=== PATIENT | female | born 1955 | race Caucasian/White ===

== ENCOUNTER 2023-05-25 10:26 | Outpatient (RCR) | payer MEDICARE, BC, SELFPAY | END 2023-07-13 13:15 | disposition home or self-care (01) | LOC: PT 10:26 | PROVIDERS: PCP Family Medicine | DX: R26.9 Unspecified abnormalities of gait and mobility (principal); R53.1 Weakness; R29.3 Abnormal posture; Z96.651 Presence of right artificial knee joint; R26.89 Other abnormalities of gait and mobility | CPT/HCPCS: 97110; 97112; 97113; 97161; 97530 ==

== ENCOUNTER 2023-08-02 11:20 | Outpatient (OUT) | payer MEDICARE, BC, SELFPAY ==
[2023-08-02 11:53] LABS: Bilirubin Urine NEGATIVE (NEGATIVE); Blood Urine NEGATIVE (NEGATIVE); Clarity Urine CLEAR (CLEAR); Color Urine LT. YELLOW (YELLOW); Glucose Urine UA NEGATIVE (NEGATIVE); Ketones Urine NEGATIVE (NEGATIVE); Leukocyte Esterase Urine NEGATIVE (NEGATIVE); Nitrite Urine NEGATIVE (NEGATIVE); Protein Urine NEGATIVE (NEG/TRACE); Urobilinogen Urine 0.2 EU/dL (0.2-1.0); pH Urine 6.5 (5.0-9.0)
[2023-08-02 11:55] LABS: Erythrocyte Sedimentation Rate 8 mm/hr (<=30)
[2023-08-02 11:56] LABS: Basophils Percent Auto 0.9 % (0.2-2.0); Eosinophils Absolute Auto 0.1 10^3/uL (0.0-0.7); Eosinophils Percent Auto 1.4 % (0.9-7.0); Hematocrit 36.3 % (36.0-48.0); Hemoglobin 11.6 g/dL (12.0-16.0); Immature Granulocytes Abs Auto 0.01 10^3/uL (0.00-0.03); Immature Granulocytes Pct Auto 0.3 % (0.0-0.5); Lymphocytes Absolute Auto 0.6 10^3/uL (1.2-3.8); Lymphocytes Percent Auto 16.1 % (20.5-60.0); Mean Corpuscular Hemoglobin 32.3 pg (26.7-34.0); Mean Corpuscular Volume 101.1 fL (81.0-99.0); Mean Platelet Volume 8.7 fL (9.5-13.5); Monocytes Absolute Auto 0.4 10^3/uL (0.3-0.8); Monocytes Percent Auto 10.6 % (1.7-12.0); Neutrophils Absolute Auto 2.5 10^3/uL (1.4-6.5); Neutrophils Percent Auto 70.7 % (43.0-75.0); Platelet Count 153 10^3/uL (150-450); Red Blood Count 3.59 10^6/uL (4.20-5.40); Red Cell Distribution Width 14.7 % (11.0-15.0); White Blood Count 3.5 10^3/uL (4.0-11.0)
[2023-08-02 11:59] LABS: Bacteria Urine NONE SEEN #/HPF (NONE SEEN); Crystals Seen? None Seen #/HPF (None Seen); Mucus Urine NONE SEEN (NONE SEEN); RBC Urine NONE SEEN #/HPF (0-2); Squamous Epithelial Cell Urine RARE #/LPF (NONE/RARE); WBC Urine NONE SEEN #/HPF (NONE SEEN)
[2023-08-02 12:00] LABS: Cast Seen? NONE SEEN #/LPF (NONE SEEN)
[2023-08-02 13:43] LABS: Alanine Aminotransferase 28 U/L (14-59); Albumin Globulin Ratio 1.3; Albumin Level 3.8 g/dL (3.4-5.0); Alkaline Phosphatase 59 U/L (46-116); Anion Gap 9.8; Aspartate Amino Transferase 29 U/L (15-37); BUN Creatinine Ratio 23.2; Bilirubin Total 0.7 mg/dL (0.2-1.0); Calcium 9.1 mg/dL (8.5-10.1); Chloride 105 mmol/L (98-107); Estimated GFR (African America >60 (>=60); Estimated GFR (Non-African Ame >60 (>=60); Globulin 2.9 g/dL; Glucose 89 mg/dL (74-106); Potassium 4.8 mmol/L (3.5-5.1); Sodium 140 mmol/L (136-145); Total Protein 6.7 g/dL (6.4-8.2)
[2023-08-03 05:07] LABS: Complement C3, Serum 123 mg/dL (82-167); Complement C4, Serum 32 mg/dL (12-38)
[2023-08-03 15:08] LABS: Complement, Total (CH50) >60 U/mL (>41)
== END 2023-08-02 11:21 | disposition home or self-care (01) ==
PROVIDERS: PCP Family Medicine
DX: M35.9 Systemic involvement of connective tissue, unspecified (principal); M15.0 Primary generalized (osteo)arthritis; Z79.899 Other long term (current) drug therapy
CPT/HCPCS: 36415; 80053; 81001; 85025; 85652; 86160; 86162

== ENCOUNTER 2023-09-02 08:17 | Outpatient (OUT) | payer MEDICARE, BC, SELFPAY ==
--- NOTE | 2023-09-02 08:21 | MM_ITS ---
Patient: YELENA HASKINS Exam Date: 09/02/2023 : 1955 Gender:F Ordering : DR Stevie Hoyos . Admission #: [id number] Family : Order #: [id number] CLICK HERE TO VIEW EXAM RADIOLOGY REPORT PROCEDURE: MM TOMOSYNTHESIS SCREENING BI COMPARISON: MG MAMM SCREEN 3D BO CAD, 08/31/2022. MG MAMM SCREEN 3D BO CAD, 08/27/2021. MG MAMM SCREEN BO W CAD, 08/25/2020. MG MAMM BO SCRN W CAD DIG, 11/06/2013. INDICATIONS: Screening Calculator Name NCI Breast Cancer Risk Assessment Tool 5 Year Breast Cancer Risk 1.90% Lifetime Breast Cancer Risk 5.60% Personal Breast Cancer No Personal Ovarian Cancer No Treatments None Family Cancers Father with stomach cancer at age 55; Sister with thyroid cancer at age ~50. LOCATION: [facility] BREAST COMPOSITION: Scattered areas fibroglandular density. FINDINGS: DIAGNOSTIC CATEGORY 1--NEGATIVE. RIGHT BREAST: No significant suspicious finding. No significant change has occurred. LEFT BREAST: No significant suspicious finding. No significant change has occurred. RECOMMENDATIONS: ROUTINE MAMMOGRAM AND CLINICAL EVALUATION IN 12 MONTHS. PLEASE NOTE: A NORMAL MAMMOGRAM DOES NOT EXCLUDE THE POSSIBILITY OF BREAST CANCER. A CLINICALLY SUSPICIOUS PALPABLE LUMP SHOULD BE BIOPSIED. Dictated by: Tone Merritt M.D. on 09/05/2023 at 14:40 Approved by: Tone Merritt M.D. on 09/05/2023 at 14:44
== END 2023-09-02 08:18 | disposition home or self-care (01) ==
LOC: MAMMO 08:17
PROVIDERS: PCP Family Medicine; Visit Provider Family Medicine
DX: Z12.31 Encounter for screening mammogram for malignant neoplasm of breast (principal); Z80.0 Family history of malignant neoplasm of digestive organs; Z80.8 Family history of malignant neoplasm of other organs or systems
CPT/HCPCS: 77063; 77067

== ENCOUNTER 2023-09-08 09:45 | Outpatient (RCR) | payer MEDICARE, BC, SELFPAY | END 2023-09-24 16:37 | disposition home or self-care (01) | LOC: PT 09:45 | PROVIDERS: PCP Family Medicine; Visit Provider Family Medicine | DX: M25.512 Pain in left shoulder (principal); R29.3 Abnormal posture | CPT/HCPCS: 97035; 97110; 97161 ==

== ENCOUNTER 2023-09-20 06:58 | Outpatient (OUT) | payer MEDICARE, BC, SELFPAY ==
--- NOTE | 2023-09-20 | MR_ITS ---
The [place] [id number] Patient Name: YELENA HASKINS MRN: [id number] date: 1955 Sex: F Assigned Patient Location: MRI Current Patient Location: MRI Accession/Order Number: [id number] Exam Date: 09/20/2023 07:00 Report Date: 09/20/2023 08:33 At the request of: YULISA BATRES Procedure: MR shoulder LT wo con EXAM: MR shoulder LT wo con REASON FOR EXAM: pain. TECHNIQUE: Multiplanar, multisequence imaging of the left shoulder was performed without contrast COMPARISON: No recent relevant imaging. FINDINGS: The acromioclavicular joint is congruent with joint space narrowing, capsular hypertrophy and subchondral edema. Inferior marginal osteophytes mildly narrow the supraspinatus outlet. There is bony remodeling of the distal acromion. Fluid within the subacromial subdeltoid bursa is nonspecific incidental full-thickness rotator cuff tear. Superimposed on tendinosis, there is full-thickness, fullwidth tear of the supraspinatus tendon with proximal retraction level glenoid. Full-thickness, near full width tear of the infraspinatus tendon. The teres minor tendon is intact. There is full-thickness, near full width tear of the subscapularis tendon. There is poor visualization of the intracapsular and extracapsular biceps tendon likely representing complete intracapsular biceps tendon rupture. There is diffuse atrophy of the rotator cuff muscles. The humerus is high riding on the glenoid. Intermediate to high-grade chondrosis the glenohumeral cartilage. There is circumferential labral degeneration/tearing. There is a large lobulated, septated paralabral cyst along the posterior glenoid measuring 4.3 cm in maximum dimension. Small joint effusion. Marginal osteophytes are present. The bone marrow signal is without fracture. The quadrilateral space is patent. No axillary lymphadenopathy. MR/MR shoulder LT wo con IMPRESSION: 1. Massive rotator cuff tear. 2. Biceps tendon rupture. 3. Moderate acromioclavicular osteoarthritis. 4. Severe glenohumeral osteoarthritis with circumferential labral degeneration and large paralabral cyst the posterior margin of the glenoid. Electronically authenticated by: RULA MONTERO Date: 09/20/2023 08:33
== END 2023-09-20 06:59 | disposition home or self-care (01) ==
LOC: MRI 06:58
PROVIDERS: PCP Family Medicine; Visit Provider Family Medicine
DX: M25.512 Pain in left shoulder (principal); M19.012 Primary osteoarthritis, left shoulder; S46.212A Strain of muscle, fascia and tendon of other parts of biceps, left arm, initial encounter
CPT/HCPCS: 73221

== ENCOUNTER 2023-09-26 08:10 | Outpatient (OUT) | payer MEDICARE, BC, SELFPAY ==
--- NOTE | 2023-09-26 08:20 | XR_ITS ---
The [address] [address] Patient Name: YELENA HASKINS MRN: [id number] date: 1955 Sex: F Assigned Patient Location: [facility] Current Patient Location: [facility] Accession/Order Number: [id number] Exam Date: 09/26/2023 08:25 Report Date: 09/27/2023 13:28 At the request of: CHARO TOLBERT Procedure: XR shoulder LT min 2V EXAM: XR shoulder LT min 2V HISTORY: Pain In LEft Shoulder M25.512 COMPARISON: 09/20/2023. TECHNIQUE: Routine views of the XR shoulder LT min 2V FINDINGS/ XR/XR shoulder LT min 2V IMPRESSION: 1. No acute fractures. 2. Unremarkable soft tissues. Calcified left hilar lymph nodes. Left lower lung granulomata. 3. Advanced glenohumeral and more moderate AC joint degeneration. Likely intra-articular osteochondral bodies are noted along the superior aspect of glenohumeral joint. Maintained alignment. Electronically authenticated by: ALBERTO VALLES Date: 09/27/2023 13:28
== END 2023-09-26 08:11 | disposition home or self-care (01) ==
LOC: RAD 08:12
PROVIDERS: PCP Family Medicine; Visit Provider Orthopaedic Surgery
DX: M25.512 Pain in left shoulder (principal)
CPT/HCPCS: 73030

== ENCOUNTER 2023-11-11 13:43 | Outpatient (OUT) | payer MEDICARE, BC, SELFPAY ==
--- OUTSIDE RECORDS SUMMARY | 2023-11-11 13:56 | XMS_ITS | CCD ---
Author Name Unknown Address [id number] [place] [address] Organization [facility] Team Providers Care Anesthesiology Faculty Name Role Phone Wood, Star A Unavailable Unavailable Wood, Star A Unavailable Unavailable Wood, Star A Unavailable Unavailable Wood, Star A Unavailable Unavailable FOSTER, NEW Unavailable Unavailable FOSTER, NEW Unavailable Unavailable STEPHEN BROWN Unavailable Unavailable HEDDLEMANNY, ARLYN Meneses Unavailable Unavailable FOSTER, NEW Unavailable Unavailable DAYRON ZAVALA Unavailable Unavailable Lisy Mendoza Unavailable Lisy Mendoza Primary Care Provider [phone] Lisy Mendoza Primary Care Provider [phone] Lisy Mendoza DO Primary Care Provider Stephen Alicea Unavailable DR YULISA ANDREWS Primary Care Unavailable MISC, DR COBB Admitting Unavailable MISC, DR COBB Attending Unavailable MISC, DR COBB Consulting Unavailable JACINDA, DR BANKS Consulting Unavailable JACINDA, DR BANKS Admitting Unavailable JACINDA, DR BANKS Attending Unavailable HOY ., DR MÁRQUEZ Primary Care Unavailable HOY ., DR MÁRQUEZ Admitting Unavailable HOY ., DR MÁRQUEZ Attending Unavailable HOY ., DR MÁRQUEZ Consulting Unavailable HOY ., DR MÁRQUEZ Primary Care Unavailable KARASIDaniel ., DR SANTIAGO Attending Unavailabl e KARMARGRET ., DR SANTIAGO Admitting Unavailabl e HOY ., DR MÁRQUEZ Primary Care Unavailable KARMARGRET ., DR SANTIAGO Consulting Unavailabl e KEVIN, DR LISY Ambrosio Consulting Unavailable MEDARDO ., DR MÁRQUEZ Primary Care Unavailable MISC, DR COBB Attending Unavailable KEVIN, DR LISY Ambrosio Consulting Unavailable MISC, DR COBB Admitting Unavailable MISC, DR COBB Consulting Unavailable JACINDA, DR BANKS Consulting Unavailable MONACO, DR BANKS Admitting Unavailable MONACO, DR BANKS Attending Unavailable HOY ., DR MÁRQUEZ Primary Care Unavailable MONACO, DR BANKS Consulting Unavailable MONACO, DR BANKS Admitting Unavailable MONACO, DR BANKS Attending Unavailable HOY ., DR MÁRQUEZ Primary Care Unavailable HOY ., DR MÁRQUEZ Admitting Unavailable HOY ., DR MÁRQUEZ Attending Unavailable HOY ., DR MÁRQUEZ Consulting Unavailable HOY ., DR MÁRQUEZ Primary Care Unavailable ZIEBER, DR CHARO Charles Consulting Unavailable Yulisa Batres MD Primary Care Provider [phone] Yulisa Batres MD Primary Care Provider [phone] Mal, Mary Admitting Unavailable Mal, Mary Attending Unavailable Hoy, Yulisa M Primary Care Unavailable Monaco, Darren Referring Unavailable FOSTER, NEW Admitting Unavailable HOY, YULISA M Primary Care Unavailable FOSTER, NEW Attending Unavailable CHAD [place] Consulting Unavailable FOSTER, NEW Referring Unavailable FOSTER, NEW Attending Unavailable HOY, YULISA M Primary Care Unavailable FOSTER, NEW Referring Unavailable FOSTER, NEW Attending Unavailable HOY, YULISA M Primary Care Unavailable SELF, SELF Referring Unavailable HOY, YULISA M Primary Care Unavailable FOSTER, NEW Attending Unavailable FOSTER, NEW Referring Unavailable SELF, SELF Referring Unavailable LISY MENDOZA Primary Care Unavailable FOSTER, NEW Attending Unavailable FOSTER, NEW Referring Unavailable HOY, YULISA M Primary Care Unavailable FOSTER, NEW Attending Unavailable FOSTER, NEW Referring Unavailable HOY, YULISA M Primary Care Unavailable FOSTER, NEW Attending Unavailable HOY, YULISA M Primary Care Unavailable ABBY, RAJINDER Attending Unavailable ABBY, RAJINDER Referring Unavailable ABBYRAJINDER Attending Unavailable ABBY, RAJINDER Referring Unavailable HOY, YULISA M Primary Care Unavailable Allergies Allergy Classification Reported Allergen(s) Allergy Type Date of Onset Reaction(s) Facility Alendronate (1 source) Alendronate Drug Allergy Abdominal Discomfort, Dyspepsia [facility] Anti-Epileptic Agents (3 sources) gabapentin Drug Allergy Nausea and Vomiting, Blisters [facility] Sulfamethoxazole / Trimethoprim (1 source) Sulfamethoxazole / Trimethoprim Drug Allergy Myalgia [facility] (20 sources) Alendronate Drug Allergy Abdominal Discomfort, Dyspepsia [facility] Work Phone: (20 sources) gabapentin Drug Allergy 018 Nausea and Vomiting [facility] Work Phone: (20 sources) gabapentin Drug Allergy 018 Blisters [facility] Work Phone: (20 sources) OXcarbazepine Drug Allergy 018 Nausea and Vomiting [facility] Work Phone: (7 sources) Ciprofloxacin Drug Allergy 021 Unknown, Unknown Reaction [facility] (6 sources) levoFLOXacin Drug Allergy 023 Unknown [employer] [facility] [employer] Other (7 sources) Sulfamethoxazole / Trimethoprim Drug Allergy Myalgia [facility] [employer] Other (1 source) Alendronate Drug Allergy [facility] Rep[facility] (1 source) gabapentin Drug Allergy [facility] (1 source) gabapentin Drug Allergy [facility] (1 source) OXcarbazepine Drug Allergy [facility] (2 sources) Alendronate; Translations: [alendronate sodium] Drug Allergy Unknown Reaction [facility] (2 sources) Sulfamethoxazole; Translations: [sulfamethoxazole] Drug Allergy Weakness [facility] (2 sources) Trimethoprim; Translations: [trimethoprim] Drug Allergy 021 Weakness [facility] (1 source) Ciprofloxacin Drug Allergy [facility] (1 source) gabapentin Drug Allergy [facility] (1 source) OXcarbazepine Drug Allergy [facility] (3 sources) Oxcarbazepine Propensity to adverse reactions to drug Nausea and Vomiting [facility] Medications Current Medications Medication Drug Class(es) Dates Sig (Normalized) Sig (Original) acetaminophen 325 mg oral tablet (20 sources) Start: 04-26-2023 take 2 tablets by mouth every four hours as needed Acetaminophen 325 MG tablet Take 2 tablets by mouth every 4 hours as needed for Mild Pain. Do not exceed 4000mg of Tylenol in 24 hour period. 50 tablet 1 04/26/2023 Active Start: 05-07-2021 take 1 tablet by thuy th every twelve hours Acetaminophen (Tylenol Arthritis) 650 mg Tablet Extended Release Active 650 MG PO Q12H May 07, 2021 12:00am Start: 11-21-2018 take 2 tablets by mo uth every six hours acetaminophen (TYLENOL) tablet 1,000 mg Start: 07-18-2017 End: 11-24-2018 take 2 tablets by mouth every four hours as needed acetaminophen 325 MG tablet Take 2 tablets by mouth every 4 hours as needed for Mild Pain. 50 tablet 1 11/21/2018 Active Acetaminophen (T YLENOL ARTHRITIS PAIN PO) Take 2 tablets by mouth as needed. Active ALPHA LIPOIC ACID PO (20 sources) ALPHA LIPOIC ACI D PO take 200 mg by mouth 3 times daily.. 0 Active ALPHA LIPOIC ACI D PO take 200 mg by mouth 3 times daily.. Active amoxicillin 500 mg oral capsule (19 sources) Penicillin-class Antibacterial Start: 11-19-2020 End: 11-19-2021 amoxicillin 500 MG capsule Take 4 capsules 1 hour before procedure 8 capsule 1 11/19/2020 11/19/2021 Active Start: 03-01-2019 End: 03-01-2020 amoxicillin 500 MG Cap capsu le Take 4 capsules 1 hour before procedure 8 capsule 1 03/01/2019 03/01/2020 Active amoxicillin 250 MG capsule Take 2 capsules by mouth every 8 hours. 4 capsules 1 hour before procedure 0 Active take 4 capsules by m outh every eight hours amoxicillin 250 MG capsule Take 500 mg by mouth every 8 hours. 4 capsules 1 hour before procedure 0 Active apixaban 2.5 mg oral tablet (18 sources) Factor Xa Inhibitor Start: 04-26-2023 End: 05-31-2023 take 1 tablet by mouth every twelve hours apixaban 2.5 MG tablet Take 1 tablet by mouth every 12 hours. This medication is for blood clot prevention 70 tablet 0 04/26/2023 Active Start: 11-21-2018 End: 12-26-2018 take 1 tablet by mouth every twelve hours apixaban 2.5 MG Tab tablet Take 1 tablet by mouth every 12 hours. This medication is for blood clot prevention 70 tablet 0 11/21/2018 Active ascorbic acid 500 mg oral tablet (20 sources) Vitamin C Start: 10-01-2020 take 1 tablet by mouth once daily Ascorbic Acid (Vitamin C) (Vitamin C) 500 mg Tablet Active 500 MG PO Daily October 01, 2020 1:00am take 1 tablet by mouth once nikkie y Ascorbic acid 500 MG tablet Take 1 tablet by mouth daily. 0 Active Ascorbic Acid (V itamin C) 1000 MG tablet Take 500 mg by mouth daily. 0 Active biotin 1 mg chewable tablet (9 sources) Start: 05-07-2021 take 1000 ug by mouth once daily Biotin Active 1000 MCG PO Daily May 07, 2021 12:00am Start: 10-01-2020 take 38346 ug by thuy th twice daily Biotin Active 53733 MCG PO Twice daily October 01, 2020 1:00am Biotin 1 MG caps ule Take by mouth daily. 0 Active take 2 tablets by mo wvh twice daily Biotin 94086 MCG Tab Take 2 tablets by mouth 2 times daily. 0 Active bisacodyl 10 mg rectal suppository (1 source) Stimulant Laxative Start: 11-21-2018 bisacodyl (DULCOLAX) suppository 10 mg calcium carbonate 500 mg chewable tablet (1 source) Start: 11-21-2018 calcium carbon ate (TUMS) tablet 500 mg calcium carbonate 1500 mg / cholecalciferol 200 unt oral capsule (20 sources) Vitamin D Start: 10-01-2020 take 1 capsule by mouth once daily Calcium Carbonate-Vitamin D3 (Calcium 600 + D(3)) 600 mg calcium- 200 unit Capsule Active 1 CAP PO Daily October 01, 2020 1:00am [employer] [place] cium w/D 500-5 MG-MCG tablet Take by mouth daily. 0 Active take 2.5 tablets by mouth once daily at lunch Calcium Carb-Cholecalciferol (CALCIUM 60 0 + D) 600-200 MG-UNIT Tab tablet Take 2.5 tablets by mouth Daily (with lunch). 0 Active carvedilol 12.5 mg oral tablet (6 sources) alpha-Adrenergic Heidi, beta-Adrenergic Heidi Start: 12-21-2022 take 1 tablet by mouth twice daily carveDILOL 12.5 MG tablet Take 1 tablet by mouth 2 times daily. 0 12/21/2022 Active Chondroitin Sulfates / Glucosamine (20 sources) Glucosamine-David droitin (GLUCOSAMINE CHONDR COMPLEX PO) take 1 tablet by mouth daily.. 0 Active Glucosamine-David droitin (GLUCOSAMINE CHONDR COMPLEX PO) take 1 tablet by mouth daily.. Active clonazePAM 0.5 mg oral tablet (20 sources) Benzodiazepine Start: 07-01-2018 take 0.5-1 tablets by mouth at bedtime as needed clonazePAM 0.5 MG Tab tablet TAKE 1/2 TO 1 TABLET BY MOUTH AT BEDTIME NEEDED 1 07/01/2018 Active D-BIOTIN (18 sources) Biotin 55553 MCG Tab take 2 tablets by mouth 2 times daily.. 0 Active Biotin 04882 MCG Tab take 2 tablets by mouth 2 times daily.. Active 1 ml dexamethasone phosphate 4 mg/ml injection (12 sources) Corticosteroid Start: 03-01-2019 dexamethasone 4 MG/ML Solution injection 1 mL by Other route As directed for 18 doses. (1 cc 3 x a week at physical therapy via iontophoresis) for up to 18 doses. 30 mL 0 03/01/2019 Active Start: 11-22-2018 End: 11-22-2018 take 10 mg intravenous route every twenty-four hours dexamethasone (DECADRON) injection 10 mg diclofenac sodium 0.01 mg/mg topical gel (14 sources) Nonsteroidal Anti-inflammatory Drug Start: 10-01-2020 Diclofenac Sodium 1 % Gel gel Diclofenac Diclofenac Sodium Active 4 GM Topical Four times daily October 01, 2020 10:38am 10-01-[address] [facility] ([id number]) 0 10/01/2020 Active Start: 10-01-2020 apply 4 g topically four times daily Diclofenac Sodium Active 4 GM TOPICAL Four times daily October 01, 2020 1:00am Start: 01-09-2018 End: 11-24-2018 VOLTAREN 1 % Gel gel 1 Appli cation as needed. 01/09/2018 11/24/2018 Discontinued docusate sodium 100 mg oral capsule (20 sources) Start: 04-26-2023 take 1 capsule by mouth twice daily Docusate 100 MG capsule Take 1 capsule by mouth 2 times daily. Hold for loose stools. 60 capsule 0 04/26/2023 Active Start: 07-18-2017 End: 11-24-2018 take 1 capsule by mouth twice daily docusate 100 MG Cap capsule Take 1 capsule by mouth 2 times daily. 60 capsule 0 11/21/2018 Active docusate sodium 50 mg / sennosides, detention 8.6 mg oral tablet (1 source) Start: 11-21-2018 senna-docusate (SENOKOT-S) 8.6-50 MG per tablet 2 tablet doxazosin 4 mg oral tablet (6 sources) alpha-Adrenergi c Heidi Start: 12-30-2022 take 1 tablet by mouth once daily Doxazosin 4 MG tablet Take 1 tablet by mouth daily. 0 12/30/2022 Active Fish Oils (1 source) take 1 capsule by mouth once daily Fish Oil 1000 MG 1 capsule Orally Once a day for 30 day(s) Active folic acid 1 mg oral tablet (20 sources) Start: 10-01-2020 take 1 mg by mouth once daily Folic Acid Active 1 MG PO Daily October 01, 2020 1:00am glucosamine 500 mg oral tablet (1 source) take 1 capsule by mouth once daily Glucosamine 500 MG 1 capsule with a meal Orally Once a day for 30 day(s) Active Djdigrvneiy-Lyilepepl-X it C-Mn (Glucosamine 1500 Complex) capsule (1 source) Glucosamine-David dr oit-Vit C-Mn (Glucosamine 1500 Complex) capsule Take by mouth daily. 0 Active Txrygizdsbi-Ork-Wpzvcdf um-Vitc (Glucosamine Complex-Msm) Capsule (1 source) Start: 10-01-2020 take 1 capsule by mouth once daily Quxttznuncu-Rgg-Kp gnesium-Vitc (Glucosamine Complex-Msm) Capsule Active 1 CAP PO Daily October 01, 2020 1:00am 1 ml hydrALAZINE hydrochloride 20 mg/ml injection (1 source) Arteriolar Vasodilator Start: 11-21-2018 take 10 mg intravenous route every six hours as needed hydrALAzine (APRESOLINE) injection 10 mg hydroCHLOROthiazide 25 mg / triamterene 37.5 mg oral tablet (20 sources) Potassium-spari ng Diuretic, Thiazide Diuretic Start: 05-07-2021 take 1 tablet by mouth once daily Triamterene-Hydroc hlorothiazid Active 1 TAB PO Daily May 07, 2021 12:00am Start: 11-21-2018 take 1 tablet by thuy th once daily 1 tablet, Oral, DAILY, First dose on Tue11/21/18 at 1230, Until Discontinued triamterene-hydr ochlorothiazide 37.5-25 MG Cap Take 1 capsule by mouth as needed (edema). 0 Active Triamterene-HCTZ 37.5-25 MG Oral for 90 Active 1 ml HYDROmorphone hydrochloride 1 mg/ml cartridge (1 source) Opioid Agonist Start: 11-21-2018 take 0.5 mg intravenous route every four hours as needed HYDROmorphone (DILAUDID) injection 0.5 mg hydroxychloroquine sulfate 200 mg oral tablet (16 sources) Antimalarial, Antirheumatic Agent Start: 10-01-2020 End: 11-24-2018 take 200 mg by mouth twice daily Hydroxychloroquine Active 200 MG PO Twice daily October 01, 2020 1:00am take 1 tablet by mouth twice anand ly Hydroxychloroquine 200 MG tablet Take 1 tablet by mouth 2 times daily. 0 Active leflunomide 20 mg oral tablet (14 sources) Antirheumatic Agent Start: 10-01-2020 take 20 mg by mouth once daily Leflunomide Active 20 MG PO Daily October 01, 2020 1:00am Start: 10-03-2016 End: 11-24-2018 leflunomide 20 MG Tab take 2 0 mg by mouth at bedtime.. 10/03/2016 11/24/2018 Discontinued lisinopril 10 mg oral tablet (20 sources) Angiotensin Converting Enzyme Inhibitor Start: 10-01-2020 take 10 mg by mouth once daily Lisinopril Active 10 MG PO Daily October 01, 2020 1:00am take 1 tablet by mouth once nikkie y lisinopril 40 MG tablet Take 1 tablet by mouth daily. 0 Active meloxicam 7.5 mg oral tablet (5 sources) Nonsteroidal Anti-inflammatory Drug Start: 04-26-2023 take 1 tablet by mouth once daily at mealtime Meloxicam 7.5 MG tablet Take 1 tablet by mouth daily. Take with food. 30 tablet 0 04/26/2023 Active methotrexate 2.5 mg oral tablet (9 sources) Folate Analog Metabolic Inhibitor Start: 10-03-2020 take 5 tablets by mouth every week methotrexate 2.5 MG tablet TAKE 5 TABLETS BY MOUTH ONCE EVERY WEEK 0 10/03/2020 Active Start: 10-01-2020 Methotrexate S odium Active 12.5 MG PO Q7D October 01, 2020 1:00am 6 one day a week on Tuesday End: 11-24-2018 methotrexate 2.5 MG tablet e very 7 days. 0 Active methylPREDNISolone 4 mg oral tablet (2 sources) Corticosteroid Start: 02-21-2023 methylPREDNIso lone 4 MG Tab Therapy Pack tablet as needed. 0 02/21/2023 Active Start: 02-21-2023 methylPREDNIso lone 4 MG Tab Therapy Pack tablet As directed. 0 02/21/2023 Active Multiple Vitamins-Minerals ( MULTIVITAMIN ADULT PO) (20 sources) Multiple Vitamin s-Minerals (MULTIVITAMIN ADULT PO) take 1 tablet by mouth at bedtime.. 0 Active Multiple Vitamin s-Minerals (MULTIVITAMIN ADULT PO) take 1 tablet by mouth at bedtime.. Active Multivitamin preparation (2 sources) Start: 10-01-2020 take 1 tablet by mouth once daily Multivitamin Active 1 TAB PO Daily October 01, 2020 1:00am Multivitamin as directed Orally Active 2 ml ondansetron 2 mg/ml injection (1 source) Serotonin-3 Receptor Antagonist Start: 11-21-2018 take 4 mg intravenous route every four hours as needed ondansetron 4mg/2ml (ZOFRAN) injection 4 mg oxyCODONE hydrochloride 5 mg oral tablet (18 sources) Opioid Agonist Start: 04-26-2023 oxyCODONE 5 MG tablet Indications: Acute postoperative pain of right knee Take one to two tabs every 4-6 hours as needed for severe pain. Wean as tolerated 30 tablet 0 04/26/2023 Active Start: 07-18-2017 End: 11-29-2018 take 1-2 tablets by mouth every four to six hours as needed for pain oxyCODONE 5 MG Tab tablet Indications: Acute postoperative pain of left knee Take 1-2 tabs po q 4-6 hours PRN pain. 60 tablet 0 11/21/2018 Active pantoprazole 40 mg delayed release oral tablet (20 sources) Proton Pump Inhibitor Start: 11-21-2018 take 40 mg by mouth once daily Pantoprazole Active 40 MG PO Daily October 01, 2020 1:00am predniSONE 5 mg oral tablet (7 sources) Start: 05-07-2021 Prednisone Act damian 5 MG PO Twice daily May 07, 2021 12:00am Dr Monaco placed on. 1-2 as needed per day pregabalin 25 mg oral capsule (7 sources) Start: 02-15-2023 pregabalin 25 MG capsule every 12 hours. 0 02/15/2023 Active Pregabalin 25 MG Oral for 30 Active psyllium 520 mg oral capsule (20 sources) Start: 07-01-2021 Psyllium Husk (Metamucil) 0.52 gram Capsule Active 0.52 GM PO Daily May 07, 2021 12:00am take 1 dose by mouth once daily in the evening Psyllium (METAMUCIL FIBER PO) take 1 Dos e by mouth every evening.. 0 Active take 1 dose by mouth once daily in the evening Psyllium (METAMUCIL FIBER PO) take 1 Dos e by mouth every evening.. Active 1000 ml sodium chloride 9 mg/ml injection (2 sources) Start: 11-21-2018 End: 11-21-2018 sodium chloride 0.9% IV solution sodium phosphate, dibasic 35.5 mg/ml / sodium phosphate, monobasic 96.4 mg/ml enema (1 source) Start: 11-21-2018 sodium phospha te w/sodium biphosphate (FLEETS) enema 1 enema sucralfate 1000 mg oral tablet (5 sources) Aluminum Complex Start: 04-26-2023 take 1 tablet by mouth twice daily Sucralfate 1 g tablet Take 1 tablet by mouth 2 times daily. While on NSAID therapy 84 tablet 0 04/26/2023 Active therapeutic multivitamin-minera ls tablet (5 sources) Start: 04-26-2023 take 1 tablet by mouth at bedtime therapeutic multivitamin-finished cloth examiner als tablet Take 1 tablet by mouth at bedtime. 30 tablet 0 04/26/2023 Active thioctic acid 200 mg oral tablet (2 sources) Start: 10-01-2020 take 200 mg by mouth once daily Alpha Lipoic Acid Active 200 MG PO Daily October 01, 2020 1:00am Alpha-Lipoic Aci d 200 MG capsule 1 capsule daily. 0 Active tiZANidine 4 mg oral tablet (7 sources) Central alpha-2 Adrenergic Agonist take 1 tablet by mouth every six hours as needed tiZANidine 4 MG tablet Take 1 tablet by mouth every 6 hours as needed for Muscle spasms. 0 Active traMADol hydrochloride 50 mg oral tablet (12 sources) Opioid Agonist Start: 3 take 1 tablet by mouth three times daily as needed for pain traMADol 50 MG tablet Take 1 tablet by mouth 3 times daily as needed for Pain. 0 07/27/2023 Active Start: 10-01-2020 take 50 mg by mouth twice daily Tramadol Active 50 MG PO Twice daily October 01, 2020 1:00am Start: 11-03-2017 End: 11-24-2018 traMADol 50 MG Tab tablet TA KE 1 TABLET TWICE A DAY NEEDED 2 11/03/2017 11/24/2018 Discontinued triamcinolone acetonide 0.25 mg/ml topical cream (7 sources) Corticosteroid Start: 05-07-2021 Triamcinolone Acetonide Active 1 APPLIC TOPICAL Twice daily May 07, 2021 12:00am Start: 03-11-2021 End: 03-11-2021 triamcinolone (KENALOG-40) i njection 1 mL Start: 11-19-2020 End: 11-19-2020 triamcinolone (KENALOG-40) i njection 1 mL Start: 11-21-2019 End: 11-21-2019 triamcinolone (KENALOG-40) i njection 1 mL Start: 11-21-2019 End: 11-21-2019 triamcinolone (KENALOG-40) i njection 1 mL TURMERIC CURCUMIN PO (4 sources) TURMERIC CURCUMI N PO Take by mouth. 0 Active Turmeric Root Extract (2 sources) Start: 05-07-2021 take 500 mg by mouth once daily Turmeric Root Extract Active 500 MG PO Daily May 07, 2021 12:00am TURMERIC PO as d irected Orally 0 Active zolpidem tartrate 5 mg oral tablet (1 source) gamma-Aminobutyric Acid-ergic Agonist Start: 11-21-2018 zolpidem (AMBIEN) tablet 5 mg zonisamide 100 mg oral capsule (20 sources) Anti-epileptic Agent Start: 10-01-2020 take 100 mg by mouth at bedtime Zonisamide Active 100 MG PO Bedtime October 01, 2020 1:00am Completed/Discontinued Medications Medication Drug Class(es) Dates Sig (Normalized) Sig (Original) baclofen 10 mg oral tablet (20 sources) gamma-Aminobutyri c Acid-ergic Agonist Start: 11-21-2018 take 20 mg by mouth three times daily as needed 20 mg, Oral, 3 TIMES DAILY NEEDED, Starting Tue11/21/18 at 1145, Until Discontinued, Muscle spasms take 2 tablets by mo uth three times daily as needed baclofen 10 MG Tab Take 20 mg by mouth 3 times daily as needed. 0 Active Calcium-Vitamin D 600-200 Mg-Unit Po Tabs (3 sources) End: 11-24-2018 take 1.5 tablets by mouth once daily in the morning Calcium-Vitamin D 600-200 MG-UNIT Tab take 1.5 tablets by mouth daily every morning.. 11/24/2018 Discontinued take 1.5 tablets by mouth once daily in the morning Calcium-Vitamin D 600-200 MG-UNIT Tab ta ke 1.5 tablets by mouth daily every morning.. Active ceFAZolin 2000 mg injection (1 source) Cephalosporin Antibacterial Start: 11-21-2018 End: 11-22-2018 take 2 g intravenous route every eight hours ceFAZolin (ANCEF) 2 g in dextrose 100 mL premix IVPB celecoxib 200 mg oral capsule (1 source) Nonsteroidal Anti-inflammatory Drug Start: 11-21-2018 End: 11-21-2018 celecoxib (CELEBREX) capsule 200 mg ferrous sulfate 325 mg oral tablet (7 sources) Start: 10-01-2020 End: 05-07-2021 take 325 mg by mouth twice daily Ferrous Sulfate Discontinued 325 MG PO Twice daily October 01, 2020 1:00am May 07, 2021 11:17am take 1 tablet by thuy th twice daily as needed ferrous sulfate 325 (65 Fe) MG Tab DR tablet Take 325 mg by mouth 2 times daily as needed. 0 Active ibandronic acid 150 mg oral tablet (20 sources) Bisphosphonate Start: 10-01-2020 End: 05-07-2021 take 150 mg by mouth every month Ibandronate Discontinued 150 MG PO every month October 01, 2020 1:00am May 07, 2021 11:16am Start: 09-10-2016 take 1 tablet by thuy th every 30 days ibandronate 150 MG Tab Take 1 tablet by mouth every 30 days. 0 09/10/2016 Active 1 ml ketorolac tromethamine 15 mg/ml cartridge (1 source) Nonsteroidal Anti-inflammatory Drug, Cyclooxygenase Inhibitor Start: 11-21-2018 End: 11-24-2018 take 15 mg intravenous route every six hours ketorolac (TORADOL) injection 15 mg 10 ml lidocaine hydrochloride 10 mg/ml injection (9 sources) Antiarrhythmic, Amide Local Anesthetic Start: 03-11-2021 End: 03-11-2021 lidocaine 1% (PF) (XYLOCAINE MPF) 1 % injection 5 mL Start: 11-19-2020 End: 11-19-2020 lidocaine 1% (PF) (XYLOCAINE MPF) 1 % injection 5 mL Start: 11-21-2019 End: 11-21-2019 lidocaine 1% (PF) (XYLOCAINE MPF) 1 % injection 5 mL Start: 11-21-2019 End: 11-21-2019 lidocaine 1% (PF) (XYLOCAINE MPF) 1 % injection 5 mL Start: 04-12-2017 End: 11-24-2018 lidocaine 5 % Ointment as ne eded.. 6 04/12/2017 11/24/2018 Discontinued magnesium oxide 400 mg oral tablet (3 sources) Start: 09-27-2016 End: 11-24-2018 Magnesium Oxide 400 (240 Mg) MG Tab take 400 mg by mouth as needed.. 09/27/2016 11/24/2018 Discontinued OXcarbazepine 150 mg oral tablet (3 sources) Anti-epileptic Agent Start: 01-03-2018 End: 11-24-2018 OXcarbazepine 150 MG Tab ropivacaine (NAROPIN) 1 % 400 mg, EPINEPHrine PF (ADRENALIN) 1 MG/ML 1 mg, ketorolac (TORADOL) 30 MG/ML 30 mg, cloNIDine 100 MCG/ML 184 mcg, sodium chloride 0.9% 45 mL 88.84 mL (total volume) (1 source) Start: 11-21-2018 End: 11-21-2018 ropivacaine (NAROPIN) 1 % 400 mg, EPINEPHrine PF (ADRENALIN) 1 MG/ML 1 mg, ketorolac (TORADOL) 30 MG/ML 30 mg, cloNIDine 100 MCG/ML 184 mcg, sodium chloride 0.9% 45 mL 88.84 mL (total volume) tranexamic acid 650 mg oral tablet (1 source) Antifibrinolytic Agent Start: 11-21-2018 End: 11-21-2018 tranexamic acid (LYSTEDA) tablet 1,950 mg vancomycin (VANCOCIN) 1,250 mg in sodium chloride 0.9%, with overfill 287.5 mL (total volume) IVPB (2 sources) Start: 11-21-2018 End: 11-22-2018 vancomycin (VANCOCIN) 1,250 mg in sodium chloride 0.9%, with overfill 287.5 mL (total volume) IVPB Start: 11-21-2018 End: 11-21-2018 vancomycin (VANCOCIN) 1,250 mg in sodium chloride 0.9%, with overfill 287.5 mL (total volume) IVPB Problems Active Problems Problem Classification Problem Date Documented Date Episodic/Chronic Deficiency and other anemia (1 source) Iron deficiency anemia; Translations: [Iron deficiency anemia, unspecified] 05-07-2021 Episodic Diseases of white blood cells (1 source) Leukopenia; Translations: [Decreased white blood cell count, unspecified] 05-07-2021 Chronic Disorders of lipid metabolism (9 sources) Hyperlipidemia, unspecified; Translations: [Hyperlipidemia] Onset: 10-18-2022 Chronic Esophageal disorders (20 sources) Gastroesophageal reflux disease; Translations: [Gastro-esophageal reflux disease without esophagitis] Onset: 2017 2017 Chronic Essential hypertension (20 sources) Benign hypertension; Translations: [Essential (primary) hypertension] Onset: 2017 2017 Chronic Headache; including migraine (4 sources) Headache; including migraine; Translations: [HEADACHE UNSPECIFIED] Onset: 04-20-2022 Nutritional deficiencies (1 source) Vitamin D deficiency, unspecified; Translations: [VITAMIN D DEFICIENCY UNSPECIFIED] Onset: 10-26-2022 Chronic Osteoarthritis (9 sources) Primary generalized (osteo)arthritis; Translations: [Osteoarthritis of right knee joint] Onset: 02-12-2023 04-26-2023 Chronic Osteoporosis (4 sources) Age-related osteoporosis without current pathological fracture; Translations: [AGE-REL OSTEOPOR W/O CURR PATH FX] Onset: 08-27-2022 Chronic Other aftercare (1 source) Other care home (current) drug therapy; Translations: [OTH HOSPITALITY DIRECTOR CURRENT DRUG THERAPY] Onset: 02-12-2023 Episodic Other circulatory disease (5 sources) Raynaud's phenomenon; Translations: [Raynaud's syndrome without gangrene] Onset: 04-20-2023 04-20-2023 Chronic Other connective tissue disease (5 sources) History of total knee arthroplasty; Translations: [Hx of total knee arthroplasty, left] Chronic Other connective tissue disease (2 sources) History of right total knee replacement; Translations: [Presence of right artificial knee joint] 05-11-2023 Chronic Other connective tissue disease (1 source) History of left total knee replacement; Translations: [Presence of left artificial knee joint] 08-30-2023 Chronic Other connective tissue disease (2 sources) Presence of right artificial knee joint; Translations: [Presence of right artificial knee joint] Onset: 09-01-2023 Chronic Other connective tissue disease (2 sources) Presence of left artificial knee joint; Translations: [Presence of left artificial knee joint] Onset: 09-01-2023 Chronic Other connective tissue disease (1 source) Disorder of tendon; Translations: [Extensor mechanism malalignment] Episodic Other hematologic conditions (1 source) 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; Translations: [Other specified diseases of blood and blood-forming organs] 10-01-2020 Chronic Other non-traumatic joint disorders (2 sources) Knee pain; Translations: [Postoperative pain of left knee] Episodic Other non-traumatic joint disorders (2 sources) Pain in right hip; Translations: [Right hip pain] Episodic Other non-traumatic joint disorders (1 source) Joint pain; Translations: [Pain in prosthetic joint, initial encounter] Episodic Other non-traumatic joint disorders (7 sources) Pain in left knee; Translations: [Pain in left knee] Onset: 11-21-2018 11-21-2018 Other non-traumatic joint disorders (1 source) Arthritis of right knee; Translations: [Arthritis of right knee] Other nutritional; endocrine; and metabolic disorders (20 sources) Obesity, unspecified; Translations: [Obese class I] Onset: 2017 2017 Chronic Other nutritional; endocrine; and metabolic disorders (7 sources) Obese class I; Translations: [Obesity (BMI 30.0-34.9)] Onset: 2017 11-21-2018 Other screening for suspected conditions (not mental disorders or infectious disease) (13 sources) Encounter for screening for malignant neoplasm of colon; Translations: [Encounter for screening mammogram for malignant neoplasm of breast] Onset: 08-31-2022 Episodic Rheumatoid arthritis and related disease (20 sources) Rheumatoid arthritis; Translations: [Rheumatoid arthritis, unspecified] Onset: 2017 2017 Chronic Spondylosis; intervertebral disc disorders; other back problems (2 sources) Lumbar spondylosis; Translations: [Spondylosis without myelopathy or radiculopathy, lumbar region] Onset: 08-31-2021 Resolved: 08-31-2021 Chronic Systemic lupus erythematosus and connective tissue disorders (10 sources) Systemic involvement of connective tissue, unspecified; 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] Onset: 02-08-2023 Chronic Thyroid disorders (5 sources) Hyperthyroidism; Translations: [Thyrotoxicosis, unspecified without thyrotoxic crisis or storm] Onset: 04-20-2023 04-20-2023 Chronic Unclassified (2 sources) Preprocedural examination done; Translations: [Pre-op exam] Unclassified (1 source) History of left total knee replacement; Translations: [Hx of total knee arthroplasty, left] Unclassified (1 source) Decreased white blood cell count, unspecified; Translations: [Decreased white blood cell count, unspecified] Onset: 05-07-2021 Urinary tract infections (5 sources) Chronic cystitis; Translations: [Other chronic cystitis without hematuria] Onset: 04-20-2023 04-20-2023 Chronic Past or Other Problems Problem Classification Problem Date Documented Da te Episodic/Chronic Deficiency and other anemia (1 source) Anemia, unspecified; Translations: [ANEMIA UNSPECIFIED] Onset: 10-26-2022 Episodic Deficiency and other anemia (1 source) Iron deficiency anemia, unspecified; Translations: [Iron deficiency anemia, unspecified] Onset: 05-07-2021 Episodic Diabetes mellitus without complication (1 source) Other abnormal glucose; Translations: [OTHER ABNORMAL GLUCOSE] Onset: 10-26-2022 Episodic Medical examination/evaluation (2 sources) Encounter for other preprocedural examination; Translations: [Encounter for other preprocedural examination] Onset: 07-01-2017 Episodic Other bone disease and musculoskeletal deformities (1 source) Other specified disorders of bone density and structure, unspecified site; Translations: [OTH D/O BONE DEN STRUCT UNS SITE] Onset: 09-01-2022 Episodic Other circulatory disease (1 source) Decreased breath sounds; Translations: [Decreased breath sounds] Episodic Other connective tissue disease (20 sources) Rupture of patellar tendon; Translations: [Patellar tendon rupture] Onset: 2017 2017 Episodic Other connective tissue disease (20 sources) Synovial hernia; Translations: [Other specified disorders of synovium and tendon, unspecified site] Onset: 11-21-2018 11-21-2018 Episodic Other nervous system disorders (2 sources) Other acute postprocedural pain; Translations: [Other acute postprocedural pain] Onset: 04-26-2023 Episodic Other non-traumatic joint disorders (20 sources) Pain in left knee; Translations: [Pain in left knee] Onset: 11-21-2018 11-21-2018 Episodic Other non-traumatic joint disorders (4 sources) Pain in right knee; Translations: [Pain in right knee] Onset: 04-26-2023 Episodic Residual codes; unclassified (1 source) Family history of malignant neoplasm of digestive organs; Translations: [FAM HX MALIG NEOPLASM DIGESTIV ORGN] Onset: 09-05-2022 Episodic Residual codes; unclassified (1 source) Family history of malignant neoplasm of other organs or systems; Translations: [FAM HX MALIG NEOPLASM OTH ORGN/SYS] Onset: 09-05-2022 Episodic Skin and subcutaneous tissue infections (5 sources) Cellulitis of left axilla; Translations: [Cellulitis of left axilla] Onset: 04-20-2023 04-20-2023 Episodic Spondylosis; intervertebral disc disorders; other back problems (2 sources) Sciatica; Translations: [Sciatica, left side] Onset: 08-31-2021 Resolved: 08-31-2021 Episodic Sprains and strains (9 sources) Strain of other muscle(s) and tendon(s) at lower leg level, unspecified leg, subsequent encounter; Translations: [Rupture of patellar tendon] Onset: 07-18-2017 2017 Episodic Unclassified (1 source) Onset: 11-24-2018 11-24-2018 Results Test Name Value Interpretation Reference Range Facility [facility] 11-03-2023 ABSOLUTE BAS 0.0 10*3/uL Normal 0.0-0.2 [facility] Comment on above: Performed By: #### C MPF, ACBC, PT #### Testing performed at [address] [address] ABSOLUTE EOS 0.1 10*3/uL Normal 0.0-0.7 [facility] Comment on above: Performed By: #### C MPF, ACBC, PT #### Testing performed at [address] [address] ABSOLUTE NEUTROPHIL COUNT 2.6 10*3/uL Normal 1.4-6.5 [facility] Comment on above: Performed By: #### C MPF, ACBC, PT #### Testing performed at [address] [place] [address] Basophils/100 WBC (Bld) 0.3 % Normal 0.0-2.0 [facility] Comment on above: Performed By: #### C MPF, ACBC, PT #### Testing performed at [address] [place] [address] DTYPE AUTO DIFF Normal [facility] Comment on above: Performed By: #### C MPF, ACBC, PT #### Testing performed at [address] [place] [address] Eosinophils/100 WBC (Bld) 1.8 % Normal 0.0-11.0 [facility] Comment on above: Performed By: #### C MPF, ACBC, PT #### Testing performed at [address] [place] [address] Lymphocytes (Bld) [#/Vol] 0.4 10*3/uL Low 1.2-3.4 [facility] Comment on above: Performed By: #### C MPF, ACBC, PT #### Testing performed at [address] [place] [address] Lymphocytes/100 WBC (Bld) 11.1 % Low 20.0-55.0 [facility] Comment on above: Performed By: #### C MPF, ACBC, PT #### Testing performed at [address] [place] [address] Monocytes (Bld) [#/Vol] 0.4 10*3/uL Normal 0.0-0.7 [facility] Comment on above: Performed By: #### C MPF, ACBC, PT #### Testing performed at [address] [place] [address] Monocytes/100 WBC (Bld) 11.1 % High 0.0-10.0 [facility] Comment on above: Performed By: #### C MPF, ACBC, PT #### Testing performed at [address] [place] [address] Neutrophils/100 WBC (Bld) 75.7 % High 37.0-75.0 [facility] Comment on above: Performed By: #### C MPF, ACBC, PT #### Testing performed at [address] [address] Erythrocyte distribution width (RBC) [Ratio] 14.5 % Normal 11.5-14.5 [facility] Comment on above: Performed By: #### C MPF, ACBC, PT #### Testing performed at [address] [address] Hematocrit (Bld) [Volume fraction] 34.7 % Low 36.0-48.0 [facility] Comment on above: Performed By: #### C MPF, ACBC, PT #### Testing performed at [address] [address] Hemoglobin (Bld) [Mass/Vol] 11.3 g/dL Low 12.0-16.0 [facility] Comment on above: Performed By: #### C MPF, ACBC, PT #### Testing performed at [address] [address] MCH (RBC) [Entitic mass] 33.4 pg Normal 26.0-35.0 [facility] Comment on above: Performed By: #### C MPF, ACBC, PT #### Testing performed at [address] [address] MCHC (RBC) [Mass/Vol] 32.4 g/dL Normal 27.0-37.0 [facility] Comment on above: Performed By: #### C MPF, ACBC, PT #### Testing performed at [address] [address] MCV (RBC) [Entitic vol] 103.1 fL High 80.0-100.0 [facility] Comment on above: Performed By: #### C MPF, ACBC, PT #### Testing performed at [address] [address] Platelet mean volume (Bld) [Entitic vol] 7.2 fL Low 7.4-11.0 [facility] Comment on above: Performed By: #### C MPF, ACBC, PT #### Testing performed at [address] [address] Platelets (Bld) [#/Vol] 175 10*3/uL Normal 130-400 [facility] Comment on above: Performed By: #### C MPF, ACBC, PT #### Testing performed at [address] [address] RBC (Bld) [#/Vol] 3.37 10*6/uL Low 4.0-5.4 [facility] Comment on above: Performed By: #### C MPF, ACBC, PT #### Testing performed at [address] [address] WBC (Bld) [#/Vol] 3.5 10*3/uL Low 3.6-11.0 [facility] Comment on above: Performed By: #### C MPF, ACBC, PT #### Testing performed at [address] [address] CBC, EDIF, PLATELETon 2022 ABSOLUTE BASOPHIL COUNT 0.0 10*3/uL 0.0 - 0.2 10*3/uL [facility] Basophils/100 WBC (Bld) 0.3 % 0.0 - 2.0 % [facility] Differential cell count method Nom (Bld) AUTO DIFF % [facility] Eosinophils (Bld) [#/Vol] 0.1 10*3/uL 0.0 - 0.7 10*3/uL [facility] Eosinophils/100 WBC (Bld) 1.8 % 0.0 - 11.0 % [facility] Erythrocyte distribution width (RBC) [Ratio] 14.5 % 11.5 - 14.5 % [facility] Hematocrit (Bld) [Volume fraction] 34.7 % Low 36.0 - 48.0 % [facility] Hemoglobin (Bld) [Mass/Vol] 11.3 g/dL Low [facility] Interpretation and review of laboratory results Abnormal [facility] Lymphocytes (Bld) [#/Vol] 0.4 10*3/uL Low 1.2 - 3.4 10*3/uL [facility] Lymphocytes/100 WBC (Bld) 11.1 % Low 20.0 - 55.0 % [facility] MCH (RBC) [Entitic mass] 33.4 pg 26.0 - 35.0 PG [facility] MCHC (RBC) [Mass/Vol] 32.4 g/dL [facility] MCV (RBC) [Entitic vol] 103.1 fL High [facility] Monocytes (Bld) [#/Vol] 0.4 10*3/uL 0.0 - 0.7 10*3/uL [facility] Monocytes/100 WBC (Bld) 11.1 % High 0.0 - 10.0 % [facility] Neutrophils (Bld) [#/Vol] 2.6 10*3/uL 1.4 - 6.5 10*3/uL [facility] Neutrophils/100 WBC (Bld) 75.7 % High 37.0 - 75.0 % [facility] Platelet mean volume (Bld) [Entitic vol] 7.2 fL Low [facility] Platelets (Bld) [#/Vol] 175 10*3/uL 130 - 400 10*3/uL [facility] RBC (Bld) [#/Vol] 3.37 10*6/uL Low 4.0 - 5.4 10*6/uL [facility] WBC (Bld) [#/Vol] 3.5 10*3/uL Low 3.6 - 11.0 10*3/uL [facility] CMP FASTINGon 11-03-2023 A:G RATIO 1.7 RATIO Normal [facility] Comment on above: Performed By: #### C MPF, ACBC, PT #### Testing performed at [address] [address] ALBUMIN 3.8 G/dl Normal 3.5-5.0 [facility] Comment on above: Performed By: #### C MPF, ACBC, PT #### Testing performed at [address] [address] ALP [Catalytic activity/Vol] 61 U/L Normal 38-126 [facility] Comment on above: Performed By: #### C MPF, ACBC, PT #### Testing performed at [address] [address] ALT [Catalytic activity/Vol] 26 U/L Normal <35 [facility] Comment on above: Performed By: #### C MPF, ACBC, PT #### Testing performed at [address] [address] AST [Catalytic activity/Vol] 36 U/L Normal 14-36 [facility] Comment on above: Performed By: #### C MPF, ACBC, PT #### Testing performed at [address] [address] Bilirubin [Mass/Vol] 0.7 mg/dL Normal 0.2-1.3 [facility] Comment on above: Performed By: #### C MPF, ACBC, PT #### Testing performed at [address] [address] Calcium [Mass/Vol] 9.4 mg/dL Normal 8.4-10.2 [facility] Comment on above: Performed By: #### C MPF, ACBC, PT #### Testing performed at [address] [address] Chloride [Moles/Vol] 104 mmol/L Normal 98-107 [facility] Comment on above: Result Comment: Sriram arriaga note: Triglyceride levels of 600mg/dL or higher may positively bias chloride results by approximately 2.1 mmol Performed By: #### C MPF, ACBC, PT #### Testing performed at [address] [address] CO2 [Moles/Vol] 28 mmol/L Normal 22-30 [facility] Comment on above: Performed By: #### C MPF, ACBC, PT #### Testing performed at [address] [address] Creatinine [Mass/Vol] 0.60 mg/dL Low 0.70-1.20 [facility] Comment on above: Performed By: #### C MPF, ACBC, PT #### Testing performed at [address] [address] EST. GFR, 127 ml/min/1.73sq.m Normal [facility] Comment on above: Performed By: #### C MPF, ACBC, PT #### Testing performed at [facility] [place] [facility] [address] [place] [address] EST. GFR,Non 105 ml/min/1.73sq.m Normal [facility] Comment on above: Performed By: #### C MPF ACBC, PT #### Testing performed at [address] [address] GFR Information Average GFR for 70+ years old = 75. 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 Kidney failure, GFR = <15. The GFR estimate is not adjusted for extreme body surface area or acute process, nor has it been validated for women or ethnic groups other than and . Performed By: #### C MPF ACBC, PT #### Testing performed at [address] [address] Glucose [Mass/Vol] 91 mg/dL Normal 70-100 [facility] Comment on above: Result Comment: NORMAL <100 mg/dL PREDIABETES 101-126 mg/dL DIABETES 126 mg/dL or higher Performed By: #### C MPF ACBC, PT #### Testing performed at [address] [address] Potassium [Moles/Vol] 3.9 mmol/L Normal 3.5-5.1 [facility] Comment on above: Performed By: #### C MPF ACBC, PT #### Testing performed at [address] [address] Protein [Mass/Vol] 6.1 g/dL Low 6.3-8.2 [facility] Comment on above: Performed By: #### C MPF ACBC, PT #### Testing performed at [address] [address] Sodium [Moles/Vol] 135 mmol/L Low 137-145 [facility] Comment on above: Performed By: #### C MPF ACBC, PT #### Testing performed at [address] [address] Urea nitrogen [Mass/Vol] 12 mg/dL Normal 7-20 [facility] Comment on above: Performed By: #### C MPF ACBC, PT #### Testing performed at [address] [address] COMPREHENSIVE METABOLIC PANE [facility] 11-03-2023 Albumin [Mass/Vol] 3.8 G/dl 3.5 - 5.0 G/dl [facility] Albumin/Globulin [Mass ratio] 1.7 {ratio} RATIO [facility] ALP [Catalytic activity/Vol] 61 U/L [facility] ALT [Catalytic activity/Vol] 26 U/L NINF [facility] AST [Catalytic activity/Vol] 36 U/L [facility] Bilirubin [Mass/Vol] 0.7 mg/dL [facility] Calcium [Mass/Vol] 9.4 mg/dL [facility] Chloride [Moles/Vol] 104 mmol/L [facility] Comment on above: Please note: Triglyc eride levels of 600mg/dL or higher may positively bias chloride results by approximately 2.1 mmol CO2 [Moles/Vol] 28 mmol/L [facility] Creatinine [Mass/Vol] 0.60 mg/dL Low [facility] GFR COMMENT Average GFR for 70+ years old = 75. [facility] Comment on above: Chronic Kidney disea se, GFR = <60. Kidney failure, GFR = <15. The GFR estimate is not adjusted for extreme body surface area or acute process, nor has it been validated for women or ethnic groups other than and . GFR/1.73 sq M.predicted among blacks MDRD (S/P/Bld) [Vol rate/Area] 127 mL/min/{1.73_m2} ml/min/1.73sq .m [facility] GFR/1.73 sq M.predicted among non-blacks MDRD (S/P/Bld) [Vol rate/Area] 105 mL/min/{1.73_m2} ml/min/1.73sq .m [facility] Glucose post fast [Mass/Vol] 91 mg/dL [facility] Comment on above: NORMAL <100 mg/dL PREDIABETES 101-126 mg/dL DIABETES 126 mg/dL or higher Interpretation and review of laboratory results Abnormal [facility] Potassium [Moles/Vol] 3.9 mmol/L [facility] Protein [Mass/Vol] 6.1 g/dL Low [facility] Sodium [Moles/Vol] 135 mmol/L Low [facility] Urea nitrogen [Mass/Vol] 12 mg/dL [facility] ECGOrdered By: Delgado da silva on 11-03-2023 [facility] Work Phone: HEMOGLOBIN A1Con 11-03-2023 Glucose [Mass/Vol] 100 mg/dL Normal [facility] Comment on above: Performed By: #### C MPF, ACBC, PT #### Testing performed at [address] [address] HbA1c (Bld) [Mass fraction] 5.1 % Normal 0-6 [facility] Comment on above: Result Comment: NORMAL <5.7% PREDIABETES 5.7-6.4% DIABETES 6.5% OR HIGHER Performed By: #### C MPF, ACBC, PT #### Testing performed at [address] [address] Glucose [Mass/Vol] 100 mg/dL [facility] HbA1c (Bld) [Mass fraction] 5.1 % 0 - 6 % [facility] Comment on above: NORMAL <5.7% PREDIABETES 5.7-6.4% DIABETES 6.5% OR HIGHER [facility] MRSA SCREENon 11-03-2023 MRSA DNA NOHELIA+probe Ql (Unsp spec) Negative Normal NEGATIVE [facility] Comment on above: Performed By: #### M RSAST #### Testing performed at [address] [address] STAPH AUREUS SCREEN Negative Normal NEGATIVE [facility] Comment on above: Result Comment: TEST ING PERFORMED BY PCR Performed By: #### M RSAST #### Testing performed at [address] [address] PROTIMEon 11-03-2023 INR Coag (PPP) [Relative time] 0.94 {INR} Normal 0.85-1.10 [facility] Comment on above: Result Comment: 2.0-3.0 THERAPEUTIC RANGE 2.5-3.5 MECHANICAL VALVE RANGE Performed By: #### C MPF, ACBC, PT #### Testing performed at [address] [address] PT Coag (PPP) [Time] 12.7 s Normal 11.8-14.4 [facility] Comment on above: Performed By: #### C MPF, ACBC, PT #### Testing performed at [facility] [address] [place] [address] PROTIME-INRon 11-03-2023 INR Coag (PPP) [Relative time] 0.94 {INR} 0.85 - 1.10 [facility] Comment on above: 2.0-3.0 THERAPEUTIC RANGE 2.5-3.5 MECHANICAL VALVE RANGE PT Coag (PPP) [Time] 12.7 s [facility] SCREEN: MRSA ONLY, NARES (IS OLATION SCREEN)on 11-03-2023 MRSA isol Org specific cx Ql (Nose) Negative NEGATIVE [facility] STAPHYOCOCCUS AUREUS BY PCR Negative NEGATIVE [facility] Comment on above: TESTING PERFORMED BY [facility] AND SCREEN CROSSMATCH C ONVERTIBLEon 11-03-2023 TYPE AND SCREEN CROSSMATCH CONVERTIBLE UNITS ORDERED 2 WORKUP EXPIRES 12/02/2023,2359 ABO/RH(D) O POSITIVE ANTIBODY SCREEN NEGATIVE ARM BAND NUMBER [id number] Normal [facility] Comment on above: Performed By: #### C MPF, ACBC, PT #### Testing performed at [facility] [address] [place] [address] URINALYSIS, MACROon 11-03-20 23 Bilirubin Ql (U) Negative NEGATIVE [facility] Clarity (U) CLEAR CLEAR [facility] Color (U) YELLOW YELLOW [facility] Glucose Test strip (U) [Mass/Vol] Negative NEGATIVE mg/dl [facility] Hemoglobin Ql (U) Negative NEGATIVE [facility] Ketones (U) [Mass/Vol] Negative NEGATIVE mg/dl [facility] Leukocyte esterase Test strip Ql (U) Negative NEGATIVE [facility] Nitrite Ql (U) Negative NEGATIVE [facility] pH (U) 7.0 [pH] 5.0 - 7.0 [facility] Protein Ql (U) Negative NEGATIVE mg/dl [facility] Specific gravity (U) [Rel density] 1.015 1.010 - 1.025 [facility] Urobilinogen (U) [Mass/Vol] 0.2 mg/dL [facility] URINE MACROSCOPICon 11-03-20 Bilirubin Ql (U) Negative Normal NEGATIVE [facility] Comment on above: Performed By: #### U MAC #### Testing performed at [address] [address] Clarity (U) CLEAR Normal CLEAR [facility] Comment on above: Performed By: #### U MAC #### Testing performed at [address] [address] Color (U) YELLOW Normal YELLOW [facility] ([facility]) Comment on above: Performed By: #### U MAC #### Testing performed at [address] [address] Glucose Ql (U) Negative Normal NEGATIVE [facility] Comment on above: Performed By: #### U MAC #### Testing performed at [address] [address] pH (U) 7.0 [pH] Normal 5.0-7.0 [facility] Comment on above: Performed By: #### U MAC #### Testing performed at [address] [place] [address] URINE HEMOGLOBIN Negative Normal NEGATIVE [facility] Comment on above: Performed By: #### U MAC #### Testing performed at [address] [place] [address] URINE KETONE Negative Normal NEGATIVE [facility] Comment on above: Performed By: #### U MAC #### Testing performed at [address] [address] URINE LEUKOTEST Negative Normal NEGATIVE [facility] Comment on above: Performed By: #### U MAC #### Testing performed at [address] [place] [address] URINE NITRATES Negative Normal NEGATIVE [facility] Comment on above: Performed By: #### U MAC #### Testing performed at [address] [address] URINE SPEC GRAVITY 1.015 Normal 1.010-1.025 [facility] Comment on above: Performed By: #### U MAC #### Testing performed at [address] [address] URINE TOTAL PROTEIN Negative Normal NEGATIVE [facility] Comment on above: Performed By: #### U MAC #### Testing performed at [address] [address] Urobilinogen Qn (U) 0.2 {Flaquita'U}/dL Normal 0.2-1.0 [facility] Comment on above: Performed By: #### U MAC #### Testing performed at [address] [address] BMP FASTINGon 04-27-2023 Anion gap [Moles/Vol] 6 mmol/L Low 8-16 [facility] Comment on above: Performed By: #### A CBC, BMPF #### Testing performed at [address] [address] Calcium [Mass/Vol] 8.1 mg/dL Low 8.4-10.2 [facility] Comment on above: Performed By: #### A CBC, BMPF #### Testing performed at [address] [address] Chloride [Moles/Vol] 108 mmol/L High 98-107 [facility] Comment on above: Performed By: #### A CBC, BMPF #### Testing performed at [address] [address] CO2 [Moles/Vol] 23 mmol/L Normal 22-30 [facility] Comment on above: Performed By: #### A CBC, BMPF #### Testing performed at [address] [address] Creatinine [Mass/Vol] 0.56 mg/dL Normal 0.52-1.04 [facility] Comment on above: Performed By: #### A CBC, BMPF #### Testing performed at [address] [address] EST. GFR, 138 ml/min/1.73sq.m [facility] Comment on above: Performed By: #### A CBC, BMPF #### Testing performed at [address] [address] EST. GFR,Non 114 ml/min/1.73sq.m [facility] Comment on above: Performed By: #### A CBC, BMPF #### Testing performed at [address] [address] GFR Information Average GFR for 60-6 9 years old = 85. 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 Kidney failure, GFR = <15. The GFR estimate is not adjusted for extreme body surface area or acute process, nor has it been validated for women or ethnic groups other than and . Performed By: #### A CBC, BMPF #### Testing performed at [address] [address] Glucose [Mass/Vol] 131 mg/dL High 70-100 [facility] Comment on above: Result Comment: NORMAL <100 mg/dL PREDIABETES 101-126 mg/dL DIABETES 126 mg/dL or higher Performed By: #### A CBC, BMPF #### Testing performed at [address] [address] Potassium [Moles/Vol] 3.8 mmol/L Normal 3.5-5.1 [facility] Comment on above: Performed By: #### A CBC, BMPF #### Testing performed at [address] [address] Sodium [Moles/Vol] 137 mmol/L Normal 136-145 [facility] Comment on above: Performed By: #### A CBC, BMPF #### Testing performed at [address] [address] Urea nitrogen [Mass/Vol] 16 mg/dL Normal 7-20 [facility] Comment on above: Performed By: #### A CBC, BMPF #### Testing performed at [address] [address] CBCon 04-27-2023 ABSOLUTE BAS 0.0 10*3/uL Normal 0.0-0.2 [facility] Comment on above: Performed By: #### A CBC, BMPF #### Testing performed at [address] [address] ABSOLUTE EOS 0.0 10*3/uL Normal 0.0-0.7 [facility] Comment on above: Performed By: #### A CBC, BMPF #### Testing performed at [address] [place] [address] ABSOLUTE NEUTROPHIL COUNT 4.7 10*3/uL Normal 1.4-6.5 [facility] Comment on above: Performed By: #### A CBC, BMPF #### Testing performed at [address] [place] [address] Basophils/100 WBC (Bld) 0.1 % Normal 0.0-2.0 [facility] Comment on above: Performed By: #### A CBC, BMPF #### Testing performed at [address] [place] [address] DTYPE AUTO DIFF Normal [facility] Comment on above: Performed By: #### A CBC, BMPF #### Testing performed at [address] [address] Eosinophils/100 WBC (Bld) 0.0 % Normal 0.0-11.0 [facility] Comment on above: Performed By: #### A CBC, BMPF #### Testing performed at [address] [place] [address] Lymphocytes (Bld) [#/Vol] 0.4 10*3/uL Low 1.2-3.4 [facility] Comment on above: Performed By: #### A CBC, BMPF #### Testing performed at [address] [place] [address] Lymphocytes/100 WBC (Bld) 7.8 % Low 20.0-55.0 [facility] Comment on above: Performed By: #### A CBC, BMPF #### Testing performed at [address] [place] [address] Monocytes (Bld) [#/Vol] 0.5 10*3/uL Normal 0.0-0.7 [facility] Comment on above: Performed By: #### A CBC, BMPF #### Testing performed at [address] [place] [address] Monocytes/100 WBC (Bld) 8.4 % Normal 0.0-10.0 [facility] Comment on above: Performed By: #### A CBC, BMPF #### Testing performed at [address] [address] Neutrophils/100 WBC (Bld) 83.7 % High 37.0-75.0 [facility] Comment on above: Performed By: #### A CBC, BMPF #### Testing performed at [address] [address] Erythrocyte distribution width (RBC) [Ratio] 14.0 % Normal 11.5-14.5 [facility] Comment on above: Performed By: #### A CBC, BMPF #### Testing performed at [address] [address] Hematocrit (Bld) [Volume fraction] 28.8 % Low 36.0-48.0 [facility] Comment on above: Performed By: #### A CBC, BMPF #### Testing performed at [address] [address] Hemoglobin (Bld) [Mass/Vol] 9.7 g/dL Low 12.0-16.0 [facility] Comment on above: Performed By: #### A CBC, BMPF #### Testing performed at [address] [address] MCH (RBC) [Entitic mass] 34.0 pg Normal 26.0-35.0 [facility] Comment on above: Performed By: #### A CBC, BMPF #### Testing performed at [address] [address] MCHC (RBC) [Mass/Vol] 33.6 g/dL Normal 27.0-37.0 [facility] Comment on above: Performed By: #### A CBC, BMPF #### Testing performed at [address] [address] MCV (RBC) [Entitic vol] 101.4 fL High 80.0-100.0 [facility] Comment on above: Performed By: #### A CBC, BMPF #### Testing performed at [address] [address] Platelet mean volume (Bld) [Entitic vol] 7.2 fL Low 7.4-11.0 [facility] Comment on above: Performed By: #### A CBC, BMPF #### Testing performed at [address] [address] Platelets (Bld) [#/Vol] 202 10*3/uL Normal 130-400 [facility] Comment on above: Performed By: #### A CBC, BMPF #### Testing performed at [address] [address] RBC (Bld) [#/Vol] 2.84 10*6/uL Low 4.0-5.4 [facility] Comment on above: Performed By: #### A CBC, BMPF #### Testing performed at [address] [address] WBC (Bld) [#/Vol] 5.6 10*3/uL Normal 3.6-11.0 [facility] Comment on above: Performed By: #### A CBC, BMPF #### Testing performed at [address] [address] XR KNEE RIGHT 2 VIEWSon 04-08 XR KNEE RIGHT 2 VIEWS EXAM: XR KNEE RIGHT 2 VIEWS INDICATION: s/p TKA COMPARISON: 03/18/2023 TECHNIQUE: Radiographs as described above FINDINGS/IMPRESSION: Status post total knee arthroplasty without evidence of complication. Expected perioperative soft tissue changes. Normal [facility] CBCon 04-14-2023 ABSOLUTE BAS 0.0 10*3/uL Normal 0.0-0.2 [facility] Comment on above: Performed By: #### C MPF, ACBC, PT #### Testing performed at [address] [address] ABSOLUTE EOS 0.0 10*3/uL Normal 0.0-0.7 [facility] Comment on above: Performed By: #### C MPF, ACBC, PT #### Testing performed at [address] [address] ABSOLUTE NEUTROPHIL COUNT 2.6 10*3/uL Normal 1.4-6.5 [facility] Comment on above: Performed By: #### C MPF, ACBC, PT #### Testing performed at [address] [address] Basophils/100 WBC (Bld) 0.4 % Normal 0.0-2.0 [facility] Comment on above: Performed By: #### C MPF, ACBC, PT #### Testing performed at [address] [address] DTYPE AUTO DIFF Normal [facility] Comment on above: Performed By: #### C MPF, ACBC, PT #### Testing performed at [address] [address] Eosinophils/100 WBC (Bld) 1.1 % Normal 0.0-11.0 [facility] Comment on above: Performed By: #### C MPF, ACBC, PT #### Testing performed at [address] [address] Lymphocytes (Bld) [#/Vol] 0.5 10*3/uL Low 1.2-3.4 [facility] Comment on above: Performed By: #### C MPF, ACBC, PT #### Testing performed at [address] [address] Lymphocytes/100 WBC (Bld) 13.6 % Low 20.0-55.0 [facility] Comment on above: Performed By: #### C MPF, ACBC, PT #### Testing performed at [address] [address] Monocytes (Bld) [#/Vol] 0.3 10*3/uL Normal 0.0-0.7 [facility] Comment on above: Performed By: #### C MPF, ACBC, PT #### Testing performed at [address] [address] Monocytes/100 WBC (Bld) 9.4 % Normal 0.0-10.0 [facility] Comment on above: Performed By: #### C MPF, ACBC, PT #### Testing performed at [address] [address] Neutrophils/100 WBC (Bld) 75.5 % High 37.0-75.0 [facility] Comment on above: Performed By: #### C MPF, ACBC, PT #### Testing performed at [address] [address] Erythrocyte distribution width (RBC) [Ratio] 14.2 % Normal 11.5-14.5 [facility] Comment on above: Performed By: #### C MPF, ACBC, PT #### Testing performed at [address] [address] Hematocrit (Bld) [Volume fraction] 36.5 % Normal 36.0-48.0 [facility] Comment on above: Performed By: #### C MPF, ACBC, PT #### Testing performed at [address] [address] Hemoglobin (Bld) [Mass/Vol] 11.9 g/dL Low 12.0-16.0 [facility] Comment on above: Performed By: #### C MPF, ACBC, PT #### Testing performed at [address] [address] MCH (RBC) [Entitic mass] 33.4 pg Normal 26.0-35.0 [facility] Comment on above: Performed By: #### C MPF, ACBC, PT #### Testing performed at [address] [address] MCHC (RBC) [Mass/Vol] 32.7 g/dL Normal 27.0-37.0 [facility] Comment on above: Performed By: #### C MPF, ACBC, PT #### Testing performed at [address] [address] MCV (RBC) [Entitic vol] 102.3 fL High 80.0-100.0 [facility] Comment on above: Performed By: #### C MPF, ACBC, PT #### Testing performed at [address] [address] Platelet mean volume (Bld) [Entitic vol] 7.7 fL Normal 7.4-11.0 [facility] Comment on above: Performed By: #### C MPF, ACBC, PT #### Testing performed at [address] [address] Platelets (Bld) [#/Vol] 179 10*3/uL Normal 130-400 [facility] Comment on above: Performed By: #### C MPF, ACBC, PT #### Testing performed at [address] [address] RBC (Bld) [#/Vol] 3.57 10*6/uL Low 4.0-5.4 [facility] Comment on above: Performed By: #### C MPF, ACBC, PT #### Testing performed at [address] [address] WBC (Bld) [#/Vol] 3.4 10*3/uL Low 3.6-11.0 [facility] Comment on above: Performed By: #### C MPF, ACBC, PT #### Testing performed at [address] [address] CMP FASTINGon 04-14-2023 A:G RATIO 1.6 RATIO Normal 1.3-2.2 [facility] Comment on above: Performed By: #### C MPF, ACBC, PT #### Testing performed at [address] [address] ALBUMIN 3.9 G/dl Normal 3.5-5.0 [facility] Comment on above: Performed By: #### C MPF, ACBC, PT #### Testing performed at [address] [address] ALP [Catalytic activity/Vol] 49 U/L Normal 38-126 [facility] Comment on above: Performed By: #### C MPF, ACBC, PT #### Testing performed at [address] [address] ALT [Catalytic activity/Vol] 23 U/L Normal 14-54 [facility] Comment on above: Performed By: #### C MPF, ACBC, PT #### Testing performed at [address] [address] AST [Catalytic activity/Vol] 31 U/L Normal 15-41 [facility] Comment on above: Performed By: #### C MPF, ACBC, PT #### Testing performed at [address] [address] Bilirubin [Mass/Vol] 0.8 mg/dL Normal 0.2-1.2 [facility] Comment on above: Performed By: #### C MPF, ACBC, PT #### Testing performed at [address] [address] Calcium [Mass/Vol] 9.6 mg/dL Normal 8.4-10.2 [facility] Comment on above: Performed By: #### C MPF, ACBC, PT #### Testing performed at [address] [address] Chloride [Moles/Vol] 102 mmol/L Normal 98-107 [facility] Comment on above: Performed By: #### C MPF, ACBC, PT #### Testing performed at [address] [address] CO2 [Moles/Vol] 27 mmol/L Normal 22-30 [facility] Comment on above: Performed By: #### C MPF, ACBC, PT #### Testing performed at [address] [address] Creatinine [Mass/Vol] 0.55 mg/dL Normal 0.52-1.04 [facility] Comment on above: Performed By: #### C MPF, ACBC, PT #### Testing performed at [address] [address] EST. GFR, 141 ml/min/1.73sq.m [facility] Comment on above: Performed By: #### C MPF, ACBC, PT #### Testing performed at [address] [address] EST. GFR,Non 116 ml/min/1.73sq.m [facility] Comment on above: Performed By: #### C MPF, ACBC, PT #### Testing performed at [address] [address] GFR Information Average GFR for 60-6 9 years old = 85. 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 Kidney failure, GFR = <15. The GFR estimate is not adjusted for extreme body surface area or acute process, nor has it been validated for women or ethnic groups other than and . Performed By: #### C MPF, ACBC, PT #### Testing performed at [address] [address] Glucose [Mass/Vol] 91 mg/dL Normal 70-100 [facility] Comment on above: Result Comment: NORMAL <100 mg/dL PREDIABETES 101-126 mg/dL DIABETES 126 mg/dL or higher Performed By: #### C MPF, ACBC, PT #### Testing performed at [address] [address] Potassium [Moles/Vol] 4.0 mmol/L Normal 3.5-5.1 [facility] Comment on above: Performed By: #### C MPF, ACBC, PT #### Testing performed at [address] [address] Protein [Mass/Vol] 6.3 g/dL Normal 6.3-8.2 [facility] Comment on above: Performed By: #### C MPF, ACBC, PT #### Testing performed at [address] [address] Sodium [Moles/Vol] 140 mmol/L Normal 136-145 [facility] Comment on above: Performed By: #### C MPF, ACBC, PT #### Testing performed at [address] [address] Urea nitrogen [Mass/Vol] 17 mg/dL Normal 7-20 [facility] Comment on above: Performed By: #### C MPF, ACBC, PT #### Testing performed at [address] [address] HEMOGLOBIN A1Con 04-14-2023 Glucose [Mass/Vol] 111 mg/dL Normal [facility] Comment on above: Performed By: #### H A1CT #### Testing performed at [address] [address] HbA1c (Bld) [Mass fraction] 5.5 % Normal <6 [facility] Comment on above: Result Comment: NORMAL <5.7% PREDIABETES 5.7-6.4% DIABETES 6.5% OR HIGHER Performed By: #### H A1CT #### Testing performed at [address] [address] MRSA SCREENon 04-14-2023 MRSA DNA NOHELIA+probe Ql (Unsp spec) Negative Normal NEGATIVE [facility] Comment on above: Performed By: #### C MPF, ACBC, PT #### Testing performed at [address] [address] STAPH AUREUS SCREEN Negative Normal NEGATIVE [facility] Comment on above: Result Comment: TEST ING PERFORMED BY PCR Performed By: #### C MPF, ACBC, PT #### Testing performed at [address] [address] PROTIMEon 04-14-2023 INR Coag (PPP) [Relative time] 0.94 {INR} Normal 0.85-1.10 [facility] Comment on above: Result Comment: 2.0-3.0 THERAPEUTIC RANGE 2.5-3.5 MECHANICAL VALVE RANGE Performed By: #### C MPF, ACBC, PT #### Testing performed at [address] [address] PT Coag (PPP) [Time] 12.7 s Normal 11.8-14.4 [facility] Comment on above: Performed By: #### C MPF, ACBC, PT #### Testing performed at [address] [address] TYPE AND SCREEN CROSSMATCH C ONVERTIBLEon 04-14-2023 TYPE AND SCREEN CROSSMATCH CONVERTIBLE WORKUP EXPIRES 04/29/2023,2359 ABO/RH(D) O POSITIVE ANTIBODY SCREEN NEGATIVE ARM BAND NUMBER [id number] Normal [facility] Comment on above: Performed By: #### T SCC #### Testing performed at [address] [address] URINE MACROSCOPICon 04-14-20 Bilirubin Ql (U) Negative Normal NEGATIVE [facility] Comment on above: Performed By: #### C MPF, ACBC, PT #### Testing performed at [address] [address] Clarity (U) CLEAR Normal CLEAR [facility] Comment on above: Performed By: #### C MPF, ACBC, PT #### Testing performed at [address] [address] Color (U) YELLOW Normal YELLOW [facility] Comment on above: Performed By: #### C MPF, ACBC, PT #### Testing performed at [address] [address] Glucose Ql (U) Negative Normal NEGATIVE [facility] Comment on above: Performed By: #### C MPF, ACBC, PT #### Testing performed at [address] [address] pH (U) 7.0 [pH] Normal 5.0-7.0 [facility] Comment on above: Performed By: #### C MPF, ACBC, PT #### Testing performed at [address] [address] Protein (U) [Mass/Vol] 30 mg/dL Abnormal NEGATIVE [facility] Comment on above: Performed By: #### C MPF, ACBC, PT #### Testing performed at [address] [address] URINE HEMOGLOBIN Negative Normal NEGATIVE [facility] Comment on above: Performed By: #### C MPF, ACBC, PT #### Testing performed at [address] [address] URINE KETONE 15 mg/dl Abnormal NEGATIVE [facility] Comment on above: Performed By: #### C MPF, ACBC, PT #### Testing performed at [address] [address] URINE LEUKOTEST Negative Normal NEGATIVE [facility] Comment on above: Performed By: #### C MPF, ACBC, PT #### Testing performed at [address] [address] URINE NITRATES Negative Normal NEGATIVE [facility] Comment on above: Performed By: #### C MPF, ACBC, PT #### Testing performed at [address] [address] URINE SPEC GRAVITY 1.025 Normal 1.010-1.025 [facility] Comment on above: Performed By: #### C MPF, ACBC, PT #### Testing performed at [address] [address] Urobilinogen Qn (U) 0.2 {Flaquita'U}/dL Normal 0.2-1.0 [facility] Comment on above: Performed By: #### C MPF, ACBC, PT #### Testing performed at [address] [address] URINE MICROSCOPICon 04-14-20 23 BACTERIA TRACE Abnormal NEGATIVE [facility] Comment on above: Performed By: #### C MPF, ACBC, PT #### Testing performed at [address] [address] CASTS NONE Normal NONE [facility] Comment on above: Performed By: #### C MPF, ACBC, PT #### Testing performed at [address] [address] [address] [facility] Comment on above: Performed By: #### C MPF, ACBC, PT #### Testing performed at [address] [address] Epithelial cells LM Ql (Urine sed) 1 TO 5 Normal [facility] Comment on above: Performed By: #### C MPF, ACBC, PT #### Testing performed at [address] [address] Mucus Ql (Urine sed) 1+ Abnormal NEGATIVE [facility] Comment on above: Performed By: #### C MPF, ACBC, PT #### Testing performed at [address] [place] [address] URINE COMMENT CULTURE CRITERIA NOT MET, NO CULTURE PERFORMED. Normal [facility] Comment on above: Performed By: #### C MPF, ACBC, PT #### Testing performed at [address] [place] [address] URINE RBC'S Negative Normal NEGATIVE [facility] Comment on above: Performed By: #### C MPF, ACBC, PT #### Testing performed at [address] [address] URINE WBC'S 1 TO 5 Normal NEGATIVE [facility] Comment on above: Performed By: #### C MPF, ACBC, PT #### Testing performed at [address] [address] C3 and C4 COMPLEMENTon 02-09 Complement C3, Serum 140 mg/dL Normal 82-167 [facility] Comment on above: Performed By: #### L IVER, LIPID, TSH, FT3, T4 #### [facility] [address] [address] [address] Frank [place] Complement C4, Serum 36 mg/dL Normal 12-38 [facility] Comment on above: Performed By: #### L IVER, LIPID, TSH, FT3, T4 #### [facility] [address] [address] [address] Frank [place] COMPLEMENT TOTAL (CH50)on Complement, Total (CH50) >60 Normal >41 [facility] Comment on above: Result Comment: Age Male Female 1 - 30 days Not Estab. Not Estab. 31 days - 6 months >32 >20 7 months - 17 years >39 >39 >17 years >41 >41 NOTE: The adult ( >17 years ) reference interval range is used to flag abnormals on this report. If the patient is 17 years old or younger, use the table above to determine out of range values. Performed By: #### C H50T #### [facility] [address] [place] [address] Dr. Frank [place] CBC AUTO DIFFon 02-08-2023 BASO # 0.0 103/ul Normal 0.0-0.1 [facility] Comment on above: Performed By: #### C BC #### [facility] [address] [place] [address] Dr. Frank [place] Basophils/100 WBC (Bld) 0.3 % Normal 0.2-2.0 [facility] Comment on above: Performed By: #### C BC #### [facility] [address] [address] [address] Frank Hills EO # 0.1 103/ul Normal 0.0-0.7 [facility] Comment on above: Performed By: #### C BC #### [facility] [address] [place] [address] Dr. Frank Hills Eosinophils/100 WBC (Bld) 1.6 % Normal 0.9-7.0 [facility] Comment on above: Performed By: #### C BC #### [facility] [address] [place] [address] Dr. Frank [place] Erythrocyte distribution width (RBC) [Ratio] 13.6 % Normal 11.0-15.0 [facility] Comment on above: Performed By: #### C BC #### [facility] [address] [place] [address] Dr. Frank Hills Hematocrit (Bld) [Volume fraction] 36.4 % Normal 36.0-48.0 [facility] Comment on above: Performed By: #### C BC #### [facility] [address] [place] [address] Dr. Frank [place] Hemoglobin (Bld) [Mass/Vol] 11.8 g/dL Critically low 12.0-16.0 [facility] Comment on above: Performed By: #### C BC #### [facility] [address] [place] [address] Dr. Frank Hills IG # 0.01 10e3/ul Normal 0.00-0.03 [facility] Comment on above: Performed By: #### C BC #### [facility] [address] [place] [address] Dr. Frank Hills IG % 0.3 % Normal 0.0-0.5 [facility] Comment on above: Performed By: #### C BC #### [facility] [address] [place] [address] Dr. Frank Hills LYMPH # 0.6 103/ul Critically low 1.2-3.8 [facility] Comment on above: Performed By: #### C BC #### [facility] [address] [place] [address] Dr. Frank Hills Lymphocytes/100 WBC (Bld) 15.3 % Critically low 20.5-60.0 [facility] Comment on above: Performed By: #### C BC #### [facility] [address] [place] [address] Dr. Frank Hills MANUAL DIFF REQ NO Normal [facility] Comment on above: Performed By: #### C BC #### [facility] [address] [address] [address] Frank Hills MCH (RBC) [Entitic mass] 33.2 pg Normal 26.7-34.0 [facility] Comment on above: Performed By: #### C BC #### [facility] [address] [place] [address] Dr. Frank Hills MCHC (RBC) [Mass/Vol] 32.4 g/dL Normal 29.9-35.2 [facility] Comment on above: Performed By: #### C BC #### [facility] [address] [place] [address] Dr. Frank Hills MCV (RBC) [Entitic vol] 102.5 fL Critically high 81.0-99.0 [facility] Comment on above: Performed By: #### C BC #### [facility] [address] [place] [address] Dr. Frank Hills MONO # 0.5 103/ul Normal 0.3-0.8 [facility] Comment on above: Performed By: #### C BC #### [facility] [address] [place] [address] Dr. Frank Hills Monocytes/100 WBC (Bld) 12.5 % Critically high 1.7-12.0 [facility] Comment on above: Performed By: #### C BC #### [facility] [address] [place] [address] Dr. Frank Hills NEUT # 2.6 103/ul Normal 1.4-6.5 [facility] Comment on above: Performed By: #### C BC #### [facility] [address] [place] [address] Dr. Frank Hills Neutrophils/100 WBC (Bld) 70.0 % Normal 43.0-75.0 [facility] Comment on above: Performed By: #### C BC #### [facility] [address] [place] [address] Dr. Frank Hills Platelet mean volume (Bld) [Entitic vol] 9.0 fL Critically low 9.5-13.5 [facility] Comment on above: Performed By: #### C BC #### [facility] [address] [place] [address] Dr. Frank Hills PLT 192 103/ul Normal 150-450 [facility] Comment on above: Performed By: #### C BC #### [facility] [address] [place] [address] Dr. Frank Hills RBC 3.55 106/ul Critically low 4.20-5.40 [facility] Comment on above: Performed By: #### C BC #### [facility] [address] [place] [address] Dr. Frank Hills WBC 3.7 103/ul Critically low 4.0-11.0 [facility] Comment on above: Performed By: #### C BC #### [facility] [address] [place] [address] Dr. Frank Hills PROF 14(COMP METB)on 023 Albumin [Mass/Vol] 3.7 g/dL Normal 3.4-5.0 [facility] Comment on above: Performed By: #### L IVER, LIPID, TSH, FT3, T4 #### [facility] [address] [place] [address] Dr. Frank Hills Albumin/Globulin [Mass ratio] 1.2 {ratio} Normal [facility] Comment on above: Performed By: #### L IVER, LIPID, TSH, FT3, T4 #### [facility] [address] [place] [address] Dr. Frank Hills ALP [Catalytic activity/Vol] 66 U/L Normal 46-116 [facility] Comment on above: Performed By: #### L IVER, LIPID, TSH, FT3, T4 #### [facility] [address] [place] [address] Dr. Frank Hills ALT [Catalytic activity/Vol] 29 U/L Normal 14-59 [facility] Comment on above: Performed By: #### L IVER, LIPID, TSH, FT3, T4 #### [facility] [address] [place] [address] Dr. Frank Hills Anion gap [Moles/Vol] 11.6 mmol/L Normal [facility] Comment on above: Performed By: #### L IVER, LIPID, TSH, FT3, T4 #### [facility] [address] [address] [address] Frank Hills AST [Catalytic activity/Vol] 27 U/L Normal 15-37 [facility] Comment on above: Performed By: #### L IVER, LIPID, TSH, FT3, T4 #### [facility] [address] [place] [address] Dr. Frank Hills Bilirubin [Mass/Vol] 0.7 mg/dL Normal 0.2-1.0 [facility] Comment on above: Performed By: #### L IVER, LIPID, TSH, FT3, T4 #### [facility] [address] [place] [address] Dr. Frank Hills Calcium [Mass/Vol] 9.1 mg/dL Normal 8.5-10.1 [facility] Comment on above: Performed By: #### L IVER, LIPID, TSH, FT3, T4 #### [facility] [address] [place] [address] Dr. Frank Hills Chloride [Moles/Vol] 105 mmol/L Normal 98-107 [facility] Comment on above: Performed By: #### L IVER, LIPID, TSH, FT3, T4 #### [facility] [address] [place] [address] Dr. Frank Hills CO2 [Moles/Vol] 29.5 mmol/L Normal 21.0-32.0 [facility] Comment on above: Performed By: #### L IVER, LIPID, TSH, FT3, T4 #### [facility] [address] [address] [address] Frank Hills Creatinine [Mass/Vol] 0.57 mg/dL Normal 0.55-1.02 [facility] Comment on above: Performed By: #### L IVER, LIPID, TSH, FT3, T4 #### [facility] [address] [place] [address] Dr. Frank Hills EGFR-AF [facility] >60 Normal >=60 [facility] Comment on above: Performed By: #### L IVER, LIPID, TSH, FT3, T4 #### [facility] [address] [address] [address] Frank Hills EGFR-NON AF [facility] >60 Normal >=60 [facility] Comment on above: Performed By: #### L IVER, LIPID, TSH, FT3, T4 #### [facility] [address] [address] [address] Frank Hills Globulin (S) [Mass/Vol] 3.1 g/dL Normal [facility] Comment on above: Performed By: #### L IVER, LIPID, TSH, FT3, T4 #### [facility] [address] [place] [address] Dr. Frank Hills Glucose [Mass/Vol] 95 mg/dL Normal 74-106 [facility] Comment on above: Performed By: #### L IVER, LIPID, TSH, FT3, T4 #### [facility] [address] [place] [address] Dr. Frank Hills Potassium [Moles/Vol] 5.1 mmol/L Normal 3.5-5.1 [facility] Comment on above: Performed By: #### L IVER, LIPID, TSH, FT3, T4 #### [facility] [address] [place] [address] Dr. Frank Hills Protein [Mass/Vol] 6.8 g/dL Normal 6.4-8.2 [facility] Comment on above: Performed By: #### L IVER, LIPID, TSH, FT3, T4 #### [facility] [address] [address] [address] Frank Hills Sodium [Moles/Vol] 141 mmol/L Normal 136-145 [facility] Comment on above: Performed By: #### L IVER, LIPID, TSH, FT3, T4 #### [facility] [address] [address] [address] Frank Hills Urea nitrogen [Mass/Vol] 13.0 mg/dL Normal 7.0-18.0 [facility] Comment on above: Performed By: #### L IVER, LIPID, TSH, FT3, T4 #### [facility] [address] [place] [address] Dr. rFank Hills Urea nitrogen/Creatinine [Mass ratio] 22.8 mg/mg Normal [facility] Comment on above: Performed By: #### L IVER, LIPID, TSH, FT3, T4 #### [facility] [address] [place] [address] Dr. Frank Hills SED RATE WESTERGREN 2022 SED RATE 9 mm/hr Normal <=30 [facility] Comment on above: Performed By: #### L IVER, LIPID, TSH, FT3, T4 #### [facility] [address] [place] [address] Dr. Frank Hills UA RANDOM W/MICROSCOPICon BACTERIA NONE SEEN Normal NONE SEEN [facility] Comment on above: Performed By: #### L IVER, LIPID, TSH, FT3, T4 #### [facility] [address] [place] [address] Dr. Frank Hills Bilirubin Ql (U) Negative Normal NEGATIVE [facility] Comment on above: Performed By: #### L IVER, LIPID, TSH, FT3, T4 #### [facility] [address] [place] [address] Dr. Frank Hills CAST NONE SEEN Normal NONE SEEN [facility] Comment on above: Performed By: #### L IVER, LIPID, TSH, FT3, T4 #### [facility] [address] [place] [address] Dr. Frank Hills Clarity (U) CLEAR Normal CLEAR [facility] Comment on above: Performed By: #### L IVER, LIPID, TSH, FT3, T4 #### [facility] [address] [place] [address] Dr. Frank Hills Color (U) LT. YELLOW Normal YELLOW [facility] Comment on above: Performed By: #### L IVER, LIPID, TSH, FT3, T4 #### [facility] [address] [place], [place] [id number] Dr. Frank Hills Crystals LM Nom (Urine sed) NONE SEEN Normal NONE SEEN [facility] Comment on above: Performed By: #### L IVER, LIPID, TSH, FT3, T4 #### [facility] [address] [place] [address] Dr. Frank Hills Epithelial cells LM Ql (Urine sed) RARE Normal NONE SEEN /RARE [facility] Comment on above: Performed By: #### L IVER, LIPID, TSH, FT3, T4 #### [facility] [address] [place] [address] Dr. Frank Hills Glucose Ql (U) Negative Normal NEGATIVE [facility] Comment on above: Performed By: #### L IVER, LIPID, TSH, FT3, T4 #### [facility] [address] [place] [address] Dr. Frank Hills Hemoglobin Ql (U) Negative Normal NEGATIVE [facility] Comment on above: Performed By: #### L IVER, LIPID, TSH, FT3, T4 #### [facility] [address] [place] [address] Dr. Frank Hills Ketones Ql (U) Negative Normal NEGATIVE [facility] Comment on above: Performed By: #### L IVER, LIPID, TSH, FT3, T4 #### [facility] [address] [place] [address] Dr. Frank Hills LEUKOCYTES Negative Normal NEGATIVE [facility] Comment on above: Performed By: #### L IVER, LIPID, TSH, FT3, T4 #### [facility] [address] [place] [address] Dr. Frank Hills MUCOUS NONE SEEN Normal NONE SEEN [facility] Comment on above: Performed By: #### L IVER, LIPID, TSH, FT3, T4 #### [facility] [address] [place] [address] Dr. Frank Hills Nitrite Ql (U) Negative Normal NEGATIVE [facility] Comment on above: Performed By: #### L IVER, LIPID, TSH, FT3, T4 #### [facility] [address] [place] [address] Dr. Frank Hills pH (U) 6.5 [pH] Normal 5-9 [facility] Comment on above: Performed By: #### L IVER, LIPID, TSH, FT3, T4 #### [facility] [address] [place] [address] Dr. Frank Hills RBC NONE SEEN Abnormal 0-2 [facility] Comment on above: Performed By: #### L IVER, LIPID, TSH, FT3, T4 #### [facility] [address] [address] [address] Frank Hills SPEC GRAVITY 1.020 Normal 1.005-<=1.025 [facility] Comment on above: Performed By: #### L IVER, LIPID, TSH, FT3, T4 #### [facility] [address] [place] [address] Dr. Frank Hills UA PROTEIN Negative Normal NEGATIVE/ TRACE [facility] Comment on above: Performed By: #### L IVER, LIPID, TSH, FT3, T4 #### [facility] [address] [place] [address] Dr. Frank Hills Urobilinogen Qn (U) 0.2 {Flaquita'U}/dL Normal 0.2 - 1. 0 [facility] Comment on above: Performed By: #### L IVER, LIPID, TSH, FT3, T4 #### [facility] [address] [place] [address] Dr. Frank Hills WBC NONE SEEN Normal NONE SEEN [facility] Comment on above: Performed By: #### L IVER, LIPID, TSH, FT3, T4 #### [facility] [address] [place] [address] Dr. Frank Hills C3 and C4 COMPLEMENTon 11-04 Complement C3, Serum 132 mg/dL Normal 82-167 [facility] Comment on above: Performed By: #### L IVER, LIPID, TSH, FT3, T4 #### [facility] [address] [place] [address] Dr. Frank Hills Complement C4, Serum 33 mg/dL Normal 12-38 [facility] Comment on above: Performed By: #### L IVER, LIPID, TSH, FT3, T4 #### [facility] [address] [address] [address] Frank Hills COMPLEMENT TOTAL (CH50)on Complement, Total (CH50) >60 Normal >41 [facility] Comment on above: Result Comment: Age Male Female 1 - 30 days Not Estab. Not Estab. 31 days - 6 months >32 >20 7 months - 17 years >39 >39 >17 years >41 >41 NOTE: The adult ( >17 years ) reference interval range is used to flag abnormals on this report. If the patient is 17 years old or younger, use the table above to determine out of range values. Performed By: #### L IVER, LIPID, TSH, FT3, T4 #### [facility] [address] [place] [address] Dr. Frank Hills CBC AUTO DIFFon 11-03-2022 BASO # 0.0 103/ul Normal 0.0-0.1 [facility] Comment on above: Performed By: #### L IVER, LIPID, TSH, FT3, T4 #### [facility] [address] [place] [address] Dr. Frank Hills Basophils/100 WBC (Bld) 1.0 % Normal 0.2-2.0 [facility] Comment on above: Performed By: #### L IVER, LIPID, TSH, FT3, T4 #### [facility] [address] [address] [address] Frank Hills EO # 0.1 103/ul Normal 0.0-0.7 [facility] Comment on above: Performed By: #### L IVER, LIPID, TSH, FT3, T4 #### [facility] [address] [address] [address] Frank Hills Eosinophils/100 WBC (Bld) 1.8 % Normal 0.9-7.0 [facility] Comment on above: Performed By: #### L IVER, LIPID, TSH, FT3, T4 #### [facility] [address] [place] [address] Dr. Frank Hills Erythrocyte distribution width (RBC) [Ratio] 13.8 % Normal 11.0-15.0 [facility] Comment on above: Performed By: #### L IVER, LIPID, TSH, FT3, T4 #### [facility] [address] [place] [address] Dr. Frank Hills Hematocrit (Bld) [Volume fraction] 36.3 % Normal 36.0-48.0 [facility] Comment on above: Performed By: #### L IVER, LIPID, TSH, FT3, T4 #### [facility] [address] [place] [address] Dr. Frank Hills Hemoglobin (Bld) [Mass/Vol] 11.9 g/dL Critically low 12.0-16.0 [facility] Comment on above: Performed By: #### L IVER, LIPID, TSH, FT3, T4 #### [facility] [address] [place] [address] Dr. Frank Hills IG # 0.02 10e3/ul Normal 0.00-0.03 [facility] Comment on above: Performed By: #### L IVER, LIPID, TSH, FT3, T4 #### [facility] [address] [place] [address] Dr. Frank Hills IG % 0.5 % Normal 0.0-0.5 [facility] Comment on above: Performed By: #### L IVER, LIPID, TSH, FT3, T4 #### [facility] [address] [place] [address] Dr. Frank Hills LYMPH # 0.7 103/ul Critically low 1.2-3.8 [facility] Comment on above: Performed By: #### L IVER, LIPID, TSH, FT3, T4 #### [facility] [address] [place] [address] Dr. Frank Hills Lymphocytes/100 WBC (Bld) 18.0 % Critically low 20.5-60.0 [facility] Comment on above: Performed By: #### L IVER, LIPID, TSH, FT3, T4 #### [facility] [address] [place] [address] Dr. Frank Hills MANUAL DIFF REQ NO Normal [facility] Comment on above: Performed By: #### L IVER, LIPID, TSH, FT3, T4 #### [facility] [address] [place] [address] Dr. Frank Hills MCH (RBC) [Entitic mass] 34.2 pg Critically high 26.7-34.0 [facility] Comment on above: Performed By: #### L IVER, LIPID, TSH, FT3, T4 #### [facility] [address] [place] [address] Dr. Frank Hills MCHC (RBC) [Mass/Vol] 32.8 g/dL Normal 29.9-35.2 [facility] Comment on above: Performed By: #### L IVER, LIPID, TSH, FT3, T4 #### [facility] [address] [place] [address] Dr. Frank Hills MCV (RBC) [Entitic vol] 104.3 fL Critically high 81.0-99.0 [facility] Comment on above: Performed By: #### L IVER, LIPID, TSH, FT3, T4 #### [facility] [address] [place] [address] Dr. Frank Hills MONO # 0.4 103/ul Normal 0.3-0.8 [facility] Comment on above: Performed By: #### L IVER, LIPID, TSH, FT3, T4 #### [facility] [address] [place] [address] Dr. Frank Hills Monocytes/100 WBC (Bld) 10.0 % Normal 1.7-12.0 [facility] Comment on above: Performed By: #### L IVER, LIPID, TSH, FT3, T4 #### [facility] [address] [place] [address] Dr. Frank Hills NEUT # 2.7 103/ul Normal 1.4-6.5 [facility] Comment on above: Performed By: #### L IVER, LIPID, TSH, FT3, T4 #### [facility] [address] [place], [place] [id number] Dr. Frank Hills Neutrophils/100 WBC (Bld) 68.7 % Normal 43.0-75.0 [facility] Comment on above: Performed By: #### L IVER, LIPID, TSH, FT3, T4 #### [facility] [address] [place] [address] Dr. Frank Hills Platelet mean volume (Bld) [Entitic vol] 9.4 fL Critically low 9.5-13.5 [facility] Comment on above: Performed By: #### L IVER, LIPID, TSH, FT3, T4 #### [facility] [address] [place] [address] Dr. Frank Hills PLT 187 103/ul Normal 150-450 [facility] Comment on above: Performed By: #### L IVER, LIPID, TSH, FT3, T4 #### [facility] [address] [place] [address] Dr. Frank Hills RBC 3.48 106/ul Critically low 4.20-5.40 [facility] Comment on above: Performed By: #### L IVER, LIPID, TSH, FT3, T4 #### [facility] [address] [place] [address] Dr. Frank Hills WBC 3.9 103/ul Critically low 4.0-11.0 [facility] Comment on above: Performed By: #### L IVER, LIPID, TSH, FT3, T4 #### [facility] [address] [place] [address] Dr. Frank Hills PROF 14(COMP METB)on 022 Albumin [Mass/Vol] 3.9 g/dL Normal 3.4-5.0 [facility] Comment on above: Performed By: #### L IVER, LIPID, TSH, FT3, T4 #### [facility] [address] [place] [address] Dr. Frank Hills Albumin/Globulin [Mass ratio] 1.3 {ratio} Normal [facility] Comment on above: Performed By: #### L IVER, LIPID, TSH, FT3, T4 #### [facility] [address] [place] [address] Dr. Frank Hills ALP [Catalytic activity/Vol] 63 U/L Normal 46-116 [facility] Comment on above: Performed By: #### L IVER, LIPID, TSH, FT3, T4 #### [facility] [address] [place] [address] Dr. Frank Hills ALT [Catalytic activity/Vol] 27 U/L Normal 14-59 [facility] Comment on above: Performed By: #### L IVER, LIPID, TSH, FT3, T4 #### [facility] [address] [place] [address] Dr. Frank Hills Anion gap [Moles/Vol] 8.4 mmol/L Normal [facility] Comment on above: Performed By: #### L IVER, LIPID, TSH, FT3, T4 #### [facility] [address] [place] [address] Dr. Frank Hills AST [Catalytic activity/Vol] 31 U/L Normal 15-37 [facility] Comment on above: Performed By: #### L IVER, LIPID, TSH, FT3, T4 #### [facility] [address] [place] [address] Dr. Frank Hills Bilirubin [Mass/Vol] 0.7 mg/dL Normal 0.2-1.0 [facility] Comment on above: Performed By: #### L IVER, LIPID, TSH, FT3, T4 #### [facility] [address] [place] [address] Dr. Frank Hills Calcium [Mass/Vol] 9.0 mg/dL Normal 8.5-10.1 [facility] Comment on above: Performed By: #### L IVER, LIPID, TSH, FT3, T4 #### [facility] [address] [place] [address] Dr. Frank Hills Chloride [Moles/Vol] 102 mmol/L Normal 98-107 [facility] Comment on above: Performed By: #### L IVER, LIPID, TSH, FT3, T4 #### [facility] [address] [place] [address] Dr. Frank Hills CO2 [Moles/Vol] 30.8 mmol/L Normal 21.0-32.0 [facility] Comment on above: Performed By: #### L IVER, LIPID, TSH, FT3, T4 #### [facility] [address] [address] [address] Frank Hills Creatinine [Mass/Vol] 0.62 mg/dL Normal 0.55-1.02 [facility] Comment on above: Performed By: #### L IVER, LIPID, TSH, FT3, T4 #### [facility] [address] [address] [address] Frank Hills EGFR-AF [facility] >60 Normal >=60 [facility] Comment on above: Performed By: #### L IVER, LIPID, TSH, FT3, T4 #### [facility] [address] [place] [address] Dr. Frank Hills EGFR-NON AF [facility] >60 Normal >=60 [facility] Comment on above: Performed By: #### L IVER, LIPID, TSH, FT3, T4 #### [facility] [address] [place] [address] Dr. Frank Hills Globulin (S) [Mass/Vol] 3.1 g/dL Normal [facility] Comment on above: Performed By: #### L IVER, LIPID, TSH, FT3, T4 #### [facility] [address] [address] [address] Frank Hills Glucose [Mass/Vol] 102 mg/dL Normal 74-106 [facility] Comment on above: Performed By: #### L IVER, LIPID, TSH, FT3, T4 #### [facility] [address] [address] [address] Frank Hills Potassium [Moles/Vol] 4.2 mmol/L Normal 3.5-5.1 [facility] Comment on above: Performed By: #### L IVER, LIPID, TSH, FT3, T4 #### [facility] [address] [address] [address] Frank Hills Protein [Mass/Vol] 7.0 g/dL Normal 6.4-8.2 [facility] Comment on above: Performed By: #### L IVER, LIPID, TSH, FT3, T4 #### [facility] [address] [address] [address] Frank Hills Sodium [Moles/Vol] 137 mmol/L Normal 136-145 [facility] Comment on above: Performed By: #### L IVER, LIPID, TSH, FT3, T4 #### [facility] [address] [address] [address] Frank Hills Urea nitrogen [Mass/Vol] 15.0 mg/dL Normal 7.0-18.0 [facility] Comment on above: Performed By: #### L IVER, LIPID, TSH, FT3, T4 #### [facility] [address] [place] [address] Dr. Frank Hills Urea nitrogen/Creatinine [Mass ratio] 24.2 mg/mg Normal [facility] Comment on above: Performed By: #### L IVER, LIPID, TSH, FT3, T4 #### [facility] [address] [place] [address] Dr. Frank Hills SED RATE [facility] 2021 SED RATE 8 mm/hr Normal <=30 [facility] Comment on above: Performed By: #### L IVER, LIPID, TSH, FT3, T4 #### [facility] [address] [place] [address] Dr. Frank Hills UA RANDOM W/MICROSCOPICon BACTERIA NONE SEEN Normal NONE SEEN [facility] Comment on above: Performed By: #### L IVER, LIPID, TSH, FT3, T4 #### [facility] [address] [place] [address] Dr. Frank Hills Bilirubin Ql (U) Negative Normal NEGATIVE [facility] Comment on above: Performed By: #### L IVER, LIPID, TSH, FT3, T4 #### [facility] [address] [place] [address] Dr. Frank Hills CAST NONE SEEN Normal NONE SEEN [facility] Comment on above: Performed By: #### L IVER, LIPID, TSH, FT3, T4 #### [facility] [address] [address] [address] Frank Hills Clarity (U) CLEAR Normal CLEAR [facility] Comment on above: Performed By: #### L IVER, LIPID, TSH, FT3, T4 #### [facility] [address] [address] [address] Frank Hills Color (U) LT. YELLOW Normal YELLOW [facility] Comment on above: Performed By: #### L IVER, LIPID, TSH, FT3, T4 #### [facility] [address] [address] [address] Frank Hills Crystals LM Nom (Urine sed) NONE SEEN Normal NONE SEEN [facility] Comment on above: Performed By: #### L IVER, LIPID, TSH, FT3, T4 #### [facility] [address] [place] [address] Dr. Frank Hills Epithelial cells LM Ql (Urine sed) NONE SEEN Normal NONE SEEN /RARE [facility] Comment on above: Performed By: #### L IVER, LIPID, TSH, FT3, T4 #### [facility] [address] [place] [address] Dr. Frank Hills Glucose Ql (U) Negative Normal NEGATIVE [facility] Comment on above: Performed By: #### L IVER, LIPID, TSH, FT3, T4 #### [facility] [address] [place] [address] Dr. Frank Hills Hemoglobin Ql (U) Negative Normal NEGATIVE [facility] Comment on above: Performed By: #### L IVER, LIPID, TSH, FT3, T4 #### [facility] [address] [address] [address] Frank Hills Ketones Ql (U) Negative Normal NEGATIVE [facility] Comment on above: Performed By: #### L IVER, LIPID, TSH, FT3, T4 #### [facility] [address] [address] [address] Frank Hills LEUKOCYTES Negative Normal NEGATIVE [facility] Comment on above: Performed By: #### L IVER, LIPID, TSH, FT3, T4 #### [facility] [address] [address] [address] Frank Hills MUCOUS NONE SEEN Normal NONE SEEN [facility] Comment on above: Performed By: #### L IVER, LIPID, TSH, FT3, T4 #### [facility] [address] [address] [address] Frank Hills Nitrite Ql (U) Negative Normal NEGATIVE [facility] Comment on above: Performed By: #### L IVER, LIPID, TSH, FT3, T4 #### [facility] [address] [place] [address] Dr. Frank Hills pH (U) 6.5 [pH] Normal 5-9 [facility] Comment on above: Performed By: #### L IVER, LIPID, TSH, FT3, T4 #### [facility] [address] [place] [address] Dr. Frank Hills RBC 0-2 Normal 0-2 [facility] Comment on above: Performed By: #### L IVER, LIPID, TSH, FT3, T4 #### [facility] [address] [address] [address] Frank Hills SPEC GRAVITY 1.015 Normal 1.005-<=1.025 [facility] Comment on above: Performed By: #### L IVER, LIPID, TSH, FT3, T4 #### [facility] [address] [address] [address] Frank Hills UA PROTEIN Negative Normal NEGATIVE/ TRACE [facility] Comment on above: Performed By: #### L IVER, LIPID, TSH, FT3, T4 #### [facility] [address] [address] [address] Frank Hills Urobilinogen Qn (U) 0.2 {Flaquita'U}/dL Normal 0.2 - 1. 0 [facility] Comment on above: Performed By: #### L IVER, LIPID, TSH, FT3, T4 #### [facility] [address] [place] [address] Dr. Frank Hills WBC NONE SEEN Normal NONE SEEN [facility] Comment on above: Performed By: #### L IVER, LIPID, TSH, FT3, T4 #### [facility] [address] [place] [address] Dr. Frank Hills INSULINon 10-19-2022 Insulin 9.2 uIU/mL Normal 2.6-24.9 [facility] Comment on above: Performed By: #### L IVER, LIPID, TSH, FT3, T4 #### [facility] [address] [place] [address] Dr. Frank Hills CBC W MANUAL DIFFon 10-18-20 22 ANISOCYTOSIS SLIGHT Normal [facility] Comment on above: Performed By: #### L IVER, LIPID, TSH, FT3, T4 #### [facility] [address] [place] [address] Dr. Frank Hills ATYPICAL LYMPH # Normal [facility] Comment on above: Performed By: #### L IVER, LIPID, TSH, FT3, T4 #### [facility] [address] [place] [address] Dr. Frank Hills ATYPICAL LYMPH % Normal [facility] Comment on above: Performed By: #### L IVER, LIPID, TSH, FT3, T4 #### [facility] [address] [place] [address] Dr. Frank Hills BAND # Normal 0.0-0.3 [facility] Comment on above: Performed By: #### L IVER, LIPID, TSH, FT3, T4 #### [facility] [address] [place] [address] Dr. Frank Hills BAND % Normal 0-5 [facility] Comment on above: Performed By: #### L IVER, LIPID, TSH, FT3, T4 #### [facility] [address] [place] [address] Dr. Frank Hills BASOM # 0.00 103/ul Normal 0.00-0.10 [facility] Comment on above: Performed By: #### L IVER, LIPID, TSH, FT3, T4 #### [facility] [address] [place] [address] Dr. Frank Hills BASOM % 0.0 % Critically low 0.2-2.0 [facility] Comment on above: Performed By: #### L IVER, LIPID, TSH, FT3, T4 #### [facility] [address] [place] [address] Dr. Frank Hills BLAST # Normal [facility] Comment on above: Performed By: #### L IVER, LIPID, TSH, FT3, T4 #### [facility] [address] [address] [address] Frank Hills BLAST % Normal [facility] Comment on above: Performed By: #### L IVER, LIPID, TSH, FT3, T4 #### [facility] [address] [place] [address] Dr. Frank Hills CORRECTED WBC Normal 4.0-11.0 [facility] Comment on above: Performed By: #### L IVER, LIPID, TSH, FT3, T4 #### [facility] [address] [place] [address] Dr. Frank Hills EOS # 0.06 103/ul Normal 0.00-0.70 [facility] Comment on above: Performed By: #### L IVER, LIPID, TSH, FT3, T4 #### [facility] [address] [place] [address] Dr. Frank Hills EOS% 2.0 % Normal 0.9-7.0 [facility] Comment on above: Performed By: #### L IVER, LIPID, TSH, FT3, T4 #### [facility] [address] [place] [address] Dr. Frank Hills HCT 35.6 % Critically low 36.0-48.0 [facility] Comment on above: Performed By: #### L IVER, LIPID, TSH, FT3, T4 #### [facility] [address] [place] [address] Dr. Frank Hilsl HGB 11.4 g/dl Critically low 12.0-16.0 [facility] Comment on above: Performed By: #### L IVER, LIPID, TSH, FT3, T4 #### [facility] [address] [address] [address] Frank Hills LYMPHM # 0.48 103/ul Critically low 1.20-3.80 [facility] Comment on above: Performed By: #### L IVER, LIPID, TSH, FT3, T4 #### [facility] [address] [place] [address] Dr. Frank Hills LYMPHM% 17.0 % Critically low 20.5-60.0 [facility] Comment on above: Performed By: #### L IVER, LIPID, TSH, FT3, T4 #### [facility] [address] [place] [address] Dr. Frank Hills MCH 33.4 pg Normal 26.7-34.0 [facility] Comment on above: Performed By: #### L IVER, LIPID, TSH, FT3, T4 #### [facility] [address] [place] [address] Dr. Frank Hills MCHC 32.0 g/dl Normal 29.9-35.2 [facility] Comment on above: Performed By: #### L IVER, LIPID, TSH, FT3, T4 #### [facility] [address] [place] [address] Dr. Frank Hills MCV 104.4 fL Critically high 81.0-99.0 [facility] Comment on above: Performed By: #### L IVER, LIPID, TSH, FT3, T4 #### [facility] [address] [place] [address] Dr. Frank Hills METAMYELOCYTE # Normal [facility] Comment on above: Performed By: #### L IVER, LIPID, TSH, FT3, T4 #### [facility] [address] [place] [address] Dr. Frank Hills METAMYELOCYTE % Normal [facility] Comment on above: Performed By: #### L IVER, LIPID, TSH, FT3, T4 #### [facility] [address] [place] [address] Dr. Frank Hills MICROCYTOSIS 1+ Normal [facility] Comment on above: Performed By: #### L IVER, LIPID, TSH, FT3, T4 #### [facility] [address] [place] [address] Dr. Frank Hills MONOM# 0.28 103/ul Critically low 0.30-0.80 [facility] Comment on above: Performed By: #### L IVER, LIPID, TSH, FT3, T4 #### [facility] [address] [place] [address] Dr. Frank Hills MONOM% 10.0 % Normal 1.7-12.0 [facility] Comment on above: Performed By: #### L IVER, LIPID, TSH, FT3, T4 #### [facility] [address] [place] [address] Dr. Frank Hills MPV 8.9 fL Critically low 9.5-13.5 [facility] Comment on above: Performed By: #### L IVER, LIPID, TSH, FT3, T4 #### [facility] [address] [place] [address] Dr. Frank Hills MYELOCYTE # Normal [facility] Comment on above: Performed By: #### L IVER, LIPID, TSH, FT3, T4 #### [facility] [address] [place] [address] Dr. Frank Hills MYELOCYTE % Normal [facility] Comment on above: Performed By: #### L IVER, LIPID, TSH, FT3, T4 #### [facility] [address] [place] [address] Dr. Frank Hills NRBC Normal [facility] Comment on above: Performed By: #### L IVER, LIPID, TSH, FT3, T4 #### [facility] [address] [place] [address] Dr. Frank Hills PLT 169 103/ul Normal 150-450 [facility] Comment on above: Performed By: #### L IVER, LIPID, TSH, FT3, T4 #### [facility] [address] [place] [address] Dr. Frank Hills RBC 3.41 106/ul Critically low 4.20-5.40 [facility] Comment on above: Performed By: #### L IVER, LIPID, TSH, FT3, T4 #### [facility] [address] [place] [address] Dr. Frank Hills RDW 14.1 % Normal 11.0-15.0 [facility] Comment on above: Performed By: #### L IVER, LIPID, TSH, FT3, T4 #### [facility] [address] [place] [address] Dr. Frank Hills SEG # 1.99 103/ul Normal 1.40-6.50 [facility] Comment on above: Performed By: #### L IVER, LIPID, TSH, FT3, T4 #### [facility] [address] [place] [address] Dr. Frank Hills SEG % 71.0 % Normal 43.0-75.0 [facility] Comment on above: Performed By: #### L IVER, LIPID, TSH, FT3, T4 #### [facility] [address] [place] [address] Dr. Frank Hills WBC 2.8 103/ul Critically low 4.0-11.0 [facility] Comment on above: Performed By: #### L IVER, LIPID, TSH, FT3, T4 #### [facility] [address] [place] [address] Dr. Frank Hilsl FREE T3on 10-18-2022 FREE T3 2.61 pg/mlL Normal 2.18-3.98 [facility] Comment on above: Performed By: #### L IVER, LIPID, TSH, FT3, T4 #### [facility] [address] [place] [address] Dr. Frank Hills GLYCOHEMOGLOBIN A1Con 2021 ADA RECOMMENDATION SEE BELOW Normal [facility] Comment on above: Result Comment: ADA RECOMMENDED LIMIT 4.0 - 6.0 ADA THERAPEUTIC TARGET < 7.0 ACTION SUGGESTED > 7.0 Performed By: #### A 1C #### [facility] [address] [place] [address] Dr. Frank Hills Glucose [Mass/Vol] 108 mg/dL Normal [facility] Comment on above: Performed By: #### A 1C #### [facility] [address] [place] [address] Dr. Frank Hills HbA1c (Bld) [Mass fraction] 5.4 % Normal 4.5-6.2 [facility] Comment on above: Performed By: #### A 1C #### [facility] [address] [place] [address] Dr. Frank Hills IRONon 10-18-2022 Iron [Mass/Vol] 96.0 ug/dL Normal 50.0-170.0 [facility] Comment on above: Performed By: #### L IVER, LIPID, TSH, FT3, T4 #### [facility] [address] [place] [address] Dr. Frank Hills LIPID PROFILEon 10-18-2022 CHOL-HDL RATIO NORM SEE BELOW Normal [facility] Comment on above: Result Comment: 3.3 - 4.4 LOW RISK 4.4 - 7.1 AVERAGE RISK 7.1 - 11.0 MODERATE RISK >11.0 HIGH RISK Performed By: #### L IVER, LIPID, TSH, FT3, T4 #### [facility] [address] [place] [address] Dr. Frank Hills Cholesterol [Mass/Vol] 172 mg/dL Normal <=200 [facility] Comment on above: Performed By: #### L IVER, LIPID, TSH, FT3, T4 #### [facility] [address] [place] [address] Dr. Frank Hills Cholesterol in HDL [Mass/Vol] 66 mg/dL Critically high 40-60 [facility] Comment on above: Performed By: #### L IVER, LIPID, TSH, FT3, T4 #### [facility] [address] [place] [address] Dr. Frank Hills Cholesterol in LDL [Mass/Vol] 86.6 mg/dL Normal [facility] Comment on above: Performed By: #### L IVER, LIPID, TSH, FT3, T4 #### [facility] [address] [address] [address] Frank Hills Cholesterol.total/Ch olesterol in HDL [Mass ratio] 2.6 {ratio} Normal [facility] Comment on above: Performed By: #### L IVER, LIPID, TSH, FT3, T4 #### [facility] [address] [address] [address] Frank Hills HDL NORMAL > or = 60 mg/dl - LO W CARDIOVASCULAR RISK <40 mg/dl - HIGH CARDIOVASCULAR RISK Normal [facility] Comment on above: Performed By: #### L IVER, LIPID, TSH, FT3, T4 #### [facility] [address] [address] [address] Frank Hills LDL CALC NORMAL SEE BELOW Normal [facility] Comment on above: Result Comment: <100 mg/dl OPTIMAL 100 - 129 mg/dl NEAR OR ABOVE OPTIMAL 130 - 159 mg/dl BORDERLINE HIGH 160 - 189 mg/dl HIGH >190 mg/dl VERY HIGH Performed By: #### L IVER, LIPID, TSH, FT3, T4 #### [facility] [address] [address] [address] Frank Hills Triglyceride [Mass/Vol] 97 mg/dL Normal <=150 [facility] Comment on above: Performed By: #### L IVER, LIPID, TSH, FT3, T4 #### [facility] [address] [address] [address] Frank Hills VLDL CALC 19.4 mg/dL Normal [facility] Comment on above: Performed By: #### L IVER, LIPID, TSH, FT3, T4 #### [facility] [address] [address] [address] Frank Hills LIVER PROFILEon 10-18-2022 Albumin [Mass/Vol] 3.5 g/dL Normal 3.4-5.0 [facility] Comment on above: Performed By: #### L IVER, LIPID, TSH, FT3, T4 #### [facility] [address] [place] [address] Dr. Frank Hills Albumin/Globulin [Mass ratio] 1.2 {ratio} Normal [facility] Comment on above: Performed By: #### L IVER, LIPID, TSH, FT3, T4 #### [facility] [address] [address] [address] Frank Hills ALP [Catalytic activity/Vol] 55 U/L Normal 46-116 [facility] Comment on above: Performed By: #### L IVER, LIPID, TSH, FT3, T4 #### [facility] [address] [address] [address] Frank Hills ALT [Catalytic activity/Vol] 34 U/L Normal 14-59 [facility] Comment on above: Performed By: #### L IVER, LIPID, TSH, FT3, T4 #### [facility] [address] [place] [address] Dr. Frank Hills AST [Catalytic activity/Vol] 40 U/L Critically high 15-37 [facility] Comment on above: Performed By: #### L IVER, LIPID, TSH, FT3, T4 #### [facility] [address] [place] [address] Dr. Frank Hills BILI, CONJUGATED 0.2 mg/dL Normal 0.0-0.2 [facility] Comment on above: Performed By: #### L IVER, LIPID, TSH, FT3, T4 #### [facility] [address] [place] [address] Dr. Frank Hills Bilirubin [Mass/Vol] 0.8 mg/dL Normal 0.2-1.0 [facility] Comment on above: Performed By: #### L IVER, LIPID, TSH, FT3, T4 #### [facility] [address] [place] [address] Dr. Frank Hills Globulin (S) [Mass/Vol] 2.9 g/dL Normal [facility] Comment on above: Performed By: #### L IVER, LIPID, TSH, FT3, T4 #### [facility] [address] [place] [address] Dr. Frank Hills Protein [Mass/Vol] 6.4 g/dL Normal 6.4-8.2 [facility] Comment on above: Performed By: #### L IVER, LIPID, TSH, FT3, T4 #### [facility] [address] [place] [address] Dr. Frank Hills T4on 10-18-2022 T4 [Mass/Vol] 6.70 ug/dL Normal 4.80-13.90 [facility] Comment on above: Performed By: #### L IVER, LIPID, TSH, FT3, T4 #### [facility] [address] [address] [address] Frank Hills TSHon 10-18-2022 TSH 1.804 uIU/mL Normal 0.358-3.740 [facility] Comment on above: Performed By: #### L IVER, LIPID, TSH, FT3, T4 #### [facility] [address] [place] [address] Dr. Frank Hills VITAMIN D 25 OHon 10-18-2022 VIT D 25-OH 50.7 ng/mL Normal [facility] Comment on above: Performed By: #### L IVER, LIPID, TSH, FT3, T4 #### [facility] [address] [place] [address] Dr. Frank Hills VIT D RANGES SEE BELOW Normal [facility] Comment on above: Result Comment: <20 ng/mL Vit D deficient 20 - <30 ng/mL Vit D insufficient 30 - 100 ng/mL Vit D sufficient >100 ng/mL Potential Toxicity Performed By: #### L IVER, LIPID, TSH, FT3, T4 #### [facility] [address] [place] [address] Dr. Frank Hills MG MAMM SCREEN 3D BO CADon 08-31-2022 MG MAMM SCREEN 3D BO CAD Patient: DANYELLE HASKINS Exam Date: 08/31/2022 : 1955 Gender:F Ordering : DR JACK LANDAVERDE . Admission #: [id number] Family : DR YULISA BATRES . Order #: [id number] CLICK HERE TO VIEW EXAM RADIOLOGY REPORT PROCEDURE: MAMMOGRAM SCREENING 3D BILATERAL CAD COMPARISON: MG MAMM SCREEN 3D BO CAD, 08/27/2021. MG MAMM SCREEN BO W CAD, 08/25/2020. INDICATIONS: Screening mammography Calculator Name NCI Breast Cancer Risk Assessment Tool 5 Year Breast Cancer Risk 1.90% Lifetime Breast Cancer Risk 5.90% Personal Breast Cancer No Personal Ovarian Cancer No Treatments None Family Cancers Father with stomach cancer at age 55; Sister with thyroid cancer at age 50. LOCATION: [facility] BREAST COMPOSITION: Scattered areas fibroglandular density. FINDINGS: DIAGNOSTIC CATEGORY 1--NEGATIVE. NO CHANGE FROM COMPARISON ASSESSMENT. Scattered benign-appearing calcifications are present. Scattered benign-appearing lymph nodes are present. RIGHT BREAST: No significant suspicious finding. LEFT BREAST: No significant suspicious finding. RECOMMENDATIONS: ROUTINE MAMMOGRAM AND CLINICAL EVALUATION IN 12 MONTHS. PLEASE NOTE: A NORMAL MAMMOGRAM DOES NOT EXCLUDE THE POSSIBILITY OF BREAST CANCER. A CLINICALLY SUSPICIOUS PALPABLE LUMP SHOULD BE BIOPSIED. Dictated by: Lisy Sandoval MD on 08/31/2022 at 11:12 Approved by: Lisy Sandoval MD on 08/31/2022 at 11:14 Normal [facility] XR DEXA BONE DENSITYon 08-27 XR DEXA BONE DENSITY EXAMINATION: XR DEX A BONE DENSITY, 08/27/2022 9:03 AM EDT HISTORY: Senile osteoporosis COMPARISON: 2017 TECHNIQUE: Dual-energy X-ray absorptiometry (DEXA) bone density study performed for the axial skeleton. FINDINGS: Bone mineral density of the left femoral trochanter measures 0.581 g/sq cm. T score -2.3. WHO classification osteopenia IMPRESSION: Osteopenia. Moderate fracture risk Electronically authenticated by: LISY SANDOVAL Date: 2022-08-27 18:41 Normal [facility] COMPLEMENT TOTAL (CH50)on Complement, Total (CH50) >60 Normal >41 [facility] Comment on above: Result Comment: Age Male Female 1 - 30 days Not Estab. Not Estab. 31 days - 6 months >32 >20 7 months - 17 years >39 >39 >17 years >41 >41 NOTE: The adult ( >17 years ) reference interval range is used to flag abnormals on this report. If the patient is 17 years old or younger, use the table above to determine out of range values. Performed By: #### L IVER, LIPID, TSH, FT3, T4 #### [facility] [address] [place] [address] Dr. Frank Hills C3 and C4 COMPLEMENTon 08-01 Complement C3, Serum 146 mg/dL Normal 82-167 [facility] Comment on above: Performed By: #### L IVER, LIPID, TSH, FT3, T4 #### [facility] [address] [place] [address] Dr. Frank Hills Complement C4, Serum 38 mg/dL Normal 12-38 [facility] Comment on above: Performed By: #### L IVER, LIPID, TSH, FT3, T4 #### [facility] [address] [place] [address] Dr. Frank Hills CBC AUTO DIFFon 07-30-2022 BASO # 0.0 103/ul Normal 0.0-0.1 [facility] Comment on above: Performed By: #### C BC #### [facility] [address] [place] [address] Dr. Frank Hills Basophils/100 WBC (Bld) 0.9 % Normal 0.2-2.0 [facility] Comment on above: Performed By: #### C BC #### [facility] [address] [place] [address] Dr. Frank Hills EO # 0.1 103/ul Normal 0.0-0.7 [facility] Comment on above: Performed By: #### C BC #### [facility] [address] [place] [address] Dr. Frank Hills Eosinophils/100 WBC (Bld) 3.4 % Normal 0.9-7.0 [facility] Comment on above: Performed By: #### C BC #### [facility] [address] [place] [address] Dr. Frank Hills Erythrocyte distribution width (RBC) [Ratio] 13.8 % Normal 11.0-15.0 [facility] Comment on above: Performed By: #### C BC #### [facility] [address] [place] [address] Dr. Frank Hills Hematocrit (Bld) [Volume fraction] 36.6 % Normal 36.0-48.0 [facility] Comment on above: Performed By: #### C BC #### [facility] [address] [place] [address] Dr. Frank Hills Hemoglobin (Bld) [Mass/Vol] 11.8 g/dL Critically low 12.0-16.0 [facility] Comment on above: Performed By: #### C BC #### [facility] [address] [place] [address] Dr. Frank Hills IG # 0.01 10e3/ul Normal 0.00-0.03 [facility] Comment on above: Performed By: #### C BC #### [facility] [address] [place] [address] Dr. Frank Hills IG % 0.3 % Normal 0.0-0.5 [facility] Comment on above: Performed By: #### C BC #### [facility] [address] [place] [address] Dr. Frank Hills LYMPH # 0.6 103/ul Critically low 1.2-3.8 [facility] Comment on above: Performed By: #### C BC #### [facility] [address] [place] [address] Dr. Frank Hills Lymphocytes/100 WBC (Bld) 18.1 % Critically low 20.5-60.0 [facility] Comment on above: Performed By: #### C BC #### [facility] [address] [place] [address] Dr. Frank Hills MANUAL DIFF REQ NO Normal [facility] Comment on above: Performed By: #### C BC #### [facility] [address] [place] [address] Dr. Frank Hills MCH (RBC) [Entitic mass] 33.6 pg Normal 26.7-34.0 [facility] Comment on above: Performed By: #### C BC #### [facility] [address] [place] [address] Dr. Frank Hills MCHC (RBC) [Mass/Vol] 32.2 g/dL Normal 29.9-35.2 [facility] Comment on above: Performed By: #### C BC #### [facility] [address] [address] [address] Frank Hills MCV (RBC) [Entitic vol] 104.3 fL Critically high 81.0-99.0 [facility] Comment on above: Performed By: #### C BC #### [facility] [address] [address] [address] Frank Hills MONO # 0.4 103/ul Normal 0.3-0.8 [facility] Comment on above: Performed By: #### C BC #### [facility] [address] [address] [address] Frank Hills Monocytes/100 WBC (Bld) 11.2 % Normal 1.7-12.0 [facility] Comment on above: Performed By: #### C BC #### [facility] [address] [address] [address] Frank Hills NEUT # 2.3 103/ul Normal 1.4-6.5 [facility] Comment on above: Performed By: #### C BC #### [facility] [address] [address] [address] Frank Hills Neutrophils/100 WBC (Bld) 66.1 % Normal 43.0-75.0 [facility] Comment on above: Performed By: #### C BC #### [facility] [address] [address] [address] Frank Hills Platelet mean volume (Bld) [Entitic vol] 8.9 fL Critically low 9.5-13.5 [facility] Comment on above: Performed By: #### C BC #### [facility] [address] [address] [address] Frank Hills PLT 213 103/ul Normal 150-450 [facility] Comment on above: Performed By: #### C BC #### [facility] [address] [address] [address] Frank Hills RBC 3.51 106/ul Critically low 4.20-5.40 [facility] Comment on above: Performed By: #### C BC #### [facility] [address] [address] [address] Frank Hills WBC 3.5 103/ul Critically low 4.0-11.0 [facility] Comment on above: Performed By: #### C BC #### [facility] [address] [place] [address] Dr. Frank Hills PROF 14(COMP METB)on 022 Albumin [Mass/Vol] 3.7 g/dL Normal 3.4-5.0 [facility] Comment on above: Performed By: #### L IVER, LIPID, TSH, FT3, T4 #### [facility] [address] [place] [address] Dr. Frank Hills Albumin/Globulin [Mass ratio] 1.2 {ratio} Normal [facility] Comment on above: Performed By: #### L IVER, LIPID, TSH, FT3, T4 #### [facility] [address] [place] [address] Dr. Frank Hills ALP [Catalytic activity/Vol] 59 U/L Normal 46-116 [facility] Comment on above: Performed By: #### L IVER, LIPID, TSH, FT3, T4 #### [facility] [address] [place] [address] Dr. Frank Hills ALT [Catalytic activity/Vol] 23 U/L Normal 14-59 [facility] Comment on above: Performed By: #### L IVER, LIPID, TSH, FT3, T4 #### [facility] [address] [place] [address] Dr. Frank Hlils Anion gap [Moles/Vol] 10.2 mmol/L Normal [facility] Comment on above: Performed By: #### L IVER, LIPID, TSH, FT3, T4 #### [facility] [address] [place] [address] Dr. Frank Hills AST [Catalytic activity/Vol] 24 U/L Normal 15-37 [facility] Comment on above: Performed By: #### L IVER, LIPID, TSH, FT3, T4 #### [facility] [address] [place] [address] Dr. Frank Hills Bilirubin [Mass/Vol] 0.6 mg/dL Normal 0.2-1.0 [facility] Comment on above: Performed By: #### L IVER, LIPID, TSH, FT3, T4 #### [facility] [address] [address] [address] Frank Hills Calcium [Mass/Vol] 8.9 mg/dL Normal 8.5-10.1 [facility] Comment on above: Performed By: #### L IVER, LIPID, TSH, FT3, T4 #### [facility] [address] [address] [address] Frank Hills Chloride [Moles/Vol] 105 mmol/L Normal 98-107 [facility] Comment on above: Performed By: #### L IVER, LIPID, TSH, FT3, T4 #### [facility] [address] [place] [address] Dr. Frank Hills CO2 [Moles/Vol] 30.0 mmol/L Normal 21.0-32.0 [facility] Comment on above: Performed By: #### L IVER, LIPID, TSH, FT3, T4 #### [facility] [address] [address] [address] Frank Hills Creatinine [Mass/Vol] 0.64 mg/dL Normal 0.55-1.02 [facility] Comment on above: Performed By: #### L IVER, LIPID, TSH, FT3, T4 #### [facility] [address] [place] [address] Dr. Frank Hills EGFR-AF [facility] >60 Normal >=60 [facility] Comment on above: Performed By: #### L IVER, LIPID, TSH, FT3, T4 #### [facility] [address] [address] [address] Frank Hills EGFR-NON AF [facility] >60 Normal >=60 [facility] Comment on above: Performed By: #### L IVER, LIPID, TSH, FT3, T4 #### [facility] [address] [address] [address] Frank Hills Globulin (S) [Mass/Vol] 3.0 g/dL Normal [facility] Comment on above: Performed By: #### L IVER, LIPID, TSH, FT3, T4 #### [facility] [address] [address] [address] Frank Hills Glucose [Mass/Vol] 97 mg/dL Normal 74-106 [facility] Comment on above: Performed By: #### L IVER, LIPID, TSH, FT3, T4 #### [facility] [address] [place] [address] Dr. Frank Hills Potassium [Moles/Vol] 4.2 mmol/L Normal 3.5-5.1 [facility] Comment on above: Performed By: #### L IVER, LIPID, TSH, FT3, T4 #### [facility] [address] [place] [address] Dr. Frank Hills Protein [Mass/Vol] 6.7 g/dL Normal 6.4-8.2 [facility] Comment on above: Performed By: #### L IVER, LIPID, TSH, FT3, T4 #### [facility] [address] [address] [address] Frank Hills Sodium [Moles/Vol] 141 mmol/L Normal 136-145 [facility] Comment on above: Performed By: #### L IVER, LIPID, TSH, FT3, T4 #### [facility] [address] [place] [address] Dr. Frank Hills Urea nitrogen [Mass/Vol] 13.0 mg/dL Normal 7.0-18.0 [facility] Comment on above: Performed By: #### L IVER, LIPID, TSH, FT3, T4 #### [facility] [address] [place] [address] Dr. Frank Hills Urea nitrogen/Creatinine [Mass ratio] 20.3 mg/mg Normal [facility] Comment on above: Performed By: #### L IVER, LIPID, TSH, FT3, T4 #### [facility] [address] [place] [address] Dr. Frank Hills SED RATE [facility] 2021 SED RATE 8 mm/hr Normal <=30 [facility] Comment on above: Performed By: #### L IVER, LIPID, TSH, FT3, T4 #### [facility] [address] [address] [address] Frank Hills UA RANDOM W/MICROSCOPICon BACTERIA NONE SEEN Normal NONE SEEN [facility] Comment on above: Performed By: #### L IVER, LIPID, TSH, FT3, T4 #### [facility] [address] [address] [address] Frank Hills Bilirubin Ql (U) Negative Normal NEGATIVE [facility] Comment on above: Performed By: #### L IVER, LIPID, TSH, FT3, T4 #### [facility] [address] [place] [address] Dr. Frank Hills CAST NONE SEEN Normal NONE SEEN [facility] Comment on above: Performed By: #### L IVER, LIPID, TSH, FT3, T4 #### [facility] [address] [place] [address] Dr. Frank Hills Clarity (U) CLEAR Normal CLEAR [facility] Comment on above: Performed By: #### L IVER, LIPID, TSH, FT3, T4 #### [facility] [address] [place] [address] Dr. Frank Hills Color (U) LT. YELLOW Normal YELLOW [facility] Comment on above: Performed By: #### L IVER, LIPID, TSH, FT3, T4 #### [facility] [address] [address] [address] Frank Hills Crystals LM Nom (Urine sed) NONE SEEN Normal NONE SEEN [facility] Comment on above: Performed By: #### L IVER, LIPID, TSH, FT3, T4 #### [facility] [address] [place] [address] Dr. Frank Hills Epithelial cells LM Ql (Urine sed) FEW Abnormal NONE SEEN /RARE [facility] Comment on above: Performed By: #### L IVER, LIPID, TSH, FT3, T4 #### [facility] [address] [place] [address] Dr. Frank Hills Glucose Ql (U) Negative Normal NEGATIVE [facility] Comment on above: Performed By: #### L IVER, LIPID, TSH, FT3, T4 #### [facility] [address] [address] [address] Frank Hills Hemoglobin Ql (U) Negative Normal NEGATIVE [facility] Comment on above: Performed By: #### L IVER, LIPID, TSH, FT3, T4 #### [facility] [address] [address] [address] Frank Hills Ketones Ql (U) Negative Normal NEGATIVE [facility] Comment on above: Performed By: #### L IVER, LIPID, TSH, FT3, T4 #### [facility] [address] [place] [address] Dr. Frank Hills LEUKOCYTES TRACE Abnormal NEGATIVE [facility] Comment on above: Performed By: #### L IVER, LIPID, TSH, FT3, T4 #### [facility] [address] [place] [address] Dr. Frank Hills MUCOUS NONE SEEN Normal NONE SEEN [facility] Comment on above: Performed By: #### L IVER, LIPID, TSH, FT3, T4 #### [facility] [address] [place] [address] Dr. Frank Hills Nitrite Ql (U) Negative Normal NEGATIVE [facility] Comment on above: Performed By: #### L IVER, LIPID, TSH, FT3, T4 #### [facility] [address] [place] [address] Dr. Frank Hills pH (U) 6.5 [pH] Normal 5-9 [facility] Comment on above: Performed By: #### L IVER, LIPID, TSH, FT3, T4 #### [facility] [address] [place] [address] Dr. Frank Hills RBC 0-2 Normal 0-2 [facility] Comment on above: Performed By: #### L IVER, LIPID, TSH, FT3, T4 #### [facility] [address] [place] [address] Dr. Frank Hills SPEC GRAVITY 1.025 Normal 1.005-<=1.025 [facility] Comment on above: Performed By: #### L IVER, LIPID, TSH, FT3, T4 #### [facility] [address] [address] [address] Frank Hills UA PROTEIN Negative Normal NEGATIVE/ TRACE [facility] Comment on above: Performed By: #### L IVER, LIPID, TSH, FT3, T4 #### [facility] [address] [address] [address] Frank Hills Urobilinogen Qn (U) 0.2 {Flaquita'U}/dL Normal 0.2 - 1. 0 [facility] Comment on above: Performed By: #### L IVER, LIPID, TSH, FT3, T4 #### [facility] [address] [address] [address] Frank Hills WBC 0-2 Abnormal NONE SEEN [facility] Comment on above: Performed By: #### L IVER, LIPID, TSH, FT3, T4 #### [facility] [address] [address] [address] Frank Hills C3 and C4 COMPLEMENTon 04-21 Complement C3, Serum 171 mg/dL Critically high 82-167 [facility] Comment on above: Performed By: #### L IVER, LIPID, TSH, FT3, T4 #### [facility] [address] [address] [address] Frank Hills Complement C4, Serum 40 mg/dL Critically high 12-38 [facility] Comment on above: Performed By: #### L IVER, LIPID, TSH, FT3, T4 #### [facility] [address] [address] [address] Frank Hills COMPLEMENT TOTAL (CH50)on Complement, Total (CH50) >60 Normal >41 [facility] Comment on above: Result Comment: Age Male Female 1 - 30 days Not Estab. Not Estab. 31 days - 6 months >32 >20 7 months - 17 years >39 >39 >17 years >41 >41 NOTE: The adult ( >17 years ) reference interval range is used to flag abnormals on this report. If the patient is 17 years old or younger, use the table above to determine out of range values. Performed By: #### L IVER, LIPID, TSH, FT3, T4 #### [facility] [address] [place] [address] Dr. Frank Hills CBC AUTO DIFFon 04-20-2022 BASO # 0.0 103/ul Normal 0.0-0.1 [facility] Comment on above: Performed By: #### L IVER, LIPID, TSH, FT3, T4 #### [facility] [address] [place] [address] Dr. Frank Hills Basophils/100 WBC (Bld) 0.4 % Normal 0.2-2.0 [facility] Comment on above: Performed By: #### L IVER, LIPID, TSH, FT3, T4 #### [facility] [address] [place] [address] Dr. Frank Hills EO # 0.1 103/ul Normal 0.0-0.7 [facility] Comment on above: Performed By: #### L IVER, LIPID, TSH, FT3, T4 #### [facility] [address] [place] [address] Dr. Frank Hills Eosinophils/100 WBC (Bld) 1.7 % Normal 0.9-7.0 [facility] Comment on above: Performed By: #### L IVER, LIPID, TSH, FT3, T4 #### [facility] [address] [place] [address] Dr. Frank Hills Erythrocyte distribution width (RBC) [Ratio] 13.2 % Normal 11.0-15.0 [facility] Comment on above: Performed By: #### L IVER, LIPID, TSH, FT3, T4 #### [facility] [address] [place] [address] Dr. Frank Hills Hematocrit (Bld) [Volume fraction] 39.6 % Normal 36.0-48.0 [facility] Comment on above: Performed By: #### L IVER, LIPID, TSH, FT3, T4 #### [facility] [address] [place] [address] Dr. Frank Hills Hemoglobin (Bld) [Mass/Vol] 12.7 g/dL Normal 12.0-16.0 [facility] Comment on above: Performed By: #### L IVER, LIPID, TSH, FT3, T4 #### [facility] [address] [place] [address] Dr. Frank Hills IG # 0.02 10e3/ul Normal 0.00-0.03 [facility] Comment on above: Performed By: #### L IVER, LIPID, TSH, FT3, T4 #### [facility] [address] [place] [address] Dr. Frank Hills IG % 0.4 % Normal 0.0-0.5 [facility] Comment on above: Performed By: #### L IVER, LIPID, TSH, FT3, T4 #### [facility] [address] [place] [address] Dr. Frank Hills LYMPH # 0.9 103/ul Critically low 1.2-3.8 [facility] Comment on above: Performed By: #### L IVER, LIPID, TSH, FT3, T4 #### [facility] [address] [place] [address] Dr. Frank Hills Lymphocytes/100 WBC (Bld) 17.3 % Critically low 20.5-60.0 [facility] Comment on above: Performed By: #### L IVER, LIPID, TSH, FT3, T4 #### [facility] [address] [place] [address] Dr. Frank Hills MANUAL DIFF REQ NO Normal [facility] Comment on above: Performed By: #### L IVER, LIPID, TSH, FT3, T4 #### [facility] [address] [place] [address] Dr. Frank Hills MCH (RBC) [Entitic mass] 33.7 pg Normal 26.7-34.0 [facility] Comment on above: Performed By: #### L IVER, LIPID, TSH, FT3, T4 #### [facility] [address] [place] [address] Dr. Frank Hills MCHC (RBC) [Mass/Vol] 32.1 g/dL Normal 29.9-35.2 [facility] Comment on above: Performed By: #### L IVER, LIPID, TSH, FT3, T4 #### [facility] [address] [address] [address] Frank Hills MCV (RBC) [Entitic vol] 105.0 fL Critically high 81.0-99.0 [facility] Comment on above: Performed By: #### L IVER, LIPID, TSH, FT3, T4 #### [facility] [address] [place] [address] Dr. Frank Hills MONO # 0.5 103/ul Normal 0.3-0.8 [facility] Comment on above: Performed By: #### L IVER, LIPID, TSH, FT3, T4 #### [facility] [address] [place] [address] Dr. Frank Hills Monocytes/100 WBC (Bld) 8.9 % Normal 1.7-12.0 [facility] Comment on above: Performed By: #### L IVER, LIPID, TSH, FT3, T4 #### [facility] [address] [place] [address] Dr. Frank Hills NEUT # 3.7 103/ul Normal 1.4-6.5 [facility] Comment on above: Performed By: #### L IVER, LIPID, TSH, FT3, T4 #### [facility] [address] [place] [address] Dr. Frank Hills Neutrophils/100 WBC (Bld) 71.3 % Normal 43.0-75.0 [facility] Comment on above: Performed By: #### L IVER, LIPID, TSH, FT3, T4 #### [facility] [address] [place] [address] Dr. Frank Hills Platelet mean volume (Bld) [Entitic vol] 8.9 fL Critically low 9.5-13.5 [facility] Comment on above: Performed By: #### L IVER, LIPID, TSH, FT3, T4 #### [facility] [address] [place], [place] [address] Dr. Frank Hills PLT 198 103/ul Normal 150-450 [facility] Comment on above: Performed By: #### L IVER, LIPID, TSH, FT3, T4 #### [facility] [address] [place], [place] [address] Dr. Frank Hills RBC 3.77 106/ul Critically low 4.20-5.40 [facility] Comment on above: Performed By: #### L IVER, LIPID, TSH, FT3, T4 #### [facility] [address] [place], [place] [address] Dr. Frank Hills WBC 5.2 103/ul Normal 4.0-11.0 [facility] Comment on above: Performed By: #### L IVER, LIPID, TSH, FT3, T4 #### [facility] [address] [place], [place] [address] Dr. Frank Hills [facility] EXAMINATION: MRI BRA IN [facility], 04/20/2022 9:23 AM EDT HISTORY: Headache COMPARISON: None. TECHNIQUE: MRI of the brain was performed without IV contrast. FINDINGS: CEREBRUM: Several small lacunar infarctions within the basal ganglia bilaterally versus prominent perivascular spaces. Small areas of increased T2 signal scattered within the subcortical and periventricular deep white matter favoring chronic small vessel ischemic changes. No edema, hemorrhage, mass, acute infarction, or inappropriate atrophy. CEREBELLUM: No edema, hemorrhage, mass, acute infarction, or inappropriate atrophy. BRAINSTEM: No edema, hemorrhage, mass, acute infarction, or inappropriate atrophy. CSF SPACES: Ventricles, cisterns, and sulci are appropriate for age. No hydrocephalus, subarachnoid hemorrhage, or mass. SKULL: No mass or other significant visible lesion. SINUSES: Trace amount of fluid versus mucosal thickening within a few right mastoid air cells. Paranasal sinuses are clear. ORBITS: Limited views are unremarkable. OTHER: Negative. IMPRESSION: 1. Age consistent mild atrophy and chronic small vessel ischemic changes. 2. Trace amount of fluid within a few right mastoid air cells; incidental versus mild mastoiditis. 3. No specific findings to account for patient's symptoms. Electronically authenticated by: CHARO MAY Date: 2022-04-20 16:44 Normal [facility] PROF 14(COMP METB)on 022 Albumin [Mass/Vol] 4.0 g/dL Normal 3.4-5.0 [facility] Comment on above: Performed By: #### L IVER, LIPID, TSH, FT3, T4 #### [facility] [address] [place] [address] Dr. Frank Hills Albumin/Globulin [Mass ratio] 1.1 {ratio} Normal [facility] Comment on above: Performed By: #### L IVER, LIPID, TSH, FT3, T4 #### [facility] [address] [place] [address] Dr. Frank Hills ALP [Catalytic activity/Vol] 68 U/L Normal 46-116 [facility] Comment on above: Performed By: #### L IVER, LIPID, TSH, FT3, T4 #### [facility] [address] [place] [address] Dr. Frank Hills ALT [Catalytic activity/Vol] 35 U/L Normal 14-59 [facility] Comment on above: Performed By: #### L IVER, LIPID, TSH, FT3, T4 #### [facility] [address] [place] [address] Dr. Frank Hills Anion gap [Moles/Vol] 10.1 mmol/L Normal [facility] Comment on above: Performed By: #### L IVER, LIPID, TSH, FT3, T4 #### [facility] [address] [place] [address] Dr. Frank Hills AST [Catalytic activity/Vol] 31 U/L Normal 15-37 [facility] Comment on above: Performed By: #### L IVER, LIPID, TSH, FT3, T4 #### [facility] [address] [place] [address] Dr. Frank Hills Bilirubin [Mass/Vol] 0.9 mg/dL Normal 0.2-1.0 [facility] Comment on above: Performed By: #### L IVER, LIPID, TSH, FT3, T4 #### [facility] [address] [address] [address] Frank Hills Calcium [Mass/Vol] 9.0 mg/dL Normal 8.5-10.1 [facility] Comment on above: Performed By: #### L IVER, LIPID, TSH, FT3, T4 #### [facility] [address] [place] [address] Dr. Frank Hills Chloride [Moles/Vol] 104 mmol/L Normal 98-107 [facility] Comment on above: Performed By: #### L IVER, LIPID, TSH, FT3, T4 #### [facility] [address] [place] [address] Dr. Frank Hills CO2 [Moles/Vol] 29.7 mmol/L Normal 21.0-32.0 [facility] Comment on above: Performed By: #### L IVER, LIPID, TSH, FT3, T4 #### [facility] [address] [place] [address] Dr. Frank Hills Creatinine [Mass/Vol] 0.68 mg/dL Normal 0.55-1.02 [facility] Comment on above: Performed By: #### L IVER, LIPID, TSH, FT3, T4 #### [facility] [address] [place] [address] Dr. Frank Hills EGFR-AF [facility] >60 Normal >=60 [facility] Comment on above: Performed By: #### L IVER, LIPID, TSH, FT3, T4 #### [facility] [address] [place] [address] Dr. Frank Hills EGFR-NON AF [facility] >60 Normal >=60 [facility] Comment on above: Performed By: #### L IVER, LIPID, TSH, FT3, T4 #### [facility] [address] [place] [address] Dr. Frank Hills Globulin (S) [Mass/Vol] 3.5 g/dL Normal [facility] Comment on above: Performed By: #### L IVER, LIPID, TSH, FT3, T4 #### [facility] [address] [place] [address] Dr. Frank Hills Glucose [Mass/Vol] 92 mg/dL Normal 74-106 [facility] Comment on above: Performed By: #### L IVER, LIPID, TSH, FT3, T4 #### [facility] [address] [place] [address] Dr. Frank Hills Potassium [Moles/Vol] 3.8 mmol/L Normal 3.5-5.1 [facility] Comment on above: Performed By: #### L IVER, LIPID, TSH, FT3, T4 #### [facility] [address] [place] [address] Dr. Frank Hills Protein [Mass/Vol] 7.5 g/dL Normal 6.4-8.2 [facility] Comment on above: Performed By: #### L IVER, LIPID, TSH, FT3, T4 #### [facility] [address] [place] [address] Dr. Frank Hills Sodium [Moles/Vol] 140 mmol/L Normal 136-145 [facility] Comment on above: Performed By: #### L IVER, LIPID, TSH, FT3, T4 #### [facility] [address] [place] [address] Dr. Frank Hills Urea nitrogen [Mass/Vol] 14.0 mg/dL Normal 7.0-18.0 [facility] Comment on above: Performed By: #### L IVER, LIPID, TSH, FT3, T4 #### [facility] [address] [place] [address] Dr. Frank Hills Urea nitrogen/Creatinine [Mass ratio] 20.6 mg/mg Normal [facility] Comment on above: Performed By: #### L IVER, LIPID, TSH, FT3, T4 #### [facility] [address] [place] [address] Dr. Frank Hills SED RATE WESTERGRENon 2021 SED RATE 6 mm/hr Normal <=30 [facility] Comment on above: Performed By: #### S EDR #### [facility] [address] [place] [address] Dr. Frank Hills UA RANDOM W/MICROSCOPICon BACTERIA NONE SEEN Normal NONE SEEN [facility] Comment on above: Performed By: #### L IVER, LIPID, TSH, FT3, T4 #### [facility] [address] [address] [address] Frank Hills Bilirubin Ql (U) Negative Normal NEGATIVE [facility] Comment on above: Performed By: #### L IVER, LIPID, TSH, FT3, T4 #### [facility] [address] [address] [address] Frank Hills CAST NONE SEEN Normal NONE SEEN [facility] Comment on above: Performed By: #### L IVER, LIPID, TSH, FT3, T4 #### [facility] [address] [address] [address] Frank Hills Clarity (U) CLEAR Normal CLEAR [facility] Comment on above: Performed By: #### L IVER, LIPID, TSH, FT3, T4 #### [facility] [address] [address] [address] Frank Hills Color (U) LT. YELLOW Normal YELLOW [facility] Comment on above: Performed By: #### L IVER, LIPID, TSH, FT3, T4 #### [facility] [address] [place] [address] Dr. Frank Hills Crystals LM Nom (Urine sed) NONE SEEN Normal NONE SEEN [facility] Comment on above: Performed By: #### L IVER, LIPID, TSH, FT3, T4 #### [facility] [address] [address] [address] Frank Hills Epithelial cells LM Ql (Urine sed) RARE Normal NONE SEEN /RARE [facility] Comment on above: Performed By: #### L IVER, LIPID, TSH, FT3, T4 #### [facility] [address] [place] [address] Dr. Frank Hills Glucose Ql (U) Negative Normal NEGATIVE [facility] Comment on above: Performed By: #### L IVER, LIPID, TSH, FT3, T4 #### [facility] [address] [address] [address] Frank Hills Hemoglobin Ql (U) Negative Normal NEGATIVE [facility] Comment on above: Performed By: #### L IVER, LIPID, TSH, FT3, T4 #### [facility] [address] [place] [address] Dr. Frank Hills Ketones Ql (U) Negative Normal NEGATIVE [facility] Comment on above: Performed By: #### L IVER, LIPID, TSH, FT3, T4 #### [facility] [address] [address] [address] Frank Hills LEUKOCYTES Negative Normal NEGATIVE [facility] Comment on above: Performed By: #### L IVER, LIPID, TSH, FT3, T4 #### [facility] [address] [place] [address] Dr. Frank Hills MUCOUS TRACE Abnormal NONE SEEN [facility] Comment on above: Performed By: #### L IVER, LIPID, TSH, FT3, T4 #### [facility] [address] [place] [address] Dr. Frank Hills Nitrite Ql (U) Negative Normal NEGATIVE [facility] Comment on above: Performed By: #### L IVER, LIPID, TSH, FT3, T4 #### [facility] [address] [place] [address] Dr. Frank Hills pH (U) 6.0 [pH] Normal 5-9 [facility] Comment on above: Performed By: #### L IVER, LIPID, TSH, FT3, T4 #### [facility] [address] [place] [address] Dr. Frank Hills RBC NONE SEEN Abnormal 0-2 [facility] Comment on above: Performed By: #### L IVER, LIPID, TSH, FT3, T4 #### [facility] [address] [address] [address] Frank Hills SPEC GRAVITY 1.020 Normal 1.005-<=1.025 [facility] Comment on above: Performed By: #### L IVER, LIPID, TSH, FT3, T4 #### [facility] [address] [place] [address] Dr. Frank Hills UA PROTEIN Negative Normal NEGATIVE/ TRACE [facility] Comment on above: Performed By: #### L IVER, LIPID, TSH, FT3, T4 #### [facility] [address] [address] [address] Frank Hills Urobilinogen Qn (U) 0.2 {Flaquita'U}/dL Normal 0.2 - 1. 0 [facility] Comment on above: Performed By: #### L IVER, LIPID, TSH, FT3, T4 #### [facility] [address] [address] [address] Frank Hills WBC NONE SEEN Normal NONE SEEN [facility] Comment on above: Performed By: #### L IVER, LIPID, TSH, FT3, T4 #### [facility] [address] [address] [address] Frank Hlils Ambulatory Clinical Summaryo 10-27-2021 Ambulatory Clinical Summary {[id number] Normal [facility] Patient Educationon 10-27-20 Patient Education Urology Urinary Incontinence Urinary incontinence refers to a condition in which a person is unable to control where and when to pass urine. A person with this condition will urinate when he or she does not mean to (involuntarily). What are the causes? This condition may be caused by: ? Medicines. ? Infections. ? Constipation. ? Overactive bladder muscles. ? Weak bladder muscles. ? Weak pelvic floor muscles. These muscles provide support for the bladder, intestine, and, in women, the uterus. ? Enlarged prostate in men. The prostate is a gland near the bladder. When it gets too big, it can pinch the urethra. With the urethra blocked, the bladder can weaken and lose the ability to empty properly. ? Surgery. ? Emotional factors, such as anxiety, stress, or post-traumatic stress disorder (PTSD). ? Pelvic organ prolapse. This happens in women when organs shift out of place and into the vagina. This shift can prevent the bladder and urethra from working properly. What increases the risk? The following factors may make you more likely to develop this condition: ? Older age. ? Obesity and physical inactivity. ? and childbirth. ? Menopause. ? Diseases that affect the nerves or spinal cord (neurological diseases). ? Long-term (chronic) coughing. This can increase pressure on the bladder and pelvic floor muscles. What are the signs or symptoms? Symptoms may vary depending on the type of urinary incontinence you have. They include: ? A sudden urge to urinate, but passing urine involuntarily before you can get to a bathroom (urge incontinence). ? Suddenly passing urine with any activity that forces urine to pass, such as coughing, laughing, exercise, or sneezing (stress incontinence). ? Needing to urinate often, but urinating only a small amount, or constantly dribbling urine (overflow incontinence). ? Urinating because you cannot get to the bathroom in time due to a physical disability, such as arthritis or injury, or communication and thinking problems, such as Alzheimer disease (functional incontinence). How is this diagnosed? This condition may be diagnosed based on: ? Your medical history. ? A physical exam. ? Tests, such as: ? Urine tests. ? X-rays of your kidney and bladder. ? Ultrasound. ? CT scan. ? Cystoscopy. In this procedure, a health care provider inserts a tube with a light and camera (cystoscope) through the urethra and into the bladder in order to check for problems. ? Urodynamic testing. These tests assess how well the bladder, urethra, and sphincter can store and release urine. There are different types of urodynamic tests, and they vary depending on what the test is measuring. To help diagnose your condition, your health care provider may recommend that you keep a log of when you urinate and how much you urinate. How is this treated? Treatment for this condition depends on the type of incontinence that you have and its cause. Treatment may include: ? Lifestyle changes, such as: ? Quitting smoking. ? Maintaining a healthy weight. ? Staying active. Try to get 150 minutes of moderate-intensity exercise every week. Ask your health care provider which activities are safe for you. ? Eating a healthy diet. ? Avoid high-fat foods, like fried foods. ? Avoid refined carbohydrates like white bread and white rice. ? Limit how much alcohol and caffeine you drink. ? Increase your fiber intake. Foods such as fresh fruits, vegetables, beans, and whole grains are healthy sources of fiber. ? Pelvic floor muscle exercises. ? Bladder training, such as lengthening the amount of time between bathroom breaks, or using the bathroom at regular intervals. ? Using techniques to suppress bladder urges. This can include distraction techniques or controlled breathing exercises. ? Medicines to relax the bladder muscles and prevent bladder spasms. ? Medicines to help slow or prevent the growth of a man's prostate. ? Botox injections. These can help relax the bladder muscles. ? Using pulses of electricity to help change bladder reflexes (electrical nerve stimulation). ? For women, using a medical imaging technician to prevent urine leaks. This is a small, tampon-like, disposable device that is inserted into the urethra. ? Injecting collagen or carbon beads (bulking agents) into the urinary sphincter. These can help thicken tissue and close the bladder opening. ? Surgery. Follow these instructions at home: Lifestyle ? Limit alcohol and caffeine. These can fill your bladder quickly and irritate it. ? Keep yourself clean to help prevent odors and skin damage. Ask your doctor about special skin creams and cleansers that can protect the skin from urine. ? Consider wearing pads or adult diapers. Make sure to change them regularly, and always change them right after experiencing incontinence. General instructions ? Take jxke-[id number] and prescription medicines only as (more content not included)... Normal [facility] Urology Office/Clinic Noteon 10-27-2021 Urology Office/Clinic Note Chief Complaint 6 month check w/PVR HPI Staff Danyelle is a 66 y/o female here for a 6 month check w/PVR. PVR is 52mL Dysuria: _denies Incomplete bladder emptying: _sometimes Hematuria: _denies Frequency: _denies Urgency: _denies Nocturia: _x1-2 Stream: _sprays Leaking: _sometimes Post void dripping: _sometimes Wearing pads/ Depends: _denies Urge incontinence: _denies Stress incontinence: _denies Incontinence without Sensory Awareness: _denies Abdominal pain: _denies Flank pain: _denies Sexual complaints: _ History of Present Illness reviewed last encounter. reviewed UA. Reviewed PVR. There have been no associated fever, chills, flank pain or blood in the urine. Review of Systems ROS - Provider Constitutional: denies weight loss, denies hot flashes. Eyes: denies eye problems. Gastrointestinal: denies nausea, denies vomiting. Cardiovascular: denies chest pain or angina. Integumentary: no dryness Musculoskeletal: denies musculoskeletal symptoms. ENMT: denies otolaryngeal symptoms. Respiratory: no shortness of breath. Heme/Lymph: denies easy bleeding tendency, denies easy bruising tendency. Psychiatric: no confusion, no anxiety. Genitourinary: denies vaginal discharge, denies incontinence, denies dysuria, denies hematuria, denies urinary frequency, denies amenorrhea, denies menorrhagia, denies abnormal bleeding, denies pelvic pain, denies genital sores, and denies decreased libido. Physical Exam Vitals & Measurements HT: 172 cm HT: 172.0 cm WT: 99.7 kg WT: 99.7 kg BMI: 33.7 General Appearance: alert , no acute distress, well nourished, well developed female. Genitourinary: bladder nonpalpable, no flank pain. Assessment/Plan This patient has a history of urethral stenosis and is status post urethral dilation in March 2021. Most of her cystitis symptoms have significantly improved. She has very little urgency, frequency, nocturia and no dysuria. She is had no infection since her last visit in April 2021. She does complain of occasional bouts of urgency with occasional urgency incontinence. She has a prescription for Macrobid 1 tablet every 12 hours to be used on an as-needed basis. We will see her back in our office on an as-needed basis. She has been instructed to contact our office if she develops recurrent infections or other issues related to her urinary tract. 1. Other chronic cystitis without hematuria (N30.20: Other chronic cystitis without hematuria) pt denies any UTI's. PVR today 52ml. Will send Pt with Cipro 14 tabs with 1 refill just incase she feels an infection coming on. 2. Nocturia (R35.1: Nocturia) mild sx, 1-2x intermittent 3. 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 Pt states that since the procedure she is not having any urinary issues. She feels like she is emptying well now and UA is clear for any infections. 4. Post-void dribbling (N39.43: Post-void dribbling) pt voices a period 1x a week that lasts for about 5 days and then clears up, this has been going on a couple times since the last encounter. Pt states that its intermittent, does not notice any time throughout the day that it comes on or gets better. Pt is to take a ABX pill when this comes on. Pt will be PRN at this time. 5. Urethral syndrome (N34.3: Urethral syndrome, unspecified) Significant improvement following urethral dilation. Orders: Measure Post Void residual urine and/or bladder capacity by US- non-imaging 92442 Urnls Dip Stick Auto w/o Microscopy POC 25818 I have reviewed the previous health record information and history for this patient from Dr. Ramos Follow-up With When Contact Information Richard Leal MD, Maximo Dhaliwal, URO Only if needed [facility] [address] [place] [address]- Additional Instructions: Patient Education Urinary Incontinence I, Snow Lundberg, personally scribed for Dr. Ramos on 10/27/2021 11:12:17. . Documentation recorded by the scribe, Snow Lundberg, accurately reflects the services(s) I performed and decisions made by me. Authenticated by Dr. Ramos on 10/27/2021 11:15:55. Problem List/Past Medical History Ongoing Cellulitis of arm Cellulitis of axilla, left Connective tissue disease, undifferentiated Diverticulosis Dysuria Encounter for screening colonoscopy for [id number] patient Hemifacial spasm History of shingles Hyperlipidemia Hypertension Hyperthyroidism Insomnia Nocturia Osteoarthritis Polyneuropathy Post-void dribbling Raynaud phenomenon Recurrent UTI Rosacea Urethral stricture Historical No qualifying data Procedure/Surgical History Hip replacement (12/13/2016), Fusion of lumbar spine (12/06/2011), Ablation (08/18/2005), Excision of sebaceous cyst (08/27/1999), Arthroscopy of knee, Dilatation and curettage, Excision of ganglion cyst, E (more content not included)... Normal [facility] Comment on above: Result Comment: Elec tronically Signed By: Richard Leal MD, Maximo Dhaliwal\.br\Date and Time Signed: 10/27/21 11:16 EST\.br\Electronically Co-Signed By: Snow Lundberg MA\.br\Date and Time Co-Signed: 10/27/21 11:12 EST Ambulatory Clinical Summaryo n 04-23-2021 Ambulatory Clinical Summary {[id number] Normal [facility] Patient Educationon 04-23-20 21 Patient Education Urinary Frequency The number of times a normal person urinates depends upon how much liquid they take in and how much liquid they are losing. If the temperature is hot and there is high humidity then the person will sweat more and usually breathe a little more frequently. These factors decrease the amount of frequency of urination that would be considered normal. The amount you drink is easily determined, but the amount of fluid lost is sometimes more difficult to calculate. Fluid is lost in two ways: ? Sensible fluid loss is usually measured by the amount of urine that you get rid of. Losses of fluid can also occur with diarrhea. ? Insensible fluid loss is more difficult to measure. It is caused by evaporation. Insensible loss of fluid occurs through breathing and sweating. It usually ranges from a little less than a quart to a little more than a quart of fluid a day. In normal temperatures and activity levels the average person may urinate 4 to 7 times in a 24-hour period. Needing to urinate more often than that could indicate a problem. If one urinates 4 to 7 times in 24 hours and has large volumes each time, that could indicate a different problem from one who urinates 4 to 7 times a day and has small volumes. The time of urinating is also an important. Most urinating should be done during the waking hours. Getting up at night to urinate frequently can indicate some problems. CAUSES The bladder is the organ in your lower abdomen that holds urine. Like a balloon, it swells some as it fills up. Your nerves sense this and tell you it is time to head for the bathroom. There are a number of reasons that you might feel the need to urinate more often than usual. They include: ? Urinary tract infection. This is usually associated with other signs such as burning when you urinate. ? In men, problems with the prostate (a walnut-size gland that is located near the tube that carries urine out of your body). There are two reasons why the prostate can cause an increased frequency of urination: ? An enlarged prostate that does not let the bladder empty well. If the bladder only half empties when you urinate then it only has half the capacity to fill before you have to urinate again. ? The nerves in the bladder become more hypersensitive with an increased size of the prostate even if the bladder empties completely. ? . ? Obesity. Excess weight is more likely to cause a problem for women more than for men. ? Bladder stones or other bladder problems. ? Caffeine. ? Alcohol. ? Medications. For example, drugs that help the body get rid of extra fluid (diuretics ) increase urine production. Some other medicines must be taken with lots of fluids. ? Muscle or nerve weakness. This might be the result of a spinal cord injury, a stroke, multiple sclerosis or Parkinson's disease. ? Long-standing diabetes can decrease the sensation of the bladder. This loss of sensation makes it harder to sense the bladder needs to be emptied. Over a period of years the bladder is stretched out by constant overfilling. This weakens the bladder muscles so that the bladder does not empty well and has less capacity to fill with new urine. ? Interstitial cystitis (also called painful bladder syndrome). This condition develops because the tissues that line the insider of the bladder are inflamed (inflammation is the body's way of reacting to injury or infection). It causes pain and frequent urination. It occurs in women more often than in men. DIAGNOSIS ? To decide what might be causing your urinary frequency, your healthcare provider will probably: ? Ask about symptoms you have noticed. ? Ask about your overall health. This will include questions about any medications you are taking. ? Do a physical examination. ? Order some tests. These might include: ? A blood test to check for diabetes or other health issues that could be contributing to the problem. ? Urine testing. This could measure the flow of urine and the pressure on the bladder. ? A test of your neurological system (the brain, spinal cord and nerves). This is the system that senses the need to urinate. ? A bladder test to check whether it is emptying completely when you urinate. ? Cytoscopy. This test uses a thin tube with a tiny camera on it. It offers a look inside your urethra and bladder to see if there are problems. ? Imaging tests. You might be given a contrast dye and then asked to urinate. X-rays are taken to see how your bladder is working. TREATMENT It is important for you to be evaluated to determine if the amount or frequency that you have is unusual or abnormal. If it is found to be abnormal the cause should be determined and this can usually be found out easily. Depending upon the cause treatment could include medication, stimulation of the nerves, or surgery. There are not too many things that you can do as an individual to change your urinary frequency. It is (more content not included)... Normal [facility] Urology Office/Clinic Noteon 04-23-2021 Urology Office/Clinic Note Chief Complaint 6 wk f/u This 65-year-old female has a history of urethral stenosis. She underwent urethral dilation on 03/12/2021. Since that time she is noted only minor improvement of her overall voiding pattern. She does not have any new infections since her last visit which was the primary reason for the urethral dilation. HPI Staff Pt is here for a 6 wk f/u to a CYsto/UD done 03/12/2021. Pt states that since the dilation she has not noticed a difference in emptying. Pt denies any infections since the UD. Pt states that she has intermittent sharp pain in the vaginal area, pt is unsure what this could be from. She said it only lasts for a little while and then subsided, pt states that this has been going on for a month. Dysuria: no pain or burning Incomplete bladder emptying: pt is not noticing any difference Hematuria: denies any blood in urine Frequency: voiding every 2-3 hours Urgency: mild sx Nocturia: 2-4x a night = this is unchanged Stream: average stream, no hesitation Post void dripping: none Wearing pads/ Depends: _ Urge incontinence: can make it to the bathroom Stress incontinence: occasionally Incontinence without Sensory Awareness: none Abdominal pain: none History of Present Illness Reviewed UA. There have been no associated fever, chills, flank pain or blood in the urine. Pt. denies any pain/burning with urination at this time. Review of Systems PHQ Score Initial Depression Screen Score: 0 ROS - Provider Constitutional: denies weight loss, denies hot flashes. Eyes: denies eye problems. Gastrointestinal: denies nausea, denies vomiting. Cardiovascular: denies chest pain or angina. Integumentary: no dryness Musculoskeletal: denies musculoskeletal symptoms. ENMT: denies otolaryngeal symptoms. Respiratory: no shortness of breath. Heme/Lymph: denies easy bleeding tendency, denies easy bruising tendency. Psychiatric: no confusion, no anxiety. Genitourinary: denies vaginal discharge, denies incontinence, denies dysuria, denies hematuria, moderate urinary frequency, denies amenorrhea, denies menorrhagia, denies abnormal bleeding, denies pelvic pain, denies genital sores, and denies decreased libido. Physical Exam Vitals & Measurements HR: 68(Peripheral) RR: 18 BP: 141/95 HT: 172.0 cm HT: 172 cm WT: 99.7 kg WT: 99.7 kg BMI: 33.7 General Appearance: alert , no acute distress, well nourished, well developed female. Genitourinary: bladder nonpalpable, no flank pain. Assessment/Plan This patient is noted some slight improvement after the urethral dilation. She is not had an infection since her last visit and hopefully dilation will limit the number of infections that she gets in the next year. We will plan to see her back in the office in 6 months and have a PVR at that time. I reviewed the test results with the patient today we discussed treatment options including continuing medication management with antibiotics. At present we decided to proceed with intermittent antibiotic usage. She will contact her office if we can be of further assistance. 1. Recurrent UTI (N39.0: Urinary tract infection, site not specified) UA today shows no signs of infection. Pt. is doing well overall w/ urination at this time. All questions/concerns were discussed. Pt. to call the office if sheencounters any issues prior. Pt. acknowledges understanding. 2. Nocturia (R35.1: Nocturia) 2-4x/night. 3. Urgency of urination (R39.15: Urgency of urination) Mild. 4. Other urethral stricture, female (N35.82: Other urethral stricture, female) S/p Cysto/UD 03/12/21. Pt. states sxs of dysuria have decreased since the procedure. Orders: cephalexin, 500 mg = 1 cap(s), Oral, Daily, take 1 tab one day prior to the procedure and take 1 tab after the procedure, # 2 cap(s), Refills(s) 0, Pharmacy: [facility]/pharmacy #[id number], 172.7, cm, 02/24/21 8:22:00 EDT, Height/Length Dosing, 99.8, kg, 02/24/21 8:21:00 EDT... Urnls Dip Stick Auto w/o Microscopy POC 33056 I have reviewed the previous health record information and history for this pt. from Dr. Ramos. Follow-up With When Contact Information Richard Leal MD, Maximo Dhaliwal, URO [address] [place] [id number]- Additional Instructions: 6mos. pvr Patient Education Urinary Frequency I, Indu Gonzalez , personally scribed for Dr. Ramos on 04/23/2021 11:40:24. . Documentation recorded by the scribe, Indu Gonzalez, accurately reflects the services(s) I performed and decisions made by me. Authenticated by Dr. Ramos on 04/23/2021 12:20:53. Problem List/Past Medical History Ongoing Cellulitis of arm Cellulitis of axilla, left Connective tissue disease, undifferentiated Diverticulosis Dysuria Encounter for screening colonoscopy for [id number] patient Hemifacial spasm History of shingles Hyperlipidemia Hypertension Hyperthyroidism Insomnia Osteoarthritis Polyneuropathy (more content not included)... Normal [facility] Comment on above: Result Comment: Elec tronically Signed By: Maximo Ramos Jr., MD\.br\Date and Time Signed: 04/23/21 12:21 EDT\.br\Electronically Co-Signed By: Indu oGnzalez MA\.br\Date and Time Co-Signed: 04/23/21 11:40 EDT Coding Summary.on 03-16-2021 Coding Summary. CD:[id number] Gh 0bWw+PGhlYWQ+QP5OLDZsV 48blFAutI8MR4bHAT9DPIN SJKXUPC9FTW1anNK5RDuxE 2VybiAv BgxyqJFzTX42HVi5LHQ0aI cjUCyeeG7peWYrH0k3HuAi PF93rR07GUywNCMtZtZ5Kv ZpbjsgbWFy T9vyBtZrrFTcWzl+PHRhYm xlIHdpZHRoPScxMDAlJyBz ySpoGV6uJv6lLFFzQMOxnQ xhcHNlOiBj c0guRPAcFAwhUA0lmZphA5 SvnMC1HSKch4k9Ty07aBS+ CQEuAOE4yXvmENzah335Ye Tgg8gwNVQ6 gLJiRWhcHTS2T19ri6D5FE DyPTFqKKR1lZP7oP7pcXla gjsfI5MjrQIrRvL8IJQ0uF TauG0ygTgq rfaowV3lBkk+D47AGX7ZCA XTTO6XTzd3M8PuLdzqqKL+ RP30ZJIvXE51pTPziAPse7 wbmSt8DqQd MZKrKCK8tPauWVvso4YlIJ UdL09ujBLwk0H1FCErpBrv uBPmHhTutNY6fJ0dQArreu vev8raabez Ppjle7lpci23mI91C96zRI muGBEiWQU8ATTcUBDaaIzp oi1pxA5gFo4+BPyol7zno6 lhfWd0WeLc TNYevbQinZfnQGV5a7HgJz 10K4UudSdis1ZvCqf8ld58 eMBbq3E9yMX8WUseMJHjsW 5yBTmlExB9 BANcAbMajS36sLHiTMwiPk 1mwXrbuXseSB3zXWPepups MPDveF2sZDZhfRNwqZplHQ 4wNTBpbjtm e585FgQpKEV5XANwwUSrN9 QecA3tAuRjUCLlDOZgM5Ne gGHeOJgwH058PMcrZbQ4TK MddrGzN8Mz LYDafZnfBeR6t9Z2Rp2Iy0 TiojkhGBW6YCobIVM2FdOi UxPkVbJ0O4GzIcv0UDOhgQ kiXP6tI5Xn RMLqqazrjojyhRT3HELiUY ZguU12cIHiHIxdDw9ci6O5 v450AWZcDNNuzN07Ml5xlA ogMTBwdCBU uR6uejuev6pqiaanGfQrKA RyHDe5YEy4VOHbnKgzFtEb NMH9ZmD7QMX9bOGosU0syM ccibcdhG4d Oyc+J01qnE8lUFX6HCY5id okTTRtbpEsFG23TS49D7Xt PjwvdGFibGU+PGRpdiBzdH asRE2eMlWe i8pqh1QrLXmvS0XoVJMwQH ltKbx9TRGcFPY7hVA5lO4u KUFgLDrwz0T4rGS5E6Lfln Uejx5ca3ib MSFjARcvC83egQGnl2O7DD YtiLZ8HJEvnZrlOfWvpV14 Oyc+NKTshVwzk2HtXmgoc6 igd6eesDh4 KlUqAFUgsjEhzLdvXCF4n0 PiGd59T86qWMbyGCBzQUSx VMVtFBNwvOtylw8rkU1uJu 8+PGNvbCB3 gDU2lQ4hBZMyBiW6DCtsX9 54FjNcvWMgZxngs3bqx5yv qAm4OhAkQVIxwaOaoRgePJ J3a1QlEi11 R06zHHfcMFAiQNFbGSHpVZ FtrDihtk4pfP0bNm2+PC9j f2wizp05tR66rZL+PHRkIH I1qMdwRQlr UFXioC4kCOnqTnE8PUMmPn ZhpE09hPAzQMjvAy2ygGfq lUbpUS3hTUNhbkyqz469Sb Lth0tdVUFi pYDhRMxkQGJ2K86kv0F6BZ KnSSBcBQC5jGA1gX2zrKtw bjogbGVmdDsgdmVydGljYW tpAMdiW787 IHRvcDsnPlBhdGllbnQgTm KfOZs9T3EdQag9NBDcwGzu NI0sgSBoGHfcIr0ftNqdlW usCA6kNLZh wtjwk270ZhAov4xsCRAkgI ViFScuQDO4K39nl2C9YSAk DUSyHNK7gOQ9iK9gyCsulz ogbGVmdDsg lxVnnTtaENyfUCszD938EU RvcDsnPkJpcnRoIERhdGU6 JS62SY96cZTxt4P8nRT4W5 BhZGRpbmct njhpdQY7PKNqSJPgzO99Me 7ssCgjPy7zVXMqYCA7IDCi dGMyL6RojU0aEwAfGCMcYD AuE9UhfKKh XAwtC856NVtsYcI3QWAiaf TwI0WeEFNlrEtmWnR1r7H6 Hj3GO1M6ED52GQ16dQIun5 W8kWK0O8Hb ORXjwjorbcvsnCC8OWVtSF RbkO17Am9ggTfsTd9dQZOv UJM7IGDsvIRoA7SazC7hYz AjMDAwMDAw C6YgoDSdLZvhL351IRlqDm P3LFWyefItN9NzELFpaWib XfZ8b9T4Os3XMLt9HX45MU 44vRZon1B7 mLT8G3AuRHTyqwgcpbpgxN D9KTXeMVAonN97Si0enIme Aj2xDEPmYXO4UASnkTRuP2 UoqW8dLrEx OSBrTQCqM5YwzAWfKNgbX2 56MTbdEuG4NHEikqLiP2Qp EGYcqJjmSaA9c9D1Wp9MXZ VlHT68IMX6 sHR0YC24FF96Y9CkFqmscR FibGU+PHRhYmxlIHdpZHRo TRvlPQPsBmZejWoaPM0dHq 9yZGVyLWNv iUwiuYYiKkHem1qqLWYmQT hdAZ5zlJzkG8FscPY2JGRu z2k3Oz77V76bX3RagQA+PG LqzHI9oGP0 dA8oSkDyKyD5VYtnN832Zu GtaKBhVhilg8jzv1innEv7 GlM4JXVzcmYbdQueVUH6g4 MgOy62J01h IHdpZHRoPSIxNSUiIHZhbG ragi9ydZ5pNg3+PGNvbCB3 bXK6kX3gDzTiPeS0PJxaT8 49InRvcCIv Myrla0uzq0xpnAx9MzHzJL DupqWsoNfyMMD1q6TkAf10 O3YmaNxzw7GcFmz5nn34tG Iyq6O5vWA1 L6GjANYvespuuZLkiHsbFO 0oGZJkabdiCNEixU5zOKJy L2e7WnNfOkS7VKatA0Xlgd B5PNFxiTFq XSszFKS9R07sr7E8IVZySV MiRLE0iOR0lX9ymXcxasei bGVmdDsgdmVydGljYWwtYW wiQ168VKHv wHrnYXQdfR0eVLYdaEEmiP zvHB6qDOOpeezsGqNOK9ee WAGOIMnRYWs1Y6HoGsm1MM TvzIvlWI9q bQGwHPapEg6tjHikxLmqLK 0lLWQplrpjMMIxbJ9oFAGc bFNkqOpeUG1kWWMvrjkbc2 30XtOwQAQ2 HCMwkXLeQ1SdcB6tMrVeDR QnREAnS3VcoQEzINchI502 HQarGtR6MNQosxNqQ5VzYR FsaWduOiB0 h7J6Jf8dMB7dBb8pGKMgKW 23JA38pAZnk5V4hLQ9J3Eq CDPhcmerccbpuUK7SQXyGS KlfH90yQGn MGwiLz1lf7C8d841SHCeNX TgwJ80Fp2flVbaRVObzFJC nJ5lqogsj2woqtmtRqTvUX BsMDm5SXm1 ATXrsXpyHcNnBSS9GlY0SA R6yWXhnE8veHvupntswX8z Oyc+EihaMYLiblD3M8RpDv o8YIOtoXaz QM6lhHPdJEbqXz1ztLmncW obEP9fEZAtvuvbTPWzmR7n IBImjDImvVjdAJ6kNTGuyh soe338BiJb SJN0MTKyfCYtG4JihY6wPy SyRPDvDASwJ0QilIZrIIbw R247AIzbHoZ8JPRlayCsY3 FsLWFsaWdu HnL6m0F2Vd7PMS1deYO6D4 BhRlm2OOPvzNppFU3wdUPc ZDuiFq0gcCdxnOlwUN3hNQ BpbjtwYWRk hZ1hPQLeqDPmsZfcZM1yDG Xfxzyba413EiZeZPW0BNIr bORaW2ChlA6sMxUuQRFjBN PmT5WqgRAv BKgvB477ZMndIfG2XBRmjr BbS8FaAUTzcZhjHhL5h6S6 Zz8XcQWrCYLpTC23KD53GT 54C9LvZtra dGFibGU+PHRhYmxlIHdpZH BjTSkxKNKoXtPyyCbzRR8n Is0sDLHpLRJdxTjavKQoXh Ejw2suSKSx BVadQG2bmXggH9VbwPZ8YR Wra5h8Oi17D00oJ8FzqRV+ ZVBueMZ2cGA2fJ7yQqFdRj I6QMjlX064 GuQzlHGjRmqtp6uva8dhtR z3KgEdYKGpyiVtkGmtFZZ6 y9XkJz25R22yBKtiNDRyWE IyMCUiIHZh fBjfko4zxI9qZn0+PGNvbC E2pVO0jA8uXqJkSwC9WNnz Z284JyBjpFZtBgleD92vN5 JvdXA+PHRy Xqe2BSZxzVpzPN2iaLFsEI hhTb7sYCX2LkFyYpEdPThb X4ExWTAhlniadcsqjCZ8LQ DkMXIopP52 Gq8zcUvpLf2cTGDiMLC5BF UnqBOwD9UfrZ9pPtTvHFGe LLUwA6RhwEOqOPwhY100XK tpPuG6CZHz obTvC3NyUJRxcWgoNaK8z5 F5Ri9BfVvwjXYbYI2tDlBr SZs7D5GtKzl4IMMweFgbAK 0ncGFkZGlu Ra8zkVtpkMrbCL9xNNJrkt hea502MwBnn5xfRXEtvFVg PAqbDWO7T10ra1V3YHUhBQ ZsVCT8xTC6 mO6gbHhijcaiyTOrqMndsh StrLmqNAqiXVygQ961IUPr aXnrDaSWLyq9K1NgHyj3BE LjcBoiKC8a yQJeJRxrZy0ozQfggKztTL 4aISZilkcos307KyOgb1yi TZHfgJKoPGkrMTN9M93vu1 L0HLNuOXIn OLL6wHM4uA2txFkiqnsbrF VmdDsgdmVydGljYWwtYWxp M360WXUdpMksTp6AWgo7D2 LaPaq0FZHk yLvgWR3xuCYpHCgqBy3caY tpySasOH9qUYQzccibh607 PgIkr3xsCIHtjCOvKRanRY K8N37zh4P2 DFAoGLVlLMD8vEL9cU6rtO lnbjogbGVmdDsgdmVydGlj SZinXUpjN488ZETrpWjiKt BheWVyOjwv dGQ+UP87ir29K0DiVpjuUw o3RPLcEQS2lLR3lW4tVUQu YLgjq5D7gYD4V6NebqFqrf 7au9aqOAJx ZTog (more content not included)... Normal [facility] Consent for Procedure/Surger yon 03-16-2021 Consent for Procedure/Surgery [id number]#1. 00CD:127 Normal [facility] IntraOperative Documentson 0 03-16-2021 IntraOperative Documents [id number]#1. 00CD:127 [facility] Consent for Treatmenton 05-0 Consent for Treatment [id number] 0CD:127 [facility] Main OR Intraoperative Recor don 03-12-2021 Main OR Intraoperative Record IntraOp Document Type FTURO Summary Primary Physician: Maximo Ramos Jr., MD Finalized Date/Time: 03/12/21 13:52:16 Pt. Name: DANYELLE HASKINS/Sex: 1955 Female Med Rec #: [id number] Physician: Maximo Ramos Jr., MD Financial #: [id number] Pt. Type: O Room/Bed: / Admit/Disch: 03/12/21 12:55:35 - Institution: Case Times FTURO Entry 1 Patient Times In Room 03/12/21 13:44:00 Out Room 03/12/21 13:52:00 Procedure Times Start 03/12/21 13:48:00 Stop 03/12/21 13:50:00 Anesthesia Times Last Modified By: Savanna Azevedo RN 03/12/21 13:52:11 Case Attendance FTURO Entry 1 Entry 2 Entry 3 Case Attendee Richard Leal MD, Maximo Hines CST, Savanna Azevedo RN, Savanna Solis Role Performed Surgeon - Primary Scrub - Primary Metal Hanging Helper - Primary Time In 03/12/21 13:44:00 03/12/21 13:44:00 03/12/21 13:44:00 Time Out 03/12/21 13:52:00 03/12/21 13:52:00 03/12/21 13:52:00 Procedure CYSTOSCOPY LOCAL WITH CYSTOSCOPY LOCAL WITH CYSTOSCOPY LOCAL WITH URETHRAL DILATION(.) URETHRAL DILATION(.) URETHRAL DILATION(.) Comments Last Modified By: Savanna Azevedo RN, RN, Savanna Kincaid RN 03/12/21 13:52:13 03/12/21 13:52:13 03/12/21 13:52:13 Surgical Procedures FTURO Entry 1 Procedure Description Procedure CYSTOSCOPY LOCAL WITH Modifiers . URETHRAL DILATION Surgeon Description CYSTOSCOPY LOCAL WITH URETHRAL DILATION Primary Procedure Yes Primary Surgeon Maximo Ramos Jr., MD Start 03/12/21 13:48:00 Stop 03/12/21 13:50:00 Anesthesia Type Local Surgical Service Urology Wound Class 2 - Clean-Contaminated Last Modified By: Savanna Azevedo RN 03/12/21 13:51:00 General Case Data FTURO Pre-Care Text: Classifies surgical wound, implements aseptic technique, initiates traffic control Entry 1 Case Information OR URO 1 FT Case Level None Wound Class 2 - Clean-Contaminated Specialty Urology Preop Diagnosis RECURRENT URI, DYSURIA, Postop Same As Preop Yes NOCTURIA, POOR URINARY STREAM Postop Diagnosis RECURRENT URI, DYSURIA, Outcomes Met? Yes NOCTURIA, POOR URINARY STREAM Last Modified By: Savanna Azevedo RN 03/12/21 13:04:57 Post-Care Text: The patient is free from signs and symptoms of infection EU IntraOp - FTURO Pre-Care Text: Implements protective measures prior to operative or invasive procedure, confirms identity before the operative or invasive procedure, verifies operative procedure, surgical site, and laterality Entry 1 EU Perioperative Protocols Procedure(s) CYSTOSCOPY LOCAL WITH Patient Identity Birthday, ID Band URETHRAL DILATION(.) Verified (select at Check, Patient least 2): Participation Consents / H and P HandP, Surgery/Procedure Operative Site N/A Verified Consent Marking Verified Surgical Site Yes Laterality Verified Yes Verified Procedure Verified Yes Correct Patient Yes Position Verified Availability Equipment, Medication Time Out Maximo Ramos Jr., MD, Verified (If Participants Flora FRANKLIN, Savanna Applicable) Jolly Caraballo RN, Kimberly Y Time Out Complete 03/12/21 13:46:00 Allergies Reviewed? Yes Allergies Reviewed Self/Patient With Body Position Frog Legged Prep Area PERINEUM Prep Agents Betadine Solution Skin. Condition Dry, Warm, Unable to Description UNABLE TO VISUALIZE DUE Visualize TO PATIENT PARTIALLY CLOTHED Additional Other (See Comment) Specimens Collected Vitals - EU Blood Pressure 171/102 Pulse 89 bpm Respirations 18 br/min SPO2 EBL 0 IandO - EU Total Intake 0 mL Total Output 0 mL Outcomes Met? Yes Last Modified By: Savanna Azevedo RN 03/12/21 13:47:09 Post-Care Text: The patient is free from signs and symptoms of injury caused by extraneous objects Sign Out FTURO Entry 1 Before Patient Leaves OR Nurse verbally Yes Nurse verbally Yes confirms with the confirms with the team the name of team that the procedure(s) instrument, sponge, recorded and needle counts are correct (or N/A) Nurse verbally n/a Nurse verbally Yes confirms with the confirms with the team how the team whether there specimen is labeled are any equipment (including patient problems to be name), if applicable addressed Sign Out Complete 03/12/21 13:50:00 Last Modified By: Savanna Azevedo RN 03/12/21 13:50:59 Case Comments Finalized By: Savanna Azevedo RN Document Signatures Signed By: Savanna Azevedo RN 03/12/21 13:52 Normal [facility] Main OR Preoperative Recordo n 03-12-2021 Main OR Preoperative Record Holding Area Document Type FTURO Summary Primary Physician: Maximo Ramos Jr., MD Finalized Date/Time: 03/12/21 13:23:03 Pt. Name: DANYELLE HASKINS/Sex: 1955 Female Med Rec #: [id number] Physician: Maximo Ramos Jr., MD Financial #: [id number] Pt. Type: O Room/Bed: / Admit/Disch: 03/12/21 12:55:35 - Institution: Case Times Holding FTURO Pre-Care Text: Verifies consent for planned procedure, identifies individual values and wishes concerning care, includes family members in perioperative teaching Secures patient's records' belongings, and valuables, maintains patient's dignity and privacy, and maintains patient confidentiality Entry 1 In Holding 03/12/21 13:05:00 Outcomes Met? Yes Last Modified By: Joanne Jordan LPN 03/12/21 13:05:14 Post-Care Text: The patient participates in decisions affecting his or her perioperative plan of care The patient's right to privacy is maintained Surgery Checklist FTURO Entry 1 Patient Birthday, ID Band Procedure History and Physical, Identification: Check, Patient Verification: Surgical Consent, With Participation Patient NPO after Midnight: n/a Personal Items: Cataract Lens Implant, Glasses, Jewelry Personal Items watch Limitations: Uses cane Comment: Complaints of Pain: No Pain Comment: Burning, started yesterday Skin Integrity Unable to Visualize Vitals - EU Blood Pressure 171/102 Pulse 89 bpm Respirations 18 br/min SPO2 RN Reviewed Yes Last Modified By: Savanna Azevedo RN 03/12/21 13:23:01 General Comments: Temp. 35.9 Finalized By: Savanna Azevedo RN Document Signatures Signed By: Joanne Jordan LPN 03/12/21 13:08 Joanne Jordan LPN 03/12/21 13:08 Savanna Azevedo RN 03/12/21 13:23 Normal [facility] Operative Reporton Operative Report Patient: DANYELLE HASKINS Age: 65 years Sex: Female : 1955 Associated Diagnoses: None Author: Richard Leal MD, Maximo Dhaliwal Procedure Operative Information Details: Date/ Time: 03/12/2021 13:52:00. Pre-Op Dx: Hx of UTI's - Z87.440, Urethral Stricture - Female Post Trauma Urethral Stricture Female - N35.028. Post-Op Dx: Same. Anesthesia Type: Local. Procedure: Local Cystoscopy with Urethral Dilation. Complications: None. Risks/Benefits/Informe d Consent: Surgical risks, benefits, details of the procedure have been explained to the patient, Full informed consent has been obtained. Intraoperative Information Prepped: Patient is brought back to the endoscopy suite, Patient is placed in modified dorso/lithotomy position, Patient prepped in the usual fashion with Betadine solution, 2% Xylocaine Jelly is placed per Urethra, After waiting several minutes the Cystoscope is introduced. The Urethra is: Tight. The Bladder is: Normal, Trabeculated None (0). The ureteral orifices: Show efflux of clear urine. The Urethra was dilated to: 28 Bahamian w/ sounds. Devices Implanted: None. Removal: Cystoscope is removed, The patient tolerated it well. Postoperative Information Discharge: Patient is discharged home with antibiotic coverage, Follow up arranged. [facility] Comment on above: Result Comment: Elec tronically Signed By: Richard Leal MD, Maximo Schaffer.mann\Date and Time Signed: 03/12/21 13:53 EDT LARGE JOINT/BURSA INJECTION AND/OR ASPIRATION: R kneeOrdered By: New Mcclure on 03-11-2021 New Mcclure MD 03/12/2021 2:21 PM LARGE JOINT/BURSA INJECTION AND/OR ASPIRATION: R knee Date/Time: 03/11/2021 1:30 PM Supporting Documentation Indications: pain Procedure Details: Location: knee - R knee Local Anesthetic: ethyl chloride (cold spray) Needle size: 22 G Medication Verification: I have personally verified and performed the final check of the medication(s) used in this procedure prior to administration. The following items were included during the verification process for medication(s) administered: drug name, strength, volume, expiration, physical integrity and appearance of the medication(s). Medications administered: 5 mL lidocaine 1% (PF) 1 %; 1 mL triamcinolone 40 MG/ML Patient tolerance: patient tolerated the procedure well with no immediate complications The patient was prepped with Betadine. [facility] RAD - Ultrasound Reporton RAD - Ultrasound Report [id number] 0CD:127 Normal [facility] Physician Referralon 021 Physician Referral [id number]#1.00 CD:127 [facility] Ambulatory Clinical Summaryo n 02-24-2021 Ambulatory Clinical Summary {[id number]}CD:[id number] [facility] Patient Educationon 02-25-20 21 Patient Education Urinary Tract Infection Urinary tract infections (UTIs) can develop anywhere along your urinary tract. Your urinary tract is your body's drainage system for removing wastes and extra water. Your urinary tract includes two kidneys, two ureters, a bladder, and a urethra. Your kidneys are a pair of bennett-shaped organs. Each kidney is about the size of your fist. They are located below your ribs, one on each side of your spine. CAUSES Infections are caused by microbes, which are microscopic organisms, including fungi, viruses, and bacteria. These organisms are so small that they can only be seen through a microscope. Bacteria are the microbes that most commonly cause UTIs. SYMPTOMS Symptoms of UTIs may vary by age and gender of the patient and by the location of the infection. Symptoms in young women typically include a frequent and intense urge to urinate and a painful, burning feeling in the bladder or urethra during urination. Older women and men are more likely to be tired, shaky, and weak and have muscle aches and abdominal pain. A fever may mean the infection is in your kidneys. Other symptoms of a kidney infection include pain in your back or sides below the ribs, nausea, and vomiting. DIAGNOSIS To diagnose a UTI, your caregiver will ask you about your symptoms. Your caregiver also will ask to provide a urine sample. The urine sample will be tested for bacteria and white blood cells. White blood cells are made by your body to help fight infection. TREATMENT Typically, UTIs can be treated with medication. Because most UTIs are caused by a bacterial infection, they usually can be treated with the use of antibiotics. The choice of antibiotic and length of treatment depend on your symptoms and the type of bacteria causing your infection. HOME CARE INSTRUCTIONS ? If you were prescribed antibiotics, take them exactly as your caregiver instructs you. Finish the medication even if you feel better after you have only taken some of the medication. ? Drink enough water and fluids to keep your urine clear or pale yellow. ? Avoid caffeine, tea, and carbonated beverages. They tend to irritate your bladder. ? Empty your bladder often. Avoid holding urine for long periods of time. ? Empty your bladder before and after sexual intercourse. ? After a bowel movement, women should cleanse from front to back. Use each tissue only once. SEEK MEDICAL CARE IF: ? You have back pain. ? You develop a fever. ? Your symptoms do not begin to resolve within 3 days. SEEK IMMEDIATE MEDICAL CARE IF: ? You have severe back pain or lower abdominal pain. ? You develop chills. ? You have nausea or vomiting. ? You have continued burning or discomfort with urination. MAKE SURE YOU: ? Understand these instructions. ? Will watch your condition. ? Will get help right away if you are not doing well or get worse. Document Released: 08/03/2006 Document Revised: 04/24/2013 Document Reviewed: 12/01/2012 ExitCare? Patient Information ?2013 [employer]. [facility] Urology Office/Clinic Noteon 02-24-2021 Urology Office/Clinic Note Chief Complaint New patient recurring UTI sxs This patient is a 65-year-old female with a history of recurrent urinary tract infections. She was recurrent infections. She is been treated several times with oral antibiotics for symptoms of dysuria frequency and urgency continue to recur. She is here today to discuss treatment options to establish urologic care. HPI Staff New patient Danyelle is a 65 y.o. female here for recurring UTI sxs. Last culture 01/15/21 is negative. She has burning with urination. Three episodes since December. She does not have a history of UTIs. Denies family hx of bladder cancer. Dysuria: Yes Incomplete bladder emptying: On occasion Hematuria: Denies Frequency: Varies. 6-12 x a day Urgency: Since December Nocturia: Varies. 1-4 x a night Stream: Varies. She does have some stop/go Leaking: Yes since December Post void dripping: Denies Wearing pads/ Depends: She wears a liner as a precaution Urge incontinence: Denies Stress incontinence: Denies Incontinence without Sensory Awareness: Denies Abdominal pain: Denies Flank pain: Chronic arthritic pain Sexual complaints: _ History of Present Illness Reviewed UA, referral, and new pt. paper works. There have been no associated fever, chills, flank pain or blood in the urine. Pt. denies any pain/burning with urination at this time. Review of Systems PHQ Score Initial Depression Screen Score: 2 ROS - Provider Constitutional: denies weight loss, denies hot flashes. Eyes: denies eye problems. Gastrointestinal: denies nausea, denies vomiting. Cardiovascular: denies chest pain or angina. Integumentary: no dryness Musculoskeletal: denies musculoskeletal symptoms. ENMT: denies otolaryngeal symptoms. Respiratory: no shortness of breath. Heme/Lymph: denies easy bleeding tendency, denies easy bruising tendency. Psychiatric: no confusion, no anxiety. Genitourinary: denies vaginal discharge, mild incontinence, moderate dysuria, denies hematuria, moderate urinary frequency, denies amenorrhea, denies menorrhagia, denies abnormal bleeding, denies pelvic pain, denies genital sores, and denies decreased libido. Physical Exam Vitals & Measurements HR: 81(Peripheral) BP: 142/87 HT: 172.72 cm HT: 172.7 cm WT: 99.79 kg WT: 99.8 kg BMI: 33.45 General Appearance: alert , no acute distress, well nourished, well developed female. Head: normocephalic . Eyes: normal orbit and globe. ENMT: normal examination of external ears. Chest: Lungs CTA, respirations non labored . Cardiovascular: regular rate and rhythm. Abdomen: soft, non distended, no tenderness, no mass or organomegaly, no hernia. Genitourinary: bladder nonpalpable, no flank tenderness. Lymph Nodes: unremarkable palpation of the cervical area. Skin: warm, dry, no bruising. Psychiatric: cooperative, affect appropriate for age, normal judgement, euthymic mood. Assessment/Plan This patient has a history of recurrent urinary tract infections. Laboratory studies show that she has had a recent 1 previous urine culture. Her symptoms include dysuria urgency frequency and she has been treated with at least 2 previous oral antibiotics neither of which have completely eliminated her symptoms. She is being scheduled for cystoscopy and dilation of suspected urethral stenosis. The procedure, risk, alternatives and potential complications have been discussed with the patient. I answered all the questions. Informed consent has been obtained. Preop antibiotics have been ordered and sent to the pharmacy. 1. Recurrent UTI (N39.0: Urinary tract infection, site not specified) Pt. states having symptoms of a UTI since 12/2020. UA today does not appear to be infected. Will have pt. obtain renal us and will schedule Cysto with UD. The procedure risks, benefits, details, and treatment alternatives have been discussed with the patient. These include bleeding, infection, recurrent scar in over 50%, need for repeat dilation or other procedures, no symptom relief with dilation, among others. Full informed consent has been obtained. Will order Local anesthesia. ABX sent to [facility] in [place]. Ordered: Urology Procedure Order US Renal 2. Dysuria (R30.0: Dysuria) Moderate. Ordered: Urnls Dip Stick Auto w/o Microscopy POC 13917 Urology Procedure Order US Renal 3. Nocturia (R35.1: Nocturia) 1-4x/night. Ordered: Urology Procedure Order US Renal 4. Leaking of urine (R32: Unspecified urinary incontinence) Mild, intermittent. Pt. wears liners for precaution. Ordered: Urology Procedure Order US Renal 5. Poor urinary stream (R39.12: Poor urinary stream) Occasional intermittency. Ordered: Urology Procedure Order US Renal Orders: cephalexin, 500 mg = 1 cap(s), Oral, Daily, take 1 tab one day prior to the procedure and take 1 tab after the procedure, # 2 cap(s), Refills(s) 0, Pharmacy: [facility]/pharmacy #[id number], 172.7, cm, 02/24/21 8:22:00 EDT, Height/Length Dosing, 99.8, kg, 02/24/21 8:21:00 (more content not included)... Normal [facility] Comment on above: Result Comment: Elec tronically Signed By: Richard Leal MD, Maximo Dhaliwal\.br\Date and Time Signed: 02/24/21 09:35 EDT\.br\Electronically Co-Signed By: Indu Gonzalez MA\.br\Date and Time Co-Signed: 02/24/21 08:56 EDT LARGE JOINT/BURSA INJECTION AND/OR ASPIRATION: R kneeon 11-19-2020 New Mcclure MD 11/27/2020 2:34 PM LARGE JOINT/BURSA INJECTION AND/OR ASPIRATION: R knee Date/Time: 11/19/2020 2:10 PM Supporting Documentation Indications: pain Procedure Details: Location: knee - R knee Local Anesthetic: ethyl chloride (cold spray) Needle size: 22 G Medication Verification: I have personally verified and performed the final check of the medication(s) used in this procedure prior to administration. The following items were included during the verification process for medication(s) administered: drug name, strength, volume, expiration, physical integrity and appearance of the medication(s). Medications administered: 5 mL lidocaine 1% (PF) 1 %; 1 mL triamcinolone 40 MG/ML Patient tolerance: patient tolerated the procedure well with no immediate complications The patient was prepped with Betadine. [employer] CT UPPER EXTREMITY WO CONTRA ST RIGHTon 03-10-2020 CT UPPER EXTREMITY WO CONTRAST RIGHT [facility] Department of Radiology [address] [place] [id number] ======== Patient Name: DANYELLE HASKINS : 1955 Sex: F Age: Race: White Pt. Location: Patient Status: O Ordered Date: 03/10/2020 2:25:00 PM Completed Date: 03/10/2020 04:00 PM Requesting Provider: JOE ZUNIGA Attending Provider: JOE ZUNIGA Report Copy To: YULISA BATRES Signs & Symptoms: S42.201A Unsp fracture of upper end of right humerus, init I10 History: Susan Patient to go to clinic after call results to [id number] ortho clinic NO PC MEDICARE/BC CPT CODE 00978 *MLA Comments: right shoulder Exam: CT UPPER EXTREMITY WO CONTRAST RIGHT ======== CT UPPER EXTREMITY WO CONTRAST RIGHT 03/10/2020 4:01 PM CLINICAL INDICATIONS: S42.201A Unsp fracture of upper end of right humerus, init I10 TECHNOLOGIST COMMENTS: 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 TECHNIQUE: Multidetector CT axial slices of the right shoulder without IV contrast. Multiplanar reformats were performed and viewed on a separate workstation and reviewed to further define anatomy and possible pathology. COMPARISON: Right shoulder radiograph March 08, 2020 FINDINGS: Redemonstration of a well-corticated bone density adjacent to the right acromioclavicular joint, likely right acromial fracture off uncertain age. Right superior and anterior humeral head subluxation. Right shoulder joint effusion with possible surrounding muscles hematoma. Bilateral acromioclavicular and glenohumeral joints degenerative changes. Left hilar calcified lymph nodes. Visualized lungs show no acute abnormality. IMPRESSION: 1. Redemonstration of a well-corticated bone density adjacent to the right acromioclavicular joint, likely right acromial fracture off uncertain age. 2. Right superior and anterior humeral head subluxation. Right shoulder joint effusion with possible surrounding muscles hematoma. All CT scans at this facility use dose modulation, iterative reconstruction, and/or weight based dosing when appropriate to reduce radiation dose to as low as reasonably achievable Approved by:Isabell Markhamon03/10/2020 4:32 PM. I, Abdelrahman Constantino,have reviewed the images and reports Electronically signed: Abdelrahman Constantino. Transcribed by: [id number], User Resident: ISABELL MARKHAM Electronically Signed by: ABDELRAHMAN CONSTANTINO @ 03/10/2020 04:46 PM I personally read this/these film(s) with this resident Normal [facility] Comment on above: Order Comment: right shoulder SHOULDER RIGHTon 03-10-2020 SHOULDER RIGHT [facility] Department of Radiology [address] [place] [id number] ======== Patient Name: DANYELLE HASKINS : 1955 Sex: F Age: Race: White Pt. Location: Patient Status: O Ordered Date: 03/10/2020 2:05:00 PM Completed Date: 03/10/2020 02:13 PM Requesting Provider: JOE ZUNIGA Attending Provider: Report Copy To: Signs & Symptoms: S42.201A Unsp fracture of upper end of right humerus, init I10 History: Susan Comments: , Views (X-RAY, SHOULDER): Axillary , Weight Bearing?: N Exam: SHOULDER RIGHT ======== SHOULDER RIGHT 03/10/2020 2:14 PM SIGNS AND SYMPTOMS: S42.201A Unsp fracture of upper end of right humerus, init I10 TECHNOLOGIST COMMENTS: Patient complains of right shoulder pain, post cleaning windows 03/08/2020. QUESTION FOR THE RADIOLOGIST: , Views (X-RAY, SHOULDER): Axillary , Weight Bearing?: N PROTOCOL: Axillary view obtained. COMPARISON: Right shoulder radiograph March 08, 2020 FINDINGS: Soft tissues: Soft tissue swelling about the right shoulder Bones: Redemonstration of osseous density anterior to the acromion, likely representing acromion fracture Joints: Mild anterior subluxation of the humeral head. Glenohumeral osteoarthritic changes. IMPRESSION: Redemonstration of osseous density anterior to the acromion, likely representing acromion fracture of uncertain age. If clinical correlation is suggested. Approved by:Isabell Markhamon03/10/2020 4:20 PM. I, Abdelrahman Constantino,have reviewed the images and reports Electronically signed: Abdelrahman Constantino. Transcribed by: [id number], User Resident: ISABELL MARKHAM Electronically Signed by: ABDELRAHMAN CONSTANTINO @ 03/10/2020 04:48 PM I personally read this/these film(s) with this resident Normal [facility] Comment on above: Order Comment: , Vie ws (X-RAY, SHOULDER): Axillary , Weight Bearing?: N LARGE JOINT INJECTION: R kne daiana 11-21-2019 New Mcclure MD 11/23/2019 2:44 PM LARGE JOINT INJECTION: R knee Date/Time: 11/21/2019 2:00 PM Supporting Documentation Indications: pain Procedure Details Location: knee - R knee Local Anesthetic Used: mL of ethyl chloride (cold spray) Needle size: 22 G Medication Verification: I have personally verified and performed the final check of the medication(s) used in this procedure prior to administration. The following items were included during the verification process for medication(s) administered: drug name, strength, volume, expiration, physical integrity and appearance of the medication(s). Medications administered: 5 mL lidocaine 1% (PF) 1 %; 1 mL triamcinolone 40 MG/ML Patient tolerance: patient tolerated the procedure well with no immediate complications Preparation: with Betadine. [employer] CBC, EDIF, PLATELETon 2018 ABSOLUTE BASOPHIL COUNT 0.[address] Basophils/100 WBC (Bld) 0.6 % 0 - 2 % [address] Differential cell count method Nom (Bld) AUTO DIFF % [address] Eosinophils #/vol (Bld) 0.00 10*3/uL X10 [address] Eosinophils/100 WBC (Bld) 1.0 % 0 - 11 % [address] Erythrocyte distribution width Ratio (RBC) 14.2 % 11.5 - 14.5 % [address] Hematocrit Volume Fraction (Bld) 33.5 % Low 36 - 48 % [address] Hemoglobin mass conc (Bld) 11.5 g/dL Low [address] Interpretation and review of laboratory results Abnormal [address] Lymphocytes #/vol (Bld) 0.70 10*3/uL X10 [address] Lymphocytes/100 WBC (Bld) 16.1 % Low 20 - 55 % [address] MCH Entitic mass (RBC) 34.6 pg 26 - [address] MCHC mass conc (RBC) 34.2 g/dL [facility] [address] MCV Entitic volume (RBC) 101.1 fL High [address] Monocytes #/vol (Bld) 0.4 10*3/uL X10 [address] Monocytes/100 WBC (Bld) 9.9 % 0 - 10 % [address] Neutrophils #/vol (Bld) 3.3 10*3/uL [address] Neutrophils/100 WBC (Bld) 72.4 % 37 - 75 % [address] Platelet mean volume Entitic volume (Bld) 7.[address] Platelets #/vol (Bld) 191 10*3/uL [address] RBC #/vol (Bld) 3.31 10*6/uL Low [address] WBC #/vol (Bld) 4.5 10*3/uL [address] CBC, EDIF, PLATELETon 2018 ABSOLUTE BASOPHIL COUNT 0.[address] Basophils/100 WBC (Bld) 0.2 % 0 - 2 % [address] Differential cell count method Nom (Bld) AUTO DIFF % [address] Eosinophils #/vol (Bld) 0.00 10*3/uL X10 [address] Eosinophils/100 WBC (Bld) 0.1 % 0 - 11 % [address] Erythrocyte distribution width Ratio (RBC) 13.8 % 11.5 - 14.5 % [address] Hematocrit Volume Fraction (Bld) 30.2 % Low 36 - 48 % [address] Hemoglobin mass conc (Bld) 10.5 g/dL Low [address] Interpretation and review of laboratory results Abnormal [address] Lymphocytes #/vol (Bld) 0.50 10*3/uL X10 [address] Lymphocytes/100 WBC (Bld) 8.9 % Low 20 - 55 % [address] MCH Entitic mass (RBC) 34.8 pg 26 - [address] MCHC mass conc (RBC) 34.8 g/dL [facility] [address] MCV Entitic volume (RBC) 99.[address] Monocytes #/vol (Bld) 0.6 10*3/uL X10 [address] Monocytes/100 WBC (Bld) 10.2 % High 0 - 10 % [address] Neutrophils #/vol (Bld) 4.5 10*3/uL [address] Neutrophils/100 WBC (Bld) 80.6 % High 37 - 75 % [address] Platelet mean volume Entitic volume (Bld) 7.[address] Platelets #/vol (Bld) 181 10*3/uL [address] RBC #/vol (Bld) 3.02 10*6/uL Low [address] WBC #/vol (Bld) 5.6 10*3/uL [address] CBC, EDIF, PLATELETon 2018 ABSOLUTE BASOPHIL COUNT 0.[address] Basophils/100 WBC (Bld) 0.2 % 0 - 2 % [address] Differential cell count method Nom (Bld) AUTO DIFF % [address] Eosinophils #/vol (Bld) 0.00 10*3/uL X10 [address] Eosinophils/100 WBC (Bld) 0.7 % 0 - 11 % [address] Erythrocyte distribution width Ratio (RBC) 13.9 % 11.5 - 14.5 % [address] Hematocrit Volume Fraction (Bld) 33.6 % Low 36 - 48 % [address] Hemoglobin mass conc (Bld) 11.5 g/dL Low [address] Interpretation and review of laboratory results Abnormal [address] Lymphocytes #/vol (Bld) 0.70 10*3/uL X10 [address] Lymphocytes/100 WBC (Bld) 14.4 % Low 20 - 55 % [address] MCH Entitic mass (RBC) 34.7 pg 26 - [address] MCHC mass conc (RBC) 34.1 g/dL [facility] [address] MCV Entitic volume (RBC) 101.8 fL High [address] Monocytes #/vol (Bld) 0.5 10*3/uL X10 [address] Monocytes/100 WBC (Bld) 9.8 % 0 - 10 % [address] Neutrophils #/vol (Bld) 3.7 10*3/uL [address] Neutrophils/100 WBC (Bld) 74.9 % 37 - 75 % [address] Platelet mean volume Entitic volume (Bld) 7.2 fL Low [address] Platelets #/vol (Bld) 202 10*3/uL [address] RBC #/vol (Bld) 3.30 10*6/uL [address] WBC #/vol (Bld) 4.9 10*3/uL [address] REPEAT ABO/RH (D) TYPINGon 0 11-21-2018 ABO and Rh group Nom (Bld ) Positive [address] SCREEN: MRSA ONLY, NARES (IS OLATION SCREEN)on 11-21-2018 MRSA isol Org specific cx Ql (Nose) Negative [address] STAPHYOCOCCUS AUREUS BY PCR Negative [facility] [address] [facility] Comment on above: TESTING PERFORMED BY PCR XR KNEE LEFT 2 VIEWSon 11-21 User, Interfaces - 11/21/2018 3:12 PM EST XR KNEE LEFT 2 VIEWS CLINICAL STATEMENT: Postop extensor mechanism repair. COMPARISON: Left knee series August 01, 2018. TECHNIQUE: AP and lateral views of the left knee. FINDINGS: Left knee brace partially obscures the bones on the lateral projection. Left knee arthroplasty remains in stable alignment. Surgical drain overlies the suprapatellar region. Single threaded screw at the tibial tuberosity. IMPRESSION IMPRESSION: Postsurgical changes with no evidence of joint malalignment or acute fracture. RADIOLOGY XR KNEE LEFT 2 VIEWS CLINICAL STATEMENT: Postop extensor mechanism repair. COMPARISON: Left knee series August 01, 2018. TECHNIQUE: AP and lateral views of the left knee. FINDINGS: Left knee brace partially obscures the bones on the lateral projection. Left knee arthroplasty remains in stable alignment. Surgical drain overlies the suprapatellar region. Single threaded screw at the tibial tuberosity. RADIOLOGY IMPRESSION: Postsurgical changes with no evidence of joint malalignment or acute fracture. RADIOLOGY Basic Metabolic Panelon 10-1 Calcium 9.2 mg/dL Normal 8.4-10.2 [facility] Comment on above: Performed By: #### C HEM8 ####Unless otherwise noted, all testing performed by [address] [id number]: [id number] Director: Yo Araujo M.D. Chloride 110 mmol/L High 98-108 [facility] Comment on above: Performed By: #### C HEM8 ####Unless otherwise noted, all testing performed by [address] [phone]: [id number] Director: Yo Araujo M.D. CO2 27 mmol/L Normal 21-32 [facility] Comment on above: Performed By: #### C HEM8 ####Unless otherwise noted, all testing performed by [address] [phone]: [id number] Director: Yo Araujo M.D. Creatinine 0.60 mg/dL Normal 0.60-1.20 [facility] Comment on above: Performed By: #### C HEM8 ####Unless otherwise noted, all testing performed by [address] [phone]: [id number] Director: Yo Araujo M.D. eGFR (black) mL/min/{1.73_m2} Normal [facility] Comment on above: Result Comment: Afri can Grenadian GFR Calc Performed By: #### C HEM8 ####Unless otherwise noted, all testing performed by [address] [id number]: [id number] Director: Yo Araujo M.D. eGFR (non-black) mL/min/{1.73_m2} Normal [facility] Comment on above: Result Comment: Non- GFR CalceGFR is an estimated Glomerular Filtration Rate based on the valueof the patient's serum creatinine. In outpatients, eGFR should be usedas a helpful tool in screening for CKD. In inpatients or patients withacute renal failure, eGFR represents the GFR at the moment of the drawand should be used with caution. Performed By: #### C HEM8 ####Unless otherwise noted, all testing performed by [address] [id number]: [id number] Director: Yo Araujo M.D. Glucose mass conc 87 mg/dL Normal 70-99 [facility] Comment on above: Result Comment: This test result might be falsely depressed or falsely elevated onsamples drawn from patients taking Sulfasalazine and Sulfapyridine.Venipuncture should occur prior to taking either of these drugs. Performed By: #### C HEM8 ####Unless otherwise noted, all testing performed by [address] [id number]: [id number] Director: Yo Araujo M.D. Potassium molar conc 4.2 mmol/L Normal 3.5-5.1 [facility] Comment on above: Performed By: #### C HEM8 ####Unless otherwise noted, all testing performed by [address] [phone]: [id number] Director: Yo Araujo M.D. Sodium 143 mmol/L Normal 135-145 [facility] Comment on above: Performed By: #### C HEM8 ####Unless otherwise noted, all testing performed by [address] [phone]: [id number] Director: Yo Araujo M.D. Urea nitrogen 10 mg/dL Normal 8-25 [facility] Comment on above: Performed By: #### C HEM8 ####Unless otherwise noted, all testing performed by [address] [phone]: [id number] Director: Yo Araujo M.D. [facility] Repor ton 08-15-2017 [facility] Report Type: OrthopedicDictated by: To be signed by: Transcribed by: Transcribed D/ Dictation D/ Report: DATE OF VISIT: 08/11/2017 HISTORY OF PRESENT ILLNESS: Ms. Haskins underwent left patellar tendon repair and inferior partial patellectomy on 07/18/2017 three weeks ago. She is doing well. She is at a longterm with a knee immobilizer locked out in extension and has been non-weightbearing. She is doing very well. She is happy with her recovery to date. She is having minimal pain, using only Tylenol at this time. She is planning to be discharged from the longterm next week when she has a wheelchair ramp, where she will be alone at that time. I have advised her to contact us should she have any needs and that she does need home health to check in on her initially at least. She is wearing her LUZ MARINA hose. She is on Eliquis for DVT prophylaxis. She seems to be following all instructions well and has no unaddressed concerns today. PHYSICAL EXAMINATION: Today she is 5-foot-8, 212 pounds. Temperature is 98.1. Pain is 0 out of 10. Her incision is healing very nicely. There is no erythema, drainage, or dehiscence. There is just mild global knee swelling. She has soft calves that are nontender. Shane's sign is negative. She does have some mild distal left lower extremity swelling, and the foot is inverting slightly. DIAGNOSTIC STUDIES/INTERPRETATION S/IMPRESSIONS: X-ray was reviewed, and there are no significant findings. There is no palpable drop off of the patellar tendon, and to external exam everything feels to be healing nicely. ASSESSMENT/PLAN: Three weeks status post left patellar tendon repair. Continue with a knee immobilizer in full extension another three weeks. Follow up in our office then. Contact us should she need something sooner. Complete her Eliquis course and continue to wear the left LUZ MARINA hose until next followup and continue with non-weightbearing status. I did advise her that she may shower at the longterm only using a shower chair with a shower stool. The knee should be in extension before the brace comes off and should remain in extension until the brace goes back on. She should not stand while not wearing the brace. This was all relayed via instructions to the longterm. We will see her back in three weeks. Dictated by KAREEM Croft, for Dr. Mcclure. 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 She is an established patient of [facility]. She was last seen on 04/27/2017, diagnosed with periprosthetic fracture, patellar failure with extensor mechanism disruption of her left knee. At that time, I had advised surgical reconstruction, possible patellectomy versus allograft with extensor reconstruction. She is here today now ready to proceed with surgical planning. She is having instability of the knee and some weakness. She is able to walk with a cane and has instability in the knee. No other new symptoms. The remaining portion of the history is per the documentation form. PAST MEDICAL HISTORY: Possible cyst on left hip. PAST SURGICAL HISTORY: Hysterectomy (2005). Joint replacement (09/01/15). Spine surgery L2,3, 4, and 5 (2011). Skin lesions (2015). FAMILY HISTORY: Father with cancer. Mother with heart disease, blood clots and hypertension. Sister with diabetes and cancer. SOCIAL HISTORY: The patient lives alone. She does not have any children. 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 She does have stairs in the home. She has two steps to climb to enter the home. The patient denies tobacco, alcohol or recreational drug use. The patient does not currently receive any services in the home. The patient is not on any senior programs. The patient does have transportation to go to outpatient therapy if needed. The patient has a walker, commode chair, shower chair, and a cane in the home for equipment. She is not followed by cardiology. The patient is followed by Dr. Jeffrey of pain management. The patient is followed by Dr. Monaco, a cornetist and by Dr. Lili Parks, a neurologist. REVIEW OF SYSTEMS: Constitutional: Positive for Insomnia. Eyes: Positive for recent vision change, cataracts bilateral. ENT: Negative. Cardiovascular: Negative. Respiratory: Negative. Gastrointestinal: Positive for ulcer and acid reflux. Musculoskeletal: Positive for arthrits, back pain, muscle weakness, joint pain, and swelling in multiple joint, left knee and right hip. SkiN: Negative. Neurologic: Positive for numbness in both feet. Positive for leg pain and sciatica. Psychiatric: Positive for depression. Hematologic: Positive for blood transfusion 2013 from bleeding ulcer. Positive for easy bruising. Endocrine: Positive for prednisone use. MEDICATIONS: Pantoprazole. Hydroxychloroquine. Arava. Boniva. Methotrexate. Baclofen. Zonisamide. Calcium Plus D. Multi-vitamin. Glucosamine. Tylenol arthritis. Metamucil. Biotin. Alpha Lipoic acid. Magnesium Oxide. Tramadol. Triamterene HCTZ. Amoxicillin. Lidocaine. Prednisone. ALLERGIES: NO KNOWN DRUG ALLERGIES. METAL ALLERGIES: None. PHYSICAL EXAMINATION: This is an alert, oriented, age appropriate female in no acute distress, pleasant and cooperative; 5 feet 8 inches, 205 pounds, temperature 98.4. Pain is 1-5. The bilateral upper extremities have no gross deformity, normal stability, 5/5 motor, intact sensation, normal coordination and reflexes. Skin is intact, no nodules. Gait is an antalgic gait with use of a cane. The bilateral lower extremities have no gross deformity, normal stability, 5/5 motor, intact sensation, normal coordination and reflexes. Skin is intact, no nodules. The left knee has a midline incision that is well healed. She has a palpable defect over the anterior knee. She has some discomfort in this area. She has range of motion today; actively it is around 25-115 degrees. She has some strength with terminal extension, but is unable to actively increase it to neutral as I can passively. Normal stability within the knee, full motion of the hip, no pain, no impingement. DIAGNOSTIC STUDY/INTERPRETATION/I MPRESSION: Plain film radiographs were reviewed. She has, what appears to be, a cemented Lilo total knee arthroplasty posterior stabilized, in fair position and alignment. It does not appear to be loose. 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 IMPRESSION: Periprosthetic patellar fracture left knee with extensor mechanism failure. PLAN: I reviewed my findings with Danyelle. She presents with a very complex situation and as I have advised in the past, I would advise again for surgical reconstruction. Although the nature of this operation is complex and risk is high for complications, I expect her to be at equally as high risk of complications with nonoperative management. She has a very arthritic right knee that she would like to take care of and is going to be at risk of failure with this as well as continued failure of her left knee, which could cause significant morbidity and potentially mortality. As such, my recommendation for surgery would be for an attempt at direct patellar tendinous repair with possible fixation of the patella versus patellectomy, and also to have then extensor mechanism reconstruction as a backup. The nature of this operation, the risks, benefits and alternatives and the perioperative course, were thoroughly explained to her. Those risks include but are not limited to bleeding, infection, neurovascular injury, blood clots, DVT, PE, cardiac arrest, respiratory arrest, periprosthetic fracture, periprosthetic loosening, periprosthetic infection, failure of the operation, extensor lag, weakness, and need for additional operations in the future, such as revision arthroplasty or fusion were explained to her. She is agreement with this. She has no further questions. She would like to proceed with the surgical planning process and we will initiate that now. We will ask for presurgical medical recommendations from her primary care provider preoperatively and, as well, plan on stopping her antirheumatics for at least 2 weeks in advance of surgery and 2 weeks postoperatively. Normal [facility] Radiologyon 08-02-2017 Radiology Type: OutpatientDictated by: Signed by: Transcribed by: Transcribed Date/Time: 06/23/2017 11:47Dictation Date/Time: 06/22/2017 17:52Report: DATE OF SERVICE: 06/22/2017 DIAGNOSTIC STUDY/INTERPRETATION/I MPRESSION: Plain film radiographs were reviewed. She has, what appears to be, a cemented Lilo total knee arthroplasty posterior stabilized, in fair position and alignment. It does not appear to be loose. 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 Normal [facility] Repor ton 07-26-2017 [facility] Report Type: OfficeDictated by: To be signed by: Transcribed by: Transcribed D/ Dictation D/ Report: GASPER GUTIERREZ ADMISSION NOTE DATE OF ADMISSION: 07/21/17 REASON FOR ADMISSION: Failed total left knee arthroplasty with periprosthetic fracture of the patella, status post repair. SIGNIFICANT FINDINGS: This 62 year old female had had a left total knee arthroplasty and she was evaluated by Dr. Mcclure for repair. She had a periprosthetic fracture of the patella with failure of the extensor mechanism and disruption of her left knee. He discussed reconstruction and she was in agreement. The patient was therefore admitted 07/18/[address] Mcclure performed left knee patellar tendon repair, left knee inferior partial patellectomy, and left knee periarticular injection. There was no perioperative complications and she was stable but required PT and OT for strengthening and working with therapy as far as ambulation. She was therefore admitted here for further care. She states that she has some mild knee pain, nothing significant, and pain medicine is effective. She was having diarrhea at first and stool softeners were discontinued and she was placed on Questran and now she is having one bowel movement a day but they are still loose. There is no blood in it and she is no having no fever or chills. The patient denies any other complaints at this time. PAST MEDICAL HISTORY: Positive for osteoarthritis, depression, insomnia, and gastroesophageal reflux disease. PAST SURGICAL HISTORY: Hysterectomy, joint replacement 09/01/15, spine surgery L2, 3, 4, and 5 in 2011. FAMILY HISTORY: Positive for cancer and heart disease as well as hypertension and diabetes. SOCIAL HISTORY: She lives alone and has no children. No smoking, alcohol, or drug use. The patient is seen by a cornetist, has a pain specialist, and a neurologist. MEDICATIONS: Acetaminophen p.r.n., alpha-lipoic acid tablet 200 mg three times a day, apixaban 2.5 mg two times a day for 35 days, baclofen 10 mg three times a day, biotin tablet 20,000 micrograms two times a day, calcium with Vitamin D 600/200 one p.o. two times a day, docusate has been discontinued, Dyazide one capsule every 24 hours p.r.n. edema, glucosamine chondroitin tablet one p.o. daily, ibandronate sodium tablet 150 mg p.o. times one, leflunomide 20 mg tablet p.o. daily, magnesium 400 mg one tablet every 24 hours p.r.n. muscle cramps, Metamucil one time daily p.r.n., multiple vitamin one daily, oxycodone 5 mg one or two every four hours p.r.n. pain, Protonix 40 mg p.o. daily, and zonisamide capsule 100 mg p.o. daily. REVIEW OF SYSTEMS: General: no fever, chills, sweats, or significant weight change. HEENT: she denies headache, dizziness, difficulty eating and swallowing. Respiratory: no shortness of breath, coughing, or wheezing. Cardiovascular: no chest pain, chest pressure, regular or rapid heartbeats. GI: she does have the loose stools as noted but it is improved with Questran. No bloody or tarry stools. She denies abdominal pain, nausea, vomiting, or heartburn. : no dysuria or hematuria. Musculoskeletal: she has some left knee pain that as noted but denies pain elsewhere. No joint swelling or redness. Neurological: no neuropathy and no tremors. Psyche: she has a history of depression but currently not depressed or anxious. PHYSICAL EXAMINATION: An alert, oriented, pleasant, and cooperative female in no acute distress. Skin: warm and dry, no rash. Left knee dressing is intact and in place without erythema or drainage. HEENT: head is normocephalic and nares patent with satisfactory oromucosa. Neck: no JVD or thyromegaly. Cardiovascular: heart rate and rhythm regular without ectopy or murmur. Respiratory: lungs are clear to auscultation without wheeze or rhonchi. Abdomen is soft and nontender with good bowel sounds. Musculoskeletal: she is in a wheelchair. She has a knee immobilizer in place left leg. No joint erythema or edema elsewhere and the other extremities move well. Neurological: cranial nerves are intact without pathological reflexes. Psyche: no anxiety or depression. CONDITION: Stable. PROGNOSIS/REHAB: Good. 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 2) Osteoarthritis. 3) Depression. 4) Insomnia. 5) Gastroesophageal reflux disease. PLAN: 1) PT and OT. 2) Orders reviewed and continue same. Normal [facility] C. difficile Assayon 017 C. difficile interpretation Negative Normal [facility] Comment on above: Result Comment: Rapi d test procedural control acceptable. Performed By: #### z CDIF ####Unless otherwise noted, all testing performed by [address] [phone]: [id number] Director: Yo Araujo M.D. Specimen Acceptable (CDIF)on 07-24-2017 Specimen Acceptable (CDIF) YES Normal [facility] Comment on above: Result Comment: C. shelbi ifficile testing result(s) to follow. Performed By: #### C DSPEC ####Unless otherwise noted, all testing performed by [address] [phone]: [id number] Director: Yo Araujo M.D. CBC with Diffon 07-23-2017 Basophils Auto #/vol (Bld) 0.0 K/mcL Normal 0-0.2 [facility] Comment on above: Performed By: #### C BCDIF, CMET, TSH ####Unless otherwise noted, all testing performed by [address] [id number]: [id number] Director: Yo Araujo M.D. Basophils/100 WBC Auto (Bld) 0.5 % Normal [facility] Comment on above: Performed By: #### C BCDIF, CMET, TSH ####Unless otherwise noted, all testing performed by [address] [phone]: [id number] Director: Yo Araujo M.D. Eosinophils 0.1 K/mcL Normal 0-0.5 [facility] Comment on above: Performed By: #### C BCDIF, CMET, TSH ####Unless otherwise noted, all testing performed by [facility] [address] [phone]: [id number] Director: Yo Araujo M.D. Eosinophils/100 leukocytes 1.7 % Normal [facility] Comment on above: Performed By: #### C BCDIF, CMET, TSH ####Unless otherwise noted, all testing performed by [address] [phone]: [id number] Director: Yo Araujo M.D. Erythrocyte distribution width Auto Ratio (RBC) 14.6 % High 10.0-14.4 [facility] Comment on above: Performed By: #### C BCDIF, CMET, TSH ####Unless otherwise noted, all testing performed by [address] [phone]: [id number] Director: Yo Araujo M.D. Erythrocytes (RBC) 3.32 M/mcL Low 3.7-5.0 [facility] Comment on above: Performed By: #### C BCDIF, CMET, TSH ####Unless otherwise noted, all testing performed by [address] [phone]: [id number] Director: Yo Araujo M.D. Hematocrit (HCT) 33.9 % Low 34.4-44.8 [facility] Comment on above: Performed By: #### C BCDIF, CMET, TSH ####Unless otherwise noted, all testing performed by [address] [phone]: [id number] Director: Yo Araujo M.D. Hemoglobin mass conc (Bld) 11.8 g/dL Normal 11.6-15.4 [facility] Comment on above: Performed By: #### C BCDIF, CMET, TSH ####Unless otherwise noted, all testing performed by [address] [phone]: [id number] Director: Yo Araujo M.D. Lymphocytes 0.8 K/mcL Low 1.0-3.7 [facility] Comment on above: Performed By: #### C BCDIF, CMET, TSH ####Unless otherwise noted, all testing performed by [address] [phone]: [id number] Director: Yo Araujo M.D. Lymphocytes/100 leukocytes 18.3 % Normal [facility] Comment on above: Performed By: #### C BCDIF, CMET, TSH ####Unless otherwise noted, all testing performed by [address] [phone]: [id number] Director: Yo Araujo M.D. MCH 35.6 pg High 27.9-33.9 [facility] Comment on above: Performed By: #### C BCDIF, CMET, TSH ####Unless otherwise noted, all testing performed by [address] [phone]: [id number] Director: Yo Araujo M.D. MCHC mass conc (RBC) 34.8 g/dL Normal 33.1-35.1 [facility] Comment on above: Performed By: #### C BCDIF, CMET, TSH ####Unless otherwise noted, all testing performed by [address] [phone]: [id number] Director: Yo Araujo M.D. MCV 102.1 fL High 82.6-98.9 [facility] Comment on above: Performed By: #### C BCDIF, CMET, TSH ####Unless otherwise noted, all testing performed by [address] [phone]: [id number] Director: Yo Araujo M.D. Monocytes 0.6 K/mcL Normal 0.1-0.6 [facility] Comment on above: Performed By: #### C BCDIF, CMET, TSH ####Unless otherwise noted, all testing performed by [address] [phone]: [id number] Director: Yo Araujo M.D. Monocytes/100 leukocytes 13.1 % Normal [facility] Comment on above: Performed By: #### C BCDIF, CMET, TSH ####Unless otherwise noted, all testing performed by [address] [phone]: [id number] Director: Yo Araujo M.D. Neutrophils 3.1 K/mcL Normal 1.2-6.9 [facility] Comment on above: Performed By: #### C BCDIF, CMET, TSH ####Unless otherwise noted, all testing performed by [address] [phone]: [id number] Director: Yo Araujo M.D. Platelet mean volume (PMV) 7.4 fL Normal 7.0-10.6 [facility] Comment on above: Performed By: #### C BCDIF, CMET, TSH ####Unless otherwise noted, all testing performed by [address] [phone]: [id number] Director: Yo Araujo M.D. Platelets 229 K/mcL Normal 162-402 [facility] Comment on above: Performed By: #### C BCDIF, CMET, TSH ####Unless otherwise noted, all testing performed by [place] [phone]: [id number] Director: Yo Araujo M.D. Segmented Neut % 66.4 % Normal [facility] Comment on above: Performed By: #### C BCDIF, CMET, TSH ####Unless otherwise noted, all testing performed by [place] [phone]: [id number] Director: Yo Araujo M.D. WBC (Leukocytes) 4.6 K/mcL Normal 3.4-10.6 [facility] Comment on above: Performed By: #### C BCDIF, CMET, TSH ####Unless otherwise noted, all testing performed by [address] [phone]: [id number] Director: Yo Araujo M.D. [facility] 07-23-2017 Alanine aminotransferase (ALT) 27 U/L Normal 14-65 [facility] Comment on above: Result Comment: This test result might be falsely depressed or falsely elevated onsamples drawn from patients taking Sulfasalazine and Sulfapyridine.Venipuncture should occur prior to taking either of these drugs. Performed By: #### C BCDIF, CMET, TSH ####Unless otherwise noted, all testing performed by [address] [phone]: [id number] Director: Yo Araujo M.D. Albumin 2.8 g/dL Low 3.2-5.2 [facility] Comment on above: Performed By: #### C BCDIF, CMET, TSH ####Unless otherwise noted, all testing performed by [place] [phone]: [id number] Director: oY Araujo M.D. Alkaline phosphatase (ALP) 53 U/L Normal 40-150 [facility] Comment on above: Performed By: #### C BCDIF, CMET, TSH ####Unless otherwise noted, all testing performed by [address] [phone]: [id number] Director: Yo Araujo M.D. Aspartate aminotransferase (AST) 32 U/L Normal 0-45 [facility] Comment on above: Result Comment: This test result might be falsely depressed or falsely elevated onsamples drawn from patients taking Sulfasalazine and Sulfapyridine.Venipuncture should occur prior to taking either of these drugs. Performed By: #### C BCDIF, CMET, TSH ####Unless otherwise noted, all testing performed by [address] [phone]: [id number] Director: Yo Araujo M.D. Bilirubin (total) 0.9 mg/dL Normal 0.3-1.2 [facility] Comment on above: Performed By: #### C BCDIF, CMET, TSH ####Unless otherwise noted, all testing performed by [place] [phone]: [id number] Director: Yo Araujo M.D. Calcium 8.7 mg/dL Normal 8.4-10.2 [facility] Comment on above: Performed By: #### C BCDIF, CMET, TSH ####Unless otherwise noted, all testing performed by [place] [phone]: [id number] Director: Yo Araujo M.D. Chloride 108 mmol/L Normal 98-108 [facility] Comment on above: Performed By: #### C BCDIF, CMET, TSH ####Unless otherwise noted, all testing performed by [phone]: [id number] Director: Yo Araujo M.D. CO2 26 mmol/L Normal 21-32 [facility] Comment on above: Performed By: #### C BCDIF, CMET, TSH ####Unless otherwise noted, all testing performed by [place] [phone]: [id number] Director: Yo Araujo M.D. Creatinine 0.57 mg/dL Low 0.60-1.20 [facility] Comment on above: Performed By: #### C BCDIF, CMET, TSH ####Unless otherwise noted, all testing performed by [address], [place] [phone]: [id number] Director: Yo Araujo M.D. eGFR (black) mL/min/{1.73_m2} Normal [facility] Comment on above: Result Comment: Afri can Grenadian GFR Calc Performed By: #### C BCMARTHA BRYAN, TSH ####Unless otherwise noted, all testing performed by [address] [phone]: [id number] Director: Yo Araujo M.D. eGFR (non-black) mL/min/{1.73_m2} Normal [facility] Comment on above: Result Comment: Non- GFR CalceGFR is an estimated Glomerular Filtration Rate based on the valueof the patient's serum creatinine. In outpatients, eGFR should be usedas a helpful tool in screening for CKD. In inpatients or patients withacute renal failure, eGFR represents the GFR at the moment of the drawand should be used with caution. Performed By: #### C MARTHA DOUGHERTY, TSH ####Unless otherwise noted, all testing performed by [address] [phone]: [id number] Director: Yo Araujo M.D. Glucose mass conc 86 mg/dL Normal 70-99 [facility] Comment on above: Result Comment: This test result might be falsely depressed or falsely elevated onsamples drawn from patients taking Sulfasalazine and Sulfapyridine.Venipuncture should occur prior to taking either of these drugs. Performed By: #### C MARTHA DOUGHERTY, TSH ####Unless otherwise noted, all testing performed by [address] [phone]: [id number] Director: Yo Araujo M.D. Potassium molar conc 3.7 mmol/L Normal 3.5-5.1 [facility] Comment on above: Performed By: #### C BCDIF, CMET, TSH ####Unless otherwise noted, all testing performed by [place] [phone]: [id number] Director: Yo Araujo M.D. Protein 6.1 g/dL Normal 6.0-8.0 [facility] Comment on above: Performed By: #### C BCDIF, CMET, TSH ####Unless otherwise noted, all testing performed by [address]8509CLIA: [id number] Director: Yo Araujo M.D. Sodium 141 mmol/L Normal 135-145 [facility] Comment on above: Performed By: #### C BCDIF, CMET, TSH ####Unless otherwise noted, all testing performed by [place] [phone]: [id number] Director: Yo Araujo M.D. Urea nitrogen 11 mg/dL Normal 8-25 [facility] Comment on above: Performed By: #### C BCDIF, CMET, TSH ####Unless otherwise noted, all testing performed by [place] [phone]: [id number] Director: Yo Araujo M.D. TSHon 07-23-2017 Thyroid stimulating hormone (TSH) 1.67 uIU/mL Normal 0.320-5.000 [facility] Comment on above: Performed By: #### C BCDIF, CMET, TSH ####Unless otherwise noted, all testing performed by [place] [address], [place] [phone]: [id number] Director: Yo Araujo M.D. DISCH SUMMon 07-21-2017 [facility] NOTES Normal [facility] NURSING NOTEon 07-21-2017 [facility] NOT[facility] Normal [facility] Normal [facility] PLAN OF CAREon 07-21-2017 [facility] NOTES Normal [facility] Normal [facility] NOTES Normal [facility] Normal [facility] Normal [facility] Normal [facility] PROGRESSon 07-21-2017 [facility] NOT[facility] Normal [facility] Normal [facility] Normal [facility] Normal [facility] NURSING NOTEon 07-20-2017 [facility] NOT[facility] Normal [facility] Normal [facility] Normal [facility] PLAN OF CAREon 07-20-2017 [facility] NOTES Normal [facility] Normal [facility] NOTES Normal [facility] Normal [facility] PROGRESSon 07-20-2017 [facility] NOT[facility] Normal [facility] Normal [facility] Normal [facility] Normal [facility] Anes Post-opon 2017 [facility] NOTES Normal [facility] CONSULTon 2017 [facility] NOT[facility] Normal [facility] Certificatioon 2017 [facility] NOT[facility] Normal [facility] NURSING NOTEon 2017 [facility] NOT[facility] Normal [facility] Normal [facility] PLAN OF CAREon 2017 [facility] NOT[facility] Normal [facility] NOTES Normal [facility] PROGRESSon 2017 [facility] Normal [facility] Normal [facility] Normal [facility] Normal [facility] BRIEF OP NOTon 07-18-2017 [facility] NOTES Normal [facility] OP NOTEon 07-18-2017 [facility] NOT[facility] Normal [facility] OR NURSINGon 07-18-2017 [facility] CAC NOTES Normal [facility] XR KNEE LEFT 2 VIEWSon 07-18 XR KNEE LEFT 2 VIEWS XR KNEE LEFT 2 VIEWSEXAM: Left knee, 2 views.INDICATION: Status post total left knee arthroplasty.COMPARISO N: None.FINDINGS: There are post total left knee arthroplasty changes identified, including soft tissue swelling, soft tissue emphysema, and surgical clips within the anterior compartment. The alignment is satisfactory.IMPRESSIO N:Status post total left knee arthroplasty changes as above in satisfactory alignment. Normal [facility] PROGRESSon 07-01-2017 [facility] NOTES Normal [facility] Vital Signs Date Time Vital Sign Value Performing Clinician Facility 11-03-2023 10:09-0500 Diastolic blood pressure 89 mm[Hg] Pepe Chaka [facility] 11-03-2023 10:09-0500 Systolic blood pressure 191 mm[Hg] Pepe [facility] 11-03-2023 09:53-0500 Body height 170.2 cm Pepe [facility] 11-03-2023 09:53-0500 Body mass index (BMI) [Ratio] 34.46 kg/m2 [facility]pe [facility] 11-03-2023 09:53-0500 Body weight 99.79 kg Pepe [facility] 11-03-2023 09:53-0500 Heart rate 67 /min Pepe [facility] Comment on above: regular 11-03-2023 09:53-0500 Respiratory rate 20 /min Pepe [facility] Comment on above: lungs cta 11-03-2023 09:53-0500 SaO2% (BldA) [Mass fraction] 96 % Pepe Chaka [facility] 09-01-2023 12:59-0400 Body height 170.2 cm New Mcclure MD Work Phone: [facility] 09-01-2023 12:59-0400 Body mass index (BMI) [Ratio] 35.4 kg/m2 New Mcclure MD Work Phone: [facility] 09-01-2023 12:59-0400 Body temperature 98.2 [degF] New Mcclure MD Work Phone: [facility] 09-01-2023 12:59-0400 Body weight 102.51 kg New Mcclure MD Work Phone: [facility] 05-19-2023 14:41-0400 Body height 172.7 cm Rajinder Green APRN-GEAR CODING MACHINE OPERATOR Work Phone: [facility] 05-19-2023 14:41-0400 Body mass index (BMI) [Ratio] 34.36 kg/m2 Rajinder Green APRN-GEAR CODING MACHINE OPERATOR Work Phone: [facility] 05-19-2023 14:41-0400 Body temperature 97.59 [degF] Rajinder Green APRN-GEAR CODING MACHINE OPERATOR Work Phone: [employer] 05-19-2023 14:41-0400 Body weight 102.51 kg Rajinder Green GULLET SLITTER-GEAR CODING MACHINE OPERATOR Work Phone: [employer] 08-31-2021 15:30-0400 Body height 173.99 cm Stephen Alicea Other [employer] Other 08-31-2021 15:30-0400 Body mass index (BMI) [Ratio] 30.26 kg/m2 Stephen Alicea Other [employer] Other 08-31-2021 15:30-0400 Body weight 91.63 kg Stephen Alicea Other [employer] Other 08-31-2021 15:30-0400 Diastolic blood pressure 87 mm[Hg] Stephen Alicea Other [employer] Other 08-31-2021 15:30-0400 Systolic blood pressure 145 mm[Hg] Stephen Alicea Other [employer] Other 03-11-2021 13:50-0400 Body height 172.7 cm New Mcclure MD Work Phone: [employer] 03-11-2021 13:50-0400 Body mass index (BMI) [Ratio] 33.45 kg/m2 New Mcclure MD Work Phone: [employer] 03-11-2021 13:50-0400 Body temperature 97 [degF] New Mcclure MD Work Phone: [employer] 03-11-2021 13:50-0400 Body weight 99.79 kg New Mcclure MD Work Phone: [employer] 11-19-2020 14:21-0500 BMI (Body Mass Index) 34.1 kg/m2 New Mcclure [employer] 11-19-2020 14:21-0500 Body Temperature 97.11 [degF] [facility] 11-19-2020 14:21-0500 Body weight 100.25 kg [facility] 11-19-2020 14:21-0500 Height 171.5 cm [facility] 11-21-2019 13:29-0500 BMI (Body Mass Index) 33.42 kg/m2 [facility] 11-21-2019 13:29-0500 Body Temperature 97 [degF] [facility] 11-21-2019 13:29-0500 Body weight 99.7 kg [facility] 11-21-2019 13:29-0500 Height 172.7 cm [facility] 04-18-2019 16:28-0400 BMI (Body Mass Index) 31.02 kg/m2 [facility] 04-18-2019 16:28-0400 Body Temperature 97.59 [degF] [facility] 04-18-2019 16:28-0400 Height 172.7 cm [facility] 04-18-2019 16:28-0400 Weight 92.53 kg [facility] 03-01-2019 14:14-0400 BMI (Body Mass Index) 31.63 kg/m2 [facility] 03-01-2019 14:14-0400 Body Temperature 97.39 [degF] [facility] 03-01-2019 14:14-0400 Height 172.7 cm [facility] 03-01-2019 14:14-0400 Weight 94.35 kg [facility] 01-03-2019 15:24-0500 BMI (Body Mass Index) 31.63 kg/m2 [facility] 01-03-2019 15:24-0500 Body Temperature 97.3 [degF] [facility] 01-03-2019 15:24-0500 Body weight 94.35 kg [facility] 01-03-2019 15:24-0500 Height 172.7 cm [facility] 12-14-2018 14:44-0500 BMI (Body Mass Index) 30.87 kg/m2 Rajinder Abby [facility] Work Phone: 12-14-2018 14:44-0500 Body Temperature 97.9 [degF] [facility] Work Phone: 12-14-2018 14:44-0500 Height 172.7 cm [facility] Work Phone: 12-14-2018 14:44-0500 Weight 92.08 kg Rajinder [facility] Work Phone: 11-24-2018 16:57-0500 Body Temperature 97 [degF] [facility] Work Phone: 11-24-2018 16:57-0500 BP Diastolic 77 mm[Hg] [facility] Work Phone: 11-24-2018 16:57-0500 BP Systolic 155 mm[Hg] [facility] Work Phone: 11-24-2018 16:57-0500 Pulse (Heart Rate) 79 /min [facility] Work Phone: 11-24-2018 16:57-0500 Pulse Oximetry 99 % [facility] Work Phone: 11-24-2018 16:57-0500 Respiratory Rate 18 /min [facility] Work Phone: 11-21-2018 09:00-0500 BMI (Body Mass Index) 32.19 kg/m2 [facility] Work Phone: 11-21-2018 09:00-0500 Height 172.7 cm [facility] Work Phone: 11-21-2018 09:00-0500 Weight 96.03 kg [facility] Work Phone: 10-23-2018 08:49-0500 BP Diastolic 75 mm[Hg] Pepe [facility] [employer] [facility] Work Phone: 10-23-2018 08:49-0500 BP Systolic 159 mm[Hg] Pepe [facility] [employer] [facility] Work Phone: 10-23-2018 08:49-0500 Pulse (Heart Rate) 100 /min Pepe [employer] [employer] [facility] Work Phone: 10-13-2018 09:01-0500 BMI (Body Mass Index) 31.93 kg/m2 Pepe [employer] [facility] Work Phone: 10-13-2018 09:01-0500 Body Temperature 97.81 [degF] Pepe [employer] [employer] [facility] Work Phone: 10-13-2018 09:01-0500 Height 172.7 cm Pepe Chaka [employer] [facility] Work Phone: 10-13-2018 09:01-0500 Pulse Oximetry 99 % Pepe Chaka [employer] [facility] Work Phone: 10-13-2018 09:01-0500 Respiratory Rate 16 /min Pepe [employer] [facility] Work Phone: 10-13-2018 09:01-0500 Weight 95.25 kg Pepe Chaka [employer] [facility] Work Phone: Encounters Encounter Date Encounter Type Care Provider Facility Start: 11-03-2023 [facility] Start: 11-03-2023 Encounter for other preprocedural examination [facility] Start: 11-03-2023 End: 11-03-2023 Admission to [facility] New Mcclure MD Work Phone: [facility] Pre Admission Comment on above: Preop testing (Prima ry Dx); Abnormal finding of blood chemistry, unspecified; Abnormal coagulation profile Start: 11-03-2023 End: 11-03-2023 Patient encounter status New Mcclure MD Work Phone: [facility] Start: 09-01-2023 ambulatory [facility] Start: 09-01-2023 End: 09-01-2023 Office outpatient visit 40 minutes New Mcclure MD Work Phone: [facility] Comment on above: Hx of total knee art hroplasty, right (Primary Dx); Hx of total knee arthroplasty, left Start: 09-01-2023 End: 09-01-2023 Subsequent hospital visit by physician New Mcclure MD Work Phone: [facility] Start: 05-19-2023 ambulatory [facility] Start: 05-19-2023 End: 05-19-2023 Postop follow up visit related to original px Rajinder Green APRN-GEAR CODING MACHINE OPERATOR Work Phone: [facility] Comment on above: Hx of total knee art hroplasty, right (Primary Dx) Start: 05-19-2023 End: 05-19-2023 Subsequent hospital visit by physician Rajinder Green APRN-GEAR CODING MACHINE OPERATOR Work Phone: [facility] Start: 04-26-2023 End: 04-27-2023 ambulatory [facility] Start: 04-14-2023 ambulatory [facility] Start: 03-18-2023 ambulatory [facility] Start: 03-18-2023 End: 03-18-2023 Subsequent hospital visit by physician New Mcclure MD Work Phone: [facility] Start: 02-08-2023 End: 02-09-[address] YULISA BATRES . Facility:[facility] Start: 11-03-2022 End: 11-04-[address] DARREN MONACO Facility:[facility] Start: 10-18-2022 End: 10-19-[address] YULISA BATRES . Facility:[facility] Start: 08-31-2022 End: 09-01-[address] JACK LANDAVERDE . Facility:[facility] Start: 08-27-2022 End: 08-28-[address] YULISA BATRES . Facility:[facility] Start: 07-30-2022 End: 07-31-[address] DARREN MONACO Facility:[facility] Start: 04-20-2022 End: 04-21-[address] DARREN MONACO Facility:[facility] Start: 04-20-2022 End: 04-21-[address] YULISA BATRES . Facility:[facility] Start: 08-31-2021 End: 08-31-2021 ambulatory Stephen Alicea Other [facility] [email or web address] Other Start: 08-31-2021 Office outpatient ne w 30 minutes Stephen Alicea [facility] Start: 05-07-2021 End: 05-08-2021 ambulatory Mary Resendez Facility:[facility] Start: 03-11-2021 End: 03-11-2021 Office outpatient visit 15 minutes New Mcclure MD Work Phone: [facility] Comment on above: Left knee pain, unsp ecified chronicity (Primary Dx); Right knee pain, unspecified chronicity Start: 11-19-2020 End: 11-19-2020 Office outpatient visit 15 minutes New Mcclure Work Phone: [facility] Comment on above: Hx of total knee art hroplasty, left (Primary Dx); Pain in prosthetic joint, initial encounter Start: 11-19-2020 End: 11-19-2020 Subsequent hospital visit by physician New Mcclure Work Phone: [facility] Start: 11-21-2019 End: 11-21-2019 Office outpatient visit 15 minutes New Mcclure Work Phone: [facility] Comment on above: History of total kne e arthroplasty, left (Primary Dx); Arthritis of right knee Start: 11-21-2019 End: 11-21-2019 Subsequent hospital visit by physician New Mcclure Work Phone: [facility] Start: 04-18-2019 End: 04-18-2019 Office outpatient visit 15 minutes [facility] ??? Phone: [facility] Comment on above: Right hip pain (Prim ric Dx); Left knee pain, unspecified chronicity; Right knee pain, unspecified chronicity Start: 04-18-2019 End: 04-18-2019 Patient encounter procedure New Mcclure [employer] Phone: [facility] Start: 03-01-2019 End: 03-01-2019 Subsequent hospital visit by physician New Mcclure Work Phone: [facility] Start: 03-01-2019 End: 03-01-2019 Letter encounter Provider Aurelio [facility] Start: 03-01-2019 End: 03-01-2019 Office outpatient visit 15 minutes [facility] Phone: [facility] Comment on above: History of total kne e arthroplasty, left (Primary Dx); Right hip pain Start: 03-01-2019 End: 03-01-2019 Patient encounter procedure [facility] Phone: [facility] Start: 02-23-2019 End: 02-23-2019 Patient encounter procedure Other Other [facility] Start: 02-09-2019 End: 02-09-2019 Telephone encounter Marcie Lantigua [facility] Comment on above: Leg Swelling Start: 01-05-2019 End: 01-05-2019 Patient encounter procedure Other Other [facility] Start: 01-03-2019 End: 01-03-2019 Office outpatient visit 15 minutes [facility] Phone: [facility] Comment on above: History of total kne e arthroplasty, left (Primary Dx) Start: 12-14-2018 End: 12-14-2018 Patient encounter procedure Rajinder Green [employer] Phone: [facility] [employer] Start: 12-14-2018 End: 12-14-2018 Postop follow up visit related to original px Rajinder Mosquedaey [employer] Phone: [facility] Comment on above: Hx of total knee art hroplasty, left (Primary Dx) Start: 12-06-2018 End: 12-06-2018 Telephone encounter Marcie Lantigua [facility] Comment on above: Skin Problem Start: 11-30-2018 End: 11-30-2018 Patient encounter procedure Other Other NOTES/RESULTS Start: 11-21-2018 End: 11-24-2018 Evaluation and management of inpatient New Mcclure Work Phone: [facility] Comment on above: Pain in left knee Start: 10-23-2018 End: 10-23-2018 Patient encounter procedure New Mcclure Work Phone: [facility] Pre Admission Comment on above: Pre-op exam (Primary Dx) Start: 09-15-2018 End: 09-15-2018 Patient encounter procedure Richard Macdonald [facility] Start: 08-18-2017 Ambulatory [facility] [place] Facility:[facility] Start: 07-24-2017 Ambulatory [facility] Facility:[facility] Start: 07-18-2017 End: 07-21-2017 Evaluation and management of inpatient [facility] Start: 07-01-2017 Ambulatory [facility] Procedures Date Procedure Procedure Detail Performing Clinician Start: 11-03-2023 Ecg routine ecg w/le ast 12 lds w/i&r New Mcclure MD Work Phone: Start: 11-03-2023 Blood typing serologic abo New Mcclure MD Work Phone: Start: 11-03-2023 Complete blood count with white cell differential, automated New Mcclure MD Work Phone: Start: 11-03-2023 Comprehensive metabo lic panel New Mcclure MD Work Phone: Start: 11-03-2023 Cul prsmptv pthgnc o rganism scrn w/colony estimj New Mcclure MD Work Phone: Start: 11-03-2023 Urinalysis, reagent strip without microscopy New Mcclure MD Work Phone: Start: 03-11-2021 Arthrocentesis aspir &/inj major jt/bursa w/o us New Mcclure MD Work Phone: Start: 11-19-2020 Intra-articular injection [facility] ??? Phone: Start: 11-21-2019 Intra-articular injection [facility] ??? Phone: Start: 04-18-2019 Intra-articular injection [facility] ??? Phone: Start: 11-24-2018 End: 11-24-2018 CBC, EDIF, PLATELET [employer] Phone: Start: 11-23-2018 End: 11-23-2018 Blood count complete auto&auto difrntl wbc [employer] Phone: Start: 11-22-2018 End: 11-22-2018 Blood count complete auto&auto difrntl wbc [employer] Phone: Start: 11-21-2018 End: 11-21-2018 X-ray of left knee [facility] Phone: Start: 11-21-2018 End: 11-21-2018 Cell count misc body fluids w/differential count [facility] ??? Phone: Start: 11-21-2018 End: 11-21-2018 Cul bact melissa aerobic isol xcpt ur blood/stool [facility] ??? Phone: Start: 11-21-2018 End: 11-21-2018 Culture bacterial any source anaerobic iso&id [facility] ??? Phone: Start: 11-21-2018 End: 11-21-2018 Culture fngi mold/yeast prsmptv oth xcpt blood [facility] ??? Phone: Start: 11-21-2018 End: 11-21-2018 Culture tubercle/oth acid-fast bacilli any isol [facility] ??? Phone: Start: 11-21-2018 End: 11-21-2018 REPEAT ABO/RH (D) TYPING [facility] ??? Phone: Start: 11-21-2018 End: 11-21-2018 Cultyp nuc acid amp prb cult/isolate ea orgnism [facility] Phone: Start: 10-23-2018 End: 10-23-2018 Standard ECG New Mcclure Work Phone: Plan of Treatment Date Care Activity Detail Author Start: 11-03-2024 Potassium [Moles/vol ume] in Serum or Plasma POTASSIUM [facility] Start: 04-27-2024 Potassium [Moles/vol ume] in Serum or Plasma POTASSIUM [facility] Start: 04-25-2024 End: 04-25-2024 Patient encounter procedure 04/25/2024 11:40 AM EDT Office Visit [facility] [address] [place] [id number] Rajinder Green, GULLET SLITTER-GEAR CODING MACHINE OPERATOR [address] [place] [id number] [facility] Start: 11-29-2023 End: 11-29-2023 Evaluation and management of inpatient [facility] Comment on above: Failed total left kn ee replacement, initial encounter REVISION ARTHROPLAST Y KNEE Start: 11-29-2023 End: 11-29-2023 Revj tot knee arthrp fem&entire tibial compone REVISION ARTHROPLASTY KNEE Failed total left knee replacement, initial encounter 11/29/2023 10:00 AM EST [facility] Start: 11-03-2023 End: 12-05-2023 PREPARE TO TRANSFUSE RED BLOOD CELLS PREPARE TO TRANSFUSE RED BLOOD CELLS Blood Bank Routine Preop testing Expected: 11/03/2023, Expires: 12/05/2023 [facility] Work Phone: Comment on above: Expected: 11/03/2023 , Expires: 12/05/2023 Start: 09-01-2023 End: 09-01-2023 Patient encounter procedure 09/01/2023 1:00 PM EDT Office Visit [facility] [address] [place] [id number] New Mcclure MD [address] [place] [phone] [facility] Start: 07-08-2023 COVID-19 VACCINE ( season) COVID-19 VACCINE ( season) [facility] Start: 07-08-2023 Influenza vaccination INFLUENZA VACC INE (#1) [facility] Start: 04-14-2023 End: 04-14-2023 ambulatory 04/14/2023 Pre-Operative Nurse Assessment Internal Medicine [facility] Pre Ad[facility] Start: 12-24-2022 COVID-19 VACCINE (5 - Pfizer series) COVID-19 VACCINE (5 - Pfizer series) [facility] Start: 07-08-2021 Influenza vaccination INFLUENZ A VACCINE (Season Ended) [facility] Start: 11-19-2020 End: 11-19-2020 Office Visit 11/19/2020 Office Visit OrthopaedicNew Castellano MD [address] [place] [address] [phone] [facility] Start: 11-24-2019 Potassium molar conc POTASSIUM [facility] Work Phone: Start: 11-23-2019 Potassium molar conc POTASSIUM [facility] Work Phone: Start: 11-22-2019 End: 11-22-2019 Office Visit 11/22/2019 Office Visit OrthopaedicNew Castellano MD [address] [place] [address] [phone] [facility] Start: 10-23-2019 Potassium molar conc POTASSIUM [facility] Start: 07-08-2019 Influenza vaccination [facility] Start: 04-18-2019 End: 04-18-2019 Office Visit 04/18/2019 Office Visit OrthopaedicNew Castellano MD [address] [place] [address] [phone] [facility] Start: 03-01-2019 End: 03-01-2019 Office Visit [facility] Comment on above: Arrived History of total kne e arthroplasty, left (Primary Dx) Start: 02-23-2019 End: 03-23-2019 X-ray of left knee XR KNEE LEFT 2 VIEWS Imaging Routine History of total knee arthroplasty, left Expected: 02/23/2019, Expires: 03/23/2019 [facility] Comment on above: Expected: 02/23/2019 , Expires: 03/23/2019 Start: 01-03-2019 End: 01-03-2019 Ambulatory 01/03/2019 Office Visit Orthopaedics New Mcclure MD [address] [place] [address] [phone] [facility] Start: 12-28-2018 End: 01-25-2019 X-ray of left knee XR KNEE LEFT 2 VIEWS Imaging Routine History of total knee arthroplasty, left Expected: 12/28/2018, Expires: 01/25/2019 [facility] Comment on above: Expected: 12/28/2018 , Expires: 01/25/2019 Start: 12-14-2018 End: 12-14-2018 Ambulatory [facility] Start: 11-21-2018 Ambulatory 11/21/2018 Pro cedure Pass [facility] Start: 11-21-2018 Inpatient Encounter [facility] Comment on above: REVISION ARTHROPLAST Y KNEE - extensor mech reconstruction - left Extensor mechanism m alalignment Start: 10-23-2018 End: 10-23-2018 Ambulatory 10/23/2018 Pre-Operative Nurse Assessment Internal Medicine [facility] Pre Admission Start: 07-21-2018 Finding of potassium level (finding) POTASSIUM [facility] Work Phone: Start: 2018 Pneumococcal vaccination [facility] Start: 07-08-2018 Influenza vaccination INFLUENZA VACC INE (#1) [facility] Work Phone: Start: 2003 Colonoscopy [facility] Work Phone: Start: 2003 Protein mass conc COLON CANCER SCREENING DISCUSSION [facility] Work Phone: Start: 2003 Zoster vaccine hzv l damian for subcutaneous use ZOSTER (SHINGLES) VACCINE (1 of 2) [facility] Start: 1998 Screening for malign ant neoplasm of colon COLORECTAL CANCER SCREENING DISCUSSION [facility] Start: 1993 Fasting lipid profile LIPID SCREENIN G [facility] Work Phone: Start: 1993 Lipid panel LIPID SCREENING [facility] Start: 1993 Protein mass conc MAMMOGRAM SC REENING DISCUSSION [facility] Work Phone: Start: 1993 Screening for malign ant neoplasm of breast MAMMOGRAM SCREENING DISCUSSION [facility] Start: 1993 Screening mammography MAMMOGRA M SCREENING DISCUSSION [facility] Work Phone: Start: 1974 Screening for malign ant neoplasm of cervix [facility] Start: 1972 Third diphtheria, tetanus and acellular pertussis (DTaP) vaccination TDAP (ADULT) [facility] Start: 1971 Tetanus vaccination TETANUS [facility] Work Phone: Start: 1969 COVID-19 VACCINE (1) COVID-19 VACCIN E (1) [facility] Start: 1953 Hepatitis C screening HEPATITI S C VIRUS SCREENING [facility] Start: 1953 Tetanus vaccination TETANUS [facility] Start: 1953 End: 1953 Hepatitis C antibody, confirmatory test HEPATITIS C VIRUS SCREENING [facility] Work Phone: Start: 1953 End: 1953 Screening for osteoporosis DEXA SCAN DISCUSSION [facility] ACID FAST CULTURE [facility] Work Phone: Comment on above: ONE TIME for 1 Occur rences starting 11/21/2018 ANAEROBE CULTURE [facility] Work Phone: Comment on above: ONE TIME for 1 Occur rences starting 11/21/2018 BACTERIAL CULTURE AN D DIRECT SMEAR, LESION, TISSUE, DEVICE BACTERIAL CULTURE AND DIRECT SMEAR, LESION, TISSUE, DEVICE Routine Extensor mechanism malalignment ONE TIME for 1 Occurrences starting 11/21/2018 [facility] Work Phone: Comment on above: ONE TIME for 1 Occur rences starting 11/21/2018 Basic metabolic 2000 panel - Serum or Plasma BASIC METABOLIC PANEL Routine Pre-op exam Ordered: 10/23/2018 [facility] Work Phone: Comment on above: Ordered: 10/23/2018 BODY FLUID CULTURE A ND DIRECT SMEAR BODY FLUID CULTURE AND DIRECT SMEAR Routine 11/21/2018 11:00 AM EST [facility] Work Phone: CBC, EDIF, PLATELET CBC, EDIF, P LATELET Routine Pre-op exam Ordered: 10/23/2018 [facility] Work Phone: Comment on above: Ordered: 10/23/2018 FUNGUS CULTURE [facility] Work Phone: Comment on above: ONE TIME for 1 Occur rences starting 11/21/2018 Hemoglobin A1c/Hemoglobin.total mass fraction (Bld) HEMOGLOBIN A1C Routine Pre-op exam Ordered: 10/23/2018 [facility] Work Phone: Comment on above: Ordered: 10/23/2018 LARGE JOINT INJECTIO N: R knee LARGE JOINT INJECTION: R knee Procedures Routine Right knee pain, unspecified chronicity 04/18/2019 4:00 PM EDT [employer] PROTIME-INR PROTIME-INR STAT Pre-op exam Ordered: 10/23/2018 [facility] Work Phone: Comment on above: Ordered: 10/23/2018 Radiography for bone length studies XR BONE LENGTH STUDY Imaging Routine Hx of total knee arthroplasty, right 09/01/2023 12:48 PM EDT [employer] Radiography of hip XR HIP WITH P NICOLAS RIGHT Imaging Routine Right hip pain 03/01/2019 2:59 PM EDT [employer] SCREEN: MRSA ONLY, N VIVI (ISOLATION SCREEN) SCREEN: MRSA ONLY, NARES (ISOLATION SCREEN) Routine Pre-op exam Ordered: 10/23/2018 [facility] Work Phone: Comment on above: Ordered: 10/23/2018 Standard ECG ECG Routine Pre- op exam 10/23/2018 8:53 AM [facility] Work Phone: TISSUE CULTURE TISSUE CULTURE R outine 11/21/2018 11:00 AM [facility] Work Phone: TYPE AND SCREEN - POSSIBLE TRANSFUSION TYPE AND SCREEN - POSSIBLE TRANSFUSION Routine Pre-op exam Ordered: 10/23/2018 [facility] Work Phone: Comment on above: Ordered: 10/23/2018 TYPE AND SCREEN - POSSIBLE TRANSFUSION TYPE AND SCREEN - POSSIBLE TRANSFUSION Blood Bank Today Preop testing 11/03/2023 9:50 AM [facility] [employer] URINALYSIS, MACRO URINALYSIS, MA LEAD 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 Routine Pre-op exam Ordered: 10/23/2018 [facility] Work Phone: Comment on above: Ordered: 10/23/2018 X-ray of left knee [facility] Work Phone: End: 03-01-2019 X-ray of left knee XR KNEE LEFT 2 VIEWS Imaging Routine History of total knee arthroplasty, left 1 Occurrences starting 03/01/2019 until 03/01/2019 [employer] Comment on above: 1 Occurrences starti ng 03/01/2019 until 03/01/2019 XR Knee - left 2 Views XR KNEE L EFT 2 VIEWS Imaging Routine Left knee pain, unspecified chronicity 03/18/2023 11:12 AM [employer] XR Knee - left 3 Views XR KNEE L EFT 3 VIEWS Imaging Routine Hx of total knee arthroplasty, left 09/01/2023 12:48 PM [employer] Work Phone: XR Knee - right 2 Views XR KNEE RIGHT 2 VIEWS Imaging Routine Right knee pain, unspecified chronicity 03/18/2023 11:12 AM [employer] XR Knee - right 3 Views XR KNEE RIGHT 3 VIEWS Imaging Routine Hx of total knee arthroplasty, right 05/19/2023 2:33 PM [employer] Work Phone: XR Knee - right 3 Views XR KNEE RIGHT 3 VIEWS Imaging Routine Hx of total knee arthroplasty, right 09/01/2023 12:48 PM EDT [facility] Immunizations Immunization Date Immunization Notes Care Provider Dio patel 08-23-2022 influenza virus vaccine, unspecified formulation Rajinder Green [employer]UL[employer]TER[employer]GE[employer] CODING MACHINE OPERATOR Work Phone: [employer] 08-18-2015 influenza virus vaccine, unspecified formulation Hairashmi Torres [facility] Work Phone: Payers Date Payer Category Payer Unknown GENERIC PAYOR ME DICARE SUPPLEMENT [id number] 2022-Present [phone] [address] [place] [address] [id number] 2020 Self-pay [id number] 2017 Medicare MEDICARE MEDICAR E A AND B xxxxxxxxxxx 2017-Present [place] xxxxxxxxxxx [id number] 2017 Medicare MEDICARE MEDICAR E A AND B [id number] 2017-Present [place] [id number] 2017 Medicare [id number] 2017 Medicare MEDICARE MEDICAR E A AND B [id number] 2017-Present [address] [place] [address] [id number] 2017 Unknown JORDIN BATES ADITIONAL xxxxxxxxxxxx 2017-Present xxxxxxxxxxxx [id number] .[id number] 2017 Unknown ANTHEM ANTHEM TR ADITIONAL [id number] 2017-Present [id number] .[id number] 1959 Blue Cross Blue Shield [id number] 2.16.840.1.918851.19 1953 Unknown [id number] 2.16.840.1.404745.3.579.2 .593 1953 Unknown [id number] 2.16.840.1.299864.3.579.2 .593 1953 Unknown [id number] 2.16.840.1.242759.3.579.2 .593 1953 Unknown [id number] 2.16.840.1.788294.3.579.2 .593 1953 Unknown [id number] 2.16.840.1.286768.3.579.2 .593 1953 Unknown [id number] 2.16.840.1.250003.3.579.2 .593 1953 Unknown [id number] 2.16.840.1.151087.3.579.2 .593 1953 Unknown [id number] 2.16.840.1.975107.3.579.2 .593 1953 Unknown [id number] 2.16.840.1.381983.3.579.2 .983 1953 Unknown [id number] 2.16.840.1.677906.3.579.2 .983 1953 Unknown [id number] 2.16.840.1.421647.3.579.2 .983 1953 Unknown [id number] 2.16.840.1.194527.3.579.2 .983 1953 Unknown [id number] 2.16.840.1.332000.3.579.2 .983 1953 Unknown [id number] 2.16.840.1.185110.3.579.2 .983 1955 Unknown [id number] 2.16.840.1.870869.3.579.2 .983 1955 Unknown [id number] 2.16.840.1.984254.3.579.2 .983 1955 Unknown [id number] 2.16.840.1.017937.3.579.2 .983 Private Health Insurance [id number] Unknown [facility] [id number] Unknown [id number] 2.16.840.1.653292.3.579.2 .531 Social History Date Type Detail Facility Start: 10-23-2018 End: 03-18-2023 Tobacco smoking status NHIS Never smoker [facility] Start: 1955 Sex Assigned At Not on file O [facility] Work Phone: Start: 11-21-2019 End: 10-20-2023 Alcohol intake Current non-drinker of alcohol (finding) [employer] Start: 11-19-2020 End: 03-18-2023 Tobacco use and exposure Never used [employer] Start: 05-19-2023 End: 10-20-2023 Sex Assigned At [facility] Other Start: 05-19-2023 End: 10-20-2023 History of Social function [facility] Gender identity [facility]ifies as fe [facility] Start: 04-16-2023 End: 04-26-2023 Exposure to SARS-CoV-2 (event) Not sure [facility] Start: 1955 Sex Assigned At Female F [facility] Medical Equipment Procedure Code Equipment Code Equipment Origin al Text Equipment Identifier Dates Prolite Mesh 25. 4 Cm X 35.5cm Start: 11-21-2018 Palacos R 1x40 Single - [id number] Start: 11-21-2018 Prolite Mesh 25. 4 Cm X 35.5cm Start: 11-21-2018 Palacos R 1x40 Single - [id number] Start: 11-21-2018 Prolite Mesh 25. 4 Cm X 35.5cm Start: 11-21-2018 Palacos R 1x40 Single - [id number] Start: 11-21-2018 Prolite Mesh 25. 4 Cm X 35.5cm Start: 11-21-2018 Palacos R 1x40 Single - [id number] Start: 11-21-2018 Prolite Mesh 25. 4 Cm X 35.5cm Start: 11-21-2018 Prolite Mesh 25. 4 Cm X 35.5cm Start: 11-21-2018 Palacos R 1x40 Single - [id number] Start: 11-21-2018 Palacos R 1x40 Single - [id number] Start: 11-21-2018 Prolite Mesh 25. 4 Cm X 35.5cm Start: 11-21-2018 Prolite Mesh 25. 4 Cm X 35.5cm Start: 11-21-2018 Palacos R 1x40 Single - [id number] Start: 11-21-2018 Palacos R 1x40 Single - [id number] Start: 11-21-2018 Prolite Mesh 25. 4 Cm X 35.5cm Start: 11-21-2018 Prolite Mesh 25. 4 Cm X 35.5cm Start: 11-21-2018 Palacos R 1x40 Single - [id number] Start: 11-21-2018 Palacos R 1x40 Single - [id number] Start: 11-21-2018 Prolite Mesh 25. 4 Cm X 35.5cm Start: 11-21-2018 Prolite Mesh 25. 4 Cm X 35.5cm Start: 11-21-2018 Palacos R 1x40 Single - [id number] Start: 11-21-2018 Palacos R 1x40 Single - [id number] Start: 11-21-2018 Prolite Mesh 25. 4 Cm X 35.5cm Start: 11-21-2018 Prolite Mesh 25. 4 Cm X 35.5cm Start: 11-21-2018 Palacos R 1x40 Single - [id number] Start: 11-21-2018 Palacos R 1x40 Single - [id number] Start: 11-21-2018 Prolite Mesh 25. 4 Cm X 35.5cm Start: 11-21-2018 Prolite Mesh 25. 4 Cm X 35.5cm Start: 11-21-2018 Palacos R 1x40 Single - [id number] Start: 11-21-2018 Palacos R 1x40 Single - [id number] Start: 11-21-2018 Prolite Mesh 25. 4 Cm X 35.5cm Start: 11-21-2018 Prolite Mesh 25. 4 Cm X 35.5cm Start: 11-21-2018 Palacos R 1x40 Single - [id number] Start: 11-21-2018 Palacos R 1x40 Single - [id number] Start: 11-21-2018 Prolite Mesh 25. 4 Cm X 35.5cm [id number] Start: 11-21-2018 Palacos R 1x40 Single - [id number] Start: 11-21-2018 Prolite Mesh 25. 4 Cm X 35.5cm Start: 11-21-2018 Prolite Mesh 25. 4 Cm X 35.5cm Start: 11-21-2018 Palacos R 1x40 Single - [id number] Start: 11-21-2018 Palacos R 1x40 Single - [id number] Start: 11-21-2018 Prolite Mesh 25. 4 Cm X 35.5cm Start: 11-21-2018 Palacos R 1x40 Single - [id number] Start: 11-21-2018 Prolite Mesh 25. 4 Cm X 35.5cm Start: 11-21-2018 Prolite Mesh 25. 4 Cm X 35.5cm Start: 11-21-2018 Palacos R 1x40 Single - [id number] Start: 11-21-2018 Palacos R 1x40 Single - [id number] Start: 11-21-2018 Attune Tibial In sert Fixed Bearing Posterior Stabilized [id number] Start: 04-26-2023 Clinical Notes 03-11-2021 to 11-03-2023 Shayla Garza RN - 11/03/2023 10:00 AM ESTChadi Almaguer RN - 11/03/2023 10:00 AM ESTPatient InstructionsAddendum Note - Everton Ball RN - 11/03/2023 10:00 AM EST Note Date & Type Note Facility 11-03-2023 History of Presen t illness Narrative PAT- ADDITIONAL QUESTIONS Reviewed medication list with patient, asked and added any additional medicines, vitamins, supplements and diet pills or appetite suppressants to the patient Med Review. Also Reconciled Medications from outside sources to Med Review. Patient verified Med Review is accurate. 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 4.40 METs CHEST PAIN (SEE ADDITIONAL CHEST PAIN QUESTIONNAIRE IF APPLICABLE) no HISTORY OF HEART CATH/STENT PLACEMENT no HISTORY OF ANESTHESIA COMPLICATION FAMILY HISTORY OF ANESTHESIA COMPLICATION (PONV, PROLONGED SEDATION, MALIGNANT HYPERTHERMIA, etc. ) Prolonged sedation, freezing cold no MEDICAL CLEARANCE, CARDIOLOGY CLEARANCE [place]oy 11/11 0930 DIFFICULT IV PLACEMENT Butterfly use in the past for lab draw, veins roll LIMB RESTRICTIONS no MEDICAL IMPLANTS (DIABETIC, NERVE STIMULATORS, POWER PORTS, LOOP RECORDER, ETC) Left knee, rt hip, rt knee, spine fusion HISTORY OF ANTIBIOTIC RESISTANT BACTERIAL INFECTION (MRSA, C-DIFF) no VISION (glasses, contacts, or other impairments) glasses HEARING AIDS OR ANY TROUBLE HEARING no DIFFICULTY SWALLOWING no DENTAL APPLIANCES OR PROBLEMS (dentures, partials, loose teeth, missing teeth, broken teeth, caps or crowns) Cap, bridge BETA HEIDI USE yes STEROIDS IN THE PAST 2 YEARS yes HISTORY OF BLOOD TRANSFUSION/REACTION Yes, no adverse reaction. CULTURAL OR MANDAEISM BELIEFS THAT WILL AFFECT CARE no DIETARY RESTRICTIONS no CONCERNS FOR PERSONAL SAFETY no Have you been diagnosed with a concussion in the past 6 months? no Have you tested positive for COVID 19? (if pt does breathing is not back to baseline please order CXR) No Have you had your COVID vaccination? no ADVANCE DIRECTIVES Yes, on file with [employer] IF PATIENT HAS NOT BEEN DIAGNOSED WITH SLEEP APNEA PLEASE COMPLETE STOP-BANG STOP Do you SNORE loudly (louder than talking or loud enough to be heard through closed doors)? no Has anyone OBSERVED you stop breathing during your sleep? no Do you often feel TIRED, fatigued, or sleepy during daytime? no Do you have or are you being treated for high blood PRESSURE? yes BMI more than 35kg/m2? no AGE over 50 years old? Yes NECK circumference > 16 inches (40 cm)? no GENDER: Male? no TOTAL SCORE 2 PT ACCEPTED REFERRAL na High risk of DUTCH: Yes 5-8 Intermediate risk of DUTCH: Yes 3-4 Low risk of DUTCH: Yes 0-2 * See DEPARTMENT OF SURGERY AND ANESTHESIA REFERRAL FOR SLEEP STUDY AND/OR PULMONARY CONSULT paper form signed by patient in chart. Verified procedure and surgery date with patient. Reviewed pt history and medications with patient. Pt was given instructions for upcoming surgery and given opportunity to ask questions. Pt verbalized understanding of instructions. 11/03/2023 1010 blood pressure elevated today at PAT. Reports have white coat syndrome. It's never high like that when I check it at home. Denies headache or complaints. Reports that she will check the BP on arrival home. Encouraged to discuss with pcp if remains elevated, voiced understanding. Discharged ambulatory, gait steady with walker. documented in this encounter [facility] 11-03-2023 Instructions Everton Ball RN - 11/03/2023 10:[address] Mcclure's office will call you for your arrival time, 1-2 business days before your scheduled surgery. Please review your surgery checklist and bring your guide or booklet the day of surgery. Pre-Admission Testing Dept. [phone] Call if you have any changes in your medications, questions about your medication instructions or have additional health information you want added to your chart. Refer to the Pre-Op Bathing Instructions and use the wipes the night before surgery on pages 21-22. Please refer to pages 10-11 for additional medicines and supplements to avoid prior to surgery. STOP any NSAIDS (Ibuprofen, Motrin, Aleve, Advil, etc.), fish oil, other supplements, energy drinks and essential oils 7 days before your surgery or as instructed by your physician. STOP diet pills and appetite suppressants 14 days before surgery or as instructed by your physician. *If you are prescribed any new medicines between your PAT appointment and your surgery date, please call the PAT office for specific instructions regarding you new medicines.* No alcohol during the 48-hours prior to your surgery. No illicit drugs during the 5 days prior to your surgery. Nothing by mouth after midnight except for water and Gatorade/powerade which can be consumed up until you leave for the hospital. DIRECTIONS: Park in the front main [facility] facing [address]. Enter through the front entrance and [facility] Thank you for allowing us the privilege to care for you! *If you are prescribed any new medicines between your PAT appointment and your surgery date, please call the PAT office for specific instructions regarding you new medicines.* Please record date and time of your medications on this sheet and bring this with you on the day of surgery. Yellow - take the day of surgery [place] - hold according to the doctor's instructions or pre-admission testing instructions Current Outpatient Medications Medication Sig Acetaminophen 325 MG tablet 650 mg, Oral, EVERY 4 HOURS NEEDED, Do not exceed 4000mg of Tylenol in 24 hour period. CONTINUE, but DO NOT take the morning of surgery. Last Dose: Date Time Alpha-Lipoic Acid 200 MG capsule 1 capsule, DAILY STOP TAKING 7 DAYS BEFORE YOUR SURGERY Last Dose: Date Time amoxicillin 250 MG capsule 500 mg, Oral, EVERY 8 HOURS, 4 capsules 1 hour before procedure Continue as normal Last Dose: Date Time Ascorbic acid 500 MG tablet 500 mg, Oral, DAILY STOP TAKING 7 DAYS BEFORE YOUR SURGERY Last Dose: Date Time Biotin 1 MG capsule Oral, DAILY STOP TAKING 7 DAYS BEFORE YOUR SURGERY Last Dose: Date Time carveDILOL 12.5 MG tablet 12.5 mg, Oral, 2 TIMES DAILY CONTINUE AND TAKE THE MORNING OF SURGERY WITH SIP OF WATER Last Dose: Date Time Diclofenac Sodium 1 % Gel gel Diclofenac Diclofenac Sodium Active 4 GM Topical Four times daily October 01, 2020 10:38am 10-01-2020 [facility] ([id number]) STOP 7 DAYS BEFORE YOUR SURGERY LAST DOSE: DATE TIME ___ Doxazosin 4 MG tablet 4 mg, Oral, DAILY STOP TAKING 24 hours BEFORE YOUR SURGERY Last Dose: Date Time Folic acid 1 MG tablet 1,000 mcg, Oral, DAILY CONTINUE, but DO NOT take the morning of surgery. Last Dose: Date Time Fsxijdrdtpy-Oasvikcua-Sma C-Mn (Glucosamine 1500 Complex) capsule Oral, DAILY STOP TAKING 7 DAYS BEFORE YOUR SURGERY Last Dose: Date Time Hydroxychloroquine 200 MG tablet 200 mg, Oral, 2 TIMES DAILY ASK ABOUT STOPPING THIS MEDICINE AT YOUR CLEARANCE APPOINTMENT. Last Dose: Date Time ibandronate 150 MG Tab 150 mg, Oral, EVERY 30 DAYS CONTINUE, but DO NOT take the morning of surgery. Last Dose: Date Time Leflunomide 20 MG tablet 20 mg, Oral, DAILY, ASK ABOUT STOPPING THIS MEDICINE AT YOUR CLEARANCE APPOINTMENT. Last Dose: Date Time lisinopril 40 MG tablet 40 mg, Oral, DAILY CONTINUE, but DO NOT take the morning of surgery. Last Dose: Date Time methotrexate 2.5 MG tablet EVERY 7 DAYS ASK ABOUT STOPPING THIS MEDICINE AT YOUR CLEARANCE APPOINTMENT. Last Dose: Date Time methylPREDNIsolone 4 MG Tab Therapy Pack tablet NEEDED CONTINUE AND TAKE THE MORNING OF SURGERY WITH SIP OF WATER, if you are taking this med at the time fo surgery Last Dose: Date Time Oyster Shell Calcium w/D 500-5 MG-MCG tablet Oral, DAILY STOP TAKING 7 DAYS BEFORE YOUR SURGERY Last Dose: Date Time pantoprazole [address] 40 mg, Oral, DAILY EARLY EVENING CONTINUE, but DO NOT take the morning of surgery. Last Dose: Date Time predniSONE 5 MG tablet 5 mg, Oral, NEEDED CONTINUE AND TAKE THE MORNING OF SURGERY WITH SIP OF WATER, if you are taking this med at the time fo surgery Last Dose: Date Time pregabalin 25 MG capsule every 12 hours. CONTINUE AND TAKE THE MORNING OF SURGERY WITH SIP OF WATER Last Dose: Date Time therapeutic multivitamin-minerals tablet 1 tablet, Oral, DAILY AT BEDTIME STOP TAKING 7 DAYS BEFORE YOUR SURGERY Last Dose: Date Time tiZANidine 4 MG tablet 4 mg, Oral, EVERY 6 HOURS NEEDED CONTINUE, but DO NOT take the morning of surgery. Last Dose: Date Time traMADol 50 MG tablet 1 tablet, Oral, 3 TIMES DAILY NEEDED Continue and take the morning of surgery, IF NEEDED Last Dose: Date Time triamterene-hydrochlorothiazide 37.5-25 MG Cap 1 capsule, Oral, NEEDED CONTINUE, but DO NOT take the morning of surgery. Last Dose: Date Time TURMERIC PO as directed Orally STOP TAKING 7 DAYS BEFORE YOUR SURGERY Last Dose: Date Time documented in this encounter [facility] 11-03-2023 Miscellaneous Notes Addended by: EVERTON BALL on: 10/27/2023 10:19 AM Modules accepted: Orders Addended by: EVERTON BALL on: 11/01/2023 01:36 PM Modules accepted: Orders documented in this encounter [facility] 11-03-2023 Note Addended by: EVERTON QUIROGA on: 10/27/2023 10:19 AM Modules accepted: Orders [facility] 11-03-2023 Note Addended by: EVERTON QUIROGA on: 11/01/2023 01:36 PM Modules accepted: Orders [facility] 09-01-2023 History of Presen t illness Narrative Ortho Nurse - Established Patient Intake Room#: 1 ----- 4 month f\u R TKR and is doing great. Also concerned about left knee and that it keeps slipping out of place. No pain with the knee just instability and would like it looked at again. Date: 09/01/2023 1:06 PM Patient: Danyelle Haskins MR#: [id number] : 1955 Age: 68 y.o. Referring Physician: Self, Self Insurance: Payor: MEDICARE / Plan: MEDICARE A AND B / Product Type: *No Product type* / Chief Complaint Patient presents with Left Knee - Pain Right Knee - Pain Visit Vitals Temp 98.2 F (36.8 C) Ht 1.702 m (5' 7 ) Wt 102.5 kg (226 lb) BMI 35.40 kg/m Pain 1. Are you having pain? 2. On a scale from 1-10: Presence of Pain: complains of pain/discomfort Pain Location: knee, left Select Pain Scale: DVPRS (Defense and Veterans Pain Rating Scale) (Adult-Cognitively Intact) Pain Location: knee, left Select Pain Scale: DVPRS (Defense and Veterans Pain Rating Scale) (Adult-Cognitively Intact) Recent Labs No results found for: CRP No results found for: SEDRATE Lab Results Component Value Date WBC 5.6 04/27/2023 HGB 9.7 (L) 04/27/2023 HCT 28.8 (L) 04/27/2023 PLATELET 202 04/27/2023 MCV 101.4 (H) 04/27/2023 History Past Medical History: Diagnosis Date Pneumonia 2010 History of blood transfusion 2012 bleeding ulcer; pt states had a reaction but does not remember what occured Active advance directive Living Will and Health Care POA Anemia Fe deficiency 30 years ago Anesthesia complication prolonged sedation, freezing cold Ankle swelling bilateral Arthritis Back pain Blood transfusion reaction pt unsure of reaction type Connective tissue disease non-specific Depression Easy bruising Essential hypertension, benign History of recent steroid use back injections Insomnia Joint pain Leg pain sciatica radiating to right posterior leg to knee Muscle weakness arms and legs; uses cane or walker for ambulation 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 Numbness feet Osteoarthritis Poor tolerance for activity less than 4 mets due to neuropathy, arthritis, chronic back pain RSD (reflex sympathetic dystrophy) Swelling of multiple joints L knee and right hip Ulcer gastric Use of cane as ambulatory aid Wears glasses Past Surgical History: Procedure Laterality Date ARTHROPLASTY KNEE TOTAL Right 04/26/2023 Laterality: Right; Surgeon: New Mcclure MD; Location: [facility] REVISION ARTHROPLASTY KNEE Left 11/21/2018 Laterality: Left; Surgeon: New Mcclure MD; Location: [facility] EXTRACTION EXTRACAPSULAR CATARACT W/ IMPLANT (ECCE IOL) Bilateral 2018 [facility] TREATMENT OPEN PATELLAR FX W/ INTERNAL FIXATION OR PATELLECTOMY Left 07/18/2017 Laterality: Left; Surgeon: New Mcclure MD; Location: [facility] PATELLECTOMY/HEMIPATELLECTOMY Left 07/18/2017 Laterality: Left; Surgeon: New Mcclure MD; Location: [facility] EXCISION SKIN LESION 07/2016 ARTHROPLASTY KNEE TOTAL Left 2014 OTHER SURGICAL 2012 back fusion l2,3,4,5 KNEE ARTHROSCOPY Right 2006 HYSTERECTOMY 2006 [facility] DIAGNOSTIC/THERAPEUTIC NONOBSTETRICAL 2005 x2 OTHER SURGICAL 11/1998 eye lid celanzion EXCISION GANGLION CYST WRIST Right 1982 EXCISION GANGLION CYST Left EXCISION SKIN LESION sebaceous cyst off back HIP REPLACEMENT Right 2017 OTHER SURGICAL plantar wart removed OTHER SURGICAL cyst off top of head OTHER SURGICAL uterine ablation OTHER SURGICAL joint replacement TONSILLECTOMY Family History: Her family history includes Bleeding or Clotting Problems in her mother; Cancer in her father and sister; Diabetes in her sister; Heart Disease - Other in her mother; Hypertension in her mother. Social History: Her reports that she has never smoked. She has never used smokeless tobacco. She reports that she does not drink alcohol and does not use drugs. Outpatient Medications Prior to Visit Medication Sig Dispense Refill amoxicillin 250 MG capsule Take 2 capsules by mouth every 8 hours. 4 capsules 1 hour before procedure carveDILOL 12.5 MG tablet Take 1 tablet by mouth 2 times daily. Diclofenac Sodium 1 % Gel gel Diclofenac Diclofenac Sodium Active 4 GM Topical Four times daily October 01, 2020 10:38am 10-01-2020 [facility] ([id number]) Doxazosin 4 MG tablet Take 1 tablet by mouth daily. Hydroxychloroquine 200 MG tablet Take 1 tablet by mouth 2 times daily. ibandronate 150 MG Tab Take 1 tablet by mouth every 30 days. Leflunomide 20 MG tablet Take 1 tablet by mouth daily. 100mg loading dose only for 3 days lisinopril 40 MG tablet Take 1 tablet by mouth daily. pantoprazole [address] Take 1 tablet by mouth every evening at 6 PM. predniSONE 5 MG tablet Take 1 tablet by mouth as needed (for flair up of whole body). pregabalin 25 MG capsule TAKE 1 CAPSULE BY MOUTH IN THE MORNING AND 1 CAPSULE IN THE AFTERNOON therapeutic multivitamin-minerals tablet Take 1 tablet by mouth at bedtime. 30 tablet 0 tiZANidine 4 MG tablet Take 1 tablet by mouth every 6 hours as needed for Muscle spasms. triamterene-hydrochlorothiazide 37.5-25 MG Cap Take 1 capsule by mouth as needed (edema). Acetaminophen 325 MG tablet Take 2 tablets by mouth every 4 hours as needed for Mild Pain. Do not exceed 4000mg of Tylenol in 24 hour period. (Patient not taking: Reported on 09/01/2023) 50 tablet 1 apixaban 2.5 MG tablet Take 1 tablet by mouth every 12 hours. This medication is for blood clot prevention (Patient not taking: Reported on 09/01/2023) 70 tablet 0 Docusate 100 MG capsule Take 1 capsule by mouth 2 times daily. Hold for loose stools. (Patient not taking: Reported on 09/01/2023) 60 capsule 0 Meloxicam 7.5 MG tablet Take 1 tablet by mouth daily. Take with food. (Patient not taking: Reported on 09/01/2023) 30 tablet 0 oxyCODONE 5 MG tablet Take one to two tabs every 4-6 hours as needed for severe pain. Wean as tolerated (Patient not taking: Reported on 09/01/2023) 30 tablet 0 Sucralfate 1 g tablet Take 1 tablet by mouth 2 times daily. While on NSAID therapy (Patient not taking: Reported on 09/01/2023) 84 tablet 0 No facility-administered medications prior to visit. Allergies: She is allergic to ciprofloxacin, gralise [gabapentin (once-daily)], alendronate, gabapentin, oxcarbazepine, bactrim [sulfamethoxazole-trimethoprim], and levofloxacin. HPI: Patient is here today for evaluation of left knee pain. Primary complaint is pain, impairment in the knee and a decreased quality of life secondary to her left knee pain. She presents with a highly complex array of symptoms upon exam today. History of left TKA. History of periprosthetic patella fracture. History of extensor mechanism reconstruction on 11/21/18. The pain radiates locally, not associated with numbness or tinging. She has a lot of instability with it - fearful of falling on a daily basis. The more she is on it, the more it hurts. 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 Patient is also here today for evaluation of her operative knee. She is status post right total knee arthroplasty. She cannot be happier with her outcomes. She denies pain and has no additional questions or concerns at this time PHYSICAL EXAM: This is an alert, oriented, and age-appropriate female. She is in no distress. Pleasant and cooperative. EXTREMITIES: The upper extremities have no gross deformities. Normal stability. Skin Intact. 5/5 motor. Intact sensation. Normal neurovascular status. Normal coordination. The lower extremities have no gross deformities. Normal stability. Skin Intact. 5/5 motor. Intact sensation. Normal neurovascular status. Normal coordination. Significant opening. 20-30 degree extensor lag. Painful range of motion. Full motion of hip. No pain. No impingement. No instability. The operative lower extremity is soft, nontender, full and supple motion. No pain, no impingement. No instability. Incision is well healed. She has full return of motion, 0-120 degrees and a stable examination to varus and valgus stress with normal balance throughout the arc of motion. Both extremities have normal neurovascular status. DIAGNOSTIC STUDIES/INTERPRETATION: Plain film radiographs reviewed. Three views of the operative knee show a right total knee arthroplasty in good position and alignment. No evidence of prosthetic implant loosening or migration. Long standing films demonstrate neutral recreation of the mechanical axis through the operative leg. Multiple views of the left knee demonstrate substantial opening, worse than previous visits, consistent with MCL injury. IMPRESSION: 1.) Instability, incompetent MCL, left knee. 2.) History of mechanism reconstruction, periprosthetic patella fracture. 3.) Stable status post right total knee arthroplasty, doing well. PLAN OF CARE FOR RIGHT KNEE: I reviewed my findings with patient. Overall, I am pleased with the outcome of intervention. She has made an excellent recovery thus far. We discussed the stages of healing along with what symptoms that can be expected at current stage. She understands she is at the 50% star of total recovery. We also discussed the benefits of performing a variety of exercises at home, with a physical therapist or local gym. She understands and will continue this in a slow, steady manner. I expect continued improvement in strength and mobility moving forward. I recommend followup at one year for repeat clinical and radiographic examination or sooner if any new symptoms develop. She will call with any questions or concerns in the meantime. PLAN OF CARE FOR LEFT KNEE: In regards to the left knee, we discussed revision to a more constrained knee prosthesis vrs conservative management along with pros and cons. She desires to start the scheduling process for a left total knee revision for optimal care home management. We have discussed in great detail the nature of the diagnosis, the natural history and expected progression which is likely worsening pain, worsening instability with risks of falls, and potentially additional joint and or bone wear. We have discussed the options for treatment including both conservative and operative treatments. We have discussed the risks, benefits, and alternatives to each treatment. Danyelle understands that the potential benefits are reduced pain, improved stability and improved function. Danyelle understands the complex nature of revision surgery and that the elevated major life or limb threatening risks that include, but are not limited to: bleeding, infection, neurovascular injury including foot drop or paralysis, dislocation, component failure, implant loosening, ligament or tendon disruption, fracture, stiffness, chronic pain, chronic disability, need for further surgery, blood clots in the extremities or lungs, stroke, heart attack, loss of limb, and ultimately loss of life. In particular the patient understands the increased and major risks of revision surgery such as karly-prosthetic fracture, infection, component failure or loosening, nerve injury, blood vessel injury, loss of leg or life. He understands surgery may take longer and may require more extensive exposure and potentially osteotomies and that this may lead to additional morbidity or mortality. Despite these risks, the patient would like to proceed with surgical planning for revision left total knee replacement with possible extensor mechanism reconstruction pending intraoperative findings. Today, we will initiate the pre-surgical process including nasal MRSA screening, scheduling an appointment for [facility] and the potential surgical date, and reviewing and signing the consent forms. I have reviewed the findings of the clinical integrated logistics support manager and agree with their assessment. Ortho Nurse - Established Patient Intake Room#: 1 ----- 4 month f\u R TKR and is doing great. Also concerned about left knee and that it keeps slipping out of place. No pain with the knee just instability and would like it looked at again. Date: 09/01/2023 1:06 PM Patient: Danyelle Haskins MR#: [id number] : 1955 Age: 68 y.o. Referring Physician: Self, Self Insurance: Payor: MEDICARE / Plan: MEDICARE A AND B / Product Type: *No Product type* / Chief Complaint Patient presents with Left Knee - Pain Right Knee - Pain Visit Vitals Temp 98.2 F (36.8 C) Ht 1.702 m (5' 7 ) Wt 102.5 kg (226 lb) BMI 35.40 kg/m Pain 1. Are you having pain? 2. On a scale from 1-10: Presence of Pain: complains of pain/discomfort Pain Location: knee, left Select Pain Scale: DVPRS (Defense and Veterans Pain Rating Scale) (Adult-Cognitively Intact) Pain Location: knee, left Select Pain Scale: DVPRS (Defense and Veterans Pain Rating Scale) (Adult-Cognitively Intact) Recent Labs No results found for: CRP No results found for: SEDRATE Lab Results Component Value Date WBC 5.6 04/27/2023 HGB 9.7 (L) 04/27/2023 HCT 28.8 (L) 04/27/2023 PLATELET 202 04/27/2023 MCV 101.4 (H) 04/27/2023 History Past Medical History: Diagnosis Date Pneumonia 2010 History of blood transfusion 2013 bleeding ulcer; pt states had a reaction but does not remember what occured Active advance directive Living Will and Health Care POA Anemia Fe deficiency 30 years ago Anesthesia complication prolonged sedation, freezing cold Ankle swelling bilateral Arthritis Back pain Blood transfusion reaction pt unsure of reaction type Connective tissue disease non-specific Depression Easy bruising Essential hypertension, benign History of recent steroid use back injections Insomnia Joint pain Leg pain sciatica radiating to right posterior leg to knee Muscle weakness arms and legs; uses cane or walker for ambulation 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 Numbness feet Osteoarthritis Poor tolerance for activity less than 4 mets due to neuropathy, arthritis, chronic back pain RSD (reflex sympathetic dystrophy) Swelling of multiple joints L knee and right hip Ulcer gastric Use of cane as ambulatory aid Wears glasses Past Surgical History: Procedure Laterality Date ARTHROPLASTY KNEE TOTAL Right 04/26/2023 Laterality: Right; Surgeon: New Mcclure MD; Location: [facility] OR REVISION ARTHROPLASTY KNEE Left 11/21/2018 Laterality: Left; Surgeon: New Mcclure MD; Location: [facility] OR EXTRACTION EXTRACAPSULAR CATARACT W/ IMPLANT (ECCE IOL) Bilateral 2018 [facility] TREATMENT OPEN PATELLAR FX W/ INTERNAL FIXATION OR PATELLECTOMY Left 07/18/2017 Laterality: Left; Surgeon: New Mcclure MD; Location: [facility] OR PATELLECTOMY/HEMIPATELLECTOMY Left 07/18/2017 Laterality: Left; Surgeon: New Mcclure MD; Location: [facility] OR EXCISION SKIN LESION 07/2016 ARTHROPLASTY KNEE TOTAL Left 2014 OTHER SURGICAL 2011 back fusion l2,3,4,5 KNEE ARTHROSCOPY Right 2007 HYSTERECTOMY 2006 [facility] DIAGNOSTIC/THERAPEUTIC NONOBSTETRICAL 2005 x2 OTHER SURGICAL 11/1998 eye lid celanzion EXCISION GANGLION CYST WRIST Right 1982 EXCISION GANGLION CYST Left EXCISION SKIN LESION sebaceous cyst off back HIP REPLACEMENT Right 2017 OTHER SURGICAL plantar wart removed OTHER SURGICAL cyst off top of head OTHER SURGICAL uterine ablation OTHER SURGICAL joint replacement TONSILLECTOMY Family History: Her family history includes Bleeding or Clotting Problems in her mother; Cancer in her father and sister; Diabetes in her sister; Heart Disease - Other in her mother; Hypertension in her mother. Social History: Her reports that she has never smoked. She has never used smokeless tobacco. She reports that she does not drink alcohol and does not use drugs. Outpatient Medications Prior to Visit Medication Sig Dispense Refill amoxicillin 250 MG capsule Take 2 capsules by mouth every 8 hours. 4 capsules 1 hour before procedure carveDILOL 12.5 MG tablet Take 1 tablet by mouth 2 times daily. Diclofenac Sodium 1 % Gel gel Diclofenac Diclofenac Sodium Active 4 GM Topical Four times daily October 01, 2020 10:38am 10-01-2020 [facility] ([id number]) Doxazosin 4 MG tablet Take 1 tablet by mouth daily. Hydroxychloroquine 200 MG tablet Take 1 tablet by mouth 2 times daily. ibandronate 150 MG Tab Take 1 tablet by mouth every 30 days. Leflunomide 20 MG tablet Take 1 tablet by mouth daily. 100mg loading dose only for 3 days lisinopril 40 MG tablet Take 1 tablet by mouth daily. pantoprazole [address] Take 1 tablet by mouth every evening at 6 PM. predniSONE 5 MG tablet Take 1 tablet by mouth as needed (for flair up of whole body). pregabalin 25 MG capsule TAKE 1 CAPSULE BY MOUTH IN THE MORNING AND 1 CAPSULE IN THE AFTERNOON therapeutic multivitamin-minerals tablet Take 1 tablet by mouth at bedtime. 30 tablet 0 tiZANidine 4 MG tablet Take 1 tablet by mouth every 6 hours as needed for Muscle spasms. triamterene-hydrochlorothiazide 37.5-25 MG Cap Take 1 capsule by mouth as needed (edema). Acetaminophen 325 MG tablet Take 2 tablets by mouth every 4 hours as needed for Mild Pain. Do not exceed 4000mg of Tylenol in 24 hour period. (Patient not taking: Reported on 09/01/2023) 50 tablet 1 apixaban 2.5 MG tablet Take 1 tablet by mouth every 12 hours. This medication is for blood clot prevention (Patient not taking: Reported on 09/01/2023) 70 tablet 0 Docusate 100 MG capsule Take 1 capsule by mouth 2 times daily. Hold for loose stools. (Patient not taking: Reported on 09/01/2023) 60 capsule 0 Meloxicam 7.5 MG tablet Take 1 tablet by mouth daily. Take with food. (Patient not taking: Reported on 09/01/2023) 30 tablet 0 oxyCODONE 5 MG tablet Take one to two tabs every 4-6 hours as needed for severe pain. Wean as tolerated (Patient not taking: Reported on 09/01/2023) 30 tablet 0 Sucralfate 1 g tablet Take 1 tablet by mouth 2 times daily. While on NSAID therapy (Patient not taking: Reported on 09/01/2023) 84 tablet 0 No facility-administered medications prior to visit. Allergies: She is allergic to ciprofloxacin, gralise [gabapentin (once-daily)], alendronate, gabapentin, oxcarbazepine, bactrim [sulfamethoxazole-trimethoprim], and levofloxacin. documented in this encounter [facility] 05-19-2023 History of Presen t illness Narrative Ortho Nurse - Established Patient Intake Room#: 5 Date: 05/19/2023 2:43 PM Patient: Danyelle Haskins MR#: [id number] : 1955 Age: 67 y.o. 3 wks s/p R TKA. She states she is doing well and has minimal pain at times. She is using a walker for assistive device. Referring Physician: Rajinder Green APRN-CNP Insurance: Payor: MEDICARE / Plan: MEDICARE A AND B / Product Type: *No Product type* / Chief Complaint Patient presents with Right Knee - Post Op Visit Visit Vitals Temp 97.6 F (36.4 C) (Temporal) Ht 1.727 m (5' 8 ) Wt 102.5 kg (226 lb) BMI 34.36 kg/m Pain Recent Labs No results found for: CRP No results found for: SEDRATE Lab Results Component Value Date WBC 5.6 04/27/2023 HGB 9.7 (L) 04/27/2023 HCT 28.8 (L) 04/27/2023 PLATELET 202 04/27/2023 MCV 101.4 (H) 04/27/2023 History Past Medical History: Diagnosis Date Pneumonia 2010 History of blood transfusion 2013 bleeding ulcer; pt states had a reaction but does not remember what occured Active advance directive Living Will and Health Care POA Anemia Fe deficiency 30 years ago Anesthesia complication prolonged sedation, freezing cold Ankle swelling bilateral Arthritis Back pain Blood transfusion reaction pt unsure of reaction type Connective tissue disease non-specific Depression Easy bruising Essential hypertension, benign History of recent steroid use back injections Insomnia Joint pain Leg pain sciatica radiating to right posterior leg to knee Muscle weakness arms and legs; uses cane or walker for ambulation 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 Numbness feet Osteoarthritis Poor tolerance for activity less than 4 mets due to neuropathy, arthritis, chronic back pain RSD (reflex sympathetic dystrophy) Swelling of multiple joints L knee and right hip Ulcer gastric Use of cane as ambulatory aid Wears glasses Past Surgical History: Procedure Laterality Date ARTHROPLASTY KNEE TOTAL Right 04/26/2023 Laterality: Right; Surgeon: New Mcclure MD; Location: [facility] REVISION ARTHROPLASTY KNEE Left 11/21/2018 Laterality: Left; Surgeon: New Mcclure MD; Location: [facility] EXTRACTION EXTRACAPSULAR CATARACT W/ IMPLANT (ECCE IOL) Bilateral 2018 [facility] TREATMENT OPEN PATELLAR FX W/ INTERNAL FIXATION OR PATELLECTOMY Left 07/18/2017 Laterality: Left; Surgeon: New Mcclure MD; Location: [facility] OR PATELLECTOMY/HEMIPATELLECTOMY Left 07/18/2017 Laterality: Left; Surgeon: New Mcclure MD; Location: [facility] OR EXCISION SKIN LESION 07/2016 ARTHROPLASTY KNEE TOTAL Left 2014 OTHER SURGICAL 2011 back fusion l2,3,4,5 KNEE ARTHROSCOPY Right 2007 HYSTERECTOMY 2006 [facility] DIAGNOSTIC/THERAPEUTIC NONOBSTETRICAL 2005 x2 OTHER SURGICAL 11/1998 eye lid celanzion EXCISION GANGLION CYST WRIST Right 1982 EXCISION GANGLION CYST Left EXCISION SKIN LESION sebaceous cyst off back HIP REPLACEMENT Right 2017 OTHER SURGICAL plantar wart removed OTHER SURGICAL cyst off top of head OTHER SURGICAL uterine ablation OTHER SURGICAL joint replacement TONSILLECTOMY Family History: Her family history includes Bleeding or Clotting Problems in her mother; Cancer in her father and sister; Diabetes in her sister; Heart Disease - Other in her mother; Hypertension in her mother. Social History: Her reports that she has never smoked. She has never used smokeless tobacco. She reports that she does not drink alcohol and does not use drugs. Outpatient Medications Prior to Visit Medication Sig Dispense Refill Acetaminophen 325 MG tablet Take 2 tablets by mouth every 4 hours as needed for Mild Pain. Do not exceed 4000mg of Tylenol in 24 hour period. 50 tablet 1 amoxicillin 250 MG capsule Take 2 capsules by mouth every 8 hours. 4 capsules 1 hour before procedure apixaban 2.5 MG tablet Take 1 tablet by mouth every 12 hours. This medication is for blood clot prevention 70 tablet 0 carveDILOL 12.5 MG tablet Take 1 tablet by mouth 2 times daily. Diclofenac Sodium 1 % Gel gel Diclofenac Diclofenac Sodium Active 4 GM Topical Four times daily October 01, 2020 10:38am 10-01-2020 [facility] ([id number]) Docusate 100 MG capsule Take 1 capsule by mouth 2 times daily. Hold for loose stools. 60 capsule 0 Doxazosin 4 MG tablet Take 1 tablet by mouth daily. Hydroxychloroquine 200 MG tablet Take 1 tablet by mouth 2 times daily. ibandronate 150 MG Tab Take 1 tablet by mouth every 30 days. lisinopril 40 MG tablet Take 1 tablet by mouth daily. Meloxicam 7.5 MG tablet Take 1 tablet by mouth daily. Take with food. 30 tablet 0 pantoprazole [address] Take 1 tablet by mouth every evening at 6 PM. predniSONE 5 MG tablet Take 1 tablet by mouth as needed (for flair up of whole body). pregabalin 25 MG capsule TAKE 1 CAPSULE BY MOUTH IN THE MORNING AND 1 CAPSULE IN THE AFTERNOON Sucralfate 1 g tablet Take 1 tablet by mouth 2 times daily. While on NSAID therapy 84 tablet 0 therapeutic multivitamin-minerals tablet Take 1 tablet by mouth at bedtime. 30 tablet 0 tiZANidine 4 MG tablet Take 1 tablet by mouth every 6 hours as needed for Muscle spasms. triamterene-hydrochlorothiazide 37.5-25 MG Cap Take 1 capsule by mouth as needed (edema). oxyCODONE 5 MG tablet Take one to two tabs every 4-6 hours as needed for severe pain. Wean as tolerated 30 tablet 0 No facility-administered medications prior to visit. Current Outpatient Medications: Acetaminophen 325 MG tablet, Take 2 tablets by mouth every 4 hours as needed for Mild Pain. Do not exceed 4000mg of Tylenol in 24 hour period., Disp: 50 tablet, Rfl: 1 amoxicillin 250 MG capsule, Take 2 capsules by mouth every 8 hours. 4 capsules 1 hour before procedure, Disp: , Rfl: apixaban 2.5 MG tablet, Take 1 tablet by mouth every 12 hours. This medication is for blood clot prevention, Disp: 70 tablet, Rfl: 0 carveDILOL 12.5 MG tablet, Take 1 tablet by mouth 2 times daily., Disp: , Rfl: Diclofenac Sodium 1 % Gel gel, Diclofenac Diclofenac Sodium Active 4 GM Topical Four times daily October 01, 2020 10:38am 10-01-2020 [facility] ([id number]), Disp: , Rfl: Docusate 100 MG capsule, Take 1 capsule by mouth 2 times daily. Hold for loose stools., Disp: 60 capsule, Rfl: 0 Doxazosin 4 MG tablet, Take 1 tablet by mouth daily., Disp: , Rfl: Hydroxychloroquine 200 MG tablet, Take 1 tablet by mouth 2 times daily., Disp: , Rfl: ibandronate 150 MG Tab, Take 1 tablet by mouth every 30 days., Disp: , Rfl: lisinopril 40 MG tablet, Take 1 tablet by mouth daily., Disp: , Rfl: Meloxicam 7.5 MG tablet, Take 1 tablet by mouth daily. Take with food., Disp: 30 tablet, Rfl: [address] pantopraz[address], Take 1 tablet by mouth every evening at 6 PM., Disp: , Rfl: predniSONE 5 MG tablet, Take 1 tablet by mouth as needed (for flair up of whole body)., Disp: , Rfl: pregabalin 25 MG capsule, TAKE 1 CAPSULE BY MOUTH IN THE MORNING AND 1 CAPSULE IN THE AFTERNOON, Disp: , Rfl: Sucralfate 1 g tablet, Take 1 tablet by mouth 2 times daily. While on NSAID therapy, Disp: 84 tablet, Rfl: 0 therapeutic multivitamin-minerals tablet, Take 1 tablet by mouth at bedtime., Disp: 30 tablet, Rfl: 0 tiZANidine 4 MG tablet, Take 1 tablet by mouth every 6 hours as needed for Muscle spasms., Disp: , Rfl: triamterene-hydrochlorothiazide 37.5-25 MG Cap, Take 1 capsule by mouth as needed (edema)., Disp: , Rfl: oxyCODONE 5 MG tablet, Take one to two tabs every 4-6 hours as needed for severe pain. Wean as tolerated, Disp: 30 tablet, Rfl: 0 Allergies: She is allergic to ciprofloxacin, gralise [gabapentin (once-daily)], alendronate, gabapentin, oxcarbazepine, bactrim [sulfamethoxazole-trimethoprim], and levofloxacin. HPI: Danyelle Haskins is 3 weeks s/p right TKA. She is happy with her recovery to date and could not be happier with the outcomes of the operation. She is participating in PT in the home setting, using apixaban for DVT prophylaxis along with compression stockings. She reports she doing well overall. PHYSICAL EXAM: Today on examination she is Temp 97.6 F (36.4 C) (Temporal) Ht 1.727 m (5' 8 ) Wt 102.5 kg (226 lb) BMI 34.36 kg/m Smoking Status Never Body mass index is 34.36 kg/m . Pain is reported as 1/10. Incision is healing well without erythema, drainage, induration or evidence of dehiscence. There is mild global knee swelling. Calves are soft and non tender bilaterally with negative Homans sign. Distal neurovascular exam is intact. ROM today is found to be 0-112. The examination is stable to varus and valgus stress. DIAGNOSTIC STUDIES/INTERPRETATION: X-rays were reviewed today and reveal a right cemented total knee arthroplasty in good position and alignment unchanged from the immediate postop films. Assessment/Plan: 3 weeks postop right TKA. Continue DVT prophylaxis as prescribed. Continue physical therapy- if ROM goals not obtained the patient is to call the office for a follow up appointment otherwise plan for: follow up in one year for a repeat clinical and radiological evaluation unless an earlier need should arise. Dental prophylaxis was prescribed and instructions given. All questions and concerns were addressed at this appointment and the patient expressed understanding. Followup with Dr. Mcclure in 4-5 months to further discuss treatment for the left prosthetic knee, history of left total knee arthroplasty with extensor mechanism reconstruction with mesh. All pertinent portions of the clinical integrated logistics support manager documentation was reviewed and agree. Rajinder Green APRN-GEAR CODING MACHINE OPERATOR Ortho Nurse - Established Patient Intake Room#: 5 Date: 05/19/2023 2:43 PM Patient: Danyelle Haskins MR#: [id number] : 1955 Age: 67 y.o. 3 wks s/p R TKA. She states she is doing well and has minimal pain at times. She is using a walker for assistive device. Referring Physician: Rajinder Green APRN-CNP Insurance: Payor: MEDICARE / Plan: MEDICARE A AND B / Product Type: *No Product type* / Chief Complaint Patient presents with Right Knee - Post Op Visit Visit Vitals Temp 97.6 F (36.4 C) (Temporal) Ht 1.727 m (5' 8 ) Wt 102.5 kg (226 lb) BMI 34.36 kg/m Pain Recent Labs No results found for: CRP No results found for: SEDRATE Lab Results Component Value Date WBC 5.6 04/27/2023 HGB 9.7 (L) 04/27/2023 HCT 28.8 (L) 04/27/2023 PLATELET 202 04/27/2023 MCV 101.4 (H) 04/27/2023 History Past Medical History: Diagnosis Date Pneumonia 2010 History of blood transfusion 2012 bleeding ulcer; pt states had a reaction but does not remember what occured Active advance directive Living Will and Health Care POA Anemia Fe deficiency 30 years ago Anesthesia complication prolonged sedation, freezing cold Ankle swelling bilateral Arthritis Back pain Blood transfusion reaction pt unsure of reaction type Connective tissue disease non-specific Depression Easy bruising Essential hypertension, benign History of recent steroid use back injections Insomnia Joint pain Leg pain sciatica radiating to right posterior leg to knee Muscle weakness arms and legs; uses cane or walker for ambulation 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 Numbness feet Osteoarthritis Poor tolerance for activity less than 4 mets due to neuropathy, arthritis, chronic back pain RSD (reflex sympathetic dystrophy) Swelling of multiple joints L knee and right hip Ulcer gastric Use of cane as ambulatory aid Wears glasses Past Surgical History: Procedure Laterality Date ARTHROPLASTY KNEE TOTAL Right 04/26/2023 Laterality: Right; Surgeon: New Mcclure MD; Location: [facility] REVISION ARTHROPLASTY KNEE Left 11/21/2018 Laterality: Left; Surgeon: New Mcclure MD; Location: [facility] EXTRACTION EXTRACAPSULAR CATARACT W/ IMPLANT (ECCE IOL) Bilateral 2017 [facility] TREATMENT OPEN PATELLAR FX W/ INTERNAL FIXATION OR PATELLECTOMY Left 07/18/2017 Laterality: Left; Surgeon: New Mcclure MD; Location: [facility] PATELLECTOMY/HEMIPATELLECTOMY Left 07/18/2017 Laterality: Left; Surgeon: New Mcclure MD; Location: [facility] EXCISION SKIN LESION 07/2016 ARTHROPLASTY KNEE TOTAL Left 2015 OTHER SURGICAL 2012 back fusion l2,3,4,5 KNEE ARTHROSCOPY Right 2007 HYSTERECTOMY 2006 [facility]&C DIAGNOSTIC/THERAPEUTIC NONOBSTETRICAL 2005 x2 OTHER SURGICAL 11/1998 eye lid celanzion EXCISION GANGLION CYST WRIST Right 1982 EXCISION GANGLION CYST Left EXCISION SKIN LESION sebaceous cyst off back HIP REPLACEMENT Right 2017 OTHER SURGICAL plantar wart removed OTHER SURGICAL cyst off top of head OTHER SURGICAL uterine ablation OTHER SURGICAL joint replacement TONSILLECTOMY Family History: Her family history includes Bleeding or Clotting Problems in her mother; Cancer in her father and sister; Diabetes in her sister; Heart Disease - Other in her mother; Hypertension in her mother. Social History: Her reports that she has never smoked. She has never used smokeless tobacco. She reports that she does not drink alcohol and does not use drugs. Outpatient Medications Prior to Visit Medication Sig Dispense Refill Acetaminophen 325 MG tablet Take 2 tablets by mouth every 4 hours as needed for Mild Pain. Do not exceed 4000mg of Tylenol in 24 hour period. 50 tablet 1 amoxicillin 250 MG capsule Take 2 capsules by mouth every 8 hours. 4 capsules 1 hour before procedure apixaban 2.5 MG tablet Take 1 tablet by mouth every 12 hours. This medication is for blood clot prevention 70 tablet 0 carveDILOL 12.5 MG tablet Take 1 tablet by mouth 2 times daily. Diclofenac Sodium 1 % Gel gel Diclofenac Diclofenac Sodium Active 4 GM Topical Four times daily October 01, 2020 10:38am 10-01-2020 [facility] ([id number]) Docusate 100 MG capsule Take 1 capsule by mouth 2 times daily. Hold for loose stools. 60 capsule 0 Doxazosin 4 MG tablet Take 1 tablet by mouth daily. Hydroxychloroquine 200 MG tablet Take 1 tablet by mouth 2 times daily. ibandronate 150 MG Tab Take 1 tablet by mouth every 30 days. lisinopril 40 MG tablet Take 1 tablet by mouth daily. Meloxicam 7.5 MG tablet Take 1 tablet by mouth daily. Take with food. 30 tablet 0 pantoprazole [address] Take 1 tablet by mouth every evening at 6 PM. predniSONE 5 MG tablet Take 1 tablet by mouth as needed (for flair up of whole body). pregabalin 25 MG capsule TAKE 1 CAPSULE BY MOUTH IN THE MORNING AND 1 CAPSULE IN THE AFTERNOON Sucralfate 1 g tablet Take 1 tablet by mouth 2 times daily. While on NSAID therapy 84 tablet 0 therapeutic multivitamin-minerals tablet Take 1 tablet by mouth at bedtime. 30 tablet 0 tiZANidine 4 MG tablet Take 1 tablet by mouth every 6 hours as needed for Muscle spasms. triamterene-hydrochlorothiazide 37.5-25 MG Cap Take 1 capsule by mouth as needed (edema). oxyCODONE 5 MG tablet Take one to two tabs every 4-6 hours as needed for severe pain. Wean as tolerated 30 tablet 0 No facility-administered medications prior to visit. Current Outpatient Medications: Acetaminophen 325 MG tablet, Take 2 tablets by mouth every 4 hours as needed for Mild Pain. Do not exceed 4000mg of Tylenol in 24 hour period., Disp: 50 tablet, Rfl: 1 amoxicillin 250 MG capsule, Take 2 capsules by mouth every 8 hours. 4 capsules 1 hour before procedure, Disp: , Rfl: apixaban 2.5 MG tablet, Take 1 tablet by mouth every 12 hours. This medication is for blood clot prevention, Disp: 70 tablet, Rfl: 0 carveDILOL 12.5 MG tablet, Take 1 tablet by mouth 2 times daily., Disp: , Rfl: Diclofenac Sodium 1 % Gel gel, Diclofenac Diclofenac Sodium Active 4 GM Topical Four times daily October 01, 2020 10:38am 10-01-2020 [facility] ([id number]), Disp: , Rfl: Docusate 100 MG capsule, Take 1 capsule by mouth 2 times daily. Hold for loose stools., Disp: 60 capsule, Rfl: 0 Doxazosin 4 MG tablet, Take 1 tablet by mouth daily., Disp: , Rfl: Hydroxychloroquine 200 MG tablet, Take 1 tablet by mouth 2 times daily., Disp: , Rfl: ibandronate 150 MG Tab, Take 1 tablet by mouth every 30 days., Disp: , Rfl: lisinopril 40 MG tablet, Take 1 tablet by mouth daily., Disp: , Rfl: Meloxicam 7.5 MG tablet, Take 1 tablet by mouth daily. Take with food., Disp: 30 tablet, Rfl: [address] pantopraz[address], Take 1 tablet by mouth every evening at 6 PM., Disp: , Rfl: predniSONE 5 MG tablet, Take 1 tablet by mouth as needed (for flair up of whole body)., Disp: , Rfl: pregabalin 25 MG capsule, TAKE 1 CAPSULE BY MOUTH IN THE MORNING AND 1 CAPSULE IN THE AFTERNOON, Disp: , Rfl: Sucralfate 1 g tablet, Take 1 tablet by mouth 2 times daily. While on NSAID therapy, Disp: 84 tablet, Rfl: 0 therapeutic multivitamin-minerals tablet, Take 1 tablet by mouth at bedtime., Disp: 30 tablet, Rfl: 0 tiZANidine 4 MG tablet, Take 1 tablet by mouth every 6 hours as needed for Muscle spasms., Disp: , Rfl: triamterene-hydrochlorothiazide 37.5-25 MG Cap, Take 1 capsule by mouth as needed (edema)., Disp: , Rfl: oxyCODONE 5 MG tablet, Take one to two tabs every 4-6 hours as needed for severe pain. Wean as tolerated, Disp: 30 tablet, Rfl: 0 Allergies: She is allergic to ciprofloxacin, gralise [gabapentin (once-daily)], alendronate, gabapentin, oxcarbazepine, bactrim [sulfamethoxazole-trimethoprim], and levofloxacin. documented in this encounter [facility] 08-31-2021 Evaluation note Encounter Date Diagnosis Assessment Notes Aug, Lumbar spondylosis (ICD-10 - M47.816) Aug, Spinal stenosis of lumbar region without neurogenic claudication (ICD-10 - M48.061) The patient does not have any symptoms consistent with neurogenic claudication. She has focal musculoskeletal pain on the right side. As such I would not treat her lumbar stenosis at this time. If she had increasing symptoms at some point I would be happy to reevaluate it. I think continued management with pain management and focal injections would be appropriate. [facility] Other 05-10-2021 Note [id number] 03-12-2021 NoteCystoscopy with Urethral Dilation ? Voiding after the procedure: there may be some pain, urethral bleeding, burning, urgency, frequency and blood tinged urine following the procedure. These symptoms usually resolve within 2-5 days. Drink the amount of fluid it takes to keep the urine pink to yellow or clear in color. Drinking enough water and fluids will help to ease any discomfort after your procedure. ? If you are having problems that seem out of the ordinary, please call. ? If unable to contact your physician and you feel it is an emergency, go to the nearest emergency room or call 911 ? Diet ? you may resume your normal diet. ? Activity ? you may resume your normal activities ? Call if you have a fever over 100 degreesFisher [facility] of Present illness Narrative* New Mcclure MD - 03/11/2021 1:30 PM EDT Associated Order(s): LARGE JOINT/BURSA INJECTION AND/OR ASPIRATION: R knee Post-Procedure Diagnose(s): Left knee pain, unspecified chronicity; Right knee pain, unspecified chronicity HPI: Danyelle is here today for evaluation of her operative knee. She is status post left total knee arthroplasty with extensor mechanism reconstruction with mesh approx two years ago. She was last seenby myself on 11/19/20 and was ordered a formal course of physical therapy. She is here today for a follow-up after surgery. She reports the PT was helpful and her symptoms have improved. She states she feels more confident with her knee prosthesis during ambulation and overall, is pleased with how she is progressing. Her pain is a 2/10 upon exam today. PHYSICAL EXAM: The operative lower extremity is soft, nontender, full and supple motion. No pain, no impingement. No instability. Her active extension is 10 with full passive extension. The contralateral extremity has full motion, normal stability, no tenderness. Both extremities have normal neurovascular status. DIAGNOSTIC STUDIES/INTERPRETATION: Plain film radiographs reviewed. She has a left total knee arthroplasty in good position and alignment with extensor mechanism reconstruction with some positional changes on lateral view. IMPRESSION: 1.) Status post total knee arthroplasty with extensor mechanism reconstruction with mesh. 2.) History of fall due to buckling. 3.) Symptomatic right knee OA. PLAN: I reviewed my findings with Danyelle. We discussed the current diagnosis and treatment options. We re-discussed a revision arthroplasty with a more constrained prosthesis and a repeat reconstruction of the extensor mechanism. At this time, given her improved active extension, a revision operation would not be recommended. She desires to continue with her PT sessions. If her therapy order expires and she would like another formal script, she will call my office and I'll be happy to provide her with script. If her symptoms change in the future or she desire to proceed with a revision operation, she will call my office. All questions were answered. She has no further questions. INJECTION: She desires arthritis management in the form of injections for her right knee. After explanations of the risks, benefits and alternatives and obtaining verbal consent, an injection in the right knee was administered. She tolerated the injection with no complaints. Aftercare instructions were provided with all questions being answered. She has no further questions at this time. LARGE JOINT/BURSA INJECTION AND/OR ASPIRATION: R knee Date/Time: 03/11/2021 1:30 PM Supporting Documentation Indications: pain Procedure Details: Location: knee - R knee Local Anesthetic: ethyl chloride (cold spray) Needle size: 22 G Medication Verification: I have personally verified and performed the final check of the medication(s) used in this procedure prior to administration. The following items were included during the verification process for medication(s) administered: drug name, strength, volume, expiration, physical integrity and appearance of the medication(s). Medications administered: 5 mL lidocaine 1% (PF) 1 %; 1 mL triamcinolone 40 MG/ML Patient tolerance: patient tolerated the procedure well with no immediate complications The patient was prepped with Betadine. MICHELLE ZEPEDA I have reviewed the findings of the clinical integrated logistics support manager and agree with their assessment. Ortho Nurse Established Patient Intake Room#: 3 F/U from , seen 11-19-20, left knee TKA 11-21-18 with extensor mechanism repair, states her pain is a 2 and she is doing much better Date: 03/11/2021 1:59 PM Patient: Danyelle Haskins MR#: [id number] : 1955 Age: 65 y.o. Referring Physician: Self, Self Insurance: Payor: MEDICARE / Plan: MEDICARE A AND B / Product Type: *No Product type* / Chief Complaint Patient presents with Left Knee - Follow-up Visit Vitals Temp 97 F (36.1 C) (Temporal) Ht 1.727 m (5' 8 ) Wt 99.8 kg (220 lb) BMI 33.45 kg/m Pain Presence of Pain: complains of pain/discomfort Pain Location: knee, left Select Pain Scale: DVPRS (Defense and Veterans Pain Rating Scale) (Adult- Cognitively Intact) Pain Location: knee, left Select Pain Scale: DVPRS (Defense and Veterans Pain Rating Scale) (Adult- Cognitively Intact) Recent Labs No results found for: CRP No results found for: SEDRATE Lab Results Component Value Date WBC 4.5 11/24/2018 HGB 11.5 (L) 11/24/2018 HCT 33.5 (L) 11/24/2018 PLATELET 191 11/24/2018 MCV 101.1 (H) 11/24/2018 History Past Medical History: Diagnosis Date Pneumonia 2010 History of blood transfusion 2012 bleeding ulcer; pt states had a reaction but does not remember what occured Active advance directive Living Will and Health Care POA Anemia Fe deficiency 30 years ago Anesthesia complication prolonged sedation, freezing cold Ankle swelling bilateral Arthritis Back pain Blood transfusion reaction pt unsure of reaction type Connective tissue disease non-specific Depression Easy bruising History of recent steroid use back injections Insomnia Joint pain Leg pain sciatica radiating to right posterior leg to knee Muscle weakness arms and legs; uses cane or walker for ambulation 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 No current use of beta heidi Numbness feet Osteoarthritis Poor tolerance for activity less than 4 mets due to neuropathy, arthritis, chronic back pain Preoperative clearance Dr Batres 11/15/18 RSD (reflex sympathetic dystrophy) Swelling of multiple joints L knee and right hip Ulcer gastric Use of cane as ambulatory aid Wears glasses Past Surgical History: Procedure Laterality Date REVISION ARTHROPLASTY KNEE Left 11/21/2018 Laterality: Left; Surgeon: New Mcclure MD; Location: [facility] EXTRACTION EXTRACAPSULAR CATARACT W/ IMPLANT (ECCE IOL) Bilateral 2017 [facility] TREATMENT OPEN PATELLAR FX W/ INTERNAL FIXATION OR PATELLECTOMY Left 07/18/2017 Laterality: Left; Surgeon: New Mcclure MD; Location: [facility] PATELLECTOMY/HEMIPATELLECTOMY Left 07/18/2017 Laterality: Left; Surgeon: New Mcclure MD; Location: [facility] EXCISION SKIN LESION 07/2016 ARTHROPLASTY KNEE TOTAL Left 2014 OTHER SURGICAL 2011 back fusion l2,3,4,5 KNEE ARTHROSCOPY Right 2006 HYSTERECTOMY 2006 [facility] DIAGNOSTIC/THERAPEUTIC NONOBSTETRICAL 2005 x2 OTHER SURGICAL 11/1998 eye lid celanzion EXCISION GANGLION CYST WRIST Right 1982 EXCISION GANGLION CYST Left EXCISION SKIN LESION sebaceous cyst off back HIP REPLACEMENT Right 2016 OTHER SURGICAL plantar wart removed OTHER SURGICAL cyst off top of head OTHER SURGICAL uterine ablation OTHER SURGICAL joint replacement TONSILLECTOMY Family History: Her family history includes Bleeding or Clotting Problems in her mother; Cancer in her father and sister; Diabetes in her sister; Heart Disease - Other in her mother; Hypertension in her mother. Social History: Her reports that she has never smoked. She has never used smokeless tobacco. She reports that she does not drink alcohol and does not use drugs. Outpatient Medications Prior to Visit Medication Sig Dispense Refill acetaminophen 325 MG tablet Take 2 tablets by mouth every 4 hours as needed for Mild Pain. (Patienttaking differently: Take 650 mg by mouth every 4 hours as needed for Mild Pain. 650mg, 2 once a day) 50 tablet 1 ALPHA LIPOIC ACID PO take 200 mg by mouth 3 times daily.. amoxicillin 250 MG capsule Take 500 mg by mouth every 8 hours. 4 capsules 1 hour before procedure ascorbic acid 500 MG Tab Take 500 mg by mouth daily. baclofen 10 MG Tab Take 20 mg by mouth 3 times daily as needed. Biotin 67360 MCG Tab take 2 tablets by mouth 2 times daily.. Calcium Carb-Cholecalciferol (CALCIUM 600 + D) 600-200 MG-UNIT Tab tablet Take 2.5 tablets by mouthDaily (with lunch). Diclofenac Sodium 1 % Gel gel Diclofenac Diclofenac Sodium Active 4 GM Topical Four times daily October 01, 2020 10:38am 10-01-2020 [facility] ([id number]) ferrous sulfate 325 (65 Fe) MG Tab DR tablet Take 325 mg by mouth 2 times daily as needed. folic acid 1 MG Tab tablet Take 1 mg by mouth daily. Glucosamine-Chondroitin (GLUCOSAMINE CHONDR COMPLEX PO) take 1 tablet by mouth daily.. hydroxychloroquine (PLAQUENIL) 200 MG Tab tablet Take 200 mg by mouth 2 times daily. ibandronate 150 MG Tab take 150 mg by mouth every 30 days.. leflunomide 20 MG Tab tablet Take 20 mg by mouth daily. lisinopril 10 MG Tab tablet Take 10 mg by mouth daily. methotrexate 2.5 MG tablet TAKE 5 TABLETS BY MOUTH ONCE EVERY WEEK Multiple Vitamins-Minerals (MULTIVITAMIN ADULT PO) take 1 tablet by mouth at bedtime.. pantoprazole [address] take 40 mg by mouth every evening at 6 PM.. Psyllium (METAMUCIL FIBER PO) take 1 Dose by mouth every evening.. traMADol 50 MG Tab tablet Take 50 mg by mouth 2 times daily as needed. triamterene-hydrochlorothiazide 37.5-25 MG Cap take 1 capsule by mouth as needed (edema).. TURMERIC CURCUMIN PO Take by mouth. zonisamide 100 MG Cap take 100 mg by mouth at bedtime.. amoxicillin 500 MG capsule Take 4 capsules 1 hour before procedure (Patient not taking: Reported on03/11/2021) 8 capsule 1 apixaban 2.5 MG Tab tablet Take 1 tablet by mouth every 12 hours. This medication is for blood clotprevention 70 tablet 0 clonazePAM 0.5 MG Tab tablet TAKE 1/2 TO 1 TABLET BY MOUTH AT BEDTIME NEEDED 1 dexamethasone 4 MG/ML Solution injection 1 mL by Other route As directed for 18 doses. (1 cc 3 x a week at physical therapy via iontophoresis) for up to 18 doses. (Patient not taking: Reported on 04/18/2019) 30 mL 0 docusate 100 MG Cap capsule Take 1 capsule by mouth 2 times daily. (Patient not taking: Reported on03/01/2019) 60 capsule 0 oxyCODONE 5 MG Tab tablet Take 1-2 tabs po q 4-6 hours PRN pain. 60 tablet 0 No facility-administered medications prior to visit. Current Outpatient Medications: acetaminophen 325 MG tablet, Take 2 tablets by mouth every 4 hours as needed for Mild Pain. (Patient taking differently: Take 650 mg by mouth every 4 hours as needed for Mild Pain. 650mg, 2 once a day), Disp: 50 tablet, Rfl: 1 ALPHA LIPOIC ACID PO, take 200 mg by mouth 3 times daily.., Disp: , Rfl: amoxicillin 250 MG capsule, Take 500 mg by mouth every 8 hours. 4 capsules 1 hour before procedure,Disp: , Rfl: ascorbic acid 500 MG Tab, Take 500 mg by mouth daily., Disp: , Rfl: baclofen 10 MG Tab, Take 20 mg by mouth 3 times daily as needed. , Disp: , Rfl: Biotin 93955 MCG Tab, take 2 tablets by mouth 2 times daily.. , Disp: , Rfl: Calcium Carb-Cholecalciferol (CALCIUM 600 + D) 600-200 MG-UNIT Tab tablet, Take 2.5 tablets by mouth Daily (with lunch). , Disp: , Rfl: Diclofenac Sodium 1 % Gel gel, Diclofenac Diclofenac Sodium Active 4 GM Topical Four times daily October 01, 2020 10:38am 10-01-[address] [facility] ([id number]), Disp: , Rfl: ferrous sulfate 325 (65 Fe) MG Tab DR tablet, Take 325 mg by mouth 2 times daily as needed., Disp: , Rfl: folic acid 1 MG Tab tablet, Take 1 mg by mouth daily., Disp: , Rfl: Glucosamine-Chondroitin (GLUCOSAMINE CHONDR COMPLEX PO), take 1 tablet by mouth daily.., Disp: , Rfl: hydroxychloroquine (PLAQUENIL) 200 MG Tab tablet, Take 200 mg by mouth 2 times daily., Disp: , Rfl: ibandronate 150 MG Tab, take 150 mg by mouth every 30 days.., Disp: , Rfl: leflunomide 20 MG Tab tablet, Take 20 mg by mouth daily., Disp: , Rfl: lisinopril 10 MG Tab tablet, Take 10 mg by mouth daily., Disp: , Rfl: methotrexate 2.5 MG tablet, TAKE 5 TABLETS BY MOUTH ONCE EVERY WEEK, Disp: , Rfl: Multiple Vitamins-Minerals (MULTIVITAMIN ADULT PO), take 1 tablet by mouth at bedtime.., Disp: , Rfl: pantoprazole [address], take 40 mg by mouth every evening at 6 PM.., Disp: , Rfl: Psyllium (METAMUCIL FIBER PO), take 1 Dose by mouth every evening.. , Disp: , Rfl: traMADol 50 MG Tab tablet, Take 50 mg by mouth 2 times daily as needed., Disp: , Rfl: triamterene-hydrochlorothiazide 37.5-25 MG Cap, take 1 capsule by mouth as needed (edema).., Disp: , Rfl: TURMERIC CURCUMIN PO, Take by mouth., Disp: , Rfl: zonisamide 100 MG Cap, take 100 mg by mouth at bedtime.., Disp: , Rfl: amoxicillin 500 MG capsule, Take 4 capsules 1 hour before procedure (Patient not taking: Reported on 03/11/2021), Disp: 8 capsule, Rfl: 1 apixaban 2.5 MG Tab tablet, Take 1 tablet by mouth every 12 hours. This medication is for blood clot prevention, Disp: 70 tablet, Rfl: 0 clonazePAM 0.5 MG Tab tablet, TAKE 1/2 TO 1 TABLET BY MOUTH AT BEDTIME NEEDED, Disp: , Rfl: 1 dexamethasone 4 MG/ML Solution injection, 1 mL by Other route As directed for 18 doses. (1 cc 3 x aweek at physical therapy via iontophoresis) for up to 18 doses. (Patient not taking: Reported on 04/18/2019), Disp: 30 mL, Rfl: 0 docusate 100 MG Cap capsule, Take 1 capsule by mouth 2 times daily. (Patient not taking: Reported on 03/01/2019), Disp: 60 capsule, Rfl: 0 oxyCODONE 5 MG Tab tablet, Take 1-2 tabs po q 4-6 hours PRN pain., Disp: 60 tablet, Rfl: 0 Allergies: She is allergic to gralise [gabapentin (once-daily)]; alendronate; gabapentin; oxcarbazepine; and bactrim [sulfamethoxazole-trimethoprim]. * Noel Kumar LPN - 03/11/2021 1:30 PM EDT Ortho Nurse Established Patient Intake Room#: 3 F/U from PT, seen 11-19-20, left knee TKA 11-21-18 with extensor mechanism repair, states her pain is a 2 and she is doing much better Date: 03/11/2021 1:59 PM Patient: Danyelle Haskins MR#: [id number] : 1955 Age: 65 y.o. Referring Physician: Self, Self Insurance: Payor: MEDICARE / Plan: MEDICARE A AND B / Product Type: *No Product type* / Chief Complaint Patient presents with Left Knee - Follow-up Visit Vitals Temp 97 F (36.1 C) (Temporal) Ht 1.727 m (5' 8 ) Wt 99.8 kg (220 lb) BMI 33.45 kg/m Pain Presence of Pain: complains of pain/discomfort Pain Location: knee, left Select Pain Scale: DVPRS (Defense and Veterans Pain Rating Scale) (Adult- Cognitively Intact) Pain Location: knee, left Select Pain Scale: DVPRS (Defense and Veterans Pain Rating Scale) (Adult- Cognitively Intact) Recent Labs No results found for: CRP No results found for: SEDRATE Lab Results Component Value Date WBC 4.5 11/24/2018 HGB 11.5 (L) 11/24/2018 HCT 33.5 (L) 11/24/2018 PLATELET 191 11/24/2018 MCV 101.1 (H) 11/24/2018 History Past Medical History: Diagnosis Date Pneumonia 2010 History of blood transfusion 2012 bleeding ulcer; pt states had a reaction but does not remember what occured Active advance directive Living Will and Health Care POA Anemia Fe deficiency 30 years ago Anesthesia complication prolonged sedation, freezing cold Ankle swelling bilateral Arthritis Back pain Blood transfusion reaction pt unsure of reaction type Connective tissue disease non-specific Depression Easy bruising History of recent steroid use back injections Insomnia Joint pain Leg pain sciatica radiating to right posterior leg to knee Muscle weakness arms and legs; uses cane or walker for ambulation 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 No current use of beta heidi Numbness feet Osteoarthritis Poor tolerance for activity less than 4 mets due to neuropathy, arthritis, chronic back pain Preoperative clearance Dr Batres 11/15/18 RSD (reflex sympathetic dystrophy) Swelling of multiple joints L knee and right hip Ulcer gastric Use of cane as ambulatory aid Wears glasses Past Surgical History: Procedure Laterality Date REVISION ARTHROPLASTY KNEE Left 11/21/2018 Laterality: Left; Surgeon: New Mcclure MD; Location: [facility] EXTRACTION EXTRACAPSULAR CATARACT W/ IMPLANT (ECCE IOL) Bilateral 2018 [facility] TREATMENT OPEN PATELLAR FX W/ INTERNAL FIXATION OR PATELLECTOMY Left 07/18/2017 Laterality: Left; Surgeon: New Mcclure MD; Location: [facility] PATELLECTOMY/HEMIPATELLECTOMY Left 07/18/2017 Laterality: Left; Surgeon: New Mcclure MD; Location: [facility] EXCISION SKIN LESION 07/2016 ARTHROPLASTY KNEE TOTAL Left 2014 OTHER SURGICAL 2011 back fusion l2,3,4,5 KNEE ARTHROSCOPY Right 2007 HYSTERECTOMY 2006 [facility] DIAGNOSTIC/THERAPEUTIC NONOBSTETRICAL 2005 x2 OTHER SURGICAL 11/1998 eye lid celanzion EXCISION GANGLION CYST WRIST Right 1982 EXCISION GANGLION CYST Left EXCISION SKIN LESION sebaceous cyst off back HIP REPLACEMENT Right 2016 OTHER SURGICAL plantar wart removed OTHER SURGICAL cyst off top of head OTHER SURGICAL uterine ablation OTHER SURGICAL joint replacement TONSILLECTOMY Family History: Her family history includes Bleeding or Clotting Problems in her mother; Cancer in her father and sister; Diabetes in her sister; Heart Disease - Other in her mother; Hypertension in her mother. Social History: Her reports that she has never smoked. She has never used smokeless tobacco. She reports that she does not drink alcohol and does not use drugs. Outpatient Medications Prior to Visit Medication Sig Dispense Refill acetaminophen 325 MG tablet Take 2 tablets by mouth every 4 hours as needed for Mild Pain. (Patienttaking differently: Take 650 mg by mouth every 4 hours as needed for Mild Pain. 650mg, 2 once a day) 50 tablet 1 ALPHA LIPOIC ACID PO take 200 mg by mouth 3 times daily.. amoxicillin 250 MG capsule Take 500 mg by mouth every 8 hours. 4 capsules 1 hour before procedure ascorbic acid 500 MG Tab Take 500 mg by mouth daily. baclofen 10 MG Tab Take 20 mg by mouth 3 times daily as needed. Biotin 31498 MCG Tab take 2 tablets by mouth 2 times daily.. Calcium Carb-Cholecalciferol (CALCIUM 600 + D) 600-200 MG-UNIT Tab tablet Take 2.5 tablets by mouthDaily (with lunch). Diclofenac Sodium 1 % Gel gel Diclofenac Diclofenac Sodium Active 4 GM Topical Four times daily October 01, 2020 10:38am 10-01-[address] [facility] ([id number]) ferrous sulfate 325 (65 Fe) MG Tab DR tablet Take 325 mg by mouth 2 times daily as needed. folic acid 1 MG Tab tablet Take 1 mg by mouth daily. Glucosamine-Chondroitin (GLUCOSAMINE CHONDR COMPLEX PO) take 1 tablet by mouth daily.. hydroxychloroquine (PLAQUENIL) 200 MG Tab tablet Take 200 mg by mouth 2 times daily. ibandronate 150 MG Tab take 150 mg by mouth every 30 days.. leflunomide 20 MG Tab tablet Take 20 mg by mouth daily. lisinopril 10 MG Tab tablet Take 10 mg by mouth daily. methotrexate 2.5 MG tablet TAKE 5 TABLETS BY MOUTH ONCE EVERY WEEK Multiple Vitamins-Minerals (MULTIVITAMIN ADULT PO) take 1 tablet by mouth at bedtime.. pantoprazole [address] take 40 mg by mouth every evening at 6 PM.. Psyllium (METAMUCIL FIBER PO) take 1 Dose by mouth every evening.. traMADol 50 MG Tab tablet Take 50 mg by mouth 2 times daily as needed. triamterene-hydrochlorothiazide 37.5-25 MG Cap take 1 capsule by mouth as needed (edema).. TURMERIC CURCUMIN PO Take by mouth. zonisamide 100 MG Cap take 100 mg by mouth at bedtime.. amoxicillin 500 MG capsule Take 4 capsules 1 hour before procedure (Patient not taking: Reported on5/03/2021) 8 capsule 1 apixaban 2.5 MG Tab tablet Take 1 tablet by mouth every 12 hours. This medication is for blood clotprevention 70 tablet 0 clonazePAM 0.5 MG Tab tablet TAKE 1/2 TO 1 TABLET BY MOUTH AT BEDTIME NEEDED 1 dexamethasone 4 MG/ML Solution injection 1 mL by Other route As directed for 18 doses. (1 cc 3 x a week at physical therapy via iontophoresis) for up to 18 doses. (Patient not taking: Reported on 04/18/2019) 30 mL 0 docusate 100 MG Cap capsule Take 1 capsule by mouth 2 times daily. (Patient not taking: Reported on03/01/2019) 60 capsule 0 oxyCODONE 5 MG Tab tablet Take 1-2 tabs po q 4-6 hours PRN pain. 60 tablet 0 No facility-administered medications prior to visit. Current Outpatient Medications: acetaminophen 325 MG tablet, Take 2 tablets by mouth every 4 hours as needed for Mild Pain. (Patient taking differently: Take 650 mg by mouth every 4 hours as needed for Mild Pain. 650mg, 2 once a day), Disp: 50 tablet, Rfl: 1 ALPHA LIPOIC ACID PO, take 200 mg by mouth 3 times daily.., Disp: , Rfl: amoxicillin 250 MG capsule, Take 500 mg by mouth every 8 hours. 4 capsules 1 hour before procedure,Disp: , Rfl: ascorbic acid 500 MG Tab, Take 500 mg by mouth daily., Disp: , Rfl: baclofen 10 MG Tab, Take 20 mg by mouth 3 times daily as needed. , Disp: , Rfl: Biotin 00690 MCG Tab, take 2 tablets by mouth 2 times daily.. , Disp: , Rfl: Calcium Carb-Cholecalciferol (CALCIUM 600 + D) 600-200 MG-UNIT Tab tablet, Take 2.5 tablets by mouth Daily (with lunch). , Disp: , Rfl: Diclofenac Sodium 1 % Gel gel, Diclofenac Diclofenac Sodium Active 4 GM Topical Four times daily October 01, 2020 10:38am 10-01-2020 [facility] ([id number]), Disp: , Rfl: ferrous sulfate 325 (65 Fe) MG Tab DR tablet, Take 325 mg by mouth 2 times daily as needed., Disp: , Rfl: folic acid 1 MG Tab tablet, Take 1 mg by mouth daily., Disp: , Rfl: Glucosamine-Chondroitin (GLUCOSAMINE CHONDR COMPLEX PO), take 1 tablet by mouth daily.., Disp: , Rfl: hydroxychloroquine (PLAQUENIL) 200 MG Tab tablet, Take 200 mg by mouth 2 times daily., Disp: , Rfl: ibandronate 150 MG Tab, take 150 mg by mouth every 30 days.., Disp: , Rfl: leflunomide 20 MG Tab tablet, Take 20 mg by mouth daily., Disp: , Rfl: lisinopril 10 MG Tab tablet, Take 10 mg by mouth daily., Disp: , Rfl: methotrexate 2.5 MG tablet, TAKE 5 TABLETS BY MOUTH ONCE EVERY WEEK, Disp: , Rfl: Multiple Vitamins-Minerals (MULTIVITAMIN ADULT PO), take 1 tablet by mouth at bedtime.., Disp: , Rfl: pantoprazole [address], take 40 mg by mouth every evening at 6 PM.., Disp: , Rfl: Psyllium (METAMUCIL FIBER PO), take 1 Dose by mouth every evening.. , Disp: , Rfl: traMADol 50 MG Tab tablet, Take 50 mg by mouth 2 times daily as needed., Disp: , Rfl: triamterene-hydrochlorothiazide 37.5-25 MG Cap, take 1 capsule by mouth as needed (edema).., Disp: , Rfl: TURMERIC CURCUMIN PO, Take by mouth., Disp: , Rfl: zonisamide 100 MG Cap, take 100 mg by mouth at bedtime.., Disp: , Rfl: amoxicillin 500 MG capsule, Take 4 capsules 1 hour before procedure (Patient not taking: Reported on 03/11/2021), Disp: 8 capsule, Rfl: 1 apixaban 2.5 MG Tab tablet, Take 1 tablet by mouth every 12 hours. This medication is for blood clot prevention, Disp: 70 tablet, Rfl: 0 clonazePAM 0.5 MG Tab tablet, TAKE 1/2 TO 1 TABLET BY MOUTH AT BEDTIME NEEDED, Disp: , Rfl: 1 dexamethasone 4 MG/ML Solution injection, 1 mL by Other route As directed for 18 doses. (1 cc 3 x aweek at physical therapy via iontophoresis) for up to 18 doses. (Patient not taking: Reported on 04/18/2019), Disp: 30 mL, Rfl: 0 docusate 100 MG Cap capsule, Take 1 capsule by mouth 2 times daily. (Patient not taking: Reported on 03/01/2019), Disp: 60 capsule, Rfl: 0 oxyCODONE 5 MG Tab tablet, Take 1-2 tabs po q 4-6 hours PRN pain., Disp: 60 tablet, Rfl: 0 Allergies: She is allergic to gralise [gabapentin (once-daily)]; alendronate; gabapentin; oxcarbazepine; and bactrim [sulfamethoxazole-trimethoprim]. [facility] Diagnosis Left knee pain, unspecified chronicity- Primary Right knee pain, unspecified chronicity [facility] Diagnosis Hx of total knee arthroplasty, right- Primary [facility] noteNo assessment information availableMer[facility] Work Phone: Evaluation note* Diagnosis Hx of total knee arthroplasty, right- Primary Hx of total knee arthroplasty, left [facility]* Diagnosis Preop testing- Primary Preoperative examination, unspecified Abnormal finding of blood chemistry, unspecified Abnormal coagulation profile Failed total left knee replacement, initial encounter [facility] - Reported* Type Description Date Medical History connective tissue disease Medical History Arthritis Medical History spinal compression Surgical History back surgery Surgical History ganglion cyst Surgical History tonsillectomy Surgical History hysterectomy Surgical History tendon repair Surgical History wrist surgery Surgical History cataracts, bilaterally Surgical History Abdominal Ablation Hospitalization History see surgical hx [employer] Other Summary Purpose Family History No Family History Records Found Relationship Condition Age at Onset Recorded Date/T kayode Not Specified Diabetes mellitus Unknown Arthritis Unknown Family history of cataracts Unknown Hypertension Unknown father Liposarcoma Unknown sister Malignant neoplasm of thyroid gland Unkno wn family member Pituitary neoplasm Unknown Advance Directives No Advanced Directives Records FoundDocuments on File Type Date Recorded Patient [employer] Expl anation Advance Directives/Living Will 11/21/2018 8:22 AM Advance Directives/Living Will 11/21/2018 8:26 AM Latest Code Status on File Code Status Date Activated Date Inactivated Comments Full Code 11/21/2018 2:46 PM Full Code 07/18/2017 4:04 PM 07/21/2017 7:25 PM Documents on File Type Date Recorded Patient [employer] Expl anation Advance Directives/Living Will 11/21/2018 8:22 AM Advance Directives/Living Will 11/21/2018 8:26 AM Latest Code Status on File Code Status Date Activated Date Inactivated Comments Full Code 11/21/2018 2:46 PM Full Code 07/18/2017 4:04 PM 07/21/2017 7:25 PM Latest Code Status on File Code Status Date Activated Date Inactivated Comments Full Code 11/21/2018 2:46 PM Code Status History Code Status Date Activated Date Inactivated Comments Full Code 07/18/2017 4:04 PM 07/21/2017 7:25 PM Latest Code Status on File Code Status Date Activated Date Inactivated Comments Full Code 04/26/2023 2:32 PM Code Status History Code Status Date Activated Date Inactivated Comments Full Code 11/21/2018 2:46 PM 04/26/2023 2:32 PM Full Code 07/18/2017 4:04 PM 07/21/2017 7:25 PM Reason for Referral Status Reason Specialty Diagnoses / Procedures Referred By Contact Referred To Contact New Request Diagnoses Pre-op exam Procedures ECG New Mcclure MD [address] [place] [address] Status Reason Specialty Diagnoses / Procedures Referred By Contact Referred To Contact New Request Procedures ACTIVITY TOLERATED Rajinder Green APRN-CNP [address] [place], [place] [phone] Status Reason Specialty Diagnoses / Procedures Referre d By Contact Referred To Contact Rajinder Green APRN-CNP [address] [place], [place] [phone] Status Reason Specialty Diagnoses / Procedures Referred By Contact Referred To Contact New Request Diagnoses Hx of total knee arthroplasty, left Procedures XR KNEE LEFT 2 VIEWS XR KNEE LEFT 3 VIEWS Rajinder Green APRN-CNP [address] [place], [place] [phone] Status Reason Specialty Diagnoses / Procedures Referred By Contact Referred To Contact New Request Physical Therapy Diagnoses History of total knee arthroplasty, left Right hip pain New Mcclure MD [address] [place], [place] [phone] Scheduling Instructions . Status Reason Specialty Diagnoses / Procedures Referred By Contact Referred To Contact Schedule Outgoing - Transfer of Care Physical Therapy Diagnoses History of total knee arthroplasty, left New Mcclure MD [address] [place], [place] [phone] Status Reason Specialty Diagnoses / Procedures Referred By Contact Referred To Contact New Request Diagnoses Right hip pain Procedures XR HIP WITH PELVIS RIGHT New Mcclure MD [address] [place], [place] [phone] Status Reason Specialty Diagnoses / Procedures Referred By Contact Referred To Contact New Request Sports Ortho and Primary Care Sports Diagnoses Right hip pain New Mcclure MD [address] [place], [place] [phone] Status Reason Specialty Diagnoses / Procedures Referred By Contact Referred To Contact New Request Diagnoses Right knee pain, unspecified chronicity Procedures LARGE JOINT INJECTION: R knee New Mcclure MD [address] [place], [place] [phone] Status Reason Specialty Diagnoses / Procedures Referred By Contact Referred To Contact New Request Diagnoses Left knee pain, unspecified chronicity Procedures XR KNEE LEFT 2 VIEWS XR KNEE LEFT 3 VIEWS New Mcclure MD [address] [place], [place] [phone] Status Reason Specialty Diagnoses / Procedures Referred By Contact Referred To Contact Pending Review Diagnoses History of total knee arthroplasty, left Procedures XR KNEE LEFT 3 VIEWS New Mcclure MD [address] [place], [place] [phone] Status Reason Specialty Diagnoses / Procedures Referred By Contact Referred To Contact Patient to Arrange Physical Therapy Diagnoses Pain in prosthetic joint, initial encounter New Mcclure MD [address] [place], [place] [phone] Status Reason Specialty Diagnoses / Procedures Referred By Contact Referred To Contact New Request Diagnoses Hx of total knee arthroplasty, left Procedures XR KNEE LEFT 3 VIEWS New Mcclure MD [address] [place], [place] [phone] Status Reason Specialty Diagnoses / Procedures Referred By Contact Referred To Contact Patient to Arrange Physical Therapy Diagnoses History of total knee arthroplasty, left New Mcclure MD [address] [place] [phone] Specialty Diagnoses / Procedures Referred By Contac t Referred To Contact Diagnoses Hx of total knee arthroplasty, right Procedures XR KNEE RIGHT 3 VIEWS Rajinder Green, GULLET SLITTER-GEAR CODING MACHINE OPERATOR [address] [place], [place] [phone] Referral ID Status Reason Start Date Expiration Date V isits Requested Visits Authorized [id number] New Request 05/11/2023 06/04/2024 1 1 Specialty Diagnoses / Procedures Referred By Contac t Referred To Contact Diagnoses Hx of total knee arthroplasty, right Procedures XR BONE LENGTH STUDY New Mcclure MD [address] [place], [place] [phone] Referral ID Status Reason Start Date Expiration Date V isits Requested Visits Authorized [id number] New Request 08/30/2023 09/23/2024 1 1 Specialty Diagnoses / Procedures Referred By Contac t Referred To Contact Diagnoses Hx of total knee arthroplasty, right Procedures XR KNEE RIGHT 3 VIEWS New Mcclure MD [address] [place] [id number] Referral ID Status Reason Start Date Expiration Date V isits Requested Visits Authorized [id number] New Request 08/30/2023 09/23/2024 1 1 Specialty Diagnoses / Procedures Referred By Contac t Referred To Contact Diagnoses Hx of total knee arthroplasty, left Procedures XR KNEE LEFT 3 VIEWS New Mcclure MD [address] [place] [id number] Referral ID Status Reason Start Date Expiration Date V isits Requested Visits Authorized [id number] New Request 08/30/2023 09/23/2024 1 1 Specialty Diagnoses / Procedures Referred By Contac t Referred To Contact Diagnoses Preop testing Procedures PREPARE TO TRANSFUSE RED BLOOD CELLS New Mcclure MD [address] [place] [phone] Referral ID Status Reason Start Date Expiration Date V isits Requested Visits Authorized [id number] New Request 11/01/2023 11/25/2024 1 1 Specialty Diagnoses / Procedures Referred By Contac t Referred To Contact Diagnoses Preop testing Procedures ECG New Mcclure MD [address] [place] [address] Referral ID Status Reason Start Date Expiration Date V isits Requested Visits Authorized [id number] New Request 10/27/2023 11/20/2024 1 1 Instructions * Patient Instructions - Everton [place] RN - 10/13/2018 12:21 PM EST Formatting of this note may be different from the original. Genoveva from Dr Mcclure's office will call you for your arrival time, 1-2 business days before your scheduled surgery. Please review your surgery checklist and bring your Guide or binder the day of surgery. Pre-Admission Testing Dept. [phone] Call if you have any changes in your medications, questions about your medication instructions or have additional health information you want added to your chart. Refer to the Pre-Op Bathing Instructions and use the wipes the night before surgery. Nothing by mouth after midnight except for water and Gatorade/powerade which can be consumed up until you leave for the hospital. Current Outpatient Prescriptions Medication Instructions Acetaminophen (TYLENOL ARTHRITIS PAIN PO) Take 2 tablets by mouth as needed. CONTINUE AND MAY TAKE THE MORNING OF SURGERY WITH SIP OF WATER LAST DOSE: DATE TIME ALPHA LIPOIC ACID PO take 200 mg by mouth 3 times daily.. CONTINUE but DO NOT take the morning of surgery LAST DOSE: DATE TIME ascorbic acid 500 MG Tab Take 500 mg by mouth daily. STOP 7 DAYS BEFORE YOUR SURGERY LAST DOSE: DATE TIME baclofen 10 MG Tab Take 20 mg by mouth 3 times daily as needed. CONTINUE but DO NOT take the morning of surgery LAST DOSE: DATE TIME Biotin 98434 MCG Tab take 2 tablets by mouth 2 times daily.. STOP 7 DAYS BEFORE YOUR SURGERY LAST DOSE: DATE TIME Calcium Carb-Cholecalciferol (CALCIUM 600 + D) 600-200 MG-UNIT Tab Take 2.5 tablets by mouth Daily (with lunch). STOP 7 DAYS BEFORE YOUR SURGERY LAST DOSE: DATE TIME folic acid 1 MG Tab tablet Take 1 mg by mouth daily. CONTINUE but DO NOT take the morning of surgery LAST DOSE: DATE TIME Glucosamine-Chondroitin (GLUCOSAMINE CHONDR COMPLEX PO) take 1 tablet by mouth daily.. STOP 7 DAYS BEFORE YOUR SURGERY LAST DOSE: DATE TIME Hydroxychloroquine Sulfate (HYDROXYCHLOROQUINE, [id number],) 200 MG Tab Take 200 mg by mouth 2 timesdaily. ASK YOUR SURGEON, or PRIMARY CARE DOCTOR IF YOU SHOULD HOLD THIS MEDICATION PRIOR TO SURGERY LAST DOSE: DATE TIME LAST DOSE: DATE TIME ibandronate 150 MG Tab take 150 mg by mouth every 30 days.. CONTINUE but DO NOT take the morning of surgery LAST DOSE: DATE TIME leflunomide 20 MG Tab take 20 mg by mouth at bedtime.. ASK YOUR SURGEON, or PRIMARY CARE DOCTOR IF YOU SHOULD HOLD THIS MEDICATION PRIOR TO SURGERY LAST DOSE: DATE TIME methotrexate 2.5 MG tablet Take 2.5 mg by mouth every 7 days. 7 tablets ASK YOUR SURGEON, or PRIMARY CARE DOCTOR IF YOU SHOULD HOLD THIS MEDICATION PRIOR TO SURGERY LAST DOSE: DATE TIME Multiple Vitamins-Minerals (MULTIVITAMIN ADULT PO) take 1 tablet by mouth at bedtime.. STOP 7 DAYS BEFORE YOUR SURGERY LAST DOSE: DATE TIME pantoprazole [address] take 40 mg by mouth every evening at 6 PM.. CONTINUE LAST DOSE: DATE TIME Psyllium (METAMUCIL FIBER PO) take 1 Dose by mouth every evening.. CONTINUE but DO NOT take the morning of surgery LAST DOSE: DATE TIME traMADol 50 MG Tab tablet TAKE 1 TABLET TWICE A DAY NEEDED CONTINUE AND MAY TAKE THE MORNING OF SURGERY WITH SIP OF WATER IF NEEDED LAST DOSE: DATE TIME triamterene-hydrochlorothiazide 37.5-25 MG Cap take 1 capsule by mouth as needed (edema).. CONTINUE but DO NOT take the morning of surgery LAST DOSE: DATE TIME VOLTAREN 1 % Gel gel 1 Application as needed. STOP 7 DAYS BEFORE YOUR SURGERY LAST DOSE: DATE TIME zonisamide 100 MG Cap take 100 mg by mouth at bedtime.. CONTINUE LAST DOSE: DATE TIME clonazePAM 0.5 MG Tab tablet TAKE 1/2 TO 1 TABLET BY MOUTH AT BEDTIME NEEDED CONTINUE LAST DOSE: DATE TIME in this encounter History of Present Illness * Everton [place] RN - 10/23/2018 9:00 AM EST Formatting of this note may be different from the original. Confirmed procedure and surgery date with patient.Discussed post op pain scale with patient.Reviewed pre-op instructions and gave written instructions of the same.Patient verbalized understanding. IF PATIENT HAS NOT BEEN DIAGNOSED WITH SLEEP APNEA PLEASE COMPLETE STOP-BANG STOP Do you SNORE loudly (louder than talking or loud enough to be heard through closed doors)? no Do you often feel TIRED, fatigued, or sleepy during daytime? no Has anyone OBSERVED you stop breathing during your sleep? no Do you have or are you being treated for high blood PRESSURE? no BANG BMI more than 35kg/m2? no AGE over 50 years old? yes NECK circumference > 16 inches (40 cm)? GENDER: Male? no TOTAL SCORE PT ACCEPTED REFERRAL High risk of DUTCH: Yes 5-8 Intermediate risk of DUTCH: Yes 3-4 Low risk of DUTCH: Yes 0-2 * See DEPARTMENT OF SURGERY AND ANESTHESIA REFERRAL FOR SLEEP STUDY AND/OR PULMONARY CONSULT paper form signed by patient in chart. in this encounter* Darren Garcia, PT - 11/24/2018 1:41 PM EST Formatting of this note may be different from the original. 11/24/18 1100 Subjective RN Approved Intervention as tolerated Existing Precautions/Restrictions fall;weight bearing;other (see comments) (TTWB left LE, knee immobilizer to be worn at all times) Subjective Reports Patient reports feeling ready to go to [facility] later today Cognitive Status Examination Orientation Status (Cognition) oriented x 4 Level of Consciousness alert;cooperative Able to Follow Commands (Communication) WNL Personal Safety and Judgment intact General Pain Documentation (Adult, OB, Peds) Presence of Pain complains of pain/discomfort Pain Location knee, left Pain Management Interventions cold application;positioning Select Pain Scale (NPRS: 1/10 rest and activity) Objective Therapeutic Interventions Patient observed reclining in recliner upon entering room, agreeable and pleasant for therapy intervention this a.m. Patient stood to FWW SBA and ambulated in hallway x 60 ft maintaining NWB on left LE throughout, demo's good ability to bear weight thru UEs on FWW. Patientrequired short standing rest break toward end of distance due to fatigue, returned to chair SBA. Patient then completed seated exercises for LE strengthening: right SLR, heel slides AROM, quad sets, glute sets, LAQ, SAQ x 10-20 each. Patient completed hip abduction/adduction in gravity eliminated position on left, ankle pumps, glute sets x 10-20 reps each. Patient returned to reclining position, c all light within reach Communication Patient to discharge to [facility] later today Transfer Skill: Sit To Stand, Rehab Eval Rogers (Sit-Stand Transfers) supervision Physical Assist/Nonphysical Assist: Sit/Stand 1 person assist Weight-Bearing Restrictions: Sit/Stand toe touch weight-bearing Assistive Device For Transfer: Sit/Stand 2 wheeled walker Gait Skills, PT Eval Level of Rogers: Gait stand-by assist Weight-Bearing Restrictions: Gait toe touch weight-bearing Assistive Device For Transfer: Gait 2 wheeled walker Gait Distance other (see comments) (60 ft) Gait Analysis, PT Eval Gait Pattern Used swing-to gait Stair Negotiation Level of Rogers: Stair Negotiation unable to perform Clinical Impression Therapy Frequency 2 times a day PT Therapy Completed Yes PT Therapies Still to Complete 13 Initial Evaluation Completed yes Continue care plan yes Today's Treatment Included Gait, transfers, ther ex's, HEP Therapist Recommendations At Discharge Recommendations PT Services recommended at Discharge Assessment VTE Prevention/Management On - Compression stockings (graduated);On - Foot pump device Factors that modified this intervention Patient limited by fatigue in UEs during ambulation Progress toward goals Patient has met all goals except gait (70 ft goal). Plan Plan for next visit If patient is still here, will continue with exercises per protoocl for strengthening, transfers, and gait training. Maintain frequency yes * Maryam Zapata, [facility],PharmD - 11/24/2018 1:26 PM EST Apixaban (Eliquis) Patient Education / Transition of Care PATIENT: Danyelle Haskins Room/Bed: [facility] Apixaban (Eliquis) Education Patient was provided with Apixaban (Eliquis) Education Sheet. Discussed in detail with patient about what Apixaban is, to take as directed, what to do if a dose is missed, and emphasized that compliance is extremely important to avoid stroke or any other serious event. Additional education was provided regarding side effects that should be reported to their physicianor health direct care supervisor as soon as possible. I also advised the patient to provide an updated medication list to all health career technical education teacher as certain medications can interact with apixaban. Patient verbally acknowledged an understanding of the information provided. Please contact pharmacyif there are any questions. Signed: Maryam Zapata, [facility],PharmD, [facility] Phone: [phone] Date/Time: 11/24/2018 1:26 PM * Krystal Bravo, CHARMAINE - 11/23/2018 3:04 PM EST Formatting of this note may be different from the original. 11/23/18 1440 Subjective RN Approved Intervention as tolerated Existing Precautions/Restrictions fall;weight bearing (TTWB in L LE) Subjective Reports pt just returned from bathroom, sitting up in chair Cognitive Status Examination Orientation Status (Cognition) oriented x 4 Level of Consciousness alert Able to Follow Commands (Communication) WNL Personal Safety and Judgment intact General Pain Documentation (Adult, OB, Peds) Presence of Pain denies pain/discomfort Assessment Assessment Narrative Pt educated and complete isometric exercises in UE in forward, backward and side to side with therapist assist for resistance, due to patient having bilateral shoulder pain and decreased use of UE following exercises with weight and AROm in the past, also educated and complete elbow flexion and extension 1x10 each, will follow up next session Clinical Impression Patient Instruction UE exercises Therapist Information License # [id number] * Tanvi Hernandez, GEAR CODING MACHINE OPERATOR - 11/23/2018 1:43 PM EST Formatting of this note may be different from the original. DAILY PROGRESS NOTE Date of Evaluation: 11/23/18 1:44 PM [facility] LOS: 2 days SUBJECTIVE: Patient seen and examined. Chart, medications, labs all reviewed. Patient denies all reports of BROWN, BV, LH, Dizziness, Fever, Chills, Nausea, Vomiting, Diarrhea, or Pain. She has no complaints, working with therapy. Vital Signs: Blood pressure 150/68, pulse 73, temperature 97.9 F (36.6 C), temperature source Oral,resp. rate 16, height 1.727 m (5' 8 ), weight 96 kg (211 lb 11.2 oz), SpO2 98 %. O2 Sat (%): 98 % (11/23 1155) O2 Device: room air (11/23 1155) Flow (L/min): 2 (11/23 0730) Intake and Output: Intake/Output Summary (Last 24 hours) at 11/23/18 1344 Last data filed at 11/23/18 1230 Gross per 24 hour Intake 540 ml Output 1020 ml Net -480 ml Daily Weight: Wt Readings from Last 3 Encounters: 11/21/18 96 kg (211 lb 11.2 oz) 10/13/18 95.3 kg (210 lb) 08/30/18 92.1 kg (203 lb) PHYSICAL EXAM: General: Patient resting comfortably. Awake. No acute distress. Cardiovascular: Regular rate and rhythm, without murmurs, rubs, or gallops. Respiratory: Bilateral Upper and Lower Lobes without wheezes, rales, or rhonchi Abdomen: Soft, rounded, non-tender. Bowel sounds present x4 quadrants. No rebound. No organomegaly or masses noted upon deep palpation. Extremities: No edema, clubbing or cyanosis, pulses palpable 2+ distally. Skin: Warm, Dry, Intact. Dressing dry and intact Diagnostics: Lab Results Component Value Date WBC 5.6 11/23/2018 HGB 10.5 (L) 11/23/2018 HCT 30.2 (L) 11/23/2018 PLATELET 181 11/23/2018 MCV 99.8 11/23/2018 @LASTMAGNESIUM(1D,2)@ Lab Results Component Value Date INR 0.90 10/23/2018 INR 0.97 07/01/2017 PT 12.1 10/23/2018 PT 12.5 07/01/2017 Lab Results Component Value Date CREATSERUM 0.6 10/23/2018 BUN 17 10/23/2018 SODIUM 139 10/23/2018 POTASSIUM 4.0 10/23/2018 CHLORIDE 105 10/23/2018 CO2 25 10/23/2018 Lab Results Component Value Date SPGRVTYUR <1.005 (L) 10/23/2018 GLUCOSEURINE NEGATIVE 10/23/2018 BILIRUBINURI NEGATIVE 10/23/2018 KETONESURINE NEGATIVE 10/23/2018 NITRITESURIN NEGATIVE 10/23/2018 LEUKOCESTUR NEGATIVE 10/23/2018 WBCURINE NEGATIVE 07/01/2017 RBCURINE 1 TO 5 07/01/2017 BACTERIAURIN NEGATIVE 07/01/2017 Impression and Plan: Principal Problem: Pain in left knee Active Problems: Obesity: body mass index of 30.0-34.9 Benign hypertension Rheumatoid arthritis GERD (gastroesophageal reflux disease) Obesity: body mass index of 30.0-34.9 Lifestyle changes and dietary modifications Benign hypertension Continue outpatient therapy Add when necessary for systolic blood pressure greater than 160 Rheumatoid arthritis Resume outpatient therapy when okay per orthopedic surgery GERD (gastroesophageal reflux disease) Continue PPI daily Pain in left knee S/p left TKA POD#2 PT OT social service worker discharge planning DVT prophylaxis Eliquis PT OT SS for dc planning- will likely discharge next 24-48 hours to [facility]/DVT prophylaxis with protonix and SCD and Eliquis Associated attestation - Brady Lozoya MD - 11/23/2018 4:06 PM EST I have personally seen and examined Danyelle Haskins and I agree with the physical exam as stated below. I have personally reviewed all available clinical data related to today's encounter including, but not limited to, radiology images and reports, laboratory data, and procedure reports. I have been fully involved in formulation of the assessment and plan and agree with the GEAR CODING MACHINE OPERATOR findings and plan of care as documented. I agree with their findings and plan with any exceptions or additions noted below. Doing well today. Principal Problem: Pain in left knee Active Problems: Obesity: body mass index of 30.0-34.9 Benign hypertension Rheumatoid arthritis GERD (gastroesophageal reflux disease) Synovial hernia * Demarcus Hutchison, VISUAL SUPERVISOR - 11/23/2018 11:39 AM EST Formatting of this note may be different from the original. 11/23/18 1105 Subjective RN Approved Intervention as tolerated Existing Precautions/Restrictions fall;weight bearing (TTWB L LE, knee brace at all times -10 degrees ext) Subjective Reports Pt sitting in bedside chair upon arrival this session. Pt agreeable for therapy and denies any pain at rest. Cognitive Status Examination Orientation Status (Cognition) oriented x 4 Level of Consciousness alert;cooperative Able to Follow Commands (Communication) WNL Personal Safety and Judgment intact General Pain Documentation (Adult, OB, Peds) Presence of Pain denies pain/discomfort Pain Location knee, left Pain Management Interventions cold application Select Pain Scale (Pt denies any pain in L knee this therapy session.) Objective Therapeutic Interventions Pt sitting in bedside chair upon arrival this session. Pt states that shefelt like knee brace had slid down leg. VISUAL SUPERVISOR began with readjusting knee brace in proper position. Pt then stood to FWW, CGA with pt using B UE support on arms of chair to push to rise with pt able tomaintain NWB on L LE well. Pt then ambulated outside of room and back for approx 35ft with slow swing to pattern with 2 short standing rest breaks due to UE fatigue. Pt then retunred to sitting in bedside chair and pt then completed LE ther ex including on R LE: LAQs, ankle pumps, QS, GS, SLRs, andhips abduction x10-15 reps each, on L LE: ankle pumps and glute sets x10-15 reps each. Pt remaiend s itting in bedside chair with LEs elevated and ice pack applied to L knee. Call light left within reach. Communication Continued pt ed for strengthening exercises and weight bearing restrictions. Pt usingNWB on L LE due to neuropathy Transfer Skill: Sit To Stand, Rehab Eval Rogers (Sit-Stand Transfers) contact guard Physical Assist/Nonphysical Assist: Sit/Stand 1 person assist Weight-Bearing Restrictions: Sit/Stand toe touch weight-bearing Assistive Device For Transfer: Sit/Stand 2 wheeled walker Gait Skills, PT Eval Level of Rogers: Gait contact guard Weight-Bearing Restrictions: Gait toe touch weight-bearing (pt using NWB on L LE) Assistive Device For Transfer: Gait 2 wheeled walker Gait Distance (35ft) Gait Analysis, PT Eval Gait Pattern Used swing-to gait Plan Plan for next visit Continue with strenghtening and transfers/gait as tolerated Maintain frequency yes * New Mcclure MD - 11/23/2018 8:44 AM EST Formatting of this note may be different from the original. Total Joint Progress Note SUBJECTIVE: No new symptoms or complaints. Medically stable. No chest pain, shortness of breath or abdominal pain. OBJECTIVE: Lab Results Component Value Date WBC 5.6 11/23/2018 HGB 10.5 (L) 11/23/2018 HCT 30.2 (L) 11/23/2018 PLATELET 181 11/23/2018 MCV 99.8 11/23/2018 Lab Results Component Value Date SODIUM 139 10/23/2018 POTASSIUM 4.0 10/23/2018 CHLORIDE 105 10/23/2018 CO2 25 10/23/2018 BUN 17 10/23/2018 CREATSERUM 0.6 10/23/2018 GLUCOSE 93 10/23/2018 Vital Signs: Vitals: 11/23/18 0756 BP: 158/80 Pulse: 71 Resp: 16 Temp: 98 F (36.7 C) Patient is alert and oriented times three. Vascular: Dorsalis pedis/posterior tibial pulses both intact. Neuro:unchanged NV status with normal strength, function and sensation. Wound Appearance: Clean and dry, intact. Dressing: Clean/dry/intact. DVT Screening Exam: Calves soft/non-tender, luz marina hose and mechanical device on. Impression: status post TKA ext [facility] recon PLAN: 1. PT/OT 2. DVT prophylaxis 3. Discharge planning * Demarcus Hutchison, VISUAL SUPERVISOR - 11/22/2018 4:07 PM EST Formatting of this note may be different from the original. 11/22/18 1530 Subjective RN Approved Intervention as tolerated Existing Precautions/Restrictions fall;weight bearing (knee brace at all times -10 degrees ext, TTWB on L LE) Subjective Reports Pt sitting in bedside chair upon arrival this session. Pt agreeable for therapy and rates 2-3/10 pre therapy tx Cognitive Status Examination Orientation Status (Cognition) oriented x 4 Level of Consciousness alert;cooperative Able to Follow Commands (Communication) WNL Personal Safety and Judgment intact General Pain Documentation (Adult, OB, Peds) Presence of Pain complains of pain/discomfort Pain Location knee, right Pain Management Interventions cold application Select Pain Scale (Surgical, pain in R knee at 3-4/10 pre/post therpay tx) Objective Therapeutic Interventions Pt sitting in bedside chair upon arrival this session. Pt began with STS to FWW, CGa and then pt ambulated approx 20ft to wheel chair with swing to pattern. Pt then transfered to sitting in wheel chair and then pt trnasported to therapy gym. Pt then practiced modified car transfer with pt demonstarting good technique. Pt then transfered back to wheel chair and tranportedback to room. Pt then ambulated an additional 20 ft back to bedside chair. Pt then completed LE ther ex per protocol on R LE: LAQs, ankle pumps, QS, GS, SLRs, and hip abduction, on L LE : ankle pumpsand glute sets x10-15 reps each. Pt remaiend sitting in bedside chair with LEs elevated and ice pack applied to L knee. Call light left within reach and nurse in to administer medications. Communication Continued pt ed for strengthening exercises and weight bearing restrictions with pt still continuing to use NWB on L LE due to neuropathy. Transfer Skill: Sit To Stand, Rehab Eval Rogers (Sit-Stand Transfers) contact guard Physical Assist/Nonphysical Assist: Sit/Stand 1 person assist Weight-Bearing Restrictions: Sit/Stand toe touch weight-bearing (pt using NWB on L LE) Assistive Device For Transfer: Sit/Stand 2 wheeled walker Gait Skills, PT Eval Level of Rogers: Gait contact guard Weight-Bearing Restrictions: Gait toe touch weight-bearing (Pt using NWB on L LE) Assistive Device For Transfer: Gait 2 wheeled walker Gait Distance (20ft, 20ft) Gait Analysis, PT Eval Gait Pattern Used swing-to gait Plan Plan for next visit Plan to continue with strengthening and transfers/gait Maintain frequency yes * Aurora Arroyo, MAIL OPENER - 11/22/2018 12:52 PM EST Call received from [facility] stating they can take patient anytime on Tuesday afternoon or after. * Demarcus Hutchison, VISUAL SUPERVISOR - 11/22/2018 11:56 AM EST Formatting of this note may be different from the original. 11/22/18 1125 Subjective RN Approved Intervention as tolerated Existing Precautions/Restrictions fall;weight bearing (knee brace at all times -10 degrees ext, TTWB on L LE) Subjective Reports Pt sitting in recliner upon arrival this session. Pt agreeable for therapy and rates pain at 3-4/10 pre therapy and just finishing with OT Cognitive Status Examination Orientation Status (Cognition) oriented x 4 Level of Consciousness alert;cooperative Able to Follow Commands (Communication) WNL Personal Safety and Judgment intact General Pain Documentation (Adult, OB, Peds) Presence of Pain complains of pain/discomfort Pain Location knee, right Pain Management Interventions cold application Select Pain Scale (Surgical, pain in R knee at 3-4/10 pre/post therapy) Objective Therapeutic Interventions Pt sitting in bedside chair upon arrival this session. Pt began with LE ther ex per protocol on R LE: x2 sets ankle pumps, QS, and GS x15-20 reps each, on R LE: ankle pumps,QS, GS, hip abd, SLR, heel slides, and LAQs x10-15 reps each. Pt then completed STS to FWW, CGA andthen pt ambulated in room for approx 25ft with slow gait with pt maintaining NWB on L LE due to neur opathy on feet. Pt then retunred to bedside chair. Pt maintaining weight bearing restriction well throughout therapy session with pt stating UE fatigue during gait. Pt remained sitting in bedside chair with LEs elevated and ice pack applied to L knee. Call light left within reach. Communication Pt ed for strengthening exercises and weight bearing restrictions on L LE. Transfer Skill: Sit To Stand, Rehab Eval Rogers (Sit-Stand Transfers) contact guard Physical Assist/Nonphysical Assist: Sit/Stand 1 person assist Weight-Bearing Restrictions: Sit/Stand toe touch weight-bearing (NWB on L LE) Assistive Device For Transfer: Sit/Stand 2 wheeled walker Gait Skills, PT Eval Level of Rogers: Gait contact guard Weight-Bearing Restrictions: Gait toe touch weight-bearing (pt using NWB on L LE) Assistive Device For Transfer: Gait 2 wheeled walker Gait Distance 25 feet Gait Analysis, PT Eval Gait Pattern Used swing-to gait Plan Plan for next visit Plan to continue with strengthening, transfers/gait, and practice car transfer Maintain frequency yes * Jacey Valdez, GULLET SLITTER-GEAR CODING MACHINE OPERATOR - 11/22/2018 10:52 AM EST Formatting of this note may be different from the original. DAILY PROGRESS NOTE Date of Evaluation: 11/22/18 10:53 AM [facility] LOS: 1 day SUBJECTIVE: Patient seen and examined. Chart, medications, labs all reviewed. Patient denies all reports of BROWN, BV, LH, Dizziness, Fever, Chills, Nausea, Vomiting, Diarrhea, or Pain. Vital Signs: Blood pressure 169/77, pulse 83, temperature 97.7 F (36.5 C), temperature source Oral,resp. rate 18, height 1.727 m (5' 8 ), weight 96 kg (211 lb 11.2 oz), SpO2 99 %. O2 Sat (%): 99 % (11/22 816) O2 Device: nasal cannula (11/22 816) Flow (L/min): 2 (11/22 816) Intake and Output: Intake/Output Summary (Last 24 hours) at 11/22/18 1053 Last data filed at 11/22/18 0910 Gross per 24 hour Intake 1592 ml Output 1930 ml Net -338 ml Daily Weight: Wt Readings from Last 3 Encounters: 11/21/18 96 kg (211 lb 11.2 oz) 10/13/18 95.3 kg (210 lb) 08/30/18 92.1 kg (203 lb) PHYSICAL EXAM: General: Patient resting comfortably. Awake. No acute distress. Cardiovascular: Regular rate and rhythm, without murmurs, rubs, or gallops. Respiratory: Bilateral Upper and Lower Lobes without wheezes, rales, or rhonchi Abdomen: Soft, rounded, non-tender. Bowel sounds present x4 quadrants. No rebound. No organomegaly or masses noted upon deep palpation. Extremities: No edema, clubbing or cyanosis, pulses palpable 2+ distally. Skin: Warm, Dry, Intact. Diagnostics: Lab Results Component Value Date WBC 4.9 11/22/2018 HGB 11.5 (L) 11/22/2018 HCT 33.6 (L) 11/22/2018 PLATELET 202 11/22/2018 MCV 101.8 (H) 11/22/2018 @LASTMAGNESIUM(1D,2)@ Lab Results Component Value Date INR 0.90 10/23/2018 INR 0.97 07/01/2017 PT 12.1 10/23/2018 PT 12.5 07/01/2017 Lab Results Component Value Date CREATSERUM 0.6 10/23/2018 BUN 17 10/23/2018 SODIUM 139 10/23/2018 POTASSIUM 4.0 10/23/2018 CHLORIDE 105 10/23/2018 CO2 25 10/23/2018 Lab Results Component Value Date SPGRVTYUR <1.005 (L) 10/23/2018 GLUCOSEURINE NEGATIVE 10/23/2018 BILIRUBINURI NEGATIVE 10/23/2018 KETONESURINE NEGATIVE 10/23/2018 NITRITESURIN NEGATIVE 10/23/2018 LEUKOCESTUR NEGATIVE 10/23/2018 WBCURINE NEGATIVE 07/01/2017 RBCURINE 1 TO 5 07/01/2017 BACTERIAURIN NEGATIVE 07/01/2017 Impression and Plan: Principal Problem: Pain in left knee Active Problems: Obesity: body mass index of 30.0-34.9 Benign hypertension Rheumatoid arthritis GERD (gastroesophageal reflux disease) Obesity: body mass index of 30.0-34.9 Lifestyle changes and dietary modifications Benign hypertension Continue outpatient therapy Add when necessary for systolic blood pressure greater than 160 Rheumatoid arthritis Resume outpatient therapy when okay per orthopedic surgery GERD (gastroesophageal reflux disease) Continue PPI daily Pain in left knee S/p left TKA POD#1 PT OT social service worker discharge planning DVT prophylaxis Eliquis PT OT SS for dc planning GI/DVT prophylaxis with protonix and SCD and Eliquis Associated attestation - Brady Lozoya MD - 11/22/2018 4:50 PM EDMUND Haskins was personally seen and examined. I agree with the examination, assessment, and plan as described below by the ENHANCED ENVIRONMENTAL OPERATOR with the following additions/exceptions: Feeling well today. EXAMINATION: Blood pressure 167/83, pulse 89, temperature 98 F (36.7 C), temperature source Oral, resp. rate 18,height 1.727 m (5' 8 ), weight 96 kg (211 lb 11.2 oz), SpO2 99 %. LUNGS: CTAB HEART: RRR ABDOMEN: Non-distended ASSESSMENT & PLAN: Principal Problem: Pain in left knee Active Problems: Obesity: body mass index of 30.0-34.9 Benign hypertension Rheumatoid arthritis GERD (gastroesophageal reflux disease) Synovial hernia Post operative pain - Will continue with current medical managment. - Continue with post operative care. * Rajinder Green, NIURKA-GEAR CODING MACHINE OPERATOR - 11/22/2018 8:52 AM EST Formatting of this note may be different from the original. Total Joint Progress Note P O DAY # 1 PROCEDURE: l extensor reconstruction SUBJECTIVE: No new symptoms or complaints PAIN RATIN/10 OBJECTIVE: Lab Results Component Value Date WBC 4.9 11/22/2018 HGB 11.5 (L) 11/22/2018 HGB 12.5 10/23/2018 HGB 10.9 (L) 07/21/2017 HCT 33.6 (L) 11/22/2018 HCT 36.8 10/23/2018 HCT 31.4 (L) 07/21/2017 PLATELET 202 11/22/2018 MCV 101.8 (H) 11/22/2018 Lab Results Component Value Date SODIUM 139 10/23/2018 POTASSIUM 4.0 10/23/2018 CHLORIDE 105 10/23/2018 CO2 25 10/23/2018 BUN 17 10/23/2018 BUN 15 07/21/2017 BUN 16 07/20/2017 CREATSERUM 0.6 10/23/2018 CREATSERUM 0.6 (L) 07/21/2017 CREATSERUM 0.6 (L) 07/20/2017 GLUCOSE 93 10/23/2018 Vital Signs: Vitals: 11/22/18 0411 BP: 166/74 Pulse: 80 Resp: 18 Temp: 97.9 F (36.6 C) Patient is alert and oriented times three. Abdomen: Soft, non-tender without organomegaly and bowel sounds are active Vascular: Dorsalis pedis/posterior tibial pulses RIGHT/LEFT/BILATERAL: Bilateral NORMAL / ABNORMAL (RESULT): Normal Neuro: Intact/deficit: intact to light touch Wound Appearance: DESCRIPTION; WOUND: incision Erythema: PRESENT OR ABSENT: absent Drainage none Dressing: Clean/dry/intact DVT Screening Exam: Calves soft/non-tender Luz Marina hose: PRESENT OR ABSENT: present Foot pumps/ SCD's: PRESENT OR ABSENT: present Hemovac Drain Output: 60 mL/last shift Physical Therapy: ROM: na degrees Gait Distance: Up in room Feet: ASSESSMENT: sp l extensor mechanism recon pod 1 PLAN: 1. PT/OT 2. IV antibiotics 3. DVT prophylaxis 4. Discharge planning DISCHARGE PLANNING: plans; post hospital: SEE SS NOTES * Nidhi Jiang - 11/22/2018 8:43 AM EST CM met with patient on this date to discuss discharge plans. Patient explained that she is currently living alone in a single story home. Patient stated that she does not have any children, but she does have family in the area that is helpful and supportive. Patient states that she is currently employed at [employer] in [place]. She stated that prior to the surgery she was completely independent and able to cook, clean and drive. Patient states that her goal upon discharge it to go to an extended care facility to get more therapy for her knee and regain her strength. Patient stated that she wanted to go to the [facility] as it is close to her home. Patient reviewed and signed the Area Nursing facility list for [facility]. CM to make referral. CM to follow. * Krystal Bravo, CHARMAINE - 11/21/2018 6:00 PM EST Formatting of this note may be different from the original. 11/21/18 1640 General Information RN Approved Intervention as tolerated Admitting Diagnosis left extensor mechanism reconstruction Surgical Procedure left knee extensor mechanism reconstruction, revision Past Surgical History left TKA, excision of ganglion cyst on wrist, right TKA, hysterectomy, right knee arthroscopy, uterine ablation, back fusion, left patellectomy, tonsillectomy, D and C x2 Past Medical History anemia, ankle swelling, arthritis, back pain, connective tissue disease, depression, insomnia, neuropathy, osteoarthritis, pneumonia, RSD Existing Precautions/Restrictions fall;weight bearing (knee brace at all times in -10 deg extension, TTWB L LE) Previous Level of Function Bed Mobility/Transfers independent Bathing independent Upper Body Dressing independent Lower Body Dressing independent Grooming independent Toileting independent Eating independent Home Management Skills independent General Pain Documentation (Adult, OB, Peds) Presence of Pain complains of pain/discomfort Pain Location knee, left Pain Management Interventions cold application Select Pain Scale (2/10) Home Setting Residence Home Lives With alone First floor bed/bathroom yes;walk-in shower;grab bars Second floor bed/bathroom no Number of Stairs to Enter Home 2 (has ramp) Number of Stairs Within Home 0 Equipment Available wheeled walker;shower chair;elevated toilet seat;poultry process worker;sock-aid;long-handled shoe horn;hand held shower hose Cognitive Status Examination Orientation Status (Cognition) oriented x 4 Level of Consciousness alert Able to Follow Commands (Communication) WNL Personal Safety and Judgment intact Short Term Memory intact Farm Equipment Maintenance Supervisor Memory intact Vision (check all that apply) Vision prescription glasses Sensory Examination Sensory Examination WFL (numbness in bilateral LE at baseline) Range of Motion (ROM) Range of Motion Examination bilateral upper extremity ROM was WFL Bed Mobility Skill: Supine to Sit, Rehab Eval Level of Rogers: Supine/Sit stand-by assist Physical Assist/Nonphysical Assist: Supine/Sit 1 person assist Transfer Skill: Sit to Stand, Rehab Eval Level of Rogers: Sit/Stand contact guard Physical Assist/Nonphysical Assist: Sit/Stand 1 person assist Weight-Bearing Restrictions: Sit/Stand toe touch weight-bearing Assistive Device for Transfer: Sit/Stand wheeled walker Upper Body Dressing Level of Rogers (set up) Lower Body Dressing Level of Rogers moderate assist (50% patients effort) Physical Assist/Nonphysical Assist 1 person assist Assistive Device poultry process worker General Therapy Interventions Planned Therapy Interventions (OT Eval) ADL retraining;balance training;strengthening;transfer training PRIOR LEVEL AM-PAC Activity Inpatient Short Form Putting on/Taking Off Lower Body Clothing 4 - No Assistance Bathing 4 - No Assistance Toileting 4 - No Assistance Putting on/Taking Off Upper Body Clothing 4 - No Assistance Grooming 4 - No Assistance Eating 4 - No Assistance PRIOR LEVEL AM-PAC Activity Raw Score 24 PRIOR LEVEL AM-PAC Activity Functional Limitation/Modifier 0.00% Prior Functional Impairment in Daily Activity - CURRENT AM-PAC Daily Activity Inpatient Short Form Putting on/Taking Off Lower Body Clothing 2 - A Lot of Assistance Bathing 2 - A Lot of Assistance Toileting 3 - A Little Assistance Putting on/Taking Off Upper Body Clothing 4 - No Assistance Grooming 4 - No Assistance Eating 4 - No Assistance CURRENT AM-PAC Activity Raw Score 19 CURRENT AM-PAC Activity Functional Limitation/Modifier 42.80% Currently Impaired in Daily Activity - CK PROJECTED AM-PAC Activity Raw Score 22 PROJECTED AM-PAC Activity Functional Limitation/Modifier 25.80% - CJ Assessment Assessment Narrative Pt demonstrates good safety awareness during functional mobility and transfer training, following instruction, patient educated on LB dressing techniques donning underwear and shorts in sitting and standing CGA, patient educated on modified device to hold pants up that hooks onto top, patient verbalize understanding Clinical Impression Patient Instruction dressing techniques, transfers Rehab Potential (OT Eval) good, to achieve stated therapy goals Therapy Frequency 7 times a week Initial Evaluation Completed yes Today's Treatment Included OT evaluation, self care training Continue care plan yes Goals Goals For Discharge discharge to [facility] Discussed risk / benefits with patient Therapist Recommendations At Discharge Recommendations OT Services recommended at Discharge Plan Plan Narrative continue with bathing, dressing and transfer training Therapist Information License # [id number] 1. Pt will complete LB dressing min assist for left LE LUZ MARINA hose management and brace 2. Pt will complete sponge bathing min assist for Left LE 3. Pt will complete toileting to bathroom commode SBA 4. Pt will complete hygiene/grooming sitting EOB set up 5. Pt will complete B UE HEP indep to improve UE strength for functional mobility * Snow Purcell, PT - 11/21/2018 5:24 PM EST Formatting of this note may be different from the original. 11/21/18 1630 General Information RN Approved Intervention as tolerated Diagnosis Left extensor mechanism disruption Surgical Procedure Left knee extensor mechanism reconstruction Past Medical History anemia, OA, back pain, connective tissue disease, sciatica, neuropathy, pneumonia, RSD, Past Surgical History Left TKA, Excision L ganglion cyst, excision R ganglion cyst, R WILFRED, hysterectomy, R knee scope, L2-5 fusion, patellectomy, patellar fixation Existing Precautions/Restrictions fall;weight bearing;other (see comments) (Knee ext brace at all times -10 deg extension, TTWB LLE.) Left Lower Extremity (Weight Bearing Status) toe touch weight bearing (Brace at all times. No L knee flexion) Home Setting Residence Home Lives With alone First floor bed/bathroom yes Second floor bed/bathroom no Number of Stairs to Enter Home 2 (has ramp) Stair Railings at Home with rail Equipment Available wheeled walker;straight cane Previous Level of Function Ambulation Skills needs device Assistive Device straight cane Level of Ambulation community General Pain Documentation (Adult, OB, Peds) Pain Location knee, left (210) Pain Management Interventions positioning;declines intervention Cognitive Status Examination Orientation Status (Cognition) oriented x 4 Level of Consciousness alert Able to Follow Commands (Communication) WNL Personal Safety and Judgment intact Range of Motion (ROM) Range of Motion Examination (RLE WFL, L hip and knee WFL, L knee NT.) Manual Muscle Testing (MMT) Manual Muscle Testing Results deficits as listed below (R hip 4/5, L hip 4/5) Bed Mobility Skill: Supine to Sit, Rehab Eval Level of Rogers: Supine/Sit stand-by assist Transfer Skill: Sit To Stand, Rehab Eval Rogers (Sit-Stand Transfers) minimum assist (75% patient effort) Weight-Bearing Restrictions: Sit/Stand toe touch weight-bearing Assistive Device For Transfer: Sit/Stand 2 wheeled walker Gait Skills, PT Eval Level of Rogers: Gait contact guard Weight-Bearing Restrictions: Gait toe touch weight-bearing (Pt maintained NWB due to neuropathy in LLE.) Assistive Device For Transfer: Gait 2 wheeled walker Gait Distance 20 feet Gait Analysis, PT Eval Gait Pattern Used swing-to gait Balance Additional Documentation (Standing balance fair-) Sensory Examination Sensory Examination WFL (Numbness in both LE below knees.) General Interventions Planned Therapy Interventions balance training;gait training;edema control;neuromuscular re-education;strengthening;transfer training Additional Comments Pts brace tightened slightly due to it shifting when pt moved in bed. Pt reports brace feels better after being tightened a little. Pt performed ankle pumps bilaterally, glut sets, hip abduction in bed, and SLR on LLE x10. Brace held knee locked in extension with all movement. Pt transferred to EOB with SB assist, and pt educated on sequencing for transfers and gait using FWW to maintain TTWB on LLE. Pt transferred sit to stand with min assist, and ambulated 20 ft with FWW and CG assist. Pt actually maintainined NWB on LLE due to neuropathy, and being unable to feel how much weight is on LLE during TTWB. Pt safe with NWB on LLE using FWW. Pt unable to ambulate long distance due to OA in shoulders, and right knee. Pt educated to push call button if at any time brace becomes too tight due to swelling, and pt reports understanding. PRIOR LEVEL [facility] Basic Mobility Inpatient Short Form Turning over in bed 4 - No Assistance Sitting/standing from chair 4 - No Assistance Moving from lying on back to sitting 4 - No Assistance Moving to and from bed to chair 4 - No Assistance Walk in hospital room 4 - No Assistance Climbing 3-5 steps with a railing 4 - No Assistance PRIOR LEVEL [facility] Mobility Raw Score 24 PRIOR LEVEL [facility] Mobility Functional Limitation/Modifier 0.00% Prior Functional Impairment in Basic Mobility - CH CURRENT [facility] Basic Mobility Inpatient Short Form Turning over in bed 3 - A Little Assistance Sitting/standing from chair 3 - A Little Assistance Moving from lying on back to sitting 3 - A Little Assistance Moving to and from bed to chair 3 - A Little Assistance Walk in hospital room 3 - A Little Assistance Climbing 3-5 steps with a railing 2 - A Lot of Assistance CURRENT [facility] Mobility Raw Score 17 CURRENT [facility] Mobility Functional Limitation/Modifier 50.57% Currently Impaired in Basic Mobility - CK Projected [facility] Mobility Raw Score 20 Projected [facility] Mobility Functional Limitation/Modifier 35.83% Projected Functional Impairment in Basic Mobility - CJ Assessment Assessment Narrative Pt moving well given restrictions and OA in surrounding joints. Pt will be limited with distance due to OA in shoulders and R knee. Pt able to maintain TTWB/NWB on LLE during gait and brace fitting well at this time. Discharge Recommendations ECF due to high fall risk, and inability to perform all ADLS and self care at home alone. Clinical Impression Criteria for Skilled Therapeutic Interventions Met (PT Eval) yes Impairments Found (PT Eval) gait, locomotion, and balance;muscle performance Rehab Potential (PT Eval) good, to achieve stated therapy goals Therapy Frequency 2 times a day Initial Evaluation Completed yes Continue care plan yes Today's Treatment Included PT Eval, gait, transfers,pt education, ther-ex. Therapist Recommendations At Discharge Recommendations PT Services recommended at Discharge Plan Plan Narrative Next visit progress mobility, work on LE ther-ex for L hip/ankle, and for RLE, and practice car transfers as able. Therapist Information License # [id number] PT Goals: 1. Pt will demonstrate understanding of all precautions during functional mobility. 2. Pt will perform all transfers with WW and SB assist to improve safety at home. 3. Pt will ambulate 70 ft with FWW and SB assist with TTWB LLE . 4. Pt will be independent with HEP per protocol. Addendum: Following evaluation Dr. Mcclure requested that pt perform no SLR on LLE. PTAs notified. * Rajinder Green APRN-MARTY - 11/21/2018 2:04 PM EST THIS PATIENT HAS HAD ORTHOPEDIC SURGERY AND IS EXPECTED TO HAVE PAIN REQUIRING NARCOTICS FOR >7 DAYS AND MAY NEED UP TO 12 tabs of oxycodone PER DAY AND THEREFORE 60tabs ARE BEING DISPENSED IN ACCORDANCE WITH POC DISCUSSED WITH DR MCCLURE. in this encounter* Rajinder Green APRN-CNP - 12/14/2018 3:00 PM EST Formatting of this note may be different from the original. HISTORY OF PRESENT ILLNESS: Danyelle is an established patient of [facility]. She is here today for followup. She is now about 3 weeks status post left extensor mechanism repair with grafting of the extensor mechanism. She reports overall she has been doing well. She has been residing in the extended care facility. She has been largely nonweightbearing on the left lower extremity. She understands that the toe-touch weightbearing was ordered postoperatively, but she just feels better not putting any weight through the leg. She has been compliant with the TROM brace at all times and had no problems with the wound. She has no changes constitutionally. No fevers or chills. PHYSICAL EXAMINATION: GENERAL: She is alert, oriented, and age-appropriate female, in no acute distress. She is pleasant and cooperative. EXTREMITIES: The left lower extremity has thigh and calf, which are soft and nontender. Normal neurovascular status. There is a well-healed anterior midline knee incision with renae removed previously. There is no drainage, dehiscence, discharge, signs or symptoms of infection. She has negative Homans sign. Normal neurovascular status, and range of motion of the knee is not tested given the postoperative instructions for no flexion. The right lower extremity has thigh and calf, which are soft and nontender. Normal neurovascular status. Negative Homans sign. DIAGNOSTIC STUDY INTERPRETATION: Two views of the left knee demonstrate cemented total knee arthroplasty. It is in unchanged position and alignment when compared to previous imaging. There is hardware present in the anterior tibia as well as an increase in the cement in the anterior tibia noted when compared to previous imaging, consistent with the previous extensor mechanism reconstruction. The patella appears in unchanged position and alignment when compared to previous imaging, and there is hardware overlying the imaging from the brace which is in place. ASSESSMENT: Three weeks status post left extensor mechanism repair. PLAN: I reviewed my findings with Danyelle. At this point, I am pleased with the outcomes of the operation. She has had no problems with the wound. It appears well healed. At this point, I am okay with her resuming her DMARD medications per her previous regimen prescribed by her cornetist. I will leave this up to the house physician at the [facility], where she is residing today. She can always just wait until she goes home in the next few days. We will plan for her to return to the office at 6 weeks postop in about 3 weeks for repeat clinical and radiographic examination, where we will consider advancing of weightbearing and perhaps range of motion. She will be seen again at that time. All of her questions and concerns were addressed to her satisfaction. ([id number]) Procedures I have reviewed the findings of the clinical integrated logistics support manager and agree with their assessment. [facility] Nurse Established Patient Intake Room#: 4 Date: 12/14/2018 2:47 PM Patient: Danyelle Haskins MR#: [id number] : 1955 Age: 63 y.o. 3 wk s/p L knee revision. Pt states she is doing well, denies any pain. T ROM brace in place lockedin extension. Referring Physician: Rajinder Green APRN-CNP Insurance: Payor: MEDICARE / Plan: MEDICARE A AND B / Product Type: *No Product type* / Chief Complaint Patient presents with Left Knee - Post Op Visit Visit Vitals Temp 97.9 F (36.6 C) (Temporal) Ht 1.727 m (5' 8 ) Wt 92.1 kg (203 lb) BMI 30.87 kg/m Pain Recent Labs No results found for: CRP No results found for: SEDRATE Lab Results Component Value Date WBC 4.5 11/24/2018 HGB 11.5 (L) 11/24/2018 HCT 33.5 (L) 11/24/2018 PLATELET 191 11/24/2018 MCV 101.1 (H) 11/24/2018 History Past Medical History: Diagnosis Date Pneumonia 2010 History of blood transfusion 2012 bleeding ulcer; pt states had a reaction but does not remember what occured Active advance directive Living Will and Health Care POA Anemia Fe deficiency 30 years ago Anesthesia complication prolonged sedation, freezing cold Ankle swelling bilateral Arthritis Back pain Blood transfusion reaction pt unsure of reaction type Connective tissue disease non-specific Depression Easy bruising History of recent steroid use back injections Insomnia Joint pain Leg pain sciatica radiating to right posterior leg to knee Muscle weakness arms and legs; uses cane or walker for ambulation 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 No current use of beta heidi Numbness feet Osteoarthritis Poor tolerance for activity less than 4 mets due to neuropathy, arthritis, chronic back pain Preoperative clearance Dr Batres 11/15/18 RSD (reflex sympathetic dystrophy) Swelling of multiple joints L knee and right hip Ulcer gastric Use of cane as ambulatory aid Wears glasses Past Surgical History: Procedure Laterality Date REVISION ARTHROPLASTY KNEE Left 11/21/2018 Laterality: Left; Surgeon: New Mcclure MD; Location: [facility] OR EXTRACTION EXTRACAPSULAR CATARACT W/ IMPLANT (ECCE IOL) Bilateral 2018 [facility] TREATMENT OPEN PATELLAR FX W/ INTERNAL FIXATION OR PATELLECTOMY Left 07/18/2017 Laterality: Left; Surgeon: New Mcclure MD; Location: [facility] OR PATELLECTOMY/HEMIPATELLECTOMY Left 07/18/2017 Laterality: Left; Surgeon: New Mcclure MD; Location: [facility] OR EXCISION SKIN LESION 07/2016 ARTHROPLASTY KNEE TOTAL Left 2014 OTHER SURGICAL 2011 back fusion l2,3,4,5 KNEE ARTHROSCOPY Right 2007 HYSTERECTOMY 2006 [facility] DIAGNOSTIC/THERAPEUTIC NONOBSTETRICAL 2005 x2 OTHER SURGICAL 11/1998 eye lid celanzion EXCISION GANGLION CYST WRIST Right 1982 EXCISION GANGLION CYST Left EXCISION SKIN LESION sebaceous cyst off back HIP REPLACEMENT Right 2017 OTHER SURGICAL plantar wart removed OTHER SURGICAL cyst off top of head OTHER SURGICAL uterine ablation OTHER SURGICAL joint replacement TONSILLECTOMY Family History: Her family history includes Bleeding or Clotting Problems in her mother; Cancer in her father and sister; Diabetes in her sister; Heart Disease - Other in her mother; Hypertension in her mother. Social History: Her reports that she has never smoked. She has never used smokeless tobacco. She reports that she does not drink alcohol or use drugs. Outpatient Medications Prior to Visit Medication Sig Dispense Refill acetaminophen 325 MG tablet Take 2 tablets by mouth every 4 hours as needed for Mild Pain. 50 tablet 1 ALPHA LIPOIC ACID PO take 200 mg by mouth 3 times daily.. apixaban 2.5 MG Tab tablet Take 1 tablet by mouth every 12 hours. This medication is for blood clotprevention 70 tablet 0 ascorbic acid 500 MG Tab Take 500 mg by mouth daily. baclofen 10 MG Tab Take 20 mg by mouth 3 times daily as needed. Biotin 39825 MCG Tab take 2 tablets by mouth 2 times daily.. Calcium Carb-Cholecalciferol (CALCIUM 600 + D) 600-200 MG-UNIT Tab tablet Take 2.5 tablets by mouthDaily (with lunch). clonazePAM 0.5 MG Tab tablet TAKE 1/2 TO 1 TABLET BY MOUTH AT BEDTIME NEEDED 1 docusate 100 MG Cap capsule Take 1 capsule by mouth 2 times daily. 60 capsule 0 folic acid 1 MG Tab tablet Take 1 mg by mouth daily. Glucosamine-Chondroitin (GLUCOSAMINE CHONDR COMPLEX PO) take 1 tablet by mouth daily.. ibandronate 150 MG Tab take 150 mg by mouth every 30 days.. Multiple Vitamins-Minerals (MULTIVITAMIN ADULT PO) take 1 tablet by mouth at bedtime.. pantoprazole [address] take 40 mg by mouth every evening at 6 PM.. Psyllium (METAMUCIL FIBER PO) take 1 Dose by mouth every evening.. triamterene-hydrochlorothiazide 37.5-25 MG Cap take 1 capsule by mouth as needed (edema).. zonisamide 100 MG Cap take 100 mg by mouth at bedtime.. oxyCODONE 5 MG Tab tablet Take 1-2 tabs po q 4-6 hours PRN pain. 60 tablet 0 No facility-administered medications prior to visit. Current Outpatient Prescriptions: acetaminophen 325 MG tablet, Take 2 tablets by mouth every 4 hours as needed for Mild Pain., Disp: 50 tablet, Rfl: 1 ALPHA LIPOIC ACID PO, take 200 mg by mouth 3 times daily.., Disp: , Rfl: apixaban 2.5 MG Tab tablet, Take 1 tablet by mouth every 12 hours. This medication is for blood clot prevention, Disp: 70 tablet, Rfl: 0 ascorbic acid 500 MG Tab, Take 500 mg by mouth daily., Disp: , Rfl: baclofen 10 MG Tab, Take 20 mg by mouth 3 times daily as needed. , Disp: , Rfl: Biotin 53983 MCG Tab, take 2 tablets by mouth 2 times daily.. , Disp: , Rfl: Calcium Carb-Cholecalciferol (CALCIUM 600 + D) 600-200 MG-UNIT Tab tablet, Take 2.5 tablets by mouth Daily (with lunch). , Disp: , Rfl: clonazePAM 0.5 MG Tab tablet, TAKE 1/2 TO 1 TABLET BY MOUTH AT BEDTIME NEEDED, Disp: , Rfl: 1 docusate 100 MG Cap capsule, Take 1 capsule by mouth 2 times daily., Disp: 60 capsule, Rfl: 0 folic acid 1 MG Tab tablet, Take 1 mg by mouth daily., Disp: , Rfl: Glucosamine-Chondroitin (GLUCOSAMINE CHONDR COMPLEX PO), take 1 tablet by mouth daily.., Disp: , Rfl: ibandronate 150 MG Tab, take 150 mg by mouth every 30 days.., Disp: , Rfl: lisinopril 10 MG Tab tablet, Take 10 mg by mouth daily., Disp: , Rfl: Multiple Vitamins-Minerals (MULTIVITAMIN ADULT PO), take 1 tablet by mouth at bedtime.., Disp: , Rfl: pantoprazole [address], take 40 mg by mouth every evening at 6 PM.., Disp: , Rfl: Psyllium (METAMUCIL FIBER PO), take 1 Dose by mouth every evening.. , Disp: , Rfl: triamterene-hydrochlorothiazide 37.5-25 MG Cap, take 1 capsule by mouth as needed (edema).., Disp: , Rfl: zonisamide 100 MG Cap, take 100 mg by mouth at bedtime.., Disp: , Rfl: oxyCODONE 5 MG Tab tablet, Take 1-2 tabs po q 4-6 hours PRN pain., Disp: 60 tablet, Rfl: 0 Allergies: She is allergic to gralise [gabapentin (once-daily)]; alendronate; gabapentin; and oxcarbazepine. * Marcie Lantigua LPN - 12/14/2018 3:00 PM EST Formatting of this note may be different from the original. Ortho Nurse Established Patient Intake Room#: 4 Date: 12/14/2018 2:47 PM Patient: Danyelle Haskins MR#: [id number] : 1955 Age: 63 y.o. 3 wk s/p L knee revision. Pt states she is doing well, denies any pain. T ROM brace in place lockedin extension. Referring Physician: Rajinder Green APRN-CNP Insurance: Payor: MEDICARE / Plan: MEDICARE A AND B / Product Type: *No Product type* / Chief Complaint Patient presents with Left Knee - Post Op Visit Visit Vitals Temp 97.9 F (36.6 C) (Temporal) Ht 1.727 m (5' 8 ) Wt 92.1 kg (203 lb) BMI 30.87 kg/m Pain Recent Labs No results found for: CRP No results found for: SEDRATE Lab Results Component Value Date WBC 4.5 11/24/2018 HGB 11.5 (L) 11/24/2018 HCT 33.5 (L) 11/24/2018 PLATELET 191 11/24/2018 MCV 101.1 (H) 11/24/2018 History Past Medical History: Diagnosis Date Pneumonia 2010 History of blood transfusion 2012 bleeding ulcer; pt states had a reaction but does not remember what occured Active advance directive Living Will and Health Care POA Anemia Fe deficiency 30 years ago Anesthesia complication prolonged sedation, freezing cold Ankle swelling bilateral Arthritis Back pain Blood transfusion reaction pt unsure of reaction type Connective tissue disease non-specific Depression Easy bruising History of recent steroid use back injections Insomnia Joint pain Leg pain sciatica radiating to right posterior leg to knee Muscle weakness arms and legs; uses cane or walker for ambulation 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 No current use of beta heidi Numbness feet Osteoarthritis Poor tolerance for activity less than 4 mets due to neuropathy, arthritis, chronic back pain Preoperative clearance Dr Batres 11/15/18 RSD (reflex sympathetic dystrophy) Swelling of multiple joints L knee and right hip Ulcer gastric Use of cane as ambulatory aid Wears glasses Past Surgical History: Procedure Laterality Date REVISION ARTHROPLASTY KNEE Left 11/21/2018 Laterality: Left; Surgeon: New Mcclure MD; Location: [facility] OR EXTRACTION EXTRACAPSULAR CATARACT W/ IMPLANT (ECCE IOL) Bilateral 2017 [facility] TREATMENT OPEN PATELLAR FX W/ INTERNAL FIXATION OR PATELLECTOMY Left 07/18/2017 Laterality: Left; Surgeon: New Mcclure MD; Location: [facility] OR PATELLECTOMY/HEMIPATELLECTOMY Left 07/18/2017 Laterality: Left; Surgeon: New Mcclure MD; Location: [facility] OR EXCISION SKIN LESION 07/2016 ARTHROPLASTY KNEE TOTAL Left 2015 OTHER SURGICAL 2012 back fusion l2,3,4,5 KNEE ARTHROSCOPY Right 2007 HYSTERECTOMY 2006 [facility] DIAGNOSTIC/THERAPEUTIC NONOBSTETRICAL 2005 x2 OTHER SURGICAL 11/1998 eye lid celanzion EXCISION GANGLION CYST WRIST Right 1982 EXCISION GANGLION CYST Left EXCISION SKIN LESION sebaceous cyst off back HIP REPLACEMENT Right 2017 OTHER SURGICAL plantar wart removed OTHER SURGICAL cyst off top of head OTHER SURGICAL uterine ablation OTHER SURGICAL joint replacement TONSILLECTOMY Family History: Her family history includes Bleeding or Clotting Problems in her mother; Cancer in her father and sister; Diabetes in her sister; Heart Disease - Other in her mother; Hypertension in her mother. Social History: Her reports that she has never smoked. She has never used smokeless tobacco. She reports that she does not drink alcohol or use drugs. Outpatient Medications Prior to Visit Medication Sig Dispense Refill acetaminophen 325 MG tablet Take 2 tablets by mouth every 4 hours as needed for Mild Pain. 50 tablet 1 ALPHA LIPOIC ACID PO take 200 mg by mouth 3 times daily.. apixaban 2.5 MG Tab tablet Take 1 tablet by mouth every 12 hours. This medication is for blood clotprevention 70 tablet 0 ascorbic acid 500 MG Tab Take 500 mg by mouth daily. baclofen 10 MG Tab Take 20 mg by mouth 3 times daily as needed. Biotin 57383 MCG Tab take 2 tablets by mouth 2 times daily.. Calcium Carb-Cholecalciferol (CALCIUM 600 + D) 600-200 MG-UNIT Tab tablet Take 2.5 tablets by mouthDaily (with lunch). clonazePAM 0.5 MG Tab tablet TAKE 1/2 TO 1 TABLET BY MOUTH AT BEDTIME NEEDED 1 docusate 100 MG Cap capsule Take 1 capsule by mouth 2 times daily. 60 capsule 0 folic acid 1 MG Tab tablet Take 1 mg by mouth daily. Glucosamine-Chondroitin (GLUCOSAMINE CHONDR COMPLEX PO) take 1 tablet by mouth daily.. ibandronate 150 MG Tab take 150 mg by mouth every 30 days.. Multiple Vitamins-Minerals (MULTIVITAMIN ADULT PO) take 1 tablet by mouth at bedtime.. pantoprazole [address] take 40 mg by mouth every evening at 6 PM.. Psyllium (METAMUCIL FIBER PO) take 1 Dose by mouth every evening.. triamterene-hydrochlorothiazide 37.5-25 MG Cap take 1 capsule by mouth as needed (edema).. zonisamide 100 MG Cap take 100 mg by mouth at bedtime.. oxyCODONE 5 MG Tab tablet Take 1-2 tabs po q 4-6 hours PRN pain. 60 tablet 0 No facility-administered medications prior to visit. Current Outpatient Prescriptions: acetaminophen 325 MG tablet, Take 2 tablets by mouth every 4 hours as needed for Mild Pain., Disp: 50 tablet, Rfl: 1 ALPHA LIPOIC ACID PO, take 200 mg by mouth 3 times daily.., Disp: , Rfl: apixaban 2.5 MG Tab tablet, Take 1 tablet by mouth every 12 hours. This medication is for blood clot prevention, Disp: 70 tablet, Rfl: 0 ascorbic acid 500 MG Tab, Take 500 mg by mouth daily., Disp: , Rfl: baclofen 10 MG Tab, Take 20 mg by mouth 3 times daily as needed. , Disp: , Rfl: Biotin 02074 MCG Tab, take 2 tablets by mouth 2 times daily.. , Disp: , Rfl: Calcium Carb-Cholecalciferol (CALCIUM 600 + D) 600-200 MG-UNIT Tab tablet, Take 2.5 tablets by mouth Daily (with lunch). , Disp: , Rfl: clonazePAM 0.5 MG Tab tablet, TAKE 1/2 TO 1 TABLET BY MOUTH AT BEDTIME NEEDED, Disp: , Rfl: 1 docusate 100 MG Cap capsule, Take 1 capsule by mouth 2 times daily., Disp: 60 capsule, Rfl: 0 folic acid 1 MG Tab tablet, Take 1 mg by mouth daily., Disp: , Rfl: Glucosamine-Chondroitin (GLUCOSAMINE CHONDR COMPLEX PO), take 1 tablet by mouth daily.., Disp: , Rfl: ibandronate 150 MG Tab, take 150 mg by mouth every 30 days.., Disp: , Rfl: lisinopril 10 MG Tab tablet, Take 10 mg by mouth daily., Disp: , Rfl: Multiple Vitamins-Minerals (MULTIVITAMIN ADULT PO), take 1 tablet by mouth at bedtime.., Disp: , Rfl: pantoprazole [address], take 40 mg by mouth every evening at 6 PM.., Disp: , Rfl: Psyllium (METAMUCIL FIBER PO), take 1 Dose by mouth every evening.. , Disp: , Rfl: triamterene-hydrochlorothiazide 37.5-25 MG Cap, take 1 capsule by mouth as needed (edema).., Disp: , Rfl: zonisamide 100 MG Cap, take 100 mg by mouth at bedtime.., Disp: , Rfl: oxyCODONE 5 MG Tab tablet, Take 1-2 tabs po q 4-6 hours PRN pain., Disp: 60 tablet, Rfl: 0 Allergies: She is allergic to gralise [gabapentin (once-daily)]; alendronate; gabapentin; and oxcarbazepine. in this encounter* New Mcclure MD - 03/01/2019 2:00 PM EDT Dictation on: 03/01/2019 3:23 PM by: NEW MCCLURE [[id number]] I have reviewed the findings of the clinical integrated logistics support manager and agree with their assessment. New Mcclure MD Ortho Nurse Established Patient Intake Room#: 3 Date: 03/01/2019 2:16 PM Patient: Danyelle Haskins MR#: [id number] : 1955 Age: 63 y.o. 6wk F/U L Ext mechanism repair (2 view L knee). Pt has T ROM in place and is full WBAT and using walker for assistive device. She state she has very little pain in L knee. She does state however since approximately December of this year she has had a lot Of pain in her R groin area, it can go up to an 8/10 with activity. She had a R WILFRED 12/2016. She is worried being NWB for so long after her knee Surgery they she may have hurt it. Referring Physician: New Mcclure MD Insurance: Payor: MEDICARE / Plan: MEDICARE A AND B / Product Type: *No Product type* / Chief Complaint Patient presents with Left Knee - Follow-up, Post Op Visit Visit Vitals Temp 97.4 F (36.3 C) (Temporal) Ht 1.727 m (5' 8 ) Wt 94.3 kg (208 lb) BMI 31.63 kg/m Pain Recent Labs No results found for: CRP No results found for: SEDRATE Lab Results Component Value Date WBC 4.5 11/24/2018 HGB 11.5 (L) 11/24/2018 HCT 33.5 (L) 11/24/2018 PLATELET 191 11/24/2018 MCV 101.1 (H) 11/24/2018 History Past Medical History: Diagnosis Date Pneumonia 2010 History of blood transfusion 2013 bleeding ulcer; pt states had a reaction but does not remember what occured Active advance directive Living Will and Health Care POA Anemia Fe deficiency 30 years ago Anesthesia complication prolonged sedation, freezing cold Ankle swelling bilateral Arthritis Back pain Blood transfusion reaction pt unsure of reaction type Connective tissue disease non-specific Depression Easy bruising History of recent steroid use back injections Insomnia Joint pain Leg pain sciatica radiating to right posterior leg to knee Muscle weakness arms and legs; uses cane or walker for ambulation 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 No current use of beta heidi Numbness feet Osteoarthritis Poor tolerance for activity less than 4 mets due to neuropathy, arthritis, chronic back pain Preoperative clearance Dr Batres 11/15/18 RSD (reflex sympathetic dystrophy) Swelling of multiple joints L knee and right hip Ulcer gastric Use of cane as ambulatory aid Wears glasses Past Surgical History: Procedure Laterality Date REVISION ARTHROPLASTY KNEE Left 11/21/2018 Laterality: Left; Surgeon: New Mcclure MD; Location: [facility] OR EXTRACTION EXTRACAPSULAR CATARACT W/ IMPLANT (ECCE IOL) Bilateral 2017 [facility] TREATMENT OPEN PATELLAR FX W/ INTERNAL FIXATION OR PATELLECTOMY Left 07/18/2017 Laterality: Left; Surgeon: New Mcclure MD; Location: [facility] PATELLECTOMY/HEMIPATELLECTOMY Left 07/18/2017 Laterality: Left; Surgeon: New Mcclure MD; Location: [facility] EXCISION SKIN LESION 07/2016 ARTHROPLASTY KNEE TOTAL Left 2014 OTHER SURGICAL 2011 back fusion l2,3,4,5 KNEE ARTHROSCOPY Right 2007 HYSTERECTOMY 2006 [facility] DIAGNOSTIC/THERAPEUTIC NONOBSTETRICAL 2005 x2 OTHER SURGICAL 11/1998 eye lid celanzion EXCISION GANGLION CYST WRIST Right 1982 EXCISION GANGLION CYST Left EXCISION SKIN LESION sebaceous cyst off back HIP REPLACEMENT Right 2016 OTHER SURGICAL plantar wart removed OTHER SURGICAL cyst off top of head OTHER SURGICAL uterine ablation OTHER SURGICAL joint replacement TONSILLECTOMY Family History: Her family history includes Bleeding or Clotting Problems in her mother; Cancer in her father and sister; Diabetes in her sister; Heart Disease - Other in her mother; Hypertension in her mother. Social History: Her reports that she has never smoked. She has never used smokeless tobacco. She reports that she does not drink alcohol or use drugs. Outpatient Medications Prior to Visit Medication Sig Dispense Refill acetaminophen 325 MG tablet Take 2 tablets by mouth every 4 hours as needed for Mild Pain. 50 tablet 1 ALPHA LIPOIC ACID PO take 200 mg by mouth 3 times daily.. ascorbic acid 500 MG Tab Take 500 mg by mouth daily. baclofen 10 MG Tab Take 20 mg by mouth 3 times daily as needed. Biotin 09029 MCG Tab take 2 tablets by mouth 2 times daily.. Calcium Carb-Cholecalciferol (CALCIUM 600 + D) 600-200 MG-UNIT Tab tablet Take 2.5 tablets by mouthDaily (with lunch). clonazePAM 0.5 MG Tab tablet TAKE 1/2 TO 1 TABLET BY MOUTH AT BEDTIME NEEDED 1 folic acid 1 MG Tab tablet Take 1 mg by mouth daily. Glucosamine-Chondroitin (GLUCOSAMINE CHONDR COMPLEX PO) take 1 tablet by mouth daily.. ibandronate 150 MG Tab take 150 mg by mouth every 30 days.. lisinopril 10 MG Tab tablet Take 10 mg by mouth daily. Multiple Vitamins-Minerals (MULTIVITAMIN ADULT PO) take 1 tablet by mouth at bedtime.. pantoprazole [address] take 40 mg by mouth every evening at 6 PM.. Psyllium (METAMUCIL FIBER PO) take 1 Dose by mouth every evening.. triamterene-hydrochlorothiazide 37.5-25 MG Cap take 1 capsule by mouth as needed (edema).. zonisamide 100 MG Cap take 100 mg by mouth at bedtime.. apixaban 2.5 MG Tab tablet Take 1 tablet by mouth every 12 hours. This medication is for blood clotprevention 70 tablet 0 docusate 100 MG Cap capsule Take 1 capsule by mouth 2 times daily. (Patient not taking: Reported on03/01/2019) 60 capsule 0 oxyCODONE 5 MG Tab tablet Take 1-2 tabs po q 4-6 hours PRN pain. 60 tablet 0 No facility-administered medications prior to visit. Current Outpatient Medications: acetaminophen 325 MG tablet, Take 2 tablets by mouth every 4 hours as needed for Mild Pain., Disp: 50 tablet, Rfl: 1 ALPHA LIPOIC ACID PO, take 200 mg by mouth 3 times daily.., Disp: , Rfl: ascorbic acid 500 MG Tab, Take 500 mg by mouth daily., Disp: , Rfl: baclofen 10 MG Tab, Take 20 mg by mouth 3 times daily as needed. , Disp: , Rfl: Biotin 52420 MCG Tab, take 2 tablets by mouth 2 times daily.. , Disp: , Rfl: Calcium Carb-Cholecalciferol (CALCIUM 600 + D) 600-200 MG-UNIT Tab tablet, Take 2.5 tablets by mouth Daily (with lunch). , Disp: , Rfl: clonazePAM 0.5 MG Tab tablet, TAKE 1/2 TO 1 TABLET BY MOUTH AT BEDTIME NEEDED, Disp: , Rfl: 1 folic acid 1 MG Tab tablet, Take 1 mg by mouth daily., Disp: , Rfl: Glucosamine-Chondroitin (GLUCOSAMINE CHONDR COMPLEX PO), take 1 tablet by mouth daily.., Disp: , Rfl: ibandronate 150 MG Tab, take 150 mg by mouth every 30 days.., Disp: , Rfl: lisinopril 10 MG Tab tablet, Take 10 mg by mouth daily., Disp: , Rfl: Multiple Vitamins-Minerals (MULTIVITAMIN ADULT PO), take 1 tablet by mouth at bedtime.., Disp: , Rfl: pantoprazole [address], take 40 mg by mouth every evening at 6 PM.., Disp: , Rfl: Psyllium (METAMUCIL FIBER PO), take 1 Dose by mouth every evening.. , Disp: , Rfl: triamterene-hydrochlorothiazide 37.5-25 MG Cap, take 1 capsule by mouth as needed (edema).., Disp: , Rfl: zonisamide 100 MG Cap, take 100 mg by mouth at bedtime.., Disp: , Rfl: apixaban 2.5 MG Tab tablet, Take 1 tablet by mouth every 12 hours. This medication is for blood clot prevention, Disp: 70 tablet, Rfl: 0 docusate 100 MG Cap capsule, Take 1 capsule by mouth 2 times daily. (Patient not taking: Reported on 03/01/2019), Disp: 60 capsule, Rfl: 0 oxyCODONE 5 MG Tab tablet, Take 1-2 tabs po q 4-6 hours PRN pain., Disp: 60 tablet, Rfl: 0 Allergies: She is allergic to gralise [gabapentin (once-daily)]; alendronate; gabapentin; and oxcarbazepine. Procedures * Marcie Lantigua LPN - 03/01/2019 2:00 PM EDT Ortho Nurse Established Patient Intake Room#: 3 Date: 03/01/2019 2:16 PM Patient: Danyelle Haskins MR#: [id number] : 1955 Age: 63 y.o. 6wk F/U L Ext mechanism repair (2 view L knee). Pt has T ROM in place and is full WBAT and using walker for assistive device. She state she has very little pain in L knee. She does state however since approximately December of this year she has had a lot Of pain in her R groin area, it can go up to an 8/10 with activity. She had a R WILFRED 12/2016. She is worried being NWB for so long after her knee Surgery they she may have hurt it. Referring Physician: New Mcclure MD Insurance: Payor: MEDICARE / Plan: MEDICARE A AND B / Product Type: *No Product type* / Chief Complaint Patient presents with Left Knee - Follow-up, Post Op Visit Visit Vitals Temp 97.4 F (36.3 C) (Temporal) Ht 1.727 m (5' 8 ) Wt 94.3 kg (208 lb) BMI 31.63 kg/m Pain Recent Labs No results found for: CRP No results found for: SEDRATE Lab Results Component Value Date WBC 4.5 11/24/2018 HGB 11.5 (L) 11/24/2018 HCT 33.5 (L) 11/24/2018 PLATELET 191 11/24/2018 MCV 101.1 (H) 11/24/2018 History Past Medical History: Diagnosis Date Pneumonia 2010 History of blood transfusion 2013 bleeding ulcer; pt states had a reaction but does not remember what occured Active advance directive Living Will and Health Care POA Anemia Fe deficiency 30 years ago Anesthesia complication prolonged sedation, freezing cold Ankle swelling bilateral Arthritis Back pain Blood transfusion reaction pt unsure of reaction type Connective tissue disease non-specific Depression Easy bruising History of recent steroid use back injections Insomnia Joint pain Leg pain sciatica radiating to right posterior leg to knee Muscle weakness arms and legs; uses cane or walker for ambulation 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 No current use of beta heidi Numbness feet Osteoarthritis Poor tolerance for activity less than 4 mets due to neuropathy, arthritis, chronic back pain Preoperative clearance Dr Batres 11/15/18 RSD (reflex sympathetic dystrophy) Swelling of multiple joints L knee and right hip Ulcer gastric Use of cane as ambulatory aid Wears glasses Past Surgical History: Procedure Laterality Date REVISION ARTHROPLASTY KNEE Left 11/21/2018 Laterality: Left; Surgeon: New Mcclure MD; Location: [facility] EXTRACTION EXTRACAPSULAR CATARACT W/ IMPLANT (ECCE IOL) Bilateral 2017 [facility] TREATMENT OPEN PATELLAR FX W/ INTERNAL FIXATION OR PATELLECTOMY Left 07/18/2017 Laterality: Left; Surgeon: New Mcclure MD; Location: [facility] PATELLECTOMY/HEMIPATELLECTOMY Left 07/18/2017 Laterality: Left; Surgeon: New Mcclure MD; Location: [facility] OR EXCISION SKIN LESION 07/2016 ARTHROPLASTY KNEE TOTAL Left 2014 OTHER SURGICAL 2011 back fusion l2,3,4,5 KNEE ARTHROSCOPY Right 2007 HYSTERECTOMY 2006 [facility] DIAGNOSTIC/THERAPEUTIC NONOBSTETRICAL 2005 x2 OTHER SURGICAL 11/1998 eye lid celanzion EXCISION GANGLION CYST WRIST Right 1982 EXCISION GANGLION CYST Left EXCISION SKIN LESION sebaceous cyst off back HIP REPLACEMENT Right 2016 OTHER SURGICAL plantar wart removed OTHER SURGICAL cyst off top of head OTHER SURGICAL uterine ablation OTHER SURGICAL joint replacement TONSILLECTOMY Family History: Her family history includes Bleeding or Clotting Problems in her mother; Cancer in her father and sister; Diabetes in her sister; Heart Disease - Other in her mother; Hypertension in her mother. Social History: Her reports that she has never smoked. She has never used smokeless tobacco. She reports that she does not drink alcohol or use drugs. Outpatient Medications Prior to Visit Medication Sig Dispense Refill acetaminophen 325 MG tablet Take 2 tablets by mouth every 4 hours as needed for Mild Pain. 50 tablet 1 ALPHA LIPOIC ACID PO take 200 mg by mouth 3 times daily.. ascorbic acid 500 MG Tab Take 500 mg by mouth daily. baclofen 10 MG Tab Take 20 mg by mouth 3 times daily as needed. Biotin 99130 MCG Tab take 2 tablets by mouth 2 times daily.. Calcium Carb-Cholecalciferol (CALCIUM 600 + D) 600-200 MG-UNIT Tab tablet Take 2.5 tablets by mouthDaily (with lunch). clonazePAM 0.5 MG Tab tablet TAKE 1/2 TO 1 TABLET BY MOUTH AT BEDTIME NEEDED 1 folic acid 1 MG Tab tablet Take 1 mg by mouth daily. Glucosamine-Chondroitin (GLUCOSAMINE CHONDR COMPLEX PO) take 1 tablet by mouth daily.. ibandronate 150 MG Tab take 150 mg by mouth every 30 days.. lisinopril 10 MG Tab tablet Take 10 mg by mouth daily. Multiple Vitamins-Minerals (MULTIVITAMIN ADULT PO) take 1 tablet by mouth at bedtime.. pantoprazole [address] take 40 mg by mouth every evening at 6 PM.. Psyllium (METAMUCIL FIBER PO) take 1 Dose by mouth every evening.. triamterene-hydrochlorothiazide 37.5-25 MG Cap take 1 capsule by mouth as needed (edema).. zonisamide 100 MG Cap take 100 mg by mouth at bedtime.. apixaban 2.5 MG Tab tablet Take 1 tablet by mouth every 12 hours. This medication is for blood clotprevention 70 tablet 0 docusate 100 MG Cap capsule Take 1 capsule by mouth 2 times daily. (Patient not taking: Reported on03/01/2019) 60 capsule 0 oxyCODONE 5 MG Tab tablet Take 1-2 tabs po q 4-6 hours PRN pain. 60 tablet 0 No facility-administered medications prior to visit. Current Outpatient Medications: acetaminophen 325 MG tablet, Take 2 tablets by mouth every 4 hours as needed for Mild Pain., Disp: 50 tablet, Rfl: 1 ALPHA LIPOIC ACID PO, take 200 mg by mouth 3 times daily.., Disp: , Rfl: ascorbic acid 500 MG Tab, Take 500 mg by mouth daily., Disp: , Rfl: baclofen 10 MG Tab, Take 20 mg by mouth 3 times daily as needed. , Disp: , Rfl: Biotin 78582 MCG Tab, take 2 tablets by mouth 2 times daily.. , Disp: , Rfl: Calcium Carb-Cholecalciferol (CALCIUM 600 + D) 600-200 MG-UNIT Tab tablet, Take 2.5 tablets by mouth Daily (with lunch). , Disp: , Rfl: clonazePAM 0.5 MG Tab tablet, TAKE 1/2 TO 1 TABLET BY MOUTH AT BEDTIME NEEDED, Disp: , Rfl: 1 folic acid 1 MG Tab tablet, Take 1 mg by mouth daily., Disp: , Rfl: Glucosamine-Chondroitin (GLUCOSAMINE CHONDR COMPLEX PO), take 1 tablet by mouth daily.., Disp: , Rfl: ibandronate 150 MG Tab, take 150 mg by mouth every 30 days.., Disp: , Rfl: lisinopril 10 MG Tab tablet, Take 10 mg by mouth daily., Disp: , Rfl: Multiple Vitamins-Minerals (MULTIVITAMIN ADULT PO), take 1 tablet by mouth at bedtime.., Disp: , Rfl: pantoprazole [address], take 40 mg by mouth every evening at 6 PM.., Disp: , Rfl: Psyllium (METAMUCIL FIBER PO), take 1 Dose by mouth every evening.. , Disp: , Rfl: triamterene-hydrochlorothiazide 37.5-25 MG Cap, take 1 capsule by mouth as needed (edema).., Disp: , Rfl: zonisamide 100 MG Cap, take 100 mg by mouth at bedtime.., Disp: , Rfl: apixaban 2.5 MG Tab tablet, Take 1 tablet by mouth every 12 hours. This medication is for blood clot prevention, Disp: 70 tablet, Rfl: 0 docusate 100 MG Cap capsule, Take 1 capsule by mouth 2 times daily. (Patient not taking: Reported on 03/01/2019), Disp: 60 capsule, Rfl: 0 oxyCODONE 5 MG Tab tablet, Take 1-2 tabs po q 4-6 hours PRN pain., Disp: 60 tablet, Rfl: 0 Allergies: She is allergic to gralise [gabapentin (once-daily)]; alendronate; gabapentin; and oxcarbazepine. documented in this encounter* New Mcclure MD - 04/18/2019 4:00 PM EDT Associated Order(s): LARGE JOINT INJECTION: R knee Post-Procedure Diagnose(s): Right knee pain, unspecified chronicity Dictation on: 04/18/2019 4:59 PM by: NEW MCCLURE [[email or web address]] I have reviewed the findings of the clinical integrated logistics support manager and agree with their assessment. New Mcclure MD Ortho Nurse Established Patient Intake Room#: 4 F/U Right hip, feeling better, pain of 5-6 when doing steps, done with PT; Left TKA 11-21-, last PT was yesterday, pain of 1-2 Date: 04/18/2019 4:31 PM Patient: Danyelle Haskins MR#: [id number] : 1955 Age: 63 y.o. Referring Physician: New Mcclure MD Insurance: Payor: MEDICARE / Plan: MEDICARE A AND B / Product Type: *No Product type* / Chief Complaint Patient presents with Left Knee - Follow-up Right Hip - Follow-up Visit Vitals Temp 97.6 F (36.4 C) (Temporal) Ht 1.727 m (5' 8 ) Wt 92.5 kg (204 lb) BMI 31.02 kg/m Pain Presence of Pain: complains of pain/discomfort (04/18/191628) Pain Location: knee, left;hip, right (04/18/191628) Select Pain Scale: DVPRS (Defense and Veterans Pain Rating Scale) (Adult- Cognitively Intact) (04/18/191628) Pain Location: knee, left;hip, right (04/18/191628) Select Pain Scale: DVPRS (Defense and Veterans Pain Rating Scale) (Adult- Cognitively Intact) (04/18/191628) Recent Labs No results found for: CRP No results found for: SEDRATE Lab Results Component Value Date WBC 4.5 11/24/2018 HGB 11.5 (L) 11/24/2018 HCT 33.5 (L) 11/24/2018 PLATELET 191 11/24/2018 MCV 101.1 (H) 11/24/2018 History Past Medical History: Diagnosis Date Pneumonia 2010 History of blood transfusion 2013 bleeding ulcer; pt states had a reaction but does not remember what occured Active advance directive Living Will and Health Care POA Anemia Fe deficiency 30 years ago Anesthesia complication prolonged sedation, freezing cold Ankle swelling bilateral Arthritis Back pain Blood transfusion reaction pt unsure of reaction type Connective tissue disease non-specific Depression Easy bruising History of recent steroid use back injections Insomnia Joint pain Leg pain sciatica radiating to right posterior leg to knee Muscle weakness arms and legs; uses cane or walker for ambulation 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 No current use of beta heidi Numbness feet Osteoarthritis Poor tolerance for activity less than 4 mets due to neuropathy, arthritis, chronic back pain Preoperative clearance Dr Batres 11/15/18 RSD (reflex sympathetic dystrophy) Swelling of multiple joints L knee and right hip Ulcer gastric Use of cane as ambulatory aid Wears glasses Past Surgical History: Procedure Laterality Date REVISION ARTHROPLASTY KNEE Left 11/21/2018 Laterality: Left; Surgeon: New Mcclure MD; Location: [facility] EXTRACTION EXTRACAPSULAR CATARACT W/ IMPLANT (ECCE IOL) Bilateral 2017 [facility] TREATMENT OPEN PATELLAR FX W/ INTERNAL FIXATION OR PATELLECTOMY Left 07/18/2017 Laterality: Left; Surgeon: New Mcclure MD; Location: [facility] PATELLECTOMY/HEMIPATELLECTOMY Left 07/18/2017 Laterality: Left; Surgeon: New Mcclure MD; Location: [facility] OR EXCISION SKIN LESION 07/2016 ARTHROPLASTY KNEE TOTAL Left 2014 OTHER SURGICAL 2011 back fusion l2,3,4,5 KNEE ARTHROSCOPY Right 2007 HYSTERECTOMY 2006 [facility]&C DIAGNOSTIC/THERAPEUTIC NONOBSTETRICAL 2005 x2 OTHER SURGICAL 11/1998 eye lid celanzion EXCISION GANGLION CYST WRIST Right 1982 EXCISION GANGLION CYST Left EXCISION SKIN LESION sebaceous cyst off back HIP REPLACEMENT Right 2017 OTHER SURGICAL plantar wart removed OTHER SURGICAL cyst off top of head OTHER SURGICAL uterine ablation OTHER SURGICAL joint replacement TONSILLECTOMY Family History: Her family history includes Bleeding or Clotting Problems in her mother; Cancer in her father and sister; Diabetes in her sister; Heart Disease - Other in her mother; Hypertension in her mother. Social History: Her reports that she has never smoked. She has never used smokeless tobacco. She reports that she does not drink alcohol or use drugs. Outpatient Medications Prior to Visit Medication Sig Dispense Refill acetaminophen 325 MG tablet Take 2 tablets by mouth every 4 hours as needed for Mild Pain. 50 tablet 1 ALPHA LIPOIC ACID PO take 200 mg by mouth 3 times daily.. amoxicillin 500 MG Cap capsule Take 4 capsules 1 hour before procedure 8 capsule 1 apixaban 2.5 MG Tab tablet Take 1 tablet by mouth every 12 hours. This medication is for blood clotprevention 70 tablet 0 ascorbic acid 500 MG Tab Take 500 mg by mouth daily. baclofen 10 MG Tab Take 20 mg by mouth 3 times daily as needed. Biotin 91826 MCG Tab take 2 tablets by mouth 2 times daily.. Calcium Carb-Cholecalciferol (CALCIUM 600 + D) 600-200 MG-UNIT Tab tablet Take 2.5 tablets by mouthDaily (with lunch). clonazePAM 0.5 MG Tab tablet TAKE 1/2 TO 1 TABLET BY MOUTH AT BEDTIME NEEDED 1 dexamethasone 4 MG/ML Solution injection 1 mL by Other route As directed for 18 doses. (1 cc 3 x a week at physical therapy via iontophoresis) for up to 18 doses. (Patient not taking: Reported on 04/18/2019) 30 mL 0 docusate 100 MG Cap capsule Take 1 capsule by mouth 2 times daily. (Patient not taking: Reported on03/01/2019) 60 capsule 0 folic acid 1 MG Tab tablet Take 1 mg by mouth daily. Glucosamine-Chondroitin (GLUCOSAMINE CHONDR COMPLEX PO) take 1 tablet by mouth daily.. ibandronate 150 MG Tab take 150 mg by mouth every 30 days.. lisinopril 10 MG Tab tablet Take 10 mg by mouth daily. Multiple Vitamins-Minerals (MULTIVITAMIN ADULT PO) take 1 tablet by mouth at bedtime.. oxyCODONE 5 MG Tab tablet Take 1-2 tabs po q 4-6 hours PRN pain. 60 tablet 0 pantoprazole [address] take 40 mg by mouth every evening at 6 PM.. Psyllium (METAMUCIL FIBER PO) take 1 Dose by mouth every evening.. triamterene-hydrochlorothiazide 37.5-25 MG Cap take 1 capsule by mouth as needed (edema).. zonisamide 100 MG Cap take 100 mg by mouth at bedtime.. No facility-administered medications prior to visit. Current Outpatient Medications: acetaminophen 325 MG tablet, Take 2 tablets by mouth every 4 hours as needed for Mild Pain., Disp: 50 tablet, Rfl: 1 ALPHA LIPOIC ACID PO, take 200 mg by mouth 3 times daily.., Disp: , Rfl: amoxicillin 500 MG Cap capsule, Take 4 capsules 1 hour before procedure, Disp: 8 capsule, Rfl: 1 apixaban 2.5 MG Tab tablet, Take 1 tablet by mouth every 12 hours. This medication is for blood clot prevention, Disp: 70 tablet, Rfl: 0 ascorbic acid 500 MG Tab, Take 500 mg by mouth daily., Disp: , Rfl: baclofen 10 MG Tab, Take 20 mg by mouth 3 times daily as needed. , Disp: , Rfl: Biotin 07052 MCG Tab, take 2 tablets by mouth 2 times daily.. , Disp: , Rfl: Calcium Carb-Cholecalciferol (CALCIUM 600 + D) 600-200 MG-UNIT Tab tablet, Take 2.5 tablets by mouth Daily (with lunch). , Disp: , Rfl: clonazePAM 0.5 MG Tab tablet, TAKE 1/2 TO 1 TABLET BY MOUTH AT BEDTIME NEEDED, Disp: , Rfl: 1 dexamethasone 4 MG/ML Solution injection, 1 mL by Other route As directed for 18 doses. (1 cc 3 x aweek at physical therapy via iontophoresis) for up to 18 doses. (Patient not taking: Reported on 04/18/2019), Disp: 30 mL, Rfl: 0 docusate 100 MG Cap capsule, Take 1 capsule by mouth 2 times daily. (Patient not taking: Reported on 03/01/2019), Disp: 60 capsule, Rfl: 0 folic acid 1 MG Tab tablet, Take 1 mg by mouth daily., Disp: , Rfl: Glucosamine-Chondroitin (GLUCOSAMINE CHONDR COMPLEX PO), take 1 tablet by mouth daily.., Disp: , Rfl: ibandronate 150 MG Tab, take 150 mg by mouth every 30 days.., Disp: , Rfl: lisinopril 10 MG Tab tablet, Take 10 mg by mouth daily., Disp: , Rfl: Multiple Vitamins-Minerals (MULTIVITAMIN ADULT PO), take 1 tablet by mouth at bedtime.., Disp: , Rfl: oxyCODONE 5 MG Tab tablet, Take 1-2 tabs po q 4-6 hours PRN pain., Disp: 60 tablet, Rfl: 0 pantoprazole [address], take 40 mg by mouth every evening at 6 PM.., Disp: , Rfl: Psyllium (METAMUCIL FIBER PO), take 1 Dose by mouth every evening.. , Disp: , Rfl: triamterene-hydrochlorothiazide 37.5-25 MG Cap, take 1 capsule by mouth as needed (edema).., Disp: , Rfl: zonisamide 100 MG Cap, take 100 mg by mouth at bedtime.., Disp: , Rfl: Allergies: She is allergic to gralise [gabapentin (once-daily)]; alendronate; gabapentin; and oxcarbazepine. LARGE JOINT INJECTION: R knee Date/Time: 04/18/2019 4:59 PM Supporting Documentation Indications: pain Procedure Details Location: knee - R knee Local Anesthetic Used: mL of ethyl chloride (cold spray) Medication Verification: I have personally verified and performed the final check of the medication(s) used in this procedure prior to administration. The following items were included during the verification process for medication(s) administered: drug name, strength, volume, expiration, physical integrity and appearance of the medication(s). Preparation: with Betadine. * Noel Kumar LPN - 04/18/2019 4:00 PM EDT Ortho Nurse Established Patient Intake Room#: 4 F/U Right hip, feeling better, pain of 5-6 when doing steps, done with PT; Left TKA 11-21-18, last PT was yesterday, pain of 1-2 Date: 04/18/2019 4:31 PM Patient: Danyelle Haskins MR#: [id number] : 1955 Age: 63 y.o. Referring Physician: New Mcclure MD Insurance: Payor: MEDICARE / Plan: MEDICARE A AND B / Product Type: *No Product type* / Chief Complaint Patient presents with Left Knee - Follow-up Right Hip - Follow-up Visit Vitals Temp 97.6 F (36.4 C) (Temporal) Ht 1.727 m (5' 8 ) Wt 92.5 kg (204 lb) BMI 31.02 kg/m Pain Presence of Pain: complains of pain/discomfort (04/18/191628) Pain Location: knee, left;hip, right (04/18/191628) Select Pain Scale: DVPRS (Defense and Veterans Pain Rating Scale) (Adult- Cognitively Intact) (04/18/191628) Pain Location: knee, left;hip, right (04/18/191628) Select Pain Scale: DVPRS (Defense and Veterans Pain Rating Scale) (Adult- Cognitively Intact) (04/18/191628) Recent Labs No results found for: CRP No results found for: SEDRATE Lab Results Component Value Date WBC 4.5 11/24/2018 HGB 11.5 (L) 11/24/2018 HCT 33.5 (L) 11/24/2018 PLATELET 191 11/24/2018 MCV 101.1 (H) 11/24/2018 History Past Medical History: Diagnosis Date Pneumonia 2010 History of blood transfusion 2013 bleeding ulcer; pt states had a reaction but does not remember what occured Active advance directive Living Will and Health Care POA Anemia Fe deficiency 30 years ago Anesthesia complication prolonged sedation, freezing cold Ankle swelling bilateral Arthritis Back pain Blood transfusion reaction pt unsure of reaction type Connective tissue disease non-specific Depression Easy bruising History of recent steroid use back injections Insomnia Joint pain Leg pain sciatica radiating to right posterior leg to knee Muscle weakness arms and legs; uses cane or walker for ambulation 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 No current use of beta heidi Numbness feet Osteoarthritis Poor tolerance for activity less than 4 mets due to neuropathy, arthritis, chronic back pain Preoperative clearance Dr Batres 11/15/18 RSD (reflex sympathetic dystrophy) Swelling of multiple joints L knee and right hip Ulcer gastric Use of cane as ambulatory aid Wears glasses Past Surgical History: Procedure Laterality Date REVISION ARTHROPLASTY KNEE Left 11/21/2018 Laterality: Left; Surgeon: New Mcclure MD; Location: [facility] EXTRACTION EXTRACAPSULAR CATARACT W/ IMPLANT (ECCE IOL) Bilateral 2017 [facility] TREATMENT OPEN PATELLAR FX W/ INTERNAL FIXATION OR PATELLECTOMY Left 07/18/2017 Laterality: Left; Surgeon: New Mcclure MD; Location: [facility] PATELLECTOMY/HEMIPATELLECTOMY Left 07/18/2017 Laterality: Left; Surgeon: New Mcclure MD; Location: [facility] OR EXCISION SKIN LESION 07/2016 ARTHROPLASTY KNEE TOTAL Left 2014 OTHER SURGICAL 2011 back fusion l2,3,4,5 KNEE ARTHROSCOPY Right 2007 HYSTERECTOMY 2006 [facility]&C DIAGNOSTIC/THERAPEUTIC NONOBSTETRICAL 2005 x2 OTHER SURGICAL 11/1998 eye lid celanzion EXCISION GANGLION CYST WRIST Right 1982 EXCISION GANGLION CYST Left EXCISION SKIN LESION sebaceous cyst off back HIP REPLACEMENT Right 2016 OTHER SURGICAL plantar wart removed OTHER SURGICAL cyst off top of head OTHER SURGICAL uterine ablation OTHER SURGICAL joint replacement TONSILLECTOMY Family History: Her family history includes Bleeding or Clotting Problems in her mother; Cancer in her father and sister; Diabetes in her sister; Heart Disease - Other in her mother; Hypertension in her mother. Social History: Her reports that she has never smoked. She has never used smokeless tobacco. She reports that she does not drink alcohol or use drugs. Outpatient Medications Prior to Visit Medication Sig Dispense Refill acetaminophen 325 MG tablet Take 2 tablets by mouth every 4 hours as needed for Mild Pain. 50 tablet 1 ALPHA LIPOIC ACID PO take 200 mg by mouth 3 times daily.. amoxicillin 500 MG Cap capsule Take 4 capsules 1 hour before procedure 8 capsule 1 apixaban 2.5 MG Tab tablet Take 1 tablet by mouth every 12 hours. This medication is for blood clotprevention 70 tablet 0 ascorbic acid 500 MG Tab Take 500 mg by mouth daily. baclofen 10 MG Tab Take 20 mg by mouth 3 times daily as needed. Biotin 88459 MCG Tab take 2 tablets by mouth 2 times daily.. Calcium Carb-Cholecalciferol (CALCIUM 600 + D) 600-200 MG-UNIT Tab tablet Take 2.5 tablets by mouthDaily (with lunch). clonazePAM 0.5 MG Tab tablet TAKE 1/2 TO 1 TABLET BY MOUTH AT BEDTIME NEEDED 1 dexamethasone 4 MG/ML Solution injection 1 mL by Other route As directed for 18 doses. (1 cc 3 x a week at physical therapy via iontophoresis) for up to 18 doses. (Patient not taking: Reported on 04/18/2019) 30 mL 0 docusate 100 MG Cap capsule Take 1 capsule by mouth 2 times daily. (Patient not taking: Reported on03/01/2019) 60 capsule 0 folic acid 1 MG Tab tablet Take 1 mg by mouth daily. Glucosamine-Chondroitin (GLUCOSAMINE CHONDR COMPLEX PO) take 1 tablet by mouth daily.. ibandronate 150 MG Tab take 150 mg by mouth every 30 days.. lisinopril 10 MG Tab tablet Take 10 mg by mouth daily. Multiple Vitamins-Minerals (MULTIVITAMIN ADULT PO) take 1 tablet by mouth at bedtime.. oxyCODONE 5 MG Tab tablet Take 1-2 tabs po q 4-6 hours PRN pain. 60 tablet [address] pantopraz[address] take 40 mg by mouth every evening at 6 PM.. Psyllium (METAMUCIL FIBER PO) take 1 Dose by mouth every evening.. triamterene-hydrochlorothiazide 37.5-25 MG Cap take 1 capsule by mouth as needed (edema).. zonisamide 100 MG Cap take 100 mg by mouth at bedtime.. No facility-administered medications prior to visit. Current Outpatient Medications: acetaminophen 325 MG tablet, Take 2 tablets by mouth every 4 hours as needed for Mild Pain., Disp: 50 tablet, Rfl: 1 ALPHA LIPOIC ACID PO, take 200 mg by mouth 3 times daily.., Disp: , Rfl: amoxicillin 500 MG Cap capsule, Take 4 capsules 1 hour before procedure, Disp: 8 capsule, Rfl: 1 apixaban 2.5 MG Tab tablet, Take 1 tablet by mouth every 12 hours. This medication is for blood clot prevention, Disp: 70 tablet, Rfl: 0 ascorbic acid 500 MG Tab, Take 500 mg by mouth daily., Disp: , Rfl: baclofen 10 MG Tab, Take 20 mg by mouth 3 times daily as needed. , Disp: , Rfl: Biotin 77647 MCG Tab, take 2 tablets by mouth 2 times daily.. , Disp: , Rfl: Calcium Carb-Cholecalciferol (CALCIUM 600 + D) 600-200 MG-UNIT Tab tablet, Take 2.5 tablets by mouth Daily (with lunch). , Disp: , Rfl: clonazePAM 0.5 MG Tab tablet, TAKE 1/2 TO 1 TABLET BY MOUTH AT BEDTIME NEEDED, Disp: , Rfl: 1 dexamethasone 4 MG/ML Solution injection, 1 mL by Other route As directed for 18 doses. (1 cc 3 x aweek at physical therapy via iontophoresis) for up to 18 doses. (Patient not taking: Reported on 04/18/2019), Disp: 30 mL, Rfl: 0 docusate 100 MG Cap capsule, Take 1 capsule by mouth 2 times daily. (Patient not taking: Reported on 03/01/2019), Disp: 60 capsule, Rfl: 0 folic acid 1 MG Tab tablet, Take 1 mg by mouth daily., Disp: , Rfl: Glucosamine-Chondroitin (GLUCOSAMINE CHONDR COMPLEX PO), take 1 tablet by mouth daily.., Disp: , Rfl: ibandronate 150 MG Tab, take 150 mg by mouth every 30 days.., Disp: , Rfl: lisinopril 10 MG Tab tablet, Take 10 mg by mouth daily., Disp: , Rfl: Multiple Vitamins-Minerals (MULTIVITAMIN ADULT PO), take 1 tablet by mouth at bedtime.., Disp: , Rfl: oxyCODONE 5 MG Tab tablet, Take 1-2 tabs po q 4-6 hours PRN pain., Disp: 60 tablet, Rfl: [address] pantopraz[address], take 40 mg by mouth every evening at 6 PM.., Disp: , Rfl: Psyllium (METAMUCIL FIBER PO), take 1 Dose by mouth every evening.. , Disp: , Rfl: triamterene-hydrochlorothiazide 37.5-25 MG Cap, take 1 capsule by mouth as needed (edema).., Disp: , Rfl: zonisamide 100 MG Cap, take 100 mg by mouth at bedtime.., Disp: , Rfl: Allergies: She is allergic to gralise [gabapentin (once-daily)]; alendronate; gabapentin; and oxcarbazepine. documented in this encounter* New Mcclure MD - 11/21/2019 1:10 PM EST Associated Order(s): LARGE JOINT INJECTION: R knee Post-Procedure Diagnose(s): Arthritis of right knee SUBJECTIVE: Danyelle is here today for evaluation of her left knee as well as right knee. Her primary complaint is pain in the right knee. She has known arthritis. She has had medications, therapies, injections, and unfortunately, symptoms are worsening. She is interested in arthroplasty but perhaps not, though she is closer towards longterm. She has had previous extensor mechanism reconstruction in the left knee and overall has been feeling pretty well from that. She has full function and occasional intermittent instability. OBJECTIVE: GENERAL: This is an alert, oriented, and age-appropriate female. She is in no distress. Pleasant and cooperative. EXTREMITIES: She has valgus alignment to the right knee. She has anatomical alignment to the left knee with moderate varus and valgus instability. She has well- preserved extension. Full range of motion actively is around 5 to 115. Otherwise, stable to anterior and posterior stress. The extensor patella does have subluxation too that is reproducible. Extensor mechanism is palpably intact. IMAGING STUDIES: Plain film radiographs reviewed. She has previous long-standing films of the right knee, which demonstrate knee, [id number] arthritis of the lateral compartment, and multiple views of the left knee demonstrate a previous total knee arthroplasties in both knees on the medial compartment. Stable position of the extensor mechanism reconstruction and some 30 degrees subluxation of her patella. IMPRESSION: 1. Status post extensor mechanism reconstruction with mesh, left knee. 2. Severe arthritis, right knee. PLAN: I reviewed my findings with Danyelle today. radiographs. The extensor mechanism is functioning quite well in the left knee. I am quite pleased with the result in intervention. She does have some mild instability. She had work with some strengthening and she has a brace at home that she can try to work but to improve that. Furthermore, we talked about arthroplasty of the right knee. She would like to stay conservative now, last injection given a year ago, did work well. We will repeat that today. I will follow up with her in the future should she like to proceed with surgical revision. ([id number]) LARGE JOINT INJECTION: R knee Date/Time: 11/21/2019 2:00 PM Supporting Documentation Indications: pain Procedure Details Location: knee - R knee Local Anesthetic Used: mL of ethyl chloride (cold spray) Needle size: 22 G Medication Verification: I have personally verified and performed the final check of the medication(s) used in this procedure prior to administration. The following items were included during the verification process for medication(s) administered: drug name, strength, volume, expiration, physical integrity and appearance of the medication(s). Medications administered: 5 mL lidocaine 1% (PF) 1 %; 1 mL triamcinolone 40 MG/ML Patient tolerance: patient tolerated the procedure well with no immediate complications Preparation: with Betadine. I have reviewed the findings of the clinical integrated logistics support manager and agree with their assessment. New Mcclure MD Ortho Nurse Established Patient Intake Room#: 3---1 year post-op check for left TKA . She has been doing well. Date: 11/21/2019 1:38 PM Patient: Danyelle Haskins MR#: [id number] : 1955 Age: 64 y.o. Referring Physician: New Mcclure MD Insurance: Payor: MEDICARE / Plan: MEDICARE A AND B / Product Type: *No Product type* / Chief Complaint Patient presents with Left Knee - Post Op Visit Visit Vitals Temp 97 F (36.1 C) (Temporal) Ht 1.727 m (5' 8 ) Wt 99.7 kg (219 lb 12.8 oz) BMI 33.42 kg/m Pain Presence of Pain: complains of pain/discomfort Select Pain Scale: DVPRS (Defense and Veterans Pain Rating Scale) (Adult- Cognitively Intact) Select Pain Scale: DVPRS (Defense and Veterans Pain Rating Scale) (Adult- Cognitively Intact) Recent Labs No results found for: CRP No results found for: SEDRATE Lab Results Component Value Date WBC 4.5 11/24/2018 HGB 11.5 (L) 11/24/2018 HCT 33.5 (L) 11/24/2018 PLATELET 191 11/24/2018 MCV 101.1 (H) 11/24/2018 History Past Medical History: Diagnosis Date Pneumonia 2010 History of blood transfusion 2012 bleeding ulcer; pt states had a reaction but does not remember what occured Active advance directive Living Will and Health Care POA Anemia Fe deficiency 30 years ago Anesthesia complication prolonged sedation, freezing cold Ankle swelling bilateral Arthritis Back pain Blood transfusion reaction pt unsure of reaction type Connective tissue disease non-specific Depression Easy bruising History of recent steroid use back injections Insomnia Joint pain Leg pain sciatica radiating to right posterior leg to knee Muscle weakness arms and legs; uses cane or walker for ambulation 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 No current use of beta heidi Numbness feet Osteoarthritis Poor tolerance for activity less than 4 mets due to neuropathy, arthritis, chronic back pain Preoperative clearance Dr Batres 11/15/18 RSD (reflex sympathetic dystrophy) Swelling of multiple joints L knee and right hip Ulcer gastric Use of cane as ambulatory aid Wears glasses Past Surgical History: Procedure Laterality Date REVISION ARTHROPLASTY KNEE Left 11/21/2018 Laterality: Left; Surgeon: New Mcclure MD; Location: [facility] EXTRACTION EXTRACAPSULAR CATARACT W/ IMPLANT (ECCE IOL) Bilateral 2017 [facility] TREATMENT OPEN PATELLAR FX W/ INTERNAL FIXATION OR PATELLECTOMY Left 07/18/2017 Laterality: Left; Surgeon: New Mcclure MD; Location: [facility] PATELLECTOMY/HEMIPATELLECTOMY Left 07/18/2017 Laterality: Left; Surgeon: New Mcclure MD; Location: [facility] EXCISION SKIN LESION 07/2016 ARTHROPLASTY KNEE TOTAL Left 2014 OTHER SURGICAL 2011 back fusion l2,3,4,5 KNEE ARTHROSCOPY Right 2007 HYSTERECTOMY 2006 [facility] DIAGNOSTIC/THERAPEUTIC NONOBSTETRICAL 2005 x2 OTHER SURGICAL 11/1998 eye lid celanzion EXCISION GANGLION CYST WRIST Right 1982 EXCISION GANGLION CYST Left EXCISION SKIN LESION sebaceous cyst off back HIP REPLACEMENT Right 2017 OTHER SURGICAL plantar wart removed OTHER SURGICAL cyst off top of head OTHER SURGICAL uterine ablation OTHER SURGICAL joint replacement TONSILLECTOMY Family History: Her family history includes Bleeding or Clotting Problems in her mother; Cancer in her father and sister; Diabetes in her sister; Heart Disease - Other in her mother; Hypertension in her mother. Social History: Her reports that she has never smoked. She has never used smokeless tobacco. She reports that she does not drink alcohol or use drugs. Outpatient Medications Prior to Visit Medication Sig Dispense Refill acetaminophen 325 MG tablet Take 2 tablets by mouth every 4 hours as needed for Mild Pain. 50 tablet 1 ALPHA LIPOIC ACID PO take 200 mg by mouth 3 times daily.. amoxicillin 500 MG Cap capsule Take 4 capsules 1 hour before procedure 8 capsule 1 ascorbic acid 500 MG Tab Take 500 mg by mouth daily. baclofen 10 MG Tab Take 20 mg by mouth 3 times daily as needed. Biotin 25889 MCG Tab take 2 tablets by mouth 2 times daily.. Calcium Carb-Cholecalciferol (CALCIUM 600 + D) 600-200 MG-UNIT Tab tablet Take 2.5 tablets by mouthDaily (with lunch). ferrous sulfate 325 (65 Fe) MG Tab DR tablet Take 325 mg by mouth 2 times daily as needed. folic acid 1 MG Tab tablet Take 1 mg by mouth daily. Glucosamine-Chondroitin (GLUCOSAMINE CHONDR COMPLEX PO) take 1 tablet by mouth daily.. hydroxychloroquine (PLAQUENIL) 200 MG Tab tablet Take 200 mg by mouth 2 times daily. ibandronate 150 MG Tab take 150 mg by mouth every 30 days.. leflunomide 20 MG Tab tablet Take 20 mg by mouth daily. lisinopril 10 MG Tab tablet Take 10 mg by mouth daily. Multiple Vitamins-Minerals (MULTIVITAMIN ADULT PO) take 1 tablet by mouth at bedtime.. pantoprazole [address] take 40 mg by mouth every evening at 6 PM.. Psyllium (METAMUCIL FIBER PO) take 1 Dose by mouth every evening.. traMADol 50 MG Tab tablet Take 50 mg by mouth 2 times daily as needed. triamterene-hydrochlorothiazide 37.5-25 MG Cap take 1 capsule by mouth as needed (edema).. zonisamide 100 MG Cap take 100 mg by mouth at bedtime.. apixaban 2.5 MG Tab tablet Take 1 tablet by mouth every 12 hours. This medication is for blood clotprevention 70 tablet 0 clonazePAM 0.5 MG Tab tablet TAKE 1/2 TO 1 TABLET BY MOUTH AT BEDTIME NEEDED 1 dexamethasone 4 MG/ML Solution injection 1 mL by Other route As directed for 18 doses. (1 cc 3 x a week at physical therapy via iontophoresis) for up to 18 doses. (Patient not taking: Reported on 04/18/2019) 30 mL 0 docusate 100 MG Cap capsule Take 1 capsule by mouth 2 times daily. (Patient not taking: Reported on03/01/2019) 60 capsule 0 oxyCODONE 5 MG Tab tablet Take 1-2 tabs po q 4-6 hours PRN pain. 60 tablet 0 No facility-administered medications prior to visit. Allergies: She is allergic to gralise [gabapentin (once-daily)]; alendronate; gabapentin; and oxcarbazepine. * Gisella Adair LPN - 11/21/2019 1:10 PM EST Ortho Nurse Established Patient Intake Room#: 3---1 year post-op check for left TKA . She has been doing well. Date: 11/21/2019 1:38 PM Patient: Danyelle Haskins MR#: [id number] : 1955 Age: 64 y.o. Referring Physician: New Mcclure MD Insurance: Payor: MEDICARE / Plan: MEDICARE A AND B / Product Type: *No Product type* / Chief Complaint Patient presents with Left Knee - Post Op Visit Visit Vitals Temp 97 F (36.1 C) (Temporal) Ht 1.727 m (5' 8 ) Wt 99.7 kg (219 lb 12.8 oz) BMI 33.42 kg/m Pain Presence of Pain: complains of pain/discomfort Select Pain Scale: DVPRS (Defense and Veterans Pain Rating Scale) (Adult- Cognitively Intact) Select Pain Scale: DVPRS (Defense and Veterans Pain Rating Scale) (Adult- Cognitively Intact) Recent Labs No results found for: CRP No results found for: SEDRATE Lab Results Component Value Date WBC 4.5 11/24/2018 HGB 11.5 (L) 11/24/2018 HCT 33.5 (L) 11/24/2018 PLATELET 191 11/24/2018 MCV 101.1 (H) 11/24/2018 History Past Medical History: Diagnosis Date Pneumonia 2010 History of blood transfusion 2012 bleeding ulcer; pt states had a reaction but does not remember what occured Active advance directive Living Will and Health Care POA Anemia Fe deficiency 30 years ago Anesthesia complication prolonged sedation, freezing cold Ankle swelling bilateral Arthritis Back pain Blood transfusion reaction pt unsure of reaction type Connective tissue disease non-specific Depression Easy bruising History of recent steroid use back injections Insomnia Joint pain Leg pain sciatica radiating to right posterior leg to knee Muscle weakness arms and legs; uses cane or walker for ambulation 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 No current use of beta heidi Numbness feet Osteoarthritis Poor tolerance for activity less than 4 mets due to neuropathy, arthritis, chronic back pain Preoperative clearance Dr Batres 11/15/18 RSD (reflex sympathetic dystrophy) Swelling of multiple joints L knee and right hip Ulcer gastric Use of cane as ambulatory aid Wears glasses Past Surgical History: Procedure Laterality Date REVISION ARTHROPLASTY KNEE Left 11/21/2018 Laterality: Left; Surgeon: New Mcclure MD; Location: [facility] EXTRACTION EXTRACAPSULAR CATARACT W/ IMPLANT (ECCE IOL) Bilateral 2018 [facility] TREATMENT OPEN PATELLAR FX W/ INTERNAL FIXATION OR PATELLECTOMY Left 07/18/2017 Laterality: Left; Surgeon: New Mcclure MD; Location: [facility] PATELLECTOMY/HEMIPATELLECTOMY Left 07/18/2017 Laterality: Left; Surgeon: New Mcclure MD; Location: [facility] OR EXCISION SKIN LESION 07/2016 ARTHROPLASTY KNEE TOTAL Left 2014 OTHER SURGICAL 2011 back fusion l2,3,4,5 KNEE ARTHROSCOPY Right 2007 HYSTERECTOMY 2006 [facility] DIAGNOSTIC/THERAPEUTIC NONOBSTETRICAL 2005 x2 OTHER SURGICAL 11/1998 eye lid celanzion EXCISION GANGLION CYST WRIST Right 1982 EXCISION GANGLION CYST Left EXCISION SKIN LESION sebaceous cyst off back HIP REPLACEMENT Right 2016 OTHER SURGICAL plantar wart removed OTHER SURGICAL cyst off top of head OTHER SURGICAL uterine ablation OTHER SURGICAL joint replacement TONSILLECTOMY Family History: Her family history includes Bleeding or Clotting Problems in her mother; Cancer in her father and sister; Diabetes in her sister; Heart Disease - Other in her mother; Hypertension in her mother. Social History: Her reports that she has never smoked. She has never used smokeless tobacco. She reports that she does not drink alcohol or use drugs. Outpatient Medications Prior to Visit Medication Sig Dispense Refill acetaminophen 325 MG tablet Take 2 tablets by mouth every 4 hours as needed for Mild Pain. 50 tablet 1 ALPHA LIPOIC ACID PO take 200 mg by mouth 3 times daily.. amoxicillin 500 MG Cap capsule Take 4 capsules 1 hour before procedure 8 capsule 1 ascorbic acid 500 MG Tab Take 500 mg by mouth daily. baclofen 10 MG Tab Take 20 mg by mouth 3 times daily as needed. Biotin 03166 MCG Tab take 2 tablets by mouth 2 times daily.. Calcium Carb-Cholecalciferol (CALCIUM 600 + D) 600-200 MG-UNIT Tab tablet Take 2.5 tablets by mouthDaily (with lunch). ferrous sulfate 325 (65 Fe) MG Tab DR tablet Take 325 mg by mouth 2 times daily as needed. folic acid 1 MG Tab tablet Take 1 mg by mouth daily. Glucosamine-Chondroitin (GLUCOSAMINE CHONDR COMPLEX PO) take 1 tablet by mouth daily.. hydroxychloroquine (PLAQUENIL) 200 MG Tab tablet Take 200 mg by mouth 2 times daily. ibandronate 150 MG Tab take 150 mg by mouth every 30 days.. leflunomide 20 MG Tab tablet Take 20 mg by mouth daily. lisinopril 10 MG Tab tablet Take 10 mg by mouth daily. Multiple Vitamins-Minerals (MULTIVITAMIN ADULT PO) take 1 tablet by mouth at bedtime.. pantoprazole [address] take 40 mg by mouth every evening at 6 PM.. Psyllium (METAMUCIL FIBER PO) take 1 Dose by mouth every evening.. traMADol 50 MG Tab tablet Take 50 mg by mouth 2 times daily as needed. triamterene-hydrochlorothiazide 37.5-25 MG Cap take 1 capsule by mouth as needed (edema).. zonisamide 100 MG Cap take 100 mg by mouth at bedtime.. apixaban 2.5 MG Tab tablet Take 1 tablet by mouth every 12 hours. This medication is for blood clotprevention 70 tablet 0 clonazePAM 0.5 MG Tab tablet TAKE 1/2 TO 1 TABLET BY MOUTH AT BEDTIME NEEDED 1 dexamethasone 4 MG/ML Solution injection 1 mL by Other route As directed for 18 doses. (1 cc 3 x a week at physical therapy via iontophoresis) for up to 18 doses. (Patient not taking: Reported on 04/18/2019) 30 mL 0 docusate 100 MG Cap capsule Take 1 capsule by mouth 2 times daily. (Patient not taking: Reported on03/01/2019) 60 capsule 0 oxyCODONE 5 MG Tab tablet Take 1-2 tabs po q 4-6 hours PRN pain. 60 tablet 0 No facility-administered medications prior to visit. Allergies: She is allergic to gralise [gabapentin (once-daily)]; alendronate; gabapentin; and oxcarbazepine. documented in this encounter* New Mcclure MD - 11/19/2020 2:10 PM EST Associated Order(s): LARGE JOINT/BURSA INJECTION AND/OR ASPIRATION: R knee Post-Procedure Diagnose(s): Hx of total knee arthroplasty, left; Pain in prosthetic joint, initial encounter HPI: Danyelle is here today for evaluation of her operative knee. She is status post left total knee arthroplasty with extensor mechanism reconstruction with mesh. She is about a two years out, reports buckling and instability with ambulation. She states she was doing well until her knee buckled in Mar, 2020 and caused her to fall on her knee. She also reports her knee varinder going down steps. Her pain is a 2 on a 10 point scale today. PHYSICAL EXAM: The operative lower extremity is soft, nontender, full and supple motion. No pain, no impingement. No instability. She has full passive extension with some opening to varus and valgus stress with flexion and extension. Active range of motion of 25-115. Palpable defect under patella. The contralateral extremity has full motion, normal stability, no tenderness. Both extremities have normal neurovascular status. DIAGNOSTIC STUDIES/INTERPRETATION: Plain film radiographs reviewed. She has a left total knee arthroplasty in good position and alignment with extensor mechanism reconstruction with some positional changes on lateral view. IMPRESSION: 1.) Stable status post total knee arthroplasty with extensor mechanism reconstruction with mesh. 2.) History of fall due to buckling. 3.) Persistent instability, right knee. 4.) Symptomatic right knee arthritis. PLAN: I reviewed my findings with Danyelle. We discussed the current diagnosis and what treatment options are available. We discussed a revision arthroplasty with a more constrained prosthesis and a repeat reconstruction of the extensor mechanism. She desires to prolong surgical interventions at this time. For today, I will give her a script for physical therapy and a hinged knee brace in attempt toimprove symptoms. She agrees with this and will notify my office should any new symptoms arise. I will see her back upon the completion of her therapy sessions. All questions were answered. She has no further questions. She also desires arthritis management in the form of injections for her left knee. After explanations of the risks, benefits and alternatives and obtaining verbal consent, an injection in the left knee was administered. She tolerated the injection with no complaints. Aftercare instructions were provided with all questions being answered. She has no further questions at this time. Next appointmentwill be left open to her. LARGE JOINT/BURSA INJECTION AND/OR ASPIRATION: R knee Date/Time: 11/19/2020 2:10 PM Supporting Documentation Indications: pain Procedure Details: Location: knee - R knee Local Anesthetic: ethyl chloride (cold spray) Needle size: 22 G Medication Verification: I have personally verified and performed the final check of the medication(s) used in this procedure prior to administration. The following items were included during the verification process for medication(s) administered: drug name, strength, volume, expiration, physical integrity and appearance of the medication(s). Medications administered: 5 mL lidocaine 1% (PF) 1 %; 1 mL triamcinolone 40 MG/ML Patient tolerance: patient tolerated the procedure well with no immediate complications The patient was prepped with Betadine. I have reviewed the findings of the clinical integrated logistics support manager and agree with their assessment. Ortho Nurse Established Patient Intake Room#: 2 2 year Left TKA 11-21-18, pain of 2, cannot straighten her leg and it varinder, Amoxicillin was ordered today Date: 11/19/2020 2:31 PM Patient: Danyelle Haskins MR#: [id number] : 1955 Age: 65 y.o. Referring Physician: Self, Self Insurance: Payor: MEDICARE / Plan: MEDICARE A AND B / Product Type: *No Product type* / Chief Complaint Patient presents with Left Knee - Post Op Visit Visit Vitals Temp 97.1 F (36.2 C) (Temporal) Ht 1.715 m (5' 7.5 ) Wt 100.2 kg (221 lb) BMI 34.10 kg/m Pain Presence of Pain: complains of pain/discomfort Pain Location: knee, left Select Pain Scale: DVPRS (Defense and Veterans Pain Rating Scale) (Adult- Cognitively Intact) Pain Location: knee, left Select Pain Scale: DVPRS (Defense and Veterans Pain Rating Scale) (Adult- Cognitively Intact) Recent Labs No results found for: CRP No results found for: SEDRATE Lab Results Component Value Date WBC 4.5 11/24/2018 HGB 11.5 (L) 11/24/2018 HCT 33.5 (L) 11/24/2018 PLATELET 191 11/24/2018 MCV 101.1 (H) 11/24/2018 History Past Medical History: Diagnosis Date Pneumonia 2010 History of blood transfusion 2012 bleeding ulcer; pt states had a reaction but does not remember what occured Active advance directive Living Will and Health Care POA Anemia Fe deficiency 30 years ago Anesthesia complication prolonged sedation, freezing cold Ankle swelling bilateral Arthritis Back pain Blood transfusion reaction pt unsure of reaction type Connective tissue disease non-specific Depression Easy bruising History of recent steroid use back injections Insomnia Joint pain Leg pain sciatica radiating to right posterior leg to knee Muscle weakness arms and legs; uses cane or walker for ambulation 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 No current use of beta heidi Numbness feet Osteoarthritis Poor tolerance for activity less than 4 mets due to neuropathy, arthritis, chronic back pain Preoperative clearance Dr Batres 11/15/18 RSD (reflex sympathetic dystrophy) Swelling of multiple joints L knee and right hip Ulcer gastric Use of cane as ambulatory aid Wears glasses Past Surgical History: Procedure Laterality Date REVISION ARTHROPLASTY KNEE Left 11/21/2018 Laterality: Left; Surgeon: New Mcclure MD; Location: [facility] EXTRACTION EXTRACAPSULAR CATARACT W/ IMPLANT (ECCE IOL) Bilateral 2017 [facility] TREATMENT OPEN PATELLAR FX W/ INTERNAL FIXATION OR PATELLECTOMY Left 07/18/2017 Laterality: Left; Surgeon: New Mcclure MD; Location: [facility] PATELLECTOMY/HEMIPATELLECTOMY Left 07/18/2017 Laterality: Left; Surgeon: New Mcclure MD; Location: [facility] EXCISION SKIN LESION 07/2016 ARTHROPLASTY KNEE TOTAL Left 2014 OTHER SURGICAL 2011 back fusion l2,3,4,5 KNEE ARTHROSCOPY Right 2007 HYSTERECTOMY 2006 [facility] DIAGNOSTIC/THERAPEUTIC NONOBSTETRICAL 2005 x2 OTHER SURGICAL 11/1998 eye lid celanzion EXCISION GANGLION CYST WRIST Right 1982 EXCISION GANGLION CYST Left EXCISION SKIN LESION sebaceous cyst off back HIP REPLACEMENT Right 2016 OTHER SURGICAL plantar wart removed OTHER SURGICAL cyst off top of head OTHER SURGICAL uterine ablation OTHER SURGICAL joint replacement TONSILLECTOMY Family History: Her family history includes Bleeding or Clotting Problems in her mother; Cancer in her father and sister; Diabetes in her sister; Heart Disease - Other in her mother; Hypertension in her mother. Social History: Her reports that she has never smoked. She has never used smokeless tobacco. She reports that she does not drink alcohol or use drugs. Outpatient Medications Prior to Visit Medication Sig Dispense Refill acetaminophen 325 MG tablet Take 2 tablets by mouth every 4 hours as needed for Mild Pain. 50 tablet 1 ALPHA LIPOIC ACID PO take 200 mg by mouth 3 times daily.. amoxicillin 250 MG capsule Take 500 mg by mouth every 8 hours. 4 capsules 1 hour before procedure ascorbic acid 500 MG Tab Take 500 mg by mouth daily. Biotin 70742 MCG Tab take 2 tablets by mouth 2 times daily.. Calcium Carb-Cholecalciferol (CALCIUM 600 + D) 600-200 MG-UNIT Tab tablet Take 2.5 tablets by mouthDaily (with lunch). Diclofenac Sodium 1 % Gel gel Diclofenac Diclofenac Sodium Active 4 GM Topical Four times daily October 01, 2020 10:38am 10-01-2020 [facility] ([id number]) ferrous sulfate 325 (65 Fe) MG Tab DR tablet Take 325 mg by mouth 2 times daily as needed. folic acid 1 MG Tab tablet Take 1 mg by mouth daily. Glucosamine-Chondroitin (GLUCOSAMINE CHONDR COMPLEX PO) take 1 tablet by mouth daily.. hydroxychloroquine (PLAQUENIL) 200 MG Tab tablet Take 200 mg by mouth 2 times daily. ibandronate 150 MG Tab take 150 mg by mouth every 30 days.. leflunomide 20 MG Tab tablet Take 20 mg by mouth daily. lisinopril 10 MG Tab tablet Take 10 mg by mouth daily. methotrexate 2.5 MG tablet TAKE 5 TABLETS BY MOUTH ONCE EVERY WEEK Multiple Vitamins-Minerals (MULTIVITAMIN ADULT PO) take 1 tablet by mouth at bedtime.. pantoprazole [address] take 40 mg by mouth every evening at 6 PM.. Psyllium (METAMUCIL FIBER PO) take 1 Dose by mouth every evening.. traMADol 50 MG Tab tablet Take 50 mg by mouth 2 times daily as needed. triamterene-hydrochlorothiazide 37.5-25 MG Cap take 1 capsule by mouth as needed (edema).. TURMERIC CURCUMIN PO Take by mouth. zonisamide 100 MG Cap take 100 mg by mouth at bedtime.. apixaban 2.5 MG Tab tablet Take 1 tablet by mouth every 12 hours. This medication is for blood clotprevention 70 tablet 0 baclofen 10 MG Tab Take 20 mg by mouth 3 times daily as needed. clonazePAM 0.5 MG Tab tablet TAKE 1/2 TO 1 TABLET BY MOUTH AT BEDTIME NEEDED 1 dexamethasone 4 MG/ML Solution injection 1 mL by Other route As directed for 18 doses. (1 cc 3 x a week at physical therapy via iontophoresis) for up to 18 doses. (Patient not taking: Reported on 04/18/2019) 30 mL 0 docusate 100 MG Cap capsule Take 1 capsule by mouth 2 times daily. (Patient not taking: Reported on03/01/2019) 60 capsule 0 oxyCODONE 5 MG Tab tablet Take 1-2 tabs po q 4-6 hours PRN pain. 60 tablet 0 No facility-administered medications prior to visit. Current Outpatient Medications: acetaminophen 325 MG tablet, Take 2 tablets by mouth every 4 hours as needed for Mild Pain., Disp: 50 tablet, Rfl: 1 ALPHA LIPOIC ACID PO, take 200 mg by mouth 3 times daily.., Disp: , Rfl: amoxicillin 250 MG capsule, Take 500 mg by mouth every 8 hours. 4 capsules 1 hour before procedure,Disp: , Rfl: ascorbic acid 500 MG Tab, Take 500 mg by mouth daily., Disp: , Rfl: Biotin 06817 MCG Tab, take 2 tablets by mouth 2 times daily.. , Disp: , Rfl: Calcium Carb-Cholecalciferol (CALCIUM 600 + D) 600-200 MG-UNIT Tab tablet, Take 2.5 tablets by mouth Daily (with lunch). , Disp: , Rfl: Diclofenac Sodium 1 % Gel gel, Diclofenac Diclofenac Sodium Active 4 GM Topical Four times daily October 01, 2020 10:38am 10-01-[address] [facility] ([id number]), Disp: , Rfl: ferrous sulfate 325 (65 Fe) MG Tab DR tablet, Take 325 mg by mouth 2 times daily as needed., Disp: , Rfl: folic acid 1 MG Tab tablet, Take 1 mg by mouth daily., Disp: , Rfl: Glucosamine-Chondroitin (GLUCOSAMINE CHONDR COMPLEX PO), take 1 tablet by mouth daily.., Disp: , Rfl: hydroxychloroquine (PLAQUENIL) 200 MG Tab tablet, Take 200 mg by mouth 2 times daily., Disp: , Rfl: ibandronate 150 MG Tab, take 150 mg by mouth every 30 days.., Disp: , Rfl: leflunomide 20 MG Tab tablet, Take 20 mg by mouth daily., Disp: , Rfl: lisinopril 10 MG Tab tablet, Take 10 mg by mouth daily., Disp: , Rfl: methotrexate 2.5 MG tablet, TAKE 5 TABLETS BY MOUTH ONCE EVERY WEEK, Disp: , Rfl: Multiple Vitamins-Minerals (MULTIVITAMIN ADULT PO), take 1 tablet by mouth at bedtime.., Disp: , Rfl: pantoprazole [address], take 40 mg by mouth every evening at 6 PM.., Disp: , Rfl: Psyllium (METAMUCIL FIBER PO), take 1 Dose by mouth every evening.. , Disp: , Rfl: traMADol 50 MG Tab tablet, Take 50 mg by mouth 2 times daily as needed., Disp: , Rfl: triamterene-hydrochlorothiazide 37.5-25 MG Cap, take 1 capsule by mouth as needed (edema).., Disp: , Rfl: TURMERIC CURCUMIN PO, Take by mouth., Disp: , Rfl: zonisamide 100 MG Cap, take 100 mg by mouth at bedtime.., Disp: , Rfl: apixaban 2.5 MG Tab tablet, Take 1 tablet by mouth every 12 hours. This medication is for blood clot prevention, Disp: 70 tablet, Rfl: 0 baclofen 10 MG Tab, Take 20 mg by mouth 3 times daily as needed. , Disp: , Rfl: clonazePAM 0.5 MG Tab tablet, TAKE 1/2 TO 1 TABLET BY MOUTH AT BEDTIME NEEDED, Disp: , Rfl: 1 dexamethasone 4 MG/ML Solution injection, 1 mL by Other route As directed for 18 doses. (1 cc 3 x aweek at physical therapy via iontophoresis) for up to 18 doses. (Patient not taking: Reported on 04/18/2019), Disp: 30 mL, Rfl: 0 docusate 100 MG Cap capsule, Take 1 capsule by mouth 2 times daily. (Patient not taking: Reported on 03/01/2019), Disp: 60 capsule, Rfl: 0 oxyCODONE 5 MG Tab tablet, Take 1-2 tabs po q 4-6 hours PRN pain., Disp: 60 tablet, Rfl: 0 Allergies: She is allergic to gralise [gabapentin (once-daily)]; alendronate; gabapentin; and oxcarbazepine. * Noel Kumar LPN - 11/19/2020 2:10 PM EST Ortho Nurse Established Patient Intake Room#: 2 2 year Left TKA 11-21-18, pain of 2, cannot straighten her leg and it varinder, Amoxicillin was ordered today Date: 11/19/2020 2:31 PM Patient: Danyelle Haskins MR#: [id number] : 1955 Age: 65 y.o. Referring Physician: Self, Self Insurance: Payor: MEDICARE / Plan: MEDICARE A AND B / Product Type: *No Product type* / Chief Complaint Patient presents with Left Knee - Post Op Visit Visit Vitals Temp 97.1 F (36.2 C) (Temporal) Ht 1.715 m (5' 7.5 ) Wt 100.2 kg (221 lb) BMI 34.10 kg/m Pain Presence of Pain: complains of pain/discomfort Pain Location: knee, left Select Pain Scale: DVPRS (Defense and Veterans Pain Rating Scale) (Adult- Cognitively Intact) Pain Location: knee, left Select Pain Scale: DVPRS (Defense and Veterans Pain Rating Scale) (Adult- Cognitively Intact) Recent Labs No results found for: CRP No results found for: SEDRATE Lab Results Component Value Date WBC 4.5 11/24/2018 HGB 11.5 (L) 11/24/2018 HCT 33.5 (L) 11/24/2018 PLATELET 191 11/24/2018 MCV 101.1 (H) 11/24/2018 History Past Medical History: Diagnosis Date Pneumonia 2010 History of blood transfusion 2012 bleeding ulcer; pt states had a reaction but does not remember what occured Active advance directive Living Will and Health Care POA Anemia Fe deficiency 30 years ago Anesthesia complication prolonged sedation, freezing cold Ankle swelling bilateral Arthritis Back pain Blood transfusion reaction pt unsure of reaction type Connective tissue disease non-specific Depression Easy bruising History of recent steroid use back injections Insomnia Joint pain Leg pain sciatica radiating to right posterior leg to knee Muscle weakness arms and legs; uses cane or walker for ambulation 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 No current use of beta heidi Numbness feet Osteoarthritis Poor tolerance for activity less than 4 mets due to neuropathy, arthritis, chronic back pain Preoperative clearance Dr Batres 11/15/18 RSD (reflex sympathetic dystrophy) Swelling of multiple joints L knee and right hip Ulcer gastric Use of cane as ambulatory aid Wears glasses Past Surgical History: Procedure Laterality Date REVISION ARTHROPLASTY KNEE Left 11/21/2018 Laterality: Left; Surgeon: New Mcclure MD; Location: [facility] EXTRACTION EXTRACAPSULAR CATARACT W/ IMPLANT (ECCE IOL) Bilateral 2017 [facility] TREATMENT OPEN PATELLAR FX W/ INTERNAL FIXATION OR PATELLECTOMY Left 07/18/2017 Laterality: Left; Surgeon: New Mcclure MD; Location: [facility] OR PATELLECTOMY/HEMIPATELLECTOMY Left 07/18/2017 Laterality: Left; Surgeon: New Mcclure MD; Location: [facility] OR EXCISION SKIN LESION 07/2016 ARTHROPLASTY KNEE TOTAL Left 2015 OTHER SURGICAL 2012 back fusion l2,3,4,5 KNEE ARTHROSCOPY Right 2007 HYSTERECTOMY 2006 D&C DIAGNOSTIC/THERAPEUTIC NONOBSTETRICAL 2005 x2 OTHER SURGICAL 11/1998 eye lid celanzion EXCISION GANGLION CYST WRIST Right 1982 EXCISION GANGLION CYST Left EXCISION SKIN LESION sebaceous cyst off back HIP REPLACEMENT Right 2017 OTHER SURGICAL plantar wart removed OTHER SURGICAL cyst off top of head OTHER SURGICAL uterine ablation OTHER SURGICAL joint replacement TONSILLECTOMY Family History: Her family history includes Bleeding or Clotting Problems in her mother; Cancer in her father and sister; Diabetes in her sister; Heart Disease - Other in her mother; Hypertension in her mother. Social History: Her reports that she has never smoked. She has never used smokeless tobacco. She reports that she does not drink alcohol or use drugs. Outpatient Medications Prior to Visit Medication Sig Dispense Refill acetaminophen 325 MG tablet Take 2 tablets by mouth every 4 hours as needed for Mild Pain. 50 tablet 1 ALPHA LIPOIC ACID PO take 200 mg by mouth 3 times daily.. amoxicillin 250 MG capsule Take 500 mg by mouth every 8 hours. 4 capsules 1 hour before procedure ascorbic acid 500 MG Tab Take 500 mg by mouth daily. Biotin 63857 MCG Tab take 2 tablets by mouth 2 times daily.. Calcium Carb-Cholecalciferol (CALCIUM 600 + D) 600-200 MG-UNIT Tab tablet Take 2.5 tablets by mouthDaily (with lunch). Diclofenac Sodium 1 % Gel gel Diclofenac Diclofenac Sodium Active 4 GM Topical Four times daily October 01, 2020 10:38am 10-01-[address] [facility] ([id number]) ferrous sulfate 325 (65 Fe) MG Tab DR tablet Take 325 mg by mouth 2 times daily as needed. folic acid 1 MG Tab tablet Take 1 mg by mouth daily. Glucosamine-Chondroitin (GLUCOSAMINE CHONDR COMPLEX PO) take 1 tablet by mouth daily.. hydroxychloroquine (PLAQUENIL) 200 MG Tab tablet Take 200 mg by mouth 2 times daily. ibandronate 150 MG Tab take 150 mg by mouth every 30 days.. leflunomide 20 MG Tab tablet Take 20 mg by mouth daily. lisinopril 10 MG Tab tablet Take 10 mg by mouth daily. methotrexate 2.5 MG tablet TAKE 5 TABLETS BY MOUTH ONCE EVERY WEEK Multiple Vitamins-Minerals (MULTIVITAMIN ADULT PO) take 1 tablet by mouth at bedtime.. pantoprazole [address] take 40 mg by mouth every evening at 6 PM.. Psyllium (METAMUCIL FIBER PO) take 1 Dose by mouth every evening.. traMADol 50 MG Tab tablet Take 50 mg by mouth 2 times daily as needed. triamterene-hydrochlorothiazide 37.5-25 MG Cap take 1 capsule by mouth as needed (edema).. TURMERIC CURCUMIN PO Take by mouth. zonisamide 100 MG Cap take 100 mg by mouth at bedtime.. apixaban 2.5 MG Tab tablet Take 1 tablet by mouth every 12 hours. This medication is for blood clotprevention 70 tablet 0 baclofen 10 MG Tab Take 20 mg by mouth 3 times daily as needed. clonazePAM 0.5 MG Tab tablet TAKE 1/2 TO 1 TABLET BY MOUTH AT BEDTIME NEEDED 1 dexamethasone 4 MG/ML Solution injection 1 mL by Other route As directed for 18 doses. (1 cc 3 x a week at physical therapy via iontophoresis) for up to 18 doses. (Patient not taking: Reported on 04/18/2019) 30 mL 0 docusate 100 MG Cap capsule Take 1 capsule by mouth 2 times daily. (Patient not taking: Reported on03/01/2019) 60 capsule 0 oxyCODONE 5 MG Tab tablet Take 1-2 tabs po q 4-6 hours PRN pain. 60 tablet 0 No facility-administered medications prior to visit. Current Outpatient Medications: acetaminophen 325 MG tablet, Take 2 tablets by mouth every 4 hours as needed for Mild Pain., Disp: 50 tablet, Rfl: 1 ALPHA LIPOIC ACID PO, take 200 mg by mouth 3 times daily.., Disp: , Rfl: amoxicillin 250 MG capsule, Take 500 mg by mouth every 8 hours. 4 capsules 1 hour before procedure,Disp: , Rfl: ascorbic acid 500 MG Tab, Take 500 mg by mouth daily., Disp: , Rfl: Biotin 90622 MCG Tab, take 2 tablets by mouth 2 times daily.. , Disp: , Rfl: Calcium Carb-Cholecalciferol (CALCIUM 600 + D) 600-200 MG-UNIT Tab tablet, Take 2.5 tablets by mouth Daily (with lunch). , Disp: , Rfl: Diclofenac Sodium 1 % Gel gel, Diclofenac Diclofenac Sodium Active 4 GM Topical Four times daily October 01, 2020 10:38am 10-01-2020 [facility] ([id number]), Disp: , Rfl: ferrous sulfate 325 (65 Fe) MG Tab DR tablet, Take 325 mg by mouth 2 times daily as needed., Disp: , Rfl: folic acid 1 MG Tab tablet, Take 1 mg by mouth daily., Disp: , Rfl: Glucosamine-Chondroitin (GLUCOSAMINE CHONDR COMPLEX PO), take 1 tablet by mouth daily.., Disp: , Rfl: hydroxychloroquine (PLAQUENIL) 200 MG Tab tablet, Take 200 mg by mouth 2 times daily., Disp: , Rfl: ibandronate 150 MG Tab, take 150 mg by mouth every 30 days.., Disp: , Rfl: leflunomide 20 MG Tab tablet, Take 20 mg by mouth daily., Disp: , Rfl: lisinopril 10 MG Tab tablet, Take 10 mg by mouth daily., Disp: , Rfl: methotrexate 2.5 MG tablet, TAKE 5 TABLETS BY MOUTH ONCE EVERY WEEK, Disp: , Rfl: Multiple Vitamins-Minerals (MULTIVITAMIN ADULT PO), take 1 tablet by mouth at bedtime.., Disp: , Rfl: pantoprazole [address], take 40 mg by mouth every evening at 6 PM.., Disp: , Rfl: Psyllium (METAMUCIL FIBER PO), take 1 Dose by mouth every evening.. , Disp: , Rfl: traMADol 50 MG Tab tablet, Take 50 mg by mouth 2 times daily as needed., Disp: , Rfl: triamterene-hydrochlorothiazide 37.5-25 MG Cap, take 1 capsule by mouth as needed (edema).., Disp: , Rfl: TURMERIC CURCUMIN PO, Take by mouth., Disp: , Rfl: zonisamide 100 MG Cap, take 100 mg by mouth at bedtime.., Disp: , Rfl: apixaban 2.5 MG Tab tablet, Take 1 tablet by mouth every 12 hours. This medication is for blood clot prevention, Disp: 70 tablet, Rfl: 0 baclofen 10 MG Tab, Take 20 mg by mouth 3 times daily as needed. , Disp: , Rfl: clonazePAM 0.5 MG Tab tablet, TAKE 1/2 TO 1 TABLET BY MOUTH AT BEDTIME NEEDED, Disp: , Rfl: 1 dexamethasone 4 MG/ML Solution injection, 1 mL by Other route As directed for 18 doses. (1 cc 3 x aweek at physical therapy via iontophoresis) for up to 18 doses. (Patient not taking: Reported on 04/18/2019), Disp: 30 mL, Rfl: 0 docusate 100 MG Cap capsule, Take 1 capsule by mouth 2 times daily. (Patient not taking: Reported on 03/01/2019), Disp: 60 capsule, Rfl: 0 oxyCODONE 5 MG Tab tablet, Take 1-2 tabs po q 4-6 hours PRN pain., Disp: 60 tablet, Rfl: 0 Allergies: She is allergic to gralise [gabapentin (once-daily)]; alendronate; gabapentin; and oxcarbazepine. documented in this encounter* New Mcclure MD - 01/03/2019 2:40 PM EST Dictation on: 01/03/2019 4:13 PM by: NEW MCCLURE [[email or web address]] I have reviewed the findings of the clinical integrated logistics support manager and agree with their assessment. New Mcclure MD Ortho Nurse Established Patient Intake Room#: 3 6 week F/U left knee ext mechanism repair, no C/O pain Date: 01/03/2019 3:26 PM Patient: Danyelle Haskins MR#: [id number] : 1955 Age: 63 y.o. Referring Physician: New Mcclure MD Insurance: Payor: MEDICARE / Plan: MEDICARE A AND B / Product Type: *No Product type* / Chief Complaint Patient presents with Left Knee - Follow-up Visit Vitals Temp 97.3 F (36.3 C) (Temporal) Ht 1.727 m (5' 8 ) Wt 94.3 kg (208 lb) BMI 31.63 kg/m Pain Presence of Pain: denies pain/discomfort (01/03/19 1525) Recent Labs No results found for: CRP No results found for: SEDRATE Lab Results Component Value Date WBC 4.5 11/24/2018 HGB 11.5 (L) 11/24/2018 HCT 33.5 (L) 11/24/2018 PLATELET 191 11/24/2018 MCV 101.1 (H) 11/24/2018 History Past Medical History: Diagnosis Date Pneumonia 2010 History of blood transfusion 2012 bleeding ulcer; pt states had a reaction but does not remember what occured Active advance directive Living Will and Health Care POA Anemia Fe deficiency 30 years ago Anesthesia complication prolonged sedation, freezing cold Ankle swelling bilateral Arthritis Back pain Blood transfusion reaction pt unsure of reaction type Connective tissue disease non-specific Depression Easy bruising History of recent steroid use back injections Insomnia Joint pain Leg pain sciatica radiating to right posterior leg to knee Muscle weakness arms and legs; uses cane or walker for ambulation 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 No current use of beta heidi Numbness feet Osteoarthritis Poor tolerance for activity less than 4 mets due to neuropathy, arthritis, chronic back pain Preoperative clearance Dr Batres 11/15/18 RSD (reflex sympathetic dystrophy) Swelling of multiple joints L knee and right hip Ulcer gastric Use of cane as ambulatory aid Wears glasses Past Surgical History: Procedure Laterality Date REVISION ARTHROPLASTY KNEE Left 11/21/2018 Laterality: Left; Surgeon: New Mcclure MD; Location: [facility] EXTRACTION EXTRACAPSULAR CATARACT W/ IMPLANT (ECCE IOL) Bilateral 2017 [facility] TREATMENT OPEN PATELLAR FX W/ INTERNAL FIXATION OR PATELLECTOMY Left 07/18/2017 Laterality: Left; Surgeon: New Mcclure MD; Location: [facility] PATELLECTOMY/HEMIPATELLECTOMY Left 07/18/2017 Laterality: Left; Surgeon: New Mcclure MD; Location: [facility] EXCISION SKIN LESION 07/2016 ARTHROPLASTY KNEE TOTAL Left 2014 OTHER SURGICAL 2011 back fusion l2,3,4,5 KNEE ARTHROSCOPY Right 2007 HYSTERECTOMY 2006 [facility]&C DIAGNOSTIC/THERAPEUTIC NONOBSTETRICAL 2005 x2 OTHER SURGICAL 11/1998 eye lid celanzion EXCISION GANGLION CYST WRIST Right 1982 EXCISION GANGLION CYST Left EXCISION SKIN LESION sebaceous cyst off back HIP REPLACEMENT Right 2016 OTHER SURGICAL plantar wart removed OTHER SURGICAL cyst off top of head OTHER SURGICAL uterine ablation OTHER SURGICAL joint replacement TONSILLECTOMY Family History: Her family history includes Bleeding or Clotting Problems in her mother; Cancer in her father and sister; Diabetes in her sister; Heart Disease - Other in her mother; Hypertension in her mother. Social History: Her reports that she has never smoked. She has never used smokeless tobacco. She reports that she does not drink alcohol or use drugs. Outpatient Medications Prior to Visit Medication Sig Dispense Refill acetaminophen 325 MG tablet Take 2 tablets by mouth every 4 hours as needed for Mild Pain. 50 tablet 1 ALPHA LIPOIC ACID PO take 200 mg by mouth 3 times daily.. ascorbic acid 500 MG Tab Take 500 mg by mouth daily. baclofen 10 MG Tab Take 20 mg by mouth 3 times daily as needed. Biotin 29190 MCG Tab take 2 tablets by mouth 2 times daily.. Calcium Carb-Cholecalciferol (CALCIUM 600 + D) 600-200 MG-UNIT Tab tablet Take 2.5 tablets by mouthDaily (with lunch). clonazePAM 0.5 MG Tab tablet TAKE 1/2 TO 1 TABLET BY MOUTH AT BEDTIME NEEDED 1 docusate 100 MG Cap capsule Take 1 capsule by mouth 2 times daily. 60 capsule 0 folic acid 1 MG Tab tablet Take 1 mg by mouth daily. Glucosamine-Chondroitin (GLUCOSAMINE CHONDR COMPLEX PO) take 1 tablet by mouth daily.. ibandronate 150 MG Tab take 150 mg by mouth every 30 days.. lisinopril 10 MG Tab tablet Take 10 mg by mouth daily. Multiple Vitamins-Minerals (MULTIVITAMIN ADULT PO) take 1 tablet by mouth at bedtime.. pantoprazole [address] take 40 mg by mouth every evening at 6 PM.. Psyllium (METAMUCIL FIBER PO) take 1 Dose by mouth every evening.. triamterene-hydrochlorothiazide 37.5-25 MG Cap take 1 capsule by mouth as needed (edema).. zonisamide 100 MG Cap take 100 mg by mouth at bedtime.. apixaban 2.5 MG Tab tablet Take 1 tablet by mouth every 12 hours. This medication is for blood clotprevention 70 tablet 0 oxyCODONE 5 MG Tab tablet Take 1-2 tabs po q 4-6 hours PRN pain. 60 tablet 0 No facility-administered medications prior to visit. Current Outpatient Medications: acetaminophen 325 MG tablet, Take 2 tablets by mouth every 4 hours as needed for Mild Pain., Disp: 50 tablet, Rfl: 1 ALPHA LIPOIC ACID PO, take 200 mg by mouth 3 times daily.., Disp: , Rfl: ascorbic acid 500 MG Tab, Take 500 mg by mouth daily., Disp: , Rfl: baclofen 10 MG Tab, Take 20 mg by mouth 3 times daily as needed. , Disp: , Rfl: Biotin 60273 MCG Tab, take 2 tablets by mouth 2 times daily.. , Disp: , Rfl: Calcium Carb-Cholecalciferol (CALCIUM 600 + D) 600-200 MG-UNIT Tab tablet, Take 2.5 tablets by mouth Daily (with lunch). , Disp: , Rfl: clonazePAM 0.5 MG Tab tablet, TAKE 1/2 TO 1 TABLET BY MOUTH AT BEDTIME NEEDED, Disp: , Rfl: 1 docusate 100 MG Cap capsule, Take 1 capsule by mouth 2 times daily., Disp: 60 capsule, Rfl: 0 folic acid 1 MG Tab tablet, Take 1 mg by mouth daily., Disp: , Rfl: Glucosamine-Chondroitin (GLUCOSAMINE CHONDR COMPLEX PO), take 1 tablet by mouth daily.., Disp: , Rfl: ibandronate 150 MG Tab, take 150 mg by mouth every 30 days.., Disp: , Rfl: lisinopril 10 MG Tab tablet, Take 10 mg by mouth daily., Disp: , Rfl: Multiple Vitamins-Minerals (MULTIVITAMIN ADULT PO), take 1 tablet by mouth at bedtime.., Disp: , Rfl: pantoprazole [address], take 40 mg by mouth every evening at 6 PM.., Disp: , Rfl: Psyllium (METAMUCIL FIBER PO), take 1 Dose by mouth every evening.. , Disp: , Rfl: triamterene-hydrochlorothiazide 37.5-25 MG Cap, take 1 capsule by mouth as needed (edema).., Disp: , Rfl: zonisamide 100 MG Cap, take 100 mg by mouth at bedtime.., Disp: , Rfl: apixaban 2.5 MG Tab tablet, Take 1 tablet by mouth every 12 hours. This medication is for blood clot prevention, Disp: 70 tablet, Rfl: 0 oxyCODONE 5 MG Tab tablet, Take 1-2 tabs po q 4-6 hours PRN pain., Disp: 60 tablet, Rfl: 0 Allergies: She is allergic to gralise [gabapentin (once-daily)]; alendronate; gabapentin; and oxcarbazepine. Procedures * Noel Kumar LPN - 01/03/2019 2:40 PM EST Ortho Nurse Established Patient Intake Room#: 3 6 week F/U left knee ext mechanism repair, no C/O pain Date: 01/03/2019 3:26 PM Patient: Danyelle Haskins MR#: [id number] : 1955 Age: 63 y.o. Referring Physician: New Mcclure MD Insurance: Payor: MEDICARE / Plan: MEDICARE A AND B / Product Type: *No Product type* / Chief Complaint Patient presents with Left Knee - Follow-up Visit Vitals Temp 97.3 F (36.3 C) (Temporal) Ht 1.727 m (5' 8 ) Wt 94.3 kg (208 lb) BMI 31.63 kg/m Pain Presence of Pain: denies pain/discomfort (01/03/19 1525) Recent Labs No results found for: CRP No results found for: SEDRATE Lab Results Component Value Date WBC 4.5 11/24/2018 HGB 11.5 (L) 11/24/2018 HCT 33.5 (L) 11/24/2018 PLATELET 191 11/24/2018 MCV 101.1 (H) 11/24/2018 History Past Medical History: Diagnosis Date Pneumonia 2010 History of blood transfusion 2012 bleeding ulcer; pt states had a reaction but does not remember what occured Active advance directive Living Will and Health Care POA Anemia Fe deficiency 30 years ago Anesthesia complication prolonged sedation, freezing cold Ankle swelling bilateral Arthritis Back pain Blood transfusion reaction pt unsure of reaction type Connective tissue disease non-specific Depression Easy bruising History of recent steroid use back injections Insomnia Joint pain Leg pain sciatica radiating to right posterior leg to knee Muscle weakness arms and legs; uses cane or walker for ambulation 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 No current use of beta heidi Numbness feet Osteoarthritis Poor tolerance for activity less than 4 mets due to neuropathy, arthritis, chronic back pain Preoperative clearance Dr Batres 11/15/18 RSD (reflex sympathetic dystrophy) Swelling of multiple joints L knee and right hip Ulcer gastric Use of cane as ambulatory aid Wears glasses Past Surgical History: Procedure Laterality Date REVISION ARTHROPLASTY KNEE Left 11/21/2018 Laterality: Left; Surgeon: New Mcclure MD; Location: [facility] EXTRACTION EXTRACAPSULAR CATARACT W/ IMPLANT (ECCE IOL) Bilateral 2017 [facility] TREATMENT OPEN PATELLAR FX W/ INTERNAL FIXATION OR PATELLECTOMY Left 07/18/2017 Laterality: Left; Surgeon: New Mcclure MD; Location: [facility] OR PATELLECTOMY/HEMIPATELLECTOMY Left 07/18/2017 Laterality: Left; Surgeon: New Mcclure MD; Location: [facility] OR EXCISION SKIN LESION 07/2016 ARTHROPLASTY KNEE TOTAL Left 2014 OTHER SURGICAL 2012 back fusion l2,3,4,5 KNEE ARTHROSCOPY Right 2007 HYSTERECTOMY 2006 [facility] DIAGNOSTIC/THERAPEUTIC NONOBSTETRICAL 2005 x2 OTHER SURGICAL 11/1998 eye lid celanzion EXCISION GANGLION CYST WRIST Right 1982 EXCISION GANGLION CYST Left EXCISION SKIN LESION sebaceous cyst off back HIP REPLACEMENT Right 2017 OTHER SURGICAL plantar wart removed OTHER SURGICAL cyst off top of head OTHER SURGICAL uterine ablation OTHER SURGICAL joint replacement TONSILLECTOMY Family History: Her family history includes Bleeding or Clotting Problems in her mother; Cancer in her father and sister; Diabetes in her sister; Heart Disease - Other in her mother; Hypertension in her mother. Social History: Her reports that she has never smoked. She has never used smokeless tobacco. She reports that she does not drink alcohol or use drugs. Outpatient Medications Prior to Visit Medication Sig Dispense Refill acetaminophen 325 MG tablet Take 2 tablets by mouth every 4 hours as needed for Mild Pain. 50 tablet 1 ALPHA LIPOIC ACID PO take 200 mg by mouth 3 times daily.. ascorbic acid 500 MG Tab Take 500 mg by mouth daily. baclofen 10 MG Tab Take 20 mg by mouth 3 times daily as needed. Biotin 48855 MCG Tab take 2 tablets by mouth 2 times daily.. Calcium Carb-Cholecalciferol (CALCIUM 600 + D) 600-200 MG-UNIT Tab tablet Take 2.5 tablets by mouthDaily (with lunch). clonazePAM 0.5 MG Tab tablet TAKE 1/2 TO 1 TABLET BY MOUTH AT BEDTIME NEEDED 1 docusate 100 MG Cap capsule Take 1 capsule by mouth 2 times daily. 60 capsule 0 folic acid 1 MG Tab tablet Take 1 mg by mouth daily. Glucosamine-Chondroitin (GLUCOSAMINE CHONDR COMPLEX PO) take 1 tablet by mouth daily.. ibandronate 150 MG Tab take 150 mg by mouth every 30 days.. lisinopril 10 MG Tab tablet Take 10 mg by mouth daily. Multiple Vitamins-Minerals (MULTIVITAMIN ADULT PO) take 1 tablet by mouth at bedtime.. pantoprazole [address] take 40 mg by mouth every evening at 6 PM.. Psyllium (METAMUCIL FIBER PO) take 1 Dose by mouth every evening.. triamterene-hydrochlorothiazide 37.5-25 MG Cap take 1 capsule by mouth as needed (edema).. zonisamide 100 MG Cap take 100 mg by mouth at bedtime.. apixaban 2.5 MG Tab tablet Take 1 tablet by mouth every 12 hours. This medication is for blood clotprevention 70 tablet 0 oxyCODONE 5 MG Tab tablet Take 1-2 tabs po q 4-6 hours PRN pain. 60 tablet 0 No facility-administered medications prior to visit. Current Outpatient Medications: acetaminophen 325 MG tablet, Take 2 tablets by mouth every 4 hours as needed for Mild Pain., Disp: 50 tablet, Rfl: 1 ALPHA LIPOIC ACID PO, take 200 mg by mouth 3 times daily.., Disp: , Rfl: ascorbic acid 500 MG Tab, Take 500 mg by mouth daily., Disp: , Rfl: baclofen 10 MG Tab, Take 20 mg by mouth 3 times daily as needed. , Disp: , Rfl: Biotin 29066 MCG Tab, take 2 tablets by mouth 2 times daily.. , Disp: , Rfl: Calcium Carb-Cholecalciferol (CALCIUM 600 + D) 600-200 MG-UNIT Tab tablet, Take 2.5 tablets by mouth Daily (with lunch). , Disp: , Rfl: clonazePAM 0.5 MG Tab tablet, TAKE 1/2 TO 1 TABLET BY MOUTH AT BEDTIME NEEDED, Disp: , Rfl: 1 docusate 100 MG Cap capsule, Take 1 capsule by mouth 2 times daily., Disp: 60 capsule, Rfl: 0 folic acid 1 MG Tab tablet, Take 1 mg by mouth daily., Disp: , Rfl: Glucosamine-Chondroitin (GLUCOSAMINE CHONDR COMPLEX PO), take 1 tablet by mouth daily.., Disp: , Rfl: ibandronate 150 MG Tab, take 150 mg by mouth every 30 days.., Disp: , Rfl: lisinopril 10 MG Tab tablet, Take 10 mg by mouth daily., Disp: , Rfl: Multiple Vitamins-Minerals (MULTIVITAMIN ADULT PO), take 1 tablet by mouth at bedtime.., Disp: , Rfl: pantoprazole [address], take 40 mg by mouth every evening at 6 PM.., Disp: , Rfl: Psyllium (METAMUCIL FIBER PO), take 1 Dose by mouth every evening.. , Disp: , Rfl: triamterene-hydrochlorothiazide 37.5-25 MG Cap, take 1 capsule by mouth as needed (edema).., Disp: , Rfl: zonisamide 100 MG Cap, take 100 mg by mouth at bedtime.., Disp: , Rfl: apixaban 2.5 MG Tab tablet, Take 1 tablet by mouth every 12 hours. This medication is for blood clot prevention, Disp: 70 tablet, Rfl: 0 oxyCODONE 5 MG Tab tablet, Take 1-2 tabs po q 4-6 hours PRN pain., Disp: 60 tablet, Rfl: 0 Allergies: She is allergic to gralise [gabapentin (once-daily)]; alendronate; gabapentin; and oxcarbazepine. documented in this encounter Assessments Diagnosis Pre-op exam - Primary Preoperative examination, unspecified Diagnosis Pain in left knee- Primary Pain in joint, lower leg Pre-op exam Preoperative examination, unspecified Extensor mechanism malalignment Unspecified internal derangement of knee Postoperative pain of left knee Acute postoperative pain of left knee Obesity: body mass index of 30.0-34.9 Obesity, unspecified Benign hypertension Essential hypertension, benign Rheumatoid arthritis GERD (gastroesophageal reflux disease) Esophageal reflux Synovial hernia Other disorders of synovium, tendon, and bursa Diagnosis Hx of total knee arthroplasty, left- Primary Diagnosis History of total knee arthroplasty, left Diagnosis History of total knee arthroplasty, left- Primary Right hip pain Pain in joint, pelvic region and thigh Diagnosis Right hip pain- Primary Pain in joint, pelvic region and thigh Left knee pain, unspecified chronicity Right knee pain, unspecified chronicity Diagnosis History of total knee arthroplasty, left- Primary Arthritis of right knee Unspecified arthropathy, lower leg Diagnosis Hx of total knee arthroplasty, left- Primary Pain in prosthetic joint, initial encounter Diagnosis History of total knee arthroplasty, left- Primary Hospital Course * Tanvi Hernandez, GEAR CODING MACHINE OPERATOR - 11/24/2018 11:21 AM EST Formatting of this note may be different from the original. Discharge Summary Name: Danyelle Haskins Age: 63 y.o. Birthday: 1955 Admit Date: 11/21/2018 8:19 AM Discharge Date: 11/24/2018 Brief Summary of Hospital Course: Pain in left knee S/p left TKA POD#3 PT OT social service worker discharge planning DVT prophylaxis Kandisquanatoliy Will dc to SNF for additional therapy Obesity: body mass index of 30.0-34.9 Lifestyle changes and dietary modifications Benign hypertension Continue outpatient therapy Add when necessary for systolic blood pressure greater than 160 Rheumatoid arthritis Resume outpatient therapy when okay per orthopedic surgery GERD (gastroesophageal reflux disease) Continue PPI daily Discharge Diagnosis; Principal Problem: Pain in left knee Active Problems: Obesity: body mass index of 30.0-34.9 Benign hypertension Rheumatoid arthritis GERD (gastroesophageal reflux disease) Discharge Vital Signs: Blood pressure 166/77, pulse 81, temperature 98 F (36.7 C), temperature source Temporal, resp. rate 16, height 1.727 m (5' 8 ), weight 96 kg (211 lb 11.2 oz), SpO2 98 %. PHYSICAL EXAM: General: Patient resting comfortably. Awake. No acute distress. Cardiovascular: Regular rate and rhythm, without murmurs, rubs, or gallops. Respiratory: Bilateral Upper and Lower Lobes without wheezes, rales, or rhonchi Abdomen: Soft, rounded, non-tender. Bowel sounds present x4 quadrants. No rebound. No organomegaly or masses noted upon deep palpation. Extremities: No edema, clubbing or cyanosis, pulses palpable 2+ distally. Skin: Warm, Dry, Intact. Discharge Labs: Lab Results Component Value Date WBC 4.5 11/24/2018 HGB 11.5 (L) 11/24/2018 HCT 33.5 (L) 11/24/2018 PLATELET 191 11/24/2018 MCV 101.1 (H) 11/24/2018 Lab Results Component Value Date SODIUM 139 10/23/2018 POTASSIUM 4.0 10/23/2018 CHLORIDE 105 10/23/2018 CO2 25 10/23/2018 BUN 17 10/23/2018 CREATSERUM 0.6 10/23/2018 GLUCOSE 93 10/23/2018 No results found for: ALT, TRANSFERASEA, AST, GGT, GAMMAGT, ALKPHOS, BILITOTAL, BILIDIRECT Discharge Medications: Medication List for when you go home STOP taking these medications Calcium-Vitamin D 600-200 MG-UNIT TABS chlorhexidine 4 % LIQD Commonly known as: HIBICLENS hydroxychloroquine ([id number]) 200 MG TABS leflunomide 20 MG TABS tablet Commonly known as: ARAVA lidocaine 5 % OINT ointment Commonly known as: XYLOCAINE Magnesium Oxide 400 (240 Mg) MG TABS tablet methotrexate 2.5 MG tablet Commonly known as: TREXALL mupirocin 2 % OINT ointment Commonly known as: BACTROBAN OXcarbazepine 150 MG TABS Commonly known as: TRILEPTAL traMADol 50 MG TABS tablet Commonly known as: ULTRAM TYLENOL ARTHRITIS PAIN PO You also have another medication with the same name that you need to continue taking as instructed. VOLTAREN 1 % GEL gel Generic drug: Diclofenac Sodium TAKE these medications acetaminophen 325 MG tablet Take 2 tablets by mouth every 4 hours as needed for Mild Pain. Commonly known as: TYLENOL What changed: Another medication with the same name was removed. Continue taking this medication, and follow the directions you see here. ALPHA LIPOIC ACID PO take 200 mg by mouth 3 times daily.. apixaban 2.5 MG TABS tablet Take 1 tablet by mouth every 12 hours. This medication is for blood clot prevention Commonly known as: ELIQUIS ascorbic acid 500 MG TABS Take 500 mg by mouth daily. Commonly known as: VITAMIN C baclofen 10 MG TABS tablet Take 20 mg by mouth 3 times daily as needed. Commonly known as: LIORESAL Biotin 68216 MCG TABS take 2 tablets by mouth 2 times daily.. CALCIUM 600 + D 600-200 MG-UNIT TABS tablet Take 2.5 tablets by mouth Daily (with lunch). Generic drug: Calcium Carb-Cholecalciferol clonazePAM 0.5 MG TABS tablet TAKE 1/2 TO 1 TABLET BY MOUTH AT BEDTIME NEEDED Commonly known as: KLONOPIN docusate 100 MG CAPS capsule Take 1 capsule by mouth 2 times daily. Commonly known as: COLACE folic acid 1 MG TABS tablet Take 1 mg by mouth daily. Commonly known as: FOLVITE GLUCOSAMINE CHONDR COMPLEX PO take 1 tablet by mouth daily.. ibandronate 150 MG TABS tablet take 150 mg by mouth every 30 days.. Commonly known as: BONIVA METAMUCIL FIBER PO take 1 Dose by mouth every evening.. MULTIVITAMIN ADULT PO take 1 tablet by mouth at bedtime.. oxyCODONE 5 MG TABS tablet Take 1-2 tabs po q 4-6 hours PRN pain. Commonly known as: ROXICODONE For diagnoses: Acute postoperative pain of left knee What changed: additional instructions pantoprazole [address] tablet DR take 40 mg by mouth every evening at 6 PM.. Commonly known as: PROTONIX triamterene-hydrochlorothiazide 37.5-25 MG CAPS per capsule take 1 capsule by mouth as needed (edema).. Commonly known as: DYAZIDE zonisamide 100 MG CAPS take 100 mg by mouth at bedtime.. Commonly known as: ZONEGRAN Discharge Activity: Resume pre-hospital activities as tolerated. Discharge Diet: Resume pre-hospital diet as tolerated. Discharge Follow-up: New Mcclure MD [address] [facility] [id number] In 3 weeks Discharge Disposition: Patient will be discharged in stable condition. Discharge Time: Including assessment, planning, and medication reconciliation was greater than 35 min. Tanvi Hernandez DNP completing Discharge Summary for Dr. Vance Please note Portions of this note utilized Somo dictation software, please excuse any typographical or grammatical errors. Associated attestation - Arlyn Vance DO - 11/24/2018 4:16 PM EST Patient seen and examined independently. Meds, labs, and radiographs reviewed. Lungs clear and heart tones regular on exam. Denies CP/SOB. I agree with assessments and plan of care. in this encounter Discharge Instructions * Discharge Instr - Wound Care - Yuliana Ramos RN - 11/24/2018 5:20 PM EST You have been given an educational handout on your JAKE dressing that is covering your incision. You will remove this dressing 11-28-18Tuesday morning. Gently peel back the dressing while holding theskin taught. Do not rip or quickly pull off dressing. Once the dressing is removed you will discardthe dressing, tubing and battery pack in the trash. Once your JAKE dressing is removed you will place an ABD over your incision for comfort. When applying your new ABD pad as a reminder do not place any tape over your ABD pad. Your LUZ MARINA hose are to hold your pad in place. Your incision is closed with renae. These are to be removed by a nurse at the [place] 10-14 days after surgery. Your surgery d ate was 11-21-18. Do not get your incision wet until after your renae have been removed. Once the renae have been removed and you are able to shower do not saturate or submerge extremity in water (i.e. Bathtub, hot tub, etc.) until cleared by the provider. Do not wash/scrub directly over/on yourincision. Pat your incision dry do not rub your incision with a towel. Do not place any lotions, ointments, creams or powder on your incision or operative leg. * Discharge Instr - Notify - Yuliana Ramos RN - 11/24/2018 5:16 PM EST Contact Office ([phone]) if: > Total Knee ROM < 90 degrees upon admission to home health or at any time during recovery period > Any falls or injuries > Redness, drainage or swelling at the incision site that is out of the ordinary from post-operative findings (minor redness, swelling and warmth around the entire knee are common post-operatively) > Patient non-compliance with assistive devices during gait > Fever > 101 degrees. For low grade fevers use Incentive Spirometry @ 10 puffs per hour and tylenol as directed. * Discharge Instr - Diet - Yuliana Ramos RN - 11/24/2018 5:15 PM EST Resume pre-hospital diet. * Discharge Instr - Activity - Yuliana Ramos RN - 11/24/2018 5:15 PM EST Toe touch weight bearing with wheeled walker and gait belt. * Yuliana Ramos RN - 11/24/2018 Please also note patient has renae and will need renae removal 10-14 days post op. You have been given printed educational handouts on all new medications. Please refer to your greendischarge folder for handouts. You have been given seven ABD pads, one ice gel compression wrap, six ice gel packs, two pairs of LUZ MARINA hose and all personal belongings. If at any time you have questions please refer to your green discharge folder with all at home care instructions. If at any time you feel you have an emergency please dial 911 [address] you to your closest ER. Luz Marina Hose: > Help reduce the risk of blood clots and decrease swelling > To be worn bilaterally to the lower extremities for 30 days post-op > Patients can take their luz marina hose off for 1 hour for every 8 hours that they wear them Medications: > Patients will be sent home with prescriptions, including medication for pain to be taken as directed. Stay ahead and do not allow your pain to get out of control. > If prescribed Aspirin, take twice a day for 30 days. Do not skip a dose, this is your medication for the prevention of blood clots. > If you have not had a bowel movement by your 3rd post-operative day you will need to use a gentle over the counter laxative such as Milk of magnesia, Fiberlax, Miralax, etc. Bowels need to move within 3 days or take action. Gel Ice Packs > Change every 4 hours or as needed for swelling and pain for at least the first 2 weeks Ambulation > Weight bearing status : Toe touch > Above weight bearing status as tolerated with a walker then progress to a cane if stable, unless noted otherwise by the physician or therapist. For Knee Replacements: > Physical therapy 3 times per week for 6 full weeks > Maintain uninterrupted therapy if transitioning from home therapy to out patient therapy > No therabands over your wound/incision > Patients should be doing home exercises on days they are not working with a therapist > Do not rest with a pillow under the knee, work on flexion and extension exercises to improve range of motion The following attachments cannot be sent through Care Everywhere. * Acetaminophen tablets or caplets (Togolese) * Apixaban oral tablets (Togolese) * Docusate capsules (Togolese) * Oxycodone tablets or capsules (Togolese) in this encounter Additional Source Comments INFORMATION SOURCE (unrecogn ized section and content) DATE CREATED AUTHOR 05/02/2018 [facility] DATE CREATED AUTHOR AUTHOR'S ORGANIZ ATION 05/02/2018 [facility] DATE CREATED AUTHOR AUTHOR'S ORGANIZ ATION 05/05/2018 [facility] DATE CREATED AUTHOR AUTHOR'S ORGANIZ ATION 03/22/2020 [facility] DATE CREATED AUTHOR AUTHOR'S ORGANIZ ATION 02/01/2022 [facility] DATE CREATED AUTHOR AUTHOR'S ORGANIZ ATION 02/13/2023 [facility] DATE CREATED AUTHOR AUTHOR'S ORGANIZ ATION 07/09/2023 [facility] DATE CREATED AUTHOR AUTHOR'S ORGANIZ ATION 11/05/2023 [facility] benigno Reason for Visit (unrecogniz ed section and content) Reason Comments Preoperative Nurse Assessment Surgery sc heduled 11/21/18 Status Reason Specialty Diagnoses / Procedures Referre d By Contact Referred To Contact Diagnoses 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] New Mcclure MD [address] [place] [address] Status Reason Specialty Diagnoses / Procedures Referred By Contact Referred To Contact New Request Diagnoses Hx of total knee arthroplasty, left Procedures XR KNEE LEFT 2 VIEWS XR KNEE LEFT 3 VIEWS Rajinder Green, GULLET SLITTER-GEAR CODING MACHINE OPERATOR [address] [place] [phone] Reason Comments Post Op Visit Reason Comments Leg Swelling Reason Comments Follow-up Post Op Visit Status Reason Specialty Diagnoses / Procedures Referred By Contact Referred To Contact New Request Diagnoses Left knee pain, unspecified chronicity Procedures XR KNEE LEFT 2 VIEWS XR KNEE LEFT 3 VIEWS New Mcclure MD [address] [place], [place] [phone] Reason Comments Follow-up Status Reason Specialty Diagnoses / Procedures Referred By Contact Referred To Contact Pending Review Diagnoses History of total knee arthroplasty, left Procedures XR KNEE LEFT 3 VIEWS New Mcclure MD [address] [place], [place] [phone] Reason Comments Post Op Visit Reason Comments Follow-up Reason Comments Skin Problem Status Reason Specialty Diagnoses / Procedures Referred By Contact Referred To Contact New Request Diagnoses Hx of total knee arthroplasty, left Procedures XR KNEE LEFT 3 VIEWS New Mcclure MD [address] [place] [id number] Status Reason Specialty Diagnoses / Procedures Referred By Contact Referred To Contact New Request Diagnoses Right hip pain Procedures XR HIP WITH PELVIS RIGHT New Mcclure MD [address] [place] [phone] Reason Comments Follow-up Specialty Diagnoses / Procedures Referred By Contac t Referred To Contact Diagnoses Hx of total knee arthroplasty, right Procedures XR KNEE RIGHT 3 VIEWS Rajinder Green, GULLET SLITTER-GEAR CODING MACHINE OPERATOR [address] [place], [place] [phone] Referral ID Status Reason Start Date Expiration Date V isits Requested Visits Authorized [id number] New Request 05/11/2023 06/04/2024 1 1 Specialty Diagnoses / Procedures Referred By Contac t Referred To Contact Diagnoses Hx of total knee arthroplasty, right Procedures XR BONE LENGTH STUDY New Mcclure MD [address] [place] [id number] Referral ID Status Reason Start Date Expiration Date V isits Requested Visits Authorized [id number] New Request 08/30/2023 09/23/2024 1 1 Reason Comments Pain Reason Comments Preoperative Assessment LTKA revision w/ poss extensor mechanism reconstruction 11/29 [facility] Pg *PAT ONLY Specialty Diagnoses / Procedures Referred By Contac t Referred To Contact Diagnoses Preop testing Procedures PREPARE TO TRANSFUSE RED BLOOD CELLS New Mcclure MD [address] [place] [address] Referral ID Status Reason Start Date Expiration Date V isits Requested Visits Authorized [id number] New Request 11/01/2023 11/25/2024 1 1 Care Teams (unrecognized sec tion and content) Anesthesiology Faculty Relationship Specialty Start Date End Date Yulisa Batres MD [address] [place] [address] PCP - General Family Medicine 03/18/23 Anesthesiology Faculty Relationship Specialty Start Date End Date Yulisa Batres MD [address] [place] [id number] PCP - General Family Medicine 03/18/23 Anesthesiology Faculty Relationship Specialty Start Date End Date Yulisa Batres MD [address] [place] [phone] PCP - General Family Medicine 03/18/23 Anesthesiology Faculty Relationship Specialty Start [place] [address] [place] [phone] PCP - General Family Medicine 03/18/23 Anesthesiology Faculty Relationship Specialty Start Date End Date Yulisa Batres MD [address] [place] [phone] PCP - General Family Medicine 03/18/23 Goals (unrecognized section and content) Goals may be documented in a n alternate section FOR RECORDS PERTAINING TO PATIENTS WHO ARE OR HAVE BEEN ENROLLED IN A CHEMICAL DEPENDENCY/SUBSTANCEABUSE PROGRAM, SOME INFORMATION MAY BE OMITTED. This clinical summary was aggregated from multiple sources. Caution should be exercised in using it in the provision of clinical care. This summary normalizes information from multiple sources, and as a consequence, information in this document may materially change the coding, format and clinical context of patient data. In addition, data may be omitted in some cases. CLINICAL DECISIONS SHOULD BE BASED ON THE PRIMARY CLINICAL RECORDS. [facility] [email or web address] [facility]. provides no warranty or guarantee of the accuracy or completeness of information in this document.
[2023-11-11 14:10] LABS: Basophils Percent Auto 0.3 % (0.2-2.0); Eosinophils Absolute Auto 0.1 10^3/uL (0.0-0.7); Eosinophils Percent Auto 1.8 % (0.9-7.0); Hematocrit 34.9 % (36.0-48.0); Hemoglobin 11.1 g/dL (12.0-16.0); Immature Granulocytes Abs Auto 0.01 10^3/uL (0.00-0.03); Immature Granulocytes Pct Auto 0.3 % (0.0-0.5); Lymphocytes Absolute Auto 0.6 10^3/uL (1.2-3.8); Lymphocytes Percent Auto 19.1 % (20.5-60.0); Mean Corpuscular HGB Conc 31.8 g/dL (29.9-35.2); Mean Corpuscular Hemoglobin 33.4 pg (26.7-34.0); Mean Corpuscular Volume 105.1 fL (81.0-99.0); Mean Platelet Volume 8.7 fL (9.5-13.5); Monocytes Absolute Auto 0.4 10^3/uL (0.3-0.8); Monocytes Percent Auto 12.8 % (1.7-12.0); Neutrophils Absolute Auto 2.2 10^3/uL (1.4-6.5); Neutrophils Percent Auto 65.7 % (43.0-75.0); Platelet Count 197 10^3/uL (150-450); Red Blood Count 3.32 10^6/uL (4.20-5.40); Red Cell Distribution Width 13.8 % (11.0-15.0); White Blood Count 3.3 10^3/uL (4.0-11.0)
[2023-11-11 14:12] LABS: Bilirubin Urine NEGATIVE (NEGATIVE); Blood Urine NEGATIVE (NEGATIVE); Clarity Urine CLEAR (CLEAR); Color Urine LT. YELLOW (YELLOW); Glucose Urine UA NEGATIVE (NEGATIVE); Ketones Urine NEGATIVE (NEGATIVE); Leukocyte Esterase Urine NEGATIVE (NEGATIVE); Nitrite Urine NEGATIVE (NEGATIVE); Protein Urine NEGATIVE (NEG/TRACE); Urobilinogen Urine 0.2 EU/dL (0.2-1.0); pH Urine 6.5 (5.0-9.0)
[2023-11-11 14:19] LABS: Bacteria Urine NONE SEEN #/HPF (NONE SEEN); Cast Seen? NONE SEEN #/LPF (NONE SEEN); Crystals Seen? None Seen #/HPF (None Seen); Mucus Urine NONE SEEN (NONE SEEN); RBC Urine NONE SEEN #/HPF (0-2); Squamous Epithelial Cell Urine NONE SEEN #/LPF (NONE/RARE); WBC Urine NONE SEEN #/HPF (NONE SEEN)
[2023-11-11 14:20] LABS: Erythrocyte Sedimentation Rate 12 mm/hr (<=30)
[2023-11-11 14:57] LABS: Alanine Aminotransferase 32 U/L (14-59); Albumin Globulin Ratio 1.1; Albumin Level 3.5 g/dL (3.4-5.0); Alkaline Phosphatase 59 U/L (46-116); Anion Gap 8.9; Aspartate Amino Transferase 27 U/L (15-37); BUN Creatinine Ratio 22.6; Bilirubin Total 0.6 mg/dL (0.2-1.0); Calcium 9.3 mg/dL (8.5-10.1); Carbon Dioxide 30.5 mmol/L (21.0-32.0); Chloride 102 mmol/L (98-107); Estimated GFR (African America >60 (>=60); Estimated GFR (Non-African Ame >60 (>=60); Globulin 3.2 g/dL; Glucose 77 mg/dL (74-106); Potassium 4.4 mmol/L (3.5-5.1); Sodium 137 mmol/L (136-145); Total Protein 6.7 g/dL (6.4-8.2)
[2023-11-12 09:38] LABS: Complement C3, Serum 124 mg/dL (82-167); Complement C4, Serum 30 mg/dL (12-38)
[2023-11-14 16:09] LABS: Complement, Total (CH50) >60 U/mL (>41)
== END 2023-11-11 13:44 | disposition home or self-care (01) ==
LOC: LAB 13:45
PROVIDERS: PCP Family Medicine; Visit Provider Registered Nurse
DX: M06.4 Inflammatory polyarthropathy (principal); M15.0 Primary generalized (osteo)arthritis; Z79.899 Other long term (current) drug therapy
CPT/HCPCS: 36415; 80053; 81001; 85025; 85652; 86160; 86162

== ENCOUNTER 2023-12-30 10:52 | Outpatient (OUT) | payer MEDICARE, BC, SELFPAY ==
[2023-12-30 11:00] VITALS: BP 153/83; PULSE 66; RESP 18; TEMP 36.7; O2SAT 96
--- OUTSIDE RECORDS SUMMARY | 2023-12-30 11:14 | XMS_ITS | CCD ---
Author Name Unknown Address [address] [place] [address] Organization [facility] [place] Care Team Providers Care Federal Mediator Name Role Phone Wood, Star A Unavailable Unavailable Wood, Star A Unavailable Unavailable Wood, Star A Unavailable Unavailable Wood, Star A Unavailable Unavailable FOSTER, NEW Unavailable Unavailable FOSTER, NEW Unavailable Unavailable STEPHEN BROWN Unavailable Unavailable ARLYN VANCE Unavailable Unavailable FOSTER, NWE Unavailable Unavailable DAYRON ZAVALA Unavailable Unavailable Lisy Mendoza Unavailable Lisy Mendoza Primary Care Provider [phone] Lisy Mendoza Primary Care Provider [phone] Lisy Mendoza DO Primary Care Provider Stephen Alicea Unavailable DR YULISA ANDREWS Primary Care Unavailable MISC, DR COBB Admitting Unavailable MISC, DR COBB Attending Unavailable MISC, DR COBB Consulting Unavailable MONACO, DR BANKS Consulting Unavailable MONACO, DR BANKS Admitting Unavailable MONACO, DR BANKS Attending Unavailable HOY ., DR MÁRQUEZ Primary Care Unavailable HOY ., DR MÁRQUEZ Admitting Unavailable HOY ., DR MÁRQUEZ Attending Unavailable HOY ., DR MÁRQUEZ Consulting Unavailable HOY ., DR MÁRQUEZ Primary Care Unavailable KARASIK ., DR SANTIAGO Attending Unavailabl e KARASIK ., DR SANTIAGO Admitting Unavailabl e HOY ., DR MÁRQUEZ Primary Care Unavailable KARASIK ., DR SANTIAGO Consulting Unavailabl e WEST, DR LISY Ambrosio Consulting Unavailable HOY ., DR MÁRQUEZ Primary Care Unavailable MISC, DR COBB Attending Unavailable WEST, DR LISY Ambrosio Consulting Unavailable MISC, DR [...] Unavailable HOY ., DR MÁRQUEZ Consulting Unavailable THIY ., DR MÁRQUEZ Primary Care Unavailable ZIEBER, DR CHARO Charles Consulting Unavailable Yulisa Batres MD Primary Care Provider [phone] Yulisa Batres MD Primary Care Provider [phone] Mary Resendez Admitting Unavailable Mal, Mary Attending Unavailable Hoy, Yulisa M Primary Care Unavailable Monaco, Darren Referring Unavailable MARII HARPER Attending Unavailable CHAD [place] Unavailable HOY, YULISA M Primary Care Unavailable FOSTER, NEW Referring Unavailable FOSTER, NEW Admitting Unavailable FOSTER, NEW Attending Unavailable ABBY, RAJINDER Attending Unavailable ABBY, RAJINDER Referring Unavailable HOY, YULISA M Primary Care Unavailable HOY, YULISA M Primary Care Unavailable FOSTER, NEW Referring Unavailable FOSTER, NEW Attending Unavailable HOY, YULISA M Primary Care Unavailable SELF, SELF Referring Unavailable FOSTER, NEW Attending Unavailable HOY, YULISA M Primary Care Unavailable FOSTER, NEW Referring Unavailable FOSTER, NEW Attending Unavailable ABBY, RAJINDER Attending Unavailable HOY, YULISA M Primary Care Unavailable ABBY, RAJINDER Referring Unavailable HOY, YULISA M Primary Care Unavailable ABBY, RAJINDER Referring Unavailable ABBY, RAJINDER Attending Unavailable LISY MENDOZA Primary Care Unavailable SELF, SELF Referring Unavailable FOSTER, NEW Attending Unavailable FOSTER, NEW Attending Unavailable HOY, YULISA M Primary Care Unavailable FOSTER, NEW Referring Unavailable FOSTER, NEW Attending Unavailable HOY, YULISA M Primary Care Unavailable FOSTER, NEW Referring Unavailable ABBY, RAJINDER Attending Unavailable ABBY, RAJINDER Referring Unavailable HOY, YULISA M Primary Care Unavailable HOY, YULISA M Primary Care Unavailable FOSTER, NEW Referring Unavailable FOSTER, NEW Admitting Unavailable FOSTER, NEW Attending Unavailable Allergies Allergy Classification Reported Allergen(s) Allergy Type Date of Onset Reaction(s) Facility Alendronate (1 source) Alendronate Drug Allergy Abdominal Discomfort, Dyspepsia [facility] Anti-Epileptic Agents (3 sources) gabapentin Drug Allergy Nausea and Vomiting, Blisters [facility] Sulfamethoxazole / Trimethoprim (1 source) Sulfamethoxazole / Trimethoprim Drug Allergy 021 Myalgia [facility] (20 sources) Alendronate Drug Allergy 018 Abdominal Discomfort, Dyspepsia [facility] Work Phone: (20 sources) gabapentin Drug Allergy 018 Nausea and Vomiting [facility] Work Phone: (20 sources) gabapentin Drug Allergy 018 Blisters [facility] Work Phone: (20 sources) OXcarbazepine Drug Allergy 018 Nausea and Vomiting [facility] Work Phone: (8 sources) Ciprofloxacin Drug Allergy 021 Unknown, Unknown Reaction [facility] (7 sources) levoFLOXacin Drug Allergy 023 Unknown [facility]. Other (8 sources) Sulfamethoxazole / Trimethoprim Drug Allergy 021 Myalgia [facility]. Other (1 source) Alendronate Drug Allergy [facility] (1 source) gabapentin Drug Allergy [facility] (1 source) gabapentin Drug Allergy [facility] (1 source) OXcarbazepine Drug Allergy [facility] (2 sources) Alendronate; Translations: [alendronate sodium] Drug Allergy Unknown Reaction [facility] (2 sources) Sulfamethoxazole; Translations: [sulfamethoxazole] Drug Allergy Weakness [facility] (2 sources) Trimethoprim; Translations: [trimethoprim] Drug Allergy Weakness [facility] (1 source) Ciprofloxacin Drug Allergy [facility] (1 source) gabapentin Drug Allergy [facility] (1 source) OXcarbazepine Drug Allergy [facility] (4 sources) Oxcarbazepine Propensity to adverse reactions to drug 018 Nausea and Vomiting [facility] Medications Current Medications Medication Drug Class(es) Dates Sig (Normalized) Sig (Original) acetaminophen 325 mg oral tablet (20 sources) Start: 11-29-2023 take 2 tablets by mouth every four hours as needed Acetaminophen 325 MG tablet Take 2 tablets by mouth every 4 hours as needed for Mild Pain. 50 tablet 1 11/29/2023 Active Start: 04-26-2023 take 2 tablets by mo uth every four hours as needed Acetaminophen 325 [...] daily.. Active amoxicillin 500 mg oral capsule (20 sources) Penicillin-class Antibacterial Start: 12-22-2023 End: 12-22-2024 Amoxicillin 500 MG capsule Take 4 capsules 1 hour before procedure 8 capsule 1 12/22/2023 12/22/2024 Active Start: 11-19-2020 End: 11-19-2021 amoxicillin 500 MG capsule T ian 4 capsules 1 hour before procedure 8 capsule 1 11/19/2020 11/19/2021 Active Start: 03-01-2019 End: 03-01-2020 amoxicillin 500 MG Cap capsu le Take 4 capsules 1 hour before procedure 8 capsule 1 03/01/2019 03/01/2020 Active amoxicillin 250 MG capsule Take 2 capsules by mouth every 8 hours. 4 capsules 1 hour before procedure Active take 4 capsules by m outh every eight hours amoxicillin 250 MG capsule Take 500 mg by mouth every 8 hours. 4 capsules 1 hour before procedure 0 Active apixaban 2.5 mg oral tablet (19 sources) Factor Xa Inhibitor Start: 11-29-2023 End: 01-03-2024 take 1 tablet by mouth every twelve hours apixaban 2.5 MG tablet Take 1 tablet by mouth every 12 hours. This medication is for blood clot prevention 70 tablet 11/29/2023 01/03/2024 Active Start: 04-26-2023 End: 05-31-2023 take 1 tablet [...] tablet Take 1 tablet by mouth daily. Active Ascorbic Acid (V itamin C) 1000 MG tablet Take 500 mg by mouth daily. 0 Active biotin 1 mg chewable tablet (10 sources) Start: 05-07-2021 take 1000 ug by mouth once daily Biotin Active 1000 MCG PO Daily May 07, 2021 12:00am Start: 10-01-2020 take 99782 ug by thuy twice daily Biotin Active 31848 MCG PO Twice daily October 01, 2020 1:00am Biotin 1 MG caps ule Take by mouth daily. Active take 2 tablets by mo [facility] twice daily Biotin 42517 MCG Tab Take 2 tablets by mouth [...] 500-5 MG-MCG tablet Take by mouth daily. Active take 2.5 tablets by mouth once daily at lunch Calcium Carb-Cholecalciferol (CALCIUM 60 0 + D) 600-200 MG-UNIT Tab tablet Take 2.5 tablets by mouth Daily (with lunch). 0 Active carvedilol 25 mg oral tablet (7 sources) alpha-Adrenergic Heidi, beta-Adrenergic Heidi Start: 11-14-2023 take 1 tablet by mouth twice daily carveDILOL 25 MG tablet Take 1 tablet by mouth 2 times daily. 11/14/2023 Active Start: 12-21-2022 take 1 tablet by thuy th twice daily carveDILOL 12.5 MG tablet Take 1 tablet by mouth 2 times daily. 0 12/21/2022 Active Chondroitin Sulfates / Gluco samine (20 sources) Glucosamine-David droitin (GLUCOSAMINE CHONDR COMPLEX [...] 1 07/01/2018 Active D-BIOTIN (18 sources) Biotin 66382 MCG Tab take 2 tablets by mouth 2 times daily.. 0 Active Biotin 08744 MCG Tab take 2 tablets by mouth [...] mg diclofenac sodium 0.01 mg/mg topical gel (15 sources) Nonsteroidal Anti-inflammatory Drug Start: 10-01-2020 Diclofenac Sodium 1 % Gel gel Diclofenac Diclofenac Sodium Active 4 GM Topical Four times daily October 01, 2020 10:38am 10-01-2020 [facility] ([id number]) 10/01/2020 Active Start: 10-01-2020 Diclofenac Sod ium 1 % Gel gel Diclofenac Diclofenac Sodium Active 4 GM Topical Four times daily October 01, 2020 10:38am 10-01-2020 [facility] ([id number]) 0 10/01/2020 Active Start: 10-01-2020 apply 4 g topically four times daily Diclofenac Sodium Active 4 GM TOPICAL Four times daily October 01, 2020 1:00am Start: 01-09-2018 End: 11-24-2018 VOLTAREN 1 % Gel gel 1 Appli cation as needed. 01/09/2018 11/24/2018 Discontinued docusate sodium 100 mg oral capsule (20 sources) Start: 11-29-2023 take 1 capsule by mouth twice daily Docusate 100 MG capsule Take 1 capsule by mouth 2 times daily. 60 capsule 11/29/2023 Active Start: 04-26-2023 take 1 capsule by mo ut twice daily Docusate 100 MG capsule Take 1 capsule by mouth 2 times daily. Hold for loose stools. 60 capsule 0 04/26/2023 Active Start: 07-18-2017 End: 11-24-2018 take 1 capsule by mouth twice daily docusate 100 MG Cap capsule Take 1 capsule by mouth 2 times daily. 60 capsule 0 11/21/2018 Active docusate sodium 50 mg / sennosides, long-term 8.6 mg oral tablet (1 source) Start: 11-21-2018 senna-docusate (SENOKOT-S) 8.6-50 MG per tablet 2 tablet doxazosin 4 mg oral tablet (7 sources) alpha-Adrenerg ic Heidi Start: 12-30-2022 take 1 tablet by mouth once daily Doxazosin 4 MG tablet Take 1 tablet by mouth daily. 12/30/2022 Active Fish Oils (1 source) take [...] Once a day for 30 day(s) Active Glucosamine-Chondro it-Vit C-Mn (Glucosamine 1500 Complex) capsule (2 sources) Glucosamine-David droit -Vit C-Mn (Glucosamine 1500 Complex) capsule Take by mouth daily. Active Glucosamine-David droit-Vit C-Mn (Glucosamine 1500 Complex) capsule Take by mouth daily. 0 Active Hgayqzqeenh-Zgb-Pmvvveidy-Vi tc (Glucosamine Complex-Msm) Capsule (1 source) Start: 10-01-2020 take 1 capsule by mouth once daily Kituyazlrcz-Jru-Ryqqsmoai-Vitc (Glucosamine Complex-Msm) Capsule Active 1 CAP PO Daily October 01, 2020 1:00am 1 ml hydrALAZINE hydrochlori de 20 mg/ml injection (1 source) Art pieter viral r Vas marcelo lat or Start: 11-21-2018 take 10 mg intraveno us route every six hours as needed hydrALAzine (APRESOLINE) injection 10 mg hydroCHLOROthiazide 25 mg / triamterene 37.5 mg oral tablet (20 sources) Pot ass ium -sp diego ng Diu ret ic, Thi dayne de Diu ret ic Start: 05-07-2021 take 1 tablet by mouth once daily Triamterene-Hydrochlorothiazid Active 1 TAB PO Daily May 07, 2021 12:00am Start: 11-21-2018 take 1 tablet by thuy th once daily 1 tablet, Oral, DAILY, First dose on Tue11/21/18 at 1230, Until Discontinued triamterene-hydr ochlorothiazide 37.5-25 MG Cap Take 1 capsule by mouth as needed (edema). Active Triamterene-HCTZ 37.5-25 MG Oral for 90 Active 1 ml HYDROmorphone hydrochloride 1 mg/ml cartridge (1 source) Opioid Agonist Start: 11-21-2018 take 0.5 mg intravenous route every four hours as needed HYDROmorphone (DILAUDID) injection 0.5 mg hydroxychloroquine sulfate 200 mg oral tablet (17 sources) Antimalarial, Antirheumatic Agent Start: 10-01-2020 End: 11-24-2018 take 200 mg by mouth twice daily Hydroxychloroquine Active 200 MG PO Twice daily October 01, 2020 1:00am take 1 tablet by mouth twice anand ly Hydroxychloroquine 200 MG tablet Take 1 tablet by mouth 2 times daily. Active leflunomide 20 mg oral tablet (15 sources) Antirheumatic Agent Start: 10-01-2020 take 20 [...] tablet Take 1 tablet by mouth daily. Active meloxicam 7.5 mg oral tablet (6 sources) Nonsteroidal Anti-inflammatory Drug Start: 11-29-2023 take 1 tablet by mouth once daily at mealtime Meloxicam 7.5 MG tablet Take 1 tablet by mouth daily. Take with food. 30 tablet 11/29/2023 Active Start: 04-26-2023 take 1 tablet by thuy th once daily at mealtime Meloxicam 7.5 MG tablet Take 1 tablet by mouth daily. Take with food. 30 tablet 0 04/26/2023 Active methotrexate 2.5 mg oral tablet (10 sources) Folate Analog Metabolic Inhibitor Start: 10-03-2020 take 5 tablets by mouth every week methotrexate 2.5 MG tablet TAKE 5 TABLETS BY MOUTH ONCE EVERY WEEK 0 10/03/2020 Active Start: 10-01-2020 Methotrexate S odium Active 12.5 MG PO Q7D October 01, 2020 1:00am 6 one day a week on Tuesday End: 11-24-2018 methotrexate 2.5 MG tablet e very 7 days. Active methylPREDNISolone 4 mg oral tablet (3 sources) Corticosteroid Start: 02-21-2023 methylPREDNIso lone 4 MG Tab Therapy Pack tablet as needed. 02/21/2023 Active Start: 02-21-2023 methylPREDNIso lone 4 [...] 2020 1:00am predniSONE 5 mg oral tablet (8 sources) Start: 05-07-2021 Prednisone Act damian 5 MG PO Twice daily May 07, 2021 12:00am Dr Monaco placed on. 1-2 as needed per day pregabalin 25 mg oral capsule (8 sources) Start: 02-15-2023 pregabalin 25 MG capsule every 12 hours. 02/15/2023 Active Pregabalin 25 MG Oral for 30 Active psyllium 520 mg oral capsule (20 sources) Start: 05-07-2021 Psyllium Husk (Metamucil) 0.52 gram Capsule Active [...] 1 enema sucralfate 1000 mg oral tablet (6 sources) Aluminum Complex Start: 11-29-2023 take 1 tablet by mouth twice daily Sucralfate 1 g tablet Take 1 tablet by mouth 2 times daily. 60 tablet 11/29/2023 Active Start: 04-26-2023 take 1 tablet by thuy th twice daily Sucralfate 1 g tablet Take 1 tablet by mouth 2 times daily. While on NSAID therapy 84 tablet 0 04/26/2023 Active therapeutic multivitamin-minerals tablet (6 sources) Start: 11-29-2023 take 1 tablet by mouth at bedtime therapeutic multivitamin-minerals tablet Take 1 tablet by mouth at bedtime. 30 tablet 11/29/2023 Active Start: 04-26-2023 take 1 tablet by thuy th at bedtime therapeutic multivitamin-minerals tablet Take 1 tablet by mouth at bedtime. 30 tablet 0 04/26/2023 Active thioctic acid 200 mg oral tablet (3 sources) Start: 10-01-2020 take 200 mg by mouth once daily Alpha Lipoic Acid Active 200 MG PO Daily October 01, 2020 1:00am Alpha-Lipoic Aci d 200 MG capsule 1 capsule daily. Active tiZANidine 4 mg oral tablet (8 sources) Central alpha-2 Adrenergic Agonist take 1 tablet by mouth every six hours as needed tiZANidine 4 MG tablet Take 1 tablet by mouth every 6 hours as needed for Muscle spasms. Active traMADol hydrochloride 50 mg oral tablet (13 sources) Opioid Agonist Start: 3 take 1 tablet by mouth three times daily as needed for pain traMADol 50 MG tablet Take 1 tablet by mouth 3 times daily as needed for Pain. 07/27/2023 Active Start: 10-01-2020 take 50 mg [...] by mouth. 0 Active Turmeric Root Extract (3 sources) Start: 05-07-2021 take 500 mg by mouth once daily Turmeric Root Extract Active 500 MG PO Daily May 07, 2021 12:00am TURMERIC PO as d irected Orally Active TURMERIC PO as d irected Orally 0 [...] 1 tablet by mouth every 30 days. 09/10/2016 Active 1 ml ketorolac tromethamine 15 [...] Problem Classification Problem Date Documented Date Episodic/Chronic Complication of device; implant or graft (2 sources) Other mechanical complication of internal left knee prosthesis, initial encounter; Translations: [Other mechanical complication of internal left knee prosthesis, initial encounter] Onset: 11-29-2023 Episodic Deficiency and other anemia (1 source) Iron deficiency anemia; Translations: [Iron deficiency anemia, unspecified] 05-07-2021 Episodic Diseases of white blood cells (1 source) Leukopenia; Translations: [Decreased white blood cell count, unspecified] 05-07-2021 Chronic Disorders of lipid metabolism (10 sources) Hyperlipidemia, unspecified; Translations: [Hyperlipidemia] Onset: 10-18-2022 [...] D DEFICIENCY UNSPECIFIED] Onset: 10-26-2022 Chronic Osteoarthritis (10 sources) Primary generalized (osteo)arthritis; Translations: [Osteoarthritis of right knee joint] Onset: 02-12-2023 04-26-2023 Chronic Osteoporosis (4 sources) Age-related osteoporosis without current pathological fracture; Translations: [AGE-REL OSTEOPOR W/O CURR PATH FX] Onset: 08-27-2022 Chronic Other aftercare (1 source) Other [facility] (current[facility] drug therapy; Translations: [OTH [facility] CURRENT DRUG THERAPY] Onset: 02-12-2023 Episodic Other circulatory disease (6 sources) Raynaud's phenomenon; Translations: [Raynaud's syndrome without gangrene] Onset: 04-20-2023 04-20-2023 Chronic Other connective tissue disease (6 sources) History of total knee arthroplasty; Translations: [Presence of unspecified artificial knee joint] Onset: 11-30-2023 11-30-2023 Chronic Other connective tissue disease (2 sources) History of right total knee replacement; Translations: [Presence of right artificial knee joint] 05-11-2023 Chronic Other connective tissue disease (1 source) History of left total knee replacement; Translations: [Presence of left artificial knee joint] 08-30-2023 Chronic Other connective tissue disease (2 sources) Presence of left artificial knee joint; Translations: [Presence of left artificial knee joint] Onset: 12-22-2023 Chronic Other connective tissue disease (2 sources) Presence of unspecified artificial knee joint; Translations: [Presence of unspecified artificial knee joint] Onset: 11-29-2023 Chronic Other connective tissue disease (2 sources) Presence of right artificial knee joint; Translations: [Presence of right artificial knee joint] Onset: 09-01-2023 Chronic Other connective tissue disease (1 source) Disorder of tendon; Translations: [Extensor mechanism malalignment] Episodic Other hematologic conditions (1 source) 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; Translations: [Other specified diseases of blood and blood-forming organs] 10-01-2020 Chronic Other nervous system disorders (2 sources) Other acute postprocedural pain; Translations: [Other acute postprocedural pain] Onset: 11-29-2023 Episodic Other non-traumatic joint disorders (2 sources) Knee pain; Translations: [Postoperative pain of left knee] Episodic Other non-traumatic joint disorders (20 sources) Pain in left knee; Translations: [Pain in left knee] Onset: 11-21-2018 11-21-2018 Episodic Other non-traumatic joint disorders (2 sources) [...] Systemic lupus erythematosus and connective tissue disorders (11 sources) Systemic involvement of connective tissue, unspecified; 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] Onset: 02-08-2023 Chronic Thyroid disorders (6 sources) Hyperthyroidism; Translations: [Thyrotoxicosis, unspecified without thyrotoxic crisis or storm] Onset: 04-20-2023 04-20-2023 Chronic Unclassified (2 sources) Preprocedural examination done; Translations: [Pre-op exam] Unclassified (1 source) History of left total knee replacement; Translations: [Hx of total knee arthroplasty, left] Unclassified (1 source) Decreased white blood cell count, unspecified; Translations: [Decreased white blood cell count, unspecified] Onset: 05-07-2021 Urinary tract infections (6 sources) Chronic cystitis; Translations: [Other chronic cystitis [...] bone density and structure, unspecified site; Translations: [OT D/O BONE DEN STRUCT UNS SITE] Onset: 09-01-2022 Episodic Other circulatory disease (1 source) Decreased breath sounds; Translations: [Decreased breath sounds] Episodic Other connective tissue disease (20 sources) Rupture of patellar tendon; Translations: [Patellar tendon rupture] Onset: 2017 2017 Episodic Other connective tissue disease (20 sources) Synovial hernia; Translations: [Other specified disorders of synovium and tendon, unspecified site] Onset: 11-21-2018 11-21-2018 Episodic Other non-traumatic joint [...] 09-05-2022 Episodic Skin and subcutaneous tissue infections (6 sources) Cellulitis of left axilla; Translations: [Cellulitis of left axilla] Onset: 04-20-2023 04-20-2023 Episodic Spondylosis; intervertebral disc disorders; other back problems (2 sources) Sciatica; Translations: [Sciatica, left side] Onset: 08-31-2021 Resolved: 08-31-2021 Episodic Sprains and strains (10 sources) Strain of other muscle(s) and tendon(s) at lower leg level, unspecified leg, subsequent encounter; Translations: [Rupture of patellar tendon] Onset: 07-18-2017 2017 Episodic Unclassified (2 sources) Onset: 11-24-2018 Resolved: 12-02-2023 11-24-2018 Results Test Name Value Interpretation Reference Range Facility CBCon 12-02-2023 ABSOLUTE BAS 0.0 10*3/uL Normal 0.0-0.2 [facility] Comment on above: Performed By: #### A CBC #### Testing performed at [address] [place] [address] ABSOLUTE EOS 0.0 10*3/uL Normal 0.0-0.7 [facility] Comment on above: Performed By: #### A CBC #### Testing performed at [address] [address] ABSOLUTE NEUTROPHIL COUNT 2.4 10*3/uL Normal 1.4-6.5 [facility] Comment on above: Performed By: #### A CBC #### Testing performed at [address] [address] Basophils/100 WBC (Bld) 0.3 % Normal 0.0-2.0 [facility] Comment on above: Performed By: #### A CBC #### Testing performed at [address] [address] DTYPE AUTO DIFF Normal [facility] Comment on above: Performed By: #### A CBC #### Testing performed at [address] [address] Eosinophils/100 WBC (Bld) 0.9 % Normal 0.0-11.0 [facility] Comment on above: Performed By: #### A CBC #### Testing performed at [address] [address] Lymphocytes (Bld) [#/Vol] 0.6 10*3/uL Low 1.2-3.4 [facility] Comment on above: Performed By: #### A CBC #### Testing performed at [address] [address] Lymphocytes/100 WBC (Bld) 17.6 % Low 20.0-55.0 [facility] Comment on above: Performed By: #### A CBC #### Testing performed at [address] [address] Monocytes (Bld) [#/Vol] 0.5 10*3/uL Normal 0.0-0.7 [facility] Comment on above: Performed By: #### A CBC #### Testing performed at [address] [address] Monocytes/100 WBC (Bld) 14.6 % High 0.0-10.0 [facility] Comment on above: Performed By: #### A CBC #### Testing performed at [address] [address] Neutrophils/100 WBC (Bld) 66.6 % Normal 37.0-75.0 [facility] Comment on above: Performed By: #### A CBC #### Testing performed at [address] [address] Erythrocyte distribution width (RBC) [Ratio] 14.2 % Normal 11.5-14.5 [facility] Comment on above: Performed By: #### A CBC #### Testing performed at [address] [address] Hematocrit (Bld) [Volume fraction] 27.6 % Low 36.0-48.0 [facility] Comment on above: Performed By: #### A CBC #### Testing performed at [address] [address] Hemoglobin (Bld) [Mass/Vol] 9.2 g/dL Low 12.0-16.0 [facility] Comment on above: Performed By: #### A CBC #### Testing performed at [address] [address] MCH (RBC) [Entitic mass] 34.3 pg Normal 26.0-35.0 [facility] Comment on above: Performed By: #### A CBC #### Testing performed at [address] [address] MCHC (RBC) [Mass/Vol] 33.4 g/dL Normal 27.0-37.0 [facility] Comment on above: Performed By: #### A CBC #### Testing performed at [address] [address] MCV (RBC) [Entitic vol] 102.5 fL High 80.0-100.0 [facility] Comment on above: Performed By: #### A CBC #### Testing performed at [address] [address] Platelet mean volume (Bld) [Entitic vol] 7.3 fL Low 7.4-11.0 [facility] Comment on above: Performed By: #### A CBC #### Testing performed at [address] [address] Platelets (Bld) [#/Vol] 165 10*3/uL Normal 130-400 [facility] Comment on above: Performed By: #### A CBC #### Testing performed at [address] [address] RBC (Bld) [#/Vol] 2.69 10*6/uL Low 4.0-5.4 [facility] Comment on above: Performed By: #### A CBC #### Testing performed at [address] [address] WBC (Bld) [#/Vol] 3.6 10*3/uL Normal 3.6-11.0 [facility] Comment on above: Performed By: #### A CBC #### Testing performed at [address] [address] AFB SMEARon 12-01-2023 ACID FAST SMEAR Negative Normal [facility] Comment on above: Result Comment: PERF ORMED AT [facility] Performed By: #### L AFBSC #### Testing performed at [address] [address] Testing performed at [facility] [address] [place] [address] [place] [address] BMP FASTINGon 12-01-2023 Anion gap [Moles/Vol] 7 mmol/L Normal [facility] Comment on above: Performed By: #### A CBC, BMPF ####Testing performed at [address] [address] Calcium [Mass/Vol] 8.4 mg/dL Normal 8.4-10.2 [facility] Comment on above: Performed By: #### A CBC, BMPF ####Testing performed at [address] [address] Chloride [Moles/Vol] 106 mmol/L Normal 98-107 [facility] Comment on above: Result Comment: Plea se note: Triglyceride levels of 600mg/dL or higher may positively bias chloride results by approximately 2.1 mmol Performed By: #### A CBC, BMPF ####Testing performed at [address] [address] CO2 [Moles/Vol] 23 mmol/L Normal 22-30 [facility] Comment on above: Performed By: #### A CBC BMPF ####Testing performed at [place] [id number] Creatinine [Mass/Vol] 0.50 mg/dL Low 0.70-1.20 [facility] Comment on above: Performed By: #### A CBC BMPF ####Testing performed at [address] [address] EST. GFR, 157 ml/min/1.73sq.m [facility] Comment on above: Performed By: #### A CBC BMPF ####Testing performed at [place] [id number] EST. GFR,Non 130 ml/min/1.73sq.m [facility] Comment on above: Performed By: #### A CBC BMPF ####[place] [address] GFR Information Average GFR for 70+ years old = 75. Normal [facility] Comment on above: Result Comment: Retail Loss Prevention Investigator arnie Kidney disease, GFR = <60. Kidney failure, GFR = <15. The GFR estimate is not adjusted for extreme body surface area or acute process, nor has it been validated for women or ethnic groups other than and . Performed By: #### A CBC, BMPF ####Testing performed at [place] [id number] Glucose [Mass/Vol] 125 mg/dL High 70-100 [facility] Comment on above: Result Comment: NORMAL <100 mg/dL PREDIABETES 101-126 mg/dL DIABETES 126 mg/dL or higher Performed By: #### A CBC BMPF ####Testing performed at [place] [id number] Potassium [Moles/Vol] 3.4 mmol/L Low 3.5-5.1 [facility] Comment on above: Performed By: #### A CBC, BMPF ####Testing performed at [place] [id number] Sodium [Moles/Vol] 136 mmol/L Low 137-145 [facility] Comment on above: Performed By: #### A CBC, BMPF ####Testing performed at [address] [address] Urea nitrogen [Mass/Vol] 15 mg/dL Normal 7-20 [facility] Comment on above: Performed By: #### A CBC, BMPF ####Testing performed at [address] [address] CBCon 12-01-2023 ABSOLUTE BAS 0.0 10*3/uL Normal 0.0-0.2 [facility] Comment on above: Performed By: #### T SCC #### Testing performed at [address] [address] ABSOLUTE EOS 0.0 10*3/uL Normal 0.0-0.7 [facility] Comment on above: Performed By: #### T SCC #### Testing performed at [address] [address] ABSOLUTE NEUTROPHIL COUNT 4.1 10*3/uL Normal 1.4-6.5 [facility] Comment on above: Performed By: #### T SCC #### Testing performed at [address] [address] Basophils/100 WBC (Bld) 0.1 % Normal 0.0-2.0 [facility] Comment on above: Performed By: #### T SCC #### Testing performed at [address] [address] DTYPE AUTO DIFF Normal [facility] Comment on above: Performed By: #### T SCC #### Testing performed at [address] [address] Eosinophils/100 WBC (Bld) 0.0 % Normal 0.0-11.0 [facility] Comment on above: Performed By: #### T SCC #### Testing performed at [address] [address] Erythrocyte distribution width (RBC) [Ratio] 14.3 % Normal 11.5-14.5 [facility] Comment on above: Performed By: #### T SCC #### Testing performed at [address] [place] [address] Hematocrit (Bld) [Volume fraction] 30.1 % Low 36.0-48.0 [facility] Comment on above: Performed By: #### T SCC #### Testing performed at [address] [place] [address] Hemoglobin (Bld) [Mass/Vol] 10.3 g/dL Low 12.0-16.0 [facility] Comment on above: Performed By: #### T SCC #### Testing performed at [address] [address] Lymphocytes (Bld) [#/Vol] 0.4 10*3/uL Low 1.2-3.4 [facility] Comment on above: Performed By: #### T SCC #### Testing performed at [address] [place] [address] Lymphocytes/100 WBC (Bld) 8.1 % Low 20.0-55.0 [facility] Comment on above: Performed By: #### T SCC #### Testing performed at [address] [place] [address] MCH (RBC) [Entitic mass] 34.6 pg Normal 26.0-35.0 [facility] Comment on above: Performed By: #### T SCC #### Testing performed at [address] [place] [address] MCHC (RBC) [Mass/Vol] 34.2 g/dL Normal 27.0-37.0 [facility] Comment on above: Performed By: #### T SCC #### Testing performed at [address] [place] [address] MCV (RBC) [Entitic vol] 101.3 fL High 80.0-100.0 [facility] Comment on above: Performed By: #### T SCC #### Testing performed at [address] [place] [address] Monocytes (Bld) [#/Vol] 0.4 10*3/uL Normal 0.0-0.7 [facility] Comment on above: Performed By: #### T SCC #### Testing performed at [address] [place] [address] Monocytes/100 WBC (Bld) 8.1 % Normal 0.0-10.0 [facility] Comment on above: Performed By: #### T SCC #### Testing performed at [address] [address] Neutrophils/100 WBC (Bld) 83.7 % High 37.0-75.0 [facility] Comment on above: Performed By: #### T SCC #### Testing performed at [address] [address] Platelet mean volume (Bld) [Entitic vol] 7.3 fL Low 7.4-11.0 [facility] Comment on above: Performed By: #### T SCC #### Testing performed at [address] [address] Platelets (Bld) [#/Vol] 181 10*3/uL Normal 130-400 [facility] Comment on above: Performed By: #### T SCC #### Testing performed at [address] [address] RBC (Bld) [#/Vol] 2.97 10*6/uL Low 4.0-5.4 [facility] Comment on above: Performed By: #### T SCC #### Testing performed at [address] [address] WBC (Bld) [#/Vol] 4.9 10*3/uL Normal 3.6-11.0 [facility] Comment on above: Performed By: #### T SCC #### Testing performed at [address] [address] BMP FASTINGon 11-30-2023 Anion gap [Moles/Vol] 3 mmol/L Normal [facility] Comment on above: Performed By: #### B MPF, ACBC ####Testing performed at [address] [address] Calcium [Mass/Vol] 7.7 mg/dL Low 8.4-10.2 [facility] Comment on above: Performed By: #### B MPF, ACBC ####Testing performed at [address] [address] Chloride [Moles/Vol] 106 mmol/L Normal 98-107 [facility] Comment on above: Result Comment: Sriram arriaga note: Triglyceride levels of 600mg/dL or higher may positively bias chloride results by approximately 2.1 mmol Performed By: #### B YG, HERMELINDO ####Testing performed at [address] [address] CO2 [Moles/Vol] 24 mmol/L Normal 22-30 [facility] Comment on above: Performed By: #### B MPF, ACJOHN ####Testing performed at [place] [id number] Creatinine [Mass/Vol] 0.60 mg/dL Low 0.70-1.20 [facility] Comment on above: Performed By: #### B YG, ACJOHN ####Testing performed at [address] [address] EST. GFR, 127 ml/min/1.73sq.m [facility] Comment on above: Performed By: #### B RACHELF, ACJOHN ####Testing performed at [address] [address] EST. GFR,Non 105 ml/min/1.73sq.m [facility] Comment on above: Performed By: #### B YG, ACJOHN ####Testing performed at [address] [address] GFR Information Average GFR for 70+ years old = 75. Normal [facility] Comment on above: Result Comment: Retail Loss Prevention Investigator arnie Kidney disease, GFR = <60. Kidney failure, GFR = <15. The GFR estimate is not adjusted for extreme body surface area or acute process, nor has it been validated for women or ethnic groups other than and . Performed By: #### B MPF, ACJOHN ####Testing performed at [address] [address] Glucose [Mass/Vol] 111 mg/dL High 70-100 [facility] Comment on above: Result Comment: NORMAL <100 mg/dL PREDIABETES 101-126 mg/dL DIABETES 126 mg/dL or higher Performed By: #### B MPF, ACBC ####Testing performed at [address] [address] Potassium [Moles/Vol] 3.6 mmol/L Normal 3.5-5.1 [facility] Comment on above: Performed By: #### B MPF, ACBC ####Testing performed at [address] [address] Sodium [Moles/Vol] 133 mmol/L Low 137-145 [facility] Comment on above: Performed By: #### B MPF, ACBC ####Testing performed at [address] [address] Urea nitrogen [Mass/Vol] 12 mg/dL Normal 7-20 [facility] Comment on above: Performed By: #### B MPF, ACBC ####Testing performed at [address] [address] CBCon 11-30-2023 ABSOLUTE BAS 0.0 10*3/uL Normal 0.0-0.2 [facility] Comment on above: Performed By: #### B MPF, ACBC ####Testing performed at [address] [address] ABSOLUTE EOS 0.0 10*3/uL Normal 0.0-0.7 [facility] Comment on above: Performed By: #### B MPF, ACBC ####Testing performed at [address] [address] ABSOLUTE NEUTROPHIL COUNT 4.6 10*3/uL Normal 1.4-6.5 [facility] Comment on above: Performed By: #### B MPF, ACBC ####Testing performed at [address] [address] Basophils/100 WBC (Bld) 0.0 % Normal 0.0-2.0 [facility] Comment on above: Performed By: #### B MPF, ACBC ####Testing performed at [address] [address] DTYPE AUTO DIFF Normal [facility] Comment on above: Performed By: #### B MPF, ACBC ####Testing performed at [address] [address] Eosinophils/100 WBC (Bld) 0.0 % Normal 0.0-11.0 [facility] Comment on above: Performed By: #### B MPF, ACBC ####Testing performed at [address] [address] Lymphocytes (Bld) [#/Vol] 0.4 10*3/uL Low 1.2-3.4 [facility] Comment on above: Performed By: #### B MPF, ACBC ####Testing performed at [address] [address] Lymphocytes/100 WBC (Bld) 7.5 % Low 20.0-55.0 [facility] Comment on above: Performed By: #### B MPF, ACBC ####Testing performed at [address] [address] Monocytes (Bld) [#/Vol] 0.4 10*3/uL Normal 0.0-0.7 [facility] Comment on above: Performed By: #### B MPF, ACBC ####Testing performed at [address] [address] Monocytes/100 WBC (Bld) 7.3 % Normal 0.0-10.0 [facility] Comment on above: Performed By: #### B MPF, ACBC ####Testing performed at [address] [address] Neutrophils/100 WBC (Bld) 85.2 % High 37.0-75.0 [facility] Comment on above: Performed By: #### B MPF, ACBC ####Testing performed at [address] [address] Erythrocyte distribution width (RBC) [Ratio] 14.2 % Normal 11.5-14.5 [facility] Comment on above: Performed By: #### B MPF, ACBC ####Testing performed at [address] [address] Hematocrit (Bld) [Volume fraction] 30.2 % Low 36.0-48.0 [facility] Comment on above: Performed By: #### B MPF, ACBC ####Testing performed at [address] [address] Hemoglobin (Bld) [Mass/Vol] 10.2 g/dL Low 12.0-16.0 [facility] Comment on above: Performed By: #### B MPF, ACBC ####Testing performed at [address] [address] MCH (RBC) [Entitic mass] 34.1 pg Normal 26.0-35.0 [facility] Comment on above: Performed By: #### B MPF, ACBC ####Testing performed at [address] [address] MCHC (RBC) [Mass/Vol] 33.7 g/dL Normal 27.0-37.0 [facility] Comment on above: Performed By: #### B MPF, ACBC ####Testing performed at [address] [address] MCV (RBC) [Entitic vol] 101.3 fL High 80.0-100.0 [facility] Comment on above: Performed By: #### B MPF, ACBC ####Testing performed at [address] [address] Platelet mean volume (Bld) [Entitic vol] 7.3 fL Low 7.4-11.0 [facility] Comment on above: Performed By: #### B MPF, ACBC ####Testing performed at [address] [address] Platelets (Bld) [#/Vol] 180 10*3/uL Normal 130-400 [facility] Comment on above: Performed By: #### B MPF, ACBC ####Testing performed at [address] [address] RBC (Bld) [#/Vol] 2.99 10*6/uL Low 4.0-5.4 [facility] Comment on above: Performed By: #### B MPF, ACBC ####Testing performed at [address] [address] WBC (Bld) [#/Vol] 5.4 10*3/uL Normal 3.6-11.0 [facility] Comment on above: Performed By: #### B HEREMLINDO RONQUILLO ####Testing performed at [address] [address] XR KNEE LEFT 1-2 VIEWSon XR KNEE LEFT 1-2 VIEWS CLINICAL HISTORY: Left total knee arthroplasty revision. LEFT KNEE 2 VIEWS: COMPARISON: 03/18/2023. FINDINGS/IMPRESSION: 1. Interval revision longstem left total knee arthroplasty has been performed, without visualized hardware complications. Expected surrounding postoperative gas bubbles and soft tissue swelling are noted, as well as a surgical drain in the lateral aspect of the knee. Overlying anterior skin renae are noted. 2. No fracture, malalignment, or other acute bony abnormality is seen. Normal [facility] AFB SMEARon 11-29-2023 ACID FAST CULTURE PENDING Normal [facility] Comment on above: Performed By: #### L AFBSC #### Testing performed at [address] [address] Testing performed at [facility] [address] [facility] [place] [address] [place] [address] ANAEROBIC CULTUREon 11-29-19 ANAEROBIC CULTURE SPECIMEN DESCRIPTION LEFT KNEE CULTURE NO GROWTH 5 DAYS * Result Note: Testing performed at [place] [address] * REPORT STATUS 12/04/2023 * Result Note: FINAL * Normal [facility] Comment on above: Performed By: #### T SCC #### Testing performed at [address] [address] TISSUE CULTUREon 11-29-2023 TISSUE CULTURE SPECIMEN DESCRIPTION LEFT KNEE GRAM SMEAR NO * Result Note: WBC'S SEEN * * Result Note: NO ORGANISMS SEEN * CULTURE NO GROWTH 5 DAYS * Result Note: Testing performed at [place] [address] * REPORT STATUS 12/04/2023 * Result Note: FINAL * Normal [facility] Comment on above: Performed By: #### T ISC #### Testing performed at [address] [address] [place] [address] TYPE AND SCREEN CROSSMATCH C ONVERTIBLEon 11-29-2023 TYPE AND SCREEN CROSSMATCH CONVERTIBLE UNITS ORDERED 2 WORKUP EXPIRES 12/02/2023,2359 ABO/RH(D) O POSITIVE ANTIBODY SCREEN NEGATIVE ARM BAND NUMBER [id number] UNIT NUMBER [id number] BLOOD COMPONENT TYPE LEUKORED RBC UNIT DIVISION 00 STATUS OF UNIT REL FROM ALLOC TRANSFUSION STATUS OK TO TRANSFUSE CROSSMATCH RESULT Electronically Compatible UNIT NUMBER [id number] BLOOD COMPONENT TYPE LEUKORED RBC UNIT DIVISION 00 STATUS OF UNIT REL FROM ALLOC TRANSFUSION STATUS OK TO TRANSFUSE CROSSMATCH RESULT Electronically Compatible Normal [facility] Comment on above: Performed By: #### T SCC #### Testing performed at [address] [address] WOUND CULTUREon 11-29-2023 WOUND CULTURE SPECIMEN DESCRIPTION LEFT KNEE GRAM SMEAR NO * Result Note: WBC'S SEEN * * Result Note: NO ORGANISMS SEEN * CULTURE NO GROWTH 5 DAYS * Result Note: Testing performed at [place] [address] * REPORT STATUS 12/04/2023 * Result Note: FINAL * Normal [facility] Comment on above: Performed By: #### T SCC #### Testing performed at [address] [address] CBCon 11-03-2023 ABSOLUTE BAS 0.0 10*3/uL Normal 0.0-0.2 [facility] Comment on above: Performed By: #### A CBC, CMPF, PT ####Testing performed at [address] [address] ABSOLUTE EOS 0.1 10*3/uL Normal 0.0-0.7 [facility] Comment on above: Performed By: #### A CBC, CMPF, PT ####Testing performed at [address] [address] ABSOLUTE NEUTROPHIL COUNT 2.6 10*3/uL Normal 1.4-6.5 [facility] Comment on above: Performed By: #### A CBC, CMPF, PT ####Testing performed at [address] [address] Basophils/100 WBC (Bld) 0.3 % Normal 0.0-2.0 [facility] Comment on above: Performed By: #### A CBC, CMPF, PT ####Testing performed at [address] [address] DTYPE AUTO DIFF Normal [facility] Comment on above: Performed By: #### A CBC, CMPF, PT ####Testing performed at [address] [address] Eosinophils/100 WBC (Bld) 1.8 % Normal 0.0-11.0 [facility] Comment on above: Performed By: #### A CBC, CMPF, PT ####Testing performed at [address] [address] Lymphocytes (Bld) [#/Vol] 0.4 10*3/uL Low 1.2-3.4 [facility] Comment on above: Performed By: #### A CBC, CMPF, PT ####Testing performed at [address] [address] Lymphocytes/100 WBC (Bld) 11.1 % Low 20.0-55.0 [facility] Comment on above: Performed By: #### A CBC, CMPF, PT ####Testing performed at [address] [address] Monocytes (Bld) [#/Vol] 0.4 10*3/uL Normal 0.0-0.7 [facility] Comment on above: Performed By: #### A CBC, CMPF, PT ####Testing performed at [address] [address] Monocytes/100 WBC (Bld) 11.1 % High 0.0-10.0 [facility] Comment on above: Performed By: #### A CBC, CMPF, PT ####Testing performed at [address] [address] Neutrophils/100 WBC (Bld) 75.7 % High 37.0-75.0 [facility] Comment on above: Performed By: #### A CBC, CMPF, PT ####Testing performed at [address] [address] Erythrocyte distribution width (RBC) [Ratio] 14.5 % Normal 11.5-14.5 [facility] Comment on above: Performed By: #### A CBC, CMPF, PT ####[place] [address] Hematocrit (Bld) [Volume fraction] 34.7 % Low 36.0-48.0 [facility] Comment on above: Performed By: #### A CBC, CMPF, PT ####Testing performed at [place] [id number] Hemoglobin (Bld) [Mass/Vol] 11.3 g/dL Low 12.0-16.0 [facility] Comment on above: Performed By: #### A CBC, CMPF, PT ####Testing performed at [place] [id number] MCH (RBC) [Entitic mass] 33.4 pg Normal 26.0-35.0 [facility] Comment on above: Performed By: #### A CBC, CMPF, PT ####Testing performed at [place] [id number] MCHC (RBC) [Mass/Vol] 32.4 g/dL Normal 27.0-37.0 [facility] Comment on above: Performed By: #### A CBC, CMPF, PT ####[place] [address] MCV (RBC) [Entitic vol] 103.1 fL High 80.0-100.0 [facility] Comment on above: Performed By: #### A CBC, CMPF, PT ####Testing performed at [place] [id number] Platelet mean volume (Bld) [Entitic vol] 7.2 fL Low 7.4-11.0 [facility] Comment on above: Performed By: #### A CBC, CMPF, PT ####Testing performed at [place] [id number] Platelets (Bld) [#/Vol] 175 10*3/uL Normal 130-400 [facility] Comment on above: Performed By: #### A CBC, CMPF, PT ####Testing performed at [address] [address] RBC (Bld) [#/Vol] 3.37 10*6/uL Low 4.0-5.4 [facility] Comment on above: Performed By: #### A CBC, CMPF, PT ####Testing performed at [address] [address] WBC (Bld) [#/Vol] 3.5 10*3/uL Low 3.6-11.0 [facility] Comment on above: Performed By: #### A CBC, CMPF, PT ####Testing performed at [address] [address] CBC, EDIF, PLATELETon 2022 ABSOLUTE BASOPHIL COUNT 0.0 10*3/uL 0.0 - 0.2 10*3/uL [facility] Basophils/100 WBC (Bld) 0.3 % 0.0 - 2.0 % [facility] Differential cell count method Nom (Bld) AUTO DIFF % [facility] Eosinophils (Bld) [#/Vol] 0.1 10*3/uL 0.0 - 0.7 10*3/uL [facility] Eosinophils/100 WBC (Bld) 1.8 % 0.0 - 11.0 % [facility] Erythrocyte distribution width (RBC) [Ratio] 14.5 % 11.5 - 14.5 % [facility] Hematocrit (Bld) [Volume fraction] 34.7 % Low 36.0 - 48.0 % [facility] Hemoglobin (Bld) [Mass/Vol] 11.3 g/dL Low [facility] Interpretation and review of laboratory results Abnormal [facility] Lymphocytes (Bld) [#/Vol] 0.4 10*3/uL Low 1.2 - 3.4 10*3/uL [facility] Lymphocytes/100 WBC (Bld) 11.1 % Low 20.0 - 55.0 % [facility] MCH (RBC) [Entitic mass] 33.4 pg 26.0 - 35.0 PG [facility] MCHC (RBC) [Mass/Vol] 32.4 g/dL [facility] MCV (RBC) [Entitic vol] 103.1 fL High [facility] Monocytes (Bld) [#/Vol] 0.4 10*3/uL 0.0 - 0.7 10*3/uL [facility] Monocytes/100 WBC (Bld) 11.1 % High 0.0 - 10.0 % [facility] Neutrophils (Bld) [#/Vol] 2.6 10*3/uL 1.4 - 6.5 10*3/uL [facility] Neutrophils/100 WBC (Bld) 75.7 % High 37.0 - 75.0 % [facility] Platelet mean volume (Bld) [Entitic vol] 7.2 fL Low [facility] Platelets (Bld) [#/Vol] 175 10*3/uL 130 - 400 10*3/uL [facility] RBC (Bld) [#/Vol] 3.37 10*6/uL Low 4.0 - 5.4 10*6/uL [facility] WBC (Bld) [#/Vol] 3.5 10*3/uL Low 3.6 - 11.0 10*3/uL [facility] CMP FASTINGon 11-03-2023 A:G RATIO 1.7 RATIO Normal [facility] Comment on above: Performed By: #### A CBC, CMPF, PT ####Testing performed at [address] [address] ALBUMIN 3.8 G/dl Normal 3.5-5.0 [facility] Comment on above: Performed By: #### A CBC, CMPF, PT ####Testing performed at [address] [address] ALP [Catalytic activity/Vol] 61 U/L Normal 38-126 [facility] Comment on above: Performed By: #### A CBC, CMPF, PT ####Testing performed at [address] [address] ALT [Catalytic activity/Vol] 26 U/L Normal <35 [facility] Comment on above: Performed By: #### A CBC, CMPF, PT ####Testing performed at [address] [address] AST [Catalytic activity/Vol] 36 U/L Normal 14-36 [facility] Comment on above: Performed By: #### A CBC, CMPF, PT ####Testing performed at [address] [address] Bilirubin [Mass/Vol] 0.7 mg/dL Normal 0.2-1.3 [facility] Comment on above: Performed By: #### A CBC, CMPF, PT ####Testing performed at [address] [address] Calcium [Mass/Vol] 9.4 mg/dL Normal 8.4-10.2 [facility] Comment on above: Performed By: #### A CBC, CMPF, PT ####Testing performed at [address] [address] Chloride [Moles/Vol] 104 mmol/L Normal 98-107 [facility] Comment on above: Result Comment: Sriram arriaga note: Triglyceride levels of 600mg/dL or higher may positively bias chloride results by approximately 2.1 mmol Performed By: #### A CBC, CMPF, PT ####Testing performed at [place] [id number] CO2 [Moles/Vol] 28 mmol/L Normal 22-30 [facility] Comment on above: Performed By: #### A CBC, CMPF, PT ####Testing performed at [address] [address] Creatinine [Mass/Vol] 0.60 mg/dL Low 0.70-1.20 [facility] Comment on above: Performed By: #### A CBC, CMPF, PT ####Testing performed at [address] [address] EST. GFR, 127 ml/min/1.73sq.m [facility] Comment on above: Performed By: #### A CBC, CMPF, PT ####Testing performed at [address] [address] EST. GFR,Non 105 ml/min/1.73sq.m [facility] Comment on above: Performed By: #### A CBC, CMPF, PT ####Testing performed at [address] [address] GFR Information Average GFR for 70+ years old = 75. Normal [facility] Comment on above: Result Comment: Retail Loss Prevention Investigator arine Kidney disease, GFR = <60. Kidney failure, GFR = <15. The GFR estimate is not adjusted for extreme body surface area or acute process, nor has it been validated for women or ethnic groups other than and . Performed By: #### A CBC, CMPF, PT ####Testing performed at [place] [id number] Glucose [Mass/Vol] 91 mg/dL Normal 70-100 [facility] Comment on above: Result Comment: NORMAL <100 mg/dL PREDIABETES 101-126 mg/dL DIABETES 126 mg/dL or higher Performed By: #### A CBC, CMPF, PT ####Testing performed at [place] [id number] Potassium [Moles/Vol] 3.9 mmol/L Normal 3.5-5.1 [facility] Comment on above: Performed By: #### A CBC, CMPF, PT ####Testing performed at [place] [id number] Protein [Mass/Vol] 6.1 g/dL Low 6.3-8.2 [facility] Comment on above: Performed By: #### A CBC, CMPF, PT ####Testing performed at [place] [id number] Sodium [Moles/Vol] 135 mmol/L Low 137-145 [facility] Comment on above: Performed By: #### A CBC, CMPF, PT ####Testing performed at [address] [address] Urea nitrogen [Mass/Vol] 12 mg/dL Normal 7-20 [facility] Comment on above: Performed By: #### A CBC, CMPF, PT ####Testing performed at [address] [address] COMPREHENSIVE METABOLIC PANE [facility] 11-03-2023 Albumin [Mass/Vol] 3.8 G/dl 3.5 - 5.0 G/dl [facility] Albumin/Globulin [Mass ratio] 1.7 {ratio} RATIO [facility] ALP [Catalytic activity/Vol] 61 U/L [facility] ALT [Catalytic activity/Vol] 26 U/L NINF [facility] AST [Catalytic activity/Vol] 36 U/L [facility] Bilirubin [Mass/Vol] 0.7 mg/dL [facility] Calcium [Mass/Vol] 9.4 mg/dL [facility] Chloride [Moles/Vol] 104 mmol/L [facility] Comment on above: Please note: Triglyc eride levels of 600mg/dL or higher may positively bias chloride results by approximately 2.1 mmol CO2 [Moles/Vol] 28 mmol/L [facility] Creatinine [Mass/Vol] 0.60 mg/dL Low [facility] GFR COMMENT Average GFR for 70+ years old = 75. [facility] Comment on above: Chronic Kidney disea se, GFR = <60. Kidney failure, GFR = <15. The GFR estimate is not adjusted for extreme body surface area or acute process, nor has it been validated for women or ethnic groups other than and . GFR/1.73 sq M.predicted among blacks MDRD (S/P/Bld) [Vol rate/Area] 127 mL/min/{1.73_m2} ml/min/1.73sq .m [facility] GFR/1.73 sq M.predicted among non-blacks MDRD (S/P/Bld) [Vol rate/Area] 105 mL/min/{1.73_m2} ml/min/1.73sq .m [facility] Glucose post fast [Mass/Vol] 91 mg/dL [facility] Comment on above: NORMAL <100 mg/dL PREDIABETES 101-126 mg/dL DIABETES 126 mg/dL or higher Interpretation and review of laboratory results Abnormal [facility] Potassium [Moles/Vol] 3.9 mmol/L [facility] Protein [Mass/Vol] 6.1 g/dL Low [facility] Sodium [Moles/Vol] 135 mmol/L Low [facility] Urea nitrogen [Mass/Vol] 12 mg/dL [facility] ECGOrdered By: Delgado da silva on 11-03-2023 [facility] Work Phone: HEMOGLOBIN A1Con 11-03-2023 Glucose [Mass/Vol] 100 mg/dL Normal [facility] Comment on above: Performed By: #### H A1CT #### Testing performed at [address] [address] HbA1c (Bld) [Mass fraction] 5.1 % Normal 0-6 [facility] Comment on above: Result Comment: NORMAL <5.7% PREDIABETES 5.7-6.4% DIABETES 6.5% OR HIGHER Performed By: #### H A1CT #### Testing performed at [address] [address] Glucose [Mass/Vol] 100 mg/dL [facility] HbA1c (Bld) [Mass fraction] 5.1 % 0 - 6 % [facility] Comment on above: NORMAL <5.7% PREDIABETES 5.7-6.4% DIABETES 6.5% OR HIGHER [facility] MRSA SCREENon 11-03-2023 MRSA DNA NOHELIA+probe Ql (Unsp spec) Negative Normal NEGATIVE [facility] Comment on above: Performed By: #### T SCC #### Testing performed at [address] [address] STAPH AUREUS SCREEN Negative Normal NEGATIVE [facility] Comment on above: Result Comment: TEST ING PERFORMED BY PCR Performed By: #### T SCC #### Testing performed at [address] [address] PROTIMEon 11-03-2023 INR Coag (PPP) [Relative time] 0.94 {INR} Normal 0.85-1.10 [facility] Comment on above: Result Comment: 2.0-3.0 THERAPEUTIC RANGE 2.5-3.5 MECHANICAL VALVE RANGE Performed By: #### A CBC, CMPF, PT ####Testing performed at [address] [place] [address] PT Coag (PPP) [Time] 12.7 s Normal 11.8-14.4 [facility] Comment on above: Performed By: #### A CBC, CMPF, PT ####Testing performed at [address] [place] [address] PROTIME-INRon 11-03-2023 INR Coag (PPP) [Relative time] 0.94 {INR} 0.85 - 1.10 [facility] Comment on above: 2.0-3.0 THERAPEUTIC RANGE 2.5-3.5 MECHANICAL VALVE RANGE PT Coag (PPP) [Time] 12.7 s [facility] SCREEN: MRSA ONLY, NARES (IS OLATION SCREEN)on 11-03-2023 MRSA isol Org specific cx Ql (Nose) Negative NEGATIVE [facility] STAPHYOCOCCUS AUREUS BY PCR Negative NEGATIVE [facility] Comment on above: TESTING PERFORMED BY PCR [facility] URINALYSIS, MACROon 11-03-20 23 Bilirubin Ql (U) Negative NEGATIVE [facility] Clarity (U) CLEAR CLEAR [facility] Color (U) YELLOW YELLOW [facility] Glucose Test strip (U) [Mass/Vol] Negative NEGATIVE mg/dl [facility] Hemoglobin Ql (U) Negative NEGATIVE [facility] Ketones (U) [Mass/Vol] Negative NEGATIVE mg/dl [facility] Leukocyte esterase Test strip Ql (U) Negative NEGATIVE [facility] Nitrite Ql (U) Negative NEGATIVE [facility] pH (U) 7.0 [pH] 5.0 - 7.0 [facility] Protein Ql (U) Negative NEGATIVE mg/dl [facility] Specific gravity (U) [Rel density] 1.015 1.010 - 1.025 [facility] Urobilinogen (U) [Mass/Vol] 0.2 mg/dL [facility] URINE MACROSCOPICon 11-03-20 23 Bilirubin Ql (U) Negative Normal NEGATIVE [facility] Comment on above: Performed By: #### U MAC #### Testing performed at [address] [address] Clarity (U) CLEAR Normal CLEAR [facility] Comment on above: Performed By: #### U MAC #### Testing performed at [address] [address] Color (U) YELLOW Normal YELLOW [facility] Comment on above: Performed By: #### U MAC #### Testing performed at [address] [address] Glucose Ql (U) Negative Normal NEGATIVE [facility] Comment on above: Performed By: #### U MAC #### Testing performed at [address] [address] pH (U) 7.0 [pH] Normal 5.0-7.0 [facility] Comment on above: Performed By: #### U MAC #### Testing performed at [address] [address] URINE HEMOGLOBIN Negative Normal NEGATIVE [facility] Comment on above: Performed By: #### U MAC #### Testing performed at [address] [address] URINE KETONE Negative Normal NEGATIVE [facility] Comment on above: Performed By: #### U MAC #### Testing performed at [address] [address] URINE LEUKOTEST Negative Normal NEGATIVE [facility] Comment on above: Performed By: #### U MAC #### Testing performed at [address] [address] URINE NITRATES Negative Normal NEGATIVE [facility] Comment on above: Performed By: #### U MAC #### Testing performed at [address] [address] URINE SPEC GRAVITY 1.015 Normal 1.010-1.025 [facility] Comment on above: Performed By: #### U MAC #### Testing performed at [address] [address] URINE TOTAL PROTEIN Negative Normal NEGATIVE [facility] Comment on above: Performed By: #### U MAC #### Testing performed at [address] [address] Urobilinogen Qn (U) 0.2 {Flaquita'U}/dL Normal 0.2-1.0 [facility] Comment on above: Performed By: #### U MAC #### Testing performed at [address] [address] BMP FASTINGon 04-27-2023 Anion gap [Moles/Vol] 6 mmol/L Low 8-16 [facility] Comment on above: Performed By: #### T SCC #### Testing performed at [address] [address] Calcium [Mass/Vol] 8.1 mg/dL Low 8.4-10.2 [facility] Comment on above: Performed By: #### T SCC #### Testing performed at [address] [address] Chloride [Moles/Vol] 108 mmol/L High 98-107 [facility] Comment on above: Performed By: #### T SCC #### Testing performed at [address] [address] CO2 [Moles/Vol] 23 mmol/L Normal 22-30 [facility] Comment on above: Performed By: #### T SCC #### Testing performed at [address] [address] Creatinine [Mass/Vol] 0.56 mg/dL Normal 0.52-1.04 [facility] Comment on above: Performed By: #### T SCC #### Testing performed at [address] [address] EST. GFR, 138 ml/min/1.73sq.m [facility] Comment on above: Performed By: #### T SCC #### Testing performed at [address] [address] EST. GFR,Non 114 ml/min/1.73sq.m [facility] Comment on above: Performed By: #### T SCC #### Testing performed at [address] [address] GFR Information Average GFR for 60-6 9 years old = 85. Normal [facility] Comment on above: Result Comment: [employer] Investigator arnie Kidney disease, GFR = <60. Kidney failure, GFR = <15. The GFR estimate is not adjusted for extreme body surface area or acute process, nor has it been validated for women or ethnic groups other than and . Performed By: #### T SCC #### Testing performed at [address] [address] Glucose [Mass/Vol] 131 mg/dL High 70-100 [facility] Comment on above: Result Comment: NORMAL <100 mg/dL PREDIABETES 101-126 mg/dL DIABETES 126 mg/dL or higher Performed By: #### T SCC #### Testing performed at [address] [address] Potassium [Moles/Vol] 3.8 mmol/L Normal 3.5-5.1 [facility] Comment on above: Performed By: #### T SCC #### Testing performed at [address] [address] Sodium [Moles/Vol] 137 mmol/L Normal 136-145 [facility] Comment on above: Performed By: #### T SCC #### Testing performed at [address] [address] Urea nitrogen [Mass/Vol] 16 mg/dL Normal 7-20 [facility] Comment on above: Performed By: #### T SCC #### Testing performed at [address] [address] CBCon 04-27-2023 ABSOLUTE BAS 0.0 10*3/uL Normal 0.0-0.2 [facility] Comment on above: Performed By: #### T SCC #### Testing performed at [address] [address] ABSOLUTE EOS 0.0 10*3/uL Normal 0.0-0.7 [facility] Comment on above: Performed By: #### T SCC #### Testing performed at [address] [address] ABSOLUTE NEUTROPHIL COUNT 4.7 10*3/uL Normal 1.4-6.5 [facility] Comment on above: Performed By: #### T SCC #### Testing performed at [address] [address] Basophils/100 WBC (Bld) 0.1 % Normal 0.0-2.0 [facility] Comment on above: Performed By: #### T SCC #### Testing performed at [address] [address] DTYPE AUTO DIFF Normal [facility] Comment on above: Performed By: #### T SCC #### Testing performed at [address] [address] Eosinophils/100 WBC (Bld) 0.0 % Normal 0.0-11.0 [facility] Comment on above: Performed By: #### T SCC #### Testing performed at [address] [address] Lymphocytes (Bld) [#/Vol] 0.4 10*3/uL Low 1.2-3.4 [facility] Comment on above: Performed By: #### T SCC #### Testing performed at [address] [address] Lymphocytes/100 WBC (Bld) 7.8 % Low 20.0-55.0 [facility] Comment on above: Performed By: #### T SCC #### Testing performed at [address] [address] Monocytes (Bld) [#/Vol] 0.5 10*3/uL Normal 0.0-0.7 [facility] Comment on above: Performed By: #### T SCC #### Testing performed at [address] [address] Monocytes/100 WBC (Bld) 8.4 % Normal 0.0-10.0 [facility] Comment on above: Performed By: #### T SCC #### Testing performed at [address] [address] Neutrophils/100 WBC (Bld) 83.7 % High 37.0-75.0 [facility] Comment on above: Performed By: #### T SCC #### Testing performed at [address] [address] Erythrocyte distribution width (RBC) [Ratio] 14.0 % Normal 11.5-14.5 [facility] Comment on above: Performed By: #### T SCC #### Testing performed at [address] [place] [address] Hematocrit (Bld) [Volume fraction] 28.8 % Low 36.0-48.0 [facility] Comment on above: Performed By: #### T SCC #### Testing performed at [address] [address] Hemoglobin (Bld) [Mass/Vol] 9.7 g/dL Low 12.0-16.0 [facility] Comment on above: Performed By: #### T SCC #### Testing performed at [address] [place] [address] MCH (RBC) [Entitic mass] 34.0 pg Normal 26.0-35.0 [facility] Comment on above: Performed By: #### T SCC #### Testing performed at [address] [place] [address] MCHC (RBC) [Mass/Vol] 33.6 g/dL Normal 27.0-37.0 [facility] Comment on above: Performed By: #### T SCC #### Testing performed at [address] [place] [address] MCV (RBC) [Entitic vol] 101.4 fL High 80.0-100.0 [facility] Comment on above: Performed By: #### T SCC #### Testing performed at [address] [place] [address] Platelet mean volume (Bld) [Entitic vol] 7.2 fL Low 7.4-11.0 [facility] Comment on above: Performed By: #### T SCC #### Testing performed at [address] [place] [address] Platelets (Bld) [#/Vol] 202 10*3/uL Normal 130-400 [facility] Comment on above: Performed By: #### T SCC #### Testing performed at [address] [place] [address] RBC (Bld) [#/Vol] 2.84 10*6/uL Low 4.0-5.4 [facility] Comment on above: Performed By: #### T SCC #### Testing performed at [address] [place] [address] WBC (Bld) [#/Vol] 5.6 10*3/uL Normal 3.6-11.0 [facility] Comment on above: Performed By: #### T SCC #### Testing performed at [address] [place] [address] XR KNEE RIGHT 2 VIEWSon 04-08 XR KNEE RIGHT 2 VIEWS EXAM: XR KNEE RIGHT 2 VIEWS INDICATION: s/p TKA COMPARISON: 03/18/2023 TECHNIQUE: Radiographs as described above FINDINGS/IMPRESSION: Status post total knee arthroplasty without evidence of complication. Expected perioperative soft tissue changes. Normal [facility] CBCon 04-14-2023 ABSOLUTE BAS 0.0 10*3/uL Normal 0.0-0.2 [facility] Comment on above: Performed By: #### A CBC, CMPF, PT ####Testing performed at [address] [place] [address] ABSOLUTE EOS 0.0 10*3/uL Normal 0.0-0.7 [facility] Comment on above: Performed By: #### A CBC, CMPF, PT ####Testing performed at [address] [address] ABSOLUTE NEUTROPHIL COUNT 2.6 10*3/uL Normal 1.4-6.5 [facility] Comment on above: Performed By: #### A CBC, CMPF, PT ####Testing performed at [address] [address] Basophils/100 WBC (Bld) 0.4 % Normal 0.0-2.0 [facility] Comment on above: Performed By: #### A CBC, CMPF, PT ####Testing performed at [address] [place] [address] DTYPE AUTO DIFF Normal [facility] Comment on above: Performed By: #### A CBC, CMPF, PT ####Testing performed at [address] [place] [address] Eosinophils/100 WBC (Bld) 1.1 % Normal 0.0-11.0 [facility] Comment on above: Performed By: #### A CBC, CMPF, PT ####Testing performed at [address] [address] Lymphocytes (Bld) [#/Vol] 0.5 10*3/uL Low 1.2-3.4 [facility] Comment on above: Performed By: #### A CBC, CMPF, PT ####Testing performed at [address] [place] [address] Lymphocytes/100 WBC (Bld) 13.6 % Low 20.0-55.0 [facility] Comment on above: Performed By: #### A CBC, CMPF, PT ####Testing performed at [address] [address] Monocytes (Bld) [#/Vol] 0.3 10*3/uL Normal 0.0-0.7 [facility] Comment on above: Performed By: #### A CBC, CMPF, PT ####Testing performed at [address] [address] Monocytes/100 WBC (Bld) 9.4 % Normal 0.0-10.0 [facility] Comment on above: Performed By: #### A CBC, CMPF, PT ####Testing performed at [address] [address] Neutrophils/100 WBC (Bld) 75.5 % High 37.0-75.0 [facility] Comment on above: Performed By: #### A CBC, CMPF, PT ####Testing performed at [address] [address] Erythrocyte distribution width (RBC) [Ratio] 14.2 % Normal 11.5-14.5 [facility] Comment on above: Performed By: #### A CBC, CMPF, PT ####Testing performed at [address] [address] Hematocrit (Bld) [Volume fraction] 36.5 % Normal 36.0-48.0 [facility] Comment on above: Performed By: #### A CBC, CMPF, PT ####Testing performed at [address] [address] Hemoglobin (Bld) [Mass/Vol] 11.9 g/dL Low 12.0-16.0 [facility] Comment on above: Performed By: #### A CBC, CMPF, PT ####Testing performed at [address] [address] MCH (RBC) [Entitic mass] 33.4 pg Normal 26.0-35.0 [facility] Comment on above: Performed By: #### A CBC, CMPF, PT ####Testing performed at [address] [address] MCHC (RBC) [Mass/Vol] 32.7 g/dL Normal 27.0-37.0 [facility] Comment on above: Performed By: #### A CBC, CMPF, PT ####Testing performed at [address] [address] MCV (RBC) [Entitic vol] 102.3 fL High 80.0-100.0 [facility] Comment on above: Performed By: #### A CBC, CMPF, PT ####Testing performed at [address] [address] Platelet mean volume (Bld) [Entitic vol] 7.7 fL Normal 7.4-11.0 [facility] Comment on above: Performed By: #### A CBC, CMPF, PT ####Testing performed at [address] [address] Platelets (Bld) [#/Vol] 179 10*3/uL Normal 130-400 [facility] Comment on above: Performed By: #### A CBC, CMPF, PT ####Testing performed at [address] [address] RBC (Bld) [#/Vol] 3.57 10*6/uL Low 4.0-5.4 [facility] Comment on above: Performed By: #### A CBC, CMPF, PT ####Testing performed at [address] [address] WBC (Bld) [#/Vol] 3.4 10*3/uL Low 3.6-11.0 [facility] Comment on above: Performed By: #### A CBC, CMPF, PT ####Testing performed at [address] [address] CMP FASTINGon 04-14-2023 A:G RATIO 1.6 RATIO Normal 1.3-2.2 [facility] Comment on above: Performed By: #### A CBC, CMPF, PT ####Testing performed at [address] [address] ALBUMIN 3.9 G/dl Normal 3.5-5.0 [facility] Comment on above: Performed By: #### A CBC, CMPF, PT ####Testing performed at [address] [address] ALP [Catalytic activity/Vol] 49 U/L Normal 38-126 [facility] Comment on above: Performed By: #### A CBC, CMPF, PT ####Testing performed at [address] [address] ALT [Catalytic activity/Vol] 23 U/L Normal 14-54 [facility] Comment on above: Performed By: #### A CBC, CMPF, PT ####Testing performed at [address] [address] AST [Catalytic activity/Vol] 31 U/L Normal 15-41 [facility] Comment on above: Performed By: #### A CBC, CMPF, PT ####Testing performed at [address] [address] Bilirubin [Mass/Vol] 0.8 mg/dL Normal 0.2-1.2 [facility] Comment on above: Performed By: #### A CBC, CMPF, PT ####Testing performed at [address] [address] Calcium [Mass/Vol] 9.6 mg/dL Normal 8.4-10.2 [facility] Comment on above: Performed By: #### A CBC, CMPF, PT ####Testing performed at [address] [address] Chloride [Moles/Vol] 102 mmol/L Normal 98-107 [facility] Comment on above: Performed By: #### A CBC, CMPF, PT ####Testing performed at [address] [address] CO2 [Moles/Vol] 27 mmol/L Normal 22-30 [facility] Comment on above: Performed By: #### A CBC, CMPF, PT ####Testing performed at [address] [place] [address] Creatinine [Mass/Vol] 0.55 mg/dL Normal 0.52-1.04 [facility] Comment on above: Performed By: #### A CBC, CMPF, PT ####Testing performed at [address] [address] EST. GFR, 141 ml/min/1.73sq.m [facility] Comment on above: Performed By: #### A CBC, CMPF, PT ####Testing performed at [address] [address] EST. GFR,Non 116 ml/min/1.73sq.m Normal [facility] Comment on above: Performed By: #### A CBC, CMPF, PT ####Testing performed at [address] [address] GFR Information Average GFR for 60-6 9 years old = 85. Normal [facility] Comment on above: Result Comment: [employer] Loss [employer] Investigator arnie Kidney disease, GFR = <60. Kidney failure, GFR = <15. The GFR estimate is not adjusted for extreme body surface area or acute process, nor has it been validated for women or ethnic groups other than and . Performed By: #### A CBC, CMPF, PT ####Testing performed at [address] [address] Glucose [Mass/Vol] 91 mg/dL Normal 70-100 [facility] Comment on above: Result Comment: NORMAL <100 mg/dL PREDIABETES 101-126 mg/dL DIABETES 126 mg/dL or higher Performed By: #### A CBC, CMPF, PT ####Testing performed at [address] [address] Potassium [Moles/Vol] 4.0 mmol/L Normal 3.5-5.1 [facility] Comment on above: Performed By: #### A CBC, CMPF, PT ####Testing performed at [address] [address] Protein [Mass/Vol] 6.3 g/dL Normal 6.3-8.2 [facility] Comment on above: Performed By: #### A CBC, CMPF, PT ####Testing performed at [address] [address] Sodium [Moles/Vol] 140 mmol/L Normal 136-145 [facility] Comment on above: Performed By: #### A CBC, CMPF, PT ####Testing performed at [address] [address] Urea nitrogen [Mass/Vol] 17 mg/dL Normal 7-20 [facility] Comment on above: Performed By: #### A CBC, CMPF, PT ####Testing performed at [address] [address] HEMOGLOBIN A1Con 04-14-2023 Glucose [Mass/Vol] 111 mg/dL Normal [facility] Comment on above: Performed By: #### H A1CT #### Testing performed at [place] [id number] HbA1c (Bld) [Mass fraction] 5.5 % Normal <6 [facility] Comment on above: Result Comment: NORMAL <5.7% PREDIABETES 5.7-6.4% DIABETES 6.5% OR HIGHER Performed By: #### H A1CT #### Testing performed at [place] [id number] MRSA SCREENon 04-14-2023 MRSA DNA NOHELIA+probe Ql (Unsp spec) Negative Normal NEGATIVE [facility] Comment on above: Performed By: #### M RSAST #### Testing performed at [place] [id number] STAPH AUREUS SCREEN Negative Normal NEGATIVE [facility] Comment on above: Result Comment: TEST ING PERFORMED BY PCR Performed By: #### M RSAST #### Testing performed at [address] [address] PROTIMEon 04-14-2023 INR Coag (PPP) [Relative time] 0.94 {INR} Normal 0.85-1.10 [facility] Comment on above: Result Comment: 2.0-3.0 THERAPEUTIC RANGE 2.5-3.5 MECHANICAL VALVE RANGE Performed By: #### A CBC, CMPF, PT ####Testing performed at [address] [address] PT Coag (PPP) [Time] 12.7 s Normal 11.8-14.4 [facility] Comment on above: Performed By: #### A CBC, CMPF, PT ####Testing performed at [address] [place] [address] TYPE AND SCREEN CROSSMATCH C ONVERTIBLEon 04-14-2023 TYPE AND SCREEN CROSSMATCH CONVERTIBLE WORKUP EXPIRES 04/29/2023,2359 ABO/RH(D) O POSITIVE ANTIBODY SCREEN NEGATIVE ARM BAND NUMBER [id number] Normal [facility] Comment on above: Performed By: #### T SCC #### Testing performed at [address] [address] URINE MACROSCOPICon 04-14-20 23 Bilirubin Ql (U) Negative Normal NEGATIVE [facility] Comment on above: Performed By: #### T SCC #### Testing performed at [address] [address] Clarity (U) CLEAR Normal CLEAR [facility] Comment on above: Performed By: #### T SCC #### Testing performed at [address] [place] [address] Color (U) YELLOW Normal YELLOW [facility] Comment on above: Performed By: #### T SCC #### Testing performed at [address] [address] Glucose Ql (U) Negative Normal NEGATIVE [facility] Comment on above: Performed By: #### T SCC #### Testing performed at [address] [address] pH (U) 7.0 [pH] Normal 5.0-7.0 [facility] Comment on above: Performed By: #### T SCC #### Testing performed at [address] [address] Protein (U) [Mass/Vol] 30 mg/dL Abnormal NEGATIVE [facility] Comment on above: Performed By: #### T SCC #### Testing performed at [address] [address] URINE HEMOGLOBIN Negative Normal NEGATIVE [facility] Comment on above: Performed By: #### T SCC #### Testing performed at [address] [address] URINE KETONE 15 mg/dl Abnormal NEGATIVE [facility] Comment on above: Performed By: #### T SCC #### Testing performed at [address] [address] URINE LEUKOTEST Negative Normal NEGATIVE [facility] Comment on above: Performed By: #### T SCC #### Testing performed at [address] [place] [address] URINE NITRATES Negative Normal NEGATIVE [facility] Comment on above: Performed By: #### T SCC #### Testing performed at [address] [place] [address] URINE SPEC GRAVITY 1.025 Normal 1.010-1.025 [facility] Comment on above: Performed By: #### T SCC #### Testing performed at [address] [address] Urobilinogen Qn (U) 0.2 {Flaquita'U}/dL Normal 0.2-1.0 [facility] Comment on above: Performed By: #### T SCC #### Testing performed at [address] [place] [address] URINE MICROSCOPICon 04-14-20 23 BACTERIA TRACE Abnormal NEGATIVE [facility] Comment on above: Performed By: #### T SCC #### Testing performed at [address] [place] [address] CASTS NONE Normal NONE [facility] Comment on above: Performed By: #### T SCC #### Testing performed at [address] [place] [address] CRYSTAL NONE Normal NONE [facility] Comment on above: Performed By: #### T SCC #### Testing performed at [address] [place] [address] Epithelial cells LM Ql (Urine sed) 1 TO 5 Normal [facility] Comment on above: Performed By: #### T SCC #### Testing performed at [address] [place] [address] Mucus Ql (Urine sed) 1+ Abnormal NEGATIVE [facility] Comment on above: Performed By: #### T SCC #### Testing performed at [address] [place] [address] URINE COMMENT CULTURE CRITERIA NOT MET, NO CULTURE PERFORMED. Normal [facility] Comment on above: Performed By: #### T SCC #### Testing performed at [address] [address] URINE RBC'S Negative Normal NEGATIVE [facility] Comment on above: Performed By: #### T SCC #### Testing performed at [address] [address] URINE WBC'S 1 TO 5 Normal NEGATIVE [facility] Comment on above: Performed By: #### T SCC #### Testing performed at [address] [place] [address] C3 and C4 COMPLEMENTon 02-09 Complement C3, Serum 140 mg/dL Normal 82-167 [facility] Comment on above: Performed By: #### L IVER, LIPID, TSH, FT3, T4 #### [facility] [address] [address] [address] Frank Hills Complement C4, Serum 36 mg/dL Normal 12-38 [facility] Comment on above: Performed By: #### L IVER, LIPID, TSH, FT3, T4 #### [facility] [address] [address] [address] Frank Hills COMPLEMENT TOTAL (CH50)on Complement, Total (CH50) >60 Normal >41 [facility] Comment on above: Result Comment: Age [...] values. Performed By: #### C H50T #### [facility] [address] [address] [address] Frank Hills CBC AUTO DIFFon 02-08-2023 BASO # 0.0 103/ul Normal 0.0-0.1 [facility] Comment on above: Performed By: #### C BC #### [facility] [address] [address] [address] Frank Hills Basophils/100 WBC (Bld) 0.3 % Normal 0.2-2.0 [facility] Comment on above: Performed By: #### C BC #### [facility] [address] [place] [address] Dr. Frank Hills EO # 0.1 103/ul Normal 0.0-0.7 [facility] Comment on above: Performed By: #### C BC #### [facility] [address] [place] [address] Dr. Frank Hills Eosinophils/100 WBC (Bld) 1.6 % Normal 0.9-7.0 [facility] Comment on above: Performed By: #### C BC #### [facility] [address] [place] [address] Dr. Frank Hills Erythrocyte distribution width (RBC) [Ratio] 13.6 % Normal 11.0-15.0 [facility] Comment on above: Performed By: #### C BC #### [facility] [address] [place] [address] Dr. Frank Hills Hematocrit (Bld) [Volume fraction] 36.4 % Normal 36.0-48.0 [facility] Comment on above: Performed By: #### C BC #### [facility] [address] [place] [address] Dr. Frank Hills Hemoglobin (Bld) [Mass/Vol] 11.8 g/dL Critically low 12.0-16.0 [facility] Comment on above: Performed By: #### C BC #### [facility] [address] [place] [address] Dr. Frank Hills IG # 0.01 10e3/ul Normal 0.00-0.03 [facility] Comment on above: Performed By: #### C BC #### [facility] [address] [place] [address] Dr. Frank Hills IG % 0.3 % Normal 0.0-0.5 [facility] Comment on above: Performed By: #### C BC #### [facility] [address] [place] [address] Dr. Frank Hills LYMPH # 0.6 103/ul Critically low 1.2-3.8 [facility] Comment on above: Performed By: #### C BC #### [facility] [address] [address] [address] Frank Hills Lymphocytes/100 WBC (Bld) 15.3 % Critically low 20.5-60.0 [facility] Comment on above: Performed By: #### C BC #### [facility] [address] [place] [address] Dr. Frank Hills MANUAL DIFF REQ NO Normal [facility] Comment on above: Performed By: #### C BC #### [facility] [address] [address] [address] Frank Hills MCH (RBC) [Entitic mass] 33.2 pg Normal 26.7-34.0 [facility] Comment on above: Performed By: #### C BC #### [facility] [address] [place] [address] Dr. Frank Hills MCHC (RBC) [Mass/Vol] 32.4 g/dL Normal 29.9-35.2 [facility] Comment on above: Performed By: #### C BC #### [facility] [address] [place] [address] Dr. Frank Hills MCV (RBC) [Entitic vol] 102.5 fL Critically high 81.0-99.0 [facility] Comment on above: Performed By: #### C BC #### [facility] [address] [place] [address] Dr. Frank Hills MONO # 0.5 103/ul Normal 0.3-0.8 [facility] Comment on above: Performed By: #### C BC #### [facility] [address] [place] [address] Dr. Frank Hills Monocytes/100 WBC (Bld) 12.5 % Critically high 1.7-12.0 [facility] Comment on above: Performed By: #### C BC #### [facility] [address] [place] [address] Dr. Frank Hills NEUT # 2.6 103/ul Normal 1.4-6.5 [facility] Comment on above: Performed By: #### C BC #### [facility] [address] [place] [address] Dr. Frank Hills Neutrophils/100 WBC (Bld) 70.0 % Normal 43.0-75.0 [facility] Comment on above: Performed By: #### C BC #### [facility] [address] [address] [address] Frank Hills Platelet mean volume (Bld) [Entitic vol] 9.0 fL Critically low 9.5-13.5 [facility] Comment on above: Performed By: #### C BC #### [facility] [address] [address] [address] Frank Hills PLT 192 103/ul Normal 150-450 [facility] Comment on above: Performed By: #### C BC #### [facility] [address] [address] [address] Frank Hills RBC 3.55 106/ul Critically low 4.20-5.40 [facility] Comment on above: Performed By: #### C BC #### [facility] [address] [address] [address] Frank Hills WBC 3.7 103/ul Critically low 4.0-11.0 [facility] Comment on above: Performed By: #### C BC #### [facility] [address] [place] [address] Dr. Frank Hills PROF 14(COMP METB)on 023 Albumin [Mass/Vol] 3.7 g/dL Normal 3.4-5.0 [facility] Comment on above: Performed By: #### L IVER, LIPID, TSH, FT3, T4 #### [facility] [address] [place] [address] Dr. Frank Hills Albumin/Globulin [Mass ratio] 1.2 {ratio} Normal [facility] Comment on above: Performed By: #### L IVER, LIPID, TSH, FT3, T4 #### [facility] [address] [address] [address] Frank Hills ALP [Catalytic activity/Vol] 66 U/L Normal 46-116 [facility] Comment on above: Performed By: #### L IVER, LIPID, TSH, FT3, T4 #### [facility] [address] [place] [address] Dr. Frank Hills ALT [Catalytic activity/Vol] 29 U/L Normal 14-59 [facility] Comment on above: Performed By: #### L IVER, LIPID, TSH, FT3, T4 #### [facility] [address] [place] [address] Dr. Frank Hills Anion gap [Moles/Vol] 11.6 mmol/L Normal [facility] Comment on above: Performed By: #### L IVER, LIPID, TSH, FT3, T4 #### [facility] [address] [place] [address] Dr. Frank Hills AST [Catalytic activity/Vol] 27 U/L Normal 15-37 [facility] Comment on above: Performed By: #### L IVER, LIPID, TSH, FT3, T4 #### [facility] [address] [place] [address] Dr. Frank Hills Bilirubin [Mass/Vol] 0.7 mg/dL Normal 0.2-1.0 [facility] Comment on above: Performed By: #### L IVER, LIPID, TSH, FT3, T4 #### [facility] [address] [place] [address] Dr. Frank Hills Calcium [Mass/Vol] 9.1 mg/dL Normal 8.5-10.1 [facility] Comment on above: Performed By: #### L IVER, LIPID, TSH, FT3, T4 #### [facility] [address] [place] [address] Dr. Frank Hills Chloride [Moles/Vol] 105 mmol/L Normal 98-107 [facility] Comment on above: Performed By: #### L IVER, LIPID, TSH, FT3, T4 #### [facility] [address] [place] [address] Dr. Frank Hills CO2 [Moles/Vol] 29.5 mmol/L Normal 21.0-32.0 [facility] Comment on above: Performed By: #### L IVER, LIPID, TSH, FT3, T4 #### [facility] [address] [place] [address] Dr. Frank Hills Creatinine [Mass/Vol] 0.57 mg/dL Normal 0.55-1.02 [facility] Comment on above: Performed By: #### L IVER, LIPID, TSH, FT3, T4 #### [facility] [address] [place] [address] Dr. Frank Hills EGFR-AF LIBYAN >60 Normal >=60 [facility] Comment on above: Performed By: #### L IVER, LIPID, TSH, FT3, T4 #### [facility] [address] [place] [address] Dr. Frank Hills EGFR-NON AF LIBYAN >60 Normal >=60 [facility] Comment on above: Performed By: #### L IVER, LIPID, TSH, FT3, T4 #### [facility] [address] [place] [address] Dr. Frank Hills Globulin (S) [Mass/Vol] 3.1 g/dL Normal [facility] Comment on above: Performed By: #### L IVER, LIPID, TSH, FT3, T4 #### [facility] [address] [place] [address] Dr. Frank Hills Glucose [Mass/Vol] 95 mg/dL Normal 74-106 [facility] Comment on above: Performed By: #### L IVER, LIPID, TSH, FT3, T4 #### [facility] [address] [place] [address] Dr. Frank Hills Potassium [Moles/Vol] 5.1 mmol/L Normal 3.5-5.1 [facility] Comment on above: Performed By: #### L IVER, LIPID, TSH, FT3, T4 #### [facility] [address] [place] [address] Dr. Frank Hills Protein [Mass/Vol] 6.8 g/dL Normal 6.4-8.2 [facility] Comment on above: Performed By: #### L IVER, LIPID, TSH, FT3, T4 #### [facility] [address] [address] [address] Frank Hills Sodium [Moles/Vol] 141 mmol/L Normal 136-145 [facility] Comment on above: Performed By: #### L IVER, LIPID, TSH, FT3, T4 #### [facility] [address] [place] [address] Dr. Frank Hills Urea nitrogen [Mass/Vol] 13.0 mg/dL Normal 7.0-18.0 [facility] Comment on above: Performed By: #### L IVER, LIPID, TSH, FT3, T4 #### [facility] [address] [place] [address] Dr. Frank Hills Urea nitrogen/Creatinine [Mass ratio] 22.8 mg/mg Normal [facility] Comment on above: Performed By: #### L IVER, LIPID, TSH, FT3, T4 #### [facility] [address] [place] [address] Dr. Frank Hills SED RATE [facility] 2022 SED RATE 9 mm/hr Normal <=30 [facility] Comment on above: Performed By: #### L IVER, LIPID, TSH, FT3, T4 #### [facility] [address] [place] [address] Dr. Frank Hills UA RANDOM W/MICROSCOPICon BACTERIA NONE SEEN Normal NONE SEEN [facility] Comment on above: Performed By: #### L IVER, LIPID, TSH, FT3, T4 #### [facility] [address] [place] [address] Dr. Frank Hills Bilirubin Ql (U) Negative Normal NEGATIVE [facility] Comment on above: Performed By: #### L IVER, LIPID, TSH, FT3, T4 #### [facility] [address] [place] [address] Dr. Frank Hills CAST NONE SEEN Normal NONE SEEN [facility] Comment on above: Performed By: #### L IVER, LIPID, TSH, FT3, T4 #### [facility] [address] [place] [address] Dr. Frank Hills Clarity (U) CLEAR Normal CLEAR [facility] Comment on above: Performed By: #### L IVER, LIPID, TSH, FT3, T4 #### [facility] [address] [address] [address] Frank Hills Color (U) LT. YELLOW Normal YELLOW [facility] Comment on above: Performed By: #### L IVER, LIPID, TSH, FT3, T4 #### [facility] [address] [address] [address] Frank Hills Crystals LM Nom (Urine sed) NONE SEEN Normal NONE SEEN [facility] Comment on above: Performed By: #### L IVER, LIPID, TSH, FT3, T4 #### [facility] [address] [place] [address] Dr. Frank Hills Epithelial cells LM Ql (Urine sed) RARE Normal NONE SEEN /RARE [facility] Comment on above: Performed By: #### L IVER, LIPID, TSH, FT3, T4 #### [facility] [address] [place] [address] Dr. Frank Hills Glucose Ql (U) Negative Normal NEGATIVE [facility] Comment on above: Performed By: #### L IVER, LIPID, TSH, FT3, T4 #### [facility] [address] [place] [address] Dr. Frank Hills Hemoglobin Ql (U) Negative Normal NEGATIVE [facility] Comment on above: Performed By: #### L IVER, LIPID, TSH, FT3, T4 #### [facility] [address] [place] [address] Dr. Frank Hills Ketones Ql (U) Negative Normal NEGATIVE [facility] Comment on above: Performed By: #### L IVER, LIPID, TSH, FT3, T4 #### [facility] [address] [place] [address] Dr. Frank Hills LEUKOCYTES Negative Normal NEGATIVE [facility] Comment on above: Performed By: #### L IVER, LIPID, TSH, FT3, T4 #### [facility] [address] [place] [address] Dr. Frank Hills MUCOUS NONE SEEN Normal NONE SEEN [facility] Comment on above: Performed By: #### L IVER, LIPID, TSH, FT3, T4 #### [facility] [address] [address] [address] Frank Hills Nitrite Ql (U) Negative Normal NEGATIVE [facility] Comment on above: Performed By: #### L IVER, LIPID, TSH, FT3, T4 #### [facility] [address] [place] [address] Dr. Frank Hills pH (U) 6.5 [pH] Normal 5-9 [facility] Comment on above: Performed By: #### L IVER, LIPID, TSH, FT3, T4 #### [facility] [address] [place] [address] Dr. Frank Hills RBC NONE SEEN Abnormal 0-2 [facility] Comment on above: Performed By: #### L IVER, LIPID, TSH, FT3, T4 #### [facility] [address] [place] [address] Dr. Frank Hills SPEC GRAVITY 1.020 Normal 1.005-<=1.025 [facility] Comment on above: Performed By: #### L IVER, LIPID, TSH, FT3, T4 #### [facility] [address] [place] [address] Dr. Frank Hills UA PROTEIN Negative Normal NEGATIVE/ TRACE [facility] Comment on above: Performed By: #### L IVER, LIPID, TSH, FT3, T4 #### [facility] [address] [place] [address] Dr. Frank Hills Urobilinogen Qn (U) 0.2 {Flaquita'U}/dL Normal 0.2 - 1. 0 [facility] Comment on above: Performed By: #### L IVER, LIPID, TSH, FT3, T4 #### [facility] [address] [place] [address] Dr. Frank Hills WBC NONE SEEN Normal NONE SEEN [facility] Comment on above: Performed By: #### L IVER, LIPID, TSH, FT3, T4 #### [facility] [address] [place] [address] Dr. Frank Hills C3 and C4 COMPLEMENTon 11-04 Complement C3, Serum 132 mg/dL Normal 82-167 [facility] Comment on above: Performed By: #### L IVER, LIPID, TSH, FT3, T4 #### [facility] [address] [address] [address] Frank Hills Complement C4, Serum 33 mg/dL Normal 12-38 [facility] Comment on above: Performed By: #### L IVER, LIPID, TSH, FT3, T4 #### [facility] [address] [address] [address] Frank Hills COMPLEMENT TOTAL (CH50)on Complement, Total (CH50) >60 Normal >41 [facility] Comment on above: Result Comment: Age Male [...] L IVER, LIPID, TSH, FT3, T4 #### [facility] [address] [address] [address] Frank Hills CBC AUTO DIFFon 11-03-2022 BASO # 0.0 103/ul Normal 0.0-0.1 [facility] Comment on above: Performed By: #### L IVER, LIPID, TSH, FT3, T4 #### [facility] [address] [address] [address] Frank Hills Basophils/100 WBC (Bld) 1.0 % Normal 0.2-2.0 [facility] Comment on above: Performed By: #### L IVER, LIPID, TSH, FT3, T4 #### [facility] [address] [address] [address] Frank Hills EO # 0.1 103/ul Normal 0.0-0.7 [facility] Comment on above: Performed By: #### L IVER, LIPID, TSH, FT3, T4 #### [facility] [address] [place] [address] Dr. Frank Hills Eosinophils/100 WBC (Bld) 1.8 % Normal 0.9-7.0 [facility] Comment on above: Performed By: #### L IVER, LIPID, TSH, FT3, T4 #### [facility] [address] [place] [address] Dr. Frank Hills Erythrocyte distribution width (RBC) [Ratio] 13.8 % Normal 11.0-15.0 [facility] Comment on above: Performed By: #### L IVER, LIPID, TSH, FT3, T4 #### [facility] [address] [place] [address] Dr. Frank Hills Hematocrit (Bld) [Volume fraction] 36.3 % Normal 36.0-48.0 [facility] Comment on above: Performed By: #### L IVER, LIPID, TSH, FT3, T4 #### [facility] [address] [place] [address] Dr. Frank Hills Hemoglobin (Bld) [Mass/Vol] 11.9 g/dL Critically low 12.0-16.0 [facility] Comment on above: Performed By: #### L IVER, LIPID, TSH, FT3, T4 #### [facility] [address] [place] [address] Dr. Frank Hills IG # 0.02 10e3/ul Normal 0.00-0.03 [facility] Comment on above: Performed By: #### L IVER, LIPID, TSH, FT3, T4 #### [facility] [address] [place] [address] Dr. Frank Hills IG % 0.5 % Normal 0.0-0.5 [facility] Comment on above: Performed By: #### L IVER, LIPID, TSH, FT3, T4 #### [facility] [address] [place] [address] Dr. Frank Hills LYMPH # 0.7 103/ul Critically low 1.2-3.8 [facility] Comment on above: Performed By: #### L IVER, LIPID, TSH, FT3, T4 #### [facility] [address] [address] [address] Frank Hills Lymphocytes/100 WBC (Bld) 18.0 % Critically low 20.5-60.0 [facility] Comment on above: Performed By: #### L IVER, LIPID, TSH, FT3, T4 #### [facility] [address] [place] [address] Dr. Frank Hills MANUAL DIFF REQ NO Normal [facility] Comment on above: Performed By: #### L IVER, LIPID, TSH, FT3, T4 #### [facility] [address] [place] [address] Dr. Frank Hills MCH (RBC) [Entitic mass] 34.2 pg Critically high 26.7-34.0 [facility] Comment on above: Performed By: #### L IVER, LIPID, TSH, FT3, T4 #### [facility] [address] [place] [address] Dr. Frank Hills MCHC (RBC) [Mass/Vol] 32.8 g/dL Normal 29.9-35.2 [facility] Comment on above: Performed By: #### L IVER, LIPID, TSH, FT3, T4 #### [facility] [address] [place] [address] Dr. Frank Hills MCV (RBC) [Entitic vol] 104.3 fL Critically high 81.0-99.0 [facility] Comment on above: Performed By: #### L IVER, LIPID, TSH, FT3, T4 #### [facility] [address] [place] [address] Dr. Frank Hills MONO # 0.4 103/ul Normal 0.3-0.8 [facility] Comment on above: Performed By: #### L IVER, LIPID, TSH, FT3, T4 #### [facility] [address] [place] [address] Dr. Frank Hills Monocytes/100 WBC (Bld) 10.0 % Normal 1.7-12.0 [facility] Comment on above: Performed By: #### L IVER, LIPID, TSH, FT3, T4 #### [facility] [address] [address] [address] Frank Hills NEUT # 2.7 103/ul Normal 1.4-6.5 [facility] Comment on above: Performed By: #### L IVER, LIPID, TSH, FT3, T4 #### [facility] [address] [address] [address] Frank Hills Neutrophils/100 WBC (Bld) 68.7 % Normal 43.0-75.0 [facility] Comment on above: Performed By: #### L IVER, LIPID, TSH, FT3, T4 #### [facility] [address] [address] [address] Frank Hills Platelet mean volume (Bld) [Entitic vol] 9.4 fL Critically low 9.5-13.5 [facility] Comment on above: Performed By: #### L IVER, LIPID, TSH, FT3, T4 #### [facility] [address] [place] [address] Dr. Frank Hills PLT 187 103/ul Normal 150-450 [facility] Comment on above: Performed By: #### L IVER, LIPID, TSH, FT3, T4 #### [facility] [address] [place] [address] Dr. Frank Hills RBC 3.48 106/ul Critically low 4.20-5.40 [facility] Comment on above: Performed By: #### L IVER, LIPID, TSH, FT3, T4 #### [facility] [address] [address] [address] Frank Hills WBC 3.9 103/ul Critically low 4.0-11.0 [facility] Comment on above: Performed By: #### L IVER, LIPID, TSH, FT3, T4 #### [facility] [address] [place] [address] Dr. Frank Hills PROF 14(COMP METB)on 022 Albumin [Mass/Vol] 3.9 g/dL Normal 3.4-5.0 [facility] Comment on above: Performed By: #### L IVER, LIPID, TSH, FT3, T4 #### [facility] [address] [place] [address] Dr. Frank Hills Albumin/Globulin [Mass ratio] 1.3 {ratio} Normal [facility] Comment on above: Performed By: #### L IVER, LIPID, TSH, FT3, T4 #### [facility] [address] [place] [address] Dr. Frank Hills ALP [Catalytic activity/Vol] 63 U/L Normal 46-116 [facility] Comment on above: Performed By: #### L IVER, LIPID, TSH, FT3, T4 #### [facility] [address] [place] [address] Dr. Frank Hills ALT [Catalytic activity/Vol] 27 U/L Normal 14-59 [facility] Comment on above: Performed By: #### L IVER, LIPID, TSH, FT3, T4 #### [facility] [facility] [address] [place] [address] Dr. Frank Hills Anion gap [Moles/Vol] 8.4 mmol/L Normal [facility] Comment on above: Performed By: #### L IVER, LIPID, TSH, FT3, T4 #### [facility] [address] [place] [address] Dr. Frank Hills AST [Catalytic activity/Vol] 31 U/L Normal 15-37 [facility] Comment on above: Performed By: #### L IVER, LIPID, TSH, FT3, T4 #### [facility] [address] [place] [address] Dr. Frank Hills Bilirubin [Mass/Vol] 0.7 mg/dL Normal 0.2-1.0 [facility] Comment on above: Performed By: #### L IVER, LIPID, TSH, FT3, T4 #### [facility] [address] [place] [address] Dr. Frank Hills Calcium [Mass/Vol] 9.0 mg/dL Normal 8.5-10.1 [facility] Comment on above: Performed By: #### L IVER, LIPID, TSH, FT3, T4 #### [facility] [address] [address] [address] Frank Hills Chloride [Moles/Vol] 102 mmol/L Normal 98-107 [facility] Comment on above: Performed By: #### L IVER, LIPID, TSH, FT3, T4 #### [facility] [address] [place] [address] Dr. Frank Hills CO2 [Moles/Vol] 30.8 mmol/L Normal 21.0-32.0 [facility] Comment on above: Performed By: #### L IVER, LIPID, TSH, FT3, T4 #### [facility] [address] [place] [address] Dr. Frank Hills Creatinine [Mass/Vol] 0.62 mg/dL Normal 0.55-1.02 [facility] Comment on above: Performed By: #### L IVER, LIPID, TSH, FT3, T4 #### [facility] [address] [place] [address] Dr. Frank Hills EGFR-AF LIBYAN >60 Normal >=60 [facility] Comment on above: Performed By: #### L IVER, LIPID, TSH, FT3, T4 #### [facility] [address] [place] [address] Dr. Frank Hills EGFR-NON AF LIBYAN >60 Normal >=60 [facility] Comment on above: Performed By: #### L IVER, LIPID, TSH, FT3, T4 #### [facility] [address] [place] [address] Dr. Frank Hills Globulin (S) [Mass/Vol] 3.1 g/dL Normal [facility] Comment on above: Performed By: #### L IVER, LIPID, TSH, FT3, T4 #### [facility] [address] [place] [address] Dr. Frank Hills Glucose [Mass/Vol] 102 mg/dL Normal 74-106 [facility] Comment on above: Performed By: #### L IVER, LIPID, TSH, FT3, T4 #### [facility] [address] [place] [address] Dr. Frank Hills Potassium [Moles/Vol] 4.2 mmol/L Normal 3.5-5.1 [facility] Comment on above: Performed By: #### L IVER, LIPID, TSH, FT3, T4 #### [facility] [address] [place] [address] Dr. Frank Hills Protein [Mass/Vol] 7.0 g/dL Normal 6.4-8.2 [facility] Comment on above: Performed By: #### L IVER, LIPID, TSH, FT3, T4 #### [facility] [address] [place] [address] Dr. Frank Hills Sodium [Moles/Vol] 137 mmol/L Normal 136-145 [facility] Comment on above: Performed By: #### L IVER, LIPID, TSH, FT3, T4 #### [facility] [address] [place] [address] Dr. Frank Hills Urea nitrogen [Mass/Vol] 15.0 mg/dL Normal 7.0-18.0 [facility] Comment on above: Performed By: #### L IVER, LIPID, TSH, FT3, T4 #### [facility] [address] [place] [address] Dr. Frank Hills Urea nitrogen/Creatinine [Mass ratio] 24.2 mg/mg Normal [facility] Comment on above: Performed By: #### L IVER, LIPID, TSH, FT3, T4 #### [facility] [address] [place] [address] Dr. Frank Hills SED RATE WESTERGRENon 2021 SED RATE 8 mm/hr Normal <=30 [facility] Comment on above: Performed By: #### L IVER, LIPID, TSH, FT3, T4 #### [facility] [address] [place] [address] Dr. Frank Hills UA RANDOM W/MICROSCOPICon BACTERIA NONE SEEN Normal NONE SEEN [facility] Comment on above: Performed By: #### L IVER, LIPID, TSH, FT3, T4 #### [facility] [address] [address] [address] Frank Hills Bilirubin Ql (U) Negative Normal NEGATIVE [facility] Comment on above: Performed By: #### L IVER, LIPID, TSH, FT3, T4 #### [facility] [address] [address] [address] Frank Hills CAST NONE SEEN Normal NONE SEEN [facility] Comment on above: Performed By: #### L IVER, LIPID, TSH, FT3, T4 #### [facility] [address] [address] [address] Frank Hills Clarity (U) CLEAR Normal CLEAR [facility] Comment on above: Performed By: #### L IVER, LIPID, TSH, FT3, T4 #### [facility] [address] [address] [address] Frank Hills Color (U) LT. YELLOW Normal YELLOW [facility] Comment on above: Performed By: #### L IVER, LIPID, TSH, FT3, T4 #### [facility] [address] [address] [address] Frank Hills Crystals LM Nom (Urine sed) NONE SEEN Normal NONE SEEN [facility] Comment on above: Performed By: #### L IVER, LIPID, TSH, FT3, T4 #### [facility] [address] [address] [address] Frank Hills Epithelial cells LM Ql (Urine sed) NONE SEEN Normal NONE SEEN /RARE [facility] Comment on above: Performed By: #### L IVER, LIPID, TSH, FT3, T4 #### [facility] [address] [address] [address] Frank Hills Glucose Ql (U) Negative Normal NEGATIVE [facility] Comment on above: Performed By: #### L IVER, LIPID, TSH, FT3, T4 #### [facility] [address] [id number] Frank Hills Hemoglobin Ql (U) Negative Normal NEGATIVE [facility] Comment on above: Performed By: #### L IVER, LIPID, TSH, FT3, T4 #### [facility] [address] [address] [address] Frank Hills Ketones Ql (U) Negative Normal NEGATIVE [facility] Comment on above: Performed By: #### L IVER, LIPID, TSH, FT3, T4 #### [facility] [address] [address] [address] Frank Hills LEUKOCYTES Negative Normal NEGATIVE [facility] Comment on above: Performed By: #### L IVER, LIPID, TSH, FT3, T4 #### [facility] [address] [address] [address] Frank Hills MUCOUS NONE SEEN Normal NONE SEEN [facility] Comment on above: Performed By: #### L IVER, LIPID, TSH, FT3, T4 #### [facility] [address] [address] [address] rFank Hills Nitrite Ql (U) Negative Normal NEGATIVE [facility] Comment on above: Performed By: #### L IVER, LIPID, TSH, FT3, T4 #### [facility] [address] [address] [address] Frank Hills pH (U) 6.5 [pH] Normal 5-9 [facility] Comment on above: Performed By: #### L IVER, LIPID, TSH, FT3, T4 #### [facility] [address] [address] [address] Frank Hills RBC 0-2 Normal 0-2 [facility] Comment on above: Performed By: #### L IVER, LIPID, TSH, FT3, T4 #### [facility] [address] [address] [address] Frank Hills SPEC GRAVITY 1.015 Normal 1.005-<=1.025 [facility] Comment on above: Performed By: #### L IVER, LIPID, TSH, FT3, T4 #### [facility] [address] [address] [address] Frank Hills UA PROTEIN Negative Normal NEGATIVE/ TRACE [facility] Comment on above: Performed By: #### L IVER, LIPID, TSH, FT3, T4 #### [facility] [address] [place] [address] Dr. Frank Hills Urobilinogen Qn (U) 0.2 {Flaquita'U}/dL Normal 0.2 - 1. 0 [facility] Comment on above: Performed By: #### L IVER, LIPID, TSH, FT3, T4 #### [facility] [address] [place] [address] Dr. Frank Hills WBC NONE SEEN Normal NONE SEEN [facility] Comment on above: Performed By: #### L IVER, LIPID, TSH, FT3, T4 #### [facility] [address] [place] [address] Dr. Frank Hills INSULINon 10-19-2022 Insulin 9.2 uIU/mL Normal 2.6-24.9 [facility] Comment on above: Performed By: #### L IVER, LIPID, TSH, FT3, T4 #### [facility] [address] [place] [address] Dr. Frank Hills CBC W MANUAL DIFFon 10-18-20 ANISOCYTOSIS SLIGHT Normal [facility] Comment on above: Performed By: #### L IVER, LIPID, TSH, FT3, T4 #### [facility] [address] [place] [address] Dr. Frank Hills ATYPICAL LYMPH # Normal [facility] Comment on above: Performed By: #### L IVER, LIPID, TSH, FT3, T4 #### [facility] [address] [place] [address] Dr. Frank Hills ATYPICAL LYMPH % Normal [facility] Comment on above: Performed By: #### L IVER, LIPID, TSH, FT3, T4 #### [facility] [address] [place] [address] Dr. Frank Hills BAND # Normal 0.0-0.3 [facility] Comment on above: Performed By: #### L IVER, LIPID, TSH, FT3, T4 #### [facility] [address] [place] [address] Dr. Frank Hills BAND % Normal 0-5 [facility] Comment on above: Performed By: #### L IVER, LIPID, TSH, FT3, T4 #### [facility] [address] [address] [address] Frank LOU # 0.00 103/ul Normal 0.00-0.10 [facility] Comment on above: Performed By: #### L IVER, LIPID, TSH, FT3, T4 #### [facility] [address] [address] [address] Frank Hills BASOM % 0.0 % Critically low 0.2-2.0 [facility] Comment on above: Performed By: #### L IVER, LIPID, TSH, FT3, T4 #### [facility] [address] [place] [address] Dr. Frank Hills BLAST # Normal [facility] Comment on above: Performed By: #### L IVER, LIPID, TSH, FT3, T4 #### [facility] [address] [place] [address] Dr. Frank Hills BLAST % Normal [facility] Comment on above: Performed By: #### L IVER, LIPID, TSH, FT3, T4 #### [facility] [address] [address] [address] Frank Hills CORRECTED WBC Normal 4.0-11.0 [facility] Comment on above: Performed By: #### L IVER, LIPID, TSH, FT3, T4 #### [facility] [address] [address] [address] Frank Hills EOS # 0.06 103/ul Normal 0.00-0.70 [facility] Comment on above: Performed By: #### L IVER, LIPID, TSH, FT3, T4 #### [facility] [address] [place] [address] Dr. Frank Hills EOS% 2.0 % Normal 0.9-7.0 [facility] Comment on above: Performed By: #### L IVER, LIPID, TSH, FT3, T4 #### [facility] [address] [address] [address] Frank Hills HCT 35.6 % Critically low 36.0-48.0 [facility] Comment on above: Performed By: #### L IVER, LIPID, TSH, FT3, T4 #### [facility] [address] [place] [address] Dr. Frank Hills HGB 11.4 g/dl Critically low 12.0-16.0 [facility] Comment on above: Performed By: #### L IVER, LIPID, TSH, FT3, T4 #### [facility] [address] [address] [address] Frank Hills LYMPHM # 0.48 103/ul Critically low 1.20-3.80 [facility] Comment on above: Performed By: #### L IVER, LIPID, TSH, FT3, T4 #### [facility] [address] [place] [address] Dr. Frank Hills LYMPHM% 17.0 % Critically low 20.5-60.0 [facility] Comment on above: Performed By: #### L IVER, LIPID, TSH, FT3, T4 #### [facility] [address] [place] [address] Dr. Frank Hills MCH 33.4 pg Normal 26.7-34.0 [facility] Comment on above: Performed By: #### L IVER, LIPID, TSH, FT3, T4 #### [facility] [address] [place] [address] Dr. Frank Hills MCHC 32.0 g/dl Normal 29.9-35.2 [facility] Comment on above: Performed By: #### L IVER, LIPID, TSH, FT3, T4 #### [facility] [address] [place] [address] Dr. Frank Hills MCV 104.4 fL Critically high 81.0-99.0 [facility] Comment on above: Performed By: #### L IVER, LIPID, TSH, FT3, T4 #### [facility] [address] [place] [address] Dr. Frank Hills METAMYELOCYTE # Normal [facility] Comment on above: Performed By: #### L IVER, LIPID, TSH, FT3, T4 #### [facility] [address] [address] [address] Frank Hills METAMYELOCYTE % Normal [facility] Comment on above: Performed By: #### L IVER, LIPID, TSH, FT3, T4 #### [facility] [address] [address] [address] Frank Hills MICROCYTOSIS 1+ Normal [facility] Comment on above: Performed By: #### L IVER, LIPID, TSH, FT3, T4 #### [facility] [address] [address] [address] Frank Hills MONOM# 0.28 103/ul Critically low 0.30-0.80 [facility] Comment on above: Performed By: #### L IVER, LIPID, TSH, FT3, T4 #### [facility] [address] [place] [address] Dr. Frank Hills MONOM% 10.0 % Normal 1.7-12.0 [facility] Comment on above: Performed By: #### L IVER, LIPID, TSH, FT3, T4 #### [facility] [address] [place] [address] Dr. Frank Hills MPV 8.9 fL Critically low 9.5-13.5 [facility] Comment on above: Performed By: #### L IVER, LIPID, TSH, FT3, T4 #### [facility] [address] [place] [address] Dr. Frank Hills MYELOCYTE # Normal [facility] Comment on above: Performed By: #### L IVER, LIPID, TSH, FT3, T4 #### [facility] [address] [place] [address] Dr. Frank Hills MYELOCYTE % Normal [facility] Comment on above: Performed By: #### L IVER, LIPID, TSH, FT3, T4 #### [facility] [address] [place] [address] Dr. Frank Hills NRBC Normal [facility] Comment on above: Performed By: #### L IVER, LIPID, TSH, FT3, T4 #### [facility] [address] [address] [address] Frank Hills PLT 169 103/ul Normal 150-450 [facility] Comment on above: Performed By: #### L IVER, LIPID, TSH, FT3, T4 #### [facility] [address] [address] [address] Frank Hills RBC 3.41 106/ul Critically low 4.20-5.40 [facility] Comment on above: Performed By: #### L IVER, LIPID, TSH, FT3, T4 #### [facility] [address] [place] [address] Dr. Frank Hills RDW 14.1 % Normal 11.0-15.0 [facility] Comment on above: Performed By: #### L IVER, LIPID, TSH, FT3, T4 #### [facility] [address] [place] [address] Dr. Frank Hills SEG # 1.99 103/ul Normal 1.40-6.50 [facility] Comment on above: Performed By: #### L IVER, LIPID, TSH, FT3, T4 #### [facility] [address] [place] [address] Dr. Frank Hills SEG % 71.0 % Normal 43.0-75.0 [facility] Comment on above: Performed By: #### L IVER, LIPID, TSH, FT3, T4 #### [facility] [address] [place] [address] Dr. Frank Hills WBC 2.8 103/ul Critically low 4.0-11.0 [facility] Comment on above: Performed By: #### L IVER, LIPID, TSH, FT3, T4 #### [facility] [address] [place] [address] Dr. Frank Hills FREE T3on 10-18-2022 FREE T3 2.61 pg/mlL Normal 2.18-3.98 [facility] Comment on above: Performed By: #### L IVER, LIPID, TSH, FT3, T4 #### [facility] [address] [address] [address] Frank Hills GLYCOHEMOGLOBIN A1Con 2021 ADA RECOMMENDATION SEE BELOW Normal [facility] Comment on above: Result Comment: ADA RECOMMENDED LIMIT 4.0 - 6.0 ADA THERAPEUTIC TARGET < 7.0 ACTION SUGGESTED > 7.0 Performed By: #### A 1C #### [facility] [address] [address] [address] Frank Hills Glucose [Mass/Vol] 108 mg/dL Normal [facility] Comment on above: Performed By: #### A 1C #### [facility] [address] [address] [address] Frank Hills HbA1c (Bld) [Mass fraction] 5.4 % Normal 4.5-6.2 [facility] Comment on above: Performed By: #### A 1C #### [facility] [address] [place] [address] Dr. Frank Hills IRONon 10-18-2022 Iron [Mass/Vol] 96.0 ug/dL Normal 50.0-170.0 [facility] Comment on above: Performed By: #### L IVER, LIPID, TSH, FT3, T4 #### [facility] [address] [place] [address] Dr. Frank Hills LIPID PROFILEon 10-18-2022 CHOL-HDL RATIO NORM SEE BELOW Normal [facility] Comment on above: Result Comment: 3.3 - 4.4 LOW RISK 4.4 - 7.1 AVERAGE RISK 7.1 - 11.0 MODERATE RISK >11.0 HIGH RISK Performed By: #### L IVER, LIPID, TSH, FT3, T4 #### [facility] [address] [address] [address] Frank Hills Cholesterol [Mass/Vol] 172 mg/dL Normal <=200 [facility] Comment on above: Performed By: #### L IVER, LIPID, TSH, FT3, T4 #### [facility] [address] [address] [address] Frank Hills Cholesterol in HDL [Mass/Vol] 66 mg/dL Critically high 40-60 [facility] Comment on above: Performed By: #### L IVER, LIPID, TSH, FT3, T4 #### [facility] [address] [address] [address] Frank Hills Cholesterol in LDL [Mass/Vol] 86.6 mg/dL Normal [facility] Comment on above: Performed By: #### L IVER, LIPID, TSH, FT3, T4 #### [facility] [address] [address] [address] Frank Hills Cholesterol.total/Ch olesterol in HDL [Mass ratio] 2.6 {ratio} Normal [facility] Comment on above: Performed By: #### L IVER, LIPID, TSH, FT3, T4 #### [facility] [address] [place] [address] Dr. Frank Hills HDL NORMAL > or = 60 mg/dl - LO W CARDIOVASCULAR RISK <40 mg/dl - HIGH CARDIOVASCULAR RISK Normal [facility] Comment on above: Performed By: #### L IVER, LIPID, TSH, FT3, T4 #### [facility] [address] [place] [address] Dr. Frank Hills LDL CALC NORMAL SEE BELOW Normal [facility] Comment on above: Result Comment: <100 mg/dl OPTIMAL 100 - 129 mg/dl NEAR OR ABOVE OPTIMAL 130 - 159 mg/dl BORDERLINE HIGH 160 - 189 mg/dl HIGH >190 mg/dl VERY HIGH Performed By: #### L IVER, LIPID, TSH, FT3, T4 #### [facility] [address] [address] [address] Frank Hills Triglyceride [Mass/Vol] 97 mg/dL Normal <=150 [facility] Comment on above: Performed By: #### L IVER, LIPID, TSH, FT3, T4 #### [facility] [address] [place] [address] Dr. Frank Hills VLDL CALC 19.4 mg/dL Normal [facility] Comment on above: Performed By: #### L IVER, LIPID, TSH, FT3, T4 #### [facility] [address] [place] [address] Dr. Frank Hills LIVER PROFILEon 10-18-2022 Albumin [Mass/Vol] 3.5 g/dL Normal 3.4-5.0 [facility] Comment on above: Performed By: #### L IVER, LIPID, TSH, FT3, T4 #### [facility] [address] [address] [address] Frank Hills Albumin/Globulin [Mass ratio] 1.2 {ratio} Normal [facility] Comment on above: Performed By: #### L IVER, LIPID, TSH, FT3, T4 #### [facility] [address] [place] [address] Dr. Frank Hills ALP [Catalytic activity/Vol] 55 U/L Normal 46-116 [facility] Comment on above: Performed By: #### L IVER, LIPID, TSH, FT3, T4 #### [facility] [address] [place] [address] Dr. Frank Hills ALT [Catalytic activity/Vol] 34 U/L Normal 14-59 [facility] Comment on above: Performed By: #### L IVER, LIPID, TSH, FT3, T4 #### [facility] [address] [place] [address] Dr. Frank Hills AST [Catalytic activity/Vol] 40 U/L Critically high 15-37 [facility] Comment on above: Performed By: #### L IVER, LIPID, TSH, FT3, T4 #### [facility] [address] [place] [address] Dr. Frank Hills BILI, CONJUGATED 0.2 mg/dL Normal 0.0-0.2 [facility] Comment on above: Performed By: #### L IVER, LIPID, TSH, FT3, T4 #### [facility] [address] [place] [address] Dr. Frank Hills Bilirubin [Mass/Vol] 0.8 mg/dL Normal 0.2-1.0 [facility] Comment on above: Performed By: #### L IVER, LIPID, TSH, FT3, T4 #### [facility] [address] [place] [address] Dr. Frank Hills Globulin (S) [Mass/Vol] 2.9 g/dL Normal [facility] Comment on above: Performed By: #### L IVER, LIPID, TSH, FT3, T4 #### [facility] [address] [place] [address] Dr. Frank Hills Protein [Mass/Vol] 6.4 g/dL Normal 6.4-8.2 [facility] Comment on above: Performed By: #### L IVER, LIPID, TSH, FT3, T4 #### [facility] [address] [place] [address] Dr. Frank Hills T4on 10-18-2022 T4 [Mass/Vol] 6.70 ug/dL Normal 4.80-13.90 [facility] Comment on above: Performed By: #### L IVER, LIPID, TSH, FT3, T4 #### [facility] [address] [place] [address] Dr. Frank Hills TSHon 10-18-2022 TSH 1.804 uIU/mL Normal 0.358-3.740 [facility] Comment on above: Performed By: #### L IVER, LIPID, TSH, FT3, T4 #### [facility] [address] [place] [address] Dr. Frank Hills VITAMIN D 25 OHon 10-18-2022 VIT D 25-OH 50.7 ng/mL Normal [facility] Comment on above: Performed By: #### L IVER, LIPID, TSH, FT3, T4 #### [facility] [address] [place] [address] Dr. Frank Hills VIT D RANGES SEE BELOW Normal [facility] Comment on above: Result Comment: <20 ng/mL Vit D deficient 20 - <30 ng/mL Vit D insufficient 30 - 100 ng/mL Vit D sufficient >100 ng/mL Potential Toxicity Performed By: #### L IVER, LIPID, TSH, FT3, T4 #### [facility] [address] [place] [address] Dr. Frank Hills MG MAMM SCREEN 3D BO CADon 08-31-2022 MG MAMM SCREEN 3D BO CAD Patient: DANYELLE HASKINSGwen Exam Date: 08/31/2022 : 1955 Gender:F Ordering : DR JACK LANDAVERDE . Admission #: [id number] Family : YULISA BATRES . Order #: [id number] CLICK HERE TO VIEW EXAM RADIOLOGY REPORT [...] thyroid cancer at age 48. LOCATION: [facility] BREAST COMPOSITION: Scattered areas fibroglandular density. [...] Sandoval MD on 08/31/2022 at 11:14 Normal [facility] XR DEXA BONE DENSITYon 08-27 XR DEXA [...] LISY SANDOVAL Date: 2022-08-27 18:41 Normal [facility] COMPLEMENT TOTAL (CH50)on Complement, Total (CH50) >60 Normal >41 [facility] Comment on above: Result Comment: Age [...] L IVER, LIPID, TSH, FT3, T4 #### [facility] [address] [place] [address] Dr. Frank Hills C3 and C4 COMPLEMENTon 08-01 Complement C3, Serum 146 mg/dL Normal 82-167 [facility] Comment on above: Performed By: #### L IVER, LIPID, TSH, FT3, T4 #### [facility] [address] [place] [address] Dr. Frank Hills Complement C4, Serum 38 mg/dL Normal 12-38 [facility] Comment on above: Performed By: #### L IVER, LIPID, TSH, FT3, T4 #### [facility] [address] [place] [address] Dr. Frank Hills CBC AUTO DIFFon 07-30-2022 BASO # 0.0 103/ul Normal 0.0-0.1 [facility] Comment on above: Performed By: #### C BC #### [facility] [address] [place] [address] Dr. Frank Hills Basophils/100 WBC (Bld) 0.9 % Normal 0.2-2.0 [facility] Comment on above: Performed By: #### C BC #### [facility] [address] [place] [address] Dr. Frank Hills EO # 0.1 103/ul Normal 0.0-0.7 [facility] Comment on above: Performed By: #### C BC #### [facility] [address] [place] [address] Dr. Frank Hills Eosinophils/100 WBC (Bld) 3.4 % Normal 0.9-7.0 [facility] Comment on above: Performed By: #### C BC #### [facility] [address] [place] [address] Dr. Frank Hills Erythrocyte distribution width (RBC) [Ratio] 13.8 % Normal 11.0-15.0 [facility] Comment on above: Performed By: #### C BC #### [facility] [address] [place] [address] Dr. Frank Hills Hematocrit (Bld) [Volume fraction] 36.6 % Normal 36.0-48.0 [facility] Comment on above: Performed By: #### C BC #### [facility] [address] [place] [address] Dr. Frank Hills Hemoglobin (Bld) [Mass/Vol] 11.8 g/dL Critically low 12.0-16.0 [facility] Comment on above: Performed By: #### C BC #### [facility] [address] [place] [address] Dr. Frank Hills IG # 0.01 10e3/ul Normal 0.00-0.03 [facility] Comment on above: Performed By: #### C BC #### [facility] [address] [place] [address] Dr. Frank Hills IG % 0.3 % Normal 0.0-0.5 [facility] Comment on above: Performed By: #### C BC #### [facility] [address] [place] [address] Dr. Frank Hills LYMPH # 0.6 103/ul Critically low 1.2-3.8 [facility] Comment on above: Performed By: #### C BC #### [facility] [address] [place] [address] Dr. Frank Hills Lymphocytes/100 WBC (Bld) 18.1 % Critically low 20.5-60.0 [facility] Comment on above: Performed By: #### C BC #### [facility] [address] [place] [address] Dr. Frank Hills MANUAL DIFF REQ NO Normal [facility] Comment on above: Performed By: #### C BC #### [facility] [address] [place] [address] Dr. Frank Hills MCH (RBC) [Entitic mass] 33.6 pg Normal 26.7-34.0 [facility] Comment on above: Performed By: #### C BC #### [facility] [address] [place] [address] Dr. Frank Hills MCHC (RBC) [Mass/Vol] 32.2 g/dL Normal 29.9-35.2 [facility] Comment on above: Performed By: #### C BC #### [facility] [address] [place] [address] Dr. Frank Hills MCV (RBC) [Entitic vol] 104.3 fL Critically high 81.0-99.0 [facility] Comment on above: Performed By: #### C BC #### [facility] [address] [place] [address] Dr. Frank Hills MONO # 0.4 103/ul Normal 0.3-0.8 [facility] Comment on above: Performed By: #### C BC #### [facility] [address] [place] [address] Dr. Frank Hills Monocytes/100 WBC (Bld) 11.2 % Normal 1.7-12.0 [facility] Comment on above: Performed By: #### C BC #### [facility] [address] [place] [address] Dr. Frank Hills NEUT # 2.3 103/ul Normal 1.4-6.5 [facility] Comment on above: Performed By: #### C BC #### [facility] [address] [place] [address] Dr. Frank Hills Neutrophils/100 WBC (Bld) 66.1 % Normal 43.0-75.0 [facility] Comment on above: Performed By: #### C BC #### [facility] [address] [place] [address] Dr. Frank Hills Platelet mean volume (Bld) [Entitic vol] 8.9 fL Critically low 9.5-13.5 [facility] Comment on above: Performed By: #### C BC #### [facility] [address] [place] [address] Dr. Frank Hills PLT 213 103/ul Normal 150-450 [facility] Comment on above: Performed By: #### C BC #### [facility] [address] [place] [address] Dr. Frank Hills RBC 3.51 106/ul Critically low 4.20-5.40 [facility] Comment on above: Performed By: #### C BC #### [facility] [address] [address] [address] Frank Hills WBC 3.5 103/ul Critically low 4.0-11.0 [facility] Comment on above: Performed By: #### C BC #### [facility] [address] [place] [address] Dr. Frank Hills PROF 14(COMP METB)on 022 Albumin [Mass/Vol] 3.7 g/dL Normal 3.4-5.0 [facility] Comment on above: Performed By: #### L IVER, LIPID, TSH, FT3, T4 #### [facility] [address] [place] [address] Dr. Frank Hills Albumin/Globulin [Mass ratio] 1.2 {ratio} Normal [facility] Comment on above: Performed By: #### L IVER, LIPID, TSH, FT3, T4 #### [facility] [address] [place] [address] Dr. Frank Hills ALP [Catalytic activity/Vol] 59 U/L Normal 46-116 [facility] Comment on above: Performed By: #### L IVER, LIPID, TSH, FT3, T4 #### [facility] [address] [place] [address] Dr. Frank Hills ALT [Catalytic activity/Vol] 23 U/L Normal 14-59 [facility] Comment on above: Performed By: #### L IVER, LIPID, TSH, FT3, T4 #### [facility] [address] [place] [address] Dr. Frnak Hills Anion gap [Moles/Vol] 10.2 mmol/L Normal [facility] Comment on above: Performed By: #### L IVER, LIPID, TSH, FT3, T4 #### [facility] [address] [place] [address] Dr. Frank Hills AST [Catalytic activity/Vol] 24 U/L Normal 15-37 [facility] Comment on above: Performed By: #### L IVER, LIPID, TSH, FT3, T4 #### [facility] [address] [place] [address] Dr. Frank Hills Bilirubin [Mass/Vol] 0.6 mg/dL Normal 0.2-1.0 [facility] Comment on above: Performed By: #### L IVER, LIPID, TSH, FT3, T4 #### [facility] [address] [address] [address] Frank Hills Calcium [Mass/Vol] 8.9 mg/dL Normal 8.5-10.1 [facility] Comment on above: Performed By: #### L IVER, LIPID, TSH, FT3, T4 #### [facility] [address] [address] [address] Frank Hills Chloride [Moles/Vol] 105 mmol/L Normal 98-107 [facility] Comment on above: Performed By: #### L IVER, LIPID, TSH, FT3, T4 #### [facility] [address] [place] [address] Dr. Frank Hills CO2 [Moles/Vol] 30.0 mmol/L Normal 21.0-32.0 [facility] Comment on above: Performed By: #### L IVER, LIPID, TSH, FT3, T4 #### [facility] [address] [place] [address] Dr. Frank Hills Creatinine [Mass/Vol] 0.64 mg/dL Normal 0.55-1.02 [facility] Comment on above: Performed By: #### L IVER, LIPID, TSH, FT3, T4 #### [facility] [address] [place] [address] Dr. Frank Hills EGFR-AF LIBYAN >60 Normal >=60 [facility] Comment on above: Performed By: #### L IVER, LIPID, TSH, FT3, T4 #### [facility] [address] [address] [address] Frank Hills EGFR-NON AF LIBYAN >60 Normal >=60 [facility] Comment on above: Performed By: #### L IVER, LIPID, TSH, FT3, T4 #### [facility] [address] [address] [address] Frank Hills Globulin (S) [Mass/Vol] 3.0 g/dL Normal [facility] Comment on above: Performed By: #### L IVER, LIPID, TSH, FT3, T4 #### [facility] [address] [address] [address] Frank Hills Glucose [Mass/Vol] 97 mg/dL Normal 74-106 [facility] Comment on above: Performed By: #### L IVER, LIPID, TSH, FT3, T4 #### [facility] [address] [place] [address] Dr. Frank Hills Potassium [Moles/Vol] 4.2 mmol/L Normal 3.5-5.1 [facility] Comment on above: Performed By: #### L IVER, LIPID, TSH, FT3, T4 #### [facility] [address] [place] [address] Dr. Frank Hills Protein [Mass/Vol] 6.7 g/dL Normal 6.4-8.2 [facility] Comment on above: Performed By: #### L IVER, LIPID, TSH, FT3, T4 #### [facility] [address] [address] [address] Frank Hills Sodium [Moles/Vol] 141 mmol/L Normal 136-145 [facility] Comment on above: Performed By: #### L IVER, LIPID, TSH, FT3, T4 #### [facility] [address] [place] [address] Dr. Frank Hills Urea nitrogen [Mass/Vol] 13.0 mg/dL Normal 7.0-18.0 [facility] Comment on above: Performed By: #### L IVER, LIPID, TSH, FT3, T4 #### [facility] [address] [address] [address] Frank Hills Urea nitrogen/Creatinine [Mass ratio] 20.3 mg/mg Normal [facility] Comment on above: Performed By: #### L IVER, LIPID, TSH, FT3, T4 #### [facility] [address] [address] [address] Frank Hills SED RATE WESTERGRENon 2021 SED RATE 8 mm/hr Normal <=30 [facility] Comment on above: Performed By: #### L IVER, LIPID, TSH, FT3, T4 #### [facility] [address] [place] [address] Dr. Frank Hills UA RANDOM W/MICROSCOPICon BACTERIA NONE SEEN Normal NONE SEEN [facility] Comment on above: Performed By: #### L IVER, LIPID, TSH, FT3, T4 #### [facility] [address] [place] [address] Dr. Frank Hills Bilirubin Ql (U) Negative Normal NEGATIVE [facility] Comment on above: Performed By: #### L IVER, LIPID, TSH, FT3, T4 #### [facility] [address] [place] [address] Dr. Frank Hills CAST NONE SEEN Normal NONE SEEN [facility] Comment on above: Performed By: #### L IVER, LIPID, TSH, FT3, T4 #### [facility] [address] [place] [address] Dr. Frank Hills Clarity (U) CLEAR Normal CLEAR [facility] Comment on above: Performed By: #### L IVER, LIPID, TSH, FT3, T4 #### [facility] [address] [place] [address] Dr. Frank Hills Color (U) LT. YELLOW Normal YELLOW [facility] Comment on above: Performed By: #### L IVER, LIPID, TSH, FT3, T4 #### [facility] [address] [place] [address] Dr. Frank Hills Crystals LM Nom (Urine sed) NONE SEEN Normal NONE SEEN [facility] Comment on above: Performed By: #### L IVER, LIPID, TSH, FT3, T4 #### [facility] [address] [address] [address] Frank Hills Epithelial cells LM Ql (Urine sed) FEW Abnormal NONE SEEN /RARE [facility] Comment on above: Performed By: #### L IVER, LIPID, TSH, FT3, T4 #### [facility] [address] [address] [address] Frank Hills Glucose Ql (U) Negative Normal NEGATIVE [facility] Comment on above: Performed By: #### L IVER, LIPID, TSH, FT3, T4 #### [facility] [address] [address] [address] Frank Hills Hemoglobin Ql (U) Negative Normal NEGATIVE [facility] Comment on above: Performed By: #### L IVER, LIPID, TSH, FT3, T4 #### [facility] [address] [address] [address] Frank Hills Ketones Ql (U) Negative Normal NEGATIVE [facility] Comment on above: Performed By: #### L IVER, LIPID, TSH, FT3, T4 #### [facility] [address] [address] [address] Frank Hills LEUKOCYTES TRACE Abnormal NEGATIVE [facility] Comment on above: Performed By: #### L IVER, LIPID, TSH, FT3, T4 #### [facility] [address] [address] [address] Frank Hills MUCOUS NONE SEEN Normal NONE SEEN [facility] Comment on above: Performed By: #### L IVER, LIPID, TSH, FT3, T4 #### [facility] [address] [address] [address] Frank Hills Nitrite Ql (U) Negative Normal NEGATIVE [facility] Comment on above: Performed By: #### L IVER, LIPID, TSH, FT3, T4 #### [facility] [address] [address] [address] Frank Hills pH (U) 6.5 [pH] Normal 5-9 [facility] Comment on above: Performed By: #### L IVER, LIPID, TSH, FT3, T4 #### [facility] [address] [address] [address] Frank Hills RBC 0-2 Normal 0-2 [facility] Comment on above: Performed By: #### L IVER, LIPID, TSH, FT3, T4 #### [facility] [address] [place] [address] Dr. Frank Hills SPEC GRAVITY 1.025 Normal 1.005-<=1.025 [facility] Comment on above: Performed By: #### L IVER, LIPID, TSH, FT3, T4 #### [facility] [address] [place] [address] Dr. Frank Hills UA PROTEIN Negative Normal NEGATIVE/ TRACE [facility] Comment on above: Performed By: #### L IVER, LIPID, TSH, FT3, T4 #### [facility] [address] [place] [address] Dr. Frank Hills Urobilinogen Qn (U) 0.2 {Flaquita'U}/dL Normal 0.2 - 1. 0 [facility] Comment on above: Performed By: #### L IVER, LIPID, TSH, FT3, T4 #### [facility] [address] [place] [address] Dr. Frank Hills WBC 0-2 Abnormal NONE SEEN [facility] Comment on above: Performed By: #### L IVER, LIPID, TSH, FT3, T4 #### [facility] [address] [place] [address] Dr. Frank Hills C3 and C4 COMPLEMENTon 04-21 Complement C3, Serum 171 mg/dL Critically high 82-167 [facility] Comment on above: Performed By: #### L IVER, LIPID, TSH, FT3, T4 #### [facility] [address] [place] [address] Dr. Frank Hills Complement C4, Serum 40 mg/dL Critically high 12-38 [facility] Comment on above: Performed By: #### L IVER, LIPID, TSH, FT3, T4 #### [facility] [address] [place] [address] Dr. Frank Hills COMPLEMENT TOTAL (CH50)on Complement, Total (CH50) >60 Normal >41 [facility] Comment on above: Result Comment: Age [...] L IVER, LIPID, TSH, FT3, T4 #### [facility] [address] [address] [address] Frank Hills CBC AUTO DIFFon 04-20-2022 BASO # 0.0 103/ul Normal 0.0-0.1 [facility] Comment on above: Performed By: #### L IVER, LIPID, TSH, FT3, T4 #### [facility] [address] [address] [address] Frank Hills Basophils/100 WBC (Bld) 0.4 % Normal 0.2-2.0 [facility] Comment on above: Performed By: #### L IVER, LIPID, TSH, FT3, T4 #### [facility] [address] [address] [address] Frank iHlls EO # 0.1 103/ul Normal 0.0-0.7 [facility] Comment on above: Performed By: #### L IVER, LIPID, TSH, FT3, T4 #### [facility] [address] [address] [address] Frank Hills Eosinophils/100 WBC (Bld) 1.7 % Normal 0.9-7.0 [facility] Comment on above: Performed By: #### L IVER, LIPID, TSH, FT3, T4 #### [facility] [address] [address] [address] Frank Hills Erythrocyte distribution width (RBC) [Ratio] 13.2 % Normal 11.0-15.0 [facility] Comment on above: Performed By: #### L IVER, LIPID, TSH, FT3, T4 #### [facility] [address] [place] [address] Dr. Frank Hills Hematocrit (Bld) [Volume fraction] 39.6 % Normal 36.0-48.0 [facility] Comment on above: Performed By: #### L IVER, LIPID, TSH, FT3, T4 #### [facility] [address] [place] [address] Dr. Frank Hills Hemoglobin (Bld) [Mass/Vol] 12.7 g/dL Normal 12.0-16.0 [facility] Comment on above: Performed By: #### L IVER, LIPID, TSH, FT3, T4 #### [facility] [address] [place] [address] Dr. Frank Hills IG # 0.02 10e3/ul Normal 0.00-0.03 [facility] Comment on above: Performed By: #### L IVER, LIPID, TSH, FT3, T4 #### [facility] [address] [place] [address] Dr. Frank Hills IG % 0.4 % Normal 0.0-0.5 [facility] Comment on above: Performed By: #### L IVER, LIPID, TSH, FT3, T4 #### [facility] [address] [place] [address] Dr. Frank Hills LYMPH # 0.9 103/ul Critically low 1.2-3.8 [facility] Comment on above: Performed By: #### L IVER, LIPID, TSH, FT3, T4 #### [facility] [address] [place] [address] Dr. Frank Hills Lymphocytes/100 WBC (Bld) 17.3 % Critically low 20.5-60.0 [facility] Comment on above: Performed By: #### L IVER, LIPID, TSH, FT3, T4 #### [facility] [address] [place] [address] Dr. Frank Hills MANUAL DIFF REQ NO Normal [facility] Comment on above: Performed By: #### L IVER, LIPID, TSH, FT3, T4 #### [facility] [address] [place] [address] Dr. Frank Hills MCH (RBC) [Entitic mass] 33.7 pg Normal 26.7-34.0 [facility] Comment on above: Performed By: #### L IVER, LIPID, TSH, FT3, T4 #### [facility] [address] [place] [address] Dr. Frank Hills MCHC (RBC) [Mass/Vol] 32.1 g/dL Normal 29.9-35.2 [facility] Comment on above: Performed By: #### L IVER, LIPID, TSH, FT3, T4 #### [facility] [address] [place] [address] Dr. Frank Hills MCV (RBC) [Entitic vol] 105.0 fL Critically high 81.0-99.0 [facility] Comment on above: Performed By: #### L IVER, LIPID, TSH, FT3, T4 #### [facility] [address] [place] [address] Dr. Frank Hills MONO # 0.5 103/ul Normal 0.3-0.8 [facility] Comment on above: Performed By: #### L IVER, LIPID, TSH, FT3, T4 #### [facility] [address] [place] [address] Dr. Frank Hills Monocytes/100 WBC (Bld) 8.9 % Normal 1.7-12.0 [facility] Comment on above: Performed By: #### L IVER, LIPID, TSH, FT3, T4 #### [facility] [address] [place] [address] Dr. Frank Hills NEUT # 3.7 103/ul Normal 1.4-6.5 [facility] Comment on above: Performed By: #### L IVER, LIPID, TSH, FT3, T4 #### [facility] [address] [place] [address] Dr. Frank Hills Neutrophils/100 WBC (Bld) 71.3 % Normal 43.0-75.0 [facility] Comment on above: Performed By: #### L IVER, LIPID, TSH, FT3, T4 #### [facility] [address] [address] [address] Frank Hills Platelet mean volume (Bld) [Entitic vol] 8.9 fL Critically low 9.5-13.5 [facility] Comment on above: Performed By: #### L IVER, LIPID, TSH, FT3, T4 #### [facility] [address] [address] [address] Frank Hills PLT 198 103/ul Normal 150-450 [facility] Comment on above: Performed By: #### L IVER, LIPID, TSH, FT3, T4 #### [facility] [address] [address] [address] Frank Hills RBC 3.77 106/ul Critically low 4.20-5.40 [facility] Comment on above: Performed By: #### L IVER, LIPID, TSH, FT3, T4 #### [facility] [address] [address] [address] Frank Hills WBC 5.2 103/ul Normal 4.0-11.0 [facility] Comment on above: Performed By: #### L IVER, LIPID, TSH, FT3, T4 #### [facility] [address] [place] [address] Dr. Frank Hills [facility] EXAMINATION: MRI BRA IN [facility], 04/20/2022 9:23 AM EDT HISTORY: Headache COMPARISON: [...] CHARO MAY Date: 2022-04-20 16:44 Normal [facility] PROF 14(COMP METB)on 022 Albumin [Mass/Vol] 4.0 g/dL Normal 3.4-5.0 [facility] Comment on above: Performed By: #### L IVER, LIPID, TSH, FT3, T4 #### [facility] [address] [place] [address] Dr. Frank Hills Albumin/Globulin [Mass ratio] 1.1 {ratio} Normal [facility] Comment on above: Performed By: #### L IVER, LIPID, TSH, FT3, T4 #### [facility] [address] [address] [address] Frank Hills ALP [Catalytic activity/Vol] 68 U/L Normal 46-116 [facility] Comment on above: Performed By: #### L IVER, LIPID, TSH, FT3, T4 #### [facility] [address] [address] [address] Frank Hills ALT [Catalytic activity/Vol] 35 U/L Normal 14-59 [facility] Comment on above: Performed By: #### L IVER, LIPID, TSH, FT3, T4 #### [facility] [address] [address] [address] Frank Hills Anion gap [Moles/Vol] 10.1 mmol/L Normal [facility] Comment on above: Performed By: #### L IVER, LIPID, TSH, FT3, T4 #### [facility] [address] [address] [address] Frank Hills AST [Catalytic activity/Vol] 31 U/L Normal 15-37 [facility] Comment on above: Performed By: #### L IVER, LIPID, TSH, FT3, T4 #### [facility] [address] [address] [address] Frank Hills Bilirubin [Mass/Vol] 0.9 mg/dL Normal 0.2-1.0 [facility] Comment on above: Performed By: #### L IVER, LIPID, TSH, FT3, T4 #### [facility] [address] [address] [address] Frank Hills Calcium [Mass/Vol] 9.0 mg/dL Normal 8.5-10.1 [facility] Comment on above: Performed By: #### L IVER, LIPID, TSH, FT3, T4 #### [facility] [address] [place] [address] Dr. Frank Hills Chloride [Moles/Vol] 104 mmol/L Normal 98-107 [facility] Comment on above: Performed By: #### L IVER, LIPID, TSH, FT3, T4 #### [facility] [address] [place] [address] Dr. Frank Hills CO2 [Moles/Vol] 29.7 mmol/L Normal 21.0-32.0 [facility] Comment on above: Performed By: #### L IVER, LIPID, TSH, FT3, T4 #### [facility] [address] [place] [address] Dr. Frank Hills Creatinine [Mass/Vol] 0.68 mg/dL Normal 0.55-1.02 [facility] Comment on above: Performed By: #### L IVER, LIPID, TSH, FT3, T4 #### [facility] [address] [place] [address] Dr. Frank Hills EGFR-AF LIBYAN >60 Normal >=60 [facility] Comment on above: Performed By: #### L IVER, LIPID, TSH, FT3, T4 #### [facility] [address] [place] [address] Dr. Frank Hills EGFR-NON AF LIBYAN >60 Normal >=60 [facility] Comment on above: Performed By: #### L IVER, LIPID, TSH, FT3, T4 #### [facility] [address] [place] [address] Dr. Frank Hills Globulin (S) [Mass/Vol] 3.5 g/dL Normal [facility] Comment on above: Performed By: #### L IVER, LIPID, TSH, FT3, T4 #### [facility] [address] [place] [address] Dr. Frank Hills Glucose [Mass/Vol] 92 mg/dL Normal 74-106 [facility] Comment on above: Performed By: #### L IVER, LIPID, TSH, FT3, T4 #### [facility] [address] [place] [address] Dr. Frank Hills Potassium [Moles/Vol] 3.8 mmol/L Normal 3.5-5.1 [facility] [facility] Comment on above: Performed By: #### L IVER, LIPID, TSH, FT3, T4 #### [facility] [address] [place] [address] Dr. Frank Hills Protein [Mass/Vol] 7.5 g/dL Normal 6.4-8.2 [facility] Comment on above: Performed By: #### L IVER, LIPID, TSH, FT3, T4 #### [facility] [address] [place] [address] Dr. Frank Hills Sodium [Moles/Vol] 140 mmol/L Normal 136-145 [facility] Comment on above: Performed By: #### L IVER, LIPID, TSH, FT3, T4 #### [facility] [address] [place] [address] Dr. Frank Hills Urea nitrogen [Mass/Vol] 14.0 mg/dL Normal 7.0-18.0 [facility] Comment on above: Performed By: #### L IVER, LIPID, TSH, FT3, T4 #### [facility] [address] [place] [address] Dr. Frank Hills Urea nitrogen/Creatinine [Mass ratio] 20.6 mg/mg Normal [facility] Comment on above: Performed By: #### L IVER, LIPID, TSH, FT3, T4 #### [facility] [address] [address] [address] Frank Hills SED RATE [facility] 2021 SED RATE 6 mm/hr Normal <=30 [facility] Comment on above: Performed By: #### S EDR #### [facility] [address] [place] [address] Dr. Frank Hills UA RANDOM W/MICROSCOPICon BACTERIA NONE SEEN Normal NONE SEEN [facility] Comment on above: Performed By: #### L IVER, LIPID, TSH, FT3, T4 #### [facility] [address] [place] [address] Dr. Frank Hills Bilirubin Ql (U) Negative Normal NEGATIVE [facility] Comment on above: Performed By: #### L IVER, LIPID, TSH, FT3, T4 #### [facility] [address] [place] [address] Dr. Frank Hills CAST NONE SEEN Normal NONE SEEN [facility] Comment on above: Performed By: #### L IVER, LIPID, TSH, FT3, T4 #### [facility] [address] [place] [address] Dr. Frank Hills Clarity (U) CLEAR Normal CLEAR [facility] Comment on above: Performed By: #### L IVER, LIPID, TSH, FT3, T4 #### [facility] [address] [place] [address] Dr. Frank Hills Color (U) LT. YELLOW Normal YELLOW [facility] Comment on above: Performed By: #### L IVER, LIPID, TSH, FT3, T4 #### [facility] [address] [place] [address] Dr. Frank Hills Crystals LM Nom (Urine sed) NONE SEEN Normal NONE SEEN [facility] Comment on above: Performed By: #### L IVER, LIPID, TSH, FT3, T4 #### [facility] [address] [place] [address] Dr. Frank Hills Epithelial cells LM Ql (Urine sed) RARE Normal NONE SEEN /RARE [facility] Comment on above: Performed By: #### L IVER, LIPID, TSH, FT3, T4 #### [facility] [address] [address] [address] Frank Hills Glucose Ql (U) Negative Normal NEGATIVE [facility] Comment on above: Performed By: #### L IVER, LIPID, TSH, FT3, T4 #### [facility] [address] [address] [address] Frank Hills Hemoglobin Ql (U) Negative Normal NEGATIVE [facility] Comment on above: Performed By: #### L IVER, LIPID, TSH, FT3, T4 #### [facility] [address] [address] [address] Frank Hills Ketones Ql (U) Negative Normal NEGATIVE [facility] Comment on above: Performed By: #### L IVER, LIPID, TSH, FT3, T4 #### [facility] [address] [address] [address] Frank Hills LEUKOCYTES Negative Normal NEGATIVE [facility] Comment on above: Performed By: #### L IVER, LIPID, TSH, FT3, T4 #### [facility] [address] [address] [address] Frank Hills MUCOUS TRACE Abnormal NONE SEEN [facility] Comment on above: Performed By: #### L IVER, LIPID, TSH, FT3, T4 #### [facility] [address] [address] [address] Frank Hills Nitrite Ql (U) Negative Normal NEGATIVE [facility] Comment on above: Performed By: #### L IVER, LIPID, TSH, FT3, T4 #### [facility] [address] [address] [address] Frank Hills pH (U) 6.0 [pH] Normal 5-9 [facility] Comment on above: Performed By: #### L IVER, LIPID, TSH, FT3, T4 #### [facility] [address] [address] [address] Frank Hills RBC NONE SEEN Abnormal 0-2 [facility] Comment on above: Performed By: #### L IVER, LIPID, TSH, FT3, T4 #### [facility] [address] [address] [address] Frank Hills SPEC GRAVITY 1.020 Normal 1.005-<=1.025 [facility] Comment on above: Performed By: #### L IVER, LIPID, TSH, FT3, T4 #### [facility] [address] [address] [address] Frank Hills UA PROTEIN Negative Normal NEGATIVE/ TRACE [facility] Comment on above: Performed By: #### L IVER, LIPID, TSH, FT3, T4 #### [facility] [address] [address] [address] Frank Hills Urobilinogen Qn (U) 0.2 {Flaquita'U}/dL Normal 0.2 - 1. 0 [facility] Comment on above: Performed By: #### L IVER, LIPID, TSH, FT3, T4 #### [facility] [address] [address] [address] Frank Hills WBC NONE SEEN Normal NONE SEEN [facility] Comment on above: Performed By: #### L IVER, LIPID, TSH, FT3, T4 #### [facility] [address] [place] [address] Dr. Frank Hills Ambulatory Clinical Summaryo 10-27-2021 Ambulatory Clinical Summary {[id number]}CD:[id number] Normal [facility] Patient Educationon 10-27-20 Patient Education Urology [...] nerve stimulation). ? For women, using a director of graduate medical education to prevent urine leaks. This is a [...] after experiencing incontinence. General instructions ? Take fnut-xhg-gbfkpwj and prescription medicines only as (more content not included)... Normal [facility] Urology Office/Clinic Noteon 10-27-2021 Urology Office/Clinic Note Chief Complaint 6 month check w/PVR [facility] Staff Danyelle is a 66 y/o female [...] urine and/or bladder capacity by US- non-imaging 96487 Urnls Dip Stick Auto w/o Microscopy POC 61755 I have reviewed the previous health record information and history for this patient from Dr. Ramos Follow-up With When Contact Information Richard Leal MD, Maximo Dhaliwal, URO Only if needed [facility] [address], [place] [address]- Additional Instructions: Patient Education Urinary Incontinence I, [...] Diverticulosis Dysuria Encounter for screening colonoscopy for uvw-usyo-jdas patient Hemifacial spasm History of shingles Hyperlipidemia Hypertension Hyperthyroidism Insomnia Nocturia Osteoarthritis Polyneuropathy Post-void dribbling Raynaud phenomenon Recurrent UTI Rosacea Urethral stricture Historical No qualifying data Procedure/Surgical History Hip replacement (12/13/2016), Fusion of lumbar spine (12/06/2011), Ablation (08/18/2005), Excision of sebaceous cyst (08/27/1999), Arthroscopy of knee, Dilatation and curettage, Excision of ganglion cyst, E (more content not included)... Normal [facility] Comment on above: Result Comment: Elec tronically Signed By: Richard Leal MD, Maximo Dhaliwal\.br\Date and Time Signed: 10/27/21 11:16 EST\.br\Electronically Co-Signed By: Snow Lundberg MA\.br\Date and Time Co-Signed: 10/27/21 11:12 EST Ambulatory Clinical Summaryo n 04-23-2021 Ambulatory Clinical Summary {[id number]}CD:[id number] Normal [facility] Patient Educationon 04-23-20 Patient Education Urinary Frequency The number of [...] It is (more content not included)... Normal [facility] Urology Office/Clinic Noteon 04-23-2021 Urology Office/Clinic [...] procedure, # 2 cap(s), Refills(s) 0, Pharmacy: [facility]/pharmacy #[id number], 172.7, cm, 02/24/21 8:22:00 EDT, Height/Length Dosing, 99.8, kg, 02/24/21 8:21:00 EDT... Urnls Dip Stick Auto w/o Microscopy POC 59651 I have reviewed the previous health record information and history for this pt. from Dr. Ramos. Follow-up With When Contact Information Richard Leal MD, Maximo Dhaliwal, URO [address] [place] [id number]- Additional Instructions: 6mos. pvr Patient Education Urinary [...] Diverticulosis Dysuria Encounter for screening colonoscopy for mgj-dlad-bwkj patient Hemifacial spasm History of shingles Hyperlipidemia Hypertension Hyperthyroidism Insomnia Osteoarthritis Polyneuropathy (more content not included)... Normal [facility] Comment on above: Result Comment: Elec tronically Signed By: Richard Leal MD, Maximo Dhaliwal\.br\Date and Time Signed: 04/23/21 12:21 EDT\.br\Electronically Co-Signed By: Indu Gonzalez MA\.br\Date and Time Co-Signed: 04/23/21 11:40 EDT Coding Summary.on 03-16-2021 Coding Summary. CD:[id number] Gh 0bWw+PGhlYWQ+HU4ILIEhQ 25efUKrqB7XE6zWRH7JDAS EQDRQCQ5MIG4cuSH8RNzqS 2VybiAv SaqfaIFlGX10GMe4ETE7eN jeUXrzqX9jiTSrU8r4EtTi SG40vJ91HTnxIIKyBbA8Bu ZpbjsgbWFy O0caMaBvsPJyPwb+PHRhYm xlIHdpZHRoPScxMDAlJyBz lEigFO3vHy0pVYOmJRGfqY xhcHNlOiBj a4tmRAQaWGlfNK0kyWewS3 KbzSO4MEZev9p8Cr86vIA+ ARUxDZN9xJxkQApwn537Ak Eky8gxRIG0 rZRjCZvvPWR5E51qs9V9GP QtAWHpGSA3yZJ7fX8diTlr icziC7FcfGCyUmN2NSQ8cR IxdI2hzVdv rirwrX5aPya+Q84DGY2DXM SMZW5TFii2W3QtIsnygOH+ OP66IVXhVN38fMNzcRIkq6 ejgNv1XkVj JSWyMEP7jImjSNkkw6RrOR BrV66edPSyc3Z3JOSsySkv uMKvIdFatEO5aS2sUIjzqr bdd5gdjmta Emckh7ifee70mI27Q90cSV pwIGNiNGZ5GQZvQFCymFtk tt9fyK1xVt5+QMfry0wmy4 hncQh3YfSz REDguuRohDchXYB5k0KbDt 81L7QlhJkrq6MoUli5vg06 fSNmd5C2eIT5RTdmJCXefW 1tBGopGyE2 UOWpQgVsvC24mZQoXHhbHp 0qjJrycPbeOW0mBLAghvgx RIPmqJ3hJSBpuLNhbTqxRW 4wNTBpbjtm a900MoOjVBK5ZHIbjDZjU9 UqqX7tOyCkBOGqSBXlZ5Ht zNAbARepL961ORqoCrM8QO ZkixBgX2Fs UVPsmVuaVaH7d0J2Uh2Ug3 PpccirLXK0FYcbCCV5OaCc EzAnVvM6Y3AzEfp5CULgnH crCE8bS0Xc AAVuxmnkxvhcuAJ8BINjIM YzlD26mHRrYXtdRv3js3C6 x270HHXcKHIxtB15Fj8mvL ogMTBwdCBU sM9nsqxje0svpnglKgQrZY ZaGSk2KZi3PDVmjLbjQuNh ZYW1WtW1ZJR8eNFivV4xoI zevplbnE3u Oyc+D14kiW5wPKB0MWQ8dd omAYEzfjNsZU66FU05L1Lr PjwvdGFibGU+PGRpdiBzdH xpSC6dBqQc b5lqj9BxUHksM6WnTAWzKJ vgTdk0KJIqZCI9qUO4fW5r KADrWDrav4C2sWZ9Z4Ojyr Zwqv4eo2mw PXIhPIfuW39jmFQnd8J8QL MhwMI1PRTttDtlZxRljP17 Oyc+FMEdrJxdw4HvNmbsu1 wok7bgbKs9 ZuMoBNHekfGqzBgvVJG5k3 QyIt58O87bLSuhKEEuTXEo SKFpMAAjfOrmrc1abN9lPi 8+PGNvbCB3 hDY0gY3kEWSnJbC0WMyzK7 50DqSuaILcYrhbj4ryj8gz tVx9EpIqUFHpzcAjoHgeLB V9y5BrBf26 B16kKQfuMGOkHCUlZRXeWE TptGdiyp6djD3iEm3+PC9j m2scjd49wP72dYO+PHRkIH M3gFuwHEjk TMFckF7xDLxoWaK8GFTeGx OytC18lMBgKGhiIg4mpGyy yEibEE2wNSLzuxslk870Sz Hjp7baDYWj oNOhGCfrRIF9A49gy6V8TI KnBNVfWTY1qOV8rC2fyAxw bjogbGVmdDsgdmVydGljYW giTWahI542 IHRvcDsnPlBhdGllbnQgTm PzEDe4A8TfHzf8WWMeyXde XP4quUKuDAfhHx7gwJdkhR lwBT2iOIUq ofwtx898AvPkv7ciRNSpgP XcSEseTWX0L91qa2Y4LRMf AIBbNEI8zUP5lE1ckDwddr ogbGVmdDsg czXarAnrIXjfSLbfK576NR RvcDsnPkJpcnRoIERhdGU6 TK39SR07vKGja1E8jHN9R0 BhZGRpbmct jkxmeGP2SHMzFQSeeQ20Kt 8giLjvHi2nWFZfXBE3PRLd wVFtQ3CboI4eErRjQWQxSB FgR5OnrEIf MHnnK164GXyjZiF6OXGinj LaU6LeXNNihUxyVeH0l5P3 Ep1IY3U4YY66XE29xFXgc6 Z8cJB1U8Cr JVCiwjypwgxgoKC1TGHeIN YzbD71Sj6yaNynEa9pIQYt VIW7NGMusNPwH4RbzD1yDb AjMDAwMDAw H9ValZAzHGbhQ209NGxhQp J0SACufsQpX5IqEVRfbBec NyW9y6B6Qx5DIKx1SO60CZ 42vHNww9Y9 dBJ4L0LhGIWsubisemmwgE F3HZDnMZIucP28Qp4tvZmj Pa3xNDBkDNF4DZVvtIEiJ5 KdaK9zZwTa PCQuSRCsX9XxlKHvMGtaN2 77GBvcEsS4HJNnrfBfL1Ev LGUluQkcTiE2r1L3Yf8NWY XyQG25KVD9 zIS6YR68LI31C4ZbLukguE FibGU+PHRhYmxlIHdpZHRo LFfgMBCtJoCbtZadHL9qOm 9yZGVyLWNv qVzmvWRmYqLsw2qxKFAxAO zwPG9taHmoY3MxfWS8PXYd y0v4Cx17W84lT8ShdCZ+PG DlqSM2vHB4 dG3xOlZsXjX0RVrjB411Oa NvvZDuSgtkw0zkn9ggfJk0 DyW6UASeuqUqaMcnQOU9l7 MeTr76H93b IHdpZHRoPSIxNSUiIHZhbG yckg8xqO4lKu9+PGNvbCB3 bIU3rF6lHwMgGlB5AYvqG8 49InRvcCIv Cddvb1oox6wsqJh7OwRtLF PabzHelEhbEFP8g9EnTw30 C7NzaHdiw1DkMrx4fj48nV Hnk8A7eLF5 I8KgBQZvlhehiVVsrIrsKD 9aRZGbmgsfGRHtsY3lKDMd H5v5OkHoYuK6HNiaU5Psbh P5TXRqpDEc RGotCLM9X23ad1C9EATgYL WyFSN8fWM1tK1tjWmrxsjw bGVmdDsgdmVydGljYWwtYW tfS528MQNj mNxbCFUcrN9tYKEtxPUyeW trEN5eSCYvccfwRoJPD3xz JFTLINhURQy9F4LoRbo1BX BxrYxsRK3v qUMqXGwtXl4reOjvsUebWQ 2bBYUrddilMDPjiA2bQZKp sJIkyKfkXS4pEHVmtrpyu9 04TeGdSSF2 UPEjeHOzS4BfhJ9yLcYpEG AiBCAeY4LrzNMjTThbL578 DNbhEbZ7VPLbcsQaB7XhHS FsaWduOiB0 k4H3Vb7jAX6nYi7eMGZmFJ 61SP69zNObn5M9yIF1I3Ep WEGjtwsfmxdmkPV2AJBuBJ ZvyU67cHBb DRdvCd9xf6W3s313TOYuNA EhhP74Kv3pfLsoDUKdjQUN hS3samhvz5gpjidjDqKuXQ TqKRe4UPh9 DPQedVxtKnIzOQZ6KuB6AY H0mMLbjX2gzJshxtstoY7v Oyc+VhuhZOXzeyC0V4JwGu x7NJGhkYby HO6bpGUyBNcxVu0ggOrehA leCL1aFJMzrwunDGFqiQ4l LMUxtDKmbWpoHT2cBRCjwz ouo460CoUe IIY7THAqeGFcA2JhwM0cTf ZuPSGyBNVvR6BumSFuSGnr Q350XUorUoH0GTPmbaDtK4 FsLWFsaWdu RzL7v3P1Dr6NJE5rvYZ1C7 JjRle3BOFraOsbJS6cnMSc CVmlPe9faNilqCouMQ4gHV BpbjtwYWRk lD2qDKMdvVVdiRqxSB2sQJ Aarpneh810HxIlAKR5VBNb pAZyC7EuoP5eXnCmAZBrMA VzH9LtmSTv CBswC033PKhpHhL3KRJslj MfD4FmOVEqnNutCeU4o7U1 Lo2QfRHzRUVwUO55HP62CH 00Z3UtKibp dGFibGU+PHRhYmxlIHdpZH PaIYfsYHQwZhGbeOjfUE7e Vz2sRBShSALkuIkklOOsIb Gpi1gmBCYv NIxfJL9lhYanH1FduHA1CA Uez3d4Kf39Z23pD0BuxOS+ TKUnxFO0jDR9fL5fUbGfOv P6DExzP126 GeNomJGyLkfck7hnj3uizI n3HqUgBTUkrgWqwDnqVBY2 u0RlRh25D54kRRopTAAcVM IyMCUiIHZh yYhvjj7goE8iLv4+PGNvbC A7mKH6dU8bUiMoOrK2EOaa K131YqCmmTBdGftgW80zH1 JvdXA+PHRy Gty9DYBpvYknPT3ywIDnIC cyYu9cLAP8CzUeDjZhXUwo M1GaKGXeicqyqjjfhSX4MZ JiNBFfwT25 Qa5vmIoqSn5sMTHfKJM1ZN EijVNoT4BstB1yOlSqGUBp QCBzY7TfrPVcQSwxA546UR bkDoM9FJWh uqNvB6KrSXByqPskVrJ1x1 O3Dj0RbQkhtTNpET5jZlUw FLp5E8GbEqh4MAQfkKacKO 0ncGFkZGlu Ms8jcOdnlMalNF9tHSKjja yqz525VgLss6bxFYHdiRZc HKjgYTK8G61ib8R5AOVqKI ScCSU6jVI4 rV3ocGvhmirqvZWwaHroev TscLjzJAdsJAdyV906YRJp iXhnTkBELey0Q6KcPqy3FZ PiwLcmLZ9n lGVpYDrdJu7afOmznKsdKF 8pZVHknllnp544JoVrd8dk UXTrqBJuPOzzWMW4U05yo4 P1HWIsJZKc MUC9xAY1gF1edOrzehxqhL VmdDsgdmVydGljYWwtYWxp R671PIBqhAbzUg8XYgf9A1 VfOrf7DKPy gPwhEK9slJWpCYroZn2tvU onqEvdZO6xLYDssuwep030 EfGpz7peCNPodAHlOXwhMG R3Q26lx7U0 FJRzGCYlXXE0yCB5lJ6jjU lnbjogbGVmdDsgdmVydGlj GPojNVmiJ378YZIbrYhaHy BheWVyOjwv dGQ+XA34gu71F4BwEwvfHe j8ZHAjMMM2iQJ3lU7gZQSo NTota7P0iAK9Y0DuhtYeqd 1vz9imJPSq ZTog (more content not included)... Normal [facility] Consent for Procedure/Surger yon 03-16-2021 Consent for Procedure/Surgery [id number]#1. 00CD:127 Normal [facility] IntraOperative Documentson 0 03-16-2021 IntraOperative Documents [id number]#1. 00CD:127 Normal [facility] Consent for Treatmenton 05-0 Consent for Treatment [id number]#1.0 0CD:127 [facility] Main OR Intraoperative Recor don 03-12-2021 Main OR Intraoperative Record IntraOp Document Type FTURO Summary Primary Physician: Maximo Ramos Jr., MD Finalized Date/Time: 03/12/21 13:52:16 Pt. Name: DANYELLE HASKINS/Sex: 1955 Female Med Rec #: [id number] Physician: Maximo Ramos Jr., MD Financial #: [id number] Pt. Type: O Room/Bed: / Admit/Disch: 03/12/21 12:55:35 - Institution: Case Times FTURO Entry 1 Patient Times In Room 03/12/21 13:44:00 Out Room 03/12/21 13:52:00 Procedure Times Start 03/12/21 13:48:00 Stop 03/12/21 13:50:00 Anesthesia Times Last Modified By: Jolly CONROY, Savanna Solis 03/12/21 13:52:11 Case Attendance FTURO Entry 1 Entry 2 Entry 3 Case Attendee Richard Leal MD, Maximo Hines SCALE TESTER, Savanna Azevedo RN, Savanna Solis Role Performed Surgeon - Primary Scrub - Primary Processing Operator - Primary Time In 03/12/21 13:44:00 03/12/21 13:44:00 03/12/21 13:44:00 Time Out 03/12/21 13:52:00 03/12/21 13:52:00 03/12/21 13:52:00 Procedure CYSTOSCOPY LOCAL WITH CYSTOSCOPY LOCAL WITH CYSTOSCOPY LOCAL WITH URETHRAL DILATION(.) URETHRAL DILATION(.) URETHRAL DILATION(.) Comments Last Modified By: Jolly CONROY, Savanna Azevedo RN, Savanna Kincaid RN 03/12/21 13:52:13 03/12/21 13:52:13 03/12/21 13:52:13 Surgical Procedures FTURO Entry 1 Procedure Description Procedure CYSTOSCOPY LOCAL WITH Modifiers . URETHRAL DILATION Surgeon Description CYSTOSCOPY LOCAL WITH URETHRAL DILATION Primary Procedure Yes Primary Surgeon Richard Leal MD, Maximo Dhaliwal Start 03/12/21 13:48:00 Stop 03/12/21 13:50:00 Anesthesia [...] Maximo Ramos Jr., MD, Verified (If Participants Savanna Hines CST Applicable) Jolly Caraballo RN, Kimberly Y Time [...] By: Savanna Azevedo RN 03/12/21 13:52 Normal [facility] Main OR Preoperative Recordo n 03-12-2021 Main OR Preoperative Record Holding Area Document Type FTURO Summary Primary Physician: Maximo Ramos Jr., MD Finalized Date/Time: 03/12/21 13:23:03 Pt. Name: DANYELLE HASKINS D.O.B./Sex: 1955 Female Med Rec #: [id number] Physician: Maximo Ramos Jr., MD Financial #: [id number] Pt. Type: O Room/Bed: / Admit/Disch: 03/12/21 [...] 13:08 Savanna Azevedo RN 03/12/21 13:23 Normal [facility] Operative Reporton Operative Report Patient: DANYELLE HASKINS Age: 65 years Sex: Female : 1955 Associated Diagnoses: None Author: Maximo Ramos Jr., MD Procedure Operative Information Details: Date/ Time: 03/12/2021 [...] urine. The Urethra was dilated to: 28 Persian w/ sounds. Devices Implanted: None. Removal: Cystoscope is removed, The patient tolerated it well. Postoperative Information Discharge: Patient is discharged home with antibiotic coverage, Follow up arranged. [facility] Comment on above: Result Comment: Elec tronically Signed By: Richard Leal MD, Maximo Dhaliwal\.br\Date and Time Signed: 03/12/21 13:53 EDT LARGE [...] complications The patient was prepped with Betadine. [facility] RAD - Ultrasound Reporton RAD - Ultrasound Report [id number]#1.0 0CD:127 Normal [facility] Physician Referralon 021 Physician Referral [id number]#1.00 CD:127 Normal [facility] Ambulatory Clinical Summaryo n 02-24-2021 Ambulatory Clinical Summary {[id number] f-[id number]}CD:[id number] Normal [facility] Patient Educationon 02-25-20 21 Patient Education Urinary [...] Document Reviewed: 12/01/2012 ExitCare? Patient Information ?[address] [facility] Urology Office/Clinic Noteon 02-24-2021 Urology Office/Clinic Note Chief Complaint New patient recurring UTI sxs This patient is a 65-year-old female with a history of recurrent urinary tract infections. She was recurrent infections. She is been treated several times with oral antibiotics for symptoms of dysuria frequency and urgency continue to recur. She is here today to discuss treatment options to establish urologic care. [facility] Staff New patient Danyelle is a 65 [...] Will order Local anesthesia. ABX sent to [facility] in [place]. Ordered: Urology Procedure Order US Renal 2. Dysuria (R30.0: Dysuria) Moderate. Ordered: Urnls Dip Stick Auto w/o Microscopy POC 74541 Urology Procedure Order US Renal 3. Nocturia [...] procedure, # 2 cap(s), Refills(s) 0, Pharmacy: [facility]/pharmacy #[id number], 172.7, cm, 02/24/21 8:22:00 EDT, Height/Length Dosing, 99.8, kg, 02/24/21 8:21:00 (more content not included)... Normal [facility] Comment on above: Result Comment: Elec tronically Signed By: Richard Leal MD, Maximo Dhaliwal\.br\Date and Time Signed: 02/24/21 09:35 EDT\.br\Electronically Co-Signed By: Indu Gonzalez MA\.br\Date and Time Co-Signed: 02/24/21 08:56 EDT LARGE JOINT/BURSA INJECTION AND/OR ASPIRATION: Melvin kneeon 11-19-2020 New Mcclure MD 11/27/2020 2:34 PM LARGE JOINT/BURSA INJECTION AND/OR ASPIRATION: Melvin desir Date/Time: 11/19/2020 2:10 PM Supporting Documentation Indications: [...] complications The patient was prepped with Betadine. [place] CT UPPER EXTREMITY WO CONTRA ST RIGHTon 03-10-2020 CT UPPER EXTREMITY WO CONTRAST RIGHT [facility] Department of Radiology [address] [place] [phone] ======== Patient Name: DANYELLE HASKNIS : 1955 Sex: F Age: Race: White Pt. Location: Patient Status: O Ordered Date: 03/10/2020 2:25:00 PM Completed Date: 03/10/2020 04:00 PM Requesting Provider: JOE ZUNIGA Attending Provider: JOE ZUNIGA Report Copy To: YULISA BATRES Signs & Symptoms: S42.201A Unsp fracture of upper end of right humerus, init I10 History: [place] Patient to go to clinic after call results to [phone] [facility] clinic NO MEDICARE/BC CPT CODE 68212 *MLA Comments: right shoulder Exam: CT UPPER [...] reports Electronically signed: Abdelrahman Constantino. Transcribed by: [email or web address], User Resident: ISABELL MARKHAM Electronically Signed by: ABDELRAHMAN CONSTANTINO @ 03/10/2020 04:46 PM I personally read this/these film(s) with this resident Normal [facility] Comment on above: Order Comment: right shoulder SHOULDER RIGHTon 03-10-2020 SHOULDER RIGHT [facility] Department of Radiology [address] [place] [id number] ======== Patient Name: DANYELLE HASKINS : 1955 Sex: F Age: Race: White Pt. Location: Patient Status: O Ordered Date: 03/10/2020 2:05:00 PM Completed Date: 03/10/2020 02:13 PM Requesting Provider: JOE ZUNIGA Attending Provider: Report Copy To: Signs & Symptoms: S42.201A Unsp fracture of upper end of right humerus, init I10 History: [place] Comments: , Views (X-RAY, SHOULDER): Axillary , [...] If clinical correlation is suggested. Approved by:Isabell Smith03/10/2020 4:20 PM. I, Abdelrahman Constantino,have reviewed the images and reports Electronically signed: Abdelrahman Constantino. Transcribed by: [email or web address], User Resident: ISABELL MARKHAM Electronically Signed by: ABDELRAHMAN CONSTANTINO @ 03/10/2020 04:48 PM I personally read this/these film(s) with this resident Normal [facility] Comment on above: Order Comment: , Shasha ws (X-RAY, SHOULDER): Axillary , Weight Bearing?: [...] with no immediate complications Preparation: with Betadine. [email or web address] CBC, EDIF, PLATELETon 2018 ABSOLUTE BASOPHIL COUNT 0.[address] Basophils/100 WBC (Bld) 0.6 % 0 - 2 % [address] Differential cell count method Nom (Bld) AUTO DIFF % [address] Eosinophils #/vol (Bld) 0.00 10*3/uL X10 [address] Eosinophils/100 WBC (Bld) 1.0 % 0 - 11 % [address] Erythrocyte distribution width Ratio (RBC) 14.2 % 11.5 - 14.5 % [address] Hematocrit Volume Fraction (Bld) 33.5 % Low 36 - 48 % [address] Hemoglobin mass conc (Bld) 11.5 g/dL Low [address] Interpretation and review of laboratory results Abnormal [address] Lymphocytes #/vol (Bld) 0.70 10*3/uL X10 [address] Lymphocytes/100 WBC (Bld) 16.1 % Low 20 - 55 % [address] [facility] Entitic mass (RBC) 34.6 pg 26 - [address] MCHC mass conc (RBC) 34.2 g/dL [place] [address] [facility] Entitic volume (RBC) 101.[address] Monocytes #/vol (Bld) 0.4 10*3/uL X10 [address] Monocytes/100 WBC (Bld) 9.9 % 0 - 10 % [address] Neutrophils #/vol (Bld) 3.3 10*3/uL [address] Neutrophils/100 WBC (Bld) 72.4 % 37 - 75 % [address] Platelet mean volume Entitic volume (Bld) 7.[address] Platelets #/vol (Bld) 191 10*3/uL [address] RBC #/vol (Bld) 3.31 10*6/uL Low [address] WBC #/vol (Bld) 4.5 10*3/uL [address] CBC, EDIF, PLATELETon 2018 ABSOLUTE BASOPHIL COUNT 0.[address] Basophils/100 WBC (Bld) 0.2 % 0 - 2 % [address] Differential cell count method Nom (Bld) AUTO DIFF % [address] Eosinophils #/vol (Bld) 0.00 10*3/uL X10 [address] Eosinophils/100 WBC (Bld) 0.1 % 0 - 11 % [address] Erythrocyte distribution width Ratio (RBC) 13.8 % 11.5 - 14.5 % [address] Hematocrit Volume Fraction (Bld) 30.2 % Low 36 - 48 % [address] Hemoglobin mass conc (Bld) 10.5 g/dL Low [address] Interpretation and review of laboratory results Abnormal [address] Lymphocytes #/vol (Bld) 0.50 10*3/uL X10 [address] Lymphocytes/100 WBC (Bld) 8.9 % Low 20 - 55 % [address] [facility] Entitic mass (RBC) 34.8 pg 26 - 35 PG [address] MCHC mass conc (RBC) 34.8 g/dL [address] MCV Entitic volume (RBC) 99.[address] Monocytes #/vol (Bld) 0.6 10*3/uL X10 [address] Monocytes/100 WBC (Bld) 10.2 % High 0 - 10 % [address] Neutrophils #/vol (Bld) 4.5 10*3/uL [address] Neutrophils/100 WBC (Bld) 80.6 % High 37 - 75 % [address] Platelet mean volume Entitic volume (Bld) 7.[address] Platelets #/vol (Bld) 181 10*3/uL [address] RBC #/vol (Bld) 3.02 10*6/uL Low [address] WBC #/vol (Bld) 5.6 10*3/uL [address] CBC, EDIF, PLATELETon 2018 ABSOLUTE BASOPHIL COUNT 0.[address] Basophils/100 WBC (Bld) 0.2 % 0 - 2 % [address] Differential cell count method Nom (Bld) AUTO DIFF % [address] Eosinophils #/vol (Bld) 0.00 10*3/uL X10 [address] Eosinophils/100 WBC (Bld) 0.7 % 0 - 11 % [address] Erythrocyte distribution width Ratio (RBC) 13.9 % 11.5 - 14.5 % [address] Hematocrit Volume Fraction (Bld) 33.6 % Low 36 - 48 % [address] Hemoglobin mass conc (Bld) 11.5 g/dL Low [address] Interpretation and review of laboratory results Abnormal [address] Lymphocytes #/vol (Bld) 0.70 10*3/uL X10 [address] Lymphocytes/100 WBC (Bld) 14.4 % Low 20 - 55 % [address] MCH Entitic mass (RBC) 34.7 pg 26 - [address] MCHC mass conc (RBC) 34.1 g/dL [place] [address] MCV Entitic volume (RBC) 101.8 fL High [address] Monocytes #/vol (Bld) 0.5 10*3/uL X10 [address] Monocytes/100 WBC (Bld) 9.8 % 0 - 10 % [address] Neutrophils #/vol (Bld) 3.7 10*3/uL [address] Neutrophils/100 WBC (Bld) 74.9 % 37 - 75 % [address] Platelet mean volume Entitic volume (Bld) 7.2 fL Low [address] Platelets #/vol (Bld) 202 10*3/uL [address] RBC #/vol (Bld) 3.30 10*6/uL Low [address] WBC #/vol (Bld) 4.9 10*3/uL [address] REPEAT ABO/RH (D) TYPINGon 0 11-21-2018 ABO and Rh group Nom (Bld ) Positive [address] SCREEN: MRSA ONLY, NARES (IS OLATION SCREEN)on 11-21-2018 MRSA isol Org specific cx Ql (Nose) Negative [address] STAPHYOCOCCUS AUREUS BY PCR Negative [address] Comment on above: TESTING PERFORMED BY PCR [...] or acute fracture. RADIOLOGY Basic Metabolic Panelon 10- Calcium 9.2 mg/dL Normal 8.4-10.2 [facility] Comment on above: Performed By: #### C HEM8 ####Unless otherwise noted, all testing performed by [facility] [place], [place] [phone]: [id number] Director: Yo Araujo M.D. Chloride 110 mmol/L High 98-108 [facility] Comment on above: Performed By: #### C HEM8 ####Unless otherwise noted, all testing performed by [address] [phone]: [id number] Director: Yo Araujo M.D. CO2 27 mmol/L Normal 21-32 [facility] Comment on above: Performed By: #### C HEM8 ####Unless otherwise noted, all testing performed by [address] [phone]: [id number] Director: Yo Araujo M.D. Creatinine 0.60 mg/dL Normal 0.60-1.20 [facility] Comment on above: Performed By: #### C HEM8 ####Unless otherwise noted, all testing performed by [address] [phone]: [id number] Director: Yo Araujo M.D. eGFR (black) mL/min/{1.73_m2} Normal [facility] Comment on above: Result Comment: Afri can Somali GFR Calc Performed By: #### C HEM8 ####Unless otherwise noted, all testing performed by [address] [phone]: [id number] Director: Yo Araujo M.D. eGFR (non-black) mL/min/{1.73_m2} Normal [facility] Comment on above: Result Comment: Non- [...] ####Unless otherwise noted, all testing performed by [address] [phone]: [id number] Director: Yo Araujo M.D. Glucose mass conc 87 mg/dL Normal 70-99 [facility] Comment on above: Result Comment: This test result might be falsely depressed or falsely elevated onsamples drawn from patients taking Sulfasalazine and Sulfapyridine.Venipuncture should occur prior to taking either of these drugs. Performed By: #### C HEM8 ####Unless otherwise noted, all testing performed by [place] [phone]: [id number] Director: Yo Araujo M.D. Potassium molar conc 4.2 mmol/L Normal 3.5-5.1 [facility] Comment on above: Performed By: #### C HEM8 ####Unless otherwise noted, all testing performed by [place] [phone]: [id number] Director: Yo Araujo M.D. Sodium 143 mmol/L Normal 135-145 [facility] Comment on above: Performed By: #### C HEM8 ####Unless otherwise noted, all testing performed by [address] [phone]: [id number] Director: Yo Araujo M.D. Urea nitrogen 10 mg/dL Normal 8-25 [facility] Comment on above: Performed By: #### C HEM8 ####Unless otherwise noted, all testing performed by [place] [phone]: [id number] Director: Yo Araujo M.D. [facility] 08-15-2017 [facility] Report Type: OrthopedicDictated by: To be signed by: Transcribed by: Transcribed D/ Dictation D/ Report: DATE OF VISIT: 08/11/2017 HISTORY OF PRESENT ILLNESS: Ms. Haskins underwent left patellar tendon repair and inferior partial patellectomy on 07/18/2017 three weeks ago. She is doing well. She is at a skilled nursing with a knee immobilizer locked out in extension and has been non-weightbearing. She is doing very well. She is happy with her recovery to date. She is having minimal pain, using only Tylenol at this time. She is planning to be discharged from the skilled nursing next week when she has a wheelchair [...] her that she may shower at the skilled nursing only using a shower chair with a shower stool. The knee should be in extension before the brace comes off and should remain in extension until the brace goes back on. She should not stand while not wearing the brace. This was all relayed via instructions to the skilled nursing. We will see her back in three weeks. Dictated by KAREEM Croft, for Dr. Mcclure. 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 She is an established patient of [facility]. She was last seen on 04/27/2017, diagnosed [...] cardiology. The patient is followed by Dr. Vyoo of pain management. The patient is followed by Dr. Monaco, a business operations director and by Dr. Lili Parks, a neurologist. [...] of surgery and 2 weeks postoperatively. 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 Normal [facility] Repor ton 07-26-2017 [...] use. The patient is seen by a business operations director, has a pain specialist, and a neurologist. [...] 2) Orders reviewed and continue same. Normal [facility] C. difficile Assayon 017 C. difficile interpretation Negative Normal [facility] Comment on above: Result Comment: Rapi d test procedural control acceptable. Performed By: #### z CDIF ####Unless otherwise noted, all testing performed by [address] [phone]: [id number] Director: Yo Araujo M.D. Specimen Acceptable (CDIF)on 07-24-2017 Specimen Acceptable (CDIF) YES Normal [facility] Comment on above: Result Comment: C. d ifficile testing result(s) to follow. Performed By: #### C DSPEC ####Unless otherwise noted, all testing performed by [address] [phone]: [id number] Director: Yo Araujo M.D. CBC with Diffon 07-23-2017 Basophils Auto #/vol (Bld) 0.0 K/mcL Normal 0-0.2 [facility] Comment on above: Performed By: #### C BCDIF, CMET, TSH ####Unless otherwise noted, all testing performed by [address] [phone]: [id number] Director: Yo Araujo M.D. Basophils/100 WBC Auto (Bld) 0.5 % Normal [facility] Comment on above: Performed By: #### C BCDIF, CMET, TSH ####Unless otherwise noted, all testing performed by [address], [place] [phone]: [id number] Director: Yo Araujo M.D. Eosinophils 0.1 K/mcL Normal 0-0.5 [facility] Comment on above: Performed By: #### C BCDIF, CMET, TSH ####Unless otherwise noted, all testing performed by [address] [phone]: [id number] Director: Yo Araujo M.D. Eosinophils/100 leukocytes 1.7 % Normal [facility] Comment on above: Performed By: #### C BCDIF, CMET, TSH ####Unless otherwise noted, all testing performed by [address]CLIA: [id number] Director: Yo Araujo M.D. Erythrocyte distribution width Auto Ratio (RBC) 14.6 % High 10.0-14.4 [facility] Comment on above: Performed By: #### C BCDIF, CMET, TSH ####Unless otherwise noted, all testing performed by [address] [phone]: [id number] Director: Yo Araujo M.D. Erythrocytes (RBC) 3.32 M/mcL Low 3.7-5.0 [facility] Comment on above: Performed By: #### C BCDIF, CMET, TSH ####Unless otherwise noted, all testing performed by [address] [phone]: [id number] Director: Yo Araujo M.D. Hematocrit (HCT) 33.9 % Low 34.4-44.8 [facility] Comment on above: Performed By: #### C BCDIF, CMET, TSH ####Unless otherwise noted, all testing performed by [address] [phone]: [id number] Director: Yo Araujo M.D. Hemoglobin mass conc (Bld) 11.8 g/dL Normal 11.6-15.4 [facility] Comment on above: Performed By: #### C BCDIF, CMET, TSH ####Unless otherwise noted, all testing performed by [address] [phone]: [id number] Director: Yo Araujo M.D. Lymphocytes 0.8 K/mcL Low 1.0-3.7 [facility] Comment on above: Performed By: #### C BCDIF, CMET, TSH ####Unless otherwise noted, all testing performed by [address] [phone]: [id number] Director: Yo Araujo M.D. Lymphocytes/100 leukocytes 18.3 % Normal [facility] Comment on above: Performed By: #### C BCDIF, CMET, TSH ####Unless otherwise noted, all testing performed by [address] [phone]: [id number] Director: Yo Araujo M.D. MCH 35.6 pg High 27.9-33.9 [facility] Comment on above: Performed By: #### C BCDIF, CMET, TSH ####Unless otherwise noted, all testing performed by [facility] [address] [phone]: [id number] Director: Yo Araujo M.D. [facility] mass conc (RBC) 34.8 g/dL Normal 33.1-35.1 [facility] Comment on above: Performed By: #### C BCDIF, CMET, TSH ####Unless otherwise noted, all testing performed by [address] [phone]: [id number] Director: Yo Araujo M.D. MCV 102.1 fL High 82.6-98.9 [facility] Comment on above: Performed By: #### C BCDIF, CMET, TSH ####Unless otherwise noted, all testing performed by [address] [phone]: [id number] Director: Yo Araujo M.D. Monocytes 0.6 K/mcL Normal 0.1-0.6 [facility] Comment on above: Performed By: #### C BCDIF, CMET, TSH ####Unless otherwise noted, all testing performed by [address] [phone]: [id number] Director: Yo Araujo M.D. Monocytes/100 leukocytes 13.1 % Normal [facility] Comment on above: Performed By: #### C BCDIF, CMET, TSH ####Unless otherwise noted, all testing performed by [address] [phone]: [id number] Director: Yo Van, M.D. Neutrophils 3.1 K/mcL Normal 1.2-6.9 [facility] Comment on above: Performed By: #### C BCDIF, CMET, TSH ####Unless otherwise noted, all testing performed by [address] [phone]: [id number] Director: Yo Araujo M.D. Platelet mean volume (PMV) 7.4 fL Normal 7.0-10.6 [facility] Comment on above: Performed By: #### C BCDIF, CMET, TSH ####Unless otherwise noted, all testing performed by [address] [phone]: [id number] Director: Yo Araujo M.D. Platelets 229 K/mcL Normal 162-402 [facility] Comment on above: Performed By: #### C BCDIF, CMET, TSH ####Unless otherwise noted, all testing performed by [address] [phone]: [id number] Director: Yo Araujo M.D. Segmented Neut % 66.4 % Normal [facility] Comment on above: Performed By: #### C BCDIF, CMET, TSH ####Unless otherwise noted, all testing performed by [address] [phone]: [id number] Director: Yo Araujo M.D. WBC (Leukocytes) 4.6 K/mcL Normal 3.4-10.6 [facility] Comment on above: Performed By: #### C BCDIF, CMET, TSH ####Unless otherwise noted, all testing performed by [address] [phone]: [id number] Director: Yo Araujo M.D. [facility] 07-23-2017 Alanine aminotransferase (ALT) 27 U/L Normal 14-65 [facility] Comment on above: Result Comment: This test result might be falsely depressed or falsely elevated onsamples drawn from patients taking Sulfasalazine and Sulfapyridine.Venipuncture should occur prior to taking either of these drugs. Performed By: #### C BCDIF, CMET, TSH ####Unless otherwise noted, all testing performed by [address] [phone]: [id number] Director: Yo Araujo M.D. Albumin 2.8 g/dL Low 3.2-5.2 [facility] Comment on above: Performed By: #### C BCDIF, CMET, TSH ####Unless otherwise noted, all testing performed by [address] [phone]: [id number] Director: Yo Araujo M.D. Alkaline phosphatase (ALP) 53 U/L Normal 40-150 [facility] Comment on above: Performed By: #### C BCDIF, CMET, TSH ####Unless otherwise noted, all testing performed by [address] [phone]: [id number] Director: Yo Araujo M.D. Aspartate aminotransferase (AST) 32 U/L Normal 0-45 [facility] Comment on above: Result Comment: This test result might be falsely depressed or falsely elevated onsamples drawn from patients taking Sulfasalazine and Sulfapyridine.Venipuncture should occur prior to taking either of these drugs. Performed By: #### C BCDIF, CMET, TSH ####Unless otherwise noted, all testing performed by [address] [phone]: [id number] Director: Yo Araujo M.D. Bilirubin (total) 0.9 mg/dL Normal 0.3-1.2 [facility] Comment on above: Performed By: #### C BCDIF, CMET, TSH ####Unless otherwise noted, all testing performed by [place] [phone]: [id number] Director: Yo Araujo M.D. Calcium 8.7 mg/dL Normal 8.4-10.2 [facility] Comment on above: Performed By: #### C BCDIF, CMET, TSH ####Unless otherwise noted, all testing performed by [place] [phone]: [id number] Director: Yo Araujo M.D. Chloride 108 mmol/L Normal 98-108 [facility] Comment on above: Performed By: #### C BCDIF, CMET, TSH ####Unless otherwise noted, all testing performed by [place] [phone]: [id number] Director: Yo Araujo M.D. CO2 26 mmol/L Normal 21-32 [facility] Comment on above: Performed By: #### C BCDIF, CMET, TSH ####Unless otherwise noted, all testing performed by [place] [phone]: [id number] Director: Yo Araujo M.D. Creatinine 0.57 mg/dL Low 0.60-1.20 [facility] Comment on above: Performed By: #### C BCDIF, CMET, TSH ####Unless otherwise noted, all testing performed by [address], [place] [phone]: [id number] Director: oY Araujo M.D. eGFR (black) mL/min/{1.73_m2} Normal [facility] Comment on above: Result Comment: Afri can Somali GFR Calc Performed By: #### C BCDIF, CMET, TSH ####Unless otherwise noted, all testing performed by [address] [phone]: [id number] Director: Yo Araujo M.D. eGFR (non-black) mL/min/{1.73_m2} Normal [facility] Comment on above: Result Comment: Non- GFR CalceGFR is an estimated Glomerular Filtration Rate based on the valueof the patient's serum creatinine. In outpatients, eGFR should be usedas a helpful tool in screening for CKD. In inpatients or patients withacute renal failure, eGFR represents the GFR at the moment of the drawand should be used with caution. Performed By: #### C BCDIF, CMET, TSH ####Unless otherwise noted, all testing performed by [address], [place] [phone]: [id number] Director: Yo Araujo M.D. Glucose mass conc 86 mg/dL Normal 70-99 [facility] Comment on above: Result Comment: This test result might be falsely depressed or falsely elevated onsamples drawn from patients taking Sulfasalazine and Sulfapyridine.Venipuncture should occur prior to taking either of these drugs. Performed By: #### C BCDIF, CMET, TSH ####Unless otherwise noted, all testing performed by [address] [phone]: [id number] Director: Yo Araujo M.D. Potassium molar conc 3.7 mmol/L Normal 3.5-5.1 [facility] Comment on above: Performed By: #### C BCDIF, CMET, TSH ####Unless otherwise noted, all testing performed by [place] [phone]: [id number] Director: Yo Araujo M.D. Protein 6.1 g/dL Normal 6.0-8.0 [facility] Comment on above: Performed By: #### C BCDIF, CMET, TSH ####Unless otherwise noted, all testing performed by [place] [phone]: [id number] Director: Yo Araujo M.D. Sodium 141 mmol/L Normal 135-145 [facility] Comment on above: Performed By: #### C BCDIF, CMET, TSH ####Unless otherwise noted, all testing performed by [address] [phone]: [id number] Director: Yo Araujo M.D. Urea nitrogen 11 mg/dL Normal 8-25 [facility] Comment on above: Performed By: #### C BCDIF, CMET, TSH ####Unless otherwise noted, all testing performed by [place] [address] [address] [place], [place] [phone]: [id number] Director: Yo Araujo M.D. TSHon 07-23-2017 Thyroid stimulating hormone (TSH) 1.67 uIU/mL Normal 0.320-5.000 [facility] Comment on above: Performed By: #### C BCDIF, CMET, TSH ####Unless otherwise noted, all testing performed by [place] [address] [address] [place], [place] [phone]: [id number] Director: Yo Araujo M.D. [facility] SUMMon 07-21-2017 [facility] NOTES Normal [facility] NURSING NOTEon 07-21-2017 [facility] NOTES Normal [facility] NOT[facility] Normal [facility] NOT[facility] Normal [facility] NOT[facility] Normal [facility] NOT[facility] Normal [facility] NOT[facility] Normal [facility] PLAN OF [facility] 07[facility]21-2017 [facility] NOTES Normal [facility] NOT[facility] Normal [facility] NOTES Normal [facility] NOT[facility] Normal [facility] NOTES Normal [facility] NOT[facility] Normal [facility] PROGRESSon 07-21-2017 [facility] NOTES Normal [facility] NOT[facility] Normal [facility] NOT[facility] Normal [facility] NOT[facility] Normal [facility] NURSING NOTEon 07-20-2017 [facility] NOTES Normal [facility] NOT[facility] Normal [facility] NOT[facility] Normal [facility] NOT[facility] Normal [facility] Normal [facility] NOT[facility] Normal [facility] NOTES Normal [facility] NOT[facility] Normal [facility] PROGRESSon 07-20-2017 [facility] NOTES Normal [facility] NOT[facility] Normal [facility] NOT[facility] Normal [facility] NOT[facility] Normal [facility] NOT[facility] Normal [facility] NOT[facility] Normal [facility] NOT[facility] Normal [facility] Anes Post-opon 2017 [facility] CAC NOTES Normal [facility] CONSULTon 2017 [facility] NOTES Normal [facility] Certificatioon 2017 [facility] NOTES Normal [facility] NURSING NOTEon 2017 [facility] NOT[facility] Normal [facility] NOT[facility] Normal [facility] NOT[facility] Normal [facility] NOT[facility] Normal [facility] NOT[facility] Normal [facility] PLAN OF CAREon 2017 [facility] NOTES Normal [facility] NOT[facility] Normal [facility] NOT[facility] Normal [facility] NOT[facility] Normal [facility] PROGRESSon 2017 [facility] NOT[facility] Normal [facility] NOT[facility] Normal [facility] NOT[facility] Normal [facility] NOT[facility] Normal [facility] NOT[facility] Normal [facility] NOT[facility] Normal [facility] NOT[facility] Normal [facility] NOT[facility] Normal [facility] NOT[facility] Normal [facility] BRIEF OP NOTon 07-18-2017 [facility] NOTES Normal [facility] OP NOTEon 07-18-2017 [facility] NOTES Normal [facility] OR NURSINGon 07-18-2017 [facility] CAC NOTES Normal [facility] XR KNEE LEFT 2 VIEWSon 07-18 XR [...] changes as above in satisfactory alignment. Normal [facility] PROGRESSon 07-01-2017 [facility] NOTES Normal [facility] Vital Signs Date Time Vital Sign Value Performing Clinician Facility 11-03-2023 10:09-0500 Diastolic blood pressure 89 mm[Hg] [facility] 11-03-2023 10:09-0500 Systolic blood pressure 191 mm[Hg] [facility] 11-03-2023 09:53-0500 Body height 170.2 cm [facility] 11-03-2023 09:53-0500 Body mass index (BMI) [Ratio] 34.46 kg/m2 [facility] 11-03-2023 09:53-0500 Body weight 99.79 kg [facility] 11-03-2023 09:53-0500 Heart rate 67 /min [facility] Comment on above: regular 11-03-2023 09:53-0500 Respiratory rate 20 /min [facility] Comment on above: lungs cta 11-03-2023 09:53-0500 SaO2% (BldA) [Mass fraction] 96 % [facility] 09-01-2023 12:59-0400 Body height 170.2 cm New Mcclure MD Work Phone: [facility] 09-01-2023 12:59-0400 Body mass index (BMI) [Ratio] 35.4 kg/m2 New Mcclure MD Work Phone: [facility] 09-01-2023 12:59-0400 Body temperature 98.2 [degF] New Mcclure MD Work Phone: [facility] 09-01-2023 12:59-0400 Body weight 102.51 kg New Mcclure MD Work Phone: [facility] 05-19-2023 14:41-0400 Body height 172.7 cm Rajinder Green APRN-DIETETIC AIDE Work Phone: [employer] 05-19-2023 14:41-0400 Body mass index (BMI) [Ratio] 34.36 kg/m2 Rajinder Green APRN-DIETETIC AIDE Work Phone: [employer] 05-19-2023 14:41-0400 Body temperature 97.59 [degF] Rajinder Green APRN-DIETETIC AIDE Work Phone: [employer] 05-19-2023 14:41-0400 Body weight 102.51 kg Rajinder Green APRN-DIETETIC AIDE Work Phone: [employer] 08-31-2021 15:30-0400 Body height 173.99 cm Stephen Hodorian Other [employer] Other 08-31-2021 15:30-0400 Body mass index (BMI) [Ratio] 30.26 kg/m2 Stephen Deanne Other [employer] Other 08-31-2021 15:30-0400 Body weight 91.63 kg Stephen Elsdorian Other [employer] Other 08-31-2021 15:30-0400 Diastolic blood pressure 87 mm[Hg] Stephen Alicea Other [employer] Other 08-31-2021 15:30-0400 Systolic blood pressure 145 mm[Hg] Stephen Alicea Other [employer] Other 03-11-2021 13:50-0400 Body height 172.7 cm New Mcclure MD Work Phone: [facility] 03-11-2021 13:50-0400 Body mass index (BMI) [Ratio] 33.45 kg/m2 New Mcclure MD Work Phone: [facility] 03-11-2021 13:50-0400 Body temperature 97 [degF] New Mcclure MD Work Phone: [facility] 03-11-2021 13:50-0400 Body weight 99.79 kg New Mcclure MD Work Phone: [facility] 11-19-2020 14:21-0500 BMI (Body Mass Index) 34.1 kg/m2 [facility] 11-19-2020 14:21-0500 Body Temperature 97.11 [degF] [facility] 11-19-2020 14:21-0500 Body weight 100.25 kg [facility] 11-19-2020 14:21-0500 Height 171.5 cm [facility] 11-21-2019 13:29-0500 BMI (Body Mass Index) 33.42 kg/m2 [facility] 11-21-2019 13:29-0500 Body Temperature 97 [degF] [facility] 11-21-2019 13:29-0500 Body weight 99.7 kg [facility] 11-21-2019 13:29-0500 Height 172.7 cm [facility] 04-18-2019 16:28-0400 BMI (Body Mass Index) 31.02 kg/m2 [facility] 04-18-2019 16:28-0400 Body Temperature 97.59 [degF] [facility] 04-18-2019 16:28-0400 Height 172.7 cm [facility] 04-18-2019 16:28-0400 Weight 92.53 kg [facility] 03-01-2019 14:14-0400 BMI (Body Mass Index) 31.63 kg/m2 [facility] 03-01-2019 14:14-0400 Body Temperature 97.39 [degF] [facility] 03-01-2019 14:14-0400 Height 172.7 cm [facility] 03-01-2019 14:14-0400 Weight 94.35 kg [facility] 01-03-2019 15:24-0500 BMI (Body Mass Index) 31.63 kg/m2 [facility] 01-03-2019 15:24-0500 Body Temperature 97.3 [degF] [facility] 01-03-2019 15:24-0500 Body weight 94.35 kg [facility] 01-03-2019 15:24-0500 Height 172.7 cm [facility] 12-14-2018 14:44-0500 BMI (Body Mass Index) 30.87 kg/m2 [facility] Work Phone: 12-14-2018 14:44-0500 Body Temperature 97.9 [degF] [facility] Work Phone: 12-14-2018 14:44-0500 Height 172.7 cm [facility] Work Phone: 12-14-2018 14:44-0500 Weight 92.08 kg [facility] Work Phone: 11-24-2018 16:57-0500 Body Temperature 97 [degF] [facility] Work Phone: 11-24-2018 16:57-0500 BP Diastolic 77 mm[Hg] [facility] Work Phone: 11-24-2018 16:57-0500 BP Systolic 155 mm[Hg] [facility] Work Phone: 11-24-2018 16:57-0500 Pulse (Heart Rate) 79 /min [facility] Work Phone: 11-24-2018 16:57-0500 Pulse Oximetry 99 % [facility] Work Phone: 11-24-2018 16:57-0500 Respiratory Rate 18 /min [facility] Work Phone: 11-21-2018 09:00-0500 BMI (Body Mass Index) 32.19 kg/m2 [facility] Work Phone: 11-21-2018 09:00-0500 Height 172.7 cm [facility] Work Phone: 11-21-2018 09:00-0500 Weight 96.03 kg [facility] Work Phone: 10-23-2018 08:49-0500 BP Diastolic 75 mm[Hg] [facility]pe [facility] Work Phone: 10-23-2018 08:49-0500 BP Systolic 159 mm[Hg] [facility]pe [facility] [employer] [facility] Work Phone: 10-23-2018 08:49-0500 Pulse (Heart Rate) 100 /min Pepe [facility] [employer] [facility] Work Phone: 10-13-2018 09:01-0500 BMI (Body Mass Index) 31.93 kg/m2 [facility]pe [facility] [employer] [facility] Work Phone: 10-13-2018 09:01-0500 Body Temperature 97.81 [degF] [facility]pe [facility] [employer] [facility] Work Phone: 10-13-2018 09:01-0500 Height 172.7 cm Pepe [facility] [employer] [facility] Work Phone: 10-13-2018 09:01-0500 Pulse Oximetry 99 % Pepe [facility] [employer] [facility] Work Phone: 10-13-2018 09:01-0500 Respiratory Rate 16 /min Pepe [facility] [employer] [facility] Work Phone: 10-13-2018 09:01-0500 Weight 95.25 kg Pepe Chaka [employer] [facility] Work Phone: Encounters Encounter Date Encounter Type Care Provider Facility Start: 12-22-2023 ambulatory [facility] Start: 12-22-2023 End: 12-22-2023 Subsequent hospital visit by physician Rajinder SCHWARTZ Work Phone: [facility] Start: 11-29-2023 End: 12-02-2023 Evaluation and management of inpatient [facility] Start: 11-10-2023 End: 11-10-2023 ambulatory MARII HARPER Not Available Start: 11-03-2023 ambulatory [facility] Start: 11-03-2023 Encounter for other preprocedural examination [facility] Start: 11-03-2023 End: 11-03-2023 Admission to establishment New Mcclure MD Work Phone: [facility] Pre Admission Comment on above: Preop testing (Prima ry Dx); Abnormal finding of blood chemistry, unspecified; Abnormal coagulation profile Start: 11-03-2023 End: 11-03-2023 Patient encounter status New Mcclure MD Work Phone: [facility] Start: 09-01-2023 ambulatory [facility] Start: 09-01-2023 End: 09-01-2023 Office outpatient visit 40 minutes New Mcclure MD Work Phone: [facility] Comment on above: Hx of total knee art hroplasty, right (Primary Dx); Hx of total knee arthroplasty, left Start: 09-01-2023 End: 09-01-2023 Subsequent hospital visit by physician New Mcclure MD Work Phone: [facility] Start: 05-19-2023 ambulatory [facility] Start: 05-19-2023 End: 05-19-2023 Postop follow up visit related to original px Rajinder SCHWARTZ Work Phone: [facility] Comment on above: Hx of total knee art hroplasty, right (Primary Dx) Start: 05-19-2023 End: 05-19-2023 Subsequent hospital visit by physician Rajinder SCHWARTZ Work Phone: [facility] Start: 04-26-2023 End: 04-27-2023 ambulatory [facility] Start: 04-14-2023 ambulatory [facility] Start: 03-18-2023 ambulatory [facility] Start: 03-18-2023 End: 03-18-2023 Subsequent hospital visit by physician New Mcclure MD Work Phone: [facility] Start: 02-08-2023 End: 02-09-2023 ambulatory [...] Facility:[facility] Start: 04-20-2022 End: 04-21-[address] YUILSA BATRES . Facility:[facility] Start: 08-31-2021 End: 08-31-2021 ambulatory Stephen Alicea Other [facility] Other Start: 08-31-2021 Office outpatient ne w 30 minutes Stephen Alicea [facility] Start: 05-07-2021 End: 05-08-2021 ambulatory Mary Resendez Facility:[facility] Start: 03-11-2021 End: 03-11-2021 Office outpatient visit 15 minutes New Mcclure MD Work Phone: [facility] Comment on above: Left knee pain, unsp ecified chronicity (Primary Dx); Right knee pain, unspecified chronicity Start: 11-19-2020 End: 11-19-2020 [facility]: Hx of total knee art hroplasty, left (Primary Dx); Pain in prosthetic joint, initial encounter Start: 11-19-2020 End: 11-19-2020 Subsequent hospital visit by physician [employer] Phone: [facility] Start: 11-21-2019 End: 11-21-2019 Office outpatient visit 15 minutes Namely Phone: [facility] Comment on above: History of total kne e arthroplasty, left (Primary Dx); Arthritis of right knee Start: 11-21-2019 End: 11-21-2019 Subsequent hospital visit by physician [employer] [facility] Start: 04-18-2019 End: 04-18-2019 Office outpatient visit 15 minutes Namely Phone: [facility] Comment on above: Right hip pain (Prim ric Dx); Left knee pain, unspecified chronicity; Right knee pain, unspecified chronicity Start: 04-18-2019 End: 04-18-2019 Patient encounter procedure Namely Phone: [facility] Start: 03-01-2019 End: 03-01-2019 Subsequent hospital visit by physician [employer] [facility] Start: 03-01-2019 End: 03-01-2019 Letter encounter Provider Aurelio [facility] Start: 03-01-2019 End: 03-01-2019 Office outpatient visit 15 minutes Namely Phone: [facility] Comment on above: History of total kne e arthroplasty, left (Primary Dx); Right hip pain Start: 03-01-2019 End: 03-01-2019 Patient encounter procedure Namely [facility] Start: 02-23-2019 End: 02-23-2019 Patient encounter procedure Other Other [facility] Start: 02-09-2019 End: 02-09-2019 Telephone encounter Marcie Grzegorz [facility] Comment on above: Leg Swelling Start: 01-05-2019 End: 01-05-2019 Patient encounter procedure Other Other [facility] Start: 01-03-2019 End: 01-03-2019 Office outpatient visit 15 minutes New Mcclure Work Phone: [facility] Comment on above: History of total kne e arthroplasty, left (Primary Dx) Start: 12-14-2018 End: 12-14-2018 Patient encounter procedure Rajinder Green Work Phone: [facility] Start: 12-14-2018 End: 12-14-2018 Postop follow up visit related to original px Rajinder Green Work Phone: [facility] Comment on above: Hx of total knee art hroplasty, left (Primary Dx) Start: 12-06-2018 End: 12-06-2018 Telephone encounter Marcie Lantigua [facility] Comment on above: Skin Problem Start: 11-30-2018 End: 11-30-2018 Patient encounter procedure Other Other NOTES/RESULTS Start: 11-21-2018 End: 11-24-2018 Evaluation and management of inpatient New Mcclure Work Phone: [facility] Med Surg Comment on above: Pain in left knee Start: 10-23-2018 End: 10-23-2018 Patient encounter procedure New Mcclure Work Phone: [facility] Pre Admission Comment on above: Pre-op exam (Primary Dx) Start: 09-15-2018 End: 09-15-2018 Patient encounter procedure Richard Macdonald [facility] Start: 08-18-2017 Ambulatory Star Rashmi Gar[facility]: [facility] Start: 07-24-2017 Ambulatory Star Caraballo Garfield Facility:[facility] Start: 07-18-2017 End: 07-21-2017 Evaluation and management of inpatient [facility] Start: 07-01-2017 Ambulatory [facility] on Hospital Procedures Date Procedure Procedure Detail Performing [...] MD Work Phone: Start: 11-19-2020 Intra-articular injection New Mcclure Work Phone: Start: 11-21-2019 Intra-articular injection New Mcclure Work Phone: Start: 04-18-2019 Intra-articular injection New [facility] Work Phone: Start: 11-24-2018 End: 11-24-2018 CBC, EDIF, PLATELET Rajinder Green Work Phone: Start: 11-23-2018 End: 11-23-2018 Blood count complete auto&auto difrntl wbc Rajinder Green Work Phone: Start: 11-22-2018 End: 11-22-2018 Blood count complete auto&auto difrntl wbc Rajinder Green Work Phone: Start: 11-21-2018 End: 11-21-2018 X-ray of left knee Rajinder Green Work Phone: Start: 11-21-2018 End: 11-21-2018 Cell count misc body fluids w/differential count [facility] Work Phone: Start: 11-21-2018 End: 11-21-2018 Cul bact melissa aerobic isol xcpt ur blood/stool [employer] Phone: Start: 11-21-2018 End: 11-21-2018 Culture bacterial any source anaerobic iso&id [employer] Phone: Start: 11-21-2018 End: 11-21-2018 Culture fngi mold/yeast prsmptv oth xcpt blood New Mcclure [facility] Phone: Start: 11-21-2018 End: 11-21-2018 Culture tubercle/oth acid-fast bacilli any isol [employer] Work Phone: Start: 11-21-2018 End: 11-21-2018 REPEAT ABO/RH (D) TYPING [employer] Phone: Start: 11-21-2018 End: 11-21-2018 Cultyp nuc acid amp prb cult/isolate ea orgnism Rajinder Abby Work Phone: Start: 10-23-2018 End: 10-23-2018 Standard ECG [employer] Work Phone: Plan of Treatment Date Care Activity Detail Author Start: 12-01-2024 Potassium [Moles/vol ume] in Serum or Plasma POTASSIUM [facility] Start: 11-03-2024 Potassium [Moles/vol ume] in Serum or Plasma POTASSIUM [facility] Start: 04-27-2024 Potassium [Moles/vol ume] in Serum or Plasma POTASSIUM [facility] Start: 04-25-2024 End: 04-25-2024 Patient encounter procedure 04/25/2024 11:40 AM EDT Office Visit [facility] [address] [place] [id number] Rajinder Green, CAKE FROSTER-DIETETIC AIDE [address] [place] [id number] [facility] Start: 02-23-2024 End: 02-23-2024 Patient encounter procedure 02/23/2024 11:00 AM EDT Office Visit [facility] [address] [place] [id number] Rajinder Green, CAKE FROSTER-DIETETIC AIDE [address] [place] [address] [facility] Start: 11-29-2023 End: 11-29-2023 Evaluation and management of inpatient [facility] Periop Comment on above: Failed total left kn ee replacement, initial encounter REVISION ARTHROPLAST Y KNEE Start: 11-29-2023 End: 11-29-2023 Revj tot knee arthrp fem&entire tibial compone REVISION ARTHROPLASTY KNEE Failed total left knee replacement, initial encounter 11/29/2023 10:00 AM EST [facility] Start: 11-03-2023 End: 12-05-2023 PREPARE TO TRANSFUSE RED BLOOD CELLS PREPARE TO TRANSFUSE RED BLOOD CELLS Blood Bank Routine Preop testing Expected: 11/03/2023, Expires: 12/05/2023 [facility] Work Phone: Comment on above: Expected: 11/03/2023 , Expires: 12/05/2023 Start: 09-01-2023 End: 09-01-2023 Patient encounter procedure 09/01/2023 1:00 PM EDT Office Visit [facility] [address] [place] [address] New Mcclure MD [address] [place] [address] [facility] Start: 07-08-2023 COVID-19 VACCINE ( season) COVID-19 VACCINE ( season) [facility] Start: 07-08-2023 Influenza vaccination INFLUENZA VACC INE (#1) [facility] Start: 04-14-2023 End: 04-14-2023 ambulatory 04/14/2023 Pre-Operative Nurse Assessment Internal Medicine [facility] Pre Admission Start: 12-24-2022 COVID-19 VACCINE (5 - Pfizer series) COVID-19 VACCINE (5 - Pfizer series) [facility] Start: 07-08-2021 Influenza vaccination INFLUENZ A VACCINE (Season Ended) [facility] Start: 11-19-2020 End: 11-19-2020 Office Visit 11/19/2020 Office Visit Orthopaedics Michi, New, MD [address] [place] [id number] [facility] Start: 11-24-2019 Potassium molar conc POTASSIUM [place] Work Phone: Start: 11-23-2019 Potassium molar conc [facility]UM [place] Work Phone: Start: 11-22-2019 End: 11-22-2019 Office Visit 11/22/2019 Office Visit New Lucas MD [address] [place] [id number] [facility] Start: 10-23-2019 Potassium molar conc POTASSIUM [facility] Start: 07-08-2019 Influenza vaccination A ORLIN [employer] Start: 04-18-2019 End: 04-18-2019 Office Visit 04/18/2019 Office Visit New Lucas MD [address] [place] [phone] [facility] Start: 03-01-2019 End: 03-01-2019 Office Visit [facility] Comment on above: Arrived History of total kne e arthroplasty, left (Primary Dx) Start: 02-23-2019 End: 03-23-2019 X-ray of left knee XR KNEE LEFT 2 VIEWS Imaging Routine History of total knee arthroplasty, left Expected: 02/23/2019, Expires: 03/23/2019 [facility] Comment on above: Expected: 02/23/2019 , Expires: 03/23/2019 Start: 01-03-2019 End: 01-03-2019 Ambulatory 01/03/2019 Office Visit New Lucas MD [address] [place] [id number] [facility] Start: 12-28-2018 End: 01-25-2019 X-ray of left knee XR KNEE LEFT 2 VIEWS Imaging Routine History of total knee arthroplasty, left Expected: 12/28/2018, Expires: 01/25/2019 [facility] Comment on above: Expected: 12/28/2018 , Expires: 01/25/2019 Start: 12-14-2018 End: 12-14-2018 Ambulatory [facility] Start: 11-21-2018 Ambulatory 11/21/2018 Pro ced[facility] Start: 11-21-2018 Inpatient Encounter [facility] Comment on above: REVISION ARTHROPLAST Y KNEE - extensor mech reconstruction - left Extensor mechanism m alalignment Start: 10-23-2018 End: 10-23-2018 Ambulatory 10/23/2018 Pre-Operative Nurse Assessment Internal Medicine [facility] Pre Admission Start: 07-21-2018 Finding of potassium level (finding) POTASSIUM [facility] Work Phone: Start: 2018 Pneumococcal vaccination [facility] Start: 07-08-2018 Influenza vaccination INFLUENZA VACC INE (#1) [facility] Work Phone: Start: 2003 Colonoscopy [facility] Work Phone: Start: 2003 Protein mass conc COLON CANCER SCREENING DISCUSSION [facility] Work Phone: Start: 2003 Zoster vaccine hzv l damian for subcutaneous use ZOSTER (SHINGLES) VACCINE (1 of 2) [facility] Start: 1998 Screening for malign ant neoplasm of colon COLORECTAL CANCER SCREENING DISCUSSION [facility] Start: 1993 Fasting lipid profile LIPID SCREENIN G [facility] Work Phone: Start: 1993 Lipid panel LIPID SCREENING [facility] Start: 1993 Protein mass conc MAMMOGRAM SC REENING DISCUSSION [facility] Work Phone: Start: 1993 Screening for malign ant neoplasm of breast MAMMOGRAM SCREENING DISCUSSION [facility] Start: 1993 Screening mammography MAMMOGRA M SCREENING DISCUSSION [facility] Work Phone: Start: 1974 Screening for malign ant neoplasm of cervix [facility] Start: 1972 Third diphtheria, tetanus and acellular pertussis (DTaP) vaccination TDAP (ADULT) [facility] Start: 1971 Tetanus vaccination TETANUS [facility] Work Phone: Start: 1969 COVID-19 VACCINE (1) COVID-19 VACCIN E (1) [facility] Start: 1953 Hepatitis C screening HEPATITI S C VIRUS SCREENING [facility] Start: [address] [facility] Start: 1953 End: 1953 Hepatitis C antibody, confirmatory test HEPATITIS C VIRUS SCREENING [facility] Work Phone: Start: 1953 End: 1953 Screening for osteoporosis DEXA SCAN DISCUSSION [facility] ACID FAST CULTURE [facility] Work Phone: Comment on above: ONE TIME for 1 Occur rences starting 11/21/2018 ANAEROBE CULTURE [facility] Work Phone: Comment on above: ONE TIME for 1 Occur rences starting 11/21/2018 BACTERIAL CULTURE AN D DIRECT SMEAR, LESION, TISSUE, DEVICE BACTERIAL CULTURE AND DIRECT SMEAR, LESION, TISSUE, DEVICE Routine Extensor mechanism malalignment ONE TIME for 1 Occurrences starting 11/21/2018 [facility] Work Phone: Comment on above: ONE TIME for 1 Occur rences starting 11/21/2018 Basic metabolic 2000 panel - Serum or Plasma BASIC METABOLIC PANEL Routine Pre-op exam Ordered: 10/23/2018 [facility] Work Phone: Comment on above: Ordered: 10/23/2018 BODY FLUID CULTURE A ND DIRECT SMEAR BODY FLUID CULTURE AND DIRECT SMEAR Routine 11/21/2018 11:00 AM EST [facility] Work Phone: CBC, EDIF, PLATELET CBC, EDIF, P LATELET Routine Pre-op exam Ordered: 10/23/2018 [facility] Work Phone: Comment on above: Ordered: 10/23/2018 FUNGUS CULTURE [facility] Work Phone: Comment on above: ONE TIME for 1 Occur rences starting 11/21/2018 Hemoglobin A1c/Hemoglobin.total mass fraction (Bld) HEMOGLOBIN A1C Routine Pre-op exam Ordered: 10/23/2018 [facility] Work Phone: Comment on above: Ordered: 10/23/2018 LARGE JOINT INJECTIO N: R knee LARGE JOINT INJECTION: R knee Procedures Routine Right knee pain, unspecified chronicity 04/18/2019 4:00 PM EDT [email or web address] PROTIME-INR PROTIME-INR STAT Pre-op exam Ordered: 10/23/2018 [facility] Work Phone: Comment on above: Ordered: 10/23/2018 Radiography for bone length studies XR BONE LENGTH STUDY Imaging Routine Hx of total knee arthroplasty, right 09/01/2023 12:48 PM EDT [employer] Radiography of hip XR HIP WITH P NICOLAS RIGHT Imaging Routine Right hip pain 03/01/2019 2:59 PM EDT [email or web address] SCREEN: MRSA ONLY, N VIVI (ISOLATION SCREEN) SCREEN: MRSA ONLY, NARES (ISOLATION SCREEN) Routine Pre-op exam Ordered: 10/23/2018 [facility] Work Phone: Comment on above: Ordered: 10/23/2018 Standard ECG ECG Routine Pre- op exam 10/23/2018 8:53 AM EST [facility] Work Phone: TISSUE CULTURE TISSUE CULTURE R outine 11/21/2018 11:00 AM EST [facility] Work Phone: TYPE AND SCREEN - POSSIBLE TRANSFUSION TYPE AND SCREEN - POSSIBLE TRANSFUSION Routine Pre-op exam Ordered: 10/23/2018 [facility] Work Phone: Comment on above: Ordered: 10/23/2018 TYPE AND SCREEN - POSSIBLE TRANSFUSION TYPE AND SCREEN - POSSIBLE TRANSFUSION Blood Bank Today Preop testing 11/03/2023 9:50 AM [employer] [facility] URINALYSIS, MACRO URINALYSIS, MA LABORER CHEMICAL PROCESSING Routine Pre-op exam Ordered: 10/23/2018 [facility] Work Phone: Comment on above: Ordered: 10/23/2018 X-ray of left knee [facility] Work Phone: End: 03-01-2019 X-ray of left knee XR KNEE LEFT 2 VIEWS Imaging Routine History of total knee arthroplasty, left 1 Occurrences starting 03/01/2019 until 03/01/2019 [email or web address] Comment on above: 1 Occurrences starti ng 03/01/2019 until 03/01/2019 XR Knee - left 2 Views XR KNEE L EFT 2 VIEWS Imaging Routine Left knee pain, unspecified chronicity 03/18/2023 11:12 AM EDT [employer] XR Knee - left 2 Views XR KNEE L EFT 1-2 VIEWS Imaging Routine Hx of total knee arthroplasty, left 12/22/2023 1:17 PM [employer] XR Knee - left 3 Views XR KNEE L EFT 3 VIEWS Imaging Routine Hx of total knee arthroplasty, left 09/01/2023 12:48 PM [employer] Work Phone: XR Knee - right 2 Views XR KNEE RIGHT 2 VIEWS Imaging Routine Right knee pain, unspecified chronicity 03/18/2023 11:12 AM [employer] XR Knee - right 3 Views XR KNEE RIGHT 3 VIEWS Imaging Routine Hx of total knee arthroplasty, right 05/19/2023 2:33 PM [employer] Work Phone: XR Knee - right 3 Views XR KNEE RIGHT 3 VIEWS Imaging Routine Hx of total knee arthroplasty, right 09/01/2023 12:48 PM [employer] Immunizations Immunization Date Immunization Notes Care Provider Dio patel 08-23-2022 influenza virus vaccine, unspecified formulation Rajinder Green APRN-DIETETIC AIDE Work Phone: [employer] 08-18-2015 influenza virus vaccine, unspecified formulation Richard Macdonald [facility] Work Phone: Payers Date Payer Category Payer Unknown GENERIC PAYOR [place] [employer] SUPPLEMENT [id number] 2022-Present [phone] [address] [place] [address] [id number] .[id number] 2020 Self-pay [id number] 2017 Medicare MEDICARE MEDICAR E A AND B xxxxxxxxxxx 2017-Present [place], [place] xxxxxxxxxxx [id number] .[id number] 2017 Medicare MEDICARE MEDICAR E A AND B [id number] 2017-Present [place] [id number] [id number] .7.3.516117.315 2017 Medicare [id number] 2.16.840.1.021423.19 2017 Medicare MEDICARE MEDICAR E A AND B [id number] 2017-Present [address] [place] [address] 1.2.840.606042.1.13.172.2 .7.3.967173.315 2017 Unknown ANTHEM ANTHEM TR ADITIONAL xxxxxxxxxxxx 2017-Present [id number] 1.2.840.732164.1.13.172.2 .7.3.273788.315 2017 Unknown ANTHEM ANTHEM TR ADITIONAL [id number] 2017-Present [id number] 1.2.840.153376.1.13.172.2 .7.3.116676.315 1959 Blue Cross Blue Shield [id number] 2.16.840.1.081555.19 1953 Unknown [id number] 2.16.840.1.833209.3.579.2 .593 1953 Unknown [id number] 2.16.840.1.135068.3.579.2 .593 1953 Unknown [id number] 2.16.840.1.545455.3.579.2 .593 1953 Unknown [id number] 2.16.840.1.388877.3.579.2 .593 1953 Unknown [id number] 2.16.840.1.037001.3.579.2 .593 1953 Unknown [id number] 2.16.840.1.827503.3.579.2 .593 1953 Unknown [id number] 2.16.840.1.754582.3.579.2 .593 1953 Unknown [id number] 2.16.840.1.116625.3.579.2 .593 1953 Unknown [id number] 2.16.840.1.958026.3.579.2 .1259 1953 Unknown [id number] 2.16.840.1.280668.3.579.2 .983 1953 Unknown [id number] 2.16.840.1.532226.3.579.2 .983 1953 Unknown [id number] 2.16.840.1.165830.3.579.2 .983 1953 Unknown [id number] 2.16.840.1.271032.3.579.2 .983 1953 Unknown [id number] 2.16.840.1.921202.3.579.2 .983 1953 Unknown [id number] 2.16.840.1.613311.3.579.2 .983 1953 Unknown [id number] 2.16.840.1.922064.3.579.2 .983 1953 Unknown [id number] 2.16.840.1.397272.3.579.2 .983 1953 Unknown [id number] 2.16.840.1.291106.3.579.2 .983 1953 Unknown [id number] 2.16.840.1.246507.3.579.2 .983 1953 Unknown [id number] 2.16.840.1.615293.3.579.2 .983 1953 Unknown [id number] 2.16.840.1.380292.3.579.2 .983 Private Health Insurance [id number] Unknown O [id number] Unknown [id number] 2.16.840.1.496964.3.579.2 .531 Social History Date Type Detail Facility Start: 10-23-2018 End: 03-18-2023 Tobacco smoking status ORIS Never smoker [facility] Start: 1955 Sex Assigned At Not on file [facility] Work Phone: Start: 11-21-2019 End: 12-22-2023 Alcohol intake Current non-drinker of alcohol (finding) [email or web address] Start: 11-19-2020 End: 03-18-2023 Tobacco use and exposure Never used [facility] Start: 05-19-2023 End: 11-29-2023 Sex Assigned At [facility] Start: 05-19-2023 End: 11-29-2023 History of Social function [facility] Gender identity Identifies as fe [facility]finding[facility] Start: 04-16-2023 End: 04-26-2023 Exposure to SARS-CoV-2 (event) Not sure [facility] Start: 1955 Sex Assigned At Female [facility] Has the [employer], [employer], or water company threatened to shut off services in your home in past 12Mo No [facility] (I/We) worried wheth er (my/our) food would run out before (I/we) got money to buy more. Never true [facility] In the past 12 month s, has lack of transportation kept you from medical appointments or from getting medications? No [facility] Medical Equipment Procedure Code Equipment Code Equipment Origin al Text Equipment Identifier Dates Prolite Mesh 25. 4 Cm X 35.5cm Start: 11-21-2018 Palacos R 1x40 S nacho - [id number] Start: 11-21-2018 Prolite Mesh 25. 4 Cm X 35.5cm Start: 11-21-2018 Palacos R 1x40 S nacho - [id number] Start: 11-21-2018 Prolite Mesh 25. 4 Cm X 35.5cm Start: 11-21-2018 Palacos R 1x40 S nacho - [id number] Start: 11-21-2018 Prolite Mesh 25. 4 Cm X 35.5cm Start: 11-21-2018 Palacos R 1x40 S nacho - [id number] Start: 11-21-2018 Prolite Mesh 25. 4 Cm X 35.5cm Start: 11-21-2018 Prolite Mesh 25. 4 Cm X 35.5cm Start: 11-21-2018 Palacos R 1x40 S nacho - [id number] Start: 11-21-2018 Palacos R 1x40 S nacho - [id number] Start: 11-21-2018 Prolite Mesh 25. 4 Cm X 35.5cm Start: 11-21-2018 Prolite Mesh 25. 4 Cm X 35.5cm Start: 11-21-2018 Palacos R 1x40 S nacho - [id number] Start: 11-21-2018 Palacos R 1x40 S nacho - [id number] Start: 11-21-2018 Prolite Mesh 25. 4 Cm X 35.5cm Start: 11-21-2018 Prolite Mesh 25. 4 Cm X 35.5cm Start: 11-21-2018 Palacos R 1x40 S nacho - [id number] Start: 11-21-2018 Palacos R 1x40 S nacho - [id number] Start: 11-21-2018 Prolite Mesh 25. 4 Cm X 35.5cm Start: 11-21-2018 Prolite Mesh 25. 4 Cm X 35.5cm Start: 11-21-2018 Palacos R 1x40 S nacho - [id number] Start: 11-21-2018 Palacos R 1x40 S nacho - [id number] Start: 11-21-2018 Prolite Mesh 25. 4 Cm X 35.5cm Start: 11-21-2018 Prolite Mesh 25. 4 Cm X 35.5cm Start: 11-21-2018 Palacos R 1x40 S nacho - [id number] Start: 11-21-2018 Palacos R 1x40 S nacho - [id number] Start: 11-21-2018 Prolite Mesh 25. 4 Cm X 35.5cm Start: 11-21-2018 Prolite Mesh 25. 4 Cm X 35.5cm Start: 11-21-2018 Palacos R 1x40 S nacho - [id number] Start: 11-21-2018 Palacos R 1x40 S nacho - [id number] Start: 11-21-2018 Prolite Mesh 25. 4 Cm X 35.5cm Start: 11-21-2018 Prolite Mesh 25. 4 Cm X 35.5cm Start: 11-21-2018 Palacos R 1x40 S nacho - [id number] Start: 11-21-2018 Palacos R 1x40 S nacho - [id number] Start: 11-21-2018 Prolite Mesh 25. 4 Cm X 35.5cm [id number] Start: 11-21-2018 Palacos R 1x40 S nacho - [id number] Start: 11-21-2018 Prolite Mesh 25. 4 Cm X 35.5cm Start: 11-21-2018 Prolite Mesh 25. 4 Cm X 35.5cm Start: 11-21-2018 Palacos R 1x40 S nacho - [id number] Start: 11-21-2018 Palacos R 1x40 S nacho - [id number] Start: 11-21-2018 Prolite Mesh 25. 4 Cm X 35.5cm Start: 11-21-2018 Palacos R 1x40 S nacho - [id number] Start: 11-21-2018 Prolite Mesh 25. 4 Cm X 35.5cm Start: 11-21-2018 Prolite Mesh 25. 4 Cm X 35.5cm Start: 11-21-2018 Palacos R 1x40 S nacho - [id number] Start: 11-21-2018 Palacos R 1x40 S nacho - [id number] Start: 11-21-2018 Attune Tibial In sert Fixed Bearing Posterior Stabilized [id number] Start: 04-26-2023 Attune Knee Syst em Revision Distal Femoral Augment Size 7 12mm Cemented [id number] Start: 11-29-2023 Prolene Mesh Polypropylene Nonabsorbable Synthetic Surgical Mesh 12 X 12 [id number] Start: 11-29-2023 Attune Knee Syst em Revision Pressfit Stem 12mm X 60mm [id number] Start: 11-29-2023 Attune Knee Syst em Revision Distal Femoral Augment Size 7 12mm Cemented [id number] Start: 11-29-2023 Attune Knee Syst em Revision Tibial Base Rotating Platform Size 5 Cemented [id number] Start: 11-29-2023 Attune Knee Syst em Revision Tibial Sleeve Poracoat Partially Coated 37mm [id number] Start: 11-29-2023 Attune Knee Syst em Revision Femoral Sleeve Porocoat Partially Coated 40mm [id number] Start: 11-29-2023 Attune Knee Syst em Revision Posterior Femoral Augment Size 7 4mm Cemented [id number] Start: 11-29-2023 Attune Knee Syst em Revision Crs Femoral Size 7 Left Cemented [id number] Start: 11-29-2023 Palacos R+G 1x40 Single With Gentamicin - [id number] Start: 11-29-2023 Palacos R 1 X 40 - [id number] Start: 04-26-2023 Attune Knee Syst em Revision Tibial Base Fixed Bearing [id number] Start: 04-26-2023 Attune Femoral Posterior Stabilized [id number] Start: 04-26-2023 Attune Patella Medialized Dome [id number] Start: 04-26-2023 [place] Cancell ous Bone Screw [id number] Start: 04-26-2023 Attune Knee Syst em Revision Pressfit Stem [id number] Start: 11-29-2023 Palacos R & G Scott ne Cement High-Viscosity With Gentamicin - [id number] Start: 11-29-2023 Attune Knee Syst em Revision Crs Rotating Platform Insert [id number]_[facility] Start: 11-29-2023 Clinical Notes 03-11-2021 to 11-03-2023 Shayla Garza RN - 11/03/2023 10:00 AM EDMUNDChadi Almaguer RN - 11/03/2023 10:00 AM ESTPatient [...] no MEDICAL CLEARANCE, CARDIOLOGY CLEARANCE [place] 11/11 7330 DIFFICULT IV PLACEMENT Butterfly use in the [...] TRANSFUSION/REACTION Yes, no adverse reaction. CULTURAL OR RELIGION BELIEFS THAT WILL AFFECT CARE no DIETARY RESTRICTIONS no CONCERNS FOR PERSONAL SAFETY no Have you been diagnosed with a concussion in the past 6 months? no Have you tested positive for COVID 19? (if pt does breathing is not back to baseline please order CXR) No Have you had your COVID vaccination? no ADVANCE DIRECTIVES Yes, on file with [facility] IF PATIENT HAS NOT BEEN DIAGNOSED WITH [...] 11/03/2023 1010 blood pressure elevated today at [facility]. Reports have white coat syndrome. It's never high like that when I check it at home. Denies headache or complaints. Reports that she will check the BP on arrival home. Encouraged to discuss with pcp if remains elevated, voiced understanding. Discharged ambulatory, gait steady with walker. documented in this encounter [facility] 11-03-2023 Instructions Everton Ball RN - 11/03/2023 10:[address] Mcclure's office will call you for your arrival time, 1-2 business days before your scheduled surgery. Please review your surgery checklist and bring your guide or booklet the day of surgery. Pre-Admission Testing Dept. [phone] Call if you have any changes in [...] for the hospital. DIRECTIONS: Park in the [facility] facing [address]. Enter through the front entrance and sign in at the Registration Desk at the [facility]. Thank you for allowing us the privilege [...] Yellow - take the day of surgery Ben Bolt - hold according to the doctor's instructions [...] 01, 2020 10:38am 10-01-[address] [facility] ([id number]) STOP 7 DAYS BEFORE YOUR SURGERY LAST DOSE: DATE TIME ___ Doxazosin 4 MG tablet 4 mg, Oral, DAILY STOP TAKING 24 hours BEFORE YOUR SURGERY Last Dose: Date Time Folic acid 1 MG tablet 1,000 mcg, Oral, DAILY CONTINUE, but DO NOT take the morning of surgery. Last Dose: Date Time Btciksbyxnf-Npivraobd-Umv C-Mn (Glucosamine 1500 Complex) capsule Oral, DAILY [...] Dose: Date Time documented in this encounter [facility] 11-03-2023 Miscellaneous Notes Addended by: EVERTON BALL on: 10/27/2023 10:19 AM Modules accepted: Orders Addended by: EVERTON BALL on: 11/01/2023 01:36 PM Modules accepted: Orders documented in this encounter [facility] 11-03-2023 Note Addended by: EVERTON QUIROGA on: 10/27/2023 10:19 AM Modules accepted: Orders [facility] 11-03-2023 Note Addended by: EVERTON QUIROGA on: 11/01/2023 01:36 PM Modules accepted: Orders [facility] 09-01-2023 History of Presen t illness Narrative Ortho Nurse - Established Patient Intake Room#: 1 ----- 4 month f\u R TKR and is doing great. Also concerned about left knee and that it keeps slipping out of place. No pain with the knee just instability and would like it looked at again. Date: 09/01/2023 1:06 PM Patient: Danyelle Haskins MR#: [id number] : 1955 Age: 68 y.o. Referring Physician: [...] Laterality: Right; Surgeon: New Mcclure MD; Location: [facility] REVISION ARTHROPLASTY KNEE Left 11/21/2018 Laterality: Left; Surgeon: New Mcclure MD; Location: [facility] EXTRACTION EXTRACAPSULAR CATARACT W/ IMPLANT (ECCE IOL) Bilateral 2018 [facility] TREATMENT OPEN PATELLAR FX W/ INTERNAL [...] 01, 2020 10:38am 10-01-[address] 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 Patient is also here today for [...] a left total knee revision for optimal [facility] management. We have discussed in great detail [...] nasal MRSA screening, scheduling an appointment for [facility] [place] and the potential surgical date, and reviewing and signing the consent forms. I have reviewed the findings of the clinical network desktop support specialist and agree with their assessment. Ortho Nurse - Established Patient Intake Room#: 1 ----- 4 month f\u R TKR and is doing great. Also concerned about left knee and that it keeps slipping out of place. No pain with the knee just instability and would like it looked at again. Date: 09/01/2023 1:06 PM Patient: Danyelle Haskins MR#: [id number] : 1955 Age: 68 y.o. Referring Physician: [...] CATARACT W/ IMPLANT (ECCE IOL) Bilateral 2018 [facility] TREATMENT OPEN PATELLAR FX W/ INTERNAL [...] 01, 2020 10:38am 10-01-[address] [facility] ([id number]) Doxazosin 4 MG tablet Take 1 tablet [...] [sulfamethoxazole-trimethoprim], and levofloxacin. documented in this encounter [facility] 05-19-2023 History of Presen t illness Narrative Ortho Nurse - Established Patient Intake Room#: 5 Date: 05/19/2023 2:43 PM Patient: Danyelle Haskins MR#: [id number] : 1955 Age: 67 y.o. 3 wks [...] Laterality: Right; Surgeon: New Mcclure MD; Location: [facility] REVISION ARTHROPLASTY KNEE Left 11/21/2018 Laterality: Left; Surgeon: New Mcclure MD; Location: [facility] EXTRACTION EXTRACAPSULAR CATARACT W/ IMPLANT (ECCE IOL) Bilateral 2018 [facility] TREATMENT OPEN PATELLAR FX W/ INTERNAL [...] 01, 2020 10:38am 10-01-[address] [facility] ([id number]) Docusate 100 MG capsule Take 1 capsule [...] 01, 2020 10:38am 10-01-[address] [facility] ([id number]), Disp: , Rfl: Docusate 100 MG capsule, [...] mesh. All pertinent portions of the clinical network desktop support specialist documentation was reviewed and agree. EFREN Logan Ortho Nurse - Established Patient Intake Room#: 5 Date: 05/19/2023 2:43 PM Patient: Danyelle Haskins MR#: [id number] : 1955 Age: 67 y.o. 3 wks [...] CATARACT W/ IMPLANT (ECCE IOL) Bilateral 2018 [facility] TREATMENT OPEN PATELLAR FX W/ INTERNAL [...] 01, 2020 10:38am 10-01-[address] [facility] ([id number]) Docusate 100 MG capsule Take 1 capsule [...] 01, 2020 10:38am 10-01-[address] [facility] ([id number]), Disp: , Rfl: Docusate 100 MG capsule, [...] [sulfamethoxazole-trimethoprim], and levofloxacin. documented in this encounter [facility] 08-31-2021 Evaluation note Encounter Date Diagnosis [...] management and focal injections would be appropriate. [facility] Other 05-10-2021 Note [id number]:127[facility] 03-12-2021 NoteCystoscopy with Urethral Dilation ? [...] if you have a fever over 100 degreesDetwiler [facility] Hospital05-[facility] History of Present illness Narrative* New [...] have reviewed the findings of the clinical network desktop support specialist and agree with their assessment. Ortho Nurse Established Patient Intake Room#: 3 F/U from PT, seen 11-19-20, left knee TKA 11-21-18 with extensor mechanism repair, states her pain is a 2 and she is doing much better Date: 03/11/2021 1:59 PM Patient: Danyelle Haskins MR#: [id number] : 1955 Age: 65 y.o. Referring Physician: [...] CATARACT W/ IMPLANT (ECCE IOL) Bilateral 2017 [facility] TREATMENT OPEN PATELLAR FX W/ INTERNAL [...] mouth 3 times daily as needed. Biotin 91173 MCG Tab take 2 tablets by mouth 2 times daily.. Calcium Carb-Cholecalciferol (CALCIUM 600 + D) 600-200 MG-UNIT Tab tablet Take 2.5 tablets by mouthDaily (with lunch). Diclofenac Sodium 1 % Gel gel Diclofenac Diclofenac Sodium Active 4 GM Topical Four times daily October 01, 2020 10:38am 10-01-2020 [facility] ([id number]) ferrous sulfate 325 (65 Fe) MG Tab [...] as needed. , Disp: , Rfl: Biotin 54660 MCG Tab, take 2 tablets by mouth 2 times daily.. , Disp: , Rfl: Calcium Carb-Cholecalciferol (CALCIUM 600 + D) 600-200 MG-UNIT Tab tablet, Take 2.5 tablets by mouth Daily (with lunch). , Disp: , Rfl: Diclofenac Sodium 1 % Gel gel, Diclofenac Diclofenac Sodium Active 4 GM Topical Four times daily October 01, 2020 10:38am 10-01-[address] [facility] ([id number]), Disp: , Rfl: ferrous sulfate 325 (65 [...] 03/11/2021 1:59 PM Patient: Danyelle Haskins MR#: [id number] : 1955 Age: 65 y.o. Referring Physician: [...] CATARACT W/ IMPLANT (ECCE IOL) Bilateral 2018 [facility] TREATMENT OPEN PATELLAR FX W/ INTERNAL [...] mouth 3 times daily as needed. Biotin 43026 MCG Tab take 2 tablets by mouth 2 times daily.. Calcium Carb-Cholecalciferol (CALCIUM 600 + D) 600-200 MG-UNIT Tab tablet Take 2.5 tablets by mouthDaily (with lunch). Diclofenac Sodium 1 % Gel gel Diclofenac Diclofenac Sodium Active 4 GM Topical Four times daily October 01, 2020 10:38am 10-01-[address] [facility] ([id number]) ferrous sulfate 325 (65 Fe) MG Tab [...] as needed. , Disp: , Rfl: Biotin 43759 MCG Tab, take 2 tablets by mouth 2 times daily.. , Disp: , Rfl: Calcium Carb-Cholecalciferol (CALCIUM 600 + D) 600-200 MG-UNIT Tab tablet, Take 2.5 tablets by mouth Daily (with lunch). , Disp: , Rfl: Diclofenac Sodium 1 % Gel gel, Diclofenac Diclofenac Sodium Active 4 GM Topical Four times daily October 01, 2020 10:38am 10-01-[address] [facility] ([id number]), Disp: , Rfl: ferrous sulfate 325 (65 [...] oxcarbazepine; and bactrim [sulfamethoxazole-trimethoprim]. [facility]* Diagnosis Left knee pain, unspecified chronicity- Primary Right knee pain, unspecified chronicity [facility] Diagnosis Hx of total knee arthroplasty, right- Primary [facility] noteNo assessment information availableMer[facility] Work Phone: Evaluation note* Diagnosis Hx of total knee arthroplasty, right- Primary Hx of total knee arthroplasty, left [facility] Diagnosis Preop testing- Primary Preoperative examination, unspecified Abnormal finding of blood chemistry, unspecified Abnormal coagulation profile Failed total left knee replacement, initial encounter [facility] - Reported* Type Description Date Medical History connective tissue disease Medical History Arthritis Medical History spinal compression Surgical History back surgery Surgical History ganglion cyst Surgical History tonsillectomy Surgical History hysterectomy Surgical History tendon repair Surgical History wrist surgery Surgical History cataracts, bilaterally Surgical History Abdominal Ablation Hospitalization History see surgical hx [facility] Other Summary Purpose Family History No Family History Records Found Relationship Condition Age at Onset Recorded Date/T kayode Not Specified Diabetes mellitus Unknown Arthritis Unknown Family history of cataracts Unknown Hypertension Unknown father Liposarcoma Unknown sister Malignant neoplasm of thyroid gland Unkno wn family member Pituitary neoplasm Unknown Advance Directives No Advanced Directives Records FoundDocuments on File Type Date Recorded Patient Voice And Data Technician Expl anation Advance Directives/Living Will 11/21/2018 8:22 AM Advance Directives/Living Will 11/21/2018 8:26 AM Latest Code Status on File Code Status Date Activated Date Inactivated Comments Full Code 11/21/2018 2:46 PM Full Code 07/18/2017 4:04 PM 07/21/2017 7:25 PM Documents on File Type Date Recorded Patient Voice And Data Technician Expl anation Advance Directives/Living Will 11/21/2018 8:22 [...] Date Activated Date Inactivated Comments Full Code 11/29/2023 5:14 PM Code Status History Code Status Date Activated Date Inactivated Comments Full Code 04/26/2023 2:32 PM 11/29/2023 5:14 PM Full Code 11/21/2018 2:46 PM 04/26/2023 2:32 PM Full Code 07/18/2017 4:04 PM 07/21/2017 7:25 PM Reason for Referral Status Reason Specialty Diagnoses / Procedures Referred By Contact Referred To Contact New Request Diagnoses Pre-op exam Procedures ECG New Mcclure MD [address] [place] [address] Status Reason Specialty Diagnoses / Procedures Referred By Contact Referred To Contact New Request Procedures ACTIVITY TOLERATED Rajinder Green APRN-CNP [address] [place] [phone] Status Reason Specialty Diagnoses / Procedures Referre d By Contact Referred To Contact Rajinder Green APRN-CNP [address] [place], [place] [id number] Status Reason Specialty Diagnoses / Procedures Referred By Contact Referred To Contact New Request Diagnoses Hx of total knee arthroplasty, left Procedures XR KNEE LEFT 2 VIEWS XR KNEE LEFT 3 VIEWS Rajinder Green APRN-DIETETIC AIDE [address] [place], [place] [address] Status Reason Specialty Diagnoses / Procedures Referred By Contact Referred To Contact New Request Physical Therapy Diagnoses History of total knee arthroplasty, left Right hip pain New Mcclure MD [address] [place], [place] [id number] Scheduling Instructions . Status Reason Specialty Diagnoses / Procedures Referred By Contact Referred To Contact Schedule Outgoing - Transfer of Care Physical Therapy Diagnoses History of total knee arthroplasty, left New Mcclure MD [address] [place], [place] [id number] Status Reason Specialty Diagnoses / Procedures Referred By Contact Referred To Contact New Request Diagnoses Right hip pain Procedures XR HIP WITH PELVIS RIGHT New Mcclure MD [address] [place], [place] [id number] Status Reason Specialty Diagnoses / Procedures Referred By Contact Referred To Contact New Request Sports Ortho and Primary Care Sports Diagnoses Right hip pain New Mcclure MD [address] [place] [address] Status Reason Specialty Diagnoses / Procedures Referred By Contact Referred To Contact New Request Diagnoses Right knee pain, unspecified chronicity Procedures LARGE JOINT INJECTION: R knee New Mcclure MD [address] [place] [address] Status Reason Specialty Diagnoses / Procedures Referred By Contact Referred To Contact New Request Diagnoses Left knee pain, unspecified chronicity Procedures XR KNEE LEFT 2 VIEWS XR KNEE LEFT 3 VIEWS New Mcclure MD [address] [place] [address] Status Reason Specialty Diagnoses / Procedures Referred By Contact Referred To Contact Pending Review Diagnoses History of total knee arthroplasty, left Procedures XR KNEE LEFT 3 VIEWS New Mcclure MD [address] [place] [address] Status Reason Specialty Diagnoses / Procedures Referred By Contact Referred To Contact Patient to Arrange Physical Therapy Diagnoses Pain in prosthetic joint, initial encounter New Mcclure MD [address] [place], [place] [phone] Status Reason Specialty Diagnoses / Procedures Referred By Contact Referred To Contact New Request Diagnoses Hx of total knee arthroplasty, left Procedures XR KNEE LEFT 3 VIEWS New Mcclure MD [address] [place] [address] Status Reason Specialty Diagnoses / Procedures Referred By Contact Referred To Contact Patient to Arrange Physical Therapy Diagnoses History of total knee arthroplasty, left New Mcclure MD [address] [place] [address] Specialty Diagnoses / Procedures Referred By Contac t Referred To Contact Diagnoses Hx of total knee arthroplasty, right Procedures XR KNEE RIGHT 3 VIEWS Rajinder Green, CAKE FROSTER-DIETETIC AIDE [address] [place] [address] Referral ID Status Reason Start Date Expiration Date V isits Requested Visits Authorized [id number] New Request 05/11/2023 06/04/2024 1 1 Specialty Diagnoses / Procedures Referred By Contac t Referred To Contact Diagnoses Hx of total knee arthroplasty, right Procedures XR BONE LENGTH STUDY New Mcclure MD [address] [place] [address] Referral ID Status Reason Start Date Expiration Date V isits Requested Visits Authorized [id number] New Request 08/30/2023 09/23/2024 1 1 Specialty Diagnoses / Procedures Referred By Contac t Referred To Contact Diagnoses Hx of total knee arthroplasty, right Procedures XR KNEE RIGHT 3 VIEWS New Mcclure MD [address] [place] [address] Referral ID Status Reason Start Date Expiration Date V isits Requested Visits Authorized [id number] New Request 08/30/2023 09/23/2024 1 1 Specialty Diagnoses / Procedures Referred By Contac t Referred To Contact Diagnoses Hx of total knee arthroplasty, left Procedures XR KNEE LEFT 3 VIEWS New Mcclure MD [address] [place] [id number] Referral ID Status Reason Start Date Expiration Date V isits Requested Visits Authorized [id number] New Request 08/30/2023 09/23/2024 1 1 Specialty Diagnoses / Procedures Referred By Contac t Referred To Contact Diagnoses Preop testing Procedures PREPARE TO TRANSFUSE RED BLOOD CELLS New Mcclure MD [address] [place] [id number] Referral ID Status Reason Start Date Expiration Date V isits Requested Visits Authorized [id number] New Request 11/01/2023 11/25/2024 1 1 Specialty Diagnoses / Procedures Referred By Contac t Referred To Contact Diagnoses Preop testing Procedures ECG New Mcclure MD [address] [place] [id number] Referral ID Status Reason Start Date Expiration Date V isits Requested Visits Authorized [id number] New Request 10/27/2023 11/20/2024 1 1 Instructions [...] the day of surgery. Pre-Admission Testing Dept. [phone] Call if you have any changes in [...] of surgery LAST DOSE: DATE TIME Biotin 20588 MCG Tab take 2 tablets by mouth [...] LAST DOSE: DATE TIME Hydroxychloroquine Sulfate (HYDROXYCHLOROQUINE, [id number],) 200 MG Tab Take 200 mg by [...] encounter History of Present Illness * Everton Ball, RN - 10/23/2018 9:00 AM EST Formatting [...] Patient reports feeling ready to go to [facility] later today Cognitive Status Examination Orientation Status [...] reach Communication Patient to discharge to [facility] later today Transfer Skill: Sit To Stand, Rehab Eval Porter (Sit-Stand Transfers) supervision Physical Assist/Nonphysical Assist: Sit/Stand 1 person assist Weight-Bearing Restrictions: Sit/Stand toe touch weight-bearing Assistive Device For Transfer: Sit/Stand 2 wheeled walker Gait Skills, PT Eval Level of Porter: Gait stand-by assist Weight-Bearing Restrictions: Gait toe touch weight-bearing Assistive Device For Transfer: Gait 2 wheeled walker Gait Distance other (see comments) (60 ft) Gait Analysis, PT Eval Gait Pattern Used swing-to gait Stair Negotiation Level of Porter: Stair Negotiation unable to perform Clinical Impression [...] gait training. Maintain frequency yes * Maryam Zapata [facility],PharmD - 11/24/2018 1:26 PM EST Apixaban (Eliquis) Patient Education / Transition of Care PATIENT: Danyelle Haskins Room/Bed: [facility] Apixaban (Eliquis) Education Patient was provided with Apixaban (Eliquis) Education Sheet. Discussed in detail with patient about what Apixaban is, to take as directed, what to do if a dose is missed, and emphasized that compliance is extremely important to avoid stroke or any other serious event. Additional education was provided regarding side effects that should be reported to their physicianor health human services care specialist as soon as possible. I also advised the patient to provide an updated medication list to all health lawn care professional as certain medications can interact with apixaban. Patient verbally acknowledged an understanding of the information provided. Please contact pharmacyif there are any questions. Signed: Maryam Zapata [facility],PharmD, [facility] Phone: [phone] Date/Time: 11/24/2018 1:26 PM * Krystal Bravo, [...] UE exercises Therapist Information License # [id number] * Tanvi Hernandez, DIETETIC AIDE - 11/23/2018 1:43 PM EST Formatting of this note may be different from the original. 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 I agree with their findings and plan with any exceptions or additions noted below. Doing well today. Principal Problem: Pain in left knee Active Problems: Obesity: body mass index of 30.0-34.9 Benign hypertension Rheumatoid arthritis GERD (gastroesophageal reflux disease) Synovial hernia * Demarcus Hutchison, TANIA - 11/23/2018 11:39 AM EST Formatting of [...] like knee brace had slid down leg. 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 Impression: status post TKA ext [facility] recon PLAN: 1. PT/OT 2. DVT prophylaxis 3. Discharge planning * Demarcus Hutchison, OUTBOARD MOTORBOAT RIGGER - 11/22/2018 4:07 PM EST Formatting of [...] Transfer Skill: Sit To Stand, Rehab Eval Porter (Sit-Stand Transfers) contact guard Physical Assist/Nonphysical Assist: Sit/Stand 1 person assist Weight-Bearing Restrictions: Sit/Stand toe touch weight-bearing (pt using NWB on L LE) Assistive Device For Transfer: Sit/Stand 2 wheeled walker Gait Skills, PT Eval Level of Porter: Gait contact guard Weight-Bearing Restrictions: Gait toe touch weight-bearing (Pt using NWB on L LE) Assistive Device For Transfer: Gait 2 wheeled walker Gait Distance (20ft, 20ft) Gait Analysis, PT Eval Gait Pattern Used swing-to gait Plan Plan for next visit Plan to continue with strengthening and transfers/gait Maintain frequency yes * Aurora Arroyo, TECHNICAL SERVICES LIBRARIAN - 11/22/2018 12:52 PM EST Call received from [facility] stating they can take patient anytime on Tuesday afternoon or after. * Demarcus Hutchison, OUTBOARD MOTORBOAT RIGGER - 11/22/2018 11:56 AM EST Formatting of [...] Transfer Skill: Sit To Stand, Rehab Eval Porter (Sit-Stand Transfers) contact guard Physical Assist/Nonphysical Assist: Sit/Stand 1 person assist Weight-Bearing Restrictions: Sit/Stand toe touch weight-bearing (NWB on L LE) Assistive Device For Transfer: Sit/Stand 2 wheeled walker Gait Skills, PT Eval Level of Porter: Gait contact guard Weight-Bearing Restrictions: Gait toe touch weight-bearing (pt using NWB on L LE) Assistive Device For Transfer: Gait 2 wheeled walker Gait Distance 25 feet Gait Analysis, PT Eval Gait Pattern Used swing-to gait Plan Plan for next visit Plan to continue with strengthening, transfers/gait, and practice car transfer Maintain frequency yes * Jacey Valdez, CAKE FROSTER-DIETETIC AIDE - 11/22/2018 10:52 AM EST Formatting of this note may be different from the original. 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 I agree with the examination, assessment, and plan as described below by the BOX ESTIMATOR with the following additions/exceptions: Feeling well today. [...] with post operative care. * Rajinder Green, NIURKA-MARTY - 11/22/2018 8:52 AM EST Formatting of [...] * Nidhi Jiang - 11/22/2018 8:43 AM [facility] met with patient on this date to discuss discharge plans. Patient explained that she is currently living alone in a single story home. Patient stated that she does not have any children, but she does have family in the area that is helpful and supportive. Patient states that she is currently employed at [employer] in [place]. She stated that prior to the surgery she was completely independent and able to cook, clean and drive. Patient states that her goal upon discharge it to go to an extended care facility to get more therapy for her knee and regain her strength. Patient stated that she wanted to go to the [facility] as it is close to her home. Patient reviewed and signed the Area Nursing facility list for [facility]. CM to make referral. CM to follow. * Lawrence Krystal, OT - 11/21/2018 6:00 PM EST Formatting of [...] 0 Equipment Available wheeled walker;shower chair;elevated toilet seat;vice president payer;sock-aid;long-handled shoe horn;hand held shower hose Cognitive Status Examination Orientation Status (Cognition) oriented x 4 Level of Consciousness alert Able to Follow Commands (Communication) WNL Personal Safety and Judgment intact Short Term Memory intact Alf Memory intact Vision (check all that apply) Vision prescription glasses Sensory Examination Sensory Examination WFL (numbness in bilateral LE at baseline) Range of Motion (ROM) Range of Motion Examination bilateral upper extremity ROM was WFL Bed Mobility Skill: Supine to Sit, Rehab Eval Level of Porter: Supine/Sit stand-by assist Physical Assist/Nonphysical Assist: Supine/Sit 1 person assist Transfer Skill: Sit to Stand, Rehab Eval Level of Porter: Sit/Stand contact guard Physical Assist/Nonphysical Assist: Sit/Stand 1 person assist Weight-Bearing Restrictions: Sit/Stand toe touch weight-bearing Assistive Device for Transfer: Sit/Stand wheeled walker Upper Body Dressing Level of Porter (set up) Lower Body Dressing Level of Porter moderate assist (50% patients effort) Physical Assist/Nonphysical Assist 1 person assist Assistive Device vice president payer General Therapy Interventions Planned Therapy Interventions (OT [...] Prior Functional Impairment in Daily Activity - CH CURRENT [facility] Daily Activity Inpatient Short Form Putting on/Taking [...] yes Goals Goals For Discharge discharge to [facility] Discussed risk / benefits with patient Therapist Recommendations At Discharge Recommendations OT Services recommended at Discharge Plan Plan Narrative continue with bathing, dressing and transfer training Therapist Information License # [id number] 1. Pt will complete LB dressing min [...] (Adult, OB, Peds) Pain Location knee, left (12/17) Pain Management Interventions positioning;declines intervention Cognitive Status [...] Supine to Sit, Rehab Eval Level of Porter: Supine/Sit stand-by assist Transfer Skill: Sit To Stand, Rehab Eval Porter (Sit-Stand Transfers) minimum assist (75% patient effort) Weight-Bearing Restrictions: Sit/Stand toe touch weight-bearing Assistive Device For Transfer: Sit/Stand 2 wheeled walker Gait Skills, PT Eval Level of Porter: Gait contact guard Weight-Bearing Restrictions: Gait toe [...] swelling, and pt reports understanding. PRIOR LEVEL [facility] Basic Mobility Inpatient Short Form Turning over in bed 4 - No Assistance Sitting/standing from chair 4 - No Assistance Moving from lying on back to sitting 4 - No Assistance Moving to and from bed to chair 4 - No Assistance Walk in hospital room 4 - No Assistance Climbing 3-5 steps with a railing 4 - No Assistance PRIOR LEVEL [facility] Mobility Raw Score 24 PRIOR LEVEL [facility] Mobility Functional Limitation/Modifier 0.00% Prior Functional Impairment in Basic Mobility - CH CURRENT [facility] Basic Mobility Inpatient Short Form Turning over [...] 2 - A Lot of Assistance CURRENT [facility] Mobility Raw Score 17 CURRENT [facility] Mobility Functional Limitation/Modifier 50.57% Currently Impaired in Basic Mobility - CK Projected [facility] Mobility Raw Score 20 Projected [facility] Mobility Functional Limitation/Modifier 35.83% Projected Functional Impairment [...] as able. Therapist Information License # [id number] PT Goals: 1. Pt will demonstrate understanding [...] on LLE. PTAs notified. * Rajinder Green APRN-CNP - 11/21/2018 2:04 PM EST THIS PATIENT [...] ILLNESS: Danyelle is an established patient of [facility]. She is here today for followup. 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 I will leave this up to the house physician at the [facility], where she is residing today. She can [...] and concerns were addressed to her satisfaction. (DOC:[id number]) Procedures I have reviewed the findings of the clinical network desktop support specialist and agree with their assessment. Rajinder Green APRN-MARTY Ortho Nurse Established Patient Intake Room#: 4 Date: 12/14/2018 2:47 PM Patient: Danyelle Haskins MR#: [id number] : 1955 Age: 63 y.o. 3 wk [...] CATARACT W/ IMPLANT (ECCE IOL) Bilateral 2017 [facility] TREATMENT OPEN PATELLAR FX W/ INTERNAL [...] mouth 3 times daily as needed. Biotin 28937 MCG Tab take 2 tablets by mouth [...] as needed. , Disp: , Rfl: Biotin 63786 MCG Tab, take 2 tablets by mouth [...] 12/14/2018 2:47 PM Patient: Danyelle Haskins MR#: [id number] : 1955 Age: 63 y.o. 3 wk [...] CATARACT W/ IMPLANT (ECCE IOL) Bilateral 2018 [facility] TREATMENT OPEN PATELLAR FX W/ INTERNAL [...] mouth 3 times daily as needed. Biotin 27364 MCG Tab take 2 tablets by mouth [...] as needed. , Disp: , Rfl: Biotin 64876 MCG Tab, take 2 tablets by mouth [...] have reviewed the findings of the clinical network desktop support specialist and agree with their assessment. New Mcclure MD Ortho Nurse Established Patient Intake Room#: 3 Date: 03/01/2019 2:16 PM Patient: Danyelle Haskins MR#: [id number] : 1955 Age: 63 y.o. 6wk F/U [...] CATARACT W/ IMPLANT (ECCE IOL) Bilateral 2018 [facility] TREATMENT OPEN PATELLAR FX W/ INTERNAL FIXATION OR PATELLECTOMY Left 07/18/2017 Laterality: Left; Surgeon: New Mcclure MD; Location: [facility] OR PATELLECTOMY/HEMIPATELLECTOMY Left 07/18/2017 Laterality: Left; Surgeon: New Mcclure MD; Location: [facility] OR EXCISION SKIN LESION 07/2016 ARTHROPLASTY KNEE TOTAL Left 2015 OTHER SURGICAL 2011 back fusion l2,3,4,5 KNEE [...] mouth 3 times daily as needed. Biotin 01095 MCG Tab take 2 tablets by mouth [...] as needed. , Disp: , Rfl: Biotin 30315 MCG Tab, take 2 tablets by mouth [...] 03/01/2019 2:16 PM Patient: Danyelle Haskins MR#: [id number] : 1955 Age: 63 y.o. 6wk F/U [...] CATARACT W/ IMPLANT (ECCE IOL) Bilateral 2018 [facility] TREATMENT OPEN PATELLAR FX W/ INTERNAL [...] mouth 3 times daily as needed. Biotin 72076 MCG Tab take 2 tablets by mouth [...] as needed. , Disp: , Rfl: Biotin 11297 MCG Tab, take 2 tablets by mouth [...] have reviewed the findings of the clinical network desktop support specialist and agree with their assessment. New Mcclure MD Ortho Nurse Established Patient Intake Room#: 4 F/U Right hip, feeling better, pain of 5-6 when doing steps, done with PT; Left TKA 11-21-18, last PT was yesterday, pain of 1-2 Date: 04/18/2019 4:31 PM Patient: Danyelle Haskins MR#: [id number] : 1955 Age: 63 y.o. Referring Physician: [...] Veterans Pain Rating Scale) (Adult- Cognitively Intact) (04/18/19 162) Pain Location: knee, left;hip, right (04/18/191628) Select [...] CATARACT W/ IMPLANT (ECCE IOL) Bilateral 2017 [facility] TREATMENT OPEN PATELLAR FX W/ INTERNAL [...] mouth 3 times daily as needed. Biotin 31249 MCG Tab take 2 tablets by mouth [...] as needed. , Disp: , Rfl: Biotin 53202 MCG Tab, take 2 tablets by mouth [...] 04/18/2019 4:31 PM Patient: Danyelle Haskins MR#: [id number] : 1955 Age: 63 y.o. Referring Physician: [...] Veterans Pain Rating Scale) (Adult- Cognitively Intact) (04/18/199) Recent Labs No results found for: CRP [...] CATARACT W/ IMPLANT (ECCE IOL) Bilateral 2018 [facility] TREATMENT OPEN PATELLAR FX W/ INTERNAL [...] mouth 3 times daily as needed. Biotin 99240 MCG Tab take 2 tablets by mouth [...] as needed. , Disp: , Rfl: Biotin 59928 MCG Tab, take 2 tablets by mouth [...] perhaps not, though she is closer towards detention. She has had previous extensor mechanism reconstruction [...] of the right knee, which demonstrate knee, [id number] arthritis of the lateral compartment, and multiple [...] she like to proceed with surgical revision. (DOC:[id number]) LARGE JOINT INJECTION: R knee Date/Time: 11/21/2019 [...] have reviewed the findings of the clinical network desktop support specialist and agree with their assessment. New Mcclure MD Ortho Nurse Established Patient Intake Room#: 3---1 year post-op check for left TKA . She has been doing well. Date: 11/21/2019 1:38 PM Patient: Danyelle Haskins MR#: [id number] : 1955 Age: 64 y.o. Referring Physician: [...] CATARACT W/ IMPLANT (ECCE IOL) Bilateral 2018 [facility] TREATMENT OPEN PATELLAR FX W/ INTERNAL [...] mouth 3 times daily as needed. Biotin 04319 MCG Tab take 2 tablets by mouth [...] 11/21/2019 1:38 PM Patient: Danyelle Haskins MR#: [id number] : 1955 Age: 64 y.o. Referring Physician: [...] CATARACT W/ IMPLANT (ECCE IOL) Bilateral 2017 [facility] TREATMENT OPEN PATELLAR FX W/ INTERNAL [...] mouth 3 times daily as needed. Biotin 60398 MCG Tab take 2 tablets by mouth [...] Pain in prosthetic joint, initial encounter HPI: Danylele is here today for evaluation of her [...] have reviewed the findings of the clinical network desktop support specialist and agree with their assessment. Ortho Nurse Established Patient Intake Room#: 2 2 year Left TKA 11-21-18, pain of 2, cannot straighten her leg and it varinder, Amoxicillin was ordered today Date: 11/19/2020 2:31 PM Patient: Danyelle Haskins MR#: [id number] : 1955 Age: 65 y.o. Referring Physician: [...] CATARACT W/ IMPLANT (ECCE IOL) Bilateral 2017 [facility] TREATMENT OPEN PATELLAR FX W/ INTERNAL [...] Take 500 mg by mouth daily. Biotin 85909 MCG Tab take 2 tablets by mouth 2 times daily.. Calcium Carb-Cholecalciferol (CALCIUM 600 + D) 600-200 MG-UNIT Tab tablet Take 2.5 tablets by mouthDaily (with lunch). Diclofenac Sodium 1 % Gel gel Diclofenac Diclofenac Sodium Active 4 GM Topical Four times daily October 01, 2020 10:38am 10-01-2020 [facility] ([id number]) ferrous sulfate 325 (65 Fe) MG Tab [...] by mouth daily., Disp: , Rfl: Biotin 45437 MCG Tab, take 2 tablets by mouth 2 times daily.. , Disp: , Rfl: Calcium Carb-Cholecalciferol (CALCIUM 600 + D) 600-200 MG-UNIT Tab tablet, Take 2.5 tablets by mouth Daily (with lunch). , Disp: , Rfl: Diclofenac Sodium 1 % Gel gel, Diclofenac Diclofenac Sodium Active 4 GM Topical Four times daily October 01, 2020 10:38am 10-01-[address] [facility] ([id number]), Disp: , Rfl: ferrous sulfate 325 (65 [...] 11/19/2020 2:31 PM Patient: Danyelle Haskins MR#: [id number] : 1955 Age: 65 y.o. Referring Physician: [...] CATARACT W/ IMPLANT (ECCE IOL) Bilateral 2018 [facility] TREATMENT OPEN PATELLAR FX W/ INTERNAL [...] Take 500 mg by mouth daily. Biotin 95666 MCG Tab take 2 tablets by mouth 2 times daily.. Calcium Carb-Cholecalciferol (CALCIUM 600 + D) 600-200 MG-UNIT Tab tablet Take 2.5 tablets by mouthDaily (with lunch). Diclofenac Sodium 1 % Gel gel Diclofenac Diclofenac Sodium Active 4 GM Topical Four times daily October 01, 2020 10:38am 10-01-[address] [facility] ([id number]) ferrous sulfate 325 (65 Fe) MG Tab [...] by mouth daily., Disp: , Rfl: Biotin 24218 MCG Tab, take 2 tablets by mouth 2 times daily.. , Disp: , Rfl: Calcium Carb-Cholecalciferol (CALCIUM 600 + D) 600-200 MG-UNIT Tab tablet, Take 2.5 tablets by mouth Daily (with lunch). , Disp: , Rfl: Diclofenac Sodium 1 % Gel gel, Diclofenac Diclofenac Sodium Active 4 GM Topical Four times daily October 01, 2020 10:38am 10-01-[address] [facility] ([id number]), Disp: , Rfl: ferrous sulfate 325 (65 [...] have reviewed the findings of the clinical network desktop support specialist and agree with their assessment. New Mcclure MD Ortho Nurse Established Patient Intake Room#: 3 6 week F/U left knee ext mechanism repair, no C/O pain Date: 01/03/2019 3:26 PM Patient: Danyelle Haskins MR#: [id number] : 1955 Age: 63 y.o. Referring Physician: [...] CATARACT W/ IMPLANT (ECCE IOL) Bilateral 2017 [facility] TREATMENT OPEN PATELLAR FX W/ INTERNAL [...] mouth 3 times daily as needed. Biotin 99176 MCG Tab take 2 tablets by mouth [...] as needed. , Disp: , Rfl: Biotin 57136 MCG Tab, take 2 tablets by mouth [...] 01/03/2019 3:26 PM Patient: Danyelle Haskins MR#: [id number] : 1955 Age: 63 y.o. Referring Physician: [...] CATARACT W/ IMPLANT (ECCE IOL) Bilateral 2018 [facility] TREATMENT OPEN PATELLAR FX W/ INTERNAL [...] mouth 3 times daily as needed. Biotin 55837 MCG Tab take 2 tablets by mouth [...] as needed. , Disp: , Rfl: Biotin 38213 MCG Tab, take 2 tablets by mouth [...] arthroplasty, left- Primary Hospital Course * Tanvi Hernandez CNP - 11/24/2018 11:21 AM EST Formatting of this note may be different from the original. Discharge Summary Name: Danyelle Haskins Age: 63 y.o. 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 Commonly known as: LIORESAL Biotin 36450 MCG TABS take 2 tablets by mouth [...] tolerated. Discharge Follow-up: New Mcclure MD [address] [address] In 3 weeks Discharge Disposition: Patient will be discharged in stable condition. Discharge Time: Including assessment, planning, and medication reconciliation was greater than 35 min. Tanvi Hernandez DNP completing Discharge Summary for Dr. Vance Please note Portions of this note utilized [employer] dictation software, please excuse any typographical or [...] be removed by a nurse at the [facility] 10-14 days after surgery. Your surgery d [...] - 11/24/2018 5:16 PM EST Contact Office ([phone]) if: > Total Knee ROM < 90 [...] all new medications. Please refer to your [place] [facility] folder for handouts. You have been given [...] Care Everywhere. * Acetaminophen tablets or caplets ([place]) * Apixaban oral tablets ([place]) * Docusate capsules ([place]) * Oxycodone tablets or capsules ([place]) in this encounter Additional Source Comments INFORMATION SOURCE (unrecogn ized section and content) DATE CREATED AUTHOR 05/02/2018 [facility] DATE CREATED AUTHOR AUTHOR'S ORGANIZ ATION 05/02/2018 [facility] DATE CREATED AUTHOR AUTHOR'S ORGANIZ ATION 05/05/2018 [facility] DATE CREATED AUTHOR AUTHOR'S ORGANIZ ATION 03/22/2020 [facility] DATE CREATED AUTHOR AUTHOR'S ORGANIZ ATION 02/01/2022 [facility] DATE CREATED AUTHOR AUTHOR'S ORGANIZ ATION 02/13/2023 [facility] DATE CREATED AUTHOR AUTHOR'S ORGANIZ ATION 07/09/2023 [facility] DATE CREATED AUTHOR AUTHOR'S ORGANIZ ATION 11/12/2023 [facility] EPIC DATE CREATED AUTHOR AUTHOR'S ORGANIZ ATION 12/24/2023 [facility] Reason for Visit (unrecogniz ed section and content) Reason Comments Preoperative Nurse Assessment Surgery sc heduled 11/21/18 Status Reason Specialty Diagnoses / Procedures Referre d By Contact Referred To Contact Diagnoses 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] New Mcclure MD [address] [place] [id number] Status Reason Specialty Diagnoses / Procedures Referred By Contact Referred To Contact New Request Diagnoses Hx of total knee arthroplasty, left Procedures XR KNEE LEFT 2 VIEWS XR KNEE LEFT 3 VIEWS Rajinder Green, CAKE FROSTER-MARTY [address] [place] [id number] Reason Comments Post Op Visit Reason Comments Leg Swelling Reason Comments Follow-up Post Op Visit Status Reason Specialty Diagnoses / Procedures Referred By Contact Referred To Contact New Request Diagnoses Left knee pain, unspecified chronicity Procedures XR KNEE LEFT 2 VIEWS XR KNEE LEFT 3 VIEWS New Mcclure MD [address] [place] [phone] Reason Comments Follow-up Status Reason Specialty Diagnoses / Procedures Referred By Contact Referred To Contact Pending Review Diagnoses History of total knee arthroplasty, left Procedures XR KNEE LEFT 3 VIEWS New Mcclure MD [address] [place] [address] [id number] Reason Comments Post Op Visit Reason Comments Follow-up Reason Comments Skin Problem Status Reason Specialty Diagnoses / Procedures Referred By Contact Referred To Contact New Request Diagnoses Hx of total knee arthroplasty, left Procedures XR KNEE LEFT 3 VIEWS New Mcculre MD [address] [place] [address] [phone] Status Reason Specialty Diagnoses / Procedures Referred By Contact Referred To Contact New Request Diagnoses Right hip pain Procedures XR HIP WITH PELVIS RIGHT New Mcclure MD [address] [place] [address] [phone] Reason Comments Follow-up Specialty Diagnoses / Procedures Referred By Contac t Referred To Contact Diagnoses Hx of total knee arthroplasty, right Procedures XR KNEE RIGHT 3 VIEWS Rajinder Green, [employer]DI[employer]ETIC AIDE [address] [place] [address] [phone] Referral ID Status Reason Start Date Expiration Date V isits Requested Visits Authorized [id number] New Request 05/11/2023 06/04/2024 1 1 Specialty Diagnoses / Procedures Referred By Contac t Referred To Contact Diagnoses Hx of total knee arthroplasty, right Procedures XR BONE LENGTH STUDY New Mcclure MD [address] [place] [address] [id number] Referral ID Status Reason Start Date Expiration Date V isits Requested Visits Authorized [id number] New Request 08/30/2023 09/23/2024 1 1 Reason Comments Pain Reason Comments Preoperative Assessment LTKA revision w/ poss extensor mechanism reconstruction 11/29 SAF Pg *PAT ONLY Specialty Diagnoses / Procedures Referred By Contac t Referred To Contact Diagnoses Preop testing Procedures PREPARE TO TRANSFUSE RED BLOOD CELLS New Mcclure MD [address] [place] [phone] Referral ID Status Reason Start Date Expiration Date V isits Requested Visits Authorized [id number] New Request 11/01/2023 11/25/2024 1 1 Specialty Diagnoses / Procedures Referred By Contac t Referred To Contact Diagnoses Hx of total knee arthroplasty, left Procedures XR KNEE LEFT 1-2 VIEWS XR KNEE LEFT 3 VIEWS Rajinder Green, [employer] AIDE [address] [place] [address] [id number] Referral ID Status Reason Start Date Expiration Date V isits Requested Visits Authorized [id number] New Request 12/20/2023 01/13/2025 1 1 Care Teams (unrecognized sec tion and content) Federal Mediator Relationship Specialty Start Date End Date Yulisa Batres MD [address] [facility] [place] [address] PCP - General Family Medicine 03/18/23 Federal Mediator Relationship Specialty Start Date End Date Yulisa Batres MD [address] [facility] [place] [address] PCP - General Family Medicine 03/18/23 Federal Mediator Relationship Specialty Start Date End Date Yulisa Batres MD [address] [facility] [place] [address] PCP - General Family Medicine 03/18/23 Federal Mediator Relationship Specialty Start Date End Date Yulisa Batres MD [address] [facility] [place] [address] PCP - General Family Medicine 03/18/23 Federal Mediator Relationship Specialty Start Date End Date Yulisa Batres MD [address] [facility] [place] [address] PCP - General Family Medicine 03/18/23 Federal Mediator Relationship Specialty Start Date End Date Yulisa Batres MD [address] [facility] [place] [address] PCP - General Family Medicine 03/18/23 Goals [...] BE BASED ON THE PRIMARY CLINICAL RECORDS. [facility] provides no warranty or guarantee of the accuracy or completeness of information in this document.
[2023-12-30 11:40] VITALS: BP 153/83; PULSE 66; RESP 18; TEMP 36.7; O2SAT 94
--- NOTE | 2023-12-30 11:43 | PC.NURSE ---
1100 Arrival ambulatory per [employer] transport bus. Down to registration to be registered, accompanied by nurse. 1110 Returned to [facility], utilizes slide board, patient transferred to bed per assist of 2 nurses,, patient did very well with transfer nurses assisted with lower extremities to maintain immobility. patient already has knee immobilizer on left leg due to previous surgery and is non weight bearing, non weight bearing maintained. Rt lower extremity exposed, skin warm dry, no major edema noted, patient states she has no pain at this point, but states the xray shows she has a fractured patella. knee immobilizer applied, educated patient to notify nursing staff if noted any numbness or tingling pain etc in extremity, patient transferred to w/c with use of slide board, patient did very well. both legs suported with foot/leg supports bilaterally on wheelchair. 1145 Transported back to [facility] per [facility] transport bus.
== END 2023-12-30 10:53 | disposition home or self-care (01) ==
LOC: INF 10:54
PROVIDERS: PCP Family Medicine
DX: Z46.89 Encounter for fitting and adjustment of other specified devices (principal)

== ENCOUNTER 2024-06-15 12:43 | Outpatient (RCR) | payer MEDICARE, BC, SELFPAY | END 2024-09-04 11:37 | disposition home or self-care (01) | LOC: PT 12:43 | PROVIDERS: PCP Family Medicine | DX: M25.561 Pain in right knee (principal); M25.562 Pain in left knee; R26.2 Difficulty in walking, not elsewhere classified; R26.89 Other abnormalities of gait and mobility | CPT/HCPCS: 97110; 97112; 97113; 97162; 97530 ==

== ENCOUNTER 2024-06-28 14:42 | Outpatient (OUT) | payer MEDICARE, BC, SELFPAY ==
[2024-06-28 15:03] LABS: Hematocrit 35.6 % (36.0-48.0); Hemoglobin 11.2 g/dL (12.0-16.0); Mean Corpuscular HGB Conc 31.5 g/dL (29.9-35.2); Mean Corpuscular Hemoglobin 30.5 pg (26.7-34.0); Mean Platelet Volume 8.8 fL (9.5-13.5); Platelet Count 199 10^3/uL (150-450); Red Blood Count 3.67 10^6/uL (4.20-5.40); Red Cell Distribution Width 14.5 % (11.0-15.0); White Blood Count 3.3 10^3/uL (4.0-11.0)
[2024-06-28 15:04] LABS: Bilirubin Urine NEGATIVE (NEGATIVE); Blood Urine NEGATIVE (NEGATIVE); Clarity Urine CLEAR (CLEAR); Color Urine LT. YELLOW (YELLOW); Glucose Urine UA NEGATIVE (NEGATIVE); Ketones Urine NEGATIVE (NEGATIVE); Leukocyte Esterase Urine NEGATIVE (NEGATIVE); Nitrite Urine NEGATIVE (NEGATIVE); Protein Urine NEGATIVE (NEG/TRACE); Specific Gravity Urine <=1.005 (1.005-1.025); Urobilinogen Urine 0.2 EU/dL (0.2-1.0); pH Urine 6.5 (5.0-9.0)
[2024-06-28 15:10] LABS: Erythrocyte Sedimentation Rate 42 mm/hr (<=30)
[2024-06-28 15:15] LABS: Bacteria Urine TRACE #/HPF (NONE SEEN); Cast Seen? NONE SEEN #/LPF (NONE SEEN); Crystals Seen? None Seen #/HPF (None Seen); Mucus Urine NONE SEEN (NONE SEEN); RBC Urine 0-2 #/HPF (0-2); Squamous Epithelial Cell Urine NONE SEEN #/LPF (NONE/RARE); Urine Culture Indicated NO; WBC Urine 0-2 #/HPF (NONE SEEN)
[2024-06-28 15:26] LABS: Alanine Aminotransferase 22 U/L (14-59); Albumin Globulin Ratio 1.1; Albumin Level 3.6 g/dL (3.4-5.0); Alkaline Phosphatase 105 U/L (46-116); Anion Gap 11.1; Aspartate Amino Transferase 24 U/L (15-37); BUN Creatinine Ratio 20.5; Bilirubin Total 0.6 mg/dL (0.2-1.0); Calcium 9.3 mg/dL (8.5-10.1); Carbon Dioxide 29.2 mmol/L (21.0-32.0); Chloride 103 mmol/L (98-107); Eosinophils Absolute Manual 0.06 10^3/uL (0.00-0.70); Estimated GFR (African America >60 (>=60); Estimated GFR (Non-African Ame >60 (>=60); Globulin 3.4 g/dL; Glucose 89 mg/dL (74-106); Lymphocytes Absolute Manual 0.52 10^3/uL (1.20-3.80); Monocytes Absolute Manual 0.46 10^3/uL (0.30-0.80); Potassium 4.3 mmol/L (3.5-5.1); Segmented Neut Absolute Manual 2.24 10^3/uL (1.4-6.5); Sodium 139 mmol/L (136-145)
[2024-06-28 15:27] LABS: Anisocytosis 1+
[2024-06-29 05:07] LABS: Complement C3, Serum 154 mg/dL (82-167); Complement C4, Serum 38 mg/dL (12-38)
[2024-06-29 14:10] LABS: Complement, Total (CH50) >60 U/mL (>41)
== END 2024-06-28 14:43 | disposition home or self-care (01) ==
PROVIDERS: PCP Family Medicine; Visit Provider Registered Nurse
DX: M15.0 Primary generalized (osteo)arthritis (principal); M06.4 Inflammatory polyarthropathy; Z79.899 Other long term (current) drug therapy
CPT/HCPCS: 36415; 80053; 81001; 85007; 85027; 85652; 86160; 86162

== ENCOUNTER 2024-07-17 08:12 | Emergency (ER) | payer MEDICARE, BC, SELFPAY ==
[2024-07-17 08:28] VITALS: BP 163/2; PULSE 62; TEMP 36.6; O2SAT 95; BMI 33.2
--- NOTE | 2024-07-17 08:42 | CT_ITS ---
The [address] [address] Patient Name: YELENA HASKINS MRN: [id number] date: 1955 Sex: F Assigned Patient Location: ER Current Patient Location: [facility] Accession/Order Number: [id number] Exam Date: 07/17/2024 09:29 Report Date: 07/17/2024 10:45 At the request of: CONSTANTIN MILLER Procedure: CT wrist LT wo con EXAMINATION: CT wrist LT wo con HISTORY: Soft tissue swelling ulnar side COMPARISON: No relevant comparison available. TECHNIQUE: Multi-planar CT images were created without and/or with IV contrast according to examination type. Dose reduction techniques were achieved by using automated exposure control and/or adjustment of mA and/or kV according to patient size and/or use of iterative reconstruction technique. FINDINGS: BONES: Mild degenerative changes throughout the wrist, moderate involving the first carpal-metacarpal joints and the scaphoid-trapezium joint. No acute fracture or dislocation. 1.2 cm ossification which appears to represent heterotopic bone formation within the soft tissues proximal to the trapezial-first metacarpal joint and lateral to the scaphoid; no appreciable donor site. SOFT TISSUES: Skin surface marker anterior to the radial-ulnar joint overlying the carpal tunnel without appreciable abnormality in this region. EFFUSION: None visible. OTHER: Negative. CT/CT wrist LT wo con IMPRESSION: 1. Degenerative changes and likely sequela of remote injuries. 2. No acute fracture dislocation. 3. No appreciable acute soft tissue abnormality of the anterior proximal wrist in the area of concern. Electronically authenticated by: CHARO MAY Date: 07/17/2024 10:45
--- NOTE | 2024-07-17 08:43 | US_ITS ---
The [address] [address] Patient Name: YELENA HASKINS MRN: [id number] date: 1955 Sex: F Assigned Patient Location: ED.MAIN Current Patient Location: ER Accession/Order Number: [id number] Exam Date: 07/17/2024 09:00 Report Date: 07/17/2024 10:08 At the request of: CONSTANTIN MILLER Procedure: US venous doppler UE LT EXAMINATION: US venous doppler UE LT HISTORY: Left wrist swelling COMPARISON: No relevant comparison available. FINDINGS: REGION: Left upper extremity THROMBI: None. COMPRESSIBILITY: Normal compressibility. FLOW: Normal waveform and antegrade flow between 5 and 20 cm/s. OTHER: None. US/US venous doppler UE LT IMPRESSION: 1. No deep vein thrombus within the left upper extremity. Electronically authenticated by: CHARO MAY Date: 07/17/2024 10:08
--- NOTE | 2024-07-17 08:44 | ED_ITS ---
HPI HPI - Extremity Injury (Upper) General Chief Complaint: Extremity Injury, Upper Stated Complaint: UPPER LEFT EXTREMITY PAIN/SWELLING Time Seen by Provider: 07/17/24 08:31 Source: patient and family Mode of arrival: walk-in Limitations: no limitations History of Present Illness HPI narrative: This patient is here with with pain and soft tissue swelling over her left wrist area. 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 They do not know the specific autoimmune disorder that she has but they are saying it might be lupus. She has had a number of opinions on this. She is on a lot of immune suppressant therapy as noted. She uses a walker because of knee problems. She has not had any trauma or increased activity using her left, nondominant arm and wrist area. She says she occasionally gets numbness of the entire hand but that is been an ongoing problem. The soft tissue swelling noted over the ulnar wrist crease area is new. She has no loss of feeling. She says when she makes a fist it causes discomfort in that area. She has no flareup of any other symptoms in her other joints at this time. She has not been running a fever. Related Data Home Medications ?Medication ?Instructions ?Recorded ?Confirmed diclofenac sodium 1 % topical gel 4 g topical QID 07/17/24 07/17/24 (Arthritis Pain (diclofenac)) ibandronate 150 mg tablet 150 mg PO .ONCE A MONTH 07/17/24 07/17/24 methotrexate sodium 2.5 mg tablet 2.5 mg PO .QWEEKLY 07/17/24 07/17/24 methylprednisolone 4 mg tablets in 4 mg PRN muscle pain 07/17/24 a dose pack prednisone 10 mg tablet 20 mg PO .bid PRN muscle pain 07/17/24 07/17/24 tramadol 50 mg tablet 50 mg PO Q8H PRN pain 07/17/24 07/17/24 triamterene 37.5 1 cap PO DAILY 07/17/24 07/17/24 mg-hydrochlorothiazide 25 mg capsule Allergies Allergy/AdvReac Type Severity Reaction Status Date / Time oxcarbazepine AdvReac Severe Confusion Verified 07/17/24 08:49 sulfamethoxazole AdvReac Severe Joint Pain Verified 07/17/24 08:49 [From Bactrim] trimethoprim [From Bactrim] AdvReac Severe Joint Pain Verified 07/17/24 08:49 gabapentin AdvReac Intermediate Nausea Verified 07/17/24 08:49 alendronate sodium AdvReac Mild Heartburn Verified 07/17/24 08:49 ciprofloxacin AdvReac Unknown Unknown Verified 07/17/24 08:49 levofloxacin AdvReac Unknown Unknown Verified 07/17/24 08:49 Opioid HPI Opioid Management Most Recent Pain and Opioid Data: No Data to Display PFSH PFSH Social History Little interest or pleasure in doing things: not at all Feeling down, depressed, or hopeless: not at all Exam Narrative Exam Narrative: Very pleasant 68-year-old here with family member. Over the distal left wrist area specifically on the ulnar aspect there is diffuse soft tissue swelling approximately 3 x 2 cm over the proximal wrist fold ulnar aspect. Neurovascular examination distally is normal. She does have some discomfort with extending the wrist. There is no tenderness over the ulnar styloid. There is no tenderness over the navicular area or over the other metacarpals. The forearm has no evidence of erythema or lymphangitis. The elbow joint is unremarkable. She has classic osteoarthritis findings in the hand area but no other acute findings are noted. The area of soft tissue prominence is slightly tender. There is no overlying erythema of the skin or evidence of cellulitis. Constitutional Vital Signs, click to edit/add: Last Vital Signs Temp 97.9 F 07/17/24 08:28 Pulse 62 07/17/24 08:28 Resp 18 07/17/24 08:28 BP 163/82 H 07/17/24 09:01 Pulse Ox 95 07/17/24 08:28 O2 Del Method Room Air 07/17/24 08:28 Course Vital Signs Vital signs: Vital Signs Temperature 97.9 F 07/17/24 08:28 Pulse Rate 62 07/17/24 08:28 Respiratory Rate 18 07/17/24 08:28 Blood Pressure 163/2 H 07/17/24 08:28 Pulse Oximetry 95 07/17/24 08:28 Oxygen Delivery Method Room Air 07/17/24 08:28 Temperature 97.9 F 07/17/24 08:28 Pulse Rate 62 07/17/24 08:28 Respiratory Rate 18 07/17/24 08:28 Blood Pressure 163/82 H 07/17/24 09:01 Pulse Oximetry 95 07/17/24 08:28 Oxygen Delivery Method Room Air 07/17/24 08:28 MDM - Extremity Injury (Upper) MDM Narrative Medical decision making narrative: Patient with nontraumatic soft tissue swelling over the distal ulnar wrist area the ultrasound findings did not disclose any abscess or cystic structures. There is certainly no DVT. CT scan is pending. At this juncture we will make a copy of these reports for her to take to her drilling rig operator tomorrow. Will place her in a cock up splint for symptomatic pain relief. She can apply cold compresses as well Discharge Plan Discharge Chief Complaint: Extremity Injury, Upper Clinical Impression: Acute pain of left wrist Patient Disposition: Home, Self-Care Time of Disposition Decision: 10:44 Prescriptions / Home Meds: No Action tramadol 50 mg tablet 50 mg PO Q8H PRN (Reason: pain) diclofenac sodium [Arthritis Pain (diclofenac)] 1 % gel 4 g topical QID Rx Instructions: apply to single knee, ankle, foot; for foot includes sole/toes/top of foot methotrexate sodium 2.5 mg tablet 2.5 mg PO .QWEEKLY Patient Comments: TUESDAY ibandronate 150 mg tablet 150 mg PO .ONCE A MONTH Patient Comments: FIRST TUESDAY triamterene-hydrochlorothiazid 37.5-25 mg capsule 1 cap PO DAILY methylprednisolone 4 mg tablets,dose pack 4 mg PRN (Reason: muscle pain) prednisone 10 mg tablet 20 mg PO .bid PRN (Reason: muscle pain) Print Language: Estonian Additional Instructions: Take a copy of ultrasound and CT when you see your doctor tomorrow. Splint and ice several times a day Referrals: Stevie Hoyos MD [Primary Care Provider] - 1 week
[2024-07-17 09:01] VITALS: BP 163/82
[2024-07-17 11:00] VITALS: BP 155/90
== END 2024-07-17 11:01 | disposition home or self-care (01) ==
PROVIDERS: Emergency Provider Emergency Medicine Emergency Medical Services; PCP Family Medicine
DX: M25.532 Pain in left wrist (principal); M79.89 Other specified soft tissue disorders
CPT/HCPCS: 73200; 93971; 99284

== ENCOUNTER 2024-08-30 07:48 | Outpatient (OUT) | payer MEDICARE, BC, SELFPAY ==
--- OUTSIDE RECORDS SUMMARY | 2024-08-30 08:02 | XMS_ITS | CCD ---
Author Organization [facility] Care Team Providers Care Pack Puller Name Role Phone Wood, Star A Unavailable Unavailable Wood, Star A Unavailable Unavailable Wood, Star A Unavailable Unavailable Wood, Star A Unavailable Unavailable FOSTER, NEW Unavailable Unavailable FOSTER, NEW Unavailable Unavailable BROWNSTEPHEN TORRES Unavailable Unavailable ARLYN VANCE Unavailable Unavailable FOSTER, NEW Unavailable Unavailable DAYRON ZAVALA Unavailable Unavailable Salomón Gonzalez Unavailable Salomón Gonzalez Primary Care Provider [phone] Salomón Gonzalez Primary Care Provider [phone] Salomón Gonzalez DO Primary Care Provider Stephen Alicea Unavailable MEDARDO Hidalgo, DR MÁRQUEZ Primary Care Unavailable MISC, DR COBB Admitting [...] Primary Care Unavailable KARASIDaniel ., DR SANTIAGO Consulting Unavailabl e WEST, [...] Unavailable Yulisa Batres MD Primary Care Provider [phone] Yulisa Batres MD Primary Care Provider [phone] Mary Resendez Admitting Unavailable Mal, Mary Attending Unavailable Hoy, Yulisa M Primary Care Unavailable Monaco, Darren Referring Unavailable SELF, SELF Referring Unavailable ABBY, RAJINDER Attending Unavailable HOY, YULISA M Primary Care Unavailable ABBY, RAJINDER Referring Unavailable HOY, YULISA M Primary Care Unavailable ABBY, RAJINDER Attending Unavailable FOSTER, NEW Attending Unavailable SELF, SELF Referring Unavailable HOY, YULISA M Primary Care Unavailable FOSTER, NEW Attending Unavailable FOSTER, NEW Referring Unavailable HOY, YULISA M Primary Care Unavailable FOSTER, NEW Attending Unavailable SELF, SELF Referring Unavailable HOY, YULISA M Primary Care Unavailable FOSTER, NEW Attending Unavailable FOSTER, NEW Referring Unavailable HOY, YULISA M Primary Care Unavailable ABBY, RAJINDER Attending Unavailable HOY, YULISA M Primary Care Unavailable ABBY, RAJINDER Referring Unavailable ABBY, RAJINDER Attending Unavailable HOY, YULISA M Primary Care Unavailable ABBY, RAJINDER Referring Unavailable FOSTER, NEW Referring Unavailable FOSTER, NEW Attending Unavailable HOY, YULISA M Primary Care Unavailable FOSTER, NEW Attending Unavailable HOY, YULISA M Primary Care Unavailable SELF, SELF Referring Unavailable FOSTER, NEW Attending Unavailable FOSTER, NEW Referring Unavailable HOY, YULISA M Primary Care Unavailable ABBY, RAJINDER Referring Unavailable HOY, YULISA M Primary Care Unavailable ABBY, RAJINDER Attending Unavailable ABBY, RAJINDER Referring Unavailable ABBY, RAJINDER Attending Unavailable HOY, YULISA M Primary Care Unavailable FOSTER, NEW Attending Unavailable SELF, SELF Referring Unavailable HOY, YULISA M Primary Care Unavailable FOSTER, NEW Attending Unavailable FOSTER, NEW Referring Unavailable HOY, YULISA M Primary Care Unavailable FOSTER, NEW Attending Unavailable FOSTER, NEW Admitting Unavailable FOSTER, NEW Referring Unavailable HOY, YULISA M Primary Care Unavailable ELIE HARPER Attending Unavailable MAGALIE KAUFMAN Attending Unavailable ELIE HARPER Attending Unavailable GABY CHRISTIANSON Attending Unavailable ELIE HARPER Attending Unavailable MAGALIE KAUFMAN Attending Unavailable RAMON BARRETO Attending Unavailable ELIE HARPER Attending Unavailable ELIE HARPER Attending Unavailable Medardo OCONNELL, Yulisa Saavedra Primary Care Provider Sammy GREETING CARD EDITOR, Gaby Unavailable Darren Monaco MD Unavailable Allergies Allergy Classification Reported Allergen(s) Allergy Type Date of Onset Reaction(s) Facility Alendronate (1 source) Alendronate Drug Allergy 018 Abdominal Discomfort, Dyspepsia [facility] Anti-Epileptic Agents (3 sources) gabapentin Drug Allergy 018 Nausea and Vomiting, Blisters [facility] Sulfamethoxazole / Trimethoprim (1 source) Sulfamethoxazole / Trimethoprim Drug Allergy 021 Myalgia [facility] (20 sources) Alendronate Drug Allergy 018 Abdominal Discomfort, Dyspepsia, Rash [facility] Work Phone: (20 sources) gabapentin Drug Allergy 018 Nausea and Vomiting, Nausea Only, Rash [facility] Work Phone: (20 sources) gabapentin Drug Allergy 018 Blisters [facility] Work Phone: (20 sources) OXcarbazepine Drug Allergy 018 Nausea and Vomiting [facility] Work Phone: (18 sources) Ciprofloxacin Drug Allergy 021 Unknown, Unknown Reaction [facility] (20 sources) levoFLOXacin Drug Allergy 023 Unknown [facility] Other (20 sources) Sulfamethoxazole / Trimethoprim Drug Allergy 021 Myalgia [facility] Other (1 source) Alendronate Drug Allergy [facility] (1 source) gabapentin Drug Allergy [facility] (1 source) gabapentin Drug Allergy [facility] (1 source) OXcarbazepine Drug Allergy [facility] (2 sources) Alendronate; Translations: [alendronate sodium] Drug Allergy Unknown Reaction [facility] (6 sources) Sulfamethoxazole; Translations: [sulfamethoxazole] Drug Allergy Weakness [facility] (6 sources) Trimethoprim; Translations: [trimethoprim] Drug Allergy Weakness [facility] (1 source) Ciprofloxacin Drug Allergy [facility] Repository (1 source) gabapentin Drug Allergy [facility] Repository (1 source) OXcarbazepine Drug Allergy [facility] Repository (17 sources) Oxcarbazepine Propensity to adverse reactions to drug Nausea and Vomiting, Rash [facility] Medications Current Medications Medication Drug Class(es) [...] Mild Pain. 50 tablet 1 11/21/2018 Active take 1 tablet by thuy th twice daily as needed acetaminophen (Tylenol 8 Hour) 650 MG ER tablet Take 1-2 tablets by mouth 2 (two) times a day as needed for mild pain or moderate pain Do not crush, chew, or split. Active Acetaminophen (T YLENOL ARTHRITIS PAIN PO) [...] 0 Active apixaban 2.5 mg oral tablet (20 sources) Factor Xa Inhibitor Start: 11-29-2023 End: 01-03-2024 take 1 tablet by mouth every twelve hours apixaban 2.5 MG tablet Take 1 tablet by mouth every 12 hours. This medication is for blood clot prevention 70 tablet 11/29/2023 Active Start: 04-26-2023 End: 05-31-2023 take 1 [...] 2020 1:00am take 1 tablet by mouth in the mo rning ascorbic acid (Vitamin C) 500 MG tablet Take 500 mg by mouth in the morning. Active Ascorbic Acid (V itamin C) 1000 MG tablet Take 500 mg by mouth daily. 0 Active biotin 1 mg chewable tablet (20 sources) Start: 05-07-2021 take 1000 ug by mouth once daily Biotin Active 1000 MCG PO Daily May 07, 2021 12:00am Start: 10-01-2020 take 32900 ug by thuy th twice daily Biotin Active 89469 MCG PO Twice daily October 01, 2020 1:00am biotin 1 MG caps ule Take by mouth Daily Active take 2 tablets by mo [facility] twice daily Biotin 08708 MCG Tab Take 2 tablets by mouth [...] CAP PO Daily October 01, 2020 1:00am Calcium Carb-Cho lecalciferol (Oyster Shell Calcium w/D) 500-5 MG-MCG tablet Take by mouth Daily Active take 2.5 tablets by mouth once daily at lunch Calcium Carb-Cholecalciferol (CALCIUM 60 0 + D) 600-200 MG-UNIT Tab tablet Take 2.5 tablets by mouth Daily (with lunch). 0 Active calcium carbonate 1250 mg / cholecalciferol 1000 unt / vitamin k 0.4 mg chewable tablet (3 sources) Vitamin D Calcium-Vitamin D-Vitamin K (Calcium + D) 500-1000-40 MG-UNT-MCG chewable tablet 1 (one) time each day at the same time. Active carvedilol 25 mg oral tablet (20 sources) alpha-Adrenergic Heidi, beta-Adrenergic Heidi Start: 11-14-19 take 1 tablet by mouth twice daily carveDILOL 25 MG tablet Take 1 tablet by mouth 2 times daily. 11/14/2023 Active Start: 12-21-2022 [facility] carve[facility]ILOL 12.5 MG tablet Take [...] 1 07/01/2018 Active D-BIOTIN (18 sources) Biotin 29152 MCG Tab take 2 tablets by mouth 2 times daily.. 0 Active Biotin 41760 MCG Tab take 2 tablets by mouth [...] mg diclofenac sodium 0.01 mg/mg topical gel (20 sources) Nonsteroidal Anti-inflammatory Drug Start: 10-01-2020 Diclofenac Sodium 1 % Gel gel Diclofenac Diclofenac Sodium Active 4 GM Topical Four times daily October 01, 2020 10:38am 10-01-2020 [facility] ([id number]) 10/01/2020 Active Start: 10-01-2020 Diclofenac Sod ium 1 % Gel gel Diclofenac Diclofenac Sodium Active 4 GM Topical Four times daily October 01, 2020 10:38am 10-01-2020 [facility] ([id number]) 0 10/01/2020 Active Start: 10-01-2020 apply 4 [...] Start: 04-26-2023 take 1 capsule by mo uth twice daily Docusate 100 MG capsule Take 1 capsule by mouth 2 times daily. Hold for loose stools. 60 capsule 0 04/26/2023 Active Start: 07-18-2017 End: 11-24-2018 take 1 capsule by mouth twice daily docusate 100 MG Cap capsule Take 1 capsule by mouth 2 times daily. 60 capsule 0 11/21/2018 Active docusate sodium 50 mg / sennosides, correction 8.6 mg oral tablet (1 source) Start: 11-21-2018 senna-docusate (SENOKOT-S) 8.6-50 MG per tablet 2 tablet doxazosin 4 mg oral tablet (20 sources) alpha-Adrenerg ic Heidi Start: 12-30-2022 take [...] Glucosamine-Chondro it-Vit C-Mn (Glucosamine 1500 Complex) capsule (15 sources) Glucosamine-David droit -Vit C-Mn (Glucosamine 1500 Complex) capsule as directed Orally Active Glucosamine-David droit-Vit C-Mn (Glucosamine 1500 Complex) capsule Take by mouth daily. Active Glucosamine-David droit-Vit C-Mn (Glucosamine 1500 Complex) capsule Take by mouth daily. 0 Active Wfxaujriydb-Kbz-Sngkdgosb-Vi tc (Glucosamine Complex-Msm) Capsule (1 source) Start: 10-01-2020 take 1 capsule by mouth once daily Dtzlblehkwj-Jsi-Nrhvejcob-Vitc (Glucosamine Complex-Msm) Capsule Active 1 CAP PO [...] mg hydroxychloroquine sulfate 200 mg oral tablet (20 sources) Antimalarial, Antirheumatic Agent Start: 10-01-2020 End: 11-24-2018 take 200 mg by mouth twice daily Hydroxychloroquine Active 200 MG PO Twice daily October 01, 2020 1:00am take 1 tablet by thuy th in the morning hydroxychloroquine (Plaquenil) 200 MG ta blet Take 200 mg by mouth in the morning and 200 mg before bedtime. Active leflunomide 20 mg oral tablet (20 sources) Antirheumatic Agent Start: 10-01-2020 take 20 [...] 2020 1:00am take 1 tablet by mouth in the mo rning lisinopril 40 MG tablet Take 40 mg by mouth in the morning. Active meloxicam 7.5 mg oral tablet (16 sources) Nonsteroidal Anti-inflammatory Drug Start: 11-29-2023 take [...] 04/26/2023 Active methotrexate 2.5 mg oral tablet (20 sources) Folate Analog Metabolic Inhibitor Start: 10-03-2020 take 5 tablets by mouth every week methotrexate 2.5 MG tablet TAKE 5 TABLETS BY MOUTH ONCE EVERY WEEK 0 10/03/2020 Active Start: 10-01-2020 Methotrexate S odium Active 12.5 MG PO Q7D October 01, 2020 1:00am 6 one day a week on Tuesday End: 11-24-2018 methotrexate 2.5 MG tablet e very 7 days. Active methylPREDNISolone (16 sources) Corticosteroid Start: 02-21-2023 methylPREDNISo lone (Medrol Dospak) 4 MG tablets TAKE DIRECTED 02/21/2023 Active Start: 02-21-2023 methylPREDNIso lone 4 [...] mg oxyCODONE hydrochloride 5 mg oral tablet (20 sources) Opioid Agonist Start: 11-29-2023 take 1-2 tablets by mouth every four to six hours as needed for pain oxyCODONE 5 MG tablet Indications: Acute postoperative pain of left knee Take 1-2 tabs po q 4-6 hours prn pain. Wean as tolerated. 30 tablet 11/29/2023 Active Start: 04-26-2023 oxyCODONE 5 MG tablet Indications: [...] 2020 1:00am predniSONE 5 mg oral tablet (20 sources) Start: 05-07-2021 Prednisone Act damian 5 MG PO Twice daily May 07, 2021 12:00am Dr Monaco placed on. 1-2 as needed per day pregabalin 25 mg oral capsule (20 sources) Start: 2024 End: 10-17-2024 take 1 capsule by mouth in the morning pregabalin (Lyrica) 25 MG capsule Indications: Polyneuropathy , Spinal stenosis of lumbar region, unspecified whether neurogenic claudication present , Degenerative disc disease, lumbar Take 1 capsule (25 mg) by mouth in the morning and 1 capsule (25 mg) before bedtime. 60 capsule 2 2024 10/17/2024 Active Start: 02-15-2023 pregabalin 25 MG capsule every [...] 1 enema sucralfate 1000 mg oral tablet (16 sources) Aluminum Complex Start: 11-29-2023 take 1 tablet by mouth twice daily Sucralfate 1 g tablet Take 1 tablet by mouth 2 times daily. 60 tablet 11/29/2023 Active Start: 04-26-2023 take 1 tablet by thuy th twice daily Sucralfate 1 g tablet Take 1 tablet by mouth 2 times daily. While on NSAID therapy 84 tablet 0 04/26/2023 Active therapeutic multivitamin-minerals tablet (16 sources) Start: 11-29-2023 take 1 tablet by mouth at bedtime therapeutic multivitamin-minerals tablet Take 1 tablet by mouth at bedtime. 30 tablet 11/29/2023 Active Start: 04-26-2023 take 1 tablet by thuy th at bedtime therapeutic multivitamin-minerals tablet Take 1 tablet by mouth at bedtime. 30 tablet 0 04/26/2023 Active thioctic acid 200 mg oral tablet (13 sources) Start: 10-01-2020 take 200 mg by mouth once daily Alpha Lipoic Acid Active 200 MG PO Daily October 01, 2020 1:00am Alpha-Lipoic Aci d 200 MG capsule 1 capsule daily. Active tiZANidine 4 mg oral tablet (20 sources) Central alpha-2 Adrenergic Agonist take 1 tablet by mouth every six hours as needed tiZANidine (Zanaflex) 4 MG tablet Take 4 mg by mouth every 6 (six) hours if needed. Active traMADol hydrochloride 50 mg oral tablet (20 sources) Opioid Agonist Start: 3 take 1 [...] by mouth. 0 Active Turmeric Root Extract (16 sources) Start: 05-07-2021 take 500 mg by mouth once daily Turmeric Root Extract Active 500 MG PO Daily May 07, 2021 12:00am Turmeric 500 MG capsule as directed Orally Active TURMERIC PO as d irected Orally Active [...] 2021 11:17am take 1 tablet by thuy twice daily as needed ferrous sulfate 325 [...] Problem Classification Problem Date Documented Date Episodic/Chronic Acquired foot deformities (2 sources) Acquired deformity of toe of left foot; Translations: [Acquired deformities of toe(s), unspecified, left foot] 08-12-2024 Episodic Cataract (6 sources) After-cataract of left eye; Translations: [Other secondary cataract, left eye] Onset: 07-13-2023 Resolved: 07-31-2024 07-31-2024 Chronic Deficiency and other anemia (1 source) Iron deficiency anemia; Translations: [Iron deficiency anemia, unspecified] 05-07-2021 Episodic Diseases of white blood cells (1 source) Leukopenia; Translations: [Decreased white blood cell count, unspecified] 05-07-2021 Chronic Disorders of lipid metabolism (20 sources) Hyperlipidemia, unspecified; Translations: [Hyperlipidemia] Onset: 10-18-2022 [...] D DEFICIENCY UNSPECIFIED] Onset: 10-26-2022 Chronic Osteoarthritis (20 sources) Primary generalized (osteo)arthritis; Translations: [Osteoarthritis of right knee joint] Onset: 02-12-2023 04-26-2023 Chronic Osteoporosis (4 sources) Age-related osteoporosis without current pathological fracture; Translations: [AGE-REL OSTEOPOR W/O CURR PATH FX] Onset: 08-27-2022 Chronic Other aftercare (1 source) Other intermediate manager (current) drug therapy; Translations: [OTH JAIL CURRENT DRUG THERAPY] Onset: 02-12-2023 Episodic Other aftercare (3 sources) Drug therapy finding; Translations: [Other intermediate (current) drug therapy] Onset: 07-31-2024 07-31-2024 Episodic Other circulatory disease (16 sources) Raynaud's phenomenon; Translations: [Raynaud's syndrome without gangrene] Onset: 04-20-2023 04-20-2023 Chronic Other connective tissue disease (16 sources) History of total knee arthroplasty; Translations: [Presence of unspecified artificial knee joint] Onset: 11-30-2023 11-30-2023 Chronic Other connective tissue disease (2 sources) History of right total knee replacement; Translations: [Presence of right artificial knee joint] 05-11-2023 Chronic Other connective tissue disease (2 sources) History of left total knee replacement; Translations: [Presence of left artificial knee joint] 08-30-2023 Chronic Other connective tissue disease (2 sources) Presence of left artificial knee joint; Translations: [Presence of left artificial knee joint] Onset: 02-23-2024 Chronic Other connective tissue disease (2 sources) [...] blood and blood-forming organs] 10-01-2020 Chronic Other hereditary and degenerative nervous system conditions (3 sources) Blepharospasm; 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] Onset: 04-24-2024 04-24-2024 Chronic Other nervous system disorders (3 sources) Peripheral nerve disease ; Translations: [Polyneuropathy, unspecified] Onset: 04-24-2024 04-24-2024 Chronic Other nervous system disorders (3 sources) Small fiber neuropathy; Translations: [Polyneuropathy, unspecified] Onset: 04-24-2024 04-24-2024 Chronic Other nervous system disorders (3 sources) Polyneuropathy; Translations: [Polyneuropathy, unspecified] Onset: 04-24-2024 04-24-2024 Chronic Other non-traumatic joint disorders (2 sources) Knee pain; Translations: [Postoperative pain of left knee] Episodic Other non-traumatic joint disorders (2 sources) Pain in right hip; Translations: [Right hip pain] Episodic Other non-traumatic joint disorders (10 sources) Pain in right knee; Translations: [Pain in right knee] Onset: 04-19-2024 Episodic Other non-traumatic joint disorders (1 source) [...] Translations: [Obesity (BMI 30.0-34.9)] Onset: 2017 11-21-2018 Peripheral and visceral atherosclerosis (3 sources) Peripheral vascular disease; Translations: [Peripheral vascular disease, unspecified] Onset: 04-24-2024 04-24-2024 Chronic Retinal detachments; defects; vascular occlusion; and retinopathy (3 sources) Nonexudative age-related macular degeneration; Translations: [Nonexudative age-related macular degeneration, bilateral, intermediate dry stage] Onset: 07-13-2023 07-13-2023 Chronic Rheumatoid arthritis and related disease (20 sources) Rheumatoid arthritis; Translations: [Rheumatoid arthritis, unspecified] Onset: 2017 2017 Chronic Skin and subcutaneous tissue infections (18 sources) Cellulitis of left axilla; Translations: [Cellulitis of left axilla] Onset: 04-20-2023 04-20-2023 Episodic Spondylosis; intervertebral disc disorders; other back problems (17 sources) Lumbar spondylosis; Translations: [Spondylosis without myelopathy or radiculopathy, lumbar region] Onset: 08-31-2021 Resolved: 08-31-2021 Chronic Systemic lupus erythematosus and connective tissue disorders (20 sources) Systemic involvement of connective tissue, unspecified; 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] Onset: 02-08-2023 Chronic Thyroid disorders (16 sources) Hyperthyroidism; Translations: [Thyrotoxicosis, unspecified without thyrotoxic crisis or storm] Onset: 04-20-2023 04-20-2023 Chronic Unclassified (2 sources) Preprocedural examination done; Translations: [Pre-op exam] Unclassified (1 source) History of left total knee replacement; Translations: [Hx of total knee arthroplasty, left] Unclassified (1 source) Decreased white blood cell count, unspecified; Translations: [Decreased white blood cell count, unspecified] Onset: 05-07-2021 Urinary tract infections (16 sources) Chronic cystitis; Translations: [Other chronic cystitis without hematuria] Onset: 04-20-2023 04-20-2023 Chronic Past or Other Problems Problem Classification Problem Date Documented Da te Episodic/Chronic Complication of device; implant or graft (2 sources) Other mechanical complication of internal left knee prosthesis, initial encounter; Translations: [Other mechanical complication of internal left knee prosthesis, initial encounter] Onset: 11-29-2023 Episodic Conditions associated with dizziness or vertigo (3 sources) Dizziness; Translations: [Dizziness and giddiness] Onset: 04-24-2024 04-24-2024 Episodic Deficiency and other anemia (1 source) Anemia, unspecified; Translations: [ANEMIA UNSPECIFIED] Onset: 10-26-2022 Episodic Deficiency and other anemia (1 source) Iron deficiency anemia, unspecified; Translations: [Iron deficiency anemia, unspecified] Onset: 05-07-2021 Episodic Diabetes mellitus without complication (1 source) Other abnormal glucose; Translations: [OTHER ABNORMAL GLUCOSE] Onset: 10-26-2022 Episodic Inflammation; infection of eye (except that caused by tuberculosis or sexually transmitteddisease) (3 sources) 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; Translations: [Unspecified blepharitis right eye, upper and lower eyelids] Onset: 07-13-2023 07-13-2023 Episodic Medical examination/evaluation (2 sources) Encounter for other preprocedural examination; Translations: [Encounter for other preprocedural examination] Onset: 07-01-2017 Episodic Other acquired deformities (3 sources) Spondylolisthesis; Translations: [Spondylolisthesis, site unspecified] Onset: 04-24-2024 04-24-2024 Episodic Other bone disease and musculoskeletal deformities (1 source) Other specified disorders of bone density and structure, unspecified site; Translations: [OTH D/O BONE DEN STRUCT UNS SITE] Onset: 09-01-2022 Episodic Other bone disease and musculoskeletal deformities (3 sources) Osteopenia; Translations: [Other specified disorders of bone density and structure, unspecified site] Onset: 04-24-2024 04-24-2024 Episodic Other circulatory disease (1 source) Decreased breath sounds; Translations: [Decreased breath sounds] Episodic Other connective tissue disease (20 sources) Rupture of patellar tendon; Translations: [Patellar tendon rupture] Onset: 2017 2017 Episodic Other connective tissue disease (20 sources) Synovial hernia; Translations: [Other specified disorders of synovium and tendon, unspecified site] Onset: 11-21-2018 11-21-2018 Episodic Other connective tissue disease (3 sources) Fibromyalgia; Translations: [Fibromyalgia] Onset: 04-24-2024 04-24-2024 Episodic Other connective tissue disease (3 sources) Weakness of face muscles; Translations: [Facial weakness] Onset: 04-24-2024 04-24-2024 Episodic Other connective tissue disease (3 sources) Spasm; Translations: [Other muscle spasm] Onset: 04-24-2024 04-24-2024 Episodic Other eye disorders (3 sources) Dry eyes; Translations: [Dry eye syndrome of bilateral lacrimal glands] Onset: 07-13-2023 07-13-2023 Episodic Other nervous system disorders (2 sources) Other acute postprocedural pain; Translations: [Other acute postprocedural pain] Onset: 11-29-2023 Episodic Other nervous system disorders (3 sources) Trigeminal neuralgia; Translations: [Trigeminal neuralgia] Onset: 04-24-2024 04-24-2024 Episodic Other nervous system disorders (3 sources) Hemifacial spasm; Translations: [Clonic hemifacial spasm, unspecified] Onset: 04-24-2024 04-24-2024 Episodic Other nervous system disorders (3 sources) Skin sensation disturbance; Translations: [Unspecified disturbances of skin sensation] Onset: 04-24-2024 04-24-2024 Episodic Other nervous system disorders (3 sources) Paresthesia; Translations: [Paresthesia of skin] Onset: 04-24-2024 04-24-2024 Episodic Other non-traumatic joint disorders (20 sources) Pain in left knee; Translations: [Pain in left knee] Onset: 11-21-2018 11-21-2018 Episodic Other screening for suspected conditions (not mental disorders or infectious disease) (11 sources) Encounter for screening for malignant neoplasm of colon; Translations: [Encounter for screening mammogram for malignant neoplasm of breast] Onset: 08-31-2022 Episodic Residual codes; unclassified (1 source) Family history of malignant neoplasm of digestive organs; Translations: [FAM HX MALIG NEOPLASM DIGESTIV ORGN] Onset: 09-05-2022 Episodic Residual codes; unclassified (1 source) Family history of malignant neoplasm of other organs or systems; Translations: [FAM HX MALIG NEOPLASM OTH ORGN/SYS] Onset: 09-05-2022 Episodic Spondylosis; intervertebral disc disorders; other back problems (20 sources) Sciatica; Translations: [Sciatica, left side] Onset: 08-31-2021 Resolved: 08-31-2021 Episodic Sprains and strains (20 sources) Strain of other muscle(s) and tendon(s) at lower leg level, unspecified leg, subsequent encounter; Translations: [Rupture of patellar tendon] Onset: 07-18-2017 2017 Episodic Unclassified (12 sources) Onset: 11-24-2018 Resolved: 12-02-2023 11-24-2018 Results Test Name Value Interpretation Reference Range Facility AFB SMEARon 01-14-2024 ACID FAST CULTURE Negative Normal [facility] Comment on above: Result Comment: No a ramesh fast bacilli isolated after 6 weeks. PERFORMED AT [facility] Performed By: #### A CBC, CMPF, PT #### Testing performed at [facility] [address] [place] [address] *RFLX-FUNGUSon 12-29-2023 RESULT 1 Comment [facility] Comment on above: Result Comment: No y east or mold isolated after 4 weeks. PERFORMED AT [facility] Performed By: #### Z CHARLEY OCOPER #### Testing performed at [facility] [address] [place] [address] [place] [address] [address]ULT [address] [facility] Comment on above: Result Comment: No y east or mold isolated after 4 weeks. PERFORMED AT [facility] Performed By: #### A CBC, CMPF, PT #### Testing performed at [address] [address] FUNGUS CULTUREon 12-29-2023 FUNGUS CULTURE Final report Normal [facility] Comment on above: Result Comment: PERF ORMED AT [facility] Performed By: #### Z KENNETH LFUNGC #### Testing performed at [facility] [address] [place] [address] [place] [address] Performed By: #### A CBC, CMPF, PT #### Testing performed at [address] [address] CBCon 12-02-2023 ABSOLUTE BAS 0.0 10*3/uL Normal 0.0-0.2 [facility] Comment on above: Performed By: #### A CBC, CMPF, PT #### Testing performed at [address] [place] [address] ABSOLUTE EOS 0.0 10*3/uL Normal 0.0-0.7 [facility] Comment on above: Performed By: #### A CBC, CMPF, PT #### Testing performed at [address] [place] [address] ABSOLUTE NEUTROPHIL COUNT 2.4 10*3/uL Normal 1.4-6.5 [facility] Comment on above: Performed By: #### A CBC, CMPF, PT #### Testing performed at [address] [place] [address] Basophils/100 WBC (Bld) 0.3 % Normal 0.0-2.0 [facility] Comment on above: Performed By: #### A CBC, CMPF, PT #### Testing performed at [address] [place] [address] DTYPE AUTO DIFF Normal [facility] Comment on above: Performed By: #### A CBC, CMPF, PT #### Testing performed at [address] [address] Eosinophils/100 WBC (Bld) 0.9 % Normal 0.0-11.0 [facility] Comment on above: Performed By: #### A CBC, CMPF, PT #### Testing performed at [address] [address] Lymphocytes (Bld) [#/Vol] 0.6 10*3/uL Low 1.2-3.4 [facility] Comment on above: Performed By: #### A CBC, CMPF, PT #### Testing performed at [address] [address] Lymphocytes/100 WBC (Bld) 17.6 % Low 20.0-55.0 [facility] Comment on above: Performed By: #### A CBC, CMPF, PT #### Testing performed at [address] [address] Monocytes (Bld) [#/Vol] 0.5 10*3/uL Normal 0.0-0.7 [facility] Comment on above: Performed By: #### A CBC, CMPF, PT #### Testing performed at [address] [address] Monocytes/100 WBC (Bld) 14.6 % High 0.0-10.0 [facility] Comment on above: Performed By: #### A CBC, CMPF, PT #### Testing performed at [address] [address] Neutrophils/100 WBC (Bld) 66.6 % Normal 37.0-75.0 [facility] Comment on above: Performed By: #### A CBC, CMPF, PT #### Testing performed at [address] [address] Erythrocyte distribution width (RBC) [Ratio] 14.2 % Normal 11.5-14.5 [facility] Comment on above: Performed By: #### A CBC, CMPF, PT #### Testing performed at [address] [address] Hematocrit (Bld) [Volume fraction] 27.6 % Low 36.0-48.0 [facility] Comment on above: Performed By: #### A CBC, CMPF, PT #### Testing performed at [address] [address] Hemoglobin (Bld) [Mass/Vol] 9.2 g/dL Low 12.0-16.0 [facility] Comment on above: Performed By: #### A CBC, CMPF, PT #### Testing performed at [address] [address] MCH (RBC) [Entitic mass] 34.3 pg Normal 26.0-35.0 [facility] Comment on above: Performed By: #### A CBC, CMPF, PT #### Testing performed at [address] [address] MCHC (RBC) [Mass/Vol] 33.4 g/dL Normal 27.0-37.0 [facility] Comment on above: Performed By: #### A CBC, CMPF, PT #### Testing performed at [address] [address] MCV (RBC) [Entitic vol] 102.5 fL High 80.0-100.0 [facility] Comment on above: Performed By: #### A CBC, CMPF, PT #### Testing performed at [address] [address] Platelet mean volume (Bld) [Entitic vol] 7.3 fL Low 7.4-11.0 [facility] Comment on above: Performed By: #### A CBC, CMPF, PT #### Testing performed at [address] [address] Platelets (Bld) [#/Vol] 165 10*3/uL Normal 130-400 [facility] Comment on above: Performed By: #### A CBC, CMPF, PT #### Testing performed at [address] [address] RBC (Bld) [#/Vol] 2.69 10*6/uL Low 4.0-5.4 [facility] Comment on above: Performed By: #### A CBC, CMPF, PT #### Testing performed at [address] [address] WBC (Bld) [#/Vol] 3.6 10*3/uL Normal 3.6-11.0 [facility] Comment on above: Performed By: #### A CBC, CMPF, PT #### Testing performed at [address] [address] AFB SMEARon 12-01-2023 ACID FAST SMEAR Negative Normal [facility] Comment on above: Result Comment: PERF [facility] AT [facility] Performed By: #### A CBC, CMPF, PT #### Testing performed at [address] [address] BMP FASTINGon 12-01-2023 Anion gap [Moles/Vol] 7 mmol/L Normal [facility] Comment on above: Performed By: #### B MPF, ACBC #### Testing performed at [address] [address] Calcium [Mass/Vol] 8.4 mg/dL Normal 8.4-10.2 [facility] Comment on above: Performed By: #### B MPF, ACBC #### Testing performed at [address] [address] Chloride [Moles/Vol] 106 mmol/L Normal 98-107 [facility] Comment on above: Result Comment: Plea note: Triglyceride levels of 600mg/dL or higher may positively bias chloride results by approximately 2.1 mmol Performed By: #### B MPF, ACBC #### Testing performed at [address] [address] CO2 [Moles/Vol] 23 mmol/L Normal 22-30 [facility] Comment on above: Performed By: #### B MPF, ACBC #### Testing performed at [address] [address] Creatinine [Mass/Vol] 0.50 mg/dL Low 0.70-1.20 [facility] Comment on above: Performed By: #### B MPF, ACBC #### Testing performed at [address] [address] EST. GFR, 157 ml/min/1.73sq.m Normal [facility] Comment on above: Performed By: #### B MPF, ACBC #### Testing performed at [address] [address] EST. GFR,Non 130 ml/min/1.73sq.m Normal [facility] Comment on above: Performed By: #### B HERMELINDO RONQUILLO #### Testing performed at [address] [address] GFR Information Average GFR for 70+ years old = 75. Normal 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 Kidney failure, GFR = <15. The GFR estimate is not adjusted for extreme body surface area or acute process, nor has it been validated for women or ethnic groups other than and . Performed By: #### B HERMELINDO RONQUILLO #### Testing performed at [address] [address] Glucose [Mass/Vol] 125 mg/dL High 70-100 [facility] Comment on above: Result Comment: NORMAL <100 mg/dL PREDIABETES 101-126 mg/dL DIABETES 126 mg/dL or higher Performed By: #### B HERMELINDO RONQUILLO #### Testing performed at [address] [address] Potassium [Moles/Vol] 3.4 mmol/L Low 3.5-5.1 [facility] Comment on above: Performed By: #### B HERMELINDO RONQUILLO #### Testing performed at [address] [address] Sodium [Moles/Vol] 136 mmol/L Low 137-145 [facility] Comment on above: Performed By: #### B HERMELINDO RONQUILLO #### Testing performed at [address] [address] Urea nitrogen [Mass/Vol] 15 mg/dL Normal 7-20 [facility] Comment on above: Performed By: #### B HERMELINDO RONQUILLO #### Testing performed at [address] [address] CBCon 12-01-2023 ABSOLUTE BAS 0.0 10*3/uL Normal 0.0-0.2 [facility] Comment on above: Performed By: #### B MPF, ACBC #### Testing performed at [address] [place] [address] ABSOLUTE EOS 0.0 10*3/uL Normal 0.0-0.7 [facility] Comment on above: Performed By: #### B MPF, ACBC #### Testing performed at [address] [place] [address] ABSOLUTE NEUTROPHIL COUNT 4.1 10*3/uL Normal 1.4-6.5 [facility] Comment on above: Performed By: #### B MPF, ACBC #### Testing performed at [address] [address] Basophils/100 WBC (Bld) 0.1 % Normal 0.0-2.0 [facility] Comment on above: Performed By: #### B MPF, ACBC #### Testing performed at [address] [address] DTYPE AUTO DIFF Normal [facility] Comment on above: Performed By: #### B MPF, ACBC #### Testing performed at [address] [address] Eosinophils/100 WBC (Bld) 0.0 % Normal 0.0-11.0 [facility] Comment on above: Performed By: #### B MPF, ACBC #### Testing performed at [address] [place] [address] Erythrocyte distribution width (RBC) [Ratio] 14.3 % Normal 11.5-14.5 [facility] Comment on above: Performed By: #### B MPF, ACBC #### Testing performed at [address] [place] [address] Hematocrit (Bld) [Volume fraction] 30.1 % Low 36.0-48.0 [facility] Comment on above: Performed By: #### B MPF, ACBC #### Testing performed at [address] [address] Hemoglobin (Bld) [Mass/Vol] 10.3 g/dL Low 12.0-16.0 [facility] Comment on above: Performed By: #### B MPF, ACBC #### Testing performed at [address] [place] [address] Lymphocytes (Bld) [#/Vol] 0.4 10*3/uL Low 1.2-3.4 [facility] Comment on above: Performed By: #### B MPF, ACBC #### Testing performed at [address] [place] [address] Lymphocytes/100 WBC (Bld) 8.1 % Low 20.0-55.0 [facility] Comment on above: Performed By: #### B MPF, ACBC #### Testing performed at [address] [place] [address] MCH (RBC) [Entitic mass] 34.6 pg Normal 26.0-35.0 [facility] Comment on above: Performed By: #### B MPF, ACBC #### Testing performed at [address] [place] [address] MCHC (RBC) [Mass/Vol] 34.2 g/dL Normal 27.0-37.0 [facility] Comment on above: Performed By: #### B MPF, ACBC #### Testing performed at [address] [place] [address] MCV (RBC) [Entitic vol] 101.3 fL High 80.0-100.0 [facility] Comment on above: Performed By: #### B MPF, ACBC #### Testing performed at [address] [address] Monocytes (Bld) [#/Vol] 0.4 10*3/uL Normal 0.0-0.7 [facility] Comment on above: Performed By: #### B MPF, ACBC #### Testing performed at [address] [place] [address] Monocytes/100 WBC (Bld) 8.1 % Normal 0.0-10.0 [facility] Comment on above: Performed By: #### B MPF, ACBC #### Testing performed at [address] [place] [address] Neutrophils/100 WBC (Bld) 83.7 % High 37.0-75.0 [facility] Comment on above: Performed By: #### B MPF, ACBC #### Testing performed at [address] [address] Platelet mean volume (Bld) [Entitic vol] 7.3 fL Low 7.4-11.0 [facility] Comment on above: Performed By: #### B MPF, ACBC #### Testing performed at [address] [address] Platelets (Bld) [#/Vol] 181 10*3/uL Normal 130-400 [facility] Comment on above: Performed By: #### B MPF, ACBC #### Testing performed at [address] [address] RBC (Bld) [#/Vol] 2.97 10*6/uL Low 4.0-5.4 [facility] Comment on above: Performed By: #### B MPF, ACBC #### Testing performed at [address] [address] WBC (Bld) [#/Vol] 4.9 10*3/uL Normal 3.6-11.0 [facility] Comment on above: Performed By: #### B MPF, ACBC #### Testing performed at [address] [address] BMP FASTINGon 11-30-2023 Anion gap [Moles/Vol] 3 mmol/L Normal [facility] Comment on above: Performed By: #### A CBC, CMPF, PT #### Testing performed at [address] [address] Calcium [Mass/Vol] 7.7 mg/dL Low 8.4-10.2 [facility] Comment on above: Performed By: #### A CBC, CMPF, PT #### Testing performed at [address] [address] Chloride [Moles/Vol] 106 mmol/L Normal 98-107 [facility] Comment on above: Result Comment: Sriarm arriaga note: Triglyceride levels of 600mg/dL or higher may positively bias chloride results by approximately 2.1 mmol Performed By: #### A CBC, CMPF, PT #### Testing performed at [address] [place] [address] CO2 [Moles/Vol] 24 mmol/L Normal 22-30 [facility] Comment on above: Performed By: #### A CBC, CMPF, PT #### Testing performed at [address] [address] Creatinine [Mass/Vol] 0.60 mg/dL Low 0.70-1.20 [facility] Comment on above: Performed By: #### A CBC, CMPF, PT #### Testing performed at [address] [address] EST. GFR, 127 ml/min/1.73sq.m [facility] Comment on above: Performed By: #### A CBC, CMPF, PT #### Testing performed at [address] [address] EST. GFR,Non 105 ml/min/1.73sq.m [facility] Comment on above: Performed By: #### A CBC, CMPF, PT #### Testing performed at [address] [address] GFR Information Average GFR for 70+ years old = 75. Normal 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 Kidney failure, GFR = <15. The GFR estimate is not adjusted for extreme body surface area or acute process, nor has it been validated for women or ethnic groups other than and . Performed By: #### A CBC, CMPF, PT #### Testing performed at [address] [address] Glucose [Mass/Vol] 111 mg/dL High 70-100 [facility] Comment on above: Result Comment: NORMAL <100 mg/dL PREDIABETES 101-126 mg/dL DIABETES 126 mg/dL or higher Performed By: #### A CBC, CMPF, PT #### Testing performed at [address] [address] Potassium [Moles/Vol] 3.6 mmol/L Normal 3.5-5.1 [facility] Comment on above: Performed By: #### A CBC, CMPF, PT #### Testing performed at [address] [address] Sodium [Moles/Vol] 133 mmol/L Low 137-145 [facility] Comment on above: Performed By: #### A CBC, CMPF, PT #### Testing performed at [address] [address] Urea nitrogen [Mass/Vol] 12 mg/dL Normal 7-20 [facility] Comment on above: Performed By: #### A CBC, CMPF, PT #### Testing performed at [address] [address] CBCon 11-30-2023 ABSOLUTE BAS 0.0 10*3/uL Normal 0.0-0.2 [facility] Comment on above: Performed By: #### A CBC, CMPF, PT #### Testing performed at [address] [address] ABSOLUTE EOS 0.0 10*3/uL Normal 0.0-0.7 [facility] Comment on above: Performed By: #### A CBC, CMPF, PT #### Testing performed at [address] [address] ABSOLUTE NEUTROPHIL COUNT 4.6 10*3/uL Normal 1.4-6.5 [facility] Comment on above: Performed By: #### A CBC, CMPF, PT #### Testing performed at [address] [address] Basophils/100 WBC (Bld) 0.0 % Normal 0.0-2.0 [facility] Comment on above: Performed By: #### A CBC, CMPF, PT #### Testing performed at [address] [address] DTYPE AUTO DIFF Normal [facility] Comment on above: Performed By: #### A CBC, CMPF, PT #### Testing performed at [address] [address] Eosinophils/100 WBC (Bld) 0.0 % Normal 0.0-11.0 [facility] Comment on above: Performed By: #### A CBC, CMPF, PT #### Testing performed at [facility] [place] [facility] [address] [address] Lymphocytes (Bld) [#/Vol] 0.4 10*3/uL Low 1.2-3.4 [facility] Comment on above: Performed By: #### A CBC, CMPF, PT #### Testing performed at [address] [address] Lymphocytes/100 WBC (Bld) 7.5 % Low 20.0-55.0 [facility] Comment on above: Performed By: #### A CBC, CMPF, PT #### Testing performed at [address] [address] Monocytes (Bld) [#/Vol] 0.4 10*3/uL Normal 0.0-0.7 [facility] Comment on above: Performed By: #### A CBC, CMPF, PT #### Testing performed at [address] [address] Monocytes/100 WBC (Bld) 7.3 % Normal 0.0-10.0 [facility] Comment on above: Performed By: #### A CBC, CMPF, PT #### Testing performed at [address] [address] Neutrophils/100 WBC (Bld) 85.2 % High 37.0-75.0 [facility] Comment on above: Performed By: #### A CBC, CMPF, PT #### Testing performed at [address] [address] Erythrocyte distribution width (RBC) [Ratio] 14.2 % Normal 11.5-14.5 [facility] Comment on above: Performed By: #### A CBC, CMPF, PT #### Testing performed at [address] [place] [address] Hematocrit (Bld) [Volume fraction] 30.2 % Low 36.0-48.0 [facility] Comment on above: Performed By: #### A CBC, CMPF, PT #### Testing performed at [address] [address] Hemoglobin (Bld) [Mass/Vol] 10.2 g/dL Low 12.0-16.0 [facility] Comment on above: Performed By: #### A CBC, CMPF, PT #### Testing performed at [address] [address] MCH (RBC) [Entitic mass] 34.1 pg Normal 26.0-35.0 [facility] Comment on above: Performed By: #### A CBC, CMPF, PT #### Testing performed at [address] [address] MCHC (RBC) [Mass/Vol] 33.7 g/dL Normal 27.0-37.0 [facility] Comment on above: Performed By: #### A CBC, CMPF, PT #### Testing performed at [address] [address] MCV (RBC) [Entitic vol] 101.3 fL High 80.0-100.0 [facility] Comment on above: Performed By: #### A CBC, CMPF, PT #### Testing performed at [address] [address] Platelet mean volume (Bld) [Entitic vol] 7.3 fL Low 7.4-11.0 [facility] Comment on above: Performed By: #### A CBC, CMPF, PT #### Testing performed at [address] [address] Platelets (Bld) [#/Vol] 180 10*3/uL Normal 130-400 [facility] Comment on above: Performed By: #### A CBC, CMPF, PT #### Testing performed at [address] [address] RBC (Bld) [#/Vol] 2.99 10*6/uL Low 4.0-5.4 [facility] Comment on above: Performed By: #### A CBC, CMPF, PT #### Testing performed at [address] [address] WBC (Bld) [#/Vol] 5.4 10*3/uL Normal 3.6-11.0 [facility] Comment on above: Performed By: #### A CBC, CMPF, PT #### Testing performed at [address] [address] ANAEROBIC CULTUREon 11-29-19 ANAEROBIC CULTURE SPECIMEN DESCRIPTION LEFT KNEE CULTURE NO GROWTH 5 DAYS * Result Note: Testing performed at [place] [address] * REPORT STATUS 12/04/2023 * Result Note: FINAL * Normal [facility] Comment on above: Performed By: #### A CBC, CMPF, PT #### Testing performed at [address] [address] TISSUE CULTUREon 11-29-2023 TISSUE CULTURE SPECIMEN DESCRIPTION LEFT KNEE GRAM SMEAR NO * Result Note: WBC'S SEEN * * Result Note: NO ORGANISMS SEEN * CULTURE NO GROWTH 5 DAYS * Result Note: Testing performed at [place] [address] * REPORT STATUS 12/04/2023 * Result Note: FINAL * Normal [facility] Comment on above: Performed By: #### A CBC, CMPF, PT #### [place] [address] TYPE AND SCREEN CROSSMATCH C ONVERTIBLEon 11-29-2023 TYPE AND SCREEN CROSSMATCH CONVERTIBLE UNITS ORDERED 2 WORKUP EXPIRES 12/02/2023,2359 ABO/RH(D) O POSITIVE ANTIBODY SCREEN NEGATIVE ARM BAND NUMBER [id number] UNIT NUMBER [id number] BLOOD COMPONENT TYPE LEUKORED RBC UNIT DIVISION 00 STATUS OF UNIT REL FROM ALLOC TRANSFUSION STATUS OK TO TRANSFUSE CROSSMATCH RESULT Electronically Compatible UNIT NUMBER [id number] BLOOD COMPONENT TYPE LEUKORED RBC UNIT DIVISION 00 STATUS OF UNIT REL FROM ALLOC TRANSFUSION STATUS OK TO TRANSFUSE CROSSMATCH RESULT Electronically Compatible [facility] Comment on above: Performed By: #### A CBC, CMPF, PT #### Testing performed at [address] [address] WOUND CULTUREon 11-29-2023 WOUND CULTURE SPECIMEN DESCRIPTION LEFT KNEE GRAM SMEAR NO * Result Note: WBC'S SEEN * * Result Note: NO ORGANISMS SEEN * CULTURE NO GROWTH 5 DAYS * Result Note: Testing performed at [place] [id number] * REPORT STATUS 12/04/2023 * Result Note: FINAL * [facility] Comment on above: Performed By: #### A CBC, CMPF, PT #### Testing performed at [address] [address] XR KNEE LEFT 1-2 VIEWSon XR KNEE [...] other acute bony abnormality is seen. Normal [facility] CBCon 11-03-2023 ABSOLUTE BAS 0.0 10*3/uL Normal 0.0-0.2 [facility] Comment on above: Performed By: #### A CBC, CMPF, PT #### Testing performed at [address] [address] ABSOLUTE EOS 0.1 10*3/uL Normal 0.0-0.7 [facility] Comment on above: Performed By: #### A CBC, CMPF, PT #### Testing performed at [address] [address] ABSOLUTE NEUTROPHIL COUNT 2.6 10*3/uL Normal 1.4-6.5 [facility] Comment on above: Performed By: #### A CBC, CMPF, PT #### Testing performed at [address] [address] Basophils/100 WBC (Bld) 0.3 % Normal 0.0-2.0 [facility] Comment on above: Performed By: #### A CBC, CMPF, PT #### Testing performed at [address] [address] DTYPE AUTO DIFF Normal [facility] Comment on above: Performed By: #### A CBC, CMPF, PT #### Testing performed at [address] [address] Eosinophils/100 WBC (Bld) 1.8 % Normal 0.0-11.0 [facility] Comment on above: Performed By: #### A CBC, CMPF, PT #### Testing performed at [address] [address] Lymphocytes (Bld) [#/Vol] 0.4 10*3/uL Low 1.2-3.4 [facility] Comment on above: Performed By: #### A CBC, CMPF, PT #### Testing performed at [address] [address] Lymphocytes/100 WBC (Bld) 11.1 % Low 20.0-55.0 [facility] Comment on above: Performed By: #### A CBC, CMPF, PT #### Testing performed at [address] [address] Monocytes (Bld) [#/Vol] 0.4 10*3/uL Normal 0.0-0.7 [facility] Comment on above: Performed By: #### A CBC, CMPF, PT #### Testing performed at [address] [address] Monocytes/100 WBC (Bld) 11.1 % High 0.0-10.0 [facility] Comment on above: Performed By: #### A CBC, CMPF, PT #### Testing performed at [address] [address] Neutrophils/100 WBC (Bld) 75.7 % High 37.0-75.0 [facility] Comment on above: Performed By: #### A CBC, CMPF, PT #### Testing performed at [address] [address] Erythrocyte distribution width (RBC) [Ratio] 14.5 % Normal 11.5-14.5 [facility] Comment on above: Performed By: #### A CBC, CMPF, PT #### Testing performed at [address] [address] Hematocrit (Bld) [Volume fraction] 34.7 % Low 36.0-48.0 [facility] Comment on above: Performed By: #### A CBC, CMPF, PT #### Testing performed at [address] [address] Hemoglobin (Bld) [Mass/Vol] 11.3 g/dL Low 12.0-16.0 [facility] Comment on above: Performed By: #### A CBC, CMPF, PT #### Testing performed at [address] [address] MCH (RBC) [Entitic mass] 33.4 pg Normal 26.0-35.0 [facility] Comment on above: Performed By: #### A CBC, CMPF, PT #### Testing performed at [address] [address] MCHC (RBC) [Mass/Vol] 32.4 g/dL Normal 27.0-37.0 [facility] Comment on above: Performed By: #### A CBC, CMPF, PT #### Testing performed at [address] [address] MCV (RBC) [Entitic vol] 103.1 fL High 80.0-100.0 [facility] Comment on above: Performed By: #### A CBC, CMPF, PT #### Testing performed at [address] [address] Platelet mean volume (Bld) [Entitic vol] 7.2 fL Low 7.4-11.0 [facility] Comment on above: Performed By: #### A CBC, CMPF, PT #### Testing performed at [address] [address] Platelets (Bld) [#/Vol] 175 10*3/uL Normal 130-400 [facility] Comment on above: Performed By: #### A CBC, CMPF, PT #### Testing performed at [address] [address] RBC (Bld) [#/Vol] 3.37 10*6/uL Low 4.0-5.4 [facility] Comment on above: Performed By: #### A CBC, CMPF, PT #### Testing performed at [address] [address] WBC (Bld) [#/Vol] 3.5 10*3/uL Low 3.6-11.0 [facility] Comment on above: Performed By: #### A CBC, CMPF, PT #### Testing performed at [address] [address] CBC, EDIF, PLATELETon 2022 ABSOLUTE BASOPHIL COUNT 0.0 10*3/uL 0.0 - 0.2 10*3/uL [facility] Basophils/100 WBC (Bld) 0.3 % 0.0 - 2.0 % [facility] Differential cell count method Nom (Bld) AUTO DIFF % [facility] Eosinophils (Bld) [#/Vol] 0.1 10*3/uL 0.0 - 0.7 10*3/uL [facility] Eosinophils/100 WBC (Bld) 1.8 % 0.0 - 11.0 % [facility] Erythrocyte distribution width (RBC) [Ratio] 14.5 % 11.5 - 14.5 % [facility] Hematocrit (Bld) [Volume fraction] 34.7 % Low 36.0 - 48.0 % [facility] Hemoglobin (Bld) [Mass/Vol] 11.3 g/dL Low [facility] Interpretation and review of laboratory results Abnormal [facility] Lymphocytes (Bld) [#/Vol] 0.4 10*3/uL Low 1.2 - 3.4 10*3/uL [facility] Lymphocytes/100 WBC (Bld) 11.1 % Low 20.0 - 55.0 % [facility] MCH (RBC) [Entitic mass] 33.4 pg 26.0 - 35.0 PG [facility] MCHC (RBC) [Mass/Vol] 32.4 g/dL [facility] MCV (RBC) [Entitic vol] 103.1 fL High [facility] Monocytes (Bld) [#/Vol] 0.4 10*3/uL 0.0 - 0.7 10*3/uL [facility] Monocytes/100 WBC (Bld) 11.1 % High 0.0 - 10.0 % [facility] Neutrophils (Bld) [#/Vol] 2.6 10*3/uL 1.4 - 6.5 10*3/uL [facility] Neutrophils/100 WBC (Bld) 75.7 % High 37.0 - 75.0 % [facility] Platelet mean volume (Bld) [Entitic vol] 7.2 fL Low [facility] Platelets (Bld) [#/Vol] 175 10*3/uL 130 - 400 10*3/uL [facility] RBC (Bld) [#/Vol] 3.37 10*6/uL Low 4.0 - 5.4 10*6/uL [facility] WBC (Bld) [#/Vol] 3.5 10*3/uL Low 3.6 - 11.0 10*3/uL [facility] CMP FASTINGon 11-03-2023 A:G RATIO 1.[address] [facility] Comment on above: Performed By: #### A CBC, CMPF, PT #### Testing performed at [address] [address] ALBUMIN 3.8 G/dl Normal 3.5-5.0 [facility] Comment on above: Performed By: #### A CBC, CMPF, PT #### Testing performed at [address] [address] ALP [Catalytic activity/Vol] 61 U/L Normal 38-126 [facility] Comment on above: Performed By: #### A CBC, CMPF, PT #### Testing performed at [address] [address] ALT [Catalytic activity/Vol] 26 U/L Normal <35 [facility] Comment on above: Performed By: #### A CBC, CMPF, PT #### Testing performed at [address] [address] AST [Catalytic activity/Vol] 36 U/L Normal 14-36 [facility] Comment on above: Performed By: #### A CBC, CMPF, PT #### Testing performed at [address] [address] Bilirubin [Mass/Vol] 0.7 mg/dL Normal 0.2-1.3 [facility] Comment on above: Performed By: #### A CBC, CMPF, PT #### Testing performed at [address] [address] Calcium [Mass/Vol] 9.4 mg/dL Normal 8.4-10.2 [facility] Comment on above: Performed By: #### A CBC, CMPF, PT #### Testing performed at [address] [address] Chloride [Moles/Vol] 104 mmol/L Normal 98-107 [facility] Comment on above: Result Comment: Sriram arriaga note: Triglyceride levels of 600mg/dL or higher may positively bias chloride results by approximately 2.1 mmol Performed By: #### A CBC, CMPF, PT #### [place] [address] CO2 [Moles/Vol] 28 mmol/L Normal 22-30 [facility] Comment on above: Performed By: #### A CBC, CMPF, PT #### Testing performed at [place] [id number] Creatinine [Mass/Vol] 0.60 mg/dL Low 0.70-1.20 [facility] Comment on above: Performed By: #### A CBC, CMPF, PT #### Testing performed at [place] [id number] EST. GFR, 127 ml/min/1.73sq.m [facility] Comment on above: Performed By: #### A CBC, CMPF, PT #### Testing performed at [place] [id number] EST. GFR,Non 105 ml/min/1.73sq.m [facility] Comment on above: Performed By: #### A CBC, CMPF, PT #### [place] [address] GFR Information Average GFR for 70+ years old = 75. Normal 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 Kidney failure, GFR = <15. The GFR estimate is not adjusted for extreme body surface area or acute process, nor has it been validated for women or ethnic groups other than and . Performed By: #### A CBC, CMPF, PT #### Testing performed at [place] [id number] Glucose [Mass/Vol] 91 mg/dL Normal 70-100 [facility] Comment on above: Result Comment: NORMAL <100 mg/dL PREDIABETES 101-126 mg/dL DIABETES 126 mg/dL or higher Performed By: #### A CBC, CMPF, PT #### Testing performed at [address] [address] Potassium [Moles/Vol] 3.9 mmol/L Normal 3.5-5.1 [facility] Comment on above: Performed By: #### A CBC, CMPF, PT #### Testing performed at [address] [address] Protein [Mass/Vol] 6.1 g/dL Low 6.3-8.2 [facility] Comment on above: Performed By: #### A CBC, CMPF, PT #### Testing performed at [address] [address] Sodium [Moles/Vol] 135 mmol/L Low 137-145 [facility] Comment on above: Performed By: #### A CBC, CMPF, PT #### Testing performed at [address] [address] Urea nitrogen [Mass/Vol] 12 mg/dL Normal 7-20 [facility] Comment on above: Performed By: #### A CBC, CMPF, PT #### Testing performed at [address] [address] COMPREHENSIVE METABOLIC PANE Adolph 11-03-2023 Albumin [Mass/Vol] 3.8 G/dl 3.5 - 5.0 G/dl [facility] Albumin/Globulin [Mass ratio] 1.7 {ratio} RATIO [facility] ALP [Catalytic activity/Vol] 61 U/L [facility] ALT [Catalytic activity/Vol] 26 U/L NINF [facility] AST [Catalytic activity/Vol] 36 U/L [facility] Bilirubin [Mass/Vol] 0.7 mg/dL [facility] Calcium [Mass/Vol] 9.4 mg/dL [facility] Chloride [Moles/Vol] 104 mmol/L [facility] Comment on above: Please note: Triglyc eride levels of 600mg/dL or higher may positively bias chloride results by approximately 2.1 mmol CO2 [Moles/Vol] 28 mmol/L [facility] Creatinine [Mass/Vol] 0.60 mg/dL Low [facility] GFR COMMENT Average GFR for 70+ years old = 75. [facility] Comment on above: Chronic Kidney disea se, GFR = <60. Kidney failure, GFR = <15. The GFR estimate is not adjusted for extreme body surface area or acute process, nor has it been validated for women or ethnic groups other than and . GFR/1.73 sq M.predicted among blacks MDRD (S/P/Bld) [Vol rate/Area] 127 mL/min/{1.73_m2} ml/min/1.73sq .m [facility] GFR/1.73 sq M.predicted among non-blacks MDRD (S/P/Bld) [Vol rate/Area] 105 mL/min/{1.73_m2} ml/min/1.73sq .m [facility] Glucose post fast [Mass/Vol] 91 mg/dL [facility] Comment on above: NORMAL <100 mg/dL PREDIABETES 101-126 mg/dL DIABETES 126 mg/dL or higher Interpretation and review of laboratory results Abnormal [facility] Potassium [Moles/Vol] 3.9 mmol/L [facility] Protein [Mass/Vol] 6.1 g/dL Low [facility] Sodium [Moles/Vol] 135 mmol/L Low [facility] Urea nitrogen [Mass/Vol] 12 mg/dL [facility] ECGOrdered By: Delgado da silva on 11-03-2023 [facility] Work Phone: HEMOGLOBIN A1Con 11-03-2023 Glucose [Mass/Vol] 100 mg/dL [facility] HbA1c (Bld) [Mass fraction] 5.1 % 0 - 6 % [facility] Comment on above: NORMAL <5.7% PREDIABETES 5.7-6.4% DIABETES 6.5% OR HIGHER [facility] Glucose [Mass/Vol] 100 mg/dL Normal [facility] Comment on above: Performed By: #### A CBC, CMPF, PT #### Testing performed at [address] [address] HbA1c (Bld) [Mass fraction] 5.1 % Normal 0-6 [facility] Comment on above: Result Comment: NORMAL <5.7% PREDIABETES 5.7-6.4% DIABETES 6.5% OR HIGHER Performed By: #### A CBC, CMPF, PT #### Testing performed at [address] [address] MRSA SCREENon 11-03-2023 MRSA DNA NOHELIA+probe Ql (Unsp spec) Negative Normal NEGATIVE [facility] Comment on above: Performed By: #### M RSAST #### Testing performed at [address] [address] STAPH AUREUS SCREEN Negative Normal NEGATIVE [facility] Comment on above: Result Comment: TEST ING PERFORMED BY PCR Performed By: #### M RSAST #### Testing performed at [address] [address] PROTIMEon 11-03-2023 INR Coag (PPP) [Relative time] 0.94 {INR} Normal 0.85-1.10 [facility] Comment on above: Result Comment: 2.0-3.0 THERAPEUTIC RANGE 2.5-3.5 MECHANICAL VALVE RANGE Performed By: #### A CBC, CMPF, PT #### Testing performed at [address] [address] PT Coag (PPP) [Time] 12.7 s Normal 11.8-14.4 [facility] Comment on above: Performed By: #### A CBC, CMPF, PT #### Testing performed at [address] [address] PROTIME-INRon 11-03-2023 INR Coag (PPP) [Relative time] 0.94 {INR} 0.85 - 1.10 [facility] Comment on above: 2.0-3.0 THERAPEUTIC RANGE 2.5-3.5 MECHANICAL VALVE RANGE PT Coag (PPP) [Time] 12.7 s [facility] SCREEN: MRSA ONLY, NARES (IS OLATION SCREEN)on 11-03-2023 MRSA isol Org specific cx Ql (Nose) Negative NEGATIVE [facility] STAPHYOCOCCUS AUREUS BY PCR Negative NEGATIVE [facility] Comment on above: TESTING PERFORMED BY PCR [facility], MACROon 11-03-20 23 Bilirubin Ql (U) Negative NEGATIVE [facility] Clarity (U) CLEAR CLEAR [employer] [facility] Color (U) YELLOW YELLOW [employer] Glucose Test strip (U) [Mass/Vol] Negative NEGATIVE mg/dl [facility] Hemoglobin Ql (U) Negative NEGATIVE [facility] Ketones (U) [Mass/Vol] Negative NEGATIVE mg/dl [facility] Leukocyte esterase Test strip Ql (U) Negative NEGATIVE [facility] Nitrite Ql (U) Negative NEGATIVE [facility] pH (U) 7.0 [pH] 5.0 - 7.0 [facility] Protein Ql (U) Negative NEGATIVE mg/dl [facility] Specific gravity (U) [Rel density] 1.015 1.010 - 1.025 [facility] Urobilinogen (U) [Mass/Vol] 0.2 mg/dL [facility] URINE MACROSCOPICon 11-03-20 Bilirubin Ql (U) Negative Normal NEGATIVE [facility] Comment on above: Performed By: #### U MAC #### Testing performed at [address] [address] Clarity (U) CLEAR Normal CLEAR [facility] Comment on above: Performed By: #### U MAC #### Testing performed at [address] [address] Color (U) YELLOW Normal YELLOW [facility] Comment on above: Performed By: #### U MAC #### Testing performed at [address] [address] Glucose Ql (U) Negative Normal NEGATIVE [facility] Comment on above: Performed By: #### U MAC #### Testing performed at [address] [address] pH (U) 7.0 [pH] Normal 5.0-7.0 [facility] Comment on above: Performed By: #### U MAC #### Testing performed at [address] [address] URINE HEMOGLOBIN Negative Normal NEGATIVE [facility] Comment on above: Performed By: #### U MAC #### Testing performed at [address] [address] URINE KETONE Negative Normal NEGATIVE [facility] Comment on above: Performed By: #### U MAC #### Testing performed at [address] [address] URINE LEUKOTEST Negative Normal NEGATIVE [facility] Comment on above: Performed By: #### U MAC #### Testing performed at [address] [address] URINE NITRATES Negative Normal NEGATIVE [facility] Comment on above: Performed By: #### U MAC #### Testing performed at [address] [address] URINE SPEC GRAVITY 1.015 Normal 1.010-1.025 [facility] Comment on above: Performed By: #### U MAC #### Testing performed at [address] [address] URINE TOTAL PROTEIN Negative Normal NEGATIVE [facility] Comment on above: Performed By: #### U MAC #### Testing performed at [address] [address] Urobilinogen Qn (U) 0.2 {Flaquita'U}/dL Normal 0.2-1.0 [facility] Comment on above: Performed By: #### U MAC #### Testing performed at [address] [address] C3 and C4 COMPLEMENTon 02-09 Complement C3, Serum 140 mg/dL Normal 82-167 [facility] Comment on above: Performed By: #### L IVER, LIPID, TSH, FT3, T4 #### [facility] [id number] Frank [place] Complement C4, Serum 36 mg/dL Normal 12-38 [facility] Comment on above: Performed By: #### L IVER, LIPID, TSH, FT3, T4 #### [facility] [address] [place], [place] [address] [address] Frank Hills COMPLEMENT TOTAL (CH50)on Complement, Total (CH50) >60 Normal >41 [facility] Comment on above: Result Comment: Age [...] values. Performed By: #### C H50T #### [facility] [address] [place] [address] Dr. Frank Hills CBC AUTO DIFFon 02-08-2023 BASO # 0.0 103/ul Normal 0.0-0.1 [facility] Comment on above: Performed By: #### C BC #### [facility] [address] [place] [address] Dr. Frank Hills Basophils/100 WBC (Bld) 0.3 % Normal 0.2-2.0 [facility] Comment on above: Performed By: #### C BC #### [facility] [address] [place] [address] Dr. Frank Hills EO # 0.1 103/ul Normal 0.0-0.7 [facility] Comment on above: Performed By: #### C BC #### [facility] [address] [place] [address] Dr. Frank Hills Eosinophils/100 WBC (Bld) 1.6 % Normal 0.9-7.0 [facility] Comment on above: Performed By: #### C BC #### [facility] [address] [place] [address] Dr. Frank Hills Erythrocyte distribution width (RBC) [Ratio] 13.6 % Normal 11.0-15.0 [facility] Comment on above: Performed By: #### C BC #### [facility] [address] [place] [address] Dr. Frank Hills Hematocrit (Bld) [Volume fraction] 36.4 % Normal 36.0-48.0 [facility] Comment on above: Performed By: #### C BC #### [facility] [address] [place] [address] Dr. Frank Hills Hemoglobin (Bld) [Mass/Vol] 11.8 g/dL Critically low 12.0-16.0 [facility] Comment on above: Performed By: #### C BC #### [facility] [address] [place] [address] Dr. Frank Hills IG # 0.01 10e3/ul Normal 0.00-0.03 [facility] Comment on above: Performed By: #### C BC #### [facility] [address] [place] [address] Dr. Frank Hills IG % 0.3 % Normal 0.0-0.5 [facility] Comment on above: Performed By: #### C BC #### [facility] [address] [place] [address] Dr. Frank Hills LYMPH # 0.6 103/ul Critically low 1.2-3.8 [facility] Comment on above: Performed By: #### C BC #### [facility] [address] [place] [address] Dr. Frank Hills Lymphocytes/100 WBC (Bld) 15.3 % Critically low 20.5-60.0 [facility] Comment on above: Performed By: #### C BC #### [facility] [address] [place] [address] Dr. Frank Hills MANUAL DIFF REQ NO Normal [facility] Comment on above: Performed By: #### C BC #### [facility] [address] [place] [address] Dr. Frank Hills MCH (RBC) [Entitic mass] 33.2 pg Normal 26.7-34.0 [facility] Comment on above: Performed By: #### C BC #### [facility] [address] [place] [address] Dr. Frank Hills MCHC (RBC) [Mass/Vol] 32.4 g/dL Normal 29.9-35.2 [facility] Comment on above: Performed By: #### C BC #### [facility] [address] [place] [address] Dr. Frank Hills MCV (RBC) [Entitic vol] 102.5 fL Critically high 81.0-99.0 [facility] Comment on above: Performed By: #### C BC #### [facility] [address] [place] [address] Dr. Frank Hills MONO # 0.5 103/ul Normal 0.3-0.8 [facility] Comment on above: Performed By: #### C BC #### [facility] [address] [place] [address] [address] Frank Hills Monocytes/100 WBC (Bld) 12.5 % Critically high 1.7-12.0 [facility] Comment on above: Performed By: #### C BC #### [facility] [address] [place] [address] [address] Frank Hills NEUT # 2.6 103/ul Normal 1.4-6.5 [facility] Comment on above: Performed By: #### C BC #### [facility] [address] [address] [address] Frank Hills Neutrophils/100 WBC (Bld) 70.0 % Normal 43.0-75.0 [facility] Comment on above: Performed By: #### C BC #### [facility] [address] [place] [address] Dr. Frank Hills Platelet mean volume (Bld) [Entitic vol] 9.0 fL Critically low 9.5-13.5 [facility] Comment on above: Performed By: #### C BC #### [facility] [address] [place] [address] Dr. Frank Hills PLT 192 103/ul Normal 150-450 [facility] Comment on above: Performed By: #### C BC #### [facility] [address] [place] [address] Dr. Frank Hills RBC 3.55 106/ul Critically low 4.20-5.40 [facility] Comment on above: Performed By: #### C BC #### [facility] [address] [place] [address] Dr. Frank Hills WBC 3.7 103/ul Critically low 4.0-11.0 [facility] Comment on above: Performed By: #### C BC #### [facility] [address] [place] [address] Dr. Frank Hills PROF 14(COMP METB)on 023 Albumin [Mass/Vol] 3.7 g/dL Normal 3.4-5.0 [facility] Comment on above: Performed By: #### L IVER, LIPID, TSH, FT3, T4 #### [facility] [address] [place] [address] Dr. Frank Hills Albumin/Globulin [Mass ratio] 1.2 {ratio} Normal [facility] Comment on above: Performed By: #### L IVER, LIPID, TSH, FT3, T4 #### [facility] [address] [place] [address] Dr. Frank Hills ALP [Catalytic activity/Vol] 66 U/L Normal 46-116 [facility] Comment on above: Performed By: #### L IVER, LIPID, TSH, FT3, T4 #### [facility] [address] [place] [address] Dr. Frank Hills ALT [Catalytic activity/Vol] 29 U/L Normal 14-59 [facility] Comment on above: Performed By: #### L IVER, LIPID, TSH, FT3, T4 #### [facility] [address] [place] [address] Dr. Frank Hills Anion gap [Moles/Vol] 11.6 mmol/L Normal [facility] Comment on above: Performed By: #### L IVER, LIPID, TSH, FT3, T4 #### [facility] [address] [place] [address] Dr. Frank Hills AST [Catalytic activity/Vol] 27 U/L Normal 15-37 [facility] Comment on above: Performed By: #### L IVER, LIPID, TSH, FT3, T4 #### [facility] [address] [place] [address] Dr. Frank Hills Bilirubin [Mass/Vol] 0.7 mg/dL Normal 0.2-1.0 [facility] Comment on above: Performed By: #### L IVER, LIPID, TSH, FT3, T4 #### [facility] [address] [place] [address] Dr. Frank Hills Calcium [Mass/Vol] 9.1 mg/dL Normal 8.5-10.1 [facility] Comment on above: Performed By: #### L IVER, LIPID, TSH, FT3, T4 #### [facility] [address] [address] [address] Frank Hills Chloride [Moles/Vol] 105 mmol/L Normal 98-107 [facility] Comment on above: Performed By: #### L IVER, LIPID, TSH, FT3, T4 #### [facility] [address] [place] [address] Dr. Frank Hills CO2 [Moles/Vol] 29.5 mmol/L Normal 21.0-32.0 [facility] Comment on above: Performed By: #### L IVER, LIPID, TSH, FT3, T4 #### [facility] [address] [place] [address] Dr. Frank Hills Creatinine [Mass/Vol] 0.57 mg/dL Normal 0.55-1.02 [facility] Comment on above: Performed By: #### L IVER, LIPID, TSH, FT3, T4 #### [facility] [address] [place] [address] Dr. Frank Hills EGFR-AF DJIBOUTIAN >60 Normal >=60 [facility] Comment on above: Performed By: #### L IVER, LIPID, TSH, FT3, T4 #### [facility] [address] [place] [address] Dr. Frank Hills EGFR-NON AF DJIBOUTIAN >60 Normal >=60 [facility] Comment on above: Performed By: #### L IVER, LIPID, TSH, FT3, T4 #### [facility] [address] [place] [address] Dr. Frank Hills Globulin (S) [Mass/Vol] 3.1 g/dL Normal [facility] Comment on above: Performed By: #### L IVER, LIPID, TSH, FT3, T4 #### [facility] [address] [place] [address] Dr. Frank Hills Glucose [Mass/Vol] 95 mg/dL Normal 74-106 [facility] Comment on above: Performed By: #### L IVER, LIPID, TSH, FT3, T4 #### [facility] [address] [place] [address] Dr. Frank Hills Potassium [Moles/Vol] 5.1 mmol/L Normal 3.5-5.1 [facility] Comment on above: Performed By: #### L IVER, LIPID, TSH, FT3, T4 #### [facility] [address] [place] [address] Dr. Frank Hills Protein [Mass/Vol] 6.8 g/dL Normal 6.4-8.2 [facility] Comment on above: Performed By: #### L IVER, LIPID, TSH, FT3, T4 #### [facility] [address] [place] [address] Dr. Frank Hills Sodium [Moles/Vol] 141 mmol/L Normal 136-145 [facility] Comment on above: Performed By: #### L IVER, LIPID, TSH, FT3, T4 #### [facility] [address] [place] [address] Dr. Frank Hills Urea nitrogen [Mass/Vol] 13.0 mg/dL Normal 7.0-18.0 [facility] Comment on above: Performed By: #### L IVER, LIPID, TSH, FT3, T4 #### [facility] [address] [place] [address] Dr. Frank Hills Urea nitrogen/Creatinine [Mass ratio] 22.8 mg/mg Normal [facility] Comment on above: Performed By: #### L IVER, LIPID, TSH, FT3, T4 #### [facility] [address] [place] [address] Dr. Frank Hills SED RATE WESTERGRENon 2022 SED RATE 9 mm/hr Normal <=30 [facility] Comment on above: Performed By: #### L IVER, LIPID, TSH, FT3, T4 #### [facility] [address] [place] [address] Dr. Frank Hills UA RANDOM W/MICROSCOPICon BACTERIA NONE SEEN Normal NONE SEEN [facility] Comment on above: Performed By: #### L IVER, LIPID, TSH, FT3, T4 #### [facility] [address] [address] [address] Frank Hills Bilirubin Ql (U) Negative Normal NEGATIVE [facility] Comment on above: Performed By: #### L IVER, LIPID, TSH, FT3, T4 #### [facility] [address] [address] [address] Frank Hills CAST NONE SEEN Normal NONE SEEN [facility] Comment on above: Performed By: #### L IVER, LIPID, TSH, FT3, T4 #### [facility] [address] [address] [address] Frank Hills Clarity (U) CLEAR Normal CLEAR [facility] Comment on above: Performed By: #### L IVER, LIPID, TSH, FT3, T4 #### [facility] [address] [address] [address] Frank Hills Color (U) LT. YELLOW Normal YELLOW [facility] Comment on above: Performed By: #### L IVER, LIPID, TSH, FT3, T4 #### [facility] [address] [address] [address] Frank Hills Crystals LM Nom (Urine sed) NONE SEEN Normal NONE SEEN [facility] Comment on above: Performed By: #### L IVER, LIPID, TSH, FT3, T4 #### [facility] [address] [address] [address] Frank Hills Epithelial cells LM Ql (Urine sed) RARE Normal NONE SEEN /RARE [facility] Comment on above: Performed By: #### L IVER, LIPID, TSH, FT3, T4 #### [facility] [address] [address] [address] Frank Hills Glucose Ql (U) Negative Normal NEGATIVE [facility] Comment on above: Performed By: #### L IVER, LIPID, TSH, FT3, T4 #### [facility] [address] [address] [address] Frank Hills Hemoglobin Ql (U) Negative Normal NEGATIVE [facility] Comment on above: Performed By: #### L IVER, LIPID, TSH, FT3, T4 #### [facility] [address] [address] [address] Frank Hills Ketones Ql (U) Negative Normal NEGATIVE [facility] Comment on above: Performed By: #### L IVER, LIPID, TSH, FT3, T4 #### [facility] [address] [address] [address] Frank Hills LEUKOCYTES Negative Normal NEGATIVE [facility] Comment on above: Performed By: #### L IVER, LIPID, TSH, FT3, T4 #### [facility] [address] [address] [address] Frank Hills MUCOUS NONE SEEN Normal NONE SEEN [facility] Comment on above: Performed By: #### L IVER, LIPID, TSH, FT3, T4 #### [facility] [address] [address] [address] Frank Hills Nitrite Ql (U) Negative Normal NEGATIVE [facility] Comment on above: Performed By: #### L IVER, LIPID, TSH, FT3, T4 #### [facility] [address] [address] [address] Frank Hills pH (U) 6.5 [pH] Normal 5-9 [facility] Comment on above: Performed By: #### L IVER, LIPID, TSH, FT3, T4 #### [facility] [address] [address] [address] Frank Hills RBC NONE SEEN Abnormal 0-2 [facility] Comment on above: Performed By: #### L IVER, LIPID, TSH, FT3, T4 #### [facility] [address] [address] [address] Frank Hills SPEC GRAVITY 1.020 Normal 1.005-<=1.025 [facility] Comment on above: Performed By: #### L IVER, LIPID, TSH, FT3, T4 #### [facility] [address] [address] [address] Frank Hills UA PROTEIN Negative Normal NEGATIVE/ TRACE [facility] Comment on above: Performed By: #### L IVER, LIPID, TSH, FT3, T4 #### [facility] [address] [address] [address] Frank Hills Urobilinogen Qn (U) 0.2 {Flaquita'U}/dL Normal 0.2 - 1. 0 [facility] Comment on above: Performed By: #### L IVER, LIPID, TSH, FT3, T4 #### [facility] [address] [address] [address] Frank Hills WBC NONE SEEN Normal NONE SEEN [facility] Comment on above: Performed By: #### L IVER, LIPID, TSH, FT3, T4 #### [facility] [address] [address] [address] Frank Hills C3 and C4 COMPLEMENTon 11-04 Complement C3, Serum 132 mg/dL Normal 82-167 [facility] Comment on above: Performed By: #### L IVER, LIPID, TSH, FT3, T4 #### [facility] [address] [address] [address] Frank Hills Complement C4, Serum 33 mg/dL Normal 12-38 [facility] Comment on above: Performed By: #### L IVER, LIPID, TSH, FT3, T4 #### [facility] [address] [address] [address] Frank Hills COMPLEMENT TOTAL (CH50)on Complement, Total (CH50) >60 Normal >41 [facility] Comment on above: Result Comment: Age [...] L IVER, LIPID, TSH, FT3, T4 #### [facility] [address] [address] [address] Frank Hills CBC AUTO DIFFon 11-03-2022 BASO # 0.0 103/ul Normal 0.0-0.1 [facility] Comment on above: Performed By: #### L IVER, LIPID, TSH, FT3, T4 #### [facility] [address] [place] [address] Dr. Frank Hills Basophils/100 WBC (Bld) 1.0 % Normal 0.2-2.0 [facility] Comment on above: Performed By: #### L IVER, LIPID, TSH, FT3, T4 #### [facility] [address] [place] [address] Dr. Frank Hills EO # 0.1 103/ul Normal 0.0-0.7 [facility] Comment on above: Performed By: #### L IVER, LIPID, TSH, FT3, T4 #### [facility] [address] [place] [address] Dr. Frank Hills Eosinophils/100 WBC (Bld) 1.8 % Normal 0.9-7.0 [facility] Comment on above: Performed By: #### L IVER, LIPID, TSH, FT3, T4 #### [facility] [address] [place] [address] Dr. Frank Hills Erythrocyte distribution width (RBC) [Ratio] 13.8 % Normal 11.0-15.0 [facility] Comment on above: Performed By: #### L IVER, LIPID, TSH, FT3, T4 #### [facility] [address] [place] [address] Dr. Frank Hills Hematocrit (Bld) [Volume fraction] 36.3 % Normal 36.0-48.0 [facility] Comment on above: Performed By: #### L IVER, LIPID, TSH, FT3, T4 #### [facility] [address] [place] [address] Dr. Frank Hills Hemoglobin (Bld) [Mass/Vol] 11.9 g/dL Critically low 12.0-16.0 [facility] Comment on above: Performed By: #### L IVER, LIPID, TSH, FT3, T4 #### [facility] [address] [place] [address] Dr. Frank Hills IG # 0.02 10e3/ul Normal 0.00-0.03 [facility] Comment on above: Performed By: #### L IVER, LIPID, TSH, FT3, T4 #### [facility] [address] [place] [address] Dr. Frank Hills IG % 0.5 % Normal 0.0-0.5 [facility] Comment on above: Performed By: #### L IVER, LIPID, TSH, FT3, T4 #### [facility] [address] [place] [address] Dr. Frank Hills LYMPH # 0.7 103/ul Critically low 1.2-3.8 [facility] Comment on above: Performed By: #### L IVER, LIPID, TSH, FT3, T4 #### [facility] [address] [place] [address] Dr. Frank Hills Lymphocytes/100 WBC (Bld) 18.0 % Critically low 20.5-60.0 [facility] Comment on above: Performed By: #### L IVER, LIPID, TSH, FT3, T4 #### [facility] [address] [place] [address] Dr. Frank Hills MANUAL DIFF REQ NO Normal [facility] Comment on above: Performed By: #### L IVER, LIPID, TSH, FT3, T4 #### [facility] [address] [place] [address] Dr. Frank Hills MCH (RBC) [Entitic mass] 34.2 pg Critically high 26.7-34.0 [facility] Comment on above: Performed By: #### L IVER, LIPID, TSH, FT3, T4 #### [facility] [address] [place] [address] Dr. Frank Hills MCHC (RBC) [Mass/Vol] 32.8 g/dL Normal 29.9-35.2 [facility] Comment on above: Performed By: #### L IVER, LIPID, TSH, FT3, T4 #### [facility] [address] [place] [address] Dr. Frank Hills MCV (RBC) [Entitic vol] 104.3 fL Critically high 81.0-99.0 [facility] Comment on above: Performed By: #### L IVER, LIPID, TSH, FT3, T4 #### [facility] [address] [place] [address] Dr. Frank Hills MONO # 0.4 103/ul Normal 0.3-0.8 [facility] Comment on above: Performed By: #### L IVER, LIPID, TSH, FT3, T4 #### [facility] [address] [address] [address] Frank Hills Monocytes/100 WBC (Bld) 10.0 % Normal 1.7-12.0 [facility] Comment on above: Performed By: #### L IVER, LIPID, TSH, FT3, T4 #### [facility] [address] [place] [address] Dr. Frank Hills NEUT # 2.7 103/ul Normal 1.4-6.5 [facility] Comment on above: Performed By: #### L IVER, LIPID, TSH, FT3, T4 #### [facility] [address] [place] [address] Dr. Frank Hills Neutrophils/100 WBC (Bld) 68.7 % Normal 43.0-75.0 [facility] Comment on above: Performed By: #### L IVER, LIPID, TSH, FT3, T4 #### [facility] [address] [place] [address] Dr. Frnak Hills Platelet mean volume (Bld) [Entitic vol] 9.4 fL Critically low 9.5-13.5 [facility] Comment on above: Performed By: #### L IVER, LIPID, TSH, FT3, T4 #### [facility] [address] [address] [address] Frank Hills PLT 187 103/ul Normal 150-450 [facility] Comment on above: Performed By: #### L IVER, LIPID, TSH, FT3, T4 #### [facility] [address] [place] [address] Dr. Frank Hills RBC 3.48 106/ul Critically low 4.20-5.40 [facility] Comment on above: Performed By: #### L IVER, LIPID, TSH, FT3, T4 #### [facility] [address] [address] [address] Frank Hills WBC 3.9 103/ul Critically low 4.0-11.0 [facility] Comment on above: Performed By: #### L IVER, LIPID, TSH, FT3, T4 #### [facility] [address] [address] [address] Frank Hills PROF 14(COMP METB)on 022 Albumin [Mass/Vol] 3.9 g/dL Normal 3.4-5.0 [facility] Comment on above: Performed By: #### L IVER, LIPID, TSH, FT3, T4 #### [facility] [address] [place] [address] Dr. Frank Hills Albumin/Globulin [Mass ratio] 1.3 {ratio} Normal [facility] Comment on above: Performed By: #### L IVER, LIPID, TSH, FT3, T4 #### [facility] [address] [address] [address] Frank Hills ALP [Catalytic activity/Vol] 63 U/L Normal 46-116 [facility] Comment on above: Performed By: #### L IVER, LIPID, TSH, FT3, T4 #### [facility] [address] [address] [address] Frank Hills ALT [Catalytic activity/Vol] 27 U/L Normal 14-59 [facility] Comment on above: Performed By: #### L IVER, LIPID, TSH, FT3, T4 #### [facility] [address] [address] [address] Frank Hills Anion gap [Moles/Vol] 8.4 mmol/L Normal [facility] Comment on above: Performed By: #### L IVER, LIPID, TSH, FT3, T4 #### [facility] [address] [address] [address] Frank Hills AST [Catalytic activity/Vol] 31 U/L Normal 15-37 [facility] Comment on above: Performed By: #### L IVER, LIPID, TSH, FT3, T4 #### [facility] [address] [address] [address] Frank Hills Bilirubin [Mass/Vol] 0.7 mg/dL Normal 0.2-1.0 [facility] Comment on above: Performed By: #### L IVER, LIPID, TSH, FT3, T4 #### [facility] [address] [address] [address] Frank Hills Calcium [Mass/Vol] 9.0 mg/dL Normal 8.5-10.1 [facility] Comment on above: Performed By: #### L IVER, LIPID, TSH, FT3, T4 #### [facility] [address] [place] [address] Dr. Frank Hills Chloride [Moles/Vol] 102 mmol/L Normal 98-107 [facility] Comment on above: Performed By: #### L IVER, LIPID, TSH, FT3, T4 #### [facility] [address] [place] [address] Dr. Frank Hills CO2 [Moles/Vol] 30.8 mmol/L Normal 21.0-32.0 [facility] Comment on above: Performed By: #### L IVER, LIPID, TSH, FT3, T4 #### [facility] [address] [place] [address] Dr. Frank Hills Creatinine [Mass/Vol] 0.62 mg/dL Normal 0.55-1.02 [facility] Comment on above: Performed By: #### L IVER, LIPID, TSH, FT3, T4 #### [facility] [address] [address] [address] Frank Hills EGFR-AF DJIBOUTIAN >60 Normal >=60 [facility] Comment on above: Performed By: #### L IVER, LIPID, TSH, FT3, T4 #### [facility] [address] [address] [address] Frank Hills EGFR-NON AF DJIBOUTIAN >60 Normal >=60 [facility] Comment on above: Performed By: #### L IVER, LIPID, TSH, FT3, T4 #### [facility] [address] [address] [address] Frank Hills Globulin (S) [Mass/Vol] 3.1 g/dL Normal [facility] Comment on above: Performed By: #### L IVER, LIPID, TSH, FT3, T4 #### [facility] [address] [address] [address] Frank Hills Glucose [Mass/Vol] 102 mg/dL Normal 74-106 [facility] Comment on above: Performed By: #### L IVER, LIPID, TSH, FT3, T4 #### [facility] [address] [place] [address] Dr. Frank Hills Potassium [Moles/Vol] 4.2 mmol/L Normal 3.5-5.1 [facility] Comment on above: Performed By: #### L IVER, LIPID, TSH, FT3, T4 #### [facility] [address] [place] [address] Dr. Frank Hills Protein [Mass/Vol] 7.0 g/dL Normal 6.4-8.2 [facility] Comment on above: Performed By: #### L IVER, LIPID, TSH, FT3, T4 #### [facility] [address] [place] [address] Dr. Frank Hills Sodium [Moles/Vol] 137 mmol/L Normal 136-145 [facility] Comment on above: Performed By: #### L IVER, LIPID, TSH, FT3, T4 #### [facility] [address] [place] [address] Dr. Frank Hills Urea nitrogen [Mass/Vol] 15.0 mg/dL Normal 7.0-18.0 [facility] Comment on above: Performed By: #### L IVER, LIPID, TSH, FT3, T4 #### [facility] [address] [place] [address] Dr. Frank Hills Urea nitrogen/Creatinine [Mass ratio] 24.2 mg/mg Normal [facility] Comment on above: Performed By: #### L IVER, LIPID, TSH, FT3, T4 #### [facility] [address] [address] [address] Frank Hills SED RATE [facility] 2021 SED RATE 8 mm/hr Normal <=30 [facility] Comment on above: Performed By: #### L IVER, LIPID, TSH, FT3, T4 #### [facility] [address] [address] [address] Frank Hills UA RANDOM W/MICROSCOPICon BACTERIA NONE SEEN Normal NONE SEEN [facility] Comment on above: Performed By: #### L IVER, LIPID, TSH, FT3, T4 #### [facility] [address] [place] [address] Dr. Frank Hills Bilirubin Ql (U) Negative Normal NEGATIVE [facility] Comment on above: Performed By: #### L IVER, LIPID, TSH, FT3, T4 #### [facility] [address] [place] [address] Dr. Frank Hills CAST NONE SEEN Normal NONE SEEN [facility] Comment on above: Performed By: #### L IVER, LIPID, TSH, FT3, T4 #### [facility] [address] [place] [address] Dr. Frank Hills Clarity (U) CLEAR Normal CLEAR [facility] Comment on above: Performed By: #### L IVER, LIPID, TSH, FT3, T4 #### [facility] [address] [place] [address] Dr. Frank Hills Color (U) LT. YELLOW Normal YELLOW [facility] Comment on above: Performed By: #### L IVER, LIPID, TSH, FT3, T4 #### [facility] [address] [place] [address] Dr. Frank Hills Crystals LM Nom (Urine sed) NONE SEEN Normal NONE SEEN [facility] Comment on above: Performed By: #### L IVER, LIPID, TSH, FT3, T4 #### [facility] [address] [place] [address] Dr. Frank Hills Epithelial cells LM Ql (Urine sed) NONE SEEN Normal NONE SEEN /RARE [facility] Comment on above: Performed By: #### L IVER, LIPID, TSH, FT3, T4 #### [facility] [address] [address] [address] Frank Hills Glucose Ql (U) Negative Normal NEGATIVE [facility] Comment on above: Performed By: #### L IVER, LIPID, TSH, FT3, T4 #### [facility] [address] [address] [address] Frank Hills Hemoglobin Ql (U) Negative Normal NEGATIVE [facility] Comment on above: Performed By: #### L IVER, LIPID, TSH, FT3, T4 #### [facility] [address] [place] [address] Dr. Frank Hills Ketones Ql (U) Negative Normal NEGATIVE [facility] Comment on above: Performed By: #### L IVER, LIPID, TSH, FT3, T4 #### [facility] [address] [place] [address] Dr. Frank Hills LEUKOCYTES Negative Normal NEGATIVE [facility] Comment on above: Performed By: #### L IVER, LIPID, TSH, FT3, T4 #### [facility] [address] [address] [address] Frank Hills MUCOUS NONE SEEN Normal NONE SEEN [facility] Comment on above: Performed By: #### L IVER, LIPID, TSH, FT3, T4 #### [facility] [address] [address] [address] Frank Hills Nitrite Ql (U) Negative Normal NEGATIVE [facility] Comment on above: Performed By: #### L IVER, LIPID, TSH, FT3, T4 #### [facility] [address] [address] [address] Frank Hills pH (U) 6.5 [pH] Normal 5-9 [facility] Comment on above: Performed By: #### L IVER, LIPID, TSH, FT3, T4 #### [facility] [address] [address] [address] Frank Hills RBC 0-2 Normal 0-2 [facility] Comment on above: Performed By: #### L IVER, LIPID, TSH, FT3, T4 #### [facility] [address] [address] [address] Frank Hills SPEC GRAVITY 1.015 Normal 1.005-<=1.025 [facility] Comment on above: Performed By: #### L IVER, LIPID, TSH, FT3, T4 #### [facility] [address] [address] [address] Frank Hills UA PROTEIN Negative Normal NEGATIVE/ TRACE [facility] Comment on above: Performed By: #### L IVER, LIPID, TSH, FT3, T4 #### [facility] [address] [place] [address] Dr. Frank Hills Urobilinogen Qn (U) 0.2 {Flaquita'U}/dL Normal 0.2 - 1. 0 [facility] Comment on above: Performed By: #### L IVER, LIPID, TSH, FT3, T4 #### [facility] [address] [place] [address] Dr. Frank Hills WBC NONE SEEN Normal NONE SEEN [facility] Comment on above: Performed By: #### L IVER, LIPID, TSH, FT3, T4 #### [facility] [address] [place] [address] Dr. Frank Hills INSULINon 10-19-2022 Insulin 9.2 uIU/mL Normal 2.6-24.9 [facility] Comment on above: Performed By: #### L IVER, LIPID, TSH, FT3, T4 #### [facility] [address] [place] [address] Dr. Frank Hills CBC W MANUAL DIFFon 10-18-20 ANISOCYTOSIS SLIGHT Normal [facility] Comment on above: Performed By: #### L IVER, LIPID, TSH, FT3, T4 #### [facility] [address] [place] [address] Dr. Frank Hills ATYPICAL LYMPH # Normal [facility] Comment on above: Performed By: #### L IVER, LIPID, TSH, FT3, T4 #### [facility] [address] [address] [address] Frank Hills ATYPICAL LYMPH % Normal [facility] Comment on above: Performed By: #### L IVER, LIPID, TSH, FT3, T4 #### [facility] [address] [address] [address] Frank Hills BAND # Normal 0.0-0.3 [facility] Comment on above: Performed By: #### L IVER, LIPID, TSH, FT3, T4 #### [facility] [address] [place] [address] Dr. Frank Hills BAND % Normal 0-5 [facility] Comment on above: Performed By: #### L IVER, LIPID, TSH, FT3, T4 #### [facility] [address] [place] [address] Dr. Frank Hills BASOM # 0.00 103/ul Normal 0.00-0.10 [facility] Comment on above: Performed By: #### L IVER, LIPID, TSH, FT3, T4 #### [facility] [address] [place] [address] Dr. Frank Hills BASOM % 0.0 % Critically low 0.2-2.0 [facility] Comment on above: Performed By: #### L IVER, LIPID, TSH, FT3, T4 #### [facility] [address] [place] [address] Dr. Frank Hills BLAST # Normal [facility] Comment on above: Performed By: #### L IVER, LIPID, TSH, FT3, T4 #### [facility] [address] [place] [address] Dr. Frank Hills BLAST % Normal [facility] Comment on above: Performed By: #### L IVER, LIPID, TSH, FT3, T4 #### [facility] [address] [place] [address] Dr. Frank Hills CORRECTED WBC Normal 4.0-11.0 [facility] Comment on above: Performed By: #### L IVER, LIPID, TSH, FT3, T4 #### [facility] [address] [address] [address] Frank Hills EOS # 0.06 103/ul Normal 0.00-0.70 [facility] Comment on above: Performed By: #### L IVER, LIPID, TSH, FT3, T4 #### [facility] [address] [place] [address] Dr. Frank Hills EOS% 2.0 % Normal 0.9-7.0 [facility] Comment on above: Performed By: #### L IVER, LIPID, TSH, FT3, T4 #### [facility] [address] [place] [address] Dr. Frank Hills HCT 35.6 % Critically low 36.0-48.0 [facility] Comment on above: Performed By: #### L IVER, LIPID, TSH, FT3, T4 #### [facility] [address] [place] [address] Dr. Frank Hills HGB 11.4 g/dl Critically low 12.0-16.0 [facility] Comment on above: Performed By: #### L IVER, LIPID, TSH, FT3, T4 #### [facility] [address] [place] [address] Dr. Frank Hills LYMPHM # 0.48 103/ul Critically low 1.20-3.80 [facility] Comment on above: Performed By: #### L IVER, LIPID, TSH, FT3, T4 #### [facility] [address] [place] [address] Dr. Frank Hills LYMPHM% 17.0 % Critically low 20.5-60.0 [facility] Comment on above: Performed By: #### L IVER, LIPID, TSH, FT3, T4 #### [facility] [address] [place] [address] Dr. Frank Hills MCH 33.4 pg Normal 26.7-34.0 [facility] Comment on above: Performed By: #### L IVER, LIPID, TSH, FT3, T4 #### [facility] [address] [place] [address] Dr. Frank Hills MCHC 32.0 g/dl Normal 29.9-35.2 [facility] Comment on above: Performed By: #### L IVER, LIPID, TSH, FT3, T4 #### [facility] [address] [address] [address] Frank Hills MCV 104.4 fL Critically high 81.0-99.0 [facility] Comment on above: Performed By: #### L IVER, LIPID, TSH, FT3, T4 #### [facility] [address] [address] [address] Frank Hills METAMYELOCYTE # Normal [facility] Comment on above: Performed By: #### L IVER, LIPID, TSH, FT3, T4 #### [facility] [address] [address] [address] Frank Hills METAMYELOCYTE % Normal [facility] Comment on above: Performed By: #### L IVER, LIPID, TSH, FT3, T4 #### [facility] [address] [address] [address] Frank Hills MICROCYTOSIS 1+ Normal [facility] Comment on above: Performed By: #### L IVER, LIPID, TSH, FT3, T4 #### [facility] [address] [address] [address] Frank Hills MONOM# 0.28 103/ul Critically low 0.30-0.80 [facility] Comment on above: Performed By: #### L IVER, LIPID, TSH, FT3, T4 #### [facility] [address] [place] [address] Dr. Frank Hills MONOM% 10.0 % Normal 1.7-12.0 [facility] Comment on above: Performed By: #### L IVER, LIPID, TSH, FT3, T4 #### [facility] [address] [place] [address] Dr. Frank Hills MPV 8.9 fL Critically low 9.5-13.5 [facility] Comment on above: Performed By: #### L IVER, LIPID, TSH, FT3, T4 #### [facility] [address] [address] [address] Frank Hills MYELOCYTE # Normal [facility] Comment on above: Performed By: #### L IVER, LIPID, TSH, FT3, T4 #### [facility] [address] [place] [address] Dr. Frank Hills MYELOCYTE % Normal [facility] Comment on above: Performed By: #### L IVER, LIPID, TSH, FT3, T4 #### [facility] [address] [address] [address] Frank Hills NRBC Normal [facility] Comment on above: Performed By: #### L IVER, LIPID, TSH, FT3, T4 #### [facility] [address] [place] [address] Dr. Frank Hills PLT 169 103/ul Normal 150-450 [facility] Comment on above: Performed By: #### L IVER, LIPID, TSH, FT3, T4 #### [facility] [address] [place] [address] Dr. Frank Hills RBC 3.41 106/ul Critically low 4.20-5.40 [facility] Comment on above: Performed By: #### L IVER, LIPID, TSH, FT3, T4 #### [facility] [address] [place] [address] Dr. Frank Hills RDW 14.1 % Normal 11.0-15.0 [facility] Comment on above: Performed By: #### L IVER, LIPID, TSH, FT3, T4 #### [facility] [address] [place] [address] Dr. Frank Hills SEG # 1.99 103/ul Normal 1.40-6.50 [facility] Comment on above: Performed By: #### L IVER, LIPID, TSH, FT3, T4 #### [facility] [address] [place] [address] Dr. Frank Hills SEG % 71.0 % Normal 43.0-75.0 [facility] Comment on above: Performed By: #### L IVER, LIPID, TSH, FT3, T4 #### [facility] [address] [address] [address] Frank Hills WBC 2.8 103/ul Critically low 4.0-11.0 [facility] Comment on above: Performed By: #### L IVER, LIPID, TSH, FT3, T4 #### [facility] [address] [address] [address] Frank Hills FREE T3on 10-18-2022 FREE T3 2.61 pg/mlL Normal 2.18-3.98 [facility] Comment on above: Performed By: #### L IVER, LIPID, TSH, FT3, T4 #### [facility] [address] [address] [address] Frank Hills GLYCOHEMOGLOBIN A1Con 2021 ADA RECOMMENDATION SEE BELOW Normal [facility] Comment on above: Result Comment: ADA RECOMMENDED LIMIT 4.0 - 6.0 ADA THERAPEUTIC TARGET < 7.0 ACTION SUGGESTED > 7.0 Performed By: #### A 1C #### [facility] [address] [address] [address] Frank Hills Glucose [Mass/Vol] 108 mg/dL Normal [facility] Comment on above: Performed By: #### A 1C #### [facility] [address] [address] [address] Frank Hills HbA1c (Bld) [Mass fraction] 5.4 % Normal 4.5-6.2 [facility] Comment on above: Performed By: #### A 1C #### [facility] [address] [address] [address] Frank Hills IRONon 10-18-2022 Iron [Mass/Vol] 96.0 ug/dL Normal 50.0-170.0 [facility] Comment on above: Performed By: #### L IVER, LIPID, TSH, FT3, T4 #### [facility] [address] [address] [address] Frank Hills LIPID PROFILEon 10-18-2022 CHOL-HDL RATIO NORM SEE BELOW Normal [facility] [place] Comment on above: Result Comment: 3.3 - 4.4 LOW RISK 4.4 - 7.1 AVERAGE RISK 7.1 - 11.0 MODERATE RISK >11.0 HIGH RISK Performed By: #### L IVER, LIPID, TSH, FT3, T4 #### [facility] [address] [place] [address] Dr. Frank Hills Cholesterol [Mass/Vol] 172 mg/dL Normal <=200 [facility] Comment on above: Performed By: #### L IVER, LIPID, TSH, FT3, T4 #### [facility] [address] [place] [address] Dr. Frank Hills Cholesterol in HDL [Mass/Vol] 66 mg/dL Critically high 40-60 [facility] Comment on above: Performed By: #### L IVER, LIPID, TSH, FT3, T4 #### [facility] [address] [place] [address] Dr. Frank Hills Cholesterol in LDL [Mass/Vol] 86.6 mg/dL Normal [facility] Comment on above: Performed By: #### L IVER, LIPID, TSH, FT3, T4 #### [facility] [address] [place] [address] Dr. Frank Hills Cholesterol.total/Ch olesterol in HDL [Mass ratio] 2.6 {ratio} Normal [facility] Comment on above: Performed By: #### L IVER, LIPID, TSH, FT3, T4 #### [facility] [address] [place] [address] Dr. Frank Hills HDL NORMAL > or = 60 mg/dl - LO W CARDIOVASCULAR RISK <40 mg/dl - HIGH CARDIOVASCULAR RISK Normal [facility] Comment on above: Performed By: #### L IVER, LIPID, TSH, FT3, T4 #### [facility] [address] [place] [address] Dr. Frank Hills LDL CALC NORMAL SEE BELOW Normal [facility] Comment on above: Result Comment: <100 mg/dl OPTIMAL 100 - 129 mg/dl NEAR OR ABOVE OPTIMAL 130 - 159 mg/dl BORDERLINE HIGH 160 - 189 mg/dl HIGH >190 mg/dl VERY HIGH Performed By: #### L IVER, LIPID, TSH, FT3, T4 #### [facility] [address] [address] [address] Frank Hills Triglyceride [Mass/Vol] 97 mg/dL Normal <=150 [facility] Comment on above: Performed By: #### L IVER, LIPID, TSH, FT3, T4 #### [facility] [address] [place] [address] Dr. Frank Hlils VLDL CALC 19.4 mg/dL Normal [facility] Comment on above: Performed By: #### L IVER, LIPID, TSH, FT3, T4 #### [facility] [address] [place] [address] Dr. Frank Hills LIVER PROFILEon 10-18-2022 Albumin [Mass/Vol] 3.5 g/dL Normal 3.4-5.0 [facility] Comment on above: Performed By: #### L IVER, LIPID, TSH, FT3, T4 #### [facility] [address] [place] [address] Dr. Frank Hills Albumin/Globulin [Mass ratio] 1.2 {ratio} Normal [facility] Comment on above: Performed By: #### L IVER, LIPID, TSH, FT3, T4 #### [facility] [address] [place] [address] Dr. Frank Hills ALP [Catalytic activity/Vol] 55 U/L Normal 46-116 [facility] Comment on above: Performed By: #### L IVER, LIPID, TSH, FT3, T4 #### [facility] [address] [place] [address] Dr. Frank Hills ALT [Catalytic activity/Vol] 34 U/L Normal 14-59 [facility] Comment on above: Performed By: #### L IVER, LIPID, TSH, FT3, T4 #### [facility] [address] [place] [address] Dr. Frank Hills AST [Catalytic activity/Vol] 40 U/L Critically high 15-37 [facility] Comment on above: Performed By: #### L IVER, LIPID, TSH, FT3, T4 #### [facility] [address] [place] [address] Dr. Frank Hills BILI, CONJUGATED 0.2 mg/dL Normal 0.0-0.2 [facility] Comment on above: Performed By: #### L IVER, LIPID, TSH, FT3, T4 #### [facility] [address] [place] [address] Dr. Frank Hills Bilirubin [Mass/Vol] 0.8 mg/dL Normal 0.2-1.0 [facility] Comment on above: Performed By: #### L IVER, LIPID, TSH, FT3, T4 #### [facility] [address] [place] [address] Dr. Frank Hills Globulin (S) [Mass/Vol] 2.9 g/dL Normal [facility] Comment on above: Performed By: #### L IVER, LIPID, TSH, FT3, T4 #### [facility] [address] [place] [address] Dr. Frank Hills Protein [Mass/Vol] 6.4 g/dL Normal 6.4-8.2 [facility] Comment on above: Performed By: #### L IVER, LIPID, TSH, FT3, T4 #### [facility] [address] [place] [address] Dr. Frank Hills T4on 10-18-2022 T4 [Mass/Vol] 6.70 ug/dL Normal 4.80-13.90 [facility] Comment on above: Performed By: #### L IVER, LIPID, TSH, FT3, T4 #### [facility] [address] [place] [address] Dr. Frank Hills TSHon 10-18-2022 TSH 1.804 uIU/mL Normal 0.358-3.740 [facility] Comment on above: Performed By: #### L IVER, LIPID, TSH, FT3, T4 #### [facility] [address] [place] [address] Dr. Frank Hills VITAMIN D 25 OHon 10-18-2022 VIT D 25-OH 50.7 ng/mL Normal [facility] Comment on above: Performed By: #### L IVER, LIPID, TSH, FT3, T4 #### [facility] [address], [place] [address] Dr. Frank Hills VIT D RANGES SEE BELOW Normal [facility] Comment on above: Result Comment: <20 ng/mL Vit D deficient 20 - <30 ng/mL Vit D insufficient 30 - 100 ng/mL Vit D sufficient >100 ng/mL Potential Toxicity Performed By: #### L IVER, LIPID, TSH, FT3, T4 #### [facility] [address], [place] [address] Dr[address] Frank Hills MG MAMM SCREEN 3D BO CADon 08-31-2022 MG MAMM SCREEN 3D BO CAD Patient: DANYELLE HASKINS Exam Date: 08/31/2022 : 1955 Gender:F Ordering : DR JACK LANDAVERDE . Admission #: [id number] Family : DR YULISA BATRES . Order #: [id number] CLICK HERE TO VIEW EXAM RADIOLOGY REPORT [...] thyroid cancer at age 48. LOCATION: [facility] BREAST COMPOSITION: Scattered areas fibroglandular density. [...] Sandoval MD on 08/31/2022 at 11:14 Normal [facility] XR DEXA BONE DENSITYon 08-27 XR [...] LISY SANDOVAL Date: 2022-08-27 18:41 Normal [facility] COMPLEMENT TOTAL (CH50)on Complement, Total (CH50) >60 Normal >41 [facility] Comment on above: Result Comment: Age [...] L IVER, LIPID, TSH, FT3, T4 #### [facility] [address] [place] [address] Dr. Frank Hills C3 and C4 COMPLEMENTon 08-01 Complement C3, Serum 146 mg/dL Normal 82-167 [facility] Comment on above: Performed By: #### L IVER, LIPID, TSH, FT3, T4 #### [facility] [address] [address] [address] Frank Hills Complement C4, Serum 38 mg/dL Normal 12-38 [facility] Comment on above: Performed By: #### L IVER, LIPID, TSH, FT3, T4 #### [facility] [address] [address] [address] Frank Hills CBC AUTO DIFFon 07-30-2022 BASO # 0.0 103/ul Normal 0.0-0.1 [facility] Comment on above: Performed By: #### C BC #### [facility] [address] [address] [address] Frank Hills Basophils/100 WBC (Bld) 0.9 % Normal 0.2-2.0 [facility] Comment on above: Performed By: #### C BC #### [facility] [address] [address] [address] Frank Hills EO # 0.1 103/ul Normal 0.0-0.7 [facility] Comment on above: Performed By: #### C BC #### [facility] [address] [address] [address] Frank Hills Eosinophils/100 WBC (Bld) 3.4 % Normal 0.9-7.0 [facility] Comment on above: Performed By: #### C BC #### [facility] [address] [place] [address] Dr. Frank Hills Erythrocyte distribution width (RBC) [Ratio] 13.8 % Normal 11.0-15.0 [facility] Comment on above: Performed By: #### C BC #### [facility] [address] [place] [address] Dr. Frank Hills Hematocrit (Bld) [Volume fraction] 36.6 % Normal 36.0-48.0 [facility] Comment on above: Performed By: #### C BC #### [facility] [address] [place] [address] Dr. Frank Hills Hemoglobin (Bld) [Mass/Vol] 11.8 g/dL Critically low 12.0-16.0 [facility] Comment on above: Performed By: #### C BC #### [facility] [address] [place] [address] Dr. Frank Hills IG # 0.01 10e3/ul Normal 0.00-0.03 [facility] Comment on above: Performed By: #### C BC #### [facility] [address] [place] [address] Dr. Frank Hills IG % 0.3 % Normal 0.0-0.5 [facility] Comment on above: Performed By: #### C BC #### [facility] [address] [place] [address] Dr. Frank Hills LYMPH # 0.6 103/ul Critically low 1.2-3.8 [facility] Comment on above: Performed By: #### C BC #### [facility] [address] [place] [address] Dr. Frank Hills Lymphocytes/100 WBC (Bld) 18.1 % Critically low 20.5-60.0 [facility] Comment on above: Performed By: #### C BC #### [facility] [address] [place] [address] Dr. Frank Hills MANUAL DIFF REQ NO Normal [facility] Comment on above: Performed By: #### C BC #### [facility] [address] [place] [address] Dr. Frank Hills MCH (RBC) [Entitic mass] 33.6 pg Normal 26.7-34.0 [facility] Comment on above: Performed By: #### C BC #### [facility] [address] [place] [address] Dr. Frank Hills MCHC (RBC) [Mass/Vol] 32.2 g/dL Normal 29.9-35.2 [facility] Comment on above: Performed By: #### C BC #### [facility] [address] [place] [address] Dr. Frank Hills MCV (RBC) [Entitic vol] 104.3 fL Critically high 81.0-99.0 [facility] Comment on above: Performed By: #### C BC #### [facility] [address] [place] [address] Dr. Frank Hills MONO # 0.4 103/ul Normal 0.3-0.8 [facility] Comment on above: Performed By: #### C BC #### [facility] [address] [place] [address] Dr. Frank Hills Monocytes/100 WBC (Bld) 11.2 % Normal 1.7-12.0 [facility] Comment on above: Performed By: #### C BC #### [facility] [address] [place] [address] Dr. Frank Hills NEUT # 2.3 103/ul Normal 1.4-6.5 [facility] Comment on above: Performed By: #### C BC #### [facility] [address] [address] [address] Frank Hills Neutrophils/100 WBC (Bld) 66.1 % Normal 43.0-75.0 [facility] Comment on above: Performed By: #### C BC #### [facility] [address] [address] [address] Frank Hills Platelet mean volume (Bld) [Entitic vol] 8.9 fL Critically low 9.5-13.5 [facility] Comment on above: Performed By: #### C BC #### [facility] [address] [address] [address] Frank Hills PLT 213 103/ul Normal 150-450 [facility] Comment on above: Performed By: #### C BC #### [facility] [address] [place] [address] Dr. Frank Hills RBC 3.51 106/ul Critically low 4.20-5.40 [facility] Comment on above: Performed By: #### C BC #### [facility] [address] [address] [address] Frank Hills WBC 3.5 103/ul Critically low 4.0-11.0 [facility] Comment on above: Performed By: #### C BC #### [facility] [address] [address] [address] Frank Hills PROF 14(COMP METB)on 022 Albumin [Mass/Vol] 3.7 g/dL Normal 3.4-5.0 [facility] Comment on above: Performed By: #### L IVER, LIPID, TSH, FT3, T4 #### [facility] [address] [address] [address] Frank Hills Albumin/Globulin [Mass ratio] 1.2 {ratio} Normal [facility] Comment on above: Performed By: #### L IVER, LIPID, TSH, FT3, T4 #### [facility] [address] [address] [address] Frank Hills ALP [Catalytic activity/Vol] 59 U/L Normal 46-116 [facility] Comment on above: Performed By: #### L IVER, LIPID, TSH, FT3, T4 #### [facility] [address] [place] [address] Dr. Frank Hills ALT [Catalytic activity/Vol] 23 U/L Normal 14-59 [facility] Comment on above: Performed By: #### L IVER, LIPID, TSH, FT3, T4 #### [facility] [address] [place] [address] Dr. Frank Hills Anion gap [Moles/Vol] 10.2 mmol/L Normal [facility] Comment on above: Performed By: #### L IVER, LIPID, TSH, FT3, T4 #### [facility] [address] [place] [address] Dr. Frank Hills AST [Catalytic activity/Vol] 24 U/L Normal 15-37 [facility] Comment on above: Performed By: #### L IVER, LIPID, TSH, FT3, T4 #### [facility] [address] [place] [address] Dr. Frank Hills Bilirubin [Mass/Vol] 0.6 mg/dL Normal 0.2-1.0 [facility] Comment on above: Performed By: #### L IVER, LIPID, TSH, FT3, T4 #### [facility] [address] [place] [address] Dr. Frank Hills Calcium [Mass/Vol] 8.9 mg/dL Normal 8.5-10.1 [facility] Comment on above: Performed By: #### L IVER, LIPID, TSH, FT3, T4 #### [facility] [address] [place] [address] Dr. Frank Hills Chloride [Moles/Vol] 105 mmol/L Normal 98-107 [facility] Comment on above: Performed By: #### L IVER, LIPID, TSH, FT3, T4 #### [facility] [address] [place] [address] Dr. Frank Hills CO2 [Moles/Vol] 30.0 mmol/L Normal 21.0-32.0 [facility] Comment on above: Performed By: #### L IVER, LIPID, TSH, FT3, T4 #### [facility] [address] [place] [address] Dr. Frank Hills Creatinine [Mass/Vol] 0.64 mg/dL Normal 0.55-1.02 [facility] Comment on above: Performed By: #### L IVER, LIPID, TSH, FT3, T4 #### [facility] [address] [place] [address] Dr. Frnak Hills EGFR-AF DJIBOUTIAN >60 Normal >=60 [facility] Comment on above: Performed By: #### L IVER, LIPID, TSH, FT3, T4 #### [facility] [address] [place] [address] Dr. Frank Hills EGFR-NON AF DJIBOUTIAN >60 Normal >=60 [facility] Comment on above: Performed By: #### L IVER, LIPID, TSH, FT3, T4 #### [facility] [address] [place] [address] Dr. Frank Hills Globulin (S) [Mass/Vol] 3.0 g/dL Normal [facility] Comment on above: Performed By: #### L IVER, LIPID, TSH, FT3, T4 #### [facility] [address] [place] [address] Dr. Frank Hills Glucose [Mass/Vol] 97 mg/dL Normal 74-106 [facility] Comment on above: Performed By: #### L IVER, LIPID, TSH, FT3, T4 #### [facility] [address] [place] [address] Dr. Frank Hills Potassium [Moles/Vol] 4.2 mmol/L Normal 3.5-5.1 [facility] Comment on above: Performed By: #### L IVER, LIPID, TSH, FT3, T4 #### [facility] [address] [place] [address] Dr. Frank Hills Protein [Mass/Vol] 6.7 g/dL Normal 6.4-8.2 [facility] Comment on above: Performed By: #### L IVER, LIPID, TSH, FT3, T4 #### [facility] [address] [place] [address] Dr. Frank Hills Sodium [Moles/Vol] 141 mmol/L Normal 136-145 [facility] Comment on above: Performed By: #### L IVER, LIPID, TSH, FT3, T4 #### [facility] [address] [place] [address] Dr. Frank Hills Urea nitrogen [Mass/Vol] 13.0 mg/dL Normal 7.0-18.0 [facility] Comment on above: Performed By: #### L IVER, LIPID, TSH, FT3, T4 #### [facility] [address] [place] [address] Dr. Frank iHlls Urea nitrogen/Creatinine [Mass ratio] 20.3 mg/mg Normal [facility] Comment on above: Performed By: #### L IVER, LIPID, TSH, FT3, T4 #### [facility] [address] [place] [address] Dr. Frank Hills SED RATE [facility] 2021 SED RATE 8 mm/hr Normal <=30 [facility] Comment on above: Performed By: #### L IVER, LIPID, TSH, FT3, T4 #### [facility] [address] [place] [address] Dr. Frank Hills UA RANDOM W/MICROSCOPICon BACTERIA NONE SEEN Normal NONE SEEN [facility] Comment on above: Performed By: #### L IVER, LIPID, TSH, FT3, T4 #### [facility] [address] [place] [address] Dr. Frank Hills Bilirubin Ql (U) Negative Normal NEGATIVE [facility] Comment on above: Performed By: #### L IVER, LIPID, TSH, FT3, T4 #### [facility] [address] [place] [address] Dr. Frank Hills CAST NONE SEEN Normal NONE SEEN [facility] Comment on above: Performed By: #### L IVER, LIPID, TSH, FT3, T4 #### [facility] [address] [place] [address] Dr. Frank Hills Clarity (U) CLEAR Normal CLEAR [facility] Comment on above: Performed By: #### L IVER, LIPID, TSH, FT3, T4 #### [facility] [address] [address] [address] Frank Hills Color (U) LT. YELLOW Normal YELLOW [facility] Comment on above: Performed By: #### L IVER, LIPID, TSH, FT3, T4 #### [facility] [address] [address] [address] Frank Hills Crystals LM Nom (Urine sed) NONE SEEN Normal NONE SEEN [facility] Comment on above: Performed By: #### L IVER, LIPID, TSH, FT3, T4 #### [facility] [address] [place] [address] Dr. Frank Hills Epithelial cells LM Ql (Urine sed) FEW Abnormal NONE SEEN /RARE [facility] Comment on above: Performed By: #### L IVER, LIPID, TSH, FT3, T4 #### [facility] [address] [place] [address] Dr. Frank Hills Glucose Ql (U) Negative Normal NEGATIVE [facility] Comment on above: Performed By: #### L IVER, LIPID, TSH, FT3, T4 #### [facility] [address] [place] [address] Dr. Frank Hills Hemoglobin Ql (U) Negative Normal NEGATIVE [facility] Comment on above: Performed By: #### L IVER, LIPID, TSH, FT3, T4 #### [facility] [address] [place] [address] Dr. Frank Hills Ketones Ql (U) Negative Normal NEGATIVE [facility] Comment on above: Performed By: #### L IVER, LIPID, TSH, FT3, T4 #### [facility] [address] [place] [address] Dr. Frank Hills LEUKOCYTES TRACE Abnormal NEGATIVE [facility] Comment on above: Performed By: #### L IVER, LIPID, TSH, FT3, T4 #### [facility] [address] [place] [address] Dr. Frank Hills MUCOUS NONE SEEN Normal NONE SEEN [facility] Comment on above: Performed By: #### L IVER, LIPID, TSH, FT3, T4 #### [facility] [address] [place] [address] Dr. Frank Hills Nitrite Ql (U) Negative Normal NEGATIVE [facility] Comment on above: Performed By: #### L IVER, LIPID, TSH, FT3, T4 #### [facility] [address] [address] [address] Frank Hills pH (U) 6.5 [pH] Normal 5-9 [facility] Comment on above: Performed By: #### L IVER, LIPID, TSH, FT3, T4 #### [facility] [address] [place] [address] Dr. Frank Hills RBC 0-2 Normal 0-2 [facility] Comment on above: Performed By: #### L IVER, LIPID, TSH, FT3, T4 #### [facility] [address] [place] [address] Dr. Frank Hills SPEC GRAVITY 1.025 Normal 1.005-<=1.025 [facility] Comment on above: Performed By: #### L IVER, LIPID, TSH, FT3, T4 #### [facility] [address] [place] [address] Dr. Frank Hills UA PROTEIN Negative Normal NEGATIVE/ TRACE [facility] Comment on above: Performed By: #### L IVER, LIPID, TSH, FT3, T4 #### [facility] [address] [place] [address] Dr. Frank Hills Urobilinogen Qn (U) 0.2 {Flaquita'U}/dL Normal 0.2 - 1. 0 [facility] Comment on above: Performed By: #### L IVER, LIPID, TSH, FT3, T4 #### [facility] [address] [place] [address] Dr. Frank Hills WBC 0-2 Abnormal NONE SEEN [facility] Comment on above: Performed By: #### L IVER, LIPID, TSH, FT3, T4 #### [facility] [address] [address] [address] Frank Hills C3 and C4 COMPLEMENTon 04-21 Complement C3, Serum 171 mg/dL Critically high 82-167 [facility] Comment on above: Performed By: #### L IVER, LIPID, TSH, FT3, T4 #### [facility] [address] [address] [address] Frank Hills Complement C4, Serum 40 mg/dL Critically high 12-38 [facility] Comment on above: Performed By: #### L IVER, LIPID, TSH, FT3, T4 #### [facility] [address] [address] [address] Frank Hills COMPLEMENT TOTAL (CH50)on Complement, Total (CH50) >60 Normal >41 [facility] Comment on above: Result Comment: Age Male [...] L IVER, LIPID, TSH, FT3, T4 #### [facility] [address] [address] [address] Frank Hills CBC AUTO DIFFon 04-20-2022 BASO # 0.0 103/ul Normal 0.0-0.1 [facility] Comment on above: Performed By: #### L IVER, LIPID, TSH, FT3, T4 #### [facility] [address] [address] [address] Frank Hills Basophils/100 WBC (Bld) 0.4 % Normal 0.2-2.0 [facility] Comment on above: Performed By: #### L IVER, LIPID, TSH, FT3, T4 #### [facility] [address] [address] [address] Frank Hills EO # 0.1 103/ul Normal 0.0-0.7 [facility] Comment on above: Performed By: #### L IVER, LIPID, TSH, FT3, T4 #### [facility] [address] [place] [address] Dr. Frank Hills Eosinophils/100 WBC (Bld) 1.7 % Normal 0.9-7.0 [facility] Comment on above: Performed By: #### L IVER, LIPID, TSH, FT3, T4 #### [facility] [address] [place] [address] Dr. Frank Hills Erythrocyte distribution width (RBC) [Ratio] 13.2 % Normal 11.0-15.0 [facility] Comment on above: Performed By: #### L IVER, LIPID, TSH, FT3, T4 #### [facility] [address] [place] [address] Dr. Frank Hills Hematocrit (Bld) [Volume fraction] 39.6 % Normal 36.0-48.0 [facility] Comment on above: Performed By: #### L IVER, LIPID, TSH, FT3, T4 #### [facility] [address] [place] [address] Dr. Frank Hills Hemoglobin (Bld) [Mass/Vol] 12.7 g/dL Normal 12.0-16.0 [facility] Comment on above: Performed By: #### L IVER, LIPID, TSH, FT3, T4 #### [facility] [address] [place] [address] Dr. Frank Hills IG # 0.02 10e3/ul Normal 0.00-0.03 [facility] Comment on above: Performed By: #### L IVER, LIPID, TSH, FT3, T4 #### [facility] [address] [place] [address] Dr. Frank Hills IG % 0.4 % Normal 0.0-0.5 [facility] Comment on above: Performed By: #### L IVER, LIPID, TSH, FT3, T4 #### [facility] [address] [place] [address] Dr. Frank Hills LYMPH # 0.9 103/ul Critically low 1.2-3.8 [facility] Comment on above: Performed By: #### L IVER, LIPID, TSH, FT3, T4 #### [facility] [address] [place] [address] Dr. Frank Hills Lymphocytes/100 WBC (Bld) 17.3 % Critically low 20.5-60.0 [facility] Comment on above: Performed By: #### L IVER, LIPID, TSH, FT3, T4 #### [facility] [address] [place] [address] Dr. Frank Hills MANUAL DIFF REQ NO Normal [facility] Comment on above: Performed By: #### L IVER, LIPID, TSH, FT3, T4 #### [facility] [address] [place] [address] Dr. Frank Hills MCH (RBC) [Entitic mass] 33.7 pg Normal 26.7-34.0 [facility] Comment on above: Performed By: #### L IVER, LIPID, TSH, FT3, T4 #### [facility] [address] [place] [address] Dr. Frank Hills MCHC (RBC) [Mass/Vol] 32.1 g/dL Normal 29.9-35.2 [facility] Comment on above: Performed By: #### L IVER, LIPID, TSH, FT3, T4 #### [facility] [address] [place] [address] Dr. Frank Hills MCV (RBC) [Entitic vol] 105.0 fL Critically high 81.0-99.0 [facility] Comment on above: Performed By: #### L IVER, LIPID, TSH, FT3, T4 #### [facility] [address] [place] [address] Dr. Frank Hills MONO # 0.5 103/ul Normal 0.3-0.8 [facility] Comment on above: Performed By: #### L IVER, LIPID, TSH, FT3, T4 #### [facility] [address] [place] [address] Dr. Frank Hills Monocytes/100 WBC (Bld) 8.9 % Normal 1.7-12.0 [facility] Comment on above: Performed By: #### L IVER, LIPID, TSH, FT3, T4 #### [facility] [address] [address] [address] Frank Hills NEUT # 3.7 103/ul Normal 1.4-6.5 [facility] Comment on above: Performed By: #### L IVER, LIPID, TSH, FT3, T4 #### [facility] [address] [address] [address] Frank Hills Neutrophils/100 WBC (Bld) 71.3 % Normal 43.0-75.0 [facility] Comment on above: Performed By: #### L IVER, LIPID, TSH, FT3, T4 #### [facility] [address] [address] [address] Frank Hills Platelet mean volume (Bld) [Entitic vol] 8.9 fL Critically low 9.5-13.5 [facility] Comment on above: Performed By: #### L IVER, LIPID, TSH, FT3, T4 #### [facility] [address] [address] [address] Frank Hills PLT 198 103/ul Normal 150-450 [facility] Comment on above: Performed By: #### L IVER, LIPID, TSH, FT3, T4 #### [facility] [id number] Frank Hills RBC 3.77 106/ul Critically low 4.20-5.40 [facility] Comment on above: Performed By: #### L IVER, LIPID, TSH, FT3, T4 #### [facility] [address] [address] [address] Frank Hills WBC 5.2 103/ul Normal 4.0-11.0 [facility] Comment on above: Performed By: #### L IVER, LIPID, TSH, FT3, T4 #### [facility] [address] [address] [address] Frank Hills MRI BRAIN WO CONon 2 MRI BRAIN WO CON EXAMINATION: MRI BRA IN WO CON, 04/20/2022 9:23 AM EDT HISTORY: Headache COMPARISON: [...] CHARO MAY Date: 2022-04-20 16:44 Normal [facility] PROF 14(COMP METB)on 022 Albumin [Mass/Vol] 4.0 g/dL Normal 3.4-5.0 [facility] Comment on above: Performed By: #### L IVER, LIPID, TSH, FT3, T4 #### [facility] [address] [address] [address] Frank Hills Albumin/Globulin [Mass ratio] 1.1 {ratio} Normal [facility] Comment on above: Performed By: #### L IVER, LIPID, TSH, FT3, T4 #### [facility] [address] [address] [address] Frank Hills ALP [Catalytic activity/Vol] 68 U/L Normal 46-116 [facility] Comment on above: Performed By: #### L IVER, LIPID, TSH, FT3, T4 #### [facility] [address] [address] [address] Frank Hills ALT [Catalytic activity/Vol] 35 U/L Normal 14-59 [facility] Comment on above: Performed By: #### L IVER, LIPID, TSH, FT3, T4 #### [facility] [address] [address] [address] Frank Hills Anion gap [Moles/Vol] 10.1 mmol/L Normal [facility] Comment on above: Performed By: #### L IVER, LIPID, TSH, FT3, T4 #### [facility] [address] [place] [address] Dr. Frank Hills AST [Catalytic activity/Vol] 31 U/L Normal 15-37 [facility] Comment on above: Performed By: #### L IVER, LIPID, TSH, FT3, T4 #### [facility] [address] [place] [address] Dr. Frank Hills Bilirubin [Mass/Vol] 0.9 mg/dL Normal 0.2-1.0 [facility] Comment on above: Performed By: #### L IVER, LIPID, TSH, FT3, T4 #### [facility] [address] [place] [address] Dr. Frank Hills Calcium [Mass/Vol] 9.0 mg/dL Normal 8.5-10.1 [facility] Comment on above: Performed By: #### L IVER, LIPID, TSH, FT3, T4 #### [facility] [address] [place] [address] Dr. Frank Hills Chloride [Moles/Vol] 104 mmol/L Normal 98-107 [facility] Comment on above: Performed By: #### L IVER, LIPID, TSH, FT3, T4 #### [facility] [address] [address] [address] Frank Hills CO2 [Moles/Vol] 29.7 mmol/L Normal 21.0-32.0 [facility] Comment on above: Performed By: #### L IVER, LIPID, TSH, FT3, T4 #### [facility] [address] [place] [address] Dr. Frank Hills Creatinine [Mass/Vol] 0.68 mg/dL Normal 0.55-1.02 [facility] Comment on above: Performed By: #### L IVER, LIPID, TSH, FT3, T4 #### [facility] [address] [address] [address] Frank Hills EGFR-AF DJIBOUTIAN >60 Normal >=60 [facility] Comment on above: Performed By: #### L IVER, LIPID, TSH, FT3, T4 #### [facility] [address] [address] [address] Frank Hills EGFR-NON AF DJIBOUTIAN >60 Normal >=60 [facility] Comment on above: Performed By: #### L IVER, LIPID, TSH, FT3, T4 #### [facility] [address] [place] [address] Dr. Frank Hills Globulin (S) [Mass/Vol] 3.5 g/dL Normal [facility] Comment on above: Performed By: #### L IVER, LIPID, TSH, FT3, T4 #### [facility] [address] [place] [address] Dr. Frank Hills Glucose [Mass/Vol] 92 mg/dL Normal 74-106 [facility] Comment on above: Performed By: #### L IVER, LIPID, TSH, FT3, T4 #### [facility] [address] [place] [address] Dr. Frank Hills Potassium [Moles/Vol] 3.8 mmol/L Normal 3.5-5.1 [facility] Comment on above: Performed By: #### L IVER, LIPID, TSH, FT3, T4 #### [facility] [address] [place] [address] Dr. Frank Hills Protein [Mass/Vol] 7.5 g/dL Normal 6.4-8.2 [facility] Comment on above: Performed By: #### L IVER, LIPID, TSH, FT3, T4 #### [facility] [address] [place] [address] Dr. Frank Hills Sodium [Moles/Vol] 140 mmol/L Normal 136-145 [facility] Comment on above: Performed By: #### L IVER, LIPID, TSH, FT3, T4 #### [facility] [address] [place] [address] Dr. Frank Hills Urea nitrogen [Mass/Vol] 14.0 mg/dL Normal 7.0-18.0 [facility] Comment on above: Performed By: #### L IVER, LIPID, TSH, FT3, T4 #### [facility] [address] [place] [address] Dr. Frank Hills Urea nitrogen/Creatinine [Mass ratio] 20.6 mg/mg Normal [facility] Comment on above: Performed By: #### L IVER, LIPID, TSH, FT3, T4 #### [facility] [address] [place] [address] Dr. Frank Hills SED RATE [facility] 2021 SED RATE 6 mm/hr Normal <=30 [facility] Comment on above: Performed By: #### S EDR #### [facility] [address] [place] [address] Dr. Frank Hills UA RANDOM W/MICROSCOPICon BACTERIA NONE SEEN Normal NONE SEEN [facility] Comment on above: Performed By: #### L IVER, LIPID, TSH, FT3, T4 #### [facility] [address] [place] [address] Dr. Frank Hills Bilirubin Ql (U) Negative Normal NEGATIVE [facility] Comment on above: Performed By: #### L IVER, LIPID, TSH, FT3, T4 #### [facility] [address] [place] [address] Dr. Frank Hills CAST NONE SEEN Normal NONE SEEN [facility] Comment on above: Performed By: #### L IVER, LIPID, TSH, FT3, T4 #### [facility] [address] [place] [address] Dr. Frank Hills Clarity (U) CLEAR Normal CLEAR [facility] Comment on above: Performed By: #### L IVER, LIPID, TSH, FT3, T4 #### [facility] [address] [place] [address] Dr. Frank Hills Color (U) LT. YELLOW Normal YELLOW [facility] Comment on above: Performed By: #### L IVER, LIPID, TSH, FT3, T4 #### [facility] [address] [address] [address] Frank Hills Crystals LM Nom (Urine sed) NONE SEEN Normal NONE SEEN [facility] Comment on above: Performed By: #### L IVER, LIPID, TSH, FT3, T4 #### [facility] [address] [address] [address] Frank Hills Epithelial cells LM Ql (Urine sed) RARE Normal NONE SEEN /RARE [facility] Comment on above: Performed By: #### L IVER, LIPID, TSH, FT3, T4 #### [facility] [address] [place] [address] Dr. Frank Hills Glucose Ql (U) Negative Normal NEGATIVE [facility] Comment on above: Performed By: #### L IVER, LIPID, TSH, FT3, T4 #### [facility] [address] [place] [address] Dr. Frank Hills Hemoglobin Ql (U) Negative Normal NEGATIVE [facility] Comment on above: Performed By: #### L IVER, LIPID, TSH, FT3, T4 #### [facility] [address] [place] [address] Dr. Frank Hills Ketones Ql (U) Negative Normal NEGATIVE [facility] Comment on above: Performed By: #### L IVER, LIPID, TSH, FT3, T4 #### [facility] [address] [place] [address] Dr. Frank Hills LEUKOCYTES Negative Normal NEGATIVE [facility] Comment on above: Performed By: #### L IVER, LIPID, TSH, FT3, T4 #### [facility] [address] [place] [address] Dr. Frank Hills MUCOUS TRACE Abnormal NONE SEEN [facility] Comment on above: Performed By: #### L IVER, LIPID, TSH, FT3, T4 #### [facility] [address] [place] [address] Dr. Frank Hills Nitrite Ql (U) Negative Normal NEGATIVE [facility] Comment on above: Performed By: #### L IVER, LIPID, TSH, FT3, T4 #### [facility] [address] [place] [address] Dr. Frank Hills pH (U) 6.0 [pH] Normal 5-9 [facility] Comment on above: Performed By: #### L IVER, LIPID, TSH, FT3, T4 #### [facility] [address] [place] [address] Dr. Frank Hills RBC NONE SEEN Abnormal 0-2 [facility] Comment on above: Performed By: #### L IVER, LIPID, TSH, FT3, T4 #### [facility] [address] [place] [address] Dr. Frank Hills SPEC GRAVITY 1.020 Normal 1.005-<=1.025 [facility] Comment on above: Performed By: #### L IVER, LIPID, TSH, FT3, T4 #### [facility] [address] [place] [address] Dr. Frank Hills UA PROTEIN Negative Normal NEGATIVE/ TRACE [facility] Comment on above: Performed By: #### L IVER, LIPID, TSH, FT3, T4 #### [facility] [address] [place] [address] Dr. Frank Hills Urobilinogen Qn (U) 0.2 {Flaquita'U}/dL Normal 0.2 - 1. 0 [facility] Comment on above: Performed By: #### L IVER, LIPID, TSH, FT3, T4 #### [facility] [address] [place] [address] Dr. Frank Hills WBC NONE SEEN Normal NONE SEEN [facility] Comment on above: Performed By: #### L IVER, LIPID, TSH, FT3, T4 #### [facility] [address] [place] [address] Dr. Frank Hills Ambulatory Clinical Summaryo n 10-27-2021 Ambulatory Clinical Summary {[id number]}CD:[id number] Franc Adair [facility] Patient Educationon 10-27- 21 Patient Education Urology Urinary Incontinence Urinary incontinence [...] nerve stimulation). ? For women, using a associate medical director to prevent urine leaks. This is a [...] after experiencing incontinence. General instructions ? Take wmhr-gbr-cnexkrs and prescription medicines only as (more content not included)... Normal Adair [facility] Urology Office/Clinic Noteon 10-27-2021 Urology Office/Clinic [...] urine and/or bladder capacity by US- non-imaging [id number] Urnls Dip Stick Auto w/o Microscopy POC 44922 I have reviewed the previous health record information and history for this patient from Dr. Ramos Follow-up With When Contact Information Richard Leal MD, Maximo Dhaliwal, URO Only if needed [facility] [address] [place] [address]- Additional Instructions: Patient Education Urinary Incontinence I, [...] Diverticulosis Dysuria Encounter for screening colonoscopy for bpf-najp-ziiq patient Hemifacial spasm History of shingles Hyperlipidemia Hypertension Hyperthyroidism Insomnia Nocturia Osteoarthritis Polyneuropathy Post-void dribbling Raynaud phenomenon Recurrent UTI Rosacea Urethral stricture Historical No qualifying data Procedure/Surgical History Hip replacement (12/13/2016), Fusion of lumbar spine (12/06/2011), Ablation (08/18/2005), Excision of sebaceous cyst (08/27/1999), Arthroscopy of knee, Dilatation and curettage, Excision of ganglion cyst, E (more content not included)... Normal [facility] Comment on above: Result Comment: Elec tronically Signed By: Richard Leal MD, Maximo Dhaliwal\.br\Date and Time Signed: 10/27/21 11:16 EST\.br\Electronically Co-Signed By: Snow Lundberg MA\.br\Date and Time Co-Signed: 10/27/21 11:12 EST Ambulatory Clinical Summaryo n 04-23-2021 Ambulatory Clinical Summary {[id number]}CD:[id number] Normal [facility] Patient Educationon 04-23-20 21 Patient Education Urinary [...] It is (more content not included)... Normal [facility] Urology Office/Clinic Noteon 04-23-2021 Urology Office/Clinic Note [...] procedure, # 2 cap(s), Refills(s) 0, Pharmacy: [facility]/pharmacy #[id number], 172.7, cm, 02/24/21 8:22:00 EDT, Height/Length Dosing, 99.8, kg, 02/24/21 8:21:00 EDT... Urnls Dip Stick Auto w/o Microscopy POC [id number] I have reviewed the previous health record information and history for this pt. from Dr. Ramos. Follow-up With When Contact Information Richard Leal MD, Maximo Dhaliwal, URO [address] [place] [id number]- Additional Instructions: 6mos. pvr Patient Education Urinary Frequency Indu Roblero , personally scribed for Dr. Ramos on 04/23/2021 11:40:24. . Documentation recorded by the scribe, Indu Gonzalez, accurately reflects the services(s) I performed and decisions made by me. Authenticated by Dr. Ramos on 04/23/2021 12:20:53. Problem List/Past Medical History Ongoing Cellulitis of arm Cellulitis of axilla, left Connective tissue disease, undifferentiated Diverticulosis Dysuria Encounter for screening colonoscopy for igl-nxjj-[id number] patient Hemifacial spasm History of shingles Hyperlipidemia Hypertension Hyperthyroidism Insomnia Osteoarthritis Polyneuropathy (more content not included)... Normal [facility] Comment on above: Result Comment: Elec tronically Signed By: Richard Leal MD, Maximo Dhaliwal\.br\Date and Time Signed: 04/23/21 12:21 EDT\.br\Electronically Co-Signed By: Lisa WILLIAMSON, Indu Roman\.br\Date and Time Co-Signed: 04/23/21 11:40 EDT Coding Summary.on 03-16-2021 Coding Summary. [id number] Gh 0bWw+PGhlYWQ+AE3ZMYUvH 23diCEuhY2GJ8nDEO4CXEL QURYIMY3ZTZ5hkMO6VThtP 2VybiAv UdibbDGbHZ87XEe4IDG8mS anTOenmC0rsHDtT3o0CuJx WV05bC52ABhiUPViStQ5Rb ZpbjsgbWFy Z9nvZrKygSXuHqo+PHRhYm xlIHdpZHRoPScxMDAlJyBz kVcbXW4aJr8lZQXlJPXdeV xhcHNlOiBj c1irSKYvABhvYH6ioApuG7 OfdDN1HTXuc9s9Wh96jEM+ LOEbYXW6bLpiSHnvs091El Rbp8cyBIU8 lFMsDPfaTMP7S45yc6J7BO CuZYWqDQZ0rPQ2iL0muNvh bjwcP5IveEGeOsU0FDQ8bY XlgG7mbCvf bnuwjS9sDqo+C62SUT7LZF NMGP5PAos8Q3RdZtmdfVR+ GJ79GLCmYW25jUFfuKKzk3 fiyCg5XmZl HZApIIX6pMosYBwet5JfDI KoD92iiXCfj8K1IQBgmXlx qFXrJgBjtSI2bB5sOVahsm jpk6ibiipx Ywoue0mvot32bL83X05iLT hoDXIhKXQ0WSWyYJFenBbj rz7jkR5jYs3+DDtpz3tca1 awhFw4RyGk RLAfuzSzrSlvOLB5b0PfOp 34U6FweScub4EsHco0de77 gMFso3M9oYG9FRdtSGHwgZ 3oPYozJfI0 VZHhEgQpbA43kWCcLRvnXb 5nhMbjxOnoPD7kUJCsnewu HDMmaY5xSMBzgVCsrSzzAN 4wNTBpbjtm z862ZaRsAQT4GHTyhTWaU1 PhsX7yObToGCXlZWZfB9Bs tLXsWWfjU851WMzoGdW6ET LhpeLnA9Lu OVDlgKizNfG7h8F0Vn1Mu2 TfzhneMNG1ODgfSFW4QtLc YxYrBcC3K7WbGhi1DNGciC ibVK6bN5Ri TUYttwskgzuywIM0QBCkJB MbqX43eIMmTCknKb1fz1Q6 s564FOHpXAEeeR70Dg4agY ogMTBwdCBU qS0gltawd9jnpomuUzHqZI GnBGa8FPk9ONBctOzuCmLf LNM8LuM4LXC3fLBrzK4ncS gavizecK8m Oyc+F34feP0hDSZ5MFD7lf uiKEIomsJsQA41JU34I9Mg PjwvdGFibGU+PGRpdiBzdH fmIQ6zQwQe a0gyq6XbKEthX0WnYXIfNQ vdAxe1ICCvMNB8oGR6fO3u GBLwMExyj8F3pSX6Z3Axoo Puki3ty0qr EBDkEFedL46naXEiz9K9TO VhoST1AVPuyGcgJpErrQ93 Oyc+WJRdiWkqk2LoShvgi0 mxy5bwuGu9 AlWdSHHlgtKcvZwsTQO9c8 CuWx91E82aZDphSYEnSFCq CYReGNZkdZwqhb6epQ4nVh 8+PGNvbCB3 yHP1eF8cUFUhLpG6CZshJ7 38IbVtaASsTmrwy4nwy0vc vPq7BpKqCFEcavExdXhaMI R3g8ObOk04 B92mEHduISDzNMBdJYZuYK ZeyDvufu1tqK2oUx2+PC9j v0glgq31dX07kUP+PHRkIH E9mChgDHeh TIKhuP3mTNokWwI6EQBbGj OhuT82wWUnIUipLi0sbPjj yWkcTF2kRUAcbzdrp142Fb Jsm6qkAEBa sZOpNWxyKQY5F26zh9O9BR GeRNUpTUB3xDF8dX3vpXff bjogbGVmdDsgdmVydGljYW jgBXruK577 IHRvcDsnPlBhdGllbnQgTm WlRUh6K3BoYmh8QHRqwQvx RL8xcTCyCUaoJm2ezWmulH fuPU7yGUJb eaabv598JvQnt9bsPMChqY JdAYafJLL2F93ry8Z0FTVr OHIiVYT5xXA2fS0bzGeqlg ogbGVmdDsg rsAeiAkkZUkeZGshE724NK RvcDsnPkJpcnRoIERhdGU6 VX40KY67lDGdr8F0aCB4A1 BhZGRpbmct hvvrtBR0QDSlZNPzwR95Ba 1jmAwcQo8cVZEoTPH2GDFl bPNfT3QvvA5dXuYsSDLjEX OmF0YhmMOn LBziM354BBjuNfP9URIeyx UcP2ThAQChpQizNuA9p9L2 Cw7AU2O1AR80SS62fSSnb6 L3gUL9P4Gi AUNwjcdbkhfulFT6DGHzQN EcyP59Wk3raNneRz2bYQVy IDV5TXReyEYgX1MaiN5eUs AjMDAwMDAw C4DijHEeCDweQ878HRkeVp Z1XLQbswWcT7JoAIHrdEmb TeB3z7A2Tf0MQYv5YZ55PZ 15iNQnv5R8 rHA3R7IrGOAyfglovxroqT M2HIXxEFVfdT34Bo7ctApx Sr8vSXVkDQL8DOPxiSMzW0 CfoT4aZrNy GGZbSKGzF3ZrdMCrJDevY8 21WPrhIxS1NPVpfiNyG5Ml UDIcrJpoUaG9a0O1Yo4FNM OfZI23OGM3 pYY2UU06QD46I5JuWeiowK FibGU+PHRhYmxlIHdpZHRo ENeqFHJkYlEyeTbpZL0lSx 9yZGVyLWNv wEbcrNRtOwHmw5buPWMfRK jxOU8lcTkzP2PwiHY2JLKs q2b8Pi45I27qV3LweTI+PG KrnCA4dNP2 dB2dEdSzRgG9HIsoX521Bp ThwSBbLiyvn6txa9reeHq5 AdH5LTUxkvRjkInbIFG7g6 FoXl78R82z IHdpZHRoPSIxNSUiIHZhbG tagr9eeY8qJb8+PGNvbCB3 nXG8gA8eEcDwOcI1QFzsQ8 49InRvcCIv Opvgi6ftj4yapLx5UbUfFM QqxbShiCqsNVW2y4AwRv28 Z8JiaRgxg9PpAvr7wj15eT Ekx6V1pQS8 A4TfKKDfnmntgOVydGjzUN 1pOLRjhicbKSXwnN9iVYAa U9x6MzWuBmH1OHhjX0Mfco H6GBQeeEAp LVxoEVD9C50ho0M7ECFaNA KvJWL6vES1zX4gmIhdtyte bGVmdDsgdmVydGljYWwtYW aiM783ZWGe gLtmKTRqaT7aCKGvnMLjcY cqDY3yPGZmfamnVpVMM6ow DWLDADfCJAr3U0NzKza3WQ HltXgqDL3k cAEeHRqcJq3ncAslsUmjLS 4wEXVyirjjNPUbqZ7kKXUc hODurOglUA9kGPMyibvrp3 15BwBfRPG7 AFMwdQMsY9PgyN2jSrUlVC IjGMHuK2TezAGkQWlvF737 NXvpDmL3ARRsydJmV6ZiDD FsaWduOiB0 c7M8Zo4zHS4sAy3vIZOnCW 83XX23zLJhq0K9lFJ0E8Oy QZJafldmqgrklZL5DFYwWJ CilV77fTVq YXtiEv9hw6F1x290FVVlKD UieM24Kq7dmXcxPGSulNZN fT3cssitk7ahahbvPkOoFZ DbWNw0JFx2 MTMyyEooHgYtCXK4YiW4EZ K5jPFkdO5vtQcprznpsI4m Oyc+QjtaTWHjldB9T3WxIb p9RQMdaLic VY8nbVRaQPipOt8kzWlprQ akVX0bGHXhagvpFQTjtB6y LOOwbJHfsHnqMC9vJXJcdk zos635FzDj YYX8CYBdjGExI7ZfyY7fHb QlBRZySNYvP4HmoTFlFOnm D436REyqVfW2RQGasuGiN1 FsLWFsaWdu ZtR1j6W4Qg9BRV0hhBT5U8 FkSww5REJvhDxnMJ3efRZm KWovZp5kbVacnBlyLQ9aEX BpbjtwYWRk yN4dPTMuaQPrlJoqRE9nNB Wrakytz360SoEaEPN2GDEv mHNxB1HheP2qGaEtQEMgBR RgW2VftUSj SMdhS051LSchYpQ4JORhvq ZkI9AkXFCepJqeWpU1c1N9 Qm4DfNVvXBTbAB04QX19XG 09L7VuGnrv dGFibGU+PHRhYmxlIHdpZH PfWCxcWHOdNtZzlCzfEH3d Or2kJIKqVNHmzCbpuWIfRs Fyx6cqNTOb FHpwBQ9rrDduL4AxvOU6MI Rom5t4Ic75E91nG2BajWD+ NPLktKU6hNW8pR8kNyDvXz C4NWcmW091 SbSesEGfVlkbc0hho3daaE v2WqPqQLIoylTpvSgjSZR5 j9VyUd60T70uJVyqTBQvXP IyMCUiIHZh uKippr0fcS2pBw5+PGNvbC U2wXK5eU9cYaPmPoN5YAfl K806CoOwaBAtAkkzW11xT8 JvdXA+PHRy Rci1FUYvkDejKD1edLDaFR qgTj7pPDL7XiMsHkZgXNjx E8PmKTQyfrgaqkltdCC4SQ PfFEJkpK10 Ym9olCdaHy8kOYIfQDQ8TH FvzWRoS3TxsR3fBpExOWPw PAIzQ9CgzVYfXVxbQ275QF agCyT6RUAv jwFkK5BfZKFmsSqjHcV5k8 I7Cb7ZnAgnvFWaDX7mQmGi ZZf5O9AkPcc9OUXqmGttRS 0ncGFkZGlu Pu1ydHzlzMzbOS6rLCQyer fox663UnAfx4ezKMVgcFXk WAikPSF4S32mv1F7TYPsFL StHIR8fMA3 gP6ccBvrvgedlWRnbJxlbk IcjLmlNSvnGLndJ592NPGp bZwgXhYZRea1N6PnAng9WB CxeLcyFQ1a dBCnPWvqWq0dmIwobVixIA 2kHIBuqyxue734OkFki4kw GFAkdOBsAVpgVKT9W66rv6 B1UPHrYTCi PYB4qMZ2cH8xiAitivqolD VmdDsgdmVydGljYWwtYWxp L649ATUphUjhIo7WFfc8D7 AoHst9CSLf yRrvTI2ylAUzIVqnYv7joL cnpYoyXZ2wBGUtmiapw094 VoQos7krFLKhtQWzQYryYI R8Q73yn0C3 QKUnMRGxJFO0lAZ9tE1qxO lnbjogbGVmdDsgdmVydGlj GNwsXEciC546ULBnbSneUv BheWVyOjwv dGQ+AJ51qf47K5ZbRxleMk x1ETOqYRU1tGU2qG2yEZMo LXhql2Q0nXZ3J2EbelWnjp 0xv8zqAQCo [employer] (more content not included)... [facility] Consent for Procedure/Surger yon 03-16-2021 Consent for Procedure/Surgery [id number]#1. 00CD:127 [facility] IntraOperative Documentson 0 03-16-2021 IntraOperative Documents [id number]#1. 00CD:127 [facility] Consent for Treatmenton 0 Consent for Treatment [id number] 0CD:127 [facility] Main OR Intraoperative Recor don 03-12-2021 Main OR Intraoperative Record IntraOp Document Type FTURO Summary Primary Physician: Richard Leal MD, Maximo Dhaliwal Finalized Date/Time: 03/12/21 13:52:16 Pt. Name: DANYELLE HASKNIS John Paul/Sex: 1955 Female Med Rec #: [id number] Physician: Richard Leal MD, Maximo Dhaliwal Financial #: [id number] Pt. Type: O Room/Bed: / Admit/Disch: 03/12/21 [...] Performed Surgeon - Primary Scrub - Primary Harp Maker - Primary Time In 03/12/21 13:44:00 03/12/21 [...] Position Verified Availability Equipment, Medication Time Out Richard Leal MD, Maximo Dhaliwal, Verified (If Participants Savanna Hines CST Applicable) [...] By: Savanna Azevedo RN 03/12/21 13:52 Normal [facility] [place] Main OR Preoperative Recordo n 03-12-2021 Main OR Preoperative Record Holding Area Document Type FTURO Summary Primary Physician: Maximo Ramos Jr., MD Finalized Date/Time: 03/12/21 13:23:03 Pt. Name: DANYELLE HASKINS Gerogina Coker/Sex: 1955 Female Med Rec #: [id number] Physician: Maximo Ramos Jr., MD Financial #: [id number] Pt. Type: O Room/Bed: / Admit/Disch: 03/12/21 [...] 13:08 Savanna Azevedo RN 03/12/21 13:23 Normal [facility] [place] Operative Reporton Operative Report Patient: DANYELLE HASKINS [...] urine. The Urethra was dilated to: 28 Cymraes w/ sounds. Devices Implanted: None. Removal: Cystoscope is removed, The patient tolerated it well. Postoperative Information Discharge: Patient is discharged home with antibiotic coverage, Follow up arranged. Normal [facility] [place] Comment on above: Result Comment: Elec tronically [...] complications The patient was prepped with Betadine. [facility] RAD - Ultrasound Reporton RAD - Ultrasound Report [id number] 0CD:127 Normal [facility] [place] Physician Referralon 021 Physician Referral [id number] CD:127 Normal [facility] [place] Ambulatory Clinical Summaryo n 02-24-2021 Ambulatory Clinical Summary {[id number]}CD:[id number] Normal [facility] [place] Patient Educationon 02-25-20 Patient Education Urinary Tract Infection Urinary tract [...] Document Reviewed: 12/01/2012 ExitCare? Patient Information ?2013 [employer] [facility] Urology Office/Clinic Noteon 02-24-2021 Urology [...] discuss treatment options to establish urologic care. [facility] Staff New patient Danyelle is a 65 [...] Will order Local anesthesia. ABX sent to [facility] in [place]. Ordered: Urology Procedure Order US Renal 2. Dysuria (R30.0: Dysuria) Moderate. Ordered: Urnls Dip Stick Auto w/o Microscopy POC 42284 Urology Procedure Order US Renal 3. Nocturia [...] procedure, # 2 cap(s), Refills(s) 0, Pharmacy: [facility]/pharmacy #[id number], 172.7, cm, 02/24/21 8:22:00 EDT, Height/Length Dosing, 99.8, kg, 02/24/21 8:21:00 (more content not included)... Normal [facility] [place] Comment on above: Result Comment: Elec tronically [...] complications The patient was prepped with Betadine. [facility] CT UPPER EXTREMITY WO CONTRA ST RIGHTon 03-10-2020 CT UPPER EXTREMITY WO CONTRAST RIGHT [facility] Department of Radiology [address] [place] [address] ======== Patient Name: DANYELLE HASKINS : 1955 Sex: F Age: Race: White Pt. Location: 84 Patient Status: O Ordered Date: 03/10/2020 2:25:00 PM Completed Date: 03/10/2020 04:00 PM Requesting Provider: JOE ZUNIGA Attending Provider: JOE ZUNIGA Report Copy To: YULISA BATRES Signs & Symptoms: S42.201A Unsp fracture of upper end of right humerus, init I10 History: [place] Patient to go to clinic after call results to [phone] ortho clinic NO PC MEDICARE/BC CPT CODE 70836 *MLA Comments: right shoulder Exam: CT UPPER [...] as low as reasonably achievable Approved by:Isabell Smith03/10/2020 4:32 PM. I, Abdelrahman Constantino,have reviewed the images and reports Electronically signed: Abdelrahman Constantino. Transcribed by: [email or web address], User Resident: ISABELL MARKHAM Electronically Signed by: ABDELRAHMAN CONSTANTINO @ 03/10/2020 04:46 PM I personally read this/these film(s) with this resident Normal [facility] Comment on above: Order Comment: right shoulder SHOULDER RIGHTon 03-10-2020 SHOULDER RIGHT [facility] Department of Radiology [address] [place] [address] ======== Patient Name: DANYELLE HASKINS : 1955 Sex: F Age: Race: White Pt. Location: Patient Status: O Ordered Date: 03/10/2020 2:05:00 PM Completed Date: 03/10/2020 02:13 PM Requesting Provider: JOE ZUNIGA Attending Provider: Report Copy To: Signs & Symptoms: S42.201A Unsp fracture of upper end of right humerus, init I10 History: [place] Comments: , Views (X-RAY, SHOULDER): Axillary , [...] reviewed the images and reports Electronically signed: Abedlrahman Constantino. Transcribed by: [email or web address], User Resident: ISABELL MARKHAM Electronically Signed by: ABDELRAHMAN CONSTANTINO @ 03/10/2020 04:48 PM I personally read this/these film(s) with this resident Normal [facility] Comment on above: Order Comment: , Shasha [...] with no immediate complications Preparation: with Betadine. [employer] CBC, EDIF, PLATELETon 2018 ABSOLUTE BASOPHIL COUNT 0.[address] Basophils/100 WBC (Bld) 0.6 % 0 - 2 % [address] Differential cell count method Nom (Bld) AUTO DIFF % [address] Eosinophils #/vol (Bld) 0.00 10*3/uL X10 [address] Eosinophils/100 WBC (Bld) 1.0 % 0 - 11 % [address] Erythrocyte distribution width Ratio (RBC) 14.2 % 11.5 - 14.5 % [address] Hematocrit Volume Fraction (Bld) 33.5 % Low 36 - 48 % [address] Hemoglobin mass conc (Bld) 11.5 g/dL Low [address] Interpretation and review of laboratory results Abnormal [address] Lymphocytes #/vol (Bld) 0.70 10*3/uL X10 [address] Lymphocytes/100 WBC (Bld) 16.1 % Low 20 - 55 % [address] MCH Entitic mass (RBC) 34.6 pg 26 - [address] MCHC mass conc (RBC) 34.2 g/dL ONTA [address] MCV Entitic volume (RBC) 101.1 fL High [address] Monocytes #/vol (Bld) 0.4 10*3/uL X10 [address] Monocytes/100 WBC (Bld) 9.9 % 0 - 10 % [address] Neutrophils #/vol (Bld) 3.3 10*3/uL [address] Neutrophils/100 WBC (Bld) 72.4 % 37 - 75 % [address] Platelet mean volume Entitic volume (Bld) 7.[address] Platelets #/vol (Bld) 191 10*3/uL [address] RBC #/vol (Bld) 3.31 10*6/uL Low [address] WBC #/vol (Bld) 4.5 10*3/uL [address] CBC, EDIF, PLATELETon 2018 ABSOLUTE BASOPHIL COUNT 0.[address] Basophils/100 WBC (Bld) 0.2 % 0 - 2 % [address] Differential cell count method Nom (Bld) AUTO DIFF % [address] Eosinophils #/vol (Bld) 0.00 10*3/uL X10 [address] Eosinophils/100 WBC (Bld) 0.1 % 0 - 11 % [address] Erythrocyte distribution width Ratio (RBC) 13.8 % 11.5 - 14.5 % [address] Hematocrit Volume Fraction (Bld) 30.2 % Low 36 - 48 % [address] Hemoglobin mass conc (Bld) 10.5 g/dL Low [address] Interpretation and review of laboratory results Abnormal [address] Lymphocytes #/vol (Bld) 0.50 10*3/uL X10 [address] Lymphocytes/100 WBC (Bld) 8.9 % Low 20 - 55 % [address] MCH Entitic mass (RBC) 34.8 pg 26 - [address] MCHC mass conc (RBC) 34.8 g/dL ONTA [address] MCV Entitic volume (RBC) 99.[address] Monocytes #/vol (Bld) 0.6 10*3/uL X10 [address] Monocytes/100 WBC (Bld) 10.2 % High 0 - 10 % [address] Neutrophils #/vol (Bld) 4.5 10*3/uL [address] Neutrophils/100 WBC (Bld) 80.6 % High 37 - 75 % [address] Platelet mean volume Entitic volume (Bld) 7.[address] Platelets #/vol (Bld) 181 10*3/uL [address] RBC #/vol (Bld) 3.02 10*6/uL Low [address] WBC #/vol (Bld) 5.6 10*3/uL [address] CBC, EDIF, PLATELETon 2018 ABSOLUTE BASOPHIL COUNT 0.[address] Basophils/100 WBC (Bld) 0.2 % 0 - 2 % [address] Differential cell count method Nom (Bld) AUTO DIFF % [address] Eosinophils #/vol (Bld) 0.00 10*3/uL X10 [address] Eosinophils/100 WBC (Bld) 0.7 % 0 - 11 % [address] Erythrocyte distribution width Ratio (RBC) 13.9 % 11.5 - 14.5 % [address] Hematocrit Volume Fraction (Bld) 33.6 % Low 36 - 48 % [address] Hemoglobin mass conc (Bld) 11.5 g/dL Low [address] Interpretation and review of laboratory results Abnormal [address] Lymphocytes #/vol (Bld) 0.70 10*3/uL X10 [address] Lymphocytes/100 WBC (Bld) 14.4 % Low 20 - 55 % [address] MCH Entitic mass (RBC) 34.7 pg 26 - [address] MCHC mass conc (RBC) 34.1 g/dL ONTA [address] MCV Entitic volume (RBC) 101.8 fL High [address] Monocytes #/vol (Bld) 0.5 10*3/uL X10 [address] Monocytes/100 WBC (Bld) 9.8 % 0 - 10 % [address] Neutrophils #/vol (Bld) 3.7 10*3/uL [address] Neutrophils/100 WBC (Bld) 74.9 % 37 - 75 % [address] Platelet mean volume Entitic volume (Bld) 7.[address] Platelets #/vol (Bld) 202 10*3/uL [address] RBC #/vol (Bld) 3.30 10*6/uL [address] WBC #/vol (Bld) 4.9 10*3/uL [address] REPEAT ABO/RH (D) TYPINGon 0 11-21-2018 ABO and Rh group Nom (Bld ) Positive [address] SCREEN: MRSA ONLY, NARES (IS OLATION SCREEN)on 11-21-2018 MRSA isol Org specific cx Ql (Nose) Negative [address] STAPHYOCOCCUS AUREUS BY PCR Negative [address] Comment on above: TESTING PERFORMED BY [...] or acute fracture. RADIOLOGY Basic Metabolic Panelon - Calcium 9.2 mg/dL Normal 8.4-10.2 [facility] Comment on above: Performed By: #### C HEM8 ####Unless otherwise noted, all testing performed by [address] [phone]: [id number] Director: Ramon Araujo M.D. Chloride 110 mmol/L High 98-108 [facility] Comment on above: Performed By: #### C HEM8 ####Unless otherwise noted, all testing performed by [address] [phone]: [id number] Director: Ramon Araujo M.D. CO2 27 mmol/L Normal 21-32 [facility] Comment on above: Performed By: #### C HEM8 ####Unless otherwise noted, all testing performed by [address] [phone]: [id number] Director: Ramon Araujo M.D. Creatinine 0.60 mg/dL Normal 0.60-1.20 [facility] Comment on above: Performed By: #### C HEM8 ####Unless otherwise noted, all testing performed by [address] [phone]: [id number] Director: Ramon Araujo M.D. eGFR (black) mL/min/{1.73_m2} Normal [facility] Comment on above: Result Comment: Afri can Macanese GFR Calc Performed By: #### C HEM8 ####Unless otherwise noted, all testing performed by [facility] [address] [phone]: [id number] Director: Ramon Araujo M.D. eGFR (non-black) mL/min/{1.73_m2} Normal [facility] Comment on above: Result Comment: Non- GFR [...] ####Unless otherwise noted, all testing performed by [address] [phone]: [id number] Director: Ramon Araujo M.D. Glucose mass conc 87 mg/dL Normal 70-99 [facility] Comment on above: Result Comment: This test result might be falsely depressed or falsely elevated onsamples drawn from patients taking Sulfasalazine and Sulfapyridine.Venipuncture should occur prior to taking either of these drugs. Performed By: #### C HEM8 ####Unless otherwise noted, all testing performed by [address] [phone]: [id number] Director: Ramon Araujo M.D. Potassium molar conc 4.2 mmol/L Normal 3.5-5.1 [facility] Comment on above: Performed By: #### C HEM8 ####Unless otherwise noted, all testing performed by [address] [phone]: [id number] Director: Ramon Araujo M.D. Sodium 143 mmol/L Normal 135-145 [facility] Comment on above: Performed By: #### C HEM8 ####Unless otherwise noted, all testing performed by [place] [address], [place] [phone]: [id number] Director: Ramon Araujo M.D. Urea nitrogen 10 mg/dL Normal 8-25 [facility] Comment on above: Performed By: #### C HEM8 ####Unless otherwise noted, all testing performed by [place] [address], [place] [phone]: [id number] Director: Ramon Araujo M.D. [facility] Repor ton 08-15-2017 [facility] Report Type: OrthopedicDictated by: To be signed by: Transcribed by: Transcribed D/ Dictation D/ Report: DATE OF VISIT: 08/11/2017 HISTORY OF PRESENT ILLNESS: Ms. Haskins underwent left patellar tendon repair and inferior partial patellectomy on 07/18/2017 three weeks ago. She is doing well. She is at a [facility] with a knee immobilizer locked out in extension and has been non-weightbearing. She is doing very well. She is happy with her recovery to date. She is having minimal pain, using only Tylenol at this time. She is planning to be discharged from the [facility] next week when she has a wheelchair [...] her that she may shower at the [facility] only using a shower chair with a shower stool. The knee should be in extension before the brace comes off and should remain in extension until the brace goes back on. She should not stand while not wearing the brace. This was all relayed via instructions to the [facility]. We will see her back in three weeks. Dictated by KAREEM Croft, for Dr. Mcclure. 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 She is an established patient of [employer]. She was last seen on 04/27/2017, diagnosed [...] L2,3, 4, and 5 (2011). Skin lesions (2016). FAMILY HISTORY: Father with cancer. Mother with [...] patient is followed by Dr. Monaco, a marketing and promotions manager and by Dr. Lili Parks, a neurologist. [...] of surgery and 2 weeks postoperatively. 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 Normal [facility] Repor ton 07-26-2017 [facility] Report Type: OfficeDictated by: To be signed by: Transcribed by: Transcribed D/ Dictation D/ Report: [facility] ADMISSION NOTE DATE OF ADMISSION: 07/21/17 REASON [...] surgery L2, 3, 4, and 5 in 2012. FAMILY HISTORY: Positive for cancer and heart disease as well as hypertension and diabetes. SOCIAL HISTORY: She lives alone and has no children. No smoking, alcohol, or drug use. The patient is seen by a marketing and promotions manager, has a pain specialist, and a neurologist. [...] 2) Orders reviewed and continue same. Normal [facility] C. difficile Assayon 017 C. difficile interpretation Negative Normal [facility] Comment on above: Result Comment: Rapi d test procedural control acceptable. Performed By: #### z CDIF ####Unless otherwise noted, all testing performed by [address] [phone]: [id number] Director: Ramon Araujo M.D. Specimen Acceptable (CDIF)on 07-24-2017 Specimen Acceptable (CDIF) YES Normal [facility] Comment on above: Result Comment: C. d ifficile testing result(s) to follow. Performed By: #### C DSPEC ####Unless otherwise noted, all testing performed by [address] [phone]: [id number] Director: Ramon Araujo M.D. CBC with Diffon 07-23-2017 Basophils Auto #/vol (Bld) 0.0 K/mcL Normal 0-0.2 [facility] Comment on above: Performed By: #### C BCDIF, CMET, TSH ####Unless otherwise noted, all testing performed by [address] [phone]: [id number] Director: Ramon Araujo M.D. Basophils/100 WBC Auto (Bld) 0.5 % Normal [facility] Comment on above: Performed By: #### C BCDIF, CMET, TSH ####Unless otherwise noted, all testing performed by [place] [phone]: [id number] Director: Ramon Araujo M.D. Eosinophils 0.1 K/mcL Normal 0-0.5 [facility] Comment on above: Performed By: #### C BCDIF, CMET, TSH ####Unless otherwise noted, all testing performed by [address] [phone]: [id number] Director: Ramon Araujo M.D. Eosinophils/100 leukocytes 1.7 % Normal [facility] Comment on above: Performed By: #### C BCDIF, CMET, TSH ####Unless otherwise noted, all testing performed by [address] [phone]: [id number] Director: Ramon Araujo M.D. Erythrocyte distribution width Auto Ratio (RBC) 14.6 % High 10.0-14.4 [facility] Comment on above: Performed By: #### C BCDIF, CMET, TSH ####Unless otherwise noted, all testing performed by [place] [phone]: [id number] Director: Ramon Araujo M.D. Erythrocytes (RBC) 3.32 M/mcL Low 3.7-5.0 [facility] Comment on above: Performed By: #### C BCDIF, CMET, TSH ####Unless otherwise noted, all testing performed by [address] [phone]: [id number] Director: Ramon Araujo M.D. Hematocrit (HCT) 33.9 % Low 34.4-44.8 [facility] Comment on above: Performed By: #### C BCDIF, CMET, TSH ####Unless otherwise noted, all testing performed by [place] [phone]: [id number] Director: Ramon Araujo M.D. Hemoglobin mass conc (Bld) 11.8 g/dL Normal 11.6-15.4 [facility] Comment on above: Performed By: #### C BCDIF, CMET, TSH ####Unless otherwise noted, all testing performed by [address] [phone]: [id number] Director: Ramon Araujo M.D. Lymphocytes 0.8 K/mcL Low 1.0-3.7 [facility] Comment on above: Performed By: #### C BCDIF, CMET, TSH ####Unless otherwise noted, all testing performed by [address] [phone]: [id number] Director: Ramon Araujo M.D. Lymphocytes/100 leukocytes 18.3 % Normal [facility] Comment on above: Performed By: #### C BCDIF, CMET, TSH ####Unless otherwise noted, all testing performed by [address] [phone]: [id number] Director: Ramon Araujo M.D. MCH 35.6 pg High 27.9-33.9 [facility] Comment on above: Performed By: #### C BCDIF, CMET, TSH ####Unless otherwise noted, all testing performed by [address] [phone]: [id number] Director: Ramon Araujo M.D. MCHC mass conc (RBC) 34.8 g/dL Normal 33.1-35.1 [facility] Comment on above: Performed By: #### C BCDIF, CMET, TSH ####Unless otherwise noted, all testing performed by [address] [phone]: [id number] Director: Ramon Araujo M.D. MCV 102.1 fL High 82.6-98.9 [facility] Comment on above: Performed By: #### C BCDIF, CMET, TSH ####Unless otherwise noted, all testing performed by [address] [phone]: [id number] Director: Ramon Araujo M.D. Monocytes 0.6 K/mcL Normal 0.1-0.6 [facility] Comment on above: Performed By: #### C BCDIF, CMET, TSH ####Unless otherwise noted, all testing performed by [facility] [address] [phone]: [id number] Director: Ramon Araujo M.D. Monocytes/100 leukocytes 13.1 % Normal [facility] Comment on above: Performed By: #### C BCDIF, CMET, TSH ####Unless otherwise noted, all testing performed by [phone]: [id number] Director: Ramon Araujo M.D. Neutrophils 3.1 K/mcL Normal 1.2-6.9 [facility] Comment on above: Performed By: #### C BCDIF, CMET, TSH ####Unless otherwise noted, all testing performed by [phone]: [id number] Director: Ramon Araujo M.D. Platelet mean volume (PMV) 7.4 fL Normal 7.0-10.6 [facility] Comment on above: Performed By: #### C BCDIF, CMET, TSH ####Unless otherwise noted, all testing performed by [address] [phone]: [id number] Director: Ramon Araujo M.D. Platelets 229 K/mcL Normal 162-402 [facility] Comment on above: Performed By: #### C BCDIF, CMET, TSH ####Unless otherwise noted, all testing performed by [address] [phone]: [id number] Director: Ramon Araujo M.D. Segmented Neut % 66.4 % Normal [facility] Comment on above: Performed By: #### C BCDIF, CMET, TSH ####Unless otherwise noted, all testing performed by [address] [phone]: [id number] Director: Ramon Araujo M.D. WBC (Leukocytes) 4.6 K/mcL Normal 3.4-10.6 [facility] Comment on above: Performed By: #### C BCDIF, CMET, TSH ####Unless otherwise noted, all testing performed by [address] [phone]: [id number] Director: Ramon Araujo M.D. [facility] 07-23-2017 Alanine aminotransferase (ALT) 27 U/L Normal 14-65 [facility] Comment on above: Result Comment: This test result might be falsely depressed or falsely elevated onsamples drawn from patients taking Sulfasalazine and Sulfapyridine.Venipuncture should occur prior to taking either of these drugs. Performed By: #### C BCDIF, CMET, TSH ####Unless otherwise noted, all testing performed by [address] [phone]: [id number] Director: Ramon Araujo M.D. Albumin 2.8 g/dL Low 3.2-5.2 [facility] Comment on above: Performed By: #### C BCDIF, CMET, TSH ####Unless otherwise noted, all testing performed by [address] [phone]: [id number] Director: Ramon Araujo M.D. Alkaline phosphatase (ALP) 53 U/L Normal 40-150 [facility] Comment on above: Performed By: #### C BCDIF, CMET, TSH ####Unless otherwise noted, all testing performed by [address] [phone]: [id number] Director: Ramon Araujo M.D. Aspartate aminotransferase (AST) 32 U/L Normal 0-45 [facility] Comment on above: Result Comment: This test result might be falsely depressed or falsely elevated onsamples drawn from patients taking Sulfasalazine and Sulfapyridine.Venipuncture should occur prior to taking either of these drugs. Performed By: #### C BCDIF, CMET, TSH ####Unless otherwise noted, all testing performed by [place] [phone]: [id number] Director: Ramon Araujo M.D. Bilirubin (total) 0.9 mg/dL Normal 0.3-1.2 [facility] Comment on above: Performed By: #### C BCDIF, CMET, TSH ####Unless otherwise noted, all testing performed by [address] [phone]: [id number] Director: Ramon Araujo M.D. Calcium 8.7 mg/dL Normal 8.4-10.2 [facility] Comment on above: Performed By: #### C BCDIF, CMET, TSH ####Unless otherwise noted, all testing performed by [address] [phone]: [id number] Director: Ramon Araujo M.D. Chloride 108 mmol/L Normal 98-108 [facility] Comment on above: Performed By: #### C BCDIF, CMET, TSH ####Unless otherwise noted, all testing performed by [address] [phone]: [id number] Director: Ramon Araujo M.D. CO2 26 mmol/L Normal 21-32 [facility] Comment on above: Performed By: #### C BCDIF, CMET, TSH ####Unless otherwise noted, all testing performed by [address] [phone]: [id number] Director: Ramon Araujo M.D. Creatinine 0.57 mg/dL Low 0.60-1.20 [facility] Comment on above: Performed By: #### C BCDIF, CMET, TSH ####Unless otherwise noted, all testing performed by [address] [id number]: [id number] Director: Ramon Araujo M.D. eGFR (black) mL/min/{1.73_m2} Normal [facility] Comment on above: Result Comment: Afri can Macanese GFR Calc Performed By: #### C BCDIF, CMET, TSH ####Unless otherwise noted, all testing performed by [address] [id number]: [id number] Director: Ramon Araujo M.D. eGFR (non-black) mL/min/{1.73_m2} Normal [facility] Comment on above: Result Comment: Non- GFR [...] ####Unless otherwise noted, all testing performed by [address] [id number]: [id number] Director: Ramon Araujo M.D. Glucose mass conc 86 mg/dL Normal 70-99 [facility] Comment on above: Result Comment: This test result might be falsely depressed or falsely elevated onsamples drawn from patients taking Sulfasalazine and Sulfapyridine.Venipuncture should occur prior to taking either of these drugs. Performed By: #### C BCDIF, CMET, TSH ####Unless otherwise noted, all testing performed by [place] [id number]: [id number] Director: Ramon Araujo M.D. Potassium molar conc 3.7 mmol/L Normal 3.5-5.1 [facility] Comment on above: Performed By: #### C BCDIF, CMET, TSH ####Unless otherwise noted, all testing performed by [address] [id number]: [id number] Director: Ramon Araujo M.D. Protein 6.1 g/dL Normal 6.0-8.0 [facility] Comment on above: Performed By: #### C BCDIF, RADHAT, TSH ####Unless otherwise noted, all testing performed by [address] [id number]: [id number] Director: Ramon Araujo M.D. Sodium 141 mmol/L Normal 135-145 [facility] Comment on above: Performed By: #### C BCDIF, CMET, TSH ####Unless otherwise noted, all testing performed by [address] [id number]: [id number] Director: Ramon Araujo M.D. Urea nitrogen 11 mg/dL Normal 8-25 [facility] Comment on above: Performed By: #### C BCDIF, CMET, TSH ####Unless otherwise noted, all testing performed by [address] [id number]: [id number] Director: Ramon Araujo M.D. [facility] Thyroid stimulating hormone (TSH) 1.67 uIU/mL Normal 0.320-5.000 [facility] Comment on above: Performed By: #### C BCDIF, CMET, TSH ####Unless otherwise noted, all testing performed by [address] [id number]: [id number] Director: Ramon Araujo M.D. [facility] 07-21-2017 [facility] NOTES Normal [facility] NURSING NOTEon 07-21-2017 [facility] NOTES Normal [facility] NOT[facility] Normal [facility] NOT[facility] Normal [facility] NOT[facility] Normal [facility] NOT[facility] Normal [facility] NOT[facility] Normal [facility] Normal [facility] NOT[facility] Normal [facility] NOT[facility] Normal [facility] NOT[facility] Normal [facility] NOTES Normal [facility] NOT[facility] Normal [facility] PROGRESSon 07-21-2017 [facility] NOTES Normal [facility] NOT[facility] Normal [facility] NOT[facility] Normal [facility] NOT[facility] Normal [facility] NURSING NOTEon 07-20-2017 [facility] NOTES Normal [facility] NOT[facility] Normal [facility] NOT[facility] Normal [facility] NOT[facility] Normal [facility] PLAN OF CAREon 07-20-2017 [facility] NOTES Normal [facility] NOT[facility] Normal [facility] NOTES Normal [facility] NOT[facility] Normal [facility] PROGRESSon 07-20-2017 [facility] NOTES Normal [facility] NOT[facility] Normal [facility] NOT[facility] Normal [facility] NOT[facility] Normal [facility] NOT[facility] Normal [facility] NOT[facility] Normal [facility] NOT[facility] Normal [facility] NOT[facility] Normal [facility] NOT[facility] Normal [facility] NOT[facility] Normal [facility] NOT[facility] Normal [facility] Anes Post-opon 2017 [facility] NOTES Normal [facility] CONSULTon 2017 [facility] NOTES Normal [facility] Certificatioon 2017 [facility] NOT[facility] Normal [facility] NURSING NOTEon 2017 [facility] NOTES Normal [facility] NOT[facility] Normal [facility] NOT[facility] Normal [facility] NOT[facility] Normal [facility] NOT[facility] Normal [facility] NOTES Normal [facility] NOT[facility] Normal [facility] NOT[facility] Normal [facility] NOT[facility] Normal [facility] NOT[facility] Normal [facility] NOT[facility] Normal [facility] NOTES Normal [facility] PLAN OF CAREon 2017 [facility] CAC NOTES Normal [facility] Normal [facility] NOTES Normal [facility] NOT[facility] Normal [facility] PROGRESSon 2017 [facility] NOTES Normal [facility] NOT[facility] Normal [facility] NOTES Normal [facility] NOTES Normal [facility] NOT[facility] Normal [facility] NOT[facility] NOT[facility] Normal [facility] NOT[facility] Normal [facility] NOT[facility] Normal [facility] BRIEF OP NOTon 07-18-2017 [facility] NOTES Normal [facility] OP NOTEon 07-18-2017 [facility] NOTES Normal [facility] OR NURSINGon 07-18-2017 [facility] NOTES Normal [facility] XR KNEE LEFT 2 VIEWSon 07-18 XR [...] changes as above in satisfactory alignment. Normal [facility] PROGRESSon 07-01-2017 [facility] NOTES Normal [facility] Vital Signs Date Time Vital Sign Value Performing Clinician Facility 08-16-2024 11:30-0400 Body height 172.7 cm Elie Harper DPM Work Phone: [facility] 08-16-2024 11:30-0400 Body mass index (BMI) [Ratio] 34.21 kg/m2 Elie Harper DPM Work Phone: [facility] 08-16-2024 11:30-0400 Body weight 102.06 kg Elie Harper DPM Work Phone: [facility] 08-16-2024 11:30-0400 Respiratory rate 17 /min Elie Harper DPM Work Phone: [facility] 05-31-2024 09:44-0400 Body height 170.2 cm New Mcclure MD Work Phone: [facility] 05-31-2024 09:44-0400 Body mass index (BMI) [Ratio] 37.09 kg/m2 New Mcclure MD Work Phone: [facility] 05-31-2024 09:44-0400 Body temperature 97.5 [degF] New Mcclure MD Work Phone: [facility] 05-31-2024 09:44-0400 Body weight 107.41 kg New Mcculre MD Work Phone: [employer] [facility] 03-22-2024 15:49-0400 Body height 170.2 cm New Mcclure MD Work Phone: [employer] 03-22-2024 15:49-0400 Body mass index (BMI) [Ratio] 35.4 kg/m2 New Mcclure MD Work Phone: [facility] 03-22-2024 15:49-0400 Body weight 102.51 kg New Mcclure [facility] 02-23-2024 11:02-0400 Body height 170.2 cm Rajinder [employer] BUSINESS INSURANCE AGENT-CARVING MACHINE OPERATOR Work Phone: [facility] [employer] 02-23-2024 11:02-0400 Body mass index (BMI) [Ratio] 35.4 kg/m2 [employer] BUSINESS INSURANCE AGENT-CARVING MACHINE OPERATOR Work Phone: [facility] 02-23-2024 11:02-0400 Body weight 102.51 kg [employer] BUSINESS INSURANCE AGENT-CARVING MACHINE OPERATOR Work Phone: [facility] 11-03-2023 10:09-0500 Diastolic blood pressure 89 mm[Hg] Pepe Chaka [employer] [facility] 11-03-2023 10:09-0500 Systolic blood pressure 191 mm[Hg] Pepe Chaka [employer] [facility] 11-03-2023 09:53-0500 Body height 170.2 cm Pepe Chaka [employer] [facility] 11-03-2023 09:53-0500 Body mass index (BMI) [Ratio] 34.46 kg/m2 Pepe Chaka [employer] [facility] 11-03-2023 09:53-0500 Body weight 99.79 kg Pepe Chaka [employer] [facility] 11-03-2023 09:53-0500 Heart rate 67 /min Pepe Chaka [employer] [facility] Comment on above: regular 11-03-2023 09:53-0500 Respiratory rate 20 /min Pepe Chaka [employer] [facility] Comment on above: lungs cta 11-03-2023 09:53-0500 SaO2% (BldA) [Mass fraction] 96 % Pepe Chaka [employer] [facility] 09-01-2023 12:59-0400 Body height 170.2 cm New [facility]ure [facility] 09-01-2023 12:59-0400 Body mass index (BMI) [Ratio] 35.4 kg/m2 New Mcclure MD Work Phone: [facility] 09-01-2023 12:59-0400 Body temperature 98.2 [degF] New Mcclure MD Work Phone: [facility] 09-01-2023 12:59-0400 Body weight 102.51 kg New Mcclure MD Work Phone: [facility] 05-19-2023 14:41-0400 Body height 172.7 cm Rajinder Abby BUSINESS INSURANCE AGENT-CARVING MACHINE OPERATOR Work Phone: [facility] 05-19-2023 14:41-0400 Body mass index (BMI) [Ratio] 34.36 kg/m2 Rajinder Abby BUSINESS INSURANCE AGENT-CARVING MACHINE OPERATOR Work Phone: [employer] 05-19-2023 14:41-0400 Body temperature 97.59 [degF] Rajinder Abby BUSINESS INSURANCE AGENT-CARVING MACHINE OPERATOR Work Phone: [employer] 05-19-2023 14:41-0400 Body weight 102.51 kg Rajinder Abby BUSINESS INSURANCE AGENT-CARVING MACHINE OPERATOR Work Phone: [employer] 08-31-2021 15:30-0400 Body height 173.99 cm Stephen Alicea Other [employer] Other 08-31-2021 15:30-0400 Body mass index (BMI) [Ratio] 30.26 kg/m2 Stephen Alicea Other [employer] Other 08-31-2021 15:30-0400 Body weight 91.63 kg Stephen Alicea Other [employer] Other 08-31-2021 15:30-0400 Diastolic blood pressure 87 mm[Hg] Stephen Alicea Other [employer] Other 08-31-2021 15:30-0400 Systolic blood pressure 145 mm[Hg] Stephen Alicea Other [employer] Other 03-11-2021 13:50-0400 Body height 172.7 cm New Mcclure MD Work Phone: [facility] 03-11-2021 13:50-0400 Body mass index (BMI) [Ratio] 33.45 kg/m2 New Mcclure MD Work Phone: [facility] [employer] 03-11-2021 13:50-0400 Body temperature 97 [degF] New Mcclure MD Work Phone: [facility] 03-11-2021 13:50-0400 Body weight 99.79 kg New Mcclure MD Work Phone: [facility] 11-19-2020 14:21-0500 BMI (Body Mass Index) 34.1 kg/m2 [facility] 11-19-2020 14:21-0500 Body Temperature 97.11 [degF] [facility] 11-19-2020 14:21-0500 Body weight 100.25 kg [facility] tem 11-19-2020 14:21-0500 Height 171.5 cm [facility] 11-21-2019 13:29-0500 BMI (Body Mass Index) 33.42 kg/m2 [facility] 11-21-2019 13:29-0500 Body Temperature 97 [degF] [facility] 11-21-2019 13:29-0500 Body weight 99.7 kg [facility] 11-21-2019 13:29-0500 Height 172.7 cm [facility] 04-18-2019 16:28-0400 BMI (Body Mass Index) 31.02 kg/m2 [facility] 04-18-2019 16:28-0400 Body Temperature 97.59 [degF] [facility] 04-18-2019 16:28-0400 Height 172.7 cm [facility] 04-18-2019 16:28-0400 Weight 92.53 kg [facility] 03-01-2019 14:14-0400 BMI (Body Mass Index) 31.63 kg/m2 [facility] 03-01-2019 14:14-0400 Body Temperature 97.39 [degF] [facility] 03-01-2019 14:14-0400 Height 172.7 cm [facility] 03-01-2019 14:14-0400 Weight 94.35 kg [facility] 01-03-2019 15:24-0500 BMI (Body Mass Index) 31.63 kg/m2 [facility] 01-03-2019 15:24-0500 Body Temperature 97.3 [degF] [facility] 01-03-2019 15:24-0500 Body weight 94.35 kg [facility] 01-03-2019 15:24-0500 Height 172.7 cm [facility] 12-14-2018 14:44-0500 BMI (Body Mass Index) 30.87 kg/m2 [facility] Work Phone: 12-14-2018 14:44-0500 Body Temperature 97.9 [degF] [facility] Work Phone: 12-14-2018 14:44-0500 Height 172.[address] [facility] Work Phone: 12-14-2018 14:44-0500 Weight 92.[address] [facility] Work Phone: 11-24-2018 16:57-0500 Body Temperature 97 [degF] [facility] Work Phone: 11-24-2018 16:57-0500 BP Diastolic 77 mm[Hg] [facility] Work Phone: 11-24-2018 16:57-0500 BP Systolic 155 mm[Hg] [facility] Work Phone: 11-24-2018 16:57-0500 Pulse (Heart Rate) 79 /min [facility] Work Phone: 11-24-2018 16:57-0500 Pulse Oximetry 99 % [facility] Work Phone: 11-24-2018 16:57-0500 Respiratory Rate 18 /min [facility] Work Phone: 11-21-2018 09:00-0500 BMI (Body Mass Index) 32.19 kg/m2 [facility] Work Phone: 11-21-2018 09:00-0500 Height 172.7 cm [facility] Work Phone: 11-21-2018 09:00-0500 Weight 96.03 kg [facility] Work Phone: 10-23-2018 08:49-0500 BP Diastolic 75 mm[Hg] Pepe [employer] [facility] Work Phone: 10-23-2018 08:49-0500 BP Systolic 159 mm[Hg] Pepe Chaka [employer] [facility] Work Phone: 10-23-2018 08:49-0500 Pulse (Heart Rate) 100 /min Pepe Chaka [employer] [facility] Work Phone: 10-13-2018 09:01-0500 BMI (Body Mass Index) 31.93 kg/m2 Pepe Chaka [employer] [facility] Work Phone: 10-13-2018 09:01-0500 Body Temperature 97.81 [degF] Pepe Chaka [employer] [facility] Work Phone: 10-13-2018 09:01-0500 Height 172.7 cm Pepe Chaka [employer] [facility] Work Phone: 10-13-2018 09:01-0500 Pulse Oximetry 99 % Pepe Chaka [employer] [facility] Work Phone: 10-13-2018 09:01-0500 Respiratory Rate 16 /min Pepe Chaka [employer] [facility] Work Phone: 10-13-2018 09:01-0500 Weight 95.25 kg Pepe Chaka [employer] [facility] Work Phone: Encounters Encounter Date Encounter Type Care Provider Facility Start: 08-16-2024 End: 08-16-2024 Bamboo flowsheet Elie Harper DPM Work Phone: [facility] Start: 08-16-2024 End: 08-16-2024 Bamboo flowsheet Elie Harper DPM Work Phone: [facility] Start: 08-16-2024 End: 08-16-2024 Office outpatient visit 15 minutes Elie Harper DPM Work Phone: [facility] Comment on above: Abscess of toe, righ t (Primary Dx); Acquired deformity of left toe Start: 08-16-2024 End: 08-16-2024 ambulatory ELIE HARPER Not Available Start: 08-02-2024 End: 08-02-2024 ambulatory ELIE HARPER Not Available Start: 07-31-2024 End: 07-31-2024 ambulatory RAMON BARRETO Not Available Start: 07-26-2024 End: 07-26-2024 ambulatory MAGALIE SHYANN Not Available Start: 07-18-2024 End: 07-18-2024 ambulatory ELIE HARPER Not Available Start: 07-16-2024 End: 07-16-2024 ambulatory GABY CHRISTIANSON Not Available Start: 06-28-2024 End: 06-28-2024 ambulatory ELIE HARPER Not Available Start: 05-31-2024 End: 05-31-2024 Office outpatient visit 15 minutes New Mcclure MD Work Phone: [facility] Comment on above: Pain in both knees, unspecified chronicity (Primary Dx) Start: 05-31-2024 End: 05-31-2024 Subsequent hospital visit by physician New Mcclure MD Work Phone: [facility] Start: 04-26-2024 End: 04-26-2024 ambulatory MAGALIE KAUFMAN Not Available Start: 04-19-2024 End: 04-19-2024 Office outpatient visit 25 minutes New Mcclure MD Work Phone: [facility] Comment on above: Pain in both knees, unspecified chronicity (Primary Dx) Start: 04-19-2024 End: 04-19-2024 Subsequent hospital visit by physician New Mcclure MD Work Phone: [facility] Start: 04-19-2024 ambulatory [facility] Start: 03-22-2024 End: 03-22-2024 Office outpatient visit 15 minutes New Mcclure MD Work Phone: [facility] Comment on above: Pain in both knees, unspecified chronicity (Primary Dx) Start: 03-22-2024 End: 03-22-2024 Subsequent hospital visit by physician New Mcclure MD Work Phone: [facility] Start: 03-22-2024 ambulatory [facility] Start: 02-23-2024 End: 02-23-2024 Postop follow up visit related to original px Rajinder Green BUSINESS INSURANCE AGENT-CARVING MACHINE OPERATOR Work Phone: [facility] Comment on above: Hx of total knee art hroplasty, left (Primary Dx) Start: 02-23-2024 End: 02-23-2024 Subsequent hospital visit by physician Rajinder SCHWARTZ Work Phone: [facility] Start: 02-23-2024 ambulatory [facility] Start: 01-12-2024 End: 01-12-2024 Office outpatient visit 25 minutes New Mcclure MD Work Phone: [facility] Comment on above: Right knee pain, uns pecified chronicity (Primary Dx) Start: 01-12-2024 End: 01-12-2024 Subsequent hospital visit by physician New Mcclure MD Work Phone: [facility] Start: 01-12-2024 ambulatory [facility] Start: 12-22-2023 End: 12-22-2023 Subsequent hospital visit by physician Rajinder Green APRN-MARTY Work Phone: [facility] Start: 12-22-2023 ambulatory [facility] Start: 11-29-2023 End: 12-02-2023 Evaluation and management of inpatient [facility] Start: 11-10-2023 End: 11-10-2023 ambulatory ELIE HARPER Not Available Start: 11-03-2023 End: 11-03-2023 Admission to establishment New Mcclure MD Work Phone: [facility] Comment on above: Preop testing (Prima ry Dx); Abnormal finding of blood chemistry, unspecified; Abnormal coagulation profile Start: 11-03-2023 End: 11-03-2023 Patient encounter status New Mcclure MD Work Phone: [facility] Start: 11-03-2023 ambulatory [facility] Start: 11-03-2023 Encounter for other preprocedural examination [facility] Start: 09-01-2023 End: 09-01-2023 Office outpatient visit 40 minutes New Mcclure MD Work Phone: [facility] Comment on above: Hx of total knee art hroplasty, right (Primary Dx); Hx of total knee arthroplasty, left Start: 09-01-2023 End: 09-01-2023 Subsequent hospital visit by physician New Mcclure MD Work Phone: [facility] Start: 09-01-2023 ambulatory [facility] Start: 05-19-2023 End: 05-19-2023 Postop follow up visit related to original px Rajinder Green APRN-CARVING MACHINE OPERATOR Work Phone: [facility] Comment on above: Hx of total knee art hroplasty, right (Primary Dx) Start: 05-19-2023 End: 05-19-2023 Subsequent hospital visit by physician Rajinder Green APRN-CARVING MACHINE OPERATOR Work Phone: [facility] Start: 05-19-2023 ambulatory [facility] Start: 03-18-2023 End: 03-18-2023 Subsequent hospital visit by physician New Mcclure MD Work Phone: [facility] Start: 02-08-2023 End: 02-09-[address] YULISA [...] 08-31-2021 End: 08-31-2021 ambulatory Stephen Alicea Other [employer] Other Start: 08-31-2021 Office outpatient ne w 30 minutes Stephen Alicea [facility] Start: 05-07-2021 End: 05-08-2021 ambulatory Mary Mal Facility:[facility] Start: 03-11-2021 End: 03-11-2021 Office outpatient visit 15 minutes New Mcclure MD Work Phone: [facility] Comment on above: Left knee pain, unsp ecified chronicity (Primary Dx); Right knee pain, unspecified chronicity Start: 11-19-2020 End: 11-19-2020 Office outpatient visit 15 minutes New Mcclure Work Phone: [facility] Comment on above: Hx of total knee art hroplasty, left (Primary Dx); Pain in prosthetic joint, initial encounter Start: 11-19-2020 End: 11-19-2020 Subsequent hospital visit by physician New Mcclure Work Phone: [facility] [employer] Start: 11-21-2019 End: 11-21-2019 Office outpatient visit 15 minutes New Mcclure Work Phone: [facility] Comment on above: History of total kne e arthroplasty, left (Primary Dx); Arthritis of right knee Start: 11-21-2019 End: 11-21-2019 Subsequent hospital visit by physician [facility] Start: 04-18-2019 End: 04-18-2019 Office outpatient visit 15 minutes New Mcclure Work Phone: [facility] Comment on above: Right hip pain (Prim ric Dx); Left knee pain, unspecified chronicity; Right knee pain, unspecified chronicity Start: 04-18-2019 End: 04-18-2019 Patient encounter procedure New Mcclure Work Phone: [employer] [facility] Start: 03-01-2019 End: 03-01-2019 Subsequent hospital visit by physician New Mcclure Work Phone: [employer] Start: 03-01-2019 End: 03-01-2019 Letter encounter Provider Aurelio Mcgraw [facility] Start: 03-01-2019 End: 03-01-2019 Office outpatient visit 15 minutes New Mcclure Work Phone: [facility] Comment on above: History of total kne e arthroplasty, left (Primary Dx); Right hip pain Start: 03-01-2019 End: 03-01-2019 Patient encounter procedure New Mcclure Work Phone: [facility] Start: 02-23-2019 End: 02-23-2019 Patient encounter procedure Other Other [facility] Start: 02-09-2019 End: 02-09-2019 Telephone encounter Marcie Grzegorz [facility] Comment on above: Leg Swelling Start: 01-05-2019 End: 01-05-2019 Patient encounter procedure Other Other [facility] Start: 01-03-2019 End: 01-03-2019 Office outpatient visit 15 minutes New Mcclure Work Phone: [facility] Comment on above: History of total kne e arthroplasty, left (Primary Dx) Start: 12-14-2018 End: 12-14-2018 Patient encounter procedure Rajinder Green Work Phone: [facility] Start: 12-14-2018 End: 12-14-2018 Postop follow up visit related to original px Rajinder Green Work Phone: [facility] Comment on above: Hx of total knee art hroplasty, left (Primary Dx) Start: 12-06-2018 End: 12-06-2018 Telephone encounter Marcie Lantigua [facility] Comment on above: Skin Problem Start: 11-30-2018 End: 11-30-2018 Patient encounter procedure Other Other NOTES/RESULTS Start: 11-21-2018 End: 11-24-2018 Evaluation and management of inpatient New Mcclure Work Phone: [facility] Comment on above: Pain in left knee Start: 10-23-2018 End: 10-23-2018 Patient encounter procedure New Mcclure Work Phone: [facility] Pre Admission Comment on above: Pre-op exam (Primary Dx) Start: 09-15-2018 End: 09-15-2018 Patient encounter procedure Richard Macdonald [facility] Start: 08-18-2017 [facility] Start: 07-24-2017 [facility] Start: 07-18-2017 End: 07-21-2017 Evaluation and management of inpatient [facility] Start: 07-01-2017 Ambulatory [facility] on Hospital Procedures Date Procedure Procedure [...] microscopy New Mcclure MD Work Phone: Start: 08-31-2022 Mammography Elie tucker DPM Work Phone: Start: 03-11-2021 Arthrocentesis aspir &/inj [...] Blood count complete auto&auto difrntl wbc [employer] Phone: Start: 11-21-2018 End: 11-21-2018 X-ray of left knee [employer] [employer] Phone: Start: 11-21-2018 End: 11-21-2018 Cell count misc body fluids w/differential count [employer] [facility] [employer] Phone: Start: 11-21-2018 End: 11-21-2018 Cul bact melissa aerobic isol xcpt ur blood/stool [employer] [facility] [employer] Phone: Start: 11-21-2018 End: 11-21-2018 Culture bacterial any source anaerobic iso&id [employer] [facility] [employer] Phone: Start: 11-21-2018 End: 11-21-2018 Culture fngi mold/yeast prsmptv oth xcpt blood [employer] [facility] [employer] Phone: Start: 11-21-2018 End: 11-21-2018 Culture tubercle/oth acid-fast bacilli any isol [facility] Phone: Start: 11-21-2018 End: 11-21-2018 REPEAT ABO/RH (D) TYPING [employer] [facility] [employer] Phone: Start: 11-21-2018 End: 11-21-2018 Cultyp nuc acid amp prb cult/isolate ea orgnism [facility] [employer] Phone: Start: 10-23-2018 End: 10-23-2018 Standard ECG [facility] Phone: Plan of Treatment Date Care Activity Detail Author Start: 05-03-2025 End: 05-03-2025 Patient encounter procedure 05/03/2025 10:00 AM EDT Office Visit [facility] [address] [place] [address] Ramon Barreto DO [address] [place] [address] [facility] Start: 12-01-2024 Potassium [Moles/vol ume] in Serum or Plasma POTASSIUM [facility] Start: 11-28-2024 End: 11-28-2024 Patient encounter procedure 11/28/2024 11:10 AM EST Office Visit [facility] [address] [facility] [place] [address] New Mcclure MD [address] [facility] [place] [address] [facility] Start: 11-03-2024 Potassium [Moles/vol ume] in Serum or Plasma POTASSIUM [facility] Start: 10-25-2024 End: 10-25-2024 Patient encounter procedure 10/25/2024 11:30 AM EST Procedure Visit [facility] [address] [address] [place] [phone] Magalie Kaufman, [address] [place], [place] [id number] [facility] [address] Start: 10-15-2024 End: 10-15-2024 Patient encounter procedure 10/15/2024 2:00 PM EST Office Visit [facility] [address] [facility] [place] [phone] Angel Montenegro, [address] [place] [address] [facility] Start: 09-06-2024 End: 09-06-2024 Patient encounter procedure 09/06/2024 2:40 PM EDT Procedure Visit [facility] [address] [facility] [address] [place] [phone] Elie Harper DPM [address] [facility] [address] [place] [address] [facility] Start: 08-16-2024 End: 08-16-2024 Patient encounter procedure 08/16/2024 11:40 AM EDT Office Visit [facility] [address] [place] [address] Elie Harper DPM [address] [facility] [address] [place] [address] Abscess of toe, right (Primary Dx); Acquired deformity of left toe [facility] Comment on above: Abscess of toe, righ t (Primary Dx); Acquired deformity of left toe Start: 07-08-2024 Influenza vaccination INFLUENZA VACC INE (#1) [facility] Start: 05-31-2024 End: 05-31-2024 Patient encounter procedure 05/31/2024 9:30 AM EDT Office Visit [facility] [address] [place] [phone] New Mcclure MD [address] [place] [address] [facility] Start: 04-27-2024 Potassium [Moles/vol ume] in Serum or Plasma POTASSIUM [facility] Start: 04-25-2024 End: 04-25-2024 Patient encounter procedure 04/25/2024 11:40 AM EDT Office Visit [facility] [address] [place] [address] Rajinder Green APRN-CARVING MACHINE OPERATOR [address] [place] [address] [facility] Start: 04-19-2024 End: 04-19-2024 Patient encounter procedure 04/19/2024 10:00 AM EDT Office Visit [facility] [address] [place] [address] New Mcclure MD [address] [place] [address] [facility] Start: 03-22-2024 End: 03-22-2024 Patient encounter procedure 03/22/2024 3:30 PM EDT Office Visit [facility] [address] [place] [address] New Mcclure MD [address] [place] [address] [facility] Start: 02-23-2024 End: 02-23-2024 Patient encounter procedure 02/23/2024 11:00 AM EDT Office Visit [facility] [address] [place] [phone] Rajinder Green, BUSINESS INSURANCE AGENT-CARVING MACHINE OPERATOR [address] [place] [address] [facility] Start: 11-29-2023 End: 11-29-2023 Evaluation and management of inpatient [facility] Comment on above: Failed total left kn ee replacement, initial encounter REVISION ARTHROPLAST Y KNEE Start: 11-29-2023 End: 11-29-2023 Revj tot knee arthrp fem&entire tibial compone REVISION ARTHROPLASTY KNEE Failed total left knee replacement, initial encounter 11/29/2023 10:00 AM EST [facility] Start: 11-03-2023 End: 12-05-2023 PREPARE TO TRANSFUSE RED BLOOD CELLS PREPARE TO TRANSFUSE RED BLOOD CELLS Blood Bank Routine Preop testing Expected: 11/03/2023, Expires: 12/05/2023 [facility] Work Phone: Comment on above: Expected: 11/03/2023 , Expires: 12/05/2023 Start: 09-01-2023 End: 09-01-2023 Patient encounter procedure 09/01/2023 1:00 PM EDT Office Visit [facility] [address] [place] [phone] New Mcclure MD [address] [place] [address] [facility] Start: 08-31-2023 Screening for malign ant neoplasm of breast Mammogram [facility] Start: 07-08-2023 COVID-19 VACCINE ( season) COVID-19 VACCINE ( season) [facility] Start: 07-08-2023 Influenza vaccination INFLUENZA VACC INE (#1) [facility] Start: 04-14-2023 End: 04-14-2023 ambulatory 04/14/2023 Pre-Operative Nurse Assessment Internal Medicine [facility] Pre Ad[facility] Start: 12-24-2022 COVID-19 VACCINE (5 - Pfizer series) COVID-19 VACCINE (5 - Pfizer series) [facility] Start: 07-08-2021 Influenza vaccination INFLUENZ A VACCINE (Season Ended) [facility] Start: 11-19-2020 End: 11-19-2020 Office Visit 11/19/2020 Office Visit New Lucas MD [address] [place] [address] [phone] [facility] Start: 11-24-2019 Potassium molar conc POTASSIUM [place] [facility] Work Phone: Start: 11-23-2019 Potassium molar conc POTASSIUM [place] [facility] Work Phone: Start: 11-22-2019 End: 11-22-2019 Office Visit 11/22/2019 Office Visit New Lucas MD [address] [place] [address] [phone] [facility] Start: 10-23-2019 Potassium molar conc POTASSIUM Av [facility] Start: 09-11-2019 Pneumococcal vaccination PNEUM OCOCCAL VACCINE SERIES (2 of 2 - PPSV23 or PCV20) [facility] Start: 09-11-2019 Pneumococcal Vaccine : 65+ Years (2 of 2 - PPSV23 or PCV20) Pneumococcal Vaccine: 65+ Years (2 of 2 - PPSV23 or PCV20) [facility] Start: 07-08-2019 [facility] Start: 04-18-2019 End: 04-18-2019 Office Visit 04/18/2019 Office Visit New Lucas MD [address] [place] [address] [phone] [facility] Start: 03-01-2019 End: 03-01-2019 Office Visit [facility] Comment on above: Arrived History of total kne e arthroplasty, left (Primary Dx) Start: 02-23-2019 End: 03-23-2019 X-ray of left knee XR KNEE LEFT 2 VIEWS Imaging Routine History of total knee arthroplasty, left Expected: 02/23/2019, Expires: 03/23/2019 [facility] Comment on above: Expected: 02/23/2019 , Expires: 03/23/2019 Start: 01-03-2019 End: 01-03-2019 Ambulatory 01/03/2019 Office Visit Orthopaedics New Mcclure MD [address] [place] [address] [phone] [facility] Start: 12-28-2018 End: 01-25-2019 X-ray of left knee XR KNEE LEFT 2 VIEWS Imaging Routine History of total knee arthroplasty, left Expected: 12/28/2018, Expires: 01/25/2019 [facility] Comment on above: Expected: 12/28/2018 , Expires: 01/25/2019 Start: 12-14-2018 End: 12-14-2018 Ambulatory [facility] Start: 11-21-2018 Ambulatory 11/21/2018 Pro cedure Pass [facility] Start: 11-21-[address] [facility] Comment on above: REVISION ARTHROPLAST Y KNEE - extensor mech reconstruction - left Extensor mechanism m alalignment Start: 10-23-2018 End: 10-23-2018 Ambulatory 10/23/2018 Pre-Operative Nurse Assessment Internal Medicine [facility] Pre Admission Start: 07-21-2018 Finding of potassium level (finding) POTASSIUM [facility] Work Phone: Start: 2018 Pneumococcal vaccination [facility] Start: 07-08-2018 Influenza vaccination INFLUENZA VACC INE (#1) [facility] Work Phone: Start: 2003 Colonoscopy [facility] Work Phone: Start: 2003 Protein mass conc COLON CANCER SCREENING DISCUSSION [facility] Work Phone: Start: 2003 Zoster vaccine hzv l damian for subcutaneous use ZOSTER (SHINGLES) VACCINE (1 of 2) [facility] Start: 1998 Screening for malign ant neoplasm of colon COLORECTAL CANCER SCREENING DISCUSSION [facility] Start: 1993 Fasting lipid profile LIPID SCREENIN G [facility] Work Phone: Start: 1993 Lipid panel LIPID SCREENING [facility] Start: 1993 Protein mass conc MAMMOGRAM SC REENING DISCUSSION [facility] Work Phone: Start: 1993 Screening for malign ant neoplasm of breast MAMMOGRAM SCREENING DISCUSSION [facility] Start: 1993 Screening mammography MAMMOGRA M SCREENING DISCUSSION [facility] Work Phone: Start: 1974 Screening for malign ant neoplasm of cervix [facility] Start: 1972 Third diphtheria, tetanus and acellular pertussis (DTaP) vaccination TDAP (ADULT) [facility] Start: 1971 Tetanus vaccination TETANUS [facility] Work Phone: Start: 1969 COVID-19 VACCINE (1) COVID-19 VACCIN E (1) [facility] Start: 1953 Hepatitis C screening HEPATITI S C VIRUS SCREENING [facility] Start: 1953 Screening for malign ant neoplasm of colon [facility] Start: 1953 Tetanus vaccination TETANUS [facility] Start: 1953 End: 1953 Hepatitis C antibody, confirmatory test HEPATITIS C VIRUS SCREENING [facility] Work Phone: Start: 1953 End: 1953 Screening for osteoporosis DEXA SCAN DISCUSSION [facility] ACID FAST CULTURE [facility] Work Phone: Comment on above: ONE TIME for 1 Occur rences starting 11/21/2018 ANAEROBE CULTURE [facility] Work Phone: Comment on above: ONE TIME for 1 Occur rences starting 11/21/2018 BACTERIAL CULTURE AN D DIRECT SMEAR, LESION, TISSUE, DEVICE BACTERIAL CULTURE AND DIRECT SMEAR, LESION, TISSUE, DEVICE Routine Extensor mechanism malalignment ONE TIME for 1 Occurrences starting 11/21/2018 [facility] Work Phone: Comment on above: ONE TIME for 1 Occur rences starting 11/21/2018 Basic metabolic 2000 panel - Serum or Plasma BASIC METABOLIC PANEL Routine Pre-op exam Ordered: 10/23/2018 [facility] Work Phone: Comment on above: Ordered: 10/23/2018 BODY FLUID CULTURE A ND DIRECT SMEAR BODY FLUID CULTURE AND DIRECT SMEAR Routine 11/21/2018 11:00 AM EST [facility] Work Phone: CBC, EDIF, PLATELET CBC, EDIF, P LATELET Routine Pre-op exam Ordered: 10/23/2018 [facility] Work Phone: Comment on above: Ordered: 10/23/2018 FUNGUS CULTURE [facility] Work Phone: Comment on above: ONE TIME for 1 Occur rences starting 11/21/2018 Hemoglobin A1c/Hemoglobin.total mass fraction (Bld) HEMOGLOBIN A1C Routine Pre-op exam Ordered: 10/23/2018 [facility] Work Phone: Comment on above: Ordered: 10/23/2018 LARGE JOINT INJECTIO N: R knee LARGE JOINT INJECTION: R knee Procedures Routine Right knee pain, unspecified chronicity 04/18/2019 4:00 PM EDT [employer] PROTIME-INR PROTIME-INR STAT Pre-op exam Ordered: 10/23/2018 [facility] Work Phone: Comment on above: Ordered: 10/23/2018 Radiography for bone length studies XR BONE LENGTH STUDY Imaging Routine Hx of total knee arthroplasty, right 09/01/2023 12:48 PM EDT [facility] Radiography for bone length studies XR BONE LENGTH STUDY Imaging Routine Hx of total knee arthroplasty, left Ordered: 02/21/2024 [employer] Comment on above: Ordered: 02/21/2024 Radiography of hip XR HIP WITH P NICOLAS RIGHT Imaging Routine Right hip pain 03/01/2019 2:59 PM EDT [employer] SCREEN: MRSA ONLY, N VIVI (ISOLATION SCREEN) SCREEN: MRSA ONLY, NARES (ISOLATION SCREEN) Routine Pre-op exam Ordered: 10/23/2018 [facility] Work Phone: Comment on above: Ordered: 10/23/2018 Standard ECG ECG Routine Pre- op exam 10/23/2018 8:53 AM [facility] Work Phone: TISSUE CULTURE TISSUE CULTURE R outine 11/21/2018 11:00 AM [facility] Work Phone: TYPE AND SCREEN - POSSIBLE TRANSFUSION TYPE AND SCREEN - POSSIBLE TRANSFUSION Routine Pre-op exam Ordered: 10/23/2018 [facility] Work Phone: Comment on above: Ordered: 10/23/2018 TYPE AND SCREEN - POSSIBLE TRANSFUSION TYPE AND SCREEN - POSSIBLE TRANSFUSION Blood Bank Today Preop testing 11/03/2023 9:50 AM EST [facility] URINALYSIS, MACRO URINALYSIS, MA MOSAIC LAYER Routine Pre-op exam Ordered: 10/23/2018 [facility] Work Phone: Comment on above: Ordered: 10/23/2018 X-ray of left knee [facility] Work Phone: End: 03-01-2019 X-ray of left knee XR KNEE LEFT 2 VIEWS Imaging Routine History of total knee arthroplasty, left 1 Occurrences starting 03/01/2019 until 03/01/2019 [employer] Comment on above: 1 Occurrences starti ng 03/01/2019 until 03/01/2019 XR Knee - left 2 Views XR KNEE L EFT 2 VIEWS Imaging Routine Left knee pain, unspecified chronicity 03/18/2023 11:12 AM EDT [facility] XR Knee - left 2 Views XR KNEE L EFT 1-2 VIEWS Imaging Routine Hx of total knee arthroplasty, left 12/22/2023 1:17 PM EST [facility] XR Knee - left 2 Views XR KNEE L EFT 1-2 VIEWS Imaging Routine Hx of total knee arthroplasty, left 02/23/2024 11:01 AM EDT [facility] XR Knee - left 2 Views XR KNEE L EFT 1-2 VIEWS Imaging Routine Pain in both knees, unspecified chronicity 03/22/2024 3:36 PM EDT [facility] Work Phone: XR Knee - left 2 Views XR KNEE L EFT 1-2 VIEWS Imaging Routine Pain in both knees, unspecified chronicity 04/19/2024 10:07 AM EDT [facility] XR Knee - left 2 Views XR KNEE L EFT 1-2 VIEWS Imaging Routine Pain in both knees, unspecified chronicity 05/31/2024 9:37 AM EDT [employer] XR Knee - left 3 Views XR KNEE L EFT 3 VIEWS Imaging Routine Hx of total knee arthroplasty, left 09/01/2023 12:48 PM [employer] Work Phone: XR Knee - right 2 Views XR KNEE RIGHT 2 VIEWS Imaging Routine Right knee pain, unspecified chronicity 03/18/2023 11:12 AM [employer] [facility] End: 01-12-2024 XR Knee - right 2 Views [employer] Work Phone: Comment on above: 1 Occurrences starti ng 01/12/2024 until 01/12/2024 End: 02-23-2024 XR Knee - right 2 Views [facility] Comment on above: 1 Occurrences starti ng 02/23/2024 until 02/23/2024 XR Knee - right 2 Views XR KNEE RIGHT 1-2 VIEWS Imaging Routine Pain in both knees, unspecified chronicity 03/22/2024 3:36 PM EDT [facility] XR Knee - right 2 Views XR KNEE RIGHT 1-2 VIEWS Imaging Routine Pain in both knees, unspecified chronicity 04/19/2024 10:07 AM [employer] Work Phone: XR Knee - right 2 Views XR KNEE RIGHT 1-2 VIEWS Imaging Routine Pain in both knees, unspecified chronicity 05/31/2024 9:37 AM EDT [employer] XR Knee - right 3 Views XR KNEE RIGHT 3 VIEWS Imaging Routine Hx of total knee arthroplasty, right 05/19/2023 2:33 PM [facility]T [facility] Work Phone: XR Knee - right 3 Views XR KNEE RIGHT 3 VIEWS Imaging Routine Hx of total knee arthroplasty, right 09/01/2023 12:48 PM EDT [facility] XR Knee - right 3 Views XR KNEE RIGHT 3 VIEWS Imaging Routine Right knee pain, unspecified chronicity Ordered: 01/09/2024 [facility] Comment on above: Ordered: 01/09/2024 Immunizations Immunization Date Immunization Notes Care Provider [facility] 08-25-2023 influenza virus vaccine, unspecified formulation New Mcclure MD Work Phone: [facility] 08-23-2022 influenza virus vaccine, unspecified formulation Rajinder Green APRN-CARVING MACHINE OPERATOR Work Phone: [facility] 09-11-2018 pneumococcal conjugate vaccine, 13 valent Elie Harper DPM Work Phone: [facility] 08-18-2015 influenza virus vaccine, unspecified formulation Richard Macdonald [facility] Work Phone: Payers Date Payer Category Payer Self-pay [id number] 2018 Unknown [id number] 2017 Medicare MEDICARE MEDICAR E A AND B xxxxxxxxxxx 2017-Present [place], [place] xxxxxxxxxxx [id number] 2017 Medicare MEDICARE MEDICAR E A AND B [id number] 2017-Present [place] [id number] .[id number] 2017 Medicare [id number] .[id number] 2017 Unknown ANTHEM ANTHEM TR ADITIONAL xxxxxxxxxxxx 2017-Present [id number] .[id number] 2017 Unknown ANTHEM ANTHEM TR ADITIONAL [id number] 2017-Present [id number] .7.3.030076.315 2017 Medicare [id number] 2.16.840.1.932418.19 1959 Blue Cross Blue Shield [id number] 2.16.840.1.941283.19 1953 Unknown [id number] 2.16.840.1.528011.3.579.2 .593 1953 Unknown [id number] 2.16.840.1.588772.3.579.2 .593 1953 Unknown [id number] 2.16.840.1.292215.3.579.2 .593 1953 Unknown [id number] 2.16.840.1.720778.3.579.2 .593 1953 Unknown [id number] 2.16.840.1.047605.3.579.2 .593 1953 Unknown [id number] 2.16.840.1.103849.3.579.2 .593 1953 Unknown [id number] 2.16.840.1.652359.3.579.2 .593 1953 Unknown [id number] 2.16.840.1.672374.3.579.2 .593 1953 Unknown [id number] 2.16.840.1.254843.3.579.2 .983 1953 Unknown [id number] 2.16.840.1.054432.3.579.2 .983 1953 Unknown [id number] 2.16.840.1.144844.3.579.2 .1953 Unknown [id number] 2.16.840.1.260960.3.579.2 .98 1953 Unknown [id number] 2.16.840.1.736921.3.579.2 .1953 Unknown [id number] 2.16.840.1.266665.3.579.2 .1953 Unknown [id number] 2.16.840.1.897493.3.579.2 .1953 Unknown [id number] 2.16.840.1.353949.3.579.2 .1953 Unknown [id number] 2.16.840.1.569407.3.579.2 .98 1953 Unknown [id number] 2.16.840.1.390984.3.579.2 .1953 Unknown [id number] 2.16.840.1.748881.3.579.2 .1953 Unknown [id number] 2.16.840.1.779300.3.579.2 .1953 Unknown [id number] 2.16.840.1.901060.3.579.2 .98 1953 Unknown [id number] 2.16.840.1.018419.3.579.2 .1953 Unknown [id number] 2.16.840.1.242294.3.579.2 .98 1953 Unknown [id number] 2.16.840.1.251699.3.579.2 .1953 Unknown [id number] 2.16.840.1.689388.3.579.2 .1259 1953 Unknown [id number] 2.16.840.1.318075.3.579.2 .1258 1953 Unknown [id number] 2.16.840.1.867778.3.579.2 .1258 1953 Unknown [id number] 2.16.840.1.379312.3.579.2 .1258 1953 Unknown [id number] 2.16.840.1.013225.3.579.2 .1258 1953 Unknown [id number] 2.16.840.1.460234.3.579.2 .1258 1953 Unknown [id number] 2.16.840.1.245730.3.579.2 .1258 1953 Unknown [id number] 2.16.840.1.574029.3.579.2 .1258 1953 Unknown [id number] 2.16.840.1.076749.3.579.2 .1259 Private Health Insurance [id number] Unknown [facility] [id number] Unknown [id number] 2.16.840.1.589071.3.579.2 .531 Social History Date Type Detail Facility Start: 10-23-2018 End: 07-13-2023 Tobacco smoking status INIS Never smoker [facility] Start: 1955 Sex Assigned At Not on file [facility] Work Phone: Start: 11-21-2019 End: 05-31-2024 Alcohol intake Current non-drinker of alcohol (finding) [employer] Start: 11-19-2020 End: 07-13-2023 Tobacco use and exposure Never used [facility] Start: 05-19-2023 End: 08-16-2024 Sex Assigned At [facility] Start: 05-19-2023 End: 08-16-2024 History of Social function [facility] Start: 03-30-2023 Gender identity Identifies as female gender (finding) [facility] Start: 04-16-2023 End: 04-26-2023 Exposure to SARS-CoV-2 (event) Not sure [facility] Start: 1955 Sex Assigned At Female [facility] Has the electric, [employer], [employer], or water company threatened to shut off services in your home in past 12Mo No [facility] (I/We) worried christie er (my/our) food would run out before (I/we) got money to buy more. Never true [facility] In the past 12 month s, has lack of transportation kept you from medical appointments or from getting medications? No [facility] Start: 08-02-2024 End: 08-16-2024 Alcoholic beverage intake [facility] Start: 04-24-2024 Alcohol Comment Caffeine: Current some days [facility] Start: 03-30-2023 Sexual orientation Heterosexual (finding) [facility] Medical Equipment Procedure Code Equipment Code Equipment Origin al Text Equipment Identifier Dates Prolite Mesh 25. 4 Cm X 35.5cm Start: 11-21-2018 Palacos R 1x40 S nacho - [id number] Start: 11-21-2018 Prolite Mesh 25. 4 Cm X 35.5cm Start: 11-21-2018 Palacos R 1x40 S nacho - [id number] Start: 11-21-2018 Prolite Mesh 25. 4 Cm X 35.5cm Start: 11-21-2018 Palacos R 1x40 S nacho - [id number] Start: 11-21-2018 Prolite Mesh 25. 4 Cm X 35.5cm Start: 11-21-2018 Palacos R 1x40 S nacho - [id number] Start: 11-21-2018 Prolite Mesh 25. 4 Cm X 35.5cm Start: 11-21-2018 Prolite Mesh 25. 4 Cm X 35.5cm Start: 11-21-2018 Palacos R 1x40 S nacho - [id number] Start: 11-21-2018 Palacos R 1x40 S nacho - [id number] Start: 11-21-2018 Prolite Mesh 25. 4 Cm X 35.5cm Start: 11-21-2018 Prolite Mesh 25. 4 Cm X 35.5cm Start: 11-21-2018 Palacos R 1x40 S nacho - [id number] Start: 11-21-2018 Palacos R 1x40 S nacho - [id number] Start: 11-21-2018 Prolite Mesh 25. 4 Cm X 35.5cm Start: 11-21-2018 Prolite Mesh 25. 4 Cm X 35.5cm Start: 11-21-2018 Palacos R 1x40 S nacho - [id number] Start: 11-21-2018 Palacos R 1x40 S nacho - [id number] Start: 11-21-2018 Prolite Mesh 25. 4 Cm X 35.5cm Start: 11-21-2018 Prolite Mesh 25. 4 Cm X 35.5cm Start: 11-21-2018 Palacos R 1x40 S nacho - [id number] Start: 11-21-2018 Palacos R 1x40 S nacho - [id number] Start: 11-21-2018 Prolite Mesh 25. 4 Cm X 35.5cm Start: 11-21-2018 Prolite Mesh 25. 4 Cm X 35.5cm Start: 11-21-2018 Palacos R 1x40 S nacho - [id number] Start: 11-21-2018 [place] R 1x40 S nacho - [id number] Start: 11-21-2018 Prolite Mesh 25. 4 Cm X 35.5cm Start: 11-21-2018 Prolite Mesh 25. 4 Cm X 35.5cm Start: 11-21-2018 [place]os R 1x40 S nacho - [id number] Start: 11-21-2018 [place] R 1x40 S nacho - [id number] Start: 11-21-2018 Prolite Mesh 25. 4 Cm X 35.5cm Start: 11-21-2018 Prolite Mesh 25. 4 Cm X 35.5cm Start: 11-21-2018 [place]acos R 1x40 S nacho - [id number] Start: 11-21-2018 [place]os R 1x40 S nacho - [id number] Start: 11-21-2018 Prolite Mesh 25. 4 Cm X 35.5cm [id number] Start: 11-21-2018 Palacos R 1x40 S nacho - [id number] Start: 11-21-2018 Prolite Mesh 25. 4 Cm X 35.5cm Start: 11-21-2018 Prolite Mesh 25. 4 Cm X 35.5cm Start: 11-21-2018 [place] R 1x40 S nacho - [id number] Start: 11-21-2018 [place]os R 1x40 S nacho - [id number] Start: 11-21-2018 Prolite Mesh 25. 4 Cm X 35.5cm Start: 11-21-2018 [place] R 1x40 S nacho - [id number] Start: 11-21-2018 Prolite Mesh 25. 4 Cm X 35.5cm Start: 11-21-2018 Prolite Mesh 25. 4 Cm X 35.5cm Start: 11-21-2018 [place]os R 1x40 S nacho - [id number] Start: 11-21-2018 [place]os R 1x40 S nacho - [id number] Start: 11-21-2018 Attune Tibial In sert Fixed [...] Palacos R+G 1x40 Single With Gentamicin - [id number] Start: 11-29-2023 Palacos R 1 X 40 Us - [id number] Start: 04-26-2023 Attune Knee Syst em Revision Tibial Base Fixed Bearing [id number] Start: 04-26-2023 Attune Femoral Posterior Stabilized [id number] Start: 04-26-2023 Attune Patella Medialized Dome [id number] Start: 04-26-2023 [place] Cancell ous Bone Screw [id number] Start: 04-26-2023 Attune Knee Syst em Revision Pressfit Stem [id number] Start: 11-29-2023 Palacos R & G Scott ne Cement High-Viscosity With Gentamicin - [id number] Start: 11-29-2023 Attune Knee Syst em Revision Crs Rotating Platform Insert [id number] Start: 11-29-2023 Clinical Notes 03-11-2021 to 08-16-2024 Elie Harper DPM - 08/16/2024 11:40 AM Hernan Garcia ATC - 05/31/2024 9:30 AM Gokul Mcclure MD - 05/31/2024 9:30 AM Radha Coleman - 04/19/2024 10:00 AM EDTPatient Instructions Note Date & Type Note Facility 08-16-2024 History of Presen t illness Narrative Patient: Danyelle Erickson Aries : 1955 PCP: Yulisa Batres MD SUBJECTIVE Patient presents today 14 days postop medial right hallux total temporary nail avulsion with I&D secondary to prior avulsion 28 d ago. Patient denies nausea fever vomiting chills and has been taking oral antibiotics and states negative drainage from the right hallux Patient also complains of pain to the left 3rd digit due to hammertoe type deformity and has been seen in the past with discussion of possible surgical intervention by her aircraft log clerk who has since retired. She states diminished callus to the end of the toe and states that she rates pain a 3 /10. Patient has had revisional knee sx in the recent past. Allergies: Allergies Allergen Reactions Gabapentin (Once-Daily) Other Reaction(s): Allergy, Blistered Skin, Blisters, Not available Caused the skin on her lips to peel and nervousness Alendronate Rash Other Reaction(s): Abdominal Discomfort, Dyspepsia, Indigestion, Not available Gabapentin Nausea And Vomiting, Nausea Only and Rash Other Reaction(s): Not available Oxcarbazepine Nausea And Vomiting and Rash Other Reaction(s): Confusion, Not available Levofloxacin Tendon rupture Sulfamethoxazole-Trimethoprim Other Reaction(s): Joint pain, Muscle weakness, Myalgia Past Medical History: Past Medical History: Diagnosis Date Arthritis Backache Blepharospasm Cataract Closed fracture of patella Degenerative disc disease, lumbar Disturbance of skin sensation Dizziness Dry eyes Facet arthritis of lumbar region Facial weakness Fibromyalgia Hemifacial spasm History of transfusion Hypertension ([facility] Muscle spasm Osteopenia Peripheral neuropathy Polyneuropathy PVD (peripheral vascular disease) ([facility]) Radiculopathy, lumbosacral region Small fiber neuropathy Spinal stenosis excluding cervical region lumbar region, without neurogenic claudication Spondylolisthesis Trigeminal neuralgia ([facility]) Medications: Current Outpatient Medications: acetaminophen (Tylenol 8 Hour) 650 MG ER tablet, Take 1-2 tablets by mouth 2 (two) times a day as needed for mild pain or moderate pain Do not crush, chew, or split., Disp: , Rfl: amoxicillin (Amoxil) 500 MG capsule, 4 capsules Orally before any dental procedure, Disp: , Rfl: ascorbic acid (Vitamin C) 500 MG tablet, Take 500 mg by mouth in the morning., Disp: , Rfl: biotin 1 MG capsule, Take by mouth Daily, Disp: , Rfl: Calcium Carb-Cholecalciferol (Oyster Shell Calcium w/D) 500-5 MG-MCG tablet, Take by mouth Daily, Disp: , Rfl: Calcium-Vitamin D-Vitamin K (Calcium + D) 500-1000-40 MG-UNT-MCG chewable tablet, 1 (one) time each day at the same time., Disp: , Rfl: carvedilol (Coreg) 25 MG tablet, Take 25 mg by mouth in the morning and 25 mg in the evening. Take with meals., Disp: , Rfl: clindamycin (Cleocin) 300 MG capsule, Take 1 capsule (300 mg) by mouth in the morning and 1 capsule (300 mg) in the evening and 1 capsule (300 mg) before bedtime. Do all this for 10 days., Disp: 30 capsule, Rfl: 0 diclofenac sodium 1 % gel, External for 19 Days, Disp: , Rfl: doxazosin (Cardura) 4 MG tablet, Take 4 mg by mouth 1 (one) time each day at the same time, Disp: , Rfl: folic acid (Folvite) 1 MG tablet, Take 1,000 mcg by mouth in the morning., Disp: , Rfl: Khkbtwpudnk-Wjvfhhipo-Xgu C-Mn (Glucosamine 1500 Complex) capsule, as directed Orally, Disp: , Rfl: hydroxychloroquine (Plaquenil) 200 MG tablet, Take 200 mg by mouth in the morning and 200 mg before bedtime., Disp: , Rfl: ibandronate (Boniva) 150 MG tablet, Take 150 mg by mouth every 30 (thirty) days, Disp: , Rfl: leflunomide (Arava) 20 MG tablet, Take 20 mg by mouth Daily, Disp: , Rfl: lisinopril 40 MG tablet, Take 40 mg by mouth in the morning., Disp: , Rfl: methotrexate 2.5 MG tablet, Take 12.5 mg by mouth 1 (one) time per week., Disp: , Rfl: methylPREDNISolone (Medrol Dospak) 4 MG tablets, TAKE DIRECTED, Disp: , Rfl: pantoprazole (ProtoNix) 40 MG EC tablet, Take 40 mg by mouth in the morning. Take before meals., Disp: , Rfl: predniSONE (Deltasone) 5 MG tablet, Take 5 mg by mouth As directed, Disp: , Rfl: pregabalin (Lyrica) 25 MG capsule, Take 1 capsule (25 mg) by mouth in the morning and 1 capsule (25 mg) before bedtime., Disp: 60 capsule, Rfl: 2 tiZANidine (Zanaflex) 4 MG tablet, Take 4 mg by mouth every 6 (six) hours if needed., Disp: , Rfl: traMADol (Ultram) 50 MG tablet, Take 50 mg by mouth 3 (three) times a day as needed for moderate pain or severe pain, Disp: , Rfl: triamterene-hydrochlorothiazide (Maxzide-25) 37.5-25 MG tablet, Take 1 tablet by mouth Daily, Disp: , Rfl: Turmeric 500 MG capsule, as directed Orally, Disp: , Rfl: Social History: Social History Socioeconomic History Marital status: Never Spouse name: Not on file Number of children: Not on file Years of education: Not on file Highest education level: Not on file Occupational History Not on file Tobacco Use Smoking status: Never Smokeless tobacco: Never Vaping Use Vaping status: Unknown Substance and Sexual Activity Alcohol use: Defer Comment: Caffeine: Current some days Drug use: Defer Sexual activity: Defer Other Topics Concern Not on file Social History Narrative Not on file Social Determinants of Health Financial Resource Strain: Not on file Food Insecurity: No Food Insecurity (11/29/2023) [facility] Hunger Vital Sign Worried About Running Out of Food in the Last Year: Never true Ran Out of Food in the Last Year: Never true Transportation Needs: No Transportation Needs (11/29/2023) Received from [facility], [facility] PRAPARE - Transportation Lack of Transportation (Medical): No Lack of Transportation (Non-Medical): No Physical Activity: Not on file Stress: Not on file Social Connections: Not on file Intimate Partner Violence: Not on file Housing Stability: Low Risk (11/29/2023) Received from [facility], [facility] Housing Stability Vital Sign Unable to Pay for Housing in the Last Year: No Number of Places Lived in the Last Year: 1 Unstable Housing in the Last Year: No ROS: GI: denies loose or watery stool on antibiotic Musculoskeletal: Positive generalized arthritis to joints and denies loss of strength. Positive history of total knee replacement and back surgery in the past OBJECTIVE LE EXAM: DERM: Elongated thick yellow crumbly nails digits 1 through 10. Diminished hair growth b/l feet. Rubor noted to the left 3rd digit PIPJ region with hyperkeratotic lesion to distal digit Medial right hallux has negative drainage with negative erythema to the right hallux. VASC: Positive palpable pedal pulses bilaterally NEURO: Gross sensation intact to bilateral feet ORTHO: Positive pain on palpation to nails 1 through 10 Left 3rd flexion deformity of toe that is non reducible Negative pain on palpation to the right hallux ASSESSMENT 1. Abscess of toe, right 2. Acquired deformity of left toe PLAN Patient to continue with oral anti - inflammatories as needed for pain and recommended OTC medications such as tylenol or Ibuprofen Continue and finish oral abx. Elie Harper DPM documented in this encounter [facility] 05-31-2024 History of Presen t illness Narrative Ortho Nurse - Established Patient Intake Room#: 2 Patient is a 68 year old female reporting with her sister for a 4-6 week follow up. Last visit Dr. Mcclure was pleased with her progression and stated she could weight bear as tolerated and continue with PT. She may remove brace and use as needed and stop using Eliquis. Today she states her pain is at a 1/10 and she uses Tramadol and Tylenol to keepthe pain managed. Pain can get to a 3/10 at PT. L>R. Patient is concerned with a few things, she is noticing left knee valgus when walking, she is also stating that the left foot is swelling quite a bit. When taking a step with left foot she will intermittenly joshua or just notice that her foot rests in that posotion while sitting. Patient reports both knees giving out or instability, frequently. It can happen when walking or sitting down. Date: 05/31/2024 9:39 AM Patient: Danyelle Haskins MR#: [id number] : 1955 Age: 68 y.o. Referring Physician: Self, Self Insurance: Payor: MEDICARE / Plan: MEDICARE A AND B / Product Type: *No Product type* / Chief Complaint Patient presents with Left Knee - Follow-up Right Knee - Follow-up There were no vitals taken for this visit. Pain Recent Labs No results found for: CRP No results found for: SEDRATE Lab Results Component Value Date WBC 3.6 12/02/2023 HGB 9.2 (L) 12/02/2023 HCT 27.6 (L) 12/02/2023 PLATELET 165 12/02/2023 MCV 102.5 (H) 12/02/2023 History Past Medical History: Diagnosis Date Pneumonia 2010 Active advance directive Living Will and Health Care POA Anemia Fe deficiency 30 years ago Ankle swelling bilateral Arthritis Back pain Connective tissue disease non-specific Depression Easy bruising Essential hypertension, benign Insomnia Joint pain Leg pain sciatica radiating to right posterior leg to knee Muscle weakness arms and legs; uses cane or walker for ambulation 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 Numbness feet Osteoarthritis RSD (reflex sympathetic dystrophy) Swelling of multiple joints L knee and right hip Ulcer gastric Use of cane as ambulatory aid Past Surgical History: Procedure Laterality Date REVISION ARTHROPLASTY KNEE Left 11/29/2023 Laterality: Left; Surgeon: New Mcclure MD; Location: [facility] ARTHROPLASTY KNEE TOTAL Right 04/26/2023 Laterality: Right; Surgeon: New Mcclure MD; Location: [facility] REVISION ARTHROPLASTY KNEE Left 11/21/2018 Laterality: Left; Surgeon: New Mcclure MD; Location: [facility] EXTRACTION EXTRACAPSULAR CATARACT W/ IMPLANT (ECCE IOL) Bilateral 2017 [facility] TREATMENT OPEN PATELLAR FX W/ INTERNAL [...] needed for Mild Pain. 50 tablet 1 Alpha-Lipoic Acid 200 MG capsule 1 capsule daily. (Patient not taking: Reported on 04/19/2024) amoxicillin 250 MG capsule Take 2 capsules by mouth every 8 hours. 4 capsules 1 hour before procedure Amoxicillin 500 MG capsule Take 4 capsules 1 hour before procedure 8 capsule 1 apixaban 2.5 MG tablet Take 1 tablet by mouth every 12 hours. This medication is for blood clot prevention 70 tablet 0 Ascorbic acid 500 MG tablet Take 1 tablet by mouth daily. Biotin 1 MG capsule Take by mouth daily. (Patient not taking: Reported on 04/19/2024) carveDILOL 25 MG tablet Take 1 tablet by mouth 2 times daily. Diclofenac Sodium 1 % Gel gel Diclofenac Diclofenac Sodium Active 4 GM Topical Four times daily October 01, 2020 10:38am 10-01-2020 [facility] ([id number]) Docusate 100 MG capsule Take 1 capsule by mouth 2 times daily. 60 capsule 0 Doxazosin 4 MG tablet Take 1 tablet by mouth daily. Folic acid 1 MG tablet Take 1 tablet by mouth daily. Lphfdhbqmek-Tgjdpjktp-Wrx C-Mn (Glucosamine 1500 Complex) capsule Take by mouth daily. Hydroxychloroquine 200 MG tablet Take 1 tablet by mouth 2 times daily. ibandronate 150 MG Tab Take 1 tablet by mouth every 30 days. Leflunomide 20 MG tablet Take 1 tablet by mouth daily. lisinopril 40 MG tablet Take 1 tablet by mouth daily. Meloxicam 7.5 MG tablet Take 1 tablet by mouth daily. Take with food. 30 tablet 0 methotrexate 2.5 MG tablet every 7 days. methylPREDNIsolone 4 MG Tab Therapy Pack tablet as needed. oxyCODONE 5 MG tablet Take 1-2 tabs po q 4-6 hours prn pain. Wean as tolerated. 30 tablet 0 Oyster Shell Calcium w/D 500-5 MG-MCG tablet Take by mouth daily. pantoprazole [address] Take 1 tablet by mouth every evening at 6 PM. predniSONE 5 MG tablet Take 1 tablet by mouth as needed (for flair up of whole body). pregabalin 25 MG capsule every 12 hours. Sucralfate 1 g tablet Take 1 tablet by mouth 2 times daily. (Patient not taking: Reported on 04/19/2024) 60 tablet 0 therapeutic multivitamin-minerals tablet Take 1 tablet by mouth at bedtime. 30 tablet 0 tiZANidine 4 MG tablet Take 1 tablet by mouth every 6 hours as needed for Muscle spasms. traMADol 50 MG tablet Take 1 tablet by mouth 3 times daily as needed for Pain. triamterene-hydrochlorothiazide 37.5-25 MG Cap Take 1 capsule by mouth as needed (edema). TURMERIC PO as directed Orally No facility-administered medications prior to visit. Current Outpatient Medications: Acetaminophen 325 MG tablet, Take 2 tablets by mouth every 4 hours as needed for Mild Pain., Disp: 50 tablet, Rfl: 1 Alpha-Lipoic Acid 200 MG capsule, 1 capsule daily. (Patient not taking: Reported on 04/19/2024), Disp: , Rfl: amoxicillin 250 MG capsule, Take 2 capsules by mouth every 8 hours. 4 capsules 1 hour before procedure, Disp: , Rfl: Amoxicillin 500 MG capsule, Take 4 capsules 1 hour before procedure, Disp: 8 capsule, Rfl: 1 apixaban 2.5 MG tablet, Take 1 tablet by mouth every 12 hours. This medication is for blood clot prevention, Disp: 70 tablet, Rfl: 0 Ascorbic acid 500 MG tablet, Take 1 tablet by mouth daily., Disp: , Rfl: Biotin 1 MG capsule, Take by mouth daily. (Patient not taking: Reported on 04/19/2024), Disp: , Rfl: carveDILOL 25 MG tablet, Take 1 tablet by mouth 2 times daily., Disp: , Rfl: Diclofenac Sodium 1 % Gel gel, Diclofenac Diclofenac Sodium Active 4 GM Topical Four times daily October 01, 2020 10:38am 10-01-2020 [facility] ([id number]), Disp: , Rfl: Docusate 100 MG capsule, Take 1 capsule by mouth 2 times daily., Disp: 60 capsule, Rfl: 0 Doxazosin 4 MG tablet, Take 1 tablet by mouth daily., Disp: , Rfl: Folic acid 1 MG tablet, Take 1 tablet by mouth daily., Disp: , Rfl: Wnxaqjukcbo-Izssaywbe-Iiv C-Mn (Glucosamine 1500 Complex) capsule, Take by mouth daily., Disp: , Rfl: Hydroxychloroquine 200 MG tablet, Take 1 tablet by mouth 2 times daily., Disp: , Rfl: ibandronate 150 MG Tab, Take 1 tablet by mouth every 30 days., Disp: , Rfl: Leflunomide 20 MG tablet, Take 1 tablet by mouth daily., Disp: , Rfl: lisinopril 40 MG tablet, Take 1 tablet by mouth daily., Disp: , Rfl: Meloxicam 7.5 MG tablet, Take 1 tablet by mouth daily. Take with food., Disp: 30 tablet, Rfl: 0 methotrexate 2.5 MG tablet, every 7 days., Disp: , Rfl: methylPREDNIsolone 4 MG Tab Therapy Pack tablet, as needed., Disp: , Rfl: oxyCODONE 5 MG tablet, Take 1-2 tabs po q 4-6 hours prn pain. Wean as tolerated., Disp: 30 tablet, Rfl: 0 Oyster Shell Calcium w/D 500-5 MG-MCG tablet, Take by mouth daily., Disp: , Rfl: pantoprazole [address], Take 1 tablet by mouth every evening at 6 PM., Disp: , Rfl: predniSONE 5 MG tablet, Take 1 tablet by mouth as needed (for flair up of whole body)., Disp: , Rfl: pregabalin 25 MG capsule, every 12 hours., Disp: , Rfl: Sucralfate 1 g tablet, Take 1 tablet by mouth 2 times daily. (Patient not taking: Reported on 04/19/2024), Disp: 60 tablet, Rfl: 0 therapeutic multivitamin-minerals tablet, Take 1 tablet by mouth at bedtime., Disp: 30 tablet, Rfl: 0 tiZANidine 4 MG tablet, Take 1 tablet by mouth every 6 hours as needed for Muscle spasms., Disp: , Rfl: traMADol 50 MG tablet, Take 1 tablet by mouth 3 times daily as needed for Pain., Disp: , Rfl: triamterene-hydrochlorothiazide 37.5-25 MG Cap, Take 1 capsule by mouth as needed (edema)., Disp: , Rfl: TURMERIC PO, as directed Orally, Disp: , Rfl: Allergies: She is allergic to ciprofloxacin, gralise [gabapentin (once-daily)], alendronate, gabapentin, oxcarbazepine, bactrim [sulfamethoxazole-trimethoprim], levofloxacin, sulfamethoxazole, and trimethoprim. HPI: Danyelle is an established patient of [facility]. She is here today for a 6 week follow up. She is now about 26 weeks out from left knee extensor mechanism reconstruction with mesh and about 20 weeks out from right knee periprosthetic patellar fracture. Denies pain and feels she is progressing nicely overall. Her pain is a 3 on a 10 point pain scale today. PHYSICAL EXAM: The bilateral lower extremities were evaluated. The operative lower extremity is soft, nontender, no pain, no impingement. No instability. Incision is well healed. Left knee has demonstration of full active extension and is also able to maintain active extension of the right knee of 7 degrees , has good strength against resistance and feels palpably stable. Both extremities have normal neurovascular status. IMAGING: Plain film radiographs reviewed. Multiple views of the knees demonstrate a left knee revision with extensor mechanism repair in good position and alignment as well as right knee arthroplasty in place with evidence of periprosthetic displaced patella fracture in unchanged position and alignment. IMPRESSION: 1.) History of left knee instability, status post revision, history of multiple left knee extensor reconstruction with mesh allograft. 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 PLAN: I reviewed my findings with Danyelle. We discussed the diagnosis, radiographs, physical exam findings and treatment options. Overall, I'm so pleased with her progression and her ability to actively maintain active extension of both legs. Encouraged slow and steady advancement to achieve full function of legs. We will print out a script for formal PT. She will follow up in 4-5 months or sooner if symptoms should worsen. All questions were answered to her satisfaction. I have reviewed the findings of my clinical staff below and agree with their assessment. Vitals: 05/31/24 0944 Temp: 97.5 degrees F (36.4 degrees C) TempSrc: Temporal Weight: 107.4 kg (236 lb 12.8 oz) Height: 1.702 m (5' 7 ) Pain Presence of Pain: reports pain/discomfort Select Pain Scale: DVPRS (Defense and Veterans Pain Rating Scale) (Adult-Cognitively Intact) Select Pain Scale: DVPRS (Defense and Veterans Pain Rating Scale) (Adult-Cognitively Intact) Factors That Aggravate Pain: activity Recent Labs No results found for: CRP No results found for: SEDRATE Lab Results Component Value Date WBC 3.6 12/02/2023 HGB 9.2 (L) 12/02/2023 HCT 27.6 (L) 12/02/2023 PLATELET 165 12/02/2023 MCV 102.5 (H) 12/02/2023 Past Medical History: Diagnosis Date Active advance directive Living Will and Health Care POA Anemia Fe deficiency 30 years ago Ankle swelling bilateral Arthritis Back pain Connective tissue disease non-specific Depression Easy bruising Essential hypertension, benign Insomnia Joint pain Leg pain sciatica radiating to right posterior leg to knee Muscle weakness arms and legs; uses cane or walker for ambulation 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 Numbness feet Osteoarthritis Pneumonia 2011 RSD (reflex sympathetic dystrophy) Swelling of multiple joints L knee and right hip Ulcer gastric Use of cane as ambulatory aid Past Surgical History: Procedure Laterality Date REVISION ARTHROPLASTY KNEE Left 11/29/2023 Laterality: Left; Surgeon: New Mcclure MD; Location: [facility] ARTHROPLASTY KNEE TOTAL Right 04/26/2023 Laterality: Right; Surgeon: New Mcclure MD; Location: [facility] REVISION ARTHROPLASTY KNEE Left 11/21/2018 Laterality: Left; Surgeon: New Mcclure MD; Location: [facility] EXTRACTION EXTRACAPSULAR CATARACT W/ IMPLANT (ECCE IOL) Bilateral 2017 [facility] TREATMENT OPEN PATELLAR FX W/ INTERNAL [...] ablation OTHER SURGICAL joint replacement TONSILLECTOMY Family History Problem Relation Age of Onset Heart Disease - Other Mother Bleeding or Clotting Problems Mother blood clots Hypertension Mother Cancer Father Cancer Sister Diabetes Sister Social History Socioeconomic History Marital status: Single Tobacco Use Smoking status: Never Smokeless tobacco: Never Vaping Use Vaping status: Never Used Substance and Sexual Activity Alcohol use: No Drug use: No Social Determinants of Health Food Insecurity: No Food Insecurity (11/29/2023) Hunger Vital Sign Worried About Running Out of Food in the Last Year: Never true Ran Out of Food in the Last Year: Never true Transportation Needs: No Transportation Needs (11/29/2023) PRAPARE - Transportation Lack of Transportation (Medical): No Lack of Transportation (Non-Medical): No Intimate Partner Violence: Not At Risk (11/29/2023) Humiliation, Afraid, Rape, and Kick questionnaire Fear of Current or Ex-Partner: No Emotionally Abused: No Physically Abused: No Sexually Abused: No Housing Stability: Low Risk (11/29/2023) Housing Stability Vital Sign Unable to Pay for Housing in the Last Year: No Number of Places Lived in the Last Year: 1 Unstable Housing in the Last Year: No Current Outpatient Medications: Acetaminophen 325 MG tablet, Take 2 tablets by mouth every 4 hours as needed for Mild Pain., Disp: 50 tablet, Rfl: 1 Alpha-Lipoic Acid 200 MG capsule, 1 capsule daily., Disp: , Rfl: amoxicillin 250 MG capsule, Take 2 capsules by mouth every 8 hours. 4 capsules 1 hour before procedure, Disp: , Rfl: Amoxicillin 500 MG capsule, Take 4 capsules 1 hour before procedure, Disp: 8 capsule, Rfl: 1 Ascorbic acid 500 MG tablet, Take 1 tablet by mouth daily., Disp: , Rfl: Biotin 1 MG capsule, Take by mouth daily., Disp: , Rfl: carveDILOL 25 MG tablet, Take 1 tablet by mouth 2 times daily., Disp: , Rfl: Diclofenac Sodium 1 % Gel gel, Diclofenac Diclofenac Sodium Active 4 GM Topical Four times daily October 01, 2020 10:38am 10-01-2020 [facility] ([id number]), Disp: , Rfl: Docusate 100 MG capsule, Take 1 capsule by mouth 2 times daily., Disp: 60 capsule, Rfl: 0 Doxazosin 4 MG tablet, Take 1 tablet by mouth daily., Disp: , Rfl: Folic acid 1 MG tablet, Take 1 tablet by mouth daily., Disp: , Rfl: Atxkiagmavz-Nmayhkwnz-Ues C-Mn (Glucosamine 1500 Complex) capsule, Take by mouth daily., Disp: , Rfl: Hydroxychloroquine 200 MG tablet, Take 1 tablet by mouth 2 times daily., Disp: , Rfl: ibandronate 150 MG Tab, Take 1 tablet by mouth every 30 days., Disp: , Rfl: Leflunomide 20 MG tablet, Take 1 tablet by mouth daily., Disp: , Rfl: lisinopril 40 MG tablet, Take 1 tablet by mouth daily., Disp: , Rfl: Meloxicam 7.5 MG tablet, Take 1 tablet by mouth daily. Take with food., Disp: 30 tablet, Rfl: 0 methotrexate 2.5 MG tablet, every 7 days., Disp: , Rfl: methylPREDNIsolone 4 MG Tab Therapy Pack tablet, as needed., Disp: , Rfl: Oyster Shell Calcium w/D 500-5 MG-MCG tablet, Take by mouth daily., Disp: , Rfl: pantoprazole [address], Take 1 tablet by mouth every evening at 6 PM., Disp: , Rfl: predniSONE 5 MG tablet, Take 1 tablet by mouth as needed (for flair up of whole body)., Disp: , Rfl: pregabalin 25 MG capsule, every 12 hours., Disp: , Rfl: Sucralfate 1 g tablet, Take 1 tablet by mouth 2 times daily., Disp: 60 tablet, Rfl: 0 therapeutic multivitamin-minerals tablet, Take 1 tablet by mouth at bedtime., Disp: 30 tablet, Rfl: 0 tiZANidine 4 MG tablet, Take 1 tablet by mouth every 6 hours as needed for Muscle spasms., Disp: , Rfl: traMADol 50 MG tablet, Take 1 tablet by mouth 3 times daily as needed for Pain., Disp: , Rfl: triamterene-hydrochlorothiazide 37.5-25 MG Cap, Take 1 capsule by mouth as needed (edema)., Disp: , Rfl: TURMERIC PO, as directed Orally, Disp: , Rfl: apixaban 2.5 MG tablet, Take 1 tablet by mouth every 12 hours. This medication is for blood clot prevention, Disp: 70 tablet, Rfl: 0 oxyCODONE 5 MG tablet, Take 1-2 tabs po q 4-6 hours prn pain. Wean as tolerated., Disp: 30 tablet, Rfl: 0 Allergies Allergen Reactions Ciprofloxacin Other reaction(s): Allergy critical , tendon rupture Gralise [Gabapentin (Once-Daily)] Blisters Caused the skin on her lips to peel and nervousness Alendronate Abdominal Discomfort and Dyspepsia Gabapentin Nausea and Vomiting Oxcarbazepine Nausea and Vomiting Bactrim [Sulfamethoxazole-Trimethoprim] Myalgia Levofloxacin Tendon rupture Sulfamethoxazole Weakness Trimethoprim Weakness documented in this encounter [facility] 04-19-2024 History of Presen t illness Narrative Ortho Nurse - Established Patient Intake Room#: 2 Pt is here for B/L knee. Pt is not in any pain. No falls, or injury's. Date: 04/19/2024 10:14 AM Patient: Danyelle Haskins MR#: [id number] : 1955 Age: 68 y.o. Referring Physician: Self, Self Insurance: Payor: MEDICARE / Plan: MEDICARE A AND B / Product Type: *No Product type* / Chief Complaint Patient presents with Left Knee - Follow-up Right Knee - Follow-up There were no vitals taken for this visit. Pain Recent Labs No results found for: CRP No results found for: SEDRATE Lab Results Component Value Date WBC 3.6 12/02/2023 HGB 9.2 (L) 12/02/2023 HCT 27.6 (L) 12/02/2023 PLATELET 165 12/02/2023 MCV 102.5 (H) 12/02/2023 History Past Medical History: Diagnosis Date Pneumonia 2010 Active advance directive Living Will and Health Care POA Anemia Fe deficiency 30 years ago Ankle swelling bilateral Arthritis Back pain Connective tissue disease non-specific Depression Easy bruising Essential hypertension, benign Insomnia Joint pain Leg pain sciatica radiating to right posterior leg to knee Muscle weakness arms and legs; uses cane or walker for ambulation 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 Numbness feet Osteoarthritis RSD (reflex sympathetic dystrophy) Swelling of multiple joints L knee and right hip Ulcer gastric Use of cane as ambulatory aid Past Surgical History: Procedure Laterality Date REVISION ARTHROPLASTY KNEE Left 11/29/2023 Laterality: Left; Surgeon: New Mcclure MD; Location: [facility] ARTHROPLASTY KNEE TOTAL Right 04/26/2023 Laterality: Right; Surgeon: New Mcclure MD; Location: [facility] REVISION ARTHROPLASTY KNEE Left 11/21/2018 Laterality: Left; Surgeon: New Mcclure MD; Location: [facility] EXTRACTION EXTRACAPSULAR CATARACT W/ IMPLANT (ECCE IOL) Bilateral 2018 [facility] TREATMENT OPEN PATELLAR FX W/ INTERNAL [...] needed for Mild Pain. 50 tablet 1 amoxicillin 250 MG capsule Take 2 capsules by mouth every 8 hours. 4 capsules 1 hour before procedure Amoxicillin 500 MG capsule Take 4 capsules 1 hour before procedure 8 capsule 1 Ascorbic acid 500 MG tablet Take 1 tablet by mouth daily. carveDILOL 25 MG tablet Take 1 tablet by mouth 2 times daily. Diclofenac Sodium 1 % Gel gel Diclofenac Diclofenac Sodium Active 4 GM Topical Four times daily October 01, 2020 10:38am 10-01-2020 [facility] ([id number]) Docusate 100 MG capsule Take 1 capsule by mouth 2 times daily. 60 capsule 0 Doxazosin 4 MG tablet Take 1 tablet by mouth daily. Folic acid 1 MG tablet Take 1 tablet by mouth daily. Fkvqfazmgvs-Sefwiugjl-Ikm C-Mn (Glucosamine 1500 Complex) capsule Take by mouth daily. Hydroxychloroquine 200 MG tablet Take 1 tablet by mouth 2 times daily. ibandronate 150 MG Tab Take 1 tablet by mouth every 30 days. Leflunomide 20 MG tablet Take 1 tablet by mouth daily. lisinopril 40 MG tablet Take 1 tablet by mouth daily. Meloxicam 7.5 MG tablet Take 1 tablet by mouth daily. Take with food. 30 tablet 0 methotrexate 2.5 MG tablet every 7 days. methylPREDNIsolone 4 MG Tab Therapy Pack tablet as needed. Oyster Shell Calcium w/D 500-5 MG-MCG tablet Take by mouth daily. pantoprazole [address] Take 1 tablet by mouth every evening at 6 PM. predniSONE 5 MG tablet Take 1 tablet by mouth as needed (for flair up of whole body). pregabalin 25 MG capsule every 12 hours. therapeutic multivitamin-minerals tablet Take 1 tablet by mouth at bedtime. 30 tablet 0 tiZANidine 4 MG tablet Take 1 tablet by mouth every 6 hours as needed for Muscle spasms. traMADol 50 MG tablet Take 1 tablet by mouth 3 times daily as needed for Pain. triamterene-hydrochlorothiazide 37.5-25 MG Cap Take 1 capsule by mouth as needed (edema). TURMERIC PO as directed Orally Alpha-Lipoic Acid 200 MG capsule 1 capsule daily. (Patient not taking: Reported on 04/19/2024) apixaban 2.5 MG tablet Take 1 tablet by mouth every 12 hours. This medication is for blood clot prevention 70 tablet 0 Biotin 1 MG capsule Take by mouth daily. (Patient not taking: Reported on 04/19/2024) oxyCODONE 5 MG tablet Take 1-2 tabs po q 4-6 hours prn pain. Wean as tolerated. 30 tablet 0 Sucralfate 1 g tablet Take 1 tablet by mouth 2 times daily. (Patient not taking: Reported on 04/19/2024) 60 tablet 0 No facility-administered medications prior to visit. Current Outpatient Medications: Acetaminophen 325 MG tablet, Take 2 tablets by mouth every 4 hours as needed for Mild Pain., Disp: 50 tablet, Rfl: 1 amoxicillin 250 MG capsule, Take 2 capsules by mouth every 8 hours. 4 capsules 1 hour before procedure, Disp: , Rfl: Amoxicillin 500 MG capsule, Take 4 capsules 1 hour before procedure, Disp: 8 capsule, Rfl: 1 Ascorbic acid 500 MG tablet, Take 1 tablet by mouth daily., Disp: , Rfl: carveDILOL 25 MG tablet, Take 1 tablet by mouth 2 times daily., Disp: , Rfl: Diclofenac Sodium 1 % Gel gel, Diclofenac Diclofenac Sodium Active 4 GM Topical Four times daily October 01, 2020 10:38am 10-01-2020 [facility] ([id number]), Disp: , Rfl: Docusate 100 MG capsule, Take 1 capsule by mouth 2 times daily., Disp: 60 capsule, Rfl: 0 Doxazosin 4 MG tablet, Take 1 tablet by mouth daily., Disp: , Rfl: Folic acid 1 MG tablet, Take 1 tablet by mouth daily., Disp: , Rfl: Gxlsevpyxhy-Wewihryie-Fap C-Mn (Glucosamine 1500 Complex) capsule, Take by mouth daily., Disp: , Rfl: Hydroxychloroquine 200 MG tablet, Take 1 tablet by mouth 2 times daily., Disp: , Rfl: ibandronate 150 MG Tab, Take 1 tablet by mouth every 30 days., Disp: , Rfl: Leflunomide 20 MG tablet, Take 1 tablet by mouth daily., Disp: , Rfl: lisinopril 40 MG tablet, Take 1 tablet by mouth daily., Disp: , Rfl: Meloxicam 7.5 MG tablet, Take 1 tablet by mouth daily. Take with food., Disp: 30 tablet, Rfl: 0 methotrexate 2.5 MG tablet, every 7 days., Disp: , Rfl: methylPREDNIsolone 4 MG Tab Therapy Pack tablet, as needed., Disp: , Rfl: Oyster Shell Calcium w/D 500-5 MG-MCG tablet, Take by mouth daily., Disp: , Rfl: pantoprazole [address], Take 1 tablet by mouth every evening at 6 PM., Disp: , Rfl: predniSONE 5 MG tablet, Take 1 tablet by mouth as needed (for flair up of whole body)., Disp: , Rfl: pregabalin 25 MG capsule, every 12 hours., Disp: , Rfl: therapeutic multivitamin-minerals tablet, Take 1 tablet by mouth at bedtime., Disp: 30 tablet, Rfl: 0 tiZANidine 4 MG tablet, Take 1 tablet by mouth every 6 hours as needed for Muscle spasms., Disp: , Rfl: traMADol 50 MG tablet, Take 1 tablet by mouth 3 times daily as needed for Pain., Disp: , Rfl: triamterene-hydrochlorothiazide 37.5-25 MG Cap, Take 1 capsule by mouth as needed (edema)., Disp: , Rfl: TURMERIC PO, as directed Orally, Disp: , Rfl: Alpha-Lipoic Acid 200 MG capsule, 1 capsule daily. (Patient not taking: Reported on 04/19/2024), Disp: , Rfl: apixaban 2.5 MG tablet, Take 1 tablet by mouth every 12 hours. This medication is for blood clot prevention, Disp: 70 tablet, Rfl: 0 Biotin 1 MG capsule, Take by mouth daily. (Patient not taking: Reported on 04/19/2024), Disp: , Rfl: oxyCODONE 5 MG tablet, Take 1-2 tabs po q 4-6 hours prn pain. Wean as tolerated., Disp: 30 tablet, Rfl: 0 Sucralfate 1 g tablet, Take 1 tablet by mouth 2 times daily. (Patient not taking: Reported on 04/19/2024), Disp: 60 tablet, Rfl: 0 Allergies: She is allergic to ciprofloxacin, gralise [gabapentin (once-daily)], alendronate, gabapentin, oxcarbazepine, bactrim [sulfamethoxazole-trimethoprim], levofloxacin, sulfamethoxazole, and trimethoprim. HPI: Danyelle is an established patient of [facility]. She is here today for followup. She is now about 20 weeks out from left knee extensor mechanism reconstruction with mesh and about 14 weeks out from right knee periprosthetic patellar fracture. She is here today for a 4 week followup. Denies pain and feels she is progressing nicely overall. PHYSICAL EXAM: The bilateral lower extremities were evaluated. The operative lower extremity is soft, nontender, no pain, no impingement. No instability. Incision is well healed. Left knee has demonstration of full active extension and is also able to maintain active extension of the right knee of 7 degrees, has good strength against resistance and feels palpably stable. Both extremities have normal neurovascular status. DIAGNOSTIC STUDIES/INTERPRETATION: Plain film radiographs reviewed. Multiple views of the knees demonstrate a left knee revision with extensor mechanism repair in good position and alignment as well as right knee arthroplasty in place with evidence of periprosthetic displaced patella fracture in unchanged position and alignment. IMPRESSION: 1.) History of left knee instability, status post revision, history of multiple left knee extensor reconstruction with mesh allograft. 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 PLAN: I reviewed my findings with Danyelle. We discussed the diagnosis, radiographs, physical exam findings and treatment options. Overall, I'm so pleased with her progression and her ability to actively maintain active extension of both legs. Moving forward, may come out of TROM brace, start WBAT and continue working with physical therapist. The use of bracing at this time is only for prevention of accidents and injuries. Encouraged slow and steady advancement to achieve full function of legs. May discontinue the Eliquis since she's now WBAT. She verbalized understanding to plan of care moving forward .See back in 4-6 weeks for repeat radiograph and evaluation. All questions were answered to her satisfaction. I have reviewed the findings of my clinical staff below and agree with their assessment. There were no vitals filed for this visit. Pain Recent Labs No results found for: CRP No results found for: SEDRATE Lab Results Component Value Date WBC 3.6 12/02/2023 HGB 9.2 (L) 12/02/2023 HCT 27.6 (L) 12/02/2023 PLATELET 165 12/02/2023 MCV 102.5 (H) 12/02/2023 Past Medical History: Diagnosis Date Active advance directive Living Will and Health Care POA Anemia Fe deficiency 30 years ago Ankle swelling bilateral Arthritis Back pain Connective tissue disease non-specific Depression Easy bruising Essential hypertension, benign Insomnia Joint pain Leg pain sciatica radiating to right posterior leg to knee Muscle weakness arms and legs; uses cane or walker for ambulation 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 Numbness feet Osteoarthritis Pneumonia 2011 RSD (reflex sympathetic dystrophy) Swelling of multiple joints L knee and right hip Ulcer gastric Use of cane as ambulatory aid Past Surgical History: Procedure Laterality Date REVISION ARTHROPLASTY KNEE Left 11/29/2023 Laterality: Left; Surgeon: New Mcclure MD; Location: [facility] ARTHROPLASTY KNEE TOTAL Right 04/26/2023 Laterality: Right; Surgeon: New Mcclure MD; Location: [facility] REVISION ARTHROPLASTY KNEE Left 11/21/2018 Laterality: Left; Surgeon: New Mcclure MD; Location: [facility] EXTRACTION EXTRACAPSULAR CATARACT W/ IMPLANT (ECCE IOL) Bilateral 2018 [facility] TREATMENT OPEN PATELLAR FX W/ INTERNAL [...] ablation OTHER SURGICAL joint replacement TONSILLECTOMY Family History Problem Relation Age of Onset Heart Disease - Other Mother Bleeding or Clotting Problems Mother blood clots Hypertension Mother Cancer Father Cancer Sister Diabetes Sister Social History Socioeconomic History Marital status: Single Tobacco Use Smoking status: Never Smokeless tobacco: Never Vaping Use Vaping status: Never Used Substance and Sexual Activity Alcohol use: No Drug use: No Social Determinants of Health Food Insecurity: No Food Insecurity (11/29/2023) Hunger Vital Sign Worried About Running Out of Food in the Last Year: Never true Ran Out of Food in the Last Year: Never true Transportation Needs: No Transportation Needs (11/29/2023) PRAPARE - Transportation Lack of Transportation (Medical): No Lack of Transportation (Non-Medical): No Intimate Partner Violence: Not At Risk (11/29/2023) Humiliation, Afraid, Rape, and Kick questionnaire Fear of Current or Ex-Partner: No Emotionally Abused: No Physically Abused: No Sexually Abused: No Housing Stability: Low Risk (11/29/2023) Housing Stability Vital Sign Unable to Pay for Housing in the Last Year: No Number of Places Lived in the Last Year: 1 Unstable Housing in the Last Year: No Current Outpatient Medications: Acetaminophen 325 MG tablet, Take 2 tablets by mouth every 4 hours as needed for Mild Pain., Disp: 50 tablet, Rfl: 1 amoxicillin 250 MG capsule, Take 2 capsules by mouth every 8 hours. 4 capsules 1 hour before procedure, Disp: , Rfl: Amoxicillin 500 MG capsule, Take 4 capsules 1 hour before procedure, Disp: 8 capsule, Rfl: 1 Ascorbic acid 500 MG tablet, Take 1 tablet by mouth daily., Disp: , Rfl: carveDILOL 25 MG tablet, Take 1 tablet by mouth 2 times daily., Disp: , Rfl: Diclofenac Sodium 1 % Gel gel, Diclofenac Diclofenac Sodium Active 4 GM Topical Four times daily October 01, 2020 10:38am 10-01-2020 [facility] ([id number]), Disp: , Rfl: Docusate 100 MG capsule, Take 1 capsule by mouth 2 times daily., Disp: 60 capsule, Rfl: 0 Doxazosin 4 MG tablet, Take 1 tablet by mouth daily., Disp: , Rfl: Folic acid 1 MG tablet, Take 1 tablet by mouth daily., Disp: , Rfl: Srnnzckxtre-Rkrzhfvhi-Cwc C-Mn (Glucosamine 1500 Complex) capsule, Take by mouth daily., Disp: , Rfl: Hydroxychloroquine 200 MG tablet, Take 1 tablet by mouth 2 times daily., Disp: , Rfl: ibandronate 150 MG Tab, Take 1 tablet by mouth every 30 days., Disp: , Rfl: Leflunomide 20 MG tablet, Take 1 tablet by mouth daily., Disp: , Rfl: lisinopril 40 MG tablet, Take 1 tablet by mouth daily., Disp: , Rfl: Meloxicam 7.5 MG tablet, Take 1 tablet by mouth daily. Take with food., Disp: 30 tablet, Rfl: 0 methotrexate 2.5 MG tablet, every 7 days., Disp: , Rfl: methylPREDNIsolone 4 MG Tab Therapy Pack tablet, as needed., Disp: , Rfl: Oyster Shell Calcium w/D 500-5 MG-MCG tablet, Take by mouth daily., Disp: , Rfl: pantoprazole [address], Take 1 tablet by mouth every evening at 6 PM., Disp: , Rfl: predniSONE 5 MG tablet, Take 1 tablet by mouth as needed (for flair up of whole body)., Disp: , Rfl: pregabalin 25 MG capsule, every 12 hours., Disp: , Rfl: therapeutic multivitamin-minerals tablet, Take 1 tablet by mouth at bedtime., Disp: 30 tablet, Rfl: 0 tiZANidine 4 MG tablet, Take 1 tablet by mouth every 6 hours as needed for Muscle spasms., Disp: , Rfl: traMADol 50 MG tablet, Take 1 tablet by mouth 3 times daily as needed for Pain., Disp: , Rfl: triamterene-hydrochlorothiazide 37.5-25 MG Cap, Take 1 capsule by mouth as needed (edema)., Disp: , Rfl: TURMERIC PO, as directed Orally, Disp: , Rfl: Alpha-Lipoic Acid 200 MG capsule, 1 capsule daily. (Patient not taking: Reported on 04/19/2024), Disp: , Rfl: apixaban 2.5 MG tablet, Take 1 tablet by mouth every 12 hours. This medication is for blood clot prevention, Disp: 70 tablet, Rfl: 0 Biotin 1 MG capsule, Take by mouth daily. (Patient not taking: Reported on 04/19/2024), Disp: , Rfl: oxyCODONE 5 MG tablet, Take 1-2 tabs po q 4-6 hours prn pain. Wean as tolerated., Disp: 30 tablet, Rfl: 0 Sucralfate 1 g tablet, Take 1 tablet by mouth 2 times daily. (Patient not taking: Reported on 04/19/2024), Disp: 60 tablet, Rfl: 0 Allergies Allergen Reactions Ciprofloxacin Other reaction(s): Allergy critical , tendon rupture Gralise [Gabapentin (Once-Daily)] Blisters Caused the skin on her lips to peel and nervousness Alendronate Abdominal Discomfort and Dyspepsia Gabapentin Nausea and Vomiting Oxcarbazepine Nausea and Vomiting Bactrim [Sulfamethoxazole-Trimethoprim] Myalgia Levofloxacin Tendon rupture Sulfamethoxazole Weakness Trimethoprim Weakness documented in this encounter [facility] 03-22-2024 History of Presen t illness Narrative Ortho Nurse - Established Patient Intake Room#: room 3--- pt here today for a 4 wk follow-up bilateral knees from OV 02/23/24. Pt rates her pain on a scale of 0/10 today. Pt states since she has been able to bend the knee that she is doing better and putting weight on the left knee. She states she has seen no changes in the right knee. Denies any falls or injuries. Pt states PT seems to be going good and that it is helping. Date: 03/22/2024 3:49 PM Patient: Danyelle Haskins MR#: [id number] : 1955 Age: 68 y.o. Referring Physician: Self, Self Insurance: Payor: MEDICARE / Plan: MEDICARE A AND B / Product Type: *No Product type* / Chief Complaint Patient presents with Left Knee - Follow-up Right Knee - Follow-up Visit Vitals Ht 1.702 m (5' 7 ) Wt 102.5 kg (226 lb) BMI 35.40 kg/m Pain Recent Labs No results found for: CRP No results found for: SEDRATE Lab Results Component Value Date WBC 3.6 12/02/2023 HGB 9.2 (L) 12/02/2023 HCT 27.6 (L) 12/02/2023 PLATELET 165 12/02/2023 MCV 102.5 (H) 12/02/2023 History Past Medical History: Diagnosis Date Pneumonia 2010 Active advance directive Living Will and Health Care POA Anemia Fe deficiency 30 years ago Ankle swelling bilateral Arthritis Back pain Connective tissue disease non-specific Depression Easy bruising Essential hypertension, benign Insomnia Joint pain Leg pain sciatica radiating to right posterior leg to knee Muscle weakness arms and legs; uses cane or walker for ambulation 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 Numbness feet Osteoarthritis RSD (reflex sympathetic dystrophy) Swelling of multiple joints L knee and right hip Ulcer gastric Use of cane as ambulatory aid Past Surgical History: Procedure Laterality Date REVISION ARTHROPLASTY KNEE Left 11/29/2023 Laterality: Left; Surgeon: New Mcclure MD; Location: [facility] ARTHROPLASTY KNEE TOTAL Right 04/26/2023 Laterality: Right; Surgeon: New Mcclure MD; Location: [facility] REVISION ARTHROPLASTY KNEE Left 11/21/2018 Laterality: Left; Surgeon: New Mcclure MD; Location: [facility] EXTRACTION EXTRACAPSULAR CATARACT W/ IMPLANT (ECCE IOL) Bilateral 2018 [facility] TREATMENT OPEN PATELLAR FX W/ INTERNAL [...] needed for Mild Pain. 50 tablet 1 Alpha-Lipoic Acid 200 MG capsule 1 capsule daily. amoxicillin 250 MG capsule Take 2 capsules by mouth every 8 hours. 4 capsules 1 hour before procedure Amoxicillin 500 MG capsule Take 4 capsules 1 hour before procedure 8 capsule 1 apixaban 2.5 MG tablet Take 1 tablet by mouth every 12 hours. This medication is for blood clot prevention 70 tablet 0 Ascorbic acid 500 MG tablet Take 1 tablet by mouth daily. Biotin 1 MG capsule Take by mouth daily. carveDILOL 25 MG tablet Take 1 tablet by mouth 2 times daily. Diclofenac Sodium 1 % Gel gel Diclofenac Diclofenac Sodium Active 4 GM Topical Four times daily October 01, 2020 10:38am 10-01-2020 [facility] ([id number]) Docusate 100 MG capsule Take 1 capsule by mouth 2 times daily. 60 capsule 0 Doxazosin 4 MG tablet Take 1 tablet by mouth daily. Folic acid 1 MG tablet Take 1 tablet by mouth daily. Modwgiqbosu-Plkzfttog-Han C-Mn (Glucosamine 1500 Complex) capsule Take by mouth daily. Hydroxychloroquine 200 MG tablet Take 1 tablet by mouth 2 times daily. ibandronate 150 MG Tab Take 1 tablet by mouth every 30 days. Leflunomide 20 MG tablet Take 1 tablet by mouth daily. lisinopril 40 MG tablet Take 1 tablet by mouth daily. Meloxicam 7.5 MG tablet Take 1 tablet by mouth daily. Take with food. 30 tablet 0 methotrexate 2.5 MG tablet every 7 days. methylPREDNIsolone 4 MG Tab Therapy Pack tablet as needed. oxyCODONE 5 MG tablet Take 1-2 tabs po q 4-6 hours prn pain. Wean as tolerated. 30 tablet 0 Oyster Shell Calcium w/D 500-5 MG-MCG tablet Take by mouth daily. pantoprazole [address] Take 1 tablet by mouth every evening at 6 PM. predniSONE 5 MG tablet Take 1 tablet by mouth as needed (for flair up of whole body). pregabalin 25 MG capsule every 12 hours. Sucralfate 1 g tablet Take 1 tablet by mouth 2 times daily. 60 tablet 0 therapeutic multivitamin-minerals tablet Take 1 tablet by mouth at bedtime. 30 tablet 0 tiZANidine 4 MG tablet Take 1 tablet by mouth every 6 hours as needed for Muscle spasms. traMADol 50 MG tablet Take 1 tablet by mouth 3 times daily as needed for Pain. triamterene-hydrochlorothiazide 37.5-25 MG Cap Take 1 capsule by mouth as needed (edema). TURMERIC PO as directed Orally No facility-administered medications prior to visit. Allergies: She is allergic to ciprofloxacin, gralise [gabapentin (once-daily)], alendronate, gabapentin, oxcarbazepine, bactrim [sulfamethoxazole-trimethoprim], and levofloxacin. HPI: Danyelle is an established patient of [facility]. She is here today for followup. She is now about 16 weeks out from left knee extensor mechanism reconstruction with mesh and about 10 weeks out from right knee periprosthetic patellar fracture. She is here today for a 4 week followup. States PT has been helpful and is putting weight on the left knee as well as bending it. She denies pain and has no additional questions or concerns. PHYSICAL EXAM: The bilateral lower extremities were evaluated. The operative lower extremity is soft, nontender, no pain, no impingement. No instability. Incision is well healed. Left knee has demonstration of full active extension and is also able to maintain active extension of the right knee without palpable disruptions. Both extremities have normal neurovascular status. DIAGNOSTIC STUDIES/INTERPRETATION: Plain film radiographs reviewed. Multiple views of the knees demonstrate a left knee revision with extensor mechanism repair in good position and alignment as well as right knee arthroplasty in place with evidence of periprosthetic fracture in unchanged position and alignment. IMPRESSION: 1.) History of left knee instability, status post revision, history of multiple left knee extensor reconstructions 2.) History of right total knee arthroplasty with preprosthetic fracture. PLAN: I reviewed my findings with Danyelle. We discussed the diagnosis, radiographs, physical exam findings and treatment options together. At this time, I'm very pleased with bilateral active extension. Moving forward for the right knee, will keep TROM locked in extension for another 2 weeks. In two weeks, will open the brace up from 0-40 for 2 weeks and then start advancing 10 degrees per week. Regarding the left knee, will continue advancing flexion until 120 degrees is reached. Advised her to remain PWB for both knees. She verbalized understanding to plan of care. All questions were answered to her satisfaction. Will see back in 4 weeks. I have reviewed the findings of the clinical operations support manager and agree with their assessment. Ortho Nurse - Established Patient Intake Room#: room 3--- pt here today for a 4 wk follow-up bilateral knees from OV 02/23/24. Pt rates her pain on a scale of 0/10 today. Pt states since she has been able to bend the knee that she is doing better and putting weight on the left knee. She states she has seen no changes in the right knee. Denies any falls or injuries. Pt states PT seems to be going good and that it is helping. Date: 03/22/2024 3:49 PM Patient: Danyelle Haskins MR#: [id number] : 1955 Age: 68 y.o. Referring Physician: Self, Self Insurance: Payor: MEDICARE / Plan: MEDICARE A AND B / Product Type: *No Product type* / Chief Complaint Patient presents with Left Knee - Follow-up Right Knee - Follow-up Visit Vitals Ht 1.702 m (5' 7 ) Wt 102.5 kg (226 lb) BMI 35.40 kg/m Pain Recent Labs No results found for: CRP No results found for: SEDRATE Lab Results Component Value Date WBC 3.6 12/02/2023 HGB 9.2 (L) 12/02/2023 HCT 27.6 (L) 12/02/2023 PLATELET 165 12/02/2023 MCV 102.5 (H) 12/02/2023 History Past Medical History: Diagnosis Date Pneumonia 2010 Active advance directive Living Will and Health Care POA Anemia Fe deficiency 30 years ago Ankle swelling bilateral Arthritis Back pain Connective tissue disease non-specific Depression Easy bruising Essential hypertension, benign Insomnia Joint pain Leg pain sciatica radiating to right posterior leg to knee Muscle weakness arms and legs; uses cane or walker for ambulation 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 Numbness feet Osteoarthritis RSD (reflex sympathetic dystrophy) Swelling of multiple joints L knee and right hip Ulcer gastric Use of cane as ambulatory aid Past Surgical History: Procedure Laterality Date REVISION ARTHROPLASTY KNEE Left 11/29/2023 Laterality: Left; Surgeon: New Mcclure MD; Location: [facility] ARTHROPLASTY KNEE TOTAL Right 04/26/2023 Laterality: Right; Surgeon: New Mcclure MD; Location: [facility] REVISION ARTHROPLASTY KNEE Left 11/21/2018 Laterality: Left; Surgeon: New Mcclure MD; Location: [facility] EXTRACTION EXTRACAPSULAR CATARACT W/ IMPLANT (ECCE IOL) Bilateral 2017 [facility] TREATMENT OPEN PATELLAR FX W/ INTERNAL [...] needed for Mild Pain. 50 tablet 1 Alpha-Lipoic Acid 200 MG capsule 1 capsule daily. amoxicillin 250 MG capsule Take 2 capsules by mouth every 8 hours. 4 capsules 1 hour before procedure Amoxicillin 500 MG capsule Take 4 capsules 1 hour before procedure 8 capsule 1 apixaban 2.5 MG tablet Take 1 tablet by mouth every 12 hours. This medication is for blood clot prevention 70 tablet 0 Ascorbic acid 500 MG tablet Take 1 tablet by mouth daily. Biotin 1 MG capsule Take by mouth daily. carveDILOL 25 MG tablet Take 1 tablet by mouth 2 times daily. Diclofenac Sodium 1 % Gel gel Diclofenac Diclofenac Sodium Active 4 GM Topical Four times daily October 01, 2020 10:38am 10-01-2020 [facility] ([id number]) Docusate 100 MG capsule Take 1 capsule by mouth 2 times daily. 60 capsule 0 Doxazosin 4 MG tablet Take 1 tablet by mouth daily. Folic acid 1 MG tablet Take 1 tablet by mouth daily. Lgxldrbloiu-Qpbyyhlag-Rtc C-Mn (Glucosamine 1500 Complex) capsule Take by mouth daily. Hydroxychloroquine 200 MG tablet Take 1 tablet by mouth 2 times daily. ibandronate 150 MG Tab Take 1 tablet by mouth every 30 days. Leflunomide 20 MG tablet Take 1 tablet by mouth daily. lisinopril 40 MG tablet Take 1 tablet by mouth daily. Meloxicam 7.5 MG tablet Take 1 tablet by mouth daily. Take with food. 30 tablet 0 methotrexate 2.5 MG tablet every 7 days. methylPREDNIsolone 4 MG Tab Therapy Pack tablet as needed. oxyCODONE 5 MG tablet Take 1-2 tabs po q 4-6 hours prn pain. Wean as tolerated. 30 tablet 0 Oyster Shell Calcium w/D 500-5 MG-MCG tablet Take by mouth daily. pantoprazole [address] Take 1 tablet by mouth every evening at 6 PM. predniSONE 5 MG tablet Take 1 tablet by mouth as needed (for flair up of whole body). pregabalin 25 MG capsule every 12 hours. Sucralfate 1 g tablet Take 1 tablet by mouth 2 times daily. 60 tablet 0 therapeutic multivitamin-minerals tablet Take 1 tablet by mouth at bedtime. 30 tablet 0 tiZANidine 4 MG tablet Take 1 tablet by mouth every 6 hours as needed for Muscle spasms. traMADol 50 MG tablet Take 1 tablet by mouth 3 times daily as needed for Pain. triamterene-hydrochlorothiazide 37.5-25 MG Cap Take 1 capsule by mouth as needed (edema). TURMERIC PO as directed Orally No facility-administered medications prior to visit. Allergies: She is allergic to ciprofloxacin, gralise [gabapentin (once-daily)], alendronate, gabapentin, oxcarbazepine, bactrim [sulfamethoxazole-trimethoprim], and levofloxacin. documented in this encounter [facility] 02-23-2024 History of Presen t illness Narrative Ortho Nurse - Established Patient Intake Room#: 4 Date: 02/23/2024 11:05 AM Patient: Danyelle Haskins MR#: [id number] : 1955 Age: 68 y.o. 4M L TKA Pt stated she is doing ok on the L it is just laying here doing nothing, denies any pain in it.0/10 and the R is doing the same as the L 0/10. Pt was wearing braces on both legs and in a wheelchair. Referring Physician: Self, Self Insurance: Payor: MEDICARE / Plan: MEDICARE A AND B / Product Type: *No Product type* / Chief Complaint Patient presents with Left Knee - Follow-up Right Knee - Follow-up Visit Vitals Ht 1.702 m (5' 7 ) Wt 102.5 kg (226 lb) BMI 35.40 kg/m Pain Recent Labs No results found for: CRP No results found for: SEDRATE Lab Results Component Value Date WBC 3.6 12/02/2023 HGB 9.2 (L) 12/02/2023 HCT 27.6 (L) 12/02/2023 PLATELET 165 12/02/2023 MCV 102.5 (H) 12/02/2023 History Past Medical History: Diagnosis Date Pneumonia 2010 Active advance directive Living Will and Health Care POA Anemia Fe deficiency 30 years ago Ankle swelling bilateral Arthritis Back pain Connective tissue disease non-specific Depression Easy bruising Essential hypertension, benign Insomnia Joint pain Leg pain sciatica radiating to right posterior leg to knee Muscle weakness arms and legs; uses cane or walker for ambulation 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 Numbness feet Osteoarthritis RSD (reflex sympathetic dystrophy) Swelling of multiple joints L knee and right hip Ulcer gastric Use of cane as ambulatory aid Past Surgical History: Procedure Laterality Date REVISION ARTHROPLASTY KNEE Left 11/29/2023 Laterality: Left; Surgeon: New Mcclure MD; Location: [facility] ARTHROPLASTY KNEE TOTAL Right 04/26/2023 Laterality: Right; Surgeon: New Mcclure MD; Location: [facility] REVISION ARTHROPLASTY KNEE Left 11/21/2018 Laterality: Left; Surgeon: New Mcclure MD; Location: [facility] EXTRACTION EXTRACAPSULAR CATARACT W/ IMPLANT (ECCE IOL) Bilateral 2018 [facility] TREATMENT OPEN PATELLAR FX W/ INTERNAL [...] needed for Mild Pain. 50 tablet 1 Alpha-Lipoic Acid 200 MG capsule 1 capsule daily. amoxicillin 250 MG capsule Take 2 capsules by mouth every 8 hours. 4 capsules 1 hour before procedure Amoxicillin 500 MG capsule Take 4 capsules 1 hour before procedure 8 capsule 1 Ascorbic acid 500 MG tablet Take 1 tablet by mouth daily. Biotin 1 MG capsule Take by mouth daily. carveDILOL 25 MG tablet Take 1 tablet by mouth 2 times daily. Diclofenac Sodium 1 % Gel gel Diclofenac Diclofenac Sodium Active 4 GM Topical Four times daily October 01, 2020 10:38am 10-01-2020 [facility] ([id number]) Docusate 100 MG capsule Take 1 capsule by mouth 2 times daily. 60 capsule 0 Doxazosin 4 MG tablet Take 1 tablet by mouth daily. Folic acid 1 MG tablet Take 1 tablet by mouth daily. Dbtgmigmeqa-Yflsjwquj-Zwz C-Mn (Glucosamine 1500 Complex) capsule Take by mouth daily. Hydroxychloroquine 200 MG tablet Take 1 tablet by mouth 2 times daily. ibandronate 150 MG Tab Take 1 tablet by mouth every 30 days. Leflunomide 20 MG tablet Take 1 tablet by mouth daily. lisinopril 40 MG tablet Take 1 tablet by mouth daily. Meloxicam 7.5 MG tablet Take 1 tablet by mouth daily. Take with food. 30 tablet 0 methotrexate 2.5 MG tablet every 7 days. methylPREDNIsolone 4 MG Tab Therapy Pack tablet as needed. Oyster Shell Calcium w/D 500-5 MG-MCG tablet Take by mouth daily. pantoprazole [address] Take 1 tablet by mouth every evening at 6 PM. predniSONE 5 MG tablet Take 1 tablet by mouth as needed (for flair up of whole body). pregabalin 25 MG capsule every 12 hours. Sucralfate 1 g tablet Take 1 tablet by mouth 2 times daily. 60 tablet 0 therapeutic multivitamin-minerals tablet Take 1 tablet by mouth at bedtime. 30 tablet 0 tiZANidine 4 MG tablet Take 1 tablet by mouth every 6 hours as needed for Muscle spasms. traMADol 50 MG tablet Take 1 tablet by mouth 3 times daily as needed for Pain. triamterene-hydrochlorothiazide 37.5-25 MG Cap Take 1 capsule by mouth as needed (edema). TURMERIC PO as directed Orally apixaban 2.5 MG tablet Take 1 tablet by mouth every 12 hours. This medication is for blood clot prevention 70 tablet 0 oxyCODONE 5 MG tablet Take 1-2 tabs po q 4-6 hours prn pain. Wean as tolerated. 30 tablet 0 No facility-administered medications prior to visit. Current Outpatient Medications: Acetaminophen 325 MG tablet, Take 2 tablets by mouth every 4 hours as needed for Mild Pain., Disp: 50 tablet, Rfl: 1 Alpha-Lipoic Acid 200 MG capsule, 1 capsule daily., Disp: , Rfl: amoxicillin 250 MG capsule, Take 2 capsules by mouth every 8 hours. 4 capsules 1 hour before procedure, Disp: , Rfl: Amoxicillin 500 MG capsule, Take 4 capsules 1 hour before procedure, Disp: 8 capsule, Rfl: 1 Ascorbic acid 500 MG tablet, Take 1 tablet by mouth daily., Disp: , Rfl: Biotin 1 MG capsule, Take by mouth daily., Disp: , Rfl: carveDILOL 25 MG tablet, Take 1 tablet by mouth 2 times daily., Disp: , Rfl: Diclofenac Sodium 1 % Gel gel, Diclofenac Diclofenac Sodium Active 4 GM Topical Four times daily October 01, 2020 10:38am 10-01-2020 [facility] ([id number]), Disp: , Rfl: Docusate 100 MG capsule, Take 1 capsule by mouth 2 times daily., Disp: 60 capsule, Rfl: 0 Doxazosin 4 MG tablet, Take 1 tablet by mouth daily., Disp: , Rfl: Folic acid 1 MG tablet, Take 1 tablet by mouth daily., Disp: , Rfl: Zgyiccejiku-Caowuuqxf-Fqv C-Mn (Glucosamine 1500 Complex) capsule, Take by mouth daily., Disp: , Rfl: Hydroxychloroquine 200 MG tablet, Take 1 tablet by mouth 2 times daily., Disp: , Rfl: ibandronate 150 MG Tab, Take 1 tablet by mouth every 30 days., Disp: , Rfl: Leflunomide 20 MG tablet, Take 1 tablet by mouth daily., Disp: , Rfl: lisinopril 40 MG tablet, Take 1 tablet by mouth daily., Disp: , Rfl: Meloxicam 7.5 MG tablet, Take 1 tablet by mouth daily. Take with food., Disp: 30 tablet, Rfl: 0 methotrexate 2.5 MG tablet, every 7 days., Disp: , Rfl: methylPREDNIsolone 4 MG Tab Therapy Pack tablet, as needed., Disp: , Rfl: Oyster Shell Calcium w/D 500-5 MG-MCG tablet, Take by mouth daily., Disp: , Rfl: pantoprazole [address], Take 1 tablet by mouth every evening at 6 PM., Disp: , Rfl: predniSONE 5 MG tablet, Take 1 tablet by mouth as needed (for flair up of whole body)., Disp: , Rfl: pregabalin 25 MG capsule, every 12 hours., Disp: , Rfl: Sucralfate 1 g tablet, Take 1 tablet by mouth 2 times daily., Disp: 60 tablet, Rfl: 0 therapeutic multivitamin-minerals tablet, Take 1 tablet by mouth at bedtime., Disp: 30 tablet, Rfl: 0 tiZANidine 4 MG tablet, Take 1 tablet by mouth every 6 hours as needed for Muscle spasms., Disp: , Rfl: traMADol 50 MG tablet, Take 1 tablet by mouth 3 times daily as needed for Pain., Disp: , Rfl: triamterene-hydrochlorothiazide 37.5-25 MG Cap, Take 1 capsule by mouth as needed (edema)., Disp: , Rfl: TURMERIC PO, as directed Orally, Disp: , Rfl: apixaban 2.5 MG tablet, Take 1 tablet by mouth every 12 hours. This medication is for blood clot prevention, Disp: 70 tablet, Rfl: 0 oxyCODONE 5 MG tablet, Take 1-2 tabs po q 4-6 hours prn pain. Wean as tolerated., Disp: 30 tablet, Rfl: 0 Allergies: She is allergic to ciprofloxacin, gralise [gabapentin (once-daily)], alendronate, gabapentin, oxcarbazepine, bactrim [sulfamethoxazole-trimethoprim], and levofloxacin. SUBJECTIVE: Danyelle is an established patient of [employer]. She is here today for followup. She is now about 12 weeks out from left knee extensor mechanism reconstruction with mesh and about 6 weeks out from right knee periprosthetic patellar fracture. She reports nothing in the way of pain. No fevers or chills. No changes constitutionally. No further problems with her skin. PHYSICAL EXAMINATION: GENERAL: She is alert, oriented, and age-appropriate female, in no acute distress. Pleasant, cooperative. EXTREMITIES: The left lower extremity was evaluated. Thigh and calf soft, nontender. Normal neurovascular status. Negative Homans sign. The brace was opened up to 30 degrees. She has active extension from 0 degrees to 30 degrees in flexion with the limits of the brace stopping her. Extensor mechanism is intact to palpation. Wound is well healed. Right lower extremity has thigh and calf soft, nontender. Normal neurovascular status. Negative Homans sign. Extensor mechanism is intact palpably. Patellar defect is thought to be palpated over the expected position. Nonetheless, the other superior and inferior portions of extensor mechanism feel intact. The brace was opened up to 30 degrees for assessment. She has active extension to 0 degrees and flexion to 30 degrees. The brace was then relocked in extension. DIAGNOSTIC STUDY AND INTERPRETATION: Multiple views left knee taken today demonstrate stable cemented revision total knee arthroplasty. Patella appears to be appropriate position tibial plateau as well as hardware fixation. Stable lucency seen in the central portion. The patella appears unchanged with previous imaging. Plain films of the right knee taken today reveal a cemented right total knee arthroplasty with evidence of transverse patella fracture, approximately 1 cm displaced, largely unchanged from previous imaging. ASSESSMENT: 1. Twelve weeks status post left knee extensor mechanism reconstruction with mesh graft. 2. Right knee periprosthetic patellar fracture. PLAN: I reviewed my findings with Danyelle. Discussed the diagnosis, radiographs and physical findings. I also discussed her care with Dr. Mcclure to ensure the plan of care was followed as discussed with him. Given her active extension on the right leg, we will continue the brace locked in extension for 4 more weeks in hopes that she can consolidate the 2 areas of the patella. With regard to the left knee, I am okay advancing to 0 to 30 degrees of flexion, increasing 10 degrees per week, would likely make her partial weightbearing in 2 weeks' time. However, given the restriction she has in the right leg, I am unsure if this will be a feasible transition or not. If that is the case, she should remain nonweightbearing on the left lower extremity as well. I would like her to follow up with Dr. Mcclure in 4 weeks' time. Continue the LUZ MARINA hose on Eliquis for DVT prophylaxis given her immobility and risk for developing a blood clot. All of her questions and concerns were addressed today to her satisfaction. Follow up in 4 weeks, sooner as needed. ([id number]) I have reviewed the findings of the clinical operations support manager and agree with their assessment. Rajinder Green APRN-MARTY Ortho Nurse - Established Patient Intake Room#: 4 Date: 02/23/2024 11:05 AM Patient: Danyelle Haskins MR#: [id number] : 1955 Age: 68 y.o. 4M L TKA Pt stated she is doing ok on the L it is just laying here doing nothing, denies any pain in it.0/10 and the R is doing the same as the L 0/10. Pt was wearing braces on both legs and in a wheelchair. Referring Physician: Self, Self Insurance: Payor: MEDICARE / Plan: MEDICARE A AND B / Product Type: *No Product type* / Chief Complaint Patient presents with Left Knee - Follow-up Right Knee - Follow-up Visit Vitals Ht 1.702 m (5' 7 ) Wt 102.5 kg (226 lb) BMI 35.40 kg/m Pain Recent Labs No results found for: CRP No results found for: SEDRATE Lab Results Component Value Date WBC 3.6 12/02/2023 HGB 9.2 (L) 12/02/2023 HCT 27.6 (L) 12/02/2023 PLATELET 165 12/02/2023 MCV 102.5 (H) 12/02/2023 History Past Medical History: Diagnosis Date Pneumonia 2010 Active advance directive Living Will and Health Care POA Anemia Fe deficiency 30 years ago Ankle swelling bilateral Arthritis Back pain Connective tissue disease non-specific Depression Easy bruising Essential hypertension, benign Insomnia Joint pain Leg pain sciatica radiating to right posterior leg to knee Muscle weakness arms and legs; uses cane or walker for ambulation 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 Numbness feet Osteoarthritis RSD (reflex sympathetic dystrophy) Swelling of multiple joints L knee and right hip Ulcer gastric Use of cane as ambulatory aid Past Surgical History: Procedure Laterality Date REVISION ARTHROPLASTY KNEE Left 11/29/2023 Laterality: Left; Surgeon: New Mcclure MD; Location: [facility] ARTHROPLASTY KNEE TOTAL Right 04/26/2023 Laterality: Right; Surgeon: New Mcclure MD; Location: [facility] REVISION ARTHROPLASTY KNEE Left 11/21/2018 Laterality: Left; Surgeon: New Mcclure MD; Location: [facility] EXTRACTION EXTRACAPSULAR CATARACT W/ IMPLANT (ECCE IOL) Bilateral 2018 [facility] TREATMENT OPEN PATELLAR FX W/ INTERNAL [...] lid celanzion EXCISION GANGLION CYST WRIST Right 1983 EXCISION GANGLION CYST Left EXCISION SKIN LESION [...] needed for Mild Pain. 50 tablet 1 Alpha-Lipoic Acid 200 MG capsule 1 capsule daily. amoxicillin 250 MG capsule Take 2 capsules by mouth every 8 hours. 4 capsules 1 hour before procedure Amoxicillin 500 MG capsule Take 4 capsules 1 hour before procedure 8 capsule 1 Ascorbic acid 500 MG tablet Take 1 tablet by mouth daily. Biotin 1 MG capsule Take by mouth daily. carveDILOL 25 MG tablet Take 1 tablet by mouth 2 times daily. Diclofenac Sodium 1 % Gel gel Diclofenac Diclofenac Sodium Active 4 GM Topical Four times daily October 01, 2020 10:38am 10-01-2020 [facility] ([id number]) Docusate 100 MG capsule Take 1 capsule by mouth 2 times daily. 60 capsule 0 Doxazosin 4 MG tablet Take 1 tablet by mouth daily. Folic acid 1 MG tablet Take 1 tablet by mouth daily. Ewzclnevpgj-Naphgplez-Qzc C-Mn (Glucosamine 1500 Complex) capsule Take by mouth daily. Hydroxychloroquine 200 MG tablet Take 1 tablet by mouth 2 times daily. ibandronate 150 MG Tab Take 1 tablet by mouth every 30 days. Leflunomide 20 MG tablet Take 1 tablet by mouth daily. lisinopril 40 MG tablet Take 1 tablet by mouth daily. Meloxicam 7.5 MG tablet Take 1 tablet by mouth daily. Take with food. 30 tablet 0 methotrexate 2.5 MG tablet every 7 days. methylPREDNIsolone 4 MG Tab Therapy Pack tablet as needed. Oyster Shell Calcium w/D 500-5 MG-MCG tablet Take by mouth daily. pantoprazole [address] Take 1 tablet by mouth every evening at 6 PM. predniSONE 5 MG tablet Take 1 tablet by mouth as needed (for flair up of whole body). pregabalin 25 MG capsule every 12 hours. Sucralfate 1 g tablet Take 1 tablet by mouth 2 times daily. 60 tablet 0 therapeutic multivitamin-minerals tablet Take 1 tablet by mouth at bedtime. 30 tablet 0 tiZANidine 4 MG tablet Take 1 tablet by mouth every 6 hours as needed for Muscle spasms. traMADol 50 MG tablet Take 1 tablet by mouth 3 times daily as needed for Pain. triamterene-hydrochlorothiazide 37.5-25 MG Cap Take 1 capsule by mouth as needed (edema). TURMERIC PO as directed Orally apixaban 2.5 MG tablet Take 1 tablet by mouth every 12 hours. This medication is for blood clot prevention 70 tablet 0 oxyCODONE 5 MG tablet Take 1-2 tabs po q 4-6 hours prn pain. Wean as tolerated. 30 tablet 0 No facility-administered medications prior to visit. Current Outpatient Medications: Acetaminophen 325 MG tablet, Take 2 tablets by mouth every 4 hours as needed for Mild Pain., Disp: 50 tablet, Rfl: 1 Alpha-Lipoic Acid 200 MG capsule, 1 capsule daily., Disp: , Rfl: amoxicillin 250 MG capsule, Take 2 capsules by mouth every 8 hours. 4 capsules 1 hour before procedure, Disp: , Rfl: Amoxicillin 500 MG capsule, Take 4 capsules 1 hour before procedure, Disp: 8 capsule, Rfl: 1 Ascorbic acid 500 MG tablet, Take 1 tablet by mouth daily., Disp: , Rfl: Biotin 1 MG capsule, Take by mouth daily., Disp: , Rfl: carveDILOL 25 MG tablet, Take 1 tablet by mouth 2 times daily., Disp: , Rfl: Diclofenac Sodium 1 % Gel gel, Diclofenac Diclofenac Sodium Active 4 GM Topical Four times daily October 01, 2020 10:38am 10-01-2020 [facility] ([id number]), Disp: , Rfl: Docusate 100 MG capsule, Take 1 capsule by mouth 2 times daily., Disp: 60 capsule, Rfl: 0 Doxazosin 4 MG tablet, Take 1 tablet by mouth daily., Disp: , Rfl: Folic acid 1 MG tablet, Take 1 tablet by mouth daily., Disp: , Rfl: Cmztgeuwjst-Gagljlomv-Tds C-Mn (Glucosamine 1500 Complex) capsule, Take by mouth daily., Disp: , Rfl: Hydroxychloroquine 200 MG tablet, Take 1 tablet by mouth 2 times daily., Disp: , Rfl: ibandronate 150 MG Tab, Take 1 tablet by mouth every 30 days., Disp: , Rfl: Leflunomide 20 MG tablet, Take 1 tablet by mouth daily., Disp: , Rfl: lisinopril 40 MG tablet, Take 1 tablet by mouth daily., Disp: , Rfl: Meloxicam 7.5 MG tablet, Take 1 tablet by mouth daily. Take with food., Disp: 30 tablet, Rfl: 0 methotrexate 2.5 MG tablet, every 7 days., Disp: , Rfl: methylPREDNIsolone 4 MG Tab Therapy Pack tablet, as needed., Disp: , Rfl: Oyster Shell Calcium w/D 500-5 MG-MCG tablet, Take by mouth daily., Disp: , Rfl: pantoprazole [address], Take 1 tablet by mouth every evening at 6 PM., Disp: , Rfl: predniSONE 5 MG tablet, Take 1 tablet by mouth as needed (for flair up of whole body)., Disp: , Rfl: pregabalin 25 MG capsule, every 12 hours., Disp: , Rfl: Sucralfate 1 g tablet, Take 1 tablet by mouth 2 times daily., Disp: 60 tablet, Rfl: 0 therapeutic multivitamin-minerals tablet, Take 1 tablet by mouth at bedtime., Disp: 30 tablet, Rfl: 0 tiZANidine 4 MG tablet, Take 1 tablet by mouth every 6 hours as needed for Muscle spasms., Disp: , Rfl: traMADol 50 MG tablet, Take 1 tablet by mouth 3 times daily as needed for Pain., Disp: , Rfl: triamterene-hydrochlorothiazide 37.5-25 MG Cap, Take 1 capsule by mouth as needed (edema)., Disp: , Rfl: TURMERIC PO, as directed Orally, Disp: , Rfl: apixaban 2.5 MG tablet, Take 1 tablet by mouth every 12 hours. This medication is for blood clot prevention, Disp: 70 tablet, Rfl: 0 oxyCODONE 5 MG tablet, Take 1-2 tabs po q 4-6 hours prn pain. Wean as tolerated., Disp: 30 tablet, Rfl: 0 Allergies: She is allergic to ciprofloxacin, gralise [gabapentin (once-daily)], alendronate, gabapentin, oxcarbazepine, bactrim [sulfamethoxazole-trimethoprim], and levofloxacin. documented in this encounter [facility] 01-12-2024 History of Presen t illness Narrative Ortho Nurse - Established Patient Intake Room#: 1 ----follow-up from call from [facility] on 12.30.23 that she fractured her patella. Danyelle doesn't recall having a fall more more of a twisting episode when she was with PT. Her ankle started to give out and in order to not injure her operative leg she twisted her right leg. She states she did not feel a pop or anything, she didn't even have pain until days later when she tried to weight bear. She is wearing a brace and in a wheelchair today and rates her pain at a 1. She states she has been non weight bearing and in a brace since. Date: 01/12/2024 1:03 PM Patient: Danyelle Haskins MR#: [id number] : 1955 Age: 68 y.o. Referring Physician: Self, Self Insurance: Payor: MEDICARE / Plan: MEDICARE A AND B / Product Type: *No Product type* / Chief Complaint Patient presents with Right Knee - Pain There were no vitals taken for this visit. Pain 1. Are you having pain? 2. On a scale from 1-10: Recent Labs No results found for: CRP No results found for: SEDRATE Lab Results Component Value Date WBC 3.6 12/02/2023 HGB 9.2 (L) 12/02/2023 HCT 27.6 (L) 12/02/2023 PLATELET 165 12/02/2023 MCV 102.5 (H) 12/02/2023 History Past Medical History: Diagnosis Date Pneumonia 2010 Active advance directive Living Will and Health Care POA Anemia Fe deficiency 30 years ago Ankle swelling bilateral Arthritis Back pain Connective tissue disease non-specific Depression Easy bruising Essential hypertension, benign Insomnia Joint pain Leg pain sciatica radiating to right posterior leg to knee Muscle weakness arms and legs; uses cane or walker for ambulation 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 Numbness feet Osteoarthritis RSD (reflex sympathetic dystrophy) Swelling of multiple joints L knee and right hip Ulcer gastric Use of cane as ambulatory aid Past Surgical History: Procedure Laterality Date REVISION ARTHROPLASTY KNEE Left 11/29/2023 Laterality: Left; Surgeon: New Mcclure MD; Location: [facility] ARTHROPLASTY KNEE TOTAL Right 04/26/2023 Laterality: Right; Surgeon: New Mcclure MD; Location: [facility] REVISION ARTHROPLASTY KNEE Left 11/21/2018 Laterality: Left; Surgeon: New Mcclure MD; Location: [facility] OR EXTRACTION EXTRACAPSULAR CATARACT W/ IMPLANT (ECCE IOL) Bilateral 2018 [facility] TREATMENT OPEN PATELLAR FX W/ INTERNAL [...] needed for Mild Pain. 50 tablet 1 Alpha-Lipoic Acid 200 MG capsule 1 capsule daily. amoxicillin 250 MG capsule Take 2 capsules by mouth every 8 hours. 4 capsules 1 hour before procedure Amoxicillin 500 MG capsule Take 4 capsules 1 hour before procedure 8 capsule 1 apixaban 2.5 MG tablet Take 1 tablet by mouth every 12 hours. This medication is for blood clot prevention 70 tablet 0 Ascorbic acid 500 MG tablet Take 1 tablet by mouth daily. Biotin 1 MG capsule Take by mouth daily. carveDILOL 25 MG tablet Take 1 tablet by mouth 2 times daily. Diclofenac Sodium 1 % Gel gel Diclofenac Diclofenac Sodium Active 4 GM Topical Four times daily October 01, 2020 10:38am 10-01-2020 [facility] ([id number]) Docusate 100 MG capsule Take 1 capsule by mouth 2 times daily. 60 capsule 0 Doxazosin 4 MG tablet Take 1 tablet by mouth daily. Folic acid 1 MG tablet Take 1 tablet by mouth daily. Hopevkksjcq-Mroqtjefi-Riy C-Mn (Glucosamine 1500 Complex) capsule Take by mouth daily. Hydroxychloroquine 200 MG tablet Take 1 tablet by mouth 2 times daily. ibandronate 150 MG Tab Take 1 tablet by mouth every 30 days. Leflunomide 20 MG tablet Take 1 tablet by mouth daily. lisinopril 40 MG tablet Take 1 tablet by mouth daily. Meloxicam 7.5 MG tablet Take 1 tablet by mouth daily. Take with food. 30 tablet 0 methotrexate 2.5 MG tablet every 7 days. methylPREDNIsolone 4 MG Tab Therapy Pack tablet as needed. oxyCODONE 5 MG tablet Take 1-2 tabs po q 4-6 hours prn pain. Wean as tolerated. 30 tablet 0 Oyster Shell Calcium w/D 500-5 MG-MCG tablet Take by mouth daily. pantoprazole [address] Take 1 tablet by mouth every evening at 6 PM. predniSONE 5 MG tablet Take 1 tablet by mouth as needed (for flair up of whole body). pregabalin 25 MG capsule every 12 hours. Sucralfate 1 g tablet Take 1 tablet by mouth 2 times daily. 60 tablet 0 therapeutic multivitamin-minerals tablet Take 1 tablet by mouth at bedtime. 30 tablet 0 tiZANidine 4 MG tablet Take 1 tablet by mouth every 6 hours as needed for Muscle spasms. traMADol 50 MG tablet Take 1 tablet by mouth 3 times daily as needed for Pain. triamterene-hydrochlorothiazide 37.5-25 MG Cap Take 1 capsule by mouth as needed (edema). TURMERIC PO as directed Orally No facility-administered medications prior to visit. Allergies: She is allergic to ciprofloxacin, gralise [gabapentin (once-daily)], alendronate, gabapentin, oxcarbazepine, bactrim [sulfamethoxazole-trimethoprim], and levofloxacin. HPI: Patient is here today for evaluation of her operative knee. She is status post right total knee arthroplasty on 04/26/23. My office received a call from [facility] on 12/30/23 stating patient suffered a fall and fractured her patella. Patient states this was more of a twisting incident instead of fall when she was working with PT for strengthening her left knee revision with extensor mechanism mesh reconstruction on 11/29/23. She reports her ankle started to give out and she attempted to catch herself, this resulted in falling backwards on the bed, not the floor. Denies feeling or hearing a pop within the knee. She states it was several days lateral when she had pain with bearing weight. She presents wearing a brace and in a wheelchair today. States she has been nonweightbearing. Pain of /10. She is here today for further evaluation. PHYSICAL EXAM: The operative lower extremity is soft, nontender, full and supple motion. No pain, no impingement. No instability. Far limits were not tested due to nature of injury. No bruising. No injury to skin. Both extremities have normal neurovascular status. DIAGNOSTIC STUDIES/INTERPRETATION: Plain film radiographs reviewed. She has a cemented right total knee arthroplasty in place with evidence of transverse patella fracture in middle of patella with approx 1cm of displacement. IMPRESSION: 1.) Transverse periprosthetic patellar fracture, right knee. 2.) Stable status post right total knee arthroplasty on 04/26/23. 3.) Left knee revision with extensor mechanism mesh reconstruction on 11/29/23. PLAN: I reviewed my findings with Danyelle. We discussed the diagnosis, radiographs, physical exam findings and treatment options. Discussed her patella fracture along with treatment options. Moving forward, we will continue immobilization of the fracture with TROM, continue DVT prophylaxis with extension to right knee with luz marina viera and Lori. Unfortunately this is a very complex situation as this POC means both legs will be immobilized. May need a extensor reconstruction dependent upon how mobility progresses - if she regains the flexibility she had prior to patellar fracture, then this will not be warranted. Also, depending on how radiographs progress, may need a CT scan in the future. See back on 02/23/24 for both knees and re-assess at that time when is optimal timeframe to start advancing flexion. She is in agreement with the plan of care. All questions were answered to her satisfaction. I have reviewed the findings of the clinical operations support manager and agree with their assessment. Ortho Nurse - Established Patient Intake Room#: 1 ----follow-up from call from [facility] on 12.30.23 that she fractured her patella. Danyelle doesn't recall having a fall more more of a twisting episode when she was with PT. Her ankle started to give out and in order to not injure her operative leg she twisted her right leg. She states she did not feel a pop or anything, she didn't even have pain until days later when she tried to weight bear. She is wearing a brace and in a wheelchair today and rates her pain at a 1. She states she has been non weight bearing and in a brace since. Date: 01/12/2024 1:03 PM Patient: Danyelle Haskins MR#: [id number] : 1955 Age: 68 y.o. Referring Physician: Self, Self Insurance: Payor: MEDICARE / Plan: MEDICARE A AND B / Product Type: *No Product type* / Chief Complaint Patient presents with Right Knee - Pain There were no vitals taken for this visit. Pain 1. Are you having pain? 2. On a scale from 1-10: Recent Labs No results found for: CRP No results found for: SEDRATE Lab Results Component Value Date WBC 3.6 12/02/2023 HGB 9.2 (L) 12/02/2023 HCT 27.6 (L) 12/02/2023 PLATELET 165 12/02/2023 MCV 102.5 (H) 12/02/2023 History Past Medical History: Diagnosis Date Pneumonia 2010 Active advance directive Living Will and Health Care POA Anemia Fe deficiency 30 years ago Ankle swelling bilateral Arthritis Back pain Connective tissue disease non-specific Depression Easy bruising Essential hypertension, benign Insomnia Joint pain Leg pain sciatica radiating to right posterior leg to knee Muscle weakness arms and legs; uses cane or walker for ambulation 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 Numbness feet Osteoarthritis RSD (reflex sympathetic dystrophy) Swelling of multiple joints L knee and right hip Ulcer gastric Use of cane as ambulatory aid Past Surgical History: Procedure Laterality Date REVISION ARTHROPLASTY KNEE Left 11/29/2023 Laterality: Left; Surgeon: New Mcclure MD; Location: [facility] OR ARTHROPLASTY KNEE TOTAL Right 04/26/2023 Laterality: Right; Surgeon: New Mcclure MD; Location: [facility] REVISION ARTHROPLASTY KNEE Left 11/21/2018 Laterality: Left; Surgeon: New Mcclure MD; Location: [facility] EXTRACTION EXTRACAPSULAR CATARACT W/ IMPLANT (ECCE IOL) Bilateral 2018 [facility] TREATMENT OPEN PATELLAR FX W/ INTERNAL FIXATION OR PATELLECTOMY Left 07/18/2017 Laterality: Left; Surgeon: New Mcclure MD; Location: [facility] OR PATELLECTOMY/HEMIPATELLECTOMY Left 07/18/2017 Laterality: Left; [...] needed for Mild Pain. 50 tablet 1 Alpha-Lipoic Acid 200 MG capsule 1 capsule daily. amoxicillin 250 MG capsule Take 2 capsules by mouth every 8 hours. 4 capsules 1 hour before procedure Amoxicillin 500 MG capsule Take 4 capsules 1 hour before procedure 8 capsule 1 apixaban 2.5 MG tablet Take 1 tablet by mouth every 12 hours. This medication is for blood clot prevention 70 tablet 0 Ascorbic acid 500 MG tablet Take 1 tablet by mouth daily. Biotin 1 MG capsule Take by mouth daily. carveDILOL 25 MG tablet Take 1 tablet by mouth 2 times daily. Diclofenac Sodium 1 % Gel gel Diclofenac Diclofenac Sodium Active 4 GM Topical Four times daily October 01, 2020 10:38am 10-01-2020 [facility] ([id number]) Docusate 100 MG capsule Take 1 capsule by mouth 2 times daily. 60 capsule 0 Doxazosin 4 MG tablet Take 1 tablet by mouth daily. Folic acid 1 MG tablet Take 1 tablet by mouth daily. Hvbkxpxilce-Aadxfzfno-Tlz C-Mn (Glucosamine 1500 Complex) capsule Take by mouth daily. Hydroxychloroquine 200 MG tablet Take 1 tablet by mouth 2 times daily. ibandronate 150 MG Tab Take 1 tablet by mouth every 30 days. Leflunomide 20 MG tablet Take 1 tablet by mouth daily. lisinopril 40 MG tablet Take 1 tablet by mouth daily. Meloxicam 7.5 MG tablet Take 1 tablet by mouth daily. Take with food. 30 tablet 0 methotrexate 2.5 MG tablet every 7 days. methylPREDNIsolone 4 MG Tab Therapy Pack tablet as needed. oxyCODONE 5 MG tablet Take 1-2 tabs po q 4-6 hours prn pain. Wean as tolerated. 30 tablet 0 Oyster Shell Calcium w/D 500-5 MG-MCG tablet Take by mouth daily. pantoprazole [address] Take 1 tablet by mouth every evening at 6 PM. predniSONE 5 MG tablet Take 1 tablet by mouth as needed (for flair up of whole body). pregabalin 25 MG capsule every 12 hours. Sucralfate 1 g tablet Take 1 tablet by mouth 2 times daily. 60 tablet 0 therapeutic multivitamin-minerals tablet Take 1 tablet by mouth at bedtime. 30 tablet 0 tiZANidine 4 MG tablet Take 1 tablet by mouth every 6 hours as needed for Muscle spasms. traMADol 50 MG tablet Take 1 tablet by mouth 3 times daily as needed for Pain. triamterene-hydrochlorothiazide 37.5-25 MG Cap Take 1 capsule by mouth as needed (edema). TURMERIC PO as directed Orally No facility-administered medications prior to visit. Allergies: She is allergic to ciprofloxacin, gralise [gabapentin (once-daily)], alendronate, gabapentin, oxcarbazepine, bactrim [sulfamethoxazole-trimethoprim], and levofloxacin. documented in this encounter [facility] 11-03-2023 History of Presen t illness Narrative [...] freezing cold no MEDICAL CLEARANCE, CARDIOLOGY CLEARANCE [facility] 11/11 3071 DIFFICULT IV PLACEMENT Butterfly use in the [...] TRANSFUSION/REACTION Yes, no adverse reaction. CULTURAL OR ADVENTIST BELIEFS THAT WILL AFFECT CARE no DIETARY RESTRICTIONS no CONCERNS FOR PERSONAL SAFETY no Have you been diagnosed with a concussion in the past 6 months? no Have you tested positive for COVID 19? (if pt does breathing is not back to baseline please order CXR) No Have you had your COVID vaccination? no ADVANCE DIRECTIVES Yes, on file with [facility] IF PATIENT HAS NOT BEEN DIAGNOSED WITH [...] 11/03/2023 1010 blood pressure elevated today at [facility]. Reports have white coat syndrome. It's never high like that when I check it at home. Denies headache or complaints. Reports that she will check the BP on arrival home. Encouraged to discuss with pcp if remains elevated, voiced understanding. Discharged ambulatory, gait steady with walker. documented in this encounter [facility] 11-03-2023 Instructions Everton Ball RN - 11/03/2023 10:[address] Mcclure's office will call you for your arrival time, 1-2 business days before your scheduled surgery. Please review your surgery checklist and bring your guide or booklet the day of surgery. Pre-Admission Testing Dept. [phone] Call if you have any changes in [...] the hospital. DIRECTIONS: Park in the front [facility] facing [address]. Enter through the front entrance and [facility] Thank you for allowing us the privilege [...] Yellow - take the day of surgery [place] - hold according to the doctor's instructions [...] times daily October 01, 2020 10:38am 10-01-2020 [facility] ([id number]) STOP 7 DAYS BEFORE YOUR SURGERY LAST DOSE: DATE TIME __ Doxazosin 4 MG tablet 4 mg, Oral, DAILY STOP TAKING 24 hours BEFORE YOUR SURGERY Last Dose: Date Time Folic acid 1 MG tablet 1,000 mcg, Oral, DAILY CONTINUE, but DO NOT take the morning of surgery. Last Dose: Date Time Gckaowrnygv-Qdqauiwwn-Bwz C-Mn (Glucosamine 1500 Complex) capsule Oral, DAILY [...] Dose: Date Time documented in this encounter [facility] 11-03-2023 Miscellaneous Notes Addended by: EVERTON BALL on: 10/27/2023 10:19 AM Modules accepted: Orders Addended by: EVERTON BALL on: 11/01/2023 01:36 PM Modules accepted: Orders documented in this encounter [facility] 11-03-2023 Note Addended by: EVERTON QUIROGA on: 10/27/2023 10:19 AM Modules accepted: Orders [facility] 11-03-2023 Note Addended by: EVERTON QUIROGA on: 11/01/2023 01:36 PM Modules accepted: Orders [facility] 09-01-2023 History of Presen t illness Narrative Ortho Nurse - Established Patient Intake Room#: 1 ----- 4 month f\u R TKR and is doing great. Also concerned about left knee and that it keeps slipping out of place. No pain with the knee just instability and would like it looked at again. Date: 09/01/2023 1:06 PM Patient: Danyelle Haskins MR#: [id number] : 1955 Age: 68 y.o. Referring Physician: [...] CATARACT W/ IMPLANT (ECCE IOL) Bilateral 2018 [facility] TREATMENT OPEN PATELLAR FX W/ INTERNAL [...] times daily October 01, 2020 10:38am 10-01-2020 [facility] ([id number]) Doxazosin 4 MG tablet Take 1 tablet [...] to further discuss surgical interventions for optimal intermediate management. Patient is also here today for [...] a left total knee revision for optimal intermediate manager management. We have discussed in great detail [...] major risks of revision surgery such as kalry-prosthetic fracture, infection, component failure or loosening, nerve [...] nasal MRSA screening, scheduling an appointment for [facility] [place] and the potential surgical date, and reviewing and signing the consent forms. I have reviewed the findings of the clinical operations support manager and agree with their assessment. Ortho Nurse - Established Patient Intake Room#: 1 ----- 4 month f\u R TKR and is doing great. Also concerned about left knee and that it keeps slipping out of place. No pain with the knee just instability and would like it looked at again. Date: 09/01/2023 1:06 PM Patient: Danyelle Haskins MR#: [id number] : 1955 Age: 68 y.o. Referring Physician: [...] CATARACT W/ IMPLANT (ECCE IOL) Bilateral 2017 [facility] TREATMENT OPEN PATELLAR FX W/ INTERNAL [...] times daily October 01, 2020 10:38am 10-01-2020 [facility] ([id number]) Doxazosin 4 MG tablet Take 1 tablet [...] [sulfamethoxazole-trimethoprim], and levofloxacin. documented in this encounter [facility] 05-19-2023 History of Presen t illness Narrative Ortho Nurse - Established Patient Intake Room#: 5 Date: 05/19/2023 2:43 PM Patient: Danyelle Haskins MR#: [id number] : 1955 Age: 67 y.o. 3 wks [...] CATARACT W/ IMPLANT (ECCE IOL) Bilateral 2017 [facility] TREATMENT OPEN PATELLAR FX W/ INTERNAL [...] daily October 01, 2020 10:38am 10-01-2020 [facility] ([id number]) Docusate 100 MG capsule Take 1 capsule [...] daily October 01, 2020 10:38am 10-01-2020 [facility] ([id number]), Disp: , Rfl: Docusate 100 MG capsule, [...] mesh. All pertinent portions of the clinical operations support manager documentation was reviewed and agree. EFREN Logan Ortho Nurse - Established Patient Intake Room#: 5 Date: 05/19/2023 2:43 PM Patient: Danyelle Haskins MR#: [id number] : 1955 Age: 67 y.o. 3 wks [...] CATARACT W/ IMPLANT (ECCE IOL) Bilateral 2018 [facility] TREATMENT OPEN PATELLAR FX W/ INTERNAL [...] times daily October 01, 2020 10:38am 10-01-2020 [facility] ([id number]) Docusate 100 MG capsule Take 1 capsule [...] times daily October 01, 2020 10:38am 10-01-2020 [facility] ([id number]), Disp: , Rfl: Docusate 100 MG capsule, [...] [sulfamethoxazole-trimethoprim], and levofloxacin. documented in this encounter [facility] 08-31-2021 Evaluation note Encounter Date Diagnosis [...] management and focal injections would be appropriate. [facility] Other 05-10-2021 Note [id number] 03-12-2021 NoteCystoscopy with Urethral Dilation ? Voiding [...] if you have a fever over 100 degrees[facility] [place]2021 History of Present illness Narrative* New Mcclure [...] have reviewed the findings of the clinical operations support manager and agree with their assessment. Ortho Nurse Established Patient Intake Room#: 3 F/U from PT, seen 11-19-20, left knee TKA 11-21-18 with extensor mechanism repair, states her pain is a 2 and she is doing much better Date: 03/11/2021 1:59 PM Patient: Danyelle Haskins MR#: [id number] : 1955 Age: 65 y.o. Referring Physician: [...] CATARACT W/ IMPLANT (ECCE IOL) Bilateral 2017 [facility] TREATMENT OPEN PATELLAR FX W/ INTERNAL [...] mouth 3 times daily as needed. Biotin 72966 MCG Tab take 2 tablets by mouth 2 times daily.. Calcium Carb-Cholecalciferol (CALCIUM 600 + D) 600-200 MG-UNIT Tab tablet Take 2.5 tablets by mouthDaily (with lunch). Diclofenac Sodium 1 % Gel gel Diclofenac Diclofenac Sodium Active 4 GM Topical Four times daily October 01, 2020 10:38am 10-01-2020 [facility] ([id number]) ferrous sulfate 325 (65 Fe) MG Tab [...] as needed. , Disp: , Rfl: Biotin 26354 MCG Tab, take 2 tablets by mouth 2 times daily.. , Disp: , Rfl: Calcium Carb-Cholecalciferol (CALCIUM 600 + D) 600-200 MG-UNIT Tab tablet, Take 2.5 tablets by mouth Daily (with lunch). , Disp: , Rfl: Diclofenac Sodium 1 % Gel gel, Diclofenac Diclofenac Sodium Active 4 GM Topical Four times daily October 01, 2020 10:38am 10-01-2020 [facility] ([id number]), Disp: , Rfl: ferrous sulfate 325 (65 [...] 03/11/2021 1:59 PM Patient: Danyelle Haskins MR#: [id number] : 1955 Age: 65 y.o. Referring Physician: [...] CATARACT W/ IMPLANT (ECCE IOL) Bilateral 2017 [facility] TREATMENT OPEN PATELLAR FX W/ INTERNAL [...] mouth 3 times daily as needed. Biotin 80116 MCG Tab take 2 tablets by mouth 2 times daily.. Calcium Carb-Cholecalciferol (CALCIUM 600 + D) 600-200 MG-UNIT Tab tablet Take 2.5 tablets by mouthDaily (with lunch). Diclofenac Sodium 1 % Gel gel Diclofenac Diclofenac Sodium Active 4 GM Topical Four times daily October 01, 2020 10:38am 10-01-2020 [facility] ([id number]) ferrous sulfate 325 (65 Fe) MG Tab [...] as needed. , Disp: , Rfl: Biotin 88430 MCG Tab, take 2 tablets by mouth 2 times daily.. , Disp: , Rfl: Calcium Carb-Cholecalciferol (CALCIUM 600 + D) 600-200 MG-UNIT Tab tablet, Take 2.5 tablets by mouth Daily (with lunch). , Disp: , Rfl: Diclofenac Sodium 1 % Gel gel, Diclofenac Diclofenac Sodium Active 4 GM Topical Four times daily October 01, 2020 10:38am 10-01-2020 [facility] ([id number]), Disp: , Rfl: ferrous sulfate 325 (65 [...] oxcarbazepine; and bactrim [sulfamethoxazole-trimethoprim]. [facility] Diagnosis Left knee pain, unspecified chronicity- Primary Right knee pain, unspecified chronicity [facility] Diagnosis Hx of total knee arthroplasty, right- Primary [facility] noteNo assessment information availableMer[facility] Work Phone: Evaluation note* Diagnosis Hx of total knee arthroplasty, right- Primary Hx of total knee arthroplasty, left [facility]* Diagnosis Preop testing- Primary Preoperative examination, unspecified Abnormal finding of blood chemistry, unspecified Abnormal coagulation profile Failed total left knee replacement, initial encounter [facility] Diagnosis Pain in right knee Pain in joint, lower leg [facility] Right knee pain, unspecified chronicity- Primary [facility] Diagnosis Hx of total knee arthroplasty, left- Primary [facility] Diagnosis Pain in both knees, unspecified chronicity- Primary [facility] Pain in both knees, unspecified chronicity- Primary [facility] Diagnosis Pain in both knees, unspecified chronicity- Primary [facility] Diagnosis Abscess of toe, right- Primary Acquired deformity of left toe [facility] - [facility]* Type Description Date Medical History connective tissue disease Medical History Arthritis Medical History spinal compression Surgical History back surgery Surgical History ganglion cyst Surgical History tonsillectomy Surgical History hysterectomy Surgical History tendon repair Surgical History wrist surgery Surgical History cataracts, bilaterally Surgical History Abdominal Ablation Hospitalization History see surgical hx [facility] Other reason for referral (narrative)* Consultation (Routine) - Patient to Arrange Specialty Diagnoses / Procedures Referred By Contcatie t Referred To Contact Physical Therapy Diagnoses Pain in both knees, unspecified chronicity New Mcclure MD [address] [place] [address] Referral ID Status Reason Start Date Expiration Date V isits Requested Visits Authorized [id number] Patient to Arrange 05/31/2024 06/25/2025 1 1 Scheduling Instructions . 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 Advance Directives/Living Will 11/21/2018 8:22 AM Advance Directives/Living Will 11/21/2018 8:26 AM Latest Code Status on File Code Status Date Activated Date Inactivated Comments Full Code 11/21/2018 2:46 PM Full Code 07/18/2017 4:04 PM 07/21/2017 7:25 PM Documents on File Type Date Recorded 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 Advance Directives/Living Will 11/21/2018 8:22 [...] Code 07/18/2017 4:04 PM 07/21/2017 7:25 PM Date Activated Date Inactivated Comments 11/29/2023 5:14 PM Date Activated Date Inactivated Comments 04/26/2023 2:32 PM 11/29/2023 5:14 PM Date Activated Date Inactivated Comments 11/21/2018 2:46 PM 04/26/2023 2:32 PM Date Activated Date Inactivated Comments 07/18/2017 4:04 PM 07/21/2017 7:25 PM Date Activated Date Inactivated Comments 11/29/2023 5:14 PM Date Activated Date Inactivated Comments 04/26/2023 2:32 PM 11/29/2023 5:14 PM Date Activated Date Inactivated Comments 11/21/2018 2:46 PM 04/26/2023 2:32 PM Date Activated Date Inactivated Comments 07/18/2017 4:04 PM 07/21/2017 7:25 PM Reason for Referral Status Reason Specialty Diagnoses / Procedures Referred By Contact Referred To Contact New Request Diagnoses Pre-op exam Procedures ECG New Mcclure MD [address] [place] [address] Status Reason Specialty Diagnoses / Procedures Referred By Contact Referred To Contact New Request Procedures ACTIVITY TOLERATED Rajinder Green, BUSINESS INSURANCE AGENT-MARTY [address] [place] [address] Status Reason Specialty Diagnoses / Procedures Referre d By Contact Referred To Contact Rajinder Green APRN-CNP [address] [place], [place] [id number] Status Reason Specialty Diagnoses / Procedures Referred By Contact Referred To Contact New Request Diagnoses Hx of total knee arthroplasty, left Procedures XR KNEE LEFT 2 VIEWS XR KNEE LEFT 3 VIEWS Rajinder Green APRN-CNP [address] [place], [place] [id number] Status Reason Specialty Diagnoses / Procedures Referred By Contact Referred To Contact New Request Physical Therapy Diagnoses History of total knee arthroplasty, left Right hip pain New Mcclure MD [address] [place], [place] [id number] Scheduling Instructions . Status Reason Specialty Diagnoses / Procedures Referred By Contact Referred To Contact Schedule Outgoing - Transfer of Care Physical Therapy Diagnoses History of total knee arthroplasty, left New Mcclure MD [address] [place], [place] [id number] Status Reason Specialty Diagnoses / Procedures Referred By Contact Referred To Contact New Request Diagnoses Right hip pain Procedures XR HIP WITH PELVIS RIGHT New Mcclure MD [address] [place], [place] [id number] Status Reason Specialty Diagnoses / Procedures Referred By Contact Referred To Contact New Request Sports Ortho and Primary Care Sports Diagnoses Right hip pain New Mcclure MD [address] [place], [place] [id number] Status Reason Specialty Diagnoses / Procedures Referred By Contact Referred To Contact New Request Diagnoses Right knee pain, unspecified chronicity Procedures LARGE JOINT INJECTION: R knee New Mcclure MD [address] [place], [place] [id number] Status Reason Specialty Diagnoses / Procedures Referred By Contact Referred To Contact New Request Diagnoses Left knee pain, unspecified chronicity Procedures XR KNEE LEFT 2 VIEWS XR KNEE LEFT 3 VIEWS New Mcclure MD [address] [place], [place] [id number] Status Reason Specialty Diagnoses / Procedures Referred By Contact Referred To Contact Pending Review Diagnoses History of total knee arthroplasty, left Procedures XR KNEE LEFT 3 VIEWS New Mcclure MD [address] [place], [place] [id number] Status Reason Specialty Diagnoses / Procedures Referred By Contact Referred To Contact Patient to Arrange Physical Therapy Diagnoses Pain in prosthetic joint, initial encounter New Mcclure MD [address] [place], [place] [id number] Status Reason Specialty Diagnoses / Procedures Referred By Contact Referred To Contact New Request Diagnoses Hx of total knee arthroplasty, left Procedures XR KNEE LEFT 3 VIEWS New Mcclure MD [address] [place], [place] [id number] Status Reason Specialty Diagnoses / Procedures Referred By Contact Referred To Contact Patient to Arrange Physical Therapy Diagnoses History of total knee arthroplasty, left New Mcclure MD [address] [place], [place] [id number] Specialty Diagnoses / Procedures Referred By Contac t Referred To Contact Diagnoses Hx of total knee arthroplasty, right Procedures XR KNEE RIGHT 3 VIEWS Rajinder Green, BUSINESS INSURANCE AGENT-CARVING MACHINE OPERATOR [address] [place], [place] [id number] Referral ID Status Reason Start Date Expiration Date V isits Requested Visits Authorized [id number] New Request 05/11/2023 06/04/2024 1 1 Specialty Diagnoses / Procedures Referred By Contac t Referred To Contact Diagnoses Hx of total knee arthroplasty, right Procedures XR BONE LENGTH STUDY New Mcclure MD [address] [place] [id number] Referral ID Status Reason Start Date Expiration Date V isits Requested Visits Authorized [id number] New Request 08/30/2023 09/23/2024 1 1 Specialty Diagnoses / Procedures Referred By Contac t Referred To Contact Diagnoses Hx of total knee arthroplasty, right Procedures XR KNEE RIGHT 3 VIEWS New Mcclure MD [address] [place] [id number] Referral ID Status Reason Start Date Expiration Date V isits Requested Visits Authorized [id number] New Request 08/30/2023 09/23/2024 1 1 Specialty Diagnoses / Procedures Referred By Contac t Referred To Contact Diagnoses Hx of total knee arthroplasty, left Procedures XR KNEE LEFT 3 VIEWS New Mcclure MD [address] [place] [address] Referral ID Status Reason Start Date Expiration Date V isits Requested Visits Authorized [id number] New Request 08/30/2023 09/23/2024 1 1 Specialty Diagnoses / Procedures Referred By Contac t Referred To Contact Diagnoses Preop testing Procedures PREPARE TO TRANSFUSE RED BLOOD CELLS New Mcclure MD [address] [place] [id number] Referral ID Status Reason Start Date Expiration Date V isits Requested Visits Authorized [id number] New Request 11/01/2023 11/25/2024 1 1 Specialty Diagnoses / Procedures Referred By Contac t Referred To Contact Diagnoses Preop testing Procedures ECG New Mcclure MD [address] [place] [address] Referral ID Status Reason Start Date Expiration Date V isits Requested Visits Authorized [id number] New Request 10/27/2023 11/20/2024 1 1 Specialty Diagnoses / Procedures Referred By Contac t Referred To Contact Diagnoses Right knee pain, unspecified chronicity Procedures XR KNEE RIGHT 3 VIEWS New Mcclure MD [address] [place] [address] Referral ID Status Reason Start Date Expiration Date V isits Requested Visits Authorized [id number] New Request 01/09/2024 02/02/2025 1 1 Specialty Diagnoses / Procedures Referred By Contac t Referred To Contact Diagnoses Hx of total knee arthroplasty, left Procedures XR KNEE LEFT 1-2 VIEWS XR KNEE LEFT 3 VIEWS Rajinder Green, BUSINESS INSURANCE AGENT-MARTY [address] [place] [address] Referral ID Status Reason Start Date Expiration Date V isits Requested Visits Authorized [id number] New Request 02/21/2024 03/17/2025 1 1 Specialty Diagnoses / Procedures Referred By Turner devlin Referred To Contact Diagnoses Hx of total knee arthroplasty, left Procedures XR BONE LENGTH STUDY Rajinder Green, BUSINESS INSURANCE AGENT-CARVING MACHINE OPERATOR [address] [place] [address] Referral ID Status Reason Start Date Expiration Date V isits Requested Visits Authorized [id number] New Request 02/21/2024 03/17/2025 1 1 Instructions * Patient Instructions - Everton Ball RN - 10/13/2018 12:21 PM EST Formatting of this note may be different from the original. Genoveva from Dr Mcclure's office will call you for your arrival time, 1-2 business days before your scheduled surgery. Please review your surgery checklist and bring your Guide or binder the day of surgery. Pre-Admission Testing Dept. [phone] Call if you have any changes in [...] of surgery LAST DOSE: DATE TIME Biotin 25954 MCG Tab take 2 tablets by mouth [...] LAST DOSE: DATE TIME Hydroxychloroquine Sulfate (HYDROXYCHLOROQUINE, [id number],) 200 MG Tab Take 200 mg by [...] reports feeling ready to go to [facility] later today Cognitive Status Examination Orientation Status [...] reach Communication Patient to discharge to [facility] later today Transfer Skill: Sit To Stand, Rehab Eval Ralph (Sit-Stand Transfers) supervision Physical Assist/Nonphysical Assist: Sit/Stand 1 person assist Weight-Bearing Restrictions: Sit/Stand toe touch weight-bearing Assistive Device For Transfer: Sit/Stand 2 wheeled walker Gait Skills, PT Eval Level of Ralph: Gait stand-by assist Weight-Bearing Restrictions: Gait toe touch weight-bearing Assistive Device For Transfer: Gait 2 wheeled walker Gait Distance other (see comments) (60 ft) Gait Analysis, PT Eval Gait Pattern Used swing-to gait Stair Negotiation Level of Ralph: Stair Negotiation unable to perform Clinical Impression [...] training. Maintain frequency yes * Maryam Zapata, [facility],PharmD - 11/24/2018 1:26 PM EST Apixaban (Eliquis) Patient Education / Transition of Care PATIENT: Danyelle Haskins Room/Bed: [facility] Apixaban (Eliquis) Education Patient was provided with Apixaban (Eliquis) Education Sheet. Discussed in detail with patient about what Apixaban is, to take as directed, what to do if a dose is missed, and emphasized that compliance is extremely important to avoid stroke or any other serious event. Additional education was provided regarding side effects that should be reported to their physicianor health care transitions nurse as soon as possible. I also advised the patient to provide an updated medication list to all health sub acute care nurse as certain medications can interact with apixaban. Patient verbally acknowledged an understanding of the information provided. Please contact pharmacyif there are any questions. Signed: Maryam Zapata [facility],PharmD, [facility] Phone: [phone] Date/Time: 11/24/2018 1:26 PM * Krystal Bravo, OT - 11/23/2018 3:04 PM EST Formatting of [...] UE exercises Therapist Information License # [id number] * Tanvi Hernandez, CARVING MACHINE OPERATOR - 11/23/2018 1:43 PM EST Formatting of this note may be different from the original. DAILY PROGRESS NOTE Date of Evaluation: 11/23/18 1:44 PM [facility] LOS: 2 days SUBJECTIVE: Patient seen [...] knee S/p left TKA POD#2 PT OT psychosocial rehabilitation counselor discharge planning DVT prophylaxis Eliquis PT OT SS for dc planning- will likely discharge next 24-48 hours to [facility] GI/DVT prophylaxis with protonix and SCD and [...] assessment and plan and agree with the CARVING MACHINE OPERATOR findings and plan of care as documented. I agree with their findings and plan with any exceptions or additions noted below. Doing well today. Principal Problem: Pain in left knee Active Problems: Obesity: body mass index of 30.0-34.9 Benign hypertension Rheumatoid arthritis GERD (gastroesophageal reflux disease) Synovial hernia * Demarcus Hutchison, AG EQUIPMENT FIELD SERVICE TECHNICIAN - 11/23/2018 11:39 AM EST Formatting of [...] like knee brace had slid down leg. AG EQUIPMENT FIELD SERVICE TECHNICIAN began with readjusting knee brace in proper [...] Transfer Skill: Sit To Stand, Rehab Eval Ralph (Sit-Stand Transfers) contact guard Physical Assist/Nonphysical Assist: Sit/Stand 1 person assist Weight-Bearing Restrictions: Sit/Stand toe touch weight-bearing Assistive Device For Transfer: Sit/Stand 2 wheeled walker Gait Skills, PT Eval Level of Ralph: Gait contact guard Weight-Bearing Restrictions: Gait toe [...] device on. Impression: status post TKA ext [facility] recon PLAN: 1. PT/OT 2. DVT prophylaxis 3. Discharge planning * Demarcus Hutchison, AG EQUIPMENT FIELD SERVICE TECHNICIAN - 11/22/2018 4:07 PM EST Formatting of [...] Transfer Skill: Sit To Stand, Rehab Eval Ralph (Sit-Stand Transfers) contact guard Physical Assist/Nonphysical Assist: Sit/Stand 1 person assist Weight-Bearing Restrictions: Sit/Stand toe touch weight-bearing (pt using NWB on L LE) Assistive Device For Transfer: Sit/Stand 2 wheeled walker Gait Skills, PT Eval Level of Ralph: Gait contact guard Weight-Bearing Restrictions: Gait toe touch weight-bearing (Pt using NWB on L LE) Assistive Device For Transfer: Gait 2 wheeled walker Gait Distance (20ft, 20ft) Gait Analysis, PT Eval Gait Pattern Used swing-to gait Plan Plan for next visit Plan to continue with strengthening and transfers/gait Maintain frequency yes * Aurora Arroyo, STUDENT FINANCIAL SERVICES COUNSELOR - 11/22/2018 12:52 PM EST Call received from [facility] stating they can take patient anytime on Tuesday afternoon or after. * Demarcus Hutchison, AG EQUIPMENT FIELD SERVICE TECHNICIAN - 11/22/2018 11:56 AM EST Formatting of [...] Transfer Skill: Sit To Stand, Rehab Eval Ralph (Sit-Stand Transfers) contact guard Physical Assist/Nonphysical Assist: Sit/Stand 1 person assist Weight-Bearing Restrictions: Sit/Stand toe touch weight-bearing (NWB on L LE) Assistive Device For Transfer: Sit/Stand 2 wheeled walker Gait Skills, PT Eval Level of Ralph: Gait contact guard Weight-Bearing Restrictions: Gait toe touch weight-bearing (pt using NWB on L LE) Assistive Device For Transfer: Gait 2 wheeled walker Gait Distance 25 feet Gait Analysis, PT Eval Gait Pattern Used swing-to gait Plan Plan for next visit Plan to continue with strengthening, transfers/gait, and practice car transfer Maintain frequency yes * Jacey Valdez, NIURKA-CARVING MACHINE OPERATOR - 11/22/2018 10:52 AM EST Formatting of this note may be different from the original. DAILY PROGRESS NOTE Date of Evaluation: 11/22/18 10:53 AM [facility] LOS: 1 day SUBJECTIVE: Patient seen [...] knee S/p left TKA POD#1 PT OT psychosocial rehabilitation counselor discharge planning DVT prophylaxis Eliquis PT OT SS for dc planning GI/DVT prophylaxis with protonix and SCD and Eliquis Associated attestation - Brady Lozoya MD - 11/22/2018 4:50 PM EDMUND Haskins was personally seen and examined. I agree with the examination, assessment, and plan as described below by the DATA INTEGRITY ANALYST with the following additions/exceptions: Feeling well today. [...] with post operative care. * Rajinder Green, NIURKA-CARVING MACHINE OPERATOR - 11/22/2018 8:52 AM EST [...] states that she is currently employed at [employer] in [place]. She stated that prior to the surgery she was completely independent and able to cook, clean and drive. Patient states that her goal upon discharge it to go to an extended care facility to get more therapy for her knee and regain her strength. Patient stated that she wanted to go to the [facility] as it is close to her home. Patient reviewed and signed the Area Nursing facility list for [facility]. CM to make referral. CM to follow. * Krystal Bravo, OT - 11/21/2018 6:00 PM EST Formatting [...] 0 Equipment Available wheeled walker;shower chair;elevated toilet seat;nipple maker;sock-aid;long-handled shoe horn;hand held shower hose Cognitive Status Examination Orientation Status (Cognition) oriented x 4 Level of Consciousness alert Able to Follow Commands (Communication) WNL Personal Safety and Judgment intact Short Term Memory intact Finishing Department Supervisor Memory intact Vision (check all that apply) Vision prescription glasses Sensory Examination Sensory Examination WFL (numbness in bilateral LE at baseline) Range of Motion (ROM) Range of Motion Examination bilateral upper extremity ROM was WFL Bed Mobility Skill: Supine to Sit, Rehab Eval Level of Ralph: Supine/Sit stand-by assist Physical Assist/Nonphysical Assist: Supine/Sit 1 person assist Transfer Skill: Sit to Stand, Rehab Eval Level of Ralph: Sit/Stand contact guard Physical Assist/Nonphysical Assist: Sit/Stand 1 person assist Weight-Bearing Restrictions: Sit/Stand toe touch weight-bearing Assistive Device for Transfer: Sit/Stand wheeled walker Upper Body Dressing Level of Ralph (set up) Lower Body Dressing Level of Ralph moderate assist (50% patients effort) Physical Assist/Nonphysical Assist 1 person assist Assistive Device nipple maker General Therapy Interventions Planned Therapy Interventions (OT [...] Impairment in Daily Activity - [facility] Daily Activity Inpatient Short Form Putting on/Taking [...] Goals Goals For Discharge discharge to [facility] Discussed risk / benefits with patient Therapist Recommendations At Discharge Recommendations OT Services recommended at Discharge Plan Plan Narrative continue with bathing, dressing and transfer training Therapist Information License # [id number] 1. Pt will complete LB dressing min assist for left LE ULZ MARINA hose management and brace 2. Pt [...] (Adult, OB, Peds) Pain Location knee, left (2/10) Pain Management Interventions positioning;declines intervention Cognitive Status [...] Supine to Sit, Rehab Eval Level of Ralph: Supine/Sit stand-by assist Transfer Skill: Sit To Stand, Rehab Eval Ralph (Sit-Stand Transfers) minimum assist (75% patient effort) Weight-Bearing Restrictions: Sit/Stand toe touch weight-bearing Assistive Device For Transfer: Sit/Stand 2 wheeled walker Gait Skills, PT Eval Level of Ralph: Gait contact guard Weight-Bearing Restrictions: Gait toe [...] swelling, and pt reports understanding. PRIOR LEVEL [facility] Basic Mobility Inpatient Short Form Turning over in bed 4 - No Assistance Sitting/standing from chair 4 - No Assistance Moving from lying on back to sitting 4 - No Assistance Moving to and from bed to chair 4 - No Assistance Walk in hospital room 4 - No Assistance Climbing 3-5 steps with a railing 4 - No Assistance PRIOR LEVEL [facility] Mobility Raw Score 24 PRIOR LEVEL [facility] Mobility Functional Limitation/Modifier 0.00% Prior Functional Impairment in Basic Mobility - CH CURRENT [facility] Basic Mobility Inpatient Short Form Turning [...] 2 - A Lot of Assistance CURRENT [facility] Mobility Raw Score 17 CURRENT [facility] Mobility Functional Limitation/Modifier 50.57% Currently Impaired in Basic Mobility - CK Projected [facility] Mobility Raw Score 20 Projected [facility] Mobility Functional Limitation/Modifier 35.83% Projected Functional [...] as able. Therapist Information [place] # [id number] PT Goals: 1. Pt will demonstrate understanding [...] SLR on LLE. PTAs notified. * Rajinder Green, BUSINESS INSURANCE AGENT-CARVING MACHINE OPERATOR - 11/21/2018 2:04 PM EST THIS PATIENT HAS HAD ORTHOPEDIC SURGERY AND IS EXPECTED TO HAVE PAIN REQUIRING NARCOTICS FOR >7 DAYS AND MAY NEED UP TO 12 tabs of oxycodone PER DAY AND THEREFORE 60tabs ARE BEING DISPENSED IN ACCORDANCE WITH POC DISCUSSED WITH DR MCCLURE. in this encounter* Rajinder Green, NIURKA-MARTY - 12/14/2018 3:00 PM EST Formatting of this note may be different from the original. HISTORY OF PRESENT ILLNESS: Danyelle is an established patient of [facility]. She is here today for followup. She [...] per her previous regimen prescribed by her marketing and promotions manager. I will leave this up to the house physician [facility], where she is residing today. She [...] and concerns were addressed to her satisfaction. (DOC:[id number]) Procedures I have reviewed the findings of the clinical operations support manager and agree with their assessment. E[facility] Nurse Established Patient Intake Room#: 4 Date: 12/14/2018 2:47 PM Patient: Danyelle Haskins MR#: [id number] : 1955 Age: 63 y.o. 3 wk [...] CATARACT W/ IMPLANT (ECCE IOL) Bilateral 2018 [facility] TREATMENT OPEN PATELLAR FX W/ INTERNAL [...] mouth 3 times daily as needed. Biotin 24089 MCG Tab take 2 tablets by mouth [...] as needed. , Disp: , Rfl: Biotin 19985 MCG Tab, take 2 tablets by mouth [...] 12/14/2018 2:47 PM Patient: Danyelle Haskins MR#: [id number] : 1955 Age: 63 y.o. 3 wk [...] CATARACT W/ IMPLANT (ECCE IOL) Bilateral 2017 [facility] TREATMENT OPEN PATELLAR FX W/ INTERNAL [...] mouth 3 times daily as needed. Biotin 46385 MCG Tab take 2 tablets by mouth [...] as needed. , Disp: , Rfl: Biotin 97043 MCG Tab, take 2 tablets by mouth [...] have reviewed the findings of the clinical operations support manager and agree with their assessment. New Mcclure MD Ortho Nurse Established Patient Intake Room#: 3 Date: 03/01/2019 2:16 PM Patient: Danyelle Haskins MR#: [id number] : 1955 Age: 63 y.o. 6wk F/U [...] CATARACT W/ IMPLANT (ECCE IOL) Bilateral 2017 [facility] TREATMENT OPEN PATELLAR FX W/ INTERNAL [...] mouth 3 times daily as needed. Biotin 65274 MCG Tab take 2 tablets by mouth [...] as needed. , Disp: , Rfl: Biotin 42412 MCG Tab, take 2 tablets by mouth [...] 03/01/2019 2:16 PM Patient: Danyelle Haskins MR#: [id number] : 1955 Age: 63 y.o. 6wk F/U [...] CATARACT W/ IMPLANT (ECCE IOL) Bilateral 2018 [facility] TREATMENT OPEN PATELLAR FX W/ INTERNAL [...] mouth 3 times daily as needed. Biotin 74096 MCG Tab take 2 tablets by mouth [...] as needed. , Disp: , Rfl: Biotin 09847 MCG Tab, take 2 tablets by mouth [...] have reviewed the findings of the clinical operations support manager and agree with their assessment. New Mcclure MD Ortho Nurse Established Patient Intake Room#: 4 F/U Right hip, feeling better, pain of 5-6 when doing steps, done with PT; Left TKA 11-21-, last PT was yesterday, pain of 1-2 Date: 04/18/2019 4:31 PM Patient: Danyelle Haskins MR#: [id number] : 1955 Age: 63 y.o. Referring Physician: [...] CATARACT W/ IMPLANT (ECCE IOL) Bilateral 2017 [facility] TREATMENT OPEN PATELLAR FX W/ INTERNAL [...] mouth 3 times daily as needed. Biotin 65208 MCG Tab take 2 tablets by mouth [...] as needed. , Disp: , Rfl: Biotin 31641 MCG Tab, take 2 tablets by mouth [...] 04/18/2019 4:31 PM Patient: Danyelle Haskins MR#: [id number] : 1955 Age: 63 y.o. Referring Physician: [...] CATARACT W/ IMPLANT (ECCE IOL) Bilateral 2018 [facility] TREATMENT OPEN PATELLAR FX W/ INTERNAL [...] mouth 3 times daily as needed. Biotin 18701 MCG Tab take 2 tablets by mouth [...] as needed. , Disp: , Rfl: Biotin 06376 MCG Tab, take 2 tablets by mouth [...] perhaps not, though she is closer towards [facility]. She has had previous extensor mechanism reconstruction [...] of the right knee, which demonstrate knee, [id number] arthritis of the lateral compartment, and multiple [...] she like to proceed with surgical revision. (DOC:[id number]) LARGE JOINT INJECTION: R knee Date/Time: 11/21/2019 [...] have reviewed the findings of the clinical operations support manager and agree with their assessment. New Mcclure MD Ortho Nurse Established Patient Intake Room#: 3---1 year post-op check for left TKA . She has been doing well. Date: 11/21/2019 1:38 PM Patient: Danyelle Haskins MR#: [id number] : 1955 Age: 64 y.o. Referring Physician: [...] CATARACT W/ IMPLANT (ECCE IOL) Bilateral 2017 [facility] TREATMENT OPEN PATELLAR FX W/ INTERNAL [...] mouth 3 times daily as needed. Biotin 33900 MCG Tab take 2 tablets by mouth [...] (once-daily)]; alendronate; gabapentin; and oxcarbazepine. * Gisella AdairBANG - 11/21/2019 1:10 PM EST Ortho Nurse Established Patient Intake Room#: 3---1 year post-op check for left TKA . She has been doing well. Date: 11/21/2019 1:38 PM Patient: Danyelle Haskins MR#: [id number] : 1955 Age: 64 y.o. Referring Physician: [...] CATARACT W/ IMPLANT (ECCE IOL) Bilateral 2017 [facility] TREATMENT OPEN PATELLAR FX W/ INTERNAL [...] mouth 3 times daily as needed. Biotin 11049 MCG Tab take 2 tablets by mouth [...] have reviewed the findings of the clinical operations support manager and agree with their assessment. Ortho Nurse Established Patient Intake Room#: 2 2 year Left TKA 11-21-18, pain of 2, cannot straighten her leg and it varinder, Amoxicillin was ordered today Date: 11/19/2020 2:31 PM Patient: Danyelle Haskins MR#: [id number] : 1955 Age: 65 y.o. Referring Physician: [...] CATARACT W/ IMPLANT (ECCE IOL) Bilateral 2018 [facility] TREATMENT OPEN PATELLAR FX W/ INTERNAL [...] Take 500 mg by mouth daily. Biotin 50242 MCG Tab take 2 tablets by mouth 2 times daily.. Calcium Carb-Cholecalciferol (CALCIUM 600 + D) 600-200 MG-UNIT Tab tablet Take 2.5 tablets by mouthDaily (with lunch). Diclofenac Sodium 1 % Gel gel Diclofenac Diclofenac Sodium Active 4 GM Topical Four times daily October 01, 2020 10:38am 10-01-2020 [facility] ([id number]) ferrous sulfate 325 (65 Fe) MG Tab [...] by mouth daily., Disp: , Rfl: Biotin 17650 MCG Tab, take 2 tablets by mouth 2 times daily.. , Disp: , Rfl: Calcium Carb-Cholecalciferol (CALCIUM 600 + D) 600-200 MG-UNIT Tab tablet, Take 2.5 tablets by mouth Daily (with lunch). , Disp: , Rfl: Diclofenac Sodium 1 % Gel gel, Diclofenac Diclofenac Sodium Active 4 GM Topical Four times daily October 01, 2020 10:38am 10-01-2020 [facility] ([id number]), Disp: , Rfl: ferrous sulfate 325 (65 [...] 11/19/2020 2:31 PM Patient: Danyelle Haskins MR#: [id number] : 1955 Age: 65 y.o. Referring Physician: [...] CATARACT W/ IMPLANT (ECCE IOL) Bilateral 2017 [facility] TREATMENT OPEN PATELLAR FX W/ INTERNAL [...] Take 500 mg by mouth daily. Biotin 74208 MCG Tab take 2 tablets by mouth 2 times daily.. Calcium Carb-Cholecalciferol (CALCIUM 600 + D) 600-200 MG-UNIT Tab tablet Take 2.5 tablets by mouthDaily (with lunch). Diclofenac Sodium 1 % Gel gel Diclofenac Diclofenac Sodium Active 4 GM Topical Four times daily October 01, 2020 10:38am 10-01-2020 [facility] ([id number]) ferrous sulfate 325 (65 Fe) MG Tab [...] by mouth daily., Disp: , Rfl: Biotin 46105 MCG Tab, take 2 tablets by mouth 2 times daily.. , Disp: , Rfl: Calcium Carb-Cholecalciferol (CALCIUM 600 + D) 600-200 MG-UNIT Tab tablet, Take 2.5 tablets by mouth Daily (with lunch). , Disp: , Rfl: Diclofenac Sodium 1 % Gel gel, Diclofenac Diclofenac Sodium Active 4 GM Topical Four times daily October 01, 2020 10:38am 10-01-2020 [facility] ([id number]), Disp: , Rfl: ferrous sulfate 325 (65 [...] have reviewed the findings of the clinical operations support manager and agree with their assessment. New Mcclure MD Ortho Nurse Established Patient Intake Room#: 3 6 week F/U left knee ext mechanism repair, no C/O pain Date: 01/03/2019 3:26 PM Patient: Danyelle Haskins MR#: [id number] : 1955 Age: 63 y.o. Referring Physician: [...] CATARACT W/ IMPLANT (ECCE IOL) Bilateral 2018 [facility] TREATMENT OPEN PATELLAR FX W/ INTERNAL [...] mouth 3 times daily as needed. Biotin 14498 MCG Tab take 2 tablets by mouth [...] as needed. , Disp: , Rfl: Biotin 99354 MCG Tab, take 2 tablets by mouth [...] 01/03/2019 3:26 PM Patient: Danyelle Haskins MR#: [id number] : 1955 Age: 63 y.o. Referring Physician: [...] CATARACT W/ IMPLANT (ECCE IOL) Bilateral 2018 [facility] TREATMENT OPEN PATELLAR FX W/ INTERNAL [...] mouth 3 times daily as needed. Biotin 94777 MCG Tab take 2 tablets by mouth [...] as needed. , Disp: , Rfl: Biotin 04401 MCG Tab, take 2 tablets by mouth [...] left- Primary Hospital Course * Tanvi Hernandez, CARVING MACHINE OPERATOR - 11/24/2018 11:21 AM EST Formatting of this note may be different from the original. Discharge Summary Name: Danyelle Haskins Age: 63 y.o. Birthday: 1955 Admit Date: 11/21/2018 8:19 AM Discharge Date: 11/24/2018 Brief Summary of Hospital Course: Pain in left knee S/p left TKA POD#3 PT OT psychosocial rehabilitation counselor discharge planning DVT prophylaxis Kandisquis Will dc to SNF for additional therapy [...] % LIQD Commonly known as: HIBICLENS hydroxychloroquine ([id number]) 200 MG TABS leflunomide 20 MG TABS [...] as needed. Commonly known as: LIORESAL Biotin 96626 MCG TABS take 2 tablets by mouth [...] tolerated. Discharge Follow-up: New Mcclure MD [address] [id number] In 3 weeks Discharge Disposition: Patient will be discharged in stable condition. Discharge Time: Including assessment, planning, and medication reconciliation was greater than 35 min. Tanvi Hernandez DNP completing Discharge Summary for Dr. Vance Please note Portions of this note utilized [employer] dictation software, please excuse any typographical or grammatical errors. Associated attestation - Arlyn Vance, DO - 11/24/2018 4:16 PM EST Patient [...] be removed by a nurse at the [facility] 10-14 days after surgery. Your surgery d [...] - 11/24/2018 5:16 PM EST Contact Office ([phone]) if: > Total Knee ROM < 90 [...] Care Everywhere. * Acetaminophen tablets or caplets (Bruneian) * Apixaban oral tablets (Bruneian) * Docusate capsules (Bruneian) * Oxycodone tablets or capsules (Bruneian) in this encounter Additional Source Comments INFORMATION SOURCE (unrecogn ized section and content) DATE CREATED AUTHOR 05/02/2018 [facility] DATE CREATED AUTHOR AUTHOR'S ORGANIZ ATION 05/02/2018 [facility] DATE CREATED AUTHOR AUTHOR'S ORGANIZ ATION 05/05/[address] [facility] DATE CREATED AUTHOR AUTHOR'S ORGANIZ ATION 03/22/2020 [facility] DATE CREATED AUTHOR AUTHOR'S ORGANIZ ATION 02/01/2022 [facility] DATE CREATED AUTHOR AUTHOR'S ORGANIZ ATION 02/13/2023 [facility] DATE CREATED AUTHOR AUTHOR'S ORGANIZ ATION 07/09/2023 [facility] DATE CREATED AUTHOR AUTHOR'S ORGANIZ ATION 04/27/2024 [facility] DATE CREATED AUTHOR AUTHOR'S ORGANIZ ATION 08/18/2024 [facility] EPIC Reason for Visit (unrecogniz ed section and content) Reason Comments Preoperative Nurse Assessment Surgery sc heduled 11/21/18 Status Reason Specialty Diagnoses / Procedures Referre d By Contact Referred To Contact Diagnoses 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] New Mcclure MD [address] [place] [address] Status Reason Specialty Diagnoses / Procedures Referred By Contact Referred To Contact New Request Diagnoses Hx of total knee arthroplasty, left Procedures XR KNEE LEFT 2 VIEWS XR KNEE LEFT 3 VIEWS Rajinder Green APRN-CARVING MACHINE OPERATOR [address] [place] [address] Reason Comments Post Op Visit Reason Comments Leg Swelling Reason Comments Follow-up Post Op Visit Status Reason Specialty Diagnoses / Procedures Referred By Contact Referred To Contact New Request Diagnoses Left knee pain, unspecified chronicity Procedures XR KNEE LEFT 2 VIEWS XR KNEE LEFT 3 VIEWS New Mcclure MD [address] [place], [place] [phone] Reason Comments Follow-up Status Reason Specialty Diagnoses / Procedures Referred By Contact Referred To Contact Pending Review Diagnoses History of total knee arthroplasty, left Procedures XR KNEE LEFT 3 VIEWS New Mcclure MD [address] [place], [place] [phone] Reason Comments Post Op Visit Reason Comments Follow-up Reason Comments Skin Problem Status Reason Specialty Diagnoses / Procedures Referred By Contact Referred To Contact New Request Diagnoses Hx of total knee arthroplasty, left Procedures XR KNEE LEFT 3 VIEWS New Mcclure MD [address] [place] [phone] Status Reason Specialty Diagnoses / Procedures Referred By Contact Referred To Contact New Request Diagnoses Right hip pain Procedures XR HIP WITH PELVIS RIGHT New Mcclure MD [address] [place] [phone] Reason Comments Follow-up Specialty Diagnoses / Procedures Referred By Contac t Referred To Contact Diagnoses Hx of total knee arthroplasty, right Procedures XR KNEE RIGHT 3 VIEWS Rajinder Green, BUSINESS INSURANCE AGENT-CARVING MACHINE OPERATOR [address] [place] [id number] Referral ID Status Reason Start Date Expiration Date V isits Requested Visits Authorized [id number] New Request 05/11/2023 06/04/2024 1 1 Specialty Diagnoses / Procedures Referred By Contac t Referred To Contact Diagnoses Hx of total knee arthroplasty, right Procedures XR BONE LENGTH STUDY New Mcclure MD [address] [place] [address] Referral ID Status Reason Start Date Expiration Date V isits Requested Visits Authorized [id number] New Request 08/30/2023 09/23/2024 1 1 Reason Comments Pain Reason Comments Preoperative Assessment LTKA revision w/ poss extensor mechanism reconstruction 11/29 SAF Pg *PAT ONLY Specialty Diagnoses / Procedures Referred By Contac t Referred To Contact Diagnoses Preop testing Procedures PREPARE TO TRANSFUSE RED BLOOD CELLS New Mcclure MD [address] [place] [phone] Referral ID Status Reason Start Date Expiration Date V isits Requested Visits Authorized [id number] New Request 11/01/2023 11/25/2024 1 1 Specialty Diagnoses / Procedures Referred By Contac t Referred To Contact Diagnoses Hx of total knee arthroplasty, left Procedures XR KNEE LEFT 1-2 VIEWS XR KNEE LEFT 3 VIEWS Rajinder Green, BUSINESS INSURANCE AGENT-CARVING MACHINE OPERATOR [address] [place] [phone] Referral ID Status Reason Start Date Expiration Date V isits Requested Visits Authorized [id number] New Request 12/20/2023 01/13/2025 1 1 Specialty Diagnoses / Procedures Referred By Contac t Referred To Contact Diagnoses Right knee pain, unspecified chronicity Procedures XR KNEE RIGHT 3 VIEWS New Mcclure MD [address] [place] [address] 117[address] Referral ID Status Reason Start Date Expiration Date V isits Requested Visits Authorized [id number] New Request 01/09/2024 02/02/2025 1 1 Reason Comments Pain Specialty Diagnoses / Procedures Referred By Contac t Referred To Contact Diagnoses Hx of total knee arthroplasty, left Procedures XR BONE LENGTH STUDY Rajinder Green, BUSINESS INSURANCE AGENT-CARVING MACHINE OPERATOR [address] [place] [phone] Referral ID Status Reason Start Date Expiration Date V isits Requested Visits Authorized [id number] New Request 02/21/2024 03/17/2025 1 1 Reason Comments Follow-up Reason Comments Follow-up 14d s/p I&d Care Teams (unrecognized sec tion and content) Pack Puller Relationship Specialty Start Date End Date Hoy, Yulisa M, MD [address] [place] [address] [place] [address] PCP - General Family Medicine 03/18/23 Pack Puller Relationship Specialty Start Date End Date Yulisa Batres MD [address] [place] [address] [place] [address] PCP - General Family Medicine 03/18/23 Pack Puller Relationship Specialty Start Date End Date Yulisa Batres MD [address] [place] [address] [place] [address] PCP - General Family Medicine 03/18/23 Pack Puller Relationship Specialty Start Date End Date Yulisa Batres MD [address] [place] [address] [place] [address] PCP - General Family Medicine 03/18/23 Pack Puller Relationship Specialty Start Date End Date Yulisa Batres MD [address] [place] [address] [place] [address] PCP - General Family Medicine 03/18/23 Pack Puller Relationship Specialty Start Date End Date Yulisa Batres MD [address] [place] [address] [place] [address] PCP - General Family Medicine 03/18/23 Pack Puller Relationship Specialty Start Date End Date Yulisa Batres MD [address] [place] [address] [place] [address] PCP - General Family Medicine 03/18/23 Pack Puller Relationship Specialty Start Date End Date Yulisa Batres MD [address] [place] [address] [place] [address] PCP - General Family Medicine 03/18/23 Pack Puller Relationship Specialty Start Date End Date Yulisa Batres MD [address] [facility] [place] [address] PCP - General Family Medicine 03/18/23 Pack Puller Relationship Specialty Start Date End Date Yulisa Batres MD [address] [facility] [place] [address] PCP - General Family Medicine 03/18/23 Pack Puller Relationship Specialty Start Date End Date Yulisa Batres MD [address] [facility] [place] [address] PCP - General Family Medicine 03/18/23 Pack Puller Relationship Specialty Start Date End Date Yulisa Batres MD [address] [facility] [place] [address] PCP - General Family Medicine 03/18/23 Pack Puller Relationship Specialty Start Date End Date Yulisa Batres MD [address] [facility] [place] [address] PCP - General Family Medicine 03/18/23 Pack Puller Relationship Specialty Start Date End Date Yulisa Batres MD [address] [facility] [place] [address] PCP - General Family Medicine 03/18/23 Pack Puller Relationship Specialty Start Date End Date Yulisa Batres MD [address] [facility] [address] [place] [address] PCP - General 07/06/23 Gaby Christianson NP [address] [place], [place] [address] [address] Nurse Practitioner Neurology 01/26/24 Darren Monaco MD [address] [facility] [address] [place] [address] Referring Physician Rheumatology 07/31/24 Pack Puller Relationship Specialty Start Date End Date Yulisa Batres MD [address] [place] [address] PCP - General 07/06/23 Gaby Christianson NP [address] [place] [address] Nurse Practitioner Neurology 01/26/24 Darren Monaco MD [address] [facility] [address] [place] [address] Referring Physician Rheumatology 07/31/24 Goals (unrecognized section and content) Goals may [...] BE BASED ON THE PRIMARY CLINICAL RECORDS. [facility]. provides no warranty or guarantee of the accuracy or completeness of information in this document.
[2024-08-30 08:20] LABS: Hematocrit 34.7 % (36.0-48.0); Hemoglobin 11.2 g/dL (12.0-16.0); Mean Corpuscular HGB Conc 32.3 g/dL (29.9-35.2); Mean Corpuscular Hemoglobin 32.2 pg (26.7-34.0); Mean Corpuscular Volume 99.7 fL (81.0-99.0); Mean Platelet Volume 8.9 fL (9.5-13.5); Platelet Count 197 10^3/uL (150-450); Red Blood Count 3.48 10^6/uL (4.20-5.40); White Blood Count 3.1 10^3/uL (4.0-11.0)
[2024-08-30 08:47] LABS: Basophils Abs Manual 0.03 10^3/uL (0.00-0.10); Eosinophils Absolute Manual 0.09 10^3/uL (0.00-0.70); Lymphocytes Absolute Manual 0.58 10^3/uL (1.20-3.80); Monocytes Absolute Manual 0.37 10^3/uL (0.30-0.80); Segmented Neut Absolute Manual 2.01 10^3/uL (1.4-6.5)
[2024-08-30 08:48] LABS: Anisocytosis 1+
[2024-08-30 09:13] LABS: Alanine Aminotransferase 20 U/L (14-59); Albumin Globulin Ratio 1.1; Albumin Level 3.2 g/dL (3.4-5.0); Alkaline Phosphatase 67 U/L (46-116); Anion Gap 13.6; Aspartate Amino Transferase 20 U/L (15-37); BUN Creatinine Ratio 21.2; Bilirubin Total 0.6 mg/dL (0.2-1.0); Calcium 8.2 mg/dL (8.5-10.1); Carbon Dioxide 28.4 mmol/L (21.0-32.0); Chloride 107 mmol/L (98-107); Chol HDL Ratio 2.8; Cholesterol 170 mg/dL (<=200); Estimated GFR (African America >60 (>=60 mL/min/1.73m^2); Estimated GFR (Non-African Ame >60 (>=60 mL/min/1.73m^2); Free T3 2.84 pg/mL (2.18-3.98); Glucose 87 mg/dL (74-106); HDL Cholesterol 60 mg/dL (40-60); LDL Cholesterol Calculated 91.4 mg/dL; Sodium 145 mmol/L (136-145); Thyroid Stimulating Hormone 1.864 uIU/mL (0.358-3.740); Total Protein 6.2 g/dL (6.4-8.2); Triglycerides 93 mg/dL (<=150); VLDL CHOLESTEROL 18.6 mg/dL
[2024-08-30 10:14] LABS: Estimated Average Glucose 108 mg/dL; Glycohemoglobin A1C 5.4 % (4.5-6.2)
== END 2024-08-30 07:49 | disposition home or self-care (01) ==
LOC: LAB 07:50
PROVIDERS: PCP Family Medicine; Visit Provider Family Medicine
DX: M17.9 Osteoarthritis of knee, unspecified (principal); I10 Essential (primary) hypertension; E03.9 Hypothyroidism, unspecified; K21.9 Gastro-esophageal reflux disease without esophagitis; E78.00 Pure hypercholesterolemia, unspecified; R73.09 Other abnormal glucose; D64.9 Anemia, unspecified; E55.9 Vitamin D deficiency, unspecified
CPT/HCPCS: 36415; 80053; 80061; 82306; 83036; 83540; 84436; 84443; 84481; 85007; 85027

== ENCOUNTER 2024-09-03 08:16 | Outpatient (OUT) | payer MEDICARE, BC, SELFPAY ==
--- NOTE | 2024-09-03 08:18 | MM_ITS ---
Patient Name: YELENA HASKINS MR#: [id number] : 1955 Exam Date: 09/03/2024 Ordering Doctor: DR Stevie Hoyos . RADIOLOGY REPORT PROCEDURE: MM TOMOSYNTHESIS SCREENING BI COMPARISON: MM TOMOSYNTHESIS SCREENING BI, 09/02/2023. INDICATIONS: Screening Calculator Name NCI Breast Cancer Risk Assessment Tool 5 Year Breast Cancer Risk 1.90% Lifetime Breast Cancer Risk 5.40% Personal Breast Cancer No Personal Ovarian Cancer No Treatments None Family Cancers Father with stomach cancer at age 55; Sister with thyroid cancer at age ~50. LOCATION: [facility] BREAST COMPOSITION: There are scattered areas of fibroglandular density. FINDINGS: DIAGNOSTIC CATEGORY 1--NEGATIVE. NO CHANGE FROM COMPARISON ASSESSMENT. Scattered benign-appearing calcifications are present. Scattered benign-appearing lymph nodes are present. RIGHT BREAST: No significant suspicious finding. LEFT BREAST: No significant suspicious finding. RECOMMENDATIONS: ROUTINE MAMMOGRAM AND CLINICAL EVALUATION IN 12 MONTHS. PLEASE NOTE: A NORMAL MAMMOGRAM DOES NOT EXCLUDE THE POSSIBILITY OF BREAST CANCER. A CLINICALLY SUSPICIOUS PALPABLE LUMP SHOULD BE BIOPSIED. Dictated by: Felix Sandoval MD on 09/03/2024 at 10:39 Approved by: Felix Sandoval MD on 09/03/2024 at 10:44
--- OUTSIDE RECORDS SUMMARY | 2024-09-03 08:23 | XMS_ITS | CCD ---
Author Organization [facility] [employer] Care Team Providers Care Pocketbook Maker Name Role Phone Wood, Star A Unavailable Unavailable Wood, Star A Unavailable Unavailable Wood, Star A Unavailable Unavailable Wood, Star A Unavailable Unavailable FOSTER, NEW Unavailable Unavailable FOSTER, NEW Unavailable Unavailable BROWNSTEPHEN TORRES Unavailable Unavailable ARLYN VANCE Unavailable Unavailable FOSTER, NEW Unavailable Unavailable DAYRON ZAVALA Unavailable Unavailable Salomón Gonzalez Unavailable Salomón Gonzalez Primary Care Provider [phone] Salomón Gonzalez Primary Care Provider [phone] Salomón Gonzalez DO Primary Care Provider Stephen [...] MONACO, DR BANKS Consulting Unavailable MONACO, DR BANSK Admitting Unavailable MONACO, DR BANKS Attending Unavailable HOY ., DR MÁRQUEZ Primary Care Unavailable HOY ., DR MÁRQUEZ Admitting Unavailable HOY ., DR MÁRQUEZ Attending Unavailable HOY ., DR MÁRQUEZ Consulting Unavailable HOY ., DR MÁRQUEZ Primary Care Unavailable ZIEBER, DR CHARO Charles Consulting Unavailable Yulisa Batres MD Primary Care Provider [phone] Yulisa Batres MD Primary Care Provider [phone] Mary Resendez Admitting Unavailable Mal, Mary Attending [...] OCONNELL, Yulisa Saavedra Primary Care Provider Sammy MATERNITY NURSE, Gaby Unavailable Darren Monaco MD Unavailable Allergies Allergy Classification Reported Allergen(s) Allergy Type Date of Onset Reaction(s) Facility Alendronate (1 source) Alendronate Drug Allergy 018 Abdominal Discomfort, Dyspepsia [facility] Anti-Epileptic Agents (3 sources) gabapentin Drug Allergy 018 Nausea and Vomiting, Blisters [facility] Sulfamethoxazole / Trimethoprim (1 source) Sulfamethoxazole / Trimethoprim Drug Allergy 021 Myalgia [facility] (20 sources) Alendronate Drug Allergy 018 Abdominal Discomfort, Dyspepsia, Rash [facility] Work Phone: (20 sources) gabapentin Drug Allergy 018 Nausea and Vomiting, Nausea Only, Rash [facility] Work Phone: (20 sources) gabapentin Drug Allergy 018 Blisters [facility] Work Phone: (20 sources) OXcarbazepine Drug Allergy 018 Nausea and Vomiting [facility] Work Phone: (18 sources) Ciprofloxacin Drug Allergy 021 Unknown, Unknown Reaction [facility] (20 sources) levoFLOXacin Drug Allergy 023 Unknown [employer] Other (20 sources) Sulfamethoxazole / Trimethoprim Drug Allergy 021 Myalgia [employer] Other (1 source) Alendronate Drug Allergy [facility] Rep[facility] (1 source) gabapentin Drug Allergy [facility] (1 source) gabapentin Drug Allergy [facility] (1 source) OXcarbazepine Drug Allergy [facility] (2 sources) Alendronate; Translations: [alendronate sodium] Drug Allergy Unknown Reaction [facility] (6 sources) Sulfamethoxazole; Translations: [sulfamethoxazole] Drug Allergy Weakness [facility] (6 sources) Trimethoprim; Translations: [trimethoprim] Drug Allergy Weakness [facility] (1 source) Ciprofloxacin Drug Allergy [facility] Repository (1 source) gabapentin Drug Allergy [facility] Repository (1 source) OXcarbazepine Drug Allergy [facility] Repository (17 sources) Oxcarbazepine Propensity to adverse reactions to drug Nausea and Vomiting, Rash [facility] Medications Current Medications Medication Drug Class(es) [...] May 07, 2021 12:00am Start: 10-01-2020 take 85626 ug by thuy th twice daily Biotin Active 51095 MCG PO Twice daily October 01, 2020 1:00am biotin 1 MG caps ule Take by mouth Daily Active take [address] [facility] twice daily Biotin 50587 MCG Tab Take 2 tablets by mouth [...] Active Start: 12-21-2022 [facility] carveDILOL 12.5 MG [...] 1 07/01/2018 Active D-BIOTIN (18 sources) Biotin 16238 MCG Tab take 2 tablets by mouth 2 times daily.. 0 Active Biotin 98563 MCG Tab take 2 tablets by mouth [...] times daily October 01, 2020 10:38am 10-01-2020 [facility] ([id number]) 10/01/2020 Active Start: 10-01-2020 Diclofenac Sod ium 1 % Gel gel Diclofenac Diclofenac Sodium Active 4 GM Topical Four times daily October 01, 2020 10:38am 10-01-2020 [facility] ([id number]) 0 10/01/2020 Active Start: 10-01-2020 apply 4 [...] Active docusate sodium 50 mg / sennosides, group home 8.6 mg oral tablet (1 source) Start: [...] capsule Take by mouth daily. 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 PERFORMED AT [facility] Performed By: #### A CBC, CMPF, PT #### Testing performed at [facility] [address] [place] [address] *RFLX-FUNGUSon 12-29-2023 RESULT 1 Comment [facility] Comment on above: Result Comment: No y east or mold isolated after 4 weeks. PERFORMED AT [facility] Performed By: #### Z CHARLEY COOPER #### Testing performed at [facility] [address] [place] [address] [place] [address] RESULT 1 Comment Normal [facility] Comment on above: Result Comment: No y east or mold isolated after 4 weeks. PERFORMED AT [facility] Performed By: #### A CBC, CMPF, PT #### Testing performed at [address] [address] FUNGUS CULTUREon 12-29-2023 FUNGUS CULTURE Final report Normal [facility] Comment on above: Result Comment: PERF ORMED AT [facility] Performed By: #### Z KENNETH LFUNGC #### Testing performed at [facility] [address] [place] [address] [place] [address] Performed By: #### A CBC, CMPF, PT #### Testing performed at [address] [address] CBCon 12-02-2023 ABSOLUTE BAS 0.0 10*3/uL Normal 0.0-0.2 [facility] Comment on above: Performed By: #### A CBC, CMPF, PT #### Testing performed at [address] [place] [address] ABSOLUTE EOS 0.0 10*3/uL Normal 0.0-0.7 [facility] Comment on above: Performed By: #### A CBC, CMPF, PT #### Testing performed at [address] [place] [address] ABSOLUTE NEUTROPHIL COUNT 2.4 10*3/uL Normal 1.4-6.5 [facility] Comment on above: Performed By: #### A CBC, CMPF, PT #### Testing performed at [address] [place] [address] Basophils/100 WBC (Bld) 0.3 % Normal 0.0-2.0 [facility] Comment on above: Performed By: #### A CBC, CMPF, PT #### Testing performed at [address] [place] [address] DTYPE AUTO DIFF Normal [facility] Comment on above: Performed By: #### A CBC, CMPF, PT #### Testing performed at [address] [address] Eosinophils/100 WBC (Bld) 0.9 % Normal 0.0-11.0 [facility] Comment on above: Performed By: #### A CBC, CMPF, PT #### Testing performed at [address] [address] Lymphocytes (Bld) [#/Vol] 0.6 10*3/uL Low 1.2-3.4 [facility] Comment on above: Performed By: #### A CBC, CMPF, PT #### Testing performed at [address] [address] Lymphocytes/100 WBC (Bld) 17.6 % Low 20.0-55.0 [facility] Comment on above: Performed By: #### A CBC, CMPF, PT #### Testing performed at [address] [address] Monocytes (Bld) [#/Vol] 0.5 10*3/uL Normal 0.0-0.7 [facility] Comment on above: Performed By: #### A CBC, CMPF, PT #### Testing performed at [address] [address] Monocytes/100 WBC (Bld) 14.6 % High 0.0-10.0 [facility] Comment on above: Performed By: #### A CBC, CMPF, PT #### Testing performed at [address] [address] Neutrophils/100 WBC (Bld) 66.6 % Normal 37.0-75.0 [facility] Comment on above: Performed By: #### A CBC, CMPF, PT #### Testing performed at [address] [address] Erythrocyte distribution width (RBC) [Ratio] 14.2 % Normal 11.5-14.5 [facility] Comment on above: Performed By: #### A CBC, CMPF, PT #### Testing performed at [address] [address] Hematocrit (Bld) [Volume fraction] 27.6 % Low 36.0-48.0 [facility] Comment on above: Performed By: #### A CBC, CMPF, PT #### Testing performed at [address] [address] Hemoglobin (Bld) [Mass/Vol] 9.2 g/dL Low 12.0-16.0 [facility] Comment on above: Performed By: #### A CBC, CMPF, PT #### Testing performed at [address] [address] MCH (RBC) [Entitic mass] 34.3 pg Normal 26.0-35.0 [facility] Comment on above: Performed By: #### A CBC, CMPF, PT #### Testing performed at [address] [address] MCHC (RBC) [Mass/Vol] 33.4 g/dL Normal 27.0-37.0 [facility] Comment on above: Performed By: #### A CBC, CMPF, PT #### Testing performed at [address] [address] MCV (RBC) [Entitic vol] 102.5 fL High 80.0-100.0 [facility] Comment on above: Performed By: #### A CBC, CMPF, PT #### Testing performed at [address] [address] Platelet mean volume (Bld) [Entitic vol] 7.3 fL Low 7.4-11.0 [facility] Comment on above: Performed By: #### A CBC, CMPF, PT #### Testing performed at [address] [address] Platelets (Bld) [#/Vol] 165 10*3/uL Normal 130-400 [facility] Comment on above: Performed By: #### A CBC, CMPF, PT #### Testing performed at [address] [address] RBC (Bld) [#/Vol] 2.69 10*6/uL Low 4.0-5.4 [facility] Comment on above: Performed By: #### A CBC, CMPF, PT #### Testing performed at [address] [address] WBC (Bld) [#/Vol] 3.6 10*3/uL Normal 3.6-11.0 [facility] Comment on above: Performed By: #### A CBC, CMPF, PT #### Testing performed at [address] [address] AFB SMEARon 12-01-2023 ACID FAST SMEAR Negative Normal [facility] Comment on above: Result Comment: [facility] Performed By: #### A CBC, CMPF, PT #### Testing performed at [address] [address] BMP FASTINGon 12-01-2023 Anion gap [Moles/Vol] 7 mmol/L Normal [facility] Comment on above: Performed By: #### B MPF, ACBC #### Testing performed at [address] [address] Calcium [Mass/Vol] 8.4 mg/dL Normal 8.4-10.2 [facility] Comment on above: Performed By: #### B MPF, ACBC #### Testing performed at [address] [address] Chloride [Moles/Vol] 106 mmol/L Normal 98-107 [facility] Comment on above: Result Comment: Plea note: Triglyceride levels of 600mg/dL or higher may positively bias chloride results by approximately 2.1 mmol Performed By: #### B MPF, ACBC #### Testing performed at [address] [address] CO2 [Moles/Vol] 23 mmol/L Normal 22-30 [facility] Comment on above: Performed By: #### B MPF, ACBC #### Testing performed at [address] [address] Creatinine [Mass/Vol] 0.50 mg/dL Low 0.70-1.20 [facility] Comment on above: Performed By: #### B MPF, ACBC #### Testing performed at [address] [address] EST. GFR, 157 ml/min/1.73sq.m Normal [facility] Comment on above: Performed By: #### B MPF, ACBC #### Testing performed at [address] [address] EST. GFR,Non 130 ml/min/1.73sq.m Normal [facility] Comment on above: Performed By: #### B HERMELINDO RONQUILLO #### Testing performed at [address] [address] GFR Information Average GFR for 70+ years old = 75. 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 Kidney failure, GFR = <15. The GFR estimate is not adjusted for extreme body surface area or acute process, nor has it been validated for women or ethnic groups other than and . Performed By: #### B HERMELINDO RONQUILLO #### Testing performed at [address] [address] Glucose [Mass/Vol] 125 mg/dL High 70-100 [facility] Comment on above: Result Comment: NORMAL <100 mg/dL PREDIABETES 101-126 mg/dL DIABETES 126 mg/dL or higher Performed By: #### B HERMELINDO RONQUILLO #### Testing performed at [address] [address] Potassium [Moles/Vol] 3.4 mmol/L Low 3.5-5.1 [facility] Comment on above: Performed By: #### B HERMELINDO RONQUILLO #### Testing performed at [address] [address] Sodium [Moles/Vol] 136 mmol/L Low 137-145 [facility] Comment on above: Performed By: #### B HERMELINDO RONQUILLO #### Testing performed at [address] [address] Urea nitrogen [Mass/Vol] 15 mg/dL Normal 7-20 [facility] Comment on above: Performed By: #### B HERMELINDO RONQUILLO #### Testing performed at [address] [address] CBCon 12-01-2023 ABSOLUTE BAS 0.0 10*3/uL Normal 0.0-0.2 [facility] Comment on above: Performed By: #### B MPF, ACBC #### Testing performed at [address] [place] [address] ABSOLUTE EOS 0.0 10*3/uL Normal 0.0-0.7 [facility] Comment on above: Performed By: #### B MPF, ACBC #### Testing performed at [address] [place] [address] ABSOLUTE NEUTROPHIL COUNT 4.1 10*3/uL Normal 1.4-6.5 [facility] Comment on above: Performed By: #### B MPF, ACBC #### Testing performed at [address] [address] Basophils/100 WBC (Bld) 0.1 % Normal 0.0-2.0 [facility] Comment on above: Performed By: #### B MPF, ACBC #### Testing performed at [address] [address] DTYPE AUTO DIFF Normal [facility] Comment on above: Performed By: #### B MPF, ACBC #### Testing performed at [address] [address] Eosinophils/100 WBC (Bld) 0.0 % Normal 0.0-11.0 [facility] Comment on above: Performed By: #### B MPF, ACBC #### Testing performed at [address] [place] [address] Erythrocyte distribution width (RBC) [Ratio] 14.3 % Normal 11.5-14.5 [facility] Comment on above: Performed By: #### B MPF, ACBC #### Testing performed at [address] [place] [address] Hematocrit (Bld) [Volume fraction] 30.1 % Low 36.0-48.0 [facility] Comment on above: Performed By: #### B MPF, ACBC #### Testing performed at [address] [address] Hemoglobin (Bld) [Mass/Vol] 10.3 g/dL Low 12.0-16.0 [facility] Comment on above: Performed By: #### B MPF, ACBC #### Testing performed at [address] [place] [address] Lymphocytes (Bld) [#/Vol] 0.4 10*3/uL Low 1.2-3.4 [facility] Comment on above: Performed By: #### B MPF, ACBC #### Testing performed at [address] [place] [address] Lymphocytes/100 WBC (Bld) 8.1 % Low 20.0-55.0 [facility] Comment on above: Performed By: #### B MPF, ACBC #### Testing performed at [address] [place] [address] MCH (RBC) [Entitic mass] 34.6 pg Normal 26.0-35.0 [facility] Comment on above: Performed By: #### B MPF, ACBC #### Testing performed at [address] [place] [address] MCHC (RBC) [Mass/Vol] 34.2 g/dL Normal 27.0-37.0 [facility] Comment on above: Performed By: #### B MPF, ACBC #### Testing performed at [address] [place] [address] MCV (RBC) [Entitic vol] 101.3 fL High 80.0-100.0 [facility] Comment on above: Performed By: #### B MPF, ACBC #### Testing performed at [address] [address] Monocytes (Bld) [#/Vol] 0.4 10*3/uL Normal 0.0-0.7 [facility] Comment on above: Performed By: #### B MPF, ACBC #### Testing performed at [address] [place] [address] Monocytes/100 WBC (Bld) 8.1 % Normal 0.0-10.0 [facility] Comment on above: Performed By: #### B MPF, ACBC #### Testing performed at [address] [place] [address] Neutrophils/100 WBC (Bld) 83.7 % High 37.0-75.0 [facility] Comment on above: Performed By: #### B MPF, ACBC #### Testing performed at [address] [address] Platelet mean volume (Bld) [Entitic vol] 7.3 fL Low 7.4-11.0 [facility] Comment on above: Performed By: #### B MPF, ACBC #### Testing performed at [address] [address] Platelets (Bld) [#/Vol] 181 10*3/uL Normal 130-400 [facility] Comment on above: Performed By: #### B MPF, ACBC #### Testing performed at [address] [address] RBC (Bld) [#/Vol] 2.97 10*6/uL Low 4.0-5.4 [facility] Comment on above: Performed By: #### B MPF, ACBC #### Testing performed at [address] [address] WBC (Bld) [#/Vol] 4.9 10*3/uL Normal 3.6-11.0 [facility] Comment on above: Performed By: #### B MPF, ACBC #### Testing performed at [address] [address] BMP FASTINGon 11-30-2023 Anion gap [Moles/Vol] 3 mmol/L Normal [facility] Comment on above: Performed By: #### A CBC, CMPF, PT #### Testing performed at [address] [address] Calcium [Mass/Vol] 7.7 mg/dL Low 8.4-10.2 [facility] Comment on above: Performed By: #### A CBC, CMPF, PT #### Testing performed at [address] [address] Chloride [Moles/Vol] 106 mmol/L Normal 98-107 [facility] Comment on above: Result Comment: Sriram arriaga note: Triglyceride levels of 600mg/dL or higher may positively bias chloride results by approximately 2.1 mmol Performed By: #### A CBC, CMPF, PT #### Testing performed at [address] [place] [address] CO2 [Moles/Vol] 24 mmol/L Normal 22-30 [facility] Comment on above: Performed By: #### A CBC, CMPF, PT #### Testing performed at [address] [address] Creatinine [Mass/Vol] 0.60 mg/dL Low 0.70-1.20 [facility] Comment on above: Performed By: #### A CBC, CMPF, PT #### Testing performed at [address] [address] EST. GFR, 127 ml/min/1.73sq.m [facility] Comment on above: Performed By: #### A CBC, CMPF, PT #### Testing performed at [address] [address] EST. GFR,Non 105 ml/min/1.73sq.m [facility] Comment on above: Performed By: #### A CBC, CMPF, PT #### Testing performed at [address] [address] GFR Information Average GFR for 70+ years old = 75. 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 Kidney failure, GFR = <15. The GFR estimate is not adjusted for extreme body surface area or acute process, nor has it been validated for women or ethnic groups other than and . Performed By: #### A CBC, CMPF, PT #### Testing performed at [address] [address] Glucose [Mass/Vol] 111 mg/dL High 70-100 [facility] Comment on above: Result Comment: NORMAL <100 mg/dL PREDIABETES 101-126 mg/dL DIABETES 126 mg/dL or higher Performed By: #### A CBC, CMPF, PT #### Testing performed at [address] [address] Potassium [Moles/Vol] 3.6 mmol/L Normal 3.5-5.1 [facility] Comment on above: Performed By: #### A CBC, CMPF, PT #### Testing performed at [address] [address] Sodium [Moles/Vol] 133 mmol/L Low 137-145 [facility] Comment on above: Performed By: #### A CBC, CMPF, PT #### Testing performed at [address] [address] Urea nitrogen [Mass/Vol] 12 mg/dL Normal 7-20 [facility] Comment on above: Performed By: #### A CBC, CMPF, PT #### Testing performed at [address] [address] CBCon 11-30-2023 ABSOLUTE BAS 0.0 10*3/uL Normal 0.0-0.2 [facility] Comment on above: Performed By: #### A CBC, CMPF, PT #### Testing performed at [address] [address] ABSOLUTE EOS 0.0 10*3/uL Normal 0.0-0.7 [facility] Comment on above: Performed By: #### A CBC, CMPF, PT #### Testing performed at [address] [address] ABSOLUTE NEUTROPHIL COUNT 4.6 10*3/uL Normal 1.4-6.5 [facility] Comment on above: Performed By: #### A CBC, CMPF, PT #### Testing performed at [address] [address] Basophils/100 WBC (Bld) 0.0 % Normal 0.0-2.0 [facility] Comment on above: Performed By: #### A CBC, CMPF, PT #### Testing performed at [address] [address] DTYPE AUTO DIFF Normal [facility] Comment on above: Performed By: #### A CBC, CMPF, PT #### Testing performed at [address] [address] Eosinophils/100 WBC (Bld) 0.0 % Normal 0.0-11.0 [facility] Comment on above: Performed By: #### A CBC, CMPF, PT #### Testing performed at [facility] [place] [facility] [address] [place] [address] Lymphocytes (Bld) [#/Vol] 0.4 10*3/uL Low 1.2-3.4 [facility] Comment on above: Performed By: #### A CBC, CMPF, PT #### Testing performed at [address] [address] Lymphocytes/100 WBC (Bld) 7.5 % Low 20.0-55.0 [facility] Comment on above: Performed By: #### A CBC, CMPF, PT #### Testing performed at [address] [address] Monocytes (Bld) [#/Vol] 0.4 10*3/uL Normal 0.0-0.7 [facility] Comment on above: Performed By: #### A CBC, CMPF, PT #### Testing performed at [address] [address] Monocytes/100 WBC (Bld) 7.3 % Normal 0.0-10.0 [facility] Comment on above: Performed By: #### A CBC, CMPF, PT #### Testing performed at [address] [address] Neutrophils/100 WBC (Bld) 85.2 % High 37.0-75.0 [facility] Comment on above: Performed By: #### A CBC, CMPF, PT #### Testing performed at [address] [address] Erythrocyte distribution width (RBC) [Ratio] 14.2 % Normal 11.5-14.5 [facility] Comment on above: Performed By: #### A CBC, CMPF, PT #### Testing performed at [address] [place] [address] Hematocrit (Bld) [Volume fraction] 30.2 % Low 36.0-48.0 [facility] Comment on above: Performed By: #### A CBC, CMPF, PT #### Testing performed at [address] [address] Hemoglobin (Bld) [Mass/Vol] 10.2 g/dL Low 12.0-16.0 [facility] Comment on above: Performed By: #### A CBC, CMPF, PT #### Testing performed at [address] [address] MCH (RBC) [Entitic mass] 34.1 pg Normal 26.0-35.0 [facility] Comment on above: Performed By: #### A CBC, CMPF, PT #### Testing performed at [address] [address] MCHC (RBC) [Mass/Vol] 33.7 g/dL Normal 27.0-37.0 [facility] Comment on above: Performed By: #### A CBC, CMPF, PT #### Testing performed at [address] [address] MCV (RBC) [Entitic vol] 101.3 fL High 80.0-100.0 [facility] Comment on above: Performed By: #### A CBC, CMPF, PT #### Testing performed at [address] [address] Platelet mean volume (Bld) [Entitic vol] 7.3 fL Low 7.4-11.0 [facility] Comment on above: Performed By: #### A CBC, CMPF, PT #### Testing performed at [address] [address] Platelets (Bld) [#/Vol] 180 10*3/uL Normal 130-400 [facility] Comment on above: Performed By: #### A CBC, CMPF, PT #### Testing performed at [address] [address] RBC (Bld) [#/Vol] 2.99 10*6/uL Low 4.0-5.4 [facility] Comment on above: Performed By: #### A CBC, CMPF, PT #### Testing performed at [address] [address] WBC (Bld) [#/Vol] 5.4 10*3/uL Normal 3.6-11.0 [facility] Comment on above: Performed By: #### A CBC, CMPF, PT #### Testing performed at [address] [address] ANAEROBIC CULTUREon 11-29-19 ANAEROBIC CULTURE SPECIMEN DESCRIPTION LEFT KNEE CULTURE NO GROWTH 5 DAYS * Result Note: Testing performed at [place] [address] * REPORT STATUS 12/04/2023 * Result Note: FINAL * Normal [facility] Comment on above: Performed By: #### A CBC, CMPF, PT #### Testing performed at [address] [address] TISSUE CULTUREon 11-29-2023 TISSUE CULTURE SPECIMEN DESCRIPTION LEFT KNEE GRAM SMEAR NO * Result Note: WBC'S SEEN * * Result Note: NO ORGANISMS SEEN * CULTURE NO GROWTH 5 DAYS * Result Note: Testing performed at [place] [address] * REPORT STATUS 12/04/2023 * Result Note: FINAL * Normal [facility] Comment on above: Performed By: #### A CBC, CMPF, PT #### [place] [address] TYPE AND SCREEN CROSSMATCH C ONVERTIBLEon 11-29-2023 TYPE AND SCREEN CROSSMATCH CONVERTIBLE UNITS ORDERED 2 WORKUP EXPIRES 12/02/2023,2359 ABO/RH(D) O POSITIVE ANTIBODY SCREEN NEGATIVE ARM BAND NUMBER [id number] UNIT NUMBER [id number] BLOOD COMPONENT TYPE LEUKORED RBC UNIT DIVISION 00 STATUS OF UNIT REL FROM ALLOC TRANSFUSION STATUS OK TO TRANSFUSE CROSSMATCH RESULT Electronically Compatible UNIT NUMBER [id number] BLOOD COMPONENT TYPE LEUKORED RBC UNIT DIVISION 00 STATUS OF UNIT REL FROM ALLOC TRANSFUSION STATUS OK TO TRANSFUSE CROSSMATCH RESULT Electronically Compatible [facility] Comment on above: Performed By: #### A CBC, CMPF, PT #### Testing performed at [address] [address] WOUND CULTUREon 11-29-2023 WOUND CULTURE SPECIMEN DESCRIPTION LEFT KNEE GRAM SMEAR NO * Result Note: WBC'S SEEN * * Result Note: NO ORGANISMS SEEN * CULTURE NO GROWTH 5 DAYS * Result Note: Testing performed at [place] [id number] * REPORT STATUS 12/04/2023 * Result Note: FINAL * [facility] Comment on above: Performed By: #### A CBC, CMPF, PT #### Testing performed at [address] [address] XR KNEE LEFT 1-2 VIEWSon XR KNEE [...] other acute bony abnormality is seen. Normal [facility] CBCon 11-03-2023 ABSOLUTE BAS 0.0 10*3/uL Normal 0.0-0.2 [facility] Comment on above: Performed By: #### A CBC, CMPF, PT #### Testing performed at [address] [address] ABSOLUTE EOS 0.1 10*3/uL Normal 0.0-0.7 [facility] Comment on above: Performed By: #### A CBC, CMPF, PT #### Testing performed at [address] [address] ABSOLUTE NEUTROPHIL COUNT 2.6 10*3/uL Normal 1.4-6.5 [facility] Comment on above: Performed By: #### A CBC, CMPF, PT #### Testing performed at [address] [address] Basophils/100 WBC (Bld) 0.3 % Normal 0.0-2.0 [facility] Comment on above: Performed By: #### A CBC, CMPF, PT #### Testing performed at [address] [address] DTYPE AUTO DIFF Normal [facility] Comment on above: Performed By: #### A CBC, CMPF, PT #### Testing performed at [address] [address] Eosinophils/100 WBC (Bld) 1.8 % Normal 0.0-11.0 [facility] Comment on above: Performed By: #### A CBC, CMPF, PT #### Testing performed at [address] [address] Lymphocytes (Bld) [#/Vol] 0.4 10*3/uL Low 1.2-3.4 [facility] Comment on above: Performed By: #### A CBC, CMPF, PT #### Testing performed at [address] [address] Lymphocytes/100 WBC (Bld) 11.1 % Low 20.0-55.0 [facility] Comment on above: Performed By: #### A CBC, CMPF, PT #### Testing performed at [address] [address] Monocytes (Bld) [#/Vol] 0.4 10*3/uL Normal 0.0-0.7 [facility] Comment on above: Performed By: #### A CBC, CMPF, PT #### Testing performed at [address] [address] Monocytes/100 WBC (Bld) 11.1 % High 0.0-10.0 [facility] Comment on above: Performed By: #### A CBC, CMPF, PT #### Testing performed at [address] [address] Neutrophils/100 WBC (Bld) 75.7 % High 37.0-75.0 [facility] Comment on above: Performed By: #### A CBC, CMPF, PT #### Testing performed at [address] [address] Erythrocyte distribution width (RBC) [Ratio] 14.5 % Normal 11.5-14.5 [facility] Comment on above: Performed By: #### A CBC, CMPF, PT #### Testing performed at [address] [address] Hematocrit (Bld) [Volume fraction] 34.7 % Low 36.0-48.0 [facility] Comment on above: Performed By: #### A CBC, CMPF, PT #### Testing performed at [address] [address] Hemoglobin (Bld) [Mass/Vol] 11.3 g/dL Low 12.0-16.0 [facility] Comment on above: Performed By: #### A CBC, CMPF, PT #### Testing performed at [address] [address] MCH (RBC) [Entitic mass] 33.4 pg Normal 26.0-35.0 [facility] Comment on above: Performed By: #### A CBC, CMPF, PT #### Testing performed at [address] [address] MCHC (RBC) [Mass/Vol] 32.4 g/dL Normal 27.0-37.0 [facility] Comment on above: Performed By: #### A CBC, CMPF, PT #### Testing performed at [address] [address] MCV (RBC) [Entitic vol] 103.1 fL High 80.0-100.0 [facility] Comment on above: Performed By: #### A CBC, CMPF, PT #### Testing performed at [address] [address] Platelet mean volume (Bld) [Entitic vol] 7.2 fL Low 7.4-11.0 [facility] Comment on above: Performed By: #### A CBC, CMPF, PT #### Testing performed at [address] [address] Platelets (Bld) [#/Vol] 175 10*3/uL Normal 130-400 [facility] Comment on above: Performed By: #### A CBC, CMPF, PT #### Testing performed at [address] [address] RBC (Bld) [#/Vol] 3.37 10*6/uL Low 4.0-5.4 [facility] Comment on above: Performed By: #### A CBC, CMPF, PT #### Testing performed at [address] [address] WBC (Bld) [#/Vol] 3.5 10*3/uL Low 3.6-11.0 [facility] Comment on above: Performed By: #### A CBC, CMPF, PT #### Testing performed at [address] [address] CBC, EDIF, PLATELETon 2022 ABSOLUTE BASOPHIL COUNT 0.0 10*3/uL 0.0 - 0.2 10*3/uL [facility] Basophils/100 WBC (Bld) 0.3 % 0.0 - 2.0 % [facility] Differential cell count method Nom (Bld) AUTO DIFF % [facility] Eosinophils (Bld) [#/Vol] 0.1 10*3/uL 0.0 - 0.7 10*3/uL [facility] Eosinophils/100 WBC (Bld) 1.8 % 0.0 - 11.0 % [facility] Erythrocyte distribution width (RBC) [Ratio] 14.5 % 11.5 - 14.5 % [facility] Hematocrit (Bld) [Volume fraction] 34.7 % Low 36.0 - 48.0 % [facility] Hemoglobin (Bld) [Mass/Vol] 11.3 g/dL Low [facility] Interpretation and review of laboratory results Abnormal [facility] Lymphocytes (Bld) [#/Vol] 0.4 10*3/uL Low 1.2 - 3.4 10*3/uL [facility] Lymphocytes/100 WBC (Bld) 11.1 % Low 20.0 - 55.0 % [facility] MCH (RBC) [Entitic mass] 33.4 pg 26.0 - 35.0 PG [facility] MCHC (RBC) [Mass/Vol] 32.4 g/dL [facility] MCV (RBC) [Entitic vol] 103.1 fL High [facility] Monocytes (Bld) [#/Vol] 0.4 10*3/uL 0.0 - 0.7 10*3/uL [facility] Monocytes/100 WBC (Bld) 11.1 % High 0.0 - 10.0 % [facility] Neutrophils (Bld) [#/Vol] 2.6 10*3/uL 1.4 - 6.5 10*3/uL [facility] Neutrophils/100 WBC (Bld) 75.7 % High 37.0 - 75.0 % [facility] Platelet mean volume (Bld) [Entitic vol] 7.2 fL Low [facility] Platelets (Bld) [#/Vol] 175 10*3/uL 130 - 400 10*3/uL [facility] RBC (Bld) [#/Vol] 3.37 10*6/uL Low 4.0 - 5.4 10*6/uL [facility] WBC (Bld) [#/Vol] 3.5 10*3/uL Low 3.6 - 11.0 10*3/uL [facility] CMP FASTINGon 11-03-2023 A:G RATIO 1.7 RATIO Normal [facility] Comment on above: Performed By: #### A CBC, CMPF, PT #### Testing performed at [address] [address] ALBUMIN 3.8 G/dl Normal 3.5-5.0 [facility] Comment on above: Performed By: #### A CBC, CMPF, PT #### Testing performed at [address] [address] ALP [Catalytic activity/Vol] 61 U/L Normal 38-126 [facility] Comment on above: Performed By: #### A CBC, CMPF, PT #### Testing performed at [address] [address] ALT [Catalytic activity/Vol] 26 U/L Normal <35 [facility] Comment on above: Performed By: #### A CBC, CMPF, PT #### Testing performed at [address] [address] AST [Catalytic activity/Vol] 36 U/L Normal 14-36 [facility] Comment on above: Performed By: #### A CBC, CMPF, PT #### Testing performed at [address] [address] Bilirubin [Mass/Vol] 0.7 mg/dL Normal 0.2-1.3 [facility] Comment on above: Performed By: #### A CBC, CMPF, PT #### Testing performed at [address] [address] Calcium [Mass/Vol] 9.4 mg/dL Normal 8.4-10.2 [facility] Comment on above: Performed By: #### A CBC, CMPF, PT #### Testing performed at [address] [address] Chloride [Moles/Vol] 104 mmol/L Normal 98-107 [facility] Comment on above: Result Comment: Sriram arriaga note: Triglyceride levels of 600mg/dL or higher may positively bias chloride results by approximately 2.1 mmol Performed By: #### A CBC, CMPF, PT #### [place] [address] CO2 [Moles/Vol] 28 mmol/L Normal 22-30 [facility] Comment on above: Performed By: #### A CBC, CMPF, PT #### Testing performed at [place] [id number] Creatinine [Mass/Vol] 0.60 mg/dL Low 0.70-1.20 [facility] Comment on above: Performed By: #### A CBC, CMPF, PT #### Testing performed at [place] [id number] EST. GFR, 127 ml/min/1.73sq.m [facility] Comment on above: Performed By: #### A CBC, CMPF, PT #### Testing performed at [place] [id number] EST. GFR,Non 105 ml/min/1.73sq.m [facility] Comment on above: Performed By: #### A CBC, CMPF, PT #### [place] [address] GFR Information Average GFR for 70+ years old = 75. 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 Kidney failure, GFR = <15. The GFR estimate is not adjusted for extreme body surface area or acute process, nor has it been validated for women or ethnic groups other than and . Performed By: #### A CBC, CMPF, PT #### Testing performed at [place] [id number] Glucose [Mass/Vol] 91 mg/dL Normal 70-100 [facility] Comment on above: Result Comment: NORMAL <100 mg/dL PREDIABETES 101-126 mg/dL DIABETES 126 mg/dL or higher Performed By: #### A CBC, CMPF, PT #### Testing performed at [address] [address] Potassium [Moles/Vol] 3.9 mmol/L Normal 3.5-5.1 [facility] Comment on above: Performed By: #### A CBC, CMPF, PT #### Testing performed at [address] [address] Protein [Mass/Vol] 6.1 g/dL Low 6.3-8.2 [facility] Comment on above: Performed By: #### A CBC, CMPF, PT #### Testing performed at [address] [address] Sodium [Moles/Vol] 135 mmol/L Low 137-145 [facility] Comment on above: Performed By: #### A CBC, CMPF, PT #### Testing performed at [address] [address] Urea nitrogen [Mass/Vol] 12 mg/dL Normal 7-20 [facility] Comment on above: Performed By: #### A CBC, CMPF, PT #### Testing performed at [address] [address] COMPREHENSIVE METABOLIC PANE Adolph 11-03-2023 Albumin [Mass/Vol] 3.8 G/dl 3.5 - 5.0 G/dl [facility] Albumin/Globulin [Mass ratio] 1.7 {ratio} RATIO [facility] ALP [Catalytic activity/Vol] 61 U/L [facility] ALT [Catalytic activity/Vol] 26 U/L NINF [facility] AST [Catalytic activity/Vol] 36 U/L [facility] Bilirubin [Mass/Vol] 0.7 mg/dL [facility] Calcium [Mass/Vol] 9.4 mg/dL [facility] Chloride [Moles/Vol] 104 mmol/L [facility] Comment on above: Please note: Triglyc eride levels of 600mg/dL or higher may positively bias chloride results by approximately 2.1 mmol CO2 [Moles/Vol] 28 mmol/L [facility] Creatinine [Mass/Vol] 0.60 mg/dL Low [facility] GFR COMMENT Average GFR for 70+ years old = 75. [facility] Comment on above: Chronic Kidney disea se, GFR = <60. Kidney failure, GFR = <15. The GFR estimate is not adjusted for extreme body surface area or acute process, nor has it been validated for women or ethnic groups other than and . GFR/1.73 sq M.predicted among blacks MDRD (S/P/Bld) [Vol rate/Area] 127 mL/min/{1.73_m2} ml/min/1.73sq .m [facility] GFR/1.73 sq M.predicted among non-blacks MDRD (S/P/Bld) [Vol rate/Area] 105 mL/min/{1.73_m2} ml/min/1.73sq .m [facility] Glucose post fast [Mass/Vol] 91 mg/dL [facility] Comment on above: NORMAL <100 mg/dL PREDIABETES 101-126 mg/dL DIABETES 126 mg/dL or higher Interpretation and review of laboratory results Abnormal [facility] Potassium [Moles/Vol] 3.9 mmol/L [facility] Protein [Mass/Vol] 6.1 g/dL Low [facility] Sodium [Moles/Vol] 135 mmol/L Low [facility] Urea nitrogen [Mass/Vol] 12 mg/dL [facility] ECGOrdered By: Delgado da silva on 11-03-2023 [facility] Work Phone: HEMOGLOBIN A1Con 11-03-2023 Glucose [Mass/Vol] 100 mg/dL [facility] HbA1c (Bld) [Mass fraction] 5.1 % 0 - 6 % [facility] Comment on above: NORMAL <5.7% PREDIABETES 5.7-6.4% DIABETES 6.5% OR HIGHER [facility] Glucose [Mass/Vol] 100 mg/dL Normal [facility] Comment on above: Performed By: #### A CBC, CMPF, PT #### Testing performed at [address] [address] HbA1c (Bld) [Mass fraction] 5.1 % Normal 0-6 [facility] Comment on above: Result Comment: NORMAL <5.7% PREDIABETES 5.7-6.4% DIABETES 6.5% OR HIGHER Performed By: #### A CBC, CMPF, PT #### Testing performed at [address] [address] MRSA SCREENon 11-03-2023 MRSA DNA NOHELIA+probe Ql (Unsp spec) Negative Normal NEGATIVE [facility] Comment on above: Performed By: #### M RSAST #### Testing performed at [address] [address] STAPH AUREUS SCREEN Negative Normal NEGATIVE [facility] Comment on above: Result Comment: TEST ING PERFORMED BY PCR Performed By: #### M RSAST #### Testing performed at [address] [address] PROTIMEon 11-03-2023 INR Coag (PPP) [Relative time] 0.94 {INR} Normal 0.85-1.10 [facility] Comment on above: Result Comment: 2.0-3.0 THERAPEUTIC RANGE 2.5-3.5 MECHANICAL VALVE RANGE Performed By: #### A CBC, CMPF, PT #### Testing performed at [address] [address] PT Coag (PPP) [Time] 12.7 s Normal 11.8-14.4 [facility] Comment on above: Performed By: #### A CBC, CMPF, PT #### Testing performed at [address] [address] PROTIME-INRon 11-03-2023 INR Coag (PPP) [Relative time] 0.94 {INR} 0.85 - 1.10 [facility] Comment on above: 2.0-3.0 THERAPEUTIC RANGE 2.5-3.5 MECHANICAL VALVE RANGE PT Coag (PPP) [Time] 12.7 s [facility] SCREEN: MRSA ONLY, NARES (IS OLATION SCREEN)on 11-03-2023 MRSA isol Org specific cx Ql (Nose) Negative NEGATIVE [facility] Page Mage [facility] STAPHYOCOCCUS AUREUS BY PCR Negative NEGATIVE [facility] Comment on above: TESTING PERFORMED BY PCR [facility] URINALYSIS, MACROon 11-03-20 23 Bilirubin Ql (U) Negative NEGATIVE [facility] Clarity (U) CLEAR CLEAR [employer] [facility] Color (U) YELLOW YELLOW [employer] Glucose Test strip (U) [Mass/Vol] Negative NEGATIVE mg/dl [facility] Hemoglobin Ql (U) Negative NEGATIVE [facility] Ketones (U) [Mass/Vol] Negative NEGATIVE mg/dl [facility] Leukocyte esterase Test strip Ql (U) Negative NEGATIVE [facility] Nitrite Ql (U) Negative NEGATIVE [facility] pH (U) 7.0 [pH] 5.0 - 7.0 [facility] Protein Ql (U) Negative NEGATIVE mg/dl [facility] Specific gravity (U) [Rel density] 1.015 1.010 - 1.025 [facility] Urobilinogen (U) [Mass/Vol] 0.2 mg/dL [facility] URINE MACROSCOPICon 11-03-20 Bilirubin Ql (U) Negative Normal NEGATIVE [facility] Comment on above: Performed By: #### U MAC #### Testing performed at [address] [address] Clarity (U) CLEAR Normal CLEAR [facility] Comment on above: Performed By: #### U MAC #### Testing performed at [address] [address] Color (U) YELLOW Normal YELLOW [facility] Comment on above: Performed By: #### U MAC #### Testing performed at [address] [address] Glucose Ql (U) Negative Normal NEGATIVE [facility] Comment on above: Performed By: #### U MAC #### Testing performed at [address] [address] pH (U) 7.0 [pH] Normal 5.0-7.0 [facility] Comment on above: Performed By: #### U MAC #### Testing performed at [address] [address] URINE HEMOGLOBIN Negative Normal NEGATIVE [facility] Comment on above: Performed By: #### U MAC #### Testing performed at [address] [address] URINE KETONE Negative Normal NEGATIVE [facility] Comment on above: Performed By: #### U MAC #### Testing performed at [address] [address] URINE LEUKOTEST Negative Normal NEGATIVE [facility] Comment on above: Performed By: #### U MAC #### Testing performed at [address] [address] URINE NITRATES Negative Normal NEGATIVE [facility] Comment on above: Performed By: #### U MAC #### Testing performed at [address] [address] URINE SPEC GRAVITY 1.015 Normal 1.010-1.025 [facility] Comment on above: Performed By: #### U MAC #### Testing performed at [address] [address] URINE TOTAL PROTEIN Negative Normal NEGATIVE [facility] Comment on above: Performed By: #### U MAC #### Testing performed at [address] [address] Urobilinogen Qn (U) 0.2 {Flaquita'U}/dL Normal 0.2-1.0 [facility] Comment on above: Performed By: #### U MAC #### Testing performed at [address] [address] C3 and C4 COMPLEMENTon 02-09 Complement C3, Serum 140 mg/dL Normal 82-167 [facility] Comment on above: Performed By: #### L IVER, LIPID, TSH, FT3, T4 #### [facility] [address] [place] [id number] Frank Hills Complement C4, Serum 36 mg/dL Normal 12-38 [facility] Comment on above: Performed By: #### L IVER, LIPID, TSH, FT3, T4 #### [facility] [address] [place], [place] [address] Dr. Frank Hills COMPLEMENT TOTAL (CH50)on Complement, Total (CH50) >60 Normal >41 [facility] Comment on above: Result Comment: Age [...] values. Performed By: #### C H50T #### [facility] [address] [place] [address] Dr. Frank Hills CBC AUTO DIFFon 02-08-2023 BASO # 0.0 103/ul Normal 0.0-0.1 [facility] Comment on above: Performed By: #### C BC #### [facility] [address] [place] [address] Dr. Frank Hills Basophils/100 WBC (Bld) 0.3 % Normal 0.2-2.0 [facility] Comment on above: Performed By: #### C BC #### [facility] [address] [place] [address] Dr. Frank Hills EO # 0.1 103/ul Normal 0.0-0.7 [facility] Comment on above: Performed By: #### C BC #### [facility] [address] [place] [address] Dr. Frank Hills Eosinophils/100 WBC (Bld) 1.6 % Normal 0.9-7.0 [facility] Comment on above: Performed By: #### C BC #### [facility] [address] [place] [address] Dr. Frank Hills Erythrocyte distribution width (RBC) [Ratio] 13.6 % Normal 11.0-15.0 [facility] Comment on above: Performed By: #### C BC #### [facility] [address] [place] [address] Dr. Frank Hills Hematocrit (Bld) [Volume fraction] 36.4 % Normal 36.0-48.0 [facility] Comment on above: Performed By: #### C BC #### [facility] [address] [place] [address] Dr. Frank Hills Hemoglobin (Bld) [Mass/Vol] 11.8 g/dL Critically low 12.0-16.0 [facility] Comment on above: Performed By: #### C BC #### [facility] [address] [place] [address] Dr. Frank Hills IG # 0.01 10e3/ul Normal 0.00-0.03 [facility] Comment on above: Performed By: #### C BC #### [facility] [address] [place] [address] Dr. Frank Hills IG % 0.3 % Normal 0.0-0.5 [facility] Comment on above: Performed By: #### C BC #### [facility] [address] [place] [address] Dr. Frank Hills LYMPH # 0.6 103/ul Critically low 1.2-3.8 [facility] Comment on above: Performed By: #### C BC #### [facility] [address] [place] [address] Dr. Frank Hills Lymphocytes/100 WBC (Bld) 15.3 % Critically low 20.5-60.0 [facility] Comment on above: Performed By: #### C BC #### [facility] [address] [place] [address] Dr. Frank Hills MANUAL DIFF REQ NO Normal [facility] Comment on above: Performed By: #### C BC #### [facility] [address] [place] [address] Dr. Frank Hills MCH (RBC) [Entitic mass] 33.2 pg Normal 26.7-34.0 [facility] Comment on above: Performed By: #### C BC #### [facility] [address] [place] [address] Dr. Frank Hills MCHC (RBC) [Mass/Vol] 32.4 g/dL Normal 29.9-35.2 [facility] Comment on above: Performed By: #### C BC #### [facility] [address] [place] [address] Dr. Frank Hills MCV (RBC) [Entitic vol] 102.5 fL Critically high 81.0-99.0 [facility] Comment on above: Performed By: #### C BC #### [facility] [address] [place] [address] Dr. Frank Hills MONO # 0.5 103/ul Normal 0.3-0.8 [facility] Comment on above: Performed By: #### C BC #### [facility] [address] [place] [address] [address] Frank Hills Monocytes/100 WBC (Bld) 12.5 % Critically high 1.7-12.0 [facility] Comment on above: Performed By: #### C BC #### [facility] [address] [place] [address] [address] Frank Hills NEUT # 2.6 103/ul Normal 1.4-6.5 [facility] Comment on above: Performed By: #### C BC #### [facility] [address] [place] [address] [address] Frank Hills Neutrophils/100 WBC (Bld) 70.0 % Normal 43.0-75.0 [facility] Comment on above: Performed By: #### C BC #### [facility] [address] [place] [address] Dr. Frank Hills Platelet mean volume (Bld) [Entitic vol] 9.0 fL Critically low 9.5-13.5 [facility] Comment on above: Performed By: #### C BC #### [facility] [address] [place] [address] Dr. Frank Hills PLT 192 103/ul Normal 150-450 [facility] Comment on above: Performed By: #### C BC #### [facility] [address] [place] [address] Dr. Frank Hills RBC 3.55 106/ul Critically low 4.20-5.40 [facility] Comment on above: Performed By: #### C BC #### [facility] [address] [place] [address] Dr. Frank Hills WBC 3.7 103/ul Critically low 4.0-11.0 [facility] Comment on above: Performed By: #### C BC #### [facility] [address] [place] [address] Dr. Frank Hills PROF 14(COMP METB)on 023 Albumin [Mass/Vol] 3.7 g/dL Normal 3.4-5.0 [facility] Comment on above: Performed By: #### L IVER, LIPID, TSH, FT3, T4 #### [facility] [address] [place] [address] Dr. Frank Hills Albumin/Globulin [Mass ratio] 1.2 {ratio} [facility] Comment on above: Performed By: #### L IVER, LIPID, TSH, FT3, T4 #### [facility] [address] [place] [address] Dr. Frank Hills ALP [Catalytic activity/Vol] 66 U/L Normal 46-116 [facility] Comment on above: Performed By: #### L IVER, LIPID, TSH, FT3, T4 #### [facility] [address] [place] [address] Dr. Frank Hills ALT [Catalytic activity/Vol] 29 U/L Normal 14-59 [facility] Comment on above: Performed By: #### L IVER, LIPID, TSH, FT3, T4 #### [facility] [address] [place] [address] Dr. Frank Hills Anion gap [Moles/Vol] 11.6 mmol/L [facility] Comment on above: Performed By: #### L IVER, LIPID, TSH, FT3, T4 #### [facility] [address] [place] [address] Dr. Frank Hills AST [Catalytic activity/Vol] 27 U/L Normal 15-37 [facility] Comment on above: Performed By: #### L IVER, LIPID, TSH, FT3, T4 #### [facility] [address] [place] [address] Dr. Frank Hills Bilirubin [Mass/Vol] 0.7 mg/dL Normal 0.2-1.0 [facility] Comment on above: Performed By: #### L IVER, LIPID, TSH, FT3, T4 #### [facility] [address] [place] [address] Dr. Frank Hills Calcium [Mass/Vol] 9.1 mg/dL Normal 8.5-10.1 [facility] Comment on above: Performed By: #### L IVER, LIPID, TSH, FT3, T4 #### [facility] [address] [address] [address] Frank Hills Chloride [Moles/Vol] 105 mmol/L Normal 98-107 [facility] Comment on above: Performed By: #### L IVER, LIPID, TSH, FT3, T4 #### [facility] [address] [place] [address] Dr. Frank Hills CO2 [Moles/Vol] 29.5 mmol/L Normal 21.0-32.0 [facility] Comment on above: Performed By: #### L IVER, LIPID, TSH, FT3, T4 #### [facility] [address] [place] [address] Dr. Frank Hills Creatinine [Mass/Vol] 0.57 mg/dL Normal 0.55-1.02 [facility] Comment on above: Performed By: #### L IVER, LIPID, TSH, FT3, T4 #### [facility] [address] [place] [address] Dr. Frank Hills EGFR-AF SYRIAN >60 Normal >=60 [facility] Comment on above: Performed By: #### L IVER, LIPID, TSH, FT3, T4 #### [facility] [address] [place] [address] Dr. Frank Hills EGFR-NON AF SYRIAN >60 Normal >=60 [facility] Comment on above: Performed By: #### L IVER, LIPID, TSH, FT3, T4 #### [facility] [address] [place] [address] Dr. Frank Hills Globulin (S) [Mass/Vol] 3.1 g/dL [facility] Comment on above: Performed By: #### L IVER, LIPID, TSH, FT3, T4 #### [facility] [address] [place] [address] Dr. Frank Hills Glucose [Mass/Vol] 95 mg/dL Normal 74-106 [facility] Comment on above: Performed By: #### L IVER, LIPID, TSH, FT3, T4 #### [facility] [address] [place] [address] Dr. Frank Hills Potassium [Moles/Vol] 5.1 mmol/L Normal 3.5-5.1 [facility] Comment on above: Performed By: #### L IVER, LIPID, TSH, FT3, T4 #### [facility] [address] [place] [address] Dr. Frank Hills Protein [Mass/Vol] 6.8 g/dL Normal 6.4-8.2 [facility] Comment on above: Performed By: #### L IVER, LIPID, TSH, FT3, T4 #### [facility] [address] [place] [address] Dr. Frank Hills Sodium [Moles/Vol] 141 mmol/L Normal 136-145 [facility] Comment on above: Performed By: #### L IVER, LIPID, TSH, FT3, T4 #### [facility] [address] [place] [address] Dr. Frank Hills Urea nitrogen [Mass/Vol] 13.0 mg/dL Normal 7.0-18.0 [facility] Comment on above: Performed By: #### L IVER, LIPID, TSH, FT3, T4 #### [facility] [address] [place] [address] Dr. Frank Hills Urea nitrogen/Creatinine [Mass ratio] 22.8 mg/mg Normal [facility] Comment on above: Performed By: #### L IVER, LIPID, TSH, FT3, T4 #### [facility] [address] [place] [address] Dr. Frank Hills SED RATE WESTERGRENon 2022 SED RATE 9 mm/hr Normal <=30 [facility] Comment on above: Performed By: #### L IVER, LIPID, TSH, FT3, T4 #### [facility] [address] [place] [address] Dr. Frank Hills UA RANDOM W/MICROSCOPICon BACTERIA NONE SEEN Normal NONE SEEN [facility] Comment on above: Performed By: #### L IVER, LIPID, TSH, FT3, T4 #### [facility] [address] [address] [address] Frank Hills Bilirubin Ql (U) Negative Normal NEGATIVE [facility] Comment on above: Performed By: #### L IVER, LIPID, TSH, FT3, T4 #### [facility] [address] [address] [address] Frank Hills CAST NONE SEEN Normal NONE SEEN [facility] Comment on above: Performed By: #### L IVER, LIPID, TSH, FT3, T4 #### [facility] [address] [address] [address] Frank Hills Clarity (U) CLEAR Normal CLEAR [facility] Comment on above: Performed By: #### L IVER, LIPID, TSH, FT3, T4 #### [facility] [address] [address] [address] Frank Hills Color (U) LT. YELLOW Normal YELLOW [facility] Comment on above: Performed By: #### L IVER, LIPID, TSH, FT3, T4 #### [facility] [address] [address] [address] Frank Hills Crystals LM Nom (Urine sed) NONE SEEN Normal NONE SEEN [facility] Comment on above: Performed By: #### L IVER, LIPID, TSH, FT3, T4 #### [facility] [address] [address] [address] Frank Hills Epithelial cells LM Ql (Urine sed) RARE Normal NONE SEEN /RARE [facility] Comment on above: Performed By: #### L IVER, LIPID, TSH, FT3, T4 #### [facility] [address] [address] [address] Frank Hills Glucose Ql (U) Negative Normal NEGATIVE [facility] Comment on above: Performed By: #### L IVER, LIPID, TSH, FT3, T4 #### [facility] [address] [address] [address] Frank Hills Hemoglobin Ql (U) Negative Normal NEGATIVE [facility] Comment on above: Performed By: #### L IVER, LIPID, TSH, FT3, T4 #### [facility] [address] [address] [address] Frank Hills Ketones Ql (U) Negative Normal NEGATIVE [facility] Comment on above: Performed By: #### L IVER, LIPID, TSH, FT3, T4 #### [facility] [address] [address] [address] Frank Hills LEUKOCYTES Negative Normal NEGATIVE [facility] Comment on above: Performed By: #### L IVER, LIPID, TSH, FT3, T4 #### [facility] [address] [address] [address] Frank Hills MUCOUS NONE SEEN Normal NONE SEEN [facility] Comment on above: Performed By: #### L IVER, LIPID, TSH, FT3, T4 #### [facility] [address] [address] [address] Frank Hills Nitrite Ql (U) Negative Normal NEGATIVE [facility] Comment on above: Performed By: #### L IVER, LIPID, TSH, FT3, T4 #### [facility] [address] [address] [address] Frank Hills pH (U) 6.5 [pH] Normal 5-9 [facility] Comment on above: Performed By: #### L IVER, LIPID, TSH, FT3, T4 #### [facility] [address] [address] [address] Frank Hills RBC NONE SEEN Abnormal 0-2 [facility] Comment on above: Performed By: #### L IVER, LIPID, TSH, FT3, T4 #### [facility] [address] [address] [address] Frank Hills SPEC GRAVITY 1.020 Normal 1.005-<=1.025 [facility] Comment on above: Performed By: #### L IVER, LIPID, TSH, FT3, T4 #### [facility] [address] [address] [address] Frank Hills UA PROTEIN Negative Normal NEGATIVE/ TRACE [facility] Comment on above: Performed By: #### L IVER, LIPID, TSH, FT3, T4 #### [facility] [address] [address] [address] Frank Hills Urobilinogen Qn (U) 0.2 {Flaquita'U}/dL Normal 0.2 - 1. 0 [facility] Comment on above: Performed By: #### L IVER, LIPID, TSH, FT3, T4 #### [facility] [address] [address] [address] Frank Hills WBC NONE SEEN Normal NONE SEEN [facility] Comment on above: Performed By: #### L IVER, LIPID, TSH, FT3, T4 #### [facility] [address] [address] [address] Frank Hills C3 and C4 COMPLEMENTon 11-04 Complement C3, Serum 132 mg/dL Normal 82-167 [facility] Comment on above: Performed By: #### L IVER, LIPID, TSH, FT3, T4 #### [facility] [address] [address] [address] Frank Hills Complement C4, Serum 33 mg/dL Normal 12-38 [facility] Comment on above: Performed By: #### L IVER, LIPID, TSH, FT3, T4 #### [facility] [address] [address] [address] Frank Hills COMPLEMENT TOTAL (CH50)on Complement, Total (CH50) >60 Normal >41 [facility] Comment on above: Result Comment: Age [...] L IVER, LIPID, TSH, FT3, T4 #### [facility] [address] [address] [address] Frank Hills CBC AUTO DIFFon 11-03-2022 BASO # 0.0 103/ul Normal 0.0-0.1 [facility] Comment on above: Performed By: #### L IVER, LIPID, TSH, FT3, T4 #### [facility] [address] [place] [address] Dr. Frank Hills Basophils/100 WBC (Bld) 1.0 % Normal 0.2-2.0 [facility] Comment on above: Performed By: #### L IVER, LIPID, TSH, FT3, T4 #### [facility] [address] [place] [address] Dr. Frank Hills EO # 0.1 103/ul Normal 0.0-0.7 [facility] Comment on above: Performed By: #### L IVER, LIPID, TSH, FT3, T4 #### [facility] [address] [place] [address] Dr. Frank Hills Eosinophils/100 WBC (Bld) 1.8 % Normal 0.9-7.0 [facility] Comment on above: Performed By: #### L IVER, LIPID, TSH, FT3, T4 #### [facility] [address] [place] [address] Dr. Frank Hills Erythrocyte distribution width (RBC) [Ratio] 13.8 % Normal 11.0-15.0 [facility] Comment on above: Performed By: #### L IVER, LIPID, TSH, FT3, T4 #### [facility] [address] [place] [address] Dr. Frank Hills Hematocrit (Bld) [Volume fraction] 36.3 % Normal 36.0-48.0 [facility] Comment on above: Performed By: #### L IVER, LIPID, TSH, FT3, T4 #### [facility] [address] [place] [address] Dr. Frank Hills Hemoglobin (Bld) [Mass/Vol] 11.9 g/dL Critically low 12.0-16.0 [facility] Comment on above: Performed By: #### L IVER, LIPID, TSH, FT3, T4 #### [facility] [address] [place] [address] Dr. Frank Hills IG # 0.02 10e3/ul Normal 0.00-0.03 [facility] Comment on above: Performed By: #### L IVER, LIPID, TSH, FT3, T4 #### [facility] [address] [place] [address] Dr. Frank Hills IG % 0.5 % Normal 0.0-0.5 [facility] Comment on above: Performed By: #### L IVER, LIPID, TSH, FT3, T4 #### [facility] [address] [place] [address] Dr. Frank Hills LYMPH # 0.7 103/ul Critically low 1.2-3.8 [facility] Comment on above: Performed By: #### L IVER, LIPID, TSH, FT3, T4 #### [facility] [address] [place] [address] Dr. Frank Hills Lymphocytes/100 WBC (Bld) 18.0 % Critically low 20.5-60.0 [facility] Comment on above: Performed By: #### L IVER, LIPID, TSH, FT3, T4 #### [facility] [address] [place] [address] Dr. Frank Hills MANUAL DIFF REQ NO Normal [facility] Comment on above: Performed By: #### L IVER, LIPID, TSH, FT3, T4 #### [facility] [address] [place] [address] Dr. Frank Hills MCH (RBC) [Entitic mass] 34.2 pg Critically high 26.7-34.0 [facility] Comment on above: Performed By: #### L IVER, LIPID, TSH, FT3, T4 #### [facility] [address] [place] [address] Dr. Frank Hills MCHC (RBC) [Mass/Vol] 32.8 g/dL Normal 29.9-35.2 [facility] Comment on above: Performed By: #### L IVER, LIPID, TSH, FT3, T4 #### [facility] [address] [place] [address] Dr. Frank Hills MCV (RBC) [Entitic vol] 104.3 fL Critically high 81.0-99.0 [facility] Comment on above: Performed By: #### L IVER, LIPID, TSH, FT3, T4 #### [facility] [address] [place] [address] Dr. Frank Hills MONO # 0.4 103/ul Normal 0.3-0.8 [facility] Comment on above: Performed By: #### L IVER, LIPID, TSH, FT3, T4 #### [facility] [address] [address] [address] Frank Hills Monocytes/100 WBC (Bld) 10.0 % Normal 1.7-12.0 [facility] Comment on above: Performed By: #### L IVER, LIPID, TSH, FT3, T4 #### [facility] [address] [place] [address] Dr. Frank Hills NEUT # 2.7 103/ul Normal 1.4-6.5 [facility] Comment on above: Performed By: #### L IVER, LIPID, TSH, FT3, T4 #### [facility] [address] [place] [address] Dr. Frank Hills Neutrophils/100 WBC (Bld) 68.7 % Normal 43.0-75.0 [facility] Comment on above: Performed By: #### L IVER, LIPID, TSH, FT3, T4 #### [facility] [address] [place] [address] Dr. Frank Hills Platelet mean volume (Bld) [Entitic vol] 9.4 fL Critically low 9.5-13.5 [facility] Comment on above: Performed By: #### L IVER, LIPID, TSH, FT3, T4 #### [facility] [address] [address] [address] Frank Hills PLT 187 103/ul Normal 150-450 [facility] Comment on above: Performed By: #### L IVER, LIPID, TSH, FT3, T4 #### [facility] [address] [place] [address] Dr. Frank Hills RBC 3.48 106/ul Critically low 4.20-5.40 [facility] Comment on above: Performed By: #### L IVER, LIPID, TSH, FT3, T4 #### [facility] [address] [address] [address] Frank Hills WBC 3.9 103/ul Critically low 4.0-11.0 [facility] Comment on above: Performed By: #### L IVER, LIPID, TSH, FT3, T4 #### [facility] [address] [address] [address] Frank Hills PROF 14(COMP METB)on 022 Albumin [Mass/Vol] 3.9 g/dL Normal 3.4-5.0 [facility] Comment on above: Performed By: #### L IVER, LIPID, TSH, FT3, T4 #### [facility] [address] [place] [address] Dr. Frank Hills Albumin/Globulin [Mass ratio] 1.3 {ratio} [facility] Comment on above: Performed By: #### L IVER, LIPID, TSH, FT3, T4 #### [facility] [address] [address] [address] Frank Hills ALP [Catalytic activity/Vol] 63 U/L Normal 46-116 [facility] Comment on above: Performed By: #### L IVER, LIPID, TSH, FT3, T4 #### [facility] [address] [address] [address] Frank Hills ALT [Catalytic activity/Vol] 27 U/L Normal 14-59 [facility] Comment on above: Performed By: #### L IVER, LIPID, TSH, FT3, T4 #### [facility] [address] [address] [address] Frank Hills Anion gap [Moles/Vol] 8.4 mmol/L [facility] Comment on above: Performed By: #### L IVER, LIPID, TSH, FT3, T4 #### [facility] [address] [address] [address] Frank Hills AST [Catalytic activity/Vol] 31 U/L Normal 15-37 [facility] Comment on above: Performed By: #### L IVER, LIPID, TSH, FT3, T4 #### [facility] [address] [address] [address] Frank Hills Bilirubin [Mass/Vol] 0.7 mg/dL Normal 0.2-1.0 [facility] Comment on above: Performed By: #### L IVER, LIPID, TSH, FT3, T4 #### [facility] [address] [address] [address] Frank Hills Calcium [Mass/Vol] 9.0 mg/dL Normal 8.5-10.1 [facility] Comment on above: Performed By: #### L IVER, LIPID, TSH, FT3, T4 #### [facility] [address] [place] [address] Dr. Frank Hills Chloride [Moles/Vol] 102 mmol/L Normal 98-107 [facility] Comment on above: Performed By: #### L IVER, LIPID, TSH, FT3, T4 #### [facility] [address] [place] [address] Dr. Frank Hills CO2 [Moles/Vol] 30.8 mmol/L Normal 21.0-32.0 [facility] Comment on above: Performed By: #### L IVER, LIPID, TSH, FT3, T4 #### [facility] [address] [place] [address] Dr. Frank Hills Creatinine [Mass/Vol] 0.62 mg/dL Normal 0.55-1.02 [facility] Comment on above: Performed By: #### L IVER, LIPID, TSH, FT3, T4 #### [facility] [address] [address] [address] Frank Hills EGFR-AF SYRIAN >60 Normal >=60 [facility] Comment on above: Performed By: #### L IVER, LIPID, TSH, FT3, T4 #### [facility] [address] [address] [address] Frank Hills EGFR-NON AF SYRIAN >60 Normal >=60 [facility] Comment on above: Performed By: #### L IVER, LIPID, TSH, FT3, T4 #### [facility] [address] [address] [address] Frank Hills Globulin (S) [Mass/Vol] 3.1 g/dL [facility] Comment on above: Performed By: #### L IVER, LIPID, TSH, FT3, T4 #### [facility] [address] [address] [address] Frank Hills Glucose [Mass/Vol] 102 mg/dL Normal 74-106 [facility] Comment on above: Performed By: #### L IVER, LIPID, TSH, FT3, T4 #### [facility] [address] [place] [address] Dr. Frank Hills Potassium [Moles/Vol] 4.2 mmol/L Normal 3.5-5.1 [facility] Comment on above: Performed By: #### L IVER, LIPID, TSH, FT3, T4 #### [facility] [address] [place] [address] Dr. Frank Hills Protein [Mass/Vol] 7.0 g/dL Normal 6.4-8.2 [facility] Comment on above: Performed By: #### L IVER, LIPID, TSH, FT3, T4 #### [facility] [address] [place] [address] Dr. Frank Hills Sodium [Moles/Vol] 137 mmol/L Normal 136-145 [facility] Comment on above: Performed By: #### L IVER, LIPID, TSH, FT3, T4 #### [facility] [address] [place] [address] Dr. Frank Hills Urea nitrogen [Mass/Vol] 15.0 mg/dL Normal 7.0-18.0 [facility] Comment on above: Performed By: #### L IVER, LIPID, TSH, FT3, T4 #### [facility] [address] [place] [address] Dr. Frank Hills Urea nitrogen/Creatinine [Mass ratio] 24.2 mg/mg Normal [facility] Comment on above: Performed By: #### L IVER, LIPID, TSH, FT3, T4 #### [facility] [address] [address] [address] Frank Hills SED RATE [facility] 2021 SED RATE 8 mm/hr Normal <=30 [facility] Comment on above: Performed By: #### L IVER, LIPID, TSH, FT3, T4 #### [facility] [address] [address] [address] Frank Hills UA RANDOM W/MICROSCOPICon BACTERIA NONE SEEN Normal NONE SEEN [facility] Comment on above: Performed By: #### L IVER, LIPID, TSH, FT3, T4 #### [facility] [address] [place] [address] Dr. Frank Hills Bilirubin Ql (U) Negative Normal NEGATIVE [facility] Comment on above: Performed By: #### L IVER, LIPID, TSH, FT3, T4 #### [facility] [address] [place] [address] Dr. Frank Hills CAST NONE SEEN Normal NONE SEEN [facility] Comment on above: Performed By: #### L IVER, LIPID, TSH, FT3, T4 #### [facility] [address] [place] [address] Dr. Frank Hills Clarity (U) CLEAR Normal CLEAR [facility] Comment on above: Performed By: #### L IVER, LIPID, TSH, FT3, T4 #### [facility] [address] [place] [address] Dr. Frank Hills Color (U) LT. YELLOW Normal YELLOW [facility] Comment on above: Performed By: #### L IVER, LIPID, TSH, FT3, T4 #### [facility] [address] [place] [address] Dr. Frank Hills Crystals LM Nom (Urine sed) NONE SEEN Normal NONE SEEN [facility] Comment on above: Performed By: #### L IVER, LIPID, TSH, FT3, T4 #### [facility] [address] [place] [address] Dr. Frank Hills Epithelial cells LM Ql (Urine sed) NONE SEEN Normal NONE SEEN /RARE [facility] Comment on above: Performed By: #### L IVER, LIPID, TSH, FT3, T4 #### [facility] [address] [address] [address] Frank Hills Glucose Ql (U) Negative Normal NEGATIVE [facility] Comment on above: Performed By: #### L IVER, LIPID, TSH, FT3, T4 #### [facility] [address] [address] [address] Frank Hills Hemoglobin Ql (U) Negative Normal NEGATIVE [facility] Comment on above: Performed By: #### L IVER, LIPID, TSH, FT3, T4 #### [facility] [address] [place] [address] Dr. Frank Hills Ketones Ql (U) Negative Normal NEGATIVE [facility] Comment on above: Performed By: #### L IVER, LIPID, TSH, FT3, T4 #### [facility] [address] [place] [address] Dr. Frank Hills LEUKOCYTES Negative Normal NEGATIVE [facility] Comment on above: Performed By: #### L IVER, LIPID, TSH, FT3, T4 #### [facility] [address] [address] [address] Frank Hills MUCOUS NONE SEEN Normal NONE SEEN [facility] Comment on above: Performed By: #### L IVER, LIPID, TSH, FT3, T4 #### [facility] [address] [address] [address] Frank Hills Nitrite Ql (U) Negative Normal NEGATIVE [facility] Comment on above: Performed By: #### L IVER, LIPID, TSH, FT3, T4 #### [facility] [address] [address] [address] Frank Hills pH (U) 6.5 [pH] Normal 5-9 [facility] Comment on above: Performed By: #### L IVER, LIPID, TSH, FT3, T4 #### [facility] [address] [address] [address] Frank Hills RBC 0-2 Normal 0-2 [facility] Comment on above: Performed By: #### L IVER, LIPID, TSH, FT3, T4 #### [facility] [address] [address] [address] Frank Hills SPEC GRAVITY 1.015 Normal 1.005-<=1.025 [facility] Comment on above: Performed By: #### L IVER, LIPID, TSH, FT3, T4 #### [facility] [address] [address] [address] Frank Hills UA PROTEIN Negative Normal NEGATIVE/ TRACE [facility] Comment on above: Performed By: #### L IVER, LIPID, TSH, FT3, T4 #### [facility] [address] [place] [address] Dr. Frank Hills Urobilinogen Qn (U) 0.2 {Flaquita'U}/dL Normal 0.2 - 1. 0 [facility] Comment on above: Performed By: #### L IVER, LIPID, TSH, FT3, T4 #### [facility] [address] [place] [address] Dr. Frank Hills WBC NONE SEEN Normal NONE SEEN [facility] Comment on above: Performed By: #### L IVER, LIPID, TSH, FT3, T4 #### [facility] [address] [place] [address] Dr. Frank Hills INSULINon 10-19-2022 Insulin 9.2 uIU/mL Normal 2.6-24.9 [facility] Comment on above: Performed By: #### L IVER, LIPID, TSH, FT3, T4 #### [facility] [address] [place] [address] Dr. Frank Hills CBC W MANUAL DIFFon 10-18-20 ANISOCYTOSIS SLIGHT Normal [facility] Comment on above: Performed By: #### L IVER, LIPID, TSH, FT3, T4 #### [facility] [address] [place] [address] Dr. Frank Hills ATYPICAL LYMPH # Normal [facility] Comment on above: Performed By: #### L IVER, LIPID, TSH, FT3, T4 #### [facility] [address] [address] [address] Frank Hills ATYPICAL LYMPH % Normal [facility] Comment on above: Performed By: #### L IVER, LIPID, TSH, FT3, T4 #### [facility] [address] [address] [address] Frank Hills BAND # Normal 0.0-0.3 [facility] Comment on above: Performed By: #### L IVER, LIPID, TSH, FT3, T4 #### [facility] [address] [place] [address] Dr. Frank Hills BAND % Normal 0-5 [facility] Comment on above: Performed By: #### L IVER, LIPID, TSH, FT3, T4 #### [facility] [address] [place] [address] Dr. Frank Hills BASOM # 0.00 103/ul Normal 0.00-0.10 [facility] Comment on above: Performed By: #### L IVER, LIPID, TSH, FT3, T4 #### [facility] [address] [place] [address] Dr. Frank Hills BASOM % 0.0 % Critically low 0.2-2.0 [facility] Comment on above: Performed By: #### L IVER, LIPID, TSH, FT3, T4 #### [facility] [address] [place] [address] Dr. Frank Hills BLAST # Normal [facility] Comment on above: Performed By: #### L IVER, LIPID, TSH, FT3, T4 #### [facility] [address] [place] [address] Dr. Frank Hills BLAST % Normal [facility] Comment on above: Performed By: #### L IVER, LIPID, TSH, FT3, T4 #### [facility] [address] [place] [address] Dr. Frank Hills CORRECTED WBC Normal 4.0-11.0 [facility] Comment on above: Performed By: #### L IVER, LIPID, TSH, FT3, T4 #### [facility] [address] [address] [address] Frank Hills EOS # 0.06 103/ul Normal 0.00-0.70 [facility] Comment on above: Performed By: #### L IVER, LIPID, TSH, FT3, T4 #### [facility] [address] [place] [address] Dr. Frank Hills EOS% 2.0 % Normal 0.9-7.0 [facility] Comment on above: Performed By: #### L IVER, LIPID, TSH, FT3, T4 #### [facility] [address] [place] [address] Dr. Frank Hills HCT 35.6 % Critically low 36.0-48.0 [facility] Comment on above: Performed By: #### L IVER, LIPID, TSH, FT3, T4 #### [facility] [address] [place] [address] Dr. Frank Hills HGB 11.4 g/dl Critically low 12.0-16.0 [facility] Comment on above: Performed By: #### L IVER, LIPID, TSH, FT3, T4 #### [facility] [address] [place] [address] Dr. Frank Hills LYMPHM # 0.48 103/ul Critically low 1.20-3.80 [facility] Comment on above: Performed By: #### L IVER, LIPID, TSH, FT3, T4 #### [facility] [address] [place] [address] Dr. Frank Hills LYMPHM% 17.0 % Critically low 20.5-60.0 [facility] Comment on above: Performed By: #### L IVER, LIPID, TSH, FT3, T4 #### [facility] [address] [place] [address] Dr. Frank Hills MCH 33.4 pg Normal 26.7-34.0 [facility] Comment on above: Performed By: #### L IVER, LIPID, TSH, FT3, T4 #### [facility] [address] [place] [address] Dr. Frank Hills MCHC 32.0 g/dl Normal 29.9-35.2 [facility] Comment on above: Performed By: #### L IVER, LIPID, TSH, FT3, T4 #### [facility] [address] [address] [address] Frank Hills MCV 104.4 fL Critically high 81.0-99.0 [facility] Comment on above: Performed By: #### L IVER, LIPID, TSH, FT3, T4 #### [facility] [address] [address] [address] Frank Hills METAMYELOCYTE # Normal [facility] Comment on above: Performed By: #### L IVER, LIPID, TSH, FT3, T4 #### [facility] [address] [address] [address] Frank Hills METAMYELOCYTE % Normal [facility] Comment on above: Performed By: #### L IVER, LIPID, TSH, FT3, T4 #### [facility] [address] [address] [address] Frank Hills MICROCYTOSIS 1+ Normal [facility] Comment on above: Performed By: #### L IVER, LIPID, TSH, FT3, T4 #### [facility] [address] [address] [address] Frank Hills MONOM# 0.28 103/ul Critically low 0.30-0.80 [facility] Comment on above: Performed By: #### L IVER, LIPID, TSH, FT3, T4 #### [facility] [address] [place] [address] Dr. Frank Hills MONOM% 10.0 % Normal 1.7-12.0 [facility] Comment on above: Performed By: #### L IVER, LIPID, TSH, FT3, T4 #### [facility] [address] [place] [address] Dr. Frank Hills MPV 8.9 fL Critically low 9.5-13.5 [facility] Comment on above: Performed By: #### L IVER, LIPID, TSH, FT3, T4 #### [facility] [address] [address] [address] Frank Hills MYELOCYTE # Normal [facility] Comment on above: Performed By: #### L IVER, LIPID, TSH, FT3, T4 #### [facility] [address] [place] [address] Dr. Frank Hills MYELOCYTE % Normal [facility] Comment on above: Performed By: #### L IVER, LIPID, TSH, FT3, T4 #### [facility] [address] [address] [address] Frank Hills NRBC Normal [facility] Comment on above: Performed By: #### L IVER, LIPID, TSH, FT3, T4 #### [facility] [address] [place] [address] Dr. Frank Hills PLT 169 103/ul Normal 150-450 [facility] Comment on above: Performed By: #### L IVER, LIPID, TSH, FT3, T4 #### [facility] [address] [place] [address] Dr. Frank Hills RBC 3.41 106/ul Critically low 4.20-5.40 [facility] Comment on above: Performed By: #### L IVER, LIPID, TSH, FT3, T4 #### [facility] [address] [place] [address] Dr. Frank Hills RDW 14.1 % Normal 11.0-15.0 [facility] Comment on above: Performed By: #### L IVER, LIPID, TSH, FT3, T4 #### [facility] [address] [place] [address] Dr. Frank Hills SEG # 1.99 103/ul Normal 1.40-6.50 [facility] Comment on above: Performed By: #### L IVER, LIPID, TSH, FT3, T4 #### [facility] [address] [place] [address] Dr. Frank Hills SEG % 71.0 % Normal 43.0-75.0 [facility] Comment on above: Performed By: #### L IVER, LIPID, TSH, FT3, T4 #### [facility] [address] [address] [address] Frank Hills WBC 2.8 103/ul Critically low 4.0-11.0 [facility] Comment on above: Performed By: #### L IVER, LIPID, TSH, FT3, T4 #### [facility] [address] [address] [address] Frank Hills FREE T3on 10-18-2022 FREE T3 2.61 pg/mlL Normal 2.18-3.98 [facility] Comment on above: Performed By: #### L IVER, LIPID, TSH, FT3, T4 #### [facility] [address] [address] [address] Frank Hills GLYCOHEMOGLOBIN A1Con 2021 ADA RECOMMENDATION SEE BELOW Normal [facility] Comment on above: Result Comment: ADA RECOMMENDED LIMIT 4.0 - 6.0 ADA THERAPEUTIC TARGET < 7.0 ACTION SUGGESTED > 7.0 Performed By: #### A 1C #### [facility] [address] [address] [address] Frank Hills Glucose [Mass/Vol] 108 mg/dL Normal [facility] Comment on above: Performed By: #### A 1C #### [facility] [address] [address] [address] Frank Hills HbA1c (Bld) [Mass fraction] 5.4 % Normal 4.5-6.2 [facility] Comment on above: Performed By: #### A 1C #### [facility] [address] [address] [address] Frank Hills IRONon 10-18-2022 Iron [Mass/Vol] 96.0 ug/dL Normal 50.0-170.0 [facility] Comment on above: Performed By: #### L IVER, LIPID, TSH, FT3, T4 #### [facility] [address] [address] [address] Frank Hills LIPID PROFILEon 10-18-2022 CHOL-HDL RATIO NORM SEE BELOW Normal [facility] Comment on above: Result Comment: 3.3 - 4.4 LOW RISK 4.4 - 7.1 AVERAGE RISK 7.1 - 11.0 MODERATE RISK >11.0 HIGH RISK Performed By: #### L IVER, LIPID, TSH, FT3, T4 #### [facility] [address] [place] [address] Dr. Frank Hills Cholesterol [Mass/Vol] 172 mg/dL Normal <=200 [facility] Comment on above: Performed By: #### L IVER, LIPID, TSH, FT3, T4 #### [facility] [address] [place] [address] Dr. Frank Hills Cholesterol in HDL [Mass/Vol] 66 mg/dL Critically high 40-60 [facility] Comment on above: Performed By: #### L IVER, LIPID, TSH, FT3, T4 #### [facility] [address] [place] [address] Dr. Frank Hills Cholesterol in LDL [Mass/Vol] 86.6 mg/dL Normal [facility] Comment on above: Performed By: #### L IVER, LIPID, TSH, FT3, T4 #### [facility] [address] [place] [address] Dr. Frank Hills Cholesterol.total/Ch olesterol in HDL [Mass ratio] 2.6 {ratio} Normal [facility] Comment on above: Performed By: #### L IVER, LIPID, TSH, FT3, T4 #### [facility] [address] [place] [address] Dr. Frank Hills HDL NORMAL > or = 60 mg/dl - LO W CARDIOVASCULAR RISK <40 mg/dl - HIGH CARDIOVASCULAR RISK Normal [facility] Comment on above: Performed By: #### L IVER, LIPID, TSH, FT3, T4 #### [facility] [address] [place] [address] Dr. Frank Hills LDL CALC NORMAL SEE BELOW Normal [facility] Comment on above: Result Comment: <100 mg/dl OPTIMAL 100 - 129 mg/dl NEAR OR ABOVE OPTIMAL 130 - 159 mg/dl BORDERLINE HIGH 160 - 189 mg/dl HIGH >190 mg/dl VERY HIGH Performed By: #### L IVER, LIPID, TSH, FT3, T4 #### [facility] [address] [address] [address] Frank Hills Triglyceride [Mass/Vol] 97 mg/dL Normal <=150 [facility] Comment on above: Performed By: #### L IVER, LIPID, TSH, FT3, T4 #### [facility] [address] [place] [address] Dr. Frank Hills VLDL CALC 19.4 mg/dL Normal [facility] Comment on above: Performed By: #### L IVER, LIPID, TSH, FT3, T4 #### [facility] [address] [place] [address] Dr. Frank Hills LIVER PROFILEon 10-18-2022 Albumin [Mass/Vol] 3.5 g/dL Normal 3.4-5.0 [facility] Comment on above: Performed By: #### L IVER, LIPID, TSH, FT3, T4 #### [facility] [address] [place] [address] Dr. Frank Hills Albumin/Globulin [Mass ratio] 1.2 {ratio} Normal [facility] Comment on above: Performed By: #### L IVER, LIPID, TSH, FT3, T4 #### [facility] [address] [place] [address] Dr. Frank Hills ALP [Catalytic activity/Vol] 55 U/L Normal 46-116 [facility] Comment on above: Performed By: #### L IVER, LIPID, TSH, FT3, T4 #### [facility] [address] [place] [address] Dr. Frank Hills ALT [Catalytic activity/Vol] 34 U/L Normal 14-59 [facility] Comment on above: Performed By: #### L IVER, LIPID, TSH, FT3, T4 #### [facility] [address] [place] [address] Dr. Frank Hills AST [Catalytic activity/Vol] 40 U/L Critically high 15-37 [facility] Comment on above: Performed By: #### L IVER, LIPID, TSH, FT3, T4 #### [facility] [address] [place] [address] Dr. Frank Hills BILI, CONJUGATED 0.2 mg/dL Normal 0.0-0.2 [facility] Comment on above: Performed By: #### L IVER, LIPID, TSH, FT3, T4 #### [facility] [address] [place] [address] Dr. Frank Hills Bilirubin [Mass/Vol] 0.8 mg/dL Normal 0.2-1.0 [facility] Comment on above: Performed By: #### L IVER, LIPID, TSH, FT3, T4 #### [facility] [address] [place] [address] Dr. Frank Hills Globulin (S) [Mass/Vol] 2.9 g/dL Normal [facility] Comment on above: Performed By: #### L IVER, LIPID, TSH, FT3, T4 #### [facility] [address] [place] [address] Dr. Frank Hills Protein [Mass/Vol] 6.4 g/dL Normal 6.4-8.2 [facility] Comment on above: Performed By: #### L IVER, LIPID, TSH, FT3, T4 #### [facility] [address] [place] [address] Dr. Frank Hills T4on 10-18-2022 T4 [Mass/Vol] 6.70 ug/dL Normal 4.80-13.90 [facility] Comment on above: Performed By: #### L IVER, LIPID, TSH, FT3, T4 #### [facility] [address] [place] [address] Dr. Frank Hills TSHon 10-18-2022 TSH 1.804 uIU/mL Normal 0.358-3.740 [facility] Comment on above: Performed By: #### L IVER, LIPID, TSH, FT3, T4 #### [facility] [address] [place] [address] Dr. Frank Hills VITAMIN D 25 OHon 10-18-2022 VIT D 25-OH 50.7 ng/mL Normal [facility] Comment on above: Performed By: #### L IVER, LIPID, TSH, FT3, T4 #### [facility] [address] [place], [place] [address] Dr. Frank Hills VIT D RANGES SEE BELOW Normal [facility] Comment on above: Result Comment: <20 ng/mL Vit D deficient 20 - <30 ng/mL Vit D insufficient 30 - 100 ng/mL Vit D sufficient >100 ng/mL Potential Toxicity Performed By: #### L IVER, LIPID, TSH, FT3, T4 #### [facility] [address] [place], [place] [address] Dr. Frank Hills MG MAMM SCREEN 3D BO CADon 08-31-2022 MG MAMM SCREEN 3D BO CAD Patient: DANYELLE HASKINS Exam Date: 08/31/2022 : 1955 Gender:F Ordering : DR JACK LANDAVERDE . Admission #: [id number] Family : DR YULISA BATRES . Order #: [id number] CLICK HERE TO VIEW EXAM RADIOLOGY REPORT [...] thyroid cancer at age 48. LOCATION: [facility] BREAST COMPOSITION: Scattered areas fibroglandular density. [...] MD on 08/31/2022 at 11:14 Normal [facility] XR DEXA BONE DENSITYon 08-27 XR [...] LISY SANDOVAL Date: 2022-08-27 18:41 Normal [facility] COMPLEMENT TOTAL (CH50)on Complement, Total (CH50) >60 Normal >41 [facility] Comment on above: Result Comment: Age [...] L IVER, LIPID, TSH, FT3, T4 #### [facility] [address] [place] [address] Dr. Frank Hills C3 and C4 COMPLEMENTon 08-01 Complement C3, Serum 146 mg/dL Normal 82-167 [facility] Comment on above: Performed By: #### L IVER, LIPID, TSH, FT3, T4 #### [facility] [address] [address] [address] Frank Hills Complement C4, Serum 38 mg/dL Normal 12-38 [facility] Comment on above: Performed By: #### L IVER, LIPID, TSH, FT3, T4 #### [facility] [address] [address] [address] Frank Hills CBC AUTO DIFFon 07-30-2022 BASO # 0.0 103/ul Normal 0.0-0.1 [facility] Comment on above: Performed By: #### C BC #### [facility] [address] [address] [address] Frank Hills Basophils/100 WBC (Bld) 0.9 % Normal 0.2-2.0 [facility] Comment on above: Performed By: #### C BC #### [facility] [address] [address] [address] Frank Hills EO # 0.1 103/ul Normal 0.0-0.7 [facility] Comment on above: Performed By: #### C BC #### [facility] [address] [address] [address] Frank Hills Eosinophils/100 WBC (Bld) 3.4 % Normal 0.9-7.0 [facility] Comment on above: Performed By: #### C BC #### [facility] [address] [place] [address] Dr. Frank Hills Erythrocyte distribution width (RBC) [Ratio] 13.8 % Normal 11.0-15.0 [facility] Comment on above: Performed By: #### C BC #### [facility] [address] [place] [address] Dr. Frank Hills Hematocrit (Bld) [Volume fraction] 36.6 % Normal 36.0-48.0 [facility] Comment on above: Performed By: #### C BC #### [facility] [address] [place] [address] Dr. Frank Hills Hemoglobin (Bld) [Mass/Vol] 11.8 g/dL Critically low 12.0-16.0 [facility] Comment on above: Performed By: #### C BC #### [facility] [address] [place] [address] Dr. Frank Hills IG # 0.01 10e3/ul Normal 0.00-0.03 [facility] Comment on above: Performed By: #### C BC #### [facility] [address] [place] [address] Dr. Frank Hills IG % 0.3 % Normal 0.0-0.5 [facility] Comment on above: Performed By: #### C BC #### [facility] [address] [place] [address] Dr. Frank Hills LYMPH # 0.6 103/ul Critically low 1.2-3.8 [facility] Comment on above: Performed By: #### C BC #### [facility] [address] [place] [address] Dr. Frank Hills Lymphocytes/100 WBC (Bld) 18.1 % Critically low 20.5-60.0 [facility] Comment on above: Performed By: #### C BC #### [facility] [address] [place] [address] Dr. Frank Hills MANUAL DIFF REQ NO Normal [facility] Comment on above: Performed By: #### C BC #### [facility] [address] [place] [address] Dr. Frank Hills MCH (RBC) [Entitic mass] 33.6 pg Normal 26.7-34.0 [facility] Comment on above: Performed By: #### C BC #### [facility] [address] [place] [address] Dr. Frank Hills MCHC (RBC) [Mass/Vol] 32.2 g/dL Normal 29.9-35.2 [facility] Comment on above: Performed By: #### C BC #### [facility] [address] [place] [address] Dr. Frank Hills MCV (RBC) [Entitic vol] 104.3 fL Critically high 81.0-99.0 [facility] Comment on above: Performed By: #### C BC #### [facility] [address] [place] [address] Dr. Frank Hills MONO # 0.4 103/ul Normal 0.3-0.8 [facility] Comment on above: Performed By: #### C BC #### [facility] [address] [place] [address] Dr. Frank Hills Monocytes/100 WBC (Bld) 11.2 % Normal 1.7-12.0 [facility] Comment on above: Performed By: #### C BC #### [facility] [address] [place] [address] Dr. Frank Hills NEUT # 2.3 103/ul Normal 1.4-6.5 [facility] Comment on above: Performed By: #### C BC #### [facility] [address] [address] [address] Frank Hills Neutrophils/100 WBC (Bld) 66.1 % Normal 43.0-75.0 [facility] Comment on above: Performed By: #### C BC #### [facility] [address] [address] [address] Frank Hills Platelet mean volume (Bld) [Entitic vol] 8.9 fL Critically low 9.5-13.5 [facility] Comment on above: Performed By: #### C BC #### [facility] [address] [address] [address] Frank Hills PLT 213 103/ul Normal 150-450 [facility] Comment on above: Performed By: #### C BC #### [facility] [address] [place] [address] Dr. Frank Hills RBC 3.51 106/ul Critically low 4.20-5.40 [facility] Comment on above: Performed By: #### C BC #### [facility] [address] [address] [address] Frank Hills WBC 3.5 103/ul Critically low 4.0-11.0 [facility] Comment on above: Performed By: #### C BC #### [facility] [address] [address] [address] Frank Hills PROF 14(COMP METB)on 022 Albumin [Mass/Vol] 3.7 g/dL Normal 3.4-5.0 [facility] Comment on above: Performed By: #### L IVER, LIPID, TSH, FT3, T4 #### [facility] [address] [address] [address] Frank Hills Albumin/Globulin [Mass ratio] 1.2 {ratio} Normal [facility] Comment on above: Performed By: #### L IVER, LIPID, TSH, FT3, T4 #### [facility] [address] [address] [address] Frank Hills ALP [Catalytic activity/Vol] 59 U/L Normal 46-116 [facility] Comment on above: Performed By: #### L IVER, LIPID, TSH, FT3, T4 #### [facility] [address] [place] [address] Dr. Frank Hills ALT [Catalytic activity/Vol] 23 U/L Normal 14-59 [facility] Comment on above: Performed By: #### L IVER, LIPID, TSH, FT3, T4 #### [facility] [address] [place] [address] Dr. Frank Hills Anion gap [Moles/Vol] 10.2 mmol/L Normal [facility] Comment on above: Performed By: #### L IVER, LIPID, TSH, FT3, T4 #### [facility] [address] [place] [address] Dr. Frank Hills AST [Catalytic activity/Vol] 24 U/L Normal 15-37 [facility] Comment on above: Performed By: #### L IVER, LIPID, TSH, FT3, T4 #### [facility] [address] [place] [address] Dr. Frank Hills Bilirubin [Mass/Vol] 0.6 mg/dL Normal 0.2-1.0 [facility] Comment on above: Performed By: #### L IVER, LIPID, TSH, FT3, T4 #### [facility] [address] [place] [address] Dr. Frank Hills Calcium [Mass/Vol] 8.9 mg/dL Normal 8.5-10.1 [facility] Comment on above: Performed By: #### L IVER, LIPID, TSH, FT3, T4 #### [facility] [address] [place] [address] Dr. Frank Hills Chloride [Moles/Vol] 105 mmol/L Normal 98-107 [facility] Comment on above: Performed By: #### L IVER, LIPID, TSH, FT3, T4 #### [facility] [address] [place] [address] Dr. Frank Hills CO2 [Moles/Vol] 30.0 mmol/L Normal 21.0-32.0 [facility] Comment on above: Performed By: #### L IVER, LIPID, TSH, FT3, T4 #### [facility] [address] [place] [address] Dr. Frank Hills Creatinine [Mass/Vol] 0.64 mg/dL Normal 0.55-1.02 [facility] Comment on above: Performed By: #### L IVER, LIPID, TSH, FT3, T4 #### [facility] [address] [place] [address] Dr. Frank Hills EGFR-AF SYRIAN >60 Normal >=60 [facility] Comment on above: Performed By: #### L IVER, LIPID, TSH, FT3, T4 #### [facility] [address] [place] [address] Dr. Frank Hills EGFR-NON AF SYRIAN >60 Normal >=60 [facility] Comment on above: Performed By: #### L IVER, LIPID, TSH, FT3, T4 #### [facility] [address] [place] [address] Dr. Frank Hills Globulin (S) [Mass/Vol] 3.0 g/dL Normal [facility] Comment on above: Performed By: #### L IVER, LIPID, TSH, FT3, T4 #### [facility] [address] [place] [address] Dr. Frank Hills Glucose [Mass/Vol] 97 mg/dL Normal 74-106 [facility] Comment on above: Performed By: #### L IVER, LIPID, TSH, FT3, T4 #### [facility] [address] [place] [address] Dr. Frank Hills Potassium [Moles/Vol] 4.2 mmol/L Normal 3.5-5.1 [facility] Comment on above: Performed By: #### L IVER, LIPID, TSH, FT3, T4 #### [facility] [address] [place] [address] Dr. Frank Hills Protein [Mass/Vol] 6.7 g/dL Normal 6.4-8.2 [facility] Comment on above: Performed By: #### L IVER, LIPID, TSH, FT3, T4 #### [facility] [address] [place] [address] Dr. Frank Hills Sodium [Moles/Vol] 141 mmol/L Normal 136-145 [facility] Comment on above: Performed By: #### L IVER, LIPID, TSH, FT3, T4 #### [facility] [address] [place] [address] Dr. Frank Hills Urea nitrogen [Mass/Vol] 13.0 mg/dL Normal 7.0-18.0 [facility] Comment on above: Performed By: #### L IVER, LIPID, TSH, FT3, T4 #### [facility] [address] [place] [address] Dr. Frank Hills Urea nitrogen/Creatinine [Mass ratio] 20.3 mg/mg Normal [facility] Comment on above: Performed By: #### L IVER, LIPID, TSH, FT3, T4 #### [facility] [address] [place] [address] Dr. Frank Hills SED RATE [facility] 2021 SED RATE 8 mm/hr Normal <=30 [facility] Comment on above: Performed By: #### L IVER, LIPID, TSH, FT3, T4 #### [facility] [address] [place] [address] Dr. Frank Hills UA RANDOM W/MICROSCOPICon BACTERIA NONE SEEN Normal NONE SEEN [facility] Comment on above: Performed By: #### L IVER, LIPID, TSH, FT3, T4 #### [facility] [facility] [address] [place] [address] Dr. Frank Hills Bilirubin Ql (U) Negative Normal NEGATIVE [facility] Comment on above: Performed By: #### L IVER, LIPID, TSH, FT3, T4 #### [facility] [address] [place] [address] Dr. Frank Hills CAST NONE SEEN Normal NONE SEEN [facility] Comment on above: Performed By: #### L IVER, LIPID, TSH, FT3, T4 #### [facility] [address] [place] [address] Dr. Frank Hills Clarity (U) CLEAR Normal CLEAR [facility] Comment on above: Performed By: #### L IVER, LIPID, TSH, FT3, T4 #### [facility] [address] [address] [address] Frank Hills Color (U) LT. YELLOW Normal YELLOW [facility] Comment on above: Performed By: #### L IVER, LIPID, TSH, FT3, T4 #### [facility] [address] [address] [address] Frank Hills Crystals LM Nom (Urine sed) NONE SEEN Normal NONE SEEN [facility] Comment on above: Performed By: #### L IVER, LIPID, TSH, FT3, T4 #### [facility] [address] [place] [address] Dr. Frank Hills Epithelial cells LM Ql (Urine sed) FEW Abnormal NONE SEEN /RARE [facility] Comment on above: Performed By: #### L IVER, LIPID, TSH, FT3, T4 #### [facility] [address] [place] [address] Dr. Frank Hills Glucose Ql (U) Negative Normal NEGATIVE [facility] Comment on above: Performed By: #### L IVER, LIPID, TSH, FT3, T4 #### [facility] [address] [place] [address] Dr. Frank Hills Hemoglobin Ql (U) Negative Normal NEGATIVE [facility] Comment on above: Performed By: #### L IVER, LIPID, TSH, FT3, T4 #### [facility] [address] [place] [address] Dr. Frank Hills Ketones Ql (U) Negative Normal NEGATIVE [facility] Comment on above: Performed By: #### L IVER, LIPID, TSH, FT3, T4 #### [facility] [address] [place] [address] Dr. Frank Hills LEUKOCYTES TRACE Abnormal NEGATIVE [facility] Comment on above: Performed By: #### L IVER, LIPID, TSH, FT3, T4 #### [facility] [address] [place] [address] Dr. Frank Hills MUCOUS NONE SEEN Normal NONE SEEN [facility] Comment on above: Performed By: #### L IVER, LIPID, TSH, FT3, T4 #### [facility] [address] [place] [address] Dr. Frank Hills Nitrite Ql (U) Negative Normal NEGATIVE [facility] Comment on above: Performed By: #### L IVER, LIPID, TSH, FT3, T4 #### [facility] [address] [address] [address] Frank Hills pH (U) 6.5 [pH] Normal 5-9 [facility] Comment on above: Performed By: #### L IVER, LIPID, TSH, FT3, T4 #### [facility] [address] [place] [address] Dr. Frank Hills RBC 0-2 Normal 0-2 [facility] Comment on above: Performed By: #### L IVER, LIPID, TSH, FT3, T4 #### [facility] [address] [place] [address] Dr. Frank Hills SPEC GRAVITY 1.025 Normal 1.005-<=1.025 [facility] Comment on above: Performed By: #### L IVER, LIPID, TSH, FT3, T4 #### [facility] [address] [place] [address] Dr. Frank Hills UA PROTEIN Negative Normal NEGATIVE/ TRACE [facility] Comment on above: Performed By: #### L IVER, LIPID, TSH, FT3, T4 #### [facility] [address] [place] [address] Dr. Frank Hills Urobilinogen Qn (U) 0.2 {Flaquita'U}/dL Normal 0.2 - 1. 0 [facility] Comment on above: Performed By: #### L IVER, LIPID, TSH, FT3, T4 #### [facility] [address] [place] [address] Dr. Frank Hills WBC 0-2 Abnormal NONE SEEN [facility] Comment on above: Performed By: #### L IVER, LIPID, TSH, FT3, T4 #### [facility] [address] [address] [address] Frank Hills C3 and C4 COMPLEMENTon 04-21 Complement C3, Serum 171 mg/dL Critically high 82-167 [facility] Comment on above: Performed By: #### L IVER, LIPID, TSH, FT3, T4 #### [facility] [address] [address] [address] Frank Hills Complement C4, Serum 40 mg/dL Critically high 12-38 [facility] Comment on above: Performed By: #### L IVER, LIPID, TSH, FT3, T4 #### [facility] [address] [address] [address] Frank Hills COMPLEMENT TOTAL (CH50)on Complement, Total (CH50) >60 Normal >41 [facility] Comment on above: Result Comment: Age [...] L IVER, LIPID, TSH, FT3, T4 #### [facility] [address] [address] [address] Frank Hills CBC AUTO DIFFon 04-20-2022 BASO # 0.0 103/ul Normal 0.0-0.1 [facility] Comment on above: Performed By: #### L IVER, LIPID, TSH, FT3, T4 #### [facility] [address] [address] [address] Frank Hills Basophils/100 WBC (Bld) 0.4 % Normal 0.2-2.0 [facility] Comment on above: Performed By: #### L IVER, LIPID, TSH, FT3, T4 #### [facility] [address] [address] [address] Frank Hills EO # 0.1 103/ul Normal 0.0-0.7 [facility] Comment on above: Performed By: #### L IVER, LIPID, TSH, FT3, T4 #### [facility] [address] [place] [address] Dr. Frank Hills Eosinophils/100 WBC (Bld) 1.7 % Normal 0.9-7.0 [facility] Comment on above: Performed By: #### L IVER, LIPID, TSH, FT3, T4 #### [facility] [address] [place] [address] Dr. Frank Hills Erythrocyte distribution width (RBC) [Ratio] 13.2 % Normal 11.0-15.0 [facility] Comment on above: Performed By: #### L IVER, LIPID, TSH, FT3, T4 #### [facility] [address] [place] [address] Dr. Frank Hills Hematocrit (Bld) [Volume fraction] 39.6 % Normal 36.0-48.0 [facility] Comment on above: Performed By: #### L IVER, LIPID, TSH, FT3, T4 #### [facility] [address] [place] [address] Dr. Frank Hills Hemoglobin (Bld) [Mass/Vol] 12.7 g/dL Normal 12.0-16.0 [facility] Comment on above: Performed By: #### L IVER, LIPID, TSH, FT3, T4 #### [facility] [address] [place] [address] Dr. Frank Hills IG # 0.02 10e3/ul Normal 0.00-0.03 [facility] Comment on above: Performed By: #### L IVER, LIPID, TSH, FT3, T4 #### [facility] [address] [place] [address] Dr. Frank Hills IG % 0.4 % Normal 0.0-0.5 [facility] Comment on above: Performed By: #### L IVER, LIPID, TSH, FT3, T4 #### [facility] [address] [place] [address] Dr. Frank Hills LYMPH # 0.9 103/ul Critically low 1.2-3.8 [facility] Comment on above: Performed By: #### L IVER, LIPID, TSH, FT3, T4 #### [facility] [address] [place] [address] Dr. Frank Hills Lymphocytes/100 WBC (Bld) 17.3 % Critically low 20.5-60.0 [facility] Comment on above: Performed By: #### L IVER, LIPID, TSH, FT3, T4 #### [facility] [address] [place] [address] Dr. Frank Hills MANUAL DIFF REQ NO Normal [facility] Comment on above: Performed By: #### L IVER, LIPID, TSH, FT3, T4 #### [facility] [address] [place] [address] Dr. Frank Hills MCH (RBC) [Entitic mass] 33.7 pg Normal 26.7-34.0 [facility] Comment on above: Performed By: #### L IVER, LIPID, TSH, FT3, T4 #### [facility] [address] [place] [address] Dr. Frank Hills MCHC (RBC) [Mass/Vol] 32.1 g/dL Normal 29.9-35.2 [facility] Comment on above: Performed By: #### L IVER, LIPID, TSH, FT3, T4 #### [facility] [address] [place] [address] Dr. Frank Hills MCV (RBC) [Entitic vol] 105.0 fL Critically high 81.0-99.0 [facility] Comment on above: Performed By: #### L IVER, LIPID, TSH, FT3, T4 #### [facility] [address] [place] [address] Dr. Frank Hills MONO # 0.5 103/ul Normal 0.3-0.8 [facility] Comment on above: Performed By: #### L IVER, LIPID, TSH, FT3, T4 #### [facility] [address] [place] [address] Dr. Frank Hills Monocytes/100 WBC (Bld) 8.9 % Normal 1.7-12.0 [facility] Comment on above: Performed By: #### L IVER, LIPID, TSH, FT3, T4 #### [facility] [address] [address] [address] Frank Hills NEUT # 3.7 103/ul Normal 1.4-6.5 [facility] Comment on above: Performed By: #### L IVER, LIPID, TSH, FT3, T4 #### [facility] [address] [address] [address] Frank Hills Neutrophils/100 WBC (Bld) 71.3 % Normal 43.0-75.0 [facility] Comment on above: Performed By: #### L IVER, LIPID, TSH, FT3, T4 #### [facility] [address] [address] [address] Frank Hills Platelet mean volume (Bld) [Entitic vol] 8.9 fL Critically low 9.5-13.5 [facility] Comment on above: Performed By: #### L IVER, LIPID, TSH, FT3, T4 #### [facility] [address] [address] [address] Frank Hills PLT 198 103/ul Normal 150-450 [facility] Comment on above: Performed By: #### L IVER, LIPID, TSH, FT3, T4 #### [facility] [address] [id number] [address] Frank Hills RBC 3.77 106/ul Critically low 4.20-5.40 [facility] Comment on above: Performed By: #### L IVER, LIPID, TSH, FT3, T4 #### [facility] [address] [address] [address] Frank Hills WBC 5.2 103/ul Normal 4.0-11.0 [facility] Comment on above: Performed By: #### L IVER, LIPID, TSH, FT3, T4 #### [facility] [address] [address] [address] Frank Hills MRI BRAIN WO CONon [...] CHARO MAY Date: 2022-04-20 16:44 Normal [facility] PROF 14(COMP METB)on 022 Albumin [Mass/Vol] 4.0 g/dL Normal 3.4-5.0 [facility] Comment on above: Performed By: #### L IVER, LIPID, TSH, FT3, T4 #### [facility] [address] [address] [address] Frank Hills Albumin/Globulin [Mass ratio] 1.1 {ratio} Normal [facility] Comment on above: Performed By: #### L IVER, LIPID, TSH, FT3, T4 #### [facility] [address] [address] [address] Frank Hills ALP [Catalytic activity/Vol] 68 U/L Normal 46-116 [facility] Comment on above: Performed By: #### L IVER, LIPID, TSH, FT3, T4 #### [facility] [address] [address] [address] Frank Hills ALT [Catalytic activity/Vol] 35 U/L Normal 14-59 [facility] Comment on above: Performed By: #### L IVER, LIPID, TSH, FT3, T4 #### [facility] [address] [address] [address] Frank Hills Anion gap [Moles/Vol] 10.1 mmol/L Normal [facility] Comment on above: Performed By: #### L IVER, LIPID, TSH, FT3, T4 #### [facility] [address] [place] [address] Dr. Frank Hills AST [Catalytic activity/Vol] 31 U/L Normal 15-37 [facility] Comment on above: Performed By: #### L IVER, LIPID, TSH, FT3, T4 #### [facility] [address] [place] [address] Dr. Frank Hills Bilirubin [Mass/Vol] 0.9 mg/dL Normal 0.2-1.0 [facility] Comment on above: Performed By: #### L IVER, LIPID, TSH, FT3, T4 #### [facility] [address] [place] [address] Dr. Frank Hills Calcium [Mass/Vol] 9.0 mg/dL Normal 8.5-10.1 [facility] Comment on above: Performed By: #### L IVER, LIPID, TSH, FT3, T4 #### [facility] [address] [place] [address] Dr. Frank Hills Chloride [Moles/Vol] 104 mmol/L Normal 98-107 [facility] Comment on above: Performed By: #### L IVER, LIPID, TSH, FT3, T4 #### [facility] [address] [address] [address] Frank Hills CO2 [Moles/Vol] 29.7 mmol/L Normal 21.0-32.0 [facility] Comment on above: Performed By: #### L IVER, LIPID, TSH, FT3, T4 #### [facility] [address] [place] [address] Dr. Frank Hills Creatinine [Mass/Vol] 0.68 mg/dL Normal 0.55-1.02 [facility] Comment on above: Performed By: #### L IVER, LIPID, TSH, FT3, T4 #### [facility] [address] [address] [address] Frank Hills EGFR-AF SYRIAN >60 Normal >=60 [facility] Comment on above: Performed By: #### L IVER, LIPID, TSH, FT3, T4 #### [facility] [address] [address] [address] Frank Hills EGFR-NON AF SYRIAN >60 Normal >=60 [facility] Comment on above: Performed By: #### L IVER, LIPID, TSH, FT3, T4 #### [facility] [address] [place] [address] Dr. Frank Hills Globulin (S) [Mass/Vol] 3.5 g/dL Normal [facility] Comment on above: Performed By: #### L IVER, LIPID, TSH, FT3, T4 #### [facility] [address] [place] [address] Dr. Frank Hills Glucose [Mass/Vol] 92 mg/dL Normal 74-106 [facility] Comment on above: Performed By: #### L IVER, LIPID, TSH, FT3, T4 #### [facility] [address] [place] [address] Dr. Frank Hills Potassium [Moles/Vol] 3.8 mmol/L Normal 3.5-5.1 [facility] Comment on above: Performed By: #### L IVER, LIPID, TSH, FT3, T4 #### [facility] [address] [place] [address] Dr. Frank Hills Protein [Mass/Vol] 7.5 g/dL Normal 6.4-8.2 [facility] Comment on above: Performed By: #### L IVER, LIPID, TSH, FT3, T4 #### [facility] [address] [place] [address] Dr. Frank Hills Sodium [Moles/Vol] 140 mmol/L Normal 136-145 [facility] Comment on above: Performed By: #### L IVER, LIPID, TSH, FT3, T4 #### [facility] [address] [place] [address] Dr. Frank Hills Urea nitrogen [Mass/Vol] 14.0 mg/dL Normal 7.0-18.0 [facility] Comment on above: Performed By: #### L IVER, LIPID, TSH, FT3, T4 #### [facility] [address] [place] [address] Dr. Frank Hills Urea nitrogen/Creatinine [Mass ratio] 20.6 mg/mg Normal [facility] Comment on above: Performed By: #### L IVER, LIPID, TSH, FT3, T4 #### [facility] [address] [place] [address] Dr. Frank Hills SED RATE [facility] 2021 SED RATE 6 mm/hr Normal <=30 [facility] Comment on above: Performed By: #### S EDR #### [facility] [address] [place] [address] Dr. Frank Hills UA RANDOM W/MICROSCOPICon BACTERIA NONE SEEN Normal NONE SEEN [facility] Comment on above: Performed By: #### L IVER, LIPID, TSH, FT3, T4 #### [facility] [address] [place] [address] Dr. Frank Hills Bilirubin Ql (U) Negative Normal NEGATIVE [facility] Comment on above: Performed By: #### L IVER, LIPID, TSH, FT3, T4 #### [facility] [address] [place] [address] Dr. Frank Hills CAST NONE SEEN Normal NONE SEEN [facility] Comment on above: Performed By: #### L IVER, LIPID, TSH, FT3, T4 #### [facility] [address] [place] [address] Dr. Frank Hills Clarity (U) CLEAR Normal CLEAR [facility] Comment on above: Performed By: #### L IVER, LIPID, TSH, FT3, T4 #### [facility] [address] [place] [address] Dr. Frank Hills Color (U) LT. YELLOW Normal YELLOW [facility] Comment on above: Performed By: #### L IVER, LIPID, TSH, FT3, T4 #### [facility] [address] [address] [address] Frank Hills Crystals LM Nom (Urine sed) NONE SEEN Normal NONE SEEN [facility] Comment on above: Performed By: #### L IVER, LIPID, TSH, FT3, T4 #### [facility] [address] [address] [address] Frank Hills Epithelial cells LM Ql (Urine sed) RARE Normal NONE SEEN /RARE [facility] Comment on above: Performed By: #### L IVER, LIPID, TSH, FT3, T4 #### [facility] [address] [place] [address] Dr. Frank Hills Glucose Ql (U) Negative Normal NEGATIVE [facility] Comment on above: Performed By: #### L IVER, LIPID, TSH, FT3, T4 #### [facility] [address] [place] [address] Dr. Frank Hills Hemoglobin Ql (U) Negative Normal NEGATIVE [facility] Comment on above: Performed By: #### L IVER, LIPID, TSH, FT3, T4 #### [facility] [address] [place] [address] Dr. Frank Hills Ketones Ql (U) Negative Normal NEGATIVE [facility] Comment on above: Performed By: #### L IVER, LIPID, TSH, FT3, T4 #### [facility] [address] [place] [address] Dr. Frank Hills LEUKOCYTES Negative Normal NEGATIVE [facility] Comment on above: Performed By: #### L IVER, LIPID, TSH, FT3, T4 #### [facility] [address] [place] [address] Dr. Frank Hills MUCOUS TRACE Abnormal NONE SEEN [facility] Comment on above: Performed By: #### L IVER, LIPID, TSH, FT3, T4 #### [facility] [address] [place] [address] Dr. Frank Hills Nitrite Ql (U) Negative Normal NEGATIVE [facility] Comment on above: Performed By: #### L IVER, LIPID, TSH, FT3, T4 #### [facility] [address] [place] [address] Dr. Frank Hills pH (U) 6.0 [pH] Normal 5-9 [facility] Comment on above: Performed By: #### L IVER, LIPID, TSH, FT3, T4 #### [facility] [address] [place] [address] Dr. Frank Hills RBC NONE SEEN Abnormal 0-2 [facility] Comment on above: Performed By: #### L IVER, LIPID, TSH, FT3, T4 #### [facility] [address] [place] [address] Dr. Frank Hills SPEC GRAVITY 1.020 Normal 1.005-<=1.025 [facility] Comment on above: Performed By: #### L IVER, LIPID, TSH, FT3, T4 #### [facility] [address] [place] [address] Dr. Frank Hills UA PROTEIN Negative Normal NEGATIVE/ TRACE [facility] Comment on above: Performed By: #### L IVER, LIPID, TSH, FT3, T4 #### [facility] [address] [place] [address] Dr. Frank Hills Urobilinogen Qn (U) 0.2 {Flaquita'U}/dL Normal 0.2 - 1. 0 [facility] Comment on above: Performed By: #### L IVER, LIPID, TSH, FT3, T4 #### [facility] [address] [place] [address] Dr. Frank Hills WBC NONE SEEN Normal NONE SEEN [facility] Comment on above: Performed By: #### L IVER, LIPID, TSH, FT3, T4 #### [facility] [address] [place] [address] Dr. Frank Hills Ambulatory Clinical Summaryo n 10-27-2021 Ambulatory Clinical Summary {[id number] Franc [facility] Patient Educationon 10-27- 21 Patient Education Urology [...] nerve stimulation). ? For women, using a territory sales manager medical to prevent urine leaks. This is a [...] after experiencing incontinence. General instructions ? Take ibrd-wao-nnrqdnl and prescription medicines only as (more content not included)... Normal [facility] Urology Office/Clinic Noteon 10-27-2021 Urology Office/Clinic Note [...] urine and/or bladder capacity by US- non-imaging 00310 Urnls Dip Stick Auto w/o Microscopy POC [id number] I have reviewed the previous health record information and history for this patient from Dr. Ramos Follow-up With When Contact Information Richard Leal MD, Maximo Dhaliwal, URO Only if needed [facility] [address] [place] [address]- Additional Instructions: Patient Education Urinary Incontinence I, [...] Diverticulosis Dysuria Encounter for screening colonoscopy for vct-lhcv-dudb patient Hemifacial spasm History of shingles Hyperlipidemia Hypertension Hyperthyroidism Insomnia Nocturia Osteoarthritis Polyneuropathy Post-void dribbling Raynaud phenomenon Recurrent UTI Rosacea Urethral stricture Historical No qualifying data Procedure/Surgical History Hip replacement (12/13/2016), Fusion of lumbar spine (12/06/2011), Ablation (08/18/2005), Excision of sebaceous cyst (08/27/1999), Arthroscopy of knee, Dilatation and curettage, Excision of ganglion cyst, E (more content not included)... Normal [facility] Comment on above: Result Comment: Elec tronically Signed By: Richard Leal MD, Maximo Dhaliwal\.br\Date and Time Signed: 10/27/21 11:16 EST\.br\Electronically Co-Signed By: Snow Lundberg MA\.br\Date and Time Co-Signed: 10/27/21 11:12 EST Ambulatory Clinical Summaryo n 04-23-2021 Ambulatory Clinical Summary {[id number]}CD:[id number] Normal [facility] Patient Educationon 04-23-20 21 Patient Education Urinary [...] It is (more content not included)... Normal [facility] Urology Office/Clinic Noteon 04-23-2021 Urology Office/Clinic Note [...] procedure, # 2 cap(s), Refills(s) 0, Pharmacy: [facility]/pharmacy #[id number], 172.7, cm, 02/24/21 8:22:00 EDT, Height/Length Dosing, 99.8, kg, 02/24/21 8:21:00 EDT... Urnls Dip Stick Auto w/o Microscopy POC [id number] I have reviewed the previous health record information and history for this pt. from Dr. Ramos. Follow-up With When Contact Information Richard Leal MD, Maximo Dhaliwal, URO [address] [place] [id number]- Additional Instructions: 6mos. pvr Patient Education Urinary [...] Diverticulosis Dysuria Encounter for screening colonoscopy for zuk-hnjo-liwx patient Hemifacial spasm History of shingles Hyperlipidemia Hypertension Hyperthyroidism Insomnia Osteoarthritis Polyneuropathy (more content not included)... Normal [facility] Comment on above: Result Comment: Elec tronically Signed By: Richard Leal MD, Maximo Dhaliwal\.br\Date and Time Signed: 04/23/21 12:21 EDT\.br\Electronically Co-Signed By: Lisa WILLIAMSON, Indu Roman\.br\Date and Time Co-Signed: 04/23/21 11:40 EDT Coding Summary.on 03-16-2021 Coding Summary. CD:[id number] Gh 0bWw+PGhlYWQ+KD1ZYCVnX 29tmKSayZ0LS8hUHV8EQCY IIHIFGU0QJY1fpZF4HUmyQ 2VybiAv DheuyFZrNF13WKz1AAH8hD idRPiacU1rbRGeO5l6KoQx ZV81gD63DTpwUOUsRaD5Ug ZpbjsgbWFy O6ghZnDkaXDxBya+PHRhYm xlIHdpZHRoPScxMDAlJyBz gYqcGO7cVl3bKOGcSPVgeH xhcHNlOiBj k0qwEZZdREedGY8rdFdiT2 WrjWH7DJWou3e3Rt45eEO+ VRJjMXZ6fPdxSBbnj854Wu Nfk6piRZZ6 oCEsOSonMIR0H43gi6J3JM UbURRnYRH3mRF4oD1wcRll eiscL6PzcBLnWzL3KNI1fF VcxB2slMft yntlkT0lIao+I17PJC7XNR QGXD5JVle1A6KrVuaxrOV+ TM71RFIjAI54rSKwkTQeg2 ijbPu3SmQt WXXcQMD1sUblPClys4QxWB OpL79gkNMsh9U3URWfbNei ePUyAhRniXW6dW7zPShpht pig5hbvnxn Uoqig8zock58dU44B46rQA klFKOwTKD3FUYwHQDywErp up8syN0aMp8+LPwph7hhk9 fiwBw6UnDx TALatbApxFtzXTU5w0PxNw 52L2WrdIhpy0UrEcc9vr07 vJGhd5R5sSZ8PZmpMKPnnC 8sARvuEnE1 FRMaOiSnoF74iDWoQPfiVu 8ywXmyqWlzJA7jPOEralvn CBWafQ6iBAMgkUUacUjhII 4wNTBpbjtm n668OkQxDCR9YOFewXRtN9 SkwJ8ySyWxLNNaLDDgK3Ff bZPdOHucG091JRxkPjU0ST ZwpjJfX6Bi URKvgXhqByR0j0C1Vl8Dh3 IbnqrkTTP9HShlQEE3AsMa IdSjReQ2V7BaXga1TUVktC omDT9fE3Js XDAmzrlhgaonbYJ9WLWgBV QdeT16yPLaWQkdDi7lu6H3 z415MVFwZVFveL09Pc0wnZ ogMTBwdCBU sF6nlcviq7jxlaktWlBzSJ GmCPb4ONw6AERhbKurCgTh UKT3VhL0ZZV5wIRwfH8gyG ixpzbpiP0h Oyc+D34zhA0kLXF9TDC7zb gcAHBfhcXbOJ41WK90E7Ku PjwvdGFibGU+PGRpdiBzdH rmFZ5wOaOj b8oug0RoUSgeC8IxUGQwIW fyBrs9BMKeSVB8nMV1vZ3h QSZnCZckn8A2sPM3D4Isxc Cmbt0wt8by BJZuRPcfX33gcMVrc6Q9LE QbxEA1IZXeiVvoLrNupF01 Oyc+RIRlgGtps7PcHryon0 fxn8xhrAv3 FfWfFSAqhaFfbHuoQPJ7i6 LwEx35M75bLUjlEJTmCXOo IFTlTFJydQkuoa1crH7kZa 8+PGNvbCB3 tIH0rE9nIBAtFzN7QYboU1 32KpDyqSRaSsxgi6ocp6ma yQy5WdHyDJEmazKucKgcDG J8q4JkJn66 W92yBAcpIMAhRUIzZVLuJV LngUjclv9bwI3pRz1+PC9j s6fxob34pP53jYC+PHRkIH S4dSutGCpx HIBtcY9bAQsjImE3OFScFt AdjX71pCRzEPncWd0szJkf eUqgNK1nRJGzcoqgz288Kr Smr9yaOOJl sXFxVUulGIM2T77ov0C6XD TsXRYxIPD7nFR3lP0yzIvb bjogbGVmdDsgdmVydGljYW imQEcuM759 IHRvcDsnPlBhdGllbnQgTm IvFHt7E4TlYnt9ZQJibOrc WO3loXIhVTitBs1knJgnxC qwII2vYZYe yiybq099XeKum6wjPQFbuY YsVRfpCTK4B94qw2R7QLEl DHOsNDP4iVS0aR0fvIvcja ogbGVmdDsg ibTnrAqvTNeaHDeqR324VP RvcDsnPkJpcnRoIERhdGU6 HF02YB84sUBnp5Z5qHX3T2 BhZGRpbmct uroxhXK7KHRtTVJijN21Pi 7fjGdzPa0eGYStJND6FPEj sYNlX0ReaP2eIgFhDIAqGO XtI6LabGCz BIpxT864QRwwBnI0UABupn PmG8CrYFQmdUakDuS8y1F0 Sv8NY5N7SG04HQ11zZNak2 N8zZX1P7Dz NBBypgkjascwsTQ9LWIbJT UysY60Qi0tkVwkPa0hKSPg NUW5ZRXieJElJ3AtgS0gKp AjMDAwMDAw T1LcuCIpFMgqU635PMwoHr E3GKGwodWhS9JkKOCwjUon XtY6j9U9Kw9MKJy3VO41WW 57lDKdf6X9 hPL2S8LxCNIajrtyddogeU S6WRRnYXXpyX16Tc7ygFxb Gd2mNPZlUHI9SQFinWWhZ1 AuwR2hNwMb GNBsQZXoW4JltGQzMNteU0 13HDomHrY8BFWulpHiC2Sd SBVjfOgqKsI6u9V0Mp5NSE NjOQ08WOD3 dBK2RV72CX29G2CxRsjteO FibGU+PHRhYmxlIHdpZHRo YFpdYRTlHoQmhVxcIS5sZp 9yZGVyLWNv hNnewJYiOuKoq8yvOYHhWJ xhGP5zuHkiR1XqpVY8XDOp f1z0Mj46A64nY1VzmXW+PG XoxZY9iPL1 vY2oMjLkXcO6JPpyL450Wh UpoAVaSprpg0jdl8ewgFk1 IyV4DYBhzsKkiZtaYAK6a8 HaVc38O57o IHdpZHRoPSIxNSUiIHZhbG tqjc2ckP3qZe4+PGNvbCB3 uJP2fL7pRtQjCfX9VVqyV4 49InRvcCIv Dwepu1kkk6pixIi2KqLtKE SnroHugRpcVHV2t5FyQv28 U9CtjBnuq2EvExv5nx49cZ Atb7K2uPD2 L2KsKFZbujdtsJKtlRbyBV 2dIQUcchhoOEEkaY8tMHXm J8h2ZeYnTyK3MVwlT3Lgjk C5FBXevVFs ASfhZUI7U31qu6X2DJHwXF RdORK1tZV2fH0niExflkxn bGVmdDsgdmVydGljYWwtYW vaY930YPKk uQnySNKqzL8bBKEgtALqkM arXA5pVQDhcrloKnCBZ6ty VGVCEBxJGDy2J4RjPur4BZ UvvPxkKJ9v iIZaJZphBp3coKexnAiuLJ 1vNYDwakwyOEAopN4kAEQq mOTgyAioKT6gGOLuzwncq0 95UfKpWSD0 KMVigYQwJ4BpzD8cElBcZJ SiBJInO9QynIOmOYvtN307 MWfoToQ0HLQrfeJoN5BoPM FsaWduOiB0 y1D1Qj2eQL5wAp9xKSInAI 65PY35qBAxk5V4yJU3E0Vr UFUbglsokhvtlHC1RBFlZP KxxJ40aFRr IVvfIk9cz9R8o022WXUqJL OavZ25Bl6ohDmeDGBsiXCX vE0ppturz2njdozeRuZxSK IvBZx2YDk3 LFLbySklFzEiBSP6VeT4YE L0zXHzgV3byWhgzuhbaZ4q Oyc+VqogFLJpspX6I1SgHx a1FIKqmPsi DF5ypFHrJKpoDf1egKnteP ikPU2zFRBorsfrTZZpvD3l EYCfwWFbhDhmUV7gVPZabr joy593CdWn RUB5JNRzmQNdD0SbqZ8iDr YyPKElYEDwB6CynSEdLXpm J437VVzdLpU6CMSsmlAuK1 FsLWFsaWdu KnW5n9H1Tr9AXC5osOJ8I2 DmSpo9TQUauKawSX5hxHNg UEjsBg2xqXcjsEirWW8sBF BpbjtwYWRk kY8mTJBrhYDmyGrrID0vIG Plkqbyj984VaPtEJF3TDSq aVFnY5LcoN9eBmDpJCMrYI FtI5DrcBDa QMbbS406AWntJnG8VUZvmn EuC2KqKQWweCjhAdG9w8B6 Iy5OeIMlLWRyQY42UN20WS 12M5VgGbgb dGFibGU+PHRhYmxlIHdpZH SiQBjrSOIkPtVdtOdtEB4d Oz0hDPCqPJMadWjhqTArMz Goj0wfNYLw KYkyBO8inFjbX2YluRS8TZ Yep0t5Wk72X99pL0CjuZW+ LSBezPO0gTU8nE1aHsIoZw C7SPxoE315 NjHjoRYhUoqjn6jwv6ksjQ w5YeEfITIundQyxDnwSLP6 a5UlGr90P28rYEbwIXYtMF IyMCUiIHZh zQcbnm3czW0lNx4+PGNvbC B5aWB5aV2pXtFpSgK4HRmu Y093UoOqdPSuLixgW12pB7 JvdXA+PHRy Nxd7UPPjsKjjIV7osPPvDQ ocBk5bHIH7NdCoBlDdYYji U5NfZTFkazimbelvvMX0EG BuDGBttA34 Gn0zrLpvUu5vFXFuRVI9DJ AliTSyF1BcwQ4iUwGdWPYq OZHfW3GfoZQvIWfuF093CO ddLlJ4UIJf hsUzG8GsCIRedSoyXbE1o9 S7Dp2VaIdfvOMhMD1qBnJf QSr6I8HxCqh4GDVavXkbYW 0ncGFkZGlu Zg6exYxomEjoBO3nXLBzdp jjq667JgYow7qvNLWwdRBf JGvsIHT1C36fo2R9JUAnGB EhFTP2dQM8 oN6xpRymrfuprUClzBcdfs AbfNeyBZtqZWhdV314WHSb cWmwHzMDXbk9Z5CrAtf9VS VufNheLJ7u nFBmBJiqDm1npGwiuLjqTX 3uBCUesuram169QjXif6ur UAGykDElZFpvUFA4O96ek5 L8YMKrUFEi TRD3mGT5lD2ikPszvngpoB VmdDsgdmVydGljYWwtYWxp Z987JCEuuXlrSb9QIcz3T5 FbUnp4BFSn mIpeIO3uqBKuFWpiCs0dsS ilqGzbXJ2lTFYkzabdc115 DjVam6ciGJKfoKPkSHepDP X9Z54lk8M4 ZWSfMTSlVZG0yNB9nO2fwO lnbjogbGVmdDsgdmVydGlj RJsuEMrbS254LFZwaSqtPx BheWVyOjwv dGQ+ZR75wb15H1IzYsirPz x2ROJfHPO6jDA0uH4zJAKm OGpdy4R7qYK4P0JwyzKdxz 2xb3zhAYAe ZTog (more content not included)... [facility] [place] [facility] Consent for Procedure/Surger yon 03-16-2021 Consent for Procedure/Surgery [id number]#1. 00CD:127 [facility] [place] [facility] IntraOperative Documentson 0 03-16-2021 IntraOperative Documents [id number]#1. 00CD:127 [facility] [place] [facility] Consent for Treatmenton 0 Consent for Treatment [id number]#1.0 0CD:127 [facility] [place] [facility] Main OR Intraoperative Recor don 03-12-2021 Main OR Intraoperative Record IntraOp Document Type FTURO Summary Primary Physician: Richard Leal MD, Maximo Dhaliwal Finalized Date/Time: 03/12/21 13:52:16 Pt. Name: DANYELLE HASKINS John Paul/Sex: 1955 Female Med Rec #: [id number] Physician: Richard Leal MD, Maximo Dhaliwal Financial #: [id number] Pt. Type: O Room/Bed: / Admit/Disch: 03/12/21 [...] Performed Surgeon - Primary Scrub - Primary Lugger - Primary Time In 03/12/21 13:44:00 03/12/21 [...] By: Savanna Azevedo RN 03/12/21 13:[address] [facility] Main OR Preoperative Recordo n 03-12-2021 Main OR Preoperative Record Holding Area Document Type FTURO Summary Primary Physician: Maximo Ramos Jr., MD Finalized Date/Time: 03/12/21 13:23:03 Pt. Name: DANYELLE HASKINS Georgina Coker/Sex: 1955 Female Med Rec #: [id number] Physician: Maximo Ramos Jr., MD Financial #: [id number] Pt. Type: O Room/Bed: / Admit/Disch: 03/12/21 [...] 13:08 Savanna Azevedo RN 03/12/21 13:[address] [facility] Operative Reporton Operative Report Patient: DANYELLE HASKINS [...] with antibiotic coverage, Follow up arranged. Normal [facility] Comment on above: Result Comment: [...] complications The patient was prepped with Betadine. [facility] RAD - Ultrasound Reporton RAD - Ultrasound Report [id number]#1.0 0CD:[address] [facility] Physician Referralon 021 Physician Referral [id number]#1.00 CD:[address] [facility] Ambulatory Clinical Summaryo n 02-24-2021 Ambulatory Clinical Summary {[id number]}CD:[id number] Normal [facility] Patient Educationon 02-25-20 Patient Education Urinary Tract [...] Document Reviewed: 12/01/2012 ExitCare? Patient Information ?2013 [employer] [facility] [place] [facility] Urology Office/Clinic Noteon 02-24-2021 Urology Office/Clinic Note Chief Complaint New patient recurring UTI sxs This patient is a 65-year-old female with a history of recurrent urinary tract infections. She was recurrent infections. She is been treated several times with oral antibiotics for symptoms of dysuria frequency and urgency continue to recur. She is here today to discuss treatment options to establish urologic care. [facility] Staff New patient Danyelle is a [...] Will order Local anesthesia. ABX sent to [facility] in [place]. Ordered: Urology Procedure Order US Renal 2. Dysuria (R30.0: Dysuria) Moderate. Ordered: Urnls Dip Stick Auto w/o Microscopy POC [id number] Urology Procedure Order US Renal 3. Nocturia [...] procedure, # 2 cap(s), Refills(s) 0, Pharmacy: [facility]/pharmacy #[id number], 172.7, cm, 02/24/21 8:22:00 EDT, Height/Length Dosing, 99.8, kg, 02/24/21 8:21:00 (more content not included)... Normal [facility] Comment on above: Result Comment: [...] complications The patient was prepped with Betadine. Embarkly CT UPPER EXTREMITY WO CONTRA ST RIGHTon 03-10-2020 CT UPPER EXTREMITY WO CONTRAST RIGHT [facility] Department of Radiology [address] [place] [address] ======== Patient Name: DANYELLE HASKINS : 1955 Sex: F Age: Race: White Pt. Location: 84 Patient Status: O Ordered Date: 03/10/2020 2:25:00 PM Completed Date: 03/10/2020 04:00 PM Requesting Provider: JOE ZUNIGA Attending Provider: JOE ZUNIGA Report Copy To: YULISA BATRES Signs & Symptoms: S42.201A Unsp fracture of upper end of right humerus, init I10 History: [place] Patient to go to clinic after call results to [phone] ortho clinic NO PC MEDICARE/BC CPT CODE 20659 *MLA Comments: right shoulder Exam: CT UPPER [...] reports Electronically signed: Abdelrahman Constantino. Transcribed by: [email or web address], User Resident: ISABELL MARKHAM Electronically Signed by: ABDELRAHMAN CONSTANTINO @ 03/10/2020 04:46 PM I personally read this/these film(s) with this resident Normal [facility] Comment on above: Order Comment: right shoulder SHOULDER RIGHTon 03-10-2020 SHOULDER RIGHT [facility] Department of Radiology [address] [place] [id number] ======== Patient Name: DANYELLE HASKINS : 1955 Sex: F Age: Race: White Pt. Location: Patient Status: O Ordered Date: 03/10/2020 2:05:00 PM Completed Date: 03/10/2020 02:13 PM Requesting Provider: JOE ZUNIGA Attending Provider: Report Copy To: Signs & Symptoms: S42.201A Unsp fracture of upper end of right humerus, init I10 History: [place] Comments: , Views (X-RAY, SHOULDER): Axillary , [...] reports Electronically signed: Abdelrahman Constantino. Transcribed by: [email or web address], User Resident: ISABELL MARKHAM Electronically Signed by: ABDELRAHMAN CONSTANTINO @ 03/10/2020 04:48 PM I personally read this/these film(s) with this resident Normal [facility] Comment on above: Order Comment: [...] with no immediate complications Preparation: with Betadine. [facility] CBC, EDIF, PLATELETon 2018 ABSOLUTE BASOPHIL COUNT 0.[address] Basophils/100 WBC (Bld) 0.6 % 0 - 2 % [address] Differential cell count method Nom (Bld) AUTO DIFF % [address] Eosinophils #/vol (Bld) 0.00 10*3/uL X10 [address] Eosinophils/100 WBC (Bld) 1.0 % 0 - 11 % [address] Erythrocyte distribution width Ratio (RBC) 14.2 % 11.5 - 14.5 % [address] Hematocrit Volume Fraction (Bld) 33.5 % Low 36 - 48 % [address] Hemoglobin mass conc (Bld) 11.5 g/dL Low [address] Interpretation and review of laboratory results Abnormal [address] Lymphocytes #/vol (Bld) 0.70 10*3/uL X10 [address] Lymphocytes/100 WBC (Bld) 16.1 % Low 20 - 55 % [address] MCH Entitic mass (RBC) 34.6 pg 26 - [address] MCHC mass conc (RBC) 34.2 g/dL [place] [address] MCV Entitic volume (RBC) 101.1 fL High [address] Monocytes #/vol (Bld) 0.4 10*3/uL X10 [address] Monocytes/100 WBC (Bld) 9.9 % 0 - 10 % [address] Neutrophils #/vol (Bld) 3.3 10*3/uL [address] Neutrophils/100 WBC (Bld) 72.4 % 37 - 75 % [address] Platelet mean volume Entitic volume (Bld) 7.[address] Platelets #/vol (Bld) 191 10*3/uL [address] RBC #/vol (Bld) 3.31 10*6/uL Low [address] WBC #/vol (Bld) 4.5 10*3/uL [address] CBC, EDIF, PLATELETon 2018 ABSOLUTE BASOPHIL COUNT 0.[address] Basophils/100 WBC (Bld) 0.2 % 0 - 2 % [address] Differential cell count method Nom (Bld) AUTO DIFF % [address] Eosinophils #/vol (Bld) 0.00 10*3/uL X10 [address] Eosinophils/100 WBC (Bld) 0.1 % 0 - 11 % [address] Erythrocyte distribution width Ratio (RBC) 13.8 % 11.5 - 14.5 % [address] Hematocrit Volume Fraction (Bld) 30.2 % Low 36 - 48 % [address] Hemoglobin mass conc (Bld) 10.5 g/dL Low [address] Interpretation and review of laboratory results Abnormal [address] Lymphocytes #/vol (Bld) 0.50 10*3/uL X10 [address] Lymphocytes/100 WBC (Bld) 8.9 % Low 20 - 55 % [address] MCH Entitic mass (RBC) 34.8 pg 26 - [address] MCHC mass conc (RBC) 34.8 g/dL [place] [address] MCV Entitic volume (RBC) 99.[address] Monocytes #/vol (Bld) 0.6 10*3/uL X10 [address] Monocytes/100 WBC (Bld) 10.2 % High 0 - 10 % [address] Neutrophils #/vol (Bld) 4.5 10*3/uL [address] Neutrophils/100 WBC (Bld) 80.6 % High 37 - 75 % [address] Platelet mean volume Entitic volume (Bld) 7.[address] Platelets #/vol (Bld) 181 10*3/uL [address] RBC #/vol (Bld) 3.02 10*6/uL Low [address] WBC #/vol (Bld) 5.6 10*3/uL [address] CBC, EDIF, PLATELETon 2018 ABSOLUTE BASOPHIL COUNT 0.[address] Basophils/100 WBC (Bld) 0.2 % 0 - 2 % [address] Differential cell count method Nom (Bld) AUTO DIFF % [address] Eosinophils #/vol (Bld) 0.00 10*3/uL X10 [address] Eosinophils/100 WBC (Bld) 0.7 % 0 - 11 % [address] Erythrocyte distribution width Ratio (RBC) 13.9 % 11.5 - 14.5 % [address] Hematocrit Volume Fraction (Bld) 33.6 % Low 36 - 48 % [address] Hemoglobin mass conc (Bld) 11.5 g/dL Low [address] Interpretation and review of laboratory results Abnormal [address] Lymphocytes #/vol (Bld) 0.70 10*3/uL X10 [address] Lymphocytes/100 WBC (Bld) 14.4 % Low 20 - 55 % [address] MCH Entitic mass (RBC) 34.7 pg 26 - [address] MCHC mass conc (RBC) 34.1 g/dL [place] [address] MCV Entitic volume (RBC) 101.8 fL High [address] Monocytes #/vol (Bld) 0.5 10*3/uL X10 [address] Monocytes/100 WBC (Bld) 9.8 % 0 - 10 % [address] Neutrophils #/vol (Bld) 3.7 10*3/uL [address] Neutrophils/100 WBC (Bld) 74.9 % 37 - 75 % [address] Platelet mean volume Entitic volume (Bld) 7.[address] Platelets #/vol (Bld) 202 10*3/uL [address] RBC #/vol (Bld) 3.30 10*6/uL [address] WBC #/vol (Bld) 4.9 10*3/uL [address] REPEAT ABO/RH (D) TYPINGon 0 11-21-2018 ABO and Rh group Nom (Bld ) Positive [address] SCREEN: MRSA ONLY, NARES (IS OLATION SCREEN)on 11-21-2018 MRSA isol Org specific cx Ql (Nose) Negative [address] STAPHYOCOCCUS AUREUS BY PCR Negative [address] Comment on above: TESTING PERFORMED BY [...] Panelon - Calcium 9.2 mg/dL Normal 8.4-10.2 [facility] Comment on above: Performed By: #### C HEM8 ####Unless otherwise noted, all testing performed by [address] [phone]: [id number] Director: Ramon Araujo M.D. Chloride 110 mmol/L High 98-108 [facility] Comment on above: Performed By: #### C HEM8 ####Unless otherwise noted, all testing performed by [address] [phone]: [id number] Director: Ramon Araujo M.D. CO2 27 mmol/L Normal 21-32 [facility] Comment on above: Performed By: #### C HEM8 ####Unless otherwise noted, all testing performed by [address] [phone]: [id number] Director: Ramon Araujo M.D. Creatinine 0.60 mg/dL Normal 0.60-1.20 [facility] Comment on above: Performed By: #### C HEM8 ####Unless otherwise noted, all testing performed by [address] [phone]: [id number] Director: Ramon Araujo M.D. eGFR (black) mL/min/{1.73_m2} Normal [facility] Comment on above: Result Comment: Afri can [place] GFR Calc Performed By: #### C HEM8 ####Unless otherwise noted, all testing performed by [facility] [address] [phone]: [id number] Director: Ramon Araujo M.D. eGFR (non-black) mL/min/{1.73_m2} Normal [facility] Comment on above: Result Comment: Non- [...] ####Unless otherwise noted, all testing performed by [address] [phone]: [id number] Director: Ramon Araujo M.D. Glucose mass conc 87 mg/dL Normal 70-99 [facility] Comment on above: Result Comment: This test result might be falsely depressed or falsely elevated onsamples drawn from patients taking Sulfasalazine and Sulfapyridine.Venipuncture should occur prior to taking either of these drugs. Performed By: #### C HEM8 ####Unless otherwise noted, all testing performed by [address] [phone]: [id number] Director: Ramon Araujo M.D. Potassium molar conc 4.2 mmol/L Normal 3.5-5.1 [facility] Comment on above: Performed By: #### C HEM8 ####Unless otherwise noted, all testing performed by [address] [phone]: [id number] Director: Ramon Araujo M.D. Sodium 143 mmol/L Normal 135-145 [facility] Comment on above: Performed By: #### C HEM8 ####Unless otherwise noted, all testing performed by [place] [address], [place] [phone]: [id number] Director: Ramon Araujo M.D. Urea nitrogen 10 mg/dL Normal 8-25 [facility] Comment on above: Performed By: #### C HEM8 ####Unless otherwise noted, all testing performed by [place] [address], [place] [phone]: [id number] Director: Ramon Araujo M.D. [facility] [...] Dictated by KAREEM Croft, for Dr. Mcclure. [facility] History and Physical Reporto n 08-02-2017 History and Physical Report Type: SurgicalDictated by: To Be Signed by: Transcribed by: Transcribed Date/Time: 06/23/2017 11:46Dictation Date/Time: 06/22/2017 17:52Report: DATE OF VISIT: 06/22/2017 HISTORY OF PRESENT ILLNESS: Patient is here today for evaluation and treatment of her failed left total knee arthroplasty. She is an established patient of [facility]. She was last seen on 04/27/2017, diagnosed [...] patient is followed by Dr. Monaco, a psychiatry adult physician and by Dr. Lili Parks, a neurologist. [...] of surgery and 2 weeks postoperatively. 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 Normal [facility] Repor ton 07-26-2017 [facility] Report Type: OfficeDictated by: To be signed by: Transcribed by: Transcribed D/ Dictation D/ Report: HAPPY ADMISSION NOTE DATE OF ADMISSION: 07/21/17 REASON [...] use. The patient is seen by a psychiatry adult physician, has a pain specialist, and a neurologist. [...] 2) Orders reviewed and continue same. Normal [facility] C. difficile Assayon 017 C. difficile interpretation Negative Normal [facility] Comment on above: Result Comment: Rapi d test procedural control acceptable. Performed By: #### z CDIF ####Unless otherwise noted, all testing performed by [address] [phone]: [id number] Director: Ramon Araujo M.D. Specimen Acceptable (CDIF)on 07-24-2017 Specimen Acceptable (CDIF) YES Normal [facility] Comment on above: Result Comment: C. d ifficile testing result(s) to follow. Performed By: #### C DSPEC ####Unless otherwise noted, all testing performed by [address] [phone]: [id number] Director: Ramon Araujo M.D. CBC with Diffon 07-23-2017 Basophils Auto #/vol (Bld) 0.0 K/mcL Normal 0-0.2 [facility] Comment on above: Performed By: #### C BCDIF, CMET, TSH ####Unless otherwise noted, all testing performed by [address] [phone]: [id number] Director: Ramon Araujo M.D. Basophils/100 WBC Auto (Bld) 0.5 % Normal [facility] Comment on above: Performed By: #### C BCDIF, CMET, TSH ####Unless otherwise noted, all testing performed by [place] [phone]: [id number] Director: Ramon Araujo M.D. Eosinophils 0.1 K/mcL Normal 0-0.5 [facility] Comment on above: Performed By: #### C BCDIF, CMET, TSH ####Unless otherwise noted, all testing performed by [address] [phone]: [id number] Director: Ramon Araujo M.D. Eosinophils/100 leukocytes 1.7 % Normal [facility] Comment on above: Performed By: #### C BCDIF, CMET, TSH ####Unless otherwise noted, all testing performed by [address] [phone]: [id number] Director: Ramon Araujo M.D. Erythrocyte distribution width Auto Ratio (RBC) 14.6 % High 10.0-14.4 [facility] Comment on above: Performed By: #### C BCDIF, CMET, TSH ####Unless otherwise noted, all testing performed by [place] [phone]: [id number] Director: Ramon Araujo M.D. Erythrocytes (RBC) 3.32 M/mcL Low 3.7-5.0 [facility] Comment on above: Performed By: #### C BCDIF, CMET, TSH ####Unless otherwise noted, all testing performed by [address] [phone]: [id number] Director: Ramon Araujo M.D. Hematocrit (HCT) 33.9 % Low 34.4-44.8 [facility] Comment on above: Performed By: #### C BCDIF, CMET, TSH ####Unless otherwise noted, all testing performed by [place] [phone]: [id number] Director: Ramon Araujo M.D. Hemoglobin mass conc (Bld) 11.8 g/dL Normal 11.6-15.4 [facility] Comment on above: Performed By: #### C BCDIF, CMET, TSH ####Unless otherwise noted, all testing performed by [address] [phone]: [id number] Director: Ramon Araujo M.D. Lymphocytes 0.8 K/mcL Low 1.0-3.7 [facility] Comment on above: Performed By: #### C BCDIF, CMET, TSH ####Unless otherwise noted, all testing performed by [address] [phone]: [id number] Director: Ramon Araujo M.D. Lymphocytes/100 leukocytes 18.3 % Normal [facility] Comment on above: Performed By: #### C BCDIF, CMET, TSH ####Unless otherwise noted, all testing performed by [address] [phone]: [id number] Director: Ramon Araujo M.D. MCH 35.6 pg High 27.9-33.9 [facility] Comment on above: Performed By: #### C BCDIF, CMET, TSH ####Unless otherwise noted, all testing performed by [address] [phone]: [id number] Director: Ramon Araujo M.D. MCHC mass conc (RBC) 34.8 g/dL Normal 33.1-35.1 [facility] Comment on above: Performed By: #### C BCDIF, CMET, TSH ####Unless otherwise noted, all testing performed by [address] [phone]: [id number] Director: Ramon Araujo M.D. MCV 102.1 fL High 82.6-98.9 [facility] Comment on above: Performed By: #### C BCDIF, CMET, TSH ####Unless otherwise noted, all testing performed by [address] [phone]: [id number] Director: Ramon Araujo M.D. Monocytes 0.6 K/mcL Normal 0.1-0.6 [facility] Comment on above: Performed By: #### C BCDIF, CMET, TSH ####Unless otherwise noted, all testing performed by [facility] [address] [phone]: [id number] Director: Ramon Araujo M.D. Monocytes/100 leukocytes 13.1 % Normal [facility] Comment on above: Performed By: #### C BCDIF, CMET, TSH ####Unless otherwise noted, all testing performed by [phone]: [id number] Director: Ramon Araujo M.D. Neutrophils 3.1 K/mcL Normal 1.2-6.9 [facility] Comment on above: Performed By: #### C BCDIF, CMET, TSH ####Unless otherwise noted, all testing performed by [phone]: [id number] Director: Ramon Araujo M.D. Platelet mean volume (PMV) 7.4 fL Normal 7.0-10.6 [facility] Comment on above: Performed By: #### C BCDIF, CMET, TSH ####Unless otherwise noted, all testing performed by [address] [id number]: [id number] Director: Ramon Araujo M.D. Platelets 229 K/mcL Normal 162-402 [facility] Comment on above: Performed By: #### C BCDIF, CMET, TSH ####Unless otherwise noted, all testing performed by [address] [id number]: [id number] Director: Ramon Araujo M.D. Segmented Neut % 66.4 % Normal [facility] Comment on above: Performed By: #### C BCDIF, CMET, TSH ####Unless otherwise noted, all testing performed by [address] [phone]: [id number] Director: Ramon Araujo M.D. WBC (Leukocytes) 4.6 K/mcL Normal 3.4-10.6 [facility] Comment on above: Performed By: #### C BCDIF, CMET, TSH ####Unless otherwise noted, all testing performed by [address] [phone]: [id number] Director: Ramon Araujo M.D. [facility] 07-23-2017 Alanine aminotransferase (ALT) 27 U/L Normal 14-65 [facility] Comment on above: Result Comment: This test result might be falsely depressed or falsely elevated onsamples drawn from patients taking Sulfasalazine and Sulfapyridine.Venipuncture should occur prior to taking either of these drugs. Performed By: #### C BCDIF, CMET, TSH ####Unless otherwise noted, all testing performed by [address] [phone]: [id number] Director: Ramon Araujo M.D. Albumin 2.8 g/dL Low 3.2-5.2 [facility] Comment on above: Performed By: #### C BCDIF, CMET, TSH ####Unless otherwise noted, all testing performed by [address] [phone]: [id number] Director: Ramon Araujo M.D. Alkaline phosphatase (ALP) 53 U/L Normal 40-150 [facility] Comment on above: Performed By: #### C BCDIF, CMET, TSH ####Unless otherwise noted, all testing performed by [address] [id number]: [id number] Director: Ramon Araujo M.D. Aspartate aminotransferase (AST) 32 U/L Normal 0-45 [facility] Comment on above: Result Comment: This test result might be falsely depressed or falsely elevated onsamples drawn from patients taking Sulfasalazine and Sulfapyridine.Venipuncture should occur prior to taking either of these drugs. Performed By: #### C BCDIF, CMET, TSH ####Unless otherwise noted, all testing performed by [place] [phone]: [id number] Director: Ramon Araujo M.D. Bilirubin (total) 0.9 mg/dL Normal 0.3-1.2 [facility] Comment on above: Performed By: #### C BCDIF, CMET, TSH ####Unless otherwise noted, all testing performed by [address] [phone]: [id number] Director: Ramon Araujo M.D. Calcium 8.7 mg/dL Normal 8.4-10.2 [facility] Comment on above: Performed By: #### C BCDIF, CMET, TSH ####Unless otherwise noted, all testing performed by [address] [id number]: [id number] Director: Ramon Araujo M.D. Chloride 108 mmol/L Normal 98-108 [facility] Comment on above: Performed By: #### C BCDIF, CMET, TSH ####Unless otherwise noted, all testing performed by [address] [phone]: [id number] Director: Ramon Araujo M.D. CO2 26 mmol/L Normal 21-32 [facility] Comment on above: Performed By: #### C BCDIF, CMET, TSH ####Unless otherwise noted, all testing performed by [address] [phone]: [id number] Director: Ramon Araujo M.D. Creatinine 0.57 mg/dL Low 0.60-1.20 [facility] Comment on above: Performed By: #### C BCDIF, CMET, TSH ####Unless otherwise noted, all testing performed by [address] [phone]: [id number] Director: Ramon Araujo M.D. eGFR (black) mL/min/{1.73_m2} Normal [facility] Comment on above: Result Comment: Afri can [place] GFR Calc Performed By: #### C BCDIF, CMET, TSH ####Unless otherwise noted, all testing performed by [address] [phone]: [id number] Director: Ramon Araujo M.D. eGFR (non-black) mL/min/{1.73_m2} Normal [facility] Comment on above: Result Comment: Non- [...] ####Unless otherwise noted, all testing performed by [address] [id number]: [id number] Director: Ramon Araujo M.D. Glucose mass conc 86 mg/dL Normal 70-99 [facility] Comment on above: Result Comment: This test result might be falsely depressed or falsely elevated onsamples drawn from patients taking Sulfasalazine and Sulfapyridine.Venipuncture should occur prior to taking either of these drugs. Performed By: #### C BCDIF, CMET, TSH ####Unless otherwise noted, all testing performed by [place] [phone]: [id number] Director: Ramon Araujo M.D. Potassium molar conc 3.7 mmol/L Normal 3.5-5.1 [facility] Comment on above: Performed By: #### C BCDIF, CMET, TSH ####Unless otherwise noted, all testing performed by [address] [id number]: [id number] Director: Ramon Araujo M.D. Protein 6.1 g/dL Normal 6.0-8.0 [facility] Comment on above: Performed By: #### C BCDIF, RADHAT, TSH ####Unless otherwise noted, all testing performed by [address] [id number]: [id number] Director: Ramon Araujo M.D. Sodium 141 mmol/L Normal 135-145 [facility] Comment on above: Performed By: #### C BCDIF, CMET, TSH ####Unless otherwise noted, all testing performed by [address] [id number]: [id number] Director: Ramon Araujo M.D. Urea nitrogen 11 mg/dL Normal 8-25 [facility] Comment on above: Performed By: #### C BCDIF, CMET, TSH ####Unless otherwise noted, all testing performed by [address] [id number]: [id number] Director: Ramon Araujo M.D. [facility] Thyroid stimulating hormone (TSH) 1.67 uIU/mL Normal 0.320-5.000 [facility] Comment on above: Performed By: #### C BCDIF, CMET, TSH ####Unless otherwise noted, all testing performed by [address] [id number]: [id number] Director: Ramon Araujo M.D. [facility] 07-21-2017 [facility] NOTES Normal [facility] NURSING NOTEon 07-21-2017 [facility] NOTES Normal [facility] NOT[facility] Normal [facility] NOT[facility] Normal [facility] NOT[facility] Normal [facility] NOT[facility] Normal [facility] NOT[facility] Normal [facility] Normal [facility] NOT[facility] NOTES Normal [facility] NOT[facility] Normal [facility] NOTES Normal [facility] NOT[facility] Normal [facility] PROGRESSon 07-21-2017 [facility] NOTES Normal [facility] NOT[facility] Normal [facility] Normal [facility] NOT[facility] Normal [facility] NURSING NOTEon 07-20-2017 [facility] NOTES Normal [facility] NOT[facility] Normal [facility] NOT[facility] Normal [facility] NOT[facility] Normal [facility] PLAN OF CAREon 07-20-2017 [facility] NOTES Normal [facility] NOT[facility] Normal [facility] NOT[facility] Normal [facility] NOT[facility] Normal [facility] PROGRESSon 07-20-2017 [facility] NOTES Normal [facility] NOT[facility] Normal [facility] NOT[facility] Normal [facility] NOT[facility] Normal [facility] NOT[facility] Normal [facility] NOT[facility] Normal [facility] Anes Post-opon 2017 [facility] NOTES Normal [facility] CONSULTon 2017 [facility] NOT[facility] Normal [facility] Certificatioon 2017 [facility] NOTES Normal [facility] NURSING NOTEon 2017 [facility] NOT[facility] NOT[facility] Normal [facility] NOT[facility] Normal [facility] NOT[facility] Normal [facility] PLAN OF CAREon 2017 [facility] NOTES Normal [facility] NOT[facility] Normal [facility] Normal [facility] NOT[facility] Normal [facility] PROGRESSon 2017 [facility] NOT[facility] Normal [facility] Normal [facility] NOT[facility] Normal [facility] Normal [facility] NOTES Normal [facility] NOT[facility] Normal [facility] Normal [facility] NOT[facility] Normal [facility] BRIEF OP NOTon 07-18-2017 [facility] NOTES Normal [facility] OP NOTEon 07-18-2017 [facility] NOTES Normal [facility] OR NURSINGon 07-18-2017 [facility] NOTES Normal [facility] XR KNEE LEFT 2 VIEWSon 07-18 [...] changes as above in satisfactory alignment. Normal [facility] PROGRESSon 07-01-2017 [facility] NOTES Normal [facility] Vital Signs Date Time Vital Sign Value Performing Clinician Facility 08-16-2024 11:30-0400 Body height 172.7 cm Elie Harper DPM Work Phone: [facility] 08-16-2024 11:30-0400 Body mass index (BMI) [Ratio] 34.21 kg/m2 Elie Harper DPM Work Phone: [facility] 08-16-2024 11:30-0400 Body weight 102.06 kg Elie Harper DPM Work Phone: [facility] 08-16-2024 11:30-0400 Respiratory rate 17 /min Elie Harper DPM Work Phone: [facility] 05-31-2024 09:44-0400 Body height 170.2 cm New Mcclure MD Work Phone: [facility] 05-31-2024 09:44-0400 Body mass index (BMI) [Ratio] 37.09 kg/m2 New Mcclure MD Work Phone: [facility] 05-31-2024 09:44-0400 Body temperature 97.5 [degF] New Mcclure MD Work Phone: [employer] [facility] 05-31-2024 09:44-0400 Body weight 107.41 kg New Mcclure MD Work Phone: [employer] [facility] 03-22-2024 15:49-0400 Body height 170.2 cm New Mcclure MD Work Phone: [employer] 03-22-2024 15:49-0400 Body mass index (BMI) [Ratio] 35.4 kg/m2 New Mcclure MD Work Phone: [employer] [facility] 03-22-2024 15:49-0400 Body weight 102.51 kg New Mcclure MD [facility] 02-23-2024 11:02-0400 Body height 170.2 cm Rajinder 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 Work Phone: [employer] 02-23-2024 11:02-0400 Body mass index (BMI) [Ratio] 35.4 kg/m2 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 Work Phone: [employer] [facility] 02-23-2024 11:02-0400 Body weight 102.51 kg 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 Work Phone: [facility] 11-03-2023 10:09-0500 Diastolic blood pressure 89 mm[Hg] Pepe [employer] [facility] 11-03-2023 10:09-0500 Systolic blood pressure 191 mm[Hg] Pepe [employer]aka [employer] [facility] 11-03-2023 09:53-0500 Body height 170.2 cm Pepe [employer]aka [employer] [facility] 11-03-2023 09:53-0500 Body mass index (BMI) [Ratio] 34.46 kg/m2 Pepe [employer] [facility] 11-03-2023 09:53-0500 Body weight 99.79 kg Pepe [employer]aka [employer] [facility] 11-03-2023 09:53-0500 Heart rate 67 /min Pepe Chaka [employer] [facility] Comment on above: regular 11-03-2023 09:53-0500 Respiratory rate 20 /min Pepe Chaka [employer] [facility] Comment on above: lungs cta 11-03-2023 09:53-0500 SaO2% (BldA) [Mass fraction] 96 % Pepe [employer]aka [employer] [facility] 09-01-2023 12:59-0400 Body height 170.2 cm New Mcclure MD Work Phone: [facility] 09-01-2023 12:59-0400 Body mass index (BMI) [Ratio] 35.4 kg/m2 New Mcclure MD Work Phone: [facility] 09-01-2023 12:59-0400 Body temperature 98.2 [degF] New Mcclure MD Work Phone: [facility] 09-01-2023 12:59-0400 Body weight 102.51 kg New Mcclure MD Work Phone: [facility] 05-19-2023 14:41-0400 Body height 172.7 cm Rajinder Abby 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 Work Phone: [employer] [facility] 05-19-2023 14:41-0400 Body mass index (BMI) [Ratio] 34.36 kg/m2 Rajinder Abby 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 Work Phone: [employer] 05-19-2023 14:41-0400 Body temperature 97.59 [degF] Rajinder Abby 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 Work Phone: [employer] 05-19-2023 14:41-0400 Body weight 102.51 kg Rajinder Abby 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 Work Phone: [employer] 08-31-2021 15:30-0400 Body height 173.99 cm Stephen Alicea Other [employer] Other 08-31-2021 15:30-0400 Body mass index (BMI) [Ratio] 30.26 kg/m2 Stephen Alicea Other [employer] Other 08-31-2021 15:30-0400 Body weight 91.63 kg Stephen Alicea Other [employer] Other 08-31-2021 15:30-0400 Diastolic blood pressure 87 mm[Hg] Stephen Alicea Other [employer] Other 08-31-2021 15:30-0400 Systolic blood pressure 145 mm[Hg] Stephen Alicea Other [employer] Other 03-11-2021 13:50-0400 Body height 172.7 cm New Mcclure MD Work Phone: [employer] [facility] 03-11-2021 13:50-0400 Body mass index (BMI) [Ratio] 33.45 kg/m2 New Mcclure MD Work Phone: [facility] [employer] [facility] 03-11-2021 13:50-0400 Body temperature 97 [degF] New Mcclure MD Work Phone: [employer] [facility] 03-11-2021 13:50-0400 Body weight 99.79 kg New Mcclure MD Work Phone: [facility] [employer] [facility] 11-19-2020 14:21-0500 BMI (Body Mass Index) 34.1 kg/m2 [facility] [employer] [facility] 11-19-2020 14:21-0500 Body Temperature 97.11 [degF] [facility] [employer] [facility] 11-19-2020 14:21-0500 Body weight 100.25 kg [facility] [employer] [facility] tem 11-19-2020 14:21-0500 Height 171.5 cm [facility] [employer] [facility] 11-21-2019 13:29-0500 BMI (Body Mass Index) 33.42 kg/m2 [facility] 11-21-2019 13:29-0500 Body Temperature 97 [degF] [facility] 11-21-2019 13:29-0500 Body weight 99.7 kg [facility] [...] 14:44-0500 BMI (Body Mass Index) 30.87 kg/m2 [facility] Work Phone: 12-14-2018 14:44-0500 Body Temperature 97.9 [degF] [facility] Work Phone: 12-14-2018 14:44-0500 Height 172.7 cm [facility] Work Phone: 12-14-2018 14:44-0500 Weight 92.08 kg [facility] Work Phone: 11-24-2018 16:57-0500 Body Temperature 97 [degF] [facility] Work Phone: 11-24-2018 16:57-0500 BP Diastolic 77 mm[Hg] [facility] Work Phone: 11-24-2018 16:57-0500 BP Systolic 155 mm[Hg] [facility] Work Phone: 11-24-2018 16:57-0500 Pulse (Heart Rate) 79 /min [facility] Work Phone: 11-24-2018 16:57-0500 Pulse Oximetry 99 % [facility] Work Phone: 11-24-2018 16:57-0500 Respiratory Rate 18 /min [facility] Work Phone: 11-21-2018 09:00-0500 BMI (Body Mass Index) 32.19 kg/m2 [facility] Work Phone: 11-21-2018 09:00-0500 Height 172.7 cm [facility] Work Phone: 11-21-2018 09:00-0500 Weight 96.03 kg [facility] Work Phone: 10-23-2018 08:49-0500 BP Diastolic 75 mm[Hg] [employer]pe [employer] [facility] Work Phone: 10-23-2018 08:49-0500 BP Systolic 159 mm[Hg] [employer]pe [employer] [facility] Work Phone: 10-23-2018 08:49-0500 Pulse (Heart Rate) 100 /min [employer]pe [employer] [facility] Work Phone: 10-13-2018 09:01-0500 BMI (Body Mass Index) 31.93 kg/m2 [employer] [facility] Work Phone: 10-13-2018 09:01-0500 Body Temperature 97.81 [degF] [employer]pe [employer] [facility] Work Phone: 10-13-2018 09:01-0500 Height 172.7 cm Pepe [employer] [facility] Work Phone: 10-13-2018 09:01-0500 Pulse Oximetry 99 % Pepe [employer] [facility] Work Phone: 10-13-2018 09:01-0500 Respiratory Rate 16 /min Pepe [employer] [facility] Work Phone: 10-13-2018 09:01-0500 Weight 95.25 kg Pepe [employer]aka [employer] [facility] Work Phone: Encounters Encounter Date Encounter [...] minutes New Mcclure MD Work Phone: [facility] Comment on above: Pain in both knees, unspecified chronicity (Primary Dx) Start: 05-31-2024 End: 05-31-2024 Subsequent hospital visit by physician New Mcclure MD Work Phone: [facility] Start: 04-26-2024 End: 04-26-2024 ambulatory MAGALIE KAUFMAN Not Available Start: 04-19-2024 End: 04-19-2024 Office outpatient visit 25 minutes New Mcclure MD Work Phone: [facility] Comment on above: Pain in both knees, unspecified chronicity (Primary Dx) Start: 04-19-2024 End: 04-19-2024 Subsequent hospital visit by physician New Mcclure MD Work Phone: [facility] Start: 04-19-2024 ambulatory [facility] Start: 03-22-2024 End: 03-22-2024 Office outpatient visit 15 minutes New Mcclure MD Work Phone: [facility] Comment on above: Pain in both knees, unspecified chronicity (Primary Dx) Start: 03-22-2024 End: 03-22-2024 Subsequent hospital visit by physician New Mcclure MD Work Phone: [facility] Start: 03-22-2024 ambulatory [facility] Start: 02-23-2024 End: 02-23-2024 Postop follow up visit related to original px Rajinder Green 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 Work Phone: [facility] Comment on above: Hx of total knee art hroplasty, left (Primary Dx) Start: 02-23-2024 End: 02-23-2024 Subsequent hospital visit by physician Rajinder SCHWARTZ Work Phone: [facility] Start: 02-23-2024 ambulatory [facility] Start: 01-12-2024 End: 01-12-2024 Office outpatient visit 25 minutes New Mcclure MD Work Phone: [facility] Comment on above: Right knee pain, uns pecified chronicity (Primary Dx) Start: 01-12-2024 End: 01-12-2024 Subsequent hospital visit by physician New Mcclure MD Work Phone: [facility] Start: 01-12-2024 ambulatory [facility] Start: 12-22-2023 End: 12-22-2023 Subsequent hospital visit by physician Rajinder Green APRN-MARTY Work Phone: [facility] Start: 12-22-2023 ambulatory [facility] Start: 11-29-2023 End: 12-02-2023 Evaluation and management of inpatient [facility] Start: 11-10-2023 End: 11-10-2023 ambulatory ELIE HARPER Not Available Start: 11-03-2023 End: 11-03-2023 Admission to establishment New Mcclure MD Work Phone: [facility] Comment on above: Preop testing (Prima ry Dx); Abnormal finding of blood chemistry, unspecified; Abnormal coagulation profile Start: 11-03-2023 End: 11-03-2023 Patient encounter status New Mcclure MD Work Phone: [facility] Start: 11-03-2023 ambulatory [facility] Start: 11-03-2023 Encounter for other preprocedural examination [facility] Start: 09-01-2023 End: 09-01-2023 Office outpatient visit 40 minutes New Mcclure MD Work Phone: [facility] Comment on above: Hx of total knee art hroplasty, right (Primary Dx); Hx of total knee arthroplasty, left Start: 09-01-2023 End: 09-01-2023 Subsequent hospital visit by physician New Mcclure MD Work Phone: [facility] Start: 09-01-[address] [facility] Start: 05-19-2023 End: 05-19-2023 Postop follow up visit related to original px Rajinder Green APRN-UNCLAIMED 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 Work Phone: [facility] Comment on above: Hx of total knee art hroplasty, right (Primary Dx) Start: 05-19-2023 End: 05-19-2023 Subsequent hospital visit by physician Rajinder Green APRN-UNCLAIMED 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 Work Phone: [facility] Start: 05-19-2023 ambulatory [facility] Start: 03-18-2023 End: 03-18-2023 Subsequent hospital visit by physician New Mcclure MD Work Phone: [facility] Start: 02-08-2023 End: 02-09-[address] YULISA [...] 08-31-2021 End: 08-31-2021 ambulatory Stephen Alicea Other [employer] Other Start: 08-31-2021 Office outpatient ne w 30 minutes Stephen Alicea [facility] Start: 05-07-2021 End: 05-08-2021 ambulatory Mary Mal Facility:[facility] Start: 03-11-2021 End: 03-11-2021 Office outpatient visit 15 minutes New Mcclure MD Work Phone: [facility] Comment on above: Left knee pain, unsp ecified chronicity (Primary Dx); Right knee pain, unspecified chronicity Start: 11-19-2020 End: 11-19-2020 Office outpatient visit 15 minutes New Mcclure Work Phone: [facility] Comment on above: Hx of total knee art hroplasty, left (Primary Dx); Pain in prosthetic joint, initial encounter Start: 11-19-2020 End: 11-19-2020 Subsequent hospital visit by physician New Mcclure Work Phone: [facility] [employer] Start: 11-21-2019 End: 11-21-2019 Office outpatient visit 15 minutes New Mcclure Work Phone: [facility] Comment on above: History of total kne e arthroplasty, left (Primary Dx); Arthritis of right knee Start: 11-21-2019 End: 11-21-2019 Subsequent hospital visit by physician New Mcclure [facility] Start: 04-18-2019 End: 04-18-2019 Office outpatient visit 15 minutes New Mcclure Work Phone: [facility] Comment on above: Right hip pain (Prim ric Dx); Left knee pain, unspecified chronicity; Right knee pain, unspecified chronicity Start: 04-18-2019 End: 04-18-2019 Patient encounter procedure New Mcclure Work Phone: [employer] [facility] Start: 03-01-2019 End: 03-01-2019 Subsequent hospital visit by physician New Mcclure Work Phone: [facility] Start: 03-01-2019 End: 03-01-2019 Letter encounter Provider Aurelio Mcgraw [facility] Start: 03-01-2019 End: 03-01-2019 Office outpatient visit 15 minutes New Mcclure Work Phone: [facility] Comment on above: History of total kne e arthroplasty, left (Primary Dx); Right hip pain Start: 03-01-2019 End: 03-01-2019 Patient encounter procedure New Mcclure Work Phone: [facility] Start: 02-23-2019 End: 02-23-2019 Patient encounter procedure Other Other [facility] Start: 02-09-2019 End: 02-09-2019 Telephone encounter Marcie Grzegorz [facility] Comment on above: Leg Swelling Start: 01-05-2019 End: 01-05-2019 Patient encounter procedure Other Other [facility] Start: 01-03-2019 End: 01-03-2019 Office outpatient visit 15 minutes New Mcclure Work Phone: [facility] Comment on above: History of total kne e arthroplasty, left (Primary Dx) Start: 12-14-2018 End: 12-14-2018 Patient encounter procedure Rajinder Green Work Phone: [facility] Start: 12-14-2018 End: 12-14-2018 Postop follow up visit related to original px Rajinder Green Work Phone: [facility] Comment on above: Hx of total knee art hroplasty, left (Primary Dx) Start: 12-06-2018 End: 12-06-2018 Telephone encounter Marcie Lantigua [facility] Comment on above: Skin Problem Start: 11-30-2018 End: 11-30-2018 Patient encounter procedure Other Other NOTES/RESULTS Start: 11-21-2018 End: 11-24-2018 Evaluation and management of inpatient New Mcclure Work Phone: [facility] Comment on above: Pain in left knee Start: 10-23-2018 End: 10-23-2018 Patient encounter procedure New Mcclure Work Phone: [facility] Comment on above: Pre-op exam (Primary Dx) Start: 09-15-2018 End: 09-15-2018 Patient encounter procedure Richard Macdonald [facility] Orthopedics Start: 08-18-2017 [facility] Start: 07-24-2017 [facility] Start: 07-18-2017 End: 07-21-2017 Evaluation and management of inpatient [facility] Start: 07-01-2017 Ambulatory [facility] Procedures Date Procedure Procedure Detail [...] Blood count complete auto&auto difrntl wbc [employer] Phone: Start: 11-21-2018 End: 11-21-2018 X-ray of left knee [employer] Phone: Start: 11-21-2018 End: 11-21-2018 Cell count misc body fluids w/differential count [employer] Phone: Start: 11-21-2018 End: 11-21-2018 Cul bact melissa aerobic isol xcpt ur blood/stool [employer] Phone: Start: 11-21-2018 End: 11-21-2018 Culture bacterial any source anaerobic iso&id [employer] Phone: Start: 11-21-2018 End: 11-21-2018 Culture fngi mold/yeast prsmptv oth xcpt blood [employer] Phone: Start: 11-21-2018 End: 11-21-2018 Culture tubercle/oth acid-fast bacilli any isol [employer] Phone: Start: 11-21-2018 End: 11-21-2018 REPEAT ABO/RH (D) TYPING [employer] Phone: Start: 11-21-2018 End: 11-21-2018 Cultyp nuc acid amp prb cult/isolate ea orgnism [employer] Phone: Start: 10-23-2018 End: 10-23-2018 Standard ECG [employer] Phone: Plan of Treatment Date Care Activity Detail Author Start: 05-03-2025 End: 05-03-2025 Patient encounter procedure 05/03/2025 10:00 AM EDT Office Visit [facility] [address] [place] [address] Ramon Barreto DO [address] [place] [address] [facility] Start: 12-01-2024 Potassium [Moles/vol ume] in Serum or Plasma POTASSIUM [facility] Start: 11-28-2024 End: 11-28-2024 Patient encounter procedure 11/28/2024 11:10 AM EST Office Visit [facility] [address] [place] [address] New Mcclure MD [address] [place] [address] [facility] Start: 11-03-2024 Potassium [Moles/vol ume] in Serum or Plasma POTASSIUM [facility] Start: 10-25-2024 End: 10-25-2024 Patient encounter procedure 10/25/2024 11:30 AM EST Procedure Visit [facility] [address] [address] [place] [phone] Magalie Kaufman, [address] [place], [place] [id number] [facility] [address] Start: 10-15-2024 End: 10-15-2024 Patient encounter procedure 10/15/2024 2:00 PM EST Office Visit [facility] [address] [facility] [place] [phone] Angel Montenegro, [address] [place] [address] [facility] R[address] Start: 09-06-2024 End: 09-06-2024 Patient encounter procedure 09/06/2024 2:40 PM EDT Procedure Visit [facility] [address] [facility] [address] [place] [id number] Elie Harper DPM [address] [facility] [address] [place] [address] [facility] Start: 08-16-2024 End: 08-16-2024 Patient encounter procedure 08/16/2024 11:40 AM EDT Office Visit [facility] [address] [place] [address] Elie Harper DPM [address] [facility] [address] [place] [address] Abscess of toe, right (Primary Dx); Acquired deformity of left toe [facility] Comment on above: Abscess of toe, righ t (Primary Dx); Acquired deformity of left toe Start: 07-08-2024 Influenza vaccination INFLUENZA VACC INE (#1) [facility] Start: 05-31-2024 End: 05-31-2024 Patient encounter procedure 05/31/2024 9:30 AM EDT Office Visit [facility] [address] [place] [address] New Mcclure MD [address] [place] [address] [facility] Start: 04-27-2024 Potassium [Moles/vol ume] in Serum or Plasma POTASSIUM [facility] Start: 04-25-2024 End: 04-25-2024 Patient encounter procedure 04/25/2024 11:40 AM EDT Office Visit [facility] [address] [place] [address] Rajinder Green APRN-UNCLAIMED 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 [address] [place] [address] [facility] Start: 04-19-2024 End: 04-19-2024 Patient encounter procedure 04/19/2024 10:00 AM EDT Office Visit [facility] [address] [place] [address] New Mcclure MD [address] [place] [phone] [facility] Start: 03-22-2024 End: 03-22-2024 Patient encounter procedure 03/22/2024 3:30 PM EDT Office Visit [facility] [address] [place] [address] New Mcclure MD [address] [place] [address] [facility] Start: 02-23-2024 End: 02-23-2024 Patient encounter procedure 02/23/2024 11:00 AM EDT Office Visit [facility] [address] [place] [address] Rajinder Green, [employer] POL[employer]-UNCLAIMED 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 [address] [place] [address] [facility] Start: 11-29-2023 End: 11-29-2023 Evaluation and management of inpatient [facility] Comment on above: Failed total left kn ee replacement, initial encounter REVISION ARTHROPLAST Y KNEE Start: 11-29-2023 End: 11-29-2023 Revj tot knee arthrp fem&entire tibial compone REVISION ARTHROPLASTY KNEE Failed total left knee replacement, initial encounter 11/29/2023 10:00 AM EST [facility] Start: 11-03-2023 End: 12-05-2023 PREPARE TO TRANSFUSE RED BLOOD CELLS PREPARE TO TRANSFUSE RED BLOOD CELLS Blood Bank Routine Preop testing Expected: 11/03/2023, Expires: 12/05/2023 [facility] Work Phone: Comment on above: Expected: 11/03/2023 , Expires: 12/05/2023 Start: 09-01-2023 End: 09-01-2023 Patient encounter procedure 09/01/2023 1:00 PM EDT Office Visit [facility] [address] [place] [address] New Mcclure MD [address] [place] [address] [facility] Start: 08-31-2023 Screening for malign ant neoplasm of breast Mammogram [facility] Start: 07-08-2023 COVID-19 VACCINE ( season) COVID-19 VACCINE ( season) [facility] Start: 07-08-2023 Influenza vaccination INFLUENZA VACC INE (#1) [facility] Start: 04-14-2023 End: 04-14-2023 ambulatory 04/14/2023 Pre-Operative Nurse Assessment Internal Medicine [facility] Pre Ad[facility] Start: 12-24-2022 COVID-19 VACCINE (5 - Pfizer series) COVID-19 VACCINE (5 - Pfizer series) [facility] Start: 07-08-2021 Influenza vaccination INFLUENZ A VACCINE (Season Ended) [facility] Start: 11-19-2020 End: 11-19-2020 Office Visit 11/19/2020 Office Visit New Lucas MD [address] [place] [address] [phone] [facility] Start: 11-24-2019 Potassium molar conc POTASSIUM [place] [facility] Work Phone: Start: 11-23-2019 Potassium molar conc POTASSIUM [place] [facility] Work Phone: Start: 11-22-2019 End: 11-22-2019 Office Visit 11/22/2019 Office Visit New Lucas MD [address] [place] [address] [phone] [facility] Start: 10-23-2019 Potassium molar conc POTASSIUM Av [facility] Start: 09-11-2019 Pneumococcal vaccination PNEUM OCOCCAL VACCINE SERIES (2 of 2 - PPSV23 or PCV20) [facility] Start: 09-11-2019 Pneumococcal Vaccine : 65+ Years (2 of 2 - PPSV23 or PCV20) Pneumococcal Vaccine: 65+ Years (2 of 2 - PPSV23 or PCV20) [facility] Start: 07-08-2019 Influenza vaccination A [facility] Start: 04-18-2019 End: 04-18-2019 Office Visit 04/18/2019 Office Visit New Lucas MD [address] [place] [address] [phone] [facility] Start: 03-01-2019 End: 03-01-2019 Office Visit [facility] Comment on above: Arrived History of total kne e arthroplasty, left (Primary Dx) Start: 02-23-2019 End: 03-23-2019 X-ray of left knee XR KNEE LEFT 2 VIEWS Imaging Routine History of total knee arthroplasty, left Expected: 02/23/2019, Expires: 03/23/2019 [facility] Comment on above: Expected: 02/23/2019 , Expires: 03/23/2019 Start: 01-03-2019 End: 01-03-2019 Ambulatory 01/03/2019 Office Visit Orthopaedics New Mcclure MD [address] [place] [address] [phone] [facility] Start: 12-28-2018 End: 01-25-2019 X-ray of left knee XR KNEE LEFT 2 VIEWS Imaging Routine History of total knee arthroplasty, left Expected: 12/28/2018, Expires: 01/25/2019 [facility] Comment on above: Expected: 12/28/2018 , Expires: 01/25/2019 Start: 12-14-2018 End: 12-14-2018 Ambulatory [facility] Start: 11-21-2018 Ambulatory 11/21/2018 Pro cedure Pass [facility] Start: 11-21-2018 Inpatient Encounter [facility] Comment on above: REVISION ARTHROPLAST Y KNEE - extensor mech reconstruction - left Extensor mechanism m alalignment Start: 10-23-2018 End: 10-23-2018 Ambulatory 10/23/2018 Pre-Operative Nurse Assessment Internal Medicine [facility] Pre Ad[facility] Start: 07-21-2018 Finding of potassium level (finding) POTASSIUM [facility] Work Phone: Start: 2018 Pneumococcal vaccination [facility] Start: 07-08-2018 Influenza vaccination INFLUENZA VACC INE (#1) [facility] Work Phone: Start: 2003 Colonoscopy [facility] Work Phone: Start: 2003 Protein mass conc COLON CANCER SCREENING DISCUSSION [facility] Work Phone: Start: 2003 Zoster vaccine hzv l damian for subcutaneous use ZOSTER (SHINGLES) VACCINE (1 of 2) [facility] Start: 1998 Screening for malign ant neoplasm of colon COLORECTAL CANCER SCREENING DISCUSSION [facility] Start: 1993 Fasting lipid profile LIPID SCREENIN G [facility] Work Phone: Start: 1993 Lipid panel LIPID SCREENING [facility] Start: 1993 Protein mass conc MAMMOGRAM SC REENING DISCUSSION [facility] Work Phone: Start: 1993 Screening for malign ant neoplasm of breast MAMMOGRAM SCREENING DISCUSSION [facility] Start: 1993 Screening mammography MAMMOGRA M SCREENING DISCUSSION [facility] Work Phone: Start: 1974 Screening for malign ant neoplasm of cervix [facility] Start: 1972 Third diphtheria, tetanus and acellular pertussis (DTaP) vaccination TDAP (ADULT) [facility] Start: 1971 Tetanus vaccination TETANUS [facility] Work Phone: Start: 1969 COVID-19 VACCINE (1) COVID-19 VACCIN E (1) [facility] Start: 1953 Hepatitis C screening HEPATITI S C VIRUS SCREENING [facility] Start: 1953 Screening for malign ant neoplasm of colon [facility] Start: 1953 Tetanus vaccination TETANUS [facility] Start: 1953 End: 1953 Hepatitis C antibody, confirmatory test HEPATITIS C VIRUS SCREENING [facility] Work Phone: Start: 1953 End: 1953 Screening for osteoporosis DEXA SCAN DISCUSSION [facility] ACID FAST CULTURE [facility] Work Phone: Comment on above: ONE TIME for 1 Occur rences starting 11/21/2018 ANAEROBE CULTURE [facility] Work Phone: Comment on above: ONE TIME for 1 Occur rences starting 11/21/2018 BACTERIAL CULTURE AN D DIRECT SMEAR, LESION, TISSUE, DEVICE BACTERIAL CULTURE AND DIRECT SMEAR, LESION, TISSUE, DEVICE Routine Extensor mechanism malalignment ONE TIME for 1 Occurrences starting 11/21/2018 [facility] Work Phone: Comment on above: ONE TIME for 1 Occur rences starting 11/21/2018 Basic metabolic 2000 panel - Serum or Plasma BASIC METABOLIC PANEL Routine Pre-op exam Ordered: 10/23/2018 [facility] Work Phone: Comment on above: Ordered: 10/23/2018 BODY FLUID CULTURE A ND DIRECT SMEAR BODY FLUID CULTURE AND DIRECT SMEAR Routine 11/21/2018 11:00 AM EST [facility] Work Phone: CBC, EDIF, PLATELET CBC, EDIF, P LATELET Routine Pre-op exam Ordered: 10/23/2018 [facility] Work Phone: Comment on above: Ordered: 10/23/2018 FUNGUS CULTURE [facility] Work Phone: Comment on above: ONE TIME for 1 Occur rences starting 11/21/2018 Hemoglobin A1c/Hemoglobin.total mass fraction (Bld) HEMOGLOBIN A1C Routine Pre-op exam Ordered: 10/23/2018 [facility] Work Phone: Comment on above: Ordered: 10/23/2018 LARGE JOINT INJECTIO N: R knee LARGE JOINT INJECTION: R knee Procedures Routine Right knee pain, unspecified chronicity 04/18/2019 4:00 PM EDT [employer] PROTIME-INR PROTIME-INR STAT Pre-op exam Ordered: 10/23/2018 [facility] Work Phone: Comment on above: Ordered: 10/23/2018 Radiography for bone length studies XR BONE LENGTH STUDY Imaging Routine Hx of total knee arthroplasty, right 09/01/2023 12:48 PM EDT [employer] Radiography for bone length studies XR BONE LENGTH STUDY Imaging Routine Hx of total knee arthroplasty, left Ordered: 02/21/2024 [employer] Comment on above: Ordered: 02/21/2024 Radiography of hip XR HIP WITH P NICOLAS RIGHT Imaging Routine Right hip pain 03/01/2019 2:59 PM EDT [employer] SCREEN: MRSA ONLY, N VIVI (ISOLATION SCREEN) SCREEN: MRSA ONLY, NARES (ISOLATION SCREEN) Routine Pre-op exam Ordered: 10/23/2018 [facility] Work Phone: Comment on above: Ordered: 10/23/2018 Standard ECG ECG Routine Pre- op exam 10/23/2018 8:53 AM [facility] Work Phone: TISSUE CULTURE TISSUE CULTURE R outine 11/21/2018 11:00 AM [facility] Work Phone: TYPE AND SCREEN - POSSIBLE TRANSFUSION TYPE AND SCREEN - POSSIBLE TRANSFUSION Routine Pre-op exam Ordered: 10/23/2018 [facility] Work Phone: Comment on above: Ordered: 10/23/2018 TYPE AND SCREEN - POSSIBLE TRANSFUSION TYPE AND SCREEN - POSSIBLE TRANSFUSION Blood Bank Today Preop testing 11/03/2023 9:50 AM EST [facility] [facility] URINALYSIS, MACRO URINALYSIS, MA OUTREACH ASSOCIATE Routine Pre-op exam Ordered: 10/23/2018 [facility] Work Phone: Comment on above: Ordered: 10/23/2018 X-ray of left knee [facility] Work Phone: End: 03-01-2019 X-ray of left knee XR KNEE LEFT 2 VIEWS Imaging Routine History of total knee arthroplasty, left 1 Occurrences starting 03/01/2019 until 03/01/2019 [employer] Comment on above: 1 Occurrences starti ng 03/01/2019 until 03/01/2019 XR Knee - left 2 Views XR KNEE L EFT 2 VIEWS Imaging Routine Left knee pain, unspecified chronicity 03/18/2023 11:12 AM EDT [employer] XR Knee - left 2 Views XR KNEE L EFT 1-2 VIEWS Imaging Routine Hx of total knee arthroplasty, left 12/22/2023 1:17 PM EST [employer] XR Knee - left 2 Views XR KNEE L EFT 1-2 VIEWS Imaging Routine Hx of total knee arthroplasty, left 02/23/2024 11:01 AM EDT [employer] XR Knee - left 2 Views XR KNEE L EFT 1-2 VIEWS Imaging Routine Pain in both knees, unspecified chronicity 03/22/2024 3:36 PM EDT [employer] Work Phone: XR Knee - left 2 Views XR KNEE L EFT 1-2 VIEWS Imaging Routine Pain in both knees, unspecified chronicity 04/19/2024 10:07 AM EDT [employer] XR Knee - left 2 Views XR KNEE L EFT 1-2 VIEWS Imaging Routine Pain in both knees, unspecified chronicity 05/31/2024 9:37 AM EDT [employer] XR Knee - left 3 Views XR KNEE L EFT 3 VIEWS Imaging Routine Hx of total knee arthroplasty, left 09/01/2023 12:48 PM [employer] Work Phone: XR Knee - right 2 Views XR KNEE RIGHT 2 VIEWS Imaging Routine Right knee pain, unspecified chronicity 03/18/2023 11:12 AM [employer] End: 01-12-2024 XR Knee - right 2 Views [employer] Work Phone: Comment on above: 1 Occurrences starti ng 01/12/2024 until 01/12/2024 End: 02-23-2024 XR Knee - right 2 Views [facility] Comment on above: 1 Occurrences starti ng 02/23/2024 until 02/23/2024 XR Knee - right 2 Views XR KNEE RIGHT 1-2 VIEWS Imaging Routine Pain in both knees, unspecified chronicity 03/22/2024 3:36 PM EDT [employer] XR Knee - right 2 Views XR KNEE RIGHT 1-2 VIEWS Imaging Routine Pain in both knees, unspecified chronicity 04/19/2024 10:07 AM [employer] Work Phone: XR Knee - right 2 Views XR KNEE RIGHT 1-2 VIEWS Imaging Routine Pain in both knees, unspecified chronicity 05/31/2024 9:37 AM EDT [employer] XR Knee - right 3 Views XR KNEE RIGHT 3 VIEWS Imaging Routine Hx of total knee arthroplasty, right 05/19/2023 2:33 PM EDT [facility] Work Phone: XR Knee - right 3 Views XR KNEE RIGHT 3 VIEWS Imaging Routine Hx of total knee arthroplasty, right 09/01/2023 12:48 PM EDT [employer] [facility] XR Knee - right 3 Views XR KNEE RIGHT 3 VIEWS Imaging Routine Right knee pain, unspecified chronicity Ordered: 01/09/2024 [facility] Comment on above: Ordered: 01/09/2024 Immunizations Immunization Date Immunization Notes Care Provider [facility] 08-25-2023 influenza virus vaccine, unspecified formulation New Mcclure MD Work Phone: [facility] 08-23-2022 influenza virus vaccine, unspecified formulation Rajinder Green APRN-UNCLAIMED 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 Work Phone: [facility] 09-11-2018 pneumococcal conjugate vaccine, 13 valent Elie Harper DPM Work Phone: [facility] 08-18-2015 influenza virus vaccine, unspecified formulation Richard Macdonald [facility] Work Phone: Payers Date Payer Category Payer Self-pay [id number] 2018 Unknown [id number] 2017 Medicare MEDICARE MEDICAR E A AND B xxxxxxxxxxx 2017-Present [place], [place] xxxxxxxxxxx [id number] 2017 Medicare MEDICARE MEDICAR E A AND B [id number] 2017-Present [place], [place] [id number] .[id number] 2017 Medicare [id number] .[id number] 2017 Unknown ANTHEM ANTHEM TR ADITIONAL xxxxxxxxxxxx 2017-Present xxxxxxxxxxxx [id number] .[id number] 2017 Unknown ANTHEM ANTHEM TR ADITIONAL [id number] 2017-Present [id number] .7.3.737488.315 2017 Medicare [id number] 2.16.840.1.148311.19 1959 Blue Cross Blue Shield [id number] 2.16.840.1.208593.19 1953 Unknown [id number] 2.16.840.1.385087.3.579.2 .593 1953 Unknown [id number] 2.16.840.1.326775.3.579.2 .593 1953 Unknown [id number] 2.16.840.1.924133.3.579.2 .593 1953 Unknown [id number] 2.16.840.1.866570.3.579.2 .593 1953 Unknown [id number] 2.16.840.1.282250.3.579.2 .593 1953 Unknown [id number] 2.16.840.1.144101.3.579.2 .593 1953 Unknown [id number] 2.16.840.1.446042.3.579.2 .593 1953 Unknown [id number] 2.16.840.1.976956.3.579.2 .593 1953 Unknown [id number] 2.16.840.1.343482.3.579.2 .983 1953 Unknown [id number] 2.16.840.1.680783.3.579.2 .983 1953 Unknown [id number] 2.16.840.1.406493.3.579.2 .1953 Unknown [id number] 2.16.840.1.136551.3.579.2 .98 1953 Unknown [id number] 2.16.840.1.609078.3.579.2 .1953 Unknown [id number] 2.16.840.1.092692.3.579.2 .1953 Unknown [id number] 2.16.840.1.571618.3.579.2 .1953 Unknown [id number] 2.16.840.1.699089.3.579.2 .1953 Unknown [id number] 2.16.840.1.113307.3.579.2 .98 1953 Unknown [id number] 2.16.840.1.456615.3.579.2 .1953 Unknown [id number] 2.16.840.1.546626.3.579.2 .1953 Unknown [id number] 2.16.840.1.208402.3.579.2 .1953 Unknown [id number] 2.16.840.1.879740.3.579.2 .98 1953 Unknown [id number] 2.16.840.1.037300.3.579.2 .1953 Unknown [id number] 2.16.840.1.900017.3.579.2 .98 1953 Unknown [id number] 2.16.840.1.505142.3.579.2 .1953 Unknown [id number] 2.16.840.1.767154.3.579.2 .1259 1953 Unknown [id number] 2.16.840.1.841718.3.579.2 .1258 1953 Unknown [id number] 2.16.840.1.317822.3.579.2 .1258 1953 Unknown [id number] 2.16.840.1.405108.3.579.2 .1258 1953 Unknown [id number] 2.16.840.1.185846.3.579.2 .1258 1953 Unknown [id number] 2.16.840.1.445331.3.579.2 .1258 1953 Unknown [id number] 2.16.840.1.691062.3.579.2 .1258 1953 Unknown [id number] 2.16.840.1.824259.3.579.2 .1258 1953 Unknown [id number] 2.16.840.1.012821.3.579.2 .1259 Private Health Insurance [id number] Unknown [facility] [id number] Unknown [id number] 2.16.840.1.749412.3.579.2 .531 Social History Date Type Detail Facility Start: 10-23-2018 End: 07-13-2023 Tobacco smoking status ARIS Never smoker [facility] [facility] Start: 1955 Sex Assigned At Not on file [facility] Work Phone: Start: 11-21-2019 End: 05-31-2024 Alcohol intake Current non-drinker of alcohol (finding) [employer] Start: 11-19-2020 End: 07-13-2023 Tobacco use and exposure Never used [facility] Start: 05-19-2023 End: 08-16-2024 Sex Assigned At [facility] [facility] Start: 05-19-2023 End: 08-16-2024 History of Social function [facility] Start: 03-30-2023 Gender identity Identifies as female gender (finding) [facility] Start: 04-16-2023 End: 04-26-2023 Exposure to SARS-CoV-2 (event) Not sure [facility] Start: 1955 Sex Assigned At Female [facility] Has the electric, [employer], [employer], or water company threatened to shut off services in your home in past 12Mo No [facility] (I/We) worried christie er (my/our) food would run out before (I/we) got money to buy more. Never true [facility] [facility] In the past 12 month s, has lack of transportation kept you from medical appointments or from getting medications? No [facility] Start: 08-02-2024 End: 08-16-2024 Alcoholic beverage intake [facility] Start: 04-24-2024 Alcohol Comment Caffeine: Current some days [facility] Start: 03-30-2023 Sexual orientation Heterosexual (finding) [facility] Medical Equipment Procedure Code Equipment Code Equipment Origin al Text Equipment Identifier Dates Prolite Mesh 25. 4 Cm X 35.5cm Start: 11-21-2018 Palacos R 1x40 S nacho - [id number] Start: 11-21-2018 Prolite Mesh 25. 4 Cm X 35.5cm Start: 11-21-2018 Palacos R 1x40 S nacho - [id number] Start: 11-21-2018 Prolite Mesh 25. 4 Cm X 35.5cm Start: 11-21-2018 Palacos R 1x40 S nacho - [id number] Start: 11-21-2018 Prolite Mesh 25. 4 Cm X 35.5cm Start: 11-21-2018 Palacos R 1x40 S nacho - [id number] Start: 11-21-2018 Prolite Mesh 25. 4 Cm X 35.5cm Start: 11-21-2018 Prolite Mesh 25. 4 Cm X 35.5cm Start: 11-21-2018 Palacos R 1x40 S nacho - [id number] Start: 11-21-2018 Palacos R 1x40 S nacho - [id number] Start: 11-21-2018 Prolite Mesh 25. 4 Cm X 35.5cm Start: 11-21-2018 Prolite Mesh 25. 4 Cm X 35.5cm Start: 11-21-2018 Palacos R 1x40 S nacho - [id number] Start: 11-21-2018 Palacos R 1x40 S nacho - [id number] Start: 11-21-2018 Prolite Mesh 25. 4 Cm X 35.5cm Start: 11-21-2018 Prolite Mesh 25. 4 Cm X 35.5cm Start: 11-21-2018 Palacos R 1x40 S nacho - [id number] Start: 11-21-2018 Palacos R 1x40 S nacho - [id number] Start: 11-21-2018 Prolite Mesh 25. 4 Cm X 35.5cm Start: 11-21-2018 Prolite Mesh 25. 4 Cm X 35.5cm Start: 11-21-2018 [facility]acos R 1x40 S nacho - [id number] Start: 11-21-2018 Palacos R 1x40 S nacho - [id number] Start: 11-21-2018 Prolite Mesh 25. 4 Cm X 35.5cm Start: 11-21-2018 Prolite Mesh 25. 4 Cm X 35.5cm Start: 11-21-2018 Palacos R 1x40 S nacho - [id number] Start: 11-21-2018 Palacos R 1x40 S nacho - [id number] Start: 11-21-2018 Prolite Mesh 25. 4 Cm X 35.5cm Start: 11-21-2018 Prolite Mesh 25. 4 Cm X 35.5cm Start: 11-21-2018 Palacos R 1x40 S nacho - [id number] Start: 11-21-2018 Palacos R 1x40 S nacho - [id number] Start: 11-21-2018 Prolite Mesh 25. 4 Cm X 35.5cm Start: 11-21-2018 Prolite Mesh 25. 4 Cm X 35.5cm Start: 11-21-2018 Palacos R 1x40 S nacho - [id number] Start: 11-21-2018 Palacos R 1x40 S nacho - [id number] Start: 11-21-2018 Prolite Mesh 25. 4 Cm X 35.5cm [id number] Start: 11-21-2018 Palacos R 1x40 S nacho - [id number] Start: 11-21-2018 Prolite Mesh 25. 4 Cm X 35.5cm Start: 11-21-2018 Prolite Mesh 25. 4 Cm X 35.5cm Start: 11-21-2018 Palacos R 1x40 S nacho - [id number] Start: 11-21-2018 Palacos R 1x40 S nacho - [id number] Start: 11-21-2018 Prolite Mesh 25. 4 Cm X 35.5cm Start: 11-21-2018 Palacos R 1x40 S nacho - [id number] Start: 11-21-2018 Prolite Mesh 25. 4 Cm X 35.5cm Start: 11-21-2018 Prolite Mesh 25. 4 Cm X 35.5cm Start: 11-21-2018 Palacos R 1x40 S nacho - [id number] Start: 11-21-2018 Palacos R 1x40 S nacho - [id number] Start: 11-21-2018 Attune Tibial In sert Fixed [...] Palacos R+G 1x40 Single With Gentamicin - [id number] Start: 11-29-2023 Palacos R 1 X 40 Us - [id number] Start: 04-26-2023 Attune Knee Syst em Revision Tibial Base Fixed Bearing [id number] Start: 04-26-2023 Attune Femoral Posterior Stabilized [id number] Start: 04-26-2023 Attune Patella Medialized Dome [id number] Start: 04-26-2023 [place] Cancell ous Bone Screw [id number] Start: 04-26-2023 Attune Knee Syst em Revision Pressfit Stem [id number] Start: 11-29-2023 Palacos R & G Scott ne Cement High-Viscosity With Gentamicin - [id number] Start: 11-29-2023 Attune Knee Syst em [...] discussion of possible surgical intervention by her airline security representative who has since retired. She states diminished [...] Fibromyalgia Hemifacial spasm History of transfusion Hypertension ([facility]) Muscle spasm Osteopenia Peripheral neuropathy Polyneuropathy PVD (peripheral vascular disease) ([facility]) Radiculopathy, lumbosacral region Small fiber neuropathy Spinal stenosis excluding cervical region lumbar region, without neurogenic claudication Spondylolisthesis Trigeminal neuralgia ([facility]) Medications: Current Outpatient Medications: acetaminophen (Tylenol 8 [...] mouth in the morning., Disp: , Rfl: Vboyzgdokoi-Gdzofufbz-Uci C-Mn (Glucosamine 1500 Complex) capsule, as directed [...] Insecurity: No Food Insecurity (11/29/2023) [facility] from [facility], [facility] Hunger Vital Sign Worried About Running Out of Food in the Last Year: Never true Ran Out of Food in the Last Year: Never true Transportation Needs: No Transportation Needs (11/29/2023) Received from [facility], [facility] PRAPARE - Transportation Lack of Transportation (Medical): No Lack of Transportation (Non-Medical): No Physical Activity: Not on file Stress: Not on file Social Connections: Not on file Intimate Partner Violence: Not on file Housing Stability: Low Risk (11/29/2023) Received from [facility], [facility] Housing Stability Vital Sign Unable to Pay [...] Elie Harper DPM documented in this encounter [facility] 05-31-2024 History of Presen t illness [...] 05/31/2024 9:39 AM Patient: Danyelle Haskins MR#: [id number] : 1955 Age: 68 y.o. Referring Physician: [...] CATARACT W/ IMPLANT (ECCE IOL) Bilateral 2017 [facility] TREATMENT OPEN PATELLAR FX W/ INTERNAL [...] October 01, 2020 10:38am 10-01-2020 [facility] ([id number]) Docusate 100 MG capsule Take 1 capsule by mouth 2 times daily. 60 capsule 0 Doxazosin 4 MG tablet Take 1 tablet by mouth daily. Folic acid 1 MG tablet Take 1 tablet by mouth daily. Zpiecfzqokj-Nixxaqsup-Dto C-Mn (Glucosamine 1500 Complex) capsule Take by [...] times daily October 01, 2020 10:38am 10-01-2020 [facility] ([id number]), Disp: , Rfl: Docusate 100 MG capsule, Take 1 capsule by mouth 2 times daily., Disp: 60 capsule, Rfl: 0 Doxazosin 4 MG tablet, Take 1 tablet by mouth daily., Disp: , Rfl: Folic acid 1 MG tablet, Take 1 tablet by mouth daily., Disp: , Rfl: Miiykdwtpzl-Mbcxkfvag-Kuq C-Mn (Glucosamine 1500 Complex) capsule, Take by [...] HPI: Danyelle is an established patient of [facility]. She is here today for a 6 [...] CATARACT W/ IMPLANT (ECCE IOL) Bilateral 2017 [facility] TREATMENT OPEN PATELLAR FX W/ INTERNAL [...] times daily October 01, 2020 10:38am 10-01-2020 [facility] ([id number]), Disp: , Rfl: Docusate 100 MG capsule, Take 1 capsule by mouth 2 times daily., Disp: 60 capsule, Rfl: 0 Doxazosin 4 MG tablet, Take 1 tablet by mouth daily., Disp: , Rfl: Folic acid 1 MG tablet, Take 1 tablet by mouth daily., Disp: , Rfl: Kduiaegidmn-Fktccwfyr-Clq C-Mn (Glucosamine 1500 Complex) capsule, Take by [...] Weakness Trimethoprim Weakness documented in this encounter [facility] 04-19-2024 History of Presen t illness Narrative Ortho Nurse - Established Patient Intake Room#: 2 Pt is here for B/L knee. Pt is not in any pain. No falls, or injury's. Date: 04/19/2024 10:14 AM Patient: Danyelle Haskins MR#: [id number] : 1955 Age: 68 y.o. Referring Physician: [...] CATARACT W/ IMPLANT (ECCE IOL) Bilateral 2018 [facility] TREATMENT OPEN PATELLAR FX W/ INTERNAL [...] October 01, 2020 10:38am 10-01-2020 [facility] ([id number]) Docusate 100 MG capsule Take 1 capsule by mouth 2 times daily. 60 capsule 0 Doxazosin 4 MG tablet Take 1 tablet by mouth daily. Folic acid 1 MG tablet Take 1 tablet by mouth daily. Njstvwxtxgb-Dukpztrvu-Eem C-Mn (Glucosamine 1500 Complex) capsule Take by [...] times daily October 01, 2020 10:38am 10-01-2020 [facility] ([id number]), Disp: , Rfl: Docusate 100 MG capsule, Take 1 capsule by mouth 2 times daily., Disp: 60 capsule, Rfl: 0 Doxazosin 4 MG tablet, Take 1 tablet by mouth daily., Disp: , Rfl: Folic acid 1 MG tablet, Take 1 tablet by mouth daily., Disp: , Rfl: Ifgunjdwsfr-Ihcepeose-Caw C-Mn (Glucosamine 1500 Complex) capsule, Take by [...] HPI: Danyelle is an established patient of [facility]. She is here today for followup. She [...] CATARACT W/ IMPLANT (ECCE IOL) Bilateral 2018 [facility] TREATMENT OPEN PATELLAR FX W/ INTERNAL [...] October 01, 2020 10:38am 10-01-2020 [facility] ([id number]), Disp: , Rfl: Docusate 100 MG capsule, Take 1 capsule by mouth 2 times daily., Disp: 60 capsule, Rfl: 0 Doxazosin 4 MG tablet, Take 1 tablet by mouth daily., Disp: , Rfl: Folic acid 1 MG tablet, Take 1 tablet by mouth daily., Disp: , Rfl: Ekzntsxywde-Dzbvwiapy-Mon C-Mn (Glucosamine 1500 Complex) capsule, Take by [...] Weakness Trimethoprim Weakness documented in this encounter [facility] 03-22-2024 History of Presen t illness [...] 03/22/2024 3:49 PM Patient: Danyelle Haskins MR#: [id number] : 1955 Age: 68 y.o. Referring Physician: [...] CATARACT W/ IMPLANT (ECCE IOL) Bilateral 2018 [facility] TREATMENT OPEN PATELLAR FX W/ INTERNAL [...] times daily October 01, 2020 10:38am 10-01-2020 [facility] ([id number]) Docusate 100 MG capsule Take 1 capsule by mouth 2 times daily. 60 capsule 0 Doxazosin 4 MG tablet Take 1 tablet by mouth daily. Folic acid 1 MG tablet Take 1 tablet by mouth daily. Sgkmlimjtab-Oyhkbnmrd-Hhf C-Mn (Glucosamine 1500 Complex) capsule Take by [...] HPI: Danyelle is an established patient of [facility]. She is here today for followup. She [...] have reviewed the findings of the clinical support team member and agree with their assessment. Ortho Nurse [...] 03/22/2024 3:49 PM Patient: Danyelle Haskins MR#: [id number] : 1955 Age: 68 y.o. Referring Physician: [...] CATARACT W/ IMPLANT (ECCE IOL) Bilateral 2017 [facility] TREATMENT OPEN PATELLAR FX W/ INTERNAL [...] times daily October 01, 2020 10:38am 10-01-2020 [facility] ([id number]) Docusate 100 MG capsule Take 1 capsule by mouth 2 times daily. 60 capsule 0 Doxazosin 4 MG tablet Take 1 tablet by mouth daily. Folic acid 1 MG tablet Take 1 tablet by mouth daily. Rrxkwkdphdk-Igvzipxiv-Dcv C-Mn (Glucosamine 1500 Complex) capsule Take by [...] and levofloxacin. documented in this encounter [facility] 02-23-2024 History of Presen t illness Narrative Ortho Nurse - Established Patient Intake Room#: 4 Date: 02/23/2024 11:05 AM Patient: Danyelle Haskins MR#: [id number] : 1955 Age: 68 y.o. 4M L [...] CATARACT W/ IMPLANT (ECCE IOL) Bilateral 2018 [facility] TREATMENT OPEN PATELLAR FX W/ INTERNAL [...] times daily October 01, 2020 10:38am 10-01-2020 [facility] ([id number]) Docusate 100 MG capsule Take 1 capsule by mouth 2 times daily. 60 capsule 0 Doxazosin 4 MG tablet Take 1 tablet by mouth daily. Folic acid 1 MG tablet Take 1 tablet by mouth daily. Okhbstbdmbu-Hbnlddsrx-Zcs C-Mn (Glucosamine 1500 Complex) capsule Take by [...] October 01, 2020 10:38am 10-01-2020 [facility] ([id number]), Disp: , Rfl: Docusate 100 MG capsule, Take 1 capsule by mouth 2 times daily., Disp: 60 capsule, Rfl: 0 Doxazosin 4 MG tablet, Take 1 tablet by mouth daily., Disp: , Rfl: Folic acid 1 MG tablet, Take 1 tablet by mouth daily., Disp: , Rfl: Fjvzsdgmiml-Dpcxxxfot-Nbu C-Mn (Glucosamine 1500 Complex) capsule, Take by [...] SUBJECTIVE: Danyelle is an established patient of [facility]. She is here today for followup. She [...] up in 4 weeks, sooner as needed. ([id number]) I have reviewed the findings of the clinical support team member and agree with their assessment. Rajinder Green APRN-MARTY Ortho Nurse - Established Patient Intake Room#: 4 Date: 02/23/2024 11:05 AM Patient: Danyelle Haskins MR#: [id number] : 1955 Age: 68 y.o. 4M L [...] CATARACT W/ IMPLANT (ECCE IOL) Bilateral 2018 [facility] TREATMENT OPEN PATELLAR FX W/ INTERNAL [...] times daily October 01, 2020 10:38am 10-01-2020 [facility] ([id number]) Docusate 100 MG capsule Take 1 capsule by mouth 2 times daily. 60 capsule 0 Doxazosin 4 MG tablet Take 1 tablet by mouth daily. Folic acid 1 MG tablet Take 1 tablet by mouth daily. Huholexohqi-Wvidkfamq-Wzf C-Mn (Glucosamine 1500 Complex) capsule Take by [...] October 01, 2020 10:38am 10-01-2020 [facility] ([id number]), Disp: , Rfl: Docusate 100 MG capsule, Take 1 capsule by mouth 2 times daily., Disp: 60 capsule, Rfl: 0 Doxazosin 4 MG tablet, Take 1 tablet by mouth daily., Disp: , Rfl: Folic acid 1 MG tablet, Take 1 tablet by mouth daily., Disp: , Rfl: Jwspmkxeqab-Axxryztjj-Srk C-Mn (Glucosamine 1500 Complex) capsule, Take by [...] and levofloxacin. documented in this encounter [facility] 01-12-2024 History of Presen t illness Narrative Ortho Nurse - Established Patient Intake Room#: 1 ----follow-up from call from skilled nursing on 12.30.23 that she fractured her patella. [...] 01/12/2024 1:03 PM Patient: Danyelle Haskins MR#: [id number] : 1955 Age: 68 y.o. Referring Physician: [...] CATARACT W/ IMPLANT (ECCE IOL) Bilateral 2018 [facility] TREATMENT OPEN PATELLAR FX W/ INTERNAL [...] times daily October 01, 2020 10:38am 10-01-2020 [facility] ([id number]) Docusate 100 MG capsule Take 1 capsule by mouth 2 times daily. 60 capsule 0 Doxazosin 4 MG tablet Take 1 tablet by mouth daily. Folic acid 1 MG tablet Take 1 tablet by mouth daily. Kjiidrslady-Xpjcvacrh-Kgh C-Mn (Glucosamine 1500 Complex) capsule Take by [...] 04/26/23. My office received a call from [facility] on 12/30/23 stating patient suffered [...] have reviewed the findings of the clinical support team member and agree with their assessment. Ortho Nurse - Established Patient Intake Room#: 1 ----follow-up from call from skilled nursing on 12.30.23 that she fractured her patella. [...] 01/12/2024 1:03 PM Patient: Danyelle Haskins MR#: [id number] : 1955 Age: 68 y.o. Referring Physician: [...] CATARACT W/ IMPLANT (ECCE IOL) Bilateral 2018 [facility] TREATMENT OPEN PATELLAR FX W/ INTERNAL FIXATION OR PATELLECTOMY Left 07/18/2017 Laterality: Left; Surgeon: New Mcclure MD; Location: [facility] OR PATELLECTOMY/HEMIPATELLECTOMY Left 07/18/2017 Laterality: Left; Surgeon: New Mclcure MD; Location: [facility] EXCISION SKIN [...] October 01, 2020 10:38am 10-01-2020 [facility] ([id number]) Docusate 100 MG capsule Take 1 capsule by mouth 2 times daily. 60 capsule 0 Doxazosin 4 MG tablet Take 1 tablet by mouth daily. Folic acid 1 MG tablet Take 1 tablet by mouth daily. Wrlstupxoma-Vjbfgeofb-Cad C-Mn (Glucosamine 1500 Complex) capsule Take by [...] and levofloxacin. documented in this encounter [facility] 11-03-2023 History of Presen t illness [...] freezing cold no MEDICAL CLEARANCE, CARDIOLOGY CLEARANCE [facility] 11/11 3952 DIFFICULT IV PLACEMENT Butterfly use in the [...] TRANSFUSION/REACTION Yes, no adverse reaction. CULTURAL OR MORMONISM BELIEFS THAT WILL AFFECT CARE no DIETARY RESTRICTIONS no CONCERNS FOR PERSONAL SAFETY no Have you been diagnosed with a concussion in the past 6 months? no Have you tested positive for COVID 19? (if pt does breathing is not back to baseline please order CXR) No Have you had your COVID vaccination? no ADVANCE DIRECTIVES Yes, on file with [employer] IF PATIENT HAS NOT BEEN DIAGNOSED WITH [...] 11/03/2023 1010 blood pressure elevated today at [facility]. Reports have white coat syndrome. It's never high like that when I check it at home. Denies headache or complaints. Reports that she will check the BP on arrival home. Encouraged to discuss with pcp if remains elevated, voiced understanding. Discharged ambulatory, gait steady with walker. documented in this encounter [facility] 11-03-2023 Instructions Everton Ball RN - 11/03/2023 10:[address] Mcclure's office will call you for your arrival time, 1-2 business days before your scheduled surgery. Please review your surgery checklist and bring your guide or booklet the day of surgery. Pre-Admission Testing Dept. [phone] Call if you have any changes in [...] the hospital. DIRECTIONS: Park in the front [facility] facing [address] [facility] [address]. Enter through the front entrance and [facility] Thank you for allowing us [...] Yellow - take the day of surgery Buena - hold according to the doctor's instructions [...] October 01, 2020 10:38am 10-01-2020 [facility] ([id number]) STOP 7 DAYS BEFORE YOUR SURGERY LAST DOSE: DATE TIME __ Doxazosin 4 MG tablet 4 mg, Oral, DAILY STOP TAKING 24 hours BEFORE YOUR SURGERY Last Dose: Date Time Folic acid 1 MG tablet 1,000 mcg, Oral, DAILY CONTINUE, but DO NOT take the morning of surgery. Last Dose: Date Time Ikzmsejvzlt-Wufonsgvd-Jsc C-Mn (Glucosamine 1500 Complex) capsule Oral, DAILY [...] Date Time documented in this encounter [facility] 11-03-2023 Miscellaneous Notes Addended by: EVERTON BALL on: 10/27/2023 10:19 AM Modules accepted: Orders Addended by: EVERTON BALL on: 11/01/2023 01:36 PM Modules accepted: Orders documented in this encounter [facility] 11-03-2023 Note Addended by: EVERTON QUIROGA on: 10/27/2023 10:19 AM Modules accepted: Orders [facility] 11-03-2023 Note Addended by: EVERTON QUIROGA on: 11/01/2023 01:36 PM Modules accepted: Orders [facility] 09-01-2023 History of Presen t illness Narrative Ortho Nurse - Established Patient Intake Room#: 1 ----- 4 month f\u R TKR and is doing great. Also concerned about left knee and that it keeps slipping out of place. No pain with the knee just instability and would like it looked at again. Date: 09/01/2023 1:06 PM Patient: Danyelle Haskins MR#: [id number] : 1955 Age: 68 y.o. Referring Physician: [...] CATARACT W/ IMPLANT (ECCE IOL) Bilateral 2018 [facility] TREATMENT OPEN PATELLAR FX W/ INTERNAL [...] October 01, 2020 10:38am 10-01-2020 [facility] ([id number]) Doxazosin 4 MG tablet Take 1 tablet [...] to further discuss surgical interventions for optimal prison management. 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 We have discussed in great detail [...] screening, scheduling an appointment for [facility] and the potential surgical date, and reviewing and signing the consent forms. I have reviewed the findings of the clinical support team member and agree with their assessment. Ortho Nurse - Established Patient Intake Room#: 1 ----- 4 month f\u R TKR and is doing great. Also concerned about left knee and that it keeps slipping out of place. No pain with the knee just instability and would like it looked at again. Date: 09/01/2023 1:06 PM Patient: Danyelle Haskins MR#: [id number] : 1955 Age: 68 y.o. Referring Physician: [...] KNEE TOTAL Right 04/26/2023 Laterality: Right; Surgeon: eNw Mcclure MD; Location: [facility] REVISION ARTHROPLASTY KNEE Left 11/21/2018 Laterality: Left; Surgeon: New Mcclure MD; Location: [facility] OR EXTRACTION EXTRACAPSULAR CATARACT W/ IMPLANT (ECCE IOL) Bilateral 2017 [facility] TREATMENT OPEN PATELLAR FX W/ INTERNAL [...] October 01, 2020 10:38am 10-01-2020 [facility] ([id number]) Doxazosin 4 MG tablet Take 1 tablet [...] and levofloxacin. documented in this encounter [facility] 05-19-2023 History of Presen t illness Narrative Ortho Nurse - Established Patient Intake Room#: 5 Date: 05/19/2023 2:43 PM Patient: Danyelle Haskins MR#: [id number] : 1955 Age: 67 y.o. 3 wks [...] CATARACT W/ IMPLANT (ECCE IOL) Bilateral 2017 [facility] TREATMENT OPEN PATELLAR FX W/ INTERNAL [...] times daily October 01, 2020 10:38am 10-01-2020 [facility] ([id number]) Docusate 100 MG capsule Take 1 capsule [...] times daily October 01, 2020 10:38am 10-01-2020 [facility] ([id number]), Disp: , Rfl: Docusate 100 MG capsule, [...] mesh. All pertinent portions of the clinical support team member documentation was reviewed and agree. EFREN Logan Ortho Nurse - Established Patient Intake Room#: 5 Date: 05/19/2023 2:43 PM Patient: Danyelle Haskins MR#: [id number] : 1955 Age: 67 y.o. 3 wks [...] CATARACT W/ IMPLANT (ECCE IOL) Bilateral 2018 [facility] TREATMENT OPEN PATELLAR FX W/ INTERNAL [...] October 01, 2020 10:38am 10-01-2020 [facility] ([id number]) Docusate 100 MG capsule Take 1 capsule [...] October 01, 2020 10:38am 10-01-2020 [facility] ([id number]), Disp: , Rfl: Docusate 100 MG capsule, [...] and levofloxacin. documented in this encounter [facility] 08-31-2021 Evaluation note Encounter Date Diagnosis [...] management and focal injections would be appropriate. [employer] Other 05-10-2021 Note [id number]:[id number] 03-12-2021 NoteCystoscopy with Urethral Dilation ? Voiding [...] if you have a fever over [address] [facility] History of Present illness Narrative* New Mcclure [...] have reviewed the findings of the clinical support team member and agree with their assessment. Ortho Nurse Established Patient Intake Room#: 3 F/U from PT, seen 11-19-20, left knee TKA 11-21-18 with extensor mechanism repair, states her pain is a 2 and she is doing much better Date: 03/11/2021 1:59 PM Patient: Danyelle Haskins MR#: [id number] : 1955 Age: 65 y.o. Referring Physician: [...] CATARACT W/ IMPLANT (ECCE IOL) Bilateral 2017 [facility] TREATMENT OPEN PATELLAR FX W/ INTERNAL [...] mouth 3 times daily as needed. Biotin 51266 MCG Tab take 2 tablets by mouth 2 times daily.. Calcium Carb-Cholecalciferol (CALCIUM 600 + D) 600-200 MG-UNIT Tab tablet Take 2.5 tablets by mouthDaily (with lunch). Diclofenac Sodium 1 % Gel gel Diclofenac Diclofenac Sodium Active 4 GM Topical Four times daily October 01, 2020 10:38am 10-01-2020 [facility] ([id number]) ferrous sulfate 325 (65 Fe) MG Tab [...] as needed. , Disp: , Rfl: Biotin 07724 MCG Tab, take 2 tablets by mouth 2 times daily.. , Disp: , Rfl: Calcium Carb-Cholecalciferol (CALCIUM 600 + D) 600-200 MG-UNIT Tab tablet, Take 2.5 tablets by mouth Daily (with lunch). , Disp: , Rfl: Diclofenac Sodium 1 % Gel gel, Diclofenac Diclofenac Sodium Active 4 GM Topical Four times daily October 01, 2020 10:38am 10-01-2020 [facility] ([id number]), Disp: , Rfl: ferrous sulfate 325 (65 [...] 03/11/2021 1:59 PM Patient: Danyelle Haskins MR#: [id number] : 1955 Age: 65 y.o. Referring Physician: [...] CATARACT W/ IMPLANT (ECCE IOL) Bilateral 2017 [facility] TREATMENT OPEN PATELLAR FX W/ INTERNAL [...] mouth 3 times daily as needed. Biotin 51815 MCG Tab take 2 tablets by mouth 2 times daily.. Calcium Carb-Cholecalciferol (CALCIUM 600 + D) 600-200 MG-UNIT Tab tablet Take 2.5 tablets by mouthDaily (with lunch). Diclofenac Sodium 1 % Gel gel Diclofenac Diclofenac Sodium Active 4 GM Topical Four times daily October 01, 2020 10:38am 10-01-2020 [facility] ([id number]) ferrous sulfate 325 (65 Fe) MG Tab [...] as needed. , Disp: , Rfl: Biotin 72739 MCG Tab, take 2 tablets by mouth 2 times daily.. , Disp: , Rfl: Calcium Carb-Cholecalciferol (CALCIUM 600 + D) 600-200 MG-UNIT Tab tablet, Take 2.5 tablets by mouth Daily (with lunch). , Disp: , Rfl: Diclofenac Sodium 1 % Gel gel, Diclofenac Diclofenac Sodium Active 4 GM Topical Four times daily October 01, 2020 10:38am 10-01-2020 [facility] ([id number]), Disp: , Rfl: ferrous sulfate 325 (65 [...] and bactrim [sulfamethoxazole-trimethoprim]. [facility] Left knee pain, unspecified chronicity- Primary Right knee pain, unspecified chronicity [facility] Diagnosis Hx of total knee arthroplasty, right- Primary [facility] noteNo assessment information [facility] Work Phone: Evaluation note* Diagnosis Hx of total knee arthroplasty, right- Primary Hx of total knee arthroplasty, left [facility] Preop testing- Primary Preoperative examination, unspecified Abnormal finding of blood chemistry, unspecified Abnormal coagulation profile Failed total left knee replacement, initial encounter [facility] Diagnosis Pain in right knee Pain in joint, lower leg [facility] Diagnosis Right knee pain, unspecified chronicity- Primary [facility] Diagnosis Hx of total knee arthroplasty, left- Primary [facility] Diagnosis Pain in both knees, unspecified chronicity- [facility] in both knees, unspecified chronicity- [facility] Pain in both knees, unspecified chronicity- [facility] Diagnosis Abscess of toe, right- [...] Abdominal Ablation Hospitalization History see surgical hx SWITCH Materials Other reason for referral (narrative)* Consultation (Routine) - Patient to Arrange Specialty Diagnoses / Procedures Referred By Contcatie t Referred To Contact Physical Therapy Diagnoses Pain in both knees, unspecified chronicity New Mcclure MD [address] [place] [address] Referral ID Status Reason Start Date Expiration Date V isits Requested Visits Authorized [id number] Patient to Arrange 05/31/2024 06/25/2025 1 1 Scheduling Instructions . 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 Advance Directives/Living Will 11/21/2018 8:22 AM Advance Directives/Living Will 11/21/2018 8:26 AM Latest Code Status on File Code Status Date Activated Date Inactivated Comments Full Code 11/21/2018 2:46 PM Full Code 07/18/2017 4:04 PM 07/21/2017 7:25 PM Documents on File Type Date Recorded 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 Advance Directives/Living Will 11/21/2018 8:22 [...] Pre-op exam Procedures ECG New Mcclure MD [address] [place] [address] Status Reason Specialty Diagnoses / Procedures Referred By Contact Referred To Contact New Request Procedures ACTIVITY TOLERATED Rajinder Green, LA[employer] [address] [place] [address] Status Reason Specialty Diagnoses / Procedures Referre d By Contact Referred To Contact Rajinder Green APRN-CNP [address] [place], [place] [id number] Status Reason Specialty Diagnoses / Procedures Referred By Contact Referred To Contact New Request Diagnoses Hx of total knee arthroplasty, left Procedures XR KNEE LEFT 2 VIEWS XR KNEE LEFT 3 VIEWS Rajinder Green APRN-CNP [address] [place], [place] [id number] Status Reason Specialty Diagnoses / Procedures Referred By Contact Referred To Contact New Request Physical Therapy Diagnoses History of total knee arthroplasty, left Right hip pain New Mcclure MD [address] [place], [place] [id number] Scheduling Instructions . Status Reason Specialty Diagnoses / Procedures Referred By Contact Referred To Contact Schedule Outgoing - Transfer of Care Physical Therapy Diagnoses History of total knee arthroplasty, left New Mcclure MD [address] [place], [place] [id number] Status Reason Specialty Diagnoses / Procedures Referred By Contact Referred To Contact New Request Diagnoses Right hip pain Procedures XR HIP WITH PELVIS RIGHT New Mcclure MD [address] [place], [place] [id number] Status Reason Specialty Diagnoses / Procedures Referred By Contact Referred To Contact New Request Sports Ortho and Primary Care Sports Diagnoses Right hip pain New Mcclure MD [address] [place], [place] [address] Status Reason Specialty Diagnoses / Procedures Referred By Contact Referred To Contact New Request Diagnoses Right knee pain, unspecified chronicity Procedures LARGE JOINT INJECTION: R knee New Mcclure MD [address] [place], [place] [address] Status Reason Specialty Diagnoses / Procedures Referred By Contact Referred To Contact New Request Diagnoses Left knee pain, unspecified chronicity Procedures XR KNEE LEFT 2 VIEWS XR KNEE LEFT 3 VIEWS New Mcclure MD [address] [place], [place] [address] Status Reason Specialty Diagnoses / Procedures Referred By Contact Referred To Contact Pending Review Diagnoses History of total knee arthroplasty, left Procedures XR KNEE LEFT 3 VIEWS New Mcclure MD [address] [place], [place] [address] Status Reason Specialty Diagnoses / Procedures Referred By Contact Referred To Contact Patient to Arrange Physical Therapy Diagnoses Pain in prosthetic joint, initial encounter New Mcclure MD [address] [place], [place] [phone] Status Reason Specialty Diagnoses / Procedures Referred By Contact Referred To Contact New Request Diagnoses Hx of total knee arthroplasty, left Procedures XR KNEE LEFT 3 VIEWS New Mcclure MD [address] [place], [place] [address] Status Reason Specialty Diagnoses / Procedures Referred By Contact Referred To Contact Patient to Arrange Physical Therapy Diagnoses History of total knee arthroplasty, left New Mcclure MD [address] [place], [place] [address] Specialty Diagnoses / Procedures Referred By Contac t Referred To Contact Diagnoses Hx of total knee arthroplasty, right Procedures XR KNEE RIGHT 3 VIEWS Rajinder Green, [employer]-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 [address] [place], [place] [address] Referral ID Status Reason Start Date Expiration Date V isits Requested Visits Authorized [id number] New Request 05/11/2023 06/04/2024 1 1 Specialty Diagnoses / Procedures Referred By Contac t Referred To Contact Diagnoses Hx of total knee arthroplasty, right Procedures XR BONE LENGTH STUDY New Mcclure MD [address] [place] [phone] Referral ID Status Reason Start Date Expiration Date V isits Requested Visits Authorized [id number] New Request 08/30/2023 09/23/2024 1 1 Specialty Diagnoses / Procedures Referred By Contac t Referred To Contact Diagnoses Hx of total knee arthroplasty, right Procedures XR KNEE RIGHT 3 VIEWS New Mcclure MD [address] [place] [phone] Referral ID Status Reason Start Date Expiration Date V isits Requested Visits Authorized [id number] New Request 08/30/2023 09/23/2024 1 1 Specialty Diagnoses / Procedures Referred By Contac t Referred To Contact Diagnoses Hx of total knee arthroplasty, left Procedures XR KNEE LEFT 3 VIEWS New Mcclure MD [address] [place] [phone] Referral ID Status Reason Start Date Expiration Date V isits Requested Visits Authorized [id number] New Request 08/30/2023 09/23/2024 1 1 Specialty Diagnoses / Procedures Referred By Contac t Referred To Contact Diagnoses Preop testing Procedures PREPARE TO TRANSFUSE RED BLOOD CELLS New Mcclure MD [address] [place] [phone] Referral ID Status Reason Start Date Expiration Date V isits Requested Visits Authorized [id number] New Request 11/01/2023 11/25/2024 1 1 Specialty Diagnoses / Procedures Referred By Contac t Referred To Contact Diagnoses Preop testing Procedures ECG New Mcclure MD [address] [place] [phone] Referral ID Status Reason Start Date Expiration Date V isits Requested Visits Authorized [id number] New Request 10/27/2023 11/20/2024 1 1 Specialty Diagnoses / Procedures Referred By Contac t Referred To Contact Diagnoses Right knee pain, unspecified chronicity Procedures XR KNEE RIGHT 3 VIEWS New Mcclure MD [address] [place] [phone] Referral ID Status Reason Start Date Expiration Date V isits Requested Visits Authorized [id number] New Request 01/09/2024 02/02/2025 1 1 Specialty Diagnoses / Procedures Referred By Contac t Referred To Contact Diagnoses Hx of total knee arthroplasty, left Procedures XR KNEE LEFT 1-2 VIEWS XR KNEE LEFT 3 VIEWS Rajinder Green, [employer] [address] [place] [phone] Referral ID Status Reason Start Date Expiration Date V isits Requested Visits Authorized [id number] New Request 02/21/2024 03/17/2025 1 1 Specialty Diagnoses / Procedures Referred By Turner devlin Referred To Contact Diagnoses Hx of total knee arthroplasty, left Procedures XR BONE LENGTH STUDY Rajinder Green, [employer]-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 Pre-Admission Testing Dept. [phone] Call if you have any changes in [...] of surgery LAST DOSE: DATE TIME Biotin 49009 MCG Tab take 2 tablets by mouth [...] LAST DOSE: DATE TIME Hydroxychloroquine Sulfate (HYDROXYCHLOROQUINE, [id number],) 200 MG Tab Take 200 mg by [...] Patient reports feeling ready to go to [facility] later today Cognitive Status Examination [...] reach Communication Patient to discharge to [facility] later today Transfer Skill: Sit To Stand, Rehab Eval [place] (Sit-Stand Transfers) supervision Physical Assist/Nonphysical Assist: Sit/Stand 1 person assist Weight-Bearing Restrictions: Sit/Stand toe touch weight-bearing Assistive Device For Transfer: Sit/Stand 2 wheeled walker Gait Skills, PT Eval Level of [place]: Gait stand-by assist Weight-Bearing Restrictions: Gait toe touch weight-bearing Assistive Device For Transfer: Gait 2 wheeled walker Gait Distance other (see comments) (60 ft) Gait Analysis, PT Eval Gait Pattern Used swing-to gait Stair Negotiation Level of [place]: Stair Negotiation unable to perform Clinical Impression [...] training. Maintain frequency yes * Maryam Zapata, [facility],PharmD - 11/24/2018 1:26 PM EST Apixaban (Eliquis) Patient Education / Transition of Care PATIENT: Danyelle Haskins Room/Bed: [facility] Apixaban (Eliquis) Education Patient was [...] should be reported to their physicianor health child care centre director as soon as possible. I also advised the patient to provide an updated medication list to all health health and social care teacher as certain medications can interact with apixaban. Patient verbally acknowledged an understanding of the information provided. Please contact pharmacyif there are any questions. Signed: Maryam Zapata [facility],PharmD, [facility] Phone: [phone] Date/Time: 11/24/2018 1:26 PM * Krystal Bravo, [...] UE exercises Therapist Information License # [id number] * Tanvi Hernandez, UNCLAIMED 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 - 11/23/2018 1:43 PM EST Formatting of this note may be different from the original. DAILY PROGRESS NOTE Date of Evaluation: 11/23/18 1:44 PM [facility] LOS: 2 days SUBJECTIVE: Patient seen and [...] knee S/p left TKA POD#2 PT OT health and social care teacher discharge planning DVT prophylaxis Eliquis PT OT [...] assessment and plan and agree with the UNCLAIMED 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 findings and plan of care as documented. I agree with their findings and plan with any exceptions or additions noted below. Doing well today. Principal Problem: Pain in left knee Active Problems: Obesity: body mass index of 30.0-34.9 Benign hypertension Rheumatoid arthritis GERD (gastroesophageal reflux disease) Synovial hernia * Demarcus Hutchison, TECHNOLOGY SOLUTIONS ARCHITECT - 11/23/2018 11:39 AM EST Formatting of [...] like knee brace had slid down leg. TECHNOLOGY SOLUTIONS ARCHITECT began with readjusting knee brace in proper [...] Transfer Skill: Sit To Stand, Rehab Eval [place] (Sit-Stand Transfers) contact guard Physical Assist/Nonphysical Assist: Sit/Stand 1 person assist Weight-Bearing Restrictions: Sit/Stand toe touch weight-bearing Assistive Device For Transfer: Sit/Stand 2 wheeled walker Gait Skills, PT Eval Level of [place]: Gait contact guard Weight-Bearing Restrictions: Gait toe [...] device on. Impression: status post TKA ext [facility] recon PLAN: 1. PT/OT 2. DVT prophylaxis 3. Discharge planning * Demarcus Hutchison, TECHNOLOGY SOLUTIONS ARCHITECT - 11/22/2018 4:07 PM EST Formatting of [...] Transfer Skill: Sit To Stand, Rehab Eval [place] (Sit-Stand Transfers) contact guard Physical Assist/Nonphysical Assist: Sit/Stand 1 person assist Weight-Bearing Restrictions: Sit/Stand toe touch weight-bearing (pt using NWB on L LE) Assistive Device For Transfer: Sit/Stand 2 wheeled walker Gait Skills, PT Eval Level of [place]: Gait contact guard Weight-Bearing Restrictions: Gait toe touch weight-bearing (Pt using NWB on L LE) Assistive Device For Transfer: Gait 2 wheeled walker Gait Distance (20ft, 20ft) Gait Analysis, PT Eval Gait Pattern Used swing-to gait Plan Plan for next visit Plan to continue with strengthening and transfers/gait Maintain frequency yes * Aurora Arroyo, SKIN TOGGLER - 11/22/2018 12:52 PM EST Call received from [facility] stating they can take patient anytime on Tuesday afternoon or after. * Demarcus Hutchison, TECHNOLOGY SOLUTIONS ARCHITECT - 11/22/2018 11:56 AM EST Formatting of [...] Transfer Skill: Sit To Stand, Rehab Eval [place] (Sit-Stand Transfers) contact guard Physical Assist/Nonphysical Assist: Sit/Stand 1 person assist Weight-Bearing Restrictions: Sit/Stand toe touch weight-bearing (NWB on L LE) Assistive Device For Transfer: Sit/Stand 2 wheeled walker Gait Skills, PT Eval Level of [place]: Gait contact guard Weight-Bearing Restrictions: Gait toe touch weight-bearing (pt using NWB on L LE) Assistive Device For Transfer: Gait 2 wheeled walker Gait Distance 25 feet Gait Analysis, PT Eval Gait Pattern Used swing-to gait Plan Plan for next visit Plan to continue with strengthening, transfers/gait, and practice car transfer Maintain frequency yes * Jacey Valdez, [employer]UR[employer]-UNCLAIMED 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 - 11/22/2018 10:52 AM EST Formatting of this note may be different from the original. DAILY PROGRESS NOTE Date of Evaluation: 11/22/18 10:53 AM [facility] LOS: 1 day SUBJECTIVE: Patient seen and [...] knee S/p left TKA POD#1 PT OT health and social care teacher discharge planning DVT prophylaxis Eliquis PT OT SS for dc planning GI/DVT prophylaxis with protonix and SCD and Eliquis Associated attestation - Brady Lozoya MD - 11/22/2018 4:50 PM EDMUND Haskins was personally seen and examined. I agree with the examination, assessment, and plan as described below by the WING SCORER with the following additions/exceptions: Feeling well today. [...] with post operative care. * Rajinder Green, [employer]-UNCLAIMED 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 - 11/22/2018 8:52 AM EST Formatting of [...] states that she is currently employed at [employer] in [place]. She stated that prior to the surgery she was completely independent and able to cook, clean and drive. Patient states that her goal upon discharge it to go to an extended care facility to get more therapy for her knee and regain her strength. Patient stated that she wanted to go to the [facility] as it is close to her home. Patient reviewed and signed the Area Nursing facility list for [facility]. CM to make referral. CM to follow. [...] 0 Equipment Available wheeled walker;shower chair;elevated toilet seat;tarring machine operator;sock-aid;long-handled shoe horn;hand held shower hose Cognitive Status Examination Orientation Status (Cognition) oriented x 4 Level of Consciousness alert Able to Follow Commands (Communication) WNL Personal Safety and Judgment intact Short Term Memory intact Clay Washer Memory intact Vision (check all that apply) Vision prescription glasses Sensory Examination Sensory Examination WFL (numbness in bilateral LE at baseline) Range of Motion (ROM) Range of Motion Examination bilateral upper extremity ROM was WFL Bed Mobility Skill: Supine to Sit, Rehab Eval Level of [place]: Supine/Sit stand-by assist Physical Assist/Nonphysical Assist: Supine/Sit 1 person assist Transfer Skill: Sit to Stand, Rehab Eval Level of [place]: Sit/Stand contact guard Physical Assist/Nonphysical Assist: Sit/Stand 1 person assist Weight-Bearing Restrictions: Sit/Stand toe touch weight-bearing Assistive Device for Transfer: Sit/Stand wheeled walker Upper Body Dressing Level of [place] (set up) Lower Body Dressing Level of [place] moderate assist (50% patients effort) Physical Assist/Nonphysical Assist 1 person assist Assistive Device tarring machine operator General Therapy Interventions Planned Therapy Interventions (OT [...] Impairment in Daily Activity - CH CURRENT [facility] Daily Activity Inpatient Short Form Putting on/Taking [...] yes Goals Goals For Discharge discharge to [facility] Discussed risk / benefits with patient Therapist Recommendations At Discharge Recommendations OT Services recommended at Discharge Plan Plan Narrative continue with bathing, dressing and transfer training Therapist Information License # [id number] 1. Pt will complete LB dressing min [...] Supine to Sit, Rehab Eval Level of [place]: Supine/Sit stand-by assist Transfer Skill: Sit To Stand, Rehab Eval [place] (Sit-Stand Transfers) minimum assist (75% patient effort) Weight-Bearing Restrictions: Sit/Stand toe touch weight-bearing Assistive Device For Transfer: Sit/Stand 2 wheeled walker Gait Skills, PT Eval Level of [place]: Gait contact guard Weight-Bearing Restrictions: Gait toe [...] swelling, and pt reports understanding. [facility] Basic Mobility Inpatient Short Form Turning over in bed 4 - No Assistance Sitting/standing from chair 4 - No Assistance Moving from lying on back to sitting 4 - No Assistance Moving to and from bed to chair 4 - No Assistance Walk in hospital room 4 - No Assistance Climbing 3-5 steps with a railing 4 - No Assistance [facility] Mobility Raw Score 24 [facility] Mobility Functional Limitation/Modifier 0.00% Prior Functional Impairment in Basic Mobility - CH CURRENT [facility] Basic Mobility Inpatient Short Form Turning [...] 2 - A Lot of Assistance CURRENT [facility] Mobility Raw Score 17 CURRENT [facility] Mobility Functional Limitation/Modifier 50.57% Currently Impaired in Basic Mobility - CK Projected [facility] Mobility Raw Score 20 Projected [facility] Mobility Functional Limitation/Modifier 35.83% Projected Functional [...] as able. Therapist Information [place] # [id number] PT Goals: 1. Pt will demonstrate understanding [...] on LLE. PTAs notified. * Rajinder Green, LA[employer] POL[employer]-UNCLAIMED 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 - 11/21/2018 2:04 PM EST THIS PATIENT [...] ILLNESS: Danyelle is an established patient of [facility]. She is here today for followup. She [...] per her previous regimen prescribed by her psychiatry adult physician. I will leave this up to the house physician at the [facility], where she is residing today. She can [...] and concerns were addressed to her satisfaction. (DOC:[id number]) Procedures I have reviewed the findings of the clinical support team member and agree with their assessment. EFREN Logan Ortho Nurse Established Patient Intake Room#: 4 Date: 12/14/2018 2:47 PM Patient: Danyelle Haskins MR#: [id number] : 1955 Age: 63 y.o. 3 wk [...] CATARACT W/ IMPLANT (ECCE IOL) Bilateral 2018 [facility] TREATMENT OPEN PATELLAR FX W/ INTERNAL [...] mouth 3 times daily as needed. Biotin 39940 MCG Tab take 2 tablets by mouth [...] as needed. , Disp: , Rfl: Biotin 48238 MCG Tab, take 2 tablets by mouth [...] 12/14/2018 2:47 PM Patient: Danyelle Haskins MR#: [id number] : 1955 Age: 63 y.o. 3 wk [...] CATARACT W/ IMPLANT (ECCE IOL) Bilateral 2017 [facility] TREATMENT OPEN PATELLAR FX W/ INTERNAL [...] mouth 3 times daily as needed. Biotin 34540 MCG Tab take 2 tablets by mouth [...] as needed. , Disp: , Rfl: Biotin 04428 MCG Tab, take 2 tablets by mouth [...] have reviewed the findings of the clinical support team member and agree with their assessment. New Mcclure MD Ortho Nurse Established Patient Intake Room#: 3 Date: 03/01/2019 2:16 PM Patient: Danyelle Haskins MR#: [id number] : 1955 Age: 63 y.o. 6wk F/U [...] CATARACT W/ IMPLANT (ECCE IOL) Bilateral 2017 [facility] TREATMENT OPEN PATELLAR FX W/ INTERNAL [...] mouth 3 times daily as needed. Biotin 34560 MCG Tab take 2 tablets by mouth [...] as needed. , Disp: , Rfl: Biotin 25500 MCG Tab, take 2 tablets by mouth [...] 03/01/2019 2:16 PM Patient: Danyelle Haskins MR#: [id number] : 1955 Age: 63 y.o. 6wk F/U [...] CATARACT W/ IMPLANT (ECCE IOL) Bilateral 2018 [facility] TREATMENT OPEN PATELLAR FX W/ INTERNAL [...] mouth 3 times daily as needed. Biotin 44636 MCG Tab take 2 tablets by mouth [...] as needed. , Disp: , Rfl: Biotin 74580 MCG Tab, take 2 tablets by mouth [...] have reviewed the findings of the clinical support team member and agree with their assessment. New Mcclure MD Ortho Nurse Established Patient Intake Room#: 4 F/U Right hip, feeling better, pain of 5-6 when doing steps, done with PT; Left TKA 11-21-, last PT was yesterday, pain of 1-2 Date: 04/18/2019 4:31 PM Patient: Danyelle Haskins MR#: [id number] : 1955 Age: 63 y.o. Referring Physician: [...] CATARACT W/ IMPLANT (ECCE IOL) Bilateral 2017 [facility] TREATMENT OPEN PATELLAR FX W/ INTERNAL [...] mouth 3 times daily as needed. Biotin 35118 MCG Tab take 2 tablets by mouth [...] as needed. , Disp: , Rfl: Biotin 61703 MCG Tab, take 2 tablets by mouth [...] 04/18/2019 4:31 PM Patient: Danyelle Haskins MR#: [id number] : 1955 Age: 63 y.o. Referring Physician: [...] CATARACT W/ IMPLANT (ECCE IOL) Bilateral 2018 [facility] TREATMENT OPEN PATELLAR FX W/ INTERNAL [...] mouth 3 times daily as needed. Biotin 40847 MCG Tab take 2 tablets by mouth [...] as needed. , Disp: , Rfl: Biotin 28522 MCG Tab, take 2 tablets by mouth [...] perhaps not, though she is closer towards fdc. She has had previous extensor mechanism reconstruction [...] of the right knee, which demonstrate knee, [id number] arthritis of the lateral compartment, and multiple [...] she like to proceed with surgical revision. (DOC:[id number]) LARGE JOINT INJECTION: R knee Date/Time: 11/21/2019 [...] have reviewed the findings of the clinical support team member and agree with their assessment. New Mcclure MD Ortho Nurse Established Patient Intake Room#: 3---1 year post-op check for left TKA . She has been doing well. Date: 11/21/2019 1:38 PM Patient: Danyelle Haskins MR#: [id number] : 1955 Age: 64 y.o. Referring Physician: [...] CATARACT W/ IMPLANT (ECCE IOL) Bilateral 2017 [facility] TREATMENT OPEN PATELLAR FX W/ INTERNAL [...] mouth 3 times daily as needed. Biotin 48923 MCG Tab take 2 tablets by mouth [...] 11/21/2019 1:38 PM Patient: Danyelle Haskins MR#: [id number] : 1955 Age: 64 y.o. Referring Physician: [...] CATARACT W/ IMPLANT (ECCE IOL) Bilateral 2017 [facility] TREATMENT OPEN PATELLAR FX W/ INTERNAL [...] mouth 3 times daily as needed. Biotin 88466 MCG Tab take 2 tablets by mouth [...] have reviewed the findings of the clinical support team member and agree with their assessment. Ortho Nurse Established Patient Intake Room#: 2 2 year Left TKA 11-21-18, pain of 2, cannot straighten her leg and it varinder, Amoxicillin was ordered today Date: 11/19/2020 2:31 PM Patient: Danyelle Haskins MR#: [id number] : 1955 Age: 65 y.o. Referring Physician: [...] CATARACT W/ IMPLANT (ECCE IOL) Bilateral 2018 [facility] TREATMENT OPEN PATELLAR FX W/ INTERNAL [...] Take 500 mg by mouth daily. Biotin 80366 MCG Tab take 2 tablets by mouth 2 times daily.. Calcium Carb-Cholecalciferol (CALCIUM 600 + D) 600-200 MG-UNIT Tab tablet Take 2.5 tablets by mouthDaily (with lunch). Diclofenac Sodium 1 % Gel gel Diclofenac Diclofenac Sodium Active 4 GM Topical Four times daily October 01, 2020 10:38am 10-01-2020 [facility] ([id number]) ferrous sulfate 325 (65 Fe) MG Tab [...] by mouth daily., Disp: , Rfl: Biotin 43503 MCG Tab, take 2 tablets by mouth 2 times daily.. , Disp: , Rfl: Calcium Carb-Cholecalciferol (CALCIUM 600 + D) 600-200 MG-UNIT Tab tablet, Take 2.5 tablets by mouth Daily (with lunch). , Disp: , Rfl: Diclofenac Sodium 1 % Gel gel, Diclofenac Diclofenac Sodium Active 4 GM Topical Four times daily October 01, 2020 10:38am 10-01-2020 [facility] ([id number]), Disp: , Rfl: ferrous sulfate 325 (65 [...] 11/19/2020 2:31 PM Patient: Danyelle Haskins MR#: [id number] : 1955 Age: 65 y.o. Referring Physician: [...] CATARACT W/ IMPLANT (ECCE IOL) Bilateral 2017 [facility] TREATMENT OPEN PATELLAR FX W/ INTERNAL [...] Take 500 mg by mouth daily. Biotin 18171 MCG Tab take 2 tablets by mouth 2 times daily.. Calcium Carb-Cholecalciferol (CALCIUM 600 + D) 600-200 MG-UNIT Tab tablet Take 2.5 tablets by mouthDaily (with lunch). Diclofenac Sodium 1 % Gel gel Diclofenac Diclofenac Sodium Active 4 GM Topical Four times daily October 01, 2020 10:38am 10-01-2020 [facility] ([id number]) ferrous sulfate 325 (65 Fe) MG Tab [...] by mouth daily., Disp: , Rfl: Biotin 17045 MCG Tab, take 2 tablets by mouth 2 times daily.. , Disp: , Rfl: Calcium Carb-Cholecalciferol (CALCIUM 600 + D) 600-200 MG-UNIT Tab tablet, Take 2.5 tablets by mouth Daily (with lunch). , Disp: , Rfl: Diclofenac Sodium 1 % Gel gel, Diclofenac Diclofenac Sodium Active 4 GM Topical Four times daily October 01, 2020 10:38am 10-01-2020 [facility] ([id number]), Disp: , Rfl: ferrous sulfate 325 (65 [...] have reviewed the findings of the clinical support team member and agree with their assessment. New Mcclure MD Ortho Nurse Established Patient Intake Room#: 3 6 week F/U left knee ext mechanism repair, no C/O pain Date: 01/03/2019 3:26 PM Patient: Danyelle Haskins MR#: [id number] : 1955 Age: 63 y.o. Referring Physician: [...] CATARACT W/ IMPLANT (ECCE IOL) Bilateral 2018 [facility] TREATMENT OPEN PATELLAR FX W/ INTERNAL [...] mouth 3 times daily as needed. Biotin 87405 MCG Tab take 2 tablets by mouth [...] as needed. , Disp: , Rfl: Biotin 90205 MCG Tab, take 2 tablets by mouth [...] 01/03/2019 3:26 PM Patient: Danyelle Haskins MR#: [id number] : 1955 Age: 63 y.o. Referring Physician: [...] CATARACT W/ IMPLANT (ECCE IOL) Bilateral 2018 [facility] TREATMENT OPEN PATELLAR FX W/ INTERNAL [...] mouth 3 times daily as needed. Biotin 88057 MCG Tab take 2 tablets by mouth [...] as needed. , Disp: , Rfl: Biotin 94051 MCG Tab, take 2 tablets by mouth [...] left- Primary Hospital Course * Tanvi Hernandez, UNCLAIMED 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 - 11/24/2018 11:21 AM EST Formatting of this note may be different from the original. Discharge Summary Name: Danyelle Haskins Age: 63 y.o. Birthday: 1955 Admit Date: 11/21/2018 8:19 AM Discharge Date: 11/24/2018 Brief Summary of Hospital Course: Pain in left knee S/p left TKA POD#3 PT OT health and social care teacher discharge planning DVT prophylaxis Kandisquis Will dc [...] % LIQD Commonly known as: HIBICLENS hydroxychloroquine ([id number]-41629) 200 MG TABS leflunomide 20 MG TABS [...] as needed. Commonly known as: LIORESAL Biotin 95566 MCG TABS take 2 tablets by mouth [...] tolerated. Discharge Follow-up: New Mcclure MD [address] [id number] In 3 weeks Discharge Disposition: Patient will be discharged in stable condition. Discharge Time: Including assessment, planning, and medication reconciliation was greater than 35 min. Tanvi Hernandez DNP completing Discharge Summary for Dr. Vance Please note Portions of this note utilized [employer] dictation software, please excuse any typographical or [...] be removed by a nurse at the [place] 10-14 days after surgery. Your surgery d [...] - 11/24/2018 5:16 PM EST Contact Office ([phone]) if: > Total Knee ROM < 90 [...] Care Everywhere. * Acetaminophen tablets or caplets (Mozambican) * Apixaban oral tablets (Mozambican) * Docusate capsules (Mozambican) * Oxycodone tablets or capsules (Mozambican) in this encounter Additional Source Comments INFORMATION SOURCE (unrecogn ized section and content) DATE CREATED AUTHOR 05/02/2018 [facility] DATE CREATED AUTHOR AUTHOR'S ORGANIZ ATION 05/02/2018 [facility] DATE CREATED AUTHOR AUTHOR'S ORGANIZ ATION 05/05/2018 [facility] DATE CREATED AUTHOR AUTHOR'S ORGANIZ ATION 03/22/2020 [facility] DATE CREATED AUTHOR AUTHOR'S ORGANIZ ATION 02/01/2022 [facility] DATE CREATED AUTHOR AUTHOR'S ORGANIZ ATION 02/13/2023 [facility] DATE CREATED AUTHOR AUTHOR'S ORGANIZ ATION 07/09/2023 [facility] DATE CREATED AUTHOR AUTHOR'S ORGANIZ ATION 04/27/2024 [facility] DATE CREATED AUTHOR AUTHOR'S ORGANIZ ATION 08/18/2024 [facility] EPIC Reason for Visit (unrecogniz ed section and content) Reason Comments Preoperative Nurse Assessment Surgery sc heduled 11/21/18 Status Reason Specialty Diagnoses / Procedures Referre d By Contact Referred To Contact Diagnoses 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] New Mcclure MD [address] [place] [address] Status Reason Specialty Diagnoses / Procedures Referred By Contact Referred To Contact New Request Diagnoses Hx of total knee arthroplasty, left Procedures XR KNEE LEFT 2 VIEWS XR KNEE LEFT 3 VIEWS Rajinder Green APRN-UNCLAIMED 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 [address] [place] [id number] Reason Comments Post Op Visit Reason Comments Leg Swelling Reason Comments Follow-up Post Op Visit Status Reason Specialty Diagnoses / Procedures Referred By Contact Referred To Contact New Request Diagnoses Left knee pain, unspecified chronicity Procedures XR KNEE LEFT 2 VIEWS XR KNEE LEFT 3 VIEWS New Mcclure MD [address] [place], [place] [phone] Reason Comments Follow-up Status Reason Specialty Diagnoses / Procedures Referred By Contact Referred To Contact Pending Review Diagnoses History of total knee arthroplasty, left Procedures XR KNEE LEFT 3 VIEWS New Mcclure MD [address] [place], [place] [phone] Reason Comments Post Op Visit Reason Comments Follow-up Reason Comments Skin Problem Status Reason Specialty Diagnoses / Procedures Referred By Contact Referred To Contact New Request Diagnoses Hx of total knee arthroplasty, left Procedures XR KNEE LEFT 3 VIEWS New Mcclure MD [address] [place] [phone] Status Reason Specialty Diagnoses / Procedures Referred By Contact Referred To Contact New Request Diagnoses Right hip pain Procedures XR HIP WITH PELVIS RIGHT New Mcclure MD [address] [place] [phone] Reason Comments Follow-up Specialty Diagnoses / Procedures Referred By Contac t Referred To Contact Diagnoses Hx of total knee arthroplasty, right Procedures XR KNEE RIGHT 3 VIEWS Rajinder Green, [employer]-UNCLAIMED 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 [address] [place] [address] Referral ID Status Reason Start Date Expiration Date V isits Requested Visits Authorized [id number] New Request 05/11/2023 06/04/2024 1 1 Specialty Diagnoses / Procedures Referred By Contac t Referred To Contact Diagnoses Hx of total knee arthroplasty, right Procedures XR BONE LENGTH STUDY New Mcclure MD [address] [place] [address] Referral ID Status Reason Start Date Expiration Date V isits Requested Visits Authorized [id number] New Request 08/30/2023 09/23/2024 1 1 Reason Comments Pain Reason Comments Preoperative Assessment LTKA revision w/ poss extensor mechanism reconstruction 11/29 SAF Pg *PAT ONLY Specialty Diagnoses / Procedures Referred By Contac t Referred To Contact Diagnoses Preop testing Procedures PREPARE TO TRANSFUSE RED BLOOD CELLS New Mcclure MD [address] [place] [phone] Referral ID Status Reason Start Date Expiration Date V isits Requested Visits Authorized [id number] New Request 11/01/2023 11/25/2024 1 1 Specialty Diagnoses / Procedures Referred By Contac t Referred To Contact Diagnoses Hx of total knee arthroplasty, left Procedures XR KNEE LEFT 1-2 VIEWS XR KNEE LEFT 3 VIEWS Rajinder Green, [employer]-UNCLAIMED 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 [address] [place] [phone] Referral ID Status Reason Start Date Expiration Date V isits Requested Visits Authorized [id number] New Request 12/20/2023 01/13/2025 1 1 Specialty Diagnoses / Procedures Referred By Contac t Referred To Contact Diagnoses Right knee pain, unspecified chronicity Procedures XR KNEE RIGHT 3 VIEWS New Mcclure MD [address] [place] [phone] Referral ID Status Reason Start Date Expiration Date V isits Requested Visits Authorized [id number] New Request 01/09/2024 02/02/2025 1 1 Reason Comments Pain Specialty Diagnoses / Procedures Referred By Contac t Referred To Contact Diagnoses Hx of total knee arthroplasty, left Procedures XR BONE LENGTH STUDY Rajinder Green, [employer]-UNCLAIMED 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 [address] [place] [id number] Referral ID Status Reason Start Date Expiration Date V isits Requested Visits Authorized [id number] New Request 02/21/2024 03/17/2025 1 1 Reason Comments Follow-up Reason Comments Follow-up 14d s/p I&d Care Teams (unrecognized sec tion and content) Pocketbook Maker Relationship Specialty Start Date End Date Hoy, Yulisa M, MD [address] [place] [address] [place] [address] PCP - General Family Medicine 03/18/23 Pocketbook Maker Relationship Specialty Start Date End Date Yulisa Batres MD [address] [place] [address] [place] [address] PCP - General Family Medicine 03/18/23 Pocketbook Maker Relationship Specialty Start Date End Date Yulisa Batres MD [address] [place] [address] [place] [address] PCP - General Family Medicine 03/18/23 Pocketbook Maker Relationship Specialty Start Date End Date Yulisa Batres MD [address] [place] [address] [place] [address] PCP - General Family Medicine 03/18/23 Pocketbook Maker Relationship Specialty Start Date End Date Yulisa Batres MD [address] [place] [address] [place] [address] PCP - General Family Medicine 03/18/23 Pocketbook Maker Relationship Specialty Start Date End Date Yulisa Batres MD [address] [place] [address] [place] [address] PCP - General Family Medicine 03/18/23 Pocketbook Maker Relationship Specialty Start Date End Date Yulisa Batres MD [address] [place] [address] [place] [address] PCP - General Family Medicine 03/18/23 Pocketbook Maker Relationship Specialty Start Date End Date Yulisa Batres MD [address] [place] [address] [place] [address] PCP - General Family Medicine 03/18/23 Pocketbook Maker Relationship Specialty Start Date End Date Yulisa Batres MD [address] [place] [facility] [place] [address] PCP - General Family Medicine 03/18/23 Pocketbook Maker Relationship Specialty Start Date End Date Yulisa Batres MD [address] [place] [facility] [place] [address] PCP - General Family Medicine 03/18/23 Pocketbook Maker Relationship Specialty Start Date End Date Yulisa Batres MD [address] [place] [facility] [place] [address] PCP - General Family Medicine 03/18/23 Pocketbook Maker Relationship Specialty Start Date End Date Yulisa Batres MD [address] [facility] [place] [address] PCP - General Family Medicine 03/18/23 Pocketbook Maker Relationship Specialty Start Date End Date Yulisa Batres MD [address] [facility] [place] [address] PCP - General Family Medicine 03/18/23 Pocketbook Maker Relationship Specialty Start Date End Date Yulisa Batres MD [address] [place] [facility] [place] [address] PCP - General Family Medicine 03/18/23 Pocketbook Maker Relationship Specialty Start Date End Date Yulisa Batres MD [address] [facility] [address] [place] [address] PCP - General 07/06/23 Gaby Christianson NP [address] [place], [place] [address] [address] Nurse Practitioner Neurology 01/26/24 Darren Monaco MD [address] [facility] [address] [place] [address] Referring Physician Rheumatology 07/31/24 Pocketbook Maker Relationship Specialty Start Date End Date Yulisa Batres MD [address] [place] [address] PCP - General 07/06/23 Gaby Christianson NP [address] [place] [address] Nurse Practitioner Neurology 01/26/24 Darren Monaco MD [address] [facility] [address] [place] [address] Referring Physician Rheumatology 07/31/24 Goals (unrecognized section [...] BE BASED ON THE PRIMARY CLINICAL RECORDS. [facility] [employer] [facility]. provides no warranty or guarantee of the accuracy or completeness of information in this document.
== END 2024-09-03 08:17 | disposition home or self-care (01) ==
LOC: MAMMO 08:16
PROVIDERS: PCP Family Medicine; Visit Provider Family Medicine
DX: Z12.31 Encounter for screening mammogram for malignant neoplasm of breast (principal); Z80.0 Family history of malignant neoplasm of digestive organs; Z80.8 Family history of malignant neoplasm of other organs or systems
CPT/HCPCS: 77063; 77067

== ENCOUNTER 2024-10-23 11:47 | Outpatient (OUT) | payer MEDICARE, BC, SELFPAY ==
--- OUTSIDE RECORDS SUMMARY | 2024-10-23 12:00 | XMS_ITS | CCD ---
Author Organization [facility]iniSymt Care Team Providers Care Pattern Chain Maker Supervisor Name Role Phone Wood, Star A Unavailable Unavailable Wood, Star A Unavailable Unavailable Wood, Star A Unavailable Unavailable Wood, Star A Unavailable Unavailable FOSTER, NEW Unavailable Unavailable FOSTER, NEW Unavailable Unavailable BROWNSTEPHEN TORRES Unavailable Unavailable ARLYN VANCE Unavailable Unavailable FOSTER, NEW Unavailable Unavailable DAYRON ZAVALA Unavailable Unavailable Salomón Gonzalez Unavailable Salomón Gonzalez Primary Care Provider [phone] Salomón Gonzalez Primary Care Provider [phone] Salomón Gonzalez DO Primary Care Provider Stephen [...] Unavailable Yulisa Batres MD Primary Care Provider [phone] Yulisa Batres MD Primary Care Provider [phone] Mary Resendez Admitting Unavailable Mal, Mary Attending [...] Unavailable HOY, YULISA M Primary Care Unavailable Yulisa Batres MD Primary Care Provider [phone] Sammy ACCOUNTS RECEIVABLE ACCOUNTANT, Gaby Unavailable Jacinda OCONNELL, Darren Chatman Unavailable [phone] ELIE HARPER Attending Unavailable MAGALIE KAUFMAN Attending Unavailable ELIE HARPER Attending Unavailable GABY CHRISTIANSON Attending Unavailable ELIE HARPER Attending Unavailable MAGALIE KAUFMAN Attending Unavailable RAMON BARRETO Attending Unavailable ELIE HARPER Attending Unavailable ELIE HARPER Attending Unavailable ELIE HARPER Attending Unavailable SHANTE MONTENEGRO Attending Unavailable Allergies Allergy Classification Reported Allergen(s) Allergy Type Date of Onset Reaction(s) Facility Alendronate (1 source) Alendronate Drug Allergy 018 Abdominal Discomfort, Dyspepsia [facility] Anti-Epileptic Agents (3 sources) gabapentin Drug Allergy 018 Nausea and Vomiting, Blisters [facility] Sulfamethoxazole / Trimethoprim (1 source) Sulfamethoxazole / Trimethoprim Drug Allergy 021 Myalgia [facility] (20 sources) Alendronate Drug Allergy 018 Abdominal Discomfort, Dyspepsia, Rash [facility] Work Phone: (20 sources) gabapentin Drug Allergy 018 Nausea and Vomiting, Nausea Only, Rash [facility] Work Phone: (20 sources) gabapentin Drug Allergy 018 Blisters [facility] Work Phone: (20 sources) OXcarbazepine Drug Allergy 018 Nausea and Vomiting [facility] Work Phone: (18 sources) Ciprofloxacin Drug Allergy 021 Unknown, Unknown Reaction [facility] (20 sources) levoFLOXacin Drug Allergy 023 Unknown [facility] Other (20 sources) Sulfamethoxazole / Trimethoprim Drug Allergy 021 Myalgia [facility] Other (1 source) Alendronate Drug Allergy [facility] (1 source) gabapentin Drug Allergy [facility] (1 source) gabapentin Drug Allergy [facility] (1 source) OXcarbazepine Drug Allergy [facility] (2 sources) Alendronate; Translations: [alendronate sodium] Drug Allergy Unknown Reaction [facility] (6 sources) Sulfamethoxazole; Translations: [sulfamethoxazole] Drug Allergy Weakness [facility] (6 sources) Trimethoprim; Translations: [trimethoprim] Drug Allergy Weakness [facility] (1 source) Ciprofloxacin Drug Allergy [facility] (1 source) gabapentin Drug Allergy [facility] (1 source) OXcarbazepine Drug Allergy [facility] (20 sources) Oxcarbazepine Propensity to adverse reactions to drug Nausea and Vomiting, Rash [facility] Medications Current Medications Medication Drug Class(es) Dates Sig (Normalized) Sig (Original) acetaminophen 325 mg oral tablet (20 sources) Start: 11-29-2023 take 2 tablets by mouth every four hours as needed Acetaminophen 325 MG tablet Take 2 tablets by mouth every 4 hours as needed for Mild Pain. 50 tablet 1 11/29/2023 Active Start: 04-26-2023 take 2 tablets by mo [facility] every four hours as needed Acetaminophen 325 [...] Start: 11-21-2018 take 2 tablets by mo [facility] every six hours acetaminophen (TYLENOL) tablet 1,000 mg Start: 07-18-2017 End: 11-24-2018 take 2 tablets by mouth every four hours as needed acetaminophen 325 MG tablet Take 2 tablets by mouth every 4 hours as needed for Mild Pain. 50 tablet 1 11/21/2018 Active take 1 tablet by thuy twice daily as needed acetaminophen (Tylenol 8 [...] PO Daily October 01, 2020 1:00am take 2 tablets by mouth in the m orning ascorbic acid (Vitamin C) 500 MG tablet Take 1,000 mg by mouth in the morning. Active take 1 tablet by mouth in the mo rning ascorbic acid (Vitamin C) 500 MG tablet Take 500 mg by mouth in the morning. Active Ascorbic Acid (V itamin C) 1000 MG tablet Take 500 mg by mouth daily. 0 Active azithromycin 250 mg oral tablet (1 source) Macrolide Antimicrobial Start: 07-18-2024 End: 07-23-2024 take 1 tablet by mouth once daily azithromycin (Zithromax Z-Rhett) 250 MG tablet Indications: Abscess of toe, right Take 1 tablet (250 mg) by mouth Daily for 5 days Use as directed 6 tablet 07/18/2024 07/23/2024 Active biotin 1 mg chewable tablet (20 sources) Start: 05-07-2021 take 1000 ug by mouth once daily Biotin Active 1000 MCG PO Daily May 07, 2021 12:00am Start: 10-01-2020 take 62460 ug by mouth twice d aily Biotin Active 93956 MCG PO Twice daily October 01, 2020 1:00am take 2 capsules by m outh in the morning biotin 1 MG capsule Take 2 mg by mouth in the morning. Active biotin 1 MG caps ule Take by mouth Daily Active take 2 tablets by mo ut twice daily Biotin 97122 MCG Tab Take 2 tablets by mouth [...] / vitamin k 0.4 mg chewable tablet (11 sources) Vitamin D Calcium-Vitamin D-Vitamin K (Calcium + D) 500-1000-40 MG-UNT-MCG chewable tablet 1 (one) time each day at the same time. Active carvedilol 25 mg oral tablet (20 sources) alpha-Adrenergic Heidi, beta-Adrenergic Heidi Start: 11-14-19 24 take 1 tablet by mouth twice daily carveDILOL 25 MG tablet Take 1 tablet by mouth 2 times daily. 11/14/2023 Active Start: 12-21-2022 take 1 tablet by thuy th twice daily carveDILOL 12.5 MG tablet Take 1 tablet by mouth 2 times daily. 0 12/21/2022 Active take 2 tablets by mo uth every twelve hours carvedilol (Coreg) 12.5 MG tablet Take 25 mg by mouth every 12 (twelve) hours Active Chondroitin Sulfates / Gluco samine (20 [...] 1 07/01/2018 Active D-BIOTIN (18 sources) Biotin 01517 MCG Tab take 2 tablets by mouth 2 times daily.. 0 Active Biotin 86155 MCG Tab take 2 tablets by mouth [...] October 01, 2020 10:38am 10-01-2020 [facility] ([id number]) 10/01/2020 Active Start: 10-01-2020 Diclofenac Sod ium 1 % Gel gel Diclofenac Diclofenac Sodium Active 4 GM Topical Four times daily October 01, 2020 10:38am 10-01-2020 [facility] ([id number]) 0 10/01/2020 Active Start: 10-01-2020 apply 4 [...] Glucosamine-Chondro it-Vit C-Mn (Glucosamine 1500 Complex) capsule (20 sources) Glucosamine-David droit -Vit C-Mn (Glucosamine 1500 Complex) capsule as directed Orally Active Glucosamine-David droit-Vit C-Mn (Glucosamine 1500 Complex) capsule Take by mouth daily. Active Glucosamine-David droit-Vit C-Mn (Glucosamine 1500 Complex) capsule Take by mouth daily. 0 Active Wvdmcyhuagq-Tbs-Mzgzqcptd-Vi tc (Glucosamine Complex-Msm) Capsule (1 source) Start: 10-01-2020 take 1 capsule by mouth once daily Rxddkpjtxmn-Pwo-Orouzvube-Vitc (Glucosamine Complex-Msm) Capsule Active 1 CAP PO [...] Tue11/21/18 at 1230, Until Discontinued triamterene-hydr ochlorothiazide (Maxzide-25) 37.5-25 MG tablet Active triamterene-hydr ochlorothiazide 37.5-25 MG Cap Take 1 capsule by mouth as needed (edema). Active 1 ml HYDROmorphone hydrochloride 1 mg/ml [...] Tuesday End: 11-24-2018 methotrexate 2.5 MG tablet A ctive methylPREDNISolone (20 sources) Corticosteroid Start: 02-21-2023 methylPREDNISo lone (Medrol Dospak) 4 MG tablets TAKE DIRECTED 02/21/2023 Active Start: 02-21-2023 methylPREDNIso lone 4 MG Tab Therapy Pack tablet as needed. 02/21/2023 Active Start: 02-21-2023 methylPREDNIso lone 4 MG Tab Therapy Pack tablet As directed. 0 02/21/2023 Active Multiple Vitamin (multivitamin) tablet (2 sources) take 1 tablet by thuy th once daily Multiple Vitamin (multivitamin) tablet Take 1 tablet by mouth Daily Active Multiple Vitamins-Minerals (MULTIVITAMIN ADULT PO) (20 sources) Multiple Vitamin s-Minerals [...] on. 1-2 as needed per day pregabalin 50 mg oral capsule (20 sources) Start: 10-15-2024 End: 10-15-2025 take 1 capsule by mouth in the morning pregabalin (Lyrica) 50 MG capsule Indications: Paresthesias , Spinal stenosis of lumbar region, unspecified whether neurogenic claudication present Take 1 capsule (50 mg) by mouth in the morning and 1 capsule (50 mg) before bedtime. 60 capsule 2 10/15/2024 10/15/2025 Active Start: 02-15-2023 End: 10-17-2024 take 1 capsule by mouth in the morning pregabalin (Lyrica) 25 MG capsule Indications: Polyneuropathy , Spinal stenosis of lumbar region, unspecified whether neurogenic claudication present , Degenerative disc disease, lumbar Take 1 capsule (25 mg) by mouth in the morning and 1 capsule (25 mg) before bedtime. 60 capsule 2 2024 10/15/2024 Discontinued (Ineffective) psyllium 520 mg oral capsule (20 sources) [...] Active thioctic acid 200 mg oral tablet (16 sources) Start: 10-01-2020 take 200 mg by mouth once daily Alpha Lipoic Acid Active 200 MG PO Daily October 01, 2020 1:00am Alpha Lipoic Aci d 200 MG capsule 1 capsule. Active tiZANidine 4 mg oral tablet (20 [...] by mouth. 0 Active Turmeric Root Extract (20 sources) Start: 05-07-2021 take 500 mg by [...] Date Documented Date Episodic/Chronic Acquired foot deformities (3 sources) Acquired deformity of toe of left foot; Translations: [Acquired deformities of toe(s), unspecified, left foot] 08-12-2024 Episodic Cataract (19 sources) After-cataract of left eye; Translations: [Other [...] including migraine; Translations: [HEADACHE UNSPECIFIED] Onset: 04-20-2022 Mycoses (1 source) Pain in toe; Translations: [Tinea unguium] 08-31-2024 Episodic Nutritional deficiencies (1 source) Vitamin D deficiency, unspecified; Translations: [VITAMIN D DEFICIENCY UNSPECIFIED] Onset: 10-26-2022 Chronic Osteoarthritis (20 sources) Primary generalized (osteo)arthritis; Translations: [Osteoarthritis of right knee joint] Onset: 02-12-2023 04-26-2023 Chronic Osteoporosis (4 sources) Age-related osteoporosis without current pathological fracture; Translations: [AGE-REL OSTEOPOR W/O CURR PATH FX] Onset: 08-27-2022 Chronic Other aftercare (1 source) Other senior care (current) drug therapy; Translations: [OTH FPC CURRENT DRUG THERAPY] Onset: 02-12-2023 Episodic Other aftercare (8 sources) Drug therapy finding; Translations: [Other senior care (current) drug therapy] Onset: 07-31-2024 07-31-2024 Episodic [...] Other hereditary and degenerative nervous system conditions (15 sources) Blepharospasm; 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] Onset: 04-24-2024 04-24-2024 Chronic Other nervous system disorders (11 sources) Peripheral nerve disease ; Translations: [Polyneuropathy, unspecified] Onset: 04-24-2024 04-24-2024 Chronic Other nervous system disorders (11 sources) Small fiber neuropathy; Translations: [Polyneuropathy, unspecified] Onset: 04-24-2024 04-24-2024 Chronic Other nervous system disorders (14 sources) Polyneuropathy; Translations: [Polyneuropathy, unspecified] Onset: 04-24-2024 04-24-2024 Chronic Other nervous system disorders (15 sources) Paresthesia; Translations: [Paresthesia of skin] Onset: 04-24-2024 04-24-2024 Episodic Other non-traumatic joint disorders (2 sources) [...] Onset: 2017 11-21-2018 Peripheral and visceral atherosclerosis (11 sources) Peripheral vascular disease; Translations: [Peripheral vascular disease, unspecified] Onset: 04-24-2024 04-24-2024 Chronic Retinal detachments; defects; vascular occlusion; and retinopathy (11 sources) Nonexudative age-related macular degeneration; Translations: [Nonexudative [...] disc disorders; other back problems (20 sources) Lumbar spondylosis; Translations: [Spondylosis without myelopathy or radiculopathy, lumbar region] Onset: 08-31-2021 Resolved: 08-31-2021 Chronic Spondylosis; intervertebral disc disorders; other back problems (20 sources) Sciatica; Translations: [Sciatica, left side] Onset: 08-31-2021 Resolved: 08-31-2021 Episodic Systemic lupus erythematosus and connective tissue disorders [...] Episodic Conditions associated with dizziness or vertigo (11 sources) Dizziness; Translations: [Dizziness and giddiness] Onset: [...] that caused by tuberculosis or sexually transmitteddisease) (11 sources) 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; Translations: [Unspecified blepharitis right eye, upper and lower eyelids] Onset: 07-13-2023 07-13-2023 Episodic Medical examination/evaluation (2 sources) Encounter for other preprocedural examination; Translations: [Encounter for other preprocedural examination] Onset: 07-01-2017 Episodic Other acquired deformities (11 sources) Spondylolisthesis; Translations: [Spondylolisthesis, site unspecified] Onset: 04-24-2024 04-24-2024 Episodic Other bone disease and musculoskeletal deformities (1 source) Other specified disorders of bone density and structure, unspecified site; Translations: [OTH D/O BONE DEN STRUCT UNS SITE] Onset: 09-01-2022 Episodic Other bone disease and musculoskeletal deformities (11 sources) Osteopenia; Translations: [Other specified disorders of [...] 11-21-2018 11-21-2018 Episodic Other connective tissue disease (11 sources) Fibromyalgia; Translations: [Fibromyalgia] Onset: 04-24-2024 04-24-2024 Episodic Other connective tissue disease (11 sources) Weakness of face muscles; Translations: [Facial weakness] Onset: 04-24-2024 04-24-2024 Episodic Other connective tissue disease (11 sources) Spasm; Translations: [Other muscle spasm] Onset: 04-24-2024 04-24-2024 Episodic Other eye disorders (11 sources) Dry eyes; Translations: [Dry eye syndrome of bilateral lacrimal glands] Onset: 07-13-2023 07-13-2023 Episodic Other nervous system disorders (2 sources) Other acute postprocedural pain; Translations: [Other acute postprocedural pain] Onset: 11-29-2023 Episodic Other nervous system disorders (11 sources) Trigeminal neuralgia; Translations: [Trigeminal neuralgia] Onset: 04-24-2024 04-24-2024 Episodic Other nervous system disorders (11 sources) Hemifacial spasm; Translations: [Clonic hemifacial spasm, unspecified] Onset: 04-24-2024 04-24-2024 Episodic Other nervous system disorders (11 sources) Skin sensation disturbance; Translations: [Unspecified disturbances of skin sensation] Onset: 04-24-2024 04-24-2024 Episodic Other non-traumatic joint [...] neoplasm of digestive organs; Translations: [FAM HX MALCHICO NEOPLASM DIGESTIV ORGN] Onset: 09-05-2022 Episodic Residual codes; unclassified (1 source) Family history of malignant neoplasm of other organs or systems; Translations: [FAM HX MALIG NEOPLASM OTH ORGN/SYS] Onset: 09-05-2022 Episodic Sprains and strains (20 sources) Strain of other muscle(s) and tendon(s) at lower leg level, unspecified leg, subsequent encounter; Translations: [Rupture of patellar tendon] Onset: 07-18-2017 2017 Episodic Unclassified (12 sources) Onset: 11-24-2018 Resolved: 12-02-2023 11-24-2018 Results Test Name Value Interpretation Reference Range Facility AFB SMEARon 01-14-2024 ACID FAST CULTURE Negative Normal [facility] Comment on above: Result Comment: No a ramesh fast bacilli isolated after 6 weeks. PERFORMED AT [facility] Performed By: #### A CBC, CMPF, PT #### Testing performed at [address] [address] *RFLX-FUNGUSon 12-29-2023 RESULT 1 Comment Normal [facility] Comment on above: Result Comment: No y east or mold isolated after 4 weeks. PERFORMED AT [facility] Performed By: #### CHARLEY ROBLES #### Testing performed at [facility] [address] [place] [id number] RESULT 1 Comment Normal [facility] Comment on above: Result Comment: No y east or mold isolated after 4 weeks. PERFORMED AT [facility] Performed By: #### A CBC, CMPF, PT #### Testing performed at [address] [address] FUNGUS CULTUREon 12-29-2023 FUNGUS CULTURE Final report Normal [facility] Comment on above: Result Comment: PERF ORMED AT [facility] Performed By: #### CHARLEY ROBLES #### Testing performed at [facility] [address] [place] [address] Performed By: #### A CBC, CMPF, PT #### Testing performed at [address] [address] CBCon 12-02-2023 ABSOLUTE BAS 0.0 10*3/uL Normal 0.0-0.2 [facility] Comment on above: Performed By: #### A CBC, CMPF, PT #### Testing performed at [address] [place] [address] ABSOLUTE EOS 0.0 10*3/uL Normal 0.0-0.7 [facility] Comment on above: Performed By: #### A CBC, CMPF, PT #### Testing performed at [address] [place] [address] ABSOLUTE NEUTROPHIL COUNT 2.4 10*3/uL Normal 1.4-6.5 [facility] Comment on above: Performed By: #### A CBC, CMPF, PT #### Testing performed at [address] [address] Basophils/100 WBC (Bld) 0.3 % Normal 0.0-2.0 [facility] Comment on above: Performed By: #### A CBC, CMPF, PT #### Testing performed at [address] [place] [address] DTYPE AUTO DIFF Normal [facility] Comment on above: Performed By: #### A CBC, CMPF, PT #### Testing performed at [address] [address] Eosinophils/100 WBC (Bld) 0.9 % Normal 0.0-11.0 [facility] Comment on above: Performed By: #### A CBC, CMPF, PT #### Testing performed at [address] [address] Lymphocytes (Bld) [#/Vol] 0.6 10*3/uL Low 1.2-3.4 [facility] Comment on above: Performed By: #### A CBC, CMPF, PT #### Testing performed at [address] [place] [address] Lymphocytes/100 WBC (Bld) 17.6 % Low 20.0-55.0 [facility] Comment on above: Performed By: #### A CBC, CMPF, PT #### Testing performed at [address] [address] Monocytes (Bld) [#/Vol] 0.5 10*3/uL Normal 0.0-0.7 [facility] Comment on above: Performed By: #### A CBC, CMPF, PT #### Testing performed at [address] [address] Monocytes/100 WBC (Bld) 14.6 % High 0.0-10.0 [facility] Comment on above: Performed By: #### A CBC, CMPF, PT #### Testing performed at [address] [address] Neutrophils/100 WBC (Bld) 66.6 % Normal 37.0-75.0 [facility] Comment on above: Performed By: #### A CBC, CMPF, PT #### Testing performed at [address] [address] Erythrocyte distribution width (RBC) [Ratio] 14.2 % Normal 11.5-14.5 [facility] Comment on above: Performed By: #### A CBC, CMPF, PT #### Testing performed at [address] [address] Hematocrit (Bld) [Volume fraction] 27.6 % Low 36.0-48.0 [facility] Comment on above: Performed By: #### A CBC, CMPF, PT #### Testing performed at [address] [address] Hemoglobin (Bld) [Mass/Vol] 9.2 g/dL Low 12.0-16.0 [facility] Comment on above: Performed By: #### A CBC, CMPF, PT #### Testing performed at [address] [address] MCH (RBC) [Entitic mass] 34.3 pg Normal 26.0-35.0 [facility] Comment on above: Performed By: #### A CBC, CMPF, PT #### Testing performed at [address] [address] MCHC (RBC) [Mass/Vol] 33.4 g/dL Normal 27.0-37.0 [facility] Comment on above: Performed By: #### A CBC, CMPF, PT #### Testing performed at [address] [address] MCV (RBC) [Entitic vol] 102.5 fL High 80.0-100.0 [facility] Comment on above: Performed By: #### A CBC, CMPF, PT #### Testing performed at [address] [address] Platelet mean volume (Bld) [Entitic vol] 7.3 fL Low 7.4-11.0 [facility] Comment on above: Performed By: #### A CBC, CMPF, PT #### Testing performed at [address] [address] Platelets (Bld) [#/Vol] 165 10*3/uL Normal 130-400 [facility] Comment on above: Performed By: #### A CBC, CMPF, PT #### Testing performed at [address] [address] RBC (Bld) [#/Vol] 2.69 10*6/uL Low 4.0-5.4 [facility] Comment on above: Performed By: #### A CBC, CMPF, PT #### Testing performed at [address] [address] WBC (Bld) [#/Vol] 3.6 10*3/uL Normal 3.6-11.0 [facility] Comment on above: Performed By: #### A CBC, CMPF, PT #### Testing performed at [address] [address] AFB SMEARon 12-01-2023 ACID FAST SMEAR Negative Normal [facility] Comment on above: Result Comment: [facility] Performed By: #### A CBC, CMPF, PT #### Testing performed at [address] [address] BMP FASTINGon 12-01-2023 Anion gap [Moles/Vol] 7 mmol/L Normal [facility] Comment on above: Performed By: #### B MPF, ACBC #### Testing performed at [address] [address] Calcium [Mass/Vol] 8.4 mg/dL Normal 8.4-10.2 [facility] Comment on above: Performed By: #### B MPF, ACBC #### Testing performed at [address] [address] Chloride [Moles/Vol] 106 mmol/L Normal 98-107 [facility] Comment on above: Result Comment: Sriram arriaga note: Triglyceride levels of 600mg/dL or higher may positively bias chloride results by approximately 2.1 mmol Performed By: #### B MPF, ACBC #### Testing performed at [address] [address] CO2 [Moles/Vol] 23 mmol/L Normal 22-30 [facility] Comment on above: Performed By: #### B MPF, ACJOHN #### Testing performed at [address] [address] Creatinine [Mass/Vol] 0.50 mg/dL Low 0.70-1.20 [facility] Comment on above: Performed By: #### B MPF, ACBC #### Testing performed at [address] [address] EST. GFR, 157 ml/min/1.73sq.m [facility] Comment on above: Performed By: #### B MPF, ACBC #### Testing performed at [address] [address] EST. GFR,Non 130 ml/min/1.73sq.m [facility] Comment on above: Performed By: #### B MPF, ACBC #### Testing performed at [address] [address] GFR Information Average GFR for 70+ years old = 75. [facility] Comment on above: Result Comment: Natural Resource Manager arnie Kidney disease, GFR = <60. Kidney failure, GFR = <15. The GFR estimate is not adjusted for extreme body surface area or acute process, nor has it been validated for women or ethnic groups other than and . Performed By: #### B MPF, ACBC #### Testing performed at [address] [address] Glucose [Mass/Vol] 125 mg/dL High 70-100 [facility] Comment on above: Result Comment: NORMAL <100 mg/dL PREDIABETES 101-126 mg/dL DIABETES 126 mg/dL or higher Performed By: #### B MPF ACBC #### Testing performed at [address] [address] Potassium [Moles/Vol] 3.4 mmol/L Low 3.5-5.1 [facility] Comment on above: Performed By: #### B MPF, ACBC #### Testing performed at [address] [address] Sodium [Moles/Vol] 136 mmol/L Low 137-145 [facility] Comment on above: Performed By: #### B MPF ACBC #### Testing performed at [address] [address] Urea nitrogen [Mass/Vol] 15 mg/dL Normal 7-20 [facility] Comment on above: Performed By: #### B MPF, ACBC #### Testing performed at [address] [address] CBCon 12-01-2023 ABSOLUTE BAS 0.0 10*3/uL Normal 0.0-0.2 [facility] Comment on above: Performed By: #### B MPF, ACBC #### Testing performed at [address] [address] ABSOLUTE EOS 0.0 10*3/uL Normal 0.0-0.7 [facility] Comment on above: Performed By: #### B MPF, ACBC #### Testing performed at [address] [address] ABSOLUTE NEUTROPHIL COUNT 4.1 10*3/uL Normal 1.4-6.5 [facility] Comment on above: Performed By: #### B MPF, ACBC #### Testing performed at [address] [address] Basophils/100 WBC (Bld) 0.1 % Normal 0.0-2.0 [facility] Comment on above: Performed By: #### B MPF, ACBC #### Testing performed at [address] [place] [address] DTYPE AUTO DIFF Normal [facility] Comment on above: Performed By: #### B MPF, ACBC #### Testing performed at [address] [place] [address] Eosinophils/100 WBC (Bld) 0.0 % Normal 0.0-11.0 [facility] Comment on above: Performed By: #### B MPF, ACBC #### Testing performed at [address] [place] [address] Erythrocyte distribution width (RBC) [Ratio] 14.3 % Normal 11.5-14.5 [facility] Comment on above: Performed By: #### B MPF, ACBC #### Testing performed at [address] [place] [address] Hematocrit (Bld) [Volume fraction] 30.1 % Low 36.0-48.0 [facility] Comment on above: Performed By: #### B MPF, ACBC #### Testing performed at [address] [place] [address] Hemoglobin (Bld) [Mass/Vol] 10.3 g/dL Low 12.0-16.0 [facility] Comment on above: Performed By: #### B MPF, ACBC #### Testing performed at [address] [place] [address] Lymphocytes (Bld) [#/Vol] 0.4 10*3/uL Low 1.2-3.4 [facility] Comment on above: Performed By: #### B MPF, ACBC #### Testing performed at [address] [place] [address] Lymphocytes/100 WBC (Bld) 8.1 % Low 20.0-55.0 [facility] Comment on above: Performed By: #### B MPF, ACBC #### Testing performed at [address] [place] [address] MCH (RBC) [Entitic mass] 34.6 pg Normal 26.0-35.0 [facility] Comment on above: Performed By: #### B MPF, ACBC #### Testing performed at [address] [place] [address] MCHC (RBC) [Mass/Vol] 34.2 g/dL Normal 27.0-37.0 [facility] Comment on above: Performed By: #### B MPF, ACBC #### Testing performed at [address] [address] MCV (RBC) [Entitic vol] 101.3 fL High 80.0-100.0 [facility] Comment on above: Performed By: #### B MPF, ACBC #### Testing performed at [address] [address] Monocytes (Bld) [#/Vol] 0.4 10*3/uL Normal 0.0-0.7 [facility] Comment on above: Performed By: #### B MPF, ACBC #### Testing performed at [address] [address] Monocytes/100 WBC (Bld) 8.1 % Normal 0.0-10.0 [facility] Comment on above: Performed By: #### B MPF, ACBC #### Testing performed at [address] [address] Neutrophils/100 WBC (Bld) 83.7 % High 37.0-75.0 [facility] Comment on above: Performed By: #### B MPF, ACBC #### Testing performed at [address] [place] [address] Platelet mean volume (Bld) [Entitic vol] 7.3 fL Low 7.4-11.0 [facility] Comment on above: Performed By: #### B MPF, ACBC #### Testing performed at [address] [address] Platelets (Bld) [#/Vol] 181 10*3/uL Normal 130-400 [facility] Comment on above: Performed By: #### B MPF, ACBC #### Testing performed at [address] [address] RBC (Bld) [#/Vol] 2.97 10*6/uL Low 4.0-5.4 [facility] Comment on above: Performed By: #### B MPF, ACBC #### Testing performed at [address] [address] WBC (Bld) [#/Vol] 4.9 10*3/uL Normal 3.6-11.0 [facility] Comment on above: Performed By: #### B MPF, ACBC #### Testing performed at [address] [address] BMP FASTINGon 11-30-2023 Anion gap [Moles/Vol] 3 mmol/L Normal [facility] Comment on above: Performed By: #### A CBC, CMPF, PT #### Testing performed at [address] [address] Calcium [Mass/Vol] 7.7 mg/dL Low 8.4-10.2 [facility] Comment on above: Performed By: #### A CBC, CMPF, PT #### Testing performed at [address] [address] Chloride [Moles/Vol] 106 mmol/L Normal 98-107 [facility] Comment on above: Result Comment: Sriram arriaga note: Triglyceride levels of 600mg/dL or higher may positively bias chloride results by approximately 2.1 mmol Performed By: #### A CBC, CMPF, PT #### Testing performed at [address] [address] CO2 [Moles/Vol] 24 mmol/L Normal 22-30 [facility] Comment on above: Performed By: #### A CBC, CMPF, PT #### Testing performed at [address] [address] Creatinine [Mass/Vol] 0.60 mg/dL Low 0.70-1.20 [facility] Comment on above: Performed By: #### A CBC, CMPF, PT #### Testing performed at [address] [address] EST. GFR, 127 ml/min/1.73sq.m Normal [facility] Comment on above: Performed By: #### A CBC, CMPF, PT #### Testing performed at [address] [address] EST. GFR,Non 105 ml/min/1.73sq.m Normal [facility] Comment on above: Performed By: #### A CBC, CMPF, PT #### Testing performed at [address] [address] GFR Information Average GFR for 70+ years old = 75. Normal [facility] Comment on above: Result Comment: Natural Resource Manager arnie Kidney disease, GFR = <60. Kidney failure, GFR = <15. The GFR estimate is not adjusted for extreme body surface area or acute process, nor has it been validated for women or ethnic groups other than and . Performed By: #### A CBC, CMPF, PT #### Testing performed at [address] [address] Glucose [Mass/Vol] 111 mg/dL High 70-100 [facility] Comment on above: Result Comment: NORMAL <100 mg/dL PREDIABETES 101-126 mg/dL DIABETES 126 mg/dL or higher Performed By: #### A CBC, CMPF, PT #### Testing performed at [address] [address] Potassium [Moles/Vol] 3.6 mmol/L Normal 3.5-5.1 [facility] Comment on above: Performed By: #### A CBC, CMPF, PT #### Testing performed at [address] [address] Sodium [Moles/Vol] 133 mmol/L Low 137-145 [facility] Comment on above: Performed By: #### A CBC, CMPF, PT #### Testing performed at [address] [address] Urea nitrogen [Mass/Vol] 12 mg/dL Normal 7-20 [facility] Comment on above: Performed By: #### A CBC, CMPF, PT #### Testing performed at [address] [address] CBCon 11-30-2023 ABSOLUTE BAS 0.0 10*3/uL Normal 0.0-0.2 [facility] Comment on above: Performed By: #### A CBC, CMPF, PT #### Testing performed at [address] [place] [address] ABSOLUTE EOS 0.0 10*3/uL Normal 0.0-0.7 [facility] Comment on above: Performed By: #### A CBC, CMPF, PT #### Testing performed at [address] [place] [address] ABSOLUTE NEUTROPHIL COUNT 4.6 10*3/uL Normal 1.4-6.5 [facility] Comment on above: Performed By: #### A CBC, CMPF, PT #### Testing performed at [address] [place] [address] Basophils/100 WBC (Bld) 0.0 % Normal 0.0-2.0 [facility] Comment on above: Performed By: #### A CBC, CMPF, PT #### Testing performed at [address] [place] [address] DTYPE AUTO DIFF Normal [facility] Comment on above: Performed By: #### A CBC, CMPF, PT #### Testing performed at [address] [place] [address] Eosinophils/100 WBC (Bld) 0.0 % Normal 0.0-11.0 [facility] Comment on above: Performed By: #### A CBC, CMPF, PT #### Testing performed at [address] [place] [address] Lymphocytes (Bld) [#/Vol] 0.4 10*3/uL Low 1.2-3.4 [facility] Comment on above: Performed By: #### A CBC, CMPF, PT #### Testing performed at [address] [place] [address] Lymphocytes/100 WBC (Bld) 7.5 % Low 20.0-55.0 [facility] Comment on above: Performed By: #### A CBC, CMPF, PT #### Testing performed at [address] [place] [address] Monocytes (Bld) [#/Vol] 0.4 10*3/uL Normal 0.0-0.7 [facility] Comment on above: Performed By: #### A CBC, CMPF, PT #### Testing performed at [address] [address] Monocytes/100 WBC (Bld) 7.3 % Normal 0.0-10.0 [facility] Comment on above: Performed By: #### A CBC, CMPF, PT #### Testing performed at [address] [address] Neutrophils/100 WBC (Bld) 85.2 % High 37.0-75.0 [facility] Comment on above: Performed By: #### A CBC, CMPF, PT #### Testing performed at [address] [address] Erythrocyte distribution width (RBC) [Ratio] 14.2 % Normal 11.5-14.5 [facility] Comment on above: Performed By: #### A CBC, CMPF, PT #### Testing performed at [address] [address] Hematocrit (Bld) [Volume fraction] 30.2 % Low 36.0-48.0 [facility] Comment on above: Performed By: #### A CBC, CMPF, PT #### Testing performed at [address] [address] Hemoglobin (Bld) [Mass/Vol] 10.2 g/dL Low 12.0-16.0 [facility] Comment on above: Performed By: #### A CBC, CMPF, PT #### Testing performed at [address] [address] MCH (RBC) [Entitic mass] 34.1 pg Normal 26.0-35.0 [facility] Comment on above: Performed By: #### A CBC, CMPF, PT #### Testing performed at [address] [address] MCHC (RBC) [Mass/Vol] 33.7 g/dL Normal 27.0-37.0 [facility] Comment on above: Performed By: #### A CBC, CMPF, PT #### Testing performed at [address] [address] MCV (RBC) [Entitic vol] 101.3 fL High 80.0-100.0 [facility] Comment on above: Performed By: #### A CBC, CMPF, PT #### Testing performed at [address] [address] Platelet mean volume (Bld) [Entitic vol] 7.3 fL Low 7.4-11.0 [facility] Comment on above: Performed By: #### A CBC, CMPF, PT #### Testing performed at [address] [address] Platelets (Bld) [#/Vol] 180 10*3/uL Normal 130-400 [facility] Comment on above: Performed By: #### A CBC, CMPF, PT #### Testing performed at [address] [address] RBC (Bld) [#/Vol] 2.99 10*6/uL Low 4.0-5.4 [facility] Comment on above: Performed By: #### A CBC, CMPF, PT #### Testing performed at [address] [address] WBC (Bld) [#/Vol] 5.4 10*3/uL Normal 3.6-11.0 [facility] Comment on above: Performed By: #### A CBC, CMPF, PT #### Testing performed at [address] [address] ANAEROBIC CULTUREon 11-29-19 ANAEROBIC CULTURE SPECIMEN DESCRIPTION LEFT KNEE CULTURE NO GROWTH 5 DAYS * Result Note: Testing performed at [place] [address] * REPORT STATUS 12/04/2023 * Result Note: FINAL * Normal [facility] Comment on above: Performed By: #### A CBC, CMPF, PT #### Testing performed at [address] [address] TISSUE CULTUREon 11-29-2023 TISSUE CULTURE SPECIMEN DESCRIPTION LEFT KNEE GRAM SMEAR NO * Result Note: WBC'S SEEN * * Result Note: NO ORGANISMS SEEN * CULTURE NO GROWTH 5 DAYS * Result Note: Testing performed at [place] [address] * REPORT STATUS 12/04/2023 * Result Note: FINAL * Normal [facility] Comment on above: Performed By: #### A CBC, CMPF, PT #### Testing performed at [address] [address] TYPE AND SCREEN CROSSMATCH C ONVERTIBLEon 11-29-2023 TYPE AND SCREEN CROSSMATCH CONVERTIBLE UNITS ORDERED 2 WORKUP EXPIRES 12/02/2023,2359 ABO/RH(D) O POSITIVE ANTIBODY SCREEN NEGATIVE ARM BAND NUMBER [id number] UNIT NUMBER [id number] BLOOD COMPONENT TYPE LEUKORED RBC UNIT DIVISION 00 STATUS OF UNIT REL FROM ALLOC TRANSFUSION STATUS OK TO TRANSFUSE CROSSMATCH RESULT Electronically Compatible UNIT NUMBER [id number] BLOOD COMPONENT TYPE LEUKORED RBC UNIT DIVISION 00 STATUS OF UNIT REL FROM ALLOC TRANSFUSION STATUS OK TO TRANSFUSE CROSSMATCH RESULT Electronically Compatible Normal [facility] Comment on above: Performed By: #### A CBC, CMPF, PT #### Testing performed at [address] [address] WOUND CULTUREon 11-29-2023 WOUND CULTURE SPECIMEN DESCRIPTION LEFT KNEE GRAM SMEAR NO * Result Note: WBC'S SEEN * * Result Note: NO ORGANISMS SEEN * CULTURE NO GROWTH 5 DAYS * Result Note: Testing performed at [place] [address] * REPORT STATUS 12/04/2023 * Result Note: FINAL * Normal [facility] Comment on above: Performed By: #### A CBC, CMPF, PT #### Testing performed at [address] [address] XR KNEE LEFT 1-2 VIEWSon XR KNEE [...] other acute bony abnormality is seen. Normal [facility] CBCon 11-03-2023 ABSOLUTE BAS 0.0 10*3/uL Normal 0.0-0.2 [facility] Comment on above: Performed By: #### A CBC, CMPF, PT #### Testing performed at [address] [address] ABSOLUTE EOS 0.1 10*3/uL Normal 0.0-0.7 [facility] Comment on above: Performed By: #### A CBC, CMPF, PT #### Testing performed at [address] [address] ABSOLUTE NEUTROPHIL COUNT 2.6 10*3/uL Normal 1.4-6.5 [facility] Comment on above: Performed By: #### A CBC, CMPF, PT #### Testing performed at [address] [address] Basophils/100 WBC (Bld) 0.3 % Normal 0.0-2.0 [facility] Comment on above: Performed By: #### A CBC, CMPF, PT #### Testing performed at [address] [address] DTYPE AUTO DIFF Normal [facility] Comment on above: Performed By: #### A CBC, CMPF, PT #### Testing performed at [address] [address] Eosinophils/100 WBC (Bld) 1.8 % Normal 0.0-11.0 [facility] Comment on above: Performed By: #### A CBC, CMPF, PT #### Testing performed at [address] [address] Lymphocytes (Bld) [#/Vol] 0.4 10*3/uL Low 1.2-3.4 [facility] Comment on above: Performed By: #### A CBC, CMPF, PT #### Testing performed at [address] [address] Lymphocytes/100 WBC (Bld) 11.1 % Low 20.0-55.0 [facility] Comment on above: Performed By: #### A CBC, CMPF, PT #### Testing performed at [address] [address] Monocytes (Bld) [#/Vol] 0.4 10*3/uL Normal 0.0-0.7 [facility] Comment on above: Performed By: #### A CBC, CMPF, PT #### Testing performed at [address] [place] [address] Monocytes/100 WBC (Bld) 11.1 % High 0.0-10.0 [facility] Comment on above: Performed By: #### A CBC, CMPF, PT #### Testing performed at [address] [address] Neutrophils/100 WBC (Bld) 75.7 % High 37.0-75.0 [facility] Comment on above: Performed By: #### A CBC, CMPF, PT #### Testing performed at [address] [address] Erythrocyte distribution width (RBC) [Ratio] 14.5 % Normal 11.5-14.5 [facility] Comment on above: Performed By: #### A CBC, CMPF, PT #### Testing performed at [address] [address] Hematocrit (Bld) [Volume fraction] 34.7 % Low 36.0-48.0 [facility] Comment on above: Performed By: #### A CBC, CMPF, PT #### Testing performed at [address] [place] [address] Hemoglobin (Bld) [Mass/Vol] 11.3 g/dL Low 12.0-16.0 [facility] Comment on above: Performed By: #### A CBC, CMPF, PT #### Testing performed at [address] [place] [address] MCH (RBC) [Entitic mass] 33.4 pg Normal 26.0-35.0 [facility] Comment on above: Performed By: #### A CBC, CMPF, PT #### Testing performed at [address] [place] [address] MCHC (RBC) [Mass/Vol] 32.4 g/dL Normal 27.0-37.0 [facility] Comment on above: Performed By: #### A CBC, CMPF, PT #### Testing performed at [address] [place] [address] MCV (RBC) [Entitic vol] 103.1 fL High 80.0-100.0 [facility] Comment on above: Performed By: #### A CBC, CMPF, PT #### Testing performed at [address] [address] Platelet mean volume (Bld) [Entitic vol] 7.2 fL Low 7.4-11.0 [facility] Comment on above: Performed By: #### A CBC, CMPF, PT #### Testing performed at [address] [address] Platelets (Bld) [#/Vol] 175 10*3/uL Normal 130-400 [facility] Comment on above: Performed By: #### A CBC, CMPF, PT #### Testing performed at [address] [address] RBC (Bld) [#/Vol] 3.37 10*6/uL Low 4.0-5.4 [facility] Comment on above: Performed By: #### A CBC, CMPF, PT #### Testing performed at [address] [address] WBC (Bld) [#/Vol] 3.5 10*3/uL Low 3.6-11.0 [facility] Comment on above: Performed By: #### A CBC, CMPF, PT #### Testing performed at [address] [address] CBC, EDIF, PLATELETon 2022 ABSOLUTE BASOPHIL COUNT 0.0 10*3/uL 0.0 - 0.2 10*3/uL [facility] Basophils/100 WBC (Bld) 0.3 % 0.0 - 2.0 % [facility] Differential cell count method Nom (Bld) AUTO DIFF % [facility] Eosinophils (Bld) [#/Vol] 0.1 10*3/uL 0.0 - 0.7 10*3/uL [facility] Eosinophils/100 WBC (Bld) 1.8 % 0.0 - 11.0 % [facility] Erythrocyte distribution width (RBC) [Ratio] 14.5 % 11.5 - 14.5 % [facility] Hematocrit (Bld) [Volume fraction] 34.7 % Low 36.0 - 48.0 % [facility] Hemoglobin (Bld) [Mass/Vol] 11.3 g/dL Low [facility] Interpretation and review of laboratory results Abnormal [facility] Lymphocytes (Bld) [#/Vol] 0.4 10*3/uL Low 1.2 - 3.4 10*3/uL [facility] Lymphocytes/100 WBC (Bld) 11.1 % Low 20.0 - 55.0 % [facility] MCH (RBC) [Entitic mass] 33.4 pg 26.0 - 35.0 PG [facility] MCHC (RBC) [Mass/Vol] 32.4 g/dL [facility] MCV (RBC) [Entitic vol] 103.1 fL High [facility] Monocytes (Bld) [#/Vol] 0.4 10*3/uL 0.0 - 0.7 10*3/uL [facility] Monocytes/100 WBC (Bld) 11.1 % High 0.0 - 10.0 % [facility] Neutrophils (Bld) [#/Vol] 2.6 10*3/uL 1.4 - 6.5 10*3/uL [facility] Neutrophils/100 WBC (Bld) 75.7 % High 37.0 - 75.0 % [facility] Platelet mean volume (Bld) [Entitic vol] 7.2 fL Low [facility] Platelets (Bld) [#/Vol] 175 10*3/uL 130 - 400 10*3/uL [facility] RBC (Bld) [#/Vol] 3.37 10*6/uL Low 4.0 - 5.4 10*6/uL [facility] WBC (Bld) [#/Vol] 3.5 10*3/uL Low 3.6 - 11.0 10*3/uL [facility] CMP FASTINGon 11-03-2023 A:G RATIO 1.7 RATIO Normal [facility] Comment on above: Performed By: #### A CBC, CMPF, PT #### Testing performed at [address] [address] ALBUMIN 3.8 G/dl Normal 3.5-5.0 [facility] Comment on above: Performed By: #### A CBC, CMPF, PT #### Testing performed at [facility] [place] [facility] [address] [address] ALP [Catalytic activity/Vol] 61 U/L Normal 38-126 [facility] Comment on above: Performed By: #### A CBC, CMPF, PT #### Testing performed at [address] [address] ALT [Catalytic activity/Vol] 26 U/L Normal <35 [facility] Comment on above: Performed By: #### A CBC, CMPF, PT #### Testing performed at [address] [address] AST [Catalytic activity/Vol] 36 U/L Normal 14-36 [facility] Comment on above: Performed By: #### A CBC, CMPF, PT #### Testing performed at [address] [address] Bilirubin [Mass/Vol] 0.7 mg/dL Normal 0.2-1.3 [facility] Comment on above: Performed By: #### A CBC, CMPF, PT #### Testing performed at [address] [address] Calcium [Mass/Vol] 9.4 mg/dL Normal 8.4-10.2 [facility] Comment on above: Performed By: #### A CBC, CMPF, PT #### Testing performed at [address] [address] Chloride [Moles/Vol] 104 mmol/L Normal 98-107 [facility] Comment on above: Result Comment: Sriram arriaga note: Triglyceride levels of 600mg/dL or higher may positively bias chloride results by approximately 2.1 mmol Performed By: #### A CBC, CMPF, PT #### Testing performed at [address] [address] CO2 [Moles/Vol] 28 mmol/L Normal 22-30 [facility] Comment on above: Performed By: #### A CBC, CMPF, PT #### Testing performed at [address] [address] Creatinine [Mass/Vol] 0.60 mg/dL Low 0.70-1.20 [facility] Comment on above: Performed By: #### A CBC, CMPF, PT #### Testing performed at [address] [place] [address] EST. GFR, 127 ml/min/1.73sq.m Normal [facility] Comment on above: Performed By: #### A CBC, CMPF, PT #### Testing performed at [address] [address] EST. GFR,Non 105 ml/min/1.73sq.m Normal [facility] Comment on above: Performed By: #### A CBC, CMPF, PT #### Testing performed at [address] [address] GFR Information Average GFR for 70+ years old = 75. Normal [facility] Comment on above: Result Comment: Natural Resource Manager arnie Kidney disease, GFR = <60. Kidney failure, GFR = <15. The GFR estimate is not adjusted for extreme body surface area or acute process, nor has it been validated for women or ethnic groups other than and . Performed By: #### A CBC, CMPF, PT #### Testing performed at [address] [address] Glucose [Mass/Vol] 91 mg/dL Normal 70-100 [facility] Comment on above: Result Comment: NORMAL <100 mg/dL PREDIABETES 101-126 mg/dL DIABETES 126 mg/dL or higher Performed By: #### A CBC, CMPF, PT #### Testing performed at [address] [address] Potassium [Moles/Vol] 3.9 mmol/L Normal 3.5-5.1 [facility] Comment on above: Performed By: #### A CBC, CMPF, PT #### Testing performed at [address] [address] Protein [Mass/Vol] 6.1 g/dL Low 6.3-8.2 [facility] Comment on above: Performed By: #### A CBC, CMPF, PT #### Testing performed at [address] [address] Sodium [Moles/Vol] 135 mmol/L Low 137-145 [facility] Comment on above: Performed By: #### A CBC, CMPF, PT #### Testing performed at [address] [address] Urea nitrogen [Mass/Vol] 12 mg/dL Normal 7-20 [facility] Comment on above: Performed By: #### A CBC, CMPF, PT #### Testing performed at [address] [address] COMPREHENSIVE METABOLIC PANE Adolph 11-03-2023 Albumin [Mass/Vol] 3.8 G/dl 3.5 - 5.0 G/dl [facility] Albumin/Globulin [Mass ratio] 1.7 {ratio} RATIO [facility] ALP [Catalytic activity/Vol] 61 U/L [facility] ALT [Catalytic activity/Vol] 26 U/L NINF [facility] AST [Catalytic activity/Vol] 36 U/L [facility] Bilirubin [Mass/Vol] 0.7 mg/dL [facility] Calcium [Mass/Vol] 9.4 mg/dL [facility] Chloride [Moles/Vol] 104 mmol/L [facility] Comment on above: Please note: Triglyc eride levels of 600mg/dL or higher may positively bias chloride results by approximately 2.1 mmol CO2 [Moles/Vol] 28 mmol/L [facility] Creatinine [Mass/Vol] 0.60 mg/dL Low [facility] GFR COMMENT Average GFR for 70+ years old = 75. [facility] Comment on above: Chronic Kidney disea se, GFR = <60. Kidney failure, GFR = <15. The GFR estimate is not adjusted for extreme body surface area or acute process, nor has it been validated for women or ethnic groups other than and . GFR/1.73 sq M.predicted among blacks MDRD (S/P/Bld) [Vol rate/Area] 127 mL/min/{1.73_m2} ml/min/1.73sq .m [facility] GFR/1.73 sq M.predicted among non-blacks MDRD (S/P/Bld) [Vol rate/Area] 105 mL/min/{1.73_m2} ml/min/1.73sq .m [facility] Glucose post fast [Mass/Vol] 91 mg/dL [facility] Comment on above: NORMAL <100 mg/dL PREDIABETES 101-126 mg/dL DIABETES 126 mg/dL or higher Interpretation and review of laboratory results Abnormal [facility] Potassium [Moles/Vol] 3.9 mmol/L [facility] Protein [Mass/Vol] 6.1 g/dL Low [facility] Sodium [Moles/Vol] 135 mmol/L Low [facility] Urea nitrogen [Mass/Vol] 12 mg/dL [facility] ECGOrdered By: Delgado da silva on 11-03-2023 [facility] Work Phone: [email or web address] A1Con 11-03-2023 Glucose [Mass/Vol] 100 mg/dL [facility] HbA1c (Bld) [Mass fraction] 5.1 % 0 - 6 % [facility] Comment on above: NORMAL <5.7% PREDIABETES 5.7-6.4% DIABETES 6.5% OR HIGHER [facility] Glucose [Mass/Vol] 100 mg/dL Normal [facility] Comment on above: Performed By: #### A CBC, CMPF, PT #### Testing performed at [address] [address] HbA1c (Bld) [Mass fraction] 5.1 % Normal 0-6 [facility] Comment on above: Result Comment: NORMAL <5.7% PREDIABETES 5.7-6.4% DIABETES 6.5% OR HIGHER Performed By: #### A CBC, CMPF, PT #### Testing performed at [address] [address] MRSA SCREENon 11-03-2023 MRSA DNA NOHELIA+probe Ql (Unsp spec) Negative Normal NEGATIVE [facility] Comment on above: Performed By: #### M RSAST #### Testing performed at [address] [address] STAPH AUREUS SCREEN Negative Normal NEGATIVE [facility] Comment on above: Result Comment: TEST ING PERFORMED BY PCR Performed By: #### M RSAST #### Testing performed at [address] [address] PROTIMEon 11-03-2023 INR Coag (PPP) [Relative time] 0.94 {INR} Normal 0.85-1.10 [facility] Comment on above: Result Comment: 2.0-3.0 THERAPEUTIC RANGE 2.5-3.5 MECHANICAL VALVE RANGE Performed By: #### A CBC, CMPF, PT #### Testing performed at [address] [address] PT Coag (PPP) [Time] 12.7 s Normal 11.8-14.4 [facility] Comment on above: Performed By: #### A CBC, CMPF, PT #### Testing performed at [address] [place] [address] PROTIME-INRon 11-03-2023 INR Coag (PPP) [Relative time] 0.94 {INR} 0.85 - 1.10 [facility] Comment on above: 2.0-3.0 THERAPEUTIC RANGE 2.5-3.5 MECHANICAL VALVE RANGE PT Coag (PPP) [Time] 12.7 s [facility] SCREEN: MRSA ONLY, NARES (IS OLATION SCREEN)on 11-03-2023 MRSA isol Org specific cx Ql (Nose) Negative NEGATIVE [facility] STAPHYOCOCCUS AUREUS BY PCR Negative NEGATIVE [facility] Comment on above: TESTING PERFORMED BY PCR [facility] URINALYSIS, MACROon 11-03-20 23 Bilirubin Ql (U) Negative NEGATIVE [facility] Clarity (U) CLEAR CLEAR [facility] Color (U) YELLOW YELLOW [facility] Glucose Test strip (U) [Mass/Vol] Negative NEGATIVE mg/dl [facility] Hemoglobin Ql (U) Negative NEGATIVE [facility] Ketones (U) [Mass/Vol] Negative NEGATIVE mg/dl [facility] Leukocyte esterase Test strip Ql (U) Negative NEGATIVE [facility] Nitrite Ql (U) Negative NEGATIVE [facility] pH (U) 7.0 [pH] 5.0 - 7.0 [facility] Protein Ql (U) Negative NEGATIVE mg/dl [facility] Specific gravity (U) [Rel density] 1.015 1.010 - 1.025 [facility] Urobilinogen (U) [Mass/Vol] 0.2 mg/dL [facility] URINE MACROSCOPICon 11-03-20 23 Bilirubin Ql (U) Negative Normal NEGATIVE [facility] Comment on above: Performed By: #### U MAC #### Testing performed at [address] [place] [address] Clarity (U) CLEAR Normal CLEAR [facility] Comment on above: Performed By: #### U MAC #### Testing performed at [address] [place] [address] Color (U) YELLOW Normal YELLOW [facility] Comment on above: Performed By: #### U MAC #### Testing performed at [address] [address] Glucose Ql (U) Negative Normal NEGATIVE [facility] Comment on above: Performed By: #### U MAC #### Testing performed at [address] [address] pH (U) 7.0 [pH] Normal 5.0-7.0 [facility] Comment on above: Performed By: #### U MAC #### Testing performed at [address] [address] URINE HEMOGLOBIN Negative Normal NEGATIVE [facility] Comment on above: Performed By: #### U MAC #### Testing performed at [address] [place] [address] URINE KETONE Negative Normal NEGATIVE [facility] Comment on above: Performed By: #### U MAC #### Testing performed at [address] [place] [address] URINE LEUKOTEST Negative Normal NEGATIVE [facility] Comment on above: Performed By: #### U MAC #### Testing performed at [address] [place] [address] URINE NITRATES Negative Normal NEGATIVE [facility] Comment on above: Performed By: #### U MAC #### Testing performed at [address] [place] [address] URINE SPEC GRAVITY 1.015 Normal 1.010-1.025 [facility] Comment on above: Performed By: #### U MAC #### Testing performed at [address] [place] [address] URINE TOTAL PROTEIN Negative Normal NEGATIVE [facility] Comment on above: Performed By: #### U MAC #### Testing performed at [address] [address] Urobilinogen Qn (U) 0.2 {Flaquita'U}/dL Normal 0.2-1.0 [facility] Comment on above: Performed By: #### U MAC #### Testing performed at [facility] [address] [place] [address] C3 and C4 COMPLEMENTon 02-09 Complement C3, Serum 140 mg/dL Normal 82-167 [facility] Comment on above: Performed By: #### L IVER, LIPID, TSH, FT3, T4 #### [facility] [address] [place] [address] Dr. Frank Hills Complement C4, Serum 36 mg/dL Normal 12-38 [facility] Comment on above: Performed By: #### L IVER, LIPID, TSH, FT3, T4 #### [facility] [address] [place] [address] Dr. Frank Hills COMPLEMENT TOTAL (CH50)on Complement, Total (CH50) >60 Normal >41 [facility] Comment on above: Result Comment: Age [...] values. Performed By: #### C H50T #### [facility] [address] [place] [address] Dr. Frank Hills CBC AUTO DIFFon 02-08-2023 BASO # 0.0 103/ul Normal 0.0-0.1 [facility] Comment on above: Performed By: #### C BC #### [facility] [address] [place] [address] Dr. Frank Hills Basophils/100 WBC (Bld) 0.3 % Normal 0.2-2.0 [facility] Comment on above: Performed By: #### C BC #### [facility] [address] [place] [address] Dr. Frank Hills EO # 0.1 103/ul Normal 0.0-0.7 [facility] Comment on above: Performed By: #### C BC #### [facility] [address] [place] [address] Dr. Frank Hills Eosinophils/100 WBC (Bld) 1.6 % Normal 0.9-7.0 [facility] Comment on above: Performed By: #### C BC #### [facility] [address] [place] [address] Dr. Frank Hills Erythrocyte distribution width (RBC) [Ratio] 13.6 % Normal 11.0-15.0 [facility] Comment on above: Performed By: #### C BC #### [facility] [address] [place] [address] Dr. Frank Hills Hematocrit (Bld) [Volume fraction] 36.4 % Normal 36.0-48.0 [facility] Comment on above: Performed By: #### C BC #### [facility] [address] [place] [address] Dr. Frank Hills Hemoglobin (Bld) [Mass/Vol] 11.8 g/dL Critically low 12.0-16.0 [facility] Comment on above: Performed By: #### C BC #### [facility] [address] [place] [address] Dr. Frank Hills IG # 0.01 10e3/ul Normal 0.00-0.03 [facility] Comment on above: Performed By: #### C BC #### [facility] [address] [place] [address] Dr. Frank Hills IG % 0.3 % Normal 0.0-0.5 [facility] Comment on above: Performed By: #### C BC #### [facility] [address] [place] [address] Dr. Frank Hills LYMPH # 0.6 103/ul Critically low 1.2-3.8 [facility] Comment on above: Performed By: #### C BC #### [facility] [address] [place] [address] Dr. Frank Hills Lymphocytes/100 WBC (Bld) 15.3 % Critically low 20.5-60.0 [facility] Comment on above: Performed By: #### C BC #### [facility] [address] [place] [address] Dr. Frank Hills MANUAL DIFF REQ NO Normal [facility] Comment on above: Performed By: #### C BC #### [facility] [address] [place] [address] Dr. Frank Hills MCH (RBC) [Entitic mass] 33.2 pg Normal 26.7-34.0 [facility] Comment on above: Performed By: #### C BC #### [facility] [address] [place] [address] Dr. Frank Hills MCHC (RBC) [Mass/Vol] 32.4 g/dL Normal 29.9-35.2 [facility] Comment on above: Performed By: #### C BC #### [facility] [address] [place] [address] Dr. Frank Hills MCV (RBC) [Entitic vol] 102.5 fL Critically high 81.0-99.0 [facility] Comment on above: Performed By: #### C BC #### [facility] [address] [place] [address] Dr. Frank Hills MONO # 0.5 103/ul Normal 0.3-0.8 [facility] Comment on above: Performed By: #### C BC #### [facility] [address] [place] [address] Dr. Frank Hills Monocytes/100 WBC (Bld) 12.5 % Critically high 1.7-12.0 [facility] Comment on above: Performed By: #### C BC #### [facility] [address] [place] [address] Dr. Frank Hills NEUT # 2.6 103/ul Normal 1.4-6.5 [facility] Comment on above: Performed By: #### C BC #### [facility] [address] [place] [address] Dr. Frank Hills Neutrophils/100 WBC (Bld) 70.0 % Normal 43.0-75.0 [facility] Comment on above: Performed By: #### C BC #### [facility] [address] [address] [address] Frank Hills Platelet mean volume (Bld) [Entitic vol] 9.0 fL Critically low 9.5-13.5 [facility] Comment on above: Performed By: #### C BC #### [facility] [address] [address] [address] Frank Hills PLT 192 103/ul Normal 150-450 [facility] Comment on above: Performed By: #### C BC #### [facility] [address] [address] [address] Frank Hills RBC 3.55 106/ul Critically low 4.20-5.40 [facility] Comment on above: Performed By: #### C BC #### [facility] [address] [place] [address] Dr. Frank Hills WBC 3.7 103/ul Critically low 4.0-11.0 [facility] Comment on above: Performed By: #### C BC #### [facility] [address] [place] [address] Dr. Frank Hills PROF 14(COMP METB)on 023 Albumin [Mass/Vol] 3.7 g/dL Normal 3.4-5.0 [facility] Comment on above: Performed By: #### L IVER, LIPID, TSH, FT3, T4 #### [facility] [address] [place] [address] Dr. Frank Hills Albumin/Globulin [Mass ratio] 1.2 {ratio} Normal [facility] Comment on above: Performed By: #### L IVER, LIPID, TSH, FT3, T4 #### [facility] [address] [place] [address] Dr. Frank Hills ALP [Catalytic activity/Vol] 66 U/L Normal 46-116 [facility] Comment on above: Performed By: #### L IVER, LIPID, TSH, FT3, T4 #### [facility] [address] [address] [address] Frank Hills ALT [Catalytic activity/Vol] 29 U/L Normal 14-59 [facility] Comment on above: Performed By: #### L IVER, LIPID, TSH, FT3, T4 #### [facility] [address] [place] [address] Dr. Frank Hills Anion gap [Moles/Vol] 11.6 mmol/L Normal [facility] Comment on above: Performed By: #### L IVER, LIPID, TSH, FT3, T4 #### [facility] [address] [place] [address] Dr. Frank Hills AST [Catalytic activity/Vol] 27 U/L Normal 15-37 [facility] Comment on above: Performed By: #### L IVER, LIPID, TSH, FT3, T4 #### [facility] [address] [place] [address] Dr. Frank Hills Bilirubin [Mass/Vol] 0.7 mg/dL Normal 0.2-1.0 [facility] Comment on above: Performed By: #### L IVER, LIPID, TSH, FT3, T4 #### [facility] [address] [place] [address] Dr. Frank Hills Calcium [Mass/Vol] 9.1 mg/dL Normal 8.5-10.1 [facility] Comment on above: Performed By: #### L IVER, LIPID, TSH, FT3, T4 #### [facility] [address] [place] [address] Dr. Frank Hills Chloride [Moles/Vol] 105 mmol/L Normal 98-107 [facility] Comment on above: Performed By: #### L IVER, LIPID, TSH, FT3, T4 #### [facility] [address] [place] [address] Dr. Frank Hills CO2 [Moles/Vol] 29.5 mmol/L Normal 21.0-32.0 [facility] Comment on above: Performed By: #### L IVER, LIPID, TSH, FT3, T4 #### [facility] [address] [place] [address] Dr. Frank Hills Creatinine [Mass/Vol] 0.57 mg/dL Normal 0.55-1.02 [facility] Comment on above: Performed By: #### L IVER, LIPID, TSH, FT3, T4 #### [facility] [address] [address] [address] Frank Hills EGFR-AF [place]I >60 Normal >=60 [facility] Comment on above: Performed By: #### L IVER, LIPID, TSH, FT3, T4 #### [facility] [address] [address] [address] Frank Hills EGFR-NON AF [place] >60 Normal >=60 [facility] Comment on above: Performed By: #### L IVER, LIPID, TSH, FT3, T4 #### [facility] [address] [place] [address] Dr. Frank Hills Globulin (S) [Mass/Vol] 3.1 g/dL Normal [facility] Comment on above: Performed By: #### L IVER, LIPID, TSH, FT3, T4 #### [facility] [address] [address] [address] Frank Hills Glucose [Mass/Vol] 95 mg/dL Normal 74-106 [facility] Comment on above: Performed By: #### L IVER, LIPID, TSH, FT3, T4 #### [facility] [address] [address] [address] Frank Hills Potassium [Moles/Vol] 5.1 mmol/L Normal 3.5-5.1 [facility] Comment on above: Performed By: #### L IVER, LIPID, TSH, FT3, T4 #### [facility] [address] [address] [address] Frank Hills Protein [Mass/Vol] 6.8 g/dL Normal 6.4-8.2 [facility] Comment on above: Performed By: #### L IVER, LIPID, TSH, FT3, T4 #### [facility] [address] [address] [address] Frank Hills Sodium [Moles/Vol] 141 mmol/L Normal 136-145 [facility] Comment on above: Performed By: #### L IVER, LIPID, TSH, FT3, T4 #### [facility] [address] [place] [address] Dr. Frank Hills Urea nitrogen [Mass/Vol] 13.0 mg/dL Normal 7.0-18.0 [facility] Comment on above: Performed By: #### L IVER, LIPID, TSH, FT3, T4 #### [facility] [address] [place] [address] Dr. Frank Hills Urea nitrogen/Creatinine [Mass ratio] 22.8 mg/mg Normal [facility] Comment on above: Performed By: #### L IVER, LIPID, TSH, FT3, T4 #### [facility] [address] [place] [address] Dr. Frank Hills SED RATE WESTERGRENon 2022 SED RATE 9 mm/hr Normal <=30 [facility] Comment on above: Performed By: #### L IVER, LIPID, TSH, FT3, T4 #### [facility] [address] [place] [address] Dr. Frank Hills UA RANDOM W/MICROSCOPICon BACTERIA NONE SEEN Normal NONE SEEN [facility] Comment on above: Performed By: #### L IVER, LIPID, TSH, FT3, T4 #### [facility] [address] [place] [address] Dr. Frank Hills Bilirubin Ql (U) Negative Normal NEGATIVE [facility] Comment on above: Performed By: #### L IVER, LIPID, TSH, FT3, T4 #### [facility] [address] [place] [address] Dr. Frank Hills CAST NONE SEEN Normal NONE SEEN [facility] Comment on above: Performed By: #### L IVER, LIPID, TSH, FT3, T4 #### [facility] [address] [place] [address] Dr. Frank Hills Clarity (U) CLEAR Normal CLEAR [facility] Comment on above: Performed By: #### L IVER, LIPID, TSH, FT3, T4 #### [facility] [address] [address] [address] Frank Hills Color (U) LT. YELLOW Normal YELLOW [facility] Comment on above: Performed By: #### L IVER, LIPID, TSH, FT3, T4 #### [facility] [address] [address] [address] Frank Hills Crystals LM Nom (Urine sed) NONE SEEN Normal NONE SEEN [facility] Comment on above: Performed By: #### L IVER, LIPID, TSH, FT3, T4 #### [facility] [address] [address] [address] Frank Hills Epithelial cells LM Ql (Urine sed) RARE Normal NONE SEEN /RARE [facility] Comment on above: Performed By: #### L IVER, LIPID, TSH, FT3, T4 #### [facility] [address] [place] [address] Dr. Frank Hills Glucose Ql (U) Negative Normal NEGATIVE [facility] Comment on above: Performed By: #### L IVER, LIPID, TSH, FT3, T4 #### [facility] [address] [address] [address] Frank Hills Hemoglobin Ql (U) Negative Normal NEGATIVE [facility] Comment on above: Performed By: #### L IVER, LIPID, TSH, FT3, T4 #### [facility] [address] [address] [address] Frank Hills Ketones Ql (U) Negative Normal NEGATIVE [facility] Comment on above: Performed By: #### L IVER, LIPID, TSH, FT3, T4 #### [facility] [address] [address] [address] Frank Hills LEUKOCYTES Negative Normal NEGATIVE [facility] Comment on above: Performed By: #### L IVER, LIPID, TSH, FT3, T4 #### [facility] [address] [address] [address] Frank Hills MUCOUS NONE SEEN Normal NONE SEEN [facility] Comment on above: Performed By: #### L IVER, LIPID, TSH, FT3, T4 #### [facility] [address] [address] [address] Frank Hills Nitrite Ql (U) Negative Normal NEGATIVE [facility] Comment on above: Performed By: #### L IVER, LIPID, TSH, FT3, T4 #### [facility] [address] [address] [address] Frank Hills pH (U) 6.5 [pH] Normal 5-9 [facility] Comment on above: Performed By: #### L IVER, LIPID, TSH, FT3, T4 #### [facility] [address] [address] [address] Frank Hills RBC NONE SEEN Abnormal 0-2 [facility] Comment on above: Performed By: #### L IVER, LIPID, TSH, FT3, T4 #### [facility] [address] [place] [address] Dr. Frank Hills SPEC GRAVITY 1.020 Normal 1.005-<=1.025 [facility] Comment on above: Performed By: #### L IVER, LIPID, TSH, FT3, T4 #### [facility] [address] [address] [address] Frank Hills UA PROTEIN Negative Normal NEGATIVE/ TRACE [facility] Comment on above: Performed By: #### L IVER, LIPID, TSH, FT3, T4 #### [facility] [address] [place] [address] Dr. Frank Hills Urobilinogen Qn (U) 0.2 {Flaquita'U}/dL Normal 0.2 - 1. 0 [facility] Comment on above: Performed By: #### L IVER, LIPID, TSH, FT3, T4 #### [facility] [address] [address] [address] Frank Hills WBC NONE SEEN Normal NONE SEEN [facility] Comment on above: Performed By: #### L IVER, LIPID, TSH, FT3, T4 #### [facility] [address] [place] [address] Dr. Frank Hills C3 and C4 COMPLEMENTon 11-04 Complement C3, Serum 132 mg/dL Normal 82-167 [facility] Comment on above: Performed By: #### L IVER, LIPID, TSH, FT3, T4 #### [facility] [address] [place] [address] Dr. Frank Hills Complement C4, Serum 33 mg/dL Normal 12-38 [facility] Comment on above: Performed By: #### L IVER, LIPID, TSH, FT3, T4 #### [facility] [address] [place] [address] Dr. Frank Hills COMPLEMENT TOTAL (CH50)on Complement, Total (CH50) >60 Normal >41 [facility] Comment on above: Result Comment: Age [...] L IVER, LIPID, TSH, FT3, T4 #### [facility] [address] [place] [address] Dr. Frank Hlils CBC AUTO DIFFon 11-03-2022 BASO # 0.0 103/ul Normal 0.0-0.1 [facility] Comment on above: Performed By: #### L IVER, LIPID, TSH, FT3, T4 #### [facility] [address] [address] [address] Frank Hills Basophils/100 WBC (Bld) 1.0 % Normal 0.2-2.0 [facility] Comment on above: Performed By: #### L IVER, LIPID, TSH, FT3, T4 #### [facility] [address] [place] [address] Dr. Frank Hills EO # 0.1 103/ul Normal 0.0-0.7 [facility] Comment on above: Performed By: #### L IVER, LIPID, TSH, FT3, T4 #### [facility] [address] [place] [address] Dr. Frank Hills Eosinophils/100 WBC (Bld) 1.8 % Normal 0.9-7.0 [facility] Comment on above: Performed By: #### L IVER, LIPID, TSH, FT3, T4 #### [facility] [address] [address] [address] Frank Hills Erythrocyte distribution width (RBC) [Ratio] 13.8 % Normal 11.0-15.0 [facility] Comment on above: Performed By: #### L IVER, LIPID, TSH, FT3, T4 #### [facility] [address] [address] [address] Frank Hills Hematocrit (Bld) [Volume fraction] 36.3 % Normal 36.0-48.0 [facility] Comment on above: Performed By: #### L IVER, LIPID, TSH, FT3, T4 #### [facility] [address] [place] [address] Dr. Frank Hills Hemoglobin (Bld) [Mass/Vol] 11.9 g/dL Critically low 12.0-16.0 [facility] Comment on above: Performed By: #### L IVER, LIPID, TSH, FT3, T4 #### [facility] [address] [place] [address] Dr. Frank Hills IG # 0.02 10e3/ul Normal 0.00-0.03 [facility] Comment on above: Performed By: #### L IVER, LIPID, TSH, FT3, T4 #### [facility] [address] [place] [address] Dr. Frank Hills IG % 0.5 % Normal 0.0-0.5 [facility] Comment on above: Performed By: #### L IVER, LIPID, TSH, FT3, T4 #### [facility] [address] [place] [address] Dr. Frank Hills LYMPH # 0.7 103/ul Critically low 1.2-3.8 [facility] Comment on above: Performed By: #### L IVER, LIPID, TSH, FT3, T4 #### [facility] [address] [address] [address] Frank Hills Lymphocytes/100 WBC (Bld) 18.0 % Critically low 20.5-60.0 [facility] Comment on above: Performed By: #### L IVER, LIPID, TSH, FT3, T4 #### [facility] [address] [address] [address] Frank Hills MANUAL DIFF REQ NO Normal [facility] Comment on above: Performed By: #### L IVER, LIPID, TSH, FT3, T4 #### [facility] [address] [place] [address] Dr. Frank Hills MCH (RBC) [Entitic mass] 34.2 pg Critically high 26.7-34.0 [facility] Comment on above: Performed By: #### L IVER, LIPID, TSH, FT3, T4 #### [facility] [address] [place] [address] Dr. Frank Hills MCHC (RBC) [Mass/Vol] 32.8 g/dL Normal 29.9-35.2 [facility] Comment on above: Performed By: #### L IVER, LIPID, TSH, FT3, T4 #### [facility] [address] [place] [address] Dr. Frank Hills MCV (RBC) [Entitic vol] 104.3 fL Critically high 81.0-99.0 [facility] Comment on above: Performed By: #### L IVER, LIPID, TSH, FT3, T4 #### [facility] [address] [place] [address] Dr. Frank Hills MONO # 0.4 103/ul Normal 0.3-0.8 [facility] Comment on above: Performed By: #### L IVER, LIPID, TSH, FT3, T4 #### [facility] [address] [place] [address] Dr. Frank Hills Monocytes/100 WBC (Bld) 10.0 % Normal 1.7-12.0 [facility] Comment on above: Performed By: #### L IVER, LIPID, TSH, FT3, T4 #### [facility] [address] [place] [address] Dr. Frank Hills NEUT # 2.7 103/ul Normal 1.4-6.5 [facility] Comment on above: Performed By: #### L IVER, LIPID, TSH, FT3, T4 #### [facility] [address] [place] [address] Dr. Frank Hills Neutrophils/100 WBC (Bld) 68.7 % Normal 43.0-75.0 [facility] Comment on above: Performed By: #### L IVER, LIPID, TSH, FT3, T4 #### [facility] [address] [address] [address] Frank Hills Platelet mean volume (Bld) [Entitic vol] 9.4 fL Critically low 9.5-13.5 [facility] Comment on above: Performed By: #### L IVER, LIPID, TSH, FT3, T4 #### [facility] [address] [place] [address] Dr. Frank Hills PLT 187 103/ul Normal 150-450 [facility] Comment on above: Performed By: #### L IVER, LIPID, TSH, FT3, T4 #### [facility] [address] [place] [address] Dr. Frank Hilsl RBC 3.48 106/ul Critically low 4.20-5.40 [facility] Comment on above: Performed By: #### L IVER, LIPID, TSH, FT3, T4 #### [facility] [address] [place] [address] Dr. Frank Hills WBC 3.9 103/ul Critically low 4.0-11.[address] [facility] Comment on above: Performed By: #### L IVER, LIPID, TSH, FT3, T4 #### [facility] [address] [place] [address] Dr. Frank Hills PROF 14(COMP METB)on 022 Albumin [Mass/Vol] 3.9 g/dL Normal 3.4-5.0 [facility] Comment on above: Performed By: #### L IVER, LIPID, TSH, FT3, T4 #### [facility] Laboratory [address] [place] [address] Dr. Frank Hills Albumin/Globulin [Mass ratio] 1.3 {ratio} Normal [facility] Comment on above: Performed By: #### L IVER, LIPID, TSH, FT3, T4 #### [facility] [address] [place] [address] Dr. Frank Hills ALP [Catalytic activity/Vol] 63 U/L Normal 46-116 [facility] Comment on above: Performed By: #### L IVER, LIPID, TSH, FT3, T4 #### [facility] [address] [place] [address] Dr. Frank Hills ALT [Catalytic activity/Vol] 27 U/L Normal 14-59 [facility] Comment on above: Performed By: #### L IVER, LIPID, TSH, FT3, T4 #### [facility] [address] [place] [address] Dr. Frank Hills Anion gap [Moles/Vol] 8.4 mmol/L Normal [facility] Comment on above: Performed By: #### L IVER, LIPID, TSH, FT3, T4 #### [facility] [address] [place] [address] Dr. Frank Hills AST [Catalytic activity/Vol] 31 U/L Normal 15-37 [facility] Comment on above: Performed By: #### L IVER, LIPID, TSH, FT3, T4 #### [facility] [address] [place] [address] Dr. Frank Hills Bilirubin [Mass/Vol] 0.7 mg/dL Normal 0.2-1.0 [facility] Comment on above: Performed By: #### L IVER, LIPID, TSH, FT3, T4 #### [facility] [address] [place] [address] Dr. Frank Hills Calcium [Mass/Vol] 9.0 mg/dL Normal 8.5-10.1 [facility] Comment on above: Performed By: #### L IVER, LIPID, TSH, FT3, T4 #### [facility] [address] [address] [address] Frank Hills Chloride [Moles/Vol] 102 mmol/L Normal 98-107 [facility] Comment on above: Performed By: #### L IVER, LIPID, TSH, FT3, T4 #### [facility] [address] [address] [address] Frank Hills CO2 [Moles/Vol] 30.8 mmol/L Normal 21.0-32.0 [facility] Comment on above: Performed By: #### L IVER, LIPID, TSH, FT3, T4 #### [facility] [address] [place] [address] Dr. Frank Hills Creatinine [Mass/Vol] 0.62 mg/dL Normal 0.55-1.02 [facility] Comment on above: Performed By: #### L IVER, LIPID, TSH, FT3, T4 #### [facility] [address] [place] [address] Dr. Frank Hills EGFR-AF [place]I >60 Normal >=60 [facility] Comment on above: Performed By: #### L IVER, LIPID, TSH, FT3, T4 #### [facility] [address] [place] [address] Dr. Frank Hills EGFR-NON AF [place] >60 Normal >=60 [facility] Comment on above: Performed By: #### L IVER, LIPID, TSH, FT3, T4 #### [facility] [address] [address] [address] Frank Hills Globulin (S) [Mass/Vol] 3.1 g/dL Normal [facility] Comment on above: Performed By: #### L IVER, LIPID, TSH, FT3, T4 #### [facility] [address] [address] [address] Frank Hills Glucose [Mass/Vol] 102 mg/dL Normal 74-106 [facility] Comment on above: Performed By: #### L IVER, LIPID, TSH, FT3, T4 #### [facility] [address] [address] [address] Frank Hills Potassium [Moles/Vol] 4.2 mmol/L Normal 3.5-5.1 [facility] Comment on above: Performed By: #### L IVER, LIPID, TSH, FT3, T4 #### [facility] [address] [place] [address] Dr. Frank Hills Protein [Mass/Vol] 7.0 g/dL Normal 6.4-8.2 [facility] Comment on above: Performed By: #### L IVER, LIPID, TSH, FT3, T4 #### [facility] [address] [place] [address] Dr. Frank Hills Sodium [Moles/Vol] 137 mmol/L Normal 136-145 [facility] Comment on above: Performed By: #### L IVER, LIPID, TSH, FT3, T4 #### [facility] [address] [place] [address] Dr. Frank Hills Urea nitrogen [Mass/Vol] 15.0 mg/dL Normal 7.0-18.0 [facility] Comment on above: Performed By: #### L IVER, LIPID, TSH, FT3, T4 #### [facility] [address] [place] [address] Dr. Frank Hills Urea nitrogen/Creatinine [Mass ratio] 24.2 mg/mg Normal [facility] Comment on above: Performed By: #### L IVER, LIPID, TSH, FT3, T4 #### [facility] [address] [place] [address] Dr. Frank Hills SED RATE [facility] 2021 SED RATE 8 mm/hr Normal <=30 [facility] Comment on above: Performed By: #### L IVER, LIPID, TSH, FT3, T4 #### [facility] [address] [place] [address] Dr. Frank Hills UA RANDOM W/MICROSCOPICon BACTERIA NONE SEEN Normal NONE SEEN [facility] Comment on above: Performed By: #### L IVER, LIPID, TSH, FT3, T4 #### [facility] [address] [place] [address] Dr. Frank Hills Bilirubin Ql (U) Negative Normal NEGATIVE [facility] Comment on above: Performed By: #### L IVER, LIPID, TSH, FT3, T4 #### [facility] [address] [place] [address] Dr. Frank Hills CAST NONE SEEN Normal NONE SEEN [facility] Comment on above: Performed By: #### L IVER, LIPID, TSH, FT3, T4 #### [facility] [address] [address] [address] Frank Hills Clarity (U) CLEAR Normal CLEAR [facility] Comment on above: Performed By: #### L IVER, LIPID, TSH, FT3, T4 #### [facility] [address] [place] [address] Dr. Frank Hills Color (U) LT. YELLOW Normal YELLOW [facility] Comment on above: Performed By: #### L IVER, LIPID, TSH, FT3, T4 #### [facility] [address] [place] [address] Dr. Frank Hills Crystals LM Nom (Urine sed) NONE SEEN Normal NONE SEEN [facility] Comment on above: Performed By: #### L IVER, LIPID, TSH, FT3, T4 #### [facility] [address] [place] [address] Dr. Frank Hills Epithelial cells LM Ql (Urine sed) NONE SEEN Normal NONE SEEN /RARE [facility] Comment on above: Performed By: #### L IVER, LIPID, TSH, FT3, T4 #### [facility] [address] [address] [address] Frank Hills Glucose Ql (U) Negative Normal NEGATIVE [facility] Comment on above: Performed By: #### L IVER, LIPID, TSH, FT3, T4 #### [facility] [address] [place] [address] Dr. Frank Hills Hemoglobin Ql (U) Negative Normal NEGATIVE [facility] Comment on above: Performed By: #### L IVER, LIPID, TSH, FT3, T4 #### [facility] [address] [place] [address] Dr. Frank Hills Ketones Ql (U) Negative Normal NEGATIVE [facility] Comment on above: Performed By: #### L IVER, LIPID, TSH, FT3, T4 #### [facility] [address] [place] [address] Dr. Frank Hills LEUKOCYTES Negative Normal NEGATIVE [facility] Comment on above: Performed By: #### L IVER, LIPID, TSH, FT3, T4 #### [facility] [address] [place] [address] Dr. Frank Hills MUCOUS NONE SEEN Normal NONE SEEN [facility] Comment on above: Performed By: #### L IVER, LIPID, TSH, FT3, T4 #### [facility] [address] [place] [address] Dr. Frank Hills Nitrite Ql (U) Negative Normal NEGATIVE [facility] Comment on above: Performed By: #### L IVER, LIPID, TSH, FT3, T4 #### [facility] [address] [place] [address] Dr. Frank Hills pH (U) 6.5 [pH] Normal 5-9 [facility] Comment on above: Performed By: #### L IVER, LIPID, TSH, FT3, T4 #### [facility] [address] [place] [address] Dr. Frank Hills RBC 0-2 Normal 0-2 [facility] Comment on above: Performed By: #### L IVER, LIPID, TSH, FT3, T4 #### [facility] [address] [place] [address] Dr. Frank Hills SPEC GRAVITY 1.015 Normal 1.005-<=1.025 [facility] Comment on above: Performed By: #### L IVER, LIPID, TSH, FT3, T4 #### [facility] [address] [place] [address] Dr. Frank Hills UA PROTEIN Negative Normal NEGATIVE/ TRACE [facility] Comment on above: Performed By: #### L IVER, LIPID, TSH, FT3, T4 #### [facility] [address] [place] [address] Dr. Frank Hills Urobilinogen Qn (U) 0.2 {Flaquita'U}/dL Normal 0.2 - 1. 0 [facility] Comment on above: Performed By: #### L IVER, LIPID, TSH, FT3, T4 #### [facility] [address] [place] [address] Dr. Frank Hills WBC NONE SEEN Normal NONE SEEN [facility] Comment on above: Performed By: #### L IVER, LIPID, TSH, FT3, T4 #### [facility] [address] [place] [address] Dr. Frank Hills INSULINon 10-19-2022 Insulin 9.2 uIU/mL Normal 2.6-24.9 [facility] Comment on above: Performed By: #### L IVER, LIPID, TSH, FT3, T4 #### [facility] [address] [place] [address] Dr. Frank Hills CBC W MANUAL DIFFon 10-18-20 ANISOCYTOSIS SLIGHT Normal [facility] Comment on above: Performed By: #### L IVER, LIPID, TSH, FT3, T4 #### [facility] [address] [place] [address] Dr. Frank Hills ATYPICAL LYMPH # Normal [facility] Comment on above: Performed By: #### L IVER, LIPID, TSH, FT3, T4 #### [facility] [address] [place] [address] Dr. Frank Hills ATYPICAL LYMPH % Normal [facility] Comment on above: Performed By: #### L IVER, LIPID, TSH, FT3, T4 #### [facility] [address] [place] [address] Dr. Frank Hills BAND # Normal 0.0-0.3 [facility] Comment on above: Performed By: #### L IVER, LIPID, TSH, FT3, T4 #### [facility] [address] [place] [address] Dr. Frank Hills BAND % Normal 0-5 [facility] Comment on above: Performed By: #### L IVER, LIPID, TSH, FT3, T4 #### [facility] [address] [address] [address] Frank Hills BASOM # 0.00 103/ul Normal 0.00-0.10 [facility] Comment on above: Performed By: #### L IVER, LIPID, TSH, FT3, T4 #### [facility] [address] [address] [address] Frank Hills BASOM % 0.0 % Critically low 0.2-2.0 [facility] Comment on above: Performed By: #### L IVER, LIPID, TSH, FT3, T4 #### [facility] [address] [address] [address] Frank Hills BLAST # Normal [facility] Comment on above: Performed By: #### L IVER, LIPID, TSH, FT3, T4 #### [facility] [address] [place] [address] Dr. Frank Hills BLAST % Normal [facility] Comment on above: Performed By: #### L IVER, LIPID, TSH, FT3, T4 #### [facility] [address] [address] [address] Frank Hills CORRECTED WBC Normal 4.0-11.0 [facility] Comment on above: Performed By: #### L IVER, LIPID, TSH, FT3, T4 #### [facility] [address] [address] [address] Frank Hills EOS # 0.06 103/ul Normal 0.00-0.70 [facility] Comment on above: Performed By: #### L IVER, LIPID, TSH, FT3, T4 #### [facility] [address] [address] [address] Frank Hills EOS% 2.0 % Normal 0.9-7.0 [facility] Comment on above: Performed By: #### L IVER, LIPID, TSH, FT3, T4 #### [facility] [address] [address] [address] Frank Hills HCT 35.6 % Critically low 36.0-48.0 [facility] Comment on above: Performed By: #### L IVER, LIPID, TSH, FT3, T4 #### [facility] [address] [address] [address] Frank Hills HGB 11.4 g/dl Critically low 12.0-16.0 [facility] Comment on above: Performed By: #### L IVER, LIPID, TSH, FT3, T4 #### [facility] [address] [place] [address] Dr. Frank Hills LYMPHM # 0.48 103/ul Critically low 1.20-3.80 [facility] Comment on above: Performed By: #### L IVER, LIPID, TSH, FT3, T4 #### [facility] [address] [place] [address] Dr. Frank Hills LYMPHM% 17.0 % Critically low 20.5-60.0 [facility] Comment on above: Performed By: #### L IVER, LIPID, TSH, FT3, T4 #### [facility] [address] [place] [address] Dr. Frank Hills MCH 33.4 pg Normal 26.7-34.0 [facility] Comment on above: Performed By: #### L IVER, LIPID, TSH, FT3, T4 #### [facility] [address] [place] [address] Dr. Frank Hills MCHC 32.0 g/dl Normal 29.9-35.2 [facility] Comment on above: Performed By: #### L IVER, LIPID, TSH, FT3, T4 #### [facility] [address] [place] [address] Dr. Frank Hills MCV 104.4 fL Critically high 81.0-99.0 [facility] Comment on above: Performed By: #### L IVER, LIPID, TSH, FT3, T4 #### [facility] [address] [place] [address] Dr. Frank Hills METAMYELOCYTE # Normal [facility] Comment on above: Performed By: #### L IVER, LIPID, TSH, FT3, T4 #### [facility] [address] [address] [address] Frank Hills METAMYELOCYTE % Normal [facility] Comment on above: Performed By: #### L IVER, LIPID, TSH, FT3, T4 #### [facility] [address] [address] [address] Frank Hills MICROCYTOSIS 1+ Normal [facility] Comment on above: Performed By: #### L IVER, LIPID, TSH, FT3, T4 #### [facility] [address] [place] [address] Dr. Frank Hills MONOM# 0.28 103/ul Critically low 0.30-0.80 [facility] Comment on above: Performed By: #### L IVER, LIPID, TSH, FT3, T4 #### [facility] [address] [place] [address] Dr. Frank Hills MONOM% 10.0 % Normal 1.7-12.0 [facility] Comment on above: Performed By: #### L IVER, LIPID, TSH, FT3, T4 #### [facility] [address] [place] [address] Dr. Frank Hills MPV 8.9 fL Critically low 9.5-13.5 [facility] Comment on above: Performed By: #### L IVER, LIPID, TSH, FT3, T4 #### [facility] [address] [place] [address] Dr. Frank Hills MYELOCYTE # Normal [facility] Comment on above: Performed By: #### L IVER, LIPID, TSH, FT3, T4 #### [facility] [address] [place] [address] Dr. Frank Hills MYELOCYTE % Normal [facility] Comment on above: Performed By: #### L IVER, LIPID, TSH, FT3, T4 #### [facility] [address] [place] [address] Dr. Frank Hills NRBC Normal [facility] Comment on above: Performed By: #### L IVER, LIPID, TSH, FT3, T4 #### [facility] [address] [place] [address] Dr. Frank Hills PLT 169 103/ul Normal 150-450 [facility] Comment on above: Performed By: #### L IVER, LIPID, TSH, FT3, T4 #### [facility] [address] [address] [address] Frank Hills RBC 3.41 106/ul Critically low 4.20-5.40 [facility] Comment on above: Performed By: #### L IVER, LIPID, TSH, FT3, T4 #### [facility] [address] [place] [address] Dr. Frank Hills RDW 14.1 % Normal 11.0-15.0 [facility] Comment on above: Performed By: #### L IVER, LIPID, TSH, FT3, T4 #### [facility] [address] [place] [address] Dr. Frank Hills SEG # 1.99 103/ul Normal 1.40-6.50 [facility] Comment on above: Performed By: #### L IVER, LIPID, TSH, FT3, T4 #### [facility] [address] [place] [address] Dr. Frank Hills SEG % 71.0 % Normal 43.0-75.0 [facility] Comment on above: Performed By: #### L IVER, LIPID, TSH, FT3, T4 #### [facility] [address] [place] [address] Dr. Frank Hills WBC 2.8 103/ul Critically low 4.0-11.0 [facility] Comment on above: Performed By: #### L IVER, LIPID, TSH, FT3, T4 #### [facility] [address] [place] [address] Dr. Frank Hills FREE T3on 10-18-2022 FREE T3 2.61 pg/mlL Normal 2.18-3.98 [facility] Comment on above: Performed By: #### L IVER, LIPID, TSH, FT3, T4 #### [facility] [address] [place] [address] Dr. Frank Hills GLYCOHEMOGLOBIN A1Con 2021 ADA RECOMMENDATION SEE BELOW Normal [facility] Comment on above: Result Comment: ADA RECOMMENDED LIMIT 4.0 - 6.0 ADA THERAPEUTIC TARGET < 7.0 ACTION SUGGESTED > 7.0 Performed By: #### A 1C #### [facility] [address] [place] [address] Dr. Frank Hills Glucose [Mass/Vol] 108 mg/dL Normal [facility] Comment on above: Performed By: #### A 1C #### [facility] [address] [address] [address] Frank Hills HbA1c (Bld) [Mass fraction] 5.4 % Normal 4.5-6.2 [facility] Comment on above: Performed By: #### A 1C #### [facility] [address] [place] [address] Dr. Frank Hills IRONon 10-18-2022 Iron [Mass/Vol] 96.0 ug/dL Normal 50.0-170.0 [facility] Comment on above: Performed By: #### L IVER, LIPID, TSH, FT3, T4 #### [facility] [address] [place] [address] Dr. Frank Hills LIPID PROFILEon 10-18-2022 CHOL-HDL RATIO NORM SEE BELOW Normal [facility] Comment on above: Result Comment: 3.3 - 4.4 LOW RISK 4.4 - 7.1 AVERAGE RISK 7.1 - 11.0 MODERATE RISK >11.0 HIGH RISK Performed By: #### L IVER, LIPID, TSH, FT3, T4 #### [facility] [address] [address] [address] Frank Hills Cholesterol [Mass/Vol] 172 mg/dL Normal <=200 [facility] Comment on above: Performed By: #### L IVER, LIPID, TSH, FT3, T4 #### [facility] [address] [place] [address] Dr. Frank Hills Cholesterol in HDL [Mass/Vol] 66 mg/dL Critically high 40-60 [facility] Comment on above: Performed By: #### L IVER, LIPID, TSH, FT3, T4 #### [facility] [address] [address] [address] Frank Hills Cholesterol in LDL [Mass/Vol] 86.6 mg/dL Normal [facility] Comment on above: Performed By: #### L IVER, LIPID, TSH, FT3, T4 #### [facility] [address] [address] [address] Frank Hills Cholesterol.total/Ch olesterol in HDL [Mass ratio] 2.6 {ratio} Normal [facility] Comment on above: Performed By: #### L IVER, LIPID, TSH, FT3, T4 #### [facility] [address] [address] [address] Frank Hills HDL NORMAL > or = 60 mg/dl - LO W CARDIOVASCULAR RISK <40 mg/dl - HIGH CARDIOVASCULAR RISK Normal [facility] Comment on above: Performed By: #### L IVER, LIPID, TSH, FT3, T4 #### [facility] [address] [address] [address] Frank Hills LDL CALC NORMAL SEE BELOW Normal [facility] Comment on above: Result Comment: <100 mg/dl OPTIMAL 100 - 129 mg/dl NEAR OR ABOVE OPTIMAL 130 - 159 mg/dl BORDERLINE HIGH 160 - 189 mg/dl HIGH >190 mg/dl VERY HIGH Performed By: #### L IVER, LIPID, TSH, FT3, T4 #### [facility] [address] [address] [address] Frank Hills Triglyceride [Mass/Vol] 97 mg/dL Normal <=150 [facility] Comment on above: Performed By: #### L IVER, LIPID, TSH, FT3, T4 #### [facility] [address] [address] [address] Frank Hills VLDL CALC 19.4 mg/dL Normal [facility] Comment on above: Performed By: #### L IVER, LIPID, TSH, FT3, T4 #### [facility] [address] [address] [address] Frank Hills LIVER PROFILEon 10-18-2022 Albumin [Mass/Vol] 3.5 g/dL Normal 3.4-5.0 [facility] Comment on above: Performed By: #### L IVER, LIPID, TSH, FT3, T4 #### [facility] [address] [place] [address] Dr. Frank Hills Albumin/Globulin [Mass ratio] 1.2 {ratio} Normal [facility] Comment on above: Performed By: #### L IVER, LIPID, TSH, FT3, T4 #### [facility] [address] [place] [address] Dr. Frank Hills ALP [Catalytic activity/Vol] 55 U/L Normal 46-116 [facility] Comment on above: Performed By: #### L IVER, LIPID, TSH, FT3, T4 #### [facility] [address] [place] [address] Dr. Frank Hills ALT [Catalytic activity/Vol] 34 U/L Normal 14-59 [facility] Comment on above: Performed By: #### L IVER, LIPID, TSH, FT3, T4 #### [facility] [address] [place] [address] Dr. Frank Hills AST [Catalytic activity/Vol] 40 U/L Critically high 15-37 [facility] Comment on above: Performed By: #### L IVER, LIPID, TSH, FT3, T4 #### [facility] [address] [place] [address] Dr. Frank Hills BILI, CONJUGATED 0.2 mg/dL Normal 0.0-0.2 [facility] Comment on above: Performed By: #### L IVER, LIPID, TSH, FT3, T4 #### [facility] [address] [place] [address] Dr. Frank Hills Bilirubin [Mass/Vol] 0.8 mg/dL Normal 0.2-1.0 [facility] Comment on above: Performed By: #### L IVER, LIPID, TSH, FT3, T4 #### [facility] [address] [place] [address] Dr. Frank Hills Globulin (S) [Mass/Vol] 2.9 g/dL Normal [facility] Comment on above: Performed By: #### L IVER, LIPID, TSH, FT3, T4 #### [facility] [address] [place] [address] Dr. Frank Hills Protein [Mass/Vol] 6.4 g/dL Normal 6.4-8.2 [facility] Comment on above: Performed By: #### L IVER, LIPID, TSH, FT3, T4 #### [facility] [address] [place] [address] Dr. Frank Hills T4on 10-18-2022 T4 [Mass/Vol] 6.70 ug/dL Normal 4.80-13.90 [facility] Comment on above: Performed By: #### L IVER, LIPID, TSH, FT3, T4 #### [facility] [address] [place] [address] Dr. Frank Hills TSHon 10-18-2022 TSH 1.804 uIU/mL Normal 0.358-3.740 [facility] Comment on above: Performed By: #### L IVER, LIPID, TSH, FT3, T4 #### [facility] [address] [place] [address] Dr. Frank Hills VITAMIN D 25 OHon 10-18-2022 VIT D 25-OH 50.7 ng/mL Normal [facility] Comment on above: Performed By: #### L IVER, LIPID, TSH, FT3, T4 #### [facility] [address] [place] [address] Dr. Frank Hills VIT D RANGES SEE BELOW Normal [facility] Comment on above: Result Comment: <20 ng/mL Vit D deficient 20 - <30 ng/mL Vit D insufficient 30 - 100 ng/mL Vit D sufficient >100 ng/mL Potential Toxicity Performed By: #### L IVER, LIPID, TSH, FT3, T4 #### [facility] [address] [place] [address] Dr. Frank Hills MG MAMM SCREEN 3D BO CADon 08-31-2022 MG MAMM SCREEN 3D BO CAD Patient: DANYELLE HASKINSGwen Exam Date: 08/31/2022 : 1955 Gender:F Ordering : DR JACK LANDAVERDE . Admission #: [id number] Family : YULISA BATRES . Order #: [id number] CLICK HERE TO VIEW EXAM RADIOLOGY REPORT [...] thyroid cancer at age 48. LOCATION: [facility] BREAST COMPOSITION: Scattered areas fibroglandular density. [...] MD on 08/31/2022 at 11:14 Normal [facility] XR DEXA BONE DENSITYon 08-27 XR [...] LISY SANDOVAL Date: 2022-08-27 18:41 Normal [facility] COMPLEMENT TOTAL (CH50)on Complement, Total (CH50) >60 Normal >41 [facility] Comment on above: Result Comment: Age [...] L IVER, LIPID, TSH, FT3, T4 #### [facility] [address] [place] [address] Dr. Frank Hills C3 and C4 COMPLEMENTon 08-01 Complement C3, Serum 146 mg/dL Normal 82-167 [facility] Comment on above: Performed By: #### L IVER, LIPID, TSH, FT3, T4 #### [facility] [address] [place] [address] Dr. Frank Hills Complement C4, Serum 38 mg/dL Normal 12-38 [facility] Comment on above: Performed By: #### L IVER, LIPID, TSH, FT3, T4 #### [facility] [address] [place] [address] Dr. Frank Hills CBC AUTO DIFFon 07-30-2022 BASO # 0.0 103/ul Normal 0.0-0.1 [facility] Comment on above: Performed By: #### C BC #### [facility] [address] [place] [address] Dr. Frank Hills Basophils/100 WBC (Bld) 0.9 % Normal 0.2-2.0 [facility] Comment on above: Performed By: #### C BC #### [facility] [address] [place] [address] Dr. Frank Hills EO # 0.1 103/ul Normal 0.0-0.7 [facility] Comment on above: Performed By: #### C BC #### [facility] [address] [place] [address] Dr. Frank Hills Eosinophils/100 WBC (Bld) 3.4 % Normal 0.9-7.0 [facility] Comment on above: Performed By: #### C BC #### [facility] [address] [place] [address] Dr. Frank Hills Erythrocyte distribution width (RBC) [Ratio] 13.8 % Normal 11.0-15.0 [facility] Comment on above: Performed By: #### C BC #### [facility] [address] [place] [address] Dr. Frank Hills Hematocrit (Bld) [Volume fraction] 36.6 % Normal 36.0-48.0 [facility] Comment on above: Performed By: #### C BC #### [facility] [address] [place] [address] Dr. Frank Hills Hemoglobin (Bld) [Mass/Vol] 11.8 g/dL Critically low 12.0-16.0 [facility] Comment on above: Performed By: #### C BC #### [facility] [address] [place] [address] Dr. Frank Hills IG # 0.01 10e3/ul Normal 0.00-0.03 [facility] Comment on above: Performed By: #### C BC #### [facility] [address] [place] [address] Dr. Frank Hills IG % 0.3 % Normal 0.0-0.5 [facility] Comment on above: Performed By: #### C BC #### [facility] [address] [place] [address] Dr. Frank Hills LYMPH # 0.6 103/ul Critically low 1.2-3.8 [facility] Comment on above: Performed By: #### C BC #### [facility] [address] [place] [address] Dr. Frank Hills Lymphocytes/100 WBC (Bld) 18.1 % Critically low 20.5-60.0 [facility] Comment on above: Performed By: #### C BC #### [facility] [address] [place] [address] Dr. Frank Hills MANUAL DIFF REQ NO Normal [facility] Comment on above: Performed By: #### C BC #### [facility] [address] [place] [address] Dr. Frank Hills MCH (RBC) [Entitic mass] 33.6 pg Normal 26.7-34.0 [facility] Comment on above: Performed By: #### C BC #### [facility] [address] [address] [address] Frank Hills MCHC (RBC) [Mass/Vol] 32.2 g/dL Normal 29.9-35.2 [facility] Comment on above: Performed By: #### C BC #### [facility] [address] [address] [address] Frank Hills MCV (RBC) [Entitic vol] 104.3 fL Critically high 81.0-99.0 [facility] Comment on above: Performed By: #### C BC #### [facility] [address] [place] [address] Dr. Frank Hills MONO # 0.4 103/ul Normal 0.3-0.8 [facility] Comment on above: Performed By: #### C BC #### [facility] [address] [place] [address] Dr. Frank Hills Monocytes/100 WBC (Bld) 11.2 % Normal 1.7-12.0 [facility] Comment on above: Performed By: #### C BC #### [facility] [address] [place] [address] Dr. Frank Hills NEUT # 2.3 103/ul Normal 1.4-6.5 [facility] Comment on above: Performed By: #### C BC #### [facility] [address] [place] [address] Dr. Frank Hills Neutrophils/100 WBC (Bld) 66.1 % Normal 43.0-75.0 [facility] Comment on above: Performed By: #### C BC #### [facility] [address] [place] [address] Dr. Frank Hills Platelet mean volume (Bld) [Entitic vol] 8.9 fL Critically low 9.5-13.5 [facility] Comment on above: Performed By: #### C BC #### [facility] [address] [place] [address] Dr. Frank Hills PLT 213 103/ul Normal 150-450 [facility] Comment on above: Performed By: #### C BC #### [facility] [address] [place] [address] Dr. Frank Hills RBC 3.51 106/ul Critically low 4.20-5.40 [facility] Comment on above: Performed By: #### C BC #### [facility] [address] [address] [address] Frank Hills WBC 3.5 103/ul Critically low 4.0-11.0 [facility] Comment on above: Performed By: #### C BC #### [facility] [address] [place] [address] Dr. Frank Hills PROF 14(COMP METB)on 022 Albumin [Mass/Vol] 3.7 g/dL Normal 3.4-5.0 [facility] Comment on above: Performed By: #### L IVER, LIPID, TSH, FT3, T4 #### [facility] [address] [place] [address] Dr. Frank Hills Albumin/Globulin [Mass ratio] 1.2 {ratio} Normal [facility] Comment on above: Performed By: #### L IVER, LIPID, TSH, FT3, T4 #### [facility] [address] [place] [address] Dr. Frank Hills ALP [Catalytic activity/Vol] 59 U/L Normal 46-116 [facility] Comment on above: Performed By: #### L IVER, LIPID, TSH, FT3, T4 #### [facility] [address] [place] [address] Dr. Frank Hills ALT [Catalytic activity/Vol] 23 U/L Normal 14-59 [facility] Comment on above: Performed By: #### L IVER, LIPID, TSH, FT3, T4 #### [facility] [address] [place] [address] Dr. Frank Hills Anion gap [Moles/Vol] 10.2 mmol/L Normal [facility] Comment on above: Performed By: #### L IVER, LIPID, TSH, FT3, T4 #### [facility] [address] [place] [address] Dr. Frank Hills AST [Catalytic activity/Vol] 24 U/L Normal 15-37 [facility] Comment on above: Performed By: #### L IVER, LIPID, TSH, FT3, T4 #### [facility] [address] [place] [address] Dr. Frank Hills Bilirubin [Mass/Vol] 0.6 mg/dL Normal 0.2-1.0 [facility] Comment on above: Performed By: #### L IVER, LIPID, TSH, FT3, T4 #### [facility] [address] [place] [address] Dr. Frank Hills Calcium [Mass/Vol] 8.9 mg/dL Normal 8.5-10.1 [facility] Comment on above: Performed By: #### L IVER, LIPID, TSH, FT3, T4 #### [facility] [address] [place] [address] Dr. Frank Hills Chloride [Moles/Vol] 105 mmol/L Normal 98-107 [facility] Comment on above: Performed By: #### L IVER, LIPID, TSH, FT3, T4 #### [facility] [address] [place] [address] Dr. Frank Hills CO2 [Moles/Vol] 30.0 mmol/L Normal 21.0-32.0 [facility] Comment on above: Performed By: #### L IVER, LIPID, TSH, FT3, T4 #### [facility] [address] [place] [address] Dr. Frank Hills Creatinine [Mass/Vol] 0.64 mg/dL Normal 0.55-1.02 [facility] Comment on above: Performed By: #### L IVER, LIPID, TSH, FT3, T4 #### [facility] [address] [place] [address] Dr. Frank Hills EGFR-AF [place] >60 Normal >=60 [facility] Comment on above: Performed By: #### L IVER, LIPID, TSH, FT3, T4 #### [facility] [address] [place] [address] Dr. Frank Hills EGFR-NON AF [place] >60 Normal >=60 [facility] Comment on above: Performed By: #### L IVER, LIPID, TSH, FT3, T4 #### [facility] [address] [address] [address] Frank Hills Globulin (S) [Mass/Vol] 3.0 g/dL Normal [facility] Comment on above: Performed By: #### L IVER, LIPID, TSH, FT3, T4 #### [facility] [address] [address] [address] Frank Hills Glucose [Mass/Vol] 97 mg/dL Normal 74-106 [facility] Comment on above: Performed By: #### L IVER, LIPID, TSH, FT3, T4 #### [facility] [address] [place] [address] Dr. Frank Hills Potassium [Moles/Vol] 4.2 mmol/L Normal 3.5-5.1 [facility] Comment on above: Performed By: #### L IVER, LIPID, TSH, FT3, T4 #### [facility] [address] [address] [address] Frank Hills Protein [Mass/Vol] 6.7 g/dL Normal 6.4-8.2 [facility] Comment on above: Performed By: #### L IVER, LIPID, TSH, FT3, T4 #### [facility] [address] [address] [address] Frank Hills Sodium [Moles/Vol] 141 mmol/L Normal 136-145 [facility] Comment on above: Performed By: #### L IVER, LIPID, TSH, FT3, T4 #### [facility] [address] [address] [address] Frank Hills Urea nitrogen [Mass/Vol] 13.0 mg/dL Normal 7.0-18.0 [facility] Comment on above: Performed By: #### L IVER, LIPID, TSH, FT3, T4 #### [facility] [address] [address] [address] Frank Hills Urea nitrogen/Creatinine [Mass ratio] 20.3 mg/mg Normal [facility] Comment on above: Performed By: #### L IVER, LIPID, TSH, FT3, T4 #### [facility] [address] [place] [address] Dr. Frank Hills SED RATE WESTERGRENon 2021 SED RATE 8 mm/hr Normal <=30 [facility] Comment on above: Performed By: #### L IVER, LIPID, TSH, FT3, T4 #### [facility] [address] [place] [address] Dr. Frank Hills UA RANDOM W/MICROSCOPICon BACTERIA NONE SEEN Normal NONE SEEN [facility] Comment on above: Performed By: #### L IVER, LIPID, TSH, FT3, T4 #### [facility] [address] [place] [address] Dr. Frank Hills Bilirubin Ql (U) Negative Normal NEGATIVE [facility] Comment on above: Performed By: #### L IVER, LIPID, TSH, FT3, T4 #### [facility] [address] [place] [address] Dr. Frank Hills CAST NONE SEEN Normal NONE SEEN [facility] Comment on above: Performed By: #### L IVER, LIPID, TSH, FT3, T4 #### [facility] [address] [place] [address] Dr. Frank Hills Clarity (U) CLEAR Normal CLEAR [facility] Comment on above: Performed By: #### L IVER, LIPID, TSH, FT3, T4 #### [facility] [address] [place] [address] Dr. Frank Hills Color (U) LT. YELLOW Normal YELLOW [facility] Comment on above: Performed By: #### L IVER, LIPID, TSH, FT3, T4 #### [facility] [address] [place] [address] Dr. Frank Hills Crystals LM Nom (Urine sed) NONE SEEN Normal NONE SEEN [facility] Comment on above: Performed By: #### L IVER, LIPID, TSH, FT3, T4 #### [facility] [address] [address] [address] Frank Hills Epithelial cells LM Ql (Urine sed) FEW Abnormal NONE SEEN /RARE [facility] Comment on above: Performed By: #### L IVER, LIPID, TSH, FT3, T4 #### [facility] [address] [address] [address] Frank Hills Glucose Ql (U) Negative Normal NEGATIVE [facility] Comment on above: Performed By: #### L IVER, LIPID, TSH, FT3, T4 #### [facility] [address] [place] [address] Dr. Frank Hills Hemoglobin Ql (U) Negative Normal NEGATIVE [facility] Comment on above: Performed By: #### L IVER, LIPID, TSH, FT3, T4 #### [facility] [address] [place] [address] Dr. Frank Hills Ketones Ql (U) Negative Normal NEGATIVE [facility] Comment on above: Performed By: #### L IVER, LIPID, TSH, FT3, T4 #### [facility] [address] [place] [address] Dr. Frank Hills LEUKOCYTES TRACE Abnormal NEGATIVE [facility] Comment on above: Performed By: #### L IVER, LIPID, TSH, FT3, T4 #### [facility] [address] [place] [address] Dr. Frank Hills MUCOUS NONE SEEN Normal NONE SEEN [facility] Comment on above: Performed By: #### L IVER, LIPID, TSH, FT3, T4 #### [facility] [address] [address] [address] Frank Hills Nitrite Ql (U) Negative Normal NEGATIVE [facility] Comment on above: Performed By: #### L IVER, LIPID, TSH, FT3, T4 #### [facility] [address] [address] [address] Frank Hills pH (U) 6.5 [pH] Normal 5-9 [facility] Comment on above: Performed By: #### L IVER, LIPID, TSH, FT3, T4 #### [facility] [address] [address] [address] Frank Hills RBC 0-2 Normal 0-2 [facility] Comment on above: Performed By: #### L IVER, LIPID, TSH, FT3, T4 #### [facility] [address] [address] [address] Frank Hills SPEC GRAVITY 1.025 Normal 1.005-<=1.025 [facility] Comment on above: Performed By: #### L IVER, LIPID, TSH, FT3, T4 #### [facility] [address] [address] [address] Frank Hills UA PROTEIN Negative Normal NEGATIVE/ TRACE [facility] Comment on above: Performed By: #### L IVER, LIPID, TSH, FT3, T4 #### [facility] [address] [place] [address] Dr. Frank Hills Urobilinogen Qn (U) 0.2 {Flaquita'U}/dL Normal 0.2 - 1. 0 [facility] Comment on above: Performed By: #### L IVER, LIPID, TSH, FT3, T4 #### [facility] [address] [address] [address] Frank Hills WBC 0-2 Abnormal NONE SEEN [facility] Comment on above: Performed By: #### L IVER, LIPID, TSH, FT3, T4 #### [facility] [address] [address] [address] Frank Hills C3 and C4 COMPLEMENTon 04-21 Complement C3, Serum 171 mg/dL Critically high 82-167 [facility] Comment on above: Performed By: #### L IVER, LIPID, TSH, FT3, T4 #### [facility] [address] [address] [address] Frank Hills Complement C4, Serum 40 mg/dL Critically high 12-38 [facility] Comment on above: Performed By: #### L IVER, LIPID, TSH, FT3, T4 #### [facility] [address] [address] [address] Frank Hills COMPLEMENT TOTAL (CH50)on Complement, Total (CH50) >60 Normal >41 [facility] Comment on above: Result Comment: Age [...] L IVER, LIPID, TSH, FT3, T4 #### [facility] [address] [place] [address] Dr. Frank Hills CBC AUTO DIFFon 04-20-2022 BASO # 0.0 103/ul Normal 0.0-0.1 [facility] Comment on above: Performed By: #### L IVER, LIPID, TSH, FT3, T4 #### [facility] [address] [place] [address] Dr. Frank Hills Basophils/100 WBC (Bld) 0.4 % Normal 0.2-2.0 [facility] Comment on above: Performed By: #### L IVER, LIPID, TSH, FT3, T4 #### [facility] [address] [place] [address] Dr. Frank Hills EO # 0.1 103/ul Normal 0.0-0.7 [facility] Comment on above: Performed By: #### L IVER, LIPID, TSH, FT3, T4 #### [facility] [address] [place] [address] Dr. Frank Hills Eosinophils/100 WBC (Bld) 1.7 % Normal 0.9-7.0 [facility] Comment on above: Performed By: #### L IVER, LIPID, TSH, FT3, T4 #### [facility] [address] [place] [address] Dr. Frank Hills Erythrocyte distribution width (RBC) [Ratio] 13.2 % Normal 11.0-15.0 [facility] Comment on above: Performed By: #### L IVER, LIPID, TSH, FT3, T4 #### [facility] [address] [place] [address] Dr. Frank Hills Hematocrit (Bld) [Volume fraction] 39.6 % Normal 36.0-48.0 [facility] Comment on above: Performed By: #### L IVER, LIPID, TSH, FT3, T4 #### [facility] [address] [place] [address] Dr. Frank Hills Hemoglobin (Bld) [Mass/Vol] 12.7 g/dL Normal 12.0-16.0 [facility] Comment on above: Performed By: #### L IVER, LIPID, TSH, FT3, T4 #### [facility] [address] [place] [address] Dr. rFank Hills IG # 0.02 10e3/ul Normal 0.00-0.03 [facility] Comment on above: Performed By: #### L IVER, LIPID, TSH, FT3, T4 #### [facility] [address] [place] [address] Dr. Frank Hills IG % 0.4 % Normal 0.0-0.5 [facility] Comment on above: Performed By: #### L IVER, LIPID, TSH, FT3, T4 #### [facility] [address] [place] [address] Dr. Frank Hills LYMPH # 0.9 103/ul Critically low 1.2-3.[address] [facility] Comment on above: Performed By: #### L IVER, LIPID, TSH, FT3, T4 #### [facility] [address] [place] [address] Dr. Frank Hills Lymphocytes/100 WBC (Bld) 17.3 % Critically low 20.5-60.0 [facility] Comment on above: Performed By: #### L IVER, LIPID, TSH, FT3, T4 #### [facility] [address] [place] [address] Dr. Frank Hills MANUAL DIFF REQ NO Normal [facility] Comment on above: Performed By: #### L IVER, LIPID, TSH, FT3, T4 #### [facility] [address] [place] [address] Dr. Frank Hills MCH (RBC) [Entitic mass] 33.7 pg Normal 26.7-34.0 [facility] Comment on above: Performed By: #### L IVER, LIPID, TSH, FT3, T4 #### [facility] [address] [place] [address] Dr. Frank Hills MCHC (RBC) [Mass/Vol] 32.1 g/dL Normal 29.9-35.2 [facility] Comment on above: Performed By: #### L IVER, LIPID, TSH, FT3, T4 #### [facility] [address] [place] [address] Dr. Frank Hills MCV (RBC) [Entitic vol] 105.0 fL Critically high 81.0-99.0 [facility] Comment on above: Performed By: #### L IVER, LIPID, TSH, FT3, T4 #### [facility] [address] [place] [address] Dr. Frank Hills MONO # 0.5 103/ul Normal 0.3-0.8 [facility] Comment on above: Performed By: #### L IVER, LIPID, TSH, FT3, T4 #### [facility] [address] [place] [address] Dr. Frank Hills Monocytes/100 WBC (Bld) 8.9 % Normal 1.7-12.0 [facility] Comment on above: Performed By: #### L IVER, LIPID, TSH, FT3, T4 #### [facility] [address] [place] [address] Dr. Frank Hills NEUT # 3.7 103/ul Normal 1.4-6.5 [facility] Comment on above: Performed By: #### L IVER, LIPID, TSH, FT3, T4 #### [facility] [address] [place] [address] Dr. Frank Hills Neutrophils/100 WBC (Bld) 71.3 % Normal 43.0-75.0 [facility] Comment on above: Performed By: #### L IVER, LIPID, TSH, FT3, T4 #### [facility] [address] [address] [address] Frank Hills Platelet mean volume (Bld) [Entitic vol] 8.9 fL Critically low 9.5-13.5 [facility] Comment on above: Performed By: #### L IVER, LIPID, TSH, FT3, T4 #### [facility] [address] [address] [address] Frank Hills PLT 198 103/ul Normal 150-450 [facility] Comment on above: Performed By: #### L IVER, LIPID, TSH, FT3, T4 #### [facility] [address] [address] [address] Frank Hills RBC 3.77 106/ul Critically low 4.20-5.40 [facility] Comment on above: Performed By: #### L IVER, LIPID, TSH, FT3, T4 #### [facility] [address] [address] [address] Frank Hills WBC 5.2 103/ul Normal 4.0-11.0 [facility] Comment on above: Performed By: #### L IVER, LIPID, TSH, FT3, T4 #### [facility] [address] [place] [address] Dr. Frank Hills [facility] EXAMINATION: MRI BRA [facility], 04/20/2022 9:23 AM EDT HISTORY: Headache [...] CHARO MAY Date: 2022-04-20 16:44 Normal [facility] PROF 14(COMP METB)on 022 Albumin [Mass/Vol] 4.0 g/dL Normal 3.4-5.0 [facility] Comment on above: Performed By: #### L IVER, LIPID, TSH, FT3, T4 #### [facility] [address] [place] [address] Dr. Frank Hills Albumin/Globulin [Mass ratio] 1.1 {ratio} Normal [facility] Comment on above: Performed By: #### L IVER, LIPID, TSH, FT3, T4 #### [facility] [address] [place] [address] Dr. Frank Hills ALP [Catalytic activity/Vol] 68 U/L Normal 46-116 [facility] Comment on above: Performed By: #### L IVER, LIPID, TSH, FT3, T4 #### [facility] [address] [place] [address] Dr. Frank Hills ALT [Catalytic activity/Vol] 35 U/L Normal 14-59 [facility] Comment on above: Performed By: #### L IVER, LIPID, TSH, FT3, T4 #### [facility] [address] [place] [address] Dr. Frank Hills Anion gap [Moles/Vol] 10.1 mmol/L Normal [facility] Comment on above: Performed By: #### L IVER, LIPID, TSH, FT3, T4 #### [facility] [address] [place] [address] Dr. Frank Hills AST [Catalytic activity/Vol] 31 U/L Normal 15-37 [facility] Comment on above: Performed By: #### L IVER, LIPID, TSH, FT3, T4 #### [facility] [address] [address] [address] Frank Hills Bilirubin [Mass/Vol] 0.9 mg/dL Normal 0.2-1.0 [facility] Comment on above: Performed By: #### L IVER, LIPID, TSH, FT3, T4 #### [facility] [address] [place] [address] Dr. Frank Hills Calcium [Mass/Vol] 9.0 mg/dL Normal 8.5-10.1 [facility] Comment on above: Performed By: #### L IVER, LIPID, TSH, FT3, T4 #### [facility] [address] [address] [address] Frank Hills Chloride [Moles/Vol] 104 mmol/L Normal 98-107 [facility] Comment on above: Performed By: #### L IVER, LIPID, TSH, FT3, T4 #### [facility] [address] [place] [address] Dr. Frank Hills CO2 [Moles/Vol] 29.7 mmol/L Normal 21.0-32.0 [facility] Comment on above: Performed By: #### L IVER, LIPID, TSH, FT3, T4 #### [facility] [address] [place] [address] Dr. Frank Hills Creatinine [Mass/Vol] 0.68 mg/dL Normal 0.55-1.02 [facility] Comment on above: Performed By: #### L IVER, LIPID, TSH, FT3, T4 #### [facility] [address] [place] [address] Dr. Frank Hills EGFR-AF KUWAITI >60 Normal >=60 [facility] Comment on above: Performed By: #### L IVER, LIPID, TSH, FT3, T4 #### [facility] [address] [place] [address] Dr. Frank Hills EGFR-NON AF [place]I >60 Normal >=60 [facility] Comment on above: Performed By: #### L IVER, LIPID, TSH, FT3, T4 #### [facility] [address] [address] [address] Frank Hills Globulin (S) [Mass/Vol] 3.5 g/dL Normal [facility] Comment on above: Performed By: #### L IVER, LIPID, TSH, FT3, T4 #### [facility] [address] [place] [address] Dr. Frank Hills Glucose [Mass/Vol] 92 mg/dL Normal 74-106 [facility] Comment on above: Performed By: #### L IVER, LIPID, TSH, FT3, T4 #### [facility] [address] [place] [address] Dr. Frank Hills Potassium [Moles/Vol] 3.8 mmol/L Normal 3.5-5.1 [facility] Comment on above: Performed By: #### L IVER, LIPID, TSH, FT3, T4 #### [facility] [address] [place] [address] Dr. Frank Hills Protein [Mass/Vol] 7.5 g/dL Normal 6.4-8.2 [facility] Comment on above: Performed By: #### L IVER, LIPID, TSH, FT3, T4 #### [facility] [address] [place] [address] Dr. Frank Hills Sodium [Moles/Vol] 140 mmol/L Normal 136-145 [facility] Comment on above: Performed By: #### L IVER, LIPID, TSH, FT3, T4 #### [facility] [address] [place] [address] Dr. Frank Hills Urea nitrogen [Mass/Vol] 14.0 mg/dL Normal 7.0-18.0 [facility] Comment on above: Performed By: #### L IVER, LIPID, TSH, FT3, T4 #### [facility] [address] [place] [address] Dr. Frank Hills Urea nitrogen/Creatinine [Mass ratio] 20.6 mg/mg Normal [facility] Comment on above: Performed By: #### L IVER, LIPID, TSH, FT3, T4 #### [facility] [address] [place] [address] Dr. Frank Hills [facility] SED RATE 6 mm/hr Normal <=30 [facility] Comment on above: Performed By: #### S EDR #### [facility] [address] [place] [address] Dr. Frank Hills UA RANDOM W/MICROSCOPICon BACTERIA NONE SEEN Normal NONE SEEN [facility] Comment on above: Performed By: #### L IVER, LIPID, TSH, FT3, T4 #### [facility] [address] [place] [address] Dr. Frank Hills Bilirubin Ql (U) Negative Normal NEGATIVE [facility] Comment on above: Performed By: #### L IVER, LIPID, TSH, FT3, T4 #### [facility] [address] [place] [address] Dr. Frank Hills CAST NONE SEEN Normal NONE SEEN [facility] Comment on above: Performed By: #### L IVER, LIPID, TSH, FT3, T4 #### [facility] [address] [place] [address] Dr. Frank Hills Clarity (U) CLEAR Normal CLEAR [facility] Comment on above: Performed By: #### L IVER, LIPID, TSH, FT3, T4 #### [facility] [address] [place] [address] Dr. Frank Hills Color (U) LT. YELLOW Normal YELLOW [facility] Comment on above: Performed By: #### L IVER, LIPID, TSH, FT3, T4 #### [facility] [address] [place] [address] Dr. Frank Hills Crystals LM Nom (Urine sed) NONE SEEN Normal NONE SEEN [facility] Comment on above: Performed By: #### L IVER, LIPID, TSH, FT3, T4 #### [facility] [address] [place] [address] Dr. Frank Hills Epithelial cells LM Ql (Urine sed) RARE Normal NONE SEEN /RARE [facility] Comment on above: Performed By: #### L IVER, LIPID, TSH, FT3, T4 #### [facility] [address] [address] [address] Frank Hills Glucose Ql (U) Negative Normal NEGATIVE [facility] Comment on above: Performed By: #### L IVER, LIPID, TSH, FT3, T4 #### [facility] [address] [address] [address] Frank Hills Hemoglobin Ql (U) Negative Normal NEGATIVE [facility] Comment on above: Performed By: #### L IVER, LIPID, TSH, FT3, T4 #### [facility] [address] [place] [address] Dr. Frank Hills Ketones Ql (U) Negative Normal NEGATIVE [facility] Comment on above: Performed By: #### L IVER, LIPID, TSH, FT3, T4 #### [facility] [address] [place] [address] Dr. Frank Hills LEUKOCYTES Negative Normal NEGATIVE [facility] Comment on above: Performed By: #### L IVER, LIPID, TSH, FT3, T4 #### [facility] [address] [place] [address] Dr. Frank Hills MUCOUS TRACE Abnormal NONE SEEN [facility] Comment on above: Performed By: #### L IVER, LIPID, TSH, FT3, T4 #### [facility] [address] [place] [address] Dr. Frank Hills Nitrite Ql (U) Negative Normal NEGATIVE [facility] Comment on above: Performed By: #### L IVER, LIPID, TSH, FT3, T4 #### [facility] [address] [address] [address] Frank Hills pH (U) 6.0 [pH] Normal 5-9 [facility] Comment on above: Performed By: #### L IVER, LIPID, TSH, FT3, T4 #### [facility] [address] [place] [address] Dr. Frank Hills RBC NONE SEEN Abnormal 0-2 [facility] Comment on above: Performed By: #### L IVER, LIPID, TSH, FT3, T4 #### [facility] [address] [place] [address] Dr. Frank Hills SPEC GRAVITY 1.020 Normal 1.005-<=1.025 [facility] Comment on above: Performed By: #### L IVER, LIPID, TSH, FT3, T4 #### [facility] [address] [address] [address] Frank Hills UA PROTEIN Negative Normal NEGATIVE/ TRACE [facility] Comment on above: Performed By: #### L IVER, LIPID, TSH, FT3, T4 #### [facility] [address] [address] [address] Frank Hills Urobilinogen Qn (U) 0.2 {Flaquita'U}/dL Normal 0.2 - 1. 0 [facility] Comment on above: Performed By: #### L IVER, LIPID, TSH, FT3, T4 #### [facility] [address] [place] [address] Dr. Frank Hills WBC NONE SEEN Normal NONE SEEN [facility] Comment on above: Performed By: #### L IVER, LIPID, TSH, FT3, T4 #### [facility] [address] [place] [address] Dr. Frank Hills Ambulatory Clinical Summaryo n 10-27-2021 Ambulatory Clinical Summary {[id number]}CD:[id number] Normal [facility] Patient Educationon 10-27-20 Patient Education Urology [...] stimulation). ? For women, using a medical assistant internal medicine to prevent urine leaks. This is a [...] after experiencing incontinence. General instructions ? Take lnbp-pzz-vodnpto and prescription medicines only as (more content not included)... Normal [facility] Urology Office/Clinic Noteon 10-27-2021 Urology Office/Clinic [...] urine and/or bladder capacity by US- non-imaging [id number] Urnls Dip Stick Auto w/o Microscopy POC 82337 I have reviewed the previous health record information and history for this patient from Dr. Ramos Follow-up With When Contact Information Richard Leal MD, Maximo Dhaliwal, URO Only if needed [facility] [address], [place] [address]- Additional Instructions: Patient Education Urinary Incontinence I, [...] Diverticulosis Dysuria Encounter for screening colonoscopy for ybh-rkqs-ejrs patient Hemifacial spasm History of shingles Hyperlipidemia Hypertension Hyperthyroidism Insomnia Nocturia Osteoarthritis Polyneuropathy Post-void dribbling Raynaud phenomenon Recurrent UTI Rosacea Urethral stricture Historical No qualifying data Procedure/Surgical History Hip replacement (12/13/2016), Fusion of lumbar spine (12/06/2011), Ablation (08/18/2005), Excision of sebaceous cyst (08/27/1999), Arthroscopy of knee, Dilatation and curettage, Excision of ganglion cyst, E (more content not included)... Normal [facility] Comment on above: Result Comment: Elec tronically Signed By: Maximo Ramos Jr., MD\.br\Date and Time Signed: 10/27/21 11:16 EST\.br\Electronically Co-Signed By: Snow Lundberg MA\.br\Date and Time Co-Signed: 10/27/21 11:12 EST Ambulatory Clinical Summaryo n 04-23-2021 Ambulatory Clinical Summary {[id number] f-4e}CD:[id number] Normal [facility] Patient Educationon 04-23-20 Patient Education Urinary [...] It is (more content not included)... Normal [facility] Urology Office/Clinic Noteon 04-23-2021 Urology Office/Clinic [...] procedure, # 2 cap(s), Refills(s) 0, Pharmacy: [facility]/pharmacy #[id number], 172.7, cm, 02/24/21 8:22:00 EDT, Height/Length Dosing, 99.8, kg, 02/24/21 8:21:00 EDT... Urnls Dip Stick Auto w/o Microscopy POC 28315 I have reviewed the previous health record information and history for this pt. from Dr. Ramos. Follow-up With When Contact Information Richard Leal MD, Maximo Dhaliwal, URO [address] [place] [address]- Additional Instructions: 6mos. pvr Patient Education Urinary [...] Diverticulosis Dysuria Encounter for screening colonoscopy for pin-sltz-dxto patient Hemifacial spasm History of shingles Hyperlipidemia Hypertension Hyperthyroidism Insomnia Osteoarthritis Polyneuropathy (more content not included)... Normal [facility] Comment on above: Result Comment: Elec tronically Signed By: Richard Leal MD, Maximo Dhaliwal\.br\Date and Time Signed: 04/23/21 12:21 EDT\.br\Electronically Co-Signed By: Indu Gonzalez MA\.br\Date and Time Co-Signed: 04/23/21 11:40 EDT Coding Summary.on 03-16-2021 Coding Summary. CD:[id number] Gh 0bWw+PGhlYWQ+LO6XJVRwQ 76leJPkwQ5AX4wFOW0EAXS NMYDUFM4JZA3omHR7YMfhJ 2VybiAv TswouDCnYG80SKf0AXI1hN tyJUmipQ0rgUKqT9z3MzUh ZQ94dG10MSnsYPSeGyC3Wh ZpbjsgbWFy V1lpYqDeuGOxDrf+PHRhYm xlIHdpZHRoPScxMDAlJyBz fRzfXQ1dWr9mJBTxSNSasK xhcHNlOiBj f6pcLKJyNVlgHJ5txZkvF0 CnnMI0GYQdp6s1Ty35mCX+ QINmYOP6gGkoXDxlh659Gu Bng1kgWAJ6 nIVtVEhpUBO4H92fp7K2RF BhDRLiVUW0pOZ8gR4kgPyu ebkrG7UthLNsDjJ9WSD2xU TzoC2kuMrm ihaalP9hWfk+X54XMX8XPG TQKC4MPhm1K2ShQewotQQ+ PM66SMJyVC79mPAtjMVfb3 dmoOl1OzFz RBHwDCE4wMgsDTlba9WbFK BwA75jsSRnd8J4IPSqqJou gWWlHyUlcQE2nW4nCLrqss ech4xczxgs Uwyow8jecn22iE63G27gBX ijMEHhVFG8GQBfTOHgrZrg wm4fzO9xQg0+CGxek9tum9 nluZm3KnRw GPDuotLgmDewCON0p1SrIr 45F9YipAvgv3VkOih8ks81 iDMiv9E9oMH0FVaiNUJvmH 0kQGvwVyV1 IEDfWsQzmI89jPFzTGlmLe 9yiSskiBgtDT9cGDCbxkka LMQjdM1vXYOuiWGppBfjTB 4wNTBpbjtm d738NzYbZAF3RNChzAMgL9 XauP9jEaIkZYJdKUKmG6Ms fZTaFAvlC024GUypUiQ3CZ FtxvMsB9Kz QLGrqSsrWmG9c1G8Sv2Hl1 EbzvysBFX5HKapZGU5YdYc FpAiMaU0I5UgCad3GOVqdB tlFQ5dI2Rd WHCiytqcfespiAV1MBSqHF PiyW47lMIwKUrvDe9tr1A1 v181QIWzUHEolM18Se7umS ogMTBwdCBU qL3ncawxb8chvnugYiJfVU TbWVe3OOs0NYPrfFtrWiEd BIQ5UtN9RKS7oPWbtX8thH twnxeyrG5v Oyc+R21kbC4vBLC3CEC0fn nvEKXobvGaHA86RV88Y5Yi PjwvdGFibGU+PGRpdiBzdH tmZR6eAiRx a9nur0ArIAbuS4YsHAFaAZ ezAeb8ZIOsYNY8fEE9wB7c OGNyVDufx2E3cEE4O9Sdmt Dqyv6hf0hb KFIoOMwwC44eoXJbg5Z6QO IcsJS2UZIsiGnuTxJjkI35 Oyc+FJIihQmud1DsGcgzs3 imm4esnIq0 LlNmBVTiudKqyDdgKDU4d2 QcLd10T79hNQpeWVXnOGAl VBEqKPRwaUtksv8sxI5zGj 8+PGNvbCB3 rIP6dT1oIPDfUrN3UBwxE3 09EhJdgBTuUesgt3wbr1pj zHm1OhKbHNPymtAzlKifDY V0l1FxBs09 J18dGFoyJKIqPIBqAKTqNS AgrWfpdt2fkV3lBt9+PC9j r3knzo68sF72jKO+PHRkIH C7kQlvGUyh ETYcuL5dVAsyInT9PMUtPc SzcM51wBKlGJtrRm6qcRye jJwaNG4yKGQnbuyop201Ay Lju5bcWXZa vBFnDMlwHZD4E87nc8L6YX CiYEYtJCM0eYZ6hG3uuKiy bjogbGVmdDsgdmVydGljYW qaWEgwN403 IHRvcDsnPlBhdGllbnQgTm KeRZd4J6XtObh4VDXfzHvp KE8xiMMpDXqhGk5swFzlkI udFC5zXGYr gqxzu924HsZwb7nsBGFarW WoVYwqQDZ5A50gk9K7TUEa NCMpHOY2mON1iD9spYnqew ogbGVmdDsg jgYwgXfaFAaiUVpxI021AY RvcDsnPkJpcnRoIERhdGU6 HY60SI14iQBes9M7kRL0P7 BhZGRpbmct rabraWM3JBQwFTMmiI61Tp 2crPaxLn1kTCJkHUO4YFUw bGCmY9UmuV4bOmXgVWFlZO CeO8NnyBJx BGzzR997UYydJyS8NYTxxu UjD1GsSZPhvAfcWkH5y3P1 Aq8SC0W4GN88CE58xZNdh9 G3vHO5Y5Fs JPRcttqmecgomGR0UDBeAQ NkxV48Hn4bzDvxNa9kMLOt VJS7AQDyaAVdN6HshJ0pQd AjMDAwMDAw A8KufYQdCUbmW086WZzjCd U0IRLrwySgE9MqWWIxdPas EaM0f5R3Cd9RXSb2OZ50ZF 65sRAjg6K4 sLI5N9GgJLMcgpittdfouS P3YZNlORHtsG26Rk0alJaj Rn7tWGCoBBX7ODFkpFGeC0 IurR7wTzEv KESrWLFoV0KviUZaAZlgS1 48BFumSqW5BDEsrmMsJ1Zm JUSwvThoQtM0w0G0Zr3ANR LrHP51JED0 bOR2SF15YK33M0WjKdbpmU FibGU+PHRhYmxlIHdpZHRo PQayWFFuDgKbpIheCG1sUv 9yZGVyLWNv kTgijJQeChIrv1vuWAPuGY jlRL7zxZltV3JheCV1ZGOv v4u2Ls53E10cT3ZobWC+PG FizXW8qTH2 nS4qLyIxNoW9XShtK135Fg GorNQlUcrbj5vea0mgxAo2 PuZ5QVEoygNsxTpuKIW0g6 PdOb72F80u IHdpZHRoPSIxNSUiIHZhbG hljp0awL6tSp0+PGNvbCB3 uKX7fD2yCtKcMnD2WGweZ2 49InRvcCIv Ipvtm2txh5dgeOb0PpUaOV OfbgPowGbqHQP4b2JyKg74 O0YuiYimj7VjZuz0zg22dP Vvt4J0iSR2 I9OmOYCjkvnqiKZknKpzVH 6cYVDxtgynFQWumX7gBXGj N0d2EjKvAsM8SSauT1Tmyg D4RRCydCNi TFinFYG1P92di9J0ESVsWL ZpKVD3aRT7wZ1wkWkmprra bGVmdDsgdmVydGljYWwtYW uaL083SGGl sRncAYWgrF0lXMHxqBQykH rhMR3yBOIfpexvXbDUH8hi FTHLGWpZICi2A8ZeTjd5GZ ChhSpcXH8i yTNfNQvgGk0egAkkbKdpPT 9aWSAqzyqsESTpfD6gNLXc lGBwnCmeDA8zRQGrogdev6 24KfVcTQL1 HFBzuUMoS4BloJ8mKlMaUQ LfWGFxZ8TxoUVfFAjcI362 MZkkEzI2PCLfnnCzG1QeLF FsaWduOiB0 f1N3La2rYY9mJq4sJQGqYH 91JR27dROjj8K8vAJ0D8Xm HZRmgpfnccqhsWJ9TEGiIV TpgV04tVAp VFxnWe1sd0E6i855JTYcSQ MhwU31Qg2ocWrsSDKgtPAQ bR7pfuvro0dnnidxAcTnHY ToAIj2PZq1 JJBuoPerMuHeXIY9CrN2GR G9rHKotH5fcPtdcbqluW2q Oyc+MtuuFVFxiiX9C5NbEz p1ZTMmzFse OT3wtIVdOKghBe6wsQzacF wfLW7uAVLbhfntWHHoyP8q JNAjvFFnbXlgFS8cAQVahu bln288YhPk EXV6FGRxbGUyA7DoyR8oRi AxSDVgZBChY9UqxTHfHCud T187XJrqHhB6DQKqjeKzT4 FsLWFsaWdu HkT3f8N3Nc1EQE4utIN0K4 JhVqu1RMBdbPlyKQ2pwYWq OOzhNr6ujNznyIomPK0rFN BpbjtwYWRk tL6lNRSipVJlaRvjQW7xCN Mzzsolu141PxGwYKV5QBVd dADfV8VuuT5uAbEbAZSdLJ NtB2IwnELt ZOhqA745CBkhDrS1IPZget KzG7VvXNZmkCxvRiN7g2V8 Zk9XsVUaFEPgLF21LU48NI 28T6CkOhig dGFibGU+PHRhYmxlIHdpZH NsAOmpSZOuOlFshZzpNA2b Cy3eTQYfNJVapFtihZXjZl Zrd1vyQICd BKpxCT1wdQpyE6GmwJK8RD Ngh9b7Nk49S47rQ2UirNH+ SKZcoXJ5jCS3sP0tZyDqJu V3OWugX909 XlAdhXYjKpbtw8nja5tndS g0YgLiOKHfyzLjjBhtDNO1 w8AlRz02V97hFLtjJBPmVN IyMCUiIHZh wIcutw0cmS6wSi9+PGNvbC V0rID0rH3dWuUkXhA5SMcl D913XxZbkAYuVmzsN20nP3 JvdXA+PHRy Zdf8SNEbaEcoNE7ujZJkMX kxRi4yYGR8WeHdIqXwHUwx H8EnRSEapcpxhptoqZJ3WD UiXWZhdV44 Tb3plHmbOy0iZQYjJDQ0LO VptEIdK6TuyS7xDgPvFFTs HRPeV1IwqUWaNKbgL115ZR lvQqV1QASd mfSlD9KgIVCfgIsfOsF6u0 A2Bk4FwCdinCRqQL7pCcKn XTi4D5VmQyj0SEHohLgeBR 0ncGFkZGlu Aa9kaKkyrMyzZW9fRLTgtq ysm253ZdQro7xzPLHqqETl MGkdQVN7I97po7C8GGWeZU FbKKT2qZQ1 dC2yfQwlkxwxfQVfhVwpxf LywGdfRWvjBKamE894SHMr qNztIsGTLyr9L8BmHbq6WN NuaGzlBJ3t vYPsFKcgJt9aeOowwGrhWC 8mZAUumbivp246OdImb4tn PPOcdKScJEmzVFU3D63su1 M1GPWsXBFy WAE1kWX9iP9agMmeqvytsJ VmdDsgdmVydGljYWwtYWxp R101EAVtqHjpYp1LOob4X8 OwEfj8XLFh mRedXT4ciFUcYNwxTf5yzZ dbsJfaIH2oXCXvoaahr873 SgDpf7zzSDIavRAdZYzmPZ D2X79hu9K5 YOMmUGQzVPT3uZW3aM9vyO lnbjogbGVmdDsgdmVydGlj WCsiSBtoP997BCCwmUoaFy BheWVyOjwv dGQ+HQ18oi85L2PqXxjnBw i4KINkRIY9yOS7aU8hWCGp BCfxy6K2jBU9H7LdsqTwsm 4da6rdQDDr ZTog (more content not included)... Normal [facility] Consent for Procedure/Surger yon 03-16-2021 Consent for Procedure/Surgery [id number]#1. 00CD:127 Normal [facility] IntraOperative Documentson 0 03-16-2021 IntraOperative Documents [id number]#1. 00CD:127 Normal [facility] Consent for Treatmenton Consent for Treatment [id number] 0CD:127 Normal [facility] Main OR Intraoperative Recor don 03-12-2021 Main OR Intraoperative Record IntraOp Document Type FTURO Summary Primary Physician: Maximo Ramos Jr., MD Finalized Date/Time: 03/12/21 13:52:16 Pt. Name: DANYELLE HASKINS/Sex: 1955 Female Med Rec #: [id number] Physician: Maximo Ramos Jr., MD Financial #: [id number] Pt. Type: O Room/Bed: / Admit/Disch: 03/12/21 12:55:35 - Institution: Case Times FTURO Entry 1 Patient Times In Room 03/12/21 13:44:00 Out Room 03/12/21 13:52:00 Procedure Times Start 03/12/21 13:48:00 Stop 03/12/21 13:50:00 Anesthesia Times Last Modified By: Savanna Azevedo RN 03/12/21 13:52:11 Case Attendance FTURO Entry 1 Entry 2 Entry 3 Case Attendee Richard Leal MD, Maximo Hines [facility], Savanna Azevedo RN, Savanna Solis Role Performed Surgeon - Primary Scrub - Primary Waste Machine Offbearer - Primary Time In 03/12/21 13:44:00 03/12/21 [...] Procedure Yes Primary Surgeon Richard Leal MD, aMximo Dhaliwal Start 03/12/21 13:48:00 Stop 03/12/21 13:50:00 [...] By: Savanna Azevedo RN 03/12/21 13:52 Normal [facility] Main OR Preoperative Recordo n 03-12-2021 Main OR Preoperative Record Holding Area Document Type FTURO Summary Primary Physician: Maximo Ramos Jr., MD Finalized Date/Time: 03/12/21 13:23:03 Pt. Name: DANYELLE HASKINS/Sex: 1955 Female Med Rec #: [id number] Physician: Maximo Ramos Jr., MD Financial #: [id number] Pt. Type: O Room/Bed: / Admit/Disch: 03/12/21 [...] 13:08 Savanna Azevedo RN 03/12/21 13:23 Normal [facility] Operative Reporton Operative Report Patient: DANYELLE [...] urine. The Urethra was dilated to: 28 Divehi w/ sounds. Devices Implanted: None. Removal: Cystoscope is removed, The patient tolerated it well. Postoperative Information Discharge: Patient is discharged home with antibiotic coverage, Follow up arranged. [facility] Comment on above: Result Comment: [...] complications The patient was prepped with Betadine. [facility] RAD - Ultrasound Reporton RAD - Ultrasound Report [id number]#1.0 0CD:[address] [facility] Physician Referralon 021 Physician Referral [id number] CD:[address] [facility] Ambulatory Clinical Summaryo n 02-24-2021 Ambulatory Clinical Summary {[id number] f-06}CD:[id number] Normal [facility] Patient Educationon 02-25-20 21 Patient Education [...] Document Reviewed: 12/01/2012 ExitCare? Patient Information ?[address] [facility] Urology Office/Clinic Noteon 02-24-2021 Urology [...] discuss treatment options to establish urologic care. [facility] Staff New patient Danyelle is a [...] Will order Local anesthesia. ABX sent to [facility] in [place]. Ordered: Urology Procedure Order US Renal 2. Dysuria (R30.0: Dysuria) Moderate. Ordered: Urnls Dip Stick Auto w/o Microscopy POC 73748 Urology Procedure Order US Renal 3. Nocturia [...] procedure, # 2 cap(s), Refills(s) 0, Pharmacy: [facility]/pharmacy #[id number], 172.7, cm, 02/24/21 8:22:00 EDT, Height/Length Dosing, 99.8, kg, 02/24/21 8:21:00 (more content not included)... Normal [facility] Comment on above: Result Comment: Elec [...] complications The patient was prepped with Betadine. [employer] CT UPPER EXTREMITY WO CONTRA ST RIGHTon 03-10-2020 CT UPPER EXTREMITY WO CONTRAST RIGHT [facility] Department of Radiology [address] [place] [address] ======== Patient Name: DANYELLE HASKINS : 1955 Sex: F Age: Race: White Pt. Location: Patient Status: O Ordered Date: 03/10/2020 2:25:00 PM Completed Date: 03/10/2020 04:00 PM Requesting Provider: JOE ZUNIGA Attending Provider: JOE ZUNIGA Report Copy To: YULISA BATRES Signs & Symptoms: S42.201A Unsp fracture of upper end of right humerus, init I10 History: [place] Patient to go to clinic after call results to [id number] ortho clinic NO MEDICARE/BC CPT CODE 05768 *MLA Comments: right shoulder Exam: CT UPPER [...] reports Electronically signed: Abdelrahman Constantino. Transcribed by: [email or web address], User Resident: ISABELL MARKHAM Electronically Signed by: ABDELRAHMAN CONSTANTINO @ 03/10/2020 04:46 PM I personally read this/these film(s) with this resident Normal [facility] Comment on above: Order Comment: right shoulder SHOULDER RIGHTon 03-10-[address] [facility] Department of Radiology [address] [place] [id number] ======== Patient Name: DANYELLE HASKINS : 1955 Sex: F Age: Race: White Pt. Location: Patient Status: O Ordered Date: 03/10/2020 2:05:00 PM Completed Date: 03/10/2020 02:13 PM Requesting Provider: JOE ZUNIGA Attending Provider: Report Copy To: Signs & Symptoms: S42.201A Unsp fracture of upper end of right humerus, init I10 History: [place] Comments: , Views (X-RAY, SHOULDER): Axillary , [...] reports Electronically signed: Abdelrahman Constantino. Transcribed by: [email or web address], User Resident: ISABELL MARKHAM Electronically Signed by: ABDELRAHMAN CONSTANTINO @ 03/10/2020 04:48 PM I personally read this/these film(s) with this resident Normal [facility] Comment on above: Order Comment: , [...] with no immediate complications Preparation: with Betadine. [employer] CBC, EDIF, PLATELETon 2018 ABSOLUTE BASOPHIL COUNT 0.[address] Basophils/100 WBC (Bld) 0.6 % 0 - 2 % [address] Differential cell count method Nom (Bld) AUTO DIFF % [address] Eosinophils #/vol (Bld) 0.00 10*3/uL X10 [address] Eosinophils/100 WBC (Bld) 1.0 % 0 - 11 % [address] Erythrocyte distribution width Ratio (RBC) 14.2 % 11.5 - 14.5 % [address] Hematocrit Volume Fraction (Bld) 33.5 % Low 36 - 48 % [address] Hemoglobin mass conc (Bld) 11.5 g/dL Low [address] Interpretation and review of laboratory results Abnormal [address] Lymphocytes #/vol (Bld) 0.70 10*3/uL X10 [address] Lymphocytes/100 WBC (Bld) 16.1 % Low 20 - 55 % [address] MCH Entitic mass (RBC) 34.6 pg 26 - [address] MCHC mass conc (RBC) 34.2 g/dL [place] [address] MCV Entitic volume (RBC) 101.1 fL High [address] Monocytes #/vol (Bld) 0.4 10*3/uL X10 [address] Monocytes/100 WBC (Bld) 9.9 % 0 - 10 % [address] Neutrophils #/vol (Bld) 3.3 10*3/uL [address] Neutrophils/100 WBC (Bld) 72.4 % 37 - 75 % [address] Platelet mean volume Entitic volume (Bld) 7.[address] Platelets #/vol (Bld) 191 10*3/uL [address] RBC #/vol (Bld) 3.31 10*6/uL Low [address] WBC #/vol (Bld) 4.5 10*3/uL [address] CBC, EDIF, PLATELETon 2018 ABSOLUTE BASOPHIL COUNT 0.[address] Basophils/100 WBC (Bld) 0.2 % 0 - 2 % [address] Differential cell count method Nom (Bld) AUTO DIFF % [address] Eosinophils #/vol (Bld) 0.00 10*3/uL X10 [address] Eosinophils/100 WBC (Bld) 0.1 % 0 - 11 % [address] Erythrocyte distribution width Ratio (RBC) 13.8 % 11.5 - 14.5 % [address] Hematocrit Volume Fraction (Bld) 30.2 % Low 36 - 48 % [address] Hemoglobin mass conc (Bld) 10.5 g/dL Low [address] Interpretation and review of laboratory results Abnormal [address] Lymphocytes #/vol (Bld) 0.50 10*3/uL X10 [address] Lymphocytes/100 WBC (Bld) 8.9 % Low 20 - 55 % [address] MCH Entitic mass (RBC) 34.8 pg 26 - [address] MCHC mass conc (RBC) 34.8 g/dL [place] [address] MCV Entitic volume (RBC) 99.[address] Monocytes #/vol (Bld) 0.6 10*3/uL X10 [address] Monocytes/100 WBC (Bld) 10.2 % High 0 - 10 % [address] Neutrophils #/vol (Bld) 4.5 10*3/uL [address] Neutrophils/100 WBC (Bld) 80.6 % High 37 - 75 % [address] Platelet mean volume Entitic volume (Bld) 7.[address] Platelets #/vol (Bld) 181 10*3/uL [address] RBC #/vol (Bld) 3.02 10*6/uL Low [address] WBC #/vol (Bld) 5.6 10*3/uL [address] CBC, EDIF, PLATELETon 2018 ABSOLUTE BASOPHIL COUNT 0.[address] Basophils/100 WBC (Bld) 0.2 % 0 - 2 % [address] Differential cell count method Nom (Bld) AUTO DIFF % [address] Eosinophils #/vol (Bld) 0.00 10*3/uL X10 [address] Eosinophils/100 WBC (Bld) 0.7 % 0 - 11 % [address] Erythrocyte distribution width Ratio (RBC) 13.9 % 11.5 - 14.5 % [address] Hematocrit Volume Fraction (Bld) 33.6 % Low 36 - 48 % [address] Hemoglobin mass conc (Bld) 11.5 g/dL Low [address] Interpretation and review of laboratory results Abnormal [address] Lymphocytes #/vol (Bld) 0.70 10*3/uL X10 [address] Lymphocytes/100 WBC (Bld) 14.4 % Low 20 - 55 % [address] MCH Entitic mass (RBC) 34.7 pg 26 - [address] MCHC mass conc (RBC) 34.1 g/dL ONT[place] [address] MCV Entitic volume (RBC) 101.8 fL High [address] Monocytes #/vol (Bld) 0.5 10*3/uL X10 [address] Monocytes/100 WBC (Bld) 9.8 % 0 - 10 % [address] Neutrophils #/vol (Bld) 3.7 10*3/uL [address] Neutrophils/100 WBC (Bld) 74.9 % 37 - 75 % [address] Platelet mean volume Entitic volume (Bld) 7.2 fL Low [address] Platelets #/vol (Bld) 202 10*3/uL [address] RBC #/vol (Bld) 3.30 10*6/uL [address] WBC #/vol (Bld) 4.9 10*3/uL [address] REPEAT ABO/RH (D) TYPINGon 0 11-21-2018 ABO and Rh group Nom (Bld ) Positive [address] SCREEN: MRSA ONLY, NARES (IS OLATION SCREEN)on 11-21-2018 MRSA isol Org specific cx Ql (Nose) Negative [address] STAPHYOCOCCUS AUREUS BY PCR Negative [address] Comment on above: TESTING PERFORMED BY [...] Panelon 10-1 Calcium 9.2 mg/dL Normal 8.4-10.2 [facility] Comment on above: Performed By: #### C HEM8 ####Unless otherwise noted, all testing performed by [address], [place] [phone]: [id number] Director: Ramon Araujo M.D. Chloride 110 mmol/L High 98-108 [facility] Comment on above: Performed By: #### C HEM8 ####Unless otherwise noted, all testing performed by [place] [address], [place] [phone]: [id number] Director: Ramon Araujo M.D. CO2 27 mmol/L Normal 21-32 [facility] Comment on above: Performed By: #### C HEM8 ####Unless otherwise noted, all testing performed by [address] [phone]: [id number] Director: Ramon Araujo M.D. Creatinine 0.60 mg/dL Normal 0.60-1.20 [facility] Comment on above: Performed By: #### C HEM8 ####Unless otherwise noted, all testing performed by [address] [phone]: [id number] Director: Ramon Araujo M.D. eGFR (black) mL/min/{1.73_m2} Normal [facility] Comment on above: Result Comment: Afri can Nam[place]ian GFR Calc Performed By: #### C HEM8 ####Unless otherwise noted, all testing performed by [address] [phone]: [id number] Director: Ramon Araujo M.D. eGFR (non-black) mL/min/{1.73_m2} Normal [facility] Comment on above: Result Comment: Non- [...] ####Unless otherwise noted, all testing performed by [address], [place] [phone]: [id number] Director: Ramon Araujo M.D. Glucose mass conc 87 mg/dL Normal 70-99 [facility] Comment on above: Result Comment: This test result might be falsely depressed or falsely elevated onsamples drawn from patients taking Sulfasalazine and Sulfapyridine.Venipuncture should occur prior to taking either of these drugs. Performed By: #### C HEM8 ####Unless otherwise noted, all testing performed by [address] [phone]: [id number] Director: Ramon Araujo M.D. Potassium molar conc 4.2 mmol/L Normal 3.5-5.1 [facility] Comment on above: Performed By: #### C HEM8 ####Unless otherwise noted, all testing performed by [address] [phone]: [id number] Director: Ramon Araujo M.D. Sodium 143 mmol/L Normal 135-145 [facility] Comment on above: Performed By: #### C HEM8 ####Unless otherwise noted, all testing performed by [address] [phone]: [id number] Director: Ramon Araujo M.D. Urea nitrogen 10 mg/dL Normal 8-25 [facility] Comment on above: Performed By: #### C HEM8 ####Unless otherwise noted, all testing performed by [address] [phone]: [id number] Director: Ramon Van, M.D. [facility] Repor mireya 08-15-2017 [facility] Report Type: OrthopedicDictated by: To be signed by: Transcribed by: Transcribed D/ Dictation D/ Report: DATE OF VISIT: 08/11/2017 HISTORY OF PRESENT ILLNESS: Ms. Haskins underwent left patellar tendon repair and inferior partial patellectomy on 07/18/2017 three weeks ago. She is doing well. She is at a residential with a knee immobilizer locked out in extension and has been non-weightbearing. She is doing very well. She is happy with her recovery to date. She is having minimal pain, using only Tylenol at this time. She is planning to be discharged from the residential next week when she has a wheelchair [...] her that she may shower at the residential only using a shower chair with a shower stool. The knee should be in extension before the brace comes off and should remain in extension until the brace goes back on. She should not stand while not wearing the brace. This was all relayed via instructions to the residential. We will see her back in three weeks. Dictated by KAREEM Croft, for Dr. Mcclure. 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 She is an established patient of [facility]. She was last seen on 04/27/2017, diagnosed [...] patient is followed by Dr. Monaco, a wine maker and by Dr. Lili Parks, a neurologist. [...] of surgery and 2 weeks postoperatively. 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 Normal [facility] Repor ton 07-26-2017 Health [...] use. The patient is seen by a wine maker, has a pain specialist, and a neurologist. [...] 2) Orders reviewed and continue same. Normal [place] C. difficile Assayon 017 C. difficile interpretation Negative Normal [facility] Comment on above: Result Comment: Rapi d test procedural control acceptable. Performed By: #### z CDIF ####Unless otherwise noted, all testing performed by [address] [phone]: [id number] Director: Ramon Araujo M.D. Specimen Acceptable (CDIF)on 07-24-2017 Specimen Acceptable (CDIF) YES Normal [facility] Comment on above: Result Comment: C. d ifficile testing result(s) to follow. Performed By: #### C DSPEC ####Unless otherwise noted, all testing performed by [address] [phone]: [id number] Director: Ramon Araujo M.D. CBC with Diffon 07-23-2017 Basophils Auto #/vol (Bld) 0.0 K/mcL Normal 0-0.2 [facility] Comment on above: Performed By: #### C BCDIF, CMET, TSH ####Unless otherwise noted, all testing performed by [address] [phone]: [id number] Director: Ramon Araujo M.D. Basophils/100 WBC Auto (Bld) 0.5 % Normal [facility] Comment on above: Performed By: #### C BCDIF, CMET, TSH ####Unless otherwise noted, all testing performed by [address] [phone]: [id number] Director: Ramon Araujo M.D. Eosinophils 0.1 K/mcL Normal 0-0.5 [facility] Comment on above: Performed By: #### C BCDIF, CMET, TSH ####Unless otherwise noted, all testing performed by [address] [phone]: [id number] Director: Ramon Araujo M.D. Eosinophils/100 leukocytes 1.7 % Normal [facility] Comment on above: Performed By: #### C BCDIF, CMET, TSH ####Unless otherwise noted, all testing performed by [address]CLIA: [id number] Director: Ramon Araujo M.D. Erythrocyte distribution width Auto Ratio (RBC) 14.6 % High 10.0-14.4 [facility] Comment on above: Performed By: #### C BCDIF, CMET, TSH ####Unless otherwise noted, all testing performed by [place] [phone]: [id number] Director: Ramon Araujo M.D. Erythrocytes (RBC) 3.32 M/mcL Low 3.7-5.0 [facility] Comment on above: Performed By: #### C BCDIF, CMET, TSH ####Unless otherwise noted, all testing performed by [address] [phone]: [id number] Director: Ramon Araujo M.D. Hematocrit (HCT) 33.9 % Low 34.4-44.8 [facility] Comment on above: Performed By: #### C BCDIF, CMET, TSH ####Unless otherwise noted, all testing performed by [address] [phone]: [id number] Director: Ramon Araujo M.D. Hemoglobin mass conc (Bld) 11.8 g/dL Normal 11.6-15.4 [facility] Comment on above: Performed By: #### C BCDIF, CMET, TSH ####Unless otherwise noted, all testing performed by [address] [phone]: [id number] Director: Ramon Araujo M.D. Lymphocytes 0.8 K/mcL Low 1.0-3.7 [facility] Comment on above: Performed By: #### C BCDIF, CMET, TSH ####Unless otherwise noted, all testing performed by [address] [phone]: [id number] Director: Ramon Araujo M.D. Lymphocytes/100 leukocytes 18.3 % Normal [facility] Comment on above: Performed By: #### C BCDIF, CMET, TSH ####Unless otherwise noted, all testing performed by [address] [phone]: [id number] Director: Ramon Araujo M.D. MCH 35.6 pg High 27.9-33.9 [facility] Comment on above: Performed By: #### C BCDIF, CMET, TSH ####Unless otherwise noted, all testing performed by [address] [phone]: [id number] Director: Ramon Araujo M.D. [facility] mass conc (RBC) 34.8 g/dL Normal 33.1-35.1 [facility] Comment on above: Performed By: #### C BCDIF, CMET, TSH ####Unless otherwise noted, all testing performed by [place] [phone]: [id number] Director: Ramon Araujo M.D. MCV 102.1 fL High 82.6-98.9 [facility] Comment on above: Performed By: #### C BCDIF, CMET, TSH ####Unless otherwise noted, all testing performed by [address]CLIA: [id number] Director: Ramon Araujo M.D. Monocytes 0.6 K/mcL Normal 0.1-0.6 [facility] Comment on above: Performed By: #### C BCDIF, CMET, TSH ####Unless otherwise noted, all testing performed by [address]8509CLIA: [id number] Director: Ramon Araujo M.D. Monocytes/100 leukocytes 13.1 % Normal [facility] Comment on above: Performed By: #### C BCDIF, CMET, TSH ####Unless otherwise noted, all testing performed by [place] [address]CLIA: [id number] Director: Ramon Araujo M.D. Neutrophils 3.1 K/mcL Normal 1.2-6.9 [facility] Comment on above: Performed By: #### C BCDIF, CMET, TSH ####Unless otherwise noted, all testing performed by [address] [phone]: [id number] Director: Ramon Araujo M.D. Platelet mean volume (PMV) 7.4 fL Normal 7.0-10.6 [facility] Comment on above: Performed By: #### C BCDIF, CMET, TSH ####Unless otherwise noted, all testing performed by [address] [phone]: [id number] Director: Ramon Araujo M.D. Platelets 229 K/mcL Normal 162-402 [facility] Comment on above: Performed By: #### C BCDIF, CMET, TSH ####Unless otherwise noted, all testing performed by [address] [phone]: [id number] Director: Ramon Araujo M.D. Segmented Neut % 66.4 % Normal [facility] Comment on above: Performed By: #### C BCDIF, CMET, TSH ####Unless otherwise noted, all testing performed by [address] [phone]: [id number] Director: Ramon Araujo M.D. WBC (Leukocytes) 4.6 K/mcL Normal 3.4-10.6 [facility] Comment on above: Performed By: #### C BCDIF, CMET, TSH ####Unless otherwise noted, all testing performed by [place] [phone]: [id number] Director: Ramon Araujo M.D. [facility] Metabolic [facility] 07-23-2017 Alanine aminotransferase (ALT) 27 U/L Normal 14-65 [facility] Comment on above: Result Comment: This test result might be falsely depressed or falsely elevated onsamples drawn from patients taking Sulfasalazine and Sulfapyridine.Venipuncture should occur prior to taking either of these drugs. Performed By: #### C BCDIF, CMET, TSH ####Unless otherwise noted, all testing performed by [address] [phone]: [id number] Director: Ramon Araujo M.D. Albumin 2.8 g/dL Low 3.2-5.2 [facility] Comment on above: Performed By: #### C BCDIF, CMET, TSH ####Unless otherwise noted, all testing performed by [address] [phone]: [id number] Director: Ramon Araujo M.D. Alkaline phosphatase (ALP) 53 U/L Normal 40-150 [facility] Comment on above: Performed By: #### C BCDIF, CMET, TSH ####Unless otherwise noted, all testing performed by [address] [phone]: [id number] Director: Ramon Araujo M.D. Aspartate aminotransferase (AST) 32 U/L Normal 0-45 [facility] Comment on above: Result Comment: This test result might be falsely depressed or falsely elevated onsamples drawn from patients taking Sulfasalazine and Sulfapyridine.Venipuncture should occur prior to taking either of these drugs. Performed By: #### C BCDIF, CMET, TSH ####Unless otherwise noted, all testing performed by [address] [phone]: [id number] Director: Ramon Araujo M.D. Bilirubin (total) 0.9 mg/dL Normal 0.3-1.2 [facility] Comment on above: Performed By: #### C BCDIF, CMET, TSH ####Unless otherwise noted, all testing performed by [place] [phone]: [id number] Director: Ramon Araujo M.D. Calcium 8.7 mg/dL Normal 8.4-10.2 [facility] Comment on above: Performed By: #### C BCDIF, CMET, TSH ####Unless otherwise noted, all testing performed by [place] [phone]: [id number] Director: Ramon Araujo M.D. Chloride 108 mmol/L Normal 98-108 [facility] Comment on above: Performed By: #### C BCDIF, CMET, TSH ####Unless otherwise noted, all testing performed by [address] [phone]: [id number] Director: Ramon Araujo M.D. CO2 26 mmol/L Normal 21-32 [facility] Comment on above: Performed By: #### C BCDIF, CMET, TSH ####Unless otherwise noted, all testing performed by [address] [phone]: [id number] Director: Ramon Araujo M.D. Creatinine 0.57 mg/dL Low 0.60-1.20 [facility] Comment on above: Performed By: #### C MARTHA DOUGHERTY, TSH ####Unless otherwise noted, all testing performed by [address] [phone]: [id number] Director: Ramon Araujo M.D. eGFR (black) mL/min/{1.73_m2} Normal [facility] Comment on above: Result Comment: Afri can [place]ian GFR Calc Performed By: #### C MARTHA DOUGHERTY, TSH ####Unless otherwise noted, all testing performed by [address] [phone]: [id number] Director: Ramon Araujo M.D. eGFR (non-black) mL/min/{1.73_m2} Normal [facility] Comment on above: Result Comment: Non- [...] ####Unless otherwise noted, all testing performed by [address] [phone]: [id number] Director: Ramon Araujo M.D. Glucose mass conc 86 mg/dL Normal 70-99 [facility] Comment on above: Result Comment: This test result might be falsely depressed or falsely elevated onsamples drawn from patients taking Sulfasalazine and Sulfapyridine.Venipuncture should occur prior to taking either of these drugs. Performed By: #### C BCDIF, CMET, TSH ####Unless otherwise noted, all testing performed by [address] [phone]: [id number] Director: aRmon Araujo M.D. Potassium molar conc 3.7 mmol/L Normal 3.5-5.1 [facility] Comment on above: Performed By: #### C BCDIF, CMET, TSH ####Unless otherwise noted, all testing performed by [place] [phone]: [id number] Director: Ramon Araujo M.D. Protein 6.1 g/dL Normal 6.0-8.0 [facility] Comment on above: Performed By: #### C BCDIF, CMET, TSH ####Unless otherwise noted, all testing performed by [place] [phone]: [id number] Director: Ramon Araujo M.D. Sodium 141 mmol/L Normal 135-145 [facility] Comment on above: Performed By: #### C BCDIF, CMET, TSH ####Unless otherwise noted, all testing performed by [place] [phone]: [id number] Director: Ramon Araujo M.D. Urea nitrogen 11 mg/dL Normal 8-25 [facility] Comment on above: Performed By: #### C BCDIF, CMET, TSH ####Unless otherwise noted, all testing performed by [place] [phone]: [id number] Director: Ramon Araujo M.D. TSHon 07-23-2017 Thyroid stimulating hormone (TSH) 1.67 uIU/mL Normal 0.320-5.000 [facility] Comment on above: Performed By: #### C BCDIF, CMET, TSH ####Unless otherwise noted, all testing performed by [place] [address] [address] [place], [place] [phone]: [id number] Director: Ramon Araujo M.D. [facility] 07-21-2017 [facility] NOTES Normal [facility] NURSING NOTEon 07-21-2017 [facility] NOTES Normal [facility] Normal [facility] Normal [facility] Normal [facility] Normal [facility] NOT[facility] Normal [facility] PLAN OF CAREon 07-21-2017 [facility] CAC NOTES Normal [facility] NOT[facility] Normal [facility] NOTES Normal [facility] NOT[facility] Normal [facility] NOTES Normal [facility] NOT[facility] Normal [facility] PROGRESSon 07-21-2017 [facility] NOTES Normal [facility] NOT[facility] Normal [facility] NOT[facility] Normal [facility] NOT[facility] Normal [facility] NURSING NOTEon 07-20-2017 [facility] NOTES Normal [facility] NOT[facility] Normal [facility] NOT[facility] Normal [facility] NOT[facility] Normal [facility] PLAN OF CAREon 07-20-2017 [facility] NOTES Normal [facility] Normal [facility] NOTES Normal [facility] NOT[facility] Normal [facility] PROGRESSon 07-20-2017 [facility] NOTES Normal [facility] NOT[facility] Normal [facility] NOT[facility] Normal [facility] Normal [facility] Normal [facility] Normal [facility] Normal [facility] Normal [facility] Normal [facility] Normal [facility] Normal [facility] Anes Post-opon 2017 [facility] CAC NOTES Normal [facility] CONSULTon 2017 [facility] NOTES Normal [facility] Certificatioon 2017 [facility] NOTES Normal [facility] NURSING NOTEon 2017 [facility] NOTES Normal [facility] Normal [facility] Normal [facility] Normal [facility] NOT[facility] Normal [facility] Normal [facility] Normal [facility] PLAN OF CAREon 2017 [facility] CAC NOTES Normal [facility] Normal [facility] NOT[facility] Normal [facility] Normal [facility] PROGRESSon 2017 [facility] NOT[facility] Normal [facility] Normal [facility] Normal [facility] Normal [facility] Normal [facility] Normal [facility] Normal [facility] Normal [facility] BRIEF OP NOTon 07-18-2017 [facility] CAC NOTES Normal [facility] OP NOTEon 07-18-2017 [facility] NOTES Normal [facility] OR NURSINGon 07-18-2017 [facility] CAC NOTES Normal [facility] XR KNEE LEFT 2 VIEWSon 07-18 XR [...] arthroplasty changes as above in satisfactory alignment. [facility] PROGRESSon 07-01-2017 [facility] NOTES [facility] Vital Signs Date Time Vital Sign Value Performing Clinician Facility 10-15-2024 14:08-0500 Body mass index (BMI) [Ratio] 34.67 kg/m2 Christopher Moni DO Work Phone: [facility] 10-15-2024 14:08-0500 Body weight 103.42 kg Christopher Moni DO Work Phone: [facility] 10-15-2024 14:08-0500 Diastolic blood pressure 82 mm[Hg] Christopher Moni DO Work Phone: [facility] 10-15-2024 14:08-0500 Heart rate 76 /min Christopher Moni DO Work Phone: [facility] 10-15-2024 14:08-0500 SaO2% (BldA) [Mass fraction] 93 % Christopher Moni DO Work Phone: [facility] 10-15-2024 14:08-0500 Systolic blood pressure 148 mm[Hg] Christopher Moni DO Work Phone: [facility] 09-06-2024 14:36-0400 Body height 172.7 cm Elie Harper DPM Work Phone: [facility] 09-06-2024 14:36-0400 Body mass index (BMI) [Ratio] 34.21 kg/m2 Elie Harper DPM Work Phone: [facility] 09-06-2024 14:36-0400 Body weight 102.06 kg Elie Harper DPM Work Phone: [facility] 09-06-2024 14:36-0400 Diastolic blood pressure 80 mm[Hg] Elie Harper DPM Work Phone: [facility] 09-06-2024 14:36-0400 Heart rate 82 /min Elie Harper DPM Work Phone: [facility] 09-06-2024 14:36-0400 Systolic blood pressure 129 mm[Hg] Elie Harper DPM Work Phone: [facility] 08-16-2024 11:30-0400 Body height 172.7 cm Elie Harper DPM Work Phone: [facility] 08-16-2024 11:30-0400 Body mass index (BMI) [Ratio] 34.21 kg/m2 Elie Harper DPM Work Phone: [facility] 08-16-2024 11:30-0400 Body weight 102.06 kg Elie Harper DPM Work Phone: [facility] 08-16-2024 11:30-0400 Respiratory rate 17 /min Elie Harper DPM Work Phone: [facility] 07-16-2024 13:00-0400 Body height 172.7 cm Gaby Christianson ACCOUNTS RECEIVABLE ACCOUNTANT Work Phone: [facility] 07-16-2024 13:00-0400 Body mass index (BMI) [Ratio] 34.21 kg/m2 Gaby Christianson ACCOUNTS RECEIVABLE ACCOUNTANT Work Phone: [facility] 07-16-2024 13:00-0400 Body weight 102.06 kg Gaby Christianson ACCOUNTS RECEIVABLE ACCOUNTANT Work Phone: [facility] 07-16-2024 13:00-0400 Diastolic blood pressure 92 mm[Hg] Gaby Christianson ACCOUNTS RECEIVABLE ACCOUNTANT Work Phone: [facility] 07-16-2024 13:00-0400 Systolic blood pressure 142 mm[Hg] Gaby Christiansno ACCOUNTS RECEIVABLE ACCOUNTANT Work Phone: [facility] 05-31-2024 09:44-0400 Body height 170.2 cm New Mcclure MD Work Phone: [facility] 05-31-2024 09:44-0400 Body mass index (BMI) [Ratio] 37.09 kg/m2 New Mcclure MD Work Phone: [facility] 05-31-2024 09:44-0400 Body temperature 97.5 [degF] New Mcclure MD Work Phone: [facility] [employer] 05-31-2024 09:44-0400 Body weight 107.41 kg New Mcclure MD Work Phone: [employer] [facility] 03-22-2024 15:49-0400 Body height 170.2 cm New Mcclure MD Work Phone: [facility] [employer] 03-22-2024 15:49-0400 Body mass index (BMI) [Ratio] 35.4 kg/m2 New Mcclure MD Work Phone: [employer] [facility] 03-22-2024 15:49-0400 Body weight 102.51 kg New Mcclure MD Work Phone: [employer] [facility] 02-23-2024 11:02-0400 Body height 170.2 cm [employer] TIMBER HARVESTER OPERATOR-SERVICE OPERATOR Work Phone: [employer] 02-23-2024 11:02-0400 Body mass index (BMI) [Ratio] 35.4 kg/m2 Rajinder Lookwider TIMBER HARVESTER OPERATOR-SERVICE OPERATOR Work Phone: [facility] 02-23-2024 11:02-0400 Body weight 102.51 kg [employer] TIMBER HARVESTER OPERATOR-SERVICE OPERATOR Work Phone: [facility] 11-03-2023 10:09-0500 Diastolic blood pressure 89 mm[Hg] Pepe Chaka [employer] [facility] 11-03-2023 10:09-0500 Systolic blood pressure 191 mm[Hg] Pepe Chaka [employer] [facility] 11-03-2023 09:53-0500 Body height 170.2 cm Pepe Chaka [employer] [facility] 11-03-2023 09:53-0500 Body mass index (BMI) [Ratio] 34.46 kg/m2 Pepe Chaka [employer] [facility] 11-03-2023 09:53-0500 Body weight 99.79 kg Pepe Chaka [employer] [facility] 11-03-2023 09:53-0500 Heart rate 67 /min Pepe Chaka [employer] [facility] Comment on above: regular 11-03-2023 09:53-0500 Respiratory rate 20 /min Pepe Chaka [employer] [facility] Comment on above: lungs cta 11-03-2023 09:53-0500 SaO2% (BldA) [Mass fraction] 96 % Pepe Chaka [employer] [facility] 09-01-2023 12:59-0400 Body height 170.2 cm New Mcclure MD Work Phone: [facility] 09-01-2023 12:59-0400 Body mass index (BMI) [Ratio] 35.4 kg/m2 New Mcclure MD Work Phone: [facility] 09-01-2023 12:59-0400 Body temperature 98.2 [degF] New Mcclure MD Work Phone: [facility] 09-01-2023 12:59-0400 Body weight 102.51 kg New Mcclure MD Work Phone: [facility] 05-19-2023 14:41-0400 Body height 172.7 cm Rajinder Abby TIMBER HARVESTER OPERATOR-SERVICE OPERATOR Work Phone: [facility] 05-19-2023 14:41-0400 Body mass index (BMI) [Ratio] 34.36 kg/m2 Rajinder Mora TIMBER HARVESTER OPERATOR-SERVICE OPERATOR Work [facility]: [facility] 05-19-2023 14:41-0400 Body temperature 97.59 [degF] Rajinder Mora TIMBER HARVESTER OPERATOR-SERVICE OPERATOR Work Phone: [facility] 05-19-2023 14:41-0400 Body weight 102.51 kg Rajinder Abby TIMBER HARVESTER OPERATOR-SERVICE OPERATOR Work Phone: [employer] 08-31-2021 15:30-0400 Body height 173.99 cm Stephen Alicea Other [facility] Other 08-31-2021 15:30-0400 Body mass index (BMI) [Ratio] 30.26 kg/m2 Stephen Alicea Other [facility] Other 08-31-2021 15:30-0400 Body weight 91.63 kg Stephen Alicea Other [facility] Other 08-31-2021 15:30-0400 Diastolic blood pressure 87 mm[Hg] Stephen Alicea Other [facility] Other 08-31-2021 15:30-0400 Systolic blood pressure 145 mm[Hg] Stephen Alicea Other [facility] Other 03-11-2021 13:50-0400 Body height 172.7 cm New Mcclure MD Work Phone: [employer] [facility] 03-11-2021 13:50-0400 Body mass index (BMI) [Ratio] 33.45 kg/m2 New Mcclure MD Work Phone: [employer] [facility] 03-11-2021 13:50-0400 Body temperature 97 [degF] New Mcclure MD Work Phone: [employer] [facility] 03-11-2021 13:50-0400 Body weight 99.79 kg New Mcclure MD Work Phone: [employer] [facility] 11-19-2020 14:21-0500 BMI (Body Mass Index) 34.1 kg/m2 [facility] [employer] [facility] 11-19-2020 14:21-0500 Body Temperature 97.11 [degF] [facility] [facility] 11-19-2020 14:21-0500 Body weight 100.25 kg [facility] [employer] [facility] 11-19-2020 14:21-0500 Height 171.5 cm [facility] [employer] [facility] 11-21-2019 13:29-0500 BMI (Body Mass Index) 33.42 kg/m2 [facility] 11-21-2019 13:29-0500 Body Temperature 97 [degF] [facility] 11-21-2019 13:29-0500 Body weight 99.7 kg [facility] 11-21-2019 13:29-0500 Height 172.7 cm [facility] 04-18-2019 16:28-0400 BMI (Body Mass Index) 31.02 kg/m2 [facility] 04-18-2019 16:28-0400 Body Temperature 97.59 [degF] [facility] 04-18-2019 16:28-0400 Height 172.7 cm [facility] 04-18-2019 16:28-0400 Weight 92.53 kg [facility] 03-01-2019 14:14-0400 BMI (Body Mass Index) 31.63 kg/m2 [facility] 03-01-2019 14:14-0400 Body Temperature 97.39 [degF] [facility] 03-01-2019 14:14-0400 Height 172.7 cm [facility] 03-01-2019 14:14-0400 Weight 94.35 kg [facility] 01-03-2019 15:24-0500 BMI (Body Mass Index) 31.63 kg/m2 [facility] 01-03-2019 15:24-0500 Body Temperature 97.3 [degF] [facility] 01-03-2019 15:24-0500 Body weight 94.35 kg [facility] 01-03-2019 15:24-0500 Height 172.7 cm [facility] 12-14-2018 14:44-0500 BMI (Body Mass Index) 30.87 kg/m2 [facility] Work Phone: 12-14-2018 14:44-0500 Body Temperature 97.9 [degF] [facility] Work Phone: 12-14-2018 14:44-0500 Height 172.7 cm [facility] Work Phone: 12-14-2018 14:44-0500 Weight 92.08 kg [facility] Work Phone: 11-24-2018 16:57-0500 Body Temperature 97 [degF] [facility] Work Phone: 11-24-2018 16:57-0500 BP Diastolic 77 mm[Hg] [facility] Work Phone: 11-24-2018 16:57-0500 BP Systolic 155 mm[Hg] [facility] Work Phone: 11-24-2018 16:57-0500 Pulse (Heart Rate) 79 /min [facility] Work Phone: 11-24-2018 16:57-0500 Pulse Oximetry 99 % [facility] Work Phone: 11-24-2018 16:57-0500 Respiratory Rate 18 /min [facility] Work Phone: 11-21-2018 09:00-0500 BMI (Body Mass Index) 32.19 kg/m2 [facility] Work Phone: 11-21-2018 09:00-0500 Height 172.7 cm [facility] Work Phone: 11-21-2018 09:00-0500 Weight 96.03 kg [facility] Work Phone: 10-23-2018 08:49-0500 BP Diastolic 75 mm[Hg] Pepe [employer] [facility] Work Phone: 10-23-2018 08:49-0500 BP Systolic 159 mm[Hg] Pepe Chaka [employer] [facility] Work Phone: 10-23-2018 08:49-0500 Pulse (Heart Rate) 100 /min Pepe Chaka [employer] [facility] Work Phone: 10-13-2018 09:01-0500 BMI (Body Mass Index) 31.93 kg/m2 Pepe Chaka [employer] [facility] Work Phone: 10-13-2018 09:01-0500 Body Temperature 97.81 [degF] Pepe Chaka [employer] [facility] Work Phone: 10-13-2018 09:01-0500 Height 172.7 cm Pepe Chaka [employer] [facility] Work Phone: 10-13-2018 09:01-0500 Pulse Oximetry 99 % Pepe Chaka [employer] [facility] Work Phone: 10-13-2018 09:01-0500 Respiratory Rate 16 /min Pepe Chaka [employer] [facility] Work Phone: 10-13-2018 09:01-0500 Weight 95.25 kg Pepe Chaka [employer] [facility] Work Phone: Encounters Encounter Date Encounter Type Care Provider Facility Start: 10-15-2024 End: 10-15-2024 Bamboo flowsheet Shante Montenegro DO Work Phone: [facility] Start: 10-15-2024 End: 10-15-2024 Bamboo flowsheet Shante Montenegro DO Work Phone: [facility] Start: 10-15-2024 End: 10-15-2024 Office outpatient visit 25 minutes Shante Montenegro DO Work Phone: [facility] Comment on above: Paresthesias (Primar y Dx); Blepharospasm; Spinal stenosis of lumbar region, unspecified whether neurogenic claudication present Start: 10-15-2024 End: 10-15-2024 ambulatory SHANTE MONTENEGRO Not Available Start: 09-06-2024 End: 09-06-2024 Patient encounter procedure Elie Harper DPM Work Phone: [facility] Comment on above: 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 (Primary Dx); Acquired deformity of left toe Start: 09-06-2024 End: 09-06-2024 ambulatory ELIE HARPER Not Available Start: 09-06-2024 End: 09-06-2024 Bamboo flowsheet Elie Harper DPM Work Phone: [facility] Start: 09-06-2024 End: 09-06-2024 Bamboo flowsheet Elie Harper DPM Work Phone: [facility] Start: 08-16-2024 End: 08-16-2024 Bamboo flowsheet Elie Harper DPM Work Phone: [facility] Start: 08-16-2024 End: 08-16-2024 Bamboo flowsheet Elie Harper DPM Work Phone: [facility] Start: 08-16-2024 End: 08-16-2024 Office outpatient visit 15 minutes Elie Harper DPM Work Phone: [facility] Comment on above: Abscess of toe, righ t (Primary Dx); Acquired deformity of left toe Start: 08-16-2024 End: 08-16-2024 ambulatory ELIE HARPER Not Available Start: 08-02-2024 End: 08-02-2024 ambulatory ELIE HARPER Not Available Start: 07-31-2024 End: 07-31-2024 ambulatory RAMON BARRETO Not Available Start: 07-26-2024 End: 07-26-2024 ambulatory MAGALIE KAUFMAN Not Available Start: 2024 End: 2024 Refill Elie Estrada MA [facility] Comment on above: Polyneuropathy (Prim ric Dx); Spinal stenosis of lumbar region, unspecified whether neurogenic claudication present; Degenerative disc disease, lumbar Start: 07-18-2024 End: 07-18-2024 ambulatory ELIE HARPER Not Available Start: 07-16-2024 End: 07-16-2024 Office outpatient visit 15 minutes Gaby Christianson ACCOUNTS RECEIVABLE ACCOUNTANT Work Phone: [facility] Comment on above: Spinal stenosis of l umbar region, unspecified whether neurogenic claudication present (Primary Dx); Degenerative disc disease, lumbar; Facet arthritis of lumbar region; Blepharospasm; Polyneuropathy; Paresthesias Start: 07-16-2024 End: 07-16-2024 ambulatory GABY SAMMY Not Available Start: 06-28-2024 End: 06-28-2024 ambulatory ELIE HARPER Not Available Start: 05-31-2024 End: 05-31-2024 Office outpatient visit 15 minutes New Mcclure MD Work Phone: [facility] Comment on above: Pain in both knees, unspecified chronicity (Primary Dx) Start: 05-31-2024 End: 05-31-2024 Subsequent hospital visit by physician New Mcclure MD Work Phone: [facility] Start: 04-26-2024 End: 04-26-2024 ambulatory MAGALIE KAUFMAN Not Available Start: 04-19-2024 End: 04-19-2024 Office outpatient visit 25 minutes New Mcclure MD Work Phone: [facility] Comment on above: Pain in both knees, unspecified chronicity (Primary Dx) Start: 04-19-2024 End: 04-19-2024 Subsequent hospital visit by physician New Mcclure MD Work Phone: [facility] Start: 04-19-2024 ambulatory [facility] Start: 03-22-2024 End: 03-22-2024 Office outpatient visit 15 minutes New Mcclure MD Work Phone: [facility] Comment on above: Pain in both knees, unspecified chronicity (Primary Dx) Start: 03-22-2024 End: 03-22-2024 Subsequent hospital visit by physician New Mcclure MD Work Phone: [facility] Start: 03-22-2024 ambulatory [facility] Start: 02-23-2024 End: 02-23-2024 Postop follow up visit related to original px Rajinder Abbydestinee BAH-SERVICE OPERATOR Work Phone: [facility] Comment on above: Hx of total knee art hroplasty, left (Primary Dx) Start: 02-23-2024 End: 02-23-2024 Subsequent hospital visit by physician Rajinder Mora APRN-SERVICE OPERATOR Work Phone: [facility] Start: 02-23-2024 [facility] Start: 01-12-2024 End: 01-12-2024 Office outpatient visit 25 minutes New Mcclure MD Work Phone: [facility] Comment on above: Right knee pain, uns pecified chronicity (Primary Dx) Start: 01-12-2024 End: 01-12-2024 Subsequent hospital visit by physician New Mcclure MD Work Phone: [facility] Start: 01-12-2024 ambulatory [facility] Start: 12-22-2023 End: 12-22-2023 Subsequent hospital visit by physician Rajinder Mora APRN-SERVICE OPERATOR Work Phone: [facility] Start: 12-22-2023 [facility] Start: 11-29-2023 End: 12-02-2023 Evaluation and management of inpatient [facility] Start: 11-10-2023 End: 11-10-2023 ambulatory ELIE HARPER Not Available Start: 11-03-2023 End: 11-03-2023 Admission to establishment New Mcclure MD Work Phone: [facility] Comment on above: Preop testing (Prima ry Dx); Abnormal finding of blood chemistry, unspecified; Abnormal coagulation profile Start: 11-03-2023 End: 11-03-2023 Patient encounter status New Mcclure MD Work Phone: [facility] Start: 11-03-2023 ambulatory [facility] Start: 11-03-2023 Encounter for other preprocedural examination [facility] Start: 09-01-2023 End: 09-01-2023 Office outpatient visit 40 minutes New Mcclure MD Work Phone: [facility] Comment on above: Hx of total knee art hroplasty, right (Primary Dx); Hx of total knee arthroplasty, left Start: 09-01-2023 End: 09-01-2023 Subsequent hospital visit by physician New Mcclure MD Work Phone: [facility] Start: 09-01-2023 ambulatory NEW MCCLURE [facility] Start: 05-19-2023 End: 05-19-2023 Postop follow up visit related to original px Rajinder Abby TIMBER HARVESTER OPERATOR-SERVICE OPERATOR Work Phone: [facility] Comment on above: Hx of total knee art hroplasty, right (Primary Dx) Start: 05-19-2023 End: 05-19-2023 Subsequent hospital visit by physician Rajinder Mora TIMBER HARVESTER OPERATOR-SERVICE OPERATOR Work Phone: [facility] Start: 05-19-2023 ambulatory RAJINDER MORA [facility] Start: 03-18-2023 End: 03-18-2023 Subsequent hospital visit by physician New Mcclure MD Work Phone: [facility] Start: 02-08-2023 End: 02-09-[address] YULISA [...] Facility:[facility] Start: 08-31-2021 End: 08-31-2021 ambulatory Stephen Deanne Other [facility] [employer] Other Start: 08-31-2021 Office outpatient ne w 30 minutes Stephen Alicea [facility] Start: 05-07-2021 End: 05-08-2021 ambulatory Mary Mal Facility:[facility] Start: 03-11-2021 End: 03-11-2021 Office outpatient visit 15 minutes New Mcclure MD Work Phone: [facility] Comment on above: Left knee pain, unsp ecified chronicity (Primary Dx); Right knee pain, unspecified chronicity Start: 11-19-2020 End: 11-19-2020 Office outpatient visit 15 minutes New Mcclure Work Phone: [facility] Comment on above: Hx of total knee art hroplasty, left (Primary Dx); Pain in prosthetic joint, initial encounter Start: 11-19-2020 End: 11-19-2020 Subsequent hospital visit by physician [facility]clure [facility] Start: 11-21-2019 End: 11-21-2019 Office outpatient visit 15 minutes New Mcclure Work Phone: [facility] Comment on above: History of total kne e arthroplasty, left (Primary Dx); Arthritis of right knee Start: 11-21-2019 End: 11-21-2019 Subsequent hospital visit by physician New Mcclure [facility] Start: 04-18-2019 End: 04-18-2019 Office outpatient visit 15 minutes New Mcclure Work Phone: [facility] Comment on above: Right hip pain (Prim ric Dx); Left knee pain, unspecified chronicity; Right knee pain, unspecified chronicity Start: 04-18-2019 End: 04-18-2019 Patient encounter procedure New Mcclure Work Phone: [employer] Start: 03-01-2019 End: 03-01-2019 Subsequent hospital visit by physician New Mcclure Work Phone: [facility] Start: 03-01-2019 End: 03-01-2019 Letter encounter Provider Aurelio [facility] Start: 03-01-2019 End: 03-01-2019 Office outpatient visit 15 minutes New Mcclure [employer] Phone: [facility] Comment on above: History of total kne e arthroplasty, left (Primary Dx); Right hip pain Start: 03-01-2019 End: 03-01-2019 Patient encounter procedure New Mcclure Work Phone: [facility] Start: 02-23-2019 End: 02-23-2019 Patient encounter procedure Other Other [facility] Start: 02-09-2019 End: 02-09-2019 Telephone encounter Marcie Lantigua [facility] Comment on above: Leg Swelling Start: 01-05-2019 End: 01-05-2019 Patient encounter procedure Other Other [facility] Start: 01-03-2019 End: 01-03-2019 Office outpatient visit 15 minutes New Mcclure [employer] Phone: [facility] Comment on above: History of total kne e arthroplasty, left (Primary Dx) Start: 12-14-2018 End: 12-14-2018 Patient encounter procedure Rajinder Mora [employer] Phone: [facility] Start: 12-14-2018 End: 12-14-2018 Postop follow up visit related to original px Rajinder Keller Phone: [facility] Comment on above: Hx of total knee art hroplasty, left (Primary Dx) Start: 12-06-2018 End: 12-06-2018 Telephone encounter Marcie Lantigua [facility] Comment on above: Skin Problem Start: 11-30-2018 End: 11-30-2018 Patient encounter procedure Other Other NOTES/RESULTS Start: 11-21-2018 End: 11-24-2018 Evaluation and management of inpatient New Mcclure Work Phone: [facility] Comment on above: Pain in left knee Start: 10-23-2018 End: 10-23-2018 Patient encounter procedure New Mcclure Work Phone: [facility] Comment on above: Pre-op exam (Primary Dx) Start: 09-15-2018 End: 09-15-2018 Patient encounter procedure [facility] Start: 08-18-2017 [facility] Start: 07-24-2017 [facility] Start: 07-18-2017 End: 07-21-2017 Evaluation and management of inpatient [facility] Start: 07-01-2017 Ambulatory [facility] [...] MD Work Phone: Start: 08-31-2022 Mammography Elie Melvin moran MA Start: 03-11-2021 Arthrocentesis aspir &/inj major jt/bursa w/o us New Mcclure MD Work Phone: Start: 11-19-2020 Intra-articular injection New Mcclure Work Phone: Start: 11-21-2019 Intra-articular injection New Mcclure Work Phone: Start: 04-18-2019 Intra-articular injection New Mcclure Work Phone: Start: 11-24-2018 End: 11-24-2018 CBC, EDIF, PLATELET Rajinder Mora Work Phone: Start: 11-23-2018 End: 11-23-2018 Blood count complete auto&auto difrntl wbc Rajinder [employer] Phone: Start: 11-22-2018 End: 11-22-2018 Blood count complete auto&auto difrntl wbc Rajinder [employer] Phone: Start: 11-21-2018 End: 11-21-2018 X-ray of left knee [employer] Phone: Start: 11-21-2018 End: 11-21-2018 Cell count misc body fluids w/differential count [employer] Phone: Start: 11-21-2018 End: 11-21-2018 Cul bact melissa aerobic isol xcpt ur blood/stool [employer] Phone: Start: 11-21-2018 End: 11-21-2018 Culture bacterial any source anaerobic iso&id [employer] Phone: Start: 11-21-2018 End: 11-21-2018 Culture fngi mold/yeast prsmptv oth xcpt blood [employer] Phone: Start: 11-21-2018 End: 11-21-2018 Culture tubercle/oth acid-fast bacilli any isol [employer] Phone: Start: 11-21-2018 End: 11-21-2018 REPEAT ABO/RH (D) TYPING [employer] Phone: Start: 11-21-2018 End: 11-21-2018 Cultyp nuc acid amp prb cult/isolate ea orghari [employer] Phone: Start: 10-23-2018 End: 10-23-2018 Standard ECG [employer] Phone: Plan of Treatment Date Care Activity Detail Author Start: 05-03-2025 End: 05-03-2025 Patient encounter procedure 05/03/2025 10:00 AM EDT Office Visit [facility] [address] [place] [id number] Ramon Barreto, [address] [place] [address] [facility] Start: 12-01-2024 Potassium [Moles/vol ume] in Serum or Plasma [facility] Start: 11-28-2024 End: 11-28-2024 Patient encounter procedure 11/28/2024 11:10 AM EST Office Visit [facility] [address] [place] [address], [place] [address] New Mcclure MD [address] [place] [address] [facility] Start: 11-15-2024 End: 11-15-2024 Patient encounter procedure 11/15/2024 2:40 PM EST Procedure Visit [facility] [address] [facility] [address] [place] [id number] Elie Harper DPM [address] [facility] [address] [place] [address] [facility] Start: 11-03-2024 Potassium [Moles/vol ume] in Serum or Plasma POTASSIUM [facility] Start: 10-25-2024 End: 10-25-2024 Patient encounter procedure 10/25/2024 11:30 AM EST Procedure Visit [facility] [address] [place] [address] Magaile Kaufman, [address] [place], [place] [id number] [facility] Start: 10-23-2024 End: 10-23-2024 Patient encounter procedure 10/23/2024 10:30 AM EST Procedure Visit [facility] [address] [place] [address] Shante Montenegro, [address] [place], [place] [id number] [facility] Start: 10-15-2024 End: 10-15-2025 EMG 1 [facility] Routine Paresthesias Expected: 10/15/2024, Expires: 10/15/2025 [facility] Work Phone: Comment on above: Expected: 10/15/2024 , Expires: 10/15/2025 Start: 10-15-2024 End: 10-15-2024 Patient encounter procedure [facility] Comment on above: Arrived Start: 09-06-2024 End: 09-06-2024 Patient encounter procedure [facility] Comment on above: 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 (Primary Dx); Acquired deformity of left toe Start: 08-16-2024 End: 08-16-2024 Patient encounter procedure 08/16/2024 11:40 AM EDT Office Visit [facility] [address] [facility] [address] [place] [phone] Elie Harper DPM [address] [address] Abscess of toe, right (Primary Dx); Acquired deformity of left toe [facility] Comment on above: Abscess of toe, righ t (Primary Dx); Acquired deformity of left toe Start: 08-02-2024 End: 08-02-2024 Patient encounter procedure 08/02/2024 10:30 AM EDT Office Visit [facility] [address] [facility] [address] [place] [address] Elie Harper DPM [address] [address] [facility] Start: 08-01-2024 End: 08-01-2024 Patient encounter procedure 08/01/2024 2:00 PM EDT Office Visit [facility] [address] [place] [address] Audrey Gunter PA [address] [place] [address] [facility] Start: 07-31-2024 End: 07-31-2024 Patient encounter procedure 07/31/2024 9:45 AM EDT Office Visit [facility] [address] [place] [phone] Ramon Barreto, DO [address] [place] [address] [facility] Start: 07-26-2024 End: 07-26-2024 Patient encounter procedure 07/26/2024 12:30 PM EDT Procedure Visit [facility] [address] [place] [phone] Magalie Kaufman, DO [address] [place] [address] [facility] [address] Start: 07-08-2024 Influenza vaccination INFLUENZA VACC INE (#1) [facility] Start: 05-31-2024 End: 05-31-2024 Patient encounter procedure 05/31/2024 9:30 AM EDT Office Visit [facility] [address] [place] [address] New Mcclure MD [address] [place] [address] [facility] Start: 04-27-2024 Potassium [Moles/vol ume] in Serum or Plasma POTASSIUM [facility] Start: 04-25-2024 End: 04-25-2024 Patient encounter procedure 04/25/2024 11:40 AM EDT Office Visit [facility] [address] [place] [address] Rajinder Mora, NIURKA-SERVICE OPERATOR [address] [place] [address] [facility] Start: 04-19-2024 End: 04-19-2024 Patient encounter procedure 04/19/2024 10:00 AM EDT Office [facility] [address] [place] [address], [place] [address] New Mcclure MD [address] [place] [address] [facility] Start: 03-22-2024 End: 03-22-2024 Patient encounter procedure 03/22/2024 3:30 PM EDT Office Visit [address] [place] [address] New Mcclure MD [address] [place] [address], [place] [address] [facility] Start: 02-23-2024 End: 02-23-2024 Patient encounter procedure 02/23/2024 11:00 AM EDT Office Visit [address] [place] [address] Rajinder Mora APRN-MARTY [address] [place] [address] [facility] Start: 11-29-2023 End: 11-29-2023 Evaluation and management of inpatient [facility] Comment on above: Failed total left kn ee replacement, initial encounter REVISION ARTHROPLAST Y KNEE Start: 11-29-2023 End: 11-29-2023 Revj tot knee arthrp fem&entire tibial compone REVISION ARTHROPLASTY KNEE Failed total left knee replacement, initial encounter 11/29/2023 10:00 AM EST [facility] Start: 11-03-2023 End: 12-05-2023 PREPARE TO TRANSFUSE RED BLOOD CELLS PREPARE TO TRANSFUSE RED BLOOD CELLS Blood Bank Routine Preop testing Expected: 11/03/2023, Expires: 12/05/2023 [facility] Work Phone: Comment on above: Expected: 11/03/2023 , Expires: 12/05/2023 Start: 09-01-2023 End: 09-01-2023 Patient encounter procedure 09/01/2023 1:00 PM EDT Office Visit [address] [place] [address] New Mcclure MD [address] [place] [address] [facility] Start: 08-31-2023 Screening for malign ant neoplasm of breast Mammogram [facility] Start: 07-08-2023 COVID-19 VACCINE ( season) COVID-19 VACCINE ( season) [facility] Start: 07-08-2023 Influenza vaccination INFLUENZA VACC INE (#1) [facility] Start: 04-14-2023 End: 04-14-2023 ambulatory 04/14/2023 Pre-Operative Nurse Assessment Internal Medicine [facility] Pre Admission Start: 12-24-2022 COVID-19 VACCINE (5 - Pfizer series) COVID-19 VACCINE (5 - Pfizer series) [facility] Start: 07-08-2021 Influenza vaccination INFLUENZ A VACCINE (Season Ended) [facility] Start: 11-19-2020 End: 11-19-2020 Office Visit 11/19/2020 Office Visit Orthopaedics New Mcclure MD [address] [place] [address] [phone] [facility] Start: 11-24-2019 Potassium molar conc POTASSIUM [facility] Work Phone: Start: 11-23-2019 Potassium molar conc POTASSIUM [facility] Work Phone: Start: 11-22-2019 End: 11-22-2019 Office Visit 11/22/2019 Office Visit Orthopaedics New Mcclure MD [address] [place] [address] [phone] [facility] Start: 10-23-2019 Potassium molar conc POTASSIUM [facility] Start: 09-11-2019 Pneumococcal vaccination PNEUM OCOCCAL VACCINE SERIES (2 of 2 - PPSV23 or PCV20) [facility] Start: 09-11-2019 Pneumococcal Vaccine : 65+ Years (2 of 2 - PPSV23 or PCV20) Pneumococcal Vaccine: 65+ Years (2 of 2 - PPSV23 or PCV20) [facility] Start: 07-08-2019 Influenza vaccination [address] [facility] [address] Start: 04-18-2019 End: 04-18-2019 Office Visit 04/18/2019 Office Visit Orthopaedics New Mcclure MD [address] [place] [address] [phone] [facility] Start: 03-01-2019 End: 03-01-2019 Office Visit [facility] Comment on above: Arrived History of total kne e arthroplasty, left (Primary Dx) Start: 02-23-2019 End: 03-23-2019 X-ray of left knee XR KNEE LEFT 2 VIEWS Imaging Routine History of total knee arthroplasty, left Expected: 02/23/2019, Expires: 03/23/2019 [facility] Comment on above: Expected: 02/23/2019 , Expires: 03/23/2019 Start: 01-03-2019 End: 01-03-2019 Ambulatory 01/03/2019 Office Visit Orthopaedics New Mcclure MD [address] [place] [address] [phone] [facility] Start: 12-28-2018 End: 01-25-2019 X-ray of left knee XR KNEE LEFT 2 VIEWS Imaging Routine History of total knee arthroplasty, left Expected: 12/28/2018, Expires: 01/25/2019 [facility] Comment on above: Expected: 12/28/2018 , Expires: 01/25/2019 Start: 12-14-2018 End: 12-14-2018 Ambulatory [facility] Start: 11-21-2018 Ambulatory 11/21/2018 Pro cedure Pass [facility] Start: 11-21-2018 Inpatient Encounter [facility] Periop Comment on above: REVISION ARTHROPLAST Y KNEE - extensor mech reconstruction - left Extensor mechanism m alalignment Start: 10-23-2018 End: 10-23-2018 Ambulatory 10/23/2018 Pre-Operative Nurse Assessment Internal Medicine [facility] Pre Admission Start: 07-21-2018 Finding of potassium level (finding) POTASSIUM [facility] Work Phone: Start: 2018 Pneumococcal vaccination [facility] Start: 07-08-2018 Influenza vaccination INFLUENZA VACC INE (#1) [facility] Work Phone: Start: 2003 Colonoscopy [facility] Work Phone: Start: 2003 Protein mass conc COLON CANCER SCREENING DISCUSSION [facility] Work Phone: Start: 2003 Zoster vaccine hzv l damian for subcutaneous use ZOSTER (SHINGLES) VACCINE (1 of 2) [facility] Start: 1998 Screening for malign ant neoplasm of colon COLORECTAL CANCER SCREENING DISCUSSION [facility] Start: 1993 Fasting lipid profile LIPID SCREENIN G [facility] Work Phone: Start: 1993 Lipid panel LIPID SCREENING [facility] Start: 1993 Protein mass conc MAMMOGRAM SC REENING DISCUSSION [facility] Work Phone: Start: 1993 Screening for malign ant neoplasm of breast MAMMOGRAM SCREENING DISCUSSION [facility] Start: 1993 Screening mammography MAMMOGRA M SCREENING DISCUSSION [facility] Work Phone: Start: 1974 Screening for malign ant neoplasm of cervix [facility] Start: 1972 Third diphtheria, tetanus and acellular pertussis (DTaP) vaccination TDAP (ADULT) [facility] Start: 1971 Tetanus vaccination TETANUS [place] [facility] Work Phone: Start: 1969 COVID-19 VACCINE (1) COVID-19 VACCIN E (1) [facility] Start: 1953 Hepatitis C screening HEPATITI S C VIRUS SCREENING [facility] Start: 1953 Screening for malign ant neoplasm of colon [facility] Start: 1953 Tetanus vaccination TETANUS [facility] Start: 1953 End: 1953 Hepatitis C antibody, confirmatory test HEPATITIS C VIRUS SCREENING [facility] Work Phone: Start: 1953 End: 1953 Screening for osteoporosis DEXA SCAN DISCUSSION [facility] ACID FAST CULTURE [facility] Work Phone: Comment on above: ONE TIME for 1 Occur rences starting 11/21/2018 ANAEROBE CULTURE [facility] Work Phone: Comment on above: ONE TIME for 1 Occur rences starting 11/21/2018 BACTERIAL CULTURE AN D DIRECT SMEAR, LESION, TISSUE, DEVICE BACTERIAL CULTURE AND DIRECT SMEAR, LESION, TISSUE, DEVICE Routine Extensor mechanism malalignment ONE TIME for 1 Occurrences starting 11/21/2018 [facility] Work Phone: Comment on above: ONE TIME for 1 Occur rences starting 11/21/2018 Basic metabolic 2000 panel - Serum or Plasma BASIC METABOLIC PANEL Routine Pre-op exam Ordered: 10/23/2018 [facility] Work Phone: Comment on above: Ordered: 10/23/2018 BODY FLUID CULTURE A ND DIRECT SMEAR BODY FLUID CULTURE AND DIRECT SMEAR Routine 11/21/2018 11:00 AM EST [facility] Work Phone: CBC, EDIF, PLATELET CBC, EDIF, P LATELET Routine Pre-op exam Ordered: 10/23/2018 [facility] Work Phone: Comment on above: Ordered: 10/23/2018 FUNGUS CULTURE [facility] Work Phone: Comment on above: ONE TIME for 1 Occur rences starting 11/21/2018 Hemoglobin A1c/Hemoglobin.total mass fraction (Bld) HEMOGLOBIN A1C Routine Pre-op exam Ordered: 10/23/2018 [facility] Work Phone: Comment on above: Ordered: 10/23/2018 LARGE JOINT INJECTIO N: R knee LARGE JOINT INJECTION: R knee Procedures Routine Right knee pain, unspecified chronicity 04/18/2019 4:00 PM EDT [employer] PROTIME-INR PROTIME-INR STAT Pre-op exam Ordered: 10/23/2018 [facility] Work Phone: Comment on above: Ordered: 10/23/2018 Radiography for bone length studies XR BONE LENGTH STUDY Imaging Routine Hx of total knee arthroplasty, right 09/01/2023 12:48 PM EDT [facility] Radiography for bone length studies XR BONE LENGTH STUDY Imaging Routine Hx of total knee arthroplasty, left Ordered: 02/21/2024 [facility] Comment on above: Ordered: 02/21/2024 Radiography of hip XR HIP WITH P NICOLAS RIGHT Imaging Routine Right hip pain 03/01/2019 2:59 PM EDT [employer] SCREEN: MRSA ONLY, N VIVI (ISOLATION SCREEN) SCREEN: MRSA ONLY, NARES (ISOLATION SCREEN) Routine Pre-op exam Ordered: 10/23/2018 [facility] Work Phone: Comment on above: Ordered: 10/23/2018 Standard ECG ECG Routine Pre- op exam 10/23/2018 8:53 AM [facility] Work Phone: TISSUE CULTURE TISSUE CULTURE R outine 11/21/2018 11:00 AM [facility] Work Phone: TYPE AND SCREEN - POSSIBLE TRANSFUSION TYPE AND SCREEN - POSSIBLE TRANSFUSION Routine Pre-op exam Ordered: 10/23/2018 [facility] Work Phone: Comment on above: Ordered: 10/23/2018 TYPE AND SCREEN - POSSIBLE TRANSFUSION TYPE AND SCREEN - POSSIBLE TRANSFUSION Blood Bank Today Preop testing 11/03/2023 9:50 AM [facility] URINALYSIS, MACRO URINALYSIS, MA OCCUPATIONAL HYGIENIST Routine Pre-op exam Ordered: 10/23/2018 [facility] Work Phone: Comment on above: Ordered: 10/23/2018 X-ray of left knee [facility] Work Phone: End: 03-01-2019 X-ray of left knee XR KNEE LEFT 2 VIEWS Imaging Routine History of total knee arthroplasty, left 1 Occurrences starting 03/01/2019 until 03/01/2019 [employer] Comment on above: 1 Occurrences starti ng 03/01/2019 until 03/01/2019 XR Knee - left 2 Views XR KNEE L EFT 2 VIEWS Imaging Routine Left knee pain, unspecified chronicity 03/18/2023 11:12 AM EDT [facility] XR Knee - left 2 Views XR KNEE L EFT 1-2 VIEWS Imaging Routine Hx of total knee arthroplasty, left 12/22/2023 1:17 PM EST [facility] XR Knee - left 2 Views XR KNEE L EFT 1-2 VIEWS Imaging Routine Hx of total knee arthroplasty, left 02/23/2024 11:01 AM [email or web address] XR Knee - left 2 Views XR KNEE L EFT 1-2 VIEWS Imaging Routine Pain in both knees, unspecified chronicity 03/22/2024 3:36 PM [employer] [facility] Work Phone: XR Knee - left 2 Views XR KNEE L EFT 1-2 VIEWS Imaging Routine Pain in both knees, unspecified chronicity 04/19/2024 10:07 AM [employer] XR Knee - left 2 Views XR KNEE L EFT 1-2 VIEWS Imaging Routine Pain in both knees, unspecified chronicity 05/31/2024 9:37 AM EDT [facility] [facility] [employer] XR Knee - left 3 Views XR KNEE L EFT 3 VIEWS Imaging Routine Hx of total knee arthroplasty, left 09/01/2023 12:48 PM [employer] Work Phone: XR Knee - right 2 Views XR KNEE RIGHT 2 VIEWS Imaging Routine Right knee pain, unspecified chronicity 03/18/2023 11:12 AM [employer] End: 01-12-2024 XR Knee - right 2 Views [employer] Work Phone: Comment on above: 1 Occurrences starti ng 01/12/2024 until 01/12/2024 End: 02-23-2024 XR Knee - right 2 Views [employer] Comment on above: 1 Occurrences starti ng 02/23/2024 until 02/23/2024 XR Knee - right 2 Views XR KNEE RIGHT 1-2 VIEWS Imaging Routine Pain in both knees, unspecified chronicity 03/22/2024 3:36 PM EDT [facility] XR Knee - right 2 Views XR KNEE RIGHT 1-2 VIEWS Imaging Routine Pain in both knees, unspecified chronicity 04/19/2024 10:07 AM EDT [facility] Work Phone: XR Knee - right 2 Views XR KNEE RIGHT 1-2 VIEWS Imaging Routine Pain in both knees, unspecified chronicity 05/31/2024 9:37 AM EDT [facility] XR Knee - right 3 Views XR KNEE RIGHT 3 VIEWS Imaging Routine Hx of total knee arthroplasty, right 05/19/2023 2:33 PM EDT [facility] Work Phone: XR Knee - right 3 Views XR KNEE RIGHT 3 VIEWS Imaging Routine Hx of total knee arthroplasty, right 09/01/2023 12:48 PM EDT [facility] XR Knee - right 3 Views XR KNEE RIGHT 3 VIEWS Imaging Routine Right knee pain, unspecified chronicity Ordered: 01/09/2024 [employer] [facility] [employer] Comment on above: Ordered: 01/09/2024 Immunizations Immunization Date Immunization Notes Care Provider [facility] 08-25-2023 influenza virus vaccine, unspecified formulation New Mcclure MD Work Phone: [facility] [facility] 08-23-2022 influenza virus vaccine, unspecified formulation Rajinder Mora APRN-SERVICE OPERATOR Work Phone: [facility] 09-11-2018 pneumococcal conjugate vaccine, 13 valent Elie Estrada [facility] 08-18-2015 influenza virus vaccine, unspecified formulation Richard Macdonald [facility] Work Phone: Payers Date Payer Category Payer Self-pay [id number] 2018 [facility] [id number] 2018 Unknown [id number] 1.13.172.2 .[id number] 2017 Medicare MEDICARE MEDICAR E A AND B xxxxxxxxxxx 2017-Present [place], [place] xxxxxxxxxxx [id number] .[id number] 2017 Medicare MEDICARE MEDICAR E A AND B [id number] 2017-Present [place] [id number] .[id number] 2017 Medicare [id number]. 1.13.172.2 .7.3.647315.315 2017 Unknown ANTHEM ANTHEM TR ADITIONAL xxxxxxxxxxxx 2017-Present xxxxxxxxxxxx [id number] .7.3.974155.315 2017 Unknown ANTHEM ANTHEM TR ADITIONAL [id number] 2017-Present [id number] 1.2.840.118247.1.13.172.2 .7.3.856681.315 2017 Medicare [id number] 2.16.840.1.307809.19 1959 Blue Cross Blue Shield [id number] 2.16.840.1.739736.19 1953 Unknown [id number] 2.16.840.1.912994.3.579.2 .593 1953 Unknown [id number] 2.16.840.1.862978.3.579.2 .593 1953 Unknown [id number] 2.16.840.1.759787.3.579.2 .593 1953 Unknown [id number] 2.16.840.1.864548.3.579.2 .593 1953 Unknown [id number] 2.16.840.1.882113.3.579.2 .593 1953 Unknown [id number] 2.16.840.1.432621.3.579.2 .593 1953 Unknown [id number] 2.16.840.1.378353.3.579.2 .593 1953 Unknown [id number] 2.16.840.1.465160.3.579.2 .59 1953 Unknown [id number] 2.16.840.1.638089.3.579.2 .983 1953 Unknown [id number] 2.16.840.1.326326.3.579.2 .983 1953 Unknown [id number] 2.16.840.1.207344.3.579.2 .983 1953 Unknown [id number] 2.16.840.1.118644.3.579.2 .98 1953 Unknown [id number] 2.16.840.1.598409.3.579.2 .983 1953 Unknown [id number] 2.16.840.1.428859.3.579.2 .983 1953 Unknown [id number] 2.16.840.1.363743.3.579.2 .983 1953 Unknown [id number] 2.16.840.1.598134.3.579.2 .98 1953 Unknown [id number] 2.16.840.1.782701.3.579.2 .983 1953 Unknown [id number] 2.16.840.1.623045.3.579.2 .1953 Unknown [id number] 2.16.840.1.026541.3.579.2 .1953 Unknown [id number] 2.16.840.1.936718.3.579.2 .1953 Unknown [id number] 2.16.840.1.901118.3.579.2 .1953 Unknown [id number] 2.16.840.1.574466.3.579.2 .1953 Unknown [id number] 2.16.840.1.891456.3.579.2 .1953 Unknown [id number] 2.16.840.1.280988.3.579.2 .1953 Unknown [id number] 2.16.840.1.285812.3.579.2 .1258 1953 Unknown [id number] 2.16.840.1.408090.3.579.2 .1258 1953 Unknown [id number] 2.16.840.1.159792.3.579.2 .1258 1953 Unknown [id number] 2.16.840.1.329890.3.579.2 .1258 1953 Unknown [id number] 2.16.840.1.552614.3.579.2 .1258 1953 Unknown [id number] 2.16.840.1.263595.3.579.2 .1258 1953 Unknown [id number] 2.16.840.1.520094.3.579.2 .1258 1953 Unknown [id number] 2.16.840.1.436519.3.579.2 .1259 1953 Unknown [id number] 2.16.840.1.899927.3.579.2 .1259 1953 Unknown [id number] 2.16.840.1.148458.3.579.2 .1259 1953 Unknown [id number] 2.16.840.1.586175.3.579.2 .1259 Private Health Insurance [id number] Unknown [facility] [id number] Unknown [id number] 2.16.840.1.646330.3.579.2 .531 Social History Date Type Detail Facility Start: 10-23-2018 End: 07-13-2023 Tobacco smoking status NHIS Never smoker [facility] Start: 1955 Sex Assigned At Not on file [facility] Work Phone: Start: 11-21-2019 End: 05-31-2024 Alcohol intake Current non-drinker of alcohol (finding) [employer] Start: 11-19-2020 End: 07-13-2023 Tobacco use and exposure Never used [facility] Start: 05-19-2023 End: 09-06-2024 Sex Assigned At [facility] Start: 05-19-2023 End: 09-06-2024 History of Social function [facility] Start: 03-30-2023 Gender identity Identifies as female gender (finding) [facility] Start: 04-16-2023 End: 04-26-2023 Exposure to SARS-CoV-2 (event) Not sure [facility] Start: 1955 Sex Assigned At Female [facility] Has the [employer], or water [employer] threatened to shut off services in your home in past 12Mo No [facility] (I/We) worried christie er (my/our) food would run out before (I/we) got money to buy more. Never true [facility] In the past 12 month s, has lack of transportation kept you from medical appointments or from getting medications? No [employer] [facility] Start: 08-16-2024 End: 09-06-2024 Alcoholic beverage intake Defer [facility] Start: 04-24-2024 Alcohol Comment Caffeine: Current some days [facility] Start: 03-30-2023 Sexual orientation Heterosexual (finding) [facility] Medical Equipment Procedure Code Equipment Code Equipment Origin al Text Equipment Identifier Dates Prolite Mesh 25. 4 Cm X 35.5cm Start: 11-21-2018 [facility] R 1x40 S nacho - [id number] Start: 11-21-2018 Prolite Mesh 25. 4 Cm X 35.5cm Start: 11-21-2018 [facility] R 1x40 S nacho - [id number] Start: 11-21-2018 Prolite Mesh 25. 4 Cm X 35.5cm Start: 11-21-2018 [facility] R 1x40 S nacho - [id number] Start: 11-21-2018 Prolite Mesh 25. 4 Cm X 35.5cm Start: 11-21-2018 [facility] R 1x40 S nacho - [id number] Start: 11-21-2018 Prolite Mesh 25. 4 Cm X 35.5cm Start: 11-21-2018 Prolite Mesh 25. 4 Cm X 35.5cm Start: 11-21-2018 [facility] R 1x40 S nacho - [id number] Start: 11-21-2018 [facility] R 1x40 S nacho - [id number] Start: 11-21-2018 Prolite Mesh 25. 4 Cm X 35.5cm Start: 11-21-2018 Prolite Mesh 25. 4 Cm X 35.5cm Start: 11-21-2018 [facility] R 1x40 S nacho - [id number] Start: 11-21-2018 [facility] R 1x40 S nacho - [id number] Start: 11-21-2018 Prolite Mesh 25. 4 Cm X 35.5cm Start: 11-21-2018 Prolite Mesh 25. 4 Cm X 35.5cm Start: 11-21-2018 [facility] R 1x40 S nacho - [id number] Start: 11-21-2018 [facility] R 1x40 S nacho - [id number] Start: 11-21-2018 Prolite Mesh 25. 4 Cm X 35.5cm Start: 11-21-2018 Prolite Mesh 25. 4 Cm X 35.5cm Start: 11-21-2018 [place] R 1x40 S nacho - [id number] Start: 11-21-2018 [facility] R 1x40 S nacho - [id number] Start: 11-21-2018 Prolite Mesh 25. 4 Cm X 35.5cm Start: 11-21-2018 Prolite Mesh 25. 4 Cm X 35.5cm Start: 11-21-2018 [facility] R 1x40 S nacho - [id number] Start: 11-21-2018 [facility] R 1x40 S nacho - [id number] Start: 11-21-2018 Prolite Mesh 25. 4 Cm X 35.5cm Start: 11-21-2018 Prolite Mesh 25. 4 Cm X 35.5cm Start: 11-21-2018 [place]os R 1x40 S nacho - [id number] Start: 11-21-2018 [facility] R 1x40 S nacho - [id number] Start: 11-21-2018 Prolite Mesh 25. 4 Cm X 35.5cm Start: 11-21-2018 Prolite Mesh 25. 4 Cm X 35.5cm Start: 11-21-2018 [facility] R 1x40 S nacho - [id number] Start: 11-21-2018 [facility] R 1x40 S nacho - [id number] Start: 11-21-2018 Prolite Mesh 25. 4 Cm X 35.5cm [id number] Start: 11-21-2018 [facility]acos R 1x40 S nacho - [id number] Start: 11-21-2018 Prolite Mesh 25. 4 Cm X 35.5cm Start: 11-21-2018 Prolite Mesh 25. 4 Cm X 35.5cm Start: 11-21-2018 [facility] R 1x40 S nacho - [id number] Start: 11-21-2018 [facility]os R 1x40 S nacho - [id number] Start: 11-21-2018 Prolite Mesh 25. 4 Cm X 35.5cm Start: 11-21-2018 [facility]os R 1x40 S nacho - [id number] Start: 11-21-2018 Prolite Mesh 25. 4 Cm X 35.5cm Start: 11-21-2018 Prolite Mesh 25. 4 Cm X 35.5cm Start: 11-21-2018 [facility] R 1x40 S nacho - [id number] Start: 11-21-2018 [facility] R 1x40 S nacho - [id number] Start: 11-21-2018 Attune Tibial In sert Fixed [...] Palacos R+G 1x40 Single With Gentamicin - [id number] Start: 11-29-2023 Palacos R 1 X 40 Us - [id number] Start: 04-26-2023 Attune Knee Syst em Revision Tibial Base Fixed Bearing [id number] Start: 04-26-2023 Attune Femoral Posterior Stabilized [id number] Start: 04-26-2023 Attune Patella Medialized Dome [id number] Start: 04-26-2023 [place] Cancell ous Bone Screw [id number] Start: 04-26-2023 Attune Knee Syst em Revision Pressfit Stem [id number] Start: 11-29-2023 [facility] R & G Scott ne Cement High-Viscosity With Gentamicin - [id number] Start: 11-29-2023 Attune Knee Syst em Revision Crs Rotating Platform Insert [id number] Start: 11-29-2023 Clinical Notes 03-11-2021 to 10-15-2024 Shante Montenegro, - 10/15/2024 2:00 PM Samanthajarret Harper, DPM - 09/06/2024 2:40 PM EDTLizjarret Caraballo Omer, DPM - 08/16/2024 11:40 AM Lima Christianson NP - 07/16/2024 1:00 PM EDT Note Date & Type Note Facility 10-15-2024 History of Presen t illness Narrative Images from the original note were not included. Chief complaint: Spinal stenosis and neuropathy Subjective Danyelle Haskins is a 69 y.o. female. HPI The patient presents today for follow up for spinal stenosis and neuropathy. Patient states things haven't been going very well. She states she has been in pain throughout her whole body. She believes this could be related to the weather. She reports pain in the right thigh that is new. She states this is worse at night. She has to lay on her left side so her leg is not touching anything. She reports the numbness and tingling in her right hand has gotten a bit better since wearing the brace at night. Review of Systems Constitutional: Negative for appetite change, chills, fatigue, fever and unexpected weight change. HENT: Negative for trouble swallowing and voice change. Eyes: Negative for visual change, double vision, or loss of vision Respiratory: Negative for cough, shortness of breath and wheezing. Cardiovascular: Negative for chest pain and palpitations. Gastrointestinal: Negative for abdominal pain, blood in stool, nausea and vomiting. Musculoskeletal: Positive for arthralgias and back pain (low back). Negative for gait problem and myalgias. Neurological: Positive for weakness (bilateral lower extremity) and numbness (and paresthesias - lower extremities and left hand only). Negative for dizziness, tremors, seizures, syncope, facial asymmetry, speech difficulty, light-headedness and headaches. Psychiatric/Behavioral: Negative for confusion, hallucinations and suicidal ideas. The patient is not nervous/anxious. Medication List acetaminophen 650 MG ER tablet; Commonly known as: Tylenol 8 Hour ascorbic acid 500 MG tablet; Commonly known as: Vitamin C Calcium + D 500-1000-40 MG-UNT-MCG chewable tablet; Generic drug: Calcium-Vitamin D-Vitamin K diclofenac sodium 1 % gel doxazosin 4 MG tablet; Commonly known as: Cardura folic acid 1 MG tablet; Commonly known as: Folvite Glucosamine 1500 Complex capsule hydroxychloroquine 200 MG tablet; Commonly known as: Plaquenil ibandronate 150 MG tablet; Commonly known as: Boniva leflunomide 20 MG tablet; Commonly known as: Arava lisinopril 40 MG tablet methotrexate 2.5 MG tablet Oyster Shell Calcium w/D 500-5 MG-MCG tablet pantoprazole 40 MG EC tablet; Commonly known as: ProtoNix predniSONE 5 MG tablet; Commonly known as: Deltasone pregabalin 25 MG capsule; Commonly known as: Lyrica traMADol 50 MG tablet; Commonly known as: Ultram triamterene-hydrochlorothiazide 37.5-25 MG tablet; Commonly known as: Maxzide-25 Turmeric 500 MG capsule Past Medical History: Diagnosis Date Arthritis Backache Blepharospasm Cataract Closed fracture of patella Degenerative disc disease, lumbar Disturbance of skin sensation Dizziness Dry eyes Facet arthritis of lumbar region Facial weakness Fibromyalgia Hemifacial spasm History of transfusion Hypertension (CMS/HCC) Muscle spasm Osteopenia Peripheral neuropathy Polyneuropathy PVD (peripheral vascular disease) (CMS/HCC) Radiculopathy, lumbosacral region Small fiber neuropathy Spinal stenosis excluding cervical region lumbar region, without neurogenic claudication Spondylolisthesis Trigeminal neuralgia (CMS/HCC) Past Surgical History: Procedure Laterality Date CATARACT EXTRACTION FL GUIDED ASPIRATION OR INJECTION LARGE JOINT BILATERAL Bilateral 04/18/2019 FL GUIDED ASPIRATION OR INJECTION LARGE JOINT BILATERAL FL GUIDED ASPIRATION OR INJECTION LARGE JOINT BILATERAL Bilateral 11/21/2019 FL GUIDED ASPIRATION OR INJECTION LARGE JOINT BILATERAL FL GUIDED ASPIRATION OR INJECTION LARGE JOINT BILATERAL Bilateral 11/19/2020 FL GUIDED ASPIRATION OR INJECTION LARGE JOINT BILATERAL FL GUIDED ASPIRATION OR INJECTION LARGE JOINT BILATERAL Bilateral 03/11/2021 FL GUIDED ASPIRATION OR INJECTION LARGE JOINT BILATERAL HIP SURGERY HIP SURGERY Right HYSTERECTOMY KNEE ARTHROPLASTY KNEE SURGERY Bilateral SPINE SURGERY fusion L2-3-4-5 TONSILLECTOMY WRIST SURGERY Family History Problem Relation Name Age of Onset Cancer Mother Mary Haskins Macular degeneration Mother Mary Haskins Cancer Father Carmelo Haskins Cancer Sister Loretta Barrera Cataracts Sister Loretta Barrera Diabetes Sister Loretta Barrera Cataracts Sister Anh May Cancer Mother's Sister Kelsie Walker Cataracts Mother's Sister Bertha Walker Stroke Mother's Sister Bertha Walker Cancer Maternal Grandfather Josiah Walker Heart disease Other Social History Tobacco Use Smoking status: Never Smokeless tobacco: Never Substance Use Topics Alcohol use: Defer Comment: Caffeine: Current some days Allergies: Gabapentin (once-daily), Alendronate, Gabapentin, Oxcarbazepine, Levofloxacin, and Sulfamethoxazole-trimethoprim Vitals: 10/15/24 1408 BP: 148/82 Pulse: 76 SpO2: 93% Body mass index is 34.67 kg/m . weight: 228 lb Neurologic exam: Mental status: Awake and alert with unlabored respirations. Oriented to person, place and time. Recent and remote memory are intact. Speech is clear and fluent without aphasia. Attention and concentration are normal. Fund of knowledge is appropriate for level of education. Cranial nerves: CN II: Visual acuity is normal. Visual echevarria full to confrontation. CN III, IV, : Pupils are equal, round, and reactive to light. Extraocular movements intact. No ptosis present. CN V: Facial sensation is normal. CN VII: Some facial weakness on the right (chronic; likely Botox induced). The patient states this developed after she started receiving Botox injections and denies altered sensation. CN VIII: Hearing is normal to finger rub bilaterally. CN IX and X: Palate elevates symmetrically. CN XI: Shoulder shrug is normal bilaterally. CN XII: Tongue is midline without atrophy or fasciculation. Motor: RUE strength deltoid , biceps , triceps , wrist extensors , wrist flexor , and sports medicine coordinator strength 5/5. LUE strength deltoid , biceps , triceps , wrist extensors , wrist flexor , and sports medicine coordinator strength 5/5. RLE strength iliopsoas, quadriceps, tibialis anterior, plantar flexion, and dorsiflexion strength 5/5. LLE strength iliopsoas, quadriceps, tibialis anterior, plantar flexion, and dorsiflexion strength 5/5. Tone and bulk are normal. Sensory: Sensation is intact to light touch throughout all four extremities. Sensation is intact to temperature in all extremities. Vibratory sensation absent at the left great toe and diminished at the right great toe. Reflexes: RUE biceps reflex 2+ , brachioradialis reflex 2+. LUE biceps reflex 2+ , brachioradialis reflex 2+. RLE Knee reflex 0. LLE Knee reflex 0. Coordination: Zjfrlb-ux-syku testing normal. Rapid alternating movements are normal. Gait: Steady. Utilizing walker. Review and summary of old records: MRI of the lumbar spine at the [facility] on 04/01/21: Posterior decompression and transpedicular fusion L2-S1. Diffuse degenerative changes. L1-L2 severe central canal stenosis of 4.7 mm and moderate right foraminal stenosis. Labs on 02/09/18: CHAR direct negative. Protein electrophoresis generally unremarkable; no M-spike observed. Labs on 06/08/16: CMP unremarkable. B12 level > 1,000. MMA 138. Folate > 20. TSH 0.171 (low). T4 and T3U within normal limits. Homocysteine serum 9.1 (WNL). Serum and urine protein electrophoresis without M protein. Labs on 07/10/10: Vitamin D 25-OH 44.7 (WNL). Labs on 08/28/08: Sed rate 14 (WNL). TSH 2.05. Hgb A1C 5.1%. Assessment/Plan Diagnoses and all orders for this visit: Spinal stenosis of lumbar region, unspecified whether neurogenic claudication present Degenerative disc disease, lumbar Facet arthritis of lumbar region The patient has a history of lumbar fusion from L2-S1, and MRI of the lumbar spine in 03/2021 revealed severe spinal canal stenosis at L1. I reviewed Dr. Wyman neurosurgery consultation note from 08/2021. Dr. Wyman opted out of surgery and felt pain management was appropriate, as the patient had no symptoms of neurogenic claudication at the time. The patient reports right-sided low back pain. She also reports mild lower extremity weakness, but no focal weakness is appreciated on clinical exam. She has paresthesias in the distal bilateral lower extremities, however, these may be secondary to peripheral neuropathy. No other apparent radicular symptoms. Right L4/L5/S1 facet injections on 03/08/23 were highly beneficial (initially with 100% pain reduction and effects lasting > 3 months). The patient remains physically active at home, and symptoms remain tolerable recently. PLAN: - Hold off on further facet injections at this time per patient request due to symptom stability - increase Lyrica to 50 mg p.o. b.I.d. - Of note, she also follows with rheumatology and is prescribed Tramadol, prednisone, and hydroxychloroquine Blepharospasm The patient receives Botox injections via Dr. Kaufman which provide significant benefit. Seemingly well controlled today with most recent injection on 04/26/24. PLAN: - Follow up with Dr. Kaufman for evaluation and consideration of further Botox injections Polyneuropathy The patient reports asymmetric paresthesias in the distal bilateral lower extremities (left more significant than right) which have not progressed since the prior neurology appointment. She has historically been diagnosed with polyneuropathy, and lab work in the past was unremarkable for cause. This may be idiopathic. No reported history of diabetes or alcohol abuse. Symptoms are tolerable on the current dose of Lyrica. Zonisamide was previously ineffective. PLAN: - We again discussed EMG of the bilateral lower extremities and further work up to assess for potential causes of polyneuropathy. This was declined by the patient - increase Lyrica to 50 mg p.o. b.I.d. OARRS reviewed - Fall prevention measures were discussed Paresthesias The patient reports constant numbness/paresthesias in the 1st digit and intermittent paresthesias in the 2nd through 4th digits of the left hand. She denies neck pain, arm pain/paresthesias, or left upper extremity weakness. Given the clinical description, I am most suspicious for a left median neuropathy or possibly a C6/C7 radiculopathy. PLAN: - EMG of the left upper extremity to assess for pathology as above in determine type and severity - May utilize left cock-up wrist splint at bedtime to monitor symptom response Diagnosis and treatment options discussed in detail. All questions answered. The patient verbalizes understanding and is agreeable to the plan. Discussion in layman's terms. Follow up in the office within 1 months; sooner if needed for new or worsening symptoms. documented in this encounter [facility] 09-06-2024 History of Presen t illness Narrative Patient: Danyelle Haskins : 1955 PCP: Yulisa Batres MD SUBJECTIVE Patient presents today with a CC of elongated, thick nails. Pt states nails have been elongated and thick for many years and cause pain with ambulation in shoegear. Pt has tried previous treatment with minimal relief. Pt presents today for nail care and treatment. Patient has had revisional knee sx in [...] Fibromyalgia Hemifacial spasm History of transfusion Hypertension (CMS/[facility]) Muscle spasm Osteopenia Peripheral neuropathy Polyneuropathy PVD (peripheral vascular disease) (CMS/[facility]) Radiculopathy, lumbosacral region Small fiber neuropathy Spinal stenosis excluding cervical region lumbar region, without neurogenic claudication Spondylolisthesis Trigeminal neuralgia (CMS/HCC) Medications: Current Outpatient Medications: acetaminophen (Tylenol 8 [...] evening. Take with meals., Disp: , Rfl: diclofenac sodium 1 % gel, External for 19 Days, Disp: , Rfl: doxazosin (Cardura) 4 MG tablet, Take 4 mg by mouth 1 (one) time each day at the same time, Disp: , Rfl: folic acid (Folvite) 1 MG tablet, Take 1,000 mcg by mouth in the morning., Disp: , Rfl: Sgekogwtbnl-Koqowwuvc-Nhx C-Mn (Glucosamine 1500 Complex) capsule, as directed [...] Social History Narrative Not on file Social Drivers of Health Financial Resource Strain: Not on file Food Insecurity: No Food Insecurity (11/29/2023) Received from [facility], [facility] Hunger Vital Sign Worried About Running Out of Food in the Last Year: Never true Ran Out of Food in the Last Year: Never true Transportation Needs: No Transportation Needs (11/29/2023) Received from [facility], [facility] PRAPARE - Transportation Lack of Transportation (Medical): No Lack of Transportation (Non-Medical): No Physical Activity: Not on file Stress: Not on file Social Connections: Not on file Intimate Partner Violence: Not on file Housing Stability: Low Risk (11/29/2023) Received from [facility], [facility] Housing Stability Vital Sign Unable to [...] palpation to the right hallux ASSESSMENT 1. Pain due to onychomycosis of toenails of both feet 2. 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 She states diminished [...] Fibromyalgia Hemifacial spasm History of transfusion Hypertension ([facility]) Muscle spasm Osteopenia Peripheral neuropathy Polyneuropathy PVD (peripheral vascular disease) ([facility]) Radiculopathy, lumbosacral region Small fiber neuropathy Spinal stenosis excluding cervical region lumbar region, without neurogenic claudication Spondylolisthesis Trigeminal neuralgia ([facility]) Medications: Current Outpatient Medications: acetaminophen (Tylenol 8 [...] mouth in the morning., Disp: , Rfl: Ygcxqgouczz-Ekrqrmupm-Gqi C-Mn (Glucosamine 1500 Complex) capsule, as directed [...] Insecurity: No Food Insecurity (11/29/2023) Received from [facility], [facility] Hunger Vital Sign Worried About Running Out of Food in the Last Year: Never true Ran Out of Food in the Last Year: Never true Transportation Needs: No Transportation Needs (11/29/2023) Received from [facility], [facility] PRAPARE - Transportation Lack of Transportation (Medical): No Lack of Transportation (Non-Medical): No Physical Activity: Not on file Stress: Not on file Social Connections: Not on file Intimate Partner Violence: Not on file Housing Stability: Low Risk (11/29/2023) Received from [facility], [facility] Housing Stability Vital Sign Unable to [...] Elie Harper DPM documented in this encounter [facility] 07-16-2024 History of Presen t illness Narrative Images from the original note were not included. Gaby Christianson NP Chief Complaint Patient presents with Back Pain Numbness Subjective Danyelle Haskins is a 69 y.o. female. HPI The patient presents today for follow up. She received Botox injections via Dr. Kaufman on 04/26/2024. Botox continues to alleviate her facial spasms. She underwent left knee surgery via Dr. Mcclure on 11/29/2023. She then developed a right knee fracture in December 2023. This was treated non-surgically with rest and non weightbearing. She resided at [facility] from 12/02/2023 to 06/06/2024 for postoperative care and physical therapy. She is now in outpatient physical therapy. She reports being less active since the knee surgery and reports mild lower extremity weakness. The patient has right-sided low back pain. This is intermittent. It does not radiate. It is aggravated by activity and relieved by rest. She has constant numbness and tingling in the bilateral feet and left lower extremity (distal to the knee) which are generally unchanged since the appointment on 10/11/2023. She can experience sharp and shooting pains in the bilateral feet intermittently. These are brief. She denies saddle anesthesia, bowel dysfunction, buckling of the knees, or falls. She reports chronic urinary incontinence with coughing or sneezing. The patient continues to have paresthesias in her left thumb. She states it feels like her left thumb is asleep. She also has intermittent tingling in the 2nd through 4th digits on the left hand, but these have significantly improved. She denies neck pain or arm pain/paresthesias. She denies left upper extremity weakness. No further concerns reported. Review of Systems Constitutional: Negative for appetite change, chills, fatigue, fever and unexpected weight change. HENT: Negative for trouble swallowing and voice change. Eyes: Negative for visual change, double vision, or loss of vision Respiratory: Negative for cough, shortness of breath and wheezing. Cardiovascular: Negative for chest pain and palpitations. Gastrointestinal: Negative for abdominal pain, blood in stool, nausea and vomiting. Musculoskeletal: Positive for arthralgias and back pain (low back). Negative for gait problem and myalgias. Neurological: Positive for weakness (bilateral lower extremity) and numbness (and paresthesias - lower extremities and left hand only). Negative for dizziness, tremors, seizures, syncope, facial asymmetry, speech difficulty, light-headedness and headaches. Psychiatric/Behavioral: Negative for confusion, hallucinations and suicidal ideas. The patient is not nervous/anxious. Medication List acetaminophen 650 MG ER tablet; Commonly known as: Tylenol 8 Hour ascorbic acid 500 MG tablet; Commonly known as: Vitamin C Calcium + D 500-1000-40 MG-UNT-MCG chewable tablet; Generic drug: Calcium-Vitamin D-Vitamin K diclofenac sodium 1 % gel doxazosin 4 MG tablet; Commonly known as: Cardura folic acid 1 MG tablet; Commonly known as: Folvite Glucosamine 1500 Complex capsule hydroxychloroquine 200 MG tablet; Commonly known as: Plaquenil ibandronate 150 MG tablet; Commonly known as: Boniva leflunomide 20 MG tablet; Commonly known as: Arava lisinopril 40 MG tablet methotrexate 2.5 MG tablet Oyster Shell Calcium w/D 500-5 MG-MCG tablet pantoprazole 40 MG EC tablet; Commonly known as: ProtoNix predniSONE 5 MG tablet; Commonly known as: Deltasone pregabalin 25 MG capsule; Commonly known as: Lyrica traMADol 50 MG tablet; Commonly known as: Ultram triamterene-hydrochlorothiazide 37.5-25 MG tablet; Commonly known as: Maxzide-25 Turmeric 500 MG capsule Past Medical History: Diagnosis Date Arthritis Backache Blepharospasm Cataract Closed fracture of patella Degenerative disc disease, lumbar Disturbance of skin sensation Dizziness Dry eyes Facet arthritis of lumbar region Facial weakness Fibromyalgia Hemifacial spasm History of transfusion Hypertension (CMS/HCC) Muscle spasm Osteopenia Peripheral neuropathy Polyneuropathy PVD (peripheral vascular disease) (CMS/HCC) Radiculopathy, lumbosacral region Small fiber neuropathy Spinal stenosis excluding cervical region lumbar region, without neurogenic claudication Spondylolisthesis Trigeminal neuralgia (CMS/HCC) Past Surgical History: Procedure Laterality Date CATARACT EXTRACTION FL GUIDED ASPIRATION OR INJECTION LARGE JOINT BILATERAL Bilateral 04/18/2019 FL GUIDED ASPIRATION OR INJECTION LARGE JOINT BILATERAL FL GUIDED ASPIRATION OR INJECTION LARGE JOINT BILATERAL Bilateral 11/21/2019 FL GUIDED ASPIRATION OR INJECTION LARGE JOINT BILATERAL FL GUIDED ASPIRATION OR INJECTION LARGE JOINT BILATERAL Bilateral 11/19/2020 FL GUIDED ASPIRATION OR INJECTION LARGE JOINT BILATERAL FL GUIDED ASPIRATION OR INJECTION LARGE JOINT BILATERAL Bilateral 03/11/2021 FL GUIDED ASPIRATION OR INJECTION LARGE JOINT BILATERAL HIP SURGERY HIP SURGERY Right HYSTERECTOMY KNEE ARTHROPLASTY KNEE SURGERY Bilateral SPINE SURGERY fusion L2-3-4-5 TONSILLECTOMY WRIST SURGERY Family History Problem Relation Name Age of Onset Cancer Mother Mary Haskins Macular degeneration Mother Mary Haskins Cancer Father Carmeol Haskins Cancer Sister Loretta Barrera Cataracts Sister Loretta Bruce Diabetes Sister Loretta Bruce Cataracts Sister Anh May Cancer Mother's Sister Kelsie Walker Cataracts Mother's Sister Berthanubia Walker Stroke Mother's Sister Bertha Denise Cancer Maternal Grandfather Josiah Denise Heart disease Other Social History Tobacco Use Smoking status: Never Smokeless tobacco: Never Substance Use Topics Alcohol use: Defer Comment: Caffeine: Current some days Allergies: Gabapentin (once-daily), Alendronate, Gabapentin, Oxcarbazepine, Levofloxacin, and Sulfamethoxazole-trimethoprim Vitals: 07/16/24 1300 BP: (!) 142/92 Body mass index is 34.21 kg/m . weight: 225 lb Neurologic exam: Mental status: Awake and alert with unlabored respirations. Oriented to person, place and time. Recent and remote memory are intact. Speech is clear and fluent without aphasia. Attention and concentration are normal. Fund of knowledge is appropriate for level of education. Cranial nerves: CN II: Visual acuity is normal. Visual echevarria full to confrontation. CN III, IV, : Pupils are equal, round, and reactive to light. Extraocular movements intact. No ptosis present. CN V: Facial sensation is normal. CN VII: Some facial weakness on the right (chronic; likely Botox induced). The patient states this developed after she started receiving Botox injections and denies altered sensation. CN VIII: Hearing is normal to finger rub bilaterally. CN IX and X: Palate elevates symmetrically. CN XI: Shoulder shrug is normal bilaterally. CN XII: Tongue is midline without atrophy or fasciculation. Motor: RUE strength deltoid , biceps , triceps , wrist extensors , wrist flexor , and sports medicine coordinator strength 5/5. LUE strength deltoid , biceps , triceps , wrist extensors , wrist flexor , and sports medicine coordinator strength 5/5. RLE strength iliopsoas, quadriceps, tibialis anterior, plantar flexion, and dorsiflexion strength 5/5. LLE strength iliopsoas, quadriceps, tibialis anterior, plantar flexion, and dorsiflexion strength 5/5. Tone and bulk are normal. Sensory: Sensation is intact to light touch throughout all four extremities. Sensation is intact to temperature in all extremities. Vibratory sensation absent at the left great toe and diminished at the right great toe. Reflexes: RUE biceps reflex 2+ , brachioradialis reflex 2+. LUE biceps reflex 2+ , brachioradialis reflex 2+. RLE Knee reflex 0. LLE Knee reflex 0. Coordination: Kopeiy-hd-gwvw testing normal. Rapid alternating movements are normal. Gait: Steady. Utilizing walker. Review and summary of old records: MRI of the lumbar spine at the [facility] on 04/01/21: Posterior decompression and transpedicular fusion L2-S1. Diffuse degenerative changes. L1-L2 severe central canal stenosis of 4.7 mm and moderate right foraminal stenosis. Labs on 02/09/18: CHAR direct negative. Protein electrophoresis generally unremarkable; no M-spike observed. Labs on 06/08/16: CMP unremarkable. B12 level > 1,000. MMA 138. Folate > 20. TSH 0.171 (low). T4 and T3U within normal limits. Homocysteine serum 9.1 (WNL). Serum and urine protein electrophoresis without M protein. Labs on 07/10/10: Vitamin D 25-OH 44.7 (WNL). Labs on 08/28/08: Sed rate 14 (WNL). TSH 2.05. Hgb A1C 5.1%. Assessment/Plan Diagnoses and all orders for this visit: Spinal stenosis of lumbar region, unspecified whether neurogenic claudication present Degenerative disc disease, lumbar Facet arthritis of lumbar region The patient has a history of lumbar fusion from L2-S1, and MRI of the lumbar spine in 03/2021 revealed severe spinal canal stenosis at L1. I reviewed Dr. Wyman neurosurgery consultation note from 08/2021. Dr. Wyman opted out of surgery and felt pain management was appropriate, as the patient had no symptoms of neurogenic claudication at the time. The patient reports right-sided low back pain. She also reports mild lower extremity weakness, but no focal weakness is appreciated on clinical exam. She has paresthesias in the distal bilateral lower extremities, however, these may be secondary to peripheral neuropathy. No other apparent radicular symptoms. Right L4/L5/S1 facet injections on 03/08/23 were highly beneficial (initially with 100% pain reduction and effects lasting > 3 months). The patient remains physically active at home, and symptoms remain tolerable recently. PLAN: - Hold off on further facet injections at this time per patient request due to symptom stability - Continue Lyrica 25 mg by mouth twice a day - Of note, she also follows with rheumatology and is prescribed Tramadol, prednisone, and hydroxychloroquine Blepharospasm The patient receives Botox injections via Dr. Kaufman which provide significant benefit. Seemingly well controlled today with most recent injection on 04/26/24. PLAN: - Follow up with Dr. Kaufman for evaluation and consideration of further Botox injections Polyneuropathy The patient reports asymmetric paresthesias in the distal bilateral lower extremities (left more significant than right) which have not progressed since the prior neurology appointment. She has historically been diagnosed with polyneuropathy, and lab work in the past was unremarkable for cause. This may be idiopathic. No reported history of diabetes or alcohol abuse. Symptoms are tolerable on the current dose of Lyrica. Zonisamide was previously ineffective. PLAN: - We again discussed EMG of the bilateral lower extremities and further work up to assess for potential causes of polyneuropathy. This was declined by the patient - Continue Lyrica 25 mg by mouth twice a day. OARRS reviewed - Fall prevention measures were discussed Paresthesias The patient reports constant numbness/paresthesias in the 1st digit and intermittent paresthesias in the 2nd through 4th digits of the left hand. She denies neck pain, arm pain/paresthesias, or left upper extremity weakness. Given the clinical description, I am most suspicious for a left median neuropathy or possibly a C6/C7 radiculopathy. PLAN: - I strongly recommended EMG of the left upper extremity to help delineate the cause of the patient's sensory symptoms and guide treatment. The patient declined EMG. She understands underlying pathology may be missed without this - May utilize left cock-up wrist splint at bedtime to monitor symptom response Diagnosis and treatment options discussed in detail. All questions answered. The patient verbalizes understanding and is agreeable to the plan. Discussion in layman's terms. Follow up in the office within 3 months; sooner if needed for new or worsening symptoms. Gaby Christianson NP [facility] Advanced Neurology documented in this encounter [facility] 05-31-2024 History of Presen t illness Narrative [...] 05/31/2024 9:39 AM Patient: Danyelle Haskins MR#: [id number] : 1955 Age: 68 y.o. Referring Physician: [...] CATARACT W/ IMPLANT (ECCE IOL) Bilateral 2018 [facility] TREATMENT OPEN PATELLAR FX W/ INTERNAL [...] times daily October 01, 2020 10:38am 10-01-2020 [facility] ([id number]) Docusate 100 MG capsule Take 1 capsule by mouth 2 times daily. 60 capsule 0 Doxazosin 4 MG tablet Take 1 tablet by mouth daily. Folic acid 1 MG tablet Take 1 tablet by mouth daily. Tqaxmypaapa-Dkcdzxjmj-Utd C-Mn (Glucosamine 1500 Complex) capsule Take by [...] October 01, 2020 10:38am 10-01-2020 [facility] ([id number]), Disp: , Rfl: Docusate 100 MG capsule, Take 1 capsule by mouth 2 times daily., Disp: 60 capsule, Rfl: 0 Doxazosin 4 MG tablet, Take 1 tablet by mouth daily., Disp: , Rfl: Folic acid 1 MG tablet, Take 1 tablet by mouth daily., Disp: , Rfl: Xysihogcxaz-Mrfoyyakv-Vyw C-Mn (Glucosamine 1500 Complex) capsule, Take by [...] HPI: Danyelle is an established patient of [facility]. She is here today for a 6 [...] CATARACT W/ IMPLANT (ECCE IOL) Bilateral 2017 [facility] TREATMENT OPEN PATELLAR FX W/ INTERNAL [...] times daily October 01, 2020 10:38am 10-01-2020 [facility] ([id number]), Disp: , Rfl: Docusate 100 MG capsule, Take 1 capsule by mouth 2 times daily., Disp: 60 capsule, Rfl: 0 Doxazosin 4 MG tablet, Take 1 tablet by mouth daily., Disp: , Rfl: Folic acid 1 MG tablet, Take 1 tablet by mouth daily., Disp: , Rfl: Vksgewoqvxk-Kdxsshtjb-Ise C-Mn (Glucosamine 1500 Complex) capsule, Take by [...] Weakness Trimethoprim Weakness documented in this encounter [facility] 04-19-2024 History of Presen t illness Narrative Ortho Nurse - Established Patient Intake Room#: 2 Pt is here for B/L knee. Pt is not in any pain. No falls, or injury's. Date: 04/19/2024 10:14 AM Patient: Danyelle Haskins MR#: [id number] : 1955 Age: 68 y.o. Referring Physician: [...] CATARACT W/ IMPLANT (ECCE IOL) Bilateral 2018 [facility] TREATMENT OPEN PATELLAR FX W/ INTERNAL [...] October 01, 2020 10:38am 10-01-2020 [facility] ([id number]) Docusate 100 MG capsule Take 1 capsule by mouth 2 times daily. 60 capsule 0 Doxazosin 4 MG tablet Take 1 tablet by mouth daily. Folic acid 1 MG tablet Take 1 tablet by mouth daily. Tlnwgpscfue-Zhpwscmat-Rmr C-Mn (Glucosamine 1500 Complex) capsule Take by [...] times daily October 01, 2020 10:38am 10-01-2020 [facility] ([id number]), Disp: , Rfl: Docusate 100 MG capsule, Take 1 capsule by mouth 2 times daily., Disp: 60 capsule, Rfl: 0 Doxazosin 4 MG tablet, Take 1 tablet by mouth daily., Disp: , Rfl: Folic acid 1 MG tablet, Take 1 tablet by mouth daily., Disp: , Rfl: Unzekiayhwr-Zrhkanexq-Wza C-Mn (Glucosamine 1500 Complex) capsule, Take by [...] HPI: Danyelle is an established patient of [facility]. She is here today for followup. She [...] CATARACT W/ IMPLANT (ECCE IOL) Bilateral 2018 [facility] TREATMENT OPEN PATELLAR FX W/ INTERNAL [...] times daily October 01, 2020 10:38am 10-01-2020 [facility] ([id number]), Disp: , Rfl: Docusate 100 MG capsule, Take 1 capsule by mouth 2 times daily., Disp: 60 capsule, Rfl: 0 Doxazosin 4 MG tablet, Take 1 tablet by mouth daily., Disp: , Rfl: Folic acid 1 MG tablet, Take 1 tablet by mouth daily., Disp: , Rfl: Zfwxjmcxfib-Uuwzxcfis-Dwz C-Mn (Glucosamine 1500 Complex) capsule, Take by [...] Weakness Trimethoprim Weakness documented in this encounter [facility] 03-22-2024 History of Presen t illness Narrative [...] 03/22/2024 3:49 PM Patient: Danyelle Haskins MR#: [id number] : 1955 Age: 68 y.o. Referring Physician: [...] CATARACT W/ IMPLANT (ECCE IOL) Bilateral 2018 [facility] TREATMENT OPEN PATELLAR FX W/ INTERNAL [...] October 01, 2020 10:38am 10-01-2020 [facility] ([id number]) Docusate 100 MG capsule Take 1 capsule by mouth 2 times daily. 60 capsule 0 Doxazosin 4 MG tablet Take 1 tablet by mouth daily. Folic acid 1 MG tablet Take 1 tablet by mouth daily. Ejpispurevq-Qyfkdqlpf-Kfa C-Mn (Glucosamine 1500 Complex) capsule Take by [...] HPI: Danyelle is an established patient of [facility]. She is here today for followup. She [...] have reviewed the findings of the clinical direct support staff and agree with their assessment. Ortho Nurse [...] 03/22/2024 3:49 PM Patient: Danyelle Haskins MR#: [id number] : 1955 Age: 68 y.o. Referring Physician: [...] CATARACT W/ IMPLANT (ECCE IOL) Bilateral 2018 [facility] TREATMENT OPEN PATELLAR FX W/ INTERNAL [...] times daily October 01, 2020 10:38am 10-01-2020 [facility] ([id number]) Docusate 100 MG capsule Take 1 capsule by mouth 2 times daily. 60 capsule 0 Doxazosin 4 MG tablet Take 1 tablet by mouth daily. Folic acid 1 MG tablet Take 1 tablet by mouth daily. Dsoypllhfrn-Mlodtjhhj-Iov C-Mn (Glucosamine 1500 Complex) capsule Take by [...] [sulfamethoxazole-trimethoprim], and levofloxacin. documented in this encounter [facility] 02-23-2024 History of Presen t illness Narrative Ortho Nurse - Established Patient Intake Room#: 4 Date: 02/23/2024 11:05 AM Patient: Danyelle Haskins MR#: [id number] : 1955 Age: 68 y.o. 4M L [...] CATARACT W/ IMPLANT (ECCE IOL) Bilateral 2018 [facility] TREATMENT OPEN PATELLAR FX W/ INTERNAL [...] October 01, 2020 10:38am 10-01-2020 [facility] ([id number]) Docusate 100 MG capsule Take 1 capsule by mouth 2 times daily. 60 capsule 0 Doxazosin 4 MG tablet Take 1 tablet by mouth daily. Folic acid 1 MG tablet Take 1 tablet by mouth daily. Npnewelrfih-Qscmcusqq-Vtw C-Mn (Glucosamine 1500 Complex) capsule Take by [...] times daily October 01, 2020 10:38am 10-01-2020 [facility] ([id number]), Disp: , Rfl: Docusate 100 MG capsule, Take 1 capsule by mouth 2 times daily., Disp: 60 capsule, Rfl: 0 Doxazosin 4 MG tablet, Take 1 tablet by mouth daily., Disp: , Rfl: Folic acid 1 MG tablet, Take 1 tablet by mouth daily., Disp: , Rfl: Qxikucvmsyk-Nfvmyssxl-Qvm C-Mn (Glucosamine 1500 Complex) capsule, Take by [...] SUBJECTIVE: Danyelle is an established patient of [facility]. She is here today for followup. She [...] 4 weeks' time. Continue the LUZ MARINA viera on Eliquis for DVT prophylaxis given her immobility and risk for developing a blood clot. All of her questions and concerns were addressed today to her satisfaction. Follow up in 4 weeks, sooner as needed. ([id number]) I have reviewed the findings of the clinical direct support staff and agree with their assessment. Rajinder Mora APRN-MARTY Ortho Nurse - Established Patient Intake Room#: 4 Date: 02/23/2024 11:05 AM Patient: Danyelle Haskins MR#: [id number] : 1955 Age: 68 y.o. 4M L TKA Pt stated she is doing ok on the L it is just laying here doing nothing, denies any pain in it.010 and the R is doing the same [...] CATARACT W/ IMPLANT (ECCE IOL) Bilateral 2018 [facility] TREATMENT OPEN PATELLAR FX W/ INTERNAL [...] October 01, 2020 10:38am 10-01-2020 [facility] ([id number]) Docusate 100 MG capsule Take 1 capsule by mouth 2 times daily. 60 capsule 0 Doxazosin 4 MG tablet Take 1 tablet by mouth daily. Folic acid 1 MG tablet Take 1 tablet by mouth daily. Mzvatpscqez-Ntkknmjoc-Feb C-Mn (Glucosamine 1500 Complex) capsule Take by [...] October 01, 2020 10:38am 10-01-2020 [facility] ([id number]), Disp: , Rfl: Docusate 100 MG capsule, Take 1 capsule by mouth 2 times daily., Disp: 60 capsule, Rfl: 0 Doxazosin 4 MG tablet, Take 1 tablet by mouth daily., Disp: , Rfl: Folic acid 1 MG tablet, Take 1 tablet by mouth daily., Disp: , Rfl: Ahqcbxulhng-Bkeprdjwg-Itg C-Mn (Glucosamine 1500 Complex) capsule, Take by [...] [sulfamethoxazole-trimethoprim], and levofloxacin. documented in this encounter [facility] 01-12-2024 History of Presen t illness Narrative Ortho Nurse - Established Patient Intake Room#: 1 ----follow-up from call from residential on 12.30.23 that she fractured her patella. [...] 01/12/2024 1:03 PM Patient: Danyelle Haskins MR#: [id number] : 1955 Age: 68 y.o. Referring Physician: [...] CATARACT W/ IMPLANT (ECCE IOL) Bilateral 2018 [facility] TREATMENT OPEN PATELLAR FX W/ INTERNAL [...] October 01, 2020 10:38am 10-01-2020 [facility] ([id number]) Docusate 100 MG capsule Take 1 capsule by mouth 2 times daily. 60 capsule 0 Doxazosin 4 MG tablet Take 1 tablet by mouth daily. Folic acid 1 MG tablet Take 1 tablet by mouth daily. Kfvwofxflot-Qpedgvhcq-Jyq C-Mn (Glucosamine 1500 Complex) capsule Take by [...] 04/26/23. My office received a call from [facility] on 12/30/23 stating patient suffered a fall [...] States she has been nonweightbearing. Pain of 11/16. She is here today for further evaluation. [...] have reviewed the findings of the clinical direct support staff and agree with their assessment. Ortho Nurse - Established Patient Intake Room#: 1 ----follow-up from call from residential on 12.30.23 that she fractured her patella. [...] 01/12/2024 1:03 PM Patient: Danyelle Haskins MR#: [id number] : 1955 Age: 68 y.o. Referring Physician: [...] Laterality: Left; Surgeon: New Mcclure MD; Location: [facility] OR ARTHROPLASTY KNEE TOTAL Right 04/26/2023 Laterality: Right; Surgeon: New Mcclure MD; Location: [facility] OR REVISION ARTHROPLASTY KNEE Left 11/21/2018 Laterality: Left; Surgeon: New Mcclure MD; Location: [facility] OR EXTRACTION EXTRACAPSULAR CATARACT W/ IMPLANT (ECCE IOL) Bilateral 2018 [facility] TREATMENT OPEN PATELLAR FX W/ INTERNAL [...] times daily October 01, 2020 10:38am 10-01-2020 [facility] ([id number]) Docusate 100 MG capsule Take 1 capsule by mouth 2 times daily. 60 capsule 0 Doxazosin 4 MG tablet Take 1 tablet by mouth daily. Folic acid 1 MG tablet Take 1 tablet by mouth daily. Dgmifqjwaqs-Tsqvpmjak-Kox C-Mn (Glucosamine 1500 Complex) capsule Take by [...] [sulfamethoxazole-trimethoprim], and levofloxacin. documented in this encounter [facility] 11-03-2023 History of Presen t illness Narrative [...] no MEDICAL CLEARANCE, CARDIOLOGY CLEARANCE [place] 11/11 09 DIFFICULT IV PLACEMENT Butterfly use in the [...] TRANSFUSION/REACTION Yes, no adverse reaction. CULTURAL OR GNOSTICIST BELIEFS THAT WILL AFFECT CARE no DIETARY RESTRICTIONS no CONCERNS FOR PERSONAL SAFETY no Have you been diagnosed with a concussion in the past 6 months? no Have you tested positive for COVID 19? (if pt does breathing is not back to baseline please order CXR) No Have you had your COVID vaccination? no ADVANCE DIRECTIVES Yes, on file with [facility] IF PATIENT HAS NOT BEEN DIAGNOSED WITH [...] 11/03/2023 1010 blood pressure elevated today at [facility]. Reports have white coat syndrome. It's never high like that when I check it at home. Denies headache or complaints. Reports that she will check the BP on arrival home. Encouraged to discuss with pcp if remains elevated, voiced understanding. Discharged ambulatory, gait steady with walker. documented in this encounter [facility] 11-03-2023 Instructions Everton Ball RN - 11/03/2023 10:[address] Mcclure's office will call you for your arrival time, 1-2 business days before your scheduled surgery. Please review your surgery checklist and bring your guide or booklet the day of surgery. Pre-Admission Testing Dept. [phone] Call if you have any changes in [...] hospital. DIRECTIONS: Park in the front main [facility] facing [address]. Enter through the front entrance and sign in at the Registration Desk at the front lobby. Thank you for allowing us the privilege [...] Yellow - take the day of surgery [place] - hold according to the doctor's instructions [...] times daily October 01, 2020 10:38am 10-01-2020 [facility] ([id number]) STOP 7 DAYS BEFORE YOUR SURGERY LAST DOSE: DATE TIME _ Doxazosin 4 MG tablet 4 mg, Oral, DAILY STOP TAKING 24 hours BEFORE YOUR SURGERY Last Dose: Date Time Folic acid 1 MG tablet 1,000 mcg, Oral, DAILY CONTINUE, but DO NOT take the morning of surgery. Last Dose: Date Time Gqfiuzgiocc-Aemlbwxli-Gqj C-Mn (Glucosamine 1500 Complex) capsule Oral, DAILY [...] Dose: Date Time documented in this encounter [facility] 11-03-2023 Miscellaneous Notes Addended by: EVERTON BALL on: 10/27/2023 10:19 AM Modules accepted: Orders Addended by: EVERTON BALL on: 11/01/2023 01:36 PM Modules accepted: Orders documented in this encounter [facility] 11-03-2023 Note Addended by: EVERTON QUIROGA on: 10/27/2023 10:19 AM Modules accepted: Orders [facility] 11-03-2023 Note Addended by: EVERTON QUIROGA on: 11/01/2023 01:36 PM Modules accepted: Orders [facility] 09-01-2023 History of Presen t illness Narrative Ortho Nurse - Established Patient Intake Room#: 1 ----- 4 month f\u R TKR and is doing great. Also concerned about left knee and that it keeps slipping out of place. No pain with the knee just instability and would like it looked at again. Date: 09/01/2023 1:06 PM Patient: Danyelle Haskins MR#: [id number] : 1955 Age: 68 y.o. Referring Physician: [...] CATARACT W/ IMPLANT (ECCE IOL) Bilateral 2018 [facility] TREATMENT OPEN PATELLAR FX W/ INTERNAL [...] times daily October 01, 2020 10:38am 10-01-2020 [facility] ([id number]) Doxazosin 4 MG tablet Take 1 tablet [...] to further discuss surgical interventions for optimal senior care management. Patient is also here today for [...] appointment for [facility] and the potential surgical date, and reviewing and signing the consent forms. I have reviewed the findings of the clinical direct support staff and agree with their assessment. Ortho Nurse - Established Patient Intake Room#: 1 ----- 4 month f\u R TKR and is doing great. Also concerned about left knee and that it keeps slipping out of place. No pain with the knee just instability and would like it looked at again. Date: 09/01/2023 1:06 PM Patient: Danyelle Haskins MR#: [id number] : 1955 Age: 68 y.o. Referring Physician: [...] CATARACT W/ IMPLANT (ECCE IOL) Bilateral 2017 [facility] TREATMENT OPEN PATELLAR FX W/ INTERNAL [...] times daily October 01, 2020 10:38am 10-01-2020 [facility] ([id number]) Doxazosin 4 MG tablet Take 1 tablet [...] [sulfamethoxazole-trimethoprim], and levofloxacin. documented in this encounter [facility] 05-19-2023 History of Presen t illness Narrative Ortho Nurse - Established Patient Intake Room#: 5 Date: 05/19/2023 2:43 PM Patient: Danyelle Haskins MR#: [id number] : 1955 Age: 67 y.o. 3 wks s/p R TKA. She states she is doing well and has minimal pain at times. She is using a walker for assistive device. Referring Physician: Rajinder Mora APRN-CNP Insurance: Payor: MEDICARE / Plan: MEDICARE [...] CATARACT W/ IMPLANT (ECCE IOL) Bilateral 2018 [facility] TREATMENT OPEN PATELLAR FX W/ INTERNAL [...] October 01, 2020 10:38am 10-01-2020 [facility] ([id number]) Docusate 100 MG capsule Take 1 capsule [...] October 01, 2020 10:38am 10-01-2020 [facility] ([id number]), Disp: , Rfl: Docusate 100 MG capsule, [...] mesh. All pertinent portions of the clinical direct support staff documentation was reviewed and agree. EFREN Logan Ortho Nurse - Established Patient Intake Room#: 5 Date: 05/19/2023 2:43 PM Patient: Danyelle Haskins MR#: [id number] : 1955 Age: 67 y.o. 3 wks s/p R TKA. She states she is doing well and has minimal pain at times. She is using a walker for assistive device. Referring Physician: Rajinder Mora APRN-CNP Insurance: Payor: MEDICARE / Plan: MEDICARE [...] CATARACT W/ IMPLANT (ECCE IOL) Bilateral 2018 [facility] TREATMENT OPEN PATELLAR FX W/ INTERNAL [...] times daily October 01, 2020 10:38am 10-01-2020 [facility] ([id number]) Docusate 100 MG capsule Take 1 capsule [...] times daily October 01, 2020 10:38am 10-01-2020 [facility] ([id number]), Disp: , Rfl: Docusate 100 MG capsule, [...] [sulfamethoxazole-trimethoprim], and levofloxacin. documented in this encounter [facility] 08-31-2021 Evaluation note Encounter Date Diagnosis Assessment [...] management and focal injections would be appropriate. [facility] Other 05-10-2021 Note [id number]:127[facility] 03-12-2021 NoteCystoscopy with Urethral Dilation ? [...] if you have a fever over 100 degreesThe [facility] of Present illness Narrative* New [...] have reviewed the findings of the clinical direct support staff and agree with their assessment. Ortho Nurse Established Patient Intake Room#: 3 F/U from , seen 11-19-20, left knee TKA 11-21-18 with extensor mechanism repair, states her pain is a 2 and she is doing much better Date: 03/11/2021 1:59 PM Patient: Danyelle Haskins MR#: [id number] : 1955 Age: 65 y.o. Referring Physician: [...] CATARACT W/ IMPLANT (ECCE IOL) Bilateral 2018 [facility] TREATMENT OPEN PATELLAR FX W/ INTERNAL [...] mouth 3 times daily as needed. Biotin 80368 MCG Tab take 2 tablets by mouth 2 times daily.. Calcium Carb-Cholecalciferol (CALCIUM 600 + D) 600-200 MG-UNIT Tab tablet Take 2.5 tablets by mouthDaily (with lunch). Diclofenac Sodium 1 % Gel gel Diclofenac Diclofenac Sodium Active 4 GM Topical Four times daily October 01, 2020 10:38am 10-01-2020 [facility] ([id number]) ferrous sulfate 325 (65 Fe) MG Tab [...] hour before procedure (Patient not taking: Reported 03/11/2021) 8 capsule 1 apixaban 2.5 MG Tab [...] as needed. , Disp: , Rfl: Biotin 78049 MCG Tab, take 2 tablets by mouth 2 times daily.. , Disp: , Rfl: Calcium Carb-Cholecalciferol (CALCIUM 600 + D) 600-200 MG-UNIT Tab tablet, Take 2.5 tablets by mouth Daily (with lunch). , Disp: , Rfl: Diclofenac Sodium 1 % Gel gel, Diclofenac Diclofenac Sodium Active 4 GM Topical Four times daily October 01, 2020 10:38am 10-01-2020 [facility] ([id number]), Disp: , Rfl: ferrous sulfate 325 (65 [...] 03/11/2021 1:59 PM Patient: Danyelle Haskins MR#: [id number] : 1955 Age: 65 y.o. Referring Physician: [...] CATARACT W/ IMPLANT (ECCE IOL) Bilateral 2018 [facility] TREATMENT OPEN PATELLAR FX W/ INTERNAL [...] mouth 3 times daily as needed. Biotin 07261 MCG Tab take 2 tablets by mouth 2 times daily.. Calcium Carb-Cholecalciferol (CALCIUM 600 + D) 600-200 MG-UNIT Tab tablet Take 2.5 tablets by mouthDaily (with lunch). Diclofenac Sodium 1 % Gel gel Diclofenac Diclofenac Sodium Active 4 GM Topical Four times daily October 01, 2020 10:38am 10-01-2020 [facility] ([id number]) ferrous sulfate 325 (65 Fe) MG Tab [...] as needed. , Disp: , Rfl: Biotin 58689 MCG Tab, take 2 tablets by mouth 2 times daily.. , Disp: , Rfl: Calcium Carb-Cholecalciferol (CALCIUM 600 + D) 600-200 MG-UNIT Tab tablet, Take 2.5 tablets by mouth Daily (with lunch). , Disp: , Rfl: Diclofenac Sodium 1 % Gel gel, Diclofenac Diclofenac Sodium Active 4 GM Topical Four times daily October 01, 2020 10:38am 10-01-2020 [facility] ([id number]), Disp: , Rfl: ferrous sulfate 325 (65 [...] oxcarbazepine; and bactrim [sulfamethoxazole-trimethoprim]. [facility] Diagnosis Left knee pain, unspecified chronicity- Primary Right knee pain, unspecified chronicity [facility]* Diagnosis Hx of total knee arthroplasty, right- Primary [facility] note* Diagnosis Hx of total knee arthroplasty, right- Primary Hx of total knee arthroplasty, left documented [facility]* Diagnosis Preop testing- Primary Preoperative examination, unspecified Abnormal finding of blood chemistry, unspecified Abnormal coagulation profile Failed total left knee replacement, initial encounter documented in [facility] encounter [facility]* Diagnosis Pain in right knee Pain in joint, lower leg [facility]* Diagnosis Right knee pain, unspecified chronicity- Primary [facility]* Diagnosis Hx of total knee arthroplasty, left- Primary [facility]* Diagnosis Pain in both knees, unspecified chronicity- Primary [facility]* Diagnosis Pain in both knees, unspecified chronicity- Primary [facility]* Diagnosis Pain in both knees, unspecified chronicity- Primary [facility] Diagnosis Abscess of toe, right- Primary Acquired deformity of left toe documented in this encounter [facility] HealthcareEvaluation [facility]* Diagnosis Pain due to onychomycosis of toenails of both feet- Primary Acquired deformity of left toe documented in this encounter [facility] HealthcareEvaluation note* Diagnosis Polyneuropathy- Primary Unspecified hereditary and idiopathic peripheral neuropathy Spinal stenosis of lumbar region, unspecified whether neurogenic claudication present Degenerative disc disease, lumbar documented in this encounter [facility] HealthcareEvaluation note* Diagnosis Spinal stenosis of lumbar region, unspecified whether neurogenic claudication present- Primary Degenerative disc disease, lumbar Facet arthritis of lumbar region Blepharospasm Polyneuropathy Unspecified hereditary and idiopathic peripheral neuropathy Paresthesias Disturbance of skin sensation documented in this encounter [facility] HealthcareEvaluation note* Diagnosis Paresthesias- Primary Disturbance of skin sensation Blepharospasm Spinal stenosis of lumbar region, unspecified whether neurogenic claudication present documented in this encounter [facility] HealthcareHistory general Narrative - Reported* Type Description Date Medical History connective tissue disease Medical History Arthritis Medical History spinal compression Surgical History back surgery Surgical History ganglion cyst Surgical History tonsillectomy Surgical History hysterectomy Surgical History tendon repair Surgical History wrist surgery Surgical History cataracts, bilaterally Surgical History Abdominal Ablation Hospitalization History see surgical hx [facility] Other reason for referral (narrative)* Consultation (Routine) - Patient to Arrange Specialty Diagnoses / Procedures Referred By Contac t Referred To Contact Physical Therapy Diagnoses Pain in both knees, unspecified chronicity New Mcclure MD [address] [place] [address] Referral ID Status Reason Start Date Expiration Date V isits Requested Visits Authorized [id number] Patient to Arrange 05/31/2024 06/25/2025 [address] [facility] [employer] [facility] Summary Purpose Family History No Family History Records Found Relationship Condition Age at Onset Recorded Date/T kayode Not Specified Diabetes mellitus Unknown Arthritis Unknown Family history of cataracts Unknown Hypertension Unknown father Liposarcoma Unknown sister Malignant neoplasm of thyroid gland Unkno wn family member Pituitary neoplasm Unknown Advance Directives No Advanced Directives Records FoundDocuments on File Type Date Recorded Patient Family Centered Specialist Expl anation Advance Directives/Living Will 11/21/2018 8:22 AM Advance Directives/Living Will 11/21/2018 8:26 AM Latest Code Status on File Code Status Date Activated Date Inactivated Comments Full Code 11/21/2018 2:46 PM Full Code 07/18/2017 4:04 PM 07/21/2017 7:25 PM Documents on File Type Date Recorded Patient Family Centered Specialist Expl anation Advance Directives/Living Will 11/21/2018 8:22 [...] Pre-op exam Procedures ECG New Mcclure MD [address] [place] [address] Status Reason Specialty Diagnoses / Procedures Referred By Contact Referred To Contact New Request Procedures ACTIVITY TOLERATED Rajinder Mora APRN-CNP [address] [place] [phone] Status Reason Specialty Diagnoses / Procedures Referre d By Contact Referred To Contact Rajinder Mora APRN-CNP [address] [place] [phone] Status Reason Specialty Diagnoses / Procedures Referred By Contact Referred To Contact New Request Diagnoses Hx of total knee arthroplasty, left Procedures XR KNEE LEFT 2 VIEWS XR KNEE LEFT 3 VIEWS Rajinder Mora, TIMBER HARVESTER OPERATOR-SERVICE OPERATOR [address] [phone] Status Reason Specialty Diagnoses / Procedures Referred By Contact Referred To Contact New Request Physical Therapy Diagnoses History of total knee arthroplasty, left Right hip pain New Mcclure MD [address] [place], [place] [phone] Scheduling Instructions . Status Reason Specialty Diagnoses / Procedures Referred By Contact Referred To Contact Schedule Outgoing - Transfer of Care Physical Therapy Diagnoses History of total knee arthroplasty, left New Mcclure MD [address] [place], [place] [phone] Status Reason Specialty Diagnoses / Procedures Referred By Contact Referred To Contact New Request Diagnoses Right hip pain Procedures XR HIP WITH PELVIS RIGHT New Mcclure MD [address] [place], [place] [phone] Status Reason Specialty Diagnoses / Procedures Referred By Contact Referred To Contact New Request Sports Ortho and Primary Care Sports Diagnoses Right hip pain New Mcclure MD [address] [place], [place] [phone] Status Reason Specialty Diagnoses / Procedures Referred By Contact Referred To Contact New Request Diagnoses Right knee pain, unspecified chronicity Procedures LARGE JOINT INJECTION: R knee New Mcclure MD [address] [place], [place] [phone] Status Reason Specialty Diagnoses / Procedures Referred By Contact Referred To Contact New Request Diagnoses Left knee pain, unspecified chronicity Procedures XR KNEE LEFT 2 VIEWS XR KNEE LEFT 3 VIEWS New Mcclure MD [address] [place], [place] [phone] Status Reason Specialty Diagnoses / Procedures Referred By Contact Referred To Contact Pending Review Diagnoses History of total knee arthroplasty, left Procedures XR KNEE LEFT 3 VIEWS New Mcclure MD [address] [place] [address] Status Reason Specialty Diagnoses / Procedures Referred By Contact Referred To Contact Patient to Arrange Physical Therapy Diagnoses Pain in prosthetic joint, initial encounter New Mcclure MD [address] [place] [address] Status Reason Specialty Diagnoses / Procedures Referred By Contact Referred To Contact New Request Diagnoses Hx of total knee arthroplasty, left Procedures XR KNEE LEFT 3 VIEWS New Mcclure MD [address] [place], [place] [phone] Status Reason Specialty Diagnoses / Procedures Referred By Contact Referred To Contact Patient to Arrange Physical Therapy Diagnoses History of total knee arthroplasty, left New Mcclure MD [address] [place], [place] [phone] Specialty Diagnoses / Procedures Referred By Contac t Referred To Contact Diagnoses Hx of total knee arthroplasty, right Procedures XR KNEE RIGHT 3 VIEWS Rajinder Mora, TIMBER HARVESTER OPERATOR-SERVICE OPERATOR [address] [place], [place] [phone] Referral ID Status Reason Start Date Expiration Date V isits Requested Visits Authorized [id number] New Request 05/11/2023 06/04/2024 1 1 Specialty Diagnoses / Procedures Referred By Contac t Referred To Contact Diagnoses Hx of total knee arthroplasty, right Procedures XR BONE LENGTH STUDY New Mcclure MD [address] [place] [address] Referral ID Status Reason Start Date Expiration Date V isits Requested Visits Authorized [id number] New Request 08/30/2023 09/23/2024 1 1 Specialty Diagnoses / Procedures Referred By Contac t Referred To Contact Diagnoses Hx of total knee arthroplasty, right Procedures XR KNEE RIGHT 3 VIEWS New Mcclure MD [address] [place] [address] Referral ID Status Reason Start Date Expiration Date V isits Requested Visits Authorized [id number] New Request 08/30/2023 09/23/2024 1 1 Specialty Diagnoses / Procedures Referred By Contac t Referred To Contact Diagnoses Hx of total knee arthroplasty, left Procedures XR KNEE LEFT 3 VIEWS New Mcclure MD [address] [place] [address] Referral ID Status Reason Start Date Expiration Date V isits Requested Visits Authorized [id number] New Request 08/30/2023 09/23/2024 1 1 Specialty Diagnoses / Procedures Referred By Contac t Referred To Contact Diagnoses Preop testing Procedures PREPARE TO TRANSFUSE RED BLOOD CELLS New Mcclure MD [address] [place] [address] Referral ID Status Reason Start Date Expiration Date V isits Requested Visits Authorized [id number] New Request 11/01/2023 11/25/2024 1 1 Specialty Diagnoses / Procedures Referred By Contac t Referred To Contact Diagnoses Preop testing Procedures ECG New Mcclure MD [address] [place] [address] Referral ID Status Reason Start Date Expiration Date V isits Requested Visits Authorized [id number] New Request 10/27/2023 11/20/2024 1 1 Specialty Diagnoses / Procedures Referred By Contac t Referred To Contact Diagnoses Right knee pain, unspecified chronicity Procedures XR KNEE RIGHT 3 VIEWS New Mcclure MD [address] [place] [address] Referral ID Status Reason Start Date Expiration Date V isits Requested Visits Authorized [id number] New Request 01/09/2024 02/02/2025 1 1 Specialty Diagnoses / Procedures Referred By Contac t Referred To Contact Diagnoses Hx of total knee arthroplasty, left Procedures XR KNEE LEFT 1-2 VIEWS XR KNEE LEFT 3 VIEWS Rajinder Mora, TIMBER HARVESTER OPERATOR-SERVICE OPERATOR [address] [place] [address] Referral ID Status Reason Start Date Expiration Date V isits Requested Visits Authorized [id number] New Request 02/21/2024 03/17/2025 1 1 Specialty Diagnoses / Procedures Referred By Contac t Referred To Contact Diagnoses Hx of total knee arthroplasty, left Procedures XR BONE LENGTH STUDY Rajinder Mora, TIMBER HARVESTER OPERATOR-SERVICE OPERATOR [address] [place] [address] Referral ID Status Reason Start Date Expiration Date V isits Requested Visits Authorized [id number] New Request 02/21/2024 03/17/2025 1 1 Specialty Diagnoses / Procedures Referred By Contac t Referred To Contact Diagnoses Polyneuropathy Spinal stenosis of lumbar region, unspecified whether neurogenic claudication present Degenerative disc disease, lumbar Gaby Christianson, HARPAL [address] [place] [phone] Referral ID Status Reason Start Date Expiration Date V isits Requested Visits Authorized [id number] Pending Review 2024 01/15/2025 1 1 Instructions * Patient Instructions - Everton Ball RN - 10/13/2018 12:21 PM EST Formatting of this note may be different from the original. Genoveva from Dr Mcclure's office will call you for your arrival time, 1-2 business days before your scheduled surgery. Please review your surgery checklist and bring your Guide or binder the day of surgery. Pre-Admission Testing Dept. [phone] Call if you have any changes in [...] of surgery LAST DOSE: DATE TIME Biotin 50113 MCG Tab take 2 tablets by mouth [...] LAST DOSE: DATE TIME Hydroxychloroquine Sulfate (HYDROXYCHLOROQUINE, [id number],) 200 MG Tab Take 200 mg by [...] reports feeling ready to go to [facility] later today Cognitive Status Examination Orientation Status [...] reach Communication [facility] Transfer Skill: Sit To Stand, Rehab Eval [place] (Sit-Stand Transfers) supervision Physical Assist/Nonphysical Assist: Sit/Stand 1 person assist Weight-Bearing Restrictions: Sit/Stand toe touch weight-bearing Assistive Device For Transfer: Sit/Stand 2 wheeled walker Gait Skills, PT Eval Level of Appling: Gait stand-by assist Weight-Bearing Restrictions: Gait toe touch weight-bearing Assistive Device For Transfer: Gait 2 wheeled walker Gait Distance other (see comments) (60 ft) Gait Analysis, PT Eval Gait Pattern Used swing-to gait Stair Negotiation Level of Appling: Stair Negotiation unable to perform Clinical Impression [...] training. Maintain frequency yes * Maryam Zapata, [facility],PharmD - 11/24/2018 1:26 PM EST Apixaban (Eliquis) Patient Education / Transition of Care PATIENT: Danyelle Haskins Room/Bed: [facility] Apixaban (Eliquis) Education Patient was provided with Apixaban (Eliquis) Education Sheet. Discussed in detail with patient about what Apixaban is, to take as directed, what to do if a dose is missed, and emphasized that compliance is extremely important to avoid stroke or any other serious event. Additional education was provided regarding side effects that should be reported to their physicianor health lawn care worker as soon as possible. I also advised the patient to provide an updated medication list to all health director of critical care as certain medications can interact with apixaban. Patient verbally acknowledged an understanding of the information provided. Please contact pharmacyif there are any questions. Signed: Maryam Zapata [facility],PharmD, [facility] Phone: [phone] Date/Time: 11/24/2018 1:26 PM * Lawrence Krystal, OT - 11/23/2018 3:04 PM EST Formatting [...] UE exercises Therapist Information License # [id number] * Tanvi Hernandez, SERVICE OPERATOR - 11/23/2018 1:43 PM EST Formatting of this note may be different from the original. DAILY PROGRESS NOTE Date of Evaluation: 11/23/18 1:44 PM [facility] LOS: 2 days SUBJECTIVE: Patient [...] S/p left TKA POD#2 PT OT social services manager discharge planning DVT prophylaxis Eliquis PT OT SS for dc planning- will likely discharge next 24-48 hours to [facility] GI/DVT prophylaxis with protonix and SCD [...] assessment and plan and agree with the SERVICE OPERATOR findings and plan of care as [...] like knee brace had slid down leg. SOFTWARE DEVELOPMENT COORDINATOR began with readjusting knee brace in proper [...] Transfer Skill: Sit To Stand, Rehab Eval App[place] (Sit-Stand Transfers) contact guard Physical Assist/Nonphysical Assist: Sit/Stand 1 person assist Weight-Bearing Restrictions: Sit/Stand toe touch weight-bearing Assistive Device For Transfer: Sit/Stand 2 wheeled walker Gait Skills, PT Eval Level of Appling: Gait contact guard Weight-Bearing Restrictions: Gait toe [...] device on. Impression: [facility] PLAN: 1. PT/OT 2. DVT prophylaxis 3. Discharge planning * HutchisonLucioDemarcus, SOFTWARE DEVELOPMENT COORDINATOR - 11/22/2018 4:07 PM EST Formatting of [...] Transfer Skill: Sit To Stand, Rehab Eval Appling (Sit-Stand Transfers) contact guard Physical Assist/Nonphysical Assist: Sit/Stand 1 person assist Weight-Bearing Restrictions: Sit/Stand toe touch weight-bearing (pt using NWB on L LE) Assistive Device For Transfer: Sit/Stand 2 wheeled walker Gait Skills, PT Eval Level of Appling: Gait contact guard Weight-Bearing Restrictions: Gait toe touch weight-bearing (Pt using NWB on L LE) Assistive Device For Transfer: Gait 2 wheeled walker Gait Distance (20ft, 20ft) Gait Analysis, PT Eval Gait Pattern Used swing-to gait Plan Plan for next visit Plan to continue with strengthening and transfers/gait Maintain frequency yes * Aurora Arroyo, DRYWALL BOARDHANGER - 11/22/2018 12:52 PM EST Call received from [facility] stating they can take patient anytime on Tuesday afternoon or after. * Demarcus Hutchison, SOFTWARE DEVELOPMENT COORDINATOR - 11/22/2018 11:56 AM EST Formatting of [...] Transfer Skill: Sit To Stand, Rehab Eval Appling (Sit-Stand Transfers) contact guard Physical Assist/Nonphysical Assist: Sit/Stand 1 person assist Weight-Bearing Restrictions: Sit/Stand toe touch weight-bearing (NWB on L LE) Assistive Device For Transfer: Sit/Stand 2 wheeled walker Gait Skills, PT Eval Level of Appling: Gait contact guard Weight-Bearing Restrictions: Gait toe touch weight-bearing (pt using NWB on L LE) Assistive Device For Transfer: Gait 2 wheeled walker Gait Distance 25 feet Gait Analysis, PT Eval Gait Pattern Used swing-to gait Plan Plan for next visit Plan to continue with strengthening, transfers/gait, and practice car transfer Maintain frequency yes * Jacey Valdez, TIMBER HARVESTER OPERATOR-SERVICE OPERATOR - 11/22/2018 10:52 AM EST Formatting of this note may be different from the original. DAILY PROGRESS NOTE Date of Evaluation: 11/22/18 10:53 AM [facility] LOS: 1 day SUBJECTIVE: Patient [...] S/p left TKA POD#1 PT OT social services manager discharge planning DVT prophylaxis Eliquis PT OT SS for dc planning GI/DVT prophylaxis with protonix and SCD and Eliquis Associated attestation - Brady Lozoya MD - 11/22/2018 4:50 PM EST Danyelle Haskins was personally seen and examined. I agree with the examination, assessment, and plan as described below by the PATTERNMAKER PRESSURE CAST with the following additions/exceptions: Feeling well today. [...] Continue with post operative care. * Rajinder Mora APRN-MARTY - 11/22/2018 8:52 AM EST Formatting of [...] plans; post hospital: SEE SS NOTES * ApolinarNidhi west - 11/22/2018 8:43 AM EST CM met with patient on this date to discuss discharge plans. Patient explained that she is currently living alone in a single story home. Patient stated that she does not have any children, but she does have family in the area that is helpful and supportive. Patient states that she is currently employed at [employer] in [place]. She stated that prior to the surgery she was completely independent and able to cook, clean and drive. Patient states that her goal upon discharge it to go to an extended care facility to get more therapy for her knee and regain her strength. Patient stated that she wanted to go to the [facility] as it is close to her home. Patient reviewed and signed the Area Nursing facility list for [facility]. CM to make referral. CM to follow. [...] 0 Equipment Available wheeled walker;shower chair;elevated toilet seat;accounting auditor;sock-aid;long-handled shoe horn;hand held shower hose Cognitive Status Examination Orientation Status (Cognition) oriented x 4 Level of Consciousness alert Able to Follow Commands (Communication) WNL Personal Safety and Judgment intact Short Term Memory intact Shelter Memory intact Vision (check all that apply) Vision prescription glasses Sensory Examination Sensory Examination WFL (numbness in bilateral LE at baseline) Range of Motion (ROM) Range of Motion Examination bilateral upper extremity ROM was WFL Bed Mobility Skill: Supine to Sit, Rehab Eval Level of Appling: Supine/Sit stand-by assist Physical Assist/Nonphysical Assist: Supine/Sit 1 person assist Transfer Skill: Sit to Stand, Rehab Eval Level of Appling: Sit/Stand contact guard Physical Assist/Nonphysical Assist: Sit/Stand 1 person assist Weight-Bearing Restrictions: Sit/Stand toe touch weight-bearing Assistive Device for Transfer: Sit/Stand wheeled walker Upper Body Dressing Level of Appling (set up) Lower Body Dressing Level of Appling moderate assist (50% patients effort) Physical Assist/Nonphysical Assist 1 person assist Assistive Device accounting auditor General Therapy Interventions Planned Therapy Interventions (OT [...] Impairment in Daily Activity - CH CURRENT AM-PAC Daily Activity Inpatient Short Form [...] Goals Goals For Discharge discharge to [facility] Discussed risk / benefits with patient Therapist Recommendations At Discharge Recommendations OT Services recommended at Discharge Plan Plan Narrative continue with bathing, dressing and transfer training Therapist Information License # [id number] 1. Pt will complete LB dressing min [...] may be different from the original. 11/21/18 3639 General Information RN Approved Intervention as tolerated [...] Supine to Sit, Rehab Eval Level of Appling: Supine/Sit stand-by assist Transfer Skill: Sit To Stand, Rehab Eval App[place] (Sit-Stand Transfers) minimum assist (75% patient effort) Weight-Bearing Restrictions: Sit/Stand toe touch weight-bearing Assistive Device For Transfer: Sit/Stand 2 wheeled walker Gait Skills, PT Eval Level of Appling: Gait contact guard Weight-Bearing Restrictions: Gait toe [...] swelling, and pt reports understanding. PRIOR LEVEL [facility] Basic Mobility Inpatient Short Form Turning over in bed 4 - No Assistance Sitting/standing from chair 4 - No Assistance Moving from lying on back to sitting 4 - No Assistance Moving to and from bed to chair 4 - No Assistance Walk in hospital room 4 - No Assistance Climbing 3-5 steps with a railing 4 - No Assistance [facility] Mobility Raw Score 24 PR[facility]EL [facility] Mobility Functional Limitation/Modifier 0.00% Prior Functional Impairment in Basic Mobility - CH CURRENT [facility] Basic Mobility Inpatient Short Form Turning [...] 2 - A Lot of Assistance CURRENT [facility] Mobility Raw Score 17 CURRENT [facility] Mobility Functional Limitation/Modifier 50.57% Currently Impaired in Basic Mobility - CK Projected [facility] Mobility Raw Score 20 Projected [facility] Mobility Functional Limitation/Modifier 35.83% Projected Functional [...] as able. Therapist Information [place] # [id number] PT Goals: 1. Pt will demonstrate understanding [...] SLR on LLE. PTAs notified. * Rajinder Mora, NIURKA-MARTY - 11/21/2018 2:04 PM EST THIS PATIENT HAS HAD ORTHOPEDIC SURGERY AND IS EXPECTED TO HAVE PAIN REQUIRING NARCOTICS FOR >7 DAYS AND MAY NEED UP TO 12 tabs of oxycodone PER DAY AND THEREFORE 60tabs ARE BEING DISPENSED IN ACCORDANCE WITH POC DISCUSSED WITH DR MCCLURE. in this encounter* Rajidner Mora APRN-CNP - 12/14/2018 3:00 PM EST Formatting of this note may be different from the original. HISTORY OF PRESENT ILLNESS: Danyelle is an established patient of [facility]. She is here today for followup. She [...] per her previous regimen prescribed by her wine maker. I will leave this up to the house physician at the [facility], where she is residing today. [...] and concerns were addressed to her satisfaction. (DOC:[id number]) Procedures I have reviewed the findings of the clinical direct support staff and agree with their assessment. EFREN [facility] Nurse Established Patient Intake Room#: 4 Date: 12/14/2018 2:47 PM Patient: Danyelle Haskins MR#: [id number] : 1955 Age: 63 y.o. 3 wk s/p L knee revision. Pt states she is doing well, denies any pain. T ROM brace in place lockedin extension. Referring Physician: Rajinder Mora APRN-CNP Insurance: Payor: MEDICARE / Plan: MEDICARE [...] CATARACT W/ IMPLANT (ECCE IOL) Bilateral 2018 [facility] TREATMENT OPEN PATELLAR FX W/ INTERNAL [...] mouth 3 times daily as needed. Biotin 23884 MCG Tab take 2 tablets by mouth [...] as needed. , Disp: , Rfl: Biotin 95217 MCG Tab, take 2 tablets by mouth [...] 12/14/2018 2:47 PM Patient: Danyelle Haskins MR#: [id number] : 1955 Age: 63 y.o. 3 wk s/p L knee revision. Pt states she is doing well, denies any pain. T ROM brace in place lockedin extension. Referring Physician: Rajinder Mora APRN-CNP Insurance: Payor: MEDICARE / Plan: MEDICARE [...] CATARACT W/ IMPLANT (ECCE IOL) Bilateral 2017 [facility] TREATMENT OPEN PATELLAR FX W/ INTERNAL [...] mouth 3 times daily as needed. Biotin 14206 MCG Tab take 2 tablets by mouth [...] as needed. , Disp: , Rfl: Biotin 47220 MCG Tab, take 2 tablets by mouth [...] have reviewed the findings of the clinical direct support staff and agree with their assessment. New Mcclure MD Ortho Nurse Established Patient Intake Room#: 3 Date: 03/01/2019 2:16 PM Patient: Danyelle Haskins MR#: [id number] : 1955 Age: 63 y.o. 6wk F/U [...] CATARACT W/ IMPLANT (ECCE IOL) Bilateral 2018 [facility] TREATMENT OPEN PATELLAR FX W/ INTERNAL [...] mouth 3 times daily as needed. Biotin 68448 MCG Tab take 2 tablets by mouth [...] as needed. , Disp: , Rfl: Biotin 68674 MCG Tab, take 2 tablets by mouth [...] 03/01/2019 2:16 PM Patient: Danyelle Haskins MR#: [id number] : 1955 Age: 63 y.o. 6wk F/U [...] CATARACT W/ IMPLANT (ECCE IOL) Bilateral 2018 [facility] TREATMENT OPEN PATELLAR FX W/ INTERNAL [...] mouth 3 times daily as needed. Biotin 45281 MCG Tab take 2 tablets by mouth [...] as needed. , Disp: , Rfl: Biotin 73944 MCG Tab, take 2 tablets by mouth [...] have reviewed the findings of the clinical direct support staff and agree with their assessment. New Mcclure MD Ortho Nurse Established Patient Intake Room#: 4 F/U Right hip, feeling better, pain of 5-6 when doing steps, done with PT; Left TKA 11-21-, last PT was yesterday, pain of 1-2 Date: 04/18/2019 4:31 PM Patient: Danyelle Haskins MR#: [id number] : 1955 Age: 63 y.o. Referring Physician: [...] CATARACT W/ IMPLANT (ECCE IOL) Bilateral 2018 [facility] TREATMENT OPEN PATELLAR FX W/ INTERNAL FIXATION OR PATELLECTOMY Left 07/18/2017 Laterality: Left; Surgeon: New Mcclure MD; Location: [facility] PATELLECTOMY/HEMIPATELLECTOMY Left 07/18/2017 Laterality: Left; Surgeon: New Mcclure MD; Location: [facility] EXCISION SKIN LESION 07/2016 ARTHROPLASTY [...] mouth 3 times daily as needed. Biotin 56785 MCG Tab take 2 tablets by mouth [...] as needed. , Disp: , Rfl: Biotin 15052 MCG Tab, take 2 tablets by mouth [...] 04/18/2019 4:31 PM Patient: Danyelle Haskins MR#: [id number] : 1955 Age: 63 y.o. Referring Physician: [...] CATARACT W/ IMPLANT (ECCE IOL) Bilateral 2018 [facility] TREATMENT OPEN PATELLAR FX W/ INTERNAL [...] mouth 3 times daily as needed. Biotin 48361 MCG Tab take 2 tablets by mouth [...] as needed. , Disp: , Rfl: Biotin 21076 MCG Tab, take 2 tablets by mouth [...] perhaps not, though she is closer towards long-term. She has had previous extensor mechanism reconstruction [...] of the right knee, which demonstrate knee, maaf-[id number] arthritis of the lateral compartment, and multiple [...] she like to proceed with surgical revision. ([id number]) LARGE JOINT INJECTION: R knee Date/Time: 11/21/2019 [...] have reviewed the findings of the clinical direct support staff and agree with their assessment. New Mcclure MD Ortho Nurse Established Patient Intake Room#: 3---1 year post-op check for left TKA . She has been doing well. Date: 11/21/2019 1:38 PM Patient: Danyelle Haskins MR#: [id number] : 1955 Age: 64 y.o. Referring Physician: [...] CATARACT W/ IMPLANT (ECCE IOL) Bilateral 2017 [facility] TREATMENT OPEN PATELLAR FX W/ INTERNAL [...] mouth 3 times daily as needed. Biotin 10285 MCG Tab take 2 tablets by mouth [...] alendronate; gabapentin; and oxcarbazepine. * Gisella Adair COMMISSARY STEWARD - 11/21/2019 1:10 PM EST Ortho Nurse Established Patient Intake Room#: 3---1 year post-op check for left TKA . She has been doing well. Date: 11/21/2019 1:38 PM Patient: Danyelle Haskins MR#: [id number] : 1955 Age: 64 y.o. Referring Physician: [...] CATARACT W/ IMPLANT (ECCE IOL) Bilateral 2018 [facility] TREATMENT OPEN PATELLAR FX W/ INTERNAL [...] mouth 3 times daily as needed. Biotin 71970 MCG Tab take 2 tablets by mouth [...] have reviewed the findings of the clinical direct support staff and agree with their assessment. Ortho Nurse Established Patient Intake Room#: 2 2 year Left TKA 11-21-18, pain of 2, cannot straighten her leg and it varinder, Amoxicillin was ordered today Date: 11/19/2020 2:31 PM Patient: Danyelle Haskins MR#: [id number] : 1955 Age: 65 y.o. Referring Physician: [...] CATARACT W/ IMPLANT (ECCE IOL) Bilateral 2018 [facility] TREATMENT OPEN PATELLAR FX W/ INTERNAL [...] Take 500 mg by mouth daily. Biotin 63862 MCG Tab take 2 tablets by mouth 2 times daily.. Calcium Carb-Cholecalciferol (CALCIUM 600 + D) 600-200 MG-UNIT Tab tablet Take 2.5 tablets by mouthDaily (with lunch). Diclofenac Sodium 1 % Gel gel Diclofenac Diclofenac Sodium Active 4 GM Topical Four times daily October 01, 2020 10:38am 10-01-2020 [facility] ([id number]) ferrous sulfate 325 (65 Fe) MG Tab [...] by mouth daily., Disp: , Rfl: Biotin 14406 MCG Tab, take 2 tablets by mouth 2 times daily.. , Disp: , Rfl: Calcium Carb-Cholecalciferol (CALCIUM 600 + D) 600-200 MG-UNIT Tab tablet, Take 2.5 tablets by mouth Daily (with lunch). , Disp: , Rfl: Diclofenac Sodium 1 % Gel gel, Diclofenac Diclofenac Sodium Active 4 GM Topical Four times daily October 01, 2020 10:38am 10-01-2020 [facility] ([id number]), Disp: , Rfl: ferrous sulfate 325 (65 [...] 11/19/2020 2:31 PM Patient: Danyelle Haskins MR#: [id number] : 1955 Age: 65 y.o. Referring Physician: [...] CATARACT W/ IMPLANT (ECCE IOL) Bilateral 2017 [facility] TREATMENT OPEN PATELLAR FX W/ INTERNAL [...] Take 500 mg by mouth daily. Biotin 98182 MCG Tab take 2 tablets by mouth 2 times daily.. Calcium Carb-Cholecalciferol (CALCIUM 600 + D) 600-200 MG-UNIT Tab tablet Take 2.5 tablets by mouthDaily (with lunch). Diclofenac Sodium 1 % Gel gel Diclofenac Diclofenac Sodium Active 4 GM Topical Four times daily October 01, 2020 10:38am 10-01-2020 [facility] ([id number]) ferrous sulfate 325 (65 Fe) MG Tab [...] by mouth daily., Disp: , Rfl: Biotin 02585 MCG Tab, take 2 tablets by mouth 2 times daily.. , Disp: , Rfl: Calcium Carb-Cholecalciferol (CALCIUM 600 + D) 600-200 MG-UNIT Tab tablet, Take 2.5 tablets by mouth Daily (with lunch). , Disp: , Rfl: Diclofenac Sodium 1 % Gel gel, Diclofenac Diclofenac Sodium Active 4 GM Topical Four times daily October 01, 2020 10:38am 10-01-2020 [facility] ([id number]), Disp: , Rfl: ferrous sulfate 325 (65 [...] have reviewed the findings of the clinical direct support staff and agree with their assessment. New Mcclure MD Ortho Nurse Established Patient Intake Room#: 3 6 week F/U left knee ext mechanism repair, no C/O pain Date: 01/03/2019 3:26 PM Patient: Danyelle Haskins MR#: [id number] : 1955 Age: 63 y.o. Referring Physician: [...] CATARACT W/ IMPLANT (ECCE IOL) Bilateral 2018 [facility] TREATMENT OPEN PATELLAR FX W/ INTERNAL [...] mouth 3 times daily as needed. Biotin 75127 MCG Tab take 2 tablets by mouth [...] as needed. , Disp: , Rfl: Biotin 13892 MCG Tab, take 2 tablets by mouth [...] 01/03/2019 3:26 PM Patient: Danyelle Haskins MR#: [id number] : 1955 Age: 63 y.o. Referring Physician: [...] CATARACT W/ IMPLANT (ECCE IOL) Bilateral 2018 [facility] TREATMENT OPEN PATELLAR FX W/ INTERNAL [...] mouth 3 times daily as needed. Biotin 61347 MCG Tab take 2 tablets by mouth [...] as needed. , Disp: , Rfl: Biotin 73841 MCG Tab, take 2 tablets by mouth [...] left- Primary Hospital Course * Tanvi Hernandez, SERVICE OPERATOR - 11/24/2018 11:21 AM EST Formatting of this note may be different from the original. Discharge Summary Name: Danyelle Haskins Age: 63 y.o. Birthday: 1955 Admit Date: 11/21/2018 8:19 AM Discharge Date: 11/24/2018 Brief Summary of Hospital Course: Pain in left knee S/p left TKA POD#3 PT OT social services manager discharge planning DVT prophylaxis Lori Will dc to SNF for additional therapy [...] % LIQD Commonly known as: HIBICLENS hydroxychloroquine ([facility]-15998) 200 MG TABS leflunomide 20 MG TABS [...] as needed. Commonly known as: LIORESAL Biotin 22300 MCG TABS take 2 tablets by mouth [...] tolerated. Discharge Follow-up: New Mcclure MD [address] [id number] In 3 weeks Discharge Disposition: Patient will be discharged in stable condition. Discharge Time: Including assessment, planning, and medication reconciliation was greater than 35 min. Tanvi Hernandez DNP completing Discharge Summary for Dr. Vance Please note Portions of this note utilized Vysr dictation software, please excuse any typographical or grammatical errors. Associated attestation - Arlyn Vance, - 11/24/2018 4:16 PM EST Patient seen [...] be removed by a nurse at the [facility] 10-14 days after surgery. Your surgery d [...] - 11/24/2018 5:16 PM EST Contact Office ([phone]) if: > Total Knee ROM < 90 [...] Care Everywhere. * Acetaminophen tablets or caplets (Syrian) * Apixaban oral tablets (Syrian) * Docusate capsules (Syrian) * Oxycodone tablets or capsules (Syrian) in this encounter Additional Source Comments INFORMATION SOURCE (unrecogn ized section and content) DATE CREATED AUTHOR 05/02/2018 [place] DATE CREATED AUTHOR AUTHOR'S ORGANIZ ATION 05/02/2018 [facility] DATE CREATED AUTHOR AUTHOR'S ORGANIZ ATION 05/05/2018 [facility] DATE CREATED AUTHOR AUTHOR'S ORGANIZ ATION 03/22/2020 [facility] DATE CREATED AUTHOR AUTHOR'S ORGANIZ ATION 02/01/2022 [facility] DATE CREATED AUTHOR AUTHOR'S ORGANIZ ATION 02/13/2023 [facility] DATE CREATED AUTHOR AUTHOR'S ORGANIZ ATION 07/09/2023 [facility] DATE CREATED AUTHOR AUTHOR'S ORGANIZ ATION 04/27/2024 [facility] DATE CREATED AUTHOR AUTHOR'S ORGANIZ ATION 10/18/2024 [facility] EPIC Reason for Visit (unrecogniz ed section and content) Reason Comments Preoperative Nurse Assessment Surgery sc heduled 11/21/18 Status Reason Specialty Diagnoses / Procedures Referre d By Contact Referred To Contact Diagnoses 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] New Mcclure MD [address] [place], [place] [phone] Status Reason Specialty Diagnoses / Procedures Referred By Contact Referred To Contact New Request Diagnoses Hx of total knee arthroplasty, left Procedures XR KNEE LEFT 2 VIEWS XR KNEE LEFT 3 VIEWS Rajinder Mora, TIMBER HARVESTER OPERATOR-SERVICE OPERATOR [address] [place], [place] [phone] Reason Comments Post Op Visit Reason Comments Leg Swelling Reason Comments Follow-up Post Op Visit Status Reason Specialty Diagnoses / Procedures Referred By Contact Referred To Contact New Request Diagnoses Left knee pain, unspecified chronicity Procedures XR KNEE LEFT 2 VIEWS XR KNEE LEFT 3 VIEWS New Mcclure MD [address] [place], [place] [id number] Reason Comments Follow-up Status Reason Specialty Diagnoses / Procedures Referred By Contact Referred To Contact Pending Review Diagnoses History of total knee arthroplasty, left Procedures XR KNEE LEFT 3 VIEWS New Mcclure MD [address] [place], [place] [id number] Reason Comments Post Op Visit Reason Comments Follow-up Reason Comments Skin Problem Status Reason Specialty Diagnoses / Procedures Referred By Contact Referred To Contact New Request Diagnoses Hx of total knee arthroplasty, left Procedures XR KNEE LEFT 3 VIEWS New Mcclure MD [address] [place], [place] [phone] Status Reason Specialty Diagnoses / Procedures Referred By Contact Referred To Contact New Request Diagnoses Right hip pain Procedures XR HIP WITH PELVIS RIGHT New Mcclure MD [address] [place], [place] [phone] Reason Comments Follow-up Specialty Diagnoses / Procedures Referred By Contac t Referred To Contact Diagnoses Hx of total knee arthroplasty, right Procedures XR KNEE RIGHT 3 VIEWS Rajinder Mora, TIMBER HARVESTER OPERATOR-SERVICE OPERATOR [address] [place], [place] [phone] Referral ID Status Reason Start Date Expiration Date V isits Requested Visits Authorized [id number] New Request 05/11/2023 06/04/2024 1 1 Specialty Diagnoses / Procedures Referred By Contac t Referred To Contact Diagnoses Hx of total knee arthroplasty, right Procedures XR BONE LENGTH STUDY New Mcclure MD [address] [place] [address] Referral ID Status Reason Start Date Expiration Date V isits Requested Visits Authorized [id number] New Request 08/30/2023 09/23/2024 1 1 Reason Comments Pain Reason Comments Preoperative Assessment LTKA revision w/ poss extensor mechanism reconstruction 11/29 SAF Pg *PAT ONLY Specialty Diagnoses / Procedures Referred By Contac t Referred To Contact Diagnoses Preop testing Procedures PREPARE TO TRANSFUSE RED BLOOD CELLS New Mcclure MD [address] [place] [address] Referral ID Status Reason Start Date Expiration Date V isits Requested Visits Authorized [id number] New Request 11/01/2023 11/25/2024 1 1 Specialty Diagnoses / Procedures Referred By Contac t Referred To Contact Diagnoses Hx of total knee arthroplasty, left Procedures XR KNEE LEFT 1-2 VIEWS XR KNEE LEFT 3 VIEWS Rajinder Mora, TIMBER HARVESTER OPERATOR-SERVICE OPERATOR [address] [place] [address] Referral ID Status Reason Start Date Expiration Date V isits Requested Visits Authorized [id number] New Request 12/20/2023 01/13/2025 1 1 Specialty Diagnoses / Procedures Referred By Contac t Referred To Contact Diagnoses Right knee pain, unspecified chronicity Procedures XR KNEE RIGHT 3 VIEWS New Mcclure MD [address] [place] [address] Referral ID Status Reason Start Date Expiration Date V isits Requested Visits Authorized [id number] New Request 01/09/2024 02/02/2025 1 1 Reason Comments Pain Specialty Diagnoses / Procedures Referred By Contac t Referred To Contact Diagnoses Hx of total knee arthroplasty, left Procedures XR BONE LENGTH STUDY Rajinder Mora, TIMBER HARVESTER OPERATOR-SERVICE OPERATOR [address] [place] [address] Referral ID Status Reason Start Date Expiration Date V isits Requested Visits Authorized [id number] New Request 02/21/2024 03/17/2025 1 1 Reason Comments Follow-up Reason Comments Follow-up 14d s/p I&d Reason Comments Toenail Care Non Dm Nails Reason Comments Back Pain Numbness Care Teams (unrecognized sec tion and content) Pattern Chain Maker Supervisor Relationship Specialty Start Date End Date Yulisa Batres MD [address] [facility] [place] [address] [place] [address] PCP - General Family Medicine 03/18/23 Pattern Chain Maker Supervisor Relationship Specialty Start Date End Date Yulisa Batres MD [address] [facility] [place] [place] [address] [place] [address] PCP - General Family Medicine 03/18/23 Pattern Chain Maker Supervisor Relationship Specialty Start Date End Date Yulisa Batres MD [address] [facility] [place] [place] [address] [place] [address] PCP - General Family Medicine 03/18/23 Pattern Chain Maker Supervisor Relationship Specialty Start Date End Date Yulisa Batres MD [address] [facility] [place] [place] [address] [place] [address] PCP - General Family Medicine 03/18/23 Pattern Chain Maker Supervisor Relationship Specialty Start Date End Date Yulisa Batres MD [address] [facility] [place] [address] PCP - General Family Medicine 03/18/23 Pattern Chain Maker Supervisor Relationship Specialty Start Date End Date Yulisa Batres MD [address] [facility] [place] [address] PCP - General Family Medicine 03/18/23 Pattern Chain Maker Supervisor Relationship Specialty Start Date End Date Yulisa Batres MD [address] [facility] [place] [address] PCP - General Family Medicine 03/18/23 Pattern Chain Maker Supervisor Relationship Specialty Start Date End Date Yulisa Batres MD [address] [facility] [address] PCP - General Family Medicine 03/18/23 Pattern Chain Maker Supervisor Relationship Specialty Start Date End Date Yulisa Batres MD [address] [facility] [place] [address] PCP - General Family Medicine 03/18/23 Pattern Chain Maker Supervisor Relationship Specialty Start Date End Date Yulisa Batres MD [address] [place] [facility] [place] [address] PCP - General Family Medicine 03/18/23 Pattern Chain Maker Supervisor Relationship Specialty Start Date End Date Yulisa Batres MD [address] [facility] [place] [address] PCP - General Family Medicine 03/18/23 Pattern Chain Maker Supervisor Relationship Specialty Start Date End Date Yulisa Batres MD [address] [facility] [place] [address] PCP - General Family Medicine 03/18/23 Pattern Chain Maker Supervisor Relationship Specialty Start Date End Date Yulisa Batres MD [address] [facility] [place] [address] PCP - General Family Medicine 03/18/23 Pattern Chain Maker Supervisor Relationship Specialty Start Date End Date Yulisa Batres MD [address] [facility] [place] [address] PCP - General Family Medicine 03/18/23 Pattern Chain Maker Supervisor Relationship Specialty Start Date End Date Yulisa Batres MD [address] [facility] [address] [place] [address] PCP - General 07/06/23 Gaby Christianson NP [address] [phone] Nurse Practitioner Neurology 01/26/24 Darren Monaco MD [address] [place] [address] Referring Physician Rheumatology 07/31/24 Pattern Chain Maker Supervisor Relationship Specialty Start Date End Date Yulisa Batres MD [address] [place] [address] PCP - General 07/06/23 Gaby Christianson NP [address] [phone] Nurse Practitioner Neurology 01/26/24 Darren Monaco MD [address] [place] [address] Referring Physician Rheumatology 07/31/24 Pattern Chain Maker Supervisor Relationship Specialty Start Date End Date Yulisa Batres MD [address] [place] [address] PCP - General 07/06/23 Gaby Christianson NP [address] [address] Nurse Practitioner Neurology 01/26/24 Darren Monaco MD [address] [place] [address] Referring Physician Rheumatology 07/31/24 Pattern Chain Maker Supervisor Relationship Specialty Start Date End Date Hoy, Yulisa M, MD [address] [facility] [place] [address] PCP - General 07/06/23 Gaby Christianson NP [address] [place] [phone] Nurse Practitioner Neurology 01/26/24 Pattern Chain Maker Supervisor Relationship Specialty Start Date End Date Yulisa Batres MD [address] [facility] [place] [address] PCP - General 07/06/23 Gaby Christianson NP [facility] [address] [place] [address] Nurse Practitioner Neurology 01/26/24 Pattern Chain Maker Supervisor Relationship Specialty Start Date End Date Yulisa Batres MD [address] [place] [facility] [place] [address] PCP - General 07/06/23 Gaby Christianson NP [facility] [address] [place] [address] Nurse Practitioner Neurology 01/26/24 Darren Monaco MD [address] [facility] Professional building [address] [place] [phone] Referring Physician Rheumatology 07/31/24 Pattern Chain Maker Supervisor Relationship Specialty Start Date End Date Yulisa Batres MD [address] [place] [facility] [place] [address] PCP - General 07/06/23 Gaby Christianson NP [address] [place] [phone] Nurse Practitioner Neurology 01/26/24 Darren Monaco MD [address] [facility] Professional building [address] [place] [phone] Referring Physician Rheumatology 07/31/24 Goals (unrecognized section [...] BE BASED ON THE PRIMARY CLINICAL RECORDS. [email or web address] [facility]. provides no warranty or guarantee of the accuracy or completeness of information in this document.
[2024-10-23 12:11] LABS: Basophils Percent Auto 0.6 % (0.2-2.0); Eosinophils Absolute Auto 0.1 10^3/uL (0.0-0.7); Eosinophils Percent Auto 1.5 % (0.9-7.0); Hematocrit 37.2 % (36.0-48.0); Hemoglobin 11.8 g/dL (12.0-16.0); Immature Granulocytes Abs Auto 0.01 10^3/uL (0.00-0.03); Immature Granulocytes Pct Auto 0.3 % (0.0-0.5); Lymphocytes Absolute Auto 0.6 10^3/uL (1.2-3.8); Lymphocytes Percent Auto 17.4 % (20.5-60.0); Mean Corpuscular HGB Conc 31.7 g/dL (29.9-35.2); Mean Corpuscular Hemoglobin 33.1 pg (26.7-34.0); Mean Corpuscular Volume 104.5 fL (81.0-99.0); Mean Platelet Volume 8.9 fL (9.5-13.5); Monocytes Absolute Auto 0.3 10^3/uL (0.3-0.8); Monocytes Percent Auto 9.7 % (1.7-12.0); Neutrophils Absolute Auto 2.4 10^3/uL (1.4-6.5); Neutrophils Percent Auto 70.5 % (43.0-75.0); Platelet Count 176 10^3/uL (150-450); Red Blood Count 3.56 10^6/uL (4.20-5.40); Red Cell Distribution Width 14.5 % (11.0-15.0); White Blood Count 3.4 10^3/uL (4.0-11.0)
[2024-10-23 12:15] LABS: Bilirubin Urine NEGATIVE (NEGATIVE); Blood Urine NEGATIVE (NEGATIVE); Clarity Urine CLEAR (CLEAR); Color Urine LT. YELLOW (YELLOW); Glucose Urine UA NEGATIVE (NEGATIVE); Ketones Urine NEGATIVE (NEGATIVE); Leukocyte Esterase Urine NEGATIVE (NEGATIVE); Nitrite Urine NEGATIVE (NEGATIVE); Protein Urine NEGATIVE (NEG/TRACE); Urobilinogen Urine 0.2 EU/dL (0.2-1.0)
[2024-10-23 12:20] LABS: Erythrocyte Sedimentation Rate 10 mm/hr (<=30)
[2024-10-23 12:22] LABS: Bacteria Urine NONE SEEN #/HPF (NONE SEEN); Cast Seen? NONE SEEN #/LPF (NONE SEEN); Crystals Seen? None Seen #/HPF (None Seen); Mucus Urine NONE SEEN (NONE SEEN); RBC Urine 0-2 #/HPF (0-2); Squamous Epithelial Cell Urine RARE #/LPF (NONE/RARE); WBC Urine 0-2 #/HPF (NONE SEEN)
[2024-10-23 12:28] LABS: Alanine Aminotransferase 32 U/L (14-59); Albumin Globulin Ratio 1.2; Albumin Level 3.8 g/dL (3.4-5.0); Alkaline Phosphatase 69 U/L (46-116); Anion Gap 11.5; Aspartate Amino Transferase 35 U/L (15-37); BUN Creatinine Ratio 19.5; Bilirubin Total 1.1 mg/dL (0.2-1.0); Calcium 9.4 mg/dL (8.5-10.1); Carbon Dioxide 30.4 mmol/L (21.0-32.0); Chloride 105 mmol/L (98-107); Estimated GFR (African America >60 (>=60 mL/min/1.73m^2); Estimated GFR (Non-African Ame >60 (>=60 mL/min/1.73m^2); Globulin 3.1 g/dL; Glucose 90 mg/dL (74-106); Potassium 3.9 mmol/L (3.5-5.1); Sodium 143 mmol/L (136-145); Total Protein 6.9 g/dL (6.4-8.2)
[2024-10-24 13:07] LABS: Complement C3, Serum 135 mg/dL (82-167); Complement C4, Serum 30 mg/dL (12-38)
[2024-10-24 15:07] LABS: Complement, Total (CH50) >60 U/mL (>41)
== END 2024-10-23 11:48 | disposition home or self-care (01) ==
LOC: LAB 11:48
PROVIDERS: PCP Family Medicine; Visit Provider Registered Nurse
DX: M06.4 Inflammatory polyarthropathy (principal); M15.0 Primary generalized (osteo)arthritis; Z79.899 Other long term (current) drug therapy
CPT/HCPCS: 36415; 80053; 81001; 85025; 85652; 86160; 86162

== ENCOUNTER 2024-12-03 08:58 | Outpatient (RCR) | payer MEDICARE, BC, SELFPAY | END 2025-01-23 07:32 | disposition home or self-care (01) | LOC: PT 08:58 | PROVIDERS: PCP Family Medicine | DX: Z96.653 Presence of artificial knee joint, bilateral (principal); R26.89 Other abnormalities of gait and mobility | CPT/HCPCS: 97110; 97112; 97161; 97530 ==

== ENCOUNTER 2024-12-19 09:55 | Outpatient (OUT) | payer MEDICARE, BC, SELFPAY ==
--- NOTE | 2024-12-19 09:58 | XR_ITS ---
[address] [address] Patient Name: YELENA HASKINS MRN: [id number] date: 1955 Sex: F Assigned Patient Location: [facility] Current Patient Location: Accession/Order Number: [id number] Exam Date: 12/19/2024 10:01 Report Date: 12/20/2024 08:03 At the request of: DARREN MONACO Procedure: XR DEXA axial skeleton EXAMINATION: XR DEXA axial skeleton HISTORY: Age Related Osteoporosis COMPARISON: DEXA bone densitometry 08/27/2022 TECHNIQUE: Dual-energy X-ray absorptiometry (DXA) was performed. FINDINGS: FOREARM ANALYSIS: Average bone mineral density is 0.542 g/cm2. T-score (standard deviation relative to young adult mean): -2.4 . -9.6% change since prior study. HIP ANALYSIS: Bone mineral density within the left femoral neck, is 0.872 g/cm2. T-score (standard deviation relative to young adult mean): -1.2 . +0.3% change since prior study. XR/XR DEXA axial skeleton IMPRESSION: World Health Organization Classification: Osteopenia - Moderate Fracture Risk FRAX: Cannot be calculated. Pharmacologic treatment recommendations * No uniform recommendation applies to all patients. Management plans must be individualized. * Consider initiating pharmacologic treatment in postmenopausal women and men >= 50 years of age who have the following: Primary fracture prevention: * T-score <= - 2.5 at the femoral neck, total hip, lumbar spine, 33% radius (some uncertainty with existing data) by DXA. * Low bone mass (osteopenia: T-score between - 1.0 and - 2.5) at the femoral neck or total hip by DXA with a 10-year hip fracture risk >= 3% or a 10-year major osteoporosis-related fracture risk >= 20% (i.e., clinical vertebral, hip, forearm, or proximal humerus) based on the US-adapted FRAXregistered model. Secondary fracture prevention: * Fracture of the hip or vertebra regardless of BMD [4, 5]. * Fracture of proximal humerus, pelvis, or distal forearm in persons with low bone mass (osteopenia: T-score between - 1.0 and - 2.5). The decision to treat should be individualized in persons with a fracture of the proximal humerus, pelvis, or distal forearm who do not have osteopenia or low BMD [12, 13]. Osmin MS, Ema SL, Zelalem KL, Juana EM, Jacinto KG, AJ, Fredrick ES. The clinician's guide to prevention and treatment of osteoporosis. Osteoporos Int. 2021;33(10):3096-0867. doi: 10.1007/a12751-150-13874-t. Epub 2021Mar 04. Erratum in: Osteoporos Int. 2021Jun 03;: PMID: [id number]; PMCID: [id number]. Electronically authenticated by: CHARO MAY Date: 12/20/2024 08:03
== END 2024-12-19 09:56 | disposition home or self-care (01) ==
LOC: RAD 09:55
PROVIDERS: PCP Family Medicine; Visit Provider Internal Medicine Rheumatology
DX: M81.0 Age-related osteoporosis without current pathological fracture (principal); M85.80 Other specified disorders of bone density and structure, unspecified site
CPT/HCPCS: 77080

== ENCOUNTER 2025-01-28 11:12 | Outpatient (OUT) | payer MEDICARE, BC, SELFPAY ==
[2025-01-28 12:03] LABS: Hematocrit 36.8 % (36.0-48.0); Hemoglobin 11.8 g/dL (12.0-16.0); Mean Corpuscular HGB Conc 32.1 g/dL (29.9-35.2); Mean Corpuscular Hemoglobin 33.7 pg (26.7-34.0); Mean Corpuscular Volume 105.1 fL (81.0-99.0); Mean Platelet Volume 8.8 fL (9.5-13.5); Platelet Count 179 10^3/uL (150-450); Red Cell Distribution Width 13.6 % (11.0-15.0); White Blood Count 4.1 10^3/uL (4.0-11.0)
[2025-01-28 12:25] LABS: Erythrocyte Sedimentation Rate 11 mm/hr (<=30)
[2025-01-28 12:43] LABS: Basophils Abs Manual 0.04 10^3/uL (0.00-0.10); Eosinophils Absolute Manual 0.08 10^3/uL (0.00-0.70); Lymphocytes Absolute Manual 0.53 10^3/uL (1.20-3.80); Monocytes Absolute Manual 0.36 10^3/uL (0.30-0.80); Segmented Neut Absolute Manual 3.07 10^3/uL (1.4-6.5)
[2025-01-28 12:44] LABS: Macrocytosis 3+
[2025-01-28 12:51] LABS: Bilirubin Urine NEGATIVE (NEGATIVE); Blood Urine NEGATIVE (NEGATIVE); Clarity Urine CLEAR (CLEAR); Color Urine LT. YELLOW (YELLOW); Glucose Urine UA NEGATIVE (NEGATIVE); Ketones Urine NEGATIVE (NEGATIVE); Leukocyte Esterase Urine NEGATIVE (NEGATIVE); Nitrite Urine NEGATIVE (NEGATIVE); Protein Urine NEGATIVE (NEG/TRACE); Specific Gravity Urine 1.015 (1.005-1.025); Urobilinogen Urine 0.2 EU/dL (0.2-1.0)
[2025-01-28 12:56] LABS: Alanine Aminotransferase 37 U/L (14-59); Albumin Globulin Ratio 1.1; Albumin Level 3.6 g/dL (3.4-5.0); Alkaline Phosphatase 60 U/L (46-116); Anion Gap 12.5; Aspartate Amino Transferase 36 U/L (15-37); BUN Creatinine Ratio 16.5; Calcium 9.5 mg/dL (8.5-10.1); Chloride 103 mmol/L (98-107); Estimated GFR (African America >60 (>=60 mL/min/1.73m^2); Estimated GFR (Non-African Ame >60 (>=60 mL/min/1.73m^2); Globulin 3.3 g/dL; Glucose 98 mg/dL (74-106); Potassium 4.5 mmol/L (3.5-5.1); Sodium 140 mmol/L (136-145); Total Protein 6.9 g/dL (6.4-8.2)
[2025-01-28 12:56] LABS: Bacteria Urine TRACE #/HPF (NONE SEEN); Cast Seen? NONE SEEN #/LPF (NONE SEEN); Crystals Seen? None Seen #/HPF (None Seen); Mucus Urine TRACE (NONE SEEN); RBC Urine 0-2 #/HPF (0-2); Squamous Epithelial Cell Urine RARE #/LPF (NONE/RARE); WBC Urine NONE SEEN #/HPF (NONE SEEN)
[2025-01-29 04:08] LABS: Complement C3, Serum 138 mg/dL (82-167); Complement C4, Serum 28 mg/dL (12-38)
[2025-01-29 16:12] LABS: Complement, Total (CH50) >60 U/mL (>41)
== END 2025-01-28 11:13 | disposition home or self-care (01) ==
LOC: LAB 11:14
PROVIDERS: PCP Family Medicine; Visit Provider Internal Medicine Rheumatology
DX: M06.4 Inflammatory polyarthropathy (principal); M15.0 Primary generalized (osteo)arthritis; Z79.899 Other long term (current) drug therapy
CPT/HCPCS: 36415; 80053; 81001; 85007; 85027; 85652; 86160; 86162

== ENCOUNTER 2025-02-28 12:28 | Outpatient (OUT) | payer MEDICARE, BC, SELFPAY ==
--- NOTE | 2025-02-28 12:34 | XR_ITS ---
[address] [id number] Patient Name: YELENA HASKINS MRN: [id number] date: 1955 Sex: F Assigned Patient Location: [facility] Current Patient Location: [facility] Accession/Order Number: [id number] Exam Date: 02/28/2025 13:55 Report Date: 02/28/2025 13:56 At the request of: TANVI LUNSFORD NP Procedure: XR elbow LT min 3V LEFT ELBOW - 3 views CLINICAL HISTORY: Chronic left medial elbow pain for 3 months COMPARISON: None FINDINGS: Bones are grossly demineralized. No acute bony process. Minimal olecranon spurring. No joint effusion. XR/XR elbow LT min 3V IMPRESSION: MINIMAL DEGENERATIVE CHANGE WITHOUT ACUTE BONY PROCESS. Impression dictated by: Clem Castellanos Jr., DGwenOGwen02/28/2025 1:56 PM Dictation Location: [address] [address] Electronically authenticated by: [id number] Y Date: 02/28/2025 13:56
== END 2025-02-28 12:29 | disposition home or self-care (01) ==
LOC: RAD 12:29
PROVIDERS: PCP Family Medicine; Visit Provider Registered Nurse
DX: M25.522 Pain in left elbow (principal)
CPT/HCPCS: 73080

== ENCOUNTER 2025-05-07 09:41 | Outpatient (OUT) | payer MEDICARE, BC, SELFPAY ==
--- NOTE | 2025-05-07 09:44 | MR_ITS ---
[address] [address] Patient Name: YELENA HASKINS MRN: [id number] date: 1955 Sex: F Assigned Patient Location: MRI Current Patient Location: MRI Accession/Order Number: [id number] Exam Date: 05/07/2025 15:04 Report Date: 05/07/2025 15:10 At the request of: ADDIS PALMER NP Procedure: MR lumbar spine wo con EXAMINATION: MRI LUMBAR SPINE WITHOUT IV CONTRAST CLINICAL HISTORY: Chronic low back pain with radiculopathy. COMPARISON: None TECHNIQUE: Multiecho imaging was performed in the sagittal and axial planes without contrast administration. FINDINGS: Posterior hardware fixation L2-L5 with associated blooming artifact limiting evaluation. Vertebral body heights appear maintained. No bone marrow edema. Spinal cord terminates in normal position without abnormal cord signal. No paraspinal mass. Visualized retroperitoneum demonstrates no acute findings. At L1-L2: Diffuse broad-based disc bulge is present with ligamentum flavum hypertrophy and facet joint degenerative changes causing severe canal and bilateral neural foraminal stenosis. At L2-L3: Postoperative change. No canal stenosis. At L3-L4: Postoperative changes. No canal stenosis. At L4-L5: Postoperative change. No canal stenosis. At L5-S1: Diffuse broad-based disc bulge is present with disc desiccation. Facet joint degenerative changes. Findings are causing mild canal and severe bilateral neural foraminal stenosis. MR/MR lumbar spine wo con IMPRESSION: Degenerative disc disease as described above worst at L1-L2. Impression dictated by: Clem Castellanos Jr., DNeetu 05/07/2025 3:10 PM Dictation Location: [place] [address] Electronically authenticated by: [id number] Y Date: 05/07/2025 15:10
== END 2025-05-07 09:42 | disposition home or self-care (01) ==
LOC: MRI 09:41
PROVIDERS: PCP Family Medicine; Visit Provider Nurse Practitioner Family
DX: M47.816 Spondylosis without myelopathy or radiculopathy, lumbar region (principal); M51.369 Other intervertebral disc degeneration, lumbar region without mention of lumbar back pain or lower extremity pain; M48.061 Spinal stenosis, lumbar region without neurogenic claudication
CPT/HCPCS: 72148

== ENCOUNTER 2025-05-23 10:28 | Outpatient (OUT) | payer MEDICARE, BC, SELFPAY ==
--- OUTSIDE RECORDS SUMMARY | 2025-05-15 09:00 | XMS_ITS | Encounter Summary ---
Author Organization [facility] Address [address] [facility] [place] [address] Care Team Providers Care Canvas Goods Supervisor Name Role Phone Stevie Hoyos MD Primary Care Provider [phone] Gaby Christianson NP Unavailable Unavailable eClso Delatorre MD Unavailable [phone] Reason for Visit * Reason Comments Macular Degeneration Encounter Details Date Type Department Care Team (Latest Contact Info) Description 05/15/2025 9:00 AM EDT Office Visit [facility] [address] [place] [address] Yo Gilmore, DO [address] [place] [address] Intermediate stage nonexudative age-related macular degeneration of both eyes (Primary Dx); Long-term use of hydroxychloroquine Social History Tobacco Use Types Packs/Day Years Used Date Smoking Tobacco: Never Smokeless Tobacco: Never Tobacco Cessation:Counseling Given: Not Answered Alcohol Use Standard Drinks/Week Comments Defer 0 (1 standard drink = 0.6 oz pur e alcohol) Caffeine: Current some days Comments Unknown Sex and Gender Information Value Date Recorded Sex Assigned at Female 03/30/2023 3:52 PM EDT Legal Sex Female 8:32 PM EDT Gender Identity Female 03/30/2023 3:52 PM EDT Sexual Orientation Straight 03/30/2023 3: 52 PM EDT documented as of this encounter Progress Notes * Yo Gilmore DO - 05/15/2025 9:00 AM EDT Images from the original note were not included. Subjective Patient ID: Danyelle Chris is a 69 y.o. female. Chief Complaint Macular Degeneration HPI Macular Degeneration In both eyes. Characterized as blurry vision. Comments Pt here for 9 month FU with AJITH, OCT Mac, and Watson visual field (HVF) 10-2 for management of age-related macular degeneration (ARMD) both eyes (OU), PCO both eyes (OU), Hemifacial Spasm, dry eye both eyes (OU), blepharitis both eyes (OU). Using OTC drops PRN in both eyes (OU). Pt states that her left eye (OS) is starting to get a film over it and appearing blurry. When patient uses the rewetting drops on the right eye (OD) the drop does not dissipate at all and stays in her eye and makes her vision all watery appearing. Pt states left eye (OS) has become more cloudy, constant. Since last exam. Gradual worsening Last edited by Yo Gilmore DO on 05/15/2025 10:02 AM. No current outpatient medications on file. (Ophthalmic Agents) No current facility-administered medications for this visit. (Ophthalmic Agents) Current Outpatient Medications (Other) Medication Sig Dispense Refill acetaminophen (Tylenol 8 Hour) 650 MG ER tablet Take 1-2 tablets by mouth 2 (two) times a day as needed for mild pain or moderate pain Do not crush, chew, or split. ascorbic acid (Vitamin C) 500 MG tablet Take 1,000 mg by mouth in the morning. biotin 1 MG capsule Take 2 mg by mouth in the morning. Calcium Carb-Cholecalciferol (Oyster Shell Calcium w/D) 500-5 MG-MCG tablet Take by mouth Daily carvedilol (Coreg) 25 MG tablet Take 25 mg by mouth in the morning and 25 mg in the evening. Take with meals. diclofenac sodium 1 % gel External for 19 Days doxazosin (Cardura) 4 MG tablet Take 4 mg by mouth 1 (one) time each day at the same time folic acid (Folvite) 1 MG tablet Take 1,000 mcg by mouth in the morning. Rteuxcnkmps-Elgduvhmx-Sdm C-Mn (Glucosamine 1500 Complex) capsule as directed Orally hydroxychloroquine (Plaquenil) 200 MG tablet Take 200 mg by mouth in the morning and 200 mg before bedtime. ibandronate (Boniva) 150 MG tablet Take 150 mg by mouth every 30 (thirty) days leflunomide (Arava) 20 MG tablet Take 20 mg by mouth Daily lisinopril 40 MG tablet Take 40 mg by mouth in the morning. methotrexate 2.5 MG tablet Take 12.5 mg by mouth 1 (one) time per week. methylPREDNISolone (Medrol Dospak) 4 MG tablets TAKE DIRECTED (Patient not taking: Reported on 12/24/2024) Multiple Vitamin (multivitamin) tablet Take 1 tablet by mouth Daily pantoprazole (ProtoNix) 40 MG EC tablet Take 40 mg by mouth in the morning. Take before meals. predniSONE (Deltasone) 5 MG tablet Take 5 mg by mouth As directed pregabalin (Lyrica) 25 MG capsule Take 1 capsule (25 mg) by mouth in the morning and 1 capsule (25 mg) before bedtime. Do not start before March 21, 2025. 60 capsule 2 tiZANidine (Zanaflex) 4 MG tablet Take 4 mg by mouth every 6 (six) hours if needed traMADol (Ultram) 50 MG tablet Take 50 mg by mouth 3 (three) times a day as needed for moderate pain or severe pain triamterene-hydrochlorothiazide (Maxzide-25) 37.5-25 MG tablet Take 1 tablet by mouth Daily Turmeric 500 MG capsule as directed Orally No current facility-administered medications for this visit. (Other) Past Medical History: Diagnosis Date Anemia Arthritis Backache Blepharospasm Callus Cataract Closed fracture of patella Degenerative disc disease, lumbar Difficulty walking Disturbance of skin sensation Dizziness Dry eyes Facet arthritis of lumbar region Facial weakness Fibromyalgia Hammer toe Hemifacial spasm History of transfusion Hypertension Insomnia Muscle spasm Numbness Osteopenia Peripheral neuropathy Plantar fasciitis Polyneuropathy PVD (peripheral vascular disease) Radiculopathy, lumbosacral region Shingles Small fiber neuropathy Spinal stenosis excluding cervical region lumbar region, without neurogenic claudication Spondylolisthesis Stress fracture Trigeminal neuralgia Allergies Allergen Reactions Gabapentin (Once-Daily) Other Reaction(s): [...] Other Reaction(s): Joint pain, Muscle weakness, Myalgia Review of Systems Constitutional: Negative. HENT: Negative. Eyes: Negative. Respiratory: Negative. Cardiovascular: Negative. Gastrointestinal: Negative. Genitourinary: Negative. Musculoskeletal: Negative. Skin: Negative. Neurological: Negative. Psychiatric/Behavioral: Negative. Hematological: Negative. Endocrine: Negative. Allergic/Immunologic: Negative. Objective Base Eye Exam Visual Acuity (Snellen - Linear) Right Left Dist cc 20/25 20/40 -2 Correction: Glasses Tonometry (Applanation, 10:04 AM) Right Left Pressure 18 18 Pupils Pupils Right PERRL Left PERRL Visual Smith Left Right Full Full Extraocular Movement Right Left Full Full Neuro/Psych Oriented x3: Yes Dilation Both eyes: 1.0% Mydriacyl @ 9:10 AM Slit Lamp and Fundus Exam External Exam Right Left External Brow ptosis, Rosacea, Rt facial palsy Brow ptosis, Rosacea Slit Lamp Exam Right Left Lids/Lashes Blepharitis, Dermatochalasis - upper lid, Ptosis Blepharitis, Dermatochalasis - upper lid, Ptosis Conjunctiva/Sclera White and quiet White and quiet Cornea Decreased tear film, 1+ SPK Decreased tear film, 1+ SPK Anterior Chamber Deep and quiet Deep and quiet Iris Round and reactive Round and reactive Lens Posterior chamber intraocular lens, 3+ Posterior capsular opacification Posterior chamber intraocular lens, 3+ Posterior capsular opacification Anterior Vitreous Normal Normal Fundus Exam Right Left Disc Tilted cup Tilted cup Macula Hard drusen Hard drusen Vessels Normal Normal Periphery Normal Normal Assessment/Plan Long-term use of hydroxychloroquine - A complete ophthalmic exam was performed including spectral-domain optical coherence tomography (SD-OCT) and Watson visual field (10-2). All were found to be within normal limits with no macular toxicity found. Continue with annual visits performing the above evaluations. This will be adjusted to [id number] when deemed necessary due to macular risk factors and/or length of time and dosage of medication taken. Intermediate stage nonexudative age-related macular degeneration of both eyes - ARMD OU, dry. Importance of smoking cessation, blood pressure control, and healthy diet were emphasized. Patient was advised to consider ultraviolet-B blocking sunglasses. In accordance with the AREDS study, appropriate antioxidant and mineral supplements were prescribed. Patient was instructed to self monitor their monocular vision (reading/Amsler Grid) at least weekly. Patient should immediately report any new onset of decreased vision or metamorphopsia. Dry eyes - Dry Eyes OU -- Environmental changes to minimize dryness and exposure and the use of artificial tears were recommended. Left posterior capsular opacification - PCO OU: (Posterior Capsule Opacification) Can be observed without intervention if PCO is not visually significant. Nd:YAG laser capsulotomy may be considered if impairment of vision rises to a level that dose not meet the patient's functional needs or interferes with activities of daily living. Risks, benefits and alternatives to the procedure will be reviewed. If the patient has undergone Nd:YAG laser capsulotomy, they are to notify their improvement director promptly if they have a significant change in symptoms, such as flashes of light (photopsia), an increase in floaters, loss of visual field or decrease in visual acuity. Blepharitis of upper and lower eyelids of both eyes, unspecified type - Blepharitis, posterior type OU - The patient exhibits inspissated meibomian glands. Warm compresses, lid massage and lid scrubs were recommended. documented in this encounter Plan of Treatment Upcoming Encounters Date Type Department Care Team (Late st Contact Info) Description 06/13/2025 9:50 AM EDT Procedure Visit [facility] [address] [facility] [address] [place] [address] Elie Tello DPM [address] [facility] [address] [place] [address] 02/19/2026 9:00 AM EDT Office Visit [facility] [address] [place] [address] Zahler, Yo D, DO [address] [place] [address] documented as of this encounter Procedures Procedure Name Priority Date/Time Associated Diagnosis Comments WATSON VISUAL FIELD - OU - BOTH EYES Routine 05/15/2025 10:05 AM EDT Long-term use of hydroxychloroquine OCT, RETINA - OU - BOTH EYES Routine 05/15/2025 10:02 AM EDT Intermediate stage nonexudative age-related macular degeneration of both eyes documented in this encounter Results * Watson Visual Field - OU - Both Eyes (05/15/2025 10:05 AM EDT) Anatomical Region Laterality Modality Head Visual Field Narrative 05/15/2025 10:05 AM EDT Right Eye Reliability was good. Progression has been stable. Foveal threshold was normal. Findings include normal observations. Left Eye Reliability was good. Progression has been stable. Foveal threshold was normal. Findings include normal observations. Yo Gilmore DO OPH VISUAL FIELD Final Re sult * OCT, Retina - OU - Both Eyes (05/15/2025 10:02 AM EDT) Anatomical Region Laterality Modality Head Optical Coherenc e Tomography Narrative 05/15/2025 10:02 AM EDT Right Eye Quality was good. Scan locations included subfoveal. Progression has been stable. Findings include normal observations. Left Eye Quality was poor. Scan locations included subfoveal. Progression has been stable. Findings include normal observations. Notes Good scan with normal appearance Yo Gilmore DO OPHTH TOMOGRAPHY Edited Res ult - Final documented in this encounter Visit Diagnoses Diagnosis Intermediate stage nonexudative age-related macular degeneration of both eyes- Primary Long-term use of hydroxychloroquine documented in this encounter Care Teams Canvas Goods Supervisor Relationship Specialty Start Date End Date Stevie Hoyos MD PCP - General 07/06/23 Gaby Christianson NP Nurse Practitioner Neurology 01/26/24 Celso Delatorre MD [address] [place] [address] Referring Physician Rheumatology 07/31/24 documented as of this encounter
--- OUTSIDE RECORDS SUMMARY | 2025-05-23 10:34 | XMS_ITS | Clinical Summary ---
Author Organization [facility] Address [address] [place] [address] Care Team Providers Care Recovery Assistant Name Role Phone BegumStephen Primary Care Provider [phone] Medications FOLBIC 2.5-25-2 mg tab 10/03/2016 Active fentaNYL (DURAGESIC) 12 mcg/hr pt72 09/12/2016 Active gabapentin (NEURONTIN) 100 mg capsule 2016 Active GRALISE 300 mg Tb24 10/05/2016 Active hydroxychloroqu ine (PLAQUENIL) 200 mg tablet 10/03/2016 Activ e Ibandronate 150 mg tablet 09/10/2016 Active leflunomide (ARAVA) 20 mg tablet 10/03/2016 Active methotrexate 2.5 mg tablet 10/03/2016 Activ e magnesium oxide (MAG-OX) 400 mg tablet 09/27/2016 Active oxyCODONE-aceta minophen (PERCOCET) 5-325 mg tablet 09/27/2016 Act damian predniSONE (DELTASONE) 10 mg tablet 09/27/2016 Active traMADol (ULTRAM) 50 mg tablet 08/06/[address] (PROTONIX) 40 mg tablet Take 40 mg by mouth once daily. Active hydroxychloroqu ine (PLAQUENIL) 200 mg tablet Take by mouth once daily. Active Ibandronate (BONIVA) 150 mg tablet Take 150 mg by mouth once every month. Active baclofen (LIORESAL) 10 mg tablet Take 10 mg by mouth three times daily. Active CALCIUM CARBONATE/VITAM IN D3 (CALCIUM + D ORAL) Take by mouth. Active acetaminophen (TYLENOL ARTHRITIS PAIN) 650 mg CR tablet Take 650 mg by mouth every 8 hours as needed. Active biotin 1,000 mcg chew Take by mouth. Active ascorbic acid, vitamin C, (VITAMIN C) 500 mg tablet Take 500 mg by mouth once daily. Active [place]-3 Fatty Acids-Vitamin E (FISH OIL) 1,000 mg cap Take 1 capsule by mouth. Active Social History Tobacco Use Types Packs/Day Years Used Date Smoking Tobacco: Never Assessed Comments Unknown Sex and Gender Information Value Date Recorded Sex Assigned at Not on file Legal Sex Female 2:47 PM EST Gender Identity Not on file Sexual Orientation Not on file Plan of Treatment Health Maintenance Due Date Last Done Comments Anxiety Screening 1971 Depression Screening 1971 Hepatitis C Screening 1971 DTaP,Tdap,Td Vaccine (1 - Tdap) [address] Colonography 1998 Cologuard (FIT-DNA) 1998 Colonoscopy 1998 Colorectal Cancer Screening 1998 Diabetes Screening 1998 Fecal Occult Blood 1998 Lipid Screening 1998 Sigmoidoscopy 1998 Pneumococcal Vaccine: 50+ (1 of 1 - PCV) 2003 Shingrix Vaccine (1 of 2) 2003 Bone Density Screening 2018 Covid-19 Vaccine ( - season) 2024 Advance Directive Discussion 11/07/2024 Influenza Vaccine (#1) 2025 RSV Vaccine (1 - 1-dose 75+ series) 2028 Care Teams Recovery Assistant Relationship Specialty Start Date End Date Stephen Begum DO PCP - General Family Medicine 09/22/16
--- OUTSIDE RECORDS SUMMARY | 2025-05-23 10:34 | XMS_ITS | Clinical Summary ---
Author Organization [facility] Address [address] [facility] [place] [address] Care Team Providers Care Middleware Architect Name Role Phone Unavailable Primary Care Provider Unavailabl e Social History Tobacco Use Types Packs/Day Years Used Date Smoking Tobacco: Never Assessed Comments Unknown Sex and Gender Information Value Date Recorded Sex Assigned at Not on file Legal Sex Female 3:51 PM EDT Gender Identity Not on file Sexual Orientation Not on file Plan of Treatment [place] [address] MEDICARE
--- OUTSIDE RECORDS SUMMARY | 2025-05-23 10:34 | XMS_ITS | Clinical Summary ---
Author Organization [facility] Address [address] [place] [address] Care Team Providers Care President/[employer] Experiences Name Role Phone Unavailable Primary Care Provider Unavailabl e Social History Tobacco Use Types Packs/Day Years Used Date Smoking Tobacco: Never Assessed Comments Unknown Sex and Gender Information Value Date Recorded Sex Assigned at Not on file Legal Sex Female 10:00 PM EDT Gender Identity Not on file Sexual Orientation Not on file Last Filed Vital Signs Vital Sign Reading Time Taken Comments Blood Pressure - - Pulse - - Temperature - - Respiratory Rate - - Oxygen Saturation - - Inhaled Oxygen Concentration - - Weight 98.9 kg (218 lb) 03/10/2020 1:17 PM EDT Height 172.7 cm (5' 8 ) 03/24/2020 10:45 AM EDT Body Mass Index 33.15 03/10/2020 1:17 PM EDT Plan of Treatment Not on file
--- OUTSIDE RECORDS SUMMARY | 2025-05-23 10:34 | XMS_ITS | Clinical Summary ---
Author Organization [facility] Address [address] [place] [address] Phone Care Team Providers Care Oyster Opener Name Role Phone Unavailable Primary Care Provider Unavailabl e Social History Tobacco Use Types Packs/Day Years Used Date Smoking Tobacco: Never Assessed Comments Unknown Sex and Gender Information Value Date Recorded Sex Assigned at Not on file Legal Sex Female 11:02 AM EST Gender Identity Not on file Sexual Orientation Not on file Plan of Treatment Not on file
--- OUTSIDE RECORDS SUMMARY | 2025-05-23 10:34 | XMS_ITS | Encounter Summary ---
Author Organization [facility] Address [address] [place] [address] Care Team Providers Care Copy Preparer Name Role Phone Stevie Hoyos MD Primary Care Provider [phone] Gaby Christianson NP Unavailable Unavailable Celso Delatorre MD Unavailable Encounter Details Date Type Department Care Team (Late st Contact Info) Description 05/15/2025 Bamboo flowsheet [facility] [address] [place] [address] Yo Gilmore DO [address] [place] [address] Social History Tobacco Use Types Packs/Day Years Used Date Smoking Tobacco: Never Smokeless Tobacco: Never Alcohol Use Standard Drinks/Week Comments Defer 0 (1 standard drink = 0.6 oz pur e alcohol) Caffeine: Current some days Comments Unknown Sex and Gender Information Value Date Recorded Sex Assigned at Female 03/30/2023 3:52 PM EDT Legal Sex Female 8:32 PM EDT Gender Identity Female 03/30/2023 3:52 PM EDT Sexual Orientation Straight 03/30/2023 3: 52 PM EDT documented as of this encounter Plan of Treatment Upcoming Encounters Date Type Department Care Team (Late st Contact Info) Description 06/13/2025 9:50 AM EDT Procedure Visit [facility] [address] [facility] [address] [place] [address] Elie Tello, DPKeri [address] [facility] 5 [place] [address] 02/19/2026 9:00 AM EDT Office Visit [facility] [address] [place] [address] Yo Gilmore, DO [address] [place] [address] documented as of this encounter Visit Diagnoses Not on filedocumented in this encounter Care Teams Copy Preparer Relationship Specialty Start Date End Date Stevie Hoyos MD PCP - General 07/06/23 Gaby Christianson NP Nurse Practitioner Neurology 01/26/24 Celso Delatorre MD [address] [facility] [address] [place] [id number] Referring Physician Rheumatology 07/31/24 documented as of this encounter
--- OUTSIDE RECORDS SUMMARY | 2025-05-23 10:34 | XMS_ITS | Encounter Summary ---
Author Organization [facility] Address [address] [place] [address] Care Team Providers Care Websphere Portal Architect Name Role Phone Stevie Hoyos MD Primary Care Provider [phone] Gaby Christianson NP Unavailable Unavailable Celso Delatorre MD Unavailable [phone] Reason for Visit * Reason Onset Date Comments Procedure 01/17/2025 Encounter Details Date Type Department Care Team ([facility] st Contact Info) Description 01/17/2025 Telephone [facility] [address] [facility] [address] [place] [address] Elie Tello, DPKeri [address] [facility] 5 [place] [address] Procedure Social History Tobacco Use Types Packs/Day Years [...] PM EDT documented as of this encounter Miscellaneous Notes * Telephone Encounter - Belia Rojas RN - 01/21/2025 10:15 AM EDT Patient's MEDICARE and medicare supplement are both active and do not require any prior authorizations. Case did not require any PST due to being LOCAL anesthesia. Surgery on epic and sis portals. Post-op appointment made. Demographics, insurance card, cureform, sx consents, h&p, and sx appointment sheet uploaded to SIS portal. Patient is aware of dates and times of appointments. * Telephone Encounter - Elie Tello DPM - 01/17/2025 10:40 AM EDT HOSPITAL--[facility] DATE-- local case near future PCP: Elie Tello DPM,[facility], local case DIAGNOSIS WITH PROCEDURES 1) left 3rd hammertoe with left 3rd PIPJ arthrodesis with K-wire [id number]/[id number] Approximate case length: 30 minutes SPECIAL NEEDS FOR CASE-- : K-wires PT CRUTCH OR WALKER TRAINING NEEDED? NO WEIGHT BEARING STATUS-- weight-bearing partial weight-bearing with postop shoe Patient already takes Ultram documented in this encounter Plan of Treatment Upcoming Encounters Date Type Department Care Team (Late st Contact Info) Description 06/13/2025 9:50 AM EDT Procedure Visit [facility] [address] [facility] [address] [place] [address] Elie Tello DPM [address] [facility] 5 [place] [address] 02/19/2026 9:00 AM EDT Office Visit [facility] [address] [place] [address] Yo Gilmore DO [address] [place] [address] documented as of this encounter Visit Diagnoses Not on filedocumented in this encounter Care Teams Websphere Portal Architect Relationship Specialty Start Date End Date Stevie Hoyos MD PCP - General 07/06/23 Gaby Christianson NP Nurse Practitioner Neurology 01/26/24 Celso Delatorre MD [address] [facility] [address] [address] Referring Physician Rheumatology 07/31/24 documented as of this encounter
--- OUTSIDE RECORDS SUMMARY | 2025-05-23 10:34 | XMS_ITS | Clinical Summary ---
Author Organization [facility] Address [address] [place] [address] Care Team Providers Care Marketing Research Analyst Name Role Phone Yulisa Hoyos MD Primary Care Provider [phone] Gaby Christianson NP Unavailable Unavailable Celso Delatorre MD Unavailable [phone] Allergies Active Allergy Reactions Criticality Noted Date Comments Alendronate Rash Medium 08/29/2018 Other Reaction(s): Abdominal Discomfort, Dyspepsia, Indigestion, Not available Gabapentin Nausea And Vomiting,Nausea Only,Rash Medium 08/30/2018 Other Reaction(s): Not available Gabapentin (Once-Daily) High 08/30/2018 Other Reaction(s): Allergy, Blistered Skin, Blisters, Not available Caused the skin on her lips to peel and nervousness Levofloxacin 03/24/2023 Tendon rupture Oxcarbazepine Nausea And Vomiting,Rash Medium 08/30/2018 Other Reaction(s): Confusion, Not available Sulfamethoxazole-Trimet hoprim 03/11/2021 Other Reaction(s): Joint pain, Muscle weakness, Myalgia Medications pantoprazole (ProtoNix) 40 MG EC tablet Take 40 mg by mouth in the morning. Take before meals. Active hydroxychloroqui ne (Plaquenil) 200 MG tablet Take 200 mg by mouth in the morning and 200 mg before bedtime. Active leflunomide (Arava) 20 MG tablet Take 20 mg by mouth Daily Active folic acid (Folvite) 1 MG tablet Take 1,000 mcg by mouth in the morning. Active tiZANidine (Zanaflex) 4 MG tablet Take 4 mg by mouth every 6 (six) hours if needed Active doxazosin (Cardura) 4 MG tablet Take 4 mg by mouth 1 (one) time each day at the same time Active Glucosamine-David droit-Vit C-Mn (Glucosamine 1500 Complex) capsule as directed Orally Active Turmeric 500 MG capsule as directed Orally Active traMADol (Ultram) 50 MG tablet Take 50 mg by mouth 3 (three) times a day as needed for moderate pain or severe pain Active diclofenac sodium 1 % gel External for 19 Days Active methotrexate 2.5 MG tablet Take 12.5 mg by mouth 1 (one) time per week. Active ibandronate (Boniva) 150 MG tablet Take 150 mg by mouth every 30 (thirty) days Active triamterene-hydr ochlorothiazide (Maxzide-25) 37.5-25 MG tablet Take 1 tablet by mouth Daily Active methylPREDNISolo ne (Medrol Dospak) 4 MG tablets TAKE DIRECTED 02/22/20 23 Active predniSONE (Deltasone) 5 MG tablet Take 5 mg by mouth As directed Active ascorbic acid (Vitamin C) 500 MG tablet Take 1,000 mg by mouth in the morning. Active biotin 1 MG capsule Take 2 mg by mouth in the morning. Active Calcium Carb-Cholecalcif ahmet (Oyster Shell Calcium w/D) 500-5 MG-MCG tablet Take by mouth Daily Active lisinopril 40 MG tablet Take 40 mg by mouth in the morning. Active acetaminophen (Tylenol 8 Hour) 650 MG ER tablet Take 1-2 tablets by mouth 2 (two) times a day as needed for mild pain or moderate pain Do not crush, chew, or split. Active carvedilol (Coreg) 25 MG tablet Take 25 mg by mouth in the morning and 25 mg in the evening. Take with meals. Active Multiple Vitamin (multivitamin) tablet Take 1 tablet by mouth Daily Active pregabalin (Lyrica) 25 MG capsuleIndicatio ns:Paresthesias, Spinal stenosis of lumbar region, unspecified whether neurogenic claudication present Take 1 capsule (25 mg) by mouth in the morning and 1 capsule (25 mg) before bedtime. Do not start before March 21, 2025. 60 capsule 2 03/21/20 25 025 Active Calcium-Vitamin D-Vitamin K (Calcium + D) 500-1000-40 MG-UNT-MCG chewable tablet 1 (one) time each day at the same time. 025 Discontinued Active Problems Problem Noted Date Diagnosed Date Long-term use of hydroxychloroquine 07/31/2024 Left posterior capsular opacification 07/31/2024 Blepharospasm 04/24/2024 Trigeminal neuralgia 04/24/2024 Arthritis, lumbar spine 04/24/2024 Fibromyalgia 04/24/2024 Facial weakness 04/24/2024 Osteopenia 04/24/2024 Spinal stenosis excluding cervical region 2023 Overview (04/24/2024): Lumbar region , without neurogenic claudication PVD (peripheral vascular disease) 04/24/2024 Peripheral neuropathy 04/24/2024 Small fiber neuropathy 04/24/2024 Polyneuropathy 04/24/2024 Overview (04/24/2024): The patient reports asymmetric paresthesias in the distal bilateral lower extremities (left more significant than right) which have not progressed since her prior appointment at [facility]. She has historically been diagnosed with polyneuropathy, and lab work in the past was unremarkable for cause. This may be idiopathic. No reported history of DM or alcohol abuse. Symptoms are well controlled on the current dose of Lyrica. Zonisamide was previously ineffective. - PLAN: - We discussed EMG of the BLE and further work up to assess for potential causes of polyneuropathy. This was declined by the patient today - Continue Lyrica 25 mg PO BID for neuropathy - Fall precautions discussed Hemifacial spasm 04/24/2024 Lumbar radiculopathy 04/24/2024 Spondylolisthesis 04/24/2024 Backache 04/24/2024 Muscle spasm 04/24/2024 Facet arthritis of lumbar region 04/24/2024 Dizziness 04/24/2024 Degenerative disc disease, lumbar 04/24/2024 Disturbance of skin sensation 04/24/2024 Radiculopathy, lumbosacral region 04/24/2024 Sciatica of left side 04/24/2024 Lumbar spinal stenosis 04/24/2024 Overview (04/24/2024): The patient has a history of lumbar fusion from L2-S1, and MRI of the lumbar spine in 03/2021 revealed severe spinal canal stenosis at L1. I reviewed Dr. Wyman neurosurgery consultation note from 08/2021. He opted out of surgery, as the patient had no symptoms of neurogenic claudication and felt pain management was appropriate. The patient has right-sided low back pain. Also, with paresthesias in the distal bilateral lower extremities, however, these may be more related to a peripheral neuropathy. No other apparent radicular symptoms. Right L4/L5/S1 facet injections on 03/08/23 were highly beneficial (initially with 100% pain reduction and effects lasting > 3 months). The patient remains physically active at home, and Lyrica is helpful. PLAN: - Hold off on further facet injections at this time per patient request due to symptom stability - Continue Lyrica 25 mg PO BID - We discussed the possibility of trigger injections as an adjunct to the current regimen, as paraspinal muscles are tender to palpation. Declined today. This may be considered in the future - Of note, she also follows with rheumatology Lumbar spondylosis 04/24/2024 Lumbar facet arthropathy 04/24/2024 Paresthesias 04/24/2024 Overview (04/24/2024): The patient presents today reporting constant paresthesias in the 1st digit and intermittent paresthesias in the 2nd and 3rd digits of the left hand. She denies neck pain, arm pain/paresthesias, or left upper extremity weakness. Given the clinical description, I am most suspicious for a left median neuropathy or potential cervical radiculopathy. PLAN: - I strongly recommended EMG of the LUE to assess for potentially causative processes as well as the severity. Patient declined at this time due to upcoming knee surgery in November 2023. She understands that EMG could help improve diagnostic accuracy and guide treatment options Intermediate stage nonexudat damian age-related macular degeneration of both eyes 07/13/2023 Dry eyes 07/13/2023 Blepharitis of upper and lower eyelids of both e yes 07/13/2023 Resolved Problems Problem Noted Date Diagnosed Date Resolved Date Bilateral posterior capsular opacification 07/13/2023 07/31/2024 Encounters Date Type Department Care Team Description 05/15/2025 9:00 AM EDT Office Visit [facility] [address] [place] [address] Yo Gilmore DO Intermediate stage nonexudative age-related macular degeneration of both eyes (Primary Dx); Long-term use of hydroxychloroquine 05/15/2025 Bamboo flowsheet [facility] [address] [place] [address] Yo Gilmore DO 05/15/2025 Travel 05/08/2025 Travel 04/04/2025 11:50 AM EDT Procedure Visit [facility] [address] [place] [address] Elie Tello DPKeri Pain due to onychomycosis of toenails of both feet (Primary Dx) 04/04/2025 Bamboo flowsheet [facility] [address] [facility] [address] [place] [id number] Elie Tello DPKeri 04/04/2025 Travel 03/28/2025 Travel 03/20/2025 Telephone [facility] [place] [address] [place] [phone] Kris Arevalo, REGINALD Med Refill 03/07/2025 8:30 AM EDT Office Visit [facility] [address] [facility] [address] [place] [id number] Elie Tello DPKeri Acquired deformity of left toe (Primary Dx); Other polyneuropathy 03/07/2025 Bamboo flowsheet [facility] [address] [facility] [address] [place] [phone] Elie Tello DPM 03/07/2025 Travel 02/28/2025 9:15 AM EDT Procedure Visit [facility] [place] [phone] Noemi Kaufman DO Blepharospasm (Primary Dx); 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 02/28/2025 Travel 02/28/2025 [facility]QUA [facility] flowsheet [facility] [address] [place] [phone] Noemi Kaufman DO 02/21/2025 Travel from Last 3 Months Immunizations Immunization Administration Dates Next Due Pneumococcal Conjugate PCV 13 09/11/2018 Family History Medical History Relation Name Comments Cancer Father Carmelo Chris Cancer Maternal Grandfather Josiah Walker Cancer Mother Mary Chris Macular degeneration Mother Mary Chris Cancer Mother's Sister 1 Kelsie Walker Cataracts Mother's Sister 2 Bertha Walker Stroke Mother's Sister 2 Bertha Walker Heart disease Other Cancer Sister 1 Loretta Barrera Cataracts Sister 1 Loretta Barrera Diabetes Sister 1 Loretta Barrera Migraines Sister 1 Loretta Barrera Cataracts Sister 2 Anh Merritt Relation Name Status Comments Father Carmelo Chris Maternal Grandfather Josiah Walker Mother Mary Chris Mother's Sister 1 Kelsie Walker Mother's Sister 2 Bertha Walker Other Sister 1 Loretta Barrera Sister 2 Anh Merritt Social History Tobacco Use Types Packs/Day Years [...] Orientation Straight 03/30/2023 3: 52 PM EDT Last Filed Vital Signs Vital Sign Reading Time Taken Comments Blood Pressure 164/98 02/28/2025 9:15 AM EDT Pulse 71 02/28/2025 9:15 AM EDT Temperature - - Respiratory Rate 18 04/04/2025 11:59 AM EDT Oxygen Saturation 96% 02/28/2025 9:15 AM EDT Inhaled Oxygen Concentration - - Weight 101 kg (222 lb) 04/04/2025 11:59 AM EDT Height 172.7 cm (5' 8 ) 04/04/2025 11:59 AM EDT Body Mass Index 33.75 04/04/2025 11:59 AM EDT Plan of Treatment Upcoming Encounters Date Type Department Care Team (Late st Contact Info) Description 06/13/2025 9:50 AM EDT Procedure Visit [facility] [address] [place] [address] Elie Tello, DPM [address] [facility] [address] [place] [address] 02/19/2026 9:00 AM EDT Office Visit [facility] [address] [place] [id number] Yo Gilmore, [address] [place] [address] Health Maintenance Due Date Last Done Comments CT Colonography 1955 Colonoscopy 1955 Colorectal Cancer Screening 1955 FIT-DNA 1955 FIT 1955 FOBT 1955 Sigmoidoscopy 1955 Mammogram 08/31/2023 08/31/2022 Influenza Vaccine (#1) 2025 4, 08/25/2023, 08/23/2022, Additional history exists Pneumococcal Vaccine: 65+ Years Completed 5, 09/11/2018 Procedures Procedure Name Priority Date/Time Associated Diagnosis Comments WATSON VISUAL FIELD - OU - BOTH EYES Routine 05/15/2025 10:05 AM EDT Long-term use of hydroxychloroquine OCT, RETINA - OU - BOTH EYES Routine 05/15/2025 10:02 AM EDT Intermediate stage nonexudative age-related macular degeneration of both eyes BI MAMMOGRAM SCREENING TOMOSYNTHESIS BILATERAL Routine 08/31/2022 from Last 3 Months or Most Recently Relevant to Health Maintenance Results * Watson Visual Field - OU - Both Eyes (05/15/2025 10:05 AM EDT) Anatomical Region Laterality Modality Head Visual Field Narrative 05/15/2025 10:05 AM EDT Right Eye Reliability was good. Progression has been stable. Foveal threshold was normal. Findings include normal observations. Left Eye Reliability was good. Progression has been stable. Foveal threshold was normal. Findings include normal observations. Yo Gilmore DO OPHTH VISUAL FIELD Final Re sult * OCT, [...] Good scan with normal appearance Yo Gilmore OPHTH TOMOGRAPHY Edited Res ult - Final * Bilateral screening mammogram with tomosynthesis (08/31/2022) Anatomical Region Laterality Modality Breast Bilateral Mammography Narrative 08/31/2022 12:00 AM EDT PERFORMED AT [facility] LOCATION:[address] Patient: DIVINE Holden Exam Date: 08/31/2022 : 1955 Gender:F Ordering : DR JEAN-PAUL MURPHY . Admission #: [id number] Family : DR YULISA HOYOS . Order #: [id number] CLICK HERE TO VIEW EXAM RADIOLOGY REPORT PROCEDURE: MAMMOGRAM SCREENING 3D BILATERAL CAD COMPARISON: MG MAMM SCREEN 3D BO CAD 08/27/2021. MG MAMM SCREEN BO W CAD 08/25/2020. INDICATIONS: Screening mammography Calculator Name NCI Breast Cancer Risk Assessment Tool 5 Year Breast Cancer Risk 1.90% Lifetime Breast Cancer Risk 5.90% Personal Breast Cancer No Personal Ovarian Cancer No Treatments None Family Cancers Father with stomach cancer at age 55; Sister with thyroid cancer at age 50. LOCATION: [facility] BREAST COMPOSITION: Scattered areas fibroglandular density. FINDINGS: [...] PALPABLE LUMP SHOULD BE BIOPSIED. Dictated by: Felix Sandoval MD on 08/31/2022 at 11:12 Approved by: Felix Sandoval MD on 08/31/2022 at 11:14 Procedure Note CONVERSION, GENERIC - 05/13/[address] [facility] LOCATION:[address] Patient: DIVINE Erickson. Exam Date: 08/31/2022 : 1955 Gender:F Ordering : DR JEAN-PAUL MURPHY . Admission #: [id number] Family : DR YULISA HOYOS . Order #: [id number] CLICK HERE TO VIEW EXAM RADIOLOGY REPORT PROCEDURE: MAMMOGRAM SCREENING 3D BILATERAL CAD COMPARISON: MG MAMM SCREEN 3D BO CAD 08/27/2021. MG MAMM SCREEN BO W CAD 08/25/2020. INDICATIONS: Screening mammography Calculator Name NCI Breast Cancer Risk Assessment Tool 5 Year Breast Cancer Risk 1.90% Lifetime Breast Cancer Risk 5.90% Personal Breast Cancer No Personal Ovarian Cancer No Treatments None Family Cancers Father with stomach cancer at age 55; Sister withthyroid cancer at age 50. LOCATION: [facility] BREAST COMPOSITION: Scattered areas fibroglandular density. FINDINGS: DIAGNOSTIC CATEGORY 1--NEGATIVE. NO CHANGE FROM COMPARISON ASSESSMENT. Scattered benign-appearing calcifications are present. Scattered benign-appearing lymph nodes are present. RIGHT BREAST: No significant suspicious finding. LEFT BREAST: No significant suspicious finding. RECOMMENDATIONS: ROUTINE MAMMOGRAM AND CLINICAL EVALUATION IN 12 MONTHS. PLEASE NOTE: A NORMAL MAMMOGRAM DOES NOT EXCLUDE THE POSSIBILITY OFBREAST CANCER. A CLINICALLY SUSPICIOUS PALPABLE LUMP SHOULD BE BIOPSIED. Dictated by: Felix Sandoval MD on 08/31/2022 at 11:12 Approved by: Felix Sandoval MD on 08/31/2022 at 11:14 Jean-Paul Murphy MD IMG BI PROCEDURES Final Resul t from Last 3 Months or Most Recently Relevant to Health [place] [address] MEDICARE [facility] Care Teams Marketing Research Analyst Relationship Specialty Start Date End Date Yulisa Hoyos MD PCP - General 07/06/23 Gaby Christianson NP Nurse Practitioner Neurology 01/26/24 Celso Delatorre MD [address] [facility] Professional building [address] [place] [phone] Referring Physician Rheumatology 07/31/24
--- OUTSIDE RECORDS SUMMARY | 2025-05-23 10:34 | XMS_ITS | Clinical Summary ---
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 Name Role Phone Stevie Hoyos MD Primary Care Provider [phone] Allergies Active Allergy Reactions Criticality Noted Date Comments Alendronate Abdominal Discomfort,Dyspeps ia Medium 08/30/2018 Sulfamethoxazole-Trimetho prim Myalgia 03/11/2021 Ciprofloxacin High 03/24/2023 Other reaction(s): Allergy critical , tendon rupture Gabapentin Nausea and Vomiting Medium 08/30/2018 Gabapentin (Once-Daily) Blisters High 08/30/2018 Caused the skin on her lips to peel and nervousness Levofloxacin 03/24/2023 Tendon rupture Oxcarbazepine Nausea and Vomiting Medium 08/30/2018 Sulfamethoxazole Weakness 05/07/2021 Trimethoprim Weakness 05/07/2021 Medications ibandronate 150 MG Tab Take 1 tablet by mouth every 30 days. 6 Active pantoprazole [address] Take 1 tablet by mouth every evening at 6 PM. Active triamterene-hydro chlorothiazide 37.5-25 MG Cap Take 1 capsule by mouth as needed (edema). Active lisinopril 40 MG tablet Take 1 tablet by mouth daily. Active Hydroxychloroquin e 200 MG tablet Take 1 tablet by mouth 2 times daily. Active amoxicillin 250 MG capsule Take 2 capsules by mouth every 8 hours. 4 capsules 1 hour before procedure Active Diclofenac Sodium 1 % Gel gel Diclofenac Diclofenac Sodium Active 4 GM Topical Four times daily October 01, 2020 10:38am 10-01-2020 [facility] ([id number]) 0 Active Doxazosin 4 MG tablet Take 1 tablet by mouth daily. 3 Active pregabalin 25 MG capsule every 12 hours. 3 Active tiZANidine 4 MG tablet Take 1 tablet by mouth every 6 hours as needed for Muscle spasms. Active predniSONE 5 MG tablet Take 1 tablet by mouth as needed (for flair up of whole body). Active Leflunomide 20 MG tablet Take 1 tablet by mouth daily. Active Biotin 1 MG capsule Take by mouth daily. Active Alpha-Lipoic Acid 200 MG capsule 1 capsule daily. Active Folic acid 1 MG tablet Take 1 tablet by mouth daily. Active Glucosamine-Chond roit-Vit C-Mn (Glucosamine 1500 Complex) capsule Take by mouth daily. Active methotrexate 2.5 MG tablet every 7 days. Active methylPREDNIsolon e 4 MG Tab Therapy Pack tablet as needed. 3 Active traMADol 50 MG tablet Take 1 tablet by mouth 3 times daily as needed for Pain. 3 Active TURMERIC PO as directed Orally Active Ascorbic acid 500 MG tablet Take 1 tablet by mouth daily. Active Oyster Shell Calcium w/D 500-5 MG-MCG tablet Take by mouth daily. Active carveDILOL 25 MG tablet Take 1 tablet by mouth 2 times daily. 4 Active Docusate 100 MG capsule Take 1 capsule by mouth 2 times daily. 60 capsule 4 Active apixaban 2.5 MG tablet Take 1 tablet by mouth every 12 hours. This medication is for blood clot prevention 70 tablet 4 Active therapeutic multivitamin-mine rals tablet Take 1 tablet by mouth at bedtime. 30 tablet 4 Active Meloxicam 7.5 MG tablet Take 1 tablet by mouth daily. Take with food. 30 tablet 4 Active Sucralfate 1 g tablet Take 1 tablet by mouth 2 times daily. 60 tablet 4 Active Acetaminophen 325 MG tablet Take 2 tablets by mouth every 4 hours as needed for Mild Pain. 50 tablet 1 4 Active oxyCODONE 5 MG tabletIndications :Acute postoperative pain of left knee Take 1-2 tabs po q 4-6 hours prn pain. Wean as tolerated. 30 tablet 4 Active Active Problems Problem Noted Date Diagnosed Date S/P total knee arthroplasty 11/30/2023 Osteoarthritis of right knee 04/26/2023 Cellulitis of left axilla 04/20/20232022 Chronic cystitis 04/20/2023 04/20/2023 Hyperlipidemia 04/20/2023 04/20/2023 Hyperthyroidism 04/20/2023 04/20/2023 Raynaud's phenomenon 04/20/2023 04/20/2023 Undifferentiated connective tissue disease 04/2004/20/2023 Pain in left knee 11/21/2018 Assessment & Plan (11/21/2018 11:49 AM EST): For likely surgical intervention PT OT aids social worker discharge planning DVT prophylaxis per orthopedic surgery recommendation Synovial hernia 11/21/2018 Obesity: body mass index of 30.0-34.9 2017 Assessment & Plan (11/21/2018 11:48 AM EST): Lifestyle changes and dietary modifications Patellar tendon rupture 2017 Benign hypertension 2017 Assessment & Plan (11/21/2018 11:49 AM EST): Continue outpatient therapy Add when necessary for systolic blood pressure greater than 160 Rheumatoid arthritis 2017 Assessment & Plan (11/21/2018 11:49 AM EST): Resume outpatient therapy when okay per orthopedic surgery GERD (gastroesophageal reflux disease) 7 Assessment & Plan (11/21/2018 11:49 AM EST): Continue PPI daily Family History Medical History Relation Name Comments Cancer Father Bleeding or Clotting Problems Mother blood clots Heart Disease - Other Mother Hypertension Mother Cancer Sister Diabetes Sister Relation Name Status Comments Father Mother Sister Social History Tobacco Use Types Packs/Day Years Used Date Smoking Tobacco: Never Smokeless Tobacco: Never Tobacco Cessation:Counseling Given: Not Answered Alcohol Use Standard Drinks/Week Comments No 0 (1 standard drink = 0.6 oz pur e alcohol) [facility] Utilities Answer Date Recorded In the past 12 months has e electric, gas, oil, or water company threatened to shut off services in your home? No 11/29/2023 Hunger Vital Sign Answer Date Recorded Within the past 12 months, y ou worried that your food would run out before you got the money to buy more. Never true 11/29/19 24 Within the past 12 months, t he food you bought just didn't last and you didn't have money to get more. Never true 11/29/2023 PRAPARE - Transportation Answer Date Re corded In the past 12 months, has l ack of transportation kept you from medical appointments or from getting medications? No 11/08 In the past 12 months, has l ack of transportation kept you from meetings, work, or from getting things needed for daily living? No 11/29/2023 Housing Stability Vital Sign Answer Otto e Recorded In the last 12 months, was t here a time when you were not able to pay the mortgage or rent on time? No 11/29/2023 In the last 12 months, how many places have you lived? 1 11/29/2023 In the last 12 months, was t here a time when you did not have a steady place to sleep or slept in a detention (including now)? No 11/29/2023 Comments Unknown Sex and Gender Information Value Date Recorded Sex Assigned at Not on file Legal Sex Female 4:08 PM EST Gender Identity Female Sexual Orientation Straight 11/25/2024 8: 16 AM EST Last Filed Vital Signs Vital Sign Reading Time Taken Comments Blood Pressure 135/61 12/02/2023 7:33 AM EST Pulse 69 12/02/2023 7:33 AM EST Temperature 36.4 C (97.5 F) 05/31/2024 9:44 AM EDT Respiratory Rate 16 12/02/2023 7:33 AM EST Oxygen Saturation 95% 12/02/2023 8:00 AM EST Inhaled Oxygen Concentration - - Weight 107 kg (236 lb) 11/28/2024 11:19 AM EST Height 170.2 cm (5' 7 ) 11/28/2024 11:19 AM EST Body Mass Index 36.96 11/28/2024 11:19 AM EST Plan of Treatment Upcoming Encounters Date Type Department Care Team (Late st Contact Info) Description 11/27/2025 10:30 AM EST Office Visit [facility] [address] [place] [address] New Borden MD [address] [place] [address] Health Maintenance Due Date Last Done Comments DEXA SCAN DISCUSSION 1953 HEPATITIS C VIRUS SCREENING 1953 TETANUS 1953 TDAP (ADULT) 1972 CERVICAL CANCER SCREENING DISCUSSION 1974 LIPID SCREENING 1993 COLORECTAL CANCER SCREENING DISCUSSION 1998 ZOSTER (SHINGLES) VACCINE (1 of 2) 2003 MAMMOGRAM SCREENING DISCUSSION 08/31/2023 08/31/2022 POTASSIUM 12/01/2024 12/01/2023, 11/08, 11/03/2023, Additional history exists COVID-19 VACCINE ( season) 2025 09/03/2024, 08/25/2023, 08/23/2022, Additional history exists INFLUENZA VACCINE (#1) 2025 , 08/25/2023, 08/23/2022, Additional history exists RSV VACCINE (1 - 1-dose 75+ series) 2028 PNEUMOCOCCAL VACCINE SERIES Completed 11/24/2024, 1 11/11/2017 HEP B VACCINE Aged Out No longer elig ible based on patient's age to complete this topic Medical Devices Implanted Type Area Life Specialist Device Identifier Shelf Expiration Date Model / Serial / Lot Prolite Mesh 25.4 Cm X 35.5cm Implanted:Qty: 1 on 11/21/2018 by New Borden MD at [facility] Knee Joint Left: Knee [employer] 05/01/2023 / [id number] / [id number] Attune Knee System Revision Distal Femoral Augment Size 7 12mm Cemented Implanted:Qty: 1 on 11/29/2023 by New Borden MD at [facility] Knee Joint Left: Knee [employer] 04/06/2030 3 / / [id number] Prolene Mesh Polypropylene Nonabsorbable Synthetic Surgical Mesh 12 X 12 Implanted:Qty: 1 on 11/29/2023 by New Borden MD at [facility] Knee Joint Left: Knee 09/06/2027 / / [id number] Attune Knee System Revision Pressfit Stem 12mm X 60mm Implanted:Qty: 1 on 11/29/2023 by New Borden MD at [facility] Knee Joint Left: Knee [employer] 04/06/2033 1513-10-12 0 / / [id number] Attune Knee System Revision Distal Femoral Augment Size 7 12mm Cemented Implanted:Qty: 1 on 11/29/2023 by New Borden MD at [facility] Knee Joint Left: Knee [employer] 05/06/2030 3 / / [id number] Attune Knee System Revision Tibial Base Rotating Platform Size 5 Cemented Implanted:Qty: 1 on 11/29/2023 by New Borden MD at [facility] Knee Joint Left: Knee [employer] 06/06/2033 5 / / [id number] Attune Knee System Revision Tibial Sleeve Poracoat Partially Coated 37mm Implanted:Qty: 1 on 11/29/2023 by New Borden MD at [facility] Knee Joint Left: Knee [employer] 08/06/2033 1511-09-08 / / [id number] Attune Knee System Revision Femoral Sleeve Porocoat Partially Coated 40mm Implanted:Qty: 1 on 11/29/2023 by New Borden MD at [facility] Knee Joint Left: Knee [employer] 03/06/2032 1510-11-16 4 / / [id number] Attune Knee System Revision Posterior Femoral Augment Size 7 4mm Cemented Implanted:Qty: 2 on 11/29/2023 by New Borden MD at [facility] Knee Joint Left: Knee [employer] 12/07/2032 1 / / [id number] Attune Knee System Revision Crs Femoral Size 7 Left Cemented Implanted:Qty: 1 on 11/29/2023 by New Borden MD at [facility] Knee Joint Left: Knee [employer] 04/06/2033 7 / / [id number] Palacos R 1x40 Single - [id number] Implanted:Qty: 1 on 11/21/2018 by New Borden MD at [facility] Other Left: Knee / / [id number] Palacos R+G 1x40 Single With Gentamicin - [id number] Implanted:Qty: 4 on 11/29/2023 by New Borden MD at [facility] Other Left: Knee 12/07/2026 [id number] / / [id number] Palacos R 1 X 40 - [id number] Implanted:Qty: 2 on 04/26/2023 by New Borden MD at [facility] Right: Knee 10/06/2027 / [id number] / [id number] Attune Knee System Revision Tibial Base Fixed Bearing Implanted:Qty: 1 on 04/26/2023 by New Borden MD at [facility] Right: Knee [employer] 11/06/2032 / 5 / [id number] Attune Femoral Posterior Stabilized Implanted:Qty: 1 on 04/26/2023 by New Borden MD at [facility] Right: Knee [employer] 09/06/2032 / 1504-08-26 7 / [id number] Attune Patella Medialized Dome Implanted:Qty: 1 on 04/26/2023 by New Borden MD at [facility] Right: Knee [employer] 09/06/2027 / 8 / [id number] [place] Cancellous Bone Screw Implanted:Qty: 1 on 04/26/2023 by New Borden MD at [facility] Right: Knee [employer] 03/06/2027 / 0 / [id number] Attune Tibial Insert Fixed Bearing Posterior Stabilized Implanted:Qty: 1 on 04/26/2023 by New Borden MD at [facility] Right: Knee [employer] 06/06/2027 / 8 / [id number] Attune Knee System Revision Pressfit Stem Implanted:Qty: 1 on 11/29/2023 by New Borden MD at [facility] Left: Knee [employer] 02/05/2032 / 0 / [id number] Palacos R & G Bone Cement High-Viscosity With Gentamicin - [id number] Implanted:Qty: 1 on 11/29/2023 by New Borden MD at [facility] Left: Knee 01/04/2026 / [id number] / [id number] Attune Knee System Revision Crs Rotating Platform Insert Implanted:Qty: 1 on 11/29/2023 by New Borden MD at [facility] Left: Knee [employer] 04/06/2028 / 2 / [id number] Procedures Procedure Name Priority Date/Time Associated Diagnosis Comments BASIC METABOLIC PANEL Today 12/01/2023 4:51 AM EST from Last 3 Months or Most Recently Relevant to Health Maintenance Results * (ABNORMAL) BASIC METABOLIC PANEL (12/01/2023 4:51 AM EST) Pathologist [facility] Glucose 125(H) 70 - 100 MG/DL [address] Comment: NORMAL <100 mg/dL PREDIABETES 101-126 mg/dL DIABETES 126 mg/dL or higher BUN 15 7 - 20 MG/DL [address] CREATININE SERUM 0.50(L) 0.70 - 1.20 MG/DL [address] SODIUM 136(L) 137 - 145 MMOL/L [address] Potassium 3.4(L) 3.5 - 5.1 MMOL/L [address] CHLORIDE 106 98 - 107 MMOL/L [address] Comment:Please note: Triglyc eride levels of 600mg/dL or higher may positively bias chloride results by approximately 2.1 mmol CARBON DIOXIDE (CO2) 23 22 - 30 MMOL/L [address] ANION GAP 7 MMOL/L [address] CALCIUM 8.4 8.4 - 10.2 MG/DL [address] ESTIMATED GFR, NON AMER 130 ml/min/1. 73sq.m [address] ESTIMATED GFR, 157 ml/min/1. 73sq[address]m [address] GFR COMMENT Average GFR for 70+ years old = 75. [address] Comment: Chronic Kidney disease, GFR = <60. Kidney failure, GFR = <15. The GFR estimate is not adjusted for extreme body surface area or acute process, nor has it been validated for women or ethnic groups other than and . Blood 12/01/2023 4:51 AM EST 12/01/2023 5:27 AM EST us Deshawn Sunshine MD CHEMISTRY ORDERABLES Final Resul t [facility] - [address] [facility] [address] [place] [address] from Last 3 Months or Most Recently Relevant to Health Maintenance Insurance MEDICARE A AND B MEDICARE SUPPLEMENT Advance Directives For more information, please contact: [phone] (7:30 AM - 6PM Stephenie/[facility], Tuesday-Tuesday) * Full Code (Latest Code Status on File) Date Activated Date Inactivated Comments 11/29/2023 5:14 PM * Full Code Date Activated Date Inactivated Comments 04/26/2023 2:32 PM 11/29/2023 5:14 PM * Full Code Date Activated Date Inactivated Comments 11/21/2018 2:46 PM 04/26/2023 2:32 PM * Full Code Date Activated Date Inactivated Comments 07/18/2017 4:04 PM 07/21/2017 7:25 PM Care Teams Refuse And Recycling Worker Relationship Specialty Start Date End Date Stevie Hoyos MD PCP - General Family Medicine 03/18/23
[2025-05-23 11:06] LABS: Hematocrit 36.2 % (36.0-48.0); Hemoglobin 12.0 g/dL (12.0-16.0); Immature Granulocytes Abs Auto 0.01 10^3/uL (0.00-0.03); Immature Granulocytes Pct Auto 0.3 % (0.0-0.5); Lymphocytes Absolute Auto 0.5 10^3/uL (1.2-3.8); Mean Corpuscular HGB Conc 33.1 g/dL (29.9-35.2); Mean Corpuscular Hemoglobin 34.1 pg (26.7-34.0); Mean Corpuscular Volume 102.8 fL (81.0-99.0); Platelet Count 180 10^3/uL (150-450); Red Blood Count 3.52 10^6/uL (4.20-5.40); White Blood Count 3.2 10^3/uL (4.0-11.0)
[2025-05-23 11:58] LABS: Alanine Aminotransferase 31 U/L (14-59); Albumin Globulin Ratio 1.2; Albumin Level 3.7 g/dL (3.4-5.0); Alkaline Phosphatase 62 U/L (46-116); Anion Gap 12.5; Aspartate Amino Transferase 28 U/L (15-37); Blood Urea Nitrogen 21.0 mg/dL (7.0-18.0); Calcium 9.5 mg/dL (8.5-10.1); Carbon Dioxide 27.0 mmol/L (21.0-32.0); Chloride 104 mmol/L (98-107); Estimated GFR (African America >60 (>=60 mL/min/1.73m^2); Estimated GFR (Non-African Ame >60 (>=60 mL/min/1.73m^2); Globulin 3.2 g/dL; Glucose 104 mg/dL (74-106); Potassium 4.5 mmol/L (3.5-5.1); Sodium 139 mmol/L (136-145); Total Protein 6.9 g/dL (6.4-8.2)
[2025-05-23 14:26] LABS: Glucose Urine UA NEGATIVE (NEGATIVE)
[2025-05-23 14:32] LABS: Cast Seen? NONE SEEN #/LPF (NONE SEEN); Crystals Seen? None Seen #/HPF (None Seen)
== END 2025-05-23 10:29 | disposition home or self-care (01) ==
LOC: LAB 10:31
PROVIDERS: PCP Family Medicine; Visit Provider Internal Medicine Rheumatology
DX: M06.4 Inflammatory polyarthropathy (principal); M15.0 Primary generalized (osteo)arthritis; Z79.899 Other long term (current) drug therapy
CPT/HCPCS: 36415; 80053; 81001; 85025; 85652; 86160; 86162

== ENCOUNTER 2025-08-15 11:13 | Outpatient (OUT) | payer MEDICARE, BC, SELFPAY ==
--- OUTSIDE RECORDS SUMMARY | 2025-08-15 11:26 | XMS_ITS | CCD ---
Author Organization [facility] Care Team Providers Care Skip Hoist Engineer Name Role Phone Wood, Star A Unavailable Unavailable Wood, Star A Unavailable Unavailable Wood, Star A Unavailable Unavailable Wood, Star A Unavailable Unavailable FOSTER, NEW Unavailable Unavailable FOSTER, NEW Unavailable Unavailable BROWN, STEPHEN Rashmi Unavailable Unavailable ARLYN VANCE Unavailable Unavailable FOSTER, NEW Unavailable Unavailable DAYRON ZAVALA Unavailable Unavailable Salomón Gonzalez Unavailable Salomón Gonzalez Primary Care Provider Salomón Gonzalez Primary Care Provider [phone] Salomón Gonzalez DO Primary Care Provider Stephen [...] Admitting Unavailable MISC, DR COBB Consulting Unavailable MONACO, [...] HOY ., DR MÁRQUEZ Primary Care Unavailable YADIRA, DR CHARO Charles Consulting Unavailable Yulisa Batres MD Primary Care Provider [phone] Yulisa Batres MD Primary Care Provider [phone] Mal, Mary Admitting Unavailable Mal, Mary Attending Unavailable Hoy, Yulisa M Primary Care Unavailable Darren Monaco Referring Unavailable Yulisa Batres MD Primary Care Provider [phone] Sammy LINESPERSON, Gaby Unavailable Juan Ramon OCONNELL, Darren Chatman Unavailable FOSTER, NEW Attending Unavailable SELF, SELF [...] RAJINDER Referring Unavailable ABBY, RAJINDER Attending Unavailable FOSTER, NEW Attending Unavailable HOY, YULISA M Primary Care Unavailable SELF, SELF Referring Unavailable FOSTER, NEW Referring Unavailable FOSTER, NEW Attending Unavailable HOY, YULISA M Primary Care Unavailable SELF, SELF Referring Unavailable HOY, YULISA M Primary Care Unavailable ABBY, RAJINDER Attending Unavailable HOY, YULISA M Primary Care Unavailable ABBY, RAJINDER Referring Unavailable ABBY, RAJINDER Attending Unavailable SELF, SELF Referring Unavailable HOY, YULISA M Primary Care Unavailable FOSTER, NEW Attending Unavailable FOSTER, NEW Attending Unavailable FOSTER, NEW Referring Unavailable HOY, YULISA M Primary Care Unavailable FOSTER, NEW Attending Unavailable SELF, SELF Referring Unavailable HOY, YULISA M Primary Care Unavailable FOSTER, NEW Attending Unavailable FOSTER, NEW Referring Unavailable HOY, YULISA M Primary Care Unavailable Yulisa Batres MD Primary Care Provider [phone] Yulisa Batres MD Primary Care Provider [phone] Sammy TIRE DESIGN ENGINEER-QUARRY BOSS-C, Gaby Chatman Attending Provider Sammy LINESPERSON, Gaby Unavailable Unavailable Magalie Kaufman DO Attending Provider Yulisa Batres MD Primary Care Provider [phone] Sammy LINESPERSON, Gaby Unavailable Unavailable SAMMY, GABY Attending Unavailable BROWN, ELIE A Attending Unavailable BROWN, ELIE A Attending Unavailable BROWN, ELIE A Attending Unavailable BROWN, ELIE A Attending Unavailable BROWN, ELIE A Attending Unavailable BROWN, ELIE A Referring Unavailable BROWN, ELIE A Attending Unavailable BROWN, ELIE A Attending Unavailable MANDEEP, MAGALIE Attending Unavailable BROWN, ELIE A Attending Unavailable BROWN, ELIE A Attending Unavailable ZAHLER, RAMON Meneses Attending Unavailable BROWN, ELIE A Attending Unavailable BROWN, ELIE A Attending Unavailable CHRISTIANSON, GABY Attending Unavailable BROWN, ELIE A Attending Unavailable MANDEEP, MAGALIE Attending Unavailable ZAHLER, RAMON D Attending Unavailable BROWN, ELIE A Attending Unavailable BROWN, ELIE A Attending Unavailable BROWN, ELIE A Attending Unavailable MONI, SHANTE Attending Unavailable MONI, SHANTE Attending Unavailable MANDEEP, MAGALIE Attending Unavailable BROWN, ELIE A Attending Unavailable Shante Montenegro DO Attending Provider [phone] Allergies Allergy Classification Reported Allergen(s) Allergy Type Date of Onset Reaction(s) Facility Alendronate (1 source) Alendronate Drug Allergy 08-30-2 018 Abdominal Discomfort, Dyspepsia [facility] Anti-Epileptic Agents (3 sources) gabapentin Drug Allergy 08-30-2 018 Nausea and Vomiting, Blisters [facility] Sulfamethoxazole / Trimethoprim (1 source) Sulfamethoxazole / Trimethoprim Drug Allergy 021 Myalgia [facility] (20 sources) Alendronate Drug Allergy 08-29-2 018 Abdominal Discomfort, Dyspepsia, Rash [facility] Work Phone: (20 sources) gabapentin Drug Allergy 08-30-2 018 Nausea and Vomiting, Nausea Only, Rash [facility] Work Phone: (20 sources) gabapentin Drug Allergy 08-30-2 018 Blisters [facility] Work Phone: (20 sources) OXcarbazepine Drug Allergy Nausea and Vomiting [facility] Work Phone: (20 sources) Ciprofloxacin Drug Allergy Unknown, [facility] (20 sources) levoFLOXacin Drug Allergy Unknown, Unknown Reaction [facility] Other (20 sources) Sulfamethoxazole / Trimethoprim Drug Allergy Myalgia [facility] Other (1 source) Alendronate Drug Allergy [facility] (1 source) gabapentin Drug Allergy [facility] (1 source) gabapentin Drug Allergy [facility] (1 source) OXcarbazepine Drug Allergy [facility] (7 sources) Alendronate; Translations: [alendronate sodium] Drug Allergy Unknown Reaction [facility] (13 sources) Sulfamethoxazole; Translations: [sulfamethoxazole] Drug Allergy Weakness [facility] (13 sources) Trimethoprim; Translations: [trimethoprim] Drug Allergy Weakness [facility] (1 source) Ciprofloxacin Drug Allergy [facility] (1 source) gabapentin Drug Allergy [facility] (1 source) OXcarbazepine Drug Allergy [facility] (20 sources) Oxcarbazepine Propensity to adverse reactions to drug Nausea and Vomiting, Rash [facility] Medications Current Medications Medication Drug Class(es) Dates Sig (Normalized) Sig (Original) acetaminophen 325 mg oral tablet (20 sources) Start: 11-29-2023 take 2 tablets by mouth every four hours as needed Acetaminophen 325 MG tablet Take 2 tablets by mouth every 4 hours as needed for Mild Pain. 50 tablet 1 11/29/2023 Active Start: 04-26-2023 take 2 tablets by mo ut every four hours as needed Acetaminophen 325 [...] MG PO Q12H May 07, 2021 12:00am Complies with drug therapy Start: 11-21-2018 take 2 tablets by mo [...] MG PO Daily October 01, 2020 1:00am Complies with drug therapy take 2 tablets by mouth in the m orning ascorbic acid (Vitamin C) 500 MG tablet Take 1,000 mg by mouth in the morning. Active take 1 tablet by mouth once nikkie y Ascorbic acid 500 MG tablet Take 1 tablet by mouth daily. Active Ascorbic Acid (V itamin C) 1000 MG tablet Take 500 mg by mouth daily. 0 Active azithromycin 250 mg oral tablet (9 sources) Macrolide Antimicrobial Start: 07-18-2024 End: 08-04-2024 take 1 tablet by mouth once daily azithromycin (Zithromax Z-Rhett) 250 MG tablet Indications: Abscess of toe, right Take 1 tablet (250 mg) by mouth Daily for 5 days Use as directed 6 tablet 07/30/2024 08/04/2024 Active biotin 1 mg chewable tablet (20 sources) Start: 05-07-2021 take 1 tablet by mouth once daily Biotin 1,000 mcg Tablet,Chewable Active 1000 MCG PO Daily May 07, 2021 12:00am Complies with drug therapy Start: 10-01-2020 take 1 capsule by [facility] twice daily Biotin 10,000 mcg Capsule Active 49237 MCG PO Twice daily October 01, 2020 1:00am Complies with drug therapy take 2 capsules by outh in the morning biotin 1 MG capsule Take 2 mg by mouth in the morning. Active Biotin 1 MG caps ule Take by mouth daily. Active take 2 tablets by [facility] twice daily Biotin 66672 MCG Tab Take 2 tablets by mouth 2 times daily. 0 Active bisacodyl 10 mg rectal suppository (1 source) Stimulant Laxative Start: 11-21-2018 bisacodyl (DULCOLAX) suppository 10 mg onabotulinumtoxina 200 unt injection (6 sources) Acetylcholine Release Inhibitor Start: 02-28-2025 End: 02-28-2025 onabotulinumtoxinA (Botox) injection 80 Units Start: 02-28-2025 End: 02-28-2025 inject 80 [IU] by intramuscular injection once 80 Units, Intramuscular, Once, On Shonda 02/28/25 at 1300, For 1 dose, Charging context for this clinic-administered medication: Medically Necessary/Insurance Start: 10-25-2024 End: 10-25-2024 onabotulinumtoxinA (Botox) i njection 80 Units Start: 10-25-2024 End: 10-25-2024 inject 80 [IU] by intramuscular injection once 80 Units, Intramuscular, Once, On Shonda 10/25/24 at 1215, For 1 dose, Charging context for this clinic-administered medication: Medically Necessary/Insurance Start: 07-26-2024 End: 07-26-2024 onabotulinumtoxinA (Botox) i njection 80 Units Start: 07-26-2024 End: 07-26-2024 inject 80 [IU] by intramuscular injection once 80 Units, Intramuscular, Once, On Shonda 07/26/24 at 1300, For 1 dose, Charging context for this clinic-administered medication: Medically Necessary/Insurance calcium carbonate 500 mg chewable tablet (1 source) Start: 11-21-2018 calcium carbon ate (TUMS) tablet 500 mg calcium carbonate 1500 mg / cholecalciferol 200 unt oral capsule (20 sources) Vitamin D Start: 10-01-2020 take 1 capsule by mouth once daily Calcium Carbonate-Vitamin D3 (Calcium 600 + D(3)) 600 mg calcium- 200 unit Capsule Active 1 CAP PO Daily October 01, 2020 1:00am Complies with drug therapy Calcium Carb-Cho lecalciferol (Oyster Shell Calcium w/D) 500-5 MG-MCG tablet Take by mouth Daily Active take 2.5 tablets by mouth once daily at lunch Calcium Carb-Cholecalciferol (CALCIUM 60 0 + D) 600-200 MG-UNIT Tab tablet Take 2.5 tablets by mouth Daily (with lunch). 0 Active calcium carbonate 1250 mg / cholecalciferol 1000 unt / vitamin k 0.4 mg chewable tablet (20 sources) Vitamin D End: 05-15-2025 Calcium-Vitamin D-Vitamin K (Calcium + D) 500-1000-40 MG-UNT-MCG chewable tablet 1 (one) time each day at the same time. 05/15/2025 Discontinued carvedilol 25 mg oral tablet (20 sources) alpha-Adrenergic Heidi, beta-Adrenergic Heidi Start: 11-14-2023 Carvedilol 25 mg tab let Active 25 MG PO May 01, 2025 12:00am Complies with drug therapy Start: 12-21-2022 take 1 tablet by thuy th twice daily carveDILOL 12.5 MG tablet Take 1 tablet by mouth 2 times daily. 0 12/21/2022 Active End: 07-31-2024 take 2 tablets by mouth every twelve hours carvedilol (Coreg) 12.5 MG tablet Take 25 mg by mouth every 12 (twelve) hours 07/31/2024 Discontinued carvedilol (Core g) 12.5 MG tablet every 12 (twelve) hours. Active cephalexin 500 mg oral capsule (5 sources) Cephalosporin Antibacterial Start: 01-10-2025 End: 01-20-2025 take 1 capsule by mouth in the morning, then take 1 capsule by mouth in the evening, then take 1 capsule by mouth at bedtime, then take 1 capsule by mouth three times daily cephalexin (Keflex) 500 MG capsule Indications: Cellulitis of left foot Take 1 capsule (500 mg) by mouth in the morning and 1 capsule (500 mg) in the evening and 1 capsule (500 mg) before bedtime. Do all this for 10 days. Take one tablet by mouth three times daily. 30 capsule 01/10/2025 01/20/2025 Active Chondroitin Sulfates / Glucosamine (20 sources) Glucosamine-David dr oitin (GLUCOSAMINE CHONDR COMPLEX PO) take 1 tablet by mouth daily.. 0 Active Glucosamine-David droitin (GLUCOSAMINE CHONDR COMPLEX PO) take 1 tablet by mouth daily.. Active clindamycin 300 mg oral capsule (7 sources) Lincosamide Antibacterial Start: 01-02-2025 End: 01-12-2025 take 1 capsule by mouth in the morning, then take 1 capsule by mouth in the evening, then take 1 capsule by mouth at bedtime clindamycin (Cleocin) 300 MG capsule Indications: Cellulitis of left foot Take 1 capsule (300 mg) by mouth in the morning and 1 capsule (300 mg) in the evening and 1 capsule (300 mg) before bedtime. Do all this for 10 days. 30 capsule 01/02/2025 01/12/2025 Active Start: 08-02-2024 End: 08-12-2024 take 1 capsule by mouth in the morning, then take 1 capsule by mouth in the evening, then take 1 capsule by mouth at bedtime clindamycin (Cleocin) 300 MG capsule Indications: Abscess of toe, right Take 1 capsule (300 mg) by mouth in the morning and 1 capsule (300 mg) in the evening and 1 capsule (300 mg) before bedtime. Do all this for 10 days. 30 capsule 08/02/2024 08/12/2024 Active clonazePAM 0.5 mg oral tablet (20 sources) Benzodiazepine Start: 07-01-2018 take 0.5-1 tablets by mouth at bedtime as needed clonazePAM 0.5 MG Tab tablet TAKE 1/2 TO 1 TABLET BY MOUTH AT BEDTIME NEEDED 1 07/01/2018 Active D-BIOTIN (18 sources) Biotin 85857 MCG Tab take 2 tablets by mouth 2 times daily.. 0 Active Biotin 27631 MCG Tab take 2 tablets by mouth [...] times daily October 01, 2020 10:38am 10-01-2020 [facility] ([id number]) 10/01/2020 Active Start: 10-01-2020 Diclofenac Sod ium 1 % Gel gel Diclofenac Diclofenac Sodium Active 4 GM Topical Four times daily October 01, 2020 10:38am 10-01-2020 [facility] ([id number]) 0 10/01/2020 Active Start: 10-01-2020 apply 4 g topically four times daily Diclofenac Sodium 1 % gel Active 4 GM TOPICAL Four times daily October 01, 2020 1:00am Complies with drug therapy Start: 10-01-2020 apply 4 g topically four [...] Active docusate sodium 50 mg / sennosides, residential 8.6 mg oral tablet (1 source) Start: 11-21-2018 senna-docusate (SENOKOT-S) 8.6-50 MG per tablet 2 tablet doxazosin 4 mg oral tablet (20 sources) alpha-Adrenerg ic Heidi Start: 12-30-2022 Doxazosin 4 mg table t Active 4 MG PO May 01, 2025 12:00am Complies with drug therapy Fish Oils (1 source) take 1 capsule by mouth once daily Fish Oil 1000 MG 1 capsule Orally Once a day for 30 day(s) Active folic acid 1 mg oral tablet (20 sources) Start: 10-01-2020 take 1 tablet by mouth once daily Folic Acid 1 mg tablet Active 1 MG PO Daily October 01, 2020 1:00am Complies with drug therapy glucosamine 500 mg oral tablet (1 source) [...] capsule Take by mouth daily. 0 Active Aqyinswlvbm-Tld-Pvbkpttpv-Vi tc (Glucosamine Complex-Msm) Capsule (6 sources) Start: 10-01-2020 take 1 capsule by mouth once daily Start: 10-01-2020 take 1 capsule by mouth once daily Yeoevpuiadl-Zyk-Aozajfwoz-Vitc (Glucosam ine Complex-Msm) Capsule Active 1 CAP PO Daily October 01, 2020 1:00am Complies with drug therapy Start: 10-01-2020 take 1 capsule by mouth once daily Qijeyzhimjk-Jiv-Hmbthgiop-Vitc (Glucosam ine Complex-Msm) Capsule Active 1 CAP PO Daily October 01, 2020 1:00am 1 ml hydrALAZINE hydrochloride 20 mg/ml injection (1 source) Arteriolar Vasodilator Start: 11-21-2018 take 10 mg intravenous route every six hours as needed hydrALAzine (APRESOLINE) injection 10 mg hydroCHLOROthiazide 25 mg / triamterene 37.5 mg oral tablet (20 sources) Potassium-sparin g Diuretic, Thiazide Diuretic Start: 05-07-2021 take 1 tablet by mouth once daily Triamterene-Hydr ochlorothiazid 37.5-25 mg Tablet Active 1 TAB PO Daily May 07, 2021 12:00am Complies with drug therapy Start: 11-21-2018 take 1 tablet by thuy th once daily 1 tablet, Oral, DAILY, First dose on Tue11/21/18 at 1230, Until Discontinued triamterene-hydr ochlorothiazide 37.5-25 MG Cap Take 1 capsule by mouth as needed (edema). Active triamterene-hydr ochlorothiazide (Maxzide-25) 37.5-25 MG tablet Active 1 ml HYDROmorphone hydrochloride 1 mg/ml cartridge (1 source) Opioid Agonist Start: 11-21-2018 take 0.5 mg intravenous route every four hours as needed HYDROmorphone (DILAUDID) injection 0.5 mg hydroxychloroquine sulfate 200 mg oral tablet (20 sources) Antimalarial, Antirheumatic Agent Start: 10-01-2020 take 1 tablet by mouth twice daily Hydroxychloroquine 200 mg Tablet Active 200 MG PO Twice daily October 01, 2020 1:00am Complies with drug therapy Start: 10-01-2020 End: 11-24-2018 take 200 mg by mouth twice daily Hydroxychloroquine Active 200 MG PO Twice daily October 01, 2020 1:00am take 1 tablet by thuy th in the morning hydroxychloroquine (Plaquenil) 200 MG tablet Take 200 mg by mouth in the morning and 200 mg before bedtime. Active ibandronic acid 150 mg oral tablet (20 sources) Bisphosphonate Start: 05-01-2025 Ibandronate 15 0 mg tablet Active 150 MG PO May 01, 2025 12:00am Complies with drug therapy Start: 10-01-2020 End: 05-07-2021 take 1 tablet by mouth every month Ibandronate 150 mg tablet Discontinued 150 MG PO every month October 01, 2020 1:00am May 07, 2021 11:16am Start: 09-10-2016 take 1 tablet by thuy th every 30 days ibandronate 150 MG Tab Take 1 tablet by mouth every 30 days. 09/10/2016 Active leflunomide 20 mg oral tablet (20 sources) Antirheumatic Agent Start: 10-01-2020 take 1 tablet by mouth once daily Leflunomide 20 mg tablet Active 20 MG PO Daily October 01, 2020 1:00am Complies with drug therapy Start: 10-03-2016 End: 11-24-2018 leflunomide 20 MG Tab take 2 0 mg by mouth at bedtime.. 10/03/2016 11/24/2018 Discontinued lisinopril 40 mg oral tablet (20 sources) Angiotensin Converting Enzyme Inhibitor Start: 05-01-2025 Lisinopril 40 mg tablet Active 40 MG PO May 01, 2025 12:00am Complies with drug therapy Start: 10-01-2020 take 1 tablet by thuy th once daily Lisinopril 10 mg tablet Active 10 MG PO Daily October 01, 2020 1:00am Complies with drug therapy meloxicam 7.5 mg oral tablet (18 sources) Nonsteroidal Anti-inflammatory Drug Start: 11-29-2023 take [...] EVERY WEEK 0 10/03/2020 Active Start: 10-01-2020 take 6 tablets by mo uth every week Methotrexate Sodium 2.5 mg Tablet Active 12.5 MG PO Q7D October 01, 2020 1:00am 6 one day a week on Tuesday Complies with drug therapy Start: 10-01-2020 Methotrexate S odium Active 12.5 MG PO Q7D October 01, 2020 1:00am 6 one day a week on Tuesday End: 11-24-2018 methotrexate 2.5 MG tablet e very 7 days. Active methylPREDNISolone (20 sources) Corticosteroid Start: 02-21-2023 methylPREDNIso lone 4 MG Tab Therapy Pack tablet as needed. 02/21/2023 Active Start: 02-21-2023 methylPREDNISo lone (Medrol Dospak) 4 MG tablets TAKE DIRECTED 02/21/2023 Active Start: 02-21-2023 methylPREDNIso lone 4 MG Tab Therapy Pack tablet As directed. 0 02/21/2023 Active Multiple Vitamin (multivitamin) tablet (20 sources) take 1 tablet by thuy th [...] 2020 1:00am Multivitamin as directed Orally Active Multivitamin Tablet (5 sources) Start: 10-01-2020 take 1 tablet by mouth once da robert Start: 10-01-2020 take 1 tablet by thuy th once daily Multivitamin Tablet Active 1 TAB PO Daily October 01, 2020 1:00am Complies with drug therapy 2 ml ondansetron 2 mg/ml injection (1 [...] sources) Proton Pump Inhibitor Start: 11-21-2018 take 1 tablet by mouth once daily Pantoprazole 40 mg tablet,delayed release (DR/EC) Active 40 MG PO Daily October 01, 2020 1:00am Complies with drug therapy predniSONE 5 mg oral tablet (20 sources) Start: 05-07-2021 take 1 tablet by mouth twice daily as needed for pain, then take 1-2 tablets by mouth once daily as needed for pain Prednisone 5 mg Tablet Active 5 MG PO Twice daily as needed for Pain May 07, 2021 12:00am Dr Monaco placed on. 1-2 as needed per day Complies with drug therapy psyllium 520 mg oral capsule (20 sources) Start: 05-07-2021 Psyllium Husk (Metamucil) 0.52 gram Capsule Active 0.52 GM PO Daily May 07, 2021 12:00am Complies with drug therapy take 1 dose by mouth once daily [...] 1 enema sucralfate 1000 mg oral tablet (18 sources) Aluminum Complex Start: 11-29-2023 take 1 tablet by mouth twice daily Sucralfate 1 g tablet Take 1 tablet by mouth 2 times daily. 60 tablet 11/29/2023 Active Start: 04-26-2023 take 1 tablet by thuy th twice daily Sucralfate 1 g tablet Take 1 tablet by mouth 2 times daily. While on NSAID therapy 84 tablet 0 04/26/2023 Active therapeutic multivitamin-minerals tablet (18 sources) Start: 11-29-2023 take 1 tablet by mouth at bedtime therapeutic multivitamin-minerals tablet Take 1 tablet by mouth at bedtime. 30 tablet 11/29/2023 Active Start: 04-26-2023 take 1 tablet by thuy th at bedtime therapeutic multivitamin-minerals tablet Take 1 tablet by mouth at bedtime. 30 tablet 0 04/26/2023 Active thioctic acid 200 mg oral tablet (20 sources) Start: 10-01-2020 take 1 tablet by mouth once daily Alpha Lipoic Acid 200 mg Tablet Active 200 MG PO Daily October 01, 2020 1:00am Complies with drug therapy End: 07-31-2024 Alpha-Lipoic Acid 200 MG cap césar 1 capsule daily. Active tiZANidine 4 mg oral tablet (20 sources) Central alpha-2 Adrenergic Agonist Start: 05-01-2025 Tizanidine 4 mg tablet Active 4 MG PO May 01, 2025 12:00am Complies with drug therapy traMADol hydrochloride 50 mg oral tablet (20 sources) Opioid Agonist Start: 07-27-2023 take 1 tablet by mouth three times daily as needed for pain traMADol 50 MG tablet Take 1 tablet by mouth 3 times daily as needed for Pain. 07/27/2023 Active Start: 10-01-2020 take 1 tablet by thuy twice daily as needed for pain Tramadol 50 mg Tablet Active 50 MG PO Twice daily as needed for Pain October 01, 2020 1:00am Complies with drug therapy Start: 11-03-2017 End: 11-24-2018 traMADol 50 MG Tab tablet TA KE 1 TABLET TWICE A DAY NEEDED 2 11/03/2017 11/24/2018 Discontinued triamcinolone acetonide 0.25 mg/ml topical cream (12 sources) Corticosteroid Start: 05-07-2021 Triamcinolone Acetonide 0.025 % Cream Active 1 APPLIC TOPICAL Twice daily May 07, 2021 12:00am Complies with drug therapy Start: 03-11-2021 End: 03-11-2021 triamcinolone (KENALOG-40) i njection 1 mL Start: 11-19-2020 End: 11-19-2020 triamcinolone (KENALOG-40) i njection 1 mL Start: 11-21-2019 End: 11-21-2019 triamcinolone (KENALOG-40) i njection 1 mL Start: 11-21-2019 End: 11-21-2019 triamcinolone (KENALOG-40) i njection 1 mL TURMERIC CURCUMIN PO (4 sources) TURMERIC CURCUMI N PO Take by mouth. 0 Active Turmeric Root Extract (20 sources) Start: 05-07-2021 take 1 capsule by mouth once daily Start: 05-07-2021 take 1 capsule by mo [facility] once daily Turmeric Root Extract 500 mg Capsule Active 500 MG PO Daily May 07, 2021 12:00am Complies with drug therapy Start: 05-07-2021 take 500 mg by mouth once nikkie y Turmeric Root Extract Active 500 MG PO Daily May 07, 2021 12:00am Turmeric 500 MG capsule as directed Orally Active TURMERIC PO as d irected Orally Active TURMERIC PO as d irected Orally 0 Active zolpidem tartrate 5 mg oral tablet (1 source) gamma-Aminobutyric Acid-ergic Agonist Start: 11-21-2018 zolpidem (AMBIEN) tablet 5 mg Completed/Discontinued Medications Medication Drug Class(es) Dates Sig (Normalized) Sig (Original) baclofen 10 mg oral tablet (20 sources) gamma-Aminobutyri c Acid-ergic Agonist Start: 11-21-2018 take 20 mg by mouth three times daily as needed 20 mg, Oral, 3 TIMES DAILY NEEDED, Starting Tue11/21/18 at 1145, Until Discontinued, Muscle spasms take 2 tablets by mo [facility] three times daily as needed baclofen 10 [...] mg ferrous sulfate 325 mg oral tablet (12 sources) Start: 10-01-2020 End: 05-07-2021 take 1 tablet by mouth twice daily Ferrous Sulfate 325 mg (65 mg iron) Tablet Discontinued 325 MG PO Twice daily October 01, 2020 1:00am May 07, 2021 11:17am take 1 tablet by thuy twice daily as needed ferrous sulfate 325 (65 Fe) MG Tab DR tablet Take 325 mg by mouth 2 times daily as needed. 0 Active 1 ml ketorolac tromethamine 15 mg/ml [...] OXcarbazepine 150 mg oral tablet (3 sources) Anti-epilepti c Agent Start: 01-03-2018 End: 11-24-2018 OXcarbazepine 150 MG Tab pregabalin 25 mg oral capsule (20 sources) Start: 05-01-2025 End: 06-17-2025 take 1 capsule by mouth twice daily Pregabalin 25 mg capsule Discontinued 25 MG PO Twice daily 60 30 June 17, 2025 4:25pm June 17, 2025 6:17pm Start: 10-22-2024 End: 01-20-2025 take 2 capsules by mouth in the morning pregabalin (Lyrica) 25 MG capsule Indications: Paresthesias , Spinal stenosis of lumbar region, unspecified whether neurogenic claudication present Take 2 capsules (50 mg) by mouth in the morning and 2 capsules (50 mg) before bedtime. 60 capsule 2 10/22/2024 10/24/2024 Discontinued (Reorder) Start: 10-15-2024 End: 10-15-2025 take 1 capsule by mouth in the morning pregabalin (Lyrica) 50 MG capsule Indications: Paresthesias , Spinal stenosis of lumbar region, unspecified whether neurogenic claudication present Take 1 capsule (50 mg) by mouth in the morning and 1 capsule (50 mg) before bedtime. 60 capsule 2 10/15/2024 10/22/2024 Discontinued (Reorder) Start: 02-15-2023 End: 06-19-2025 take 1 capsule by mouth in the morning pregabalin (Lyrica) 25 MG capsule Indications: Paresthesias , Spinal stenosis of lumbar region, unspecified whether neurogenic claudication present Take 1 capsule (25 mg) by mouth in the morning and 1 capsule (25 mg) before bedtime. Do not start before March 21, 2025. 60 capsule 2 03/21/2025 Active ropivacaine (NAROPIN) 1 % 400 mg, EPINEPHrine [...] with overfill 287.5 mL (total volume) IVPB zonisamide 100 mg oral capsule (20 sources) Anti-epileptic Agent Start: 10-01-2020 End: 05-01-2025 take 1 capsule by mouth at bedtime Zonisamide 100 mg capsule Discontinued 100 MG PO Bedtime October 01, 2020 1:00am May 01, 2025 9:54am Problems Active Problems Problem Classification Problem Date Documented Date Episodic/Chronic Acquired foot deformities (20 sources) Acquired deformity of toe of left foot; Translations: [Acquired deformities of toe(s), unspecified, left foot] 08-12-2024 Episodic Cataract (20 sources) After-cataract of left eye; Translations: [Other secondary cataract, left eye] Onset: 07-13-2023 Resolved: 07-31-2024 07-31-2024 Chronic Chronic ulcer of skin (4 sources) Non-pressure chronic ulcer of other part of left foot with fat layer exposed; Translations: [Ulcer of other part of foot] 01-10-2025 Chronic Deficiency and other anemia (6 sources) Iron deficiency anemia; Translations: [Iron deficiency anemia, unspecified] 05-07-2021 Episodic Diseases of white blood cells (6 sources) Leukopenia; Translations: [Decreased white blood cell count, [...] migraine; Translations: [HEADACHE UNSPECIFIED] Onset: 04-20-2022 Mycoses (5 sources) Pain in toe; Translations: [Tinea unguium] 08-31-2024 [...] 08-27-2022 Chronic Other aftercare (1 source) Other alf (current) drug therapy; Translations: [OTH ADMITTING OFFICER CURRENT DRUG THERAPY] Onset: 02-12-2023 Episodic Other circulatory disease (18 sources) Raynaud's phenomenon; Translations: [Raynaud's syndrome without gangrene] Onset: 04-20-2023 04-20-2023 Chronic Other connective tissue disease (18 sources) History of total knee arthroplasty; Translations: [Presence of unspecified artificial knee joint] Onset: 11-30-2023 11-30-2023 Chronic Other connective tissue disease (3 sources) History of right total knee replacement; Translations: [Presence of right artificial knee joint] 05-11-2023 Chronic Other connective tissue disease (3 sources) History of left total knee replacement; Translations: [Presence of left artificial knee joint] 08-30-2023 Chronic Other connective tissue disease (2 sources) Presence of left artificial knee joint; Translations: [Presence of left artificial knee joint] Onset: 11-28-2024 Chronic Other connective tissue disease (2 sources) Presence of right artificial knee joint; Translations: [Presence of right artificial knee joint] Onset: 11-28-2024 Chronic Other connective tissue disease (1 source) Disorder of tendon; Translations: [Extensor mechanism malalignment] Episodic Other connective tissue disease (4 sources) Pain of toe of right foot; Translations: [Pain in right toe(s)] 07-18-2024 Episodic Other hematologic conditions (6 sources) 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; Translations: [Other specified diseases of blood and blood-forming organs] 10-01-2020 Chronic Other hereditary and degenerative nervous system conditions (20 sources) Blepharospasm; 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] Onset: 04-24-2024 04-24-2024 Chronic Other nervous system disorders (20 sources) Peripheral nerve disease ; Translations: [Polyneuropathy, unspecified] Onset: 04-24-2024 04-24-2024 Chronic Other nervous system disorders (20 sources) Small fiber neuropathy; Translations: [Polyneuropathy, unspecified] Onset: 04-24-2024 04-24-2024 Chronic Other nervous system disorders (20 sources) Polyneuropathy; Translations: [Polyneuropathy, unspecified] Onset: 04-24-2024 04-24-2024 Chronic Other nervous system disorders (15 sources) Bilateral carpal tunnel syndrome; Translations: [Carpal tunnel syndrome, bilateral upper limbs] 10-23-2024 Chronic Other non-traumatic joint disorders (2 sources) [...] conditions (not mental disorders or infectious disease) (7 sources) Encounter for screening for malignant neoplasm of colon; Translations: [Encounter for screening mammogram for malignant neoplasm of breast] Onset: 08-31-2022 Episodic Other skin disorders (4 sources) Ingrowing nail; Translations: [Ingrowing nail] 07-18-2024 Episodic Peripheral and visceral atherosclerosis (20 sources) Peripheral vascular disease; Translations: [Peripheral vascular disease, unspecified] Onset: 04-24-2024 04-24-2024 Chronic Retinal detachments; defects; vascular occlusion; and retinopathy (20 sources) Nonexudative age-related macular degeneration; Translations: [Nonexudative age-related macular degeneration, bilateral, intermediate dry stage] Onset: 07-13-2023 07-13-2023 Chronic Rheumatoid arthritis and related disease (20 sources) Rheumatoid arthritis; Translations: [Rheumatoid arthritis, unspecified] Onset: 2017 2017 Chronic Skin and subcutaneous tissue infections (20 sources) Cellulitis of left axilla; Translations: [Cellulitis [...] tissue disease] Onset: 02-08-2023 Chronic Thyroid disorders (18 sources) Hyperthyroidism; Translations: [Thyrotoxicosis, unspecified without thyrotoxic crisis or storm] Onset: 04-20-2023 04-20-2023 Chronic Unclassified (2 sources) Preprocedural examination done; Translations: [Pre-op exam] Unclassified (1 source) History of left total knee replacement; Translations: [Hx of total knee arthroplasty, left] Unclassified (1 source) Decreased white blood cell count, unspecified; Translations: [Decreased white blood cell count, unspecified] Onset: 05-07-2021 Urinary tract infections (18 sources) Chronic cystitis; Translations: [Other chronic cystitis without hematuria] Onset: 04-20-2023 04-20-2023 Chronic Past or Other Problems Problem Classification Problem Date Documented Da te Episodic/Chronic Conditions associated with dizziness or vertigo (20 sources) Dizziness; Translations: [Dizziness and giddiness] Onset: [...] that caused by tuberculosis or sexually transmitteddisease) (20 sources) 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; Translations: [Unspecified blepharitis right eye, upper and lower eyelids] Onset: 07-13-2023 07-13-2023 Episodic Medical examination/evaluation (2 sources) Encounter for other preprocedural examination; Translations: [Encounter for other preprocedural examination] Onset: 07-01-2017 Episodic Other acquired deformities (20 sources) Spondylolisthesis; Translations: [Spondylolisthesis, site unspecified] Onset: 04-24-2024 04-24-2024 Episodic Other aftercare (20 sources) Drug therapy finding; Translations: [Other alf (current) drug therapy] Onset: 07-31-2024 07-31-2024 Episodic Other bone disease and musculoskeletal deformities (1 source) Other specified disorders of bone density and structure, unspecified site; Translations: [OTH D/O BONE DEN STRUCT UNS SITE] Onset: 09-01-2022 Episodic Other bone disease and musculoskeletal deformities (20 sources) Osteopenia; Translations: [Other specified disorders of [...] 11-21-2018 11-21-2018 Episodic Other connective tissue disease (20 sources) Fibromyalgia; Translations: [Fibromyalgia] Onset: 04-24-2024 04-24-2024 Episodic Other connective tissue disease (20 sources) Weakness of face muscles; Translations: [Facial weakness] Onset: 04-24-2024 04-24-2024 Episodic Other connective tissue disease (20 sources) Spasm; Translations: [Other muscle spasm] Onset: 04-24-2024 04-24-2024 Episodic Other connective tissue disease (1 source) Pain of toes of bilateral feet; Translations: [Pain in right toe(s)] 06-24-2024 Episodic Other eye disorders (20 sources) Dry eyes; Translations: [Dry eye syndrome of bilateral lacrimal glands] Onset: 07-13-2023 07-13-2023 Episodic Other nervous system disorders (20 sources) Trigeminal neuralgia; Translations: [Trigeminal neuralgia] Onset: 04-24-2024 04-24-2024 Episodic Other nervous system disorders (20 sources) Hemifacial spasm; Translations: [Clonic hemifacial spasm, unspecified] Onset: 04-24-2024 04-24-2024 Episodic Other nervous system disorders (20 sources) Skin sensation disturbance; Translations: [Unspecified disturbances of skin sensation] Onset: 04-24-2024 04-24-2024 Episodic Other nervous system disorders (20 sources) Paresthesia; Translations: [Paresthesia of skin] Onset: 04-24-2024 04-24-2024 Episodic Other non-traumatic joint disorders (20 sources) Pain in left knee; Translations: [Pain in left knee] Onset: 11-21-2018 11-21-2018 Episodic Other non-traumatic joint disorders (10 sources) Pain in right knee; Translations: [Pain in right knee] Onset: 05-31-2024 Episodic Residual codes; unclassified (1 source) Family history of malignant neoplasm of digestive organs; Translations: [[facility] NEOPLASM DIGESTIV ORGN] Onset: 09-05-2022 Episodic Residual codes; unclassified (1 source) Family history of malignant neoplasm of other organs or systems; Translations: [FAM HX MALIG NEOPLASM OTH ORGN/SYS] Onset: 09-05-2022 Episodic Sprains and strains (20 sources) Strain of other muscle(s) and tendon(s) at lower leg level, unspecified leg, subsequent encounter; Translations: [Rupture of patellar tendon] Onset: 07-18-2017 2017 Episodic Unclassified (14 sources) Onset: 11-24-2018 Resolved: 12-02-2023 11-24-2018 Results Test Name Value Interpretation Reference Range Facility Optical coherence tomography study reporton 05-15-2025 [facility] Study observation (narrative) [facility] Perimetry studyon 05-15-2025 [facility] Radiology Study observation (narrative) [facility] XR Foot - left 3 [facility] Result: K-wire fixation intact with PIPJ arthrodesis site intact to the 3rd digit with rectus 3rd digit noted [facility] Study observation (narrative) [facility] EMG 2 Extremitieson 10-23-20 24 Carpal tunnel bilaterally. Moderate left and minimal right. C8 radiculopathy bilaterally which is mild in degree electrically [facility] NVC 11-12 Nerveson 4 Carpal tunnel bilaterally. Moderate left and minimal right. C8 radiculopathy bilaterally which is mild in degree electrically [facility] Optical coherence tomography study reporton 08-01-2024 [facility] Optical coherence tomography study reporton 07-31-2024 Radiology Study observation (narrative) [facility] Perimetry studyon 07-31-2024 [facility] Study observation (narrative) [facility] CBCon 12-02-2023 ABSOLUTE BAS 0.0 10*3/uL Normal 0.0-0.2 [facility] Comment on above: Performed By: #### A CBC #### Testing performed at [address] [address] ABSOLUTE EOS 0.0 10*3/uL Normal 0.0-0.7 [facility] Comment on above: Performed By: #### A CBC #### Testing performed at [address] [address] ABSOLUTE NEUTROPHIL COUNT 2.4 10*3/uL Normal 1.4-6.5 [facility] Comment on above: Performed By: #### A CBC #### Testing performed at [address] [address] Basophils/100 WBC (Bld) 0.3 % Normal 0.0-2.0 [facility] Comment on above: Performed By: #### A CBC #### Testing performed at [address] [address] DTYPE AUTO DIFF Normal [facility] Comment on above: Performed By: #### A CBC #### Testing performed at [address] [address] Eosinophils/100 WBC (Bld) 0.9 % Normal 0.0-11.0 [facility] Comment on above: Performed By: #### A CBC #### Testing performed at [address] [address] Lymphocytes (Bld) [#/Vol] 0.6 10*3/uL Low 1.2-3.4 [facility] Comment on above: Performed By: #### A CBC #### Testing performed at [address] [address] Lymphocytes/100 WBC (Bld) 17.6 % Low 20.0-55.0 [facility] Comment on above: Performed By: #### A CBC #### Testing performed at [address] [address] Monocytes (Bld) [#/Vol] 0.5 10*3/uL Normal 0.0-0.7 [facility] Comment on above: Performed By: #### A CBC #### Testing performed at [address] [address] Monocytes/100 WBC (Bld) 14.6 % High 0.0-10.0 [facility] Comment on above: Performed By: #### A CBC #### Testing performed at [address] [address] Neutrophils/100 WBC (Bld) 66.6 % Normal 37.0-75.0 [facility] Comment on above: Performed By: #### A CBC #### Testing performed at [address] [address] Erythrocyte distribution width (RBC) [Ratio] 14.2 % Normal 11.5-14.5 [facility] Comment on above: Performed By: #### A CBC #### Testing performed at [address] [address] Hematocrit (Bld) [Volume fraction] 27.6 % Low 36.0-48.0 [facility] Comment on above: Performed By: #### A CBC #### Testing performed at [address] [address] Hemoglobin (Bld) [Mass/Vol] 9.2 g/dL Low 12.0-16.0 [facility] Comment on above: Performed By: #### A CBC #### Testing performed at [address] [address] MCH (RBC) [Entitic mass] 34.3 pg Normal 26.0-35.0 [facility] Comment on above: Performed By: #### A CBC #### Testing performed at [address] [address] MCHC (RBC) [Mass/Vol] 33.4 g/dL Normal 27.0-37.0 [facility] Comment on above: Performed By: #### A CBC #### Testing performed at [address] [address] MCV (RBC) [Entitic vol] 102.5 fL High 80.0-100.0 [facility] Comment on above: Performed By: #### A CBC #### Testing performed at [address] [address] Platelet mean volume (Bld) [Entitic vol] 7.3 fL Low 7.4-11.0 [facility] Comment on above: Performed By: #### A CBC #### Testing performed at [address] [address] Platelets (Bld) [#/Vol] 165 10*3/uL Normal 130-400 [facility] Comment on above: Performed By: #### A CBC #### Testing performed at [address] [address] RBC (Bld) [#/Vol] 2.69 10*6/uL Low 4.0-5.4 [facility] Comment on above: Performed By: #### A CBC #### Testing performed at [address] [address] WBC (Bld) [#/Vol] 3.6 10*3/uL Normal 3.6-11.0 [facility] Comment on above: Performed By: #### A CBC #### Testing performed at [address] [address] BMP FASTINGon 12-01-2023 Anion gap [Moles/Vol] 7 mmol/L Normal [facility] Comment on above: Performed By: #### B MPF, ACBC #### Testing performed at [address] [address] Calcium [Mass/Vol] 8.4 mg/dL Normal 8.4-10.2 [facility] Comment on above: Performed By: #### B MPF, ACBC #### Testing performed at [address] [address] Chloride [Moles/Vol] 106 mmol/L Normal 98-107 [facility] Comment on above: Result Comment: Plea note: Triglyceride levels of 600mg/dL or higher may positively bias chloride results by approximately 2.1 mmol Performed By: #### B MPF, ACBC #### Testing performed at [place] [id number] CO2 [Moles/Vol] 23 mmol/L Normal 22-30 [facility] Comment on above: Performed By: #### B MPF, ACBC #### Testing performed at [place] [id number] Creatinine [Mass/Vol] 0.50 mg/dL Low 0.70-1.20 [facility] Comment on above: Performed By: #### B MPF, ACBC #### Testing performed at [address] [address] EST. GFR, 157 ml/min/1.73sq.m [facility] Comment on above: Performed By: #### B MPF, ACBC #### Testing performed at [place] [id number] EST. GFR,Non 130 ml/min/1.73sq.m [facility] Comment on above: Performed By: #### B MPF, ACBC #### [place] [address] GFR Information Average GFR for 70+ years old = 75. Normal [facility] Comment on above: Result Comment: [employer] arnie Kidney disease, GFR = <60. Kidney failure, GFR = <15. The GFR estimate is not adjusted for extreme body surface area or acute process, nor has it been validated for women or ethnic groups other than and . Performed By: #### B MPF, ACBC #### Testing performed at [address] [address] Glucose [Mass/Vol] 125 mg/dL High 70-100 [facility] Comment on above: Result Comment: NORMAL <100 mg/dL PREDIABETES 101-126 mg/dL DIABETES 126 mg/dL or higher Performed By: #### B MPF, ACBC #### Testing performed at [place] [id number] Potassium [Moles/Vol] 3.4 mmol/L Low 3.5-5.1 [facility] Comment on above: Performed By: #### B MPF, ACBC #### Testing performed at [address] [address] Sodium [Moles/Vol] 136 mmol/L Low 137-145 [facility] Comment on above: Performed By: #### B MPF, ACBC #### Testing performed at [address] [address] Urea nitrogen [Mass/Vol] 15 mg/dL Normal 7-20 [facility] Comment on above: Performed By: #### B MPF, ACBC #### Testing performed at [address] [address] CBCon 12-01-2023 ABSOLUTE BAS 0.0 10*3/uL Normal 0.0-0.2 [facility] Comment on above: Performed By: #### B MPF, ACBC #### Testing performed at [address] [address] ABSOLUTE EOS 0.0 10*3/uL Normal 0.0-0.7 [facility] Comment on above: Performed By: #### B MPF, ACBC #### Testing performed at [address] [address] ABSOLUTE NEUTROPHIL COUNT 4.1 10*3/uL Normal 1.4-6.5 [facility] Comment on above: Performed By: #### B MPF, ACBC #### Testing performed at [address] [address] Basophils/100 WBC (Bld) 0.1 % Normal 0.0-2.0 [facility] Comment on above: Performed By: #### B MPF, ACBC #### Testing performed at [address] [address] DTYPE AUTO DIFF Normal [facility] Comment on above: Performed By: #### B MPF, ACBC #### Testing performed at [address] [address] Eosinophils/100 WBC (Bld) 0.0 % Normal 0.0-11.0 [facility] Comment on above: Performed By: #### B MPF, ACBC #### Testing performed at [address] [place] [address] Erythrocyte distribution width (RBC) [Ratio] 14.3 % Normal 11.5-14.5 [facility] Comment on above: Performed By: #### B MPF, ACBC #### Testing performed at [address] [place] [address] Hematocrit (Bld) [Volume fraction] 30.1 % Low 36.0-48.0 [facility] Comment on above: Performed By: #### B MPF, ACBC #### Testing performed at [address] [address] Hemoglobin (Bld) [Mass/Vol] 10.3 g/dL Low 12.0-16.0 [facility] Comment on above: Performed By: #### B MPF, ACBC #### Testing performed at [address] [address] Lymphocytes (Bld) [#/Vol] 0.4 10*3/uL Low 1.2-3.4 [facility] Comment on above: Performed By: #### B MPF, ACBC #### Testing performed at [address] [address] Lymphocytes/100 WBC (Bld) 8.1 % Low 20.0-55.0 [facility] Comment on above: Performed By: #### B MPF, ACBC #### Testing performed at [address] [address] MCH (RBC) [Entitic mass] 34.6 pg Normal 26.0-35.0 [facility] Comment on above: Performed By: #### B MPF, ACBC #### Testing performed at [address] [place] [address] MCHC (RBC) [Mass/Vol] 34.2 g/dL Normal 27.0-37.0 [facility] Comment on above: Performed By: #### B MPF, ACBC #### Testing performed at [address] [place] [address] MCV (RBC) [Entitic vol] 101.3 fL High 80.0-100.0 [facility] Comment on above: Performed By: #### B MPF, ACBC #### Testing performed at [address] [address] Monocytes (Bld) [#/Vol] 0.4 10*3/uL Normal 0.0-0.7 [facility] Comment on above: Performed By: #### B MPF, ACBC #### Testing performed at [address] [address] Monocytes/100 WBC (Bld) 8.1 % Normal 0.0-10.0 [facility] Comment on above: Performed By: #### B MPF, ACBC #### Testing performed at [address] [address] Neutrophils/100 WBC (Bld) 83.7 % High 37.0-75.0 [facility] Comment on above: Performed By: #### B MPF, ACBC #### Testing performed at [address] [address] Platelet mean volume (Bld) [Entitic vol] 7.3 fL Low 7.4-11.0 [facility] Comment on above: Performed By: #### B MPF, ACBC #### Testing performed at [address] [address] Platelets (Bld) [#/Vol] 181 10*3/uL Normal 130-400 [facility] Comment on above: Performed By: #### B MPF, ACBC #### Testing performed at [address] [address] RBC (Bld) [#/Vol] 2.97 10*6/uL Low 4.0-5.4 [facility] Comment on above: Performed By: #### B MPF, ACBC #### Testing performed at [address] [address] WBC (Bld) [#/Vol] 4.9 10*3/uL Normal 3.6-11.0 [facility] Comment on above: Performed By: #### B MPF, ACBC #### Testing performed at [address] [address] CBC, EDIF, PLATELETon 2022 ABSOLUTE BASOPHIL COUNT 0.0 10*3/uL 0.0 - 0.2 10*3/uL [facility] Basophils/100 WBC (Bld) 0.3 % 0.0 - 2.0 % [facility] Differential cell count method Nom (Bld) AUTO DIFF % [facility] Eosinophils (Bld) [#/Vol] 0.1 10*3/uL 0.0 - 0.7 10*3/uL [facility] Eosinophils/100 WBC (Bld) 1.8 % 0.0 - 11.0 % [facility] Erythrocyte distribution width (RBC) [Ratio] 14.5 % 11.5 - 14.5 % [facility] Hematocrit (Bld) [Volume fraction] 34.7 % Low 36.0 - 48.0 % [facility] Hemoglobin (Bld) [Mass/Vol] 11.3 g/dL Low [facility] Interpretation and review of laboratory results Abnormal [facility] Lymphocytes (Bld) [#/Vol] 0.4 10*3/uL Low 1.2 - 3.4 10*3/uL [facility] Lymphocytes/100 WBC (Bld) 11.1 % Low 20.0 - 55.0 % [facility] MCH (RBC) [Entitic mass] 33.4 pg 26.0 - 35.0 PG [facility] MCHC (RBC) [Mass/Vol] 32.4 g/dL [facility] MCV (RBC) [Entitic vol] 103.1 fL High [facility] Monocytes (Bld) [#/Vol] 0.4 10*3/uL 0.0 - 0.7 10*3/uL [facility] Monocytes/100 WBC (Bld) 11.1 % High 0.0 - 10.0 % [facility] Neutrophils (Bld) [#/Vol] 2.6 10*3/uL 1.4 - 6.5 10*3/uL [facility] Neutrophils/100 WBC (Bld) 75.7 % High 37.0 - 75.0 % [facility] Platelet mean volume (Bld) [Entitic vol] 7.2 fL Low [facility] Platelets (Bld) [#/Vol] 175 10*3/uL 130 - 400 10*3/uL [facility] RBC (Bld) [#/Vol] 3.37 10*6/uL Low 4.0 - 5.4 10*6/uL [facility] WBC (Bld) [#/Vol] 3.5 10*3/uL Low 3.6 - 11.0 10*3/uL [facility] COMPREHENSIVE METABOLIC PANE Adolph 11-03-2023 Albumin [Mass/Vol] 3.8 G/dl 3.5 - 5.0 G/dl [facility] Albumin/Globulin [Mass ratio] 1.7 {ratio} RATIO [facility] ALP [Catalytic activity/Vol] 61 U/L [facility] ALT [Catalytic activity/Vol] 26 U/L NINF [facility] AST [Catalytic activity/Vol] 36 U/L [facility] Bilirubin [Mass/Vol] 0.7 mg/dL [facility] Calcium [Mass/Vol] 9.4 mg/dL [facility] Chloride [Moles/Vol] 104 mmol/L [facility] Comment on above: Please note: Triglyc eride levels of 600mg/dL or higher may positively bias chloride results by approximately 2.1 mmol CO2 [Moles/Vol] 28 mmol/L [facility] Creatinine [Mass/Vol] 0.60 mg/dL Low [facility] GFR COMMENT Average GFR for 70+ years old = 75. [facility] Comment on above: Chronic Kidney disea se, GFR = <60. Kidney failure, GFR = <15. The GFR estimate is not adjusted for extreme body surface area or acute process, nor has it been validated for women or ethnic groups other than and . GFR/1.73 sq M.predicted among blacks MDRD (S/P/Bld) [Vol rate/Area] 127 mL/min/{1.73_m2} ml/min/1.73sq .m [facility] GFR/1.73 sq M.predicted among non-blacks MDRD (S/P/Bld) [Vol rate/Area] 105 mL/min/{1.73_m2} ml/min/1.73sq .m [facility] Glucose post fast [Mass/Vol] 91 mg/dL [facility] Comment on above: NORMAL <100 mg/dL PREDIABETES 101-126 mg/dL DIABETES 126 mg/dL or higher Interpretation and review of laboratory results Abnormal [facility] Potassium [Moles/Vol] 3.9 mmol/L [facility] Protein [Mass/Vol] 6.1 g/dL Low [facility] Sodium [Moles/Vol] 135 mmol/L Low [facility] Urea nitrogen [Mass/Vol] 12 mg/dL [facility] ECGOrdered By: Delgado da silva on 11-03-2023 [facility] Work Phone: [id number] A1Con 11-03-2023 Glucose [Mass/Vol] 100 mg/dL [facility] HbA1c (Bld) [Mass fraction] 5.1 % 0 - 6 % [facility] Comment on above: NORMAL <5.7% PREDIABETES 5.7-6.4% DIABETES 6.5% OR HIGHER [facility] PROTIME-INRon 11-03-2023 INR Coag (PPP) [Relative time] 0.94 {INR} 0.85 - 1.10 [facility] Comment on above: 2.0-3.0 THERAPEUTIC RANGE 2.5-3.5 MECHANICAL VALVE RANGE PT Coag (PPP) [Time] 12.7 s [facility] SCREEN: MRSA ONLY, NARES (IS OLATION SCREEN)on 11-03-2023 MRSA isol Org specific cx Ql (Nose) Negative NEGATIVE [facility] STAPHYOCOCCUS AUREUS BY PCR Negative NEGATIVE [facility] Comment on above: TESTING PERFORMED BY PCR [facility] URINALYSIS, MACROon 11-03-20 23 Bilirubin Ql (U) Negative NEGATIVE [facility] Clarity (U) CLEAR CLEAR [facility] Color (U) YELLOW YELLOW [facility] Glucose Test strip (U) [Mass/Vol] Negative NEGATIVE mg/dl [facility] Hemoglobin Ql (U) Negative NEGATIVE [facility] Ketones (U) [Mass/Vol] Negative NEGATIVE mg/dl [facility] Leukocyte esterase Test strip Ql (U) Negative NEGATIVE [facility] Nitrite Ql (U) Negative NEGATIVE [facility] pH (U) 7.0 [pH] 5.0 - 7.0 [facility] Protein Ql (U) Negative NEGATIVE mg/dl [facility] Specific gravity (U) [Rel density] 1.015 1.010 - 1.025 [facility] Urobilinogen (U) [Mass/Vol] 0.2 mg/dL [facility] C3 and C4 COMPLEMENTon 02-09 Complement C3, Serum 140 mg/dL Normal 82-167 [facility] Comment on above: Performed By: #### L IVER, LIPID, TSH, FT3, T4 #### [facility] [address] [place] [address] Dr. Frank Hills Complement C4, Serum 36 mg/dL Normal 12-38 [facility] Comment on above: Performed By: #### L IVER, LIPID, TSH, FT3, T4 #### [facility] [address] [place] [address] Dr. Frank Hills COMPLEMENT TOTAL (CH50)on Complement, Total (CH50) >60 Normal >41 [facility] Comment on above: Result Comment: Age [...] values. Performed By: #### C H50T #### [facility] [address] [place] [address] Dr. Frank Hills CBC AUTO DIFFon 02-08-2023 BASO # 0.0 103/ul Normal 0.0-0.1 [facility] Comment on above: Performed By: #### C BC #### [facility] [address] [place] [address] Dr. Frank Hills Basophils/100 WBC (Bld) 0.3 % Normal 0.2-2.0 [facility] Comment on above: Performed By: #### C BC #### [facility] [address] [place] [address] Dr. Frank Hills EO # 0.1 103/ul Normal 0.0-0.7 [facility] Comment on above: Performed By: #### C BC #### [facility] [address] [place] [address] Dr. Frank Hills Eosinophils/100 WBC (Bld) 1.6 % Normal 0.9-7.0 [facility] Comment on above: Performed By: #### C BC #### [facility] [address] [place] [address] Dr. Frank Hills Erythrocyte distribution width (RBC) [Ratio] 13.6 % Normal 11.0-15.0 [facility] Comment on above: Performed By: #### C BC #### [facility] [address] [place] [address] Dr. Frank Hills Hematocrit (Bld) [Volume fraction] 36.4 % Normal 36.0-48.0 [facility] Comment on above: Performed By: #### C BC #### [facility] [address] [place] [address] Dr. Frank Hills Hemoglobin (Bld) [Mass/Vol] 11.8 g/dL Critically low 12.0-16.0 [facility] Comment on above: Performed By: #### C BC #### [facility] [address] [place] [address] Dr. Frank Hills IG # 0.01 10e3/ul Normal 0.00-0.03 [facility] Comment on above: Performed By: #### C BC #### [facility] [address] [place] [address] Dr. Frank Hills IG % 0.3 % Normal 0.0-0.5 [facility] Comment on above: Performed By: #### C BC #### [facility] [address] [place] [address] Dr. Frank Hills LYMPH # 0.6 103/ul Critically low 1.2-3.8 [facility] Comment on above: Performed By: #### C BC #### [facility] [address] [place] [address] Dr. Frank Hills Lymphocytes/100 WBC (Bld) 15.3 % Critically low 20.5-60.0 [facility] Comment on above: Performed By: #### C BC #### [facility] [address] [place] [address] Dr. Frank Hills MANUAL DIFF REQ NO Normal [facility] Comment on above: Performed By: #### C BC #### [facility] [address] [place] [address] Dr. Frank Hills MCH (RBC) [Entitic mass] 33.2 pg Normal 26.7-34.0 [facility] Comment on above: Performed By: #### C BC #### [facility] [address] [place] [address] Dr. Frank Hills MCHC (RBC) [Mass/Vol] 32.4 g/dL Normal 29.9-35.2 [facility] Comment on above: Performed By: #### C BC #### [facility] [address] [place] [address] Dr. Frank Hills MCV (RBC) [Entitic vol] 102.5 fL Critically high 81.0-99.0 [facility] Comment on above: Performed By: #### C BC #### [facility] [address] [place] [address] Dr. Frank Hills MONO # 0.5 103/ul Normal 0.3-0.8 [facility] Comment on above: Performed By: #### C BC #### [facility] [address] [place] [address] Dr. Frank Hills Monocytes/100 WBC (Bld) 12.5 % Critically high 1.7-12.0 [facility] Comment on above: Performed By: #### C BC #### [facility] [address] [place] [address] Dr. Frank Hills NEUT # 2.6 103/ul Normal 1.4-6.5 [facility] Comment on above: Performed By: #### C BC #### [facility] [address] [place] [address] Dr. Frank Hills Neutrophils/100 WBC (Bld) 70.0 % Normal 43.0-75.0 [facility] Comment on above: Performed By: #### C BC #### [facility] [address] [address] [address] Frank Hills Platelet mean volume (Bld) [Entitic vol] 9.0 fL Critically low 9.5-13.5 [facility] Comment on above: Performed By: #### C BC #### [facility] [address] [address] [address] Frank Hills PLT 192 103/ul Normal 150-450 [facility] Comment on above: Performed By: #### C BC #### [facility] [address] [place] [address] Dr. Frank Hills RBC 3.55 106/ul Critically low 4.20-5.40 [facility] Comment on above: Performed By: #### C BC #### [facility] [address] [place] [address] Dr. Frank Hills WBC 3.7 103/ul Critically low 4.0-11.0 [facility] Comment on above: Performed By: #### C BC #### [facility] [address] [place] [address] Dr. Frank Hills PROF 14(COMP METB)on 023 Albumin [Mass/Vol] 3.7 g/dL Normal 3.4-5.0 [facility] Comment on above: Performed By: #### L IVER, LIPID, TSH, FT3, T4 #### [facility] [address] [place] [address] Dr. Frank Hills Albumin/Globulin [Mass ratio] 1.2 {ratio} Normal [facility] Comment on above: Performed By: #### L IVER, LIPID, TSH, FT3, T4 #### [facility] [address] [place] [address] Dr. Frank Hills ALP [Catalytic activity/Vol] 66 U/L Normal 46-116 [facility] Comment on above: Performed By: #### L IVER, LIPID, TSH, FT3, T4 #### [facility] [address] [place] [address] Dr. Frank Hills ALT [Catalytic activity/Vol] 29 U/L Normal 14-59 [facility] Comment on above: Performed By: #### L IVER, LIPID, TSH, FT3, T4 #### [facility] [address] [place] [address] Dr. Frank Hills Anion gap [Moles/Vol] 11.6 mmol/L Normal [facility] Comment on above: Performed By: #### L IVER, LIPID, TSH, FT3, T4 #### [facility] [address] [place] [address] Dr. Frank Hills AST [Catalytic activity/Vol] 27 U/L Normal 15-37 [facility] Comment on above: Performed By: #### L IVER, LIPID, TSH, FT3, T4 #### [facility] [address] [place] [address] Dr. Frank Hills Bilirubin [Mass/Vol] 0.7 mg/dL Normal 0.2-1.0 [facility] Comment on above: Performed By: #### L IVER, LIPID, TSH, FT3, T4 #### [facility] [address] [place] [address] Dr. Frank Hills Calcium [Mass/Vol] 9.1 mg/dL Normal 8.5-10.1 [facility] Comment on above: Performed By: #### L IVER, LIPID, TSH, FT3, T4 #### [facility] [address] [place] [address] Dr. Frank Hills Chloride [Moles/Vol] 105 mmol/L Normal 98-107 [facility] Comment on above: Performed By: #### L IVER, LIPID, TSH, FT3, T4 #### [facility] [address] [place] [address] Dr. Frank Hills CO2 [Moles/Vol] 29.5 mmol/L Normal 21.0-32.0 [facility] Comment on above: Performed By: #### L IVER, LIPID, TSH, FT3, T4 #### [facility] [address] [place] [address] Dr. Frank Hills Creatinine [Mass/Vol] 0.57 mg/dL Normal 0.55-1.02 [facility] Comment on above: Performed By: #### L IVER, LIPID, TSH, FT3, T4 #### [facility] [address] [address] [address] Frank Hills EGFR-AF BELARUSIAN >60 Normal >=60 [facility] Comment on above: Performed By: #### L IVER, LIPID, TSH, FT3, T4 #### [facility] [address] [address] [address] Frank Hills EGFR-NON AF BELARUSIAN >60 Normal >=60 [facility] Comment on above: Performed By: #### L IVER, LIPID, TSH, FT3, T4 #### [facility] [address] [place] [address] Dr. Frank Hills Globulin (S) [Mass/Vol] 3.1 g/dL Normal [facility] Comment on above: Performed By: #### L IVER, LIPID, TSH, FT3, T4 #### [facility] [address] [address] [address] Frank Hills Glucose [Mass/Vol] 95 mg/dL Normal 74-106 [facility] Comment on above: Performed By: #### L IVER, LIPID, TSH, FT3, T4 #### [facility] [address] [address] [address] Frank Hills Potassium [Moles/Vol] 5.1 mmol/L Normal 3.5-5.1 [facility] Comment on above: Performed By: #### L IVER, LIPID, TSH, FT3, T4 #### [facility] [address] [address] [address] Frank Hills Protein [Mass/Vol] 6.8 g/dL Normal 6.4-8.2 [facility] Comment on above: Performed By: #### L IVER, LIPID, TSH, FT3, T4 #### [facility] [address] [address] [address] Frank Hills Sodium [Moles/Vol] 141 mmol/L Normal 136-145 [facility] Comment on above: Performed By: #### L IVER, LIPID, TSH, FT3, T4 #### [facility] [address] [place] [address] Dr. Frank Hills Urea nitrogen [Mass/Vol] 13.0 mg/dL Normal 7.0-18.0 [facility] Comment on above: Performed By: #### L IVER, LIPID, TSH, FT3, T4 #### [facility] [address] [place] [address] Dr. Frank Hills Urea nitrogen/Creatinine [Mass ratio] 22.8 mg/mg Normal [facility] Comment on above: Performed By: #### L IVER, LIPID, TSH, FT3, T4 #### [facility] [address] [place] [address] Dr. Frank Hills SED RATE [facility] 2022 SED RATE 9 mm/hr Normal <=30 [facility] Comment on above: Performed By: #### L IVER, LIPID, TSH, FT3, T4 #### [facility] [address] [place] [address] Dr. Frank Hills UA RANDOM W/MICROSCOPICon BACTERIA NONE SEEN Normal NONE SEEN [facility] Comment on above: Performed By: #### L IVER, LIPID, TSH, FT3, T4 #### [facility] [address] [place] [address] Dr. Frank Hills Bilirubin Ql (U) Negative Normal NEGATIVE [facility] Comment on above: Performed By: #### L IVER, LIPID, TSH, FT3, T4 #### [facility] [address] [place] [address] Dr. Frank Hills CAST NONE SEEN Normal NONE SEEN [facility] Comment on above: Performed By: #### L IVER, LIPID, TSH, FT3, T4 #### [facility] [address] [place] [address] Dr. Frank Hills Clarity (U) CLEAR Normal CLEAR [facility] Comment on above: Performed By: #### L IVER, LIPID, TSH, FT3, T4 #### [facility] [address] [address] [address] Frank Hills Color (U) LT. YELLOW Normal YELLOW [facility] Comment on above: Performed By: #### L IVER, LIPID, TSH, FT3, T4 #### [facility] [address] [address] [address] Frank Hills Crystals LM Nom (Urine sed) NONE SEEN Normal NONE SEEN [facility] Comment on above: Performed By: #### L IVER, LIPID, TSH, FT3, T4 #### [facility] [address] [address] [address] Frank Hills Epithelial cells LM Ql (Urine sed) RARE Normal NONE SEEN /RARE [facility] Comment on above: Performed By: #### L IVER, LIPID, TSH, FT3, T4 #### [facility] [address] [place] [address] Dr. Frank Hills Glucose Ql (U) Negative Normal NEGATIVE [facility] Comment on above: Performed By: #### L IVER, LIPID, TSH, FT3, T4 #### [facility] [address] [place] [address] Dr. Frank Hills Hemoglobin Ql (U) Negative Normal NEGATIVE [facility] Comment on above: Performed By: #### L IVER, LIPID, TSH, FT3, T4 #### [facility] [address] [place] [address] Dr. Frank Hills Ketones Ql (U) Negative Normal NEGATIVE [facility] Comment on above: Performed By: #### L IVER, LIPID, TSH, FT3, T4 #### [facility] [address] [address] [address] Frank Hills LEUKOCYTES Negative Normal NEGATIVE [facility] Comment on above: Performed By: #### L IVER, LIPID, TSH, FT3, T4 #### [facility] [address] [address] [address] Frank Hills MUCOUS NONE SEEN Normal NONE SEEN [facility] Comment on above: Performed By: #### L IVER, LIPID, TSH, FT3, T4 #### [facility] [address] [address] [address] Frank Hills Nitrite Ql (U) Negative Normal NEGATIVE [facility] Comment on above: Performed By: #### L IVER, LIPID, TSH, FT3, T4 #### [facility] [address] [place] [address] Dr. Frank Hills pH (U) 6.5 [pH] Normal 5-9 [facility] Comment on above: Performed By: #### L IVER, LIPID, TSH, FT3, T4 #### [facility] [address] [place] [address] Dr. Frank Hills RBC NONE SEEN Abnormal 0-2 [facility] Comment on above: Performed By: #### L IVER, LIPID, TSH, FT3, T4 #### [facility] [address] [place] [address] Dr. Frank Hills SPEC GRAVITY 1.020 Normal 1.005-<=1.025 [facility] Comment on above: Performed By: #### L IVER, LIPID, TSH, FT3, T4 #### [facility] [address] [place] [address] Dr. Frank Hills UA PROTEIN Negative Normal NEGATIVE/ TRACE [facility] Comment on above: Performed By: #### L IVER, LIPID, TSH, FT3, T4 #### [facility] [address] [place] [address] Dr. Frank Hills Urobilinogen Qn (U) 0.2 {Flaquita'U}/dL Normal 0.2 - 1. 0 [facility] Comment on above: Performed By: #### L IVER, LIPID, TSH, FT3, T4 #### [facility] [address] [address] [address] Frank Hills WBC NONE SEEN Normal NONE SEEN [facility] Comment on above: Performed By: #### L IVER, LIPID, TSH, FT3, T4 #### [facility] [address] [place] [address] Dr. Frank Hills C3 and C4 COMPLEMENTon 11-04 Complement C3, Serum 132 mg/dL Normal 82-167 [facility] Comment on above: Performed By: #### L IVER, LIPID, TSH, FT3, T4 #### [facility] [address] [place] [address] Dr. Frank Hills Complement C4, Serum 33 mg/dL Normal 12-38 [facility] Comment on above: Performed By: #### L IVER, LIPID, TSH, FT3, T4 #### [facility] [address] [place] [address] Dr. Frank Hills COMPLEMENT TOTAL (CH50)on Complement, Total (CH50) >60 Normal >41 [facility] Comment on above: Result Comment: Age [...] L IVER, LIPID, TSH, FT3, T4 #### [facility] [address] [place] [address] Dr. Frank Hills CBC AUTO DIFFon 11-03-2022 BASO # 0.0 103/ul Normal 0.0-0.1 [facility] Comment on above: Performed By: #### L IVER, LIPID, TSH, FT3, T4 #### [facility] [address] [place] [address] Dr. Frank Hills Basophils/100 WBC (Bld) 1.0 % Normal 0.2-2.0 [facility] Comment on above: Performed By: #### L IVER, LIPID, TSH, FT3, T4 #### [facility] [address] [place] [address] Dr. Frank Hills EO # 0.1 103/ul Normal 0.0-0.7 [facility] Comment on above: Performed By: #### L IVER, LIPID, TSH, FT3, T4 #### [facility] [address] [place] [address] Dr. Frank Hills Eosinophils/100 WBC (Bld) 1.8 % Normal 0.9-7.0 [facility] Comment on above: Performed By: #### L IVER, LIPID, TSH, FT3, T4 #### [facility] [address] [place] [address] Dr. Frank Hills Erythrocyte distribution width (RBC) [Ratio] 13.8 % Normal 11.0-15.0 [facility] Comment on above: Performed By: #### L IVER, LIPID, TSH, FT3, T4 #### [facility] [address] [place] [address] Dr. Frank Hills Hematocrit (Bld) [Volume fraction] 36.3 % Normal 36.0-48.0 [facility] Comment on above: Performed By: #### L IVER, LIPID, TSH, FT3, T4 #### [facility] [address] [place] [address] Dr. Frank Hills Hemoglobin (Bld) [Mass/Vol] 11.9 g/dL Critically low 12.0-16.0 [facility] Comment on above: Performed By: #### L IVER, LIPID, TSH, FT3, T4 #### [facility] [address] [place] [address] Dr. Frank Hills IG # 0.02 10e3/ul Normal 0.00-0.03 [facility] Comment on above: Performed By: #### L IVER, LIPID, TSH, FT3, T4 #### [facility] [address] [place] [address] Dr. Frank Hills IG % 0.5 % Normal 0.0-0.5 [facility] Comment on above: Performed By: #### L IVER, LIPID, TSH, FT3, T4 #### [facility] [address] [place] [address] Dr. Frank Hills LYMPH # 0.7 103/ul Critically low 1.2-3.8 [facility] Comment on above: Performed By: #### L IVER, LIPID, TSH, FT3, T4 #### [facility] [address] [address] [address] Frank Hills Lymphocytes/100 WBC (Bld) 18.0 % Critically low 20.5-60.0 [facility] Comment on above: Performed By: #### L IVER, LIPID, TSH, FT3, T4 #### [facility] [address] [place] [address] Dr. Frank Hills MANUAL DIFF REQ NO Normal [facility] Comment on above: Performed By: #### L IVER, LIPID, TSH, FT3, T4 #### [facility] [address] [place] [address] Dr. Frank Hills MCH (RBC) [Entitic mass] 34.2 pg Critically high 26.7-34.0 [facility] Comment on above: Performed By: #### L IVER, LIPID, TSH, FT3, T4 #### [facility] [address] [place] [address] Dr. Frank Hills MCHC (RBC) [Mass/Vol] 32.8 g/dL Normal 29.9-35.2 [facility] Comment on above: Performed By: #### L IVER, LIPID, TSH, FT3, T4 #### [facility] [address] [place] [address] Dr. Frank Hills MCV (RBC) [Entitic vol] 104.3 fL Critically high 81.0-99.0 [facility] Comment on above: Performed By: #### L IVER, LIPID, TSH, FT3, T4 #### [facility] [address] [place] [address] Dr. Frank Hills MONO # 0.4 103/ul Normal 0.3-0.8 [facility] Comment on above: Performed By: #### L IVER, LIPID, TSH, FT3, T4 #### [facility] [address] [place] [address] Dr. Frank Hills Monocytes/100 WBC (Bld) 10.0 % Normal 1.7-12.0 [facility] Comment on above: Performed By: #### L IVER, LIPID, TSH, FT3, T4 #### [facility] [address] [address] [address] Frank Hills NEUT # 2.7 103/ul Normal 1.4-6.5 [facility] Comment on above: Performed By: #### L IVER, LIPID, TSH, FT3, T4 #### [facility] [address] [place] [address] Dr. Frank Hills Neutrophils/100 WBC (Bld) 68.7 % Normal 43.0-75.0 [facility] Comment on above: Performed By: #### L IVER, LIPID, TSH, FT3, T4 #### [facility] [address] [place] [address] Dr. Frank Hills Platelet mean volume (Bld) [Entitic vol] 9.4 fL Critically low 9.5-13.5 [facility] Comment on above: Performed By: #### L IVER, LIPID, TSH, FT3, T4 #### [facility] [address] [place] [address] Dr. Frank Hills PLT 187 103/ul Normal 150-450 [facility] Comment on above: Performed By: #### L IVER, LIPID, TSH, FT3, T4 #### [facility] [address] [place] [address] Dr. Frank Hills RBC 3.48 106/ul Critically low 4.20-5.40 [facility] Comment on above: Performed By: #### L IVER, LIPID, TSH, FT3, T4 #### [facility] [address] [place] [address] Dr. Frank Hills WBC 3.9 103/ul Critically low 4.0-11.0 [facility] Comment on above: Performed By: #### L IVER, LIPID, TSH, FT3, T4 #### [facility] [address] [place] [address] Dr. Frank Hills PROF 14(COMP METB)on 022 Albumin [Mass/Vol] 3.9 g/dL Normal 3.4-5.0 [facility] Comment on above: Performed By: #### L IVER, LIPID, TSH, FT3, T4 #### [facility] [address] [place] [address] Dr. Frank Hills Albumin/Globulin [Mass ratio] 1.3 {ratio} Normal [facility] Comment on above: Performed By: #### L IVER, LIPID, TSH, FT3, T4 #### [facility] [address] [place] [address] Dr. Frank Hills ALP [Catalytic activity/Vol] 63 U/L Normal 46-116 [facility] Comment on above: Performed By: #### L IVER, LIPID, TSH, FT3, T4 #### [facility] [address] [place] [address] Dr. Frank Hills ALT [Catalytic activity/Vol] 27 U/L Normal 14-59 [facility] Comment on above: Performed By: #### L IVER, LIPID, TSH, FT3, T4 #### [facility] [address] [place] [address] Dr. Frank Hills Anion gap [Moles/Vol] 8.4 mmol/L Normal [facility] Comment on above: Performed By: #### L IVER, LIPID, TSH, FT3, T4 #### [facility] [address] [place] [address] Dr. Frank Hills AST [Catalytic activity/Vol] 31 U/L Normal 15-37 [facility] Comment on above: Performed By: #### L IVER, LIPID, TSH, FT3, T4 #### [facility] [address] [place] [address] Dr. Frank Hills Bilirubin [Mass/Vol] 0.7 mg/dL Normal 0.2-1.0 [facility] Comment on above: Performed By: #### L IVER, LIPID, TSH, FT3, T4 #### [facility] [address] [place] [address] Dr. Frank Hills Calcium [Mass/Vol] 9.0 mg/dL Normal 8.5-10.1 [facility] Comment on above: Performed By: #### L IVER, LIPID, TSH, FT3, T4 #### [facility] [address] [place], [place] [id number] Dr. Frank Hills Chloride [Moles/Vol] 102 mmol/L Normal 98-107 [facility] Comment on above: Performed By: #### L IVER, LIPID, TSH, FT3, T4 #### [facility] [address] [place] [address] Dr. Frank Hills CO2 [Moles/Vol] 30.8 mmol/L Normal 21.0-32.0 [facility] Comment on above: Performed By: #### L IVER, LIPID, TSH, FT3, T4 #### [facility] [address] [address] [address] Frank Hills Creatinine [Mass/Vol] 0.62 mg/dL Normal 0.55-1.02 [facility] Comment on above: Performed By: #### L IVER, LIPID, TSH, FT3, T4 #### [facility] [address] [place] [address] Dr. Frank Hills EGFR-AF BELARUSIAN >60 Normal >=60 [facility] Comment on above: Performed By: #### L IVER, LIPID, TSH, FT3, T4 #### [facility] [address] [place] [address] Dr. Frank Hills EGFR-NON AF BELARUSIAN >60 Normal >=60 [facility] Comment on above: Performed By: #### L IVER, LIPID, TSH, FT3, T4 #### [facility] [address] [address] [address] Frank Hills Globulin (S) [Mass/Vol] 3.1 g/dL Normal [facility] Comment on above: Performed By: #### L IVER, LIPID, TSH, FT3, T4 #### [facility] [address] [address] [address] Frank Hills Glucose [Mass/Vol] 102 mg/dL Normal 74-106 [facility] Comment on above: Performed By: #### L IVER, LIPID, TSH, FT3, T4 #### [facility] [address] [address] [address] Frank Hills Potassium [Moles/Vol] 4.2 mmol/L Normal 3.5-5.1 [facility] Comment on above: Performed By: #### L IVER, LIPID, TSH, FT3, T4 #### [facility] [address] [place] [address] Dr. Frank Hills Protein [Mass/Vol] 7.0 g/dL Normal 6.4-8.2 [facility] Comment on above: Performed By: #### L IVER, LIPID, TSH, FT3, T4 #### [facility] [address] [place] [address] Dr. Frank Hills Sodium [Moles/Vol] 137 mmol/L Normal 136-145 [facility] Comment on above: Performed By: #### L IVER, LIPID, TSH, FT3, T4 #### [facility] [address] [place] [address] Dr. Frank Hills Urea nitrogen [Mass/Vol] 15.0 mg/dL Normal 7.0-18.0 [facility] Comment on above: Performed By: #### L IVER, LIPID, TSH, FT3, T4 #### [facility] [address] [place] [address] Dr. Frank Hills Urea nitrogen/Creatinine [Mass ratio] 24.2 mg/mg Normal [facility] Comment on above: Performed By: #### L IVER, LIPID, TSH, FT3, T4 #### [facility] [address] [place] [address] Dr. Frank Hills SED RATE [facility] 2021 SED RATE 8 mm/hr Normal <=30 [facility] Comment on above: Performed By: #### L IVER, LIPID, TSH, FT3, T4 #### [facility] [address] [place] [address] Dr. Frank Hills UA RANDOM W/MICROSCOPICon BACTERIA NONE SEEN Normal NONE SEEN [facility] Comment on above: Performed By: #### L IVER, LIPID, TSH, FT3, T4 #### [facility] [address] [place] [address] Dr. Frank Hills Bilirubin Ql (U) Negative Normal NEGATIVE [facility] Comment on above: Performed By: #### L IVER, LIPID, TSH, FT3, T4 #### [facility] [address] [place] [address] Dr. Frank Hills CAST NONE SEEN Normal NONE SEEN [facility] Comment on above: Performed By: #### L IVER, LIPID, TSH, FT3, T4 #### [facility] [address] [address] [address] Frank Hills Clarity (U) CLEAR Normal CLEAR [facility] Comment on above: Performed By: #### L IVER, LIPID, TSH, FT3, T4 #### [facility] [address] [address] [address] Frank Hills Color (U) LT. YELLOW Normal YELLOW [facility] Comment on above: Performed By: #### L IVER, LIPID, TSH, FT3, T4 #### [facility] [address] [place] [address] Dr. Frank Hills Crystals LM Nom (Urine sed) NONE SEEN Normal NONE SEEN [facility] Comment on above: Performed By: #### L IVER, LIPID, TSH, FT3, T4 #### [facility] [address] [place] [address] Dr. Frank Hills Epithelial cells LM Ql (Urine sed) NONE SEEN Normal NONE SEEN /RARE [facility] Comment on above: Performed By: #### L IVER, LIPID, TSH, FT3, T4 #### [facility] [address] [place] [address] Dr. Frank Hills Glucose Ql (U) Negative Normal NEGATIVE [facility] Comment on above: Performed By: #### L IVER, LIPID, TSH, FT3, T4 #### [facility] [address] [place] [address] Dr. Frank Hills Hemoglobin Ql (U) Negative Normal NEGATIVE [facility] Comment on above: Performed By: #### L IVER, LIPID, TSH, FT3, T4 #### [facility] [address] [place] [address] Dr. Frank Hills Ketones Ql (U) Negative Normal NEGATIVE [facility] Comment on above: Performed By: #### L IVER, LIPID, TSH, FT3, T4 #### [facility] [address] [place] [address] Dr. Frank Hills LEUKOCYTES Negative Normal NEGATIVE [facility] Comment on above: Performed By: #### L IVER, LIPID, TSH, FT3, T4 #### [facility] [address] [address] [address] Frank Hills MUCOUS NONE SEEN Normal NONE SEEN [facility] Comment on above: Performed By: #### L IVER, LIPID, TSH, FT3, T4 #### [facility] [address] [address] [address] Frank Hills Nitrite Ql (U) Negative Normal NEGATIVE [facility] Comment on above: Performed By: #### L IVER, LIPID, TSH, FT3, T4 #### [facility] [address] [place] [address] Dr. Frank Hills pH (U) 6.5 [pH] Normal 5-9 [facility] Comment on above: Performed By: #### L IVER, LIPID, TSH, FT3, T4 #### [facility] [address] [place] [address] Dr. Frank Hills RBC 0-2 Normal 0-2 [facility] Comment on above: Performed By: #### L IVER, LIPID, TSH, FT3, T4 #### [facility] [address] [place] [address] Dr. Frank Hills SPEC GRAVITY 1.015 Normal 1.005-<=1.025 [facility] Comment on above: Performed By: #### L IVER, LIPID, TSH, FT3, T4 #### [facility] [address] [place] [address] Dr. Frank Hills UA PROTEIN Negative Normal NEGATIVE/ TRACE [facility] Comment on above: Performed By: #### L IVER, LIPID, TSH, FT3, T4 #### [facility] [address] [place] [address] Dr. Frank Hills Urobilinogen Qn (U) 0.2 {Flaquita'U}/dL Normal 0.2 - 1. 0 [facility] Comment on above: Performed By: #### L IVER, LIPID, TSH, FT3, T4 #### [facility] [address] [place] [address] Dr. Frank Hills WBC NONE SEEN Normal NONE SEEN [facility] Comment on above: Performed By: #### L IVER, LIPID, TSH, FT3, T4 #### [facility] [address] [place] [address] Dr. Frank Hills INSULINon 10-19-2022 Insulin 9.2 uIU/mL Normal 2.6-24.9 [facility] Comment on above: Performed By: #### L IVER, LIPID, TSH, FT3, T4 #### [facility] [address] [place] [address] Dr. Frank Hills CBC W MANUAL DIFFon 10-18-20 ANISOCYTOSIS SLIGHT Normal [facility] Comment on above: Performed By: #### L IVER, LIPID, TSH, FT3, T4 #### [facility] [address] [place] [address] Dr. Frank Hills ATYPICAL LYMPH # Normal [facility] Comment on above: Performed By: #### L IVER, LIPID, TSH, FT3, T4 #### [facility] [address] [place] [address] Dr. Frank Hills ATYPICAL LYMPH % Normal [facility] Comment on above: Performed By: #### L IVER, LIPID, TSH, FT3, T4 #### [facility] [address] [place] [address] Dr. Frank Hills BAND # Normal 0.0-0.3 [facility] Comment on above: Performed By: #### L IVER, LIPID, TSH, FT3, T4 #### [facility] [address] [place] [address] Dr. Frank Hills BAND % Normal 0-5 [facility] Comment on above: Performed By: #### L IVER, LIPID, TSH, FT3, T4 #### [facility] [address] [address] [address] Frank TURKOM # 0.00 103/ul Normal 0.00-0.10 [facility] Comment on above: Performed By: #### L IVER, LIPID, TSH, FT3, T4 #### [facility] [address] [address] [address] Frank Hills BASOM % 0.0 % Critically low 0.2-2.0 [facility] Comment on above: Performed By: #### L IVER, LIPID, TSH, FT3, T4 #### [facility] [address] [address] [address] Frank Hills BLAST # Normal [facility] Comment on above: Performed By: #### L IVER, LIPID, TSH, FT3, T4 #### [facility] [address] [address] [address] Frank Hills BLAST % Normal [facility] Comment on above: Performed By: #### L IVER, LIPID, TSH, FT3, T4 #### [facility] [address] [address] [address] Frank Hills CORRECTED WBC Normal 4.0-11.0 [facility] Comment on above: Performed By: #### L IVER, LIPID, TSH, FT3, T4 #### [facility] [address] [address] [address] Frank Hills EOS # 0.06 103/ul Normal 0.00-0.70 [facility] Comment on above: Performed By: #### L IVER, LIPID, TSH, FT3, T4 #### [facility] [address] [address] [address] Frank Hills EOS% 2.0 % Normal 0.9-7.0 [facility] Comment on above: Performed By: #### L IVER, LIPID, TSH, FT3, T4 #### [facility] [address] [address] [address] Frank Hills HCT 35.6 % Critically low 36.0-48.0 [facility] Comment on above: Performed By: #### L IVER, LIPID, TSH, FT3, T4 #### [facility] [address] [place] [address] Dr. Frank Hills HGB 11.4 g/dl Critically low 12.0-16.0 [facility] Comment on above: Performed By: #### L IVER, LIPID, TSH, FT3, T4 #### [facility] [address] [place] [address] Dr. Frank Hills LYMPHM # 0.48 103/ul Critically low 1.20-3.80 [facility] Comment on above: Performed By: #### L IVER, LIPID, TSH, FT3, T4 #### [facility] [address] [place] [address] Dr. Frank Hills LYMPHM% 17.0 % Critically low 20.5-60.0 [facility] Comment on above: Performed By: #### L IVER, LIPID, TSH, FT3, T4 #### [facility] [address] [place] [address] Dr. Frank Hills MCH 33.4 pg Normal 26.7-34.0 [facility] Comment on above: Performed By: #### L IVER, LIPID, TSH, FT3, T4 #### [facility] [address] [place] [address] Dr. Frank Hills MCHC 32.0 g/dl Normal 29.9-35.2 [facility] Comment on above: Performed By: #### L IVER, LIPID, TSH, FT3, T4 #### [facility] [address] [place] [address] Dr. Frank Hills MCV 104.4 fL Critically high 81.0-99.0 [facility] Comment on above: Performed By: #### L IVER, LIPID, TSH, FT3, T4 #### [facility] [address] [place] [address] Dr. Frank Hills METAMYELOCYTE # Normal [facility] Comment on above: Performed By: #### L IVER, LIPID, TSH, FT3, T4 #### [facility] [address] [place] [address] Dr. Frank Hills METAMYELOCYTE % Normal [facility] Comment on above: Performed By: #### L IVER, LIPID, TSH, FT3, T4 #### [facility] [address] [place] [address] Dr. Frank Hills MICROCYTOSIS 1+ Normal [facility] Comment on above: Performed By: #### L IVER, LIPID, TSH, FT3, T4 #### [facility] [address] [place] [address] Dr. Frank Hills MONOM# 0.28 103/ul Critically low 0.30-0.80 [facility] Comment on above: Performed By: #### L IVER, LIPID, TSH, FT3, T4 #### [facility] [address] [place] [address] Dr. Frank Hills MONOM% 10.0 % Normal 1.7-12.0 [facility] Comment on above: Performed By: #### L IVER, LIPID, TSH, FT3, T4 #### [facility] [address] [place] [address] Dr. Frank Hills MPV 8.9 fL Critically low 9.5-13.5 [facility] Comment on above: Performed By: #### L IVER, LIPID, TSH, FT3, T4 #### [facility] [address] [place] [address] Dr. Frank Hills MYELOCYTE # Normal [facility] Comment on above: Performed By: #### L IVER, LIPID, TSH, FT3, T4 #### [facility] [address] [place] [address] Dr. Frank Hills MYELOCYTE % Normal [facility] Comment on above: Performed By: #### L IVER, LIPID, TSH, FT3, T4 #### [facility] [address] [place] [address] Dr. Frank Hills NRBC Normal [facility] Comment on above: Performed By: #### L IVER, LIPID, TSH, FT3, T4 #### [facility] [address] [place] [address] Dr. Frank Hills PLT 169 103/ul Normal 150-450 [facility] Comment on above: Performed By: #### L IVER, LIPID, TSH, FT3, T4 #### [facility] [address] [address] [address] Frank Hills RBC 3.41 106/ul Critically low 4.20-5.40 [facility] Comment on above: Performed By: #### L IVER, LIPID, TSH, FT3, T4 #### [facility] [address] [place] [address] Dr. Frank Hilsl RDW 14.1 % Normal 11.0-15.0 [facility] Comment on above: Performed By: #### L IVER, LIPID, TSH, FT3, T4 #### [facility] [address] [place] [address] Dr. Frank Hills SEG # 1.99 103/ul Normal 1.40-6.50 [facility] Comment on above: Performed By: #### L IVER, LIPID, TSH, FT3, T4 #### [facility] [address] [place] [address] Dr. Frank Hills SEG % 71.0 % Normal 43.0-75.0 [facility] Comment on above: Performed By: #### L IVER, LIPID, TSH, FT3, T4 #### [facility] [address] [place] [address] Dr. Frank Hills WBC 2.8 103/ul Critically low 4.0-11.0 [facility] Comment on above: Performed By: #### L IVER, LIPID, TSH, FT3, T4 #### [facility] [address] [place] [address] Dr. Frank Hills FREE T3on 10-18-2022 FREE T3 2.61 pg/mlL Normal 2.18-3.98 [facility] Comment on above: Performed By: #### L IVER, LIPID, TSH, FT3, T4 #### [facility] [address] [place] [address] Dr. Frank Hills GLYCOHEMOGLOBIN A1Con 2021 ADA RECOMMENDATION SEE BELOW Normal [facility] Comment on above: Result Comment: ADA RECOMMENDED LIMIT 4.0 - 6.0 ADA THERAPEUTIC TARGET < 7.0 ACTION SUGGESTED > 7.0 Performed By: #### A 1C #### [facility] [address] [place] [address] Dr. Frank Hills Glucose [Mass/Vol] 108 mg/dL Normal [facility] Comment on above: Performed By: #### A 1C #### [facility] [address] [address] [address] Frank Hills HbA1c (Bld) [Mass fraction] 5.4 % Normal 4.5-6.2 [facility] Comment on above: Performed By: #### A 1C #### [facility] [address] [place] [address] Dr. Frank Hills IRONon 10-18-2022 Iron [Mass/Vol] 96.0 ug/dL Normal 50.0-170.0 [facility] Comment on above: Performed By: #### L IVER, LIPID, TSH, FT3, T4 #### [facility] [address] [place] [address] Dr. Frank Hills LIPID PROFILEon 10-18-2022 CHOL-HDL RATIO NORM SEE BELOW Normal [facility] Comment on above: Result Comment: 3.3 - 4.4 LOW RISK 4.4 - 7.1 AVERAGE RISK 7.1 - 11.0 MODERATE RISK >11.0 HIGH RISK Performed By: #### L IVER, LIPID, TSH, FT3, T4 #### [facility] [address] [place] [address] Dr. Frank Hills Cholesterol [Mass/Vol] 172 mg/dL Normal <=200 [facility] Comment on above: Performed By: #### L IVER, LIPID, TSH, FT3, T4 #### [facility] [address] [place] [address] Dr. Frank Hills Cholesterol in HDL [Mass/Vol] 66 mg/dL Critically high 40-60 [facility] Comment on above: Performed By: #### L IVER, LIPID, TSH, FT3, T4 #### [facility] [address] [address] [address] Frank Hills Cholesterol in LDL [Mass/Vol] 86.6 mg/dL Normal [facility] Comment on above: Performed By: #### L IVER, LIPID, TSH, FT3, T4 #### [facility] [address] [address] [address] Frank Hills Cholesterol.total/Ch olesterol in HDL [Mass ratio] 2.6 {ratio} Normal [facility] Comment on above: Performed By: #### L IVER, LIPID, TSH, FT3, T4 #### [facility] [address] [address] [address] Frank Hills HDL NORMAL > or = 60 mg/dl - LO W CARDIOVASCULAR RISK <40 mg/dl - HIGH CARDIOVASCULAR RISK Normal [facility] Comment on above: Performed By: #### L IVER, LIPID, TSH, FT3, T4 #### [facility] [address] [address] [address] Frank Hills LDL CALC NORMAL SEE BELOW Normal [facility] Comment on above: Result Comment: <100 mg/dl OPTIMAL 100 - 129 mg/dl NEAR OR ABOVE OPTIMAL 130 - 159 mg/dl BORDERLINE HIGH 160 - 189 mg/dl HIGH >190 mg/dl VERY HIGH Performed By: #### L IVER, LIPID, TSH, FT3, T4 #### [facility] [address] [address] [address] Frank Hills Triglyceride [Mass/Vol] 97 mg/dL Normal <=150 [facility] Comment on above: Performed By: #### L IVER, LIPID, TSH, FT3, T4 #### [facility] [address] [address] [address] Frank Hills VLDL CALC 19.4 mg/dL Normal [facility] Comment on above: Performed By: #### L IVER, LIPID, TSH, FT3, T4 #### [facility] [address] [address] [address] Frank Hills LIVER PROFILEon 10-18-2022 Albumin [Mass/Vol] 3.5 g/dL Normal 3.4-5.0 [facility] Comment on above: Performed By: #### L IVER, LIPID, TSH, FT3, T4 #### [facility] [address] [place] [address] Dr. Frank Hills Albumin/Globulin [Mass ratio] 1.2 {ratio} Normal [facility] Comment on above: Performed By: #### L IVER, LIPID, TSH, FT3, T4 #### [facility] [address] [place] [address] Dr. Frank Hills ALP [Catalytic activity/Vol] 55 U/L Normal 46-116 [facility] Comment on above: Performed By: #### L IVER, LIPID, TSH, FT3, T4 #### [facility] [address] [place] [address] Dr. Frank Hills ALT [Catalytic activity/Vol] 34 U/L Normal 14-59 [facility] Comment on above: Performed By: #### L IVER, LIPID, TSH, FT3, T4 #### [facility] [address] [place] [address] Dr. Frank Hills AST [Catalytic activity/Vol] 40 U/L Critically high 15-37 [facility] Comment on above: Performed By: #### L IVER, LIPID, TSH, FT3, T4 #### [facility] [address] [place] [address] Dr. Frank Hills BILI, CONJUGATED 0.2 mg/dL Normal 0.0-0.2 [facility] Comment on above: Performed By: #### L IVER, LIPID, TSH, FT3, T4 #### [facility] [address] [place] [address] Dr. Frank Hills Bilirubin [Mass/Vol] 0.8 mg/dL Normal 0.2-1.0 [facility] Comment on above: Performed By: #### L IVER, LIPID, TSH, FT3, T4 #### [facility] [address] [place] [address] Dr. Frank Hills Globulin (S) [Mass/Vol] 2.9 g/dL Normal [facility] Comment on above: Performed By: #### L IVER, LIPID, TSH, FT3, T4 #### [facility] [address] [place] [address] Dr. Frank Hills Protein [Mass/Vol] 6.4 g/dL Normal 6.4-8.2 [facility] Comment on above: Performed By: #### L IVER, LIPID, TSH, FT3, T4 #### [facility] [address] [place] [address] Dr. Frank Hills T4on 10-18-2022 T4 [Mass/Vol] 6.70 ug/dL Normal 4.80-13.90 [facility] Comment on above: Performed By: #### L IVER, LIPID, TSH, FT3, T4 #### [facility] [address] [place] [address] Dr. Frank Hills TSHon 10-18-2022 TSH 1.804 uIU/mL Normal 0.358-3.740 [facility] Comment on above: Performed By: #### L IVER, LIPID, TSH, FT3, T4 #### [facility] [address] [place] [address] Dr. Frank Hills VITAMIN D 25 OHon 10-18-2022 VIT D 25-OH 50.7 ng/mL Normal [facility] Comment on above: Performed By: #### L IVER, LIPID, TSH, FT3, T4 #### [facility] [address] [place] [address] Dr. Frank Hills VIT D RANGES SEE BELOW Normal [facility] Comment on above: Result Comment: <20 ng/mL Vit D deficient 20 - <30 ng/mL Vit D insufficient 30 - 100 ng/mL Vit D sufficient >100 ng/mL Potential Toxicity Performed By: #### L IVER, LIPID, TSH, FT3, T4 #### [facility] [address] [place] [address] Dr. Frank Hills MG MAMM SCREEN 3D BO CADon 08-31-2022 MG MAMM SCREEN 3D BO CAD Patient: DANYELLE HASKINS Exam Date: 08/31/2022 : 1955 Gender:F Ordering : DR JACK LANDAVERDE . Admission #: [id number] Family : YULISA BATRES . Order #: [id number] CLICK HERE TO VIEW EXAM RADIOLOGY REPORT [...] thyroid cancer at age 48. LOCATION: [facility] BREAST COMPOSITION: Scattered areas fibroglandular [...] LUMP SHOULD BE BIOPSIED. Dictated by: Lisy Snadoval MD on 08/31/2022 at 11:12 Approved by: Lisy Sandoval MD on 08/31/2022 at 11:14 Normal [facility] XR DEXA BONE DENSITYon 08-27 XR DEXA [...] LISY SANDOVAL Date: 2022-08-27 18:41 Normal [facility] COMPLEMENT TOTAL (CH50)on Complement, Total (CH50) >60 Normal >41 [facility] Comment on above: Result Comment: Age Male [...] L IVER, LIPID, TSH, FT3, T4 #### [facility] [address] [place] [address] Dr. Frank Hills C3 and C4 COMPLEMENTon 08-01 Complement C3, Serum 146 mg/dL Normal 82-167 [facility] Comment on above: Performed By: #### L IVER, LIPID, TSH, FT3, T4 #### [facility] [address] [place] [address] Dr. Frank Hills Complement C4, Serum 38 mg/dL Normal 12-38 [facility] Comment on above: Performed By: #### L IVER, LIPID, TSH, FT3, T4 #### [facility] [address] [place] [address] Dr. Frank Hills CBC AUTO DIFFon 07-30-2022 BASO # 0.0 103/ul Normal 0.0-0.1 [facility] Comment on above: Performed By: #### C BC #### [facility] [address] [place] [address] Dr. Frank Hills Basophils/100 WBC (Bld) 0.9 % Normal 0.2-2.0 [facility] Comment on above: Performed By: #### C BC #### [facility] [address] [place] [address] Dr. Frank Hills EO # 0.1 103/ul Normal 0.0-0.7 [facility] Comment on above: Performed By: #### C BC #### [facility] [address] [place] [address] Dr. Frank Hills Eosinophils/100 WBC (Bld) 3.4 % Normal 0.9-7.0 [facility] Comment on above: Performed By: #### C BC #### [facility] [address] [place] [address] Dr. Frank Hills Erythrocyte distribution width (RBC) [Ratio] 13.8 % Normal 11.0-15.0 [facility] Comment on above: Performed By: #### C BC #### [facility] [address] [address] [address] Frank Hills Hematocrit (Bld) [Volume fraction] 36.6 % Normal 36.0-48.0 [facility] Comment on above: Performed By: #### C BC #### [facility] [address] [address] [address] Frank Hills Hemoglobin (Bld) [Mass/Vol] 11.8 g/dL Critically low 12.0-16.0 [facility] Comment on above: Performed By: #### C BC #### [facility] [address] [address] [address] Frank Hlils IG # 0.01 10e3/ul Normal 0.00-0.03 [facility] Comment on above: Performed By: #### C BC #### [facility] [address] [place] [address] Dr. Frank Hills IG % 0.3 % Normal 0.0-0.5 [facility] Comment on above: Performed By: #### C BC #### [facility] [address] [address] [address] Frank Hills LYMPH # 0.6 103/ul Critically low 1.2-3.8 [facility] Comment on above: Performed By: #### C BC #### [facility] [address] [address] [address] Frank Hills Lymphocytes/100 WBC (Bld) 18.1 % Critically low 20.5-60.0 [facility] Comment on above: Performed By: #### C BC #### [facility] [address] [address] [address] Frank Hills MANUAL DIFF REQ NO Normal [facility] Comment on above: Performed By: #### C BC #### [facility] [address] [place] [address] Dr. Frank Hills MCH (RBC) [Entitic mass] 33.6 pg Normal 26.7-34.0 [facility] Comment on above: Performed By: #### C BC #### [facility] [address] [address] [address] Frank Hills MCHC (RBC) [Mass/Vol] 32.2 g/dL Normal 29.9-35.2 [facility] Comment on above: Performed By: #### C BC #### [facility] [address] [address] [address] Frank Hills MCV (RBC) [Entitic vol] 104.3 fL Critically high 81.0-99.0 [facility] Comment on above: Performed By: #### C BC #### [facility] [address] [place] [address] Dr. Frank Hills MONO # 0.4 103/ul Normal 0.3-0.8 [facility] Comment on above: Performed By: #### C BC #### [facility] [address] [place] [address] Dr. Frank Hills Monocytes/100 WBC (Bld) 11.2 % Normal 1.7-12.0 [facility] Comment on above: Performed By: #### C BC #### [facility] [address] [place] [address] Dr. Frank Hills NEUT # 2.3 103/ul Normal 1.4-6.5 [facility] Comment on above: Performed By: #### C BC #### [facility] [address] [place] [address] Dr. Frank Hills Neutrophils/100 WBC (Bld) 66.1 % Normal 43.0-75.0 [facility] Comment on above: Performed By: #### C BC #### [facility] [address] [place] [address] Dr. Frank Hills Platelet mean volume (Bld) [Entitic vol] 8.9 fL Critically low 9.5-13.5 [facility] Comment on above: Performed By: #### C BC #### [facility] [address] [place] [address] Dr. Frank Hills PLT 213 103/ul Normal 150-450 [facility] Comment on above: Performed By: #### C BC #### [facility] [address] [place] [address] Dr. Frank Hills RBC 3.51 106/ul Critically low 4.20-5.40 [facility] Comment on above: Performed By: #### C BC #### [facility] [address] [place] [address] Dr. Frank Hills WBC 3.5 103/ul Critically low 4.0-11.0 [facility] Comment on above: Performed By: #### C BC #### [facility] [address] [place] [address] Dr. Frank Hills PROF 14(COMP METB)on 022 Albumin [Mass/Vol] 3.7 g/dL Normal 3.4-5.0 [facility] Comment on above: Performed By: #### L IVER, LIPID, TSH, FT3, T4 #### [facility] [address] [place] [address] Dr. Frank Hills Albumin/Globulin [Mass ratio] 1.2 {ratio} Normal [facility] Comment on above: Performed By: #### L IVER, LIPID, TSH, FT3, T4 #### [facility] [address] [place] [address] Dr. Frank Hills ALP [Catalytic activity/Vol] 59 U/L Normal 46-116 [facility] Comment on above: Performed By: #### L IVER, LIPID, TSH, FT3, T4 #### [facility] [address] [place] [address] Dr. Frank Hills ALT [Catalytic activity/Vol] 23 U/L Normal 14-59 [facility] Comment on above: Performed By: #### L IVER, LIPID, TSH, FT3, T4 #### [facility] [address] [place] [address] Dr. Frank Hills Anion gap [Moles/Vol] 10.2 mmol/L Normal [facility] Comment on above: Performed By: #### L IVER, LIPID, TSH, FT3, T4 #### [facility] [address] [place] [address] Dr. Frank Hills AST [Catalytic activity/Vol] 24 U/L Normal 15-37 [facility] Comment on above: Performed By: #### L IVER, LIPID, TSH, FT3, T4 #### [facility] [address] [place] [address] Dr. Frank Hills Bilirubin [Mass/Vol] 0.6 mg/dL Normal 0.2-1.0 [facility] Comment on above: Performed By: #### L IVER, LIPID, TSH, FT3, T4 #### [facility] [address] [place] [address] Dr. Frank Hills Calcium [Mass/Vol] 8.9 mg/dL Normal 8.5-10.1 [facility] Comment on above: Performed By: #### L IVER, LIPID, TSH, FT3, T4 #### [facility] [address] [place] [address] Dr. Frank Hills Chloride [Moles/Vol] 105 mmol/L Normal 98-107 [facility] Comment on above: Performed By: #### L IVER, LIPID, TSH, FT3, T4 #### [facility] [address] [place] [address] Dr. Frank Hills CO2 [Moles/Vol] 30.0 mmol/L Normal 21.0-32.0 [facility] Comment on above: Performed By: #### L IVER, LIPID, TSH, FT3, T4 #### [facility] [address] [place] [address] Dr. Frank Hills Creatinine [Mass/Vol] 0.64 mg/dL Normal 0.55-1.02 [facility] Comment on above: Performed By: #### L IVER, LIPID, TSH, FT3, T4 #### [facility] [address] [place] [address] Dr. Frank Hills EGFR-AF BELARUSIAN >60 Normal >=60 [facility] Comment on above: Performed By: #### L IVER, LIPID, TSH, FT3, T4 #### [facility] [address] [place] [address] Dr. Frank Hills EGFR-NON AF BELARUSIAN >60 Normal >=60 [facility] Comment on above: Performed By: #### L IVER, LIPID, TSH, FT3, T4 #### [facility] [address] [place] [address] Dr. Frank Hills Globulin (S) [Mass/Vol] 3.0 g/dL Normal [facility] Comment on above: Performed By: #### L IVER, LIPID, TSH, FT3, T4 #### [facility] [address] [address] [address] Frank Hills Glucose [Mass/Vol] 97 mg/dL Normal 74-106 [facility] Comment on above: Performed By: #### L IVER, LIPID, TSH, FT3, T4 #### [facility] [address] [place] [address] Dr. Frank Hills Potassium [Moles/Vol] 4.2 mmol/L Normal 3.5-5.1 [facility] Comment on above: Performed By: #### L IVER, LIPID, TSH, FT3, T4 #### [facility] [address] [place] [address] Dr. Frank Hills Protein [Mass/Vol] 6.7 g/dL Normal 6.4-8.2 [facility] Comment on above: Performed By: #### L IVER, LIPID, TSH, FT3, T4 #### [facility] [address] [place] [address] Dr. Frank Hills Sodium [Moles/Vol] 141 mmol/L Normal 136-145 [facility] Comment on above: Performed By: #### L IVER, LIPID, TSH, FT3, T4 #### [facility] [address] [place] [address] Dr. Frank Hills Urea nitrogen [Mass/Vol] 13.0 mg/dL Normal 7.0-18.0 [facility] Comment on above: Performed By: #### L IVER, LIPID, TSH, FT3, T4 #### [facility] [address] [address] [address] Frank Hills Urea nitrogen/Creatinine [Mass ratio] 20.3 mg/mg Normal [facility] Comment on above: Performed By: #### L IVER, LIPID, TSH, FT3, T4 #### [facility] [address] [place] [address] Dr. Frank Hills SED RATE WESTERGREN 2021 SED RATE 8 mm/hr Normal <=30 [facility] Comment on above: Performed By: #### L IVER, LIPID, TSH, FT3, T4 #### [facility] [address] [place] [address] Dr. Frank Hills UA RANDOM W/MICROSCOPICon BACTERIA NONE SEEN Normal NONE SEEN [facility] Comment on above: Performed By: #### L IVER, LIPID, TSH, FT3, T4 #### [facility] [address] [place] [address] Dr. Frank Hills Bilirubin Ql (U) Negative Normal NEGATIVE [facility] Comment on above: Performed By: #### L IVER, LIPID, TSH, FT3, T4 #### [facility] [address] [place] [address] Dr. Frank Hills CAST NONE SEEN Normal NONE SEEN [facility] Comment on above: Performed By: #### L IVER, LIPID, TSH, FT3, T4 #### [facility] [address] [place] [address] Dr. Frank Hills Clarity (U) CLEAR Normal CLEAR [facility] Comment on above: Performed By: #### L IVER, LIPID, TSH, FT3, T4 #### [facility] [address] [place] [address] Dr. Frank Hills Color (U) LT. YELLOW Normal YELLOW [facility] Comment on above: Performed By: #### L IVER, LIPID, TSH, FT3, T4 #### [facility] [address] [place] [address] Dr. Frank Hills Crystals LM Nom (Urine sed) NONE SEEN Normal NONE SEEN [facility] Comment on above: Performed By: #### L IVER, LIPID, TSH, FT3, T4 #### [facility] [address] [place] [address] Dr. Frank Hills Epithelial cells LM Ql (Urine sed) FEW Abnormal NONE SEEN /RARE [facility] Comment on above: Performed By: #### L IVER, LIPID, TSH, FT3, T4 #### [facility] [address] [place] [address] Dr. Frank Hills Glucose Ql (U) Negative Normal NEGATIVE [facility] Comment on above: Performed By: #### L IVER, LIPID, TSH, FT3, T4 #### [facility] [address] [place] [address] Dr. Frank Hills Hemoglobin Ql (U) Negative Normal NEGATIVE [facility] Comment on above: Performed By: #### L IVER, LIPID, TSH, FT3, T4 #### [facility] [address] [place] [address] Dr. Frank Hills Ketones Ql (U) Negative Normal NEGATIVE [facility] Comment on above: Performed By: #### L IVER, LIPID, TSH, FT3, T4 #### [facility] [address] [place] [address] Dr. Frank Hills LEUKOCYTES TRACE Abnormal NEGATIVE [facility] Comment on above: Performed By: #### L IVER, LIPID, TSH, FT3, T4 #### [facility] [address] [place] [address] Dr. Frank Hills MUCOUS NONE SEEN Normal NONE SEEN [facility] Comment on above: Performed By: #### L IVER, LIPID, TSH, FT3, T4 #### [facility] [address] [place] [address] Dr. Frank Hills Nitrite Ql (U) Negative Normal NEGATIVE [facility] Comment on above: Performed By: #### L IVER, LIPID, TSH, FT3, T4 #### [facility] [address] [place] [address] Dr. Frank Hills pH (U) 6.5 [pH] Normal 5-9 [facility] Comment on above: Performed By: #### L IVER, LIPID, TSH, FT3, T4 #### [facility] [address] [place] [address] Dr. Frank Hills RBC 0-2 Normal 0-2 [facility] Comment on above: Performed By: #### L IVER, LIPID, TSH, FT3, T4 #### [facility] [address] [address] [address] Frank Hills SPEC GRAVITY 1.025 Normal 1.005-<=1.025 [facility] Comment on above: Performed By: #### L IVER, LIPID, TSH, FT3, T4 #### [facility] [address] [address] [address] Frank Hills UA PROTEIN Negative Normal NEGATIVE/ TRACE [facility] Comment on above: Performed By: #### L IVER, LIPID, TSH, FT3, T4 #### [facility] [address] [place] [address] Dr. Frank Hills Urobilinogen Qn (U) 0.2 {Flaquita'U}/dL Normal 0.2 - 1. 0 [facility] Comment on above: Performed By: #### L IVER, LIPID, TSH, FT3, T4 #### [facility] [address] [address] [address] Frank Hills WBC 0-2 Abnormal NONE SEEN [facility] Comment on above: Performed By: #### L IVER, LIPID, TSH, FT3, T4 #### [facility] [address] [address] [address] Frank Hills C3 and C4 COMPLEMENTon 04-21 Complement C3, Serum 171 mg/dL Critically high 82-167 [facility] Comment on above: Performed By: #### L IVER, LIPID, TSH, FT3, T4 #### [facility] [address] [address] [address] Frank Hills Complement C4, Serum 40 mg/dL Critically high 12-38 [facility] Comment on above: Performed By: #### L IVER, LIPID, TSH, FT3, T4 #### [facility] [address] [address] [address] Frank Hills COMPLEMENT TOTAL (CH50)on Complement, Total (CH50) >60 Normal >41 [facility] Comment on above: Result Comment: Age [...] L IVER, LIPID, TSH, FT3, T4 #### [facility] [address] [place] [address] Dr. Frank Hills CBC AUTO DIFFon 04-20-2022 BASO # 0.0 103/ul Normal 0.0-0.1 [facility] Comment on above: Performed By: #### L IVER, LIPID, TSH, FT3, T4 #### [facility] [address] [place] [address] Dr. Frank Hills Basophils/100 WBC (Bld) 0.4 % Normal 0.2-2.0 [facility] Comment on above: Performed By: #### L IVER, LIPID, TSH, FT3, T4 #### [facility] [address] [place] [address] Dr. Frank Hills EO # 0.1 103/ul Normal 0.0-0.7 [facility] Comment on above: Performed By: #### L IVER, LIPID, TSH, FT3, T4 #### [facility] [address] [place] [address] Dr. Frank Hills Eosinophils/100 WBC (Bld) 1.7 % Normal 0.9-7.0 [facility] Comment on above: Performed By: #### L IVER, LIPID, TSH, FT3, T4 #### [facility] [address] [place] [address] Dr. Frank Hills Erythrocyte distribution width (RBC) [Ratio] 13.2 % Normal 11.0-15.0 [facility] Comment on above: Performed By: #### L IVER, LIPID, TSH, FT3, T4 #### [facility] [address] [place] [address] Dr. Frank Hills Hematocrit (Bld) [Volume fraction] 39.6 % Normal 36.0-48.0 [facility] Comment on above: Performed By: #### L IVER, LIPID, TSH, FT3, T4 #### [facility] [address] [place] [address] Dr. Frank Hills Hemoglobin (Bld) [Mass/Vol] 12.7 g/dL Normal 12.0-16.0 [facility] Comment on above: Performed By: #### L IVER, LIPID, TSH, FT3, T4 #### [facility] [address] [place] [address] Dr. Frank Hills IG # 0.02 10e3/ul Normal 0.00-0.03 [facility] Comment on above: Performed By: #### L IVER, LIPID, TSH, FT3, T4 #### [facility] [address] [place] [address] Dr. Frank Hills IG % 0.4 % Normal 0.0-0.5 [facility] Comment on above: Performed By: #### L IVER, LIPID, TSH, FT3, T4 #### [facility] [address] [place] [address] Dr. Frank Hills LYMPH # 0.9 103/ul Critically low 1.2-3.8 [facility] Comment on above: Performed By: #### L IVER, LIPID, TSH, FT3, T4 #### [facility] [address] [place] [address] Dr. Frank Hills Lymphocytes/100 WBC (Bld) 17.3 % Critically low 20.5-60.0 [facility] Comment on above: Performed By: #### L IVER, LIPID, TSH, FT3, T4 #### [facility] [address] [place] [address] Dr. Frank Hills MANUAL DIFF REQ NO Normal [facility] Comment on above: Performed By: #### L IVER, LIPID, TSH, FT3, T4 #### [facility] [address] [place] [address] Dr. Frank Hills MCH (RBC) [Entitic mass] 33.7 pg Normal 26.7-34.0 [facility] Comment on above: Performed By: #### L IVER, LIPID, TSH, FT3, T4 #### [facility] [address] [place] [address] Dr. Frank Hills MCHC (RBC) [Mass/Vol] 32.1 g/dL Normal 29.9-35.2 [facility] Comment on above: Performed By: #### L IVER, LIPID, TSH, FT3, T4 #### [facility] [address] [place] [address] Dr. Frank Hills MCV (RBC) [Entitic vol] 105.0 fL Critically high 81.0-99.0 [facility] Comment on above: Performed By: #### L IVER, LIPID, TSH, FT3, T4 #### [facility] [address] [place] [address] Dr. Frank Hills MONO # 0.5 103/ul Normal 0.3-0.8 [facility] Comment on above: Performed By: #### L IVER, LIPID, TSH, FT3, T4 #### [facility] [address] [place] [address] Dr. Frank Hills Monocytes/100 WBC (Bld) 8.9 % Normal 1.7-12.0 [facility] Comment on above: Performed By: #### L IVER, LIPID, TSH, FT3, T4 #### [facility] [address] [place] [address] Dr. Frank Hills NEUT # 3.7 103/ul Normal 1.4-6.5 [facility] Comment on above: Performed By: #### L IVER, LIPID, TSH, FT3, T4 #### [facility] [address] [place] [address] Dr. Frank Hills Neutrophils/100 WBC (Bld) 71.3 % Normal 43.0-75.0 [facility] Comment on above: Performed By: #### L IVER, LIPID, TSH, FT3, T4 #### [facility] [address] [address] [address] Frank Hills Platelet mean volume (Bld) [Entitic vol] 8.9 fL Critically low 9.5-13.5 [facility] Comment on above: Performed By: #### L IVER, LIPID, TSH, FT3, T4 #### [facility] [address] [place], [place] [address] Dr. Frank Hills PLT 198 103/ul Normal 150-450 [facility] Comment on above: Performed By: #### L IVER, LIPID, TSH, FT3, T4 #### [facility] [address] [place], [place] [address] Dr. Frank Hills RBC 3.77 106/ul Critically low 4.20-5.40 [facility] Comment on above: Performed By: #### L IVER, LIPID, TSH, FT3, T4 #### [facility] [address] [address] [address] Frank Hills WBC 5.2 103/ul Normal 4.0-11.0 [facility] Comment on above: Performed By: #### L IVER, LIPID, TSH, FT3, T4 #### [facility] [address] [address] [address] Frank Hills MRI BRAIN [facility] MRI BRAIN [facility] EXAMINATION: MRI BRA IN [facility], 04/20/2022 9:23 AM EDT HISTORY: Headache COMPARISON: [...] CHARO MAY Date: 2022-04-20 16:44 Normal The [facility] PROF 14(COMP METB)on 022 Albumin [Mass/Vol] 4.0 g/dL Normal 3.4-5.0 [facility] Comment on above: Performed By: #### L IVER, LIPID, TSH, FT3, T4 #### [facility] [address] [place] [address] Dr. Frank Hills Albumin/Globulin [Mass ratio] 1.1 {ratio} Normal [facility] Comment on above: Performed By: #### L IVER, LIPID, TSH, FT3, T4 #### [facility] [address] [place] [address] Dr. Frank Hills ALP [Catalytic activity/Vol] 68 U/L Normal 46-116 [facility] Comment on above: Performed By: #### L IVER, LIPID, TSH, FT3, T4 #### [facility] [address] [place] [address] Dr. Frank Hills ALT [Catalytic activity/Vol] 35 U/L Normal 14-59 [facility] Comment on above: Performed By: #### L IVER, LIPID, TSH, FT3, T4 #### [facility] [address] [place] [address] Dr. Frank Hills Anion gap [Moles/Vol] 10.1 mmol/L Normal [facility] Comment on above: Performed By: #### L IVER, LIPID, TSH, FT3, T4 #### [facility] [address] [place] [address] Dr. Frank Hills AST [Catalytic activity/Vol] 31 U/L Normal 15-37 [facility] Comment on above: Performed By: #### L IVER, LIPID, TSH, FT3, T4 #### [facility] [address] [address] [address] Frank Hills Bilirubin [Mass/Vol] 0.9 mg/dL Normal 0.2-1.0 [facility] Comment on above: Performed By: #### L IVER, LIPID, TSH, FT3, T4 #### [facility] [address] [address] [address] Frank Hills Calcium [Mass/Vol] 9.0 mg/dL Normal 8.5-10.1 [facility] Comment on above: Performed By: #### L IVER, LIPID, TSH, FT3, T4 #### [facility] [address] [place] [address] Dr. Frank Hills Chloride [Moles/Vol] 104 mmol/L Normal 98-107 [facility] Comment on above: Performed By: #### L IVER, LIPID, TSH, FT3, T4 #### [facility] [address] [place] [address] Dr. Frank Hills CO2 [Moles/Vol] 29.7 mmol/L Normal 21.0-32.0 [facility] Comment on above: Performed By: #### L IVER, LIPID, TSH, FT3, T4 #### [facility] [address] [place] [address] Dr. Frank Hills Creatinine [Mass/Vol] 0.68 mg/dL Normal 0.55-1.02 [facility] Comment on above: Performed By: #### L IVER, LIPID, TSH, FT3, T4 #### [facility] [address] [place] [address] Dr. Frank Hills EGFR-AF BELARUSIAN >60 Normal >=60 [facility] Comment on above: Performed By: #### L IVER, LIPID, TSH, FT3, T4 #### [facility] [address] [place] [address] Dr. Frank Hills EGFR-NON AF BELARUSIAN >60 Normal >=60 [facility] Comment on above: Performed By: #### L IVER, LIPID, TSH, FT3, T4 #### [facility] [address] [place] [address] Dr. Frank Hills Globulin (S) [Mass/Vol] 3.5 g/dL Normal [facility] Comment on above: Performed By: #### L IVER, LIPID, TSH, FT3, T4 #### [facility] [address] [place] [address] Dr. Frank Hills Glucose [Mass/Vol] 92 mg/dL Normal 74-106 [facility] Comment on above: Performed By: #### L IVER, LIPID, TSH, FT3, T4 #### [facility] [address] [place] [address] Dr. Frank Hills Potassium [Moles/Vol] 3.8 mmol/L Normal 3.5-5.1 [facility] Comment on above: Performed By: #### L IVER, LIPID, TSH, FT3, T4 #### [facility] [address] [place] [address] Dr. Frank Hills Protein [Mass/Vol] 7.5 g/dL Normal 6.4-8.2 [facility] Comment on above: Performed By: #### L IVER, LIPID, TSH, FT3, T4 #### [facility] [address] [place] [address] Dr. Frank Hills Sodium [Moles/Vol] 140 mmol/L Normal 136-145 [facility] Comment on above: Performed By: #### L IVER, LIPID, TSH, FT3, T4 #### [facility] [address] [place] [address] Dr. Frank Hills Urea nitrogen [Mass/Vol] 14.0 mg/dL Normal 7.0-18.0 [facility] Comment on above: Performed By: #### L IVER, LIPID, TSH, FT3, T4 #### [facility] [address] [place] [address] Dr. Frank Hills Urea nitrogen/Creatinine [Mass ratio] 20.6 mg/mg Normal [facility] Comment on above: Performed By: #### L IVER, LIPID, TSH, FT3, T4 #### [facility] [address] [place] [address] Dr. Frank Hills SED [facility] IS[facility] 2021 SED RATE 6 mm/hr Normal <=30 [facility] Comment on above: Performed By: #### S EDR #### [facility] [address] [place] [address] Dr. Frank Hills UA RANDOM W/MICROSCOPICon BACTERIA NONE SEEN Normal NONE SEEN [facility] Comment on above: Performed By: #### L IVER, LIPID, TSH, FT3, T4 #### [facility] [address] [place] [address] Dr. Frank Hills Bilirubin Ql (U) Negative Normal NEGATIVE [facility] Comment on above: Performed By: #### L IVER, LIPID, TSH, FT3, T4 #### [facility] [address] [place] [address] Dr. Frank Hills CAST NONE SEEN Normal NONE SEEN [facility] Comment on above: Performed By: #### L IVER, LIPID, TSH, FT3, T4 #### [facility] [address] [place] [address] Dr. Frank Hills Clarity (U) CLEAR Normal CLEAR [facility] Comment on above: Performed By: #### L IVER, LIPID, TSH, FT3, T4 #### [facility] [address] [place] [address] Dr. Frank Hills Color (U) LT. YELLOW Normal YELLOW [facility] Comment on above: Performed By: #### L IVER, LIPID, TSH, FT3, T4 #### [facility] [address] [place] [address] Dr. Frank Hills Crystals LM Nom (Urine sed) NONE SEEN Normal NONE SEEN [facility] Comment on above: Performed By: #### L IVER, LIPID, TSH, FT3, T4 #### [facility] [address] [place] [address] Dr. Frank Hills Epithelial cells LM Ql (Urine sed) RARE Normal NONE SEEN /RARE [facility] Comment on above: Performed By: #### L IVER, LIPID, TSH, FT3, T4 #### [facility] [address] [address] [address] Frank Hills Glucose Ql (U) Negative Normal NEGATIVE [facility] Comment on above: Performed By: #### L IVER, LIPID, TSH, FT3, T4 #### [facility] [address] [place] [address] Dr. Frank Hills Hemoglobin Ql (U) Negative Normal NEGATIVE [facility] Comment on above: Performed By: #### L IVER, LIPID, TSH, FT3, T4 #### [facility] [address] [place] [address] Dr. Frank Hills Ketones Ql (U) Negative Normal NEGATIVE [facility] Comment on above: Performed By: #### L IVER, LIPID, TSH, FT3, T4 #### [facility] [address] [place] [address] Dr. Frank Hills LEUKOCYTES Negative Normal NEGATIVE [facility] Comment on above: Performed By: #### L IVER, LIPID, TSH, FT3, T4 #### [facility] [address] [place] [address] Dr. Frank Hills MUCOUS TRACE Abnormal NONE SEEN [facility] Comment on above: Performed By: #### L IVER, LIPID, TSH, FT3, T4 #### [facility] [address] [place] [address] Dr. Frank Hills Nitrite Ql (U) Negative Normal NEGATIVE [facility] Comment on above: Performed By: #### L IVER, LIPID, TSH, FT3, T4 #### [facility] [address] [place] [address] Dr. Frank Hills pH (U) 6.0 [pH] Normal 5-9 [facility] Comment on above: Performed By: #### L IVER, LIPID, TSH, FT3, T4 #### [facility] [address] [place] [address] Dr. Frank Hills RBC NONE SEEN Abnormal 0-2 [facility] Comment on above: Performed By: #### L IVER, LIPID, TSH, FT3, T4 #### [facility] [address] [place] [address] Dr. Frank Hills SPEC GRAVITY 1.020 Normal 1.005-<=1.025 [facility] Comment on above: Performed By: #### L IVER, LIPID, TSH, FT3, T4 #### [facility] [address] [address] [address] Frank Hills UA PROTEIN Negative Normal NEGATIVE/ TRACE [facility] Comment on above: Performed By: #### L IVER, LIPID, TSH, FT3, T4 #### [facility] [address] [address] [address] Frank Hills Urobilinogen Qn (U) 0.2 {Flaquita'U}/dL Normal 0.2 - 1. 0 [facility] Comment on above: Performed By: #### L IVER, LIPID, TSH, FT3, T4 #### [facility] [address] [address] [address] Frank Hills WBC NONE SEEN Normal NONE SEEN [facility] Comment on above: Performed By: #### L IVER, LIPID, TSH, FT3, T4 #### [facility] [address] [address] [address] Frank Hills Ambulatory Clinical Summaryo 10-27-2021 Ambulatory Clinical Summary {[id number] Normal [facility] Patient Educationon 10-27-20 Patient Education [...] stimulation). ? For women, using a medical concierge to prevent urine leaks. This is a [...] after experiencing incontinence. General instructions ? Take qqrj-brz-bmaofyy and prescription medicines only as (more content not included)... Normal [facility] Urology Office/Clinic Noteon 10-27-2021 Urology [...] urine and/or bladder capacity by US- non-imaging 02850 Urnls Dip Stick Auto w/o Microscopy POC 12417 I have reviewed the previous health record information and history for this patient from Dr. Ramos Follow-up With When Contact Information Richard Leal MD, Maximo Dhaliwal, URO Only if needed [facility] [address], [place] [address]- Additional Instructions: Patient Education Urinary Incontinence I, [...] Diverticulosis Dysuria Encounter for screening colonoscopy for ceb-jecp-slzh patient Hemifacial spasm History of shingles Hyperlipidemia Hypertension Hyperthyroidism Insomnia Nocturia Osteoarthritis Polyneuropathy Post-void dribbling Raynaud phenomenon Recurrent UTI Rosacea Urethral stricture Historical No qualifying data Procedure/Surgical History Hip replacement (12/13/2016), Fusion of lumbar spine (12/06/2011), Ablation (08/18/2005), Excision of sebaceous cyst (08/27/1999), Arthroscopy of knee, Dilatation and curettage, Excision of ganglion cyst, E (more content not included)... Normal [facility] Comment on above: Result Comment: Elec tronically Signed By: Richard Leal MD, Maximo Dhaliwal\.br\Date and Time Signed: 10/27/21 11:16 EST\.br\Electronically Co-Signed By: Snow Lundberg MA\.br\Date and Time Co-Signed: 10/27/21 11:12 EST Ambulatory Clinical Summaryo n 04-23-2021 Ambulatory Clinical Summary {[id number]}CD:[id number] Normal [facility] Patient Educationon 04-23-20 Patient Education [...] It is (more content not included)... Normal [facility] Urology Office/Clinic Noteon 04-23-2021 Urology [...] procedure, # 2 cap(s), Refills(s) 0, Pharmacy: [facility]/pharmacy #[id number], 172.7, cm, 02/24/21 8:22:00 EDT, Height/Length Dosing, 99.8, kg, 02/24/21 8:21:00 EDT... Urnls Dip Stick Auto w/o Microscopy POC 02077 I have reviewed the previous health record information and history for this pt. from Dr. Ramos. Follow-up With When Contact Information Richard Leal MD, Maximo Dhaliwal, URO [address] [id number]- Additional Instructions: 6mos. pvr Patient Education Urinary [...] Diverticulosis Dysuria Encounter for screening colonoscopy for wgd-wmbh-idsu patient Hemifacial spasm History of shingles Hyperlipidemia Hypertension Hyperthyroidism Insomnia Osteoarthritis Polyneuropathy (more content not included)... Normal [facility] Comment on above: Result Comment: Elec tronically Signed By: Richard Leal MD, Maximo Dhaliwal\.br\Date and Time Signed: 04/23/21 12:21 EDT\.br\Electronically Co-Signed By: Indu Gonzalez MA\.br\Date and Time Co-Signed: 04/23/21 11:40 EDT Coding Summary.on 03-16-2021 Coding Summary. CD:[id number] Gh 0bWw+PGhlYWQ+GJ6ODFQvT 12mpQTjqW0UZ5mEHX9NJNY PUMFGCP1WPC2zfPY6IAbzY 2VybiAv TdimvMNxTI63JWx8FFU1fU kfSZofkV3biVYmI7t5QzNs LB13jA21ETyfLTOaYuE2Ls ZpbjsgbWFy F2cuGbTkjOJqKav+PHRhYm xlIHdpZHRoPScxMDAlJyBz zFmaCG2cQr7aYODfWIEyzS xhcHNlOiBj s0nsYDXvOXjcOO3xhWitV7 RewCN2UYBsh9v7Ry08oDI+ ONOySND3tYqvGPfgv485Fl Mks1pyNNS4 zRKhQBtgQMP3L39qs3M3TX CkDVLrPOE9aFP8yQ3rsKei yboaF6RywEXxZdK5NCD5uW VuxU2srKok gbesgN8pGmm+M52GIJ6PJE XFLV0HPcv7Z4WdZlcvnKU+ DL76ALZsZY08fHDzjTAor4 cjfWl1AtRe XTFeYWO5aAfoBZouq5OzJZ MzX87voOQuz7A3QPVfhDcb mLCgAgBupLG4zJ3vLVqpqo ocv9ruagux Dtjfd7knqu64vR38L18iKI usFTTuHJL7VLDaQHUwnWfc nw9egD5lNd8+JYfjc0yor9 wauTp9NbRw LBQcxhQqnCymWEV4d9XxGk 91V0CbjSmik0VtWqu6ik46 aKMol6C7bWN2GGrgATYwcB 5bCKgeUeU7 SDDxNvIzaG04fJOqYJegLq 8giAwmfAjdHD8eEHNtjlog YOLytJ5cRITylIQxoTplLZ 4wNTBpbjtm g415ZtCiDAH6NVDwbGAcL3 DyyH9eUaSvOIRkJUZaE7Nw xTMePVweA768ZUeiWcY5EA AlzxSzU1Vk DPDkyHnhNrU1v2M4Te6Vi8 NijkonTRU5IUicAGJ7TwUz NcWuQdT6Z6WmIbt1KVOalB idMS1tD1Kh RRNctqzxntiztYG4QZOiAJ PxbL97uCGiWNppTg4di5Y0 c852NFUoPMHngU95Qx6smX ogMTBwdCBU oX7jpyqyf1kxfsgcCrYpOE RdQJf7ESc6NMFcgIbeCiWp IBH6MgQ7CFJ2lKEueF5qaU lflhamkR3x Oyc+T79agR2sNQP7XFT3ep pwRQTnnzVyJY72IO36D0Fb PjwvdGFibGU+PGRpdiBzdH qiBN5xXnDz l3dsg9WdTQllN4RhRNEgYI grErw1QWBtRZW6jKI0rM2u YBYlAKbng5Z9iNK5J8Uipd Rrof5xk6ja KUWiFAnsQ75umZBjk9O3IQ GxiWA6IYYoaIvlVkCppG31 Oyc+FTHlbZpij3HtFrjml9 uir9ehiJq5 IiIgIDYxoxCzpLggOWR9n8 CfLd81U25lOIdwGOEnZGNl ZZCfMPQwbPovdg7qfA6qOm 8+PGNvbCB3 jTI0mO1mAMHyHjZ8DRxrU3 77MsFncILmDjmcv4aud3hh uVn1ItVyNWJzrwMciNzyLW N8m3TuKb46 X80aAEddDIZeXOKgUAGsHK StvSxfea2owB9vBx3+PC9j n5mgbd51xP05sNI+PHRkIH D1wCwsUWqe HLObvN2nBAjrLzY2CLLsEz XleY63bOBnKBypRy7zrKuq hMueTP2aFAJieitkx830Zj Uop9bjAIGd rLXbKRnkOQI3H94qk1V8EF KaJXYeCLY2uVC2mQ0twWzp bjogbGVmdDsgdmVydGljYW yiIDupM623 IHRvcDsnPlBhdGllbnQgTm XpQYe9G4KiFkr1RNKcxBkj HT6fzFJfSNhnJg0jhTlgxB uhVO4zUVKr wbrff290AlZmj9ljYWHsxB BaCWyeUCL2S47ne9X4HWBm SKIuMQX2iOA7uM8iiYcosk ogbGVmdDsg yqAhgYgmJCodCEeiL863VO RvcDsnPkJpcnRoIERhdGU6 FB61HE49aPEhz4S8qEL9L0 BhZGRpbmct euhozPE8XVClGWKozI01Ju 5hnHyaGb7nRRTeMAJ4XSFo mCAhO1WlpE4sQzDsUUIoEI OwW9CjrSNn GVczW289DGejMvB2QVVoka EgP8ZaRXWyiZouCnS2x1S8 Sg0TR2W2AE17TP32hEZmm2 L1sDO5H1Wc UMXhwcsbjwuwaTF5ZVKuSH QucK45Xe5diCstRo4uRKQr KMB5JBFyzGGfN2CiqL3pRs AjMDAwMDAw N0GgwDRzHZdzH335RMhnBl N5FRJnbsMwA0ObSSMrrGtk WlT0s1B0Wi9YZLr7OK77ZH 34vXPsm1L3 yHB7U2JtHVGjwslhoyoryE K7NDSfFVXnsM17Af8ofUcp My8lHQClQNV5TYGhaFRzA1 AxkO6tXgBp AUWtIFQfX5LlbOVfYWvtD7 71ZJewHjL1PKJmbsGoJ9Hd LOJgiDuaFaL0s7R0Af8VRI GqVU91EVH2 kUK7YT03FB30L8BdMnouiO FibGU+PHRhYmxlIHdpZHRo FAguUNJuRaSymVolTK0eKq 9yZGVyLWNv nMcleTGcDlFdd3svILAiEM jhCV6wnGivJ5KlzKP9NTXb b8h3Oj34D64mI0YpsFZ+PG KhbGH4hYH0 lZ6eRiNmDtU3IRivF141Sj PhbTPzCyaxm3qgq1gmqLf6 MyF8LKDwdiPgqDbwJWD0m3 LwGj71D11s IHdpZHRoPSIxNSUiIHZhbG vnal9azZ2jMp7+PGNvbCB3 xDD8cZ9vOqZtPoA7BJvmN7 49InRvcCIv Dcadc9arg2hurTg8EuSxLA ScehLyaLafJIR9q8YhKj52 N9VvdZtcf9ZmXmx1kt72kO Dwe0G3nSZ2 J2SjDESxydxxtPZcvAqhZM 5vSYVrvwpgDKTioD7dSARb N3d9XnIqQbI7NKxdG9Ruyg W6DEEbxOHs WYnoKRD5F90pu3E9PIQdSB ZbCCO4sPW1xW2ryLnixqzz bGVmdDsgdmVydGljYWwtYW xdS233SCWb wHqpRASvmR5gVYCpfHOvmN hkAY7aOZCvvdrzOdMOC5kn PJNOBVlCBWp4D2BoYkq1MI SwuVieGK8p fXYcYLnbPu7uaFvryGnkAC 2dVVZqohvkZGSmuE1dQHNj rMDtyUoeRG2sTBRvvsbff2 24JyCrSMY1 AGZujEDkC3PfjZ9sDpBhZX OmNMLtT5GpzMExQVpuJ027 HTlrAdJ8VKCdagYyO4OhVV FsaWduOiB0 z0M6Wb0cPV8tOe5nCOKqXI 41QK79mIDix0R7eCR7Z2Ek XRKbuiqtujxkcYL2GRFwGY BhyQ54fIBm LJwfOn7mo0A1c428REMiQQ ZfoG88Xo7hbMsvOCOsrQHD kB0gbjtmr9qjsnndZoKrSF AsJAz7OMq8 JCBafSeoWqIwIDR7FcJ8YI K5yICiyI6owVjmkexgmZ1i Oyc+TjeaNBThdrV7Y1WlJq p8FUZqiKma FM4drHUcQWwiJi9xyNcxlI ulZC0dFQQyxhjsNELeiH3u YMAdlOSesPxzZG2bPPBjmt yiw504PeDk NWW2IVRloEXmZ8RbtU1uLe NlOFGxPXVbS8TcoQSrHGsc E637OHpsCqN4RRPhlpUnY7 FsLWFsaWdu GdB9z6L7Qh2KFJ0ehJW3G3 ZwTtd5MQYfpEbqGQ3gzROm NHbsXq8amLqzrPxqLG3jJQ BpbjtwYWRk oP4cXLOukWPvlRtxYC6tLH Frblobj754BxReCKB3XZAa gIQvM8HvkQ5oLwUbDFIuKZ QaO4YscECb LDcyL068VOwuNmB4DXTtju IuP0DsQROksSmnTtW2b3G4 Cl1LwCWkPCRnPX87DB22HL 06L3UwZoje dGFibGU+PHRhYmxlIHdpZH FbVZtfCEMgSvAktZxoBS6s Vw9uEMHuWHRcnNmarRLpPa Enr4ccAEYc DUpmNS9zbWcnE8DwdFZ6NN Ooo4a5Yc70F48bZ7AzvIH+ HSPvfAU5cTB0hJ4aRxCrKi N0QTbiL403 QsWupSAaFvmul4sdd9cwoX w4TwUiJGCcwaBnoXwjEUS7 h6HzCz77J31tJMqlHZHqST IyMCUiIHZh oOplko9rzK1mPa3+PGNvbC K5mYE7wX7fZxLoPzD0RPkt V054XpRohQRzYufxO15qW6 JvdXA+PHRy Prk4THCrlCmeNZ6kwBJcWQ bnHf6xVZB2OhReMfRjZBpx F2EoGZKlmtfzxlesvRD4FY OcSMUgsE45 Ng8pzDghHn0sQFIzAET6YT DlgJNmA2CsqH1wImEmCDJh ONJdD6IzfNPyHPjlL330VF fwCbG2HJPm zwPiQ8SmYJWyxHljLoY8e8 T0Lm4OzTkjuYSbKG7pTvGi VEi2K1FcUxu2TRUujKyiQA 0ncGFkZGlu Gz5yrSdsaBuiFF4uOJUjwa iyf132HcNok5iqCZToeTPw RVykDAS3O33jp2M5UKJhAF RrAWH5uNM2 jC6waRvugsdhkDFpnRdfio EieCunAJrnBMqzG439GCXl iRggToOFOde2U3FzBcu6IJ HohGcjMC9e tGIqKOjcJd0pvPcdsCnsVP 6xSXQyuwbrq396JcSov7xi XMAhaCVuCCbeJSH2A44ld8 L5OBEdXVWn BWQ2kNE8hS5agXilwkbslI VmdDsgdmVydGljYWwtYWxp N538HMGenYshMk1LUoh3Z8 AiRbc5FQEe aJirTY9goEImKHblGk8wvW luwEzjGB1aMPEpyhogt580 MxVrb3rwLNNdpPTcMEpzEE B7D72fu5T3 DLPsVPUzUBU4sFU6zY7lfS lnbjogbGVmdDsgdmVydGlj BQocJTlmI725YAChaFtgFz BheWVyOjwv dGQ+WP05pe68D9AjGhqkFe o5QXWwBCO1xPV6vD9jWTZm CQjdu7R6vRC3G8ExutTuut 5ba4hjEDVm ZTog (more content not included)... Normal [facility] Consent for Procedure/Surger yon 03-16-2021 Consent for Procedure/Surgery [id number]#1. 00CD:127 Normal [facility] IntraOperative Documentson 0 03-16-2021 IntraOperative Documents [id number]#1. 00CD:127 Normal [facility] Consent for Treatmenton Consent for Treatment [id number] 0CD:127 Normal [facility] Main OR Intraoperative Recor don 03-12-2021 Main OR Intraoperative Record IntraOp Document Type FTURO Summary Primary Physician: Maximo Ramos Jr., MD Finalized Date/Time: 03/12/21 13:52:16 Pt. Name: DEAN HASKINSRashmi Coker/Sex: 1955 Female Med Rec #: [id number] Physician: Mxaimo Ramos Jr., MD Financial #: [id number] Pt. Type: O Room/Bed: / Admit/Disch: 03/12/21 12:55:35 - Institution: Case Times FTURO Entry 1 Patient Times In Room 03/12/21 13:44:00 Out Room 03/12/21 13:52:00 Procedure Times Start 03/12/21 13:48:00 Stop 03/12/21 13:50:00 Anesthesia Times Last Modified By: Savanna Azevedo RN 03/12/21 13:52:11 Case Attendance FTURO Entry 1 Entry 2 Entry 3 Case Attendee Richard Leal MDMaximo CST, Savanna Azevedo RN, Savanna Solis Role Performed Surgeon - Primary Scrub - Primary Title I Director - Primary Time In 03/12/21 13:44:00 03/12/21 [...] By: Savanna Azevedo RN 03/12/21 13:52 Normal [facility] Main OR Preoperative Recordo n 03-12-2021 Main OR Preoperative Record Holding Area Document Type FTURO Summary Primary Physician: Maximo Ramos Jr., MD Finalized Date/Time: 03/12/21 13:23:03 Pt. Name: DANYELLE HASKINS/Sex: 1955 Female Med Rec #: [id number] Physician: Maximo Ramos Jr., MD Financial #: [id number] Pt. Type: O Room/Bed: / Admit/Disch: 03/12/21 [...] 13:08 Savanna Azevedo RN 03/12/21 13:23 Normal [facility] Operative Reporton Operative Report Patient: [...] urine. The Urethra was dilated to: 28 Kazakh w/ sounds. Devices Implanted: None. Removal: Cystoscope is removed, The patient tolerated it well. Postoperative Information Discharge: Patient is discharged home with antibiotic coverage, Follow up arranged. [facility] Comment on above: Result Comment: Elec tronically [...] complications The patient was prepped with Betadine. [facility] RAD - Ultrasound Reporton RAD - Ultrasound Report [id number] 0CD:127 [facility] Physician Referralon 021 Physician Referral [id number] CD:127 [facility] Ambulatory Clinical Summaryo n 02-24-2021 Ambulatory Clinical Summary {[id number]}CD:[id number] Franc [facility]air [facility] Patient Educationon 02-25-20 21 Patient Education Urinary [...] Document Reviewed: 12/01/2012 ExitCare? Patient Information ?2013 [employer]. [facility] Urology Office/Clinic Noteon 02-24-2021 Urology Office/Clinic Note Chief Complaint New patient recurring UTI sxs This patient is a 65-year-old female with a history of recurrent urinary tract infections. She was recurrent infections. She is been treated several times with oral antibiotics for symptoms of dysuria frequency and urgency continue to recur. She is here today to discuss treatment options to establish urologic care. [facility] Staff New patient Danyelle is a 65 [...] Will order Local anesthesia. ABX sent to [facility] in [place]. Ordered: Urology Procedure Order US Renal 2. Dysuria (R30.0: Dysuria) Moderate. Ordered: Urnls Dip Stick Auto w/o Microscopy POC 55239 Urology Procedure Order US Renal 3. Nocturia [...] procedure, # 2 cap(s), Refills(s) 0, Pharmacy: [facility]/pharmacy #[id number], 172.7, cm, 02/24/21 8:22:00 EDT, Height/Length Dosing, 99.8, kg, 02/24/21 8:21:00 (more content not included)... Normal [facility] Comment on above: Result Comment: [...] complications The patient was prepped with Betadine. [employer] [address] UPPER EXTREMITY WO CONTRA ST RIGHTon 03-10-2020 CT UPPER EXTREMITY WO CONTRAST RIGHT [facility] Department of Radiology [address] [place] [address] ======== Patient Name: DANYELLE HASKINS [...] [phone] ortho clinic NO MEDICARE/BC CPT CODE 42209 *MLA Comments: right shoulder Exam: CT UPPER [...] reports Electronically signed: Abdelrahman Constantino. Transcribed by: [email or web address], User Resident: ISABELL MARKHAM Electronically Signed by: ABDELRAHMAN CONSTANTINO @ 03/10/2020 04:46 PM I personally read this/these film(s) with this resident Normal [facility] Comment on above: Order Comment: right shoulder SHOULDER RIGHTon 03-10-2020 SHOULDER RIGHT [facility] Department of Radiology [address] [place] [id number] ======== Patient Name: DANYELLE HASKINS : 1955 Sex: F Age: Race: White Pt. Location: 84 Patient Status: O Ordered Date: 03/10/2020 2:05:00 [...] reports Electronically signed: Abdelrahman Constantino. Transcribed by: [email or web address], User Resident: ISABELL MARKHAM Electronically Signed by: ABDELRAHMAN CONSTANTINO @ 03/10/2020 04:48 PM I personally read this/these film(s) with this resident Normal [facility] Comment on above: Order Comment: , Torysolomon ws (X-RAY, SHOULDER): Axillary , Weight Bearing?: [...] with no immediate complications Preparation: with Betadine. [facility] CBC, EDIF, PLATELETon 2018 ABSOLUTE BASOPHIL COUNT 0.[address] Basophils/100 WBC (Bld) 0.6 % 0 - 2 % [address] Differential cell count method Nom (Bld) AUTO DIFF % [address] Eosinophils #/vol (Bld) 0.00 10*3/uL X10 [address] Eosinophils/100 WBC (Bld) 1.0 % 0 - 11 % [address] Erythrocyte distribution width Ratio (RBC) 14.2 % 11.5 - 14.5 % [address] Hematocrit Volume Fraction (Bld) 33.5 % Low 36 - 48 % [address] Hemoglobin mass conc (Bld) 11.5 g/dL Low [address] Interpretation and review of laboratory results Abnormal [address] Lymphocytes #/vol (Bld) 0.70 10*3/uL X10 [address] Lymphocytes/100 WBC (Bld) 16.1 % Low 20 - 55 % [address] MCH Entitic mass (RBC) 34.6 pg 26 - [address] MCHC mass conc (RBC) 34.2 g/dL [place] [address] MCV Entitic volume (RBC) 101.1 fL High [address] Monocytes #/vol (Bld) 0.4 10*3/uL X10 [address] Monocytes/100 WBC (Bld) 9.9 % 0 - 10 % [address] Neutrophils #/vol (Bld) 3.3 10*3/uL [address] Neutrophils/100 WBC (Bld) 72.4 % 37 - 75 % [address] Platelet mean volume Entitic volume (Bld) 7.[address] Platelets #/vol (Bld) 191 10*3/uL [address] RBC #/vol (Bld) 3.31 10*6/uL Low [address] WBC #/vol (Bld) 4.5 10*3/uL [address] CBC, EDIF, PLATELETon 2018 ABSOLUTE BASOPHIL COUNT 0.[address] Basophils/100 WBC (Bld) 0.2 % 0 - 2 % [address] Differential cell count method Nom (Bld) AUTO DIFF % [address] Eosinophils #/vol (Bld) 0.00 10*3/uL X10 [address] Eosinophils/100 WBC (Bld) 0.1 % 0 - 11 % [address] Erythrocyte distribution width Ratio (RBC) 13.8 % 11.5 - 14.5 % [address] Hematocrit Volume Fraction (Bld) 30.2 % Low 36 - 48 % [address] Hemoglobin mass conc (Bld) 10.5 g/dL Low [address] Interpretation and review of laboratory results Abnormal [address] Lymphocytes #/vol (Bld) 0.50 10*3/uL X10 [address] Lymphocytes/100 WBC (Bld) 8.9 % Low 20 - 55 % [address] MCH Entitic mass (RBC) 34.8 pg 26 - [address] MCHC mass conc (RBC) 34.8 g/dL [place] [address] MCV Entitic volume (RBC) 99.[address] Monocytes #/vol (Bld) 0.6 10*3/uL X10 [address] Monocytes/100 WBC (Bld) 10.2 % High 0 - 10 % [address] Neutrophils #/vol (Bld) 4.5 10*3/uL [address] Neutrophils/100 WBC (Bld) 80.6 % High 37 - 75 % [address] Platelet mean volume Entitic volume (Bld) 7.[address] Platelets #/vol (Bld) 181 10*3/uL [address] RBC #/vol (Bld) 3.02 10*6/uL Low [address] WBC #/vol (Bld) 5.6 10*3/uL [address] CBC, EDIF, PLATELETon 2018 ABSOLUTE BASOPHIL COUNT 0.[address] Basophils/100 WBC (Bld) 0.2 % 0 - 2 % [address] Differential cell count method Nom (Bld) AUTO DIFF % [address] Eosinophils #/vol (Bld) 0.00 10*3/uL X10 [address] Eosinophils/100 WBC (Bld) 0.7 % 0 - 11 % [address] Erythrocyte distribution width Ratio (RBC) 13.9 % 11.5 - 14.5 % [address] Hematocrit Volume Fraction (Bld) 33.6 % Low 36 - 48 % [address] Hemoglobin mass conc (Bld) 11.5 g/dL Low [address] Interpretation and review of laboratory results Abnormal [address] Lymphocytes #/vol (Bld) 0.70 10*3/uL X10 [address] Lymphocytes/100 WBC (Bld) 14.4 % Low 20 - 55 % [address] MCH Entitic mass (RBC) 34.7 pg 26 - [address] MCHC mass conc (RBC) 34.1 g/dL [place] [address] MCV Entitic volume (RBC) 101.8 fL High [address] Monocytes #/vol (Bld) 0.5 10*3/uL X10 [address] Monocytes/100 WBC (Bld) 9.8 % 0 - 10 % [address] Neutrophils #/vol (Bld) 3.7 10*3/uL [address] Neutrophils/100 WBC (Bld) 74.9 % 37 - 75 % [address] Platelet mean volume Entitic volume (Bld) 7.[address] Platelets #/vol (Bld) 202 10*3/uL [address] RBC #/vol (Bld) 3.30 10*6/uL [address] WBC #/vol (Bld) 4.9 10*3/uL [address] REPEAT ABO/RH (D) TYPINGon 0 1-15-2019 ABO and Rh group Nom (Bld ) Positive [address] SCREEN: MRSA ONLY, NARES (IS OLATION SCREEN)on 11-21-2018 MRSA isol Org specific cx Ql (Nose) Negative [address] STAPHYOCOCCUS AUREUS BY PCR Negative [address] Comment on above: TESTING PERFORMED BY [...] Panelon 10-1 Calcium 9.2 mg/dL Normal 8.4-10.2 [facility] Comment on above: Performed By: #### C HEM8 ####Unless otherwise noted, all testing performed by [address] [phone]: [id number] Director: Ramon Araujo M.D. Chloride 110 mmol/L High 98-108 [facility] Comment on above: Performed By: #### C HEM8 ####Unless otherwise noted, all testing performed by [address] [phone]: [id number] Director: Ramon Araujo M.D. CO2 27 mmol/L Normal 21-32 [facility] Comment on above: Performed By: #### C HEM8 ####Unless otherwise noted, all testing performed by [address] [phone]: [id number] Director: Ramon Araujo M.D. Creatinine 0.60 mg/dL Normal 0.60-1.20 [facility] Comment on above: Performed By: #### C HEM8 ####Unless otherwise noted, all testing performed by [address] [phone]: [id number] Director: Ramon Araujo M.D. eGFR (black) mL/min/{1.73_m2} Normal [facility] Comment on above: Result Comment: Afri can Luxembourger GFR Calc Performed By: #### C HEM8 ####Unless otherwise noted, all testing performed by [address] [phone]: [id number] Director: Ramon Araujo M.D. eGFR (non-black) mL/min/{1.73_m2} Normal [facility] Comment on above: Result Comment: Non- GFR [...] ####Unless otherwise noted, all testing performed by [address], [place] [phone]: [id number] Director: Ramon Araujo M.D. Glucose mass conc 87 mg/dL Normal 70-99 [facility] Comment on above: Result Comment: This test result might be falsely depressed or falsely elevated onsamples drawn from patients taking Sulfasalazine and Sulfapyridine.Venipuncture should occur prior to taking either of these drugs. Performed By: #### C HEM8 ####Unless otherwise noted, all testing performed by [address] [phone]: [id number] Director: Ramon Araujo M.D. Potassium molar conc 4.2 mmol/L Normal 3.5-5.1 [facility] Comment on above: Performed By: #### C HEM8 ####Unless otherwise noted, all testing performed by [address] [phone]: [id number] Director: Ramon Araujo M.D. Sodium 143 mmol/L Normal 135-145 [facility] Comment on above: Performed By: #### C HEM8 ####Unless otherwise noted, all testing performed by [address] [phone]: [id number] Director: Ramon Araujo M.D. Urea nitrogen 10 mg/dL Normal 8-25 [facility] Comment on above: Performed By: #### C HEM8 ####Unless otherwise noted, all testing performed by [address] [phone]: [id number] Director: Ramon Araujo M.D. [facility] Repor ton 08-15-2017 [facility] Report Type: OrthopedicDictated by: To be signed by: Transcribed by: Transcribed D/ Dictation D/ Report: DATE OF VISIT: 08/11/2017 HISTORY OF PRESENT ILLNESS: Ms. Haskins underwent left patellar tendon repair and inferior partial patellectomy on 07/18/2017 three weeks ago. She is doing well. She is at a long-term with a knee immobilizer locked out in extension and has been non-weightbearing. She is doing very well. She is happy with her recovery to date. She is having minimal pain, using only Tylenol at this time. She is planning to be discharged from the long-term next week when she has a wheelchair [...] her that she may shower at the long-term only using a shower chair with a shower stool. The knee should be in extension before the brace comes off and should remain in extension until the brace goes back on. She should not stand while not wearing the brace. This was all relayed via instructions to the long-term. We will see her back in three weeks. Dictated by KAREEM Croft, for Dr. Mcclure. 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 She is an established patient of [facility]. She was last seen on 04/27/2017, diagnosed [...] patient is followed by Dr. Monaco, a lockstitch collar setter and by Dr. Lili Parks, a neurologist. [...] advance of surgery and 2 weeks postoperatively. 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 [facility] Repor ton [...] use. The patient is seen by a lockstitch collar setter, has a pain specialist, and a neurologist. [...] 2) Orders reviewed and continue same. Normal [facility] C. difficile Assayon 017 C. difficile interpretation Negative Normal [facility] Comment on above: Result Comment: Rapi d test procedural control acceptable. Performed By: #### z CDIF ####Unless otherwise noted, all testing performed by [address] [phone]: [id number] Director: Ramon Araujo M.D. Specimen Acceptable (CDIF)on 07-24-2017 Specimen Acceptable (CDIF) YES Normal [facility] Comment on above: Result Comment: Pily. shelbi ifficile testing result(s) to follow. Performed By: #### C DSPEC ####Unless otherwise noted, all testing performed by [address] [phone]: [id number] Director: Ramon Araujo M.D. CBC with Diffon 07-23-2017 Basophils Auto #/vol (Bld) 0.0 K/mcL Normal 0-0.2 [facility] Comment on above: Performed By: #### C BCDIF, CMET, TSH ####Unless otherwise noted, all testing performed by [address] [phone]: [id number] Director: Ramon Araujo M.D. Basophils/100 WBC Auto (Bld) 0.5 % Normal [facility] Comment on above: Performed By: #### C BCDIF, CMET, TSH ####Unless otherwise noted, all testing performed by [address] [phone]: [id number] Director: Ramon Araujo M.D. Eosinophils 0.1 K/mcL Normal 0-0.5 [facility] Comment on above: Performed By: #### C BCDIF, CMET, TSH ####Unless otherwise noted, all testing performed by [place] [phone]: [id number] Director: Ramon Araujo M.D. Eosinophils/100 leukocytes 1.7 % Normal [facility] Comment on above: Performed By: #### C BCDIF, CMET, TSH ####Unless otherwise noted, all testing performed by [place] [phone]: [id number] Director: Ramon Araujo M.D. Erythrocyte distribution width Auto Ratio (RBC) 14.6 % High 10.0-14.4 [facility] Comment on above: Performed By: #### C BCDIF, CMET, TSH ####Unless otherwise noted, all testing performed by [place] [phone]: [id number] Director: Ramon Araujo M.D. Erythrocytes (RBC) 3.32 M/mcL Low 3.7-5.0 [facility] Comment on above: Performed By: #### C BCDIF, CMET, TSH ####Unless otherwise noted, all testing performed by [place] [phone]: [id number] Director: Ramon Araujo M.D. Hematocrit (HCT) 33.9 % Low 34.4-44.8 [facility] Comment on above: Performed By: #### C BCDIF, CMET, TSH ####Unless otherwise noted, all testing performed by [address] [phone]: [id number] Director: Ramon Araujo M.D. Hemoglobin mass conc (Bld) 11.8 g/dL Normal 11.6-15.4 [facility] Comment on above: Performed By: #### C BCDIF, CMET, TSH ####Unless otherwise noted, all testing performed by [address] [phone]: [id number] Director: Ramon Araujo M.D. Lymphocytes 0.8 K/mcL Low 1.0-3.7 [facility] Comment on above: Performed By: #### C BCDIF, CMET, TSH ####Unless otherwise noted, all testing performed by [address] [phone]: [id number] Director: Ramon Araujo M.D. Lymphocytes/100 leukocytes 18.3 % Normal [facility] Comment on above: Performed By: #### C BCDIF, CMET, TSH ####Unless otherwise noted, all testing performed by [address] [phone]: [id number] Director: Ramon Araujo M.D. MCH 35.6 pg High 27.9-33.9 [facility] Comment on above: Performed By: #### C BCDIF, CMET, TSH ####Unless otherwise noted, all testing performed by [address] [phone]: [id number] Director: Ramon Araujo M.D. [facility] mass conc (RBC) 34.8 g/dL Normal 33.1-35.1 [facility] Comment on above: Performed By: #### C BCDIF, CMET, TSH ####Unless otherwise noted, all testing performed by [phone]: [id number] Director: Ramon Araujo M.D. MCV 102.1 fL High 82.6-98.9 [facility] Comment on above: Performed By: #### C BCDIF, CMET, TSH ####Unless otherwise noted, all testing performed by [place] [phone]: [id number] Director: Ramon Araujo M.D. Monocytes 0.6 K/mcL Normal 0.1-0.6 [facility] Comment on above: Performed By: #### C BCDIF, CMET, TSH ####Unless otherwise noted, all testing performed by [place] [phone]: [id number] Director: Ramon Araujo M.D. Monocytes/100 leukocytes 13.1 % Normal [facility] Comment on above: Performed By: #### C BCDIF, CMET, TSH ####Unless otherwise noted, all testing performed by [place] [phone]: [id number] Director: Ramon Araujo M.D. Neutrophils 3.1 K/mcL Normal 1.2-6.9 [facility] Comment on above: Performed By: #### C BCDIF, CMET, TSH ####Unless otherwise noted, all testing performed by [address] [phone]: [id number] Director: Ramon Araujo M.D. Platelet mean volume (PMV) 7.4 fL Normal 7.0-10.6 [facility] Comment on above: Performed By: #### C BCDIF, CMET, TSH ####Unless otherwise noted, all testing performed by [address] [phone]: [id number] Director: Ramon Araujo M.D. Platelets 229 K/mcL Normal 162-402 [facility] Comment on above: Performed By: #### C BCDIF, CMET, TSH ####Unless otherwise noted, all testing performed by [address] [phone]: [id number] Director: Ramon Araujo M.D. Segmented Neut % 66.4 % Normal [facility] Comment on above: Performed By: #### C BCDIF, CMET, TSH ####Unless otherwise noted, all testing performed by [address] [phone]: [id number] Director: Ramon Araujo M.D. WBC (Leukocytes) 4.6 K/mcL Normal 3.4-10.6 [facility] Comment on above: Performed By: #### C BCDIF, CMET, TSH ####Unless otherwise noted, all testing performed by [place] [phone]: [id number] Director: Ramon Araujo M.D. Comprehensive Metabolic Pane [facility] 07-23-2017 Alanine aminotransferase (ALT) 27 U/L Normal 14-65 [facility] Comment on above: Result Comment: This test result might be falsely depressed or falsely elevated onsamples drawn from patients taking Sulfasalazine and Sulfapyridine.Venipuncture should occur prior to taking either of these drugs. Performed By: #### C BCDIF, CMET, TSH ####Unless otherwise noted, all testing performed by [address] [phone]: [id number] Director: Ramon Araujo M.D. Albumin 2.8 g/dL Low 3.2-5.2 [facility] Comment on above: Performed By: #### C BCDIF, CMET, TSH ####Unless otherwise noted, all testing performed by [address] [phone]: [id number] Director: Ramon Araujo M.D. Alkaline phosphatase (ALP) 53 U/L Normal 40-150 [facility] Comment on above: Performed By: #### C BCDIF, CMET, TSH ####Unless otherwise noted, all testing performed by [address] [phone]: [id number] Director: Ramon Araujo M.D. Aspartate aminotransferase (AST) 32 U/L Normal 0-45 [facility] Comment on above: Result Comment: This test result might be falsely depressed or falsely elevated onsamples drawn from patients taking Sulfasalazine and Sulfapyridine.Venipuncture should occur prior to taking either of these drugs. Performed By: #### C BCDIF, CMET, TSH ####Unless otherwise noted, all testing performed by [address] [phone]: [id number] Director: Ramon Araujo M.D. Bilirubin (total) 0.9 mg/dL Normal 0.3-1.2 [facility] Comment on above: Performed By: #### C BCDIF, CMET, TSH ####Unless otherwise noted, all testing performed by [address] [phone]: [id number] Director: Ramon Araujo M.D. Calcium 8.7 mg/dL Normal 8.4-10.2 [facility] Comment on above: Performed By: #### C BCDIF, CMET, TSH ####Unless otherwise noted, all testing performed by [address] [phone]: [id number] Director: Ramon Araujo M.D. Chloride 108 mmol/L Normal 98-108 [facility] Comment on above: Performed By: #### C BCDIF, CMET, TSH ####Unless otherwise noted, all testing performed by [address] [phone]: [id number] Director: Ramon Araujo M.D. CO2 26 mmol/L Normal 21-32 [facility] Comment on above: Performed By: #### C BCDIF, CMET, TSH ####Unless otherwise noted, all testing performed by [address] [phone]: [id number] Director: Ramon Araujo M.D. Creatinine 0.57 mg/dL Low 0.60-1.20 [facility] Comment on above: Performed By: #### C MARTHA DOUGHERTY, TSH ####Unless otherwise noted, all testing performed by [address] [phone]: [id number] Director: Ramon Araujo M.D. eGFR (black) mL/min/{1.73_m2} Normal [facility] Comment on above: Result Comment: Afri can Luxembourger GFR Calc Performed By: #### C MARTHA DOUGHERTY, TSH ####Unless otherwise noted, all testing performed by [address] [phone]: [id number] Director: Ramon Araujo M.D. eGFR (non-black) mL/min/{1.73_m2} Normal [facility] Comment on above: Result Comment: Non- GFR [...] otherwise noted, all testing performed by [address] [phone]: [id number] Director: Ramon Araujo M.D. Glucose mass conc 86 mg/dL Normal 70-99 [facility] Comment on above: Result Comment: This test result might be falsely depressed or falsely elevated onsamples drawn from patients taking Sulfasalazine and Sulfapyridine.Venipuncture should occur prior to taking either of these drugs. Performed By: #### C FREDF, CMET, TSH ####Unless otherwise noted, all testing performed by [address] [phone]: [id number] Director: Ramon Araujo M.D. Potassium molar conc 3.7 mmol/L Normal 3.5-5.1 [facility] Comment on above: Performed By: #### C BCDIF, CMET, TSH ####Unless otherwise noted, all testing performed by [place] [phone]: [id number] Director: Ramon Araujo M.D. Protein 6.1 g/dL Normal 6.0-8.0 [facility] Comment on above: Performed By: #### C BCDIF, CMET, TSH ####Unless otherwise noted, all testing performed by [place] [phone]: [id number] Director: Ramon Araujo M.D. Sodium 141 mmol/L Normal 135-145 [facility] Comment on above: Performed By: #### C BCDIF, CMET, TSH ####Unless otherwise noted, all testing performed by [address] [phone]: [id number] Director: Ramon Araujo M.D. Urea nitrogen 11 mg/dL Normal 8-25 [facility] Comment on above: Performed By: #### C BCDIF, CMET, TSH ####Unless otherwise noted, all testing performed by [place] [phone]: [id number] Director: Ramon Araujo M.D. TSHon 07-23-2017 Thyroid stimulating hormone (TSH) 1.67 uIU/mL Normal 0.320-5.000 [facility] Comment on above: Performed By: #### C BCDIF, CMET, TSH ####Unless otherwise noted, all testing performed by [place] [address] [address] [place], [place] [phone]: [id number] Director: aRmon Aarujo M.D. DISCH SUMMon 07-21-2017 [facility] NOTES Normal [facility] NURSING NOTEon 07-21-2017 [facility] NOTES Normal [facility] NOT[facility] Normal [facility] NOT[facility] Normal [facility] NOT[facility] Normal [facility] NOT[facility] Normal [facility] NOT[facility] Normal [facility] PLAN OF HEALTHSOURCE [place] 07-21-2017 [facility] HIM CAC NOTES Normal [facility] NOT[facility] Normal [facility] CAC NOTES Normal [facility] NOT[facility] Normal [facility] NOTES Normal [facility] NOTES Normal [facility] PROGRESSon 07-21-2017 [facility] NOTES Normal [facility] NOT[facility] Normal [facility] NOT[facility] Normal [facility] NOT[facility] Normal [facility] NURSING NOTEon 07-20-2017 [facility] NOTES Normal [facility] NOTES Normal [facility] NOT[facility] Normal [facility] NOTES Normal [facility] PLAN OF CAREon 07-20-2017 [facility] HIM CAC NOTES Normal [facility] NOTES Normal [facility] CAC NOTES Normal [facility] NOTES Normal [facility] PROGRESSon 07-20-2017 [facility] NOTES Normal [facility] NOT[facility] Normal [facility] NOTES Normal [facility] NOT[facility] Normal [facility] NOT[facility] Normal [facility] NOT[facility] Normal [facility] NOT[facility] Normal [facility] NOTES Normal [facility] NOT[facility] Normal [facility] Anes Post-opon 2017 [facility] HIM CAC NOTES Normal [facility] CONSULTon 2017 [facility] NOTES Normal [facility] Certificatioon 2017 [facility] HIM CAC NOTES Normal [facility] NURSING NOTEon 2017 [facility] NOTES Normal [facility] NOT[facility] Normal [facility] NOT[facility] Normal [facility] NOT[facility] Normal [facility] NOTES Normal [facility] NOT[facility] Normal [facility] NOT[facility] Normal [facility] Normal [facility] NOT[facility] Normal [facility] NOT[facility] Normal [facility] NOT[facility] Normal [facility] PLAN OF CAREon 2017 [facility] HIM CAC NOTES Normal [facility] NOT[facility] Normal [facility] CAC NOT[facility] Normal [facility] NOT[facility] Normal [facility] PROGRESSon 2017 [facility] NOTES Normal [facility] NOT[facility] Normal [facility] NOT[facility] Normal [facility] NOT[facility] Normal [facility] NOT[facility] Normal [facility] NOT[facility] Normal [facility] NOT[facility] Normal [facility] NOT[facility] Normal [facility] NOT[facility] Normal [facility] BRIEF OP NOTon 07-18-2017 [facility] NOTES Normal [facility] OP NOTEon 07-18-2017 [facility] NOTES Normal [facility] OR NURSINGon 07-18-2017 [facility] NOT[facility] Normal [facility] XR KNEE LEFT 2 VIEWSon 07-18 [...] changes as above in satisfactory alignment. Normal [facility] PROGRESSon 07-01-2017 [facility] NOTES Normal [facility] Vital Signs Date Time Vital Sign Value Performing Clinician Facility 07-23-2025 09:46-0400 Diastolic blood pressure 108 mm[Hg] Yulisa Batres MD Work Phone: [facility] 07-23-2025 09:46-0400 Heart rate 67 /min Yulisa Batres MD Work Phone: [facility] 07-23-2025 09:46-0400 SaO2% (BldA) [Mass fraction] 96 % Yulisa Batres MD Work Phone: [facility] 07-23-2025 09:46-0400 Systolic blood pressure 202 mm[Hg] Yulisa Batres MD Work Phone: [facility] 07-17-2025 10:44-0400 Body weight 99.96 kg Yulisa Batres MD Work Phone: [facility] 07-17-2025 10:44-0400 Diastolic blood pressure 102 mm[Hg] Yulisa Batres MD Work Phone: [facility] 07-17-2025 10:44-0400 Heart rate 69 /min Yulisa Batres MD Work Phone: [facility] 07-17-2025 10:44-0400 SaO2% (BldA) [Mass fraction] 95 % Yulisa Batres MD Work Phone: [facility] 07-17-2025 10:44-0400 Systolic blood pressure 188 mm[Hg] Yulisa Batres MD Work Phone: [facility] 06-20-2025 08:26-0400 Body height 172.7 cm Elie Harper DPM Work Phone: [facility] 06-20-2025 08:26-0400 Body mass index (BMI) [Ratio] 33.75 kg/m2 Elie Harper DPM Work Phone: [facility] 06-20-2025 08:26-0400 Body weight 100.7 kg Elie Harper DPM Work Phone: [facility] 06-20-2025 08:26-0400 Respiratory rate 16 /min Elie Harper DPM Work Phone: [facility] 06-13-2025 10:01-0400 Diastolic blood pressure 98 mm[Hg] Yulisa Batres MD Work Phone: [facility] 06-13-2025 10:01-0400 Heart rate 72 /min Yulisa Batres MD Work Phone: [facility] 06-13-2025 10:01-0400 SaO2% (BldA) [Mass fraction] 97 % Yulisa Batres MD Work Phone: [facility] 06-13-2025 10:01-0400 Systolic blood pressure 178 mm[Hg] Yulisa Batres MD Work Phone: [facility] 05-01-2025 09:43-0400 Body height 172.72 cm Yulisa Batres MD Work Phone: [facility] 05-01-2025 09:43-0400 Body mass index (BMI) [Ratio] 33.7 kg/m2 Yulisa Batres MD Work Phone: [facility] 05-01-2025 09:43-0400 Body weight 100.69 kg Yulisa Batres MD Work Phone: [facility] 05-01-2025 09:43-0400 Diastolic blood pressure 102 mm[Hg] Yulisa Batres MD Work Phone: [facility] 05-01-2025 09:43-0400 Heart rate 66 /min Yulisa Batres MD Work Phone: [facility] 05-01-2025 09:43-0400 Respiratory rate 16 /min Yulisa Batres MD Work Phone: [facility] 05-01-2025 09:43-0400 SaO2% (BldA) [Mass fraction] 97 % Yulisa Batres MD Work Phone: [facility] 05-01-2025 09:43-0400 Systolic blood pressure 200 mm[Hg] Yulisa Batres MD Work Phone: [facility] 04-04-2025 11:59-0400 Body height 172.7 cm Elie Harper DPM Work Phone: [facility] 04-04-2025 11:59-0400 Body mass index (BMI) [Ratio] 33.75 kg/m2 Elie Harper DPM Work Phone: [facility] 04-04-2025 11:59-0400 Body weight 100.7 kg Elie Harper DPM Work Phone: [facility] 04-04-2025 11:59-0400 Respiratory rate 18 /min Elie Harper DPM Work Phone: [facility] 03-07-2025 08:32-0400 Body height 172.7 cm Elie Harper DPM Work Phone: [facility] 03-07-2025 08:32-0400 Body mass index (BMI) [Ratio] 33.75 kg/m2 Elie Harper DPM Work Phone: [facility] 03-07-2025 08:32-0400 Body weight 100.7 kg Elie Harper DPM Work Phone: [facility] 03-07-2025 08:32-0400 Respiratory rate 16 /min Elie Harper DPM Work Phone: [facility] 02-28-2025 09:15-0400 Diastolic blood pressure 98 mm[Hg] Magalie Mandeep DO Work Phone: [facility] 02-28-2025 09:15-0400 Heart rate 71 /min Magalie Mandeep DO Work Phone: [facility] 02-28-2025 09:15-0400 SaO2% (BldA) [Mass fraction] 96 % Magalie Mandeep DO Work Phone: [facility] 02-28-2025 09:15-0400 Systolic blood pressure 164 mm[Hg] Magalie Kaufman DO Work Phone: [facility] 02-20-2025 14:03-0400 Body height 172.7 cm Elie Brown DPM Work Phone: [facility] 02-20-2025 14:03-0400 Body mass index (BMI) [Ratio] 33.75 kg/m2 Elie Brown DPM Work Phone: [facility] 02-20-2025 14:03-0400 Body weight 100.7 kg Elie Brown DPM Work Phone: [facility] 02-20-2025 14:03-0400 Respiratory rate 18 /min Elie Brown DPM Work Phone: [facility] 02-13-2025 15:43-0400 Body height 172.7 cm Elie Brown DPM Work Phone: [facility] 02-13-2025 15:43-0400 Body mass index (BMI) [Ratio] 33.75 kg/m2 Elie Brown DPM Work Phone: [facility] 02-13-2025 15:43-0400 Body weight 100.7 kg Elie Brown DPM Work Phone: [facility] 02-13-2025 15:43-0400 Respiratory rate 18 /min Elie Brown DPM Work Phone: [facility] 02-06-2025 14:21-0400 Body height 172.7 cm Elie Brown DPM Work Phone: [facility] 02-06-2025 14:21-0400 Body mass index (BMI) [Ratio] 33.75 kg/m2 Elie Brown DPM Work Phone: [facility] 02-06-2025 14:21-0400 Body weight 100.7 kg Elie Brown DPM Work Phone: [facility] 02-06-2025 14:21-0400 Respiratory rate 18 /min Elie Brown DPM Work Phone: [facility] 01-17-2025 10:12-0400 Body height 172.7 cm Elie Brown DPM Work Phone: [facility] 01-17-2025 10:12-0400 Body mass index (BMI) [Ratio] 33.75 kg/m2 Elie Brown DPM Work Phone: [facility] 01-17-2025 10:12-0400 Body weight 100.7 kg Elie Brown DPM Work Phone: [facility] 01-17-2025 10:12-0400 Respiratory rate 18 /min Elie Brown DPM Work Phone: [facility] 01-10-2025 10:22-0500 Body height 172.7 cm Elie Brown DPM Work Phone: [facility] 01-10-2025 10:22-0500 Body mass index (BMI) [Ratio] 33.75 kg/m2 Elie Brown DPM Work Phone: [facility] 01-10-2025 10:22-0500 Body weight 100.7 kg Elie Brown DPM Work Phone: [facility] 01-10-2025 10:22-0500 Respiratory rate 18 /min Elie Brown DPM Work Phone: [facility] 01-02-2025 15:04-0500 Body height 172.7 cm Elie Brown DPM Work Phone: [facility] 01-02-2025 15:04-0500 Body mass index (BMI) [Ratio] 33.75 kg/m2 Elie Brown DPM Work Phone: [facility] 01-02-2025 15:04-0500 Body weight 100.7 kg Elie Brown DPM Work Phone: [facility] 01-02-2025 15:04-0500 Respiratory rate 18 /min Elie Brown DPM Work Phone: [facility] 12-12-2024 11:30-0500 Body mass index (BMI) [Ratio] 33.75 kg/m2 Gaby Christianson LINESPERSON Work Phone: [facility] 12-12-2024 11:30-0500 Body weight 100.7 kg Gaby Christianson [employer] Work Phone: [facility] 12-12-2024 11:30-0500 Diastolic blood pressure 84 mm[Hg] Gaby Christianson [employer]ERSON Work Phone: [facility] 12-12-2024 11:30-0500 Heart rate 85 /min Gaby Christianson [employer] Work Phone: [facility] 12-12-2024 11:30-0500 SaO2% (BldA) [Mass fraction] 97 % Gaby Christianson [employer]ERSON Work Phone: [facility] 12-12-2024 11:30-0500 Systolic blood pressure 140 mm[Hg] Gaby Christianson LINESPERSON Work Phone: [facility] 11-28-2024 11:19-0500 Body height 170.2 cm New Mcclure MD Work Phone: [facility] 11-28-2024 11:19-0500 Body mass index (BMI) [Ratio] 36.96 kg/m2 New Mcclure MD Work Phone: [facility] 11-28-2024 11:19-0500 Body weight 107.05 kg New Mcclure MD Work Phone: [facility] 11-15-2024 14:19-0500 Body height 172.7 cm Elie Harper DPM Work Phone: [facility] 11-15-2024 14:19-0500 Body mass index (BMI) [Ratio] 34.67 kg/m2 Elie Harper DPM Work Phone: [facility] 11-15-2024 14:19-0500 Body weight 103.42 kg Elie Harper DPM Work Phone: [facility] 11-15-2024 14:19-0500 Respiratory rate 18 /min Elie Harper DPM Work Phone: [facility] 10-25-2024 11:39-0500 Diastolic blood pressure 88 mm[Hg] Magalie Mandeep DO Work Phone: [facility] 10-25-2024 11:39-0500 Heart rate 76 /min Magalie Mandeep DO Work Phone: [facility] 10-25-2024 11:39-0500 SaO2% (BldA) [Mass fraction] 99 % Magalie Mandeep DO Work Phone: [facility] 10-25-2024 11:39-0500 Systolic blood pressure 136 mm[Hg] Magalie Mandeep DO Work Phone: [facility] 10-15-2024 14:08-0500 Body mass index (BMI) [Ratio] 34.67 kg/m2 Christopher Moni DO Work Phone: [facility] 10-15-2024 14:08-0500 Body weight 103.42 kg Christopher Moni DO Work Phone: [facility] 10-15-2024 14:08-0500 Diastolic blood pressure 82 mm[Hg] Christopher Moni DO Work Phone: [facility] 10-15-2024 14:08-0500 Heart rate 76 /min Christopher Moni DO Work Phone: [facility] 10-15-2024 14:08-0500 SaO2% (BldA) [Mass fraction] 93 % Christopher Moni DO Work Phone: [facility] 10-15-2024 14:08-0500 Systolic blood pressure 148 mm[Hg] Christopher Moni DO Work Phone: [facility] 09-06-2024 14:36-0400 Body height 172.7 cm Elie Harper DPM Work Phone: [facility] 09-06-2024 14:36-0400 Body mass index (BMI) [Ratio] 34.21 kg/m2 Elie Harper DPM Work Phone: [facility] 09-06-2024 14:36-0400 Body weight 102.06 kg Elie Harper DPM Work Phone: [facility] 09-06-2024 14:36-0400 Diastolic blood pressure 80 mm[Hg] Elie Brown DPM Work Phone: [facility] 09-06-2024 14:36-0400 Heart rate 82 /min Elie Harper DPM Work Phone: [facility] 09-06-2024 14:36-0400 Systolic blood pressure 129 mm[Hg] Elie Brown DPM Work Phone: [facility] 08-16-2024 11:30-0400 Body height 172.7 cm Elie Harper DPM Work Phone: [facility] 08-16-2024 11:30-0400 Body mass index (BMI) [Ratio] 34.21 kg/m2 Elie Brown DPM Work Phone: [facility] 08-16-2024 11:30-0400 Body weight 102.06 kg Elie Harper DPM Work Phone: [facility] 08-16-2024 11:30-0400 Respiratory rate 17 /min Elie Harper DPM Work Phone: [facility] 08-02-2024 10:36-0400 Body height 172.7 cm Elie Harper DPM Work Phone: [facility] 08-02-2024 10:36-0400 Body mass index (BMI) [Ratio] 34.21 kg/m2 Elie Brown DPM Work Phone: [facility] 08-02-2024 10:36-0400 Body weight 102.06 kg Elie Brown DPM Work Phone: [facility] 08-02-2024 10:36-0400 Diastolic blood pressure 80 mm[Hg] Elie Harper DPM Work Phone: [facility] 08-02-2024 10:36-0400 Heart rate 74 /min Elie Harper DPM Work Phone: [facility] 08-02-2024 10:36-0400 Respiratory rate 18 /min Elie Meredith DPM Work Phone: [facility] 08-02-2024 10:36-0400 Systolic blood pressure 130 mm[Hg] Elie Harper DPM Work Phone: [facility] 07-26-2024 12:37-0400 Diastolic blood pressure 90 mm[Hg] Magalie Mandeep DO Work Phone: [facility] 07-26-2024 12:37-0400 Heart rate 64 /min Magalie Mandeep DO Work Phone: [facility] 07-26-2024 12:37-0400 SaO2% (BldA) [Mass fraction] 94 % Magalie Mandeep DO Work Phone: [facility] 07-26-2024 12:37-0400 Systolic blood pressure 162 mm[Hg] Magalie Mandeep DO Work Phone: [facility] 07-18-2024 15:22-0400 Body height 172.7 cm Elie Harper DPM Work Phone: [facility] 07-18-2024 15:22-0400 Body mass index (BMI) [Ratio] 34.21 kg/m2 Eliemitzi Harper DPM Work Phone: [facility] 07-18-2024 15:22-0400 Body weight 102.06 kg Elie Brown DPM Work Phone: [facility] 07-18-2024 15:22-0400 Diastolic blood pressure 83 mm[Hg] Elie Harper DPM Work Phone: [facility] 07-18-2024 15:22-0400 Heart rate 75 /min Elie Harper DPM Work Phone: [facility] 07-18-2024 15:22-0400 Respiratory rate 18 /min Elie Harper DPM Work Phone: [facility] 07-18-2024 15:22-0400 Systolic blood pressure 132 mm[Hg] Elie Harper DPM Work Phone: [facility] 07-16-2024 13:00-0400 Body height 172.7 cm Gaby Christianson LINESPERSON Work Phone: [facility] 07-16-2024 13:00-0400 Body mass index (BMI) [Ratio] 34.21 kg/m2 Gaby Christianson LINESPERSON Work Phone: [facility] 07-16-2024 13:00-0400 Body weight 102.06 kg Gaby Chrisitanson LINESPERSON Work Phone: [facility] 07-16-2024 13:00-0400 Diastolic blood pressure 92 mm[Hg] Gaby Fischeroll LINESPERSON Work Phone: [facility] 07-16-2024 13:00-0400 Systolic blood pressure 142 mm[Hg] Gaby Fischeroll LINESPERSON Work Phone: [facility] 06-28-2024 14:04-0400 Body height 172.7 cm Elie Harper DPM Work Phone: [facility] 06-28-2024 14:04-0400 Body mass index (BMI) [Ratio] 33.6 kg/m2 Elie Harper DPM Work Phone: [facility] 06-28-2024 14:04-0400 Body weight 100.25 kg Elie Harper DPM Work Phone: [facility] 06-28-2024 14:04-0400 Diastolic blood pressure 79 mm[Hg] Elie Harper DPM Work Phone: [facility] 06-28-2024 14:04-0400 Heart rate 80 /min Elie Harper DPM Work Phone: [facility] 06-28-2024 14:04-0400 Systolic blood pressure 129 mm[Hg] Elie Harper DPM Work Phone: [facility] 05-31-2024 09:44-0400 Body height 170.2 cm New Mcclure MD Work Phone: [facility] 05-31-2024 09:44-0400 Body mass index (BMI) [Ratio] 37.09 kg/m2 New Mcclure MD Work Phone: [facility] 05-31-2024 09:44-0400 Body temperature 97.5 [degF] New Mcclure MD Work Phone: [facility] 05-31-2024 09:44-0400 Body weight 107.41 kg New Mcclure MD Work Phone: [facility] 03-22-2024 15:49-0400 Body height 170.2 cm New Mcclure MD Work Phone: [facility] 03-22-2024 15:49-0400 Body mass index (BMI) [Ratio] 35.4 kg/m2 New Mcclure MD Work Phone: [facility] 03-22-2024 15:49-0400 Body weight 102.51 kg New Mcclure MD Work Phone: [facility] 02-23-2024 11:02-0400 Body height 170.2 cm Rajinder Green TI[employer] DESIGN ENGINEER[employer] Work Phone: [facility] 02-23-2024 11:02-0400 Body mass index (BMI) [Ratio] 35.4 kg/m2 Rajinder Green [employer] DESIGN ENGINE[employer] Work Phone: [facility] 02-23-2024 11:02-0400 Body weight 102.51 kg Rajinder Green TIRE DESIGN ENGINEER[employer] Work Phone: [facility] 11-03-2023 10:09-0500 Diastolic blood pressure 89 mm[Hg] Pepe Chaka [employer] [facility] 11-03-2023 10:09-0500 Systolic blood pressure 191 mm[Hg] Pepe Chaka [employer] [facility] 11-03-2023 09:53-0500 Body height 170.2 cm Pepe Chaka [employer] [facility] 11-03-2023 09:53-0500 Body mass index (BMI) [Ratio] 34.46 kg/m2 Pepe Chaka [employer] [facility] 11-03-2023 09:53-0500 Body weight 99.79 kg Pepe Chaka [employer] [facility] 11-03-2023 09:53-0500 Heart rate 67 /min Pepe Chaka [employer] [facility] Comment on above: regular 11-03-2023 09:53-0500 Respiratory rate 20 /min Pepe Chaka [employer] [facility] Comment on above: lungs cta 11-03-2023 09:53-0500 SaO2% (BldA) [Mass fraction] 96 % Pepe Chaka [employer] [facility] 09-01-2023 12:59-0400 Body height 170.2 cm New Mcclure MD Work Phone: [facility] 09-01-2023 12:59-0400 Body mass index (BMI) [Ratio] 35.4 kg/m2 New Mcclure MD Work Phone: [facility] 09-01-2023 12:59-0400 Body temperature 98.2 [degF] New Mcclure MD Work Phone: [facility] 09-01-2023 12:59-0400 Body weight 102.51 kg New Mcclure MD Work Phone: [facility] 05-19-2023 14:41-0400 Body height 172.7 cm Rajinder Green APRN-[employer] Work Phone: [facility] 05-19-2023 14:41-0400 Body mass index (BMI) [Ratio] 34.36 kg/m2 Rajinder Green APRN[employer] Work Phone: [facility] 05-19-2023 14:41-0400 Body temperature 97.59 [degF] Rajinder Green APRN[employer] Work Phone: [facility] 05-19-2023 14:41-0400 Body weight 102.51 kg Rajinder Green TIRE DESIGN ENGINEER[employer] Work Phone: [employer] 08-31-2021 15:30-0400 Body height 173.99 cm Stephen Alicea Other [employer] Other 08-31-2021 15:30-0400 Body mass index (BMI) [Ratio] 30.26 kg/m2 Stephen Deanne Other [employer] Other 08-31-2021 15:30-0400 Body weight 91.63 kg Stephen Elsdorian Other [employer] Other 08-31-2021 15:30-0400 Diastolic blood pressure 87 mm[Hg] Stephen Elsdorian Other [employer] Other 08-31-2021 15:30-0400 Systolic blood pressure 145 mm[Hg] Stephen Elsdorian Other [employer] Other 03-11-2021 13:50-0400 Body height 172.7 cm New Mcclure MD Work Phone: [employer] 03-11-2021 13:50-0400 Body mass index (BMI) [Ratio] 33.45 kg/m2 New Mcclure MD Work Phone: [employer] [facility] 03-11-2021 13:50-0400 Body temperature 97 [degF] New Mcclure MD Work Phone: [employer] 03-11-2021 13:50-0400 Body weight 99.79 kg New Mcclure MD Work Phone: [employer] [facility] 11-19-2020 14:21-0500 BMI (Body Mass Index) 34.1 kg/m2 [facility] [employer] [facility] 11-19-2020 14:21-0500 Body Temperature 97.11 [degF] [facility] 11-19-2020 14:21-0500 Body weight 100.[address] [facility] 11-19-2020 14:21-0500 Height 171.[address] [facility] 11-21-2019 13:29-0500 BMI (Body Mass Index) 33.42 kg/m2 [facility] 11-21-2019 13:29-0500 Body Temperature 97 [degF] [facility] 11-21-2019 13:29-0500 Body weight 99.7 kg [facility] 11-21-2019 13:29-0500 Height 172.7 cm [facility] 04-18-2019 16:28-0400 BMI (Body Mass Index) 31.02 kg/m2 [facility] 04-18-2019 16:28-0400 Body Temperature 97.59 [degF] [facility] 04-18-2019 16:28-0400 Height 172.7 cm [facility] 04-18-2019 16:28-0400 Weight 92.53 kg [facility] 03-01-2019 14:14-0400 BMI (Body Mass Index) 31.63 kg/m2 [facility] 03-01-2019 14:14-0400 Body Temperature 97.39 [degF] [facility] 03-01-2019 14:14-0400 Height 172.7 cm [facility] 03-01-2019 14:14-0400 Weight 94.35 kg [facility] 01-03-2019 15:24-0500 BMI (Body Mass Index) 31.63 kg/m2 [facility] 01-03-2019 15:24-0500 Body Temperature 97.3 [degF] [facility] 01-03-2019 15:24-0500 Body weight 94.35 kg [facility] 01-03-2019 15:24-0500 Height 172.7 cm [facility] 12-14-2018 14:44-0500 BMI (Body Mass Index) 30.87 kg/m2 Rajinder Green [facility] Work Phone: 12-14-2018 14:44-0500 Body Temperature 97.9 [degF] Rajinder [facility] Work Phone: 12-14-2018 14:44-0500 Height 172.7 cm [facility] Work Phone: 12-14-2018 14:44-0500 Weight 92.08 kg [facility] Work Phone: 11-24-2018 16:57-0500 Body Temperature 97 [degF] [facility] Work Phone: 11-24-2018 16:57-0500 BP Diastolic 77 mm[Hg] [facility] Work Phone: 11-24-2018 16:57-0500 BP Systolic 155 mm[Hg] [facility] Work Phone: 11-24-2018 16:57-0500 Pulse (Heart Rate) 79 /min [facility] Work Phone: 11-24-2018 16:57-0500 Pulse Oximetry 99 % [facility] Work Phone: 11-24-2018 16:57-0500 Respiratory Rate 18 /min [facility] Work Phone: 11-21-2018 09:00-0500 BMI (Body Mass Index) 32.19 kg/m2 [facility] Work Phone: 11-21-2018 09:00-0500 Height 172.7 cm [facility] Work Phone: 11-21-2018 09:00-0500 Weight 96.03 kg [facility] Work Phone: 10-23-2018 08:49-0500 BP Diastolic 75 mm[Hg] Pepe [employer]aka [employer] [facility] Work Phone: 10-23-2018 08:49-0500 BP Systolic 159 mm[Hg] Pepe [employer]aka [employer] [facility] Work Phone: 10-23-2018 08:49-0500 Pulse (Heart Rate) 100 /min Pepe Chaka [employer] [facility] Work Phone: 10-13-2018 09:01-0500 BMI (Body Mass Index) 31.93 kg/m2 Pepe [employer]aka [employer] [facility] Work Phone: 10-13-2018 09:01-0500 Body Temperature 97.81 [degF] Pepe [employer]aka [employer] [facility] Work Phone: 10-13-2018 09:01-0500 Height 172.7 cm Pepe Chaka [employer] [facility] Work Phone: 10-13-2018 09:01-0500 Pulse Oximetry 99 % Pepe Chaka [employer] [facility] Work Phone: 10-13-2018 09:01-0500 Respiratory Rate 16 /min Pepe Chaka [employer] [facility] Work Phone: 10-13-2018 09:01-0500 Weight 95.25 kg Pepe Chaka [employer] [facility] Work Phone: Encounters Encounter Date Encounter Type Care Provider Facility Start: 07-23-2025 End: 07-23-2025 ambulatory Yulisa Batres MD Work Phone: [facility] Work Phone: Start: 07-23-2025 End: 07-23-2025 Patient encounter procedure Shante Saavedra DO -[facility] [place] Work Phone: Start: 07-17-2025 End: 07-17-2025 ambulatory Yulisa Batres MD Work Phone: [facility] Work Phone: Start: 07-17-2025 End: 07-17-2025 Patient encounter procedure Shante Saavedra DO -[facility] [place] Work Phone: Start: 06-26-2025 End: 06-26-2025 ambulatory Yulisa Batres MD Work Phone: [facility] Work Phone: Start: 06-26-2025 End: 06-26-2025 Patient encounter procedure Shante Saavedra DO -[facility] [place] Work Phone: Start: 06-20-2025 End: 06-20-2025 Bamboo flowsheet Elie Harper DPM Work Phone: [facility] Start: 06-20-2025 End: 06-20-2025 Bamboo flowsheet Elie Harper DPM Work Phone: [facility] Start: 06-20-2025 End: 06-20-2025 Patient encounter procedure Elie Harper DPM Work Phone: [facility] Comment on above: 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 (Primary Dx) Start: 06-20-2025 End: 06-20-2025 ambulatory ELIE HARPER Not Available Start: 06-13-2025 End: 06-13-2025 ambulatory Yulisa Batres MD Work Phone: [facility] Work Phone: Start: 06-13-2025 End: 06-13-2025 Patient encounter procedure Magalie Kaufman DO -[facility] [place] Work Phone: Start: 05-15-2025 End: 05-15-2025 Bamboo flowsheet Ramon Barreto DO Work Phone: [facility] Start: 05-15-2025 End: 05-15-2025 Bamboo flowsheet Ramon Barreto DO Work Phone: [facility] Start: 05-15-2025 End: 05-15-2025 ambulatory RAMON BARRETO Not Available Start: 05-01-2025 End: 05-01-2025 ambulatory Yulisa Batres MD Work Phone: [facility] Work Phone: Start: 05-01-2025 End: 05-01-2025 Patient encounter procedure Gaby Chatman Christianson TIRE DESIGN ENGINEER-QUARRY BOSS-C -[facility] Work Phone: Start: 04-04-2025 End: 04-04-2025 Bamboo flowsheet Elie Harper DPM Work Phone: [facility] Start: 04-04-2025 End: 04-04-2025 Bamboo flowsheet Elie Harper DPM Work Phone: [facility] Start: 04-04-2025 End: 04-04-2025 Patient encounter procedure Elie Harper DPM Work Phone: [facility] Comment on above: 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 (Primary Dx) Start: 04-04-2025 End: 04-04-2025 ambulatory ELIE HARPER Not Available Start: 03-20-2025 End: 03-20-2025 Telephone encounter Kris KRISHNA Comment on above: Med Refill Start: 03-07-2025 End: 03-07-2025 Bamboo flowshero Harper DPM Work Phone: [facility] Start: 03-07-2025 End: 03-07-2025 Bamboo flowsheet Elie Harper DPM Work Phone: [facility] Start: 03-07-2025 End: 03-07-2025 Postop follow up visit related to original px Eliemitzi Harper DPM Work Phone: [facility] Comment on above: Acquired deformity o f left toe (Primary Dx); Other polyneuropathy Start: 03-07-2025 End: 03-07-2025 ambulatory ELIE HARPER Not Available Start: 02-28-2025 End: 02-28-2025 Bamboo flowsheet Magalie Kaufman DO Work Phone: [facility] Start: 02-28-2025 End: 02-28-2025 Bamboo flowsheet Magalie Kaufman DO Work Phone: [facility] Start: 02-28-2025 End: 02-28-2025 Patient encounter procedure Magalie Kaufman DO Work Phone: [facility] Comment on above: Blepharospasm (Prima ry Dx); 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 Start: 02-28-2025 End: 02-28-2025 ambulatory MAGALIE KAUFMAN Not Available Start: 02-20-2025 End: 02-20-2025 Bamboo flowsheet Eliemitzi Harper DPM Work Phone: [facility] Start: 02-20-2025 End: 02-20-2025 Bamboo flowsheet Eliemitzi Harper DPM Work Phone: [facility] Start: 02-20-2025 End: 02-20-2025 Postop follow up visit related to original px Eliemitzi Harper DPM Work Phone: [facility] Comment on above: Acquired deformity o f left toe (Primary Dx); Other polyneuropathy Start: 02-20-2025 End: 02-20-2025 ambulatory ELIE HARPER Not Available Start: 02-19-2025 End: 02-19-2025 Refill Elie KRISHNA Comment on above: Paresthesias; Spinal stenosis of lumbar region, unspecified whether neurogenic claudication present Start: 02-13-2025 End: 02-13-2025 Postop follow up visit related to original px Elie Rashmi Harper DPM Work Phone: [facility] Comment on above: Acquired deformity o f left toe (Primary Dx); Other polyneuropathy Start: 02-13-2025 End: 02-13-2025 ambulatory ELIE Rashmi MEREDITH Not Available Start: 02-13-2025 End: 02-13-2025 Bamboo flowsheet Elie Rashmi Brown DPM Work Phone: [facility] Start: 02-13-2025 End: 02-13-2025 Bamboo flowsheet Elie Rashmi Brown DPM Work Phone: [facility] Start: 02-06-2025 End: 02-06-2025 ambulatory ELIE Rashmi MEREDITH Not Available Start: 02-06-2025 End: 02-06-2025 Bamboo flowsheet Elie Rashmi Brown DPM Work Phone: [facility] Start: 02-06-2025 End: 02-06-2025 Bamboo flowsheet Elie Rashmi Brown DPM Work Phone: [facility] Start: 02-06-2025 End: 02-06-2025 Postop follow up visit related to original px Elie Rashmi Brown DPM Work Phone: [facility] Comment on above: Acquired deformity o f left toe (Primary Dx); Other polyneuropathy Start: 01-24-2025 End: 01-24-2025 ambulatory ELIE Rashmi HARPER Not Available Start: 01-17-2025 End: 01-17-2025 Office outpatient visit 25 minutes Elie Rashmi Meredith DPM Work Phone: [facility] Comment on above: Cellulitis of left f oot (Primary Dx); Acquired deformity of left toe; Foot ulcer, left, with fat layer exposed (CMS/HCC); Other polyneuropathy Start: 01-17-2025 End: 01-17-2025 Refill Elie GOMEZ Comment on above: Paresthesias; Spinal stenosis of lumbar region, unspecified whether neurogenic claudication present Start: 01-10-2025 End: 01-10-2025 Bamboo flowsheet Elie Harper DPM Work Phone: [facility] Start: 01-10-2025 End: 01-10-2025 Bamboo flowsheet Elie Harper DPM Work Phone: [facility] Start: 01-10-2025 End: 01-10-2025 Office outpatient visit 15 minutes Elie Harper DPM Work Phone: [facility] Comment on above: Cellulitis of left f oot (Primary Dx); Acquired deformity of left toe; Foot ulcer, left, with fat layer exposed (CMS/HCC); Other polyneuropathy Start: 01-10-2025 End: 01-10-2025 ambulatory ELIE HARPER Not Available Start: 01-02-2025 End: 01-02-2025 Office outpatient visit 15 minutes Elie Harper DPM Work Phone: [facility] Comment on above: Cellulitis of left f oot (Primary Dx); Acquired deformity of left toe Start: 01-02-2025 End: 01-02-2025 ambulatory ELIE HARPER Not Available Start: 01-02-2025 End: 01-02-2025 Bamboo flowsheet Elie Harper DPM Work Phone: [facility] Start: 01-02-2025 End: 01-02-2025 Bamboo flowsheet Elie Harper DPM Work Phone: [facility] Start: 12-12-2024 End: 12-12-2024 Bamboo flowsheet Gaby Christianson [employer]ERSON Work Phone: [facility] [place] Start: 12-12-2024 End: 12-12-2024 Bamboo flowsheet Gaby Christianson LINESPERSON Work Phone: [facility] [place] Start: 12-12-2024 End: 12-12-2024 Office outpatient visit 15 minutes Gaby Christianson LINESPERSON Work Phone: [facility] Comment on above: Spinal stenosis of l umbar region, unspecified whether neurogenic claudication present (Primary Dx); Degeneration of intervertebral disc of lumbar region with discogenic back pain; Facet arthritis of lumbar region; Blepharospasm; Polyneuropathy; Carpal tunnel syndrome on both sides Start: 12-12-2024 End: 12-12-2024 ambulatory GABY CHRISTIANSON Not Available Start: 11-28-2024 End: 11-28-2024 Office outpatient visit 15 minutes New Mcclure MD Work Phone: [facility] Comment on above: Hx of total knee art hroplasty, left (Primary Dx); Hx of total knee arthroplasty, right Start: 11-28-2024 End: 11-28-2024 Subsequent hospital visit by physician New Mcclure MD Work Phone: [facility] Start: 11-28-2024 ambulatory NEW MCCLURE [facility] Start: 11-15-2024 End: 11-15-2024 Office outpatient visit 15 minutes Elie Harper DPM Work Phone: [facility] Comment on above: Acquired deformity o f left toe (Primary Dx); Pain due to onychomycosis of toenails of both feet Start: 11-15-2024 End: 11-15-2024 ambulatory ELIE HARPER Not Available Start: 11-15-2024 End: 11-15-2024 Bamboo flowsheet Elie Harper DPM Work Phone: [facility] Start: 11-15-2024 End: 11-15-2024 Bamboo flowsheet Elie Harper DPM Work Phone: [facility] Start: 10-25-2024 End: 10-25-2024 Bamboo flowsheet Magalie Kaufman DO [facility] Start: 10-25-2024 End: 10-25-2024 Bamboo flowsheet Magalie Kaufman DO [facility] Start: 10-25-2024 End: 10-25-2024 Patient encounter procedure Magalie Kaufman DO Work Phone: [facility] [address] Comment on above: Blepharospasm (Prima ry Dx); 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 Start: 10-25-2024 End: 10-25-2024 ambulatory MAGALIE KAUFMAN Not Available Start: 10-24-2024 End: 10-24-2024 Refill Sheryl Harley MA [facility] [address] [facility] Comment on above: Spinal stenosis of l umbar region, unspecified whether neurogenic claudication present (Primary Dx); Paresthesias Start: 10-23-2024 End: 10-23-2024 Bamboo flowsheet Christopher Moni DO Work Phone: [facility] Start: 10-23-2024 End: 10-23-2024 Bamboo flowsheet Christopher Moni DO Work Phone: [facility] Start: 10-23-2024 End: 10-23-2024 Patient encounter procedure Christopher Moni DO Work Phone: [facility] Comment on above: Carpal tunnel syndro me on both sides (Primary Dx); Paresthesias Start: 10-23-2024 End: 10-23-2024 ambulatory CHRISTOPHER MONI Not Available Start: 10-22-2024 End: 10-22-2024 Orders Only Christopher Moni DO Work Phone: [facility] [address] Comment on above: Paresthesias; Spinal stenosis of lumbar region, unspecified whether neurogenic claudication present Start: 10-15-2024 End: 10-15-2024 Bamboo flowsheet Christopher Moni DO Work Phone: [facility] [address] Start: 10-15-2024 End: 10-15-2024 Bamboo flowsheet Christopher Moni DO Work Phone: [facility] [address] Start: 10-15-2024 End: 10-15-2024 Office outpatient visit 25 minutes Christopher Moni DO Work Phone: [facility] [address] Comment on above: Paresthesias (Primar y Dx); Blepharospasm; Spinal stenosis of lumbar region, unspecified whether neurogenic claudication present Start: 10-15-2024 End: 10-15-2024 ambulatory SHANTE MONTENEGRO Not Available Start: 09-06-2024 End: 09-06-2024 Patient encounter procedure Elie Harper DPM Work Phone: [facility] Comment on above: 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 (Primary Dx); Acquired deformity of left toe Start: 09-06-2024 End: 09-06-2024 ambulatory ELIE HARPER Not Available Start: 09-06-2024 End: 09-06-2024 Bamboo flowsheet Elie Harper DPM Work Phone: [facility] Start: 09-06-2024 End: 09-06-2024 Bamboo flowsheet Elie Harper DPM Work Phone: [facility] Start: 08-16-2024 End: 08-16-2024 Bamboo flowsheet Elie Caraballo Brown DPM Work Phone: [facility] Start: 08-16-2024 End: 08-16-2024 Bamboo flowsheet Elie Harper DPM Work Phone: [facility] Start: 08-16-2024 End: 08-16-2024 Office outpatient visit 15 minutes Elie Harper DPM Work Phone: [facility] Comment on above: Abscess of toe, righ t (Primary Dx); Acquired deformity of left toe Start: 08-16-2024 End: 08-16-2024 ambulatory ELIE HARPER Not Available Start: 08-02-2024 End: 08-02-2024 Bamboo flowsheet Elie Harper DPM Work Phone: [facility] Start: 08-02-2024 End: 08-02-2024 Bamboo flowsheet Elie Harper DPM Work Phone: [facility] Start: 08-02-2024 End: 08-02-2024 Office outpatient visit 15 minutes Elie Harper DPM Work Phone: [facility] Comment on above: Onychocryptosis (Norma ekta Dx); Toe pain, right; Abscess of toe, right; Acquired deformity of left toe Start: 08-02-2024 End: 08-02-2024 ambulatory ELIE HARPER Not Available Start: 07-31-2024 End: 07-31-2024 ambulatory RAMON BARRETO Not Available Start: 07-30-2024 End: 07-30-2024 Telephone encounter Elie Harper DPM Work Phone: [facility] Comment on above: Rx Start: 07-26-2024 End: 07-26-2024 Bamboo flowsheet Magalie Mandeep DO Work Phone: [facility] [employer] [address] Start: 07-26-2024 End: 07-26-2024 Bamboo flowsheet Magalie Mandeep DO [facility] Start: 07-26-2024 End: 07-26-2024 Patient encounter procedure Magalie Mandeep DO [facility] Comment on above: Blepharospasm (Prima ry Dx); 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 Start: 07-26-2024 End: 07-26-2024 ambulatory MAGALIE MANDEEP Not Available Start: 2024 End: 2024 Refill Elie Estrada MA [facility] Comment on above: Polyneuropathy (Prim ric Dx); Spinal stenosis of lumbar region, unspecified whether neurogenic claudication present; Degenerative disc disease, lumbar Start: 07-18-2024 End: 07-18-2024 Office outpatient visit 15 minutes Elie Harper DPM Work Phone: [facility] Comment on above: Onychocryptosis (Norma ekta Dx); Toe pain, right; Abscess of toe, right Start: 07-18-2024 End: 07-18-2024 ambulatory ELIE HARPER Not Available Start: 07-16-2024 End: 07-16-2024 Bamboo flowsheet Gaby Christianson LINESPERSON Work Phone: [facility] Start: 07-16-2024 End: 07-16-2024 Bamboo flowsheet Gaby Christianson LINESPERSON Work Phone: [facility] Start: 07-16-2024 End: 07-16-2024 Office outpatient visit 15 minutes Gaby Christianson LINESPERSON Work Phone: [facility] Comment on above: Spinal stenosis of l umbar region, unspecified whether neurogenic claudication present (Primary Dx); Degenerative disc disease, lumbar; Facet arthritis of lumbar region; Blepharospasm; Polyneuropathy; Paresthesias Start: 07-16-2024 End: 07-16-2024 ambulatory GABY CHRISTIANSON Not Available Start: 06-28-2024 End: 06-28-2024 Bamboo flowsheet Elie Harper DPM Work Phone: [facility] Start: 06-28-2024 End: 06-28-2024 Bamboo flowsheet Elie Harper DPM Work Phone: [facility] Start: 06-28-2024 End: 06-28-2024 Office outpatient visit 10 minutes Elie Harper DPM Work Phone: [facility] Comment on above: Acquired deformity o f left toe (Primary Dx); Onychomycosis; Toe pain, bilateral Start: 06-28-2024 End: 06-28-2024 ambulatory ELIE HARPER Not Available Start: 05-31-2024 End: 05-31-2024 Office outpatient visit 15 minutes New Mcclure MD Work Phone: [facility] Comment on above: Pain in both knees, unspecified chronicity (Primary Dx) Start: 05-31-2024 End: 05-31-2024 Subsequent hospital visit by physician New Mcclure MD Work Phone: [facility] Start: 05-31-2024 ambulatory [employer] Start: 04-19-2024 End: 04-19-2024 Office outpatient visit 25 minutes New Mcclure MD Work Phone: [facility] Comment on above: Pain in both knees, unspecified chronicity (Primary Dx) Start: 04-19-2024 End: 04-19-2024 Subsequent hospital visit by physician New Mcclure MD Work Phone: [facility] Start: 04-19-2024 [facility] Start: 03-22-2024 End: 03-22-2024 Office outpatient visit 15 minutes New Mcclure MD Work Phone: [facility] Comment on above: Pain in both knees, unspecified chronicity (Primary Dx) Start: 03-22-2024 End: 03-22-2024 Subsequent hospital visit by physician New Mcclure MD Work Phone: [facility] Start: 03-22-2024 [facility] Start: 02-23-2024 End: 02-23-2024 Postop follow up visit related to original px Rajinder SCHWARTZ Work Phone: [facility] Comment on above: Hx of total knee art hroplasty, left (Primary Dx) Start: 02-23-2024 End: 02-23-2024 Subsequent hospital visit by physician Rajinder SCHWARTZ Work Phone: [facility] Start: 02-23-2024 ambulatory [facility] Start: 01-12-2024 End: 01-12-2024 Office outpatient visit 25 minutes New Mcclure MD Work Phone: [facility] Comment on above: Right knee pain, uns pecified chronicity (Primary Dx) Start: 01-12-2024 End: 01-12-2024 Subsequent hospital visit by physician New Mcclure MD Work Phone: [facility] Start: 03-07-2024 ambulatory [employer] Start: 12-22-2023 End: 12-22-2023 Subsequent hospital visit by physician Rajinder Green APRN-MARTY Work Phone: [facility] Start: 12-22-2023 ambulatory YULISA BATRES [facility] Start: 11-03-2023 End: 11-03-2023 Admission to establishment New Mcclure MD Work Phone: [facility] Pre Admission Comment on above: Preop testing (Prima ry Dx); Abnormal finding of blood chemistry, unspecified; Abnormal coagulation profile Start: 11-03-2023 End: 11-03-2023 Patient encounter status New Mcclure MD Work Phone: [facility] Start: 09-01-2023 End: 09-01-2023 Office outpatient visit 40 minutes New Mcclure MD Work Phone: [facility] Comment on above: Hx of total knee art hroplasty, right (Primary Dx); Hx of total knee arthroplasty, left Start: 09-01-2023 End: 09-01-2023 Subsequent hospital visit by physician New Mcclure MD Work Phone: [facility] Start: 05-19-2023 End: 05-19-2023 Postop follow up visit related to original px Rajinder SCHWARTZ Work Phone: [facility] Comment on above: Hx of total knee art hroplasty, right (Primary Dx) Start: 05-19-2023 End: 05-19-2023 Subsequent hospital visit by physician Rajinder SCHWARTZ Work Phone: [facility] Start: 03-18-2023 End: 03-18-2023 Subsequent hospital visit by physician New Mcclure MD Work Phone: [facility] Start: 02-08-2023 End: 02-09-2023 ambulatory [...] 08-31-2021 End: 08-31-2021 ambulatory Stephen Alicea Other [facility] Other Start: 08-31-2021 Office outpatient ne w 30 minutes Stephen Alicea [facility] Start: 05-07-2021 End: 05-08-2021 ambulatory Mary Resendez Facility:[facility] Start: 03-11-2021 End: 03-11-2021 Office outpatient visit 15 minutes New Mcclure MD Work Phone: [facility] Comment on above: Left knee pain, unsp ecified chronicity (Primary Dx); Right knee pain, unspecified chronicity Start: 11-19-2020 End: 11-19-2020 Office outpatient visit 15 minutes New Mcclure Work Phone: [facility] Comment on above: Hx of total knee art hroplasty, left (Primary Dx); Pain in prosthetic joint, initial encounter Start: 11-19-2020 End: 11-19-2020 Subsequent hospital visit by physician New Mcclure Work Phone: [facility] Start: 11-21-2019 End: 11-21-2019 Office outpatient visit 15 minutes New Mcclure Work Phone: [facility] Comment on above: History of total kne e arthroplasty, left (Primary Dx); Arthritis of right knee Start: 11-21-2019 End: 11-21-2019 Subsequent hospital visit by physician New Mcclure Work Phone: [facility] Start: 04-18-2019 End: 04-18-2019 Office outpatient visit 15 minutes [employer] Phone: [facility] Comment on above: Right hip pain (Prim ric Dx); Left knee pain, unspecified chronicity; Right knee pain, unspecified chronicity Start: 04-18-2019 End: 04-18-2019 Patient encounter procedure New Mcclure [employer] Phone: [facility] [employer] Start: 03-01-2019 End: 03-01-2019 Subsequent hospital visit by physician New Mcclure [employer] Phone: [facility] [employer] Start: 03-01-2019 End: 03-01-2019 Letter encounter Provider Aurelio [facility] Start: 03-01-2019 End: 03-01-2019 Office outpatient visit 15 minutes [employer] Phone: [facility] Comment on above: History of total kne e arthroplasty, left (Primary Dx); Right hip pain Start: 03-01-2019 End: 03-01-2019 Patient encounter procedure New Mcclure [employer] Phone: [facility] [employer] Start: 02-23-2019 End: 02-23-2019 Patient encounter procedure Other Other [facility] Start: 02-09-2019 End: 02-09-2019 Telephone encounter Marcie Lantigua [facility] Comment on above: Leg Swelling Start: 01-05-2019 End: 01-05-2019 Patient encounter procedure Other Other [facility] Start: 01-03-2019 End: 01-03-2019 Office outpatient visit 15 minutes [employer] Phone: [facility] Comment on above: History of total kne e arthroplasty, left (Primary Dx) Start: 12-14-2018 End: 12-14-2018 Patient encounter procedure Rajinder Green Work Phone: [facility] Start: 12-14-2018 End: 12-14-2018 Postop follow up visit related to original px Rajinder Mosquedaey Work Phone: [facility] Comment on above: Hx of total knee art hroplasty, left (Primary Dx) Start: 12-06-2018 End: 12-06-2018 Telephone encounter Marcie Lantigua [facility] Comment on above: Skin Problem Start: 11-30-2018 End: 11-30-2018 Patient encounter procedure Other Other NOTES/RESULTS Start: 11-21-2018 End: 11-24-2018 Evaluation and management of inpatient New Mcclure Work Phone: [facility] Med Surg Comment on above: Pain in left knee Start: 10-23-2018 End: 10-23-2018 Patient encounter procedure New Mcclure Work Phone: [facility] Pre Admission Comment on above: Pre-op exam (Primary Dx) Start: 09-15-2018 End: 09-15-2018 Patient encounter procedure Richard Richmondkelton [facility] Start: 08-18-2017 Ambulatory Star Rashmi Elwin Facility:[facility] Start: 07-24-2017 Ambulatory [facility] Facility:[facility] Start: 07-18-2017 End: 07-21-2017 Evaluation and management of inpatient [facility] Start: 07-01-2017 Ambulatory [facility] Procedures Date Procedure Procedure Detail Performing Clinician Start: 05-15-2025 End: 05-15-2025 Visual field xm uni/bi w/interp extended exam Ramon Barreto DO Work Phone: Start: 05-15-2025 End: 05-15-2025 Oph medical xm&eval comprhnsv estab pt 1/> Intermediate stage nonexudative age-related macular degeneration of both eyes Ramon Barreto DO Work Phone: Comment on above: Intermediate stage nonexudative age-rela luz marina macular degeneration of both eyes (Primary Dx); Long-term use of hydroxychloroquine Start: 02-06-2025 Radex foot complete minimum 3 views Elie Harper DPM Work Phone: Start: 10-23-2024 End: 10-23-2024 Needle emg ea extremty w/paraspinl area complete Shante Montenegro DO Work Phone: Start: 07-31-2024 Visual field xm uni/bi w/interp extended exam Ramon Barreto DO Work Phone: Start: 07-31-2024 Computerized ophthalmic imaging retina Ramon Barreto DO Work Phone: Start: 07-31-2024 End: 07-31-2024 Ophth medical xm&eval comprhnsv estab pt 1/> Long-term use of hydroxychloroquine Ramon Barreto DO Work Phone: Comment on above: Long-term use of hydroxychloroquine (Norma ekta Dx); Intermediate stage nonexudative age-related macular degeneration of both eyes; Dry eyes; Left posterior capsular opacification; Blepharitis of upper and lower eyelids of both eyes, unspecified type Start: 11-03-2023 Ecg routine ecg w/least 12 lds w/i&r New Mcclure MD Work Phone: Start: 11-03-2023 Blood typing serologic abo New Mcclure MD Work Phone: Start: 11-03-2023 Complete blood count with white cell differential, automated New Mcclure MD Work Phone: Start: 11-03-2023 Comprehensive metabolic panel New Mcclure MD Work Phone: Start: 11-03-2023 Cul prsmptv pthgnc organism scrn w/colony estimj New Mcclure MD Work Phone: Start: 11-03-2023 Urinalysis, reagent strip without microscopy New Mcclure MD Work Phone: Start: 08-31-2022 Mammography Elie Harper DPM Work Phone: Start: 03-11-2021 Arthrocentesis aspir&/inj major jt/bursa w/o us New Mcclure MD Work Phone: Start: 11-19-2020 Intra-articular injection New Mcclure Work Phone: Start: 11-21-2019 Intra-articular injection New Mcclure Work Phone: Start: 04-18-2019 Intra-articular injection New Mcclure Work Phone: Start: 11-24-2018 End: 11-24-2018 CBC, EDIF, PLATELET Rajinder [employer] Phone: Start: 11-23-2018 End: 11-23-2018 Blood count complete auto&auto difrntl wbc Rajinder [employer] Phone: Start: 11-22-2018 End: 11-22-2018 Blood count complete auto&auto difrntl wbc Rajinder [employer] Phone: Start: 11-21-2018 End: 11-21-2018 X-ray of left knee [email or web address] Phone: Start: 11-21-2018 End: 11-21-2018 Cell count misc body fluids w/differential count [employer] Phone: Start: 11-21-2018 End: 11-21-2018 Cul bact melissa aerobic isol xcpt ur blood/stool [employer] Phone: Start: 11-21-2018 End: 11-21-2018 Culture bacterial any source anaerobic iso&id [employer] Phone: Start: 11-21-2018 End: 11-21-2018 Culture fngi mold/yeast prsmptv oth xcpt blood [employer] Phone: Start: 11-21-2018 End: 11-21-2018 Culture tubercle/oth acid-fast bacilli any isol [employer] Phone: Start: 11-21-2018 End: 11-21-2018 REPEAT ABO/RH (D) TYPING [employer] Phone: Start: 11-21-2018 End: 11-21-2018 Cultyp nuc acid amp prb cult/isolate ea [email or web address] Phone: Start: 10-23-2018 End: 10-23-2018 Standard ECG [employer] Phone: Plan of Treatment Date Care Activity Detail Author Start: 02-19-2026 End: 02-19-2026 Patient encounter procedure 02/19/2026 9:00 AM EDT [facility] [address] [place] [phone] Ramon Barreto DO [address] [place] [address] [facility] Start: 11-27-2025 End: 11-27-2025 Patient encounter procedure 11/27/2025 10:30 AM EST Office Visit [facility] [address] [place] [address] New Mcclure MD [address] [place] [address] [facility] Start: 09-05-2025 End: 09-05-2025 Patient encounter procedure 09/05/2025 8:30 AM EDT [facility] [address] [place] [address] Elie Harper DPM [address] [address] [facility] Start: 07-08-2025 Influenza vaccination Influenza Vacc ine (#1) [facility] Start: 06-20-2025 End: 06-20-2025 Patient encounter procedure 06/20/2025 8:30 AM EDT Procedure Visit [facility] [address] [place] [address] Elie Harper DPM [address] [address] Pain due to onychomycosis of toenails of both feet (Primary Dx) [facility] Comment on above: 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 (Primary Dx) Start: 06-13-2025 End: 06-13-2025 Patient encounter procedure 06/13/2025 9:50 AM EDT Procedure Visit [facility] [address] [place] [id number] Elie Harper, PK 3006 [facility] [address] [place] [address] [facility] Start: 05-15-2025 End: 05-15-2025 Patient encounter procedure 05/15/2025 9:00 AM EDT Office Visit [facility] [address] [place] [address] Ramon Barreto, DO [address] [place] [address] Arrived [facility] Comment on above: Arrived Start: 05-03-2025 End: 05-03-2025 Patient encounter procedure 05/03/2025 10:00 AM EDT Office Visit [facility] [address] [place] [address] Ramon Barreto, DO [address] [place] [address] [facility] Start: 05-01-2025 End: 05-01-2025 Patient encounter procedure 05/01/2025 9:40 AM EDT Office Visit [facility] [address] [place] [address] Gaby Christianson NP [address] [place] [address] [facility] Start: 04-08-2025 End: 04-08-2025 Patient encounter procedure 04/08/2025 9:20 AM EDT Office Visit [facility]ANS[facility] [address] [facility] [address] [place] [address] Gaby Christianson LINESPERSON [address] [place] [address] [facility] Start: 04-04-2025 End: 04-04-2025 Patient encounter procedure [facility] Comment on above: 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 (Primary Dx) Start: 03-14-2025 End: 03-14-2025 Patient encounter procedure 03/14/2025 11:00 AM EDT Procedure Visit [facility] [address] [place] [address] Magalie Kaufman DO [address] [place] [id number] [facility] Start: 03-07-2025 End: 03-07-2025 Patient encounter procedure [facility] Comment on above: Acquired deformity o f left toe (Primary Dx); Other polyneuropathy Start: 02-28-2025 End: 02-28-2025 Patient encounter procedure [facility] Comment on above: Arrived Start: 02-20-2025 End: 02-20-2025 Patient encounter procedure [facility] Comment on above: Acquired deformity o f left toe (Primary Dx); Other polyneuropathy Start: 02-13-2025 End: 02-13-2025 Patient encounter procedure 02/13/2025 3:40 PM EDT Office Visit [facility] [address] [place] [phone] Elie Harper DPM [address] [address] Acquired deformity of left toe (Primary Dx); Other polyneuropathy [facility] Comment on above: Acquired deformity o f left toe (Primary Dx); Other polyneuropathy Start: 01-31-2025 End: 01-31-2025 Patient encounter procedure 01/31/2025 10:30 AM EDT Procedure Visit [facility] [address] [place] [address] Magalie Kaufman DO [address] [place] [address] [facility] Start: 01-24-2025 End: 01-24-2025 Patient encounter procedure 01/24/2025 2:40 PM EDT Procedure Visit [facility] [address] [facility] [address] [place] [address] Elie Harper DPM [address] [address] [facility] Start: 01-24-2025 End: 01-24-2025 Patient encounter procedure [facility] [place] [facility] Start: 01-17-2025 End: 01-17-2025 Patient encounter procedure 01/17/2025 10:00 AM EDT Office Visit [facility] [address] [facility] [address] [place] [address] Elie Harper DPM [address] [address] [facility] Start: 01-10-2025 End: 01-10-2025 Patient encounter procedure 01/10/2025 10:20 AM EST Office Visit [facility] [address] [address] Elie Harper DPM [address] [address] Cellulitis of left foot (Primary Dx); Acquired deformity of left toe [facility] Comment on above: Cellulitis of left f oot (Primary Dx); Acquired deformity of left toe Start: 01-02-2025 End: 01-02-2025 Patient encounter procedure 01/02/2025 3:00 PM EST Office Visit [facility] [address] [place] [address] Elie Harper DPM [address] [address] Arrived [facility] Comment on above: Arrived Start: 12-12-2024 End: 12-12-2024 Patient encounter procedure [facility] [place] [address] [facility] Comment on above: Arrived Start: 12-01-2024 Potassium [Moles/vol ume] in Serum or Plasma POTASSIUM [facility] Start: 11-28-2024 End: 11-28-2024 Patient encounter procedure 11/28/2024 11:10 AM EST Office Visit [facility] [address] [place] [address] New Mcclure MD [address] [place] [address] [facility] Start: 11-15-2024 End: 11-15-2024 Patient encounter procedure [facility] Comment on above: 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 (Primary Dx) Start: 11-03-2024 Potassium [Moles/vol ume] in Serum or Plasma POTASSIUM [facility] Start: 10-25-2024 End: 10-25-2024 Patient encounter procedure [facility] [place] [address] Comment on above: Arrived Start: 10-23-2024 End: 10-23-2024 Patient encounter procedure [facility] Comment on above: Arrived Start: 10-15-2024 End: 10-15-2025 EMG 1 Extremeity [...] Start: 08-16-2024 End: 08-16-2024 Patient encounter procedure [facility] Comment on above: Abscess of toe, righ t (Primary Dx); Acquired deformity of left toe Start: 08-02-2024 End: 08-02-2024 Patient encounter procedure [facility] Comment on above: Onychocryptosis (Norma ekta Dx); Toe pain, right; Abscess of toe, right; Acquired deformity of left toe Start: 08-01-2024 End: 08-01-2024 Patient encounter procedure 08/01/2024 2:00 PM EDT Office Visit [facility] [address] [place] [address] Audrey Gunter PA [address] [place] [address] [facility] Start: 07-31-2024 End: 07-31-2024 Patient encounter procedure 07/31/2024 9:45 AM EDT Office Visit [facility] [address] [place] [address] Ramon Barreto DO [address] [place] [address] [facility] Start: 07-26-2024 End: 07-26-2024 Patient encounter procedure [facility] [place] [address] Comment on above: Arrived Start: 07-16-2024 End: 07-16-2024 Patient encounter procedure [facility] [place] [address] Comment on above: Spinal stenosis of l umbar region, unspecified whether neurogenic claudication present (Primary Dx); Degenerative disc disease, lumbar; Facet arthritis of lumbar region; Blepharospasm; Polyneuropathy; Paresthesias Start: 07-08-2024 Influenza vaccination INFLUENZA VACC INE (#1) [facility] Start: 06-28-2024 End: 06-28-2024 Patient encounter procedure 06/28/2024 2:00 PM EDT Procedure Visit [facility] [address] [facility] [address] [place] [address] Elie Harper, DPM [address] [facility] [address] [place] [address] Acquired deformity of left toe (Primary Dx); Onychomycosis; Toe pain, bilateral [facility] Comment on above: Acquired deformity o f left toe (Primary Dx); Onychomycosis; Toe pain, bilateral Start: 05-31-2024 End: 05-31-2024 Patient encounter procedure 05/31/2024 9:30 AM EDT Office Visit [facility] [address] [place] [address], [place] [address] New Mcclure MD [address] [place] [address] [facility] Start: 04-27-2024 Potassium [Moles/vol ume] in Serum or Plasma POTASSIUM [facility] Start: 04-25-2024 End: 04-25-2024 Patient encounter procedure 04/25/2024 11:40 AM EDT Office Visit [facility] [address] [place] [address], [place] [address] Rajinder Green APRN-MARTY [address] [place] [address] [facility] Start: 04-19-2024 End: 04-19-2024 Patient encounter procedure 04/19/2024 10:00 AM EDT Office Visit [facility] [address] [place] [address], [place] [address] New Mcclure MD [address] [place] [address] [facility] Start: 03-22-2024 End: 03-22-2024 Patient encounter procedure 03/22/2024 3:30 PM EDT Office Visit [facility] [address] [place] [address], [place] [address] New Mcclure MD [address] [place] [address] [facility] Start: 02-23-2024 End: 02-23-2024 Patient encounter procedure 02/23/2024 11:00 AM EDT Office Visit [facility] [address] [place] [address], [place] [address] Rajinder Green, TIRE DESIGN ENGINEER-[employer] [address] [place] [address] [facility] Start: 11-29-2023 End: 11-29-2023 Evaluation and management of inpatient [facility] Comment on above: Failed total left [...] Routine Preop testing Expected: 11/03/2023, Expires: 12/05/2023 [facility] Work Phone: Comment on above: Expected: 11/03/2023 , Expires: 12/05/2023 Start: 09-01-2023 End: 09-01-2023 Patient encounter procedure 09/01/2023 1:00 PM EDT Office Visit [facility] [address] [facility] [place] [address] New Mcclure MD [address] [place] [address] [facility] Start: 08-31-2023 Screening for malign ant neoplasm of breast [facility] Start: 07-08-2023 COVID-19 VACCINE ( season) COVID-19 VACCINE ( season) [facility] Start: 07-08-2023 Influenza vaccination INFLUENZA VACC INE (#1) [facility] Start: 04-14-2023 End: 04-14-2023 ambulatory 04/14/2023 Pre-Operative Nurse Assessment Internal Medicine [facility] Pre Admission Start: 12-24-2022 COVID-19 VACCINE (5 - Pfizer series) COVID-19 VACCINE (5 - Pfizer series) [facility] Start: 07-08-2021 Influenza vaccination INFLUENZ A VACCINE (Season Ended) [facility] Start: 11-19-2020 End: 11-19-2020 Office Visit 11/19/2020 Office Visit OrthopaedicNew Castellano MD [address] [place] [address] [phone] [facility] Start: 11-24-2019 Potassium molar conc POTASSIUM [facility] Work Phone: Start: 11-23-2019 Potassium molar conc POTASSIUM [facility] Work Phone: Start: 11-22-2019 End: 11-22-2019 Office Visit 11/22/2019 Office Visit New Lucas MD [address] [place] [address] [phone] [facility] Start: 10-23-2019 Potassium molar conc POTASSIUM Av [facility] Start: 09-11-2019 Pneumococcal vaccination PNEUM OCOCCAL VACCINE SERIES (2 of 2 - PPSV23 or PCV20) [facility] Start: 09-11-2019 Pneumococcal Vaccine : 65+ Years (2 of 2 - PPSV23 or PCV20) Pneumococcal Vaccine: 65+ Years (2 of 2 - PPSV23 or PCV20) [facility] Start: 07-08-[address] [facility] Start: 04-18-2019 End: 04-18-2019 Office Visit 04/18/2019 Office Visit New Lucas MD [address] [place] [address] [phone] [facility] Start: 03-01-2019 End: 03-01-2019 Office Visit [facility] Comment on above: Arrived History of total kne e arthroplasty, left (Primary Dx) Start: 02-23-2019 End: 03-23-2019 X-ray of left knee XR KNEE LEFT 2 VIEWS Imaging Routine History of total knee arthroplasty, left Expected: 02/23/2019, Expires: 03/23/[address] [facility] Comment on above: Expected: 02/23/2019 , Expires: 03/23/2019 Start: 01-03-2019 End: 01-03-2019 Ambulatory 01/03/2019 Office Visit Orthopaedics New Mcclure MD [address] [place] [id number] [phone] [facility] Start: 12-28-2018 End: 01-25-2019 X-ray of left knee XR KNEE LEFT 2 VIEWS Imaging Routine History of total knee arthroplasty, left Expected: 12/28/2018, Expires: 01/25/[address] [facility] Comment on above: Expected: 12/28/2018 , Expires: 01/25/2019 Start: 12-14-2018 End: 12-14-2018 Ambulatory [facility] Start: 11-21-2018 Ambulatory 11/21/2018 Pro cedure Pass [facility] Start: 11-21-2018 Inpatient Encounter [facility] Periop Comment on above: REVISION ARTHROPLAST Y KNEE - extensor mech reconstruction - left Extensor mechanism m alalignment Start: 10-23-2018 End: 10-23-2018 Ambulatory 10/23/2018 Pre-Operative Nurse Assessment Internal Medicine [facility] Pre Admission Start: 07-21-2018 Finding of potassium level (finding) POTASSIUM [facility] Work Phone: Start: 2018 Pneumococcal vaccination [facility] Start: 07-08-2018 Influenza vaccination INFLUENZA VACC INE (#1) [facility] Work Phone: Start: 2013 RSV VACCINE (1 - 1-d ose 60+ series) RSV VACCINE (1 - 1-dose 60+ series) [facility] Start: 2003 Colonoscopy [facility] Work Phone: Start: 2003 Protein mass conc COLON CANCER SCREENING DISCUSSION [facility] Work Phone: Start: 2003 Zoster vaccine hzv l admian for subcutaneous use ZOSTER (SHINGLES) VACCINE (1 of 2) [facility] Start: 1998 Screening for malign ant neoplasm of colon COLORECTAL CANCER SCREENING DISCUSSION [facility] Start: 1993 Fasting lipid profile LIPID SCREENIN G [facility] Work Phone: Start: 1993 Lipid panel LIPID SCREENING [facility] Start: 1993 Protein mass conc MAMMOGRAM SC REENING DISCUSSION [facility] Work Phone: Start: 1993 Screening for malign ant neoplasm of breast MAMMOGRAM SCREENING DISCUSSION [facility] Start: 1993 Screening mammography MAMMOGRA M SCREENING DISCUSSION [facility] Work Phone: Start: 1974 Screening for malign ant neoplasm of cervix [facility] Start: 1972 Third diphtheria, te tanus and acellular pertussis (DTaP) vaccination TDAP (ADULT) [facility] Start: 1971 Tetanus vaccination TETANUS [facility] Work Phone: Start: 1969 COVID-19 VACCINE (1) COVID-19 VACCIN E (1) [facility] Start: 1953 Hepatitis C screening HEPATITI S C VIRUS SCREENING [facility] Start: 1953 Screening for malign ant neoplasm of colon [facility] Start: 1953 Tetanus vaccination TETANUS [facility] Start: 1953 End: 1953 Hepatitis C antibody, confirmatory test HEPATITIS C VIRUS SCREENING [facility] Work Phone: Start: 1953 End: 1953 Screening for osteoporosis DEXA SCAN DISCUSSION [facility] ACID FAST CULTURE [facility] Work Phone: Comment on above: ONE TIME for 1 Occur rences starting 11/21/2018 ANAEROBE CULTURE [facility] Work Phone: Comment on above: ONE TIME for 1 Occur rences starting 11/21/2018 BACTERIAL CULTURE AN D DIRECT SMEAR, LESION, TISSUE, DEVICE BACTERIAL CULTURE AND DIRECT SMEAR, LESION, TISSUE, DEVICE Routine Extensor mechanism malalignment ONE TIME for 1 Occurrences starting 11/21/2018 [facility] Work Phone: Comment on above: ONE TIME for 1 Occur rences starting 11/21/2018 Basic metabolic 2000 panel - Serum or Plasma BASIC METABOLIC PANEL Routine Pre-op exam Ordered: 10/23/2018 [facility] Work Phone: Comment on above: Ordered: 10/23/2018 BODY FLUID CULTURE A ND DIRECT SMEAR BODY FLUID CULTURE AND DIRECT SMEAR Routine 11/21/2018 11:00 AM EST [facility] Work Phone: CBC, EDIF, PLATELET CBC, EDIF, P LATELET Routine Pre-op exam Ordered: 10/23/2018 [facility] Work Phone: Comment on above: Ordered: 10/23/2018 Electromyography [facility] FUNGUS CULTURE [facility] Work Phone: Comment on above: ONE TIME for 1 Occur rences starting 11/21/2018 Hemoglobin A1c/Hemoglobin.total mass fraction (Bld) HEMOGLOBIN A1C Routine Pre-op exam Ordered: 10/23/2018 [facility] Work Phone: Comment on above: Ordered: 10/23/2018 LARGE JOINT INJECTIO N: R knee LARGE JOINT INJECTION: R knee Procedures Routine Right knee pain, unspecified chronicity 04/18/2019 4:00 PM EDT [employer] MR Lumbar spine WO contrast [facility] PROTIME-INR PROTIME-INR STAT Pre-op exam Ordered: 10/23/2018 [facility] Work Phone: Comment on above: Ordered: 10/23/2018 Radiography for bone length studies XR BONE LENGTH STUDY Imaging Routine Hx of total knee arthroplasty, right 09/01/2023 12:48 PM EDT [employer] Radiography for bone length studies XR BONE LENGTH STUDY Imaging Routine Hx of total knee arthroplasty, left Ordered: 02/21/2024 [employer] [facility] Comment on above: Ordered: 02/21/2024 Radiography of hip XR HIP WITH P NICOLAS RIGHT Imaging Routine Right hip pain 03/01/2019 2:59 PM EDT [employer] SCREEN: MRSA ONLY, N VIVI (ISOLATION SCREEN) SCREEN: MRSA ONLY, NARES (ISOLATION SCREEN) Routine Pre-op exam Ordered: 10/23/2018 [facility] Work Phone: Comment on above: Ordered: 10/23/2018 Standard ECG ECG Routine Pre- op exam 10/23/2018 8:53 AM [facility] Work Phone: TISSUE CULTURE TISSUE CULTURE R outine 11/21/2018 11:00 AM [facility] Work Phone: TYPE AND SCREEN - POSSIBLE TRANSFUSION TYPE AND SCREEN - POSSIBLE TRANSFUSION Routine Pre-op exam Ordered: 10/23/2018 [facility] Work Phone: Comment on above: Ordered: 10/23/2018 TYPE AND SCREEN - POSSIBLE TRANSFUSION TYPE AND SCREEN - POSSIBLE TRANSFUSION Blood Bank Today Preop testing 11/03/2023 9:50 AM [employer] [facility]INALYS[facility], MACRO URINALYSIS, MA MASTER CHEF Routine Pre-op exam Ordered: 10/23/2018 [facility] Work Phone: Comment on above: Ordered: 10/23/2018 X-ray of left knee [facility] Work Phone: End: 03-01-2019 X-ray of left knee XR KNEE LEFT 2 VIEWS Imaging Routine History of total knee arthroplasty, left 1 Occurrences starting 03/01/2019 until 03/01/2019 [employer] Comment on above: 1 Occurrences starti ng 03/01/2019 until 03/01/2019 XR Knee - left 2 Views XR KNEE L EFT 2 VIEWS Imaging Routine Left knee pain, unspecified chronicity 03/18/2023 11:12 AM EDT [employer] XR Knee - left 2 Views XR KNEE L EFT 1-2 VIEWS Imaging Routine Hx of total knee arthroplasty, left 12/22/2023 1:17 PM EST [employer] XR Knee - left 2 Views XR KNEE L EFT 1-2 VIEWS Imaging Routine Hx of total knee arthroplasty, left 02/23/2024 11:01 AM EDT [employer] XR Knee - left 2 Views XR KNEE L EFT 1-2 VIEWS Imaging Routine Pain in both knees, unspecified chronicity 03/22/2024 3:36 PM EDT [employer] Work Phone: XR Knee - left 2 Views XR KNEE L EFT 1-2 VIEWS Imaging Routine Pain in both knees, unspecified chronicity 04/19/2024 10:07 AM EDT [employer] XR Knee - left 2 Views XR KNEE L EFT 1-2 VIEWS Imaging Routine Pain in both knees, unspecified chronicity 05/31/2024 9:37 AM EDT [employer] XR Knee - left 3 Views XR KNEE L EFT 3 VIEWS Imaging Routine Hx of total knee arthroplasty, left 09/01/2023 12:48 PM EDT [employer] Work Phone: XR Knee - left 3 Views XR KNEE L EFT 3 VIEWS Imaging Routine Hx of total knee arthroplasty, left 11/28/2024 11:17 AM [facility] [employer] Work Phone: XR Knee - right 2 Views XR KNEE RIGHT 2 VIEWS Imaging Routine Right knee pain, unspecified chronicity 03/18/2023 11:12 AM EDT [employer] End: 01-12-2024 XR Knee - right 2 Views [employer] Work Phone: Comment on above: 1 Occurrences starti ng 01/12/2024 until 01/12/2024 End: 02-23-2024 XR Knee - right 2 Views [facility] Comment on above: 1 Occurrences starti ng 02/23/2024 until 02/23/2024 XR Knee - right 2 Views XR KNEE RIGHT 1-2 VIEWS Imaging Routine Pain in both knees, unspecified chronicity 03/22/2024 3:36 PM EDT [employer] XR Knee - right 2 Views XR KNEE RIGHT 1-2 VIEWS Imaging Routine Pain in both knees, unspecified chronicity 04/19/2024 10:07 AM [employer] Work Phone: XR Knee - right 2 Views XR KNEE RIGHT 1-2 VIEWS Imaging Routine Pain in both knees, unspecified chronicity 05/31/2024 9:37 AM EDT [employer] [facility] XR Knee - right 2 Views XR KNEE RIGHT 1-2 VIEWS Imaging Routine Hx of total knee arthroplasty, right 11/28/2024 11:17 AM EST [facility] Knee - right 3 Views XR KNEE RIGHT 3 VIEWS Imaging Routine Hx of total knee arthroplasty, right 05/19/2023 2:33 PM EDT [employer] [facility] Work Phone: XR Knee - right 3 Views XR KNEE RIGHT 3 VIEWS Imaging Routine Hx of total knee arthroplasty, right 09/01/2023 12:48 PM EDT [employer] [facility] XR Knee - right 3 Views XR KNEE RIGHT 3 VIEWS Imaging Routine Right knee pain, unspecified chronicity Ordered: 01/09/2024 [facility] Comment on above: Ordered: 01/09/2024 Immunizations Immunization Date Immunization Notes Care Provider [facility] 09-03-2024 influenza virus vaccine, unspecified formulation Ramon Barreto DO Work Phone: [facility] 08-25-2023 influenza virus vaccine, unspecified formulation New Mcclure MD Work Phone: [facility] 08-23-2022 influenza virus vaccine, unspecified formulation Rajinder SCHWARTZ Work Phone: [facility] 09-11-2018 pneumococcal conjugate vaccine, 13 valent Elie Harper DPM Work Phone: [facility] 08-18-2015 influenza virus vaccine, unspecified formulation Richard Macdonald [facility] Work Phone: Payers Date Payer Category Payer Self-pay [id number] 2018 [facility] er 1.2.840.862547.1.13.693.2 .7.9.683504.966283.315 2018 Unknown 1.2.840.551786. 1.13.172.2 .7.3.302948.315 2017 Medicare MEDICARE MEDICAR E A AND B xxxxxxxxxxx 2017-Present [place], [place] xxxxxxxxxxx 1.2.840.845069.1.13.172.2 .7.3.211783.315 2017 Medicare MEDICARE MEDICAR E A AND B [id number] 2017-Present [place], [place] [id number] 1.2.840.546549.1.13.172.2 .7.3.579412.315 2017 Medicare 1.2.840.496139. 1.13.172.2 .7.3.812816.315 2017 Unknown ANTHEM ANTHEM TR ADITIONAL xxxxxxxxxxxx 2017-Present xxxxxxxxxxxx 1.2.840.423742.1.13.172.2 .7.3.639439.315 2017 Unknown ANTHEM ANTHEM TR ADITIONAL [id number] 2017-Present [id number] 1.2.840.929888.1.13.172.2 .7.3.988139.315 2017 Medicare [id number] 2.16.840.1.507027.19 1959 Blue Cross Blue Shield [id number] 2.16.840.1.548954.19 1953 Unknown [id number] 2.16.840.1.699818.3.579.2 .593 1953 Unknown [id number] 2.16.840.1.373807.3.579.2 .593 1953 Unknown [id number] 2.16.840.1.051850.3.579.2 .593 1953 Unknown [id number] 2.16.840.1.828650.3.579.2 .593 1953 Unknown [id number] 2.16.840.1.823818.3.579.2 .593 1953 Unknown [id number] 2.16.840.1.860827.3.579.2 .593 1953 Unknown [id number] 2.16.840.1.763606.3.579.2 .59 1953 Unknown [id number] 2.16.840.1.492274.3.579.2 .593 1953 Unknown [id number] 2.16.840.1.558450.3.579.2 .98 1953 Unknown [id number] 2.16.840.1.919250.3.579.2 .983 1953 Unknown [id number] 2.16.840.1.719690.3.579.2 .98 1953 Unknown [id number] 2.16.840.1.290402.3.579.2 .983 1953 Unknown [id number] 2.16.840.1.232229.3.579.2 .98 1953 Unknown [id number] 2.16.840.1.004842.3.579.2 .983 1953 Unknown [id number] 2.16.840.1.747934.3.579.2 .98 1953 Unknown [id number] 2.16.840.1.979145.3.579.2 .983 1953 Unknown [id number] 2.16.840.1.817150.3.579.2 .98 1953 Unknown [id number] 2.16.840.1.069627.3.579.2 .983 1953 Unknown [id number] 2.16.840.1.459085.3.579.2 .1953 Unknown [id number] 2.16.840.1.540883.3.579.2 .1953 Unknown [id number] 2.16.840.1.987628.3.579.2 .1953 Unknown [id number] 2.16.840.1.639773.3.579.2 .98 1953 Unknown [id number] 2.16.840.1.749695.3.579.2 .1258 1953 Unknown [id number] 2.16.840.1.853348.3.579.2 .1258 1953 Unknown [id number] 2.16.840.1.481646.3.579.2 .1258 1953 Unknown [id number] 2.16.840.1.438634.3.579.2 .1258 1953 Unknown [id number] 2.16.840.1.837552.3.579.2 .1258 1953 Unknown [id number] 2.16.840.1.257969.3.579.2 .1258 1953 Unknown [id number] 2.16.840.1.618323.3.579.2 .1258 1953 Unknown [id number] 2.16.840.1.533979.3.579.2 .1258 1953 Unknown [id number] 2.16.840.1.841554.3.579.2 .1258 1953 Unknown [id number] 2.16.840.1.805057.3.579.2 .1258 1953 Unknown [id number] 2.16.840.1.781051.3.579.2 .1258 1953 Unknown [id number] 2.16.840.1.623836.3.579.2 .1258 1953 Unknown [id number] 2.16.840.1.059708.3.579.2 .1258 1953 Unknown [id number] 2.16.840.1.917999.3.579.2 .1258 1953 Unknown [id number] 2.16.840.1.223976.3.579.2 .1258 1953 Unknown [id number] 2.16.840.1.234301.3.579.2 .1258 1953 Unknown [id number] 2.16.840.1.719631.3.579.2 .1258 1953 Unknown [id number] 2.16.840.1.597092.3.579.2 .1258 1953 Unknown [id number] 2.16.840.1.238023.3.579.2 .1258 1953 Unknown [id number] 2.16.840.1.090767.3.579.2 .1258 1953 Unknown [id number] 2.16.840.1.112798.3.579.2 .1258 1953 Unknown [id number] 2.16.840.1.456816.3.579.2 .1258 1953 Unknown [id number] 2.16.840.1.031606.3.579.2 .1258 1953 Unknown [id number] 2.16.840.1.959113.3.579.2 .1258 1953 Unknown [id number] 2.16.840.1.047799.3.579.2 .1258 1953 Unknown [id number] 2.16.840.1.163716.3.579.2 .1259 Private Health Insurance [id number] Unknown [facility] [id number] Unknown [id number] 2.16.840.1.405230.3.579.2 .531 Social History Date Type Detail Facility Start: 10-23-2018 End: 08-31-2021 Tobacco smoking status NHIS Never smoker [employer] Start: 1955 Sex Assigned At Not on file [facility] Work Phone: Start: 11-21-2019 End: 11-28-2024 Alcohol intake Current non-drinker of alcohol (finding) [employer] Start: 11-19-2020 End: 07-13-2023 Tobacco use and exposure Never used [employer] Start: 05-19-2023 End: 05-15-2025 Sex Assigned At [employer] [facility] Start: 05-19-2023 End: 05-15-2025 History of Social function [employer] Start: 03-30-2023 Gender identity Identifies as female gender (finding) [employer] Start: 04-16-2023 End: 04-26-2023 Exposure to SARS-CoV-2 (event) Not sure [employer] Start: 1955 Sex Assigned At Female [facility] Has the electric, [employer], oil, or water company threatened to shut off services in your home in past 12Mo No [facility] (I/We) worried wheth er (my/our) food would run out before (I/we) got money to buy more. Never true [employer] In the past 12 month s, has lack of transportation kept you from medical appointments or from getting medications? No [employer] Start: 08-16-2024 End: 06-20-2025 Alcoholic beverage intake [facility] Start: 04-24-2024 Alcohol Comment Caffeine: Current some days [facility] Start: 03-30-2023 Sexual orientation Heterosexual (finding) [facility] Sex Female (finding) [facility] Medical Equipment Procedure Code Equipment Code Equipment Origin al Text Equipment Identifier Dates Prolite Mesh 25. 4 Cm X 35.5cm Start: 11-21-2018 Palacos R 1x40 S nacho - [id number] Start: 11-21-2018 Prolite Mesh 25. 4 Cm X 35.5cm Start: 11-21-2018 Palacos R 1x40 S nacho - [id number] Start: 11-21-2018 Prolite Mesh 25. 4 Cm X 35.5cm Start: 11-21-2018 Palacos R 1x40 S nacho - [id number] Start: 11-21-2018 Prolite Mesh 25. 4 Cm X 35.5cm Start: 11-21-2018 Palacos R 1x40 S nacho - [id number] Start: 11-21-2018 Prolite Mesh 25. 4 Cm X 35.5cm Start: 11-21-2018 Prolite Mesh 25. 4 Cm X 35.5cm Start: 11-21-2018 Palacos R 1x40 S nacho - [id number] Start: 11-21-2018 Palacos R 1x40 S nacho - [id number] Start: 11-21-2018 Prolite Mesh 25. 4 Cm X 35.5cm Start: 11-21-2018 Prolite Mesh 25. 4 Cm X 35.5cm Start: 11-21-2018 Palacos R 1x40 S nacho - [id number] Start: 11-21-2018 Palacos R 1x40 S nacho - [id number] Start: 11-21-2018 Prolite Mesh 25. 4 Cm X 35.5cm Start: 11-21-2018 Prolite Mesh 25. 4 Cm X 35.5cm Start: 11-21-2018 Palacos R 1x40 S nacho - [id number] Start: 11-21-2018 Palacos R 1x40 S nacho - [id number] Start: 11-21-2018 Prolite Mesh 25. 4 Cm X 35.5cm Start: 11-21-2018 Prolite Mesh 25. 4 Cm X 35.5cm Start: 11-21-2018 Palacos R 1x40 S nacho - [id number] Start: 11-21-2018 Palacos R 1x40 S nacho - [id number] Start: 11-21-2018 Prolite Mesh 25. 4 Cm X 35.5cm Start: 11-21-2018 Prolite Mesh 25. 4 Cm X 35.5cm Start: 11-21-2018 Palacos R 1x40 S nacho - [id number] Start: 11-21-2018 Palacos R 1x40 S nacho - [id number] Start: 11-21-2018 Prolite Mesh 25. 4 Cm X 35.5cm Start: 11-21-2018 Prolite Mesh 25. 4 Cm X 35.5cm Start: 11-21-2018 Palacos R 1x40 S nacho - [id number] Start: 11-21-2018 Palacos R 1x40 S nacho - [id number] Start: 11-21-2018 Prolite Mesh 25. 4 Cm X 35.5cm Start: 11-21-2018 Prolite Mesh 25. 4 Cm X 35.5cm Start: 11-21-2018 Palacos R 1x40 S nacho - [id number] Start: 11-21-2018 Palacos R 1x40 S nacho - [id number] Start: 11-21-2018 Prolite Mesh 25. 4 Cm X 35.5cm [id number] Start: 11-21-2018 Palacos R 1x40 S nacho - [id number] Start: 11-21-2018 Prolite Mesh 25. 4 Cm X 35.5cm Start: 11-21-2018 Prolite Mesh 25. 4 Cm X 35.5cm Start: 11-21-2018 Palacos R 1x40 S nacho - [id number] Start: 11-21-2018 Palacos R 1x40 S nacho - [id number] Start: 11-21-2018 Prolite Mesh 25. 4 Cm X 35.5cm Start: 11-21-2018 Palacos R 1x40 S nacho - [id number] Start: 11-21-2018 Prolite Mesh 25. 4 Cm X 35.5cm Start: 11-21-2018 Prolite Mesh 25. 4 Cm X 35.5cm Start: 11-21-2018 Palacos R 1x40 S nacho - [id number] Start: 11-21-2018 Palacos R 1x40 S nacho - [id number] Start: 11-21-2018 Attune Tibial In sert Fixed [...] Palacos R+G 1x40 Single With Gentamicin - [id number] Start: 11-29-2023 Palacos R 1 X 40 Us - [id number] Start: 04-26-2023 Attune Knee Syst em Revision Tibial Base Fixed Bearing [id number] Start: 04-26-2023 Attune Femoral Posterior Stabilized [id number] Start: 04-26-2023 Attune Patella Medialized Dome [id number] Start: 04-26-2023 [place]oli Cancell ous Bone Screw [id number] Start: 04-26-2023 Attune Knee Syst em Revision Pressfit Stem [id number] Start: 11-29-2023 Palacos R & G Scott ne Cement High-Viscosity With Gentamicin - [id number] Start: 11-29-2023 Attune Knee Syst em Revision Crs Rotating Platform Insert [id number] Start: 11-29-2023 Clinical Notes 03-11-2021 to 06-20-2025 Elie Harper DPM - 06/20/2025 8:30 AM Marge Barreto DO - 05/15/2025 9:00 AM EDT Note Date & Type Note Facility 06-20-2025 History of Presen t illness Narrative Patient: Danyelle Haskins : 1955 PCP: Yulisa Batres MD SUBJECTIVE This is a 69 y.o. female that presents today with a CC of elongated, thick nails. Pt states nails have been elongated and thick for many years and cause pain with ambulation in shoegear. Pt has tried previous treatment with minimal relief. Pt presents today for nail care and treatment. Patient has had prior left 3rd digit hammertoe surgery in the past Allergies: Allergies Allergen Reactions Gabapentin (Once-Daily) Other [...] Medical History: Past Medical History: Diagnosis Date Anemia Arthritis [...] neurogenic claudication Spondylolisthesis Stress fracture Trigeminal neuralgia Medications: Current Outpatient Medications: acetaminophen (Tylenol 8 Hour) 650 MG ER tablet, Take 1-2 tablets by mouth 2 (two) times a day as needed for mild pain or moderate pain Do not crush, chew, or split., Disp: , Rfl: ascorbic acid (Vitamin C) 500 MG tablet, Take 1,000 mg by mouth in the morning., Disp: , Rfl: biotin 1 MG capsule, Take 2 mg by mouth in the morning., Disp: , Rfl: Calcium Carb-Cholecalciferol (Oyster Shell Calcium w/D) 500-5 MG-MCG tablet, Take by mouth Daily, Disp: , Rfl: carvedilol (Coreg) 25 MG [...] mouth in the morning., Disp: , Rfl: Dwfrigvyoxi-Ekmjldocb-Lln C-Mn (Glucosamine 1500 Complex) capsule, as directed [...] methylPREDNISolone (Medrol Dospak) 4 MG tablets, TAKE DIRECTED (Patient not taking: Reported on 12/24/2024), Disp: , Rfl: Multiple Vitamin (multivitamin) tablet, Take 1 tablet by mouth Daily, Disp: , Rfl: pantoprazole (ProtoNix) 40 MG [...] bedtime. Do not start before March 21, 2025., Disp: 60 capsule, Rfl: 2 tiZANidine (Zanaflex) 4 MG tablet, Take 4 mg by mouth every 6 (six) hours if needed, Disp: , Rfl: traMADol (Ultram) 50 MG [...] Insecurity: No Food Insecurity (11/29/2023) Received from [facility] Hunger Vital Sign Worried About Running Out of Food in the Last Year: Never true Ran Out of Food in the Last Year: Never true Transportation Needs: No Transportation Needs (11/29/2023) Received from [facility] PRAPARE - Transportation Lack of Transportation (Medical): No Lack of Transportation (Non-Medical): No Physical Activity: Not on file Stress: Not on file Social Connections: Not on file Intimate Partner Violence: Not on file Housing Stability: Low Risk (11/29/2023) Received from [facility] Housing Stability Vital Sign Unable to Pay for Housing in the Last Year: No Number of Places Lived in the Last Year: 1 Unstable Housing in the Last Year: No ROS: General: denies fever, chills, fatigue, malaise Gastrointestinal: denies abdominal pain, ulcers, or changes in appetite or bowel habits Musculoskeletal: denies arthritis, denies loss of strength, pain to hip, knees, back Cardiovascular: denies CP, palpitations, irregular rhythms OBJECTIVE LE EXAM: DERM: Elongated thick yellow crumbly nails digits 1 through 10. Positive hair growth b/l feet. VASC: Positive palpable pedal pulses bilaterally NEURO: Gross sensation intact to bilateral feet ORTHO: Positive pain on palpation to toenails of the left 1,2,3,4,5 toes and right 1,2,3,4,5 toes ASSESSMENT 1. Pain due to onychomycosis of toenails of both feet PLAN Discussed proper foot care with patient today. Debride nails in length and thickness digits 1 through 10 Elie Harper DPM documented in this encounter [facility] 05-15-2025 Note Right Eye Reliability was good. Progression has been stable. Foveal threshold was normal. Findings include normal observations. Left Eye Reliability was good. Progression has been stable. Foveal threshold was normal. Findings include normal observations. [facility] 05-15-2025 Note Right Eye Quality was good. Scan locations included subfoveal. Progression has been stable. Findings include normal observations. Left Eye Quality was poor. Scan locations included subfoveal. Progression has been stable. Findings include normal observations. Notes Good scan with normal appearance [facility] 05-15-2025 History of Presen t illness Narrative Images from the original note were not included. Subjective Patient ID: Danyelle Haskins is a 69 y.o. female. Chief Complaint [...] last exam. Gradual worsening Last edited by Ramon Barreto DO on 05/15/2025 10:02 AM. No current [...] 1,000 mcg by mouth in the morning. Cnhhladhusz-Imqttpwth-Sze C-Mn (Glucosamine 1500 Complex) capsule as directed [...] above evaluations. This will be adjusted to [id number] when deemed necessary due to macular risk [...] laser capsulotomy, they are to notify their cyber instructor promptly if they have a significant change [...] scrubs were recommended. documented in this encounter [facility] 05-01-2025 Evaluation note Diagnosis Onset Date Resolution Blepharospasm chronic May 01, 2025 9:33am Carpal tunnel syndrome, bilateral chronic May 01, 2025 9:33am DDD (degenerative disc disease), lumbar chronic May 01, 2025 9:33am Facet arthritis of lumbar region chronic May 01, 2025 9:33am Polyneuropathy chronic May 01, 2025 9:33am Spinal stenosis of lumbar region chronic May 01, 2025 9:33am [facility] Work Phone: 1(411) 828-991906-25-2025 Evaluation note* Diagnosis Onset Date Resolution Status Admit Date Blepharospasm chronic May 01, 2025 9:33am Carpal tunnel syndrome, bilateral chronic May 01, 2025 9:33am DDD (degenerative disc disease), lumbar chronic May 01, 2025 9:33am Facet arthritis of lumbar region chronic May 01, 2025 9:33am Polyneuropathy chronic May 01, 2025 9:33am Spinal stenosis of lumbar region chronic May 01, 2025 9:33am Blepharospasm chronic July 082024 10:38am Carpal tunnel syndrome, bilateral chronic July 17, 2025 10:38am Polyneuropathy chronic July 17, 2025 10:38am Spinal stenosis of lumbar region chronic July 17, 2025 10:38am [facility] Work Phone: 1(201) 652-529206-25-2025 Evaluation note* Diagnosis Onset Date Resolution Status Admit Date Blepharospasm chronic May 01, 2025 9:33am Carpal tunnel syndrome, bilateral chronic May 01, 2025 9:33am DDD (degenerative disc disease), lumbar chronic May 01, 2025 9:33am Facet arthritis of lumbar region chronic May 01, 2025 9:33am Polyneuropathy chronic May 01, 2025 9:33am Spinal stenosis of lumbar region chronic May 01, 2025 9:33am Facet arthropathy, lumbar acute July 17, 2025 10:38am Blepharospasm chronic July 082024 10:38am Carpal tunnel syndrome, bilateral chronic July 17, 2025 10:38am Polyneuropathy chronic July 17, 2025 10:38am Spinal stenosis of lumbar region chronic July 17, 2025 10:38am [facility] Work Phone: 1(806) 396-955805-29-2025 History of Present illness Narrative* Elie Harper, ENOCHM - 04/04/2025 11:50 AM EDT Patient: Danyelle Haskins : 1955 PCP: Yulisa Batres MD SUBJECTIVE This is a 69 y.o. female that presents today with a CC of elongated, thick nails. Pt states nails have been elongated and thick for many years and cause pain with ambulation in shoegear. Pt has tried previous treatment with minimal relief. Pt presents today for nail care and treatment. Patient is 9 weeks status post left 3rd digit hammertoe surgery Allergies: Allergies Allergen Reactions Gabapentin (Once-Daily) Other [...] crush, chew, or split., Disp: , Rfl: ascorbic acid (Vitamin C) 500 MG tablet, Take 1,000 mg by mouth in the morning., Disp: , Rfl: biotin 1 MG capsule, Take 2 mg by mouth in the morning., Disp: , Rfl: Calcium Carb-Cholecalciferol (Oyster Shell Calcium w/D) 500-5 MG-MCG tablet, Take by mouth Daily, Disp: , Rfl: Calcium-Vitamin D-Vitamin K (Calcium + D) 500-1000-40 MG-UNT-MCG chewable tablet, 1 (one) time eachday at the same time. (Patient not taking: Reported on 10/15/2024), Disp: , Rfl: carvedilol (Coreg) 25 MG tablet, Take 25 mg by mouth in the morning and 25 mg in the evening. Take with meals., Disp: , Rfl: diclofenac sodium 1 % gel, External for 19 Days, Disp: , Rfl: doxazosin (Cardura) 4 MG tablet, Take 4 mg by mouth 1 (one) time each day at the same time, Disp: ,Rfl: folic acid (Folvite) 1 MG tablet, Take 1,000 mcg by mouth in the morning., Disp: , Rfl: Dwxnsvnjakx-Xcwsyzynn-Rwj C-Mn (Glucosamine 1500 Complex) capsule, as directed Orally, Disp: , Rfl: hydroxychloroquine (Plaquenil) 200 MG tablet, Take 200 mg by mouth in the morning and 200 mg beforebedtime., Disp: , Rfl: ibandronate (Boniva) 150 MG [...] methylPREDNISolone (Medrol Dospak) 4 MG tablets, TAKE DIRECTED (Patient not taking: Reported on 12/24/2024), Disp: , Rfl: Multiple Vitamin (multivitamin) tablet, Take 1 tablet by mouth Daily, Disp: , Rfl: pantoprazole (ProtoNix) 40 MG EC tablet, Take 40 mg by mouth in the morning. Take before meals., Disp: , Rfl: predniSONE (Deltasone) 5 MG tablet, Take 5 mg by mouth As directed, Disp: , Rfl: pregabalin (Lyrica) 25 MG capsule, Take 1 capsule (25 mg) by mouth in the morning and 1 capsule (25mg) before bedtime. Do not start before March 21, 2025., Disp: 60 capsule, Rfl: 2 tiZANidine (Zanaflex) 4 MG tablet, Take 4 mg by mouth every 6 (six) hours if needed, Disp: , Rfl: traMADol (Ultram) 50 MG tablet, Take 50 mg by mouth 3 (three) times a day as needed for moderate pain or severe pain, Disp: , Rfl: triamterene-hydrochlorothiazide (Maxzide-25) 37.5-25 MG tablet, Take 1 tablet by mouth Daily, Disp:, Rfl: Turmeric 500 MG capsule, as directed [...] Insecurity: No Food Insecurity (11/29/2023) Received from [facility] Hunger Vital Sign Worried About Running Out of Food in the Last Year: Never true Ran Out of Food in the Last Year: Never true Transportation Needs: No Transportation Needs (11/29/2023) Received from [facility] PRAPARE - Transportation Lack of Transportation (Medical): No Lack of Transportation (Non-Medical): No Physical Activity: Not on file Stress: Not on file Social Connections: Not on file Intimate Partner Violence: Not on file Housing Stability: Low Risk (11/29/2023) Received from [facility] Housing Stability Vital Sign Unable to Pay for Housing in the Last Year: No Number of Places Lived in the Last Year: 1 Unstable Housing in the Last Year: No ROS: General: denies fever, chills, fatigue, malaise Gastrointestinal: denies abdominal pain, ulcers, or changes in appetite or bowel habits Musculoskeletal: denies arthritis, denies loss of strength, pain to hip, knees, back Cardiovascular: denies CP, palpitations, irregular rhythms OBJECTIVE LE EXAM: DERM: Elongated thick yellow crumbly nails digits 1 through 10. Positive hair growth b/l feet. VASC: Positive palpable pedal pulses bilaterally NEURO: Gross sensation intact to bilateral feet ORTHO: Positive pain on palpation to toenails of the left 1,2,3,4,5 toes and right 1,2,3,4,5 toes ASSESSMENT 1. Pain due to onychomycosis of toenails of both feet PLAN Discussed proper foot care with patient today. Debride nails in length and thickness digits 1 through 10 Elie Harper DPM [id number] Telephone encounter Note* Telephone Encounter - Gaby Christianson NP - 03/20/2025 3:00 PM EDT OARRS reviewed. Due now. [facility]. [id number] Miscellaneous Notes* Telephone Encounter - Gaby Christianson NP - 03/20/2025 3:00 PM EDT OARRS reviewed. Due now. Prescription sent. * Telephone Encounter - REGINALD Snider - 03/20/2025 2:24 PM EDT Patient left message requesting refill of pregabalin 25mg sent to [facility] in [place]. (.Continue Lyrica 25 mg by mouth twice a day ... Per Gaby Christianson NP on 12/12/24) documented in this [facility]05-14-2025 Telephone encounter Note* Telephone Encounter - REGINALD Snider - 03/20/2025 2:24 PM EDT Patient left message requesting refill of pregabalin 25mg sent to [facility] in [place]. (.Continue Lyrica 25 mg by mouth twice a day ... Per Gaby Christianson LINESPERSON on 12/12/24) [facility] [id number] History of Present illness Narrative* Elie Harper DPM - 03/07/2025 8:30 AM EDT Patient: Danyelle Haskins : 1955 PCP: Yulisa Batres MD SUBJECTIVE This is a 69 y.o. female that presents today 5 wks s/p left 3rd digit pipj arthrodesis with kwire Pt denies n/f/v/c and has minimal pain to post op site. Pt states that they have been in normal shoe gear. Pt presents today for follow up. Allergies: Allergies Allergen Reactions Gabapentin (Once-Daily) Other [...] crush, chew, or split., Disp: , Rfl: ascorbic acid (Vitamin C) 500 MG tablet, Take 1,000 mg by mouth in the morning., Disp: , Rfl: biotin 1 MG capsule, Take 2 mg by mouth in the morning., Disp: , Rfl: Calcium Carb-Cholecalciferol (Oyster Shell Calcium w/D) 500-5 MG-MCG tablet, Take by mouth Daily, Disp: , Rfl: Calcium-Vitamin D-Vitamin K (Calcium + D) 500-1000-40 MG-UNT-MCG chewable tablet, 1 (one) time eachday at the same time. (Patient not taking: Reported on 10/15/2024), Disp: , Rfl: carvedilol (Coreg) 25 MG tablet, Take 25 mg by mouth in the morning and 25 mg in the evening. Take with meals., Disp: , Rfl: diclofenac sodium 1 % gel, External for 19 Days, Disp: , Rfl: doxazosin (Cardura) 4 MG tablet, Take 4 mg by mouth 1 (one) time each day at the same time, Disp: ,Rfl: folic acid (Folvite) 1 MG tablet, Take 1,000 mcg by mouth in the morning., Disp: , Rfl: Yyarlndwbtl-Shvwtiflk-Qzb C-Mn (Glucosamine 1500 Complex) capsule, as directed Orally, Disp: , Rfl: hydroxychloroquine (Plaquenil) 200 MG tablet, Take 200 mg by mouth in the morning and 200 mg beforebedtime., Disp: , Rfl: ibandronate (Boniva) 150 MG [...] methylPREDNISolone (Medrol Dospak) 4 MG tablets, TAKE DIRECTED (Patient not taking: Reported on 12/24/2024), Disp: , Rfl: Multiple Vitamin (multivitamin) tablet, Take 1 tablet by mouth Daily, Disp: , Rfl: pantoprazole (ProtoNix) 40 MG EC tablet, Take 40 mg by mouth in the morning. Take before meals., Disp: , Rfl: predniSONE (Deltasone) 5 MG tablet, Take 5 mg by mouth As directed, Disp: , Rfl: pregabalin (Lyrica) 25 MG capsule, Take 1 capsule (25 mg) by mouth in the morning and 1 capsule (25mg) before bedtime., Disp: 60 capsule, Rfl: 0 tiZANidine (Zanaflex) 4 MG tablet, Take 4 mg by mouth every 6 (six) hours if needed, Disp: , Rfl: traMADol (Ultram) 50 MG tablet, Take 50 mg by mouth 3 (three) times a day as needed for moderate pain or severe pain, Disp: , Rfl: triamterene-hydrochlorothiazide (Maxzide-25) 37.5-25 MG tablet, Take 1 tablet by mouth Daily, Disp:, Rfl: Turmeric 500 MG capsule, as directed Orally, Disp: , Rfl: No current facility-administered medications for this visit. ROS: General: denies fever, chills, fatigue, malaise OBJECTIVE LE EXAM: Derm: Skin intact to left foot with negative erythema, negative drainage, minimal edema with negative clinical signs of infection. Vascular: Palpable pedal pulses to left foot Neuro: Gross sensation diminished to left foot. Musculoskeletal: Negative pain on palpation toleft calf. Ortho: Ankle range of motion less than 10 degrees of dorsiflexion at left ankle joint. Rectus left 3rd toe ASSESSMENT 5 wks s/p left 3rd hammer toe repair with kwire 1. Acquired deformity of left toe 2. Other polyneuropathy PLAN Pt to take nsaids as needed PRN pain Continue with normal shoe gear Elie Harper DPM documented [id number] History of Present illness Narrative* Magalie Kaufman DO - 02/28/2025 9:15 AM EDT Procedure - Therapeutic injection, Botulinum Toxin-Blepharospasm Indication 69-year-old female with significant right blepharospasm and hemifacial spasm. The Botox is working well for her with good response. She is overdue on her injections so she is having more of a flare. She does have a physiologic right facial droop and can get more pronounced with the Botox injections. She does feel the Botox wear off just prior to the next set of injections and needs repeat injections 4 continue control. Consent The procedure was explained to the patient. Informed consent for the procedure was obtained and risk associated with Botox treatments. Any further questions were answered during this visit. Site Prep The areas to be injected were sterilized with 70% isopropanol. Lot # [id number] Expiration: 01/2026 Dilution Per 100 units diluted with 1mL of 0.9% Sodium Chloride Procedure Right superior Lateral orbicularis oculi 7.5 units Right lateral orbicularis oculi 7.5 units Right inferior lateral orbicularis oculi 7.5 units Right inferior orbicularis oculi medial 2.5 units Right superior medial orbicularis oculi 2.5 units Right merchandise flow team member 2.5 units Right masseter 5+10+5 units Right zygomaticus 5 + 5 +5 units Right temporalis 5 units Right jawline 5 +5 units TOTAL UNITS INJECTED 80 units WASTED 0 units (shared vial this time) The patient tolerated the procedure well without complications. Disposition The patient tolerated the procedure well. Post-op care was discussed. The patient is aware that duration of action is 3 months, and that delay in reinjection often results in recurrence of symptoms. Patient Care Instructions Do not rub massage or touch injection sites for 24 hours. Discussed signs and symptoms of anaphylaxis and when to seek emergent treatment. Procedure Codes 99354 Chemodenervation of facial muscle J0585 Botulinum toxin a per unit, Units: Follow Up 3 months Botox documented in this encounterBarnes-Jewish West County [id number] History of Present illness Narrative* Elie Harper DPM - 02/20/2025 2:00 PM EDT Patient: Danyelle Haskins : 1955 PCP: Yulisa Batres MD SUBJECTIVE This is a 69 y.o. female that presents today 21 days s/p left 3rd digit pipj arthrodesis with kwire Pt denies n/f/v/c and has minimal pain to post op site. Pt states that they have been keeping dressing dry and intact and have been pwb to post op foot Pt presents today for follow up. Allergies: Allergies Allergen Reactions Gabapentin (Once-Daily) Other [...] Fibromyalgia Hemifacial spasm History of transfusion Hypertension ([facility]/HCC) Muscle spasm Osteopenia Peripheral neuropathy Polyneuropathy PVD (peripheral vascular disease) ([facility]) Radiculopathy, lumbosacral region Small fiber neuropathy Spinal stenosis excluding cervical region lumbar region, without neurogenic claudication Spondylolisthesis Trigeminal neuralgia ([facility]) Medications: Current Outpatient Medications: acetaminophen (Tylenol 8 Hour) 650 MG ER tablet, Take 1-2 tablets by mouth 2 (two) times a day as needed for mild pain or moderate pain Do not crush, chew, or split., Disp: , Rfl: ascorbic acid (Vitamin C) 500 MG tablet, Take 1,000 mg by mouth in the morning., Disp: , Rfl: biotin 1 MG capsule, Take 2 mg by mouth in the morning., Disp: , Rfl: Calcium Carb-Cholecalciferol (Oyster Shell Calcium w/D) 500-5 MG-MCG tablet, Take by mouth Daily, Disp: , Rfl: Calcium-Vitamin D-Vitamin K (Calcium + D) 500-1000-40 MG-UNT-MCG chewable tablet, 1 (one) time eachday at the same time. (Patient not taking: Reported on 10/15/2024), Disp: , Rfl: carvedilol (Coreg) 25 MG tablet, Take 25 mg by mouth in the morning and 25 mg in the evening. Take with meals., Disp: , Rfl: diclofenac sodium 1 % gel, External for 19 Days, Disp: , Rfl: doxazosin (Cardura) 4 MG tablet, Take 4 mg by mouth 1 (one) time each day at the same time, Disp: ,Rfl: folic acid (Folvite) 1 MG tablet, Take 1,000 mcg by mouth in the morning., Disp: , Rfl: Jmkdtybnhgs-Uqlsxrdwl-Umc C-Mn (Glucosamine 1500 Complex) capsule, as directed Orally, Disp: , Rfl: hydroxychloroquine (Plaquenil) 200 MG tablet, Take 200 mg by mouth in the morning and 200 mg beforebedtime., Disp: , Rfl: ibandronate (Boniva) 150 MG [...] methylPREDNISolone (Medrol Dospak) 4 MG tablets, TAKE DIRECTED (Patient not taking: Reported on 12/24/2024), Disp: , Rfl: Multiple Vitamin (multivitamin) tablet, Take 1 tablet by mouth Daily, Disp: , Rfl: pantoprazole (ProtoNix) 40 MG EC tablet, Take 40 mg by mouth in the morning. Take before meals., Disp: , Rfl: predniSONE (Deltasone) 5 MG tablet, Take 5 mg by mouth As directed, Disp: , Rfl: pregabalin (Lyrica) 25 MG capsule, Take 1 capsule (25 mg) by mouth in the morning and 1 capsule (25mg) before bedtime., Disp: 60 capsule, Rfl: 0 tiZANidine (Zanaflex) 4 MG tablet, Take 4 mg by mouth every 6 (six) hours if needed, Disp: , Rfl: traMADol (Ultram) 50 MG tablet, Take 50 mg by mouth 3 (three) times a day as needed for moderate pain or severe pain, Disp: , Rfl: triamterene-hydrochlorothiazide (Maxzide-25) 37.5-25 MG tablet, Take 1 tablet by mouth Daily, Disp:, Rfl: Turmeric 500 MG capsule, as directed Orally, Disp: , Rfl: ROS: General: denies fever, chills, fatigue, malaise OBJECTIVE LE EXAM: Derm: Skin intact to left foot with negative erythema, negative drainage, minimal edema with negative clinical signs of infection. Kwire intact to left 3rd toe Vascular: Palpable pedal pulses to left foot Neuro: Gross sensation diminished to left foot. Musculoskeletal: Negative pain on palpation toleft calf. Ortho: Ankle range of motion less than 10 degrees of dorsiflexion at left ankle joint. Rectus left 3rd toe ASSESSMENT 21 days s/p left 3rd hammer toe repair with kwire 1. Acquired deformity of left toe 2. Other polyneuropathy PLAN Removal of K-wire today under sterile conditions Patient returned to normal shoe gear May get foot wet in the next 24 hours Elie Harper DPM documented in this encounterBarnes-Jewish West County [id number] Telephone encounter Note* Telephone Encounter - Elie Estrada MA - 02/19/2025 12:47 PM EDT Strange the med got removed. The Lyrica is needing refill. Added. [facility] [id number] Miscellaneous Notes* Telephone Encounter - Elie Estrada MA - 02/19/2025 12:47 PM EDT Strange the med got removed. The Lyrica is needing refill. Added. * Telephone Encounter - Deidre Holcomb MA - 02/19/2025 12:20 PM EDT For what medication? * Telephone Encounter - Elie Estrada MA - 02/19/2025 10:26 AM EDT OARRS Reviewed due today documented in this encounterBarnes-Jewish West County [id number] Telephone encounter Note* Telephone Encounter - Deidre Holcomb MA - 02/19/2025 12:20 PM EDT For what medication? [facility] [id number] Telephone encounter Note* Telephone Encounter - Elie Estrada MA - 02/19/2025 10:26 AM EDT OARRS Reviewed due today [facility] [id number] History of Present illness Narrative* Elie Harper DPM - 02/13/2025 3:40 PM EDT Patient: Danyelle Haskins : 1955 PCP: Yulisa Batres MD SUBJECTIVE This is a 69 y.o. female that presents today 14 days s/p left 3rd digit pipj arthrodesis with kwire Pt denies n/f/v/c and has minimal pain to post op site. Pt states that they have been keeping dressing dry and intact and have been pwb to post op foot Pt presents today for follow up. Allergies: Allergies Allergen Reactions Gabapentin (Once-Daily) Other [...] Peripheral neuropathy Polyneuropathy PVD (peripheral vascular disease) ([facility]/HCC) Radiculopathy, lumbosacral region Small fiber neuropathy Spinal stenosis excluding cervical region lumbar region, without neurogenic claudication Spondylolisthesis Trigeminal neuralgia ([facility]/HCC) Medications: Current Outpatient Medications: acetaminophen (Tylenol 8 Hour) 650 MG ER tablet, Take 1-2 tablets by mouth 2 (two) times a day as needed for mild pain or moderate pain Do not crush, chew, or split., Disp: , Rfl: ascorbic acid (Vitamin C) 500 MG tablet, Take 1,000 mg by mouth in the morning., Disp: , Rfl: biotin 1 MG capsule, Take 2 mg by mouth in the morning., Disp: , Rfl: Calcium Carb-Cholecalciferol (Oyster Shell Calcium w/D) 500-5 MG-MCG tablet, Take by mouth Daily, Disp: , Rfl: Calcium-Vitamin D-Vitamin K (Calcium + D) 500-1000-40 MG-UNT-MCG chewable tablet, 1 (one) time eachday at the same time. (Patient not taking: Reported on 10/15/2024), Disp: , Rfl: carvedilol (Coreg) 25 MG tablet, Take 25 mg by mouth in the morning and 25 mg in the evening. Take with meals., Disp: , Rfl: diclofenac sodium 1 % gel, External for 19 Days, Disp: , Rfl: doxazosin (Cardura) 4 MG tablet, Take 4 mg by mouth 1 (one) time each day at the same time, Disp: ,Rfl: folic acid (Folvite) 1 MG tablet, Take 1,000 mcg by mouth in the morning., Disp: , Rfl: Hwgtjemuegf-Zpuylldnq-Byu C-Mn (Glucosamine 1500 Complex) capsule, as directed Orally, Disp: , Rfl: hydroxychloroquine (Plaquenil) 200 MG tablet, Take 200 mg by mouth in the morning and 200 mg beforebedtime., Disp: , Rfl: ibandronate (Boniva) 150 MG [...] methylPREDNISolone (Medrol Dospak) 4 MG tablets, TAKE DIRECTED (Patient not taking: Reported on 12/24/2024), Disp: , Rfl: Multiple Vitamin (multivitamin) tablet, Take 1 tablet by mouth Daily, Disp: , Rfl: pantoprazole (ProtoNix) 40 MG EC tablet, Take 40 mg by mouth in the morning. Take before meals., Disp: , Rfl: predniSONE (Deltasone) 5 MG tablet, Take 5 mg by mouth As directed, Disp: , Rfl: pregabalin (Lyrica) 25 MG capsule, Take 1 capsule (25 mg) by mouth in the morning and 1 capsule (25mg) before bedtime., Disp: 60 capsule, Rfl: 0 tiZANidine (Zanaflex) 4 MG tablet, Take 4 mg by mouth every 6 (six) hours if needed, Disp: , Rfl: traMADol (Ultram) 50 MG tablet, Take 50 mg by mouth 3 (three) times a day as needed for moderate pain or severe pain, Disp: , Rfl: triamterene-hydrochlorothiazide (Maxzide-25) 37.5-25 MG tablet, Take 1 tablet by mouth Daily, Disp:, Rfl: Turmeric 500 MG capsule, as directed Orally, Disp: , Rfl: ROS: General: denies fever, chills, fatigue, malaise OBJECTIVE LE EXAM: Derm: Sutures intact to left foot with negative erythema, negative drainage, minimal edema with negative clinical signs of infection. Kwire intact to left 3rd toe Vascular: Palpable pedal pulses to left foot Neuro: Gross sensation diminished to left foot. Musculoskeletal: Negative pain on palpation toleft calf. Ortho: Ankle range of motion less than 10 degrees of dorsiflexion at left ankle joint. Rectus left 3rd toe ASSESSMENT 14 days s/p left 3rd hammer toe repair with kwire 1. Acquired deformity of left toe 2. Other polyneuropathy PLAN Removal of sutures today Patient to keep dry sterile dressing intact and keep dressing dry with partial weightbearing with walking boot Patient may take anti-inflammatories as needed for pain. May continue with ice to foot as needed p.r.n. Elie Harper DPM documented in this encounterBarnes-Jewish West County [id number] History of Present illness Narrative* Elie Harper, PK - 02/06/2025 2:00 PM EDT Patient: Danyelle Haskins : 1955 PCP: Yulisa Batres MD SUBJECTIVE This is a 69 y.o. female that presents today 7 days s/p left 3rd digit pipj arthrodesis with kwire Pt denies n/f/v/c and has minimal pain to post op site. Pt states that they have been keeping dressing dry and intact and have been pwb to post op foot Pt presents today for follow up. Allergies: Allergies Allergen Reactions Gabapentin (Once-Daily) Other [...] Fibromyalgia Hemifacial spasm History of transfusion Hypertension ([facility]/HCC) Muscle spasm Osteopenia Peripheral neuropathy Polyneuropathy PVD (peripheral vascular disease) ([facility]) Radiculopathy, lumbosacral region Small fiber neuropathy Spinal stenosis excluding cervical region lumbar region, without neurogenic claudication Spondylolisthesis Trigeminal neuralgia ([facility]/HCC) Medications: Current Outpatient Medications: acetaminophen (Tylenol 8 Hour) 650 MG ER tablet, Take 1-2 tablets by mouth 2 (two) times a day as needed for mild pain or moderate pain Do not crush, chew, or split., Disp: , Rfl: ascorbic acid (Vitamin C) 500 MG tablet, Take 1,000 mg by mouth in the morning., Disp: , Rfl: biotin 1 MG capsule, Take 2 mg by mouth in the morning., Disp: , Rfl: Calcium Carb-Cholecalciferol (Oyster Shell Calcium w/D) 500-5 MG-MCG tablet, Take by mouth Daily, Disp: , Rfl: Calcium-Vitamin D-Vitamin K (Calcium + D) 500-1000-40 MG-UNT-MCG chewable tablet, 1 (one) time eachday at the same time. (Patient not taking: Reported on 10/15/2024), Disp: , Rfl: carvedilol (Coreg) 25 MG tablet, Take 25 mg by mouth in the morning and 25 mg in the evening. Take with meals., Disp: , Rfl: diclofenac sodium 1 % gel, External for 19 Days, Disp: , Rfl: doxazosin (Cardura) 4 MG tablet, Take 4 mg by mouth 1 (one) time each day at the same time, Disp: ,Rfl: folic acid (Folvite) 1 MG tablet, Take 1,000 mcg by mouth in the morning., Disp: , Rfl: Hiwmcprfalw-Glpjntkxh-Hvb C-Mn (Glucosamine 1500 Complex) capsule, as directed Orally, Disp: , Rfl: hydroxychloroquine (Plaquenil) 200 MG tablet, Take 200 mg by mouth in the morning and 200 mg beforebedtime., Disp: , Rfl: ibandronate (Boniva) 150 MG [...] methylPREDNISolone (Medrol Dospak) 4 MG tablets, TAKE DIRECTED (Patient not taking: Reported on 12/24/2024), Disp: , Rfl: Multiple Vitamin (multivitamin) tablet, Take 1 tablet by mouth Daily, Disp: , Rfl: pantoprazole (ProtoNix) 40 MG EC tablet, Take 40 mg by mouth in the morning. Take before meals., Disp: , Rfl: predniSONE (Deltasone) 5 MG tablet, Take 5 mg by mouth As directed, Disp: , Rfl: pregabalin (Lyrica) 25 MG capsule, Take 1 capsule (25 mg) by mouth in the morning and 1 capsule (25mg) before bedtime., Disp: 60 capsule, Rfl: 0 tiZANidine (Zanaflex) 4 MG tablet, Take 4 mg by mouth every 6 (six) hours if needed, Disp: , Rfl: traMADol (Ultram) 50 MG tablet, Take 50 mg by mouth 3 (three) times a day as needed for moderate pain or severe pain, Disp: , Rfl: triamterene-hydrochlorothiazide (Maxzide-25) 37.5-25 MG tablet, Take 1 tablet by mouth Daily, Disp:, Rfl: Turmeric 500 MG capsule, as directed Orally, Disp: , Rfl: ROS: General: denies fever, chills, fatigue, malaise OBJECTIVE LE EXAM: Derm: Sutures intact to left foot with negative erythema, negative drainage, minimal edema with negative clinical signs of infection. Kwire intact to left 3rd toe Vascular: Palpable pedal pulses to left foot Neuro: Gross sensation diminished to left foot. Musculoskeletal: Negative pain on palpation toleft calf. Ortho: Ankle range of motion less than 10 degrees of dorsiflexion at left ankle joint. Rectus left 3rd toe XRAY: XR foot 3+ views left Imaging Result: K-wire fixation intact with PIPJ arthrodesis site intact to the 3rd digit with rectus 3rd digit noted ASSESSMENT 7 days s/p left 3rd hammer toe repair with kwire 1. Acquired deformity of left toe 2. Other polyneuropathy PLAN Patient to keep dry sterile dressing intact and keep dressing dry with partial weightbearing with walking boot Patient may take anti-inflammatories as needed for pain. May continue with ice to foot as needed p.r.n. Reviewed xrays today with patient. Elie Harper DPM documented in this encounterNOSt. Louis Children's [id number] Telephone encounter Note* Telephone Encounter - Shelly Ford NP - 01/17/2025 2:45 PM EDT OARRs reviewed. Rx sent for [facility] [id number] Miscellaneous Notes* Telephone Encounter - Shelly Ford NP - 01/17/2025 2:45 PM EDT OARRs reviewed. Rx sent for [facility]. * Telephone Encounter - Elie Estrada MA - 01/17/2025 9:18 AM EDT The pt calls in requesting a refill of pregabalin 12/12/2024 Continue Lyrica 25 mg by mouth twice a day. OARRS reviewed due 01/20/2025 documented in this encounterBarnes-Jewish West [facility] HospitalTdryyfpxdc03-90-5699 History of Present illness Narrative* Elie Harper DPM - 01/17/2025 10:00 AM EDT Patient: Danyelle Erickson Aries : 1955 PCP: Yulisa Batres MD SUBJECTIVE Patient also has complaints of left 3rd hammertoe and pain to the end of the toe has tried crest pads with negative improvement states it is achy at times. Patient states she has had increased pain and has been taking oral abx with some improvement. Patient denies N/F/V/C. Patient has had revisional knee sx in the recent past. Decision for surgery today of a left 3rd toe PIPJ arthrodesis with K-wire under local anesthetic Allergies: Allergies Allergen Reactions Gabapentin (Once-Daily) Other [...] capsule, 4 capsules Orally before any dental procedure (Patient not taking: Reported on 12/12/2024), Disp: , Rfl: ascorbic acid (Vitamin C) 500 MG tablet, Take 1,000 mg by mouth in the morning., Disp: , Rfl: biotin 1 MG capsule, Take 2 mg by mouth in the morning., Disp: , Rfl: Calcium Carb-Cholecalciferol (Oyster Shell Calcium w/D) 500-5 MG-MCG tablet, Take by mouth Daily, Disp: , Rfl: Calcium-Vitamin D-Vitamin K (Calcium + D) 500-1000-40 MG-UNT-MCG chewable tablet, 1 (one) time eachday at the same time. (Patient not taking: Reported on 10/15/2024), Disp: , Rfl: carvedilol (Coreg) 25 MG tablet, Take 25 mg by mouth in the morning and 25 mg in the evening. Take with meals., Disp: , Rfl: cephalexin (Keflex) 500 MG capsule, Take 1 capsule (500 mg) by mouth in the morning and 1 capsule (500 mg) in the evening and 1 capsule (500 mg) before bedtime. Do all this for 10 days. Take one tablet by mouth three times daily., Disp: 30 capsule, Rfl: 0 diclofenac sodium 1 % gel, External for 19 Days, Disp: , Rfl: doxazosin (Cardura) 4 MG tablet, Take 4 mg by mouth 1 (one) time each day at the same time, Disp: ,Rfl: folic acid (Folvite) 1 MG tablet, Take 1,000 mcg by mouth in the morning., Disp: , Rfl: Zpjywdmlnjv-Iqjszpmah-Ptf C-Mn (Glucosamine 1500 Complex) capsule, as directed Orally, Disp: , Rfl: hydroxychloroquine (Plaquenil) 200 MG tablet, Take 200 mg by mouth in the morning and 200 mg beforebedtime., Disp: , Rfl: ibandronate (Boniva) 150 MG [...] methylPREDNISolone (Medrol Dospak) 4 MG tablets, TAKE DIRECTED (Patient not taking: Reported on 12/24/2024), Disp: , Rfl: Multiple Vitamin (multivitamin) tablet, Take 1 tablet by mouth Daily, Disp: , Rfl: pantoprazole (ProtoNix) 40 MG EC tablet, Take 40 mg by mouth in the morning. Take before meals., Disp: , Rfl: predniSONE (Deltasone) 5 MG tablet, Take 5 mg by mouth As directed, Disp: , Rfl: pregabalin (Lyrica) 25 MG capsule, Take 1 capsule (25 mg) by mouth in the morning and 1 capsule (25mg) before bedtime., Disp: 60 capsule, Rfl: 2 tiZANidine (Zanaflex) 4 MG tablet, Take 4 mg by mouth every 6 (six) hours if needed, Disp: , Rfl: traMADol (Ultram) 50 MG tablet, Take 50 mg by mouth 3 (three) times a day as needed for moderate pain or severe pain, Disp: , Rfl: triamterene-hydrochlorothiazide (Maxzide-25) 37.5-25 MG tablet, Take 1 tablet by mouth Daily, Disp:, Rfl: Turmeric 500 MG capsule, as directed [...] Insecurity: No Food Insecurity (11/29/2023) Received from [facility], [facility] Hunger Vital Sign Worried About Running Out of Food in the Last Year: Never true Ran Out of Food in the Last Year: Never true Transportation Needs: No Transportation Needs (11/29/2023) Received from [facility], [facility] PRAPARE - Transportation Lack of Transportation (Medical): No Lack of Transportation (Non-Medical): No Physical Activity: Not on file Stress: Not on file Social Connections: Not on file Intimate Partner Violence: Not on file Housing Stability: Low Risk (11/29/2023) Received from [facility], [facility] Housing Stability Vital Sign Unable to Pay for Housing in the Last Year: No Number of Places Lived in the Last Year: 1 Unstable Housing in the Last Year: No ROS: Gastrointestinal: denies abdominal pain, ulcers, or changes in appetite or bowel habits Musculoskeletal: positive history arthritis with spinal knee and hip surgery in the past Cardiovascular: denies CP, palpitations, irregular rhythms OBJECTIVE LE EXAM: DERM: Elongated thick yellow crumbly nails digits 1 through 10. Diminished hair growth b/l feet. Rubor noted to the left 3rd digit PIPJ region with diminished erythema surrounding distal left 3rd toe with a 0.1 cm x 0.1 cm x 0.2 cm subcutaneous thickness depth ulceration with slight fibrous slough and serous drainage with negative probe to bone VASC: Positive palpable pedal pulses bilaterally NEURO: Gross sensation diminished to bilateral feet ORTHO: Positive pain on palpation to nails 1 through 10 Left 3rd flexion deformity of toe that is non reducible diminished pain on palpation left 3rd toe ASSESSMENT 1. Cellulitis of left foot 2. Acquired deformity of left toe 3. Foot ulcer, left, with fat layer exposed (CMS/HCC) 4. Other polyneuropathy PLAN Patient to finish oral antibiotics Patient to continue with Betadine to end of digit of the left 3rd toe and contact Podiatry if any issues Patient to continue offload toe with padding Sharp debridement with 15 blade of subcutaneous ulceration to left foot with active bleeding noted and removal and excision of fibrotic and necrotic tissue to wound and DSD applied with neosporin. Ptto continue with Betadine daily Patient given prescription for pain medication to be taken postoperatively. Decision for surgery today and patient medically cleared from a podiatric standpoint for surgery and to proceed with surgery. Pt to have pre op H/P per PCP for medical clearance for surgery and will be reviewed along with labs prior to surgery. Pt scheduled for left 3rd toe PIPJ arthrodesis with K-wire under local anesthetic Discussed with the patient the nature of condition and operative vs nonoperative care. The surgicalplans, risks, alternatives, benefits, post op complications and superintendent terminal expectations were discussed including but not limited to: infection,bone infection,wound dehiscence hardware failure and irritation,wound dehiscence,delay union/mal union/non union of bone. RSDS,neuroma,duty limitations,DVT/PE, NH,nerve damage, scar, loss of sensation, swelling. Pt understands the proposed sx in detail and has agreed with proposed surgery. No guarantees were given or implied. Pt willingly consents to procedure and to have surgical procedure. Pt also understands risks including COVID-19 current risk in a surgical setting. Pt is a low acceptable risk for outpatient surgery from a podiatric standpoint with an ASA of a 2. Elie Harper DPM, FACFAS H&P up to date and current (date) Elie Harper DPM January 17, 2025 documented in this encounterBarnes-Jewish [facility] [id number] Telephone encounter Note* Telephone Encounter - Elie Estrada MA - 01/17/2025 9:18 AM EDT The pt calls in requesting a refill of pregabalin 12/12/2024 Continue Lyrica 25 mg by mouth twice a day. OARRS reviewed due 01/20/2025 [facility] [id number] History of Present illness Narrative* Elie Harper DPM - 01/10/2025 10:20 AM EST Patient: Danyelle Haskins : 1955 PCP: Yulisa Batres MD SUBJECTIVE Patient also has complaints of left 3rd hammertoe and pain to the end of the toe has tried crest pads with negative improvement states it is achy at times. Patient states she has had increased pain and has been taking oral abx with some improvement. Patient denies N/F/V/C. Patient has had revisional knee sx in [...] Peripheral neuropathy Polyneuropathy PVD (peripheral vascular disease) ([facility]) Radiculopathy, lumbosacral region Small fiber neuropathy Spinal stenosis excluding cervical region lumbar region, without neurogenic claudication Spondylolisthesis Trigeminal neuralgia ([facility]) Medications: Current Outpatient Medications: acetaminophen (Tylenol 8 Hour) 650 MG ER tablet, Take 1-2 tablets by mouth 2 (two) times a day as needed for mild pain or moderate pain Do not crush, chew, or split., Disp: , Rfl: amoxicillin (Amoxil) 500 MG capsule, 4 capsules Orally before any dental procedure (Patient not taking: Reported on 12/12/2024), Disp: , Rfl: ascorbic acid (Vitamin C) 500 MG tablet, Take 1,000 mg by mouth in the morning., Disp: , Rfl: biotin 1 MG capsule, Take 2 mg by mouth in the morning., Disp: , Rfl: Calcium Carb-Cholecalciferol (Oyster Shell Calcium w/D) 500-5 MG-MCG tablet, Take by mouth Daily, Disp: , Rfl: Calcium-Vitamin D-Vitamin K (Calcium + D) 500-1000-40 MG-UNT-MCG chewable tablet, 1 (one) time eachday at the same time. (Patient not taking: Reported on 10/15/2024), Disp: , Rfl: carvedilol (Coreg) 25 MG tablet, Take 25 mg by mouth in the morning and 25 mg in the evening. Take with meals., Disp: , Rfl: clindamycin (Cleocin) 300 MG capsule, Take 1 capsule (300 mg) by mouth in the morning and 1 capsule(300 mg) in the evening and 1 capsule (300 mg) before bedtime. Do all this for 10 days., Disp: 30 capsule, Rfl: 0 diclofenac sodium 1 % gel, External for 19 Days, Disp: , Rfl: doxazosin (Cardura) 4 MG tablet, Take 4 mg by mouth 1 (one) time each day at the same time, Disp: ,Rfl: folic acid (Folvite) 1 MG tablet, Take 1,000 mcg by mouth in the morning., Disp: , Rfl: Dbzxjoaajqs-Yqtnelqlf-Guf C-Mn (Glucosamine 1500 Complex) capsule, as directed Orally, Disp: , Rfl: hydroxychloroquine (Plaquenil) 200 MG tablet, Take 200 mg by mouth in the morning and 200 mg beforebedtime., Disp: , Rfl: ibandronate (Boniva) 150 MG [...] methylPREDNISolone (Medrol Dospak) 4 MG tablets, TAKE DIRECTED (Patient not taking: Reported on 12/24/2024), Disp: , Rfl: Multiple Vitamin (multivitamin) tablet, Take 1 tablet by mouth Daily, Disp: , Rfl: pantoprazole (ProtoNix) 40 MG EC tablet, Take 40 mg by mouth in the morning. Take before meals., Disp: , Rfl: predniSONE (Deltasone) 5 MG tablet, Take 5 mg by mouth As directed, Disp: , Rfl: pregabalin (Lyrica) 25 MG capsule, Take 1 capsule (25 mg) by mouth in the morning and 1 capsule (25mg) before bedtime., Disp: 60 capsule, Rfl: 2 tiZANidine (Zanaflex) 4 MG tablet, Take 4 mg by mouth every 6 (six) hours if needed, Disp: , Rfl: traMADol (Ultram) 50 MG tablet, Take 50 mg by mouth 3 (three) times a day as needed for moderate pain or severe pain, Disp: , Rfl: triamterene-hydrochlorothiazide (Maxzide-25) 37.5-25 MG tablet, Take 1 tablet by mouth Daily, Disp:, Rfl: Turmeric 500 MG capsule, as directed [...] Insecurity: No Food Insecurity (11/29/2023) Received from [facility], [facility] Hunger Vital Sign Worried About Running Out of Food in the Last Year: Never true Ran Out of Food in the Last Year: Never true Transportation Needs: No Transportation Needs (11/29/2023) Received from [facility], [facility] PRAPARE - Transportation Lack of Transportation (Medical): No Lack of Transportation (Non-Medical): No Physical Activity: Not on file Stress: Not on file Social Connections: Not on file Intimate Partner Violence: Not on file Housing Stability: Low Risk (11/29/2023) Received from [facility], [facility] Housing Stability Vital Sign Unable to Pay for Housing in the Last Year: No Number of Places Lived in the Last Year: 1 Unstable Housing in the Last Year: No ROS: Gastrointestinal: denies abdominal pain, ulcers, or changes in appetite or bowel habits Musculoskeletal: positive history arthritis with spinal knee and hip surgery in the past Cardiovascular: denies CP, palpitations, irregular rhythms OBJECTIVE LE EXAM: DERM: Elongated thick yellow crumbly nails digits 1 through 10. Diminished hair growth b/l feet. Rubor noted to the left 3rd digit PIPJ region with diminished erythema surrounding distal left 3rd toe with a 0.2 cm x 0.2 cm x 0.2 cm subcutaneous thickness depth ulceration with slight fibrous slough and serous drainage with negative probe to bone VASC: Positive palpable pedal pulses bilaterally NEURO: Gross sensation diminished to bilateral feet ORTHO: Positive pain on palpation to nails 1 through 10 Left 3rd flexion deformity of toe that is non reducible diminished pain on palpation left 3rd toe ASSESSMENT 1. Cellulitis of left foot 2. Acquired deformity of left toe 3. Foot ulcer, left, with fat layer exposed (CMS/HCC) 4. Other polyneuropathy PLAN Patient continue with oral antibiotics with new prescription written today Patient to continue with Betadine to end of digit of the left 3rd toe and contact Podiatry if any issues Patient to continue offload toe with padding Discussed conservative and surgical treatment options for patient today including postoperative time frame and surgical procedure in detail. Patient may continue with conservative treatments including boza-idh-mhfdqzs anti- inflammatories and other treatments suggested today. Patient may want to be s cheduled for surgical intervention in the near future. Discussed possible left 3rd digit PIPJ arthrodesis procedure with K-wire if necessary. Patient will need antibiotic prophylaxis of 2 g of amoxicillin prior to procedure Sharp debridement with 15 blade of subcutaneous ulceration to left foot with active bleeding noted and removal and excision of fibrotic and necrotic tissue to wound and DSD applied with neosporin. Ptto continue with Betadine daily Elie Harper DPM documented in this encounterBarnes-Jewish West County [id number] History of Present illness Narrative* Elie Harper DPM - 01/02/2025 3:00 PM EST Patient: Danyelle Haskins : 1955 PCP: Yulisa Batres MD SUBJECTIVE Patient also has complaints of left 3rd hammertoe and pain to the end of the toe has tried crest pads with negative improvement states it is achy at times. Patient states she has had increased pain and redness to the distal aspect of the left 3rd toe and been treating with iodine and denies nausea vomiting chills Patient has had revisional knee sx in [...] capsule, 4 capsules Orally before any dental procedure (Patient not taking: Reported on 12/12/2024), Disp: , Rfl: ascorbic acid (Vitamin C) 500 MG tablet, Take 1,000 mg by mouth in the morning., Disp: , Rfl: biotin 1 MG capsule, Take 2 mg by mouth in the morning., Disp: , Rfl: Calcium Carb-Cholecalciferol (Oyster Shell Calcium w/D) 500-5 MG-MCG tablet, Take by mouth Daily, Disp: , Rfl: Calcium-Vitamin D-Vitamin K (Calcium + D) 500-1000-40 MG-UNT-MCG chewable tablet, 1 (one) time eachday at the same time. (Patient not taking: Reported on 10/15/2024), Disp: , Rfl: carvedilol (Coreg) 25 MG tablet, Take 25 mg by mouth in the morning and 25 mg in the evening. Take with meals., Disp: , Rfl: diclofenac sodium 1 % gel, External for 19 Days, Disp: , Rfl: doxazosin (Cardura) 4 MG tablet, Take 4 mg by mouth 1 (one) time each day at the same time, Disp: ,Rfl: folic acid (Folvite) 1 MG tablet, Take 1,000 mcg by mouth in the morning., Disp: , Rfl: Awntqgcenwm-Jmexcnpvu-Twr C-Mn (Glucosamine 1500 Complex) capsule, as directed Orally, Disp: , Rfl: hydroxychloroquine (Plaquenil) 200 MG tablet, Take 200 mg by mouth in the morning and 200 mg beforebedtime., Disp: , Rfl: ibandronate (Boniva) 150 MG [...] methylPREDNISolone (Medrol Dospak) 4 MG tablets, TAKE DIRECTED (Patient not taking: Reported on 12/24/2024), Disp: , Rfl: Multiple Vitamin (multivitamin) tablet, Take 1 tablet by mouth Daily, Disp: , Rfl: pantoprazole (ProtoNix) 40 MG EC tablet, Take 40 mg by mouth in the morning. Take before meals., Disp: , Rfl: predniSONE (Deltasone) 5 MG tablet, Take 5 mg by mouth As directed, Disp: , Rfl: pregabalin (Lyrica) 25 MG capsule, Take 1 capsule (25 mg) by mouth in the morning and 1 capsule (25mg) before bedtime., Disp: 60 capsule, Rfl: 2 tiZANidine (Zanaflex) 4 MG tablet, Take 4 mg by mouth every 6 (six) hours if needed, Disp: , Rfl: traMADol (Ultram) 50 MG tablet, Take 50 mg by mouth 3 (three) times a day as needed for moderate pain or severe pain, Disp: , Rfl: triamterene-hydrochlorothiazide (Maxzide-25) 37.5-25 MG tablet, Take 1 tablet by mouth Daily, Disp:, Rfl: Turmeric 500 MG capsule, as directed [...] Insecurity: No Food Insecurity (11/29/2023) Received from [facility], [facility] Hunger Vital Sign Worried About Running Out of Food in the Last Year: Never true Ran Out of Food in the Last Year: Never true Transportation Needs: No Transportation Needs (11/29/2023) Received from [facility], [facility] PRAPARE - Transportation Lack of Transportation (Medical): No Lack of Transportation (Non-Medical): No Physical Activity: Not on file Stress: Not on file Social Connections: Not on file Intimate Partner Violence: Not on file Housing Stability: Low Risk (11/29/2023) Re[facility] from [facility], [facility] Housing Stability Vital Sign Unable [...] the left 3rd digit PIPJ region with erythema surrounding distal left 3rd toe with area of macerated tissue VASC: Positive palpable pedal pulses bilaterally NEURO: Gross sensation intact to bilateral feet ORTHO: Positive pain on palpation to nails 1 through 10 Left 3rd flexion deformity of toe that is non reducible Positive pain on palpation left 3rd toe ASSESSMENT 1. Cellulitis of left foot 2. Acquired deformity of left toe PLAN Patient placed on oral antibiotics Patient to continue with Betadine to end of digit of the left 3rd toe and contact Podiatry if any issues Elie Harper DPM documented in this encounterBarnes-Jewish West County [id number] History of Present illness Narrative* Gaby Christianson NP - 12/12/2024 11:20 AM EST Images from the original note were not included. Chief Complaint Patient presents with Numbness Tingling Subjective Danyelle Haskins is a 69 y.o. female. History of Present Illness The patient presents today for follow-up. She had an EMG of the bilateral upper extremities completed for review. At the prior appointment, pregabalin dose was increased to 50 mg twice a day, however, this was not tolerated due to side effects (unsteadiness, weakness, and fatigue). The patient's dose was subsequently reduced back to 25 mg twice a day which she reports doing well on. The patient had Botox injections via Dr. Kaufman most recently on 10/25/2024. These were well tolerated and continue to alleviate her facial spasms. The patient continues to have right-sided low back pain. This has remained generally unchanged. It is most prominent upon waking in the morning and typically improves within 1 to 1.5 hours. It is intermittent and tolerable. She describes it as stiffness. The patient's back pain is relieved by physical therapy, and she uses exercises that were taught to her by physical therapists at home. She doesnot want to repeat lumbar injections yet at this time. She reports some intermittent numbness and tingling in the bilateral feet. She denies saddle anesthesia, bowel dysfunction, or progressive weakness. The patient reports constant numbness in the left thumb but denies sensory disturbance in any of the other digits recently. Symptoms do not interfere with her sleep or ability to perform activities. She has not noticed any definitive hand weakness but states things can, slip out, of her hands more than they used to. She states holding onto her walker or carrying a bag can aggravate her symptoms. She denies numbness, paresthesias, or weakness in the right hand or wrist. She denies any further new concerns. Review of Systems Constitutional: Negative for appetite [...] suicidal ideas. The patient is not nervous/anxious. Home Medication List acetaminophen 650 MG ER tablet; Commonly known as: Tylenol 8 Hour ascorbic acid 500 MG tablet; Commonly known as: Vitamin C biotin 1 MG capsule carvedilol 25 MG tablet; Commonly known as: Coreg diclofenac sodium 1 % gel doxazosin 4 MG tablet; Commonly known as: Cardura folic acid 1 MG tablet; Commonly known as: Folvite Glucosamine 1500 Complex capsule hydroxychloroquine 200 MG tablet; Commonly known as: Plaquenil ibandronate 150 MG tablet; Commonly known as: Boniva leflunomide 20 MG tablet; Commonly known as: Arava lisinopril 40 MG tablet methotrexate 2.5 MG tablet Multivitamin tablet Oyster Shell Calcium w/D 500-5 MG-MCG tablet pantoprazole 40 MG EC tablet; Commonly known as: ProtoNix predniSONE 5 MG tablet; Commonly known as: Deltasone pregabalin 25 MG capsule; Commonly known as: Lyrica traMADol 50 MG tablet; Commonly known as: Ultram tizanidine 4 MG tablet; Commonly known as: Zanaflex triamterene-hydrochlorothiazide 37.5-25 MG tablet; Commonly known as: [...] Relation Name Age of Onset Cancer Mother Ekta Haskins Macular degeneration Mother Ekta Haskins Cancer Father Carmelo Haskins Cancer Sister Loretta Bruce Cataracts Sister Loretta Bruce Diabetes Sister Loretta Bruce Cataracts Sister Anh Yadira Cancer Mother's Sister Kelsie Denise Cataracts Mother's Sister Bertha Denise Stroke Mother's Sister Bertha Denise Cancer Maternal Grandfather Josiah Denise Heart disease Other Social History Tobacco Use Smoking status: Never Smokeless tobacco: Never Substance Use Topics Alcohol use: Defer Comment: Caffeine: Current some days Allergies: Gabapentin (once-daily), Alendronate, Gabapentin, Oxcarbazepine, Levofloxacin, and Sulfamethoxazole-trimethoprim Vitals: 12/12/24 1130 BP: 140/84 Pulse: 85 SpO2: 97% Body mass index is 33.75 kg/m . weight: 222 lb Neurologic exam: Mental status and general appearance: Awake and alert with unlabored respirations. Oriented to person, place, and time. Recent and remotememory are intact. Speech is clear and fluent without aphasia. Speech is non-dysarthric. Attention and concentration are normal. Fund of knowledge is appropriate for level of education. Pleasant. Cranial nerves: CN II: Visual acuity is normal. Visual smith full to confrontation. CN III, IV, : [...] wrist extensors , wrist flexor , and treating plant supervisor strength 5/5. LUE strength deltoid , biceps , triceps , wrist extensors , wrist flexor , and treating plant supervisor strength 5/5. RLE strength iliopsoas, quadriceps, tibialis anterior, and plantar flexion strength 5/5. LLE strength iliopsoas, quadriceps, tibialis anterior, and plantar flexion strength 5/5. Tone and bulk are normal. Sensory: Sensation is intact to light touch throughout all four extremities. Sensation is intact to temperature in all extremities. Vibratory sensation absent at the left great toe and diminished at the right great toe. Reflexes: RUE biceps reflex 2+ , brachioradialis reflex 2+. LUE biceps reflex 2+ , brachioradialis reflex 2+. RLE knee reflex 0. LLE knee reflex 0. Coordination: Wxgaoh-cu-bzmo testing normal. Rapid alternating movements are normal. Gait: Steady. Utilizing walker. Review and summary of old records: EMG of the bilateral upper extremities at [facility] on 10/23/24: Bilateral median neuropathies, at or distal to the wrist, such as in carpal tunnel syndrome, which are moderate on the left and minimal on the right in degree electrically. Bilateral chronic C8 radiculopathies which are mild in degree electrically. MRI of the lumbar spine at the [facility] on 04/01/21: Posterior decompression and transpedicular fusion L2-S1. Diffuse degenerative changes. L1- L2 severe central canal stenosis of 4.7 mm [...] and MRI of the lumbar spine in March 2021 revealed severe spinal canal stenosis at L1. I reviewed Dr. Wyman neurosurgery consultation note from August 2021. Dr. Wyman opted out of surgery and felt pain management was appropriate, as the patient had no symptoms of neurogenic claudication at the time. The patient reports right-sided low backpain. She also reports subjective lower extremity weakness, but no focal weakness is appreciated onclinical exam. She has paresthesias in the distal bilateral lower extremities, however, these may be secondary to peripheral neuropathy. No other apparent radicular symptoms. Right L4/L5/S1 facet injections on 03/08/23 were highly beneficial (initially with 100% pain reduction and effects lasting > 3 months). The patient remains physically active at home, and symptoms remain tolerable recently. She does not wish to repeat injections at this time. PLAN: - Hold off on further facet injections at this time per patient request due to symptom stability - Continue Lyrica 25 mg by mouth twice a day. OARRS reviewed - Of note, she also follows with rheumatology and is prescribed Tramadol, prednisone, tizanidine, and hydroxychloroquine Blepharospasm The patient receives Botox injections via Dr. Kaufman which provide significant benefit. Seemingly well controlled today with most recent injection on 10/25/2024. PLAN: - Follow up with Dr. Kaufman for evaluation and management Polyneuropathy The patient reports asymmetric paresthesias in the distal bilateral lower extremities (left more significant than right). She has historically been diagnosed with polyneuropathy, and lab work in the past was unremarkable for cause. This may be idiopathic. No reported history of diabetes or alcohol abuse. Symptoms are tolerable on the current dose of Lyrica. Zonisamide was previously ineffective. PLAN: - EMG has been recommended previously but declined by the patient - Continue Lyrica 25 mg by mouth twice a day. OARRS reviewed - Fall prevention measures were discussed Carpal tunnel syndrome (CTS), bilateral The patient has bilateral carpal tunnel syndrome as identified on [facility] EMG from 10/23/24 (moderate on the left and minimal on the right). She denies any symptoms consistent with CTS in the right hand or wrist but does report constant numbness in the left 1st digit which is likely secondary to CTS. No focal weakness is identified on clinical exam today. Cock-up wrist splint has provided symptomaticbenefit. PLAN: - I reviewed EMG results with the patient - Continue use of left cock-up wrist splint at bedtime - We discussed referral to orthopedic surgery for further evaluation and consideration of corticosteroid injections versus decompressive surgery for symptom management. The patient declined referral for now and states she is, tired, of surgery. She understands that CTS has the potential to resultin progressively worsening sensory disturbance, numbness, weakness, and/or impaired hand function if not surgically treated. She accepts this risk Diagnosis and treatment options discussed in detail. All questions answered. The patient verbalizesunderstanding and is agreeable to the plan. Discussion in layman's terms. Follow up in the office within 3 months; sooner if needed for new or worsening symptoms. Gaby Christianson NP [facility] documented in this encounterBarnes-Jewish West County [id number] History of Present illness Narrative* Dania Ledezmaclair - 11/28/2024 11:10 AM EST Ortho Nurse - Established Patient Intake Room#: room 3---- pt is here today for her 1 yr follow-up L TKA with extensor mechanism reconstruction with mesh and R TKA with a periprosthetic patellar fracture . She states she is doing okay and feels she is not bouncing back like she thought she was. She still feels unsteady with the knees and does feel steady enough to move to a cane. She is still using a walker everywhere she goes. She states she feels something catching or shifting in the left knee when she bends the knee. She also states she has times where she tries to get up out of a chair to stand and both knees lock up on her and she can't fully extent them. She states this happens about every 3-4 days. She has been going to the [facility] and getting in the pool and doing some exercises. She finished formal PT in August and her therapist mentioned to her about maybe getting a script for water therapy. She is taking Tylenol Arthritis and tramadol. She rates her pain on a scale of 1/10. Date: 11/28/2024 11:20 AM Patient: Danyelle Haskins MR#: [id number] : 1955 Age: 69 y.o. Referring Physician: Self, Self Insurance: Payor: MEDICARE / Plan: MEDICARE A AND B / Product Type: *No Product type* / Chief Complaint Patient presents with Left Knee - Follow-up Right Knee - Follow-up Visit Vitals Ht 1.702 m (5' 7 ) Wt 107 kg (236 lb) BMI 36.96 kg/m Pain 1. Are you having pain? [...] CATARACT W/ IMPLANT (ECCE IOL) Bilateral 2018 [facility] TREATMENT OPEN PATELLAR FX W/ INTERNAL FIXATION [...] times daily October 01, 2020 10:38am 10-01-2020 [facility] ([id number]) Docusate 100 MG capsule Take 1 capsule by mouth 2 times daily. 60 capsule 0 Doxazosin 4 MG tablet Take 1 tablet by mouth daily. Folic acid 1 MG tablet Take 1 tablet by mouth daily. Tvbbhcmgvxo-Iqhtntwzm-Cdx C-Mn (Glucosamine 1500 Complex) capsule Take by [...] oxcarbazepine, bactrim [sulfamethoxazole-trimethoprim], levofloxacin, sulfamethoxazole, and trimethoprim. * New Mcclure MD - 11/28/2024 11:10 AM EST HPI: Patient is here with a female friend, for her 4-5 month follow up. She is concerned about getting up and down from a sitting position. PHYSICAL EXAM: This is an alert, oriented, and age-appropriate female. She is in no distress. Pleasant and cooperative. EXTREMITIES: The bilateral lower extremities have no gross deformities. Normal stability. Skin Intact. 5/5 motor. Intact sensation. Palpable defect of right patella. Normal neurovascular status. Normal coordination. Range of motion upon exam today is 0-120 bilaterally. Stable examination to varus and valgus stress. Full motion of hip. No pain. No impingement. No instability. Contralateral leg has normal alignment. Full motion. No pain. No impingement. No instability. IMAGING: Plain film radiographs reviewed. Multiple views of the knees demonstrate a left knee revision with extensor mechanism repair in good position and alignment as well as right knee arthroplastyin place with evidence of periprosthetic displaced patella fracture in unchanged position and alignment. IMPRESSION: 1.) History of left knee instability, status post revision, history of multiple left knee extensor reconstruction with mesh allograft. 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 PLAN: I feel she should continue to do what she is doing and allow the knees to continue to heal. Functionally both knees are mechanically working equally. Until our hands are pressed we will avoid surgery. She agreed. I would like her to return yearly. I have reviewed the findings of my clinical staff below and agree with their assessment. Vitals: 11/28/24 1119 Weight: 107 kg (236 lb) Height: 1.702 m (5' 7 ) Pain Recent Labs No results found for: [...] Arthritis Back pain Connective tissue disease non-specific Easy bruising Essential hypertension, benign Insomnia Joint [...] CATARACT W/ IMPLANT (ECCE IOL) Bilateral 2018 [facility] TREATMENT OPEN PATELLAR FX W/ INTERNAL FIXATION [...] Mild Pain., Disp: 50 tablet, Rfl: 1 Ascorbic acid 500 MG tablet, Take 1 tablet by mouth daily., Disp: , Rfl: Biotin 1 MG capsule, Take by mouth daily., Disp: , Rfl: carveDILOL 25 MG tablet, Take 1 tablet by mouth 2 times daily., Disp: , Rfl: Diclofenac Sodium 1 % Gel gel, Diclofenac Diclofenac Sodium Active 4 GM Topical Four times daily October 01, 2020 10:38am 10-01-2020 [facility] ([id number]), Disp: , Rfl: Doxazosin 4 MG tablet, Take 1 tablet by mouth daily., Disp: , Rfl: Folic acid 1 MG tablet, Take 1 tablet by mouth daily., Disp: , Rfl: Aqfkhybidxu-Wwauyvrbq-Mnm C-Mn (Glucosamine 1500 Complex) capsule, Take by [...] tablet by mouth daily., Disp: , Rfl: methotrexate 2.5 MG tablet, every 7 days., [...] capsule, every 12 hours., Disp: , Rfl: tiZANidine 4 MG tablet, Take 1 tablet by mouth every 6 hours as needed for Muscle spasms., Disp: , Rfl: traMADol 50 MG tablet, Take 1 tablet by mouth 3 times daily as needed for Pain., Disp: , Rfl: triamterene-hydrochlorothiazide 37.5-25 MG Cap, Take 1 capsule by mouth as needed (edema)., Disp: ,Rfl: TURMERIC PO, as directed Orally, Disp: , [...] clot prevention, Disp: 70 tablet, Rfl: 0 Docusate 100 MG capsule, Take 1 capsule by mouth 2 times daily., Disp: 60 capsule, Rfl: 0 Meloxicam 7.5 MG tablet, Take 1 tablet by mouth daily. Take with food., Disp: 30 tablet, Rfl: 0 oxyCODONE 5 MG tablet, Take 1-2 tabs po q 4-6 hours prn pain. Wean as tolerated., Disp: 30 tablet, Rfl: 0 Sucralfate 1 g tablet, Take 1 tablet by mouth 2 times daily., Disp: 60 tablet, Rfl: 0 therapeutic multivitamin-minerals tablet, Take 1 tablet by mouth at bedtime., Disp: 30 tablet, Rfl:0 Allergies Allergen Reactions Ciprofloxacin Other reaction(s): Allergy critical , tendon rupture Gralise [Gabapentin (Once-Daily)] Blisters Caused the skin on her lips to peel and nervousness Alendronate Abdominal Discomfort and Dyspepsia Gabapentin Nausea and Vomiting Oxcarbazepine Nausea and Vomiting Bactrim [Sulfamethoxazole-Trimethoprim] Myalgia Levofloxacin Tendon rupture Sulfamethoxazole Weakness Trimethoprim Weakness documented in this [facility]01-09-2025 History of Present illness Narrative* Elie Harper DPM - 11/15/2024 2:40 PM EST Patient: Danyelle Haskins : 1955 PCP: Yulisa Batres MD SUBJECTIVE Patient presents today with a CC of elongated, thick nails. Pt states nails have been elongated and thick for many years and cause pain with ambulation in shoegear. Pt has tried previous treatment with minimal relief. Pt presents today for nail care and treatment. Patient also has complaints of left 3rd hammertoe and pain to the end of the toe has tried crest pads with negative improvement states it is achy at times Patient has had revisional knee sx in [...] Fibromyalgia Hemifacial spasm History of transfusion Hypertension ([facility] Muscle spasm Osteopenia Peripheral neuropathy Polyneuropathy PVD (peripheral vascular disease) ([facility]) Radiculopathy, lumbosacral region Small fiber neuropathy Spinal stenosis excluding cervical region lumbar region, without neurogenic claudication Spondylolisthesis Trigeminal neuralgia ([facility]) Medications: Current Outpatient Medications: acetaminophen (Tylenol 8 Hour) 650 MG ER tablet, Take 1-2 tablets by mouth 2 (two) times a day as needed for mild pain or moderate pain Do not crush, chew, or split., Disp: , Rfl: amoxicillin (Amoxil) 500 MG capsule, 4 capsules Orally before any dental procedure (Patient not taking: Reported on 10/15/2024), Disp: , Rfl: ascorbic acid (Vitamin C) 500 MG tablet, Take 1,000 mg by mouth in the morning., Disp: , Rfl: biotin 1 MG capsule, Take 2 mg by mouth in the morning., Disp: , Rfl: Calcium Carb-Cholecalciferol (Oyster Shell Calcium w/D) 500-5 MG-MCG tablet, Take by mouth Daily (Patient not taking: Reported on 10/15/2024), Disp: , Rfl: Calcium-Vitamin D-Vitamin K (Calcium + D) 500-1000-40 MG-UNT-MCG chewable tablet, 1 (one) time eachday at the same time. (Patient not taking: Reported on 10/15/2024), Disp: , Rfl: carvedilol (Coreg) 25 MG tablet, Take 25 mg by mouth in the morning and 25 mg in the evening. Take with meals., Disp: , Rfl: diclofenac sodium 1 % gel, External for 19 Days, Disp: , Rfl: doxazosin (Cardura) 4 MG tablet, Take 4 mg by mouth 1 (one) time each day at the same time, Disp: ,Rfl: folic acid (Folvite) 1 MG tablet, Take 1,000 mcg by mouth in the morning., Disp: , Rfl: Dckjwbegfoy-Okjtvfbrq-Jds C-Mn (Glucosamine 1500 Complex) capsule, as directed Orally, Disp: , Rfl: hydroxychloroquine (Plaquenil) 200 MG tablet, Take 200 mg by mouth in the morning and 200 mg beforebedtime., Disp: , Rfl: ibandronate (Boniva) 150 MG [...] MG tablets, TAKE DIRECTED, Disp: , Rfl: Multiple Vitamin (multivitamin) tablet, Take 1 tablet by mouth Daily, Disp: , Rfl: pantoprazole (ProtoNix) 40 MG EC tablet, Take 40 mg by mouth in the morning. Take before meals., Disp: , Rfl: predniSONE (Deltasone) 5 MG tablet, Take 5 mg by mouth As directed, Disp: , Rfl: pregabalin (Lyrica) 25 MG capsule, Take 1 capsule (25 mg) by mouth in the morning and 1 capsule (25mg) before bedtime., Disp: 60 capsule, Rfl: 2 tiZANidine (Zanaflex) 4 MG tablet, Take 4 mg by mouth every 6 (six) hours if needed., Disp: , Rfl: traMADol (Ultram) 50 MG tablet, Take 50 mg by mouth 3 (three) times a day as needed for moderate pain or severe pain, Disp: , Rfl: triamterene-hydrochlorothiazide (Maxzide-25) 37.5-25 MG tablet, Take 1 tablet by mouth Daily, Disp:, Rfl: Turmeric 500 MG capsule, as directed [...] Insecurity: No Food Insecurity (11/29/2023) Received from [facility], [facility] Hunger Vital Sign Worried About Running Out of Food in the Last Year: Never true Ran Out of Food in the Last Year: Never true Transportation Needs: No Transportation Needs (11/29/2023) Received from [facility], [facility] PRAPARE - Transportation Lack of Transportation (Medical): No Lack of Transportation (Non-Medical): No Physical Activity: Not on file Stress: Not on file Social Connections: Not on file Intimate Partner Violence: Not on file Housing Stability: Low Risk (11/29/2023) Received from [facility], [facility] Housing Stability Vital Sign Unable [...] region with hyperkeratotic lesion to distal digit VASC: Positive palpable pedal pulses bilaterally NEURO: Gross sensation intact to bilateral feet ORTHO: Positive pain on palpation to nails 1 through 10 Left 3rd flexion deformity of toe that is non reducible ASSESSMENT 1. Pain due to onychomycosis of toenails of both feet 2. Acquired deformity of left toe PLAN Debride nails in length and thickness digits 1 through 10 Discussed conservative and surgical treatment options for patient today including postoperative time frame and surgical procedure in detail. Patient may continue with conservative treatments including dlsg-gsa-ytihzfl anti- inflammatories and other treatments suggested today. Patient may want to be s cheduled for surgical intervention in the near future. Discussed left 3rd digit PIPJ arthrodesis with K-wire and postop timeframe in detail me she may consider in the future under local anesthetic Elie Harper DPM documented in this encounterBarnes-Jewish West County [id number] History of Present illness Narrative* Magalie Kaufman, - 10/25/2024 11:30 AM EST Procedure - Therapeutic injection, Botulinum Toxin-Blepharospasm Indication 69-year-old female with significant right blepharospasm and hemifacial spasm. She is getting a great response with the Botox injections. She does have a physiologic right facial droop and can get more pronounced with the Botox injections. She does feel the Botox wear off just prior to the next set of injections and needs repeat injections 4 continue control. Consent The procedure was explained to the patient. Informed consent for the procedure was obtained and risk associated with Botox treatments. Any further questions were answered during this visit. Site Prep The areas to be injected were sterilized with 70% isopropanol. Lot # [id number] Expiration: 01/2027 Dilution Per 100 units diluted with 1mL of 0.9% Sodium Chloride Procedure Right superior Lateral orbicularis oculi 7.5 units Right lateral orbicularis oculi 7.5 units Right inferior lateral orbicularis oculi 7.5 units Right inferior orbicularis oculi medial 2.5 units Right superior medial orbicularis oculi 2.5 units Right merchandise flow team member 2.5 units Right masseter 5+10+5 units Right zygomaticus 5 + 5 +5 units Right temporalis 5 units Right jawline 5 +5 units TOTAL UNITS INJECTED 80 units WASTED 20 units The patient tolerated the procedure well without complications. Disposition The patient tolerated the procedure well. Post-op care was discussed. The patient is aware that duration of action is 3 months, and that delay in reinjection often results in recurrence of symptoms. Patient Care Instructions Do not rub massage or touch injection sites for 24 hours. Discussed signs and symptoms of anaphylaxis and when to seek emergent treatment. Procedure Codes 73845 Chemodenervation of facial muscle J0585 Botulinum toxin a per unit, Units: Follow Up 3 months Botox documented in this encounterBarnes-Jewish West County [id number] Telephone encounter Note* Telephone Encounter - Sheryl Harley MA - 10/24/2024 9:02 AM EST Patient calls stating her lyrica RX was sent in with the incorrect directions. It needs to be 25mg in the morning and 25mg in the evening. RX has been fixed with correct directions. Can you please send. [facility] [id number] Miscellaneous Notes* Telephone Encounter - Sheryl Harley MA - 10/24/2024 9:02 AM EST Patient calls stating her lyrica RX was sent in with the incorrect directions. It needs to be 25mg in the morning and 25mg in the evening. RX has been fixed with correct directions. Can you please send. documented in this encounterBarnes-Jewish West County [id number] History of Present illness Narrative* REGINALD Snider - 10/23/2024 10:30 AM EST Images from the original note were not included. Reason for Appointment: EMG Patient: Danyelle Haskins : 1955 EMG Computer: [employer] Referring Physician: Dr. 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 Hx of cyst removal to bilateral wrists & surgery to right wrist. No hx of DM. Not on blood thinners. Comments: Procedure was explained to the patient who expressed understanding. Patient appeared to have tolerated the test well despite some discomfort due to the nature of the test. documented in this encounterBarnes-Jewish West County [id number] History of Present illness Narrative* Shante Montenegro, - 10/15/2024 2:00 PM EST Images from the original note were not [...] D 500-1000-40 MG-UNT-MCG chewable tablet; Generic drug: Calcium- Vitamin D-Vitamin K diclofenac sodium 1 % gel [...] Relation Name Age of Onset Cancer Mother Ekta Haskins Macular degeneration Mother Ekta Haskins Cancer Father Carmelo Haskins Cancer Sister [...] CN II: Visual acuity is normal. Visual smith full to confrontation. CN III, IV, : [...] wrist extensors , wrist flexor , and treating plant supervisor strength 5/5. LUE strength deltoid , biceps , triceps , wrist extensors , wrist flexor , and treating plant supervisor strength 5/5. RLE strength iliopsoas, quadriceps, tibialis [...] reflex 0. LLE Knee reflex 0. Coordination: Gyrrww-xq-acsh testing normal. Rapid alternating movements are normal. Gait: Steady. Utilizing walker. Review and summary of old records: MRI of the lumbar spine at [facility] on 04/01[facility]21: Posterior decompression and transpedicular fusion L2-S1. Diffuse degenerative changes. L1- L2 severe central canal stenosis of 4.7 mm [...] time. The patient reports right-sided low back pain.She also reports mild lower extremity weakness, but no focal weakness is appreciated on clinical exam. She has paresthesias in the distal bilateral lower extremities, however, these may be secondary to peripheral neuropathy. No other apparent radicular symptoms. Right L4/L5/S1 facet injections on 03/08/23 were highly beneficial (initially with 100% pain reduction and effects lasting > 3 months).The patient remains physically active at home, and [...] or alcohol abuse. Symptoms are tolerable on thecurrent dose of Lyrica. Zonisamide was previously ineffective. [...] in detail. All questions answered. The patient verbalizesunderstanding and is agreeable to the plan. Discussion in layman's terms. Follow up in the office within 1 months; sooner if needed for new or worsening symptoms. documented in this encounterBarnes-Jewish West County [id number] History of Present illness Narrative* Elie Harper DPM - 09/06/2024 2:40 PM EDT Patient: Danyelle Haskins : 1955 PCP: Yulisa [...] Fibromyalgia Hemifacial spasm History of transfusion Hypertension ([facility]) Muscle spasm Osteopenia Peripheral neuropathy Polyneuropathy PVD (peripheral vascular disease) ([facility]) Radiculopathy, lumbosacral region Small fiber neuropathy Spinal [...] 500-1000-40 MG-UNT-MCG chewable tablet, 1 (one) time eachday at the same time., Disp: , Rfl: [...] each day at the same time, Disp: ,Rfl: folic acid (Folvite) 1 MG tablet, Take 1,000 mcg by mouth in the morning., Disp: , Rfl: Hhqjlttymfo-Gzyeojhha-Tug C-Mn (Glucosamine 1500 Complex) capsule, as directed Orally, Disp: , Rfl: hydroxychloroquine (Plaquenil) 200 MG tablet, Take 200 mg by mouth in the morning and 200 mg beforebedtime., Disp: , Rfl: ibandronate (Boniva) 150 MG [...] mouth in the morning and 1 capsule (25mg) before bedtime., Disp: 60 capsule, Rfl: 2 tiZANidine (Zanaflex) 4 MG tablet, Take 4 mg by mouth every 6 (six) hours if needed., Disp: , Rfl: traMADol (Ultram) 50 MG tablet, Take 50 mg by mouth 3 (three) times a day as needed for moderate pain or severe pain, Disp: , Rfl: triamterene-hydrochlorothiazide (Maxzide-25) 37.5-25 MG tablet, Take 1 tablet by mouth Daily, Disp:, Rfl: Turmeric 500 MG capsule, as directed [...] Insecurity: No Food Insecurity (11/29/2023) Received from [facility], [facility] Hunger Vital Sign Worried About Running Out of Food in the Last Year: Never true Ran Out of Food in the Last Year: Never true Transportation Needs: No Transportation Needs (11/29/2023) Received from [facility], [facility] PRAPARE - Transportation Lack of Transportation (Medical): No Lack of Transportation (Non-Medical): No Physical Activity: Not on file Stress: Not on file Social Connections: Not on file Intimate Partner Violence: Not on file Housing Stability: Low Risk (11/29/2023) Received from [facility], [facility] Housing Stability Vital Sign Unable [...] 10 Elie Harper DPM documented in this encounterBarnes-Jewish West County [id number] History of Present illness Narrative* Elie Harper DPM - 08/16/2024 11:40 AM EDT Patient: Danyelle Haskins : 1955 PCP: Yulisa [...] discussion of possible surgical intervention by her museum informatics specialist who has since retired. She states diminished [...] Fibromyalgia Hemifacial spasm History of transfusion Hypertension ([facility]) Muscle spasm Osteopenia Peripheral neuropathy Polyneuropathy PVD (peripheral vascular disease) ([facility]) Radiculopathy, lumbosacral region Small fiber neuropathy Spinal stenosis excluding cervical region lumbar region, without neurogenic claudication Spondylolisthesis Trigeminal neuralgia ([facility]) Medications: Current Outpatient Medications: acetaminophen (Tylenol 8 [...] 500-1000-40 MG-UNT-MCG chewable tablet, 1 (one) time eachday at the same time., Disp: , Rfl: carvedilol (Coreg) 25 MG tablet, Take 25 mg by mouth in the morning and 25 mg in the evening. Take with meals., Disp: , Rfl: clindamycin (Cleocin) 300 MG capsule, Take 1 capsule (300 mg) by mouth in the morning and 1 capsule(300 mg) in the evening and 1 capsule (300 mg) before bedtime. Do all this for 10 days., Disp: 30 capsule, Rfl: 0 diclofenac sodium 1 % gel, External for 19 Days, Disp: , Rfl: doxazosin (Cardura) 4 MG tablet, Take 4 mg by mouth 1 (one) time each day at the same time, Disp: ,Rfl: folic acid (Folvite) 1 MG tablet, Take 1,000 mcg by mouth in the morning., Disp: , Rfl: Povcdromttt-Qcycpebiz-Fnd C-Mn (Glucosamine 1500 Complex) capsule, as directed Orally, Disp: , Rfl: hydroxychloroquine (Plaquenil) 200 MG tablet, Take 200 mg by mouth in the morning and 200 mg beforebedtime., Disp: , Rfl: ibandronate (Boniva) 150 MG [...] mouth in the morning and 1 capsule (25mg) before bedtime., Disp: 60 capsule, Rfl: 2 tiZANidine (Zanaflex) 4 MG tablet, Take 4 mg by mouth every 6 (six) hours if needed., Disp: , Rfl: traMADol (Ultram) 50 MG tablet, Take 50 mg by mouth 3 (three) times a day as needed for moderate pain or severe pain, Disp: , Rfl: triamterene-hydrochlorothiazide (Maxzide-25) 37.5-25 MG tablet, Take 1 tablet by mouth Daily, Disp:, Rfl: Turmeric 500 MG capsule, as directed [...] Insecurity: No Food Insecurity (11/29/2023) Received [facility], [facility] Hunger Vital Sign Worried About Running Out of Food in the Last Year: Never true Ran Out of Food in the Last Year: Never true Transportation Needs: No Transportation Needs (11/29/2023) Received from [facility], [facility] PRAPARE - Transportation Lack of Transportation (Medical): No Lack of Transportation (Non-Medical): No Physical Activity: Not on file Stress: Not on file Social Connections: Not on file Intimate Partner Violence: Not on file Housing Stability: Low Risk (11/29/2023) Received from [facility], [facility] Housing Stability Vital Sign Unable to Pay [...] abx. Elie Harper DPM documented in this encounterBarnes-Jewish West County [id number] History of Present illness Narrative* Elie Harper DPM - 08/02/2024 10:30 AM EDT Patient: Danyelle Haskins : 1955 PCP: Yulisa Batres MD SUBJECTIVE Patient presents today 14 days postop medial right hallux partial temporary nail avulsion with I&D Patient denies nausea fever vomiting chills and has been taking oral antibiotics and states watery drainage from the right hallux Patient states he has been taking antibiotics but still has watery drainage from the area and slight redness around the entire digit at this time has concerns of possible continued ingrowing nail andinfection Patient also complains of pain to the left 3rd digit due to hammertoe type deformity and has been seen in the past with discussion of possible surgical intervention by her museum informatics specialist who has since retired. She states diminished callus to the end of the toe and states that she rates pain a 2 /10. Patient was to have a total knee replacement and has had revisional surgery for knee Allergies: Allergies Allergen Reactions Gabapentin (Once-Daily) Other [...] Peripheral neuropathy Polyneuropathy PVD (peripheral vascular disease) ([facility]) Radiculopathy, lumbosacral region Small fiber neuropathy Spinal stenosis excluding cervical region lumbar region, without neurogenic claudication Spondylolisthesis Trigeminal neuralgia ([facility]) Medications: Current Outpatient Medications: acetaminophen (Tylenol 8 Hour) 650 MG ER tablet, Take 1-2 tablets by mouth 2 (two) times a day as needed for mild pain or moderate pain Do not crush, chew, or split., Disp: , Rfl: Alpha Lipoic Acid 200 MG capsule, 1 capsule., Disp: , Rfl: amoxicillin (Amoxil) 500 MG [...] 500-1000-40 MG-UNT-MCG chewable tablet, 1 (one) time eachday at the same time., Disp: , Rfl: carvedilol (Coreg) 12.5 MG tablet, Take 25 mg by mouth every 12 (twelve) hours, Disp: , Rfl: diclofenac sodium 1 % gel, External for 19 Days, Disp: , Rfl: doxazosin (Cardura) 4 MG tablet, Take 4 mg by mouth 1 (one) time each day at the same time, Disp: ,Rfl: folic acid (Folvite) 1 MG tablet, Take 1,000 mcg by mouth in the morning., Disp: , Rfl: Zbtdiasssgc-Sourflili-Qrt C-Mn (Glucosamine 1500 Complex) capsule, as directed Orally, Disp: , Rfl: hydroxychloroquine (Plaquenil) 200 MG tablet, Take 200 mg by mouth in the morning and 200 mg beforebedtime., Disp: , Rfl: ibandronate (Boniva) 150 MG [...] mouth in the morning and 1 capsule (25mg) before bedtime., Disp: 60 capsule, Rfl: 2 tiZANidine (Zanaflex) 4 MG tablet, Take 4 mg by mouth every 6 (six) hours if needed., Disp: , Rfl: traMADol (Ultram) 50 MG tablet, Take 50 mg by mouth 3 (three) times a day as needed for moderate pain or severe pain, Disp: , Rfl: triamterene-hydrochlorothiazide (Maxzide-25) 37.5-25 MG tablet, Take 1 tablet by mouth Daily, Disp:, Rfl: Turmeric 500 MG capsule, as directed [...] Insecurity: No Food Insecurity (11/29/2023) Received from [facility], [facility] Hunger Vital Sign Worried About Running Out of Food in the Last Year: Never true Ran Out of Food in the Last Year: Never true Transportation Needs: No Transportation Needs (11/29/2023) Received from [facility], [facility] PRAPARE - Transportation Lack of Transportation (Medical): No Lack of Transportation (Non-Medical): No Physical Activity: Not on file Stress: Not on file Social Connections: Not on file Intimate Partner Violence: Not on file Housing Stability: Low Risk (11/29/2023) Received from [facility], [facility] Housing Stability Vital Sign Unable to Pay for Housing in the Last Year: No Number of Places Lived in the Last Year: 1 Unstable Housing in the Last Year: No ROS: GI: denies loose or watery stool on antibiotic Musculoskeletal: Positive generalized arthritis to joints and denies loss of strength. Positive history of total knee replacement and back surgery in the past Cardiovascular: denies CP, palpitations, irregular rhythms OBJECTIVE LE EXAM: DERM: Elongated thick yellow crumbly nails digits 1 through 10. Diminished hair growth b/l feet. Rubor noted to the left 3rd digit PIPJ region with hyperkeratotic lesion to distal digit Medial right hallux has some serous drainage with slight erythema that extends now to the nail bed region as well as to the lateral right hallux VASC: Positive palpable pedal pulses bilaterally NEURO: Gross sensation intact to bilateral feet ORTHO: Positive pain on palpation to nails 1 through 10 Left 3rd flexion deformity of toe that is non reducible Positive pain on palpation to the right hallux ASSESSMENT 1. Onychocryptosis 2. Toe pain, right 3. Abscess of toe, right 4. Acquired deformity of left toe PLAN Patient to continue with oral anti - inflammatories as needed for pain and recommended OTC medications such as tylenol or Ibuprofen Patient placed on new antibiotics of clindamycin and also is apply Betadine daily with dry sterile dressing postprocedure Performed I and D of abcess with total removal of nail to access infection to the right toenail. Pt informed of risks and benefits of procedure including infection,pain,bleeding, reoccurance. Pt consents. Next, 3cc of xylocaine 2% plain injected into affected digit for anesthesia. The affected toe was prepped and draped in usual sterile manner and offending nail was removed withminimal blood loss and positive serosanguinous drainage noted. Wound then was flushed with NSS and DSD applied to digit. Pt is to have a prescription for an antibiotic. Elie Harper DPM documented in this encounterBarnes-Jewish West County [id number] NoteRight Eye Quality was good. Scan locations included subfoveal. Progression has been stable. Findings include normal observations. Left Eye Quality was good. Scan locations included subfoveal. Progression has been stable. Findings include normal observations. Notes Good scan with normal appearanceBarnes-Jewish West County [id number] NoteRight Eye Reliability was good. Progression has been stable. Foveal threshold was normal. Findings include normal observations. Left Eye Reliability was good. Progression has been stable. Foveal threshold was normal. Findings include normal observations.[facility] [id number] History of Present illness Narrative* Ramon Barreto, - 07/31/2024 9:45 AM EDT Images from the original note were not included. Assessment/Plan Diagnoses and all orders for this visit: Long-term use of hydroxychloroquine - A complete ophthalmic exam was performed including spectral-domain optical coherence tomography (SD-OCT) and Watson visual field (10-2). All were found to be within normal limits with no macular toxicity found. Continue with annual visits performing the above evaluations. This will be adjusted to [id number] when deemed necessary due to macular risk [...] laser capsulotomy, they are to notify their cyber instructor promptly if they have a significant change in symptoms, such as flashes of light (photopsia), an increase in floaters, loss of visual field or decrease in visual acuity. Blepharitis of upper and lower eyelids of both eyes, unspecified type - Blepharitis, posterior type OU - The patient exhibits inspissated meibomian glands. Warm compresses, lid massage and lid scrubs were recommended. documented in this encounterBarnes-Jewish West County HospitalSxuengfljf44-60-3441 Telephone encounter Note* Telephone Encounter - Elie Harper DPM - 07/30/2024 1:12 PM EDT done [facility] [id number] Miscellaneous Notes* Telephone Encounter - Elie Harper DPM - 07/30/2024 1:12 PM EDT done * Telephone Encounter - Taylor Ferro - 07/30/2024 1:03 PM EDT Pt called stating her ingrown toenail is still infected, asking if she can get another antibiotic? Send to [facility] in [place] please She is scheduled this in [place] documented in this encounterBarnes-Jewish West County HospitalQvcobyrmbt44-63-5052 Telephone encounter Note* Telephone Encounter - Taylor Ferro - 07/30/2024 1:03 PM EDT Pt called stating her ingrown toenail is still infected, asking if she can get another antibiotic? Send to [facility] in [place] please She is scheduled this in [place] [facility] HospitalCwohswnhqb08-25-4461 History of Present illness Narrative* Magalie Kaufman DO - 07/26/2024 12:30 PM EDT Procedure - Therapeutic injection, Botulinum Toxin-Blepharospasm Indication 69-year-old female with significant right blepharospasm and hemifacial spasm. This does respond to Botox injections. She gets good control. She still has some twitching around her mouth however we are trying to avoid facial droop in that area. It does wear off just prior to the next set of injections and she needs repeat injections every 3 months in order to control this. She will have repeat injections today to control the spasms. Consent The procedure was explained to the patient. Informed consent for the procedure was obtained and risk associated with Botox treatments. Any further questions were answered during this visit. Site Prep The areas to be injected were sterilized with 70% isopropanol. Lot # [id number] Expiration:08/2026 Dilution Per 100 units diluted with 1mL of 0.9% Sodium Chloride Procedure Right superior Lateral orbicularis oculi 7.5 units Right lateral orbicularis oculi 7.5 units Right inferior lateral orbicularis oculi 7.5 units Right inferior orbicularis oculi medial 2.5 units Right superior medial orbicularis oculi 2.5 units Right merchandise flow team member 2.5 units Right masseter 5+10+5 units Right zygomaticus 5 + 5 +5 units Right temporalis 5 units Right jawline 5 +5 units TOTAL UNITS INJECTED 80 units WASTED 20 units The patient tolerated the procedure well without complications. Disposition The patient tolerated the procedure well. Post-op care was discussed. The patient is aware that duration of action is 3 months, and that delay in reinjection often results in recurrence of symptoms. Patient Care Instructions Do not rub massage or touch injection sites for 24 hours. Discussed signs and symptoms of anaphylaxis and when to seek emergent treatment. Procedure Codes 36242 Chemodenervation of facial muscle [id number] Botulinum toxin a per unit, Units: Follow Up 3 months Botox documented in this encounterBarnes-Jewish West County [id number] History of Present illness Narrative* Elie Harper DPM - 07/18/2024 3:00 PM EDT Patient: Danyelle Haskins : 1955 PCP: Yulisa Batres MD SUBJECTIVE Patient presents today with a CC of ingrowing right toenail Pt states problem has been present for the past few weeks. Pt has noticed positive drainage to the affected area and states pain is achey in nature. Treatments have consisted of soaking and trying to remove the ingrown nail on their own with no relief. Patient also complains of pain to the left 3rd digit due to hammertoe type deformity and has been seen in the past with discussion of possible surgical intervention by her museum informatics specialist who has since retired. She states diminished callus to the end of the toe and states that she rates pain a 2/10. Patient was to have a total knee replacement and has had revisional surgery for knee Allergies: Allergies Allergen Reactions Gabapentin (Once-Daily) Other [...] Fibromyalgia Hemifacial spasm History of transfusion Hypertension ([facility]/HCC) Muscle spasm Osteopenia Peripheral neuropathy Polyneuropathy PVD (peripheral vascular disease) (CMS/[facility]) Radiculopathy, lumbosacral region Small fiber neuropathy Spinal stenosis excluding cervical region lumbar region, without neurogenic claudication Spondylolisthesis Trigeminal neuralgia (CMS/[facility]) Medications: Current Outpatient Medications: acetaminophen (Tylenol 8 Hour) 650 MG ER tablet, Take 650 mg by mouth in the morning and 650 mg before bedtime. Do not crush, chew, or split.., Disp: , Rfl: Alpha Lipoic Acid 200 MG capsule, 1 capsule., Disp: , Rfl: amoxicillin (Amoxil) 500 MG [...] 500-1000-40 MG-UNT-MCG chewable tablet, 1 (one) time eachday at the same time., Disp: , Rfl: carvedilol (Coreg) 12.5 MG tablet, Take 25 mg by mouth every 12 (twelve) hours, Disp: , Rfl: diclofenac sodium 1 % gel, External for 19 Days, Disp: , Rfl: doxazosin (Cardura) 4 MG tablet, 1 (one) time each day at the same time., Disp: , Rfl: folic acid (Folvite) 1 MG tablet, Take 1,000 mcg by mouth in the morning., Disp: , Rfl: Yesnpxwfwpm-Ecujjureo-Sbv C-Mn (Glucosamine 1500 Complex) capsule, as directed Orally, Disp: , Rfl: hydroxychloroquine (Plaquenil) 200 MG tablet, , Disp: , Rfl: ibandronate (Boniva) 150 MG tablet, , Disp: , Rfl: leflunomide (Arava) 20 MG tablet, , Disp: , Rfl: lisinopril 40 MG tablet, Take 40 mg by mouth in the morning., Disp: , Rfl: methotrexate 2.5 MG tablet, , Disp: , Rfl: methylPREDNISolone (Medrol Dospak) 4 MG tablets, TAKE DIRECTED, Disp: , Rfl: pantoprazole (ProtoNix) 40 MG EC tablet, , Disp: , Rfl: predniSONE (Deltasone) 5 MG tablet, Take 5 mg by mouth., Disp: , Rfl: pregabalin (Lyrica) 25 MG capsule, TAKE 1 CAPSULE BY MOUTH IN THE MORNING AND 1 CAPSULE IN THE EVENING FOR 30 DAYS, Disp: , Rfl: tiZANidine (Zanaflex) 4 MG tablet, Take 4 mg by mouth every 6 (six) hours if needed., Disp: , Rfl: traMADol (Ultram) 50 MG tablet, , Disp: , Rfl: triamterene-hydrochlorothiazide (Maxzide-25) 37.5-25 MG tablet, , Disp: , Rfl: Turmeric 500 MG capsule, [...] Insecurity: No Food Insecurity (11/29/2023) Received [facility], [facility] Hunger Vital Sign Worried About Running Out of Food in the Last Year: Never true Ran Out of Food in the Last Year: Never true Transportation Needs: No Transportation Needs (11/29/2023) Received from [facility], [facility] PRAPARE - Transportation Lack of Transportation (Medical): No Lack of Transportation (Non-Medical): No Physical Activity: Not on file Stress: Not on file Social Connections: Not on file Intimate Partner Violence: Not on file Housing Stability: Low Risk (11/29/2023) Received from [facility], [facility] Housing Stability Vital Sign Unable to Pay for Housing in the Last Year: No Number of Places Lived in the Last Year: 1 Unstable Housing in the Last Year: No ROS: Gastrointestinal: denies abdominal pain, ulcers, or changes in appetite or bowel habits Musculoskeletal: Positive generalized arthritis to joints and denies loss of strength. Positive history of total knee replacement and back surgery in the past Cardiovascular: denies CP, palpitations, irregular rhythms OBJECTIVE LE EXAM: DERM: Elongated thick yellow crumbly nails digits 1 through 10. Diminished hair growth b/l feet. Rubor noted to the left 3rd digit PIPJ region with hyperkeratotic lesion to distal digit Medial right hallux has some slight serous sanguinous drainage with positive erythema VASC: Positive palpable pedal pulses bilaterally NEURO: Gross sensation intact to bilateral feet ORTHO: Positive pain on palpation to nails 1 through 10 Left 3rd flexion deformity of toe that is non reducible positive pain on palpation to medial right hallux ASSESSMENT 1. Onychocryptosis 2. Toe pain, right 3. Abscess of toe, right PLAN Patient to continue with oral anti - inflammatories as needed for pain and recommended OTC medications such as tylenol or Ibuprofen Discussed possible treatment options including a permanent nail avulsion and patient may consider in the future. Performed I and D of abcess with partial removal of nail to access infection to the right toenail. Pt informed of risks and benefits of procedure including infection,pain,bleeding, reoccurance. Pt consents. Next, 3cc of xylocaine 2% plain injected into affected digit for anesthesia. The affected toe was prepped and draped in usual sterile manner and offending nail was removed withminimal blood loss and positive serosanguinous drainage noted. Wound then was flushed with NSS and DSD applied to digit. Pt is to have a prescription for an antibiotic. Patient also takes 2 g of amoxicillin for prophylaxis for knee and states that she has taken today Elie Harper DPM documented in this encounterBarnes-Jewish West County [id number] History of Present illness Narrative* Gaby Christianson NP - 07/16/2024 1:00 PM EDT Images from the original note were [...] rest and non weightbearing. She resided at [facility] from 12/02/2023 to 06/06/2024 for postoperative care and physical therapy. She is now in outpatient physical therapy. She reports being less active since the knee surgery and reports mildlower extremity weakness. The patient has right-sided low [...] through 4th digits on the left hand, butthese have significantly improved. She denies neck pain [...] D 500-1000-40 MG-UNT-MCG chewable tablet; Generic drug: Calcium- Vitamin D-Vitamin K diclofenac sodium 1 % gel [...] Fibromyalgia Hemifacial spasm History of transfusion Hypertension (CMS/[facility]) Muscle spasm Osteopenia Peripheral neuropathy Polyneuropathy PVD (peripheral vascular disease) (CMS/[facility]) Radiculopathy, lumbosacral region Small fiber neuropathy Spinal [...] Relation Name Age of Onset Cancer Mother Ekta Haskins Macular degeneration Mother Ekta Haskins Cancer Father Carmelo Haskins Cancer Sister [...] CN II: Visual acuity is normal. Visual smith full to confrontation. CN III, IV, : [...] wrist extensors , wrist flexor , and treating plant supervisor strength 5/5. LUE strength deltoid , biceps , triceps , wrist extensors , wrist flexor , and treating plant supervisor strength 5/5. RLE strength iliopsoas, quadriceps, tibialis [...] reflex 0. LLE Knee reflex 0. Coordination: Mexnfc-ys-ohps testing normal. Rapid alternating movements are normal. Gait: Steady. Utilizing walker. Review and summary of old records: MRI of the lumbar spine at the [facility] on 04/01/21: Posterior decompression and transpedicular fusion L2-S1. Diffuse degenerative changes. L1- L2 severe central canal stenosis of 4.7 mm [...] time. The patient reports right-sided low back pain.She also reports mild lower extremity weakness, but no focal weakness is appreciated on clinical exam. She has paresthesias in the distal bilateral lower extremities, however, these may be secondary to peripheral neuropathy. No other apparent radicular symptoms. Right L4/L5/S1 facet injections on 03/08/23 were highly beneficial (initially with 100% pain reduction and effects lasting > 3 months).The patient remains physically active at home, and [...] or alcohol abuse. Symptoms are tolerable on thecurrent dose of Lyrica. Zonisamide was previously ineffective. [...] in detail. All questions answered. The patient verbalizesunderstanding and is agreeable to the plan. Discussion in layman's terms. Follow up in the office within 3 months; sooner if needed for new or worsening symptoms. Gaby Christianson NP [facility] documented in this encounterBarnes-Jewish West County [id number] History of Present illness Narrative* Elie Caraballo Meredith, DPM - 06/28/2024 2:00 PM EDT Patient: Danyelle Haskins : 1955 PCP: Yulisa Batres MD SUBJECTIVE This is a 68 y.o. female that presents today with a CC of elongated, thick nails. Pt states nails have been elongated and thick for many years and cause pain with ambulation in shoegear. Pt has tried previous treatment with minimal relief. Pt presents today for nail care and treatment. Patient also complains of pain to the left 3rd digit due to hammertoe type deformity and has been seen in the past with discussion of possible surgical intervention by her museum informatics specialist who has since retired. She states diminished callus to the end of the toe and states that she rates pain a 2/10. Patient was to have a total knee replacement and has had revisional surgery for knee Allergies: Allergies Allergen Reactions Gabapentin (Once-Daily) Other [...] History: Diagnosis Date Arthritis Backache Blepharospasm Cataract Degenerative disc disease, lumbar Disturbance of skin sensation Dizziness Dry eyes Facet arthritis of lumbar region Facial weakness Fibromyalgia Hemifacial spasm History of transfusion Hypertension (CMS/HCC) Muscle spasm Osteopenia Peripheral neuropathy Polyneuropathy PVD (peripheral vascular disease) ([facility]) Radiculopathy, lumbosacral region Small fiber neuropathy Spinal stenosis excluding cervical region lumbar region, without neurogenic claudication Spondylolisthesis Trigeminal neuralgia (CMS/HCC) Medications: Current Outpatient Medications: acetaminophen (Tylenol 8 Hour) 650 MG ER tablet, Take 650 mg by mouth in the morning and 650 mg before bedtime. Do not crush, chew, or split.., Disp: , Rfl: Alpha Lipoic Acid 200 MG capsule, 1 capsule., Disp: , Rfl: amoxicillin (Amoxil) 500 MG [...] 500-1000-40 MG-UNT-MCG chewable tablet, 1 (one) time eachday at the same time., Disp: , Rfl: carvedilol (Coreg) 12.5 MG tablet, every 12 (twelve) hours., Disp: , Rfl: diclofenac sodium 1 % gel, External for 19 Days, Disp: , Rfl: doxazosin (Cardura) 4 MG tablet, 1 (one) time each day at the same time., Disp: , Rfl: folic acid (Folvite) 1 MG tablet, Take 1,000 mcg by mouth in the morning., Disp: , Rfl: Cinaxfvcfwp-Odorwxoim-Cgu C-Mn (Glucosamine 1500 Complex) capsule, as directed Orally, Disp: , Rfl: hydroxychloroquine (Plaquenil) 200 MG tablet, , Disp: , Rfl: ibandronate (Boniva) 150 MG tablet, , Disp: , Rfl: leflunomide (Arava) 20 MG tablet, , Disp: , Rfl: lisinopril 40 MG tablet, Take 40 mg by mouth in the morning., Disp: , Rfl: methotrexate 2.5 MG tablet, , Disp: , Rfl: methylPREDNISolone (Medrol Dospak) 4 MG tablets, TAKE DIRECTED, Disp: , Rfl: pantoprazole (ProtoNix) 40 MG EC tablet, , Disp: , Rfl: predniSONE (Deltasone) 5 MG tablet, Take 5 mg by mouth., Disp: , Rfl: pregabalin (Lyrica) 25 MG capsule, TAKE 1 CAPSULE BY MOUTH IN THE MORNING AND 1 CAPSULE IN THE EVENING FOR 30 DAYS, Disp: , Rfl: tiZANidine (Zanaflex) 4 MG tablet, Take 4 mg by mouth every 6 (six) hours if needed., Disp: , Rfl: traMADol (Ultram) 50 MG tablet, , Disp: , Rfl: triamterene-hydrochlorothiazide (Maxzide-25) 37.5-25 MG tablet, , Disp: , Rfl: Turmeric 500 MG capsule, [...] Insecurity: No Food Insecurity (11/29/2023) Received from [facility], [facility] Hunger Vital Sign Worried About Running Out of Food in the Last Year: Never true Ran Out of Food in the Last Year: Never true Transportation Needs: No Transportation Needs (11/29/2023) Received from [facility], [facility] PRAPARE - Transportation Lack of Transportation (Medical): No Lack of Transportation (Non-Medical): No Physical Activity: Not on file Stress: Not on file Social Connections: Not on file Intimate Partner Violence: Not on file Housing Stability: Low Risk (11/29/2023) Received from [facility], [facility] Housing Stability Vital Sign Unable to Pay for Housing in the Last Year: No Number of Places Lived in the Last Year: 1 Unstable Housing in the Last Year: No ROS: Gastrointestinal: denies abdominal pain, ulcers, or changes in appetite or bowel habits Musculoskeletal: Positive generalized arthritis to joints and denies loss of strength. Positive history of total knee replacement and back surgery in the past Cardiovascular: denies CP, palpitations, irregular rhythms OBJECTIVE LE EXAM: DERM: Elongated thick yellow crumbly nails digits 1 through 10. Diminished hair growth b/l feet. Rubor noted to the left 3rd digit PIPJ region with hyperkeratotic lesion to distal digit VASC: Positive palpable pedal pulses bilaterally NEURO: Gross sensation intact to bilateral feet ORTHO: Positive pain on palpation to nails 1 through 10 Left 3rd flexion deformity of toe that is non reducible ASSESSMENT 1. Acquired deformity of left toe 2. Onychomycosis 3. Toe pain, bilateral PLAN Discussed proper foot care with patient today. Debride nails in length and thickness digits 1 through 10 Did discuss briefly possible surgical correction if symptoms worsen otherwise return to clinic for nail care in the future Elie Harper DPM documented in this encounterBarnes-Jewish West County [id number] History of Present illness Narrative* Ashok Garcia, [facility] - 05/31/2024 9:30 AM EDT Ortho Nurse - Established Patient Intake Room#: [...] noticing left knee valgus when walking, she isalso stating that the left foot is swelling quite a bit. When taking a step with left foot she willintermittenly joshua or just notice that her foot rests in that posotion while sitting. Patient reports both knees giving out or instability, frequently. It can happen when walking or sitting down. Date: 05/31/2024 9:39 AM Patient: Danyelle Haskins MR#: [id number] : 1955 Age: 68 y.o. Referring Physician: [...] CATARACT W/ IMPLANT (ECCE IOL) Bilateral 2018 [facility] TREATMENT OPEN PATELLAR FX W/ INTERNAL FIXATION [...] times daily October 01, 2020 10:38am 10-01-2020 [facility] ([id number]) Docusate 100 MG capsule Take 1 capsule by mouth 2 times daily. 60 capsule 0 Doxazosin 4 MG tablet Take 1 tablet by mouth daily. Folic acid 1 MG tablet Take 1 tablet by mouth daily. Tgxfazlcjvq-Gqjwqmobh-Wki C-Mn (Glucosamine 1500 Complex) capsule Take by [...] times daily October 01, 2020 10:38am 10-01-2020 [facility] ([id number]), Disp: , Rfl: Docusate 100 MG capsule, Take 1 capsule by mouth 2 times daily., Disp: 60 capsule, Rfl: 0 Doxazosin 4 MG tablet, Take 1 tablet by mouth daily., Disp: , Rfl: Folic acid 1 MG tablet, Take 1 tablet by mouth daily., Disp: , Rfl: Aoiynjazsix-Szqvakxrc-Xef C-Mn (Glucosamine 1500 Complex) capsule, Take by [...] by mouth at bedtime., Disp: 30 tablet, Rfl:0 tiZANidine 4 MG tablet, Take 1 tablet by mouth every 6 hours as needed for Muscle spasms., Disp: , Rfl: traMADol 50 MG tablet, Take 1 tablet by mouth 3 times daily as needed for Pain., Disp: , Rfl: triamterene-hydrochlorothiazide 37.5-25 MG Cap, Take 1 capsule by mouth as needed (edema)., Disp: ,Rfl: TURMERIC PO, as directed Orally, Disp: , Rfl: Allergies: She is allergic to ciprofloxacin, gralise [gabapentin (once-daily)], alendronate, gabapentin, oxcarbazepine, bactrim [sulfamethoxazole-trimethoprim], levofloxacin, sulfamethoxazole, and trimethoprim. * New Mcclure MD - 05/31/2024 9:30 AM EDT HPI: Danyelle is an established patient of mine. She is here today for a 6 week follow up. She is now about 26 weeks out from left knee extensor mechanism reconstruction with mesh and about 20 weeks out from right knee periprosthetic patellar fracture. Denies pain and feels she is progressing nicely overall. Her pain is a 3 on a 10 point painscale today. PHYSICAL EXAM: The bilateral lower extremities [...] and alignment as well as right knee arthroplastyin place with evidence of periprosthetic displaced patella [...] Veterans Pain Rating Scale) (Adult- Cognitively Intact) Factors That Aggravate Pain: activity Recent [...] CATARACT W/ IMPLANT (ECCE IOL) Bilateral 2018 [facility] TREATMENT OPEN PATELLAR FX W/ INTERNAL FIXATION [...] times daily October 01, 2020 10:38am 10-01-2020 [facility] ([id number]), Disp: , Rfl: Docusate 100 MG capsule, Take 1 capsule by mouth 2 times daily., Disp: 60 capsule, Rfl: 0 Doxazosin 4 MG tablet, Take 1 tablet by mouth daily., Disp: , Rfl: Folic acid 1 MG tablet, Take 1 tablet by mouth daily., Disp: , Rfl: Cuvsziefhti-Qtlchcayh-Kro C-Mn (Glucosamine 1500 Complex) capsule, Take by [...] by mouth at bedtime., Disp: 30 tablet, Rfl:0 tiZANidine 4 MG tablet, Take 1 tablet by mouth every 6 hours as needed for Muscle spasms., Disp: , Rfl: traMADol 50 MG tablet, Take 1 tablet by mouth 3 times daily as needed for Pain., Disp: , Rfl: triamterene-hydrochlorothiazide 37.5-25 MG Cap, Take 1 capsule by mouth as needed (edema)., Disp: ,Rfl: TURMERIC PO, as directed Orally, Disp: , [...] Sulfamethoxazole Weakness Trimethoprim Weakness documented in this encounterParkview [facility] History of Present illness Narrative* Dory Coleman - 04/19/2024 10:00 AM EDT Ortho Nurse - Established Patient Intake Room#: 2 Pt is here for B/L knee. Pt is not in any pain. No falls, or injury's. Date: 04/19/2024 10:14 AM Patient: Danyelle Hasknis MR#: [id number] : 1955 Age: 68 y.o. Referring Physician: [...] CATARACT W/ IMPLANT (ECCE IOL) Bilateral 2018 [facility] TREATMENT OPEN PATELLAR FX W/ INTERNAL FIXATION [...] times daily October 01, 2020 10:38am 10-01-2020 [facility] ([id number]) Docusate 100 MG capsule Take 1 capsule by mouth 2 times daily. 60 capsule 0 Doxazosin 4 MG tablet Take 1 tablet by mouth daily. Folic acid 1 MG tablet Take 1 tablet by mouth daily. Eqsjkzlergd-Vsezllpix-Sci C-Mn (Glucosamine 1500 Complex) capsule Take by [...] times daily October 01, 2020 10:38am 10-01-2020 [facility] ([id number]), Disp: , Rfl: Docusate 100 MG capsule, Take 1 capsule by mouth 2 times daily., Disp: 60 capsule, Rfl: 0 Doxazosin 4 MG tablet, Take 1 tablet by mouth daily., Disp: , Rfl: Folic acid 1 MG tablet, Take 1 tablet by mouth daily., Disp: , Rfl: Hvsaaduzpav-Jroxsrouh-Rjh C-Mn (Glucosamine 1500 Complex) capsule, Take by [...] by mouth at bedtime., Disp: 30 tablet, Rfl:0 tiZANidine 4 MG tablet, Take 1 tablet by mouth every 6 hours as needed for Muscle spasms., Disp: , Rfl: traMADol 50 MG tablet, Take 1 tablet by mouth 3 times daily as needed for Pain., Disp: , Rfl: triamterene-hydrochlorothiazide 37.5-25 MG Cap, Take 1 capsule by mouth as needed (edema)., Disp: ,Rfl: TURMERIC PO, as directed Orally, Disp: , [...] oxcarbazepine, bactrim [sulfamethoxazole-trimethoprim], levofloxacin, sulfamethoxazole, and trimethoprim. * New Mcclure MD - 04/19/2024 10:00 AM EDT HPI: Danyelle is an established patient of [facility]. She is here today for followup. She [...] come out of TROM brace, start WBAT andcontinue working with physical therapist. The use of bracing at this time is only for prevention ofaccidents and injuries. Encouraged slow and steady advancement [...] CATARACT W/ IMPLANT (ECCE IOL) Bilateral 2017 [facility] TREATMENT OPEN PATELLAR FX W/ INTERNAL FIXATION [...] times daily October 01, 2020 10:38am 10-01-2020 [facility] ([id number]), Disp: , Rfl: Docusate 100 MG capsule, Take 1 capsule by mouth 2 times daily., Disp: 60 capsule, Rfl: 0 Doxazosin 4 MG tablet, Take 1 tablet by mouth daily., Disp: , Rfl: Folic acid 1 MG tablet, Take 1 tablet by mouth daily., Disp: , Rfl: Uxuxopfmlle-Sehvlsdvv-Qzc C-Mn (Glucosamine 1500 Complex) capsule, Take by [...] by mouth at bedtime., Disp: 30 tablet, Rfl:0 tiZANidine 4 MG tablet, Take 1 tablet by mouth every 6 hours as needed for Muscle spasms., Disp: , Rfl: traMADol 50 MG tablet, Take 1 tablet by mouth 3 times daily as needed for Pain., Disp: , Rfl: triamterene-hydrochlorothiazide 37.5-25 MG Cap, Take 1 capsule by mouth as needed (edema)., Disp: ,Rfl: TURMERIC PO, as directed Orally, Disp: , [...] Sulfamethoxazole Weakness Trimethoprim Weakness documented in this encounterPark[facility] History of Present illness Narrative* Dania Ledezmaclair - 03/22/2024 3:30 PM EDT Ortho Nurse - Established Patient Intake Room#: [...] 03/22/2024 3:49 PM Patient: Danyelle Haskins MR#: [id number] : 1955 Age: 68 y.o. Referring Physician: [...] CATARACT W/ IMPLANT (ECCE IOL) Bilateral 2018 [facility] TREATMENT OPEN PATELLAR FX W/ INTERNAL FIXATION [...] times daily October 01, 2020 10:38am 10-01-2020 [facility] ([id number]) Docusate 100 MG capsule Take 1 capsule by mouth 2 times daily. 60 capsule 0 Doxazosin 4 MG tablet Take 1 tablet by mouth daily. Folic acid 1 MG tablet Take 1 tablet by mouth daily. Kfpvlxhrrlw-Zgyqewnbr-Nhd C-Mn (Glucosamine 1500 Complex) capsule Take by [...] alendronate, gabapentin, oxcarbazepine, bactrim [sulfamethoxazole-trimethoprim], and levofloxacin. * New Mcclure MD - 03/22/2024 3:30 PM EDT HPI: Danyelle is an established patient of [facility]. She is here today for followup. She [...] extension for another 2 weeks. In two w eeks, will open the brace up from 0-40 for 2 weeks and then start advancing 10 degrees per week. Regarding the left knee, will continue advancing flexion until 120 degrees is reached. Advised her to remain PWB for both knees. She verbalized understanding to plan of care. All questions were answeredto her satisfaction. Will see back in 4 weeks. I have reviewed the findings of the clinical administrative support assistant and agree with their assessment. Ortho Nurse [...] 03/22/2024 3:49 PM Patient: Danyelle Haskins MR#: [id number] : 1955 Age: 68 y.o. Referring Physician: [...] CATARACT W/ IMPLANT (ECCE IOL) Bilateral 2018 [facility] TREATMENT OPEN PATELLAR FX W/ INTERNAL FIXATION [...] times daily October 01, 2020 10:38am 10-01-2020 [facility] ([id number]) Docusate 100 MG capsule Take 1 capsule by mouth 2 times daily. 60 capsule 0 Doxazosin 4 MG tablet Take 1 tablet by mouth daily. Folic acid 1 MG tablet Take 1 tablet by mouth daily. Jovitedbrph-Svvkuorof-Jeh C-Mn (Glucosamine 1500 Complex) capsule Take by [...] bactrim [sulfamethoxazole-trimethoprim], and levofloxacin. documented in this encounterPark[facility]04-18-2024 History of Present illness Narrative* Allison To - 02/23/2024 11:00 AM EDT Ortho Nurse - Established Patient Intake Room#: 4 Date: 02/23/2024 11:05 AM Patient: Danyelle Haskins MR#: [id number] : 1955 Age: 68 y.o. 4M L [...] KNEE Left 11/21/2018 Laterality: Left; Surgeon: New Mccluer MD; Location: [facility] EXTRACTION EXTRACAPSULAR CATARACT W/ IMPLANT (ECCE IOL) Bilateral 2018 [facility] TREATMENT OPEN PATELLAR FX W/ INTERNAL FIXATION [...] GM Topical Four times daily October 01, 2020:38am 10-01-2020 [facility] ([id number]) Docusate 100 MG capsule Take 1 capsule by mouth 2 times daily. 60 capsule 0 Doxazosin 4 MG tablet Take 1 tablet by mouth daily. Folic acid 1 MG tablet Take 1 tablet by mouth daily. Dhvtygunfld-Jhfufmtni-Gqm C-Mn (Glucosamine 1500 Complex) capsule Take by [...] times daily October 01, 2020 10:38am 10-01-2020 [facility] ([id number]), Disp: , Rfl: Docusate 100 MG capsule, Take 1 capsule by mouth 2 times daily., Disp: 60 capsule, Rfl: 0 Doxazosin 4 MG tablet, Take 1 tablet by mouth daily., Disp: , Rfl: Folic acid 1 MG tablet, Take 1 tablet by mouth daily., Disp: , Rfl: Zcjqghiokib-Cmoppevqs-Zfx C-Mn (Glucosamine 1500 Complex) capsule, Take by [...] by mouth at bedtime., Disp: 30 tablet, Rfl:0 tiZANidine 4 MG tablet, Take 1 tablet by mouth every 6 hours as needed for Muscle spasms., Disp: , Rfl: traMADol 50 MG tablet, Take 1 tablet by mouth 3 times daily as needed for Pain., Disp: , Rfl: triamterene-hydrochlorothiazide 37.5-25 MG Cap, Take 1 capsule by mouth as needed (edema)., Disp: ,Rfl: TURMERIC PO, as directed Orally, Disp: , [...] alendronate, gabapentin, oxcarbazepine, bactrim [sulfamethoxazole-trimethoprim], and levofloxacin. * Rajinder Green APRN-[employer] - 02/23/2024 11:00 AM EDT SUBJECTIVE: Danyelle is an established patient of [facility]. She is here today for followup. She [...] up in 4 weeks, sooner as needed. (DOC:[id number]) I have reviewed the findings of the clinical administrative support assistant and agree with their assessment. Rajinder Green APRN-MARTY Ortho Nurse - Established Patient Intake Room#: 4 Date: 02/23/2024 11:05 AM Patient: Danyelle Haskins MR#: [id number] : 1955 Age: 68 y.o. 4M L [...] CATARACT W/ IMPLANT (ECCE IOL) Bilateral 2017 [facility] TREATMENT OPEN PATELLAR FX W/ INTERNAL FIXATION [...] times daily October 01, 2020 10:38am 10-01-2020 [facility] ([id number]) Docusate 100 MG capsule Take 1 capsule by mouth 2 times daily. 60 capsule 0 Doxazosin 4 MG tablet Take 1 tablet by mouth daily. Folic acid 1 MG tablet Take 1 tablet by mouth daily. Rckdwopvxyj-Aaqlbxlit-Lto C-Mn (Glucosamine 1500 Complex) capsule Take by [...] times daily October 01, 2020 10:38am 10-01-2020 [facility] ([id number]), Disp: , Rfl: Docusate 100 MG capsule, Take 1 capsule by mouth 2 times daily., Disp: 60 capsule, Rfl: 0 Doxazosin 4 MG tablet, Take 1 tablet by mouth daily., Disp: , Rfl: Folic acid 1 MG tablet, Take 1 tablet by mouth daily., Disp: , Rfl: Bbteusyzozh-Kynrqeoch-Xva C-Mn (Glucosamine 1500 Complex) capsule, Take by [...] by mouth at bedtime., Disp: 30 tablet, Rfl:0 tiZANidine 4 MG tablet, Take 1 tablet by mouth every 6 hours as needed for Muscle spasms., Disp: , Rfl: traMADol 50 MG tablet, Take 1 tablet by mouth 3 times daily as needed for Pain., Disp: , Rfl: triamterene-hydrochlorothiazide 37.5-25 MG Cap, Take 1 capsule by mouth as needed (edema)., Disp: ,Rfl: TURMERIC PO, as directed Orally, Disp: , [...] bactrim [sulfamethoxazole-trimethoprim], and levofloxacin. documented in this encounterPark[facility]03-07-[facility] History of Present illness Narrative* Denise Michelle - 01/12/2024 1:00 PM EST Ortho Nurse - Established Patient Intake Room#: 1 ----follow-up from call from long-term on 12.30.23 that she fractured her patella. Renettan't recall having a fall more more of a twisting episode when she was with PT. Her ankle started to give out and in order to not injure her operative leg she twisted her right leg. She states shedid not feel a pop or anything, she didn't even have pain until days later when she tried to weight bear. She is wearing a brace and in a wheelchair today and rates her pain at a 1. She states she has been non weight bearing and in a brace since. Date: 01/12/2024 1:03 PM Patient: Danyelle Haskins MR#: [id number] : 1955 Age: 68 y.o. Referring Physician: [...] CATARACT W/ IMPLANT (ECCE IOL) Bilateral 2018 [facility] TREATMENT OPEN PATELLAR FX W/ INTERNAL FIXATION [...] times daily October 01, 2020 10:38am 10-01-2020 [facility] ([id number]) Docusate 100 MG capsule Take 1 capsule by mouth 2 times daily. 60 capsule 0 Doxazosin 4 MG tablet Take 1 tablet by mouth daily. Folic acid 1 MG tablet Take 1 tablet by mouth daily. Akgmyscyxmf-Gkclitlcv-Lil C-Mn (Glucosamine 1500 Complex) capsule Take by [...] alendronate, gabapentin, oxcarbazepine, bactrim [sulfamethoxazole-trimethoprim], and levofloxacin. * New Mcclure MD - 01/12/2024 1:00 PM EST HPI: Patient is here today for evaluation of her operative knee. She is status post right total knee arthroplasty on 04/26/23. My office received a call from [facility] on 12/30/23 stating patient suffered a fall and fractured her patella. Patient states this was more of a twisting incident instead of fall when she was working with PT for strengthening her left knee revision with extensor mechanism meshreconstruction on 11/29/23. She reports her ankle started [...] States she has been nonweightbearing. Pain of 10. She is here today for further evaluation. [...] fracture with TROM, continue DVT prophylaxis with extens ion to right knee with luz marina Wilson. Unfortunately this is a very complex situation as thisPOC means both legs will be immobilized. May need a extensor reconstruction dependent upon how mobility progresses - if she regains the flexibility she had prior to patellar fracture, then this will not be warranted. Also, depending on how radiographs progress, may need a CT scan in the future. Seeback on 02/23/24 for both knees and re-assess at that time when is optimal timeframe to start advancing flexion. She is in agreement with the plan of care. All questions were answered to her satisfaction. I have reviewed the findings of the clinical administrative support assistant and agree with their assessment. Ortho Nurse - Established Patient Intake Room#: 1 ----follow-up from call from long-term on 12.30.23 that she fractured her patella. Saeesn't recall having a fall more more of a twisting episode when she was with PT. Her ankle started to give out and in order to not injure her operative leg she twisted her right leg. She states shedid not feel a pop or anything, she didn't even have pain until days later when she tried to weight bear. She is wearing a brace and in a wheelchair today and rates her pain at a 1. She states she has been non weight bearing and in a brace since. Date: 01/12/2024 1:03 PM Patient: Danyelle Haskins MR#: [id number] : 1955 Age: 68 y.o. Referring Physician: [...] CATARACT W/ IMPLANT (ECCE IOL) Bilateral 2018 [facility] TREATMENT OPEN PATELLAR FX W/ INTERNAL FIXATION [...] times daily October 01, 2020 10:38am 10-01-2020 [facility] ([id number]) Docusate 100 MG capsule Take 1 capsule by mouth 2 times daily. 60 capsule 0 Doxazosin 4 MG tablet Take 1 tablet by mouth daily. Folic acid 1 MG tablet Take 1 tablet by mouth daily. Hohntcokuck-Jogzlqpqy-Sun C-Mn (Glucosamine 1500 Complex) capsule Take by [...] bactrim [sulfamethoxazole-trimethoprim], and levofloxacin. documented in this encounterPark[facility]12-28-[facility] History of Present illness Narrative* Shayla Garza RN - 11/03/2023 10:00 AM EST PAT- ADDITIONAL QUESTIONS Reviewed medication list with [...] TRANSFUSION/REACTION Yes, no adverse reaction. CULTURAL OR DRUZE BELIEFS THAT WILL AFFECT CARE no DIETARY [...] patient. Reviewed pt history and medications with patient.Pt was given instructions for upcoming surgery and given opportunity to ask questions. Pt verbalized understanding of instructions. * Nidhi Almaguer RN - 11/03/2023 10:00 AM EST 11/03/2023 1010 blood pressure elevated today at PAT. Reports have white coat syndrome. It's neverhigh like that when I check it at home. Denies headache or complaints. Reports that she will checkthe BP on arrival home. Encouraged to discuss with pcp if remains elevated, voiced understanding. Discharged ambulatory, gait steady with walker. documented in this [facility]12-28-[facility] Instructions* Patient Instructions* Everton Ball RN - 11/03/2023 10:[address] Mcclure's office will call you for your arrival time, 1-2 business days before your scheduled surgery. Please review your surgery checklist and bring your guide or booklet the day of surgery. Pre-Admission Testing Dept. [phone] Call if you have any changes in [...] Advil, etc.), fish oil, other supplements, energy drinksand essential oils 7 days before your surgery or as instructed by your physician. STOP diet pills and appetite suppressants 14 days before surgery or as instructed by your physician. *If you are prescribed any new medicines between your PAT appointment and your surgery date, pleasecall the PAT office for specific instructions regarding you new medicines.* No alcohol during the 48-hours prior to your surgery. No illicit drugs during the 5 days prior to your surgery. Nothing by mouth after midnight except for water and Gatorade/powerade which can be consumed up until you leave for the hospital. DIRECTIONS: Park in the front main [facility] facing [address]. Enter through the front entrance and sign in at the Registration Desk at the front lobby. Thank you for allowing us the privilege to care for you! *If you are prescribed any new medicines between your PAT appointment and your surgery date, pleasecall the PAT office for specific instructions regarding you new medicines.* Please record date and time of your medications on this sheet and bring this with you on the day ofsurgery. Yellow - take the day of surgery [place] - hold according to the doctor's instructions [...] times daily October 01, 2020 10:38am 10-01-2020 [facility] ([id number]) STOP 7 DAYS BEFORE YOUR SURGERY LAST DOSE: DATE TIME Doxazosin 4 MG tablet 4 mg, Oral, DAILY STOP TAKING 24 hours BEFORE YOUR SURGERY Last Dose: Date Time Folic acid 1 MG tablet 1,000 mcg, Oral, DAILY CONTINUE, but DO NOT take the morning of surgery. Last Dose: Date Time Xolcxsrfrvf-Tysuvxvxl-Eyi C-Mn (Glucosamine 1500 Complex) capsule Oral, DAILY [...] Last Dose: Date Time documented in this [facility]12-28-[facility] Miscellaneous Notes* Addendum Note - Everton Ball RN - 11/03/2023 10:00 AM ESTAddended by: EVERTON BALL on: 10/27/2023 10:19 AM Modules accepted: Orders * Addendum Note - Everton Ball RN - 11/03/2023 10:00 AM ESTAddended by: EVERTON BALL on: 11/01/2023 01:36 PM Modules accepted: Orders documented in this encounterPark[facility]12-28-2023 Note* Addendum Note - Everton Ball RN - 11/03/2023 10:00 AM ESTAddended by: EVERTON BALL on: 10/27/2023 10:19 AM Modules accepted: Orders [facility]12-28-[facility] Note* Addendum Note - Everton Ball RN - 11/03/2023 10:00 AM ESTAddended by: EVERTON BALL on: 11/01/2023 01:36 PM Modules accepted: Orders [facility]10[facility] History of Present illness Narrative* Denise Michelle - 09/01/2023 1:00 PM EDT Ortho Nurse - Established Patient Intake Room#: 1 ----- 4 month f\u R TKR and is doing great. Also concerned about left knee and that it keeps slipping out of place. No pain with the knee just instability and would like it looked at again. Date: 09/01/2023 1:06 PM Patient: Danyelle Haskins MR#: [id number] : 1955 Age: 68 y.o. Referring Physician: [...] CATARACT W/ IMPLANT (ECCE IOL) Bilateral 2018 [facility] TREATMENT OPEN PATELLAR FX W/ INTERNAL FIXATION [...] times daily October 01, 2020 10:38am 10-01-2020 [facility] ([id number]) Doxazosin 4 MG tablet Take 1 tablet [...] daily. Take with food. (Patient not taking: Reportedon 09/01/2023) 30 tablet 0 oxyCODONE 5 MG [...] alendronate, gabapentin, oxcarbazepine, bactrim [sulfamethoxazole-trimethoprim], and levofloxacin. * New Mcclure MD - 09/01/2023 1:00 PM EDT HPI: Patient is here today for evaluation [...] She is here today to further discuss surgicalinterventions for optimal alf management. Patient is also here today for [...] upper extremities have no gross deformities. Normal stability.Skin Intact. 5/5 motor. Intact sensation. Normal neurovascular [...] supple motion. No pain, no impingement. No instability.Incision is well healed. She has full return [...] stage. She understands she is at the 50%star of total recovery. We also discussed the [...] a left total knee revision for optimal superintendent terminal management. We have discussed in great detail [...] the increased and major risks of revision surgerysuch as karly-prosthetic fracture, infection, component failure or [...] nasal MRSA screening, scheduling an appointment for [facility] and the potential surgical date, and reviewing and signing the consentforms. I have reviewed the findings of the clinical administrative support assistant and agree with their assessment. Ortho Nurse - Established Patient Intake Room#: 1 ----- 4 month f\u R TKR and is doing great. Also concerned about left knee and that it keeps slipping out of place. No pain with the knee just instability and would like it looked at again. Date: 09/01/2023 1:06 PM Patient: Danyelle Haskins MR#: [id number] : 1955 Age: 68 y.o. Referring Physician: [...] CATARACT W/ IMPLANT (ECCE IOL) Bilateral 2018 [facility] TREATMENT OPEN PATELLAR FX W/ INTERNAL FIXATION [...] times daily October 01, 2020 10:38am 10-01-2020 [facility] ([id number]) Doxazosin 4 MG tablet Take 1 tablet [...] daily. Take with food. (Patient not taking: Reportedon 09/01/2023) 30 tablet 0 oxyCODONE 5 MG [...] bactrim [sulfamethoxazole-trimethoprim], and levofloxacin. documented in this [facility]07-13-2023 History of Present illness Narrative* Marcie Lantigua LPN - 05/19/2023 2:40 PM EDT Ortho Nurse - Established Patient Intake Room#: 5 Date: 05/19/2023 2:43 PM Patient: Danyelle Haskins MR#: [id number] : 1955 Age: 67 y.o. 3 wks s/p R TKA. She states she is doing well and has minimal pain at times. She is using a walker for assistive device. Referring Physician: Rajinder Green APRN-MARTY Insurance: Payor: MEDICARE / Plan: MEDICARE A [...] CATARACT W/ IMPLANT (ECCE IOL) Bilateral 2018 [facility] TREATMENT OPEN PATELLAR FX W/ INTERNAL FIXATION [...] times daily October 01, 2020 10:38am 10-01-2020 [facility] ([id number]) Docusate 100 MG capsule Take 1 capsule [...] times daily October 01, 2020 10:38am 10-01-2020 [facility] ([id number]), Disp: , Rfl: Docusate 100 MG capsule, [...] by mouth at bedtime., Disp: 30 tablet, Rfl:0 tiZANidine 4 MG tablet, Take 1 tablet by mouth every 6 hours as needed for Muscle spasms., Disp: , Rfl: triamterene-hydrochlorothiazide 37.5-25 MG Cap, Take 1 capsule by mouth as needed (edema)., Disp: ,Rfl: oxyCODONE 5 MG tablet, Take one to two tabs every 4-6 hours as needed for severe pain. Wean as tolerated, Disp: 30 tablet, Rfl: 0 Allergies: She is allergic to ciprofloxacin, gralise [gabapentin (once-daily)], alendronate, gabapentin, oxcarbazepine, bactrim [sulfamethoxazole-trimethoprim], and levofloxacin. * Rajinder Green APRN-[employer] - 05/19/2023 2:40 PM EDT HPI: Danyelle Haskins is 3 weeks s/p right TKA. She is happy with her recovery to date and could not be happier with the outcomes of the operation. She is participating in PT in the home setting, using apixabanfor DVT prophylaxis along with compression stockings. She reports she doing well overall. PHYSICAL EXAM: Today on examination she is Temp 97.6 F (36.4 C) (Temporal) Ht 1.727 m (5' 8 ) Wt 102.5 kg (226lb) BMI 34.36 kg/m Smoking Status Never Body [...] cemented total knee arthroplasty in good position andalignment unchanged from the immediate postop films. Assessment/Plan: 3 weeks postop right TKA. Continue DVT prophylaxis as prescribed. Continue physical therapy- if ROM goals not obtained the patient is to call the office for a follow up appointment otherwise plan for: follow up in one year for a repeat clinical and radiological evaluation unless anearlier need should arise. Dental prophylaxis was prescribed and instructions given. All questions and concerns were addressed at this appointment and the patient expressed understanding. Followup with Dr. Mcclure in 4-5 months to further discuss treatment for the left prosthetic knee, history of left total knee arthroplasty with extensor mechanism reconstruction with mesh. All pertinent portions of the clinical administrative support assistant documentation was reviewed and agree. EFREN Logan Ortho Nurse - Established Patient Intake Room#: 5 Date: 05/19/2023 2:43 PM Patient: Danyelle Haskins MR#: [id number] : 1955 Age: 67 y.o. 3 wks [...] CATARACT W/ IMPLANT (ECCE IOL) Bilateral 2018 [facility] TREATMENT OPEN PATELLAR FX W/ INTERNAL FIXATION [...] times daily October 01, 2020 10:38am 10-01-2020 [facility] ([id number]) Docusate 100 MG capsule Take 1 capsule [...] times daily October 01, 2020 10:38am 10-01-2020 [facility] ([id number]), Disp: , Rfl: Docusate 100 MG capsule, [...] by mouth at bedtime., Disp: 30 tablet, Rfl:0 tiZANidine 4 MG tablet, Take 1 tablet by mouth every 6 hours as needed for Muscle spasms., Disp: , Rfl: triamterene-hydrochlorothiazide 37.5-25 MG Cap, Take 1 capsule by mouth as needed (edema)., Disp: ,Rfl: oxyCODONE 5 MG tablet, Take one to two tabs every 4-6 hours as needed for severe pain. Wean as tolerated, Disp: 30 tablet, Rfl: 0 Allergies: She is allergic to ciprofloxacin, gralise [gabapentin (once-daily)], alendronate, gabapentin, oxcarbazepine, bactrim [sulfamethoxazole-trimethoprim], and levofloxacin. documented in this [facility]10-25-2021 Evaluation note* Encounter Date Diagnosis Assessment Notes Treatment Notes Treatment Clinical Notes Aug, Lumbar spondylosis (ICD-10 - M47.816) [...] management and focal injections would be appropriate. [employer] Other 05-10-2021 Note [id number]:127[facility] 03-12-2021 NoteCystoscopy with Urethral Dilation [...] if you have a fever over 100 degreesMarietta [facility]05-05-2021 History of Present illness Narrative* [...] have reviewed the findings of the clinical administrative support assistant and agree with their assessment. Ortho Nurse Established Patient Intake Room#: 3 F/U from PT, seen 11-19-20, left knee TKA 11-21-18 with extensor mechanism repair, states her pain is a 2 and she is doing much better Date: 03/11/2021 1:59 PM Patient: Danyelle Haskins MR#: [id number] : 1955 Age: 65 y.o. Referring Physician: [...] CATARACT W/ IMPLANT (ECCE IOL) Bilateral 2018 [facility] TREATMENT OPEN PATELLAR FX W/ INTERNAL FIXATION [...] mouth 3 times daily as needed. Biotin 66812 MCG Tab take 2 tablets by mouth 2 times daily.. Calcium Carb-Cholecalciferol (CALCIUM 600 + D) 600-200 MG-UNIT Tab tablet Take 2.5 tablets by mouthDaily (with lunch). Diclofenac Sodium 1 % Gel gel Diclofenac Diclofenac Sodium Active 4 GM Topical Four times daily October 01, 2020 10:38am 10-01-2020 [facility] ([id number]) ferrous sulfate 325 (65 Fe) MG Tab [...] as needed. , Disp: , Rfl: Biotin 04839 MCG Tab, take 2 tablets by mouth 2 times daily.. , Disp: , Rfl: Calcium Carb-Cholecalciferol (CALCIUM 600 + D) 600-200 MG-UNIT Tab tablet, Take 2.5 tablets by mouth Daily (with lunch). , Disp: , Rfl: Diclofenac Sodium 1 % Gel gel, Diclofenac Diclofenac Sodium Active 4 GM Topical Four times daily October 01, 2020 10:38am 10-01-2020 [facility] ([id number]), Disp: , Rfl: ferrous sulfate 325 (65 [...] 03/11/2021 1:59 PM Patient: Danyelle Haskins MR#: [id number] : 1955 Age: 65 y.o. Referring Physician: [...] CATARACT W/ IMPLANT (ECCE IOL) Bilateral 2017 [facility] TREATMENT OPEN PATELLAR FX W/ INTERNAL FIXATION [...] mouth 3 times daily as needed. Biotin 60933 MCG Tab take 2 tablets by mouth 2 times daily.. Calcium Carb-Cholecalciferol (CALCIUM 600 + D) 600-200 MG-UNIT Tab tablet Take 2.5 tablets by mouthDaily (with lunch). Diclofenac Sodium 1 % Gel gel Diclofenac Diclofenac Sodium Active 4 GM Topical Four times daily October 01, 2020 10:38am 10-01-2020 [facility] ([id number]) ferrous sulfate 325 (65 Fe) MG Tab [...] as needed. , Disp: , Rfl: Biotin 69712 MCG Tab, take 2 tablets by mouth 2 times daily.. , Disp: , Rfl: Calcium Carb-Cholecalciferol (CALCIUM 600 + D) 600-200 MG-UNIT Tab tablet, Take 2.5 tablets by mouth Daily (with lunch). , Disp: , Rfl: Diclofenac Sodium 1 % Gel gel, Diclofenac Diclofenac Sodium Active 4 GM Topical Four times daily October 01, 2020 10:38am 10-01-2020 [facility] ([id number]), Disp: , Rfl: ferrous sulfate 325 (65 [...] bactrim [sulfamethoxazole-trimethoprim]. [facility] Diagnosis Left knee pain, unspecified chronicity- Primary Right knee pain, unspecified chronicity [facility] Diagnosis Hx of total knee arthroplasty, right- Primary [facility] noteNo assessment information availableK[facility] Work Phone: Evaluation note* Diagnosis Hx of total knee arthroplasty, right- Primary Hx of total knee arthroplasty, left [facility] Diagnosis Preop testing- Primary Preoperative examination, unspecified Abnormal finding of blood chemistry, unspecified Abnormal coagulation profile Failed total left knee replacement, initial encounter [facility] Diagnosis Pain in right knee Pain in joint, lower leg [facility] Right [facility] pain, unspecified chronicity- Primary [facility] Diagnosis Hx of total knee arthroplasty, left- Primary [facility] Diagnosis Pain in both knees, unspecified chronicity- Primary [facility] Diagnosis Pain in both knees, unspecified chronicity- Primary [facility] Diagnosis Pain in both knees, unspecified chronicity- Primary [facility] Diagnosis Abscess of toe, right- Primary Acquired deformity of left toe documented [facility]* Diagnosis Pain due to onychomycosis of toenails of both feet- Primary Acquired deformity of left toe documented in this encounter [facility]* Diagnosis Polyneuropathy- Primary Unspecified hereditary and idiopathic peripheral neuropathy Spinal stenosis of lumbar region, unspecified whether neurogenic claudication present Degenerative disc disease, lumbar documented in this encounter [facility]* Diagnosis Spinal stenosis of lumbar region, unspecified whether neurogenic claudication present- Primary Degenerative disc disease, lumbar Facet arthritis of lumbar region Blepharospasm Polyneuropathy Unspecified hereditary and idiopathic peripheral neuropathy Paresthesias Disturbance of skin sensation documented in this encounter [facility]* Diagnosis Paresthesias- Primary Disturbance of skin sensation Blepharospasm Spinal stenosis of lumbar region, unspecified whether neurogenic claudication present [facility] Diagnosis Paresthesias Disturbance of skin sensation Spinal stenosis of lumbar region, unspecified whether neurogenic claudication present [facility]* Diagnosis Carpal tunnel syndrome on both sides- Primary Carpal tunnel syndrome Paresthesias Disturbance of skin sensation [facility]* Diagnosis Acquired deformity of left toe- Primary Onychomycosis Dermatophytosis of nail Toe pain, bilateral documented in this encounter [facility]* Diagnosis Spinal stenosis of lumbar region, unspecified whether neurogenic claudication present- Primary Paresthesias Disturbance of skin sensation documented in this encounter [facility]* Diagnosis Onychocryptosis- Primary Ingrowing nail Toe pain, right Pain in soft tissues of limb Abscess of toe, right documented in this encounter [facility]* Diagnosis 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 documented in this encounter [facility]* Diagnosis Abscess of toe, right Onychocryptosis- Primary Ingrowing nail Toe pain, right Pain in soft tissues of limb Abscess of toe, right Acquired deformity of left toe documented in this encounter [facility]* Diagnosis Long-term use of hydroxychloroquine- Primary Intermediate stage nonexudative age-related macular degeneration of both eyes Dry eyes Unspecified tear film insufficiency Left posterior capsular opacification Unspecified after-cataract Blepharitis of upper and lower eyelids of both eyes, unspecified type Onychocryptosis- Primary Ingrowing nail Toe pain, right Pain in soft tissues of limb Abscess of toe, right Acquired deformity of left toe documented in this encounter [facility]* Diagnosis Onychocryptosis- Primary Ingrowing nail Toe pain, right Pain in soft tissues of limb Abscess of toe, right Acquired deformity of left toe documented in this encounter [facility]* Diagnosis Acquired deformity of left toe- Primary Pain due to onychomycosis of toenails of both feet documented in this encounter [facility]* Diagnosis Pain in left knee- Primary Pain [...] Other disorders of synovium, tendon, and bursa Hx of total knee arthroplasty, left- Primary Hx of total knee arthroplasty, right [facility] Diagnosis Spinal stenosis of lumbar region, unspecified whether neurogenic claudication present- Primary Degeneration of intervertebral disc of lumbar region with discogenic back pain Facet arthritis of lumbar region Blepharospasm Polyneuropathy Unspecified hereditary and idiopathic peripheral neuropathy Carpal tunnel syndrome on both sides Carpal tunnel syndrome documented in this encounter [facility]* Diagnosis Cellulitis of left foot- Primary Acquired deformity of left toe documented in this encounter [facility]* Diagnosis Cellulitis of left foot- Primary Acquired deformity of left toe Foot ulcer, left, with fat layer exposed (CMS/HCC) Other polyneuropathy documented in this encounter [facility]* Diagnosis Cellulitis of left foot- Primary Acquired deformity of left toe Foot ulcer, left, with fat layer exposed (CMS/HCC) Other polyneuropathy documented in this encounter [facility]* Diagnosis Paresthesias Disturbance of skin sensation Spinal stenosis of lumbar region, unspecified whether neurogenic claudication present documented in this encounter [facility]* Diagnosis Acquired deformity of left toe- Primary Other polyneuropathy documented in this encounter [facility]* Diagnosis Acquired deformity of left toe- Primary Other polyneuropathy documented in this encounter [facility]* Diagnosis Paresthesias Disturbance of skin sensation Spinal stenosis of lumbar region, unspecified whether neurogenic claudication present documented in this encounter [facility]* Diagnosis Pain due to onychomycosis of toenails of both feet- Primary documented in this encounter [facility]* Diagnosis Onset Date Resolution Status Admit Date Blepharospasm chronic May 01, 2025 9:33am Carpal tunnel syndrome, bilateral chronic May 01, 2025 9:33am DDD (degenerative disc disea se), lumbar chronic May 01, 2025 9:33am Facet arthritis of lumbar region [facility] May 01, 2025 9:33am Polyneuropathy chronic May 01, 2025 9:33am Spinal stenosis of lumbar region [facility] May 01, 2025 9:33am [facility] Work Phone: Evaluation note* Diagnosis Intermediate stage nonexudative age-related macular degeneration of both eyes- Primary Long-term use of hydroxychloroquine documented in this encounter [facility]* Diagnosis Pain due to onychomycosis of toenails of both feet- Primary documented in this encounter [facility] Healthcare[facility] general Narrative - Reported* Type Description Date Medical History connective tissue disease Medical History Arthritis Medical History spinal compression Surgical History back surgery Surgical History ganglion cyst Surgical History tonsillectomy Surgical History hysterectomy Surgical History tendon repair Surgical History wrist surgery Surgical History cataracts, bilaterally Surgical History Abdominal Ablation Hospitalization History see surgical hx [employer] Other Reason for referral (narrative)* Consultation (Routine) - Patient to Arrange Specialty Diagnoses / Procedures Referred By Turner t Referred To Contact Physical Therapy Diagnoses Pain in both knees, unspecified chronicity Foster, New, MD [address] [place] [address] Referral ID Status Reason Start Date Expiration Date V isits Requested Visits Authorized [id number] Patient to Arrange 05/31/2024 06/25/2025 1 1 Scheduling Instructions . [facility]ative)No reason for referral information availableBelle[facility] Work Phone: Summary Purpose Family History Relationship Condition Age at Onset Recorded Date/T kayode Not Specified Diabetes mellitus Unknown Arthritis Unknown Family history of cataracts Unknown Hypertension Unknown father Liposarcoma Unknown sister Malignant neoplasm of thyroid gland Unkno wn family member Pituitary neoplasm Unknown Relationship Condition Age at Onset Recorded Date/T kayode Not Specified Diabetes mellitus Unknown Arthritis Unknown Family history of cataracts Unknown Hypertension Unknown father Liposarcoma Unknown sister Malignant neoplasm of thyroid gland Unkno wn family member Pituitary neoplasm Unknown brother Unknown father Unknown Advance Directives Documents on File Type Date Recorded Patient Relations Liaison Expl anation Advance Directives/Living Will 11/21/2018 8:22 AM Advance Directives/Living Will 11/21/2018 8:26 AM Latest Code Status on File Code Status Date Activated Date Inactivated Comments Full Code 11/21/2018 2:46 PM Full Code 07/18/2017 4:04 PM 07/21/2017 7:25 PM Documents on File Type Date Recorded Patient Relations Liaison Expl anation Advance Directives/Living Will 11/21/2018 8:22 [...] Comments 07/18/2017 4:04 PM 07/21/2017 7:25 PM Advance Directive Response Recorded Date/ Time Advance Directives No September 12:45pm Reason for Referral Status Reason Specialty Diagnoses / Procedures Referred By Contact Referred To Contact New Request Diagnoses Pre-op exam Procedures ECG New Mcclure MD [address] [place] [address] Status Reason Specialty Diagnoses / Procedures Referred By Contact Referred To Contact New Request Procedures ACTIVITY TOLERATED Rajinder Green APRN-CNP [address] [place] [id number] Status Reason Specialty Diagnoses / Procedures Referre d By Contact Referred To Contact Rajinder Green APRN-CNP [address] [place] [address] Status Reason Specialty Diagnoses / Procedures Referred By Contact Referred To Contact New Request Diagnoses Hx of total knee arthroplasty, left Procedures XR KNEE LEFT 2 VIEWS XR KNEE LEFT 3 VIEWS Rajinder Green, TIRE DESIGN ENGINEER-MARTY [address] [place], [place] [id number] Status Reason Specialty Diagnoses / Procedures Referred By Contact Referred To Contact New Request Physical Therapy Diagnoses History of total knee arthroplasty, left Right hip pain New Mcclure MD [address] [place], [place] [id number] Scheduling Instructions . Status Reason Specialty Diagnoses / Procedures Referred By Contact Referred To Contact Schedule Outgoing - Transfer of Care Physical Therapy Diagnoses History of total knee arthroplasty, left New Mcclure MD [address] [place], [place] [id number] Status Reason Specialty Diagnoses / Procedures Referred By Contact Referred To Contact New Request Diagnoses Right hip pain Procedures XR HIP WITH PELVIS RIGHT New Mcclure MD [address] [place], [place] [id number] Status Reason Specialty Diagnoses / Procedures Referred By Contact Referred To Contact New Request Sports Ortho and Primary Care Sports Diagnoses Right hip pain New Mcclure MD [address] [place], [place] [id number] Status Reason Specialty Diagnoses / Procedures Referred By Contact Referred To Contact New Request Diagnoses Right knee pain, unspecified chronicity Procedures LARGE JOINT INJECTION: R knee New Mcclure MD [address] [place], [place] [address] Status Reason Specialty Diagnoses / Procedures Referred By Contact Referred To Contact New Request Diagnoses Left knee pain, unspecified chronicity Procedures XR KNEE LEFT 2 VIEWS XR KNEE LEFT 3 VIEWS New Mcclure MD [address] [place], [place] [id number] Status Reason Specialty Diagnoses / Procedures Referred By Contact Referred To Contact Pending Review Diagnoses History of total knee arthroplasty, left Procedures XR KNEE LEFT 3 VIEWS New Mcclure MD [address] [place], [place] [id number] Status Reason Specialty Diagnoses / Procedures Referred By Contact Referred To Contact Patient to Arrange Physical Therapy Diagnoses Pain in prosthetic joint, initial encounter New Mcclure MD [address] [place] [phone] Status Reason Specialty Diagnoses / Procedures Referred By Contact Referred To Contact New Request Diagnoses Hx of total knee arthroplasty, left Procedures XR KNEE LEFT 3 VIEWS New Mcclure MD [address] [place] [address] Status Reason Specialty Diagnoses / Procedures Referred By Contact Referred To Contact Patient to Arrange Physical Therapy Diagnoses History of total knee arthroplasty, left New Mcclure MD [address] [place], [place] [id number] Specialty Diagnoses / Procedures Referred By Contac t Referred To Contact Diagnoses Hx of total knee arthroplasty, right Procedures XR KNEE RIGHT 3 VIEWS Rajinder Green, TIRE DESIGN ENGINEER-[employer]ORER [address] [place], [place] [phone] Referral ID Status Reason Start Date Expiration Date V isits Requested Visits Authorized [id number] New Request 05/11/2023 06/04/2024 1 1 Specialty Diagnoses / Procedures Referred By Contac t Referred To Contact Diagnoses Hx of total knee arthroplasty, right Procedures XR BONE LENGTH STUDY New Mcclure MD [address] [place] [phone] Referral ID Status Reason Start Date Expiration Date V isits Requested Visits Authorized [id number] New Request 08/30/2023 09/23/2024 1 1 Specialty Diagnoses / Procedures Referred By Contac t Referred To Contact Diagnoses Hx of total knee arthroplasty, right Procedures XR KNEE RIGHT 3 VIEWS New Mcclure MD [address] [place] [phone] Referral ID Status Reason Start Date Expiration Date V isits Requested Visits Authorized [id number] New Request 08/30/2023 09/23/2024 1 1 Specialty Diagnoses / Procedures Referred By Contac t Referred To Contact Diagnoses Hx of total knee arthroplasty, left Procedures XR KNEE LEFT 3 VIEWS New Mcclure MD [address] [place] [phone] Referral ID Status Reason Start Date Expiration Date V isits Requested Visits Authorized [id number] New Request 08/30/2023 09/23/2024 1 1 Specialty Diagnoses / Procedures Referred By Contac t Referred To Contact Diagnoses Preop testing Procedures PREPARE TO TRANSFUSE RED BLOOD CELLS New Mcclure MD [address] [place] [address] Referral ID Status Reason Start Date Expiration Date V isits Requested Visits Authorized [id number] New Request 11/01/2023 11/25/2024 1 1 Specialty Diagnoses / Procedures Referred By Contac t Referred To Contact Diagnoses Preop testing Procedures ECG New Mcclure MD [address] [place] [phone] Referral ID Status Reason Start Date Expiration Date V isits Requested Visits Authorized [id number] New Request 10/27/2023 11/20/2024 1 1 Specialty Diagnoses / Procedures Referred By Contac t Referred To Contact Diagnoses Right knee pain, unspecified chronicity Procedures XR KNEE RIGHT 3 VIEWS New Mcclure MD [address] [place] [phone] Referral ID Status Reason Start Date Expiration Date V isits Requested Visits Authorized [id number] New Request 01/09/2024 02/02/2025 1 1 Specialty Diagnoses / Procedures Referred By Contac t Referred To Contact Diagnoses Hx of total knee arthroplasty, left Procedures XR KNEE LEFT 1-2 VIEWS XR KNEE LEFT 3 VIEWS Rajinder Green, TIRE DESIGN ENGINEER-[employer] LABORER [address] [place] [phone] Referral ID Status Reason Start Date Expiration Date V isits Requested Visits Authorized [id number] New Request 02/21/2024 03/17/2025 1 1 Specialty Diagnoses / Procedures Referred By Contac t Referred To Contact Diagnoses Hx of total knee arthroplasty, left Procedures XR BONE LENGTH STUDY Rajinder Green, TIRE DESIGN ENGINEER-[employer]ORER [address] [place] [phone] Referral ID Status Reason Start Date Expiration Date V isits Requested Visits Authorized [id number] New Request 02/21/2024 03/17/2025 1 1 Specialty Diagnoses / Procedures Referred By Contac t Referred To Contact Diagnoses Polyneuropathy Spinal stenosis of lumbar region, unspecified whether neurogenic claudication present Degenerative disc disease, lumbar Sammy Gaby, LINESPERSON [address] [facility] [address] [place] [phone] Referral ID Status Reason Start Date Expiration Date V isits Requested Visits Authorized [id number] Pending Review 2024 01/15/2025 1 1 Specialty Diagnoses / Procedures Referred By Contac t Referred To Contact Physical Therapy Diagnoses Hx of total knee arthroplasty, left Hx of total knee arthroplasty, right New Mcclure MD [address] [place] [phone] Referral ID Status Reason Start Date Expiration Date V isits Requested Visits Authorized [id number] New Request 11/28/2024 12/23/2025 1 1 Specialty Diagnoses / Procedures Referred By Contac t Referred To Contact Diagnoses Hx of total knee arthroplasty, right Procedures XR KNEE RIGHT 1-2 VIEWS XR KNEE RIGHT 3 VIEWS New Mcclure MD [address] [place] [phone] Referral ID Status Reason Start Date Expiration Date V isits Requested Visits Authorized [id number] New Request 11/26/2024 12/21/2025 1 1 Referral ID Status Reason Start Date Expiration Date V isits Requested Visits Authorized [id number] New Request 11/26/2024 12/21/2025 1 1 Instructions * Patient Instructions - Everton Ball RN - 10/13/2018 12:21 PM EST Formatting of this note may be different from the original. Genoveva from Dr Mcclure's office will call you for your arrival time, 1-2 business days before your scheduled surgery. Please review your surgery checklist and bring your Guide or binder the day of surgery. Pre-Admission Testing Dept. [phone] Call if you have any changes in [...] of surgery LAST DOSE: DATE TIME Biotin 67798 MCG Tab take 2 tablets by mouth [...] LAST DOSE: DATE TIME Hydroxychloroquine Sulfate (HYDROXYCHLOROQUINE, [id number],) 200 MG Tab Take 200 mg by [...] Patient reports feeling ready to go [facility] later today Cognitive Status Examination [...] reach Communication Patient to discharge to [facility] later today Transfer Skill: Sit To Stand, Rehab Eval [place] (Sit-Stand Transfers) supervision Physical Assist/Nonphysical Assist: Sit/Stand 1 person assist Weight-Bearing Restrictions: Sit/Stand toe touch weight-bearing Assistive Device For Transfer: Sit/Stand 2 wheeled walker Gait Skills, PT Eval Level of [place]: Gait stand-by assist Weight-Bearing Restrictions: Gait toe touch weight-bearing Assistive Device For Transfer: Gait 2 wheeled walker Gait Distance other (see comments) (60 ft) Gait Analysis, PT Eval Gait Pattern Used swing-to gait Stair Negotiation Level of [place]: Stair Negotiation unable to perform Clinical Impression [...] training. Maintain frequency yes * Maryam Zapata RP,PharmD - 11/24/2018 1:26 PM EST Apixaban (Eliquis) Patient Education / Transition of Care PATIENT: Danyelle Haskins Room/Bed: [facility] Apixaban (Eliquis) Education Patient was [...] should be reported to their physicianor health day care worker as soon as possible. I also advised the patient to provide an updated medication list to all health care team coordinator scheduler as certain medications can interact with apixaban. Patient verbally acknowledged an understanding of the information provided. Please contact pharmacyif there are any questions. Signed: Maryam Zapata RP,PharmD, [facility] Phone: [phone] Date/Time: 11/24/2018 1:26 PM * Krystal Bravo, [...] UE exercises Therapist Information License # [id number] * Tanvi Hernandez, H[employer]ORER - 11/23/2018 1:43 PM EST Formatting of this note may be different from the original. DAILY PROGRESS NOTE Date of Evaluation: 11/23/18 1:44 PM [facility] LOS: 2 days SUBJECTIVE: Patient seen [...] left TKA POD#2 PT OT social media developer discharge planning DVT prophylaxis Eliquis PT OT SS for dc planning- will likely discharge next 24-48 hours to [facility] GI/DVT prophylaxis with protonix and SCD and [...] assessment and plan and agree with the H[employer] PR[employer] LABORER findings and plan of care as documented. I agree with their findings and plan with any exceptions or additions noted below. Doing well today. Principal Problem: Pain in left knee Active Problems: Obesity: body mass index of 30.0-34.9 Benign hypertension Rheumatoid arthritis GERD (gastroesophageal reflux disease) Synovial hernia * Demarcus Hutchison PTA - 11/23/2018 11:39 AM EST Formatting of [...] like knee brace had slid down leg. [employer] W[employer]ER began with readjusting knee brace in proper [...] Transfer Skill: Sit To Stand, Rehab Eval [place] (Sit-Stand Transfers) contact guard Physical Assist/Nonphysical Assist: Sit/Stand 1 person assist Weight-Bearing Restrictions: Sit/Stand toe touch weight-bearing Assistive Device For Transfer: Sit/Stand 2 wheeled walker Gait Skills, PT Eval Level of [place]: Gait contact guard Weight-Bearing Restrictions: Gait toe [...] device on. Impression: status post TKA ext [facility] recon PLAN: 1. PT/OT 2. DVT prophylaxis 3. Discharge planning * Demarcus Hutchison PTA - 11/22/2018 4:07 PM EST Formatting of [...] Transfer Skill: Sit To Stand, Rehab Eval [place] (Sit-Stand Transfers) contact guard Physical Assist/Nonphysical Assist: Sit/Stand 1 person assist Weight-Bearing Restrictions: Sit/Stand toe touch weight-bearing (pt using NWB on L LE) Assistive Device For Transfer: Sit/Stand 2 wheeled walker Gait Skills, PT Eval Level of [place]: Gait contact guard Weight-Bearing Restrictions: Gait toe touch weight-bearing (Pt using NWB on L LE) Assistive Device For Transfer: Gait 2 wheeled walker Gait Distance (20ft, 20ft) Gait Analysis, PT Eval Gait Pattern Used swing-to gait Plan Plan for next visit Plan to continue with strengthening and transfers/gait Maintain frequency yes * Aurora Arroyo LSW - 11/22/2018 12:52 PM EST Call received from [facility] stating they can take patient anytime on Tuesday afternoon or after. * Demarcus Hutchison, TANIA - 11/22/2018 11:56 AM EST Formatting of [...] Transfer Skill: Sit To Stand, Rehab Eval [place] (Sit-Stand Transfers) contact guard Physical Assist/Nonphysical Assist: Sit/Stand 1 person assist Weight-Bearing Restrictions: Sit/Stand toe touch weight-bearing (NWB on L LE) Assistive Device For Transfer: Sit/Stand 2 wheeled walker Gait Skills, PT Eval Level of [place]: Gait contact guard Weight-Bearing Restrictions: Gait toe touch weight-bearing (pt using NWB on L LE) Assistive Device For Transfer: Gait 2 wheeled walker Gait Distance 25 feet Gait Analysis, PT Eval Gait Pattern Used swing-to gait Plan Plan for next visit Plan to continue with strengthening, transfers/gait, and practice car transfer Maintain frequency yes * Jacey Valdez, NIURKA-HOT PLATE PLYWOOD PRESS LABORER - 11/22/2018 10:52 AM EST Formatting of this note may be different from the original. DAILY PROGRESS NOTE Date of Evaluation: 11/22/18 10:53 AM [facility] LOS: 1 day SUBJECTIVE: Patient seen [...] left TKA POD#1 PT OT social media developer discharge planning DVT prophylaxis Eliquis PT OT SS for dc planning GI/DVT prophylaxis with protonix and SCD and Eliquis Associated attestation - Brady Lozoya MD - 11/22/2018 4:50 PM EST Danyelle Haskins was personally seen and examined. I agree with the examination, assessment, and plan as described below by the INSURANCE DEFENSE PARALEGAL with the following additions/exceptions: Feeling well today. [...] Continue with post operative care. * Rajinder Green APRN-MARTY - 11/22/2018 8:52 AM EST Formatting [...] plans; post hospital: SEE SS NOTES * ApolinarVahe westina - 11/22/2018 8:43 AM [facility]UND [facility] met with patient on this date to discuss discharge plans. Patient explained that she is currently living alone in a single story home. Patient stated that she does not have any children, but she does have family in the area that is helpful and supportive. Patient states that she is currently employed at [employer] in [place]. She stated that prior to the surgery she was completely independent and able to cook, clean and drive. Patient states that her goal upon discharge it to go to an extended care facility to get more therapy for her knee and regain her strength. Patient stated that she wanted to go to [facility] as it is close to her home. Patient reviewed and signed the Area Nursing facility list for [facility]. CM to make referral. CM to follow. [...] 0 Equipment Available wheeled walker;shower chair;elevated toilet seat;brakeshoe repairer;sock-aid;long-handled shoe horn;hand held shower hose Cognitive Status Examination Orientation Status (Cognition) oriented x 4 Level of Consciousness alert Able to Follow Commands (Communication) WNL Personal Safety and Judgment intact Short Term Memory intact Lens Cementer Memory intact Vision (check all that apply) Vision prescription glasses Sensory Examination Sensory Examination WFL (numbness in bilateral LE at baseline) Range of Motion (ROM) Range of Motion Examination bilateral upper extremity ROM was WFL Bed Mobility Skill: Supine to Sit, Rehab Eval Level of [place]: Supine/Sit stand-by assist Physical Assist/Nonphysical Assist: Supine/Sit 1 person assist Transfer Skill: Sit to Stand, Rehab Eval Level of [place]: Sit/Stand contact guard Physical Assist/Nonphysical Assist: Sit/Stand 1 person assist Weight-Bearing Restrictions: Sit/Stand toe touch weight-bearing Assistive Device for Transfer: Sit/Stand wheeled walker Upper Body Dressing Level of [place] (set up) Lower Body Dressing Level of [place] moderate assist (50% patients effort) Physical Assist/Nonphysical Assist 1 person assist Assistive Device brakeshoe repairer General Therapy Interventions Planned Therapy Interventions (OT [...] Impairment in Daily Activity - CH CURRENT [facility] Daily Activity Inpatient Short Form Putting [...] yes Goals Goals For Discharge discharge to [facility] Discussed risk / benefits with patient Therapist Recommendations At Discharge Recommendations OT Services recommended at Discharge Plan Plan Narrative continue with bathing, dressing and transfer training Therapist Information License # [id number] 1. Pt will complete LB dressing min [...] (Adult, OB, Peds) Pain Location knee, left (10) Pain Management Interventions positioning;declines intervention Cognitive Status [...] Supine to Sit, Rehab Eval Level of [place]: Supine/Sit stand-by assist Transfer Skill: Sit To Stand, Rehab Eval [place] (Sit-Stand Transfers) minimum assist (75% patient effort) Weight-Bearing Restrictions: Sit/Stand toe touch weight-bearing Assistive Device For Transfer: Sit/Stand 2 wheeled walker Gait Skills, PT Eval Level of [place]: Gait contact guard Weight-Bearing Restrictions: Gait toe [...] swelling, and pt reports understanding. PRIOR LEVEL [facility] Basic Mobility Inpatient Short Form Turning over in bed 4 - No Assistance Sitting/standing from chair 4 - No Assistance Moving from lying on back to sitting 4 - No Assistance Moving to and from bed to chair 4 - No Assistance Walk in hospital room 4 - No Assistance Climbing 3-5 steps with a railing 4 - No Assistance PRIOR LEVEL [facility] Mobility Raw Score 24 PRIOR LEVEL [facility] Mobility Functional Limitation/Modifier 0.00% Prior Functional Impairment in Basic Mobility - CH CURRENT [facility] Basic Mobility Inpatient Short Form Turning over [...] 2 - A Lot of Assistance CURRENT [facility] Mobility Raw Score 17 CURRENT [facility] Mobility Functional Limitation/Modifier 50.57% Currently Impaired in Basic Mobility - CK Projected AM-PAC Mobility Raw Score 20 Projected AM-PAC Mobility Functional Limitation/Modifier 35.83% Projected Functional Impairment [...] as able. Therapist Information [place] # [id number] PT Goals: 1. Pt will demonstrate understanding [...] ILLNESS: Danyelle is an established patient of [facility]. She is here today for followup. She [...] per her previous regimen prescribed by her lockstitch collar setter. I will leave this up to the house physician at the [facility], where she is residing today. [...] and concerns were addressed to her satisfaction. (DOC:[id number]) Procedures I have reviewed the findings of the clinical administrative support assistant and agree with their assessment. [facility] Nurse Established Patient Intake Room#: 4 Date: 12/14/2018 2:47 PM Patient: Danyelle Haskins MR#: [id number] : 1955 Age: 63 y.o. 3 wk [...] CATARACT W/ IMPLANT (ECCE IOL) Bilateral 2017 [facility] TREATMENT OPEN PATELLAR FX W/ INTERNAL FIXATION [...] mouth 3 times daily as needed. Biotin 72201 MCG Tab take 2 tablets by mouth [...] as needed. , Disp: , Rfl: Biotin 11621 MCG Tab, take 2 tablets by mouth [...] 12/14/2018 2:47 PM Patient: Danyelle Haskins MR#: [id number] : 1955 Age: 63 y.o. 3 wk [...] CATARACT W/ IMPLANT (ECCE IOL) Bilateral 2017 [facility] TREATMENT OPEN PATELLAR FX W/ INTERNAL FIXATION [...] mouth 3 times daily as needed. Biotin 46939 MCG Tab take 2 tablets by mouth [...] as needed. , Disp: , Rfl: Biotin 93307 MCG Tab, take 2 tablets by mouth [...] have reviewed the findings of the clinical administrative support assistant and agree with their assessment. New Mcclure MD Ortho Nurse Established Patient Intake Room#: 3 Date: 03/01/2019 2:16 PM Patient: Danyelle Haskins MR#: [id number] : 1955 Age: 63 y.o. 6wk F/U [...] CATARACT W/ IMPLANT (ECCE IOL) Bilateral 2017 [facility] TREATMENT OPEN PATELLAR FX W/ INTERNAL FIXATION [...] mouth 3 times daily as needed. Biotin 32739 MCG Tab take 2 tablets by mouth [...] as needed. , Disp: , Rfl: Biotin 61164 MCG Tab, take 2 tablets by mouth [...] 03/01/2019 2:16 PM Patient: Danyelle Haskins MR#: [id number] : 1955 Age: 63 y.o. 6wk F/U [...] CATARACT W/ IMPLANT (ECCE IOL) Bilateral 2018 [facility] TREATMENT OPEN PATELLAR FX W/ INTERNAL FIXATION [...] mouth 3 times daily as needed. Biotin 16209 MCG Tab take 2 tablets by mouth [...] as needed. , Disp: , Rfl: Biotin 09544 MCG Tab, take 2 tablets by mouth [...] Dictation on: 04/18/2019 4:59 PM by: NEW CMCLURE [[id number]] I have reviewed the findings of the clinical administrative support assistant and agree with their assessment. New Mcclure MD Ortho Nurse Established Patient Intake Room#: 4 F/U Right hip, feeling better, pain of 5-6 when doing steps, done with PT; Left TKA 11-21-18, last PT was yesterday, pain of 1-2 Date: 04/18/2019 4:31 PM Patient: Danyelle Haskins MR#: [id number] : 1955 Age: 63 y.o. Referring Physician: [...] CATARACT W/ IMPLANT (ECCE IOL) Bilateral 2017 [facility] TREATMENT OPEN PATELLAR FX W/ INTERNAL FIXATION [...] mouth 3 times daily as needed. Biotin 41279 MCG Tab take 2 tablets by mouth [...] as needed. , Disp: , Rfl: Biotin 77231 MCG Tab, take 2 tablets by mouth [...] 04/18/2019 4:31 PM Patient: Danyelle Haskins MR#: [id number] : 1955 Age: 63 y.o. Referring Physician: [...] Intact) (04/18/191628) Pain Location: knee, left;hip, right (06/12/19 1629) Select Pain Scale: DVPRS (Defense and Veterans Pain Rating Scale) (Adult- Cognitively Intact) (04/18/19 1620) Recent Labs No results found for: CRP [...] CATARACT W/ IMPLANT (ECCE IOL) Bilateral 2017 [facility] TREATMENT OPEN PATELLAR FX W/ INTERNAL FIXATION [...] mouth 3 times daily as needed. Biotin 99479 MCG Tab take 2 tablets by mouth [...] as needed. , Disp: , Rfl: Biotin 01338 MCG Tab, take 2 tablets by mouth [...] of the right knee, which demonstrate knee, [id number] arthritis of the lateral compartment, and multiple [...] she like to proceed with surgical revision. (DOC:[id number]) LARGE JOINT INJECTION: R knee Date/Time: 11/21/2019 [...] have reviewed the findings of the clinical administrative support assistant and agree with their assessment. New Mcclure MD Ortho Nurse Established Patient Intake Room#: 3---1 year post-op check for left TKA . She has been doing well. Date: 11/21/2019 1:38 PM Patient: Danyelle Haskins MR#: [id number] : 1955 Age: 64 y.o. Referring Physician: [...] CATARACT W/ IMPLANT (ECCE IOL) Bilateral 2017 [facility] TREATMENT OPEN PATELLAR FX W/ INTERNAL FIXATION [...] mouth 3 times daily as needed. Biotin 74342 MCG Tab take 2 tablets by mouth [...] 11/21/2019 1:38 PM Patient: Danyelle Haskins MR#: [id number] : 1955 Age: 64 y.o. Referring Physician: [...] CATARACT W/ IMPLANT (ECCE IOL) Bilateral 2018 [facility] TREATMENT OPEN PATELLAR FX W/ INTERNAL FIXATION [...] mouth 3 times daily as needed. Biotin 74204 MCG Tab take 2 tablets by mouth [...] have reviewed the findings of the clinical administrative support assistant and agree with their assessment. Ortho Nurse Established Patient Intake Room#: 2 2 year Left TKA 11-21-18, pain of 2, cannot straighten her leg and it varinder, Amoxicillin was ordered today Date: 11/19/2020 2:31 PM Patient: Danyelle Haskins MR#: [id number] : 1955 Age: 65 y.o. Referring Physician: [...] CATARACT W/ IMPLANT (ECCE IOL) Bilateral 2018 [facility] TREATMENT OPEN PATELLAR FX W/ INTERNAL FIXATION [...] Take 500 mg by mouth daily. Biotin 92612 MCG Tab take 2 tablets by mouth 2 times daily.. Calcium Carb-Cholecalciferol (CALCIUM 600 + D) 600-200 MG-UNIT Tab tablet Take 2.5 tablets by mouthDaily (with lunch). Diclofenac Sodium 1 % Gel gel Diclofenac Diclofenac Sodium Active 4 GM Topical Four times daily October 01, 2020 10:38am 10-01-2020 [facility] ([id number]) ferrous sulfate 325 (65 Fe) MG Tab [...] by mouth daily., Disp: , Rfl: Biotin 49940 MCG Tab, take 2 tablets by mouth 2 times daily.. , Disp: , Rfl: Calcium Carb-Cholecalciferol (CALCIUM 600 + D) 600-200 MG-UNIT Tab tablet, Take 2.5 tablets by mouth Daily (with lunch). , Disp: , Rfl: Diclofenac Sodium 1 % Gel gel, Diclofenac Diclofenac Sodium Active 4 GM Topical Four times daily October 01, 2020 10:38am 10-01-2020 [facility] ([id number]), Disp: , Rfl: ferrous sulfate 325 (65 [...] 11/19/2020 2:31 PM Patient: Danyelle Haskins MR#: [id number] : 1955 Age: 65 y.o. Referring Physician: [...] CATARACT W/ IMPLANT (ECCE IOL) Bilateral 2017 [facility] TREATMENT OPEN PATELLAR FX W/ INTERNAL FIXATION [...] Take 500 mg by mouth daily. Biotin 62128 MCG Tab take 2 tablets by mouth 2 times daily.. Calcium Carb-Cholecalciferol (CALCIUM 600 + D) 600-200 MG-UNIT Tab tablet Take 2.5 tablets by mouthDaily (with lunch). Diclofenac Sodium 1 % Gel gel Diclofenac Diclofenac Sodium Active 4 GM Topical Four times daily October 01, 2020 10:38am 10-01-2020 [facility] ([id number]) ferrous sulfate 325 (65 Fe) MG Tab [...] by mouth daily., Disp: , Rfl: Biotin 08705 MCG Tab, take 2 tablets by mouth 2 times daily.. , Disp: , Rfl: Calcium Carb-Cholecalciferol (CALCIUM 600 + D) 600-200 MG-UNIT Tab tablet, Take 2.5 tablets by mouth Daily (with lunch). , Disp: , Rfl: Diclofenac Sodium 1 % Gel gel, Diclofenac Diclofenac Sodium Active 4 GM Topical Four times daily October 01, 2020 10:38am 10-01-2020 [facility] ([id number]), Disp: , Rfl: ferrous sulfate 325 (65 [...] have reviewed the findings of the clinical administrative support assistant and agree with their assessment. New Mcclure MD Ortho Nurse Established Patient Intake Room#: 3 6 week F/U left knee ext mechanism repair, no C/O pain Date: 01/03/2019 3:26 PM Patient: Danyelle Haskins MR#: [id number] : 1955 Age: 63 y.o. Referring Physician: [...] CATARACT W/ IMPLANT (ECCE IOL) Bilateral 2018 [facility] TREATMENT OPEN PATELLAR FX W/ INTERNAL FIXATION [...] mouth 3 times daily as needed. Biotin 34435 MCG Tab take 2 tablets by mouth [...] as needed. , Disp: , Rfl: Biotin 06575 MCG Tab, take 2 tablets by mouth [...] 01/03/2019 3:26 PM Patient: Danyelle Haskins MR#: [id number] : 1955 Age: 63 y.o. Referring Physician: [...] CATARACT W/ IMPLANT (ECCE IOL) Bilateral 2018 [facility] TREATMENT OPEN PATELLAR FX W/ INTERNAL FIXATION [...] mouth 3 times daily as needed. Biotin 30831 MCG Tab take 2 tablets by mouth [...] as needed. , Disp: , Rfl: Biotin 18167 MCG Tab, take 2 tablets by mouth [...] left- Primary Hospital Course * Tanvi Hernandez, MARTY - 11/24/2018 11:21 AM EST Formatting of this note may be different from the original. Discharge Summary Name: Danyelle Haskins Age: 63 y.o. Birthday: 1955 Admit Date: 11/21/2018 8:19 AM Discharge Date: 11/24/2018 Brief Summary of Hospital Course: Pain in left knee S/p left TKA POD#3 PT OT social media developer discharge planning DVT prophylaxis Kandisquis Will dc [...] % LIQD Commonly known as: HIBICLENS hydroxychloroquine ([id number]) 200 MG TABS leflunomide 20 MG TABS [...] as needed. Commonly known as: LIORESAL Biotin 37935 MCG TABS take 2 tablets by mouth [...] as tolerated. Discharge Follow-up: New Mcclure MD [address] [id number] In 3 weeks Discharge Disposition: Patient will be discharged in stable condition. Discharge Time: Including assessment, planning, and medication reconciliation was greater than 35 min. Tanvi Hernandez DNP completing Discharge Summary for Dr. Vance Please note Portions of this note utilized LikeList dictation software, please excuse any typographical or [...] your incision. You will remove this dressing 1-22-19 Manda morning. Gently peel back the dressing while [...] be removed by a nurse at the [facility] 10-14 days after surgery. Your surgery d [...] - 11/24/2018 5:16 PM EST Contact Office ([phone]) if: > Total Knee ROM < 90 [...] Care Everywhere. * Acetaminophen tablets or caplets (Nigerian) * Apixaban oral tablets (Nigerian) * Docusate capsules (Nigerian) * Oxycodone tablets or capsules (Nigerian) in this encounter Chief Complaint and Reason for Visit Chief Complaint Admit Date 4 month f/u May 01, 2025 9:33 am EMG BLE per SC June 26, 2025 1: 24pm Reason for Visit Admit Date Blepharospasm May 01, 2025 9:33 am Carpal tunnel syndrome, bilateral April 082024 9:33am DDD (degenerative disc disease), lumbar May 01, 2025 9:33am Facet arthritis of lumbar region May 012024 9:33am Polyneuropathy May 01, 2025 9:33 am Spinal stenosis of lumbar region May 012024 9:33am Chief Complaint Admit Date 4 month f/u May 01, 2025 9:33 am Chief Complaint Admit Date 4 month f/u May 01, 2025 9:33 am EMG BLE per SC June 26, 2025 1: 24pm Follow up 3 month July 17, 2025 10:38am Reason for Visit Admit Date Blepharospasm May 01, 2025 9:33 am Carpal tunnel syndrome, bilateral April 082024 9:33am DDD (degenerative disc disease), lumbar May 01, 2025 9:33am Facet arthritis of lumbar region May 012024 9:33am Polyneuropathy May 01, 2025 9:33 am Spinal stenosis of lumbar region May 012024 9:33am Blepharospasm July 17, 2025 10:38am Carpal tunnel syndrome, bilateral Septem jennifer 2024 10:38am Polyneuropathy July 17, 2025 10:38am Spinal stenosis of lumbar region Septemb er 2024 10:38am Chief Complaint Admit Date 4 month f/u May 01, 2025 9:33 am EMG BLE per SC June 26, 2025 1: 24pm Follow up 3 month July 17, 2025 10:38am FACET - R L4/5 & L5/SI-- NPCR; Medicare/ Supplement July 23, 2025 9:39am Reason for Visit Admit Date Blepharospasm May 01, 2025 9:33 am Carpal tunnel syndrome, bilateral April 082024 9:33am DDD (degenerative disc disease), lumbar May 01, 2025 9:33am Facet arthritis of lumbar region May 012024 9:33am Polyneuropathy May 01, 2025 9:33 am Spinal stenosis of lumbar region May 012024 9:33am Facet arthropathy, lumbar July 10:38am Blepharospasm July 17, 2025 10:38am Carpal tunnel syndrome, bilateral Septem jennifer 2024 10:38am Polyneuropathy July 17, 2025 10:38am Spinal stenosis of lumbar region Septemb er 2024 10:38am Additional Source Comments INFORMATION SOURCE (unrecogn ized section and content) DATE CREATED AUTHOR 05/02/2018 [facility] DATE CREATED AUTHOR AUTHOR'S ORGANIZ ATION 05/02/2018 [facility] DATE CREATED AUTHOR AUTHOR'S ORGANIZ ATION 05/05/2018 [facility] DATE CREATED AUTHOR AUTHOR'S ORGANIZ ATION 03/22/2020 [facility] DATE CREATED AUTHOR AUTHOR'S ORGANIZ ATION 02/01/2022 [facility] DATE CREATED AUTHOR AUTHOR'S ORGANIZ ATION 02/13/2023 [facility] DATE CREATED AUTHOR AUTHOR'S ORGANIZ ATION 07/09/2023 [facility] DATE CREATED AUTHOR AUTHOR'S ORGANIZ ATION 11/30/2024 [facility] DATE CREATED AUTHOR AUTHOR'S ORGANIZ ATION 06/21/2025 [facility] EPIC Reason for Visit (unrecogniz ed section and content) Reason Comments Preoperative Nurse Assessment Surgery sc heduled 11/21/18 Status Reason Specialty Diagnoses / Procedures Referre d By Contact Referred To Contact Diagnoses 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] New Mcclure MD [address] [place] [id number] Status Reason Specialty Diagnoses / Procedures Referred By Contact Referred To Contact New Request Diagnoses Hx of total knee arthroplasty, left Procedures XR KNEE LEFT 2 VIEWS XR KNEE LEFT 3 VIEWS Rajinder Green, TIRE DESIGN ENGINEER-MARTY [address] [place] [address] Reason Comments Post Op Visit Reason Comments Leg Swelling Reason Comments Follow-up Post Op Visit Status Reason Specialty Diagnoses / Procedures Referred By Contact Referred To Contact New Request Diagnoses Left knee pain, unspecified chronicity Procedures XR KNEE LEFT 2 VIEWS XR KNEE LEFT 3 VIEWS New Mcclure MD [address] [place] [id number] Reason Comments Follow-up Status Reason Specialty Diagnoses / Procedures Referred By Contact Referred To Contact Pending Review Diagnoses History of total knee arthroplasty, left Procedures XR KNEE LEFT 3 VIEWS New Mcclure MD [address] [place] [address] Reason Comments Post Op Visit Reason Comments Follow-up Reason Comments Skin Problem Status Reason Specialty Diagnoses / Procedures Referred By Contact Referred To Contact New Request Diagnoses Hx of total knee arthroplasty, left Procedures XR KNEE LEFT 3 VIEWS New Mcclure MD [address] [place] [address] 09762 Status Reason Specialty Diagnoses / Procedures Referred By Contact Referred To Contact New Request Diagnoses Right hip pain Procedures XR HIP WITH PELVIS RIGHT New Mcclure MD [address] [place] [address] Reason Comments Follow-up Specialty Diagnoses / Procedures Referred By Contac t Referred To Contact Diagnoses Hx of total knee arthroplasty, right Procedures XR KNEE RIGHT 3 VIEWS Rajinder Green, TIRE DESIGN ENGINEER-MARTY [address] [place] [phone] Referral ID Status Reason Start Date Expiration Date V isits Requested Visits Authorized [id number] New Request 05/11/2023 06/04/2024 1 1 Specialty Diagnoses / Procedures Referred By Contac t Referred To Contact Diagnoses Hx of total knee arthroplasty, right Procedures XR BONE LENGTH STUDY New Mcclure MD [address] [place] [phone] Referral ID Status Reason Start Date Expiration Date V isits Requested Visits Authorized [id number] New Request 08/30/2023 09/23/2024 1 1 Reason Comments Pain Reason Comments Preoperative Assessment LTKA revision w/ poss extensor mechanism reconstruction 11/29 SAF Pg *PAT ONLY Specialty Diagnoses / Procedures Referred By Contac t Referred To Contact Diagnoses Preop testing Procedures PREPARE TO TRANSFUSE RED BLOOD CELLS New Mcclure MD [address] [place] [address] Referral ID Status Reason Start Date Expiration Date V isits Requested Visits Authorized [id number] New Request 11/01/2023 11/25/2024 1 1 Specialty Diagnoses / Procedures Referred By Contac t Referred To Contact Diagnoses Hx of total knee arthroplasty, left Procedures XR KNEE LEFT 1-2 VIEWS XR KNEE LEFT 3 VIEWS Rajinder Green, TIRE DESIGN ENGINEER-HOT PLATE [employer] PRESS LABORER [address] [place] [phone] Referral ID Status Reason Start Date Expiration Date V isits Requested Visits Authorized [id number] New Request 12/20/2023 01/13/2025 1 1 Specialty Diagnoses / Procedures Referred By Contac t Referred To Contact Diagnoses Right knee pain, unspecified chronicity Procedures XR KNEE RIGHT 3 VIEWS New Mcclure MD [address] [place] [address] Referral ID Status Reason Start Date Expiration Date V isits Requested Visits Authorized [id number] New Request 01/09/2024 02/02/2025 1 1 Reason Comments Pain Specialty Diagnoses / Procedures Referred By Contac t Referred To Contact Diagnoses Hx of total knee arthroplasty, left Procedures XR BONE LENGTH STUDY Rajinder Green, TIRE DESIGN ENGINEER-[address] [address] Referral ID Status Reason Start Date Expiration Date V isits Requested Visits Authorized [id number] New Request 02/21/2024 03/17/2025 1 1 Reason Comments Follow-up Reason Comments Follow-up 14d s/p I&d Reason Comments Toenail Care Non Dm Nails Reason Comments Back Pain Numbness Reason Comments Ingrown Toenail Rt gt ingrown Reason Comments Botulinum Toxin Injection Reason Onset Date Comments Rx 07/30/2024 Reason Comments Follow-up 14d s/p rt gt avulsi on Reason Comments Toenail Care Non dm nail care Specialty Diagnoses / Procedures Referred By Contac t Referred To Contact Diagnoses Hx of total knee arthroplasty, right Procedures XR KNEE RIGHT 1-2 VIEWS XR KNEE RIGHT 3 VIEWS New Mcclure MD [address] [place] [id number] Referral ID Status Reason Start Date Expiration Date V isits Requested Visits Authorized [id number] New Request 11/26/2024 12/21/2025 1 1 Reason Comments Numbness Back Pain Blepharospasm Reason Comments Foot Ulcer Callous infected, tu rned into ulcer Reason Comments Follow-up Lt 3rd cellulitis Reason Comments Follow-up Lt 3rd ulcer Reason Comments Post-op 1ST POST- LEFT PIPJ Reason Comments Post-op 14d s/p lt 3rd pipj Reason Comments Post-op 21d s/p lt 3rd pipj Reason Comments Post-op 5wk lt 3rd pipj Reason Onset Date Comments Med Refill 03/20/2025 Reason Comments Macular Degeneration Reason Comments Toenail Care Care Teams (unrecognized sec tion and content) Skip Hoist Engineer Relationship Specialty Start Date End Date Yulisa Batres MD [address] [facility] [place] [address] [place] [address] PCP - General Family Medicine 03/18/23 Skip Hoist Engineer Relationship Specialty Start Date End Date Yulisa Batres MD [address] [place] [address] PCP - General Family Medicine 03/18/23 Skip Hoist Engineer Relationship Specialty Start Date End Date Yulisa Batres MD [address] [place] [address] PCP - General Family Medicine 03/18/23 Skip Hoist Engineer Relationship Specialty Start Date End Date Yulisa Batres MD [address] [place] [address] PCP - General Family Medicine 03/18/23 Skip Hoist Engineer Relationship Specialty Start Date End Date Yulisa Batres MD [address] [facility] [place] [address] [place] [address] PCP - General Family Medicine 03/18/23 Skip Hoist Engineer Relationship Specialty Start Date End Date Yulisa Batres MD [address] [facility] [place] [address] [place] [address] PCP - General Family Medicine 03/18/23 Skip Hoist Engineer Relationship Specialty Start Date End Date Yulisa Batres MD [address] [facility] [place] [address] [place] [address] PCP - General Family Medicine 03/18/23 Skip Hoist Engineer Relationship Specialty Start Date End Date Yulisa Batres MD [address] [facility] [place] [address] [place] [address] PCP - General Family Medicine 03/18/23 Skip Hoist Engineer Relationship Specialty Start Date End Date Yulisa Batres MD [address] [facility] [place] [address] [place] [address] PCP - General Family Medicine 03/18/23 Skip Hoist Engineer Relationship Specialty Start Date End Date Yulisa Batres MD [address] [facility] [place] [address] [place] [address] PCP - General Family Medicine 03/18/23 Skip Hoist Engineer Relationship Specialty Start Date End Date Yulisa Batres MD [address] [facility] [place] [address] [place] [address] PCP - General Family Medicine 03/18/23 Skip Hoist Engineer Relationship Specialty Start Date End Date Yulisa Batres MD [address] [facility] [place] [address] [place] [address] PCP - General Family Medicine 03/18/23 Skip Hoist Engineer Relationship Specialty Start Date End Date Yulisa Batres MD [address] [facility] [place] [address] [place] [address] PCP - General Family Medicine 03/18/23 Skip Hoist Engineer Relationship Specialty Start Date End Date Yulisa Batres MD [address] [facility] [place] [address] [place] [address] PCP - General Family Medicine 03/18/23 Skip Hoist Engineer Relationship Specialty Start Date End Date Yulisa Batres MD [address] [place] [address] PCP - General 07/06/23 Gaby Christianson, HARPAL [address] [phone] Nurse Practitioner Neurology 01/26/24 Darren Monaco MD [address] [place] [address] Referring Physician Rheumatology 07/31/24 Skip Hoist Engineer Relationship Specialty Start Date End Date Yulisa Batres MD [address] [place] [address] PCP - General 07/06/23 Gaby Christianson NP [address] [phone] Nurse Practitioner Neurology 01/26/24 Darren Monaco MD [address] [facility] Professional [address] [place] [address] Referring Physician Rheumatology 07/31/24 Skip Hoist Engineer Relationship Specialty Start Date End Date Yulisa Batres MD [address] [place] [address] PCP - General 07/06/23 Gaby Christianson NP [address] [address] Nurse Practitioner Neurology 01/26/24 Darren Monaco MD [address] [facility] [address] Professional [address] [place] [address] Referring Physician Rheumatology 07/31/24 Skip Hoist Engineer Relationship Specialty Start Date End Date Yulisa Batres MD [address] [facility] [place] [address] PCP - General 07/06/23 Gaby Christianson NP [address] [phone] Nurse Practitioner Neurology 01/26/24 Skip Hoist Engineer Relationship Specialty Start Date End Date Yulisa Batres MD [address] [facility] [place] [address] PCP - General 07/06/23 Gaby Christianson, HARPAL [address] [phone] [phone] Nurse Practitioner Neurology 01/26/24 Skip Hoist Engineer Relationship Specialty Start Date End Date Yulisa Batres MD [address] [place] [address] PCP - General 07/06/23 Gaby Christianson, HARPAL [address] [address] Nurse Practitioner Neurology 01/26/24 Darren Monaco MD [address] [facility] [address] [place] [address] Referring Physician Rheumatology 07/31/24 Skip Hoist Engineer Relationship Specialty Start Date End Date Yulisa Batres MD [address] [facility] [place] [address] PCP - General 07/06/23 Gaby Christianson NP [address] [address] Nurse Practitioner Neurology 01/26/24 Darren Monaco MD [address] [place] [address] Referring Physician Rheumatology 07/31/24 Skip Hoist Engineer Relationship Specialty Start Date End Date Yulisa Batres MD [address] [place] [address] PCP - General 07/06/23 Gaby Christianson NP [address] [address] Nurse Practitioner Neurology 01/26/24 Darren Monaco MD [address] [place] [address] Referring Physician Rheumatology 07/31/24 Skip Hoist Engineer Relationship Specialty Start Date End Date Yulisa Batres MD [address] [place] [address] PCP - General 07/06/23 Gaby Christianson NP [address] [address] Nurse Practitioner Neurology 01/26/24 Darren Monaco MD [address] Professional [address] [place] [address] Referring Physician Rheumatology 07/31/24 Skip Hoist Engineer Relationship Specialty Start Date End Date Yulisa Batres MD [address] [facility] [place] [address] PCP - General 07/06/23 Gaby Christianson NP [address] [place] [address] Nurse Practitioner Neurology 01/26/24 Skip Hoist Engineer Relationship Specialty Start Date End Date Yulisa Batres MD [address] [facility] [place] [address] PCP - General 07/06/23 Gaby Christianson NP [address] [place] [address] [phone] Nurse Practitioner Neurology 01/26/24 Skip Hoist Engineer Relationship Specialty Start Date End Date Yulisa Batres MD [address] [facility] [place] [address] PCP - General 07/06/23 Gaby Christianson NP [address] [place] [address] Nurse Practitioner Neurology 01/26/24 Skip Hoist Engineer Relationship Specialty Start Date End Date Yulisa Batres MD [address] [facility] [place] [address] PCP - General 07/06/23 Gaby Christianson NP [address] [place] [address] [phone] Nurse Practitioner Neurology 01/26/24 Skip Hoist Engineer Relationship Specialty Start Date End Date Yulisa Batres MD [address] [facility] [place] [address] PCP - General 07/06/23 Gaby Christianson NP [address] [phone] Nurse Practitioner Neurology 01/26/24 Darren Monaco MD [address] [facility] Professional [address] [place] [address] Referring Physician Rheumatology 07/31/24 Skip Hoist Engineer Relationship Specialty Start Date End Date Yulisa Batres MD [address] [place] [address] PCP - General 07/06/23 Gaby Christianson NP [address] [phone] Nurse Practitioner Neurology 01/26/24 Skip Hoist Engineer Relationship Specialty Start Date End Date Yulisa Batres MD [address] [place] [address] PCP - General 07/06/23 Gaby Christianson NP [address] [address] Nurse Practitioner Neurology 01/26/24 Darren Monaco MD [address] [facility] Professional [address] [place] [address] Referring Physician Rheumatology 07/31/24 Skip Hoist Engineer Relationship Specialty Start Date End Date Yulisa Batres MD [address] [place] [address] PCP - General 07/06/23 Gaby Christianson NP [address] [phone] Nurse Practitioner Neurology 01/26/24 Darren Monaco MD [address] [facility] Professional [address] [place] [address] Referring Physician Rheumatology 07/31/24 Skip Hoist Engineer Relationship Specialty Start Date End Date Yulisa Batres MD [address] [place] [address] PCP - General Family Medicine 03/18/23 Skip Hoist Engineer Relationship Specialty Start Date End Date Yulisa Batres MD [address] [place] [address] PCP - General Family Medicine 03/18/23 Skip Hoist Engineer Relationship Specialty [place] [address] [place] [address] PCP - General 07/06/23 Gaby Christianson NP [address] [phone] Nurse Practitioner Neurology 01/26/24 Darren Monaco MD [address] [facility] Professional [address] [place] [address] Referring Physician Rheumatology 07/31/24 Skip Hoist Engineer Relationship Specialty Start Date End Date Yulisa Batres MD [address] [place] [address] PCP - General 07/06/23 Gaby Christianson NP [address] [phone] Nurse Practitioner Neurology 01/26/24 Darren Monaco MD [address] Professional [address] [place] [address] Referring Physician Rheumatology 07/31/24 Skip Hoist Engineer Relationship Specialty Start Date End Date Yulisa Batres MD [address] [place] [address] PCP - General 07/06/23 Gaby Christianson NP [address] [address] Nurse Practitioner Neurology 01/26/24 Darren Monaco MD [address] [place] [address] Referring Physician Rheumatology 07/31/24 Skip Hoist Engineer Relationship Specialty Start Date End Date Yulisa Batres MD PCP - General 07/06/23 Gaby Christianson NP [address] [phone] Nurse Practitioner Neurology 01/26/24 Darren Monaco MD [address] Professional [address] [place] [address] Referring Physician Rheumatology 07/31/24 Skip Hoist Engineer Relationship Specialty Start Date End Date Yulisa Batres MD PCP - General 07/06/23 Gaby Christianson NP [address] [address] Nurse Practitioner Neurology 01/26/24 Darren Monaco MD [address] Professional [address] [place] [address] Referring Physician Rheumatology 07/31/24 Skip Hoist Engineer Relationship Specialty Start Date End Date Yulisa Batres MD PCP - General 07/06/23 Gaby Christianson NP [address] [place] [address] Nurse Practitioner Neurology 01/26/24 Darren Monaco MD [address] [facility] Professional [address] [place] [address] Referring Physician Rheumatology 07/31/24 Team Status: Active Member Role Status Dates Yulisa Batres MD Primary Care Provider Active Team Status: Inactive Member Role Status Dates Yulisa Batres MD Primary Care Provider Active Start: May 01, 2025 End: May 01, 2025 Gaby Christianson APRN-QUARRY BOSS-C Attending Provider Active Start: May 01, 2025 End: May 01, 2025 Skip Hoist Engineer Relationship Specialty Start Date End Date Yulisa Batres MD PCP - General 07/06/23 Gaby Christianson NP Nurse Practitioner Neurology 01/26/24 Darren Monaco MD [address] [place] [address] Referring Physician Rheumatology 07/31/24 Skip Hoist Engineer Relationship Specialty Start Date End Date Yulisa Batres MD PCP - General 07/06/23 Gaby Christianson NP Nurse Practitioner Neurology 01/26/24 Darren Monaco MD [address] [place] [address] Referring Physician Rheumatology 07/31/24 Team Status: Inactive Member Role Status Dates Yulisa Batres MD Primary Care Provider Active Start: June 13, 2025 End: June 13, 2025 Magalie Kaufman DO Attending Provider Active Sta rt: June 13, 2025 End: June 13, 2025 Skip Hoist Engineer Relationship Specialty Start Date End Date Yulisa Batres MD [address] [place] [address] PCP - General 07/06/23 Gaby Christianson NP [address] [place] [phone] Nurse Practitioner Neurology 01/26/24 Darren Monaco MD [address] [facility] [address] Professional building [address] [place] [phone] Referring Physician Rheumatology 07/31/24 Skip Hoist Engineer Relationship Specialty Start Date End Date Yulisa Batres MD [address] [place] [address] PCP - General 07/06/23 Gaby Christianson NP [address] [place] [address] Nurse Practitioner Neurology 01/26/24 Darren Monaco MD [address] [place] [address] Referring Physician Rheumatology 07/31/24 Team Status: Inactive Member Role Status Dates Yulisa Batres MD Primary Care Provider Active Start: June 26, 2025 End: June 26, 2025 Shante Montenegro DO Attending Provider Active Start: June 26, 2025 End: June 26, 2025 Team Status: Inactive Member Role Status Alex Batres MD Primary Care Provider Active Start: July 17, 2025 End: July 17, 2025 Shante Montenegro DO Attending Provider Active Start: July 17, 2025 End: July 17, 2025 Team Status: Inactive Member Role Status Alex Batres MD Primary Care Provider Active Start: July 23, 2025 End: July 23, 2025 Shante Montenegro DO Attending Provider Active Start: July 23, 2025 End: July 23, 2025 Goals (unrecognized section and content) Goals may [...] BE BASED ON THE PRIMARY CLINICAL RECORDS. [facility] [employer] [facility]. provides no warranty or guarantee of the accuracy or completeness of information in this document.
== END 2025-08-15 11:14 | disposition home or self-care (01) ==
PROVIDERS: PCP Family Medicine; Visit Provider Registered Nurse
DX: E55.9 Vitamin D deficiency, unspecified (principal)
CPT/HCPCS: 36415; 82306

== ENCOUNTER 2025-08-15 11:15 | Outpatient (OUT) | payer MEDICARE, BC, SELFPAY ==
--- OUTSIDE RECORDS SUMMARY | 2025-08-15 11:28 | XMS_ITS | CCD ---
Author Organization [facility] Care Team Providers Care Fashion Stylist Name Role Phone Wood, Star A Unavailable Unavailable Wood, Star A Unavailable Unavailable Wood, Stra A Unavailable Unavailable Wood, Star A Unavailable Unavailable FOSTER, NEW Unavailable Unavailable FOSTER, NEW Unavailable Unavailable BROWN, STEPHEN Rashmi Unavailable Unavailable ARLYN VANCE Unavailable Unavailable FOSTER, NEW Unavailable Unavailable DAYRON ZAVALA Unavailable Unavailable Salomón Gonzalez Unavailable Salomón Gonzalez Primary Care Provider Salomón Gonzalez Primary Care Provider Salomón Gonzalez DO Primary Care Provider Stephen [...] DR MÁRQUEZ Primary Care Unavailable MONACO, DR BAKNS Consulting Unavailable MONACO, DR BANKS Admitting Unavailable MONACO, DR BANKS Attending Unavailable HOY ., DR MÁRQUEZ Primary Care Unavailable HOY ., DR MÁRQUEZ Admitting Unavailable HOY ., DR MÁRQUEZ Attending Unavailable HOY ., DR MÁRQUEZ Consulting Unavailable HOY ., DR MÁRQUEZ Primary Care Unavailable YADIRA, DR CHARO Charles Consulting Unavailable Yulisa Batres MD Primary Care Provider [phone] Yulisa Batres MD Primary Care Provider [phone] Mal, Mary Admitting Unavailable Mal, Mary Attending Unavailable Hoy, Yulisa M Primary Care Unavailable Darren Monaco Referring Unavailable Yulisa Batres MD Primary Care Provider [phone] Sammy RACECOURSE BARRIER ATTENDANT, Gaby Unavailable Juan Ramon OCONNELL, Darren Chatman [...] Unavailable Yulisa Batres MD Primary Care Provider [phone] Yulisa Batres MD Primary Care Provider [phone] Sammy MECHANICAL FACILITIES TECHNICIAN-JUNIOR SOFTWARE ENGINEER-C, Gaby Chatman Attending Provider Sammy RACECOURSE BARRIER ATTENDANT, Gaby Unavailable Unavailable Magalie Kaufman DO Attending Provider [phone] Yulisa Batres MD Primary Care Provider [phone] Sammy RACECOURSE BARRIER ATTENDANT, Gaby Unavailable Unavailable SAMMY, GABY Attending Unavailable [...] Attending Unavailable Shante Montenegro DO Attending Provider Allergies Allergy Classification Reported Allergen(s) Allergy Type Date of Onset Reaction(s) Facility Alendronate (1 source) Alendronate Drug Allergy 08-30-2 018 Abdominal Discomfort, Dyspepsia [facility] Anti-Epileptic Agents (3 sources) gabapentin Drug Allergy 08-30-2 018 Nausea and Vomiting, Blisters [facility] Sulfamethoxazole / Trimethoprim (1 source) Sulfamethoxazole / Trimethoprim Drug Allergy 021 Myalgia [facility] (20 sources) Alendronate Drug Allergy 08-29-2 018 Abdominal Discomfort, Dyspepsia, Rash [facility] Work Phone: (20 sources) gabapentin Drug Allergy 08-30-2 018 Nausea and Vomiting, Nausea Only, Rash [facility] Work Phone: (20 sources) gabapentin Drug Allergy 08-30-2 018 Blisters [facility] Work Phone: (20 sources) OXcarbazepine Drug Allergy Nausea and Vomiting [facility] Work Phone: (20 sources) Ciprofloxacin Drug Allergy Unknown, Unknown [facility] ([facility] levoFLOXacin Drug Allergy Unknown, Unknown Reaction [facility] [employer] Other (20 sources) Sulfamethoxazole / Trimethoprim Drug Allergy Myalgia [facility] [employer] Other (1 source) Alendronate Drug Allergy [facility] (1 source) gabapentin Drug Allergy [facility] (1 source) gabapentin Drug Allergy [facility] (1 source) OXcarbazepine Drug Allergy [facility] (7 sources) Alendronate; Translations: [alendronate sodium] Drug Allergy Unknown Reaction [facility] (13 sources) Sulfamethoxazole; Translations: [sulfamethoxazole] Drug Allergy Weakness [facility] (13 sources) Trimethoprim; Translations: [trimethoprim] Drug Allergy Weakness [facility] (1 source) Ciprofloxacin Drug Allergy [facility] Rep[facility] (1 source) gabapentin Drug Allergy [facility] (1 source) OXcarbazepine Drug Allergy [facility] (20 sources) Oxcarbazepine Propensity to adverse reactions to drug Nausea and Vomiting, Rash [facility] Medications Current Medications Medication Drug Class(es) Dates [...] therapy Start: 10-01-2020 take 1 capsule by [facility] twice daily Biotin 10,000 mcg Capsule Active 40341 MCG PO Twice daily October 01, 2020 1:00am Complies with drug therapy take 2 capsules by outh in the morning biotin 1 MG capsule Take 2 mg by mouth in the morning. Active Biotin 1 MG caps ule Take by mouth daily. Active take 2 tablets by [facility] twice daily Biotin 27055 MCG Tab Take 2 tablets by mouth [...] 1 07/01/2018 Active D-BIOTIN (18 sources) Biotin 40273 MCG Tab take 2 tablets by mouth 2 times daily.. 0 Active Biotin 34947 MCG Tab take 2 tablets by mouth [...] October 01, 2020 10:38am 10-01-2020 [facility] ([id number]) 10/01/2020 Active Start: 10-01-2020 Diclofenac Sod ium 1 % Gel gel Diclofenac Diclofenac Sodium Active 4 GM Topical Four times daily October 01, 2020 10:38am 10-01-2020 [facility] ([id number]) 0 10/01/2020 Active Start: 10-01-2020 apply 4 [...] Active docusate sodium 50 mg / sennosides, senior [facility] 8.6 mg oral tablet (1 source) Start: [...] capsule Take by mouth daily. 0 Active Ocrogztfaea-Ymf-Lbbfnkgdi-Vi tc (Glucosamine Complex-[facility]sm) Capsule (6 sources) Start: 10-01-2020 take 1 capsule by mouth once daily Start: 10-01-2020 take 1 capsule by mouth once daily Nvkjxwazocy-Wtz-Znfrexgmi-Vitc (Glucosam ine Complex-Msm) Capsule Active 1 CAP PO Daily October 01, 2020 1:00am Complies with drug therapy Start: 10-01-2020 take 1 capsule by mouth once daily Fhlbuefbzjf-Qxa-Yqovtkand-Vitc (Glucosam ine Complex-Msm) Capsule Active 1 CAP [...] Start: 05-07-2021 take 1 capsule by mo [facility] once daily Turmeric Root Extract 500 mg [...] Muscle spasms take 2 tablets by mo [facility] three times daily as needed baclofen 10 [...] care facility (current) drug therapy; Translations: [[facility] CURRENT DRUG THERAPY] Onset: 02-12-2023 Episodic Other [...] (20 sources) Drug therapy finding; Translations: [Other [facility] (current[facility] drug therapy] Onset: 07-31-2024 07-31-2024 Episodic [...] of malignant neoplasm of digestive organs; Translations: [[facility] HX [facility] NEOPLASM DIGESTIV ORGN] Onset: 09-05-2022 Episodic [...] Facility Optical coherence tomography study reporton 05-15-2025 [facility] Radiology Study observation (narrative) [facility] Perimetry studyon 05-15-2025 [facility] Radiology Study observation (narrative) [facility] XR Foot - left 3 [facility] Result: K-wire fixation intact with PIPJ arthrodesis site intact to the 3rd digit with rectus 3rd digit noted [facility] Radiology Study observation (narrative) [facility] EMG 2 Extremitieson 10-23-20 24 Carpal tunnel bilaterally. Moderate left and minimal right. C8 radiculopathy bilaterally which is mild in degree electrically [facility] NVC 11-12 Nerveson 4 Carpal tunnel bilaterally. Moderate left and minimal right. C8 radiculopathy bilaterally which is mild in degree electrically [facility] Optical coherence tomography study reporton 08-01-2024 [facility] Optical coherence tomography study reporton 07-31-2024 Radiology Study observation (narrative) [facility] Perimetry studyon 07-31-2024 [facility] Radiology Study observation (narrative) [facility] CBCon 12-02-2023 ABSOLUTE BAS 0.0 10*3/uL Normal 0.0-0.2 [facility] Comment on above: Performed By: #### A CBC #### Testing performed at [address] [address] ABSOLUTE EOS 0.0 10*3/uL Normal 0.0-0.7 [facility] Comment on above: Performed By: #### A CBC #### Testing performed at [address] [address] ABSOLUTE NEUTROPHIL COUNT 2.4 10*3/uL Normal 1.4-6.5 [facility] Comment on above: Performed By: #### A CBC #### Testing performed at [address] [address] Basophils/100 WBC (Bld) 0.3 % Normal 0.0-2.0 [facility] Comment on above: Performed By: #### A CBC #### Testing performed at [address] [address] DTYPE AUTO DIFF Normal [facility] Comment on above: Performed By: #### A CBC #### Testing performed at [address] [address] Eosinophils/100 WBC (Bld) 0.9 % Normal 0.0-11.0 [facility] Comment on above: Performed By: #### A CBC #### Testing performed at [address] [address] Lymphocytes (Bld) [#/Vol] 0.6 10*3/uL Low 1.2-3.4 [facility] Comment on above: Performed By: #### A CBC #### Testing performed at [address] [address] Lymphocytes/100 WBC (Bld) 17.6 % Low 20.0-55.0 [facility] Comment on above: Performed By: #### A CBC #### Testing performed at [address] [address] Monocytes (Bld) [#/Vol] 0.5 10*3/uL Normal 0.0-0.7 [facility] Comment on above: Performed By: #### A CBC #### Testing performed at [address] [address] Monocytes/100 WBC (Bld) 14.6 % High 0.0-10.0 [facility] Comment on above: Performed By: #### A CBC #### Testing performed at [address] [address] Neutrophils/100 WBC (Bld) 66.6 % Normal 37.0-75.0 [facility] Comment on above: Performed By: #### A CBC #### Testing performed at [address] [address] Erythrocyte distribution width (RBC) [Ratio] 14.2 % Normal 11.5-14.5 [facility] Comment on above: Performed By: #### A CBC #### Testing performed at [address] [address] Hematocrit (Bld) [Volume fraction] 27.6 % Low 36.0-48.0 [facility] Comment on above: Performed By: #### A CBC #### Testing performed at [address] [address] Hemoglobin (Bld) [Mass/Vol] 9.2 g/dL Low 12.0-16.0 [facility] Comment on above: Performed By: #### A CBC #### Testing performed at [address] [address] MCH (RBC) [Entitic mass] 34.3 pg Normal 26.0-35.0 [facility] Comment on above: Performed By: #### A CBC #### Testing performed at [address] [address] MCHC (RBC) [Mass/Vol] 33.4 g/dL Normal 27.0-37.0 [facility] Comment on above: Performed By: #### A CBC #### Testing performed at [address] [address] MCV (RBC) [Entitic vol] 102.5 fL High 80.0-100.0 [facility] Comment on above: Performed By: #### A CBC #### Testing performed at [address] [address] Platelet mean volume (Bld) [Entitic vol] 7.3 fL Low 7.4-11.0 [facility] Comment on above: Performed By: #### A CBC #### Testing performed at [address] [address] Platelets (Bld) [#/Vol] 165 10*3/uL Normal 130-400 [facility] Comment on above: Performed By: #### A CBC #### Testing performed at [address] [address] RBC (Bld) [#/Vol] 2.69 10*6/uL Low 4.0-5.4 [facility] Comment on above: Performed By: #### A CBC #### Testing performed at [address] [address] WBC (Bld) [#/Vol] 3.6 10*3/uL Normal 3.6-11.0 [facility] Comment on above: Performed By: #### A CBC #### Testing performed at [address] [address] BMP FASTINGon 12-01-2023 Anion gap [Moles/Vol] 7 mmol/L Normal [facility] Comment on above: Performed By: #### B MPF, ACBC #### Testing performed at [address] [address] Calcium [Mass/Vol] 8.4 mg/dL Normal 8.4-10.2 [facility] Comment on above: Performed By: #### B MPF, ACBC #### Testing performed at [address] [address] Chloride [Moles/Vol] 106 mmol/L Normal 98-107 [facility] Comment on above: Result Comment: Plea note: Triglyceride levels of 600mg/dL or higher may positively bias chloride results by approximately 2.1 mmol Performed By: #### B MPF, ACBC #### Testing performed at [place] [id number] CO2 [Moles/Vol] 23 mmol/L Normal 22-[address] [facility] Comment on above: Performed By: #### B MPF, ACBC #### Testing performed at [place] [id number] Creatinine [Mass/Vol] 0.50 mg/dL Low 0.70-1.20 [facility] Comment on above: Performed By: #### B MPF, ACBC #### Testing performed at [address] [address] EST. GFR, 157 ml/min/1.73sq.m [facility] Comment on above: Performed By: #### B MPF, ACBC #### Testing performed at [place] [id number] EST. GFR,Non 130 ml/min/1.73sq.m [facility] Comment on above: Performed By: #### B MPF, ACBC #### [place] [address] GFR Information Average GFR for 70+ years old = 75. Normal [facility] Comment on above: Result Comment: Cutting Machine T[employer] Decorative arnie Kidney disease, GFR = <60. Kidney failure, GFR = <15. The GFR estimate is not adjusted for extreme body surface area or acute process, nor has it been validated for women or ethnic groups other than and . Performed By: #### B MPF, ACBC #### Testing performed at [address] [address] Glucose [Mass/Vol] 125 mg/dL High 70-100 [facility] Comment on above: Result Comment: NORMAL <100 mg/dL PREDIABETES 101-126 mg/dL DIABETES 126 mg/dL or higher Performed By: #### B MPF, ACBC #### Testing performed at [place] [id number] Potassium [Moles/Vol] 3.4 mmol/L Low 3.5-5.1 [facility] Comment on above: Performed By: #### B MPF, ACBC #### Testing performed at [address] [address] Sodium [Moles/Vol] 136 mmol/L Low 137-145 [facility] Comment on above: Performed By: #### B MPF, ACBC #### Testing performed at [address] [address] Urea nitrogen [Mass/Vol] 15 mg/dL Normal 7-20 [facility] Comment on above: Performed By: #### B MPF, ACBC #### Testing performed at [address] [address] CBCon 12-01-2023 ABSOLUTE BAS 0.0 10*3/uL Normal 0.0-0.2 [facility] Comment on above: Performed By: #### B MPF, ACBC #### Testing performed at [address] [address] ABSOLUTE EOS 0.0 10*3/uL Normal 0.0-0.7 [facility] Comment on above: Performed By: #### B MPF, ACBC #### Testing performed at [address] [address] ABSOLUTE NEUTROPHIL COUNT 4.1 10*3/uL Normal 1.4-6.5 [facility] Comment on above: Performed By: #### B MPF, ACBC #### Testing performed at [address] [address] Basophils/100 WBC (Bld) 0.1 % Normal 0.0-2.0 [facility] Comment on above: Performed By: #### B MPF, ACBC #### Testing performed at [address] [address] DTYPE AUTO DIFF Normal [facility] Comment on above: Performed By: #### B MPF, ACBC #### Testing performed at [address] [address] Eosinophils/100 WBC (Bld) 0.0 % Normal 0.0-11.0 [facility] Comment on above: Performed By: #### B MPF, ACBC #### Testing performed at [address] [place] [address] Erythrocyte distribution width (RBC) [Ratio] 14.3 % Normal 11.5-14.5 [facility] Comment on above: Performed By: #### B MPF, ACBC #### Testing performed at [address] [place] [address] Hematocrit (Bld) [Volume fraction] 30.1 % Low 36.0-48.0 [facility] Comment on above: Performed By: #### B MPF, ACBC #### Testing performed at [address] [address] Hemoglobin (Bld) [Mass/Vol] 10.3 g/dL Low 12.0-16.0 [facility] Comment on above: Performed By: #### B MPF, ACBC #### Testing performed at [address] [address] Lymphocytes (Bld) [#/Vol] 0.4 10*3/uL Low 1.2-3.4 [facility] Comment on above: Performed By: #### B MPF, ACBC #### Testing performed at [address] [address] Lymphocytes/100 WBC (Bld) 8.1 % Low 20.0-55.0 [facility] Comment on above: Performed By: #### B MPF, ACBC #### Testing performed at [address] [address] MCH (RBC) [Entitic mass] 34.6 pg Normal 26.0-35.0 [facility] Comment on above: Performed By: #### B MPF, ACBC #### Testing performed at [address] [place] [address] MCHC (RBC) [Mass/Vol] 34.2 g/dL Normal 27.0-37.0 [facility] Comment on above: Performed By: #### B MPF, ACBC #### Testing performed at [address] [place] [address] MCV (RBC) [Entitic vol] 101.3 fL High 80.0-100.0 [facility] Comment on above: Performed By: #### B MPF, ACBC #### Testing performed at [address] [address] Monocytes (Bld) [#/Vol] 0.4 10*3/uL Normal 0.0-0.7 [facility] Comment on above: Performed By: #### B MPF, ACBC #### Testing performed at [address] [address] Monocytes/100 WBC (Bld) 8.1 % Normal 0.0-10.0 [facility] Comment on above: Performed By: #### B MPF, ACBC #### Testing performed at [address] [address] Neutrophils/100 WBC (Bld) 83.7 % High 37.0-75.0 [facility] Comment on above: Performed By: #### B MPF, ACBC #### Testing performed at [address] [address] Platelet mean volume (Bld) [Entitic vol] 7.3 fL Low 7.4-11.0 [facility] Comment on above: Performed By: #### B MPF, ACBC #### Testing performed at [address] [address] Platelets (Bld) [#/Vol] 181 10*3/uL Normal 130-400 [facility] Comment on above: Performed By: #### B MPF, ACBC #### Testing performed at [address] [address] RBC (Bld) [#/Vol] 2.97 10*6/uL Low 4.0-5.4 [facility] Comment on above: Performed By: #### B MPF, ACBC #### Testing performed at [address] [address] WBC (Bld) [#/Vol] 4.9 10*3/uL Normal 3.6-11.0 [facility] Comment on above: Performed By: #### B MPF, ACBC #### Testing performed at [address] [address] CBC, EDIF, PLATELETon 2022 ABSOLUTE BASOPHIL COUNT 0.0 10*3/uL 0.0 - 0.2 10*3/uL [facility] Basophils/100 WBC (Bld) 0.3 % 0.0 - 2.0 % [facility] Differential cell count method Nom (Bld) AUTO DIFF % [facility] Eosinophils (Bld) [#/Vol] 0.1 10*3/uL 0.0 - 0.7 10*3/uL [facility] Eosinophils/100 WBC (Bld) 1.8 % 0.0 - 11.0 % [facility] Erythrocyte distribution width (RBC) [Ratio] 14.5 % 11.5 - 14.5 % [facility] Hematocrit (Bld) [Volume fraction] 34.7 % Low 36.0 - 48.0 % [facility] Hemoglobin (Bld) [Mass/Vol] 11.3 g/dL Low [facility] Interpretation and review of laboratory results Abnormal [facility] Lymphocytes (Bld) [#/Vol] 0.4 10*3/uL Low 1.2 - 3.4 10*3/uL [facility] Lymphocytes/100 WBC (Bld) 11.1 % Low 20.0 - 55.0 % [facility] MCH (RBC) [Entitic mass] 33.4 pg 26.0 - 35.0 PG [facility] MCHC (RBC) [Mass/Vol] 32.4 g/dL [facility] MCV (RBC) [Entitic vol] 103.1 fL High [facility] Monocytes (Bld) [#/Vol] 0.4 10*3/uL 0.0 - 0.7 10*3/uL [facility] Monocytes/100 WBC (Bld) 11.1 % High 0.0 - 10.0 % [facility] Neutrophils (Bld) [#/Vol] 2.6 10*3/uL 1.4 - 6.5 10*3/uL [facility] Neutrophils/100 WBC (Bld) 75.7 % High 37.0 - 75.0 % [facility] Platelet mean volume (Bld) [Entitic vol] 7.2 fL Low [facility] Platelets (Bld) [#/Vol] 175 10*3/uL 130 - 400 10*3/uL [facility] RBC (Bld) [#/Vol] 3.37 10*6/uL Low 4.0 - 5.4 10*6/uL [facility] WBC (Bld) [#/Vol] 3.5 10*3/uL Low 3.6 - 11.0 10*3/uL [facility] COMPREHENSIVE METABOLIC PANE Adolph 11-03-2023 Albumin [Mass/Vol] 3.8 G/dl 3.5 - 5.0 G/dl [facility] Albumin/Globulin [Mass ratio] 1.7 {ratio} RATIO [facility] ALP [Catalytic activity/Vol] 61 U/L [facility] ALT [Catalytic activity/Vol] 26 U/L NINF [facility] AST [Catalytic activity/Vol] 36 U/L [facility] Bilirubin [Mass/Vol] 0.7 mg/dL [facility] Calcium [Mass/Vol] 9.4 mg/dL [facility] Chloride [Moles/Vol] 104 mmol/L [facility] Comment on above: Please note: Triglyc eride levels of 600mg/dL or higher may positively bias chloride results by approximately 2.1 mmol CO2 [Moles/Vol] 28 mmol/L [facility] Creatinine [Mass/Vol] 0.60 mg/dL Low [facility] GFR COMMENT Average GFR for 70+ years old = 75. [facility] Comment on above: Chronic Kidney disea se, GFR = <60. Kidney failure, GFR = <15. The GFR estimate is not adjusted for extreme body surface area or acute process, nor has it been validated for women or ethnic groups other than and . GFR/1.73 sq M.predicted among blacks MDRD (S/P/Bld) [Vol rate/Area] 127 mL/min/{1.73_m2} ml/min/1.73sq .m [facility] GFR/1.73 sq M.predicted among non-blacks MDRD (S/P/Bld) [Vol rate/Area] 105 mL/min/{1.73_m2} ml/min/1.73sq .m [facility] Glucose post fast [Mass/Vol] 91 mg/dL [facility] Comment on above: NORMAL <100 mg/dL PREDIABETES 101-126 mg/dL DIABETES 126 mg/dL or higher Interpretation and review of laboratory results Abnormal [facility] Potassium [Moles/Vol] 3.9 mmol/L [facility] Protein [Mass/Vol] 6.1 g/dL Low [facility] Sodium [Moles/Vol] 135 mmol/L Low [facility] Urea nitrogen [Mass/Vol] 12 mg/dL [facility] ECGOrdered By: Delgado da silva on 11-03-2023 [facility] Work Phone: HEMOGLOBIN A1Con 11-03-2023 Glucose [Mass/Vol] 100 mg/dL [facility] HbA1c (Bld) [Mass fraction] 5.1 % 0 - 6 % [facility] Comment on above: NORMAL <5.7% PREDIABETES 5.7-6.4% DIABETES 6.5% OR HIGHER [facility] PROTIME-INRon 11-03-2023 INR Coag (PPP) [Relative time] 0.94 {INR} 0.85 - 1.10 [facility] Comment on above: 2.0-3.0 THERAPEUTIC RANGE 2.5-3.5 MECHANICAL VALVE RANGE PT Coag (PPP) [Time] 12.7 s [facility] SCREEN: MRSA ONLY, NARES (IS OLATION SCREEN)on 11-03-2023 MRSA isol Org specific cx Ql (Nose) Negative NEGATIVE [facility] STAPHYOCOCCUS AUREUS BY PCR Negative NEGATIVE [facility] Comment on above: TESTING PERFORMED BY PCR [facility] URINALYSIS, MACROon 11-03-20 23 Bilirubin Ql (U) Negative NEGATIVE [facility] Clarity (U) CLEAR CLEAR [facility] Color (U) YELLOW YELLOW [facility] Glucose Test strip (U) [Mass/Vol] Negative NEGATIVE mg/dl [facility] Hemoglobin Ql (U) Negative NEGATIVE [facility] Ketones (U) [Mass/Vol] Negative NEGATIVE mg/dl [facility] Leukocyte esterase Test strip Ql (U) Negative NEGATIVE [facility] Nitrite Ql (U) Negative NEGATIVE [facility] pH (U) 7.0 [pH] 5.0 - 7.0 [facility] Protein Ql (U) Negative NEGATIVE mg/dl [facility] Specific gravity (U) [Rel density] 1.015 1.010 - 1.025 [facility] Urobilinogen (U) [Mass/Vol] 0.2 mg/dL [facility] C3 and C4 COMPLEMENTon 02-09 Complement C3, Serum 140 mg/dL Normal 82-167 [facility] Comment on above: Performed By: #### L IVER, LIPID, TSH, FT3, T4 #### [facility] [address] [place] [address] Dr. Frank Hills Complement C4, Serum 36 mg/dL Normal 12-38 [facility] Comment on above: Performed By: #### L IVER, LIPID, TSH, FT3, T4 #### [facility] [address] [place] [address] Dr. Frank Hills COMPLEMENT TOTAL (CH50)on Complement, Total (CH50) >60 Normal >41 [facility] Comment on above: Result Comment: Age Male [...] values. Performed By: #### C [id number] #### [facility] [address] [place] [address] Dr. Frank Hills CBC AUTO DIFFon 02-08-2023 BASO # 0.0 103/ul Normal 0.0-0.1 [facility] Comment on above: Performed By: #### C BC #### [facility] [address] [place] [address] Dr. Frank Hills Basophils/100 WBC (Bld) 0.3 % Normal 0.2-2.0 [facility] Comment on above: Performed By: #### C BC #### [facility] [address] [place] [address] Dr. Frank Hills EO # 0.1 103/ul Normal 0.0-0.7 [facility] Comment on above: Performed By: #### C BC #### [facility] [address] [place] [address] Dr. Frank Hills Eosinophils/100 WBC (Bld) 1.6 % Normal 0.9-7.0 [facility] Comment on above: Performed By: #### C BC #### [facility] [address] [place] [address] Dr. Frank Hills Erythrocyte distribution width (RBC) [Ratio] 13.6 % Normal 11.0-15.0 [facility] Comment on above: Performed By: #### C BC #### [facility] [address] [place] [address] Dr. Frank Hills Hematocrit (Bld) [Volume fraction] 36.4 % Normal 36.0-48.0 [facility] Comment on above: Performed By: #### C BC #### [facility] [address] [place] [address] Dr. Frank Hills Hemoglobin (Bld) [Mass/Vol] 11.8 g/dL Critically low 12.0-16.0 [facility] Comment on above: Performed By: #### C BC #### [facility] [address] [place] [address] Dr. Frank Hills IG # 0.01 10e3/ul Normal 0.00-0.03 [facility] Comment on above: Performed By: #### C BC #### [facility] [address] [place] [address] Dr. Frank Hills IG % 0.3 % Normal 0.0-0.5 [facility] Comment on above: Performed By: #### C BC #### [facility] [address] [place] [address] Dr. Frank Hills LYMPH # 0.6 103/ul Critically low 1.2-3.8 [facility] Comment on above: Performed By: #### C BC #### [facility] [address] [place] [address] Dr. Frank Hills Lymphocytes/100 WBC (Bld) 15.3 % Critically low 20.5-60.0 [facility] Comment on above: Performed By: #### C BC #### [facility] [address] [place] [address] Dr. Frank Hills MANUAL DIFF REQ NO Normal [facility] Comment on above: Performed By: #### C BC #### [facility] [address] [place] [address] Dr. Frank Hills MCH (RBC) [Entitic mass] 33.2 pg Normal 26.7-34.0 [facility] Comment on above: Performed By: #### C BC #### [facility] [address] [place] [address] Dr. Frank Hills MCHC (RBC) [Mass/Vol] 32.4 g/dL Normal 29.9-35.2 [facility] Comment on above: Performed By: #### C BC #### [facility] [address] [place] [address] Dr. Frank Hills MCV (RBC) [Entitic vol] 102.5 fL Critically high 81.0-99.0 [facility] Comment on above: Performed By: #### C BC #### [facility] [address] [place] [address] Dr. Frank Hills MONO # 0.5 103/ul Normal 0.3-0.8 [facility] Comment on above: Performed By: #### C BC #### [facility] [address] [place] [address] Dr. Frank Hills Monocytes/100 WBC (Bld) 12.5 % Critically high 1.7-12.0 [facility] Comment on above: Performed By: #### C BC #### [facility] [address] [place] [address] Dr. Frank Hills NEUT # 2.6 103/ul Normal 1.4-6.5 [facility] Comment on above: Performed By: #### C BC #### [facility] [address] [place] [address] Dr. Frank Hills Neutrophils/100 WBC (Bld) 70.0 % Normal 43.0-75.0 [facility] Comment on above: Performed By: #### C BC #### [facility] [address] [address] [address] Frank Hills Platelet mean volume (Bld) [Entitic vol] 9.0 fL Critically low 9.5-13.5 [facility] Comment on above: Performed By: #### C BC #### [facility] [address] [address] [address] Frank Hills PLT 192 103/ul Normal 150-450 [facility] Comment on above: Performed By: #### C BC #### [facility] [address] [place] [address] Dr. Frank Hills RBC 3.55 106/ul Critically low 4.20-5.40 [facility] Comment on above: Performed By: #### C BC #### [facility] [address] [place] [address] Dr. Frank Hills WBC 3.7 103/ul Critically low 4.0-11.0 [facility] Comment on above: Performed By: #### C BC #### [facility] [address] [place] [address] Dr. Frank Hills PROF 14(COMP METB)on 023 Albumin [Mass/Vol] 3.7 g/dL Normal 3.4-5.0 [facility] Comment on above: Performed By: #### L IVER, LIPID, TSH, FT3, T4 #### [facility] [address] [place] [address] Dr. Frank Hills Albumin/Globulin [Mass ratio] 1.2 {ratio} Normal [facility] Comment on above: Performed By: #### L IVER, LIPID, TSH, FT3, T4 #### [facility] [address] [place] [address] Dr. Frank Hills ALP [Catalytic activity/Vol] 66 U/L Normal 46-116 [facility] Comment on above: Performed By: #### L IVER, LIPID, TSH, FT3, T4 #### [facility] [address] [place] [address] Dr. Frank Hills ALT [Catalytic activity/Vol] 29 U/L Normal 14-59 [facility] Comment on above: Performed By: #### L IVER, LIPID, TSH, FT3, T4 #### [facility] [address] [place] [address] Dr. Frank Hills Anion gap [Moles/Vol] 11.6 mmol/L Normal [facility] Comment on above: Performed By: #### L IVER, LIPID, TSH, FT3, T4 #### [facility] [address] [place] [address] Dr. Frank Hills AST [Catalytic activity/Vol] 27 U/L Normal 15-37 [facility] Comment on above: Performed By: #### L IVER, LIPID, TSH, FT3, T4 #### [facility] [address] [place] [address] Dr. Frank Hills Bilirubin [Mass/Vol] 0.7 mg/dL Normal 0.2-1.0 [facility] Comment on above: Performed By: #### L IVER, LIPID, TSH, FT3, T4 #### [facility] [address] [place] [address] Dr. Frank Hills Calcium [Mass/Vol] 9.1 mg/dL Normal 8.5-10.1 [facility] Comment on above: Performed By: #### L IVER, LIPID, TSH, FT3, T4 #### [facility] [address] [place] [address] Dr. Frank Hills Chloride [Moles/Vol] 105 mmol/L Normal 98-107 [facility] Comment on above: Performed By: #### L IVER, LIPID, TSH, FT3, T4 #### [facility] [address] [place] [address] Dr. Frank Hills CO2 [Moles/Vol] 29.5 mmol/L Normal 21.0-32.0 [facility] Comment on above: Performed By: #### L IVER, LIPID, TSH, FT3, T4 #### [facility] [address] [place] [address] Dr. Frank Hills Creatinine [Mass/Vol] 0.57 mg/dL Normal 0.55-1.02 [facility] Comment on above: Performed By: #### L IVER, LIPID, TSH, FT3, T4 #### [facility] [address] [address] [address] Frank Hills EGFR-AF HONDURAN >60 Normal >=60 [facility] Comment on above: Performed By: #### L IVER, LIPID, TSH, FT3, T4 #### [facility] [address] [address] [address] Frank Hills EGFR-NON AF HONDURAN >60 Normal >=60 [facility] Comment on above: Performed By: #### L IVER, LIPID, TSH, FT3, T4 #### [facility] [address] [place] [address] Dr. Frank Hills Globulin (S) [Mass/Vol] 3.1 g/dL Normal [facility] Comment on above: Performed By: #### L IVER, LIPID, TSH, FT3, T4 #### [facility] [address] [address] [address] Frank Hills Glucose [Mass/Vol] 95 mg/dL Normal 74-106 [facility] Comment on above: Performed By: #### L IVER, LIPID, TSH, FT3, T4 #### [facility] [address] [address] [address] Frank Hills Potassium [Moles/Vol] 5.1 mmol/L Normal 3.5-5.1 [facility] Comment on above: Performed By: #### L IVER, LIPID, TSH, FT3, T4 #### [facility] [address] [address] [address] Frank Hills Protein [Mass/Vol] 6.8 g/dL Normal 6.4-8.2 [facility] Comment on above: Performed By: #### L IVER, LIPID, TSH, FT3, T4 #### [facility] [address] [address] [address] Frank Hills Sodium [Moles/Vol] 141 mmol/L Normal 136-145 [facility] Comment on above: Performed By: #### L IVER, LIPID, TSH, FT3, T4 #### [facility] [address] [place] [address] Dr. Frank Hills Urea nitrogen [Mass/Vol] 13.0 mg/dL Normal 7.0-18.0 [facility] Comment on above: Performed By: #### L IVER, LIPID, TSH, FT3, T4 #### [facility] [address] [place] [address] Dr. Frank Hills Urea nitrogen/Creatinine [Mass ratio] 22.8 mg/mg Normal [facility] Comment on above: Performed By: #### L IVER, LIPID, TSH, FT3, T4 #### [facility] [address] [place] [address] Dr. Frank Hills SED RATE [facility] 2022 SED RATE 9 mm/hr Normal <=30 [facility] Comment on above: Performed By: #### L IVER, LIPID, TSH, FT3, T4 #### [facility] [address] [place] [address] Dr. Frank Hills UA RANDOM W/MICROSCOPICon BACTERIA NONE SEEN Normal NONE SEEN [facility] Comment on above: Performed By: #### L IVER, LIPID, TSH, FT3, T4 #### [facility] [address] [place] [address] Dr. Frank Hills Bilirubin Ql (U) Negative Normal NEGATIVE [facility] Comment on above: Performed By: #### L IVER, LIPID, TSH, FT3, T4 #### [facility] [address] [place] [address] Dr. Frank Hills CAST NONE SEEN Normal NONE SEEN [facility] Comment on above: Performed By: #### L IVER, LIPID, TSH, FT3, T4 #### [facility] [address] [place] [address] Dr. Frank Hills Clarity (U) CLEAR Normal CLEAR [facility] Comment on above: Performed By: #### L IVER, LIPID, TSH, FT3, T4 #### [facility] [address] [address] [address] Frank Hills Color (U) LT. YELLOW Normal YELLOW [facility] Comment on above: Performed By: #### L IVER, LIPID, TSH, FT3, T4 #### [facility] [address] [address] [address] Frank Hills Crystals LM Nom (Urine sed) NONE SEEN Normal NONE SEEN [facility] Comment on above: Performed By: #### L IVER, LIPID, TSH, FT3, T4 #### [facility] [address] [address] [address] Frank Hills Epithelial cells LM Ql (Urine sed) RARE Normal NONE SEEN /RARE [facility] Comment on above: Performed By: #### L IVER, LIPID, TSH, FT3, T4 #### [facility] [address] [place] [address] Dr. Frank Hills Glucose Ql (U) Negative Normal NEGATIVE [facility] Comment on above: Performed By: #### L IVER, LIPID, TSH, FT3, T4 #### [facility] [address] [place] [address] Dr. Frank Hills Hemoglobin Ql (U) Negative Normal NEGATIVE [facility] Comment on above: Performed By: #### L IVER, LIPID, TSH, FT3, T4 #### [facility] [address] [place] [address] Dr. Frank iHlls Ketones Ql (U) Negative Normal NEGATIVE [facility] Comment on above: Performed By: #### L IVER, LIPID, TSH, FT3, T4 #### [facility] [address] [address] [address] Frank Hills LEUKOCYTES Negative Normal NEGATIVE [facility] Comment on above: Performed By: #### L IVER, LIPID, TSH, FT3, T4 #### [facility] [address] [address] [address] Frank Hills MUCOUS NONE SEEN Normal NONE SEEN [facility] Comment on above: Performed By: #### L IVER, LIPID, TSH, FT3, T4 #### [facility] [address] [address] [address] Frank Hills Nitrite Ql (U) Negative Normal NEGATIVE [facility] Comment on above: Performed By: #### L IVER, LIPID, TSH, FT3, T4 #### [facility] [address] [place] [address] Dr. Frank Hills pH (U) 6.5 [pH] Normal 5-9 [facility] Comment on above: Performed By: #### L IVER, LIPID, TSH, FT3, T4 #### [facility] [address] [place] [address] Dr. Frank Hills RBC NONE SEEN Abnormal 0-2 [facility] Comment on above: Performed By: #### L IVER, LIPID, TSH, FT3, T4 #### [facility] [address] [place] [address] Dr. Frank Hills SPEC GRAVITY 1.020 Normal 1.005-<=1.025 [facility] Comment on above: Performed By: #### L IVER, LIPID, TSH, FT3, T4 #### [facility] [address] [place] [address] Dr. Frank Hills UA PROTEIN Negative Normal NEGATIVE/ TRACE [facility] Comment on above: Performed By: #### L IVER, LIPID, TSH, FT3, T4 #### [facility] [address] [place] [address] Dr. Frank Hills Urobilinogen Qn (U) 0.2 {Flaquita'U}/dL Normal 0.2 - 1. 0 [facility] Comment on above: Performed By: #### L IVER, LIPID, TSH, FT3, T4 #### [facility] [address] [address] [address] Frank Hills WBC NONE SEEN Normal NONE SEEN [facility] Comment on above: Performed By: #### L IVER, LIPID, TSH, FT3, T4 #### [facility] [address] [place] [address] Dr. Frank Hills C3 and C4 COMPLEMENTon 11-04 Complement C3, Serum 132 mg/dL Normal 82-167 [facility] Comment on above: Performed By: #### L IVER, LIPID, TSH, FT3, T4 #### [facility] [address] [place] [address] Dr. Frank Hills Complement C4, Serum 33 mg/dL Normal 12-38 [facility] Comment on above: Performed By: #### L IVER, LIPID, TSH, FT3, T4 #### [facility] [address] [place] [address] Dr. Frank Hills COMPLEMENT TOTAL (CH50)on Complement, Total (CH50) >60 Normal >41 [facility] Comment on above: Result Comment: Age Male [...] L IVER, LIPID, TSH, FT3, T4 #### [facility] [address] [place] [address] Dr. Frank Hills CBC AUTO DIFFon 11-03-2022 BASO # 0.0 103/ul Normal 0.0-0.1 [facility] Comment on above: Performed By: #### L IVER, LIPID, TSH, FT3, T4 #### [facility] [address] [place] [address] Dr. Frank Hills Basophils/100 WBC (Bld) 1.0 % Normal 0.2-2.0 [facility] Comment on above: Performed By: #### L IVER, LIPID, TSH, FT3, T4 #### [facility] [address] [place] [address] Dr. Frank Hills EO # 0.1 103/ul Normal 0.0-0.7 [facility] Comment on above: Performed By: #### L IVER, LIPID, TSH, FT3, T4 #### [facility] [address] [place] [address] Dr. Frank Hills Eosinophils/100 WBC (Bld) 1.8 % Normal 0.9-7.0 [facility] Comment on above: Performed By: #### L IVER, LIPID, TSH, FT3, T4 #### [facility] [address] [place] [address] Dr. Frank Hills Erythrocyte distribution width (RBC) [Ratio] 13.8 % Normal 11.0-15.0 [facility] Comment on above: Performed By: #### L IVER, LIPID, TSH, FT3, T4 #### [facility] [address] [place] [address] Dr. Frank Hills Hematocrit (Bld) [Volume fraction] 36.3 % Normal 36.0-48.0 [facility] Comment on above: Performed By: #### L IVER, LIPID, TSH, FT3, T4 #### [facility] [address] [place] [address] Dr. Frank Hills Hemoglobin (Bld) [Mass/Vol] 11.9 g/dL Critically low 12.0-16.0 [facility] Comment on above: Performed By: #### L IVER, LIPID, TSH, FT3, T4 #### [facility] [address] [place] [address] Dr. Frank Hills IG # 0.02 10e3/ul Normal 0.00-0.03 [facility] Comment on above: Performed By: #### L IVER, LIPID, TSH, FT3, T4 #### [facility] [address] [place] [address] Dr. Frank Hills IG % 0.5 % Normal 0.0-0.5 [facility] Comment on above: Performed By: #### L IVER, LIPID, TSH, FT3, T4 #### [facility] [address] [place] [address] Dr. Frank Hills LYMPH # 0.7 103/ul Critically low 1.2-3.8 [facility] Comment on above: Performed By: #### L IVER, LIPID, TSH, FT3, T4 #### [facility] [address] [address] [address] Frank Hills Lymphocytes/100 WBC (Bld) 18.0 % Critically low 20.5-60.0 [facility] Comment on above: Performed By: #### L IVER, LIPID, TSH, FT3, T4 #### [facility] [address] [place] [address] Dr. Frank Hills MANUAL DIFF REQ NO Normal [facility] Comment on above: Performed By: #### L IVER, LIPID, TSH, FT3, T4 #### [facility] [address] [place] [address] Dr. Frank Hills MCH (RBC) [Entitic mass] 34.2 pg Critically high 26.7-34.0 [facility] Comment on above: Performed By: #### L IVER, LIPID, TSH, FT3, T4 #### [facility] [address] [place] [address] Dr. Frank Hills MCHC (RBC) [Mass/Vol] 32.8 g/dL Normal 29.9-35.2 [facility] Comment on above: Performed By: #### L IVER, LIPID, TSH, FT3, T4 #### [facility] [address] [place] [address] Dr. Frank Hills MCV (RBC) [Entitic vol] 104.3 fL Critically high 81.0-99.0 [facility] Comment on above: Performed By: #### L IVER, LIPID, TSH, FT3, T4 #### [facility] [address] [place] [address] Dr. Frank Hills MONO # 0.4 103/ul Normal 0.3-0.8 [facility] Comment on above: Performed By: #### L IVER, LIPID, TSH, FT3, T4 #### [facility] [address] [place] [address] Dr. Frank Hills Monocytes/100 WBC (Bld) 10.0 % Normal 1.7-12.0 [facility] Comment on above: Performed By: #### L IVER, LIPID, TSH, FT3, T4 #### [facility] [address] [address] [address] Frank Hills NEUT # 2.7 103/ul Normal 1.4-6.5 [facility] Comment on above: Performed By: #### L IVER, LIPID, TSH, FT3, T4 #### [facility] [address] [place] [address] Dr. Frank Hills Neutrophils/100 WBC (Bld) 68.7 % Normal 43.0-75.0 [facility] Comment on above: Performed By: #### L IVER, LIPID, TSH, FT3, T4 #### [facility] [address] [place] [address] Dr. Frank Hills Platelet mean volume (Bld) [Entitic vol] 9.4 fL Critically low 9.5-13.5 [facility] Comment on above: Performed By: #### L IVER, LIPID, TSH, FT3, T4 #### [facility] [address] [place] [address] Dr. Frank Hills PLT 187 103/ul Normal 150-450 [facility] Comment on above: Performed By: #### L IVER, LIPID, TSH, FT3, T4 #### [facility] [address] [place] [address] Dr. Frank Hills RBC 3.48 106/ul Critically low 4.20-5.40 [facility] Comment on above: Performed By: #### L IVER, LIPID, TSH, FT3, T4 #### [facility] [address] [place] [address] Dr. Frank Hills WBC 3.9 103/ul Critically low 4.0-11.0 [facility] Comment on above: Performed By: #### L IVER, LIPID, TSH, FT3, T4 #### [facility] [address] [place], [place] [address] Dr. Frank Hills PROF 14(COMP METB)on 022 Albumin [Mass/Vol] 3.9 g/dL Normal 3.4-5.0 [facility] Comment on above: Performed By: #### L IVER, LIPID, TSH, FT3, T4 #### [facility] [address] [place] [address] Dr. Frank Hills Albumin/Globulin [Mass ratio] 1.3 {ratio} Normal [facility] Comment on above: Performed By: #### L IVER, LIPID, TSH, FT3, T4 #### [facility] [address] [place] [address] Dr. Frank Hills ALP [Catalytic activity/Vol] 63 U/L Normal 46-116 [facility] Comment on above: Performed By: #### L IVER, LIPID, TSH, FT3, T4 #### [facility] [address] [place] [address] Dr. Frank Hills ALT [Catalytic activity/Vol] 27 U/L Normal 14-59 [facility] Comment on above: Performed By: #### L IVER, LIPID, TSH, FT3, T4 #### [facility] [address] [place] [address] Dr. Frank Hills Anion gap [Moles/Vol] 8.4 mmol/L Normal [facility] Comment on above: Performed By: #### L IVER, LIPID, TSH, FT3, T4 #### [facility] [address] [place] [address] Dr. Frank Hills AST [Catalytic activity/Vol] 31 U/L Normal 15-37 [facility] Comment on above: Performed By: #### L IVER, LIPID, TSH, FT3, T4 #### [facility] [address] [place] [address] Dr. Frank Hills Bilirubin [Mass/Vol] 0.7 mg/dL Normal 0.2-1.0 [facility] Comment on above: Performed By: #### L IVER, LIPID, TSH, FT3, T4 #### [facility] [address] [place] [address] Dr. Frank Hills Calcium [Mass/Vol] 9.0 mg/dL Normal 8.5-10.1 [facility] Comment on above: Performed By: #### L IVER, LIPID, TSH, FT3, T4 #### [facility] [address] [place], [place] [id number] Dr. Frank Hills Chloride [Moles/Vol] 102 mmol/L Normal 98-107 [facility] Comment on above: Performed By: #### L IVER, LIPID, TSH, FT3, T4 #### [facility] [address] [place] [address] Dr. Frank Hills CO2 [Moles/Vol] 30.8 mmol/L Normal 21.0-32.0 [facility] Comment on above: Performed By: #### L IVER, LIPID, TSH, FT3, T4 #### [facility] [address] [address] [address] Frank Hills Creatinine [Mass/Vol] 0.62 mg/dL Normal 0.55-1.02 [facility] Comment on above: Performed By: #### L IVER, LIPID, TSH, FT3, T4 #### [facility] [address] [place] [address] Dr. Frank Hills EGFR-AF HONDURAN >60 Normal >=60 [facility] Comment on above: Performed By: #### L IVER, LIPID, TSH, FT3, T4 #### [facility] [address] [place] [address] Dr. Frank Hills EGFR-NON AF HONDURAN >60 Normal >=60 [facility] Comment on above: Performed By: #### L IVER, LIPID, TSH, FT3, T4 #### [facility] [address] [address] [address] Frank Hills Globulin (S) [Mass/Vol] 3.1 g/dL Normal [facility] Comment on above: Performed By: #### L IVER, LIPID, TSH, FT3, T4 #### [facility] [address] [address] [address] Frank Hills Glucose [Mass/Vol] 102 mg/dL Normal 74-106 [facility] Comment on above: Performed By: #### L IVER, LIPID, TSH, FT3, T4 #### [facility] [address] [address] [address] Frank Hills Potassium [Moles/Vol] 4.2 mmol/L Normal 3.5-5.1 [facility] Comment on above: Performed By: #### L IVER, LIPID, TSH, FT3, T4 #### [facility] [address] [place] [address] Dr. Frank Hills Protein [Mass/Vol] 7.0 g/dL Normal 6.4-8.2 [facility] Comment on above: Performed By: #### L IVER, LIPID, TSH, FT3, T4 #### [facility] [address] [place] [address] Dr. Frank Hills Sodium [Moles/Vol] 137 mmol/L Normal 136-145 [facility] Comment on above: Performed By: #### L IVER, LIPID, TSH, FT3, T4 #### [facility] [address] [place] [address] Dr. Frank Hills Urea nitrogen [Mass/Vol] 15.0 mg/dL Normal 7.0-18.0 [facility] Comment on above: Performed By: #### L IVER, LIPID, TSH, FT3, T4 #### [facility] [address] [place] [address] Dr. Frank Hills Urea nitrogen/Creatinine [Mass ratio] 24.2 mg/mg Normal [facility] Comment on above: Performed By: #### L IVER, LIPID, TSH, FT3, T4 #### [facility] [address] [place] [address] Dr. Frank Hills SED RATE [facility] 2021 SED RATE 8 mm/hr Normal <=30 [facility] Comment on above: Performed By: #### L IVER, LIPID, TSH, FT3, T4 #### [facility] [address] [place] [address] Dr. Frank Hills UA RANDOM W/MICROSCOPICon BACTERIA NONE SEEN Normal NONE SEEN [facility] Comment on above: Performed By: #### L IVER, LIPID, TSH, FT3, T4 #### [facility] [address] [place] [address] Dr. Frank Hills Bilirubin Ql (U) Negative Normal NEGATIVE [facility] Comment on above: Performed By: #### L IVER, LIPID, TSH, FT3, T4 #### [facility] [address] [place] [address] Dr. Frank Hills CAST NONE SEEN Normal NONE SEEN [facility] Comment on above: Performed By: #### L IVER, LIPID, TSH, FT3, T4 #### [facility] [address] [address] [address] Frank Hills Clarity (U) CLEAR Normal CLEAR [facility] Comment on above: Performed By: #### L IVER, LIPID, TSH, FT3, T4 #### [facility] [address] [address] [address] Frank Hills Color (U) LT. YELLOW Normal YELLOW [facility] Comment on above: Performed By: #### L IVER, LIPID, TSH, FT3, T4 #### [facility] [address] [place] [address] Dr. Frank Hills Crystals LM Nom (Urine sed) NONE SEEN Normal NONE SEEN [facility] Comment on above: Performed By: #### L IVER, LIPID, TSH, FT3, T4 #### [facility] [address] [place] [address] Dr. Frank Hills Epithelial cells LM Ql (Urine sed) NONE SEEN Normal NONE SEEN /RARE [facility] Comment on above: Performed By: #### L IVER, LIPID, TSH, FT3, T4 #### [facility] [address] [place] [address] Dr. Frank Hills Glucose Ql (U) Negative Normal NEGATIVE [facility] Comment on above: Performed By: #### L IVER, LIPID, TSH, FT3, T4 #### [facility] [address] [place] [address] Dr. Frank Hills Hemoglobin Ql (U) Negative Normal NEGATIVE [facility] Comment on above: Performed By: #### L IVER, LIPID, TSH, FT3, T4 #### [facility] [address] [place] [address] Dr. Frank Hills Ketones Ql (U) Negative Normal NEGATIVE [facility] Comment on above: Performed By: #### L IVER, LIPID, TSH, FT3, T4 #### [facility] [address] [place] [address] Dr. Frank Hills LEUKOCYTES Negative Normal NEGATIVE [facility] Comment on above: Performed By: #### L IVER, LIPID, TSH, FT3, T4 #### [facility] [address] [address] [address] Frank Hills MUCOUS NONE SEEN Normal NONE SEEN [facility] Comment on above: Performed By: #### L IVER, LIPID, TSH, FT3, T4 #### [facility] [address] [address] [address] Frank Hills Nitrite Ql (U) Negative Normal NEGATIVE [facility] Comment on above: Performed By: #### L IVER, LIPID, TSH, FT3, T4 #### [facility] [address] [place] [address] Dr. Frank Hills pH (U) 6.5 [pH] Normal 5-9 [facility] Comment on above: Performed By: #### L IVER, LIPID, TSH, FT3, T4 #### [facility] [address] [place] [address] Dr. Frank Hills RBC 0-2 Normal 0-2 [facility] Comment on above: Performed By: #### L IVER, LIPID, TSH, FT3, T4 #### [facility] [address] [place] [address] Dr. Frank Hills SPEC GRAVITY 1.015 Normal 1.005-<=1.025 [facility] Comment on above: Performed By: #### L IVER, LIPID, TSH, FT3, T4 #### [facility] [address] [place] [address] Dr. Frank Hills UA PROTEIN Negative Normal NEGATIVE/ TRACE [facility] Comment on above: Performed By: #### L IVER, LIPID, TSH, FT3, T4 #### [facility] [address] [place] [address] Dr. Frank Hills Urobilinogen Qn (U) 0.2 {Flaquita'U}/dL Normal 0.2 - 1. 0 [facility] Comment on above: Performed By: #### L IVER, LIPID, TSH, FT3, T4 #### [facility] [address] [place] [address] Dr. Frank Hills WBC NONE SEEN Normal NONE SEEN [facility] Comment on above: Performed By: #### L IVER, LIPID, TSH, FT3, T4 #### [facility] [address] [place] [address] Dr. Frank Hills INSULINon 10-19-2022 Insulin 9.2 uIU/mL Normal 2.6-24.9 [facility] Comment on above: Performed By: #### L IVER, LIPID, TSH, FT3, T4 #### [facility] [address] [place] [address] Dr. Frank Hills CBC W MANUAL DIFFon 10-18-20 ANISOCYTOSIS SLIGHT Normal [facility] Comment on above: Performed By: #### L IVER, LIPID, TSH, FT3, T4 #### [facility] [address] [place] [address] Dr. Frank Hills ATYPICAL LYMPH # Normal [facility] Comment on above: Performed By: #### L IVER, LIPID, TSH, FT3, T4 #### [facility] [address] [place] [address] Dr. Frank Hills ATYPICAL LYMPH % Normal [facility] Comment on above: Performed By: #### L IVER, LIPID, TSH, FT3, T4 #### [facility] [address] [place] [address] Dr. Frank Hills BAND # Normal 0.0-0.3 [facility] Comment on above: Performed By: #### L IVER, LIPID, TSH, FT3, T4 #### [facility] [address] [place] [address] Dr. Frank Hills BAND % Normal 0-5 [facility] Comment on above: Performed By: #### L IVER, LIPID, TSH, FT3, T4 #### [facility] [address] [address] [address] Frank TURKOM # 0.00 103/ul Normal 0.00-0.10 [facility] Comment on above: Performed By: #### L IVER, LIPID, TSH, FT3, T4 #### [facility] [address] [address] [address] Frank Hills BASOM % 0.0 % Critically low 0.2-2.0 [facility] Comment on above: Performed By: #### L IVER, LIPID, TSH, FT3, T4 #### [facility] [address] [address] [address] Frank Hills BLAST # Normal [facility] Comment on above: Performed By: #### L IVER, LIPID, TSH, FT3, T4 #### [facility] [address] [address] [address] Frank Hills BLAST % Normal [facility] Comment on above: Performed By: #### L IVER, LIPID, TSH, FT3, T4 #### [facility] [address] [address] [address] Frank Hills CORRECTED WBC Normal 4.0-11.0 [facility] Comment on above: Performed By: #### L IVER, LIPID, TSH, FT3, T4 #### [facility] [address] [address] [address] Frank Hills EOS # 0.06 103/ul Normal 0.00-0.70 [facility] Comment on above: Performed By: #### L IVER, LIPID, TSH, FT3, T4 #### [facility] [address] [address] [address] Frank Hills EOS% 2.0 % Normal 0.9-7.0 [facility] Comment on above: Performed By: #### L IVER, LIPID, TSH, FT3, T4 #### [facility] [address] [address] [address] Frank Hills HCT 35.6 % Critically low 36.0-48.0 [facility] Comment on above: Performed By: #### L IVER, LIPID, TSH, FT3, T4 #### [facility] [address] [place] [address] Dr. Frank Hills HGB 11.4 g/dl Critically low 12.0-16.0 [facility] Comment on above: Performed By: #### L IVER, LIPID, TSH, FT3, T4 #### [facility] [address] [place] [address] Dr. Frank Hills LYMPHM # 0.48 103/ul Critically low 1.20-3.80 [facility] Comment on above: Performed By: #### L IVER, LIPID, TSH, FT3, T4 #### [facility] [address] [place] [address] Dr. Frank Hills LYMPHM% 17.0 % Critically low 20.5-60.0 [facility] Comment on above: Performed By: #### L IVER, LIPID, TSH, FT3, T4 #### [facility] [address] [place] [address] Dr. Frank Hills MCH 33.4 pg Normal 26.7-34.0 [facility] Comment on above: Performed By: #### L IVER, LIPID, TSH, FT3, T4 #### [facility] [address] [place] [address] Dr. Frank Hills MCHC 32.0 g/dl Normal 29.9-35.2 [facility] Comment on above: Performed By: #### L IVER, LIPID, TSH, FT3, T4 #### [facility] [address] [place] [address] Dr. Frank Hills MCV 104.4 fL Critically high 81.0-99.0 [facility] Comment on above: Performed By: #### L IVER, LIPID, TSH, FT3, T4 #### [facility] [address] [place] [address] Dr. Frank Hills METAMYELOCYTE # Normal [facility] Comment on above: Performed By: #### L IVER, LIPID, TSH, FT3, T4 #### [facility] [address] [place] [address] Dr. Frank Hills METAMYELOCYTE % Normal [facility] Comment on above: Performed By: #### L IVER, LIPID, TSH, FT3, T4 #### [facility] [address] [place] [address] Dr. Frank Hills MICROCYTOSIS 1+ Normal [facility] Comment on above: Performed By: #### L IVER, LIPID, TSH, FT3, T4 #### [facility] [address] [place] [address] Dr. Frank Hills MONOM# 0.28 103/ul Critically low 0.30-0.80 [facility] Comment on above: Performed By: #### L IVER, LIPID, TSH, FT3, T4 #### [facility] [address] [place] [address] Dr. Frank Hills MONOM% 10.0 % Normal 1.7-12.0 [facility] Comment on above: Performed By: #### L IVER, LIPID, TSH, FT3, T4 #### [facility] [address] [place] [address] Dr. Frank Hills MPV 8.9 fL Critically low 9.5-13.5 [facility] Comment on above: Performed By: #### L IVER, LIPID, TSH, FT3, T4 #### [facility] [address] [place] [address] Dr. Frank Hills MYELOCYTE # Normal [facility] Comment on above: Performed By: #### L IVER, LIPID, TSH, FT3, T4 #### [facility] [address] [place] [address] Dr. Frank Hills MYELOCYTE % Normal [facility] Comment on above: Performed By: #### L IVER, LIPID, TSH, FT3, T4 #### [facility] [address] [place] [address] Dr. Frank Hills NRBC Normal [facility] Comment on above: Performed By: #### L IVER, LIPID, TSH, FT3, T4 #### [facility] [address] [place] [address] Dr. Frank Hills PLT 169 103/ul Normal 150-450 [facility] Comment on above: Performed By: #### L IVER, LIPID, TSH, FT3, T4 #### [facility] [address] [address] [address] Frank Hills RBC 3.41 106/ul Critically low 4.20-5.40 [facility] Comment on above: Performed By: #### L IVER, LIPID, TSH, FT3, T4 #### [facility] [address] [place] [address] Dr. Frank Hills RDW 14.1 % Normal 11.0-15.0 [facility] Comment on above: Performed By: #### L IVER, LIPID, TSH, FT3, T4 #### [facility] [address] [place] [address] Dr. Frank Hills SEG # 1.99 103/ul Normal 1.40-6.50 [facility] Comment on above: Performed By: #### L IVER, LIPID, TSH, FT3, T4 #### [facility] [address] [place] [address] Dr. Frank Hills SEG % 71.0 % Normal 43.0-75.0 [facility] Comment on above: Performed By: #### L IVER, LIPID, TSH, FT3, T4 #### [facility] [address] [place] [address] Dr. Frank Hills WBC 2.8 103/ul Critically low 4.0-11.0 [facility] Comment on above: Performed By: #### L IVER, LIPID, TSH, FT3, T4 #### [facility] [address] [place] [address] Dr. Frank Hills FREE T3on 10-18-2022 FREE T3 2.61 pg/mlL Normal 2.18-3.98 [facility] Comment on above: Performed By: #### L IVER, LIPID, TSH, FT3, T4 #### [facility] [address] [place] [address] Dr. Frank Hills GLYCOHEMOGLOBIN A1Con 2021 ADA RECOMMENDATION SEE BELOW Normal [facility] Comment on above: Result Comment: ADA RECOMMENDED LIMIT 4.0 - 6.0 ADA THERAPEUTIC TARGET < 7.0 ACTION SUGGESTED > 7.0 Performed By: #### A 1C #### [facility] [address] [place] [address] Dr. Frank Hills Glucose [Mass/Vol] 108 mg/dL Normal [facility] Comment on above: Performed By: #### A 1C #### [facility] [address] [address] [address] Frank Hills HbA1c (Bld) [Mass fraction] 5.4 % Normal 4.5-6.2 [facility] Comment on above: Performed By: #### A 1C #### [facility] [address] [place] [address] Dr. Frank Hills IRONon 10-18-2022 Iron [Mass/Vol] 96.0 ug/dL Normal 50.0-170.0 [facility] Comment on above: Performed By: #### L IVER, LIPID, TSH, FT3, T4 #### [facility] [address] [place] [address] Dr. Frank Hills LIPID PROFILEon 10-18-2022 CHOL-HDL RATIO NORM SEE BELOW Normal [facility] Comment on above: Result Comment: 3.3 - 4.4 LOW RISK 4.4 - 7.1 AVERAGE RISK 7.1 - 11.0 MODERATE RISK >11.0 HIGH RISK Performed By: #### L IVER, LIPID, TSH, FT3, T4 #### [facility] [address] [place] [address] Dr. Frank Hills Cholesterol [Mass/Vol] 172 mg/dL Normal <=200 [facility] Comment on above: Performed By: #### L IVER, LIPID, TSH, FT3, T4 #### [facility] [address] [place] [address] Dr. Frank Hills Cholesterol in HDL [Mass/Vol] 66 mg/dL Critically high 40-60 [facility] Comment on above: Performed By: #### L IVER, LIPID, TSH, FT3, T4 #### [facility] [address] [address] [address] Frank Hills Cholesterol in LDL [Mass/Vol] 86.6 mg/dL Normal [facility] Comment on above: Performed By: #### L IVER, LIPID, TSH, FT3, T4 #### [facility] [address] [address] [address] Frank Hills Cholesterol.total/Ch olesterol in HDL [Mass ratio] 2.6 {ratio} Normal [facility] Comment on above: Performed By: #### L IVER, LIPID, TSH, FT3, T4 #### [facility] [address] [address] [address] Frank Hills HDL NORMAL > or = 60 mg/dl - LO W CARDIOVASCULAR RISK <40 mg/dl - HIGH CARDIOVASCULAR RISK Normal [facility] Comment on above: Performed By: #### L IVER, LIPID, TSH, FT3, T4 #### [facility] [address] [address] [address] Frank Hills LDL CALC NORMAL SEE BELOW Normal [facility] Comment on above: Result Comment: <100 mg/dl OPTIMAL 100 - 129 mg/dl NEAR OR ABOVE OPTIMAL 130 - 159 mg/dl BORDERLINE HIGH 160 - 189 mg/dl HIGH >190 mg/dl VERY HIGH Performed By: #### L IVER, LIPID, TSH, FT3, T4 #### [facility] [address] [address] [address] Frank Hills Triglyceride [Mass/Vol] 97 mg/dL Normal <=150 [facility] Comment on above: Performed By: #### L IVER, LIPID, TSH, FT3, T4 #### [facility] [address] [address] [address] Frank Hills VLDL CALC 19.4 mg/dL Normal [facility] Comment on above: Performed By: #### L IVER, LIPID, TSH, FT3, T4 #### [facility] [address] [address] [address] Frank Hills LIVER PROFILEon 10-18-2022 Albumin [Mass/Vol] 3.5 g/dL Normal 3.4-5.0 [facility] Comment on above: Performed By: #### L IVER, LIPID, TSH, FT3, T4 #### [facility] [address] [place] [address] Dr. Frank Hills Albumin/Globulin [Mass ratio] 1.2 {ratio} Normal [facility] Comment on above: Performed By: #### L IVER, LIPID, TSH, FT3, T4 #### [facility] [address] [place] [address] Dr. Frank Hills ALP [Catalytic activity/Vol] 55 U/L Normal 46-116 [facility] Comment on above: Performed By: #### L IVER, LIPID, TSH, FT3, T4 #### [facility] [address] [place] [address] Dr. Frank Hills ALT [Catalytic activity/Vol] 34 U/L Normal 14-59 [facility] Comment on above: Performed By: #### L IVER, LIPID, TSH, FT3, T4 #### [facility] [address] [place] [address] Dr. Frank Hills AST [Catalytic activity/Vol] 40 U/L Critically high 15-37 [facility] Comment on above: Performed By: #### L IVER, LIPID, TSH, FT3, T4 #### [facility] [address] [place] [address] Dr. Frank Hills BILI, CONJUGATED 0.2 mg/dL Normal 0.0-0.2 [facility] Comment on above: Performed By: #### L IVER, LIPID, TSH, FT3, T4 #### [facility] [address] [place] [address] Dr. Frank Hills Bilirubin [Mass/Vol] 0.8 mg/dL Normal 0.2-1.0 [facility] Comment on above: Performed By: #### L IVER, LIPID, TSH, FT3, T4 #### [facility] [address] [place] [address] Dr. Frank Hills Globulin (S) [Mass/Vol] 2.9 g/dL Normal [facility] Comment on above: Performed By: #### L IVER, LIPID, TSH, FT3, T4 #### [facility] [address] [place] [address] Dr. Frank Hills Protein [Mass/Vol] 6.4 g/dL Normal 6.4-8.2 [facility] Comment on above: Performed By: #### L IVER, LIPID, TSH, FT3, T4 #### [facility] [address] [place] [address] Dr. Frank Hills T4on 10-18-2022 T4 [Mass/Vol] 6.70 ug/dL Normal 4.80-13.90 [facility] Comment on above: Performed By: #### L IVER, LIPID, TSH, FT3, T4 #### [facility] [address] [place] [address] Dr. Frank Hills TSHon 10-18-2022 TSH 1.804 uIU/mL Normal 0.358-3.740 [facility] Comment on above: Performed By: #### L IVER, LIPID, TSH, FT3, T4 #### [facility] [address] [place] [address] Dr. Frank Hills VITAMIN D 25 OHon 10-18-2022 VIT D 25-OH 50.7 ng/mL Normal [facility] Comment on above: Performed By: #### L IVER, LIPID, TSH, FT3, T4 #### [facility] [address] [place] [address] Dr. Frank Hills VIT D RANGES SEE BELOW Normal [facility] Comment on above: Result Comment: <20 ng/mL Vit D deficient 20 - <30 ng/mL Vit D insufficient 30 - 100 ng/mL Vit D sufficient >100 ng/mL Potential Toxicity Performed By: #### L IVER, LIPID, TSH, FT3, T4 #### [facility] [address] [place] [address] Dr. Frank Hills MG MAMM SCREEN 3D BO CADon 08-31-2022 MG MAMM SCREEN 3D BO CAD Patient: DANYELLE HASKINS Exam Date: 08/31/2022 : 1955 Gender:F Ordering : DR JACK LANDAVERDE . Admission #: [id number] Family : YULISA BATRES . Order #: [id number] CLICK HERE TO VIEW EXAM RADIOLOGY REPORT [...] thyroid cancer at age 48. LOCATION: [facility] BREAST COMPOSITION: Scattered areas fibroglandular density. [...] MD on 08/31/2022 at 11:14 Normal [facility] XR DEXA BONE DENSITYon 08-27 XR [...] LISY SANDOVAL Date: 2022-08-27 18:41 Normal [facility] COMPLEMENT TOTAL (CH50)on Complement, Total (CH50) >60 Normal >41 [facility] Comment on above: Result Comment: Age [...] L IVER, LIPID, TSH, FT3, T4 #### [facility] [address] [place] [address] Dr. Frank Hills C3 and C4 COMPLEMENTon 08-01 Complement C3, Serum 146 mg/dL Normal 82-167 [facility] Comment on above: Performed By: #### L IVER, LIPID, TSH, FT3, T4 #### [facility] [address] [place] [address] Dr. Frank Hills Complement C4, Serum 38 mg/dL Normal 12-38 [facility] Comment on above: Performed By: #### L IVER, LIPID, TSH, FT3, T4 #### [facility] [address] [place] [address] Dr. Frank Hills CBC AUTO DIFFon 07-30-2022 BASO # 0.0 103/ul Normal 0.0-0.1 [facility] Comment on above: Performed By: #### C BC #### [facility] [address] [place] [address] Dr. Frank Hills Basophils/100 WBC (Bld) 0.9 % Normal 0.2-2.0 [facility] Comment on above: Performed By: #### C BC #### [facility] [address] [place] [address] Dr. Frank Hills EO # 0.1 103/ul Normal 0.0-0.7 [facility] Comment on above: Performed By: #### C BC #### [facility] [address] [place] [address] Dr. Frank Hills Eosinophils/100 WBC (Bld) 3.4 % Normal 0.9-7.0 [facility] Comment on above: Performed By: #### C BC #### [facility] [address] [place] [address] Dr. Frank Hills Erythrocyte distribution width (RBC) [Ratio] 13.8 % Normal 11.0-15.0 [facility] Comment on above: Performed By: #### C BC #### [facility] [address] [address] [address] Frank Hills Hematocrit (Bld) [Volume fraction] 36.6 % Normal 36.0-48.0 [facility] Comment on above: Performed By: #### C BC #### [facility] [address] [address] [address] Frank Hills Hemoglobin (Bld) [Mass/Vol] 11.8 g/dL Critically low 12.0-16.0 [facility] Comment on above: Performed By: #### C BC #### [facility] [address] [address] [address] Frank Hills IG # 0.01 10e3/ul Normal 0.00-0.03 [facility] Comment on above: Performed By: #### C BC #### [facility] [address] [place] [address] Dr. Frank Hills IG % 0.3 % Normal 0.0-0.5 [facility] Comment on above: Performed By: #### C BC #### [facility] [address] [address] [address] Frank Hills LYMPH # 0.6 103/ul Critically low 1.2-3.8 [facility] Comment on above: Performed By: #### C BC #### [facility] [address] [address] [address] Frank Hills Lymphocytes/100 WBC (Bld) 18.1 % Critically low 20.5-60.0 [facility] Comment on above: Performed By: #### C BC #### [facility] [address] [address] [address] Frank Hills MANUAL DIFF REQ NO Normal [facility] Comment on above: Performed By: #### C BC #### [facility] [address] [place] [address] Dr. Frank Hills MCH (RBC) [Entitic mass] 33.6 pg Normal 26.7-34.0 [facility] Comment on above: Performed By: #### C BC #### [facility] [address] [address] [address] Frank Hills MCHC (RBC) [Mass/Vol] 32.2 g/dL Normal 29.9-35.2 [facility] Comment on above: Performed By: #### C BC #### [facility] [address] [address] [address] Frank Hills MCV (RBC) [Entitic vol] 104.3 fL Critically high 81.0-99.0 [facility] Comment on above: Performed By: #### C BC #### [facility] [address] [place] [address] Dr. Frank Hills MONO # 0.4 103/ul Normal 0.3-0.8 [facility] Comment on above: Performed By: #### C BC #### [facility] [address] [place] [address] Dr. Frank Hills Monocytes/100 WBC (Bld) 11.2 % Normal 1.7-12.0 [facility] Comment on above: Performed By: #### C BC #### [facility] [address] [place] [address] Dr. Frank Hills NEUT # 2.3 103/ul Normal 1.4-6.5 [facility] Comment on above: Performed By: #### C BC #### [facility] [address] [place] [address] Dr. Frank Hills Neutrophils/100 WBC (Bld) 66.1 % Normal 43.0-75.0 [facility] Comment on above: Performed By: #### C BC #### [facility] [address] [place] [address] Dr. Frank Hills Platelet mean volume (Bld) [Entitic vol] 8.9 fL Critically low 9.5-13.5 [facility] Comment on above: Performed By: #### C BC #### [facility] [address] [place] [address] Dr. Frank Hills PLT 213 103/ul Normal 150-450 [facility] Comment on above: Performed By: #### C BC #### [facility] [address] [place] [address] Dr. Frank Hills RBC 3.51 106/ul Critically low 4.20-5.40 [facility] Comment on above: Performed By: #### C BC #### [facility] [address] [place] [address] Dr. Frank Hlils WBC 3.5 103/ul Critically low 4.0-11.0 [facility] Comment on above: Performed By: #### C BC #### [facility] [address] [place] [address] Dr. Frank Hills PROF 14(COMP METB)on 022 Albumin [Mass/Vol] 3.7 g/dL Normal 3.4-5.0 [facility] Comment on above: Performed By: #### L IVER, LIPID, TSH, FT3, T4 #### [facility] [address] [place] [address] Dr. Frank Hills Albumin/Globulin [Mass ratio] 1.2 {ratio} Normal [facility] Comment on above: Performed By: #### L IVER, LIPID, TSH, FT3, T4 #### [facility] [address] [place] [address] Dr. Frank Hills ALP [Catalytic activity/Vol] 59 U/L Normal 46-116 [facility] Comment on above: Performed By: #### L IVER, LIPID, TSH, FT3, T4 #### [facility] [address] [place] [address] Dr. Frank Hills ALT [Catalytic activity/Vol] 23 U/L Normal 14-59 [facility] Comment on above: Performed By: #### L IVER, LIPID, TSH, FT3, T4 #### [facility] [address] [place] [address] Dr. Frank Hills Anion gap [Moles/Vol] 10.2 mmol/L Normal [facility] Comment on above: Performed By: #### L IVER, LIPID, TSH, FT3, T4 #### [facility] [address] [place] [address] Dr. Frank Hills AST [Catalytic activity/Vol] 24 U/L Normal 15-37 [facility] Comment on above: Performed By: #### L IVER, LIPID, TSH, FT3, T4 #### [facility] [address] [place] [address] Dr. Frank Hills Bilirubin [Mass/Vol] 0.6 mg/dL Normal 0.2-1.0 [facility] Comment on above: Performed By: #### L IVER, LIPID, TSH, FT3, T4 #### [facility] [address] [place] [address] Dr. Frank Hills Calcium [Mass/Vol] 8.9 mg/dL Normal 8.5-10.1 [facility] Comment on above: Performed By: #### L IVER, LIPID, TSH, FT3, T4 #### [facility] [address] [place] [address] Dr. Frank Hills Chloride [Moles/Vol] 105 mmol/L Normal 98-107 [facility] Comment on above: Performed By: #### L IVER, LIPID, TSH, FT3, T4 #### [facility] [address] [place] [address] Dr. Frank Hills CO2 [Moles/Vol] 30.0 mmol/L Normal 21.0-32.0 [facility] Comment on above: Performed By: #### L IVER, LIPID, TSH, FT3, T4 #### [facility] [address] [place] [address] Dr. Frank Hills Creatinine [Mass/Vol] 0.64 mg/dL Normal 0.55-1.02 [facility] Comment on above: Performed By: #### L IVER, LIPID, TSH, FT3, T4 #### [facility] [address] [place] [address] Dr. Frank Hills EGFR-AF HONDURAN >60 Normal >=60 [facility] Comment on above: Performed By: #### L IVER, LIPID, TSH, FT3, T4 #### [facility] [address] [place] [address] Dr. Frank Hills EGFR-NON AF HONDURAN >60 Normal >=60 [facility] Comment on above: Performed By: #### L IVER, LIPID, TSH, FT3, T4 #### [facility] [address] [place] [address] Dr. Frank Hills Globulin (S) [Mass/Vol] 3.0 g/dL Normal [facility] Comment on above: Performed By: #### L IVER, LIPID, TSH, FT3, T4 #### [facility] [address] [address] [address] Frank Hills Glucose [Mass/Vol] 97 mg/dL Normal 74-106 [facility] Comment on above: Performed By: #### L IVER, LIPID, TSH, FT3, T4 #### [facility] [address] [place] [address] Dr. Frank Hills Potassium [Moles/Vol] 4.2 mmol/L Normal 3.5-5.1 [facility] Comment on above: Performed By: #### L IVER, LIPID, TSH, FT3, T4 #### [facility] [address] [place] [address] Dr. Frank Hills Protein [Mass/Vol] 6.7 g/dL Normal 6.4-8.2 [facility] Comment on above: Performed By: #### L IVER, LIPID, TSH, FT3, T4 #### [facility] [address] [place] [address] Dr. Frank Hills Sodium [Moles/Vol] 141 mmol/L Normal 136-145 [facility] Comment on above: Performed By: #### L IVER, LIPID, TSH, FT3, T4 #### [facility] [address] [place] [address] Dr. Frank Hills Urea nitrogen [Mass/Vol] 13.0 mg/dL Normal 7.0-18.0 [facility] Comment on above: Performed By: #### L IVER, LIPID, TSH, FT3, T4 #### [facility] [address] [address] [address] Frank Hills Urea nitrogen/Creatinine [Mass ratio] 20.3 mg/mg Normal [facility] Comment on above: Performed By: #### L IVER, LIPID, TSH, FT3, T4 #### [facility] [address] [place] [address] Dr. Frank Hills SED RATE WESTERGREN 2021 SED RATE 8 mm/hr Normal <=30 [facility] Comment on above: Performed By: #### L IVER, LIPID, TSH, FT3, T4 #### [facility] [address] [place] [address] Dr. Frank Hills UA RANDOM W/MICROSCOPICon BACTERIA NONE SEEN Normal NONE SEEN [facility] Comment on above: Performed By: #### L IVER, LIPID, TSH, FT3, T4 #### [facility] [address] [place] [address] Dr. Frank Hills Bilirubin Ql (U) Negative Normal NEGATIVE [facility] Comment on above: Performed By: #### L IVER, LIPID, TSH, FT3, T4 #### [facility] [address] [place] [address] Dr. Frank Hills CAST NONE SEEN Normal NONE SEEN [facility] Comment on above: Performed By: #### L IVER, LIPID, TSH, FT3, T4 #### [facility] [address] [place] [address] Dr. Frank Hills Clarity (U) CLEAR Normal CLEAR [facility] Comment on above: Performed By: #### L IVER, LIPID, TSH, FT3, T4 #### [facility] [address] [place] [address] Dr. Frank Hills Color (U) LT. YELLOW Normal YELLOW [facility] Comment on above: Performed By: #### L IVER, LIPID, TSH, FT3, T4 #### [facility] [address] [place] [address] Dr. Frank Hills Crystals LM Nom (Urine sed) NONE SEEN Normal NONE SEEN [facility] Comment on above: Performed By: #### L IVER, LIPID, TSH, FT3, T4 #### [facility] [address] [place] [address] Dr. Frank Hills Epithelial cells LM Ql (Urine sed) FEW Abnormal NONE SEEN /RARE [facility] Comment on above: Performed By: #### L IVER, LIPID, TSH, FT3, T4 #### [facility] [address] [place] [address] Dr. Frank Hills Glucose Ql (U) Negative Normal NEGATIVE [facility] Comment on above: Performed By: #### L IVER, LIPID, TSH, FT3, T4 #### [facility] [address] [place] [address] Dr. Frank Hills Hemoglobin Ql (U) Negative Normal NEGATIVE [facility] Comment on above: Performed By: #### L IVER, LIPID, TSH, FT3, T4 #### [facility] [address] [place] [address] Dr. Frank Hills Ketones Ql (U) Negative Normal NEGATIVE [facility] Comment on above: Performed By: #### L IVER, LIPID, TSH, FT3, T4 #### [facility] [address] [place] [address] Dr. Frank Hills LEUKOCYTES TRACE Abnormal NEGATIVE [facility] Comment on above: Performed By: #### L IVER, LIPID, TSH, FT3, T4 #### [facility] [address] [place] [address] Dr. Frank Hills MUCOUS NONE SEEN Normal NONE SEEN [facility] Comment on above: Performed By: #### L IVER, LIPID, TSH, FT3, T4 #### [facility] [address] [place] [address] Dr. Frank Hills Nitrite Ql (U) Negative Normal NEGATIVE [facility] Comment on above: Performed By: #### L IVER, LIPID, TSH, FT3, T4 #### [facility] [address] [place] [address] Dr. Frank Hills pH (U) 6.5 [pH] Normal 5-9 [facility] Comment on above: Performed By: #### L IVER, LIPID, TSH, FT3, T4 #### [facility] [address] [place] [address] Dr. Frank Hills RBC 0-2 Normal 0-2 [facility] Comment on above: Performed By: #### L IVER, LIPID, TSH, FT3, T4 #### [facility] [address] [address] [address] Frank Hills SPEC GRAVITY 1.025 Normal 1.005-<=1.025 [facility] Comment on above: Performed By: #### L IVER, LIPID, TSH, FT3, T4 #### [facility] [address] [address] [address] Frank Hills UA PROTEIN Negative Normal NEGATIVE/ TRACE [facility] Comment on above: Performed By: #### L IVER, LIPID, TSH, FT3, T4 #### [facility] [address] [place] [address] Dr. Frank Hills Urobilinogen Qn (U) 0.2 {Flaquita'U}/dL Normal 0.2 - 1. 0 [facility] Comment on above: Performed By: #### L IVER, LIPID, TSH, FT3, T4 #### [facility] [address] [address] [address] Frank Hills WBC 0-2 Abnormal NONE SEEN [facility] Comment on above: Performed By: #### L IVER, LIPID, TSH, FT3, T4 #### [facility] [address] [address] [address] Frank Hills C3 and C4 COMPLEMENTon 04-21 Complement C3, Serum 171 mg/dL Critically high 82-167 [facility] Comment on above: Performed By: #### L IVER, LIPID, TSH, FT3, T4 #### [facility] [address] [address] [address] Frank Hills Complement C4, Serum 40 mg/dL Critically high 12-38 [facility] Comment on above: Performed By: #### L IVER, LIPID, TSH, FT3, T4 #### [facility] [address] [address] [address] Frank Hills COMPLEMENT TOTAL (CH50)on Complement, Total (CH50) >60 Normal >41 [facility] Comment on above: Result Comment: Age Male [...] L IVER, LIPID, TSH, FT3, T4 #### [facility] [address] [place] [address] Dr. Frank Hills CBC AUTO DIFFon 04-20-2022 BASO # 0.0 103/ul Normal 0.0-0.1 [facility] Comment on above: Performed By: #### L IVER, LIPID, TSH, FT3, T4 #### [facility] [address] [place] [address] Dr. Frank Hills Basophils/100 WBC (Bld) 0.4 % Normal 0.2-2.0 [facility] Comment on above: Performed By: #### L IVER, LIPID, TSH, FT3, T4 #### [facility] [address] [place] [address] Dr. Frank Hills EO # 0.1 103/ul Normal 0.0-0.7 [facility] Comment on above: Performed By: #### L IVER, LIPID, TSH, FT3, T4 #### [facility] [address] [place] [address] Dr. Frank Hills Eosinophils/100 WBC (Bld) 1.7 % Normal 0.9-7.0 [facility] Comment on above: Performed By: #### L IVER, LIPID, TSH, FT3, T4 #### [facility] [address] [place] [address] Dr. Frank Hills Erythrocyte distribution width (RBC) [Ratio] 13.2 % Normal 11.0-15.0 [facility] Comment on above: Performed By: #### L IVER, LIPID, TSH, FT3, T4 #### [facility] [address] [place] [address] Dr. Frank Hills Hematocrit (Bld) [Volume fraction] 39.6 % Normal 36.0-48.0 [facility] Comment on above: Performed By: #### L IVER, LIPID, TSH, FT3, T4 #### [facility] [address] [place] [address] Dr. Frank Hills Hemoglobin (Bld) [Mass/Vol] 12.7 g/dL Normal 12.0-16.0 [facility] Comment on above: Performed By: #### L IVER, LIPID, TSH, FT3, T4 #### [facility] [address] [place] [address] Dr. Frank Hills IG # 0.02 10e3/ul Normal 0.00-0.03 [facility] Comment on above: Performed By: #### L IVER, LIPID, TSH, FT3, T4 #### [facility] [address] [place] [address] Dr. Frank Hills IG % 0.4 % Normal 0.0-0.5 [facility] Comment on above: Performed By: #### L IVER, LIPID, TSH, FT3, T4 #### [facility] [address] [place] [address] Dr. Frank Hills LYMPH # 0.9 103/ul Critically low 1.2-3.8 [facility] Comment on above: Performed By: #### L IVER, LIPID, TSH, FT3, T4 #### [facility] [address] [place] [address] Dr. Frank Hills Lymphocytes/100 WBC (Bld) 17.3 % Critically low 20.5-60.0 [facility] Comment on above: Performed By: #### L IVER, LIPID, TSH, FT3, T4 #### [facility] [address] [place] [address] Dr. Frank Hills MANUAL DIFF REQ NO Normal [facility] Comment on above: Performed By: #### L IVER, LIPID, TSH, FT3, T4 #### [facility] [address] [place] [address] Dr. Frank Hills MCH (RBC) [Entitic mass] 33.7 pg Normal 26.7-34.0 [facility] Comment on above: Performed By: #### L IVER, LIPID, TSH, FT3, T4 #### [facility] [address] [place] [address] Dr. Frank Hills MCHC (RBC) [Mass/Vol] 32.1 g/dL Normal 29.9-35.2 [facility] Comment on above: Performed By: #### L IVER, LIPID, TSH, FT3, T4 #### [facility] [address] [place] [address] Dr. Frank Hills MCV (RBC) [Entitic vol] 105.0 fL Critically high 81.0-99.0 [facility] Comment on above: Performed By: #### L IVER, LIPID, TSH, FT3, T4 #### [facility] [address] [place] [address] Dr. Frank Hills MONO # 0.5 103/ul Normal 0.3-0.8 [facility] Comment on above: Performed By: #### L IVER, LIPID, TSH, FT3, T4 #### [facility] [address] [place] [address] Dr. Frank Hills Monocytes/100 WBC (Bld) 8.9 % Normal 1.7-12.0 [facility] Comment on above: Performed By: #### L IVER, LIPID, TSH, FT3, T4 #### [facility] [address] [place] [address] Dr. Frank Hills NEUT # 3.7 103/ul Normal 1.4-6.5 [facility] Comment on above: Performed By: #### L IVER, LIPID, TSH, FT3, T4 #### [facility] [address] [place] [address] Dr. Frank Hills Neutrophils/100 WBC (Bld) 71.3 % Normal 43.0-75.0 [facility] Comment on above: Performed By: #### L IVER, LIPID, TSH, FT3, T4 #### [facility] [address] [address] [address] Frank Hills Platelet mean volume (Bld) [Entitic vol] 8.9 fL Critically low 9.5-13.5 [facility] Comment on above: Performed By: #### L IVER, LIPID, TSH, FT3, T4 #### [facility] [address] [place], [place] [address] Dr. Frank Hills PLT 198 103/ul Normal 150-450 [facility] Comment on above: Performed By: #### L IVER, LIPID, TSH, FT3, T4 #### [facility] [address] [place], [place] [address] Dr. Frank Hills RBC 3.77 106/ul Critically low 4.20-5.40 [facility] Comment on above: Performed By: #### L IVER, LIPID, TSH, FT3, T4 #### [facility] [address] [address] [address] Frank Hills WBC 5.2 103/ul Normal 4.0-11.0 [facility] Comment on above: Performed By: #### L IVER, LIPID, TSH, FT3, T4 #### [facility] [address] [address] [address] Frank Hills MRI BRAIN [facility] MRI BRAIN [facility] EXAMINATION: MRI BRA IN [facility], 04/20/2022 9:23 AM EDT HISTORY: Headache COMPARISON: [...] CHARO MAY Date: 2022-04-20 16:44 Normal [facility] PROF 14(COMP METB)on 022 Albumin [Mass/Vol] 4.0 g/dL Normal 3.4-5.0 [facility] Comment on above: Performed By: #### L IVER, LIPID, TSH, FT3, T4 #### [facility] [address] [place] [address] Dr. Frank Hills Albumin/Globulin [Mass ratio] 1.1 {ratio} Normal [facility] Comment on above: Performed By: #### L IVER, LIPID, TSH, FT3, T4 #### [facility] [address] [place] [address] Dr. Frank Hills ALP [Catalytic activity/Vol] 68 U/L Normal 46-116 [facility] Comment on above: Performed By: #### L IVER, LIPID, TSH, FT3, T4 #### [facility] [address] [place] [address] Dr. Frank Hills ALT [Catalytic activity/Vol] 35 U/L Normal 14-59 [facility] Comment on above: Performed By: #### L IVER, LIPID, TSH, FT3, T4 #### [facility] [address] [place] [address] Dr. Frank Hills Anion gap [Moles/Vol] 10.1 mmol/L Normal [facility] Comment on above: Performed By: #### L IVER, LIPID, TSH, FT3, T4 #### [facility] [address] [place] [address] Dr. Frank Hills AST [Catalytic activity/Vol] 31 U/L Normal 15-37 [facility] Comment on above: Performed By: #### L IVER, LIPID, TSH, FT3, T4 #### [facility] [address] [address] [address] Frank Hills Bilirubin [Mass/Vol] 0.9 mg/dL Normal 0.2-1.0 [facility] Comment on above: Performed By: #### L IVER, LIPID, TSH, FT3, T4 #### [facility] [address] [address] [address] Frank Hills Calcium [Mass/Vol] 9.0 mg/dL Normal 8.5-10.1 [facility] Comment on above: Performed By: #### L IVER, LIPID, TSH, FT3, T4 #### [facility] [address] [place] [address] Dr. Frank Hills Chloride [Moles/Vol] 104 mmol/L Normal 98-107 [facility] Comment on above: Performed By: #### L IVER, LIPID, TSH, FT3, T4 #### [facility] [address] [place] [address] Dr. Frank Hills CO2 [Moles/Vol] 29.7 mmol/L Normal 21.0-32.0 [facility] Comment on above: Performed By: #### L IVER, LIPID, TSH, FT3, T4 #### [facility] [address] [place] [address] Dr. Frank Hills Creatinine [Mass/Vol] 0.68 mg/dL Normal 0.55-1.02 [facility] Comment on above: Performed By: #### L IVER, LIPID, TSH, FT3, T4 #### [facility] [address] [place] [address] Dr. Frank Hills EGFR-AF HONDURAN >60 Normal >=60 [facility] Comment on above: Performed By: #### L IVER, LIPID, TSH, FT3, T4 #### [facility] [address] [place] [address] Dr. Frank Hills EGFR-NON AF HONDURAN >60 Normal >=60 [facility] Comment on above: Performed By: #### L IVER, LIPID, TSH, FT3, T4 #### [facility] [address] [place] [address] Dr. Frank Hills Globulin (S) [Mass/Vol] 3.5 g/dL Normal [facility] Comment on above: Performed By: #### L IVER, LIPID, TSH, FT3, T4 #### [facility] [address] [place] [address] Dr. Frank Hills Glucose [Mass/Vol] 92 mg/dL Normal 74-106 [facility] Comment on above: Performed By: #### L IVER, LIPID, TSH, FT3, T4 #### [facility] [address] [place] [address] Dr. Frank Hills Potassium [Moles/Vol] 3.8 mmol/L Normal 3.5-5.1 [facility] Comment on above: Performed By: #### L IVER, LIPID, TSH, FT3, T4 #### [facility] [address] [place] [address] Dr. Frank Hills Protein [Mass/Vol] 7.5 g/dL Normal 6.4-8.2 [facility] Comment on above: Performed By: #### L IVER, LIPID, TSH, FT3, T4 #### [facility] [address] [place] [address] Dr. Frank Hills Sodium [Moles/Vol] 140 mmol/L Normal 136-145 [facility] Comment on above: Performed By: #### L IVER, LIPID, TSH, FT3, T4 #### [facility] [address] [place] [address] Dr. Frank Hills Urea nitrogen [Mass/Vol] 14.0 mg/dL Normal 7.0-18.0 [facility] Comment on above: Performed By: #### L IVER, LIPID, TSH, FT3, T4 #### [facility] [address] [place] [address] Dr. Frank Hills Urea nitrogen/Creatinine [Mass ratio] 20.6 mg/mg Normal [facility] Comment on above: Performed By: #### L IVER, LIPID, TSH, FT3, T4 #### [facility] [address] [place] [address] Dr. Frank Hills SED RATE [facility] 2021 SED RATE 6 mm/hr Normal <=30 [facility] Comment on above: Performed By: #### S EDR #### [facility] [address] [place] [address] Dr. Frank Hills UA RANDOM W/MICROSCOPICon BACTERIA NONE SEEN Normal NONE SEEN [facility] Comment on above: Performed By: #### L IVER, LIPID, TSH, FT3, T4 #### [facility] [address] [place] [address] Dr. Frank Hills Bilirubin Ql (U) Negative Normal NEGATIVE [facility] Comment on above: Performed By: #### L IVER, LIPID, TSH, FT3, T4 #### [facility] [address] [place] [address] Dr. Frank Hills CAST NONE SEEN Normal NONE SEEN [facility] Comment on above: Performed By: #### L IVER, LIPID, TSH, FT3, T4 #### [facility] [address] [place] [address] Dr. Frank Hills Clarity (U) CLEAR Normal CLEAR [facility] Comment on above: Performed By: #### L IVER, LIPID, TSH, FT3, T4 #### [facility] [address] [place] [address] Dr. Frank Hills Color (U) LT. YELLOW Normal YELLOW [facility] Comment on above: Performed By: #### L IVER, LIPID, TSH, FT3, T4 #### [facility] [address] [place] [address] Dr. Frank Hills Crystals LM Nom (Urine sed) NONE SEEN Normal NONE SEEN [facility] Comment on above: Performed By: #### L IVER, LIPID, TSH, FT3, T4 #### [facility] [address] [place] [address] Dr. Frank Hills Epithelial cells LM Ql (Urine sed) RARE Normal NONE SEEN /RARE [facility] Comment on above: Performed By: #### L IVER, LIPID, TSH, FT3, T4 #### [facility] [address] [address] [address] Frank Hills Glucose Ql (U) Negative Normal NEGATIVE [facility] Comment on above: Performed By: #### L IVER, LIPID, TSH, FT3, T4 #### [facility] [address] [place] [address] Dr. Frank Hills Hemoglobin Ql (U) Negative Normal NEGATIVE [facility] Comment on above: Performed By: #### L IVER, LIPID, TSH, FT3, T4 #### [facility] [address] [place] [address] Dr. Frank Hills Ketones Ql (U) Negative Normal NEGATIVE [facility] Comment on above: Performed By: #### L IVER, LIPID, TSH, FT3, T4 #### [facility] [address] [place] [address] Dr. Frank Hills LEUKOCYTES Negative Normal NEGATIVE [facility] Comment on above: Performed By: #### L IVER, LIPID, TSH, FT3, T4 #### [facility] [address] [place] [address] Dr. Frank Hills MUCOUS TRACE Abnormal NONE SEEN [facility] Comment on above: Performed By: #### L IVER, LIPID, TSH, FT3, T4 #### [facility] [address] [place] [address] Dr. Frank Hills Nitrite Ql (U) Negative Normal NEGATIVE [facility] Comment on above: Performed By: #### L IVER, LIPID, TSH, FT3, T4 #### [facility] [address] [place] [address] Dr. Frank Hills pH (U) 6.0 [pH] Normal 5-9 [facility] Comment on above: Performed By: #### L IVER, LIPID, TSH, FT3, T4 #### [facility] [address] [place] [address] Dr. Frank Hills RBC NONE SEEN Abnormal 0-2 [facility] Comment on above: Performed By: #### L IVER, LIPID, TSH, FT3, T4 #### [facility] [address] [place] [address] Dr. Frank Hills SPEC GRAVITY 1.020 Normal 1.005-<=1.025 The [facility] Comment on above: Performed By: #### L IVER, LIPID, TSH, FT3, T4 #### [facility] [address] [address] [address] Frank Hills UA PROTEIN Negative Normal NEGATIVE/ TRACE [facility] Comment on above: Performed By: #### L IVER, LIPID, TSH, FT3, T4 #### [facility] [address] [address] [address] Frank Hills Urobilinogen Qn (U) 0.2 {Flaquita'U}/dL Normal 0.2 - 1. 0 [facility] Comment on above: Performed By: #### L IVER, LIPID, TSH, FT3, T4 #### [facility] [address] [address] [address] Frank Hills WBC NONE SEEN Normal NONE SEEN [facility] Comment on above: Performed By: #### L IVER, LIPID, TSH, FT3, T4 #### [facility] [address] [address] [address] Frank Hills Ambulatory Clinical Summaryo 10-27-2021 Ambulatory Clinical Summary {[id number] Normal [facility] Patient Educationon 10-27-20 Patient Education Urology Urinary [...] nerve stimulation). ? For women, using a clinical medical transcriptionist to prevent urine leaks. This is a [...] after experiencing incontinence. General instructions ? Take qsox-jox-nvysqjt and prescription medicines only as (more content not included)... Normal [facility] Urology Office/Clinic Noteon 10-27-2021 Urology Office/Clinic Note [...] urine and/or bladder capacity by US- non-imaging 65032 Urnls Dip Stick Auto w/o Microscopy POC [id number] I have reviewed the previous health record information and history for this patient from Dr. Ramos Follow-up With When Contact Information Richard Leal MD, Maximo Dhaliwal, URO Only if needed [facility] [address], [place] [address]- Additional Instructions: Patient Education Urinary Incontinence I, [...] Diverticulosis Dysuria Encounter for screening colonoscopy for sfz-xrhz-utwn patient Hemifacial spasm History of shingles Hyperlipidemia Hypertension Hyperthyroidism Insomnia Nocturia Osteoarthritis Polyneuropathy Post-void dribbling Raynaud phenomenon Recurrent UTI Rosacea Urethral stricture Historical No qualifying data Procedure/Surgical History Hip replacement (12/13/2016), Fusion of lumbar spine (12/06/2011), Ablation (08/18/2005), Excision of sebaceous cyst (08/27/1999), Arthroscopy of knee, Dilatation and curettage, Excision of ganglion cyst, E (more content not included)... Normal [facility] Comment on above: Result Comment: Elec tronically Signed By: Richard Leal MD, Maximo Dhaliwal\.br\Date and Time Signed: 10/27/21 11:16 EST\.br\Electronically Co-Signed By: Snow Lundberg MA\.br\Date and Time Co-Signed: 10/27/21 11:12 EST Ambulatory Clinical Summaryo n 04-23-2021 Ambulatory Clinical Summary {[id number] Normal [facility] Patient Educationon 04-23-20 Patient Education Urinary Frequency [...] It is (more content not included)... Normal [facility] Urology Office/Clinic Noteon 04-23-2021 Urology Office/Clinic Note [...] procedure, # 2 cap(s), Refills(s) 0, Pharmacy: [facility]/pharmacy #[id number], 172.7, cm, 02/24/21 8:22:00 EDT, Height/Length Dosing, 99.8, kg, 02/24/21 8:21:00 EDT... Urnls Dip Stick Auto w/o Microscopy POC 03652 I have reviewed the previous health record information and history for this pt. from Dr. Ramos. Follow-up With When Contact Information Richard Leal MD, Maximo Dhaliwal, URO [address] [id number]- Additional Instructions: 6mos. pvr Patient Education Urinary [...] Diverticulosis Dysuria Encounter for screening colonoscopy for mqf-ighv-lrdp patient Hemifacial spasm History of shingles Hyperlipidemia Hypertension Hyperthyroidism Insomnia Osteoarthritis Polyneuropathy (more content not included)... Normal [facility] Comment on above: Result Comment: Elec tronically Signed By: Richard Leal MD, Maximo Dhaliwal\.br\Date and Time Signed: 04/23/21 12:21 EDT\.br\Electronically Co-Signed By: Indu Gonzalez MA\.br\Date and Time Co-Signed: 04/23/21 11:40 EDT Coding Summary.on 03-16-2021 Coding Summary. [id number] Gh 0bWw+PGhlYWQ+NZ7AFMOeS 82khMUrzA6MV6zLTY6LVJY PIWPUYJ9VTO2cqJX9HHukV 2VybiAv CvhsaHDaEP85OEq4BUG6bE mzXThpiJ4qbNPjH0p3GqQj TZ06iU69YJhnOKReIqK7Pz ZpbjsgbWFy S4saTqMobCApToz+PHRhYm xlIHdpZHRoPScxMDAlJyBz cFxeZZ5fFo5fOEIkFTGomA xhcHNlOiBj t3ovBRZzZAmbBO7ttDcrD2 QhmXT1KHHxb1v1An03gAU+ XPXwAYI9mPdiKMedn028An Ynr4geDXK0 bDZsIJzaZUH1A34av8A6PX HqZZIaVUW6wTL4aS5goQtg xituZ5CjbRKdOuP2ODC4qS WmnY8nxToc nkyroV8kTmq+K09LTN7SUZ GYLI6GTwq9C6ZwMnypvMK+ GF09XRRfCZ42bLXoyPTeh3 ydlSo1NjPv GRYdLZT0fUtsIChnm1QsKX QjO60adYIns7C9SVBxpIdy gRJdKlAbnUF7pE4lTDzvfn oos4xoufko Yztpa5mtar87zE79A83dGP zaXOBzBKL7AVGxAKOvvFih ek3yhX1fXc5+YDfgd7rwk8 dqcAl6WcHn WNXwzpOecWoqTAJ7e3VyCq 55E0JseQmaz4QdShh1oa43 qEMpc7U2zZU9ZLmtDQSiyN 7fTAizPaL2 SKSkPqUdpW24gRVtNEakMq 6jbXopvSrrAI8jLPPjclou LHIonO3xMFPysGVpgZubPX 4wNTBpbjtm j686ZiXaERI2AAUnyKDjA8 MndJ0mBzHjZVFrCXJuS1Oc eKJpUXvpB903PQmqEkY0MF HxruNuF2Zq VYZvkOqsBaO5b0J6Aw8Hn3 JmmswnTGL2HLptFLL4GqYx FmDdVbD0N0NbGxl2BEBdwC qhVL3kI3Sy FFJmxefkgbxxnVH5TDJzRI FlmO77nPNhHXtoUl6ia6A2 x084KVGvDHZjzA88Mw6raN ogMTBwdCBU fM6vehpzs2kgvnkxJoXdDG ZcDYk6PLt8QKBzfXwlQhHn IKL8GjA2DYR4eZOseA5hnH ufsmlciF4l Oyc+U28esW1lJQZ7IRR7yg ivXAXmwwXeYU10BP41I0Yx PjwvdGFibGU+PGRpdiBzdH ryAB2lHpEa t9gtm5DuSFywR3XvFJZcGN etQes0HHEsFUD9bKW6iR0k AXGmFTach1S2bWK4M9Wtlf Uzwz6yg1be IJAaSVcvD42lzEAvo1D4EJ KjmQJ1FQHdlOrsBdKurP23 Oyc+HTEqdGbea2PuAqbkh5 wcm1leyPt4 GjZrBMMvupBovGadSMO1b1 EnTs48M82hNWndJKEpFHLt YUJzEVJojYuhwk6qmS8zRt 8+PGNvbCB3 cJT7lW3gONRfWdE9MGsxK9 63YeJaaWLwPkddk8uhb3cp kWu1HuCyKGYacbNyxZtmHG P9f9OfCk66 Y68aWNyaBCKsSTZeBWDuPY ChwUixvj3qvZ0iJz0+PC9j v4bcfv94rJ04jKB+PHRkIH I9zUkvLRge ITVpoC2kARlwBwU3KQAiRm DdwW61yVOjUIhmUm9lcAhg jVnnTX4rKEGceztyu278Ip Mbb1iyTMHt bRGsNKbbUYL2A85xb7P1AS NaGESxBDV2xRP9pT9htFov bjogbGVmdDsgdmVydGljYW zmYPaeY106 IHRvcDsnPlBhdGllbnQgTm XqWQk2B0PiFxf0ZBDlaEbk QQ7cuRXyDWqnGb0dqRybmM htAF7uJDZt egodv775LzWqy5brFYAewF EhJCvhOZW7E90fl1S6AMUk ZORaEVY7iTX8cL2ktUzwhj ogbGVmdDsg otDnpYbyUBtqKFjjG719PZ RvcDsnPkJpcnRoIERhdGU6 JW42YS09pNMnc7C2eDB3I2 BhZGRpbmct jffsfCU8GLZpTAQlkQ66Jz 1weTteNc7bMCIvMPP4KQOx cDMaH4NrtT5nMfBgVFEgXU KiI2WhyTOx XBbsP123UEfyEqE1XOZvqp NfD7FwOJGmfOszWsS6b7N2 Vr9PG1W9OI52MD72vWNuo2 H8oVJ3X8Lw DRAielfrpzuegZN7LPTxYW SpeZ53Jw2cpTrmDa3sEQJg VFN8EVMwvERpS6JvfR5yQw AjMDAwMDAw D2KmtRFtHElfV097ZYfqYz I7NIUdnlGfN5TwXIOhfGbw UwV0y5R8Uw5IOYs5IC15FL 69qRRld2C2 mXF4L0WrLJYmxgewifmauF S9QRRrUZKweU35Aw7otYub Sz3lDARhFIL5LWNgzJYbF3 HmzY3yHoSk IMAmHGKgZ9JcuFOdVFrlC6 18OZceNiX9FVTkowEpF0Qz BZDaaYltInK6h5I8Fd3ALF YiWE54RKP3 bWG4XM50IL15Q0NpXaixyT FibGU+PHRhYmxlIHdpZHRo EPuzEHApYjTfoFlmSL9tEm 9yZGVyLWNv aMpyoIBlUaJsl1wpNWMoAT prTA9egElaL1TseKA9UUZp f3m3Go33Z91oZ0DvdOB+PG PhtSG9pZJ3 aL7tSxAoCyZ6EUqsC082Bg JjlSXzVdzin2gma1fkdSu4 TsE0BJStckZefFtsHMZ0o3 TyYa52Q47x IHdpZHRoPSIxNSUiIHZhbG oeqc5apW4sVu3+PGNvbCB3 uWV5wD4bJnAjWgH0OIioD6 49InRvcCIv Zlruc0dte2fuvNw1CtGhOC WmpxSghKbdRQV8l0QlGw09 C0DhsQccc8EoXcq8rl04pE Usm1G8aJS9 U8IkOYAicdeldNXpkRptHP 8zPUMqllncLSPswG9mXJVp T9s6AuAeAjM5UMgsW6Fhhf Z6CCPzlCIs ETwaXIE4K40fs2E4GONfWE RiLQE7tVI6aB4ktGteyjuc bGVmdDsgdmVydGljYWwtYW jaK592BBQs eRfuQANzrV1lGJVjlDZijW mfHZ7uSHQtwvygYmAMB1vx JNOYQJlOFAw3L6BzPpz5TN LnvGfsPX3n cVFyJXxpTw7xbAciaHrhIG 5cSBGakljmWJGyyY0mXIGb gSLttCwjUB7nFMAhyocsy3 22QkHfOGJ8 VMHimLFvB8RpgA0bUdVfYQ IaNPCcZ7DqfBJuHAnpT561 BHbxBrX0NAFcyoGpR9CdFJ FsaWduOiB0 g3M1Ol4zZK4qVf9xTOIyBI 28MZ60mWHbq0J3pPZ3U3Il GZGdmujkdnfucQL2EXQaXG RngW80jTIf XCqmMt8ym6N6u127KNStVB GsbY88Zq5gjCuvMKFsySNH zF4rqpcsz0eyamoqNbAjKL WuNOt4LTs8 HPIxbTdbJbCmKHH8BeN0UG K0gWDbbO8dhVuxqmdpfF8l Oyc+XbeyDYQkyvT6D3HkRr s7XWStkWbi ZO5uuGRmUVatFz9szWnaeP lsNU8zMBKysxvpMKTfuF8v XBJdvZMeiZfcQI7lIYKxga iav054DbUz MJX1ULSiaNYoS3UygZ0lLh DhVBAsRGViK5RmoUYcJPwd D707NFcgRlF2FAAlxjHqK4 FsLWFsaWdu HkK7l9K8Mg7VYL0mmIC0G0 QcRto3RTFpyXqbVC0ycESr ITudMl0nwWrgzAcuMX8nDY BpbjtwYWRk aJ7pCRDgqGRkeEfnFK3uNS Jcscvaw526WnNfABD4MJOx pUCtJ7LqyN3mOlIbKNWoEG HyB9DysXYt OPcrC274BCrbHaH7OZDpfk LjI7EfGVOhmNmkUlJ7c1A1 Rv1McMJcFMNbUL40IZ59GZ 28K3ZzSjer dGFibGU+PHRhYmxlIHdpZH MiJWyqPMIyHfQluDejCZ5r Uc3xIWXcUFWtbKavwPGqXp Xhy5qgRDZd JUlxLN5kxVoaD3XjxSC1BN Sfn6z0Kw47K79gN1KqaWC+ KKXzeVD7dUU2zU9nPwAzZe O0KAqoL908 LbLpxJUtVbkib9jhi9ubrG m2QaPmJKUxvzRrzTzjLNS0 i8AjXz99B59rWKjxHIQjHH IyMCUiIHZh pKhgmp1agK5wKk6+PGNvbC W0aCC3eV5qQsXlMpO4SLvb C651LfPwwDFiDwunA05bH0 JvdXA+PHRy Pza9RTMujUomDE1dyUOoBN cdSl6sCDM3CjDaMvXxCIwi F3KfTRDvdckpktzelSJ6TT MeWOZdxH35 Md0qrEvmIz1yJMJfYRC3OK QmjIVgI9KroI0aScRcGKIj GMBkX3NwgFEsRFukL433CL txFmK6HFMv gcBsD3QeRBBtnGkcSeP3x0 X7Fw1SdMjouMBxBJ3yGnZc REt9G8MjBoa8FYJblOngFZ 0ncGFkZGlu Xm3ldEqtySqvPV2cHEOfki gti608BiMcv2rbXMIxvKGo TYmmRXW5C57gm7D0ZZPzXY WsKQD7lXN4 oF9yaJtkaihciKMwtStoal ZgjYfyJGheQWdmD536JQOo fGsbHsLIAuu1V8SgWvg6MD AufGziID1x gMLjHTbjDz5ajXgcnZnaOM 0kPMQdnzogv111QsQoo1lt MRHgoSCiLScdMUV6T05uy9 T8VKHeERLh NEJ8zUB7pG4ehPrnysuamW VmdDsgdmVydGljYWwtYWxp I298WCVidXqxPe2JUzf3X0 VcFty5FPYh tTkkAX5olIJgGCifTm5dfR frbJvkDW8yEMEhxqwvt761 DvTnr2swPEUcuRNyKQvpRC V4S36bs3D4 MDCjGJPhNQA2jQF2sS1oxI lnbjogbGVmdDsgdmVydGlj MSjgXCihS446EREieElyKp BheWVyOjwv dGQ+QE99ar05Y2SeHdnpPv u7IIImABQ5uXV8uG5aQUCr VEalm4H5uJD3I4IuloRgpa 0mh3acHSNc ZTog (more content not included)... Normal [facility] Consent for Procedure/Surger yon 03-16-2021 Consent for Procedure/Surgery [id number]:127 Normal [facility] IntraOperative Documentson 0 03-16-2021 IntraOperative Documents [id number]:127 Normal [facility] Consent for Treatmenton Consent for Treatment [id number] 0CD:127 Normal [facility] Main OR Intraoperative Recor don 03-12-2021 Main OR Intraoperative Record IntraOp Document Type FTURO Summary Primary Physician: Maximo Ramos Jr., MD Finalized Date/Time: 03/12/21 13:52:16 Pt. Name: DEAN HASKINSRashmi Coker/Sex: 1955 Female Med Rec #: [id number] Physician: Maximo Ramos Jr., MD Financial #: [id number] Pt. Type: O Room/Bed: / Admit/Disch: 03/12/21 [...] Performed Surgeon - Primary Scrub - Primary Lna - Primary Time In 03/12/21 13:44:00 03/12/21 [...] By: Savanna Azevedo RN 03/12/21 13:52 [facility] Main OR Preoperative Recordo n 03-12-2021 Main OR Preoperative Record Holding Area Document Type FTURO Summary Primary Physician: Maximo Ramos Jr., MD Finalized Date/Time: 03/12/21 13:23:03 Pt. Name: DANYELLE HASKINS/Sex: 1955 Female Med Rec #: [id number] Physician: Maximo Ramos Jr., MD Financial #: [id number] Pt. Type: O Room/Bed: / Admit/Disch: 03/12/21 [...] 13:08 Savanna Azevedo RN 03/12/21 13:23 [facility] Operative Reporton Operative Report Patient: DANYELLE HASKINS [...] urine. The Urethra was dilated to: 28 Uzbek w/ sounds. Devices Implanted: None. Removal: Cystoscope is removed, The patient tolerated it well. Postoperative Information Discharge: Patient is discharged home with antibiotic coverage, Follow up arranged. [facility] Comment on above: Result Comment: Elec tronically [...] complications The patient was prepped with Betadine. [employer] [facility] RAD - Ultrasound Reporton RAD - Ultrasound Report [id number] 0CD:127 [facility] Physician Referralon 021 Physician Referral [id number] CD:127 [facility] Ambulatory Clinical Summaryo n 02-24-2021 Ambulatory Clinical Summary {[id number]}CD:[id number] Franc [facility] [...] Document Reviewed: 12/01/2012 ExitCare? Patient Information ?2013 [employer]. [facility] Urology Office/Clinic Noteon 02-24-2021 Urology Office/Clinic Note Chief Complaint New patient recurring UTI sxs This patient is a 65-year-old female with a history of recurrent urinary tract infections. She was recurrent infections. She is been treated several times with oral antibiotics for symptoms of dysuria frequency and urgency continue to recur. She is here today to discuss treatment options to establish urologic care. [facility] Staff New patient Danyelle is a 65 [...] Will order Local anesthesia. ABX sent to [facility] in [place]. Ordered: Urology Procedure Order US Renal 2. Dysuria (R30.0: Dysuria) Moderate. Ordered: Urnls Dip Stick Auto w/o Microscopy POC [id number] Urology Procedure Order US Renal 3. Nocturia [...] procedure, # 2 cap(s), Refills(s) 0, Pharmacy: [facility]/pharmacy #[id number], 172.7, cm, 02/24/21 8:22:00 EDT, Height/Length Dosing, 99.8, kg, 02/24/21 8:21:00 (more content not included)... [facility] Comment on above: Result Comment: Elec tronically [...] complications The patient was prepped with Betadine. [place] CT UPPER EXTREMITY WO CONTRA ST RIGHTon 03-10-2020 CT UPPER EXTREMITY WO CONTRAST RIGHT [facility] Department of Radiology [address] [place] [address] ======== Patient Name: DANYELLE HASKINS [...] [phone] ortho clinic NO MEDICARE/BC CPT CODE 46896 *MLA Comments: right shoulder Exam: CT UPPER [...] reports Electronically signed: Abdelrahman Constantino. Transcribed by: [email or web address], User Resident: ISABELL MARKHAM Electronically Signed by: ABDELRAHMAN CONSTANTINO @ 03/10/2020 04:46 PM I personally read this/these film(s) with this resident [facility] Comment on above: Order Comment: right shoulder SHOULDER RIGHTon 03-10-2020 SHOULDER RIGHT [facility] Department of Radiology [address] [place] [id number] ======== Patient Name: DANYELLE HASKINS : [...] reports Electronically signed: Abdelrahman Constantino. Transcribed by: [email or web address], User Resident: ISABELL MARKHAM Electronically Signed by: ABDELRAHMAN CONSTANTINO @ 03/10/2020 04:48 PM I personally read this/these film(s) with this resident [facility] Comment on above: Order Comment: , Torysolomon [...] with no immediate complications Preparation: with Betadine. [facility] CBC, EDIF, PLATELETon 2018 ABSOLUTE BASOPHIL COUNT 0.[address] Basophils/100 WBC (Bld) 0.6 % 0 - 2 % [address] Differential cell count method Nom (Bld) AUTO DIFF % [address] Eosinophils #/vol (Bld) 0.00 10*3/uL X10 [address] Eosinophils/100 WBC (Bld) 1.0 % 0 - 11 % [address] Erythrocyte distribution width Ratio (RBC) 14.2 % 11.5 - 14.5 % [address] Hematocrit Volume Fraction (Bld) 33.5 % Low 36 - 48 % [address] Hemoglobin mass conc (Bld) 11.5 g/dL Low [address] Interpretation and review of laboratory results Abnormal [address] Lymphocytes #/vol (Bld) 0.70 10*3/uL X10 [address] Lymphocytes/100 WBC (Bld) 16.1 % Low 20 - 55 % [address] MCH Entitic mass (RBC) 34.6 pg 26 - [address] MCHC mass conc (RBC) 34.2 g/dL [place] [address] MCV Entitic volume (RBC) 101.1 fL High [address] Monocytes #/vol (Bld) 0.4 10*3/uL X10 [address] Monocytes/100 WBC (Bld) 9.9 % 0 - 10 % [address] Neutrophils #/vol (Bld) 3.3 10*3/uL [address] Neutrophils/100 WBC (Bld) 72.4 % 37 - 75 % [address] Platelet mean volume Entitic volume (Bld) 7.[address] Platelets #/vol (Bld) 191 10*3/uL [address] RBC #/vol (Bld) 3.31 10*6/uL Low [address] WBC #/vol (Bld) 4.5 10*3/uL [address] CBC, EDIF, PLATELETon 2018 ABSOLUTE BASOPHIL COUNT 0.[address] Basophils/100 WBC (Bld) 0.2 % 0 - 2 % [address] Differential cell count method Nom (Bld) AUTO DIFF % [address] Eosinophils #/vol (Bld) 0.00 10*3/uL X10 [address] Eosinophils/100 WBC (Bld) 0.1 % 0 - 11 % [address] Erythrocyte distribution width Ratio (RBC) 13.8 % 11.5 - 14.5 % [address] Hematocrit Volume Fraction (Bld) 30.2 % Low 36 - 48 % [address] Hemoglobin mass conc (Bld) 10.5 g/dL Low [address] Interpretation and review of laboratory results Abnormal [address] Lymphocytes #/vol (Bld) 0.50 10*3/uL X10 [address] Lymphocytes/100 WBC (Bld) 8.9 % Low 20 - 55 % [address] MCH Entitic mass (RBC) 34.8 pg 26 - [address] MCHC mass conc (RBC) 34.8 g/dL [place] [address] MCV Entitic volume (RBC) 99.[address] Monocytes #/vol (Bld) 0.6 10*3/uL X10 [address] Monocytes/100 WBC (Bld) 10.2 % High 0 - 10 % [address] Neutrophils #/vol (Bld) 4.5 10*3/uL [address] Neutrophils/100 WBC (Bld) 80.6 % High 37 - 75 % [address] Platelet mean volume Entitic volume (Bld) 7.[address] Platelets #/vol (Bld) 181 10*3/uL [address] RBC #/vol (Bld) 3.02 10*6/uL Low [address] WBC #/vol (Bld) 5.6 10*3/uL [address] CBC, EDIF, PLATELETon 2018 ABSOLUTE BASOPHIL COUNT 0.[address] Basophils/100 WBC (Bld) 0.2 % 0 - 2 % [address] Differential cell count method Nom (Bld) AUTO DIFF % [address] Eosinophils #/vol (Bld) 0.00 10*3/uL X10 [address] Eosinophils/100 WBC (Bld) 0.7 % 0 - 11 % [address] Erythrocyte distribution width Ratio (RBC) 13.9 % 11.5 - 14.5 % [address] Hematocrit Volume Fraction (Bld) 33.6 % Low 36 - 48 % [address] Hemoglobin mass conc (Bld) 11.5 g/dL Low [address] Interpretation and review of laboratory results Abnormal [address] Lymphocytes #/vol (Bld) 0.70 10*3/uL X10 [address] Lymphocytes/100 WBC (Bld) 14.4 % Low 20 - 55 % [address] MCH Entitic mass (RBC) 34.7 pg 26 - [address] MCHC mass conc (RBC) 34.1 g/dL [place] [address] MCV Entitic volume (RBC) 101.8 fL High [address] Monocytes #/vol (Bld) 0.5 10*3/uL X10 [address] Monocytes/100 WBC (Bld) 9.8 % 0 - 10 % [address] Neutrophils #/vol (Bld) 3.7 10*3/uL [address] Neutrophils/100 WBC (Bld) 74.9 % 37 - 75 % [address] Platelet mean volume Entitic volume (Bld) 7.[address] Platelets #/vol (Bld) 202 10*3/uL [address] RBC #/vol (Bld) 3.30 10*6/uL [address] WBC #/vol (Bld) 4.9 10*3/uL [address] REPEAT ABO/RH (D) TYPINGon 0 1-15-2019 ABO and Rh group Nom (Bld ) Positive [address] SCREEN: MRSA ONLY, NARES (IS OLATION SCREEN)on 11-21-2018 MRSA isol Org specific cx Ql (Nose) Negative [address] STAPHYOCOCCUS AUREUS BY PCR Negative [address] Comment on above: TESTING PERFORMED BY [...] Panelon 10-1 Calcium 9.2 mg/dL Normal 8.4-10.2 [facility] Comment on above: Performed By: #### C HEM8 ####Unless otherwise noted, all testing performed by [address] [phone]: [id number] Director: Ramon Araujo M.D. Chloride 110 mmol/L High 98-108 [facility] Comment on above: Performed By: #### C HEM8 ####Unless otherwise noted, all testing performed by [address] [phone]: [id number] Director: Ramon Araujo M.D. CO2 27 mmol/L Normal 21-32 [facility] Comment on above: Performed By: #### C HEM8 ####Unless otherwise noted, all testing performed by [address] [phone]: [id number] Director: Ramon Araujo M.D. Creatinine 0.60 mg/dL Normal 0.60-1.20 [facility] Comment on above: Performed By: #### C HEM8 ####Unless otherwise noted, all testing performed by [address] [phone]: [id number] Director: Ramon Araujo M.D. eGFR (black) mL/min/{1.73_m2} Normal [facility] Comment on above: Result Comment: Afri can Serbian GFR Calc Performed By: #### C HEM8 ####Unless otherwise noted, all testing performed by [address] [phone]: [id number] Director: Ramon Araujo M.D. eGFR (non-black) mL/min/{1.73_m2} Normal [facility] Comment on above: Result Comment: Non- GFR [...] ####Unless otherwise noted, all testing performed by [address], [place] [phone]: [id number] Director: Ramon Araujo M.D. Glucose mass conc 87 mg/dL Normal 70-99 [facility] Comment on above: Result Comment: This test result might be falsely depressed or falsely elevated onsamples drawn from patients taking Sulfasalazine and Sulfapyridine.Venipuncture should occur prior to taking either of these drugs. Performed By: #### C HEM8 ####Unless otherwise noted, all testing performed by [address] [phone]: [id number] Director: Ramon Araujo M.D. Potassium molar conc 4.2 mmol/L Normal 3.5-5.1 [facility] Comment on above: Performed By: #### C HEM8 ####Unless otherwise noted, all testing performed by [address] [phone]: [id number] Director: Ramon Araujo M.D. Sodium 143 mmol/L Normal 135-145 [facility] Comment on above: Performed By: #### C HEM8 ####Unless otherwise noted, all testing performed by [address] [phone]: [id number] Director: Ramon Araujo M.D. Urea nitrogen 10 mg/dL Normal 8-25 [facility] Comment on above: Performed By: #### C HEM8 ####Unless otherwise noted, all testing performed by [address] [phone]: [id number] Director: Ramon Araujo M.D. [facility] Rep[facility] ton 08-15-2017 [facility] Report Type: OrthopedicDictated by: To be signed by: Transcribed by: Transcribed D/ Dictation D/ Report: DATE OF VISIT: 08/11/2017 HISTORY OF PRESENT ILLNESS: Ms. Haskins underwent left patellar tendon repair and inferior partial patellectomy on 07/18/2017 three weeks ago. She is doing well. She is at a senior care with a knee immobilizer locked out in extension and has been non-weightbearing. She is doing very well. She is happy with her recovery to date. She is having minimal pain, using only Tylenol at this time. She is planning to be discharged from the senior care next week when she has a wheelchair [...] her that she may shower at the senior care only using a shower chair with a shower stool. The knee should be in extension before the brace comes off and should remain in extension until the brace goes back on. She should not stand while not wearing the brace. This was all relayed via instructions to the senior care. We will see her back in three weeks. Dictated by KAREEM Croft, for Dr. Mcclure. 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 She is an established patient of [facility]. She was last seen on 04/27/2017, diagnosed [...] patient is followed by Dr. Monaco, a alum operator and by Dr. Lili Parks, a neurologist. [...] advance of surgery and 2 weeks postoperatively. 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 [facility] Repor ton 07-26-2017 [...] use. The patient is seen by a alum operator, has a pain specialist, and a neurologist. [...] 2) Orders reviewed and continue same. Normal [facility] C. difficile Assayon 017 C. difficile interpretation Negative Normal [facility] Comment on above: Result Comment: Rapi d test procedural control acceptable. Performed By: #### z CDIF ####Unless otherwise noted, all testing performed by [address] [phone]: [id number] Director: Ramon Araujo M.D. Specimen Acceptable (CDIF)on 07-24-2017 Specimen Acceptable (CDIF) YES Normal [facility] Comment on above: Result Comment: Pily. shelbi ifficile testing result(s) to follow. Performed By: #### C DSPEC ####Unless otherwise noted, all testing performed by [address] [phone]: [id number] Director: Ramon Araujo M.D. CBC with Diffon 07-23-2017 Basophils Auto #/vol (Bld) 0.0 K/mcL Normal 0-0.2 [facility] Comment on above: Performed By: #### C BCDIF, CMET, TSH ####Unless otherwise noted, all testing performed by [address] [phone]: [id number] Director: Ramon Araujo M.D. Basophils/100 WBC Auto (Bld) 0.5 % Normal [facility] Comment on above: Performed By: #### C BCDIF, CMET, TSH ####Unless otherwise noted, all testing performed by [address] [phone]: [id number] Director: Ramon Araujo M.D. Eosinophils 0.1 K/mcL Normal 0-0.5 [facility] Comment on above: Performed By: #### C BCDIF, CMET, TSH ####Unless otherwise noted, all testing performed by [place] [phone]: [id number] Director: Ramon Araujo M.D. Eosinophils/100 leukocytes 1.7 % Normal [facility] Comment on above: Performed By: #### C BCDIF, CMET, TSH ####Unless otherwise noted, all testing performed by [place] [phone]: [id number] Director: Ramon Araujo M.D. Erythrocyte distribution width Auto Ratio (RBC) 14.6 % High 10.0-14.4 [facility] Comment on above: Performed By: #### C BCDIF, CMET, TSH ####Unless otherwise noted, all testing performed by [place] [phone]: [id number] Director: Ramon Araujo M.D. Erythrocytes (RBC) 3.32 M/mcL Low 3.7-5.0 [facility] Comment on above: Performed By: #### C BCDIF, CMET, TSH ####Unless otherwise noted, all testing performed by [place] [phone]: [id number] Director: Ramon Araujo M.D. Hematocrit (HCT) 33.9 % Low 34.4-44.8 [facility] Comment on above: Performed By: #### C BCDIF, CMET, TSH ####Unless otherwise noted, all testing performed by [address] [phone]: [id number] Director: Ramon Araujo M.D. Hemoglobin mass conc (Bld) 11.8 g/dL Normal 11.6-15.4 [facility] Comment on above: Performed By: #### C BCDIF, CMET, TSH ####Unless otherwise noted, all testing performed by [address] [phone]: [id number] Director: Ramon Araujo M.D. Lymphocytes 0.8 K/mcL Low 1.0-3.7 [facility] Comment on above: Performed By: #### C BCDIF, CMET, TSH ####Unless otherwise noted, all testing performed by [address] [phone]: [id number] Director: Ramon Araujo M.D. Lymphocytes/100 leukocytes 18.3 % Normal [facility] Comment on above: Performed By: #### C BCDIF, CMET, TSH ####Unless otherwise noted, all testing performed by [address] [phone]: [id number] Director: Ramon Araujo M.D. MCH 35.6 pg High 27.9-33.9 [facility] Comment on above: Performed By: #### C BCDIF, CMET, TSH ####Unless otherwise noted, all testing performed by [address] [phone]: [id number] Director: Ramon Araujo M.D. [facility] mass conc (RBC) 34.8 g/dL Normal 33.1-35.1 [facility] Comment on above: Performed By: #### C BCDIF, CMET, TSH ####Unless otherwise noted, all testing performed by [phone]: [id number] Director: Ramon Araujo M.D. MCV 102.1 fL High 82.6-98.9 [facility] Comment on above: Performed By: #### C BCDIF, CMET, TSH ####Unless otherwise noted, all testing performed by [place] [phone]: [id number] Director: Ramon Araujo M.D. Monocytes 0.6 K/mcL Normal 0.1-0.6 [facility] Comment on above: Performed By: #### C BCDIF, CMET, TSH ####Unless otherwise noted, all testing performed by [place] [phone]: [id number] Director: Ramon Araujo M.D. Monocytes/100 leukocytes 13.1 % Normal [facility] Comment on above: Performed By: #### C BCDIF, CMET, TSH ####Unless otherwise noted, all testing performed by [place] [phone]: [id number] Director: Ramon Araujo M.D. Neutrophils 3.1 K/mcL Normal 1.2-6.9 [facility] Comment on above: Performed By: #### C BCDIF, CMET, TSH ####Unless otherwise noted, all testing performed by [address] [phone]: [id number] Director: Ramon Araujo M.D. Platelet mean volume (PMV) 7.4 fL Normal 7.0-10.6 [facility] Comment on above: Performed By: #### C BCDIF, CMET, TSH ####Unless otherwise noted, all testing performed by [address] [phone]: [id number] Director: Ramon Araujo M.D. Platelets 229 K/mcL Normal 162-402 [facility] Comment on above: Performed By: #### C BCDIF, CMET, TSH ####Unless otherwise noted, all testing performed by [address] [phone]: [id number] Director: Ramon Araujo M.D. Segmented Neut % 66.4 % Normal [facility] Comment on above: Performed By: #### C BCDIF, CMET, TSH ####Unless otherwise noted, all testing performed by [address] [phone]: [id number] Director: Ramon Araujo M.D. WBC (Leukocytes) 4.6 K/mcL Normal 3.4-10.6 [facility] Comment on above: Performed By: #### C BCDIF, CMET, TSH ####Unless otherwise noted, all testing performed by [place] [phone]: [id number] Director: Ramon Araujo M.D. Comprehensive Metabolic Pane [facility] 07-23-2017 Alanine aminotransferase (ALT) 27 U/L Normal 14-65 [facility] Comment on above: Result Comment: This test result might be falsely depressed or falsely elevated onsamples drawn from patients taking Sulfasalazine and Sulfapyridine.Venipuncture should occur prior to taking either of these drugs. Performed By: #### C BCDIF, CMET, TSH ####Unless otherwise noted, all testing performed by [address] [phone]: [id number] Director: Ramon Araujo M.D. Albumin 2.8 g/dL Low 3.2-5.2 [facility] Comment on above: Performed By: #### C BCDIF, CMET, TSH ####Unless otherwise noted, all testing performed by [address] [phone]: [id number] Director: Ramon Araujo M.D. Alkaline phosphatase (ALP) 53 U/L Normal 40-150 [facility] Comment on above: Performed By: #### C BCDIF, CMET, TSH ####Unless otherwise noted, all testing performed by [address] [phone]: [id number] Director: Ramon Araujo M.D. Aspartate aminotransferase (AST) 32 U/L Normal 0-45 [facility] Comment on above: Result Comment: This test result might be falsely depressed or falsely elevated onsamples drawn from patients taking Sulfasalazine and Sulfapyridine.Venipuncture should occur prior to taking either of these drugs. Performed By: #### C BCDIF, CMET, TSH ####Unless otherwise noted, all testing performed by [address] [phone]: [id number] Director: Ramon Araujo M.D. Bilirubin (total) 0.9 mg/dL Normal 0.3-1.2 [facility] Comment on above: Performed By: #### C BCDIF, CMET, TSH ####Unless otherwise noted, all testing performed by [address] [phone]: [id number] Director: Ramon Araujo M.D. Calcium 8.7 mg/dL Normal 8.4-10.2 [facility] Comment on above: Performed By: #### C BCDIF, CMET, TSH ####Unless otherwise noted, all testing performed by [address] [phone]: [id number] Director: Ramon Araujo M.D. Chloride 108 mmol/L Normal 98-108 [facility] Comment on above: Performed By: #### C BCDIF, CMET, TSH ####Unless otherwise noted, all testing performed by [address] [phone]: [id number] Director: Ramon Araujo M.D. CO2 26 mmol/L Normal 21-32 [facility] Comment on above: Performed By: #### C BCDIF, CMET, TSH ####Unless otherwise noted, all testing performed by [address] [phone]: [id number] Director: Ramon Araujo M.D. Creatinine 0.57 mg/dL Low 0.60-1.20 [facility] Comment on above: Performed By: #### C MARTHA DOUGHERTY, TSH ####Unless otherwise noted, all testing performed by [address] [phone]: [id number] Director: Ramon Araujo M.D. eGFR (black) mL/min/{1.73_m2} Normal [facility] Comment on above: Result Comment: Afri can Serbian GFR Calc Performed By: #### C MARTHA DOUGHERTY, TSH ####Unless otherwise noted, all testing performed by [address] [phone]: [id number] Director: Ramon Araujo M.D. eGFR (non-black) mL/min/{1.73_m2} Normal [facility] Comment on above: Result Comment: Non- GFR [...] otherwise noted, all testing performed by [address] [phone]: [id number] Director: Ramon Araujo M.D. Glucose mass conc 86 mg/dL Normal 70-99 [facility] Comment on above: Result Comment: This test result might be falsely depressed or falsely elevated onsamples drawn from patients taking Sulfasalazine and Sulfapyridine.Venipuncture should occur prior to taking either of these drugs. Performed By: #### C FREDF, CMET, TSH ####Unless otherwise noted, all testing performed by [address] [phone]: [id number] Director: Ramon Araujo M.D. Potassium molar conc 3.7 mmol/L Normal 3.5-5.1 [facility] Comment on above: Performed By: #### C BCDIF, CMET, TSH ####Unless otherwise noted, all testing performed by [place] [phone]: [id number] Director: Ramon Araujo M.D. Protein 6.1 g/dL Normal 6.0-8.0 [facility] Comment on above: Performed By: #### C BCDIF, CMET, TSH ####Unless otherwise noted, all testing performed by [place] [phone]: [id number] Director: Ramon Araujo M.D. Sodium 141 mmol/L Normal 135-145 [facility] Comment on above: Performed By: #### C BCDIF, CMET, TSH ####Unless otherwise noted, all testing performed by [address] [phone]: [id number] Director: Ramon Araujo M.D. Urea nitrogen 11 mg/dL Normal 8-25 [facility] Comment on above: Performed By: #### C BCDIF, CMET, TSH ####Unless otherwise noted, all testing performed by [place] [phone]: [id number] Director: Ramon Araujo M.D. TSHon 07-23-2017 Thyroid stimulating hormone (TSH) 1.67 uIU/mL Normal 0.320-5.000 [facility] Comment on above: Performed By: #### C BCDIF, CMET, TSH ####Unless otherwise noted, all testing performed by [place] [address] [address] [place], [place] [phone]: [id number] Director: Ramon Araujo M.D. DISCH SUMMon 07-21-2017 [facility] NOTES Normal [facility] NURSING NOTEon 07-21-2017 [facility] NOTES Normal [facility] NOT[facility] Normal [facility] NOT[facility] Normal [facility] NOT[facility] Normal [facility] NOT[facility] Normal [facility] NOT[facility] Normal [facility] Normal [facility] Normal [facility] NOTES Normal [facility] NOT[facility] Normal [facility] NOTES Normal [facility] NOT[facility] Normal [facility] PROGRESSon 07-21-2017 [facility] NOTES Normal [facility] NOT[facility] Normal [facility] NOT[facility] Normal [facility] NOT[facility] Normal [facility] NURSING NOTEon 07-20-2017 [facility] NOTES Normal [facility] NOT[facility] Normal [facility] NOT[facility] Normal [facility] NOT[facility] Normal [facility] PLAN OF CAREon 07-20-2017 [facility] NOTES Normal [facility] NOT[facility] Normal [facility] NOTES Normal [facility] NOT[facility] Normal [facility] PROGRESSon 07-20-2017 [facility] NOTES Normal [facility] NOT[facility] Normal [facility] NOT[facility] Normal [facility] NOT[facility] Normal [facility] NOT[facility] Normal [facility] Normal [facility] Normal [facility] Normal [facility] Normal [facility] NOT[facility] Normal [facility] Anes Post-opon 2017 [facility] NOTES Normal [facility] CONSULTon 2017 [facility] NOTES Normal [facility] Certificatioon 2017 [facility] NOTES Normal [facility] NURSING NOTEon 2017 [facility] NOTES Normal [facility] NOT[facility] Normal [facility] NOT[facility] Normal [facility] NOTES Normal [facility] Normal [facility] Normal [facility] NOT[facility] Normal [facility] NOT[facility] Normal [facility] NOT[facility] Normal [facility] NOT[facility] Normal [facility] NOTES Normal [facility] NOT[facility] Normal [facility] PLAN OF CAREon 2017 [facility] NOTES Normal [facility] NOT[facility] Normal [facility] NOT[facility] Normal [facility] NOT[facility] Normal [facility] PROGRESSon 2017 [facility] NOTES Normal [facility] NOT[facility] NOT[facility] NOT[facility] NOTES Normal [facility] NOTES Normal [facility] NOT[facility] Normal [facility] NOT[facility] Normal [facility] BRIEF OP NOTon 07-18-2017 [facility] NOTES Normal [facility] OP NOTEon 07-18-2017 [facility] NOTES Normal [facility] OR NURSINGon 07-18-2017 [facility] CAC NOTES Normal [facility] XR KNEE LEFT 2 VIEWSon 07-18 [...] changes as above in satisfactory alignment. Normal [facility] PROGRESSon 07-01-2017 [facility] NOTES Normal [facility] Vital Signs Date Time Vital Sign Value Performing Clinician Facility 07-23-2025 09:46-0400 Diastolic blood pressure 108 mm[Hg] Yulisa Batres MD Work Phone: [facility] 07-23-2025 09:46-0400 Heart rate 67 /min Yulisa Batres MD Work Phone: [facility] 07-23-2025 09:46-0400 SaO2% (BldA) [Mass fraction] 96 % Yulisa Batres MD Work Phone: [facility] 07-23-2025 09:46-0400 Systolic blood pressure 202 mm[Hg] Yulisa Batres MD Work Phone: [facility] 07-17-2025 10:44-0400 Body weight 99.96 kg Yulisa Batres MD Work Phone: [facility] 07-17-2025 10:44-0400 Diastolic blood pressure 102 mm[Hg] Yulisa Batres MD Work Phone: [facility] 07-17-2025 10:44-0400 Heart rate 69 /min Yulisa Batres MD Work Phone: [facility] 07-17-2025 10:44-0400 SaO2% (BldA) [Mass fraction] 95 % Yulisa Batres MD Work Phone: [facility] 07-17-2025 10:44-0400 Systolic blood pressure 188 mm[Hg] Yulisa Batres MD Work Phone: [facility] 06-20-2025 08:26-0400 Body height 172.7 cm Elie Harper DPM Work Phone: [facility] 06-20-2025 08:26-0400 Body mass index (BMI) [Ratio] 33.75 kg/m2 Elie Harper DPM Work Phone: [facility] 06-20-2025 08:26-0400 Body weight 100.7 kg Elie Harper DPM Work Phone: [facility] 06-20-2025 08:26-0400 Respiratory rate 16 /min Elie Harper DPM Work Phone: [facility] 06-13-2025 10:01-0400 Diastolic blood pressure 98 mm[Hg] Yulisa Batres MD Work Phone: [facility] 06-13-2025 10:01-0400 Heart rate 72 /min Yulisa Batres MD Work Phone: [facility] 06-13-2025 10:01-0400 SaO2% (BldA) [Mass fraction] 97 % Yulisa Batres MD Work Phone: [facility] 06-13-2025 10:01-0400 Systolic blood pressure 178 mm[Hg] Yulisa Batres MD Work Phone: [facility] 05-01-2025 09:43-0400 Body height 172.72 cm Yulisa Batres MD Work Phone: [facility] 05-01-2025 09:43-0400 Body mass index (BMI) [Ratio] 33.7 kg/m2 Yulisa Batres MD Work Phone: [facility] 05-01-2025 09:43-0400 Body weight 100.69 kg Yulisa Batres MD Work Phone: [facility] 05-01-2025 09:43-0400 Diastolic blood pressure 102 mm[Hg] Yulisa Batres MD Work Phone: [facility] 05-01-2025 09:43-0400 Heart rate 66 /min Yulisa Batres MD Work Phone: [facility] 05-01-2025 09:43-0400 Respiratory rate 16 /min Yulisa Batres MD Work Phone: [facility] 05-01-2025 09:43-0400 SaO2% (BldA) [Mass fraction] 97 % Yulisa Batres MD Work Phone: [facility] 05-01-2025 09:43-0400 Systolic blood pressure 200 mm[Hg] Yulisa Batres MD Work Phone: [facility] 04-04-2025 11:59-0400 Body height 172.7 cm Elie Harper DPM Work Phone: [facility] 04-04-2025 11:59-0400 Body mass index (BMI) [Ratio] 33.75 kg/m2 Elie Harper DPM Work Phone: [facility] 04-04-2025 11:59-0400 Body weight 100.7 kg Elie Harper DPM Work Phone: [facility] 04-04-2025 11:59-0400 Respiratory rate 18 /min Elie Harper DPM Work Phone: [facility] 03-07-2025 08:32-0400 Body height 172.7 cm Elie Harper DPM Work Phone: [facility] 03-07-2025 08:32-0400 Body mass index (BMI) [Ratio] 33.75 kg/m2 Elie Harper DPM Work Phone: [facility] 03-07-2025 08:32-0400 Body weight 100.7 kg Elie Harper DPM Work Phone: [facility] 03-07-2025 08:32-0400 Respiratory rate 16 /min Elie Harper DPM Work Phone: [facility] 02-28-2025 09:15-0400 Diastolic blood pressure 98 mm[Hg] Magalie Mandeep DO Work Phone: [facility] 02-28-2025 09:15-0400 Heart rate 71 /min Magalie Mandeep DO Work Phone: [facility] 02-28-2025 09:15-0400 SaO2% (BldA) [Mass fraction] 96 % Magalie Mandeep DO Work Phone: [facility] 02-28-2025 09:15-0400 Systolic blood pressure 164 mm[Hg] Magalie Kaufman DO Work Phone: [facility] 02-20-2025 14:03-0400 Body height 172.7 cm Elie Brown DPM Work Phone: [facility] 02-20-2025 14:03-0400 Body mass index (BMI) [Ratio] 33.75 kg/m2 Elie Brown DPM Work Phone: [facility] 02-20-2025 14:03-0400 Body weight 100.7 kg Elie Brown DPM Work Phone: [facility] 02-20-2025 14:03-0400 Respiratory rate 18 /min Elie Brown DPM Work Phone: [facility] 02-13-2025 15:43-0400 Body height 172.7 cm Elie Brown DPM Work Phone: [facility] 02-13-2025 15:43-0400 Body mass index (BMI) [Ratio] 33.75 kg/m2 Elie Brown DPM Work Phone: [facility] 02-13-2025 15:43-0400 Body weight 100.7 kg Elie Brown DPM Work Phone: [facility] 02-13-2025 15:43-0400 Respiratory rate 18 /min Elie Brown DPM Work Phone: [facility] 02-06-2025 14:21-0400 Body height 172.7 cm Elie Brown DPM Work Phone: [facility] 02-06-2025 14:21-0400 Body mass index (BMI) [Ratio] 33.75 kg/m2 Elie Brown DPM Work Phone: [facility] 02-06-2025 14:21-0400 Body weight 100.7 kg Elie Brown DPM Work Phone: [facility] 02-06-2025 14:21-0400 Respiratory rate 18 /min Elie Brown DPM Work Phone: [facility] 01-17-2025 10:12-0400 Body height 172.7 cm Elie Brown DPM Work Phone: [facility] 01-17-2025 10:12-0400 Body mass index (BMI) [Ratio] 33.75 kg/m2 Elie Brown DPM Work Phone: [facility] 01-17-2025 10:12-0400 Body weight 100.7 kg Elie Brown DPM Work Phone: [facility] 01-17-2025 10:12-0400 Respiratory rate 18 /min Elie Brown DPM Work Phone: [facility] 01-10-2025 10:22-0500 Body height 172.7 cm Elie Brown DPM Work Phone: [facility] 01-10-2025 10:22-0500 Body mass index (BMI) [Ratio] 33.75 kg/m2 Elie Brown DPM Work Phone: [facility] 01-10-2025 10:22-0500 Body weight 100.7 kg Elie Brown DPM Work Phone: [facility] 01-10-2025 10:22-0500 Respiratory rate 18 /min Elie Brown DPM Work Phone: [facility] 01-02-2025 15:04-0500 Body height 172.7 cm Elie Brown DPM Work Phone: [facility] 01-02-2025 15:04-0500 Body mass index (BMI) [Ratio] 33.75 kg/m2 Elie Brown DPM Work Phone: [facility] 01-02-2025 15:04-0500 Body weight 100.7 kg Elie Brown DPM Work Phone: [facility] 01-02-2025 15:04-0500 Respiratory rate 18 /min Elie Brown DPM Work Phone: [facility] 12-12-2024 11:30-0500 Body mass index (BMI) [Ratio] 33.75 kg/m2 Gaby Christianson RACECOURSE BARRIER ATTENDANT Work Phone: [facility] 12-12-2024 11:30-0500 Body weight 100.7 kg Gaby Christianson R[employer]ECOURSE BARRIER ATTENDANT Work Phone: [facility] 12-12-2024 11:30-0500 Diastolic blood pressure 84 mm[Hg] Gaby Christianson R[employer]ECOURSE BARRIER ATTENDANT Work Phone: [facility] 12-12-2024 11:30-0500 Heart rate 85 /min Gaby Christianson R[employer]ECOURSE BARRIER ATTENDANT Work Phone: [facility] 12-12-2024 11:30-0500 SaO2% (BldA) [Mass fraction] 97 % Gaby Christianson R[employer]ECOURSE BARRIER ATTENDANT Work Phone: [facility] 12-12-2024 11:30-0500 Systolic blood pressure 140 mm[Hg] Gaby Christianson RACECOURSE BARRIER ATTENDANT Work Phone: [facility] 11-28-2024 11:19-0500 Body height 170.2 cm New Mcclure MD Work Phone: [facility] 11-28-2024 11:19-0500 Body mass index (BMI) [Ratio] 36.96 kg/m2 New Mcclure MD Work Phone: [facility] 11-28-2024 11:19-0500 Body weight 107.05 kg New Mcclure MD Work Phone: [facility] 11-15-2024 14:19-0500 Body height 172.7 cm Elie Harper DPM Work Phone: [facility] 11-15-2024 14:19-0500 Body mass index (BMI) [Ratio] 34.67 kg/m2 Elie Harper DPM Work Phone: [facility] 11-15-2024 14:19-0500 Body weight 103.42 kg Elie Harper DPM Work Phone: [facility] 11-15-2024 14:19-0500 Respiratory rate 18 /min Elie Harper DPM Work Phone: [facility] 10-25-2024 11:39-0500 Diastolic blood pressure 88 mm[Hg] Magalie Mandeep DO Work Phone: [facility] 10-25-2024 11:39-0500 Heart rate 76 /min Magalie Mandeep DO Work Phone: [facility] 10-25-2024 11:39-0500 SaO2% (BldA) [Mass fraction] 99 % Magalie Mandeep DO Work Phone: [facility] 10-25-2024 11:39-0500 Systolic blood pressure 136 mm[Hg] Magalie Mandeep DO Work Phone: [facility] 10-15-2024 14:08-0500 Body mass index (BMI) [Ratio] 34.67 kg/m2 Christopher Moni DO Work Phone: [facility] 10-15-2024 14:08-0500 Body weight 103.42 kg Christopher Moni DO Work Phone: [facility] 10-15-2024 14:08-0500 Diastolic blood pressure 82 mm[Hg] Christopher Moni DO Work Phone: [facility] 10-15-2024 14:08-0500 Heart rate 76 /min Christopher Moni DO Work Phone: [facility] 10-15-2024 14:08-0500 SaO2% (BldA) [Mass fraction] 93 % Christopher Moni DO Work Phone: [facility] 10-15-2024 14:08-0500 Systolic blood pressure 148 mm[Hg] Christopher Moni DO Work Phone: [facility] 09-06-2024 14:36-0400 Body height 172.7 cm Elie Harper DPM Work Phone: [facility] 09-06-2024 14:36-0400 Body mass index (BMI) [Ratio] 34.21 kg/m2 Elie Harper DPM Work Phone: [facility] 09-06-2024 14:36-0400 Body weight 102.06 kg Elie Harper DPM Work Phone: [facility] 09-06-2024 14:36-0400 Diastolic blood pressure 80 mm[Hg] Elie Brown DPM Work Phone: [facility] 09-06-2024 14:36-0400 Heart rate 82 /min Elie Harper DPM Work Phone: [facility] 09-06-2024 14:36-0400 Systolic blood pressure 129 mm[Hg] Elie Brown DPM Work Phone: [facility] 08-16-2024 11:30-0400 Body height 172.7 cm Elie Harper DPM Work Phone: [facility] 08-16-2024 11:30-0400 Body mass index (BMI) [Ratio] 34.21 kg/m2 Elie Brown DPM Work Phone: [facility] 08-16-2024 11:30-0400 Body weight 102.06 kg Elie Harper DPM Work Phone: [facility] 08-16-2024 11:30-0400 Respiratory rate 17 /min Elie Harper DPM Work Phone: [facility] 08-02-2024 10:36-0400 Body height 172.7 cm Elie Harper DPM Work Phone: [facility] 08-02-2024 10:36-0400 Body mass index (BMI) [Ratio] 34.21 kg/m2 Elie Brown DPM Work Phone: [facility] 08-02-2024 10:36-0400 Body weight 102.06 kg Elie Brown DPM Work Phone: [facility] 08-02-2024 10:36-0400 Diastolic blood pressure 80 mm[Hg] Elie Harper DPM Work Phone: [facility] 08-02-2024 10:36-0400 Heart rate 74 /min Elie Harper DPM Work Phone: [facility] 08-02-2024 10:36-0400 Respiratory rate 18 /min Elie Meredith DPM Work Phone: [facility] 08-02-2024 10:36-0400 Systolic blood pressure 130 mm[Hg] Elie Harper DPM Work Phone: [facility] 07-26-2024 12:37-0400 Diastolic blood pressure 90 mm[Hg] Magalie Mandeep DO Work Phone: [facility] 07-26-2024 12:37-0400 Heart rate 64 /min Magalie Mandeep DO Work Phone: [facility] 07-26-2024 12:37-0400 SaO2% (BldA) [Mass fraction] 94 % Magalie Mandeep DO Work Phone: [facility] 07-26-2024 12:37-0400 Systolic blood pressure 162 mm[Hg] Magalie Mandeep DO Work Phone: [facility] 07-18-2024 15:22-0400 Body height 172.7 cm Elie Harper DPM Work Phone: [facility] 07-18-2024 15:22-0400 Body mass index (BMI) [Ratio] 34.21 kg/m2 Eliemitzi Harper DPM Work Phone: [facility] 07-18-2024 15:22-0400 Body weight 102.06 kg Elie Brown DPM Work Phone: [facility] 07-18-2024 15:22-0400 Diastolic blood pressure 83 mm[Hg] Elie Harper DPM Work Phone: [facility] 07-18-2024 15:22-0400 Heart rate 75 /min Elie Harper DPM Work Phone: [facility] 07-18-2024 15:22-0400 Respiratory rate 18 /min Elie Harper DPM Work Phone: [facility] 07-18-2024 15:22-0400 Systolic blood pressure 132 mm[Hg] Elie Harper DPM Work Phone: [facility] 07-16-2024 13:00-0400 Body height 172.7 cm Gaby Christianson [employer]ER ATTENDANT Work Phone: [facility] 07-16-2024 13:00-0400 Body mass index (BMI) [Ratio] 34.21 kg/m2 Gaby Christianson R[employer]ECOURSE BARRIER ATTENDANT Work Phone: [facility] 07-16-2024 13:00-0400 Body weight 102.06 kg Gaby Christianson RACECOURSE BARRIER ATTENDANT Work Phone: [facility] 07-16-2024 13:00-0400 Diastolic blood pressure 92 mm[Hg] Gaby Fischeroll RACECOURSE BARRIER ATTENDANT Work Phone: [facility] 07-16-2024 13:00-0400 Systolic blood pressure 142 mm[Hg] Gaby Fischeroll [employer]ECOURSE BARRIER ATTENDANT Work Phone: [facility] 06-28-2024 14:04-0400 Body height 172.7 cm Elie Harper DPM Work Phone: [facility] 06-28-2024 14:04-0400 Body mass index (BMI) [Ratio] 33.6 kg/m2 Elie Harper DPM Work Phone: [facility] 06-28-2024 14:04-0400 Body weight 100.25 kg Elie Harper DPM Work Phone: [facility] 06-28-2024 14:04-0400 Diastolic blood pressure 79 mm[Hg] Elie Harper DPM Work Phone: [facility] 06-28-2024 14:04-0400 Heart rate 80 /min Elie Harper DPM Work Phone: [facility] 06-28-2024 14:04-0400 Systolic blood pressure 129 mm[Hg] Elie Harper DPM Work Phone: [facility] 05-31-2024 09:44-0400 Body height 170.2 cm New Mcclure MD Work Phone: [facility] 05-31-2024 09:44-0400 Body mass index (BMI) [Ratio] 37.09 kg/m2 New Mcclure MD Work Phone: [facility] 05-31-2024 09:44-0400 Body temperature 97.5 [degF] New Mcclure MD Work Phone: [facility] 05-31-2024 09:44-0400 Body weight 107.41 kg New Mcclure MD Work Phone: [facility] 03-22-2024 15:49-0400 Body height 170.2 cm New Mcclure MD Work Phone: [facility] 03-22-2024 15:49-0400 Body mass index (BMI) [Ratio] 35.4 kg/m2 New Mcclure MD Work Phone: [facility] 03-22-2024 15:49-0400 Body weight 102.51 kg New Mcclure MD Work Phone: [facility] 02-23-2024 11:02-0400 Body height 170.2 cm Rajinder Green MECHANICAL FACILITIES TECHNICIAN-FLOW MACHINE OPERATOR Work Phone: [facility] 02-23-2024 11:02-0400 Body mass index (BMI) [Ratio] 35.4 kg/m2 Rajinder Green MECHANICAL FACILITIES TECHNICIAN-FLOW MACHINE OPERATOR Work Phone: [facility] 02-23-2024 11:02-0400 Body weight 102.51 kg Rajinder Green MECHANICAL FACILITIES TECHNICIAN-FLOW MACHINE OPERATOR Work Phone: [facility] 11-03-2023 10:09-0500 Diastolic blood pressure 89 mm[Hg] Pepe Chaka [employer] [facility] 11-03-2023 10:09-0500 Systolic blood pressure 191 mm[Hg] Pepe Chaka [employer] [facility] 11-03-2023 09:53-0500 Body height 170.2 cm Pepe Chaka [employer] [facility] 11-03-2023 09:53-0500 Body mass index (BMI) [Ratio] 34.46 kg/m2 Pepe Chaka [employer] [facility] 11-03-2023 09:53-0500 Body weight 99.79 kg Pepe Chaka [employer] [facility] 11-03-2023 09:53-0500 Heart rate 67 /min Pepe Chaka [employer] [facility] Comment on above: regular 11-03-2023 09:53-0500 Respiratory rate 20 /min Pepe Chaka [employer] [facility] Comment on above: lungs cta 11-03-2023 09:53-0500 SaO2% (BldA) [Mass fraction] 96 % Pepe Chaka [employer] [facility] 09-01-2023 12:59-0400 Body height 170.2 cm New Mcclure MD Work Phone: [facility] 09-01-2023 12:59-0400 Body mass index (BMI) [Ratio] 35.4 kg/m2 New Mcclure MD Work Phone: [facility] 09-01-2023 12:59-0400 Body temperature 98.2 [degF] New Mcclure MD Work Phone: [facility] 09-01-2023 12:59-0400 Body weight 102.51 kg New Mcclure MD Work Phone: [facility] 05-19-2023 14:41-0400 Body height 172.7 cm Rajinder Green APRN-FLOW MACHINE OPERATOR Work Phone: [facility] 05-19-2023 14:41-0400 Body mass index (BMI) [Ratio] 34.36 kg/m2 Rajinder Green APRN-FLOW MACHINE OPERATOR Work Phone: [facility] 05-19-2023 14:41-0400 Body temperature 97.59 [degF] Rajinder Green APRN-FLOW MACHINE OPERATOR Work Phone: [facility] 05-19-2023 14:41-0400 Body weight 102.51 kg Rajinder Green MECHANICAL FACILITIES TECHNICIAN-FLOW MACHINE OPERATOR Work Phone: [employer] 08-31-2021 15:30-0400 Body height 173.99 cm Stephen Alicea Other [employer] Other 08-31-2021 15:30-0400 Body mass index (BMI) [Ratio] 30.26 kg/m2 Stephen Deanne Other [employer] Other 08-31-2021 15:30-0400 Body weight 91.63 kg Stephen Elsdorian Other [employer] Other 08-31-2021 15:30-0400 Diastolic blood pressure 87 mm[Hg] Stephen Elsdorian Other [employer] Other 08-31-2021 15:30-0400 Systolic blood pressure 145 mm[Hg] Stephen Elsdorian Other [employer] Other 03-11-2021 13:50-0400 Body height 172.7 cm New Mcclure MD Work Phone: [employer] 03-11-2021 13:50-0400 Body mass index (BMI) [Ratio] 33.45 kg/m2 New Mcclure MD Work Phone: [facility] 03-11-2021 13:50-0400 Body temperature 97 [degF] New Mcclure MD Work Phone: [employer] 03-11-2021 13:50-0400 Body weight 99.79 kg New Mcclure MD Work Phone: [facility] 11-19-2020 14:21-0500 BMI (Body Mass Index) 34.1 kg/m2 [facility] 11-19-2020 14:21-0500 Body Temperature 97.11 [degF] [facility] 11-19-2020 14:21-0500 Body weight 100.25 kg [facility] 11-19-2020 14:21-0500 Height 171.5 cm [facility] 11-21-2019 13:29-0500 BMI (Body Mass Index) 33.42 kg/m2 [facility] 11-21-2019 13:29-0500 Body Temperature 97 [degF] [facility] 11-21-2019 13:29-0500 Body weight 99.7 kg [facility] 11-21-2019 13:29-0500 Height 172.7 cm [facility] 04-18-2019 16:28-0400 BMI (Body Mass Index) 31.02 kg/m2 [facility] 04-18-2019 16:28-0400 Body Temperature 97.59 [degF] [facility] 04-18-2019 16:28-0400 Height 172.7 cm [facility] 04-18-2019 16:28-0400 Weight 92.53 kg [facility] 03-01-2019 14:14-0400 BMI (Body Mass Index) 31.63 kg/m2 [facility] 03-01-2019 14:14-0400 Body Temperature 97.39 [degF] [facility] 03-01-2019 14:14-0400 Height 172.7 cm [facility] 03-01-2019 14:14-0400 Weight 94.35 kg [facility] 01-03-2019 15:24-0500 BMI (Body Mass Index) 31.63 kg/m2 [facility] 01-03-2019 15:24-0500 Body Temperature 97.3 [degF] [facility] 01-03-2019 15:24-0500 Body weight 94.35 kg [facility] 01-03-2019 15:24-0500 Height 172.7 cm [facility] 12-14-2018 14:44-0500 BMI (Body Mass Index) 30.87 kg/m2 Rajinder Green [facility] Work Phone: 12-14-2018 14:44-0500 Body Temperature 97.9 [degF] Rajinder [facility] Work Phone: 12-14-2018 14:44-0500 Height 172.7 cm [facility] Work Phone: 12-14-2018 14:44-0500 Weight 92.08 kg [facility] Work Phone: 11-24-2018 16:57-0500 Body Temperature 97 [degF] [facility] Work Phone: 11-24-2018 16:57-0500 BP Diastolic 77 mm[Hg] [facility] Work Phone: 11-24-2018 16:57-0500 BP Systolic 155 mm[Hg] [facility] Work Phone: 11-24-2018 16:57-0500 Pulse (Heart Rate) 79 /min [facility] Work Phone: 11-24-2018 16:57-0500 Pulse Oximetry 99 % [facility] Work Phone: 11-24-2018 16:57-0500 Respiratory Rate 18 /min [facility] Work Phone: 11-21-2018 09:00-0500 BMI (Body Mass Index) 32.19 kg/m2 [facility] Work Phone: 11-21-2018 09:00-0500 Height 172.7 cm [facility] Work Phone: 11-21-2018 09:00-0500 Weight 96.03 kg [facility] Work Phone: 10-23-2018 08:49-0500 BP Diastolic 75 mm[Hg] Pepe Chaka [employer] [facility] Work Phone: 10-23-2018 08:49-0500 BP Systolic 159 mm[Hg] Pepe Chaka [employer] [facility] Work Phone: 10-23-2018 08:49-0500 Pulse (Heart Rate) 100 /min Pepe Chaka [employer] [facility] Work Phone: 10-13-2018 09:01-0500 BMI (Body Mass Index) 31.93 kg/m2 Pepe Chaka [employer] [facility] Work Phone: 10-13-2018 09:01-0500 Body Temperature 97.81 [degF] Pepe Chaka [employer] [facility] Work Phone: 10-13-2018 09:01-0500 Height 172.7 cm Pepe Chaka [employer] [facility] Work Phone: 10-13-2018 09:01-0500 Pulse Oximetry 99 % Pepe Chaka [employer] [facility] Work Phone: 10-13-2018 09:01-0500 Respiratory Rate 16 /min Pepe Chaka [employer] [facility] Work Phone: 10-13-2018 09:01-0500 Weight 95.25 kg Pepe Chaka Ont Pat Testing [facility] Work Phone: Encounters Encounter Date Encounter Type Care Provider Facility Start: 07-23-2025 End: 07-23-2025 ambulatory Yulisa Batres MD Work Phone: [facility] Work Phone: Start: 07-23-2025 End: 07-23-2025 Patient encounter procedure Shante Saavedra DO -[facility] [place] Work Phone: Start: 07-17-2025 End: 07-17-2025 ambulatory Yulisa Batres MD Work Phone: [facility] Work Phone: Start: 07-17-2025 End: 07-17-2025 Patient encounter procedure Shante Saavedra DO -[facility] [place] Work Phone: Start: 06-26-2025 End: 06-26-2025 ambulatory Yulisa Batres MD Work Phone: [facility] Work Phone: Start: 06-26-2025 End: 06-26-2025 [...] 06-13-2025 ambulatory Yulisa Batres MD Work Phone: [facility] Work Phone: Start: 06-13-2025 End: 06-13-2025 Patient encounter procedure Magalie Kaufman DO -[facility] [place] Work Phone: Start: 05-15-2025 End: 05-15-2025 Bamboo flowsheet Ramon Barreto DO Work Phone: [facility] Start: 05-15-2025 End: 05-15-2025 Bamboo flowsheet Ramon Barreto DO Work Phone: [facility] Start: 05-15-2025 End: 05-15-2025 ambulatory RAMON BARRETO Not Available Start: 05-01-2025 End: 05-01-2025 ambulatory Yulisa Batres MD Work Phone: [facility] Work Phone: Start: 05-01-2025 End: 05-01-2025 Patient encounter procedure Gaby Chatman Christianson MECHANICAL FACILITIES TECHNICIAN-JUNIOR SOFTWARE ENGINEER-C -[facility] [place] Work Phone: Start: 04-04-2025 [...] Bamboo flowsheet Elie Harper DPM Work Phone: [facility] Start: 01-10-2025 End: 01-10-2025 Bamboo flowsheet Elie Harper DPM Work Phone: [facility] Start: 01-10-2025 End: 01-10-2025 Office outpatient visit 15 minutes Elie Harper DPM Work Phone: [facility] Comment on above: Cellulitis of left f oot (Primary Dx); Acquired deformity of left toe; Foot ulcer, left, with fat layer exposed (CMS/HCC); Other polyneuropathy Start: 01-10-2025 End: 01-10-2025 ambulatory ELIE HARPER Not Available Start: 01-02-2025 End: 01-02-2025 Office outpatient visit 15 minutes Elie Harper DPM Work Phone: [facility] Comment on above: Cellulitis of left f oot (Primary Dx); Acquired deformity of left toe Start: 01-02-2025 End: 01-02-2025 ambulatory ELIE HARPER Not Available Start: 01-02-2025 End: 01-02-2025 Bamboo flowsheet Elie Harper DPM Work Phone: [facility] Start: 01-02-2025 End: 01-02-2025 Bamboo flowsheet Elie Harper DPM Work Phone: [facility] Start: 12-12-2024 End: 12-12-2024 Bamboo flowsheet Gaby Christianson RACECOURSE BARRIER ATTENDANT Work Phone: [facility] Start: 12-12-2024 End: 12-12-2024 Bamboo flowsheet Gaby Christianson RACECOURSE BARRIER ATTENDANT Work Phone: [facility] [place] Start: 12-12-2024 End: 12-12-2024 Office outpatient visit 15 minutes Gaby Christianson RACECOURSE BARRIER ATTENDANT Work Phone: [facility] Comment on above: [...] 15 minutes New Mcclure MD Work Phone: [facility] Comment on above: Hx of total knee art hroplasty, left (Primary Dx); Hx of total knee arthroplasty, right Start: 11-28-2024 End: 11-28-2024 Subsequent hospital visit by physician New Mcclure MD Work Phone: [facility] Rad[facility] Start: 11-28-2024 ambulatory NEW MCCLURE [facility] Start: 11-15-2024 End: 11-15-2024 Office outpatient visit 15 minutes Elie Harper DPM Work Phone: [facility] Comment on above: Acquired deformity o [...] Bamboo flowsheet Magalie Kaufman DO Work Phone: [facility] [address] Start: 10-25-2024 End: 10-25-2024 Bamboo flowsheet Magalie Kaufman DO Work Phone: [facility] [address] Start: 10-25-2024 End: 10-25-2024 Patient encounter procedure Magalie Kafuman DO Work Phone: [facility] [address] [address] [...] encounter procedure Elie Harper DPM Work Phone: [facility] Comment on above: 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 (Primary Dx); Acquired deformity of left toe Start: 09-06-2024 End: 09-06-2024 ambulatory ELIE HARPER Not Available Start: 09-06-2024 End: 09-06-2024 Bamboo flowsheet Elie Harper DPM Work Phone: [facility] Start: 09-06-2024 End: 09-06-2024 Bamboo flowsheet Elie Harper DPM Work Phone: [facility] Start: 08-16-2024 End: 08-16-2024 Bamboo flowsheet Elie Caraballo Brown DPM Work Phone: [facility] Start: 08-16-2024 End: 08-16-2024 Bamboo flowsheet Elie Harper DPM Work Phone: [facility] Start: 08-16-2024 End: 08-16-2024 Office outpatient visit 15 minutes Elie Harper DPM Work Phone: [facility] Comment on above: Abscess of toe, righ t (Primary Dx); Acquired deformity of left toe Start: 08-16-2024 End: 08-16-2024 ambulatory ELIE HARPER Not Available Start: 08-02-2024 End: 08-02-2024 Bamboo flowsheet Elie Harper DPM Work Phone: [facility] Start: 08-02-2024 End: 08-02-2024 Bamboo flowsheet Elie Harper DPM Work Phone: [facility] Start: 08-02-2024 End: 08-02-2024 Office outpatient visit 15 minutes Elie Harper DPM Work Phone: [facility] Comment on above: Onychocryptosis (Norma ekta Dx); Toe pain, right; Abscess of toe, right; Acquired deformity of left toe Start: 08-02-2024 End: 08-02-2024 ambulatory ELIE HARPER Not Available Start: 07-31-2024 End: 07-31-2024 ambulatory RAMON BARRETO Not Available Start: 07-30-2024 End: 07-30-2024 Telephone encounter Elie Harper DPM Work Phone: [facility] Comment on above: Rx Start: 07-26-2024 End: 07-26-2024 Bamboo flowsheet Magalie Mandeep DO Work Phone: [facility] [employer] [address] Start: 07-26-2024 End: 07-26-2024 Bamboo flowsheet Magalie Mandeep DO Work Phone: [facility] Start: 07-26-2024 End: 07-26-2024 Patient encounter procedure Magalie Mandeep DO Work Phone: [facility] Comment on above: Blepharospasm (Prima ry [...] minutes Elie Harper DPM Work Phone: [facility] Comment on above: Onychocryptosis (Norma ekta Dx); Toe pain, right; Abscess of toe, right Start: 07-18-2024 End: 07-18-2024 ambulatory ELIE HARPER Not Available Start: 07-16-2024 End: 07-16-2024 Bamboo flowsheet Gaby Christianson RACECOURSE BARRIER ATTENDANT Work Phone: [facility] R[address]TE Start: 07-16-2024 End: 07-16-2024 Bamboo flowsheet Gaby Christianson RACECOURSE BARRIER ATTENDANT Work Phone: [facility] R[address] Start: 07-16-2024 End: 07-16-2024 Office outpatient visit 15 minutes Gaby Christianson RACECOURSE BARRIER ATTENDANT Work Phone: [facility] R[address] Comment on above: Spinal stenosis of [...] 10 minutes Elie Harper DPM Work Phone: [facility] Comment on above: Acquired deformity o f left toe (Primary Dx); Onychomycosis; Toe pain, bilateral Start: 06-28-2024 End: 06-28-2024 ambulatory ELIE HARPER Not Available Start: 05-31-2024 End: 05-31-2024 Office outpatient visit 15 minutes New Mcclure MD Work Phone: [facility] Comment on above: Pain in both knees, unspecified chronicity (Primary Dx) Start: 05-31-2024 End: 05-31-2024 Subsequent hospital visit by physician New Mcclure MD Work Phone: [facility] Start: 05-31-2024 ambulatory [facility] Start: 04-19-2024 End: 04-19-2024 Office outpatient visit 25 minutes New Mcclure MD Work Phone: [facility] Comment on above: Pain in both knees, unspecified chronicity (Primary Dx) Start: 04-19-2024 End: 04-19-2024 Subsequent hospital visit by physician New Mcclure MD Work Phone: [facility] Start: 04-19-2024 [facility] Start: 03-22-2024 End: 03-22-2024 Office outpatient visit 15 minutes New Mcclure MD Work Phone: [facility] Comment on above: Pain in both knees, unspecified chronicity (Primary Dx) Start: 03-22-2024 End: 03-22-2024 Subsequent hospital visit by physician New Mcclure MD Work Phone: [facility] Start: 03-22-2024 [facility] Start: 02-23-2024 End: 02-23-2024 Postop follow up visit related to original px Rajinder SCHWARTZ Work Phone: [facility] Comment on above: Hx of total knee art hroplasty, left (Primary Dx) Start: 02-23-2024 End: 02-23-2024 Subsequent hospital visit by physician Rajinder SCHWARTZ Work Phone: [facility] Start: 02-23-2024 ambulatory [facility] Start: 01-12-2024 End: 01-12-2024 Office outpatient visit 25 minutes New Mcclure MD Work Phone: [facility] Comment on above: Right knee pain, uns pecified chronicity (Primary Dx) Start: 01-12-2024 End: 01-12-2024 Subsequent hospital visit by physician New Mcclure MD Work Phone: [facility] Rad[facility] Start: 03-07-2024 ambulatory [facility] Start: 12-22-2023 End: 12-22-2023 Subsequent hospital visit by physician Rajinder Green APRN-MARTY Work Phone: [facility] Start: 12-22-2023 ambulatory YULISA BATRES [facility] Start: 11-03-2023 End: 11-03-2023 Admission to establishment New Mcclure MD Work Phone: [facility] Pre Admission Comment on above: Preop testing (Prima ry Dx); Abnormal finding of blood chemistry, unspecified; Abnormal coagulation profile Start: 11-03-2023 End: 11-03-2023 Patient encounter status New Mcclure MD Work Phone: [facility] Start: 09-01-2023 End: 09-01-2023 Office outpatient visit 40 minutes New Mcclure MD Work Phone: [facility] Comment on above: Hx of total knee art hroplasty, right (Primary Dx); Hx of total knee arthroplasty, left Start: 09-01-2023 End: 09-01-2023 Subsequent hospital visit by physician New Mcclure MD Work Phone: [facility] Start: 05-19-2023 End: 05-19-2023 Postop follow up visit related to original px Rajinder SCHWARTZ Work Phone: [facility] Comment on above: Hx of total knee art hroplasty, right (Primary Dx) Start: 05-19-2023 End: 05-19-2023 Subsequent hospital visit by physician Rajinder SCHWARTZ Work Phone: [facility] Start: 03-18-2023 End: 03-18-2023 Subsequent hospital visit by physician New Mcclure MD Work Phone: [facility] Start: 02-08-2023 End: 02-09-[address] [...] 08-31-2021 End: 08-31-2021 ambulatory Stephen Alicea Other [facility] [employer] Other Start: 08-31-2021 Office outpatient ne w 30 minutes Stephen Alicea [facility] Neuro[facility] Start: 05-07-2021 End: 05-08-2021 ambulatory Mary Resendez Facility:[facility] Start: 03-11-2021 End: 03-11-2021 Office outpatient visit 15 minutes New Mcclure MD Work Phone: [facility] Comment on above: Left knee pain, unsp ecified chronicity (Primary Dx); Right knee pain, unspecified chronicity Start: 11-19-2020 End: 11-19-2020 Office outpatient visit 15 minutes New Mcclure Work Phone: [facility] Comment on above: Hx of total knee art hroplasty, left (Primary Dx); Pain in prosthetic joint, initial encounter Start: 11-19-2020 End: 11-19-2020 Subsequent hospital visit by physician New Mcclure Work Phone: [facility] Rad[facility] Start: 11-21-2019 End: 11-21-2019 Office outpatient visit 15 minutes New Mcclure Work Phone: [facility] Comment on above: History of total kne e arthroplasty, left (Primary Dx); Arthritis of right knee Start: 11-21-2019 End: 11-21-2019 Subsequent hospital visit by physician New Mcclure Work Phone: [facility] Start: 04-18-2019 End: 04-18-2019 Office outpatient visit 15 minutes [employer] Phone: [facility] Comment on above: Right hip pain (Prim ric Dx); Left knee pain, unspecified chronicity; Right knee pain, unspecified chronicity Start: 04-18-2019 End: 04-18-2019 Patient encounter procedure New Mcclure Travolver Phone: [facility] [employer] Start: 03-01-2019 End: 03-01-2019 Subsequent hospital visit by physician New Mcclure Travolver Phone: [facility] [employer] Start: 03-01-2019 End: 03-01-2019 Letter encounter Provider Aurelio [facility] Start: 03-01-2019 End: 03-01-2019 Office outpatient visit 15 minutes [place] [employer] Phone: [facility] Comment on above: History of total kne e arthroplasty, left (Primary Dx); Right hip pain Start: 03-01-2019 End: 03-01-2019 Patient encounter procedure New Mcclure Travolver Phone: [facility] [employer] Start: 02-23-2019 End: 02-23-2019 Patient encounter procedure Other Other [facility] Start: 02-09-2019 End: 02-09-2019 Telephone encounter Marcie Lantigua [facility] Comment on above: Leg Swelling Start: 01-05-2019 End: 01-05-2019 Patient encounter procedure Other Other [facility] Start: 01-03-2019 End: 01-03-2019 Office outpatient visit 15 minutes [place] [employer] Phone: [facility] Comment on above: History of total kne e arthroplasty, left (Primary Dx) Start: 12-14-2018 End: 12-14-2018 Patient encounter procedure Rajinder Green Work Phone: [facility] [employer] Start: 12-14-2018 End: 12-14-2018 Postop follow up visit related to original px Rajinder Mosquedaey Work Phone: [facility] Comment on above: Hx of total knee art hroplasty, left (Primary Dx) Start: 12-06-2018 End: 12-06-2018 Telephone encounter Marcie Lantigua [facility] Comment on above: Skin Problem Start: 11-30-2018 End: 11-30-2018 Patient encounter procedure Other Other NOTES/RESULTS Start: 11-21-2018 End: 11-24-2018 Evaluation and management of inpatient New Mcclure Work Phone: [facility] Med Surg Comment on above: Pain in left knee Start: 10-23-2018 End: 10-23-2018 Patient encounter procedure New Mcclure Work Phone: [facility] Pre Admission Comment on above: Pre-op exam (Primary Dx) Start: 09-15-2018 End: 09-15-2018 Patient encounter procedure Richard Richmondkelton [facility] Start: 08-18-2017 Ambulatory Star Rashmi O'Neals Facility:[facility] Start: 07-24-2017 Ambulatory [facility] Facility:[facility] Start: 07-18-2017 End: 07-21-2017 Evaluation and management of inpatient [facility] Start: 07-01-2017 Ambulatory [facility] Procedures Date Procedure Procedure Detail Performing [...] 11-24-2018 End: 11-24-2018 CBC, EDIF, PLATELET Rajinder Sellaround Phone: Start: 11-23-2018 End: 11-23-2018 Blood count complete auto&auto difrntl wbc Rajinder Sellaround Phone: Start: 11-22-2018 End: 11-22-2018 Blood count complete auto&auto difrntl wbc Rajinder Sellaround Phone: Start: 11-21-2018 End: 11-21-2018 X-ray of left knee [employer] Phone: Start: 11-21-2018 End: 11-21-2018 Cell count misc body fluids w/differential count [employer] Phone: Start: 11-21-2018 End: 11-21-2018 Cul bact melissa aerobic isol xcpt ur blood/stool [employer] Phone: Start: 11-21-2018 End: 11-21-2018 Culture bacterial any source anaerobic iso&id [employer] Phone: Start: 11-21-2018 End: 11-21-2018 Culture fngi mold/yeast prsmptv oth xcpt blood [employer] Phone: Start: 11-21-2018 End: 11-21-2018 Culture tubercle/oth acid-fast bacilli any isol [employer] Phone: Start: 11-21-2018 End: 11-21-2018 REPEAT ABO/RH (D) TYPING [employer] Phone: Start: 11-21-2018 End: 11-21-2018 Cultyp nuc acid amp prb cult/isolate ea orgroslynm [facility]enda Phone: Start: 10-23-2018 End: 10-23-2018 Standard ECG [employer] Phone: Plan of Treatment Date Care Activity Detail Author Start: 02-19-2026 End: 02-19-2026 Patient encounter procedure 02/19/2026 9:00 AM EDT [facility] [address] [place] [phone] Ramon Barreto DO [address] [place] [address] [facility] Start: 11-27-2025 End: 11-27-2025 Patient encounter procedure 11/27/2025 10:30 AM EST Office Visit [facility] [address] [place] [address] New Mcclure MD [address] [place] [address] [facility] Start: 09-05-2025 End: 09-05-2025 Patient encounter procedure 09/05/2025 8:30 AM EDT [facility] [address] [place] [address] Elie Harper DPM [address] [address] [facility] Start: 07-08-2025 Influenza vaccination Influenza Vacc ine (#1) [facility] Start: 06-20-2025 End: 06-20-2025 Patient encounter procedure 06/20/2025 8:30 AM EDT Procedure Visit [facility] [address] [place] [address] Elie Harper DPM [address] [address] Pain due to onychomycosis of toenails of both feet (Primary Dx) [facility] Comment on above: 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 (Primary Dx) Start: 06-13-2025 End: 06-13-2025 Patient encounter procedure 06/13/2025 9:50 AM EDT Procedure Visit [facility] [address] [place] [id number] Elie Harper, PK [address] [facility] [address] [place] [address] [facility] Start: 05-15-2025 End: 05-15-2025 Patient encounter procedure 05/15/2025 9:00 AM EDT Office Visit [facility] [address] [place] [address] Ramon Barreto, DO [address] [place] [address] Arrived [facility] Comment on above: Arrived Start: 05-03-2025 End: 05-03-2025 Patient encounter procedure 05/03/2025 10:00 AM EDT Office Visit [facility] [address] [place] [address] Ramon Barreto, DO [address] [place] [address] [facility] Start: 05-01-2025 End: 05-01-2025 Patient encounter procedure 05/01/2025 9:40 AM EDT Office Visit [facility] [address] [place] [address] Gaby Christianson NP [address] [place] [address] [facility] Start: 04-08-2025 End: 04-08-2025 Patient encounter procedure 04/08/2025 9:20 AM EDT Office Visit [facility]ANSEN [address] [facility] [address] [place] [address] Gaby Christianson RACECOURSE BARRIER ATTENDANT [address] [place] [address] [facility] Start: 04-04-2025 End: 04-04-2025 Patient encounter procedure [facility] Comment on above: 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 (Primary Dx) Start: 03-14-2025 End: 03-14-2025 Patient encounter procedure 03/14/2025 11:00 AM EDT Procedure Visit [facility] [address] [place] [address] Magalie Kaufman DO [address] [place] [id number] [facility] Start: 03-07-2025 End: 03-07-2025 Patient [...] EDT Office Visit [facility] [address] [place] [phone] Elie Harper DPM [address] [address] Acquired deformity of left toe (Primary Dx); Other polyneuropathy [facility] Comment on above: Acquired deformity o f left toe (Primary Dx); Other polyneuropathy Start: 01-31-2025 End: 01-31-2025 Patient encounter procedure 01/31/2025 10:30 AM EDT Procedure Visit [facility] [address] [place] [address] Magalie Kaufman DO [address] [place] [address] [facility] Start: 01-24-2025 End: 01-24-2025 Patient encounter procedure 01/24/2025 2:40 PM EDT Procedure Visit [facility] [address] [facility] [address] [place] [address] Elie Harper DPM [address] [address] [facility] Start: 01-24-2025 End: 01-24-2025 Patient encounter procedure [facility] [place] [facility] Start: 01-17-2025 End: 01-17-2025 Patient encounter procedure 01/17/2025 10:00 AM EDT Office Visit [facility] [address] [facility] [address] [place] [address] Elie Harper DPM [address] [address] [facility] Start: 01-10-2025 End: 01-10-2025 Patient encounter procedure 01/10/2025 10:20 AM EST Office Visit [facility] [address] [address] Elie Harper DPM [address] [address] Cellulitis of left foot (Primary Dx); Acquired deformity of left toe [facility] Comment on above: Cellulitis of left f oot (Primary Dx); Acquired deformity of left toe Start: 01-02-2025 End: 01-02-2025 Patient encounter procedure 01/02/2025 3:00 PM EST Office Visit [facility] [address] [place] [phone] Elie Harper DPM [address] [address] Arrived [facility] Comment on above: Arrived Start: 12-12-2024 End: 12-12-2024 Patient encounter procedure [facility] [place] [address] Comment on above: Arrived Start: 12-01-2024 Potassium [Moles/vol ume] in Serum or Plasma POTASSIUM [facility] Start: 11-28-2024 End: 11-28-2024 Patient encounter procedure 11/28/2024 11:10 AM EST Office Visit [facility] [address] [place] [address] New Mcclure MD [address] [place] [address] [facility] Start: 11-15-2024 End: 11-15-2024 Patient encounter procedure [facility] Comment on above: 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 (Primary Dx) Start: 11-03-2024 Potassium [Moles/vol ume] in Serum or Plasma POTASSIUM [facility] Start: 10-25-2024 End: 10-25-2024 Patient encounter procedure [...] DERM [address] [place] [address] Audrey Gunter PA [address] [place] [address] [facility] Start: 07-31-2024 End: 07-31-2024 Patient encounter procedure 07/31/2024 9:45 AM EDT Office Visit [facility] [address] [place] [address] Ramon Barreto DO [address] [place] [address] [facility] Start: 07-26-2024 End: 07-26-2024 [...] 07-08-2024 Influenza vaccination INFLUENZA VACC INE (#1) [facility] Start: 06-28-2024 End: 06-28-2024 Patient encounter procedure 06/28/2024 2:00 PM EDT Procedure Visit [facility] [address] [facility] [address] [place] [address] Elie Harper, DPM [address] [facility] [address] [place] [address] Acquired deformity of left toe (Primary Dx); Onychomycosis; Toe pain, bilateral [facility] Comment on above: Acquired deformity o f left toe (Primary Dx); Onychomycosis; Toe pain, bilateral Start: 05-31-2024 End: 05-31-2024 Patient encounter procedure 05/31/2024 9:30 AM EDT Office Visit [facility] [address] [place] [address], [place] [address] New Mcclure MD [address] [place] [address] [facility] Start: 04-27-2024 Potassium [Moles/vol ume] in Serum or Plasma POTASSIUM [facility] Start: 04-25-2024 End: 04-25-2024 Patient encounter procedure 04/25/2024 11:40 AM EDT Office Visit [facility] Orthopedics [address] [place] [address], [place] [address] Rajinder Green APRN-MARTY [address] [place] [address] [facility] Start: 04-19-2024 End: 04-19-2024 Patient encounter procedure 04/19/2024 10:00 AM EDT Office Visit [facility] [address] [place] [address], [place] [address] New Mcclure MD [address] [place] [address] [facility] Start: 03-22-2024 End: 03-22-2024 Patient encounter procedure 03/22/2024 3:30 PM EDT Office Visit [facility] [address] [place] [address], [place] [address] New Mcclure MD [address] [place] [address] [facility] Start: 02-23-2024 End: 02-23-2024 Patient encounter procedure 02/23/2024 11:00 AM EDT Office Visit [facility] [address] [place] [address], [place] [address] Rajinder Green, MECHANICAL FACILITIES TECHNICIAN-FLOW MACHINE OPERATOR [address] [place] [address] [facility] Start: 11-29-2023 End: 11-29-2023 Evaluation and management of inpatient [facility] Comment on above: Failed total left [...] Routine Preop testing Expected: 11/03/2023, Expires: 12/05/2023 [facility] Work Phone: Comment on above: Expected: 11/03/2023 , Expires: 12/05/2023 Start: 09-01-2023 End: 09-01-2023 Patient encounter procedure 09/01/2023 1:00 PM EDT Office Visit [facility] [address] [facility] [place] [address] New Mcclure MD [address] [place] [address] [facility] Start: 08-31-2023 Screening for malign ant neoplasm of breast [facility] Start: 07-08-2023 COVID-19 VACCINE ( season) COVID-19 VACCINE ( season) [facility] Start: 07-08-2023 Influenza vaccination INFLUENZA VACC INE (#1) [facility] Start: 04-14-2023 End: 04-14-2023 ambulatory 04/14/2023 Pre-Operative Nurse Assessment Internal Medicine [facility] Pre Admission Start: 12-24-2022 COVID-19 VACCINE (5 - Pfizer series) COVID-19 VACCINE (5 - Pfizer series) [facility] Start: 07-08-2021 Influenza vaccination INFLUENZ A VACCINE (Season Ended) [facility] Start: 11-19-2020 End: 11-19-2020 Office Visit 11/19/2020 Office Visit OrthopaedicNew Castellano MD [address] [place] [address] [phone] [facility] Start: 11-24-2019 Potassium molar conc POTASSIUM Oh [facility] Work Phone: Start: 11-23-2019 Potassium molar conc POTASSIUM Oh [facility] Work Phone: Start: 11-22-2019 End: 11-22-2019 Office Visit 11/22/2019 Office Visit New Lucas MD [address] [place] [address] [phone] [facility] Start: 10-23-2019 Potassium molar conc POTASSIUM Av [facility] Start: 09-11-2019 Pneumococcal vaccination PNEUM OCOCCAL VACCINE SERIES (2 of 2 - PPSV23 or PCV20) [facility] Start: 09-11-2019 Pneumococcal Vaccine : 65+ Years (2 of 2 - PPSV23 or PCV20) Pneumococcal Vaccine: 65+ Years (2 of 2 - PPSV23 or PCV20) [facility] Start: 07-08-2019 Influenza vaccination [facility] [employer] Start: 04-18-2019 End: 04-18-2019 Office Visit 04/18/2019 Office Visit New Lucas MD [address] [place] [address] [phone] [facility] Start: 03-01-2019 End: 03-01-2019 Office Visit [facility] Comment on above: Arrived History of total kne e arthroplasty, left (Primary Dx) Start: 02-23-2019 End: 03-23-2019 X-ray of left knee XR KNEE LEFT 2 VIEWS Imaging Routine History of total knee arthroplasty, left Expected: 02/23/2019, Expires: 03/23/2019 [facility] Comment on above: Expected: 02/23/2019 , Expires: 03/23/2019 Start: 01-03-2019 End: 01-03-2019 Ambulatory 01/03/2019 Office Visit Orthopaedics New Mcclure MD [address] [id number] [phone] [facility] Start: 12-28-2018 End: 01-25-2019 X-ray of left knee XR KNEE LEFT 2 VIEWS Imaging Routine History of total knee arthroplasty, left Expected: 12/28/2018, Expires: 01/25/2019 [facility] Comment on above: Expected: 12/28/2018 , Expires: 01/25/2019 Start: 12-14-2018 End: 12-14-2018 Ambulatory [facility] Start: 11-21-2018 Ambulatory 11/21/2018 Pro cedure Pass [facility] Start: 11-21-2018 Inpatient Encounter [facility] Comment on above: REVISION ARTHROPLAST Y KNEE - extensor mech reconstruction - left Extensor mechanism m alalignment Start: 10-23-2018 End: 10-23-2018 Ambulatory 10/23/2018 Pre-Operative Nurse Assessment Internal Medicine [facility] Start: 07-21-2018 Finding of potassium level (finding) POTASSIUM [facility] Work Phone: Start: 2018 Pneumococcal vaccination [facility] Start: 07-08-2018 Influenza vaccination INFLUENZA VACC INE (#1) [facility] Work Phone: Start: 2013 RSV VACCINE (1 - 1-d ose 60+ series) RSV VACCINE (1 - 1-dose 60+ series) [facility] Start: 2003 Colonoscopy [facility] Work Phone: Start: 2003 Protein mass conc COLON CANCER SCREENING DISCUSSION [facility] Work Phone: Start: 2003 Zoster vaccine hzv l damian for subcutaneous use ZOSTER (SHINGLES) VACCINE (1 of 2) [facility] Start: 1998 Screening for malign ant neoplasm of colon COLORECTAL CANCER SCREENING DISCUSSION [facility] Start: 1993 Fasting lipid profile LIPID SCREENIN G [facility] Work Phone: Start: 1993 Lipid panel LIPID SCREENING [facility] Start: 1993 Protein mass conc MAMMOGRAM SC REENING DISCUSSION [facility] Work Phone: Start: 1993 Screening for malign ant neoplasm of breast MAMMOGRAM SCREENING DISCUSSION [facility] Start: 1993 Screening mammography MAMMOGRA M SCREENING DISCUSSION [facility] Work Phone: Start: 1974 Screening for malign ant neoplasm of cervix [facility] Start: 1972 Third diphtheria, te tanus and acellular pertussis (DTaP) vaccination TDAP (ADULT) [facility] Start: 1971 Tetanus vaccination TETANUS [facility] Work Phone: Start: 1969 COVID-19 VACCINE (1) COVID-19 VACCIN E (1) [facility] Start: 1953 Hepatitis C screening HEPATITI S C VIRUS SCREENING [facility] Start: 1953 Screening for malign ant neoplasm of colon [facility] Start: 1953 Tetanus vaccination TETANUS [facility] Start: 1953 End: 1953 Hepatitis C antibody, confirmatory test HEPATITIS C VIRUS SCREENING [facility] Work Phone: Start: 1953 End: 1953 Screening for osteoporosis DEXA SCAN DISCUSSION [facility] ACID FAST CULTURE [facility] Work Phone: Comment on above: ONE TIME for 1 Occur rences starting 11/21/2018 ANAEROBE CULTURE [facility] Work Phone: Comment on above: ONE TIME for 1 Occur rences starting 11/21/2018 BACTERIAL CULTURE AN D DIRECT SMEAR, LESION, TISSUE, DEVICE BACTERIAL CULTURE AND DIRECT SMEAR, LESION, TISSUE, DEVICE Routine Extensor mechanism malalignment ONE TIME for 1 Occurrences starting 11/21/2018 [facility] Work Phone: Comment on above: ONE TIME for 1 Occur rences starting 11/21/2018 Basic metabolic 2000 panel - Serum or Plasma BASIC METABOLIC PANEL Routine Pre-op exam Ordered: 10/23/2018 [facility] Work Phone: Comment on above: Ordered: 10/23/2018 BODY FLUID CULTURE A ND DIRECT SMEAR BODY FLUID CULTURE AND DIRECT SMEAR Routine 11/21/2018 11:00 AM EST [facility] Work Phone: CBC, EDIF, PLATELET CBC, EDIF, P LATELET Routine Pre-op exam Ordered: 10/23/2018 [facility] Work Phone: Comment on above: Ordered: 10/23/2018 Electromyography [facility] FUNGUS CULTURE [facility] Work Phone: Comment on above: ONE TIME for 1 Occur rences starting 11/21/2018 Hemoglobin A1c/Hemoglobin.total mass fraction (Bld) HEMOGLOBIN A1C Routine Pre-op exam Ordered: 10/23/2018 [facility] Work Phone: Comment on above: Ordered: 10/23/2018 LARGE JOINT INJECTIO N: R knee LARGE JOINT INJECTION: R knee Procedures Routine Right knee pain, unspecified chronicity 04/18/2019 4:00 PM EDT [facility] MR Lumbar spine WO contrast [facility] PROTIME-INR PROTIME-INR STAT Pre-op exam Ordered: 10/23/2018 [facility] Work Phone: Comment on above: Ordered: 10/23/2018 Radiography for bone length studies XR BONE LENGTH STUDY Imaging Routine Hx of total knee arthroplasty, right 09/01/2023 12:48 PM EDT [facility] Radiography for bone length studies XR BONE LENGTH STUDY Imaging Routine Hx of total knee arthroplasty, left Ordered: 02/21/2024 [facility] Comment on above: Ordered: 02/21/2024 Radiography of hip XR HIP WITH P NICOLAS RIGHT Imaging Routine Right hip pain 03/01/2019 2:59 PM EDT [facility] SCREEN: MRSA ONLY, N VIVI (ISOLATION SCREEN) SCREEN: MRSA ONLY, NARES (ISOLATION SCREEN) Routine Pre-op exam Ordered: 10/23/2018 [facility] Work Phone: Comment on above: Ordered: 10/23/2018 Standard ECG ECG Routine Pre- op exam 10/23/2018 8:53 AM [facility] Work Phone: TISSUE CULTURE TISSUE CULTURE R outine 11/21/2018 11:00 AM [facility] Work Phone: TYPE AND SCREEN - POSSIBLE TRANSFUSION TYPE AND SCREEN - POSSIBLE TRANSFUSION Routine Pre-op exam Ordered: 10/23/2018 [facility] Work Phone: Comment on above: Ordered: 10/23/2018 TYPE AND SCREEN - POSSIBLE TRANSFUSION TYPE AND SCREEN - POSSIBLE TRANSFUSION Blood Bank Today Preop testing 11/03/2023 9:50 AM [employer] URINALYSIS, MACRO URINALYSIS, MA INTEGRITY ASSESSOR Routine Pre-op exam Ordered: 10/23/2018 [facility] Work Phone: Comment on above: Ordered: 10/23/2018 X-ray of left knee [facility] Work Phone: End: 03-01-2019 X-ray of left knee XR KNEE LEFT 2 VIEWS Imaging Routine History of total knee arthroplasty, left 1 Occurrences starting 03/01/2019 until 03/01/2019 [facility] Comment on above: 1 Occurrences starti ng 03/01/2019 until 03/01/2019 XR Knee - left 2 Views XR KNEE L EFT 2 VIEWS Imaging Routine Left knee pain, unspecified chronicity 03/18/2023 11:12 AM EDT [facility] XR Knee - left 2 Views XR KNEE L EFT 1-2 VIEWS Imaging Routine Hx of total knee arthroplasty, left 12/22/2023 1:17 PM EST [facility] XR Knee - left 2 Views XR KNEE L EFT 1-2 VIEWS Imaging Routine Hx of total knee arthroplasty, left 02/23/2024 11:01 AM EDT [facility] XR Knee - left 2 Views XR KNEE L EFT 1-2 VIEWS Imaging Routine Pain in both knees, unspecified chronicity 03/22/2024 3:36 PM EDT [facility] Work Phone: XR Knee - left 2 Views XR KNEE L EFT 1-2 VIEWS Imaging Routine Pain in both knees, unspecified chronicity 04/19/2024 10:07 AM EDT [facility] XR Knee - left 2 Views XR KNEE L EFT 1-2 VIEWS Imaging Routine Pain in both knees, unspecified chronicity 05/31/2024 9:37 AM EDT [facility] XR Knee - left 3 Views XR KNEE L EFT 3 VIEWS Imaging Routine Hx of total knee arthroplasty, left 09/01/2023 12:48 PM EDT [employer] Work Phone: XR Knee - left 3 Views XR KNEE L EFT 3 VIEWS Imaging Routine Hx of total knee arthroplasty, left 11/28/2024 11:17 AM [facility] [employer] Work Phone: XR Knee - right 2 Views XR KNEE RIGHT 2 VIEWS Imaging Routine Right knee pain, unspecified chronicity 03/18/2023 11:12 AM EDT [facility] End: 01-12-2024 XR Knee - right 2 Views [employer] Work Phone: Comment on above: 1 Occurrences starti ng 01/12/2024 until 01/12/2024 End: 02-23-2024 XR Knee - right 2 Views [facility] Comment on above: 1 Occurrences starti ng 02/23/2024 until 02/23/2024 XR Knee - right 2 Views XR KNEE RIGHT 1-2 VIEWS Imaging Routine Pain in both knees, unspecified chronicity 03/22/2024 3:36 PM EDT [employer] XR Knee - right 2 Views XR KNEE RIGHT 1-2 VIEWS Imaging Routine Pain in both knees, unspecified chronicity 04/19/2024 10:07 AM [email or web address] Work Phone: XR Knee - right 2 Views XR KNEE RIGHT 1-2 VIEWS Imaging Routine Pain in both knees, unspecified chronicity 05/31/2024 9:37 AM EDT [facility] XR Knee - right 2 Views XR KNEE RIGHT 1-2 VIEWS Imaging Routine Hx of total knee arthroplasty, right 11/28/2024 11:17 AM EST [facility] Knee - right 3 Views XR KNEE RIGHT 3 VIEWS Imaging Routine Hx of total knee arthroplasty, right 05/19/2023 2:33 PM EDT [facility] Work Phone: XR Knee - right 3 Views XR KNEE RIGHT 3 VIEWS Imaging Routine Hx of total knee arthroplasty, right 09/01/2023 12:48 PM EDT [facility] XR Knee - right 3 Views XR KNEE RIGHT 3 VIEWS Imaging Routine Right knee pain, unspecified chronicity Ordered: 01/09/2024 [facility] Comment on above: Ordered: 01/09/2024 Immunizations Immunization Date Immunization Notes Care Provider [facility] 09-03-2024 influenza virus vaccine, unspecified formulation Ramon Barreto DO Work Phone: [facility] 08-25-2023 influenza virus vaccine, unspecified formulation New Mcclure MD Work Phone: [facility] 08-23-2022 influenza virus vaccine, unspecified formulation Rajinder SCHWARTZ Work Phone: [facility] 09-11-2018 pneumococcal conjugate vaccine, 13 valent Elie Harper DPM Work Phone: [facility] 08-18-2015 influenza virus vaccine, unspecified formulation Richard Macdonald [facility] Work Phone: Payers Date Payer Category Payer Self-pay [id number] 2018 [facility] Shield [facility] er [id number] 2018 Unknown [id number] [id number] .7.3.175225.315 2017 Medicare MEDICARE MEDICAR E A AND B xxxxxxxxxxx 2017-Present [place], [place] xxxxxxxxxxx [id number] .[id number] 2017 Medicare MEDICARE MEDICAR E A AND B [id number] 2017-Present [place], [place] [id number] .7.3.713307.315 2017 Medicare [id number]. 1.13.172.2 .7.3.760278.315 2017 Unknown ANTHEM ANTHEM TR ADITIONAL xxxxxxxxxxxx 2017-Present [id number] [id number] .7.3.806881.315 2017 Unknown ANTHEM ANTHEM TR ADITIONAL [id number] 2017-Present [id number] 1.2.840.874902.1.13.172.2 .7.3.398183.315 2017 Medicare [id number] 2.16.840.1.373870.19 1959 Blue Cross Blue Shield [id number] 2.16.840.1.100674.19 1953 Unknown [id number] 2.16.840.1.684491.3.579.2 .593 1953 Unknown [id number] 2.16.840.1.954361.3.579.2 .593 1953 Unknown [id number] 2.16.840.1.959277.3.579.2 .593 1953 Unknown [id number] 2.16.840.1.530436.3.579.2 .593 1953 Unknown [id number] 2.16.840.1.870511.3.579.2 .593 1953 Unknown [id number] 2.16.840.1.757046.3.579.2 .593 1953 Unknown [id number] 2.16.840.1.408412.3.579.2 .59 1953 Unknown [id number] 2.16.840.1.254200.3.579.2 .593 1953 Unknown [id number] 2.16.840.1.171775.3.579.2 .98 1953 Unknown [id number] 2.16.840.1.849071.3.579.2 .983 1953 Unknown [id number] 2.16.840.1.987309.3.579.2 .98 1953 Unknown [id number] 2.16.840.1.150994.3.579.2 .983 1953 Unknown [id number] 2.16.840.1.547201.3.579.2 .98 1953 Unknown [id number] 2.16.840.1.391132.3.579.2 .983 1953 Unknown [id number] 2.16.840.1.531600.3.579.2 .98 1953 Unknown [id number] 2.16.840.1.105700.3.579.2 .983 1953 Unknown [id number] 2.16.840.1.917299.3.579.2 .98 1953 Unknown [id number] 2.16.840.1.897713.3.579.2 .983 1953 Unknown [id number] 2.16.840.1.263606.3.579.2 .1953 Unknown [id number] 2.16.840.1.977947.3.579.2 .1953 Unknown [id number] 2.16.840.1.416756.3.579.2 .1953 Unknown [id number] 2.16.840.1.018030.3.579.2 .98 1953 Unknown [id number] 2.16.840.1.834382.3.579.2 .1258 1953 Unknown [id number] 2.16.840.1.816957.3.579.2 .1258 1953 Unknown [id number] 2.16.840.1.149115.3.579.2 .1258 1953 Unknown [id number] 2.16.840.1.657541.3.579.2 .1258 1953 Unknown [id number] 2.16.840.1.422074.3.579.2 .1258 1953 Unknown [id number] 2.16.840.1.007341.3.579.2 .1258 1953 Unknown [id number] 2.16.840.1.341075.3.579.2 .1258 1953 Unknown [id number] 2.16.840.1.036198.3.579.2 .1258 1953 Unknown [id number] 2.16.840.1.943484.3.579.2 .1258 1953 Unknown [id number] 2.16.840.1.127864.3.579.2 .1258 1953 Unknown [id number] 2.16.840.1.166787.3.579.2 .1258 1953 Unknown [id number] 2.16.840.1.887963.3.579.2 .1258 1953 Unknown [id number] 2.16.840.1.962829.3.579.2 .1258 1953 Unknown [id number] 2.16.840.1.981050.3.579.2 .1258 1953 Unknown [id number] 2.16.840.1.815210.3.579.2 .1258 1953 Unknown [id number] 2.16.840.1.751359.3.579.2 .1258 1953 Unknown [id number] 2.16.840.1.926034.3.579.2 .1258 1953 Unknown [id number] 2.16.840.1.991311.3.579.2 .1258 1953 Unknown [id number] 2.16.840.1.391585.3.579.2 .1258 1953 Unknown [id number] 2.16.840.1.925777.3.579.2 .1258 1953 Unknown [id number] 2.16.840.1.466212.3.579.2 .1258 1953 Unknown [id number] 2.16.840.1.167481.3.579.2 .1258 1953 Unknown [id number] 2.16.840.1.788694.3.579.2 .1258 1953 Unknown [id number] 2.16.840.1.908548.3.579.2 .1258 1953 Unknown [id number] 2.16.840.1.440473.3.579.2 .1258 1953 Unknown [id number] 2.16.840.1.846903.3.579.2 .1259 Private Health Insurance [id number] Unknown [facility] [id number] Unknown [id number] 2.16.840.1.814345.3.579.2 .531 Social History Date Type Detail Facility Start: 10-23-2018 End: 08-31-2021 Tobacco smoking status NHIS Never smoker [facility] Start: 1955 Sex Assigned At Not on file [facility] Work Phone: Start: 11-21-2019 End: 11-28-2024 Alcohol intake Current non-drinker of alcohol (finding) [facility] Start: 11-19-2020 End: 07-13-2023 Tobacco use and exposure Never used [facility] Start: 05-19-2023 End: 05-15-2025 [facility] Assigned At [facility] Start: 05-19-2023 End: 05-15-2025 History of Social function [facility] Start: 03-30-2023 Gender identity Identifies as female gender (finding) [facility] Start: 04-16-2023 End: 04-26-2023 Exposure to SARS-CoV-2 (event) Not sure [facility] Start: 1955 Sex Assigned At Female [facility] Has the electric, [employer], oil, or water company threatened to shut off services in your home in past 12Mo No [facility] (I/We) worried wheth er (my/our) food would run out before (I/we) got money to buy more. Never true [facility] In the past 12 month s, has lack of transportation kept you from medical appointments or from getting medications? No [facility] Start: 08-16-2024 End: 06-20-2025 Alcoholic beverage intake [facility] Start: 04-24-2024 Alcohol Comment Caffeine: Current some days [facility] Start: 03-30-2023 Sexual orientation Heterosexual (finding) [facility] Sex Female (finding) [facility] Medical Equipment Procedure Code Equipment Code Equipment Origin al Text Equipment Identifier Dates Prolite Mesh 25. 4 Cm X 35.5cm Start: 11-21-2018 [facility] R 1x40 S nacho - [id number] Start: 11-21-2018 Prolite Mesh 25. 4 Cm X 35.5cm Start: 11-21-2018 [facility] R 1x40 S nacho - [id number] Start: 11-21-2018 Prolite Mesh 25. 4 Cm X 35.5cm Start: 11-21-2018 Palacos R 1x40 S nacho - [id number] Start: 11-21-2018 Prolite Mesh 25. 4 Cm X 35.5cm Start: 11-21-2018 Palacos R 1x40 S nacho - [id number] Start: 11-21-2018 Prolite Mesh 25. 4 Cm X 35.5cm Start: 11-21-2018 Prolite Mesh 25. 4 Cm X 35.5cm Start: 11-21-2018 Palacos R 1x40 S nacho - [id number] Start: 11-21-2018 Palacos R 1x40 S nacho - [id number] Start: 11-21-2018 Prolite Mesh 25. 4 Cm X 35.5cm Start: 11-21-2018 Prolite Mesh 25. 4 Cm X 35.5cm Start: 11-21-2018 Palacos R 1x40 S nacho - [id number] Start: 11-21-2018 Palacos R 1x40 S nacho - [id number] Start: 11-21-2018 Prolite Mesh 25. 4 Cm X 35.5cm Start: 11-21-2018 Prolite Mesh 25. 4 Cm X 35.5cm Start: 11-21-2018 Palacos R 1x40 S nacho - [id number] Start: 11-21-2018 Palacos R 1x40 S nacho - [id number] Start: 11-21-2018 Prolite Mesh 25. 4 Cm X 35.5cm Start: 11-21-2018 Prolite Mesh 25. 4 Cm X 35.5cm Start: 11-21-2018 Palacos R 1x40 S nacho - [id number] Start: 11-21-2018 Palacos R 1x40 S nacho - [id number] Start: 11-21-2018 Prolite Mesh 25. 4 Cm X 35.5cm Start: 11-21-2018 Prolite Mesh 25. 4 Cm X 35.5cm Start: 11-21-2018 Palacos R 1x40 S nacho - [id number] Start: 11-21-2018 Palacos R 1x40 S nacho - [id number] Start: 11-21-2018 Prolite Mesh 25. 4 Cm X 35.5cm Start: 11-21-2018 Prolite Mesh 25. 4 Cm X 35.5cm Start: 11-21-2018 Palacos R 1x40 S nacho - [id number] Start: 11-21-2018 Palacos R 1x40 S nacho - [id number] Start: 11-21-2018 Prolite Mesh 25. 4 Cm X 35.5cm Start: 11-21-2018 Prolite Mesh 25. 4 Cm X 35.5cm Start: 11-21-2018 Palacos R 1x40 S nacho - [id number] Start: 11-21-2018 Palacos R 1x40 S nacho - [id number] Start: 11-21-2018 Prolite Mesh 25. 4 Cm X 35.5cm [id number] Start: 11-21-2018 Palacos R 1x40 S nacho - [id number] Start: 11-21-2018 Prolite Mesh 25. 4 Cm X 35.5cm Start: 11-21-2018 Prolite Mesh 25. 4 Cm X 35.5cm Start: 11-21-2018 Palacos R 1x40 S nacho - [id number] Start: 11-21-2018 Palacos R 1x40 S nacho - [id number] Start: 11-21-2018 Prolite Mesh 25. 4 Cm X 35.5cm Start: 11-21-2018 Palacos R 1x40 S nacho - [id number] Start: 11-21-2018 Prolite Mesh 25. 4 Cm X 35.5cm Start: 11-21-2018 Prolite Mesh 25. 4 Cm X 35.5cm Start: 11-21-2018 Palacos R 1x40 S nacho - [id number] Start: 11-21-2018 Palacos R 1x40 S nacho - [id number] Start: 11-21-2018 Attune Tibial In sert Fixed [...] Palacos R+G 1x40 Single With Gentamicin - [id number] Start: 11-29-2023 Palacos R 1 X 40 Us - [id number] Start: 04-26-2023 Attune Knee Syst em Revision Tibial Base Fixed Bearing [id number] Start: 04-26-2023 Attune Femoral Posterior Stabilized [id number] Start: 04-26-2023 Attune Patella Medialized Dome [id number] Start: 04-26-2023 [place] Cancell ous Bone Screw [id number] Start: 04-26-2023 Attune Knee Syst em Revision Pressfit Stem [id number] Start: 11-29-2023 [facility] R & G Scott ne Cement High-Viscosity With Gentamicin - [id number] Start: 11-29-2023 Attune Knee Syst em [...] mouth in the morning., Disp: , Rfl: Rbcxmfdlpue-Hykcqzuag-Vag C-Mn (Glucosamine 1500 Complex) capsule, as directed [...] Insecurity: No Food Insecurity (11/29/2023) Received from [facility] Hunger Vital Sign Worried About Running Out of Food in the Last Year: Never true Ran Out of Food in the Last Year: Never true Transportation Needs: No Transportation Needs (11/29/2023) Received from [facility] PRAPARE - Transportation Lack of Transportation (Medical): No Lack of Transportation (Non-Medical): No Physical Activity: Not on file Stress: Not on file Social Connections: Not on file Intimate Partner Violence: Not on file Housing Stability: Low Risk (11/29/2023) Received from [facility] Housing Stability Vital Sign Unable to [...] Elie Harper DPM documented in this encounter [facility] 05-15-2025 Note Right Eye Reliability was good. Progression has been stable. Foveal threshold was normal. Findings include normal observations. Left Eye Reliability was good. Progression has been stable. Foveal threshold was normal. Findings include normal observations. [facility] 05-15-2025 Note Right Eye Quality was good. Scan locations included subfoveal. Progression has been stable. Findings include normal observations. Left Eye Quality was poor. Scan locations included subfoveal. Progression has been stable. Findings include normal observations. Notes Good scan with normal appearance [facility] 05-15-2025 History of Presen t illness Narrative [...] 1,000 mcg by mouth in the morning. Hwoqvgmniwz-Wznsrxkes-Pqn C-Mn (Glucosamine 1500 Complex) capsule as directed [...] above evaluations. This will be adjusted to s0rhdyog when deemed necessary due to macular risk [...] laser capsulotomy, they are to notify their fast food supervisor promptly if they have a significant change [...] scrubs were recommended. documented in this encounter [facility] 05-01-2025 Evaluation note Diagnosis Onset Date Resolution Blepharospasm chronic May 01, 2025 9:33am Carpal tunnel syndrome, bilateral chronic May 01, 2025 9:33am DDD (degenerative disc disease), lumbar chronic May 01, 2025 9:33am Facet arthritis of lumbar region chronic May 01, 2025 9:33am Polyneuropathy chronic May 01, 2025 9:33am Spinal stenosis of lumbar region chronic May 01, 2025 9:33am [facility] Work Phone: 1(290) 575-492006-25-2025 Evaluation note* Diagnosis Onset Date Resolution Status [...] lumbar region chronic July 17, 2025 10:38am [facility] Work Phone: 1(750) 943-859306-25-2025 Evaluation note* Diagnosis Onset Date Resolution Status [...] lumbar region chronic July 17, 2025 10:38am [facility] Work Phone: 1(538) 627-531705-29-2025 History of Present illness Narrative* Elie Harper, [...] mouth in the morning., Disp: , Rfl: Jbbdvlrsivg-Opvvmwhnx-Tnb C-Mn (Glucosamine 1500 Complex) capsule, as directed [...] Insecurity: No Food Insecurity (11/29/2023) Received from [facility] Hunger Vital Sign Worried About Running Out of Food in the Last Year: Never true Ran Out of Food in the Last Year: Never true Transportation Needs: No Transportation Needs (11/29/2023) Received from [facility] PRAPARE - Transportation Lack of Transportation (Medical): No Lack of Transportation (Non-Medical): No Physical Activity: Not on file Stress: Not on file Social Connections: Not on file Intimate Partner Violence: Not on file Housing Stability: Low Risk (11/29/2023) Received from [facility] Housing Stability Vital Sign Unable to [...] 10 Elie Harper DPM documented in this encounterCrossroads Regional Medical [id number] Telephone encounter Note* Telephone Encounter - Gaby Christianson NP - 03/20/2025 3:00 PM EDT OARRS reviewed. Due now. Prescription sent. [facility] [id number] Miscellaneous Notes* Telephone Encounter - Gaby Christianson NP - 03/20/2025 3:00 PM EDT OARRS reviewed. Due now. Prescription sent. * Telephone Encounter - REGINALD Snider - 03/20/2025 2:24 PM EDT Patient left message requesting refill of pregabalin 25mg sent to [facility] in [place]. (.Continue Lyrica 25 mg by mouth twice a day ... Per Gaby Christianson NP on 12/12/24) documented in this [facility]05-14-2025 Telephone encounter Note* Telephone Encounter - REGINALD Snider - 03/20/2025 2:24 PM EDT Patient left message requesting refill of pregabalin 25mg sent to [email or web address] in [place]. (.Continue Lyrica 25 mg by mouth twice a day ... Per Gaby Christianson RACECOURSE BARRIER ATTENDANT on 12/12/24) [facility] [id number] History of Present illness Narrative* Elie Harper [...] mouth in the morning., Disp: , Rfl: Tzgprqtursr-Adrjavqfd-Hfs C-Mn (Glucosamine 1500 Complex) capsule, as directed [...] gear Elie Harper DPM documented in this encounterCrossroads Regional Medical [id number] History of Present illness Narrative* Magalie Kaufman [...] were sterilized with 70% isopropanol. Lot # [id number] Expiration: 01/2026 Dilution Per 100 units diluted with 1mL of 0.9% Sodium Chloride Procedure Right superior Lateral orbicularis oculi 7.5 units Right lateral orbicularis oculi 7.5 units Right inferior lateral orbicularis oculi 7.5 units Right inferior orbicularis oculi medial 2.5 units Right superior medial orbicularis oculi 2.5 units Right spa director/finance 2.5 units Right masseter 5+10+5 units Right [...] when to seek emergent treatment. Procedure Codes 65838 Chemodenervation of facial muscle J0585 Botulinum toxin a per unit, Units: Follow Up 3 months Botox documented in this encounterCrossroads Regional Medical CenterYevidjodmv99-64-3608 History of Present illness Narrative* Elie Harper [...] Fibromyalgia Hemifacial spasm History of transfusion Hypertension ([facility]) Muscle spasm Osteopenia Peripheral neuropathy Polyneuropathy PVD (peripheral vascular disease) ([facility]) Radiculopathy, lumbosacral region Small fiber neuropathy Spinal stenosis excluding cervical region lumbar region, without neurogenic claudication Spondylolisthesis Trigeminal neuralgia ([facility]) Medications: Current Outpatient Medications: acetaminophen (Tylenol 8 [...] mouth in the morning., Disp: , Rfl: Snnzuasaadc-Iupirycjr-Fqq C-Mn (Glucosamine 1500 Complex) capsule, as directed [...] hours Elie Harper DPM documented in this encounterCrossroads Regional Medical [id number] Telephone encounter Note* Telephone Encounter - Elie Estrada MA - 02/19/2025 12:47 PM EDT Strange the med got removed. The Lyrica is needing refill. Added. [facility] CenterNmvunkhidm24-86-0967 Miscellaneous Notes* Telephone Encounter - Elie Estrada MA - 02/19/2025 12:47 PM EDT Strange the med got removed. The Lyrica is needing refill. Added. * Telephone Encounter - Deidre Holcomb MA - 02/19/2025 12:20 PM EDT For what medication? * Telephone Encounter - Elie Estrada MA - 02/19/2025 10:26 AM EDT OARRS Reviewed due today documented in this encounterCrossroads Regional Medical CenterQkqillfiqh77-13-4679 Telephone encounter Note* Telephone Encounter - Deidre Holcomb MA - 02/19/2025 12:20 PM EDT For what medication? [facility] CenterEzpjbjjykz39-15-7580 Telephone encounter Note* Telephone Encounter - Elie Estrada MA - 02/19/2025 10:26 AM EDT OARRS Reviewed due today [facility] [id number] History of Present illness Narrative* Elie Harper [...] Peripheral neuropathy Polyneuropathy PVD (peripheral vascular disease) ([facility]) Radiculopathy, lumbosacral region Small fiber neuropathy Spinal stenosis excluding cervical region lumbar region, without neurogenic claudication Spondylolisthesis Trigeminal neuralgia ([facility]) Medications: Current Outpatient Medications: acetaminophen (Tylenol 8 [...] mouth in the morning., Disp: , Rfl: Wvuhttfmvep-Hjgqjegok-Xpd C-Mn (Glucosamine 1500 Complex) capsule, as directed [...] p.r.n. Elie Harper DPM documented in this encounterCrossroads Regional Medical [id number] History of Present illness Narrative* Elie Harper, [...] Fibromyalgia Hemifacial spasm History of transfusion Hypertension ([facility]) Muscle spasm Osteopenia Peripheral neuropathy Polyneuropathy PVD (peripheral vascular disease) ([facility]) Radiculopathy, lumbosacral region Small fiber neuropathy Spinal stenosis excluding cervical region lumbar region, without neurogenic claudication Spondylolisthesis Trigeminal neuralgia ([facility]) Medications: Current Outpatient Medications: acetaminophen (Tylenol 8 [...] mouth in the morning., Disp: , Rfl: Kvjddekiyxd-Ldstddknv-Xtd C-Mn (Glucosamine 1500 Complex) capsule, as directed [...] patient. Elie Harper DPM documented in this encounterNOSaint [facility] CenterIrfxcfopbg34-25-5265 Telephone encounter Note* Telephone Encounter - Shelly Ford NP - 01/17/2025 2:45 PM EDT OARRs reviewed. Rx sent for [facility] CenterTunyzhdeks78-91-2955 Miscellaneous Notes* Telephone Encounter - Shelly Ford NP - 01/17/2025 2:45 PM EDT OARRs reviewed. Rx sent for [place]. * Telephone Encounter - Elie Estrada MA - 01/17/2025 9:18 AM EDT The pt calls in requesting a refill of pregabalin 12/12/2024 Continue Lyrica 25 mg by mouth twice a day. OARRS reviewed due 01/20/2025 documented in this encounterCrossroads Regional Medical CenterEcyebbyofp94-39-1544 History of Present illness Narrative* Elie Harper [...] mouth in the morning., Disp: , Rfl: Fmxtowhlprb-Algydwsjb-Ido C-Mn (Glucosamine 1500 Complex) capsule, as directed [...] Insecurity: No Food Insecurity (11/29/2023) Received from [facility], [facility] Hunger Vital Sign Worried About Running Out of Food in the Last Year: Never true Ran Out of Food in the Last Year: Never true Transportation Needs: No Transportation Needs (11/29/2023) Received from [facility], [facility] PRAPARE - Transportation Lack of Transportation (Medical): No Lack of Transportation (Non-Medical): No Physical Activity: Not on file Stress: Not on file Social Connections: Not on file Intimate Partner Violence: Not on file Housing Stability: Low Risk (11/29/2023) Received from [facility], [facility] Housing Stability Vital Sign Unable to Pay [...] risks, alternatives, benefits, post op complications and termite control technician expectations were discussed including but not limited to: infection,bone infection,wound dehiscence hardware failure and irritation,wound dehiscence,delay union/mal union/non union of bone. RSDS,neuroma,duty limitations,DVT/PE, [place],nerve damage, scar, loss of sensation, swelling. Pt [...] DPM January 17, 2025 documented in this encounterCrossroads Regional Medical [id number] Telephone encounter Note* Telephone Encounter - Elie Estrada MA - 01/17/2025 9:18 AM EDT The pt calls in requesting a refill of pregabalin 12/12/2024 Continue Lyrica 25 mg by mouth twice a day. OARRS reviewed due 01/20/2025 [facility] CenterEzovuzmshf77-07-0743 History of Present illness Narrative* Elie Harper [...] Peripheral neuropathy Polyneuropathy PVD (peripheral vascular disease) ([facility]) Radiculopathy, lumbosacral region Small fiber neuropathy Spinal stenosis excluding cervical region lumbar region, without neurogenic claudication Spondylolisthesis Trigeminal neuralgia ([facility]) Medications: Current Outpatient Medications: acetaminophen (Tylenol 8 [...] mouth in the morning., Disp: , Rfl: Cpgvymphszv-Mgyxheyey-Rvv C-Mn (Glucosamine 1500 Complex) capsule, as directed [...] Insecurity: No Food Insecurity (11/29/2023) Received from [facility], [facility] Hunger Vital Sign Worried About Running Out of Food in the Last Year: Never true Ran Out of Food in the Last Year: Never true Transportation Needs: No Transportation Needs (11/29/2023) Received from [facility], [facility] PRAPARE - Transportation Lack of Transportation (Medical): No Lack of Transportation (Non-Medical): No Physical Activity: Not on file Stress: Not on file Social Connections: Not on file Intimate Partner Violence: Not on file Housing Stability: Low Risk (11/29/2023) Received from [facility], [facility] Housing Stability Vital Sign Unable to Pay [...] Patient may continue with conservative treatments including cmxi-pmp-ngnqmub anti- inflammatories and other treatments suggested today. [...] daily Elie Harper DPM documented in this encounterCrossroads Regional Medical [id number] History of Present illness Narrative* Elie Harper [...] mouth in the morning., Disp: , Rfl: Sygzrfmngmh-Djxuidafd-Ivr C-Mn (Glucosamine 1500 Complex) capsule, as directed [...] Insecurity: No Food Insecurity (11/29/2023) Received from [facility], [facility] Hunger Vital Sign Worried About Running Out of Food in the Last Year: Never true Ran Out of Food in the Last Year: Never true Transportation Needs: No Transportation Needs (11/29/2023) Received from [facility], [facility] PRAPARE - Transportation Lack of Transportation (Medical): No Lack of Transportation (Non-Medical): No Physical Activity: Not on file Stress: Not on file Social Connections: Not on file Intimate Partner Violence: Not on file Housing Stability: Low Risk (11/29/2023) Received from [facility], [facility] Housing Stability Vital Sign Unable to Pay [...] issues Elie Harper DPM documented in this encounterCrossroads Regional Medical CenterTyjwlwlzxd61-10-6439 History of Present illness Narrative* Gaby Christianson [...] wrist extensors , wrist flexor , and education courses sales representative strength 5/5. LUE strength deltoid , biceps , triceps , wrist extensors , wrist flexor , and education courses sales representative strength 5/5. RLE strength iliopsoas, quadriceps, tibialis [...] reflex 0. LLE knee reflex 0. Coordination: Oosekm-se-rkld testing normal. Rapid alternating movements are normal. Gait: Steady. Utilizing walker. Review and summary of old records: EMG of the bilateral upper extremities at [facility] on 10/23/24: Bilateral median neuropathies, at or distal to the wrist, such as in carpal tunnel syndrome, which are moderate on the left and minimal on the right in degree electrically. Bilateral chronic C8 radiculopathies which are mild in degree electrically. MRI of the lumbar spine at the [facility] on 04/01/21: Posterior decompression and transpedicular [...] NP [facility] documented in this encounterCrossroads Regional Medical CenterZxlbcwheyw10-40-9050 History of Present illness Narrative* Dania Ledezmaclair [...] days. She has been going to the [facility] and getting in the pool and doing some exercises. She finished formal PT in August and her therapist mentioned to her about maybe getting a script for water therapy. She is taking Tylenol Arthritis and tramadol. She rates her pain on a scale of 1/10. Date: 11/28/2024 11:20 AM Patient: Danyelle Haskins MR#: [id number] : 1955 Age: 69 y.o. Referring Physician: [...] CATARACT W/ IMPLANT (ECCE IOL) Bilateral 2018 [facility] TREATMENT OPEN PATELLAR FX W/ INTERNAL [...] times daily October 01, 2020 10:38am 10-01-2020 [facility] ([id number]) Docusate 100 MG capsule Take 1 capsule by mouth 2 times daily. 60 capsule 0 Doxazosin 4 MG tablet Take 1 tablet by mouth daily. Folic acid 1 MG tablet Take 1 tablet by mouth daily. Fntugdfqnsb-Gtrdrcoyt-Gxe C-Mn (Glucosamine 1500 Complex) capsule Take by [...] CATARACT W/ IMPLANT (ECCE IOL) Bilateral 2018 [facility] TREATMENT OPEN PATELLAR FX W/ INTERNAL [...] times daily October 01, 2020 10:38am 10-01-2020 [facility] ([id number]), Disp: , Rfl: Doxazosin 4 MG tablet, Take 1 tablet by mouth daily., Disp: , Rfl: Folic acid 1 MG tablet, Take 1 tablet by mouth daily., Disp: , Rfl: Iatgnvuoahi-Eeaxdviww-Gxs C-Mn (Glucosamine 1500 Complex) capsule, Take by [...] Sulfamethoxazole Weakness Trimethoprim Weakness documented in this [facility]01-09-2025 History of Present illness Narrative* Elie Harper DPM - 11/15/2024 2:40 PM EST Patient: Dnayelle Haskins : 1955 PCP: Yulisa Batres MD [...] Fibromyalgia Hemifacial spasm History of transfusion Hypertension ([facility]) Muscle spasm Osteopenia Peripheral neuropathy Polyneuropathy PVD (peripheral vascular disease) ([facility]) Radiculopathy, lumbosacral region Small fiber neuropathy Spinal stenosis excluding cervical region lumbar region, without neurogenic claudication Spondylolisthesis Trigeminal neuralgia ([facility]) Medications: Current Outpatient Medications: acetaminophen (Tylenol 8 [...] mouth in the morning., Disp: , Rfl: Shgacvprzph-Ljaxcuzar-Dtf C-Mn (Glucosamine 1500 Complex) capsule, as directed [...] Insecurity: No Food Insecurity (11/29/2023) Received from [facility], [facility] Hunger Vital Sign Worried About Running Out of Food in the Last Year: Never true Ran Out of Food in the Last Year: Never true Transportation Needs: No Transportation Needs (11/29/2023) Received from [facility], [facility] PRAPARE - Transportation Lack of Transportation (Medical): No Lack of Transportation (Non-Medical): No Physical Activity: Not on file Stress: Not on file Social Connections: Not on file Intimate Partner Violence: Not on file Housing Stability: Low Risk (11/29/2023) Received from [facility], [facility] Housing Stability Vital Sign Unable to Pay [...] Patient may continue with conservative treatments including obcx-msi-uboweqz anti- inflammatories and other treatments suggested today. Patient may want to be s cheduled for surgical intervention in the near future. Discussed left 3rd digit PIPJ arthrodesis with K-wire and postop timeframe in detail me she may consider in the future under local anesthetic Elie Harper DPM documented in this encounterCrossroads Regional Medical [id number] History of Present illness Narrative* Magalie Kaufman, [...] were sterilized with 70% isopropanol. Lot # [id number] Expiration: 01/2027 Dilution Per 100 units diluted with 1mL of 0.9% Sodium Chloride Procedure Right superior Lateral orbicularis oculi 7.5 units Right lateral orbicularis oculi 7.5 units Right inferior lateral orbicularis oculi 7.5 units Right inferior orbicularis oculi medial 2.5 units Right superior medial orbicularis oculi 2.5 units Right spa director/finance 2.5 units Right masseter 5+10+5 units Right [...] when to seek emergent treatment. Procedure Codes 83220 Chemodenervation of facial muscle J0585 Botulinum toxin a per unit, Units: Follow Up 3 months Botox documented in this encounterCrossroads Regional Medical CenterYmgygzftuw65-57-4822 Telephone encounter Note* Telephone Encounter - Sheryl Harley MA - 10/24/2024 9:02 AM EST Patient calls stating her lyrica RX was sent in with the incorrect directions. It needs to be 25mg in the morning and 25mg in the evening. RX has been fixed with correct directions. Can you please send. [facility] CenterDbmdzdpchy75-57-1761 Miscellaneous Notes* Telephone Encounter - Sheyrl Harley MA - 10/24/2024 9:02 AM EST Patient calls stating her lyrica RX was sent in with the incorrect directions. It needs to be 25mg in the morning and 25mg in the evening. RX has been fixed with correct directions. Can you please send. documented in this encounterCrossroads Regional Medical CenterKlzjqvyapa74-72-7226 History of Present illness Narrative* REGINALD Snider - 10/23/2024 10:30 AM EST Images from the original note were not included. Reason for Appointment: EMG Patient: Danyelle Haskins : 1955 EMG Computer: [employer] Referring Physician: Dr. Shante Montenegro EMG: DAVID attraction attendant: Kris Arevalo RT(R) Office Location: [place] Reason for EMG: c/o numbness/tingling in left [...] nature of the test. documented in this encounterCrossroads Regional Medical CenterYgynzehzof62-07-2837 History of Present illness Narrative* Shante Montenegro, [...] wrist extensors , wrist flexor , and education courses sales representative strength 5/5. LUE strength deltoid , biceps , triceps , wrist extensors , wrist flexor , and education courses sales representative strength 5/5. RLE strength iliopsoas, quadriceps, tibialis [...] reflex 0. LLE Knee reflex 0. Coordination: Zllpsq-fu-mnsf testing normal. Rapid alternating movements are normal. Gait: Steady. Utilizing walker. Review and summary of old records: MRI of the lumbar spine at the [facility] on 04/01/21: Posterior decompression and transpedicular [...] new or worsening symptoms. documented in this encounterCrossroads Regional Medical CenterMejbmtlowh27-94-7084 History of Present illness Narrative* Elie Harper [...] Fibromyalgia Hemifacial spasm History of transfusion Hypertension ([facility]) Muscle spasm Osteopenia Peripheral neuropathy Polyneuropathy PVD (peripheral vascular disease) ([facility]) Radiculopathy, lumbosacral region Small fiber neuropathy Spinal [...] mouth in the morning., Disp: , Rfl: Hmqsrujjkum-Qhitbeddo-Fof C-Mn (Glucosamine 1500 Complex) capsule, as directed [...] Insecurity: No Food Insecurity (11/29/2023) Received from [facility], [facility] Hunger Vital Sign Worried About Running Out of Food in the Last Year: Never true Ran Out of Food in the Last Year: Never true Transportation Needs: No Transportation Needs (11/29/2023) Received from [facility], [facility] PRAPARE - Transportation Lack of Transportation (Medical): No Lack of Transportation (Non-Medical): No Physical Activity: Not on file Stress: Not on file Social Connections: Not on file Intimate Partner Violence: Not on file Housing Stability: Low Risk (11/29/2023) Received from [facility], [facility] Housing Stability Vital Sign Unable to Pay [...] 10 Elie Harper DPM documented in this encounterCrossroads Regional Medical CenterBmgbbqrmkr30-67-2462 History of Present illness Narrative* Elie Harper [...] discussion of possible surgical intervention by her chili pepper grinder who has since retired. She states diminished [...] Fibromyalgia Hemifacial spasm History of transfusion Hypertension ([facility]) Muscle spasm Osteopenia Peripheral neuropathy Polyneuropathy PVD (peripheral vascular disease) ([facility]) Radiculopathy, lumbosacral region Small fiber neuropathy Spinal stenosis excluding cervical region lumbar region, without neurogenic claudication Spondylolisthesis Trigeminal neuralgia ([facility]) Medications: Current Outpatient Medications: acetaminophen (Tylenol 8 [...] mouth in the morning., Disp: , Rfl: Hflqiyzioij-Pcuxcvfmh-Acq C-Mn (Glucosamine 1500 Complex) capsule, as directed [...] Insecurity: No Food Insecurity (11/29/2023) Received from [facility], [facility] Hunger Vital Sign Worried About Running Out of Food in the Last Year: Never true Ran Out of Food in the Last Year: Never true Transportation Needs: No Transportation Needs (11/29/2023) Received from [facility], [facility] PRAPARE - Transportation Lack of Transportation (Medical): No Lack of Transportation (Non-Medical): No Physical Activity: Not on file Stress: Not on file Social Connections: Not on file Intimate Partner Violence: Not on file Housing Stability: Low Risk (11/29/2023) Received from [facility], [facility] Housing Stability Vital Sign Unable to [...] abx. Elie Harper DPM documented in this encounterCrossroads Regional Medical CenterFasyexbpki55-96-1007 History of Present illness Narrative* Elie Harper [...] discussion of possible surgical intervention by her chili pepper grinder who has since retired. She states diminished [...] Peripheral neuropathy Polyneuropathy PVD (peripheral vascular disease) ([facility]) Radiculopathy, lumbosacral region Small fiber neuropathy Spinal stenosis excluding cervical region lumbar region, without neurogenic claudication Spondylolisthesis Trigeminal neuralgia ([facility]) Medications: Current Outpatient Medications: acetaminophen (Tylenol 8 [...] mouth in the morning., Disp: , Rfl: Eqmarcnbqrs-Jakwwufex-Evv C-Mn (Glucosamine 1500 Complex) capsule, as directed [...] Insecurity: No Food Insecurity (11/29/2023) Received from [facility], [facility] Hunger Vital Sign Worried About Running Out of Food in the Last Year: Never true Ran Out of Food in the Last Year: Never true Transportation Needs: No Transportation Needs (11/29/2023) Received from [facility], [facility] PRAPARE - Transportation Lack of Transportation (Medical): No Lack of Transportation (Non-Medical): No Physical Activity: Not on file Stress: Not on file Social Connections: Not on file Intimate Partner Violence: Not on file Housing Stability: Low Risk (11/29/2023) Received from [facility], [facility] Housing Stability Vital Sign Unable to [...] antibiotic. Elie Harper DPM documented in this encounterCrossroads Regional Medical CenterHwzycpgwsy67-26-5030 NoteRight Eye Quality was good. Scan locations included subfoveal. Progression has been stable. Findings include normal observations. Left Eye Quality was good. Scan locations included subfoveal. Progression has been stable. Findings include normal observations. Notes Good scan with normal appearanceCrossroads Regional Medical CenterGtcsbwptux39-99-9450 NoteRight Eye Reliability was good. Progression has been stable. Foveal threshold was normal. Findings include normal observations. Left Eye Reliability was good. Progression has been stable. Foveal threshold was normal. Findings include normal observations.Crossroads Regional Medical CenterKyhwcwkwew41-15-6949 History of Present illness Narrative* Ramon Barreto, [...] above evaluations. This will be adjusted to l1ynfbmp when deemed necessary due to macular risk [...] laser capsulotomy, they are to notify their fast food supervisor promptly if they have a significant change in symptoms, such as flashes of light (photopsia), an increase in floaters, loss of visual field or decrease in visual acuity. Blepharitis of upper and lower eyelids of both eyes, unspecified type - Blepharitis, posterior type OU - The patient exhibits inspissated meibomian glands. Warm compresses, lid massage and lid scrubs were recommended. documented in this encounterCrossroads Regional Medical CenterUrcyyvozwh71-93-5241 Telephone encounter Note* Telephone Encounter - Elie Harper DPM - 07/30/2024 1:12 PM EDT done [facility] CenterIgofrygwod79-23-8819 Miscellaneous Notes* Telephone Encounter - Elie Harper DPM - 07/30/2024 1:12 PM EDT done * Telephone Encounter - [place] Ferro - 07/30/2024 1:03 PM EDT Pt called stating her ingrown toenail is still infected, asking if she can get another antibiotic? Send to [facility] in [place] please She is scheduled this in [place] documented in this encounterCrossroads Regional Medical CenterXzbkuyueba30-65-5935 Telephone encounter Note* Telephone Encounter - [place] Ferro - 07/30/2024 1:03 PM EDT Pt called stating her ingrown toenail is still infected, asking if she can get another antibiotic? Send to [facility] in [place] please She is scheduled this in [place] [facility] Medical CenterQtzncekvta15-15-6813 History of Present illness Narrative* Magalie Kaufman [...] were sterilized with 70% isopropanol. Lot # [id number] Expiration:08/2026 Dilution Per 100 units diluted with 1mL of 0.9% Sodium Chloride Procedure Right superior Lateral orbicularis oculi 7.5 units Right lateral orbicularis oculi 7.5 units Right inferior lateral orbicularis oculi 7.5 units Right inferior orbicularis oculi medial 2.5 units Right superior medial orbicularis oculi 2.5 units Right spa director/finance 2.5 units Right masseter 5+10+5 units Right [...] when to seek emergent treatment. Procedure Codes 83654 Chemodenervation of facial muscle J0585 Botulinum toxin a per unit, Units: Follow Up 3 months Botox documented in this encounterCrossroads Regional Medical CenterFprfaekmng57-35-6078 History of Present illness Narrative* Elie Harper [...] discussion of possible surgical intervention by her chili pepper grinder who has since retired. She states diminished [...] Fibromyalgia Hemifacial spasm History of transfusion Hypertension ([facility]) Muscle spasm Osteopenia Peripheral neuropathy Polyneuropathy PVD (peripheral vascular disease) ([facility]) Radiculopathy, lumbosacral region Small fiber neuropathy Spinal stenosis excluding cervical region lumbar region, without neurogenic claudication Spondylolisthesis Trigeminal neuralgia ([facility]) Medications: Current Outpatient Medications: acetaminophen (Tylenol 8 [...] mouth in the morning., Disp: , Rfl: Pkluhnetnxo-Bqmilrsbu-Oed C-Mn (Glucosamine 1500 Complex) capsule, as directed [...] Insecurity: No Food Insecurity (11/29/2023) Received from [facility], [facility] Hunger Vital Sign Worried About Running Out of Food in the Last Year: Never true Ran Out of Food in the Last Year: Never true Transportation Needs: No Transportation Needs (11/29/2023) Received from [facility], [facility] PRAPARE - Transportation Lack of Transportation (Medical): No Lack of Transportation (Non-Medical): No Physical Activity: Not on file Stress: Not on file Social Connections: Not on file Intimate Partner Violence: Not on file Housing Stability: Low Risk (11/29/2023) Received from [facility], [facility] Housing Stability Vital Sign Unable to [...] today Elie Harper DPM documented in this encounterCrossroads Regional Medical CenterSutqusjrel74-28-4632 History of Present illness Narrative* Gaby Christianson [...] rest and non weightbearing. She resided at [facility] from 12/02/2023 to 06/06/2024 for postoperative [...] Fibromyalgia Hemifacial spasm History of transfusion Hypertension ([facility]) Muscle spasm Osteopenia Peripheral neuropathy Polyneuropathy PVD (peripheral vascular disease) ([facility]) Radiculopathy, lumbosacral region Small fiber neuropathy Spinal [...] wrist extensors , wrist flexor , and education courses sales representative strength 5/5. LUE strength deltoid , biceps , triceps , wrist extensors , wrist flexor , and education courses sales representative strength 5/5. RLE strength iliopsoas, quadriceps, tibialis [...] reflex 0. LLE Knee reflex 0. Coordination: Hjjvto-so-aqge testing normal. Rapid alternating movements are normal. Gait: Steady. Utilizing walker. Review and summary of old records: MRI of the lumbar spine at the [facility] on 04/01/21: Posterior decompression and transpedicular [...] NP [facility] documented in this encounterCrossroads Regional Medical CenterErxvxhilfu60-33-6534 History of Present illness Narrative* Elie Caraballo [...] discussion of possible surgical intervention by her chili pepper grinder who has since retired. She states diminished [...] Peripheral neuropathy Polyneuropathy PVD (peripheral vascular disease) ([facility]) Radiculopathy, lumbosacral region Small fiber neuropathy Spinal [...] mouth in the morning., Disp: , Rfl: Qbetxmaejdh-Jgstfwvft-Ntu C-Mn (Glucosamine 1500 Complex) capsule, as directed [...] Insecurity: No Food Insecurity (11/29/2023) Received from [facility], [facility] Hunger Vital Sign Worried About Running Out of Food in the Last Year: Never true Ran Out of Food in the Last Year: Never true Transportation Needs: No Transportation Needs (11/29/2023) Received from [facility], [facility] PRAPARE - Transportation Lack of Transportation (Medical): No Lack of Transportation (Non-Medical): No Physical Activity: Not on file Stress: Not on file Social Connections: Not on file Intimate Partner Violence: Not on file Housing Stability: Low Risk (11/29/2023) Received from [facility], [facility] Housing Stability Vital Sign Unable to Pay [...] future Elie Harper DPM documented in this encounterCrossroads Regional Medical CenterRihkyhwxlr42-18-7336 History of Present illness Narrative* Ashok Garcia, [facility] - 05/31/2024 9:30 AM EDT Ortho Nurse [...] 05/31/2024 9:39 AM Patient: Danyelle Haskins MR#: [id number] : 1955 Age: 68 y.o. Referring Physician: [...] CATARACT W/ IMPLANT (ECCE IOL) Bilateral 2018 [facility] TREATMENT OPEN PATELLAR FX W/ INTERNAL [...] October 01, 2020 10:38am 10-01-2020 [facility] ([id number]) Docusate 100 MG capsule Take 1 capsule by mouth 2 times daily. 60 capsule 0 Doxazosin 4 MG tablet Take 1 tablet by mouth daily. Folic acid 1 MG tablet Take 1 tablet by mouth daily. Ptgoetohtfc-Wefwprbzg-Ltm C-Mn (Glucosamine 1500 Complex) capsule Take by [...] times daily October 01, 2020 10:38am 10-01-2020 [facility] ([id number]), Disp: , Rfl: Docusate 100 MG capsule, Take 1 capsule by mouth 2 times daily., Disp: 60 capsule, Rfl: 0 Doxazosin 4 MG tablet, Take 1 tablet by mouth daily., Disp: , Rfl: Folic acid 1 MG tablet, Take 1 tablet by mouth daily., Disp: , Rfl: Fadeskdgqpb-Hgafemkev-Pso C-Mn (Glucosamine 1500 Complex) capsule, Take by [...] [sulfamethoxazole-trimethoprim], levofloxacin, sulfamethoxazole, and trimethoprim. * New Mcclrue MD - 05/31/2024 9:30 AM EDT HPI: [...] CATARACT W/ IMPLANT (ECCE IOL) Bilateral 2018 [facility] TREATMENT OPEN PATELLAR FX W/ INTERNAL [...] times daily October 01, 2020 10:38am 10-01-2020 [facility] ([id number]), Disp: , Rfl: Docusate 100 MG capsule, Take 1 capsule by mouth 2 times daily., Disp: 60 capsule, Rfl: 0 Doxazosin 4 MG tablet, Take 1 tablet by mouth daily., Disp: , Rfl: Folic acid 1 MG tablet, Take 1 tablet by mouth daily., Disp: , Rfl: Yhubltoorjh-Glrtwtick-Thw C-Mn (Glucosamine 1500 Complex) capsule, Take by [...] Sulfamethoxazole Weakness Trimethoprim Weakness documented in this encounterSelect [facility]ty [facility] [place]06-13-[facility] History of Present illness Narrative* Dory Coleman - 04/19/2024 10:00 AM EDT Ortho Nurse - Established Patient Intake Room#: 2 Pt is here for B/L knee. Pt is not in any pain. No falls, or injury's. Date: 04/19/2024 10:14 AM Patient: Danyelle Haskins MR#: [id number] : 1955 Age: 68 y.o. Referring Physician: [...] CATARACT W/ IMPLANT (ECCE IOL) Bilateral 2018 [facility] TREATMENT OPEN PATELLAR FX W/ INTERNAL [...] times daily October 01, 2020 10:38am 10-01-2020 [facility] ([id number]) Docusate 100 MG capsule Take 1 capsule by mouth 2 times daily. 60 capsule 0 Doxazosin 4 MG tablet Take 1 tablet by mouth daily. Folic acid 1 MG tablet Take 1 tablet by mouth daily. Vcocrdynhwt-Vlzuscklp-Era C-Mn (Glucosamine 1500 Complex) capsule Take by [...] times daily October 01, 2020 10:38am 10-01-2020 [facility] ([id number]), Disp: , Rfl: Docusate 100 MG capsule, Take 1 capsule by mouth 2 times daily., Disp: 60 capsule, Rfl: 0 Doxazosin 4 MG tablet, Take 1 tablet by mouth daily., Disp: , Rfl: Folic acid 1 MG tablet, Take 1 tablet by mouth daily., Disp: , Rfl: Ojkyvqgjbve-Ialeussty-Klf C-Mn (Glucosamine 1500 Complex) capsule, Take by [...] HPI: Danyelle is an established patient of [facility]. She is here today for followup. She [...] CATARACT W/ IMPLANT (ECCE IOL) Bilateral 2017 [facility] TREATMENT OPEN PATELLAR FX W/ INTERNAL FIXATION OR PATELLECTOMY Left 07/18/2017 Laterality: Left; Surgeon: New Mcclure MD; Location: [facility] OR PATELLECTOMY/HEMIPATELLECTOMY Left 07/18/2017 Laterality: Left; Surgeon: New Mcculre MD; Location: [facility] OR EXCISION SKIN [...] times daily October 01, 2020 10:38am 10-01-2020 [facility] ([id number]), Disp: , Rfl: Docusate 100 MG capsule, Take 1 capsule by mouth 2 times daily., Disp: 60 capsule, Rfl: 0 Doxazosin 4 MG tablet, Take 1 tablet by mouth daily., Disp: , Rfl: Folic acid 1 MG tablet, Take 1 tablet by mouth daily., Disp: , Rfl: Vqkgqydpmnh-Dczjptprs-Uzh C-Mn (Glucosamine 1500 Complex) capsule, Take by [...] Sulfamethoxazole Weakness Trimethoprim Weakness documented in this encounterSelect Medical Specialty [facility] [place]05-16-2024 History of Present illness Narrative* Dania Ledezmaclair [...] 03/22/2024 3:49 PM Patient: Danyelle Haskins MR#: [id number] : 1955 Age: 68 y.o. Referring Physician: [...] CATARACT W/ IMPLANT (ECCE IOL) Bilateral 2018 [facility] TREATMENT OPEN PATELLAR FX W/ INTERNAL [...] October 01, 2020 10:38am 10-01-2020 [facility] ([id number]) Docusate 100 MG capsule Take 1 capsule by mouth 2 times daily. 60 capsule 0 Doxazosin 4 MG tablet Take 1 tablet by mouth daily. Folic acid 1 MG tablet Take 1 tablet by mouth daily. Vflkudnluvd-Nugbfnaau-Sfl C-Mn (Glucosamine 1500 Complex) capsule Take by [...] HPI: Danyelle is an established patient of [facility]. She is here today for followup. She [...] have reviewed the findings of the clinical technical support 1 software engineer and agree with their assessment. Ortho Nurse [...] 03/22/2024 3:49 PM Patient: Danyelle Haskins MR#: [id number] : 1955 Age: 68 y.o. Referring Physician: [...] CATARACT W/ IMPLANT (ECCE IOL) Bilateral 2018 [facility] TREATMENT OPEN PATELLAR FX W/ INTERNAL [...] October 01, 2020 10:38am 10-01-2020 [facility] ([id number]) Docusate 100 MG capsule Take 1 capsule by mouth 2 times daily. 60 capsule 0 Doxazosin 4 MG tablet Take 1 tablet by mouth daily. Folic acid 1 MG tablet Take 1 tablet by mouth daily. Gzysqigtbah-Baiievnvp-Wjk C-Mn (Glucosamine 1500 Complex) capsule Take by [...] bactrim [sulfamethoxazole-trimethoprim], and levofloxacin. documented in this encounterSelect Medical Specialty [facility] [place]04-18-2024 History of Present illness Narrative* Allison To - 02/23/2024 11:00 AM EDT Ortho Nurse - Established Patient Intake Room#: 4 Date: 02/23/2024 11:05 AM Patient: Danyelle Haskins MR#: [id number] : 1955 Age: 68 y.o. 4M L [...] CATARACT W/ IMPLANT (ECCE IOL) Bilateral 2018 [facility] TREATMENT OPEN PATELLAR FX W/ INTERNAL [...] Four times daily October 01, 2020:38am 10-01-2020 [facility] ([id number]) Docusate 100 MG capsule Take 1 capsule by mouth 2 times daily. 60 capsule 0 Doxazosin 4 MG tablet Take 1 tablet by mouth daily. Folic acid 1 MG tablet Take 1 tablet by mouth daily. Btvjwuohfhm-Ptfprrkst-Jwc C-Mn (Glucosamine 1500 Complex) capsule Take by [...] times daily October 01, 2020 10:38am 10-01-2020 [facility] ([id number]), Disp: , Rfl: Docusate 100 MG capsule, Take 1 capsule by mouth 2 times daily., Disp: 60 capsule, Rfl: 0 Doxazosin 4 MG tablet, Take 1 tablet by mouth daily., Disp: , Rfl: Folic acid 1 MG tablet, Take 1 tablet by mouth daily., Disp: , Rfl: Dccmudunrrz-Qxbznwprq-Fzp C-Mn (Glucosamine 1500 Complex) capsule, Take by [...] bactrim [sulfamethoxazole-trimethoprim], and levofloxacin. * Rajinder Green APRN-FLOW MACHINE OPERATOR - 02/23/2024 11:00 AM EDT SUBJECTIVE: Danyelle is an established patient of [facility]. She is here today for followup. She [...] up in 4 weeks, sooner as needed. (DOC:[id number]) I have reviewed the findings of the clinical technical support 1 software engineer and agree with their assessment. Rajinder Green APRN-MARTY Ortho Nurse - Established Patient Intake Room#: 4 Date: 02/23/2024 11:05 AM Patient: Danyelle Haskins MR#: [id number] : 1955 Age: 68 y.o. 4M L [...] CATARACT W/ IMPLANT (ECCE IOL) Bilateral 2017 [facility] TREATMENT OPEN PATELLAR FX W/ INTERNAL [...] times daily October 01, 2020 10:38am 10-01-2020 [facility] ([id number]) Docusate 100 MG capsule Take 1 capsule by mouth 2 times daily. 60 capsule 0 Doxazosin 4 MG tablet Take 1 tablet by mouth daily. Folic acid 1 MG tablet Take 1 tablet by mouth daily. Wkazvngutju-Ieatcqsuv-Opr C-Mn (Glucosamine 1500 Complex) capsule Take by [...] times daily October 01, 2020 10:38am 10-01-2020 [facility] ([id number]), Disp: , Rfl: Docusate 100 MG capsule, Take 1 capsule by mouth 2 times daily., Disp: 60 capsule, Rfl: 0 Doxazosin 4 MG tablet, Take 1 tablet by mouth daily., Disp: , Rfl: Folic acid 1 MG tablet, Take 1 tablet by mouth daily., Disp: , Rfl: Bamsgoietqa-Iidkxyzgi-Ahe C-Mn (Glucosamine 1500 Complex) capsule, Take by [...] bactrim [sulfamethoxazole-trimethoprim], and levofloxacin. documented in this encounterSelect Medical Specialty [facility] [place]03-07-2024 History of Present illness Narrative* Denise Michelle - 01/12/2024 1:00 PM EST Ortho Nurse - Established Patient Intake Room#: 1 ----follow-up from call from senior care on 12.30.23 that she fractured her patella. [...] 01/12/2024 1:03 PM Patient: Danyelle Haskins MR#: [id number] : 1955 Age: 68 y.o. Referring Physician: [...] CATARACT W/ IMPLANT (ECCE IOL) Bilateral 2018 [facility] TREATMENT OPEN PATELLAR FX W/ INTERNAL [...] times daily October 01, 2020 10:38am 10-01-2020 [facility] ([id number]) Docusate 100 MG capsule Take 1 capsule by mouth 2 times daily. 60 capsule 0 Doxazosin 4 MG tablet Take 1 tablet by mouth daily. Folic acid 1 MG tablet Take 1 tablet by mouth daily. Pfgtrlblhei-Oveykxvcr-Viu C-Mn (Glucosamine 1500 Complex) capsule Take by [...] 04/26/23. My office received a call from [facility] on 12/30/23 stating patient suffered a fall [...] have reviewed the findings of the clinical technical support 1 software engineer and agree with their assessment. Ortho Nurse - Established Patient Intake Room#: 1 ----follow-up from call from senior care on 12.30.23 that she fractured her patella. [...] 01/12/2024 1:03 PM Patient: Danyelle Haskins MR#: [id number] : 1955 Age: 68 y.o. Referring Physician: [...] CATARACT W/ IMPLANT (ECCE IOL) Bilateral 2018 [facility] TREATMENT OPEN PATELLAR FX W/ INTERNAL FIXATION OR PATELLECTOMY Left 07/18/2017 Laterality: Left; Surgeon: New Mccluer MD; Location: [facility] OR PATELLECTOMY/HEMIPATELLECTOMY Left [...] October 01, 2020 10:38am 10-01-2020 [facility] ([id number]) Docusate 100 MG capsule Take 1 capsule by mouth 2 times daily. 60 capsule 0 Doxazosin 4 MG tablet Take 1 tablet by mouth daily. Folic acid 1 MG tablet Take 1 tablet by mouth daily. Qygptbgnify-Aorzrrfxc-Czd C-Mn (Glucosamine 1500 Complex) capsule Take by [...] bactrim [sulfamethoxazole-trimethoprim], and levofloxacin. documented in this encounterSelect Medical [facility]ty [facility] [place]12-28-2023 History of Present illness Narrative* Shayla Garza [...] TRANSFUSION/REACTION Yes, no adverse reaction. CULTURAL OR ZOROASTRIAN BELIEFS THAT WILL AFFECT CARE no DIETARY [...] gait steady with walker. documented in this [facility]12-28-2023 Instructions* Patient Instructions* Everton Ball RN - 11/03/2023 10:[address] Mcclure's office will call you for your arrival time, 1-2 business days before your scheduled surgery. Please review your surgery checklist and bring your guide or booklet the day of surgery. Pre-Admission Testing Dept. [phone] Call if you have any changes in [...] hospital. DIRECTIONS: Park in the front main [facility] facing [address]. Enter through the front entrance [...] Yellow - take the day of surgery [place] - hold according to the doctor's instructions [...] times daily October 01, 2020 10:38am 10-01-2020 [facility] ([id number]) STOP 7 DAYS BEFORE YOUR SURGERY LAST DOSE: DATE TIME Doxazosin 4 MG tablet 4 mg, Oral, DAILY STOP TAKING 24 hours BEFORE YOUR SURGERY Last Dose: Date Time Folic acid 1 MG tablet 1,000 mcg, Oral, DAILY CONTINUE, but DO NOT take the morning of surgery. Last Dose: Date Time Dzdzxeiulsj-Vhydnjeaf-Nyh C-Mn (Glucosamine 1500 Complex) capsule Oral, DAILY [...] Last Dose: Date Time documented in this [facility]12-28-2023 Miscellaneous Notes* Addendum Note - Everton Ball RN - 11/03/2023 10:00 AM ESTAddended by: EVERTON BALL on: 10/27/2023 10:19 AM Modules accepted: Orders * Addendum Note - Everton Ball RN - 11/03/2023 10:00 AM ESTAddended by: EVERTON BALL on: 11/01/2023 01:36 PM Modules accepted: Orders documented in this encounterSelect [facility] [place]12-28-2023 Note* Addendum Note - Everton Ball RN - 11/03/2023 10:00 AM ESTAddended by: EVERTON BALL on: 10/27/2023 10:19 AM Modules accepted: Orders [facility]12-28-2023 Note* Addendum Note - Everton Ball RN - 11/03/2023 10:00 AM ESTAddended by: EVERTON BALL on: 11/01/2023 01:36 PM Modules accepted: Orders [facility]10-26-2023 History of Present illness Narrative* Denise Michelle [...] 09/01/2023 1:06 PM Patient: Danyelle Haskins MR#: [id number] : 1955 Age: 68 y.o. Referring Physician: [...] CATARACT W/ IMPLANT (ECCE IOL) Bilateral 2018 [facility] TREATMENT OPEN PATELLAR FX W/ INTERNAL [...] times daily October 01, 2020 10:38am 10-01-2020 [facility] ([id number]) Doxazosin 4 MG tablet Take 1 tablet [...] today to further discuss surgicalinterventions for optimal [facility] management. 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 We have discussed in great detail [...] have reviewed the findings of the clinical technical support 1 software engineer and agree with their assessment. Ortho Nurse - Established Patient Intake Room#: 1 ----- 4 month f\u R TKR and is doing great. Also concerned about left knee and that it keeps slipping out of place. No pain with the knee just instability and would like it looked at again. Date: 09/01/2023 1:06 PM Patient: Danyelle Haskins MR#: [id number] : 1955 Age: 68 y.o. Referring Physician: [...] CATARACT W/ IMPLANT (ECCE IOL) Bilateral 2018 [facility] TREATMENT OPEN PATELLAR FX W/ INTERNAL [...] times daily October 01, 2020 10:38am 10-01-2020 [facility] ([id number]) Doxazosin 4 MG tablet Take 1 tablet [...] bactrim [sulfamethoxazole-trimethoprim], and levofloxacin. documented in this [facility]07-13-2023 History of Present illness Narrative* Marcie Lantigua LPN - 05/19/2023 2:40 PM EDT Ortho Nurse - Established Patient Intake Room#: 5 Date: 05/19/2023 2:43 PM Patient: Danyelle Haskins MR#: [id number] : 1955 Age: 67 y.o. 3 wks [...] CATARACT W/ IMPLANT (ECCE IOL) Bilateral 2018 [facility] TREATMENT OPEN PATELLAR FX W/ INTERNAL [...] times daily October 01, 2020 10:38am 10-01-2020 [facility] ([id number]) Docusate 100 MG capsule Take 1 capsule [...] October 01, 2020 10:38am 10-01-2020 [facility] ([id number]), Disp: , Rfl: Docusate 100 MG capsule, [...] bactrim [sulfamethoxazole-trimethoprim], and levofloxacin. * Rajinder Green APRN-FLOW MACHINE OPERATOR - 05/19/2023 2:40 PM EDT HPI: Danyelle [...] mesh. All pertinent portions of the clinical technical support 1 software engineer documentation was reviewed and agree. EFREN Logan Ortho Nurse - Established Patient Intake Room#: 5 Date: 05/19/2023 2:43 PM Patient: Danyelle Haskins MR#: [id number] : 1955 Age: 67 y.o. 3 wks [...] CATARACT W/ IMPLANT (ECCE IOL) Bilateral 2018 [facility] TREATMENT OPEN PATELLAR FX W/ INTERNAL [...] October 01, 2020 10:38am 10-01-2020 [facility] ([id number]) Docusate 100 MG capsule Take 1 capsule [...] October 01, 2020 10:38am 10-01-2020 [facility] ([id number]), Disp: , Rfl: Docusate 100 MG capsule, [...] bactrim [sulfamethoxazole-trimethoprim], and levofloxacin. documented in this [facility]10-25-2021 Evaluation note* Encounter Date Diagnosis Assessment Notes [...] management and focal injections would be appropriate. [employer] Other 05-10-2021 Note [id number]:[id number] 03-12-2021 NoteCystoscopy with Urethral Dilation ? Voiding [...] if you have a fever over 100 degrees[facility] History of Present illness Narrative* [place] [...] have reviewed the findings of the clinical technical support 1 software engineer and agree with their assessment. Ortho Nurse Established Patient Intake Room#: 3 F/U from PT, seen 11-19-20, left knee TKA 11-21-18 with extensor mechanism repair, states her pain is a 2 and she is doing much better Date: 03/11/2021 1:59 PM Patient: Danyelle Haskins MR#: [id number] : 1955 Age: 65 y.o. Referring Physician: [...] CATARACT W/ IMPLANT (ECCE IOL) Bilateral 2018 [facility] TREATMENT OPEN PATELLAR FX W/ INTERNAL [...] mouth 3 times daily as needed. Biotin 47323 MCG Tab take 2 tablets by mouth 2 times daily.. Calcium Carb-Cholecalciferol (CALCIUM 600 + D) 600-200 MG-UNIT Tab tablet Take 2.5 tablets by mouthDaily (with lunch). Diclofenac Sodium 1 % Gel gel Diclofenac Diclofenac Sodium Active 4 GM Topical Four times daily October 01, 2020 10:38am 10-01-2020 [facility] ([id number]) ferrous sulfate 325 (65 Fe) MG Tab [...] as needed. , Disp: , Rfl: Biotin 03733 MCG Tab, take 2 tablets by mouth 2 times daily.. , Disp: , Rfl: Calcium Carb-Cholecalciferol (CALCIUM 600 + D) 600-200 MG-UNIT Tab tablet, Take 2.5 tablets by mouth Daily (with lunch). , Disp: , Rfl: Diclofenac Sodium 1 % Gel gel, Diclofenac Diclofenac Sodium Active 4 GM Topical Four times daily October 01, 2020 10:38am 10-01-2020 [facility] ([id number]), Disp: , Rfl: ferrous sulfate 325 (65 [...] 03/11/2021 1:59 PM Patient: Danyelle Haskins MR#: [id number] : 1955 Age: 65 y.o. Referring Physician: [...] CATARACT W/ IMPLANT (ECCE IOL) Bilateral 2017 [facility] TREATMENT OPEN PATELLAR FX W/ INTERNAL [...] mouth 3 times daily as needed. Biotin 29652 MCG Tab take 2 tablets by mouth 2 times daily.. Calcium Carb-Cholecalciferol (CALCIUM 600 + D) 600-200 MG-UNIT Tab tablet Take 2.5 tablets by mouthDaily (with lunch). Diclofenac Sodium 1 % Gel gel Diclofenac Diclofenac Sodium Active 4 GM Topical Four times daily October 01, 2020 10:38am 10-01-2020 [facility] ([id number]) ferrous sulfate 325 (65 Fe) MG Tab [...] as needed. , Disp: , Rfl: Biotin 02704 MCG Tab, take 2 tablets by mouth 2 times daily.. , Disp: , Rfl: Calcium Carb-Cholecalciferol (CALCIUM 600 + D) 600-200 MG-UNIT Tab tablet, Take 2.5 tablets by mouth Daily (with lunch). , Disp: , Rfl: Diclofenac Sodium 1 % Gel gel, Diclofenac Diclofenac Sodium Active 4 GM Topical Four times daily October 01, 2020 10:38am 10-01-2020 [facility] ([id number]), Disp: , Rfl: ferrous sulfate 325 (65 [...] oxcarbazepine; and bactrim [sulfamethoxazole-trimethoprim]. [facility] Diagnosis Left knee pain, unspecified chronicity- Primary Right knee pain, unspecified chronicity [facility]* Diagnosis Hx of total knee arthroplasty, right- Primary documented [facility] this [facility] noteNo assessment information availableKn[facility] Work Phone: Evaluation note* Diagnosis Hx of total knee arthroplasty, right- Primary Hx of total knee arthroplasty, left [facility]* Diagnosis Preop testing- Primary Preoperative examination, unspecified Abnormal finding of blood chemistry, unspecified Abnormal coagulation profile Failed total left knee replacement, initial encounter [facility] this [facility]* Diagnosis Pain in right knee Pain in joint, lower leg [facility] Right knee pain, unspecified chronicity- Primary [facility]* Diagnosis Hx of total knee arthroplasty, left- Primary documented in this encounter [facility]* Diagnosis Pain in both knees, unspecified chronicity- Primary documented in this encounter [facility]* Diagnosis Pain in both knees, unspecified chronicity- Primary documented in this encounter [facility]* Diagnosis Pain in both knees, unspecified chronicity- Primary documented in this encounter [facility]* Diagnosis Abscess of toe, right- Primary Acquired deformity of left toe documented in this encounter [facility]* Diagnosis Pain due to onychomycosis of toenails of both feet- Primary Acquired deformity of left toe documented in this encounter [facility]Evaluation note* Diagnosis Polyneuropathy- Primary Unspecified hereditary and idiopathic peripheral neuropathy Spinal stenosis of lumbar region, unspecified whether neurogenic claudication present Degenerative disc disease, lumbar documented in this encounter [facility] HealthcareEvaluation note* Diagnosis Spinal stenosis of lumbar region, unspecified whether neurogenic claudication present- Primary Degenerative disc disease, lumbar Facet arthritis of lumbar region Blepharospasm Polyneuropathy Unspecified hereditary and idiopathic peripheral neuropathy Paresthesias Disturbance of skin sensation documented in this encounter [facility] note* Diagnosis Paresthesias- Primary Disturbance of [...] Toe pain, bilateral documented in this encounter [facility] HealthcareEvaluation note* Diagnosis Spinal stenosis of lumbar region, unspecified whether neurogenic claudication present- Primary Paresthesias Disturbance of skin sensation documented in this encounter [facility] HealthcareEvaluation note* Diagnosis Onychocryptosis- Primary Ingrowing nail Toe pain, right Pain in soft tissues of limb Abscess of toe, right documented in this encounter [facility] HealthcareEvaluation note* Diagnosis 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 documented in this encounter [facility] HealthcareEvaluation note* Diagnosis Abscess of toe, right Onychocryptosis- Primary Ingrowing nail Toe pain, right Pain in soft tissues of limb Abscess of toe, right Acquired deformity of left toe documented in this encounter [facility] HealthcareEvaluation note* Diagnosis Long-term use of hydroxychloroquine- [...] of left toe documented in this encounter [facility] HealthcareEvaluation note* Diagnosis Onychocryptosis- Primary Ingrowing nail Toe pain, right Pain in soft tissues of limb Abscess of toe, right Acquired deformity of left toe documented in this encounter [facility] HealthcareEvaluation note* Diagnosis Acquired deformity of left toe- Primary Pain due to onychomycosis of toenails of both feet documented in this encounter [facility] HealthcareEvaluation note* Diagnosis Pain in left knee- [...] knee arthroplasty, right documented in this encounter [facility]* Diagnosis Spinal stenosis of lumbar region, unspecified whether neurogenic claudication present- Primary Degeneration of intervertebral disc of lumbar region with discogenic back pain Facet arthritis of lumbar region Blepharospasm Polyneuropathy Unspecified hereditary and idiopathic peripheral neuropathy Carpal tunnel syndrome on both sides Carpal tunnel syndrome documented in this encounter [facility] HealthcareEvaluation note* Diagnosis Cellulitis of left foot- Primary Acquired deformity of left toe documented in this encounter [facility] HealthcareEvaluation note* Diagnosis Cellulitis of left foot- Primary Acquired deformity of left toe Foot ulcer, left, with fat layer exposed (CMS/HCC) Other polyneuropathy documented in this encounter [facility] HealthcareEvaluation note* Diagnosis Cellulitis of left foot- Primary Acquired deformity of left toe Foot ulcer, left, with fat layer exposed (CMS/HCC) Other polyneuropathy documented in this encounter [facility] HealthcareEvaluation note* Diagnosis Paresthesias Disturbance of skin sensation Spinal stenosis of lumbar region, unspecified whether neurogenic claudication present documented in this encounter [facility] HealthcareEvaluation note* Diagnosis Acquired deformity of left toe- Primary Other polyneuropathy documented in this encounter [facility] HealthcareEvaluation note* Diagnosis Acquired deformity of left toe- Primary Other polyneuropathy documented in this encounter [facility] HealthcareEvaluation note* Diagnosis Paresthesias Disturbance of skin sensation Spinal stenosis of lumbar region, unspecified whether neurogenic claudication present documented in this encounter [facility] HealthcareEvaluation note* Diagnosis Pain due to onychomycosis of toenails of both feet- Primary documented in this encounter [facility] HealthcareEvaluation note* Diagnosis Onset Date Resolution Status Admit Date Blepharospasm chronic May 01, 2025 9:33am Carpal tunnel syndrome, bilateral chronic May 01, 2025 9:33am DDD (degenerative disc disea se), lumbar chronic May 01, 2025 9:33am Facet arthritis of lumbar region [facility] May 01, 2025 9:33am Polyneuropathy chronic May 01, 2025 9:33am Spinal stenosis of lumbar region [facility] May 01, 2025 9:33am [facility] Work Phone: Evaluation note* Diagnosis Intermediate stage nonexudative age-related macular degeneration of both eyes- Primary Long-term use of hydroxychloroquine documented in this encounter [facility] HealthcareEvaluation note* Diagnosis Pain due to onychomycosis of toenails of both feet- Primary documented in this encounter [facility] HealthcareHistory general Narrative - Reported* Type Description Date Medical History connective tissue disease Medical History Arthritis Medical History spinal compression Surgical History back surgery Surgical History ganglion cyst Surgical History tonsillectomy Surgical History hysterectomy Surgical History tendon repair Surgical History wrist surgery Surgical History cataracts, bilaterally Surgical History Abdominal Ablation Hospitalization History see surgical hx [employer] Other Reason for referral (narrative)* Consultation (Routine) - Patient to Arrange Specialty Diagnoses / Procedures Referred By Turner t Referred To Contact Physical Therapy Diagnoses Pain in both knees, unspecified chronicity Foster, New, MD [address] [place] [address] Referral ID Status Reason Start Date Expiration Date V isits Requested Visits Authorized [id number] Patient to Arrange 05/31/2024 06/25/2025 1 1 Scheduling Instructions . [facility]No reason for referral information availableOhio [facility] Work Phone: Summary Purpose Family History [...] Documents on File Type Date Recorded Patient Insulation Manager Expl anation Advance Directives/Living Will 11/21/2018 8:22 AM Advance Directives/Living Will 11/21/2018 8:26 AM Latest Code Status on File Code Status Date Activated Date Inactivated Comments Full Code 11/21/2018 2:46 PM Full Code 07/18/2017 4:04 PM 07/21/2017 7:25 PM Documents on File Type Date Recorded Patient Insulation Manager Expl anation Advance Directives/Living Will 11/21/2018 [...] exam Procedures ECG New Mcclure MD [address] [place] [address] Status Reason Specialty Diagnoses / Procedures Referred By Contact Referred To Contact New Request Procedures ACTIVITY TOLERATED Rajinder Green APRN-CNP [address] [place] [id number] Status Reason Specialty Diagnoses / Procedures Referre d By Contact Referred To Contact Rajinder Green APRN-CNP [address] [place] [id number] Status Reason Specialty Diagnoses / Procedures Referred By Contact Referred To Contact New Request Diagnoses Hx of total knee arthroplasty, left Procedures XR KNEE LEFT 2 VIEWS XR KNEE LEFT 3 VIEWS Rajinder Green, MECHANICAL FACILITIES TECHNICIAN-MARTY [address] [place], [place] [id number] Status Reason Specialty Diagnoses / Procedures Referred By Contact Referred To Contact New Request Physical Therapy Diagnoses History of total knee arthroplasty, left Right hip pain New Mcclure MD [address] [place], [place] [id number] Scheduling Instructions . Status Reason Specialty Diagnoses / Procedures Referred By Contact Referred To Contact Schedule Outgoing - Transfer of Care Physical Therapy Diagnoses History of total knee arthroplasty, left New Mcclure MD [address] [place], [place] [id number] Status Reason Specialty Diagnoses / Procedures Referred By Contact Referred To Contact New Request Diagnoses Right hip pain Procedures XR HIP WITH PELVIS RIGHT New Mcclure MD [address] [place], [place] [id number] Status Reason Specialty Diagnoses / Procedures Referred By Contact Referred To Contact New Request Sports Ortho and Primary Care Sports Diagnoses Right hip pain New Mcclure MD [address] [place], [place] [address] Status Reason Specialty Diagnoses / Procedures Referred By Contact Referred To Contact New Request Diagnoses Right knee pain, unspecified chronicity Procedures LARGE JOINT INJECTION: R knee New Mcclure MD [address] [place], [place] [address] Status Reason Specialty Diagnoses / Procedures Referred By Contact Referred To Contact New Request Diagnoses Left knee pain, unspecified chronicity Procedures XR KNEE LEFT 2 VIEWS XR KNEE LEFT 3 VIEWS New Mcclure MD [address] [place], [place] [address] Status Reason Specialty Diagnoses / Procedures Referred By Contact Referred To Contact Pending Review Diagnoses History of total knee arthroplasty, left Procedures XR KNEE LEFT 3 VIEWS New Mcclure MD [address] [place], [place] [address] Status Reason Specialty Diagnoses / Procedures Referred By Contact Referred To Contact Patient to Arrange Physical Therapy Diagnoses Pain in prosthetic joint, initial encounter New Mcclure MD [address] [place] [phone] Status Reason Specialty Diagnoses / Procedures Referred By Contact Referred To Contact New Request Diagnoses Hx of total knee arthroplasty, left Procedures XR KNEE LEFT 3 VIEWS New Mcclure MD [address] [place] [address] 139[address] Status Reason Specialty Diagnoses / Procedures Referred By Contact Referred To Contact Patient to Arrange Physical Therapy Diagnoses History of total knee arthroplasty, left New Mcclure MD [address] [place], [place] [id number] Specialty Diagnoses / Procedures Referred By Contac t Referred To Contact Diagnoses Hx of total knee arthroplasty, right Procedures XR KNEE RIGHT 3 VIEWS Rajinder Green, MECHANICAL FACILITIES TECHNICIAN-FLOW MACHINE OPERATOR [address] [place], [place] [address] Referral ID Status Reason Start Date Expiration Date V isits Requested Visits Authorized [id number] New Request 05/11/2023 06/04/2024 1 1 Specialty Diagnoses / Procedures Referred By Contac t Referred To Contact Diagnoses Hx of total knee arthroplasty, right Procedures XR BONE LENGTH STUDY New Mcclure MD [address] [place] [phone] Referral ID Status Reason Start Date Expiration Date V isits Requested Visits Authorized [id number] New Request 08/30/2023 09/23/2024 1 1 Specialty Diagnoses / Procedures Referred By Contac t Referred To Contact Diagnoses Hx of total knee arthroplasty, right Procedures XR KNEE RIGHT 3 VIEWS New Mcclure MD [address] [place] [id number] Referral ID Status Reason Start Date Expiration Date V isits Requested Visits Authorized [id number] New Request 08/30/2023 09/23/2024 1 1 Specialty Diagnoses / Procedures Referred By Contac t Referred To Contact Diagnoses Hx of total knee arthroplasty, left Procedures XR KNEE LEFT 3 VIEWS New Mcclure MD [address] [place] [address] Referral ID Status Reason Start Date Expiration Date V isits Requested Visits Authorized [id number] New Request 08/30/2023 09/23/2024 1 1 Specialty Diagnoses / Procedures Referred By Contac t Referred To Contact Diagnoses Preop testing Procedures PREPARE TO TRANSFUSE RED BLOOD CELLS New Mcclure MD [address] [place] [phone] Referral ID Status Reason Start Date Expiration Date V isits Requested Visits Authorized [id number] New Request 11/01/2023 11/25/2024 1 1 Specialty Diagnoses / Procedures Referred By Contac t Referred To Contact Diagnoses Preop testing Procedures ECG New Mcclure MD [address] [place] [id number] Referral ID Status Reason Start Date Expiration Date V isits Requested Visits Authorized [id number] New Request 10/27/2023 11/20/2024 1 1 Specialty Diagnoses / Procedures Referred By Contac t Referred To Contact Diagnoses Right knee pain, unspecified chronicity Procedures XR KNEE RIGHT 3 VIEWS New Mcclure MD [address] [place] [phone] Referral ID Status Reason Start Date Expiration Date V isits Requested Visits Authorized [id number] New Request 01/09/2024 02/02/2025 1 1 Specialty Diagnoses / Procedures Referred By Contac t Referred To Contact Diagnoses Hx of total knee arthroplasty, left Procedures XR KNEE LEFT 1-2 VIEWS XR KNEE LEFT 3 VIEWS Rajinder Green, MECHANICAL FACILITIES TECHNICIAN-FLOW MACHINE OPERATOR [address] [place] [phone] Referral ID Status Reason Start Date Expiration Date V isits Requested Visits Authorized [id number] New Request 02/21/2024 03/17/2025 1 1 Specialty Diagnoses / Procedures Referred By Contac t Referred To Contact Diagnoses Hx of total knee arthroplasty, left Procedures XR BONE LENGTH STUDY Rajinder Green, MECHANICAL FACILITIES TECHNICIAN-FLOW MACHINE OPERATOR [address] [place] [id number] Referral ID Status Reason Start Date Expiration Date V isits Requested Visits Authorized [id number] New Request 02/21/2024 03/17/2025 1 1 Specialty Diagnoses / Procedures Referred By Contac t Referred To Contact Diagnoses Polyneuropathy Spinal stenosis of lumbar region, unspecified whether neurogenic claudication present Degenerative disc disease, lumbar Sammy Gaby, RACECOURSE BARRIER ATTENDANT [address] [facility] [address] [place] [phone] Referral ID Status Reason Start Date Expiration Date V isits Requested Visits Authorized [id number] Pending Review 2024 01/15/2025 1 1 Specialty Diagnoses / Procedures Referred By Contac t Referred To Contact Physical Therapy Diagnoses Hx of total knee arthroplasty, left Hx of total knee arthroplasty, right New Mcclure MD [address] [place] [phone] Referral ID Status Reason Start Date Expiration Date V isits Requested Visits Authorized [id number] New Request 11/28/2024 12/23/2025 1 1 Specialty Diagnoses / Procedures Referred By Contac t Referred To Contact Diagnoses Hx of total knee arthroplasty, right Procedures XR KNEE RIGHT 1-2 VIEWS XR KNEE RIGHT 3 VIEWS New Mcclure MD [address] [place] [phone] Referral ID Status Reason Start Date Expiration Date V isits Requested Visits Authorized [id number] New Request 11/26/2024 12/21/2025 1 1 Referral ID Status Reason Start Date Expiration Date V isits Requested Visits Authorized [id number] New Request 11/26/2024 12/21/2025 1 1 Instructions [...] the day of surgery. Pre-Admission Testing Dept. [phone] Call if you have any changes in [...] of surgery LAST DOSE: DATE TIME Biotin 78496 MCG Tab take 2 tablets by mouth [...] LAST DOSE: DATE TIME Hydroxychloroquine Sulfate (HYDROXYCHLOROQUINE, [id number],) 200 MG Tab Take 200 mg by [...] Patient reports feeling ready to go to [facility] later today Cognitive Status Examination Orientation Status [...] reach Communication Patient to discharge to [facility] later today Transfer Skill: Sit To Stand, Rehab Eval [place] (Sit-Stand Transfers) supervision Physical Assist/Nonphysical Assist: Sit/Stand 1 person assist Weight-Bearing Restrictions: Sit/Stand toe touch weight-bearing Assistive Device For Transfer: Sit/Stand 2 wheeled walker Gait Skills, PT Eval Level of Bleck[place]: Gait stand-by assist Weight-Bearing Restrictions: Gait toe touch weight-bearing Assistive Device For Transfer: Gait 2 wheeled walker Gait Distance other (see comments) (60 ft) Gait Analysis, PT Eval Gait Pattern Used swing-to gait Stair Negotiation Level of Bleck[place]: Stair Negotiation unable to perform Clinical Impression [...] Transition of Care PATIENT: Danyelle Haskins Room/Bed: [facility] Apixaban (Eliquis) Education Patient was [...] should be reported to their physicianor health primary care nurse practitioner as soon as possible. I also advised the patient to provide an updated medication list to all health body care manager as certain medications can interact with apixaban. Patient verbally acknowledged an understanding of the information provided. Please contact pharmacyif there are any questions. Signed: Maryam Zapata RP,PharmD, [facility] Phone: [phone] Date/Time: 11/24/2018 1:26 PM * Krystal Bravo, [...] UE exercises Therapist Information License # [id number] * Tanvi Hernandez, FLOW MACHINE OPERATOR - 11/23/2018 1:43 PM EST Formatting of this note may be different from the original. DAILY PROGRESS NOTE Date of Evaluation: 11/23/18 1:44 PM [facility] LOS: 2 days SUBJECTIVE: Patient seen [...] knee S/p left TKA POD#2 PT OT aids social worker discharge planning DVT prophylaxis Eliquis PT OT SS for dc planning- will likely discharge next 24-48 hours to [facility] GI/DVT prophylaxis with protonix and SCD [...] assessment and plan and agree with the FLOW MACHINE OPERATOR findings and plan of care [...] like knee brace had slid down leg. FASHION SHOW DIRECTOR began with readjusting knee brace in proper [...] Transfer Skill: Sit To Stand, Rehab Eval [place] (Sit-Stand Transfers) contact guard Physical Assist/Nonphysical Assist: Sit/Stand 1 person assist Weight-Bearing Restrictions: Sit/Stand toe touch weight-bearing Assistive Device For Transfer: Sit/Stand 2 wheeled walker Gait Skills, PT Eval Level of Bleck[place]: Gait contact guard Weight-Bearing Restrictions: Gait toe [...] device on. Impression: status post TKA ext [facility] recon PLAN: 1. PT/OT 2. DVT prophylaxis [...] Transfer Skill: Sit To Stand, Rehab Eval [place] (Sit-Stand Transfers) contact guard Physical Assist/Nonphysical Assist: Sit/Stand 1 person assist Weight-Bearing Restrictions: Sit/Stand toe touch weight-bearing (pt using NWB on L LE) Assistive Device For Transfer: Sit/Stand 2 wheeled walker Gait Skills, PT Eval Level of Bleck[place]: Gait contact guard Weight-Bearing Restrictions: Gait toe touch weight-bearing (Pt using NWB on L LE) Assistive Device For Transfer: Gait 2 wheeled walker Gait Distance (20ft, 20ft) Gait Analysis, PT Eval Gait Pattern Used swing-to gait Plan Plan for next visit Plan to continue with strengthening and transfers/gait Maintain frequency yes * Aurora Arroyo LSW - 11/22/2018 12:52 PM EST Call received from [facility] stating they can take patient anytime [...] Transfer Skill: Sit To Stand, Rehab Eval Bleckley (Sit-Stand Transfers) contact guard Physical Assist/Nonphysical Assist: Sit/Stand 1 person assist Weight-Bearing Restrictions: Sit/Stand toe touch weight-bearing (NWB on L LE) Assistive Device For Transfer: Sit/Stand 2 wheeled walker Gait Skills, PT Eval Level of Bleckley: Gait contact guard Weight-Bearing Restrictions: Gait toe touch weight-bearing (pt using NWB on L LE) Assistive Device For Transfer: Gait 2 wheeled walker Gait Distance 25 feet Gait Analysis, PT Eval Gait Pattern Used swing-to gait Plan Plan for next visit Plan to continue with strengthening, transfers/gait, and practice car transfer Maintain frequency yes * Jacey Valdez, NIURKA-FLOW MACHINE OPERATOR - 11/22/2018 10:52 AM EST Formatting of this note may be different from the original. DAILY PROGRESS NOTE Date of Evaluation: 11/22/18 10:53 AM [facility] LOS: 1 day SUBJECTIVE: Patient seen [...] knee S/p left TKA POD#1 PT OT aids social worker discharge planning DVT prophylaxis Eliquis PT OT SS for dc planning GI/DVT prophylaxis with protonix and SCD and Eliquis Associated attestation - Brady Lozoya MD - 11/22/2018 4:50 PM EST Danyelle Haskins was personally seen and examined. I agree with the examination, assessment, and plan as described below by the LAPEL PADDER BLINDSTITCH with the following additions/exceptions: Feeling well today. [...] plans; post hospital: SEE SS NOTES * ApolinaraVhe westina - 11/22/2018 8:43 AM EDMUND HDZ met with patient on this date to discuss discharge plans. Patient explained that she is currently living alone in a single story home. Patient stated that she does not have any children, but she does have family in the area that is helpful and supportive. Patient states that she is currently employed at [employer] in [place]. She stated that prior to the surgery she was completely independent and able to cook, clean and drive. Patient states that her goal upon discharge it to go to an extended care facility to get more therapy for her knee and regain her strength. Patient stated that she wanted to go to the [facility] [place] as it is close to her home. Patient reviewed and [facility] CM to make referral. CM to follow. [...] 0 Equipment Available wheeled walker;shower chair;elevated toilet seat;bean weigher;sock-aid;long-handled shoe horn;hand held shower hose Cognitive Status Examination Orientation Status (Cognition) oriented x 4 Level of Consciousness alert Able to Follow Commands (Communication) WNL Personal Safety and Judgment intact Short Term Memory intact Speaking Unit Assembler Memory intact Vision (check all that apply) Vision prescription glasses Sensory Examination Sensory Examination WFL (numbness in bilateral LE at baseline) Range of Motion (ROM) Range of Motion Examination bilateral upper extremity ROM was WFL Bed Mobility Skill: Supine to Sit, Rehab Eval Level of Bleckley: Supine/Sit stand-by assist Physical Assist/Nonphysical Assist: Supine/Sit 1 person assist Transfer Skill: Sit to Stand, Rehab Eval Level of Bleckley: Sit/Stand contact guard Physical Assist/Nonphysical Assist: Sit/Stand 1 person assist Weight-Bearing Restrictions: Sit/Stand toe touch weight-bearing Assistive Device for Transfer: Sit/Stand wheeled walker Upper Body Dressing Level of Bleckley (set up) Lower Body Dressing Level of Bleckley moderate assist (50% patients effort) Physical Assist/Nonphysical Assist 1 person assist Assistive Device bean weigher General Therapy Interventions Planned Therapy Interventions (OT [...] Impairment in Daily Activity - CH CURRENT [facility] Daily Activity Inpatient Short Form Putting [...] yes Goals Goals For Discharge discharge to [facility] Discussed risk / benefits with patient Therapist Recommendations At Discharge Recommendations OT Services recommended at Discharge Plan Plan Narrative continue with bathing, dressing and transfer training Therapist Information License # [id number] 1. Pt will complete LB dressing min assist for left LE LUZ MARINA hose management and brace 2. Pt will complete sponge bathing min assist for Left LE 3. Pt will complete toileting to bathroom commode SBA 4. Pt will complete hygiene/grooming sitting EOB set up 5. Pt will complete B UE HEP indep to improve UE strength for functional mobility * Sonw Purcell, PT - 11/21/2018 5:24 PM EST [...] Supine to Sit, Rehab Eval Level of Bleckley: Supine/Sit stand-by assist Transfer Skill: Sit To Stand, Rehab Eval Bleckley (Sit-Stand Transfers) minimum assist (75% patient effort) Weight-Bearing Restrictions: Sit/Stand toe touch weight-bearing Assistive Device For Transfer: Sit/Stand 2 wheeled walker Gait Skills, PT Eval Level of Bleckley: Gait contact guard Weight-Bearing Restrictions: Gait toe [...] swelling, and pt reports understanding. PRIOR LEVEL [facility] Basic Mobility Inpatient Short Form Turning over in bed 4 - No Assistance Sitting/standing from chair 4 - No Assistance Moving from lying on back to sitting 4 - No Assistance Moving to and from bed to chair 4 - No Assistance Walk in hospital room 4 - No Assistance Climbing 3-5 steps with a railing 4 - No Assistance [facility] Mobility Raw Score 24 [facility] Mobility Functional Limitation/Modifier 0.00% Prior Functional Impairment in Basic Mobility - CH CURRENT [facility] Basic Mobility Inpatient Short Form Turning over [...] 2 - A Lot of Assistance CURRENT [facility] Mobility Raw Score 17 CURRENT [facility] Mobility Functional Limitation/Modifier 50.57% Currently Impaired in [...] as able. Therapist Information [place] # [id number] PT Goals: 1. Pt will demonstrate understanding [...] ILLNESS: Danyelle is an established patient of [facility]. She is here today for followup. She [...] per her previous regimen prescribed by her alum operator. I will leave this up to the house physician at the [facility], where she is residing today. She [...] and concerns were addressed to her satisfaction. (DOC:[id number]) Procedures I have reviewed the findings of the clinical technical support 1 software engineer and agree with their assessment. EFREN Logan Ortho Nurse Established Patient Intake Room#: 4 Date: 12/14/2018 2:47 PM Patient: Danyelle Haskins MR#: [id number] : 1955 Age: 63 y.o. 3 wk [...] CATARACT W/ IMPLANT (ECCE IOL) Bilateral 2017 [facility] TREATMENT OPEN PATELLAR FX W/ INTERNAL [...] mouth 3 times daily as needed. Biotin 74221 MCG Tab take 2 tablets by mouth [...] as needed. , Disp: , Rfl: Biotin 53504 MCG Tab, take 2 tablets by mouth [...] 12/14/2018 2:47 PM Patient: Danyelle Haskins MR#: [id number] : 1955 Age: 63 y.o. 3 wk [...] CATARACT W/ IMPLANT (ECCE IOL) Bilateral 2017 [facility] TREATMENT OPEN PATELLAR FX W/ INTERNAL [...] mouth 3 times daily as needed. Biotin 48069 MCG Tab take 2 tablets by mouth [...] as needed. , Disp: , Rfl: Biotin 17774 MCG Tab, take 2 tablets by mouth [...] have reviewed the findings of the clinical technical support 1 software engineer and agree with their assessment. New Mcclure MD Ortho Nurse Established Patient Intake Room#: 3 Date: 03/01/2019 2:16 PM Patient: Danyelle Haskins MR#: [id number] : 1955 Age: 63 y.o. 6wk F/U [...] CATARACT W/ IMPLANT (ECCE IOL) Bilateral 2017 [facility] TREATMENT OPEN PATELLAR FX W/ INTERNAL [...] mouth 3 times daily as needed. Biotin 32226 MCG Tab take 2 tablets by mouth [...] as needed. , Disp: , Rfl: Biotin 43298 MCG Tab, take 2 tablets by mouth [...] 03/01/2019 2:16 PM Patient: Danyelle Haskins MR#: [id number] : 1955 Age: 63 y.o. 6wk F/U [...] CATARACT W/ IMPLANT (ECCE IOL) Bilateral 2018 [facility] TREATMENT OPEN PATELLAR FX W/ INTERNAL [...] mouth 3 times daily as needed. Biotin 55262 MCG Tab take 2 tablets by mouth [...] as needed. , Disp: , Rfl: Biotin 27747 MCG Tab, take 2 tablets by mouth [...] have reviewed the findings of the clinical technical support 1 software engineer and agree with their assessment. New Mcclure MD Ortho Nurse Established Patient Intake Room#: 4 F/U Right hip, feeling better, pain of 5-6 when doing steps, done with PT; Left TKA 11-21-18, last PT was yesterday, pain of 1-2 Date: 04/18/2019 4:31 PM Patient: Danyelle Haskins MR#: [id number] : 1955 Age: 63 y.o. Referring Physician: [...] CATARACT W/ IMPLANT (ECCE IOL) Bilateral 2017 [facility] TREATMENT OPEN PATELLAR FX W/ INTERNAL [...] mouth 3 times daily as needed. Biotin 87777 MCG Tab take 2 tablets by mouth [...] as needed. , Disp: , Rfl: Biotin 03062 MCG Tab, take 2 tablets by mouth [...] 04/18/2019 4:31 PM Patient: Danyelle Haskins MR#: [id number] : 1955 Age: 63 y.o. Referring Physician: [...] Pain Rating Scale) (Adult- Cognitively Intact) (04/18/19 1626) Recent Labs No results found for: CRP [...] CATARACT W/ IMPLANT (ECCE IOL) Bilateral 2017 [facility] TREATMENT OPEN PATELLAR FX W/ INTERNAL [...] mouth 3 times daily as needed. Biotin 38710 MCG Tab take 2 tablets by mouth [...] as needed. , Disp: , Rfl: Biotin 34818 MCG Tab, take 2 tablets by mouth [...] perhaps not, though she is closer towards intermediate. She has had previous extensor mechanism reconstruction [...] of the right knee, which demonstrate knee, [id number] arthritis of the lateral compartment, and multiple [...] she like to proceed with surgical revision. (DOC:[id number]) LARGE JOINT INJECTION: R knee Date/Time: 11/21/2019 [...] have reviewed the findings of the clinical technical support 1 software engineer and agree with their assessment. New Mcclure MD Ortho Nurse Established Patient Intake Room#: 3---1 year post-op check for left TKA . She has been doing well. Date: 11/21/2019 1:38 PM Patient: Danyelle Haskins MR#: [id number] : 1955 Age: 64 y.o. Referring Physician: [...] CATARACT W/ IMPLANT (ECCE IOL) Bilateral 2017 [facility] TREATMENT OPEN PATELLAR FX W/ INTERNAL [...] mouth 3 times daily as needed. Biotin 37688 MCG Tab take 2 tablets by mouth [...] 11/21/2019 1:38 PM Patient: Danyelle Haskins MR#: [id number] : 1955 Age: 64 y.o. Referring Physician: [...] CATARACT W/ IMPLANT (ECCE IOL) Bilateral 2018 [facility] TREATMENT OPEN PATELLAR FX W/ INTERNAL [...] mouth 3 times daily as needed. Biotin 34622 MCG Tab take 2 tablets by mouth [...] have reviewed the findings of the clinical technical support 1 software engineer and agree with their assessment. Ortho Nurse Established Patient Intake Room#: 2 2 year Left TKA 11-21-18, pain of 2, cannot straighten her leg and it varinder, Amoxicillin was ordered today Date: 11/19/2020 2:31 PM Patient: Danyelle Haskins MR#: [id number] : 1955 Age: 65 y.o. Referring Physician: [...] CATARACT W/ IMPLANT (ECCE IOL) Bilateral 2018 [facility] TREATMENT OPEN PATELLAR FX W/ INTERNAL [...] Take 500 mg by mouth daily. Biotin 97185 MCG Tab take 2 tablets by mouth 2 times daily.. Calcium Carb-Cholecalciferol (CALCIUM 600 + D) 600-200 MG-UNIT Tab tablet Take 2.5 tablets by mouthDaily (with lunch). Diclofenac Sodium 1 % Gel gel Diclofenac Diclofenac Sodium Active 4 GM Topical Four times daily October 01, 2020 10:38am 10-01-2020 [facility] ([id number]) ferrous sulfate 325 (65 Fe) MG Tab [...] by mouth daily., Disp: , Rfl: Biotin 10337 MCG Tab, take 2 tablets by mouth 2 times daily.. , Disp: , Rfl: Calcium Carb-Cholecalciferol (CALCIUM 600 + D) 600-200 MG-UNIT Tab tablet, Take 2.5 tablets by mouth Daily (with lunch). , Disp: , Rfl: Diclofenac Sodium 1 % Gel gel, Diclofenac Diclofenac Sodium Active 4 GM Topical Four times daily October 01, 2020 10:38am 10-01-2020 [facility] ([id number]), Disp: , Rfl: ferrous sulfate 325 (65 [...] 11/19/2020 2:31 PM Patient: Danyelle Haskins MR#: [id number] : 1955 Age: 65 y.o. Referring Physician: [...] CATARACT W/ IMPLANT (ECCE IOL) Bilateral 2017 [facility] TREATMENT OPEN PATELLAR FX W/ INTERNAL [...] Take 500 mg by mouth daily. Biotin 76449 MCG Tab take 2 tablets by mouth 2 times daily.. Calcium Carb-Cholecalciferol (CALCIUM 600 + D) 600-200 MG-UNIT Tab tablet Take 2.5 tablets by mouthDaily (with lunch). Diclofenac Sodium 1 % Gel gel Diclofenac Diclofenac Sodium Active 4 GM Topical Four times daily October 01, 2020 10:38am 10-01-2020 [facility] ([id number]) ferrous sulfate 325 (65 Fe) MG Tab [...] by mouth daily., Disp: , Rfl: Biotin 67924 MCG Tab, take 2 tablets by mouth 2 times daily.. , Disp: , Rfl: Calcium Carb-Cholecalciferol (CALCIUM 600 + D) 600-200 MG-UNIT Tab tablet, Take 2.5 tablets by mouth Daily (with lunch). , Disp: , Rfl: Diclofenac Sodium 1 % Gel gel, Diclofenac Diclofenac Sodium Active 4 GM Topical Four times daily October 01, 2020 10:38am 10-01-2020 [facility] ([id number]), Disp: , Rfl: ferrous sulfate 325 (65 [...] have reviewed the findings of the clinical technical support 1 software engineer and agree with their assessment. New Mcclure MD Ortho Nurse Established Patient Intake Room#: 3 6 week F/U left knee ext mechanism repair, no C/O pain Date: 01/03/2019 3:26 PM Patient: Danyelle Haskins MR#: [id number] : 1955 Age: 63 y.o. Referring Physician: [...] CATARACT W/ IMPLANT (ECCE IOL) Bilateral 2018 [facility] TREATMENT OPEN PATELLAR FX W/ INTERNAL [...] mouth 3 times daily as needed. Biotin 63750 MCG Tab take 2 tablets by mouth [...] as needed. , Disp: , Rfl: Biotin 73195 MCG Tab, take 2 tablets by mouth [...] 01/03/2019 3:26 PM Patient: Danyelle Haskins MR#: [id number] : 1955 Age: 63 y.o. Referring Physician: [...] CATARACT W/ IMPLANT (ECCE IOL) Bilateral 2018 [facility] TREATMENT OPEN PATELLAR FX W/ INTERNAL [...] mouth 3 times daily as needed. Biotin 48551 MCG Tab take 2 tablets by mouth [...] as needed. , Disp: , Rfl: Biotin 03634 MCG Tab, take 2 tablets by mouth [...] knee S/p left TKA POD#3 PT OT aids social worker discharge planning DVT prophylaxis Kandisquis Will dc [...] % LIQD Commonly known as: HIBICLENS hydroxychloroquine ([facility]-07680) 200 MG TABS leflunomide 20 MG TABS [...] as needed. Commonly known as: LIORESAL Biotin 60737 MCG TABS take 2 tablets by mouth [...] tolerated. Discharge Follow-up: New Mcclure MD [address] [id number] In 3 weeks Discharge Disposition: Patient will be discharged in stable condition. Discharge Time: Including assessment, planning, and medication reconciliation was greater than 35 min. Tanvi Hernandez DNP completing Discharge Summary for Dr. Vance Please note Portions of this note utilized [employer] dictation software, please excuse any typographical or [...] be removed by a nurse at the [facility] 10-14 days after surgery. Your surgery d [...] - 11/24/2018 5:16 PM EST Contact Office ([phone]) if: > Total Knee ROM < 90 [...] Care Everywhere. * Acetaminophen tablets or caplets (Kuwaiti) * Apixaban oral tablets (Kuwaiti) * Docusate capsules (Kuwaiti) * Oxycodone tablets or capsules (Kuwaiti) in this encounter Chief Complaint and Reason [...] section and content) DATE CREATED AUTHOR 05/02/2018 [facility] DATE CREATED AUTHOR AUTHOR'S ORGANIZ ATION 05/02/2018 [facility] DATE CREATED AUTHOR AUTHOR'S ORGANIZ ATION 05/05/2018 [facility] DATE CREATED AUTHOR AUTHOR'S ORGANIZ ATION 03/22/2020 [facility] DATE CREATED AUTHOR AUTHOR'S ORGANIZ ATION 02/01/2022 [facility] DATE CREATED AUTHOR AUTHOR'S ORGANIZ ATION 02/13/2023 [facility] DATE CREATED AUTHOR AUTHOR'S ORGANIZ ATION 07/09/[address] 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] New Mcclure MD [address] [place] [address] 49248 Status Reason Specialty Diagnoses / Procedures Referred By Contact Referred To Contact New Request Diagnoses Hx of total knee arthroplasty, left Procedures XR KNEE LEFT 2 VIEWS XR KNEE LEFT 3 VIEWS Rajinder Green, MECHANICAL FACILITIES TECHNICIAN-MARTY [address] [place] [address] 15992 Reason Comments Post Op Visit Reason Comments Leg Swelling Reason Comments Follow-up Post Op Visit Status Reason Specialty Diagnoses / Procedures Referred By Contact Referred To Contact New Request Diagnoses Left knee pain, unspecified chronicity Procedures XR KNEE LEFT 2 VIEWS XR KNEE LEFT 3 VIEWS New Mcclure MD [address] [place] [address] 01342 Reason Comments Follow-up Status Reason Specialty Diagnoses / Procedures Referred By Contact Referred To Contact Pending Review Diagnoses History of total knee arthroplasty, left Procedures XR KNEE LEFT 3 VIEWS New Mcclure MD [address] [place] [address] 48621 Reason Comments Post Op Visit Reason Comments Follow-up Reason Comments Skin Problem Status Reason Specialty Diagnoses / Procedures Referred By Contact Referred To Contact New Request Diagnoses Hx of total knee arthroplasty, left Procedures XR KNEE LEFT 3 VIEWS New Mcclure MD [address] [place] [address] 09071 Status Reason Specialty Diagnoses / Procedures Referred By Contact Referred To Contact New Request Diagnoses Right hip pain Procedures XR HIP WITH PELVIS RIGHT New Mcclure MD [address] [place] [address] 35485 Reason Comments Follow-up Specialty Diagnoses / Procedures Referred By Contac t Referred To Contact Diagnoses Hx of total knee arthroplasty, right Procedures XR KNEE RIGHT 3 VIEWS Rajinder Green, MECHANICAL FACILITIES TECHNICIAN-MARTY [address] [place] [address] 41821 Referral ID Status Reason Start Date Expiration Date V isits Requested Visits Authorized [id number] New Request 05/11/2023 06/04/2024 1 1 Specialty Diagnoses / Procedures Referred By Contac t Referred To Contact Diagnoses Hx of total knee arthroplasty, right Procedures XR BONE LENGTH STUDY New Mcclure MD [address] [place] [address] 24052 Referral ID Status Reason Start Date Expiration Date V isits Requested Visits Authorized [id number] New Request 08/30/2023 09/23/2024 1 1 Reason Comments Pain Reason Comments Preoperative Assessment LTKA revision w/ poss extensor mechanism reconstruction 11/29 SAF Pg *PAT ONLY Specialty Diagnoses / Procedures Referred By Contac t Referred To Contact Diagnoses Preop testing Procedures PREPARE TO TRANSFUSE RED BLOOD CELLS New Mcclure MD [address] [place] [address] 90691 Referral ID Status Reason Start Date Expiration Date V isits Requested Visits Authorized [id number] New Request 11/01/2023 11/25/2024 1 1 Specialty Diagnoses / Procedures Referred By Contac t Referred To Contact Diagnoses Hx of total knee arthroplasty, left Procedures XR KNEE LEFT 1-2 VIEWS XR KNEE LEFT 3 VIEWS Rajinder Green, MECHANICAL FACILITIES TECHNICIAN-FLOW MACHINE OPERATOR [address] [place] [address] 15075 Referral ID Status Reason Start Date Expiration Date V isits Requested Visits Authorized [id number] New Request 12/20/2023 01/13/2025 1 1 Specialty Diagnoses / Procedures Referred By Contac t Referred To Contact Diagnoses Right knee pain, unspecified chronicity Procedures XR KNEE RIGHT 3 VIEWS New Mcclure MD [address] [place] [address] 12087 Referral ID Status Reason Start Date Expiration Date V isits Requested Visits Authorized [id number] New Request 01/09/2024 02/02/2025 1 1 Reason Comments Pain Specialty Diagnoses / Procedures Referred By Contac t Referred To Contact Diagnoses Hx of total knee arthroplasty, left Procedures XR BONE LENGTH STUDY Rajinder Green, MECHANICAL FACILITIES TECHNICIAN-[address] [address] Referral ID Status Reason Start Date Expiration Date V isits Requested Visits Authorized [id number] New Request 02/21/2024 03/17/2025 1 1 Reason [...] KNEE RIGHT 3 VIEWS New Mcclure MD [address] [place] [address] [id number] Referral ID Status Reason Start Date Expiration Date V isits Requested Visits Authorized [id number] New Request 11/26/2024 12/21/2025 1 1 Reason [...] Care Teams (unrecognized sec tion and content) Fashion Stylist Relationship Specialty Start Date End Date Yulisa Batres MD [address] [facility] [place] [address] [place] [address] PCP - General Family Medicine 03/18/23 Fashion Stylist Relationship Specialty Start Date End Date Yulisa Batres MD [address] [place] [address] PCP - General Family Medicine 03/18/23 Fashion Stylist Relationship Specialty Start Date End Date Yulisa Batres MD [address] [place] [address] PCP - General Family Medicine 03/18/23 Fashion Stylist Relationship Specialty Start Date End Date Yulisa Batres MD [address] [place] [address] PCP - General Family Medicine 03/18/23 Fashion Stylist Relationship Specialty Start Date End Date Yulisa Batres MD [address] [facility] [place] [address] [place] [address] PCP - General Family Medicine 03/18/23 Fashion Stylist Relationship Specialty Start Date End Date Yulisa Batres MD [address] [facility] [place] [address] [place] [address] PCP - General Family Medicine 03/18/23 Fashion Stylist Relationship Specialty Start Date End Date Yulisa Batres MD [address] [facility] [place] [address] [place] [address] PCP - General Family Medicine 03/18/23 Fashion Stylist Relationship Specialty Start Date End Date Yulisa Batres MD [address] [facility] [place] [address] [place] [address] PCP - General Family Medicine 03/18/23 Fashion Stylist Relationship Specialty Start Date End Date Yulisa Batres MD [address] [facility] [place] [address] [place] [address] PCP - General Family Medicine 03/18/23 Fashion Stylist Relationship Specialty Start Date End Date Yulisa Batres MD [address] [facility] [place] [address] [place] [address] PCP - General Family Medicine 03/18/23 Fashion Stylist Relationship Specialty Start Date End Date Yulisa Batres MD [address] [facility] [place] [address] [place] [address] PCP - General Family Medicine 03/18/23 Fashion Stylist Relationship Specialty Start Date End Date Yulisa Batres MD [address] [facility] [place] [address] [place] [address] PCP - General Family Medicine 03/18/23 Fashion Stylist Relationship Specialty Start Date End Date Yulisa Batres MD [address] [facility] [place] [address] [place] [address] PCP - General Family Medicine 03/18/23 Fashion Stylist Relationship Specialty Start Date End Date Yulisa Batres MD [address] [facility] [place] [address] [place] [address] PCP - General Family Medicine 03/18/23 Fashion Stylist Relationship Specialty Start Date End Date Yulisa Batres MD [address] [place] [address] PCP - General 07/06/23 Gaby Christianson, HARPAL [address] [phone] Nurse Practitioner Neurology 01/26/24 Darren Monaco MD [address] [place] [phone] Referring Physician Rheumatology 07/31/24 Fashion Stylist Relationship Specialty Start Date End Date Yulisa aBtres MD [address] [place] [address] PCP - General 07/06/23 Gaby Christianson NP [address] [phone] Nurse Practitioner Neurology 01/26/24 Darren Monaco MD [address] [facility] [address] [place] [address] Referring Physician Rheumatology 07/31/24 Fashion Stylist Relationship Specialty Start Date End Date Yulisa Batres MD [address] [place] [address] PCP - General 07/06/23 Gaby Christianson NP [address] [address] Nurse Practitioner Neurology 01/26/24 Darren Monaco MD [address] Professional building 1 [place] [address] Referring Physician Rheumatology 07/31/24 Fashion Stylist Relationship Specialty Start Date End Date Yulisa Batres MD [address] [facility] [place] [address] PCP - General 07/06/23 Gaby Christianson NP [address] [phone] Nurse Practitioner Neurology 01/26/24 Fashion Stylist Relationship Specialty Start Date End Date Yulisa Batres MD [address] [facility] [place] [address] PCP - General 07/06/23 Gaby Christianson, HARPAL [address] [phone] Nurse Practitioner Neurology 01/26/24 Fashion Stylist Relationship Specialty Start Date End Date Yulisa Batres MD [address] [place] [address] PCP - General 07/06/23 Gaby Christianson, HARPAL [address] [address] Nurse Practitioner Neurology 01/26/24 Darren Monaco MD [address] [facility] Professional building 1 [place] [address] Referring Physician Rheumatology 07/31/24 Fashion Stylist Relationship Specialty Start Date End Date Yulisa Batres MD [address] [facility] [place] [address] PCP - General 07/06/23 Gaby Christianson NP [address] [phone] Nurse Practitioner Neurology 01/26/24 Darren Monaco MD [address] Professional building 1 [place] [address] Referring Physician Rheumatology 07/31/24 Fashion Stylist Relationship Specialty Start Date End Date Yulisa Batres MD [address] [place] [address] PCP - General 07/06/23 Gaby Christianson NP [address] [phone] Nurse Practitioner Neurology 01/26/24 Darren Monaco MD [address] Professional building 1 [place] [address] Referring Physician Rheumatology 07/31/24 Fashion Stylist Relationship Specialty Start Date End Date Yulisa Batres MD [address] [place] [address] PCP - General 07/06/23 Gaby Christianson NP [address] [phone] Nurse Practitioner Neurology 01/26/24 Darren Monaco MD [address] Professional building 1 [place] [address] Referring Physician Rheumatology 07/31/24 Fashion Stylist Relationship Specialty Start Date End Date Yulisa Bartes MD [address] [facility] [place] [address] PCP - General 07/06/23 Gaby Christianson NP [address] [place] [phone] Nurse Practitioner Neurology 01/26/24 Fashion Stylist Relationship Specialty Start Date End Date Yulisa Batres MD [address] [facility] [place] [address] PCP - General 07/06/23 Gaby Christianson NP [address] [place] [address] [phone] Nurse Practitioner Neurology 01/26/24 Fashion Stylist Relationship Specialty Start Date End Date Yulisa Batres MD [address] [facility] [place] [address] PCP - General 07/06/23 Gaby Christianson NP [address] [place] [address] Nurse Practitioner Neurology 01/26/24 Fashion Stylist Relationship Specialty Start Date End Date Yulisa Batres MD [address] [facility] [place] [address] PCP - General 07/06/23 Gaby Christianson NP [address] [place] [address] [phone] Nurse Practitioner Neurology 01/26/24 Fashion Stylist Relationship Specialty Start Date End Date Yulisa Batres MD [address] [facility] [place] [address] PCP - General 07/06/23 Gaby Christianson NP [address] [address] Nurse Practitioner Neurology 01/26/24 Darren Monaco MD [address] [facility] Professional building 1 [place] [address] Referring Physician Rheumatology 07/31/24 Fashion Stylist Relationship Specialty Start Date End Date Yulisa Batres MD [address] [place] [address] PCP - General 07/06/23 Gaby Christianson NP [address] [phone] Nurse Practitioner Neurology 01/26/24 Fashion Stylist Relationship Specialty Start Date End Date Yulisa Batres MD [address] [place] [address] PCP - General 07/06/23 Gaby Christianson NP [address] [phone] Nurse Practitioner Neurology 01/26/24 Darren Monaco MD [address] [facility] Professional building 1 [place] [address] Referring Physician Rheumatology 07/31/24 Fashion Stylist Relationship Specialty Start Date End Date Yulisa Batres MD [address] [place] [address] PCP - General 07/06/23 Gaby Christianson NP [address] [phone] Nurse Practitioner Neurology 01/26/24 Darren Monaco MD [address] [facility] Professional building 1 [place] [address] Referring Physician Rheumatology 07/31/24 Fashion Stylist Relationship Specialty Start Date End Date Yulisa Batres MD [address] [place] [address] PCP - General Family Medicine 03/18/23 Fashion Stylist Relationship Specialty Start Date End Date Yulisa Batres MD [address] [place] [address] PCP - General Family Medicine 03/18/23 Fashion Stylist Relationship Specialty [place] [address] [place] [address] PCP - General 07/06/23 Gaby Christianson NP [address] [phone] Nurse Practitioner Neurology 01/26/24 Darren Monaco MD [address] [facility] Professional building 1 [place] [address] Referring Physician Rheumatology 07/31/24 Fashion Stylist Relationship Specialty Start Date End Date Yulisa Batres MD [address] [place] [address] PCP - General 07/06/23 Gaby Christianson NP [address] [phone] Nurse Practitioner Neurology 01/26/24 Darren Monaco MD [address] Professional building 1 [place] [address] Referring Physician Rheumatology 07/31/24 Fashion Stylist Relationship Specialty Start Date End Date Yulisa Batres MD [address] [place] [address] PCP - General 07/06/23 Gaby Christianson NP [address] [phone] Nurse Practitioner Neurology 01/26/24 Darren Monaco MD [address] Professional building 1 [place] [address] Referring Physician Rheumatology 07/31/24 Fashion Stylist Relationship Specialty Start Date End Date Yulisa Batres MD PCP - General 07/06/23 Gaby Christianson NP [address] [phone] Nurse Practitioner Neurology 01/26/24 Darren Monaco MD [address] Professional building [address] [place] [address] Referring Physician Rheumatology 07/31/24 Fashion Stylist Relationship Specialty Start Date End Date Yulisa Batres MD PCP - General 07/06/23 Gaby Christianson NP [address] [address] Nurse Practitioner Neurology 01/26/24 Darren Monaco MD [address] Professional building 1 [place] [address] Referring Physician Rheumatology 07/31/24 Fashion Stylist Relationship Specialty Start Date End Date Yulisa Batres MD PCP - General 07/06/23 Gaby Christianson NP [address] [place] [phone] Nurse Practitioner Neurology 01/26/24 Darren Monaco MD [address] [facility] Professional building 1 [place] [address] Referring Physician Rheumatology 07/31/24 Team Status: Active Member Role Status Dates Yulisa Batres MD Primary Care Provider Active Team Status: Inactive Member Role Status Dates Yulisa Batres MD Primary Care Provider Active Start: May 01, 2025 End: May 01, 2025 Gaby Christianson APRN-JUNIOR SOFTWARE ENGINEER-C Attending Provider Active Start: May 01, 2025 End: May 01, 2025 Fashion Stylist Relationship Specialty Start Date End Date Yulisa Batres MD PCP - General 07/06/23 Gaby Christianson NP Nurse Practitioner Neurology 01/26/24 Darren Monaco MD [address] Professional building 1 [place] [address] Referring Physician Rheumatology 07/31/24 Fashion Stylist Relationship Specialty Start Date End Date Yulisa Batres MD PCP - General 07/06/23 Gaby Christianson NP Nurse Practitioner Neurology 01/26/24 Darren Monaco MD [address] Professional building 1 [place] [address] Referring Physician Rheumatology 07/31/24 Team Status: Inactive Member Role Status Dates Yulisa Batres MD Primary Care Provider Active Start: June 13, 2025 End: June 13, 2025 Magalie Kaufman DO Attending Provider Active Sta rt: June 13, 2025 End: June 13, 2025 Fashion Stylist Relationship Specialty Start Date End Date Yulisa Batres MD [address] [place] [address] PCP - General 07/06/23 Gaby Christianson NP [address] [place] [phone] Nurse Practitioner Neurology 01/26/24 Darren Monaco MD [address] [facility] [address] Professional building 1 [place] [phone] Referring Physician Rheumatology 07/31/24 Fashion Stylist Relationship Specialty Start Date End Date Yulisa Batres MD [address] [place] [address] PCP - General 07/06/23 Gaby Christianson NP [address] [place] [address] Nurse Practitioner Neurology 01/26/24 Darren Monaco MD [address] Professional building 1 [place] [address] Referring Physician Rheumatology 07/31/24 Team Status: Inactive [...] BE BASED ON THE PRIMARY CLINICAL RECORDS. [facility] [employer] [facility]. provides no warranty or guarantee of the accuracy or completeness of information in this document.
[2025-08-15 11:46] LABS: Hematocrit 34.0 % (36.0-48.0); Hemoglobin 11.5 g/dL (12.0-16.0); Immature Granulocytes Abs Auto 0.01 10^3/uL (0.00-0.03); Immature Granulocytes Pct Auto 0.3 % (0.0-0.5); Lymphocytes Absolute Auto 0.6 10^3/uL (1.2-3.8); Mean Corpuscular HGB Conc 33.8 g/dL (29.9-35.2); Mean Corpuscular Hemoglobin 34.7 pg (26.7-34.0); Mean Corpuscular Volume 102.7 fL (81.0-99.0); Platelet Count 179 10^3/uL (150-450); Red Blood Count 3.31 10^6/uL (4.20-5.40); White Blood Count 3.2 10^3/uL (4.0-11.0)
[2025-08-15 11:53] LABS: Alanine Aminotransferase 32 U/L (14-59); Albumin Globulin Ratio 1.2; Albumin Level 3.9 g/dL (3.4-5.0); Alkaline Phosphatase 50 U/L (46-116); Anion Gap 13.0; Aspartate Amino Transferase 35 U/L (15-37); Blood Urea Nitrogen 19.0 mg/dL (7.0-18.0); Calcium 9.0 mg/dL (8.5-10.1); Carbon Dioxide 28.2 mmol/L (21.0-32.0); Chloride 105 mmol/L (98-107); Estimated GFR (African America >60 (>=60 mL/min/1.73m^2); Estimated GFR (Non-African Ame >60 (>=60 mL/min/1.73m^2); Globulin 3.2 g/dL; Glucose 92 mg/dL (74-106); Potassium 4.2 mmol/L (3.5-5.1); Sodium 142 mmol/L (136-145); Total Protein 7.1 g/dL (6.4-8.2)
[2025-08-15 13:34] LABS: Glucose Urine UA NEGATIVE (NEGATIVE)
[2025-08-15 14:52] LABS: Cast Seen? NONE SEEN #/LPF (NONE SEEN); Crystals Seen? None Seen #/HPF (None Seen)
== END 2025-08-15 11:16 | disposition home or self-care (01) ==
PROVIDERS: PCP Family Medicine; Visit Provider Internal Medicine Rheumatology
DX: E55.9 Vitamin D deficiency, unspecified (principal); M06.4 Inflammatory polyarthropathy; M15.0 Primary generalized (osteo)arthritis; Z79.899 Other long term (current) drug therapy
CPT/HCPCS: 36415; 80053; 81001; 82306; 85025; 85652; 86160; 86162

== ENCOUNTER 2025-09-05 09:52 | Outpatient (OUT) | payer MEDICARE, BC, SELFPAY ==
--- OUTSIDE RECORDS SUMMARY | 2025-09-05 08:30 | XMS_ITS | Encounter Summary ---
Author Organization [facility] Address [address] [place] [address] Care Team Providers Care Vp Clinical Name Role Phone Stevie Hoyos MD Primary Care Provider [phone] Gaby Christianson NP Unavailable Unavailable Celso Delatorre MD Unavailable Reason for Visit * ReasonCommentsToenail Care Encounter Details DateTypeDepartmentCare Team (Latest Contact Info)Flrqtoqpihr91/30/2025 8:30 AM EDTProcedure Visit [facility] [address] [facility] [address] [place] [address] Elie Tello, DPKeri 3006 [facility] 5 [place] [address] Other polyneuropathy (Primary Dx); Pain due to onychomycosis of toenails of both feet Social History Tobacco UseTypesPacks/DayYears UsedDateSmoking Tobacco: NeverSmokeless Tobacco: Never Tobacco Cessation:Counseling Given: Yes Alcohol UseStandard Drinks/WeekCommentsDefer0 (1 standard drink = 0.6 oz pure alcohol)Caffeine: Current some daysCommentsUnknownSex and Gender InformationValueDate RecordedSex Assigned at PfvrzQyobfw18/24/2023 3:52 PM EDT Legal NgpFagzzl11/01/2023 8:32 PM EDTGender AbxczeocFgyits87/24/2023 3:52 PM EDT Sexual DuvdfqtegymLszcalhq52/24/2023 3:52 PM EDTdocumented as of this encounter Last Filed Vital Signs Vital SignReadingTime TakenCommentsBlood Pressure--Pulse--Temperature-- Respiratory Qshw7417 8:25 AM EDTOxygen Saturation--Inhaled Oxygen Concentration--Gkxzui424 kg (222 lb)09/05/2025 8:25 AM SJANtkdjm102.7 cm (5' 8 ) 09/05/2025 8:25 AM EDTBody Mass Index33.7509/05/2025 8:25 AM EDTdocumented in this encounter Progress Notes * Elie Tello DPM - 09/05/2025 8:30 AM EDT Patient: Daneylle Chris : 1955 PCP: Stevie Hoyos MD [...] mouth in the morning., Disp: , Rfl: Eoughjlkdza-Pjfogwjvy-Byj C-Mn (Glucosamine 1500 Complex) capsule, as directed [...] No Food Insecurity (11/29/2023) Received from [facility] Hunger Vital Sign Within the past 12 months, you worried that your food would run out before you got the money to buymore.: Never true Within the past 12 months, the food you bought just didn't last and you didn't have money to get more.: Never true Transportation Needs: No Transportation Needs (11/29/2023) Received from [facility] PRAPARE - Transportation Lack of Transportation (Medical): No Lack of Transportation (Non-Medical): No Physical Activity: Not on file Stress: Not on file Social Connections: Not on file Intimate Partner Violence: Not on file Housing Stability: Low Risk (11/29/2023) Received from [facility] Housing Stability Vital Sign Unable to Pay [...] Plan of Treatment DateTypeDepartmentCare Team (Latest Contact Info)Tnzmkrkhhwr31/22/2026 8:30 AM ESTProcedure Visit [facility] [address] [facility] [address] [place] [address] Elie Tello DPM [address] [facility] 5 [place] [address] 02/19/2026 9:00 AM EDTOffice Visit [facility] [address] [place] [address] Yo Gilmore DO [address] [place] [address] documented as of this encounter Visit Diagnoses Diagnosis Other polyneuropathy- Primary Pain due to onychomycosis of toenails of both feet documented in this encounter Care Teams Team MemberRelationshipSpecialtyStart DateEnd Stevie Hoyos MD [address] [place] [address] PCP - General07/06/23 Gaby Christianson NP [address] [place] [address] Nurse PractitionerNeurology01/26/24 Celso Delatorre MD [address] [facility] Professional building [address] [place] [address] Referring PhysicianRheumatology07/31/24documented as of this encounter
--- NOTE | 2025-09-05 09:55 | MM_ITS ---
Patient Name: YELENA HASKINS MR#: [id number] : 1955 Exam Date: 09/05/2025 Ordering Doctor: DR YULISA BATRES . RADIOLOGY REPORT PROCEDURE: MM TOMOSYNTHESIS SCREENING BI COMPARISON: MM TOMOSYNTHESIS SCREENING BI, 09/03/2024. MM TOMOSYNTHESIS SCREENING BI, 09/02/2023. MG MAMM SCREEN 3D BO CAD, 08/31/2022. MG MAMM SCREEN 3D BO CAD, 08/27/2021. INDICATIONS: screening Calculator Name NCI Breast Cancer Risk Assessment Tool 5 Year Breast Cancer Risk 2.00% Lifetime Breast Cancer Risk 5.10% Personal Breast Cancer No Personal Ovarian Cancer No Treatments None Family Cancers Father with stomach cancer at age 55; Sister with thyroid cancer at age ~50. LOCATION: [facility] BREAST COMPOSITION: There are scattered areas of fibroglandular density. FINDINGS: DIAGNOSTIC CATEGORY 1--NEGATIVE. RIGHT BREAST: No significant suspicious finding. LEFT BREAST: No significant suspicious finding. RECOMMENDATIONS: ROUTINE MAMMOGRAM AND CLINICAL EVALUATION IN 12 MONTHS. Dictated by: Clem Castellanos DO on 09/05/2025 at 15:50 Approved by: Clem Castellanos DO on 09/05/2025 at 15:51
--- OUTSIDE RECORDS SUMMARY | 2025-09-05 09:56 | XMS_ITS | Clinical Summary ---
Author Organization [facility] Address [address] [place] [address] Care Team Providers Care Warehouse Receiving Supervisor Name Role Phone Stevie Hoyos MD Primary Care Provider [phone] Allergies Active AllergyReactionsCriticalityNoted DateCommentsAlendronateAbdominal Discomfort,NhneclpvzBjkibj37/24/2018Sulfamethoxazole-TrimethoprimMyalgia 03/11/20218915YfemuhdsymcqyXsog22/18/2023 Other reaction(s): Allergy critical , tendon rupture GabapentinNausea and YofvmqzsDjyohm98/24/2018Gabapentin (Once-Daily)BlistersHigh 08/30/2018 Caused the skin on her lips to peel and nervousness Kalqqrqrvtah41/18/2023 Tendon rupture OxcarbazepineNausea and IkkkgggoWvdvox89/24/2018SulfamethoxazoleWeakness 05/07/20214808UaxilejekpncBokulgbt93/01/2021 Medications MedicationSigDispense QuantityRefillsLast FilledStart DateEnd DateStatus ibandronate 150 MG Tab Take 1 tablet by mouth every 30 days.09/10/2016Active pantoprazole [address] Take 1 tablet by mouth every evening at 6 PM.Active triamterene-hydrochlorothiazide 37.5-25 MG Cap Take 1 capsule by mouth as needed (edema).Active lisinopril 40 MG tablet Take 1 tablet by mouth daily.Active Hydroxychloroquine 200 MG tablet Take 1 tablet by mouth 2 times daily.Active amoxicillin 250 MG capsule Take 2 capsules by mouth every 8 hours. 4 capsules 1 hour before procedureActive Diclofenac Sodium 1 % Gel gel Diclofenac Diclofenac Sodium Active 4 GM Topical Four times daily October 01, 2020 10:38am 10-01-2020 [facility] ([address]907)10/01/2020Active Doxazosin 4 MG tablet Take 1 tablet by mouth daily.12/30/2022ctive pregabalin 25 MG capsule every 12 hours.02/15/2023ctive tiZANidine 4 MG tablet Take 1 tablet by mouth every 6 hours as needed for Muscle spasms.Active predniSONE 5 MG tablet Take 1 tablet by mouth as needed (for flair up of whole body).Active Leflunomide 20 MG tablet Take 1 tablet by mouth daily.Active Biotin 1 MG capsule Take by mouth daily.Active Alpha-Lipoic Acid 200 MG capsule 1 capsule daily.Active Folic acid 1 MG tablet Take 1 tablet by mouth daily.Active Ohyqyikngwa-Zujspvmpb-Nam C-Mn (Glucosamine 1500 Complex) capsule Take by mouth daily.Active methotrexate 2.5 MG tablet every 7 days.Active methylPREDNIsolone 4 MG Tab Therapy Pack tablet as needed.02/21/2023ctive traMADol 50 MG tablet Take 1 tablet by mouth 3 times daily as needed for Pain.07/27/2023ctive TURMERIC PO as directed OrallyActive Ascorbic acid 500 MG tablet Take 1 tablet by mouth daily.Active Oyster Shell Calcium w/D 500-5 MG-MCG tablet Take by mouth daily.Active carveDILOL 25 MG tablet Take 1 tablet by mouth 2 times daily.11/14/2023ctive Docusate 100 MG capsule Take 1 capsule by mouth 2 times daily. 60 capsule 11/29/2023ctive apixaban 2.5 MG tablet Take 1 tablet by mouth every 12 hours. This medication is for blood clot prevention 70 tablet 11/29/2023ctive therapeutic multivitamin-minerals tablet Take 1 tablet by mouth at bedtime. 30 tablet 11/29/2023ctive Meloxicam 7.5 MG tablet Take 1 tablet by mouth daily. Take with food. 30 tablet 11/29/2023ctive Sucralfate 1 g tablet Take 1 tablet by mouth 2 times daily. 60 tablet 11/29/2023ctive Acetaminophen 325 MG tablet Take 2 tablets by mouth every 4 hours as needed for Mild Pain. 50 tablet ctive oxyCODONE 5 MG tablet Indications:Acute postoperative pain of left kneeTake 1-2 tabs po q 4-6 hours prn pain. Wean as tolerated. 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 11/21/2018 Assessment & Plan (11/21/2018 11:49 AM EST): For likely surgical intervention PT OT social work associate discharge planning DVT prophylaxis per orthopedic surgery recommendation Synovial wrctem4411/21/2018Obesity: body mass index of 30.0-34.9007/19/2017 Assessment & Plan (11/21/2018 11:48 AM EST): Lifestyle changes and dietary modifications Patellar tendon elbfvdw0807/19/2017Benign ovibgtdvgfxn28/12/2017 Assessment & Plan (11/21/2018 11:49 AM EST): Continue outpatient therapy Add when necessary for systolic blood pressure greater than 160 Rheumatoid giakvguxh71/12/2017 Assessment & Plan (11/21/2018 11:49 AM EST): Resume outpatient therapy when okay per orthopedic surgery GERD (gastroesophageal reflux disease)2017 Assessment & Plan (11/21/2018 11:49 AM EST): Continue PPI daily Family History Medical HistoryRelationNameCommentsCancerFatherBleeding or Clotting Problems Motherblood clotsHeart Disease - OtherMotherHypertensionMotherCancerSister DiabetesSisterRelationNameStatusCommentsFatherDeceasedMotherDeceasedSister Social History Tobacco UseTypesPacks/DayYears UsedDateSmoking Tobacco: NeverSmokeless Tobacco: Never Tobacco Cessation:Counseling Given: Not Answered Alcohol UseStandard Drinks/WeekCommentsNo0 (1 standard drink = 0.6 oz pure alcohol)C UtilitiesAnswerDate RecordedIn the past 12 months has the electric, gas, oil, or water company threatened to shut off services in your home?No 11/29/2023Hunger Vital SignAnswerDate RecordedWithin the past 12 months, you worried that your food would run out before you got the money to buymore.Never true11/29/2023Within the past 12 months, the food you bought just didn't last and you didn't have money to get more.Never true11/29/2023RAPARE - TransportationAnswerDate RecordedIn the past 12 months, has lack of transportation kept you from medical appointments or from getting medications?No 11/29/2023In the past 12 months, has lack of transportation kept you from meetings, work, or from getting things needed for daily living?No11/29/2023 Housing Stability Vital SignAnswerDate RecordedIn the last 12 months, was there a time when you were not able to pay the mortgage or rent on time?No11/29/2023In the last 12 months, how many places have you lived?In the last 12 months, was there a time when you did not have a steady place to sleep or slept in mauriceelt (including now)?No11/29/2023CommentsUnknownSex and Gender InformationValueDate RecordedSex Assigned at BirthNot on fileLegal SexFemale 01/04/2017 4:08 PM ESTGender IdentityFemaleSexual TylztywydshAxvfldfn00/19/2025 8:16 AM EST Last Filed Vital Signs Vital SignReadingTime TakenCommentsBlood Qnapgyvb245/61012/02/2023 7:33 AM EST Qvqyk253912/02/2023 7:33 AM JSGThqcqonbngg74.4 ??C (97.5 ??F)05/31/2024 9:44 AM EDTRespiratory Ysiw486912/02/2023 7:33 AM ESTOxygen Zoiwmybblb63%12/02/2023 8:00 AM ESTInhaled Oxygen Concentration--Oowcsk566 kg (236 lb)11/28/2024 11:19 AM EST Ijutgn600.2 cm (5' 7 )11/28/2024 11:19 AM ESTBody Mass Index36.9611/28/2024 11:19 AM EST Plan of Treatment DateTypeDepartmentCare Team (Latest Contact Info)Sckaqswdybi02/21/2026 10:00 AM ESTOffice Visit [facility] [address] [place] [address] New Borden MD [address] [place] [address] Dakota Green APRN-MARTY [address] [place] [address] Health MaintenanceDue DateLast DoneCommentsDEXA SCAN WRMXRYWPZP1955 HEPATITIS C VIRUS BOEYTPSYP95/12/6743EVFZKWG1953TDAP (ADULT)1972 CERVICAL CANCER SCREENING HGDUGAJMVP63/12/1974LIPID CSBIRTGCK92/12/1993 COLORECTAL CANCER SCREENING AGYUXELWNL92/12/1998ZOSTER (SHINGLES) VACCINE (1 of 2)2003MAMMOGRAM SCREENING SETRQEUIYL88/25/202310/OTASSIUM 5012/01/2023, 11/30/2023, 11/03/2023, Additional history existsCOVID-19 VACCINE (2024- season), 08/25/2023, 08/23/2022, Additional history existsINFLUENZA VACCINE (#1), 08/25/2023, 08/23/2022, Additional history existsRSV VACCINE (1 - 1-dose 75+ series) 2028PNEUMOCOCCAL VACCINE EOBKGTNpexssgxy97/18/2025, 09/11/2018HEP B VACCINEAged OutNo longer eligible based on patient's age to complete this topic Medical Devices ImplantedTypeAreaManufacturerDevice IdentifierShelf Expiration DateModel / Serial / LotProlite Mesh 25.4 Cm X 35.5cm Implanted:Qty: 1 on 11/21/2018 by New Borden MD at [facility] Left: EfuvCTONAT95/25/2023/ [id number] / [id number] Knee System Revision Distal Femoral Augment Size 7 12mm Cemented Implanted:Qty: 1 on 11/29/2023 by New Borden MD at [facility] Left: KneeDEPUY ORTHOPAEDICS INC//[id number] / / [id number] Mesh Polypropylene Nonabsorbable Synthetic Surgical Mesh 12 X 12 Implanted:Qty: 1 on 11/29/2023 by New Borden MD at [facility] Left: Knee09/06/2027/ / [id number] Knee System Revision Pressfit Stem 12mm X 60mm Implanted:Qty: 1 on 11/29/2023 by New Borden MD at [facility] Left: KneeDEPUY ORTHOPAEDICS INC04/06/[id number] / / [id number] Knee System Revision Distal Femoral Augment Size 7 12mm Cemented Implanted:Qty: 1 on 11/29/2023 by New Borden MD at [facility] Left: KneeDEPUY ORTHOP[employer] INC05/06/[id number] / / [id number] Knee System Revision Tibial Base Rotating Platform Size 5 Cemented Implanted:Qty: 1 on 11/29/2023 by New Borden MD at [facility] Left: KneeDEPUY ORTH[employer] INC06/06/[id number] / / [id number] Knee System Revision Tibial Sleeve Poracoat Partially Coated 37mm Implanted:Qty: 1 on 11/29/2023 by New Borden MD at [facility] Left: KneeDEPUY ORTHOP[employer]//[id number] / / [id number] Knee System Revision Femoral Sleeve Porocoat Partially Coated 40mm Implanted:Qty: 1 on 11/29/2023 by New Borden MD at [facility] Left: KneeDE[employer]//[id number] / / [id number] Knee System Revision Posterior Femoral Augment Size 7 4mm Cemented Implanted:Qty: 2 on 11/29/20[facility] Left: KneeDEPUY ORTHOPAEDICS [id number] / / [id number] Knee System Revision Crs Femoral Size 7 Left Cemented Implanted:Qty: 1 on 11/29/2023 by New Borden MD at [facility] Left: KneeDEPUY ORTHOPAED[employer] [id number] / / [id number] R 1x40 Single - [id number] Implanted:Qty: 1 [facility]/ / [id number] R+G 1x40 Single With Gentamicin - [id number] Implanted:Qty: 4 on 11/29/20[id number] / / [id number] R 1 X 40 - [id number] Implanted:Qty: 2 on 04/26/2023 by New Borden MD at [facility]: Knee 10/06/2027/ [id number] / [id number] Knee System Revision Tibial Base Fixed Bearing Implanted:Qty: 1 on 04/26/2023 by New Borden MD at [facility]: Knee DEPUY BYXWSFZ7611/06/2032/ 1506-40-005 / [id number] Femoral Posterior Stabilized Implanted:Qty: 1 on 04/26/2023 by New Borden MD at [facility]: Knee DEPUY YEGZJAG1609/06/2032/ 1504-10-207 / [id number] Patella Medialized Dome Implanted:Qty: 1 on 04/26/2023 by New Borden MD at [facility]: Knee DEPUY JURTWWR7209/06/2027/ 1518-20-038 / [id number] Cancellous Bone Screw Implanted:Qty: 1 on 04/26/2023 by New Borden MD at [facility]: Knee DEPUY YIQOXCN6503/06/2027/ 1217-25-500 / [id number] Tibial Insert Fixed Bearing Posterior Stabilized Implanted:Qty: 1 on 04/26/2023 by New Borden MD at [facility]: Knee DEPUY KNMGFOI4406/06/2027/ 1516-40-708 / [id number] Knee System Revision Pressfit Stem Implanted:Qty: 1 on 11/29/2023 by New Borden MD at [facility]: Knee DEPUY UAYOWJM3702/05/2032/ 1513-16-060 / [id number] R & G Bone Cement High-Viscosity With Gentamicin - [id number] Implanted:Qty: 1 on 11/29/2023 by New Borden MD at [facility]: Knee 01/04/2026/ [id number] / [id number] Knee System Revision Crs Rotating Platform Insert Implanted:Qty: 1 on 11/29/2023 by New Borden MD at [facility]: Knee DEPUY LXOMQKD0704/06/2028/ 1517-10-712 / [id number] Procedures Procedure NamePriorityDate/TimeAssociated DiagnosisCommentsBASIC METABOLIC PANEL Today12/01/2023 4:51 AM EST from Last 3 Months or Most Recently Relevant to Health Maintenance Results * (ABNORMAL) BASIC METABOLIC PANEL (12/01/2023 4:51 AM EST)ComponentValueRef RangeTest MethodAnalysis TimePerformed AtPathologist FiatjrmipCkteazb652(H)70 - 100 MG/DL[address]Comment: NORMAL <100 mg/dL PREDIABETES 101-126 mg/dL DIABETES 126 mg/dL or higher CNA701 - 20 MG/DL[address] CREATININE SERUM0.50(L)0.70 - 1.20 MG/DL[address]SODIUM136(L)137 - 145 MMOL/[address]Potassium3.4(L)3.5 - 5.1 MMOL/[address]CHLORIDE10698 - 107 MMOL/[address]Comment:Please note: Triglyceride levels of 600mg/dL or higher may positively bias chloride results by approximately 2.1 mmolCARBON DIOXIDE (CO2)2322 - 30 MMOL/[address]ANION MZQ1OHJD/[address]CALCIUM8.48.4 - 10.2 MG/DL[address]ESTIMATED GFR, NON VEZF404 ml/min/1.73sq.[address]ESTIMATED GFR, EVYCWMEM159xc/min/1.73sq.[address]GFR COMMENTAverage GFR for 70+ years old = 75.[address]Comment: Chronic Kidney disease, GFR = <60. Kidney failure, GFR = <15. The GFR estimate is not adjusted for extreme body surface area or acute process, nor has it been validated for women or ethnic groups other than and . Specimen (Source)Anatomical Location / LateralityCollection Method / Volume Collection TimeReceived ChqqIudix76/25/2024 4:51 AM EST12/01/2023 5:27 AM EST Narrative Authorizing ProviderResult TypeResult StatusDeshawn Sunshine MDCHEMISTRY ORDERABLES Final ResultPerforming OrganizationAddressCity/State/ZIP CodePhone Number [address] [address] from Last 3 Months or Most Recently Relevant to Health Maintenance Insurance Advance Directives For more information, please contact: [phone] (7:30 AM - 6PM [facility], Tuesday-Tuesday) * Full Code (Latest Code Status on File) Date ActivatedDate InactivatedComments11/29/2023 5:14 PM * Full Code Date ActivatedDate InactivatedComments04/26/2023 2:32 PM11/29/2023 5:14 PM * Full Code Date ActivatedDate InactivatedComments11/21/2018 2:46 PM04/26/2023 2:32 PM * Full Code Date ActivatedDate InactivatedComments07/18/2017 4:04 PM07/21/2017 7:25 PM Care Teams Team MemberRelationshipSpecialtyStart DateEnd Date Stevie Hoyos MD PCP - GeneralFamily Medicine03/18/23
--- OUTSIDE RECORDS SUMMARY | 2025-09-05 09:56 | XMS_ITS | Clinical Summary ---
Author Organization [facility] Address [address] [place] [address] Care Team Providers Care Audio Visual Engineer Name Role Phone Unavailable Primary Care Provider Unavailabl e Social History Tobacco UseTypesPacks/DayYears UsedDateSmoking Tobacco: Never Assessed CommentsUnknownSex and Gender InformationValueDate RecordedSex Assigned at Not on fileLegal TmzQftthu02/29/2022 10:00 PM EDTGender IdentityNot on file Sexual OrientationNot on file Last Filed Vital Signs Vital SignReadingTime TakenCommentsBlood Pressure--Pulse--Temperature-- Respiratory Rate--Oxygen Saturation--Inhaled Oxygen Concentration--Vazhnl85.9 kg (218 lb)03/10/2020 1:17 PM PCSFqanjv344.7 cm (5' 8 )03/24/2020 10:45 AM EDTBody Mass Index33.15003/10/2020 1:17 PM EDT Plan of Treatment Not on file
--- OUTSIDE RECORDS SUMMARY | 2025-09-05 09:56 | XMS_ITS | Encounter Summary ---
Author Organization [facility] Address [address] [place] [address] Care Team Providers Care Manager Of Community Relations Name Role Phone Stevie Hoyos MD Primary Care Provider [phone] Gaby Christianson NP Unavailable Unavailable Celso Delatorre MD Unavailable Encounter Details DateTypeDepartmentCare Team (Latest Contact Info)Fauqgljzige89/30/2025Bamboo flowsheet [facility] [address] [facility] [address] [place] [address] Elie Tello, DPKeri [address] [facility] [address] [place] [address] Social History Tobacco UseTypesPacks/DayYears UsedDateSmoking Tobacco: NeverSmokeless Tobacco: NeverAlcohol UseStandard Drinks/WeekCommentsDefer0 (1 standard drink = 0.6 oz pure alcohol)Caffeine: Current some daysCommentsUnknownSex and Gender InformationValueDate RecordedSex Assigned at QutesAhwiky40/24/2023 3:52 PM EDT Legal EjpBfufxf83/01/2023 8:32 PM EDTGender SbosouruEbnbfz43/24/2023 3:52 PM EDT Sexual RwonqgkdnbdVorquqmo71/24/2023 3:52 PM EDTdocumented as of this encounter Plan of Treatment DateTypeDepartmentCare Team (Latest Contact Info)Jqruyqyegty50/22/2026 8:30 AM ESTProcedure Visit [facility] [address] [facility] [address] [place] [address] Elie Tello, DPKeri [address] [facility] [address] [place] [address] 02/19/2026 9:00 AM EDTOffice Visit [facility] [address] [place] [phone] Yo Gilmore, DO [address] [place] [address] documented as of this encounter Visit Diagnoses Not on filedocumented in this encounter Care Teams Team MemberRelationshipSpecialtyStart DateEnd Date Stevie Hoyos MD [address] [place] [phone] PCP - General07/06/23 Gaby Christianson NP [address] [place] [address] Nurse PractitionerNeurology01/26/24 Celso Delatorre MD [address] [facility] [address] [place] [phone] Referring PhysicianRheumatology07/31/24documented as of this encounter
--- OUTSIDE RECORDS SUMMARY | 2025-09-05 09:56 | XMS_ITS | Clinical Summary ---
Author Organization [facility] Address [address] [facility], [address] [place] [address] Care Team Providers Care Completion Manager Name Role Phone Unavailable Primary Care Provider Unavailabl e Social History Tobacco UseTypesPacks/DayYears UsedDateSmoking Tobacco: Never Assessed CommentsUnknownSex and Gender InformationValueDate RecordedSex Assigned at Not on fileLegal RlbKhnmoh86/16/2021 3:51 PM EDTGender IdentityNot on fileSexual OrientationNot on file Plan of Treatment Not on file Insurance
--- OUTSIDE RECORDS SUMMARY | 2025-09-05 09:56 | XMS_ITS | Encounter Summary ---
Author Organization [facility] Address [address] [place] [address] Care Team Providers Care Flat Bed Knitter Name Role Phone Stevie Hoyos MD Primary Care Provider [phone] Gaby Christianson NP Unavailable Unavailable Celso Delatorre MD Unavailable [phone] Encounter Details DateTypeDepartmentCare Team (Latest Contact Info)Tdafzjhshrr07/23/2025Travel Social History Tobacco UseTypesPacks/DayYears UsedDateSmoking Tobacco: NeverSmokeless Tobacco: NeverAlcohol UseStandard Drinks/WeekCommentsDefer0 (1 standard drink = 0.6 oz pure alcohol)Caffeine: Current some daysCommentsUnknownSex and Gender InformationValueDate RecordedSex Assigned at XolxxIdolqd04/24/2023 3:52 PM EDT Legal NdzYflwrv72/01/2023 8:32 PM EDTGender NgiwgwupSrvlip21/24/2023 3:52 PM EDT Sexual IgffgreolojQkhfcnfq03/24/2023 3:52 PM EDTdocumented as of this encounter Plan of Treatment DateTypeDepartmentCare Team (Latest Contact Info)Yxcndwyfdul58/22/2026 8:30 AM ESTProcedure Visit [facility] [address] [place] [address] Elie Tello, PK [address] [facility] 5 [place] [address] 02/19/2026 9:00 AM EDTOffice Visit [facility] [address] [place] [address] Yo Gilmore, [address] [place] [address] documented as of this encounter Visit Diagnoses Not on filedocumented in this encounter Care Teams Team MemberRelationshipSpecialtyStart DateEnd Date Stevie Hoyos MD [address] [place] [address] PCP - General07/06/23 Gaby Christianson NP [address] [place] [address] Nurse PractitionerNeurology01/26/24 Celso Delatorre MD [address] [facility] Professional building [address] [place] [phone] Referring PhysicianRheumatology07/31/24documented as of this encounter
--- OUTSIDE RECORDS SUMMARY | 2025-09-05 09:56 | XMS_ITS | Clinical Summary ---
Author Organization [facility] Address [address] [place] [address] Care Team Providers Care Manager Transfusion Name Role Phone Yulisa Batres MD Primary Care Provider [phone] Gaby Christianson NP Unavailable Unavailable Celso Delatorre MD Unavailable [phone] Allergies Active AllergyReactionsCriticalityNoted DateCommentsAlendronateRashMedium 08/29/2018 Other Reaction(s): Abdominal Discomfort, Dyspepsia, Indigestion, Not available GabapentinNausea And Vomiting,Nausea Only,FwdwRjlksy90/24/2018 Other Reaction(s): Not available Gabapentin (Once-Daily)High08/30/2018 Other Reaction(s): Allergy, Blistered Skin, Blisters, Not available Caused the skin on her lips to peel and nervousness Hmgjldyynqnc21/18/2023 Tendon rupture OxcarbazepineNausea And Vomiting,LlwuUhvlck57/24/2018 Other Reaction(s): Confusion, Not available Sulfamethoxazole-Bwhwiesrovfm26/05/2021 Other Reaction(s): Joint pain, Muscle weakness, Myalgia Medications MedicationSigDispense QuantityRefillsLast FilledStart DateEnd DateStatus pantoprazole (ProtoNix) 40 MG EC tablet Take 40 mg by mouth in the morning. Take before meals.Active hydroxychloroquine (Plaquenil) 200 MG tablet Take 200 mg by mouth in the morning and 200 mg before bedtime.Active leflunomide (Arava) 20 MG tablet Take 20 mg by mouth DailyActive folic acid (Folvite) 1 MG tablet Take 1,000 mcg by mouth in the morning.Active tiZANidine (Zanaflex) 4 MG tablet Take 4 mg by mouth every 6 (six) hours if neededActive doxazosin (Cardura) 4 MG tablet Take 4 mg by mouth 1 (one) time each day at the same timeActive Zmkhlmbbvkm-Yuqtigiwr-Rci C-Mn (Glucosamine 1500 Complex) capsule as directed OrallyActive Turmeric 500 MG capsule as directed OrallyActive traMADol (Ultram) 50 MG tablet Take 50 mg by mouth 3 (three) times a day as needed for moderate pain or severe painActive diclofenac sodium 1 % gel External for 19 DaysActive methotrexate 2.5 MG tablet Take 12.5 mg by mouth 1 (one) time per week.Active ibandronate (Boniva) 150 MG tablet Take 150 mg by mouth every 30 (thirty) daysActive triamterene-hydrochlorothiazide (Maxzide-25) 37.5-25 MG tablet Take 1 tablet by mouth DailyActive methylPREDNISolone (Medrol Dospak) 4 MG tablets TAKE QAHMGZTD02/17/2023ctive predniSONE (Deltasone) 5 MG tablet Take 5 mg by mouth As directedActive ascorbic acid (Vitamin C) 500 MG tablet Take 1,000 mg by mouth in the morning.Active biotin 1 MG capsule Take 2 mg by mouth in the morning.Active Calcium Carb-Cholecalciferol (Oyster Shell Calcium w/D) 500-5 MG-MCG tablet Take by mouth DailyActive lisinopril 40 MG tablet Take 40 mg by mouth in the morning.Active acetaminophen (Tylenol 8 Hour) 650 MG ER tablet Take 1-2 tablets by mouth 2 (two) times a day as needed for mild pain or moderate pain Do not crush, chew, or split.Active carvedilol (Coreg) 25 MG tablet Take 25 mg by mouth in the morning and 25 mg in the evening. Take with meals. Active Multiple Vitamin (multivitamin) tablet Take 1 tablet by mouth DailyActive pregabalin (Lyrica) 25 MG capsule Indications:Paresthesias,Spinal stenosis of lumbar region, unspecified whether neurogenic claudication presentTake 1 capsule (25 mg) by mouth in the morning and 1 capsule (25 mg) before bedtime. Do not start before March 21, 2025. 60 capsule 5Active Active Problems ProblemNoted DateDiagnosed DateLong-term use of llglkcleymmjxwqoxc65/24/2024Left posterior capsular gqlyyieyktgzn88/24/5240Iremaedsguund66/18/2024Trigeminal shbhjvpyl53/18/2024rthritis, lumbar spine04/24/20249508Zlyomrwacwmz46/18/2024Facial lujzhyzg92/18/6081Yvotcgwjcs91/18/2024Spinal stenosis excluding cervical region 04/24/2024 Overview (04/24/2024): Lumbar region , without neurogenic claudication PVD (peripheral vascular disease)04/24/2024eripheral eptizezttw56/18/2024Small fiber xyetxxahtc15/18/9565Rsdhmtpegzcodk80/18/2024 Overview (04/24/2024): The patient reports asymmetric paresthesias in the distal bilateral lower extremities (left more significant than right) which have not progressed since her prior appointment at [facility]. She has historically been diagnosed [...] up to assess for potential causes of polyneuropathy.This was declined by the patient today - Continue Lyrica 25 mg PO BID for neuropathy - Fall precautions discussed Hemifacial spasm04/24/2024Lumbar xjskeukzyjeit84/18/2024Spondylolisthesis 04/24/20246263Gyntpzaf18/18/2024Muscle spasm04/24/2024Facet arthritis of lumbar dwpere9604/24/20244725Sntadvyva45/18/2024egenerative disc disease, hgmsmf8504/24/2024 Disturbance of skin vhxqbtluj80/18/2024adiculopathy, lumbosacral region 04/24/2024Sciatica of left side04/24/2024Lumbar spinal /18/2024 Overview (04/24/2024): The patient has a history [...] note, she also follows with rheumatology Lumbar mmdjhdtsudg08/18/2024Lumbar facet vljovyscwki13/18/2024aresthesias 04/24/2024 Overview (04/24/2024): The patient presents today reporting constant paresthesias in the 1st digit and intermittent paresthesias in the 2nd and 3rd digits of the left hand. She denies neck pain, arm pain/paresthesias, or left upper extremity weakness. Given the clinical description, I am most suspicious for a left medianneuropathy or potential cervical radiculopathy. PLAN: - I strongly recommended EMG of the LUE to assess for potentially causative processes as well as the severity. Patient declined at this time due to upcoming knee surgery in November 2023. She understands that EMG could help improve diagnostic accuracy and guide treatment options Intermediate stage nonexudative age-related macular degeneration of both eyes 07/13/2023ry eyes07/13/2023lepharitis of upper and lower eyelids of both eyes 07/13/2023 Resolved Problems ProblemNoted DateDiagnosed DateResolved DateBilateral posterior capsular pqsrbkkxefqfk61/06/202309/ Encounters DateTypeDepartmentCare MkczZgjojkntycr82/30/2025 8:30 AM EDTProcedure Visit [facility] [address] [place] [phone] Elie Tello DPM Other polyneuropathy (Primary Dx); Pain due to onychomycosis of toenails of both feet09/05/2025amboo flowsheet [facility] [address] [place] [phone] Elie Tello DPM 09/05/20254139Vomotk83/23/2471Cybdhf02/14/2025 8:30 AM EDTProcedure Visit [facility] [address] [place] [phone] Elie Tello DPM Pain due to onychomycosis of toenails of both feet (Primary Dx)06/20/2025amboo flowsheet [facility] [address] [place] [address] Elie Tello DPM 06/20/20251889Avkhrq03/07/5648Qnizaf64/31/2025Travelfrom Last 3 Months Immunizations ImmunizationAdministration DatesNext DuePneumococcal Conjugate PCV Family History Medical HistoryRelationNameCommentsCancerFatherEarl DickCancerMaternal GrandfatherFred BaumanCancerMotherMary DickMacular degenerationMotherMary Divine CancerMother's Sister 1Anna BaumanCataractsMother's Sister 2Ruth BaumanStroke Mother's Sister 2Ruth BaumanHeart diseaseOtherCancerSister 1Carolyn Bruce CataractsSister 1Carolyn CarnahanDiabetesSister 1Carolyn CarnahanMigrainesSister 1Carolyn CarnahanCataractsSister 2Janice ZieberRelationNameStatusCommentsFather Carmelo DickDeceasedMaternal GrandfatherFred BaumanMotherMary DickDeceasedMother's Sister 1Anna BaumanMother's Sister 2Ruth BaumanOtherSister 1Carolyn Bruce Sister 2Janice Zieber Social History Tobacco UseTypesPacks/DayYears UsedDateSmoking Tobacco: NeverSmokeless Tobacco: Never Tobacco Cessation:Counseling Given: Yes Alcohol UseStandard Drinks/WeekCommentsDefer0 (1 standard drink = 0.6 oz pure alcohol)Caffeine: Current some daysCommentsUnknownSex and Gender InformationValueDate RecordedSex Assigned at DpfydZwyucm49/24/2023 3:52 PM EDT Legal LouFwpzcx38/01/2023 8:32 PM EDTGender QrjnvvrvYwxcil34/24/2023 3:52 PM EDT Sexual KngpzrtvtaeKpnoamfc58/24/2023 3:52 PM EDT Last Filed Vital Signs Vital SignReadingTime TakenCommentsBlood Wbioxoaz105/98002/28/2025 9:15 AM EDT Yujmu946102/28/2025 9:15 AM EDTTemperature--Respiratory Bseb5558 8:25 AM EDTOxygen Afjaotwfkf78%02/28/2025 9:15 AM EDTInhaled Oxygen Concentration-- Pjmqtz767 kg (222 lb)09/05/2025 8:25 AM LMCXoghgu379.7 cm (5' 8 )09/05/2025 8:25 AM EDTBody Mass Index33.7509/05/2025 8:25 AM EDT Plan of Treatment DateTypeDepartmentCare Team (Latest Contact Info)Jrwjpwevdcp58/22/2026 8:30 AM ESTProcedure Visit [facility] [address] [facility] 120 [place] [address] Elie Tello, DPKeri 3006 [facility] 5 [place] [address] 02/19/2026 9:00 AM EDTOffice Visit [facility] [address] [place] [address] Yo Gilmore DO [address] [place] [address] Health MaintenanceDue DateLast DoneCommentsCT Iyxzandkocks1953Colonoscopy 3Colorectal Cancer Kqzflyvqh1953FIT-DNA1953FIT1955 FOBT1955 6736Mwxmjhaaxuhuh1953DTaP/Tdap/Td Vaccines (1 - Tdap)1960 Rhkcybsxa67OVID-19 Vaccine ( season)2025 09/03/2024, 08/25/2023, 09/07/2021, Additional history existsInfluenza Vaccine (#1)51, 08/25/2023, 08/23/2022, Additional history exists Pneumococcal Vaccine: 65+ UtdniOvuhlljhe81/18/2025, 09/11/2018HIB VaccinesAged OutNo longer eligible based on patient's age to complete this topicHPV Vaccines Aged OutNo longer eligible based on patient's age to complete this topic Hepatitis A VaccinesAged OutNo longer eligible based on patient's age to complete this topicHepatitis B VaccinesAged OutNo longer eligible based on patient's age to complete this topicIPV VaccinesAged OutNo longer eligible based on patient's age to complete this topicMeningococcal B VaccineAged OutNo longer eligible based on patient's age to complete this topicMeningococcal VaccineAged OutNo longer eligible based on patient's age to complete this topicRotavirus VaccinesAged OutNo longer eligible based on patient's age to complete this topic Procedures Procedure NamePriorityDate/TimeAssociated DiagnosisCommentsBI MAMMOGRAM SCREENING TOMOSYNTHESIS KGLZMZVBJClcerac09/25/2022 from Last 3 Months or Most Recently Relevant to Health Maintenance Results * Bilateral screening mammogram with tomosynthesis (08/31/2022)Anatomical Region LateralityModalityBreastBilateralMammographySpecimen (Source)Anatomical Location / LateralityCollection Method / VolumeCollection TimeReceived Time Narrative 08/31/2022 12:00 AM EDT PERFORMED AT [facility] LOCATION:[address] Patient: ? DIVINE Holden ? Exam Date: ? 08/31/2022 : ? 1955 ?Gender:F ? Ordering : ? DR JACK LANDAVERDE . ? Admission #: ? [id number] Family : ? DR YULISA BATRES . ? Order #: ? [id number] ? CLICK HERE TO VIEW EXAM RADIOLOGY REPORT PROCEDURE: ? MAMMOGRAM SCREENING 3D BILATERAL CAD COMPARISON: ? MG MAMM SCREEN 3D BO CAD 08/27/2021. ??MG MAMM SCREEN BO W CAD 08/25/2020. INDICATIONS: ? Screening mammography Calculator Name ? NCI Breast Cancer Risk Assessment Tool 5 Year Breast Cancer Risk ? 1.90% Lifetime Breast Cancer Risk ? 5.90% Personal Breast Cancer ?No Personal Ovarian Cancer ? No Treatments ? None Family Cancers ? Father with stomach cancer at age 55; Sister with thyroid cancer at age 50. LOCATION: ? [facility] BREAST COMPOSITION: ? Scattered areas fibroglandular density. FINDINGS: DIAGNOSTIC CATEGORY 1--NEGATIVE. NO CHANGE FROM COMPARISON ASSESSMENT. Scattered benign-appearing calcifications are present. ??Scattered benign-appearing lymph nodes are present. RIGHT BREAST: ??No significant suspicious finding. LEFT BREAST: ??No significant suspicious finding. RECOMMENDATIONS: ROUTINE MAMMOGRAM AND CLINICAL EVALUATION IN 12 MONTHS. PLEASE NOTE: ??A NORMAL MAMMOGRAM DOES NOT EXCLUDE THE POSSIBILITY OF BREAST CANCER. ??A CLINICALLY SUSPICIOUS PALPABLE LUMP SHOULD BE BIOPSIED. Dictated by: Felix Sandoval MD on 08/31/2022 at 11:12 Approved by: Felix Sandoval MD on 08/31/2022 at 11:14 Procedure Note CONVERSION, GENERIC - 05/13/2023 PERFORMED AT [facility] LOCATION:[address] Patient: DIVINE Holden Exam Date: 08/31/2022 : 1955 Gender:F Ordering : DR JACK LANDAVERDE . Admission #: [id number] Family : DR YULISA BATRES . Order #: [id number] CLICK HERE TO VIEW EXAM RADIOLOGY REPORT [...] withthyroid cancer at age 48. LOCATION: [facility] BREAST COMPOSITION: Scattered areas fibroglandular [...] Felix Sandoval MD on 08/31/2022 at 11:14 Authorizing ProviderResult TypeResult StatusGregcleveland clinic [facility] Katherine OCONNELLRobyn BI PROCEDURES Final Result from Last 3 Months or Most Recently Relevant to Health Maintenance Insurance Care Teams Team MemberRelationshipSpecialtyStart Date Yulisa Batres MD [address] [place] [phone] PCP - General07/06/23 Gaby Christianson NP [address] [place] [address] Nurse PractitionerNeurology01/26/24 Celso Delatorre MD [address] [facility] Professional building [address] [place] [phone] Referring PhysicianRheumatology07/31/24
--- OUTSIDE RECORDS SUMMARY | 2025-09-05 09:56 | XMS_ITS | Clinical Summary ---
Author Organization [facility] Address [address] [place] [address] Care Team Providers Care Knife Operator Name Role Phone Stephen Begum Primary Care Provider [phone] Medications MedicationSigDispense QuantityRefillsLast FilledStart DateEnd DateStatus FOLBIC 2.5-25-2 mg tab 10/03/2016Active fentaNYL (DURAGESIC) 12 mcg/hr pt72 09/12/2016Active gabapentin (NEURONTIN) 100 mg capsule 2016Active GRALISE 300 mg Tb24 10/05/2016Active hydroxychloroquine (PLAQUENIL) 200 mg tablet 10/03/2016Active Ibandronate 150 mg tablet 09/10/2016Active leflunomide (ARAVA) 20 mg tablet 10/03/2016Active methotrexate 2.5 mg tablet 10/03/2016Active magnesium oxide (MAG-OX) 400 mg tablet 09/27/2016Active oxyCODONE-acetaminophen (PERCOCET) 5-325 mg tablet 09/27/2016Active predniSONE (DELTASONE) 10 mg tablet 09/27/2016Active traMADol (ULTRAM) 50 mg tablet 08/06/[address] pantop[address] (PROTONIX) 40 mg tablet Take 40 mg by mouth once daily.Active hydroxychloroquine (PLAQUENIL) 200 mg tablet Take by mouth once daily.Active Ibandronate (BONIVA) 150 mg tablet Take 150 mg by mouth once every month.Active baclofen (LIORESAL) 10 mg tablet Take 10 mg by mouth three times daily.Active CALCIUM CARBONATE/VITAMIN D3 (CALCIUM + D ORAL) Take by mouth.Active acetaminophen (TYLENOL ARTHRITIS PAIN) 650 mg CR tablet Take 650 mg by mouth every 8 hours as needed.Active biotin 1,000 mcg chew Take by mouth.Active ascorbic acid, vitamin C, (VITAMIN C) 500 mg tablet Take 500 mg by mouth once daily.Active [place]-3 Fatty Acids-Vitamin E (FISH OIL) 1,000 mg cap Take 1 capsule by mouth.Active Social History Tobacco UseTypesPacks/DayYears UsedDateSmoking Tobacco: Never Assessed CommentsUnknownSex and Gender InformationValueDate RecordedSex Assigned at Not on fileLegal CbfNjkmpk26/16/2016 2:47 PM ESTGender IdentityNot on fileSexual OrientationNot on file Plan of Treatment Health MaintenanceDue DateLast DoneCommentsAnxiety Auvkzwfrj39/12/1971Depression Ooflzcxjy80/12/1971Hepatitis C Wibsxuqss74/12/1971DTaP,Tdap,Td Vaccine (1 - Tdap)1972Mammogram Eviguaaxv74/12/1993CT Pvzrhqajfvmy09/12/1998Cologuard (FIT-DNA)07/19/19989144Goyfmgcwaxo63/12/1998Colorectal Cancer Oembbbczy09/12/1998 Diabetes Tohkidsis00/12/1998Fecal Occult Blood1998Lipid Screening 07/19/19983592Xywessdcwiiay18/12/1998Pneumococcal Vaccine: 50+ (1 of 1 - PCV) 2003Shingrix Vaccine (1 of 2)2003Bone Density Jthnnzowx26/12/2018 Advance Directive Qgybdjmatj26/01/2025ovid-19 Vaccine (1 - 2024-26 season) 2025Influenza Vaccine (#1)2025RSV Vaccine (1 - 1-dose 75+ series) 2028 Care Teams Team MemberRelationshipSpecialtyStart DateEnd Date Stephen Begum DO PCP - GeneralFamily Sjnbobsc44/16/16
--- OUTSIDE RECORDS SUMMARY | 2025-09-05 09:56 | XMS_ITS | Encounter Summary ---
Author Organization [facility] Address [address] [place] [address] Care Team Providers Care Investment Professional Name Role Phone Stevie Hoyos MD Primary Care Provider [phone] Gaby Christianson NP Unavailable Unavailable Celso Delatorre MD Unavailable Encounter Details DateTypeDepartmentCare Team (Latest Contact Info)Nzbcivxxahc75/30/2025Travel Social History Tobacco UseTypesPacks/DayYears UsedDateSmoking Tobacco: NeverSmokeless Tobacco: NeverAlcohol UseStandard Drinks/WeekCommentsDefer0 (1 standard drink = 0.6 oz pure alcohol)Caffeine: Current some daysCommentsUnknownSex and Gender InformationValueDate RecordedSex Assigned at OjsibUmcego75/24/2023 3:52 PM EDT Legal HyjJprjyz52/01/2023 8:32 PM EDTGender NhshjltxMoqioc22/24/2023 3:52 PM EDT Sexual ZneriofntdcEpyvmheu82/24/2023 3:52 PM EDTdocumented as of this encounter Plan of Treatment DateTypeDepartmentCare Team (Latest Contact Info)Wtxmbokbear21/22/2026 8:30 AM ESTProcedure Visit [facility] 112 [facility] 120 [place] [address] Elie Tello, PK [address] [facility] 5 [place] [address] 02/19/2026 9:00 AM EDTOffice Visit [facility] Eye [address] [place] [address] Yo Gilmore, [address] [place] [address] [place] [address] documented as of this encounter Visit Diagnoses Not on filedocumented in this encounter Care Teams Team MemberRelationshipSpecialtyStart DateEnd Date Stevie Hoyos MD [address] [place] [address] PCP - General07/06/23 Gaby Christianson NP [address] [place] [address] Nurse PractitionerNeurology01/26/24 Celso Delatorre MD [address] [facility] Professional building [address] [place] [phone] Referring PhysicianRheumatology07/31/24documented as of this encounter
--- OUTSIDE RECORDS SUMMARY | 2025-09-05 09:56 | XMS_ITS | Clinical Summary ---
Author Organization [facility] Address [address] [place] [address] Phone Care Team Providers Care Newspaper Illustrator Name Role Phone Unavailable Primary Care Provider Unavailabl e Social History Tobacco UseTypesPacks/DayYears UsedDateSmoking Tobacco: Never Assessed CommentsUnknownSex and Gender InformationValueDate RecordedSex Assigned at Not on fileLegal PwpLhdcoa16/25/2022 11:02 AM ESTGender IdentityNot on file Sexual OrientationNot on file Plan of Treatment Not on file
--- OUTSIDE RECORDS SUMMARY | 2025-09-05 10:00 | XMS_ITS | CCD ---
Author Organization [facility] Care Team Providers Care Customs Consultant Name Role Phone Wood, Star A Unavailable Unavailable Wood, Star A Unavailable Unavailable Wood, Star A Unavailable Unavailable Wood, Star A Unavailable Unavailable FOSTER, NEW Unavailable Unavailable FOSTER, NEW Unavailable Unavailable BROWN, STEPHEN Rashmi Unavailable Unavailable ARLYN VANCE Unavailable Unavailable FOSTER, NEW Unavailable Unavailable DAYRON ZAVALA Unavailable Unavailable Salomón Gonzalez Unavailable Saloómn Gonzalez Primary Care Provider Salomón Gonzalez Primary [...] Unavailable Yulisa Batres MD Primary Care Provider [phone] Yulisa Batres MD Primary Care Provider [phone] Mal, Mary Admitting Unavailable Mal, Mary Attending Unavailable Hoy, Yulisa M Primary Care Unavailable Darren Monaco Referring Unavailable Yulisa Batres MD Primary Care Provider [phone] Sammy SUPERVISOR OF INSTRUCTION, Gaby Unavailable Juan Ramon OCONNELL, Darren Chatman Unavailable [phone] FOSTER, NEW Attending Unavailable SELF, SELF Referring Unavailable HOY, YULISA M Primary Care Unavailable FOSTER, NEW Attending Unavailable FOSTER, NEW Referring Unavailable HOY, YULISA M Primary Care Unavailable FOSTER, NWE Attending Unavailable FOSTER, NEW Referring Unavailable HOY, [...] Unavailable Yulisa Batres MD Primary Care Provider [phone] Yulisa Batres MD Primary Care Provider [phone] Sammy LAND APPRAISER-FLATWORK FINISHER HAND-C, Gaby Chatman Attending Provider Sammy SUPERVISOR OF INSTRUCTION, Gaby Unavailable Unavailable Magalie Kaufman DO Attending Provider Yulisa Batres MD Primary Care Provider [phone] Sammy SUPERVISOR OF INSTRUCTION, Gaby Unavailable Unavailable CHRISTIANSON, GABY Attending Unavailable BROWN, ELIE [...] Attending Unavailable Shante Montenegro DO Attending Provider [phone] Allergies Allergy ClassificationReported Allergen(s)Allergy TypeDate of OnsetReaction(s) FacilityAlendronate (1 source)AlendronateDrug Stulisy18-99-0299Sdfzlbqfi Discomfort, DyspepsCleburne Community [facility] SystemAnti-Epileptic Agents (3 sources)gabapentinDrug Nswfajt23-57-3588Npoyou and Vomiting, [facility] / Trimethoprim (1 source)Sulfamethoxazole / TrimethoprimDrug Psjhbob82-30-8700HwqatguLkrbk Health System (20 sources)AlendronateDrug Jeckyda25-91-5503Ctobpszfe Discomfort, Dyspepsia, [facility] Work Phone: (20 sources)gabapentinDrug Driuzqi51-10-0683Dqyiaz and Vomiting, Nausea Only, [facility] Work Phone: (20 sources)gabapentinDrug Vmihcph31-15-6480EumlfdhtZsraChillicothe Hospital Work Phone: (20 sources)OXcarbazepineDrug Yomjtlf12-11-1784Rynvct and VomitingChillicothe Hospital Work Phone: (20 sources)CiprofloxacinDrug Mopszth07-16-0376Kxmlkja, Unknown ReactionBradley Hospital [facility] (20 sources)levoFLOXacinDrug Bkzzima01-99-3536Cblwumj, Unknown ReactionNoevidanza [employer] Other (20 sources)Sulfamethoxazole / TrimethoprimDrug Ezgsvjy72-40-5396XyanpwnLdcjz [employer] Other (1 source)AlendronateDrug AllergyC[facility]ository (1 source)gabapentinDrug AllergyC[facility]ository (1 source)gabapentinDrug AllergyC[facility] (1 source)OXcarbazepineDrug AllergyC[facility] Clinic [facility] Repository (7 sources)Alendronate; Translations: [alendronate sodium]Drug Aevpzpa22-65-3888 Unknown ReactionOhiohealth Pickerington [facility] (13 sources)Sulfamethoxazole; Translations: [sulfamethoxazole]Drug Allergy 70-62-1128KydkefkbMvdadtztdOhioHealth Doctors Hospital (13 sources)Trimethoprim; Translations: [trimethoprim]Drug Yoatlzu57-62-4982 [facility] (1 source)CiprofloxacinDrug Grgtxnw66-48-2542JvotsmqesOhiohealth Pickerington [facility] Repository (1 source)gabapentinDrug Umbbvmv78-17-9289IszyworubOhiohealth [facility]ering[facility] Repository (1 source)OXcarbazepineDrug Czosotr76-54-3002ZrotxbvvqOhiohealth [facility]ering[facility] (20 sources)OxcarbazepinePropensity to adverse reactions to oyjo12-31-2722Cdvhce and Vomiting, RashParkwood Hospital System Medications Current Medications MedicationDrug Class(es)DatesSig (Normalized)Sig (Original)acetaminophen 325 mg oral tablet (20 sources)Start: 02-08-8558vjtz 2 tablets by mouth every four hours as needed Acetaminophen 325 MG tablet Take 2 tablets by mouth every 4 hours as needed for Mild Pain. 50 tablet 1 11/29/2023 ActiveStart: 73-52-6672jwuu 2 tablets by mouth every four hours as neededAcetaminophen 325 MG tablet Take 2 tablets by mouth every 4 hours as needed for Mild Pain. Do not exceed 4000mg of Tylenol in 24 hour period. 50 tablet 1 04/26/2023 ActiveStart: 96-85-0115qgsk 1 tablet by mouth every twelve hoursAcetaminophen (Tylenol Arthritis) 650 mg Tablet Extended Release Active 650 MG PO Q12H May 07, 2021 12:00am Complies with drug therapy Start: 69-90-8827wvwe 2 tablets by mouth every six hoursacetaminophen (TYLENOL) tablet 1,000 mgStart: 07-18-2017 End: 59-10-5669kupg 2 tablets by mouth every four hours as neededacetaminophen 325 MG tablet Take 2 tablets by mouth every 4 hours as needed for Mild Pain. 50 tablet 1 11/21/2018 Activetake 1 tablet by mouth twice daily as needed acetaminophen (Tylenol 8 Hour) 650 MG ER tablet Take 1-2 tablets by mouth 2 (two) times a day as needed for mild pain or moderate pain Do not crush, chew, or split. ActiveAcetaminophen (TYLENOL ARTHRITIS PAIN PO) Take 2 tablets by mouth as needed. ActiveALPHA LIPOIC ACID PO (20 sources)ALPHA LIPOIC ACID PO take 200 mg by mouth 3 times daily.. 0 Active ALPHA LIPOIC ACID PO take 200 mg by mouth 3 times daily.. Activeamoxicillin 500 mg oral capsule (20 sources)Penicillin-class AntibacterialStart: 12-22-2023 End: 33-48-0360Ijrhrwdndtd 500 MG capsule Take 4 capsules 1 hour before procedure 8 capsule 1 12/22/2023 12/22/2024 ActiveStart: 11-19-2020 End: 69-38-1027ezieedceqyc 500 MG capsule Take 4 capsules 1 hour before procedure 8 capsule 1 11/19/2020 11/19/2021 ActiveStart: 03-01-2019 End: 35-98-4005cvwlfeizcqx 500 MG Cap capsule Take 4 capsules 1 hour before procedure 8 capsule 1 03/01/2019 03/01/2020 Activeamoxicillin 250 MG capsule Take 2 capsules by mouth every 8 hours. 4 capsules 1 hour before procedure Activetake 4 capsules by mouth every eight hoursamoxicillin 250 MG capsule Take 500 mg by mouth every 8 hours. 4 capsules 1 hour before procedure 0Active apixaban 2.5 mg oral tablet (20 sources)Factor Xa InhibitorStart: 11-29-2023 End: 28-54-0765bhkc 1 tablet by mouth every twelve hoursapixaban 2.5 MG tablet Take 1 tablet by mouth every 12 hours. This medication is for blood clot prev ention 70 tablet 11/29/2023 ActiveStart: 04-26-2023 End: 90-49-1192hcyc 1 tablet by mouth every twelve hoursapixaban 2.5 MG tablet Take 1 tablet by mouth every 12 hours. This medication is for blood clot prev ention 70 tablet 0 04/26/2023 ActiveStart: 11-21-2018 End: 16-10-2775pcrn 1 tablet by mouth every twelve hoursapixaban 2.5 MG Tab tablet Take 1 tablet by mouth every 12 hours. This medication is for blood clot prevention 70 tablet 0 11/21/2018 Activeascorbic acid 500 mg oral tablet (20 sources)Vitamin CStart: 34-99-3120dycq 1 tablet by mouth once dailyAscorbic Acid (Vitamin C) (Vitamin C) 500 mg Tablet Active 500 MG PO Daily October 01, 2020 1:00am Complies with drug therapytake 2 tablets by mouth in the morning ascorbic acid (Vitamin C) 500 MG tablet Take 1,000 mg by mouth in the morning. Activetake 1 tablet by mouth once dailyAscorbic acid 500 MG tablet Take 1 tablet by mouth daily. ActiveAscorbic Acid (Vitamin C) 1000 MG tablet Take 500 mg by mouth daily. 0 Activeazithromycin 250 mg oral tablet (9 sources)Macrolide AntimicrobialStart: 07-18-2024 End: 03-00-0924wuit 1 tablet by mouth once dailyazithromycin (Zithromax Z-Rhett) 250 MG tablet Indications: Abscess of toe, right Take 1 tablet (250 mg) by mouth Daily for 5 days Use as directed 6 tablet 07/30/2024 08/04/2024 Activebiotin 1 mg chewable tablet (20 sources)Start: 94-48-0964ixzn 1 tablet by mouth once dailyBiotin 1,000 mcg Tablet,Chewable Active 1000 MCG PO Daily May 07, 2021 12:00am Complies with drugtherapyStart: 44-26-6581maqh 1 capsule by mouth twice dailyBiotin 10,000 mcg Capsule Active 78412 MCG PO Twice daily October 01, 2020 1:00am Complies with drug therapytake 2 capsules by mouth in the morningbiotin 1 MG capsule Take 2 mg by mouth in the morning. ActiveBiotin 1 MG capsule Take by mouth daily. Activetake 2 tablets by mouth twice dailyBiotin 74354 MCG Tab Take 2 tablets by mouth 2 times daily. 0 Activebisacodyl 10 mg rectal suppository (1 source)Stimulant LaxativeStart: 82-82-6574xidrwcrja (DULCOLAX) suppository 10 mgonabotulinumtoxina 200 unt injection (6 sources)Acetylcholine Release InhibitorStart: 02-28-2025 End: 47-76-3881jczclnpnuifmspiqzK (Botox) injection 80 UnitsStart: 02-28-2025 End: 55-49-3134lqnpbb 80 [IU] by intramuscular injection once80 Units, Intramuscular, Once, On Shonda 02/28/25 at 1300, For 1 dose, Charging context for this clinic-administered medication: Medically Necessary/InsuranceStart: 10-25-2024 End: 59-12-8344mijdlvwbjbcrvmqsjG (Botox) injection 80 UnitsStart: 10-25-2024 End: 07-58-7270bcyabd 80 [IU] by intramuscular injection once80 Units, Intramuscular, Once, On Shonda 10/25/24 at 1215, For 1 dose, Charging context for this clinic-administered medication: Medically Necessary/InsuranceStart: 07-26-2024 End: 34-63-2331sdduiudssirhclfmyQ (Botox) injection 80 UnitsStart: 07-26-2024 End: 51-72-1264mheaiy 80 [IU] by intramuscular injection once80 Units, Intramuscular, Once, On Shonda 07/26/24 at 1300, For 1 dose, Charging context for this clinic-administered medication: Medically Necessary/Insurancecalcium carbonate 500 mg chewable tablet (1 source)Start: 76-39-8871rnqnpck carbonate (TUMS) tablet 500 mgcalcium carbonate 1500 mg / cholecalciferol 200 unt oral capsule (20 sources)Vitamin DStart: 54-43-5948obah 1 capsule by mouth once dailyCalcium Carbonate-Vitamin D3 (Calcium 600 + D(3)) 600 mg calcium- 200 unit Capsule Active 1 CAP PO Daily October 01, 2020 1:00am Complies with drug therapy Calcium Carb-Cholecalciferol (Oyster Shell Calcium w/D) 500-5 MG-MCG tablet Take by mouth Daily Activetake 2.5 tablets by mouth once daily at lunchCalcium Carb- Cholecalciferol (CALCIUM 600 + D) 600-200 MG-UNIT Tab tablet Take 2.5 tablets by mouthDaily (with lunch). 0 Activecalcium carbonate 1250 mg / cholecalciferol 1000 unt / vitamin k 0.4 mg chewable tablet (20 sources)Vitamin D End: 93-74-6756Wggjryk-Vitamin D-Vitamin K (Calcium + D) 500-1000-40 MG-UNT-MCG chewable tablet 1 (one) time each day at the same time. 05/15/2025 Discontinued carvedilol 25 mg oral tablet (20 sources)alpha-Adrenergic Heidi, beta-Adrenergic BlockerStart: 11-14-2023 Carvedilol 25 mg tablet Active 25 MG PO May 01, 2025 12:00am Complies with drug therapyStart: 23-16-4197knsj 1 tablet by mouth twice dailycarveDILOL 12.5 MG tablet Take 1 tablet by mouth 2 times daily. 0 12/21/2022 Active End: 78-35-8888dzrx 2 tablets by mouth every twelve hourscarvedilol (Coreg) 12.5 MG tablet Take 25 mg by mouth every 12 (twelve) hours 07/31/2024 Discontinued carvedilol (Coreg) 12.5 MG tablet every 12 (twelve) hours. Activecephalexin 500 mg oral capsule (5 sources)Cephalosporin AntibacterialStart: 01-10-2025 End: 98-14-4474mqip 1 capsule by mouth in the morning, then take 1 capsule by mouth in the evening, then take 1 capsule by mouth at bedtime, then take 1 capsule by mouth three times dailycephalexin (Keflex) 500 MG capsule Indications: Cellulitis of left foot Take 1 capsule (500 mg) by mouth in the morning and 1 capsule (500 mg) in the evening and 1 capsule (500 mg) before bedtime. Doall this for 10 days. Take one tablet by mouth three times daily. 30 capsule 01/10/2025 01/20/2025 ActiveChondroitin Sulfates / Glucosamine (20 sources)Glucosamine-Chondroitin (GLUCOSAMINE CHONDR COMPLEX PO) take 1 tablet by mouth daily.. 0 ActiveGlucosamine-Chondroitin (GLUCOSAMINE CHONDR COMPLEX PO) take 1 tablet by mouth daily.. Activeclindamycin 300 mg oral capsule (7 sources)Lincosamide AntibacterialStart: 01-02-2025 End: 13-23-8933evrz 1 capsule by mouth in the morning, then take 1 capsule by mouth in the evening, then take 1 capsule by mouth at bedtimeclindamycin (Cleocin) 300 MG capsule Indications: Cellulitis of left foot Take 1 capsule (300 mg) by mouth in the morning and 1 capsule (300 mg) in the evening and 1 capsule (300 mg) before bedtime. Do all this for 10 days. 30 capsule 01/02/2025 01/12/2025 ActiveStart: 08-02-2024 End: 09-74-3239dqvl 1 capsule by mouth in the morning, then take 1 capsule by mouth in the evening, then take 1 capsule by mouth at bedtimeclindamycin (Cleocin) 300 MG capsule Indications: Abscess of toe, right Take 1 capsule (300 mg) by mouth in the morning and 1 capsule (300 mg) in the evening and 1 capsule (300 mg) before bedtime. Doall this for 10 days. 30 capsule 08/02/2024 08/12/2024 ActiveclonazePAM 0.5 mg oral tablet (20 sources)BenzodiazepineStart: 35-35-3707zjvm 0.5-1 tablets by mouth at bedtime as neededclonazePAM 0.5 MG Tab tablet TAKE 1/2 TO 1 TABLET BY MOUTH AT BEDTIME NEEDED 1 07/01/2018 ActiveD-BIOTIN (18 sources)Biotin 73837 MCG Tab take 2 tablets by mouth 2 times daily.. 0 ActiveBiotin 87188 MCG Tab take 2 tablets by mouth 2 times daily.. Active1 ml dexamethasone phosphate 4 mg/ml injection (12 sources)CorticosteroidStart: 73-03-2125mpclrwdepfgxr 4 MG/ML Solution injection 1 mL by Other route As directed for 18 doses. (1 cc 3 x a week at physical therapy via iontophoresis) for up to 18 doses. 30 mL 0 03/01/2019 ActiveStart: 11-22-2018 End: 51-68-5837ljsp 10 mg intravenous route every twenty-four hoursdexamethasone (DECADRON) injection 10 mgdiclofenac sodium 0.01 mg/mg topical gel (20 sources)Nonsteroidal Anti-inflammatory DrugStart: 39-21-0964Cdrjonryzo Sodium 1 % Gel gel Diclofenac Diclofenac Sodium Active 4 GM Topical Four times daily October 01, 2020 10:38am 10-01-2020 [facility] ([id number]) 10/01/2020 ActiveStart: 60-08-4831Jrooxqfrvy Sodium 1 % Gel gel Diclofenac Diclofenac Sodium Active 4 GM Topical Four times daily October 01, 2020 10:38am 10-01-2020 [facility] ([id number]) 0 10/01/2020 ActiveStart: 92-41-4267zsbih 4 g topically four times dailyDiclofenac Sodium 1 % gel Active 4 GM TOPICAL Four times daily October 01, 2020 1:00am Complies w ith drug therapyStart: 42-73-2262agtcl 4 g topically four times dailyDiclofenac Sodium Active 4 GM TOPICAL Four times daily October 01, 2020 1:00amStart: 01-09-2018 End: 66-08-5574ASVRKIRC 1 % Gel gel 1 Application as needed. 01/09/2018 11/24/2018 Discontinueddocusate sodium 100 mg oral capsule (20 sources)Start: 33-53-9642ejzm 1 capsule by mouth twice dailyDocusate 100 MG capsule Take 1 capsule by mouth 2 times daily. 60 capsule 11/29/2023 Active Start: 86-81-5273zeub 1 capsule by mouth twice dailyDocusate 100 MG capsule Take 1 capsule by mouth 2 times daily. Hold for loose stools. 60 capsule 0 0 04/26/2023 ActiveStart: 07-18-2017 End: 21-28-9846dckz 1 capsule by mouth twice dailydocusate 100 MG Cap capsule Take 1 capsule by mouth 2 times daily. 60 capsule 0 11/21/2018 Activedocusate sodium 50 mg / sennosides, prison 8.6 mg oral tablet (1 source)Start: 86-74-2887jbitd-docusate (SENOKOT-S) 8.6-50 MG per tablet 2 tabletdoxazosin 4 mg oral tablet (20 sources)alpha-Adrenergic BlockerStart: 52-88-4207Eqerxpjzs 4 mg tablet Active 4 MG PO May 01, 2025 12:00am Complies with drug therapyFish Oils (1 source)take 1 capsule by mouth once dailyFish Oil 1000 MG 1 capsule Orally Once a day for 30 day(s) Activefolic acid 1 mg oral tablet (20 sources)Start: 38-23-6472fcvz 1 tablet by mouth once dailyFolic Acid 1 mg tablet Active 1 MG PO Daily October 01, 2020 1:00am Complies with drug therapyglucosamine 500 mg oral tablet (1 source)take 1 capsule by mouth once dailyGlucosamine 500 MG 1 capsule with a meal Orally Once a day for 30 day(s) McvgpeCpjnqfbvyjf-Istjkdtuy-Vbx C-Mn (Glucosamine 1500 Complex) capsule (20 sources)Hxmkrmgiutn-Gdseyloqn-Obr C-Mn (Glucosamine 1500 Complex) capsule as directed Orally HbytzqBsrkzrpkvyh-Jzjyuocjh-Ybg C-Mn (Glucosamine 1500 Complex) capsule Take by mouth daily. GmyafaSqcxddrjrca-Bwikxsbjq-Enu C-Mn (Glucosamine 1500 Complex) capsule Take by mouth daily. 0 Active Fbpfkhfmilh-Lmh-Pkufxhpxp-Vitc (Glucosamine Complex-Msm) Capsule (6 sources)Start: 84-92-0471ggge 1 capsule by mouth once dailyStart: 10-01-2020 take 1 capsule by mouth once gyckcPqjgcryvfyn-Asm-Aulccsxtl-Vitc (Glucosamine Complex-Msm) Capsule Active 1 CAP PO Daily October 01, 2020 1:00am Complies with drug therapyStart: 61-03-3591nrmq 1 capsule by mouth once daily Zjhtjdkwnug-Nno-Qckrzyirs-Vitc (Glucosamine Complex-Msm) Capsule Active 1 CAP PO Daily October 01, 2020 1:00am1 ml hydrALAZINE hydrochloride 20 mg/ml injection (1 source)Arteriolar VasodilatorStart: 41-95-3494zyph 10 mg intravenous route every six hours as neededhydrALAzine (APRESOLINE) injection 10 mg hydroCHLOROthiazide 25 mg / triamterene 37.5 mg oral tablet (20 sources)Potassium-sparing Diuretic, Thiazide DiureticStart: 56-33-8578fvmn 1 tablet by mouth once dailyTriamterene-Hydrochlorothiazid 37.5-25 mg Tablet Active 1 TAB PO Daily May 07, 2021 12:00am Complies with drug therapyStart: 76-61-5928fefs 1 tablet by mouth once daily1 tablet, Oral, DAILY, First dose on Tue11/21/18 at 1230, Until Discontinuedtriamterene-hydrochlorothiazide 37.5-25 MG Cap Take 1 capsule by mouth as needed (edema). Activetriamterene- hydrochlorothiazide (Maxzide-25) 37.5-25 MG tablet Active1 ml HYDROmorphone hydrochloride 1 mg/ml cartridge (1 source)Opioid AgonistStart: 65-62-6902khci 0.5 mg intravenous route every four hours as neededHYDROmorphone (DILAUDID) injection 0.5 mghydroxychloroquine sulfate 200 mg oral tablet (20 sources)Antimalarial, Antirheumatic AgentStart: 46-96-7856frmb 1 tablet by mouth twice dailyHydroxychloroquine 200 mg Tablet Active 200 MG PO Twice daily October 01, 2020 1:00am Complies with drug therapyStart: 10-01-2020 End: 46-71-6558qjok 200 mg by mouth twice dailyHydroxychloroquine Active 200 MG PO Twice daily October 01, 2020 1:00amtake 1 tablet by mouth in the morning hydroxychloroquine (Plaquenil) 200 MG tablet Take 200 mg by mouth in the morning and 200 mg before bedtime. Activeibandronic acid 150 mg oral tablet (20 sources)BisphosphonateStart: 54-76-4694Klxhsgthsct 150 mg tablet Active 150 MG PO May 01, 2025 12:00am Complies with drug therapyStart: 10-01-2020 End: 29-07-0161vzct 1 tablet by mouth every monthIbandronate 150 mg tablet Discontinued 150 MG PO every month October 01, 2020 1:00am May 07, 2021 11:16amStart: 40-97-1945qibd 1 tablet by mouth every 30 daysibandronate 150 MG Tab Take 1 tablet by mouth every 30 days. 09/10/2016 Activeleflunomide 20 mg oral tablet (20 sources)Antirheumatic AgentStart: 79-01-6925hlci 1 tablet by mouth once dailyLeflunomide 20 mg tablet Active 20 MG PO Daily October 01, 2020 1:00am Complies with drug therapyStart: 10-03-2016 End: 06-65-7141drtrwvmtkqq 20 MG Tab take 20 mg by mouth at bedtime.. 10/03/2016 11/24/2018 Discontinuedlisinopril 40 mg oral tablet (20 sources)Angiotensin Converting Enzyme InhibitorStart: 25-92-2388Ptoaiavtzc 40 mg tablet Active 40 MG PO May 01, 2025 12:00am Complies with drug therapy Start: 56-84-8685fjsa 1 tablet by mouth once dailyLisinopril 10 mg tablet Active 10 MG PO Daily October 01, 2020 1:00am Complies with drug therapymeloxicam 7.5 mg oral tablet (18 sources)Nonsteroidal Anti-inflammatory DrugStart: 27-92-3485xccv 1 tablet by mouth once daily at mealtimeMeloxicam 7.5 MG tablet Take 1 tablet by mouth daily. Take with food. 30 tablet 11/29/2023 ActiveStart: 80-90-5582rkeq 1 tablet by mouth once daily at mealtimeMeloxicam 7.5 MG tablet Take 1 tablet by mouth daily. Take with food. 30 tablet 0 04/26/2023 Activemethotrexate 2.5 mg oral tablet (20 sources)Folate Analog Metabolic InhibitorStart: 52-61-4840pugf 5 tablets by mouth every weekmethotrexate 2.5 MG tablet TAKE 5 TABLETS BY MOUTH ONCE EVERY WEEK 0 10/03/2020 ActiveStart: 14-00-3358urjo 6 tablets by mouth every week Methotrexate Sodium 2.5 mg Tablet Active 12.5 MG PO Q7D October 01, 2020 1:00am 6 one day a weekon Tuesday Complies with drug therapyStart: 10-01-2020 Methotrexate Sodium Active 12.5 MG PO Q7D October 01, 2020 1:00am 6 one day a week on Tuesday End: 79-94-1248pjszkifgdcax 2.5 MG tablet every 7 days. ActivemethylPREDNISolone (20 sources)CorticosteroidStart: 81-59-2607vksljaCMGATFwgxvgr 4 MG Tab Therapy Pack tablet as needed. 02/21/2023 ActiveStart: 41-63-1742jeapuvXIIGHLAaxkpc (Medrol Dospak) 4 MG tablets TAKE DIRECTED 02/21/2023 ActiveStart: 02-21-2023 methylPREDNIsolone 4 MG Tab Therapy Pack tablet As directed. 0 02/21/2023 Active Multiple Vitamin (multivitamin) tablet (20 sources)take 1 tablet by mouth once dailyMultiple Vitamin (multivitamin) tablet Take 1 tablet by mouth Daily ActiveMultiple Vitamins-Minerals (MULTIVITAMIN ADULT PO) (20 sources)Multiple Vitamins-Minerals (MULTIVITAMIN ADULT PO) take 1 tablet by mouth at bedtime.. 0 ActiveMultiple Vitamins-Minerals (MULTIVITAMIN ADULT PO) take 1 tablet by mouth at bedtime.. ActiveMultivitamin preparation (2 sources)Start: 94-58-4830duom 1 tablet by mouth once dailyMultivitamin Active 1 TAB PO Daily October 01, 2020 1:00amMultivitamin as directed Orally Active Multivitamin Tablet (5 sources)Start: 11-54-8739tjat 1 tablet by mouth once dailyStart: 10-01-2020 take 1 tablet by mouth once dailyMultivitamin Tablet Active 1 TAB PO Daily October 01, 2020 1:00am Complies with drug therapy2 ml ondansetron 2 mg/ml injection (1 source)Serotonin-3 Receptor AntagonistStart: 75-97-9179puvy 4 mg intravenous route every four hours as neededondansetron 4mg/2ml (ZOFRAN) injection 4 mg oxyCODONE hydrochloride 5 mg oral tablet (20 sources)Opioid AgonistStart: 62-61-5479inha 1-2 tablets by mouth every four to six hours as needed for painoxyCODONE 5 MG tablet Indications: Acute postoperative pain of left knee Take 1-2 tabs po q 4-6 hours prn pain. Wean as tolerated. 30 tablet 11/29/2023 ActiveStart: 13-98-8478udlGVQBPR 5 MG tablet Indications: Acute postoperative pain of right knee Take one to two tabs every 4-6 hours as needed for severe pain. Wean as tolerated 30 tablet 0 04/26/2023 ActiveStart: 07-18-2017 End: 20-96-5238zgvl 1-2 tablets by mouth every four to six hours as needed for painoxyCODONE 5 MG Tab tablet Indications: Acute postoperative pain of left knee Take 1-2 tabs po q 4-6hours PRN pain. 60 tablet 0 11/21/2018 Activepantoprazole 40 mg delayed release oral tablet (20 sources)Proton Pump InhibitorStart: 39-81-8033msve 1 tablet by mouth once dailyPantoprazole 40 mg tablet,delayed release (DR/EC) Active 40 MG PO Daily October 01, 2020 1:00am Complies with drug therapypredniSONE 5 mg oral tablet (20 sources)Start: 63-12-3698bijl 1 tablet by mouth twice daily as needed for pain, then take 1-2 tablets by mouth once daily asneeded for painPrednisone 5 mg Tablet Active 5 MG PO Twice daily as needed for Pain May 07, 2021 12:00am Dr Monaco placed on. 1-2 as needed per day Complies with drug therapypsyllium 520 mg oral capsule (20 sources)Start: 33-43-7453Rcfyqoaq Husk (Metamucil) 0.52 gram Capsule Active 0.52 GM PO Daily May 07, 2021 12:00am Complieswith drug therapytake 1 dose by mouth once daily in the eveningPsyllium (METAMUCIL FIBER PO) take 1 Dose by mouth every evening.. 0 Activetake 1 dose by mouth once daily in the evening Psyllium (METAMUCIL FIBER PO) take 1 Dose by mouth every evening.. Ljxuil3494 ml sodium chloride 9 mg/ml injection (2 sources)Start: 11-21-2018 End: 78-30-4839fwehxs chloride 0.9% IV solutionsodium phosphate, dibasic 35.5 mg/ml / sodium phosphate, monobasic 96.4 mg/ml enema (1 source)Start: 22-87-2162ayvtda phosphate w/sodium biphosphate (FLEETS) enema 1 enemasucralfate 1000 mg oral tablet (18 sources)Aluminum ComplexStart: 32-34-3138jqpk 1 tablet by mouth twice daily Sucralfate 1 g tablet Take 1 tablet by mouth 2 times daily. 60 tablet 11/29/2023 ActiveStart: 22-58-3092vemv 1 tablet by mouth twice dailySucralfate 1 g tablet Take 1 tablet by mouth 2 times daily. While on NSAID therapy 84 tablet 0 04/26 Activetherapeutic multivitamin-minerals tablet (18 sources)Start: 63-61-1220evlc 1 tablet by mouth at bedtimetherapeutic multivitamin-minerals tablet Take 1 tablet by mouth at bedtime. 30 tablet 11/29/2023 ActiveStart: 82-09-5012qrsz 1 tablet by mouth at bedtimetherapeutic multivitamin-minerals tablet Take 1 tablet by mouth at bedtime. 30 tablet 0 04/26/2023 Activethioctic acid 200 mg oral tablet (20 sources)Start: 75-49-9866zboy 1 tablet by mouth once dailyAlpha Lipoic Acid 200 mg Tablet Active 200 MG PO Daily October 01, 2020 1:00am Complies with drug therapy End: 80-18-2636Smong-Lipoic Acid 200 MG capsule 1 capsule daily. Active tiZANidine 4 mg oral tablet (20 sources)Central alpha-2 Adrenergic AgonistStart: 10-03-3652Ibrqxnkwvb 4 mg tablet Active 4 MG PO May 01, 2025 12:00am Complies with drug therapytraMADol hydrochloride 50 mg oral tablet (20 sources)Opioid AgonistStart: 07-50-1041ifuv 1 tablet by mouth three times daily as needed for paintraMADol 50 MG tablet Take 1 tablet by mouth 3 times daily as needed for Pain. 07/27/2023 ActiveStart: 48-76-2370rpvv 1 tablet by mouth twice daily as needed for painTramadol 50 mg Tablet Active 50 MG PO Twice daily as needed for Pain October 01, 2020 1:00am Complies with drug therapy Start: 11-03-2017 End: 49-42-0859qziFVBlj 50 MG Tab tablet TAKE 1 TABLET TWICE A DAY NEEDED 2 11/03/2017 11/24/2018 Discontinuedtriamcinolone acetonide 0.25 mg/ml topical cream (12 sources)CorticosteroidStart: 16-66-3620Fwhrjzfmvfwjg Acetonide 0.025 % Cream Active 1 APPLIC TOPICAL Twice daily May 07, 2021 12:00am Complies with drug therapyStart: 03-11-2021 End: 85-84-5076cornrpoxsbwxn (KENALOG-40) injection 1 mLStart: 11-19-2020 End: 83-91-9102tofvdibneelou (KENALOG-40) injection 1 mLStart: 11-21-2019 End: 19-22-5737qseiflhmkemxz (KENALOG-40) injection 1 mLStart: 11-21-2019 End: 20-33-6114xnsrhajxguzob (KENALOG-40) injection 1 mLTURMERIC CURCUMIN PO (4 sources)TURMERIC CURCUMIN PO Take by mouth. 0 ActiveTurmeric Root Extract (20 sources)Start: 93-68-0401vqrl 1 capsule by mouth once dailyStart: 05-07-2021 take 1 capsule by mouth once dailyTurmeric Root Extract 500 mg Capsule Active 500 MG PO Daily May 07, 2021 12:00am Complies with drug therapyStart: 72-48-5636uorp 500 mg by mouth once dailyTurmeric Root Extract Active 500 MG PO Daily May 07, 2021 12:00amTurmeric 500 MG capsule as directed Orally Active TURMERIC PO as directed Orally ActiveTURMERIC PO as directed Orally 0 Active zolpidem tartrate 5 mg oral tablet (1 source)gamma-Aminobutyric Acid-ergic AgonistStart: 87-22-0366mmnecqbe (AMBIEN) tablet 5 mg Completed/Discontinued Medications MedicationDrug Class(es)DatesSig (Normalized)Sig (Original)baclofen 10 mg oral tablet (20 sources)gamma-Aminobutyric Acid-ergic AgonistStart: 84-97-5307xlin 20 mg by mouth three times daily as itkeff16 mg, Oral, 3 TIMES DAILY NEEDED, Starting Tue11/21/18 at 1145, Until Discontinued, Muscle spasmstake 2 tablets by mouth three times daily as neededbaclofen 10 MG Tab Take 20 mg by mouth 3 times daily as needed. 0 ActiveCalcium-Vitamin D 600-200 Mg-Unit Po Tabs (3 sources) End: 72-56-4112rtlx 1.5 tablets by mouth once daily in the morningCalcium- Vitamin D 600-200 MG-UNIT Tab take 1.5 tablets by mouth daily every morning.. 11/24/2018 Discontinuedtake 1.5 tablets by mouth once daily in the morning Calcium-Vitamin D 600-200 MG-UNIT Tab take 1.5 tablets by mouth daily every morning.. ActiveceFAZolin 2000 mg injection (1 source)Cephalosporin AntibacterialStart: 11-21-2018 End: 94-24-5316tlzk 2 g intravenous route every eight hoursceFAZolin (ANCEF) 2 g in dextrose 100 mL premix IVPBcelecoxib 200 mg oral capsule (1 source)Nonsteroidal Anti-inflammatory DrugStart: 11-21-2018 End: 24-47-4157cnnbbgavm (CELEBREX) capsule 200 mgferrous sulfate 325 mg oral tablet (12 sources)Start: 10-01-2020 End: 26-94-5830ibap 1 tablet by mouth twice dailyFerrous Sulfate 325 mg (65 mg iron) Tablet Discontinued 325 MG PO Twice daily October 01, 2020 1:00am May 07, 2021 11:17amtake 1 tablet by mouth twice daily as neededferrous sulfate 325 (65 Fe) MG Tab DR tablet Take 325 mg by mouth 2 times daily as needed. 0 Active 1 ml ketorolac tromethamine 15 mg/ml cartridge (1 source)Nonsteroidal Anti-inflammatory Drug, Cyclooxygenase InhibitorStart: 11-21-2018 End: 05-69-4771xclm 15 mg intravenous route every six hoursketorolac (TORADOL) injection 15 mg10 ml lidocaine hydrochloride 10 mg/ml injection (9 sources)Antiarrhythmic, Amide Local AnestheticStart: 03-11-2021 End: 70-49-7236sommiruql 1% (PF) (XYLOCAINE MPF) 1 % injection 5 mLStart: 11-19-2020 End: 27-53-7660ceyqlufkd 1% (PF) (XYLOCAINE MPF) 1 % injection 5 mLStart: 11-21-2019 End: 07-03-8651lzfgixuxq 1% (PF) (XYLOCAINE MPF) 1 % injection 5 mLStart: 11-21-2019 End: 15-77-9897btciokkof 1% (PF) (XYLOCAINE MPF) 1 % injection 5 mLStart: 04-12-2017 End: 08-81-4405topkvrjdr 5 % Ointment as needed.. 6 04/12/2017 11/24/2018 Discontinuedmagnesium oxide 400 mg oral tablet (3 sources)Start: 09-27-2016 End: 75-50-4801Jmlgrxfsh Oxide 400 (240 Mg) MG Tab take 400 mg by mouth as needed.. 09/27/2016 11/24/2018 DiscontinuedOXcarbazepine 150 mg oral tablet (3 sources)Anti-epileptic AgentStart: 01-03-2018 End: 80-32-4159AItefcxocacxn 150 MG Tabpregabalin 25 mg oral capsule (20 sources)Start: 05-01-2025 End: 33-38-9318fhse 1 capsule by mouth twice dailyPregabalin 25 mg capsule Discontinued 25 MG PO Twice daily 60 30 June 17, 2025 4:25pm June 17, 2025 6:17pmStart: 10-22-2024 End: 54-49-3907uuea 2 capsules by mouth in the morningpregabalin (Lyrica) 25 MG capsule Indications: Paresthesias , Spinal stenosis of lumbar region, unsp ecified whether neurogenic claudication present Take 2 capsules (50 mg) by mouth in the morning and2 capsules (50 mg) before bedtime. 60 capsule 2 10/22/2024 10/24/2024 Discontinued (Reorder)Start: 10-15-2024 End: 60-64-6070xypd 1 capsule by mouth in the morningpregabalin (Lyrica) 50 MG capsule Indications: Paresthesias , Spinal stenosis of lumbar region, unsp ecified whether neurogenic claudication present Take 1 capsule (50 mg) by mouth in the morning and 1 capsule (50 mg) before bedtime. 60 capsule 2 10/15/2024 10/22/2024 Discontinued (Reorder)Start: 02-15-2023 End: 02-81-5755twan 1 capsule by mouth in the morningpregabalin (Lyrica) 25 MG capsule Indications: Paresthesias , Spinal stenosis of lumbar region, unsp ecified whether neurogenic claudication present Take 1 capsule (25 mg) by mouth in the morning and 1 capsule (25 mg) before bedtime. Do not start before March 21, 2025. 60 capsule 2 03/21/2025 Activeropivacaine (NAROPIN) 1 % 400 mg, EPINEPHrine PF (ADRENALIN) 1 MG/ML 1 mg, ketorolac (TORADOL) 30 MG/ML 30 mg, cloNIDine 100 MCG/ML 184 mcg, sodium chloride 0.9% 45 mL 88.84 mL (total volume) (1 source)Start: 11-21-2018 End: 19-94-3580xupgjgsfszr (NAROPIN) 1 % 400 mg, EPINEPHrine PF (ADRENALIN) 1 MG/ML 1 mg, ketorolac (TORADOL) 30 MG/ML 30 mg, cloNIDine 100 MCG/ML 184 mcg, sodium chloride 0.9% 45 mL 88.84 mL (total volume)tranexamic acid 650 mg oral tablet (1 source)Antifibrinolytic AgentStart: 11-21-2018 End: 19-58-5438racypltusq acid (LYSTEDA) tablet 1,950 mgvancomycin (VANCOCIN) 1,250 mg in sodium chloride 0.9%, with overfill 287.5 mL (total volume) IVPB (2 sources)Start: 11-21-2018 End: 34-18-0682vggbsaxbdg (VANCOCIN) 1,250 mg in sodium chloride 0.9%, with overfill 287.5 mL (total volume) IVPBStart: 11-21-2018 End: 46-09-1360pdyixnxqvc (VANCOCIN) 1,250 mg in sodium chloride 0.9%, with overfill 287.5 mL (total volume) IVPBzonisamide 100 mg oral capsule (20 sources)Anti-epileptic AgentStart: 10-01-2020 End: 16-56-7817cgdw 1 capsule by mouth at bedtimeZonisamide 100 mg capsule Discontinued 100 MG PO Bedtime October 01, 2020 1:00am May 0159:54am Problems Active Problems Problem ClassificationProblemDateDocumented DateEpisodic/ChronicAcquired foot deformities (20 sources)Acquired deformity of toe of left foot; Translations: [Acquired deformities of toe(s), unspecified,left foot]54-60-3016FemlpwqwZtdpeihm (20 sources)After-cataract of left eye; Translations: [Other secondary cataract, left eye]Onset: 07-13-2023 Resolved: 203406-08-7887FfsgkmxSdgcidi ulcer of skin (4 sources)Non-pressure chronic ulcer of other part of left foot with fat layer exposed; Translations: [Ulcer of other part of foot]79-46-5905QyaonvgRrmwsxkhem and other anemia (6 sources)Iron deficiency anemia; Translations: [Iron deficiency anemia, unspecified]82-98-5949PdflifszGktefxvj of white blood cells (6 sources)Leukopenia; Translations: [Decreased white blood cell count, unspecified]04-03-7165SjfopdsEhlhuecaf of lipid metabolism (20 sources)Hyperlipidemia, unspecified; Translations: [Hyperlipidemia]Onset: 94-62-0111FlgxftbVjohycviwc disorders (20 sources)Gastroesophageal reflux disease; Translations: [Gastro-esophageal reflux disease without esophagitis]Onset: 226032-97-3699OeycmjtOanhlxdap hypertension (20 sources)Benign hypertension; Translations: [Essential (primary) hypertension]Onset: 360364-38-4922JgmhyprUbrwyftz; including migraine (4 sources)Headache; including migraine; Translations: [HEADACHE UNSPECIFIED] Onset: 25-68-0660Zhbbbfa (5 sources)Pain in toe; Translations: [Tinea unguium]91-21-5409Ntsknjzy Nutritional deficiencies (1 source)Vitamin D deficiency, unspecified; Translations: [VITAMIN D DEFICIENCY UNSPECIFIED]Onset: 20-58-5659WdtpvasAvdmejdewbbuyl (20 sources)Primary generalized (osteo)arthritis; Translations: [Osteoarthritis of right knee joint]Onset: 206177-47-1787VrcekhlEjmpltjiuosw (4 sources)Age-related osteoporosis without current pathological fracture; Translations: [AGE-REL OSTEOPOR W/OCURR PATH FX]Onset: 26-51-2058VjfdkehRnusi aftercare (1 source)Other long term acute care registered nurse (current) drug therapy; Translations: [OTH PENITENTIARY CURRENT DRUG THERAPY]Onset: 30-44-8618YfpzhgldOhlko circulatory disease (18 sources)Raynaud's phenomenon; Translations: [Raynaud's syndrome without gangrene]Onset: 188490-09-4685AjjtaiaGwzzv connective tissue disease (18 sources)History of total knee arthroplasty; Translations: [Presence of unspecified artificial knee joint]Onset: 935635-38-5863KqfydxqTzvpu connective tissue disease (3 sources)History of right total knee replacement; Translations: [Presence of right artificial knee joint]20-91-3363ObyxcajPdfib connective tissue disease (3 sources)History of left total knee replacement; Translations: [Presence of left artificial knee joint]11-27-4827HxppdzkSvnge connective tissue disease (2 sources)Presence of left artificial knee joint; Translations: [Presence of left artificial knee joint]Onset: 53-07-2930JpkoujjPbupq connective tissue disease (2 sources)Presence of right artificial knee joint; Translations: [Presence of right artificial knee joint]Onset: 84-85-8948TzqqnfvLopcs connective tissue disease (1 source)Disorder of tendon; Translations: [Extensor mechanism malalignment] EpisodicOther connective tissue disease (4 sources)Pain of toe of right foot; Translations: [Pain in right toe(s)] 75-70-9326PviugfmgExwyg hematologic conditions (6 sources)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; Translations: [Other specified diseases of blood and blood-forming organs]16-37-2198PjufadgWgnum hereditary and degenerative nervous system conditions (20 sources)Blepharospasm; 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]Onset: 04-24-2024 40-54-3098WdctfwcGsrcg nervous system disorders (20 sources)Peripheral nerve disease ; Translations: [Polyneuropathy, unspecified]Onset: 383100-91-1573MtuxrxdVzezu nervous system disorders (20 sources)Small fiber neuropathy; Translations: [Polyneuropathy, unspecified] Onset: 172770-74-5963OcebptvUchyj nervous system disorders (20 sources)Polyneuropathy; Translations: [Polyneuropathy, unspecified]Onset: 757098-03-5634WiofzxhThoyx nervous system disorders (15 sources)Bilateral carpal tunnel syndrome; Translations: [Carpal tunnel syndrome, bilateral upper limbs]61-26-5689JztlskyQekke non-traumatic joint disorders (2 sources)Knee pain; Translations: [Postoperative pain of left knee]Episodic Other non-traumatic joint disorders (2 sources)Pain in right hip; Translations: [Right hip pain]EpisodicOther non- traumatic joint disorders (1 source)Joint pain; Translations: [Pain in prosthetic joint, initial encounter]EpisodicOther non-traumatic joint disorders (7 sources)Pain in left knee; Translations: [Pain in left knee]Onset: 11-21-2018 32-58-6969Rgqcl non-traumatic joint disorders (1 source)Arthritis of right knee; Translations: [Arthritis of right knee]Other nutritional; endocrine; and metabolic disorders (20 sources)Obesity, unspecified; Translations: [Obese class I]Onset: 2017 81-77-3788ZjucwdaExbxi nutritional; endocrine; and metabolic disorders (7 sources)Obese class I; Translations: [Obesity (BMI 30.0-34.9)]Onset: Other screening for suspected conditions (not mental disorders or infectious disease) (7 sources)Encounter for screening for malignant neoplasm of colon; Translations: [Encounter for screening mammogram for malignant neoplasm of breast]Onset: 98-96-7054DfhmqpclOghyp skin disorders (4 sources)Ingrowing nail; Translations: [Ingrowing nail]94-86-5687Cceiuqmz Peripheral and visceral atherosclerosis (20 sources)Peripheral vascular disease; Translations: [Peripheral vascular disease, unspecified]Onset: 288382-08-0013ZvabowuCtaqapk detachments; defects; vascular occlusion; and retinopathy (20 sources)Nonexudative age-related macular degeneration; Translations: [Nonexudative age-related macular degeneration, bilateral, intermediate dry stage]Onset: 457063-61-8945RgpoksfHhgvdnzdpd arthritis and related disease (20 sources)Rheumatoid arthritis; Translations: [Rheumatoid arthritis, unspecified]Onset: 583847-77-9229PqueauqJtfb and subcutaneous tissue infections (20 sources)Cellulitis of left axilla; Translations: [Cellulitis of left axilla] Onset: 116916-14-1021DcoxmllfCvyntpfxieo; intervertebral disc disorders; other back problems (20 sources)Lumbar spondylosis; Translations: [Spondylosis without myelopathy or radiculopathy, lumbar region]Onset: 08-31-2021 Resolved: 26-67-2698YkkcrpnMzvcszbnsrh; intervertebral disc disorders; other back problems (20 sources)Sciatica; Translations: [Sciatica, left side]Onset: 08-31-2021 Resolved: 24-83-4868EndwzyeyVmfgrait lupus erythematosus and connective tissue disorders (20 sources)Systemic involvement of connective tissue, unspecified; 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]Onset: 02-08-2023 ChronicThyroid disorders (18 sources)Hyperthyroidism; Translations: [Thyrotoxicosis, unspecified without thyrotoxic crisis or storm]Onset: 195401-48-4119GinicfrZhctmograzdp (2 sources)Preprocedural examination done; Translations: [Pre-op exam] Unclassified (1 source)History of left total knee replacement; Translations: [Hx of total knee arthroplasty, left]Unclassified (1 source)Decreased white blood cell count, unspecified; Translations: [Decreased white blood cell count, unspecified]Onset: 26-47-2065Oeuyzko tract infections (18 sources)Chronic cystitis; Translations: [Other chronic cystitis without hematuria]Onset: hronic Past or Other Problems Problem ClassificationProblemDateDocumented DateEpisodic/ChronicConditions associated with dizziness or vertigo (20 sources)Dizziness; Translations: [Dizziness and giddiness]Onset: 04-24-2024 15-75-0312XjafgznfNwpmvmdrin and other anemia (1 source)Anemia, unspecified; Translations: [ANEMIA UNSPECIFIED]Onset: 51-58-9799HysxnnqkSptqwaerce and other anemia (1 source)Iron deficiency anemia, unspecified; Translations: [Iron deficiency anemia, unspecified]Onset: 60-30-6329TsotjncnBfibmtsf mellitus without complication (1 source)Other abnormal glucose; Translations: [OTHER ABNORMAL GLUCOSE]Onset: 17-31-2980KlckdwtkAerxgebhabbk; infection of eye (except that caused by tuberculosis or sexually transmitteddisease) (20 sources)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; Translations: [Unspecified blepharitis right eye, upper and lower eyelids]Onset: 171886-26-7263ZyveznzyHafkrxs examination/evaluation (2 sources)Encounter for other preprocedural examination; Translations: [Encounter for other preprocedural examination]Onset: 42-58-9895SndlhwtoTqcgp acquired deformities (20 sources)Spondylolisthesis; Translations: [Spondylolisthesis, site unspecified]Onset: 011485-20-6339ZmldpjrhWwjqm aftercare (20 sources)Drug therapy finding; Translations: [Other correction (current) drug therapy]Onset: 050893-33-5714XovbnznmNmgqj bone disease and musculoskeletal deformities (1 source)Other specified disorders of bone density and structure, unspecified site; Translations: [OTH D/O BONE DEN STRUCT UNS SITE]Onset: 10-06-3832Lklvvfjn Other bone disease and musculoskeletal deformities (20 sources)Osteopenia; Translations: [Other specified disorders of bone density and structure, unspecified site]Onset: 389924-59-2511HrzsqiriPbbcu circulatory disease (1 source)Decreased breath sounds; Translations: [Decreased breath sounds] EpisodicOther connective tissue disease (20 sources)Rupture of patellar tendon; Translations: [Patellar tendon rupture] Onset: 530514-60-6924TttnhbafIlwnp connective tissue disease (20 sources)Synovial hernia; Translations: [Other specified disorders of synovium and tendon, unspecified site]Onset: 590665-51-1067TvmqpwceMfpkb connective tissue disease (20 sources)Fibromyalgia; Translations: [Fibromyalgia]Onset: 04-24-2024 49-38-1815DldcsoivFevnh connective tissue disease (20 sources)Weakness of face muscles; Translations: [Facial weakness]Onset: 489464-07-6667ApgpmfjrDuaxa connective tissue disease (20 sources)Spasm; Translations: [Other muscle spasm]Onset: EpisodicOther connective tissue disease (1 source)Pain of toes of bilateral feet; Translations: [Pain in right toe(s)] 79-52-9772HpomzahiJcszy eye disorders (20 sources)Dry eyes; Translations: [Dry eye syndrome of bilateral lacrimal glands]Onset: 075483-98-3726ZxcvkknqRmgyf nervous system disorders (20 sources)Trigeminal neuralgia; Translations: [Trigeminal neuralgia]Onset: 336956-16-7396ItxxqkngCqwku nervous system disorders (20 sources)Hemifacial spasm; Translations: [Clonic hemifacial spasm, unspecified]Onset: 577395-35-9822KgnjyvkdBamla nervous system disorders (20 sources)Skin sensation disturbance; Translations: [Unspecified disturbances of skin sensation]Onset: 447422-82-9514AusxckqpXsgct nervous system disorders (20 sources)Paresthesia; Translations: [Paresthesia of skin]Onset: 04-24-2024 08-04-8517YjildqxiQjvbp non-traumatic joint disorders (20 sources)Pain in left knee; Translations: [Pain in left knee]Onset: 251206-59-9392TecoflfcWmwit non-traumatic joint disorders (10 sources)Pain in right knee; Translations: [Pain in right knee]Onset: 86-46-9312PgvfcppdIknwybig codes; unclassified (1 source)Family history of malignant neoplasm of digestive organs; Translations: [FAM HX MALIG NEOPLASM DIGESTIV ORGN]Onset: 01-56-1757Yfprdapd Residual codes; unclassified (1 source)Family history of malignant neoplasm of other organs or systems; Translations: [FAM HX MALIG NEOPLASM OTH ORGN/SYS]Onset: 94-04-2825Deufjryp Sprains and strains (20 sources)Strain of other muscle(s) and tendon(s) at lower leg level, unspecified leg, subsequent encounter; Translations: [Rupture of patellar tendon]Onset: 119932-59-6898BapqwsqwTeqbukjufena (14 sources)Onset: 11-24-2018 Resolved: Results Test NameValueInterpretationReference RangeFacilityOptical coherence tomography study reporton [id number] Health ClevelandRadiology Study observation (narrative)[facility] HealthcarePerimetry studyon [id number]. Luke's HospitalRadiology Study observation (narrative)[facility] HospitalXR Foot - left 3 Viewson 74-24-8741Lekeybd Result: K-wire fixation intact with PIPJ arthrodesis site intact to the 3rd digit with rectus 3rd digit notedNOMayo Clinic Health System– Eau ClaireRadiology Study observation (narrative)[facility] HealthcareEMG 2 Extremitieson 24-98-9591Xkgppn tunnel bilaterally. Moderate left and minimal right. C8 radiculopathy bilaterally which is mild in degree electricallyLafayette Regional Health Center HealthcareNVC 11-12 Nerveson 74-31-8671Qqcrag tunnel bilaterally. Moderate left and minimal right. C8 radiculopathy bilaterally which is mild in degree electricallyLafayette Regional Health Center HealthcareOptical coherence tomography study reporton [id number] Memorial Hospital HealthcareOptical coherence tomography study reporton 07-31-2024 Radiology Study observation (narrative)[facility] HealthcarePerimetry studyon [id number] Health ClevelandRadiology Study observation (narrative) [facility] HealthcareCBCon 30-30-7254HCIKSPUC BAS0.0 10*3/uLNormal0.0-0.2AClara Maass Medical CenterComment on above:Performed By: #### ACBC #### Testing performed at [facility] [address] [place], [place] [address]CBZTEYJZ EOS0.0 10*3/uLNormal0.0-0.7AClara Maass Medical Center Comment on above:Performed By: #### ACBC #### Testing performed at [address] [address]HDXQNDNE NEUTROPHIL COUNT2.4 10*3/uLNormal1.4-6.5ABayshore Community Hospital HospitalComment on above:Performed By: #### ACBC #### Testing performed at [address] [address]Cdffuhcan/100 WBC (Bld)0.3 %Normal0.0-2.0[facility] Comment on above:Performed By: #### ACBC #### Testing performed at [address] [address]DUMADVVYB DIFFNormalAClara Maass Medical CenterComment on above: Performed By: #### ACBC #### Testing performed at [address] [address]Gborfhifchm/100 WBC (Bld)0.9 %Normal0.0-11.0[facility] HospitalComment on above:Performed By: #### ACBC #### Testing performed at [address] [address]Eiurbgtynke (Bld) [#/Vol]0.6 10*3/uLLow1.2-3.4AClara Maass Medical CenterComment on above:Performed By: #### ACBC #### Testing performed at [address] [address]Ganrssntlpt/100 WBC (Bld)17.6 %Low20.0-55.0[facility]Comment on above:Performed By: #### ACBC #### Testing performed at [address] [address]Vzaiqbnym (Bld) [#/Vol]0.5 10*3/uLNormal0.0-0.7AClara Maass Medical CenterComment on above:Performed By: #### ACBC #### Testing performed at [address] [address]Bdmyoynpi/100 WBC (Bld)14.6 %High0.0-10.0[facility] on above:Performed By: #### ACBC #### Testing performed at [address] [address]Supbmffqkwp/100 WBC (Bld)66.6 %Bloqdd03.0-75.0[facility]Comment on above:Performed By: #### ACBC #### Testing performed at [address] [address]Ewtotfuddeh distribution width (RBC) [Ratio]14.2 %Normal 11.5-14.5ABayshore Community Hospital HospitalComment on above:Performed By: #### ACBC #### Testing performed at [address] [address]Jnupnyuvsi (Bld) [Volume fraction]27.6 %Low36.0-48.0[facility]Comment on above:Performed By: #### ACBC #### Testing performed at [address] [address]Wrzqjwlxcy (Bld) [Mass/Vol]9.2 g/dLLow12.0-16.0[facility] HospitalComment on above:Performed By: #### ACBC #### Testing performed at [address] [address]BZF (RBC) [Entitic mass]34.3 uwAeiadw25.0-35.0[facility] HospitalComment on above:Performed By: #### ACBC #### Testing performed at [address] [address]CFWA (RBC) [Mass/Vol]33.4 g/nVJmgtjt70.0-37.0[facility] HospitalComment on above:Performed By: #### ACBC #### Testing performed at [address] [address]PLJ (RBC) [Entitic vol]102.5 mVVprh52.0-100.0[facility]Comment on above:Performed By: #### ACBC #### Testing performed at [address] [address]Xavvlqwt mean volume (Bld) [Entitic vol]7.3 fLLow7.4-11.0[facility]Comment on above:Performed By: #### ACBC #### Testing performed at [address] [address]Mkqykarem (Bld) [#/Vol]165 10*3/bGNqiusr658-204GvgezCapital Health System [facility])Comment on above:Performed By: #### ACBC #### Testing performed at [address] [address]WIE (Bld) [#/Vol]2.69 10*6/uLLow4.0-5.4ACl[facility] Comment on above:Performed By: #### ACBC #### Testing performed at [address] [address]HSM (Bld) [#/Vol]3.6 10*3/uLNormal3.6-11.0[facility]Comment on above:Performed By: #### ACBC #### Testing performed at [address] [address]NGY FASTINGon 41-23-4531Kdzlj gap [Moles/Vol]7 mmol/LNormal [facility]Comment on above:Performed By: #### HERMELINDO ANGELES #### Testing performed at [address] [address]Hmolrmq [Mass/Vol]8.4 mg/dLNormal8.4-10.2AC[facility] Comment on above:Performed By: #### BRIDGETTE ACBC #### Testing performed at [address] [address]Vhhwkkbl [Moles/Vol]106 mmol/ESnkmdp44-351ZissaCapital Health System [facility])Comment on above:Result Comment: Please note: Triglyceride levels of 600mg/dL or higher may positively bias chlorideresults by approximately 2.1 mmol Performed By: #### BRIDGETTE ACBC #### Testing performed at [address] [address]RC3 [Moles/Vol]23 mmol/VErjeqr93-10YwhzcCapital Health System ([facility]) Comment on above:Performed By: #### BRIDGETTE ACBC #### Testing performed at [address] [address]Fcwenzvqod [Mass/Vol]0.50 mg/dLLow0.70-1.20[facility]Comment on above:Performed By: #### HERMELINDO ANGELES #### Testing performed at [address] [address]EDC. GFR, Tpsxinfz118 ml/min/1.73sq.[facility] HospitalComment on above:Performed By: #### HERMELINDO ANGELES #### Testing performed at [address] [address]XSU. GFR,Non Gmopjmqj417 ml/min/1.73sq.[facility]ut[facility] HospitalComment on above:Performed By: #### HERMELINDO ANGELES #### Testing performed at [address] [address]CXP InformationAverage GFR for 70+ years old = 75.NormalCapital Health System [facility])Comment on above:Result Comment: Chronic Kidney disease, GFR = <60. Kidney failure, GFR = <15. The GFR estimate is not adjusted for extreme body surface area or acute process, nor has it been validated for women or ethnic groups other than and .Performed By: #### HERMELINDO ANGELES #### Testing performed at [address] [address]Gsucrzd [Mass/Vol]125 mg/cJUnmt04-407EmkasCapital Health System [facility]) Comment on above:Result Comment: NORMAL <100 mg/dL PREDIABETES 101-126 mg/dL DIABETES 126 mg/dL or higherPerformed By: #### HERMELINDO ANGELES #### Testing performed at [address] [address]Ydtjigcxn [Moles/Vol]3.4 mmol/LLow3.5-5.1AC[facility] Comment on above:Performed By: #### HERMELINDO ANGELES #### Testing performed at [address] [address]Mwrdpt [Moles/Vol]136 mmol/DAlj565-934PuwlvCapital Health System ([facility]) Comment on above:Performed By: #### HERMELINDO ANGELES #### Testing performed at [address] [address]Jrus nitrogen [Mass/Vol]15 mg/dLNormal7-20[facility]Comment on above:Performed By: #### HERMELINDO ANGELES #### Testing performed at [address] [address]VSCge 99-19-9458BURQPHXN BAS0.0 10*3/uLNormal0.0-0.2AClara Maass Medical CenterComment on above:Performed By: #### BRIDGETTE ACJOHN #### Testing performed at [address] [address]LZSVMERB EOS0.0 10*3/uLNormal0.0-0.7AC[facility] Comment on above:Performed By: #### HERMELINDO ANGELES #### Testing performed at [address] [address]XAHCGDID NEUTROPHIL COUNT4.1 10*3/uLNormal1.4-6.5AClara Maass Medical CenterComment on above:Performed By: #### HERMELINDO ANGELES #### Testing performed at [address] [address]Qfgrzznwe/100 WBC (Bld)0.1 %Normal0.0-2.0[facility] Comment on above:Performed By: #### HERMELINDO ANGELES #### Testing performed at [address] [address]OTPYOHAKR DIFFNormalAClara Maass Medical CenterComment on above: Performed By: #### BRIDGETTE ACJOHN #### Testing performed at [address] [address]Lldwxaitacb/100 WBC (Bld)0.0 %Normal0.0-11.0[facility]Comment on above:Performed By: #### HERMELINDO ANGELES #### Testing performed at [address] [address]Iaukqaxmjmb distribution width (RBC) [Ratio]14.3 %Normal 11.5-14.5AClara Maass Medical CenterComment on above:Performed By: #### BRIDGETTE ACJOHN #### Testing performed at [address] [address]Ikjskztuqj (Bld) [Volume fraction]30.1 %Low36.0-48.0[facility] HospitalComment on above:Performed By: #### BMPF, ACBC #### Testing performed at [address] [address]Gkdiosbpjk (Bld) [Mass/Vol]10.3 g/dLLow12.0-16.0[facility] HospitalComment on above:Performed By: #### BMPF, ACBC #### Testing performed at [address] [address]Lhubdvbjivg (Bld) [#/Vol]0.4 10*3/uLLow1.2-3.4AClara [facility] CenterCombeaumont hospital on above:Performed By: #### BMPF, ACBC #### Testing performed at [address] [address]Vtdchvqnepz/100 WBC (Bld)8.1 %Low20.0-55.0[facility] HospitalComment on above:Performed By: #### BMPF, ACBC #### Testing performed at [address] [address]EZD (RBC) [Entitic mass]34.6 iqTdxiwc99.0-35.0[facility] on above:Performed By: #### BMPF, ACBC #### Testing performed at [address] [address]ANSN (RBC) [Mass/Vol]34.2 g/fJLhjmso91.0-37.0[facility] HospitalComment on above:Performed By: #### BMPF, ACBC #### Testing performed at [address] [address]GIA (RBC) [Entitic vol]101.3 qIWoxs86.0-100.0[facility] on above:Performed By: #### BMPF, ACBC #### Testing performed at [address] [address]Kzbxgsaez (Bld) [#/Vol]0.4 10*3/uLNormal0.0-0.7ABayshore Community Hospital HospitalComment on above:Performed By: #### HERMELINDO ANGELES #### Testing performed at [address] [address]Ulbnlymgm/100 WBC (Bld)8.1 %Normal0.0-10.0[facility] HospitalComment on above:Performed By: #### HERMELINDO ANGELES #### Testing performed at [address] [address]Jvsbnwupaoi/100 WBC (Bld)83.7 %High37.0-75.0[facility] HospitalComment on above:Performed By: #### HERMELINDO ANGELES #### Testing performed at [address] [address]Gcuwkewy mean volume (Bld) [Entitic vol]7.3 fLLow7.4-11.0[facility] HospitalComment on above:Performed By: #### HERMELINDO ANGELES #### Testing performed at [address] [address]Jvzlclfxk (Bld) [#/Vol]181 10*3/sORpiwyl800-550Twicm Ontario HospitalComment on above:Performed By: #### HERMELINDO ANGELES #### Testing performed at [address] [address]NKZ (Bld) [#/Vol]2.97 10*6/uLLow4.0-5.4ABayshore Community Hospital Hospital Comment on above:Performed By: #### HERMELINDO ANGELES #### Testing performed at [address] [address]SJJ (Bld) [#/Vol]4.9 10*3/uLNormal3.6-11.0[facility] HospitalComment on above:Performed By: #### HERMELINDO ANGELES #### Testing performed at [address] [address]BEI, EDIF, PLATELETon [id number] BASOPHIL COUNT0.0 10*3/uL0.0 - 0.2 10*3/[facility] SystemBasophils/100 WBC (Bld)0.3 %0.0 - 2.0 %[facility]c HealthDifferential cell count method Nom (Bld)AUTO DIFF%[facility]c HealthEosinophils (Bld) [#/Vol]0.1 10*3/uL0.0 - 0.7 10*3/[facility] HospitalEosinophils/100 WBC (Bld)1.8 %0.0 - 11.0 %[facility]c HealthErythrocyte distribution width (RBC) [Ratio]14.5 %11.5 - 14.5 %[facility] HealthHematocrit (Bld) [Volume fraction]34.7 %Low36.0 - 48.0 %[facility] HealthHemoglobin (Bld) [Mass/Vol]11.3 g/dLUK HealthcareInterpretation and review of laboratory resultsAbnormSt. Elizabeth HospitalLymphocytes (Bld) [#/Vol]0.4 10*3/uLLow1.2 - 3.4 10*3/[facility] HospitalLymphocytes/100 WBC (Bld)11.1 %Low 20.0 - 55.0 %[facility]c HealthMCH (RBC) [Entitic mass]33.4 pg26.0 - 35.0 PG Uc HealthMCHC (RBC) [Mass/Vol]32.4 g/dLUc HealthMCV (RBC) [Entitic vol]103.1 fLUK HealthcareMonocytes (Bld) [#/Vol]0.4 10*3/uL 0.0 - 0.7 10*3/[facility] HospitalMonocytes/100 WBC (Bld)11.1 %High0.0 - 10.0 %[facility]c HealthNeutrophils (Bld) [#/Vol]2.6 10*3/uL1.4 - 6.5 10*3/[facility] HospitalNeutrophils/100 WBC (Bld)75.7 %High37.0 - 75.0 %[facility] Platelet mean volume (Bld) [Entitic vol]7.2 fLUK HealthcarePlatelets (Bld) [#/Vol]175 10*3/uL130 - 400 10*3/[facility] HospitalRBC (Bld) [#/Vol] 3.37 10*6/uLLow4.0 - 5.4 10*6/[facility] HospitalWBC (Bld) [#/Vol]3.5 10*3/uL Low3.6 - 11.0 10*3/[facility] Greene MemorialCOMPREHENSIVE METABOLIC PANELon 86-71-8966Stgymdc [Mass/Vol]3.8 G/dl3.5 - 5.0 G/dlUc HealthAlbumin/Globulin [Mass ratio]1.7 {ratio}RATIOUc HealthALP [Catalytic activity/Vol]61 U/[facility] Health PrebleALT [Catalytic activity/Vol]26 U/LNINFUc HealthAST [Catalytic activity/Vol]36 U/[facility] Bilirubin [Mass/Vol]0.7 mg/dLUc HealthCalcium [Mass/Vol]9.4 mg/dLUc HealthChloride [Moles/Vol]104 mmol/[facility] Health PrebleComment on above: Please note: Triglyceride levels of 600mg/dL or higher may positively bias chloride results by approximately 2.1 mmolCO2 [Moles/Vol]28 mmol/[facility] PrebleCreatinine [Mass/Vol]0.60 mg/dLUK HealthcareGFR COMMENTAverage GFR for 70+ years old = 75.Uc HealthComment on above:Chronic Kidney disease, GFR = <60. Kidney failure, GFR = <15. The GFR estimate is not adjusted for extreme body surface area or acute process, nor has it been validated for women or ethnic groups other than and . GFR/1.73 sq M.predicted among blacks MDRD (S/P/Bld) [Vol rate/Area]127 mL/min/{1.73_m2}ml/min/1.73sq.mABlanchard Valley Health System Blanchard Valley HospitalGFR/1.73 sq M.predicted among non-blacks MDRD (S/P/Bld) [Vol rate/Area]105 mL/min/{1.73_m2}ml/min/1.73sq.m Uc HealthGlucose post fast [Mass/Vol]91 mg/dLUc Health Comment on above: NORMAL <100 mg/dL PREDIABETES 101-126 mg/dL DIABETES 126 mg/dL or higher Interpretation and review of laboratory resultsAbnormSt. Elizabeth Hospital Potassium [Moles/Vol]3.9 mmol/[facility] PrebleProtein [Mass/Vol]6.1 g/dLLow [facility]-Fairhillodium [Moles/Vol]135 mmol/LLowABlanchard Valley Health System Blanchard Valley HospitalUrea nitrogen [Mass/Vol]12 mg/dLFirelands Regional Medical CenterECGOrdered By: Delgado Huffman on [id number] Valley Health [facility] Work Phone: HEMOGLOBIN A1Con [id number] [Mass/Vol]100 mg/dL Uc HealthHbA1c (Bld) [Mass fraction]5.1 %0 - 6 %[facility] Comment on above: NORMAL <5.7% PREDIABETES 5.7-6.4% DIABETES 6.5% OR HIGHER [facility]c HealthPROTIME-INRon [id number] Coag (PPP) [Relative time]0.94 {INR}0.85 - 1.10ABlanchard Valley Health System Blanchard Valley HospitalComment on above: 2.0-3.0 THERAPEUTIC RANGE 2.5-3.5 MECHANICAL VALVE RANGE PT Coag (PPP) [Time]12.7 [facility] RehabilitationCREEN: MRSA ONLY, NARES (ISOLATION SCREEN)on [id number] isol Org specific cx Ql (Nose) NegativeNEGATIVESelect Medical Specialty Hospital - Cleveland-FairhillTAPHYOCOCCUS AUREUS BY PCRNegativeNEGATIVE Uc HealthComment on above:TESTING PERFORMED BY [facility] URINALYSIS, MACROon 13-18-5154Hndljydsi Ql (U)NegativeNEGATIVEUc HealthClarity (U)CLEARCLEARABlanchard Valley Health System Blanchard Valley HospitalColor (U)YELLOWYELLOWUc HealthGlucose Test strip (U) [Mass/Vol]NegativeNEGATIVE mg/dlUc Health Hemoglobin Ql (U)NegativeNEGUniversity Hospitals Samaritan Medical CenterKetones (U) [Mass/Vol] NegativeNEGATIVE mg/dlUc HealthLeukocyte esterase Test strip Ql (U) NegativeNEGATIVEUc HealthNitrite Ql (U)NegativeNEGUniversity Hospitals Samaritan Medical CenterpH (U)7.0 [pH]5.0 - 7.0Uc HealthProtein Ql (U)NegativeNEGATIVE mg/dlSelect Medical Specialty Hospital - [facility]-Fairhillpecific gravity (U) [Rel density]1.0151.010 - 1.025 Uc HealthUrobilinogen (U) [Mass/Vol]0.2 mg/dLFirelands Regional Medical CenterC3 and C4 COMPLEMENTon 54-40-6022Jyatpaitmv C3, Cdfca779 mg/dL Pmsacw16-648Mur St[facility] HospitalComment on above:Performed By: #### LIVER, LIPID, TSH, FT3, T4 #### [facility] [address] [place] [address] Dr. Frank Fierro C4, Serum36 mg/fDXwmavs70-50ZrjCleveland Clinic Medina Hospital Comment on above:Performed By: #### LIVER, LIPID, TSH, FT3, T4 #### [facility] [address] [place] [address] Dr. Frank HuddlestonPLEMENT TOTAL (CH50)on 38-36-8629Snnukoaori, Total (CH50)>60 Normal>[address] [facility] HospitalComment on above:Result Comment: Age Male Female 1 - 30 [...] table above to determine out of range values.Performed By: #### CH50T #### [facility] [address] [place] [address] Dr. Frank Vazquez AUTO DIFFon 67-30-2657DZAJ #0.0 103/ulNormal0.0-0.1The St. [facility] HospitalComment on above:Performed By: #### CBC #### [facility] [address] [place] [address] Dr. Frank HillsBasophils/100 WBC (Bld)0.3 %Normal0.2-2.0[facility] Comment on above:Performed By: #### CBC #### [facility] [address] [address] [address] Frank Cali #0.1 103/ulNormal0.0-0.7The St. [facility] HospitalComment on above: Performed By: #### CBC #### [facility] [address] [address] [address] Frank Patriciaosinophils/100 WBC (Bld)1.6 %Normal0.9-7.0The [facility] Comment on above:Performed By: #### CBC #### [facility] [address] [place] [address] Dr. Frank Patriciarythrocyte distribution width (RBC) [Ratio]13.6 %Lyxbfr87.0-15.[address] [facility] HospitalComment on above:Performed By: #### CBC #### [facility] [address] [place] [address] Dr. Frank HillsHematocrit (Bld) [Volume fraction]36.4 %Llpcgp56.0-48.0The [facility] HospitalComment on above:Performed By: #### CBC #### [facility] [address] [place] [address] Dr. Frank HillsHemoglobin (Bld) [Mass/Vol]11.8 g/dLCritically low12.0-16.0The [facility] HospitalComment on above:Performed By: #### CBC #### [facility] [address] [place] [address] Dr. Frank Smith #0.01 10e3/ulNormal0.00-0.03The St. [facility] HospitalComment on above:Performed By: #### CBC #### [facility] [address] [place] [address] Dr. Frank Smith %0.3 %Normal0.0-0.5The St. [facility] HospitalComment on above: Performed By: #### CBC #### [facility] [address] [place] [address] Dr. Frank Agarwal #0.6 103/ulCritically low1.2-3.8The [facility] Comment on above:Performed By: #### CBC #### [facility] [address] [place] [address] Dr. Frank Alfredmphocytes/100 WBC (Bld)15.3 %Critically low20.5-60.0The [facility] HospitalComment on above:Performed By: #### CBC #### [facility] [address] [place] [address] Dr. Frank BarkerUAL DIFF REQNONormalThe St. Francis HospitalComment on above: Performed By: #### CBC #### [facility] [address] [place] [address] Dr. Frank Doran (RBC) [Entitic mass]33.2 azFhuryb01.7-34.0The St[facility] HospitalComment on above:Performed By: #### CBC #### [facility] [address] [place] [address] Dr. Frank Doran (RBC) [Mass/Vol]32.4 g/lUDgyilm15.9-35.2The [facility] Hospitalment on above:Performed By: #### CBC #### [facility] [address] [place] [address] Dr. Frank Doran (RBC) [Entitic vol]102.5 fLCritically high81.0-99.0The [facility] Hospitalment on above:Performed By: #### CBC #### [facility] [address] [place] [address] Dr. Frank Ponce #0.5 103/ulNormal0.3-0.8The [facility] Hospitalment on above:Performed By: #### CBC #### [facility] [address] [place] [address] Dr. Frank Babinocytes/100 WBC (Bld)12.5 %Critically high1.7-12.0The [facility] on above:Performed By: #### CBC #### [facility] [address] [place] [address] Dr. Frank Redding #2.6 103/ulNormal1.4-6.5The St. [facility] HospitalComment on above:Performed By: #### CBC #### [facility] [address] [place] [address] Dr. Frank Mooneyutrophils/100 WBC (Bld)70.0 %Ipfhjm93.0-75.0The [facility] HospitalCombeaumont hospital on above:Performed By: #### CBC #### [facility] [address] [place] [address] Dr. Frank HillsPlatelet mean volume (Bld) [Entitic vol]9.0 fLCritically low 9.5-13.5The St. [facility] HospitalComment on above:Performed By: #### CBC #### [facility] [address] [place] [address] Dr. Frank HillsPLT192 103/abMfkscg862-536Bal St. Francis HospitalComment on above: Performed By: #### CBC #### [facility] [address] [place] [address] Dr. Frank HillsRBC3.55 106/ulCritically low4.20-5.40The [facility]. [facility] HospitalComment on above:Performed By: #### CBC #### [facility] [address] [place] [address] Dr. Frank HillsWBC3.7 103/ulCritically low4.0-11.0The [facility] on above:Performed By: #### CBC #### [facility] [address] [place] [address] Dr. Frank HillsPROF 14(COMP METB)on 40-21-1262Kvlmwyt [Mass/Vol]3.7 g/dLNormal 3.4-5.0The St. [facility] HospitalComment on above:Performed By: #### LIVER, LIPID, TSH, FT3, T4 #### [facility] [address] [place] [address] Dr. Frank HillsAlbumin/Globulin [Mass ratio]1.2 {ratio}NormalThe [facility] on above:Performed By: #### LIVER, LIPID, TSH, FT3, T4 #### [facility] [address] [place] [address] Dr. Frank Chung [Catalytic activity/Vol]66 U/KLizcnr35-122Cbx St. [facility] HospitalComment on above:Performed By: #### LIVER, LIPID, TSH, FT3, T4 #### [facility] [address] [place] [address] Dr. Frank Jung [Catalytic activity/Vol]29 U/MHyvisk71-16Ira St. [facility] HospitalComment on above:Performed By: #### LIVER, LIPID, TSH, FT3, T4 #### [facility] [address] [place] [address] Dr. Frank Gan gap [Moles/Vol]11.6 mmol/LNormalCleveland Clinic [facility]ina Hospital Comment on above:Performed By: #### LIVER, LIPID, TSH, FT3, T4 #### [facility] [address] [place] [address] Dr. Frank Baker [Catalytic activity/Vol]27 U/DTymhik48-65Ngf St. [facility] HospitalComment on above:Performed By: #### LIVER, LIPID, TSH, FT3, T4 #### [facility] [address] [place] [address] Dr. Frank HillsBilirubin [Mass/Vol]0.7 mg/dLNormal0.2-1.0The [facility] Comment on above:Performed By: #### LIVER, LIPID, TSH, FT3, T4 #### [facility] [address] [place] [address] Dr. Frank HillsCalcium [Mass/Vol]9.1 mg/dLNormal8.5-10.1[facility] Comment on above:Performed By: #### LIVER, LIPID, TSH, FT3, T4 #### [facility] [address] [place] [address] Dr. Frank HillsChloride [Moles/Vol]105 mmol/FUoehae12-780Rbe [facility] Comment on above:Performed By: #### LIVER, LIPID, TSH, FT3, T4 #### [facility] [address] [place] [address] Dr. Frank HillsCO2 [Moles/Vol]29.5 mmol/QBudojw92.0-32.0The [facility] Comment on above:Performed By: #### LIVER, LIPID, TSH, FT3, T4 #### [facility] [address] [place] [address] Dr. Frank HillsCreatinine [Mass/Vol]0.57 mg/dLNormal0.55-1.02The St. [facility] HospitalComment on above:Performed By: #### LIVER, LIPID, TSH, FT3, T4 #### [facility] [address] [place] [address] Dr. Frank PatriciaGFR-AF PITCAIRN ISLANDER>60Normal>=60The St. [facility] HospitalComment on above:Performed By: #### LIVER, LIPID, TSH, FT3, T4 #### [facility] [address] [place] [address] Dr. Frank PatriciaGFR-NON AF PITCAIRN ISLANDER>60Normal>=60The [facility]. [facility] HospitalComment on above:Performed By: #### LIVER, LIPID, TSH, FT3, T4 #### [facility] [address] [place] [address] Dr. Frank HillsGlobulin (S) [Mass/Vol]3.1 g/dLNormalThe St. Francis HospitalComment on above:Performed By: #### LIVER, LIPID, TSH, FT3, T4 #### [facility] [address] [place] [address] Dr. Frank HillsGlucose [Mass/Vol]95 mg/eDZapsob47-609Guj [facility] Comment on above:Performed By: #### LIVER, LIPID, TSH, FT3, T4 #### [facility] [address] [place] [address] Dr. Frank HillsPotassium [Moles/Vol]5.1 mmol/LNormal3.5-5.1The [facility] Comment on above:Performed By: #### LIVER, LIPID, TSH, FT3, T4 #### [facility] [address] [place] [address] Dr. Frank HillsProtein [Mass/Vol]6.8 g/dLNormal6.4-8.2The [facility] Comment on above:Performed By: #### LIVER, LIPID, TSH, FT3, T4 #### [facility] [address] [address] [address] Frank Wolfedium [Moles/Vol]141 mmol/GVluffk897-760Eck [facility] Comment on above:Performed By: #### LIVER, LIPID, TSH, FT3, T4 #### [facility] [address] [address] [address] Frank Noble nitrogen [Mass/Vol]13.0 mg/dLNormal7.0-18.0The St. [facility] HospitalComment on above:Performed By: #### LIVER, LIPID, TSH, FT3, T4 #### [facility] [address] [place] [address] Dr. Frank Noble nitrogen/Creatinine [Mass ratio]22.8 mg/mgNormalThe St. Francis HospitalComment on above:Performed By: #### LIVER, LIPID, TSH, FT3, T4 #### [facility] [address] [place] [address] Dr. Frank GriffinD RATE WESTERGRENon 23-01-6803BVN RATE9 mm/hrNormal<=30[facility] HospitalCombeaumont hospital on above:Performed By: #### LIVER, LIPID, TSH, FT3, T4 #### [facility] [address] [place] [address] Dr. Frank Gray RANDOM W/MICROSCOPICon 83-00-7718DEWJPLJNMMAS SEENNormalNONE SEENCleveland Clinic Medina HospitalComment on above:Performed By: #### LIVER, LIPID, TSH, FT3, T4 #### [facility] [address] [place] [address] Dr. Frank HillsBilirubin Ql (U)NegativeNormalNEGATIVECleveland Clinic Medina Hospital Comment on above:Performed By: #### LIVER, LIPID, TSH, FT3, T4 #### [facility] [address] [place] [address] Dr. Frank HillsCASTDIANA SEENNormalNONE SEENCleveland Clinic Medina HospitalComment on above:Performed By: #### LIVER, LIPID, TSH, FT3, T4 #### [facility] [address] [address] [address] Frank Costaarity (U)CLEARNormalCLEARCleveland Clinic Medina HospitalComment on above: Performed By: #### LIVER, LIPID, TSH, FT3, T4 #### [facility] [address] [address] [address] Frank Cornell (U)LT. YELLOWNormalYELLOWCleveland Clinic Medina HospitalComment on above:Performed By: #### LIVER, LIPID, TSH, FT3, T4 #### [facility] [address] [address] [address] Frank HillsCrystals LM Nom (Urine sed)NONE SEENNormalNONE SEENCleveland Clinic Medina HospitalComment on above:Performed By: #### LIVER, LIPID, TSH, FT3, T4 #### [facility] [address] [place] [address] Dr. Marie ChangEpithelial cells LM Ql (Urine sed)RARENormalNONE SEEN /RARECleveland Clinic Medina HospitalComment on above:Performed By: #### LIVER, LIPID, TSH, FT3, T4 #### [facility] [address] [place] [address] Dr. Frank HillsGlucose Ql (U)NegativeNormalNEGATIVECleveland Clinic Medina HospitalComment on above:Performed By: #### LIVER, LIPID, TSH, FT3, T4 #### [facility] [address] [address] [address] Frank HillsHemoglobin Ql (U)NegativeNormalNEGATIVECleveland Clinic Medina Hospital Comment on above:Performed By: #### LIVER, LIPID, TSH, FT3, T4 #### [facility] [address] [place] [address] Dr. Frank HillsKetones Ql (U)NegativeNormalNEGATIVECleveland Clinic Medina HospitalComment on above:Performed By: #### LIVER, LIPID, TSH, FT3, T4 #### [facility] [address] [place] [address] Dr. Frank HillsLEUKOCYTESNegativeNormalNEGATIVEThe St. Francis HospitalComment on above:Performed By: #### LIVER, LIPID, TSH, FT3, T4 #### [facility] [address] [place] [address] Dr. Frank SchmidtCOUSNONCompa SEENNormalNONE SEENThe St. Francis HospitalComment on above:Performed By: #### LIVER, LIPID, TSH, FT3, T4 #### [facility] [address] [place] [address] Dr. Frank Pricetrite Ql (U)NegativeNormalNEGATIVEThe St. Francis HospitalComment on above:Performed By: #### LIVER, LIPID, TSH, FT3, T4 #### [facility] [address] [place] [address] Dr. Frank HillspH (U)6.5 [pH]Normal5-9The St. Francis HospitalComment on above: Performed By: #### LIVER, LIPID, TSH, FT3, T4 #### [facility] [address] [place] [address] Dr. Frank Nathan SEENAbnormal0-2The St. Francis HospitalComment on above: Performed By: #### LIVER, LIPID, TSH, FT3, T4 #### [facility] [address] [place] [address] Dr. Frank HillsSPEC GRAVITY1.969Kezvbo7.005-<=1.025The St. Francis HospitalComment on above:Performed By: #### LIVER, LIPID, TSH, FT3, T4 #### [facility] [address] [place] [address] Dr. Frank Gray PROTEINNegativeNormalNEGATIVE/ TRACEThe [facility] Comment on above:Performed By: #### LIVER, LIPID, TSH, FT3, T4 #### [facility] [address] [place] [address] Dr. Frank Villeda Qn (U)0.2 {Flaquita'U}/dLNormal0.2 - 1.0The [facility]. [facility] HospitalComment on above:Performed By: #### LIVER, LIPID, TSH, FT3, T4 #### [facility] [address] [address] [address] Frank BarajasBCNONCompa SEENNormalNONE SEENThe St. Francis HospitalComment on above: Performed By: #### LIVER, LIPID, TSH, FT3, T4 #### [facility] [address] [address] [address] Frank HillsC3 and C4 COMPLEMENTon 56-52-3145Gmkjcbyrzf C3, Nlyuf472 mg/dL Qzmfgp24-297Wzf St. Francis HospitalComment on above:Performed By: #### LIVER, LIPID, TSH, FT3, T4 #### [facility] [address] [address] [address] Frank HillsComplement C4, Serum33 mg/gVWboctx56-74Nlb [facility] Comment on above:Performed By: #### LIVER, LIPID, TSH, FT3, T4 #### [facility] [address] [place] [address] Dr. Frank HuddlestonPLEMENT TOTAL (CH50)on 09-11-0431Vagskmbjis, Total (CH50)>60 Normal>41[address] Francis HospitalComment on above:Result Comment: Age Male Female 1 - 30 [...] table above to determine out of range values.Performed By: #### LIVER, LIPID, TSH, FT3, T4 #### [facility] [address] [place] [address] Dr. Frank HillsCBPily AUTO DIFFon 29-38-1088HSHB #0.0 103/ulNormal0.0-0.1The St. [facility] HospitalComment on above:Performed By: #### LIVER, LIPID, TSH, FT3, T4 #### [facility] [address] [place] [address] Dr. Frank HillsBasophils/100 WBC (Bld)1.0 %Normal0.2-2.0The [facility] Comment on above:Performed By: #### LIVER, LIPID, TSH, FT3, T4 #### [facility] [address] [place] [address] Dr. Frank Cali #0.1 103/ulNormal0.0-0.7The [facility]. [facility] HospitalComment on above: Performed By: #### LIVER, LIPID, TSH, FT3, T4 #### [facility] [address] [place] [address] Dr. Frank Patriciaosinophils/100 WBC (Bld)1.8 %Normal0.9-7.0The [facility] Comment on above:Performed By: #### LIVER, LIPID, TSH, FT3, T4 #### [facility] [address] [place] [address] Dr. Frank Patriciarythrocyte distribution width (RBC) [Ratio]13.8 %Aktluz20.0-15.[address] [facility] HospitalComment on above:Performed By: #### LIVER, LIPID, TSH, FT3, T4 #### [facility] [address] [place] [address] Dr. Frank HillsHematocrit (Bld) [Volume fraction]36.3 %Hovdxx69.0-48.0The St. Francis HospitalComment on above:Performed By: #### LIVER, LIPID, TSH, FT3, T4 #### [facility] [address] [place] [address] Dr. Frank HillsHemoglobin (Bld) [Mass/Vol]11.9 g/dLCritically low12.0-16.0The [facility]. [facility] HospitalComment on above:Performed By: #### LIVER, LIPID, TSH, FT3, T4 #### [facility] [address] [place] [address] Dr. Frank Smith #0.02 10e3/ulNormal0.00-0.03The [facility]. [facility] HospitalComment on above:Performed By: #### LIVER, LIPID, TSH, FT3, T4 #### [facility] [address] [place] [address] Dr. Frank Smith %0.5 %Normal0.0-0.5The [facility] HospitalComment on above: Performed By: #### LIVER, LIPID, TSH, FT3, T4 #### [facility] [address] [place] [address] Dr. Frank Agarwal #0.7 103/ulCritically low1.2-3.8The [facility] Comment on above:Performed By: #### LIVER, LIPID, TSH, FT3, T4 #### [facility] [address] [place] [address] Dr. Frank Gonzalezhocytes/100 WBC (Bld)18.0 %Critically low20.5-60.0The [facility]. [facility] HospitalComment on above:Performed By: #### LIVER, LIPID, TSH, FT3, T4 #### [facility] [address] [place] [address] Dr. Frank BarkerUAL DIFF REQNONormalThe St. Francis HospitalComment on above: Performed By: #### LIVER, LIPID, TSH, FT3, T4 #### [facility] [address] [place] [address] Dr. Frank Doran (RBC) [Entitic mass]34.2 pgCritically high26.7-34.0The [facility]. [facility] HospitalComment on above:Performed By: #### LIVER, LIPID, TSH, FT3, T4 #### [facility] [address] [place] [address] Dr. Frank Doran (RBC) [Mass/Vol]32.8 g/sEOebydr87.9-35.2The [facility]. [facility] HospitalComment on above:Performed By: #### LIVER, LIPID, TSH, FT3, T4 #### [facility] [address] [place] [address] Dr. Frank Doran (RBC) [Entitic vol]104.3 fLCritically high81.0-99.0The St. [facility] HospitalComment on above:Performed By: #### LIVER, LIPID, TSH, FT3, T4 #### [facility] [address] [place] [address] Dr. Frank Ponce #0.4 103/ulNormal0.3-0.8The [facility] HospitalComment on above:Performed By: #### LIVER, LIPID, TSH, FT3, T4 #### [facility] [address] [place] [address] Dr. Frank Babinocytes/100 WBC (Bld)10.0 %Normal1.7-12.0The [facility] Comment on above:Performed By: #### LIVER, LIPID, TSH, FT3, T4 #### [facility] [address] [place] [address] Dr. Frank Redding #2.7 103/ulNormal1.4-6.5The [facility]. [facility] HospitalComment on above:Performed By: #### LIVER, LIPID, TSH, FT3, T4 #### [facility] [address] [place] [address] Dr. Frank Mooneyutrophils/100 WBC (Bld)68.7 %Yemowd63.0-75.0The [facility] HospitalComment on above:Performed By: #### LIVER, LIPID, TSH, FT3, T4 #### [facility] [address] [place] [address] Dr. Frank León mean volume (Bld) [Entitic vol]9.4 fLCritically low 9.5-13.5The St. [facility] HospitalComment on above:Performed By: #### LIVER, LIPID, TSH, FT3, T4 #### [facility] [address] [place] [address] Dr. Frank HillsPLT187 103/hhMkaxlk348-246Eec St. [facility] HospitalComment on above: Performed By: #### LIVER, LIPID, TSH, FT3, T4 #### [facility] [address] [place] [address] Dr. Frank HillsRBC3.48 106/ulCritically low4.20-5.40The [facility] Hospitalment on above:Performed By: #### LIVER, LIPID, TSH, FT3, T4 #### [facility] [address] [place] [address] Dr. Frank HillsWBC3.9 103/ulCritically low4.0-11.0The [facility] Hospitalment on above:Performed By: #### LIVER, LIPID, TSH, FT3, T4 #### [facility] [address] [place] [address] Dr. Frank Blount 14(COMP METB)on 26-37-6967Tmezivu [Mass/Vol]3.9 g/dLNormal 3.4-5.0The [facility] HospitalComment on above:Performed By: #### LIVER, LIPID, TSH, FT3, T4 #### [facility] [address] [place] [address] Dr. Frank HillsAlbumin/Globulin [Mass ratio]1.3 {ratio}NormalThe [facility] on above:Performed By: #### LIVER, LIPID, TSH, FT3, T4 #### [facility] [address] [place] [address] Dr. Frank Chung [Catalytic activity/Vol]63 U/NXjgnei43-813Ych [facility] on above:Performed By: #### LIVER, LIPID, TSH, FT3, T4 #### [facility] [address] [place] [address] Dr. Frank Jung [Catalytic activity/Vol]27 U/UOdvjiy28-99Elv [facility] on above:Performed By: #### LIVER, LIPID, TSH, FT3, T4 #### [facility] [address] [place] [address] Dr. Frank Gan gap [Moles/Vol]8.4 mmol/LNormalThe [facility] Hospitalment on above:Performed By: #### LIVER, LIPID, TSH, FT3, T4 #### [facility] [address] [place] [address] Dr. Frank Baker [Catalytic activity/Vol]31 U/WBcvdqs05-89Wig [facility] Hospitalment on above:Performed By: #### LIVER, LIPID, TSH, FT3, T4 #### [facility] [address] [place] [address] Dr. Yilan ChangBilirubin [Mass/Vol]0.7 mg/dLNormal0.2-1.0The [facility] Comment on above:Performed By: #### LIVER, LIPID, TSH, FT3, T4 #### [facility] [address] [place] [address] Dr. Frank HillsCalcium [Mass/Vol]9.0 mg/dLNormal8.5-10.1The [facility] Comment on above:Performed By: #### LIVER, LIPID, TSH, FT3, T4 #### [facility] [address] [place] [address] Dr. Frank HillsChloride [Moles/Vol]102 mmol/VQbkrnx61-532Jxh [facility] Comment on above:Performed By: #### LIVER, LIPID, TSH, FT3, T4 #### [facility] [address] [place] [address] Dr. Frank HillsCO2 [Moles/Vol]30.8 mmol/PKfqyou98.0-32.0[facility] Comment on above:Performed By: #### LIVER, LIPID, TSH, FT3, T4 #### [facility] [address] [place] [address] Dr. Frank HillsCreatinine [Mass/Vol]0.62 mg/dLNormal0.55-1.02[facility] HospitalComment on above:Performed By: #### LIVER, LIPID, TSH, FT3, T4 #### [facility] [address] [place] [address] Dr. Frank PatriciaGFR-AF PITCAIRN ISLANDER>60Normal>=60The [facility]. [facility] HospitalComment on above:Performed By: #### LIVER, LIPID, TSH, FT3, T4 #### [facility] [address] [place] [address] Dr. Frank Rodriguez-NON AF PITCAIRN ISLANDER>60Normal>=60The [facility] HospitalComment on above:Performed By: #### LIVER, LIPID, TSH, FT3, T4 #### [facility] [address] [place] [address] Dr. Yilan ChangGlobulin (S) [Mass/Vol]3.1 g/dLNormLicking Memorial HospitalComment on above:Performed By: #### LIVER, LIPID, TSH, FT3, T4 #### [facility] [address] [address] [address] Frank HillsGlucose [Mass/Vol]102 mg/iYFehaxy63-903ZchC[facility] Comment on above:Performed By: #### LIVER, LIPID, TSH, FT3, T4 #### [facility] [address] [address] [address] Frank HillsPotassium [Moles/Vol]4.2 mmol/LNormal3.5-5.1The [facility] Comment on above:Performed By: #### LIVER, LIPID, TSH, FT3, T4 #### [facility] [address] [place] [address] Dr. Frank HillsProtein [Mass/Vol]7.0 g/dLNormal6.4-8.2The [facility] Comment on above:Performed By: #### LIVER, LIPID, TSH, FT3, T4 #### [facility] [address] [place] [address] Dr. Frank HillsSodium [Moles/Vol]137 mmol/XXitwvq935-922XduC[facility] Clinic [facility] Hospital Comment on above:Performed By: #### LIVER, LIPID, TSH, FT3, T4 #### [facility] [address] [place] [address] Dr. Frank HillsUrea nitrogen [Mass/Vol]15.0 mg/dLNormal7.0-18.0The [facility] HospitalComment on above:Performed By: #### LIVER, LIPID, TSH, FT3, T4 #### [facility] [address] [address] [address] Frank HillsUrea nitrogen/Creatinine [Mass ratio]24.2 mg/mgNoAccess Hospital DaytonComment on above:Performed By: #### LIVER, LIPID, TSH, FT3, T4 #### [facility] [address] [place] [address] Dr. Frank Díaz RATE [facility] [id number] RATE8 mm/hrNormal<=30The [facility] Hospitalment on above:Performed By: #### LIVER, LIPID, TSH, FT3, T4 #### [facility] [address] [address] [address] Frank Gray RANDOM W/MICROSCOPICon [id number] SEENNormalNONE SEENNewark Hospital on above:Performed By: #### LIVER, LIPID, TSH, FT3, T4 #### [facility] [address] [address] [address] Frank Padgett Ql (U)NegativeNormalNEGATIVEThe [facility] Comment on above:Performed By: #### LIVER, LIPID, TSH, FT3, T4 #### [facility] [address] [address] [address] Frank Elam SEENNormalNONE SEENNewark Hospital on above:Performed By: #### LIVER, LIPID, TSH, FT3, T4 #### [facility] [address] [address] [address] Frank Costaarity (U)CLEARNormalCLEARCleveland Clinic Medina HospitalCombeaumont hospital on above: Performed By: #### LIVER, LIPID, TSH, FT3, T4 #### [facility] [address] [address] [address] Frank Cornell (U)LT. YELLOWNormalYELLOWCleveland Clinic Medina HospitalComment on above:Performed By: #### LIVER, LIPID, TSH, FT3, T4 #### [facility] [address] [address] [address] Frank HillsCrystals LM Nom (Urine sed)NONE SEENNormalNONE SEENNewark Hospital on above:Performed By: #### LIVER, LIPID, TSH, FT3, T4 #### [facility] [address] [address] [address] Marie ChangEpithelial cells LM Ql (Urine sed)NONE SEENNormalNONE SEEN /RARE The [facility] HospitalCombeaumont hospital on above:Performed By: #### LIVER, LIPID, TSH, FT3, T4 #### [facility] [address] [address] [address] Frank HillsGlucose Ql (U)NegativeNormalNEGATIVECleveland Clinic Medina HospitalComment on above:Performed By: #### LIVER, LIPID, TSH, FT3, T4 #### [facility] [address] [address] [address] Frank HillsHemoglobin Ql (U)NegativeNormalNEGATIVEThe [facility] on above:Performed By: #### LIVER, LIPID, TSH, FT3, T4 #### [facility] [address] [address] [address] Frank HillsKetones Ql (U)NegativeNormalNEGATIVECleveland Clinic Medina HospitalComment on above:Performed By: #### LIVER, LIPID, TSH, FT3, T4 #### [facility] [address] [address] [address] Frank HillsLEUKOCYTESNegativeNormalNEGATIVEThe St. [facility] HospitalComment on above:Performed By: #### LIVER, LIPID, TSH, FT3, T4 #### [facility] [address] [address] [address] Frank SchmidtCOUSDIANA SEENNormalNONE SEENCleveland Clinic Medina HospitalComment on above:Performed By: #### LIVER, LIPID, TSH, FT3, T4 #### [facility] [address] [address] [address] Frank HillsNitrite Ql (U)NegativeNormalNEGATIVECleveland Clinic Medina HospitalComment on above:Performed By: #### LIVER, LIPID, TSH, FT3, T4 #### [facility] [address] [address] [address] Frank HillspH (U)6.5 [pH]Normal5-9The [facility] Hospitalment on above: Performed By: #### LIVER, LIPID, TSH, FT3, T4 #### [facility] [address] [address] [address] Frank HillsWstlyEPV6-8Iubxqi1-6Tnv [facility] HospitalComment on above:Performed By: #### LIVER, LIPID, TSH, FT3, T4 #### [facility] [address] [address] [address] Frank HillsSPEC GRAVITY1.730Ybeqan4.005-<=1.025The [facility] HospitalComment on above:Performed By: #### LIVER, LIPID, TSH, FT3, T4 #### [facility] [address] [address] [address] Frank Gray PROTEINNegativeNormalNEGATIVE/ TRACEThe [facility] Comment on above:Performed By: #### LIVER, LIPID, TSH, FT3, T4 #### [facility] [address] [address] [address] Frank Villeda Qn (U)0.2 {Flaquita'U}/dLNormal0.2 - 1.0The [facility] HospitalComment on above:Performed By: #### LIVER, LIPID, TSH, FT3, T4 #### [facility] [address] [address] [address] Frank BarajasBCNONCompa SEENNormalNONE SEENCleveland Clinic Medina HospitalComment on above: Performed By: #### LIVER, LIPID, TSH, FT3, T4 #### [facility] [address] [place] [address] Dr. Frank HillsINSULINon 31-57-5629Fjwbrjt7.2 uIU/mLNormal2.6-24.9The [facility] HospitalComment on above:Performed By: #### LIVER, LIPID, TSH, FT3, T4 #### [facility] [address] [place] [address] Dr. Frank Vazquez W MANUAL DIFFon 47-84-1469WOOOUPNOHEXNIGUHXRQgihtwJvf [facility] HospitalComment on above:Performed By: #### LIVER, LIPID, TSH, FT3, T4 #### [facility] [address] [place] [address] Dr. Frank MccallICAL LYMPH #NormalCleveland Clinic Medina HospitalComment on above: Performed By: #### LIVER, LIPID, TSH, FT3, T4 #### [facility] [address] [address] [address] Frank Camargo LYMPH %NormalCleveland Clinic Medina HospitalComment on above: Performed By: #### LIVER, LIPID, TSH, FT3, T4 #### [facility] [address] [address] [address] Frank Simons #Normal0.0-0.3The [facility] HospitalComment on above: Performed By: #### LIVER, LIPID, TSH, FT3, T4 #### [facility] [address] [place] [address] Dr. Frank Simons %Normal0-5The [facility] HospitalComment on above:Performed By: #### LIVER, LIPID, TSH, FT3, T4 #### [facility] [address] [place] [address] Dr. Frank Adler #0.00 103/ulNormal0.00-0.10The [facility] HospitalComment on above:Performed By: #### LIVER, LIPID, TSH, FT3, T4 #### [facility] [address] [place] [address] Dr. Frank Adler %0.0 %Critically low0.2-2.0The [facility] HospitalCombeaumont hospital on above:Performed By: #### LIVER, LIPID, TSH, FT3, T4 #### [facility] [address] [place] [address] Dr. Frank Singer #NormalCleveland Clinic Medina HospitalComment on above:Performed By: #### LIVER, LIPID, TSH, FT3, T4 #### [facility] [address] [place] [address] Dr. Frank Singer %NormalCleveland Clinic Medina HospitalComment on above:Performed By: #### LIVER, LIPID, TSH, FT3, T4 #### [facility] [address] [place] [address] Dr. Frank HillsCORRECTED WBCNormal4.0-11.0The [facility] HospitalComment on above: Performed By: #### LIVER, LIPID, TSH, FT3, T4 #### [facility] [address] [place] [address] Dr. Frank Hernandez #0.06 103/ulNormal0.00-0.70The [facility] HospitalComment on above:Performed By: #### LIVER, LIPID, TSH, FT3, T4 #### [facility] [address] [place] [address] Dr. Frank Hernandez%2.0 %Normal0.9-7.0The [facility] HospitalComment on above: Performed By: #### LIVER, LIPID, TSH, FT3, T4 #### [facility] [address] [place] [address] Dr. Frank HillsHCT35.6 %Critically low36.0-48.0The [facility] HospitalComment on above:Performed By: #### LIVER, LIPID, TSH, FT3, T4 #### [facility] [address] [place] [address] Dr. Frank HillsHGB11.4 g/dlCritically low12.0-16.0The [facility] HospitalComment on above:Performed By: #### LIVER, LIPID, TSH, FT3, T4 #### [facility] [address] [place] [address] Dr. Frank Mcgowan #0.48 103/ulCritically low1.20-3.80The [facility] Comment on above:Performed By: #### LIVER, LIPID, TSH, FT3, T4 #### [facility] [address] [place] [address] Dr. Frank Mcgowan%17.0 %Critically low20.5-60.0The [facility] Hospitalment on above:Performed By: #### LIVER, LIPID, TSH, FT3, T4 #### [facility] [address] [place] [address] Dr. Frank DoranH33.4 ivXtfqaw31.7-34.0The [facility] Hospitalment on above: Performed By: #### LIVER, LIPID, TSH, FT3, T4 #### [facility] [address] [place] [address] Dr. Frank DoranHC32.0 g/yyHddglp98.9-35.2The [facility] HospitalComment on above:Performed By: #### LIVER, LIPID, TSH, FT3, T4 #### [facility] [address] [address] [address] Frank DoranV104.4 fLCritically high81.0-99.0The [facility] HospitalComment on above:Performed By: #### LIVER, LIPID, TSH, FT3, T4 #### [facility] [address] [place] [address] Dr. Frank ValeraOCYTE #NormalThe St. [facility] HospitalComment on above: Performed By: #### LIVER, LIPID, TSH, FT3, T4 #### [facility] [address] [place] [address] Dr. Frank Cross %NormalThe [facility]. [facility] HospitalComment on above: Performed By: #### LIVER, LIPID, TSH, FT3, T4 #### [facility] [address] [place] [address] Dr. Frank AgrawalROCYTOSIS1+NormalThe St. [facility] HospitalComment on above: Performed By: #### LIVER, LIPID, TSH, FT3, T4 #### [facility] [address] [place] [address] Dr. Frank Schneider#0.28 103/ulCritically low0.30-0.80The [facility] Comment on above:Performed By: #### LIVER, LIPID, TSH, FT3, T4 #### [facility] [address] [place] [address] Dr. Frank Schneider%10.0 %Normal1.7-12.0The [facility] HospitalComment on above: Performed By: #### LIVER, LIPID, TSH, FT3, T4 #### [facility] [address] [place] [address] Dr. Frank PowersV8.9 fLCritically low9.5-13.5The [facility] HospitalComment on above:Performed By: #### LIVER, LIPID, TSH, FT3, T4 #### [facility] [address] [place] [address] Dr. Frank Ewdards #NormalFisher-Titus Medical Centerment on above:Performed By: #### LIVER, LIPID, TSH, FT3, T4 #### [facility] [address] [place] [address] Dr. Frank Edwards %NormalThe [facility] HospitalCombeaumont hospital on above:Performed By: #### LIVER, LIPID, TSH, FT3, T4 #### [facility] [address] [place] [address] Dr. Frank HillsNRBCNoalThe St[address] [facility] HospitalCombeaumont hospital on above:Performed By: #### LIVER, LIPID, TSH, FT3, T4 #### [facility] [address] [place] [address] Dr. Frank LagosT169 103/ofOtotra339-642Cvz St[facility] HospitalCombeaumont hospital on above: Performed By: #### LIVER, LIPID, TSH, FT3, T4 #### [facility] [address] [place] [address] Dr. Frank RiveraC3.41 106/ulCritically low4.20-5.40[facility] on above:Performed By: #### LIVER, LIPID, TSH, FT3, T4 #### [facility] [address] [place] [address] Dr. Frank HillsRDW14.1 %Lghmvy14.0-15.0[facility] on above: Performed By: #### LIVER, LIPID, TSH, FT3, T4 #### [facility] [address] [place] [address] Dr. Frank Shah #1.99 103/ulNormal1.40-6.50The [facility] on above:Performed By: #### LIVER, LIPID, TSH, FT3, T4 #### [facility] [address] [place] [address] Dr. Frank Shah %71.0 %Snjbfs97.0-75.0The [facility] Hospitalment on above: Performed By: #### LIVER, LIPID, TSH, FT3, T4 #### [facility] [address] [address] [address] Frank HillsWBC2.8 103/ulCritically low4.0-11.0The [facility] on above:Performed By: #### LIVER, LIPID, TSH, FT3, T4 #### [facility] [address] [place] [address] Dr. Frank HillsFREDUAR T3on 71-09-3021ZQPJ T32.61 pg/mlLNormal2.18-3.98The [facility] HospitalCombeaumont hospital on above:Performed By: #### LIVER, LIPID, TSH, FT3, T4 #### [facility] [address] [place] [address] Dr. Frank HillsGLYCOHEMOGLOBIN A1Con [id number] RECOMMENDATIONSEE BELOWNormOhioHealth Southeastern Medical CenterCombeaumont hospital on above:Result Comment: ADA RECOMMENDED LIMIT 4.0 - 6.0 ADA THERAPEUTIC TARGET < 7.0 ACTION SUGGESTED > 7.0Performed By: #### A1C #### [facility] [address] [place] [address] Dr. Frank HillsGlucose [Mass/Vol]108 mg/dLWooster Community HospitalCombeaumont hospital on above:Performed By: #### A1C #### [facility] [address] [place] [address] Dr. Frank HillsHbA1c (Bld) [Mass fraction]5.4 %Normal4.5-6.2The [facility] on above:Performed By: #### A1C #### [facility] [address] [place] [address] Dr. Frank Caballero [id number] [Mass/Vol]96.0 ug/vVIidgdn69.0-170.0The [facility] on above:Performed By: #### LIVER, LIPID, TSH, FT3, T4 #### [facility] [address] [place] [address] Dr. Frank HillsLIPID PROFILEon [id number] RATIO NORMSEE BELOWWooster Community HospitalComment on above:Result Comment: 3.3 - 4.4 LOW RISK 4.4 - 7.1 AVERAGE RISK 7.1 - 11.0 MODERATE RISK >11.0 HIGH RISKPerformed By: #### LIVER, LIPID, TSH, FT3, T4 #### [facility] [address] [place] [address] Dr. Frank Carsonesterol [Mass/Vol]172 mg/dLNormal<=200[facility] Comment on above:Performed By: #### LIVER, LIPID, TSH, FT3, T4 #### [facility] [address] [place] [address] Dr. Frank Carsonesterol in HDL [Mass/Vol]66 mg/dLCritically scar90-12ZlxCleveland Clinic Medina HospitalComment on above:Performed By: #### LIVER, LIPID, TSH, FT3, T4 #### [facility] [address] [place] [address] Dr. Frank Hahn in LDL [Mass/Vol]86.6 mg/dLNoAccess Hospital DaytonComment on above:Performed By: #### LIVER, LIPID, TSH, FT3, T4 #### [facility] [address] [place] [address] Dr. Frank Hahn.total/Cholesterol in HDL [Mass ratio]2.6 {ratio} NormalCleveland Clinic Medina HospitalComment on above:Performed By: #### LIVER, LIPID, TSH, FT3, T4 #### [facility] [address] [place] [address] Dr. Frank Mancilla NORMAL> or = 60 mg/dl - LOW CARDIOVASCULAR RISK <40 mg/dl - HIGH CARDIOVASCULAR RISKWooster Community HospitalComment on above:Performed By: #### LIVER, LIPID, TSH, FT3, T4 #### [facility] [address] [place] [address] Dr. Frank Lancaster CALC NORMALSEE BELOWWooster Community HospitalComment on above:Result Comment: <100 mg/dl OPTIMAL 100 - 129 mg/dl NEAR OR ABOVE OPTIMAL 130 - 159 mg/dl BORDERLINE HIGH 160 - 189 mg/dl HIGH >190 mg/dl VERY HIGH Performed By: #### LIVER, LIPID, TSH, FT3, T4 #### [facility] [address] [address] [address] Frank HillsTriglyceride [Mass/Vol]97 mg/dLNormal<=150[facility] Comment on above:Performed By: #### LIVER, LIPID, TSH, FT3, T4 #### [facility] [address] [address] [address] Frank HillsVLDL CALC19.4 mg/dLNormalThe St. Francis HospitalComment on above: Performed By: #### LIVER, LIPID, TSH, FT3, T4 #### [facility] [address] [address] [address] Frank Landaverde PROFILEon [id number] [Mass/Vol]3.5 g/dLNormal3.4-5.[address] [facility] HospitalComment on above:Performed By: #### LIVER, LIPID, TSH, FT3, T4 #### [facility] [address] [place] [address] Dr. Frank HillsAlbumin/Globulin [Mass ratio]1.2 {ratio}NormalThe [facility] Hospitalment on above:Performed By: #### LIVER, LIPID, TSH, FT3, T4 #### [facility] [address] [place] [address] Dr. Frank Chung [Catalytic activity/Vol]55 U/DVsmocj70-199Fnf [facility] Hospitalment on above:Performed By: #### LIVER, LIPID, TSH, FT3, T4 #### [facility] [address] [place] [address] Dr. Frank Jung [Catalytic activity/Vol]34 U/AErduzk86-82Ddf [facility] on above:Performed By: #### LIVER, LIPID, TSH, FT3, T4 #### [facility] [address] [place] [address] Dr. Frank Baker [Catalytic activity/Vol]40 U/LCritically nwyy77-96Yuw St. [facility] HospitalComment on above:Performed By: #### LIVER, LIPID, TSH, FT3, T4 #### [facility] [address] [place] [address] Dr. Frank CorderoI, CONJUGATED0.2 mg/dLNormal0.0-0.2The [facility] Comment on above:Performed By: #### LIVER, LIPID, TSH, FT3, T4 #### [facility] [address] [place] [address] Dr. Frank Corderoirubin [Mass/Vol]0.8 mg/dLNormal0.2-1.0The [facility] Comment on above:Performed By: #### LIVER, LIPID, TSH, FT3, T4 #### [facility] [address] [place] [address] Dr. Frank HillsGlobulin (S) [Mass/Vol]2.9 g/dLNormalThe St. Francis HospitalComment on above:Performed By: #### LIVER, LIPID, TSH, FT3, T4 #### [facility] [address] [place] [address] Dr. Frank HillsProtein [Mass/Vol]6.4 g/dLNormal6.4-8.2[facility] Comment on above:Performed By: #### LIVER, LIPID, TSH, FT3, T4 #### [facility] [address] [place] [address] Dr. Frank HillsT4on [id number] [Mass/Vol]6.70 ug/dLNormal4.80-13.90The [facility]. [facility] HospitalComment on above:Performed By: #### LIVER, LIPID, TSH, FT3, T4 #### [facility] [address] [place] [address] Dr. Frank ChoudharyHoleonardo 72-47-6097PGI8.804 uIU/mLNormal0.358-3.740The [facility] HospitalComment on above:Performed By: #### LIVER, LIPID, TSH, FT3, T4 #### [facility] [address] [place] [address] Dr. Frank HillsVITAMIN D 25 OHon [id number] D 25-OH50.7 ng/mLNOhioHealth O'Bleness HospitalComment on above:Performed By: #### LIVER, LIPID, TSH, FT3, T4 #### [facility] [address] [place], [place] [address] Dr. Frank BAUM BELOWWooster Community HospitalComment on above: Result Comment: <20 ng/mL Vit D deficient 20 - <30 ng/mL Vit D insufficient 30 - 100 ng/mL Vit D sufficient >100 ng/mL Potential ToxicityPerformed By: #### LIVER, LIPID, TSH, FT3, T4 #### [facility] [address] [place], [place] [address] Dr. Frank HillsMG MAMM SCREEN 3D BO CADon [id number] MAMM SCREEN 3D BO CAD Patient: DANYELLE HASKINS Exam Date: 08/31/2022 : 1955 Gender:F Ordering : DR JACK LANDAVERDE . Admission #: [id number] Family : DR YULISA BATRES . Order #: [id number] CLICK HERE TO VIEW EXAM RADIOLOGY REPORT [...] thyroid cancer at age 48. LOCATION: [facility] BREAST COMPOSITION: Scattered areas fibroglandular density. [...] by: Lisy Sandoval MD on 08/31/2022 at 11:14NormalThe Erendira HospitalXR DEXA BONE DENSITYon [id number] DEXA BONE DENSITYEXAMINATION: XR DEXA BONE DENSITY, 08/27/2022 9:03 AM EDT HISTORY: Senile osteoporosis COMPARISON: 2017 TECHNIQUE: Dual-energy X-ray absorptiometry (DEXA) bone density study performed for the axial skeleton. FINDINGS: Bone mineral density of the left femoral trochanter measures 0.581 g/sq cm. T score -2.3. WHO classification osteopenia IMPRESSION: Osteopenia. Moderate fracture risk Electronically authenticated by: LISY SANDOVAL Date: 2022-08-27 18:41NoAccess Hospital DaytonCOMPLEMENT TOTAL (CH50)on [id number], Total (CH50)>60 Normal>[address] [facility] HospitalComment on above:Result Comment: Age Male Female 1 - 30 [...] table above to determine out of range values.Performed By: #### LIVER, LIPID, TSH, FT3, T4 #### [facility] [address] [place] [address] Dr. Frank HillsC3 and C4 COMPLEMENTon 58-81-9724Tziwkdpqbz C3, Wtfey008 mg/dL Xwyxdo32-318Nln St. Francis HospitalComment on above:Performed By: #### LIVER, LIPID, TSH, FT3, T4 #### [facility] [address] [place] [address] Dr. Frank HillsComplement C4, Serum38 mg/zXVfqpdt15-99EnuC[facility] Clinic [facility] Hospital Comment on above:Performed By: #### LIVER, LIPID, TSH, FT3, T4 #### [facility] [address] [place] [address] Dr. Frank HillsCBC AUTO DIFFon [id number] #0.0 103/ulNormal0.0-0.1The St. Francis HospitalComment on above:Performed By: #### CBC #### [facility] [address] [address] [address] Frank HillsBasophils/100 WBC (Bld)0.9 %Normal0.2-2.0The [facility] Comment on above:Performed By: #### CBC #### [facility] [address] [place] [address] Dr. Frank Cali #0.1 103/ulNormal0.0-0.7The [facility]. [facility] HospitalComment on above: Performed By: #### CBC #### [facility] [address] [place] [address] Dr. Frank Patriciaosinophils/100 WBC (Bld)3.4 %Normal0.9-7.0The [facility] Comment on above:Performed By: #### CBC #### [facility] [address] [place] [address] Dr. Frank Patriciarythrocyte distribution width (RBC) [Ratio]13.8 %Terbuf55.0-15.[address] [facility] HospitalComment on above:Performed By: #### CBC #### [facility] [address] [place] [address] Dr. Frank HillsHematocrit (Bld) [Volume fraction]36.6 %Dpjama63.0-48.0The [facility] HospitalComment on above:Performed By: #### CBC #### [facility] [address] [place] [address] Dr. Frank HillsHemoglobin (Bld) [Mass/Vol]11.8 g/dLCritically low12.0-16.0The [facility] HospitalComment on above:Performed By: #### CBC #### [facility] [address] [place] [address] Dr. Frank Smith #0.01 10e3/ulNormal0.00-0.03The [facility] HospitalComment on above:Performed By: #### CBC #### [facility] [address] [place] [address] Dr. Frank Smith %0.3 %Normal0.0-0.5The [facility] HospitalComment on above: Performed By: #### CBC #### [facility] [address] [address] [address] Frank Agarwal #0.6 103/ulCritically low1.2-3.8The [facility] Comment on above:Performed By: #### CBC #### [facility] [address] [address] [address] Frank Alfredmphocytes/100 WBC (Bld)18.1 %Critically low20.5-60.0The [facility] HospitalComment on above:Performed By: #### CBC #### [facility] [address] [place] [address] Dr. Frank Baker DIFF REQNONormalThe St. Francis HospitalComment on above: Performed By: #### CBC #### [facility] [address] [place] [address] Dr. Frank Doran (RBC) [Entitic mass]33.6 llJzfhjd86.7-34.0The [facility] HospitalComment on above:Performed By: #### CBC #### [facility] [address] [place] [address] Dr. Frank Doran (RBC) [Mass/Vol]32.2 g/aMXzolcu30.9-35.2The [facility] HospitalComment on above:Performed By: #### CBC #### [facility] [address] [place] [address] Dr. Frank Doran (RBC) [Entitic vol]104.3 fLCritically high81.0-99.0The [facility] HospitalComment on above:Performed By: #### CBC #### [facility] [address] [place] [address] Dr. Frank Ponce #0.4 103/ulNormal0.3-0.8The [facility] HospitalComment on above:Performed By: #### CBC #### [facility] [address] [place] [address] Dr. Frank Babinocytes/100 WBC (Bld)11.2 %Normal1.7-12.0The [facility] Comment on above:Performed By: #### CBC #### [facility] [address] [address] [address] Frank Redding #2.3 103/ulNormal1.4-6.5The [facility] HospitalComment on above:Performed By: #### CBC #### [facility] [address] [address] [address] Frank Mooneyutrophils/100 WBC (Bld)66.1 %Axgvwv16.0-75.0The [facility] HospitalComment on above:Performed By: #### CBC #### [facility] [address] [place] [address] Dr. Frank Mastersonlet mean volume (Bld) [Entitic vol]8.9 fLCritically low 9.5-13.5The [facility]. [facility] HospitalComment on above:Performed By: #### CBC #### [facility] [address] [place] [address] Dr. Frank HillsPLT213 103/ruQggjjz056-837Qst St. Francis HospitalComment on above: Performed By: #### CBC #### [facility] [address] [place] [address] Dr. Frank HillsRBC3.51 106/ulCritically low4.20-5.40The [facility] Hospitalment on above:Performed By: #### CBC #### [facility] [address] [place] [address] Dr. Frank HillsWBC3.5 103/ulCritically low4.0-11.0The [facility] HospitalComment on above:Performed By: #### CBC #### [facility] [address] [place] [address] Dr. Frank HillsPROF 14(COMP METB)on 30-62-7873Slavppl [Mass/Vol]3.7 g/dLNormal 3.4-5.0The [facility] HospitalComment on above:Performed By: #### LIVER, LIPID, TSH, FT3, T4 #### [facility] [address] [place] [address] Dr. Frank HlilsAlbumin/Globulin [Mass ratio]1.2 {ratio}NormalThe St. Francis HospitalComment on above:Performed By: #### LIVER, LIPID, TSH, FT3, T4 #### [facility] [address] [place] [address] Dr. Frank Chung [Catalytic activity/Vol]59 U/GXsfesc65-326Vgs St. [facility] HospitalComment on above:Performed By: #### LIVER, LIPID, TSH, FT3, T4 #### [facility] [address] [place] [address] Dr. Frank Jung [Catalytic activity/Vol]23 U/CMiouzr03-87Vvw [facility] Hospitalment on above:Performed By: #### LIVER, LIPID, TSH, FT3, T4 #### [facility] [address] [place] [address] Dr. Frank HillsAnion gap [Moles/Vol]10.2 mmol/LNormalThe [facility] Comment on above:Performed By: #### LIVER, LIPID, TSH, FT3, T4 #### [facility] [address] [place] [address] Dr. Frank HillsAST [Catalytic activity/Vol]24 U/FZptsca96-99Ukw [facility] on above:Performed By: #### LIVER, LIPID, TSH, FT3, T4 #### [facility] [address] [place] [address] Dr. Frank HillsBilirubin [Mass/Vol]0.6 mg/dLNormal0.2-1.0The [facility] Comment on above:Performed By: #### LIVER, LIPID, TSH, FT3, T4 #### [facility] [address] [place] [address] Dr. Frank HillsCalcium [Mass/Vol]8.9 mg/dLNormal8.5-10.1The [facility] Comment on above:Performed By: #### LIVER, LIPID, TSH, FT3, T4 #### [facility] [address] [place] [address] Dr. Frank HillsChloride [Moles/Vol]105 mmol/ZIskydg23-277Rne [facility] Comment on above:Performed By: #### LIVER, LIPID, TSH, FT3, T4 #### [facility] [address] [place] [address] Dr. Frank HillsCO2 [Moles/Vol]30.0 mmol/BLpnhfq09.0-32.0[facility] Comment on above:Performed By: #### LIVER, LIPID, TSH, FT3, T4 #### [facility] [address] [place] [address] Dr. Frank HillsCreatinine [Mass/Vol]0.64 mg/dLNormal0.55-1.02[facility] HospitalComment on above:Performed By: #### LIVER, LIPID, TSH, FT3, T4 #### [facility] [address] [place] [address] Dr. Frank PatriciaGFR-AF PITCAIRN ISLANDER>60Normal>=60The [facility] HospitalComment on above:Performed By: #### LIVER, LIPID, TSH, FT3, T4 #### [facility] [address] [place] [address] Dr. Frank PatriciaGFR-NON AF PITCAIRN ISLANDER>60Normal>=60[facility] HospitalComment on above:Performed By: #### LIVER, LIPID, TSH, FT3, T4 #### [facility] [address] [place] [address] Dr. Frank HillsGlobulin (S) [Mass/Vol]3.0 g/dLNormalThe St. [facility] HospitalComment on above:Performed By: #### LIVER, LIPID, TSH, FT3, T4 #### [facility] [address] [place] [address] Dr. Frank HillsGlucose [Mass/Vol]97 mg/zUWjxwky44-796LyfC[facility] Clinic [facility] Hospital Comment on above:Performed By: #### LIVER, LIPID, TSH, FT3, T4 #### [facility] [address] [place] [address] Dr. Frank HillsPotassium [Moles/Vol]4.2 mmol/LNormal3.5-5.1[facility] Comment on above:Performed By: #### LIVER, LIPID, TSH, FT3, T4 #### [facility] [address] [place] [address] Dr. Frank HillsProtein [Mass/Vol]6.7 g/dLNormal6.4-8.2[facility] Comment on above:Performed By: #### LIVER, LIPID, TSH, FT3, T4 #### [facility] [address] [address] [address] Frank HillsSodium [Moles/Vol]141 mmol/OPzfcte377-887WluCleveland Clinic Medina Hospital Comment on above:Performed By: #### LIVER, LIPID, TSH, FT3, T4 #### [facility] [address] [place] [address] Dr. Frank HillsUrea nitrogen [Mass/Vol]13.0 mg/dLNormal7.0-18.0[facility] HospitalComment on above:Performed By: #### LIVER, LIPID, TSH, FT3, T4 #### [facility] [address] [place] [address] Dr. Frank Noble nitrogen/Creatinine [Mass ratio]20.3 mg/mgNormalThe St. [facility] HospitalComment on above:Performed By: #### LIVER, LIPID, TSH, FT3, T4 #### [facility] [address] [place] [address] Dr. Frank Díaz RATE WESTERGRENon [id number] RATE8 mm/hrNormal<=30[facility] HospitalComment on above:Performed By: #### LIVER, LIPID, TSH, FT3, T4 #### [facility] [address] [place] [address] Dr. Frank Gray RANDOM W/MICROSCOPICon [id number] SEENNormalNONE SEENCleveland Clinic Medina HospitalComment on above:Performed By: #### LIVER, LIPID, TSH, FT3, T4 #### [facility] [address] [place] [address] Dr. Frank HillsBilirubin Ql (U)NegativeNormalNEGATIVECleveland Clinic Medina Hospital Comment on above:Performed By: #### LIVER, LIPID, TSH, FT3, T4 #### [facility] [address] [address] [address] Frank Elam SEENNormalNONE SEENNewark Hospital on above:Performed By: #### LIVER, LIPID, TSH, FT3, T4 #### [facility] [address] [address] [address] Frank Ness (U)CLEARNormalCLEARFisher-Titus Medical Centerment on above: Performed By: #### LIVER, LIPID, TSH, FT3, T4 #### [facility] [address] [address] [address] Frank Cornell (U)LT. YELLOWNormalYAkron Children's Hospital on above:Performed By: #### LIVER, LIPID, TSH, FT3, T4 #### [facility] [address] [place] [address] Dr. Frank HillsCrterrence LM Nom (Urine sed)NONE SEENNormalNONE SEENFisher-Titus Medical Centerment on above:Performed By: #### LIVER, LIPID, TSH, FT3, T4 #### [facility] [address] [address] [address] Frank Patriciapithelial cells LM Ql (Urine sed)FEWAbnormalNONE SEEN /RARENewark Hospital on above:Performed By: #### LIVER, LIPID, TSH, FT3, T4 #### [facility] [address] [address] [address] Frank HillsGlucose Ql (U)NegativeNormalNEGATIVENewark Hospital on above:Performed By: #### LIVER, LIPID, TSH, FT3, T4 #### [facility] [address] [place] [address] Dr. Frank HillsHemoglobin Ql (U)NegativeNormalNEGATIVEThe [facility] on above:Performed By: #### LIVER, LIPID, TSH, FT3, T4 #### [facility] [address] [address] [address] Yilan ChangKetones Ql (U)NegativeNormalNEGATIVECleveland Clinic Medina HospitalComment on above:Performed By: #### LIVER, LIPID, TSH, FT3, T4 #### [facility] [address] [place] [address] Dr. Frank HillsLEUKOCYTESTRACEAbnormalNEGATIVEThe St. [facility] HospitalComment on above:Performed By: #### LIVER, LIPID, TSH, FT3, T4 #### [facility] [address] [place] [address] Dr. Frank SchmidtCOUSDIANA SEENNormalNONE SEENCleveland Clinic Medina HospitalComment on above:Performed By: #### LIVER, LIPID, TSH, FT3, T4 #### [facility] [address] [place] [address] Dr. Frank Nieves Ql (U)NegativeNormalNEGATIVECleveland Clinic Medina HospitalComment on above:Performed By: #### LIVER, LIPID, TSH, FT3, T4 #### [facility] [address] [place] [address] Dr. Frank HillspH (U)6.5 [pH]Normal5-9[facility] HospitalComment on above: Performed By: #### LIVER, LIPID, TSH, FT3, T4 #### [facility] [address] [place] [address] Dr. Frank HillsTlsgkKLV6-4Smxirm9-2Gkd [facility] HospitalComment on above:Performed By: #### LIVER, LIPID, TSH, FT3, T4 #### [facility] [address] [place] [address] Dr. Frank HillsSPEC GRAVITY1.673Cckjyk9.005-<=1.025The St. [facility] HospitalComment on above:Performed By: #### LIVER, LIPID, TSH, FT3, T4 #### [facility] [address] [place] [address] Dr. Frank HillsUA PROTEINNegativeNormalNEGATIVE/ TRACEThe [facility] Comment on above:Performed By: #### LIVER, LIPID, TSH, FT3, T4 #### [facility] [address] [place] [address] Dr. Frank Villeda Qn (U)0.2 {Flaquita'U}/dLNormal0.2 - 1.0The [facility] Hospitalment on above:Performed By: #### LIVER, LIPID, TSH, FT3, T4 #### [facility] [address] [address] [address] Frank HillsWBC0-2AbnormalNONE SEENThe [facility] on above: Performed By: #### LIVER, LIPID, TSH, FT3, T4 #### [facility] [address] [address] [address] Frank HillsC3 and C4 COMPLEMENTon 51-70-1513Qyaecluohp C3, Mltwc033 mg/dL Critically bhnk81-780Pog [facility] on above:Performed By: #### LIVER, LIPID, TSH, FT3, T4 #### [facility] [address] [address] [address] Frank HillsComplement C4, Serum40 mg/dLCritically gzvs48-24Pyf [facility] on above:Performed By: #### LIVER, LIPID, TSH, FT3, T4 #### [facility] [address] [address] [address] Frank HuddlestonPLEMENT TOTAL (CH50)on 17-54-0877Lxgwbsaynx, Total (CH50)>60 Normal>41The [facility] on above:Result Comment: Age Male Female 1 - 30 [...] table above to determine out of range values.Performed By: #### LIVER, LIPID, TSH, FT3, T4 #### [facility] [address] [address] [address] Frank Vazquez AUTO DIFFon 14-00-3582BYMO #0.0 103/ulNormal0.0-0.1The [facility]rend[facility] HospitalComment on above:Performed By: #### LIVER, LIPID, TSH, FT3, T4 #### [facility] [address] [place] [address] Dr. Frank HillsBasophils/100 WBC (Bld)0.4 %Normal0.2-2.0The [facility] Comment on above:Performed By: #### LIVER, LIPID, TSH, FT3, T4 #### [facility] [address] [place] [address] Dr. Frank Cali #0.1 103/ulNormal0.0-0.7The [facility] HospitalComment on above: Performed By: #### LIVER, LIPID, TSH, FT3, T4 #### [facility] [address] [place] [address] Dr. Frank Patriciaosinophils/100 WBC (Bld)1.7 %Normal0.9-7.0The [facility] Comment on above:Performed By: #### LIVER, LIPID, TSH, FT3, T4 #### [facility] [address] [place] [address] Dr. Frank Patriciarythrocyte distribution width (RBC) [Ratio]13.2 %Sklsag14.0-15.[address] [facility] HospitalComment on above:Performed By: #### LIVER, LIPID, TSH, FT3, T4 #### [facility] [address] [place] [address] Dr. Frank HillsHematocrit (Bld) [Volume fraction]39.6 %Vylbki50.0-48.0The [facility] HospitalComment on above:Performed By: #### LIVER, LIPID, TSH, FT3, T4 #### [facility] [address] [place] [address] Dr. Frank HillsHemoglobin (Bld) [Mass/Vol]12.7 g/yZFuetsh65.0-16.0The [facility] HospitalComment on above:Performed By: #### LIVER, LIPID, TSH, FT3, T4 #### [facility] [address] [place] [address] Dr. Frank HillsIG #0.02 10e3/ulNormal0.00-0.03The [facility] HospitalComment on above:Performed By: #### LIVER, LIPID, TSH, FT3, T4 #### [facility] [address] [place] [address] Dr. Frank Smith %0.4 %Normal0.0-0.5The [facility] HospitalComment on above: Performed By: #### LIVER, LIPID, TSH, FT3, T4 #### [facility] [address] [place] [address] Dr. Frank Agarwal #0.9 103/ulCritically low1.2-3.8The [facility] Comment on above:Performed By: #### LIVER, LIPID, TSH, FT3, T4 #### [facility] [address] [place] [address] Dr. Frank Gonzalezhocytes/100 WBC (Bld)17.3 %Critically low20.5-60.0The [facility] HospitalComment on above:Performed By: #### LIVER, LIPID, TSH, FT3, T4 #### [facility] [address] [place] [address] Dr. Frank BarkerUAL DIFF REQNONormalThe St. Francis HospitalComment on above: Performed By: #### LIVER, LIPID, TSH, FT3, T4 #### [facility] [address] [place] [address] Dr. Frank Doran (RBC) [Entitic mass]33.7 zaQpzlea85.7-34.0The [facility] HospitalComment on above:Performed By: #### LIVER, LIPID, TSH, FT3, T4 #### [facility] [address] [place] [address] Dr. Frank Doran (RBC) [Mass/Vol]32.1 g/dOOrxwxs41.9-35.2The [facility] HospitalComment on above:Performed By: #### LIVER, LIPID, TSH, FT3, T4 #### [facility] [address] [place] [address] Dr. Frank Doran (RBC) [Entitic vol]105.0 fLCritically high81.0-99.0The [facility] HospitalComment on above:Performed By: #### LIVER, LIPID, TSH, FT3, T4 #### [facility] [address] [place] [address] Dr. Frank Ponce #0.5 103/ulNormal0.3-0.8The [facility] HospitalComment on above:Performed By: #### LIVER, LIPID, TSH, FT3, T4 #### [facility] [address] [place] [address] Dr. Frank Babinocytes/100 WBC (Bld)8.9 %Normal1.7-12.0The [facility] Comment on above:Performed By: #### LIVER, LIPID, TSH, FT3, T4 #### [facility] [address] [place] [address] Dr. Frank Redding #3.7 103/ulNormal1.4-6.5The St. Francis HospitalComment on above:Performed By: #### LIVER, LIPID, TSH, FT3, T4 #### [facility] [address] [place] [address] Dr. Frank Mooneyutrophils/100 WBC (Bld)71.3 %Kertht04.0-75.0The [facility] Hospitalment on above:Performed By: #### LIVER, LIPID, TSH, FT3, T4 #### [facility] [address] [place] [address] Dr. Frank HillsPlatelet mean volume (Bld) [Entitic vol]8.9 fLCritically low 9.5-13.5The [facility] Hospitalment on above:Performed By: #### LIVER, LIPID, TSH, FT3, T4 #### [facility] [address] [place] [address] Dr. Frank HillsPLT198 103/cwCkroxx470-867Kqs [facility] Hospitalment on above: Performed By: #### LIVER, LIPID, TSH, FT3, T4 #### [facility] [address] [place] [address] Dr. Frank HillsRBC3.77 106/ulCritically low4.20-5.40The [facility]. [facility] HospitalComment on above:Performed By: #### LIVER, LIPID, TSH, FT3, T4 #### [facility] [address] [address] [address] Frank HillsWBC5.2 103/ulNormal4.0-11.0The St. Francis HospitalComment on above: Performed By: #### LIVER, LIPID, TSH, FT3, T4 #### [facility] [address] [address] [address] Frank HillsMRI BRAIN WO CONon 43-63-6985CDI BRAIN WO CONEXAMINATION: MRI BRAIN WO CON, 04/20/2022 9:23 AM EDT HISTORY: [...] Electronically authenticated by: CHARO MAY Date: 2022-04-20 16:44[facility] HospitalPROF 14(COMP METB)on 20-77-4554Lplioxw [Mass/Vol]4.0 g/dLNormal 3.4-5.0The [facility]. [facility] HospitalComment on above:Performed By: #### LIVER, LIPID, TSH, FT3, T4 #### [facility] [address] [place] [address] Dr. Frank HillsAlbumin/Globulin [Mass ratio]1.1 {ratio}NormalThe [facility] Hospitalment on above:Performed By: #### LIVER, LIPID, TSH, FT3, T4 #### [facility] [address] [place] [address] Dr. Frank Chung [Catalytic activity/Vol]68 U/JTswrox70-637Lzj [facility] on above:Performed By: #### LIVER, LIPID, TSH, FT3, T4 #### [facility] [address] [place] [address] Dr. Frank Jung [Catalytic activity/Vol]35 U/USpgbuv77-93Xdk St. Francis HospitalComment on above:Performed By: #### LIVER, LIPID, TSH, FT3, T4 #### [facility] [address] [place] [address] Dr. Frank Estradaon gap [Moles/Vol]10.1 mmol/LNormalThe [facility] Comment on above:Performed By: #### LIVER, LIPID, TSH, FT3, T4 #### [facility] [address] [place] [address] Dr. Frank Baker [Catalytic activity/Vol]31 U/BJzlxul71-14Aqy [facility] on above:Performed By: #### LIVER, LIPID, TSH, FT3, T4 #### [facility] [address] [place] [address] Dr. Frank HillsBilirubin [Mass/Vol]0.9 mg/dLNormal0.2-1.0[facility] Comment on above:Performed By: #### LIVER, LIPID, TSH, FT3, T4 #### [facility] [address] [place] [address] Dr. Frank HillsCalcium [Mass/Vol]9.0 mg/dLNormal8.5-10.1[facility] Comment on above:Performed By: #### LIVER, LIPID, TSH, FT3, T4 #### [facility] [address] [place] [address] Dr. Frank HillsChloride [Moles/Vol]104 mmol/GGqnzaj50-577QgtC[facility] Clinic [facility] Comment on above:Performed By: #### LIVER, LIPID, TSH, FT3, T4 #### [facility] [address] [place] [address] Dr. Frank HillsCO2 [Moles/Vol]29.7 mmol/YUuxict34.0-32.0The [facility] Comment on above:Performed By: #### LIVER, LIPID, TSH, FT3, T4 #### [facility] [address] [address] [address] Frank HillsCreatinine [Mass/Vol]0.68 mg/dLNormal0.55-1.02[facility] HospitalComment on above:Performed By: #### LIVER, LIPID, TSH, FT3, T4 #### [facility] [address] [place] [address] Dr. Marie ChangEGFR-AF PITCAIRN ISLANDER>60Normal>=60The St. Francis HospitalComment on above:Performed By: #### LIVER, LIPID, TSH, FT3, T4 #### [facility] [address] [place] [address] Dr. Frank PatriciaGFR-NON AF PITCAIRN ISLANDER>60Normal>=60The [facility]. Francis HospitalComment on above:Performed By: #### LIVER, LIPID, TSH, FT3, T4 #### [facility] [address] [place] [address] Dr. Frank HillsGlobulin (S) [Mass/Vol]3.5 g/dLNormalThe St. Francis HospitalComment on above:Performed By: #### LIVER, LIPID, TSH, FT3, T4 #### [facility] [address] [address] [address] Frank HillsGlucose [Mass/Vol]92 mg/gNKisnhg63-213Non [facility] Comment on above:Performed By: #### LIVER, LIPID, TSH, FT3, T4 #### [facility] [address] [place] [address] Dr. Frank HillsPotassium [Moles/Vol]3.8 mmol/LNormal3.5-5.1The [facility] Comment on above:Performed By: #### LIVER, LIPID, TSH, FT3, T4 #### [facility] [address] [address] [address] Frank HillsProtein [Mass/Vol]7.5 g/dLNormal6.4-8.2The [facility] Comment on above:Performed By: #### LIVER, LIPID, TSH, FT3, T4 #### [facility] [address] [address] [address] Frank HillsSodium [Moles/Vol]140 mmol/FPtttyn836-508Chg [facility] Comment on above:Performed By: #### LIVER, LIPID, TSH, FT3, T4 #### [facility] [address] [place] [address] Dr. Frank HillsUrea nitrogen [Mass/Vol]14.0 mg/dLNormal7.0-18.0The [facility]. [facility] HospitalComment on above:Performed By: #### LIVER, LIPID, TSH, FT3, T4 #### [facility] [address] [place] [address] Dr. Frank Noble nitrogen/Creatinine [Mass ratio]20.6 mg/mgNormalThe St. Francis HospitalComment on above:Performed By: #### LIVER, LIPID, TSH, FT3, T4 #### [facility] [address] [place] [address] Dr. Frank Díaz RATE WESTERGRENon 44-40-0423PFX RATE6 mm/hrNormal<=30The St. [facility] HospitalComment on above:Performed By: #### SEDR #### [facility] [address] [address] [address] Frank Gray RANDOM W/MICROSCOPICon 54-77-0095CASGAFJZZKJY SEENNormalNONE SEENThe St. Francis HospitalComment on above:Performed By: #### LIVER, LIPID, TSH, FT3, T4 #### [facility] [address] [place] [address] Dr. Frank HillsBilirubin Ql (U)NegativeNormalNEGATIVEThe [facility] Comment on above:Performed By: #### LIVER, LIPID, TSH, FT3, T4 #### [facility] [address] [place] [address] Dr. Frank Elam SEENNormalNONE SEENCleveland Clinic Med[facility] HospitalCombeaumont hospital on above:Performed By: #### LIVER, LIPID, TSH, FT3, T4 #### [facility] [address] [place] [address] Dr. Frank Ness (U)CLEARNormalCLEARCleveland Clinic Medina HospitalComment on above: Performed By: #### LIVER, LIPID, TSH, FT3, T4 #### [facility] [address] [place] [address] Dr. Frank Cornell (U)LT. YELLOWNormalYUniversity Hospitals TriPoint Medical CenterCombeaumont hospital on above:Performed By: #### LIVER, LIPID, TSH, FT3, T4 #### [facility] [address] [place] [address] Dr. Frank HillsCrterrence LM Nom (Urine sed)NONE SEENNormalNONE SEENCleveland Clinic Medina HospitalComment on above:Performed By: #### LIVER, LIPID, TSH, FT3, T4 #### [facility] [address] [place] [address] Dr. Frank Luevanothelial cells LM Ql (Urine sed)RARENormalNONE SEEN /RARECleveland Clinic Medina HospitalCombeaumont hospital on above:Performed By: #### LIVER, LIPID, TSH, FT3, T4 #### [facility] [address] [place] [address] Dr. Frank HillsGlucose Ql (U)NegativeNormalNEGGood Samaritan HospitalCombeaumont hospital on above:Performed By: #### LIVER, LIPID, TSH, FT3, T4 #### [facility] [address] [place] [address] Dr. Frank HillsHemoglobin Ql (U)NegativeNormalNEGGood Samaritan Hospital Comment on above:Performed By: #### LIVER, LIPID, TSH, FT3, T4 #### [facility] [address] [place] [address] Dr. Frank Kerr Ql (U)NegativeNormalNEGATIVECleveland Clinic Medina HospitalComment on above:Performed By: #### LIVER, LIPID, TSH, FT3, T4 #### [facility] [address] [address] [address] Frank RodriguezOCYTESNegativeNormalNEGATIVEThe St. Francis HospitalComment on above:Performed By: #### LIVER, LIPID, TSH, FT3, T4 #### [facility] [address] [address] [address] Frank DavidsonACEAbnormalNONE SEENCleveland Clinic Medina HospitalComment on above:Performed By: #### LIVER, LIPID, TSH, FT3, T4 #### [facility] [address] [address] [address] Frank Nieves Ql (U)NegativeNormalNEGATIVECleveland Clinic Medina HospitalComment on above:Performed By: #### LIVER, LIPID, TSH, FT3, T4 #### [facility] [address] [address] [address] Frank Garcia (U)6.0 [pH]Normal5-9The St. Francis HospitalComment on above: Performed By: #### LIVER, LIPID, TSH, FT3, T4 #### [facility] [address] [address] [address] Frank Nathan SEENAbnormal0-2The St. [facility] HospitalComment on above: Performed By: #### LIVER, LIPID, TSH, FT3, T4 #### [facility] [address] [address] [address] Frank HillsSPEC GRAVITY1.903Gskqwa7.005-<=1.025The St. Francis HospitalComment on above:Performed By: #### LIVER, LIPID, TSH, FT3, T4 #### [facility] [address] [address] [address] Frank Gray PROTEINNegativeNormalNEGATIVE/ TRACEThe [facility] Comment on above:Performed By: #### LIVER, LIPID, TSH, FT3, T4 #### [facility] [address] [address] [address] Frank Villeda Qn (U)0.2 {Flaquita'U}/dLNormal0.2 - 1.0The [facility] HospitalComment on above:Performed By: #### LIVER, LIPID, TSH, FT3, T4 #### [facility] [address] [place], [place] [address] Dr. Frank BarajasBCNONCompa SEENNormalNONE SEENThe St. Francis HospitalComment on above: Performed By: #### LIVER, LIPID, TSH, FT3, T4 #### [facility] [address] [address] [address] Frank HillsAmbulatory Clinical Summaryon 26-95-4239Chtdhfrhex Clinical Summary{[id number]-40-f7-2j-j3-kd-40-69-09-37-3c-92-ae}CD:[id number] Hospitals Cleveland Medical CenterPatient Educationon 39-19-7370Jvqhtuz EducationUrology Urinary Incontinence Urinary incontinence refers to a condition in which a person is unable to control where and when topass urine. A person with this condition will [...] the bladder, urethra, and sphincter can store andrelease urine. There are different types of urodynamic [...] of moderate-intensity exercise every week. Ask your healthcare provider which activities are safe for you. [...] urges. This can include distraction techniques or controlledbreathing exercises. ? Medicines to relax the bladder muscles and prevent bladder spasms. ? Medicines to help slow or prevent the growth of a man's prostate. ? Botox injections. These can help relax the bladder muscles. ? Using pulses of electricity to help change bladder reflexes (electrical nerve stimulation). ? For women, using a senior medical transcriptionist to prevent urine leaks. This [...] after experiencing incontinence. General instructions ? Take crhg-ywg-venkfzo and prescription medicines only as (more content not included)...[facility] CenterUrology Office/Clinic Noteon 77-76-3876Lnrcdvu Office/Clinic NoteChief Complaint 6 month check w/PVR [facility] Staff Danyelle is a 66 y/o [...] will see her back in our office nabila as-needed basis. 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 Pt states that since the procedure she is not having any urinary issues. Shefeels like she is emptying well now and UA is clear for any infections. 4. Post-void dribbling (N39.43: Post-void dribbling) pt voices a period 1x a week that lasts for about 5 days and then clears up, this has been going solomon couple times since the last encounter. Pt [...] urine and/or bladder capacity by US- non-imaging 16712 Urnls Dip Stick Auto w/o Microscopy POC 09239 I have reviewed the previous health record information and history for this patient from Dr. Ramos Follow-up With When Contact Information Richard Leal MD, Maximo Dhaliwal, URO Only if needed [facility] [address] [place] [address]- Additional Instructions: Patient Education Urinary Incontinence I, [...] Diverticulosis Dysuria Encounter for screening colonoscopy for xtj-jomn-qyhe patient Hemifacial spasm History of shingles Hyperlipidemia Hypertension Hyperthyroidism Insomnia Nocturia Osteoarthritis Polyneuropathy Post-void dribbling Raynaud phenomenon Recurrent UTI Rosacea Urethral stricture Historical No qualifying data Procedure/Surgical History Hip replacement (12/13/2016), Fusion of lumbar spine (12/06/2011), Ablation (08/18/2005), Excision of sebaceous cyst (08/27/1999), Arthroscopy of knee, Dilatation and curettage, Excision of ganglion cyst, E (more content not included)...[facility] CenterComment on above:Result Comment: Electronically Signed By: Maximo Ramos Jr., MD\.br\Date and Time Signed: 10/27/2111:16 EST\.br\Electronically Co-Signed By: Snow Lundberg MA.mann\Date and Time Co-Signed: 10/27/21 11:12 ESTAmbulatory Clinical Summaryon 06-07-4004Madqkmgzlh Clinical Summary {5o-9y-06-7j-n9-1h-85-2h-67-ta-85-87-b0-23-3f-4e}CD:[id number] County Health CenterPatient Educationon 72-77-4061Nurnubp EducationUrinary Frequency The number of times a normal person urinates depends upon how much liquid they take in and how muchliquid they are losing. If the temperature is hot and there is high humidity then the person will sweat more and usually breathe a little more frequently. These factors decrease the amount of frequency of urination that would be considered normal. The amount you drink is easily determined, but the amount of fluid lost is sometimes more difficultto calculate. Fluid is lost in two ways: [...] from a little less than a quart toa little more than a quart of fluid a day. In normal temperatures and activity levels the average person may urinate 4 to 7 times in a 24-hourperiod. Needing to urinate more often than that [...] the bladder. This loss of sensation makes itharder to sense the bladder needs to be emptied. Over a period of years the bladder is stretched out by constant overfilling. This weakens the bladder muscles so that the bladder does not empty well and has less capacity to fill with new urine. ? Interstitial cystitis (also called painful bladder syndrome). This condition develops because thetissues that line the insider of the bladder [...] contrast dye and then asked to urinate. X- rays are taken to see how your bladder is working. TREATMENT It is important for you to be evaluated to determine if the amount or frequency that you have is unusual or abnormal. If it is found to be abnormal the cause should be determined and this can usuallybe found out easily. Depending upon the cause treatment could include medication, stimulation of the nerves, or surgery. There are not too many things that you can do as an individual to change your urinary frequency. Itis (more content not included)...NormalMercy Health Springfield Regional Medical CenterUrology Office/Clinic Noteon 35-47-6357Rkxoyoq Office/Clinic NoteChief Complaint 6 wk f/u This 65-year-old female [...] the number of infections that she gets inthe next year. We will plan to see [...] procedure, # 2 cap(s), Refills(s) 0, Pharmacy: [facility]/pharmacy #[id number], 172.7, cm, 02/24/21 8:22:00 EDT, Height/Length Dosing, 99.8, kg, 02/24/21 8:21:00 EDT... Urnls Dip Stick Auto w/o Microscopy POC 57632 I have reviewed the previous health record information and history for this pt. from Dr. Ramos. Follow-up With When Contact Information Richard Leal MD, Maximo Dhaliwal, [facility] [address] [place] [address] [place] [address]- Additional Instructions: 6mos. pvr Patient Education Urinary [...] Diverticulosis Dysuria Encounter for screening colonoscopy for los-gnkg-jsdj patient Hemifacial spasm History of shingles Hyperlipidemia Hypertension Hyperthyroidism Insomnia Osteoarthritis Polyneuropathy (more content not included)...[facility] CenterComment on above: Result Comment: Electronically Signed By: Maximo Ramos Jr., MD\.br\Date and Time Signed: 04/23/2112:21 EDT\.br\Electronically Co-Signed By: Indu Gonzalez MA\.br\Date and Time Co-Signed: 04/23/21 11:40 EDTCoding Summary.on 92-83-4674Vcifun Summary. CD:[id number]:[id number]+PGhlYWQ+UK0ZMWHyC33hsEYewP8FE9sHDE4UUQZYNLPGVC5HMU3fs FQ5CHenG0VgvsSt [file] ZTog (more content not included)...NormalMercy Health Springfield Regional Medical CenterConsent for Procedure/Surgeryon 58-00-1944Jtclqnh for Procedure/Surgery [id number]#1.00CD:127NoFulton County Health CenterIntraOperative Documentson 12-77-5337StxbcHhpmgollf Documents [id number]#1.00CD:127NoFulton County Health CenterConsent for Treatmenton 83-45-5767Rrmcejq for Treatment [id number]#1.00CD:127[facility] CenterMain OR Intraoperative Recordon 83-24-5472Nxeq OR Intraoperative Record IntraOp Document Type FTURO Summary Primary Physician: Maxiom Ramos Jr., MD Finalized Date/Time: 03/12/21 13:52:16 Pt. Name: DANYELLE HASKINS/Sex: 1955 Female Med Rec #: [id number] Physician: Maximo Ramos Jr., MD Financial #: [id number] Pt. Type: O Room/Bed: / Admit/Disch: 03/12/21 12:55:35 - Institution: Case Times FTURO Entry 1 Patient Times In Room 03/12/21 13:44:00 Out Room 03/12/21 13:52:00 Procedure Times Start 03/12/21 13:48:00 Stop 03/12/21 13:50:00 Anesthesia Times Last Modified By: Savanna Azevedo RN 03/12/21 13:52:11 Case Attendance FTURO Entry 1 Entry 2 Entry 3 Case Attendee Richard Leal MD, Maximo Hines FELT CHECKER, Savanna Azevedo RN, Savanna Solis Role Performed Surgeon - Primary Scrub - Primary Software Implementation Project Manager - Primary Time In 03/12/21 13:44:00 03/12/21 [...] Signatures Signed By: Savanna Azevedo RN 03/12/21 13:52NoFulton County Health CenterMain OR Preoperative Recordon 11-23-6555Qury OR Preoperative RecordHolding Area Document Type FTURO Summary Primary Physician: Maximo Ramos Jr., MD Finalized Date/Time: 03/12/21 13:23:03 Pt. Name: DANYELLE HASKINS/Sex: 1955 Female Med Rec #: [id number] Physician: Maximo Ramos Jr., MD Financial #: [id number] Pt. Type: O Room/Bed: / Admit/Disch: 03/12/21 [...] or her perioperative plan of care The patient'sright to privacy is maintained Surgery Checklist FTURO [...] LPN 03/12/21 13:08 Savanna Azevedo RN 03/12/21 13:23[facility] CenterOperative Reporton 81-26-2626Saceksvmb ReportPatient: DANYELLE HASKINS Age: 65 years Sex: Female : 1955 Associated Diagnoses: None Author: Richard Leal MD, Maximo Dhaliwal Procedure Operative Information Details: Date/ Time: 03/12/2021 13:52:00. Pre-Op Dx: Hx of UTI's - Z87.440, Urethral Stricture - Female Post Trauma Urethral Stricture Female- N35.028. Post-Op Dx: Same. Anesthesia Type: Local. Procedure: Local Cystoscopy with Urethral Dilation. Complications: None. Risks/Benefits/Informed Consent: Surgical risks, benefits, details of the [...] urine. The Urethra was dilated to: 28 Czech w/ sounds. Devices Implanted: None. Removal: Cystoscope is removed, The patient tolerated it well. Postoperative Information Discharge: Patient is discharged home with antibiotic coverage, Follow up arranged.[facility] Medical CenterComment on above:Result Comment: Electronically Signed By: Richard Leal MD, Maximo Schaffer.br\Date and Time Signed: 03/12/2113:53 EDTLARGE JOINT/BURSA INJECTION AND/OR ASPIRATION: R kneeOrdered By: [place] on 65-83-5351Basid Foster, MD 03/12/2021 2:21 PM LARGE JOINT/BURSA INJECTION [...] immediate complications The patient was prepped with Betadine.[facility] CenterRAD - Ultrasound Reporton [id number] - Ultrasound Report [id number]#1.00CD:127[facility] CenterPhysician Referralon 27-04-5504Ycicbplmr Referral [id number]#1.00CD:127[facility] CenterAmbulatory Clinical Summaryon 79-29-3060Npuuvbseiq Clinical Summary {[id number]-40-9r-1t-m1-28-3d-df-06}CD:568239FrlrlcUuezzp Brandenburg CenterPatient Educationon 58-66-3819Tjsffei EducationUrinary Tract Infection Urinary tract infections (UTIs) can [...] your symptoms. Your caregiver also will ask toprovide a urine sample. The urine sample will [...] exactly as your caregiver instructs you. Finish themedication even if you feel better after you [...] Document Reviewed: 12/01/2012 ExitCare? Patient Information ?2013 [employer].[facility] CenterUrology Office/Clinic Noteon 76-47-2348Ddsiyun Office/Clinic NoteChief Complaint New patient recurring UTI sxs This patient is a 65-year-old female with a history of recurrent urinary tract infections. She was recurrent infections. She is been treated several times with oral antibiotics for symptoms of dysuria frequency and urgency continue to recur. She is here today to discuss treatment options to establish urologic care. [facility] Staff New patient Danyelle is a 65 y.o. female here for recurring UTI sxs. Last culture 01/15/21 is negative.She has burning with urination. Three episodes since December. She does not have a history of UTIs.Denies family hx of bladder cancer. Dysuria: Yes [...] oral antibiotics neither of which have completely eliminatedher symptoms. She is being scheduled for cystoscopy [...] Will order Local anesthesia. ABX sent to [facility] in [place]. Ordered: Urology Procedure Order US Renal 2. Dysuria (R30.0: Dysuria) Moderate. Ordered: Urnls Dip Stick Auto w/o Microscopy POC 09087 Urology Procedure Order US Renal 3. Nocturia [...] procedure, # 2 cap(s), Refills(s) 0, Pharmacy: [facility]/pharmacy #[id number], 172.7, cm, 02/24/21 8:22:00 EDT, Height/Length Dosing, 99.8, kg, 02/24/21 8:21:00 (more content not included)...[facility] CenterComment on above:Result Comment: Electronically Signed By: Richard Leal MD, Maximo Dhaliwal\.br\Date and Time Signed: 02/24/2109:35 EDT\.br\Electronically Co-Signed By: Indu Gonzalez MA\.br\Date and Time Co- Signed: 02/24/21 08:56 EDTLARGE JOINT/BURSA INJECTION AND/OR ASPIRATION: R knee on 44-41-6827Eumtj Foster, MD 11/27/2020 2:34 PM LARGE JOINT/BURSA INJECTION AND/OR ASPIRATION: R knee Date/Time:11/19/2020 2:10 PM Supporting Documentation Indications: pain Procedure Details: Location: knee - R knee Local Anesthetic: ethyl chloride (cold spray) Needle size: 22 G Medication Verification: I have personally verified and performed the final check of the medication(s) used in this procedure priorto administration. The following items were included during the verification process for medication(s) administered: drug name, strength, volume, expiration, physical integrity and appearance of the medication(s). Medications administered: 5 mL lidocaine 1% (PF) 1 %; 1 mL triamcinolone 40 MG/ML Patient tolerance: patient tolerated the procedure well with no immediate complications The patient wasprepped with Betadine.Digital DandelionCT UPPER EXTREMITY WO CONTRAST RIGHTon 79-08-0427UH UPPER EXTREMITY WO CONTRAST RIGHT [facility] Department of Radiology [address] [place] [id number] Patient Name: DANYELLE HSAKINS : 1955 Sex: F Age: Race: White Pt. Location: Patient Status: O Ordered Date: 03/10/2020 2:25:00 PM Completed Date: 03/10/2020 04:00 PM Requesting Provider: JOE ZUNIGA Attending Provider: JOE ZUNIGA Report Copy To: YULISA BATRES Signs & Symptoms: S42.201A Unsp fracture of upper end of right humerus, init I10 History: Susan Patient to go to clinic after call results to [phone] [facility] clinic NO MEDICARE/BC CPT CODE 88455 *MLA Comments: right shoulder Exam: CT UPPER EXTREMITY WO CONTRAST RIGHT CT UPPER EXTREMITY WO CONTRAST RIGHT 03/10/2020 [...] reports Electronically signed: Abdelrahman Constantino. Transcribed by: [email or web address], User Resident: ISABELL MARKHAM Electronically Signed by: ABDELRAHMAN CONSTANTINO @ 03/10/2020 04:46 PM I personally read this/these film(s) with this [facility] NorthComment on above:Order Comment: right shoulderSHOULDER RIGHTon [id number] [facility] Department of Radiology [address] [place] [id number] Patient Name: DANYELLE HASKINS : 1955 Sex: F Age: Race: White Pt. Location: 84 Patient Status: O Ordered Date: 03/10/2020 2:05:00 PM Completed Date: 03/10/2020 02:13 PM Requesting Provider: JOE ZUNIGA Attending Provider: Report Copy To: Signs & Symptoms: S42.201A Unsp fracture of upper end of right humerus, init I10 History: [place] Comments: , Views (X-RAY, SHOULDER): Axillary , Weight Bearing?: N Exam: SHOULDER RIGHT SHOULDER RIGHT 03/10/2020 2:14 PM SIGNS AND [...] reports Electronically signed: Abdelrahman Constantino. Transcribed by: [email or web address], User Resident: ISABELL MARKHAM Electronically Signed by: ABDELRAHMAN CONSTANTINO @ 03/10/2020 04:48 PM I personally read this/these film(s) with this [facility] NorthComment on above:Order Comment: , Views (X-RAY, SHOULDER): Axillary , Weight Bearing?: NLARGE JOINT INJECTION: R kneeon [id number] Mcclure MD 11/23/2019 2:44 PM LARGE JOINT INJECTION: R knee Date/Time: 11/21/2019 2:00 PM Supporting Documentation Indications: pain Procedure Details Location: knee - R knee Local Anesthetic Used: mL of ethyl chloride (cold spray) Needle size: 22 G Medication Verification: I have personally verified and performed the final check of the medication(s) used in this procedure prior to administrat ion. The following items were included during the verification process for medication(s) administered: drug name, strength, volume, expiration, physical integrity and appearance of the medication(s).Medications administered: 5 mL lidocaine 1% (PF) 1 %; 1 mL triamcinolone 40 MG/ML Patient tolerance: patient tolerated the procedure well with no immediate complications Preparation: with Betadine.[facility], EDIF, PLATELETon [id number] BASOPHIL COUNT0.[id number]Basophils/100 WBC (Bld)0.6 %0 - 2 %[address] Differential cell count method Nom (Bld)AUTO DIFF%[address]Eosinophils #/vol (Bld)0.00 10*3/zFA77KJFVIAK[address]Eosinophils/100 WBC (Bld)1.0 %0 - 11 %[address]Erythrocyte distribution width Ratio (RBC)14.2 %11.5 - 14.5 %[address]ETHematocrit Volume Fraction (Bld)33.5 %Low36 - 48 % [address]ETHemoglobin mass conc (Bld)11.5 g/dLLow[address] Interpretation and review of laboratory resultsAbnormalONT24 [address]ETLymphocytes #/vol (Bld)0.70 10*3/uLX10 [address]Lymphocytes/100 WBC (Bld)16.1 %Low20 - 55 %[address] MCH Entitic mass (RBC)34.6 pg26 - 35 PG[address]MCHC mass conc (RBC)34.2 g/dL04 [address]ETMCV Entitic volume (RBC)101.1 fL[address] StreetMonocytes #/vol (Bld)0.4 10*3/bLE64PTYLHGR[address]Monocytes/100 WBC (Bld)9.9 %0 - 10 %[address]Neutrophils #/vol (Bld)3.3 10*3/[address] Neutrophils/100 WBC (Bld)72.4 %37 - 75 %[address]Platelet mean volume Entitic volume (Bld)7.[address]LO[address]Platelets #/vol (Bld)191 10*3/uL [address]RBC #/vol (Bld)3.31 10*6/uL[address] StreetWBC #/vol (Bld)4.5 10*3/32 [address] StreetCBC, EDIF, PLATELETon [id number] BASOPHIL COUNT0.5K59KJKFTYG[address]Basophils/100 WBC (Bld)0.2 %0 - 2 %[address]Differential cell count method Nom (Bld)AUTO DIFF%[address] Eosinophils #/vol (Bld)0.00 10*3/xPK26LRENRWL[address] [place], [place] [address]Eosinophils/100 WBC (Bld)0.1 %0 - 11 %[address]Erythrocyte distribution width Ratio (RBC)13.8 %11.5 - 14.5 %[address]ETHematocrit Volume Fraction (Bld)30.2 %Low36 - 48 %[address]ETHemoglobin mass conc (Bld)10.5 g/dL92 [address] StreetInterpretation and review of laboratory results Abnormal[address]Lymphocytes #/vol (Bld)0.50 10*3/qLF34AEFSBLG[address] [place], [place] [address]Lymphocytes/100 WBC (Bld)8.9 %Low20 - 55 %[address] Entitic mass (RBC)34.8 pg26 - [address]HC mass conc (RBC)34.8 g/dL [address]V Entitic volume (RBC) 99.8 [address] StreetMonocytes #/vol (Bld)0.6 10*3/kQR92ZCTXWUT[address] [place] [address] Monocytes/100 WBC (Bld)10.2 %High0 - 10 %[address]Neutrophils #/vol (Bld)4.5 10*3/32 [address] StreetNeutrophils/100 WBC (Bld)80.6 %High37 - 75 %[address]Platelet mean volume Entitic volume (Bld)7.5 [address] StreetPlatelets #/vol (Bld)181 10*3/32 [address] StreetRBC #/vol (Bld)3.02 10*6/03 [address] StreetWBC #/vol (Bld)5.6 10*3/32 [address] StreetCBC, EDIF, PLATELETon 83-06-3536IVJHOKYL BASOPHIL COUNT0.8O27SHYLEPU[address]Basophils/100 WBC (Bld)0.2 %0 - 2 %[address] Differential cell count method Nom (Bld)AUTO DIFF%[address]Eosinophils #/vol (Bld)0.00 10*3/uZA76JNINGTH[address]ETEosinophils/100 WBC (Bld)0.7 %0 - 11 %[address]Erythrocyte distribution width Ratio (RBC)13.9 %11.5 - 14.5 %[address]ETHematocrit Volume Fraction (Bld)33.6 %Low36 - 48 % [address]ETHemoglobin mass conc (Bld)11.5 g/dLLow[address] Interpretation and review of laboratory resultsAbnormalONT24 [address]ETLymphocytes #/vol (Bld)0.70 10*3/uLX10 [address]Lymphocytes/100 WBC (Bld)14.4 %Low20 - 55 %[address] MCH Entitic mass (RBC)34.7 pg26 - 35 PG[address]ETMCHC mass conc (RBC)34.1 g/dL04 [address]ETMCV Entitic volume (RBC)101.8 fLHigh[address]ETMonocytes #/vol (Bld)0.5 10*3/nAB57WTZLDFB[address]ETMonocytes/100 WBC (Bld)9.8 %0 - 10 %[address]Neutrophils #/vol (Bld)3.7 10*3/uLNATASHA VILLE 68[address] [facility] Neutrophils/100 WBC (Bld)74.9 %37 - 75 %[address]Platelet mean volume Entitic volume (Bld)7.2 fL92 [address] StreetPlatelets #/vol (Bld)202 10*3/32 [address] StreetRBC #/vol (Bld) 3.30 10*6/03 [address] StreetWBC #/vol (Bld)4.9 10*3/32 [address] StreetREPEAT ABO/RH (D) TYPINGon 42-50-8830DEM and Rh group Nom (Bld )Positive04 [address]ETSCREEN: MRSA ONLY, NARES (ISOLATION SCREEN)on 65-51-7673UBFH isol Org specific cx Ql (Nose)Negative [address]STAPHYOCOCCUS AUREUS BY PCRNegative[address]Comment on above:TESTING PERFORMED BY PCRXR KNEE LEFT 2 VIEWSon 48-41-1178Iuun, Interfaces - 11/21/2018 3:12 PM EST XR [...] evidence of joint malalignment or acute fracture. RADIOLOGYXR KNEE LEFT 2 VIEWS CLINICAL STATEMENT: Postop extensor mechanism repair. COMPARISON: Left knee series August 01, 2018. TECHNIQUE: AP and lateral views of the left knee. FINDINGS: Left knee bracepartially obscures the bones on the lateral projection. Left knee arthroplasty remains in stable ali gnment. Surgical drain overlies the suprapatellar region. Single threaded screw at the tibial tuberosity.RADIOLOGYIMPRESSION: Postsurgical changes with no evidence of joint malalignment or acute fracture.RADIOLOGYBasic Metabolic Panel on 27-54-5081Aoruikv0.2 mg/dLNormal8.4-10.2OhioBucyrus Community HospitalComment on above:Performed By: #### CHEM8 ####Unless otherwise noted, all testing performed by [address] [phone]: [id number] Director: Ramon Araujo M.D.Gwgrhbkb708 mmol/AZauv18-[address] [facility] HospitalComment on above:Performed By: #### CHEM8 ####Unless otherwise noted, all testing performed by [address] [phone]: [id number] Director: Ramon Araujo M.D.CO227 mmol/NIrgdhk52-11RkojCdyfsvMercy Health St. [facility] Comment on above:Performed By: #### CHEM8 ####Unless otherwise noted, all testing performed by [address] [phone]: [id number] Director: Ramon Araujo M.D.Creatinine0.60 mg/dLNormal 0.60-1.20[facility] HospitalComment on above:Performed By: #### CHEM8 ####Unless otherwise noted, all testing performed by [address] [phone]: [id number] Director: Ramon Araujo M.D.eGFR (black)mL/min/{1.73_m2}NormalMercy Health St. Elizabeth Boardman HospitalComment on above:Result Comment: GFR CalcPerformed By: #### CHEM8 ####Unless otherwise noted, all testing performed by [address] [phone]: [id number] Director: Ramon Van, M.D.eGFR (non-black)mL/min/{1.73_m2}NormalMary Rutan Hospital on above:Result Comment: Non- GFR CalceGFR is an estimated Glomerular Filtration Rate based on the valueof the patient's serum creatinine. In outpatients, eGFR should be usedas a helpful tool in screening for CKD. In inpatients or patients withacute renal failure, eGFR represents the GFR at the moment of the drawand should be used with caution.Performed By: #### CHEM8 ####Unless otherwise noted, all testing performed by [address] [phone]: [id number] Director: Ramon Araujo M.D.Glucose mass conc87 mg/gWRyqavi97-11OstoZuxzsmMary Rutan Hospital on above:Result Comment: This test result might be falsely depressed or falsely elevated onsamples drawn from patients taking Sulfasalazine and Sulfapyridine.Venipuncture should occur prior to taking either of these drugs.Performed By: #### CHEM8 ####Unless otherwise noted, all testing performed by [address] [phone]: [id number] Director: Ramon Araujo M.D.Potassium molar conc4.2 mmol/LNormal3.5-5.1[facility] on above:Performed By: #### CHEM8 ####Unless otherwise noted, all testing performed by [address] [phone]: [id number] Director: Ramon Araujo M.D.Ahrpaf296 mmol/DSbpufx974-579GtgkTqvhcgMary Rutan Hospital on above: Performed By: #### CHEM8 ####Unless otherwise noted, all testing performed by [address] [phone]: [id number] Director: Ramon Araujo M.D.Urea mg/dLNormal8-25[facility] HospitalComment on above:Performed By: #### CHEM8 ####Unless otherwise noted, all testing performed by [place] [address] [address], [place] [phone]: [id number] Director: Ramon Araujo M.D.[facility] Reporton 05-31-2906[facility] ReportType: OrthopedicDictated by: To be signed by: Transcribed by: Transcribed D/ Dictation D/ Report: DATE OF VISIT: 08/11/2017 HISTORY OF PRESENT ILLNESS: Ms. Haskins underwent left patellar tendon repair and inferior partial patellectomy on 07/18/2017 three weeks ago.She is doing well. She is at a senior living with a knee immobilizer locked out in extension and has been non-weightbearing. She is doing very well. She is happy with her recovery to date. She is having minimal pain, using only Tylenol at this time. She is planning to be discharged from the senior living next week when she has a wheelchair [...] has no unaddressed concerns today. PHYSICAL EXAMINATION: Todayshe is 5-foot-8, 212 pounds. Temperature is 98.1. Pain is 0 out of 10. Her incision is healing very nicely. There is no erythema, drainage, or dehiscence. There is just mild global knee swelling. Shehas soft calves that are nontender. Shane's sign is negative. She does have some mild distal left lower extremity swelling, and the foot is inverting slightly. DIAGNOSTIC STUDIES/INTERPRETATIONS/IMPRESSIONS: X-ray was reviewed, and there are no significant findings. There is no palpable drop off ofthe patellar tendon, and to external exam everything [...] that she may shower at the senior living only using a shower chair with a shower stool. The knee should be in extension before the brace comes off and should remain in extension until the brace goes back on. She should not stand while not wearing the brace. This was all relayed via instructions to the senior living. We will see her back in three weeks. Dictated by KAREEM Croft, for Dr. Mcclure.[facility] HospitalHistory and [facility] Reporton [id number] and Physical ReportType: SurgicalDictated by: To Be Signed by: Transcribed by: Transcribed Date/Time: 06/23/2017 11:46Dictation Date/Time: 06/22/2017 17:52Report: DATE OF VISIT: 06/22/2017 HISTORY OF PRESENT ILLNESS: Patient is here today for evaluation and treatment of her failed left total knee arthroplasty. She isan established patient of [facility]. She was last seen on 04/27/2017, diagnosed [...] Sister with diabetes and cancer. SOCIAL HISTORY: Thepatient lives alone. She does not have any [...] have transportation to go to outpatient therapy [facility]. The patient has a walker, commode chair, shower chair, and a cane in the home for equipment. She is not followed by cardiology. The patient is followed by Dr. Jeffrey of pain management. The patient is followed by Dr. Monaco, a lehr stripper and by Dr. Lili Parks, a neurologist. REVIEW OF SYSTEMS: Constitutional: Positive for Insomnia. Eyes: Positive for recent vision change, cataracts bilateral. ENT: Negative. Cardiovascular: Negative. Respiratory: Negative. Gastrointestinal: Positive for ulcer and acid reflux. Musculoskeletal: Positive for arthrits, back pain, muscle weakness, joint pain, and swelling in multiple joint, left knee and right hip. SkiN: Negative. Neurologic: Positive fornumbness in both feet. Positive for leg pain and sciatica. Psychiatric: Positive for depression. Hematologic: Positive for blood transfusion 2013 from bleeding ulcer. Positive for easy bruising. Endocrine: Positive for prednisone use. MEDICATIONS: Pantoprazole. Hydroxychloroquine. Arava. Boniva. Methotrexate. Baclofen. Zonisamide. Calcium Plus D. Multi-vitamin. Glucosamine. Tylenol arthritis. Metamucil. Biotin. Alpha Lipoic acid. Magnesium Oxide. Tramadol. Triamterene HCTZ. Amoxicillin. Lidocain e. Prednisone. ALLERGIES: NO KNOWN DRUG ALLERGIES. METAL [...] incision that is well healed. She has apalpable defect over the anterior knee. She has some discomfort in this area. She has range of motion today; actively it is around 25-115 degrees. She has some strength with terminal extension, but is unable to actively increase it to neutral as I can passively. Normal stability within the knee, ful l motion of the hip, no pain, no impingement. DIAGNOSTIC STUDY/INTERPRETATION/IMPRESSION: Plain film radiographs were reviewed. She has, [...] complications with nonoperative management. She has a v lane arthritic right knee that she would like to take care of and is going to be at risk of failure with this as well as continued failure of her left knee, which could cause significant morbidity andpotentially mortality. As such, my recommendation for surgery would be for an attempt at direct patellar tendinous repair with possible fixation of the patella versus patellectomy, and also to have then extensor mechanism reconstruction as a backup. The nature of this operation, the risks, benefitsand alternatives and the perioperative course, were thoroughly [...] in advance of surgery and 2 weeks postoperatively.[facility] [id number] Type: OutpatientDictated by: Signed by: Transcribed by: Transcribed Date/Time: 06/23/2017 11:47Dictation Date/Time: 06/22/2017 17:52Report: DATE OF SERVICE: 06/22/2017 DIAGNOSTIC STUDY/INTERPRETATION/IMPRESSION: Plain film radiographs were reviewed. She has, what appears to be, a cemented Lilo total knee arthroplasty posterior stabilized, in fair position and alignment. It does not appear to beloose. 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 He discussed reconstruction and she wasin agreement. The patient was therefore admitted 07/18/17 [...] significant, and pain medicine is effective. She washaving diarrhea at first and stool softeners were discontinued and she was placed on Questran and now she is having one bowel movement a day but they are still loose. There is no blood in it and she is no having no fever or chills. The patient denies any other complaints at this time. PAST MEDICAL H ISTORY: Positive for osteoarthritis, depression, insomnia, and gastroesophageal reflux disease. PAST SURGICAL HISTORY: Hysterectomy, joint replacement 09/01/15, spine surgery L2, 3, 4, and 5 in 2012.FAMILY HISTORY: Positive for cancer and heart disease as well as hypertension and diabetes. SOCIAL HISTORY: She lives alone and has no children. No smoking, alcohol, or drug use. The patient is seen by a lehr stripper, has a pain specialist, and a neurologist. [...] been discontinued, Dyazide one capsule every 24 hoursp.r.n. edema, glucosamine chondroitin tablet one p.o. daily, [...] sweats, or significant weight change. HEENT: she deniesheadache, dizziness, difficulty eating and swallowing. Respiratory: no shortness of breath, coughing, or wheezing. Cardiovascular: no chest pain, chest pressure, regular or rapid heartbeats. GI: she does have the loose stools as noted but it is improved with Questran. No bloody or tarry stools. Shedenies abdominal pain, nausea, vomiting, or heartburn. : [...] knee dressing is intact and in place withouterythema or drainage. HEENT: head is normocephalic and nares patent with satisfactory oromucosa. Neck: no JVD or thyromegaly. Cardiovascular: heart rate and rhythm regular without ectopy or murmur. Respiratory: lungs are clear to auscultation without wheeze or rhonchi. Abdomen is soft and nontenderwith good bowel sounds. Musculoskeletal: she is in [...] and OT. 2) Orders reviewed and continue same.[facility]. difficile Assayon 07-24-2017C. difficile interpretationNegativeNoChildren's Hospital for Rehabilitation Comment on above:Result Comment: Rapid test procedural control acceptable. Performed By: #### zCDIF ####Unless otherwise noted, all testing performed by [address] [phone]: [id number] Director: Ramon Araujo M.D.Specimen Acceptable (CDIF)on 09-10-2991Pkrcdaps Acceptable (CDIF)YESNoChildren's Hospital for RehabilitationComment on above:Result Comment: C. difficile testing result(s) to follow.Performed By: #### CDSPEC ####Unless otherwise noted, all testing performed by [address] [phone]: [id number] Director: Ramon Araujo M.D.CBC with Diffon [id number] Auto #/vol (Bld)0.0 K/mcLNormal0-0.2[facility] HospitalComment on above:Performed By: #### CBCDIF, CMET, TSH ####Unless otherwise noted, all testing performed by [address] [phone]: [id number] Director: Ramon Araujo M.D. Basophils/100 WBC Auto (Bld)0.5 %[facility] on above:Performed By: #### CBCDIF, CMET, TSH ####Unless otherwise noted, all testing performed by [address] [id number] [phone]: [id number] Director: Ramon Araujo M.D.Eosinophils0.1 K/mcLNormal0-0.5OhLake County Memorial Hospital - WestComment on above: Performed By: #### CBCDIF, CMET, TSH ####Unless otherwise noted, all testing performed by [address] [phone]: [id number] Director: Ramon Araujo M.D.Eosinophils/100 leukocytes1.7 % [facility] NorthComment on above:Performed By: #### CBCDIF, CMET, TSH ####Unless otherwise noted, all testing performed by [address] [phone]: [id number] Director: Ramon Araujo M.D.Erythrocyte distribution width Auto Ratio (RBC)14.6 %High 10.0-14.4[facility] HospitalComment on above:Performed By: #### CBCDIF, CMET, TSH ####Unless otherwise noted, all testing performed by [address] [phone]: [id number] Director: Ramon Araujo M.D.Erythrocytes (RBC)3.32 M/mcLLow3.7-5.0[facility] HospitalCombeaumont hospital on above:Performed By: #### CBCDIF, CMET, TSH ####Unless otherwise noted, all testing performed by [address] [phone]: [id number] Director: Ramon Araujo M.D.Hematocrit (HCT)33.9 %Low34.4-44.8[facility] HospitalCombeaumont hospital on above:Performed By: #### CBCDIF, CMET, TSH ####Unless otherwise noted, all testing performed by [address] [phone]: [id number] Director: Ramon Araujo M.D.Hemoglobin mass conc (Bld)11.8 g/hCQrqupl28.6-15.4[facility] HospitalCombeaumont hospital on above: Performed By: #### CBCDIF, CMET, TSH ####Unless otherwise noted, all testing performed by [address] [phone]: [id number] Director: Ramon Araujo M.D.Lymphocytes0.8 K/mcLLow1.0-3.[address] [facility] HospitalCom[facility] hospital on above:Performed By: #### CBCDIF, CMET, TSH ####Unless otherwise noted, all testing performed by [address] [phone]: [id number] Director: Ramon Araujo M.D.Lymphocytes/100 feduhzfcva67.3 %NormalMercy Health St. Elizabeth Board[facility] HospitalCombeaumont hospital on above:Performed By: #### CBCDIF, CMET, TSH ####Unless otherwise noted, all testing performed by [address] [phone]: [id number] Director: Ramon Araujo M.D.MCH35.6 pg High27.9-33.9[facility] on above:Performed By: #### CBCDIF, CMET, TSH ####Unless otherwise noted, all testing performed by [address] [phone]: [id number] Director: Ramon Araujo M.D.MCHC mass conc (RBC)34.8 g/cMZiawhz17.1-35.1[facility] on above:Performed By: #### CBCDIF, CMET, TSH ####Unless otherwise noted, all testing performed by [address] [phone]: [id number] Director: Ramon Araujo M.D.LCK746.1 aXHffj22.6-98.9[facility] on above: Performed By: #### CBCDIF, CMET, TSH ####Unless otherwise noted, all testing performed by [address] [phone]: [id number] Director: Ramon Araujo M.D.Monocytes0.6 K/mcLNormal0.1-0.6 [facility] on above:Performed By: #### CBCDIF, CMET, TSH ####Unless otherwise noted, all testing performed by [address], [place] [phone]: [id number] Director: Ramon Araujo M.D.Monocytes/100 zxjakthvcn11.1 %NormalMercy Health St. [facility] HospitalCombeaumont hospital on above:Performed By: #### CBCDIF, CMET, TSH ####Unless otherwise noted, all testing performed by [address] [id number] [phone]: [id number] Director: Ramon Araujo M.D.Neutrophils3.1 K/mcLNormal1.2-6.9[facility] on above: Performed By: #### CBCDIF, CMET, TSH ####Unless otherwise noted, all testing performed by [address] [phone]: [id number] Director: Ramon Araujo M.D.Platelet mean volume (PMV)7.4 fL Normal7.0-10.6[facility] HospitalCombeaumont hospital on above: Performed By: #### CBCDIF, CMET, TSH ####Unless otherwise noted, all testing performed by [address] [phone]: [id number] Director: Ramon Araujo M.D.Avnzjnetp229 K/stGVlrhvo799-[address] [facility] HospitalCom[facility]aum[facility] hospital on above:Performed By: #### CBCDIF, CMET, TSH ####Unless otherwise noted, all testing performed by [address] [phone]: [id number] Director: Ramon Araujo M.D.Segmented Neut %66.4 %NormalMercy Health St. Elizabeth [facility] HospitalCombeaumont hospital on above:Performed By: #### CBCDIF, CMET, TSH ####Unless otherwise noted, all testing performed by [address] [phone]: [id number] Director: Ramon Araujo M.D.WBC (Leukocytes) 4.6 K/mcLNormal3.4-10.6[facility] HospitalCom[facility]aumont hospital on above:Performed By: #### CBCDIF, CMET, TSH ####Unless otherwise noted, all testing performed by [address] [phone]: [id number] Director: Ramon Araujo M.D.Comprehensive Metabolic Panel 91-60-9309Ditzuxt aminotransferase (ALT)27 U/IVtcaic20-39BkeeSzuifpMercy [facility] on above:Result Comment: This test result might be falsely depressed or falsely elevated onsamples drawn from patients taking Sulfasalazine and Sulfapyridine.Venipuncture should occur prior to taking either of these drugs.Performed By: #### CBCDIF, CMET, TSH ####Unless otherwise noted, all testing performed by [address] [phone]: [id number] Director: Ramon Araujo M.D.Albumin2.8 g/dLLow3.2-5.2 [facility] on above:Performed By: #### CBCDIF, CMET, TSH ####Unless otherwise noted, all testing performed by [address] [phone]: [id number] Director: Ramon Araujo M.D.Alkaline phosphatase (ALP)53 U/JJobzuc14-981IbtbQobyfzMercy Health St[facility] HospitalComment on above:Performed By: #### CBCDIF, CMET, TSH ####Unless otherwise noted, all testing performed by [address] [phone]: [id number] Director: Ramon Araujo M.D.Aspartate aminotransferase (AST)32 U/LNormal0-45[facility] Comment on above:Result Comment: This test result might be falsely depressed or falsely elevated onsamples drawn from patients taking Sulfasalazine and Sulfapyridine.Venipuncture should occur prior to taking either of these drugs. Performed By: #### CBCDIF, CMET, TSH ####Unless otherwise noted, all testing performed by [address] [phone]: [id number] Director: Ramon Araujo M.D.Bilirubin (total)0.9 mg/dLNormal 0.3-1.2[facility] HospitalComment on above:Performed By: #### CBCDIF, CMET, TSH ####Unless otherwise noted, all testing performed by [address] [phone]: [id number] Director: Ramon Araujo M.D.Calcium8.7 mg/dLNormal8.4-10.2[facility] HospitalComment on above:Performed By: #### CBCDIF, CMET, TSH ####Unless otherwise noted, all testing performed by [address] [id number] [phone]: [id number] Director: Ramon Araujo M.D.Wjrxvanh575 mmol/IGfxxqs40-505YiawFiqflkMercy Health St[facility]Com[facility] on above: Performed By: #### CBCDIF, CMET, TSH ####Unless otherwise noted, all testing performed by [address] [phone]: [id number] Director: Ramon Araujo M.D.CO226 mmol/UNdeemw11-16TvpnXtbkvuMary [facility] Hospital on above:Performed By: #### CBCDIF, CMET, TSH ####Unless otherwise noted, all testing performed by [address] [phone]: [id number] Director: Ramon Araujo M.D.Creatinine0.57 mg/dLLow0.60-1.20[facility] on above:Performed By: #### CBCDIF, CMET, TSH ####Unless otherwise noted, all testing performed by [address] [id number] [phone]: [id number] Director: Ramon Araujo M.D.eGFR (black) mL/min/{1.73_m2}[facility]: Result Comment: GFR CalcPerformed By: #### CBCDIF, CMET, TSH ####Unless otherwise noted, all testing performed by [address] [phone]: [id number] Director: Ramon Araujo M.D.eGFR (non-black)mL/min/{1.73_m2}[facility] Comment on above:Result Comment: Non- GFR CalceGFR is an estimated Glomerular Filtration Rate based on the valueof the patient's serum creatinine. In outpatients, eGFR should be usedas a helpful tool in screening for CKD. In inpatients or patients withacute renal failure, eGFR represents the GFR at the moment of the drawand should be used with caution.Performed By: #### CBCDIF, CMET, TSH ####Unless otherwise noted, all testing performed by [address] [phone]: [id number] Director: Ramon Araujo M.D.Glucose mass conc86 mg/eSKpwqzm24-35BzwmGwggnwMary [facility] on above:Result Comment: This test result might be falsely depressed or falsely elevated onsamples drawn from patients taking Sulfasalazine and Sulfapyridine.Venipuncture should occur prior to taking either of these drugs.Performed By: #### CBCDIF, CMET, TSH ####Unless otherwise noted, all testing performed by [address] [phone]: [id number] Director: Ramon Araujo M.D.Potassium molar conc3.7 mmol/L Normal3.5-5.1[facility] on above:Performed By: #### CBCDIF, CMET, TSH ####Unless otherwise noted, all testing performed by [address] [phone]: [id number] Director: Ramon Araujo M.D.Protein6.1 g/dLNormal6.0-8.0[facility] on above:Performed By: #### CBCDIF, CMET, TSH ####Unless otherwise noted, all testing performed by [address] [id number] [phone]: [id number] Director: Ramon Araujo M.D.Vsxitf763 mmol/L Xkmmdg201-180OwubKvmbrpMercy Health St[facility]Com[facility] on above:Performed By: #### CBCDIF, CMET, TSH ####Unless otherwise noted, all testing performed by [address] [phone]: [id number] Director: Ramon Araujo M.D.Urea tcrrkcup33 mg/dLNormal8-25[facility]Com[facility] on above:Performed By: #### CBCDIF, CMET, TSH ####Unless otherwise noted, all testing performed by [address] [id number] [phone]: [id number] Director: Ramon Araujo M.D.[facility] Thyroid stimulating hormone (TSH)1.67 uIU/mLNormal0.320-5.000[facility] on above:Performed By: #### CBCDIF, CMET, TSH ####Unless otherwise noted, all testing performed by [address] [phone]: [id number] Director: Ramon Araujo M.D.[facility] [phone] NOTESNormalAvita Meeker [facility] NOTEon 07-21-2017 [facility] NOTESNormalAvita Meeker HospitalOSU NOTESNormalAvita Meeker HospitalOSU NOTESNormalAvita Meeker HospitalOSU NOTESNormalAvita Meeker HospitalOSU NOTES NormalAvita Meeker HospitalOSU NOTESNormalAvita Meeker HospitalFormerly [facility] 40-52-2575OYJ [facility] CAC NOTESNormalAvita Meeker HospitalOSU NOTESNormalAvita Meeker HospitalOSU [facility] CAC NOTESNormalAvita Meeker HospitalOSU NOTESNormalAvita Meeker HospitalOSU [facility] CAC NOTESNormalAvita Meeker HospitalOSU NOTESNormalAvita Meeker HospitalPROGRESSon 07-37-0459VTO NOTESNormalAvita Meeker HospitalOSU NOTESNormalAvita Meeker HospitalOSU NOTESNormalAvita Meeker HospitalOSU NOTES NormalAvita Meeker HospitalNURSING NOTEon 73-30-1240CSU NOTESNormalAvita Meeker HospitalOSU NOTESNormalAvita Meeker HospitalOSU NOTESNormal[facility] Hospital [facility] NOTESNormalAvita Meeker HospitalPRIME HEALTHCARE SERVICESon 38-46-5150RYY [facility] CAC NOTES NormalAvita Meeker HospitalOSU NOTESNormalAvita Meeker HospitalOSU [facility] CAC NOTES NormalAvita Meeker HospitalOSU NOTESNormalAvita Meeker HospitalPROGRESSon 40-01-3022ISV NOTESNormalAvita Meeker HospitalOSU NOTESNormalAvita Meeker HospitalOSU NOTESNormalAv[facility] Meeker HospitalOSU NOTESNormal[facility] Hospital [facility] NOTESNormalAv[facility] HospitalOSU NOTESNormalAv[facility] Me[facility] HospitalOSU NOTESNormalAvita Meeker HospitalOSU NOTESNormalAvita Meeker HospitalOSU NOTES NormalAvita Meeker HospitalOSU NOTESNormalAvita Meeker HospitalOSU NOTESNormal Av[facility] Meeker HospitalAnes Post-opon 75-88-5780WPL [facility] CAC NOTESNormalAvita Meeker HospitalCONSULTon 19-58-4295ESD NOTESNormalAvita Meeker Hospital [facility] [place] [facility] 95-43-8428LAU [facility] CAC NOTESNormalAvita Meeker HospitalNURSING NOTEon 44-15-2371NFY NOTESNormalAvita Meeker HospitalOSU NOTESNormalAvita Meeker HospitalOSU NOTESNormalAv[facility] Meeker HospitalOSU NOTESNormalAv[facility] Me[facility] HospitalOSU NOTESNormalAv[facility] HospitalOSU NOTESNormal[facility] Hospital [facility] NOTESNormalAv[facility] Meeker HospitalOSU NOTESNormalAv[facility] Meeker HospitalOSU NOTESNormalAv[facility] Meeker HospitalOSU NOTESNormalAv[facility] Meeker HospitalOSU NOTES NormalAvita Meeker HospitalOSU NOTESNormalAvita Meeker HospitalPLAN OF CAREon 31-21-4717UOM HIM CAC NOTESNormalAvita Meeker HospitalOSU NOTESNormalAvita Meeker HospitalOSU HIM CAC NOTESNormalAvita Meeker HospitalOSU NOTESNormalAvita Meeker HospitalPROGRESSon 71-63-8076WCN NOTESNormalAvita Meeker HospitalOSU NOTESNormalAv[facility] Meeker HospitalOSU NOTESNormalAv[facility] Meeker HospitalOSU NOTES NormalAv[facility] Meeker HospitalOSU NOTESNormalAvita Meeker HospitalOSU NOTESNormal [facility] HospitalOSU NOTESNormalAv[facility] Meeker HospitalOSU NOTESNormalAvita Meeker HospitalOSU NOTESNormalAvita Meeker HospitalBRIEF OP NOTon 03-10-3960BNG HIM CAC NOTESNormalAvita Meeker HospitalOP NOTEon 45-48-5758FMW NOTESNormalAvita Meeker HospitalOR NURSINGon 75-16-3265XKO HIM CAC NOTESNormalAvita Meeker HospitalXR KNEE LEFT 2 VIEWSon 27-04-4253XP KNEE LEFT 2 VIEWSXR KNEE LEFT 2 VIEWSEXAM: Left knee, 2 views.INDICATION: Status post total left knee arthroplasty.COMPARISON: None.FINDINGS: There are post total left knee arthroplasty changes identified, including soft tissue swelling, soft tissue emphysema, and surgical clips within the anterior compartment. Thealignment is satisfactory.IMPRESSION:Status post total left knee arthroplasty changes as above in satisfactory alignment.[facility]PRO[facility]on [facility]2017 [facility] Vital Signs Date TimeVital SignValuePerforming YzclgnqzxJwotealy18-05-6464 09:46-0400 Diastolic blood hjekrmss448 mm[Hg]Yulisa Batres MD Work Phone: [facility]09-16-2025 09:46-0400 Heart rate67 /Martin Batres MD Work Phone: [facility]09-16-2025 09:46-0400 SaO2% (BldA) [Mass fraction]96 %Yulisa Batres MD Work Phone: [phone] [place], [place] 8914709-16-2025 09:46-0400 Systolic blood afhsydae873 mm[Hg]Yulisa Batres MD Work Phone: [phone] [place], [place] 6125109-10-2025 10:44-0400 Body nbyoiy83.96 kgDolemuel Batres MD Work Phone: [phone])944-[address] [place], [place] 8914709-10-2025 10:44-0400 Diastolic blood mxofjird859 mm[Hg]Yulisa Batres MD Work Phone: [phone])[address] [place], [place] 6125109-10-2025 10:44-0400 Heart rate69 /Martin Batres MD Work Phone: [phone])[address]09-10-2025 10:44-0400 SaO2% (BldA) [Mass fraction]95 %Yulisa Batres MD Work Phone: [phone]09-10-2025 10:44-0400 Systolic blood tbdhysay326 mm[Hg]Yulisa Batres MD Work Phone: [facility]08-14-2025 08:26-0400 Body heujly777.7 cmElie Brown DPM Work Phone: [facility] HospitalNkewdqpbla01-04-6691 08:26-0400Body mass index (BMI) [Ratio]33.75 kg/o3FnbtveymElie Harper DPM Work Phone: [facility] HospitalTqbkhzacim79-48-4479 08:26-0400Body iskuqe886.7 kgElie Harper DPM Work Phone: [facility] HospitalXfycxhgcag98-34-0056 08:26-0400Respiratory rate16 /minElie Harper DPM Work Phone: [facility] HospitalZxvfjnjqsw13-93-7081 10:01-0400Diastolic blood uktsqgzq58 mm[Hg]Yulisa Batres MD Work Phone: [phone]08-07-2025 10:01-0400 Heart rate72 /Martin Batres MD Work Phone: [phone])591-[address] [place], [place] 8914708-07-2025 10:01-0400 SaO2% (BldA) [Mass fraction]97 %Yulisa Batres MD Work Phone: [phone])[address] [place], [place] 6125108-07-2025 10:01-0400 Systolic blood klydmshz914 mm[Hg]Yulisa Batres MD Work Phone: [phone])[address] [place], [place] 6125106-25-2025 09:43-0400 Body yrckbc496.72 cmYulisa Batres MD Work Phone: [phone] [place], [place] 6125106-25-2025 09:43-0400 Body mass index (BMI) [Ratio]33.7 kg/u5BogpcfwYulisa Batres MD Work Phone: [phone])[address] [place], [place] 6125106-25-2025 09:43-0400 Body yqbhkh413.69 kgYulisa Batres MD Work Phone: [phone] [place], [place] 6125106-25-2025 09:43-0400 Diastolic blood drsykpzz420 mm[Hg]Yulisa Batres MD Work Phone: [phone])[address] [place], [place] 6125106-25-2025 09:43-0400 Heart rate66 /Martin Batres MD Work Phone: [phone])[address] [place], [place] 6125106-25-2025 09:43-0400 Respiratory rate16 /Martin Batres MD Work Phone: [phone])[address] [place], [place] 6125106-25-2025 09:43-0400 SaO2% (BldA) [Mass fraction]97 %Yulisa Batres MD Work Phone: [phone] [place], [place] 6125106-25-2025 09:43-0400 Systolic blood dhgamoqb434 mm[Hg]Yulisa Batres MD Work Phone: [phone])[address] [place], [place] 6125105-29-2025 11:59-0400 Body yopsvd497.7 cmElie KENDALLM Work Phone: [facility] HospitalXxtkbwhflw12-43-2555 11:59-0400Body mass index (BMI) [Ratio]33.75 kg/i3UyoemxpnElie Harper DPM Work Phone: [facility] HospitalAtrgqtepdy61-98-1026 11:59-0400Body qdpgov464.7 kgNicholas Brown DPM Work Phone: [facility] HospitalOvzsddzxsm06-13-5091 11:59-0400Respiratory rate18 /minNicholas Brown DPM Work Phone: [facility] HospitalIrogexxwxx69-31-3400 08:32-0400Body iilzih304.7 cmNicholas Brown DPM Work Phone: [facility] HospitalDfyuymgbyy49-09-1636 08:32-0400Body mass index (BMI) [Ratio]33.75 kg/f1Iyeohuiw Brown DPM Work Phone: [facility] HospitalBuzxdektcu72-34-2054 08:32-0400Body vhtisd635.7 kgNicholas Brown DPM Work Phone: [facility] HospitalIpbmvrrfhw74-95-0420 08:32-0400Respiratory rate16 /minNicholjarret Brown DPM Work Phone: [facility] HospitalEzkvnjgnaz03-18-7823 09:15-0400Diastolic blood mm[Hg]Magalie Mandeep DO Work Phone: [facility] HospitalOjlexddwyl92-57-2016 09:15-0400Heart rate71 /min Magalie Mandeep DO Work Phone: [facility] HospitalXswroilslb90-78-1456 09:15-3970HjU2% (BldA) [Mass fraction]96 %Magalie Mandeep DO Work Phone: [facility] HospitalLljewywyuq07-39-6542 09:15-0400Systolic blood ydsobwyz478 mm[Hg]Magalie Mandeep DO Work Phone: [facility] HospitalMjcodzthre74-87-9682 14:03-0400Body aywpfy115.7 cmNicholjarret Brown DPM Work Phone: [facility] HospitalCnxydpdzrp02-21-9451 14:03-0400Body mass index (BMI) [Ratio]33.75 kg/u8Zfwslkwk Brown DPM Work Phone: [phone] [place], [place] [address]Lzlfwivlsq66-42-8732 14:03-0400Body .7 kgNicholas Brown DPM Work Phone: [phone] [place] [address]-16-2025 14:03-0400Respiratory rate18 /minNicholas Brown DPM Work Phone: 1([phone] [place], [place] [address]Cdltikucyc26-05-8226 15:43-0400Body kltzev414.7 cmNicholas Brown DPM Work Phone: [phone] [place] [address]-09-2025 15:43-0400Body mass index (BMI) [Ratio]33.75 kg/s9Sssiaaaq Brown DPM Work Phone: 1(920)[facility] [place] [address]-09-2025 15:43-0400Body qiogoc670.7 kgNicholas Brown DPM Work Phone: [phone])[facility] [place] [address]-09-2025 15:43-0400Respiratory rate18 /minNicholas Brown DPM Work Phone: 1([phone] [place], [place] [address]Bouirynnmi70-37-9142 14:21-0400Body lhtqli393.7 cmNicholas Brown DPM Work Phone: [phone] [place] [address]-02-2025 14:21-0400Body mass index (BMI) [Ratio]33.75 kg/o8Fzualshz Brown DPM Work Phone: [phone] [place], [place] [address]Deqkkcyxmu11-66-8269 14:21-0400Body kbpiwt118.7 kgNicholas Brown DPM Work Phone: 1(380)[facility] [place] [address]-02-2025 14:21-0400Respiratory rate18 /minNicholas Brown DPM Work Phone: 1(612)[facility] [place] [address]-13-2025 10:12-0400Body .7 cmNicholas Brown DPM Work Phone: [phone] [place] [address]-13-2025 10:12-0400Body mass index (BMI) [Ratio]33.75 kg/g6Psbtscfh Brown DPM Work Phone: [phone])[facility] [place] [address]-13-2025 10:12-0400Body xtiaqp634.7 kgNicholas Brown DPM Work Phone: [facility] HospitalYjgwbgovkw86-48-2181 10:12-0400Respiratory rate18 /minNicholas Brown DPM Work Phone: [facility] HospitalPnyaclpakd45-41-2413 10:22-0500Body mihhxz617.7 cmNicholas Brown DPM Work Phone: [facility] HospitalZylkpcppoe25-47-9999 10:22-0500Body mass index (BMI) [Ratio]33.75 kg/v8Mdzuwvkn Brown DPM Work Phone: [facility] HospitalRaczuqzlsb27-49-1614 10:22-0500Body zmafwq582.7 kgNicholas Brown DPM Work Phone: [facility] HospitalBfqlzybvml32-27-5769 10:22-0500Respiratory rate18 /minNicholas Brown DPM Work Phone: [facility] HospitalMeszvgefhx60-54-9525 15:04-0500Body icbzhq765.7 cmNicholas Brown DPM Work Phone: [facility] HospitalEikwpkeysd84-61-9959 15:04-0500Body mass index (BMI) [Ratio]33.75 kg/b1Nwkycqzj Brown DPM Work Phone: [facility] HospitalEutzenunsn49-73-7735 15:04-0500Body qaubbb757.7 kgNicholas Brown DPM Work Phone: [facility] HospitalDeswvnewuh22-19-2873 15:04-0500Respiratory rate18 /minNicholas Brown DPM Work Phone: [facility] HospitalObkqzwuhsd57-05-3172 11:30-0500Body mass index (BMI) [Ratio]33.75 kg/d5Yohhl Christianson SUPERVISOR OF INSTRUCTION Work Phone: [facility] HospitalRgkfsorxui79-47-2872 11:30-0500Body vmbssy505.7 kgSarah Christianson SUPERVISOR OF INSTRUCTION Work Phone: [facility] HospitalFwaspaguzi11-74-5858 11:30-0500Diastolic blood rcbnudww64 mm[Hg]Gaby Christianson SUPERVISOR OF INSTRUCTION Work Phone: [facility] HospitalZhfwtckauy11-25-3829 11:30-0500Heart rate85 /min Gaby Christianson SUPERVISOR OF INSTRUCTION Work Phone: noShrin[facility] Hospitals for ChildrenPqzrtyydcv12-26-6777 11:30-9811AiG0% (BldA) [Mass fraction]97 %Gaby Christianson SUPERVISOR OF INSTRUCTION Work Phone: [facility] HospitalEfidqkhfaj64-62-5369 11:30-0500Systolic blood krfiqouw349 mm[Hg]Gaby Christianson SUPERVISOR OF INSTRUCTION Work Phone: [facility] HospitalMarpvabuao66-68-7533 11:19-0500Body vpzxuf854.2 Jones Mcclure MD Work Phone: [phone]01-22-2025 11:19-0500Body mass index (BMI) [Ratio]36.96 kg/m5KqddsNew Mcclure MD Work Phone: [phone]01-22-2025 11:19-0500Body weight 107.05 kgNew Mcclure MD Work Phone: [phone]01-09-2025 14:19-0500Body height 172.7 cmElie Harper DPM Work Phone: [facility] HospitalEonesxqstx04-73-6485 14:19-0500Body mass index (BMI) [Ratio]34.67 kg/c4PetbgikoElie Harper DPM Work Phone: [facility] HospitalMyjsrjcowf17-76-1626 14:19-0500Body fvitcn980.42 kgElie Harper DPM Work Phone: [facility] HospitalOjertfriso77-84-3035 14:19-0500Respiratory rate18 /minElei Harper DPM Work Phone: [facility] HospitalRgyfjhmjvf96-05-4278 11:39-0500Diastolic blood rmiwbjof68 mm[Hg]Magalie Mandeep DO Work Phone: [facility] HospitalRrapsewqik21-31-5414 11:39-0500Heart rate76 /min Magalie Mandeep DO Work Phone: noShriners Hospitals for ChildrenYuxrcxxpep34-83-1420 11:39-2345FqA6% (BldA) [Mass fraction]99 %Magaliedanish Kaufman DO Work Phone: [facility] HospitalZsqxpoiqof46-87-2600 11:39-0500Systolic blood nechlksw107 mm[Hg]Magaliedanish Kaufman DO Work Phone: [facility] HospitalCbhtkagznj02-96-2165 14:08-0500Body mass index (BMI) [Ratio]34.67 kg/r9Fxiswqlxanr Moni DO Work Phone: [facility] HospitalEqgmfyvdqu60-39-2638 14:08-0500Body oiqwui269.42 kgChristopher Moni DO Work Phone: [facility] HospitalLzvcvnzwij62-46-9670 14:08-0500Diastolic blood dcdmjwis04 mm[Hg]Christarmand Montenegro DO Work Phone: [facility] HospitalJiurznrqrr98-03-8994 14:08-0500Heart rate76 /min Christcarlyer Moni DO Work Phone: [facility] HospitalUvedmjgdkh09-58-1121 14:08-6113YzG1% (BldA) [Mass fraction]93 %Christarmand Prattett DO Work Phone: noShriners Hospitals for ChildrenBajieohgpm95-95-8846 14:08-0500Systolic blood ajkntlvr621 mm[Hg]Christarmand Prattett DO Work Phone: [facility] HospitalAnzmvvtomu51-91-7886 14:36-0400Body sekkqp689.7 cmElie Meredith DPM Work Phone: [facility] HospitalSsgiuepenj56-23-7807 14:36-0400Body mass index (BMI) [Ratio]34.21 kg/o5VbtzpvwwElie Harper DPM Work Phone: [facility] HospitalKtklhhlraq65-98-3593 14:36-0400Body tsprco182.06 kgElie Harper DPM Work Phone: [facility] HospitalQwgvgsjggf22-63-0070 14:36-0400Diastolic blood yknqttza70 mm[Hg]Elie Meredith DPM Work Phone: 1(065)052-[address] [place], [place] [address]Nqjmsyrzzu58-02-9849 14:36-0400Heart rate82 /min Eliemitzi Harper DPM Work Phone: 1(651)392-[address] [place], [place] [address]Wjcaivprir73-97-1452 14:36-0400Systolic blood jvxbmwee577 mm[Hg]Elie Harper DPM Work Phone: 1(219)[facility] [place], [place] [address]Qgrgxbyvaw60-18-0334 11:30-0400Body .7 cmTabsharona Harper DPM Work Phone: [phone] [place], [place] [address]Arejhllhas39-47-0374 11:30-0400Body mass index (BMI) [Ratio]34.21 kg/u3Agbdewfy Brown DPM Work Phone: 1(560)866-[address] [place], [place] [address]Gpmnfndsta53-33-8039 11:30-0400Body .06 kgLizjarret Harper DPM Work Phone: 1(769)4-[address] [place] [address]-10-2024 11:30-0400Respiratory rate17 /minTabsharona Harper DPM Work Phone: 1(377)790-[address] [place], [place] [address]Pacujqyfnk15-51-4280 10:36-0400Body .7 cmTabsharona Harper DPM Work Phone: 1(034)865-[address] [place], [place] [address]Zavriwijgn47-55-4651 10:36-0400Body mass index (BMI) [Ratio]34.21 kg/f3Amhgpxjc Brown DPM Work Phone: 1(196)2-[address] [place], [place] [address]Vcikyzafmc57-25-0297 10:36-0400Body zoqpjs117.06 kgTabsharona Harper DPM Work Phone: 1([phone] [place] [address]-26-2024 10:36-0400Diastolic blood czhcadxx31 mm[Hg]Elie Meredith DPM Work Phone: 1(199)4-[address] [place] [address]-26-2024 10:36-0400Heart rate74 /min Elie Meredith DPM Work Phone: 1(354)365-[address] [place] [address]-26-2024 10:36-0400Respiratory rate18 /minElie Harper DPM Work Phone: [place] [address]Cgocdkphzu71-34-3504 10:36-0400Systolic blood bbcinace843 mm[Hg]Elie Harper DPM Work Phone: [place] [address]Zvushmjowt21-21-2031 12:37-0400Diastolic blood ymwswaxq63 mm[Hg]Magalie Mandeep DO Work Phone: [place] [address]Iqiykekvof16-98-8950 12:37-0400Heart rate64 /min Magalie Mandeep DO Work Phone: [place] [address]Khbxkpydgz61-85-6933 12:37-4386QsU4% (BldA) [Mass fraction]94 %Magalie Mandeep DO Work Phone: [place] [address]Zygahfxgve58-54-7283 12:37-0400Systolic blood kfzcoeuu963 mm[Hg]Magalie Mandeep DO Work Phone: [place] [address]Qetlywezxj47-90-7462 15:22-0400Body gmsybr329.7 cmElie Meredith DPM Work Phone: [place] [address]Fovfszctex94-79-6487 15:22-0400Body mass index (BMI) [Ratio]34.21 kg/r8QvhzzoimElie Harper DPM Work Phone: [place] [address]Bbdvjkzhim84-17-9138 15:22-0400Body xheoku233.06 kgElie Harper DPM Work Phone: [place] [address]Eghewlzgnq21-38-3570 15:22-0400Diastolic blood rkxofsfe00 mm[Hg]Elie Harper DPM Work Phone: [place] [address]Brvvjlfsho71-55-4931 15:22-0400Heart rate75 /min Elie Harper DPM Work Phone: [place] [address]Genwqzjeex53-24-4743 15:22-0400Respiratory rate18 /minElie Harper DPM Work Phone: [place] [address]Nvwvnifzus20-03-9252 15:22-0400Systolic blood mhmtydnc426 mm[Hg]Elie Harper DPM Work Phone: [facility] ChildrenQvfxodnrpj25-03-0825 13:00-0400Body .7 Adonay Christianson SUPERVISOR OF INSTRUCTION Work Phone: [facility]OS[facility] ChildrenHpjhwjvdtn27-41-6642 13:00-0400Body mass index (BMI) [Ratio]34.21 kg/a6GeqojGaby Christianson SUPERVISOR OF INSTRUCTION Work Phone: [facility]OS[facility] for ChildrenOxwbnzymvv10-69-9180 13:00-0400Body uurtmj308.06 kgGaby Christianson SUPERVISOR OF INSTRUCTION Work Phone: [facility] [phone] 13:00-0400Diastolic blood tzdeqhcw31 mm[Hg]Gaby Christianson SUPERVISOR OF INSTRUCTION Work Phone: [facility] [phone] 13:00-0400Systolic blood lyudiwkx208 mm[Hg]Gaby Christianson SUPERVISOR OF INSTRUCTION Work Phone: [facility] [phone] 14:04-0400Body adocrm380.7 cmElie Harper DPM Work Phone: [facility]Yyfbjgovqb22-04-3707 14:04-0400Body mass index (BMI) [Ratio]33.6 kg/a5XhfmfbrcElie Harper DPM Work Phone: [facility] [phone] 14:04-0400Body ovqvxg143.25 kgElie Harper DPM Work Phone: [facility] [phone] 14:04-0400Diastolic blood txmfsjzy80 mm[Hg]Elie Harper DPM Work Phone: [facility] [phone] 14:04-0400Heart rate80 /min Elie Harper DPM Work Phone: [facility] [phone] 14:04-0400Systolic blood pvsucqef198 mm[Hg]Elie Harper DPM Work Phone: [facility] H[phone] 09:44-0400Body sjowms170.2 Jones Mcclure MD Work Phone: [phone] [place], [place] [id number] 09:44-0400Body mass index (BMI) [Ratio]37.09 kg/n3GgeyaNew Mcclure MD Work Phone: [phone] [place], [place] [id number] 09:44-0400Body nqbzdwgfimz23.5 [degF]New Mcclure MD Work Phone: 1(528)257-[address] [place], [place] 4655207-25-2024 09:44-0400Body weight 107.41 kgNew Mcclure MD Work Phone: 1(345)7[address]05-16-2024 15:49-0400Body height 170.2 cmSebenezer Mcclure MD Work Phone: 1(386)655-[address] [place], [place] 4655205-16-2024 15:49-0400Body mass index (BMI) [Ratio]35.4 kg/d2TqpmxNew Mcclure MD Work Phone: 1(021)[address]05-16-2024 15:49-0400Body weight 102.51 kgNew Mcclure MD Work Phone: 1(239)9[address]04-18-2024 11:02-0400Body height 170.2 cmCshanice Green LAND APPRAISER-SET UP MECHANIC Work Phone: 7(408)133-[address] [place], [place] 4655204-18-2024 11:02-0400Body mass index (BMI) [Ratio]35.4 kg/m2Rajinder Green LAND APPRAISER-SET UP MECHANIC Work Phone: 3(529)676-[address] [place], [place] 4655204-18-2024 11:02-0400Body weight 102.51 kgRajinder Green LAND APPRAISER-SET UP MECHANIC Work Phone: 1(905)722-[address] [place], [place] 4655212-28-2023 10:09-0500Diastolic blood xarbozyc88 mm[Hg]Pepe Chaka Ont [facility]12-28-2023 10:09-0500Systolic blood zohdeplz718 mm[Hg]Pepe Chaka Ont [facility]12-28-2023 09:53-0500Body zjuago866.2 cmAvo Chaka Ont [facility]12-28-2023 09:53-0500Body mass index (BMI) [Ratio]34.46 kg/m2Avo Chaka Ont [facility]12-28-2023 09:53-0500Body chzjon08.79 kg Pepe Chaka Ont [facility]12-28-2023 09:53-0500Heart rate67 /min [facility] HospitalComment on above:mbdnipb51-41-6769 09:53-0500Respiratory rate20 /minAvo Chaka Ont [facility] Comment on above:lungs nzl35-70-0471 09:53-6440KrA8% (BldA) [Mass fraction]96 % Pepe Chaka Ont [facility]10-26-2023 12:59-0400Body fqapai591.2 Jones Mcclure MD Work Phone: 1(472)[address]10-26-2023 12:59-0400Body mass index (BMI) [Ratio]35.4 kg/h7AlldiNew Mcclure MD Work Phone: 1(333)[address]10-26-2023 12:59-0400Body abzppimsueh93.2 [degF]New Mcclure MD Work Phone: 1([phone])[address]10-26-2023 12:59-0400Body weight 102.51 kgNew Mcclure MD Work Phone: [phone])[address]07-13-2023 14:41-0400Body height 172.7 Lewis Green LAND APPR[employer]ER-SET UP MECHANIC Work Phone: 6([phone])324-[address] [place], [place] 4655207-13-2023 14:41-0400Body mass index (BMI) [Ratio]34.36 kg/m2Rajinder Green APRN-SET UP MECHANIC Work Phone: [phone])[address]11 [address]07-13-2023 14:41-0400Body replcwqpjzw32.59 [degF]Rajinder Green APRN-SET UP MECHANIC Work Phone: 2(978)281-[address] [place], [place] 4655207-13-2023 14:41-0400Body weight 102.51 kgRajinder Green APRN-SET UP MECHANIC Work Phone: [phone])[address]10-25-2021 15:30-0400Body height 173.99 cmStephen Alicea Other [employer] Other 10-25-2021 15:30-0400Body mass index (BMI) [Ratio] 30.26 kg/a2LiztqwStephen Alicea Other [employer] Other 10-25-2021 15:30-0400Body umgqka31.63 kgDajose Alicea Other [employer] Other 10-25-2021 15:30-0400Diastolic blood krgkicax69 mm[Hg] Stephen Alicea Other [employer] Other 10-25-2021 15:30-0400Systolic blood csjxsaab663 mm[Hg] Stephen Alicea Other [employer] Other 05-05-2021 13:50-0400Body traabh320.7 Jones Mcclure MD Work Phone: 1(478)251-[address] [place], [place] [address]05-05-2021 13:50-0400Body mass index (BMI) [Ratio]33.45 kg/f0SxjfxNew Mcclure MD Work Phone: 1(692)417-[address] [place], [place] [address]05-05-2021 13:50-0400Body pldwnmrgnxa92 [degF]New Mcclure MD Work Phone: 1(010)641-[address] [place], [place] [address]05-05-2021 13:50-0400Body weight 99.79 kgNew Mcclure MD Work Phone: 1(110)629-[address] [place], [place] [address]01-13-2021 14:21-0500BMI (Body Mass Index)34.1 kg/k3AckznVanderbilt Transplant CenterPressi Mazqek37-96-1199 14:21-0500Body Yfdtuhbbprn05.11 [degF][facility] Tbbfni18-87-7221 14:21-0500Body .25 [facility]01-13-2021 14:216102Frhilt014.5 [facility]01-15-2020 13:29-0500BMI (Body Mass Index)33.42 kg/f4[facility]nbhE[facility]01-15-2020 13:29-0500Body Juxwuvqqgsl28 [degF] [facility]01-15-2020 13:29-0500Body .7 [facility]01-15-2020 13:29-9509Dplzkl287.7 [facility]06-12-2019 16:28-0400BMI (Body Mass Index)31.02 kg/n1WfmblE[facility]06-12-2019 16:28-0400Body Ukzyhpzeylv33.59 [degF][facility]06-12-2019 16:28-4340Fcjbqv317.7 [facility]06-12-2019 16:28-1963Cnqful21.53 kgE[facility]04-25-2019 14:14-0400BMI (Body Mass Index)31.63 kg/m2 [facility]04-25-2019 14:14-0400Body Azlelrptafm77.39 [degF][facility]04-25-2019 14:14-9769Cwglhb149.7 [facility] 03-01-2019 14:14-6738Hqfkgm92.35 [facility]02-27-2019 15:24-0500 BMI (Body Mass Index)31.63 kg/l6XszxxE[facility]02-27-2019 15:24-0500 Body Zhcsozbjogg70.3 [degF][facility]02-27-2019 15:24-0500Body .35 [facility]02-27-2019 15:24-8466Gkimdl630.7 [facility]02-07-2019 14:44-0500BMI (Body Mass Index)30.87 kg/m2Critical access hospitals [facility] Work Phone: 1(466) 564-586302-07-2019 14:44-0500Body Ldguitqnnxe36.9 [degF]Rajinder [facility] Work Phone: 1(128) 370-830302-07-2019 14:44-2354Xoxqkq294.7 [facility] Work Phone: 1(847) 797-813402-07-2019 14:44-0993Ytzlaj72.08 [facility] Work Phone: 1(557) 976-459201-18-2019 16:57-0500Body Mlnwtvhodcm92 [degF][facility] Work Phone: 1(608) 777-529401-18-2019 16:57-0500BP Jyrnihmeg68 mm[Hg][facility] Work Phone: 1(871) 539-418501-18-2019 16:57-0500BP Ejmmmjoa840 mm[Hg][facility] Work Phone: 1(100) 994-659101-18-2019 16:57-0500Pulse (Heart Rate)79 /[facility] Work Phone: 1(355) 149-114901-18-2019 16:57-0500Pulse Phfjlhua65 %[facility] Work Phone: 1(859) 891-236901-18-2019 16:57-0500Respiratory Rate18 /[facility] Work Phone: 1(503) 538-935001-15-2019 09:00-0500BMI (Body Mass Index)32.19 kg/m2 [facility] Work Phone: 1(861) 159-790401-15-2019 09:00-4080Ygjgqp033.7 [facility] Work Phone: 1(196) 603-680901-15-2019 09:00-9920Qeokcc61.03 [facility] Work Phone: 1(200) 953-912812-17-2018 08:49-0500BP Pccpvknqt42 mm[Hg]Pepe Chaka Ont [facility] Work Phone: 1(501)279-739-692259-04931015-77-2807 08:49-0500BP Zngtgfss477 mm[Hg]Pepe Chaka Ont [facility] Work Phone: 1(751)182-070-568331-47177263-00-0568 08:49-0500Pulse (Heart Rate)100 /minAvo Chaka Ont [facility] Work Phone: 1(239)744-905-683619-65838567-02-4178 09:01-0500BMI (Body Mass Index)31.93 kg/m2 Pepe Chaka Ont [facility] Work Phone: 1(880)886-962-269151-28238005-98-4127 09:01-0500Body Qvqhftnqulo01.81 [degF]Pepe Chaka Ont [facility] Work Phone: 1(696)011-361-884861-93164010-51-9745 09:01-4625Psptqs806.7 cmAvo Chaka Ont [facility] Work Phone: 1(313)[phone] 09:01-0500Pulse Pglwluwu25 %Pepe Chaka Ont [facility] Work Phone: 1(142)[phone] 09:01-0500Respiratory Rate16 /minAvo Chaka Ont [facility] Work Phone: 1(762)095-962-721411-52603523-18-6548 09:01-9923Fqejme18.25 kgAvo Chaka Ont [facility] Work Phone: Encounters Encounter DateEncounter TypeCare ProviderFacilityStart: 07-23-2025 End: 56-41-3606wnikbavwlxDpvnfoi M Hoy MD Work Phone: [facility] Work Phone: Start: 07-23-2025 End: 91-88-4510Afvwyjm encounter procedureChanali Saavedra DO-[facility] Work Phone: Start: 07-17-2025 End: 54-07-2652fawkqamojbBdbnlph M Hoy MD Work Phone: [facility] Work Phone: Start: 07-17-2025 End: 21-98-3690Okxxshg encounter procedureChanali Saavedra DO-[facility] Work Phone: Start: 06-26-2025 End: 38-66-5737irneapughqYkgmbam M Hoy MD Work Phone: [facility] Work Phone: Start: 06-26-2025 End: 78-63-4319Wjxnwhf encounter procedureChanali Saavedra DO-[facility] Work Phone: Start: 06-20-2025 End: 21-03-2597Cgywzi Burt Harper DPM Work Phone: [facility] PODIATRYStart: 06-20-2025 End: 56-63-3263Izccqu Burt Harper DPM Work Phone: [facility] PODIATRYStart: 06-20-2025 End: 23-30-0731Jsgtnpu encounter procedureElie Harper DPM Work Phone: [facility] CI PODIATRYComment on above:Pain due to onychomycosis of toenails of both feet (Primary Dx)Start: 06-20-2025 End: 99-04-3190vgbrdpxmcvQIHGZKJI A BROWNNot AvailableStart: 06-13-2025 End: 86-73-6047ujhexhehiaZlaepdf M Hoy MD Work Phone: [facility] Work Phone: Start: 06-13-2025 End: 52-74-1608Phhsinb encounter procedureMagalie Kaufman DO-[facility] Work Phone: Start: 05-15-2025 End: 06-54-4978Dsexod flowsheetJonathan D Zapiloer DO Work Phone: [facility] [place] OPHTStart: 05-15-2025 End: 33-54-9029Jwyvhc flowsheetJonathan D Zahler DO Work Phone: [facility] OPHTStart: 05-15-2025 End: 46-43-6783kntgjowxhfRJGTPPQD D MARY LOUNot AvailableStart: 05-01-2025 End: 63-18-9343rbwuagsrbmAyquwxv M Hoy MD Work Phone: [facility] Work Phone: Start: 05-01-2025 End: 85-54-5265Xhssbdm encounter Tammy Christianson APRN-FNP-C-[facility] Work Phone: Start: 04-04-2025 End: 51-85-8385Qaxjff flowsheroNicsharona Harper DPM Work Phone: [facility] PODIATRYStart: 04-04-2025 End: 85-11-1919Zhjalb flowsheroNicholjarret A Brown DPM Work Phone: [facility] PODIATRYStart: 04-04-2025 End: 02-82-9409Mvfgopn encounter procedureNicsharona A Brown DPM Work Phone: [facility] CI PODIATRYComment on above:Pain due to onychomycosis of toenails of both feet (Primary Dx)Start: 04-04-2025 End: 33-59-1688dseoahmpueLRDMROIM A BROWNNot AvailableStart: 03-20-2025 End: 52-16-3489Xhqysylhx encounterDevon Irina TURNEREVUEComment on above: Med RefillStart: 03-07-2025 End: 35-30-3089Ylvlai flowsMarbin Harper DPM Work Phone: [facility] PODIATRYStart: 03-07-2025 End: 07-98-6328Bofxzd flowsheetNicholas A Brown DPM Work Phone: [facility] PODIATRYStart: 03-07-2025 End: 38-06-0103Ewrbxh follow up visit related to original pxNicholas Rashmi Brown DPM Work Phone: [facility] CI PODIATRYComment on above:Acquired deformity of left toe (Primary Dx); Other polyneuropathyStart: 03-07-2025 End: 81-92-8008pqljzmrihqSGLVMUVD A MEREDITHNot AvailableStart: 02-28-2025 End: 74-26-7394Richuh flowsheetNicole Mandeep DO Work Phone: [facility] BELLEVUEStart: 02-28-2025 End: 84-27-2333Ppmtvy flowsheetNicole Mandeep DO Work Phone: [facility] BELLEVUEStart: 02-28-2025 End: 02-09-6941Mhfkngc encounter procedureNicole Mandeep DO Work Phone: A[facility] BELLEVUEComment on above:Blepharospasm (Primary Dx); 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Start: 02-28-2025 End: 34-61-0186yjxrtserxmNHHPPK DANNERNot AvailableStart: 02-20-2025 End: 96-38-5589Yygrfe flowsheetNicholas A Brown DPM Work Phone: [facility] [place] PODStart: 02-20-2025 End: 11-72-5391Ngboxn flowsheetNicholas A Brown DPM Work Phone: [facility] [place] PODStart: 02-20-2025 End: 53-25-5028Kseauk follow up visit related to original pxNicholas Rashmi Brown DPM Work Phone: [facility] [place] PODComment on above:Acquired deformity of left toe (Primary Dx); Other polyneuropathyStart: 02-20-2025 End: 27-17-1698xzsoqciptxMKXXJQOA A BROWNNot AvailableStart: 02-19-2025 End: 29-40-8276TniwmwDeofahyd Sean GUZMAN AUDREYUEComment on above:Paresthesias; Spinal stenosis of lumbar region, unspecified whether neurogenic claudication presentStart: 02-13-2025 End: 67-86-7349Ojpdad follow up visit related to original pxNicholas A Brown DPM Work Phone: [facility] PODComment on above:Acquired deformity of left toe (Primary Dx); Other polyneuropathyStart: 02-13-2025 End: 95-88-3949gwmmlpixwjTUOMVUXD A BROWNNot AvailableStart: 02-13-2025 End: 79-45-8284Ztdjex flowsheetNicholas A Brown DPM Work Phone: [facility] PODStart: 02-13-2025 End: 71-28-7033Yfsqmq flowsheetNicholas A Brown DPM Work Phone: [facility] PODStart: 02-06-2025 End: 10-66-8810hbxmxrqnpaUKKJDNDW A BROWNNot AvailableStart: 02-06-2025 End: 63-12-6117Juqfok flowsheetNicholas A Brown DPM Work Phone: [facility] PODStart: 02-06-2025 End: 32-33-7490Miofbz flowsheetNicholas A Brown DPM Work Phone: [facility] PODStart: 02-06-2025 End: 94-26-6171Hlsgpc follow up visit related to original pxNicholas A Brown DPM Work Phone: [facility] CT PODComment on above:Acquired deformity of left toe (Primary Dx); Other polyneuropathyStart: 01-24-2025 End: 23-78-2361giwdsjgwipWFJLVIBO A BROWNNot AvailableStart: 01-17-2025 End: 72-11-2383Wfmixd outpatient visit 25 minutesNicholas A Brown DPM Work Phone: [facility] PODIATRYComment on above:Cellulitis of left foot (Primary Dx); Acquired deformity of left toe; Foot ulcer, left, with fat layer exposed (CMS/HCC); Other polyneuropathyStart: 01-17-2025 End: 85-70-3507YmphasEtfcyess Sean GUZMAN [facility] CLINTONComment on above: Paresthesias; Spinal stenosis of lumbar region, unspecified whether neurogenic claudication presentStart: 01-10-2025 End: 38-43-1055Ewliwd flowsheetNicholas A Brown DPM Work Phone: no[facility] CI PODIATRYStart: 01-10-2025 End: 11-24-3241Luranc flowsheetNicholas A Brown DPM Work Phone: [facility] CI PODIATRYStart: 01-10-2025 End: 25-17-3576Ndpjub outpatient visit 15 minutesNicholas A Brown DPM Work Phone: noms PODIATRYComment on above:Cellulitis of left foot (Primary Dx); Acquired deformity of left toe; Foot ulcer, left, with fat layer exposed (CMS/HCC); Other polyneuropathyStart: 01-10-2025 End: 70-83-8245nlcdchxgyuYCMVHZOT A BROWNNot AvailableStart: 01-02-2025 End: 05-19-7386Ageuju outpatient visit 15 minutesNicholas A Brown DPM Work Phone: [facility] CT PODComment on above:Cellulitis of left foot (Primary Dx); Acquired deformity of left toeStart: 01-02-2025 End: 38-72-6731omavfvpcosRIAQNBYG A BROWNNot AvailableStart: 01-02-2025 End: 55-84-9241Herwhz flowsheetNicholas A Brown DPM Work Phone: [facility]oms CT PODStart: 01-02-2025 End: 66-11-2702Sxblrl flowsheetNicholas A Brown DPM Work Phone: [facility]oms CT PODStart: 12-12-2024 End: 67-74-1665Nqdket Ministerio Christianson SUPERVISOR OF INSTRUCTION Work Phone: ana AUDREYUEStart: 12-12-2024 End: 30-74-4767Xwwxai Ministerio Christianson SUPERVISOR OF INSTRUCTION Work Phone: ana [facility]ONUEStart: 12-12-2024 End: 96-19-1088Gqibgg outpatient visit 15 minutesGaby Christianson SUPERVISOR OF INSTRUCTION Work Phone: ana AUDREYUEComment on above:Spinal stenosis of lumbar region, unspecified whether neurogenic claudication present (Primary Dx); Degeneration of intervertebral disc of lumbar region with discogenic back pain; Facet arthritis of lumbar region; Blepharospasm; Polyneuropathy; Carpal tunnel syndrome on both sidesStart: 12-12-2024 End: 29-72-4561kfqcdyuwvgIWGVM CARROLLNot AvailableStart: 11-28-2024 End: 17-27-3972Bolwnm outpatient visit 15 Alice Mcclure MD Work Phone: [facility] OrthopedicsComment on above:Hx of total knee arthroplasty, left (Primary Dx); Hx of total knee arthroplasty, rightStart: 11-28-2024 End: 21-34-9230Kpwhfdzikz hospital visit by Kaykay Mcclure MD Work Phone: [facility] RadiologyStart: 28-86-6135olfhyupmarYXTHM FOSTERAvita Ontario HospitalStart: 11-15-2024 End: 23-35-0759Zerzij outpatient visit 15 minutesElie KENDALLM Work Phone: [facility] CI PODIATRYComment on above:Acquired deformity of left toe (Primary Dx); Pain due to onychomycosis of toenails of both feetStart: 11-15-2024 End: 86-62-8720iagugzakvpNDQFXWCD A BROWNNot AvailableStart: 11-15-2024 End: 03-42-3228Faazsn franciscaheetNicsharona Harper DPM Work Phone: [facility] PODIATRYStart: 11-15-2024 End: 49-62-2380Zbuuyd franciscaheetNicsharona Harper DPM Work Phone: [facility] PODIATRYStart: 10-25-2024 End: 78-33-5695Acdoqs flowsheetNicole Mandeep DO Work Phone: [facility] [place] [facility] R[facility]TEStart: 10-25-2024 End: 95-29-4634Irrufo flowsheetNicole Mandeep DO Work Phone: [facility] [facility]TEStart: 10-25-2024 End: 52-58-7063Fnadhpk encounter procedureNicole Mandeep DO Work Phone: [facility] [place] [facility] ROUTEComment on above: Blepharospasm (Primary Dx); 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Start: 10-25-2024 End: 41-11-3033wrzxcnwpidCCRRFJ DANNERNot AvailableStart: 10-24-2024 End: 21-56-2422ZteckzRbylnbg Hauler ULISES [facility] STATE ROUTEComment on above: Spinal stenosis of lumbar region, unspecified whether neurogenic claudication present (Primary Dx); ParesthesiasStart: 10-23-2024 End: 99-72-6458Ztqufs flowsheetChristopher Moni DO Work Phone: [facility] NE NEUROStart: 10-23-2024 End: 90-58-7836Qhunhj flowsheetChristopher Moni DO Work Phone: [facility] NE NEUROStart: 10-23-2024 End: 16-33-0256Enirsgo encounter procedureChristopher Moni DO Work Phone: [facility] NE NEUROComment on above:Carpal tunnel syndrome on both sides (Primary Dx); ParesthesiasStart: 10-23-2024 End: 98-29-6957pvsacfgrmdQXYMHBHODYL HASSETTNot AvailableStart: 10-22-2024 End: 03-39-9181Dedlyn OnlyChristopher Moni DO Work Phone: [facility] [facility] R[facility]TEComment on above: Paresthesias; Spinal stenosis of lumbar region, unspecified whether neurogenic claudication presentStart: 10-15-2024 End: 23-78-2576Ktfudm flowsheetChristopher Moni DO Work Phone: [facility] ROUTEStart: 10-15-2024 End: 06-49-7304Ozskrb flowsheetChristopher Moni DO Work Phone: [facility] ROUTEStart: 10-15-2024 End: 24-50-3358Fsbdnb outpatient visit 25 minutesChristopher Moni DO Work Phone: [facility] ROUTEComment on above:Paresthesias (Primary Dx); Blepharospasm; Spinal stenosis of lumbar region, unspecified whether neurogenic claudication presentStart: 10-15-2024 End: 12-13-0395axukcpvzfdMYVISIVJWLK HASSETTNot AvailableStart: 09-06-2024 End: 06-40-4553Bmoxgyj encounter procedureNicholas A Brown DPM Work Phone: [facility] CI PODIATRYComment on above:Pain due to onychomycosis of toenails of both feet (Primary Dx); Acquired deformity of left toeStart: 09-06-2024 End: 12-55-6086nxbnrzxvizFIXSPNII A BROWNNot AvailableStart: 09-06-2024 End: 70-10-6399Jrehfc flowsheetNicholas A Brown DPM Work Phone: no[facility] CI PODIATRYStart: 09-06-2024 End: 21-36-3477Swkxpz flowsheetNicholas A Brown DPM Work Phone: no[facility] CI PODIATRYStart: 08-16-2024 End: 01-40-5021Elaytm flowsheetNicholas A Brown DPM Work Phone: no[facility] CI PODIATRYStart: 08-16-2024 End: 50-79-8702Xxlzoi flowsheetNicholas A Brown DPM Work Phone: [facility] CI PODIATRYStart: 08-16-2024 End: 59-64-5245Zvloiz outpatient visit 15 minutesNicholas A Brown DPM Work Phone: [facility] CI PODIATRYComment on above:Abscess of toe, right (Primary Dx); Acquired deformity of left toeStart: 08-16-2024 End: 92-88-6482yexjthvhrrLGLJJBVE A BROWNNot AvailableStart: 08-02-2024 End: 34-96-4440Wjkfxs flowsMarbin Harper DPM Work Phone: [facility] CI PODIATRYStart: 08-02-2024 End: 55-05-3627Hxbeyw flowsMarbin Harper DPM Work Phone: N[facility] CI PODIATRYStart: 08-02-2024 End: 92-94-6839Jgzkiz outpatient visit 15 minutesElie Harper DPM Work Phone: [facility] CI PODIATRYComment on above:Onychocryptosis (Primary Dx); Toe pain, right; Abscess of toe, right; Acquired deformity of left toeStart: 08-02-2024 End: 80-35-3870lwlzfbdecrWCZVJAGD A BROWNNot AvailableStart: 07-31-2024 End: 29-53-6777olkzprwuerNZLISOFA D ZAHLERNot AvailableStart: 07-30-2024 End: 88-33-1294Lnkuozwsw encounterElie Harper DPM Work Phone: [facility] CI PODIATRYComment on above:RxStart: 07-26-2024 End: 44-68-4174Vutmpw flowsheetNicole Mandeep DO Work Phone: [facility] [facility]TEStart: 07-26-2024 End: 41-51-3404Bdaclj flowsheetNicole Mandeep DO Work Phone: [facility] [facility] R[facility]TEStart: 07-26-2024 End: 69-61-7889Bivebec encounter procedureNicole Mandeep DO Work Phone: [facility] [facility] ROUTEComment on above: Blepharospasm (Primary Dx); 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Start: 07-26-2024 End: 23-99-6582xysgpykglxEJLGII DANNERNot AvailableStart: 2024 End: 06-61-7979UfzwgiZrtpeyba Riedy MANOMS NEUROLOGYComment on above: Polyneuropathy (Primary Dx); Spinal stenosis of lumbar region, unspecified whether neurogenic claudication present; Degenerative disc disease, lumbarStart: 07-18-2024 End: 59-07-4094Ceoybj outpatient visit 15 minutesElie Harper DPM Work Phone: [facility] CT PODComment on above:Onychocryptosis (Primary Dx); Toe pain, right; Abscess of toe, rightStart: 07-18-2024 End: 46-76-9510gpwnwtginqLKTDNJQM A BROWNNot AvailableStart: 07-16-2024 End: 98-56-5780Hqbywf Ministerio Christianson SUPERVISOR OF INSTRUCTION Work Phone: [facility] ROUTEStart: 07-16-2024 End: 82-19-8229Gsdoxj Ministerio Christianson SUPERVISOR OF INSTRUCTION Work Phone: [facility] ROUTEStart: 07-16-2024 End: 46-40-8209Rhwodv outpatient visit 15 minutesGaby Christianson SUPERVISOR OF INSTRUCTION Work Phone: [facility]oms [facility] ROUTEComment on above:Spinal stenosis of lumbar region, unspecified whether neurogenic claudication present (Primary Dx); Degenerative disc disease, lumbar; Facet arthritis of lumbar region; Blepharospasm; Polyneuropathy; ParesthesiasStart: 07-16-2024 End: 92-30-7732ibzziblfkyGWIHF CARROLLNot AvailableStart: 06-28-2024 End: 98-96-4047Jpmczx flowsMarbin Harper DPM Work Phone: [facility] CI PODIATRYStart: 06-28-2024 End: 19-54-5924Wqitdq Burt Harper DPM Work Phone: [facility] CI PODIATRYStart: 06-28-2024 End: 04-25-4837Odjrjw outpatient visit 10 minutesElie Harper DPM Work Phone: [facility] CI PODIATRYComment on above:Acquired deformity of left toe (Primary Dx); Onychomycosis; Toe pain, bilateralStart: 06-28-2024 End: 73-45-4756zrhvztszvnCOFCVCQC A BROWNNot AvailableStart: 05-31-2024 End: 12-72-5605Uhflzr outpatient visit 15 Alice Mcclure MD Work Phone: [facility] OrthopedicsComment on above:Pain in both knees, unspecified chronicity (Primary Dx)Start: 05-31-2024 End: 67-35-7220Ihpkmmamgd hospital visit by Kaykay Mcclure MD Work Phone: [facility] RadiologyStart: 03-18-0167fthqyaugedXPPWPThe Hospitals of [facility] HospitalStart: 04-19-2024 End: 15-30-1199Isbjwv outpatient visit 25 Alice Mcclure MD Work Phone: [facility] OrthopedicsComment on above:Pain in both knees, unspecified chronicity (Primary Dx)Start: 04-19-2024 End: 60-35-4650Ysrvejxcnz hospital visit by Kaykay Mcclure MD Work Phone: [facility] RadiologyStart: 82-01-6202nbbvylcgoxKGPMAThe [facility] of [facility] HospitalStart: 03-22-2024 End: 37-52-6088Hiryzu outpatient visit 15 Alice Mcclure MD Work Phone: [facility] OrthopedicsComment on above:Pain in both knees, unspecified chronicity (Primary Dx)Start: 03-22-2024 End: 14-00-2766Fplrwpyvre hospital visit by Kaykay Mcclure MD Work Phone: [facility] RadiologyStart: 21-07-7636vgubcsxbcbZRMBAThe Hospitals of [facility] HospitalStart: 02-23-2024 End: 43-33-0448Plwvtn follow up visit related to original Delaney Green APRN-SET UP MECHANIC Work Phone: [facility] OrthopedicsComment on above:Hx of total knee arthroplasty, left (Primary Dx)Start: 02-23-2024 End: 94-24-9326Tacghefntj hospital visit by Marisol Green APRN-SET UP MECHANIC Work Phone: [facility] RadiologyStart: 18-87-9872vpibwxnqke YULISA [facility] HospitalStart: 01-12-2024 End: 91-82-5326Esavfd outpatient visit 25 minutesNew Mcclure MD Work Phone: [facility] OrthopedicsComment on above:Right knee pain, unspecified chronicity (Primary Dx)Start: 01-12-2024 End: 27-74-0669Uzsbbhdsbq hospital visit by Kaykay Mcclure MD Work Phone: [facility] CenterStart: 95-91-9727gqhglecldjLCMJX F[facility]ERAv[facility] HospitalStart: 12-22-2023 End: 08-74-3419Hvikynevgp hospital visit by Marisol Green LAND APPRAISER-SET UP MECHANIC Work Phone: [facility] CenterStart: 51-44-4119ypodamdraz YULISA [facility] HospitalStart: 11-03-2023 End: 17-61-1267Zkoukujmh to Emma Mcclure MD Work Phone: [facility] Pre AdmissionComment on above:Preop testing (Primary Dx); Abnormal finding of blood chemistry, unspecified; Abnormal coagulation profileStart: 11-03-2023 End: 08-08-2019Amiexcu encounter statusNew Mcclure MD Work Phone: [facility]Start: 09-01[facility]2023 End: 93-14-2640Lufzzh outpatient visit 40 minutesNew Mcclure MD Work Phone: [facility] OrthopedicsComment on above:Hx of total knee arthroplasty, right (Primary Dx); Hx of total knee arthroplasty, leftStart: 09-01-2023 End: 15-18-7586Dmwrqwgaam hospital visit by Kaykay Mcclure MD Work Phone: [facility] RadiologyStart: 05-19-2023 End: 22-63-8373Jmxwed follow up visit related to original Delaney SCHWARTZ Work Phone: [facility] OrthopedicsComment on above:Hx of total knee arthroplasty, right (Primary Dx)Start: 05-19-2023 End: 62-42-4237Ylefvinjey hospital visit by Marisol SCHWARTZ Work Phone: [facility]iologyStart: 03-18-2023 End: 47-49-9835Fkfjboeotg hospital visit by Kaykay Mcclure MD Work Phone: [facility] RadiologyStart: 02-08-2023 End: 55-41-1965wnbjkzariqPG YULISA HOWill .Facility:U8Zifsx: 11-03-2022 End: 39-37-0951qdslwhkzbsYY DARREN MONACOFacility:M3Fmpzk: 10-18-2022 End: 68-59-4884ydjvbcplarUA YULISA HOY .Facility:D0Xuxik: 08-31-2022 End: 78-53-1401dbncmzqszoML JACK AKHIL .Facility:A9Xybtq: 08-27-2022 End: 48-83-9860hagqclxeuuSO YULISA BATRES .Facility:G2Inwgx: 07-30-2022 End: 57-24-0238txskjhfvsrYY DARREN MONACOFacility:W8Lrsmf: 04-20-2022 End: 80-75-7888ngraatxfmwIQ DARREN MONACOFacility:B1Gfgze: 04-20-2022 End: 66-42-6198dhxwunfvusHM YULISA HOY .Facility:K2Uyeju: 08-31-2021 End: 22-23-8378irscxdczbpWrzviy Elskens Other [employer] Other start: 90-53-8162Sajwux outpatient new 30 minutes Stephen [facility]Cam[facility] NeurosurgeryStart: 05-07-2021 End: 05-71-1968rmowpiquqjBin ReeseFacility:[facility] Start: 03-11-2021 End: 45-72-1826Yveidf outpatient visit 15 minutesNew Mcclure MD Work Phone: [facility] [place] OrthopedicsComment on above:Left knee pain, unspecified chronicity (Primary Dx); Right knee pain, unspecified chronicityStart: 11-19-2020 End: 52-59-6588Evlvqe outpatient visit 15 minutesNew Mcclure [employer] Phone: [facility] [place] OrthopedicsComment on above:Hx of total knee arthroplasty, left (Primary Dx); Pain in prosthetic joint, initial encounterStart: 11-19-2020 End: 49-00-3888Dvjzvgiyab hospital visit by Kaykay Mcclure Work Phone: [facility] RadiologyStart: 11-21-2019 End: 90-04-8091Cktglw outpatient visit 15 Alice Mcclure Work Phone: [facility] Healthfiorella [place] OrthopedicsComment on above:History of total knee arthroplasty, left (Primary Dx); Arthritis of right kneeStart: 11-21-2019 End: 78-14-6953Rrumffisyq hospital visit by Kaykay Mcclure Work Phone: [facility] RadiologyStart: 04-18-2019 End: 20-50-3031Sltakb outpatient visit 15 ricaNew Mcclure Work Phone: [facility]fiore[facility] [place] OrthopedicsComment on above:Right hip pain (Primary Dx); Left knee pain, unspecified chronicity; Right knee pain, unspecified chronicityStart: 04-18-2019 End: 79-52-5812Tyqfujg encounter You Mcclure Work Phone: [facility] RadiologyStart: 03-01-2019 End: 95-20-0241Mvpaihatze hospital visit by Kaykay Mcclure [employer] Phone: Xiotechfiorella [facility] RadiologyStart: 03-01-2019 End: 74-63-9698Pddzfy encounterProvider OsumychartNorwalk Memorial Hospitaltart: 03-01-2019 End: 28-89-3399Fkqhth outpatient visit 15 minutesNew Mcclure Work Phone: [facility] [place] OrthopedicsComment on above:History of total knee arthroplasty, left (Primary Dx); Right hip painStart: 03-01-2019 End: 92-39-6744Scjccop encounter procedureSebenezer [employer] Phone: [employer] RadiologyStart: 02-23-2019 End: 85-66-2132Ozayzus encounter procedureOther OtherNorwalk Memorial Hospitaltart: 02-09-2019 End: 05-76-1066Fnnojimox encounterAmanda Aicha [place] OrthopedicsComment on above:Leg SwellingStart: 01-05-2019 End: 36-84-0646Ihohtyy encounter procedureOther OtherThe [facility]Health Good Samaritan Hospitaltart: 01-03-2019 End: 02-38-2087Lgscvx outpatient visit 15 minutesSccullen [employer] Phone: [facility] OrthopedicsComment on above:History of total knee arthroplasty, left (Primary Dx)Start: 12-14-2018 End: 82-73-6095Ovgmzqa encounter Omkar Green [employer] Phone: [employer] RadiologyStart: 12-14-2018 End: 30-24-1162Utwjte follow up visit related to original pxRajinder Green Work Phone: [facility] Healthfi[facility] [place] OrthopedicsComment on above:Hx of total knee arthroplasty, left (Primary Dx)Start: 12-06-2018 End: 69-38-8432Gjyprxopi encounterAmanda Aicha [place] OrthopedicsComment on above:Skin ProblemStart: 11-30-2018 End: 56-04-3216Qymdakl encounter procedureOther OtherNOTES/RESULTSStart: 11-21-2018 End: 10-03-1070Izduftcyio and management of inpatientSebenezer Mcclure [employer] Phone: [facility] Med SurgComment on above:Pain in left kneeStart: 10-23-2018 End: 16-56-4396Dshxllt encounter procedureSebenezer [employer] Phone: [facility] Pre AdmissionComment on above:Pre-op exam (Primary Dx)Start: 09-15-2018 End: 23-94-0452Brnnjhm encounter procedureBrandrashmi Velasquez [place] OrthopedicsStart: 47-68-6289NiyluuqvyiKdrc A WoodFacility:LucasStart: 82-50-6512BudlybfuxmYlkv A WoodFacility:LucasStart: 07-18-2017 End: 01-59-9167Brhttahsjy and management of inpatientSCOTT RUST HospitalStart: 45-98-7413YbcggstqhqUDIJQCleveland Clinic Ment[facility] Procedures DateProcedureProcedure DetailPerforming ClinicianStart: 05-15-2025 End: 96-51-1696Wpzetg field xm uni/bi w/interp extended examShaniquecarolinaamaury Zaira Mary Lou DO Work Phone: Start: 05-15-2025 End: 51-54-8192HrqukGe[facility]&eval comprhnsv estab pt 1/>Intermediate stage nonexudative age-related macular degeneration of both eyesRamon Thomsonsocorro DO Work Phone: comment on above:Intermediate stage nonexudative age- related macular degeneration of both eyes (Primary Dx); Long-term use of hydroxychloroquineStart: 53-44-1810Zfnvk foot complete minimum 3 viewsNicfreddyas Rashmi Harper DPM Work Phone: Start: 10-23-2024 End: 39-52-8234Zzszce emg ea extremty w/paraspinl area completeChristopher Moni DO Work Phone: Start: 19-81-7144Hrnomq field xm uni/bi w/interp extended examShaniquecarolinaamaury Zaira Mary Lou DO Work Phone: Start: 17-84-6255Xcuglhptwhxh ophthalmic imaging retinaJodwain Gilmore DO Work Phone: Start: 07-31-2024 End: 70-95-5307Ghrpe medical xm&eval comprhnsv estab pt 1/>Long-term use of hydroxychloroquineRamon Gilmore DO Work Phone: comment on above:Long-term use of hydroxychloroquine (Primary Dx); Intermediate stage nonexudative age-related macular degeneration of both eyes; Dry eyes; Left posterior capsular opacification; Blepharitis of upper and lower eyelids of both eyes, unspecified typeStart: 89-26-0609Ila routine ecg w/least 12 lds w/i&rSebenezer Mcclure MD Work Phone: Start: 61-84-2474Unsix typing serologic aboNew Mcclure MD Work Phone: Start: 19-91-4900Mpxsxjxv blood count with white cell differential, automatedNew Mcclure MD Work Phone: Start: 56-87-0378Vkhugarjbyurz metabolic panelSebenezer Mcclure MD Work Phone: Start: 69-72-4379Pxh prsmptv pthgnc organism scrn w/colony estimjSebenezer Mcclure MD Work Phone: Start: 49-45-3566Azrrzfyayw, reagent strip without microscopyNew Mcclure MD Work Phone: Start: 50-19-6825GktgnwuoxjpZvwqzjbr Brown DPM Work Phone: Start: 93-02-9663Fcorhormntdmzg aspir&/inj major jt/bursa w/o Miguel Mcclure MD Work Phone: Start: 33-28-8603Bdcab-articular injectionSebenezer Mcclure Work Phone: Start: 29-05-0846Rljtd-articular injectionSebenezer Mcclure Work Phone: Start: 34-74-3213Lqjht-articular injectionSebenezer Mcclure Work Phone: Start: 11-24-2018 End: 33-70-9148CER, EDIF, PLATELETChad Abby Work Phone: Start: 11-23-2018 End: 30-39-9758Ikecq count complete auto&auto difrntl wbcChad Abby Work Phone: Start: 11-22-2018 End: 94-02-9074Upaum count complete auto&auto difrntl wbcChad Abby Work Phone: Start: 11-21-2018 End: 17-83-8913X-ray of left kneeChad Abby Work Phone: Start: 11-21-2018 End: 60-07-6721Ndyz count misc body fluids w/differential countScojerad [employer] Work Phone: Start: 11-21-2018 End: 11-40-5125Dlj bact melissa aerobic isol xcpt ur blood/stoolSccullen [employer] Work Phone: Start: 11-21-2018 End: 24-43-0040Aztvfty bacterial any source anaerobic iso&idScojerad [employer] Work Phone: Start: 11-21-2018 End: 82-96-8356Zzrxafk fngi mold/yeast prsmptv oth xcpt bloodIaMirror42 Phone: Start: 11-21-2018 End: 35-92-3559Hyitbpb tubercle/oth acid-fast bacilli any isolIaMirror42 Phone: Start: 11-21-2018 End: 77-10-7044HFZPYX ABO/RH (D) TYPINGIacullen [employer] Work Phone: Start: 11-21-2018 End: 22-06-2592Frvhro nuc acid amp prb cult/isolate ea orgnismChazaira Green Work Phone: Start: 10-23-2018 End: 95-60-7033Gzxzpfve ECGIacullen [employer] Phone: Plan of Treatment DateCare ActivityDetailAuthorStart: 02-19-2026 End: 82-76-6624Rnprtyg encounter yqbcoktam19/15/2026 9:00 AM EDT Office Visit [facility] [address] [place] [address] Ramon Gilmore, DO [address] [place] [address] [facility] EyeStart: 11-27-2025 End: 43-15-7041Qetwbqk encounter mhkyyqjrq93/21/2026 10:30 AM EST Office Visit [facility] [address] [place] [address] New Mcclure MD [address] [place] [address] [facility] OrthopedicsStart: 09-05-2025 End: 09-59-7278Olsopgo encounter ykfszpzqk03/30/2025 8:30 AM EDT Procedure Visit [facility] [address] [facility] [address] [place] [address] Elie Harper DPM [address] [address] [facility] CI PODIATRYStart: 43-54-6898Qckjyguxl vaccination Influenza Vaccine (#1)[facility] HealthcareStart: 06-20-2025 End: 32-86-7858Ypsiops encounter qeunqqxdt97/14/2025 8:30 AM EDT Procedure Visit [facility] [address] [facility] [address] [place] [address] Elie Harper DPM [address] [address] Pain due to onychomycosis of toenails of both feet (Primary Dx)[facility] CI PODIATRYComment on above:Pain due to onychomycosis of toenails of both feet (Primary Dx)Start: 06-13-2025 End: 58-62-4190Usdvmmi encounter babqstxgq03/07/2025 9:50 AM EDT Procedure Visit [facility] [address] [facility] [address] [place] [address] Elie Harper DPM [address] [address] [facility] CI PODIATRYStart: 05-15-2025 End: 93-54-5820Lhcskgq encounter szaswnyfx72/09/2025 9:00 AM EDT Office Visit [facility] [address] [place] [address] Ramon Gilmore, [address] [place] [address] ArrivedNOMS NB OPHTComment on above:ArrivedStart: 05-03-2025 End: 72-56-5237Mgdpktd encounter mhwwvxeyh92/27/2025 10:00 AM EDT Office Visit [facility] [address] [place] [address] Ramon Gilmore, [address] [place] [address] [facility] OPHTStart: 05-01-2025 End: 88-58-6618Flcvdcm encounter omtyplvvf53/25/2025 9:40 AM EDT Office Visit CHAR KRISHNA [address] [place] [phone] Gaby Christianson NP [address] [place] [address] CHAR WATTStart: 04-08-2025 End: 49-53-0047Sbfqrld encounter yznunwkzx28/02/2025 9:20 AM EDT Office Visit CHAR HANSEN [address] [phone] Gaby Christianson NP [address] [place] [phone] CHAR ALONSOYStart: 04-04-2025 End: 22-48-7452Glhprzn encounter procedureNOMS CI PODIATRYComment on above:Pain due to onychomycosis of toenails of both feet (Primary Dx)Start: 03-14-2025 End: 40-43-4095Bndwoiq encounter vyxckjizm86/08/2025 11:00 AM EDT Procedure Visit CHAR KRISHNA [address] [place] [phone] Magalie Kaufman DO [address] [place] [address] CHAR VENTURAUEStart: 03-07-2025 End: 65-23-0747Armwdgu encounter procedureNOMS CI PODIATRYComment on above: Acquired deformity of left toe (Primary Dx); Other polyneuropathyStart: 02-28-2025 End: 33-79-6977Gsssiav encounter procedureANA BELLEVUEComment on above:Arrived Start: 02-20-2025 End: 02-02-9803Oqfwrzu encounter procedureNOMS SC PODComment on above:Acquired deformity of left toe (Primary Dx); Other polyneuropathyStart: 02-13-2025 End: 12-73-7785Pfwsftk encounter agqkqucxn48/09/2025 3:40 PM EDT Office Visit [facility] [address] [place] [address] Elie Harper DPM [address] [address] Acquired deformity of left toe (Primary Dx); Other polyneuropathyNOMS SC PODComment on above:Acquired deformity of left toe (Primary Dx); Other polyneuropathyStart: 01-31-2025 End: 68-78-9217Okvfaua encounter pfjeylzoj09/27/2025 10:30 AM EDT Procedure Visit CHAR KRISHNA [address] [place] [address] Magalie Kaufman DO [address] [place] [address] CHAR TURNEREVUEStart: 01-24-2025 End: 63-44-4468Naynwmp encounter ycybwgxho24/20/2025 2:40 PM EDT Procedure Visit [facility] [address] [place] [address] Elie Harper DPM [address] [facility] [address] [place] [address] [facility] CI PODIATRYStart: 01-24-2025 End: 07-08-2893Hvxextm encounter procedureNOMS [address]IR[address] MCDANIEL ROUTEStart: 01-17-2025 End: 99-02-0703Oqethzo encounter fycyckmtz60/13/2025 10:00 AM EDT Office Visit [facility] [address] [facility] [address] [place] [address] Elie Harper, DPM [address] [address] [facility] CI PODIATRYStart: 01-10-2025 End: 48-10-5966Iojtbju encounter aencpfoub08/06/2025 10:20 AM EST Office Visit [facility] [address] [address] Elie Harper DPM [address] [address] Cellulitis of left foot (Primary Dx); Acquired deformity of left toeNOMS CI PODIATRYComment on above:Cellulitis of left foot (Primary Dx); Acquired deformity of left toeStart: 01-02-2025 End: 48-64-6007Bccatba encounter hlklugleo59/26/2025 3:00 PM EST Office Visit [facility] P[facility] [address] [place] [address] Elie Harper DPM [address] PODComment on above:ArrivedStart: 12-12-2024 End: 22-36-0989Nckydde encounter procedureNOMS ERENDIRA MCDANIEL ROUTEComment on above:ArrivedStart: 45-12-7657Rrerrtway [Moles/volume] in Serum or Plasma [facility] SystemStart: 11-28-2024 End: 07-51-4441Xxjxwaf encounter wylqkbtxg95/22/2025 11:10 AM EST Office Visit [facility] [address] [place] [address] New Mcclure MD [address] [place] [address] [facility] OrthopedicsStart: 11-15-2024 End: 83-13-1868Lqhkomk encounter procedureNOMS CI PODIATRYComment on above:Pain due to onychomycosis of toenails of both feet (Primary Dx)Start: 11-03-2024 Potassium [Moles/volume] in Serum or PlasmaSt. Mary's Medical Center SystemStart: 10-25-2024 End: 76-04-1235Lugtcpm encounter procedureNOMS ERENDIRA STATE ROUTEComment on above:ArrivedStart: 10-23-2024 End: 37-85-1561Dofmeca encounter procedureNOMS NE NEUROComment on above:Arrived Start: 10-15-2024 End: 90-58-0787OVB 1 ExtremeityEMG 1 Extremeity Neurology Routine Paresthesias Expected: 10/15/2024, Expires: 10/15/2025[facility] Work Phone: comment on above:Expected: 10/15/2024, Expires: 10/15/2025Start: 10-15-2024 End: 92-69-4070Lenrowj encounter procedureNOMS ERENDIR[address] STATE ROUTEComment on above:ArrivedStart: 09-06-2024 End: 76-22-7929Cyenqqz encounter procedureNOMS CI PODIATRYComment on above:Pain due to onychomycosis of toenails of both feet (Primary Dx); Acquired deformity of left toeStart: 08-16-2024 End: 92-40-5997Atsbwol encounter procedureNOMS CI PODIATRYComment on above: Abscess of toe, right (Primary Dx); Acquired deformity of left toeStart: 08-02-2024 End: 36-47-1684Aptpmyb encounter procedureNOMS CI PODIATRYComment on above: Onychocryptosis (Primary Dx); Toe pain, right; Abscess of toe, right; Acquired deformity of left toeStart: 08-01-2024 End: 19-18-7974Dpryvvj encounter inqwdzrdc84/25/2024 2:00 PM EDT Office Visit [facility] [address] [place] [address] Audrey Gunter PA [address] [place] [address] [facility] SWS DERMStart: 07-31-2024 End: 19-92-5732Tqisywr encounter dwbluxfdi84/24/2024 9:45 AM EDT Office Visit [facility] [address] [place] [address] Ramon Gilmore DO [address] [place] [address] [facility] PELON OPHTStart: 07-26-2024 End: 93-87-5267Gnkcdqf encounter procedureNOMS [address]ENDIR[address] STATE ROUTEComment on above:ArrivedStart: 07-16-2024 End: 94-88-7999Apwtmbr encounter procedureNOMS [place] STATE ROUTEComment on above:Spinal stenosis of lumbar region, unspecified whether neurogenic claudication present (Primary Dx); Degenerative disc disease, lumbar; Facet arthritis of lumbar region; Blepharospasm; Polyneuropathy; ParesthesiasStart: 36-39-8298Dkcozyjhq vaccinationINFLUENZA VACCINE (#1)[facility] SystemStart: 06-28-2024 End: 57-46-8168Fsmolbp encounter buxzfhpmh73/22/2024 2:00 PM EDT Procedure Visit [facility] [address] [facility] [address] [place] [address] Elie Harper DPM [address] [facility] [address] [place] [address] Acquired deformity of left toe (Primary Dx); Onychomycosis; Toe pain, bilateralNOMS CI PODIATRYComment on above:Acquired deformity of left toe (Primary Dx); Onychomycosis; Toe pain, bilateralStart: 05-31-2024 End: 70-59-3555Srjckog encounter xjgjixnwl31/25/2024 9:30 AM EDT Office Visit [facility] [address] [place] [address], [place] [address] New Mcclure MD [address] [place] [address], [place] [address] [facility] OrthopedicsStart: 23-13-5625Suddfrfrq [Moles/volume] in Serum or PlasmaUniversity Hospitals St. John Medical Centertart: 04-25-2024 End: 80-01-9972Ggzfbic encounter qbkbjcinu76/19/2024 11:40 AM EDT Office Visit [facility] [address] [place] [address], [place] [address] Rajinder Green APRN-SET UP MECHANIC [address] [place] [address] [facility] OrthopedicsStart: 04-19-2024 End: 37-93-6804Mhqeapz encounter gmfdhtpge02/13/2024 10:00 AM EDT Office Visit [facility] [address] [place] [address], [place] [address] New Mcclure MD [address] [place] [address] [facility] OrthopedicsStart: 03-22-2024 End: 65-76-0537Fhgppiu encounter wptjxecvb69/16/2024 3:30 PM EDT Office Visit [facility] [address] [place] [address], [place] [address] New Mcclure MD [address] [place] [address] [facility] OrthopedicsStart: 02-23-2024 End: 80-84-5649Krtjnvq encounter joutzhjfw90/18/2024 11:00 AM EDT Office Visit [facility] [address] [place] [address], [place] [address] Rajinder Green, LAND APPRAISER-SET UP MECHANIC [address] [place] [address] [facility] OrthopedicsStart: 11-29-2023 End: 72-67-0652Hxllivqivl and management of inpatientThe [facility] PeriopComment on above:Failed total left knee replacement, initial encounterREVISION ARTHROPLASTY KNEEStart: 11-29-2023 End: 35-09-1894Dgdf tot knee arthrp fem&entire tibial componeREVISION ARTHROPLASTY KNEE Failed total left knee replacement, initial encounter 11/29/2023 10:00 AM ESTAVI ONT ORStart: 11-03-2023 End: 82-35-4022VOCVIEC TO TRANSFUSE RED BLOOD CELLSPREPARE TO TRANSFUSE RED BLOOD CELLS Blood Bank Routine Preop testing Expected: 11/03/2023, Expires: 12/05/2023[facility] Work Phone: Comment on above:Expected: 11/03/2023, Expires: 12/05/2023Start: 09-01-2023 End: 23-51-4105Pwcraum encounter vyxiifqzw77/26/2023 1:00 PM EDT Office Visit [facility] [address] [place] [address] New Mcclure MD [address] [place] [address] [facility] OrthopedicsStart: 15-46-9524Pxrnqbciu for malignant neoplasm of breastNOOK HealthcareStart: 62-04-3449NIMBZ-19 VACCINE ( season)COVID-19 VACCINE ( season)[facility]: 98-98-9500Sjrontawn vaccinationINFLUENZA VACCINE (#1)[facility]art: 04-14-2023 End: 24-48-9688wehklaonfw63/08/2023 Pre-Operative Nurse Assessment Internal MedicineThe [facility] Pre AdmissionStart: 47-79-8567NOIJJ-19 VACCINE (5 - Pfizer series)COVID-19 VACCINE (5 - Pfizer series)[facility]: 07-08-2021 Influenza vaccinationINFLUENZA VACCINE (Season Ended)[facility] SystemStart: 11-19-2020 End: 60-44-3154Lhqten Visit11/19/2020 Office Visit OrthopaedicNew Castellano MD [address] [place] [address] [phone] [facility] OrthopedicsStart: 50-69-8388Dqyibxsoq molar [facility] Work Phone: Start: 40-14-6037Gbomemzeq molar [facility] Work Phone: Start: 11-22-2019 End: 08-57-3613Hblieq Visit11/22/2019 Office Visit OrthopaedicNew Castellano MD [address] [place] [address] [phone] [facility] OrthopedicsStart: 40-26-5433Kphyaxzfh molar concSt. Mary's Medical Center SystemStart: 70-10-9389Byertzkzswsx vaccinationPNEUMOCOCCAL VACCINE SERIES (2 of 2 - PPSV23 or PCV20)[facility]: 26-61-6037Wkthynnlbjro Vaccine: 65+ Years (2 of 2 - PPSV23 or PCV20)Pneumococcal Vaccine: 65+ Years (2 of 2 - PPSV23 or PCV20)[facility] HospitalStart: 57-02-5950Fjdlchduo vaccinationFAYETTE COUNTY MEMORIAL HOSPITALStart: 04-18-2019 End: 27-47-0622Wmokcs Visit04/18/2019 Office Visit New Lucas MD [address] [place] [address] [phone] [facility] OrthopedicsStart: 03-01-2019 End: 81-83-9033Xfoayb VisitThe [facility] OrthopedicsComment on above:Arrived History of total knee arthroplasty, left (Primary Dx)Start: 02-23-2019 End: 87-46-8808R-ray of left kneeXR KNEE LEFT 2 VIEWS Imaging Routine History of total knee arthroplasty, left Expected: 02/23/2019,Expires: 03/23/2019[facility] HEALTHComment on above:Expected: 02/23/2019, Expires: 03/23/2019Start: 01-03-2019 End: 43-19-4836Kjgsylzcie35/27/2019 Office Visit Orthopaedics New Mcclure MD [address] [place] [address] [phone] [facility] OrthopedicsStart: 12-28-2018 End: 51-77-1206U-ray of left kneeXR KNEE LEFT 2 VIEWS Imaging Routine History of total knee arthroplasty, left Expected: 12/28/2018,Expires: 01/25/2019[facility]ENTERTA HEALTHComment on above:Expected: 12/28/2018, Expires: 01/25/2019Start: 12-14-2018 End: 99-85-7290TkbqxzdckbAoksu Health RadiologyStart: 41-53-7221Gwcmszgaul 11/21/2018 Procedure PassThe [facility] PeriopStart: 19-27-7876Serkddeer EncounterThe [facility] PeriopComment on above:REVISION ARTHROPLASTY KNEE - extensor mech reconstruction - leftExtensor mechanism malalignmentStart: 10-23-2018 End: 29-00-0677Crczmuyojh53/17/2018 Pre-Operative Nurse Assessment Internal MedicineThe [facility] Pre AdmissionStart: 74-33-4036Kvrjwdo of potassium level (finding)[facility] Work Phone: Start: 41-64-9075Bbobnhlmzaom vaccinationParkwood Hospital SystemStart: 04-83-2792Iowdteygt vaccinationINFLUENZA VACCINE (#1)[facility] Work Phone: Start: 89-54-8843CMU VACCINE (1 - 1-dose 60+ series) RSV VACCINE (1 - 1-dose 60+ series)[facility] [address] [facility] Work Phone: Start: 72-17-1014Stoswpz mass concCOLON CANCER SCREENING [facility] Work Phone: Start: 01-13-9799Jjfmzd vaccine hzv live for subcutaneous useZOSTER (SHINGLES) VACCINE (1 of 2)[facility]: 73-53-4297Znktygbny for malignant neoplasm of colonCOLORECTAL CANCER SCREENING DISCUSSIONSelect Medical Specialty [facility]: 56-98-7267Kobxbkx lipid profileLIPID SCREENINGChillicothe Hospital Work Phone: Start: 42-55-6462Ezvyh panelLIPID SCREENINGSelect Medical Specialty [facility]: 44-37-1671Xxadtej mass concMAMMOGRAM SCREENING DISCUSSION [facility] Work Phone: Start: 77-14-2429Gthuijdhp for malignant neoplasm of breastMAMMOGRAM SCREENING DISCUSSIONSelect [facility]: 1995 Screening mammographyMAMMOGRAM SCREENING [facility] Work Phone: Start: 37-93-4784Zbldttfmc for malignant neoplasm of cervixSelect Medical Specialty [facility]: 69-17-4740Lgkgk diphtheria, tetanus and acellular pertussis (DTaP) vaccinationTDAP (ADULT)[facility]: 83-39-7372Qfcxehx vaccinationSelect [facility] [place] Work Phone: Start: 15-80-2769WVGJW-19 VACCINE (1)COVID-19 VACCINE (1)[facility]: 88-83-4216Wjqtbbnok C screeningHEPATITIS C VIRUS SCREENINGSelect [facility]: 34-56-9142Emjlchqun for malignant neoplasm of colonNOMS HealthcareStart: 82-77-6311Pfxafnd vaccinationTEHONORHEALTH SCOTTSD[facility]OM[facility] MED[facility] CENTERUSAUniversity Hospitals Beachwood Medical Centertart: 1955 End: 29-99-5861Ygcfnvdda C antibody, confirmatory testHEPATITIS C VIRUS [facility] Work Phone: Start: 1955 End: 62-89-1207Qamsypcmk for osteoporosisDEXA SCAN DISCUSSIONUc Health ACID FAST [facility] Work Phone: Comment on above:ONE TIME for 1 Occurrences starting 11/21/2018ANAEROBE [facility] Work Phone: Comment on above:ONE TIME for 1 Occurrences starting 11/21/2018BACTERIAL CULTURE AND DIRECT SMEAR, LESION, TISSUE, DEVICEBACTERIAL CULTURE AND DIRECT SMEAR, LESION, TISSUE, DEVICE Routine Extensor mechanism malalignment ONE TIME for 1 Occurrences starting 11/21/2018[facility] Work Phone: Comment on above:ONE TIME for 1 Occurrences starting 11/21/2018Basic metabolic 2000 panel - Serum or PlasmaBASIC METABOLIC PANEL Routine Pre-op exam Ordered: 10/23/2018[facility] Work Phone: Comment on above:Ordered: 10/23/2018BODY FLUID CULTURE AND DIRECT SMEARBODY FLUID CULTURE AND DIRECT SMEAR Routine 11/21/2018 11:00 AM [facility] Work Phone: CBC, EDIF, PLATELETCBC, EDIF, PLATELET Routine Pre-op exam Ordered: 10/23/2018[facility] Work Phone: Comspjd on above:Ordered: 10/23/2018[facility]romyography [facility] HospitalFUN[facility] Work Phone: Comscpu on above:ONE TIME for 1 Occurrences starting 11/21/2018Hemoglobin A1c/Hemoglobin.total mass fraction (Bld)HEMOGLOBIN A1C Routine Pre-op exam Ordered: 10/23/2018[facility] Work Phone: Comgbpx on above:Ordered: 10/23/2018LARGE JOINT INJECTION: R kneeLARGE JOINT INJECTION: R knee Procedures Routine Right knee pain, unspecified chronicity 04/18/20194:00 PM [facility] CenterPROTIME-INRPROTIME-INR STAT Pre-op exam Ordered: 10/23/2018[facility] Work Phone: Comment on above:Ordered: 10/23/2018Radiography for bone length studiesXR BONE LENGTH STUDY Imaging Routine Hx of total knee arthroplasty, right 09/01/2023 12:48 PM EDTAPageBites SystemRadiography for bone length studiesXR BONE LENGTH STUDY Imaging Routine Hx of total knee arthroplasty, left Ordered: 4APressi SystemComment on above: Ordered: 4Radiography of hipXR HIP WITH PELVIS RIGHT Imaging Routine Right hip pain 03/01/2019 2:59 PM [facility] HEALTHSCREEN: MRSA ONLY, NARES (ISOLATION SCREEN)SCREEN: MRSA ONLY, NARES (ISOLATION SCREEN) Routine Pre-op exam Ordered: 10/23/2018[facility] Work Phone: Comment on above:Ordered: 10/23/2018Standard ECGECG Routine Pre-op exam 10/23/2018 8:53 AM [facility] Work Phone: TISSUE CULTURETISSUE CULTURE Routine 11/21/2018 11:00 AM [facility] Work Phone: TYPE AND SCREEN - POSSIBLE TRANSFUSIONTYPE AND SCREEN - POSSIBLE TRANSFUSION Routine Pre-op exam Ordered: 10/23/2018[facility] Work Phone: Comment on above:Ordered: 10/23/2018TYPE AND SCREEN - POSSIBLE TRANSFUSIONTYPE AND SCREEN - POSSIBLE TRANSFUSION Blood Bank Today Preop testing 11/03/2023 9:50 AM [facility] [facility] SystemURINALYSIS, MACRO URINALYSIS, MACRO Routine Pre-op exam Ordered: 10/23/2018[facility] Work Phone: Comment on above:Ordered: 10/23/2018X-ray of left knee [facility] Work Phone: End: 72-03-7303T-ray of left kneeXR KNEE LEFT 2 VIEWS Imaging Routine History of total knee arthroplasty, left 1 Occurrences starting 03/01/2019 until 03/01/2019[facility] HEALTHComment on above:1 Occurrences starting 03/01/2019 until 03/01/2019XR Knee - left 2 ViewsXR KNEE LEFT 2 VIEWS Imaging Routine Left knee pain, unspecified chronicity 03/18/2023 11:12 AM [employer] SystemXR Knee - left 2 ViewsXR KNEE LEFT 1-2 VIEWS Imaging Routine Hx of total knee arthroplasty, left 12/22/2023 1:17 PM [employer] SystemXR Knee - left 2 ViewsXR KNEE LEFT 1-2 VIEWS Imaging Routine Hx of total knee arthroplasty, left 02/23/2024 11:01 AM [employer] SystemXR Knee - left 2 ViewsXR KNEE LEFT 1-2 VIEWS Imaging Routine Pain in both knees, unspecified chronicity 03/22/2024 3:36 PM [employer] [facility] Work Phone: XR Knee - left 2 ViewsXR KNEE LEFT 1-2 VIEWS Imaging Routine Pain in both knees, unspecified chronicity 04/19/2024 10:07 AM [employer] SystemXR Knee - left 2 ViewsXR KNEE LEFT 1-2 VIEWS Imaging Routine Pain in both knees, unspecified chronicity 05/31/2024 9:37 AM [employer] [facility] XR Knee - left 3 ViewsXR KNEE LEFT 3 VIEWS Imaging Routine Hx of total knee arthroplasty, left 09/01/2023 12:48 PM [employer] [facility] Work Phone: XR Knee - left 3 ViewsXR KNEE LEFT 3 VIEWS Imaging Routine Hx of total knee arthroplasty, left 11/28/2024 11:17 AM [employer] Work Phone: XR Knee - right 2 ViewsXR KNEE RIGHT 2 VIEWS Imaging Routine Right knee pain, unspecified chronicity 03/18/2023 11:12 AM [employer] [facility] End: 54-02-9922AK Knee - right 2 [employer] Work Phone: Comment on above:1 Occurrences starting 01/12/2024 until 01/12/2024 End: 51-67-7054AS Knee - right 2 ViewsKepware Technologies SystemComment on above:1 Occurrences starting 02/23/2024 until 02/23/2024XR Knee - right 2 ViewsXR KNEE RIGHT 1-2 VIEWS Imaging Routine Pain in both knees, unspecified chronicity 03/22/2024 3:36 PM [employer] SystemXR Knee - right 2 ViewsXR KNEE RIGHT 1- 2 VIEWS Imaging Routine Pain in both knees, unspecified chronicity 04/19/2024 10:07AM [employer] Work Phone: XR Knee - right 2 ViewsXR KNEE RIGHT 1-2 VIEWS Imaging Routine Pain in both knees, unspecified chronicity 05/31/2024 9:37 AM [employer] SystemXR Knee - right 2 ViewsXR KNEE RIGHT 1-2 VIEWS Imaging Routine Hx of total knee arthroplasty, right 11/28/2024 11:17 AM ESTKepware Technologies SystemXR Knee - right 3 ViewsXR KNEE RIGHT 3 VIEWS Imaging Routine Hx of total knee arthroplasty, right 05/19/2023 2:33 PM [employer] Work Phone: XR Knee - right 3 ViewsXR KNEE RIGHT 3 VIEWS Imaging Routine Hx of total knee arthroplasty, right 09/01/2023 12:48 PM [employer] SystemXR Knee - right 3 ViewsXR KNEE RIGHT 3 VIEWS Imaging Routine Right knee pain, unspecified chronicity Ordered: 4APageBites SystemComment on above:Ordered: 01/09/2024 Immunizations Immunization DateImmunizationNotesCare IhrrfiktSyqzrhys39-91-2268qsqnhftsp virus vaccine, unspecified formulationRamon Gilmore DO Work Phone: [facility]OS[facility] for ChildrenTtvswmgkgo86-52-7509hwktvdnfc virus vaccine, unspecified formulationSebenezer Mcclure MD Work Phone: [facility] Dtcppq73-58-6614bhxmhvmms virus vaccine, unspecified formulationChazaira SCHWARTZ Work Phone: [facility] Zvipwa86-86-0389fmuysnbwxdnr conjugate vaccine, 13 valJim Harper DPM Work Phone: [facility] HospitalOyrnqfoxtt54-99-5733wiudjwsxb virus vaccine, unspecified formulationRichard [facility] Work Phone: Payers DatePayer CategoryPayerPolicy [id number]-uhi [id number] Cross Blue ShieldBCBS [id number]58.44661-15-1695Girvmbt 1.2.840.423722.1.13.172.2.7.3.622174.315 2018MedicareMEDICARE MEDICARE A AND B xxxxxxxxxxx 2017-Present [place], [place] [id number] 2018MedicareMEDICARE MEDICARE A AND B [id number] 2017-Present [place], [id number] 1.2.840.361847.1.13.172.2.7.3.901086.315 2018Medicare 1.2.840.100759.1.13.172.2.7.3.814020.76777-00-9923AqalaczAQCNDA ANTHEM TRADITIONAL xxxxxxxxxxxx 2017-Presentxxxxxxxxxxxx 1.2.840.672382.1.13.172.2.7.3.218390.82603-04-9657KvlxqsyGIKKMF ANTHEM TRADITIONAL [id number] 2017-[id number] 1.2.840.557462.1.13.172.2.7.3.904105.315 [id number] 2.16.840.6.388620.90698726-81-0770AkpoMountain View Regional Medical [id number] 2.16.840.4.133218.17928408-28-3552Uvmmntb2588984 2.16.840.1.060632.3.579.2.593 73-45-6854Iuyomni9120476 2.16.840.1.618962.3.579.2.23010-44-3434Xcxazkv0478313 2.16.840.1.374243.3.579.2.68093-10-9544Iqpokrq8448737 2.16.840.1.476504.3.579.2.02112-61-8016Tsvvpgz0408598 2.16.840.1.347420.3.579.2.31901-44-1773Dlctmff5396976 2.16.840.1.641150.3.579.2.80617-28-7394Veeiwxw4037201 2.16.840.1.070297.3.579.2.47964-72-7530Rvofvjz0420008 2.16.840.1.080282.3.579.2.45683-14-5870Rjejbsz41467550 2.16.840.1.995718.3.579.2.81844-65-4312Eliyrrf88671960 2.16.840.1.432332.3.579.2.94341-86-9425Noxngrw04153661 2.16.840.1.361682.3.579.2.85863-28-3933Lwkscuk87697166 2.16.840.1.041775.3.579.2.42202-78-2578Xjnnlnd59894810 2.16.840.1.789746.3.579.2.82958-47-6901Dobyzlu70061839 2.16.840.1.150112.3.579.2.49834-22-0928Sejrjhs39641084 2.16.840.1.124978.3.579.2.32404-69-6094Jhlxyqt78407376 2.16.840.1.037516.3.579.2.53936-73-0484Wkmnzuo12715491 2.16.840.1.837739.3.579.2.48568-81-4397Nratqlk00810479 2.16.840.1.429491.3.579.2.18882-68-2758Kwffhvs53897925 2.16.840.1.615026.3.579.2.87526-83-0239Smxyqbs72886149 2.16.840.1.571124.3.579.2.75702-92-0582Asrwefx67693629 2.16.840.1.230281.3.579.2.46895-17-0469Tqxltit38448055 2.16.840.1.330049.3.579.2.17587-00-0428Nywkxds99542981 2.16.840.1.345178.3.579.2.304420-61-4267Elrabhs21262803 2.16.840.1.020372.3.579.2.951820-28-0490Fxnhtgk0898663 2.16.840.1.370878.3.579.2.738854-43-5984Tavjhyy9487414 2.16.840.1.423919.3.579.2.496946-35-6140Pyyhxig8882181 2.16.840.1.511737.3.579.2.411122-39-5512Ejtyltz6786190 2.16.840.1.772081.3.579.2.352257-32-6064Iitkckt4914157 2.16.840.1.662782.3.579.2.472796-34-9771Pltnesn4483814 2.16.840.1.937313.3.579.2.068309-09-2653Ayitvmb6588578 2.16.840.1.526808.3.579.2.882365-57-0619Abnemzq2604549 2.16.840.1.827309.3.579.2.176052-77-0522Pgeggxt5827446 2..840.1.201213.3.579.2.706651-56-6786Qgamlea2748714 2.840.1.742196.3.579.2.401281-82-0911Lqaakgt8146712 2..840.1.901108.3.579.2.464547-01-9328Qhwpfuw9379839 2..840.1.605323.3.579.2.208438-94-1189Cgowuqh8586678 2.840.1.131333.3.579.2.929808-33-4957Rvkqjzz4635812 2.840.1.160220.3.579.2.600774-30-2850Donjxlu7434985 2..840.1.196779.3.579.2.169199-72-2168Mnfzmfb5886819 2.16.840.1.020833.3.579.2.412623-49-7453Bwvqpip7234210 2.16.840.1.968971.3.579.2.518599-13-1073Udgtgwm9247946 2.16.840.1.019599.3.579.2.408484-38-3822Qwvmgeg3529063 2.16.840.1.283339.3.579.2.446095-76-8486Jrabgax4135621 2.16.840.1.751134.3.579.2.202933-89-6337Kxjrygo7974230 2.16.840.1.562496.3.579.2.337108-53-9839Ltatjyn1923872 2.16.840.1.463767.3.579.2.510468-33-6895Bsdbhdw4234856 2.16.840.1.893617.3.579.2.103546-53-6238Ngcpyrz7053898 2..840.1.420006.3.579.2.1259[facility] Krfgtclyw654346960WawnefjJME [id number] 534c6l13-znp5-54eg-c266-1y3856iy393kJfpvoni01386284 2.16.840.1.559605.3.579.2.531 Social History DateTypeDetailFacilityStart: 10-23-2018 End: 09-76-1990Ufzmozh smoking status NHISNever smokerParkwood Hospital SystemStart: 54-07-8672Koy Assigned At BirthNot on [facility] Work Phone: Start: 11-21-2019 End: 89-41-0743Wknveng intakeCurrent non-drinker of alcohol (finding)[facility]ALTHStart: 11-19-2020 End: 23-18-9907Jicectl use and exposureNever usedParkwood Hospital SystemStart: 05-19-2023 End: 62-61-6874Ici Assigned At BirthParkwood Hospital SystemStart: 05-19-2023 End: 23-93-4290Kozfryw of Social functionParkwood Hospital SystemStart: 03-30-2023 Gender identityIdentifies as female gender (finding)[facility] SystemStart: 04-16-2023 End: 24-00-2135Tzgqiszz to SARS-CoV-2 (event)Not sureParkwood Hospital SystemStart: 58-95-2666Duk [facility]Has the electric, gas, oil, or water company threatened to shut off services in your home in past 12MoNoASelect Medical Specialty [facility] System(I/We) worried whether (my/our) food would run out before (I/we) got money to buy more.Never [facility] HospitalIn the past 12 months, has lack of transportation kept you from medical appointments or from getting medications?NoParkwood Hospital SystemStart: 08-16-2024 End: 74-86-2168Uueaavfpo beverage intakeDeferNOOK HealthcareStart: 04-24-2024 Alcohol CommentCaffeine: Current some daysDAVIS HOSPITAL AND MEDICAL [facility] HealthcareStart: 53-53-5081Wnhsze orientationHeterosexual (finding)[facility] HealthcareSexFemale (finding)[facility] Medical Equipment Procedure CodeEquipment CodeEquipment Original TextEquipment IdentifierDates Prolite Mesh 25.4 Cm X 35.5cmStart: 02-21-2992Fcjpcoa R 1x40 Single - [id number] Start: 18-87-7734Kizyddf Mesh 25.4 Cm X 35.5cmStart: 77-81-8241Aegoswq R 1x40 Single - [id number]: 62-44-9240Jnhhbwy Mesh 25.4 Cm X 35.5cmStart: 46-46-7661Nxfmumt R 1x40 Single - [id number]: 12-53-4123Ygetije Mesh 25.4 Cm X 35.5cmStart: 90-56-8204Yxubweu R 1x40 Single - [id number]: 11-21-2018 Prolite Mesh 25.4 Cm X 35.5cmStart: 88-55-5254Cymlxtb Mesh 25.4 Cm X 35.5cm Start: 97-48-3292Kczwidx R 1x40 Single - [id number]: 36-28-6999Muxckdv R 1x40 Single - [id number]: 13-79-9655Koupzap Mesh 25.4 Cm X 35.5cmStart: 41-55-4700Dughqrj Mesh 25.4 Cm X 35.5cmStart: 23-18-0917Oisypag R 1x40 Single - [id number]: 25-02-8011Fnwxben R 1x40 Single - [id number]: 11-21-2018 Prolite Mesh 25.4 Cm X 35.5cmStart: 07-70-5753Ovavxpa Mesh 25.4 Cm X 35.5cm Start: 03-64-7729Yaenfly R 1x40 Single - [id number]: 98-45-4131Didmofl R 1x40 Single - [id number]: 14-99-7435Mdpdkms Mesh 25.4 Cm X 35.5cmStart: 30-18-6612Zyfgheg Mesh 25.4 Cm X 35.5cmStart: 75-49-1357Ytsrkqh R 1x40 Single - [id number]: 80-68-1063Qkygevo R 1x40 Single - [id number]: 11-21-2018 Prolite Mesh 25.4 Cm X 35.5cmStart: 54-43-7537Hsvxcer Mesh 25.4 Cm X 35.5cm Start: 60-78-3336Tbcznxu R 1x40 Single - [id number]: 88-87-3125Alirgli R 1x40 Single - [id number]: 56-76-1083Eyhgqod Mesh 25.4 Cm X 35.5cmStart: 17-23-1591Vtjeszx Mesh 25.4 Cm X 35.5cmStart: 62-39-5944Tcvrnsg R 1x40 Single - [id number]: 50-86-9694Gylkioc R 1x40 Single - [id number]: 11-21-2018 Prolite Mesh 25.4 Cm X 35.5cmStart: 44-54-1610Xvmlmlg Mesh 25.4 Cm X 35.5cm Start: 45-15-3419Nxxintp R 1x40 Single - [id number]: 41-71-2153Byvcgpq R 1x40 Single - [id number]: 07-39-0646Mrkyksp Mesh 25.4 Cm X 35.5cm568159_imp Start: 84-96-7831Nxsumip R 1x40 Single - [id number]_lqeYanfy: 11-21-2018 Prolite Mesh 25.4 Cm X 35.5cmStart: 17-04-5180Kvaeart Mesh 25.4 Cm X 35.5cm Start: 97-61-8470Qnntkkk R 1x40 Single - Tzl385657Samtt: 88-50-8282Oljljaw R 1x40 Single - [id number]: 88-88-5647Btfsqmx Mesh 25.4 Cm X 35.5cmStart: 40-78-4659Zamrcbh R 1x40 Single - [id number]: 19-91-0037Zckmdfc Mesh 25.4 Cm X 35.5cmStart: 53-50-6446Bqnhwhu Mesh 25.4 Cm X 35.5cmStart: 23-91-1550Tkiudwl R 1x40 Single - [id number]: 17-75-6947Ppqeokl R 1x40 Single - [id number] Start: 23-69-2707Aqruqf Tibial Insert Fixed Bearing Posterior Stabilized [id number]_impStart: 65-45-6340Agjqbu Knee System Revision Distal Femoral Augment Size 7 12mm Xmmsbiyc4795667_olwYegrq: 23-66-1670Fnhxiew Mesh Polypropylene Nonabsorbable Synthetic Surgical Mesh 12 X 12 1276196_impStart: 11-29-2023 [facility] [facility] Knee System Revision Pressfit Stem 12mm X 60mm1276232_impStart: 36-73-8924Cymiqw Knee System Revision Distal Femoral Augment Size 7 12mm Bxrstzwy1351832_hyxQhqwb: 83-08-3230Jxncrk Knee System Revision Tibial Base Rotating Platform Size 5 Cgixsjbo1277616_zjoUeals: 57-20-8131Shfkok Knee System Revision Tibial Sleeve Poracoat Partially Coated 37mm1276242_impStart: 68-39-6423Nwrgrz Knee System Revision Femoral Sleeve Porocoat Partially Coated 40mm1276245_impStart: 52-50-3547Mjteeb Knee System Revision Posterior Femoral Augment Size 7 4mm Nbnvjbds5019087_pgpQryzq: 37-56-9738Xldfrv Knee System Revision Crs Femoral Size 7 Left Clmdixyb0207016_umrYlnzy: 61-43-1310Exshtcp R+G 1x40 Single With Gentamicin - [id number]_vefGswky: 80-46-5764Cuopwbk R 1 X 40 Us - [id number]_pzyZordc: 20-43-5291Pzcoqo Knee System Revision Tibial Base Fixed Ndvczwh8408166_dnxBowgx: 13-21-9094Jprchr Femoral Posterior Xqgizwpcoa0703159_rbgMauio: 37-39-4636Izufqg Patella Medialized Caif1505014_yok Start: 43-77-5763Aazdapcj Cancellous Bone Cykdl8306809_ltqHkglz: 04-26-2023 Attune Knee System Revision Pressfit Ctcp7362757_vikLoyxx: 00-75-8235Olkdrqk R & G Bone Cement High-Viscosity With Gentamicin - [id number]_pniLqzqy: 80-69-3072Uowjyf Knee System Revision Crs Rotating Platform Wohbzq7417048_cmg Start: 11-29-2023 Clinical Notes 03-11-2021 to 06-20-2025 Note Date & OxtzHhwsEpbcrnwr53-88-0801 History of Present illness Narrative* Elie Harper, PK - 06/20/2025 8:30 AM EDT Patient: Danyelle Haskins : [...] mouth in the morning., Disp: , Rfl: Tswnupjghsw-Cbvtosrid-Tan C-Mn (Glucosamine 1500 Complex) capsule, as directed [...] Insecurity: No Food Insecurity (11/29/2023) Received from [facility] Hunger Vital Sign Worried About Running Out of Food in the Last Year: Never true Ran Out of Food in the Last Year: Never true Transportation Needs: No Transportation Needs (11/29/2023) Received from [facility] PRAPARE - Transportation Lack of Transportation (Medical): No Lack of Transportation (Non-Medical): No Physical Activity: Not on file Stress: Not on file Social Connections: Not on file Intimate Partner Violence: Not on file Housing Stability: Low Risk (11/29/2023) Received from [facility] Housing Stability Vital Sign Unable to Pay [...] 10 Elie Harper DPM documented in this encounterSt. Luke's HospitalXjxgdfxcwl03-92-3840 NoteRight Eye Reliability was good. Progression has been stable. Foveal threshold was normal. Findings include normal observations. Left Eye Reliability was good. Progression has been stable. Foveal threshold was normal. Findings include normal observations.St. [facility] HospitalKnkljioosd38-59-1234 NoteRight Eye Quality was good. Scan locations included subfoveal. Progression has been stable. Findings include normal observations. Left Eye Quality was poor. Scan locations included subfoveal. Progression has been stable. Findings include normal observations. Notes Good scan with normal appearanceSt. Luke's HospitalXabbxoqwlj92-84-3720 History of Present illness Narrative* Ramon Gilmore DO - 05/15/2025 9:00 AM EDT [...] exam. Gradual worsening Last edited by Ramon Gilmore DO on 05/15/2025 10:02 AM. No [...] 1,000 mcg by mouth in the morning. Yfbecuqvwnh-Ntdcjgtyc-Bei C-Mn (Glucosamine 1500 Complex) capsule as directed [...] above evaluations. This will be adjusted to q4ddnewd when deemed necessary due to macular risk [...] laser capsulotomy, they are to notify their statistical programmer analyst promptly if they have a significant change in symptoms, such as flashes of light (photopsia), an increase in floaters, loss of visual field or decrease in visual acuity. Blepharitis of upper and lower eyelids of both eyes, unspecified type - Blepharitis, posterior type OU - The patient exhibits inspissated meibomian glands. Warm compresses, lid massage and lid scrubs were recommended. documented in this encounterSt. Luke's HospitalVugbeexphm38-64-3895 Evaluation note* Diagnosis Onset Date Resolution Status Admit Date Blepharospasm chronicJune 2024 9:33amCarpal tunnel syndrome, bilateralchronicJune 2024 9:33amDDD (degenerative disc disease), lumbarchronicJune 2024 9:33am Facet arthritis of lumbar regionchronicJune 2024 9:33amPolyneuropathy chronicJune 2024 9:33amSpinal stenosis of lumbar regionchronicJune 2024 9:33am [facility] Work Phone: 1(580) 538-488806-25-2025 Evaluation note* Diagnosis Onset Date Resolution Status Admit Date Blepharospasm chronicJune 2024 9:33amCarpal tunnel syndrome, bilateralchronicJune 2024 9:33amDDD (degenerative disc disease), lumbarchronicJune 2024 9:33am Facet arthritis of lumbar regionchronicJune 2024 9:33amPolyneuropathy chronicJune 2024 9:33amSpinal stenosis of lumbar regionchronicJune 2024 9:33amBlepharospasmchronicSeptember 2024 10:38amCarpal tunnel syndrome, bilateralchronicSeptember 2024 10:38amPolyneuropathychronic Alanis 2024 10:38amSpinal stenosis of lumbar regionchronicSeptember 2024 10:38am [facility] Work Phone: 1(442) 461-761406-25-2025 Evaluation note* Diagnosis Onset Date Resolution Status Admit Date Blepharospasm chronicJune 2024 9:33amCarpal tunnel syndrome, bilateralchronicJune 2024 9:33amDDD (degenerative disc disease), lumbarchronicJune 2024 9:33am Facet arthritis of lumbar regionchronicJune 2024 9:33amPolyneuropathy chronicJune 2024 9:33amSpinal stenosis of lumbar regionchronicJune 2024 9:33amFacet arthropathy, lumbaracuteSeptember 2024 10:38am BlepharospasmchronicSeptember 2024 10:38amCarpal tunnel syndrome, bilateralchronicSeptember 2024 10:38amPolyneuropathychronicSeptember 2024 10:38amSpinal stenosis of lumbar regionchronicSeptember 2024 10:38am [facility] Work Phone: 1(862) 635-890105-29-2025 History of Present illness Narrative* Elie Harper, [...] Peripheral neuropathy Polyneuropathy PVD (peripheral vascular disease) (CMS/[facility]) Radiculopathy, lumbosacral region Small fiber neuropathy Spinal [...] mouth in the morning., Disp: , Rfl: [id number]-Kyb C-Mn (Glucosamine 1500 Complex) capsule, as directed [...] Insecurity: No Food Insecurity (11/29/2023) Received from [facility] Hunger Vital Sign Worried About Running Out of Food in the Last Year: Never true Ran Out of Food in the Last Year: Never true Transportation Needs: No Transportation Needs (11/29/2023) Received from [facility] - Transportation Lack of Transportation (Medical): No Lack of Transportation (Non-Medical): No Physical Activity: Not on file Stress: Not on file Social Connections: Not on file Intimate Partner Violence: Not on file Housing Stability: Low Risk (11/29/2023) Received from [facility] Housing Stability Vital Sign Unable to [...] 10 Elie Harper DPM documented in this [facility]05-14-2025 Telephone encounter Note* Telephone Encounter - Gaby Christianson NP - 03/20/2025 3:00 PM EDT OARRS reviewed. Due now. [facility] sent. [id number] Miscellaneous Notes* Telephone Encounter - Gaby Christianson NP - 03/20/2025 3:00 PM EDT OARRS reviewed. Due now. Prescription sent. * Telephone Encounter - REGINALD Snider - 03/20/2025 2:24 PM EDT Patient left message requesting refill of pregabalin 25mg sent to [facility] in [place]. (.Continue Lyrica 25 mg by mouth twice a day ... Per Gaby Christianson NP on 12/12/24) documented in this [facility]05-14-2025 Telephone encounter Note* Telephone Encounter - REGINALD Snider - 03/20/2025 2:24 PM EDT Patient left message requesting refill of pregabalin 25mg sent to [facility] in [place]. (.Continue Lyrica 25 mg by mouth twice a day ... Per Gaby Christianson NP on 12/12/24) [facility] [id number] History of Present illness Narrative* Elie Harper [...] mouth in the morning., Disp: , Rfl: Wdaspbszjsq-Bsqedhukx-Mng C-Mn (Glucosamine 1500 Complex) capsule, as directed [...] gear Elie Harper DPM documented in this [facility]04-24-2025 History of Present illness Narrative* Magalie Kaufman [...] were sterilized with 70% isopropanol. Lot # [id number] Expiration: 01/2026 Dilution Per 100 units diluted with 1mL of 0.9% Sodium Chloride Procedure Right superior Lateral orbicularis oculi 7.5 units Right lateral orbicularis oculi 7.5 units Right inferior lateral orbicularis oculi 7.5 units Right inferior orbicularis oculi medial 2.5 units Right superior medial orbicularis oculi 2.5 units Right fiber technologist 2.5 units Right masseter 5+10+5 units Right [...] when to seek emergent treatment. Procedure Codes 82163 Chemodenervation of facial muscle J0585 Botulinum toxin a per unit, Units: Follow Up 3 months Botox documented in this encounterSt. Luke's HospitalOkuhlrquko93-52-1362 History of Present illness Narrative* Elie Harper [...] mouth in the morning., Disp: , Rfl: Ngvkcobzvet-Jxnufrlwu-Ayu C-Mn (Glucosamine 1500 Complex) capsule, as directed [...] hours Elie Harper DPM documented in this [place] [id number] Telephone encounter Note* Telephone Encounter - Elie Estrada MA - 02/19/2025 12:47 PM EDT Strange the med got removed. The Lyrica is needing refill. Added. [address]Oibcapecwf16-23-5261 Miscellaneous Notes* Telephone Encounter - Elie Estrada MA - 02/19/2025 12:47 PM EDT Strange the med got removed. The Lyrica is needing refill. Added. * Telephone Encounter - Deidre Holcomb MA - 02/19/2025 12:20 PM EDT For what medication? * Telephone Encounter - Elie Estrada MA - 02/19/2025 10:26 AM EDT OARRS Reviewed due today documented in this [address]15-2025 Telephone encounter Note* Telephone Encounter - Deidre Holcomb MA - 02/19/2025 12:20 PM EDT For what medication? [address]Rqkkwrjwuc14-88-4307 Telephone encounter Note* Telephone Encounter - Elie Estrada MA - 02/19/2025 10:26 AM EDT OARRS Reviewed due today [facility] [id number] History of Present illness Narrative* Elie Harper [...] mouth in the morning., Disp: , Rfl: Dqqtoyxjsmy-Ipmbydmoi-Qwa C-Mn (Glucosamine 1500 Complex) capsule, as directed [...] p.r.n. Elie Harper DPM documented in this encounterSt. Luke's HospitalPjlixsmhhl03-77-8810 History of Present illness Narrative* Elie Harper DPM - 02/06/2025 2:00 PM EDT Patient: Danyelle [...] Fibromyalgia Hemifacial spasm History of transfusion Hypertension ([facility]) Muscle spasm Osteopenia Peripheral neuropathy Polyneuropathy PVD (peripheral vascular disease) ([facility]) Radiculopathy, lumbosacral region Small fiber neuropathy Spinal stenosis excluding cervical region lumbar region, without neurogenic claudication Spondylolisthesis Trigeminal neuralgia ([facility]) Medications: Current Outpatient Medications: acetaminophen (Tylenol 8 [...] mouth in the morning., Disp: , Rfl: Zqrldtmrzrk-Ttgobfizo-Ceq C-Mn (Glucosamine 1500 Complex) capsule, as directed [...] patient. Elie Harper DPM documented in this encounterSt. Luke's HospitalRqdjbgukfi21-14-4568 Telephone encounter Note* Telephone Encounter - Shelly Ford NP - 01/17/2025 2:45 PM EDT OARRs reviewed. Rx sent for [facility] [id number] Miscellaneous Notes* Telephone Encounter - Shelly Ford NP - 01/17/2025 2:45 PM EDT OARRs reviewed. Rx sent for [facility]. * Telephone Encounter - Elie Estrada MA - 01/17/2025 9:18 AM EDT The pt calls in requesting a refill of pregabalin 12/12/2024 Continue Lyrica 25 mg by mouth twice a day. OARRS reviewed due 01/20/2025 documented in this encounterSt. Luke's HospitalAqpwoaztvj17-73-5376 History of Present illness Narrative* Elie Harper, PK - 01/17/2025 10:00 AM EDT Patient: Danyelle Haskins : 1955 [...] Peripheral neuropathy Polyneuropathy PVD (peripheral vascular disease) ([facility]) Radiculopathy, lumbosacral region Small fiber neuropathy Spinal stenosis excluding cervical region lumbar region, without neurogenic claudication Spondylolisthesis Trigeminal neuralgia ([facility]) Medications: Current Outpatient Medications: acetaminophen (Tylenol 8 [...] mouth in the morning., Disp: , Rfl: Xqjhijfetnq-Ovughvwru-Cte C-Mn (Glucosamine 1500 Complex) capsule, as directed [...] Insecurity: No Food Insecurity (11/29/2023) Received from [facility], [facility] Hunger Vital Sign Worried About Running Out of Food in the Last Year: Never true Ran Out of Food in the Last Year: Never true Transportation Needs: No Transportation Needs (11/29/2023) Received from [facility], [facility] PRAPARE - Transportation Lack of Transportation (Medical): No Lack of Transportation (Non-Medical): No Physical Activity: Not on file Stress: Not on file Social Connections: Not on file Intimate Partner Violence: Not on file Housing Stability: Low Risk (11/29/2023) Received from [facility], [facility] Housing Stability Vital Sign Unable to [...] risks, alternatives, benefits, post op complications and correction expectations were discussed including but not limited to: infection,bone infection,wound dehiscence hardware failure and irritation,wound dehiscence,delay union/mal union/non union of bone. RSDS,neuroma,duty limitations,DVT/PE, HI,nerve damage, scar, loss of sensation, swelling. Pt [...] DPM January 17, 2025 documented in this encounterSt. Luke's HospitalAzskcyijrq21-86-2226 Telephone encounter Note* Telephone Encounter - Elie Estrada MA - 01/17/2025 9:18 AM EDT The pt calls in requesting a refill of pregabalin 12/12/2024 Continue Lyrica 25 mg by mouth twice a day. OARRS reviewed due 01/20/2025 [facility] [id number] History of Present illness Narrative* Elie Harper [...] Fibromyalgia Hemifacial spasm History of transfusion Hypertension ([facility]) Muscle spasm Osteopenia Peripheral neuropathy Polyneuropathy PVD (peripheral vascular disease) ([facility]) Radiculopathy, lumbosacral region Small fiber neuropathy Spinal stenosis excluding cervical region lumbar region, without neurogenic claudication Spondylolisthesis Trigeminal neuralgia ([facility]) Medications: Current Outpatient Medications: acetaminophen (Tylenol 8 [...] mouth in the morning., Disp: , Rfl: Epusdgpjksw-Sjxydppdm-Rvc C-Mn (Glucosamine 1500 Complex) capsule, as directed [...] Insecurity: No Food Insecurity (11/29/2023) Received from [facility], [facility] Hunger Vital Sign Worried About Running Out of Food in the Last Year: Never true Ran Out of Food in the Last Year: Never true Transportation Needs: No Transportation Needs (11/29/2023) Received from [facility], [facility] PRAPARE - Transportation Lack of Transportation (Medical): No Lack of Transportation (Non-Medical): No Physical Activity: Not on file Stress: Not on file Social Connections: Not on file Intimate Partner Violence: Not on file Housing Stability: Low Risk (11/29/2023) Received from [facility], [facility] Housing Stability Vital Sign Unable [...] Patient may continue with conservative treatments including kcsp-gmb-ixlshmk anti- inflammatories and other treatments suggested today. [...] daily Elie Harper DPM documented in this encounterSt. Luke's HospitalHkrkdxcixi60-07-2933 History of Present illness Narrative* Elie Harper [...] Fibromyalgia Hemifacial spasm History of transfusion Hypertension ([facility]) Muscle spasm Osteopenia Peripheral neuropathy Polyneuropathy PVD (peripheral vascular disease) ([facility]) Radiculopathy, lumbosacral region Small fiber neuropathy Spinal stenosis excluding cervical region lumbar region, without neurogenic claudication Spondylolisthesis Trigeminal neuralgia ([facility]) Medications: Current Outpatient Medications: acetaminophen (Tylenol 8 [...] mouth in the morning., Disp: , Rfl: Uaynbmitoay-Aekwqohwi-Osd C-Mn (Glucosamine 1500 Complex) capsule, as directed [...] Insecurity: No Food Insecurity (11/29/2023) Received from [facility], [facility] Hunger Vital Sign Worried About Running Out of Food in the Last Year: Never true Ran Out of Food in the Last Year: Never true Transportation Needs: No Transportation Needs (11/29/2023) Received from [facility], [facility] PRAPARE - Transportation Lack of Transportation (Medical): No Lack of Transportation (Non-Medical): No Physical Activity: Not on file Stress: Not on file Social Connections: Not on file Intimate Partner Violence: Not on file Housing Stability: Low Risk (11/29/2023) Received from [facility], [facility] Housing Stability Vital Sign Unable [...] issues Elie Harper DPM documented in this encounterSt. Luke's HospitalZlhvizvwur19-95-2007 History of Present illness Narrative* Gaby Christianson, SUPERVISOR OF INSTRUCTION - 12/12/2024 11:20 AM EST Images from [...] wrist extensors , wrist flexor , and automated teller manager strength 5/5. LUE strength deltoid , biceps , triceps , wrist extensors , wrist flexor , and automated teller manager strength 5/5. RLE strength iliopsoas, quadriceps, tibialis [...] reflex 0. LLE knee reflex 0. Coordination: Roqxsm-wx-ulcb testing normal. Rapid alternating movements are normal. Gait: Steady. Utilizing walker. Review and summary of old records: EMG of the bilateral upper extremities at [facility] on 10/23/24: Bilateral median neuropathies, at or distal to the wrist, such as in carpal tunnel syndrome, which are moderate on the left and minimal on the right in degree electrically. Bilateral chronic C8 radiculopathies which are mild in degree electrically. MRI of the lumbar spine at the [facility] on 04/01/21: Posterior decompression and transpedicular [...] NP [facility] documented in this encounterSt. Luke's HospitalEegylfjrhq02-99-9234 History of Present illness Narrative* Dania Lanier - 11/28/2024 11:10 AM EST Ortho Nurse [...] days. She has been going to the [facility] and getting in the pool and doing some exercises. She finished formal PT in August and her therapist mentioned to her about maybe getting a script for water therapy. She is taking Tylenol Arthritis and tramadol. She rates her pain on a scale of 1/10. Date: 11/28/2024 11:20 AM Patient: Danyelle Haskins MR#: [id number] : 1955 Age: 69 y.o. Referring Physician: [...] TOTAL Right 04/26/2023 Laterality: Right; Surgeon: New Mcclrue MD; Location: [facility] REVISION ARTHROPLASTY KNEE Left 11/21/2018 Laterality: Left; Surgeon: New Mcclure MD; Location: [facility] EXTRACTION EXTRACAPSULAR CATARACT W/ IMPLANT (ECCE IOL) Bilateral 2018 [facility] TREATMENT OPEN PATELLAR FX W/ INTERNAL [...] October 01, 2020 10:38am 10-01-2020 [facility] ([id number]) Docusate 100 MG capsule Take 1 capsule by mouth 2 times daily. 60 capsule 0 Doxazosin 4 MG tablet Take 1 tablet by mouth daily. Folic acid 1 MG tablet Take 1 tablet by mouth daily. Xhrngwhrbop-Ywyiqfgaf-Qzc C-Mn (Glucosamine 1500 Complex) capsule Take by [...] CATARACT W/ IMPLANT (ECCE IOL) Bilateral 2018 [facility] TREATMENT OPEN PATELLAR FX W/ INTERNAL [...] October 01, 2020 10:38am 10-01-2020 [facility] ([id number]), Disp: , Rfl: Doxazosin 4 MG tablet, Take 1 tablet by mouth daily., Disp: , Rfl: Folic acid 1 MG tablet, Take 1 tablet by mouth daily., Disp: , Rfl: Xgfvaueomfz-Mpnhtirza-Uvu C-Mn (Glucosamine 1500 Complex) capsule, Take by [...] Sulfamethoxazole Weakness Trimethoprim Weakness documented in this [facility]01-09-2025 History of Present illness Narrative* Elie Harper, ENOCHM - 11/15/2024 2:40 PM EST Patient: Danyelle [...] Peripheral neuropathy Polyneuropathy PVD (peripheral vascular disease) ([facility]) Radiculopathy, lumbosacral region Small fiber neuropathy Spinal [...] mouth in the morning., Disp: , Rfl: Ohznfwidgew-Luficnzzx-Hsi C-Mn (Glucosamine 1500 Complex) capsule, as directed [...] Insecurity: No Food Insecurity (11/29/2023) Received from [facility], [facility] Hunger Vital Sign Worried About Running Out of Food in the Last Year: Never true Ran Out of Food in the Last Year: Never true Transportation Needs: No Transportation Needs (11/29/2023) Received from [facility], [facility] PRAPARE - Transportation Lack of Transportation (Medical): No Lack of Transportation (Non-Medical): No Physical Activity: Not on file Stress: Not on file Social Connections: Not on file Intimate Partner Violence: Not on file Housing Stability: Low Risk (11/29/2023) Received from [facility], [facility] Housing Stability Vital Sign Unable [...] Patient may continue with conservative treatments including xgfa-ziz-mcpwiht anti- inflammatories and other treatments suggested today. Patient may want to be s cheduled for surgical intervention in the near future. Discussed left 3rd digit PIPJ arthrodesis with K-wire and postop timeframe in detail me she may consider in the future under local anesthetic Elie Harper DPM documented in this encounterSt. Luke's [id number] History of Present illness Narrative* Magalie Kaufman DO - 10/25/2024 11:30 AM EST Procedure - [...] were sterilized with 70% isopropanol. Lot # [id number] Expiration: 01/2027 Dilution Per 100 units diluted with 1mL of 0.9% Sodium Chloride Procedure Right superior Lateral orbicularis oculi 7.5 units Right lateral orbicularis oculi 7.5 units Right inferior lateral orbicularis oculi 7.5 units Right inferior orbicularis oculi medial 2.5 units Right superior medial orbicularis oculi 2.5 units Right fiber technologist 2.5 units Right masseter 5+10+5 units Right [...] when to seek emergent treatment. Procedure Codes 31593 Chemodenervation of facial muscle J0585 Botulinum toxin a per unit, Units: Follow Up 3 months Botox documented in this encounterSt. Luke's HospitalRlgjbaivxc02-80-0485 Telephone encounter Note* Telephone Encounter - Sheryl Harley MA - 10/24/2024 9:02 AM EST Patient calls stating her lyrica RX was sent in with the incorrect directions. It needs to be 25mg in the morning and 25mg in the evening. RX has been fixed with correct directions. Can you please send. [facility] HospitalVcutzwfbyi19-54-0989 Miscellaneous Notes* Telephone Encounter - Sheryl Harley MA - 10/24/2024 9:02 AM EST Patient calls stating her lyrica RX was sent in with the incorrect directions. It needs to be 25mg in the morning and 25mg in the evening. RX has been fixed with correct directions. Can you please send. documented in this [facility]12-17-2024 History of Present illness Narrative* REGINALD Snider - 10/23/2024 10:30 AM EST Images from the original note were not included. Reason for Appointment: EMG Patient: Danyelle Haskins : 1955 EMG Computer: [employer] Referring Physician: Dr. Shante Montenegro EMG: DAVID is project manager: Kris Arevalo RT(R) Office Location: [place] Reason for EMG: c/o numbness/tingling in left [...] nature of the test. documented in this [facility]12-09-2024 History of Present illness Narrative* Shante Montenegro DO - 10/15/2024 2:00 PM EST Images from [...] Fibromyalgia Hemifacial spasm History of transfusion Hypertension ([facility]) Muscle spasm Osteopenia Peripheral neuropathy Polyneuropathy PVD (peripheral vascular disease) ([facility]) Radiculopathy, lumbosacral region Small fiber neuropathy Spinal stenosis excluding cervical region lumbar region, without neurogenic claudication Spondylolisthesis Trigeminal neuralgia ([facility]) Past Surgical History: Procedure Laterality Date CATARACT [...] Diabetes Sister Loretta Barrera Cataracts Sister Anh Yadira Cancer Mother's Sister Kelsie Denise Cataracts Mother's Sister Berthanubia Walker Stroke Mother's Sister Bertha Denise Cancer Maternal Grandfather Josiah Walker Heart disease [...] wrist extensors , wrist flexor , and automated teller manager strength 5/5. LUE strength deltoid , biceps , triceps , wrist extensors , wrist flexor , and automated teller manager strength 5/5. RLE strength iliopsoas, quadriceps, tibialis [...] reflex 0. LLE Knee reflex 0. Coordination: Zisixv-ph-gxjq testing normal. Rapid alternating movements are normal. Gait: Steady. Utilizing walker. Review and summary of old records: MRI of the lumbar spine at the [facility] on 04/01/21: Posterior decompression and transpedicular [...] new or worsening symptoms. documented in this encounterSt. Luke's HospitalQvwujzdhcq36-78-9005 History of Present illness Narrative* Elie Harper [...] Fibromyalgia Hemifacial spasm History of transfusion Hypertension ([facility]) Muscle spasm Osteopenia Peripheral neuropathy Polyneuropathy PVD (peripheral vascular disease) ([facility]) Radiculopathy, lumbosacral region Small fiber neuropathy Spinal stenosis excluding cervical region lumbar region, without neurogenic claudication Spondylolisthesis Trigeminal neuralgia ([facility]) Medications: Current Outpatient Medications: acetaminophen (Tylenol 8 [...] mouth in the morning., Disp: , Rfl: Gibtxmjsjxk-Fgdwxcnhj-Buq C-Mn (Glucosamine 1500 Complex) capsule, as directed [...] Insecurity: No Food Insecurity (11/29/2023) Received from [facility], [facility] Hunger Vital Sign Worried About Running Out of Food in the Last Year: Never true Ran Out of Food in the Last Year: Never true Transportation Needs: No Transportation Needs (11/29/2023) Received from [facility], [facility] PRAPARE - Transportation Lack of Transportation (Medical): No Lack of Transportation (Non-Medical): No Physical Activity: Not on file Stress: Not on file Social Connections: Not on file Intimate Partner Violence: Not on file Housing Stability: Low Risk (11/29/2023) Received from [facility], [facility] Housing Stability Vital Sign Unable [...] 10 Elie Harper DPM documented in this encounterSt. Luke's HospitalZoxpqmejiv98-46-7316 History of Present illness Narrative* Elie Harper [...] discussion of possible surgical intervention by her lead section supervisor who has since retired. She states diminished [...] mouth in the morning., Disp: , Rfl: Dcfzuwdtzws-Hhoavktlh-Ysc C-Mn (Glucosamine 1500 Complex) capsule, as directed [...] Insecurity: No Food Insecurity (11/29/2023) Received from [facility], [facility] Hunger Vital Sign Worried About Running Out of Food in the Last Year: Never true Ran Out of Food in the Last Year: Never true Transportation Needs: No Transportation Needs (11/29/2023) Received from [facility], [facility] PRAPARE - Transportation Lack of Transportation (Medical): No Lack of Transportation (Non-Medical): No Physical Activity: Not on file Stress: Not on file Social Connections: Not on file Intimate Partner Violence: Not on file Housing Stability: Low Risk (11/29/2023) Received from [facility], [facility] Housing Stability Vital Sign Unable [...] abx. Elie Harper DPM documented in this encounterSt. Luke's HospitalBqtoaghtps24-93-8814 History of Present illness Narrative* Elie Harper DPM - 08/02/2024 10:30 AM EDT Patient: Danyelle Erickson Aries : [...] discussion of possible surgical intervention by her lead section supervisor who has since retired. She states diminished [...] Fibromyalgia Hemifacial spasm History of transfusion Hypertension ([facility]) Muscle spasm Osteopenia Peripheral neuropathy Polyneuropathy PVD (peripheral vascular disease) ([facility]) Radiculopathy, lumbosacral region Small fiber neuropathy Spinal stenosis excluding cervical region lumbar region, without neurogenic claudication Spondylolisthesis Trigeminal neuralgia ([facility]) Medications: Current Outpatient Medications: acetaminophen (Tylenol 8 [...] mouth in the morning., Disp: , Rfl: Ombfnnrpskf-Pyqtpenpw-Sgz C-Mn (Glucosamine 1500 Complex) capsule, as directed [...] Insecurity: No Food Insecurity (11/29/2023) Received from [facility], [facility] Hunger Vital Sign Worried About Running Out of Food in the Last Year: Never true Ran Out of Food in the Last Year: Never true Transportation Needs: No Transportation Needs (11/29/2023) Received from [facility], [facility] PRAPARE - Transportation Lack of Transportation (Medical): No Lack of Transportation (Non-Medical): No Physical Activity: Not on file Stress: Not on file Social Connections: Not on file Intimate Partner Violence: Not on file Housing Stability: Low Risk (11/29/2023) Received from [facility], [facility] Housing Stability Vital Sign Unable [...] antibiotic. Elie Harper DPM documented in this encounterSt. Luke's HospitalRuipiayjiy83-42-9776 NoteRight Eye Quality was good. Scan locations included subfoveal. Progression has been stable. Findings include normal observations. Left Eye Quality was good. Scan locations included subfoveal. Progression has been stable. Findings include normal observations. Notes Good scan with normal appearanceSt. Luke's HospitalZaovxqlqrr67-15-6870 NoteRight Eye Reliability was good. Progression has been stable. Foveal threshold was normal. Findings include normal observations. Left Eye Reliability was good. Progression has been stable. Foveal threshold was normal. Findings include normal observations.St. Luke's HospitalLiyoynabga89-92-7853 History of Present illness Narrative* Ramon Gilmore, - 07/31/2024 9:45 AM EDT Images from [...] above evaluations. This will be adjusted to e1jmyxcx when deemed necessary due to macular risk [...] laser capsulotomy, they are to notify their statistical programmer analyst promptly if they have a significant change in symptoms, such as flashes of light (photopsia), an increase in floaters, loss of visual field or decrease in visual acuity. Blepharitis of upper and lower eyelids of both eyes, unspecified type - Blepharitis, posterior type OU - The patient exhibits inspissated meibomian glands. Warm compresses, lid massage and lid scrubs were recommended. documented in this encounterSt. Luke's HospitalWdammwumsc50-01-0238 Telephone encounter Note* Telephone Encounter - Elie Harper DPM - 07/30/2024 1:[address] [facility] HospitalOxtuykzdol89-19-4723 Miscellaneous Notes* Telephone Encounter - Elie Harper DPM - 07/30/2024 1:12 PM EDT done * Telephone Encounter - Taylor Ferro - 07/30/2024 1:03 PM EDT Pt called stating her ingrown toenail is still infected, asking if she can get another antibiotic? Send to [facility] in [place] please She is scheduled this in [place] documented in this encounterSt. Luke's [id number] Telephone encounter Note* Telephone Encounter - Taylor Ferro - 07/30/2024 1:03 PM EDT Pt called stating her ingrown toenail is still infected, asking if she can get another antibiotic? Send to [facility] in [place] please She is scheduled this in [place] [facility] [id number] History of Present illness Narrative* Magalie Kaufman, DO - 07/26/2024 12:30 PM EDT Procedure [...] were sterilized with 70% isopropanol. Lot # [id number] Expiration:08/2026 Dilution Per 100 units diluted with 1mL of 0.9% Sodium Chloride Procedure Right superior Lateral orbicularis oculi 7.5 units Right lateral orbicularis oculi 7.5 units Right inferior lateral orbicularis oculi 7.5 units Right inferior orbicularis oculi medial 2.5 units Right superior medial orbicularis oculi 2.5 units Right fiber technologist 2.5 units Right masseter 5+10+5 units Right [...] when to seek emergent treatment. Procedure Codes 44149 Chemodenervation of facial muscle J0585 Botulinum toxin a per unit, Units: Follow Up 3 months Botox documented in this encounterSt. Luke's [id number] History of Present illness Narrative* Elie Caraballo Meredith, DPM - 07/18/2024 3:00 PM EDT Patient: [...] discussion of possible surgical intervention by her lead section supervisor who has since retired. She states diminished [...] Peripheral neuropathy Polyneuropathy PVD (peripheral vascular disease) (CMS/[facility]) Radiculopathy, lumbosacral region Small fiber neuropathy Spinal stenosis excluding cervical region lumbar region, without neurogenic claudication Spondylolisthesis Trigeminal neuralgia (CMS/[facility]) Medications: Current Outpatient Medications: acetaminophen (Tylenol 8 [...] mouth in the morning., Disp: , Rfl: Mtqxubhoujm-Debnfrqli-Oqn C-Mn (Glucosamine 1500 Complex) capsule, as directed [...] Insecurity: No Food Insecurity (11/29/2023) Received from [facility], [facility] Hunger Vital Sign Worried About Running Out of Food in the Last Year: Never true Ran Out of Food in the Last Year: Never true Transportation Needs: No Transportation Needs (11/29/2023) Received from [facility], [facility] PRAPARE - Transportation Lack of Transportation (Medical): No Lack of Transportation (Non-Medical): No Physical Activity: Not on file Stress: Not on file Social Connections: Not on file Intimate Partner Violence: Not on file Housing Stability: Low Risk (11/29/2023) Received from [facility], [facility] Housing Stability Vital Sign Unable [...] today Elie Harper DPM documented in this encounterSt. Luke's [id number] History of Present illness Narrative* Gaby Christianson [...] and non weightbearing. She resided at [facility] from 12/02/2023 to 06/06/2024 for postoperative care [...] wrist extensors , wrist flexor , and automated teller manager strength 5/5. LUE strength deltoid , biceps , triceps , wrist extensors , wrist flexor , and automated teller manager strength 5/5. RLE strength iliopsoas, quadriceps, tibialis [...] reflex 0. LLE Knee reflex 0. Coordination: Omhame-aq-uicn testing normal. Rapid alternating movements are normal. Gait: Steady. Utilizing walker. Review and summary of old records: MRI of the lumbar spine at the [facility] on 04/01/21: Posterior decompression and transpedicular [...] NP [facility] documented in this encounterSt. Luke's HospitalFzfahrjfoz25-63-0194 History of Present illness Narrative* Elie Harper DPM - 06/28/2024 2:00 PM EDT Patient: [...] discussion of possible surgical intervention by her lead section supervisor who has since retired. She states diminished [...] region, without neurogenic claudication Spondylolisthesis Trigeminal neuralgia ([facility]/HCC) Medications: Current Outpatient Medications: acetaminophen (Tylenol 8 [...] mouth in the morning., Disp: , Rfl: Gqtwowfnnmc-Nsnqsxnsx-Lrq C-Mn (Glucosamine 1500 Complex) capsule, as directed [...] Insecurity: No Food Insecurity (11/29/2023) Received from [facility], [facility] Hunger Vital Sign Worried About Running Out of Food in the Last Year: Never true Ran Out of Food in the Last Year: Never true Transportation Needs: No Transportation Needs (11/29/2023) Received from [facility], [facility] PRAPARE - Transportation Lack of Transportation (Medical): No Lack of Transportation (Non-Medical): No Physical Activity: Not on file Stress: Not on file Social Connections: Not on file Intimate Partner Violence: Not on file Housing Stability: Low Risk (11/29/2023) Received from [facility], [facility] Housing Stability Vital Sign Unable [...] future Elie Harper DPM documented in this encounterSt. Luke's HospitalYwmgllcddn06-78-1974 History of Present illness Narrative* Ashok Garcia, ZEESHAN - 05/31/2024 9:30 AM EDT Ortho Nurse [...] 05/31/2024 9:39 AM Patient: Danyelle Haskins MR#: [id number] : 1955 Age: 68 y.o. Referring Physician: [...] CATARACT W/ IMPLANT (ECCE IOL) Bilateral 2018 [facility] TREATMENT OPEN PATELLAR FX W/ INTERNAL [...] October 01, 2020 10:38am 10-01-2020 [facility] ([id number]) Docusate 100 MG capsule Take 1 capsule by mouth 2 times daily. 60 capsule 0 Doxazosin 4 MG tablet Take 1 tablet by mouth daily. Folic acid 1 MG tablet Take 1 tablet by mouth daily. Ceococmevbc-Ictucvfkx-Bkh C-Mn (Glucosamine 1500 Complex) capsule Take by [...] October 01, 2020 10:38am 10-01-2020 [facility] ([id number]), Disp: , Rfl: Docusate 100 MG capsule, Take 1 capsule by mouth 2 times daily., Disp: 60 capsule, Rfl: 0 Doxazosin 4 MG tablet, Take 1 tablet by mouth daily., Disp: , Rfl: Folic acid 1 MG tablet, Take 1 tablet by mouth daily., Disp: , Rfl: Mstgllnhgkb-Ptnqgfoat-Afl C-Mn (Glucosamine 1500 Complex) capsule, Take by [...] HPI: Danyelle is an established patient of [facility]. She is here today for a 6 [...] CATARACT W/ IMPLANT (ECCE IOL) Bilateral 2017 [facility] TREATMENT OPEN PATELLAR FX W/ INTERNAL [...] October 01, 2020 10:38am 10-01-2020 [facility] ([id number]), Disp: , Rfl: Docusate 100 MG capsule, Take 1 capsule by mouth 2 times daily., Disp: 60 capsule, Rfl: 0 Doxazosin 4 MG tablet, Take 1 tablet by mouth daily., Disp: , Rfl: Folic acid 1 MG tablet, Take 1 tablet by mouth daily., Disp: , Rfl: Jyhbvdhapem-Umcoxbitg-Agb C-Mn (Glucosamine 1500 Complex) capsule, Take by [...] Sulfamethoxazole Weakness Trimethoprim Weakness documented in this [facility]06-13-2024 History of Present illness Narrative* Dory Coleman - 04/19/2024 10:00 AM EDT Ortho Nurse - Established Patient Intake Room#: 2 Pt is here for B/L knee. Pt is not in any pain. No falls, or injury's. Date: 04/19/2024 10:14 AM Patient: Danyelle Haskins MR#: [id number] : 1955 Age: 68 y.o. Referring Physician: [...] CATARACT W/ IMPLANT (ECCE IOL) Bilateral 2017 [facility] TREATMENT OPEN PATELLAR FX W/ INTERNAL [...] October 01, 2020 10:38am 10-01-2020 [facility] ([id number]) Docusate 100 MG capsule Take 1 capsule by mouth 2 times daily. 60 capsule 0 Doxazosin 4 MG tablet Take 1 tablet by mouth daily. Folic acid 1 MG tablet Take 1 tablet by mouth daily. Feajdgkmzmd-Dlrneyeie-Qvf C-Mn (Glucosamine 1500 Complex) capsule Take by [...] October 01, 2020 10:38am 10-01-2020 [facility] ([id number]), Disp: , Rfl: Docusate 100 MG capsule, Take 1 capsule by mouth 2 times daily., Disp: 60 capsule, Rfl: 0 Doxazosin 4 MG tablet, Take 1 tablet by mouth daily., Disp: , Rfl: Folic acid 1 MG tablet, Take 1 tablet by mouth daily., Disp: , Rfl: Psnavctiqly-Staukuklf-Eti C-Mn (Glucosamine 1500 Complex) capsule, Take by [...] HPI: Danyelle is an established patient of [facility]. She is here today for followup. She [...] CATARACT W/ IMPLANT (ECCE IOL) Bilateral 2018 [facility] TREATMENT OPEN PATELLAR FX W/ INTERNAL [...] October 01, 2020 10:38am 10-01-2020 [facility] ([id number]), Disp: , Rfl: Docusate 100 MG capsule, Take 1 capsule by mouth 2 times daily., Disp: 60 capsule, Rfl: 0 Doxazosin 4 MG tablet, Take 1 tablet by mouth daily., Disp: , Rfl: Folic acid 1 MG tablet, Take 1 tablet by mouth daily., Disp: , Rfl: Tjylppmdpuj-Tacxrwycm-Shv C-Mn (Glucosamine 1500 Complex) capsule, Take by [...] Sulfamethoxazole Weakness Trimethoprim Weakness documented in this encounterUc Health05-16-2024 History of Present illness Narrative* Dania Lanier - 03/22/2024 3:30 PM EDT Ortho Nurse [...] is helping. Date: 03/22/2024 3:49 PM Patient: Daneylle Haskins MR#: [id number] : 1955 Age: 68 y.o. Referring Physician: [...] CATARACT W/ IMPLANT (ECCE IOL) Bilateral 2018 [facility] TREATMENT OPEN PATELLAR FX W/ INTERNAL [...] October 01, 2020 10:38am 10-01-2020 [facility] ([id number]) Docusate 100 MG capsule Take 1 capsule by mouth 2 times daily. 60 capsule 0 Doxazosin 4 MG tablet Take 1 tablet by mouth daily. Folic acid 1 MG tablet Take 1 tablet by mouth daily. Apzynkessyk-Wqlylznza-Enc C-Mn (Glucosamine 1500 Complex) capsule Take by [...] HPI: Danyelle is an established patient of [facility]. She is here today for followup. She [...] have reviewed the findings of the clinical instructional support assistant and agree with their assessment. [...] 03/22/2024 3:49 PM Patient: Danyelle Haskins MR#: [id number] : 1955 Age: 68 y.o. Referring Physician: [...] CATARACT W/ IMPLANT (ECCE IOL) Bilateral 2018 [facility] TREATMENT OPEN PATELLAR FX W/ INTERNAL [...] October 01, 2020 10:38am 10-01-2020 [facility] ([id number]) Docusate 100 MG capsule Take 1 capsule by mouth 2 times daily. 60 capsule 0 Doxazosin 4 MG tablet Take 1 tablet by mouth daily. Folic acid 1 MG tablet Take 1 tablet by mouth daily. Rfbsiemlqpd-Jrccqktmw-Bef C-Mn (Glucosamine 1500 Complex) capsule Take by [...] bactrim [sulfamethoxazole-trimethoprim], and levofloxacin. documented in this encounterUc Health04-18-2024 History of Present illness Narrative* Allison Airza - 02/23/2024 11:00 AM EDT Ortho Nurse - Established Patient Intake Room#: 4 Date: 02/23/2024 11:05 AM Patient: Danyelle Haskins MR#: [id number] : 1955 Age: 68 y.o. 4M L [...] EXTRACAPSULAR CATARACT W/ IMPLANT (ECCE IOL) Bilateral [address] [place] [address] TREATMENT OPEN PATELLAR FX W/ INTERNAL FIXATION [...] October 01, 2020 10:38am 10-01-2020 [facility] ([id number]) Docusate 100 MG capsule Take 1 capsule by mouth 2 times daily. 60 capsule 0 Doxazosin 4 MG tablet Take 1 tablet by mouth daily. Folic acid 1 MG tablet Take 1 tablet by mouth daily. Eekeewlibjg-Nmnxohtfk-Uiw C-Mn (Glucosamine 1500 Complex) capsule Take by [...] October 01, 2020 10:38am 10-01-2020 [facility] ([id number]), Disp: , Rfl: Docusate 100 MG capsule, Take 1 capsule by mouth 2 times daily., Disp: 60 capsule, Rfl: 0 Doxazosin 4 MG tablet, Take 1 tablet by mouth daily., Disp: , Rfl: Folic acid 1 MG tablet, Take 1 tablet by mouth daily., Disp: , Rfl: Bqflujatulf-Vogbggdys-Nvk C-Mn (Glucosamine 1500 Complex) capsule, Take by [...] bactrim [sulfamethoxazole-trimethoprim], and levofloxacin. * Rajinder Green APRN-SET UP MECHANIC - 02/23/2024 11:00 AM EDT SUBJECTIVE: Danyelle is an established patient of [facility]. She is here today for followup. She [...] up in 4 weeks, sooner as needed. ([id number]) I have reviewed the findings of the clinical instructional support assistant and agree with their assessment. Rajinder Green APRN-MARTY Ortho Nurse - Established Patient Intake Room#: 4 Date: 02/23/2024 11:05 AM Patient: Danyelle Haskins MR#: [id number] : 1955 Age: 68 y.o. 4M L [...] CATARACT W/ IMPLANT (ECCE IOL) Bilateral 2018 [facility] TREATMENT OPEN PATELLAR FX W/ INTERNAL [...] October 01, 2020 10:38am 10-01-2020 [facility] ([id number]) Docusate 100 MG capsule Take 1 capsule by mouth 2 times daily. 60 capsule 0 Doxazosin 4 MG tablet Take 1 tablet by mouth daily. Folic acid 1 MG tablet Take 1 tablet by mouth daily. Kzartanglxb-Ewevvdgnk-Izk C-Mn (Glucosamine 1500 Complex) capsule Take by [...] October 01, 2020 10:38am 10-01-2020 [facility] ([id number]), Disp: , Rfl: Docusate 100 MG capsule, Take 1 capsule by mouth 2 times daily., Disp: 60 capsule, Rfl: 0 Doxazosin 4 MG tablet, Take 1 tablet by mouth daily., Disp: , Rfl: Folic acid 1 MG tablet, Take 1 tablet by mouth daily., Disp: , Rfl: Dbmpfxygxgj-Pdaqxkrho-Fgd C-Mn (Glucosamine 1500 Complex) capsule, Take by [...] bactrim [sulfamethoxazole-trimethoprim], and levofloxacin. documented in this encounterUc Health03-07-2024 History of Present illness Narrative* Denise Michelle - 01/12/2024 1:00 PM EST Ortho Nurse - Established Patient Intake Room#: 1 ----follow-up from call from [facility] living on 12.30.23 that she fractured her patella. [...] 01/12/2024 1:03 PM Patient: Danyelle Haskins MR#: [id number] : 1955 Age: 68 y.o. Referring Physician: [...] CATARACT W/ IMPLANT (ECCE IOL) Bilateral 2017 [facility] TREATMENT OPEN PATELLAR FX W/ INTERNAL [...] October 01, 2020 10:38am 10-01-2020 [facility] ([id number]) Docusate 100 MG capsule Take 1 capsule by mouth 2 times daily. 60 capsule 0 Doxazosin 4 MG tablet Take 1 tablet by mouth daily. Folic acid 1 MG tablet Take 1 tablet by mouth daily. Sqtwdprscve-Vtbwubove-Bwl C-Mn (Glucosamine 1500 Complex) capsule Take by [...] 04/26/23. My office received a call from [facility] on 12/30/23 stating patient suffered [...] ion to right knee with luz marina viera [...] have reviewed the findings of the clinical instructional support assistant and agree with their assessment. Ortho Nurse - Established Patient Intake Room#: 1 ----follow-up from call from senior living on 12.30.23 that she fractured her patella. [...] 01/12/2024 1:03 PM Patient: Danyelle Haskins MR#: [id number] : 1955 Age: 68 y.o. Referring Physician: [...] CATARACT W/ IMPLANT (ECCE IOL) Bilateral 2017 [facility] TREATMENT OPEN PATELLAR FX W/ INTERNAL [...] October 01, 2020 10:38am 10-01-2020 [facility] ([id number]) Docusate 100 MG capsule Take 1 capsule by mouth 2 times daily. 60 capsule 0 Doxazosin 4 MG tablet Take 1 tablet by mouth daily. Folic acid 1 MG tablet Take 1 tablet by mouth daily. Losgzgotrnk-Ltakcbixb-Tlr C-Mn (Glucosamine 1500 Complex) capsule Take by [...] bactrim [sulfamethoxazole-trimethoprim], and levofloxacin. documented in this encounterUc Health12-28-2023 History of Present illness Narrative* Shayla Garza [...] TRANSFUSION/REACTION Yes, no adverse reaction. CULTURAL OR SPIRITISM BELIEFS THAT WILL AFFECT CARE no DIETARY RESTRICTIONS no CONCERNS FOR PERSONAL SAFETY no Have you been diagnosed with a concussion in the past 6 months? no Have you tested positive for COVID 19? (if pt does breathing is not back to baseline please order CXR) No Have you had your COVID vaccination? no ADVANCE DIRECTIVES Yes, on file with [email or web address] IF PATIENT HAS NOT BEEN DIAGNOSED WITH [...] 11/03/2023 1010 blood pressure elevated today at [facility]. Reports have white coat syndrome. It's neverhigh like that when I check it at home. Denies headache or complaints. Reports that she will checkthe BP on arrival home. Encouraged to discuss with pcp if remains elevated, voiced understanding. Discharged ambulatory, gait steady with walker. documented in this encounterUc Health12-28-2023 Instructions* Patient Instructions* Everton Ball RN - 11/03/2023 10:[address] Mcclure's office will call you for your arrival time, 1-2 business days before your scheduled surgery. Please review your surgery checklist and bring your guide or booklet the day of surgery. Pre-Admission Testing Dept. [phone] Call if you have any changes in [...] for the hospital. DIRECTIONS: [facility] [address] Enter through the front entrance and sign in at the Registration Desk at the [facility]. Thank you for allowing us the [...] Yellow - take the day of surgery [place] - hold according to the doctor's instructions [...] October 01, 2020 10:38am 10-01-2020 [facility] ([id number]) STOP 7 DAYS BEFORE YOUR SURGERY LAST DOSE: DATE TIME Doxazosin 4 MG tablet 4 mg, Oral, DAILY STOP TAKING 24 hours BEFORE YOUR SURGERY Last Dose: Date Time Folic acid 1 MG tablet 1,000 mcg, Oral, DAILY CONTINUE, but DO NOT take the morning of surgery. Last Dose: Date Time Nejzbmsljfg-Blrvnxwbr-Fpu C-Mn (Glucosamine 1500 Complex) capsule Oral, DAILY [...] Last Dose: Date Time documented in this [facility]12[facility]28-2023 Miscellaneous Notes* Addendum Note - Everton Ball RN - 11/03/2023 10:00 AM ESTAddended by: EVERTON BALL on: 10/27/2023 10:19 AM Modules accepted: Orders * Addendum Note - Everton Ball RN - 11/03/2023 10:00 AM ESTAddended by: EVERTON BALL on: 11/01/2023 01:36 PM Modules accepted: Orders documented in this encounterUc Health12-28-2023 Note* Addendum Note - Everton Ball RN - 11/03/2023 10:00 AM ESTAddended by: EVERTON BALL on: 10/27/2023 10:19 AM Modules accepted: Orders [facility]12-28-[facility] Note* Addendum Note - Everton Ball RN - 11/03/2023 10:00 AM ESTAddended by: EVERTON BALL on: 11/01/2023 01:36 PM Modules accepted: Orders [facility]10-26-[facility] History of Present illness Narrative* Denise Michelle [...] 09/01/2023 1:06 PM Patient: Danyelle Haskins MR#: [id number] : 1955 Age: 68 y.o. Referring Physician: [...] CATARACT W/ IMPLANT (ECCE IOL) Bilateral 2018 [facility] TREATMENT OPEN PATELLAR FX W/ INTERNAL [...] October 01, 2020 10:38am 10-01-2020 [facility] ([id number]) Doxazosin 4 MG tablet Take 1 tablet [...] today to further discuss surgicalinterventions for optimal correction management. Patient is also here today for [...] stage. She understands she is at the 50%stra of total recovery. We also discussed the [...] a left total knee revision for optimal correction management. We have discussed in great detail [...] nasal MRSA screening, scheduling an appointment for [facility] and the potential surgical date, and reviewing and signing the consentforms. I have reviewed the findings of the clinical instructional support assistant and agree with their assessment. Ortho Nurse - Established Patient Intake Room#: 1 ----- 4 month f\u R TKR and is doing great. Also concerned about left knee and that it keeps slipping out of place. No pain with the knee just instability and would like it looked at again. Date: 09/01/2023 1:06 PM Patient: Danyelle Haskins MR#: [id number] : 1955 Age: 68 y.o. Referring Physician: [...] CATARACT W/ IMPLANT (ECCE IOL) Bilateral 2017 [facility] TREATMENT OPEN PATELLAR FX W/ INTERNAL [...] October 01, 2020 10:38am 10-01-2020 [facility] ([id number]) Doxazosin 4 MG tablet Take 1 tablet [...] bactrim [sulfamethoxazole-trimethoprim], and levofloxacin. documented in this encounterUc Health07-13-2023 History of Present illness Narrative* Marcie Lantigua LPN - 05/19/2023 2:40 PM EDT Ortho Nurse - Established Patient Intake Room#: 5 Date: 05/19/2023 2:43 PM Patient: Danyelle Haskins MR#: [id number] : 1955 Age: 67 y.o. 3 wks [...] CATARACT W/ IMPLANT (ECCE IOL) Bilateral 2018 [facility] TREATMENT OPEN PATELLAR FX W/ INTERNAL [...] October 01, 2020 10:38am 10-01-2020 [facility] ([id number]) Docusate 100 MG capsule Take 1 capsule [...] October 01, 2020 10:38am 10-01-2020 [facility] ([id number]), Disp: , Rfl: Docusate 100 MG capsule, [...] gabapentin, oxcarbazepine, bactrim [sulfamethoxazole-trimethoprim], and levofloxacin. * EFREN Logan - 05/19/2023 2:40 PM EDT HPI: Danyelle [...] mesh. All pertinent portions of the clinical instructional support assistant documentation was reviewed and agree. EFREN Logan Ortho Nurse - Established Patient Intake Room#: 5 Date: 05/19/2023 2:43 PM Patient: Danyelle Haskins MR#: [id number] : 1955 Age: 67 y.o. 3 wks [...] CATARACT W/ IMPLANT (ECCE IOL) Bilateral 2018 [facility] TREATMENT OPEN PATELLAR FX W/ INTERNAL [...] October 01, 2020 10:38am 10-01-2020 [facility] ([id number]) Docusate 100 MG capsule Take 1 capsule [...] October 01, 2020 10:38am 10-01-2020 [facility] ([id number]), Disp: , Rfl: Docusate 100 MG capsule, [...] bactrim [sulfamethoxazole-trimethoprim], and levofloxacin. documented in this [facility]10-25-2021 Evaluation note* Encounter Date Diagnosis Assessment Notes Treatment Notes Treatment Clinical Notes Aug, Lumbar spondylosis (ICD-10 - M47 .816) Aug,pinal stenosis of lumbar region without neurogenic claudication [...] management and focal injections would be appropriate. [facility] Other 05-10-2021 Note [id number]:[address] [place] [address] 03-12-2021 NoteCystoscopy with Urethral Dilation ? Voiding [...] if you have a fever over 100 degreesAtrium Health [facility]05-05-2021 History of Present illness Narrative* New [...] have reviewed the findings of the clinical instructional support assistant and agree with their assessment. Ortho Nurse Established Patient Intake Room#: 3 F/U from PT, seen 11-19-20, left knee TKA 11-21-18 with extensor mechanism repair, states her pain is a 2 and she is doing much better Date: 03/11/2021 1:59 PM Patient: Danyelle Haskins MR#: [id number] : 1955 Age: 65 y.o. Referring Physician: [...] CATARACT W/ IMPLANT (ECCE IOL) Bilateral 2018 [facility] TREATMENT OPEN PATELLAR FX W/ INTERNAL [...] mouth 3 times daily as needed. Biotin 57908 MCG Tab take 2 tablets by mouth 2 times daily.. Calcium Carb-Cholecalciferol (CALCIUM 600 + D) 600-200 MG-UNIT Tab tablet Take 2.5 tablets by mouthDaily (with lunch). Diclofenac Sodium 1 % Gel gel Diclofenac Diclofenac Sodium Active 4 GM Topical Four times daily October 01, 2020 10:38am 10-01-2020 [facility] ([id number]) ferrous sulfate 325 (65 Fe) MG Tab [...] as needed. , Disp: , Rfl: Biotin 33316 MCG Tab, take 2 tablets by mouth 2 times daily.. , Disp: , Rfl: Calcium Carb-Cholecalciferol (CALCIUM 600 + D) 600-200 MG-UNIT Tab tablet, Take 2.5 tablets by mouth Daily (with lunch). , Disp: , Rfl: Diclofenac Sodium 1 % Gel gel, Diclofenac Diclofenac Sodium Active 4 GM Topical Four times daily October 01, 2020 10:38am 10-01-2020 [facility] ([id number]), Disp: , Rfl: ferrous sulfate 325 (65 [...] 03/11/2021 1:59 PM Patient: Danyelle Haskins MR#: [id number] : 1955 Age: 65 y.o. Referring Physician: [...] CATARACT W/ IMPLANT (ECCE IOL) Bilateral 2018 [facility] TREATMENT OPEN PATELLAR FX W/ INTERNAL [...] mouth 3 times daily as needed. Biotin 51959 MCG Tab take 2 tablets by mouth 2 times daily.. Calcium Carb-Cholecalciferol (CALCIUM 600 + D) 600-200 MG-UNIT Tab tablet Take 2.5 tablets by mouthDaily (with lunch). Diclofenac Sodium 1 % Gel gel Diclofenac Diclofenac Sodium Active 4 GM Topical Four times daily October 01, 2020 10:38am 10-01-2020 [facility] ([id number]) ferrous sulfate 325 (65 Fe) MG Tab [...] as needed. , Disp: , Rfl: Biotin 49473 MCG Tab, take 2 tablets by mouth 2 times daily.. , Disp: , Rfl: Calcium Carb-Cholecalciferol (CALCIUM 600 + D) 600-200 MG-UNIT Tab tablet, Take 2.5 tablets by mouth Daily (with lunch). , Disp: , Rfl: Diclofenac Sodium 1 % Gel gel, Diclofenac Diclofenac Sodium Active 4 GM Topical Four times daily October 01, 2020 10:38am 10-01-2020 [facility] ([id number]), Disp: , Rfl: ferrous sulfate 325 (65 [...] oxcarbazepine; and bactrim [sulfamethoxazole-trimethoprim]. [facility]* Diagnosis Left knee pain, unspecified chronicity- Primary Right knee pain, unspecified chronicity [facility]* Diagnosis Hx of total knee arthroplasty, right- Primary [facility] noteNo assessment information availableMer[facility] Work Phone: Evaluation note* Diagnosis Hx of total knee arthroplasty, right- Primary Hx of total knee arthroplasty, left [facility]* Diagnosis Preop testing- Primary Preoperative examination, unspecified Abnormal finding of blood chemistry, unspecified Abnormal coagulation profile Failed total left knee replacement, initial encounter [facility] this [facility]* Diagnosis Pain in right knee Pain in joint, lower leg [facility]* Diagnosis Right knee pain, unspecified chronicity- Primary [facility]* Diagnosis Hx of total knee arthroplasty, left- Primary [facility]* Diagnosis Pain in both knees, unspecified chronicity- Primary [facility]* Diagnosis Pain in both knees, unspecified chronicity- Primary [facility]* Diagnosis Pain in both knees, unspecified chronicity- Primary [facility]* Diagnosis Abscess of toe, right- Primary Acquired deformity of left toe [facility] Diagnosis Pain due to onychomycosis of toenails of both feet- Primary Acquired deformity of left toe documented in this encounter [facility]Evaluation [facility]* Diagnosis Polyneuropathy- Primary Unspecified hereditary and idiopathic peripheral neuropathy Spinal stenosis of lumbar region, unspecified whether neurogenic claudication present Degenerative disc disease, lumbar documented in this encounter [facility] HealthcareEvaluation note* Diagnosis Spinal stenosis of lumbar region, unspecified whether neurogenic claudication present- Primary Degenerative disc disease, lumbar Facet arthritis of lumbar region Blepharospasm Polyneuropathy Unspecified hereditary and idiopathic peripheral neuropathy Paresthesias Disturbance of skin sensation documented in this encounter [facility] HealthcareEvaluation note* Diagnosis Paresthesias- Primary Disturbance of skin sensation Blepharospasm Spinal stenosis of lumbar region, unspecified whether neurogenic claudication present documented in this encounter [facility]Evaluation note* Diagnosis Paresthesias Disturbance of skin sensation Spinal stenosis of lumbar region, unspecified whether neurogenic claudication present documented in this encounter [facility]* Diagnosis Carpal tunnel syndrome on both sides- Primary Carpal tunnel syndrome Paresthesias Disturbance of skin sensation documented in this encounter [facility]Evaluation note* Diagnosis Acquired deformity of left toe- Primary Onychomycosis Dermatophytosis of nail Toe pain, bilateral documented in this encounter [facility]Evaluation note* Diagnosis Spinal stenosis of lumbar region, unspecified whether neurogenic claudication present- Primary Paresthesias Disturbance of skin sensation documented in this encounter [facility]Evaluation note* Diagnosis Onychocryptosis- Primary Ingrowing nail Toe pain, right Pain in soft tissues of limb Abscess of toe, right documented in this encounter [facility]Evaluation note* Diagnosis 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 documented in this encounter [facility] HealthcareEvaluation note* Diagnosis Abscess of toe, right Onychocryptosis- Primary Ingrowing nail Toe pain, right Pain in soft tissues of limb Abscess of toe, right Acquired deformity of left toe documented in this encounter [facility]Evaluation note* Diagnosis Long-term use of hydroxychloroquine- [...] of left toe documented in this encounter [facility]Evaluation note* Diagnosis Onychocryptosis- Primary Ingrowing nail Toe pain, right Pain in soft tissues of limb Abscess of toe, right Acquired deformity of left toe documented in this encounter [facility] HealthcareEvaluation note* Diagnosis Acquired deformity of left toe- Primary Pain due to onychomycosis of toenails of both feet documented in this encounter [facility] HealthcareEvaluation note* Diagnosis Pain in left [...] [facility] arthroplasty, right [facility] Diagnosis Spinal stenosis of lumbar region, unspecified whether neurogenic claudication present- Primary Degeneration of intervertebral disc of lumbar region with discogenic back pain Facet arthritis of lumbar region Blepharospasm Polyneuropathy Unspecified hereditary and idiopathic peripheral neuropathy Carpal tunnel syndrome on both sides Carpal tunnel syndrome documented in this encounter [facility]Evaluation note* Diagnosis Cellulitis of left foot- Primary Acquired deformity of left toe documented in this encounter [facility]Evaluation note* Diagnosis Cellulitis of left foot- Primary Acquired deformity of left toe Foot ulcer, left, with fat layer exposed (CMS/HCC) Other polyneuropathy documented in this encounter [facility] HealthcareEvaluation note* Diagnosis Cellulitis of left foot- Primary Acquired deformity of left toe Foot ulcer, left, with fat layer exposed (CMS/HCC) Other polyneuropathy documented in this encounter [facility] HealthcareEvaluation note* Diagnosis Paresthesias Disturbance of skin sensation Spinal stenosis of lumbar region, unspecified whether neurogenic claudication present documented in this encounter [facility] HealthcareEvaluation note* Diagnosis Acquired deformity of left toe- Primary Other polyneuropathy documented in this encounter [facility] HealthcareEvaluation note* Diagnosis Acquired deformity of left toe- Primary Other polyneuropathy documented in this encounter [facility] HealthcareEvaluation note* Diagnosis Paresthesias Disturbance of skin sensation Spinal stenosis of lumbar region, unspecified whether neurogenic claudication present documented in this encounter [facility] HealthcareEvaluation note* Diagnosis Pain due to onychomycosis of toenails of both feet- Primary documented in this encounter [facility] HealthcareEvaluation note* Diagnosis Onset Date Resolution Status Admit Date Blepharospasm chronicJune 2024 9:33amCarpal tunnel syndrome, bilateralchronicJune 2024 9:33amDDD (degenerative disc disease), lumbarchronicJune 2024 9:33am Facet arthritis of lumbar regionchronicJune 2024 9:33amPolyneuropathy chronicJune 2024 9:33amSpinal stenosis of lumbar regionchronicJune 2024 9:33am [facility] Work Phone: Evaluation note* Diagnosis Intermediate stage nonexudative age-related macular degeneration of both eyes- Primary Long-term use of hydroxychloroquine documented in this encounter [facility] HealthcareEvaluation note* Diagnosis Pain due to onychomycosis of toenails of both feet- Primary documented in this encounter [facility] HealthcareHistory general Narrative - Reported* Type Description Date Medical History connective tissue disease Medical HistoryArthritisMedical Historyspinal compressionSurgical Historyback surgerySurgical Historyganglion cystSurgical HistorytonsillectomySurgical HistoryhysterectomySurgical Historytendon repairSurgical Historywrist surgery Surgical Historycataracts, bilaterallySurgical HistoryAbdominal Ablation Hospitalization Historysee surgical [facility] [employer] Other reason for referral (narrative)* Consultation (Routine) - Patient to ArrangeSpecialtyDiagnoses / ProceduresReferred By ContactReferred To ContactPhysical Therapy Diagnoses Pain in both knees, unspecified chronicity New Mcclure MD [address] [place] [address] Referral IDStatusReasonStart DateExpiration DateVisits RequestedVisits [id number] to Arrange/ Scheduling Instructions . [facility] SystemReason for referral (narrative)No reason for referral information availableDiley [facility] Medical Center Work Phone: Summary Purpose Family History Relationship Condition Age at Onset Recorded Date/T kayode Not Specified Diabetes mellitus Unknown ArthritisUnknownFamily history of cataractsUnknownHypertensionUnknownfather LiposarcomaUnknownsisterMalignant neoplasm of thyroid glandUnknownfamily member Pituitary neoplasmUnknown Relationship Condition Age at Onset Recorded Date/T kayode Not Specified Diabetes mellitus Unknown ArthritisUnknownFamily history of cataractsUnknownHypertensionUnknownfather LiposarcomaUnknownsisterMalignant neoplasm of thyroid glandUnknownfamily member Pituitary neoplasmUnknownbrotherDeceasedUnknownfatherDeceasedUnknown Advance Directives TypeDate RecordedPatient RepresentativeExplanationAdvance Directives/Living Will 11/21/2018 8:22 AMAdvance Directives/Living Will11/21/2018 8:26 AMCode StatusDate ActivatedDate InactivatedCommentsFull Code11/21/2018 2:46 PMFull Code07/18/2017 4:04 PM07/21/2017 7:25 PMTypeDate RecordedPatient RepresentativeExplanation Advance Directives/Living Will11/21/2018 8:22 AMAdvance Directives/Living Will 11/21/2018 8:26 AMCode StatusDate ActivatedDate InactivatedCommentsFull Code 11/21/2018 2:46 PMFull Code07/18/2017 4:04 07/21/2017 7:25 PMCode StatusDate ActivatedDate InactivatedCommentsFull Code11/21/2018 2:46 PMCode StatusDate ActivatedDate InactivatedCommentsFull Code07/18/2017 4:04 PM07/21/2017 7:25 PMCode StatusDate ActivatedDate InactivatedCommentsFull Code04/26/2023 2:32 PMCode StatusDate ActivatedDate InactivatedCommentsFull Code11/21/2018 2:46 PM04/26/2023 2:32 PMFull Code07/18/2017 4:04 07/21/2017 7:25 PMCode StatusDate ActivatedDate InactivatedCommentsFull Code11/29/2023 5:14 PMCode StatusDate ActivatedDate InactivatedCommentsFull Code04/26/2023 2:32 PM11/29/2023 5:14 PMFull Code11/21/2018 2:46 PM04/26/2023 2:32 PMFull Code07/18/2017 4:04 PM07/21/2017 7:25 PMDate ActivatedDate InactivatedComments11/29/2023 5:14 PMDate ActivatedDate Inactivated Comments04/26/2023 2:32 PM11/29/2023 5:14 PMDate ActivatedDate InactivatedComments 11/21/2018 2:46 PM04/26/2023 2:32 PMDate ActivatedDate InactivatedComments 07/18/2017 4:04 PM07/21/2017 7:25 PMDate ActivatedDate InactivatedComments 11/29/2023 5:14 PMDate ActivatedDate InactivatedComments04/26/2023 2:32 PM 11/29/2023 5:14 PMDate ActivatedDate InactivatedComments11/21/2018 2:46 PM 04/26/2023 2:32 PMDate ActivatedDate InactivatedComments07/18/2017 4:04 PM 07/21/2017 7:25 PM Advance Directive Response Recorded Date/ Time Advance Directives No September 12:45pm Reason for Referral StatusReasonSpecialtyDiagnoses / ProceduresReferred By ContactReferred To ContactNew Request Diagnoses Pre-op exam Procedures ECG New Mcclure MD [address] [place] [address] StatusReasonSpecialtyDiagnoses / ProceduresReferred By ContactReferred To ContactNew Request Procedures ACTIVITY TOLERATED Rajinder Green APRN-CNP [address] [place] [address] StatusReasonSpecialtyDiagnoses / ProceduresReferred By ContactReferred To Contact Rajinder Green APRN-CNP [address] [place] [address] StatusReasonSpecialtyDiagnoses / ProceduresReferred By ContactReferred To ContactNew Request Diagnoses Hx of total knee arthroplasty, left Procedures XR KNEE LEFT 2 VIEWS XR KNEE LEFT 3 VIEWS Rajinder Green, LAND APPRAISER-SET UP MECHANIC [address] [place], [place] [id number] StatusReasonSpecialtyDiagnoses / ProceduresReferred By ContactReferred To ContactNew RequestPhysical Therapy Diagnoses History of total knee arthroplasty, left Right hip pain New Mcclure MD [address] [place], [place] [phone] Scheduling Instructions . StatusReasonSpecialtyDiagnoses / ProceduresReferred By ContactReferred To ContactSchedule Outgoing - Transfer of CarePhysical Therapy Diagnoses History of total knee arthroplasty, left New Mcclure MD [address] [place], [place] [phone] StatusReasonSpecialtyDiagnoses / ProceduresReferred By ContactReferred To ContactNew Request Diagnoses Right hip pain Procedures XR HIP WITH PELVIS RIGHT New Mcclure MD [address] [place], [place] [phone] StatusReasonSpecialtyDiagnoses / ProceduresReferred By ContactReferred To ContactNew RequestSports Ortho and Primary Care Sports Diagnoses Right hip pain New Mcclure MD [address] [place], [place] [phone] StatusReasonSpecialtyDiagnoses / ProceduresReferred By ContactReferred To ContactNew Request Diagnoses Right knee pain, unspecified chronicity Procedures LARGE JOINT INJECTION: R knee New Mcclure MD [address] [place], [place] [phone] StatusReasonSpecialtyDiagnoses / ProceduresReferred By ContactReferred To ContactNew Request Diagnoses Left knee pain, unspecified chronicity Procedures XR KNEE LEFT 2 VIEWS XR KNEE LEFT 3 VIEWS New Mcclure MD [address] [place], [place] [phone] StatusReasonSpecialtyDiagnoses / ProceduresReferred By ContactReferred To ContactPending Review Diagnoses History of total knee arthroplasty, left Procedures XR KNEE LEFT 3 VIEWS New Mcclure MD [address] [place], [place] [phone] StatusReasonSpecialtyDiagnoses / ProceduresReferred By ContactReferred To ContactPatient to ArrangePhysical Therapy Diagnoses Pain in prosthetic joint, initial encounter New Mcclure MD [address] [place], [place] [phone] StatusReasonSpecialtyDiagnoses / ProceduresReferred By ContactReferred To ContactNew Request Diagnoses Hx of total knee arthroplasty, left Procedures XR KNEE LEFT 3 VIEWS New Mcclure MD [address] [place], [place] [phone] StatusReasonSpecialtyDiagnoses / ProceduresReferred By ContactReferred To ContactPatient to ArrangePhysical Therapy Diagnoses History of total knee arthroplasty, left New Mcclure MD [address] [place], [place] [phone] SpecialtyDiagnoses / ProceduresReferred By ContactReferred To Contact Diagnoses Hx of total knee arthroplasty, right Procedures XR KNEE RIGHT 3 VIEWS Rajinder Green, LAND APPRAISER-SET UP MECHANIC [address] [place], [place] [phone] Referral IDStatusReasonStart DateExpiration DateVisits RequestedVisits [id number] Request/[id number] / Procedures Referred By ContactReferred To Contact Diagnoses Hx of total knee arthroplasty, right Procedures XR BONE LENGTH STUDY New Mcclure MD [address] [place], [place] [phone] Referral IDStatusReasonStart DateExpiration DateVisits RequestedVisits [id number] Itoavoe73/[id number] / ProceduresReferred By ContactReferred To Contact Diagnoses Hx of total knee arthroplasty, right Procedures XR KNEE RIGHT 3 VIEWS New Mcclure MD [address] [place], [place] [phone] Referral IDStatusReasonStart DateExpiration DateVisits RequestedVisits [id number] [id number] / ProceduresReferred By ContactReferred To Contact Diagnoses Hx of total knee arthroplasty, left Procedures XR KNEE LEFT 3 VIEWS New Mcclure MD [address] [place], [place] [phone] Referral IDStatusReasonStart DateExpiration DateVisits RequestedVisits [id number] Aobjjlf05/[id number] / ProceduresReferred By ContactReferred To Contact Diagnoses Preop testing Procedures PREPARE TO TRANSFUSE RED BLOOD CELLS New Mcclure MD [address] [place], [place] [phone] Referral IDStatusReasonStart DateExpiration DateVisits RequestedVisits [id number] Frkxvvi01/[id number] / ProceduresReferred By ContactReferred To Contact Diagnoses Preop testing Procedures ECG New Mcclure MD [address] [place], [place] [phone] Referral IDStatusReasonStart DateExpiration DateVisits RequestedVisits [id number] Gqczigj81/[id number] / ProceduresReferred By ContactReferred To Contact Diagnoses Right knee pain, unspecified chronicity Procedures XR KNEE RIGHT 3 VIEWS New Mcclure MD [address] [place], [place] [phone] Referral IDStatusReasonStart DateExpiration DateVisits RequestedVisits [id number] Request/[id number] / Procedures Referred By ContactReferred To Contact Diagnoses Hx of total knee arthroplasty, left Procedures XR KNEE LEFT 1-2 VIEWS XR KNEE LEFT 3 VIEWS Rajinder Green, LAND AP[employer]AISER-[employer] UP MECHANIC [address] [place] [address] Referral IDStatusReasonStart DateExpiration DateVisits RequestedVisits [id number] Request/[id number] / Procedures Referred By ContactReferred To Contact Diagnoses Hx of total knee arthroplasty, left Procedures XR BONE LENGTH STUDY Rajinder Green, LAND APPRAISER-SET UP MECHANIC [address] [phone] Referral IDStatusReasonStart DateExpiration DateVisits RequestedVisits [id number] Request/[id number] / Procedures Referred By ContactReferred To Contact Diagnoses Polyneuropathy Spinal stenosis of lumbar region, unspecified whether neurogenic claudication present Degenerative disc disease, lumbar Gaby Christianson, HARPAL [address] [place] [phone] Referral IDStatusReasonStart DateExpiration DateVisits RequestedVisits [id number] Review/[id number] / ProceduresReferred By ContactReferred To ContactPhysical Therapy Diagnoses Hx of total knee arthroplasty, left Hx of total knee arthroplasty, right New Mcclure MD [address] [place] [address] Referral IDStatusReasonStart DateExpiration DateVisits RequestedVisits [id number] Request/[id number] / Procedures Referred By ContactReferred To Contact Diagnoses Hx of total knee arthroplasty, right Procedures XR KNEE RIGHT 1-2 VIEWS XR KNEE RIGHT 3 VIEWS New Mcclure MD [address] [place] [address] Referral IDStatusReasonStart DateExpiration DateVisits RequestedVisits [id number] Request/[id number] Kannan DateExpiration DateVisits RequestedVisits [id number] Request11/26/2024 Instructions * Patient Instructions - Everton Ball RN - 10/13/2018 12:21 PM EST Formatting of this note may be different from the original. Genoveva from Dr Mcclure's office will call you for your arrival time, 1-2 business days before your scheduled surgery. Please review your surgery checklist and bring your Guide or binder the day of surgery. Pre-Admission Testing Dept. [phone] Call if you have any changes in [...] of surgery LAST DOSE: DATE TIME Biotin 02743 MCG Tab take 2 tablets by mouth [...] LAST DOSE: DATE TIME Hydroxychloroquine Sulfate (HYDROXYCHLOROQUINE, [id number],) 200 MG Tab Take 200 mg by [...] History of Present Illness * Everton Ball, MARYCARMEN - 10/23/2018 9:00 AM EST Formatting of [...] by patient in chart. in this encounter* RonaldmarianneDarren, PT - 11/24/2018 1:41 PM EST Formatting of this note may be different from the original. 11/24/18 1100 Subjective RN Approved Intervention as tolerated Existing Precautions/Restrictions fall;weight bearing;other (see comments) (TTWB left LE, knee immobilizer to be worn at all times) Subjective Reports Patient reports feeling ready to go to [facility] later today Cognitive Status Examination Orientation [...] reach Communication Patient to discharge to [facility] later today Transfer Skill: Sit To Stand, Rehab Eval Roberts (Sit-Stand Transfers) supervision Physical Assist/Nonphysical Assist: Sit/Stand 1 person assist Weight-Bearing Restrictions: Sit/Stand toe touch weight-bearing Assistive Device For Transfer: Sit/Stand 2 wheeled walker Gait Skills, PT Eval Level of Roberts: Gait stand-by assist Weight-Bearing Restrictions: Gait toe touch weight-bearing Assistive Device For Transfer: Gait 2 wheeled walker Gait Distance other (see comments) (60 ft) Gait Analysis, PT Eval Gait Pattern Used swing-to gait Stair Negotiation Level of Roberts: Stair Negotiation unable to perform Clinical Impression [...] training. Maintain frequency yes * Maryam Zapata RPh,PharmD - 11/24/2018 1:26 PM EST Apixaban (Eliquis) Patient Education / Transition of Care PATIENT: Danyelle Haskins Room/Bed: [facility] Apixaban (Eliquis) Education Patient was provided with Apixaban (Eliquis) Education Sheet. Discussed in detail with patient about what Apixaban is, to take as directed, what to do if a dose is missed, and emphasized that compliance is extremely important to avoid stroke or any other serious event. Additional education was provided regarding side effects that should be reported to their physicianor health hospice home care coordinator as soon as possible. I also advised the patient to provide an updated medication list to all health child day care teacher as certain medications can interact with apixaban. Patient verbally acknowledged an understanding of the information provided. Please contact pharmacyif there are any questions. Signed: Maryam Zapata RPh,PharmD, nubia Phone: [phone] Date/Time: 11/24/2018 1:26 PM * Krystal Bravo, [...] UE exercises Therapist Information License # [id number] * Tanvi Hernandez, [facility] - 11/23/2018 1:43 PM EST Formatting of [...] air (11/23 1155) Flow (L/min): 2 (11/23 0530) Intake and Output: Intake/Output Summary (Last 24 [...] S/p left TKA POD#2 PT OT social and human services assistant discharge planning DVT prophylaxis Eliquis PT OT SS for dc planning- will likely discharge next 24-48 hours to [facility] GI/DVT prophylaxis with protonix and SCD and Eliquis Associated attestation - Seifu, Brady, MD - 11/23/2018 4:06 PM EST I [...] assessment and plan and agree with the SET UP MECHANIC findings and plan of care as documented. I agree with their findings and plan with any exceptions or additions noted below. Doing well today. Principal Problem: Pain in left knee Active Problems: Obesity: body mass index of 30.0-34.9 Benign hypertension Rheumatoid arthritis GERD (gastroesophageal reflux disease) Synovial hernia * Demarcus Hutchison, MASTIC WORKER - 11/23/2018 11:39 AM EST Formatting of [...] like knee brace had slid down leg. MASTIC WORKER began with readjusting knee brace in proper [...] Transfer Skill: Sit To Stand, Rehab Eval Roberts (Sit-Stand Transfers) contact guard Physical Assist/Nonphysical Assist: Sit/Stand 1 person assist Weight-Bearing Restrictions: Sit/Stand toe touch weight-bearing Assistive Device For Transfer: Sit/Stand 2 wheeled walker Gait Skills, PT Eval Level of Roberts: Gait contact guard Weight-Bearing Restrictions: Gait toe [...] device on. Impression: [facility] 1. [facility]/OT 2. DVT prophylaxis [...] Transfer Skill: Sit To Stand, Rehab Eval Roberts (Sit-Stand Transfers) contact guard Physical Assist/Nonphysical Assist: Sit/Stand 1 person assist Weight-Bearing Restrictions: Sit/Stand toe touch weight-bearing (pt using NWB on L LE) Assistive Device For Transfer: Sit/Stand 2 wheeled walker Gait Skills, PT Eval Level of Roberts: Gait contact guard Weight-Bearing Restrictions: Gait toe touch weight-bearing (Pt using NWB on L LE) Assistive Device For Transfer: Gait 2 wheeled walker Gait Distance (20ft, 20ft) Gait Analysis, PT Eval Gait Pattern Used swing-to gait Plan Plan for next visit Plan to continue with strengthening and transfers/gait Maintain frequency yes * Aurora Arroyo, LABORER [employer] - 11/22/2018 12:52 PM EST Call received from [facility] stating they can take patient anytime on Tuesday afternoon or after. * Demarcus Hutchison, MASTIC WORKER - 11/22/2018 11:56 AM EST Formatting of [...] Transfer Skill: Sit To Stand, Rehab Eval Roberts (Sit-Stand Transfers) contact guard Physical Assist/Nonphysical Assist: Sit/Stand 1 person assist Weight-Bearing Restrictions: Sit/Stand toe touch weight-bearing (NWB on L LE) Assistive Device For Transfer: Sit/Stand 2 wheeled walker Gait Skills, PT Eval Level of Roberts: Gait contact guard Weight-Bearing Restrictions: Gait toe touch weight-bearing (pt using NWB on L LE) Assistive Device For Transfer: Gait 2 wheeled walker Gait Distance 25 feet Gait Analysis, PT Eval Gait Pattern Used swing-to gait Plan Plan for next visit Plan to continue with strengthening, transfers/gait, and practice car transfer Maintain frequency yes * Jacey Valdez, NIURKA-SET UP MECHANIC - 11/22/2018 10:52 AM EST Formatting of [...] S/p left TKA POD#1 PT OT social and human services assistant discharge planning DVT prophylaxis Eliquis PT OT SS for dc planning GI/DVT prophylaxis with protonix and SCD and Eliquis Associated attestation - Brady Lozoya MD - 11/22/2018 4:50 PM EDMUND Haskins was personally seen and examined. I agree with the examination, assessment, and plan as described below by the POLYMERIZATION HELPER with the following additions/exceptions: Feeling well today. [...] with post operative care. * Rajinder Green, NIURKA-SET UP MECHANIC - 11/22/2018 8:52 AM EST Formatting of [...] states that she is currently employed at [employer] in [place]. She stated that prior to the surgery she was completely independent and able to cook, clean and drive. Patient states that her goal upon discharge it to go to an extended care facility to get more therapy for her knee and regain her strength. Patient stated that she wanted to go to the [facility] as it is close to her home. Patient reviewed and signed the Area Nursing facility list for [facility]. CM to make referral. CM to [...] 0 Equipment Available wheeled walker;shower chair;elevated toilet seat;instructor bus trolley and taxi;sock-aid;long-handled shoe horn;hand held shower hose Cognitive Status Examination Orientation Status (Cognition) oriented x 4 Level of Consciousness alert Able to Follow Commands (Communication) WNL Personal Safety and Judgment intact Short Term Memory intact Skilled Nursing Memory intact Vision (check all that apply) Vision prescription glasses Sensory Examination Sensory Examination WFL (numbness in bilateral LE at baseline) Range of Motion (ROM) Range of Motion Examination bilateral upper extremity ROM was WFL Bed Mobility Skill: Supine to Sit, Rehab Eval Level of Roberts: Supine/Sit stand-by assist Physical Assist/Nonphysical Assist: Supine/Sit 1 person assist Transfer Skill: Sit to Stand, Rehab Eval Level of Roberts: Sit/Stand contact guard Physical Assist/Nonphysical Assist: Sit/Stand 1 person assist Weight-Bearing Restrictions: Sit/Stand toe touch weight-bearing Assistive Device for Transfer: Sit/Stand wheeled walker Upper Body Dressing Level of Roberts (set up) Lower Body Dressing Level of Roberts moderate assist (50% patients effort) Physical Assist/Nonphysical Assist 1 person assist Assistive Device instructor bus trolley and taxi General Therapy Interventions Planned Therapy Interventions (OT [...] yes Goals Goals For Discharge discharge to [facility] Discussed risk / benefits with patient Therapist Recommendations At Discharge Recommendations OT Services recommended at Discharge Plan Plan Narrative continue with bathing, dressing and transfer training Therapist Information License # [id number] 1. Pt will complete LB dressing min [...] Supine to Sit, Rehab Eval Level of Roberts: Supine/Sit stand-by assist Transfer Skill: Sit To Stand, Rehab Eval Roberts (Sit-Stand Transfers) minimum assist (75% patient effort) Weight-Bearing Restrictions: Sit/Stand toe touch weight-bearing Assistive Device For Transfer: Sit/Stand 2 wheeled walker Gait Skills, PT Eval Level of Roberts: Gait contact guard Weight-Bearing Restrictions: Gait toe [...] swelling, and pt reports understanding. PRIOR LEVEL AM-PAC Basic Mobility Inpatient Short Form Turning over in bed 4 - No Assistance Sitting/standing from chair 4 - No Assistance Moving from lying on back to sitting 4 - No Assistance Moving to and from bed to chair 4 - No Assistance Walk in hospital room 4 - No Assistance Climbing 3-5 steps with a railing 4 - No Assistance PRIOR LEVEL [facility] Mobility Raw Score 24 PRIOR LEVEL [facility] Mobility Functional Limitation/Modifier 0.00% Prior Functional Impairment in Basic Mobility - CH CURRENT [facility] Basic Mobility Inpatient Short Form Turning [...] 2 - A Lot of Assistance CURRENT [facility] Mobility Raw Score 17 CURRENT [facility] Mobility Functional Limitation/Modifier 50.57% Currently Impaired in Basic Mobility - CK Projected [facility] Mobility Raw Score 20 Projected [facility] Mobility Functional Limitation/Modifier 35.83% Projected Functional [...] as able. Therapist Information [place] # [id number] PT Goals: 1. Pt will demonstrate understanding [...] on LLE. PTAs notified. * Rajinder Green, LAND APPRAISER-SET UP MECHANIC - 11/21/2018 2:04 PM EST THIS PATIENT HAS HAD ORTHOPEDIC SURGERY AND IS EXPECTED TO HAVE PAIN REQUIRING NARCOTICS FOR >7 DAYS AND MAY NEED UP TO 12 tabs of oxycodone PER DAY AND THEREFORE 60tabs ARE BEING DISPENSED IN ACCORDANCE WITH POC DISCUSSED WITH DR MCCLURE. in this encounter* Rajinder Green, NIURKA-SET UP MECHANIC - 12/14/2018 3:00 PM EST Formatting of this note may be different from the original. HISTORY OF PRESENT ILLNESS: Danyelle is an established patient of [facility]. She is here today for followup. She is now about 3 weeks status post left extensor mechanism repair with grafting of the extensor mechanism. She reports overall she has been doing well. She has been residing in the [facility]. She has been largely nonweightbearing [...] per her previous regimen prescribed by her lehr stripper. I will leave this up to the house physician at the [facility], where she is residing today. She [...] and concerns were addressed to her satisfaction. (DOC:[id number]) Procedures I have reviewed the findings of the clinical instructional support assistant and agree with their assessment. EFREN Logan Ortho Nurse Established Patient Intake Room#: 4 Date: 12/14/2018 2:47 PM Patient: Danyelle Haskins MR#: [id number] : 1955 Age: 63 y.o. 3 wk [...] CATARACT W/ IMPLANT (ECCE IOL) Bilateral 2017 [facility] TREATMENT OPEN PATELLAR FX W/ INTERNAL [...] mouth 3 times daily as needed. Biotin 42769 MCG Tab take 2 tablets by mouth [...] as needed. , Disp: , Rfl: Biotin 42510 MCG Tab, take 2 tablets by mouth [...] 12/14/2018 2:47 PM Patient: Danyelle Haskins MR#: [id number] : 1955 Age: 63 y.o. 3 wk s/p L knee revision. Pt states she is doing well, denies any pain. T ROM brace in place lockedin extension. Referring Physician: Rajinder Green, LAND APPRAISER-SET UP MECHANIC Insurance: Payor: MEDICARE / Plan: MEDICARE A [...] CATARACT W/ IMPLANT (ECCE IOL) Bilateral 2017 [facility] TREATMENT OPEN PATELLAR FX W/ INTERNAL [...] mouth 3 times daily as needed. Biotin 54488 MCG Tab take 2 tablets by mouth [...] as needed. , Disp: , Rfl: Biotin 04811 MCG Tab, take 2 tablets by mouth [...] have reviewed the findings of the clinical instructional support assistant and agree with their assessment. New Mcclure MD Ortho Nurse Established Patient Intake Room#: 3 Date: 03/01/2019 2:16 PM Patient: Danyelle Haskins MR#: [id number] : 1955 Age: 63 y.o. 6wk F/U [...] CATARACT W/ IMPLANT (ECCE IOL) Bilateral 2018 [facility] TREATMENT OPEN PATELLAR FX W/ INTERNAL [...] mouth 3 times daily as needed. Biotin 00900 MCG Tab take 2 tablets by mouth [...] as needed. , Disp: , Rfl: Biotin 76355 MCG Tab, take 2 tablets by mouth [...] 03/01/2019 2:16 PM Patient: Danyelle Haskins MR#: [id number] : 1955 Age: 63 y.o. 6wk F/U [...] CATARACT W/ IMPLANT (ECCE IOL) Bilateral 2018 [facility] TREATMENT OPEN PATELLAR FX W/ INTERNAL [...] mouth 3 times daily as needed. Biotin 79594 MCG Tab take 2 tablets by mouth [...] as needed. , Disp: , Rfl: Biotin 29658 MCG Tab, take 2 tablets by mouth [...] have reviewed the findings of the clinical instructional support assistant and agree with their assessment. New Mcclure MD Ortho Nurse Established Patient Intake Room#: 4 F/U Right hip, feeling better, pain of 5-6 when doing steps, done with PT; Left TKA 11-21-, last PT was yesterday, pain of 1-2 Date: 04/18/2019 4:31 PM Patient: Danyelle Haskins MR#: [id number] : 1955 Age: 63 y.o. Referring Physician: [...] Pain Presence of Pain: complains of pain/discomfort (04/18/19 1629) Pain Location: knee, left;hip, right (04/18/19 162) Select Pain Scale: DVPRS (Defense and Veterans Pain Rating Scale) (Adult- Cognitively Intact) (04/18/19 162) Pain Location: knee, left;hip, right (04/18/191628) Select Pain Scale: DVPRS (Defense and Veterans Pain Rating Scale) (Adult- Cognitively Intact) (04/18/19 162) Recent Labs No results found for: CRP [...] CATARACT W/ IMPLANT (ECCE IOL) Bilateral 2018 [facility] TREATMENT OPEN PATELLAR FX W/ INTERNAL [...] mouth 3 times daily as needed. Biotin 74828 MCG Tab take 2 tablets by mouth [...] as needed. , Disp: , Rfl: Biotin 46670 MCG Tab, take 2 tablets by mouth [...] 04/18/2019 4:31 PM Patient: Danyelle Haskins MR#: [id number] : 1955 Age: 63 y.o. Referring Physician: [...] CATARACT W/ IMPLANT (ECCE IOL) Bilateral 2018 [facility] TREATMENT OPEN PATELLAR FX W/ INTERNAL [...] mouth 3 times daily as needed. Biotin 44263 MCG Tab take 2 tablets by mouth [...] as needed. , Disp: , Rfl: Biotin 20768 MCG Tab, take 2 tablets by mouth [...] of the right knee, which demonstrate knee, [id number] arthritis of the lateral compartment, and multiple [...] she like to proceed with surgical revision. (DOC:[id number]) LARGE JOINT INJECTION: R knee Date/Time: 11/21/2019 [...] have reviewed the findings of the clinical instructional support assistant and agree with their assessment. New Mcclure MD Ortho Nurse Established Patient Intake Room#: 3---1 year post-op check for left TKA . She has been doing well. Date: 11/21/2019 1:38 PM Patient: Danyelle Haskins MR#: [id number] : 1955 Age: 64 y.o. Referring Physician: [...] CATARACT W/ IMPLANT (ECCE IOL) Bilateral 2018 [facility] TREATMENT OPEN PATELLAR FX W/ INTERNAL [...] mouth 3 times daily as needed. Biotin 01901 MCG Tab take 2 tablets by mouth [...] 11/21/2019 1:38 PM Patient: Danyelle Haskins MR#: [id number] : 1955 Age: 64 y.o. Referring Physician: [...] CATARACT W/ IMPLANT (ECCE IOL) Bilateral 2017 [facility] TREATMENT OPEN PATELLAR FX W/ INTERNAL [...] mouth 3 times daily as needed. Biotin 78761 MCG Tab take 2 tablets by mouth [...] have reviewed the findings of the clinical instructional support assistant and agree with their assessment. Ortho Nurse Established Patient Intake Room#: 2 2 year Left TKA 11-21-18, pain of 2, cannot straighten her leg and it varinder, Amoxicillin was ordered today Date: 11/19/2020 2:31 PM Patient: Danyelle Haskins MR#: [id number] : 1955 Age: 65 y.o. Referring Physician: [...] CATARACT W/ IMPLANT (ECCE IOL) Bilateral 2017 [facility] TREATMENT OPEN PATELLAR FX W/ INTERNAL [...] Take 500 mg by mouth daily. Biotin 16420 MCG Tab take 2 tablets by mouth 2 times daily.. Calcium Carb-Cholecalciferol (CALCIUM 600 + D) 600-200 MG-UNIT Tab tablet Take 2.5 tablets by mouthDaily (with lunch). Diclofenac Sodium 1 % Gel gel Diclofenac Diclofenac Sodium Active 4 GM Topical Four times daily October 01, 2020 10:38am 10-01-2020 [facility] ([id number]) ferrous sulfate 325 (65 Fe) MG Tab [...] by mouth daily., Disp: , Rfl: Biotin 29383 MCG Tab, take 2 tablets by mouth 2 times daily.. , Disp: , Rfl: Calcium Carb-Cholecalciferol (CALCIUM 600 + D) 600-200 MG-UNIT Tab tablet, Take 2.5 tablets by mouth Daily (with lunch). , Disp: , Rfl: Diclofenac Sodium 1 % Gel gel, Diclofenac Diclofenac Sodium Active 4 GM Topical Four times daily October 01, 2020 10:38am 10-01-2020 [facility] ([id number]), Disp: , Rfl: ferrous sulfate 325 (65 [...] 11/19/2020 2:31 PM Patient: Danyelle Haskins MR#: [id number] : 1955 Age: 65 y.o. Referring Physician: [...] CATARACT W/ IMPLANT (ECCE IOL) Bilateral 2017 [facility] TREATMENT OPEN PATELLAR FX W/ INTERNAL [...] Take 500 mg by mouth daily. Biotin 40164 MCG Tab take 2 tablets by mouth 2 times daily.. Calcium Carb-Cholecalciferol (CALCIUM 600 + D) 600-200 MG-UNIT Tab tablet Take 2.5 tablets by mouthDaily (with lunch). Diclofenac Sodium 1 % Gel gel Diclofenac Diclofenac Sodium Active 4 GM Topical Four times daily October 01, 2020 10:38am 10-01-2020 [facility] ([id number]) ferrous sulfate 325 (65 Fe) MG Tab [...] by mouth daily., Disp: , Rfl: Biotin 16107 MCG Tab, take 2 tablets by mouth 2 times daily.. , Disp: , Rfl: Calcium Carb-Cholecalciferol (CALCIUM 600 + D) 600-200 MG-UNIT Tab tablet, Take 2.5 tablets by mouth Daily (with lunch). , Disp: , Rfl: Diclofenac Sodium 1 % Gel gel, Diclofenac Diclofenac Sodium Active 4 GM Topical Four times daily October 01, 2020 10:38am 10-01-2020 [facility] ([id number]), Disp: , Rfl: ferrous sulfate 325 (65 [...] have reviewed the findings of the clinical instructional support assistant and agree with their assessment. New Mcclure MD Ortho Nurse Established Patient Intake Room#: 3 6 week F/U left knee ext mechanism repair, no C/O pain Date: 01/03/2019 3:26 PM Patient: Danyelle Haskins MR#: [id number] : 1955 Age: 63 y.o. Referring Physician: [...] CATARACT W/ IMPLANT (ECCE IOL) Bilateral 2018 [facility] TREATMENT OPEN PATELLAR FX W/ INTERNAL [...] mouth 3 times daily as needed. Biotin 41149 MCG Tab take 2 tablets by mouth [...] as needed. , Disp: , Rfl: Biotin 73132 MCG Tab, take 2 tablets by mouth [...] 01/03/2019 3:26 PM Patient: Danyelle Haskins MR#: [id number] : 1955 Age: 63 y.o. Referring Physician: [...] CATARACT W/ IMPLANT (ECCE IOL) Bilateral 2017 [facility] TREATMENT OPEN PATELLAR FX W/ INTERNAL [...] mouth 3 times daily as needed. Biotin 73766 MCG Tab take 2 tablets by mouth [...] as needed. , Disp: , Rfl: Biotin 77215 MCG Tab, take 2 tablets by mouth [...] and oxcarbazepine. documented in this encounter Assessments DiagnosisPre-op exam - Primary Preoperative examination, unspecified Diagnosis [...] S/p left TKA POD#3 PT OT social and human services assistant discharge planning DVT prophylaxis Lori Will dc [...] % LIQD Commonly known as: HIBICLENS hydroxychloroquine ([facility]-43786) 200 MG TABS leflunomide 20 MG TABS [...] as needed. Commonly known as: LIORESAL Biotin 24866 MCG TABS take 2 tablets by mouth [...] as tolerated. Discharge Follow-up: New Mcclure MD [address] [facility] [address] In 3 weeks Discharge Disposition: Patient will be discharged in stable condition. Discharge Time: Including assessment, planning, and medication reconciliation was greater than 35 min. Tanvi Hernandez DNP completing Discharge Summary for Dr. Vance Please note Portions of this note utilized Zhihu dictation software, please excuse any typographical or [...] be removed by a nurse at the [facility] 10[facility]14 days after surgery. Your surgery d [...] - 11/24/2018 5:16 PM EST Contact Office ([phone]) if: > Total Knee ROM < 90 [...] Care Everywhere. * Acetaminophen tablets or caplets (Marshallese) * Apixaban oral tablets (Marshallese) * Docusate capsules (Marshallese) * Oxycodone tablets or capsules (Marshallese) in this encounter Chief Complaint and Reason [...] 10:38am Spinal stenosis of lumbar region Septemb 2024 10:38am Chief Complaint Admit Date 4 [...] 2025 10:38am Carpal tunnel syndrome, bilateral Septem 2024 10:38am Polyneuropathy July 17, 2025 10:38am Spinal stenosis of lumbar region Septemb 2024 10:38am Additional Source Comments INFORMATION SOURCE (unrecogn ized section and content) DATE CREATED AUTHOR 05/02/2018 [facility] DATE CREATED AUTHOR AUTHOR'S ORGANIZ ATION 05/02/[address] [facility] DATE CREATED AUTHOR AUTHOR'S ORGANIZ ATION 05/05/2018 [facility] DATE CREATED AUTHOR AUTHOR'S ORGANIZ ATION 03/22/2020 [facility] DATE CREATED AUTHOR AUTHOR'S ORGANIZ ATION 02/01/2022 [facility] DATE CREATED AUTHOR AUTHOR'S ORGANIZ ATION 02/13/2023 [facility] DATE CREATED AUTHOR AUTHOR'S ORGANIZ ATION 07/09/2023 [facility] DATE CREATED AUTHOR AUTHOR'S ORGANIZ ATION 11/30/2024 [facility] DATE CREATED AUTHOR AUTHOR'S ORGANIZ ATION 06/21/2025 [facility] EPIC Reason for Visit (unrecogniz ed section and content) ReasonCommentsPreoperative Nurse AssessmentSurgery scheduled 11/21/18StatusReason SpecialtyDiagnoses / ProceduresReferred By ContactReferred To Contact Diagnoses 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] New Mcclure MD [address] [place] [address] StatusReasonSpecialtyDiagnoses / ProceduresReferred By ContactReferred To ContactNew Request Diagnoses Hx of total knee arthroplasty, left Procedures XR KNEE LEFT 2 VIEWS XR KNEE LEFT 3 VIEWS Rajinder Green APRN-MARTY [address] [place], [place] [id number] ReasonCommentsPost Op VisitReasonCommentsLeg SwellingReasonCommentsFollow-upPost Op VisitStatusReasonSpecialtyDiagnoses / ProceduresReferred By ContactReferred To ContactNew Request Diagnoses Left knee pain, unspecified chronicity Procedures XR KNEE LEFT 2 VIEWS XR KNEE LEFT 3 VIEWS New Mcclure MD [address] [place], [place] [phone] ReasonCommentsFollow-upStatusReasonSpecialtyDiagnoses / ProceduresReferred By ContactReferred To ContactPending Review Diagnoses History of total knee arthroplasty, left Procedures XR KNEE LEFT 3 VIEWS New Mcclure MD [address] [place], [place] [phone] ReasonCommentsPost Op VisitReasonCommentsFollow-upReasonCommentsSkin Problem StatusReasonSpecialtyDiagnoses / ProceduresReferred By ContactReferred To ContactNew Request Diagnoses Hx of total knee arthroplasty, left Procedures XR KNEE LEFT 3 VIEWS New Mcclure MD [address] [place], [place] [phone] StatusReasonSpecialtyDiagnoses / ProceduresReferred By ContactReferred To ContactNew Request Diagnoses Right hip pain Procedures XR HIP WITH PELVIS RIGHT New Mcclure MD [address] [place], [place] [phone] ReasonCommentsFollow-upSpecialtyDiagnoses / ProceduresReferred By Contact Referred To Contact Diagnoses Hx of total knee arthroplasty, right Procedures XR KNEE RIGHT 3 VIEWS Rajinder Green APRN-MARTY [address] [place], [place] [phone] Referral IDStatusReasonStart DateExpiration DateVisits RequestedVisits [id number] [id number] / Procedures Referred By ContactReferred To Contact Diagnoses Hx of total knee arthroplasty, right Procedures XR BONE LENGTH STUDY New Mcclure MD [address] [place] [address] Referral IDStatusReasonStart DateExpiration DateVisits RequestedVisits [id number] CommentsPreoperative AssessmentLTKA revision w/poss extensor mechanism reconstruction 11/29 SAF Pg *PAT ONLY SpecialtyDiagnoses / ProceduresReferred By ContactReferred To Contact Diagnoses Preop testing Procedures PREPARE TO TRANSFUSE RED BLOOD CELLS New Mcclure MD [address] [place] [address] Referral IDStatusReasonStart DateExpiration DateVisits RequestedVisits [id number] [id number] / ProceduresReferred By ContactReferred To Contact Diagnoses Hx of total knee arthroplasty, left Procedures XR KNEE LEFT 1-2 VIEWS XR KNEE LEFT 3 VIEWS Rajinder Green, NIURKA-MARTY [address] [place], [place] [phone] Referral IDStatusReasonStart DateExpiration DateVisits RequestedVisits [id number] Request/[id number] / Procedures Referred By ContactReferred To Contact Diagnoses Right knee pain, unspecified chronicity Procedures XR KNEE RIGHT 3 VIEWS New Mcclure MD [address] [place], [place] [phone] Referral IDStatusReasonStart DateExpiration DateVisits RequestedVisits [id number] [id number]rin Diagnoses / ProceduresReferred By ContactReferred To Contact Diagnoses Hx of total knee arthroplasty, left Procedures XR BONE LENGTH STUDY Rajinder Green APRN-MARTY [address] [place] [address] Referral IDStatusReasonStart DateExpiration DateVisits RequestedVisits [id number] Request/[id number]-coZoiebd CommentsFollow-up14d s/p I&dReasonCommentsToenail CareNon Dm NailsReasonComments Back PainNumbnessReasonCommentsIngrown ToenailRt gt ingrownReasonComments Botulinum Toxin InjectionReasonOnset JfvxZyurkqjbRl15/23/2024easonComments Follow-up14d s/p rt gt avulsionReasonCommentsToenail CareNon dm nail care SpecialtyDiagnoses / ProceduresReferred By ContactReferred To Contact Diagnoses Hx of total knee arthroplasty, right Procedures XR KNEE RIGHT 1-2 VIEWS XR KNEE RIGHT 3 VIEWS New Mcclure MD [address] [place] [address] Referral IDStatusReasonStart DateExpiration DateVisits RequestedVisits [id number] Request/[id number]lm Pain BlepharospasmReasonCommentsFoot UlcerCallous infected, turned into ulcerReason CommentsFollow-upLt 3rd cellulitisReasonCommentsFollow-upLt 3rd ulcerReason CommentsPost-op1ST POST- LEFT PIPJReasonCommentsPost-op14d s/p lt 3rd pipjReason CommentsPost-op21d s/p lt 3rd pipjReasonCommentsPost-op5wk lt 3rd pipjReason Onset DateCommentsMed Hdmhcj1603/20/2025ReasonCommentsMacular DegenerationReason CommentsToenail Care Care Teams (unrecognized sec tion and content) Team MemberRelationshipSpecialtyStart DateEnd Date Yulisa Batres MD [address] [facility] [place] [place] [address] [place] [address] PCP - GeneralFamily Medicine03/18/23Team MemberRelationshipSpecialtyStart DateEnd Date Yulisa Batres MD [address] [facility] [place] [place] [address] [place] [address] PCP - GeneralFamily Medicine03/18/23Team MemberRelationshipSpecialtyStart DateEnd Date Yulisa Batres MD [address] [facility] [place] [place] [address] [place] [address] PCP - GeneralFamily Medicine03/18/23Team MemberRelationshipSpecialtyStart DateEnd Date Yulisa Batres MD [address] [facility] [place] [place] [address] [place] [address] PCP - GeneralFamily Medicine03/18/23Team MemberRelationshipSpecialtyStart DateEnd Date Yulisa Batres MD [address] [facility] [place] [place] [address] [place] [address] PCP - GeneralFamily Medicine03/18/23Team MemberRelationshipSpecialtyStart DateEnd Date Yulisa Batres MD [address] [facility] [place] [place] [address] [place] [address] PCP - GeneralFamily Medicine03/18/23Team MemberRelationshipSpecialtyStart DateEnd Date Yulisa Batres MD [address] [facility] [place] [place] [address] [place] [address] PCP - GeneralFamily Medicine03/18/23Team MemberRelationshipSpecialtyStart DateEnd Date Yulisa Batres MD [address] [facility] [place] [place] [address] [place] [address] PCP - GeneralFamily Medicine03/18/23Team MemberRelationshipSpecialtyStart DateEnd Date Yulisa Batres MD [address] [facility] [place] [place] [address] [place] [address] PCP - GeneralFamily Medicine03/18/23Team MemberRelationshipSpecialtyStart DateEnd Date Yulisa Batres MD [address] [facility] [place] [address] [place] [address] PCP - GeneralFamily Medicine03/18/23Team MemberRelationshipSpecialtyStart DateEnd Date Yulisa Batres MD [address] [facility] [place] [place] [address] [place] [address] PCP - GeneralFamily Medicine03/18/23Team MemberRelationshipSpecialtyStart DateEnd Date Yulisa Batres MD [address] [facility] [place] [place] [address] [place] [address] PCP - GeneralFamily Medicine03/18/23Team MemberRelationshipSpecialtyStart DateEnd Date Yulisa Batres MD [address] [facility] [place] [address] [place] [address] PCP - GeneralFamily Medicine03/18/23Team MemberRelationshipSpecialtyStart DateEnd Date Yulisa Batres MD [address] [facility] [place] [address] [place] [address] PCP - GeneralFamily Medicine03/18/23Team MemberRelationshipSpecialtyStart DateEnd Date Yulisa Batres MD [address] [place] [facility] [place] [address] PCP - General07/06/23 Gaby Christianson, HARPAL [address] [place] [address] Nurse PractitionerNeurology01/26/24 Darren Monaco MD [address] Professional building 1 [place] [address] Referring PhysicianRheumatology07/31/24Team MemberRelationshipSpecialtyStart Date End Date Yulisa Batres MD [address] [facility] [place] [address] PCP - General07/06/23 Gaby Christianson, HARPAL [address] [place] [phone] Nurse PractitionerNeurology01/26/24 Darren Monaco MD [address] Professional building 1 [place] [address] Referring PhysicianRheumatology07/31/24Team MemberRelationshipSpecialtyStart Date End Date Yulisa Batres MD [address] [facility] [place] [address] PCP - General07/06/23 Gaby Christianson, HARPAL [address] [place] [address] Nurse PractitionerNeurology01/26/24 Darren Monaco MD [address] Professional building 1 [place] [address] Referring PhysicianRheumatology07/31/24Team MemberRelationshipSpecialtyStart Date End Date Yulisa Batres MD [address] [facility] [address] PCP - General07/06/23 Gaby Christianson NP [address] [phone] Nurse PractitionerNeurology01/26/24Team MemberRelationshipSpecialtyStart DateEnd Date Yulisa Batres MD [address] [facility] [address] PCP - General07/06/23 Gbay Christianson, HARPAL [address] [phone] Nurse PractitionerNeurology01/26/24Team MemberRelationshipSpecialtyStart DateEnd Date Yulisa Batres MD [address] [place] [address] PCP - General07/06/23 Gaby Christianson NP [address] [address] Nurse PractitionerNeurology01/26/24 Darren Monaco MD [address] [facility] Professional building 1 [place] [address] Referring PhysicianRheumatology07/31/24Team MemberRelationshipSpecialtyStart Date End Date Yulisa Batres MD [address] [place] [facility] [place] [address] PCP - General07/06/23 Gaby Christianson, HARPAL [address] [place] [address] Nurse PractitionerNeurology01/26/24 Darren Monaco MD [address] [facility] Professional building 1 [place] [address] Referring PhysicianRheumatology07/31/24Team MemberRelationshipSpecialtyStart Date End Date Yulisa Batres MD [address] [place] [facility] [place] [address] PCP - General07/06/23 Gaby Christianson, HARPAL [address] [place] [address] Nurse PractitionerNeurology01/26/24 Darren Monaco MD [address] [facility] Professional building 1 [place] [address] Referring PhysicianRheumatology07/31/24Team MemberRelationshipSpecialtyStart Date End Date Yulisa Batres MD [address] [place] [facility] [place] [address] PCP - General07/06/23 Gaby Christianson NP [address] [place] [address] Nurse PractitionerNeurology01/26/24 Darren Monaco MD [address] [facility] Professional building 1 [place] [address] Referring PhysicianRheumatology07/31/24Team MemberRelationshipSpecialtyStart Date End Yulisa Batres MD [address] [place] [facility] [place] [address] PCP - General07/06/23 Gaby Christianson NP [address] [place] [phone] Nurse PractitionerNeurology01/26/24Team MemberRelationshipSpecialtyStart DateEnd Yulisa Batres MD [address] [facility] [place] [address] PCP - General07/06/23 Gaby Christianson NP [address] [place] [address], [place] [phone] Nurse PractitionerNeurology01/26/24Team MemberRelationshipSpecialtyStart DateEnd Yulisa Batres MD [address] [facility] [place] [address] PCP - General07/06/23 Gaby Christianson NP [address] [place] [address], [place] [phone] Nurse PractitionerNeurology01/26/24Team MemberRelationshipSpecialtyStart DateEnd Date Yulisa Batres MD [address] [facility] [place] [address] PCP - General07/06/23 Gaby Christianson NP [address] [phone] Nurse PractitionerNeurology01/26/24Team MemberRelationshipSpecialtyStart DateEnd Date Yulisa Batres MD [address] [place] [facility] [place] [address] PCP - General07/06/23 Gaby Christianson NP [address] [phone] Nurse PractitionerNeurology01/26/24 Darren Monaco MD [address] [facility] Professional building 1 [place] [address] Referring PhysicianRheumatology07/31/24Team MemberRelationshipSpecialtyStart Date End Date Yulisa Batres MD [address] [place] [facility] [place] [address] PCP - General07/06/23 Gaby Christianson NP [address] [phone] Nurse PractitionerNeurology01/26/24Team MemberRelationshipSpecialtyStart DateEnd Date Yulisa Batres MD [address] [place] [facility] [place] [address] PCP - General07/06/23 Gaby Christianson NP [address] [phone] Nurse PractitionerNeurology01/26/24 Darren Monaco MD [address] [facility] Professional building 1 [place] [address] Referring PhysicianRheumatology07/31/24Team MemberRelationshipSpecialtyStart Date End Date Yulisa Batres MD [address] [facility] [place] [address] PCP - General07/06/23 Gaby Christianson NP [address] [place] [address], [place] [phone] Nurse PractitionerNeurology01/26/24 Darren Monaco MD [address] [facility] Professional building 1 [place] [address] Referring PhysicianRheumatology07/31/24Team MemberRelationshipSpecialtyStart Date End Date Yulisa Batres MD [address] [facility] [place] [place] [address] [place] [address] PCP - GeneralFamily Medicine03/18/23Team MemberRelationshipSpecialtyStart DateEnd Date Yulisa Batres MD [address] [facility] [place] [address] PCP - GeneralFamily Medicine03/18/23Team MemberRelationshipSpecialtyStart DateEnd Date Yulisa Batres MD [address] [facility] [place] [address] PCP - General07/06/23 Gaby Christianson NP [address] [place] [address] Nurse PractitionerNeurology01/26/24 Darren Monaco MD [address] [facility] Professional building 1 [place] [address] Referring PhysicianRheumatology07/31/24Team MemberRelationshipSpecialtyStart Date End Date Yulisa Batres MD [address] [place] [facility] [place] [address] PCP - General07/06/23 Gaby Christianson, HARPAL [address] [address] Nurse PractitionerNeurology01/26/24 Darren Monaco MD [address] [facility] Professional building 1 [place] [address] Referring PhysicianRheumatology07/31/24Team MemberRelationshipSpecialtyStart Date End Date Yulisa Batres MD [address] [place] [facility] [place] [address] PCP - General07/06/23 Gaby Christianson NP [address] [address] Nurse PractitionerNeurology01/26/24 Darren Monaco MD [address] [facility] Professional building 1 [place] [address] Referring PhysicianRheumatology07/31/24Team MemberRelationshipSpecialtyStart Date End Date Yulisa Batres MD PCP - General07/06/23 Gaby Christianson, HARPAL [address] [place] [phone] Nurse PractitionerNeurology01/26/24 Darren Monaco MD [address] Professional building 1 [place] [address] Referring PhysicianRheumatology07/31/24Team MemberRelationshipSpecialtyStart Date End Date Yulisa Batres MD PCP General07/06/23 Gaby Christianson NP [address] [phone] Nurse PractitionerNeurology01/26/24 Darren Monaco MD [address] [facility] Professional building 1 [place] [address] Referring PhysicianRheumatology07/31/24Team MemberRelationshipSpecialtyStart Date End Date Yulisa Batres MD PCP General07/06/23 Gaby Christianson NP [address] [place] [phone] Nurse PractitionerNeurology01/26/24 Darren Monaco MD [address] Professional building 1 [place] [address] Referring PhysicianRheumatology07/31/24 Team Status: Active Member Role Status Dates Yulisa Batres MD Primary Care Provider Active Team Status: Inactive Member Role Status Dates Yulisa Batres MD Primary Care Provider Active Start: May 01, 2025 End: May 01, 2025Sajordy Christianson APRN-FNP-CAttending ProviderActiveStart: May 01, 2025 End: May 01, 2025Team MemberRelationshipSpecialtyStart DateEnd Date Yulisa Batres MD PCP - General07/06/23 Gaby Christianson NP Nurse PractitionerNeurology01/26/24 Darren Monaco MD [address] [facility] Professional building [address] [place] [phone] Referring Physicianeumatology07/31/24Team MemberRelationshipSpecialtyStart Date End Date Yulisa Batres MD PCP - General07/06/23 Gaby Christianson NP Nurse PractitionerNeurology01/26/24 Darren Monaco MD [address] [facility] Professional building 1 [place] [address] Referring Physicianeumatology07/31/24 Team Status: Inactive Member Role Status Dates Yulisa Batres MD Primary Care Provider Active Start: June 13, 2025 End: June 13, 2025NicMedardo Schuler ProviderActiveStart: June 13, 2025 End: June 13, 2025Team MemberRelationshipSpecialtyStart DateEnd Date Yulisa Batres MD [address] [place] [address] PCP - General07/06/23 Gaby Christianson SUPERVISOR OF INSTRUCTION [address] [place] [facility] [place] [address] Nurse PractitionerNeurology01/26/24 Darren Monaco MD [address] [facility] Professional building 1 [place] [address] Referring PhysicianRheumatology07/31/24Team MemberRelationshipSpecialtyStart Date End Date Yulisa Batres MD [address] [place] [facility] [place] [address] PCP - General07/06/23 Gaby Christianson NP [address] [place] [facility] [place] [address] Nurse PractitionerNeurology01/26/24 Darren Monaco MD [address] [place] [address] Professional [address] [place] [address] Referring PhysicianRheumatology07/31/24 Team Status: Inactive Member Role Status Dates Yulisa Batres MD Primary Care Provider Active Start: June 26, 2025 End: June 26Medardo Villanueva ProviderActiveStart: June 26, 2025 End: June 26, 2025 Team Status: Inactive Member Role Status Dates Yulisa Batres MD Primary Care Provider Active Start: July 17, 2025 End: July 17Medardo Villanueva ProviderActive Start: July 17, 2025 End: July 17, 2025 Team Status: Inactive Member Role Status Dates Yulisa Batres MD Primary Care Provider Active Start: July 23, 2025 End: July 23Medardo Villanueva ProviderActive Start: July 23, 2025 End: July 23, [...] BE BASED ON THE PRIMARY CLINICAL RECORDS. [facility], [facility]. provides no warranty or guarantee of the accuracy or completeness of information in this document.
== END 2025-09-05 09:53 | disposition home or self-care (01) ==
LOC: MAMMO 09:52
PROVIDERS: PCP Family Medicine; Visit Provider Family Medicine
DX: Z12.31 Encounter for screening mammogram for malignant neoplasm of breast (principal); Z80.0 Family history of malignant neoplasm of digestive organs; Z80.8 Family history of malignant neoplasm of other organs or systems
CPT/HCPCS: 77063; 77067

== ENCOUNTER 2025-09-11 08:06 | Outpatient (OUT) | payer MEDICARE, BC, SELFPAY ==
--- OUTSIDE RECORDS SUMMARY | 2025-09-03 05:15 | XMS_ITS ---
Author Organization [facility] in [place] Address [address] [place] [address] Care Team Providers Care Academic Vice President Name Role Phone Howard Hoyos Primary Care Provider [phone] Allergies Allergen (clinical drug ingredient) Drug/Non Drug Allergy documented on EMR Reaction Allergy Type Onset Date Status alendronate Alendronate Sodium Indigestion Drug Allergy Activesulfamethoxazole / trimethoprimBactrimMuscle WeaknessDrug AllergyActive gabapentinGraliseBlistered SkinDrug AllergyActivegabapentinGabapentinNauseaDrug AllergyActiveoxcarbazepineOxcarbazepineConfusionDrug AllergyActive REASON FOR VISIT yearly, flu shot Medications Medication SIG (Take, Route, Frequency, Duration) Notes Start Date End Date Status Triamterene-HCTZ 37.5-25 MG 1 tablet in the morning Or ally Once a day PRN ActiveTurmeric 500 MGas directed OrallyUnknown DosageActivetraMADol HCl 50 MG1 tablet as needed Orally dx M48.061 tid; Duration: 30 days06/01/2024ctiveVitamin C 1000 MG1 tablet Orally Once a dayActiveTylenol Arthritis PainPRNActive predniSONE 5 MG2-3 tablets Orally as neededPRNActivePregabalin 25 MG1 capsule Orally dx M48.061 Twice Daily; Duration: 30 days06/01/2024ctiveMulti Vitamin -1 tablet Orally Once a dayActivePantoprazole Sodium 40 MGTAKE 1 TABLET BY MOUTH EVERY DAY; Duration: 90ActivetiZANidine HCl 4 MG1 tablet as needed Orally at bedtimeActiveHydroxychloroquine Sulfate 200 MGas directed Orally Twice Daily ActiveIbandronate Sodium 150 MG1 tablet 60 minutes before the first food, beverage or medicine of the day with plain water Orally once monthlyActive Lisinopril 40 MGTAKE 1 TABLET BY MOUTH EVERY DAY; Duration: 90ActiveMethotrexate 2.5 MG5 tablets Orally on TuesdayActivemethylPREDNISolone 4 MG 1 tablet with food or milk Orally every 12 hrs As needed PRN14ActiveDiclofenac Sodium 1 %External; Duration: 19 DaysActive Doxazosin Mesylate 4 MG1 tablet Once a day; Duration: 30 daysActiveCarvedilol 25 MGTAKE 1 TABLET BY MOUTH TWICE A DAY FOR 30 DAYS; Duration: 90ActiveFolic Acid 1 MG1 tablet Orally Once a dayActiveGlucosamine 1500 Complex -as directed Orally ActiveCalcium + D 500-1000-40 MG-UNT-MCG2 11/08 Orally DailyActiveBetamethasone Dipropionate 0.05 % 1 application Externally Twice a day As needed 08/28/2024ctiveBiotin 5000 MCGtwo tablets Sublingual twice a dayActiveArava 20 MG1 tablet Orally Once a dayActive Social History Tobacco Use: Social History Observation Description Date Details (start date - stop date) Never Smoker NA - NA Tobacco Use/Smoking Question Answer Notes Patient is a nonsmoker Vital Signs Blood pressure systolic 158 mm Hg 09/03/20 25 Blood pressure diastolic 98 mm Hg 025 Height 68 in 09/03/2025 Weight 224.0 lbs 09/03/2025 BMI 34.06 kg/m2 09/03/2025 Encounters Encounter Location Date Provider Diagnosis [facility] [address] [place] [address] 09/03/2025 Howard Hoy Hypertension I10 ; Hypothyroid E03.9 ; Hypercholesteremia E78.00 ; GERD (gastroesophageal reflux disease) K21.9 ; Insomnia G47.00 and Radiculopathy, lumbosacral region M54.17 Assessments Encounter Date Diagnosis (ICD Code) Assessment Notes Treatment Notes Treatment Clinical Notes Section Notes 09/03/2025 Hypertension (ICD-10 - I10) borderline elevation at home - keep meds same09/03/2025Hypothyroid (ICD-10 - E03.9)09/03/2025Hypercholesteremia (ICD-10 - E78.00)09/03/2025GERD (gastroesophageal reflux disease) (ICD-10 - K21.9)09/03/2025Insomnia (ICD-10 - G47.00)09/03/2025Radiculopathy, lumbosacral region (ICD-10 - M54.17) Plan Of Treatment Medication Medication Name Sig Start Date Stop Date Notes Amoxicillin-Pot Clavulanate 875-125 MG 4 tablet Orally 4 hours before procedure 11/11/2023 PRNTreatment Notes Assessment Notes Hypertension borderline elevation at home - keep meds same Pending Test Test Name Order Date HEMOGLOBIN A1C (GLYCO) 09/03/2025 IRON, TOTAL 09/03/2025 LIPID PANEL (CHOL/TRIG/HDL/LDL) 09/03/20 25 VITAMIN D, 25 LEVEL (TOTAL) 09/03/2025 THYROID PANEL (T4/TSH/FREE T3) CMP (COMP MET REYNA) w/eGFR CKD-EPI 2024 CBC WITH DIFF 09/03/2025 Progress Notes * Danyelle CHRISDOB:1955 (70 yo F)Acc No.[id number]:09/03/2025 Progress Note Patient: Danyelle PAUL :?Stevie Hoyos ([facility]), MDDOB:1955???Age: 70 Y???Sex:FemaleDate:09/03/2025Phone:[phone]:[address] [facility] [place], [id number] In:10:12 AM ESTCheck Out:11:10 AM EST Subjective: * Chief Complaints: * Y early, flu shot * HPI: ???General:? disucsced low back pain htn - up at [facility]? no SE. * ROS: ???EENT:?hearing changes?denies.?visual changes?denies. non-healing mouth sores?denies.?swollen glands or neck lumps?denies.?hoarseness?denies.?sore throat?denies.?difficulty swallowing?denies.?nose bleeds?denies.?nasal congestion?denies.?ear ache?denies.?ear discharge denies.?ringing in ears?denies.?light sensitivity?denies.?eye pain?denies.?blurring?denies.?eye irritation?denies.?double vision?denies. vision loss?denies.?General/Constitutional:?Sweats:?Denies.?Fatigue?denies.?Sleep proble ms?denies.?Anorexia?denies.?Malaise?denies.?Weight loss?denies. Fatigue or Weakness?denies.?Fever or Chills?denies.?Cardiovascular:?Shortness of Breath w/lying flat?denies.?Lightheadedne ss/dizziness?denies.?Chest tightness/ heavy pressure?denies.?Swelling of legs, a nkles, or feet?denies.?Waking up with shortness of breath?denies.?Chest pain&#16 0;denies.?Palpitations?denies.?Weight gain?denies.?Respiratory:?Chronic or frequent cough?denies.?Coughing up blood&#1 60;denies.?Difficulty breathing?denies.?Productive cough?denies.?Snoring&#1 60;denies.?Shortness of breath that awakens from sleep (PND)?denies.?Chest pain? denies.?Sputum production?denies.?Wheezing?denies.?Musculoskeletal:?Joint pain?denies.?Joint Fluid?denies.?Backpain?denies.?Knee pain?denies.?Neck pain?denies.?Joint Stiffness?denies.?Muscle cramps?denies.?Weakness of muscles?denies.?Arthritis?denies.?Muscle aches?denies.?Pain in shoulder(s)?denies.?Swollen joints?denies.? * Active Problem List M54.17 Radiculopathy, lumbo sacral region Modified On:03/10/2023W/U Status:cbfciteniV32.9Right knee DJD Modified On:04/19/2023U Status:iirfkpfguH19.362Other instability, left knee Modified On:09/06/2023U Status:mtewbbqisR94.122Complete rotator cuff tear or rupture of left shoulder, not specified as traumatic Modified On:09/21/2023U Status:spzydwuqxB83Xxhxzkbtzfeb Modified On:11/11/2023U Status:lzlulodziV07.652History of left knee replacement Modified On:12/20/2023U Status:wfxtqmghuV41.9Hypothyroid Modified On:12/20/2023 Status:equziibioX71.00Hypercholesteremia Modified On:12/20/2023 Status:lvyemfaxtY93UTR (hypertension) Modified On:12/20/2023 Status:esdugufgxA89.9GERD (gastroesophageal reflux disease) Modified On:12/20/2023 Status:hltasqaqeO76.00Insomnia Modified On:12/20/2023U Status:sbhojcuhzQ43.39Hemifacial spasm Modified On:01/30/2024U Status:belmchnyjU08.5Blepharospasm Modified On:01/30/2024U Status:atkwvezqwA01.80Osteopenia Modified On:12/21/2024U Status:bauyekphrG05.061Lumbar stenosis Modified On:09/03/2025 Status:confirmed * Medical History: * Surgical History: T onsilectomy Removal Plantar's Wart- Right Foot Removal Cyst Top of Head Ganglion Cyst- Right Hand Removal Celanzion Eyelid Removal Sebaceous Cyst from Back Ganglion Cyst- Left Hand D & C X 2 Abdominal Ablation Hysterectomy Orthoscopic Surgery- Right Knee Posterior Lumbar Interbody Fusion Knee Arthroplasty- Left Knee Hip Replacement- Right Cataract Removal- Bilateral Bone Marrow Biopsy Ureathal Stretch Left total knee arthroplasty- Dr. Borden 11/30/2023 * Hospitalization/Major Diagno stic Procedure: s ee above * Family History: F ather: , cancer, arthritis. M other: , Heart Disease, macular degeneration, arthritis, diagnosed with Heart Disease. B johana(s): alive, arthritis. S deborah(s): alive, thyroid cancer, type II diabetes, arthritis, cataract, Spinal stenosis, macular degeneration, diagnosed with Cancer, Diabetes. * Social History: ???Tobacco Use:?Tobacco Use/Smoking?Patient is a?nonsmoker * Medications: T akingAmoxicillin-Pot Clavulanate 875-125 MG Tablet 4 tablet Orally 4 hours before procedure As needed, Notes to Pharmacist: PRNArava(Leflunomide) 20 MG Tablet 1 tablet Orally Once a day Betamethasone Dipropionate 0.05 % Lotion 1 application Externally Twice a day As neededBiotin 5000 MCG Tablet Sublingual two tablets Sublingual twice a day Calcium + D(Calcium-Vitamin D-Vitamin K) 500-1000-40 MG-UNT-MCG Tablet Chewable 2 1/2 Orally Daily Carvedilol 25 MG Tablet TAKE 1 TABLET BY MOUTH TWICE A DAY FOR 30 DAYS Diclofenac Sodium 1 % Gel External Doxazosin Mesylate 4 MG Tablet 1 tablet Once a day Folic Acid 1 MG Tablet 1 tablet Orally Once a day Glucosamine 1500 Complex(Ddmfypxqzrb-Omvtuurih-Wyq C-Mn) - Capsule as directed Orally Hydroxychloroquine Sulfate 200 MG Tablet as directed Orally Twice Daily Ibandronate Sodium 150 MG Tablet 1 tablet 60 minutes before the first food, beverage or medicine of the day with plain water Orally once monthly Lisinopril 40 MG Tablet TAKE 1 TABLET BY MOUTH EVERY DAY Methotrexate 2.5 MG Tablet 5 tablets Orally on Tuesday methylPREDNISolone 4 MG Tablet 1 tablet with food or milk Orally every 12 hrs As needed, Notes to Pharmacist: PRNMulti Vitamin - Tablet 1 tablet Orally Once a day Pantoprazole Sodium 40 MG Tablet Delayed Release TAKE 1 TABLET BY MOUTH EVERY DAY predniSONE 5 MG Tablet 2-3 tablets Orally as needed , Notes to Pharmacist: PRNPregabalin 25 MG Capsule 1 capsule Orally dx M48.061 Twice Daily tiZANidine HCl 4 MG Tablet 1 tablet as needed Orally at bedtime traMADol HCl 50 MG Tablet 1 tablet as needed Orally dx M48.061 tid Triamterene-HCTZ 37.5-25 MG Tablet 1 tablet in the morning Orally Once a day , Notes to Pharmacist: PRNTurmeric 500 MG Capsule as directed Orally , Notes to Pharmacist: Unknown DosageTylenol Arthritis Pain , Notes to Pharmacist: PRNVitamin C 1000 MG Tablet 1 tablet Orally Once a day Medication List reviewed and reconciled with the patientTaking Amoxicillin-Pot Clavulanate 875- 125 MG Tablet 4 tablet Orally 4 hours before procedure As needed, Notes to Pharmacist: PRNTaking Arava(Leflunomide) 20 MG Tablet 1 tablet Orally Once a day Taking Betamethasone Dipropionate 0.05 % Lotion 1 application Externally Twice a day As neededTaking Biotin 5000 MCG Tablet Sublingual two tablets Sublingual twice a day Taking Calcium + D(Calcium-Vitamin D-Vitamin K) 500-1000-40 MG-UNT-MCG Tablet Chewable 2 1/2 Orally Daily Taking Carvedilol 25 MG Tablet TAKE 1 TABLET BY MOUTH TWICE A DAY FOR 30 DAYS Taking Diclofenac Sodium 1 % Gel External Taking Doxazosin Mesylate 4 MG Tablet 1 tablet Once a day Taking Folic Acid 1 MG Tablet 1 tablet Orally Once a day Taking Glucosamine 1500 Complex(Qzrdxqoxqai-Thncsqiyg-Mly C- Mn) - Capsule as directed Orally Taking Hydroxychloroquine Sulfate 200 MG Tablet as directed Orally Twice Daily Taking Ibandronate Sodium 150 MG Tablet 1 tablet 60 minutes before the first food, beverage or medicine of the day with plain water Orally once monthly Taking Lisinopril 40 MG Tablet TAKE 1 TABLET BY MOUTH EVERY DAY Taking Methotrexate 2.5 MG Tablet 5 tablets Orally on Tuesday Taking methylPREDNISolone 4 MG Tablet 1 tablet with food or milk Orally every 12 hrs As needed, Notes to Pharmacist: PRNTaking Multi Vitamin - Tablet 1 tablet Orally Once a day Taking Pantoprazole Sodium 40 MG Tablet Delayed Release TAKE 1 TABLET BY MOUTH EVERY DAY Taking predniSONE 5 MG Tablet 2-3 tablets Orally as needed , Notes to Pharmacist: PRNTaking Pregabalin 25 MG Capsule 1 capsule Orally dx M48.061 Twice Daily Taking tiZANidine HCl 4 MG Tablet 1 tablet as needed Orally at bedtime Taking traMADol HCl 50 MG Tablet 1 tablet as needed Orally dx M48.061 tid Taking Triamterene-HCTZ 37.5-25 MG Tablet 1 tablet in the morning Orally Once a day , Notes to Pharmacist: PRNTaking Turmeric 500 MG Capsule as directed Orally , Notes to Pharmacist: Unknown DosageTaking Tylenol Arthritis Pain , Notes to Pharmacist: PRNTaking Vitamin C 1000 MG Tablet 1 tablet Orally Once a day Medication List reviewed and reconciled with the patient * Allergies: O xcarbazepine: ConfusionGabapentin: NauseaGralise: Blistered SkinAlendronate Sodium: IndigestionBactrim: Muscle Weaknessno[Allergies Verified] Objective: * Vitals: W t:224.0lbs, Ht: 68 in, BP:158/98mm Hg, BMI:34.06Index, Ht-cm: 172.72 cm, Wt-k.61 kg. * Examination: ???Physical Exam: ?GENERAL:?well developed, well nourished, in no acute distress.?HEAD:?normocephalic/atraumatic.?EYES:?pupils equal, round and reactive to light, conjunctivae and sclerae normal.?EARS:?no deformity or lesion of external ear, canals and TM appear normal bilaterally, TM's intact, not inflamed with normal light reflex, hearing grossly normal to conversational speech.?NOSE:?no deformity, discharge, inflammation, or lesions. ?MOUTH:?mucous membranes moist, normal oropharynx and posterior pharynx without lesions or exudates, tongue normal, dentition normal.?NECK:?neck supple, no masses or palpable cervical nodes, trachea midline, thyroid without nodules, masses, tenderness, or enlargement.?CHEST:?no chest wall deformity, no chest wall tenderness. ?LUNGS:?normal respiratory effort and clear to auscultation, no wheezes, rales, or rhonchi, good air exchange.?CARDIO:?regular rate and rhythm, normal S1 and S2, nor murmur, rub, or gallop.?PULSES:?normal capillary refill.?ABDOMEN:?soft, non-distended, non-tender, no masses.?MUSCULOSKELETAL:?no deformity or scoliosis noted, normal range of motion, joints normal, no erythema, edema, effusion, or ecchymosis.?EXTREMITY:?no clubbing, cyanosis, edema, or deformity withnormal ROM in both upper and lower bilateral extremities.?NEUROLOGIC:?grossly normal.?SKIN:?no rashes, ulcerations, or suspicious lesions.?LYMPH NODES:?no cervical adenopathy, nodes normal.?MENTAL STATUS:?alert and oriented x3, normal mood and affect.? Assessment: * Assessment: 1.?Hypertension - I10 (Primary)???2.?Hypothyroid - E03.9???3.?Hypercholesteremia - E78.00???4.?GERD (gastroesophageal reflux disease) - K21.9???5.?Insomnia - G47.00???6.?Radiculopathy, lumbosacral region - M54.17??? Plan: * Treatment: Stop Amoxicillin-Pot Clavulanate Tablet, 875-125 MG, 4 tablet, Orally, 4 hours before procedure As needed, Notes to Pharmacist: PRN.?LAB: HEMOGLOBIN A1C (GLYCO) ?LAB: IRON, TOTAL ?LAB: LIPID PANEL (CHOL/TRIG/HDL/LDL) ?LAB: VITAMIN D, 25 LEVEL (TOTAL) ?LAB: THYROID PANEL (T4/TSH/FREE T3) ?LAB: CMP (COMP MET REYNA) w/eGFR CKD-EPI ?LAB: CBC WITH DIFF Notes: borderline elevation at home - keep meds same??2.?Hypothyroid?LAB: HEMOGLOBIN A1C (GLYCO) ?LAB: IRON, TOTAL ?LAB: LIPID PANEL (CHOL/TRIG/HDL/LDL) ?LAB: VITAMIN D, 25 LEVEL (TOTAL) ?LAB: THYROID PANEL (T4/TSH/FREE T3) ?LAB: CMP (COMP MET REYNA) w/eGFR CKD-EPI ?LAB: CBC WITH DIFF3.?Hypercholesteremia?LAB: HEMOGLOBIN A1C (GLYCO) ?LAB: IRON, TOTAL ?LAB: LIPID PANEL (CHOL/TRIG/HDL/LDL) ?LAB: VITAMIN D, 25 LEVEL (TOTAL) ?LAB: THYROID PANEL (T4/TSH/FREE T3) ?LAB: CMP (COMP MET REYNA) w/eGFR CKD-EPI ?LAB: CBC WITH DIFF4.?GERD (gastroesophageal reflux disease)?LAB: HEMOGLOBIN A1C (GLYCO) ?LAB: IRON, TOTAL ?LAB: LIPID PANEL (CHOL/TRIG/HDL/LDL) ?LAB: VITAMIN D, 25 LEVEL (TOTAL) ?LAB: THYROID PANEL (T4/TSH/FREE T3) ?LAB: CMP (COMP MET REYNA) w/eGFR CKD-EPI ?LAB: CBC WITH DIFF5.?Insomnia?LAB: HEMOGLOBIN A1C (GLYCO) ?LAB: IRON, TOTAL ?LAB: LIPID PANEL (CHOL/TRIG/HDL/LDL) ?LAB: VITAMIN D, 25 LEVEL (TOTAL) ?LAB: THYROID PANEL (T4/TSH/FREE T3) ?LAB: CMP (COMP MET REYNA) w/eGFR CKD-EPI ?LAB: CBC WITH DIFF * Procedure Codes: * Preventive Medicine: ??Screenings/Counseling:?BMI ACTION PLAN?Above Normal BMI Follow-up?Dietary management education, guidance, and counseling * * Sign off status: CompletedVisit Status:?CHK (Check Out) true * Provider: Zaira Hoyos ([facility])MD Date: 1 Generated for Printing/Faxing/eTransmitting on:?09/11/2025 08:11 AM EST History and Physical Notes * HPI (History of Present Illness) CategorySub-CategoryDetailNotesCategory NotesGeneral disucsced low back pain htn - up at [facility] at the no SE Examination CategorySub-CategoryDetailNotesCategory NotesPhysical ExamGENERAL:well developed, well nourished, in no acute distressHEAD:normocephalic/atraumatic EYES:pupils equal, round and reactive to light, conjunctivae and sclerae normal EARS:no deformity or lesion of external ear, canals and TM appear normal bilaterally, TM's intact, not inflamed with normal light reflex, hearing grossly normal to conversational speechNOSE:no deformity, discharge, inflammation, or lesionsMOUTH:mucous membranes moist, normal oropharynx and posterior pharynx without lesions or exudates, tonguenormal, dentition normalNECK:neck supple, no masses or palpable cervical nodes, trachea midline, thyroid without nodules, masses, tenderness, or enlargementCHEST:no chest wall deformity, no chest wall tendernessLUNGS:normal respiratory effort and clear to auscultation, no wheezes, rales, or rhonchi, good air exchangeCARDIO:regular rate and rhythm, normal S1 and S2, nor murmur, rub, or gallopPULSES:normal capillary refillABDOMEN:soft, non-distended, non-tender, no massesRECTAL:MUSCULOSKELETAL:no deformity or scoliosis noted, normal range of motion, joints normal, no erythema, edema, effusion, or ecchymosisEXTREMITY:no clubbing, cyanosis, edema, or deformity with normal ROM in both upper and lower bilateral extremitiesNEUROLOGIC:grossly normalSKIN:no rashes, ulcerations, or suspicious lesionsLYMPH NODES:no cervical adenopathy, nodes normalMENTAL STATUS:alert and oriented x3, normal mood and affect
--- OUTSIDE RECORDS SUMMARY | 2025-09-03 05:52 | XMS_ITS ---
Author Organization [facility] in [place] Address [address] [place] [address] Care Team Providers Care Gas Producer Name Role Phone Soha Howard Primary Care Provider [phone] Reason For Referral Diagnosis 1 Lumbar stenosis (M48 .061) Referral Organization [facility] Referring Provider First Name Howard Referring Provider Last Name Soha [facility]erring [facility] icimarianela Referred Provider Victoriano Harley Referred Provider Specialty Neurosurgery Referral Priority Routine REASON FOR VISIT referral Problems Problem Type SNOMED Code ICD Code Onset Dates Problem Status W/U Status Risk Notes Problem Lumbar spinal stenosis (90112347) Lumbar stenosis (M48.061) Activeconfirmed Encounters Encounter Location Date Provider Diagnosis [facility] [address] [facility] [place] [address] 09/03/2025 Howard Hoyos Lumbar stenosis M48.061 Assessments Encounter Date Diagnosis (ICD Code) Assessment Notes Treatment Notes Treatment Clinical Notes Section Notes 09/03/2025 Lumbar stenosis (ICD-10 - M48.06 1) Plan Of Treatment Referrals Referral Date Details 09/03/2025 09/03/2025Victoriano Progress Notes * Danyelle CHRISDOB:1955 (70 yo F)Acc No.[id number]:09/03/2025 Patient:?Danyelle CHRIS :1955???Age:70 Y???Sex:FemalePhone:[phone] Address:[address] [place] [address] [place], [address] Subjective: * Chief Complaints: * R eferral * Medical History: * Surgical History: * Hospitalization/Major Diagno stic Procedure: * Medications: Objective: * Vitals: * Physical Examination: ??? Assessment: * Assessment: 1.?Lumbar stenosis - M48.061 (Primary)??? Plan: * Treatment: ? Referral To:Victoriano Harley??Neurosurgery ?Reason: * Procedure Codes: * true * Date:?Generated for Printing/Faxing/eTransmitting on:?09/11/2025 08:13 AM EST Consultation Request Notes Referral Date Referring Provider Referred Provider Not es 09/03/2025 Howard Hoyos [place]
--- OUTSIDE RECORDS SUMMARY | 2025-09-05 07:30 | XMS_ITS | Encounter Summary ---
Author Organization [facility] Address [address] [place] [address] Care Team Providers Care Engineer Technical Staff Name Role Phone Stevie Hoyos MD Primary Care Provider [phone] Gaby Christianson NP Unavailable Unavailable Celso Delatorre MD Unavailable Reason for Visit * ReasonCommentsToenail Care Encounter Details DateTypeDepartmentCare Team (Latest Contact Info)Mbjiuudoeqa59/30/2025 8:30 AM EDTProcedure Visit [facility] [address] [facility] [address] [place] [address] Elie Tello, DPKeri [address] [facility] [address] [place] [address] Other polyneuropathy (Primary Dx); Pain due to onychomycosis of toenails of both feet Social History Tobacco UseTypesPacks/DayYears UsedDateSmoking Tobacco: NeverSmokeless Tobacco: Never Tobacco Cessation:Counseling Given: Yes Alcohol UseStandard Drinks/WeekCommentsDefer0 (1 standard drink = 0.6 oz pure alcohol)Caffeine: Current some daysCommentsUnknownSex and Gender InformationValueDate RecordedSex Assigned at FlxaqLrfrbb21/24/2023 3:52 PM EDT Legal WcnUqqeuq99/01/2023 8:32 PM EDTGender ZxmvrhhvAwgpnq47/24/2023 3:52 PM EDT Sexual TvcmythdvebQqamnnvo92/24/2023 3:52 PM EDTdocumented as of this encounter Last Filed Vital Signs Vital SignReadingTime TakenCommentsBlood Pressure--Pulse--Temperature-- Respiratory Ewbk1827 8:25 AM EDTOxygen Saturation--Inhaled Oxygen Concentration--Lkaddi277 kg (222 lb)09/05/2025 8:25 AM OWAUuxqxn809.7 cm (5' 8 ) 09/05/2025 8:25 AM EDTBody Mass Index33.7509/05/2025 8:25 AM EDTdocumented in this encounter Progress Notes * Elie Tello DPM - 09/05/2025 8:30 AM EDT Patient: Danyelle Chris : 1955 PCP: Stevie Hoyos MD SUBJECTIVE This is a 70 y.o. female that presents today with a [...] mouth in the morning., Disp: , Rfl: Hsgwpgnmlxn-Ahdkkpcpi-Jyt C-Mn (Glucosamine 1500 Complex) capsule, as directed [...] Insecurity: No Food Insecurity (11/29/2023) Received from [facility] Hunger Vital Sign Within the past 12 months, you worried that your food would run out before you got the money to buymore.: Never true Within the past 12 months, the food you bought just didn't last and you didn't have money to get more.: Never true Transportation Needs: No Transportation Needs (11/29/2023) Received from [facility] PRAPARE - Transportation Lack of Transportation (Medical): No Lack of Transportation (Non-Medical): No Physical Activity: Not on file Stress: Not on file Social Connections: Not on file Intimate Partner Violence: Not on file Housing Stability: Low Risk (11/29/2023) Received from [facility] Housing Stability Vital Sign Unable to [...] toes and right 1,2,3,4,5 toes ASSESSMENT 1. Other polyneuropathy 2. Pain due to onychomycosis of toenails of both feet PLAN Discussed proper foot care with patient today. Debride nails in length and thickness digits 1 through 10 Elie Tello DPM documented in this encounter Plan of Treatment DateTypeDepartmentCare Team (Latest Contact Info)Nlxuaejcmho84/22/2026 8:30 AM ESTProcedure Visit [facility] [address] [facility] [address] [place] [address] Elie Tello DPM [address] [facility] [address] [place] [address] 02/19/2026 9:00 AM EDTOffice Visit [facility] [address] [place] [address] Yo Gilmore DO [address] [place] [address] documented as of this encounter Visit Diagnoses Diagnosis Other polyneuropathy- Primary Pain due to onychomycosis of toenails of both feet documented in this encounter Care Teams Team MemberRelationshipSpecialtyStart DateEnd Stevie Hoyos MD [address] [place] [address] PCP - General07/06/23 Gaby Christianson NP [address] [place] [address] Nurse PractitionerNeurology01/26/24 Celso Delatorre MD [address] [facility] [address] [place] [address] Referring PhysicianRheumatology07/31/24documented as of this encounter
--- OUTSIDE RECORDS SUMMARY | 2025-09-11 08:11 | XMS_ITS | Encounter Summary ---
Author Organization [facility] Address [address] [place] [address] Care Team Providers Care License Examiner Name Role Phone Stevie Hoyos MD Primary Care Provider [phone] Gaby Christianson NP Unavailable Unavailable Celso Delatorre MD Unavailable [phone] Encounter Details DateTypeDepartmentCare Team (Latest Contact Info)Shnccklzgbx15/30/2025Bamboo flowsheet [facility] [address] [facility] [address] [place] [address] Elie Tello, DPKeri [address] [facility] 5 [place] [address] Social History Tobacco UseTypesPacks/DayYears UsedDateSmoking Tobacco: NeverSmokeless Tobacco: NeverAlcohol UseStandard Drinks/WeekCommentsDefer0 (1 standard drink = 0.6 oz pure alcohol)Caffeine: Current some daysCommentsUnknownSex and Gender InformationValueDate RecordedSex Assigned at DpprqDjgwmn47/24/2023 3:52 PM EDT Legal JfwBqrvdx35/01/2023 8:32 PM EDTGender ZplyvqxgDinegs45/24/2023 3:52 PM EDT Sexual SulnxjzqvwtAfbpfajj58/24/2023 3:52 PM EDTdocumented as of this encounter Plan of Treatment DateTypeDepartmentCare Team (Latest Contact Info)Olwirplbriw91/22/2026 8:30 AM ESTProcedure Visit [facility] [address] [facility] [address] [place] [address] Elie Tello, DPKeri [address] [facility] 5 [place] [address] 02/19/2026 9:00 AM EDTOffice Visit [facility] [address] [place] [address] Yo [place], DO [address] [place] [address] documented as of this encounter Visit Diagnoses Not on filedocumented in this encounter Care Teams Team MemberRelationshipSpecialtyStart DateEnd Date Stevie Hoyos MD [address] [place] [address] PCP - General07/06/23 Gaby Christianson NP [address] [place] [address] Nurse PractitionerNeurology01/26/24 Celso Delatorre MD [address] [facility] Professional building 1 [place] [address] Referring PhysicianRheumatology07/31/24documented as of this encounter
--- OUTSIDE RECORDS SUMMARY | 2025-09-11 08:12 | XMS_ITS | Encounter Summary ---
Author Organization [facility] Address [address] [place] [address] Care Team Providers Care Parenting Skills Instructor Name Role Phone Stevie Hoyos MD Primary Care Provider [phone] Gaby Christianson NP Unavailable Unavailable Celso Delatorre MD Unavailable [phone] Encounter Details DateTypeDepartmentCare Team (Latest Contact Info)Lbzhvyednfq95/23/2025Travel Social History Tobacco UseTypesPacks/DayYears UsedDateSmoking Tobacco: NeverSmokeless Tobacco: NeverAlcohol UseStandard Drinks/WeekCommentsDefer0 (1 standard drink = 0.6 oz pure alcohol)Caffeine: Current some daysCommentsUnknownSex and Gender InformationValueDate RecordedSex Assigned at OuklbQsknbk68/24/2023 3:52 PM EDT Legal MrfRsfkex59/01/2023 8:32 PM EDTGender DulgwxohShltpz69/24/2023 3:52 PM EDT Sexual ZgxcpdskddrZwbknhqc44/24/2023 3:52 PM EDTdocumented as of this encounter Plan of Treatment DateTypeDepartmentCare Team (Latest Contact Info)Pucyjhnoyxi30/22/2026 8:30 AM ESTProcedure Visit [facility] [address] [facility] 120 [place] [address] Elie Tello, PK [address] [facility] 5 [place] [address] 02/19/2026 9:00 AM EDTOffice Visit [facility] Eye [address] [place] [address] Yo Gilmore, [address] [place] [address] documented as of this encounter Visit Diagnoses Not on filedocumented in this encounter Care Teams Team MemberRelationshipSpecialtyStart DateEnd Date Setvie Hoyos MD [address] [place] [address] PCP - General07/06/23 Gaby Christianson NP [address] [place] [address] Nurse PractitionerNeurology01/26/24 Celso Delatorre MD [address] [facility] Professional building [address] [place] [phone] Referring PhysicianRheumatology07/31/24documented as of this encounter
--- OUTSIDE RECORDS SUMMARY | 2025-09-11 08:12 | XMS_ITS | Clinical Summary ---
Author Organization [facility] Address [address] [place] [address] Care Team Providers Care Lifter/Driver Name Role Phone Yulisa Batres MD Primary Care Provider [phone] Gaby Christianson NP Unavailable Unavailable Celso Delatorre MD Unavailable [phone] Allergies Active AllergyReactionsCriticalityNoted DateCommentsAlendronateRashMedium 08/29/2018 Other Reaction(s): Abdominal Discomfort, Dyspepsia, Indigestion, Not available GabapentinNausea And Vomiting,Nausea Only,WjtuPirggr16/24/2018 Other Reaction(s): Not available Gabapentin (Once-Daily)High08/30/2018 Other Reaction(s): Allergy, Blistered Skin, Blisters, Not available Caused the skin on her lips to peel and nervousness Zhowurnthkab27/18/2023 Tendon rupture OxcarbazepineNausea And Vomiting,PfktRljfgi94/24/2018 Other Reaction(s): Confusion, Not available Sulfamethoxazole-Ivzyffpdfrto12/05/2021 Other Reaction(s): Joint pain, Muscle weakness, Myalgia [...] time each day at the same timeActive Mbyszyffuuq-Pztkykzjd-Fpw C-Mn (Glucosamine 1500 Complex) capsule as directed [...] methylPREDNISolone (Medrol Dospak) 4 MG tablets TAKE ENDMODOG15/17/2023ctive predniSONE (Deltasone) 5 MG tablet Take 5 [...] Active Problems ProblemNoted DateDiagnosed DateLong-term use of ajptulnxybqsnsaimh82/24/2024Left posterior capsular zhtizqcnadczs79/24/2387Kvajnjlkyarrh82/18/2024Trigeminal xvreelyqn22/18/2024rthritis, lumbar spine04/24/20248633Ctnpgsqaipts75/18/2024Facial ktzezlzi64/18/6355Mjersybbhs57/18/2024Spinal stenosis excluding cervical region 04/24/2024 Overview (04/24/2024): Lumbar region , without neurogenic claudication PVD (peripheral vascular disease)04/24/2024eripheral wimtbzdusn12/18/2024Small fiber axiihwbmpy09/18/3259Eyeueadatavoip33/18/2024 Overview (04/24/2024): The patient reports asymmetric paresthesias in the distal bilateral lower extremities (left more significant than right) which have not progressed since her prior appointment at [facility]. She has historically been diagnosed with polyneuropathy, [...] neuropathy - Fall precautions discussed Hemifacial spasm04/24/2024Lumbar xieboipgcqctx83/18/2024Spondylolisthesis 04/24/20245232Crqudaqe00/18/2024Muscle spasm04/24/2024Facet arthritis of lumbar wwqqti3504/24/20247872Dhtcrxvyj43/18/2024egenerative disc disease, tuwlcd4804/24/2024 Disturbance of skin zhiopheaw83/18/2024adiculopathy, lumbosacral region 04/24/2024Sciatica of left side04/24/2024Lumbar spinal krgzegau50/18/2024 Overview (04/24/2024): The patient has a history [...] note, she also follows with rheumatology Lumbar phvotooghze87/18/2024Lumbar facet modclpnrlmc77/18/2024aresthesias 04/24/2024 Overview (04/24/2024): The patient presents today [...] Problems ProblemNoted DateDiagnosed DateResolved DateBilateral posterior capsular naynivvwisvdk62/06/202309/ Encounters DateTypeDepartmentCare NmamRxsdqfghflo50/30/2025 8:30 AM EDTProcedure Visit [facility] [address] [place] [address] Elie Tello DPM Other polyneuropathy (Primary Dx); Pain due to onychomycosis of toenails of both feet09/05/2025amboo flowsheet [facility] [address] [place] [address] Elie Tello DPM 09/05/20255612Sehycq99/23/6989Inamlb92/14/2025 8:30 AM EDTProcedure Visit [facility] [address] [place] [address] Elie Tello DPM Pain due to onychomycosis of toenails of both feet (Primary Dx)06/20/2025amboo flowsheet [facility] [address] [facility] [address] [place] [address] Elie Tello DPM 06/20/20259795Uwsljl86/07/2025Travelfrom Last 3 Months Immunizations ImmunizationAdministration DatesNext DuePneumococcal [...] daysCommentsUnknownSex and Gender InformationValueDate RecordedSex Assigned at GcbsgBuejre93/24/2023 3:52 PM EDT Legal AahRxeorx36/01/2023 8:32 PM EDTGender HstvytyrEgprsf98/24/2023 3:52 PM EDT Sexual MgikkkpttgwFonjkukb11/24/2023 3:52 PM EDT Last Filed Vital Signs Vital SignReadingTime TakenCommentsBlood Jssfrzgb631/9804 9:15 AM EDT Rurps995502/28/2025 9:15 AM EDTTemperature--Respiratory Bxzw4013 8:25 AM EDTOxygen Jkopegsccz57%02/28/2025 9:15 AM EDTInhaled Oxygen Concentration-- Tcungu372 kg (222 lb)09/05/2025 8:25 AM LZQPykmet179.7 cm (5' 8 )09/05/2025 8:25 AM EDTBody Mass Index33.7509/05/2025 8:25 AM EDT Plan of Treatment DateTypeDepartmentCare Team (Latest Contact Info)Befwnfjehdm52/22/2026 8:30 AM ESTProcedure Visit [facility] [address] [facility] [address] [place] [address] Elie Tello, DPM [address] [facility] 5 [place] [address] 02/19/2026 9:00 AM EDTOffice Visit [facility] Eye [address] [place] [address] Yo Gilmore, DO [address] [place] [address] Health MaintenanceDue DateLast DoneCommentsCT Vwhbhmbbmhmo1953Colonoscopy 3Colorectal Cancer Cizzhtdzd1953FIT-DNA1953FIT1955 FOBT1955 3754Wcornrxitdbme1953DTaP/Tdap/Td Vaccines (1 - Tdap)1960 Codwbmebo312COVID-19 Vaccine ( season)2025 09/03/2024, 08/25/2023, 09/07/2021, Additional history existsInfluenza Vaccine (#1)51, 08/25/2023, 08/23/2022, Additional history exists Pneumococcal Vaccine: 65+ JfjtpJkulouewl30/18/2025, 09/11/2018HIB VaccinesAged OutNo longer eligible based on [...] Procedures Procedure NamePriorityDate/TimeAssociated DiagnosisCommentsBI MAMMOGRAM SCREENING TOMOSYNTHESIS RLBTXYEQCBxonodj67/25/2022 from Last 3 Months or Most Recently Relevant to Health Maintenance Results * Bilateral screening mammogram with tomosynthesis (08/31/2022)Anatomical Region LateralityModalityBreastBilateralMammographySpecimen (Source)Anatomical Location / LateralityCollection Method / VolumeCollection TimeReceived Time Narrative 08/31/2022 12:00 AM EDT PERFORMED AT [facility] LOCATION:[address] Patient: ? DIVINE Holden ? Exam Date: ? 08/31/2022 : ? 1955 ?Gender:F ? Ordering : ? DR JACK MURPHY . ? Admission #: ? [id number] Family : ? DR YULISA BATRES . ? Order #: ? [id number] ? CLICK HERE TO VIEW EXAM RADIOLOGY [...] cancer at age 48. LOCATION: ? [facility] BREAST COMPOSITION: ? Scattered areas [...] Note CONVERSION, GENERIC - 05/13/2023 PERFORMED AT [facility] LOCATION:[address] Patient: DIVINE Holden Exam Date: 08/31/2022 : 1955 Gender:F Ordering : DR JACK MURPHY . Admission #: [id number] Family : DR YULISA BATRES . Order #: [id number] CLICK HERE TO VIEW EXAM RADIOLOGY REPORT [...] withthyroid cancer at age 48. LOCATION: [facility] BREAST COMPOSITION: Scattered areas fibroglandular [...] on 08/31/2022 at 11:14 Authorizing ProviderResult TypeResult StatusGregkoby Murphy MDG BI PROCEDURES Final Result from Last 3 Months or Most Recently Relevant to Health Maintenance Insurance Care Teams Team MemberRelationshipSpecialtyStart DateEnd Yulisa Batres MD [address] [place] [address] PCP - General07/06/23 Gaby Christianson NP [address] [place] [address] Nurse PractitionerNeurology01/26/24 Celso Delatorre MD [address] [facility] Professional building [address] [place] [phone] Referring PhysicianRheumatology07/31/24
--- OUTSIDE RECORDS SUMMARY | 2025-09-11 08:12 | XMS_ITS | Encounter Summary ---
Author Organization [facility] Address [address] [place] [address] Care Team Providers Care Manager Discovery Name Role Phone Stevie Hoyos MD Primary Care Provider [phone] Gaby Christianson NP Unavailable Unavailable Celso Delatorre MD Unavailable Encounter Details DateTypeDepartmentCare Team (Latest Contact Info)Kcwrrbrggya04/30/2025Travel Social History Tobacco UseTypesPacks/DayYears UsedDateSmoking Tobacco: NeverSmokeless Tobacco: NeverAlcohol UseStandard Drinks/WeekCommentsDefer0 (1 standard drink = 0.6 oz pure alcohol)Caffeine: Current some daysCommentsUnknownSex and Gender InformationValueDate RecordedSex Assigned at KkvbjAjwzrx71/24/2023 3:52 PM EDT Legal ChtErupee68/01/2023 8:32 PM EDTGender JbfhzinpTozfat64/24/2023 3:52 PM EDT Sexual SlscdudltkbCzhesmmo55/24/2023 3:52 PM EDTdocumented as of this encounter Plan of Treatment DateTypeDepartmentCare Team (Latest Contact Info)Alamdiyotna51/22/2026 8:30 AM ESTProcedure Visit [facility] [address] [facility] [address] [place] [address] Elie Tello, PK [address] [facility] [address] [place] [address] 02/19/2026 9:00 AM EDTOffice Visit [facility] [address] [place] [address] Yo Gilmore, [address] [place] [address] documented as of this encounter Visit Diagnoses Not on filedocumented in this encounter Care Teams Team MemberRelationshipSpecialtyStart DateEnd Date Stevie Hoyos MD [address] [place] [address] PCP - General07/06/23 Gaby Christianson NP [address] [place] [address] Nurse PractitionerNeurology01/26/24 Celso Delatorre MD [address] [facility] Professional building [address] [place] [phone] Referring PhysicianRheumatology07/31/24documented as of this encounter
--- OUTSIDE RECORDS SUMMARY | 2025-09-11 08:13 | XMS_ITS | Patient Health Record ---
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
--- OUTSIDE RECORDS SUMMARY | 2025-09-11 08:13 | XMS_ITS | Clinical Summary ---
Author Organization [facility] Address [address] [place] [address] Care Team Providers Care Wax Pot Tender Name Role Phone Unavailable Primary Care Provider Unavailabl e Social History Tobacco UseTypesPacks/DayYears UsedDateSmoking Tobacco: Never Assessed CommentsUnknownSex and Gender InformationValueDate RecordedSex Assigned at Not on fileLegal FydIhvoia53/29/2022 10:00 PM EDTGender IdentityNot on file Sexual OrientationNot on file Last Filed Vital Signs Vital SignReadingTime TakenCommentsBlood Pressure--Pulse--Temperature-- Respiratory Rate--Oxygen Saturation--Inhaled Oxygen Concentration--Wlhplr37.9 kg (218 lb)03/10/2020 1:17 PM SABSkoipr554.7 cm (5' 8 )03/24/2020 10:45 AM EDTBody Mass Index33.15003/10/2020 1:17 PM EDT Plan of Treatment Not on file
--- OUTSIDE RECORDS SUMMARY | 2025-09-11 08:14 | XMS_ITS | Clinical Summary ---
[facility] Organization [facility] Address [address] [place] [address] Care Team Providers Care Dumpman Name Role Phone Stevie Hoyos MD Primary Care Provider [phone] Allergies Active AllergyReactionsCriticalityNoted DateCommentsAlendronateAbdominal Discomfort,ToaezwtywHplgdx57/24/2018Sulfamethoxazole-TrimethoprimMyalgia 03/11/20216389VpfpjulmduxlsDiap17/18/2023 Other reaction(s): Allergy critical , tendon rupture GabapentinNausea and BmzkflnbHvinth22/24/2018Gabapentin (Once-Daily)BlistersHigh 08/30/2018 Caused the skin on her lips to peel and nervousness Vykrcgbzlcoy25/18/2023 Tendon rupture OxcarbazepineNausea and HbzoiljcMshbtz43/24/2018SulfamethoxazoleWeakness 05/07/20210467JvdjgjeamolgOqpeueou22/01/2021 Medications MedicationSigDispense QuantityRefillsLast FilledStart DateEnd DateStatus ibandronate [...] times daily October 01, 2020 10:38am 10-01-2020 [facility] ([id number])10/01/2020Active Doxazosin 4 MG tablet Take 1 tablet [...] tablet Take 1 tablet by mouth daily.Active Zlnjfrjohoi-Jeeuhdzrd-Mmr C-Mn (Glucosamine 1500 Complex) capsule Take by [...] Active Problems ProblemNoted DateDiagnosed DateS/P total knee roesttbnwrgz61/ Osteoarthritis of right knee04/26/2023ellulitis of left llqxtb3604/20/2023 04/20/2023hronic zajahzfb05Hyperlipidemia Syexyowtfevknby98Raynaud's dvdpvuvele04 Undifferentiated connective tissue mmwmwdn93ain in left knee 11/21/2018 Assessment & Plan (11/21/2018 11:49 AM EST): For likely surgical intervention PT OT healthcare social worker discharge planning DVT prophylaxis per orthopedic surgery recommendation Synovial iekjhq0111/21/2018Obesity: body mass index of 30.0-34.9007/19/2017 Assessment & Plan (11/21/2018 11:48 AM EST): Lifestyle changes and dietary modifications Patellar tendon dtphhjz7407/19/2017Benign btxeddfregaq75/12/2017 Assessment & Plan (11/21/2018 11:49 AM EST): Continue outpatient therapy Add when necessary for systolic blood pressure greater than 160 Rheumatoid mklfxpazb66/12/2017 Assessment & Plan (11/21/2018 11:49 AM EST): [...] steady place to sleep or slept in [place] (including now)?No11/29/2023CommentsUnknownSex and Gender InformationValueDate RecordedSex Assigned at BirthNot on fileLegal SexFemale 01/04/2017 4:08 PM ESTGender IdentityFemaleSexual WtiimnxxjmbJbppgziq61/19/2025 8:16 AM EST Last Filed Vital Signs Vital SignReadingTime TakenCommentsBlood Kcswhqlj732/61012/02/2023 7:33 AM EST Fsqny751012/02/2023 7:33 AM PDKXltrkeyexow19.4 ??C (97.5 ??F)05/31/2024 9:44 AM EDTRespiratory Bvde749512/02/2023 7:33 AM ESTOxygen Sriezziimn00%12/02/2023 8:00 AM ESTInhaled Oxygen Concentration--Fwgdyj084 kg (236 lb)11/28/2024 11:19 AM EST Vgjpfr111.2 cm (5' 7 )11/28/2024 11:19 AM ESTBody Mass Index36.9611/28/2024 11:19 AM EST Plan of Treatment DateTypeDepartmentCare Team (Latest Contact Info)Nahrbztxgen94/21/2026 10:00 AM ESTOffice Visit [facility] [address] [facility] [place] [address] New Borden MD [address] [place] [address] Dakota Green APRN-AMRTY [address] [place] [address] Health MaintenanceDue DateLast DoneCommentsDEXA SCAN TRAZNERJQP1953 HEPATITIS C VIRUS TYCZPGNAV12/12/5384SJDXAKR1953TDAP (ADULT)1972 CERVICAL CANCER SCREENING VRXTUCTGNE28/12/1974LIPID JJMURHBLK83/12/1993 COLORECTAL CANCER SCREENING WSRYXBCBFW62/12/1998ZOSTER (SHINGLES) VACCINE (1 of 2)2003MAMMOGRAM SCREENING IHXMGAWXCX00/25/202310/OTASSIUM 5012/01/2023, 11/30/2023, 11/03/2023, Additional history existsCOVID-19 VACCINE (2024- season), 08/25/2023, 08/23/2022, Additional history existsINFLUENZA VACCINE (#1), 08/25/2023, 08/23/2022, Additional history existsRSV VACCINE (1 - 1-dose 75+ series) 2028PNEUMOCOCCAL VACCINE IQEPECYkjigmgis84/18/2025, 09/11/2018HEP B VACCINEAged OutNo longer eligible based on patient's age to complete this topic Medical Devices ImplantedTypeAreaManufacturerDevice IdentifierShelf Expiration DateModel / Serial / LotProlite Mesh 25.4 Cm X 35.5cm Implanted:Qty: 1 on 11/21/2018 by New Borden MD at [facility] Left: JltwAQYEYZ34/25/2023/ [id number] / [id number] Knee System Revision Distal Femoral Augment Size 7 12mm Cemented Implanted:Qty: 1 on 11/29/2023 by New Borden MD at [facility] Left: KneeDEPUY ORTHOPAEDICS INC//[id number] / / [id number] Mesh Polypropylene Nonabsorbable Synthetic Surgical Mesh 12 X 12 Implanted:Qty: 1 on 11/29/2023 by New Borden MD at [facility] Left: Knee09/06/2027/ / [id number] [facility] Knee System Revision Pressfit Stem 12mm X 60mm Implanted:Qty: 1 on 11/29/2023 by New Borden MD at [facility] Left: KneeDEPUY ORTHOPAEDICS INC04/06/[id number] / / [id number] Knee System Revision Distal Femoral Augment Size 7 12mm Cemented Implanted:Qty: 1 on 11/29/2023 by New Borden MD at [facility] Left: KneeDEPUY ORTHOPAED[employer] INC05/06/[id number] / / [id number] Knee System Revision Tibial Base Rotating Platform Size 5 Cemented Implanted:Qty: 1 on 11/29/2023 by New Borden MD at [facility] Left: KneeDEPUY ORTHOPAED[employer] INC06/06/[id number] / / [id number] Knee System Revision Tibial Sleeve Poracoat Partially Coated 37mm Implanted:Qty: 1 on 11/29/2023 by New Borden MD at [facility] Left: KneeDEPUY ORTHOP[employer]//[id number] / / [id number] Knee System Revision Femoral Sleeve Porocoat Partially Coated 40mm Implanted:Qty: 1 on 11/29/2023 by New Borden MD at [facility] Left: KneeDE[employer]//[id number] / / [id number] Knee System Revision Posterior Femoral Augment Size 7 4mm Cemented Implanted:Qty: 2 on 11/29/20[facility] Left: KneeDEPUY ORTHOPAEDICS [id number] / / [id number] Knee System Revision Crs Femoral Size 7 Left Cemented Implanted:Qty: 1 on 11/29/2023 by New Borden MD at [facility] Left: KneeDEPUY ORTHOPAEDICS [id number] / / [id number] R 1x40 Single - [id number] Implanted:Qty: 1 [facility]/21/[facility]/ / [id number] R+G 1x40 Single With Gentamicin - [id number] Implanted:Qty: 4 on 11/29/20[id number] / / [id number] R 1 X 40 - [id number] Implanted:Qty: 2 on 04/26/2023 by New Borden MD at [facility]: Knee 10/06/2027/ [id number] / [id number] Knee System Revision Tibial Base Fixed Bearing Implanted:Qty: 1 on 04/26/2023 by New Borden MD at [facility]: Knee DEPUY XPDCMPN4811/06/2032/ 1506-40-005 / [id number] Femoral Posterior Stabilized Implanted:Qty: 1 on 04/26/2023 by New Borden MD at [facility]: Knee DEPUY XYCFONE1209/06/2032/ 1504-10-207 / [id number] Patella Medialized Dome Implanted:Qty: 1 on 04/26/2023 by New Borden MD at [facility]: Knee DEPUY ZVEZYAW5009/06/2027/ 1518-20-038 / [id number] Cancellous Bone Screw Implanted:Qty: 1 on 04/26/2023 by New Borden MD at [facility]: Knee DEPUY MLCDRQB6003/06/2027/ 1217-25-500 / [id number] Tibial Insert Fixed Bearing Posterior Stabilized Implanted:Qty: 1 on 04/26/2023 by New Borden MD at [facility]: Knee DEPUY IAEGVCM7806/06/2027/ 1516-40-708 / [id number] Knee System Revision Pressfit Stem Implanted:Qty: 1 on 11/29/2023 by New Borden MD at [facility]: Knee DEPUY MKVBMDF0402/05/2032/ 1513-16-060 / [id number] R & G Bone Cement High-Viscosity With Gentamicin - [id number] Implanted:Qty: 1 on 11/29/2023 by New Borden MD at [facility]: Knee 01/04/2026/ [id number] / [id number] Knee System Revision Crs Rotating Platform Insert Implanted:Qty: 1 on 11/29/2023 by New Borden MD at [facility]: Knee DEPUY GCLFGWF0304/06/2028/ 1517-10-712 / [id number] Procedures Procedure NamePriorityDate/TimeAssociated DiagnosisCommentsBASIC METABOLIC PANEL Today12/01/2023 4:51 AM EST from Last 3 Months or Most Recently Relevant to Health Maintenance Results * (ABNORMAL) BASIC METABOLIC PANEL (12/01/2023 4:51 AM EST)ComponentValueRef RangeTest MethodAnalysis TimePerformed AtPathologist IfifawdvjWgmekcr656(H)70 - 100 MG/DL[address]Comment: NORMAL <100 mg/dL PREDIABETES 101-126 mg/dL DIABETES 126 mg/dL or higher JNL895 - 20 MG/DL[address] CREATININE SERUM0.50(L)0.70 - 1.20 MG/DL[address]SODIUM136(L)137 - 145 MMOL/[address]assium3.4(L)3.5 - 5.1 MMOL/[address]CHLORIDE10698 - 107 MMOL/[address]Comment:Please note: Triglyceride levels of 600mg/dL or higher may positively bias chloride results by approximately 2.1 mmolCARBON DIOXIDE (CO2)2322 - 30 MMOL/[address]AN[address] TJF2SIQL/[address]CALCIUM8.48.4 - 10.2 MG/DL[address]ESTIM[address] GFR, NON JFSH610 ml/min/1.73sq.[address]ESTIMATED GFR, KHCTMYRT346ll/min/1.73sq.[address]GFR COMMENTAverage GFR for 70+ years old = 75.[address]Comment: Chronic Kidney disease, GFR = <60. Kidney failure, GFR = <15. The GFR estimate is not adjusted for extreme body surface area or acute process, nor has it been validated for women or ethnic groups other than and . Specimen (Source)Anatomical Location / LateralityCollection Method / Volume Collection TimeReceived VbqvUhrcr88/25/2024 4:51 AM EST12/01/2023 5:27 AM EST Narrative Authorizing ProviderResult TypeResult StatusDeshawn Sunshine MDCHEMISTRY ORDERABLES Final ResultPerforming OrganizationAddressCity/State/ZIP CodePhone Number [address] [address] from Last 3 Months or Most Recently Relevant to Health Maintenance Insurance Advance Directives For more information, please contact: [phone] (7:30 AM - 6PM [facility], Tuesday-Tuesday) * Full Code (Latest Code Status [...]
--- OUTSIDE RECORDS SUMMARY | 2025-09-11 08:14 | XMS_ITS | Clinical Summary ---
Author Organization [facility] Address [address] [place] [address] Phone Care Team Providers Care Luggage Liner Name Role Phone Unavailable Primary Care Provider Unavailabl e Social History Tobacco UseTypesPacks/DayYears UsedDateSmoking Tobacco: Never Assessed CommentsUnknownSex and Gender InformationValueDate RecordedSex Assigned at Not on fileLegal XezMgxygn40/25/2022 11:02 AM ESTGender IdentityNot on file Sexual OrientationNot on file Plan of Treatment Not on file
--- OUTSIDE RECORDS SUMMARY | 2025-09-11 08:14 | XMS_ITS | Clinical Summary ---
Author Organization [facility] Address [address] [place] [address] Care Team Providers Care Playground Worker Name Role Phone Stephen Begum Primary Care Provider + [phone] Medications MedicationSigDispense QuantityRefillsLast FilledStart DateEnd DateStatus FOLBIC [...] Take 500 mg by mouth once daily.Active [place]-3 Fatty Acids-Vitamin E (FISH OIL) 1,000 mg cap Take 1 capsule by mouth.Active Social History Tobacco UseTypesPacks/DayYears UsedDateSmoking Tobacco: Never Assessed CommentsUnknownSex and Gender InformationValueDate RecordedSex Assigned at Not on fileLegal SjtXmtpau97/16/2016 2:47 PM ESTGender IdentityNot on fileSexual OrientationNot on file Plan of Treatment Health MaintenanceDue DateLast DoneCommentsAnxiety Oyyxzrqub27/12/1971Depression Vqesaovkt79/12/1971Hepatitis C Xjxzkmihx08/12/1971DTaP,Tdap,Td Vaccine (1 - Tdap)1972Mammogram Kzeyyvyyp51/12/1993CT Eshqiqvnlgsl46/12/1998Cologuard (FIT-DNA)07/19/19981827Ijzzuygaisx10/12/1998Colorectal Cancer Ddjzckvek09/12/1998 Diabetes Snmkveixh05/12/1998Fecal Occult Blood1998Lipid Screening 07/19/19985861Alivinulpczdj08/12/1998Pneumococcal Vaccine: 50+ (1 of 1 - PCV) 2003Shingrix Vaccine (1 of 2)2003Bone Density Lorqnpird22/12/2018 Advance Directive Ysigkuvfhc56/01/2025ovid-19 Vaccine (1 - 2024-26 season) 2025Influenza Vaccine (#1)2025RSV Vaccine (1 - 1-dose 75+ series) 2028 Care Teams Team MemberRelationshipSpecialtyStart DateEnd Date Stephen Begum DO PCP - GeneralFamily Dnzzygll72/16/16
--- OUTSIDE RECORDS SUMMARY | 2025-09-11 08:14 | XMS_ITS | Clinical Summary ---
Author Organization [facility] Address [address], [address] [place] [address] Care Team Providers Care Separating Machine Operator Name Role Phone Unavailable Primary Care Provider Unavailabl e Social History Tobacco UseTypesPacks/DayYears UsedDateSmoking Tobacco: Never Assessed CommentsUnknownSex and Gender InformationValueDate RecordedSex Assigned at Not on fileLegal CegOlpwdv93/16/2021 3:51 PM EDTGender IdentityNot on fileSexual OrientationNot on file Plan of Treatment Not on file Insurance
--- OUTSIDE RECORDS SUMMARY | 2025-09-11 08:14 | XMS_ITS | CCD ---
Author Organization [facility] Care Team Providers Care Chef Teacher Name Role Phone Wood, Star A Unavailable Unavailable Wood, Star A Unavailable Unavailable Wood, Star A Unavailable Unavailable Wood, Star A Unavailable Unavailable FOSTER, NEW Unavailable Unavailable FOSTER, NEW Unavailable Unavailable STEPHEN BROWN Unavailable Unavailable ARLYN VANCE Unavailable Unavailable FOSTER, NEW Unavailable Unavailable DAYRON ZAVALA Unavailable Unavailable Salomón Gonzalez Unavailable Salomón Gonzalez Primary Care Provider [phone] Salomón Gonzalez Primary Care Provider [phone] Salomón Gonzalez DO Primary Care Provider Stephen [...] Consulting Unavailable JACINDA, DR BANKS Admitting Unavailable MOANCO, DR BANKS Attending Unavailable HOY ., DR [...] Unavailable Yulisa Batres MD Primary Care Provider [phone] Yulisa Batres MD Primary Care Provider [phone] Mary Resendez Admitting Unavailable Mal, Mary Attending Unavailable Hoy, Yulisa M Primary Care Unavailable Darren Monaco Referring Unavailable Yulisa Batres MD Primary Care Provider [phone] Sammy SUPERINTENDENT COMPRESSOR STATIONS, [place] Unavailable Jacinda OCONNELL, Darren E Unavailable FOSTER, NEW Attending Unavailable SELF, SELF [...] Unavailable Yulisa Batres MD Primary Care Provider [phone] Yulisa Batres MD Primary Care Provider [phone] Sammy DECORATING INSTRUCTOR-PEDIATRIC ORTHODONTIST-C, Gaby E Attending Provider Sammy SUPERINTENDENT COMPRESSOR STATIONS, Gaby Unavailable Unavailable MandeepaMgalie sampson DO Attending Provider Yulisa Batres MD Primary Care Provider [phone] Sammy SUPERINTENDENT COMPRESSOR STATIONS, Gaby Unavailable Unavailable Shante Montenegro DO Attending Provider Yulisa Batres MD Primary Care Provider [phone] Sammy SUPERINTENDENT COMPRESSOR STATIONS, Gaby Unavailable Unavailable Darren Monaco MD Unavailable BROWN, ELIE A Attending Unavailable BROWN, ELIE A Attending Unavailable BROWN, ELIE A Attending Unavailable MANDEEP, MAGALIE Attending Unavailable MONI, ARCHANAER Attending Unavailable MONI, SHANTE Attending Unavailable ZAHLERRAMON Attending Unavailable BROWN, ELIE A Attending Unavailable BROWN, ELIE A Attending Unavailable MANDEEP, MAGALIE Attending Unavailable BROWN, ELIE A Attending Unavailable BROWN, ELIE A Attending Unavailable BROWN, ELIE A Referring Unavailable BROWN, ELIE A Attending Unavailable BROWN, ELIE A Attending Unavailable BROWN, ELIE A Attending Unavailable BROWN, ELIE A Attending Unavailable BROWN, ELIE A Attending Unavailable CHRISTIANSON, GABY Attending Unavailable Allergies Allergy ClassificationReported Allergen(s)Allergy TypeDate of OnsetReaction(s) FacilityAlendronate (1 source)AlendronateDrug Nxyyuhq19-41-1860Wyhribxio Discomfort, DyspepsV[facility] SystemAnti-Epileptic Agents (3 sources)gabapentinDrug Moaoemb89-64-7580Ialgbi and Vomiting, [facility] (1 source)Sulfamethoxazole / TrimethoprimDrug Uszggfy26-21-1078DadstzqWxtmm Health System (20 sources)AlendronateDrug Jhnerpm93-87-4126Tcjmzmcfe Discomfort, Dyspepsia, [facility] Work Phone: (20 sources)gabapentinDrug Xyxgzxm62-19-3581Xgkcmk and Vomiting, Nausea Only, [facility] Work Phone: (20 sources)gabapentinDrug Toeaqmr68-21-6048BhoggsjlIxhtClinton Memorial Hospital Work Phone: (20 sources)OXcarbazepineDrug Bbzuyyb71-35-6732Auybem and VomitingClinton Memorial Hospital Work Phone: (20 sources)CiprofloxacinDrug Lvlgkrh79-94-1798Fjdheis, Unknown ReactionLandmark Medical Center [facility] (20 sources)levoFLOXacinDrug Wdwwhmp59-21-9069Apivtbg, Unknown ReactionNogeneral le[facility] [employer] Other (20 sources)Sulfamethoxazole / TrimethoprimDrug Nlmtjhu67-33-4543TiqnkluBdcmg [employer] Other (1 source)AlendronateDrug AllergyC[facility] (1 source)gabapentinDrug AllergyC[facility] (1 source)gabapentinDrug AllergyC[facility] (1 source)OXcarbazepineDrug AllergyCleveland Clinic [facility] Repository (7 sources)Alendronate; Translations: [alendronate sodium]Drug Pmposiv94-16-4468 Unknown ReactionDelaware County Hospital (13 sources)Sulfamethoxazole; Translations: [sulfamethoxazole]Drug Allergy 12-82-0823WgjqybwbEqbuvovcyAshtabula General Hospital (13 sources)Trimethoprim; Translations: [trimethoprim]Drug Dgrhvnu71-87-9093 [facility] (1 source)CiprofloxacinDrug Iednhsh00-35-2056MqnzycblwDelaware County Hospital Repository (1 source)gabapentinDrug Torgfwh01-22-5806SpqrkiuppDelaware County Hospital Repository (1 source)OXcarbazepineDrug Fmfcmrh33-43-4378LlkwgulcyDelaware County Hospital Repository (20 sources)OxcarbazepinePropensity to adverse reactions to uzxv75-46-4986Dktabt and Vomiting, RashAviWellmont Health System System Medications Current Medications MedicationDrug Class(es)DatesSig (Normalized)Sig (Original)acetaminophen 325 mg oral tablet (20 sources)Start: 18-03-4213ulfu 2 tablets by mouth every four hours as needed Acetaminophen 325 MG tablet Take 2 tablets by mouth every 4 hours as needed for Mild Pain. 50 tablet 1 11/29/2023 ActiveStart: 64-68-9745qqdh 2 tablets by mouth every four hours as neededAcetaminophen 325 MG tablet Take 2 tablets by mouth every 4 hours as needed for Mild Pain. Do not exceed 4000mg of Tylenol in 24 hour period. 50 tablet 1 04/26/2023 ActiveStart: 13-68-4611dldp 1 tablet by mouth every twelve hoursAcetaminophen (Tylenol Arthritis) 650 mg Tablet Extended Release Active 650 MG PO Q12H May 07, 2021 12:00am Complies with drug therapy Start: 38-78-4918gzuy 2 tablets by mouth every six hoursacetaminophen (TYLENOL) tablet 1,000 mgStart: 07-18-2017 End: 42-77-4719eotx 2 tablets by mouth every four hours [...] oral capsule (20 sources)Penicillin-class AntibacterialStart: 12-22-2023 End: 61-86-4058Mwgfdidujgz 500 MG capsule Take 4 capsules 1 hour before procedure 8 capsule 1 12/22/2023 12/22/2024 ActiveStart: 11-19-2020 End: 53-63-5180nzacxvpmvhw 500 MG capsule Take 4 capsules 1 hour before procedure 8 capsule 1 11/19/2020 11/19/2021 ActiveStart: 03-01-2019 End: 53-51-5020zhmkeahlcvn 500 MG Cap capsule Take 4 capsules [...] tablet (20 sources)Factor Xa InhibitorStart: 11-29-2023 End: 52-66-9379hyak 1 tablet by mouth every twelve hoursapixaban 2.5 MG tablet Take 1 tablet by mouth every 12 hours. This medication is for blood clot prev ention 70 tablet 11/29/2023 ActiveStart: 04-26-2023 End: 98-14-8729ksum 1 tablet by mouth every twelve hoursapixaban 2.5 MG tablet Take 1 tablet by mouth every 12 hours. This medication is for blood clot prev ention 70 tablet 0 04/26/2023 ActiveStart: 11-21-2018 End: 35-69-5558cpco 1 tablet by mouth every twelve hoursapixaban 2.5 MG Tab tablet Take 1 tablet by mouth every 12 hours. This medication is for blood clot prevention 70 tablet 0 11/21/2018 Activeascorbic acid 500 mg oral tablet (20 sources)Vitamin CStart: 52-99-7807zxur 1 tablet by mouth once dailyAscorbic Acid [...] oral tablet (9 sources)Macrolide AntimicrobialStart: 07-18-2024 End: 69-10-5060cdmx 1 tablet by mouth once dailyazithromycin (Zithromax Z-Rhett) 250 MG tablet Indications: Abscess of toe, right Take 1 tablet (250 mg) by mouth Daily for 5 days Use as directed 6 tablet 07/30/2024 08/04/2024 Activebiotin 1 mg chewable tablet (20 sources)Start: 87-95-1760emls 1 tablet by mouth once dailyBiotin 1,000 mcg Tablet,Chewable Active 1000 MCG PO Daily May 07, 2021 12:00am Complies with drugtherapyStart: 43-79-4609cspj 1 capsule by mouth twice dailyBiotin 10,000 mcg Capsule Active 51256 MCG PO Twice daily October 01, 2020 1:00am Complies with drug therapytake 2 capsules by mouth in the morningbiotin 1 MG capsule Take 2 mg by mouth in the morning. ActiveBiotin 1 MG capsule Take by mouth daily. Activetake 2 tablets by mouth twice dailyBiotin 65968 MCG Tab Take 2 tablets by mouth 2 times daily. 0 Activebisacodyl 10 mg rectal suppository (1 source)Stimulant LaxativeStart: 95-62-5779kghshtzum (DULCOLAX) suppository 10 mgonabotulinumtoxina 200 unt injection (6 sources)Acetylcholine Release InhibitorStart: 02-28-2025 End: 30-14-4852rfhkndzepmtfuzjpsG (Botox) injection 80 UnitsStart: 02-28-2025 End: 53-39-9946divybp 80 [IU] by intramuscular injection once80 Units, Intramuscular, Once, On Shonda 02/28/25 at 1300, For 1 dose, Charging context for this clinic-administered medication: Medically Necessary/InsuranceStart: 10-25-2024 End: 05-13-2259lyiexqjugacofohoiC (Botox) injection 80 UnitsStart: 10-25-2024 End: 94-42-5637hqfneq 80 [IU] by intramuscular injection once80 Units, Intramuscular, Once, On Shonda 10/25/24 at 1215, For 1 dose, Charging context for this clinic-administered medication: Medically Necessary/InsuranceStart: 07-26-2024 End: 69-56-6657dxwqhtifhyscknaipC (Botox) injection 80 UnitsStart: 07-26-2024 End: 78-67-8166wustto 80 [IU] by intramuscular injection once80 Units, Intramuscular, Once, On Shonda 07/26/24 at 1300, For 1 dose, Charging context for this clinic-administered medication: Medically Necessary/Insurancecalcium carbonate 500 mg chewable tablet (1 source)Start: 40-78-7578scloroc carbonate (TUMS) tablet 500 mgcalcium carbonate 1500 mg / cholecalciferol 200 unt oral capsule (20 sources)Vitamin DStart: 54-17-6885nzwi 1 capsule by mouth once dailyCalcium Carbonate-Vitamin [...] mg chewable tablet (20 sources)Vitamin D End: 37-44-9569Hjcwyil-Vitamin D-Vitamin K (Calcium + D) 500-1000-40 MG-UNT-MCG chewable tablet 1 (one) time each day at the same time. 05/15/2025 Discontinued carvedilol 25 mg oral tablet (20 sources)alpha-Adrenergic Heidi, beta-Adrenergic BlockerStart: 11-14-2023 Carvedilol 25 mg tablet Active 25 MG PO May 01, 2025 12:00am Complies with drug therapyStart: 86-51-1366hlva 1 tablet by mouth twice dailycarveDILOL 12.5 MG tablet Take 1 tablet by mouth 2 times daily. 0 12/21/2022 Active End: 12-27-9775istn 2 tablets by mouth every twelve hourscarvedilol (Coreg) 12.5 MG tablet Take 25 mg by mouth every 12 (twelve) hours 07/31/2024 Discontinued carvedilol (Coreg) 12.5 MG tablet every 12 (twelve) hours. Activecephalexin 500 mg oral capsule (5 sources)Cephalosporin AntibacterialStart: 01-10-2025 End: 70-97-9402matu 1 capsule by mouth in the morning, [...] oral capsule (7 sources)Lincosamide AntibacterialStart: 01-02-2025 End: 28-30-3117qfbo 1 capsule by mouth in the morning, [...] 30 capsule 01/02/2025 01/12/2025 ActiveStart: 08-02-2024 End: 46-88-6053ngno 1 capsule by mouth in the morning, [...] ActiveclonazePAM 0.5 mg oral tablet (20 sources)BenzodiazepineStart: 45-46-8464vsan 0.5-1 tablets by mouth at bedtime as neededclonazePAM 0.5 MG Tab tablet TAKE 1/2 TO 1 TABLET BY MOUTH AT BEDTIME NEEDED 1 07/01/2018 ActiveD-BIOTIN (18 sources)Biotin 32251 MCG Tab take 2 tablets by mouth 2 times daily.. 0 ActiveBiotin 00311 MCG Tab take 2 tablets by mouth 2 times daily.. Active1 ml dexamethasone phosphate 4 mg/ml injection (12 sources)CorticosteroidStart: 83-16-3096xxdmonisyinhw 4 MG/ML Solution injection 1 mL by Other route As directed for 18 doses. (1 cc 3 x a week at physical therapy via iontophoresis) for up to 18 doses. 30 mL 0 03/01/2019 ActiveStart: 11-22-2018 End: 83-99-0161hfas 10 mg intravenous route every twenty-four hoursdexamethasone (DECADRON) injection 10 mgdiclofenac sodium 0.01 mg/mg topical gel (20 sources)Nonsteroidal Anti-inflammatory DrugStart: 00-22-9384Iiiazmowhm Sodium 1 % Gel gel Diclofenac Diclofenac Sodium Active 4 GM Topical Four times daily October 01, 2020 10:38am 10-01-2020 [facility] ([id number]) 10/01/2020 ActiveStart: 89-04-1673Moaypkfsfi Sodium 1 % Gel gel Diclofenac Diclofenac Sodium Active 4 GM Topical Four times daily October 01, 2020 10:38am 10-01-2020 [facility] ([id number]) 0 10/01/2020 ActiveStart: 63-84-5112lzjdy 4 g topically four times dailyDiclofenac Sodium 1 % gel Active 4 GM TOPICAL Four times daily October 01, 2020 1:00am Complies w ith drug therapyStart: 72-17-0308zdcee 4 g topically four times dailyDiclofenac Sodium Active 4 GM TOPICAL Four times daily October 01, 2020 1:00amStart: 01-09-2018 End: 36-63-4802VFKHJRLL 1 % Gel gel 1 Application as needed. 01/09/2018 11/24/2018 Discontinueddocusate sodium 100 mg oral capsule (20 sources)Start: 56-33-4876mgvs 1 capsule by mouth twice dailyDocusate 100 MG capsule Take 1 capsule by mouth 2 times daily. 60 capsule 11/29/2023 Active Start: 65-23-3574uabo 1 capsule by mouth twice dailyDocusate 100 MG capsule Take 1 capsule by mouth 2 times daily. Hold for loose stools. 60 capsule 0 0 04/26/2023 ActiveStart: 07-18-2017 End: 35-82-1761uepx 1 capsule by mouth twice dailydocusate 100 MG Cap capsule Take 1 capsule by mouth 2 times daily. 60 capsule 0 11/21/2018 Activedocusate sodium 50 mg / sennosides, retirement 8.6 mg oral tablet (1 source)Start: 98-03-8672zfxgy-docusate (SENOKOT-S) 8.6-50 MG per tablet 2 tabletdoxazosin 4 mg oral tablet (20 sources)alpha-Adrenergic BlockerStart: 69-84-2589Bwcysplcm 4 mg tablet Active 4 MG PO May 01, 2025 12:00am Complies with drug therapyFish Oils (1 source)take 1 capsule by mouth once dailyFish Oil 1000 MG 1 capsule Orally Once a day for 30 day(s) Activefolic acid 1 mg oral tablet (20 sources)Start: 93-48-2165jyvz 1 tablet by mouth once dailyFolic Acid 1 mg tablet Active 1 MG PO Daily October 01, 2020 1:00am Complies with drug therapyglucosamine 500 mg oral tablet (1 source)take 1 capsule by mouth once dailyGlucosamine 500 MG 1 capsule with a meal Orally Once a day for 30 day(s) JizcwhLqpylxorxfi-Nwltrkrbu-Ust C-Mn (Glucosamine 1500 Complex) capsule (20 sources)Hxcuximlxox-Cupnwibeh-Etm C-Mn (Glucosamine 1500 Complex) capsule as directed Orally LcwwfhAopdtaqauar-Lgfnlspga-Axa C-Mn (Glucosamine 1500 Complex) capsule Take by mouth daily. VrgosnOklvhsndlme-Fyzkkebfg-Sxd C-Mn (Glucosamine 1500 Complex) capsule Take by mouth daily. 0 Active Dylksjrkgvu-Nta-Svczpaupz-Vitc (Glucosamine Complex-Msm) Capsule (6 sources)Start: 79-81-7021jktp 1 capsule by mouth once dailyStart: 10-01-2020 take 1 capsule by mouth once ncadhMkkeusypufe-Kdk-Wyxghkonq-Vitc (Glucosamine Complex-Msm) Capsule Active 1 CAP PO Daily October 01, 2020 1:00am Complies with drug therapyStart: 04-43-7187upxp 1 capsule by mouth once daily Pyespfezuyl-Ufk-Aqeilijbf-Vitc (Glucosamine Complex-Msm) Capsule Active 1 CAP PO Daily October 01, 2020 1:00am1 ml hydrALAZINE hydrochloride 20 mg/ml injection (1 source)Arteriolar VasodilatorStart: 34-86-5005lrlf 10 mg intravenous route every six hours as neededhydrALAzine (APRESOLINE) injection 10 mg hydroCHLOROthiazide 25 mg / triamterene 37.5 mg oral tablet (20 sources)Potassium-sparing Diuretic, Thiazide DiureticStart: 10-22-3943mptg 1 tablet by mouth once dailyTriamterene-Hydrochlorothiazid 37.5-25 mg Tablet Active 1 TAB PO Daily May 07, 2021 12:00am Complies with drug therapyStart: 65-07-4277mcss 1 tablet by mouth once daily1 tablet, Oral, DAILY, First dose on Tue11/21/18 at 1230, Until Discontinuedtriamterene-hydrochlorothiazide 37.5-25 MG Cap Take 1 capsule by mouth as needed (edema). Activetriamterene- hydrochlorothiazide (Maxzide-25) 37.5-25 MG tablet Active1 ml HYDROmorphone hydrochloride 1 mg/ml cartridge (1 source)Opioid AgonistStart: 16-20-3637weun 0.5 mg intravenous route every four hours as neededHYDROmorphone (DILAUDID) injection 0.5 mghydroxychloroquine sulfate 200 mg oral tablet (20 sources)Antimalarial, Antirheumatic AgentStart: 42-25-7925trcm 1 tablet by mouth twice dailyHydroxychloroquine 200 mg Tablet Active 200 MG PO Twice daily October 01, 2020 1:00am Complies with drug therapyStart: 10-01-2020 End: 44-55-5078klbs 200 mg by mouth twice dailyHydroxychloroquine Active 200 MG PO Twice daily October 01, 2020 1:00amtake 1 tablet by mouth in the morning hydroxychloroquine (Plaquenil) 200 MG tablet Take 200 mg by mouth in the morning and 200 mg before bedtime. Activeibandronic acid 150 mg oral tablet (20 sources)BisphosphonateStart: 51-45-7451Fquylfqnudw 150 mg tablet Active 150 MG PO May 01, 2025 12:00am Complies with drug therapyStart: 10-01-2020 End: 11-34-6445kqsz 1 tablet by mouth every monthIbandronate 150 mg tablet Discontinued 150 MG PO every month October 01, 2020 1:00am May 07, 2021 11:16amStart: 42-62-1653brdx 1 tablet by mouth every 30 daysibandronate 150 MG Tab Take 1 tablet by mouth every 30 days. 09/10/2016 Activeleflunomide 20 mg oral tablet (20 sources)Antirheumatic AgentStart: 16-98-3339jsft 1 tablet by mouth once dailyLeflunomide 20 mg tablet Active 20 MG PO Daily October 01, 2020 1:00am Complies with drug therapyStart: 10-03-2016 End: 31-64-3627sikfakosfch 20 MG Tab take 20 mg by mouth at bedtime.. 10/03/2016 11/24/2018 Discontinuedlisinopril 40 mg oral tablet (20 sources)Angiotensin Converting Enzyme InhibitorStart: 20-89-0784Ybamepqntv 40 mg tablet Active 40 MG PO May 01, 2025 12:00am Complies with drug therapy Start: 93-61-2998qqxr 1 tablet by mouth once dailyLisinopril 10 mg tablet Active 10 MG PO Daily October 01, 2020 1:00am Complies with drug therapymeloxicam 7.5 mg oral tablet (18 sources)Nonsteroidal Anti-inflammatory DrugStart: 48-44-1694eroy 1 tablet by mouth once daily at mealtimeMeloxicam 7.5 MG tablet Take 1 tablet by mouth daily. Take with food. 30 tablet 11/29/2023 ActiveStart: 35-85-2807kmda 1 tablet by mouth once daily at mealtimeMeloxicam 7.5 MG tablet Take 1 tablet by mouth daily. Take with food. 30 tablet 0 04/26/2023 Activemethotrexate 2.5 mg oral tablet (20 sources)Folate Analog Metabolic InhibitorStart: 61-84-0938ygtf 5 tablets by mouth every weekmethotrexate 2.5 MG tablet TAKE 5 TABLETS BY MOUTH ONCE EVERY WEEK 0 10/03/2020 ActiveStart: 18-00-9680yqan 6 tablets by mouth every week Methotrexate Sodium 2.5 mg Tablet Active 12.5 MG PO Q7D October 01, 2020 1:00am 6 one day a weekon Tuesday Complies with drug therapyStart: 10-01-2020 Methotrexate Sodium Active 12.5 MG PO Q7D October 01, 2020 1:00am 6 one day a week on Tuesday End: 06-46-3572uprbijlrlmfo 2.5 MG tablet every 7 days. ActivemethylPREDNISolone (20 sources)CorticosteroidStart: 46-43-3750qjvvjxKNAKCOdqtxak 4 MG Tab Therapy Pack tablet as needed. 02/21/2023 ActiveStart: 17-69-1332forwzzCBFHZKQpvwzj (Medrol Dospak) 4 MG tablets TAKE DIRECTED [...] mouth at bedtime.. ActiveMultivitamin preparation (2 sources)Start: 57-37-9457yixs 1 tablet by mouth once dailyMultivitamin Active 1 TAB PO Daily October 01, 2020 1:00amMultivitamin as directed Orally Active Multivitamin Tablet (5 sources)Start: 76-62-4835ynpc 1 tablet by mouth once dailyStart: 10-01-2020 take 1 tablet by mouth once dailyMultivitamin Tablet Active 1 TAB PO Daily October 01, 2020 1:00am Complies with drug therapy2 ml ondansetron 2 mg/ml injection (1 source)Serotonin-3 Receptor AntagonistStart: 28-50-8284cvmt 4 mg intravenous route every four hours as neededondansetron 4mg/2ml (ZOFRAN) injection 4 mg oxyCODONE hydrochloride 5 mg oral tablet (20 sources)Opioid AgonistStart: 73-29-0981sqnk 1-2 tablets by mouth every four to six hours as needed for painoxyCODONE 5 MG tablet Indications: Acute postoperative pain of left knee Take 1-2 tabs po q 4-6 hours prn pain. Wean as tolerated. 30 tablet 11/29/2023 ActiveStart: 57-98-2718wbtRLIACF 5 MG tablet Indications: Acute postoperative pain of right knee Take one to two tabs every 4-6 hours as needed for severe pain. Wean as tolerated 30 tablet 0 04/26/2023 ActiveStart: 07-18-2017 End: 75-72-0318osol 1-2 tablets by mouth every four to six hours as needed for painoxyCODONE 5 MG Tab tablet Indications: Acute postoperative pain of left knee Take 1-2 tabs po q 4-6hours PRN pain. 60 tablet 0 11/21/2018 Activepantoprazole 40 mg delayed release oral tablet (20 sources)Proton Pump InhibitorStart: 39-59-6090yiwk 1 tablet by mouth once dailyPantoprazole 40 mg tablet,delayed release (DR/EC) Active 40 MG PO Daily October 01, 2020 1:00am Complies with drug therapypredniSONE 5 mg oral tablet (20 sources)Start: 81-54-5467ujau 1 tablet by mouth twice daily as needed for pain, then take 1-2 tablets by mouth once daily asneeded for painPrednisone 5 mg Tablet Active 5 MG PO Twice daily as needed for Pain May 07, 2021 12:00am Dr Monaco placed on. 1-2 as needed per day Complies with drug therapypregabalin 25 mg oral capsule (20 sources)Start: 03-21-2025 End: 88-47-2880xhpq 1 capsule by mouth in the morningpregabalin (Lyrica) 25 MG capsule Indications: Paresthesias , Spinal stenosis of lumbar region, unsp ecified whether neurogenic claudication present Take 1 capsule (25 mg) by mouth in the morning and 1 capsule (25 mg) before bedtime. Do not start before March 21, 2025. 60 capsule 2 03/21/2025 ActiveStart: 10-22-2024 End: 86-81-2338hjtp 2 capsules by mouth in the morningpregabalin (Lyrica) 25 MG capsule Indications: Paresthesias , Spinal stenosis of lumbar region, unsp ecified whether neurogenic claudication present Take 2 capsules (50 mg) by mouth in the morning and2 capsules (50 mg) before bedtime. 60 capsule 2 10/22/2024 10/24/2024 Discontinued (Reorder)Start: 10-15-2024 End: 25-86-4576pejt 1 capsule by mouth in the morningpregabalin (Lyrica) 50 MG capsule Indications: Paresthesias , Spinal stenosis of lumbar region, unsp ecified whether neurogenic claudication present Take 1 capsule (50 mg) by mouth in the morning and 1 capsule (50 mg) before bedtime. 60 capsule 2 10/15/2024 10/22/2024 Discontinued (Reorder)Start: 02-15-2023 End: 58-03-2514ddkq 1 capsule by mouth in the morningpregabalin (Lyrica) 25 MG capsule Indications: Paresthesias , Spinal stenosis of lumbar region, unsp ecified whether neurogenic claudication present Take 1 capsule (25 mg) by mouth in the morning and 1 capsule (25 mg) before bedtime. Do not start before March 21, 2025. 60 capsule 2 03/21/2025 Activepsyllium 520 mg oral capsule (20 sources)Start: 74-63-1123Pldduhyl Husk (Metamucil) 0.52 gram Capsule Active 0.52 GM PO Daily May 07, 2021 12:00am Complieswith drug therapytake 1 dose by mouth once daily in the eveningPsyllium (METAMUCIL FIBER PO) take 1 Dose by mouth every evening.. 0 Activetake 1 dose by mouth once daily in the evening Psyllium (METAMUCIL FIBER PO) take 1 Dose by mouth every evening.. Sqsrxr2548 ml sodium chloride 9 mg/ml injection (2 sources)Start: 11-21-2018 End: 17-36-6212ehtnpk chloride 0.9% IV solutionsodium phosphate, dibasic 35.5 mg/ml / sodium phosphate, monobasic 96.4 mg/ml enema (1 source)Start: 20-75-5580mtisbh phosphate w/sodium biphosphate (FLEETS) enema 1 enemasucralfate 1000 mg oral tablet (18 sources)Aluminum ComplexStart: 28-37-0331zwxq 1 tablet by mouth twice daily Sucralfate 1 g tablet Take 1 tablet by mouth 2 times daily. 60 tablet 11/29/2023 ActiveStart: 17-47-5150pqni 1 tablet by mouth twice dailySucralfate 1 g tablet Take 1 tablet by mouth 2 times daily. While on NSAID therapy 84 tablet 0 04/26 Activetherapeutic multivitamin-minerals tablet (18 sources)Start: 22-85-4695rnmm 1 tablet by mouth at bedtimetherapeutic multivitamin-minerals tablet Take 1 tablet by mouth at bedtime. 30 tablet 11/29/2023 ActiveStart: 19-91-5160pnqo 1 tablet by mouth at bedtimetherapeutic multivitamin-minerals tablet Take 1 tablet by mouth at bedtime. 30 tablet 0 04/26/2023 Activethioctic acid 200 mg oral tablet (20 sources)Start: 86-56-1913gugo 1 tablet by mouth once dailyAlpha Lipoic Acid 200 mg Tablet Active 200 MG PO Daily October 01, 2020 1:00am Complies with drug therapy End: 44-99-9789Sagwz-Lipoic Acid 200 MG capsule 1 capsule daily. Active tiZANidine 4 mg oral tablet (20 sources)Central alpha-2 Adrenergic AgonistStart: 59-45-4459Stbyimikgm 4 mg tablet Active 4 MG PO May 01, 2025 12:00am Complies with drug therapytraMADol hydrochloride 50 mg oral tablet (20 sources)Opioid AgonistStart: 17-12-8556aojz 1 tablet by mouth three times daily as needed for paintraMADol 50 MG tablet Take 1 tablet by mouth 3 times daily as needed for Pain. 07/27/2023 ActiveStart: 60-66-1680vgnf 1 tablet by mouth twice daily as needed for painTramadol 50 mg Tablet Active 50 MG PO Twice daily as needed for Pain October 01, 2020 1:00am Complies with drug therapy Start: 11-03-2017 End: 51-94-1563pfyEIFhf 50 MG Tab tablet TAKE 1 TABLET TWICE A DAY NEEDED 2 11/03/2017 11/24/2018 Discontinuedtriamcinolone acetonide 0.25 mg/ml topical cream (12 sources)CorticosteroidStart: 86-75-9766Qmzamjwvfpakn Acetonide 0.025 % Cream Active 1 APPLIC TOPICAL Twice daily May 07, 2021 12:00am Complies with drug therapyStart: 03-11-2021 End: 12-26-3228obslabbqbgzrx (KENALOG-40) injection 1 mLStart: 11-19-2020 End: 48-95-7950sttlcwnxcvnhq (KENALOG-40) injection 1 mLStart: 11-21-2019 End: 35-18-6267mdtvsnleghgao (KENALOG-40) injection 1 mLStart: 11-21-2019 End: 49-84-6018ocwqfrxvqxuwd (KENALOG-40) injection 1 mLTURMERIC CURCUMIN PO (4 sources)TURMERIC CURCUMIN PO Take by mouth. 0 ActiveTurmeric Root Extract (20 sources)Start: 95-62-1526rmet 1 capsule by mouth once dailyStart: 05-07-2021 take 1 capsule by mouth once dailyTurmeric Root Extract 500 mg Capsule Active 500 MG PO Daily May 07, 2021 12:00am Complies with drug therapyStart: 04-71-9028kban 500 mg by mouth once dailyTurmeric Root Extract Active 500 MG PO Daily May 07, 2021 12:00amTurmeric 500 MG capsule as directed Orally Active TURMERIC PO as directed Orally ActiveTURMERIC PO as directed Orally 0 Active zolpidem tartrate 5 mg oral tablet (1 source)gamma-Aminobutyric Acid-ergic AgonistStart: 62-02-9028vnvujopl (AMBIEN) tablet 5 mg Completed/Discontinued Medications MedicationDrug Class(es)DatesSig (Normalized)Sig (Original)baclofen 10 mg oral tablet (20 sources)gamma-Aminobutyric Acid-ergic AgonistStart: 54-21-5550gybo 20 mg by mouth three times daily as ahxbex10 mg, Oral, 3 TIMES DAILY NEEDED, Starting Tue11/21/18 at 1145, Until Discontinued, Muscle spasmstake 2 tablets by mouth three times daily as neededbaclofen 10 MG Tab Take 20 mg by mouth 3 times daily as needed. 0 ActiveCalcium-Vitamin D 600-200 Mg-Unit Po Tabs (3 sources) End: 94-05-6217txoq 1.5 tablets by mouth once daily in the morningCalcium- Vitamin D 600-200 MG-UNIT Tab take 1.5 tablets by mouth daily every morning.. 11/24/2018 Discontinuedtake 1.5 tablets by mouth once daily in the morning Calcium-Vitamin D 600-200 MG-UNIT Tab take 1.5 tablets by mouth daily every morning.. ActiveceFAZolin 2000 mg injection (1 source)Cephalosporin AntibacterialStart: 11-21-2018 End: 95-94-5384qnwf 2 g intravenous route every eight hoursceFAZolin (ANCEF) 2 g in dextrose 100 mL premix IVPBcelecoxib 200 mg oral capsule (1 source)Nonsteroidal Anti-inflammatory DrugStart: 11-21-2018 End: 07-20-9800oovvmrfol (CELEBREX) capsule 200 mgferrous sulfate 325 mg oral tablet (12 sources)Start: 10-01-2020 End: 08-28-3697vujb 1 tablet by mouth twice dailyFerrous Sulfate [...] source)Nonsteroidal Anti-inflammatory Drug, Cyclooxygenase InhibitorStart: 11-21-2018 End: 78-59-9894spta 15 mg intravenous route every six hoursketorolac (TORADOL) injection 15 mg10 ml lidocaine hydrochloride 10 mg/ml injection (9 sources)Antiarrhythmic, Amide Local AnestheticStart: 03-11-2021 End: 35-75-7267agdjrfnpd 1% (PF) (XYLOCAINE MPF) 1 % injection 5 mLStart: 11-19-2020 End: 44-03-9198lfxroavpm 1% (PF) (XYLOCAINE MPF) 1 % injection 5 mLStart: 11-21-2019 End: 34-32-5659sthtppvuo 1% (PF) (XYLOCAINE MPF) 1 % injection 5 mLStart: 11-21-2019 End: 31-73-1411ctylujrjg 1% (PF) (XYLOCAINE MPF) 1 % injection 5 mLStart: 04-12-2017 End: 81-73-4323rmzwjdiar 5 % Ointment as needed.. 6 04/12/2017 11/24/2018 Discontinuedmagnesium oxide 400 mg oral tablet (3 sources)Start: 09-27-2016 End: 59-28-2033Xxlzbzmfe Oxide 400 (240 Mg) MG Tab take 400 mg by mouth as needed.. 09/27/2016 11/24/2018 DiscontinuedOXcarbazepine 150 mg oral tablet (3 sources)Anti-epileptic AgentStart: 01-03-2018 End: 80-95-5869GPzjzwpmcowkf 150 MG Tabropivacaine (NAROPIN) 1 % 400 mg, EPINEPHrine PF (ADRENALIN) 1 MG/ML 1 mg, ketorolac (TORADOL) 30 MG/ML 30 mg, cloNIDine 100 MCG/ML 184 mcg, sodium chloride 0.9% 45 mL 88.84 mL (total volume) (1 source)Start: 11-21-2018 End: 01-56-1618cpxwgdshrmm (NAROPIN) 1 % 400 mg, EPINEPHrine PF (ADRENALIN) 1 MG/ML 1 mg, ketorolac (TORADOL) 30 MG/ML 30 mg, cloNIDine 100 MCG/ML 184 mcg, sodium chloride 0.9% 45 mL 88.84 mL (total volume)tranexamic acid 650 mg oral tablet (1 source)Antifibrinolytic AgentStart: 11-21-2018 End: 83-84-6389scgzymooop acid (LYSTEDA) tablet 1,950 mgvancomycin (VANCOCIN) 1,250 mg in sodium chloride 0.9%, with overfill 287.5 mL (total volume) IVPB (2 sources)Start: 11-21-2018 End: 18-35-4519wzgrlpwilw (VANCOCIN) 1,250 mg in sodium chloride 0.9%, with overfill 287.5 mL (total volume) IVPBStart: 11-21-2018 End: 72-66-8691jvccujiedy (VANCOCIN) 1,250 mg in sodium chloride 0.9%, with overfill 287.5 mL (total volume) IVPBzonisamide 100 mg oral capsule (20 sources)Anti-epileptic AgentStart: 10-01-2020 End: 85-54-9309wmiz 1 capsule by mouth at bedtimeZonisamide 100 mg capsule Discontinued 100 MG PO Bedtime October 01, 2020 1:00am May 0159:54am Problems Active Problems Problem ClassificationProblemDateDocumented DateEpisodic/ChronicAcquired foot deformities (20 sources)Acquired deformity of toe of left foot; Translations: [Acquired deformities of toe(s), unspecified,left foot]62-42-5655ZdokgxgeBqxgfaup (20 sources)After-cataract of left eye; Translations: [Other secondary cataract, left eye]Onset: 07-13-2023 Resolved: 421216-37-7267EtiuispNeptljz ulcer of skin (4 sources)Non-pressure chronic ulcer of other part of left foot with fat layer exposed; Translations: [Ulcer of other part of foot]98-74-2074GtkwrpmKlvufcarvr and other anemia (6 sources)Iron deficiency anemia; Translations: [Iron deficiency anemia, unspecified]97-20-2268ZjvalbujYqztmpsp of white blood cells (6 sources)Leukopenia; Translations: [Decreased white blood cell count, unspecified]07-45-7654OzuvsxvPudgxzehy of lipid metabolism (20 sources)Hyperlipidemia, unspecified; Translations: [Hyperlipidemia]Onset: 05-46-8061JjdnvsuZwcoaybdjj disorders (20 sources)Gastroesophageal reflux disease; Translations: [Gastro-esophageal reflux disease without esophagitis]Onset: 337653-70-6050YubskibLjfrdhjcs hypertension (20 sources)Benign hypertension; Translations: [Essential (primary) hypertension]Onset: 554920-46-0352UphdlmvXixbtunb; including migraine (4 sources)Headache; including migraine; Translations: [HEADACHE UNSPECIFIED] Onset: 77-07-3523Lpubujn (6 sources)Pain in toe; Translations: [Tinea unguium]17-09-5057Pbqeoanp Nutritional deficiencies (1 source)Vitamin D deficiency, unspecified; Translations: [VITAMIN D DEFICIENCY UNSPECIFIED]Onset: 96-32-4329PixcolkCueefmjllhuben (20 sources)Primary generalized (osteo)arthritis; Translations: [Osteoarthritis of right knee joint]Onset: 357087-92-8835BmebneeAdmsolekixdz (4 sources)Age-related osteoporosis without current pathological fracture; Translations: [AGE-REL OSTEOPOR W/OCURR PATH FX]Onset: 67-15-9130FtsllmuMtjak aftercare (1 source)Other long winder tender (current) drug therapy; Translations: [OTH SMOOTH STUCCO RESURFACER CURRENT DRUG THERAPY]Onset: 09-69-1717TdrpspgqUogij circulatory disease (18 sources)Raynaud's phenomenon; Translations: [Raynaud's syndrome without gangrene]Onset: 493530-53-8574NdzeiblVhxho connective tissue disease (18 sources)History of total knee arthroplasty; Translations: [Presence of unspecified artificial knee joint]Onset: 010041-70-4820PyxdwjiQeehu connective tissue disease (3 sources)History of right total knee replacement; Translations: [Presence of right artificial knee joint]89-87-5545SnbbvoeBrkao connective tissue disease (3 sources)History of left total knee replacement; Translations: [Presence of left artificial knee joint]75-11-3736JdtramiNabaa connective tissue disease (2 sources)Presence of left artificial knee joint; Translations: [Presence of left artificial knee joint]Onset: 89-23-2493JuirdnjHkyah connective tissue disease (2 sources)Presence of right artificial knee joint; Translations: [Presence of right artificial knee joint]Onset: 09-49-3529YoasonzAgpan connective tissue disease (1 source)Disorder of tendon; Translations: [Extensor mechanism malalignment] EpisodicOther connective tissue disease (4 sources)Pain of toe of right foot; Translations: [Pain in right toe(s)] 66-67-2132DoltifgtSexks hematologic conditions (6 sources)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; Translations: [Other specified diseases of blood and blood-forming organs]13-48-5094FggzdtcIwrqu hereditary and degenerative nervous system conditions (20 sources)Blepharospasm; 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]Onset: 04-24-2024 16-21-9696TcipktvUvwxm nervous system disorders (20 sources)Peripheral nerve disease ; Translations: [Polyneuropathy, unspecified]Onset: 058872-70-6312RwzviarHabds nervous system disorders (20 sources)Small fiber neuropathy; Translations: [Polyneuropathy, unspecified] Onset: 524576-23-8863ArmzdcnXylka nervous system disorders (20 sources)Polyneuropathy; Translations: [Polyneuropathy, unspecified]Onset: 457686-43-4361PqnkziqXrsdi nervous system disorders (15 sources)Bilateral carpal tunnel syndrome; Translations: [Carpal tunnel syndrome, bilateral upper limbs]63-90-1266KfidfjqQjbfb non-traumatic joint disorders (2 sources)Knee pain; Translations: [Postoperative pain of left knee]Episodic Other non-traumatic joint disorders (2 sources)Pain in right hip; Translations: [Right hip pain]EpisodicOther non- traumatic joint disorders (1 source)Joint pain; Translations: [Pain in prosthetic joint, initial encounter]EpisodicOther non-traumatic joint disorders (7 sources)Pain in left knee; Translations: [Pain in left knee]Onset: 11-21-2018 50-35-2118Rjoqt non-traumatic joint disorders (1 source)Arthritis of right knee; Translations: [Arthritis of right knee]Other nutritional; endocrine; and metabolic disorders (20 sources)Obesity, unspecified; Translations: [Obese class I]Onset: 2017 83-92-3842IapssubNoaas nutritional; endocrine; and metabolic disorders (7 sources)Obese class I; Translations: [Obesity (BMI 30.0-34.9)]Onset: Other screening for suspected conditions (not mental disorders or infectious disease) (7 sources)Encounter for screening for malignant neoplasm of colon; Translations: [Encounter for screening mammogram for malignant neoplasm of breast]Onset: 79-89-1393RpvjiyeaDrdhx skin disorders (4 sources)Ingrowing nail; Translations: [Ingrowing nail]06-96-8443Ugyfhlot Peripheral and visceral atherosclerosis (20 sources)Peripheral vascular disease; Translations: [Peripheral vascular disease, unspecified]Onset: 798052-92-1472OygltusVaveomn detachments; defects; vascular occlusion; and retinopathy (20 sources)Nonexudative age-related macular degeneration; Translations: [Nonexudative age-related macular degeneration, bilateral, intermediate dry stage]Onset: 175638-35-8308KtxhbdoLyxnfyozrz arthritis and related disease (20 sources)Rheumatoid arthritis; Translations: [Rheumatoid arthritis, unspecified]Onset: 284360-09-2864CvlyslkRgyr and subcutaneous tissue infections (20 sources)Cellulitis of left axilla; Translations: [Cellulitis of left axilla] Onset: 764106-40-8834AwjimhifVubtflomste; intervertebral disc disorders; other back problems (20 sources)Lumbar spondylosis; Translations: [Spondylosis without myelopathy or radiculopathy, lumbar region]Onset: 08-31-2021 Resolved: 87-49-2131BazamrlAaxoumww lupus erythematosus and connective tissue disorders (20 sources)Systemic involvement of connective tissue, unspecified; 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]Onset: 02-08-2023 ChronicThyroid disorders (18 sources)Hyperthyroidism; Translations: [Thyrotoxicosis, unspecified without thyrotoxic crisis or storm]Onset: 219917-10-3242MvzpcguPlkbgpeebsif (2 sources)Preprocedural examination done; Translations: [Pre-op exam] Unclassified (1 source)History of left total knee replacement; Translations: [Hx of total knee arthroplasty, left]Unclassified (1 source)Decreased white blood cell count, unspecified; Translations: [Decreased white blood cell count, unspecified]Onset: 39-72-5156Mgxqyfu tract infections (18 sources)Chronic cystitis; Translations: [Other chronic cystitis without hematuria]Onset: 754528-96-7465Bkrtqun Past or Other Problems Problem ClassificationProblemDateDocumented DateEpisodic/ChronicConditions associated with dizziness or vertigo (20 sources)Dizziness; Translations: [Dizziness and giddiness]Onset: 04-24-2024 20-38-9631DkvpetruImnbtsthgy and other anemia (1 source)Anemia, unspecified; Translations: [ANEMIA UNSPECIFIED]Onset: 33-00-7348TxehfutfKtxpvpddny and other anemia (1 source)Iron deficiency anemia, unspecified; Translations: [Iron deficiency anemia, unspecified]Onset: 14-62-2259FpzsokanHxheblfx mellitus without complication (1 source)Other abnormal glucose; Translations: [OTHER ABNORMAL GLUCOSE]Onset: 80-46-1925TjkdhvxcWqcbwmsgjbiu; infection of eye (except that caused by tuberculosis or sexually transmitteddisease) (20 sources)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; Translations: [Unspecified blepharitis right eye, upper and lower eyelids]Onset: 411001-48-5819SpgonvufFyymglj examination/evaluation (2 sources)Encounter for other preprocedural examination; Translations: [Encounter for other preprocedural examination]Onset: 95-37-1153BridmsevOyxsr acquired deformities (20 sources)Spondylolisthesis; Translations: [Spondylolisthesis, site unspecified]Onset: 202264-64-8176ItmobrgcRuqxj aftercare (20 sources)Drug therapy finding; Translations: [Other long winder tender (current) drug therapy]Onset: 188043-46-1106KwdcgfanXkvrc bone disease and musculoskeletal deformities (1 source)Other specified disorders of bone density and structure, unspecified site; Translations: [OTH D/O BONE DEN STRUCT UNS SITE]Onset: 83-93-9228Xenrbfje Other bone disease and musculoskeletal deformities (20 sources)Osteopenia; Translations: [Other specified disorders of bone density and structure, unspecified site]Onset: 076502-18-0048PnpvkqetZowvp circulatory disease (1 source)Decreased breath sounds; Translations: [Decreased breath sounds] EpisodicOther connective tissue disease (20 sources)Rupture of patellar tendon; Translations: [Patellar tendon rupture] Onset: 494920-04-3850RghkwlfeTvyda connective tissue disease (20 sources)Synovial hernia; Translations: [Other specified disorders of synovium and tendon, unspecified site]Onset: 542120-52-7019JehbtxxjBuubj connective tissue disease (20 sources)Fibromyalgia; Translations: [Fibromyalgia]Onset: 04-24-2024 13-76-5275DteixwcaKbvoe connective tissue disease (20 sources)Weakness of face muscles; Translations: [Facial weakness]Onset: 026162-95-7382SxlkbyrtGlxwj connective tissue disease (20 sources)Spasm; Translations: [Other muscle spasm]Onset: EpisodicOther connective tissue disease (1 source)Pain of toes of bilateral feet; Translations: [Pain in right toe(s)] 27-06-9861YvxdpowzFfueh eye disorders (20 sources)Dry eyes; Translations: [Dry eye syndrome of bilateral lacrimal glands]Onset: 293928-84-6661DkfkronlNkcgh nervous system disorders (20 sources)Trigeminal neuralgia; Translations: [Trigeminal neuralgia]Onset: 854210-05-3704MfqwrtdyHsqmf nervous system disorders (20 sources)Hemifacial spasm; Translations: [Clonic hemifacial spasm, unspecified]Onset: 154718-98-5583ZvvsewzeBkzvq nervous system disorders (20 sources)Skin sensation disturbance; Translations: [Unspecified disturbances of skin sensation]Onset: 421497-93-1055CwougozfPqjvi nervous system disorders (20 sources)Paresthesia; Translations: [Paresthesia of skin]Onset: 04-24-2024 81-58-1898FicyazuxSbvqr non-traumatic joint disorders (20 sources)Pain in left knee; Translations: [Pain in left knee]Onset: 661044-87-0194UravygfyUphcf non-traumatic joint disorders (10 sources)Pain in right knee; Translations: [Pain in right knee]Onset: 70-99-5712GzfcuovvAutntatr codes; unclassified (1 source)Family history of malignant neoplasm of digestive organs; Translations: [FAM HX MALIG NEOPLASM DIGESTIV ORGN]Onset: 22-16-6677Qtylxqnv Residual codes; unclassified (1 source)Family history of malignant neoplasm of other organs or systems; Translations: [FAM HX MALIG NEOPLASM OTH ORGN/SYS]Onset: 68-40-9519Qjvhilfe Spondylosis; intervertebral disc disorders; other back problems (20 sources)Sciatica; Translations: [Sciatica, left side]Onset: 08-31-2021 Resolved: 23-31-5810BuskcptuRweetec and strains (20 sources)Strain of other muscle(s) and tendon(s) at lower leg level, unspecified leg, subsequent encounter; Translations: [Rupture of patellar tendon]Onset: 060614-33-8553OstpocxuKqwbucxwaskv (14 sources)Onset: 11-24-2018 Resolved: Results Test NameValueInterpretationReference RangeFacilityOptical coherence tomography study reporton 36-24-5085BAQRAtrium HealthRadiology Study observation (narrative)[facility] HospitalPerimetry studyon 15-84-1149EOOTSt. Louis Children's HospitalRadiology Study observation (narrative)[facility] HospitalXR Foot - left 3 Viewson 02-35-2739Mpekwkf Result: K-wire fixation intact with PIPJ arthrodesis site intact to the 3rd digit with rectus 3rd digit notedNOHudson Hospital and ClinicRadiology Study observation (narrative)[facility] HospitalEMG 2 Extremitieson 24-38-7714Btehfd tunnel bilaterally. Moderate left and minimal right. C8 radiculopathy bilaterally which is mild in degree electricallyIredell Memorial HospitalNVC 11-12 Nerveson 48-99-1339Sbgelo tunnel bilaterally. Moderate left and minimal right. C8 radiculopathy bilaterally which is mild in degree electricallyWestern [facility] HealthcareOptical coherence tomography study reporton 58-87-7280QUCQAtrium HealthOptical coherence tomography study reporton 07-31-2024 Radiology Study observation (narrative)[facility] HealthcarePerimetry studyon 95-38-5350XCQLAtrium HealthRadiology Study observation (narrative) [facility] HospitalCBCon 47-66-2357BEOAMYXY BAS0.0 10*3/uLNormal0.0-0.2[facility] CenterComment on above:Performed By: #### ACBC #### Testing performed at [address], [place] [address]LQOZEOYM EOS0.0 10*3/uLNormal0.0-0.7ARutgers - [facility] Comment on above:Performed By: #### ACBC #### Testing performed at [address], [place] [address]JFYNXUGA NEUTROPHIL COUNT2.4 10*3/uLNormal1.4-6.5ARutgers - University Behavioral HealthCareComment on above:Performed By: #### ACBC #### Testing performed at [address], [place] [address]Ziewhwool/100 WBC (Bld)0.3 %Normal0.0-2.0[facility] Comment on above:Performed By: #### ACBC #### Testing performed at [address], [place] [address]WXXHCEYKY DIFFNormalARutgers - University Behavioral HealthCareComment on above: Performed By: #### ACBC #### Testing performed at [address], [place] [address]Umgzlopjwsc/100 WBC (Bld)0.9 %Normal0.0-11.0[facility]Comment on above:Performed By: #### ACBC #### Testing performed at [address] [address]Bthmxfrluqq (Bld) [#/Vol]0.6 10*3/uLLow1.2-3.4ARutgers - University Behavioral HealthCareComment on above:Performed By: #### ACBC #### Testing performed at [address], [place] [address]Ycfawmbflss/100 WBC (Bld)17.6 %Low20.0-55.0[facility]Comment on above:Performed By: #### ACBC #### Testing performed at [address], [place] [address]Axqlslpfo (Bld) [#/Vol]0.5 10*3/uLNormal0.0-0.7ARutgers - University Behavioral HealthCareComment on above:Performed By: #### ACBC #### Testing performed at [address] [address]Udeyltkwh/100 WBC (Bld)14.6 %High0.0-10.0[facility] Comment on above:Performed By: #### ACBC #### Testing performed at [address] [address]Gwvwhprcvkz/100 WBC (Bld)66.6 %Wsxblq69.0-75.0[facility] HospitalComment on above:Performed By: #### ACBC #### Testing performed at [address] [address]Ilwrgyoclpd distribution width (RBC) [Ratio]14.2 %Normal 11.5-14.5ARutgers - University Behavioral HealthCareComment on above:Performed By: #### ACBC #### Testing performed at [address] [address]Wltgfnkmyw (Bld) [Volume fraction]27.6 %Low36.0-48.0[facility]Comment on above:Performed By: #### ACBC #### Testing performed at [address] [address]Njywwsrlqn (Bld) [Mass/Vol]9.2 g/dLLow12.0-16.0[facility]Comment on above:Performed By: #### ACBC #### Testing performed at [address] [place] [address]UMJ (RBC) [Entitic mass]34.3 jcJxfdwq16.0-35.0[facility] HospitalComment on above:Performed By: #### ACBC #### Testing performed at [address] [place] [address]WFUK (RBC) [Mass/Vol]33.4 g/tTYmzfay68.0-37.0[facility] HospitalComment on above:Performed By: #### ACBC #### Testing performed at [address] [address]TGJ (RBC) [Entitic vol]102.5 qLDeju24.0-100.0[facility] HospitalComment on above:Performed By: #### ACBC #### Testing performed at [address] [address]Mkdiikmn mean volume (Bld) [Entitic vol]7.3 fLLow7.4-11.0[facility]Comment on above:Performed By: #### ACBC #### Testing performed at [address] [address]Emezmkqva (Bld) [#/Vol]165 10*3/fKStxxuz169-626ZugshCapital Health System ([facility])Comment on above:Performed By: #### ACBC #### Testing performed at [address] [address]ABO (Bld) [#/Vol]2.69 10*6/uLLow4.0-5.4ARutgers [facility] HealthCare Comment on above:Performed By: #### ACBC #### Testing performed at [address] [address]ILY (Bld) [#/Vol]3.6 10*3/uLNormal3.6-11.0[facility] on above:Performed By: #### ACBC #### Testing performed at [address] [address]PNK FASTINGon 12-96-4476Lnmbd gap [Moles/Vol]7 mmol/LNormal [facility]Comment on above:Performed By: #### BMPF, ACBC #### Testing performed at [address] [address]Udrrbui [Mass/Vol]8.4 mg/dLNormal8.4-10.2AR[facility] Comment on above:Performed By: #### BMPF, ACBC #### Testing performed at [address] [address]Iosxkobr [Moles/Vol]106 mmol/ZNqavsa89-564PhvqkCapital Health System [facility] on above:Result Comment: Please note: Triglyceride levels of 600mg/dL or higher may positively bias chlorideresults by approximately 2.1 mmol Performed By: #### BMPF, ACBC #### Testing performed at [address] [address]ED2 [Moles/Vol]23 mmol/XUrivey90-65LhndeCapital Health System [facility]) Comment on above:Performed By: #### HERMELINDO ANGELES #### Testing performed at [address] [address]Gjltlrwabl [Mass/Vol]0.50 mg/dLLow0.70-1.20[facility]Comment on above:Performed By: #### HERMELINDO ANGELES #### Testing performed at [address] [address]HYG. GFR, Oasljwbr033 ml/min/1.73sq.[facility] CenterComment on above:Performed By: #### HERMELINDO ANGELES #### Testing performed at [address] [address]NDW. GFR,Non Lhwoxuzk667 ml/min/1.73sq.[facility] CenterComment on above:Performed By: #### HERMELINDO ANGELES #### Testing performed at [address] [address]PGZ InformationAverage GFR for 70+ years old = 75.NormalCapital Health System ([facility])Comment on above:Result Comment: Chronic Kidney disease, GFR = <60. Kidney failure, GFR = <15. The GFR estimate is not adjusted for extreme body surface area or acute process, nor has it been validated for women or ethnic groups other than and .Performed By: #### HERMELINDO ANGELES #### Testing performed at [address] [address]Mipfaho [Mass/Vol]125 mg/sNXuop73-273ZxjeyCapital Health System ([facility]) Comment on above:Result Comment: NORMAL <100 mg/dL PREDIABETES 101-126 mg/dL DIABETES 126 mg/dL or higherPerformed By: #### HERMELINDO ANGELES #### Testing performed at [address] [address]Cajzfyiti [Moles/Vol]3.4 mmol/LLow3.5-5.1AR[facility] Comment on above:Performed By: #### HERMELINDO ANGELES #### Testing performed at [address] [address]Spedeb [Moles/Vol]136 mmol/WTbl319-586ElfodCapital Health System ([facility]) Comment on above:Performed By: #### HERMELINDO ANGELES #### Testing performed at [address] [address]Ezvn nitrogen [Mass/Vol]15 mg/dLNormal7-20[facility] on above:Performed By: #### HERMELINDO ANGELES #### Testing performed at [address] [address]AXAid [id number] BAS0.0 10*3/uLNormal0.0-0.2ARutgers - University Behavioral HealthCareComment on above:Performed By: #### HERMELINDO ANGELES #### Testing performed at [address] [address]UIIGWFCG EOS0.0 10*3/uLNormal0.0-0.7ARutgers - University Behavioral HealthCare Comment on above:Performed By: #### HERMELINDO ANGELES #### Testing performed at [address] [address]CLSSHHCY NEUTROPHIL COUNT4.1 10*3/uLNormal1.4-6.5ARutgers - University Behavioral HealthCareComcorewell health greenville hospital on above:Performed By: #### HERMELINDO ANGELES #### Testing performed at [address] [address]Crmhrxrfn/100 WBC (Bld)0.1 %Normal0.0-2.0[facility] Comment on above:Performed By: #### HERMELINDO ANGELES #### Testing performed at [address] [address]NWAQMGZJG DIFFNormalARutgers - University Behavioral HealthCareComcorewell health greenville hospital on above: Performed By: #### HERMELINDO ANGELES #### Testing performed at [address] [address]Zbgorimosvk/100 WBC (Bld)0.0 %Normal0.0-11.0[facility] on above:Performed By: #### HERMELINDO ANGELES #### Testing performed at [address] [address]Gyplqxnpatj distribution width (RBC) [Ratio]14.3 %Normal 11.5-14.5AUniversity Hospital HospitalComment on above:Performed By: #### BRIDGETTE ACJOHN #### Testing performed at [address], [place] [address]Kstwmpskhg (Bld) [Volume fraction]30.1 %Low36.0-48.0[facility] HospitalComment on above:Performed By: #### BRIDGETTE ACBC #### Testing performed at [address], [place] [address]Smipbvxclf (Bld) [Mass/Vol]10.3 g/dLLow12.0-16.0[facility] HospitalComment on above:Performed By: #### BRIDGETTE ACJOHN #### Testing performed at [address] [address]Mytmhjpdyxy (Bld) [#/Vol]0.4 10*3/uLLow1.2-3.4AUniversity Hospital HospitalComment on above:Performed By: #### BRIDGETTE ACJOHN #### Testing performed at [address], [place] [address]Fuldxrwanye/100 WBC (Bld)8.1 %Low20.0-55.0[facility] HospitalComment on above:Performed By: #### BRIDGETTE ACJOHN #### Testing performed at [address] [place] [address]NQB (RBC) [Entitic mass]34.6 doQrxpmm88.0-35.0[facility] HospitalComment on above:Performed By: #### BMPF, ACBC #### Testing performed at [address], [place] [address]DOZU (RBC) [Mass/Vol]34.2 g/aSIdupng52.0-37.0[facility] HospitalComment on above:Performed By: #### BMPF, ACBC #### Testing performed at [address] [address]UCK (RBC) [Entitic vol]101.3 cMCdcz93.0-100.0[facility] HospitalComment on above:Performed By: #### BMPF, ACBC #### Testing performed at [address] [address]Tbzrrrmab (Bld) [#/Vol]0.4 10*3/uLNormal0.0-0.7ARutgers - University Behavioral HealthCareComment on above:Performed By: #### BMPF, ACBC #### Testing performed at [address] [address]Ivbzicmoa/100 WBC (Bld)8.1 %Normal0.0-10.0[facility] HospitalComment on above:Performed By: #### BMPF, ACBC #### Testing performed at [address] [address]Myshcqthejf/100 WBC (Bld)83.7 %High37.0-75.0[facility] HospitalComment on above:Performed By: #### BMPF, ACBC #### Testing performed at [address] [address]Zniajmfp mean volume (Bld) [Entitic vol]7.3 fLLow7.4-11.0[facility] HospitalComment on above:Performed By: #### BMPF, ACBC #### Testing performed at [address] [address]Bgkuzqwky (Bld) [#/Vol]181 10*3/pIDeeadg068-674Qqnpa Ontario HospitalComment on above:Performed By: #### BMPF, ACBC #### Testing performed at [address] [address]JYV (Bld) [#/Vol]2.97 10*6/uLLow4.0-5.4AUniversity Hospital Hospital Comment on above:Performed By: #### BMPF, ACBC #### Testing performed at [address] [address]TJE (Bld) [#/Vol]4.9 10*3/uLNormal3.6-11.0[facility] HospitalComment on above:Performed By: #### BMPF, ACBC #### Testing performed at [address] [address]KIK, EDIF, PLATELETon [id number] BASOPHIL COUNT0.0 10*3/uL0.0 - 0.2 10*3/uLAvita Health System Ontario HospitalBasophils/100 WBC (Bld)0.3 %0.0 - 2.0 %[facility] HospitalDifferential cell count method Nom (Bld)AUTO DIFF%[facility] HospitalEosinophils (Bld) [#/Vol]0.1 10*3/uL0.0 - 0.7 10*3/uLAvita Health System Ontario HospitalEosinophils/100 WBC (Bld)1.8 %0.0 - 11.0 %[facility] HospitalErythrocyte distribution width (RBC) [Ratio]14.5 %11.5 - 14.5 %[facility] HospitalHematocrit (Bld) [Volume fraction]34.7 %Low36.0 - 48.0 %[facility] HospitalHemoglobin (Bld) [Mass/Vol]11.3 g/dLPremier HealthInterpretation and review of laboratory resultsAbnormWadsworth-Rittman HospitalLymphocytes (Bld) [#/Vol]0.4 10*3/uLLow1.2 - 3.4 10*3/uLAvita Health System Ontario HospitalLymphocytes/100 WBC (Bld)11.1 %Low 20.0 - 55.0 %[facility] HospitalMCH (RBC) [Entitic mass]33.4 pg26.0 - 35.0 PG [facility] HospitalMCHC (RBC) [Mass/Vol]32.4 g/dLAvita Health System Ontario HospitalMCV (RBC) [Entitic vol]103.1 fLKettering Health Behavioral Medical CenterMonocytes (Bld) [#/Vol]0.4 10*3/uL 0.0 - 0.7 10*3/uLAvita Health System Ontario HospitalMonocytes/100 WBC (Bld)11.1 %High0.0 - 10.0 %[facility] HospitalNeutrophils (Bld) [#/Vol]2.6 10*3/uL1.4 - 6.5 10*3/uLAvita Health System Ontario HospitalNeutrophils/100 WBC (Bld)75.7 %High37.0 - 75.0 %[facility] Platelet mean volume (Bld) [Entitic vol]7.2 fLPremier HealthPlatelets (Bld) [#/Vol]175 10*3/uL130 - 400 10*3/[facility] HospitalRBC (Bld) [#/Vol] 3.37 10*6/uLLow4.0 - 5.4 10*6/[facility] HospitalWBC (Bld) [#/Vol]3.5 10*3/uL Low3.6 - 11.0 10*3/[facility] HospitalCOMPREHENSIVE METABOLIC PANELon 09-35-8594Mqrlqtu [Mass/Vol]3.8 G/dl3.5 - 5.0 G/dlAvita Health System Ontario HospitalAlbumin/Globulin [Mass ratio]1.7 {ratio}RATIOAvita Health System Ontario HospitalALP [Catalytic activity/Vol]61 U/[facility] HospitalALT [Catalytic activity/Vol]26 U/LNINFAvita Health System Ontario HospitalAST [Catalytic activity/Vol]36 U/[facility] Bilirubin [Mass/Vol]0.7 mg/dLAvita Health System Ontario HospitalCalcium [Mass/Vol]9.4 mg/dLAvita Health System Ontario HospitalChloride [Moles/Vol]104 mmol/[facility] HospitalComment on above: Please note: Triglyceride levels of 600mg/dL or higher may positively bias chloride results by approximately 2.1 mmolCO2 [Moles/Vol]28 mmol/[facility] HospitalCreatinine [Mass/Vol]0.60 mg/dLPremier HealthGFR COMMENTAverage GFR for 70+ years old = 75.[facility] HospitalComment on above:Chronic Kidney disease, GFR = <60. Kidney failure, GFR = <15. The GFR estimate is not adjusted for extreme body surface area or acute process, nor has it been validated for women or ethnic groups other than and . GFR/1.73 sq M.predicted among blacks MDRD (S/P/Bld) [Vol rate/Area]127 mL/min/{1.73_m2}ml/min/1.73sq.[facility] AdministrationGFR/1.73 sq M.predicted among non-blacks MDRD (S/P/Bld) [Vol rate/Area]105 mL/min/{1.73_m2}ml/min/1.73sq.m [facility] HospitalGlucose post fast [Mass/Vol]91 mg/dLAvita Health System [facility] Hospital Comment on above: NORMAL <100 mg/dL PREDIABETES 101-126 mg/dL DIABETES 126 mg/dL or higher Interpretation and review of laboratory resultsAbnormWadsworth-Rittman Hospital Potassium [Moles/Vol]3.9 mmol/[facility] SystemProtein [Mass/Vol]6.1 g/dLLow Green Cross Hospitalodium [Moles/Vol]135 mmol/LLoSt. Anthony's HospitalUrea nitrogen [Mass/Vol]12 mg/dLCleveland Clinic Fairview HospitalECGOrdered By: Delgado Huffman on [phone] Health Work Phone: HEMOGLOBIN A1Con [phone] [Mass/Vol]100 mg/dL [facility] HospitalHbA1c (Bld) [Mass fraction]5.1 %0 - 6 %[facility] Comment on above: NORMAL <5.7% PREDIABETES 5.7-6.4% DIABETES 6.5% OR HIGHER [facility] HospitalPROTIME-INRon [id number] Coag (PPP) [Relative time]0.94 {INR}0.85 - 1.10ASumma HealthComment on above: 2.0-3.0 THERAPEUTIC RANGE 2.5-3.5 MECHANICAL VALVE RANGE PT Coag (PPP) [Time]12.7 [facility] CampusCREEN: MRSA ONLY, NARES (ISOLATION SCREEN)on [id number] isol Org specific cx Ql (Nose) NegativeNEGSelect Medical Cleveland Clinic Rehabilitation Hospital, AvonTAPHYOCOCCUS AUREUS BY PCRNegativeNEGATIVE [facility] HospitalComment on above:TESTING PERFORMED BY [facility] URINALYSIS, MACROon [id number] Ql (U)NegativeNEGATIVEAvita Health System Ontario HospitalClarity (U)CLEARCLEARASumma HealthColor (U)YELLOWYELACMC Healthcare SystemGlucose Test strip (U) [Mass/Vol]NegativeNEGATIVE mg/dlAvita Health System [facility] Hospital Hemoglobin Ql (U)NegativeNEGATIVEAvita Health System Ontario HospitalKetones (U) [Mass/Vol] NegativeNEGATIVE mg/dlAvita Health System Ontario HospitalLeukocyte esterase Test strip Ql (U) NegativeNEGATIVEGrand Lake Joint Township District Memorial Hospital SystemNitrite Ql (U)NegativeNEGATIVEColor[facility] SystempH (U)7.0 [pH]5.0 - 7.0[facility] SystemProtein Ql (U)NegativeNEGATIVE mg/dlGreen Cross Hospitalpecific gravity (U) [Rel density]1.0151.010 - 1.025 [facility] HospitalUrobilinogen (U) [Mass/Vol]0.2 mg/dLWVUMedicine Barnesville Hospital SystemC3 and C4 COMPLEMENTon 07-65-5852Bdavruakmk C3, Edyia569 mg/dL Vvtuaz83-494Gst [facility] HospitalComment on above:Performed By: #### LIVER, LIPID, TSH, FT3, T4 #### [facility] [address] [place] [address] Dr. Frank HillsComplement C4, Serum36 mg/kQJyomym35-64ExtCleveland Clinic Union Hospital Comment on above:Performed By: #### LIVER, LIPID, TSH, FT3, T4 #### [facility] [address] [place] [address] Dr. Frank HuddlestonPLEMENT TOTAL (CH50)on 74-96-3171Yflanctfui, Total (CH50)>60 Normal>41The [facility]rick HospitalComment on above:Result Comment: Age Male Female [...] of range values.Performed By: #### CH50T #### [facility] [address] [place] [address] Dr. Frank Vazquez AUTO DIFFon [id number] #0.0 103/ulNormal0.0-0.1[facility] HospitalComment on above:Performed By: #### CBC #### [facility] [address] [place] [address] Dr. Yilan ChangBasophils/100 WBC (Bld)0.3 %Normal0.2-2.0The [facility] Comment on above:Performed By: #### CBC #### [facility] [address] [place] [address] Dr. Frank Cali #0.1 103/ulNormal0.0-0.7The [facility]rick HospitalComment on above: Performed By: #### CBC #### [facility] [address] [place] [address] Dr. Frank Patriciaosinophils/100 WBC (Bld)1.6 %Normal0.9-7.0The [facility] Comment on above:Performed By: #### CBC #### [facility] [address] [place] [address] Dr. Frank Patriciarythrocyte distribution width (RBC) [Ratio]13.6 %Kvtzkj22.0-15.0 The [facility]rick HospitalComment on above:Performed By: #### CBC #### [facility] [address] [place] [address] Dr. Frank HillsHematocrit (Bld) [Volume fraction]36.4 %Ujcvja86.0-48.0The [facility] HospitalComment on above:Performed By: #### CBC #### [facility] [address] [place] [address] Dr. Frank HillsHemoglobin (Bld) [Mass/Vol]11.8 g/dLCritically low12.0-16.0The [facility] HospitalComment on above:Performed By: #### CBC #### [facility] [address] [place] [address] Dr. Frank Smith #0.01 10e3/ulNormal0.00-0.03The [facility]rick HospitalComment on above:Performed By: #### CBC #### [facility] [address] [place] [address] Dr. Frank Smith %0.3 %Normal0.0-0.5The [facility] HospitalComment on above: Performed By: #### CBC #### [facility] [address] [place] [address] Dr. Frank Agarwal #0.6 103/ulCritically low1.2-3.8The [facility] Comment on above:Performed By: #### CBC #### [facility] [address] [address] [address] Frank Gonzalezhocytes/100 WBC (Bld)15.3 %Critically low20.5-60.0The [facility] HospitalComment on above:Performed By: #### CBC #### [facility] [address] [place] [address] Dr. Frank Baker DIFF REQNONormalThe [facility]itrick HospitalComment on above: Performed By: #### CBC #### [facility] [address] [place] [address] Dr. Frank Doran (RBC) [Entitic mass]33.2 mdKuqcks56.7-34.0The [facility] HospitalComment on above:Performed By: #### CBC #### [facility] [address] [place] [address] Dr. Frank Doran (RBC) [Mass/Vol]32.4 g/hRIsbmsl22.9-35.2The [facility] HospitalComment on above:Performed By: #### CBC #### [facility] [address] [place] [address] Dr. Frank Doran (RBC) [Entitic vol]102.5 fLCritically high81.0-99.0The [facility] HospitalComment on above:Performed By: #### CBC #### [facility] [address] [place] [address] Dr. Frank Ponce #0.5 103/ulNormal0.3-0.8The [facility] HospitalComment on above:Performed By: #### CBC #### [facility] [address] [place] [address] Dr. Frank Babinocytes/100 WBC (Bld)12.5 %Critically high1.7-12.0The [facility] HospitalComment on above:Performed By: #### CBC #### [facility] [address] [place] [address] Dr. Frank Redding #2.6 103/ulNormal1.4-6.5The [facility] HospitalComment on above:Performed By: #### CBC #### [facility] [address] [place] [address] Dr. Frank Jimenesutrophils/100 WBC (Bld)70.0 %Jadkds17.0-75.0The [facility] HospitalComment on above:Performed By: #### CBC #### [facility] [address] [place] [address] Dr. Frank HillsPlatelet mean volume (Bld) [Entitic vol]9.0 fLCritically low 9.5-13.5The [facility] on above:Performed By: #### CBC #### [facility] [address] [place] [address] Dr. Frakn HillsPLT192 103/xdUakmqu128-023Ghx [facility] HospitalComment on above: Performed By: #### CBC #### [facility] [address] [place] [address] Dr. Frank HillsRBC3.55 106/ulCritically low4.20-5.40[facility] on above:Performed By: #### CBC #### [facility] [address] [place] [address] Dr. Frank HillsWBC3.7 103/ulCritically low4.0-11.0The [facility] HospitalComment on above:Performed By: #### CBC #### [facility] [address] [place] [address] Dr. Frank HillsPROF 14(COMP METB)on 90-63-0333Yzkinxg [Mass/Vol]3.7 g/dLNormal 3.4-5.0[facility] on above:Performed By: #### LIVER, LIPID, TSH, FT3, T4 #### [facility] [address] [place] [address] Dr. Frank HillsAlbumin/Globulin [Mass ratio]1.2 {ratio}NormalThe Erendira HospitalComment on above:Performed By: #### LIVER, LIPID, TSH, FT3, T4 #### [facility] [address] [place] [address] Dr. Frank Chung [Catalytic activity/Vol]66 U/QYqalpq35-181Zah [facility] on above:Performed By: #### LIVER, LIPID, TSH, FT3, T4 #### [facility] [address] [place] [address] Dr. Frank Jung [Catalytic activity/Vol]29 U/QSdxmhw48-83Bfi The [facility] Hospitalment on above:Performed By: #### LIVER, LIPID, TSH, FT3, T4 #### [facility] [address] [place] [address] Dr. Frank Gan gap [Moles/Vol]11.6 mmol/LNormalCleveland Clinic Union Hospital Comment on above:Performed By: #### LIVER, LIPID, TSH, FT3, T4 #### [facility] [address] [place] [address] Dr. Frank Baker [Catalytic activity/Vol]27 U/UPifzsu40-25Ejq The [facility] Hospitalment on above:Performed By: #### LIVER, LIPID, TSH, FT3, T4 #### [facility] [address] [place] [address] Dr. Frank HillsBilirubin [Mass/Vol]0.7 mg/dLNormal0.2-1.0[facility] Comment on above:Performed By: #### LIVER, LIPID, TSH, FT3, T4 #### [facility] [address] [place] [address] Dr. Frank HillsCalcium [Mass/Vol]9.1 mg/dLNormal8.5-10.1[facility] Comment on above:Performed By: #### LIVER, LIPID, TSH, FT3, T4 #### [facility] [address] [place] [address] Dr. Frank HillsChloride [Moles/Vol]105 mmol/INgnprt97-786GyaCleveland Clinic Union Hospital Comment on above:Performed By: #### LIVER, LIPID, TSH, FT3, T4 #### [facility] [address] [place] [address] Dr. Frank HillsCO2 [Moles/Vol]29.5 mmol/NIcxpsl81.0-32.0[facility] Comment on above:Performed By: #### LIVER, LIPID, TSH, FT3, T4 #### [facility] [address] [place] [address] Dr. Frank HillsCreatinine [Mass/Vol]0.57 mg/dLNormal0.55-1.02[facility] HospitalComment on above:Performed By: #### LIVER, LIPID, TSH, FT3, T4 #### [facility] [address] [place] [address] Dr. Frank PatriciaGFR-AF SAUDI ARABIAN>60Normal>=60The [facility] HospitalComment on above:Performed By: #### LIVER, LIPID, TSH, FT3, T4 #### [facility] [address] [place] [address] Dr. Frank PatriciaGFR-NON AF SAUDI ARABIAN>60Normal>=60[facility] HospitalComment on above:Performed By: #### LIVER, LIPID, TSH, FT3, T4 #### [facility] [address] [place] [address] Dr. Frank HillsGlobulin (S) [Mass/Vol]3.1 g/dLNormalThe [facility] HospitalComment on above:Performed By: #### LIVER, LIPID, TSH, FT3, T4 #### [facility] [address] [place] [address] Dr. Frank HillsGlucose [Mass/Vol]95 mg/uELfjvbw17-079QdnCleveland Clinic Union Hospital Comment on above:Performed By: #### LIVER, LIPID, TSH, FT3, T4 #### [facility] [address] [place] [address] Dr. Frank HillsPotassium [Moles/Vol]5.1 mmol/LNormal3.5-5.1[facility] Comment on above:Performed By: #### LIVER, LIPID, TSH, FT3, T4 #### [facility] [address] [place] [address] Dr. Frank HillsProtein [Mass/Vol]6.8 g/dLNormal6.4-8.2The [facility] Comment on above:Performed By: #### LIVER, LIPID, TSH, FT3, T4 #### [facility] [address] [address] [address] Frank HillsSodium [Moles/Vol]141 mmol/LXwxuqx082-494Qsm [facility] Comment on above:Performed By: #### LIVER, LIPID, TSH, FT3, T4 #### [facility] [address] [place] [address] Dr. Frank HillsUrea nitrogen [Mass/Vol]13.0 mg/dLNormal7.0-18.0The [facility] HospitalComment on above:Performed By: #### LIVER, LIPID, TSH, FT3, T4 #### [facility] [address] [place] [address] Dr. Frank Noble nitrogen/Creatinine [Mass ratio]22.8 mg/mgNormalThe [facility]rick HospitalComment on above:Performed By: #### LIVER, LIPID, TSH, FT3, T4 #### [facility] [address] [place] [address] Dr. Frank Díaz RATE WESTERGRENon 59-04-7495FML RATE9 mm/hrNormal<=30The [facility] HospitalComment on above:Performed By: #### LIVER, LIPID, TSH, FT3, T4 #### [facility] [address] [place] [address] Dr. Frank Gray RANDOM W/MICROSCOPICon 26-75-4892ZHVOHATIDDIB SEENNormalNONE SEENCleveland Clinic Union HospitalComment on above:Performed By: #### LIVER, LIPID, TSH, FT3, T4 #### [facility] [address] [place] [address] Dr. Frank HillsBilirubin Ql (U)NegativeNormalNEGATIVECleveland Clinic Union Hospital Comment on above:Performed By: #### LIVER, LIPID, TSH, FT3, T4 #### [facility] [address] [address] [address] Frank Elam SEENNormalNONE SEENMemorial Hospital on above:Performed By: #### LIVER, LIPID, TSH, FT3, T4 #### [facility] [address] [address] [address] Frank Costaarity (U)CLEARNormalCLEARCleveland Clinic Union HospitalComment on above: Performed By: #### LIVER, LIPID, TSH, FT3, T4 #### [facility] [address] [address] [address] Frank Cornell (U)LT. YELLOWNormalYELLOWCleveland Clinic Union HospitalComcorewell health greenville hospital on above:Performed By: #### LIVER, LIPID, TSH, FT3, T4 #### [facility] [address] [address] [address] Frank HillsCrystals LM Nom (Urine sed)NONE SEENNormalNONE SEENCleveland Clinic Union HospitalComment on above:Performed By: #### LIVER, LIPID, TSH, FT3, T4 #### [facility] [address] [address] [address] Marie ChangEpithelial cells LM Ql (Urine sed)RARENormalNONE SEEN /RARECleveland Clinic Union HospitalComcorewell health greenville hospital on above:Performed By: #### LIVER, LIPID, TSH, FT3, T4 #### [facility] [address] [address] [address] Frank HillsGlucose Ql (U)NegativeNormalNEGATIVECleveland Clinic Hillcrest Hospitalment on above:Performed By: #### LIVER, LIPID, TSH, FT3, T4 #### [facility] [address] [address] [address] Frank HillsHemoglobin Ql (U)NegativeNormalNEGATIVEOhiohealth Van Wert Hospital on above:Performed By: #### LIVER, LIPID, TSH, FT3, T4 #### [facility] [address] [address] [address] Frank HillsKetones Ql (U)NegativeNormalNEGATIVECleveland Clinic Union HospitalComment on above:Performed By: #### LIVER, LIPID, TSH, FT3, T4 #### [facility] [address] [address] [address] Frank HillsLEUKOCYTESNegativeNormalNEGATIVEThe The [facility] Hospitalment on above:Performed By: #### LIVER, LIPID, TSH, FT3, T4 #### [facility] [address] [address] [address] Frank SchmidtCOUSNONCompa SEENNormalNONE SEENThe [facility]rick HospitalComment on above:Performed By: #### LIVER, LIPID, TSH, FT3, T4 #### [facility] [address] [address] [address] Frank Cantorite Ql (U)NegativeNormalNEGATIVEThe [facility]rick HospitalComment on above:Performed By: #### LIVER, LIPID, TSH, FT3, T4 #### [facility] [address] [place] [address] Dr. Frank HillspH (U)6.5 [pH]Normal5-9The The [facility] Hospitalment on above: Performed By: #### LIVER, LIPID, TSH, FT3, T4 #### [facility] [address] [address] [address] Frank RiveraCNCARMELITA SEENAbnormal0-2The [facility] on above: Performed By: #### LIVER, LIPID, TSH, FT3, T4 #### [facility] [address] [address] [address] Frank HillsSPEC GRAVITY1.477Qvxxni9.005-<=1.025The [facility] on above:Performed By: #### LIVER, LIPID, TSH, FT3, T4 #### [facility] [address] [address] [address] Frank Gray PROTEINNegativeNormalNEGATIVE/ TRACEThe [facility] Comment on above:Performed By: #### LIVER, LIPID, TSH, FT3, T4 #### [facility] [address] [address] [address] Frank Villeda Qn (U)0.2 {Flaquita'U}/dLNormal0.2 - 1.0The [facility] HospitalComment on above:Performed By: #### LIVER, LIPID, TSH, FT3, T4 #### [facility] [address] [address] [address] Frank BarajasBCNONCompa SEENNormalNONE SEENThe [facility] HospitalComment on above: Performed By: #### LIVER, LIPID, TSH, FT3, T4 #### [facility] [address] [address] [address] Frank HillsC3 and C4 COMPLEMENTon 73-57-3257Fpsnosigps C3, Kkqhg156 mg/dL Rqxlso42-913Qbj [facility] HospitalComment on above:Performed By: #### LIVER, LIPID, TSH, FT3, T4 #### [facility] [address] [address] [address] Frank HillsComplement C4, Serum33 mg/bURfwtmm83-84Qtf [facility] Comment on above:Performed By: #### LIVER, LIPID, TSH, FT3, T4 #### [facility] [address] [place] [address] Dr. Frank HillsCOMPLEMENT TOTAL (CH50)on 44-61-8327Zznwzvjsuk, Total (CH50)>60 Normal>41The [facility] HospitalComment on above:Result Comment: Age Male Female [...] #### LIVER, LIPID, TSH, FT3, T4 #### [facility] [address] [place] [address] Dr. Frank HillsCBC AUTO DIFFon 79-27-1223VEVB #0.0 103/ulNormal0.0-0.1The [facility]itrick HospitalComment on above:Performed By: #### LIVER, LIPID, TSH, FT3, T4 #### [facility] [address] [place] [address] Dr. Frank HillsBasophils/100 WBC (Bld)1.0 %Normal0.2-2.0The [facility] Comment on above:Performed By: #### LIVER, LIPID, TSH, FT3, T4 #### [facility] [address] [place] [address] Dr. Frank Cali #0.1 103/ulNormal0.0-0.7The [facility] HospitalComment on above: Performed By: #### LIVER, LIPID, TSH, FT3, T4 #### [facility] [address] [place] [address] Dr. Frank Patriciaosinophils/100 WBC (Bld)1.8 %Normal0.9-7.0[facility] Comment on above:Performed By: #### LIVER, LIPID, TSH, FT3, T4 #### [facility] [address] [place] [address] Dr. Frank Patriciarythrocyte distribution width (RBC) [Ratio]13.8 %Gyynvs06.0-15.0 The [facility] HospitalComment on above:Performed By: #### LIVER, LIPID, TSH, FT3, T4 #### [facility] [address] [place] [address] Dr. Frank HillsHematocrit (Bld) [Volume fraction]36.3 %Vcnxic67.0-48.0The [facility] HospitalComment on above:Performed By: #### LIVER, LIPID, TSH, FT3, T4 #### [facility] [address] [place] [address] Dr. Frank HillsHemoglobin (Bld) [Mass/Vol]11.9 g/dLCritically low12.0-16.0The [facility] HospitalComment on above:Performed By: #### LIVER, LIPID, TSH, FT3, T4 #### [facility] [address] [place] [address] Dr. Frank HillsIG #0.02 10e3/ulNormal0.00-0.03The [facility] HospitalComment on above:Performed By: #### LIVER, LIPID, TSH, FT3, T4 #### [facility] [address] [address] [address] Frank Smith %0.5 %Normal0.0-0.5The [facility] HospitalComment on above: Performed By: #### LIVER, LIPID, TSH, FT3, T4 #### [facility] [address] [address] [address] Frank Agarwal #0.7 103/ulCritically low1.2-3.8The [facility] Comment on above:Performed By: #### LIVER, LIPID, TSH, FT3, T4 #### [facility] [address] [place] [address] Dr. Frank Gonzalezhocytes/100 WBC (Bld)18.0 %Critically low20.5-60.0The [facility] HospitalComment on above:Performed By: #### LIVER, LIPID, TSH, FT3, T4 #### [facility] [address] [place] [address] Dr. Frank BarkerUAL DIFF REQNONormalThe [facility] HospitalComment on above: Performed By: #### LIVER, LIPID, TSH, FT3, T4 #### [facility] [address] [address] [address] Frank Doran (RBC) [Entitic mass]34.2 pgCritically high26.7-34.0The [facility] HospitalComment on above:Performed By: #### LIVER, LIPID, TSH, FT3, T4 #### [facility] [address] [place] [address] Dr. Frank Doran (RBC) [Mass/Vol]32.8 g/uGOqpabg46.9-35.2The [facility] HospitalComment on above:Performed By: #### LIVER, LIPID, TSH, FT3, T4 #### [facility] [address] [place] [address] Dr. Frank Doran (RBC) [Entitic vol]104.3 fLCritically high81.0-99.0The [facility] HospitalComment on above:Performed By: #### LIVER, LIPID, TSH, FT3, T4 #### [facility] [address] [address] [address] Frank Ponce #0.4 103/ulNormal0.3-0.8The [facility] HospitalComment on above:Performed By: #### LIVER, LIPID, TSH, FT3, T4 #### [facility] [address] [place] [address] Dr. Frank Babinocytes/100 WBC (Bld)10.0 %Normal1.7-12.0The [facility] Comment on above:Performed By: #### LIVER, LIPID, TSH, FT3, T4 #### [facility] [address] [place] [address] Dr. Frank Redding #2.7 103/ulNormal1.4-6.5The [facility]ment on above:Performed By: #### LIVER, LIPID, TSH, FT3, T4 #### [facility] [address] [place] [address] Dr. Frank Jimenesutrophils/100 WBC (Bld)68.7 %Lymdbw07.0-75.0The [facility] HospitalComment on above:Performed By: #### LIVER, LIPID, TSH, FT3, T4 #### [facility] [address] [place] [address] Dr. Frank HillsPlatelet mean volume (Bld) [Entitic vol]9.4 fLCritically low 9.5-13.5The [facility]ment on above:Performed By: #### LIVER, LIPID, TSH, FT3, T4 #### [facility] [address] [place] [address] Dr. Frank HillsPLT187 103/hjLovqoc125-524Tbp The [facility]ment on above: Performed By: #### LIVER, LIPID, TSH, FT3, T4 #### [facility] [address] [place] [address] Dr. Frank HillsRBC3.48 106/ulCritically low4.20-5.40The [facility] on above:Performed By: #### LIVER, LIPID, TSH, FT3, T4 #### [facility] [address] [place] [address] Dr. Frank HillsWBC3.9 103/ulCritically low4.0-11.0The [facility] on above:Performed By: #### LIVER, LIPID, TSH, FT3, T4 #### [facility] [address] [place] [address] Dr. Frank Blount 14(COMP METB)on [id number] [Mass/Vol]3.9 g/dLNormal 3.4-5.0The [facility] on above:Performed By: #### LIVER, LIPID, TSH, FT3, T4 #### [facility] [address] [place] [address] Dr. Frank HillsAlbumin/Globulin [Mass ratio]1.3 {ratio}NormalThe [facility] on above:Performed By: #### LIVER, LIPID, TSH, FT3, T4 #### [facility] [address] [place] [address] Dr. Frank Chung [Catalytic activity/Vol]63 U/CUceodo36-813Wqs [facility] on above:Performed By: #### LIVER, LIPID, TSH, FT3, T4 #### [facility] [address] [place] [address] Dr. Frank Jung [Catalytic activity/Vol]27 U/EUibcbg20-84Apc [facility] on above:Performed By: #### LIVER, LIPID, TSH, FT3, T4 #### [facility] [address] [place] [address] Dr. Frank Gan gap [Moles/Vol]8.4 mmol/LNormalThe [facility] on above:Performed By: #### LIVER, LIPID, TSH, FT3, T4 #### [facility] [address] [place] [address] Dr. Frank Baker [Catalytic activity/Vol]31 U/MTtenzf54-12Wca [facility]blee HospitalComment on above:Performed By: #### LIVER, LIPID, TSH, FT3, T4 #### [facility] [address] [address] [address] Frank HillsBilirubin [Mass/Vol]0.7 mg/dLNormal0.2-1.0The [facility] Comment on above:Performed By: #### LIVER, LIPID, TSH, FT3, T4 #### [facility] [address] [place] [address] Dr. Frank HillsCalcium [Mass/Vol]9.0 mg/dLNormal8.5-10.1The [facility] Comment on above:Performed By: #### LIVER, LIPID, TSH, FT3, T4 #### [facility] [address] [place] [address] Dr. Frank HillsChloride [Moles/Vol]102 mmol/PAkvssj82-737SlqCleveland Clinic [facility] Comment on above:Performed By: #### LIVER, LIPID, TSH, FT3, T4 #### [facility] [address] [place] [address] Dr. Frank HillsCO2 [Moles/Vol]30.8 mmol/RPrpqke56.0-32.0The [facility] Comment on above:Performed By: #### LIVER, LIPID, TSH, FT3, T4 #### [facility] [address] [place] [address] Dr. Frank HillsCreatinine [Mass/Vol]0.62 mg/dLNormal0.55-1.02The [facility] HospitalComment on above:Performed By: #### LIVER, LIPID, TSH, FT3, T4 #### [facility] [address] [place] [address] Dr. Frank PatriciaGFR-AF SAUDI ARABIAN>60Normal>=60The [facility] on above:Performed By: #### LIVER, LIPID, TSH, FT3, T4 #### [facility] [address] [place] [address] Dr. Frank PatriciaGFR-NON AF SAUDI ARABIAN>60Normal>=60The [facility] on above:Performed By: #### LIVER, LIPID, TSH, FT3, T4 #### [facility] [address] [place] [address] Dr. Frank HillsGlobulin (S) [Mass/Vol]3.1 g/dLNormChildren's Hospital of ColumbusComment on above:Performed By: #### LIVER, LIPID, TSH, FT3, T4 #### [facility] [address] [place] [address] Dr. Frank HillsGlucose [Mass/Vol]102 mg/fKDsrabq23-518Acg [facility] Comment on above:Performed By: #### LIVER, LIPID, TSH, FT3, T4 #### [facility] [address] [place] [address] Dr. Frank HillsPotassium [Moles/Vol]4.2 mmol/LNormal3.5-5.1The [facility] Comment on above:Performed By: #### LIVER, LIPID, TSH, FT3, T4 #### [facility] [address] [place] [address] Dr. Frank HillsProtein [Mass/Vol]7.0 g/dLNormal6.4-8.2[facility] Comment on above:Performed By: #### LIVER, LIPID, TSH, FT3, T4 #### [facility] [address] [place] [address] Dr. Frank HillsSodium [Moles/Vol]137 mmol/PXkvtwj664-651UmhCleveland Clinic Union Hospital Comment on above:Performed By: #### LIVER, LIPID, TSH, FT3, T4 #### [facility] [address] [place] [address] Dr. Frank HillsUrea nitrogen [Mass/Vol]15.0 mg/dLNormal7.0-18.0[facility] HospitalComment on above:Performed By: #### LIVER, LIPID, TSH, FT3, T4 #### [facility] [address] [place] [address] Dr. Frank HillsUrea nitrogen/Creatinine [Mass ratio]24.2 mg/mgNoSt. Anthony's HospitalComment on above:Performed By: #### LIVER, LIPID, TSH, FT3, T4 #### [facility] [address] [address] [address] Frank Díaz RATE ESSEX FELLSERGREN [id number] RATE8 mm/hrNormal<=30[facility] on above:Performed By: #### LIVER, LIPID, TSH, FT3, T4 #### [facility] [address] [address] [address] Frank Gray RANDOM W/MICROSCOPICon [id number] SEENNormalNONE SEENCleveland Clinic Union HospitalComment on above:Performed By: #### LIVER, LIPID, TSH, FT3, T4 #### [facility] [address] [address] [address] Frank Padgett Ql (U)NegativeNormalNEGATIVECleveland Clinic Union Hospital Comment on above:Performed By: #### LIVER, LIPID, TSH, FT3, T4 #### [facility] [address] [address] [address] Frank Elam SEENNormalNONE SEENCleveland Clinic Union HospitalComcorewell health [facility] hospital on above:Performed By: #### LIVER, LIPID, TSH, FT3, T4 #### [facility] [address] [address] [address] Frank Ness (U)CLEARNormalCLEARCleveland Clinic Union HospitalComcorewell health [facility] hospital on above: Performed By: #### LIVER, LIPID, TSH, FT3, T4 #### [facility] [address] [address] [address] Frank Cornell (U)LT. YELLOWNormalYELLOWCleveland Clinic Union HospitalComment on above:Performed By: #### LIVER, LIPID, TSH, FT3, T4 #### [facility] [address] [address] [address] Frank Castelan LM Nom (Urine sed)NONE SEENNormalNONE SEENCleveland Clinic Union HospitalComcorewell health greenville hospital on above:Performed By: #### LIVER, LIPID, TSH, FT3, T4 #### [facility] [address] [place] [address] Dr. Yilan ChangEpithelial cells LM Ql (Urine sed)NONE SEENNormalNONE SEEN /RARE The [facility] HospitalComment on above:Performed By: #### LIVER, LIPID, TSH, FT3, T4 #### [facility] [address] [address] [address] Frank HillsGlucose Ql (U)NegativeNormalNEGATIVECleveland Clinic Union HospitalComment on above:Performed By: #### LIVER, LIPID, TSH, FT3, T4 #### [facility] [address] [place] [address] Dr. Frank HillsHemoglobin Ql (U)NegativeNormalNEGATIVECleveland Clinic Union Hospital Comment on above:Performed By: #### LIVER, LIPID, TSH, FT3, T4 #### [facility] [address] [place] [address] Dr. Frank HillsKetones Ql (U)NegativeNormalNEGATIVECleveland Clinic Union HospitalComment on above:Performed By: #### LIVER, LIPID, TSH, FT3, T4 #### [facility] [address] [place] [address] Dr. Frank HillsLEUKOCYTESNegativeNormalNEGMercy Health Anderson HospitalComment on above:Performed By: #### LIVER, LIPID, TSH, FT3, T4 #### [facility] [address] [place] [address] Dr. Frank HillsMUCOUSNONE SEENNormalNONE SEENCleveland Clinic Union HospitalComment on above:Performed By: #### LIVER, LIPID, TSH, FT3, T4 #### [facility] [address] [place] [address] Dr. Frank HillsNitrite Ql (U)NegativeNormalNEGATIVECleveland Clinic Union HospitalComment on above:Performed By: #### LIVER, LIPID, TSH, FT3, T4 #### [facility] [address] [place] [address] Dr. Frank HillspH (U)6.5 [pH]Normal5-9The [facility] HospitalComment on above: Performed By: #### LIVER, LIPID, TSH, FT3, T4 #### [facility] [address] [address] [address] Frank العراقيBwylqYFQ5-4Cusrst9-8Ynd [facility] Hospitalment on above:Performed By: #### LIVER, LIPID, TSH, FT3, T4 #### [facility] [address] [place] [address] Dr. Frank HillsSPEC GRAVITY1.273Rbslqt1.005-<=1.025The [facility] HospitalComment on above:Performed By: #### LIVER, LIPID, TSH, FT3, T4 #### [facility] [address] [place] [address] Dr. Frank HillsUA PROTEINNegativeNormalNEGATIVE/ TRACEThe [facility] Comment on above:Performed By: #### LIVER, LIPID, TSH, FT3, T4 #### [facility] [address] [place] [address] Dr. Frank Michaudbilnikolay Qn (U)0.2 {Flaquita'U}/dLNormal0.2 - 1.0The [facility] on above:Performed By: #### LIVER, LIPID, TSH, FT3, T4 #### [facility] [address] [place] [address] Dr. Frank De Los Santos [facility] SEENCleveland Clinic Union HospitalComcorewell health green[facility] hospital on above: Performed By: #### LIVER, LIPID, TSH, FT3, T4 #### [facility] [address] [place] [address] Dr. Frank HillsINSULINon [id number] uIU/mLNormal2.6-24.9The [facility] HospitalComcorewell health greenville hospital on above:Performed By: #### LIVER, LIPID, TSH, FT3, T4 #### [facility] [address] [place] [address] Dr. Frank Vazquez W MANUAL DIFFon [id number]yeWsq [facility] HospitalComcorewell health [facility] hospital on above:Performed By: #### LIVER, LIPID, TSH, FT3, T4 #### [facility] [address] [place] [address] Dr. Frank KEITH #NormalCleveland Clinic Union HospitalComment on above: Performed By: #### LIVER, LIPID, TSH, FT3, T4 #### [facility] [address] [place] [address] Dr. Frank KEITH %NormalCleveland Clinic Union HospitalComment on above: Performed By: #### LIVER, LIPID, TSH, FT3, T4 #### [facility] [address] [place] [address] Dr. Frank Simons #Normal0.0-0.3The [facility] HospitalComment on above: Performed By: #### LIVER, LIPID, TSH, FT3, T4 #### [facility] [address] [place] [address] Dr. Frank Simons %Normal0-5The [facility] HospitalComment on above:Performed By: #### LIVER, LIPID, TSH, FT3, T4 #### [facility] [address] [place] [address] Dr. Frank Adler #0.00 103/ulNormal0.00-0.10The [facility] HospitalComcorewell health green[facility] hospital on above:Performed By: #### LIVER, LIPID, TSH, FT3, T4 #### [facility] [address] [place] [address] Dr. Frank Adler %0.0 %Critically low0.2-2.0The [facility] HospitalComcorewell health green[facility] hospital on above:Performed By: #### LIVER, LIPID, TSH, FT3, T4 #### [facility] [address] [place] [address] Dr. Frank Singer #NormalCleveland Clinic Union HospitalComment on above:Performed By: #### LIVER, LIPID, TSH, FT3, T4 #### [facility] [address] [place] [address] Dr. Frank Singer %NormalCleveland Clinic Union HospitalComment on above:Performed By: #### LIVER, LIPID, TSH, FT3, T4 #### [facility] [address] [place] [address] Dr. Frank HillsCORRECTED WBCNormal4.0-11.0[facility] Hospitalment on above: Performed By: #### LIVER, LIPID, TSH, FT3, T4 #### [facility] [address] [place] [address] Dr. Frank Heranndez #0.06 103/ulNormal0.00-0.70The [facility] Hospitalment on above:Performed By: #### LIVER, LIPID, TSH, FT3, T4 #### [facility] [address] [place] [address] Dr. Frank Hernandez%2.0 %Normal0.9-7.0The [facility]ment on above: Performed By: #### LIVER, LIPID, TSH, FT3, T4 #### [facility] [address] [place] [address] Dr. Frank HillsHCT35.6 %Critically low36.0-48.0The [facility]ment on above:Performed By: #### LIVER, LIPID, TSH, FT3, T4 #### [facility] [address] [place] [address] Dr. Frank HillsHGB11.4 g/dlCritically low12.0-16.0The [facility] on above:Performed By: #### LIVER, LIPID, TSH, FT3, T4 #### [facility] [address] [place] [address] Dr. Frank Mcgowan #0.48 103/ulCritically low1.20-3.80The [facility] Comment on above:Performed By: #### LIVER, LIPID, TSH, FT3, T4 #### [facility] [address] [place] [address] Dr. Frank Mcgowan%17.0 %Critically low20.5-60.0The [facility] on above:Performed By: #### LIVER, LIPID, TSH, FT3, T4 #### [facility] [address] [place] [address] Dr. Frank HillsMCH33.4 ehTmrcjs29.7-34.0The [facility]ment on above: Performed By: #### LIVER, LIPID, TSH, FT3, T4 #### [facility] [address] [address] [address] Frank DoranHC32.0 g/erXyvrvv24.9-35.2The [facility] HospitalComment on above:Performed By: #### LIVER, LIPID, TSH, FT3, T4 #### [facility] [address] [address] [address] Frank HillsMCV104.4 fLCritically high81.0-99.0The [facility] HospitalComment on above:Performed By: #### LIVER, LIPID, TSH, FT3, T4 #### [facility] [address] [place] [address] Dr. Frank ValeraOCYTE #NormalThe [facility] HospitalComment on above: Performed By: #### LIVER, LIPID, TSH, FT3, T4 #### [facility] [address] [place] [address] Dr. Frank ValeraOCYTE %NormalThe [facility] HospitalComment on above: Performed By: #### LIVER, LIPID, TSH, FT3, T4 #### [facility] [address] [place] [address] Dr. Frank AgrawalROCYTOSIS1+NormalThe [facility] HospitalComment on above: Performed By: #### LIVER, LIPID, TSH, FT3, T4 #### [facility] [address] [place] [address] Dr. Frank Schneider#0.28 103/ulCritically low0.30-0.80The [facility] Comment on above:Performed By: #### LIVER, LIPID, TSH, FT3, T4 #### [facility] [address] [place] [address] Dr. Frank Schneider%10.0 %Normal1.7-12.0The [facility] HospitalComment on above: Performed By: #### LIVER, LIPID, TSH, FT3, T4 #### [facility] [address] [place] [address] Dr. Frank HillsMPV8.9 fLCritically low9.5-13.5The [facility] on above:Performed By: #### LIVER, LIPID, TSH, FT3, T4 #### [facility] [address] [place] [address] Dr. Frank Edwards #NormalMemorial Hospital on above:Performed By: #### LIVER, LIPID, TSH, FT3, T4 #### [facility] [address] [place] [address] Dr. Frank Edwards %NormalMemorial Hospital on above:Performed By: #### LIVER, LIPID, TSH, FT3, T4 #### [facility] [address] [place] [address] Dr. Frank HillsNRBCNormalThTriHealth on above:Performed By: #### LIVER, LIPID, TSH, FT3, T4 #### [facility] [address] [place] [address] Dr. Frank LagosT169 103/qlGrrnjh145-386Gvt [facility] on above: Performed By: #### LIVER, LIPID, TSH, FT3, T4 #### [facility] [address] [place] [address] Dr. Frank RiveraC3.41 106/ulCritically low4.20-5.40[facility] on above:Performed By: #### LIVER, LIPID, TSH, FT3, T4 #### [facility] [address] [place] [address] Dr. Frnak HillsRDW14.1 %Fwgtqw81.0-15.0[facility] on above: Performed By: #### LIVER, LIPID, TSH, FT3, T4 #### [facility] [address] [place] [address] Dr. Frank Shah #1.99 103/ulNormal1.40-6.50[facility] on above:Performed By: #### LIVER, LIPID, TSH, FT3, T4 #### [facility] [address] [place] [address] Dr. Yilan ChangSEG %71.0 %Hrslxi84.0-75.0The [facility] HospitalComment on above: Performed By: #### LIVER, LIPID, TSH, FT3, T4 #### [facility] [address] [place] [address] Dr. Frank HillsWBC2.8 103/ulCritically low4.0-11.0The [facility] HospitalComment on above:Performed By: #### LIVER, LIPID, TSH, FT3, T4 #### [facility] [address] [place] [address] Dr. Frank HillsFREE T3on [id number] T32.61 pg/mlLNormal2.18-3.98The [facility] HospitalComment on above:Performed By: #### LIVER, LIPID, TSH, FT3, T4 #### [facility] [address] [place] [address] Dr. Frank HillsGLYCOHEMOGLOBIN A1Con [id number] RECOMMENDATIONSEE BELOWNormal The [facility] HospitalComcorewell health [facility] on above:Result Comment: ADA RECOMMENDED LIMIT 4.0 - 6.0 ADA THERAPEUTIC TARGET < 7.0 ACTION SUGGESTED > 7.0Performed By: #### A1C #### [facility] [address] [place] [address] Dr. Frank HillsGlucose [Mass/Vol]108 mg/dLNormalThe [facility] on above:Performed By: #### A1C #### [facility] [address] [place] [address] Dr. Frank HillsHbA1c (Bld) [Mass fraction]5.4 %Normal4.5-6.2The [facility] Hospitalment on above:Performed By: #### A1C #### [facility] [address] [place] [address] Dr. Frank Caballero [id number] [Mass/Vol]96.0 ug/lLKhtxds47.0-170.0The [facility] HospitalComment on above:Performed By: #### LIVER, LIPID, TSH, FT3, T4 #### [facility] [address] [place] [address] Dr. Frank KumarID PROFILEon [id number]-HDL RATIO NORMSProMedica Memorial HospitalComment on above:Result Comment: 3.3 - 4.4 LOW RISK 4.4 - 7.1 AVERAGE RISK 7.1 - 11.0 MODERATE RISK >11.0 HIGH RISKPerformed By: #### LIVER, LIPID, TSH, FT3, T4 #### [facility] [address] [address] [address] Frank HillsCholesterol [Mass/Vol]172 mg/dLNormal<=200[facility] Comment on above:Performed By: #### LIVER, LIPID, TSH, FT3, T4 #### [facility] [address] [address] [address] Frank Carsonesterol in HDL [Mass/Vol]66 mg/dLCritically whwv68-83KipCleveland Clinic Union HospitalComment on above:Performed By: #### LIVER, LIPID, TSH, FT3, T4 #### [facility] [address] [place] [address] Dr. Frank Carsonesterol in LDL [Mass/Vol]86.6 mg/dLGuernsey Memorial HospitalComment on above:Performed By: #### LIVER, LIPID, TSH, FT3, T4 #### [facility] [address] [address] [address] Frank Carsonesterbrook.total/Cholesterol in HDL [Mass ratio]2.6 {ratio} NormalCleveland Clinic Union HospitalComment on above:Performed By: #### LIVER, LIPID, TSH, FT3, T4 #### [facility] [address] [place] [address] Dr. Frank HillsHDIsra NORMAL> or = 60 mg/dl - LOW CARDIOVASCULAR RISK <40 mg/dl - HIGH CARDIOVASCULAR RISKGuernsey Memorial HospitalComcorewell health [facility] hospital on above:Performed By: #### LIVER, LIPID, TSH, FT3, T4 #### [facility] [address] [place] [address] Dr. Frank HillsLDL CALC NORMALSEE [facility] West HospitalComment on above:Result Comment: <100 mg/dl OPTIMAL 100 - 129 mg/dl NEAR OR ABOVE OPTIMAL 130 - 159 mg/dl BORDERLINE HIGH 160 - 189 mg/dl HIGH >190 mg/dl VERY HIGH Performed By: #### LIVER, LIPID, TSH, FT3, T4 #### [facility] [address] [place] [address] Dr. Frank HillsTriglyceride [Mass/Vol]97 mg/dLNormal<=150[facility] Comment on above:Performed By: #### LIVER, LIPID, TSH, FT3, T4 #### [facility] [address] [place] [address] Dr. Frank HillsVLDL CALC19.4 mg/dLNormalThe [facility] HospitalComment on above: Performed By: #### LIVER, LIPID, TSH, FT3, T4 #### [facility] [address] [place] [address] Dr. Frank Landaverde PROFILEon [id number] [Mass/Vol]3.5 g/dLNormal3.4-5.0 The [facility] HospitalComment on above:Performed By: #### LIVER, LIPID, TSH, FT3, T4 #### [facility] [address] [place] [address] Dr. Frank HillsAlbumin/Globulin [Mass ratio]1.2 {ratio}NormalCleveland Clinic Union HospitalComment on above:Performed By: #### LIVER, LIPID, TSH, FT3, T4 #### [facility] [address] [place] [address] Dr. Frank Chung [Catalytic activity/Vol]55 U/ICwgsmd29-583ZtfCleveland Clinic Union HospitalComment on above:Performed By: #### LIVER, LIPID, TSH, FT3, T4 #### [facility] [address] [place] [address] Dr. Frank Jung [Catalytic activity/Vol]34 U/TSiwjgu12-51TmcCleveland Clinic Union HospitalComment on above:Performed By: #### LIVER, LIPID, TSH, FT3, T4 #### [facility] [address] [place] [address] Dr. Frank Baker [Catalytic activity/Vol]40 U/LCritically lhkl76-28TwiCleveland Clinic Union HospitalComment on above:Performed By: #### LIVER, LIPID, TSH, FT3, T4 #### [facility] [address] [place] [address] Dr. Frank CorderoI, CONJUGATED0.2 mg/dLNormal0.0-0.2[facility] Comment on above:Performed By: #### LIVER, LIPID, TSH, FT3, T4 #### [facility] [address] [place] [address] Dr. Frank Corderoirubin [Mass/Vol]0.8 mg/dLNormal0.2-1.0[facility] Comment on above:Performed By: #### LIVER, LIPID, TSH, FT3, T4 #### [facility] [address] [place] [address] Dr. Frank HillsGlobulin (S) [Mass/Vol]2.9 g/dLNormalThe [facility] HospitalComment on above:Performed By: #### LIVER, LIPID, TSH, FT3, T4 #### [facility] [address] [place] [address] Dr. Frank HillsProtein [Mass/Vol]6.4 g/dLNormal6.4-8.2[facility] Comment on above:Performed By: #### LIVER, LIPID, TSH, FT3, T4 #### [facility] [address] [place] [address] Dr. Frank Schmid [id number] [Mass/Vol]6.70 ug/dLNormal4.80-13.90The [facility] HospitalComment on above:Performed By: #### LIVER, LIPID, TSH, FT3, T4 #### [facility] [address] [place] [address] Dr. Frank Francis 37-33-1410FYR3.804 uIU/mLNormal0.358-3.740The [facility] HospitalComment on above:Performed By: #### LIVER, LIPID, TSH, FT3, T4 #### [facility] [address] [address] [address] Frank HillsVITAMIN D 25 OHon [id number] D 25-OH50.7 ng/mLNUniversity Hospitals Elyria Medical CenterComment on above:Performed By: #### LIVER, LIPID, TSH, FT3, T4 #### [facility] [address] [address] [address] Frank Meneses [place] BELOWNoSt. Anthony's HospitalComment on above: Result Comment: <20 ng/mL Vit D deficient 20 - <30 ng/mL Vit D insufficient 30 - 100 ng/mL Vit D sufficient >100 ng/mL Potential ToxicityPerformed By: #### LIVER, LIPID, TSH, FT3, T4 #### [facility] [address] [place] [address] Dr. Frank HillsMG MAMM SCREEN 3D BO CADon [id number] MAMM SCREEN 3D BO CAD Patient: DANYELLE HASKINS Exam Date: 08/31/2022 : 1955 Gender:F Ordering : DR JACK LANDAVERDE . Admission #: [id number] Family : DR YULISA BARTES . Order #: [id number] CLICK HERE TO VIEW EXAM RADIOLOGY REPORT [...] thyroid cancer at age 48. LOCATION: [facility] BREAST COMPOSITION: Scattered areas fibroglandular density. [...] by: Lisy Sandoval MD on 08/31/2022 at 11:14[facility] HospitalXR DEXA BONE DENSITYon [id number] DEXA BONE DENSITYEXAMINATION: XR DEXA BONE DENSITY, 08/27/2022 9:03 AM EDT HISTORY: Senile osteoporosis COMPARISON: 2017 TECHNIQUE: Dual-energy X-ray absorptiometry (DEXA) bone density study performed for the axial skeleton. FINDINGS: Bone mineral density of the left femoral trochanter measures 0.581 g/sq cm. T score -2.3. WHO classification osteopenia IMPRESSION: Osteopenia. Moderate fracture risk Electronically authenticated by: LISY SANDOVAL Date: 2022-08-27 18:41[facility] HospitalCOMPLEMENT TOTAL (CH50)on 01-66-9516Pnxwgwjigt, Total (CH50)>60 Normal>41The [facility] HospitalComment on above:Result Comment: Age Male Female [...] #### LIVER, LIPID, TSH, FT3, T4 #### [facility] [address] [place] [address] Dr. Frank HillsC3 and C4 COMPLEMENTon 73-58-5040Shgwnwrdcy C3, Lnqbh633 mg/dL Uujlkd64-839Ruz [facility] HospitalComment on above:Performed By: #### LIVER, LIPID, TSH, FT3, T4 #### [facility] [address] [place], [place] [address] Dr. Frank HillsComplement C4, Serum38 mg/hMAscmky17-05Uzw [facility] Comment on above:Performed By: #### LIVER, LIPID, TSH, FT3, T4 #### [facility] [address] [address] [address] Frank HillsCBC AUTO DIFFon [id number] #0.0 103/ulNormal0.0-0.1The [facility] HospitalComment on above:Performed By: #### CBC #### [facility] [address] [place] [address] Dr. Frank HillsBasophils/100 WBC (Bld)0.9 %Normal0.2-2.0[facility] Comment on above:Performed By: #### CBC #### [facility] [address] [place] [address] Dr. Frank Cali #0.1 103/ulNormal0.0-0.7The [facility] HospitalComment on above: Performed By: #### CBC #### [facility] [address] [place] [address] Dr. Frank Patriciaosinophils/100 WBC (Bld)3.4 %Normal0.9-7.0[facility] Comment on above:Performed By: #### CBC #### [facility] [address] [place] [address] Dr. Frank Patriciarythrocyte distribution width (RBC) [Ratio]13.8 %Xhtwem73.0-15.0 The [facility]itrick HospitalComment on above:Performed By: #### CBC #### [facility] [address] [place] [address] Dr. Frank HillsHematocrit (Bld) [Volume fraction]36.6 %Uvmsrs97.0-48.0The [facility] HospitalComment on above:Performed By: #### CBC #### [facility] [address] [place] [address] Dr. Frank HillsHemoglobin (Bld) [Mass/Vol]11.8 g/dLCritically low12.0-16.0The [facility] HospitalComment on above:Performed By: #### CBC #### [facility] [address] [place] [address] Dr. Farnk Smith #0.01 10e3/ulNormal0.00-0.03Cleveland Clinic Union HospitalComment on above:Performed By: #### CBC #### [facility] [address] [address] [address] Frank Smith %0.3 %Normal0.0-0.5The [facility] HospitalComment on above: Performed By: #### CBC #### [facility] [address] [place] [address] Dr. Frank Agarwal #0.6 103/ulCritically low1.2-3.8The [facility] Comment on above:Performed By: #### CBC #### [facility] [address] [place] [address] Dr. Frank Gonzalezhocytes/100 WBC (Bld)18.1 %Critically low20.5-60.0The [facility] HospitalComment on above:Performed By: #### CBC #### [facility] [address] [place] [address] Dr. Frank BarkerUAL DIFF REQNONormalThe [facility] HospitalComment on above: Performed By: #### CBC #### [facility] [address] [place] [address] Dr. Frank Doran (RBC) [Entitic mass]33.6 ciRxymkq62.7-34.0The [facility] HospitalComment on above:Performed By: #### CBC #### [facility] [address] [place] [address] Dr. Frank Doran (RBC) [Mass/Vol]32.2 g/xXQuavth53.9-35.2The [facility] HospitalComment on above:Performed By: #### CBC #### [facility] [address] [place] [address] Dr. Frank Doran (RBC) [Entitic vol]104.3 fLCritically high81.0-99.0The [facility] HospitalComment on above:Performed By: #### CBC #### [facility] [address] [place] [address] Dr. Frank Ponce #0.4 103/ulNormal0.3-0.8The [facility] HospitalComment on above:Performed By: #### CBC #### [facility] [address] [address] [address] Frank Babinocytes/100 WBC (Bld)11.2 %Normal1.7-12.0The [facility] Comment on above:Performed By: #### CBC #### [facility] [address] [place] [address] Dr. Frank JimenesUT #2.3 103/ulNormal1.4-6.5The [facility] HospitalComment on above:Performed By: #### CBC #### [facility] [address] [place] [address] Dr. Frank Jimenesutrophils/100 WBC (Bld)66.1 %Fiowpu85.0-75.0The [facility] HospitalComment on above:Performed By: #### CBC #### [facility] [address] [place] [address] Dr. Frank Mastersonlet mean volume (Bld) [Entitic vol]8.9 fLCritically low 9.5-13.5The [facility] HospitalComment on above:Performed By: #### CBC #### [facility] [address] [place] [address] Dr. Frank HillsPLT213 103/naUztwjf221-900Fff [facility] HospitalComment on above: Performed By: #### CBC #### [facility] [address] [place] [address] Dr. Frank HillsRBC3.51 106/ulCritically low4.20-5.40The [facility] HospitalComment on above:Performed By: #### CBC #### [facility] [address] [place] [address] Dr. Frank HillsWBC3.5 103/ulCritically low4.0-11.0The [facility] HospitalComment on above:Performed By: #### CBC #### [facility] [address] [place] [address] Dr. Frank Blount 14(COMP METB)on 83-78-2384Kqxwffj [Mass/Vol]3.7 g/dLNormal 3.4-5.0The [facility] HospitalComment on above:Performed By: #### LIVER, LIPID, TSH, FT3, T4 #### [facility] [address] [place] [address] Dr. Frank HillsAlbumin/Globulin [Mass ratio]1.2 {ratio}NormalThe [facility] HospitalComment on above:Performed By: #### LIVER, LIPID, TSH, FT3, T4 #### [facility] [address] [place] [address] Dr. Frank Chung [Catalytic activity/Vol]59 U/NUpzptt26-657Zqu [facility] HospitalComcorewell health green[facility] hospital on above:Performed By: #### LIVER, LIPID, TSH, FT3, T4 #### [facility] [address] [place] [address] Dr. Frank Jung [Catalytic activity/Vol]23 U/SOxwhov99-55Qri [facility] HospitalComment on above:Performed By: #### LIVER, LIPID, TSH, FT3, T4 #### [facility] [address] [place] [address] Dr. Frank Gan gap [Moles/Vol]10.2 mmol/LNormalCleveland Clinic Union Hospital Comment on above:Performed By: #### LIVER, LIPID, TSH, FT3, T4 #### [facility] [address] [place] [address] Dr. Frank Baker [Catalytic activity/Vol]24 U/ZTxszcj40-87Tio [facility] on above:Performed By: #### LIVER, LIPID, TSH, FT3, T4 #### [facility] [address] [place] [address] Dr. Frank HillsBilirubin [Mass/Vol]0.6 mg/dLNormal0.2-1.0[facility] Comment on above:Performed By: #### LIVER, LIPID, TSH, FT3, T4 #### [facility] [address] [place] [address] Dr. Frank HillsCalcium [Mass/Vol]8.9 mg/dLNormal8.5-10.1[facility] Comment on above:Performed By: #### LIVER, LIPID, TSH, FT3, T4 #### [facility] [address] [place] [address] Dr. Frank HillsChloride [Moles/Vol]105 mmol/NHjpkdg49-127Xmm [facility] Comment on above:Performed By: #### LIVER, LIPID, TSH, FT3, T4 #### [facility] [address] [place] [address] Dr. Frank HillsCO2 [Moles/Vol]30.0 mmol/IFlrcqe26.0-32.0The [facility] Comment on above:Performed By: #### LIVER, LIPID, TSH, FT3, T4 #### [facility] [address] [place] [address] Dr. Frank HillsCreatinine [Mass/Vol]0.64 mg/dLNormal0.55-1.02[facility] Clinic Union HospitalComment on above:Performed By: #### LIVER, LIPID, TSH, FT3, T4 #### [facility] [address] [place] [address] Dr. Frank PatriciaGFR-AF SAUDI ARABIAN>60Normal>=60The [facility] HospitalComment on above:Performed By: #### LIVER, LIPID, TSH, FT3, T4 #### [facility] [address] [place] [address] Dr. Frank Rodriguez-NON AF SAUDI ARABIAN>60Normal>=60C[facility] Clinic Union HospitalComment on above:Performed By: #### LIVER, LIPID, TSH, FT3, T4 #### [facility] [address] [place] [address] Dr. Frank HillsGlobulin (S) [Mass/Vol]3.0 g/dLNormalThe [facility] HospitalComment on above:Performed By: #### LIVER, LIPID, TSH, FT3, T4 #### [facility] [address] [place] [address] Dr. Frank HillsGlucose [Mass/Vol]97 mg/sLZtkgoh34-504VdrCleveland Clinic Union Hospital Comment on above:Performed By: #### LIVER, LIPID, TSH, FT3, T4 #### [facility] [address] [place] [address] Dr. Frank HillsPotassium [Moles/Vol]4.2 mmol/LNormal3.5-5.1The [facility] Comment on above:Performed By: #### LIVER, LIPID, TSH, FT3, T4 #### [facility] [address] [place] [address] Dr. Frank HillsProtein [Mass/Vol]6.7 g/dLNormal6.4-8.2The [facility] Comment on above:Performed By: #### LIVER, LIPID, TSH, FT3, T4 #### [facility] [address] [place] [address] Dr. Frank HillsSodium [Moles/Vol]141 mmol/VNlrtti145-495Xgf [facility] Comment on above:Performed By: #### LIVER, LIPID, TSH, FT3, T4 #### [facility] [address] [place] [address] Dr. Frank HillsUrea nitrogen [Mass/Vol]13.0 mg/dLNormal7.0-18.0The [facility] HospitalComment on above:Performed By: #### LIVER, LIPID, TSH, FT3, T4 #### [facility] [address] [place] [address] Dr. Frank Noble nitrogen/Creatinine [Mass ratio]20.3 mg/mgNormalThe [facility] HospitalComment on above:Performed By: #### LIVER, LIPID, TSH, FT3, T4 #### [facility] [address] [place] [address] Dr. Frank Díaz RATE WESTERGRENon 40-65-9469ZWH RATE8 mm/hrNormal<=30The [facility] HospitalComment on above:Performed By: #### LIVER, LIPID, TSH, FT3, T4 #### [facility] [address] [place] [address] Dr. Frank Gray RANDOM W/MICROSCOPICon 51-47-4606OIISFQCZFBXP SEENNormalNONE SEENThe [facility] HospitalComment on above:Performed By: #### LIVER, LIPID, TSH, FT3, T4 #### [facility] [address] [address] [address] Frank HillsBilirubin Ql (U)NegativeNormalNEGMercy Health Anderson Hospital Comment on above:Performed By: #### LIVER, LIPID, TSH, FT3, T4 #### [facility] [address] [address] [address] Frank Elam SEENNormalNONE SEENCleveland Clinic Union HospitalComcorewell health greenville hospital on above:Performed By: #### LIVER, LIPID, TSH, FT3, T4 #### [facility] [address] [address] [address] Frank HillsClarity (U)CLEARNormalCLEARCleveland Clinic Union HospitalComment on above: Performed By: #### LIVER, LIPID, TSH, FT3, T4 #### [facility] [address] [place] [address] Dr. Frank Cornell (U)LT. YELLOWNormalYGood Samaritan HospitalComment on above:Performed By: #### LIVER, LIPID, TSH, FT3, T4 #### [facility] [address] [place] [address] Dr. Frank HillsCrystals LM Nom (Urine sed)NONE SEENNormalNONE SEENCleveland Clinic Union HospitalComcorewell health greenville hospital on above:Performed By: #### LIVER, LIPID, TSH, FT3, T4 #### [facility] [address] [place] [address] Dr. Marie ChangEpithelial cells LM Ql (Urine sed)FEWAbnormalNONE SEEN /RARECleveland Clinic Union HospitalComcorewell health greenville hospital on above:Performed By: #### LIVER, LIPID, TSH, FT3, T4 #### [facility] [address] [place] [address] Dr. Frank HillsGlucose Ql (U)NegativeNormalNEGATIVECleveland Clinic Union HospitalComcorewell health greenville hospital on above:Performed By: #### LIVER, LIPID, TSH, FT3, T4 #### [facility] [address] [address] [address] Frank HillsHemoglobin Ql (U)NegativeNormalNEGMercy Health Anderson Hospital Comment on above:Performed By: #### LIVER, LIPID, TSH, FT3, T4 #### [facility] [address] [address] [address] Frank Kerr Ql (U)NegativeNormalNEGATIVECleveland Clinic Hillcrest Hospitalment on above:Performed By: #### LIVER, LIPID, TSH, FT3, T4 #### [facility] [address] [address] [address] Frank RodriguezOCYTESTRACEAbnormalNEGATIVEThe [facility] HospitalComment on above:Performed By: #### LIVER, LIPID, TSH, FT3, T4 #### [facility] [address] [address] [address] Frank Calle SEENNormalNONE SEENCleveland Clinic Union HospitalComment on above:Performed By: #### LIVER, LIPID, TSH, FT3, T4 #### [facility] [address] [address] [address] Frank Nieves Ql (U)NegativeNormalNEGATIVEThe [facility] HospitalComment on above:Performed By: #### LIVER, LIPID, TSH, FT3, T4 #### [facility] [address] [address] [address] Frank Garcia (U)6.5 [pH]Normal5-9The [facility] HospitalComment on above: Performed By: #### LIVER, LIPID, TSH, FT3, T4 #### [facility] [address] [address] [address] Frank HillsDwcfdZKI1-4Pgvkuz8-2Afg [facility] HospitalComment on above:Performed By: #### LIVER, LIPID, TSH, FT3, T4 #### [facility] [address] [address] [address] Frank HillsSPEC GRAVITY1.756Poeouq0.005-<=1.025The [facility] on above:Performed By: #### LIVER, LIPID, TSH, FT3, T4 #### [facility] [address] [address] [address] Frank Gray PROTEINNegativeNormalNEGATIVE/ TRACEThe [facility] Comment on above:Performed By: #### LIVER, LIPID, TSH, FT3, T4 #### [facility] [address] [address] [address] Frank Villeda Qn (U)0.2 {Flaquita'U}/dLNormal0.2 - 1.0The The [facility] Hospitalment on above:Performed By: #### LIVER, LIPID, TSH, FT3, T4 #### [facility] [address] [address] [address] Frank HillsWBC0-2AbnormalNONE SEENThe [facility] HospitalComment on above: Performed By: #### LIVER, LIPID, TSH, FT3, T4 #### [facility] [address] [address] [address] Frank HillsC3 and C4 COMPLEMENTon 02-92-8600Weoljycevh C3, Hlrky902 mg/dL Critically fkgm54-866Gie [facility] HospitalComment on above:Performed By: #### LIVER, LIPID, TSH, FT3, T4 #### [facility] [address] [address] [address] Frank HillsComplement C4, Serum40 mg/dLCritically odxn67-58Xsc The [facility] Hospitalment on above:Performed By: #### LIVER, LIPID, TSH, FT3, T4 #### [facility] [address] [address] [address] Frank HillsCOMPLEMENT TOTAL (CH50)on 97-83-3946Mgmocwfhza, Total (CH50)>60 Normal>41The [facility] on above:Result Comment: Age Male Female [...] #### LIVER, LIPID, TSH, FT3, T4 #### [facility] [address] [place] [address] Dr. Frank Vazquez AUTO DIFFon [id number] #0.0 103/ulNormal0.0-0.1The [facility] HospitalComment on above:Performed By: #### LIVER, LIPID, TSH, FT3, T4 #### [facility] [address] [place] [address] Dr. Frank HillsBasophils/100 WBC (Bld)0.4 %Normal0.2-2.0The [facility] Comment on above:Performed By: #### LIVER, LIPID, TSH, FT3, T4 #### [facility] [address] [place] [address] Dr. Marie ChangEO #0.1 103/ulNormal0.0-0.7The [facility] HospitalComment on above: Performed By: #### LIVER, LIPID, TSH, FT3, T4 #### [facility] [address] [place] [address] Dr. Frank Patriciaosinophils/100 WBC (Bld)1.7 %Normal0.9-7.0The [facility] Comment on above:Performed By: #### LIVER, LIPID, TSH, FT3, T4 #### [facility] [address] [place] [address] Dr. Frank Patriciarythrocyte distribution width (RBC) [Ratio]13.2 %Eieaux09.0-15.0 The [facility] HospitalComment on above:Performed By: #### LIVER, LIPID, TSH, FT3, T4 #### [facility] [address] [place] [address] Dr. Frank HillsHematocrit (Bld) [Volume fraction]39.6 %Beqyzz53.0-48.0The [facility] HospitalComment on above:Performed By: #### LIVER, LIPID, TSH, FT3, T4 #### [facility] [address] [place] [address] Dr. Frank HillsHemoglobin (Bld) [Mass/Vol]12.7 g/fABxxucc49.0-16.0The [facility] HospitalComment on above:Performed By: #### LIVER, LIPID, TSH, FT3, T4 #### [facility] [address] [place] [address] Dr. Frank Smith #0.02 10e3/ulNormal0.00-0.03The [facility] HospitalComment on above:Performed By: #### LIVER, LIPID, TSH, FT3, T4 #### [facility] [address] [place] [address] Dr. Frank Smith %0.4 %Normal0.0-0.5The [facility] HospitalComment on above: Performed By: #### LIVER, LIPID, TSH, FT3, T4 #### [facility] [address] [place] [address] Dr. Frank Agarwal #0.9 103/ulCritically low1.2-3.8The [facility] Comment on above:Performed By: #### LIVER, LIPID, TSH, FT3, T4 #### [facility] [address] [place] [address] Dr. Frank Gonzalezhocytes/100 WBC (Bld)17.3 %Critically low20.5-60.0The [facility] HospitalComment on above:Performed By: #### LIVER, LIPID, TSH, FT3, T4 #### [facility] [address] [place] [address] Dr. Frakn BarkerUAL DIFF REQNONormalThe [facility] HospitalComment on above: Performed By: #### LIVER, LIPID, TSH, FT3, T4 #### [facility] [address] [place] [address] Dr. Frank [facility]COL[facility] (RBC) [Entitic mass]33.7 ukTvxiax53.7-34.0The [facility] HospitalComment on above:Performed By: #### LIVER, LIPID, TSH, FT3, T4 #### [facility] [address] [place] [address] Dr. Frank Doran (RBC) [Mass/Vol]32.1 g/yZIererz73.9-35.2The [facility] HospitalComment on above:Performed By: #### LIVER, LIPID, TSH, FT3, T4 #### [facility] [address] [place] [address] Dr. Frank Sparks (RBC) [Entitic vol]105.0 fLCritically high81.0-99.0The [facility] HospitalComment on above:Performed By: #### LIVER, LIPID, TSH, FT3, T4 #### [facility] [address] [place] [address] Dr. Frank Ponce #0.5 103/ulNormal0.3-0.8The [facility] HospitalComment on above:Performed By: #### LIVER, LIPID, TSH, FT3, T4 #### [facility] [address] [place] [address] Dr. Frank Babinocytes/100 WBC (Bld)8.9 %Normal1.7-12.0The [facility] Comment on above:Performed By: #### LIVER, LIPID, TSH, FT3, T4 #### [facility] [address] [place] [address] Dr. Frank Redding #3.7 103/ulNormal1.4-6.5The [facility] HospitalComment on above:Performed By: #### LIVER, LIPID, TSH, FT3, T4 #### [facility] [address] [place] [address] Dr. Frank Jimenesutrophils/100 WBC (Bld)71.3 %Kmaupd14.0-75.0The The [facility] Hospitalment on above:Performed By: #### LIVER, LIPID, TSH, FT3, T4 #### [facility] [address] [place] [address] Dr. Frank Mastersonlet mean volume (Bld) [Entitic vol]8.9 fLCritically low 9.5-13.5The The [facility] Hospitalment on above:Performed By: #### LIVER, LIPID, TSH, FT3, T4 #### [facility] [address] [place] [address] Dr. Frank HillsPLT198 103/sdUdyrop333-278Aey [facility] HospitalComment on above: Performed By: #### LIVER, LIPID, TSH, FT3, T4 #### [facility] [address] [place], [place] [address] Dr. Frank HillsRBC3.77 106/ulCritically low4.20-5.40The [facility] on above:Performed By: #### LIVER, LIPID, TSH, FT3, T4 #### [facility] [address] [address] [address] Frank HillsWBC5.2 103/ulNormal4.0-11.0The [facility] on above: Performed By: #### LIVER, LIPID, TSH, FT3, T4 #### [facility] [address] [address] [address] Frank HillsMRI BRAIN WO CONon [id number] BRAIN WO CONEXAMINATION: MRI BRAIN WO CON, [...] Electronically authenticated by: CHARO MAY Date: 2022-04-20 16:44[facility] HospitalPROF 14(COMP METB)on 32-76-1003Oepzfwx [Mass/Vol]4.0 g/dLNormal 3.4-5.0The [facility] HospitalComment on above:Performed By: #### LIVER, LIPID, TSH, FT3, T4 #### [facility] [address] [place] [address] Dr. Frank HillsAlbumin/Globulin [Mass ratio]1.1 {ratio}NormalThe [facility] HospitalComment on above:Performed By: #### LIVER, LIPID, TSH, FT3, T4 #### [facility] [address] [place] [address] Dr. Frank Chung [Catalytic activity/Vol]68 U/KWozzck66-970Yqt [facility] HospitalComcorewell health [facility] on above:Performed By: #### LIVER, LIPID, TSH, FT3, T4 #### [facility] [address] [place] [address] Dr. Frank Jung [Catalytic activity/Vol]35 U/OQxfxsh91-26Lhq [facility] HospitalComment on above:Performed By: #### LIVER, LIPID, TSH, FT3, T4 #### [facility] [address] [place] [address] Dr. Frank Estradaon gap [Moles/Vol]10.1 mmol/LNormalCleveland Clinic Union Hospital Comment on above:Performed By: #### LIVER, LIPID, TSH, FT3, T4 #### [facility] [address] [place] [address] Dr. Farnk Baker [Catalytic activity/Vol]31 U/FDdfont25-09Sds [facility] on above:Performed By: #### LIVER, LIPID, TSH, FT3, T4 #### [facility] [address] [place] [address] Dr. Frank HillsBilirubin [Mass/Vol]0.9 mg/dLNormal0.2-1.0The [facility] Comment on above:Performed By: #### LIVER, LIPID, TSH, FT3, T4 #### [facility] [address] [place] [address] Dr. Frank HillsCalcium [Mass/Vol]9.0 mg/dLNormal8.5-10.1[facility] Comment on above:Performed By: #### LIVER, LIPID, TSH, FT3, T4 #### [facility] [address] [address] [address] Frank HillsChloride [Moles/Vol]104 mmol/NQrfium27-637JcvCleveland Clinic Union Hospital Comment on above:Performed By: #### LIVER, LIPID, TSH, FT3, T4 #### [facility] [address] [place] [address] Dr. Frank HillsCO2 [Moles/Vol]29.7 mmol/HDvnvzj32.0-32.0[facility] Comment on above:Performed By: #### LIVER, LIPID, TSH, FT3, T4 #### [facility] [address] [place] [address] Dr. Frank HillsCreatinine [Mass/Vol]0.68 mg/dLNormal0.55-1.02[facility] HospitalComment on above:Performed By: #### LIVER, LIPID, TSH, FT3, T4 #### [facility] [address] [place] [address] Dr. Frank PatriciaGFR-AF SAUDI ARABIAN>60Normal>=60The [facility] HospitalComment on above:Performed By: #### LIVER, LIPID, TSH, FT3, T4 #### [facility] [address] [place] [address] Dr. Frank PatriciaGFR-NON AF SAUDI ARABIAN>60Normal>=60[facility] HospitalComment on above:Performed By: #### LIVER, LIPID, TSH, FT3, T4 #### [facility] [address] [place] [address] Dr. Frank HillsGlobulin (S) [Mass/Vol]3.5 g/dLNormalThe [facility]rick HospitalComment on above:Performed By: #### LIVER, LIPID, TSH, FT3, T4 #### [facility] [address] [place] [address] Dr. Frank HillsGlucose [Mass/Vol]92 mg/uGBeyscq07-162OidCleveland Clinic Union Hospital Comment on above:Performed By: #### LIVER, LIPID, TSH, FT3, T4 #### [facility] [address] [place] [address] Dr. Frank HillsPotassium [Moles/Vol]3.8 mmol/LNormal3.5-5.1The [facility] Comment on above:Performed By: #### LIVER, LIPID, TSH, FT3, T4 #### [facility] [address] [place] [address] Dr. Frank HillsProtein [Mass/Vol]7.5 g/dLNormal6.4-8.2The [facility] Comment on above:Performed By: #### LIVER, LIPID, TSH, FT3, T4 #### [facility] [address] [place] [address] Dr. Frank Wolfedium [Moles/Vol]140 mmol/EKeemfd330-678DbzCleveland Clinic Union Hospital Comment on above:Performed By: #### LIVER, LIPID, TSH, FT3, T4 #### [facility] [address] [place] [address] Dr. Frnak Noble nitrogen [Mass/Vol]14.0 mg/dLNormal7.0-18.0The [facility] HospitalComment on above:Performed By: #### LIVER, LIPID, TSH, FT3, T4 #### [facility] [address] [place] [address] Dr. Frank Noble nitrogen/Creatinine [Mass ratio]20.6 mg/mgNormalThe [facility]rick HospitalComment on above:Performed By: #### LIVER, LIPID, TSH, FT3, T4 #### [facility] [address] [place] [address] Dr. Frank Díaz RATE WESTERGRENon 77-57-8063HPM RATE6 mm/hrNormal<=30The [facility]itrick HospitalComment on above:Performed By: #### SEDR #### [facility] [address] [place] [address] Dr. Frank Gray RANDOM W/MICROSCOPICon 44-53-2638DJXNQJMNRNFS SEENNormalNONE SEENThe [facility]itrick HospitalComment on above:Performed By: #### LIVER, LIPID, TSH, FT3, T4 #### [facility] [address] [address] [address] Frank HillsBilirubin Ql (U)NegativeNormalNEGMercy Health Anderson Hospital Comment on above:Performed By: #### LIVER, LIPID, TSH, FT3, T4 #### [facility] [address] [address] [address] Frank Elam SEENNormalNONE SEENCleveland Clinic Union HospitalComcorewell health greenville hospital on above:Performed By: #### LIVER, LIPID, TSH, FT3, T4 #### [facility] [address] [address] [address] Frank HillsClarity (U)CLEARNormalCLEARCleveland Clinic Union HospitalComcorewell health greenville hospital on above: Performed By: #### LIVER, LIPID, TSH, FT3, T4 #### [facility] [address] [address] [address] Frank Cornell (U)LT. YELLOWNormalYGood Samaritan HospitalComcorewell health greenville hospital on above:Performed By: #### LIVER, LIPID, TSH, FT3, T4 #### [facility] [address] [address] [address] Frank HillsCrystals LM Nom (Urine sed)NONE SEENNormalNONE SEENCleveland Clinic Union HospitalComcorewell health greenville hospital on above:Performed By: #### LIVER, LIPID, TSH, FT3, T4 #### [facility] [address] [address] [address] Marie ChangEpithelial cells LM Ql (Urine sed)RARENormalNONE SEEN /RARECleveland Clinic Union HospitalComcorewell health greenville hospital on above:Performed By: #### LIVER, LIPID, TSH, FT3, T4 #### [facility] [address] [address] [address] Frank HillsGlucose Ql (U)NegativeNormalNEGATIVECleveland Clinic Union HospitalComcorewell health greenville hospital on above:Performed By: #### LIVER, LIPID, TSH, FT3, T4 #### [facility] [address] [address] [address] Frank HillsHemoglobin Ql (U)NegativeNormalNEGMercy Health Anderson Hospital Comment on above:Performed By: #### LIVER, LIPID, TSH, FT3, T4 #### [facility] [address] [address] [address] Frank Kerr Ql (U)NegativeNormalNEGATIVECleveland Clinic Union HospitalComment on above:Performed By: #### LIVER, LIPID, TSH, FT3, T4 #### [facility] [address] [place] [address] Dr. Frank RodriguezOCYTESNegativeNormalNEGATIVEThe Mckitrick HospitalComment on above:Performed By: #### LIVER, LIPID, TSH, FT3, T4 #### [facility] [address] [place] [address] Dr. Frank MillerbnormalNONE SEENCleveland Clinic Union HospitalComment on above:Performed By: #### LIVER, LIPID, TSH, FT3, T4 #### [facility] [address] [place] [address] Dr. Frank Nieves Ql (U)NegativeNormalNEGATIVECleveland Clinic Union HospitalComment on above:Performed By: #### LIVER, LIPID, TSH, FT3, T4 #### [facility] [address] [place] [address] Dr. Frank Garcia (U)6.0 [pH]Normal5-9[facility] on above: Performed By: #### LIVER, LIPID, TSH, FT3, T4 #### [facility] [address] [place] [address] Dr. Frank Nathan SEENAbnormal0-2The The [facility] Hospitalment on above: Performed By: #### LIVER, LIPID, TSH, FT3, T4 #### [facility] [address] [place] [address] Dr. Frank HillsSPEC GRAVITY1.320Esojwn8.005-<=1.025The [facility] on above:Performed By: #### LIVER, LIPID, TSH, FT3, T4 #### [facility] [address] [place] [address] Dr. Frank Gray PROTEINNegativeNormalNEGATIVE/ TRACEThe [facility] Comment on above:Performed By: #### LIVER, LIPID, TSH, FT3, T4 #### [facility] [address] [address] [address] Frank Villeda Qn (U)0.2 {Flaquita'U}/dLNormal0.2 - 1.0[facility] HospitalComment on above:Performed By: #### LIVER, LIPID, TSH, FT3, T4 #### [facility] [address] [place], [place] [address] Dr. Frank BarajasBCNONCompa SEENNormalNONE SEENCleveland Clinic Union HospitalComment on above: Performed By: #### LIVER, LIPID, TSH, FT3, T4 #### [facility] [address] [address] [address] Frank HillsAmbulatory Clinical Summaryon 94-05-2788Gjfdjkhxpw Clinical Summary{26-92-60-4h-51-z4-6t-o0-oa-30-04-10-37-3c-92-ae}CD:[id number] Bethesda Butler HospitalPatient Educationon 02-69-3758Invnpud EducationUrology Urinary Incontinence Urinary incontinence refers to [...] stimulation). ? For women, using a medical charge entry specialist to prevent urine leaks. This is a [...] after experiencing incontinence. General instructions ? Take dyic-nnn-vhojuzl and prescription medicines only as (more content not included)...[facility] HospitalUrology Office/Clinic Noteon 49-16-4883Mlmsbcv Office/Clinic NoteChief Complaint 6 month check w/PVR HPI Staff [...] urine and/or bladder capacity by US- non-imaging 14744 Urnls Dip Stick Auto w/o Microscopy POC 15601 I have reviewed the previous health record information and history for this patient from Dr. Ramos Follow-up With When Contact Information Richard Leal MD, Maximo Dhaliwal, URO Only if needed [facility] [address] [place] [address]- Additional Instructions: Patient Education Urinary Incontinence I, [...] Diverticulosis Dysuria Encounter for screening colonoscopy for ssb-ndmy-nsge patient Hemifacial spasm History of shingles Hyperlipidemia Hypertension Hyperthyroidism Insomnia Nocturia Osteoarthritis Polyneuropathy Post-void dribbling Raynaud phenomenon Recurrent UTI Rosacea Urethral stricture Historical No qualifying data Procedure/Surgical History Hip replacement (12/13/2016), Fusion of lumbar spine (12/06/2011), Ablation (08/18/2005), Excision of sebaceous cyst (08/27/1999), Arthroscopy of knee, Dilatation and curettage, Excision of ganglion cyst, E (more content not included)...[facility]oples HospitalComment on above:Result Comment: Electronically Signed By: Richard Leal MD, Maximo Dhaliwal\.br\Date and Time Signed: 10/27/2111:16 EST\.br\Electronically Co-Signed By: Snow Lundberg MA\.br\Date and Time Co-Signed: 10/27/21 11:12 ESTAmbulatory Clinical Summaryon 72-75-1665Feznzbqbgs Clinical Summary {6u-3t-59-1m-q5-0t-86-3b-81-lq-70-86-b0-23-3f-4e}CD:[id number] Bethesda Butler HospitalPatient Educationon 76-58-0744Pziyyho EducationUrinary Frequency The number of times a [...] your urinary frequency. Itis (more content not included)...[facility] HospitalUrology Office/Clinic Noteon 52-81-2902Fzmhtqj Office/Clinic NoteChief Complaint 6 wk f/u This [...] procedure, # 2 cap(s), Refills(s) 0, Pharmacy: [facility]/pharmacy #[id number], 172.7, cm, 02/24/21 8:22:00 EDT, Height/Length Dosing, 99.8, kg, 02/24/21 8:21:00 EDT... Urnls Dip Stick Auto w/o Microscopy POC 23360 I have reviewed the previous health record information and history for this pt. from Dr. Ramos. Follow-up With When Contact Information Richard Leal MD, Maximo Dhaliwal, URO [address] [place] [address]- Additional Instructions: 6mos. pvr Patient Education Urinary [...] Diverticulosis Dysuria Encounter for screening colonoscopy for zuj-zxss-abbv patient Hemifacial spasm History of shingles Hyperlipidemia Hypertension Hyperthyroidism Insomnia Osteoarthritis Polyneuropathy (more content not included)...Peoples HospitalComment on above: Result Comment: Electronically Signed By: Richard Leal MD, Maximo Dhaliwal\.br\Date and Time Signed: 04/23/2112:21 EDT\.br\Electronically Co-Signed By: Indu Gonzalez MA\.br\Date and Time Co-Signed: 04/23/21 11:40 EDTCoding Summary.on 26-20-3396Dnuxnv Summary. CD:[id number]:[id number]+PGhlYWQ+XV7FUUFeP18vtITzcV1VF6gRUL7RHMDVXNXNDH7GFY8su KN2RMwxN5XsljQp [file] ZTog (more content not included)...NormalOhiohealth Nelsonville Health CenterConsent for Procedure/Surgeryon 54-78-9733Uzqglcl for Procedure/Surgery [id number]#1.00CD:127Peoples HospitalIntraOperative Documentson 42-63-1701QtnqpQxsexzgtp Documents [id number]#1.00CD:127Peoples HospitalConsent for Treatmenton 14-04-8983Gqoeknd for Treatment [id number]#1.00CD:127Peoples HospitalMain OR Intraoperative Recordon 31-10-2719Hmvm OR Intraoperative Record IntraOp Document Type FTURO Summary Primary Physician: Maximo Ramos Jr., MD Finalized Date/Time: 03/12/21 13:52:16 Pt. Name: DANYELLE HASKINS/Sex: 1955 Female Med Rec #: [id number] Physician: Maximo Ramos Jr., MD Financial #: [id number] Pt. Type: O Room/Bed: / Admit/Disch: 03/12/21 [...] Performed Surgeon - Primary Scrub - [facility] Director - Primary Time In 03/12/21 13:44:00 [...] Signatures Signed By: Savanna Azevedo RN 03/12/21 13:52NoTriHealth Bethesda Butler HospitalMain OR Preoperative Recordon 99-96-0755Ofpg OR Preoperative RecordHolding Area Document Type FTURO Summary Primary Physician: Maximo Ramos Jr., MD Finalized Date/Time: 03/12/21 13:23:03 Pt. Name: DANYELLE HASKINS/Sex: 1955 Female Med Rec #: [id number] Physician: Maximo Ramos Jr., MD Financial #: [id number] Pt. Type: O Room/Bed: / Admit/Disch: 03/12/21 [...] LPN 03/12/21 13:08 Savanna Azevedo RN 03/12/21 13:23Peoples HospitalOperative Reporton 53-80-7951Jspyypggi ReportPatient: DANYELLE HASKINS Age: 65 years Sex: [...] urine. The Urethra was dilated to: 28 Bengali w/ sounds. Devices Implanted: None. Removal: Cystoscope is removed, The patient tolerated it well. Postoperative Information Discharge: Patient is discharged home with antibiotic coverage, Follow up arranged.Peoples HospitalComment on above:Result Comment: Electronically Signed By: Richard Leal MD, Maximo Dhaliwal\.br\Date and Time Signed: 03/12/2113:53 EDTLARGE JOINT/BURSA INJECTION AND/OR ASPIRATION: R kneeOrdered By: [place] Mccl[place] on 02-37-0376Vtmsr Foster, MD 03/12/2021 2:21 PM LARGE JOINT/BURSA [...] immediate complications The patient was prepped with Betadine.[facility] HospitalRAD - Ultrasound Reporton 49-87-6069RTF - Ultrasound Report [id number]#1.00CD:[address] [place], [place] [address]Physician Referralon 89-54-2027Pvezrlser Referral [id number]#1.00CD:[address] [place], [place] [address]Ambulatory Clinical Summaryon 32-55-9585Jsrtbkulkd Clinical Summary {88-8y-ny-u8-73-7h-74-8x-40-8m-1r-d4-28-3d-df-06}CD:318483LaimkcZgqpgf [facility] MarylandPatient Educationon 80-00-8959Njwkuvs EducationUrinary Tract Infection Urinary tract infections (UTIs) [...] Document Reviewed: 12/01/2012 ExitCare? Patient Information ?2013 [employer] OGK-5.Peoples HospitalUrology Office/Clinic Noteon 65-91-8075Grykfas Office/Clinic NoteChief Complaint New patient recurring UTI sxs This patient is a 65-year-old female with a history of recurrent urinary tract infections. She was recurrent infections. She is been treated several times with oral antibiotics for symptoms of dysuria frequency and urgency continue to recur. She is here today to discuss treatment options to establish urologic care. [facility] Staff New patient Danyelle is a [...] Will order Local anesthesia. ABX sent to [facility] in [place]. Ordered: Urology Procedure Order US Renal 2. Dysuria (R30.0: Dysuria) Moderate. Ordered: Urnls Dip Stick Auto w/o Microscopy POC 90332 Urology Procedure Order US Renal 3. Nocturia [...] procedure, # 2 cap(s), Refills(s) 0, Pharmacy: [facility]/pharmacy #[id number], 172.7, cm, 02/24/21 8:22:00 EDT, Height/Length Dosing, 99.8, kg, 02/24/21 8:21:00 (more content not included)...Peoples HospitalComment on above:Result Comment: Electronically Signed By: Richard Leal MD, Maximo Dhaliwal\.br\Date and Time Signed: 02/24/2109:35 EDT\.br\Electronically Co-Signed By: Indu Gonzalez MA\.br\Date and Time Co- Signed: 02/24/21 08:56 EDTLARGE JOINT/BURSA INJECTION AND/OR ASPIRATION: R knee on 78-73-3429Ocqdu Foster, MD 11/27/2020 2:34 PM LARGE JOINT/BURSA [...] no immediate complications The patient wasprepped with Betadine.ExilesCT UPPER EXTREMITY WO CONTRAST RIGHTon 92-64-2020HB UPPER EXTREMITY WO CONTRAST RIGHT [facility] Department of Radiology [address] [place] [phone] Patient Name: DANYELLE HASKINS : 1955 Sex: F Age: Race: White Pt. Location: Patient Status: O Ordered Date: 03/10/2020 2:25:00 PM Completed Date: 03/10/2020 04:00 PM Requesting Provider: JOE ZUNIGA Attending Provider: JOE ZUNIGA Report Copy To: YULISA BATRES Signs & Symptoms: S42.201A Unsp fracture of upper end of right humerus, init I10 History: [place] Patient to go to clinic after call results to [phone] ortho clinic NO MEDICARE/BC CPT CODE 15696 *MLA Comments: right shoulder Exam: CT UPPER [...] reports Electronically signed: Abdelrahman Constantino. Transcribed by: [email or web address], User Resident: ISABELL MARKHAM Electronically Signed by: ABDELRAHMAN CONSTANTINO @ 03/10/2020 04:46 PM I personally read this/these film(s) with this residentKettering Health MiamisburgComment on above:Order Comment: right shoulderSHOULDER [facility] 59-36-1998OYDGBDAR [facility] Department of Radiology [address] [place] [phone] Patient Name: DANYELLE HASKINS : 1955 Sex: F Age: Race: White Pt. Location: Patient Status: O Ordered Date: 03/10/2020 2:05:00 PM Completed Date: 03/10/2020 02:13 PM Requesting Provider: JOE ZUNIGA Attending Provider: Report Copy To: Signs & Symptoms: S42.201A Unsp fracture of upper end of right humerus, init I10 History: [place] Comments: , Views (X-RAY, SHOULDER): Axillary , [...] reports Electronically signed: Abdelrahman Constantino. Transcribed by: [email or web address], User Resident: ISABELL MARKHAM Electronically Signed by: ABDELRAHMAN CONSTANTINO @ 03/10/2020 04:48 PM I personally read this/these film(s) with this [facility] HospitalComment on above:Order Comment: , Views (X-RAY, SHOULDER): Axillary , Weight Bearing?: NLARGE JOINT INJECTION: R kneeon 52-41-3318PvxmzNew Mcclure MD 11/23/2019 2:44 PM LARGE JOINT [...] well with no immediate complications Preparation: with Betadine.[facility], EDIF, PLATELETon 81-79-4054UOXNEAJW BASOPHIL COUNT0.[address]Basophils/100 WBC (Bld)0.6 %0 - 2 %[address] Differential cell count method Nom (Bld)AUTO DIFF%[address]Eosinophils #/vol (Bld)0.00 10*3/jUM89YICFTNW[address]Eosinophils/100 WBC (Bld)1.0 %0 - 11 %[address]Erythrocyte distribution width Ratio (RBC)14.2 %11.5 - 14.5 %[address]ETHematocrit Volume Fraction (Bld)33.5 %Low36 - 48 % [address]ETHemoglobin mass conc (Bld)11.5 g/dLLow[address] Interpretation and review of laboratory resultsAbnormalO[address]ETLymphocytes #/vol (Bld)0.70 10*3/uLX10 [address]Lymphocytes/100 WBC (Bld)16.1 %Low20 - 55 %[address] MCH Entitic mass (RBC)34.6 pg26 - 35 PG[address]ETMCHC mass conc (RBC)34.2 g/dL69 [address]ETMCV Entitic volume (RBC)101.1 fL[address]Monocytes #/vol (Bld)0.4 10*3/rJP98WVJGTRB[address] [place], [place] [address]Monocytes/100 WBC (Bld)9.9 %0 - 10 %[address]Neutrophils #/vol (Bld)3.3 10*3/uL[address] Neutrophils/100 WBC (Bld)72.4 %37 - 75 %[address]Platelet mean volume Entitic volume (Bld)7.[address]Platelets #/vol (Bld)191 10*3/uL [address]RBC #/vol (Bld)3.31 10*6/uLLow[address]ETWBC #/vol (Bld)4.5 10*3/[address]CBC, EDIF, PLATELETon 94-51-9343DIFJTYJI BASOPHIL COUNT0.5B14FZTZJVL[address]Basophils/100 WBC (Bld)0.2 %0 - 2 %[address]Differential cell count method Nom (Bld)AUTO DIFF%[address] Eosinophils #/vol (Bld)0.00 10*3/pLG87WHBJMUR[address]ETEosinophils/100 WBC (Bld)0.1 %0 - 11 %[address]Erythrocyte distribution width Ratio (RBC)13.8 %11.5 - 14.5 %[address]ETHematocrit Volume Fraction (Bld)30.2 %Low36 - 48 %[address]ETHemoglobin mass conc (Bld)10.5 g/dL[address] StreetInterpretation and review of laboratory results Abnormal[address]ETLymphocytes #/vol (Bld)0.50 10*3/gDN02CYKATHI[address] [place], [place] [address]Lymphocytes/100 WBC (Bld)8.9 %Low20 - 55 %[address] Entitic mass (RBC)34.8 pg26 - 35 PG[address]ETMCHC mass conc (RBC)34.8 g/dL [address]MCV Entitic volume (RBC) 99.8 [address] StreetMonocytes #/vol (Bld)0.6 10*3/[address] Monocytes/100 WBC (Bld)10.2 %High0 - 10 %[address]Neutrophils #/vol (Bld)4.5 10*3/[address] StreetNeutrophils/100 WBC (Bld)80.6 %High37 - 75 %[address]Platelet mean volume Entitic volume (Bld)7.5 [address] StreetPlatelets #/vol (Bld)181 10*3/[address] StreetRBC #/vol (Bld)3.02 10*6/[address] StreetWBC #/vol (Bld)5.6 10*3/[address]CBC, EDIF, PLATELETon 01-54-5477JAFHFQVG BASOPHIL COUNT0.7K56TCEBXUU[address]ETBasophils/100 WBC (Bld)0.2 %0 - 2 %[address] Differential cell count method Nom (Bld)AUTO DIFF%[address]Eosinophils #/vol (Bld)0.00 10*3/aYD66SZPMXGK[address] [place], [place] [address]Eosinophils/100 WBC (Bld)0.7 %0 - 11 %[address]Erythrocyte distribution width Ratio (RBC)13.9 %11.5 - 14.5 %[address]ETHematocrit Volume Fraction (Bld)33.6 %Low36 - 48 % [address]ETHemoglobin mass conc (Bld)11.5 g/dL[address] Interpretation and review of laboratory resultsAbnormalO[address]ETLymphocytes #/vol (Bld)0.70 10*3/uLX10 [address]Lymphocytes/100 WBC (Bld)14.4 %Low20 - 55 %[address] MCH Entitic mass (RBC)34.7 pg26 - 35 PG[address]ETMCHC mass conc (RBC)34.1 g/dL69 [address]ETMCV Entitic volume (RBC)101.8 fL[address]Monocytes #/vol (Bld)0.5 10*3/bKB83HHGWHMN[address]ETMonocytes/100 WBC (Bld)9.8 %0 - 10 %[address]Neutrophils #/vol (Bld)3.7 10*3/[address] Neutrophils/100 WBC (Bld)74.9 %37 - 75 %[address]ETPlatelet mean volume Entitic volume (Bld)7.2 fL65 [address] StreetPlatelets #/vol (Bld)202 10*3/52 [address] StreetRBC #/vol (Bld) 3.30 10*6/87 [address] StreetWBC #/vol (Bld)4.9 10*3/[address] StreetREPEAT ABO/RH (D) TYPINGon 76-69-4336ENQ and Rh group Nom (Bld )Positive[address]ETSCREEN: MRSA ONLY, NARES (ISOLATION SCREEN)on 70-44-7033AVYI isol Org specific cx Ql (Nose)Negative [address]STAPHYOCOCCUS AUREUS BY PCRNegative[address]ETComment on above:TESTING PERFORMED BY PCRXR KNEE LEFT 2 VIEWSon 72-94-3100Dfft, Interfaces - 11/21/2018 3:12 PM EST XR [...] malalignment or acute fracture.RADIOLOGYBasic Metabolic Panel on 31-64-1711Omxexwm7.2 mg/dLNormal8.4-10.2Sal[facility] City HospitalComment on above:Performed By: #### CHEM8 ####Unless otherwise noted, all testing performed by [address] [phone]: [id number] Director: Ramon Araujo M.D.Bzyjyvcs915 mmol/SBkso26-830 [facility] HospitalComcorewell health greenville hospital on above:Performed By: #### CHEM8 ####Unless otherwise noted, all testing performed by [address] [id number]: [id number] Director: Ramon Araujo M.D.CO227 mmol/VTmlalx09-42QiqkRxngymSalem City Hospital Comment on above:Performed By: #### CHEM8 ####Unless otherwise noted, all testing performed by [address] [phone]: [id number] Director: Ramon Araujo M.D.Creatinine0.60 mg/dLNormal 0.60-1.20[facility] HospitalComcorewell health greenville hospital on above:Performed By: #### CHEM8 ####Unless otherwise noted, all testing performed by [address] [phone]: [id number] Director: Ramon Araujo M.D.eGFR (black)mL/min/{1.73_m2}NormalSalem City HospitalComcorewell health greenville hospital on above:Result Comment: GFR CalcPerformed By: #### CHEM8 ####Unless otherwise noted, all testing performed by [address] [phone]: [id number] Director: Ramon Araujo M.D.eGFR (non-black)mL/min/{1.73_m2}NormalSt. Francis Hospital on above:Result Comment: Non- GFR CalceGFR [...] otherwise noted, all testing performed by [address] [phone]: [id number] Director: Ramon Araujo M.D.Glucose mass conc87 mg/jWEbabuh57-38HfvjSmfcloSt. Francis Hospital on above:Result Comment: This test result might be falsely depressed or falsely elevated onsamples drawn from patients taking Sulfasalazine and Sulfapyridine.Venipuncture should occur prior to taking either of these drugs.Performed By: #### CHEM8 ####Unless otherwise noted, all testing performed by [address] [phone]: [id number] Director: Ramon Araujo M.D.Potassium molar conc4.2 mmol/LNormal3.5-5.1[facility] on above:Performed By: #### CHEM8 ####Unless otherwise noted, all testing performed by [address] [phone]: [id number] Director: Ramon Araujo M.D.Xddetd033 mmol/AGqakzi586-399IooxIgoulwSt. Francis Hospital on above: Performed By: #### CHEM8 ####Unless otherwise noted, all testing performed by [place] [address] [address], [place] [phone]: [id number] Director: Ramon Araujo M.D.Urea aewgvubw81 mg/dLNormal8-25[facility] City HospitalComment on above:Performed By: #### CHEM8 ####Unless otherwise noted, all testing performed by [place] [address] [address], [place] [phone]: [id number] Director: Ramon Araujo M.D.[facility] Reporton [id number] Services [facility] ReportType: OrthopedicDictated by: To be signed by: Transcribed by: Transcribed D/ Dictation D/ Report: DATE OF VISIT: 08/11/2017 HISTORY OF PRESENT ILLNESS: Ms. Haskins underwent left patellar tendon repair and inferior partial patellectomy on 07/18/2017 three weeks ago.She is doing well. She is at a long term with a knee immobilizer locked out in extension and has been non-weightbearing. She is doing very well. She is happy with her recovery to date. She is having minimal pain, using only Tylenol at this time. She is planning to be discharged from the long term next week when she has a wheelchair [...] her that she may shower at the long term only using a shower chair with a shower stool. The knee should be in extension before the brace comes off and should remain in extension until the brace goes back on. She should not stand while not wearing the brace. This was all relayed via instructions to the long term. We will see her back in three weeks. Dictated by KAREEM Croft, for Dr. Mcclure.[facility] HospitalHistory and Physical Reporton [id number] and Physical ReportType: SurgicalDictated by: To Be Signed by: Transcribed by: Transcribed Date/Time: 06/23/2017 11:46Dictation Date/Time: 06/22/2017 17:52Report: DATE OF VISIT: 06/22/2017 HISTORY OF PRESENT ILLNESS: Patient is here today for evaluation and treatment of her failed left total knee arthroplasty. She isan established patient of [facility]. She was last seen on 04/27/2017, diagnosed [...] [facility] The patient has a walker, commode chair, shower chair, and a cane in the home for equipment. She is not followed by cardiology. The patient is followed by Dr. Jeffrey of pain management. The patient is followed by Dr. Monaco, a rf test engineer and by Dr. Lili Parks, a neurologist. 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 The patient is seen by a rf test engineer, has a pain specialist, and a neurologist. [...] and OT. 2) Orders reviewed and continue same.NormalKeenan Private Hospital. difficile Assayon 07-24-2017C. difficile interpretationNegativeNoKettering Health Comment on above:Result Comment: Rapid test procedural control acceptable. Performed By: #### zCDIF ####Unless otherwise noted, all testing performed by [address] [phone]: [id number] Director: Ramon Araujo M.D.Specimen Acceptable (CDIF)on [id number] Acceptable (CDIF)YESNoKettering HealthComment on above:Result Comment: C. difficile testing result(s) to follow.Performed By: #### CDSPEC ####Unless otherwise noted, all testing performed by [address] [phone]: [id number] Director: Ramon Araujo M.D.CBC with Diffon [id number] Auto #/vol (Bld)0.0 K/mcLNormal0-0.2OhOhioHealth Berger HospitalComment on above:Performed By: #### CBCDIF, CMET, TSH ####Unless otherwise noted, all testing performed by [address] [phone]: [id number] Director: Ramon Araujo M.D. Basophils/100 WBC Auto (Bld)0.5 %[facility] on above:Performed By: #### CBCDIF, CMET, TSH ####Unless otherwise noted, all testing performed by [address] [id number] [phone]: [id number] Director: Ramon Araujo M.D.Eosinophils0.1 K/mcLNormal0-0.5OhOhioHealth Berger HospitalComment on above: Performed By: #### CBCDIF, CMET, TSH ####Unless otherwise noted, all testing performed by [address] [phone]: [id number] Director: Ramon Araujo M.D.Eosinophils/100 leukocytes1.7 % ACMC Healthcare SystemComment on above:Performed By: #### CBCDIF, CMET, TSH ####Unless otherwise noted, all testing performed by [address] [phone]: [id number] Director: Ramon Araujo M.D.Erythrocyte distribution width Auto Ratio (RBC)14.6 %High 10.0-14.4[facility] City HospitalComment on above:Performed By: #### CBCDIF, CMET, TSH ####Unless otherwise noted, all testing performed by [address] [phone]: [id number] Director: Ramon Araujo M.D.Erythrocytes (RBC)3.32 M/mcLLow3.7-5.0[facility] on above:Performed By: #### CBCDIF, CMET, TSH ####Unless otherwise noted, all testing performed by [address] [phone]: [id number] Director: Ramon Araujo M.D.Hematocrit (HCT)33.9 %Low34.4-44.8[facility] on above:Performed By: #### CBCDIF, CMET, TSH ####Unless otherwise noted, all testing performed by [address] [phone]: [id number] Director: Ramon Araujo M.D.Hemoglobin mass conc (Bld)11.8 g/gYMtddpk48.6-15.4[facility] on above: Performed By: #### CBCDIF, CMET, TSH ####Unless otherwise noted, all testing performed by [address] [phone]: [id number] Director: Ramon Araujo M.D.Lymphocytes0.8 K/mcLLow1.0-3.7 [facility] on above:Performed By: #### CBCDIF, CMET, TSH ####Unless otherwise noted, all testing performed by [address] [phone]: [id number] Director: Ramon Araujo M.D.Lymphocytes/100 qvuntevtkk01.3 %NormalSalem City HospitalComcorewell health greenville hospital on above:Performed By: #### CBCDIF, CMET, TSH ####Unless otherwise noted, all testing performed by [address] [phone]: [id number] Director: Ramon Araujo M.D.MCH35.6 pg High27.9-33.9[facility] HospitalComcorewell health greenville hospital on above:Performed By: #### CBCDIF, CMET, TSH ####Unless otherwise noted, all testing performed by [address] [phone]: [id number] Director: Ramon Araujo M.D.MCHC mass conc (RBC)34.8 g/nHZprslu49.1-35.1[facility] HospitalComcorewell health greenville hospital on above:Performed By: #### CBCDIF, CMET, TSH ####Unless otherwise noted, all testing performed by [address] [phone]: [id number] Director: Ramon Araujo M.D.GXM008.1 wRMuaf69.6-98.9[facility] on above: Performed By: #### CBCDIF, CMET, TSH ####Unless otherwise noted, all testing performed by [address] [phone]: [id number] Director: Ramon Araujo M.D.Monocytes0.6 K/mcLNormal0.1-0.6 [facility] on above:Performed By: #### CBCDIF, CMET, TSH ####Unless otherwise noted, all testing performed by [address] [phone]: [id number] Director: Ramon Araujo M.D.Monocytes/100 azyqopglhm04.1 %NormalSt. Francis Hospital on above:Performed By: #### CBCDIF, CMET, TSH ####Unless otherwise noted, all testing performed by [address] [id number] [phone]: [id number] Director: Ramon Araujo M.D.Neutrophils3.1 K/mcLNormal1.2-6.9[facility] on above: Performed By: #### CBCDIF, CMET, TSH ####Unless otherwise noted, all testing performed by [address] [phone]: [id number] Director: Ramon Araujo M.D.Platelet mean volume (PMV)7.4 fL Normal7.0-10.6[facility] on above: Performed By: #### CBCDIF, CMET, TSH ####Unless otherwise noted, all testing performed by [address] [phone]: [id number] Director: Ramon Araujo M.D.Zonvyrqiv969 K/sxAFleziy847-587 [facility] on above:Performed By: #### CBCDIF, CMET, TSH ####Unless otherwise noted, all testing performed by [address] [phone]: [id number] Director: Ramon Araujo M.D.Segmented Neut %66.4 %NormalSt. Francis Hospital on above:Performed By: #### CBCDIF, CMET, TSH ####Unless otherwise noted, all testing performed by [address] [phone]: [id number] Director: Ramon Araujo M.D.WBC (Leukocytes) 4.6 K/mcLNormal3.4-10.6[facility] HospitalComcorewell health greenville hospital on above:Performed By: #### CBCDIF, CMET, TSH ####Unless otherwise noted, all testing performed by [address] [phone]: [id number] Director: Ramon Araujo M.D.Comprehensive Metabolic Panel 64-27-3193Ybnpwgg aminotransferase (ALT)27 U/MBsfbdc83-69IskyXfivnaSalem City HospitalComcorewell health greenville hospital on above:Result Comment: This test result might be falsely depressed or falsely elevated onsamples drawn from patients taking Sulfasalazine and Sulfapyridine.Venipuncture should occur prior to taking either of these drugs.Performed By: #### CBCDIF, CMET, TSH ####Unless otherwise noted, all testing performed by [address] [phone]: [id number] Director: Ramon Araujo M.D.Albumin2.8 g/dLLow3.2-5.2 [facility] on above:Performed By: #### CBCDIF, CMET, TSH ####Unless otherwise noted, all testing performed by [address] [phone]: [id number] Director: Ramon Araujo M.D.Alkaline phosphatase (ALP)53 U/QXtyjre94-193LlhrBzvqrqSalem City HospitalComment on above:Performed By: #### CBCDIF, CMET, TSH ####Unless otherwise noted, all testing performed by [address] [phone]: [id number] Director: Ramon Araujo M.D.Aspartate aminotransferase (AST)32 U/LNormal0-45[facility] Comment on above:Result Comment: This test result might be falsely depressed or falsely elevated onsamples drawn from patients taking Sulfasalazine and Sulfapyridine.Venipuncture should occur prior to taking either of these drugs. Performed By: #### CBCDIF, CMET, TSH ####Unless otherwise noted, all testing performed by [address] [phone]: [id number] Director: Ramon Araujo M.D.Bilirubin (total)0.9 mg/dLNormal 0.3-1.2[facility] HospitalComment on above:Performed By: #### CBCDIF, CMET, TSH ####Unless otherwise noted, all testing performed by [address] [phone]: [id number] Director: Ramon Araujo M.D.Calcium8.7 mg/dLNormal8.4-10.2[facility] City HospitalComment on above:Performed By: #### CBCDIF, CMET, TSH ####Unless otherwise noted, all testing performed by [address] 583148 [phone]: [id number] Director: Ramon Araujo M.D.Jqfljxdw150 mmol/GOkduug34-139QndjMnkyenSt. Francis Hospital on above: Performed By: #### CBCDIF, CMET, TSH ####Unless otherwise noted, all testing performed by [place] [phone]: [id number] Director: Ramon Araujo M.D.CO226 mmol/SJmdpvq18-25PgdcFxrnbjSt. [facility] Hospital on above:Performed By: #### CBCDIF, CMET, TSH ####Unless otherwise noted, all testing performed by [place] [phone]: [id number] Director: Ramon Araujo M.D.Creatinine0.57 mg/dLLow0.60-1.20[facility] on above:Performed By: #### CBCDIF, CMET, TSH ####Unless otherwise noted, all testing performed by [place] [address] [phone]: [id number] Director: Ramon Araujo M.D.eGFR (black) mL/min/{1.73_m2}[facility] on above: Result Comment: GFR CalcPerformed By: #### CBCDIF, CMET, TSH ####Unless otherwise noted, all testing performed by [address] [phone]: [id number] Director: Ramon Araujo M.D.eGFR (non-black)mL/min/{1.73_m2}NormalSalem City Hospital Comment on above:Result Comment: Non- GFR CalceGFR [...] otherwise noted, all testing performed by [address] [phone]: [id number] Director: Ramon Araujo M.D.Glucose mass conc86 mg/wSWwybsg25-94IpmkUixpohSalem City HospitalComment on above:Result Comment: This test result might be falsely depressed or falsely elevated onsamples drawn from patients taking Sulfasalazine and Sulfapyridine.Venipuncture should occur prior to taking either of these drugs.Performed By: #### CBCDIF, CMET, TSH ####Unless otherwise noted, all testing performed by [address] [phone]: [id number] Director: Ramon Araujo M.D.Potassium molar conc3.7 mmol/L Normal3.5-5.1[facility] City HospitalComment on above:Performed By: #### CBCDIF, CMET, TSH ####Unless otherwise noted, all testing performed by [address] [phone]: [id number] Director: Ramon Araujo M.D.Protein6.1 g/dLNormal6.0-8.0[facility] City HospitalComment on above:Performed By: #### CBCDIF, CMET, TSH ####Unless otherwise noted, all testing performed by [facility] [address] [address]906 [phone]: [id number] Director: Ramon Araujo M.D.Tnzhdv105 mmol/L Ahcrym377-230TggoPngrxySalem City HospitalComcorewell health greenville hospital on above:Performed By: #### CBCDIF, CMET, TSH ####Unless otherwise noted, all testing performed by [address] [phone]: [id number] Director: Ramon Araujo M.D.Urea dqzujuut12 mg/dLNormal8-25[facility] on above:Performed By: #### CBCDIF, CMET, TSH ####Unless otherwise noted, all testing performed by [address] 404287 [phone]: [id number] Director: Ramon Araujo M.D.TSHon 07-23-2017 Thyroid stimulating hormone (TSH)1.67 uIU/mLNormal0.320-5.000[facility] HospitalComcorewell health green[facility] hospital on above:Performed By: #### CBCDIF, CMET, TSH ####Unless otherwise noted, all testing performed by [address] [phone]: [id number] Director: Ramon Araujo M.D.[facility] 38-25-4857FVM NOTESNormalAvita [facility] NOTEon 07-21-2017 [facility] NOTESNormalAvita Venice HospitalOSU NOTESNormalAvita Venice HospitalOSU NOTESNormalAvita Venice HospitalOSU NOTESNormalAvita Venice HospitalOSU NOTES NormalAvita Venice HospitalOSU NOTESNormalAvita Venice HospitalD[facility] 26-43-6045VZO HIM CAC NOTESNormalAvita Venice HospitalOSU NOTESNormalAvita Venice HospitalOSU HIM CAC NOTESNormalAvita Venice HospitalOSU NOTESNormalAvita Venice HospitalOSU HIM CAC NOTESNormalAvita Venice HospitalOSU NOTESNormalAvita Venice HospitalPROGRESSon 73-01-1463JMW NOTESNormalAvita Venice HospitalOSU NOTESNormalAvita Venice HospitalOSU NOTESNormalAvita Venice HospitalOSU NOTES NormalAvita Venice HospitalNURSUNION HOSPITAL NOTEon 18-68-5305DRR NOTESNormalAvita Venice HospitalOSU NOTESNormalAvita [facility] HospitalOSU NOTESNormal[facility] NOTESNormalAvita [facility] 63-76-5362EOO HIM CAC NOTES NormalAvita Venice HospitalOSU NOTESNormalAvita Venice HospitalOSU HIM CAC NOTES NormalAvita Venice HospitalOSU NOTESNormalAvita Venice HospitalPROGRESSon 42-43-8445FCU NOTESNormalAvita Venice HospitalOSU NOTESNormalAvita Venice HospitalOSU NOTESNormalAvita [facility] HospitalOSU NOTESNormal[facility] NOTESNormalAvita Venice HospitalOSU NOTESNormalAvita [facility] HospitalOSU NOTESNormalAvita Venice HospitalOSU NOTESNormalAvita Venice HospitalOSU NOTES NormalAvita Venice HospitalOSU NOTESNormalAvita Venice HospitalOSU NOTESNormal Avita Venice HospitalAnes Post-opon 66-29-1842KOK HIM CAC NOTESNormalAvita Venice HospitalCONSULTon 29-85-2637WKR NOTESNormalAvita VeniceCox Monetticatimemorial medical center 12-39-1005CMC HIM CAC NOTESNormalAvita Venice HospitalURSUNION HOSPITAL NOTEon 30-78-2676KFA NOTESNormalAvita Venice HospitalOSU NOTESNormalAvita [facility] HospitalOSU NOTESNormalAvita [facility] HospitalOSU NOTESNormalAvita [facility] HospitalOSU NOTESNormalAvita [facility] HospitalOSU NOTESNormal[facility] NOTESNormalAvita Venice HospitalOSU NOTESNormalAvita Venice HospitalOSU NOTESNormalAvita [facility] HospitalOSU NOTESNormalAvita Venice HospitalOSU NOTES NormalAvita Venice HospitalOSU NOTESNormalAvita Venice HospitalPLAN OF CAREon 94-86-1232DZG HIM CAC NOTESNormalAvita Venice HospitalOSU NOTESNormalAvita Venice HospitalOSU [facility] CAC NOTESNormalAvita Venice HospitalOSU NOTESNormalAvita Venice HospitalPROGRESSon 60-87-6795XTK NOTESNormalAvita Venice HospitalOSU NOTESNormalAvita Venice HospitalOSU NOTESNormalAvita [facility] HospitalOSU NOTES NormalAvita [facility] HospitalOSU NOTESNormalAvita Venice HospitalOSU NOTESNormal [facility] HospitalOSU NOTESNormalAvita Venice HospitalOSU NOTESNormalAvita Venice HospitalOSU NOTESNormalAvita Venice HospitalBRIEF OP NOTon 81-51-8950LLV HIM CAC NOTESNormalAvita Venice HospitalOP NOTEon 52-32-5453YUA NOTESNormalAvita Venice HospitalOR NURSINGon 75-75-5279QMP [facility] CAC NOTESNormalAvita Venice HospitalXR KNEE LEFT 2 VIEWSon 20-99-6959KA KNEE LEFT 2 VIEWSXR KNEE LEFT 2 VIEWSEXAM: Left knee, 2 views.INDICATION: Status post total left knee arthroplasty.COMPARISON: None.FINDINGS: There are post total left knee arthroplasty changes identified, including soft tissue swelling, soft tissue emphysema, and surgical clips within the anterior compartment. Thealignment is satisfactory.IMPRESSION:Status post total left knee arthroplasty changes as above in satisfactory alignment.NormalGlenbeigh HospitalPROGRESSon 07-01-2017 [facility]ESNoPin[facility] Vital Signs Date TimeVital SignValuePerforming IebirsmvnKcgwrora82-35-7500 08:25-0400Body .7 cmElie Harper DPM Work Phone: NOWright [facility] HospitalGrlwwukdaz06-09-7904 08:25-0400Body mass index (BMI) [Ratio]33.75 kg/q1TnvyumztElie Harper DPM Work Phone: [facility] HospitalChdnptiqbv66-60-4915 08:25-0400Body wlxmiv171.7 kgLizjarret Harper DPM Work Phone: [facility] HospitalMszkejgewy51-78-5015 08:25-0400Respiratory rate18 /minElie Harper DPM Work Phone: [facility] HospitalGzknnjxysb42-31-3132 09:46-0400Diastolic blood cwngzatk204 mm[Hg]Yulisa Batres MD Work Phone: 1([phone] [place], [place] 5359309-16-2025 09:46-0400 Heart rate67 /Martin Batres MD Work Phone: [phone])[address]09-16-2025 09:46-0400 SaO2% (BldA) [Mass fraction]96 %Yulisa Batres MD Work Phone: [phone])[address]09-16-2025 09:46-0400 Systolic blood wrxejpnf214 mm[Hg]Yulisa Batres MD Work Phone: [phone] [place], [place] 3269409-10-2025 10:44-0400 Body rzrzvo35.96 kgDolemuel Batres MD Work Phone: [phone] [place], [place] 3269409-10-2025 10:44-0400 Diastolic blood vsifpfzf696 mm[Hg]Yulisa Batres MD Work Phone: [phone] [place], [place] 3269409-10-2025 10:44-0400 Heart rate69 /Martin Batres MD Work Phone: [phone])[facility]-[address] [place], [place] 5359309-10-2025 10:44-0400 SaO2% (BldA) [Mass fraction]95 %Yulisa Batres MD Work Phone: [phone] [place], [place] 5359309-10-2025 10:44-0400 Systolic blood mtmightz031 mm[Hg]Yulisa Batres MD Work Phone: [phone])[address]08-14-2025 08:26-0400 Body wtxmjy323.7 cmElie Harper DPM Work Phone: [facility] HospitalLlumlbvwhh06-18-9875 08:26-0400Body mass index (BMI) [Ratio]33.75 kg/s8Ahgtuudj Omer DPM Work Phone: [facility] HospitalYikeosxssq40-13-9126 08:26-0400Body vfhokn934.7 kgElie Harper DPM Work Phone: [facility] HospitalNtistkdtbb98-02-8576 08:26-0400Respiratory rate16 /minTabfreddyjarret Harper DPM Work Phone: [facility] HospitalKzzcsweymc47-85-0411 10:01-0400Diastolic blood mm[Hg]Yulisa Batres MD Work Phone: [phone]08-07-2025 10:01-0400 Heart rate72 /Martin Batres MD Work Phone: 1([phone] [place], [place] 3269408-07-2025 10:01-0400 SaO2% (BldA) [Mass fraction]97 %Yulisa Batres MD Work Phone: [phone])[address] [place], [place] 3269408-07-2025 10:01-0400 Systolic blood mm[Hg]Yulisa Batres MD Work Phone: 1([phone] [place], [place] 3269406-25-2025 09:43-0400 Body csoall185.72 cmYulisa Batres MD Work Phone: [phone] [place], [place] 3269406-25-2025 09:43-0400 Body mass index (BMI) [Ratio]33.7 kg/k2FhelcftYulisa Batres MD Work Phone: [phone] [place], [place] 3269406-25-2025 09:43-0400 Body ziqnrv705.69 kgYulisa Batres MD Work Phone: [phone] [place], [place] 3269406-25-2025 09:43-0400 Diastolic blood rjzsfmna386 mm[Hg]Yulisa Batres MD Work Phone: 1(683)[address]06-25-2025 09:43-0400 Heart rate66 /Martin Batres MD Work Phone: [phone])[address]06-25-2025 09:43-0400 Respiratory rate16 /Martin Batres MD Work Phone: [facility]06-25-2025 09:43-0400 SaO2% (BldA) [Mass fraction]97 %Yulisa Batres MD Work Phone: [facility]06-25-2025 09:43-0400 Systolic blood acmxbxtk518 mm[Hg]Yulisa Batres MD Work Phone: [facility]05-29-2025 11:59-0400 Body .7 cmNicholas Brown DPM Work Phone: [facility] HospitalXilsjkilac78-21-2808 11:59-0400Body mass index (BMI) [Ratio]33.75 kg/x0Piowstjr Brown DPM Work Phone: [facility] HospitalPqefqwjhkh11-55-7525 11:59-0400Body oosrfl693.7 kgNicholas Brown DPM Work Phone: [facility] HospitalVdvhtsnzci70-49-2455 11:59-0400Respiratory rate18 /minNicholas Brown DPM Work Phone: [facility] HospitalQvogqyyuft66-91-9135 08:32-0400Body honzfc502.7 cmNicholas Brown DPM Work Phone: [facility] HospitalCrxqddhkss35-12-0339 08:32-0400Body mass index (BMI) [Ratio]33.75 kg/a4Rjuevvbc Brown DPM Work Phone: [facility] HospitalUtssligkap34-96-3775 08:32-0400Body ovdeoc194.7 kgNicholas Brown DPM Work Phone: [facility] HospitalJlrnphqjrg97-67-4531 08:32-0400Respiratory rate16 /minNicholas Brown DPM Work Phone: [facility] HospitalVzgajkbheh73-95-7983 09:15-0400Diastolic blood cpbppvoo25 mm[Hg]Magalie Kaufman DO Work Phone: [facility] HospitalEzhjdbegmg73-15-1834 09:15-0400Heart rate71 /min Magalie Kaufman DO Work Phone: [place] [address]Saqfhozvye78-26-0318 09:15-0333QuU9% (BldA) [Mass fraction]96 %Magalie Kaufman DO Work Phone: [facility] HospitalWrefkqlayk00-29-8703 09:15-0400Systolic blood lqjaxxjz776 mm[Hg]Magalie Augustner DO Work Phone: [place] [address]Hdwzebqzic02-83-3539 14:03-0400Body agaasr006.7 cmNicholas Brown DPM Work Phone: [place] [address]Mlluwauskc92-28-5331 14:03-0400Body mass index (BMI) [Ratio]33.75 kg/j9Qvoixnhk Brown DPM Work Phone: [place] [address]Nmabqhmjmu88-18-6309 14:03-0400Body optwyf747.7 kgNicholas Brown DPM Work Phone: [place] [address]Lwmwbzefxf80-41-3752 14:03-0400Respiratory rate18 /minNicholas Brown DPM Work Phone: [place] [address]Pdfvzylsbl96-99-8963 15:43-0400Body esdjzq301.7 cmNicholas Brown DPM Work Phone: [place] [address]Ghlcqrxezn81-99-3782 15:43-0400Body mass index (BMI) [Ratio]33.75 kg/b0Uyqotlqy Brown DPM Work Phone: [place] [address]Spwxgauong12-16-2453 15:43-0400Body iknwcx889.7 kgNicholas Brown DPM Work Phone: [place] [address]Pankppahwl25-36-8073 15:43-0400Respiratory rate18 /minNicholas Brown DPM Work Phone: [place] [address]Cehuxkfkak07-25-2585 14:21-0400Body ipqerh914.7 cmNicholas Brown DPM Work Phone: [place] [address]Mybyekcrje01-29-8862 14:21-0400Body mass index (BMI) [Ratio]33.75 kg/i2Imzfffkn Brown DPM Work Phone: [facility] HospitalYiaszbkvoe66-40-6972 14:21-0400Body aarojc578.7 kgNicholas Brown DPM Work Phone: [facility] HospitalWqozfkswnr96-60-3337 14:21-0400Respiratory rate18 /minNicholas Brown DPM Work Phone: 1([phone] [place], [place] [address]Giewexfstk37-40-5067 10:12-0400Body iodnzb127.7 cmNicholas Brown DPM Work Phone: [facility] HospitalXwrnxpdwvd18-53-1606 10:12-0400Body mass index (BMI) [Ratio]33.75 kg/v0Wjpqggsj Brown DPM Work Phone: [facility] HospitalLyjxlcrhoa93-68-1376 10:12-0400Body nbncec592.7 kgNicholas Brown DPM Work Phone: 1([phone] [place], [place] [address]Wphvkildry38-94-8467 10:12-0400Respiratory rate18 /minNicholas Brown DPM Work Phone: [facility] HospitalIalfldlaua72-15-1328 10:22-0500Body auefpy360.7 cmNicholas Brown DPM Work Phone: [facility] HospitalIszcewwups79-59-4112 10:22-0500Body mass index (BMI) [Ratio]33.75 kg/m2Mdiwyecn Brown DPM Work Phone: 1(854)299-[address] [place], [place] [address]Igogifkjqe09-32-0826 10:22-0500Body cmqwuq301.7 kgNicholas Brown DPM Work Phone: [phone] [place], [place] [address]Jfiafzfsqv14-91-7382 10:22-0500Respiratory rate18 /minNicholas Brown DPM Work Phone: [facility] HospitalCdedyhxvia48-74-8578 15:04-0500Body dhuokq097.7 cmNicholas Brown DPM Work Phone: [facility] HospitalWfowecguaw09-66-3832 15:04-0500Body mass index (BMI) [Ratio]33.75 kg/u2Umyrhjat Brown DPM Work Phone: [facility] HospitalWxzxrhpyjd56-16-9075 15:04-0500Body oyrtsn179.7 kgLizjarret Harper DPM Work Phone: [facility] HospitalMigjlvlyrl39-66-5421 15:04-0500Respiratory rate18 /minElie Harper DPM Work Phone: [facility] HospitalDojduiuivz98-33-4977 11:30-0500Body mass index (BMI) [Ratio]33.75 kg/j0VapckGaby Christianson SUPERINTENDENT COMPRESSOR STATIONS Work Phone: [facility] HospitalXiatweyrkz45-31-8816 11:30-0500Body sgxjoz941.7 kgGaby Christianson SUPERINTENDENT COMPRESSOR STATIONS Work Phone: [facility] HospitalJqdlluneoo83-00-8340 11:30-0500Diastolic blood wcovamsv97 mm[Hg]Gaby Christianson SUPERINTENDENT COMPRESSOR STATIONS Work Phone: [facility] HospitalVcjctvmhay47-08-5302 11:30-0500Heart rate85 /min Gaby Christianson SUPERINTENDENT COMPRESSOR STATIONS Work Phone: noW[facility] HospitalYmogvypaku14-10-6185 11:30-1324HlV9% (BldA) [Mass fraction]97 %Gaby Christianson SUPERINTENDENT COMPRESSOR STATIONS Work Phone: noW[facility] HospitalHpngichhcz17-36-8068 11:30-0500Systolic blood jokyevhx854 mm[Hg]Gaby Christianson SUPERINTENDENT COMPRESSOR STATIONS Work Phone: [facility] HospitalPkxcideirl77-76-1260 11:19-0500Body itrfxt071.2 Jones Mcclure MD Work Phone: [facility]01-22-2025 11:19-0500Body mass index (BMI) [Ratio]36.96 kg/v2TxufpNew Mcclure MD Work Phone: [facility]01-22-2025 11:19-0500Body weight 107.05 kgNew Mcclure MD Work Phone: [facility]01-09-2025 14:19-0500Body height 172.7 cmElie Harper DPM Work Phone: noW[facility] HospitalFkbrybweax07-04-9308 14:19-0500Body mass index (BMI) [Ratio]34.67 kg/j7WbsxgkzrElie Harper DPM Work Phone: [facility] HospitalLqlhvcirfq05-81-3093 14:19-0500Body pavefc572.42 kgElie Harper DPM Work Phone: [facility] HospitalXinqflqdgg50-01-1095 14:19-0500Respiratory rate18 /minElie Harper DPM Work Phone: [facility] HospitalGmksznsjxz74-88-6959 11:39-0500Diastolic blood ohxkbsmr52 mm[Hg]Magalie Mandeep DO Work Phone: noW[facility] HospitalBbgpokqjqy94-72-4473 11:39-0500Heart rate76 /min Magalie Mandeep DO Work Phone: [facility] HospitalEzxgsttfkq97-52-3772 11:39-7037FxT6% (BldA) [Mass fraction]99 %Magalie Mandeep DO Work Phone: noW[facility] HospitalAnictwknei73-25-3089 11:39-0500Systolic blood mm[Hg]Magalie Mandeep DO Work Phone: noW[facility] HospitalXlireekxgj73-10-3419 14:08-0500Body mass index (BMI) [Ratio]34.67 kg/r3Civsymemavj Moni DO Work Phone: [facility] HospitalOwcvlmyusz43-29-0332 14:08-0500Body gimink738.42 kgChristopher Moni DO Work Phone: noW[facility] HospitalKmpxdxyagf73-64-5873 14:08-0500Diastolic blood vpjbebdz50 mm[Hg]Shante Moni DO Work Phone: noW[facility] HospitalUsgalbohmk54-17-5157 14:08-0500Heart rate76 /min Christopher Moni DO Work Phone: noW[facility] HospitalXyvmuzwtex95-72-3140 14:08-1697NxU4% (BldA) [Mass fraction]93 %Christopher Moni DO Work Phone: [facility] HospitalDpnwwnixnk43-15-6890 14:08-0500Systolic blood cfigdldt047 mm[Hg]Shante Montenegro DO Work Phone: [facility] HospitalXvzlqgkxlz23-42-7090 14:36-0400Body rewdbx135.7 cmLizjarret Harper DPM Work Phone: [facility] HospitalKzeackgyou04-02-8175 14:36-0400Body mass index (BMI) [Ratio]34.21 kg/d3Jejdaonc Brown DPM Work Phone: [facility] HospitalTlsjpfstxv14-80-7012 14:36-0400Body eeltcm971.06 kgElie Harper DPM Work Phone: [facility] HospitalOwrhewlgii30-43-0100 14:36-0400Diastolic blood vesigxhx87 mm[Hg]Elie Harper DPM Work Phone: [facility] HospitalKcmvmziojo49-08-3217 14:36-0400Heart rate82 /min Elie Harper DPM Work Phone: [facility] HospitalDnplsyypoj00-34-6579 14:36-0400Systolic blood flxqmehp171 mm[Hg]Elie Brown DPM Work Phone: [facility] HospitalWvyvfqdwpc98-66-8927 11:30-0400Body .7 cmLizjarret Omer DPM Work Phone: [facility] HospitalPmyxqxhhdx67-61-1175 11:30-0400Body mass index (BMI) [Ratio]34.21 kg/s2OatfyzkfElie Harper DPM Work Phone: [facility] HospitalKqnopjowvn59-94-7770 11:30-0400Body bobevb675.06 kgElie Brown DPM Work Phone: [phone] [place], [place] [address]Hrcvyndeus13-54-9419 11:30-0400Respiratory rate17 /minElie Harper DPM Work Phone: [facility] HospitalVgtnbqqwah30-55-8559 10:36-0400Body fjekzx575.7 cmTabholjarret Brown DPM Work Phone: [place] [address]Asvttqrxcx55-20-7354 10:36-0400Body mass index (BMI) [Ratio]34.21 kg/j8VefouuagElie Harper DPM Work Phone: [place] [address]Qgcdfiffjf47-33-5929 10:36-0400Body .06 kgElie Omer DPM Work Phone: [place] [address]Jtjlberfep77-60-4545 10:36-0400Diastolic blood xebeqhrz92 mm[Hg]Eliemitzi Harper DPM Work Phone: [place] [address]Xrusgahsin62-32-7893 10:36-0400Heart rate74 /min Eliemitzi Harper DPM Work Phone: [place] [address]Lbuhhbrost86-40-5465 10:36-0400Respiratory rate18 /minLizjarret Harper DPM Work Phone: [place] [address]Sejqflzeok58-49-0165 10:36-0400Systolic blood faknurcj950 mm[Hg]Elie Harper DPM Work Phone: [place] [address]Dxwxgbbusy59-56-7542 12:37-0400Diastolic blood jaelopqf65 mm[Hg]Magalie Mandeep DO Work Phone: [place] [address]Duorwzssrk15-57-7291 12:37-0400Heart rate64 /min Magalie Mandeep DO Work Phone: [place] [address]Jgqrtorjiv22-27-4437 12:37-7425XpP1% (BldA) [Mass fraction]94 %Magalie Mandeep DO Work Phone: [place] [address]Viwdhyxeip84-36-0465 12:37-0400Systolic blood donawllx164 mm[Hg]Magalie Mandeep DO Work Phone: [place] [address]Fmlwnjafsb73-45-4324 15:22-0400Body ezghvb326.7 cmLizjarret Harper DPM Work Phone: [place] [address]Lqazsfrxyu30-33-1924 15:22-0400Body mass index (BMI) [Ratio]34.21 kg/o7PgeqpshwElie Harper DPM Work Phone: [facility] HospitalIfynyjoxib41-20-6880 15:22-0400Body fkibgj891.06 kgTabsharona Harper DPM Work Phone: [facility] HospitalZkbkdecidv22-54-3181 15:22-0400Diastolic blood lrwopwhl23 mm[Hg]Elie Harper DPM Work Phone: [facility] HospitalMpggyxngdp68-27-2785 15:22-0400Heart rate75 /min Eliemitzi Harper DPM Work Phone: [facility] HospitalClsodrckuw14-74-9990 15:22-0400Respiratory rate18 /minElie Harper DPM Work Phone: [facility] HospitalNukmtygoxn59-88-7364 15:22-0400Systolic blood mm[Hg]Elie Harper DPM Work Phone: [facility] HospitalJtxzatvyqh98-58-8950 13:00-0400Body qzlloe853.7 Adonay Christianson SUPERINTENDENT COMPRESSOR STATIONS Work Phone: [facility] HospitalJszcgdvfkt80-09-7763 13:00-0400Body mass index (BMI) [Ratio]34.21 kg/f6ZhhwbGaby Christianson SUPERINTENDENT COMPRESSOR STATIONS Work Phone: [facility] HospitalDdhcihpkoy56-94-0827 13:00-0400Body .06 kgGaby Christianson SUPERINTENDENT COMPRESSOR STATIONS Work Phone: [facility] HospitalTpisapvjpr61-64-5127 13:00-0400Diastolic blood mm[Hg]Gaby Christianson SUPERINTENDENT COMPRESSOR STATIONS Work Phone: [facility] HospitalUuvgzvqjuu71-98-1761 13:00-0400Systolic blood qcneadul375 mm[Hg]Gaby Christianson SUPERINTENDENT COMPRESSOR STATIONS Work Phone: [facility] HospitalAxokfhryjp81-06-7476 14:04-0400Body .7 cmTabsharona Harper DPM Work Phone: [facility] HospitalTibqovgjjb23-49-0286 14:04-0400Body mass index (BMI) [Ratio]33.6 kg/v8YccgmrnvElie Harper DPM Work Phone: [facility] HospitalUtbtxxrgzq89-91-9956 14:04-0400Body yuvccj149.25 kgTabsharona Harper DPM Work Phone: [facility] HospitalTabrbamlgu01-85-4481 14:04-0400Diastolic blood hthitzqt44 mm[Hg]Elie Harper DPM Work Phone: [facility] HospitalAaxqzyloci82-48-1498 14:04-0400Heart rate80 /min Elie Harper DPM Work Phone: [facility] HospitalUlcaiznvdc74-63-4015 14:04-0400Systolic blood exagvjpg551 mm[Hg]Elie Harper DPM Work Phone: [facility] HospitalKxzhttuzot81-12-3704 09:44-0400Body iyluhj816.2 Jones Mcclure MD Work Phone: 1([phone])[address]07-25-2024 09:44-0400Body mass index (BMI) [Ratio]37.09 kg/f4HrksaNew Mcclure MD Work Phone: [phone])[address]07-25-2024 09:44-0400Body wkvqlkqulxw66.5 [degF]New Mcclure MD Work Phone: [phone])[address]07-25-2024 09:44-0400Body weight 107.41 kgNew Mcclure MD Work Phone: 1(746)[address]05-16-2024 15:49-0400Body height 170.2 Jones Mcclure MD Work Phone: 1(547)[address]05-16-2024 15:49-0400Body mass index (BMI) [Ratio]35.4 kg/k3OgmncNew Mcclure MD Work Phone: 1([phone])[address]32 [address]05-16-2024 15:49-0400Body weight 102.51 kgNew Mcclure MD Work Phone: 1(866)[address]04-18-2024 11:02-0400Body height 170.2 Lewis SCHAWRTZ Work Phone: [facility]04-18-2024 11:02-0400Body mass index (BMI) [Ratio]35.4 kg/m2Berthad Abby PATTERSONN-HAIRSPRING FABRICATION SUPERVISOR Work Phone: [address] [place], [place] [address]104-18-2024 11:02-0400Body weight 102.51 kgRajinder Green APRN-HAIRSPRING FABRICATION SUPERVISOR Work Phone: [facility]12-28-2023 10:09-0500Diastolic blood spwlwwab66 mm[Hg]Pepe Chaka Ont [facility]12-28-2023 10:09-0500Systolic blood mm[Hg]Pepe Chaka [facility]12-28-2023 09:53-0500Body vxaefp170.2 cmAvo Chaka [facility]12-28-2023 09:53-0500Body mass index (BMI) [Ratio]34.46 kg/m2Avo Chaka Ont [facility]12-28-2023 09:53-0500Body .79 kg Pepe Chaka [facility]12-28-2023 09:53-0500Heart rate67 /min [facility]pe [facility] HospitalComment on above:-62-2012 09:53-0500Respiratory rate20 /minAvo Chaka Ont [facility] Comment on above:lungs jyk55-59-6619 09:53-1480HbG9% (BldA) [Mass fraction]96 % Pepe Chaka [facility]10-26-2023 12:59-0400Body janiag137.2 Jones Mcclure MD Work Phone: [facility]10-26-2023 12:59-0400Body mass index (BMI) [Ratio]35.4 kg/d0ZlsclNew Mcclure MD Work Phone: [facility]10-26-2023 12:59-0400Body vlrerlmntit24.2 [degF]New Mcclure MD Work Phone: [facility]10-26-2023 12:59-0400Body weight 102.51 kgNew Mcclure MD Work Phone: [facility]07-13-2023 14:41-0400Body height 172.7 cmChashelbi Abby PATTERSONN-HAIRSPRING FABRICATION SUPERVISOR Work Phone: [facility] LoganManjrasoft07-13-2023 14:41-0400Body mass index (BMI) [Ratio]34.36 kg/m2Rajinder Green APRN-HAIRSPRING FABRICATION SUPERVISOR Work Phone: [phone] CenterActifio Wnqurc11-39-5270 14:41-0400Body jikfkvitrnj35.59 [degF]Rajinder Green APRN-HAIRSPRING FABRICATION SUPERVISOR Work Phone: [phone] CenterManjrasoft07-13-2023 14:41-0400Body weight 102.51 kgRajinder Green APRN-HAIRSPRING FABRICATION SUPERVISOR Work Phone: [facility] LoganManjrasoft10-25-2021 15:30-0400Body height 173.99 cmDajose Georgiaemberleticia Other Rep Other 10-25-2021 15:30-0400Body mass index (BMI) [Ratio] 30.26 kg/l1CfyekgStephen Changleticia Other Rep Other 10-25-2021 15:30-0400Body keksrx69.63 kgDajose Changleticia Other Rep Other Phone: [phone] 15:30-0400Diastolic blood mm[Hg] Stephen Alicea Other Rep Other 10-25-2021 15:30-0400Systolic blood hnhbnhif077 mm[Hg] Stephen Alicea Other Rep Other 05-05-2021 13:50-0400Body zkmhyq776.7 Jones Mcclure MD Work Phone: 1([phone] [place], [place] [address]5-05-2021 13:50-0400Body mass index (BMI) [Ratio]33.45 kg/o1OrjjpNew Mcclure MD Work Phone: [address] [place], [place] 3352105-05-2021 13:50-0400Body uziviihjodi34 [degF]New Mcclure MD Work Phone: [facility]05-05-2021 13:50-0400Body weight 99.79 kgNew Mcclure MD Work Phone: [address] [place], [place] [address]01-13-2021 14:21-0500BMI (Body Mass Index)34.1 kg/l5[facility]kwTr[facility]01-13-2021 14:21-0500Body Qioiduzdpcj85.11 [degF][facility]01-13-2021 14:21-0500Body andhqb088.25 kgTr[facility] System01-13-2021 14:21-7862Xtyblg718.5 [facility]01-15-2020 13:29-0500BMI (Body Mass Index)33.42 kg/i0XnhlaId[facility]01-15-2020 13:29-0500Body Rspuexstyxa88 [degF] [facility]01-15-2020 13:29-0500Body ovfxsh31.7 kgId[facility]01-15-2020 13:29-7040Lxgbdb984.7 [facility]06-12-2019 16:28-0400BMI (Body Mass Index)31.02 kg/b2MkpvrIdaho Falls Community Hospital06-12-2019 16:28-0400Body Ogwnzjsapzh11.59 [degF][facility]06-12-2019 16:28-1527Yfccvt722.7 [place] [address]-12-2019 16:28-9063Yicazp54.53 kgIdaho [facility] Hospital04-25-2019 14:14-0400BMI (Body Mass Index)31.63 kg/m2 [facility]04-25-2019 14:14-0400Body Tqsisuxlcdq03.39 [degF][facility]04-25-2019 14:14-8072Gkdwkj632.7 [facility] 03-01-2019 14:14-5879Wdwayl02.35 kgId[facility] Hospital02-27-2019 15:24-0500 BMI (Body Mass Index)31.63 kg/q8TurftIdaho Falls Community Hospital02-27-2019 15:24-0500 Body Wwgeltxuaih97.3 [degF][facility]02-27-2019 15:24-0500Body ouodyw65.35 kgIdaho Falls [facility] Hospital02-27-2019 15:24-4982Mfhzcq099.7 [facility]02-07-2019 14:44-0500BMI (Body Mass Index)30.87 [facility]/m2[facility] Work Phone: 1(314) 920-568702-07-2019 14:44-0500Body Zllcrhyhgug80.9 [degF][facility] Work Phone: 1(802) 106-846102-07-2019 14:44-3753Ezsyvn172.7 [facility] Work Phone: 1(325) 279-140902-07-2019 14:44-1457Tbegqt25.08 [facility] Work Phone: 1(680) 950-121701-18-2019 16:57-0500Body Ynxsixabvpb78 [degF][facility] Work Phone: 1(902) 272-733101-18-2019 16:57-0500BP Hafyppriq04 mm[Hg][facility] Work Phone: 1(283) 785-593301-18-2019 16:57-0500BP Hnpweubc287 mm[Hg][facility] Work Phone: 1(158) 916-264001-18-2019 16:57-0500Pulse (Heart Rate)79 /minSMemorial Hospital Work Phone: 1(587) 644-615901-18-2019 16:57-0500Pulse Tihhywwt88 %[facility] Work Phone: 1(537) 596-663801-18-2019 16:57-0500Respiratory Rate18 /minSprjerad [facility] Work Phone: 1(846) 611-269901-15-2019 09:00-0500BMI (Body Mass Index)32.19 kg/m2 [facility] Work Phone: 1(137)[phone]8-3381 09:00-5450Fvskdj145.7 cmSMemorial Hospital Work Phone: 1(829) 814-968401-15-2019 09:00-8693Ljlrul88.03 kgJoint [facility] Work Phone: 1(420)061-925-631262-27999221-39-7773 08:49-0500BP Snlgqqcyp16 mm[Hg]Pepe Chaka Ont [facility] Work Phone: 1(980)[phone]566 08:49-0500BP Tndloigk257 mm[Hg]Pepe Chaka Ont [facility] Work Phone: 1(990)[phone]2-0571 08:49-0500Pulse (Heart Rate)100 /minAvo Chaka Ont [facility] Work Phone: 1([phone]155 09:01-0500BMI (Body Mass Index)31.93 kg/m2 Pepe Chaka Ont [facility] Work Phone: 1(390)771-030-865201-43690989-21-7393 09:01-0500Body Hyyaiwcuhob22.81 [degF]Pepe Chaka Ont [facility] Work Phone: 1(209)[phone]279 09:01-9374Bbdkpf702.7 cmAvo Chaka Ont [facility] Work Phone: 1(090)232-695-868607-90877333-27-4722 09:01-0500Pulse Rwdizwfa26 %Pepe Chaka Ont [facility] Work Phone: 1([phone])[phone] 09:01-0500Respiratory Rate16 /minAvo Chaka Ont [facility] Work Phone: 1(249)[phone] 09:01-0253Nlxlww79.25 kgAvo Chaka Ont [facility] Work Phone: Encounters Encounter DateEncounter TypeCare ProviderFacilityStart: 09-05-2025 End: 11-50-0239Lkgyuf flowsMarbin Harper DPM Work Phone: noMS CI PODIATRYStart: 09-05-2025 End: 85-28-5090Lmwvxl flowsMarbin Harper DPM Work Phone: n[facility] CI PODIATRYStart: 09-05-2025 End: 52-17-0311Phuiofe encounter procedureElie Harper DPM Work Phone: noms CI PODIATRYComment on above:Other polyneuropathy (Primary Dx); Pain due to onychomycosis of toenails of both feetStart: 09-05-2025 End: 85-03-5848ndjftcplvcAKEJRQGC A BROWNNot AvailableStart: 07-23-2025 End: 01-99-2277sixebyjhqcStlqqhq M Hoy MD Work Phone: [facility] Work Phone: Start: 07-23-2025 End: 93-62-9801Sdodsgp encounter procedureChristopher Moni Saavedra DO-[facility] [place] Work Phone: Start: 07-17-2025 End: 39-02-8716hwmynyglaaUpruvqn M Hoy MD Work Phone: [facility] Work Phone: Start: 07-17-2025 End: 88-91-1706Qiirgkr encounter procedureChanali Saavedra DO-[facility] [place] Work Phone: Start: 06-26-2025 End: 88-16-6893founfzvhmuOuzhglq M Hoy MD Work Phone: [facility] Work Phone: Start: 06-26-2025 End: 63-43-6501Jkvnxyq encounter procedureChanali Saavedra DO-[facility] [place] Work Phone: Start: 06-20-2025 End: 13-88-9035Ulcfyt Burt Harper DPM Work Phone: [facility] CI PODIATRYStart: 06-20-2025 End: 93-23-7406Wcxuou Burt Harper DPM Work Phone: [facility] PODIATRYStart: 06-20-2025 End: 41-40-9526Dxepizu encounter procedureElie Harper DPM Work Phone: [facility] CI PODIATRYComment on above:Pain due to onychomycosis of toenails of both feet (Primary Dx)Start: 06-20-2025 End: 28-54-8732xtsvvyodkxLYOTXOTG A BROWNNot AvailableStart: 06-13-2025 End: 76-58-1538qvsecgglvpKbdwnrs M Hoy MD Work Phone: [facility] Work Phone: Start: 06-13-2025 End: 50-51-9047Zpecekd encounter procedureMagalie Kaufman DO-[facility] [place] Work Phone: Start: 05-15-2025 End: 57-01-9510Vvxnto Asher Gilmore DO Work Phone: [facility] NB OPHTStart: 05-15-2025 End: 45-20-9068Goqbvf Asher Gilmore DO Work Phone: [facility] NB OPHTStart: 05-15-2025 End: 12-70-6673sqmmxsnfvdLBEEIAXC D ZAHLERNot AvailableStart: 05-01-2025 End: 12-11-6799pthxgpxgnnByuuzoh M Hoy MD Work Phone: [facility] Work Phone: Start: 05-01-2025 End: 33-09-0227Zvhttyw encounter Tammy Christianson APRN-FNP-C-[facility] [place] Work Phone: Start: 04-04-2025 End: 84-94-9410Nhsccn flowsMarbin Caraballo Brown DPM Work Phone: [facility] CI PODIATRYStart: 04-04-2025 End: 84-95-5983Stdfik flowsheroNicsharona A Brown DPM Work Phone: [facility] CI PODIATRYStart: 04-04-2025 End: 63-06-9681Odwusaa encounter procedureNicsharona Harper DPM Work Phone: noMS CI PODIATRYComment on above:Pain due to onychomycosis of toenails of both feet (Primary Dx)Start: 04-04-2025 End: 33-96-1542jwnfqdbkqaXDPYXGRG A BROWNNot AvailableStart: 03-20-2025 End: 67-03-4339Rvdzvhcvb encounterDevon Irina VENTURAUEComment on above: Med RefillStart: 03-07-2025 End: 43-04-2916Ksrleg flowsMarbin Harper DPM Work Phone: [facility] CI PODIATRYStart: 03-07-2025 End: 68-31-5803Vvifrk flowsheroNicholjarret A Brown DPM Work Phone: [facility] CI PODIATRYStart: 03-07-2025 End: 40-02-7478Ndlwte follow up visit related to original pxElie Harper DPM Work Phone: [facility] CI PODIATRYComment on above:Acquired deformity of left toe (Primary Dx); Other polyneuropathyStart: 03-07-2025 End: 41-02-1334vfdupridhhBEIDUIUR A BROWNNot AvailableStart: 02-28-2025 End: 83-44-8604Zutvls flowsheetNicole Mandeep DO Work Phone: aNA BELLEVUEStart: 02-28-2025 End: 44-18-5924Nzsqip flowsheetNicole Mandeep DO Work Phone: aNA BELLEVUEStart: 02-28-2025 End: 51-07-7847Bopkqqo encounter procedureNicole Mandeep DO Work Phone: aNA BELLEVUEComment on above:Blepharospasm (Primary Dx); 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Start: 02-28-2025 End: 37-82-7722xevpkjkbkfQESHXF DANNERNot AvailableStart: 02-20-2025 End: 44-22-6709Zquxcw flowsheetNicsharona Harper DPM Work Phone: [facility] [place] PODStart: 02-20-2025 End: 83-48-6829Fhawux flowsheetNicholas Rashmi Brown DPM Work Phone: [facility] [place] PODStart: 02-20-2025 End: 68-90-7824Xmipyz follow up visit related to original pxNicholjarret Harper DPM Work Phone: [facility] [place] PODComment on above:Acquired deformity of left toe (Primary Dx); Other polyneuropathyStart: 02-20-2025 End: 94-68-0167gwdrnstpyiYOLJUDAW A BROWNNot AvailableStart: 02-19-2025 End: 28-39-4839ZzeqlyVdioedji Riedy MAANA BELLEVUEComment on above:Paresthesias; Spinal stenosis of lumbar region, unspecified whether neurogenic claudication presentStart: 02-13-2025 End: 25-80-5061Mpulhh follow up visit related to original pxNicholas Rashmi Harper DPM Work Phone: [facility] [place] PODComment on above:Acquired deformity of left toe (Primary Dx); Other polyneuropathyStart: 02-13-2025 End: 34-85-0904hzzdkinlogSOGQLVLD Rashmi HARPERNot AvailableStart: 02-13-2025 End: 25-49-6841Cozwko flowsheetNicholas A Brown DPM Work Phone: [facility] [place] PODStart: 02-13-2025 End: 92-78-4162Kxykaa flowsheetNicholas A Brown DPM Work Phone: [facility] [place] PODStart: 02-06-2025 End: 51-67-2448oegrvqfpprQQAPDAKK A BROWNNot AvailableStart: 02-06-2025 End: 62-17-8074Ooftjx flowsheetNicholas A Brown DPM Work Phone: [facility] [place] PODStart: 02-06-2025 End: 92-80-2528Qiuuna flowsheetNicholas A Brown DPM Work Phone: [facility] [place] PODStart: 02-06-2025 End: 33-08-8163Gtlrli follow up visit related to original pxNicholas A Brown DPM Work Phone: [facility] [place] PODComment on above:Acquired deformity of left toe (Primary Dx); Other polyneuropathyStart: 01-24-2025 End: 27-47-3906wethkolcsyOQAVCUGI Rashmi HARPERNot AvailableStart: 01-17-2025 End: 18-76-6227Ptaylu outpatient visit 25 minutesNicholas A Brown DPM Work Phone: [facility] PODIATRYComment on above:Cellulitis of left foot (Primary Dx); Acquired deformity of left toe; Foot ulcer, left, with fat layer exposed (CMS/HCC); Other polyneuropathyStart: 01-17-2025 End: 16-72-0108NkshtgNqrptflz Riedy [facility] CLINTONComment on above: Paresthesias; Spinal stenosis of lumbar region, unspecified whether neurogenic claudication presentStart: 01-10-2025 End: 11-02-4337Harffs flowsheetNicholas A Brown DPM Work Phone: [facility] PODIATRYStart: 01-10-2025 End: 61-27-4680Qniopa flowsheetNicholas A Brown DPM Work Phone: [facility] PODIATRYStart: 01-10-2025 End: 52-27-0649Tepzrb outpatient visit 15 minutesNicholas A Brown DPM Work Phone: [facility] [place] PODIATRYComment on above:Cellulitis of left foot (Primary Dx); Acquired deformity of left toe; Foot ulcer, left, with fat layer exposed (CMS/HCC); Other polyneuropathyStart: 01-10-2025 End: 16-32-7879ydtkdxdfubRDSPHZOR A BROWNNot AvailableStart: 01-02-2025 End: 15-86-7768Jiicgg outpatient visit 15 minutesNicholas A Brown DPM Work Phone: [facility] [place] PODComment on above:Cellulitis of left foot (Primary Dx); Acquired deformity of left toeStart: 01-02-2025 End: 86-60-8367bhkfkdophfAALEYUWW A BROWNNot AvailableStart: 01-02-2025 End: 80-84-7762Twictc flowsheetNicholas A Brown DPM Work Phone: [facility] [place] PODStart: 01-02-2025 End: 37-11-0843Epfwbv flowsheetNicholas A Brown DPM Work Phone: [facility] [place] PODStart: 12-12-2024 End: 17-81-6343Tzpxly flowsheetSarah Christianson [employer] Work Phone: [facility] [place]UEStart: 12-12-2024 End: 95-38-4965Yiipwb flowsheetSarah Christianson [employer] Work Phone: [facility] [place]LEVUEStart: 12-12-2024 End: 87-74-3433Vzeeta outpatient visit 15 minutesSajordy Christianson [employer] Work Phone: [facility] BELLEVUEComment on above:Spinal stenosis of lumbar region, unspecified whether neurogenic claudication present (Primary Dx); Degeneration of intervertebral disc of lumbar region with discogenic back pain; Facet arthritis of lumbar region; Blepharospasm; Polyneuropathy; Carpal tunnel syndrome on both sidesStart: 12-12-2024 End: 90-71-7735sqwbbnijmqUMCKR CARROLLNot AvailableStart: 11-28-2024 End: 88-79-9180Ypriju outpatient visit 15 Alice Mcclure MD Work Phone: [facility] OrthopedicsComment on above:Hx of total knee arthroplasty, left (Primary Dx); Hx of total knee arthroplasty, rightStart: 11-28-2024 End: 41-93-2229Shbgcdigit hospital visit by Kaykay Mcclure MD Work Phone: [facility] RadiologyStart: 31-66-3525tknpvztufeQELZYGuadalupe Regional Medical Center HospitalStart: 11-15-2024 End: 83-46-5006Mquhqz outpatient visit 15 Jackie Harper DPM Work Phone: noms CI PODIATRYComment on above:Acquired deformity of left toe (Primary Dx); Pain due to onychomycosis of toenails of both feetStart: 11-15-2024 End: 02-69-0741fxkvlcjaqqGCCMJBGF A BROWNNot AvailableStart: 11-15-2024 End: 04-57-5823Weoclq flowsMarbin Harper DPM Work Phone: [facility] CI PODIATRYStart: 11-15-2024 End: 36-64-4448Vghykzletha Harper DPM Work Phone: [facility] CI PODIATRYStart: 10-25-2024 End: 16-30-3049Snchqq flowsheetNicole Mandeep DO Work Phone: [facility]TEStart: 10-25-2024 End: 24-38-1281Nkyjyp flowsheetNicole Mandeep DO Work Phone: [facility]TEStart: 10-25-2024 End: 61-52-5241Rmrezvm encounter procedureNicole Mandeep DO Work Phone: [facility] STATE ROUTEComment on above: Blepharospasm (Primary Dx); 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Start: 10-25-2024 End: 66-20-2363kkikjefiaiVYOUTV DANNERNot AvailableStart: 10-24-2024 End: 42-50-1155DtsuxmCzozauv Cherri [place] STATE ROUTEComment on above: Spinal stenosis of lumbar region, unspecified whether neurogenic claudication present (Primary Dx); ParesthesiasStart: 10-23-2024 End: 60-89-1114Iimzus flowsheetChristopher Moni DO Work Phone: [facility] NE NEUROStart: 10-23-2024 End: 13-49-1515Roncmz flowsheetChristopher Moni DO Work Phone: [facility] NE NEUROStart: 10-23-2024 End: 38-00-2137Bqclsrj encounter procedureChristopher Moni DO Work Phone: [facility] NE NEUROComment on above:Carpal tunnel syndrome on both sides (Primary Dx); ParesthesiasStart: 10-23-2024 End: 44-23-6793vjkqqvjkjvTAQIWEQGBQK HASSETTNot AvailableStart: 10-22-2024 End: 09-91-3121Vmbitw OnlyChristopher Moni DO Work Phone: [facility] [place] STATE ROUTEComment on above: Paresthesias; Spinal stenosis of lumbar region, unspecified whether neurogenic claudication presentStart: 10-15-2024 End: 12-67-4392Gexssw flowsheetChristopher Moni DO Work Phone: [facility] [place] [facility] ROUTEStart: 10-15-2024 End: 10-97-4713Ljyjpg flowsheetChristopher Moni DO Work Phone: [facility] [place] [facility] ROUTEStart: 10-15-2024 End: 11-61-9900Fqbujo outpatient visit 25 minutesChristopher Moni DO Work Phone: [facility] R[facility]TEComment on above:Paresthesias (Primary Dx); Blepharospasm; Spinal stenosis of lumbar region, unspecified whether neurogenic claudication presentStart: 10-15-2024 End: 20-90-8193puneusrfllBEUJFKZOPGW HASSETTNot AvailableStart: 09-06-2024 End: 21-35-3206Ihriocr encounter procedureElie Harper DPM Work Phone: n[facility] CI PODIATRYComment on above:Pain due to onychomycosis of toenails of both feet (Primary Dx); Acquired deformity of left toeStart: 09-06-2024 End: 27-67-0253Ntzzww flowsheetNicholas A Brown DPM Work Phone: [facility] CI PODIATRYStart: 09-06-2024 End: 58-67-3232Scicnu flowsheetNicholas A Brown DPM Work Phone: [facility] CI PODIATRYStart: 08-16-2024 End: 16-81-7250Uhwsmx flowsheetNicholas A Brown DPM Work Phone: [facility] CI PODIATRYStart: 08-16-2024 End: 12-64-0456Lxwlpo flowsheetNicholas A Brown DPM Work Phone: [facility] CI PODIATRYStart: 08-16-2024 End: 45-04-5549Rzyygl outpatient visit 15 minutesNicsharona Caraballo Brown DPM Work Phone: noms CI PODIATRYComment on above:Abscess of toe, right (Primary Dx); Acquired deformity of left toeStart: 08-02-2024 End: 35-39-7559Tomgnw flowsheetNicholas A Brown DPM Work Phone: [facility] CI PODIATRYStart: 08-02-2024 End: 91-84-8294Aiazjx flowsheetNicholas A Brown DPM Work Phone: [facility] CI PODIATRYStart: 08-02-2024 End: 95-44-6968Utkins outpatient visit 15 minutesElie Harper DPM Work Phone: noms CI PODIATRYComment on above:Onychocryptosis (Primary Dx); Toe pain, right; Abscess of toe, right; Acquired deformity of left toeStart: 07-30-2024 End: 47-77-6378Pdzvtdcpp encounterElie Harper DPM Work Phone: n[facility] CI PODIATRYComment on above:RxStart: 07-26-2024 End: 39-04-2952Ikehbz flowsheetNicole Mandeep DO Work Phone: [facility] [place] [facility] R[facility]TEStart: 07-26-2024 End: 01-05-8079Rnqfou flowsheetNicole Mandeep DO Work Phone: [facility] [place] [facility] ROUTEStart: 07-26-2024 End: 99-15-9863Efskebl encounter procedureNicole Mandeep DO Work Phone: [facility] [place] STATE ROUTEComment on above: Blepharospasm (Primary Dx); 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Start: 2024 End: 80-29-6867EuojsfFxuzlgox Riedy MANOMS NEUROLOGYComment on above: Polyneuropathy (Primary Dx); Spinal stenosis of lumbar region, unspecified whether neurogenic claudication present; Degenerative disc disease, lumbarStart: 07-18-2024 End: 71-20-9154Bagyrt outpatient visit 15 minutesElie Harper DPM Work Phone: [facility] SC PODComment on above:Onychocryptosis (Primary Dx); Toe pain, right; Abscess of toe, rightStart: 07-16-2024 End: 18-43-4315Zhpfpv Ministerio Christianson SUPERINTENDENT COMPRESSOR STATIONS Work Phone: [facility] [place] [facility] ROUTEStart: 07-16-2024 End: 83-06-5520Aiujcv Ministerio Christianson SUPERINTENDENT COMPRESSOR STATIONS Work Phone: [facility] [place] STATE ROUTEStart: 07-16-2024 End: 12-41-9511Cjscer outpatient visit 15 Rashaad Christianson NP Work Phone: [facility] R[facility]TEComment on above:Spinal stenosis of lumbar region, unspecified whether neurogenic claudication present (Primary Dx); Degenerative disc disease, lumbar; Facet arthritis of lumbar region; Blepharospasm; Polyneuropathy; ParesthesiasStart: 06-28-2024 End: 63-62-2426Rljecv Burt Harper DPM Work Phone: [facility] CI PODIATRYStart: 06-28-2024 End: 62-60-5300Wevwyt Burt Harper DPM Work Phone: [facility] CI PODIATRYStart: 06-28-2024 End: 12-35-4803Vvuiqm outpatient visit 10 minutesElie Harper DPM Work Phone: [facility] CI PODIATRYComment on above:Acquired deformity of left toe (Primary Dx); Onychomycosis; Toe pain, bilateralStart: 05-31-2024 End: 28-27-1962Rhnehv outpatient visit 15 Alice Mcclure MD Work Phone: [facility] OrthopedicsComment on above:Pain in both knees, unspecified chronicity (Primary Dx)Start: 05-31-2024 End: 65-00-5491Egyyzcysqn hospital visit by Kaykay Mcclure MD Work Phone: [facility] RadiologyStart: 85-31-1116zpggscebgeBWOMI FOSTERAvita Ontario HospitalStart: 04-19-2024 End: 66-31-5075Iycncw outpatient visit 25 minutesNew Mcclure MD Work Phone: [facility] OrthopedicsComment on above:Pain in both knees, unspecified chronicity (Primary Dx)Start: 04-19-2024 End: 16-62-5332Bhyampxgga hospital visit by Kaykay Mcclure MD Work Phone: [facility] RadiologyStart: 31-86-2289tgtpkkhysyFSDHWGuadalupe Regional Medical Center HospitalStart: 03-22-2024 End: 71-32-4940Pofjqz outpatient visit 15 Alice Mcclure MD Work Phone: [facility] OrthopedicsComment on above:Pain in both knees, unspecified chronicity (Primary Dx)Start: 03-22-2024 End: 51-25-9028Gquhnwenob hospital visit by Kaykay Mcclure MD Work Phone: [facility] RadiologyStart: 76-25-4955mnsjzflequHQYZEGuadalupe Regional Medical Center HospitalStart: 02-23-2024 End: 63-02-0794Ulwkue follow up visit related to original Delaney Green DECORATING INSTRUCTOR-HAIRSPRING FABRICATION SUPERVISOR Work Phone: [facility] OrthopedicsComment on above:Hx of total knee arthroplasty, left (Primary Dx)Start: 02-23-2024 End: 77-77-0088Zpgpfhvmbc hospital visit by Marisol Green APRN-HAIRSPRING FABRICATION SUPERVISOR Work Phone: [facility] RadiologyStart: 76-99-8002xoiypcrwzv YULISA [facility] HospitalStart: 01-12-2024 End: 82-08-1658Fhhwzh outpatient visit 25 minutesNew Mcclure MD Work Phone: [facility] OrthopedicsComment on above:Right knee pain, unspecified chronicity (Primary Dx)Start: 01-12-2024 End: 97-47-4788Evcawkajtu hospital visit by Kaykay Mcclure MD Work Phone: [facility] RadiologyStart: 24-10-3592ahvicunnubGKAKR [facility] HospitalStart: 12-22-2023 End: 57-25-7231Etzmhejqlk hospital visit by Marisol Green APRN-HAIRSPRING FABRICATION SUPERVISOR Work Phone: [facility] HospitalStart: 64-20-6135lxuledarre YULISA [facility] Centertart: 11-03-2023 End: 48-07-9132Kicfcuras to Emma Mcclure MD Work Phone: [facility] Pre AdmissionComment on above:Preop testing (Primary Dx); Abnormal finding of blood chemistry, unspecified; Abnormal coagulation profileStart: 11-03-2023 End: 96-44-9141Gzoqaxl encounter Melani Mcclure MD Work Phone: [facility] SystemStart: 09-01-2023 End: 93-99-3687Obhipz outpatient visit 40 minutesNew Mcclure MD Work Phone: [facility] OrthopedicsComment on above:Hx of total knee arthroplasty, right (Primary Dx); Hx of total knee arthroplasty, leftStart: 09-01-2023 End: 65-33-6521Yzjunmeuev hospital visit by Kaykay Mcclure MD Work Phone: [facility] RadiologyStart: 05-19-2023 End: 91-71-4854Akdpsg follow up visit related to original Delaney Green APRN-MARTY Work Phone: [facility] OrthopedicsComment on above:Hx of total knee arthroplasty, right (Primary Dx)Start: 05-19-2023 End: 85-26-6127Pjlspzafmz hospital visit by Marisol SCHWARTZ Work Phone: [facility] RadiologyStart: 03-18-2023 End: 47-44-1656Sadwbqfust hospital visit by Kaykay Mcclure MD Work Phone: [facility] RadiologyStart: 02-08-2023 End: 61-07-8594kfbfffiysoMT DOUGLAS HOY .Facility:J1Qdtzu: 11-03-2022 End: 09-18-2175ssnyelzohnHW DARREN De Santiagocility:I8Kcjeu: 10-18-2022 End: 36-26-5291dkckexcdshLI YULISA HOY .Facility:M2Ghhdu: 08-31-2022 End: 86-25-3819mbnddzpxpeSD JACK LANDAVERDE .Facility:Z3Hbwfe: 08-27-2022 End: 14-57-7690nxqnogushiSA YULISA HOY .Facility:T4Jeofp: 07-30-2022 End: 11-40-6454pwdwurfybgMU DARREN MONACOFacility:B7Duwbn: 04-20-2022 End: 82-78-3179nhmvxnsrabOL DARREN JACINDAFacility:A3Xvdvx: 04-20-2022 End: 25-61-7764zozhsrdppzBW YULISA BATRES .Facility:U1Azarq: 08-31-2021 End: 94-57-7632hxtlcdvpzyBypndl Elskens Other [facility] Vollee Other start: 67-94-7895Myinuv outpatient new 30 minutes Stephen DeanneFPG [facility] NeurosurgeryStart: 05-07-2021 End: 59-03-7335vzvbgwvivzPgb ReeseFacility:[facility] Start: 03-11-2021 End: 26-85-1234Dflpph outpatient visit 15 minutesNew Mcclure MD Work Phone: [facility] [place] OrthopedicsComment on above:Left knee pain, unspecified chronicity (Primary Dx); Right knee pain, unspecified chronicityStart: 11-19-2020 End: 79-29-3514Rjwace outpatient visit 15 Alice Mcclure Work Phone: [facility] [place] OrthopedicsComment on above:Hx of total knee arthroplasty, left (Primary Dx); Pain in prosthetic joint, initial encounterStart: 11-19-2020 End: 70-19-8063Mcotonvwoq hospital visit by Kaykay Mcclure Work Phone: [facility] [employer] RadiologyStart: 11-21-2019 End: 49-88-0857Mmxpnd outpatient visit 15 minutesNew Mcclure Work Phone: [facility] [place] OrthopedicsComment on above:History of total knee arthroplasty, left (Primary Dx); Arthritis of right kneeStart: 11-21-2019 End: 98-22-3373Nwwrkbbowe hospital visit by Kaykay Mcclure Work Phone: [facility] RadiologyStart: 04-18-2019 End: 42-52-1803Jxvujq outpatient visit 15 minutesNew Mcclure Otogami Phone: [facility] [place] OrthopedicsComment on above:Right hip pain (Primary Dx); Left knee pain, unspecified chronicity; Right knee pain, unspecified chronicityStart: 04-18-2019 End: 51-84-3167Eoyrqdl encounter procedureSebenezer Reachpod - Inovaktif Bilisim Phone: [email or web address] RadiologyStart: 03-01-2019 End: 00-90-9172Upbfejfzbf hospital visit by physicianSebenezer Reachpod - [employer]ov[employer] Bilisim Phone: [email or web address] RadiologyStart: 03-01-2019 End: 74-57-4816Lcdhgc encounterProvider OsumychartOhioHealth O'Bleness Hospitaltart: 03-01-2019 End: 27-88-8766Zdrnho outpatient visit 15 minutesFirmex Phone: [facility] OrthopedicsComment on above:History of total knee arthroplasty, left (Primary Dx); Right hip painStart: 03-01-2019 End: 07-69-0147Cbinqvi encounter procedureSsoniaToucan Global Phone: [email or web address] RadiologyStart: 02-23-2019 End: 71-01-3994Rjidhha encounter procedureOther [facility] Andersontart: 02-09-2019 End: 85-74-2728Dpnvxsmzo encounterAmanda DreherAvita [place] OrthopedicsComment on above:Leg SwellingStart: 01-05-2019 End: 73-93-2994Abxwdww encounter procedureOther [facility] Andersontart: 01-03-2019 End: 34-55-5168Ejziqy outpatient visit 15 minutesFirmex Phone: aviLuxr OrthopedicsComment on above:History of total knee arthroplasty, left (Primary Dx)Start: 12-14-2018 End: 75-04-8247Cirtkjt encounter procedureRajinder Abby [employer]ami Phone: [email or web address] RadiologyStart: 12-14-2018 End: 55-17-2747Opegcp follow up visit related to original pxRajinder Abby Work Phone: [facility] OrthopedicsComment on above:Hx of total knee arthroplasty, left (Primary Dx)Start: 12-06-2018 End: 19-60-7787Pdhmhbmqx encounterAmanda DreherAvita [place] OrthopedicsComment on above:Skin ProblemStart: 11-30-2018 End: 00-06-8467Jexzfei encounter procedureOther OtherNOTES/RESULTSStart: 11-21-2018 End: 86-33-4014Aektfffkve and management of inpatientSebenezer Mcclure Work Phone: [facility] Med SurgComment on above:Pain in left kneeStart: 10-23-2018 End: 90-52-7034Uokrxdm encounter procedureSebenezer Mcclure Work Phone: [facility] Pre AdmissionComment on above:Pre-op exam (Primary Dx)Start: 09-15-2018 End: 80-96-6113Voaoxuv encounter procedureRichard Velasquez [place] OrthopedicsStart: 48-14-5295YmzlzdpclwIitu A WoodFacility:[facility] hospitalStart: 61-09-2210OpgxxdjmdiOxyn A WoodFacility:[place]Start: 07-18-2017 End: 46-81-1482Uugticyvuf and management of inpatientSAnderson Regional Medical Centertart: 94-33-4374MtcomuiawqXHURYUC Health Procedures DateProcedureProcedure DetailPerforming ClinicianStart: 05-15-2025 End: 81-23-8883Kekqwi field xm uni/bi w/interp extended examJodwain Gilmore DO Work Phone: Start: 05-15-2025 End: 91-23-6490Hhvju medical xm&eval comprhnsv estab pt 1/>Intermediate stage nonexudative age-related macular degeneration of both eyesRamon Gilmore DO Work Phone: comment on above:Intermediate stage nonexudative age- related macular degeneration of both eyes (Primary Dx); Long-term use of hydroxychloroquineStart: 74-65-9336Uqhgt foot complete minimum 3 viewsNicsharona Harper DPM Work Phone: Start: 10-23-2024 End: 99-19-7813Rhlder emg ea extremty w/paraspinl area completeChristopher Moni DO Work Phone: Start: 82-94-6802Pdsyxk field xm uni/bi w/interp extended examJodwain Gilmore DO Work Phone: Start: 13-80-7054Kmwsurdlxbfk ophthalmic imaging retinaRamon Gilmore DO Work Phone: Start: 07-31-2024 End: 81-57-1623Mnwdl medical xm&eval comprhnsv estab pt 1/>Long-term use of hydroxychloroquineRamon Gilmore DO Work Phone: comment on above:Long-term use of hydroxychloroquine (Primary Dx); Intermediate stage nonexudative age-related macular degeneration of both eyes; Dry eyes; Left posterior capsular opacification; Blepharitis of upper and lower eyelids of both eyes, unspecified typeStart: 84-11-4290Lrv routine ecg w/least 12 lds w/i&rSebenezer Mcclure MD Work Phone: Start: 08-73-0047Iqixl typing serologic aboNew Mcclure MD Work Phone: Start: 10-03-5204Btfidmml blood count with white cell differential, automatedNew Mcclure MD Work Phone: Start: 93-38-9254Lvbeddypslmot metabolic panelSebenezer Mcclure MD Work Phone: Start: 91-07-2663Ogv prsmptv pthgnc organism scrn w/colony estimjSebenezer Mcclure MD Work Phone: Start: 71-11-9199Rexsptfqrx, reagent strip without microscopyNew Mcclure MD Work Phone: Start: 28-01-5540JihukxwnrulYkbzjhhs Brown DPM Work Phone: Start: 95-53-6110Cmyipgywbvohac aspir&/inj major jt/bursa w/o Miguel Mcclure MD Work Phone: Start: 82-56-0948Dbhfg-articular injectionSebenezer Mcclure Work Phone: Start: 27-21-8754Uxmmk-articular injectionSCloudAptitude Phone: Start: 53-40-3791Pziik-articular injectionSCloudAptitude Phone: Start: 11-24-2018 End: 41-12-5397NJY, EDIF, PLATELETRajinder Mysafeplace Work Phone: Start: 11-23-2018 End: 24-03-3404Vbkiu count complete auto&auto difrntl wbcTravelAIshelbi [employer] Work Phone: Start: 11-22-2018 End: 19-86-0684Kodud count complete auto&auto difrntl wbcNephrology Care Group Work Phone: Start: 11-21-2018 End: 07-49-3694B-ray of left kneeChaCrowdTogether Work Phone: Start: 11-21-2018 End: 73-87-5655Mdve count misc body fluids w/differential countSCloudAptitude Phone: Start: 11-21-2018 End: 19-19-3047Ivf bact melissa aerobic isol xcpt ur blood/stoolFirmex Phone: Start: 11-21-2018 End: 50-81-3376Qwrtkdu bacterial any source anaerobic iso&idSCloudAptitude Phone: Start: 11-21-2018 End: 65-38-6322Ojfjppz fngi mold/yeast prsmptv oth xcpt bloodFirmex Phone: Start: 11-21-2018 End: 60-71-5400Afqvuod tubercle/oth acid-fast bacilli any isolPrFive minutes Phone: Start: 11-21-2018 End: 44-51-4840CYPRQQ ABO/RH (D) TYPINGFirmex Phone: Start: 11-21-2018 End: 22-36-9454Lnejkl nuc acid amp prb cult/isolate ea orgnismChad [employer]afeplace Work Phone: Start: 10-23-2018 End: 77-02-0532Xmzztgpbshira Mcclure Work Phone: Plan of Treatment DateCare ActivityDetailAuthorStart: 02-19-2026 End: 23-14-5168Wbxorsn encounter gwmrryzhv39/15/2026 9:00 AM EDT Office Visit [facility] [address] [place] [address] Ramon Gilmore, DO [address] [place] [address] [facility] EyeStart: 11-27-2025 End: 11-99-0162Tjatcbk encounter ahxlrbrmd04/21/2026 10:30 AM EST Office Visit [facility] [address] [place] [address] New Mcclure MD [address] [place] [address] [facility] OrthopedicsStart: 09-05-2025 End: 63-33-7332Nzhzopu encounter procedureNOMS CI PODIATRYComment on above:Other polyneuropathy (Primary Dx); Pain due to onychomycosis of toenails of both feetStart: 33-69-1390CWISX-19 Vaccine ( season)COVID-19 Vaccine ( season)[facility] Start: 14-50-3183Tpoewqusv vaccinationInfluenza Vaccine (#1)[facility] Start: 06-20-2025 End: 76-42-7319Tgcjiie encounter kzdfklqel49/14/2025 8:30 AM EDT Procedure Visit [facility] [address] [facility] [address] [place] [address] Elie Harper DPM [address] [facility] [address] [place] [address] Pain due to onychomycosis of toenails of both feet (Primary Dx)N[facility] CI PODIATRYComment on above:Pain due to onychomycosis of toenails of both feet (Primary Dx)Start: 06-13-2025 End: 63-90-8441Yzwiexy encounter mrduvtohz82/07/2025 9:50 AM EDT Procedure Visit [facility] [address] [facility] [address] [place] [address] Elie Harper, DPKeri [address] [facility] [address] [place] [address] [facility] CI PODIATRYStart: 05-15-2025 End: 53-65-2331Uayioiu encounter mmdbypoia03/09/2025 9:00 AM EDT Office Visit [facility] [address] [place] [address] Ramon Gilmore, [address] [place] [address] ArrivedNOMS NB OPHTComment on above:ArrivedStart: 05-03-2025 End: 66-94-2787Wxspmcf encounter /27/2025 10:00 AM EDT Office Visit [facility] [address] [place] [address] Ramon Gilmore, [address] [place] [address] [facility] NB OPHTStart: 05-01-2025 End: 81-19-7261Getwzji encounter bbweiyimx47/25/2025 9:40 AM EDT Office Visit CHAR KRISHNA [address] [place] [address] Gaby Christianson NP [address] [place] [address] CHAR TURNEREVUEStart: 04-08-2025 End: 66-33-0555Wvlzpsp encounter /02/2025 9:20 AM EDT Office Visit CHAR HANSEN [address] [facility] [address] [place] [address] Gaby Christianson NP [address] [place] [address] CHAR ALONSOYStart: 04-04-2025 End: 31-19-8213Rxsagta encounter procedureNOMS CI PODIATRYComment on above:Pain due to onychomycosis of toenails of both feet (Primary Dx)Start: 03-14-2025 End: 85-21-7838Tuyzesw encounter ukfrwledb11/08/2025 11:00 AM EDT Procedure Visit CHAR KRISHNA [address] [place] [address] Magalie Kaufman DO [address] [place] [address] CHAR WATTStart: 03-07-2025 End: 37-98-2008Ddybcvu encounter procedureNOMS CI PODIATRYComment on above: Acquired deformity of left toe (Primary Dx); Other polyneuropathyStart: 02-28-2025 End: 20-98-3469Vrozjjo encounter procedureCHAR VENTURAUEComment on above:Arrived Start: 02-20-2025 End: 46-39-3229Uaeoajz encounter procedureNOMS SC PODComment on above:Acquired deformity of left toe (Primary Dx); Other polyneuropathyStart: 02-13-2025 End: 50-23-5184Piuvdfd encounter hiwbdfisy58/09/2025 3:40 PM EDT Office Visit [facility] [address] [place] [address] Elie Harper DPM [address] [facility] [address] [place] [address] Acquired deformity of left toe (Primary Dx); Other polyneuropathyNOMS SC PODComment on above:Acquired deformity of left toe (Primary Dx); Other polyneuropathyStart: 01-31-2025 End: 43-04-9853Fcjvbpx encounter vewalcurb55/27/2025 10:30 AM EDT Procedure Visit CHAR [place] [address] [place] [address] Magalie Kaufman DO [address] [place], [place] [address] CHAR VENTURAUEStart: 01-24-2025 End: 71-23-2556Ullwmld encounter dmudviyva54/20/2025 2:40 PM EDT Procedure Visit [facility] [address] [place] [address] Elie Harper, DPM [address] [address] [facility] CI PODIATRYStart: 01-24-2025 End: 35-83-5246Adqcaen encounter procedureNOMS [place] [facility] ROUTEStart: 01-17-2025 End: 31-85-4231Xifuogd encounter kqgnytqtv98/13/2025 10:00 AM EDT Office Visit [facility] [address] [place] [address] Elie Harper DPM [address] [address] [facility] CI PODIATRYStart: 01-10-2025 End: 89-84-1240Zjimntd encounter slyrsmwlc62/06/2025 10:20 AM EST Office Visit [facility] [address] [place] [address] Elie Harper DPM [address] [address] Cellulitis of left foot (Primary Dx); Acquired deformity of left toeNOMS CI PODIATRYComment on above:Cellulitis of left foot (Primary Dx); Acquired deformity of left toeStart: 01-02-2025 End: 84-20-0244Puwajww encounter qhpqjsumn12/26/2025 3:00 PM EST Office Visit [facility] [address] [place] [address] Elie Harper DPM [address] [address] ArrivedNOMS SC PODComment on above:ArrivedStart: 12-12-2024 End: 92-65-6243Kmjwhxx encounter procedureNOMS [place] STATE ROUTEComment on above:ArrivedStart: 64-61-3933Oeykkkkwv [Moles/volume] in Serum or Plasma POTASSIUMGrand Lake Joint [facility] SystemStart: 11-28-2024 End: 38-69-2247Uyddscg encounter bbabdcjij00/22/2025 11:10 AM EST Office Visit [facility] [address] [place] [address] New Mcclure MD [address] [place] [address] [facility] OrthopedicsStart: 11-15-2024 End: 40-07-1574Szguzcb encounter procedureNOMS CI PODIATRYComment on above:Pain due to onychomycosis of toenails of both feet (Primary Dx)Start: 11-03-2024 Potassium [Moles/volume] in Serum or PlasmaPOTASSIUMGreen Cross Hospitaltart: 10-25-2024 End: 24-80-7313Nixthga encounter procedureNOMS ERENDIRA STATE ROUTEComment on above:ArrivedStart: 10-23-2024 End: 54-80-8995Gpkvpox encounter procedureNOMS NE NEUROComment on above:Arrived Start: 10-15-2024 End: 92-53-3945SUY 1 ExtremeityEMG 1 Extremeity Neurology Routine Paresthesias Expected: 10/15/2024, Expires: 10/15/2025[facility] Work Phone: comment on above:Expected: 10/15/2024, Expires: 10/15/2025Start: 10-15-2024 End: 80-20-8994Vcgixvy encounter procedureNOMS ERENDIRA STATE ROUTEComment on above:ArrivedStart: 09-06-2024 End: 06-57-2559Ipxdovv encounter procedureNOMS CI PODIATRYComment on above:Pain due to onychomycosis of toenails of both feet (Primary Dx); Acquired deformity of left toeStart: 08-16-2024 End: 31-91-4123Mhqgxnc encounter procedureNOMS CI PODIATRYComment on above: Abscess of toe, right (Primary Dx); Acquired deformity of left toeStart: 08-02-2024 End: 06-91-0499Jvatfbb encounter procedureNOMS CI PODIATRYComment on above: Onychocryptosis (Primary Dx); Toe pain, right; Abscess of toe, right; Acquired deformity of left toeStart: 08-01-2024 End: 75-89-2226Evsvsau encounter nmnpcyywe56/25/2024 2:00 PM EDT Office Visit [facility] [address] [place] [phone] Audrey Gunter PA [address] [place] [phone] [facility] DERMStart: 07-31-2024 End: 27-16-4696Pxwdqqr encounter pjyayqqum59/24/2024 9:45 AM EDT Office Visit [facility] [address] [place] [phone] Ramon Gilmore DO [address] [place], [place] [phone] NOMS PELON OPHTStart: 07-26-2024 End: 81-50-8743Lwehfyd encounter procedureNOMS ERENDIRA STATE ROUTEComment on above:ArrivedStart: 07-16-2024 End: 56-23-5969Fnxgyem encounter procedureNOMS [place] STATE ROUTEComment on above:Spinal stenosis of lumbar region, unspecified whether neurogenic claudication present (Primary Dx); Degenerative disc disease, lumbar; Facet arthritis of lumbar region; Blepharospasm; Polyneuropathy; ParesthesiasStart: 86-19-3970Rcmuiuxln vaccinationINFLUENZA VACCINE (#1)[facility] SystemStart: 06-28-2024 End: 92-40-0262Rolvfbe encounter srlzewgek99/22/2024 2:00 PM EDT Procedure Visit [facility] [address] [facility] [address] [place] [id number] Elie Harper, DPM [address] [facility] [address] [place] [address] Acquired deformity of left toe (Primary Dx); Onychomycosis; Toe pain, bilateralNOMS CI PODIATRYComment on above:Acquired deformity of left toe (Primary Dx); Onychomycosis; Toe pain, bilateralStart: 05-31-2024 End: 96-61-1277Mqgfwkg encounter bvmifuqbo62/25/2024 9:30 AM EDT Office Visit [facility] [address] [place] [address] New Mcclure MD [address] [place] [address] [facility] OrthopedicsStart: 83-57-1371Ghlmldgkm [Moles/volume] in Serum or PlasmaPOTASSIUMGreen Cross Hospitaltart: 04-25-2024 End: 10-62-3615Jwoaagt encounter kearkdojy81/19/2024 11:40 AM EDT Office Visit [facility] [address] [place] [address] Rajinder Green APRN-CNP [address] [place] [address] [facility] OrthopedicsStart: 04-19-2024 End: 00-08-7408Rggasbg encounter mbnwevxsj51/13/2024 10:00 AM EDT Office Visit [facility] [address] [place] [address] New Mcclure MD [address] [place] [address] [facility] OrthopedicsStart: 03-22-2024 End: 75-46-7793Jriwjtb encounter rbxjcgokd05/16/2024 3:30 PM EDT Office Visit [facility] [address] [facility] [place] [address] New Mcclure MD [address] [facility] [place] [address] [facility] OrthopedicsStart: 02-23-2024 End: 42-68-6771Vlbpxfg encounter gdahltkza18/18/2024 11:00 AM EDT Office Visit [facility] [address] [place] [address], [place] [address] Rajinder Green APRN-HAIRSPRING FABRICATION SUPERVISOR [address] [place] [address] [facility] OrthopedicsStart: 11-29-2023 End: 65-18-6250Khowlibazi and management of [facility] PeriopComment on above:Failed total left knee replacement, initial encounterREVISION ARTHROPLASTY KNEEStart: 11-29-2023 End: 01-42-1460Ppeq tot knee arthrp fem&entire tibial componeREVISION ARTHROPLASTY KNEE Failed total left knee replacement, initial encounter 11/29/2023 10:00 AM [facility] ORStart: 11-03-2023 End: 21-75-9574GCVZRKM TO TRANSFUSE RED BLOOD CELLSPREPARE TO TRANSFUSE RED BLOOD CELLS Blood Bank Routine Preop testing Expected: 11/03/2023, Expires: 12/05/2023[facility] Work Phone: Comment on above:Expected: 11/03/2023, Expires: 12/05/2023Start: 09-01-2023 End: 58-12-8195Ytfyxwo encounter /26/2023 1:00 PM EDT Office Visit [facility] [address] [place] [address], [place] [address] New Mcclure MD [address] [facility] [place] [address] [facility] OrthopedicsStart: 14-46-2238Bgkqhkzvv for malignant neoplasm of breastNOMS HealthcareStart: 29-29-9126LTDKJ-19 VACCINE ( season)COVID-19 VACCINE ( season)[facility] SystemStart: 31-97-1258Dyewpszrq vaccinationINFLUENZA VACCINE (#1)[facility] SystemStart: 04-14-2023 End: 45-57-2427tzoabbmulw53/08/2023 Pre-Operative Nurse Assessment Internal MedicineP[facility] Pre AdmissionStart: 57-36-2056FBZFA-19 VACCINE (5 - Pfizer series)COVID-19 VACCINE (5 - Pfizer series)[facility] SystemStart: 07-08-2021 Influenza vaccinationINFLUENZA VACCINE (Season Ended)[facility] SystemStart: 11-19-2020 End: 48-77-6987Gsiwgz Visit11/19/2020 Office Visit Orthopaedics New Mcclure MD [address] [place] [address] [phone] [facility] OrthopedicsStart: 05-43-7457Tgkcvxvzv molar [facility] Work Phone: Start: 84-20-1946Kydgncvhu molar [facility] Work Phone: Start: 11-22-2019 End: 13-55-7907Dwqtsf Visit11/22/2019 Office Visit Orthopaedics New Mcclure MD [address] [place] [address] [phone] [facility] OrthopedicsStart: 88-59-2896Spctkkwky molar concPOTASSIUMGrand [facility] District [facility] Hospital SystemStart: 76-71-5261Ktrbumxbhock vaccinationPNEUMOCOCCAL VACCINE SERIES (2 of 2 - PPSV23 or PCV20)[facility] SystemStart: 04-79-3943Dgmdfqqeyiqo Vaccine: 65+ Years (2 of 2 - PPSV23 or PCV20)Pneumococcal Vaccine: 65+ Years (2 of 2 - PPSV23 or PCV20)[facility] HealthcareStart: 97-70-5826Nsnywomju vaccinationOHIOHEALTH DUBLIN METHODIST HOSPITALStart: 04-18-2019 End: 98-81-7269Kmhhyt Visit04/18/2019 Office Visit Orthopaedics New Mcclure MD [address] [place] [address] [facility] OrthopedicsStart: 03-01-2019 End: 07-77-4033Qvmfhc VisitP[facility] OrthopedicsComment on above:Arrived History of total knee arthroplasty, left (Primary Dx)Start: 02-23-2019 End: 14-08-7686Q-ray of left kneeXR KNEE LEFT 2 VIEWS Imaging Routine History of total knee arthroplasty, left Expected: 02/23/2019,Expires: 03/23/2019AVITA HEALTHComment on above:Expected: 02/23/2019, Expires: 03/23/2019Start: 01-03-2019 End: 27-70-5447Tprzypjxjr86/27/2019 Office Visit Orthopaedics New Mcclure MD [address] [place] [address] [facility] OrthopedicsStart: 12-28-2018 End: 29-89-4969U-ray of left kneeXR KNEE LEFT 2 VIEWS Imaging Routine History of total knee arthroplasty, left Expected: 12/28/2018,Expires: 01/25/2019[facility]ENTERTA HEALTHComment on above:Expected: 12/28/2018, Expires: 01/25/2019Start: 12-14-2018 End: 98-85-4440OybbokgkygVzqjt Health RadiologyStart: 08-63-6882Mxeeguujvi 11/21/2018 Procedure PassP[facility] PeriopStart: 13-48-3238Sxpufzxbj EncounterP[facility] PeriopComment on above:REVISION ARTHROPLASTY KNEE - extensor mech reconstruction - leftExtensor mechanism malalignmentStart: 10-23-2018 End: 28-11-4169Lozvicjgba93/17/2018 Pre-Operative Nurse Assessment Internal MedicineP[facility] Pre AdmissionStart: 95-83-1858Nlsunsc of potassium level (finding)[facility] Work Phone: Start: 09-06-2513Bebfxubudlim vaccinationAviAdena Health Systemtart: 31-25-2173Vjzruobcp vaccinationINFLUENZA VACCINE (#1)[facility] Work Phone: Start: 17-56-3757ZKM VACCINE (1 - 1-dose 60+ series) RSV VACCINE (1 - 1-dose 60+ series)[facility] Hospital[facility]art: 2003 [facility]oscopyCl[facility] Work Phone: Start: 11-73-1719Irarkuc mass concCOLON CANCER SCREENING [facility] Work Phone: Start: 43-33-4026Uluobh vaccine hzv live for subcutaneous useZOSTER (SHINGLES) VACCINE (1 of 2)[facility] Hospitaltart: 30-88-2118Revimpldx for malignant neoplasm of colonCOLORECTAL CANCER SCREENING DISCUSSIONGreen Cross Hospitaltart: 36-22-7834Dcpbbmz lipid profileLIPID SCREENINGCl[facility] Hospital Work Phone: Start: 29-48-2891Ikuna panelLIPID SCREENINGGreen Cross Hospitaltart: 90-59-8962Sfivjsc mass concMAMMOGRAM SCREENING DISCUSSION [facility] Work Phone: Start: 67-14-9294Kjmpfsrcf for malignant neoplasm of breastMAMMOGRAM SCREENING DISCUSSIONGreen Cross Hospitaltart: 1995 Screening mammographyMAMMOGRAM SCREENING [facility] Work Phone: Start: 10-41-5217Yrocabfho for malignant neoplasm of cervixGrand [facility] Hospital SystemStart: 78-22-2205Cptrx diphtheria, tetanus and acellular pertussis (DTaP) vaccinationTDAP (ADULT)[facility] Hospitaltart: 30-42-9985Liznatm vaccinationTETANUSClinton Memorial Hospital Work Phone: Start: 96-10-5606CGFMU-19 VACCINE (1)COVID-19 VACCINE (1)[facility]art: 38-73-2161UThX/Tdap/Td Vaccines (1 - Tdap) DTaP/Tdap/Td Vaccines (1 - Tdap)[facility] HealthcareStart: 54-78-4126Fhqujgkua C screeningHEPATITIS C VIRUS SCREENINGGreen Cross Hospitaltart: 1955 Screening for malignant neoplasm of colonNOMS HealthcareStart: 27-63-0621Axbhvqj vaccinationTETANUSARegional Medical Centertart: 1955 End: 21-73-5571Meidhgnih C antibody, confirmatory testHEPATITIS C VIRUS SCREENINGCl[facility] Work Phone: Start: 1955 End: 42-55-1378Emjebxivy for osteoporosisDEXA SCAN [facility] ACID FAST [facility] Work Phone: Comment on above:ONE TIME for 1 Occurrences starting 11/21/2018ANAEROBE [facility] Work Phone: Comment on above:ONE TIME for 1 Occurrences starting 11/21/2018BACTERIAL CULTURE AND DIRECT SMEAR, LESION, TISSUE, DEVICEBACTERIAL CULTURE AND DIRECT SMEAR, LESION, TISSUE, DEVICE Routine Extensor mechanism malalignment ONE TIME for 1 Occurrences starting 11/21/2018[facility] Work Phone: Comltaf on above:ONE TIME for 1 Occurrences starting 11/21/2018Basic metabolic 2000 panel - Serum or PlasmaBASIC METABOLIC PANEL Routine Pre-op exam Ordered: 10/23/2018[facility] Work Phone: Comment on above:Ordered: 10/23/2018BODY FLUID CULTURE AND DIRECT SMEARBODY FLUID CULTURE AND DIRECT SMEAR Routine 11/21/2018 11:00 AM [facility] Work Phone: CBC, EDIF, PLATELETCBC, EDIF, PLATELET Routine Pre-op exam Ordered: 10/23/2018[facility] Work Phone: Comment on above:Ordered: 10/23/2018Electromyography [facility]FUN[facility] Work Phone: Comment on above:ONE TIME for 1 Occurrences starting 11/21/2018Hemoglobin A1c/Hemoglobin.total mass fraction (Bld)HEMOGLOBIN A1C Routine Pre-op exam Ordered: 10/23/2018[facility] Work Phone: Comment on above:Ordered: 10/23/2018LARGE JOINT INJECTION: R kneeLARGE JOINT INJECTION: R knee Procedures Routine Right knee pain, unspecified chronicity 04/18/20194:00 PM EDTACashStar HEALTHMR Lumbar spine WO [facility] CenterPROTIME-INRPROTIME-INR STAT Pre-op exam Ordered: 10/23/2018[facility] Work Phone: Comment on above:Ordered: 10/23/2018Radiography for bone length studiesXR BONE LENGTH STUDY Imaging Routine Hx of total knee arthroplasty, right 09/01/2023 12:48 PM EDTAMediamind Health SystemRadiography for bone length studiesXR BONE LENGTH STUDY Imaging Routine Hx of total knee arthroplasty, left Ordered: 4[facility] SystemComment on above: Ordered: 4Radiography of hipXR HIP WITH PELVIS RIGHT Imaging Routine Right hip pain 03/01/2019 2:59 PM EDTAVITA HEALTHSCREEN: MRSA ONLY, NARES (ISOLATION SCREEN)SCREEN: MRSA ONLY, NARES (ISOLATION SCREEN) Routine Pre-op exam Ordered: 10/23/2018[facility] Work Phone: Comment on above:Ordered: 10/23/2018Standard ECGECG Routine Pre-op exam 10/23/2018 8:53 AM [facility] Work Phone: TISSUE CULTURETISSUE CULTURE Routine 11/21/2018 11:00 AM [facility] Work Phone: TYPE AND SCREEN - POSSIBLE TRANSFUSIONTYPE AND SCREEN - POSSIBLE TRANSFUSION Routine Pre-op exam Ordered: 10/23/2018[facility] Work Phone: Comment on above:Ordered: 10/23/2018TYPE AND SCREEN - POSSIBLE TRANSFUSIONTYPE AND SCREEN - POSSIBLE TRANSFUSION Blood Bank Today Preop testing 11/03/2023 9:50 AM AccountNowURINALYSIS, MACRO URINALYSIS, MACRO Routine Pre-op exam Ordered: 10/23/2018[facility] Work Phone: Comment on above:Ordered: 10/23/2018X-ray of left knee [facility] Work Phone: End: 80-38-2896J-ray of left kneeXR KNEE LEFT 2 VIEWS Imaging Routine History of total knee arthroplasty, left 1 Occurrences starting 03/01/2019 until 03/01/2019[employer] TechnologiesComment on above:1 Occurrences starting 03/01/2019 until 03/01/2019XR Knee - left 2 ViewsXR KNEE LEFT 2 VIEWS Imaging Routine Left knee pain, unspecified chronicity 03/18/2023 11:12 AM Digital Message Display SystemXR Knee - left 2 ViewsXR KNEE LEFT 1-2 VIEWS Imaging Routine Hx of total knee arthroplasty, left 12/22/2023 1:17 PM Lovely SystemXR Knee - left 2 ViewsXR KNEE LEFT 1-2 VIEWS Imaging Routine Hx of total knee arthroplasty, left 02/23/2024 11:01 AM Digital Message Display SystemXR Knee - left 2 ViewsXR KNEE LEFT 1-2 VIEWS Imaging Routine Pain in both knees, unspecified chronicity 03/22/2024 3:36 PM [employer] Work Phone: XR Knee - left 2 ViewsXR KNEE LEFT 1-2 VIEWS Imaging Routine Pain in both knees, unspecified chronicity 04/19/2024 10:07 AM Digital Message Display SystemXR Knee - left 2 ViewsXR KNEE LEFT 1-2 VIEWS Imaging Routine Pain in both knees, unspecified chronicity 05/31/2024 9:37 AM [employer] XR Knee - left 3 ViewsXR KNEE LEFT 3 VIEWS Imaging Routine Hx of total knee arthroplasty, left 09/01/2023 12:48 PM [employer] Work Phone: XR Knee - left 3 ViewsXR KNEE LEFT 3 VIEWS Imaging Routine Hx of total knee arthroplasty, left 11/28/2024 11:17 AM [employer] Work Phone: XR Knee - right 2 ViewsXR KNEE RIGHT 2 VIEWS Imaging Routine Right knee pain, unspecified chronicity 03/18/2023 11:12 AM [employer] End: 98-21-0773KD Knee - right 2 [employer] Work Phone: Comment on above:1 Occurrences starting 01/12/2024 until 01/12/2024 End: 20-02-1912ZB Knee - right 2 PaytellerComment on above:1 Occurrences starting 02/23/2024 until 02/23/2024XR Knee - right 2 ViewsXR KNEE RIGHT 1-2 VIEWS Imaging Routine Pain in both knees, unspecified chronicity 03/22/2024 3:36 PM LemonQuestXR Knee - right 2 ViewsXR KNEE RIGHT 1- 2 VIEWS Imaging Routine Pain in both knees, unspecified chronicity 04/19/2024 10:07AM [employer] Work Phone: XR Knee - right 2 ViewsXR KNEE RIGHT 1-2 VIEWS Imaging Routine Pain in both knees, unspecified chronicity 05/31/2024 9:37 AM LemonQuestXR Knee - right 2 ViewsXR KNEE RIGHT 1-2 VIEWS Imaging Routine Hx of total knee arthroplasty, right 11/28/2024 11:17 AM AccountNowXR Knee - right 3 ViewsXR KNEE RIGHT 3 VIEWS Imaging Routine Hx of total knee arthroplasty, right 05/19/2023 2:33 PM [employer] Work Phone: XR Knee - right 3 ViewsXR KNEE RIGHT 3 VIEWS Imaging Routine Hx of total knee arthroplasty, right 09/01/2023 12:48 PM LemonQuestXR Knee - right 3 ViewsXR KNEE RIGHT 3 VIEWS Imaging Routine Right knee pain, unspecified chronicity Ordered: 01/09/2024PixelEXX SystemsComment on above:Ordered: 01/09/2024 Immunizations Immunization DateImmunizationNotesCare YuzocsknRltkefjd99-76-5816sixkyqgdn virus vaccine, unspecified formulationRamon Gilmore DO Work Phone: [facility] HospitalAsnenkewyj58-94-7436cwpilrkwg virus vaccine, unspecified formulationSebenezer Mcclure MD Work Phone: [facility] HospitalKecgil95-47-8972hijfgvcvm virus vaccine, unspecified formulationRajinder CHAHAIRSPRING FABRICATION SUPERVISOR Work Phone: [facility] HospitalAmjxwh77-59-0285nglwefbauhqh conjugate vaccine, 13 valJim Harper DPM Work Phone: [facility] HospitalFwxlqaakoc92-03-1494xxllgjlnx virus vaccine, unspecified formulationRichard [facility] Work Phone: Payers DatePayer CategoryPayerPolicy [id number]-itu [id number] Cross Blue ShieldBCBS ..[id number] [id number] 2018MedicareMEDICARE MEDICARE A AND B xxxxxxxxxxx 2017-Present [place], [place] [id number] 2018MedicareMEDICARE MEDICARE A AND B [id number] 2017-Present [place], [id number] 1.2.840.830431.1.13.172.2.7.3.803832.315 2018Medicare 1.2.840.009854.1.13.172.2.7.3.593550.81503-79-1992RjxmywgSAJOCJ ANTHEM TRADITIONAL xxxxxxxxxxxx 2017-Presentxxxxxxxxxxxx 1.2.840.011631.1.13.172.2.7.3.722104.88821-24-2912IotkrtdECLQDD ANTHEM TRADITIONAL iezinzop9914 2017-Yxfztnaqvosjznn2010 1.2.840.545442.1.13.172.2.7.3.252513.315 [id number] 2.840.1.626001.90727594-20-5143Glrz Cross Blue VfanqjLPW081V61440 2.16840.8.787236.71186788-69-2614Vdzafev3397920 2.840.1.644917.3.579.2.593 69-09-0432Osuicbe3504391 2.16840.1.121290.3.579.2.02791-91-9261Zraxlrn2776753 2.16840.1.969363.3.579.2.70347-26-3608Lufgilm6130199 2.16.840.1.408562.3.579.2.52166-00-3505Jxrrbcq2527574 2.16.840.1.818291.3.579.2.80062-27-7389Kyvodwj5621927 2.16.840.1.837097.3.579.2.54203-18-6862Orbxnep6569787 2.16.840.1.895386.3.579.2.45449-76-0591Rpqhujq9230556 2.16.840.1.424926.3.579.2.83204-42-2621Euzovav09008229 2.16.840.1.627655.3.579.2.43383-00-6820Unjrics10835327 2.16.840.1.136260.3.579.2.55278-04-0728Diwdttj73616605 2.16.840.1.681777.3.579.2.73783-55-4743Vtcdzoh18043050 2.16.840.1.836994.3.579.2.74439-22-2736Vwwcqvz41422242 2.16.840.1.899975.3.579.2.27268-31-4605Sraojpm51710652 2.16.840.1.668120.3.579.2.78677-96-9971Daoadye35686160 2.16.840.1.032285.3.579.2.15802-00-9240Assedei71653288 2.16.840.1.782187.3.579.2.85022-31-2256Vcjgbpy50830466 2.16.840.1.848958.3.579.2.40478-69-8407Xmshaba63875915 2.16.840.1.276656.3.579.2.74681-81-9596Eevoxrz84553178 2.16.840.1.322140.3.579.2.64237-43-5957Nubzuwl50426055 2.16.840.1.060277.3.579.2.61782-58-6900Eiwkflw30120801 2.16.840.1.660643.3.579.2.77802-52-3136Zmgtajn57181336 2.16.840.1.150203.3.579.2.31021-12-9441Eaejxje03044999 2.16.840.1.532499.3.579.2.680084-12-3397Wajscoo74703605 2.16.840.1.966413.3.579.2.170648-72-3710Qldtjmi54241534 2.16.840.1.059086.3.579.2.995272-15-5864Lugvnmw8651281 2.16.840.1.508419.3.579.2.863310-35-3223Izoztyj9592337 2.840.1.257960.3.579.2.685979-09-2745Ercvbvk1287196 2.840.1.583976.3.579.2.179237-81-2552Hurbzih9315795 2.840.1.696210.3.579.2.433026-26-8518Xkgixcj1439317 2.840.1.254689.3.579.2.213278-76-2383Nkkuzrl2097004 2.840.1.836755.3.579.2.346763-95-6461Asbscaz1735481 2.840.1.371214.3.579.2.361391-10-5737Cpzoduf7942128 2.840.1.084864.3.579.2.418550-38-4745Wxjkugw1270949 2.16.840.1.070316.3.579.2.121613-35-9886Aprcffi5352715 2.840.1.775485.3.579.2.967293-95-1099Wzigaey5975239 2.16.840.1.078259.3.579.2.866841-21-5579Zwiedhf9797914 2.16.840.1.246326.3.579.2.291049-48-1646Hkfbekw4394705 2.16.840.1.221659.3.579.2.911597-51-3635Ohavnqi2550847 2..840.1.385821.3.579.2.044036-52-2841Olwsusr1276449 2..840.1.902078.3.579.2.691193-98-8282Cskktik8422303 2.16.840.1.671449.3.579.2.1259Private Health Zfkelrmzm114261388IftpucnVCL [id number] 270r0o08-cva9-46bf-a008-5b2497ei231lXpobcsg40507635 2.16.840.1.230054.3.579.2.531 Social History DateTypeDetailFacilityStart: 10-23-2018 End: 42-54-7823Vynmokd smoking status NHISNever smokerGreen Cross Hospitaltart: 22-65-6984Gpj Assigned At BirthNot on [facility] Work Phone: Start: 11-21-2019 End: 92-53-5948Aedsllz intakeCurrent non-drinker of alcohol (finding)[facility]ITALStart: 11-19-2020 End: 31-64-4338Mvdxoru use and exposureNever usedGrand Lake Joint Township District Memorial Hospital SystemStart: 05-19-2023 End: 27-35-3395Efr Assigned At BirthGrand Lake Joint Township [facility] Hospital SystemStart: 05-19-2023 End: 13-38-2977Zgoxnhl of Social functionGrand Lake Joint Township District Memorial Hospital SystemStart: 03-30-2023 Gender identityIdentifies as female gender (finding)[facility]: 04-16-2023 End: 35-14-6463Kwqnsdif to SARS-CoV-2 (event)Not sureGreen Cross Hospitaltart: 53-24-6929Rcf [facility]Has the electric, gas, oil, or water company threatened to shut off services in your home in past 12MoNoAPremier Health Miami Valley Hospital System(I/We) worried whether (my/our) food would run out before (I/we) got money to buy more.Never trueGreen Cross Hospitaltart: 52-30-6627Mg the past 12 months, has lack of transportation kept you from medical appointments or from getting medications?[facility] SystemStart: 08-16-2024 End: 16-00-0246Xsngtvqhf beverage intakeDeferNOWA HealthcareStart: 04-24-2024 Alcohol CommentCaffeine: Current some daysMCKAY-DEE HOSPITAL CENTER HealthcareStart: 81-12-8168Qbehhq orientationHeterosexual (finding)[facility] HealthcareSexFemale (finding)[facility] Medical Equipment Procedure CodeEquipment CodeEquipment Original TextEquipment IdentifierDates Prolite Mesh 25.4 Cm X 35.5cmStart: 87-08-3234Txrtdnl R 1x40 Single - [id number] Start: 97-54-4969Isehqui Mesh 25.4 Cm X 35.5cmStart: 68-05-9258Eyhakoz R 1x40 Single - [id number]: 13-47-6449Whhdnmy Mesh 25.4 Cm X 35.5cmStart: 20-35-1857Oajvvld R 1x40 Single - [id number]: 10-44-1559Lkrwcds Mesh 25.4 Cm X 35.5cmStart: 89-29-7854Ibgtlfs R 1x40 Single - [id number]: 11-21-2018 Prolite Mesh 25.4 Cm X 35.5cmStart: 56-59-5230Ilvsfhv Mesh 25.4 Cm X 35.5cm Start: 04-99-9002Dldonma R 1x40 Single - [id number]: 31-91-4785Wskszcc R 1x40 Single - [id number]: 21-47-0872Bcidleg Mesh 25.4 Cm X 35.5cmStart: 07-64-0531Eypfxyz Mesh 25.4 Cm X 35.5cmStart: 39-82-5282Mkuvimz R 1x40 Single - [id number]: 83-48-9135Weaypwc R 1x40 Single - [id number]: 11-21-2018 Prolite Mesh 25.4 Cm X 35.5cmStart: 66-62-9465Nxtoxvi Mesh 25.4 Cm X 35.5cm Start: 66-56-1595Tsrsnow R 1x40 Single - [id number]: 32-24-0271Vuqnjzc R 1x40 Single - [id number]: 30-40-8302Nnauymn Mesh 25.4 Cm X 35.5cmStart: 25-99-1596Cjrzuuk Mesh 25.4 Cm X 35.5cmStart: 94-67-7010Zgrgwdi R 1x40 Single - [id number]: 57-10-9245Iskyohj R 1x40 Single - [id number]: 11-21-2018 Prolite Mesh 25.4 Cm X 35.5cmStart: 18-06-7149Snzjlxt Mesh 25.4 Cm X 35.5cm Start: 48-07-8320Akjvwna R 1x40 Single - [id number]: 33-90-0028Fwzpjng R 1x40 Single - [id number]: 73-82-6561Kaqmley Mesh 25.4 Cm X 35.5cmStart: 71-08-5168Dnrnzuy Mesh 25.4 Cm X 35.5cmStart: 78-40-1063Hzlzylj R 1x40 Single - [id number]: 07-55-8838Kfjgvwb R 1x40 Single - [id number]: 11-21-2018 Prolite Mesh 25.4 Cm X 35.5cmStart: 84-95-2429Skntycr Mesh 25.4 Cm X 35.5cm Start: 81-22-2577Lgkbcbk R 1x40 Single - [id number]: 36-27-5535Ddylgnx R 1x40 Single - [id number]: 73-24-8104Szfsrxc Mesh 25.4 Cm X [id number]_imp Start: 07-61-4880Jahoptw R 1x40 Single - [id number]_xkxBzamh: 11-21-2018 Prolite Mesh 25.4 Cm X 35.5cmStart: 74-55-4823Kqtwzwf Mesh 25.4 Cm X 35.5cm Start: 97-84-0152Ktvmhzo R 1x40 Single - [id number]: 81-62-3781Sphbuqt R 1x40 Single - [id number]: 18-38-8523Dyadftn Mesh 25.4 Cm X 35.5cmStart: 55-56-3164Bjljbyh R 1x40 Single - [id number]: 30-40-1283Ognkqqp Mesh 25.4 Cm X 35.5cmStart: 21-43-1782Zxxblzg Mesh 25.4 Cm X 35.5cmStart: 11-84-8241Bvnapvt R 1x40 Single - [id number]: 23-48-6917Hbcuvow R 1x40 Single - [id number] Start: 30-35-0893Dnolla Tibial Insert Fixed Bearing Posterior Stabilized [id number]: 55-42-4127Xpdpoh Knee System Revision Distal Femoral Augment Size 7 12mm [id number]_uxfApyyj: 94-74-0933Aialuso Mesh Polypropylene Nonabsorbable Synthetic Surgical Mesh 12 X 12 [id number]_impStart: 11-29-2023 Attune Knee System Revision Pressfit Stem 12mm X [id number]_impStart: 27-66-7754Jkfaiw Knee System Revision Distal Femoral Augment Size 7 12mm Udutcjyf0859274_aheBahbo: 62-30-7254Oowlxi Knee System Revision Tibial Base Rotating Platform Size 5 [id number]_iftXrqqs: 12-33-2544Srzekm Knee System Revision Tibial Sleeve Poracoat Partially Coated [id number]_impStart: 01-96-5373Nayvbx Knee System Revision Femoral Sleeve Porocoat Partially Coated 40mm1276245_impStart: 07-53-4761Evoogf Knee System Revision Posterior Femoral Augment Size 7 4mm [id number]_idfJsfcp: 18-58-4925Zrbbqx Knee System Revision Crs Femoral Size 7 Left Jgcxbitp2649933_chxMioyz: 95-27-7335Lcvemds R+G 1x40 Single With Gentamicin - [id number]_vzfFabpi: 61-27-0687Amjdxdw R 1 X 40 - [id number]_inpMsmsb: 41-77-8734Foylqn Knee System Revision Tibial Base Fixed [id number]_hrxZkzdq: 04-76-2723Zzlmud Femoral Posterior Cznjsakewn5093421_mloIhkqa: 78-17-0989Wddwac Patella Medialized Iyct7222692_rey Start: 20-55-2470Shbaxwln Cancellous Bone Mesuf2622367_ydrTbzvq: 04-26-2023 Attune Knee System Revision Pressfit Dcbp2763569_ktdJwpai: 01-93-4601Feazuak R & G Bone Cement High-Viscosity With Gentamicin - [id number]_rauRxwjr: 95-62-5059Ulvgos Knee System Revision Crs Rotating Platform Oszhnu2391272_iee Start: 11-29-2023 Clinical Notes 03-11-2021 to 09-05-2025 Note Date & OzvxJgomTotgjrmi39-31-3126 History of Present illness Narrative* Elie Harper, PK - 09/05/2025 8:30 AM EDT Patient: Danyelle Haskins : 1955 PCP: Yulisa Batres MD SUBJECTIVE This is a 70 y.o. [...] mouth in the morning., Disp: , Rfl: Wubugjksqru-Mtwiofttl-Xkh C-Mn (Glucosamine 1500 Complex) capsule, as directed [...] No Food Insecurity (11/29/2023) Received from [facility] Hunger Vital Sign Within the past 12 months, you worried that your food would run out before you got the money to buymore.: Never true Within the past 12 months, the food you bought just didn't last and you didn't have money to get more.: Never true Transportation Needs: No Transportation Needs (11/29/2023) Received from [facility] PRAPARE - Transportation Lack of Transportation (Medical): No Lack of Transportation (Non-Medical): No Physical Activity: Not on file Stress: Not on file Social Connections: Not on file Intimate Partner Violence: Not on file Housing Stability: Low Risk (11/29/2023) Received from [facility] Housing Stability Vital Sign Unable to Pay [...] Elie Harper DPM documented in this encounterSt. Louis Children's HospitalCtaiwdccst44-56-5386 History of Present illness Narrative* Elie Harper DPM - 06/20/2025 8:30 AM EDT Patient: Danyelle [...] mouth in the morning., Disp: , Rfl: Tpbxxszushf-Lakwkdlnr-Goa C-Mn (Glucosamine 1500 Complex) capsule, as directed [...] Insecurity: No Food Insecurity (11/29/2023) Received from [facility] Hunger Vital Sign Worried About Running Out of Food in the Last Year: Never true Ran Out of Food in the Last Year: Never true Transportation Needs: No Transportation Needs (11/29/2023) Received from [facility] PRAPARE - Transportation Lack of Transportation (Medical): No Lack of Transportation (Non-Medical): No Physical Activity: Not on file Stress: Not on file Social Connections: Not on file Intimate Partner Violence: Not on file Housing Stability: Low Risk (11/29/2023) Received from [facility] Housing Stability Vital Sign Unable to [...] Elie Harper DPM documented in this encounterSt. Louis Children's HospitalJxbwbsdgsu43-55-0691 NoteRight Eye Reliability was good. Progression has been stable. Foveal threshold was normal. Findings include normal observations. Left Eye Reliability was good. Progression has been stable. Foveal threshold was normal. Findings include normal observations.St. [facility] HospitalWmfnaunsny59-79-7687 NoteRight Eye Quality was good. Scan locations included subfoveal. Progression has been stable. Findings include normal observations. Left Eye Quality was poor. Scan locations included subfoveal. Progression has been stable. Findings include normal observations. Notes Good scan with normal appearanceSt. Louis Children's HospitalQircxrrhsq30-99-4287 History of Present illness Narrative* Ramon Gilmore [...] 1,000 mcg by mouth in the morning. Rwtqnupxfcw-Mxpawblyf-Whm C-Mn (Glucosamine 1500 Complex) capsule as directed [...] above evaluations. This will be adjusted to o1fzjgtu when deemed necessary due to macular risk [...] laser capsulotomy, they are to notify their technical training instructor promptly if they have a significant [...] scrubs were recommended. documented in this encounterSt. Louis Children's HospitalYjxlzldaao70-93-6229 Evaluation note* Diagnosis Onset Date Resolution Status Admit Date Blepharospasm chronicJune 2024 9:33amCarpal tunnel syndrome, bilateralchronicJune 2024 9:33amDDD (degenerative disc disease), lumbarchronicJune 2024 9:33am Facet arthritis of lumbar regionchronicJune 2024 9:33amPolyneuropathy chronicJune 2024 9:33amSpinal stenosis of lumbar regionchronicJune 2024 9:33am [facility] Work Phone: 1(725) 260-589806-25-2025 Evaluation note* Diagnosis Onset Date Resolution Status Admit Date Blepharospasm chronicJune 2024 9:33amCarpal tunnel syndrome, bilateralchronicJune 2024 9:33amDDD (degenerative disc disease), lumbarchronicJune 2024 9:33am Facet arthritis of lumbar regionchronicJune 2024 9:33amPolyneuropathy chronicJune 2024 9:33amSpinal stenosis of lumbar regionchronicJune 2024 9:33amBlepharospasmchronicSeptember 2024 10:38amCarpal tunnel syndrome, bilateralchronicSeptember 2024 10:38amPolyneuropathychronic Alanis 2024 10:38amSpinal stenosis of lumbar regionchronicSeptember 2024 10:38am [facility] Work Phone: 1(487) 543-619906-25-2025 Evaluation note* Diagnosis Onset Date Resolution Status Admit Date Blepharospasm chronicJune 2024 9:33amCarpal tunnel syndrome, bilateralchronicJune 2024 9:33amDDD (degenerative disc disease), lumbarchronicJune 2024 9:33am Facet arthritis of lumbar regionchronicJune 2024 9:33amPolyneuropathy chronicJune 2024 9:33amSpinal stenosis of lumbar regionchronicJune 2024 9:33amFacet arthropathy, lumbaracuteSeptember 2024 10:38am BlepharospasmchronicSeptember 2024 10:38amCarpal tunnel syndrome, bilateralchronicSeptember 2024 10:38amPolyneuropathychronicSept2024 10:38amSpinal stenosis of lumbar regionchronicSeptember 2024 10:38am [facility] Work Phone: 1(708) 292-836405-29-2025 History of Present illness Narrative* Elie Harper, PK - 04/04/2025 11:50 AM EDT Patient: Danyelle [...] mouth in the morning., Disp: , Rfl: Hnhblplkesu-Mvswukdtf-Iju C-Mn (Glucosamine 1500 Complex) capsule, as directed [...] Insecurity: No Food Insecurity (11/29/2023) Received from [facility] Hunger Vital Sign Worried About Running Out of Food in the Last Year: Never true Ran Out of Food in the Last Year: Never true Transportation Needs: No Transportation Needs (11/29/2023) Received from [facility] PRAPARE - Transportation Lack of Transportation (Medical): No Lack of Transportation (Non-Medical): No Physical Activity: Not on file Stress: Not on file Social Connections: Not on file Intimate Partner Violence: Not on file Housing Stability: Low Risk (11/29/2023) Received from [facility] Housing Stability Vital Sign Unable to [...] Elie Harper DPM documented in this encounterSt. Louis Children's HospitalUacskypkfs08-00-7994 Telephone encounter Note* Telephone Encounter - Gaby Christianson NP - 03/20/2025 3:00 PM EDT OARRS reviewed. Due now. Prescription sent. [facility] HospitalPljuckazzf28-10-6749 Miscellaneous Notes* Telephone Encounter - Gaby Christianson NP - 03/20/2025 3:00 PM EDT OARRS reviewed. Due now. Prescription sent. * Telephone Encounter - REGINALD Snider - 03/20/2025 2:24 PM EDT Patient left message requesting refill of pregabalin 25mg sent to [facility] in [place]. (.Continue Lyrica 25 mg by mouth twice a day ... Per Gaby Christianson NP on 12/12/24) documented in this [facility]05-14-2025 Telephone encounter Note* Telephone Encounter - REGINALD Snider - 03/20/2025 2:24 PM EDT Patient left message requesting refill of pregabalin 25mg sent to [facility] in [place]. (.Continue Lyrica 25 mg by mouth twice a day ... Per Gaby Christianson SUPERINTENDENT COMPRESSOR STATIONS on 12/12/24) [facility] Nqvbvpphxq71-28-3249 History of Present illness Narrative* Elie Harper, DPM - 03/07/2025 8:30 AM EDT Patient: [...] region, without neurogenic claudication Spondylolisthesis Trigeminal neuralgia ([facility]) Medications: Current Outpatient Medications: acetaminophen [...] mouth in the morning., Disp: , Rfl: Qrvbwgwpebc-Akudycplg-Exs C-Mn (Glucosamine 1500 Complex) capsule, as directed [...] gear Elie Harper DPM documented in this encounterSt. Louis Children's HospitalFdkmfririk27-81-2056 History of Present illness Narrative* Magalie Kaufman [...] were sterilized with 70% isopropanol. Lot # [id number] Expiration: 01/2026 Dilution Per 100 units diluted with 1mL of 0.9% Sodium Chloride Procedure Right superior Lateral orbicularis oculi 7.5 units Right lateral orbicularis oculi 7.5 units Right inferior lateral orbicularis oculi 7.5 units Right inferior orbicularis oculi medial 2.5 units Right superior medial orbicularis oculi 2.5 units Right box loader 2.5 units Right masseter 5+10+5 units Right [...] when to seek emergent treatment. Procedure Codes 63884 Chemodenervation of facial muscle J0585 Botulinum toxin a per unit, Units: Follow Up 3 months Botox documented in this encounterSt. Louis Children's HospitalJoivcntayr08-73-8669 History of Present illness Narrative* Elie Harper [...] Peripheral neuropathy Polyneuropathy PVD (peripheral vascular disease) ([facility]) Radiculopathy, lumbosacral region Small fiber [...] mouth in the morning., Disp: , Rfl: Cevqzsxzrcv-Qxnqjdywy-Dab C-Mn (Glucosamine 1500 Complex) capsule, as directed [...] hours Elie Harper DPM documented in this encounterSt. Louis Children's HospitalFcpoejdmjd41-79-2623 Telephone encounter Note* Telephone Encounter - Elie Estrada MA - 02/19/2025 12:47 PM EDT Strange the med got removed. The Lyrica is needing refill. Added. [facility] HospitalKknvaeildl35-11-1194 Miscellaneous Notes* Telephone Encounter - Elie Estrada MA - 02/19/2025 12:47 PM EDT Strange the med got removed. The Lyrica is needing refill. Added. * Telephone Encounter - Deidre Holcomb MA - 02/19/2025 12:20 PM EDT For what medication? * Telephone Encounter - Elie Estrada MA - 02/19/2025 10:26 AM EDT OARRS Reviewed due today documented in this encounterJoseph [place]ille [address]Wwjekhjzmf60-12-0897 Telephone encounter Note* Telephone Encounter - Deidre Holcomb MA - 02/19/2025 12:20 PM EDT For what medication? [facility] HospitalNfddcdqtmc17-71-0364 Telephone encounter Note* Telephone Encounter - Elie Estrada MA - 02/19/2025 10:26 AM EDT OARRS Reviewed due today [facility] HospitalUahirflyyz87-84-4960 History of Present illness Narrative* Elie Harper [...] Fibromyalgia Hemifacial spasm History of transfusion Hypertension ([facility]) Muscle spasm Osteopenia Peripheral neuropathy Polyneuropathy PVD (peripheral vascular disease) ([facility]) Radiculopathy, lumbosacral region Small fiber [...] mouth in the morning., Disp: , Rfl: Vpgvvcevzdb-Slhkzsfkk-Ksb C-Mn (Glucosamine 1500 Complex) capsule, as directed [...] Elie Harper DPM documented in this encounterSt. Louis Children's HospitalQqzyfbstaw82-72-9735 History of Present illness Narrative* Elie Harper [...] region, without neurogenic claudication Spondylolisthesis Trigeminal neuralgia ([facility]) Medications: Current Outpatient Medications: acetaminophen [...] mouth in the morning., Disp: , Rfl: Ozotafnnjkn-Mxxjzpupr-Huc C-Mn (Glucosamine 1500 Complex) capsule, as directed [...] Elie Harper DPM documented in this encounterSt. Louis Children's HospitalEndyyvmljk60-37-5603 Telephone encounter Note* Telephone Encounter - Shelly Ford NP - 01/17/2025 2:45 PM EDT OARRs reviewed. Rx sent for S.[facility]. [facility] HospitalUpibtrmmic00-83-7101 Miscellaneous Notes* Telephone Encounter - Shelly Ford NP - 01/17/2025 2:45 PM EDT OARRs reviewed. Rx sent for S.C. * Telephone Encounter - Elie Estrada MA - 01/17/2025 9:18 AM EDT The pt calls in requesting a refill of pregabalin 12/12/2024 Continue Lyrica 25 mg by mouth twice a day. OARRS reviewed due 01/20/2025 documented in this encounterSt. Louis Children's HospitalFdbgbqmogv91-36-4908 History of Present illness Narrative* Elie Harper [...] Peripheral neuropathy Polyneuropathy PVD (peripheral vascular disease) ([facility]) Radiculopathy, lumbosacral region Small fiber [...] mouth in the morning., Disp: , Rfl: Hgyebgtpzbo-Wgyvsokvg-Vph C-Mn (Glucosamine 1500 Complex) capsule, as directed [...] Insecurity: No Food Insecurity (11/29/2023) Received from [facility], [facility] Hunger Vital Sign Worried About Running Out of Food in the Last Year: Never true Ran Out of Food in the Last Year: Never true Transportation Needs: No Transportation Needs (11/29/2023) Received from [facility], [facility] PRAPARE - Transportation Lack of Transportation (Medical): No Lack of Transportation (Non-Medical): No Physical Activity: Not on file Stress: Not on file Social Connections: Not on file Intimate Partner Violence: Not on file Housing Stability: Low Risk (11/29/2023) Received from [facility], [facility] Housing Stability Vital Sign Unable to [...] risks, alternatives, benefits, post op complications and long winder tender expectations were discussed including but not limited to: infection,bone infection,wound dehiscence hardware failure and irritation,wound dehiscence,delay union/mal union/non union of bone. RSDS,neuroma,duty limitations,DVT/PE, NE,nerve damage, scar, loss of sensation, swelling. Pt [...] DPM January 17, 2025 documented in this encounterNOWright Memorial HospitalWrxeqzdfuw37-83-8335 Telephone encounter Note* Telephone Encounter - Elie Estrada MA - 01/17/2025 9:18 AM EDT The pt calls in requesting a refill of pregabalin 12/12/2024 Continue Lyrica 25 mg by mouth twice a day. OARRS reviewed due 01/20/2025 [facility] Szdmfcicjg42-74-1558 History of Present illness Narrative* Elie Harper [...] mouth in the morning., Disp: , Rfl: Auryrpivtsh-Kvaseyuzk-Lkj C-Mn (Glucosamine 1500 Complex) capsule, as directed [...] Insecurity: No Food Insecurity (11/29/2023) Received from [facility], [facility] Hunger Vital Sign Worried About Running Out of Food in the Last Year: Never true Ran Out of Food in the Last Year: Never true Transportation Needs: No Transportation Needs (11/29/2023) Received from [facility], [facility] PRAPARE - Transportation Lack of Transportation (Medical): No Lack of Transportation (Non-Medical): No Physical Activity: Not on file Stress: Not on file Social Connections: Not on file Intimate Partner Violence: Not on file Housing Stability: Low Risk (11/29/2023) Received from [facility], [facility] Housing Stability Vital Sign Unable to [...] Patient may continue with conservative treatments including whrc-het-qbaumja anti- inflammatories and other treatments suggested today. [...] Elie Harper DPM documented in this encounterSt. Louis Children's HospitalHbkfrwomya79-47-9024 History of Present illness Narrative* Elie Harper [...] Fibromyalgia Hemifacial spasm History of transfusion Hypertension ([facility]) Muscle spasm Osteopenia Peripheral neuropathy Polyneuropathy PVD (peripheral vascular disease) ([facility]) Radiculopathy, lumbosacral region Small fiber neuropathy Spinal stenosis excluding cervical region lumbar region, without neurogenic claudication Spondylolisthesis Trigeminal neuralgia ([facility]) Medications: Current Outpatient Medications: acetaminophen [...] mouth in the morning., Disp: , Rfl: Mzfjviusoyy-Bfytcburf-Ahh C-Mn (Glucosamine 1500 Complex) capsule, as directed [...] Insecurity: No Food Insecurity (11/29/2023) Received from [facility], [facility] Hunger Vital Sign Worried About Running Out of Food in the Last Year: Never true Ran Out of Food in the Last Year: Never true Transportation Needs: No Transportation Needs (11/29/2023) Received from [facility], [facility] PRAPARE - Transportation Lack of Transportation (Medical): No Lack of Transportation (Non-Medical): No Physical Activity: Not on file Stress: Not on file Social Connections: Not on file Intimate Partner Violence: Not on file Housing Stability: Low Risk (11/29/2023) Received from [facility], [facility] Housing Stability Vital Sign Unable to [...] Elie Harper DPM documented in this encounterSt. Louis Children's HospitalArbaidruxu34-03-1825 History of Present illness Narrative* Gaby Christianson [...] Fibromyalgia Hemifacial spasm History of transfusion Hypertension ([facility]) Muscle spasm Osteopenia Peripheral neuropathy Polyneuropathy PVD [...] wrist extensors , wrist flexor , and emergency spill response technician strength 5/5. LUE strength deltoid , biceps , triceps , wrist extensors , wrist flexor , and emergency spill response technician strength 5/5. RLE strength iliopsoas, quadriceps, tibialis [...] reflex 0. LLE knee reflex 0. Coordination: Amndtf-oz-rtyv testing normal. Rapid alternating movements are normal. [...] MRI of the lumbar spine at the [facility] on 04/01/21: Posterior decompression and transpedicular [...] [facility] Advanced Neurology documented in this encounterSt. Louis Children's HospitalLgzrtagqwc44-95-1679 History of Present illness Narrative* Dania Lanier [...] days. She has been going to the [facility] and getting in the pool and doing some exercises. She finished formal PT in August and her therapist mentioned to her about maybe getting a script for water therapy. She is taking Tylenol Arthritis and tramadol. She rates her pain on a scale of 1/10. Date: 11/28/2024 11:20 AM Patient: Danyelle Haskins MR#: [id number] : 1955 Age: 69 y.o. Referring Physician: [...] CATARACT W/ IMPLANT (ECCE IOL) Bilateral 2018 [facility] TREATMENT OPEN PATELLAR FX W/ INTERNAL [...] times daily October 01, 2020 10:38am 10-01-2020 [facility] ([id number]) Docusate 100 MG capsule Take 1 capsule by mouth 2 times daily. 60 capsule 0 Doxazosin 4 MG tablet Take 1 tablet by mouth daily. Folic acid 1 MG tablet Take 1 tablet by mouth daily. Roykfdsuxru-Onoyuxtqi-Ntn C-Mn (Glucosamine 1500 Complex) capsule Take by [...] CATARACT W/ IMPLANT (ECCE IOL) Bilateral 2017 [facility] TREATMENT OPEN PATELLAR FX W/ INTERNAL [...] times daily October 01, 2020 10:38am 10-01-2020 [facility] ([id number]), Disp: , Rfl: Doxazosin 4 MG tablet, Take 1 tablet by mouth daily., Disp: , Rfl: Folic acid 1 MG tablet, Take 1 tablet by mouth daily., Disp: , Rfl: Qukrpwvqnut-Ptmmgmzqm-Dkx C-Mn (Glucosamine 1500 Complex) capsule, Take by [...] Sulfamethoxazole Weakness Trimethoprim Weakness documented in this [facility]01-09-2025 History of Present illness Narrative* Elie Harper, PK - 11/15/2024 2:40 PM EST Patient: Danyelle [...] Fibromyalgia Hemifacial spasm History of transfusion Hypertension ([facility]) Muscle spasm Osteopenia Peripheral neuropathy Polyneuropathy PVD (peripheral vascular disease) ([facility]) Radiculopathy, lumbosacral region Small fiber neuropathy Spinal stenosis excluding cervical region lumbar region, without neurogenic claudication Spondylolisthesis Trigeminal neuralgia ([facility]) Medications: Current Outpatient Medications: acetaminophen [...] mouth in the morning., Disp: , Rfl: Ovnoyhprsde-Tqceztjrq-Iyt C-Mn (Glucosamine 1500 Complex) capsule, as directed [...] Insecurity: No Food Insecurity (11/29/2023) Received from [facility], [facility] Hunger Vital Sign Worried About Running Out of Food in the Last Year: Never true Ran Out of Food in the Last Year: Never true Transportation Needs: No Transportation Needs (11/29/2023) Received from [facility], [facility] PRAPARE - Transportation Lack of Transportation (Medical): No Lack of Transportation (Non-Medical): No Physical Activity: Not on file Stress: Not on file Social Connections: Not on file Intimate Partner Violence: Not on file Housing Stability: Low Risk (11/29/2023) Received from [facility], [facility] Housing Stability Vital Sign Unable to [...] Patient may continue with conservative treatments including haej-ghm-kjuecit anti- inflammatories and other treatments suggested today. Patient may want to be s cheduled for surgical intervention in the near future. Discussed left 3rd digit PIPJ arthrodesis with K-wire and postop timeframe in detail me she may consider in the future under local anesthetic Elie Harper DPM documented in this encounterSt. Louis Children's HospitalXsaeftslwr46-70-6926 History of Present illness Narrative* Magalie Kaufman [...] were sterilized with 70% isopropanol. Lot # [id number] Expiration: 01/2027 Dilution Per 100 units diluted with 1mL of 0.9% Sodium Chloride Procedure Right superior Lateral orbicularis oculi 7.5 units Right lateral orbicularis oculi 7.5 units Right inferior lateral orbicularis oculi 7.5 units Right inferior orbicularis oculi medial 2.5 units Right superior medial orbicularis oculi 2.5 units Right box loader 2.5 units Right masseter 5+10+5 units Right [...] when to seek emergent treatment. Procedure Codes 79083 Chemodenervation of facial muscle J0585 Botulinum toxin a per unit, Units: Follow Up 3 months Botox documented in this encounterSt. Louis Children's HospitalMsmfeyiabx30-83-7702 Telephone encounter Note* Telephone Encounter - Sheryl Harley MA - 10/24/2024 9:02 AM EST Patient calls stating her lyrica RX was sent in with the incorrect directions. It needs to be 25mg in the morning and 25mg in the evening. RX has been fixed with correct directions. Can you please send. [facility] HospitalXbdqzfhdvu68-17-5231 Miscellaneous Notes* Telephone Encounter - Sheryl Harley MA - 10/24/2024 9:02 AM EST Patient calls stating her lyrica RX was sent in with the incorrect directions. It needs to be 25mg in the morning and 25mg in the evening. RX has been fixed with correct directions. Can you please send. documented in this encounterSt. Louis Children's HospitalVtygzrstzj30-72-1029 History of Present illness Narrative* REGINALD Snider - 10/23/2024 10:30 AM EST Images from the original note were not included. Reason for Appointment: EMG Patient: Danyelle Haskins : 1955 EMG Computer: [employer] Referring Physician: Dr. 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 documented in this encounterSt. Louis Children's [id number] History of Present illness Narrative* Shante Montenegro, DO - 10/15/2024 2:00 PM EST Images [...] Macular degeneration Mother Mary Haskins Cancer Father aCrmelo Haskins Cancer Sister Loretta Barrera Cataracts Sister Loretta Barrera Diabetes Sister Loretta Barrera Cataracts Sister Anh René Cancer Mother's Sister Kelsie Walker Cataracts Mother's [...] wrist extensors , wrist flexor , and emergency spill response technician strength 5/5. LUE strength deltoid , biceps , triceps , wrist extensors , wrist flexor , and emergency spill response technician strength 5/5. RLE strength iliopsoas, quadriceps, tibialis [...] reflex 0. LLE Knee reflex 0. Coordination: Fbqmdi-kd-rbbt testing normal. Rapid alternating movements are normal. Gait: Steady. Utilizing walker. Review and summary of old records: MRI of the lumbar spine at the [facility] on 04/01/21: Posterior decompression and transpedicular [...] or worsening symptoms. documented in this encounterSt. Louis Children's HospitalKiydhrxvqz14-54-6950 History of Present illness Narrative* Elie Harper DPM - 09/06/2024 2:40 PM EDT Patient: Danyelle Erickson Aries : 1955 [...] Fibromyalgia Hemifacial spasm History of transfusion Hypertension ([facility]) Muscle spasm Osteopenia Peripheral neuropathy Polyneuropathy PVD (peripheral vascular disease) ([facility]) Radiculopathy, lumbosacral region Small fiber neuropathy Spinal stenosis excluding cervical region lumbar region, without neurogenic claudication Spondylolisthesis Trigeminal neuralgia ([facility]) Medications: Current Outpatient Medications: acetaminophen [...] mouth in the morning., Disp: , Rfl: Ayhujuiewik-Fvylvcfoo-Rru C-Mn (Glucosamine 1500 Complex) capsule, as directed [...] Insecurity: No Food Insecurity (11/29/2023) Received from [facility], [facility] Hunger Vital Sign Worried About Running Out of Food in the Last Year: Never true Ran Out of Food in the Last Year: Never true Transportation Needs: No Transportation Needs (11/29/2023) Received from [facility], [facility] PRAPARE - Transportation Lack of Transportation (Medical): No Lack of Transportation (Non-Medical): No Physical Activity: Not on file Stress: Not on file Social Connections: Not on file Intimate Partner Violence: Not on file Housing Stability: Low Risk (11/29/2023) Received from [facility], [facility] Housing Stability Vital Sign Unable to [...] Elie Harper DPM documented in this encounterSt. Louis Children's HospitalZpuedblbbt11-99-6649 History of Present illness Narrative* Elie Caraballo Omer, DPM - 08/16/2024 11:40 AM EDT Patient: [...] discussion of possible surgical intervention by her biomass power plant superintendent who has since retired. She states diminished [...] Fibromyalgia Hemifacial spasm History of transfusion Hypertension ([facility]) Muscle spasm Osteopenia Peripheral neuropathy Polyneuropathy PVD (peripheral vascular disease) ([facility]) Radiculopathy, lumbosacral region Small fiber neuropathy Spinal stenosis excluding cervical region lumbar region, without neurogenic claudication Spondylolisthesis Trigeminal neuralgia ([facility]) Medications: Current Outpatient Medications: acetaminophen [...] mouth in the morning., Disp: , Rfl: Mwlcysvtpjg-Jztjijsza-Hrx C-Mn (Glucosamine 1500 Complex) capsule, as directed [...] Insecurity: No Food Insecurity (11/29/2023) Received from [facility], [facility] Hunger Vital Sign Worried About Running Out of Food in the Last Year: Never true Ran Out of Food in the Last Year: Never true Transportation Needs: No Transportation Needs (11/29/2023) Received from [facility], [facility] PRAPARE - Transportation Lack of Transportation (Medical): No Lack of Transportation (Non-Medical): No Physical Activity: Not on file Stress: Not on file Social Connections: Not on file Intimate Partner Violence: Not on file Housing Stability: Low Risk (11/29/2023) Received from [facility], [facility] Housing Stability Vital Sign Unable to [...] Elie Harper DPM documented in this encounterSt. Louis Children's HospitalJbibtxsvsm15-79-4509 History of Present illness Narrative* Elie Harper [...] discussion of possible surgical intervention by her biomass power plant superintendent who has since retired. She states diminished [...] Fibromyalgia Hemifacial spasm History of transfusion Hypertension ([facility]) Muscle spasm Osteopenia Peripheral neuropathy Polyneuropathy PVD (peripheral vascular disease) ([facility]) Radiculopathy, lumbosacral region Small fiber neuropathy Spinal stenosis excluding cervical region lumbar region, without neurogenic claudication Spondylolisthesis Trigeminal neuralgia ([facility]) Medications: Current Outpatient Medications: acetaminophen [...] mouth in the morning., Disp: , Rfl: Kdmsefhmpfy-Pfejwbuag-Qdq C-Mn (Glucosamine 1500 Complex) capsule, as directed [...] Insecurity: No Food Insecurity (11/29/2023) Received from [facility], [facility] Hunger Vital Sign Worried About Running Out of Food in the Last Year: Never true Ran Out of Food in the Last Year: Never true Transportation Needs: No Transportation Needs (11/29/2023) Received from [facility], [facility] - Transportation Lack of Transportation (Medical): No Lack of Transportation (Non-Medical): No Physical Activity: Not on file Stress: Not on file Social Connections: Not on file Intimate Partner Violence: Not on file Housing Stability: Low Risk (11/29/2023) Received from [facility], [facility] Housing Stability Vital Sign Unable to [...] Elie Harper DPM documented in this encounterSt. Louis Children's [id number] NoteRight Eye Quality was good. Scan locations included subfoveal. Progression has been stable. Findings include normal observations. Left Eye Quality was good. Scan locations included subfoveal. Progression has been stable. Findings include normal observations. Notes Good scan with normal appearanceSt. Louis Children's HospitalLlnurtwsvr45-40-3337 NoteRight Eye Reliability was good. Progression has been stable. Foveal threshold was normal. Findings include normal observations. Left Eye Reliability was good. Progression has been stable. Foveal threshold was normal. Findings include normal observations.St. [facility] Children's HospitalYukfvdsptt52-01-1508 History of Present illness Narrative* Ramon Gilmore, [...] above evaluations. This will be adjusted to [id number] when deemed necessary due to macular risk [...] laser capsulotomy, they are to notify their technical training instructor promptly if they have a significant [...] scrubs were recommended. documented in this encounterSt. Louis Children's HospitalMxqvedxcss00-98-8219 Telephone encounter Note* Telephone Encounter - Elie Harper DPM - 07/30/2024 1:[address] [facility] HospitalXctevngqdg18-19-1477 Miscellaneous Notes* Telephone Encounter - Elie Harper DPM - 07/30/2024 1:12 PM EDT done * Telephone Encounter - Taylor Ferro - 07/30/2024 1:03 PM EDT Pt called stating her ingrown toenail is still infected, asking if she can get another antibiotic? Send to [facility] in [place] please She is scheduled this in [place] documented in this encounterSt. Louis Children's HospitalGrpkbnprjt44-34-7890 Telephone encounter Note* Telephone Encounter - Taylor Ferro - 07/30/2024 1:03 PM EDT Pt called stating her ingrown toenail is still infected, asking if she can get another antibiotic? Send to [facility] in [place] please She is scheduled this in [place] [facility] HospitalZwujywkuxm72-21-0416 History of Present illness Narrative* Magalie Kaufman, - 07/26/2024 12:30 PM EDT Procedure - [...] were sterilized with 70% isopropanol. Lot # [id number] Expiration:08/2026 Dilution Per 100 units diluted with 1mL of 0.9% Sodium Chloride Procedure Right superior Lateral orbicularis oculi 7.5 units Right lateral orbicularis oculi 7.5 units Right inferior lateral orbicularis oculi 7.5 units Right inferior orbicularis oculi medial 2.5 units Right superior medial orbicularis oculi 2.5 units Right box loader 2.5 units Right masseter 5+10+5 units Right [...] when to seek emergent treatment. Procedure Codes 45583 Chemodenervation of facial muscle J0585 Botulinum toxin a per unit, Units: Follow Up 3 months Botox documented in this encounterSt. Louis Children's HospitalSretfyaxod71-03-4002 History of Present illness Narrative* Elie Harper [...] discussion of possible surgical intervention by her biomass power plant superintendent who has since retired. She states diminished [...] Fibromyalgia Hemifacial spasm History of transfusion Hypertension ([facility]) Muscle spasm Osteopenia Peripheral neuropathy Polyneuropathy PVD (peripheral vascular disease) ([facility]) Radiculopathy, lumbosacral region Small fiber neuropathy Spinal stenosis excluding cervical region lumbar region, without neurogenic claudication Spondylolisthesis Trigeminal neuralgia ([facility]) Medications: Current Outpatient Medications: acetaminophen [...] mouth in the morning., Disp: , Rfl: Zkcdntiadqd-Iaigritor-Php C-Mn (Glucosamine 1500 Complex) capsule, as directed [...] Insecurity: No Food Insecurity (11/29/2023) Received from [facility], [facility] Hunger Vital Sign Worried About Running Out of Food in the Last Year: Never true Ran Out of Food in the Last Year: Never true Transportation Needs: No Transportation Needs (11/29/2023) Received from [facility], [facility] PRAP[facility] - Transportation Lack of Transportation (Medical): No Lack of Transportation (Non-Medical): No Physical Activity: Not on file Stress: Not on file Social Connections: Not on file Intimate Partner Violence: Not on file Housing Stability: Low Risk (11/29/2023) Received from [facility], [facility] Housing Stability Vital Sign Unable to [...] Elie Harper DPM documented in this encounterSt. Louis Children's HospitalXpfhbedalk20-62-1827 History of Present illness Narrative* Gaby Christianson [...] rest and non weightbearing. She resided at [facility] from 12/02/2023 to 06/06/2024 for [...] Fibromyalgia Hemifacial spasm History of transfusion Hypertension ([facility]) Muscle spasm Osteopenia Peripheral neuropathy Polyneuropathy PVD (peripheral vascular disease) ([facility]) Radiculopathy, lumbosacral region Small fiber neuropathy Spinal stenosis excluding cervical region lumbar region, without neurogenic claudication Spondylolisthesis Trigeminal neuralgia ([facility]) Past Surgical History: Procedure Laterality Date CATARACT [...] Diabetes Sister Loretta Barrera Cataracts Sister Anh aMy Cancer Mother's Sister Kelsie Walker Cataracts Mother's [...] wrist extensors , wrist flexor , and emergency spill response technician strength 5/5. LUE strength deltoid , biceps , triceps , wrist extensors , wrist flexor , and emergency spill response technician strength 5/5. RLE strength iliopsoas, quadriceps, tibialis [...] reflex 0. LLE Knee reflex 0. Coordination: Dcfpme-an-swug testing normal. Rapid alternating movements are normal. Gait: Steady. Utilizing walker. Review and summary of old records: MRI of the lumbar spine at the [facility] on 04/01/21: Posterior decompression and transpedicular [...] [facility] documented in this encounterSt. Louis Children's HospitalGfysdonzxr29-27-3499 History of Present illness Narrative* Elie Harper, ENOCHM - 06/28/2024 2:00 PM EDT Patient: Danyelle [...] discussion of possible surgical intervention by her biomass power plant superintendent who has since retired. She states diminished [...] Fibromyalgia Hemifacial spasm History of transfusion Hypertension ([facility]) Muscle spasm Osteopenia Peripheral neuropathy Polyneuropathy PVD (peripheral vascular disease) ([facility]) Radiculopathy, lumbosacral region Small fiber neuropathy Spinal stenosis excluding cervical region lumbar region, without neurogenic claudication Spondylolisthesis Trigeminal neuralgia ([facility]) Medications: Current Outpatient Medications: acetaminophen (Tylenol 8 [...] mouth in the morning., Disp: , Rfl: Wxgimuhzpfm-Igwtxqudr-Jhb C-Mn (Glucosamine 1500 Complex) capsule, as directed [...] Insecurity: No Food Insecurity (11/29/2023) Received from [facility], [facility] Hunger Vital Sign Worried About Running Out of Food in the Last Year: Never true Ran Out of Food in the Last Year: Never true Transportation Needs: No Transportation Needs (11/29/2023) Received from [facility], [facility] PRAPARE - Transportation Lack of Transportation (Medical): No Lack of Transportation (Non-Medical): No Physical Activity: Not on file Stress: Not on file Social Connections: Not on file Intimate Partner Violence: Not on file Housing Stability: Low Risk (11/29/2023) Received from [facility], [facility] Housing Stability Vital Sign Unable to [...] Elie Harper DPM documented in this encounterSt. Louis Children's HospitalQztpkrdqdp19-20-6370 History of Present illness Narrative* Ashok Garcia ATC - 05/31/2024 9:30 AM EDT Ortho Nurse [...] 05/31/2024 9:39 AM Patient: Danyelle Haskins MR#: [id number] : 1955 Age: 68 y.o. Referring Physician: [...] CATARACT W/ IMPLANT (ECCE IOL) Bilateral 2018 [facility] TREATMENT OPEN PATELLAR FX W/ INTERNAL [...] times daily October 01, 2020 10:38am 10-01-2020 [facility] ([id number]) Docusate 100 MG capsule Take 1 capsule by mouth 2 times daily. 60 capsule 0 Doxazosin 4 MG tablet Take 1 tablet by mouth daily. Folic acid 1 MG tablet Take 1 tablet by mouth daily. Pbvwopzxhhp-Tgprmddia-Hcv C-Mn (Glucosamine 1500 Complex) capsule Take by [...] times daily October 01, 2020 10:38am 10-01-2020 [facility] ([id number]), Disp: , Rfl: Docusate 100 MG capsule, Take 1 capsule by mouth 2 times daily., Disp: 60 capsule, Rfl: 0 Doxazosin 4 MG tablet, Take 1 tablet by mouth daily., Disp: , Rfl: Folic acid 1 MG tablet, Take 1 tablet by mouth daily., Disp: , Rfl: Vlktzebtsmd-Cgopobzjx-Upt C-Mn (Glucosamine 1500 Complex) capsule, Take by [...] knee to foot Numbness feet Osteoarthritis Pneumonia 2010 RSD (reflex sympathetic dystrophy) Swelling of multiple [...] CATARACT W/ IMPLANT (ECCE IOL) Bilateral 2018 [facility] TREATMENT OPEN PATELLAR FX W/ INTERNAL [...] times daily October 01, 2020 10:38am 10-01-2020 [facility] ([id number]), Disp: , Rfl: Docusate 100 MG capsule, Take 1 capsule by mouth 2 times daily., Disp: 60 capsule, Rfl: 0 Doxazosin 4 MG tablet, Take 1 tablet by mouth daily., Disp: , Rfl: Folic acid 1 MG tablet, Take 1 tablet by mouth daily., Disp: , Rfl: Ejljnisgiwo-Pzmbupuad-Xkn C-Mn (Glucosamine 1500 Complex) capsule, Take by [...] Sulfamethoxazole Weakness Trimethoprim Weakness documented in this encounter[facility] History of Present illness Narrative* Dory Coleman - 04/19/2024 10:00 AM EDT Ortho Nurse - Established Patient Intake Room#: 2 Pt is here for B/L knee. Pt is not in any pain. No falls, or injury's. Date: 04/19/2024 10:14 AM Patient: Danyelle Haskins MR#: [id number] : 1955 Age: 68 y.o. Referring Physician: [...] CATARACT W/ IMPLANT (ECCE IOL) Bilateral 2017 [facility] TREATMENT OPEN PATELLAR FX W/ INTERNAL [...] times daily October 01, 2020 10:38am 10-01-2020 [facility] ([id number]) Docusate 100 MG capsule Take 1 capsule by mouth 2 times daily. 60 capsule 0 Doxazosin 4 MG tablet Take 1 tablet by mouth daily. Folic acid 1 MG tablet Take 1 tablet by mouth daily. Prbmujtfuec-Debavkuyl-Wii C-Mn (Glucosamine 1500 Complex) capsule Take by [...] times daily October 01, 2020 10:38am 10-01-2020 [facility] ([id number]), Disp: , Rfl: Docusate 100 MG capsule, Take 1 capsule by mouth 2 times daily., Disp: 60 capsule, Rfl: 0 Doxazosin 4 MG tablet, Take 1 tablet by mouth daily., Disp: , Rfl: Folic acid 1 MG tablet, Take 1 tablet by mouth daily., Disp: , Rfl: Ndvgddddyqs-Nxmumkcww-Qnf C-Mn (Glucosamine 1500 Complex) capsule, Take by [...] HPI: Danyelle is an established patient of [facility]. She is here today for followup. She [...] CATARACT W/ IMPLANT (ECCE IOL) Bilateral 2018 [facility] TREATMENT OPEN PATELLAR FX W/ INTERNAL [...] times daily October 01, 2020 10:38am 10-01-2020 [facility] ([id number]), Disp: , Rfl: Docusate 100 MG capsule, Take 1 capsule by mouth 2 times daily., Disp: 60 capsule, Rfl: 0 Doxazosin 4 MG tablet, Take 1 tablet by mouth daily., Disp: , Rfl: Folic acid 1 MG tablet, Take 1 tablet by mouth daily., Disp: , Rfl: Njhatpomhdl-Ighhkhjfj-Wml C-Mn (Glucosamine 1500 Complex) capsule, Take by [...] Sulfamethoxazole Weakness Trimethoprim Weakness documented [facility] this [facility]05[facility] History of Present illness Narrative* Dania Lanier [...] 03/22/2024 3:49 PM Patient: Danyelle Haskins MR#: [id number] : 1955 Age: 68 y.o. Referring Physician: [...] CATARACT W/ IMPLANT (ECCE IOL) Bilateral 2018 [facility] TREATMENT OPEN PATELLAR FX W/ INTERNAL [...] times daily October 01, 2020 10:38am 10-01-2020 [facility] ([id number]) Docusate 100 MG capsule Take 1 capsule by mouth 2 times daily. 60 capsule 0 Doxazosin 4 MG tablet Take 1 tablet by mouth daily. Folic acid 1 MG tablet Take 1 tablet by mouth daily. Dqivhifzcud-Lgdkeylak-Bpw C-Mn (Glucosamine 1500 Complex) capsule Take by [...] HPI: Danyelle is an established patient of [facility]. She is here today for followup. She [...] have reviewed the findings of the clinical it support technician and agree with their assessment. Ortho Nurse [...] 03/22/2024 3:49 PM Patient: Danyelle Haskins MR#: [id number] : 1955 Age: 68 y.o. Referring Physician: [...] CATARACT W/ IMPLANT (ECCE IOL) Bilateral 2018 [facility] TREATMENT OPEN PATELLAR FX W/ INTERNAL [...] times daily October 01, 2020 10:38am 10-01-2020 [facility] ([id number]) Docusate 100 MG capsule Take 1 capsule by mouth 2 times daily. 60 capsule 0 Doxazosin 4 MG tablet Take 1 tablet by mouth daily. Folic acid 1 MG tablet Take 1 tablet by mouth daily. Yyfbfjskeqm-Orpycunhj-Rxh C-Mn (Glucosamine 1500 Complex) capsule Take by [...] bactrim [sulfamethoxazole-trimethoprim], and levofloxacin. documented in this encounterLand[facility] [id number] History of Present illness Narrative* Allison Ariza - 02/23/2024 11:00 AM EDT Ortho Nurse - Established Patient Intake Room#: 4 Date: 02/23/2024 11:05 AM Patient: Danyelle Haskins MR#: [id number] : 1955 Age: 68 y.o. 4M L [...] CATARACT W/ IMPLANT (ECCE IOL) Bilateral 2018 [facility] TREATMENT OPEN PATELLAR FX W/ INTERNAL [...] times daily October 01, 2020 10:38am 10-01-2020 [facility] ([id number]) Docusate 100 MG capsule Take 1 capsule by mouth 2 times daily. 60 capsule 0 Doxazosin 4 MG tablet Take 1 tablet by mouth daily. Folic acid 1 MG tablet Take 1 tablet by mouth daily. Pkupxcfzlap-Ojwhbwmze-Wfj C-Mn (Glucosamine 1500 Complex) capsule Take by [...] times daily October 01, 2020 10:38am 10-01-2020 [facility] ([id number]), Disp: , Rfl: Docusate 100 MG capsule, Take 1 capsule by mouth 2 times daily., Disp: 60 capsule, Rfl: 0 Doxazosin 4 MG tablet, Take 1 tablet by mouth daily., Disp: , Rfl: Folic acid 1 MG tablet, Take 1 tablet by mouth daily., Disp: , Rfl: Emxuqjvvelg-Gbycennkp-Veh C-Mn (Glucosamine 1500 Complex) capsule, Take by [...] bactrim [sulfamethoxazole-trimethoprim], and levofloxacin. * Rajinder Green APRN-HAIRSPRING FABRICATION SUPERVISOR - 02/23/2024 11:00 AM EDT SUBJECTIVE: Danyelle is an established patient of [facility]. She is here today for followup. She [...] up in 4 weeks, sooner as needed. ([id number]) I have reviewed the findings of the clinical it support technician and agree with their assessment. Rajinder Green APRN-MARTY Ortho Nurse - Established Patient Intake Room#: 4 Date: 02/23/2024 11:05 AM Patient: Danyelle Haskins MR#: [id number] : 1955 Age: 68 y.o. 4M L TKA Pt stated she is doing ok on the L it is just laying here doing nothing, denies any pain in it.0/10 and the R is doing the same as the L 010. Pt was wearing braces on both legs [...] CATARACT W/ IMPLANT (ECCE IOL) Bilateral 2017 [facility] TREATMENT OPEN PATELLAR FX W/ INTERNAL [...] times daily October 01, 2020 10:38am 10-01-2020 [facility] ([id number]) Docusate 100 MG capsule Take 1 capsule by mouth 2 times daily. 60 capsule 0 Doxazosin 4 MG tablet Take 1 tablet by mouth daily. Folic acid 1 MG tablet Take 1 tablet by mouth daily. Crrunhdmfmw-Qpujtcdzb-Nhp C-Mn (Glucosamine 1500 Complex) capsule Take by [...] times daily October 01, 2020 10:38am 10-01-2020 [facility] ([id number]), Disp: , Rfl: Docusate 100 MG capsule, Take 1 capsule by mouth 2 times daily., Disp: 60 capsule, Rfl: 0 Doxazosin 4 MG tablet, Take 1 tablet by mouth daily., Disp: , Rfl: Folic acid 1 MG tablet, Take 1 tablet by mouth daily., Disp: , Rfl: Oleoykcbzst-Qxeafbpue-Pcs C-Mn (Glucosamine 1500 Complex) capsule, Take by [...] bactrim [sulfamethoxazole-trimethoprim], and levofloxacin. documented in this encounterAv[facility] History of Present illness Narrative* Denise Michelle - 01/12/2024 1:00 PM EST Ortho Nurse - Established Patient Intake Room#: 1 ----follow-up from call from [facility] on 12.30.23 that she fractured her patella. [...] 01/12/2024 1:03 PM Patient: Danyelle Haskins MR#: [id number] : 1955 Age: 68 y.o. Referring Physician: [...] CATARACT W/ IMPLANT (ECCE IOL) Bilateral 2018 [facility] TREATMENT OPEN PATELLAR FX W/ INTERNAL [...] times daily October 01, 2020 10:38am 10-01-2020 [facility] ([id number]) Docusate 100 MG capsule Take 1 capsule by mouth 2 times daily. 60 capsule 0 Doxazosin 4 MG tablet Take 1 tablet by mouth daily. Folic acid 1 MG tablet Take 1 tablet by mouth daily. Tfpgeiqjglh-Jvevrznio-Aef C-Mn (Glucosamine 1500 Complex) capsule Take by [...] 04/26/23. My office received a call from [facility] on 12/30/23 stating patient suffered a fall [...] have reviewed the findings of the clinical it support technician and agree with their assessment. Ortho Nurse - Established Patient Intake Room#: 1 ----follow-up from call from [facility] on 12.30.23 that she fractured her patella. [...] 01/12/2024 1:03 PM Patient: Danyelle Haskins MR#: [id number] : 1955 Age: 68 y.o. Referring Physician: [...] Laterality: Left; Surgeon: New Mcclure MD; Location: [facility] ONT OR ARTHROPLASTY KNEE TOTAL Right 04/26/2023 Laterality: Right; Surgeon: New Mcclure MD; Location: [facility] O[facility] OR REVISION ARTHROPLASTY KNEE Left 11/21/2018 Laterality: Left; Surgeon: New Mcclure MD; Location: [facility] OR EXTRACTION EXTRACAPSULAR CATARACT W/ IMPLANT (ECCE IOL) Bilateral 2018 [facility] TREATMENT OPEN PATELLAR FX W/ INTERNAL [...] times daily October 01, 2020 10:38am 10-01-2020 [facility] ([id number]) Docusate 100 MG capsule Take 1 capsule by mouth 2 times daily. 60 capsule 0 Doxazosin 4 MG tablet Take 1 tablet by mouth daily. Folic acid 1 MG tablet Take 1 tablet by mouth daily. Ltuxsunzdpf-Bdyqvwjbo-Wyo C-Mn (Glucosamine 1500 Complex) capsule Take by [...] bactrim [sulfamethoxazole-trimethoprim], and levofloxacin. [facility] History of Present illness Narrative* Shayla [...] TRANSFUSION/REACTION Yes, no adverse reaction. CULTURAL OR CONFUCIANIST BELIEFS THAT WILL AFFECT CARE no DIETARY RESTRICTIONS no CONCERNS FOR PERSONAL SAFETY no Have you been diagnosed with a concussion in the past 6 months? no Have you tested positive for COVID 19? (if pt does breathing is not back to baseline please order CXR) No Have you had your COVID vaccination? no ADVANCE DIRECTIVES Yes, on file with [facility] IF PATIENT HAS NOT BEEN DIAGNOSED WITH [...] 1010 blood pressure elevated today at [facility]. Reports have white coat syndrome. It's neverhigh like that when I check it at home. Denies headache or complaints. Reports that she will checkthe BP on arrival home. Encouraged to discuss with pcp if remains elevated, voiced understanding. Discharged ambulatory, gait steady with walker. [facility] Instructions* Patient Instructions* Everton Ball RN - 11/03/2023 10:[address] Mcclure's office will call you for your arrival time, 1-2 business days before your scheduled surgery. Please review your surgery checklist and bring your guide or booklet the day of surgery. Pre-Admission Testing Dept. [phone] Call if you have any changes in [...] are prescribed any new medicines between your [facility] appointment and your surgery date, pleasecall the [facility] office for specific instructions regarding you new medicines.* No alcohol during the 48-hours prior to your surgery. No illicit drugs during the 5 days prior to your surgery. Nothing by mouth after midnight except for water and Gatorade/powerade which can be consumed up until you leave for the hospital. DIRECTIONS: Park in the front main lot facing [address]. Enter through the front entrance [...] Yellow - take the day of surgery [place] - hold according to the doctor's instructions [...] times daily October 01, 2020 10:38am 10-01-2020 [facility] ([id number]) STOP 7 DAYS BEFORE YOUR SURGERY LAST DOSE: DATE TIME Doxazosin 4 MG tablet 4 mg, Oral, DAILY STOP TAKING 24 hours BEFORE YOUR SURGERY Last Dose: Date Time Folic acid 1 MG tablet 1,000 mcg, Oral, DAILY CONTINUE, but DO NOT take the morning of surgery. Last Dose: Date Time Yqagldbglqz-Yscpnbdtx-Kwg C-Mn (Glucosamine 1500 Complex) capsule Oral, DAILY [...] Last Dose: Date Time documented in this [facility]23 Miscellaneous Notes* Addendum Note - Everton Ball RN - 11/03/2023 10:00 AM ESTAddended by: EVERTON BALL on: 10/27/2023 10:19 AM Modules accepted: Orders * Addendum Note - Everton Ball RN - 11/03/2023 10:00 AM ESTAddended by: EVERTON BALL on: 11/01/2023 01:36 PM Modules accepted: Orders documented in this encounterAv[facility]23 Note* Addendum Note - Everton Ball RN - 11/03/2023 10:00 AM ESTAddended by: EVERTON BALL on: 10/27/2023 10:19 AM Modules accepted: Orders [facility] Note* Addendum Note - Everton Ball RN - 11/03/2023 10:00 AM ESTAddended by: EVERTON BALL on: 11/01/2023 01:36 PM Modules accepted: Orders [facility]10[facility] History of Present illness Narrative* Denise [...] 09/01/2023 1:06 PM Patient: Danyelle Haskins MR#: [id number] : 1955 Age: 68 y.o. Referring Physician: [...] CATARACT W/ IMPLANT (ECCE IOL) Bilateral 2018 [facility] TREATMENT OPEN PATELLAR FX W/ INTERNAL [...] times daily October 01, 2020 10:38am 10-01-2020 [facility] ([id number]) Doxazosin 4 MG tablet Take 1 tablet [...] today to further discuss surgicalinterventions for optimal long winder tender management. Patient is also here today for [...] a left total knee revision for optimal long winder tender management. We have discussed in great detail [...] nasal MRSA screening, scheduling an appointment for [facility] and the potential surgical date, and reviewing and signing the consentforms. I have reviewed the findings of the clinical it support technician and agree with their assessment. Ortho Nurse - Established Patient Intake Room#: 1 ----- 4 month f\u R TKR and is doing great. Also concerned about left knee and that it keeps slipping out of place. No pain with the knee just instability and would like it looked at again. Date: 09/01/2023 1:06 PM Patient: Danyelle Haskins MR#: [id number] : 1955 Age: 68 y.o. Referring Physician: [...] CATARACT W/ IMPLANT (ECCE IOL) Bilateral 2018 [facility] TREATMENT OPEN PATELLAR FX W/ INTERNAL [...] times daily October 01, 2020 10:38am 10-01-2020 [facility] ([id number]) Doxazosin 4 MG tablet Take 1 tablet [...] bactrim [sulfamethoxazole-trimethoprim], and levofloxacin. documented in this [facility] History of Present illness Narrative* Marcie Lantigua LPN - 05/19/2023 2:40 PM EDT Ortho Nurse - Established Patient Intake Room#: 5 Date: 05/19/2023 2:43 PM Patient: Danyelle Haskins MR#: [id number] : 1955 Age: 67 y.o. 3 wks [...] CATARACT W/ IMPLANT (ECCE IOL) Bilateral 2018 [facility] TREATMENT OPEN PATELLAR FX W/ INTERNAL [...] times daily October 01, 2020 10:38am 10-01-2020 [facility] ([id number]) Docusate 100 MG capsule Take 1 capsule [...] times daily October 01, 2020 10:38am 10-01-2020 [facility] ([id number]), Disp: , Rfl: Docusate 100 MG capsule, [...] bactrim [sulfamethoxazole-trimethoprim], and levofloxacin. * Rajinder Green APRN-HAIRSPRING FABRICATION SUPERVISOR - 05/19/2023 2:40 PM EDT HPI: Danyelle [...] mesh. All pertinent portions of the clinical it support technician documentation was reviewed and agree. EFREN Logan Ortho Nurse - Established Patient Intake Room#: 5 Date: 05/19/2023 2:43 PM Patient: Danyelle Haskins MR#: [id number] : 1955 Age: 67 y.o. 3 wks [...] CATARACT W/ IMPLANT (ECCE IOL) Bilateral 2018 [facility] TREATMENT OPEN PATELLAR FX W/ INTERNAL [...] times daily October 01, 2020 10:38am 10-01-2020 [facility] ([id number]) Docusate 100 MG capsule Take 1 capsule [...] times daily October 01, 2020 10:38am 10-01-2020 [facility] ([id number]), Disp: , Rfl: Docusate 100 MG capsule, [...] bactrim [sulfamethoxazole-trimethoprim], and levofloxacin. [facility] Evaluation note* Encounter Date Diagnosis Assessment [...] management and focal injections would be appropriate. Rep Other 05-10-2021 Note [id number]:127[facility] 03-12-2021 NoteCystoscopy with Urethral Dilation ? [...] if you have a fever over 100 degreesOhiohealth [facility]05-05-2021 History of Present illness Narrative* New [...] have reviewed the findings of the clinical it support technician and agree with their assessment. Ortho Nurse Established Patient Intake Room#: 3 F/U from PT, seen 11-19-20, left knee TKA 11-21-18 with extensor mechanism repair, states her pain is a 2 and she is doing much better Date: 03/11/2021 1:59 PM Patient: Danyelle Haskins MR#: [id number] : 1955 Age: 65 y.o. Referring Physician: [...] CATARACT W/ IMPLANT (ECCE IOL) Bilateral 2017 [facility] TREATMENT OPEN PATELLAR FX W/ INTERNAL [...] mouth 3 times daily as needed. Biotin 12441 MCG Tab take 2 tablets by mouth 2 times daily.. Calcium Carb-Cholecalciferol (CALCIUM 600 + D) 600-200 MG-UNIT Tab tablet Take 2.5 tablets by mouthDaily (with lunch). Diclofenac Sodium 1 % Gel gel Diclofenac Diclofenac Sodium Active 4 GM Topical Four times daily October 01, 2020 10:38am 10-01-2020 [facility] ([id number]) ferrous sulfate 325 (65 Fe) MG Tab [...] as needed. , Disp: , Rfl: Biotin 45291 MCG Tab, take 2 tablets by mouth 2 times daily.. , Disp: , Rfl: Calcium Carb-Cholecalciferol (CALCIUM 600 + D) 600-200 MG-UNIT Tab tablet, Take 2.5 tablets by mouth Daily (with lunch). , Disp: , Rfl: Diclofenac Sodium 1 % Gel gel, Diclofenac Diclofenac Sodium Active 4 GM Topical Four times daily October 01, 2020 10:38am 10-01-2020 [facility] ([id number]), Disp: , Rfl: ferrous sulfate 325 (65 [...] 03/11/2021 1:59 PM Patient: Danyelle Haskins MR#: [id number] : 1955 Age: 65 y.o. Referring Physician: [...] CATARACT W/ IMPLANT (ECCE IOL) Bilateral 2017 [facility] TREATMENT OPEN PATELLAR FX W/ INTERNAL [...] mouth 3 times daily as needed. Biotin 50730 MCG Tab take 2 tablets by mouth 2 times daily.. Calcium Carb-Cholecalciferol (CALCIUM 600 + D) 600-200 MG-UNIT Tab tablet Take 2.5 tablets by mouthDaily (with lunch). Diclofenac Sodium 1 % Gel gel Diclofenac Diclofenac Sodium Active 4 GM Topical Four times daily October 01, 2020 10:38am 10-01-2020 [facility] ([id number]) ferrous sulfate 325 (65 Fe) MG Tab [...] as needed. , Disp: , Rfl: Biotin 24542 MCG Tab, take 2 tablets by mouth 2 times daily.. , Disp: , Rfl: Calcium Carb-Cholecalciferol (CALCIUM 600 + D) 600-200 MG-UNIT Tab tablet, Take 2.5 tablets by mouth Daily (with lunch). , Disp: , Rfl: Diclofenac Sodium 1 % Gel gel, Diclofenac Diclofenac Sodium Active 4 GM Topical Four times daily October 01, 2020 10:38am 10-01-2020 [facility] ([id number]), Disp: , Rfl: ferrous sulfate 325 (65 [...] oxcarbazepine; and bactrim [sulfamethoxazole-trimethoprim]. [facility]* Diagnosis Left knee pain, unspecified chronicity- Primary Right knee pain, unspecified chronicity [facility]* Diagnosis Hx of total knee arthroplasty, right- Primary [facility] noteNo assessment information availableReg[facility] Work Phone: Evaluation note* Diagnosis Hx of total knee arthroplasty, right- Primary Hx of total knee arthroplasty, left [facility]* Diagnosis Preop testing- Primary Preoperative examination, unspecified Abnormal finding of blood chemistry, unspecified Abnormal coagulation profile Failed total left knee replacement, initial encounter [facility]* Diagnosis Pain in right knee Pain in joint, lower leg [facility]* Diagnosis Right knee pain, unspecified chronicity- Primary [facility]* Diagnosis Hx of total knee arthroplasty, left- Primary [facility] Diagnosis Pain in both knees, unspecified chronicity- Primary [facility]* Diagnosis Pain in both knees, unspecified chronicity- Primary documented in this encounter [facility]* Diagnosis Pain in both knees, unspecified chronicity- Primary documented in this encounter [facility]* Diagnosis Abscess of toe, [...] of skin sensation documented in this encounter [facility]* Diagnosis Paresthesias- Primary Disturbance of skin sensation Blepharospasm Spinal stenosis of lumbar region, unspecified whether neurogenic claudication present documented in this encounter [facility] HealthcareEvaluation note* Diagnosis Paresthesias Disturbance of skin sensation Spinal stenosis of lumbar region, unspecified whether neurogenic claudication present documented in this encounter [facility] HealthcareEvaluation note* Diagnosis Carpal tunnel syndrome on both sides- Primary Carpal tunnel syndrome Paresthesias Disturbance of skin sensation documented in this encounter [facility] HealthcareEvaluation note* Diagnosis Acquired deformity of left toe- Primary Onychomycosis Dermatophytosis of nail Toe pain, bilateral documented in this encounter [facility]Evaluation note* Diagnosis Spinal stenosis of lumbar region, unspecified whether neurogenic claudication present- Primary Paresthesias Disturbance of skin sensation documented in this encounter [facility] HealthcareEvaluation note* Diagnosis Onychocryptosis- Primary Ingrowing nail Toe pain, right Pain in soft tissues of limb Abscess of toe, right documented in this encounter [facility] HealthcareEvaluation note* Diagnosis 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 documented in this encounter [facility] HealthcareEvaluation note* Diagnosis Abscess of toe, right [...] knee arthroplasty, right documented [facility]* Diagnosis Spinal stenosis of lumbar region, [...] Primary Other polyneuropathy documented in this encounter [facility] HealthcareEvaluation note* Diagnosis Acquired deformity of left toe- Primary Other polyneuropathy documented in this [facility] [...] 9:33amSpinal stenosis of lumbar regionchronicJune 2024 9:33am [facility] Work Phone: Evaluation note* Diagnosis Intermediate stage nonexudative age-related macular degeneration of both eyes- Primary Long-term use of hydroxychloroquine documented in this encounter [facility]Evaluation note* Diagnosis Pain due to onychomycosis of toenails of both feet- Primary documented in this encounter [facility] HealthcareEvaluation note* Diagnosis Other polyneuropathy- Primary Pain due to onychomycosis of toenails of both feet documented in this encounter [facility] HealthcareHistory general Narrative - Reported* Type Description Date Medical History connective tissue disease Medical HistoryArthritisMedical Historyspinal compressionSurgical Historyback surgerySurgical Historyganglion cystSurgical HistorytonsillectomySurgical HistoryhysterectomySurgical Historytendon repairSurgical Historywrist surgery Surgical Historycataracts, bilaterallySurgical HistoryAbdominal Ablation Hospitalization Historysee surgical Rep Other reason for referral (narrative)* Consultation (Routine) - Patient to ArrangeSpecialtyDiagnoses / ProceduresReferred By ContactReferred To ContactPhysical Therapy Diagnoses Pain in both knees, unspecified chronicity New Mcclure MD [address] [place] [address] Referral IDStatusReasonStart DateExpiration DateVisits RequestedVisits [id number] to Arrange/ Scheduling Instructions . T [facility] for referral (narrative)No reason for referral information availableMer[facility] Health [facility] Work Phone: Summary Purpose Family History No Family History Records Found Relationship Condition Age at Onset Recorded Date/T kayode Not Specified Diabetes mellitus Unknown ArthritisUnknownFamily history of cataractsUnknownHypertensionUnknownfather LiposarcomaUnknownsisterMalignant neoplasm of thyroid glandUnknownfamily member Pituitary neoplasmUnknown Relationship Condition Age at Onset Recorded Date/T kayode Not Specified Diabetes mellitus Unknown ArthritisUnknownFamily history of cataractsUnknownHypertensionUnknownfather LiposarcomaUnknownsisterMalignant neoplasm of thyroid glandUnknownfamily member Pituitary neoplasmUnknownbrotherDeceasedUnknownfatherDeceasedUnknown Advance Directives No Advanced Directives Records FoundDocuments on File TypeDate RecordedPatient RepresentativeExplanationAdvance Directives/Living Will 11/21/2018 8:22 AMAdvance Directives/Living Will11/21/2018 8:26 AMCode StatusDate ActivatedDate InactivatedCommentsFull Code11/21/2018 2:46 PMFull Code07/18/2017 4:04 PM07/21/2017 7:25 PMTypeDate RecordedPatient RepresentativeExplanation Advance Directives/Living Will11/21/2018 8:22 AMAdvance Directives/Living Will 11/21/2018 8:26 AMCode StatusDate ActivatedDate InactivatedCommentsFull Code 11/21/2018 2:46 PMFull Code07/18/2017 4:04 PM07/21/2017 7:25 PMCode StatusDate ActivatedDate InactivatedCommentsFull Code11/21/2018 2:46 PMCode StatusDate ActivatedDate InactivatedCommentsFull Code07/18/2017 4:04 PM07/21/2017 7:25 PMCode StatusDate ActivatedDate InactivatedCommentsFull Code04/26/2023 2:32 PMCode StatusDate ActivatedDate InactivatedCommentsFull Code11/21/2018 2:46 PM04/26/2023 2:32 PMFull Code07/18/2017 4:04 PM07/21/2017 7:25 PMCode StatusDate ActivatedDate InactivatedCommentsFull Code11/29/2023 5:14 [...] Pre-op exam Procedures ECG New Mcclure MD [address] [place] [address] StatusReasonSpecialtyDiagnoses / ProceduresReferred By ContactReferred To ContactNew Request Procedures ACTIVITY TOLERATED Rajinder Green APRN-CNP [address] [place] [address] StatusReasonSpecialtyDiagnoses / ProceduresReferred By ContactReferred To Contact Rajinder Green APRN-CNP [address] [place], [place] [id number] StatusReasonSpecialtyDiagnoses / ProceduresReferred By ContactReferred To ContactNew Request Diagnoses Hx of total knee arthroplasty, left Procedures XR KNEE LEFT 2 VIEWS XR KNEE LEFT 3 VIEWS Rajinder Green APRN-CNP [address] [place], [place] [id number] StatusReasonSpecialtyDiagnoses / ProceduresReferred By ContactReferred To ContactNew RequestPhysical Therapy Diagnoses History of total knee arthroplasty, left Right hip pain New Mcclure MD [address] [place], [place] [id number] Scheduling Instructions . StatusReasonSpecialtyDiagnoses / ProceduresReferred By ContactReferred To ContactSchedule Outgoing - Transfer of CarePhysical Therapy Diagnoses History of total knee arthroplasty, left New Mcclure MD [address] [place], [place] [id number] StatusReasonSpecialtyDiagnoses / ProceduresReferred By ContactReferred To ContactNew Request Diagnoses Right hip pain Procedures XR HIP WITH PELVIS RIGHT New Mcclure MD [address] [place], [place] [address] StatusReasonSpecialtyDiagnoses / ProceduresReferred By ContactReferred To ContactNew RequestSports Ortho and Primary Care Sports Diagnoses Right hip pain New Mcclure MD [address] [place], [place] [address] StatusReasonSpecialtyDiagnoses / ProceduresReferred By ContactReferred To ContactNew Request Diagnoses Right knee pain, unspecified chronicity Procedures LARGE JOINT INJECTION: R knee New Mcclure MD [address] [place], [place] [address] StatusReasonSpecialtyDiagnoses / ProceduresReferred By ContactReferred To ContactNew Request Diagnoses Left knee pain, unspecified chronicity Procedures XR KNEE LEFT 2 VIEWS XR KNEE LEFT 3 VIEWS New Mcclure MD [address] [place], [place] [address] StatusReasonSpecialtyDiagnoses / ProceduresReferred By ContactReferred To ContactPending Review Diagnoses History of total knee arthroplasty, left Procedures XR KNEE LEFT 3 VIEWS New Mcclure MD [address] [place], [place] [address] StatusReasonSpecialtyDiagnoses / ProceduresReferred By ContactReferred To ContactPatient to ArrangePhysical Therapy Diagnoses Pain in prosthetic joint, initial encounter New Mcclure MD [address] [place], [place] [address] StatusReasonSpecialtyDiagnoses / ProceduresReferred By ContactReferred To ContactNew Request Diagnoses Hx of total knee arthroplasty, left Procedures XR KNEE LEFT 3 VIEWS New Mcclure MD [address] [place], [place] [address] StatusReasonSpecialtyDiagnoses / ProceduresReferred By ContactReferred To ContactPatient to ArrangePhysical Therapy Diagnoses History of total knee arthroplasty, left New Mcclure MD [address] [place], [place] [address] SpecialtyDiagnoses / ProceduresReferred By ContactReferred To Contact Diagnoses Hx of total knee arthroplasty, right Procedures XR KNEE RIGHT 3 VIEWS Rajinder Green, DECORATING INSTRUCTOR-HAIRSPRING FABRICATION SUPERVISOR [address] [place], [place] [address] Referral IDStatusReasonStart DateExpiration DateVisits RequestedVisits [id number] [id number] / Procedures Referred By ContactReferred To Contact Diagnoses Hx of total knee arthroplasty, right Procedures XR BONE LENGTH STUDY New Mcclure MD [address] [place], [place] [address] Referral IDStatusReasonStart DateExpiration DateVisits RequestedVisits [id number] [id number] / ProceduresReferred By ContactReferred To Contact Diagnoses Hx of total knee arthroplasty, right Procedures XR KNEE RIGHT 3 VIEWS New Mcclure MD [address] [place], [place] [address] Referral IDStatusReasonStart DateExpiration DateVisits RequestedVisits [id number] / ProceduresReferred By ContactReferred To Contact Diagnoses Hx of total knee arthroplasty, left Procedures XR KNEE LEFT 3 VIEWS New Mcclure MD [address] [place] [address] Referral IDStatusReasonStart DateExpiration DateVisits RequestedVisits [id number] / ProceduresReferred By ContactReferred To Contact Diagnoses Preop testing Procedures PREPARE TO TRANSFUSE RED BLOOD CELLS New Mcclure MD [address] [place], [place] [address] Referral IDStatusReasonStart DateExpiration DateVisits RequestedVisits [id number] [id number] / ProceduresReferred By ContactReferred To Contact Diagnoses Preop testing Procedures ECG New Mcclure MD [address] [place], [place] [address] Referral IDStatusReasonStart DateExpiration DateVisits RequestedVisits [id number] [id number] / ProceduresReferred By ContactReferred To Contact Diagnoses Right knee pain, unspecified chronicity Procedures XR KNEE RIGHT 3 VIEWS New Mcclure MD [address] [place] [address] Referral IDStatusReasonStart DateExpiration DateVisits RequestedVisits [id number] Request/[id number] / Procedures Referred By ContactReferred To Contact Diagnoses Hx of total knee arthroplasty, left Procedures XR KNEE LEFT 1-2 VIEWS XR KNEE LEFT 3 VIEWS Rajinder Green, NIURKA-MARTY [address] [place] [address] Referral IDStatusReasonStart DateExpiration DateVisits RequestedVisits [id number] [id number] / Procedures Referred By ContactReferred To Contact Diagnoses Hx of total knee arthroplasty, left Procedures XR BONE LENGTH STUDY Rajinder Green APRN-MARTY [address] [place] [address] Referral IDStatusReasonStart DateExpiration DateVisits RequestedVisits [id number] Request/[id number] / Procedures Referred By ContactReferred To Contact Diagnoses Polyneuropathy Spinal stenosis of lumbar region, unspecified whether neurogenic claudication present Degenerative disc disease, lumbar Gaby Christianson, HARPAL [address] [facility] [address] [place] [phone] Referral IDStatusReasonStart DateExpiration DateVisits RequestedVisits [id number] Review/[id number] / ProceduresReferred By ContactReferred To ContactPhysical Therapy Diagnoses Hx of total knee arthroplasty, left Hx of total knee arthroplasty, right New Mcclure MD [address] [place] [address] Referral IDStatusReasonStart DateExpiration DateVisits RequestedVisits [id number] Request/[id number] / Procedures Referred By ContactReferred To Contact Diagnoses Hx of total knee arthroplasty, right Procedures XR KNEE RIGHT 1-2 VIEWS XR KNEE RIGHT 3 VIEWS New Mcclure MD [address] [place] [address] Referral IDStatusReasonStart DateExpiration DateVisits RequestedVisits [id number] [id number] IDStatusReasonStart DateExpiration DateVisits RequestedVisits [id number] Request11/26/2024 Instructions * Patient Instructions - Everton Ball RN - 10/13/2018 12:21 PM EST Formatting of this note may be different from the original. Genoveva from Dr Mcclure's office will call you for your arrival time, 1-2 business days before your scheduled surgery. Please review your surgery checklist and bring your Guide or binder the day of surgery. Pre-Admission Testing Dept. [phone] Call if you have any changes in [...] of surgery LAST DOSE: DATE TIME Biotin 11339 MCG Tab take 2 tablets by mouth [...] LAST DOSE: DATE TIME Hydroxychloroquine Sulfate (HYDROXYCHLOROQUINE, [id number],) 200 MG Tab Take 200 mg by [...] Patient reports feeling ready to go to [facility] later today Cognitive Status Examination Orientation Status [...] therapy intervention this a.m. Patient stood to [facility] and ambulated in hallway x 60 [...] reach Communication Patient to [facility] today Transfer Skill: Sit To Stand, Rehab Eval [place] (Sit-Stand Transfers) supervision Physical Assist/Nonphysical Assist: Sit/Stand 1 person assist Weight-Bearing Restrictions: Sit/Stand toe touch weight-bearing Assistive Device For Transfer: Sit/Stand 2 wheeled walker Gait Skills, PT Eval Level of [place]: Gait stand-by assist Weight-Bearing Restrictions: Gait toe touch weight-bearing Assistive Device For Transfer: Gait 2 wheeled walker Gait Distance other (see comments) (60 ft) Gait Analysis, PT Eval Gait Pattern Used swing-to gait Stair Negotiation Level of [place]: Stair Negotiation unable to perform Clinical Impression [...] training. Maintain frequency yes * Maryam Zapata [facility],PharmD - 11/24/2018 1:26 PM EST Apixaban (Eliquis) Patient Education / Transition of Care PATIENT: Danyelle Haskins Room/Bed: [facility]/ Apixaban (Eliquis) Education Patient was provided with Apixaban (Eliquis) Education Sheet. Discussed in detail with patient about what Apixaban is, to take as directed, what to do if a dose is missed, and emphasized that compliance is extremely important to avoid stroke or any other serious event. Additional education was provided regarding side effects that should be reported to their physicianor health healthcare market consultant as soon as possible. I also advised the patient to provide an updated medication list to all health health care liaison as certain medications can interact with apixaban. Patient verbally acknowledged an understanding of the information provided. Please contact pharmacyif there are any questions. Signed: Maryam Zapata [facility],PharmD, [facility] Phone: [phone] Date/Time: 11/24/2018 1:26 PM * Krystal Bravo, [...] UE exercises Therapist Information License # [id number] * Tanvi Hernandez, HAIRSPRING FABRICATION SUPERVISOR - 11/23/2018 1:43 PM EST Formatting of this note may be different from the original. DAILY PROGRESS NOTE Date of Evaluation: 11/23/18 1:[address] [facility] LOS: 2 days SUBJECTIVE: Patient seen [...] S/p left TKA POD#2 PT OT social science research assistant discharge planning DVT prophylaxis Eliquis PT OT SS for dc planning- will likely discharge next 24-48 hours to [facility] GI/DVT prophylaxis with protonix and SCD and [...] assessment and plan and agree with the HAIRSPRING FABRICATION SUPERVISOR findings and plan of care as documented. [...] like knee brace had slid down leg. CERAMIC SPRAYER began with readjusting knee brace in proper [...] Transfer Skill: Sit To Stand, Rehab Eval [place] (Sit-Stand Transfers) contact guard Physical Assist/Nonphysical Assist: Sit/Stand 1 person assist Weight-Bearing Restrictions: Sit/Stand toe touch weight-bearing Assistive Device For Transfer: Sit/Stand 2 wheeled walker Gait Skills, PT Eval Level of [place]: Gait contact guard Weight-Bearing Restrictions: Gait toe [...] device on. Impression: status post TKA ext [facility] recon PLAN: 1. PT/OT 2. DVT prophylaxis 3. Discharge planning * Demarcus Hutchison, CERAMIC SPRAYER - 11/22/2018 4:07 PM EST Formatting of [...] Transfer Skill: Sit To Stand, Rehab Eval [place] (Sit-Stand Transfers) contact guard Physical Assist/Nonphysical Assist: Sit/Stand 1 person assist Weight-Bearing Restrictions: Sit/Stand toe touch weight-bearing (pt using NWB on L LE) Assistive Device For Transfer: Sit/Stand 2 wheeled walker Gait Skills, PT Eval Level of [place]: Gait contact guard Weight-Bearing Restrictions: Gait toe touch weight-bearing (Pt using NWB on L LE) Assistive Device For Transfer: Gait 2 wheeled walker Gait Distance (20ft, 20ft) Gait Analysis, PT Eval Gait Pattern Used swing-to gait Plan Plan for next visit Plan to continue with strengthening and transfers/gait Maintain frequency yes * Aurora Arroyo, STEAMING MACHINE OPERATOR - 11/22/2018 12:52 PM EST Call received from [facility] stating they can take patient anytime on Tuesday afternoon or after. * Demarcus Hutchison, CERAMIC SPRAYER - 11/22/2018 11:56 AM EST Formatting of [...] Transfer Skill: Sit To Stand, Rehab Eval [place] (Sit-Stand Transfers) contact guard Physical Assist/Nonphysical Assist: Sit/Stand 1 person assist Weight-Bearing Restrictions: Sit/Stand toe touch weight-bearing (NWB on L LE) Assistive Device For Transfer: Sit/Stand 2 wheeled walker Gait Skills, PT Eval Level of [place]: Gait contact guard Weight-Bearing Restrictions: Gait toe touch weight-bearing (pt using NWB on L LE) Assistive Device For Transfer: Gait 2 wheeled walker Gait Distance 25 feet Gait Analysis, PT Eval Gait Pattern Used swing-to gait Plan Plan for next visit Plan to continue with strengthening, transfers/gait, and practice car transfer Maintain frequency yes * Jacey Valdez, DECORATING INSTRUCTOR-HAIRSPRING FABRICATION SUPERVISOR - 11/22/2018 10:52 AM EST Formatting of this note may be different from the original. DAILY PROGRESS NOTE Date of Evaluation: 11/22/18 10:[address] [facility] LOS: 1 day SUBJECTIVE: Patient seen [...] at 11/22/18 1053 Last data filed at 01/16/19 0910 Gross per 24 hour Intake 1592 [...] S/p left TKA POD#1 PT OT social science research assistant discharge planning DVT prophylaxis Eliquis PT OT SS for dc planning GI/DVT prophylaxis with protonix and SCD and Eliquis Associated attestation - Brady Lozoya MD - 11/22/2018 4:50 PM EST Danyelle Haskins was personally seen and examined. I agree with the examination, assessment, and plan as described below by the ENVIRONMENTAL SERVICES LEAD with the following additions/exceptions: Feeling well today. [...] with post operative care. * Rajinder Green, NIURKA-HAIRSPRING FABRICATION SUPERVISOR - 11/22/2018 8:52 AM EST Formatting of [...] states that she is currently employed at [employer] in [place]. She stated that prior to the surgery she was completely independent and able to cook, clean and drive. Patient states that her goal upon discharge it to go to an extended care facility to get more therapy for her knee and regain her strength. Patient stated that she wanted to go to the [facility] as it is close to her home. Patient reviewed and signed the Area Nursing facility list for [facility]. CM to make referral. CM to follow. [...] 0 Equipment Available wheeled walker;shower chair;elevated toilet seat;gas engine operator;sock-aid;long-handled shoe horn;hand held shower hose Cognitive Status Examination Orientation Status (Cognition) oriented x 4 Level of Consciousness alert Able to Follow Commands (Communication) WNL Personal Safety and Judgment intact Short Term Memory intact Manager [employer]iances Memory intact Vision (check all that apply) Vision prescription glasses Sensory Examination Sensory Examination WFL (numbness in bilateral LE at baseline) Range of Motion (ROM) Range of Motion Examination bilateral upper extremity ROM was WFL Bed Mobility Skill: Supine to Sit, Rehab Eval Level of [place]: Supine/Sit stand-by assist Physical Assist/Nonphysical Assist: Supine/Sit 1 person assist Transfer Skill: Sit to Stand, Rehab Eval Level of [place]: Sit/Stand contact guard Physical Assist/Nonphysical Assist: Sit/Stand 1 person assist Weight-Bearing Restrictions: Sit/Stand toe touch weight-bearing Assistive Device for Transfer: Sit/Stand wheeled walker Upper Body Dressing Level of [place] (set up) Lower Body Dressing Level of [place] moderate assist (50% patients effort) Physical Assist/Nonphysical Assist 1 person assist Assistive Device gas engine operator General Therapy Interventions Planned Therapy Interventions [...] Impairment in Daily Activity - [facility] Daily Activity Inpatient Short Form Putting [...] yes Goals Goals For Discharge discharge to [facility] Discussed risk / benefits with patient Therapist Recommendations At Discharge Recommendations OT Services recommended at Discharge Plan Plan Narrative continue with bathing, dressing and transfer training Therapist Information License # [id number] 1. Pt will complete LB dressing min [...] may be different from the original. 11/21/18 2430 General Information RN Approved Intervention as tolerated [...] Supine to Sit, Rehab Eval Level of [place]: Supine/Sit stand-by assist Transfer Skill: Sit To Stand, Rehab Eval [place] (Sit-Stand Transfers) minimum assist (75% patient effort) Weight-Bearing Restrictions: Sit/Stand toe touch weight-bearing Assistive Device For Transfer: Sit/Stand 2 wheeled walker Gait Skills, PT Eval Level of [place]: Gait contact guard Weight-Bearing Restrictions: Gait toe [...] swelling, and pt reports understanding. [facility] Basic Mobility Inpatient Short Form Turning over in bed 4 - No Assistance Sitting/standing from chair 4 - No Assistance Moving from lying on back to sitting 4 - No Assistance Moving to and from bed to chair 4 - No Assistance Walk in hospital room 4 - No Assistance Climbing 3-5 steps with a railing 4 - No Assistance [facility] Mobility Raw Score 24 [facility] Mobility Functional Limitation/Modifier 0.00% Prior Functional Impairment in Basic Mobility - CH CURRENT [facility] Basic Mobility Inpatient Short Form Turning [...] 2 - A Lot of Assistance CURRENT [facility] Mobility Raw Score 17 CURRENT [facility] Mobility Functional Limitation/Modifier 50.57% Currently Impaired in Basic Mobility - CK Projected [facility] Mobility Raw Score 20 Projected [facility] Mobility Functional Limitation/Modifier 35.83% Projected Functional [...] as able. Therapist Information License # [id number] PT Goals: 1. Pt will demonstrate understanding [...] ILLNESS: Danyelle is an established patient of [facility]. She is here today for followup. She [...] per her previous regimen prescribed by her rf test engineer. I will leave this up to the house physician at [facility], where she is residing today. [...] and concerns were addressed to her satisfaction. (DOC:[id number]) Procedures I have reviewed the findings of the clinical it support technician and agree with their assessment. EFREN Logan Ortho Nurse Established Patient Intake Room#: 4 Date: 12/14/2018 2:47 PM Patient: Danyelle Haskins MR#: [id number] : 1955 Age: 63 y.o. 3 wk [...] CATARACT W/ IMPLANT (ECCE IOL) Bilateral 2017 [facility] TREATMENT OPEN PATELLAR FX W/ INTERNAL [...] mouth 3 times daily as needed. Biotin 05245 MCG Tab take 2 tablets by mouth [...] as needed. , Disp: , Rfl: Biotin 32500 MCG Tab, take 2 tablets by mouth [...] 12/14/2018 2:47 PM Patient: Danyelle Haskins MR#: [id number] : 1955 Age: 63 y.o. 3 wk [...] CATARACT W/ IMPLANT (ECCE IOL) Bilateral 2018 [facility] TREATMENT OPEN PATELLAR FX W/ INTERNAL [...] mouth 3 times daily as needed. Biotin 77346 MCG Tab take 2 tablets by mouth [...] as needed. , Disp: , Rfl: Biotin 05826 MCG Tab, take 2 tablets by mouth [...] have reviewed the findings of the clinical it support technician and agree with their assessment. New Mcclure MD Ortho Nurse Established Patient Intake Room#: 3 Date: 03/01/2019 2:16 PM Patient: Danyelle Haskins MR#: [id number] : 1955 Age: 63 y.o. 6wk F/U [...] CATARACT W/ IMPLANT (ECCE IOL) Bilateral 2017 [facility] TREATMENT OPEN PATELLAR FX W/ INTERNAL [...] mouth 3 times daily as needed. Biotin 49447 MCG Tab take 2 tablets by mouth [...] as needed. , Disp: , Rfl: Biotin 70338 MCG Tab, take 2 tablets by mouth [...] 03/01/2019 2:16 PM Patient: Danyelle Haskins MR#: [id number] : 1955 Age: 63 y.o. 6wk F/U [...] CATARACT W/ IMPLANT (ECCE IOL) Bilateral 2018 [facility] TREATMENT OPEN PATELLAR FX W/ INTERNAL [...] mouth 3 times daily as needed. Biotin 97916 MCG Tab take 2 tablets by mouth [...] as needed. , Disp: , Rfl: Biotin 48872 MCG Tab, take 2 tablets by mouth [...] have reviewed the findings of the clinical it support technician and agree with their assessment. New Mcclure MD Ortho Nurse Established Patient Intake Room#: 4 F/U Right hip, feeling better, pain of 5-6 when doing steps, done with PT; Left TKA 11-21-, last PT was yesterday, pain of 1-2 Date: 04/18/2019 4:31 PM Patient: Danyelle Haskins MR#: [id number] : 1955 Age: 63 y.o. Referring Physician: [...] CATARACT W/ IMPLANT (ECCE IOL) Bilateral 2017 [facility] TREATMENT OPEN PATELLAR FX W/ INTERNAL [...] mouth 3 times daily as needed. Biotin 54895 MCG Tab take 2 tablets by mouth [...] as needed. , Disp: , Rfl: Biotin 37059 MCG Tab, take 2 tablets by mouth [...] 04/18/2019 4:31 PM Patient: Danyelle Haskins MR#: [id number] : 1955 Age: 63 y.o. Referring Physician: [...] CATARACT W/ IMPLANT (ECCE IOL) Bilateral 2017 [facility] TREATMENT OPEN PATELLAR FX W/ INTERNAL [...] mouth 3 times daily as needed. Biotin 16026 MCG Tab take 2 tablets by mouth [...] as needed. , Disp: , Rfl: Biotin 15872 MCG Tab, take 2 tablets by mouth [...] perhaps not, though she is closer [facility] pen[facility]. She has had previous extensor mechanism reconstruction [...] of the right knee, which demonstrate knee, [id number] arthritis of the lateral compartment, and multiple [...] she like to proceed with surgical revision. (DOC:[id number]) LARGE JOINT INJECTION: R knee Date/Time: 11/21/2019 [...] have reviewed the findings of the clinical it support technician and agree with their assessment. New Mcclure MD Ortho Nurse Established Patient Intake Room#: 3---1 year post-op check for left TKA . She has been doing well. Date: 11/21/2019 1:38 PM Patient: Danyelle Haskins MR#: [id number] : 1955 Age: 64 y.o. Referring Physician: [...] CATARACT W/ IMPLANT (ECCE IOL) Bilateral 2018 [facility] TREATMENT OPEN PATELLAR FX W/ INTERNAL [...] mouth 3 times daily as needed. Biotin 96374 MCG Tab take 2 tablets by mouth [...] 11/21/2019 1:38 PM Patient: Danyelle Haskins MR#: [id number] : 1955 Age: 64 y.o. Referring Physician: Nwe Mcclure MD Insurance: Payor: MEDICARE / Plan: [...] CATARACT W/ IMPLANT (ECCE IOL) Bilateral 2017 [facility] TREATMENT OPEN PATELLAR FX W/ INTERNAL [...] mouth 3 times daily as needed. Biotin 51598 MCG Tab take 2 tablets by mouth [...] have reviewed the findings of the clinical it support technician and agree with their assessment. Ortho Nurse Established Patient Intake Room#: 2 2 year Left TKA 11-21-18, pain of 2, cannot straighten her leg and it varinder, Amoxicillin was ordered today Date: 11/19/2020 2:31 PM Patient: Danyelle Haskins MR#: [id number] : 1955 Age: 65 y.o. Referring Physician: [...] CATARACT W/ IMPLANT (ECCE IOL) Bilateral 2018 [facility] TREATMENT OPEN PATELLAR FX W/ INTERNAL [...] Take 500 mg by mouth daily. Biotin 09597 MCG Tab take 2 tablets by mouth 2 times daily.. Calcium Carb-Cholecalciferol (CALCIUM 600 + D) 600-200 MG-UNIT Tab tablet Take 2.5 tablets by mouthDaily (with lunch). Diclofenac Sodium 1 % Gel gel Diclofenac Diclofenac Sodium Active 4 GM Topical Four times daily October 01, 2020 10:38am 10-01-2020 [facility] ([id number]) ferrous sulfate 325 (65 Fe) MG Tab [...] by mouth daily., Disp: , Rfl: Biotin 60129 MCG Tab, take 2 tablets by mouth 2 times daily.. , Disp: , Rfl: Calcium Carb-Cholecalciferol (CALCIUM 600 + D) 600-200 MG-UNIT Tab tablet, Take 2.5 tablets by mouth Daily (with lunch). , Disp: , Rfl: Diclofenac Sodium 1 % Gel gel, Diclofenac Diclofenac Sodium Active 4 GM Topical Four times daily October 01, 2020 10:38am 10-01-2020 [facility] ([id number]), Disp: , Rfl: ferrous sulfate 325 (65 [...] 11/19/2020 2:31 PM Patient: Danyelle Haskins MR#: [id number] : 1955 Age: 65 y.o. Referring Physician: [...] CATARACT W/ IMPLANT (ECCE IOL) Bilateral 2018 [facility] TREATMENT OPEN PATELLAR FX W/ INTERNAL [...] Take 500 mg by mouth daily. Biotin 92185 MCG Tab take 2 tablets by mouth 2 times daily.. Calcium Carb-Cholecalciferol (CALCIUM 600 + D) 600-200 MG-UNIT Tab tablet Take 2.5 tablets by mouthDaily (with lunch). Diclofenac Sodium 1 % Gel gel Diclofenac Diclofenac Sodium Active 4 GM Topical Four times daily October 01, 2020 10:38am 10-01-2020 [facility] ([id number]) ferrous sulfate 325 (65 Fe) MG Tab [...] by mouth daily., Disp: , Rfl: Biotin 38405 MCG Tab, take 2 tablets by mouth 2 times daily.. , Disp: , Rfl: Calcium Carb-Cholecalciferol (CALCIUM 600 + D) 600-200 MG-UNIT Tab tablet, Take 2.5 tablets by mouth Daily (with lunch). , Disp: , Rfl: Diclofenac Sodium 1 % Gel gel, Diclofenac Diclofenac Sodium Active 4 GM Topical Four times daily October 01, 2020 10:38am 10-01-2020 [facility] ([id number]), Disp: , Rfl: ferrous sulfate 325 (65 [...] have reviewed the findings of the clinical it support technician and agree with their assessment. New Mcclrue MD Ortho Nurse Established Patient Intake Room#: 3 6 week F/U left knee ext mechanism repair, no C/O pain Date: 01/03/2019 3:26 PM Patient: Danyelle Haskins MR#: [id number] : 1955 Age: 63 y.o. Referring Physician: [...] CATARACT W/ IMPLANT (ECCE IOL) Bilateral 2018 [facility] TREATMENT OPEN PATELLAR FX W/ INTERNAL [...] mouth 3 times daily as needed. Biotin 27780 MCG Tab take 2 tablets by mouth [...] as needed. , Disp: , Rfl: Biotin 60784 MCG Tab, take 2 tablets by mouth [...] 01/03/2019 3:26 PM Patient: Danyelle Haskins MR#: [id number] : 1955 Age: 63 y.o. Referring Physician: [...] CATARACT W/ IMPLANT (ECCE IOL) Bilateral 2018 [facility] TREATMENT OPEN PATELLAR FX W/ INTERNAL [...] mouth 3 times daily as needed. Biotin 49014 MCG Tab take 2 tablets by mouth [...] as needed. , Disp: , Rfl: Biotin 21013 MCG Tab, take 2 tablets by mouth [...] S/p left TKA POD#3 PT OT social science research assistant discharge planning DVT prophylaxis Lori Whelan dc to SNF for additional therapy Obesity: [...] chlorhexidine 4 % LIQD Commonly known as: SARIAH hydroxychloroquine ([facility]-69492) 200 MG TABS leflunomide 20 MG TABS [...] as needed. Commonly known as: LIORESAL Biotin 85060 MCG TABS take 2 tablets by mouth [...] tolerated. Discharge Follow-up: New Mcclure MD [address] [phone] In 3 weeks Discharge Disposition: Patient will be discharged in stable condition. Discharge Time: Including assessment, planning, and medication reconciliation was greater than 35 min. Tanvi Hernandez DNP completing Discharge Summary for Dr. Vance Please note Portions of this note utilized GlassUp dictation software, please excuse any typographical or [...] be removed by a nurse at the [facility] 10-14 days after surgery. Your surgery d [...] - 11/24/2018 5:16 PM EST Contact Office ([phone]) if: > Total Knee ROM < 90 [...] Care Everywhere. * Acetaminophen tablets or caplets (American) * Apixaban oral tablets (American) * Docusate capsules (American) * Oxycodone tablets or capsules (American) in this encounter Chief Complaint and Reason [...] section and content) DATE CREATED AUTHOR 05/02/2018 [facility] DATE CREATED AUTHOR AUTHOR'S ORGANIZ ATION 05/02/2018 [facility] DATE CREATED AUTHOR AUTHOR'S ORGANIZ ATION 05/05/2018 [facility] DATE CREATED AUTHOR AUTHOR'S ORGANIZ ATION 03/22/2020 [facility] DATE CREATED AUTHOR AUTHOR'S ORGANIZ ATION 02/01/2022 [facility] DATE CREATED AUTHOR AUTHOR'S ORGANIZ ATION 02/13/2023 [facility] DATE CREATED AUTHOR AUTHOR'S ORGANIZ ATION 07/09/2023 [facility] DATE CREATED AUTHOR AUTHOR'S ORGANIZ ATION 11/30/2024 [facility] DATE CREATED AUTHOR AUTHOR'S ORGANIZ ATION 09/06/2025 [facility] Reason for Visit (unrecogniz ed section and content) ReasonCommentsPreoperative Nurse AssessmentSurgery scheduled 11/21/18StatusReason SpecialtyDiagnoses / ProceduresReferred By ContactReferred To Contact Diagnoses 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] New Mcclure MD [address] [place] [id number] StatusReasonSpecialtyDiagnoses / ProceduresReferred By ContactReferred To ContactNew Request Diagnoses Hx of total knee arthroplasty, left Procedures XR KNEE LEFT 2 VIEWS XR KNEE LEFT 3 VIEWS Rajinder Green, DECORATING INSTRUCTOR-HAIRSPRING FABRICATION SUPERVISOR [address] [place] [phone] ReasonCommentsPost Op VisitReasonCommentsLeg SwellingReasonCommentsFollow-upPost Op VisitStatusReasonSpecialtyDiagnoses / ProceduresReferred By ContactReferred To ContactNew Request Diagnoses Left knee pain, unspecified chronicity Procedures XR KNEE LEFT 2 VIEWS XR KNEE LEFT 3 VIEWS New Mcclure MD [address] [place] [phone] ReasonCommentsFollow-upStatusReasonSpecialtyDiagnoses / ProceduresReferred By ContactReferred To ContactPending Review Diagnoses History of total knee arthroplasty, left Procedures XR KNEE LEFT 3 VIEWS New Mcclure MD [address] [place] [address] 392[address] ReasonCommentsPost Op VisitReasonCommentsFollow-upReasonCommentsSkin Problem StatusReasonSpecialtyDiagnoses / ProceduresReferred By ContactReferred To ContactNew Request Diagnoses Hx of total knee arthroplasty, left Procedures XR KNEE LEFT 3 VIEWS New Mcclure MD [address] [place], [place] [phone] StatusReasonSpecialtyDiagnoses / ProceduresReferred By ContactReferred To ContactNew Request Diagnoses Right hip pain Procedures XR HIP WITH PELVIS RIGHT New Mcclure MD [address] [place], [place] [id number] ReasonCommentsFollow-upSpecialtyDiagnoses / ProceduresReferred By Contact Referred To Contact Diagnoses Hx of total knee arthroplasty, right Procedures XR KNEE RIGHT 3 VIEWS Rajinder Green, DECORATING INSTRUCTOR-HAIRSPRING FABRICATION SUPERVISOR [address] [place], [place] [id number] Referral IDStatusReasonStart DateExpiration DateVisits RequestedVisits [id number] Request/[id number] / Procedures Referred By ContactReferred To Contact Diagnoses Hx of total knee arthroplasty, right Procedures XR BONE LENGTH STUDY New Mcclure MD [address] [place] [address] Referral IDStatusReasonStart DateExpiration DateVisits RequestedVisits [id number] CommentsPreoperative AssessmentLTKA revision w/poss extensor mechanism reconstruction 11/29 SAF Pg *PAT ONLY SpecialtyDiagnoses / ProceduresReferred By ContactReferred To Contact Diagnoses Preop testing Procedures PREPARE TO TRANSFUSE RED BLOOD CELLS New Mcclure MD [address] [place], [place] [id number] Referral IDStatusReasonStart DateExpiration DateVisits RequestedVisits [id number] / ProceduresReferred By ContactReferred To Contact Diagnoses Hx of total knee arthroplasty, left Procedures XR KNEE LEFT 1-2 VIEWS XR KNEE LEFT 3 VIEWS Rajinder Green, DECORATING INSTRUCTOR-HAIRSPRING FABRICATION SUPERVISOR [address] [place], [place] [id number] Referral IDStatusReasonStart DateExpiration DateVisits RequestedVisits [id number] Request/[id number] / Procedures Referred By ContactReferred To Contact Diagnoses Right knee pain, unspecified chronicity Procedures XR KNEE RIGHT 3 VIEWS New Mcclure MD [address] [place], [place] [id number] Referral IDStatusReasonStart DateExpiration DateVisits RequestedVisits [id number] Request/[id number]crz Diagnoses / ProceduresReferred By ContactReferred To Contact Diagnoses Hx of total knee arthroplasty, left Procedures XR BONE LENGTH STUDY Rajinder Green, DECORATING INSTRUCTOR-HAIRSPRING FABRICATION SUPERVISOR [address] [place] [address] Referral IDStatusReasonStart DateExpiration DateVisits RequestedVisits [id number] Request/[id number]-vpPcnodg CommentsFollow-up14d s/p I&dReasonCommentsToenail CareNon Dm NailsReasonComments Back PainNumbnessReasonCommentsIngrown ToenailRt gt ingrownReasonComments Botulinum Toxin InjectionReasonOnset EymsVpcpmqzyZm01/23/2024ReasonComments Follow-up14d s/p rt gt avulsionReasonCommentsToenail CareNon dm nail care SpecialtyDiagnoses / ProceduresReferred By ContactReferred To Contact Diagnoses Hx of total knee arthroplasty, right Procedures XR KNEE RIGHT 1-2 VIEWS XR KNEE RIGHT 3 VIEWS New Mcclure MD [address] [place], [place] [id number] Referral IDStatusReasonStart DateExpiration DateVisits RequestedVisits [id number] Request/[id number]ms Pain BlepharospasmReasonCommentsFoot UlcerCallous infected, turned into ulcerReason CommentsFollow-upLt 3rd cellulitisReasonCommentsFollow-upLt 3rd ulcerReason CommentsPost-op1ST POST- LEFT PIPJReasonCommentsPost-op14d s/p lt 3rd pipjReason CommentsPost-op21d s/p lt 3rd pipjReasonCommentsPost-op5wk lt 3rd pipjReason Onset DateCommentsMed Ybtius2403/20/2025ReasonCommentsMacular DegenerationReason CommentsToenail Care Care Teams (unrecognized sec tion and content) Team MemberRelationshipSpecialtyStart DateEnd Date Yulisa Batres MD [address] [place] [address] PCP - GeneralFamily Medicine03/18/23Team MemberRelationshipSpecialtyStart DateEnd Date Yulisa Batres MD [address] [place] [address] PCP - GeneralFamily Medicine03/18/23Team MemberRelationshipSpecialtyStart DateEnd Date Yulisa Batres MD [address] [place] [address] PCP - GeneralFamily Medicine03/18/23Team MemberRelationshipSpecialtyStart [place] [address] [place] [address] PCP - GeneralFamily Medicine03/18/23Team MemberRelationshipSpecialtyStart [place] [address] [place] [address] PCP - GeneralFamily Medicine03/18/23Team MemberRelationshipSpecialtyStart DateEnd Date Yulisa Batres MD [address] [place] [address] [place] [address] PCP - GeneralFamily Medicine03/18/23Team MemberRelationshipSpecialtyStart DateEnd Date Yulisa Batres MD [address] [place] [address] [place] [address] PCP - GeneralFamily Medicine03/18/23Team MemberRelationshipSpecialtyStart DateEnd Date Yulisa Batres MD [address] [place] [address] [place] [address] PCP - GeneralFamily Medicine03/18/23Team MemberRelationshipSpecialtyStart DateEnd Date Yulisa Batres MD [address] [place] [address] [place] [address] PCP - GeneralFamily Medicine03/18/23Team MemberRelationshipSpecialtyStart DateEnd Date Yulisa Batres MD [address] [place] [address] [place] [address] PCP - GeneralFamily Medicine03/18/23Team MemberRelationshipSpecialtyStart DateEnd Date Yulisa Batres MD [address] [place] [address] [place] [address] PCP - GeneralFamily Medicine03/18/23Team MemberRelationshipSpecialtyStart DateEnd Date Yulisa Batres MD [address] [place] [address] [place] [address] PCP - GeneralFamily Medicine03/18/23Team MemberRelationshipSpecialtyStart DateEnd Date Yulisa Batres MD [address] [facility] [place] [address] [facility] - [facility]03/18/23Team MemberRelationshipSpecialtyStart DateEnd Date Yulisa Batres MD [address] [facility] [place] [address] PCP - [facility] Medicine03/18/23Team MemberRelationshipSpecialtyStart DateEnd Date Yulisa Batres MD [address] [place] [place] [address] PCP - General07/06/23 Gaby Christianson NP [address] [phone] Nurse PractitionerNeurology01/26/24 Darren Monaco MD [address] Professional building 1 [place] [address] Referring PhysicianRheumatology07/31/24Team MemberRelationshipSpecialtyStart Date End Yulisa Batres MD [address] [place] [address] PCP - General07/06/23 Gaby Christianson NP [address] [phone] Nurse PractitionerNeurology01/26/24 Darren Monaco MD [address] Professional building [address] [place] [address] Referring PhysicianRheumatology07/31/24Team MemberRelationshipSpecialtyStart Date End Date Yulisa Batres MD [address] [place] [address] PCP - General07/06/23 Gaby Christianson NP [address] [phone] Nurse PractitionerNeurology01/26/24 Darren Monaco MD [address] [facility] Professional building [address] [place] [phone] Referring PhysicianRheumatology07/31/24Team MemberRelationshipSpecialtyStart Date End Date Yulisa Batres MD [address] [place] [address] PCP - General07/06/23 Gaby Christianson NP [address] [phone] Nurse PractitionerNeurology01/26/24Team MemberRelationshipSpecialtyStart DateEnd Date Yulisa Batres MD [address] [place] [address] PCP - General07/06/23 Gaby Christianson NP [address] [address] Nurse PractitionerNeurology01/26/24Team MemberRelationshipSpecialtyStart DateEnd Date Yulisa Batres MD [address] [place] [address] PCP - General07/06/23 Gaby Christianson NP [address] [place] [phone] Nurse PractitionerNeurology01/26/24 Darren Monaco MD [address] Professional building [address] [place] [phone] Referring PhysicianRheumatology07/31/24Team MemberRelationshipSpecialtyStart Date End Date Yulisa Batres MD [facility] [place] [address] PCP - General07/06/23 Gaby Christianson NP [facility] [place] [phone] Nurse PractitionerNeurology01/26/24 Darren Monaco MD [address] [facility] Professional building 1 [place] [address] Referring PhysicianRheumatology07/31/24Team MemberRelationshipSpecialtyStart Date End Date Yulisa Batres MD [address] [place] [address] PCP - General07/06/23 Gaby Christianson NP [address] [phone] Nurse PractitionerNeurology01/26/24 Darren Monaco MD [address] Professional [address] [place] [address] Referring PhysicianRheumatology07/31/24Team MemberRelationshipSpecialtyStart Date End Date Yulisa Batres MD [address] [place] [place] [address] PCP - General07/06/23 Gaby Christianson NP [address] [phone] Nurse PractitionerNeurology01/26/24 Darren Monaco MD [address] [facility] Professional building [address] [place] [phone] Referring PhysicianRheumatology07/31/24Team MemberRelationshipSpecialtyStart Date End Date Yulisa Batres MD [address] [place] [address] PCP - General07/06/23 Gaby Christianson NP [facility] [phone] Nurse PractitionerNeurology01/26/24Team MemberRelationshipSpecialtyStart DateEnd Date Yulisa Batres MD [address] [place] [address] PCP - General07/06/23 Gaby Christianson NP [address] [phone] Nurse PractitionerNeurology01/26/24Team MemberRelationshipSpecialtyStart DateEnd Date Yulisa Batres MD [address] [place] [address] PCP - General07/06/23 Gaby Christianson NP [address] [phone] Nurse PractitionerNeurology01/26/24Team MemberRelationshipSpecialtyStart DateEnd Date Yulisa Batres MD [address] [place] [address] PCP - General07/06/23 Gaby Christianson NP [address] [phone] Nurse PractitionerNeurology01/26/24Team MemberRelationshipSpecialtyStart DateEnd Date Yulisa Batres MD [address] [place] [address] PCP - General07/06/23 Gaby Christianson NP [address] [phone] Nurse PractitionerNeurology01/26/24 Darren Monaco MD [address] [facility] Professional building [address] [place] [phone] Referring PhysicianRheumatology07/31/24Team MemberRelationshipSpecialtyStart Date End Date Yulisa Batres MD [address] [place] [address] PCP - General07/06/23 Gaby Christianson NP [address] [address] Nurse PractitionerNeurology01/26/24Team MemberRelationshipSpecialtyStart DateEnd Date Yulisa Batres MD [address] [place] [address] PCP - General07/06/23 Gaby Christianson, HARPAL [address] [place] [phone] Nurse PractitionerNeurology01/26/24 Darren Monaco MD [address] [facility] Professional building 1 [place] [address] Referring PhysicianRheumatology07/31/24Team MemberRelationshipSpecialtyStart Date End Date Yulisa Batres MD [address] [place] [address] PCP - General07/06/23 Gaby Christianson, HARPAL [address] [phone] Nurse PractitionerNeurology01/26/24 Darren Monaco MD [address] [facility] Professional building 1 [place] [address] Referring PhysicianRheumatology07/31/24Team MemberRelationshipSpecialtyStart Date End Date Yulisa Batres MD [address] [facility] [place] [address] [facility] - [facility]03/18/23Team MemberRelationshipSpecialtyStart DateEnd Date Yulisa Batres MD [address] [facility] [place] [address] PCP - GeneralFamily [facility]03/18/23Team MemberRelationshipSpecialtyStart DateEnd Date Yulisa Batres MD [address] [place] [address] PCP - General07/06/23 Gaby Christianson, HARPAL [address] [place] [address] Nurse PractitionerNeurology01/26/24 Darren Monaco MD [address] [facility] Professional building 1 [place] [address] Referring PhysicianRheumatology07/31/24Team MemberRelationshipSpecialtyStart Date End Date Yulisa Batres MD [address] [place] [address] PCP - General07/06/23 Gaby Christianson NP [address] [place] [address] Nurse PractitionerNeurology01/26/24 Darren Monaco MD [address] [facility] Professional building 1 [place] [address] Referring PhysicianRheumatology07/31/24Team MemberRelationshipSpecialtyStart Date End Date Yulisa Batres MD [address] [place] [address] PCP - General07/06/23 Gaby Christianson NP [address] [place] [phone] Nurse PractitionerNeurology01/26/24 Darren Monaco MD [address] Professional [address] [place] [phone] Referring PhysicianRheumatology07/31/24Team MemberRelationshipSpecialtyStart Date End Date Yulisa Batres MD PCP - General07/06/23 Gaby Christianson NP [address] [place] [phone] Nurse PractitionerNeurology01/26/24 Darren Monaco MD [address] [facility] Professional building 1 [place] [phone] Referring PhysicianRheumatology07/31/24Team MemberRelationshipSpecialtyStart Date End Date Yulisa Batres MD PCP - General07/06/23 Gaby Christianson NP [address] [place] [phone] Nurse PractitionerNeurology01/26/24 Darren Monaco MD [address] [facility] Professional building 1 [place] [address] Referring PhysicianRheumatology07/31/24Team MemberRelationshipSpecialtyStart Date End Date Yulisa Batres MD PCP - General07/06/23 Gaby Christianson NP [address] [place] [phone] Nurse PractitionerNeurology01/26/24 Darren Monaco MD [address] Professional building [address] [place] [address] Referring PhysicianRheumatology07/31/24 Team Status: Active Member Role [...] Christianson NP Nurse PractitionerNeurology01/26/24 Darren Monaco MD [address] [facility] [address] Professional building 1 [place] [address] Referring PhysicianRheumatology07/31/24Team MemberRelationshipSpecialtyStart Date End Date Yulisa Batres MD PCP - General07/06/23 Gaby Christianson NP Nurse PractitionerNeurology01/26/24 Darren Monaco MD [address] Professional building 1 [place] [address] Referring PhysicianRheumatology07/31/24 Team Status: Inactive Member Role Status Dates Yulisa Batres MD Primary Care Provider Active Start: June 13, 2025 End: June 13, 2025Medardo Perkins ProviderActiveStart: June 13, 2025 End: June 13, 2025Team MemberRelationshipSpecialtyStart DateEnd Date Yulisa Batres MD [facility] [place] [address] PCP - General07/06/23 Gaby Christianson NP [address] [place] [phone] Nurse PractitionerNeurology01/26/24 Darren Monaco MD [address] [facility] Professional building 1 [place] [address] Referring PhysicianRheumatology07/31/24Team MemberRelationshipSpecialtyStart Date End Date Yulisa Batres MD [address] [place] [address] [facility]07/06/23 Gaby Christianson NP [address] [place] [phone] Nurse PractitionerNeurology01/26/24 Darren Monaco MD [address] [facility] Professional building 1 [place] [address] Referring PhysicianRheumatology07/31/24 Team Status: Inactive Member Role [...] Start: July 23, 2025 End: July 23, 2025Team MemberRelationshipSpecialtyStart DateEnd Date Yulisa Batres MD [address] [place] [address] PCP - General07/06/23 Gaby Christianson NP [address] [place] [address] Nurse PractitionerNeurology01/26/24 Darren Monaco MD [address] [facility] Professional building 1 [place] [address] Referring PhysicianRheumatology07/31/24Team MemberRelationshipSpecialtyStart Date End Yulisa Batres MD [address] [place] [address] PCP - General07/06/23 Gaby Christianson NP [address] [place] [address] Nurse PractitionerNeurology01/26/24 Darren Monaco MD [address] [facility] Professional building [address] [place] [address] Referring PhysicianRheumatology07/31/24 Goals (unrecognized section and content) Goals may [...] BE BASED ON THE PRIMARY CLINICAL RECORDS. [facility]. provides no warranty or guarantee of the accuracy or completeness of information in this document.
--- OUTSIDE RECORDS SUMMARY | 2025-09-11 08:15 | XMS_ITS | Patient Health Record ---
Author Organization [facility] in [place] Address [address] [place] [address] Care Team Providers Care Compliance Review Officer Name Role Phone Howard Batres Primary Care Provider Allergies Allergen (clinical drug ingredient) Drug/Non Drug Allergy documented on EMR Reaction Allergy Type Onset Date Status alendronate Alendronate Sodium Indigestion Drug Allergy Activesulfamethoxazole / trimethoprimBactrimMuscle WeaknessDrug AllergyActive gabapentinGraliseBlistered SkinDrug AllergyActivegabapentinGabapentinNauseaDrug AllergyActiveoxcarbazepineOxcarbazepineConfusionDrug AllergyActive Results Component Value Reference Range Notes Complement, Total (CH50) Reviewed date:10/24/2024 03:53:15 PM Interpretation: Performing Lab: Notes/Report: [facility] , Complement, Total (CH50) >60 >41 U/mL Age Male Female 1 - 30 days [...] to determine out of range values. Performed at: - [facility] [address] [id number] Metal Sheet Roller Operator: Jann Darnell PhD, Phone: [phone] Performing Lab: see note - [facility] LBPROF 14(COMP METB) Reviewed date:01/28/2025 08:46:01 PM Interpretation: Performing Lab: Notes/Report: [facility] ,Phjjit766248-550 mmol/LPotassium4.53.5-5.1 mmol/LJslcdgqn68713-140 mmol/LCarbon Grvtzym63.021.0-32.0 mmol/LAnion Gap12.7Yjvmxgo6374-015 mg/dLBlood Urea Nitrogen 13.07.0-18.0 mg/dLCreatinine0.790.55-1.02 mg/dLEstimated GFR ( Stephenie>60 >=60 mL/min/1.73m 2Estimated GFR (Non- Rosa>60>=60 mL/min/1.73m 2BUN Creatinine Ratio16.0Phoaehv6.58.5-10.1 mg/dLBilirubin Total1.00.2-1.0 mg/dL Aspartate Amino Mdonhjtphst4529-52 U/LAlanine Omisuvexeimyeccz0281-78 U/L Alkaline Tnmqbbvuphd3262-227 U/LTotal Protein6.96.4-8.2 g/dLAlbumin Level3.63.4- 5.0 g/dLGlobulin3.3Albumin Globulin Ratio1.1Performing Lab:see noteML - [facility] LB lumbar spine wo con Reviewed date:05/07/2025 06:48:08 PM Interpretation: Performing Lab: Notes/Report: Source Facility: [place] [address] Magnetic Resonance Report Signed Patient: DANYELLE CHRIS MR#: [id number] : 1955 Acct:[id number] Age/Sex: 69 / F ADM Date: 05/07/25 Loc: MRI Attending Dr: Addis Palmer NP Ordering Physician: Addis Palmer NP Date of Service: 05/07/25 Procedure(s): MR lumbar spine wo con Accession Number(s): [id number] cc: Addis Palmer NP; Yulisa Batres M.D. [place] [address] Patient Name: DANYELLE CHRIS MRN: [id number] date: 1955 Sex: F Assigned Patient Location: MRI Current Patient Location: MRI Accession/Order Number: [id number] Exam Date: 05/07/2025 15:04 Report Date: 05/07/2025 15:10 At the request of: ADDIS PALMER NP Procedure: MR lumbar spine wo con EXAMINATION: MRI LUMBAR SPINE WITHOUT IV CONTRAST CLINICAL HISTORY: Chronic low back pain with radiculopathy. COMPARISON: None TECHNIQUE: Multiecho imaging was performed in the sagittal and axial planes without contrast administration. FINDINGS: Posterior hardware fixation L2-L5 with associated blooming artifact limiting evaluation. Vertebral body heights appear maintained. No bone marrow edema. Spinal cord terminates in normal position without abnormal cord signal. No paraspinal mass. Visualized retroperitoneum demonstrates no acute findings. At L1-L2: Diffuse broad-based disc bulge is present with ligamentum flavum hypertrophy and facet joint degenerative changes causing severe canal and bilateral neural foraminal stenosis. At L2-L3: Postoperative change. No canal stenosis. At L3-L4: Postoperative changes. No canal stenosis. At L4-L5: Postoperative change. No canal stenosis. At L5-S1: Diffuse broad-based disc bulge is present with disc desiccation. Facet joint degenerative changes. Findings are causing mild canal and severe bilateral neural foraminal stenosis. MR/MR lumbar spine wo con IMPRESSION: Degenerative disc disease as described above worst at L1-L2. Impression dictated by: Clem Castellanos Jr., D.OGwen 05/07/2025 3:10 PM Dictation Location: [place] [address] Electronically authenticated by: [id number] Y Date: 05/07/2025 15:10 Dictated By: Clem Castellanos M.D. Signed By: 05/07/25 1512 DD/ 1510 TD/TT: [employer]:C4+C3 Reviewed date:05/25/2025 02:51:44 PM Interpretation: Performing Lab: Notes/Report: [facility] ,Complement C3, Bpyne49516-057 mg/dLComplement C4, Sedea4022-27 mg/dL Performed at: [address] [id number] Metal Sheet Roller Operator: Jann Darnell PhD, Phone: [phone] [facility] LBPROF 14(COMP METB) Reviewed date:08/15/2025 12:41:01 PM Interpretation: Performing Lab: Notes/Report: [facility] ,Oxefrj289403-362 mmol/LPotassium4.23.5-5.1 mmol/KWdmqckhq32204-428 mmol/LCarbon Jotlrcg55.221.0-32.0 mmol/LAnion Gap13.2Ghtgerc5604-119 mg/dLBlood Urea Nitrogen 19.07.0-18.0 mg/dLCreatinine0.600.55-1.02 mg/dLEstimated GFR ( Stephenie>60 >=60 mL/min/1.73m 2Estimated GFR (Non- Rosa>60>=60 mL/min/1.73m 2BUN Creatinine Ratio31.5Jlrtcri4.08.5-10.1 mg/dLBilirubin Total0.70.2-1.0 mg/dL Aspartate Amino Tkdjvhodgnx3915-91 U/LAlanine Dsdpgxcokpjhwbkq4643-75 U/L Alkaline Wzzcjlarsoz0300-024 U/LTotal Protein7.16.4-8.2 g/dLAlbumin Level3.93.4- 5.0 g/dLGlobulin3.2Albumin Globulin Ratio1.2Performing Lab:see noteML - [facility] LBUA RANDOM W or MICROSCOPIC Reviewed date:08/15/2025 06:01:53 PM Interpretation: Performing Lab: Notes/Report: [facility] ,Color UrineYELLOWYELLOWClarity UrineCLEARCLEARSpecific [place] Urine>=1.030 1.005-1.025pH Urine5.55.0-9.0Protein UrineTRACENEG/TRACE mg/dLGlucose Urine UA NEGATIVENEGATIVE mg/dLBilirubin UrineNEGATIVENEGATIVEKetones UrineTRACENEGATIVE mg/dLBlood UrineNEGATIVENEGATIVENitrite UrineNEGATIVENEGATIVEUrobilinogen Urine 0.20.2-1.0 EU/dLLeukocyte Esterase UrineTRACENEGATIVEWBC Urine0-2NONE SEEN #/HPF RBC UrineNONE SEEN0-2 #/HPFBacteria UrineLARGENONE SEEN #/HPFMucus UrineMODERATE NONE SEENSquamous Epithelial Cell UrineFEWNONE/RARE #/LPFCrystals Seen?None Seen None Seen #/HPFCast Seen?NONE SEENNONE SEEN #/LPFPerforming Lab:see noteML - [facility] LBVITAMIN D 25 [place] Reviewed date:08/15/2025 06:01:53 PM Interpretation: Performing Lab: Notes/Report: [facility] ,Vitamin D55.4 <20 ng/mL Vit D deficient 20-<30 ng/mL Vit D insufficient 30-100 ng/mL Vit D sufficient >100 ng/mL Potential Toxicity Performing Lab:see noteML - [facility] LBErythrocyte Sedimentation Rate Reviewed date:08/15/2025 12:41:01 PM Interpretation: Performing Lab: Notes/Report: [facility] ,Erythrocyte Sedimentation Rate7<=30 mm/hrPerforming Lab:see note - [facility] LBMM tomosynthesis screening BI Reviewed date:09/05/2025 05:01:42 PM Interpretation: Performing Lab: Notes/Report: Source Facility: [place] [address] [place] [address] Mammography Report Signed Patient: DANYELLE CHRIS MR#: [id number] : 1955 Acct:[id number] Age/Sex: 70 / F ADM Date: 09/05/25 Loc: MAMMO Attending Dr: Yulisa Batres M.D. Ordering Physician: Yulisa Batres M.D. Results: Date of Service: 09/05/25 Follow Up: Procedure(s): MM tomosynthesis screening BI Accession Number(s): [id number] cc: Yulisa Batres M.D. Patient Name: DANYELLE CHRIS MR#: [id number] : 1955 Exam Date: 09/05/2025 Ordering Doctor: DR YULISA BATRES . RADIOLOGY REPORT PROCEDURE: MM TOMOSYNTHESIS SCREENING BI COMPARISON: MM TOMOSYNTHESIS SCREENING BI, 09/03/2024. MM TOMOSYNTHESIS SCREENING BI, 09/02/2023. MG MAMM SCREEN 3D BO CAD, 08/31/2022. MG MAMM SCREEN 3D BO CAD, 08/27/2021. INDICATIONS: screening Calculator Name NCI Breast Cancer Risk Assessment Tool 5 Year Breast Cancer Risk 2.00% Lifetime Breast Cancer Risk 5.10% Personal Breast Cancer No Personal Ovarian Cancer No Treatments None Family Cancers Father with stomach cancer at age 55; Sister with thyroid cancer at age 50. LOCATION: [facility] BREAST COMPOSITION: There are scattered areas of fibroglandular density. FINDINGS: DIAGNOSTIC CATEGORY 1--NEGATIVE. RIGHT BREAST: No significant suspicious finding. LEFT BREAST: No significant suspicious finding. RECOMMENDATIONS: ROUTINE MAMMOGRAM AND CLINICAL EVALUATION IN 12 MONTHS. Dictated by: Clem Castellanos DO on 09/05/2025 at 15:50 Approved by: Clem Castellanos DO on 09/05/2025 at 15:51 Dictated By: Clem Castellanos M.D. Signed By: 09/05/25 155 DD/ 51 TD/TT: [employer]:C4+C3 Reviewed date:08/16/2025 08:44:19 AM Interpretation: Performing Lab: Notes/Report: [facility] ,Complement C3, Fhjfa28838-594 mg/dLComplement C4, Jwqum3588-45 mg/dL Performed at: - [facility] [address] [id number] Metal Sheet Roller Operator: Jann Darnell PhD, Phone: [phone] Performing Lab:see note - [facility] LBCBC AUTO DIFF Reviewed date:08/15/2025 12:41:01 PM Interpretation: Performing Lab: Notes/Report: [facility] ,White Blood Count3.24.0-11.0 10 3/uLRed Blood Count3.314.20-5.40 10 6/uL Igbgvpeoky09.512.0-16.0 g/zGRosgiqbbin54.036.0-48.0 %Mean Corpuscular Volume 102.781.0-99.0 fLMean Corpuscular Zhwdeunyby98.726.7-34.0 pgMean Corpuscular HGB Conc33.829.9-35.2 g/dLRed Cell Distribution Width13.311.0-15.0 %Platelet Count 210479-534 10 3/uLMean Platelet Volume9.09.5-13.5 fLNeutrophils Percent Auto68.3 43.0-75.0 %Lymphocytes Percent Auto17.620.5-60.0 %Monocytes Percent Auto11.01.7- 12.0 %Eosinophils Percent Auto2.50.9-7.0 %Basophils Percent Auto0.30.2-2.0 % Immature Granulocytes Pct Auto0.30.0-0.5 %Neutrophils Absolute Auto2.21.4-6.5 10 3/uLLymphocytes Absolute Auto0.61.2-3.8 10 3/uLMonocytes Absolute Auto0.40.3-0.8 10 3/uLEosinophils Absolute Auto0.10.0-0.7 10 3/uLBasophils Absolute Auto0.00.0- 0.1 10 3/uLImmature Granulocytes Abs Auto0.010.00-0.03 10 3/uLPerforming Lab:see noteML - [facility] LBComplement, Total (CH50) Reviewed date:05/25/2025 02:51:44 PM Interpretation: Performing Lab: Notes/Report: [facility] ,Complement, Total (CH50)>60>41 U/mL Age Male Female 1 - 30 days [...] to determine out of range values. Performed at: [address] [id number] Metal Sheet Roller Operator: Jann Darnell PhD, Phone: [phone] Performing Lab:see noteLC - [facility] LBErythrocyte Sedimentation Rate Reviewed date:05/23/2025 05:01:35 PM Interpretation: Performing Lab: Notes/Report: [facility] ,Erythrocyte Sedimentation Rate13<=30 mm/hrPerforming Lab:see noteML - [facility] LBPROF 14(COMP METB) Reviewed date:05/23/2025 05:01:35 PM Interpretation: Performing Lab: Notes/Report: [facility] ,Slhgob230634-626 mmol/LPotassium4.53.5-5.1 mmol/NRejslvie76174-203 mmol/LCarbon Fmsbhat79.021.0-32.0 mmol/LAnion Gap12.6Acujkrh19371-402 mg/dLBlood Urea Gxkjobla23.07.0-18.0 mg/dLCreatinine0.620.55-1.02 mg/dLEstimated GFR ( Stephenie>60>=60 mL/min/1.73m 2Estimated GFR (Non- Rosa>60>=60 mL/min/1.73m 2BUN Creatinine Ratio33.3Mdltizs0.58.5-10.1 mg/dLBilirubin Total0.70.2-1.0 mg/dL Aspartate Amino Vjttvrzsfcs6380-76 U/LAlanine Sbnzdkwcjrtglmfk9016-32 U/L Alkaline Ujbiiquajva3687-381 U/LTotal Protein6.96.4-8.2 g/dLAlbumin Level3.73.4- 5.0 g/dLGlobulin3.2Albumin Globulin Ratio1.2Performing Lab:see noteML - [facility] LBCBC AUTO DIFF Reviewed date:05/23/2025 05:01:35 PM Interpretation: Performing Lab: Notes/Report: [facility] ,White Blood Count3.24.0-11.0 10 3/uLRed Blood Count3.524.20-5.40 10 6/uL Nszqeugugd05.012.0-16.0 g/nUMtvmnsewbu64.236.0-48.0 %Mean Corpuscular Volume 102.881.0-99.0 fLMean Corpuscular Hnulyylpeg99.126.7-34.0 pgMean Corpuscular HGB Conc33.129.9-35.2 g/dLRed Cell Distribution Width13.711.0-15.0 %Platelet Count 747008-072 10 3/uLMean Platelet Volume9.09.5-13.5 fLNeutrophils Percent Auto69.2 43.0-75.0 %Lymphocytes Percent Auto16.720.5-60.0 %Monocytes Percent Auto11.01.7- 12.0 %Eosinophils Percent Auto2.50.9-7.0 %Basophils Percent Auto0.30.2-2.0 % Immature Granulocytes Pct Auto0.30.0-0.5 %Neutrophils Absolute Auto2.21.4-6.5 10 3/uLLymphocytes Absolute Auto0.51.2-3.8 10 3/uLMonocytes Absolute Auto0.40.3-0.8 10 3/uLEosinophils Absolute Auto0.10.0-0.7 10 3/uLBasophils Absolute Auto0.00.0- 0.1 10 3/uLImmature Granulocytes Abs Auto0.010.00-0.03 10 3/uLPerforming Lab:see noteML - [facility] LBXR elbow LT min 3V Reviewed date:02/28/2025 06:59:53 PM Interpretation: Performing Lab: Notes/Report: Source Facility: [place] [address] [place] [address] XRay Report Signed Patient: DANYELLE CHRIS MR#: [id number] : 1955 Acct:[id number] Age/Sex: 69 / F ADM Date: 02/28/25 Loc: [facility] Attending Dr: Laura Larson NP Ordering Physician: Laura Larson NP Date of Service: 02/28/25 Procedure(s): XR elbow LT min 3V Accession Number(s): [id number] cc: Yulisa Batres M.D.; Laura Larson NP [place] [address] Patient Name: DANYELLE CHRIS MRN: [id number] date: 1955 Sex: F Assigned Patient Location: [facility] Current Patient Location: [facility] Accession/Order Number: [id number] Exam Date: 02/28/2025 13:55 Report Date: 02/28/2025 13:56 At the request of: LAURA LARSON NP Procedure: XR elbow LT min 3V LEFT ELBOW - 3 views CLINICAL HISTORY: Chronic left medial elbow pain for 3 months COMPARISON: None FINDINGS: Bones are grossly demineralized. No acute bony process. Minimal olecranon spurring. No joint effusion. XR/XR elbow LT min 3V IMPRESSION: MINIMAL DEGENERATIVE CHANGE WITHOUT ACUTE BONY PROCESS. Impression dictated by: Clem Castellanos Jr., D.O.02/28/2025 1:56 PM Dictation Location: [place] [address] Electronically authenticated by: [id number] Y Date: 02/28/2025 13:56 Dictated By: Clem Castellanos M.D. Signed By: 02/28/25 1359 DD/ 1356 TD/TT: [employer]:Complement, Total (CH50) Reviewed date:01/29/2025 08:25:25 PM Interpretation: Performing Lab: Notes/Report: [facility] ,Complement, Total (CH50)>60>41 U/mL Age Male Female 1 - 30 days [...] to determine out of range values. Performed at: [facility] [employer] [id number] Metal Sheet Roller Operator: Jann Darnell PhD, Phone: [phone] Performing Lab:see noteLC - [facility] LBC4+C3 Reviewed date:01/29/2025 12:11:17 PM Interpretation: Performing Lab: Notes/Report: [facility] ,Complement C3, Vynst20826-609 mg/dLComplement C4, Hqjma3591-44 mg/dL Performed at: [address] [id number] Metal Sheet Roller Operator: Jann Darnell PhD, Phone: [phone] Performing Lab:see noteLC - [facility] LBManual Differential Reviewed date:01/28/2025 08:46:01 PM Interpretation: Performing Lab: Notes/Report: [facility] ,Segmented Neutrophils % Dsytzj44.043.0-75.0Lymphocytes Percent Cmezmc86.020.5- 60.0 %Monocytes Percent Manual9.01.7-12.0 %Eosinophils Percent Manual2.00.9-7.0 %Basophils Percent Manual1.00.2-2.0 %Segmented Neut Absolute Manual3.071.4-6.5 10 3/uLLymphocytes Absolute Manual0.531.20-3.80 10 3/uLMonocytes Absolute Manual 0.360.30-0.80 10 3/uLEosinophils Absolute Manual0.080.00-0.70 10 3/uLBasophils Abs Manual0.040.00-0.10 10 3/uLMacrocytosis3+Performing Lab:see noteML - [facility] LBErythrocyte Sedimentation Rate Reviewed date:01/28/2025 08:46:01 PM Interpretation: Performing Lab: Notes/Report: [facility] ,Erythrocyte Sedimentation Rate11<=30 mm/hrPerforming Lab:see noteML - [facility] LBUA RANDOM W or MICROSCOPIC Reviewed date:01/28/2025 08:46:01 PM Interpretation: Performing Lab: Notes/Report: [facility] ,Color UrineLT. YELLOWYELLOWClarity UrineCLEARCLEARSpecific [place] Urine1.015 1.005-1.025pH Urine7.05.0-9.0Protein UrineNEGATIVENEG/TRACE mg/dLGlucose Urine UANEGATIVENEGATIVE mg/dLBilirubin UrineNEGATIVENEGATIVEKetones UrineNEGATIVE NEGATIVE mg/dLBlood UrineNEGATIVENEGATIVENitrite UrineNEGATIVENEGATIVE Urobilinogen Urine0.20.2-1.0 EU/dLLeukocyte Esterase UrineNEGATIVENEGATIVEWBC UrineNONE SEENNONE SEEN #/HPFRBC Urine0-20-2 #/HPFBacteria UrineTRACENONE SEEN #/HPFMucus UrineTRACENONE SEENSquamous Epithelial Cell UrineRARENONE/RARE #/LPF Crystals Seen?None SeenNone Seen #/HPFCast Seen?NONE SEENNONE SEEN #/LPF Performing Lab:see noteML - [facility] LBCBC AUTO DIFF Reviewed date:01/28/2025 08:46:01 PM Interpretation: Performing Lab: Notes/Report: [facility] ,White Blood Count4.14.0-11.0 10 3/uLRed Blood Count3.504.20-5.40 10 6/uL Xcdfszsbbs05.812.0-16.0 g/lSDrhdusapbm04.836.0-48.0 %Mean Corpuscular Volume 105.181.0-99.0 fLMean Corpuscular Gafflhzszl67.726.7-34.0 pgMean Corpuscular HGB Conc32.129.9-35.2 g/dLRed Cell Distribution Width13.611.0-15.0 %Platelet Count 349409-479 10 3/uLMean Platelet Volume8.89.5-13.5 fLPerforming Lab:see noteML - [facility] LBXR DEXA axial skeleton Reviewed date:12/20/2024 07:53:17 PM Interpretation: Performing Lab: Notes/Report: Source Facility: [facility]-[address] [place] [address] XRay Report Signed Patient: DANYELLE CHRIS MR#: [id number] : 1955 Acct:[id number] Age/Sex: 69 / F ADM Date: 12/19/24 Loc: [facility] Attending Dr: DARREN MONACO Ordering Physician: DARREN MONACO Date of Service: 12/19/24 Procedure(s): XR DEXA axial skeleton Accession Number(s): [id number] cc: Yulisa Batres M.D.; DARREN MONACO [place] [id number] Patient Name: DANYELLE CHRIS MRN: [id number] date: 1955 Sex: F Assigned Patient Location: [facility] Current Patient Location: Accession/Order Number: [id number] Exam Date: 12/19/2024 10:01 Report Date: 12/20/2024 08:03 At the request of: DARREN MONACO Procedure: XR DEXA axial skeleton EXAMINATION: XR DEXA axial skeleton HISTORY: Age Related Osteoporosis COMPARISON: DEXA bone densitometry 08/27/2022 TECHNIQUE: Dual-energy X-ray absorptiometry (DXA) was performed. FINDINGS: FOREARM ANALYSIS: Average bone mineral density is 0.542 g/cm2. T-score (standard deviation relative to young adult mean): -2.4 . -9.6% change since prior study. HIP ANALYSIS: Bone mineral density within the left femoral neck, is 0.872 g/cm2. T-score (standard deviation relative to young adult mean): -1.2 . +0.3% change since prior study. XR/XR DEXA axial skeleton IMPRESSION: World Health Organization Classification: Osteopenia - Moderate Fracture Risk FRAX: Cannot be calculated. Pharmacologic treatment recommendations * No uniform recommendation applies to all patients. Management plans must be individualized. * Consider initiating pharmacologic treatment in postmenopausal women and men >= 50 years of age who have the following: Primary fracture prevention: * T-score <= - 2.5 at the femoral neck, total hip, lumbar spine, 33% radius (some uncertainty with existing data) by DXA. * Low bone mass (osteopenia: T-score between - 1.0 and - 2.5) at the femoral neck or total hip by DXA with a 10-year hip fracture risk >= 3% or a 10-year major osteoporosis-related fracture risk >= 20% (i.e., clinical vertebral, hip, forearm, or proximal humerus) based on the US-adapted FRAXregistered model. Secondary fracture prevention: * Fracture of the hip or vertebra regardless of BMD [4, 5]. * Fracture of proximal humerus, pelvis, or distal forearm in persons with low bone mass (osteopenia: T-score between - 1.0 and - 2.5). The decision to treat should be individualized in persons with a fracture of the proximal humerus, pelvis, or distal forearm who do not have osteopenia or low BMD [12, 13]. Osmin MS, Ema SL, Zelalem KL, Juana EM, Jacinto KG, AJ, Fredrick ES. The clinician's guide to prevention and treatment of osteoporosis. Osteoporos Int. 2021;33(10):1613-2078. doi: 10.1007/q56212-194-20044-a. Epub 2021Mar 04. Erratum in: Osteoporos Int. 2021Jun 03;: PMID: [id number]; PMCID: [id number]. Electronically authenticated by: TONE MERRITT Date: 12/20/2024 08:03 Dictated By: Tone Merritt M.D. Signed By: 12/20/24805 DD/ 2 TD/TT: [employer]:C4+C3 Reviewed date:10/24/2024 03:53:15 PM Interpretation: Performing Lab: Notes/Report: [facility] ,Complement C3, Kdjcg65767-900 mg/dLComplement C4, Bnkzr3953-61 mg/dL Performed at: [facility] [address] [id number] Metal Sheet Roller Operator: Jann Darnell PhD, Phone: [phone] Performing Lab:see noteLC - [facility] LBErythrocyte Sedimentation Rate Reviewed date:10/23/2024 12:24:53 PM Interpretation: Performing Lab: Notes/Report: [facility] ,Erythrocyte Sedimentation Rate10<=30 mm/hrPerforming Lab:see noteML - [facility] LBUA RANDOM W or MICROSCOPIC Reviewed date:10/23/2024 12:26:01 PM Interpretation: Performing Lab: Notes/Report: [facility] ,Color UrineLT. YELLOWYELLOWClarity UrineCLEARCLEARSpecific [place] Urine1.010 1.005-1.025pH Urine7.05.0-9.0Protein UrineNEGATIVENEG/TRACE mg/dLGlucose Urine UANEGATIVENEGATIVE mg/dLBilirubin UrineNEGATIVENEGATIVEKetones UrineNEGATIVE NEGATIVE mg/dLBlood UrineNEGATIVENEGATIVENitrite UrineNEGATIVENEGATIVE Urobilinogen Urine0.20.2-1.0 EU/dLLeukocyte Esterase UrineNEGATIVENEGATIVEWBC Urine0-2NONE SEEN #/HPFRBC Urine0-20-2 #/HPFBacteria UrineNONE SEENNONE SEEN #/HPFMucus UrineNONE SEENNONE SEENSquamous Epithelial Cell UrineRARENONE/RARE #/LPFCrystals Seen?None SeenNone Seen #/HPFCast Seen?NONE SEENNONE SEEN #/LPF Performing Lab:see note - [facility] LBPROF 14(COMP METB) Reviewed date:10/23/2024 12:33:29 PM Interpretation: Performing Lab: Notes/Report: [facility] ,Ehhjyl365715-269 mmol/LPotassium3.93.5-5.1 mmol/YUqxinzhz43700-538 mmol/LCarbon Tvvvbzk23.421.0-32.0 mmol/LAnion Gap11.7Ydrohyr3964-090 mg/dLBlood Urea Nitrogen 15.07.0-18.0 mg/dLCreatinine0.770.55-1.02 mg/dLEstimated GFR ( Stephenie>60 >=60 mL/min/1.73m 2Estimated GFR (Non- Rosa>60>=60 mL/min/1.73m 2BUN Creatinine Ratio19.7Lkitbmp8.48.5-10.1 mg/dLBilirubin Total1.10.2-1.0 mg/dL Aspartate Amino Hqmtyrgisow8335-00 U/LAlanine Hmmyeiuzlzcnzoht4404-96 U/L Alkaline Alyixchhssx1286-105 U/LTotal Protein6.96.4-8.2 g/dLAlbumin Level3.83.4- 5.0 g/dLGlobulin3.1Albumin Globulin Ratio1.2Performing Lab:see noteML - [facility] LBCBC AUTO DIFF Reviewed date:10/23/2024 12:18:26 PM Interpretation: Performing Lab: Notes/Report: [facility] ,White Blood Count3.44.0-11.0 10 3/uLRed Blood Count3.564.20-5.40 10 6/uL Ypoqnrrptk38.812.0-16.0 g/vWAukjrlsjcv47.236.0-48.0 %Mean Corpuscular Volume 104.581.0-99.0 fLMean Corpuscular Tqkpplnwka89.126.7-34.0 pgMean Corpuscular HGB Conc31.729.9-35.2 g/dLRed Cell Distribution Width14.511.0-15.0 %Platelet Count 139832-755 10 3/uLMean Platelet Volume8.99.5-13.5 fLNeutrophils Percent Auto70.5 43.0-75.0 %Lymphocytes Percent Auto17.420.5-60.0 %Monocytes Percent Auto9.71.7- 12.0 %Eosinophils Percent Auto1.50.9-7.0 %Basophils Percent Auto0.60.2-2.0 % Immature Granulocytes Pct Auto0.30.0-0.5 %Neutrophils Absolute Auto2.41.4-6.5 10 3/uLLymphocytes Absolute Auto0.61.2-3.8 10 3/uLMonocytes Absolute Auto0.30.3-0.8 10 3/uLEosinophils Absolute Auto0.10.0-0.7 10 3/uLBasophils Absolute Auto0.00.0- 0.1 10 3/uLImmature Granulocytes Abs Auto0.010.00-0.03 10 3/uLPerforming Lab:see noteML - [facility] LBComplement, Total (CH50) Reviewed date:08/17/2025 12:39:13 PM Interpretation: Performing Lab: Notes/Report: [facility] ,Complement, Total (CH50)59>41 U/mL Age Male Female 1 - 30 days [...] to determine out of range values. Performed at: - [facility] [address] [id number] Metal Sheet Roller Operator: Jann Darnell PhD, Phone: [phone] Performing Lab:see noteLC - [facility] LBUA RANDOM W or MICROSCOPIC Reviewed date:05/23/2025 05:01:35 PM Interpretation: Performing Lab: Notes/Report: [facility] ,Color UrineLT. YELLOWYELLOWClarity UrineCLEARCLEARSpecific [place] Urine>=1.030 1.005-1.025pH Urine6.05.0-9.0Protein UrineNEGATIVENEG/TRACE mg/dLGlucose Urine UANEGATIVENEGATIVE mg/dLBilirubin UrineNEGATIVENEGATIVEKetones UrineTRACE NEGATIVE mg/dLBlood UrineNEGATIVENEGATIVENitrite UrineNEGATIVENEGATIVE Urobilinogen Urine0.20.2-1.0 EU/dLLeukocyte Esterase UrineSMALLNEGATIVEWBC Urine 2-5NONE SEEN #/HPFRBC Urine0-20-2 #/HPFBacteria UrineSMALLNONE SEEN #/HPFMucus UrineSMALLNONE SEENSquamous Epithelial Cell UrineFEWNONE/RARE #/LPFCrystals Seen?None SeenNone Seen #/HPFCast Seen?NONE SEENNONE SEEN #/LPFPerforming Lab: see noteML - [facility] [facility] Reason For Referral Diagnosis 1 Lumbar stenosis (M48 .061) Referral Organization [facility] Medicine Referring Provider First Name Howard Referring Provider Last Name Soha Referring Provider Speciality Family Med nikki Referred Provider Victoriano aHrley Referred Provider Specialty Neurosurgery Referral Priority Routine Medications Medication SIG (Take, Route, Frequency, Duration) Notes Start Date End Date Status Diclofenac Sodium 1 % External; Duration: 19 Day s ActivepredniSONE 5 MG2-3 tablets Orally as neededPRNActiveDoxazosin Mesylate 4 MG1 tablet Once a day; Duration: 30 daysActivePregabalin 25 MG1 capsule Orally dx M48.061 Twice Daily; Duration: 30 days06/01/2024ctiveCalcium + D 500-1000-40 MG-UNT-MCG2 1/2 Orally DailyActiveMulti Vitamin -1 tablet Orally Once a day ActiveCarvedilol 25 MGTAKE 1 TABLET BY MOUTH TWICE A DAY FOR 30 DAYS; Duration: 90ActivePantoprazole Sodium 40 MGTAKE 1 TABLET BY MOUTH EVERY DAY; Duration: 90 ActiveHydroxychloroquine Sulfate 200 MGas directed Orally Twice DailyActive Triamterene-HCTZ 37.5-25 MG1 tablet in the morning Orally Once a dayPRNActive Ibandronate Sodium 150 MG1 tablet 60 minutes before the first food, beverage or medicine of the day with plain water Orally once monthlyActiveTurmeric 500 MGas directed OrallyUnknown DosageActiveFolic Acid 1 MG1 tablet Orally Once a day ActivetiZANidine HCl 4 MG1 tablet as needed Orally at bedtimeActiveGlucosamine 1500 Complex -as directed OrallyActivetraMADol HCl 50 MG1 tablet as needed Orally dx M48.061 tid; Duration: 30 days06/01/2024ctiveLisinopril 40 MGTAKE 1 TABLET BY MOUTH EVERY DAY; Duration: 90ActiveBetamethasone Dipropionate 0.05 % 1 application Externally Twice a day As needed 08/28/2024ctiveMethotrexate 2.5 MG5 tablets Orally on TuesdayActiveVitamin C 1000 MG1 tablet Orally Once a dayActiveBiotin 5000 MCGtwo tablets Sublingual twice a dayActivemethylPREDNISolone 4 MG 1 tablet with food or milk Orally every 12 hrs As needed PRN14ActiveArava 20 MG1 tablet Orally Once a dayActiveTylenol Arthritis PainPRNActive Social History Tobacco Use: Social History Observation Description Date Details (start date - stop date) Never Smoker NA - NA Tobacco Use/Smoking Question Answer Notes Patient is a nonsmoker Alcohol Screen (Audit-C) Question Answer Notes Did you have a drink containing alcohol in the p ast year? No Vhteym6JlajgazhdosagqMbggkmjbNOXSS-U (Standard) Question Answer Notes Did you have a drink containing alcohol in the p ast year? No Goiwgc7LyypmtbczonxpuRbahpypr Problems Problem Type SNOMED Code ICD Code Onset Dates Problem Status W/U Status Risk Notes Problem Blepharospasm (84545556) Blepharospasm (G 24.5) ActiveconfirmedProblemUnstable knee (589512389)Other instability, left knee (M25.362)ActiveconfirmedProblemLumbosacral radiculopathy (0659980)Radiculopathy, lumbosacral region (M54.17)ActiveconfirmedProblemFull thickness rotator cuff tear (046391960)Complete rotator cuff tear or rupture of left shoulder, not specified as traumatic (M75.122)ActiveconfirmedProblemHypertension (05371740) Hypertension (I10)ActiveconfirmedProblemGastroesophageal reflux disease (274317017)GERD (gastroesophageal reflux disease) (K21.9)ActiveconfirmedProblem Hypertension (27020520)HTN (hypertension) (I10)ActiveconfirmedProblemHypothyroid (61668641)Hypothyroid (E03.9)ActiveconfirmedProblemOsteopenia (251895452) Osteopenia (M85.80)ActiveconfirmedProblemInsomnia (942789412)Insomnia (G47.00) ActiveconfirmedProblemOsteoarthritis of right knee joint (718115622160071)Right knee DJD (M17.9)ActiveconfirmedProblemHistory of left knee replacement (0691899785883352)History of left knee replacement (Z96.652)Activeconfirmed Problemhypercholesterolemia (disorder) (99996507)Hypercholesteremia (E78.00) ActiveconfirmedProblemHemifacial spasm (41607720)Hemifacial 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)Active confirmedProblemLumbar spinal stenosis (03448534)Lumbar stenosis (M48.061)Active confirmed Vital Signs Blood pressure diastolic 98 mm Hg 09/03/2025 Civokg15 in09/03/2025lood pressure ifdqddrz119 mm Hg09/03/20257741Wxzqzb394.0 lbs 09/03/2025BMI34.06 kg/m209/03/2025 Encounters Encounter Location Date Provider Diagnosis [facility] [address] [place] [address] 09/03/2025 Howard Batres Lumbar stenosis M48.061 [facility] [address] [place] [address] 09/05/2025 Howard Batres [facility] [place] [address] [facility] [place] [address]/11/2024[facility] [place] [address]/[facility] [place] [address]/07/2025[facility] [place] [address]/08/2025[facility] [place] [address]/08/2025 Howard [facility] [address] 10/[facility] [place] [address]/[facility] [place] [address]/28/2025Doug HoyHypertension I10 ; Hypothyroid E03.9 ; Hypercholesteremia E78.00 ; GERD (gastroesophageal reflux disease) K21.9 ; Insomnia G47.00 and Radiculopathy, lumbosacral region M54.17 Assessments Encounter Date Diagnosis (ICD Code) Assessment Notes Treatment Notes Treatment Clinical Notes Section Notes 09/03/2025 Hypertension (ICD-10 - I10) borderline elevation at home - keep meds same09/03/2025Hypothyroid (ICD-10 - E03.9)09/03/2025Lumbar stenosis (ICD-10 - M48.061)09/03/2025Hypercholesteremia (ICD-10 - E78.00)09/03/2025GERD (gastroesophageal reflux disease) (ICD-10 - K21.9)09/03/2025Insomnia (ICD-10 - G47.00)09/03/2025Radiculopathy, lumbosacral region (ICD-10 - M54.17) Plan Of Treatment Pending Test Test Name Order Date CMP (COMPLETE METABOLIC PANEL) 4 HEMOGLOBIN A1C (GLYCO) 08/28/2024 HEMOGLOBIN A1C (GLYCO) 09/03/2025 IRON, TOTAL 09/03/2025 IRON, TOTAL 08/28/2024 LIPID PANEL (CHOL/TRIG/HDL/LDL) 08/28/20 24 LIPID PANEL (CHOL/TRIG/HDL/LDL) 09/03/20 25 CBC WITH DIFF 08/28/2024 VITAMIN D, 25 LEVEL (TOTAL) 08/28/2024 VITAMIN D, 25 LEVEL (TOTAL) 09/03/2025 MRI Shoulder LT w/o contrast 09/15/2023 THYROID PANEL (T4/TSH/FREE T3) 5 THYROID PANEL (T4/TSH/FREE T3) 4 CMP (COMP MET REYNA) w/eGFR CKD-EPI 2024 CBC WITH DIFF 09/03/2025 Insurance Providers Payer Name Payer Address Payer Phone Subscriber Number Group Number Insured Name Patient Relationship to Insured Coverage Start Date Coverage End Date [place] [address] [place] [address] [id number] Hedy Chris - patient is the insured[facility] MEDICARE SUPPLEMENTPO [address] [place] [id number], PaulSamanthapauline - patient is the insured Medical (General) History Medical History History ICD Code Lumbar stenosis M48.061 Blepharospasm G24.5 Iron deficiency anemia D50.9 Macrocytic anemia D53.9 Lumbosacral radiculopathy M54.17 Leukopenia D72.819 Diverticulosis, sigmoid K57.30 Essential Hypertension I10 Hyperlipemia E78.5 Hemifacial spasm G51.39 Insomnia G47.00 Rosacea L71.9 Raynaud disease I73.00 Osteoarthritis M19.90 Polyneuropathy G62.9 Surgical History Surgery Date(Month/Year) Ganglion Cyst- Left Hand Removal Sebaceous Cyst from BackGanglion Cyst- Right HandRemoval Celanzion EyelidLeft total knee arthroplasty- Dr. Borden11/30/2023Ureathal StretchBone Marrow BiopsyCataract Removal- BilateralHip Replacement- RightKnee Arthroplasty- Left KneePosterior Lumbar Interbody FusionOrthoscopic Surgery- Right Knee TonsilectomyRemoval Plantar's Wart- Right FootRemoval Cyst Top of HeadD & C X 2 Abdominal AblationHysterectomyHospitalization History Reason Date(Month/Year) see above
[2025-09-11 08:40] LABS: Hematocrit 35.8 % (36.0-48.0); Hemoglobin 11.7 g/dL (12.0-16.0); Mean Corpuscular HGB Conc 32.7 g/dL (29.9-35.2); Mean Corpuscular Hemoglobin 34.1 pg (26.7-34.0); Mean Corpuscular Volume 104.4 fL (81.0-99.0); Platelet Count 175 10^3/uL (150-450); Red Blood Count 3.43 10^6/uL (4.20-5.40); White Blood Count 3.1 10^3/uL (4.0-11.0)
[2025-09-11 09:03] LABS: Basophils Abs Manual 0.00 10^3/uL (0.00-0.10); Basophils Percent Manual 0.0 % (0.2-2.0); Eosinophils Absolute Manual 0.06 10^3/uL (0.00-0.70); Eosinophils Percent Manual 2.0 % (0.9-7.0); Lymphocytes Absolute Manual 0.58 10^3/uL (1.20-3.80); Lymphocytes Percent Manual 19.0 % (20.5-60.0); Monocytes Absolute Manual 0.27 10^3/uL (0.30-0.80); Monocytes Percent Manual 9.0 % (1.7-12.0); Segmented Neut Absolute Manual 2.17 10^3/uL (1.4-6.5); Segmented Neutrophils % Manual 70.0 (43.0-75.0)
[2025-09-11 09:45] LABS: Iron 79.0 ug/dL (50.0-170.0)
[2025-09-11 09:58] LABS: Alanine Aminotransferase 36 U/L (14-59); Albumin Globulin Ratio 1.3; Albumin Level 3.9 g/dL (3.4-5.0); Alkaline Phosphatase 51 U/L (46-116); Anion Gap 12.4; Aspartate Amino Transferase 36 U/L (15-37); Blood Urea Nitrogen 19.0 mg/dL (7.0-18.0); Calcium 9.0 mg/dL (8.5-10.1); Carbon Dioxide 29.8 mmol/L (21.0-32.0); Chloride 104 mmol/L (98-107); Cholesterol 196 mg/dL (<=200); Estimated GFR (African America >60 (>=60 mL/min/1.73m^2); Estimated GFR (Non-African Ame >60 (>=60 mL/min/1.73m^2); Free T3 2.91 pg/mL (2.18-3.98); Globulin 3.1 g/dL; Glucose 96 mg/dL (74-106); HDL Cholesterol 57 mg/dL (40-60); Potassium 4.2 mmol/L (3.5-5.1); Sodium 142 mmol/L (136-145); Thyroid Stimulating Hormone 1.805 uIU/mL (0.358-3.740); Total Protein 7.0 g/dL (6.4-8.2); Triglycerides 116 mg/dL (<=150); VLDL CHOLESTEROL 23.2 mg/dL
== END 2025-09-11 08:07 | disposition home or self-care (01) ==
LOC: LAB 08:09
PROVIDERS: PCP Family Medicine; Visit Provider Family Medicine
DX: E03.9 Hypothyroidism, unspecified (principal); E78.00 Pure hypercholesterolemia, unspecified; K21.9 Gastro-esophageal reflux disease without esophagitis; G47.00 Insomnia, unspecified; I10 Essential (primary) hypertension; R73.09 Other abnormal glucose; D64.9 Anemia, unspecified; R39.15 Urgency of urination; M54.16 Radiculopathy, lumbar region; S06.0X9A Concussion with loss of consciousness of unspecified duration, initial encounter; I73.00 Raynaud's syndrome without gangrene; F03.90 Unspecified dementia, unspecified severity, without behavioral disturbance, psychotic disturbance, mood disturbance, and anxiety; E53.8 Deficiency of other specified B group vitamins
CPT/HCPCS: 36415; 80053; 80061; 82306; 83036; 83540; 84436; 84443; 84481; 85007; 85027

== ENCOUNTER 2025-11-06 06:34 | Outpatient (OUT) | payer MEDICARE, BC, SELFPAY ==
--- OUTSIDE RECORDS SUMMARY | 2025-11-06 06:37 | XMS_ITS | Clinical Summary ---
Author Organization [facility] Address [address] [place] [address] Care Team Providers Care Curriculum Designer Name Role Phone Yulisa Batres MD Primary Care Provider [phone] Celso Delatorre MD Unavailable [phone] Allergies Active AllergyReactionsCriticalityNoted DateCommentsAlendronateRashMedium 08/29/2018 Other Reaction(s): Abdominal Discomfort, Dyspepsia, Indigestion, Not available GabapentinNausea And Vomiting,Nausea Only,EefgIlcdal83/24/2018 Other Reaction(s): Not available Gabapentin (Once-Daily)High08/30/2018 Other Reaction(s): Allergy, Blistered Skin, Blisters, Not available Caused the skin on her lips to peel and nervousness Napitafjzvbq13/18/2023 Tendon rupture OxcarbazepineNausea And Vomiting,YgxgYxjtrr41/24/2018 Other Reaction(s): Confusion, Not available Sulfamethoxazole-Udxykcvrcfxd29/05/2021 Other Reaction(s): Joint pain, Muscle weakness, Myalgia [...] time each day at the same timeActive Abikdgxxoku-Jnvgkhsrb-Ewm C-Mn (Glucosamine 1500 Complex) capsule as directed [...] methylPREDNISolone (Medrol Dospak) 4 MG tablets TAKE RNFXSUKU54/17/2023ctive predniSONE (Deltasone) 5 MG tablet Take 5 [...] Active Problems ProblemNoted DateDiagnosed DateLong-term use of fowgxgawxschuuwqsy08/24/2024Left posterior capsular jyziyogleijxl19/24/9001Titolkorjecyh32/18/2024Trigeminal ozejdjwyv49/18/2024rthritis, lumbar spine04/24/20247299Dehxjqvwodyf00/18/2024Facial haukqtfj06/18/9273Qpcllslzkv66/18/2024Spinal stenosis excluding cervical region 04/24/2024 Overview (04/24/2024): Lumbar region , without neurogenic claudication PVD (peripheral vascular disease)04/24/2024eripheral pwnlthmikg75/18/2024Small fiber ypmwxpvbtr21/18/5784Rnkunswexewxwu78/18/2024 Overview (04/24/2024): The patient reports asymmetric paresthesias in the distal bilateral lower extremities (left more significant than right) which have not progressed since her prior appointment at [facility]. She has historically been diagnosed with polyneuropathy, [...] neuropathy - Fall precautions discussed Hemifacial spasm04/24/2024Lumbar llbpwjfadkdrt35/18/2024Spondylolisthesis 04/24/20244224Djlpzezo33/18/2024Muscle spasm04/24/2024Facet arthritis of lumbar fvscla1304/24/20245632Vsmxmgmxy99/18/2024egenerative disc disease, tdjgfe2204/24/2024 Disturbance of skin rootnvste88/18/2024adiculopathy, lumbosacral region 04/24/2024Sciatica of left side04/24/2024Lumbar spinal lvtypbrl34/18/2024 Overview (04/24/2024): The patient has a history [...] note, she also follows with rheumatology Lumbar qocpqakzplg41/18/2024Lumbar facet vfxicngvsnp60/18/2024aresthesias 04/24/2024 Overview (04/24/2024): The patient presents today [...] nonexudative age-related macular degeneration of both eyes 3Dry eyes07/13/2023lepharitis of upper and lower eyelids of both eyes 07/13/2023 Resolved Problems ProblemNoted DateDiagnosed DateResolved DateBilateral posterior capsular pennlfwlnphfr78/06/202309/ Encounters DateTypeDepartmentCare AzaxYgjbnkgtyvb94/30/2025 8:30 AM EDTProcedure Visit [facility] [address] [place] [address] Elie Tello DPM Other polyneuropathy (Primary Dx); Pain due to onychomycosis of toenails of both feet09/05/2025amboo flowsheet [facility] [address] [place] [address] Elie Tello DPM 09/05/20257981Mhbgey43/23/2025Travelfrom Last 3 Months Immunizations ImmunizationAdministration DatesNext DuePneumococcal Conjugate PCV 13111/11/2017 Family History Medical HistoryRelationNameCommentsCancerFatherEarl DickCancerMaternal GrandfatherFred BaumanCancerMotherMary [...] daysCommentsUnknownSex and Gender InformationValueDate RecordedSex Assigned at VnyvpWeyylv49/24/2023 3:52 PM EDT Legal PuaPdvzct79/01/2023 8:32 PM EDTGender VsacqfqxXiojum71/24/2023 3:52 PM EDT Sexual DnggdehpukpJqmeemwg21/24/2023 3:52 PM EDT Last Filed Vital Signs Vital SignReadingTime TakenCommentsBlood Jypkruvr079/9804 9:15 AM EDT Yylhs4069 9:15 AM EDTTemperature--Respiratory Xeyc9922 8:25 AM EDTOxygen Hsijgbzblz15%02/28/2025 9:15 AM EDTInhaled Oxygen Concentration-- Pdhjpp977 kg (222 lb)09/05/2025 8:25 AM EHGAlfsyw218.7 cm (5' 8 )09/05/2025 8:25 AM EDTBody Mass Index33.7509/05/2025 8:25 AM EDT Plan of Treatment DateTypeDepartmentCare Team (Latest Contact Info)Euplnekqtbf42/22/2026 8:30 AM ESTProcedure Visit [facility] [address] [facility] [address] [place] [address] Elie Tello, DPM [address] [facility] [address] [place] [address] 02/19/2026 9:00 AM EDTOffice Visit [facility] [address] [place] [address] Yo Gilmore DO [address] [place] [address] Health MaintenanceDue DateLast DoneCommentsCT Nuoqqcydzckk1953Colonoscopy 3Colorectal Cancer Gnjkmpzjf1953FIT-DNA1953FIT1955 FOBT1955 5804Yfokvghrjgyhx08/12/5372Dsajiyvoi54Influenza Vaccine (#1)510/, 08/25/2023, 08/23/2022, Additional history existsPneumococcal Vaccine: 65+ EacbeTeoqlejim31/18/2025, 09/11/2018 Procedures Procedure NamePriorityDate/TimeAssociated DiagnosisCommentsBI MAMMOGRAM SCREENING TOMOSYNTHESIS AUVPJXXODYktggmw79/25/2022 from Last 3 Months or Most Recently Relevant to Health Maintenance Results * Bilateral screening mammogram with tomosynthesis (08/31/2022)Anatomical Region LateralityModalityBreastBilateralMammographySpecimen (Source)Anatomical Location / LateralityCollection Method / VolumeCollection TimeReceived Time Narrative 08/31/2022 12:00 AM EDT PERFORMED AT [facility] LOCATION:[address] Patient: ? DIVINE Erickson. ? Exam Date: ? 08/31/2022 : ? 1955 ?Gender:F ? Ordering : ? DR JEAN-PAUL MURPHY . ? Admission #: ? [id number] Family : ? DR YULISA BATRES . ? Order #: ? [id number] ? CLICK HERE TO VIEW EXAM RADIOLOGY [...] cancer at age 48. LOCATION: ? [facility] BREAST COMPOSITION: ? Scattered areas fibroglandular density. [...] Note CONVERSION, GENERIC - 05/13/2023 PERFORMED AT [facility] LOCATION:[address] Patient: DIVINE Holden Exam Date: 08/31/2022 : 1955 Gender:F Ordering : DR JEAN-PAUL MURPHY . Admission #: [id number] Family : DR YULISA BATRES . Order #: [id number] CLICK HERE TO VIEW EXAM RADIOLOGY REPORT [...] withthyroid cancer at age 48. LOCATION: [facility] BREAST COMPOSITION: Scattered areas fibroglandular [...] on 08/31/2022 at 11:14 Authorizing ProviderResult TypeResult StatusJean-Paul Murphy MDIMG BI PROCEDURES Final Result from Last 3 Months or Most Recently Relevant to Health [place] [address] Care Teams Team MemberRelationshipSpecialtyStart DateEnd Yulisa Batres MD [address] [place] [address] PCP - General07/06/23 Celso Delatorre MD [address] [facility] [address] [place] [address] Referring PhysicianRheumatology07/31/24
--- OUTSIDE RECORDS SUMMARY | 2025-11-06 06:37 | XMS_ITS | Clinical Summary ---
Author Organization [facility] Address [address] [place] [address] Care Team Providers Care Manager Heavy Duty Name Role Phone Unavailable Primary Care Provider Unavailabl e Social History Tobacco UseTypesPacks/DayYears UsedDateSmoking Tobacco: Never Assessed CommentsUnknownSex and Gender InformationValueDate RecordedSex Assigned at Not on fileLegal DhcOrrxmn62/29/2022 10:00 PM EDTGender IdentityNot on file Sexual OrientationNot on file Last Filed Vital Signs Vital SignReadingTime TakenCommentsBlood Pressure--Pulse--Temperature-- Respiratory Rate--Oxygen Saturation--Inhaled Oxygen Concentration--Cwueii17.9 kg (218 lb)03/10/2020 1:17 PM NROWusduo682.7 cm (5' 8 )03/24/2020 10:45 AM EDTBody Mass Index33.15003/10/2020 1:17 PM EDT Plan of Treatment Not on file
--- OUTSIDE RECORDS SUMMARY | 2025-11-06 06:37 | XMS_ITS | Clinical Summary ---
Author Organization [facility] Address [address] [place] [address] Care Team Providers Care Net Programmer Name Role Phone Stephen Begum Primary Care Provider + [phone] Medications MedicationSigDispense QuantityRefillsLast FilledStart DateEnd DateStatus FOLBIC [...] Take 500 mg by mouth once daily.Active Pelican-3 Fatty Acids-Vitamin E (FISH OIL) 1,000 mg cap Take 1 capsule by mouth.Active Social History Tobacco UseTypesPacks/DayYears UsedDateSmoking Tobacco: Never Assessed CommentsUnknownSex and Gender InformationValueDate RecordedSex Assigned at Not on fileLegal RclIrhauv13/16/2016 2:47 PM ESTGender IdentityNot on fileSexual OrientationNot on file Plan of Treatment Health MaintenanceDue DateLast DoneCommentsAnxiety Zfuoculio58/12/1971Depression Hrubqcyvz47/12/1971Hepatitis C Cotcqltni91/12/1971DTaP,Tdap,Td Vaccine (1 - Tdap)1972Mammogram Dsglpcdpp51/12/1993CT Jzwxoxbizmce28/12/1998Cologuard (FIT-DNA)07/19/19981662Ndwrbcboeww95/12/1998Colorectal Cancer Qyahkabqb63/12/1998 Diabetes Yiwistpcx34/12/1998Fecal Occult Blood1998Lipid Screening 07/19/19984482Ynxmrvfebrrwv55/12/1998Pneumococcal Vaccine: 50+ (1 of 1 - PCV) 2003Shingrix Vaccine (1 of 2)2003Bone Density Kopjeysgr08/12/2018 Advance Directive Ciwyrybtkf97/01/2025ovid-19 Vaccine (1 - 2024-26 season) 2025Influenza Vaccine (#1)2025RSV Vaccine (1 - 1-dose 75+ series) 2028 Care Teams Team MemberRelationshipSpecialtyStart DateEnd Date Stephen Begum DO PCP - GeneralFamily Tuxmlygt53/16/16
--- OUTSIDE RECORDS SUMMARY | 2025-11-06 06:37 | XMS_ITS | Clinical Summary ---
Author Organization [facility] Address [address], [address] [place] [address] Care Team Providers Care Manager Of [facility] Name Role Phone Unavailable Primary Care Provider Unavailabl e Social History Tobacco UseTypesPacks/DayYears UsedDateSmoking Tobacco: Never Assessed CommentsUnknownSex and Gender InformationValueDate RecordedSex Assigned at Not on fileLegal VtbCjrtyo73/16/2021 3:51 PM EDTGender IdentityNot on fileSexual OrientationNot on file Plan of Treatment Not on file Insurance
--- OUTSIDE RECORDS SUMMARY | 2025-11-06 06:37 | XMS_ITS | Clinical Summary ---
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 Role Phone Stevie Hoyos MD Primary Care Provider [phone] Allergies Active AllergyReactionsCriticalityNoted DateCommentsAlendronateAbdominal Discomfort,WoxitprwwHgeqdu97/24/2018Sulfamethoxazole-TrimethoprimMyalgia 03/11/20210031EnrxhqydzfhvzCrtu36/18/2023 Other reaction(s): Allergy critical , tendon rupture GabapentinNausea and ViwpgafpAribqz14/24/2018Gabapentin (Once-Daily)BlistersHigh 08/30/2018 Caused the skin on her lips to peel and nervousness Funavfngzspa36/18/2023 Tendon rupture OxcarbazepineNausea and BwlpggpjRmpobr87/24/2018SulfamethoxazoleWeakness 05/07/20213932RpulhvkdyrzpFlokiuxo04/01/2021 Medications MedicationSigDispense QuantityRefillsLast FilledStart DateEnd DateStatus ibandronate [...] times daily October 01, 2020 10:38am 10-01-2020 [facility] ([id number])10/01/2020Active Doxazosin 4 MG tablet Take 1 tablet [...] tablet Take 1 tablet by mouth daily.Active Kjztuvfhkoj-Qjyewavqg-Lnm C-Mn (Glucosamine 1500 Complex) capsule Take by [...] Active Problems ProblemNoted DateDiagnosed DateS/P total knee ulekowctyqnb51/ Osteoarthritis of right knee04/26/2023ellulitis of left coxguo5704/20/2023 04/20/2023hronic mfwjsysj23Hyperlipidemia Rybzdqptaykpnbb47Raynaud's czmknujkzg26 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 11/21/2018 Assessment & Plan (11/21/2018 11:49 AM EST): For likely surgical intervention PT OT social service agency director discharge planning DVT prophylaxis per orthopedic surgery recommendation Synovial swnbrk1211/21/2018Obesity: body mass index of 30.0-34.9007/19/2017 Assessment & Plan (11/21/2018 11:48 AM EST): Lifestyle changes and dietary modifications Patellar tendon sbmjdal7507/19/2017Benign egzujaipufjr83/12/2017 Assessment & Plan (11/21/2018 11:49 AM EST): Continue outpatient therapy Add when necessary for systolic blood pressure greater than 160 Rheumatoid iwdaxcaeh96/12/2017 Assessment & Plan (11/21/2018 11:49 AM EST): [...] steady place to sleep or slept in [place] (including now)?No11/29/2023CommentsUnknownSex and Gender InformationValueDate RecordedSex Assigned at BirthNot on fileLegal SexFemale 01/04/2017 4:08 PM ESTGender IdentityFemaleSexual RcfmzxiqkgdGkxezfrr08/19/2025 8:16 AM EST Last Filed Vital Signs Vital SignReadingTime TakenCommentsBlood Gbzeulyi602/61012/02/2023 7:33 AM EST Jhcuq405712/02/2023 7:33 AM IGBSwncooqdxdb41.4 ??C (97.5 ??F)05/31/2024 9:44 AM EDTRespiratory Hlfn591612/02/2023 7:33 AM ESTOxygen Xwlykzuhve18%12/02/2023 8:00 AM ESTInhaled Oxygen Concentration--Tkvkie752 kg (236 lb)11/28/2024 11:19 AM EST Hobvgt852.2 cm (5' 7 )11/28/2024 11:19 AM ESTBody Mass Index36.9611/28/2024 11:19 AM EST Plan of Treatment DateTypeDepartmentCare Team (Latest Contact Info)Fxntogvrxfj20/21/2026 10:00 AM ESTOffice Visit [facility] [address] [facility] [place] [address] New Borden MD [address] [place] [address] [place] Green APRN-MARTY [address] [place] [address] Health MaintenanceDue DateLast DoneCommentsDEXA SCAN LKPKBENAXD1953 HEPATITIS C VIRUS UAFSGBEDM93/12/1583ZRMYWRG1953TDAP (ADULT)1972 CERVICAL CANCER SCREENING XLCQDQTKFO76/12/1974LIPID JQVJXIJUD50/12/1993 COLORECTAL CANCER SCREENING HGEHNVBTVH23/12/1998ZOSTER (SHINGLES) VACCINE (1 of 2)2003MAMMOGRAM SCREENING MNELNMEHLD71/25/202310/OTASSIUM 5012/01/2023, 11/30/2023, 11/03/2023, Additional history existsCOVID-19 VACCINE (2024- season), 08/25/2023, 08/23/2022, Additional history existsINFLUENZA VACCINE (#1), 08/25/2023, 08/23/2022, Additional history existsRSV VACCINE (1 - 1-dose 75+ series) 2028PNEUMOCOCCAL VACCINE LAFPWYTjvxareqz26/18/2025, 09/11/2018HEP B VACCINEAged OutNo longer eligible based on patient's age to complete this topic Medical Devices ImplantedTypeAreaManufacturerDevice IdentifierShelf Expiration DateModel / Serial / LotProlite Mesh 25.4 Cm X 35.5cm Implanted:Qty: 1 on 11/21/2018 by New Borden MD at [facility] Joint Left: WawzKQCTLO54/25/2023/ [id number] / [id number] Knee System Revision Distal Femoral Augment Size 7 12mm Cemented Implanted:Qty: 1 on 11/29/2023 by New Borden MD at [facility] Left: KneeDEPUY ORTHOPAEDICS INC//[id number] / / [id number] Mesh Polypropylene Nonabsorbable Synthetic Surgical Mesh 12 X 12 Implanted:Qty: 1 on 11/29/2023 by New Borden MD at [facility] Left: Knee09/06/2027/ / SMBHZHAttformerly [facility] Knee System Revision Pressfit Stem 12mm X 60mm Implanted:Qty: 1 on 11/29/2023 by New Borden MD at [facility] Left: KneeDEPUY ORTHOPAED[employer] INC04/06/[id number] / / [id number] Knee System Revision Distal Femoral Augment Size 7 12mm Cemented Implanted:Qty: 1 on 11/29/2023 by New Borden MD at [facility] Left: KneeDEPUY ORTHOP[employer] INC05/06/[id number] / / [id number] Knee System Revision Tibial Base Rotating Platform Size 5 Cemented Implanted:Qty: 1 on 11/29/2023 by New Borden MD at [facility] Left: KneeDEPUY ORTHOP[employer] INC06/06/[id number] / / [id number] Knee System Revision Tibial Sleeve Poracoat Partially Coated 37mm Implanted:Qty: 1 on 11/29/2023 by New Borden MD at [facility] Left: KneeDE[employer]//[id number] / / [id number] Knee System Revision Femoral Sleeve Porocoat Partially Coated 40mm Implanted:Qty: 1 on 11/29/2023 by New Borden MD at [facility] Left: KneeDE[employer]//[id number] / / [id number] Knee System Revision Posterior Femoral Augment Size 7 4mm Cemented Implanted:Qty: 2 [facility] 11/29/[facility]: KneeDEPUY ORTHOPAEDICS [id number] / / [id number] Knee System Revision Crs Femoral Size 7 Left Cemented Implanted:Qty: 1 on 11/29/2023 by New Borden MD at [facility] Joint Left: KneeDEPUY ORTHOPAED[employer] [id number] / / [id number] R 1x40 Single - [id number] Implanted:Qty: 1 [facility] 11/21/[facility]/ / [id number] R+G 1x40 Single With Gentamicin - [id number] Implanted:Qty: 4 on 11/29/20[facility] [id number] / / [id number] R 1 X 40 - [id number] Implanted:Qty: 2 on 04/26/2023 by New Borden MD at [facility]: Knee 10/06/2027/ [id number] / [id number] Knee System Revision Tibial Base Fixed Bearing Implanted:Qty: 1 on 04/26/2023 by New Borden MD at [facility]: Knee DEPUY ZVQVRLF2111/06/2032/ 1506-40-005 / [id number] Femoral Posterior Stabilized Implanted:Qty: 1 on 04/26/2023 by New Borden MD at [facility]: Knee DEPUY YVHDRSU1709/06/2032/ 1504-10-207 / [id number] Patella Medialized Dome Implanted:Qty: 1 on 04/26/2023 by New Borden MD at [facility]: Knee DEPUY QYXNGUD0509/06/2027/ 1518-20-038 / [id number] Cancellous Bone Screw Implanted:Qty: 1 on 04/26/2023 by New Borden MD at [facility]: Knee DEPUY XFTEGNM5903/06/2027/ 1217-25-500 / [id number] Tibial Insert Fixed Bearing Posterior Stabilized Implanted:Qty: 1 on 04/26/2023 by New Borden MD at [facility]: Knee DEPUY IQKWRIL4006/06/2027/ 1516-40-708 / [id number] Knee System Revision Pressfit Stem Implanted:Qty: 1 on 11/29/2023 by New Borden MD at [facility]: Knee DEPUY VTICWVL8802/05/2032/ 1513-16-060 / [id number] R & G Bone Cement High-Viscosity With Gentamicin - [id number] Implanted:Qty: 1 on 11/29/2023 by New Borden MD at [facility]: Knee 01/04/2026/ [id number] / [id number] Knee System Revision Crs Rotating Platform Insert Implanted:Qty: 1 on 11/29/2023 by New Borden MD at [facility]: Knee DEPUY ZBAZSPE1504/06/2028/ 1517-10-712 / [id number] Procedures Procedure NamePriorityDate/TimeAssociated DiagnosisCommentsBASIC METABOLIC PANEL Today12/01/2023 4:51 AM EST from Last 3 Months or Most Recently Relevant to Health Maintenance Results * (ABNORMAL) BASIC METABOLIC PANEL (12/01/2023 4:51 AM EST)ComponentValueRef RangeTest MethodAnalysis TimePerformed AtPathologist UyedqsibgYkmzkvj602(H)70 - 100 MG/DL[address]Comment: NORMAL <100 mg/dL PREDIABETES 101-126 mg/dL DIABETES 126 mg/dL or higher MNQ511 - 20 MG/DL[address] CREATININE SERUM0.50(L)0.70 - 1.20 MG/DL[address]SODIUM136(L)137 - 145 MMOL/[address]assium3.4(L)3.5 - 5.1 MMOL/[address]CHLORIDE10698 - 107 MMOL/[address]Comment:Please note: Triglyceride levels of 600mg/dL or higher may positively bias chloride results by approximately 2.1 mmolCARBON DIOXIDE (CO2)2322 - 30 MMOL/[address]AN[address] FJQ3YBWV/[address]CALCIUM8.48.4 - 10.2 MG/DL[address]ESTIMATED GFR, NON ZSXF418 ml/min/1.73sq.[address]ESTIMATED GFR, OEXBESAW948qp/min/1.73sq.[address]GFR COMMENTAverage GFR for 70+ years old = 75.[address]Comment: Chronic Kidney disease, GFR = <60. Kidney failure, GFR = <15. The GFR estimate is not adjusted for extreme body surface area or acute process, nor has it been validated for women or ethnic groups other than and . Specimen (Source)Anatomical Location / LateralityCollection Method / Volume Collection TimeReceived NrjlBkrkw53/25/2024 4:51 AM EST12/01/2023 5:27 AM EST Narrative Authorizing ProviderResult TypeResult StatusDeshawn Sunshine MDCHEMISTRY ORDERABLES Final ResultPerforming OrganizationAddressCity/State/ZIP CodePhone Number [address] [address] from Last 3 Months or Most Recently Relevant to Health Maintenance Insurance Advance Directives For more information, please contact: [phone] (7:30 AM - 6PM [facility], Tuesday-Tuesday) * Full Code (Latest [...]
--- OUTSIDE RECORDS SUMMARY | 2025-11-06 06:37 | XMS_ITS | Patient Health Record ---
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 Name Role Phone Howard Batres Primary Care Provider Allergies Allergen (clinical drug ingredient) Drug/Non Drug Allergy documented on EMR Reaction Allergy Type Onset Date Status alendronate Alendronate Sodium Indigestion Drug Allergy Activesulfamethoxazole / trimethoprimBactrimMuscle WeaknessDrug AllergyActive gabapentinGraliseBlistered SkinDrug AllergyActivegabapentinGabapentinNauseaDrug AllergyActiveoxcarbazepineOxcarbazepineConfusionDrug AllergyActive Results Component Value Reference Range Notes MR lumbar spine wo con Reviewed date:05/07/2025 06:48:08 PM Interpretation: Performing Lab: Notes/Report: Source Facility: [place] [address] [place] [address] Magnetic Resonance Report Signed Patient: DANYELLE CHRIS MR#: [id number] : 1955 Acct:[id number] Age/Sex: 69 / F ADM Date: 05/07/25 Loc: MRI Attending Dr: Addis Palmer NP Ordering Physician: Addis Palmer NP Date of Service: 05/07/25 Procedure(s): MR lumbar spine wo con Accession Number(s): [id number] cc: Addis Palmer NP; Yulisa Batres M.D. [facility] [place] [id number] Patient Name: DANYELLE CHRIS MRN: [facility]:[id number] date: 1955 Sex: F Assigned Patient Location: MRI Current Patient Location: MRI Accession/Order Number: [id number] Exam Date: 05/07/2025 15:04 Report Date: 05/07/2025 [...] L1-L2. Impression dictated by: Clem Castellanos Jr., DGwenOGwen 05/07/2025 3:10 PM Dictation Location: [place] [address] Electronically authenticated by: [id number] Y Date: 05/07/2025 15:10 Dictated By: Clem Castellanos M.D. Signed By: 05/07/25 1512 DD/ 1510 TD/TT: [employer] Curer: C4+C3 Reviewed date:08/16/2025 08:44:19 AM Interpretation: Performing Lab: Notes/Report: [facility] , Complement C3, Serum 137 82-167 mg/dL Complement C4, Tzjaw7350-17 mg/dL Performed at: [facility] [address] [id number] Machine Tool Dresser: Jann Darnell PhD, Phone: [phone] Performing Lab:see noteLC - [facility] LBFREE T3 Reviewed date:09/11/2025 01:02:02 PM Interpretation: Performing Lab: Notes/Report: [facility] ,Free T32.912.18-3.98 pg/mLPerforming Lab:see noteML - [facility] LB LIPID PROFILE Reviewed date:09/11/2025 01:02:02 PM Interpretation: Performing Lab: Notes/Report: [facility] ,Vxglddzbhueep823<=150 mg/fEQatdhtteqdy216<=200 mg/dLHDL Thizgjrfjhl0450-34 mg/dL > or =60 mg/dl - LOW CARDIOVASCULAR RISK <40 mg/dl - HIGH CARDIOVASCULAR RISK LDL Cholesterol Idzqgdneib981.8 <100 mg/dl OPTIMAL 100-129 mg/dl NEAR OR ABOVE OPTIMAL 130-159 mg/dl BORDERLINE HIGH 160-189 mg/dl HIGH >190 mg/dl VERY HIGH VLDL VEEPIPECGOP83.2Chol HDL Ratio3.4 3.3 - 4.4 LOW RISK 4.4 - 7.1 AVERAGE RISK 7.1 - 11.0 MODERATE RISK >11.0 HIGH RISK Performing Lab:see noteML - [facility] LBT4 Reviewed date:09/11/2025 01:02:02 PM Interpretation: Performing Lab: Notes/Report: [facility] ,T4 Thyroxine7.304.80-13.90 ug/dLPerforming Lab:see noteML - [facility] LBTSH Reviewed date:09/11/2025 01:02:02 PM Interpretation: Performing Lab: Notes/Report: [facility] ,Thyroid Stimulating Hormone1.8050.358-3.740 uIU/mLPerforming Lab:see noteML - [facility] LBManual Differential Reviewed date:09/11/2025 01:02:02 PM Interpretation: Performing Lab: Notes/Report: [facility] ,Segmented Neutrophils % Fwjjwz28.043.0-75.0Lymphocytes Percent Ozwcrs14.020.5- 60.0 %Monocytes Percent Manual9.01.7-12.0 %Eosinophils Percent Manual2.00.9-7.0 %Basophils Percent Manual0.00.2-2.0 %Segmented Neut Absolute Manual2.171.4-6.5 10 3/uLLymphocytes Absolute Manual0.581.20-3.80 10 3/uLMonocytes Absolute Manual 0.270.30-0.80 10 3/uLEosinophils Absolute Manual0.060.00-0.70 10 3/uLBasophils Abs Manual0.000.00-0.10 10 3/uLPerforming Lab:see noteML - [facility] LBVITAMIN D 25 [place] Reviewed date:09/11/2025 01:02:02 PM Interpretation: Performing Lab: Notes/Report: [facility] ,Vitamin D51.7 <20 ng/mL Vit D deficient 20-<30 ng/mL Vit D insufficient 30-100 ng/mL Vit D sufficient >100 ng/mL Potential Toxicity Performing Lab:see noteML - [facility] LBPROF 14(COMP METB) Reviewed date:09/11/2025 01:02:02 PM Interpretation: Performing Lab: Notes/Report: [facility] ,Mzplhr270652-388 mmol/LPotassium4.23.5-5.1 mmol/NZewqmiwr41488-717 mmol/LCarbon Ptdqqsq76.821.0-32.0 mmol/LAnion Gap12.1Vtxpxal8558-174 mg/dLBlood Urea Nitrogen 19.07.0-18.0 mg/dLCreatinine0.660.55-1.02 mg/dLEstimated GFR ( Stephenie>60 >=60 mL/min/1.73m 2Estimated GFR (Non- Rosa>60>=60 mL/min/1.73m 2BUN Creatinine Ratio28.7Lcxjacg5.08.5-10.1 mg/dLBilirubin Total0.90.2-1.0 mg/dL Aspartate Amino Nbttpnnaqnv8220-05 U/LAlanine Izewmfktzngccdkx0114-20 U/L Alkaline Gqgglyqdvcb7563-171 U/LTotal Protein7.06.4-8.2 g/dLAlbumin Level3.93.4- 5.0 g/dLGlobulin3.1Albumin Globulin Ratio1.3Performing Lab:see noteML - [facility] LBIRON Reviewed date:09/11/2025 01:02:02 PM Interpretation: Performing Lab: Notes/Report: [facility] ,Iron79.050.0-170.0 ug/dLPerforming Lab:see note - [facility] LB GLYCOHEMOGLOBIN A1C Reviewed date:09/11/2025 01:02:02 PM Interpretation: Performing Lab: Notes/Report: [facility] ,Glycohemoglobin A1C5.24.5-6.2 % ADA RECOMMENDED LIMIT 4.0 - 6.0 ADA THERAPEUTIC TARGET < 7.0 ACTION SUGGESTED > 7.0 Estimated Average Wwenlgw249Ktrtnykryu Lab:see note - [facility] LB CBC AUTO DIFF Reviewed date:09/11/2025 01:02:02 PM Interpretation: Performing Lab: Notes/Report: [facility] ,White Blood Count3.14.0-11.0 10 3/uLRed Blood Count3.434.20-5.40 10 6/uL Imorkhpxom32.712.0-16.0 g/vVBahudougai38.836.0-48.0 %Mean Corpuscular Volume 104.481.0-99.0 fLMean Corpuscular Zreprttodz89.126.7-34.0 pgMean Corpuscular HGB Conc32.729.9-35.2 g/dLRed Cell Distribution Width13.511.0-15.0 %Platelet Count 123632-079 10 3/uLMean Platelet Volume8.89.5-13.5 fLPerforming Lab:see noteKindred HealthcareMM tomosynthesis screening BI Reviewed date:09/05/2025 05:01:42 PM Interpretation: Performing Lab: Notes/Report: Source Facility: [place] [address] Mammography Report Signed Patient: DANYELLE CHRIS MR#: [id number] : 1955 Acct:[id number] Age/Sex: 70 / F ADM Date: 09/05/25 Loc: MAMMO Attending Dr: Yulisa Batres M.D. Ordering Physician: Yulisa Batres M.D. Results: Date of Service: 09/05/25 Follow Up: Procedure(s): MM tomosynthesis screening BI Accession Number(s): [id number] cc: Yulisa Batres M.D. Patient Name: DANYELLE CHRIS MR#: [id number] : 1955 Exam Date: 09/05/2025 Ordering Doctor: [...] thyroid cancer at age 48. LOCATION: [facility] BREAST COMPOSITION: There are scattered areas of fibroglandular density. FINDINGS: DIAGNOSTIC CATEGORY 1--NEGATIVE. RIGHT BREAST: No significant suspicious finding. LEFT BREAST: No significant suspicious finding. RECOMMENDATIONS: ROUTINE MAMMOGRAM AND CLINICAL EVALUATION IN 12 MONTHS. Dictated by: Clem Castellanos DO on 09/05/2025 at 15:50 Approved by: Clem Castellanos DO on 09/05/2025 at 15:51 Dictated By: Clem Castellanos M.D. Signed By: 09/05/25 1553 DD/ 1552 TD/TT: [employer] Curer:Complement, Total (CH50) Reviewed date:08/17/2025 12:39:13 PM Interpretation: [...] determine out of range values. Performed at: [facility] [address] [id number] Machine Tool Dresser: Jann Darnell PhD, Phone: [phone] Performing Lab:see noteLC - [facility] LBUA RANDOM W or MICROSCOPIC Reviewed date:08/15/2025 06:01:53 PM Interpretation: Performing Lab: Notes/Report: [facility] ,Color UrineYELLOWYELLOWClarity UrineCLEARCLEARSpecific [place] Urine>=1.030 1.005-1.025pH Urine5.55.0-9.0Protein UrineTRACENEG/TRACE mg/dLGlucose Urine UA NEGATIVENEGATIVE mg/dLBilirubin UrineNEGATIVENEGATIVEKetones UrineTRACENEGATIVE mg/dLBlood UrineNEGATIVENEGATIVENitrite UrineNEGATIVENEGATIVEUrobilinogen Urine 0.20.2-1.0 EU/dLLeukocyte Esterase UrineTRACENEGATIVEWBC Urine0-2NONE SEEN #/HPF RBC UrineNONE SEEN0-2 #/HPFBacteria UrineLARGENONE SEEN #/HPFMucus UrineMODERATE NONE SEENSquamous Epithelial Cell UrineFEWNONE/RARE #/LPFCrystals Seen?None Seen None Seen #/HPFCast Seen?NONE SEENNONE SEEN #/LPFPerforming Lab:see noteML - [facility] LBPROF 14(COMP METB) Reviewed date:08/15/2025 12:41:01 PM Interpretation: Performing Lab: Notes/Report: [facility] ,Yxvrkn546243-677 mmol/LPotassium4.23.5-5.1 mmol/OMhtwjcog51400-707 mmol/LCarbon Tknjyiv52.221.0-32.0 mmol/LAnion Gap13.9Cfyepqn2953-235 mg/dLBlood Urea Nitrogen 19.07.0-18.0 mg/dLCreatinine0.600.55-1.02 mg/dLEstimated GFR ( Stephenie>60 >=60 mL/min/1.73m 2Estimated GFR (Non- Rosa>60>=60 mL/min/1.73m 2BUN Creatinine Ratio31.3Eeycrpx7.08.5-10.1 mg/dLBilirubin Total0.70.2-1.0 mg/dL Aspartate Amino Bpicaoiytua1450-05 U/LAlanine Dvkdcsfqviskixdk3188-10 U/L Alkaline Wjqkmxnembj4740-593 U/LTotal Protein7.16.4-8.2 g/dLAlbumin Level3.93.4- 5.0 g/dLGlobulin3.2Albumin Globulin Ratio1.2Performing Lab:see noteML - [facility] LBComplement, Total (CH50) Reviewed date:05/25/2025 02:51:44 [...] determine out of range values. Performed at: [place] [id number] Machine Tool Dresser: Jann Darnell PhD, Phone: [employer] Performing Lab:see noteLC - [facility] LBC4+C3 Reviewed date:05/25/2025 02:51:44 PM Interpretation: Performing Lab: Notes/Report: [facility] ,Complement C3, Kjcmw06022-279 mg/dLComplement C4, Dbibc8903-28 mg/dL Performed at: [address] [id number] Machine Tool Dresser: Jann Darnell PhD, Phone: [phone] Performing Lab:see note - [facility] LBUA RANDOM W or MICROSCOPIC Reviewed date:05/23/2025 05:01:35 PM Interpretation: Performing Lab: Notes/Report: [facility] ,Color UrineLT. YELLOWYELLOWClarity UrineCLEARCLEARSpecific [place] Urine>=1.030 1.005-1.025pH Urine6.05.0-9.0Protein UrineNEGATIVENEG/TRACE mg/dLGlucose Urine UANEGATIVENEGATIVE mg/dLBilirubin UrineNEGATIVENEGATIVEKetones UrineTRACE NEGATIVE mg/dLBlood UrineNEGATIVENEGATIVENitrite UrineNEGATIVENEGATIVE Urobilinogen Urine0.20.2-1.0 EU/dLLeukocyte Esterase UrineSMALLNEGATIVEWBC Urine 2-5NONE SEEN #/HPFRBC Urine0-20-2 #/HPFBacteria UrineSMALLNONE SEEN #/HPFMucus UrineSMALLNONE SEENSquamous Epithelial Cell UrineFEWNONE/RARE #/LPFCrystals Seen?None SeenNone Seen #/HPFCast Seen?NONE SEENNONE SEEN #/LPFPerforming Lab: see noteML - [facility] LBPROF 14(COMP METB) Reviewed date:05/23/2025 05:01:35 PM Interpretation: Performing Lab: Notes/Report: [facility] ,Euyfxv018382-711 mmol/LPotassium4.53.5-5.1 mmol/NLnyliyjk03068-288 mmol/LCarbon Wmuernt68.021.0-32.0 mmol/LAnion Gap12.8Fneznmm12611-540 mg/dLBlood Urea Amlygzwk08.07.0-18.0 mg/dLCreatinine0.620.55-1.02 mg/dLEstimated GFR ( Stephenie>60>=60 mL/min/1.73m 2Estimated GFR (Non- Rosa>60>=60 mL/min/1.73m 2BUN Creatinine Ratio33.3Nrdjrnx8.58.5-10.1 mg/dLBilirubin Total0.70.2-1.0 mg/dL Aspartate Amino Yqlhciittvh9848-30 U/LAlanine Eqszoiacmuzrernv2010-79 U/L Alkaline Rfruwhvwxlg3240-029 U/LTotal Protein6.96.4-8.2 g/dLAlbumin Level3.73.4- 5.0 g/dLGlobulin3.2Albumin Globulin Ratio1.2Performing Lab:see noteML - [facility] LBXR elbow LT min 3V Reviewed date:02/28/2025 06:59:53 PM Interpretation: Performing Lab: Notes/Report: Source Facility: [facility]-[address] [place] [address] [place] [address] XRay Report Signed Patient: DANYELLE CHRIS MR#: [id number] : 1955 Acct:[id number] Age/Sex: 69 / F ADM Date: 02/28/25 Loc: [facility] Attending Dr: Laura Larson NP Ordering Physician: Laura Larson NP Date of Service: 02/28/25 Procedure(s): XR elbow LT min 3V Accession Number(s): [id number] cc: Yulisa Batres M.D.; Laura Larson NP [place] [id number] Patient Name: DANYELLE CHRIS MRN: [id number] date: 1955 Sex: F Assigned Patient Location: [facility] Current Patient Location: [facility] Accession/Order Number: [id number] Exam Date: 02/28/2025 13:55 Report Date: 02/28/2025 [...] Castellanos Jr., D.O.02/28/2025 1:56 PM Dictation Location: [place] [address] Electronically authenticated by: [id number] Y Date: 02/28/2025 13:56 Dictated By: Clem Castellanos M.D. Signed By: 02/28/25 1359 DD/ 1356 TD/TT: [employer] Curer:Complement, Total (CH50) Reviewed date:01/29/2025 08:25:25 PM Interpretation: [...] determine out of range values. Performed at: [address] [id number] Machine Tool Dresser: Jann Darnell PhD, Phone: [phone] Performing Lab:[facility] LBC4+C3 Reviewed date:01/29/2025 12:11:17 PM Interpretation: Performing Lab: Notes/Report: [facility] ,Complement C3, Ujigv19744-795 mg/dLComplement C4, Foabe0231-22 mg/dL Performed at: [address] [id number] Machine Tool Dresser: Jann Darnell PhD, Phone: [phone] Performing Lab:[facility] LBManual Differential Reviewed date:01/28/2025 08:46:01 PM Interpretation: Performing Lab: Notes/Report: [facility] ,Segmented Neutrophils % Uckblc61.043.0-75.0Lymphocytes Percent Ohdbvd71.020.5- 60.0 %Monocytes Percent Manual9.01.7-12.0 %Eosinophils Percent Manual2.00.9-7.0 %Basophils Percent Manual1.00.2-2.0 %Segmented Neut Absolute Manual3.071.4-6.5 10 3/uLLymphocytes Absolute Manual0.531.20-3.80 10 3/uLMonocytes Absolute Manual 0.360.30-0.80 10 3/uLEosinophils Absolute Manual0.080.00-0.70 10 3/uLBasophils Abs Manual0.040.00-0.10 10 3/uLMacrocytosis3+Performing Lab:see noteML - [facility] LBErythrocyte Sedimentation Rate Reviewed date:01/28/2025 08:46:01 PM Interpretation: Performing Lab: Notes/Report: [facility] ,Erythrocyte Sedimentation Rate11<=30 mm/hrPerforming Lab:see noteSelect [facility] LBUA RANDOM W or MICROSCOPIC Reviewed date:01/28/2025 08:46:01 PM Interpretation: Performing Lab: Notes/Report: [facility] ,Color UrineLT. YELLOWYELLOWClarity UrineCLEARCLEARSpecific [place] Urine1.015 1.005-1.025pH Urine7.05.0-9.0Protein UrineNEGATIVENEG/TRACE mg/dLGlucose Urine UANEGATIVENEGATIVE mg/dLBilirubin UrineNEGATIVENEGATIVEKetones UrineNEGATIVE NEGATIVE mg/dLBlood UrineNEGATIVENEGATIVENitrite UrineNEGATIVENEGATIVE Urobilinogen Urine0.20.2-1.0 EU/dLLeukocyte Esterase UrineNEGATIVENEGATIVEWBC UrineNONE SEENNONE SEEN #/HPFRBC Urine0-20-2 #/HPFBacteria UrineTRACENONE SEEN #/HPFMucus UrineTRACENONE SEENSquamous Epithelial Cell UrineRARENONE/RARE #/LPF Crystals Seen?None SeenNone Seen #/HPFCast Seen?NONE SEENNONE SEEN #/LPF Performing Lab:see noteML - [facility] LBPROF 14(COMP METB) Reviewed date:01/28/2025 08:46:01 PM Interpretation: Performing Lab: Notes/Report: [facility] ,Nrifsk363001-514 mmol/LPotassium4.53.5-5.1 mmol/ONfbdfhut98425-450 mmol/LCarbon Kzrdrkb67.021.0-32.0 mmol/LAnion Gap12.0Lajepom2242-271 mg/dLBlood Urea Nitrogen 13.07.0-18.0 mg/dLCreatinine0.790.55-1.02 mg/dLEstimated GFR ( Stephenie>60 >=60 mL/min/1.73m 2Estimated GFR (Non- Rosa>60>=60 mL/min/1.73m 2BUN Creatinine Ratio16.5Nydvpml5.58.5-10.1 mg/dLBilirubin Total1.00.2-1.0 mg/dL Aspartate Amino Guagcppwrlq1971-02 U/LAlanine Gxhxsslummkejfek7071-44 U/L Alkaline Kmvvyeyniod6076-607 U/LTotal Protein6.96.4-8.2 g/dLAlbumin Level3.63.4- 5.0 g/dLGlobulin3.3Albumin Globulin Ratio1.1Performing Lab:see noteML - [facility] LBCBC AUTO DIFF Reviewed date:01/28/2025 08:46:01 PM Interpretation: Performing Lab: Notes/Report: [facility] ,White Blood Count4.14.0-11.0 10 3/uLRed Blood Count3.504.20-5.40 10 6/uL Jmpfvinbye18.812.0-16.0 g/dUHduwjfmvdl40.836.0-48.0 %Mean Corpuscular Volume 105.181.0-99.0 fLMean Corpuscular Axnszdzeyp71.726.7-34.0 pgMean Corpuscular HGB Conc32.129.9-35.2 g/dLRed Cell Distribution Width13.611.0-15.0 %Platelet Count 122208-831 10 3/uLMean Platelet Volume8.89.5-13.5 fLPerforming Lab:see noteML - [facility] LBErythrocyte Sedimentation Rate Reviewed date:08/15/2025 12:41:01 PM Interpretation: Performing Lab: Notes/Report: [facility] ,Erythrocyte Sedimentation Rate7<=30 mm/hrPerforming Lab:see noteML - [facility] LBVITAMIN D 25 [place] Reviewed date:08/15/2025 06:01:53 PM Interpretation: Performing Lab: Notes/Report: [facility] ,Vitamin D55.4 <20 ng/mL Vit D deficient 20-<30 ng/mL Vit D insufficient 30-100 ng/mL Vit D sufficient >100 ng/mL Potential Toxicity Performing Lab:see noteML - [facility] LBCBC AUTO DIFF Reviewed date:08/15/2025 12:41:01 PM Interpretation: Performing Lab: Notes/Report: [facility] ,White Blood Count3.24.0-11.0 10 3/uLRed Blood Count3.314.20-5.40 10 6/uL Zeyffwqxga55.512.0-16.0 g/vGSgfgwljwrz78.036.0-48.0 %Mean Corpuscular Volume 102.781.0-99.0 fLMean Corpuscular Tafdwzfqxt72.726.7-34.0 pgMean Corpuscular HGB Conc33.829.9-35.2 g/dLRed Cell Distribution Width13.311.0-15.0 %Platelet Count 004211-145 10 3/uLMean Platelet Volume9.09.5-13.5 fLNeutrophils Percent Auto68.3 43.0-75.0 %Lymphocytes Percent Auto17.620.5-60.0 %Monocytes Percent Auto11.01.7- 12.0 %Eosinophils Percent Auto2.50.9-7.0 %Basophils Percent Auto0.30.2-2.0 % Immature Granulocytes Pct Auto0.30.0-0.5 %Neutrophils Absolute Auto2.21.4-6.5 10 3/uLLymphocytes Absolute Auto0.61.2-3.8 10 3/uLMonocytes Absolute Auto0.40.3-0.8 10 3/uLEosinophils Absolute Auto0.10.0-0.7 10 3/uLBasophils Absolute Auto0.00.0- 0.1 10 3/uLImmature Granulocytes Abs Auto0.010.00-0.03 10 3/uLPerforming Lab:see noteML - [facility] LBErythrocyte Sedimentation Rate Reviewed date:05/23/2025 05:01:35 PM Interpretation: Performing Lab: Notes/Report: [facility] ,Erythrocyte Sedimentation Rate13<=30 mm/hrPerforming Lab:see noteML - [facility] LBCBC AUTO DIFF Reviewed date:05/23/2025 05:01:35 PM Interpretation: Performing Lab: Notes/Report: [facility] ,White Blood Count3.24.0-11.0 10 3/uLRed Blood Count3.524.20-5.40 10 6/uL Yecrxsbzds67.012.0-16.0 g/yFAudqmoloib06.236.0-48.0 %Mean Corpuscular Volume 102.881.0-99.0 fLMean Corpuscular Hdpbinyfhh01.126.7-34.0 pgMean Corpuscular HGB Conc33.129.9-35.2 g/dLRed Cell Distribution Width13.711.0-15.0 %Platelet Count 231778-860 10 3/uLMean Platelet Volume9.09.5-13.5 fLNeutrophils Percent Auto69.2 43.0-75.0 %Lymphocytes Percent Auto16.720.5-60.0 %Monocytes Percent Auto11.01.7- 12.0 %Eosinophils Percent Auto2.50.9-7.0 %Basophils Percent Auto0.30.2-2.0 % Immature Granulocytes Pct Auto0.30.0-0.5 %Neutrophils Absolute Auto2.21.4-6.5 10 3/uLLymphocytes Absolute Auto0.51.2-3.8 10 3/uLMonocytes Absolute Auto0.40.3-0.8 10 3/uLEosinophils Absolute Auto0.10.0-0.7 10 3/uLBasophils Absolute Auto0.00.0- 0.1 10 3/uLImmature Granulocytes Abs Auto0.010.00-0.03 10 3/uLPerforming Lab:see noteML - [facility] LBXR DEXA axial skeleton Reviewed date:12/20/2024 07:53:17 PM Interpretation: Performing Lab: Notes/Report: Source Facility: [place] [address] XRay Report Signed Patient: DANYELLE CHRIS MR#: [id number] : 1955 Acct:[id number] Age/Sex: 69 / F ADM Date: 12/19/24 Loc: [facility] Attending Dr: DARREN MONACO Ordering Physician: DARREN MONACO Date of Service: 12/19/24 Procedure(s): XR DEXA axial skeleton Accession Number(s): [id number] cc: Yulisa Batres M.D.; DARREN MONACO [place] [address] Patient Name: DANYELLE CHRIS MRN: [id number] date: 1955 Sex: F Assigned Patient Location: [facility] Current Patient Location: Accession/Order Number: [id number] Exam Date: 12/19/2024 10:01 Report Date: 12/20/2024 [...] prevention and treatment of osteoporosis. Osteoporos Int. 2021;33(10):5310-2037. doi: 10.1007/b95243-555-89928-l. Epub 2021Mar 04. Erratum in: Osteoporos Int. 2021Jun 03;: PMID: [id number]; PMCID: [id number]. Electronically authenticated by: TONE MERRITT Date: 12/20/2024 08:03 Dictated By: Tone Merritt M.D. Signed By: 12/20/24805 DD/ 2 TD/TT: [employer] Curer: Reason For Referral Diagnosis 1 Lumbar stenosis (M48 .061) Referral Organization [facility] Referring Provider First Name Howard Referring Provider Last Name Soha Referring Provider Speciality Family [facility] icine Referred Provider Victoriano Harley Referred Provider Specialty Neurosurgery Referral Priority Routine Medications Medication SIG (Take, Route, Frequency, Duration) Notes Start Date End Date Status Diclofenac Sodium 1 % External; Duration: 19 Day s ActivepredniSONE 5 MG2-3 tablets Orally as neededPRNActivePregabalin 25 MG1 capsule Orally dx M48.061 Twice Daily; Duration: 30 days06/01/2024ctiveCalcium + D 500-1000-40 MG-UNT-MCG2 1/2 Orally DailyActiveMulti Vitamin -1 tablet Orally Once a dayActiveHydroxychloroquine Sulfate 200 MGas directed Orally Twice Daily ActiveTriamterene-HCTZ 37.5-25 MG1 tablet in the morning Orally Once a dayPRN ActiveIbandronate Sodium 150 MG1 tablet 60 minutes before the first food, beverage or medicine of the day with plain water Orally once monthlyActive Turmeric 500 MGas directed OrallyUnknown DosageActiveFolic Acid 1 MG1 tablet Orally Once a dayActivetiZANidine HCl 4 MG1 tablet as needed Orally at bedtime ActiveGlucosamine 1500 Complex -as directed OrallyActivetraMADol HCl 50 MG1 tablet as needed Orally dx M48.061 tid; Duration: 30 days06/01/2024ctive Lisinopril 40 MGTAKE 1 TABLET BY MOUTH EVERY DAY; Duration: 90ActiveDoxazosin Mesylate 4 MGTAKE 1 TABLET BY MOUTH EVERY DAY; Duration: 30ActiveCarvedilol 25 MGTAKE 1 TABLET BY MOUTH TWICE A DAY; Duration: 90ActivePantoprazole Sodium 40 MGTAKE 1 TABLET BY MOUTH EVERY DAY; Duration: 90ActiveBetamethasone Dipropionate 0.05 % 1 application Externally Twice a day As needed 10/22/2024ActiveMethotrexate 2.5 MG5 tablets Orally on TuesdayActiveVitamin C [...] alcohol in the p ast year? No Lmwths3TihnswpecqtcumGlfyflydFDMKF-J (Standard) Question Answer Notes Did you have a drink containing alcohol in the p ast year? No Pvhmjb7OjylyodlbjsvncUifiltfi Problems Problem Type SNOMED Code ICD Code Onset Dates Problem Status W/U Status Risk Notes Problem Blepharospasm (27901920) Blepharospasm (G 24.5) ActiveconfirmedProblemUnstable knee (133685273)Other instability, left knee (M25.362)ActiveconfirmedProblemLumbosacral radiculopathy (1996960)Radiculopathy, lumbosacral region (M54.17)ActiveconfirmedProblemFull thickness rotator cuff tear (640805216)Complete rotator cuff tear or rupture of left shoulder, not specified as traumatic (M75.122)ActiveconfirmedProblemHypertension (06356679) Hypertension (I10)ActiveconfirmedProblemGastroesophageal reflux disease (564464291)GERD (gastroesophageal reflux disease) (K21.9)ActiveconfirmedProblem Hypertension (30255892)HTN (hypertension) (I10)ActiveconfirmedProblemHypothyroid (70402961)Hypothyroid (E03.9)ActiveconfirmedProblemOsteopenia (478843434) Osteopenia (M85.80)ActiveconfirmedProblemInsomnia (234891581)Insomnia (G47.00) ActiveconfirmedProblemOsteoarthritis of right knee joint (572209960856146)Right knee DJD (M17.9)ActiveconfirmedProblemHistory of left knee replacement (5110049416834382)History of left knee replacement (Z96.652)Activeconfirmed Problemhypercholesterolemia (disorder) (05355231)Hypercholesteremia (E78.00) ActiveconfirmedProblemHemifacial spasm (31209180)Hemifacial 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)Active confirmedProblemLumbar spinal stenosis (93207655)Lumbar stenosis (M48.061)Active confirmed Vital Signs Blood pressure diastolic 98 mm Hg 09/03/2025 Waenpp13 in09/03/2025lood pressure pugqpdbi468 mm Hg09/03/20257079Ceobiv216.0 lbs 09/03/2025BMI34.06 kg/m209/03/2025 Encounters Encounter Location Date Provider Diagnosis [facility] [address] [place] [address] 11/22/2024 [facility] [place] [address] [facility] [place] [address] [place] [address]/[facility] [place] [facility] [place] [address]/07/2025[facility] [place] [facility] [place] [address]/08/2025[facility] [place] [facility] [place] [address]/08/2025 [facility] [place] [facility] [place] [address]/Doug HoyLumbar stenosis M48.061[facility] [place] [facility] [place] [address]/[facility] [place] [facility] [place] [address] [facility] [address] [place] [address]/28/2025Doug HoyHypertension I10 ; Hypothyroid E03.9 ; Hypercholesteremia [...] PANEL (CHOL/TRIG/HDL/LDL) 09/03/20 25 CBC WITH DIFF (EXP 09/2025) 08/28/2024 VITAMIN D, 25 LEVEL (TOTAL) 08/28/2024 [...] End Date MEDIC[place] [address] [place] [address] [id number] Hedy Chris - patient is the insuredANTHEM MEDICARE SUPPLEMENTPO BOX [address] [place] [id number], Hedy - patient is the insured Medical (General) History Medical History History ICD Code Lumbar stenosis M48.061 Blepharospasm G24.5 Iron deficiency anemia D50.9 Macrocytic anemia D53.9 Lumbosacral radiculopathy M54.17 Leukopenia D72.819 Diverticulosis, sigmoid K57.30 Essential Hypertension I10 Hyperlipemia E78.5 Hemifacial spasm G51.39 Insomnia G47.00 Rosacea L71.9 Raynaud disease I73.00 Osteoarthritis M19.90 Polyneuropathy G62.9 Surgical History Surgery Date(Month/Year) Removal Celanzion Eyelid Left total knee arthroplasty- Dr. Borden11/30/2023Ureathal StretchBone Marrow BiopsyCataract Removal- BilateralHip Replacement- RightKnee Arthroplasty- Left KneePosterior Lumbar Interbody FusionOrthoscopic Surgery- Right KneeTonsilectomy Removal Plantar's Wart- Right FootRemoval Cyst Top of HeadD & C X 2Abdominal AblationHysterectomyGanglion Cyst- Right HandRemoval Sebaceous Cyst from Back Ganglion Cyst- Left HandHospitalization History Reason Date(Month/Year) see above
--- OUTSIDE RECORDS SUMMARY | 2025-11-06 06:37 | XMS_ITS | Patient Health Record ---
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 Name Role Phone Stevie Hoyos Primary Care Provider Tone Prescott [facility] [phone] Reason For Referral No Information Social History Tobacco Use: Social History Observation Description Date Details (start date - stop date) Never Smoker NA - NA Smoking History Question Answer Notes Smoking Status NonSmoker Problems Problem Type SNOMED Code ICD Code Onset Dates Problem Status W/U Status Risk Notes Problem Arthropathy of left shoulder (59562632447173261) 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
--- OUTSIDE RECORDS SUMMARY | 2025-11-06 06:37 | XMS_ITS | Clinical Summary ---
Author Organization [facility] Address [address] 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
--- OUTSIDE RECORDS SUMMARY | 2025-11-06 06:37 | XMS_ITS | CCD ---
Author Organization [facility] Care Team Providers Care Gambling Supervisor Name Role Phone Wood, Star A Unavailable Unavailable Wood, Star A Unavailable Unavailable Wood, Star A Unavailable Unavailable Wood, Star A Unavailable Unavailable FOSTER, NEW Unavailable Unavailable FOSTER, NEW Unavailable Unavailable BROWN, STEPHEN Rashmi Unavailable Unavailable ARLYN VANCE Unavailable Unavailable FOSTER, NEW Unavailable Unavailable DAYRON ZAVALA Unavailable Unavailable Salomón Gonzalez Unavailable Salomón Gonzalez Primary Care Provider Salomón Gonzalez Primary Care Provider [phone] Salomón Gonzalez DO Primary Care Provider Stephen [...] DR MÁRQUEZ Consulting Unavailable HOY ., DR MÁRQUZE Primary Care Unavailable KARASIK ., DR SANTIAGO [...] Unavailable Yulisa Batres MD Primary Care Provider [phone] Yulisa Batres MD Primary Care Provider [phone] Mal, Mary Admitting Unavailable Mal, Mary Attending Unavailable Hoy, Yulisa M Primary Care Unavailable Darren Monaco Referring Unavailable Yulisa Batres MD Primary Care Provider [phone] Sammy CAT SCAN TECH, Gaby Unavailable Jacinda OCONNELL, Darren Chatman Unavailable FOSTER, NEW Attending [...] Unavailable Yulisa Batres MD Primary Care Provider [phone] Yulisa Batres MD Primary Care Provider [phone] Sammy BATCH AND FURNACE MANAGER-PRINTER MAINTAINER-C, Gaby Chatman Attending Provider Sammy CAT SCAN TECH, Gaby Unavailable Unavailable Magalie Kaufman DO Attending Provider Yulisa Batres MD Primary Care Provider [phone] Sammy ROWAN, Gaby Unavailable Unavailable Shante Montenegro DO Attending Provider Yulisa Batres MD Primary Care Provider Sammy CAT SCAN TECH, Gaby Unavailable Unavailable Darren Monaco MD Unavailable [phone] BROWN, ELIE A Attending Unavailable BROWN, ELIE A Attending Unavailable BROWN, ELIE A Attending Unavailable MANDEEP, MAGALIE Attending Unavailable MONI, SHANTE Attending Unavailable OMNI, SHANTE Attending Unavailable RAMON BARRETO Attending Unavailable BROWN, ELIE A Attending Unavailable BROWN, ELIE A Attending Unavailable MANDEEP, MAGALIE Attending Unavailable BROWN, ELIE A Attending Unavailable BROWN, ELIE A Attending Unavailable BROWN, ELIE A Referring Unavailable BROWN, ELIE A Attending Unavailable BROWN, ELIE A Attending Unavailable BROWN, ELIE A Attending Unavailable BROWN, ELIE A Attending Unavailable BROWN, ELIE A Attending Unavailable GABY CHRISTIANSON Attending Unavailable Yulisa Batres MD Primary Care Provider Shante Montenegro DO Attending Provider Magalie Kaufman DO Attending Provider [phone] Allergies Allergy ClassificationReported Allergen(s)Allergy TypeDate of OnsetReaction(s) FacilityAlendronate (1 source)AlendronateDrug Igntkuq88-88-7395Tvjnwavko Discomfort, DyspepsiaAvita Health SystemAnti-Epileptic Agents (3 sources)gabapentinDrug Sbghtmf18-82-2050Pfidot and Vomiting, BlistersMarietta Osteopathic Clinic SystemSulfamethoxazole / Trimethoprim (1 source)Sulfamethoxazole / TrimethoprimDrug Bthhuvi34-05-9063BoqktbeYwraf Health System (20 sources)AlendronateDrug Ltqdifu83-40-3517Inertljiv Discomfort, Dyspepsia, [facility] Work Phone: (20 sources)gabapentinDrug Vpvzucx09-97-2519Hhlgtf and Vomiting, Nausea Only, [facility] Work Phone: (20 sources)gabapentinDrug Otgavde96-74-3630EkkrkieyIchhHighland District Hospital Work Phone: (20 sources)OXcarbazepineDrug Orvcyrm65-33-6618Aldjpl and VomitingHighland District Hospital Work Phone: (20 sources)CiprofloxacinDrug Mnewgpy10-57-4088Fjexrpm, Unknown ReactionProvidence City Hospital [facility] (20 sources)levoFLOXacinDrug Qcwixgs91-20-5129Lxwuine, Unknown ReactiondoughSelect Specialty Hospital - [facility]ees[facility] [employer] Other (20 sources)Sulfamethoxazole / TrimethoprimDrug Vrlpeip03-92-7082SyapcqcHzcwz Coast [facility] Other (1 source)AlendronateDrug AllergyEast [facility] (1 source)gabapentinDrug AllergyEast [facility] (1 source)gabapentinDrug AllergyEast [facility] (1 source)OXcarbazepineDrug AllergyEast [facility] Regional Hospital Repository (8 sources)Alendronate; Translations: [alendronate sodium]Drug Bsfrhfo77-53-0170 Unknown ReactionSamaritan Hospital (14 sources)Sulfamethoxazole; Translations: [sulfamethoxazole]Drug Allergy 63-34-6445LdgtsyloYesvqdgjwKettering Memorial Hospital (14 sources)Trimethoprim; Translations: [trimethoprim]Drug Wevzykz86-43-6306 WeaknessSamaritan Hospital (1 source)CiprofloxacinDrug Pycvaox34-55-3948WqjdmwwaiSamaritan Hospital Repository (1 source)gabapentinDrug Uypyjsf35-52-7284LjcwjfnghSamaritan Hospital Repository (1 source)OXcarbazepineDrug Tgghagg55-20-1195MktupobepSamaritan Hospital Repository (20 sources)OxcarbazepinePropensity to adverse reactions to gwye49-69-4902Ylsouj and Vomiting, [facility] Medications Current Medications MedicationDrug Class(es)DatesSig (Normalized)Sig (Original)acetaminophen 325 mg oral tablet (20 sources)Start: 28-99-6521apbl 2 tablets by mouth every four hours as needed Acetaminophen 325 MG tablet Take 2 tablets by mouth every 4 hours as needed for Mild Pain. 50 tablet 1 11/29/2023 ActiveStart: 46-37-0703yaym 2 tablets by mouth every four hours as neededAcetaminophen 325 MG tablet Take 2 tablets by mouth every 4 hours as needed for Mild Pain. Do not exceed 4000mg of Tylenol in 24 hour period. 50 tablet 1 04/26/2023 ActiveStart: 11-48-8730kykj 1 tablet by mouth every twelve hoursStart: 73-28-4915yhyo 2 tablets by mouth every six hours acetaminophen (TYLENOL) tablet 1,000 mgStart: 07-18-2017 End: 87-79-3739egvz 2 tablets by mouth every four hours [...] oral capsule (20 sources)Penicillin-class AntibacterialStart: 12-22-2023 End: 21-00-8309Updzbqsybwl 500 MG capsule Take 4 capsules 1 hour before procedure 8 capsule 1 12/22/2023 12/22/2024 ActiveStart: 11-19-2020 End: 07-85-3393etpjjaihech 500 MG capsule Take 4 capsules 1 hour before procedure 8 capsule 1 11/19/2020 11/19/2021 ActiveStart: 03-01-2019 End: 33-09-5098dqxedtffwrp 500 MG Cap capsule Take 4 capsules [...] tablet (20 sources)Factor Xa InhibitorStart: 11-29-2023 End: 07-41-8495efqc 1 tablet by mouth every twelve hoursapixaban 2.5 MG tablet Take 1 tablet by mouth every 12 hours. This medication is for blood clot prev ention 70 tablet 11/29/2023 ActiveStart: 04-26-2023 End: 38-04-7462jfdy 1 tablet by mouth every twelve hoursapixaban 2.5 MG tablet Take 1 tablet by mouth every 12 hours. This medication is for blood clot prev ention 70 tablet 0 04/26/2023 ActiveStart: 11-21-2018 End: 30-18-0353colh 1 tablet by mouth every twelve hoursapixaban 2.5 MG Tab tablet Take 1 tablet by mouth every 12 hours. This medication is for blood clot prevention 70 tablet 0 11/21/2018 Activeascorbic acid 500 mg oral tablet (20 sources)Vitamin CStart: 19-58-4673plys 1 tablet by mouth once dailytake 2 tablets by mouth in the morningascorbic acid (Vitamin C) 500 MG tablet Take 1,000 mg by mouth in the morning. Activetake 1 tablet by mouth once daily Ascorbic acid 500 MG tablet Take 1 tablet by mouth daily. ActiveAscorbic Acid (Vitamin C) 1000 MG tablet Take 500 mg by mouth daily. 0 Activeazithromycin 250 mg oral tablet (9 sources)Macrolide AntimicrobialStart: 07-18-2024 End: 55-62-8037zgso 1 tablet by mouth once dailyazithromycin (Zithromax Z-Rhett) 250 MG tablet Indications: Abscess of toe, right Take 1 tablet (250 mg) by mouth Daily for 5 days Use as directed 6 tablet 07/30/2024 08/04/2024 Activebiotin 1 mg chewable tablet (20 sources)Start: 32-07-1429lvfc 1 tablet by mouth once dailyStart: 10-01-2020 take 1 capsule by mouth twice dailytake 2 capsules by mouth in the morningbiotin 1 MG capsule Take 2 mg by mouth in the morning. ActiveBiotin 1 MG capsule Take by mouth daily. Activetake 2 tablets by mouth twice dailyBiotin 88624 MCG Tab Take 2 tablets by mouth 2 times daily. 0 Activebisacodyl 10 mg rectal suppository (1 source)Stimulant LaxativeStart: 75-06-1748cyvnthbfn (DULCOLAX) suppository 10 mgonabotulinumtoxina 200 unt injection (6 sources)Acetylcholine Release InhibitorStart: 02-28-2025 End: 74-84-5315vjsijjdlysfxhxzlwX (Botox) injection 80 UnitsStart: 02-28-2025 End: 26-42-5995wqzhct 80 [IU] by intramuscular injection once80 Units, Intramuscular, Once, On Shonda 02/28/25 at 1300, For 1 dose, Charging context for this clinic-administered medication: Medically Necessary/InsuranceStart: 10-25-2024 End: 05-71-7401seipqlkbjqemdwpboT (Botox) injection 80 UnitsStart: 10-25-2024 End: 52-06-5854inzvvr 80 [IU] by intramuscular injection once80 Units, Intramuscular, Once, On Shonda 10/25/24 at 1215, For 1 dose, Charging context for this clinic-administered medication: Medically Necessary/InsuranceStart: 07-26-2024 End: 78-10-2301iypmkltduqnhkmzmzJ (Botox) injection 80 UnitsStart: 07-26-2024 End: 18-24-9506eqyglu 80 [IU] by intramuscular injection once80 Units, Intramuscular, Once, On Shonda 07/26/24 at 1300, For 1 dose, Charging context for this clinic-administered medication: Medically Necessary/Insurancecalcium carbonate 500 mg chewable tablet (1 source)Start: 49-77-2005zstkhzj carbonate (TUMS) tablet 500 mgcalcium carbonate 1500 mg / cholecalciferol 200 unt oral capsule (20 sources)Vitamin DStart: 87-22-1102jypn 1 capsule by mouth once dailyCalcium Carb-Cholecalciferol (Oyster Shell Calcium w/D) 500-5 MG-MCG tablet Take by mouth Daily Activetake 2.5 tablets by mouth once daily at lunchCalcium Carb- Cholecalciferol (CALCIUM 600 + D) 600-200 MG-UNIT Tab tablet Take 2.5 tablets by mouthDaily (with lunch). 0 Activecalcium carbonate 1250 mg / cholecalciferol 1000 unt / vitamin k 0.4 mg chewable tablet (20 sources)Vitamin D End: 62-02-7600Obknhlw-Vitamin D-Vitamin K (Calcium + D) 500-1000-40 MG-UNT-MCG chewable tablet 1 (one) time each day at the same time. 05/15/2025 Discontinued carvedilol 25 mg oral tablet (20 sources)alpha-Adrenergic Heidi, beta-Adrenergic BlockerStart: 11-14-2023 Start: 34-32-6443qtcz 1 tablet by mouth twice dailycarveDILOL 12.5 MG tablet Take 1 tablet by mouth 2 times daily. 0 12/21/2022 Active End: 57-97-5769fyyv 2 tablets by mouth every twelve hourscarvedilol (Coreg) 12.5 MG tablet Take 25 mg by mouth every 12 (twelve) hours 07/31/2024 Discontinued carvedilol (Coreg) 12.5 MG tablet every 12 (twelve) hours. Activecephalexin 500 mg oral capsule (5 sources)Cephalosporin AntibacterialStart: 01-10-2025 End: 73-71-9277axnr 1 capsule by mouth in the morning, [...] oral capsule (7 sources)Lincosamide AntibacterialStart: 01-02-2025 End: 92-65-2004pesi 1 capsule by mouth in the morning, [...] 30 capsule 01/02/2025 01/12/2025 ActiveStart: 08-02-2024 End: 79-67-7890asvb 1 capsule by mouth in the morning, [...] ActiveclonazePAM 0.5 mg oral tablet (20 sources)BenzodiazepineStart: 35-86-7803dcwb 0.5-1 tablets by mouth at bedtime as neededclonazePAM 0.5 MG Tab tablet TAKE 1/2 TO 1 TABLET BY MOUTH AT BEDTIME NEEDED 1 07/01/2018 ActiveD-BIOTIN (18 sources)Biotin 50491 MCG Tab take 2 tablets by mouth 2 times daily.. 0 ActiveBiotin 38754 MCG Tab take 2 tablets by mouth 2 times daily.. Active1 ml dexamethasone phosphate 4 mg/ml injection (12 sources)CorticosteroidStart: 69-42-0253dralzqjhwozsm 4 MG/ML Solution injection 1 mL by Other route As directed for 18 doses. (1 cc 3 x a week at physical therapy via iontophoresis) for up to 18 doses. 30 mL 0 03/01/2019 ActiveStart: 11-22-2018 End: 41-54-1120dqbn 10 mg intravenous route every twenty-four hoursdexamethasone (DECADRON) injection 10 mgdiclofenac sodium 0.01 mg/mg topical gel (20 sources)Nonsteroidal Anti-inflammatory DrugStart: 60-73-7463Evscnjtoox Sodium 1 % Gel gel Diclofenac Diclofenac Sodium Active 4 GM Topical Four times daily October 01, 2020 10:38am 10-01-2020 [facility] ([id number]) 10/01/2020 ActiveStart: 75-48-3216Pbhjussdjb Sodium 1 % Gel gel Diclofenac Diclofenac Sodium Active 4 GM Topical Four times daily October 01, 2020 10:38am 10-01-2020 [facility] ([id number]) 0 10/01/2020 ActiveStart: 62-10-6778boudo 4 g topically four times dailyStart: 10-01-2020 apply 4 g topically four times dailyDiclofenac Sodium Active 4 GM TOPICAL Four times daily October 01, 2020 1:00amStart: 01-09-2018 End: 69-71-7167CFQUQKFV 1 % Gel gel 1 Application as needed. 01/09/2018 11/24/2018 Discontinueddocusate sodium 100 mg oral capsule (20 sources)Start: 22-96-5514bafw 1 capsule by mouth twice dailyDocusate 100 MG capsule Take 1 capsule by mouth 2 times daily. 60 capsule 11/29/2023 Active Start: 72-67-5898zcnr 1 capsule by mouth twice dailyDocusate 100 MG capsule Take 1 capsule by mouth 2 times daily. Hold for loose stools. 60 capsule 0 0 04/26/2023 ActiveStart: 07-18-2017 End: 36-79-6149vaic 1 capsule by mouth twice dailydocusate 100 MG Cap capsule Take 1 capsule by mouth 2 times daily. 60 capsule 0 11/21/2018 Activedocusate sodium 50 mg / sennosides, residential 8.6 mg oral tablet (1 source)Start: 53-90-7663ycbtg-docusate (SENOKOT-S) 8.6-50 MG per tablet 2 tabletdoxazosin 4 mg oral tablet (20 sources)alpha-Adrenergic BlockerStart: 38-28-6696Ciqf Oils (1 source)take 1 capsule by mouth once dailyFish Oil 1000 MG 1 capsule Orally Once a day for 30 day(s) Activefolic acid 1 mg oral tablet (20 sources)Start: 97-08-3777lzwi 1 tablet by mouth once dailyglucosamine 500 mg oral tablet (1 source)take 1 capsule by mouth once dailyGlucosamine 500 MG 1 capsule with a meal Orally Once a day for 30 day(s) DajdloJgsnxjcrcmu-Utckbhcgp-Bvn C-Mn (Glucosamine 1500 Complex) capsule (20 sources)Pvhnutxetvz-Mljccwxdy-Uob C-Mn (Glucosamine 1500 Complex) capsule as directed Orally LcqagyEukrzhxtbik-Grlfvhpaq-Fdy C-Mn (Glucosamine 1500 Complex) capsule Take by mouth daily. EvrkhmByljnedfuzr-Jtbtafzvr-Ltg C-Mn (Glucosamine 1500 Complex) capsule Take by mouth daily. 0 Active Eyhwqxiaflb-Fxq-Asssnhcwk-Vitc (Glucosamine Complex-Msm) Capsule (7 sources)Start: 53-68-1338skwp 1 capsule by mouth once dailyStart: 10-01-2020 take 1 capsule by mouth once dailyStart: 21-92-6667rlgq 1 capsule by mouth once zzzexFbsfffmbzft-Krv-Kcrgafcvl-Vitc (Glucosamine Complex-Msm) Capsule Active 1 CAP PO Daily October 01, 2020 1:00am Complies with drug therapyStart: 03-07-1626bkvz 1 capsule by mouth once goiciGgpoxnyhmcz-Gic-Taaidldjq-Vitc (Glucosamine Complex-Msm) Capsule Active 1 CAP PO Daily October 01, 2020 1:00am1 ml hydrALAZINE hydrochloride 20 mg/ml injection (1 source)Arteriolar VasodilatorStart: 83-93-3662ojjx 10 mg intravenous route every six hours as neededhydrALAzine (APRESOLINE) injection 10 mg hydroCHLOROthiazide 25 mg / triamterene 37.5 mg oral tablet (20 sources)Potassium-sparing Diuretic, Thiazide DiureticStart: 57-86-8809pytf 1 tablet by mouth once dailyStart: 13-54-5071efeo 1 tablet by mouth once daily1 tablet, Oral, DAILY, First dose on Tue11/21/18 at 1230, Until Discontinued triamterene-hydrochlorothiazide 37.5-25 MG Cap Take 1 capsule by mouth as needed (edema). Activetriamterene-hydrochlorothiazide (Maxzide-25) 37.5-25 MG tablet Active1 ml HYDROmorphone hydrochloride 1 mg/ml cartridge (1 source)Opioid AgonistStart: 59-09-8130vjmq 0.5 mg intravenous route every four hours as neededHYDROmorphone (DILAUDID) injection 0.5 mghydroxychloroquine sulfate 200 mg oral tablet (20 sources)Antimalarial, Antirheumatic AgentStart: 46-63-3575kdhj 1 tablet by mouth twice dailyStart: 10-01-2020 End: 92-28-4102yjwp 200 mg by mouth twice dailyHydroxychloroquine Active 200 MG PO Twice daily October 01, 2020 1:00amtake 1 tablet by mouth in the morning hydroxychloroquine (Plaquenil) 200 MG tablet Take 200 mg by mouth in the morning and 200 mg before bedtime. Activeibandronic acid 150 mg oral tablet (20 sources)BisphosphonateStart: 97-13-8842Flnop: 10-01-2020 End: 35-24-7690mmqi 1 tablet by mouth every monthIbandronate 150 mg tablet Discontinued 150 MG PO every month October 01, 2020 12:00am May 07, 2021 10:16amStart: 75-25-1361jwxq 1 tablet by mouth every 30 daysibandronate 150 MG Tab Take 1 tablet by mouth every 30 days. 09/10/2016 Activeleflunomide 20 mg oral tablet (20 sources)Antirheumatic AgentStart: 40-50-6391jovl 1 tablet by mouth once dailyStart: 10-03-2016 End: 91-91-5365rdgqmldnsok 20 MG Tab take 20 mg by mouth at bedtime.. 10/03/2016 11/24/2018 Discontinuedlisinopril 40 mg oral tablet (20 sources)Angiotensin Converting Enzyme InhibitorStart: 10-43-2713Ynpds: 74-72-4235utsp 1 tablet by mouth once dailymeloxicam 7.5 mg oral tablet (18 sources)Nonsteroidal Anti-inflammatory DrugStart: 10-21-9485weli 1 tablet by mouth once daily at mealtimeMeloxicam 7.5 MG tablet Take 1 tablet by mouth daily. Take with food. 30 tablet 11/29/2023 ActiveStart: 56-24-4838qmgg 1 tablet by mouth once daily at mealtimeMeloxicam 7.5 MG tablet Take 1 tablet by mouth daily. Take with food. 30 tablet 0 04/26/2023 Activemethotrexate 2.5 mg oral tablet (20 sources)Folate Analog Metabolic InhibitorStart: 46-14-8618mmvb 5 tablets by mouth every weekmethotrexate 2.5 MG tablet TAKE 5 TABLETS BY MOUTH ONCE EVERY WEEK 0 10/03/2020 ActiveStart: 58-10-6455urbj 6 tablets by mouth every week Start: 82-68-0812Slrqkrzumpaf Sodium Active 12.5 MG PO Q7D October 01, 2020 1:00am 6 one day a week on Tuesday End: 74-74-5064vwtxvighftpz 2.5 MG tablet every 7 days. ActivemethylPREDNISolone (20 sources)CorticosteroidStart: 39-36-1132jkxplmHWWCRXraifxv 4 MG Tab Therapy Pack tablet as needed. 02/21/2023 ActiveStart: 78-16-8046dlawtaZNFMKHWeaeht (Medrol Dospak) 4 MG tablets TAKE DIRECTED [...] mouth at bedtime.. ActiveMultivitamin preparation (2 sources)Start: 34-89-3932sdpq 1 tablet by mouth once dailyMultivitamin Active 1 TAB PO Daily October 01, 2020 1:00amMultivitamin as directed Orally Active Multivitamin Tablet (6 sources)Start: 00-61-8610vvsc 1 tablet by mouth once dailyStart: 10-01-2020 take 1 tablet by mouth once dailyStart: 51-02-0857hbua 1 tablet by mouth once dailyMultivitamin Tablet Active 1 TAB PO Daily October 01, 2020 1:00am Complies with drug therapy2 ml ondansetron 2 mg/ml injection (1 source)Serotonin-3 Receptor AntagonistStart: 17-04-1346kuia 4 mg intravenous route every four hours as neededondansetron 4mg/2ml (ZOFRAN) injection 4 mg oxyCODONE hydrochloride 5 mg oral tablet (20 sources)Opioid AgonistStart: 37-82-6978xxlw 1-2 tablets by mouth every four to six hours as needed for painoxyCODONE 5 MG tablet Indications: Acute postoperative pain of left knee Take 1-2 tabs po q 4-6 hours prn pain. Wean as tolerated. 30 tablet 11/29/2023 ActiveStart: 78-67-7347tzsCUIJXK 5 MG tablet Indications: Acute postoperative pain of right knee Take one to two tabs every 4-6 hours as needed for severe pain. Wean as tolerated 30 tablet 0 04/26/2023 ActiveStart: 07-18-2017 End: 45-85-7481uflv 1-2 tablets by mouth every four to six hours as needed for painoxyCODONE 5 MG Tab tablet Indications: Acute postoperative pain of left knee Take 1-2 tabs po q 4-6hours PRN pain. 60 tablet 0 11/21/2018 Activepantoprazole 40 mg delayed release oral tablet (20 sources)Proton Pump InhibitorStart: 77-78-3584zppv 1 tablet by mouth once dailypredniSONE 5 mg oral tablet (20 sources)Start: 88-06-7465mdhx 1 tablet by mouth twice daily as needed for pain, then take 1-2 tablets by mouth once daily asneeded for painpsyllium 520 mg oral capsule (20 sources)Start: 96-00-7307nqkb 1 dose by mouth once daily in the evening Psyllium (METAMUCIL FIBER PO) take 1 Dose by mouth every evening.. 0 Activetake 1 dose by mouth once daily in the eveningPsyllium (METAMUCIL FIBER PO) take 1 Dose by mouth every evening.. Cbdsux2939 ml sodium chloride 9 mg/ml injection (2 sources)Start: 11-21-2018 End: 33-06-4802jbbmxj chloride 0.9% IV solutionsodium phosphate, dibasic 35.5 mg/ml / sodium phosphate, monobasic 96.4 mg/ml enema (1 source)Start: 39-79-6660hcoiia phosphate w/sodium biphosphate (FLEETS) enema 1 enemasucralfate 1000 mg oral tablet (18 sources)Aluminum ComplexStart: 86-83-3589wrkf 1 tablet by mouth twice daily Sucralfate 1 g tablet Take 1 tablet by mouth 2 times daily. 60 tablet 11/29/2023 ActiveStart: 99-27-8636cicu 1 tablet by mouth twice dailySucralfate 1 g tablet Take 1 tablet by mouth 2 times daily. While on NSAID therapy 84 tablet 0 04/26 Activetherapeutic multivitamin-minerals tablet (18 sources)Start: 95-64-3419wmwd 1 tablet by mouth at bedtimetherapeutic multivitamin-minerals tablet Take 1 tablet by mouth at bedtime. 30 tablet 11/29/2023 ActiveStart: 62-29-8339hist 1 tablet by mouth at bedtimetherapeutic multivitamin-minerals tablet Take 1 tablet by mouth at bedtime. 30 tablet 0 04/26/2023 Activethioctic acid 200 mg oral tablet (20 sources)Start: 44-37-7744pmrb 1 tablet by mouth once daily End: 73-52-9706Nujbc-Lipoic Acid 200 MG capsule 1 capsule daily. Active tiZANidine 4 mg oral tablet (20 sources)Central alpha-2 Adrenergic AgonistStart: 90-99-2972szyPLVcs hydrochloride 50 mg oral tablet (20 sources)Opioid AgonistStart: 27-49-8319inpd 1 tablet by mouth three times daily as needed for paintraMADol 50 MG tablet Take 1 tablet by mouth 3 times daily as needed for Pain. 07/27/2023 ActiveStart: 70-09-5901eqbz 1 tablet by mouth twice daily as needed for painStart: 11-03-2017 End: 70-80-4054qdjQZAgc 50 MG Tab tablet TAKE 1 TABLET TWICE A DAY NEEDED 2 11/03/2017 11/24/2018 Discontinuedtriamcinolone acetonide 0.25 mg/ml topical cream (13 sources)CorticosteroidStart: 77-09-6515Fhlsp: 03-11-2021 End: 73-27-8960twaxaqqtdtlnc (KENALOG-40) injection 1 mLStart: 11-19-2020 End: 92-00-0779ogyylqortagwe (KENALOG-40) injection 1 mLStart: 11-21-2019 End: 16-41-2800tkmhcsvwzjiwy (KENALOG-40) injection 1 mLStart: 11-21-2019 End: 31-88-0472rxjygtqqnjafc (KENALOG-40) injection 1 mLTURMERIC CURCUMIN PO (4 sources)TURMERIC CURCUMIN PO Take by mouth. 0 ActiveTurmeric Root Extract (20 sources)Start: 17-95-8460ovxg 1 capsule by mouth once dailyStart: 05-07-2021 take 1 capsule by mouth once dailyStart: 11-99-0944uasm 1 capsule by mouth once dailyTurmeric Root Extract 500 mg Capsule Active 500 MG PO Daily May 07, 2021 12:00am Complies with drug therapyStart: 61-82-0519azoq 500 mg by mouth once dailyTurmeric Root Extract Active 500 MG PO Daily May 07, 2021 12:00amTurmeric 500 MG capsule as directed Orally ActiveTURMERIC PO as directed Orally Active TURMERIC PO as directed Orally 0 Activezolpidem tartrate 5 mg oral tablet (1 source)gamma-Aminobutyric Acid-ergic AgonistStart: 86-96-7253ngijaysz (AMBIEN) tablet 5 mg Completed/Discontinued Medications MedicationDrug Class(es)DatesSig (Normalized)Sig (Original)baclofen 10 mg oral tablet (20 sources)gamma-Aminobutyric Acid-ergic AgonistStart: 01-10-7906rxel 20 mg by mouth three times daily as yrnstw35 mg, Oral, 3 TIMES DAILY NEEDED, Starting Tue11/21/18 at 1145, Until Discontinued, Muscle spasmstake 2 tablets by mouth three times daily as neededbaclofen 10 MG Tab Take 20 mg by mouth 3 times daily as needed. 0 ActiveCalcium-Vitamin D 600-200 Mg-Unit Po Tabs (3 sources) End: 68-52-9554vbjc 1.5 tablets by mouth once daily in the morningCalcium- Vitamin D 600-200 MG-UNIT Tab take 1.5 tablets by mouth daily every morning.. 11/24/2018 Discontinuedtake 1.5 tablets by mouth once daily in the morning Calcium-Vitamin D 600-200 MG-UNIT Tab take 1.5 tablets by mouth daily every morning.. ActiveceFAZolin 2000 mg injection (1 source)Cephalosporin AntibacterialStart: 11-21-2018 End: 05-16-6452wanr 2 g intravenous route every eight hoursceFAZolin (ANCEF) 2 g in dextrose 100 mL premix IVPBcelecoxib 200 mg oral capsule (1 source)Nonsteroidal Anti-inflammatory DrugStart: 11-21-2018 End: 67-90-0855yztkcofgi (CELEBREX) capsule 200 mgferrous sulfate 325 mg oral tablet (13 sources)Start: 10-01-2020 End: 47-19-0170wqou 1 tablet by mouth twice dailyFerrous Sulfate 325 mg (65 mg iron) Tablet Discontinued 325 MG PO Twice daily October 01, 2020 12:00am May 07, 2021 10:17amtake 1 tablet by mouth twice daily as neededferrous sulfate 325 (65 Fe) MG Tab DR tablet Take 325 mg by mouth 2 times daily as needed. 0 Active1 ml ketorolac tromethamine 15 mg/ml cartridge (1 source)Nonsteroidal Anti-inflammatory Drug, Cyclooxygenase InhibitorStart: 11-21-2018 End: 01-11-9474twls 15 mg intravenous route every six hoursketorolac (TORADOL) injection 15 mg10 ml lidocaine hydrochloride 10 mg/ml injection (9 sources)Antiarrhythmic, Amide Local AnestheticStart: 03-11-2021 End: 06-92-3199rylljnogn 1% (PF) (XYLOCAINE MPF) 1 % injection 5 mLStart: 11-19-2020 End: 73-64-4642szwixchmy 1% (PF) (XYLOCAINE MPF) 1 % injection 5 mLStart: 11-21-2019 End: 96-77-6515uvqbpwbzd 1% (PF) (XYLOCAINE MPF) 1 % injection 5 mLStart: 11-21-2019 End: 46-71-7774nrxuuooua 1% (PF) (XYLOCAINE MPF) 1 % injection 5 mLStart: 04-12-2017 End: 73-02-6243bztpdvwnw 5 % Ointment as needed.. 6 04/12/2017 11/24/2018 Discontinuedmagnesium oxide 400 mg oral tablet (3 sources)Start: 09-27-2016 End: 78-21-0607Fkibqkixk Oxide 400 (240 Mg) MG Tab take 400 mg by mouth as needed.. 09/27/2016 11/24/2018 DiscontinuedOXcarbazepine 150 mg oral tablet (3 sources)Anti-epileptic AgentStart: 01-03-2018 End: 65-36-6744JIzqjupgtoiaj 150 MG Tabpregabalin 25 mg oral capsule (20 sources)Start: 03-21-2025 End: 86-64-6312Wzytbqgxse 25 mg capsule Discontinued 25 MG PO April 30, 2025 11:00pm June 17, 2025 3:26pmStart: 10-22-2024 End: 26-11-9629mhok 2 capsules by mouth in the morningpregabalin (Lyrica) 25 MG capsule Indications: Paresthesias , Spinal stenosis of lumbar region, unsp ecified whether neurogenic claudication present Take 2 capsules (50 mg) by mouth in the morning and2 capsules (50 mg) before bedtime. 60 capsule 2 10/22/2024 10/24/2024 Discontinued (Reorder)Start: 10-15-2024 End: 12-70-2756vzvx 1 capsule by mouth in the morningpregabalin (Lyrica) 50 MG capsule Indications: Paresthesias , Spinal stenosis of lumbar region, unsp ecified whether neurogenic claudication present Take 1 capsule (50 mg) by mouth in the morning and 1 capsule (50 mg) before bedtime. 60 capsule 2 10/15/2024 10/22/2024 Discontinued (Reorder)Start: 02-15-2023 End: 19-18-8029wmfq 1 capsule by mouth in the morningpregabalin [...] mL (total volume) (1 source)Start: 11-21-2018 End: 65-29-7748xfjjhufclrb (NAROPIN) 1 % 400 mg, EPINEPHrine PF (ADRENALIN) 1 MG/ML 1 mg, ketorolac (TORADOL) 30 MG/ML 30 mg, cloNIDine 100 MCG/ML 184 mcg, sodium chloride 0.9% 45 mL 88.84 mL (total volume)tranexamic acid 650 mg oral tablet (1 source)Antifibrinolytic AgentStart: 11-21-2018 End: 71-95-2409yrjbjobcxc acid (LYSTEDA) tablet 1,950 mgvancomycin (VANCOCIN) 1,250 mg in sodium chloride 0.9%, with overfill 287.5 mL (total volume) IVPB (2 sources)Start: 11-21-2018 End: 74-69-7812iimszrvcus (VANCOCIN) 1,250 mg in sodium chloride 0.9%, with overfill 287.5 mL (total volume) IVPBStart: 11-21-2018 End: 91-15-2911qtwksjbmaz (VANCOCIN) 1,250 mg in sodium chloride 0.9%, with overfill 287.5 mL (total volume) IVPBzonisamide 100 mg oral capsule (20 sources)Anti-epileptic AgentStart: 10-01-2020 End: 02-31-1341huos 1 capsule by mouth at bedtimeZonisamide 100 mg capsule Discontinued 100 MG PO Bedtime October 01, 2020 12:00am May 01, 2025 8:54am Problems Active Problems Problem ClassificationProblemDateDocumented DateEpisodic/ChronicAcquired foot deformities (20 sources)Acquired deformity of toe of left foot; Translations: [Acquired deformities of toe(s), unspecified,left foot]74-59-6466VtvbdxzwUiypxiie (20 sources)After-cataract of left eye; Translations: [Other secondary cataract, left eye]Onset: 07-13-2023 Resolved: 462510-68-9346GentbmyDjdigmc ulcer of skin (4 sources)Non-pressure chronic ulcer of other part of left foot with fat layer exposed; Translations: [Ulcer of other part of foot]87-57-3279TohurqtFavxflcvwh and other anemia (7 sources)Iron deficiency anemia; Translations: [Iron deficiency anemia, unspecified]16-25-9124NqywbfkkLrmmvepd of white blood cells (7 sources)Leukopenia; Translations: [Decreased white blood cell count, unspecified]94-61-5525QgdzdlkPkvlfbkbh of lipid metabolism (20 sources)Hyperlipidemia, unspecified; Translations: [Hyperlipidemia]Onset: 53-40-3863YsupodnElmlmringu disorders (20 sources)Gastroesophageal reflux disease; Translations: [Gastro-esophageal reflux disease without esophagitis]Onset: 728773-48-4030JzbwcucFfuzautjy hypertension (20 sources)Benign hypertension; Translations: [Essential (primary) hypertension]Onset: 674624-97-3916AvoqzmdQnlvunwt; including migraine (4 sources)Headache; including migraine; Translations: [HEADACHE UNSPECIFIED] Onset: 25-48-2277Pbnxnxp (6 sources)Pain in toe; Translations: [Tinea unguium]84-68-3073Oiyetnmb Nutritional deficiencies (1 source)Vitamin D deficiency, unspecified; Translations: [VITAMIN D DEFICIENCY UNSPECIFIED]Onset: 17-39-4904VfrmhgmMoylwqlzikrwmn (20 sources)Primary generalized (osteo)arthritis; Translations: [Osteoarthritis of right knee joint]Onset: 562467-55-8849YreioqmPwlpnanairzr (4 sources)Age-related osteoporosis without current pathological fracture; Translations: [AGE-REL OSTEOPOR W/OCURR PATH FX]Onset: 29-87-7849RtviqitXwvuv aftercare (1 source)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; Translations: [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 BUILDING SUPERVISOR CURRENT DRUG THERAPY]Onset: 35-73-2354RjliozqeWradx circulatory disease (18 sources)Raynaud's phenomenon; Translations: [Raynaud's syndrome without gangrene]Onset: 082034-43-0490AiqsfbsGxjic connective tissue disease (18 sources)History of total knee arthroplasty; Translations: [Presence of unspecified artificial knee joint]Onset: 237772-05-7500YbxlrjwRbujt connective tissue disease (3 sources)History of right total knee replacement; Translations: [Presence of right artificial knee joint]33-97-0884DgkdxamUckpe connective tissue disease (3 sources)History of left total knee replacement; Translations: [Presence of left artificial knee joint]97-19-7319RpkvgbsTbyzh connective tissue disease (2 sources)Presence of left artificial knee joint; Translations: [Presence of left artificial knee joint]Onset: 19-82-9469OmafqzwTvurn connective tissue disease (2 sources)Presence of right artificial knee joint; Translations: [Presence of right artificial knee joint]Onset: 00-47-3777XgwtntrYbmij connective tissue disease (1 source)Disorder of tendon; Translations: [Extensor mechanism malalignment] EpisodicOther connective tissue disease (4 sources)Pain of toe of right foot; Translations: [Pain in right toe(s)] 21-80-7007YwqgggvrZdqem hematologic conditions (7 sources)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; Translations: [Other specified diseases of blood and blood-forming organs]30-35-4155AjllkvfIgjyi hereditary and degenerative nervous system conditions (20 sources)Blepharospasm; 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]Onset: 04-24-2024 02-74-1702BvujvyyOuhzi nervous system disorders (20 sources)Peripheral nerve disease ; Translations: [Polyneuropathy, unspecified]Onset: 690578-92-6560BdbpciiKrlpv nervous system disorders (20 sources)Small fiber neuropathy; Translations: [Polyneuropathy, unspecified] Onset: 086326-08-8087SybfnxxJdofk nervous system disorders (20 sources)Polyneuropathy; Translations: [Polyneuropathy, unspecified]Onset: 605688-53-6089AwsdvefFihmd nervous system disorders (17 sources)Bilateral carpal tunnel syndrome; Translations: [Carpal tunnel syndrome, bilateral upper limbs]23-47-0412DbvghlyKuisi non-traumatic joint disorders (2 sources)Knee pain; Translations: [Postoperative pain of left knee]Episodic Other non-traumatic joint disorders (2 sources)Pain in right hip; Translations: [Right hip pain]EpisodicOther non- traumatic joint disorders (1 source)Joint pain; Translations: [Pain in prosthetic joint, initial encounter]EpisodicOther non-traumatic joint disorders (7 sources)Pain in left knee; Translations: [Pain in left knee]Onset: 11-21-2018 12-74-0917Ylfdz non-traumatic joint disorders (1 source)Arthritis of right knee; Translations: [Arthritis of right knee]Other nutritional; endocrine; and metabolic disorders (20 sources)Obesity, unspecified; Translations: [Obese class I]Onset: 2017 24-42-1754UmydrrgJiylh nutritional; endocrine; and metabolic disorders (7 sources)Obese class I; Translations: [Obesity (BMI 30.0-34.9)]Onset: Other screening for suspected conditions (not mental disorders or infectious disease) (7 sources)Encounter for screening for malignant neoplasm of colon; Translations: [Encounter for screening mammogram for malignant neoplasm of breast]Onset: 58-25-4305VcqzqzetWxtjh skin disorders (4 sources)Ingrowing nail; Translations: [Ingrowing nail]06-51-3824Qpgbjmdw Peripheral and visceral atherosclerosis (20 sources)Peripheral vascular disease; Translations: [Peripheral vascular disease, unspecified]Onset: 208768-45-1331YvaltcjGtdkwxa detachments; defects; vascular occlusion; and retinopathy (20 sources)Nonexudative age-related macular degeneration; Translations: [Nonexudative age-related macular degeneration, bilateral, intermediate dry stage]Onset: 126688-89-6686UoqwxsbOuxdzydwuw arthritis and related disease (20 sources)Rheumatoid arthritis; Translations: [Rheumatoid arthritis, unspecified]Onset: 411812-14-8426XbpjtqrOfna and subcutaneous tissue infections (20 sources)Cellulitis of left axilla; Translations: [Cellulitis of left axilla] Onset: 356280-30-9853EebfkzwsUpugnwajbqx; intervertebral disc disorders; other back problems (20 sources)Lumbar spondylosis; Translations: [Spondylosis without myelopathy or radiculopathy, lumbar region]Onset: 08-31-2021 Resolved: 52-41-5520DuekskkIcssikxbwyy; intervertebral disc disorders; other back problems (20 sources)Sciatica; Translations: [Sciatica, left side]Onset: 08-31-2021 Resolved: 06-70-6765WalzvbdiCvmypreg lupus erythematosus and connective tissue disorders (20 sources)Systemic involvement of connective tissue, unspecified; 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]Onset: 02-08-2023 ChronicThyroid disorders (18 sources)Hyperthyroidism; Translations: [Thyrotoxicosis, unspecified without thyrotoxic crisis or storm]Onset: 546735-30-3748McdtgshSmgfffplqeuh (2 sources)Preprocedural examination done; Translations: [Pre-op exam] Unclassified (1 source)History of left total knee replacement; Translations: [Hx of total knee arthroplasty, left]Unclassified (1 source)Decreased white blood cell count, unspecified; Translations: [Decreased white blood cell count, unspecified]Onset: 27-10-6195Tfuuzhp tract infections (18 sources)Chronic cystitis; Translations: [Other chronic cystitis without hematuria]Onset: 142755-23-2179Tjshtnw Past or Other Problems Problem ClassificationProblemDateDocumented DateEpisodic/ChronicConditions associated with dizziness or vertigo (20 sources)Dizziness; Translations: [Dizziness and giddiness]Onset: 04-24-2024 78-59-3340ZbseztthBeugtpfboj and other anemia (1 source)Anemia, unspecified; Translations: [ANEMIA UNSPECIFIED]Onset: 27-94-9400NsokcxnzVncgykifkz and other anemia (1 source)Iron deficiency anemia, unspecified; Translations: [Iron deficiency anemia, unspecified]Onset: 33-16-4990GlpbuvsvIkrddgyz mellitus without complication (1 source)Other abnormal glucose; Translations: [OTHER ABNORMAL GLUCOSE]Onset: 33-95-6620HjozazlqTjlnymcvyazj; infection of eye (except that caused by tuberculosis or sexually transmitteddisease) (20 sources)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; Translations: [Unspecified blepharitis right eye, upper and lower eyelids]Onset: 994345-15-3878HvthqafwNddgyug examination/evaluation (2 sources)Encounter for other preprocedural examination; Translations: [Encounter for other preprocedural examination]Onset: 34-49-5430WbkuliovMedbx acquired deformities (20 sources)Spondylolisthesis; Translations: [Spondylolisthesis, site unspecified]Onset: 071188-28-3203UbbgbsziTlega aftercare (20 sources)Drug therapy finding; Translations: [Other retirement (current) drug therapy]Onset: 252631-54-9194KqbzfuqmJcptz bone disease and musculoskeletal deformities (1 source)Other specified disorders of bone density and structure, unspecified site; Translations: [OTH D/O BONE DEN STRUCT UNS SITE]Onset: 61-55-2845Mtcfordu Other bone disease and musculoskeletal deformities (20 sources)Osteopenia; Translations: [Other specified disorders of bone density and structure, unspecified site]Onset: 193812-58-7245GbmeudebTwffc circulatory disease (1 source)Decreased breath sounds; Translations: [Decreased breath sounds] EpisodicOther connective tissue disease (20 sources)Rupture of patellar tendon; Translations: [Patellar tendon rupture] Onset: 932125-05-4693McqzpotbBfqqr connective tissue disease (20 sources)Synovial hernia; Translations: [Other specified disorders of synovium and tendon, unspecified site]Onset: 632472-73-5906PfnitfipQqmak connective tissue disease (20 sources)Fibromyalgia; Translations: [Fibromyalgia]Onset: 04-24-2024 48-50-7631AbdxjajcGsyds connective tissue disease (20 sources)Weakness of face muscles; Translations: [Facial weakness]Onset: 339126-81-1187ElrllvykLmhyg connective tissue disease (20 sources)Spasm; Translations: [Other muscle spasm]Onset: EpisodicOther connective tissue disease (1 source)Pain of toes of bilateral feet; Translations: [Pain in right toe(s)] 20-67-7320MbgloodjLoqvj eye disorders (20 sources)Dry eyes; Translations: [Dry eye syndrome of bilateral lacrimal glands]Onset: 449965-14-7303FwscbkthKwqvf nervous system disorders (20 sources)Trigeminal neuralgia; Translations: [Trigeminal neuralgia]Onset: 753797-16-0168NhbzpkgtWziph nervous system disorders (20 sources)Hemifacial spasm; Translations: [Clonic hemifacial spasm, unspecified]Onset: 086738-22-3506CtjghlqxBaebx nervous system disorders (20 sources)Skin sensation disturbance; Translations: [Unspecified disturbances of skin sensation]Onset: 818890-57-4911ZmxtuypgTqoki nervous system disorders (20 sources)Paresthesia; Translations: [Paresthesia of skin]Onset: 04-24-2024 33-25-0696NltbkvhyTdgpy non-traumatic joint disorders (20 sources)Pain in left knee; Translations: [Pain in left knee]Onset: 305190-99-1541AiegfjvlZamvc non-traumatic joint disorders (10 sources)Pain in right knee; Translations: [Pain in right knee]Onset: 46-15-5568ZwlyelciZdwpbjhb codes; unclassified (1 source)Family history of malignant neoplasm of digestive organs; Translations: [[facility] NEOPLASM DIGESTIV ORGN]Onset: 45-13-2290Wmmpuumr Residual codes; unclassified (1 source)Family history of malignant neoplasm of other organs or systems; Translations: [[facility] HX [facility] NEOPLASM OTH ORGN/SYS]Onset: 52-80-6329Awmnyrsw Sprains and strains (20 sources)Strain of other muscle(s) and tendon(s) at lower leg level, unspecified leg, subsequent encounter; Translations: [Rupture of patellar tendon]Onset: 414783-95-5238JqllupzvJtkdbwvuuzoe (14 sources)Onset: 11-24-2018 Resolved: Results Test NameValueInterpretationReference RangeFacilityOptical coherence tomography study reporton 21-43-1104JPVEUNC Medical CenterRadiology Study observation (narrative)[facility] HealthcarePerimetry studyon 94-47-7845YJGMTenet St. LouisRadiology Study observation (narrative)[facility] HealthcareXR Foot - left 3 Viewson 45-17-8033Owrncpa Result: K-wire fixation intact with PIPJ arthrodesis site intact to the 3rd digit with rectus 3rd digit notedNOSSM Health St. Mary's HospitalRadiology Study observation (narrative)[facility] HealthcareEMG 2 Extremitieson 58-43-0466Tsuxis tunnel bilaterally. Moderate left and minimal right. C8 radiculopathy bilaterally which is mild in degree electricallyBates County Memorial Hospital HealthcareNVC 11-12 Nerveson 60-12-4325Nvnrhh tunnel bilaterally. Moderate left and minimal right. C8 radiculopathy bilaterally which is mild in degree electricallyBates County Memorial Hospital HealthcareOptical coherence tomography study reporton 74-01-7132KHRVCrittenton Behavioral Health HealthcareOptical coherence tomography study reporton 07-31-2024 Radiology Study observation (narrative)[facility] HealthcarePerimetry studyon 79-34-6979KNWGUNC Medical CenterRadiology Study observation (narrative) [facility] HealthcareCBCon 59-97-6516ZATVKZRQ BAS0.0 10*3/uLNormal0.0-0.2AVirtua VoorheesComment on above:Performed By: #### ACBC #### Testing performed at [address] [address]TTAUKCUM EOS0.0 10*3/uLNormal0.0-0.7AVirtua Voorhees Comment on above:Performed By: #### ACBC #### Testing performed at [address] [address]NOLIHWBI NEUTROPHIL COUNT2.4 10*3/uLNormal1.4-6.5AVirtua VoorheesComment on above:Performed By: #### ACBC #### Testing performed at [address] [address]Jhurbjznp/100 WBC (Bld)0.3 %Normal0.0-2.0[facility] Comment on above:Performed By: #### ACBC #### Testing performed at [address] [address]PEXJLMCXV DIFFNormalAVirtua VoorheesComment on above: Performed By: #### ACBC #### Testing performed at [address] [address]Pwbpupxsvbt/100 WBC (Bld)0.9 %Normal0.0-11.0[facility] HospitalComment on above:Performed By: #### ACBC #### Testing performed at [address] [address]Uhrdgosrbsg (Bld) [#/Vol]0.6 10*3/uLLow1.2-3.4AVirtua VoorheesComment on above:Performed By: #### ACBC #### Testing performed at [address] [address]Rkibcqwvjct/100 WBC (Bld)17.6 %Low20.0-55.0[facility] HospitalComment on above:Performed By: #### ACBC #### Testing performed at [address] [address]Yptnqmcct (Bld) [#/Vol]0.5 10*3/uLNormal0.0-0.7AVirtua VoorheesComment on above:Performed By: #### ACBC #### Testing performed at [address] [address]Lrrljdllp/100 WBC (Bld)14.6 %High0.0-10.0[facility] Comment on above:Performed By: #### ACBC #### Testing performed at [address] [address]Btvzsnlmljc/100 WBC (Bld)66.6 %Tefseg45.0-75.0[facility] HospitalComment on above:Performed By: #### ACBC #### Testing performed at [address] [address]Otouurpxgfc distribution width (RBC) [Ratio]14.2 %Normal 11.5-14.5AJefferson Stratford Hospital ([facility]) HospitalComment on above:Performed By: #### ACBC #### Testing performed at [address] [address]Khstcnnhcm (Bld) [Volume fraction]27.6 %Low36.0-48.0[facility] HospitalComment on above:Performed By: #### ACBC #### Testing performed at [address] [address]Fgfdnisvtc (Bld) [Mass/Vol]9.2 g/dLLow12.0-16.0[facility] HospitalComment on above:Performed By: #### ACBC #### Testing performed at [address] [address]FXK (RBC) [Entitic mass]34.3 avJvkohf05.0-35.0[facility] HospitalComment on above:Performed By: #### ACBC #### Testing performed at [address] [address]WCPO (RBC) [Mass/Vol]33.4 g/zGDdcibp02.0-37.0[facility] HospitalComment on above:Performed By: #### ACBC #### Testing performed at [address] [address]NHP (RBC) [Entitic vol]102.5 wHByrz06.0-100.0[facility] HospitalComment on above:Performed By: #### ACBC #### Testing performed at [address] [address]Taypixue mean volume (Bld) [Entitic vol]7.3 fLLow7.4-11.0[facility] HospitalComment on above:Performed By: #### ACBC #### Testing performed at [address] [address]Kpxokpofi (Bld) [#/Vol]165 10*3/dISupvln949-585Iiaxc Ontario HospitalComment on above:Performed By: #### ACBC #### Testing performed at [address] [address]EFQ (Bld) [#/Vol]2.69 10*6/uLLow4.0-5.4AVirtua Voorhees Comment on above:Performed By: #### ACBC #### Testing performed at [address] [address]YVW (Bld) [#/Vol]3.6 10*3/uLNormal3.6-11.0[facility] HospitalComment on above:Performed By: #### ACBC #### Testing performed at [address] [address]CSO FASTINGon 06-58-1109Cyskl gap [Moles/Vol]7 mmol/LNormal [facility] HospitalComment on above:Performed By: #### BRIDGETTE ACJOHN #### Testing performed at [address] [address]Gqoflkj [Mass/Vol]8.4 mg/dLNormal8.4-10.2AVirtua Voorhees Comment on above:Performed By: #### BRIDGETTE ACBC #### Testing performed at [address] [address]Wrymzxwk [Moles/Vol]106 mmol/PSduizk46-304ObcqcCooper University HospitalComment on above:Result Comment: Please note: Triglyceride levels of 600mg/dL or higher may positively bias chlorideresults by approximately 2.1 mmol Performed By: #### BRIDGETTE, ACBC #### Testing performed at [address] [address]OT7 [Moles/Vol]23 mmol/FRlrnlg06-11TshfnCooper University Hospital Comment on above:Performed By: #### BRIDGETTE, ACBC #### Testing performed at [address] [address]Wkxiglujnj [Mass/Vol]0.50 mg/dLLow0.70-1.20[facility] HospitalComment on above:Performed By: #### BRIDGETTE, ACBC #### Testing performed at [address] [address]BFK. GFR, Dacobclw484 ml/min/1.73sq.mNormalSaint James Hospital HospitalComment on above:Performed By: #### HERMELINDO ANGELES #### Testing performed at [address] [address]WYJ. GFR,Non Snhfzmve465 ml/min/1.73sq.mNormalCooper University HospitalComment on above:Performed By: #### HERMELINDO ANGELES #### Testing performed at [address] [address]ANO InformationAverage GFR for 70+ years old = 75.[facility] HospitalComment on above:Result Comment: Chronic Kidney disease, GFR = <60. Kidney failure, GFR = <15. The GFR estimate is not adjusted for extreme body surface area or acute process, nor has it been validated for women or ethnic groups other than and .Performed By: #### HERMELINDO ANGELES #### Testing performed at [address] [address]Hfsukws [Mass/Vol]125 mg/uFYdnn06-341VdrisCooper University Hospital Comment on above:Result Comment: NORMAL <100 mg/dL PREDIABETES 101-126 mg/dL DIABETES 126 mg/dL or higherPerformed By: #### HERMELINDO ANGELES #### Testing performed at [address] [address]Nnytrveka [Moles/Vol]3.4 mmol/LLow3.5-5.1AVirtua Voorhees Comment on above:Performed By: #### HERMELINDO ANGELES #### Testing performed at [address] [address]Fxrrqn [Moles/Vol]136 mmol/JDtw087-018NvvvaCooper University Hospital Comment on above:Performed By: #### HERMELINDO ANGELES #### Testing performed at [address] [address]Msob nitrogen [Mass/Vol]15 mg/dLNormal7-20[facility] HospitalComment on above:Performed By: #### HERMELINDO ANGELES #### Testing performed at [address] [address]CBYvw 14-34-6364IUDGTMWW BAS0.0 10*3/uLNormal0.0-0.2AVirtua VoorheesComment on above:Performed By: #### BMPF, ACBC #### Testing performed at [address] [address]NVHHRVDP EOS0.0 10*3/uLNormal0.0-0.7AVirtua Voorhees Comment on above:Performed By: #### BRIDGETTE, ACBC #### Testing performed at [address] [address]HLFDJBKG NEUTROPHIL COUNT4.1 10*3/uLNormal1.4-6.5AVirtua VoorheesComment on above:Performed By: #### BMPF, ACBC #### Testing performed at [address] [address]Kvgywfbba/100 WBC (Bld)0.1 %Normal0.0-2.0[facility] Comment on above:Performed By: #### BRIDGETTE, ACBC #### Testing performed at [address] [address]KAJJOLHBP DIFFNormalAVirtua VoorheesCommarshfield medical center on above: Performed By: #### BRIDGETTE, ACJOHN #### Testing performed at [address] [address]Qxpufhiqxbb/100 WBC (Bld)0.0 %Normal0.0-11.0[facility] on above:Performed By: #### BMPF, ACJOHN #### Testing performed at [address] [address]Fjgfhthzsgf distribution width (RBC) [Ratio]14.3 %Normal 11.5-14.5AVirtua VoorheesComment on above:Performed By: #### BMPF, ACBC #### Testing performed at [address] [address]Todhoffidk (Bld) [Volume fraction]30.1 %Low36.0-48.0[facility] on above:Performed By: #### BMPF, ACJOHN #### Testing performed at [address] [address]Kxgnnyzspo (Bld) [Mass/Vol]10.3 g/dLLow12.0-16.0[facility] HospitalComment on above:Performed By: #### BRIDGETTE ACJOHN #### Testing performed at [address] [address]Flpudkvalau (Bld) [#/Vol]0.4 10*3/uLLow1.2-3.4AJefferson Stratford Hospital (formerly [facility]) HospitalComment on above:Performed By: #### BRIDGETTE ACJOHN #### Testing performed at [address] [address]Cbxdaxcpqfr/100 WBC (Bld)8.1 %Low20.0-55.0[facility] HospitalComment on above:Performed By: #### BRIDGETTE ACJOHN #### Testing performed at [address] [address]BMO (RBC) [Entitic mass]34.6 zoWlxtvc66.0-35.0[facility] HospitalComment on above:Performed By: #### BRIDGETTE ACJOHN #### Testing performed at [address] [address]GIJE (RBC) [Mass/Vol]34.2 g/gZTpksip99.0-37.0[facility] HospitalComment on above:Performed By: #### HERMELINDO ANGELES #### Testing performed at [address] [address]TDP (RBC) [Entitic vol]101.3 hZLedw28.0-100.0[facility] HospitalComment on above:Performed By: #### BRIDGETTE ACJOHN #### Testing performed at [address] [address]Kzoglaoix (Bld) [#/Vol]0.4 10*3/uLNormal0.0-0.7AJefferson [facility] HospitalComment on above:Performed By: #### BRIDGETTE ACJOHN #### Testing performed at [address] [address]Iwvfhghfn/100 WBC (Bld)8.1 %Normal0.0-10.0[facility] HospitalComment on above:Performed By: #### BRIDGETTE ACJOHN #### Testing performed at [address], [place] [address]Bemtpaeplud/100 WBC (Bld)83.7 %High37.0-75.0[facility] HospitalComment on above:Performed By: #### HERMELINDO ANGELES #### Testing performed at [address], [place] [address]Atmnvgzl mean volume (Bld) [Entitic vol]7.3 fLLow7.4-11.0[facility] HospitalComment on above:Performed By: #### BRIDGETTE, HERMELINDO #### Testing performed at [address], [place] [address]Rifjazdba (Bld) [#/Vol]181 10*3/zUHafdea167-398OvhdrCooper University HospitalComment on above:Performed By: #### BRIDGETTE, HERMELINDO #### Testing performed at [address] [address]HZB (Bld) [#/Vol]2.97 10*6/uLLow4.0-5.4AVirtua Voorhees Comment on above:Performed By: #### BRIDGETTE, HERMELINDO #### Testing performed at [address], [place] [address]BVV (Bld) [#/Vol]4.9 10*3/uLNormal3.6-11.0[facility] HospitalComment on above:Performed By: #### BRIDGETTE, HERMELINDO #### Testing performed at [address], [place] [address]LEL, EDIF, PLATELETon [phone] BASOPHIL COUNT0.0 10*3/uL0.0 - 0.2 10*3/uLMarietta Osteopathic Clinic SystemBasophils/100 WBC (Bld)0.3 %0.0 - 2.0 %[facility] SouthDifferential cell count method Nom (Bld)AUTO DIFF%[facility] SouthEosinophils (Bld) [#/Vol]0.1 10*3/uL0.0 - 0.7 10*3/uLMarietta Osteopathic Clinic SystemEosinophils/100 WBC (Bld)1.8 %0.0 - 11.0 %[facility] SouthErythrocyte distribution width (RBC) [Ratio]14.5 %11.5 - 14.5 %[facility] SouthHematocrit (Bld) [Volume fraction]34.7 %Low36.0 - 48.0 %[facility] SouthHemoglobin (Bld) [Mass/Vol]11.3 g/dLFirelands Regional Medical Center South CampusInterpretation and review of laboratory resultsAbnormMadison HealthLymphocytes (Bld) [#/Vol]0.4 10*3/uLLow1.2 - 3.4 10*3/[facility] BeachwoodLymphocytes/100 WBC (Bld)11.1 %Low 20.0 - 55.0 %[facility] SouthMCH (RBC) [Entitic mass]33.4 pg26.0 - 35.0 PG [facility] SouthMCHC (RBC) [Mass/Vol]32.4 g/dLPremier Health Miami Valley Hospital SouthMCV (RBC) [Entitic vol]103.1 fLCincinnati Shriners HospitalMonocytes (Bld) [#/Vol]0.4 10*3/uL 0.0 - 0.7 10*3/[facility], BeachwoodMonocytes/100 WBC (Bld)11.1 %High0.0 - 10.0 %[facility] SouthNeutrophils (Bld) [#/Vol]2.6 10*3/uL1.4 - 6.5 10*3/[facility], BeachwoodNeutrophils/100 WBC (Bld)75.7 %High37.0 - 75.0 %[facility] Platelet mean volume (Bld) [Entitic vol]7.2 fLFirelands Regional Medical Center South CampusPlatelets (Bld) [#/Vol]175 10*3/uL130 - 400 10*3/[facility], BeachwoodRBC (Bld) [#/Vol] 3.37 10*6/uLLow4.0 - 5.4 10*6/[facility], BeachwoodWBC (Bld) [#/Vol]3.5 10*3/uL Low3.6 - 11.0 10*3/[facility] InstituteCOMPREHENSIVE METABOLIC PANELon [phone] [Mass/Vol]3.8 G/dl3.5 - 5.0 G/dlPremier Health Miami [facility] Hospital SouthAlbumin/Globulin [Mass ratio]1.7 {ratio}RATIOPremier Health Miami Valley Hospital SouthALP [Catalytic activity/Vol]61 U/[facility] SystemALT [Catalytic activity/Vol]26 U/LNINFMarietta Osteopathic Clinic SystemAST [Catalytic activity/Vol]36 U/[facility] System Bilirubin [Mass/Vol]0.7 mg/dLPremier Health Miami Valley Hospital SouthCalcium [Mass/Vol]9.4 mg/dLPremier Health Miami [facility] Hospital SouthChloride [Moles/Vol]104 mmol/[facility] SystemComment on above: Please note: Triglyceride levels of 600mg/dL or higher may positively bias chloride results by approximately 2.1 mmolCO2 [Moles/Vol]28 mmol/[facility] SystemCreatinine [Mass/Vol]0.60 mg/dLLowPremier Health Miami Valley Hospital SouthGFR COMMENTAverage GFR for 70+ years old = 75.[facility] SouthComment on above:Chronic Kidney disease, GFR = <60. Kidney failure, GFR = <15. The GFR estimate is not adjusted for extreme body surface area or acute process, nor has it been validated for women or ethnic groups other than and . GFR/1.73 sq M.predicted among blacks MDRD (S/P/Bld) [Vol rate/Area]127 mL/min/{1.73_m2}ml/min/1.73sq.mACincinnati Shriners HospitalGFR/1.73 sq M.predicted among non-blacks MDRD (S/P/Bld) [Vol rate/Area]105 mL/min/{1.73_m2}ml/min/1.73sq.m [facility] SouthGlucose post fast [Mass/Vol]91 mg/dLPremier Health Miami [facility] South Comment on above: NORMAL <100 mg/dL PREDIABETES 101-126 mg/dL DIABETES 126 mg/dL or higher Interpretation and review of laboratory resultsAbnormMadison Health Potassium [Moles/Vol]3.9 mmol/[facility] SystemProtein [Mass/Vol]6.1 g/dLProtestant Hospitalodium [Moles/Vol]135 mmol/LLoWright-Patterson Medical CenterUrea nitrogen [Mass/Vol]12 mg/dLMercy Health St. Vincent Medical CenterECGOrdered By: Delgado Huffman on [phone] Shriners Hospital Work Phone: HEMOGLOBIN A1Con [phone] [Mass/Vol]100 mg/dL [facility] SouthHbA1c (Bld) [Mass fraction]5.1 %0 - 6 %[facility] Comment on above: NORMAL <5.7% PREDIABETES 5.7-6.4% DIABETES 6.5% OR HIGHER [facility] SouthPROTIME-INRon [phone] Coag (PPP) [Relative time]0.94 {INR}0.85 - 1.10ACincinnati Shriners HospitalComment on above: 2.0-3.0 THERAPEUTIC RANGE 2.5-3.5 MECHANICAL VALVE RANGE PT Coag (PPP) [Time]12.7 [facility] Medical CenterCREEN: MRSA ONLY, NARES (ISOLATION SCREEN)on [phone] isol Org specific cx Ql (Nose) NegativeNEGMercy Health St. Anne HospitalTAPHYOCOCCUS AUREUS BY PCRNegativeNEGATIVE [facility] SouthComment on above:TESTING PERFORMED BY [facility] URINALYSIS, MACROon [id number] Ql (U)NegativeNEGATIVEPremier Health Miami [facility] Hospital SouthClarity (U)CLEARCLEARACincinnati Shriners HospitalColor (U)YELLOWYELLOWPrem[facility] Hospital SouthGlucose Test strip (U) [Mass/Vol]NegativeNEGATIVE mg/dlPrem[facility] South Hemoglobin Ql (U)NegativeNEGATIVEMarietta Osteopathic Clinic SystemKetones (U) [Mass/Vol] NegativeNEGATIVE mg/dlPrem[facility] Health [facility] SouthLeukocyte esterase Test strip Ql (U) NegativeNEGATIVEPrem[facility] Health [facility] Hospital SouthNitrite Ql (U)NegativeNEGOhioHealth Southeastern Medical CenterpH (U)7.0 [pH]5.0 - 7.0[facility] SouthProtein Ql (U)NegativeNEGATIVE mg/dlAdena Health Systempecific gravity (U) [Rel density]1.0151.010 - 1.025 [facility] SouthUrobilinogen (U) [Mass/Vol]0.2 mg/dLMercy Health St. Vincent Medical CenterC3 and C4 COMPLEMENTon 37-92-8187Lnxqdraxsx C3, Hrgtt208 mg/dL Rmoizz21-445Tbu [facility] on above:Performed By: #### LIVER, LIPID, TSH, FT3, T4 #### [facility] [address] [address] [address] Frank Vences C4, Serum36 mg/jMCtulyi89-48JwxEast [facility] Comment on above:Performed By: #### LIVER, LIPID, TSH, FT3, T4 #### [facility] [address] [place] [address] Dr. Frank Vences TOTAL (CH50)on 14-51-3404Oxcnmprqqo, Total (CH50)>60 Normal>41The [facility] on above:Result Comment: Age Male Female [...] of range values.Performed By: #### CH50T #### [facility] [address] [place] [address] Dr. Frank Vazquez AUTO DIFFon [id number] #0.0 103/ulNormal0.0-0.1[facility] on above:Performed By: #### CBC #### [facility] [address] [place] [address] Dr. Frank HillsBasophils/100 WBC (Bld)0.3 %Normal0.2-2.0[facility] Comment on above:Performed By: #### CBC #### [facility] [address] [place] [address] Dr. Frank Cali #0.1 103/ulNormal0.0-0.7The [facility] on above: Performed By: #### CBC #### [facility] [address] [place] [address] Dr. Frank Patriciaosinophils/100 WBC (Bld)1.6 %Normal0.9-7.0[facility] Comment on above:Performed By: #### CBC #### [facility] [address] [place] [address] Dr. Frank Patriciarythrocyte distribution width (RBC) [Ratio]13.6 %Tpnvin54.0-15.0 The [facility] CenterComment on above:Performed By: #### CBC #### [facility] [address] [place] [address] Dr. Frank HillsHematocrit (Bld) [Volume fraction]36.4 %Vifdez44.0-48.0[facility] HospitalComment on above:Performed By: #### CBC #### [facility] [address] [place] [address] Dr. Frank HillsHemoglobin (Bld) [Mass/Vol]11.8 g/dLCritically low12.0-16.0[facility] HospitalComment on above:Performed By: #### CBC #### [facility] [address] [place] [address] Dr. Frank Smith #0.01 10e3/ulNormal0.00-0.03The [facility] CenterComment on above:Performed By: #### CBC #### [facility] [address] [place] [address] Dr. Frank Smith %0.3 %Normal0.0-0.5The [facility] CenterComment on above: Performed By: #### CBC #### [facility] [address] [place] [address] Dr. Frank HaysH #0.6 103/ulCritically low1.2-3.8The [facility] Comment on above:Performed By: #### CBC #### [facility] [address] [place] [address] Dr. Frank Alfredmphocytes/100 WBC (Bld)15.3 %Critically low20.5-60.0[facility] HospitalComment on above:Performed By: #### CBC #### [facility] [address] [place] [address] Dr. Frank BarkerUAL DIFF REQNONormalThe [facility] CenterComment on above: Performed By: #### CBC #### [facility] [address] [place] [address] Dr. Frank Doran (RBC) [Entitic mass]33.2 swRiluiq20.7-34.0The [facility] CenterComment on above:Performed By: #### CBC #### [facility] [address] [place] [address] Dr. Frank Doran (RBC) [Mass/Vol]32.4 g/pMXdyutx98.9-35.2The [facility]oman HospitalComment on above:Performed By: #### CBC #### [facility] [address] [place] [address] Dr. Frank Doran (RBC) [Entitic vol]102.5 fLCritically high81.0-99.0The [facility] CenterComment on above:Performed By: #### CBC #### [facility] [address] [place] [address] Dr. Frank Ponce #0.5 103/ulNormal0.3-0.8The [facility] CenterComment on above:Performed By: #### CBC #### [facility] [address] [place] [address] Dr. Frank Babinocytes/100 WBC (Bld)12.5 %Critically high1.7-12.0The [facility] CenterComment on above:Performed By: #### CBC #### [facility] [address] [place] [address] Dr. Frank Redding #2.6 103/ulNormal1.4-6.5The [facility] CenterComment on above:Performed By: #### CBC #### [facility] [address] [place] [address] Dr. Frank Mooneyutrophils/100 WBC (Bld)70.0 %Pildif07.0-75.0The [facility] CenterComment on above:Performed By: #### CBC #### [facility] [address] [place] [address] Dr. Frank León mean volume (Bld) [Entitic vol]9.0 fLCritically low 9.5-13.5The [facility] Hospitalment on above:Performed By: #### CBC #### [facility] [address] [place] [address] Dr. Farnk HillsPLT192 103/zzJduwmt586-716Qvh [facility] on above: Performed By: #### CBC #### [facility] [address] [place] [address] Dr. Frank HillsRBC3.55 106/ulCritically low4.20-5.40The [facility] on above:Performed By: #### CBC #### [facility] [address] [place] [address] Dr. Frank HillsWBC3.7 103/ulCritically low4.0-11.0The [facility] on above:Performed By: #### CBC #### [facility] [address] [place] [address] Dr. Frank HillsPROF 14(COMP METB)on 55-59-9657Epjpmet [Mass/Vol]3.7 g/dLNormal 3.4-5.0[facility] on above:Performed By: #### LIVER, LIPID, TSH, FT3, T4 #### [facility] [address] [place] [address] Dr. Frank HillsAlbumin/Globulin [Mass ratio]1.2 {ratio}NormalThe [facility] on above:Performed By: #### LIVER, LIPID, TSH, FT3, T4 #### [facility] [address] [place] [address] Dr. Frank Chung [Catalytic activity/Vol]66 U/FUlgqze34-467Rdb [facility] on above:Performed By: #### LIVER, LIPID, TSH, FT3, T4 #### [facility] [address] [place] [address] Dr. Frank Jung [Catalytic activity/Vol]29 U/YOkvlpc12-34Jiq [facility] Hospitalment on above:Performed By: #### LIVER, LIPID, TSH, FT3, T4 #### [facility] [address] [place] [address] Dr. Frank HillsAnion gap [Moles/Vol]11.6 mmol/LNormalEast [facility] Regional Hospital Comment on above:Performed By: #### LIVER, LIPID, TSH, FT3, T4 #### [facility] [address] [place] [address] Dr. Frank HillsAST [Catalytic activity/Vol]27 U/LVtjwln94-92Cay [facility] CenterComment on above:Performed By: #### LIVER, LIPID, TSH, FT3, T4 #### [facility] [address] [place] [address] Dr. Frank HillsBilirubin [Mass/Vol]0.7 mg/dLNormal0.2-1.0[facility] Comment on above:Performed By: #### LIVER, LIPID, TSH, FT3, T4 #### [facility] [address] [place] [address] Dr. Frank HillsCalcium [Mass/Vol]9.1 mg/dLNormal8.5-10.1[facility] Comment on above:Performed By: #### LIVER, LIPID, TSH, FT3, T4 #### [facility] [address] [place] [address] Dr. Frank HillsChloride [Moles/Vol]105 mmol/ZLxpqqa10-081ZfgEast [facility] Regional Hospital Comment on above:Performed By: #### LIVER, LIPID, TSH, FT3, T4 #### [facility] [address] [place] [address] Dr. Frank HillsCO2 [Moles/Vol]29.5 mmol/IQnxyzy64.0-32.0The [facility] Comment on above:Performed By: #### LIVER, LIPID, TSH, FT3, T4 #### [facility] [address] [place] [address] Dr. Frank HillsCreatinine [Mass/Vol]0.57 mg/dLNormal0.55-1.02The [facility] CenterComment on above:Performed By: #### LIVER, LIPID, TSH, FT3, T4 #### [facility] [address] [place] [address] Dr. Frank PatriciaGFR-AF ARGENTINE>60Normal>=60The [facility] CenterComment on above:Performed By: #### LIVER, LIPID, TSH, FT3, T4 #### [facility] [address] [place] [address] Dr. Frank PatriciaGFR-NON AF ARGENTINE>60Normal>=60The [facility] CenterComment on above:Performed By: #### LIVER, LIPID, TSH, FT3, T4 #### [facility] [address] [place] [address] Dr. Frank HillsGlobulin (S) [Mass/Vol]3.1 g/dLNormalThe [facility] CenterComment on above:Performed By: #### LIVER, LIPID, TSH, FT3, T4 #### [facility] [address] [place] [address] Dr. Frank HillsGlucose [Mass/Vol]95 mg/aBEoyraf05-818QkjEast [facility] Hospital Comment on above:Performed By: #### LIVER, LIPID, TSH, FT3, T4 #### [facility] [address] [place] [address] Dr. Frank HillsPotassium [Moles/Vol]5.1 mmol/LNormal3.5-5.1[facility] Comment on above:Performed By: #### LIVER, LIPID, TSH, FT3, T4 #### [facility] [address] [place] [address] Dr. Farnk HillsProtein [Mass/Vol]6.8 g/dLNormal6.4-8.2[facility] Comment on above:Performed By: #### LIVER, LIPID, TSH, FT3, T4 #### [facility] [address] [place] [address] Dr. Frank HillsSodium [Moles/Vol]141 mmol/CFwumxz449-932WpkEast [facility] Regional Hospital Comment on above:Performed By: #### LIVER, LIPID, TSH, FT3, T4 #### [facility] [address] [address] [address] Frank Noble nitrogen [Mass/Vol]13.0 mg/dLNormal7.0-18.0The [facility] CenterComment on above:Performed By: #### LIVER, LIPID, TSH, FT3, T4 #### [facility] [address] [address] [address] Frank Noble nitrogen/Creatinine [Mass ratio]22.8 mg/mgNormalThe [facility] CenterComment on above:Performed By: #### LIVER, LIPID, TSH, FT3, T4 #### [facility] [address] [place] [address] Dr. Frank Díaz RATE WESTERGRENon 91-69-1621YTY RATE9 mm/hrNormal<=30The [facility] Hospitalment on above:Performed By: #### LIVER, LIPID, TSH, FT3, T4 #### [facility] [address] [place] [address] Dr. Frank Gray RANDOM W/MICROSCOPICon [id number] SEENNormalNONE SEENEast Ohio Regional HospitalComment on above:Performed By: #### LIVER, LIPID, TSH, FT3, T4 #### [facility] [address] [place] [address] Dr. Frank Padgett Ql (U)NegativeNormalNEGATIVEThe [facility] Comment on above:Performed By: #### LIVER, LIPID, TSH, FT3, T4 #### [facility] [address] [place] [address] Dr. Frank Elam SEENNormalNONE SEENEast Ohio Regional HospitalComment on above:Performed By: #### LIVER, LIPID, TSH, FT3, T4 #### [facility] [address] [place] [address] Dr. Frank Ness (U)CLEARNormalCLEARThe [facility] CenterComment on above: Performed By: #### LIVER, LIPID, TSH, FT3, T4 #### [facility] [address] [place] [address] Dr. Frank Cornell (U)LT. YELLOWNormalYELLOWEast Ohio Regional HospitalComment on above:Performed By: #### LIVER, LIPID, TSH, FT3, T4 #### [facility] [address] [address] [address] Frank HillsCrystals LM Nom (Urine sed)NONE SEENNormalNONE SEENEast Ohio Regional HospitalComment on above:Performed By: #### LIVER, LIPID, TSH, FT3, T4 #### [facility] [address] [address] [address] Marie ChangEpithelial cells LM Ql (Urine sed)RARENormalNONE SEEN /RAREEast Ohio Regional HospitalComment on above:Performed By: #### LIVER, LIPID, TSH, FT3, T4 #### [facility] [address] [address] [address] Frank HillsGlucose Ql (U)NegativeNormalNEGATIVEEast Ohio Regional HospitalComment on above:Performed By: #### LIVER, LIPID, TSH, FT3, T4 #### [facility] [address] [address] [address] Frank HillsHemoglobin Ql (U)NegativeNormalNEGATIVEEast [facility] Regional Hospital Comment on above:Performed By: #### LIVER, LIPID, TSH, FT3, T4 #### [facility] [address] [address] [address] Frank HillsKetones Ql (U)NegativeNormalNEGATIVEEast Ohio Regional HospitalComment on above:Performed By: #### LIVER, LIPID, TSH, FT3, T4 #### [facility] [address] [address] [address] Frank HillsLEUKOCYTESNegativeNormalNEGATIVEEast Ohio Regional HospitalComment on above:Performed By: #### LIVER, LIPID, TSH, FT3, T4 #### [facility] [address] [address] [address] Frank HillsMUCOUSNONE SEENNormalNONE SEENEast Ohio Regional HospitalComment on above:Performed By: #### LIVER, LIPID, TSH, FT3, T4 #### [facility] [address] [address] [address] Frank Nieves Ql (U)NegativeNormalNEGATIVEThe [facility] CenterComment on above:Performed By: #### LIVER, LIPID, TSH, FT3, T4 #### [facility] [address] [address] [address] Frank HillspH (U)6.5 [pH]Normal5-9The [facility] CenterComment on above: Performed By: #### LIVER, LIPID, TSH, FT3, T4 #### [facility] [address] [address] [address] Frank RiveraCNCARMELITA SEENAbnormal0-2The [facility] CenterComment on above: Performed By: #### LIVER, LIPID, TSH, FT3, T4 #### [facility] [address] [place] [address] Dr. Frank HillsSPEC GRAVITY1.529Rqulld4.005-<=1.025The [facility] Hospitalment on above:Performed By: #### LIVER, LIPID, TSH, FT3, T4 #### [facility] [address] [place] [address] Dr. Frank HillsUA PROTEINNegativeNormalNEGATIVE/ TRACEThe [facility] Comment on above:Performed By: #### LIVER, LIPID, TSH, FT3, T4 #### [facility] [address] [place] [address] Dr. Frank Villeda Qn (U)0.2 {Flaquita'U}/dLNormal0.2 - 1.0The [facility] Hospitalment on above:Performed By: #### LIVER, LIPID, TSH, FT3, T4 #### [facility] [address] [place] [address] Dr. Frank BarajasBCNONE SEENNormalNONE SEENThe [facility] CenterComment on above: Performed By: #### LIVER, LIPID, TSH, FT3, T4 #### [facility] [address] [place] [address] Dr. Frank HillsC3 and C4 COMPLEMENTon 11-30-8447Kbdxownsud C3, Jspdy830 mg/dL Jbsesj33-063Cho [facility] CenterComment on above:Performed By: #### LIVER, LIPID, TSH, FT3, T4 #### [facility] [address] [place] [address] Dr. Frank Vences C4, Serum33 mg/qFXlyuai80-86Hmp [facility] Comment on above:Performed By: #### LIVER, LIPID, TSH, FT3, T4 #### [facility] [address] [place] [address] Dr. Frank Vences TOTAL (CH50)on 19-73-0454Lgjrloklyq, Total (CH50)>60 Normal>41The [facility] CenterComment on above:Result Comment: Age Male Female 1 [...] #### LIVER, LIPID, TSH, FT3, T4 #### [facility] [address] [place] [address] Dr. Frank Vazquez AUTO DIFFon 95-58-1361DDQI #0.0 103/ulNormal0.0-0.1The [facility] on above:Performed By: #### LIVER, LIPID, TSH, FT3, T4 #### [facility] [address] [place] [address] Dr. Frank HillsBasophils/100 WBC (Bld)1.0 %Normal0.2-2.0[facility] Comment on above:Performed By: #### LIVER, LIPID, TSH, FT3, T4 #### [facility] [address] [place] [address] Dr. Frank Cali #0.1 103/ulNormal0.0-0.7The [facility] CenterCommarshfield medical center on above: Performed By: #### LIVER, LIPID, TSH, FT3, T4 #### [facility] [address] [place] [address] Dr. Frank Patriciaosinophils/100 WBC (Bld)1.8 %Normal0.9-7.0The [facility] Comment on above:Performed By: #### LIVER, LIPID, TSH, FT3, T4 #### [facility] [address] [place] [address] Dr. Frank Patriciarythrocyte distribution width (RBC) [Ratio]13.8 %Stsmnt62.0-15.0 The [facility] CenterComment on above:Performed By: #### LIVER, LIPID, TSH, FT3, T4 #### [facility] [address] [place] [address] Dr. Frank HillsHematocrit (Bld) [Volume fraction]36.3 %Zrsrbu17.0-48.0The [facility] CenterComment on above:Performed By: #### LIVER, LIPID, TSH, FT3, T4 #### [facility] [address] [place] [address] Dr. Frank HillsHemoglobin (Bld) [Mass/Vol]11.9 g/dLCritically low12.0-16.0The [facility] CenterComment on above:Performed By: #### LIVER, LIPID, TSH, FT3, T4 #### [facility] [address] [place] [address] Dr. Frank Smith #0.02 10e3/ulNormal0.00-0.03The [facility] CenterComment on above:Performed By: #### LIVER, LIPID, TSH, FT3, T4 #### [facility] [address] [place] [address] Dr. Frank Smith %0.5 %Normal0.0-0.5The [facility] CenterComment on above: Performed By: #### LIVER, LIPID, TSH, FT3, T4 #### [facility] [address] [place] [address] Dr. Frank HaysH #0.7 103/ulCritically low1.2-3.8The [facility] Comment on above:Performed By: #### LIVER, LIPID, TSH, FT3, T4 #### [facility] [address] [place] [address] Dr. Frank Alfredmphocytes/100 WBC (Bld)18.0 %Critically low20.5-60.0The [facility] CenterComment on above:Performed By: #### LIVER, LIPID, TSH, FT3, T4 #### [facility] [address] [place] [address] Dr. Frank Baker DIFF REQNONormalThe [facility] CenterComment on above: Performed By: #### LIVER, LIPID, TSH, FT3, T4 #### [facility] [address] [place] [address] Dr. Frank Doran (RBC) [Entitic mass]34.2 pgCritically high26.7-34.0The [facility] CenterComment on above:Performed By: #### LIVER, LIPID, TSH, FT3, T4 #### [facility] [address] [place] [address] Dr. Frank Doran (RBC) [Mass/Vol]32.8 g/xFJvxugp91.9-35.2The [facility] CenterComment on above:Performed By: #### LIVER, LIPID, TSH, FT3, T4 #### [facility] [address] [place] [address] Dr. Frank Doran (RBC) [Entitic vol]104.3 fLCritically high81.0-99.0The [facility] CenterComment on above:Performed By: #### LIVER, LIPID, TSH, FT3, T4 #### [facility] [address] [place] [address] Dr. Frank Ponce #0.4 103/ulNormal0.3-0.8The [facility] Hospitalment on above:Performed By: #### LIVER, LIPID, TSH, FT3, T4 #### [facility] [address] [place] [address] Dr. Frank Babinocytes/100 WBC (Bld)10.0 %Normal1.7-12.0The [facility] Comment on above:Performed By: #### LIVER, LIPID, TSH, FT3, T4 #### [facility] [address] [address] [address] Frank Redding #2.7 103/ulNormal1.4-6.5The [facility] Hospitalment on above:Performed By: #### LIVER, LIPID, TSH, FT3, T4 #### [facility] [address] [place] [address] Dr. Frank Mooneyutrophils/100 WBC (Bld)68.7 %Txkkvv24.0-75.0The [facility] CenterComment on above:Performed By: #### LIVER, LIPID, TSH, FT3, T4 #### [facility] [address] [place] [address] Dr. Frank HillsPlatelet mean volume (Bld) [Entitic vol]9.4 fLCritically low 9.5-13.5The [facility] CenterComment on above:Performed By: #### LIVER, LIPID, TSH, FT3, T4 #### [facility] [address] [place] [address] Dr. Frank HillsPLT187 103/vlAghrok377-573Zqt [facility] Hospitalment on above: Performed By: #### LIVER, LIPID, TSH, FT3, T4 #### [facility] [address] [place] [address] Dr. Frank HillsRBC3.48 106/ulCritically low4.20-5.40The [facility] Hospitalment on above:Performed By: #### LIVER, LIPID, TSH, FT3, T4 #### [facility] [address] [place] [address] Dr. Frank HillsWBC3.9 103/ulCritically low4.0-11.0The [facility] Hospitalment on above:Performed By: #### LIVER, LIPID, TSH, FT3, T4 #### [facility] [address] [place] [address] Dr. Frank KyleF 14(COMP METB)on [id number] [Mass/Vol]3.9 g/dLNormal 3.4-5.0The [facility] CenterComment on above:Performed By: #### LIVER, LIPID, TSH, FT3, T4 #### [facility] [address] [place] [address] Dr. Frank HillsAlbumin/Globulin [Mass ratio]1.3 {ratio}NormalThe [facility] CenterComment on above:Performed By: #### LIVER, LIPID, TSH, FT3, T4 #### [facility] [address] [place] [address] Dr. Frank Chung [Catalytic activity/Vol]63 U/XWuricn56-974Jbv [facility] CenterComment on above:Performed By: #### LIVER, LIPID, TSH, FT3, T4 #### [facility] [address] [place] [address] Dr. Frank Jung [Catalytic activity/Vol]27 U/UTyfgix93-38Jmg [facility] CenterComment on above:Performed By: #### LIVER, LIPID, TSH, FT3, T4 #### [facility] [address] [place] [address] Dr. Frank Gan gap [Moles/Vol]8.4 mmol/LNormalThe [facility] CenterComment on above:Performed By: #### LIVER, LIPID, TSH, FT3, T4 #### [facility] [address] [place] [address] Dr. Frank Baker [Catalytic activity/Vol]31 U/NXwaiil61-27Sts [facility] CenterComment on above:Performed By: #### LIVER, LIPID, TSH, FT3, T4 #### [facility] [address] [place] [address] Dr. Frank HillsBilirubin [Mass/Vol]0.7 mg/dLNormal0.2-1.0The [facility] Comment on above:Performed By: #### LIVER, LIPID, TSH, FT3, T4 #### [facility] [address] [place] [address] Dr. Frank HillsCalcium [Mass/Vol]9.0 mg/dLNormal8.5-10.1[facility] Comment on above:Performed By: #### LIVER, LIPID, TSH, FT3, T4 #### [facility] [address] [address] [address] Frank HillsChloride [Moles/Vol]102 mmol/YSueazh29-102ExhEast [facility] Hospital Comment on above:Performed By: #### LIVER, LIPID, TSH, FT3, T4 #### [facility] [address] [place] [address] Dr. Frank HillsCO2 [Moles/Vol]30.8 mmol/HRwwkau13.0-32.0[facility] Comment on above:Performed By: #### LIVER, LIPID, TSH, FT3, T4 #### [facility] [address] [place] [address] Dr. Frank HillsCreatinine [Mass/Vol]0.62 mg/dLNormal0.55-1.02[facility] HospitalComment on above:Performed By: #### LIVER, LIPID, TSH, FT3, T4 #### [facility] [address] [place] [address] Dr. Frank PatriciaGFR-AF ARGENTINE>60Normal>=60[facility] HospitalComment on above:Performed By: #### LIVER, LIPID, TSH, FT3, T4 #### [facility] [address] [place] [address] Dr. Frank PatriciaGFR-NON AF ARGENTINE>60Normal>=60[facility] HospitalComment on above:Performed By: #### LIVER, LIPID, TSH, FT3, T4 #### [facility] [address] [place] [address] Dr. Frank HillsGlobulin (S) [Mass/Vol]3.1 g/dLNormalThe [facility] CenterComment on above:Performed By: #### LIVER, LIPID, TSH, FT3, T4 #### [facility] [address] [place] [address] Dr. Frank HillsGlucose [Mass/Vol]102 mg/vDIxvbjs67-718HlnEast [facility] Hospital Comment on above:Performed By: #### LIVER, LIPID, TSH, FT3, T4 #### [facility] [address] [place] [address] Dr. Frank HillsPotassium [Moles/Vol]4.2 mmol/LNormal3.5-5.1The [facility] Comment on above:Performed By: #### LIVER, LIPID, TSH, FT3, T4 #### [facility] [address] [place] [address] Dr. Frank HillsProtein [Mass/Vol]7.0 g/dLNormal6.4-8.2[facility] Comment on above:Performed By: #### LIVER, LIPID, TSH, FT3, T4 #### [facility] [address] [place] [address] Dr. Frank HillsSodium [Moles/Vol]137 mmol/BGmigfz438-541CnbEast [facility] Regional Hospital Comment on above:Performed By: #### LIVER, LIPID, TSH, FT3, T4 #### [facility] [address] [place] [address] Dr. Frank HillsUrea nitrogen [Mass/Vol]15.0 mg/dLNormal7.0-18.0[facility] HospitalComment on above:Performed By: #### LIVER, LIPID, TSH, FT3, T4 #### [facility] [address] [place] [address] Dr. Frank Noble nitrogen/Creatinine [Mass ratio]24.2 mg/mgNormalThe [facility] CenterComment on above:Performed By: #### LIVER, LIPID, TSH, FT3, T4 #### [facility] [address] [place] [address] Dr. Frank Díaz RATE WESTERGREN 26-10-5922XES RATE8 mm/hrNormal<=30[facility] HospitalComment on above:Performed By: #### LIVER, LIPID, TSH, FT3, T4 #### [facility] [address] [place] [address] Dr. Frank Gray RANDOM W/MICROSCOPICon [id number] SEENNormalNONE SEENThe [facility] CenterComment on above:Performed By: #### LIVER, LIPID, TSH, FT3, T4 #### [facility] [address] [address] [address] Frank HillsBilirubin Ql (U)NegativeNormalNEGATIVEEast [facility] Comment on above:Performed By: #### LIVER, LIPID, TSH, FT3, T4 #### [facility] [address] [address] [address] Frank Elam SEENNormalNONE SEENProMedica Fost[facility] on above:Performed By: #### LIVER, LIPID, TSH, FT3, T4 #### [facility] [address] [address] [address] Frank Costaarity (U)CLEARNormalCLEARProMedica Fostoria Community Hospital on above: Performed By: #### LIVER, LIPID, TSH, FT3, T4 #### [facility] [address] [address] [address] Frank Cornell (U)LT. YELLOWNormalYELLOWEast [facility] Regional HospitalComment on above:Performed By: #### LIVER, LIPID, TSH, FT3, T4 #### [facility] [address] [address] [address] Frank HillsCrystals LM Nom (Urine sed)NONE SEENNormalNONE SEENProMedica Fostoria Community Hospital on above:Performed By: #### LIVER, LIPID, TSH, FT3, T4 #### [facility] [address] [address] [address] Marie ChangEpithelial cells LM Ql (Urine sed)NONE SEENNormalNONE SEEN /RARE [facility] HospitalCommarshfield medical center on above:Performed By: #### LIVER, LIPID, TSH, FT3, T4 #### [facility] [address] [address] [address] Frank HillsGlucose Ql (U)NegativeNormalNEGATIVEProMedica Fostoria Community Hospital on above:Performed By: #### LIVER, LIPID, TSH, FT3, T4 #### [facility] [address] [address] [address] Frank HillsHemoglobin Ql (U)NegativeNormalNEGATIVEEast [facility] Comment on above:Performed By: #### LIVER, LIPID, TSH, FT3, T4 #### [facility] [address] [address] [address] Frank Kerr Ql (U)NegativeNormalNEGATIVEEast [facility] Regional HospitalComment on above:Performed By: #### LIVER, LIPID, TSH, FT3, T4 #### [facility] [address] [address] [address] Frank HillsLEUKOCYTESNegativeNormalNEGATIVEThe [facility] CenterComment on above:Performed By: #### LIVER, LIPID, TSH, FT3, T4 #### [facility] [address] [place] [address] Dr. Frank Calle SEENNormalNONE SEENThe [facility] CenterComment on above:Performed By: #### LIVER, LIPID, TSH, FT3, T4 #### [facility] [address] [place] [address] Dr. Frank Nieves Ql (U)NegativeNormalNEGATIVEEast [facility] Regional HospitalComment on above:Performed By: #### LIVER, LIPID, TSH, FT3, T4 #### [facility] [address] [place] [address] Dr. Frank HillspH (U)6.5 [pH]Normal5-9The [facility] CenterComment on above: Performed By: #### LIVER, LIPID, TSH, FT3, T4 #### [facility] [address] [place] [address] Dr. Frank HillsDjrqnQHB4-7Fheuad4-2Kxp [facility] CenterComment on above:Performed By: #### LIVER, LIPID, TSH, FT3, T4 #### [facility] [address] [place] [address] Dr. Frank HillsSPEC GRAVITY1.929Oxnrza9.005-<=1.025The [facility] CenterComment on above:Performed By: #### LIVER, LIPID, TSH, FT3, T4 #### [facility] [address] [place] [address] Dr. Frank Gray PROTEINNegativeNormalNEGATIVE/ TRACEThe [facility] Comment on above:Performed By: #### LIVER, LIPID, TSH, FT3, T4 #### [facility] [address] [address] [address] Frank Villeda Qn (U)0.2 {Flaquita'U}/dLNormal0.2 - 1.0The [facility] CenterComment on above:Performed By: #### LIVER, LIPID, TSH, FT3, T4 #### [facility] [address] [place] [address] Dr. Frank HillsWBCNONCompa SEENWhite PlainsNONE SEENEast [facility] Regional HospitalComment on above: Performed By: #### LIVER, LIPID, TSH, FT3, T4 #### [facility] [address] [place] [address] Dr. Frank HillsINSULINon [id number] uIU/mLNormal2.6-24.9The [facility] CenterComment on above:Performed By: #### LIVER, LIPID, TSH, FT3, T4 #### [facility] [address] [place] [address] Dr. Frank Vazquez W MANUAL DIFFon [id number]Afs Bellevue HospitalComment on above:Performed By: #### LIVER, LIPID, TSH, FT3, T4 #### [facility] [address] [place] [address] Dr. Frank Camargo LYMPH #NormalProMedica Fostoria Community Hospital on above: Performed By: #### LIVER, LIPID, TSH, FT3, T4 #### [facility] [address] [place] [address] Dr. Frank Camargo LYMPH %NormalEast [facility] Regional HospitalCommarshfield medical center on above: Performed By: #### LIVER, LIPID, TSH, FT3, T4 #### [facility] [address] [place] [address] Dr. Frank Simons #Normal0.0-0.3The [facility] CenterComment on above: Performed By: #### LIVER, LIPID, TSH, FT3, T4 #### [facility] [address] [address] [address] Frank Simons %Normal0-5The [facility] CenterComment on above:Performed By: #### LIVER, LIPID, TSH, FT3, T4 #### [facility] [address] [address] [address] Frank Adler #0.00 103/ulNormal0.00-0.10The [facility] CenterCommarshfield medical center on above:Performed By: #### LIVER, LIPID, TSH, FT3, T4 #### [facility] [address] [place] [address] Dr. Frank Adler %0.0 %Critically low0.2-2.0The [facility] on above:Performed By: #### LIVER, LIPID, TSH, FT3, T4 #### [facility] [address] [place] [address] Dr. Frank Singer #NormalProMedica Fostoria Community Hospital on above:Performed By: #### LIVER, LIPID, TSH, FT3, T4 #### [facility] [address] [place] [address] Dr. Frank Singer %NormalProMedica Fostoria Community Hospital on above:Performed By: #### LIVER, LIPID, TSH, FT3, T4 #### [facility] [address] [place] [address] Dr. Frank HillsCORRECTED WBCNormal4.0-11.0The [facility] on above: Performed By: #### LIVER, LIPID, TSH, FT3, T4 #### [facility] [address] [place] [address] Dr. Frank Hernandez #0.06 103/ulNormal0.00-0.70The [facility] on above:Performed By: #### LIVER, LIPID, TSH, FT3, T4 #### [facility] [address] [place] [address] Dr. Frank Hernandez%2.0 %Normal0.9-7.0The [facility] HospitalComment on above: Performed By: #### LIVER, LIPID, TSH, FT3, T4 #### [facility] [address] [place] [address] Dr. Frank HillsHCT35.6 %Critically low36.0-48.0The [facility] CenterComment on above:Performed By: #### LIVER, LIPID, TSH, FT3, T4 #### [facility] [address] [place] [address] Dr. Frank HillsHGB11.4 g/dlCritically low12.0-16.0The [facility] Hospitalment on above:Performed By: #### LIVER, LIPID, TSH, FT3, T4 #### [facility] [address] [place] [address] Dr. Frank Mcgowan #0.48 103/ulCritically low1.20-3.80The [facility] on above:Performed By: #### LIVER, LIPID, TSH, FT3, T4 #### [facility] [address] [place] [address] Dr. Frank Mcgowan%17.0 %Critically low20.5-60.0The [facility] on above:Performed By: #### LIVER, LIPID, TSH, FT3, T4 #### [facility] [address] [place] [address] Dr. Frank HillsMCH33.4 rbPztjch80.7-34.0The [facility] Hospitalment on above: Performed By: #### LIVER, LIPID, TSH, FT3, T4 #### [facility] [address] [place] [address] Dr. Frank HillsMCHC32.0 g/jhHteumr60.9-35.2The [facility] Hospitalment on above:Performed By: #### LIVER, LIPID, TSH, FT3, T4 #### [facility] [address] [place] [address] Dr. Frank HillsMCV104.4 fLCritically high81.0-99.0The [facility] CenterComment on above:Performed By: #### LIVER, LIPID, TSH, FT3, T4 #### [facility] [address] [address] [address] Frank Cross #NormalThe [facility] CenterComment on above: Performed By: #### LIVER, LIPID, TSH, FT3, T4 #### [facility] [address] [address] [address] Frank ValeraOCYTE %NormalThe [facility] CenterComment on above: Performed By: #### LIVER, LIPID, TSH, FT3, T4 #### [facility] [address] [place] [address] Dr. Frank AgrawalROCYTOSIS1+NormalThe [facility] CenterComment on above: Performed By: #### LIVER, LIPID, TSH, FT3, T4 #### [facility] [address] [place] [address] Dr. Frank Schneider#0.28 103/ulCritically low0.30-0.80The [facility] Comment on above:Performed By: #### LIVER, LIPID, TSH, FT3, T4 #### [facility] [address] [place] [address] Dr. Frank Schneider%10.0 %Normal1.7-12.0The [facility] Hospitalment on above: Performed By: #### LIVER, LIPID, TSH, FT3, T4 #### [facility] [address] [place] [address] Dr. Frank HillsMPV8.9 fLCritically low9.5-13.5The [facility] CenterComment on above:Performed By: #### LIVER, LIPID, TSH, FT3, T4 #### [facility] [address] [place] [address] Dr. Frank Edwards #NormalThe [facility] Hospitalment on above:Performed By: #### LIVER, LIPID, TSH, FT3, T4 #### [facility] [address] [place] [address] Dr. Frank Edwards %NormalThe [facility] CenterComment on above:Performed By: #### LIVER, LIPID, TSH, FT3, T4 #### [facility] [address] [place] [address] Dr. Frank CookBCNormWestern Reserve Hospitale [facility] on above:Performed By: #### LIVER, LIPID, TSH, FT3, T4 #### [facility] [address] [place] [address] Dr. Frank HillsPLT169 103/ynBxiyfu096-472Nku [facility] on above: Performed By: #### LIVER, LIPID, TSH, FT3, T4 #### [facility] [address] [place] [address] Dr. Frank RiveraC3.41 106/ulCritically low4.20-5.40The [facility] on above:Performed By: #### LIVER, LIPID, TSH, FT3, T4 #### [facility] [address] [place] [address] Dr. Frank HillsRDW14.1 %Rwuivf07.0-15.0The [facility] on above: Performed By: #### LIVER, LIPID, TSH, FT3, T4 #### [facility] [address] [place] [address] Dr. Frank Shah #1.99 103/ulNormal1.40-6.50The [facility] on above:Performed By: #### LIVER, LIPID, TSH, FT3, T4 #### [facility] [address] [place] [address] Dr. Frank Shah %71.0 %Zgygcx59.0-75.0The [facility] on above: Performed By: #### LIVER, LIPID, TSH, FT3, T4 #### [facility] [address] [place] [address] Dr. Frank BarajasBC2.8 103/ulCritically low4.0-11.0The [facility] on above:Performed By: #### LIVER, LIPID, TSH, FT3, T4 #### [facility] [address] [place] [address] Dr. Frank Arteaga T3on [id number] T32.61 pg/mlLNormal2.18-3.98The [facility] CenterComment on above:Performed By: #### LIVER, LIPID, TSH, FT3, T4 #### [facility] [address] [address] [address] Frank HillsGLYCOHEMOGLOBIN A1Con [id number] RECOMMENDATIONSEE BELOWNormks The [facility] CenterComment on above:Result Comment: ADA RECOMMENDED LIMIT 4.0 - 6.0 ADA THERAPEUTIC TARGET < 7.0 ACTION SUGGESTED > 7.0Performed By: #### A1C #### [facility] [address] [place] [address] Dr. Frank HillsGlucose [Mass/Vol]108 mg/dLNoSelect Medical Specialty Hospital - Southeast OhioComment on above:Performed By: #### A1C #### [facility] [address] [place] [address] Dr. Frank HillsHbA1c (Bld) [Mass fraction]5.4 %Normal4.5-6.2The [facility] CenterComment on above:Performed By: #### A1C #### [facility] [address] [place] [address] Dr. Frank Caballero [id number] [Mass/Vol]96.0 ug/mBAbedkk92.0-170.0[facility] HospitalComment on above:Performed By: #### LIVER, LIPID, TSH, FT3, T4 #### [facility] [address] [place] [address] Dr. Frank HillsLIPID PROFILEon [id number] RATIO NORMSEE BELOWSelect Medical Specialty Hospital - [facility] SouthCommarshfield medical center on above:Result Comment: 3.3 - 4.4 LOW RISK 4.4 - 7.1 AVERAGE RISK 7.1 - 11.0 MODERATE RISK >11.0 HIGH RISKPerformed By: #### LIVER, LIPID, TSH, FT3, T4 #### [facility] [address] [place] [address] Dr. Frank HillsCholesterol [Mass/Vol]172 mg/dLNormal<=200The [facility] Comment on above:Performed By: #### LIVER, LIPID, TSH, FT3, T4 #### [facility] [address] [address] [address] Frank Carsonesterol in HDL [Mass/Vol]66 mg/dLCritically gdbu80-25CmgEast [place] Regional HospitalComment on above:Performed By: #### LIVER, LIPID, TSH, FT3, T4 #### [facility] [address] [address] [address] Frank Carsonesterol in LDL [Mass/Vol]86.6 mg/dLNormCity HospitalComment on above:Performed By: #### LIVER, LIPID, TSH, FT3, T4 #### [facility] [address] [place] [address] Dr. Frank Hahn.total/Cholesterol in HDL [Mass ratio]2.6 {ratio} NormalEast [place] Regional HospitalComment on above:Performed By: #### LIVER, LIPID, TSH, FT3, T4 #### [facility] [address] [place] [address] Dr. Frank Mancilla NORMAL> or = 60 mg/dl - LOW CARDIOVASCULAR RISK <40 mg/dl - HIGH CARDIOVASCULAR RISKSelect Medical Specialty Hospital - [place] SouthComment on above:Performed By: #### LIVER, LIPID, TSH, FT3, T4 #### [facility] [address] [place] [address] Dr. Frank HillsLDL CALC NORMALSEE BELOWNoSelect Medical Specialty Hospital - Southeast OhioComment on above:Result Comment: <100 mg/dl OPTIMAL 100 - 129 mg/dl NEAR OR ABOVE OPTIMAL 130 - 159 mg/dl BORDERLINE HIGH 160 - 189 mg/dl HIGH >190 mg/dl VERY HIGH Performed By: #### LIVER, LIPID, TSH, FT3, T4 #### [facility] [address] [place] [address] Dr. Frank HillsTriglyceride [Mass/Vol]97 mg/dLNormal<=150[facility] Comment on above:Performed By: #### LIVER, LIPID, TSH, FT3, T4 #### [facility] [address] [place] [address] Dr. Frank Nunn CALC19.4 mg/dLNormalThe [facility] CenterComment on above: Performed By: #### LIVER, LIPID, TSH, FT3, T4 #### [facility] [address] [place] [address] Dr. Frank Landaverde PROFILEon 48-02-5014Uugunal [Mass/Vol]3.5 g/dLNormal3.4-5.0 The [facility] CenterComment on above:Performed By: #### LIVER, LIPID, TSH, FT3, T4 #### [facility] [address] [place] [address] Dr. Frank HillsAlbumin/Globulin [Mass ratio]1.2 {ratio}NormalThe [facility] on above:Performed By: #### LIVER, LIPID, TSH, FT3, T4 #### [facility] [address] [place] [address] Dr. Frank Chung [Catalytic activity/Vol]55 U/AZitalz02-117Des [facility] CenterComment on above:Performed By: #### LIVER, LIPID, TSH, FT3, T4 #### [facility] [address] [place] [address] Dr. Frank Jung [Catalytic activity/Vol]34 U/DHhotvq22-07Vxi [facility] on above:Performed By: #### LIVER, LIPID, TSH, FT3, T4 #### [facility] [address] [place] [address] Dr. Frank Baker [Catalytic activity/Vol]40 U/LCritically hxoj48-04Cqt [facility] on above:Performed By: #### LIVER, LIPID, TSH, FT3, T4 #### [facility] [address] [place] [address] Dr. Frank Parekh, CONJUGATED0.2 mg/dLNormal0.0-0.2The [facility] Comment on above:Performed By: #### LIVER, LIPID, TSH, FT3, T4 #### [facility] [address] [place] [address] Dr. Yilan ChangBilirubin [Mass/Vol]0.8 mg/dLNormal0.2-1.0[facility] Comment on above:Performed By: #### LIVER, LIPID, TSH, FT3, T4 #### [facility] [address] [place] [address] Dr. Frank HillsGlobulin (S) [Mass/Vol]2.9 g/dLNormCity HospitalComment on above:Performed By: #### LIVER, LIPID, TSH, FT3, T4 #### [facility] [address] [place] [address] Dr. Frank HillsProtein [Mass/Vol]6.4 g/dLNormal6.4-8.2[facility] Comment on above:Performed By: #### LIVER, LIPID, TSH, FT3, T4 #### [facility] [address] [place] [address] Dr. Frank HillsT4on 70-25-9038S0 [Mass/Vol]6.70 ug/dLNormal4.80-13.90[facility] HospitalComment on above:Performed By: #### LIVER, LIPID, TSH, FT3, T4 #### [facility] [address] [place] [address] Dr. Frank Francis 77-91-1144PQU5.804 uIU/mLNormal0.358-3.740[facility] HospitalComment on above:Performed By: #### LIVER, LIPID, TSH, FT3, T4 #### [facility] [address] [place] [address] Dr. Frank HillsVITAMIN D 25 OHon 76-32-4331HHH D 25-OH50.7 ng/mLNormalEast [facility] Regional HospitalComment on above:Performed By: #### LIVER, LIPID, TSH, FT3, T4 #### [facility] [address] [place] [address] Dr. Frank Meneses RANGESSEE BELOWSelect Medical Specialty Hospital - Columbus SouthComment on above: Result Comment: <20 ng/mL Vit D deficient 20 - <30 ng/mL Vit D insufficient 30 - 100 ng/mL Vit D sufficient >100 ng/mL Potential ToxicityPerformed By: #### LIVER, LIPID, TSH, FT3, T4 #### [facility] [address] [place] [address] Dr. Frank HillsMG MAMM SCREEN 3D BO CADon 70-14-8628XK MAMM SCREEN 3D BO CAD Patient: DANYELLE HASKINS Exam Date: 08/31/2022 : 1955 Gender:F Ordering : DR JACK LANDAVERDE . Admission #: [id number] Family : DR YULISA BATRES . Order #: [id number] CLICK HERE TO VIEW EXAM RADIOLOGY REPORT [...] cancer at age 48. LOCATION: [facility] BREAST COMPOSITION: Scattered areas fibroglandular [...] by: Lisy Sandoval MD on 08/31/2022 at 11:14[facility] SouthXR DEXA BONE DENSITYon 10-41-6016OL DEXA BONE DENSITYEXAMINATION: XR DEXA BONE DENSITY, 08/27/2022 9:03 AM EDT HISTORY: Senile osteoporosis COMPARISON: 2017 TECHNIQUE: Dual-energy X-ray absorptiometry (DEXA) bone density study performed for the axial skeleton. FINDINGS: Bone mineral density of the left femoral trochanter measures 0.581 g/sq cm. T score -2.3. WHO classification osteopenia IMPRESSION: Osteopenia. Moderate fracture risk Electronically authenticated by: LISY SANDOVAL Date: 2022-08-27 18:41NormalThe [facility] CenterCOMPLEMENT TOTAL (CH50)on 13-37-1106Mgdsyyzdoi, Total (CH50)>60 Normal>41The [facility] CenterComment on above:Result Comment: Age Male Female 1 [...] #### LIVER, LIPID, TSH, FT3, T4 #### [facility] [address] [place] [address] Dr. Frank HillsC3 and C4 COMPLEMENTon 38-71-9085Evuqeazpdv C3, Fkzcm282 mg/dL Lvautc36-679Lws [facility] CenterComment on above:Performed By: #### LIVER, LIPID, TSH, FT3, T4 #### [facility] [address] [place] [address] Dr. Frank HillsComplement C4, Serum38 mg/yXKtbufc27-62VqrEast [facility] Comment on above:Performed By: #### LIVER, LIPID, TSH, FT3, T4 #### [facility] [address] [place] [address] Dr. Frank Vazquez AUTO DIFFon 34-76-9721TUPE #0.0 103/ulNormal0.0-0.1The [facility] CenterComment on above:Performed By: #### CBC #### [facility] [address] [place] [address] Dr. Frank HillsBasophils/100 WBC (Bld)0.9 %Normal0.2-2.0[facility] Comment on above:Performed By: #### CBC #### [facility] [address] [place] [address] Dr. Marie ChangERhoda #0.1 103/ulNormal0.0-0.7The [facility] CenterComment on above: Performed By: #### CBC #### [facility] [address] [address] [address] Frank Patriciaosinophils/100 WBC (Bld)3.4 %Normal0.9-7.0The [facility] Comment on above:Performed By: #### CBC #### [facility] [address] [place] [address] Dr. Frank Patriciarythrocyte distribution width (RBC) [Ratio]13.8 %Niznsl41.0-15.0 The [facility] CenterComment on above:Performed By: #### CBC #### [facility] [address] [place] [address] Dr. Frank HillsHematocrit (Bld) [Volume fraction]36.6 %Jedxmq76.0-48.0The [facility] CenterComment on above:Performed By: #### CBC #### [facility] [address] [place] [address] Dr. Frank HillsHemoglobin (Bld) [Mass/Vol]11.8 g/dLCritically low12.0-16.0The [facility] CenterComment on above:Performed By: #### CBC #### [facility] [address] [place] [address] Dr. Frank Smith #0.01 10e3/ulNormal0.00-0.03The [facility] CenterComment on above:Performed By: #### CBC #### [facility] [address] [place] [address] Dr. Frank Smith %0.3 %Normal0.0-0.5The [facility] CenterComment on above: Performed By: #### CBC #### [facility] [address] [place] [address] Dr. Frank HaysH #0.6 103/ulCritically low1.2-3.8The [facility] Comment on above:Performed By: #### CBC #### [facility] [address] [place] [address] Dr. Frank Alfredmphocytes/100 WBC (Bld)18.1 %Critically low20.5-60.0The [facility] CenterComment on above:Performed By: #### CBC #### [facility] [address] [place] [address] Dr. Frank Baker DIFF REQNONormalThe [facility] CenterComment on above: Performed By: #### CBC #### [facility] [address] [place] [address] Dr. Frank Doran (RBC) [Entitic mass]33.6 zpLbzvwv48.7-34.0The [facility] HospitalComment on above:Performed By: #### CBC #### [facility] [address] [place] [address] Dr. Frank Doran (RBC) [Mass/Vol]32.2 g/yFBflmtt35.9-35.2The [facility] CenterComment on above:Performed By: #### CBC #### [facility] [address] [place] [address] Dr. Frank Doran (RBC) [Entitic vol]104.3 fLCritically high81.0-99.0The [facility] CenterComment on above:Performed By: #### CBC #### [facility] [address] [place] [address] Dr. Frank Ponce #0.4 103/ulNormal0.3-0.8The [facility] CenterComment on above:Performed By: #### CBC #### [facility] [address] [place] [address] Dr. Frank Babinocytes/100 WBC (Bld)11.2 %Normal1.7-12.0The [facility] Comment on above:Performed By: #### CBC #### [facility] [address] [place] [address] Dr. Frank Redding #2.3 103/ulNormal1.4-6.5The [facility] CenterComment on above:Performed By: #### CBC #### [facility] [address] [place] [address] Dr. Yilan ChangNeutrophils/100 WBC (Bld)66.1 %Etaowr68.0-75.0The [facility] CenterComment on above:Performed By: #### CBC #### [facility] [address] [place] [address] Dr. Frank León mean volume (Bld) [Entitic vol]8.9 fLCritically low 9.5-13.5The [facility] CenterComment on above:Performed By: #### CBC #### [facility] [address] [place] [address] Dr. Frank LagosT213 103/rtRprldc757-310Xek [facility] CenterComment on above: Performed By: #### CBC #### [facility] [address] [place] [address] Dr. Frank HillsRBC3.51 106/ulCritically low4.20-5.40The [facility] CenterComment on above:Performed By: #### CBC #### [facility] [address] [place] [address] Dr. Frank HillsWBC3.5 103/ulCritically low4.0-11.0The [facility] CenterComment on above:Performed By: #### CBC #### [facility] [address] [place] [address] Dr. Frank Blount 14(COMP METB)on 34-76-6474Chdtpxf [Mass/Vol]3.7 g/dLNormal 3.4-5.0The [facility] Hospitalment on above:Performed By: #### LIVER, LIPID, TSH, FT3, T4 #### [facility] [address] [place] [address] Dr. Frank HillsAlbumin/Globulin [Mass ratio]1.2 {ratio}NormalThe [facility] on above:Performed By: #### LIVER, LIPID, TSH, FT3, T4 #### [facility] [address] [place] [address] Dr. Frank Chung [Catalytic activity/Vol]59 U/GYbuxtw24-210Yya [facility] CenterComment on above:Performed By: #### LIVER, LIPID, TSH, FT3, T4 #### [facility] [address] [place] [address] Dr. Frank Jung [Catalytic activity/Vol]23 U/KPxninz08-64Czj [facility] CenterComment on above:Performed By: #### LIVER, LIPID, TSH, FT3, T4 #### [facility] [address] [place] [address] Dr. Frank Estradaon gap [Moles/Vol]10.2 mmol/LNormalEast [facility] Comment on above:Performed By: #### LIVER, LIPID, TSH, FT3, T4 #### [facility] [address] [place] [address] Dr. Frank Baker [Catalytic activity/Vol]24 U/DXyijxc23-02Aug [facility] CenterComment on above:Performed By: #### LIVER, LIPID, TSH, FT3, T4 #### [facility] [address] [place] [address] Dr. Frank HillsBilirubin [Mass/Vol]0.6 mg/dLNormal0.2-1.0[facility] Comment on above:Performed By: #### LIVER, LIPID, TSH, FT3, T4 #### [facility] [address] [place] [address] Dr. Frank HillsCalcium [Mass/Vol]8.9 mg/dLNormal8.5-10.1[facility] Comment on above:Performed By: #### LIVER, LIPID, TSH, FT3, T4 #### [facility] [address] [place] [address] Dr. Frank HillsChloride [Moles/Vol]105 mmol/FXyksio61-761PrtEast [facility] Hospital Comment on above:Performed By: #### LIVER, LIPID, TSH, FT3, T4 #### [facility] [address] [place] [address] Dr. Frank HillsCO2 [Moles/Vol]30.0 mmol/WXrkvns49.0-32.0[facility] Comment on above:Performed By: #### LIVER, LIPID, TSH, FT3, T4 #### [facility] [address] [place] [address] Dr. Frank HillsCreatinine [Mass/Vol]0.64 mg/dLNormal0.55-1.02The [facility] Hospitalment on above:Performed By: #### LIVER, LIPID, TSH, FT3, T4 #### [facility] [address] [place] [address] Dr. Frank PatriciaGFR-AF ARGENTINE>60Normal>=60The [facility] CenterComment on above:Performed By: #### LIVER, LIPID, TSH, FT3, T4 #### [facility] [address] [place] [address] Dr. Frank PatriciaGFR-NON AF ARGENTINE>60Normal>=60The [facility] Hospitalment on above:Performed By: #### LIVER, LIPID, TSH, FT3, T4 #### [facility] [address] [place] [address] Dr. Frank HillsGlobulin (S) [Mass/Vol]3.0 g/dLNormalThe [facility] CenterComment on above:Performed By: #### LIVER, LIPID, TSH, FT3, T4 #### [facility] [address] [place] [address] Dr. Frank HillsGlucose [Mass/Vol]97 mg/vDNyatol73-390SnoEast [facility] Comment on above:Performed By: #### LIVER, LIPID, TSH, FT3, T4 #### [facility] [address] [place] [address] Dr. Frank HillsPotassium [Moles/Vol]4.2 mmol/LNormal3.5-5.1[facility] Comment on above:Performed By: #### LIVER, LIPID, TSH, FT3, T4 #### [facility] [address] [place] [address] Dr. Frank HillsProtein [Mass/Vol]6.7 g/dLNormal6.4-8.2The [facility] Comment on above:Performed By: #### LIVER, LIPID, TSH, FT3, T4 #### [facility] [address] [place] [address] Dr. Frank Kearnsum [Moles/Vol]141 mmol/DVkrgbr375-707Pyv [facility] Comment on above:Performed By: #### LIVER, LIPID, TSH, FT3, T4 #### [facility] [address] [place] [address] Dr. Frank Noble nitrogen [Mass/Vol]13.0 mg/dLNormal7.0-18.0The [facility] CenterComment on above:Performed By: #### LIVER, LIPID, TSH, FT3, T4 #### [facility] [address] [address] [address] Frank Noble nitrogen/Creatinine [Mass ratio]20.3 mg/mgNormalThe [facility] CenterComment on above:Performed By: #### LIVER, LIPID, TSH, FT3, T4 #### [facility] [address] [place] [address] Dr. Frank Díaz RATE WESTERGRENon 61-84-8841YPY RATE8 mm/hrNormal<=30The [facility] CenterComment on above:Performed By: #### LIVER, LIPID, TSH, FT3, T4 #### [facility] [address] [place] [address] Dr. Frank Gray RANDOM W/MICROSCOPICon 17-67-4752JDWLPHTGWRBB SEENNormalNONE SEENEast [facility] Regional HospitalComment on above:Performed By: #### LIVER, LIPID, TSH, FT3, T4 #### [facility] [address] [place] [address] Dr. Frank Corderoirubin Ql (U)NegativeNormalNEGATIVEThe [facility] Comment on above:Performed By: #### LIVER, LIPID, TSH, FT3, T4 #### [facility] [address] [place] [address] Dr. Frank Elam SEENNormalNONE SEENEast [facility] Regional HospitalComment on above:Performed By: #### LIVER, LIPID, TSH, FT3, T4 #### [facility] [address] [place] [address] Dr. Yilan ChangClarity (U)CLEARNormalCLEAREast Ohio Regional HospitalComment on above: Performed By: #### LIVER, LIPID, TSH, FT3, T4 #### [facility] [address] [address] [address] Frank Cornell (U)LT. YELLOWNormalYELLOWEast [facility] Regional HospitalComment on above:Performed By: #### LIVER, LIPID, TSH, FT3, T4 #### [facility] [address] [address] [address] Frank HillsCrystals LM Nom (Urine sed)NONE SEENNormalNONE SEENEast [facility] Regional HospitalComment on above:Performed By: #### LIVER, LIPID, TSH, FT3, T4 #### [facility] [address] [place] [address] Dr. Marie ChangEpithelial cells LM Ql (Urine sed)FEWAbnormalNONE SEEN /RAREEast Ohio Regional HospitalComment on above:Performed By: #### LIVER, LIPID, TSH, FT3, T4 #### [facility] [address] [place] [address] Dr. Frank HillsGlucose Ql (U)NegativeNormalNEGATIVEEast [facility] Regional HospitalComment on above:Performed By: #### LIVER, LIPID, TSH, FT3, T4 #### [facility] [address] [place] [address] Dr. Frank HillsHemoglobin Ql (U)NegativeNormalNEGATIVEOhiohealth [facility] on above:Performed By: #### LIVER, LIPID, TSH, FT3, T4 #### [facility] [address] [place] [address] Dr. Frank HillsKetones Ql (U)NegativeNormalNEGATIVEEast [facility] Regional HospitalComment on above:Performed By: #### LIVER, LIPID, TSH, FT3, T4 #### [facility] [address] [place] [address] Dr. Frank HillsLEUKOCYTESTRACEAbnormalNEGATIVEEast [facility] Regional HospitalComment on above:Performed By: #### LIVER, LIPID, TSH, FT3, T4 #### [facility] [address] [address] [address] Frank Calle SEENNormalNONE SEENEast [facility] Regional HospitalComment on above:Performed By: #### LIVER, LIPID, TSH, FT3, T4 #### [facility] [address] [address] [address] Frank Nieves Ql (U)NegativeNormalNEGATIVEThe [facility] CenterComment on above:Performed By: #### LIVER, LIPID, TSH, FT3, T4 #### [facility] [address] [place] [address] Dr. Frank HillspH (U)6.5 [pH]Normal5-9The [facility] CenterComment on above: Performed By: #### LIVER, LIPID, TSH, FT3, T4 #### [facility] [address] [place] [address] Dr. Frank RiveraOtpwyXUW8-7Shnymm9-4Xpe [facility] CenterComment on above:Performed By: #### LIVER, LIPID, TSH, FT3, T4 #### [facility] [address] [place] [address] Dr. Frank HillsSPEC GRAVITY1.989Qsfodw0.005-<=1.025The [facility] Hospitalment on above:Performed By: #### LIVER, LIPID, TSH, FT3, T4 #### [facility] [address] [place] [address] Dr. Frank Gray PROTEINNegativeNormalNEGATIVE/ TRACEThe [facility] Comment on above:Performed By: #### LIVER, LIPID, TSH, FT3, T4 #### [facility] [address] [place] [address] Dr. Frank Villeda Qn (U)0.2 {Flaquita'U}/dLNormal0.2 - 1.0The [facility] CenterComment on above:Performed By: #### LIVER, LIPID, TSH, FT3, T4 #### [facility] [address] [place] [address] Dr. Frank HillsWBC0-2AbnormalNONE SEENThe [facility] CenterComment on above: Performed By: #### LIVER, LIPID, TSH, FT3, T4 #### [facility] [address] [address] [address] Frank HillsC3 and C4 COMPLEMENTon 84-25-2684Smgoruvley C3, Ijmbv956 mg/dL Critically yinx63-280Lue [facility] CenterCommarshfield medical center on above:Performed By: #### LIVER, LIPID, TSH, FT3, T4 #### [facility] [address] [place] [address] Dr. Frank HillsComplement C4, Serum40 mg/dLCritically sgku70-07Bhd [facility] CenterComment on above:Performed By: #### LIVER, LIPID, TSH, FT3, T4 #### [facility] [address] [place] [address] Dr. Frank HillsCOMPLEMENT TOTAL (CH50)on 11-79-9676Ungoolhuxj, Total (CH50)>60 Normal>41The [facility] CenterComment on above:Result Comment: Age Male Female 1 [...] #### LIVER, LIPID, TSH, FT3, T4 #### [facility] [address] [place] [address] Dr. Frank HillsCBPily AUTO DIFFon 34-87-0357LGTL #0.0 103/ulNormal0.0-0.1The [facility] CenterComment on above:Performed By: #### LIVER, LIPID, TSH, FT3, T4 #### [facility] [address] [place] [address] Dr. Frank HillsBasophils/100 WBC (Bld)0.4 %Normal0.2-2.0The [facility] Comment on above:Performed By: #### LIVER, LIPID, TSH, FT3, T4 #### [facility] [address] [place] [address] Dr. Frank Cali #0.1 103/ulNormal0.0-0.7The [facility] CenterComment on above: Performed By: #### LIVER, LIPID, TSH, FT3, T4 #### [facility] [address] [place] [address] Dr. Frank Patriciaosinophils/100 WBC (Bld)1.7 %Normal0.9-7.0The [facility] Comment on above:Performed By: #### LIVER, LIPID, TSH, FT3, T4 #### [facility] [address] [place] [address] Dr. Frank Patriciarythrocyte distribution width (RBC) [Ratio]13.2 %Ylhimi55.0-15.[address] [facility] Hospitalment on above:Performed By: #### LIVER, LIPID, TSH, FT3, T4 #### [facility] [address] [place] [address] Dr. Frank HillsHematocrit (Bld) [Volume fraction]39.6 %Mhvacn21.0-48.0The [facility] CenterComment on above:Performed By: #### LIVER, LIPID, TSH, FT3, T4 #### [facility] [address] [place] [address] Dr. Frank HillsHemoglobin (Bld) [Mass/Vol]12.7 g/vKOuwduc52.0-16.0The [facility] Hospitalment on above:Performed By: #### LIVER, LIPID, TSH, FT3, T4 #### [facility] [address] [place] [address] Dr. Frank HillsIG #0.02 10e3/ulNormal0.00-0.03The [facility] Hospitalment on above:Performed By: #### LIVER, LIPID, TSH, FT3, T4 #### [facility] [address] [place] [address] Dr. Frank Smith %0.4 %Normal0.0-0.5The [facility] CenterComment on above: Performed By: #### LIVER, LIPID, TSH, FT3, T4 #### [facility] [address] [place] [address] Dr. Frank Agarwal #0.9 103/ulCritically low1.2-3.8The [facility] Comment on above:Performed By: #### LIVER, LIPID, TSH, FT3, T4 #### [facility] [address] [place] [address] Dr. Frank Hayshocytes/100 WBC (Bld)17.3 %Critically low20.5-60.0The [facility] CenterComment on above:Performed By: #### LIVER, LIPID, TSH, FT3, T4 #### [facility] [address] [place] [address] Dr. Frank Baker DIFF REQNONormalThe [facility] CenterComment on above: Performed By: #### LIVER, LIPID, TSH, FT3, T4 #### [facility] [address] [place] [address] Dr. Frank Doran (RBC) [Entitic mass]33.7 uqBlpcje20.7-34.0The [facility] CenterComment on above:Performed By: #### LIVER, LIPID, TSH, FT3, T4 #### [facility] [address] [place] [address] Dr. Frank Doran (RBC) [Mass/Vol]32.1 g/cUOjubih88.9-35.2The [facility] CenterComment on above:Performed By: #### LIVER, LIPID, TSH, FT3, T4 #### [facility] [address] [place] [address] Dr. Frank Doran (RBC) [Entitic vol]105.0 fLCritically high81.0-99.0The [facility] CenterComment on above:Performed By: #### LIVER, LIPID, TSH, FT3, T4 #### [facility] [address] [place] [address] Dr. Frank Ponce #0.5 103/ulNormal0.3-0.8The [facility] CenterComment on above:Performed By: #### LIVER, LIPID, TSH, FT3, T4 #### [facility] [address] [address] [address] Frank Babinocytes/100 WBC (Bld)8.9 %Normal1.7-12.0The [facility] Comment on above:Performed By: #### LIVER, LIPID, TSH, FT3, T4 #### [facility] [address] [place] [address] Dr. Frank Redding #3.7 103/ulNormal1.4-6.5The [facility] CenterComment on above:Performed By: #### LIVER, LIPID, TSH, FT3, T4 #### [facility] [address] [place] [address] Dr. Frank Mooneyutrophils/100 WBC (Bld)71.3 %Qydlyw70.0-75.0The [facility] CenterComment on above:Performed By: #### LIVER, LIPID, TSH, FT3, T4 #### [facility] [address] [place] [address] Dr. Frank HillsPlatelet mean volume (Bld) [Entitic vol]8.9 fLCritically low 9.5-13.5The [facility] CenterComment on above:Performed By: #### LIVER, LIPID, TSH, FT3, T4 #### [facility] [address] [place] [address] Dr. Frank HillsPLT198 103/boQchkqf324-020Wmx [facility] CenterComment on above: Performed By: #### LIVER, LIPID, TSH, FT3, T4 #### [facility] [address] [place] [address] Dr. Frank HillsRBC3.77 106/ulCritically low4.20-5.40The [facility] CenterComment on above:Performed By: #### LIVER, LIPID, TSH, FT3, T4 #### [facility] [address] [place] [address] Dr. Frank HillsWBC5.2 103/ulNormal4.0-11.0The [facility] CenterComment on above: Performed By: #### LIVER, LIPID, TSH, FT3, T4 #### [facility] [address] [place], [place] [address] Dr. Frank HillsMRI BRAIN WO CONon 32-63-6240ZQM BRAIN WO CONEXAMINATION: MRI BRAIN WO [place], 04/20/2022 9:23 AM EDT HISTORY: Headache COMPARISON: [...] Electronically authenticated by: CHARO MAY Date: 2022-04-20 16:44[facility] SouthPROF 14(COMP METB)on 68-87-1018Lhvpiym [Mass/Vol]4.0 g/dLNormal 3.4-5.0The [facility] CenterComment on above:Performed By: #### LIVER, LIPID, TSH, FT3, T4 #### [facility] [address] [place], [place] [address] Dr. Frank HillsAlbumin/Globulin [Mass ratio]1.1 {ratio}NormalThe [facility] Warren Hospitalment on above:Performed By: #### LIVER, LIPID, TSH, FT3, T4 #### [facility] [address] [place], [place] [address] Dr. Frank Chung [Catalytic activity/Vol]68 U/ZZctryr14-159Iel [facility] CenterComment on above:Performed By: #### LIVER, LIPID, TSH, FT3, T4 #### [facility] [address] [place] [address] Dr. Frank Jung [Catalytic activity/Vol]35 U/ACofwkw82-60Med [facility] CenterComment on above:Performed By: #### LIVER, LIPID, TSH, FT3, T4 #### [facility] [address] [place] [address] Dr. Frank Estradaon gap [Moles/Vol]10.1 mmol/LNormalEast [place] [facility] Comment on above:Performed By: #### LIVER, LIPID, TSH, FT3, T4 #### [facility] [address] [place] [address] Dr. Frank Baker [Catalytic activity/Vol]31 U/ACimkrq16-03Kmz [facility] CenterComment on above:Performed By: #### LIVER, LIPID, TSH, FT3, T4 #### [facility] [address] [place] [address] Dr. Frank HillsBilirubin [Mass/Vol]0.9 mg/dLNormal0.2-1.0[facility] [place] [facility] Comment on above:Performed By: #### LIVER, LIPID, TSH, FT3, T4 #### [facility] [address] [place] [address] Dr. Frank HillsCalcium [Mass/Vol]9.0 mg/dLNormal8.5-10.1[facility] [place] [facility] Comment on above:Performed By: #### LIVER, LIPID, TSH, FT3, T4 #### [facility] [address] [place] [address] Dr. Frank HillsChloride [Moles/Vol]104 mmol/FChjuvt45-788ZwkEast [place] [facility] Hospital Comment on above:Performed By: #### LIVER, LIPID, TSH, FT3, T4 #### [facility] [address] [place] [address] Dr. Frank HillsCO2 [Moles/Vol]29.7 mmol/VGcrffg02.0-32.0[facility] [place] [facility] Comment on above:Performed By: #### LIVER, LIPID, TSH, FT3, T4 #### [facility] [address] [place] [address] Dr. Frank HillsCreatinine [Mass/Vol]0.68 mg/dLNormal0.55-1.02[facility] [place] [facility] HospitalComment on above:Performed By: #### LIVER, LIPID, TSH, FT3, T4 #### [facility] [address] [place] [address] Dr. Frank PatriciaGFR-AF ARGENTINE>60Normal>=60The [facility] CenterComment on above:Performed By: #### LIVER, LIPID, TSH, FT3, T4 #### [facility] [address] [place] [address] Dr. Frank Rodriguez-NON AF ARGENTINE>60Normal>=60The [facility] CenterComment on above:Performed By: #### LIVER, LIPID, TSH, FT3, T4 #### [facility] [address] [place] [address] Dr. Frank HillsGlobulin (S) [Mass/Vol]3.5 g/dLNormalThe [facility] CenterComment on above:Performed By: #### LIVER, LIPID, TSH, FT3, T4 #### [facility] [address] [place] [address] Dr. Frank HillsGlucose [Mass/Vol]92 mg/iQEerzpy45-740TxbEast [place] [facility] Hospital Comment on above:Performed By: #### LIVER, LIPID, TSH, FT3, T4 #### [facility] [address] [place] [address] Dr. Frank HillsPotassium [Moles/Vol]3.8 mmol/LNormal3.5-5.1[facility] [place] [facility] Comment on above:Performed By: #### LIVER, LIPID, TSH, FT3, T4 #### [facility] [address] [place] [address] Dr. Frank HillsProtein [Mass/Vol]7.5 g/dLNormal6.4-8.2[facility] [place] [facility] Comment on above:Performed By: #### LIVER, LIPID, TSH, FT3, T4 #### [facility] [address] [place] [address] Dr. Frank Wolfedium [Moles/Vol]140 mmol/MMsjeky374-295Vyu [facility] Comment on above:Performed By: #### LIVER, LIPID, TSH, FT3, T4 #### [facility] [address] [place] [address] Dr. Frank HillsUrea nitrogen [Mass/Vol]14.0 mg/dLNormal7.0-18.0The [facility] CenterComment on above:Performed By: #### LIVER, LIPID, TSH, FT3, T4 #### [facility] [address] [place] [address] Dr. Frank Noble nitrogen/Creatinine [Mass ratio]20.6 mg/mgNormalThe [facility] CenterComment on above:Performed By: #### LIVER, LIPID, TSH, FT3, T4 #### [facility] [address] [place] [address] Dr. Frank Díaz RATE WESTERGRENon 94-98-0167FIX RATE6 mm/hrNormal<=30The [facility] CenterComment on above:Performed By: #### SEDR #### [facility] [address] [place] [address] Dr. Frank Gray RANDOM W/MICROSCOPICon 81-03-5502FZJPZHFOLWVI SEENNormalNONE SEENEast [place] Regional HospitalComment on above:Performed By: #### LIVER, LIPID, TSH, FT3, T4 #### [facility] [address] [place] [address] Dr. Frank Corderoirubin Ql (U)NegativeNormalNEGATIVEEast [place] [facility] Comment on above:Performed By: #### LIVER, LIPID, TSH, FT3, T4 #### [facility] [address] [place] [address] Dr. Frank HillsCASTNONE SEENNormalNONE SEENEast [place] Regional HospitalComment on above:Performed By: #### LIVER, LIPID, TSH, FT3, T4 #### [facility] [address] [address] [address] Frank HillsClarity (U)CLEARNormalCLEAREast [place] Regional HospitalComment on above: Performed By: #### LIVER, LIPID, TSH, FT3, T4 #### [facility] [address] [place] [address] Dr. Frank Cornell (U)LT. YELLOWNormalYELLOWEast [place] Regional HospitalComment on above:Performed By: #### LIVER, LIPID, TSH, FT3, T4 #### [facility] [address] [place] [address] Dr. Frank HillsCrystals LM Nom (Urine sed)NONE SEENNormalNONE SEENEast [place] Regional HospitalComment on above:Performed By: #### LIVER, LIPID, TSH, FT3, T4 #### [facility] [address] [place] [address] Dr. Marie ChangEpithelial cells LM Ql (Urine sed)RARENormalNONE SEEN /RAREEast [place] Regional HospitalCommarshfield medical center on above:Performed By: #### LIVER, LIPID, TSH, FT3, T4 #### [facility] [address] [place] [address] Dr. Frank HillsGlucose Ql (U)NegativeNormalNEGATIVEEast [place] Regional HospitalComment on above:Performed By: #### LIVER, LIPID, TSH, FT3, T4 #### [facility] [address] [place] [address] Dr. Frank HillsHemoglobin Ql (U)NegativeNormalNEGATIVEOhiohealth [facility] on above:Performed By: #### LIVER, LIPID, TSH, FT3, T4 #### [facility] [address] [place] [address] Dr. Frank HillsKetones Ql (U)NegativeNormalNEGATIVEEast [place] Regional HospitalComment on above:Performed By: #### LIVER, LIPID, TSH, FT3, T4 #### [facility] [address] [place] [address] Dr. Frank HillsLEUKOCYTESNegativeNormalNEGATIVEEast [place] Regional HospitalComment on above:Performed By: #### LIVER, LIPID, TSH, FT3, T4 #### [facility] [address] [address] [address] Frank DavidsonACEAbnormalNONE SEENThe [facility] CenterComment on above:Performed By: #### LIVER, LIPID, TSH, FT3, T4 #### [facility] [address] [address] [address] Frank Nieves Ql (U)NegativeNormalNEGATIVEThe [facility] CenterComment on above:Performed By: #### LIVER, LIPID, TSH, FT3, T4 #### [facility] [address] [address] [address] Frank HillspH (U)6.0 [pH]Normal5-9The [facility] Hospitalment on above: Performed By: #### LIVER, LIPID, TSH, FT3, T4 #### [facility] [address] [place] [address] Dr. Frank Nathan SEENAbnormal0-2The [facility] Hospitalment on above: Performed By: #### LIVER, LIPID, TSH, FT3, T4 #### [facility] [address] [place] [address] Dr. Frank HillsSPEC GRAVITY1.627Gisfjx9.005-<=1.025The [facility] Hospitalment on above:Performed By: #### LIVER, LIPID, TSH, FT3, T4 #### [facility] [address] [address] [address] Frank Gray PROTEINNegativeNormalNEGATIVE/ TRACEThe [facility] Comment on above:Performed By: #### LIVER, LIPID, TSH, FT3, T4 #### [facility] [address] [place] [address] Dr. Frank Villeda Qn (U)0.2 {Flaquita'U}/dLNormal0.2 - 1.0The [facility] Hospitalment on above:Performed By: #### LIVER, LIPID, TSH, FT3, T4 #### [facility] [address] [place] [address] Dr. Frank BarajasBCNONE SEENNormalNONE SEENThe [facility] CenterComment on above: Performed By: #### LIVER, LIPID, TSH, FT3, T4 #### [facility] [address] [place], [place] [address] Dr[address] Frank HillsAmbulatory Clinical Summaryon 98-15-8164Sptveqenxt Clinical Summary{05-05-69-4j-69-z9-6g-o8-ea-74-53-22-37-3c-92-ae}CD:[id number] Health System Galion HospitalPatient Educationon 62-54-5368Epxroeo EducationUrology Urinary Incontinence Urinary incontinence refers to [...] nerve stimulation). ? For women, using a biomedical engineering supervisor to prevent urine leaks. This is a [...] after experiencing incontinence. General instructions ? Take hakz-qqi-zjneftf and prescription medicines only as (more content not included)...[facility] HospitalUrology Office/Clinic Noteon 25-83-2300Ebwiexn Office/Clinic NoteChief Complaint 6 month check w/PVR [...] urine and/or bladder capacity by US- non-imaging 61828 Urnls Dip Stick Auto w/o Microscopy POC 60936 I have reviewed the previous health record information and history for this patient from Dr. Ramos Follow-up With When Contact Information Richard Leal MD, Maximo Dhaliwal, URO Only if needed [facility] [address] [address]- Additional Instructions: Patient Education Urinary Incontinence I, [...] Diverticulosis Dysuria Encounter for screening colonoscopy for ukc-kkub-flom patient Hemifacial spasm History of shingles Hyperlipidemia Hypertension Hyperthyroidism Insomnia Nocturia Osteoarthritis Polyneuropathy Post-void dribbling Raynaud phenomenon Recurrent UTI Rosacea Urethral stricture Historical No qualifying data Procedure/Surgical History Hip replacement (12/13/2016), Fusion of lumbar spine (12/06/2011), Ablation (08/18/2005), Excision of sebaceous cyst (08/27/1999), Arthroscopy of knee, Dilatation and curettage, Excision of ganglion cyst, E (more content not included)...[facility] Gal[facility] HospitalComment on above:Result Comment: Electronically Signed By: Maximo Ramos Jr., MD\.br\Date and Time Signed: 10/27/2111:16 EST\.br\Electronically Co-Signed By: Snow Lundberg MA\.br\Date and Time Co-Signed: 10/27/21 11:12 ESTAmbulatory Clinical Summaryon 74-02-7650Jpuwwitjuy Clinical Summary {4i-7o-80-0l-u4-0w-37-2s-51-wj-17-41-b0-23-3f-4e}CD:731942DhyerxSdyxggWhite HospitalPatient Educationon 82-08-3848Uogqngw EducationUrinary Frequency The number of times a [...] your urinary frequency. Itis (more content not included)...[facility] HospitalUrology Office/Clinic Noteon 85-89-0868Vctfsbs Office/Clinic NoteChief Complaint 6 wk f/u This [...] # 2 cap(s), Refills(s) 0, Pharmacy: [facility]/pharmacy #[id number], 172.7, cm, 02/24/21 8:22:00 EDT, Height/Length Dosing, 99.8, kg, 02/24/21 8:21:00 EDT... Urnls Dip Stick Auto w/o Microscopy POC 54817 I have reviewed the previous health record information and history for this pt. from Dr. Ramos. Follow-up With When Contact Information Richard Leal MD, Maximo Dhaliwal, URO [address] [place] [id number]- Additional Instructions: 6mos. pvr Patient Education Urinary [...] Diverticulosis Dysuria Encounter for screening colonoscopy for teu-wbfh-kgjd patient Hemifacial spasm History of shingles Hyperlipidemia Hypertension Hyperthyroidism Insomnia Osteoarthritis Polyneuropathy (more content not included)...[facility] HospitalComment on above: Result Comment: Electronically Signed By: Richard Leal MD, Maxiom Dhaliwal\.br\Date and Time Signed: 04/23/2112:21 EDT\.br\Electronically Co-Signed By: Indu Gonzalez MA\.br\Date and Time Co-Signed: 04/23/21 11:40 EDTCoding Summary.on 27-51-4956Pcjucp Summary. CD:[id number]:[id number]+PGhlYWQ+SD1LXKYnH87mnPZrrM0MH3cUIW0QTWPNEZDQJA7GSC6wa AJ9VUbzH3LhiqMk [file] ZTog (more content not included)...NormalSouthern [place] Medical CenterConsent for Procedure/Surgeryon 73-81-8945Jvihbhh for Procedure/Surgery [id number]#1.00CD:127NormalSouthern [place] Medical CenterIntraOperative Documentson 17-11-5922RmsraEzejsobvy Documents [id number]#1.00CD:127NoWhite HospitalConsent for Treatmenton 09-01-9754Oqoyexq for Treatment [id number]#1.00CD:127NoWhite HospitalMain OR Intraoperative Recordon 00-46-8196Ftdw OR Intraoperative Record IntraOp Document Type FTURO Summary Primary Physician: Maximo Ramos Jr., MD Finalized Date/Time: 03/12/21 13:52:16 Pt. Name: DANYELLE HASKINS D.O.B./Sex: 1955 Female Med Rec #: [id number] Physician: Maximo Ramos Jr., MD Financial #: [id number] Pt. Type: O Room/Bed: / Admit/Disch: 03/12/21 12:55:35 - Institution: Case Times FTURO Entry 1 Patient Times In Room 03/12/21 13:44:00 Out Room 03/12/21 13:52:00 Procedure Times Start 03/12/21 13:48:00 Stop 03/12/21 13:50:00 Anesthesia Times Last Modified By: Savanna Azevedo RN 03/12/21 13:52:11 Case Attendance FTURO Entry 1 Entry 2 Entry 3 Case Attendee Richard Leal MD, Maximo Hines [facility], Savanna Azevedo RN, Savanna Solis Role Performed Surgeon - Primary Scrub - Primary Industrial Court Magistrate - Primary Time In 03/12/21 13:44:00 03/12/21 [...] Signatures Signed By: Savanna Azevedo RN 03/12/21 13:52NoWhite HospitalMain OR Preoperative Recordon 32-72-8547Tvbk OR Preoperative RecordHolding Area Document Type FTURO Summary Primary Physician: Maximo Ramos Jr., MD Finalized Date/Time: 03/12/21 13:23:03 Pt. Name: DANYELLE HASKINS/Sex: 1955 Female Med Rec #: [id number] Physician: Maximo Ramos Jr., MD Financial #: [id number] Pt. Type: O Room/Bed: / Admit/Disch: 03/12/21 [...] LPN 03/12/21 13:08 Savanna Azevedo RN 03/12/21 13:23NoWhite HospitalOperative Reporton 71-19-4234Gcltsqgxq ReportPatient: DANYELLE HASKINS Age: 65 years Sex: [...] urine. The Urethra was dilated to: 28 [place] w/ sounds. Devices Implanted: None. Removal: Cystoscope is removed, The patient tolerated it well. Postoperative Information Discharge: Patient is discharged home with antibiotic coverage, Follow up arranged.[facility] HospitalComment on above:Result Comment: Electronically Signed By: Maximo Ramos Jr., MD\.br\Date and Time Signed: 03/12/2113:53 EDTLARGE JOINT/BURSA INJECTION AND/OR ASPIRATION: R kneeOrdered By: [place] on 50-88-3009Mcfhe Foster, MD 03/12/2021 2:21 PM LARGE JOINT/BURSA [...] immediate complications The patient was prepped with Betadine.[facility] CenterRAD - Ultrasound Reporton 34-04-7060VPJ - Ultrasound Report [id number]#1.00CD:127[facility] HospitalPhysician Referralon 59-43-6184Ixjkziihu Referral [id number]#1.00CD:127[facility] HospitalAmbulatory Clinical Summaryon 03-93-4246Hravzobimj Clinical Summary {95-0p-pm-x4-68-3d-34-8h-61-3v-8p-h3-28-3d-df-06}CD:367178RvrmhtNvytogWhite HospitalPatient Educationon 47-72-6143Tgqoyzy EducationUrinary Tract Infection Urinary tract infections (UTIs) [...] Document Reviewed: 12/01/2012 ExitCare? Patient Information ?2013 [employer].[facility] HospitalUrology Office/Clinic Noteon 76-72-3347Mhkyuba Office/Clinic NoteChief Complaint New patient recurring UTI [...] order Local anesthesia. ABX sent to [facility] in [place]. Ordered: Urology Procedure Order US Renal 2. Dysuria (R30.0: Dysuria) Moderate. Ordered: Urnls Dip Stick Auto w/o Microscopy POC 63729 Urology Procedure Order US Renal 3. Nocturia [...] # 2 cap(s), Refills(s) 0, Pharmacy: [facility]/pharmacy #[id number], 172.7, cm, 02/24/21 8:22:00 EDT, Height/Length Dosing, 99.8, kg, 02/24/21 8:21:00 (more content not included)...[facility] Gal[facility] HospitalComment on above:Result Comment: Electronically Signed By: Richard Leal MD, Maximo Dhaliwal\.br\Date and Time Signed: 02/24/2109:35 EDT\.br\Electronically Co-Signed By: Indu Gonzalez MA\.br\Date and Time Co- Signed: 02/24/21 08:56 EDTLARGE JOINT/BURSA INJECTION AND/OR ASPIRATION: R knee on 57-17-0976Xllac Foster, MD 11/27/2020 2:34 PM LARGE JOINT/BURSA [...] no immediate complications The patient wasprepped with Betadine.T3MediaCT UPPER EXTREMITY WO CONTRAST RIGHT 13-55-4601GA UPPER EXTREMITY WO CONTRAST [facility] Department of Radiology [address] [place] [address] Patient Name: DANYELLE HASKINS : 1955 Sex: F Age: Race: White Pt. Location: Patient Status: O Ordered Date: 03/10/2020 2:25:00 PM Completed Date: 03/10/2020 04:00 PM Requesting Provider: JOE ZUNIGA Attending Provider: JOE ZUNIGA Report Copy To: YULISA BATRES Signs & Symptoms: S42.201A Unsp fracture of upper end of right humerus, init I10 History: [place] Patient to go to clinic after call results to [phone] ortho clinic NO PC MEDICARE/BC CPT CODE 27698 *MLA Comments: right shoulder Exam: CT UPPER [...] reports Electronically signed: Abdelrahman Constantino. Transcribed by: [email or web address], User Resident: ISABELL MARKHAM Electronically Signed by: ABDELRAHMAN CONSTANTINO @ 03/10/2020 04:46 PM I personally read this/these film(s) with this [place] HospitalComment on above:Order Comment: right shoulderSHOULDER [facility] 27-86-1002JDYSOKSA [facility] Department of Radiology [address] [place] [id number] Patient Name: DANYELLE HASKINS : 1955 [...] reports Electronically signed: Abdelrahman Constantino. Transcribed by: [email or web address], User Resident: ISABELL MARKHAM Electronically Signed by: ABDELRAHMAN CONSTANTINO @ 03/10/2020 04:48 PM I personally read this/these film(s) with this [place] HospitalComment on above:Order Comment: , Views (X-RAY, SHOULDER): Axillary , Weight Bearing?: NLARGE JOINT INJECTION: R kneeon 57-61-9317JgnhlNew Mcclure MD 11/23/2019 2:44 PM LARGE JOINT [...] well with no immediate complications Preparation: with Betadine.[facility], EDIF, PLATELETon 07-21-2818NWUVUXHH BASOPHIL COUNT0.[address]Basophils/100 WBC (Bld)0.6 %0 - 2 %[address] Differential cell count method Nom (Bld)AUTO DIFF%[address]Eosinophils #/vol (Bld)0.00 10*3/hNS15XJORNNF[address]Eosinophils/100 WBC (Bld)1.0 %0 - 11 %[address]Erythrocyte distribution width Ratio (RBC)14.2 %11.5 - 14.5 %[address]ETHematocrit Volume Fraction (Bld)33.5 %Low36 - 48 % [address]ETHemoglobin mass conc (Bld)11.5 g/dL[address] Interpretation and review of laboratory resultsAbnormalONT71 MONTO[address] STREETLymphocytes #/vol (Bld)0.70 10*3/uLX10 [address]Lymphocytes/100 WBC (Bld)16.1 %Low20 - 55 %[address] [facility] Entitic mass (RBC)34.6 pg26 - 35 PG[address]ETMCHC mass conc (RBC)34.2 g/dL36 [address]ETMCV Entitic volume (RBC)101.[address] fLHigh[address]Monocytes #/vol (Bld)0.4 10*3/jOD90MRLXCIJ[address]Monocytes/100 WBC (Bld)9.9 %0 - 10 %[address]ETNeutrophils #/vol (Bld)3.3 10*3/[address] Neutrophils/100 WBC (Bld)72.4 %37 - 75 %[address]Platelet mean volume Entitic volume (Bld)7.[address]Platelets #/vol (Bld)191 10*3/uL [address]RBC #/vol (Bld)3.31 10*6/uL54 [address] StreetWBC #/vol (Bld)4.5 10*3/02 [address] StreetCBC, EDIF, PLATELETon 91-81-9906VSTDAAFV BASOPHIL COUNT0.9J02QNJPART[address] [place], [place] [address]Basophils/100 WBC (Bld)0.2 %0 - 2 %[address]Differential cell count method Nom (Bld)AUTO DIFF%[address] Eosinophils #/vol (Bld)0.00 10*3/tEK24VOYPKEM[address] [place], [place] [address]Eosinophils/100 WBC (Bld)0.1 %0 - 11 %[address]Erythrocyte distribution width Ratio (RBC)13.8 %11.5 - 14.5 %[address]ETHematocrit Volume Fraction (Bld)30.2 %Low36 - 48 %[address]ETHemoglobin mass conc (Bld)10.5 g/dL54 [address] StreetInterpretation and review of laboratory results Abnormal[address]ETLymphocytes #/vol (Bld)0.50 10*3/hTI24VVALZUL[address] [place], [place] [address]Lymphocytes/100 WBC (Bld)8.9 %Low20 - 55 %[address] Entitic mass (RBC)34.8 pg26 - 35 PG[address]ETMCHC mass conc (RBC)34.8 g/dL [address]MCV Entitic volume (RBC) 99.8 [address] StreetMonocytes #/vol (Bld)0.6 10*3/[address] Monocytes/100 WBC (Bld)10.2 %High0 - 10 %[address]Neutrophils #/vol (Bld)4.5 10*3/02 [address] StreetNeutrophils/100 WBC (Bld)80.6 %High37 - 75 %[address]ETPlatelet mean volume Entitic volume (Bld)7.5 [address] StreetPlatelets #/vol (Bld)181 10*3/02 [address] StreetRBC #/vol (Bld)3.02 10*6/32 [address] StreetWBC #/vol (Bld)5.6 10*3/02 [address] StreetCBC, EDIF, PLATELETon 14-99-7633TADLQPTF BASOPHIL COUNT0.3K61HYFAIMY[address] [place], [place] [address]Basophils/100 WBC (Bld)0.2 %0 - 2 %[address] Differential cell count method Nom (Bld)AUTO DIFF%[address]Eosinophils #/vol (Bld)0.00 10*3/eJZ93JALXGBD[address] [place], [place] [address]Eosinophils/100 WBC (Bld)0.7 %0 - 11 %[address]ETErythrocyte distribution width Ratio (RBC)13.9 %11.5 - 14.5 %[address]ETHematocrit Volume Fraction (Bld)33.6 %Low36 - 48 % [address]ETHemoglobin mass conc (Bld)11.5 g/dL[address] Interpretation and review of laboratory resultsAbnormalO82 MOORE STREETLymphocytes #/vol (Bld)0.70 10*3/X10 [address]Lymphocytes/100 WBC (Bld)14.4 %Low20 - 55 %[address] MCH Entitic mass (RBC)34.7 pg26 - 35 [address]MCHC mass conc (RBC)34.1 g/dL[address]MCV Entitic volume (RBC)101.8 fL53 [address] StreetMonocytes #/vol (Bld)0.5 10*3/[address]Monocytes/100 WBC (Bld)9.8 %0 - 10 %[address]Neutrophils #/vol (Bld)3.7 10*3/[address] Neutrophils/100 WBC (Bld)74.9 %37 - 75 %[address]Platelet mean volume Entitic volume (Bld)7.2 fL54 [address] StreetPlatelets #/vol (Bld)202 10*3/02 Leon StreetRBC #/vol (Bld) 3.30 10*6/32 [address] StreetWBC #/vol (Bld)4.9 10*3/02 Leon StreetREPEAT ABO/RH (D) TYPINGon 34-62-5142SPM and Rh group Nom (Bld )PositiveONT71 [address] STREETSCREEN: MRSA ONLY, NARES (ISOLATION SCREEN)on 82-02-1451XNCT isol Org specific cx Ql (Nose)Negative [address]STAPHYOCOCCUS AUREUS BY PCRNegativeONT71 [address]ETComment on above:TESTING PERFORMED BY PCRXR KNEE LEFT 2 VIEWSon 15-38-0016Jite, Interfaces - 11/21/2018 3:12 PM EST XR [...] malalignment or acute fracture.RADIOLOGYBasic Metabolic Panel on 12-49-3449Crvidtc4.2 mg/dLNormal8.4-10.2[address] HospitalComment on above:Performed By: #### CHEM8 ####Unless otherwise noted, all testing performed by [place] [address] [address], [place] [phone]: [id number] Director: Ramon Araujo M.D.Tnotdtxi670 mmol/LQfmt62-[address] HospitalCommarshfield medical center on above:Performed By: #### CHEM8 ####Unless otherwise noted, all testing performed by [address] [phone]: [id number] Director: Ramon Araujo M.D.CO227 mmol/TOaimci46-00UfsmHxakouWilson Street Hospital Comment on above:Performed By: #### CHEM8 ####Unless otherwise noted, all testing performed by [address] [phone]: [id number] Director: Ramon Araujo M.D.Creatinine0.60 mg/dLNormal 0.60-1.20[address] HospitalComment on above:Performed By: #### CHEM8 ####Unless otherwise noted, all testing performed by [address] [phone]: [id number] Director: Ramon Araujo M.D.eGFR (black)mL/min/{1.73_m2}[facility] HospitalComment on above:Result Comment: GFR CalcPerformed By: #### CHEM8 ####Unless otherwise noted, all testing performed by [address] [phone]: [id number] Director: Ramon Araujo M.D.eGFR (non-black)mL/min/{1.73_m2}[facility] HospitalCommarshfield [facility] center on above:Result Comment: Non- GFR CalceGFR is [...] ####Unless otherwise noted, all testing performed by [address] [phone]: [id number] Director: Ramon Araujo M.D.Glucose mass conc87 mg/gYDlsejp19-83JsijJpugvuTuscarawas Hospital on above:Result Comment: This test result might be falsely depressed or falsely elevated onsamples drawn from patients taking Sulfasalazine and Sulfapyridine.Venipuncture should occur prior to taking either of these drugs.Performed By: #### CHEM8 ####Unless otherwise noted, all testing performed by [address] [phone]: [id number] Director: Ramon Araujo M.D.Potassium molar conc4.2 mmol/LNormal3.5-5.1[facility] on above:Performed By: #### CHEM8 ####Unless otherwise noted, all testing performed by [address] [phone]: [id number] Director: Ramon Araujo M.D.Rgbcpu404 mmol/OPdiawz508-213AenoGlvkokSheltering Arms Hospital on above: Performed By: #### CHEM8 ####Unless otherwise noted, all testing performed by [address] [phone]: [id number] Director: Ramon Araujo M.D.Urea jzrejybs99 mg/dLNormal8-25OhSheltering Arms Hospital on above:Performed By: #### CHEM8 ####Unless otherwise noted, all testing performed by [address] [phone]: [id number] Director: Ramon Araujo M.D.[facility] Reporton [id number] Services Clinic ReportType: OrthopedicDictated by: To be [...] weeks. Dictated by KAREEM Croft, for Dr. Mcclure.[facility] CenterHistory and Physical Reporton [id number] and Physical ReportType: SurgicalDictated by: To Be Signed by: Transcribed by: Transcribed Date/Time: 06/23/2017 11:46Dictation Date/Time: 06/22/2017 17:52Report: DATE OF VISIT: 06/22/2017 HISTORY OF PRESENT ILLNESS: Patient is here today for evaluation and treatment of her failed left total knee arthroplasty. She isan established patient of [facility]. She was last seen on 04/27/2017, diagnosed [...] have transportation to go to outpatient therapy ifneeded. The patient has a walker, commode chair, shower chair, and a cane in the home for equipment. She is not followed by cardiology. The patient is followed by Dr. Jeffrey of pain management. The patient is followed by Dr. Monaco, a all around presser and by Dr. Lili Parks, a neurologist. 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 SOCIAL HISTORY: She lives alone and has no children. No smoking, alcohol, or drug use. The patient is seen by a all around presser, has a pain specialist, and a neurologist. [...] and OT. 2) Orders reviewed and continue same.[facility]. difficile Assayon 07-24-2017C. difficile interpretationNegativeNoMemorial Hospital Comment on above:Result Comment: Rapid test procedural control acceptable. Performed By: #### zCDIF ####Unless otherwise noted, all testing performed by [address] [phone]: [id number] Director: Ramon Araujo M.D.Specimen Acceptable (CDIF)on [id number] Acceptable (CDIF)YESNoMemorial HospitalComment on above:Result Comment: C. difficile testing result(s) to follow.Performed By: #### CDSPEC ####Unless otherwise noted, all testing performed by [address] [phone]: [id number] Director: Ramon Araujo M.D.CBC with Diffon [id number] Auto #/vol (Bld)0.0 K/mcLNormal0-0.2[address] HospitalComment on above:Performed By: #### CBCDIF, CMET, TSH ####Unless otherwise noted, all testing performed by [address] [phone]: [id number] Director: Ramon Araujo M.D. Basophils/100 WBC Auto (Bld)0.5 %[facility] Comment on above:Performed By: #### CBCDIF, CMET, TSH ####Unless otherwise noted, all testing performed by [address] [phone] [phone]: [id number] Director: Ramon Araujo M.D.Eosinophils0.1 K/mcLNormal0-0.5[address] HospitalCommarshfield medical center on above: Performed By: #### CBCDIF, CMET, TSH ####Unless otherwise noted, all testing performed by [address] [phone]: [id number] Director: Ramon Araujo M.D.Eosinophils/100 leukocytes1.7 % NormalTuscarawas Hospital on above:Performed By: #### CBCDIF, CMET, TSH ####Unless otherwise noted, all testing performed by [address] [phone]: [id number] Director: Ramon Araujo M.D.Erythrocyte distribution width Auto Ratio (RBC)14.6 %High 10.0-14.4[address] HospitalCommarshfield medical center on above:Performed By: #### CBCDIF, CMET, TSH ####Unless otherwise noted, all testing performed by [address] [phone]: [id number] Director: Ramon Araujo M.D.Erythrocytes (RBC)3.32 M/mcLLow3.7-5.0[facility] on above:Performed By: #### CBCDIF, CMET, TSH ####Unless otherwise noted, all testing performed by [address] [phone]: [id number] Director: Ramon Araujo M.D.Hematocrit (HCT)33.9 %Low34.4-44.8[facility] on above:Performed By: #### CBCDIF, CMET, TSH ####Unless otherwise noted, all testing performed by [address] [phone]: [id number] Director: Ramon Araujo M.D.Hemoglobin mass conc (Bld)11.8 g/hREakhkm99.6-15.4[facility] on above: Performed By: #### CBCDIF, CMET, TSH ####Unless otherwise noted, all testing performed by [address] [phone]: [id number] Director: Ramon Araujo M.D.Lymphocytes0.8 K/mcLLow1.0-3.7 [facility] on above:Performed By: #### CBCDIF, CMET, TSH ####Unless otherwise noted, all testing performed by [address] [phone]: [id number] Director: Ramon Araujo M.D.Lymphocytes/100 .3 %NormalTuscarawas Hospital on above:Performed By: #### CBCDIF, CMET, TSH ####Unless otherwise noted, all testing performed by [address] [phone]: [id number] Director: Ramon Araujo M.D.MCH35.6 pg High27.9-33.9[facility] on above:Performed By: #### CBCDIF, CMET, TSH ####Unless otherwise noted, all testing performed by [address] [phone]: [id number] Director: Ramon Araujo M.D.MCHC mass conc (RBC)34.8 g/gTRyvbfb93.1-35.1[facility] on above:Performed By: #### CBCDIF, CMET, TSH ####Unless otherwise noted, all testing performed by [address] [phone]: [id number] Director: Ramon Araujo M.D.OHA086.1 pIFmgf32.6-98.9[facility] on above: Performed By: #### CBCDIF, CMET, TSH ####Unless otherwise noted, all testing performed by [address] [phone]: [id number] Director: Ramon Araujo M.D.Monocytes0.6 K/mcLNormal0.1-0.6 [facility] on above:Performed By: #### CBCDIF, CMET, TSH ####Unless otherwise noted, all testing performed by [address] [phone]: [id number] Director: Ramon Araujo M.D.Monocytes/100 gtizgmmdpd80.1 %NormalTuscarawas Hospital on above:Performed By: #### CBCDIF, CMET, TSH ####Unless otherwise noted, all testing performed by [facility] [address] [id number] [phone]: [id number] Director: Ramon Araujo M.D.Neutrophils3.1 K/mcLNormal1.2-6.9[facility] on above: Performed By: #### CBCDIF, CMET, TSH ####Unless otherwise noted, all testing performed by [address] [phone]: [id number] Director: Ramon Araujo M.D.Platelet mean volume (PMV)7.4 fL Normal7.0-10.6[facility] [address] HospitalCommarshfield medical center on above: Performed By: #### CBCDIF, CMET, TSH ####Unless otherwise noted, all testing performed by [address] [phone]: [id number] Director: Ramon Araujo M.D.Gprwqllnh104 K/xwJGkmvkf622-971 [facility] on above:Performed By: #### CBCDIF, CMET, TSH ####Unless otherwise noted, all testing performed by [address] [phone]: [id number] Director: Ramon Araujo M.D.Segmented Neut %66.4 %NormalWilson Street HospitalCommarshfield medical center on above:Performed By: #### CBCDIF, CMET, TSH ####Unless otherwise noted, all testing performed by [address] [phone]: [id number] Director: Ramon Araujo M.D.WBC (Leukocytes) 4.6 K/mcLNormal3.4-10.6[facility] on above:Performed By: #### CBCDIF, CMET, TSH ####Unless otherwise noted, all testing performed by [address] [phone]: [id number] Director: Ramon Araujo M.D.Comprehensive Metabolic Panel 37-01-7576Tczfcsr aminotransferase (ALT)27 U/CZdhtyg49-48JehmMlhtsgWilson [address] HospitalCommarshfield medical center on above:Result Comment: This test result might be falsely depressed or falsely elevated onsamples drawn from patients taking Sulfasalazine and Sulfapyridine.Venipuncture should occur prior to taking either of these drugs.Performed By: #### CBCDIF, CMET, TSH ####Unless otherwise noted, all testing performed by [address] [phone]: [id number] Director: Ramon Araujo M.D.Albumin2.8 g/dLLow3.2-5.2 [facility] on above:Performed By: #### CBCDIF, CMET, TSH ####Unless otherwise noted, all testing performed by [address] [phone]: [id number] Director: Ramon Araujo M.D.Alkaline phosphatase (ALP)53 U/ATrqspu68-782UybrHldfpyTuscarawas Hospital on above:Performed By: #### CBCDIF, CMET, TSH ####Unless otherwise noted, all testing performed by [address] [phone]: [id number] Director: Ramon Araujo M.D.Aspartate aminotransferase (AST)32 U/LNormal0-45[facility] Comment on above:Result Comment: This test result might be falsely depressed or falsely elevated onsamples drawn from patients taking Sulfasalazine and Sulfapyridine.Venipuncture should occur prior to taking either of these drugs. Performed By: #### CBCDIF, CMET, TSH ####Unless otherwise noted, all testing performed by [address] [phone]: [id number] Director: Ramon Araujo M.D.Bilirubin (total)0.9 mg/dLNormal 0.3-1.2[address] HospitalComment on above:Performed By: #### CBCDIF, CMET, TSH ####Unless otherwise noted, all testing performed by [address] [phone]: [id number] Director: Ramon Araujo M.D.Calcium8.7 mg/dLNormal8.4-10.2[address] HospitalComment on above:Performed By: #### CBCDIF, CMET, TSH ####Unless otherwise noted, all testing performed by [address] [phone]: [id number] Director: Ramon Araujo M.D.Xgcbxuds624 mmol/EHxdzrv79-089WnpoCzwpnmWilson [address] HospitalCommarshfield medical center on above: Performed By: #### CBCDIF, CMET, TSH ####Unless otherwise noted, all testing performed by [address] [phone]: [id number] Director: Ramon Araujo M.D.CO226 mmol/JFhprkg74-76KiwrDeqgtdTuscarawas Hospital on above:Performed By: #### CBCDIF, CMET, TSH ####Unless otherwise noted, all testing performed by [address] [phone]: [id number] Director: Ramon Araujo M.D.Creatinine0.57 mg/dLLow0.60-1.20[address] HospitalCommarshfield medical center on above:Performed By: #### CBCDIF, CMET, TSH ####Unless otherwise noted, all testing performed by [address] [id number] [phone]: [id number] Director: Ramon Araujo M.D.eGFR (black) mL/min/{1.73_m2}[facility] HospitalCommarsh[facility] center on above: Result Comment: GFR CalcPerformed By: #### CBCDIF, CMET, TSH ####Unless otherwise noted, all testing performed by [address] [phone]: [id number] Director: Ramon Araujo M.D.eGFR (non-black)mL/min/{1.73_m2}[facility] Comment on above:Result Comment: Non- GFR [...] ####Unless otherwise noted, all testing performed by [address] [phone]: [id number] Director: Ramon Araujo M.D.Glucose mass conc86 mg/qOHbscyl13-34DidsNhvbzvTuscarawas Hospital on above:Result Comment: This test result might be falsely depressed or falsely elevated onsamples drawn from patients taking Sulfasalazine and Sulfapyridine.Venipuncture should occur prior to taking either of these drugs.Performed By: #### CBCDIF, CMET, TSH ####Unless otherwise noted, all testing performed by [address] [phone]: [id number] Director: Ramon Araujo M.D.Potassium molar conc3.7 mmol/L Normal3.5-5.1[facility] on above:Performed By: #### CBCDIF, CMET, TSH ####Unless otherwise noted, all testing performed by [address] [phone]: [id number] Director: Ramon Araujo M.D.Protein6.1 g/dLNormal6.0-8.0[facility] on above:Performed By: #### CBCDIF, CMET, TSH ####Unless otherwise noted, all testing performed by [address] [id number] [phone]: [id number] Director: Ramon Araujo M.D.Mqacue947 mmol/L Vaarej124-330SyzxZawckvSheltering Arms Hospital on above:Performed By: #### CBCDIF, CMET, TSH ####Unless otherwise noted, all testing performed by [address] [phone]: [id number] Director: Ramon Araujo M.D.Urea bxzvyngl86 mg/dLNormal8-25[facility] on above:Performed By: #### CBCDIF, CMET, TSH ####Unless otherwise noted, all testing performed by [address] 213351 [phone]: [id number] Director: Ramon Araujo M.D.TSHon 07-23-2017 Thyroid stimulating hormone (TSH)1.67 uIU/mLNormal0.320-5.000[facility] on above:Performed By: #### CBCDIF, CMET, TSH ####Unless otherwise noted, all testing performed by [address] [phone]: [id number] Director: Ramon Araujo M.D.[facility] 91-05-1927OTE NOTESNormalAvita [facility] NOTEon 07-21-2017 [facility] NOTESNormalAvita [facility] HospitalOSU NOTESNormalAv[facility] HospitalOSU NOTESNormalAvita [facility] HospitalOSU NOTESNormalAvita [facility] HospitalOSU NOTES NormalAvita [facility] HospitalOSU NOTESNormalAvita [facility] 49-12-8993ZOI [facility] CAC NOTESNormalAvita [facility] HospitalOSU NOTESNormalAvita [facility] HospitalOSU [facility] CAC NOTESNormalAvita [facility] HospitalOSU NOTESNormalAv[facility] HospitalOSU [facility] CAC NOTESNormalAvita [facility] HospitalOSU NOTESNormal[facility] 46-99-3665CBB NOTESNormalAv[facility] HospitalOSU NOTESNormalAv[facility] HospitalOSU NOTESNormalAvita [facility] HospitalOS NOTES NormalAvita [facility] NOTEon 33-18-1072UWD NOTESNormalAv[facility] HospitalOSU NOTESNormalAv[facility] HospitalOSU NOTESNormal[facility] NOTESNormalAvita [place] HospitalPLAN OF CAREon 28-72-9718KPM HIM CAC NOTES NormalAvita [facility] HospitalOSU NOTESNormalAvita [facility] HospitalOSU HIM CAC NOTES NormalAvita [facility] HospitalOSU NOTESNormalAv[facility] HospitalPROGRESSon 34-57-6186YYF NOTESNormalAv[facility] HospitalOSU NOTESNormalAv[facility] HospitalOSU NOTESNormalAv[facility] HospitalOSU NOTESNormal[facility] NOTESNormalAv[facility] HospitalOSU NOTESNormalAv[facility] HospitalOSU NOTESNormalAv[facility] HospitalOSU NOTESNormal[facility] HospitalOSU NOTES NormalAv[facility] HospitalOSU NOTESNormalAv[facility] HospitalOSU NOTESNormal [facility] HospitalAnes Post-opon 37-12-4556UOJ [facility] CAC NOTESNormalAvita [place] HospitalCONSULTon 71-29-6438AFS NOTESNormalAvita [facility] 77-08-4211RCL [facility] CAC NOTESNormalAvita [facility] HospitalNURSING NOTEon 12-15-4463TNP NOTESNormalAv[facility] HospitalOSU NOTESNormalAv[facility] HospitalOSU NOTESNormalAv[facility] HospitalOSU NOTESNormal[facility] HospitalOSU NOTESNormal[facility] HospitalOSU NOTESNormal[facility] NOTESNormalAv[facility] HospitalOSU NOTESNormal[facility] HospitalOSU NOTESNormal[facility] HospitalOSU NOTESNormalAv[facility] HospitalOSU NOTES NormalAv[facility] HospitalOSU NOTESNormalAvita [facility] HospitalB[facility] OF CAREon 51-54-7599MFU HIM CAC NOTESNormalAv[facility] HospitalOSU NOTESNormalAv[facility] HospitalOSU [facility] CAC NOTESNormalAvita [facility] HospitalOSU NOTESNormalAv[facility] HospitalPROGRESSon 24-31-4327WLB NOTESNormalAv[facility] HospitalOSU NOTESNormalAv[facility] HospitalOSU NOTESNormalAv[facility] HospitalOSU NOTES NormalAv[facility] HospitalOSU NOTESNormal[facility] HospitalOSU NOTESNormal [facility] HospitalOSU NOTESNormal[facility] HospitalOSU NOTESNormalAv[facility] HospitalOSU NOTESNormalAvita [facility] HospitalBRIEF OP NOTon 06-53-6051FIB HIM CAC NOTESNormalAvita [facility] HospitalOP NOTEon 35-39-9683JZU NOTESNormalAvita [facility] HospitalOR NURSINGon 27-10-7040JCI HIM CAC NOTESNormNewark [facility] HospitalXR KNEE LEFT 2 VIEWSon 18-54-3064JJ KNEE LEFT 2 VIEWSXR KNEE LEFT 2 VIEWSEXAM: Left knee, 2 views.INDICATION: Status post total left knee arthroplasty.COMPARISON: None.FINDINGS: There are post total left knee arthroplasty changes identified, including soft tissue swelling, soft tissue emphysema, and surgical clips within the anterior compartment. Thealignment is satisfactory.IMPRESSION:Status post total left knee arthroplasty changes as above in satisfactory alignment.[facility] HospitalPROGRESSon 07-01-2017 [facility]ES[facility] Vital Signs Date TimeVital SignValuePerforming TsnxzfmujKhkuefig73-21-9656 09:55-0500 Diastolic blood ishbinyr959 mm[Hg]Yulisa Batres MD Work Phone: [facility]11-12-2025 09:55-0500 Heart rate64 /Martin Batres MD Work Phone: [phone])[address]170 [address]11-12-2025 09:55-0500 SaO2% (BldA) [Mass fraction]100 %Yulisa Batres MD Work Phone: 1([phone] [place], [place] [address]11-12-2025 09:55-0500 Systolic blood oasfruwa272 mm[Hg]Yulisa Batres MD Work Phone: [phone])48070 [address]10-30-2025 08:25-0400 Body labspj636.7 cmElie Harper DPM Work Phone: [facility] LouisDdhrccpppm43-90-5286 08:25-0400Body mass index (BMI) [Ratio]33.75 kg/f2Cckhwppu Meredith DPM Work Phone: [facility] LouisAvlkdiecwx40-59-2588 08:25-0400Body etsntx823.7 kgElie Harper DPM Work Phone: [facility] LouisZqgukjldnm70-97-4843 08:25-0400Respiratory rate18 /minElie Meredith DPM Work Phone: [facility] LouisLlbkvauugy42-35-6721 09:46-0400Diastolic blood mpawahbm667 mm[Hg]Yulisa Batres MD Work Phone: 1([phone])69770 [address]09-16-2025 09:46-0400 Heart rate67 /Martin Batres MD Work Phone: [phone])54570 [address]09-16-2025 09:46-0400 SaO2% (BldA) [Mass fraction]96 %Yulisa Batres MD Work Phone: [phone])98270 [address]09-16-2025 09:46-0400 Systolic blood yzhjejkj006 mm[Hg]Yulisa Batres MD Work Phone: [phone])11570 [address]09-10-2025 10:44-0400 Body ogdixa15.96 kgDolemuel Batres MD Work Phone: [phone])53870 [address]09-10-2025 10:44-0400 Diastolic blood frlsnwku449 mm[Hg]Yulisa Batres MD Work Phone: 1(332)72270 [address]09-10-2025 10:44-0400 Heart rate69 /Martin Batres MD Work Phone: 1([phone] [place], [place] 2836309-10-2025 10:44-0400 SaO2% (BldA) [Mass fraction]95 %Yulisa Batres MD Work Phone: 1(716)192-[address] [place], [place] 2836309-10-2025 10:44-0400 Systolic blood qjlimdhp117 mm[Hg]Yulisa Batres MD Work Phone: [phone])66070 [address]08-14-2025 08:26-0400 Body latajd648.7 cmElie Harper DPM Work Phone: [facility] LouisVtpbqcvavx08-95-6177 08:26-0400Body mass index (BMI) [Ratio]33.75 kg/h0QthfkxmtElie Harper DPM Work Phone: [facility] LouisFrwoldyiss76-83-4205 08:26-0400Body pmfcej120.7 kgElie Harper DPM Work Phone: [facility] LouisCbakosxgdj00-03-6555 08:26-0400Respiratory rate16 /minElie Harper DPM Work Phone: [facility] LouisFulikvxidi22-57-2015 10:01-0400Diastolic blood kpwiqqvp38 mm[Hg]Yulisa Batres MD Work Phone: [phone] [address]08-07-2025 10:01-0400 Heart rate72 /Martin Batres MD Work Phone: [phone])06470 [address]08-07-2025 10:01-0400 SaO2% (BldA) [Mass fraction]97 %Yulisa Batres MD Work Phone: [phone] [place], [place] 1486408-07-2025 10:01-0400 Systolic blood awoevkot180 mm[Hg]Yulisa Batres MD Work Phone: [phone])76170 [address]06-25-2025 09:43-0400 Body szcuzg068.72 cmYulisa Batres MD Work Phone: 1([phone])71170 [address]06-25-2025 09:43-0400 Body mass index (BMI) [Ratio]33.7 kg/w7JftmcixYulisa Batres MD Work Phone: 1([phone])34970 [address]06-25-2025 09:43-0400 Body maaqul195.69 kgYulisa Batres MD Work Phone: [phone] [place], [place] 1486406-25-2025 09:43-0400 Diastolic blood pkfvhham836 mm[Hg]Yulisa Batres MD Work Phone: 1([phone])7[address]70 [address]06-25-2025 09:43-0400 Heart rate66 /Martin Batres MD Work Phone: [facility]06-25-2025 09:43-0400 Respiratory rate16 /Martin Batres MD Work Phone: [facility]06-25-2025 09:43-0400 SaO2% (BldA) [Mass fraction]97 %Yulisa Batres MD Work Phone: [facility]06-25-2025 09:43-0400 Systolic blood acccyese496 mm[Hg]Yulisa Batres MD Work Phone: [facility]05-29-2025 11:59-0400 Body galvsr043.7 cmNicholas Brown DPM Work Phone: [phone] [place], [place] [address]Ektjjhziqe33-90-9760 11:59-0400Body mass index (BMI) [Ratio]33.75 kg/o2Snakgktd Brown DPM Work Phone: 1(339)[address]05-29-2025 11:59-0400Body .7 kgNicholas Brown DPM Work Phone: 1(284)686-[address] [place], [place] [address]Xfafvterse69-72-7453 11:59-0400Respiratory rate18 /minNicholas Brown DPM Work Phone: [phone] [facility], [facility] LouisTvnvanvrcp59-41-7793 08:32-0400Body nndlme359.7 cmNicholas Brown DPM Work Phone: [phone] [place], [place] [address]Gtubraqpji82-68-8831 08:32-0400Body mass index (BMI) [Ratio]33.75 kg/v8Cjdxufjx Brown DPM Work Phone: [phone] [place], [place] [address]Ckimouojdr82-28-9186 08:32-0400Body yesnvh972.7 kgNicholas Brown DPM Work Phone: [phone] [place], [place] [address]Fqqhnrjklk10-46-7104 08:32-0400Respiratory rate16 /minNicholas Brown DPM Work Phone: [facility] LouisShjckdyjzo92-27-3492 09:15-0400Diastolic blood uwuxxluu86 mm[Hg]Magalie Mandeep DO Work Phone: [facility] LouisFwosnqxexe35-95-7403 09:15-0400Heart rate71 /min Magalie Mandeep DO Work Phone: noSSM Health CareKywxyquxfw63-53-6921 09:15-4318FmM3% (BldA) [Mass fraction]96 %Magalie Mandeep DO Work Phone: noSSM Health CareItkpqpqgpa04-12-5271 09:15-0400Systolic blood zmuaykwi695 mm[Hg]Magalie Mandeep DO Work Phone: [place] [address]Uranvfsiul23-57-4028 14:03-0400Body .7 cmNicholas Brown DPM Work Phone: [place] [address]Jnygtpnxeh89-85-3217 14:03-0400Body mass index (BMI) [Ratio]33.75 kg/u5Vzyrkffg Brown DPM Work Phone: [facility] LouisUohocecdfj44-06-2007 14:03-0400Body rfvfva276.7 kgNicholas Brown DPM Work Phone: [place] [address]Hlgmxxfufh77-64-7867 14:03-0400Respiratory rate18 /minNicholas Brown DPM Work Phone: [place] [address]Wpwrzadyyj64-34-3216 15:43-0400Body zxbfno547.7 cmNicholas Brown DPM Work Phone: [place] [address]Qqnpayapix77-34-2708 15:43-0400Body mass index (BMI) [Ratio]33.75 kg/p1Plmjilog Brown DPM Work Phone: [place] [address]Ltnjdhkuth65-29-9611 15:43-0400Body bdsaqs498.7 kgNicholas Brown DPM Work Phone: [place] [address]Yzffccpdpw49-85-5542 15:43-0400Respiratory rate18 /minNicholas Brown DPM Work Phone: [place] [address]Ciwulkozgw95-42-9501 14:21-0400Body ciwqly943.7 cmNicholas Brown DPM Work Phone: [facility] LouisFrvyjonsuo51-45-7644 14:21-0400Body mass index (BMI) [Ratio]33.75 kg/a7Laduxdpd Brown DPM Work Phone: [facility] LouisHtogirzlrq63-41-2777 14:21-0400Body bagkii083.7 kgNicholas Brown DPM Work Phone: [facility] LouisRgktsiwnal68-31-6147 14:21-0400Respiratory rate18 /minNicholas Brown DPM Work Phone: [facility] LouisBbectgtgst06-91-6936 10:12-0400Body ptfyya901.7 cmNicholas Brown DPM Work Phone: [facility] LouisMsevlevlob60-14-9191 10:12-0400Body mass index (BMI) [Ratio]33.75 kg/s8Pzgrapzn Brown DPM Work Phone: [facility] LouisKfrjdaykdv01-80-6539 10:12-0400Body lecguz570.7 kgNicholas Brown DPM Work Phone: [facility] LouisSqayebcatn38-66-1498 10:12-0400Respiratory rate18 /minNicholas Brown DPM Work Phone: [facility] LouisRchxvucgul05-74-9668 10:22-0500Body xokolt544.7 cmNicholas Brown DPM Work Phone: [facility] LouisOgplxtuvwk94-48-1589 10:22-0500Body mass index (BMI) [Ratio]33.75 kg/r1Aanyicny Brown DPM Work Phone: [facility] LouisQxtlrnraej51-73-6167 10:22-0500Body hqfils846.7 kgNicholas Brown DPM Work Phone: [facility] LouisOxicxqpjat12-48-7595 10:22-0500Respiratory rate18 /minNicholas Brown DPM Work Phone: [facility] LouisAiqmvrrirb74-17-4936 15:04-0500Body .7 cmNicholas Brown DPM Work Phone: noSSM Health CareCaubfexcgf32-10-5360 15:04-0500Body mass index (BMI) [Ratio]33.75 kg/z2ArcxkjtcElie Harper DPM Work Phone: noSSM Health CareYtizxjmmnt36-59-9056 15:04-0500Body racgoa299.7 kgElie Hraper DPM Work Phone: noSSM Health CareDvzyolekpu49-85-1866 15:04-0500Respiratory rate18 /minElie Harper DPM Work Phone: [facility] LouisGzfvdrmhfh55-25-1456 11:30-0500Body mass index (BMI) [Ratio]33.75 kg/t4UrggeGaby Christianson CAT SCAN TECH Work Phone: [facility] LouisZnovkjqjiq98-54-9245 11:30-0500Body vxodhm902.7 kgGaby Christianson CAT SCAN TECH Work Phone: [facility] LouisLqssiibasr83-34-8037 11:30-0500Diastolic blood kujqkyid63 mm[Hg]Gaby Christianson CAT SCAN TECH Work Phone: [facility] LouisUizjjpgley47-25-9335 11:30-0500Heart rate85 /min Gaby Christianson CAT SCAN TECH Work Phone: noSSM Health CareFyhkyvjydk87-92-7896 11:30-7881DiE6% (BldA) [Mass fraction]97 %Gaby Christianson CAT SCAN TECH Work Phone: noSSM Health CareLuqghaymes15-78-2898 11:30-0500Systolic blood ntmqjwwa863 mm[Hg]Gaby Christianson CAT SCAN TECH Work Phone: [facility] LouisDffiuxicrt39-18-8056 11:19-0500Body trcubz439.2 Jones Mcclure MD Work Phone: [facility] HospitalSglxtl62-89-9164 11:19-0500Body mass index (BMI) [Ratio]36.96 kg/u3KnyfvNew Mcclure MD Work Phone: [facility] HospitalNgmhzh17-86-6607 11:19-0500Body weight 107.05 kgNew Mcclure MD Work Phone: [facility]01-09-2025 14:19-0500Body height 172.7 cmElie Harper DPM Work Phone: [facility] LouisQcnitpsvpt82-47-5873 14:19-0500Body mass index (BMI) [Ratio]34.67 kg/d5SexcuxihElie Harper DPM Work Phone: [facility] LouisHmqnjttbiw58-72-1171 14:19-0500Body pravbc273.42 kgElie Harper DPM Work Phone: [facility] LouisZgjgroafjm13-28-5313 14:19-0500Respiratory rate18 /minElie Harper DPM Work Phone: [facility] LouisKobfgkxdiw25-69-5124 11:39-0500Diastolic blood fduuorhu52 mm[Hg]Magalie Mandeep DO Work Phone: [facility] LouisKumlanjhsu39-36-1039 11:39-0500Heart rate76 /min Magalie Mandeep DO Work Phone: [facility] LouisJwmoxzgekg24-90-2011 11:39-2048UbN2% (BldA) [Mass fraction]99 %Magalie Mandeep DO Work Phone: [facility] LouisFjrthpuuge54-18-8290 11:39-0500Systolic blood oxjkjrvc921 mm[Hg]Magalie Mandeep DO Work Phone: [facility] LouisNaoneyaxjb46-53-4088 14:08-0500Body mass index (BMI) [Ratio]34.67 kg/t0Yfvgydkanjt Moni DO Work Phone: [facility] LouisPzqdytyryi85-37-7676 14:08-0500Body stjulz779.42 kgChristopher Moni DO Work Phone: [facility] LouisAsgbvmgfes89-79-3330 14:08-0500Diastolic blood rrbjhcoe19 mm[Hg]Christopher Moni DO Work Phone: [facility] LouisRvupkbaano66-19-3361 14:08-0500Heart rate76 /min Christopher Moni DO Work Phone: [place] [address]Xsznjwuqzj77-79-4926 14:08-3801JcM8% (BldA) [Mass fraction]93 %Shante Montenegro DO Work Phone: [facility] LouisMtktfrzdep89-57-5003 14:08-0500Systolic blood kizmmbxe485 mm[Hg]Shante Montenegro DO Work Phone: [facility] LouisWbrunrvmtr14-34-2553 14:36-0400Body ysanvb372.7 cmLizjarret Harper DPM Work Phone: [phone] [place], [place] [address]Kuanirfvjj53-40-9399 14:36-0400Body mass index (BMI) [Ratio]34.21 kg/y9XhscisxlElie Harper DPM Work Phone: [phone] [place], [place] [address]Jokuveczse47-39-5294 14:36-0400Body .06 kgLizjarret Harper DPM Work Phone: [phone] [place], [place] [address]Vbdehyielg53-51-7529 14:36-0400Diastolic blood bcestdml24 mm[Hg]Elie Meredith DPM Work Phone: [phone] [place], [place] [address]Txyfamuegx13-59-3239 14:36-0400Heart rate82 /min Elie Brown DPM Work Phone: [phone] [place], [place] [address]Twfwtrcrxl94-00-3941 14:36-0400Systolic blood hoknrore279 mm[Hg]Elie Brown DPM Work Phone: [phone] [place], [place] [address]Vjifhbpjdt57-34-3565 11:30-0400Body xplyld159.7 cmElie Harper DPM Work Phone: [phone] [place], [place] [address]Dyomjbcqwc60-09-9999 11:30-0400Body mass index (BMI) [Ratio]34.21 kg/h6GdooshicElie Harper DPM Work Phone: [phone] [place], [place] [address]Mansvraxvj84-70-9043 11:30-0400Body stwrau365.06 kgElie Harper DPM Work Phone: [phone] [place], [place] [address]Gdgiutnytx61-68-5966 11:30-0400Respiratory rate17 /minElie Harper DPM Work Phone: [phone] [place], [place] [address]Cntgntxidt63-87-9589 10:36-0400Body oesxys463.7 cmLizjarert Harper DPM Work Phone: [place] [address]Butlkmhayj13-70-7176 10:36-0400Body mass index (BMI) [Ratio]34.21 kg/f4Qtadrzap Brown DPM Work Phone: [place] [address]Iltlusfllc17-92-6329 10:36-0400Body eofirj469.06 kgLizjarret Harper DPM Work Phone: [place] [address]Fzxytjxjsl40-72-0337 10:36-0400Diastolic blood mm[Hg]Elie Meredith DPM Work Phone: [place] [address]Tchouhayyz88-29-3581 10:36-0400Heart rate74 /min Elie Harper DPM Work Phone: [place] [address]Ppebaiqksl26-61-7976 10:36-0400Respiratory rate18 /minLizjarret Harper DPM Work Phone: [place] [address]Buwiauvmhl29-84-7688 10:36-0400Systolic blood abbjvhre933 mm[Hg]Elie Harper DPM Work Phone: [place] [address]Pfztmuwxgr67-03-7800 12:37-0400Diastolic blood ffzufxfz77 mm[Hg]Magalie Mandeep DO Work Phone: [place] [address]Hekyugliqy08-46-0064 12:37-0400Heart rate64 /min Magalie Mandeep DO Work Phone: [place] [address]Zvzkpcddli00-18-5312 12:37-5017PjC6% (BldA) [Mass fraction]94 %Magalie Mandeep DO Work Phone: [place] [address]Vkbotjwitu73-88-0097 12:37-0400Systolic blood ioisyvzo375 mm[Hg]Magalie Mandeep DO Work Phone: [place] [address]Dzogfmcvvu93-51-2050 15:22-0400Body ebunmw708.7 cmElie Meredith DPM Work Phone: [place] [address]Aaqhsvsudc33-50-9941 15:22-0400Body mass index (BMI) [Ratio]34.21 kg/y4NjmqpxolElie Harper DPM Work Phone: [facility] LouisCgtqxlsjhg45-87-4796 15:22-0400Body kejgfw901.06 kgElie Harper DPM Work Phone: [facility] LouisVeetbbeiqc69-92-9092 15:22-0400Diastolic blood ilchozze59 mm[Hg]Elie Harper DPM Work Phone: [facility] LouisQmkfeltzju25-51-9890 15:22-0400Heart rate75 /min Elie Harper DPM Work Phone: [facility] LouisKaojfnhfqr11-89-9074 15:22-0400Respiratory rate18 /minElie Meredith DPM Work Phone: [facility] LouisEaumkcvhtq58-70-7916 15:22-0400Systolic blood ooivlrav410 mm[Hg]Elie Harper DPM Work Phone: [facility] LouisZpgjhbpfxn13-10-2995 13:00-0400Body amoblp970.7 Adonay Christianson CAT SCAN TECH Work Phone: [facility] LouisDqloaxgwfm51-58-5180 13:00-0400Body mass index (BMI) [Ratio]34.21 kg/b3SzkbfGaby Christianson CAT SCAN TECH Work Phone: [facility] LouisQiigxexuhd55-56-7382 13:00-0400Body tudfts216.06 kgGaby Fischeroll CAT SCAN TECH Work Phone: [facility] LouisGybmlyqosp28-59-9882 13:00-0400Diastolic blood ljbystbl59 mm[Hg]Gaby Christianson CAT SCAN TECH Work Phone: [facility] LouisJjzhumzcmp63-10-7057 13:00-0400Systolic blood ivhbapso309 mm[Hg]Gaby Fischeroll CAT SCAN TECH Work Phone: [facility] LouisRnhgdqiqlc87-27-5670 14:04-0400Body gwdtin806.7 cmElie Harper DPM Work Phone: [facility] LouisUjlnatdcpu69-27-3077 14:04-0400Body mass index (BMI) [Ratio]33.6 kg/l5Bnmbjopj Brown DPM Work Phone: [facility] LouisYdktpjbwwz80-36-8597 14:04-0400Body qhteig067.25 kgLizjarret Harper DPM Work Phone: [facility] LouisHksctsddom49-45-1243 14:04-0400Diastolic blood mm[Hg]Elie Harper DPM Work Phone: [facility] LouisDxgndrobby32-37-6877 14:04-0400Heart rate80 /min Elie Harper DPM Work Phone: [facility] LouisOmhteqjvnb10-34-3586 14:04-0400Systolic blood wpejokde341 mm[Hg]Elie Harper DPM Work Phone: [facility] LouisYmnlqpbsnf44-29-5102 09:44-0400Body zjxqmu636.2 Jones Mcclure MD Work Phone: [phone])[address]07-25-2024 09:44-0400Body mass index (BMI) [Ratio]37.09 kg/y4WcytrNew Mcclure MD Work Phone: [phone]07-25-2024 09:44-0400Body ilnumjnfpfu04.5 [degF]New Mcclure MD Work Phone: [phone]07-25-2024 09:44-0400Body weight 107.41 kgNew Mcclure MD Work Phone: [phone])[address]05-16-2024 15:49-0400Body height 170.2 Jones Mcclure MD Work Phone: [phone]05-16-2024 15:49-0400Body mass index (BMI) [Ratio]35.4 kg/d9ZrkrqNew Mcclure MD Work Phone: [phone]05-16-2024 15:49-0400Body weight 102.51 kgNew Mcclure MD Work Phone: [phone])[address]04-18-2024 11:02-0400Body height 170.2 cmChad Abby BATCH AND FURNACE MANAGER-METAL CAN INSPECTOR Work Phone: [facility]04-18-2024 11:02-0400Body mass index (BMI) [Ratio]35.4 kg/m2Rajinder Green BATCH AND FURNACE MANAGER-METAL CAN INSPECTOR Work Phone: [facility]04-18-2024 11:02-0400Body weight 102.51 kgChashelbi Green APRN-METAL CAN INSPECTOR Work Phone: [facility]12-28-2023 10:09-0500Diastolic blood ecoczlbs11 mm[Hg]Pepe Chaka Ont [facility]12-28-2023 10:09-0500Systolic blood nxzoeetf715 mm[Hg]Pepe Chaka Ont [facility]12-28-2023 09:53-0500Body gpytyv723.2 cmAvo Chaka Ont [facility]12-28-2023 09:53-0500Body mass index (BMI) [Ratio]34.46 kg/m2Avo Chaka Ont [facility]12-28-2023 09:53-0500Body ghhyhm50.79 kg Pepe Chaka Ont [facility]12-28-2023 09:53-0500Heart rate67 /min Pepe Chaka Ont [facility] SystemComment on above:anzludh83-22-3457 09:53-0500Respiratory rate20 /minAvo Chaka Ont [facility] Comment on above:lungs ksu08-59-9503 09:53-0464ReI6% (BldA) [Mass fraction]96 % Pepe Chaka Ont [facility]10-26-2023 12:59-0400Body .2 Jones Mcclure MD Work Phone: [facility]10-26-2023 12:59-0400Body mass index (BMI) [Ratio]35.4 kg/c0UsklwNew Mcclure MD Work Phone: [facility]10-26-2023 12:59-0400Body mudsrqgbnzp89.2 [degF]New Mcclure MD Work Phone: [facility]10-26-2023 12:59-0400Body weight 102.51 kgNew Mcclure MD Work Phone: [phone]07-13-2023 14:41-0400Body height 172.7 cmChashelbi Green APRN-METAL CAN INSPECTOR Work Phone: [phone] [place], [place] [address]07-13-2023 14:41-0400Body mass index (BMI) [Ratio]34.36 kg/m2Chashelbi Green APRN-METAL CAN INSPECTOR Work Phone: [phone] [place], [place] [address]07-13-2023 14:41-0400Body .59 [degF]Rajindershelbi Green APRN-METAL CAN INSPECTOR Work Phone: [phone] [place], [place] [address]07-13-2023 14:41-0400Body weight 102.51 kgChashelbi Green APRN-METAL CAN INSPECTOR Work Phone: [phone]Sil[facility]10-25-2021 15:30-0400Body height 173.99 cmStephen Alicea Other [facility] Other 10-25-2021 15:30-0400Body mass index (BMI) [Ratio] 30.26 kg/h2NklvelStephen Alicea Other [facility] Other Phone: [phone] 15:30-0400Body siukom53.63 kgDajose Alicea Other [facility] Other 10-25-2021 15:30-0400Diastolic blood spwudygj20 mm[Hg] Stephen Alicea Other [facility] Other 10-25-2021 15:30-0400Systolic blood yyjemwbi428 mm[Hg] Stephen Alicea Other [facility] Other 05-05-2021 13:50-0400Body gcmnza770.7 cmScott Foster MD Work Phone: [facility]05-05-2021 13:50-0400Body mass index (BMI) [Ratio]33.45 kg/j2AksacNew Mcclure MD Work Phone: [facility]05-05-2021 13:50-0400Body flkzzlsgvja65 [degF]New Mcclure MD Work Phone: [facility]05-05-2021 13:50-0400Body weight 99.79 kgNew Mcclure MD Work Phone: [address] [place], [place] [address]01-13-2021 14:21-0500BMI (Body Mass Index)34.1 [facility]01-13-2021 14:21-0500Body Qjnohlmfzrm97.11 [degF][facility]01-13-2021 14:21-0500Body hnlbee095.25 [address] [facility]01-13-2021 14:21-7418Sswwbt952.5 [facility]01-15-2020 13:29-0500BMI (Body Mass Index)33.42 kg/d0[facility]mhMin[facility]01-15-2020 13:29-0500Body Laxjvzdmbxv40 [degF] [facility]01-15-2020 13:29-0500Body crungc17.7 kgMinidoka [facility]01-15-2020 13:29-2283Tyanaw576.7 [facility]06-12-2019 16:28-0400BMI (Body Mass Index)31.02 kg/d2GrcqfMinidoka Memorial Hospital06-12-2019 16:28-0400Body Curuxwknaxn26.59 [degF][facility]06-12-2019 16:28-9130Phnzxu088.7 [place] [address]-12-2019 16:28-6882Mjhhdn10.53 kgMinidoka [facility] Hospital04-25-2019 14:14-0400BMI (Body Mass Index)31.63 kg/m2 [facility]04-25-2019 14:14-0400Body Gcnedbxgrtm80.39 [degF][facility]04-25-2019 14:14-5294Grddvg633.7 [facility] 03-01-2019 14:14-8703Urkqpo59.35 kgMinidoka [facility]02-27-2019 15:24-0500 BMI (Body Mass Index)31.63 kg/t5XrtmlMinidoka Memorial Hospital02-27-2019 15:24-0500 Body Rkiinbrfatd66.3 [degF][facility]02-27-2019 15:24-0500Body mrbcuh56.35 [facility]02-27-2019 15:24-5113Najvgs209.7 [facility]02-07-2019 14:44-0500BMI (Body Mass Index)30.87 kg/m2[facility] Work Phone: 1(319) 604-641702-07-2019 14:44-0500Body Hwofwxucmjk99.9 [degF][facility] Work Phone: 1(673) 405-388902-07-2019 14:44-1246Tzpqko547.7 [facility] Work Phone: 1(537) 741-459102-07-2019 14:44-5432Mjwzue05.08 [facility] Work Phone: 1(122) 569-868401-18-2019 16:57-0500Body Jsbhozohzdp64 [degF][facility] Work Phone: 1(779) 833-203801-18-2019 16:57-0500BP Oboebacjc79 mm[Hg][facility] Work Phone: 1(866) 136-477601-18-2019 16:57-0500BP Jnrayykv129 mm[Hg][facility] Work Phone: 1(569) 604-984401-18-2019 16:57-0500Pulse (Heart Rate)79 /[facility]SAult[facility] Work Phone: 1(621) 238-417501-18-2019 16:57-0500Pulse Upiczbkb13 %[facility] Work Phone: 1(264) 664-968901-18-2019 16:57-0500Respiratory Rate18 /minSorjerad [facility] Work Phone: 1(776) 318-354801-15-2019 09:00-0500BMI (Body Mass Index)32.19 kg/m2 [facility] Work Phone: 1(966) 393-981301-15-2019 09:00-4203Sprhvv701.7 cmSAultman Alliance Community Hospital Work Phone: 1(649) 748-544101-15-2019 09:00-4985Oryezi45.03 [facility] Work Phone: 1(119) 573-618912-17-2018 08:49-0500BP Oftqaglyq81 mm[Hg]Pepe Chaka Ont [facility] Work Phone: 1(411) 257-595212-17-2018 08:49-0500BP Pqopiwtr712 mm[Hg]Pepe Chaka Ont [facility] Work Phone: 1(728) 324-364112-17-2018 08:49-0500Pulse (Heart Rate)100 /minAvo Chaka Ont [facility] Work Phone: 1(767)[phone]1-4600 09:01-0500BMI (Body Mass Index)31.93 kg/m2 Pepe Chaka Ont [facility] Work Phone: 1(781) 644-682412-07-2018 09:01-0500Body Qqihkkxgldt99.81 [degF]Pepe Chaka Ont [facility] Work Phone: 1(995) 559-343712-07-2018 09:01-5440Qouspb982.7 cmAvo Chaka Ont [facility] Work Phone: 1(913) 805-809212-07-2018 09:01-0500Pulse Rhwcpiia84 %Pepe Chaka Ont [facility] Work Phone: 1([phone]5-4252 09:01-0500Respiratory Rate16 /minAvo Chaka Ont [facility] Work Phone: 1(465) 743-293712-07-2018 09:01-3178Shtzhl53.25 kgAvo Chaka Ont [facility] Work Phone: Encounters Encounter DateEncounter TypeCare ProviderFacilityStart: 09-18-2025 End: 21-56-3412jlgvwyftduIhklxkb M Hoy MD Work Phone: -[facility] [place]vueStart: 09-18-2025 End: 34-32-0654Kmpjlhe encounter procedureNicsugar Kaufman DO-[facility] [place] Work Phone: Start: 09-05-2025 End: 41-17-5996Hkhbuj flowsMarbin Harper DPM Work Phone: [facility] CI PODIATRYStart: 09-05-2025 End: 14-18-7146Pizwcd flowsMarbin Caraballo Brown DPM Work Phone: [facility] PODIATRYStart: 09-05-2025 End: 07-14-3296Zwwvsxx encounter procedureNicsharona Harper DPM Work Phone: [facility] CI PODIATRYComment on above:Other polyneuropathy (Primary Dx); Pain due to onychomycosis of toenails of both feetStart: 09-05-2025 End: 75-97-9824tivcdisglwMIKCJVOA A BROWNNot AvailableStart: 07-23-2025 End: 13-91-7707xijhepycjeBdbysge M Hoy MD Work Phone: [facility] Work Phone: Start: 07-23-2025 End: 50-18-4370Fbkkrgy encounter procedureChanali Saavedra DO-[facility] [place] Work Phone: Start: 07-17-2025 End: 10-52-2063asxvnhtfdsHiyknrm M Hoy MD Work Phone: [facility] Work Phone: Start: 07-17-2025 End: 95-60-4446Ktorvmn encounter procedureChanali Saavedra DO-[facility] [place] Work Phone: Start: 06-26-2025 End: 58-61-7279yaciqlzvaoAhhfulr M Hoy MD Work Phone: [facility] Work Phone: Start: 06-26-2025 End: 65-24-3534Nndiytm encounter procedureChanali Saavedra DO-[facility] [place] Work Phone: Start: 06-20-2025 End: 22-55-8465Wxltzh Burt Harper DPM Work Phone: noMS CI PODIATRYStart: 06-20-2025 End: 90-17-5359Ilftfu Burt Harper DPM Work Phone: [facility] CI PODIATRYStart: 06-20-2025 End: 93-87-7687Pfljhyz encounter procedureElie Harper DPM Work Phone: [facility] CI PODIATRYComment on above:Pain due to onychomycosis of toenails of both feet (Primary Dx)Start: 06-20-2025 End: 84-78-4359kcgltzgrgwWQNIAIZG A BROWNNot AvailableStart: 06-13-2025 End: 76-49-1109trsphnauofYgqdkrp M Hoy MD Work Phone: [facility] Work Phone: Start: 06-13-2025 End: 93-71-4084Ygwwumv encounter procedureMagalie Kaufman DO-[facility] [place] Work Phone: Start: 05-15-2025 End: 14-40-9112Kkodrd flowsheetJonathan D Mary Lou DO Work Phone: [facility] NB OPHTStart: 05-15-2025 End: 50-57-6899Wiyzug flowsheetJonathan D Ivanaer DO Work Phone: [facility] NB OPHTStart: 05-15-2025 End: 21-31-1166rpijovtbbdOHRWTDXN D MARY LOUNot AvailableStart: 05-01-2025 End: 52-56-6903veofecqgsoDkqtffs M Hoy MD Work Phone: [facility] Work Phone: Start: 05-01-2025 End: 24-78-9038Qosfnmz encounter Tammy Christianson DMWZ-UZT-I-[facility] [place] Work Phone: Start: 04-04-2025 End: 15-66-8948Thrmmj flowsMarbin Harper DPM Work Phone: [facility] PODIATRYStart: 04-04-2025 End: 14-79-4338Ottyhh flowsMarbin Caraballo Brown DPM Work Phone: no[facility] PODIATRYStart: 04-04-2025 End: 54-35-5873Pprtxil encounter procedureNicsharona Harper DPM Work Phone: noMS CI PODIATRYComment on above:Pain due to onychomycosis of toenails of both feet (Primary Dx)Start: 04-04-2025 End: 33-59-9519xgtdejiszjGOTDPVKD A BROWNNot AvailableStart: 03-20-2025 End: 94-29-8682Cigtorggr encounterDevon Tocompa YONNY TURNERUEComment on above: Med RefillStart: 03-07-2025 End: 09-04-6771Mcxjqb flowsheroNicsharona Harper DPM Work Phone: [facility] PODIATRYStart: 03-07-2025 End: 32-78-0150Hdzrrq flowsheetNicholas Rashmi Brown DPM Work Phone: [facility] PODIATRYStart: 03-07-2025 End: 25-24-4420Rmygtf follow up visit related to original pxNicholas Rashmi Brown DPM Work Phone: [facility] CI PODIATRYComment on above:Acquired deformity of left toe (Primary Dx); Other polyneuropathyStart: 03-07-2025 End: 03-12-6947qvkvdnrtjjIUZLJCKJ Rashmi MEREDITHNot AvailableStart: 02-28-2025 End: 22-80-7569Psswps flowsheetNicole Mandeep DO Work Phone: [facility] BELLEVUEStart: 02-28-2025 End: 16-30-3422Aepmpd flowsheetNicole Mandeep DO Work Phone: [facility] BELLEVUEStart: 02-28-2025 End: 63-97-3365Nitwytk encounter procedureNicole Mandeep DO Work Phone: [facility] BELLEVUEComment on above:Blepharospasm (Primary Dx); 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Start: 02-28-2025 End: 85-37-8635lycmxtvjwuMOBEXF DANNERNot AvailableStart: 02-20-2025 End: 65-85-9781Svpfgz flowsheetNicholas A Brown DPM Work Phone: [facility] [place] PODStart: 02-20-2025 End: 59-28-1651Xxduvu flowsheetNicholas A Brown DPM Work Phone: [facility] [place] PODStart: 02-20-2025 End: 65-74-6056Ggvrqy follow up visit related to original pxNicholas Rashmi Brown DPM Work Phone: [facility] [place] PODComment on above:Acquired deformity of left toe (Primary Dx); Other polyneuropathyStart: 02-20-2025 End: 29-43-4360ifnbheogaaFJPUTMPG A BROWNNot AvailableStart: 02-19-2025 End: 49-45-6711VlquqpNjzplsio Sean GUZMAN BELLEVUEComment on above:Paresthesias; Spinal stenosis of lumbar region, unspecified whether neurogenic claudication presentStart: 02-13-2025 End: 52-15-5568Fpslvb follow up visit related to original pxNicholas A Brown DPM Work Phone: [facility] [place] PODComment on above:Acquired deformity of left toe (Primary Dx); Other polyneuropathyStart: 02-13-2025 End: 95-06-6823nkrffmffjqYRWDORNE A BROWNNot AvailableStart: 02-13-2025 End: 03-23-5100Yongyo flowsheetNicholas A Brown DPM Work Phone: [facility] [place] PODStart: 02-13-2025 End: 47-96-4423Nltyoo flowsheetNicholas A Brown DPM Work Phone: [facility] [place] PODStart: 02-06-2025 End: 99-76-7145zhcgouglvbYPLAITPA A BROWNNot AvailableStart: 02-06-2025 End: 93-74-9932Lddtog flowsheetNicholas A Brown DPM Work Phone: [facility] [place] PODStart: 02-06-2025 End: 73-27-3589Olgaam flowsheetNicholas A Brown DPM Work Phone: [facility] [place] PODStart: 02-06-2025 End: 46-41-5735Xinhnp follow up visit related to original pxNicholas A Brown DPM Work Phone: [facility] [place] PODComment on above:Acquired deformity of left toe (Primary Dx); Other polyneuropathyStart: 01-24-2025 End: 10-40-6086mwrtuolqpnOPVRMPFH A BROWNNot AvailableStart: 01-17-2025 End: 01-44-3194Dbainw outpatient visit 25 minutesNicholas A Brown DPM Work Phone: N[facility] CI PODIATRYComment on above:Cellulitis of left foot (Primary Dx); Acquired deformity of left toe; Foot ulcer, left, with fat layer exposed (CMS/HCC); Other polyneuropathyStart: 01-17-2025 End: 95-21-7718GoudqfUoutjchz Sean GUZMAN [facility] CLINTONComment on above: Paresthesias; Spinal stenosis of lumbar region, unspecified whether neurogenic claudication presentStart: 01-10-2025 End: 18-96-2359Zahsns flowsheetNicholas A Brown DPM Work Phone: noMS CI PODIATRYStart: 01-10-2025 End: 78-86-3652Emkcqj flowsheetNicholas A Brown DPM Work Phone: noMS CI PODIATRYStart: 01-10-2025 End: 71-81-8202Cgjyqm outpatient visit 15 minutesNicholas A Brown DPM Work Phone: noMS CI PODIATRYComment on above:Cellulitis of left foot (Primary Dx); Acquired deformity of left toe; Foot ulcer, left, with fat layer exposed (CMS/HCC); Other polyneuropathyStart: 01-10-2025 End: 11-35-9420acxmyfrgwtRZEWRRUU A BROWNNot AvailableStart: 01-02-2025 End: 85-74-6348Leehtr outpatient visit 15 minutesNicholas A Brown DPM Work Phone: noms [place] PODComment on above:Cellulitis of left foot (Primary Dx); Acquired deformity of left toeStart: 01-02-2025 End: 42-89-5368qkobpcuhsvPNMVDNZA A BROWNNot AvailableStart: 01-02-2025 End: 07-63-1750Ftwnjs flowsheetNicholas A Brown DPM Work Phone: noMS [place] PODStart: 01-02-2025 End: 40-49-9216Pckxyz flowsheetNicholas A Brown DPM Work Phone: [facility]oms [place] PODStart: 12-12-2024 End: 11-62-2286Glfior flowsTaurus Christianson CAT SCAN TECH Work Phone: aNA BELLEVUEStart: 12-12-2024 End: 48-10-8439Soevoc Ministerio Christianson CAT SCAN TECH Work Phone: aNA BELLEVUEStart: 12-12-2024 End: 06-16-1461Agnjoo outpatient visit 15 minutesGaby Christianson CAT SCAN TECH Work Phone: aNA OJHNNYEVUEComment on above:Spinal stenosis of lumbar region, unspecified whether neurogenic claudication present (Primary Dx); Degeneration of intervertebral disc of lumbar region with discogenic back pain; Facet arthritis of lumbar region; Blepharospasm; Polyneuropathy; Carpal tunnel syndrome on both sidesStart: 12-12-2024 End: 49-28-6942lzkmwuyumxNTHFS CARROLLNot AvailableStart: 11-28-2024 End: 46-90-8545Ccjfbb outpatient visit 15 minutesNew Mcclure MD Work Phone: [facility] OrthopedicsComment on above:Hx of total knee arthroplasty, left (Primary Dx); Hx of total knee arthroplasty, rightStart: 11-28-2024 End: 09-19-6347Mirkroqqep hospital visit by Kaykay Mcclure MD Work Phone: [facility] RadiologyStart: 33-24-7217pvztxqjmfsXJKRZ FOSTERAvita Ontario HospitalStart: 11-15-2024 End: 69-68-6329Cpzrjw outpatient visit 15 minutesElie Harper DPM Work Phone: NOC[facility] CI PODIATRYComment on above:Acquired deformity of left toe (Primary Dx); Pain due to onychomycosis of toenails of both feetStart: 11-15-2024 End: 81-18-4626jpbqtfgcuzBQCRFBEY A BROWNNot AvailableStart: 11-15-2024 End: 56-42-8310Rmrcqz Burt Harper DPM Work Phone: [facility] CI PODIATRYStart: 11-15-2024 End: 07-15-8142Bympbhletha Harper DPM Work Phone: noMS CI PODIATRYStart: 10-25-2024 End: 93-55-9254Ylkjgi flowsheetNicole Mandeep DO Work Phone: [facility] [place] STATE ROUTEStart: 10-25-2024 End: 24-12-8615Uhoddl flowsheetNicole Mandeep DO Work Phone: [facility] [place] ROUTEStart: 10-25-2024 End: 76-92-6160Xojrlql encounter procedureNicole Mandeep DO Work Phone: [facility] [place] STATE ROUTEComment on above: Blepharospasm (Primary Dx); 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Start: 10-25-2024 End: 55-08-9058irnlhahjdpJOFGJB DANNERNot AvailableStart: 10-24-2024 End: 40-49-1881LotulxQuzmzfn Hauler ULISES [place] STATE ROUTEComment on above: Spinal stenosis of lumbar region, unspecified whether neurogenic claudication present (Primary Dx); ParesthesiasStart: 10-23-2024 End: 43-20-4800Dcugad flowsheetChristopher Moni DO Work Phone: [facility] NE NEUROStart: 10-23-2024 End: 90-48-5716Vdgpjt flowsheetChristopher Moni DO Work Phone: [facility] NE NEUROStart: 10-23-2024 End: 42-58-7661Ouwyowi encounter procedureChristopher Moni DO Work Phone: [facility] NE NEUROComment on above:Carpal tunnel syndrome on both sides (Primary Dx); ParesthesiasStart: 10-23-2024 End: 01-18-4448kdghrzjjliIRGPIEWUIUJ HASSETTNot AvailableStart: 10-22-2024 End: 43-51-2517Qrdbyf OnlyChristopher Moni DO Work Phone: [facility] [place] STATE ROUTEComment on above: Paresthesias; Spinal stenosis of lumbar region, unspecified whether neurogenic claudication presentStart: 10-15-2024 End: 53-09-0698Zivekl flowsheetChristopher Moni DO Work Phone: [facility] ROUTEStart: 10-15-2024 End: 88-54-3122Ihwsec flowsheetChristopher Moni DO Work Phone: [facility] ROUTEStart: 10-15-2024 End: 85-63-1516Tedpnc outpatient visit 25 minutesChristopher Moni DO Work Phone: [facility] ROUTEComment on above:Paresthesias (Primary Dx); Blepharospasm; Spinal stenosis of lumbar region, unspecified whether neurogenic claudication presentStart: 10-15-2024 End: 46-56-7838pnziwnyvqvDKQXVBMFJBC HASSETTNot AvailableStart: 09-06-2024 End: 98-38-5711Tupiopn encounter procedureNicfreddyas A Brown DPM Work Phone: noms CI PODIATRYComment on above:Pain due to onychomycosis of toenails of both feet (Primary Dx); Acquired deformity of left toeStart: 09-06-2024 End: 27-36-7977Hervxv flowsheetNicholas A Brown DPM Work Phone: [facility] CI PODIATRYStart: 09-06-2024 End: 33-70-7266Zkibgo flowsheetNicholas A Brown DPM Work Phone: noms CI PODIATRYStart: 08-16-2024 End: 72-17-6518Syotit flowsheetNicholas A Brown DPM Work Phone: noms CI PODIATRYStart: 08-16-2024 End: 05-79-7746Jbyiyi flowsheetNicholas A Brown DPM Work Phone: [facility] CI PODIATRYStart: 08-16-2024 End: 77-03-0359Cgjrih outpatient visit 15 minutesNicholas A Brown DPM Work Phone: noms CI PODIATRYComment on above:Abscess of toe, right (Primary Dx); Acquired deformity of left toeStart: 08-02-2024 End: 72-80-2484Jgysqm flowsheetNicholas A Brown DPM Work Phone: [facility] CI PODIATRYStart: 08-02-2024 End: 08-15-9027Gzcynw flowsheetNicholas A Brown DPM Work Phone: [facility] CI PODIATRYStart: 08-02-2024 End: 62-59-5680Xvylmv outpatient visit 15 minutesNicholas A Brown DPM Work Phone: [facility] CI PODIATRYComment on above:Onychocryptosis (Primary Dx); Toe pain, right; Abscess of toe, right; Acquired deformity of left toeStart: 07-30-2024 End: 56-12-9108Tqwskbngv encounterNicholas A Brown DPM Work Phone: [facility] CI PODIATRYComment on above:RxStart: 07-26-2024 End: 22-36-8794Ablxlc flowsheetNicole Mandeep DO Work Phone: [facility] [place] ROUTEStart: 07-26-2024 End: 05-47-9173Qvmjas flowsheetNicole Mandeep DO Work Phone: [facility] [place] ROUTEStart: 07-26-2024 End: 49-56-0083Fphudqg encounter procedureNicole Mandeep DO Work Phone: [facility] [place] STATE ROUTEComment on above: Blepharospasm (Primary Dx); 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Start: 2024 End: 14-67-5700RnqhlvUkcynwwm Riedy MANOMS NEUROLOGYComment on above: Polyneuropathy (Primary Dx); Spinal stenosis of lumbar region, unspecified whether neurogenic claudication present; Degenerative disc disease, lumbarStart: 07-18-2024 End: 39-82-8469Upejym outpatient visit 15 minutesNicholas A Brown DPM Work Phone: [facility] [place] PODComment on above:Onychocryptosis (Primary Dx); Toe pain, right; Abscess of toe, rightStart: 07-16-2024 End: 04-08-4986Bizqsl Ministerio Christianson CAT SCAN TECH Work Phone: [facility] [place] [facility] ROUTEStart: 07-16-2024 End: 28-46-5263Nuwfxl Ministerio Christianson CAT SCAN TECH Work Phone: [facility] ROUTEStart: 07-16-2024 End: 30-45-8035Vjzfiu outpatient visit 15 minutesBonnienubia Sammy CAT SCAN TECH Work Phone: noms [facility] ROUTEComment on above:Spinal stenosis of lumbar region, unspecified whether neurogenic claudication present (Primary Dx); Degenerative disc disease, lumbar; Facet arthritis of lumbar region; Blepharospasm; Polyneuropathy; ParesthesiasStart: 06-28-2024 End: 13-10-5945Ztrcht Burt Harper DPM Work Phone: noms CI PODIATRYStart: 06-28-2024 End: 02-09-1703Juzort Burt Harper DPM Work Phone: noms CI PODIATRYStart: 06-28-2024 End: 35-91-9788Fccenq outpatient visit 10 minutesElie Harper DPM Work Phone: noms CI PODIATRYComment on above:Acquired deformity of left toe (Primary Dx); Onychomycosis; Toe pain, bilateralStart: 05-31-2024 End: 17-54-5919Ewqqqf outpatient visit 15 Alice Mcclure MD Work Phone: [facility] OrthopedicsComment on above:Pain in both knees, unspecified chronicity (Primary Dx)Start: 05-31-2024 End: 28-12-4859Dsisgzqdzj hospital visit by Kaykay Mcclure MD Work Phone: [facility] RadiologyStart: 59-53-1697oezrmciwlcYKGSQ FOSTERAvita Ontario HospitalStart: 04-19-2024 End: 72-47-1688Zljmys outpatient visit 25 Alice Mcclure MD Work Phone: [facility] OrthopedicsComment on above:Pain in both knees, unspecified chronicity (Primary Dx)Start: 04-19-2024 End: 14-84-6996Edbiendbli hospital visit by Kaykay Mcclure MD Work Phone: [facility] RadiologyStart: 84-23-5021kdmimjylxcMSEXH [facility] HospitalStart: 03-22-2024 End: 35-32-5614Pxpbjl outpatient visit 15 Alice Mcclure MD Work Phone: [facility] OrthopedicsComment on above:Pain in both knees, unspecified chronicity (Primary Dx)Start: 03-22-2024 End: 16-60-3873Ycsdhdxqia hospital visit by Kaykay Mcclure MD Work Phone: [facility] RadiologyStart: 22-20-3966lqdtpasxrgBBUVD FOSTERAvita Ontario HospitalStart: 02-23-2024 End: 17-75-5548Qgbqos follow up visit related to original Delaney Green APRN-METAL CAN INSPECTOR Work Phone: [facility] OrthopedicsComment on above:Hx of total knee arthroplasty, left (Primary Dx)Start: 02-23-2024 End: 10-34-5840Qthntragsz hospital visit by Marisol Green APRN-METAL CAN INSPECTOR Work Phone: [facility] RadiologyStart: 11-45-2771qgjydamfxu YULISA Tristan [facility]: 01-12-2024 End: 37-18-0206Pzajmd outpatient visit 25 Alice Mcclure MD Work Phone: [facility] OrthopedicsComment on above:Right knee pain, unspecified chronicity (Primary Dx)Start: 01-12-2024 End: 51-36-5700Fyftaxgvxc hospital visit by Kaykay Mcclure MD Work Phone: [facility] RadiologyStart: 61-29-5053ycpmkzwhbwXYBZO [facility] HospitalStart: 12-22-2023 End: 55-02-6157Aucoukybzk hospital visit by Marisol SCHWARTZ Work Phone: [facility] RadiologyStart: 32-82-4431ncjxfibfcfmatthew Tristan [facility] Hospitaltart: 11-03-2023 End: 73-22-9886Bkufqhdpl to Emma Mcclure MD Work Phone: [facility] Pre AdmissionComment on above:Preop testing (Primary Dx); Abnormal finding of blood chemistry, unspecified; Abnormal coagulation profileStart: 11-03-2023 End: 94-95-7407Lqattnb encounter Melani Mcclure MD Work Phone: [facility] SystemStart: 09-01-2023 End: 41-05-1179Rcnvgu outpatient visit 40 Alice Mcclure MD Work Phone: [facility] OrthopedicsComment on above:Hx of total knee arthroplasty, right (Primary Dx); Hx of total knee arthroplasty, leftStart: 09-01-2023 End: 33-88-4186Fxemymbjzo hospital visit by Kaykay Mcclure MD Work Phone: [facility] RadiologyStart: 05-19-2023 End: 58-22-9560Oeidov follow up visit related to original Delaney Green APRN-METAL CAN INSPECTOR Work Phone: [facility] OrthopedicsComment on above:Hx of total knee arthroplasty, right (Primary Dx)Start: 05-19-2023 End: 56-03-6952Msuasejmxk hospital visit by Marisol SCHWARTZ Work Phone: [facility] RadiologyStart: 03-18-2023 End: 73-55-9857Wbezilzipb hospital visit by Kaykay Mcclure MD Work Phone: [facility] RadiologyStart: 02-08-2023 End: 72-57-7144lzhieinrquAD DOUGLAS HOY .Facility:W1Vhhqr: 11-03-2022 End: 10-81-4263iktynfsgtiUO DARREN MONACOFacility:B4Bebfl: 10-18-2022 End: 76-08-9981hjsayahglsXO YULISA HOY .Facility:D9Aznai: 08-31-2022 End: 18-40-4568jwzcoljwqaJI JACK LANDAVERDE .Facility:W2Irngt: 08-27-2022 End: 39-45-1367hxdfaweornBL YULISA HOY .Facility:A3Dkqyp: 07-30-2022 End: 97-54-9823lqacjdrciaUP DARREN JACINDAFacility:U5Nhnwn: 04-20-2022 End: 58-99-3243lngxdmnltqYL DARREN JACINDAFacility:J8Qdffb: 04-20-2022 End: 23-95-2835qfpmmpjjrtYP YULISA NESSY .Facility:P7Jikyx: 08-31-2021 End: 68-94-6045feqdnznzycYclmtf Elskens Other [facility] [employer] Other start: 22-32-2810Pjsdcb outpatient new 30 minutes Stephen [facility]aMa[facility] NeurosurgeryStart: 05-07-2021 End: 55-84-0644dipjhirtubNtn ReeseFacility:[facility] Start: 03-11-2021 End: 59-64-0686Koerhh outpatient visit 15 minutesNew Mcclure MD Work Phone: [facility] OrthopedicsComment on above:Left knee pain, unspecified chronicity (Primary Dx); Right knee pain, unspecified chronicityStart: 11-19-2020 End: 03-46-5487Mpbvgv outpatient visit 15 Alice Mcclure Work Phone: [facility] OrthopedicsComment on above:Hx of total knee arthroplasty, left (Primary Dx); Pain in prosthetic joint, initial encounterStart: 11-19-2020 End: 69-38-3625Ccxtbcvzjw hospital visit by Kaykay Mcclure Work Phone: [facility] RadiologyStart: 11-21-2019 End: 47-30-7583Anjyfk outpatient visit 15 minutesNew Mcclure Work Phone: [facility] OrthopedicsComment on above:History of total knee arthroplasty, left (Primary Dx); Arthritis of right kneeStart: 11-21-2019 End: 82-02-3022Lahcvbqtzu hospital visit by [employer] Phone: [email or web address] RadiologyStart: 04-18-2019 End: 69-36-1592Klxskf outpatient visit 15 minutesImmedia Phone: [facility] OrthopedicsComment on above:Right hip pain (Primary Dx); Left knee pain, unspecified chronicity; Right knee pain, unspecified chronicityStart: 04-18-2019 End: 83-39-6617Glvgppv encounter procedureSFry Multimedia Phone: [email or web address] RadiologyStart: 03-01-2019 End: 47-60-2134Xndxfqukqo hospital visit by [employer] Phone: [email or web address] RadiologyStart: 03-01-2019 End: 45-21-3862Sjftvp encounterProvider OsumychartSelect Medical Specialty Hospital - Trumbulltart: 03-01-2019 End: 98-77-7704Wovybg outpatient visit 15 minutesImmedia Phone: [facility] OrthopedicsComment on above:History of total knee arthroplasty, left (Primary Dx); Right hip painStart: 03-01-2019 End: 81-86-9164Pmdtbdr encounter Proficiency Phone: [email or web address] RadiologyStart: 02-23-2019 End: 41-25-2486Sktdofz encounter procedureOther [facility]tart: 02-09-2019 End: 43-02-0541Rtpocwuhh encounterAmanda DreherAvita [facility] OrthopedicsComment on above:Leg SwellingStart: 01-05-2019 End: 75-95-7020Unluilk encounter procedureOther [facility] Hospitaltart: 01-03-2019 End: 31-70-6190Udognn outpatient visit 15 minutesImmedia Phone: aviMultifonds [facility] [place] OrthopedicsComment on above:History of total knee arthroplasty, left (Primary Dx)Start: 12-14-2018 End: 91-87-3815Rwdmsab encounter procedureChashelbi Mosquedaey Work Phone: [facility] RadiologyStart: 12-14-2018 End: 44-68-2415Ltchrb follow up visit related to original Delaney Green Work Phone: [facility] OrthopedicsComment on above:Hx of total knee arthroplasty, left (Primary Dx)Start: 12-06-2018 End: 22-04-2956Onzwgbyst encounterAmanda DreWest [facility] Center OrthopedicsComment on above:Skin ProblemStart: 11-30-2018 End: 40-06-8986Oawbjte encounter procedureOther OtherNOTES/RESULTSStart: 11-21-2018 End: 23-72-2773Ytgdtqgnct and management of inpatientSErlanger North Hospital Work Phone: [facility] Med SurgComment on above:Pain in left kneeStart: 10-23-2018 End: 68-75-1252Zmtvzug encounter procedureScojerad Mcclure Work Phone: [facility] Pre AdmissionComment on above:Pre-op exam (Primary Dx)Start: 09-15-2018 End: 61-47-8653Mhklzlz encounter procedureRichard Velasquez [facility] OrthopedicsStart: 94-84-6291GhugdgwukwXsjt A WoodFacility:MarcusStart: 96-67-6932KnpmgpbsxdCdlw A WoodFacility:MarcusStart: 07-18-2017 End: 81-14-2494Glojarzsmq and management of inpatientSPearl River County Hospitaltart: 80-37-5519JrvivkhhcnIMWNRJoint Township District [facility] Hospital Procedures DateProcedureProcedure DetailPerforming ClinicianStart: 05-15-2025 End: 77-72-8312Cbfvrz field xm uni/bi w/interp extended examJodwain Barreto DO Work Phone: Start: 05-15-2025 End: 96-59-8840Nenep medical xm&eval comprhnsv estab pt 1/>Intermediate stage nonexudative age-related macular degeneration of both eyesRamon Barreto DO Work Phone: comment on above:Intermediate stage nonexudative age- related macular degeneration of both eyes (Primary Dx); Long-term use of hydroxychloroquineStart: 91-78-3829Ovfsj foot complete minimum 3 viewsNicholas A Brown DPM Work Phone: Start: 10-23-2024 End: 10-50-4950Vwcfcc emg ea extremty w/paraspinl area completeChristopher Moni DO Work Phone: Start: 23-17-4430Klhhwe field xm uni/bi w/interp extended examJodwain Barreto DO Work Phone: Start: 18-48-5820Rbdoyanqdtse ophthalmic imaging retinaRamon Barreto DO Work Phone: Start: 07-31-2024 End: 76-93-2907Zqmva medical xm&eval comprhnsv estab pt 1/>Long-term use of hydroxychloroquineRamon Barreto DO Work Phone: comment on above:Long-term use of hydroxychloroquine (Primary Dx); Intermediate stage nonexudative age-related macular degeneration of both eyes; Dry eyes; Left posterior capsular opacification; Blepharitis of upper and lower eyelids of both eyes, unspecified typeStart: 27-49-6122Sue routine ecg w/least 12 lds w/i&rSebenezer Mcclure MD Work Phone: Start: 22-96-1892Hokft typing serologic aboNew Mcclure MD Work Phone: Start: 14-21-1845Hbqwhofr blood count with white cell differential, automatedNew Mcclure MD Work Phone: Start: 70-51-9459Njbektcfjxzhg metabolic panelSebenezer Mcclure MD Work Phone: Start: 32-36-0683Ina prsmptv pthgnc organism scrn w/colony estimjSebenezer Mcclure MD Work Phone: Start: 83-83-1608Snwihhtiuw, reagent strip without microscopyNew Mcclure MD Work Phone: Start: 85-19-8205LfprukmynwfIkiqysfb Brown DPM Work Phone: Start: 22-88-7826Vgcggffxunmpbe aspir&/inj major jt/bursa w/o Miguel Mcclure MD Work Phone: Start: 78-45-4509Llpbk-articular injectionSebenezer Mcclure Work Phone: Start: 14-99-1824Efeqv-articular injectionSebenezer Mcclure Work Phone: Start: 59-65-5564Iyzlm-articular injectionSebenezer Mcclure Work Phone: Start: 11-24-2018 End: 74-48-8599MXP, EDIF, PLATELETRajinder Green Work Phone: Start: 11-23-2018 End: 57-90-9218Taptu count complete auto&auto difrntl wbcRajinder Green Work Phone: Start: 11-22-2018 End: 92-56-7209Zmlih count complete auto&auto difrntl wbcRajinder Green Work Phone: Start: 11-21-2018 End: 49-33-2760K-ray of left kneeChashelbi Green Work Phone: Start: 11-21-2018 End: 03-86-9641Nnub count misc body fluids w/differential countSebenezer Mcclure Work Phone: Start: 11-21-2018 End: 92-25-7261Zut bact melissa aerobic isol xcpt ur blood/stoolNew Mcclure Work Phone: Start: 11-21-2018 End: 87-51-4893Jtfmbvs bacterial any source anaerobic iso&idSebenezer Mcclure Work Phone: Start: 11-21-2018 End: 66-97-9599Kvswovc fngi mold/yeast prsmptv oth xcpt bloodWacullen Mcclure Work Phone: Start: 11-21-2018 End: 98-68-3426Xxclmuu tubercle/oth acid-fast bacilli any isolNew Mcclure Work Phone: Start: 11-21-2018 End: 42-39-0068MMCNZQ ABO/RH (D) TYPINGNew Mcclure Work Phone: Start: 11-21-2018 End: 24-92-8393Svgpat nuc acid amp prb cult/isolate ea Sylvia Green Work Phone: Start: 10-23-2018 End: 72-96-9107Lmuhemsc ECGNew Mcclure Work Phone: Plan of Treatment DateCare ActivityDetailAuthorStart: 02-19-2026 End: 93-23-7708Jdpslwr encounter /15/2026 9:00 AM EDT Office Visit [facility] [address] [place] [address] Ramon Barreto, [address] [place] [address] [facility] EyeStart: 11-27-2025 End: 28-66-2793Agpzpjs encounter xkgaprjka79/21/2026 10:30 AM EST Office Visit [facility] [address] [place] [address] New Mcclure MD [address] [place] [address] [facility] OrthopedicsStart: 09-05-2025 End: 74-00-1410Uaygbcr encounter procedureNOMS CI PODIATRYComment on above:Other polyneuropathy (Primary Dx); Pain due to onychomycosis of toenails of both feetStart: 34-18-7803CKFMR-19 Vaccine ( season)COVID-19 Vaccine ( season)[facility] Start: 66-23-2965Lpfdkukwe vaccinationInfluenza Vaccine (#1)[facility] Start: 06-20-2025 End: 18-43-9486Xrxrmlq encounter ztfqkbfyj01/14/2025 8:30 AM EDT Procedure Visit [facility] [address] [facility] [address] [place] [address] Elie Harper, DPM [address] [address] Pain due to onychomycosis of toenails of both feet (Primary Dx)[facility] CI PODIATRYComment on above:Pain due to onychomycosis of toenails of both feet (Primary Dx)Start: 06-13-2025 End: 22-16-4396Wihilez encounter yxbawwfcz29/07/2025 9:50 AM EDT Procedure Visit [facility] [address] [facility] [address] [place] [address] Elie Harper, DPM [address] [address] [facility] CI PODIATRYStart: 05-15-2025 End: 52-54-9835Mbokvcc encounter vxlnmiehl24/09/2025 9:00 AM EDT Office Visit [facility] [address] [place] [address] Ramon Barreto, DO [address] [place] [address] ArrivedNOMS NB OPHTComment on above:ArrivedStart: 05-03-2025 End: 38-05-5632Ehsqvnp encounter uefksblog07/27/2025 10:00 AM EDT Office Visit [facility] [address] [place] [address] Ramon Barreto, DO [address] [place] [address] [facility] NB OPHTStart: 05-01-2025 End: 47-93-0714Cdsirrn encounter kjmfsqvov40/25/2025 9:40 AM EDT Office Visit [facility] KRISHNA [address] [place] [address] Gaby Christianson NP [address] [place] [address] CHAR WATTStart: 04-08-2025 End: 77-71-1568Pllogbp encounter cvnkuvini96/02/2025 9:20 AM EDT Office Visit CHAR HANSEN [address] [address] [place] [address] Gaby Christianson NP [address] [place] [address] CHAR ALONSOYStart: 04-04-2025 End: 72-70-0125Bealbkg encounter procedureNOMS CI PODIATRYComment on above:Pain due to onychomycosis of toenails of both feet (Primary Dx)Start: 03-14-2025 End: 00-80-8319Fuoshzx encounter ufbepuscf60/08/2025 11:00 AM EDT Procedure Visit [facility] KRISHNA [address] [place] [address] Magalie Kaufman DO [address] [place] [address] CHAR AUDREYBRIANtart: 03-07-2025 End: 18-27-5432Tlvawum encounter procedureNOMS CI PODIATRYComment on above: Acquired deformity of left toe (Primary Dx); Other polyneuropathyStart: 02-28-2025 End: 11-76-1634Ddvjuee encounter procedureCHAR VENTURAUEComment on above:Arrived Start: 02-20-2025 End: 73-37-8832Kxtsjqq encounter procedureNOMS [place] PODComment on above:Acquired deformity of left toe (Primary Dx); Other polyneuropathyStart: 02-13-2025 End: 87-14-6338Dchdjel encounter sykpvhptx71/09/2025 3:40 PM EDT Office Visit [facility] [place] [facility] [address] [facility] [place] [address] Elie Harper DPM [address] [address] Acquired deformity of left toe (Primary Dx); Other polyneuropathyNOMS [place] PODComment on above:Acquired deformity of left toe (Primary Dx); Other polyneuropathyStart: 01-31-2025 End: 11-08-2512Xegcjbk encounter oibamnoyl67/27/2025 10:30 AM EDT Procedure Visit [facility] [place] [address] [place] [address] Magalie Kaufman [address] [place] [address] CHAR JOHNNYUEStart: 01-24-2025 End: 85-62-2557Xytpcsl encounter wyfmaqsrn00/20/2025 2:40 PM EDT Procedure Visit [facility] [address] [place] [address] Elie Harper DPM [address] [address] [facility] CI PODIATRYStart: 01-24-2025 End: 33-29-7403Kqozdaq encounter procedureNOMS KRISHNA STATE ROUTEStart: 01-17-2025 End: 60-86-3722Vnvduua encounter anizvgmzs14/13/2025 10:00 AM EDT Office Visit [facility] [address] [place] [address] Elie Harper DPM [address] [address] [facility] CI PODIATRYStart: 01-10-2025 End: [id number] encounter jgmexdpud54/06/2025 10:20 AM EST Office Visit [facility] [address] [facility] [address] [place] [address] Elie Harper DPM [address] [address] Cellulitis of left foot (Primary Dx); Acquired deformity of left toeNOMS CI PODIATRYComment on above:Cellulitis of left foot (Primary Dx); Acquired deformity of left toeStart: 01-02-2025 End: 50-54-3294Pycpulm encounter ojlncglyj01/26/2025 3:00 PM EST Office Visit [facility] [address] [place] [address] Elie Harper, DPM [address] [address] ArrivedNOMS SC PODComment on above:ArrivedStart: 12-12-2024 End: 32-31-6844Nalwwca encounter procedureNOMS ERENDIRA STATE ROUTEComment on above:ArrivedStart: 19-82-1341Nuanzypdv [Moles/volume] in Serum or Plasma POTASSIUMMarietta Osteopathic Clinic SystemStart: 11-28-2024 End: 50-61-1583Nilvpgr encounter enudkabga06/22/2025 11:10 AM EST Office Visit [facility] [address] [place] [address] New Mcclure MD [address] [place] [address] [facility] OrthopedicsStart: 11-15-2024 End: 26-95-7462Wklzgfb encounter procedureNOMS CI PODIATRYComment on above:Pain due to onychomycosis of toenails of both feet (Primary Dx)Start: 11-03-2024 Potassium [Moles/volume] in Serum or PlasmaPOTASSIUMMarietta Osteopathic Clinic SystemStart: 10-25-2024 End: 04-41-8393Amtfdrx encounter procedureNOMS ERENDIRA STATE ROUTEComment on above:ArrivedStart: 10-23-2024 End: 90-37-8477Jisndfd encounter procedureNOMS NE NEUROComment on above:Arrived Start: 10-15-2024 End: 32-69-5251KPV 1 ExtremeityEMG 1 Extremeity Neurology Routine Paresthesias Expected: 10/15/2024, Expires: 10/15/2025[facility] Work Phone: comment on above:Expected: 10/15/2024, Expires: 10/15/2025Start: 10-15-2024 End: 42-43-4906Phzaziq encounter procedureNOMS [facility] ROUTEComment on above:ArrivedStart: 09-06-2024 End: 09-93-4834Xysrjpr encounter procedureNOMS CI PODIATRYComment on above:Pain due to onychomycosis of toenails of both feet (Primary Dx); Acquired deformity of left toeStart: 08-16-2024 End: 22-99-2318Xhxzexn encounter procedureNOMS CI PODIATRYComment on above: Abscess of toe, right (Primary Dx); Acquired deformity of left toeStart: 08-02-2024 End: 43-87-4609Wejuduh encounter procedureNOMS CI PODIATRYComment on above: Onychocryptosis (Primary Dx); Toe pain, right; Abscess of toe, right; Acquired deformity of left toeStart: 08-01-2024 End: 71-80-1538Xleqgsu encounter zqxevlmeb17/25/2024 2:00 PM EDT Office Visit [facility] [address] [place] [phone] Audrey Gunter PA [address] [place] [phone] [facility] SWS DERMStart: 07-31-2024 End: 89-32-4091Plrsmbu encounter awykrkacx19/24/2024 9:45 AM EDT Office Visit [facility] [address] [place] [address] Ramon Barreto DO [address] [place] [address] NOMS PELON OPHTStart: 07-26-2024 End: 60-46-3991Bvubiuo encounter procedureNOMS [facility] ROUTEComment on above:ArrivedStart: 07-16-2024 End: 56-55-8890Mnamgmo encounter procedureNOMS [facility] ROUTEComment on above:Spinal stenosis of lumbar region, unspecified whether neurogenic claudication present (Primary Dx); Degenerative disc disease, lumbar; Facet arthritis of lumbar region; Blepharospasm; Polyneuropathy; ParesthesiasStart: 98-62-4973Rndwhiifm vaccinationINFLUENZA VACCINE (#1)[facility] SystemStart: 06-28-2024 End: 92-59-9595Zbzwsot encounter mdlvwykar20/22/2024 2:00 PM EDT Procedure Visit [facility] [address] [facility] [address] [place] [address] Elie Harper, DPKeri 3006 [facility] 5 [place] [address] Acquired deformity of left toe (Primary Dx); Onychomycosis; Toe pain, bilateralNOMS CI PODIATRYComment on above:Acquired deformity of left toe (Primary Dx); Onychomycosis; Toe pain, bilateralStart: 05-31-2024 End: 77-03-0210Hcyriel encounter vfoqqrske67/25/2024 9:30 AM EDT Office Visit [facility] [address] [place] [address] New Mcclure MD [address] [place] [address] [facility] OrthopedicsStart: 71-94-5099Zlycrhjvp [Moles/volume] in Serum or PlasmaPOTASSIUMMarietta Osteopathic Clinic SystemStart: 04-25-2024 End: 12-63-4842Fsibcyi encounter ioihjkthh81/19/2024 11:40 AM EDT Office Visit [facility] [address] [place] [address] Rajinder Green, BATCH AND FURNACE MANAGER-METAL CAN INSPECTOR [address] [place] [address] [facility] OrthopedicsStart: 04-19-2024 End: 50-04-5303Ezzbxif encounter lerygmkon35/13/2024 10:00 AM EDT Office Visit [facility] [address] [place] [address], [place] [address] New Mcclure MD [address] [facility] [place] [address] [facility] OrthopedicsStart: 03-22-2024 End: 87-93-7172Syiwdyl encounter szeoqtyre87/16/2024 3:30 PM EDT Office Visit [facility] [address] [place] [address], [place] [address] New Mcclure MD [address] [place] [address] [facility]opedicsStart: 02-23-2024 End: 43-70-5190Mfxtsxu encounter ivmstalao40/18/2024 11:00 AM EDT Office Visit [facility] [address] [place] [address], [place] [address] Rajinder Green, BATCH AND FURNACE MANAGER-METAL CAN INSPECTOR [address] [place] [address] [facility] OrthopedicsStart: 11-29-2023 End: 02-94-0091Iwarxxzmxm and management of [facility] PeriopComment on above:Failed total left knee replacement, initial encounterREVISION ARTHROPLASTY KNEEStart: 11-29-2023 End: 44-18-7299Irao tot knee arthrp fem&entire tibial componeREVISION ARTHROPLASTY KNEE Failed total left knee replacement, initial encounter 11/29/2023 10:00 AM ESTAVI ONT ORStart: 11-03-2023 End: 71-87-5348QBXVLJU TO TRANSFUSE RED BLOOD CELLSPREPARE TO TRANSFUSE RED BLOOD CELLS Blood Bank Routine Preop testing Expected: 11/03/2023, Expires: 12/05/2023[facility] Work Phone: Comment on above:Expected: 11/03/2023, Expires: 12/05/2023Start: 09-01-2023 End: 31-78-2985Vdzswen encounter wvaetmqfe72/26/2023 1:00 PM EDT Office Visit [facility] [address] [facility] [place] [address] New Mcclure MD [address] [place] [address], [place] [address] [facility] OrthopedicsStart: 04-22-7882Ctpkgquvz for malignant neoplasm of breastNOMS HealthcareStart: 15-87-7620KDMPA-19 VACCINE ( season)COVID-19 VACCINE ( season)[facility] SystemStart: 62-03-0698Mbwfejlju vaccinationINFLUENZA VACCINE (#1)[facility] Systemtart: 04-14-2023 End: 26-40-7408bvwulylhkg42/08/2023 Pre-Operative Nurse Assessment Internal MedicineSaint [facility] Hospital Pre AdmissionStart: 16-99-2696ULWNQ-19 VACCINE (5 - Pfizer series)COVID-19 VACCINE (5 - Pfizer series)[facility] SystemStart: 07-08-2021 Influenza vaccinationINFLUENZA VACCINE (Season Ended)[facility] Systemtart: 11-19-2020 End: 80-76-4372Oegvsn Visit11/19/2020 Office Visit Orthopaedics New Mcclure MD [address] [place] [address] [phone] [facility] OrthopedicsStart: 12-70-1232Lmqznpxnz molar [facility] Work Phone: Start: 24-06-4579Fnwrxvoic molar [facility] Work Phone: Start: 11-22-2019 End: 24-26-0989Iiguhx Visit11/22/2019 Office Visit Orthopaedics New Mcclure MD [address] [place] [address], [place] [address] [phone] [facility] OrthopedicsStart: 98-77-8949Psysfmumx molar concPOTASSIUMMarietta Osteopathic Clinic SystemStart: 57-21-7317Mdudjtztpbdk vaccinationPNEUMOCOCCAL VACCINE SERIES (2 of 2 - PPSV23 or PCV20)[facility] SystemStart: 62-97-7314Rexlariijnjr Vaccine: 65+ Years (2 of 2 - PPSV23 or PCV20)Pneumococcal Vaccine: 65+ Years (2 of 2 - PPSV23 or PCV20)[facility] HealthcareStart: 53-09-9985Ycicrwqvz vaccinationPARKVIEW HEALTHStart: 04-18-2019 End: 12-01-6290Aawiqk Visit04/18/2019 Office Visit Orthopaedics New Mcclure MD [address] [place] [address] [phone] [facility]opedicsStart: 03-01-2019 End: 37-01-5211Uajbvb VisitSaint James Hospital OrthopedicsComment on above:Arrived History of total knee arthroplasty, left (Primary Dx)Start: 02-23-2019 End: 99-34-1024J-ray of left kneeXR KNEE LEFT 2 VIEWS Imaging Routine History of total knee arthroplasty, left Expected: 02/23/2019,Expires: 03/23/2019PARKVIEW HEALTHComment on above:Expected: 02/23/2019, Expires: 03/23/2019Start: 01-03-2019 End: 19-52-8251Cltlgfhprp55/27/2019 Office Visit Orthopaedics New Mcclure MD [address] [place] [address] [facility] OrthopedicsStart: 12-28-2018 End: 11-75-5511L-ray of left kneeXR KNEE LEFT 2 VIEWS Imaging Routine History of total knee arthroplasty, left Expected: 12/28/2018,Expires: 01/25/2019[facility] HEALTHComment on above:Expected: 12/28/2018, Expires: 01/25/2019Start: 12-14-2018 End: 98-75-0826ZtraeqiwdiTypmd Health RadiologyStart: 06-40-8617Lrvomolzip 11/21/2018 Procedure PassSaint James Hospital PeriopStart: 75-57-4846Cvxtyqmmb EncounterSaint James Hospital PeriopComment on above:REVISION ARTHROPLASTY KNEE - extensor mech reconstruction - leftExtensor mechanism malalignmentStart: 10-23-2018 End: 08-04-1157Vuvamiawoo95/17/2018 Pre-Operative Nurse Assessment Internal MedicineSaint James Hospital Pre AdmissionStart: 88-21-0191Mgibnam of potassium level (finding)[facility]OTASSIUMHigh[facility] Work Phone: Start: 87-67-0631Ityqqefepbeb vaccinationMarietta Osteopathic Clinic SystemStart: 21-88-2134Diuhnnlgi vaccinationINFLUENZA VACCINE (#1)[facility] Work Phone: Start: 02-74-8639BEP VACCINE (1 - 1-dose 60+ series) RSV VACCINE (1 - 1-dose 60+ series)[facility] SystemStart: 2003 [facility]oscopyHigh[facility] Work Phone: Start: 68-92-5355Ldtfnca mass concCOLON CANCER SCREENING [facility] Work Phone: Start: 48-70-3611Hzbbgk vaccine hzv live for subcutaneous useZOSTER (SHINGLES) VACCINE (1 of 2)[facility] SystemStart: 99-78-0920Qmpufegws for malignant neoplasm of colonCOLORECTAL CANCER SCREENING DISCUSSIONMarietta Osteopathic Clinic SystemStart: 33-46-3919Qdhcdgj lipid profileLIPID SCREENINGHighland District Hospital Work Phone: Start: 10-65-9412Kxxcm panelLIPID SCREENINGMarietta Osteopathic Clinic SystemStart: 30-08-1532Miontbo mass concMAMMOGRAM SCREENING DISCUSSION [facility] Work Phone: Start: 54-33-6489Ocyttozwh for malignant neoplasm of breastMAMMOGRAM SCREENING DISCUSSIONMarietta Osteopathic Clinic SystemStart: 1993 Screening mammographyMAMMOGRAM SCREENING [facility] Work Phone: Start: 03-49-4765Ogyejzoal for malignant neoplasm of cervixAviKettering Health – Soin Medical Centertart: 10-77-5840Jrxaa diphtheria, tetanus and acellular pertussis (DTaP) vaccinationTDAP (ADULT)[facility] Systemtart: 33-54-3706Iikshkz vaccinationMercy Health Clerm[facility] Hospital Work Phone: Start: 11-15-9824SKSYN-19 VACCINE (1)COVID-19 VACCINE (1)[facility] Systemtart: 51-12-4011CUoF/Tdap/Td Vaccines (1 - Tdap) DTaP/Tdap/Td Vaccines (1 - Tdap)[facility] HealthcareStart: 12-34-2109Adajieczh C screeningHEPATITIS C VIRUS SCREENINGAdena Health Systemtart: 1955 Screening for malignant neoplasm of colonNOMS HealthcareStart: 83-24-2508Rwxkphb vaccinationTETANCleveland Clinictart: 1955 End: 37-71-3413Mpidktcxe C antibody, confirmatory testHEPATITIS C VIRUS SCREENINGHighland District Hospital Work Phone: Start: 1955 End: 78-25-4189Ddaeyzyoo for osteoporosisDEXA SCAN DISCUSSIONPremier Health [facility] ACID FAST [facility] Work Phone: Comment on above:ONE TIME for 1 Occurrences starting 11/21/2018ANAEROBE [facility] Work Phone: Comment on above:ONE TIME for 1 Occurrences starting 11/21/2018BACTERIAL CULTURE AND DIRECT SMEAR, LESION, TISSUE, DEVICEBACTERIAL CULTURE AND DIRECT SMEAR, LESION, TISSUE, DEVICE Routine Extensor mechanism malalignment ONE TIME for 1 Occurrences starting 11/21/2018[facility] Work Phone: Comment on above:ONE TIME for 1 Occurrences starting 11/21/2018Basic metabolic 2000 panel - Serum or PlasmaBASIC METABOLIC PANEL Routine Pre-op exam Ordered: 10/23/2018[facility] Work Phone: Comment on above:Ordered: 10/23/2018BODY FLUID CULTURE AND DIRECT SMEARBODY FLUID CULTURE AND DIRECT SMEAR Routine 11/21/2018 11:[address] [facility] Work Phone: CBC, EDIF, PLATELETCBC, EDIF, PLATELET Routine Pre-op exam Ordered: 10/23/2018[facility] Work Phone: Comment on above:Ordered: 10/23/2018Electromyography [facility] Work Phone: Comment on above:ONE TIME for 1 Occurrences starting 11/21/2018Hemoglobin A1c/Hemoglobin.total mass fraction (Bld)HEMOGLOBIN A1C Routine Pre-op exam Ordered: 10/23/2018[facility] Work Phone: Comment on above:Ordered: 10/23/2018LARGE JOINT INJECTION: R kneeLARGE JOINT INJECTION: R knee Procedures Routine Right knee pain, unspecified chronicity 04/18/20194:00 PM EDTAVITA HEALTHMR Lumbar spine WO [facility] CenterPROTIME-INRPROTIME-INR STAT Pre-op exam Ordered: 10/23/2018[facility] Work Phone: Comment on above:Ordered: 10/23/2018Radiography for bone length studiesXR BONE LENGTH STUDY Imaging Routine Hx of total knee arthroplasty, right 09/01/2023 12:48 PM EDTAvita Health SystemRadiography for bone length studiesXR BONE LENGTH STUDY Imaging Routine Hx of total knee arthroplasty, left Ordered: 4[facility] Health SystemComment on above: Ordered: 4Radiography of hipXR HIP WITH PELVIS RIGHT Imaging Routine Right hip pain 03/01/2019 2:59 PM EDTAVITA HEALTHSCREEN: MRSA ONLY, NARES (ISOLATION SCREEN)SCREEN: MRSA ONLY, NARES (ISOLATION SCREEN) Routine Pre-op exam Ordered: 10/23/2018[facility] Work Phone: Comment on above:Ordered: 10/23/2018Standard ECGECG Routine Pre-op exam 10/23/2018 8:[address] [facility] Work Phone: TISSUE CULTURETISSUE CULTURE Routine 11/21/2018 11:[address] [facility] Work Phone: TYPE AND SCREEN - POSSIBLE TRANSFUSIONTYPE AND SCREEN - POSSIBLE TRANSFUSION Routine Pre-op exam Ordered: 10/23/2018[facility] Work Phone: Comment on above:Ordered: 10/23/2018TYPE AND SCREEN - POSSIBLE TRANSFUSIONTYPE AND SCREEN - POSSIBLE TRANSFUSION Blood Bank Today Preop testing 11/03/2023 9:50 AM FarmolURINALYSIS, MACRO URINALYSIS, MACRO Routine Pre-op exam Ordered: 10/23/2018[facility] Work Phone: Comment on above:Ordered: 10/23/2018X-ray of left knee [facility] Work Phone: End: 99-25-9567M-ray of left kneeXR KNEE LEFT 2 VIEWS Imaging Routine History of total knee arthroplasty, left 1 Occurrences starting 03/01/2019 until 03/01/2019SeedcampComment on above:1 Occurrences starting 03/01/2019 until 03/01/2019XR Knee - left 2 ViewsXR KNEE LEFT 2 VIEWS Imaging Routine Left knee pain, unspecified chronicity 03/18/2023 11:12 AM anfixXR Knee - left 2 ViewsXR KNEE LEFT 1-2 VIEWS Imaging Routine Hx of total knee arthroplasty, left 12/22/2023 1:17 PM FarmolXR Knee - left 2 ViewsXR KNEE LEFT 1-2 VIEWS Imaging Routine Hx of total knee arthroplasty, left 02/23/2024 11:01 AM anfixXR Knee - left 2 ViewsXR KNEE LEFT 1-2 VIEWS Imaging Routine Pain in both knees, unspecified chronicity 03/22/2024 3:36 PM [employer] Work Phone: XR Knee - left 2 ViewsXR KNEE LEFT 1-2 VIEWS Imaging Routine Pain in both knees, unspecified chronicity 04/19/2024 10:07 AM [facility] SystemXR Knee - left 2 ViewsXR KNEE LEFT 1-2 VIEWS Imaging Routine Pain in both knees, unspecified chronicity 05/31/2024 9:37 AM [facility] XR Knee - left 3 ViewsXR KNEE LEFT 3 VIEWS Imaging Routine Hx of total knee arthroplasty, left 09/01/2023 12:48 PM [facility] Work Phone: XR Knee - left 3 ViewsXR KNEE LEFT 3 VIEWS Imaging Routine Hx of total knee arthroplasty, left 11/28/2024 11:17 AM [employer] Work Phone: XR Knee - right 2 ViewsXR KNEE RIGHT 2 VIEWS Imaging Routine Right knee pain, unspecified chronicity 03/18/2023 11:12 AM [facility] End: 54-73-8382HK Knee - right 2 svh[employer]de Work Phone: Comment on above:1 Occurrences starting 01/12/2024 until 01/12/2024 End: 44-15-6793UF Knee - right 2 [employer] SystemComment on above:1 Occurrences starting 02/23/2024 until 02/23/2024XR Knee - right 2 ViewsXR KNEE RIGHT 1-2 VIEWS Imaging Routine Pain in both knees, unspecified chronicity 03/22/2024 3:36 PM [facility] SystemXR Knee - right 2 ViewsXR KNEE RIGHT 1- 2 VIEWS Imaging Routine Pain in both knees, unspecified chronicity 04/19/2024 10:07AM [employer] Work Phone: XR Knee - right 2 ViewsXR KNEE RIGHT 1-2 VIEWS Imaging Routine Pain in both knees, unspecified chronicity 05/31/2024 9:37 AM anfixXR Knee - right 2 ViewsXR KNEE RIGHT 1-2 VIEWS Imaging Routine Hx of total knee arthroplasty, right 11/28/2024 11:17 AM [employer] SystemXR Knee - right 3 ViewsXR KNEE RIGHT 3 VIEWS Imaging Routine Hx of total knee arthroplasty, right 05/19/2023 2:33 PM [employer] Work Phone: XR Knee - right 3 ViewsXR KNEE RIGHT 3 VIEWS Imaging Routine Hx of total knee arthroplasty, right 09/01/2023 12:48 PM [facility] 3 ViewsXR KNEE RIGHT 3 VIEWS Imaging Routine Right knee pain, unspecified chronicity Ordered: 4AEvoke Pharma Harper University HospitalComment on above:Ordered: 01/09/2024 Immunizations Immunization DateImmunizationNotesCare WdivmshxYcbmyzfl70-69-5921tuhmzyckf virus vaccine, unspecified formulationJodwain Barreto DO Work Phone: [facility] Health CareOyjiybqrsp09-47-6803csilbywgm virus vaccine, unspecified formulationSebenezer Mcclure MD Work Phone: [facility] SouthUpspbh88-02-9117dkvivlcaw virus vaccine, unspecified formulationChashelbi SCHWARTZ Work Phone: [facility] SouthIjnwns23-28-2489nilahrmaitxl conjugate vaccine, 13 valentNicsharona Harper DPM Work Phone: [facility]. LouisHyezgvkdbt31-17-7224rtvvnjxxp virus vaccine, unspecified formulationCritical access hospitals [facility] Work Phone: Payers DatePayer CategoryPayerPolicy [id number]-ldz [id number] Cross Blue ShieldBCBS [id number]0430-74-1829Kmeihki 1.2.840.359116.1.13.172.2.7.3.469507.315 2018MedicareMEDICARE MEDICARE A AND B xxxxxxxxxxx 2017-Present [place], [place] [id number] 2018MedicareMEDICARE MEDICARE A AND B [id number] 2017-Present [place], [id number] 1.2.840.645638.1.13.172.2.7.3.795598.315 2018Medicare 1.2.840.425633.1.13.172.2.7.3.787292.06176-07-0442BvvdcsyVQAFAA ANTHEM TRADITIONAL xxxxxxxxxxxx 2017-Presentxxxxxxxxxxxx 1.2.840.884726.1.13.172.2.7.3.414203.13681-33-7680UgmvmsfVEOHSY ANTHEM TRADITIONAL hxtayqll1941 2017-Qwvmxtfelqacsqn7769 1.2.840.298832.1.13.172.2.7.3.374450.315 [id number] 2.0.7.878934.26136011-22-8940Yabg Cross Blue [id number] 2.16840.2.930395.99137458-63-2445Qytbmca6690002 2.16.840.1.118891.3.579.2.593 55-12-0090Vmfpcsn1665674 2.16.840.1.502932.3.579.2.76129-61-1938Tgsitpo2564988 2.16840.1.178318.3.579.2.19615-60-0474Lzirnhy4502880 2.16.840.1.064571.3.579.2.56148-52-1138Lmgxjlg9864306 2.16.840.1.148276.3.579.2.17578-72-0578Giymdkx8043365 2.16.840.1.538083.3.579.2.33473-51-8241Tsupgcx7575223 2.16.840.1.408931.3.579.2.77685-89-6557Uduukzs4000885 2.16.840.1.075659.3.579.2.31041-59-3891Oqfjvft22835385 2.16.840.1.113329.3.579.2.56786-76-2884Zhzzmna44573248 2.16.840.1.241624.3.579.2.68035-84-8500Egdbgkq26207183 2.16.840.1.189472.3.579.2.63922-95-2836Ytfashb23552045 2.16.840.1.180406.3.579.2.69345-15-2706Bigwezm91004995 2.16.840.1.751631.3.579.2.90156-75-5963Dcejcih49745208 2.16.840.1.606721.3.579.2.84175-94-7730Jashzft37923675 2.16.840.1.810100.3.579.2.54104-88-1594Masotec79742767 2.16.840.1.524487.3.579.2.44035-70-8432Muyrtkx45112756 2.16.840.1.032638.3.579.2.39716-12-5868Khuzkul36358357 2.16.840.1.003486.3.579.2.85133-76-2323Aihkzqg09551694 2.16.840.1.536390.3.579.2.14587-84-2371Woalhlg08412456 2.16.840.1.308685.3.579.2.97421-20-5234Vtalbvb72358078 2.16.840.1.044302.3.579.2.00614-49-7198Rocmsel43062097 2.16.840.1.463027.3.579.2.06694-24-0517Weswlrp49848651 2.16.840.1.533592.3.579.2.849552-60-6384Cbyymwb80386187 2.840.1.567263.3.579.2.259335-60-3891Ueevnnp81057175 2.840.1.023827.3.579.2.198094-62-2529Lntzmtk7271663 2..840.1.704326.3.579.2.142589-31-8605Vxspvpc7119654 2..840.1.012547.3.579.2.119120-27-3735Vsufkev0386628 2.840.1.552585.3.579.2.690780-89-7440Sgonozo6909869 2.840.1.268298.3.579.2.299360-70-6961Gvjtdlv3571463 2.840.1.685680.3.579.2.344562-78-2123Atijuog9836509 2.16840.1.284299.3.579.2.608127-24-3865Ecdsboa5878344 2.16840.1.042661.3.579.2.645735-42-5436Nsuckpi3595073 2.16.840.1.969036.3.579.2.372873-47-0551Iinirwd3897665 2.16.840.1.955598.3.579.2.090644-29-7558Pkvgsoy8826303 2.16.840.1.974733.3.579.2.734324-43-9955Vtbrfzz1344994 2.16.840.1.424075.3.579.2.203943-38-1251Suubdrt4644056 2..840.1.859206.3.579.2.268915-72-6217Tmxfinx8921505 2.16.840.1.511689.3.579.2.844167-19-5136Mgwctss8094379 2..840.1.406310.3.579.2.908518-13-9486Koffaaw4342341 2..840.1.374052.3.579.2.174057-74-9645Hvdtlwj1149963 2.16.840.1.153191.3.579.2.1259Private Health [id number] [id number] 189v0b81-oqi1-98mg-c091-3n1320ig606tUrsoeks86728665 2.840.1.986345.3.579.2.531 Social History DateTypeDetailFacilityStart: 10-23-2018 End: 72-70-8745Vodqjci smoking status NHISNel[facility] center smokerMarietta Osteopathic Clinic SystemStart: 95-75-4873Zph Assigned At BirthNot on [facility] Work Phone: Start: 11-21-2019 End: 65-71-8836Dawyxon intakeCurrent non-drinker of alcohol (finding)[facility]ALTHStart: 11-19-2020 End: 76-08-5714Ccqdpdf use and exposureNever usedAdena Health Systemtart: 05-19-2023 End: 99-53-4269Nfe Assigned At BirthAdena Health Systemtart: 05-19-2023 End: 08-23-3754Yvmzfwh of Social functionAdena Health Systemtart: 03-30-2023 Gender identityIdentifies as female gender (finding)[facility] Systemtart: 04-16-2023 End: 63-38-9659Boedhmiq to SARS-CoV-2 (event)Not sureAdena Health Systemtart: 98-87-4995Mfr Assigned At [facility] HospitalHas the electric, gas, oil, or water company threatened to shut off services in your home in past 12MoNDelaware County Hospital(I/We) worried whether (my/our) food would run out before (I/we) got money to buy more.Never [facility] Hospitaltart: 65-22-8147Zu the past 12 months, has lack of transportation kept you from medical appointments or from getting medications?NoAdena Health Systemtart: 08-16-2024 End: 50-05-8587Zfbqxyrmx beverage intakeDeferNONH HealthcareStart: 04-24-2024 Alcohol CommentCaffeine: Current some daysCACHE VALLEY HOSPITAL HealthcareStart: 50-19-4873Ugkuog orientationHeterosexual (finding)[facility] HealthcareSexFemale (finding)[facility] Medical Equipment Procedure CodeEquipment CodeEquipment Original TextEquipment IdentifierDates Prolite Mesh 25.4 Cm X 35.5cmStart: 82-84-3694Tfbtctr R 1x40 Single - [id number] Start: 38-06-4069Jtqawoh Mesh 25.4 Cm X 35.5cmStart: 35-99-1393Cxubrpc R 1x40 Single - [id number]: 31-41-4464Jqddzey Mesh 25.4 Cm X 35.5cmStart: 18-50-8048Iqbtyka R 1x40 Single - [id number]: 66-48-9827Oonvkaf Mesh 25.4 Cm X 35.5cmStart: 97-80-9208Oyswmki R 1x40 Single - [id number]: 11-21-2018 Prolite Mesh 25.4 Cm X 35.5cmStart: 35-41-9501Yatqtzo Mesh 25.4 Cm X 35.5cm Start: 55-59-9389Dtzxhbw R 1x40 Single - [id number]: 84-22-3203Nplakos R 1x40 Single - [id number]: 18-40-2650Liclilr Mesh 25.4 Cm X 35.5cmStart: 52-31-8876Ozoucke Mesh 25.4 Cm X 35.5cmStart: 35-04-6173Ydgzuyg R 1x40 Single - [id number]: 95-61-9104Vwvbnti R 1x40 Single - [id number]: 11-21-2018 Prolite Mesh 25.4 Cm X 35.5cmStart: 40-71-9026Ddkbypx Mesh 25.4 Cm X 35.5cm Start: 96-87-9333Pmojswf R 1x40 Single - [id number]: 97-82-9979Pvhvlhi R 1x40 Single - [id number]: 16-09-3874Hglxozh Mesh 25.4 Cm X 35.5cmStart: 96-59-1895Heajhhw Mesh 25.4 Cm X 35.5cmStart: 20-44-6326Xdfplkk R 1x40 Single - [id number]: 21-81-5810Ecnmoma R 1x40 Single - [id number]: 11-21-2018 Prolite Mesh 25.4 Cm X 35.5cmStart: 40-90-5173Depypam Mesh 25.4 Cm X 35.5cm Start: 14-42-7807Eczppyi R 1x40 Single - [id number]: 51-28-6958Opiolde R 1x40 Single - [id number]: 69-71-8126Gdaebtz Mesh 25.4 Cm X 35.5cmStart: 01-13-9452Inlgdmr Mesh 25.4 Cm X 35.5cmStart: 56-53-7768Nixgqii R 1x40 Single - [id number]: 33-34-6000Jaqxjjt R 1x40 Single - [id number]: 11-21-2018 Prolite Mesh 25.4 Cm X 35.5cmStart: 61-01-3876Oljfgzj Mesh 25.4 Cm X 35.5cm Start: 36-63-2847Pblfafv R 1x40 Single - [id number]: 53-68-6879Xcwnrot R 1x40 Single - [id number]: 91-64-4786Fgukipq Mesh 25.4 Cm X [id number]_imp Start: 61-73-2891Hnsexak R 1x40 Single - [id number]_yctIdlzu: 11-21-2018 Prolite Mesh 25.4 Cm X 35.5cmStart: 58-83-0795Mwlfbud Mesh 25.4 Cm X 35.5cm Start: 27-39-6120Salfeow R 1x40 Single - [id number]: 19-06-8704Zxtrvgy R 1x40 Single - [id number]: 11-12-1884Rcchvcr Mesh 25.4 Cm X 35.5cmStart: 63-86-0126Hrzdvee R 1x40 Single - [id number]: 41-86-0957Xctiqqd Mesh 25.4 Cm X 35.5cmStart: 27-37-5139Rvjqint Mesh 25.4 Cm X 35.5cmStart: 00-28-1888Vhfqqoy R 1x40 Single - [id number]: 57-88-9064Qpuoxxw R 1x40 Single - [id number] Start: 52-77-7780Frvopj Tibial Insert Fixed Bearing Posterior Stabilized [id number]_impStart: 87-05-5085Tayafi Knee System Revision Distal Femoral Augment Size 7 12mm [id number]_avuTtogi: 93-73-7446Stjujlp Mesh Polypropylene Nonabsorbable Synthetic Surgical Mesh 12 X 12 [id number]_impStart: 11-29-2023 Attune Knee System Revision Pressfit Stem 12mm X 60mm1276232_impStart: 73-60-1968Rrhbvk Knee System Revision Distal Femoral Augment Size 7 12mm Tkmngqig6817974_mjdFmawr: 08-51-9353Lmbxgl Knee System Revision Tibial Base Rotating Platform Size 5 Qomrjdpy4294525_gkzOvgyt: 83-63-9239Rehrek Knee System Revision Tibial Sleeve Poracoat Partially Coated [id number]_impStart: 56-86-0604Wcqlog Knee System Revision Femoral Sleeve Porocoat Partially Coated 40mm1276245_impStart: 18-00-5168Nzpniv Knee System Revision Posterior Femoral Augment Size 7 4mm [id number]_pgiEpyuk: 41-04-5225Ibsnuw Knee System Revision Crs Femoral Size 7 Left Dkeivsmh0705613_bvhStezd: 24-31-5064Abhlbby R+G 1x40 Single With Gentamicin - [id number]_eytMcdlm: 79-34-2480Dxtpjfu R 1 X 40 Us - [id number]_qyrTstip: 85-44-5309Tphbvf Knee System Revision Tibial Base Fixed Qmzlbdd2217067_wozZixsx: 48-92-8591Huklqa Femoral Posterior Xcktzzbtyb5078414_icmYfduw: 98-57-4345Jgmsed Patella Medialized [id number]_ble Start: 61-83-3537Dgxhcusz Cancellous Bone Eysmg0868254_incVvdyr: 04-26-2023 Attune Knee System Revision Pressfit [id number]_onxMrcpb: 34-70-2178Qpxgfvu R & G Bone Cement High-Viscosity With Gentamicin - [id number]_zrfOwdch: 85-29-2521Vxfrsj Knee System Revision Crs Rotating Platform Yhuzxg7802616_sxt Start: 11-29-2023 Clinical Notes 03-11-2021 to 09-05-2025 Note Date & QlfhFeesJqbqaodn72-37-7733 History of Present illness Narrative* Elie Harper, [...] mouth in the morning., Disp: , Rfl: Fuzugqobjaj-Djyxjqyak-Ftj C-Mn (Glucosamine 1500 Complex) capsule, as directed [...] Insecurity: No Food Insecurity (11/29/2023) Received from [facility] Hunger Vital Sign Within the past 12 months, you worried that your food would run out before you got the money to buymore.: Never true Within the past 12 months, the food you bought just didn't last and you didn't have money to get more.: Never true Transportation Needs: No Transportation Needs (11/29/2023) Received from [facility] PRAPARE - Transportation Lack of Transportation (Medical): No Lack of Transportation (Non-Medical): No Physical Activity: Not on file Stress: Not on file Social Connections: Not on file Intimate Partner Violence: Not on file Housing Stability: Low Risk (11/29/2023) Received from [facility] Housing Stability Vital Sign Unable to [...] 10 Elie Harper DPM documented in this encounterTenet St. LouisVkhbomgivu17-47-4888 Evaluation note* Diagnosis Onset Date Resolution Status Admit Date Facet arthropathy, lumbar acuteSeptember 2024 10:38amBlepharospasmchronicSeptember 2024 10:38amCarpal tunnel syndrome, bilateralchronicSeptember 2024 10:38am PolyneuropathychronicSeptember 2024 10:38amSpinal stenosis of lumbar regionchronicSeptember 2024 10:38amFacet arthropathy, lumbaracuteSeptember 2024 9:39am [facility] Work Phone: 1(388) 547-283408-14-2025 History of Present illness Narrative* Elie Harper, [...] mouth in the morning., Disp: , Rfl: Bopqkaqvmsp-Exsrsbpma-Mqi C-Mn (Glucosamine 1500 Complex) capsule, as directed [...] Insecurity: No Food Insecurity (11/29/2023) Received from [facility] Hunger Vital Sign Worried About Running Out of Food in the Last Year: Never true Ran Out of Food in the Last Year: Never true Transportation Needs: No Transportation Needs (11/29/2023) Received from [facility] PRAPARE - Transportation Lack of Transportation (Medical): No Lack of Transportation (Non-Medical): No Physical Activity: Not on file Stress: Not on file Social Connections: Not on file Intimate Partner Violence: Not on file Housing Stability: Low Risk (11/29/2023) Received from [facility] Housing Stability Vital Sign Unable to [...] 10 Elie Harper DPM documented in this encounterTenet St. LouisUqbdchkcaz53-41-5351 NoteRight Eye Reliability was good. Progression has been stable. Foveal threshold was normal. Findings include normal observations. Left Eye Reliability was good. Progression has been stable. Foveal threshold was normal. Findings include normal observations.Tenet St. LouisVqfliwpcgq29-57-0599 NoteRight Eye Quality was good. Scan locations included subfoveal. Progression has been stable. Findings include normal observations. Left Eye Quality was poor. Scan locations included subfoveal. Progression has been stable. Findings include normal observations. Notes Good scan with normal appearanceTenet St. LouisDczgenalan78-35-9936 History of Present illness Narrative* Ramon Barreto, DO - 05/15/2025 9:00 AM EDT Images [...] 1,000 mcg by mouth in the morning. Npnrpjftywo-Unkcakxxd-Sgv C-Mn (Glucosamine 1500 Complex) capsule as directed [...] above evaluations. 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 Blepharitis of upper and lower eyelids of both eyes, unspecified type - Blepharitis, posterior type OU - The patient exhibits inspissated meibomian glands. Warm compresses, lid massage and lid scrubs were recommended. documented in this [facility]06-25-2025 Evaluation note* Diagnosis Onset Date Resolution Status Admit Date Blepharospasm chronicJune 2024 9:33amCarpal tunnel syndrome, bilateralchronicJune 2024 9:33amDDD (degenerative disc disease), lumbarchronicJune 2024 9:33am Facet arthritis of lumbar regionchronicJune 2024 9:33amPolyneuropathy chronicJune 2024 9:33amSpinal stenosis of lumbar regionchronicJune 2024 9:33am [facility] Work Phone: 1(571) 869-625206-25-2025 Evaluation note* Diagnosis Onset Date Resolution Status Admit Date Blepharospasm chronicJune 2024 9:33amCarpal tunnel syndrome, bilateralchronicJune 2024 9:33amDDD (degenerative disc disease), lumbarchronicJune 2024 9:33am Facet arthritis of lumbar regionchronicJune 2024 9:33amPolyneuropathy chronicJune 2024 9:33amSpinal stenosis of lumbar regionchronicJune 2024 9:33amBlepharospasmchronicSeptember 2024 10:38amCarpal tunnel syndrome, bilateralchronicSeptember 2024 10:38amPolyneuropathychronic Alanis 2024 10:38amSpinal stenosis of lumbar regionchronicSeptember 2024 10:38am [facility] Work Phone: 1(255) 268-150006-25-2025 Evaluation note* Diagnosis Onset Date Resolution Status Admit Date Blepharospasm chronicJune 2024 9:33amCarpal tunnel syndrome, bilateralchronicJune 2024 9:33amDDD (degenerative disc disease), lumbarchronicJune 2024 9:33am Facet arthritis of lumbar regionchronicJune 2024 9:33amPolyneuropathy chronicJune 2024 9:33amSpinal stenosis of lumbar regionchronicJune 2024 9:33amFacet arthropathy, lumbaracuteSeptember 2024 10:38am BlepharospasmchronicSeptember 2024 10:38amCarpal tunnel syndrome, bilateralchronicSeptember 2024 10:38amPolyneuropathychronicSeptember 2024 10:38amSpinal stenosis of lumbar regionchronicSeptember 2024 10:38am [facility] Work Phone: 1(122) 271-933705-29-2025 History of Present illness Narrative* Elie Harper, [...] Fibromyalgia Hemifacial spasm History of transfusion Hypertension ([facility]) Muscle spasm Osteopenia Peripheral neuropathy Polyneuropathy PVD (peripheral vascular disease) ([facility]) Radiculopathy, lumbosacral region Small fiber neuropathy Spinal stenosis excluding cervical region lumbar region, without neurogenic claudication Spondylolisthesis Trigeminal neuralgia ([facility]) Medications: Current Outpatient Medications: acetaminophen (Tylenol [...] mouth in the morning., Disp: , Rfl: Zhbjwgdbujg-Gicireoxu-Csp C-Mn (Glucosamine 1500 Complex) capsule, as directed [...] Insecurity: No Food Insecurity (11/29/2023) Received from [facility] Hunger Vital Sign Worried About Running Out of Food in the Last Year: Never true Ran Out of Food in the Last Year: Never true Transportation Needs: No Transportation Needs (11/29/2023) Received from [facility] PRAPARE - Transportation Lack of Transportation (Medical): No Lack of Transportation (Non-Medical): No Physical Activity: Not on file Stress: Not on file Social Connections: Not on file Intimate Partner Violence: Not on file Housing Stability: Low Risk (11/29/2023) Received from [facility] Housing Stability Vital Sign Unable to [...] 10 Elie Harper DPM documented in this encounterTenet St. LouisWofezxxnmw26-95-4712 Telephone encounter Note* Telephone Encounter - Gaby Christianson NP - 03/20/2025 3:00 PM EDT OARRS reviewed. Due now. Prescription sent. [facility] LouisPujjpnnigx04-51-3674 Miscellaneous Notes* Telephone Encounter - Gaby Christianson NP - 03/20/2025 3:00 PM EDT OARRS reviewed. Due now. Prescription sent. * Telephone Encounter - REGINALD Snider - 03/20/2025 2:24 PM EDT Patient left message requesting refill of pregabalin 25mg sent to [facility] in [place]. (.Continue Lyrica 25 mg by mouth twice a day ... Per Gaby Christianson CAT SCAN TECH on 12/12/24) documented in this encounterTenet St. LouisUwvpspotof83-30-9309 Telephone encounter Note* Telephone Encounter - REGINALD Snider - 03/20/2025 2:24 PM EDT Patient left message requesting refill of pregabalin 25mg sent to [facility] in [place]. (.Continue Lyrica 25 mg by mouth twice a day ... Per Gaby Christianson NP on 12/12/24) [facility] LouisGsnzkaagnk11-40-0449 History of Present illness Narrative* Elie Harper, PK - 03/07/2025 8:30 AM EDT Patient: Danyelle [...] Peripheral neuropathy Polyneuropathy PVD (peripheral vascular disease) ([facility]) Radiculopathy, lumbosacral region Small fiber neuropathy Spinal stenosis excluding cervical region lumbar region, without neurogenic claudication Spondylolisthesis Trigeminal neuralgia (CMS/[facility]) Medications: Current Outpatient Medications: acetaminophen (Tylenol [...] mouth in the morning., Disp: , Rfl: Yankwwbxelh-Oqfigldmx-Wov C-Mn (Glucosamine 1500 Complex) capsule, as directed [...] gear Elie Harper DPM documented in this encounterTenet St. LouisOqhgjfbuck96-86-7468 History of Present illness Narrative* Magalie Kaufman, - 02/28/2025 9:15 AM EDT Procedure - [...] were sterilized with 70% isopropanol. Lot # [id number] Expiration: 01/2026 Dilution Per 100 units diluted with 1mL of 0.9% Sodium Chloride Procedure Right superior Lateral orbicularis oculi 7.5 units Right lateral orbicularis oculi 7.5 units Right inferior lateral orbicularis oculi 7.5 units Right inferior orbicularis oculi medial 2.5 units Right superior medial orbicularis oculi 2.5 units Right oxygen plant operator 2.5 units Right masseter 5+10+5 units Right [...] when to seek emergent treatment. Procedure Codes 07686 Chemodenervation of facial muscle J0585 Botulinum toxin a per unit, Units: Follow Up 3 months Botox documented in this encounterTenet St. LouisXsfmrmvruu13-57-7453 History of Present illness Narrative* Elie Rashmi Harper, DPM - 02/20/2025 2:00 PM EDT Patient: [...] Fibromyalgia Hemifacial spasm History of transfusion Hypertension ([facility]) Muscle spasm Osteopenia Peripheral neuropathy Polyneuropathy PVD (peripheral vascular disease) ([facility]) Radiculopathy, lumbosacral region Small fiber neuropathy Spinal stenosis excluding cervical region lumbar region, without neurogenic claudication Spondylolisthesis Trigeminal neuralgia ([facility]) Medications: Current Outpatient Medications: acetaminophen (Tylenol [...] mouth in the morning., Disp: , Rfl: Vvclawztwyo-Ipenpstve-Ntq C-Mn (Glucosamine 1500 Complex) capsule, as directed [...] hours Elie Harper DPM documented in this encounterTenet St. LouisUzcxatjkkr18-02-5163 Telephone encounter Note* Telephone Encounter - Elie Estrada MA - 02/19/2025 12:47 PM EDT Strange the med got removed. The Lyrica is needing refill. Added. [facility] LouisCrfartuajo47-90-1481 Miscellaneous Notes* Telephone Encounter - Elie Estrada MA - 02/19/2025 12:47 PM EDT Strange the med got removed. The Lyrica is needing refill. Added. * Telephone Encounter - Deidre Holcomb MA - 02/19/2025 12:20 PM EDT For what medication? * Telephone Encounter - Elie Estrada MA - 02/19/2025 10:26 AM EDT OARRS Reviewed due today documented in this encounterTenet St. LouisAyfnzmerdm88-04-8789 Telephone encounter Note* Telephone Encounter - Deidre Holcomb MA - 02/19/2025 12:20 PM EDT For what medication? [place] [id number] Telephone encounter Note* Telephone Encounter - Elie Estrada MA - 02/19/2025 10:26 AM EDT OARRS Reviewed due today [place] [id number] History of Present illness Narrative* Elie Harper [...] Fibromyalgia Hemifacial spasm History of transfusion Hypertension ([facility]) Muscle spasm Osteopenia Peripheral neuropathy Polyneuropathy PVD (peripheral vascular disease) ([facility]) Radiculopathy, lumbosacral region Small fiber neuropathy Spinal stenosis excluding cervical region lumbar region, without neurogenic claudication Spondylolisthesis Trigeminal neuralgia (CMS/[facility]) Medications: Current Outpatient Medications: acetaminophen (Tylenol [...] mouth in the morning., Disp: , Rfl: Ettvqtwjbix-Gqtiyagzm-Ush C-Mn (Glucosamine 1500 Complex) capsule, as directed [...] p.r.n. Elie Harper DPM documented in this encounterTenet St. LouisMzscrecwqw82-88-8642 History of Present illness Narrative* Elie Harper [...] mouth in the morning., Disp: , Rfl: Ctggjgnonao-Gnogwosjb-Exi C-Mn (Glucosamine 1500 Complex) capsule, as directed [...] patient. Elie Harper DPM documented in this [facility]03-13-2025 Telephone encounter Note* Telephone Encounter - Shelly Ford NP - 01/17/2025 2:45 PM EDT OARRs reviewed. Rx sent for [facility]. [facility] LouisVflgynczux09-76-7101 Miscellaneous Notes* Telephone Encounter - Shelly Ford NP - 01/17/2025 2:45 PM EDT OARRs reviewed. Rx sent for [place]. * Telephone Encounter - Elie Estrada MA - 01/17/2025 9:18 AM EDT The pt calls in requesting a refill of pregabalin 12/12/2024 Continue Lyrica 25 mg by mouth twice a day. OARRS reviewed due 01/20/2025 documented in this [facility]03-13-2025 History of Present illness Narrative* Elie Harper [...] Fibromyalgia Hemifacial spasm History of transfusion Hypertension (CMS/[facility]) Muscle spasm Osteopenia Peripheral neuropathy Polyneuropathy PVD (peripheral vascular disease) (CMS/[facility]) Radiculopathy, lumbosacral region Small fiber neuropathy [...] mouth in the morning., Disp: , Rfl: Dhjkxmxizol-Qspgxhyau-Cbk C-Mn (Glucosamine 1500 Complex) capsule, as directed [...] Insecurity: No Food Insecurity (11/29/2023) [facility] Hunger Vital Sign Worried About Running Out of Food in the Last Year: Never true Ran Out of Food in the Last Year: Never true Transportation Needs: No Transportation Needs (11/29/2023) [facility] PRAPARE - Transportation Lack of Transportation (Medical): No Lack of Transportation (Non-Medical): No Physical Activity: Not on file Stress: Not on file Social Connections: Not on file Intimate Partner Violence: Not on file Housing Stability: Low Risk (11/29/2023) Re[facility] from [facility], [facility] Housing Stability Vital Sign Unable to [...] risks, alternatives, benefits, post op complications and local intermodal truck driver expectations were discussed including but not limited to: infection,bone infection,wound dehiscence hardware failure and irritation,wound dehiscence,delay union/mal union/non union of bone. RSDS,neuroma,duty limitations,DVT/PE, LA,nerve damage, scar, loss of sensation, swelling. Pt [...] DPM January 17, 20[address] LouisPlewhzfofz91-86-2534 Telephone encounter Note* Telephone Encounter - Elie Estrada MA - 01/17/2025 9:18 AM EDT The pt calls in requesting a refill of pregabalin 12/12/2024 Continue Lyrica 25 mg by mouth twice a day. OARRS reviewed due 01/20/[address] LouisRuriillded06-90-4563 History of Present illness Narrative* Elie Harper [...] mouth in the morning., Disp: , Rfl: Nywscbhqlfg-Zbplxqpqp-Npm C-Mn (Glucosamine 1500 Complex) capsule, as directed [...] Insecurity: No Food Insecurity (11/29/2023) Received from [facility], [facility] Hunger Vital Sign Worried About Running Out of Food in the Last Year: Never true Ran Out of Food in the Last Year: Never true Transportation Needs: No Transportation Needs (11/29/2023) Received from [facility], [facility] PRAPARE - Transportation Lack of Transportation (Medical): No Lack of Transportation (Non-Medical): No Physical Activity: Not on file Stress: Not on file Social Connections: Not on file Intimate Partner Violence: Not on file Housing Stability: Low Risk (11/29/2023) Received from [facility], [facility] Housing Stability Vital Sign Unable to [...] Patient may continue with conservative treatments including msps-dhr-ctluccm anti- inflammatories and other treatments suggested today. [...] daily Elie Harper DPM documented in this encounterTenet St. LouisZqligyrwjn23-76-1320 History of Present illness Narrative* Elie Harper [...] Fibromyalgia Hemifacial spasm History of transfusion Hypertension (CMS/[facility]) Muscle spasm Osteopenia Peripheral neuropathy Polyneuropathy PVD (peripheral vascular disease) (CMS/[facility]) Radiculopathy, lumbosacral region Small fiber neuropathy [...] mouth in the morning., Disp: , Rfl: Bjimxcacyur-Tajktboop-Sdh C-Mn (Glucosamine 1500 Complex) capsule, as directed [...] Insecurity: No Food Insecurity (11/29/2023) Received from [facility], [facility] Hunger Vital Sign Worried About Running Out of Food in the Last Year: Never true Ran Out of Food in the Last Year: Never true Transportation Needs: No Transportation Needs (11/29/2023) Received from [facility], [facility] PRAPARE - Transportation Lack of Transportation (Medical): No Lack of Transportation (Non-Medical): No Physical Activity: Not on file Stress: Not on file Social Connections: Not on file Intimate Partner Violence: Not on file Housing Stability: Low Risk (11/29/2023) Received from [facility], [facility] Housing Stability Vital Sign Unable to [...] issues Elie Harper DPM documented in this encounterTenet St. LouisZxsojdgizf35-50-6442 History of Present illness Narrative* Gaby Christianson [...] Cataracts Sister Loretta Barrera Diabetes Sister Loretta Bruce Cataracts Sister Anh [...] wrist extensors , wrist flexor , and hematology nurse strength 5/5. LUE strength deltoid , biceps , triceps , wrist extensors , wrist flexor , and hematology nurse strength 5/5. RLE strength iliopsoas, quadriceps, tibialis [...] reflex 0. LLE knee reflex 0. Coordination: Rbulji-zg-japk testing normal. Rapid alternating movements are normal. Gait: Steady. Utilizing walker. Review and summary of old records: EMG of the bilateral upper extremities at [facility] on 10/23/24: Bilateral median neuropathies, at or distal to the wrist, such as in carpal tunnel syndrome, which are moderate on the left and minimal on the right in degree electrically. Bilateral chronic C8 radiculopathies which are mild in degree electrically. MRI of the lumbar spine at the [facility] on 04/01/21: Posterior decompression and [...] NP [facility] documented in this encounterTenet St. LouisQhwxrfmquw29-82-8623 History of Present illness Narrative* Dania Lanier [...] days. She has been going to the [facility] and getting in the pool and doing some exercises. She finished formal PT in August and her therapist mentioned to her about maybe getting a script for water therapy. She is taking Tylenol Arthritis and tramadol. She rates her pain on a scale of 1/10. Date: 11/28/2024 11:20 AM Patient: Danyelle Haskins MR#: [id number] : 1955 Age: 69 y.o. Referring Physician: [...] W/ IMPLANT (ECCE IOL) Bilateral 2018 [facility] TREATMENT OPEN PATELLAR FX W/ [...] times daily October 01, 2020 10:38am 10-01-2020 [facility] ([id number]) Docusate 100 MG capsule Take 1 capsule by mouth 2 times daily. 60 capsule 0 Doxazosin 4 MG tablet Take 1 tablet by mouth daily. Folic acid 1 MG tablet Take 1 tablet by mouth daily. Iydpoieivlp-Ljhbrdxgo-Wlh C-Mn (Glucosamine 1500 Complex) capsule Take by [...] W/ IMPLANT (ECCE IOL) Bilateral 2017 [facility] TREATMENT OPEN PATELLAR FX W/ [...] times daily October 01, 2020 10:38am 10-01-2020 [facility] ([id number]), Disp: , Rfl: Doxazosin 4 MG tablet, Take 1 tablet by mouth daily., Disp: , Rfl: Folic acid 1 MG tablet, Take 1 tablet by mouth daily., Disp: , Rfl: Rjpfjdrdmbs-Krtlccqtt-Avc C-Mn (Glucosamine 1500 Complex) capsule, Take by [...] Sulfamethoxazole Weakness Trimethoprim Weakness documented in this [facility]01-09-2025 History of Present illness Narrative* Elie Harper, [...] Fibromyalgia Hemifacial spasm History of transfusion Hypertension ([facility]) Muscle spasm Osteopenia Peripheral neuropathy Polyneuropathy PVD (peripheral vascular disease) ([facility]) Radiculopathy, lumbosacral region Small fiber neuropathy Spinal stenosis excluding cervical region lumbar region, without neurogenic claudication Spondylolisthesis Trigeminal neuralgia ([facility]) Medications: Current Outpatient Medications: acetaminophen (Tylenol [...] mouth in the morning., Disp: , Rfl: Rpgqlkahnbw-Ivvddumvt-Fpf C-Mn (Glucosamine 1500 Complex) capsule, as directed [...] Insecurity: No Food Insecurity (11/29/2023) [facility] [facility] Hunger Vital Sign Worried About Running Out of Food in the Last Year: Never true Ran Out of Food in the Last Year: Never true Transportation Needs: No Transportation Needs (11/29/2023) Received from [facility], [facility] PRAPARE - Transportation Lack of Transportation (Medical): No Lack of Transportation (Non-Medical): No Physical Activity: Not on file Stress: Not on file Social Connections: Not on file Intimate Partner Violence: Not on file Housing Stability: Low Risk (11/29/2023) Received from [facility], [facility] Housing Stability Vital Sign Unable to [...] Patient may continue with conservative treatments including zttk-ovs-rydhgwb anti- inflammatories and other treatments suggested today. Patient may want to be s cheduled for surgical intervention in the near future. Discussed left 3rd digit PIPJ arthrodesis with K-wire and postop timeframe in detail me she may consider in the future under local anesthetic Elie Harper DPM documented in this encounterTenet St. LouisMagxxfilfy01-97-6964 History of Present illness Narrative* Magalie Kaufman [...] were sterilized with 70% isopropanol. Lot # [id number] Expiration: 01/2027 Dilution Per 100 units diluted with 1mL of 0.9% Sodium Chloride Procedure Right superior Lateral orbicularis oculi 7.5 units Right lateral orbicularis oculi 7.5 units Right inferior lateral orbicularis oculi 7.5 units Right inferior orbicularis oculi medial 2.5 units Right superior medial orbicularis oculi 2.5 units Right oxygen plant operator 2.5 units Right masseter 5+10+5 units Right [...] when to seek emergent treatment. Procedure Codes 06282 Chemodenervation of facial muscle J0585 Botulinum toxin a per unit, Units: Follow Up 3 months Botox documented in this encounterTenet St. LouisEavlljzkao39-03-3525 Telephone encounter Note* Telephone Encounter - Sheryl Harley MA - 10/24/2024 9:02 AM EST Patient calls stating her lyrica RX was sent in with the incorrect directions. It needs to be 25mg in the morning and 25mg in the evening. RX has been fixed with correct directions. Can you please send. [facility] St[facility] LouisTsjhwdizuv41-13-6281 Miscellaneous Notes* Telephone Encounter - Sheryl Harley MA - 10/24/2024 9:02 AM EST Patient calls stating her lyrica RX was sent in with the incorrect directions. It needs to be 25mg in the morning and 25mg in the evening. RX has been fixed with correct directions. Can you please send. documented in this [facility]12-17-2024 History of Present illness Narrative* REGINALD Snider - 10/23/2024 10:30 AM EST Images from the original note were not included. Reason for Appointment: EMG Patient: Danyelle Haskins : 1955 EMG Computer: [employer] Referring Physician: Dr. Shante Montenegro EMG: DAVID accounts administrator: Kris Arevalo RT(R) Office Location: [place] Reason for EMG: c/o numbness/tingling in left [...] nature of the test. documented in this [facility]12-09-2024 History of Present illness Narrative* Shante Montenegro [...] Fibromyalgia Hemifacial spasm History of transfusion Hypertension ([facility]) Muscle spasm Osteopenia Peripheral neuropathy Polyneuropathy PVD (peripheral vascular disease) ([facility]) Radiculopathy, lumbosacral region Small fiber neuropathy [...] Mother Mary Haskins Macular degeneration Mother Mary Hasknis Cancer Father Carmelo Haskins Cancer Sister Loretta [...] wrist extensors , wrist flexor , and hematology nurse strength 5/5. LUE strength deltoid , biceps , triceps , wrist extensors , wrist flexor , and hematology nurse strength 5/5. RLE strength iliopsoas, quadriceps, tibialis [...] reflex 0. LLE Knee reflex 0. Coordination: Ewlzzd-bg-bszy testing normal. Rapid alternating movements are normal. Gait: Steady. Utilizing walker. Review and summary of old records: MRI of the lumbar spine at the [facility] on 04/01/21: Posterior decompression and [...] new or worsening symptoms. documented in this encounterTenet St. LouisAqoefpxuud34-63-8458 History of Present illness Narrative* Elie Harper [...] Fibromyalgia Hemifacial spasm History of transfusion Hypertension ([facility]) Muscle spasm Osteopenia Peripheral neuropathy Polyneuropathy PVD (peripheral vascular disease) ([facility]) Radiculopathy, lumbosacral region Small fiber neuropathy Spinal stenosis excluding cervical region lumbar region, without neurogenic claudication Spondylolisthesis Trigeminal neuralgia ([facility]) Medications: Current Outpatient Medications: acetaminophen (Tylenol [...] mouth in the morning., Disp: , Rfl: Qsdjdtkfigc-Ceulgwnwz-Ceb C-Mn (Glucosamine 1500 Complex) capsule, as directed [...] Insecurity: No Food Insecurity (11/29/2023) [facility] Hunger Vital Sign Worried About Running Out of Food in the Last Year: Never true Ran Out of Food in the Last Year: Never true Transportation Needs: No Transportation Needs (11/29/2023) Received from [facility], [facility] PRAPARE - Transportation Lack of Transportation (Medical): No Lack of Transportation (Non-Medical): No Physical Activity: Not on file Stress: Not on file Social Connections: Not on file Intimate Partner Violence: Not on file Housing Stability: Low Risk (11/29/2023) Received from [facility], [facility] Housing Stability Vital Sign Unable to [...] 10 Elie Harper DPM documented in this [facility]10-10-2024 History of Present illness Narrative* Elie Harper [...] discussion of possible surgical intervention by her door slinger who has since retired. She states diminished [...] Fibromyalgia Hemifacial spasm History of transfusion Hypertension ([facility]) Muscle spasm Osteopenia Peripheral neuropathy Polyneuropathy PVD (peripheral vascular disease) ([facility]) Radiculopathy, lumbosacral region Small fiber neuropathy Spinal stenosis excluding cervical region lumbar region, without neurogenic claudication Spondylolisthesis Trigeminal neuralgia ([facility]) Medications: Current Outpatient Medications: acetaminophen (Tylenol [...] mouth in the morning., Disp: , Rfl: Jnsnltblfbm-Smgtjejsk-Wsb C-Mn (Glucosamine 1500 Complex) capsule, as directed [...] Insecurity: No Food Insecurity (11/29/2023) Received from [facility], [facility] Hunger Vital Sign Worried About Running Out of Food in the Last Year: Never true Ran Out of Food in the Last Year: Never true Transportation Needs: No Transportation Needs (11/29/2023) Received from [facility], [facility] PRAPARE - Transportation Lack of Transportation (Medical): No Lack of Transportation (Non-Medical): No Physical Activity: Not on file Stress: Not on file Social Connections: Not on file Intimate Partner Violence: Not on file Housing Stability: Low Risk (11/29/2023) Received from [facility], [facility] Housing Stability Vital Sign Unable to [...] abx. Elie Harper DPM documented in this encounterTenet St. LouisMeotlwndja63-48-8004 History of Present illness Narrative* Elie Harper, PK - 08/02/2024 10:30 AM EDT Patient: Danyelle [...] discussion of possible surgical intervention by her door slinger who has since retired. She states diminished [...] Fibromyalgia Hemifacial spasm History of transfusion Hypertension ([facility]) Muscle spasm Osteopenia Peripheral neuropathy Polyneuropathy PVD (peripheral vascular disease) ([facility]) Radiculopathy, lumbosacral region Small fiber neuropathy Spinal stenosis excluding cervical region lumbar region, without neurogenic claudication Spondylolisthesis Trigeminal neuralgia ([facility]) Medications: Current Outpatient Medications: acetaminophen (Tylenol [...] mouth in the morning., Disp: , Rfl: Narnddgqvld-Rfrbcppqb-Lgh C-Mn (Glucosamine 1500 Complex) capsule, as directed [...] Insecurity: No Food Insecurity (11/29/2023) Received from [facility], [facility] Hunger Vital Sign Worried About Running Out of Food in the Last Year: Never true Ran Out of Food in the Last Year: Never true Transportation Needs: No Transportation Needs (11/29/2023) Received from [facility], [facility] PRAPARE - Transportation Lack of Transportation (Medical): No Lack of Transportation (Non-Medical): No Physical Activity: Not on file Stress: Not on file Social Connections: Not on file Intimate Partner Violence: Not on file Housing Stability: Low Risk (11/29/2023) [facility] St[facility] Vital Sign Unable to Pay [...] antibiotic. Elie Harper DPM documented in this encounterTenet St. LouisIllmiiinju47-13-1722 NoteRight Eye Quality was good. Scan locations included subfoveal. Progression has been stable. Findings include normal observations. Left Eye Quality was good. Scan locations included subfoveal. Progression has been stable. Findings include normal observations. Notes Good scan with normal appearanceTenet St. LouisEmruqxqllg76-10-6954 NoteRight Eye Reliability was good. Progression has been stable. Foveal threshold was normal. Findings include normal observations. Left Eye Reliability was good. Progression has been stable. Foveal threshold was normal. Findings include normal observations.Tenet St. LouisWbpzgcolma22-86-2760 History of Present illness Narrative* Ramon Thomsonpilocristela, DO - 07/31/2024 9:45 AM EDT Images from [...] above evaluations. This will be adjusted to o6epihay when deemed necessary due to macular risk [...] laser capsulotomy, they are to notify their culinary internship promptly if they have a significant change in symptoms, such as flashes of light (photopsia), an increase in floaters, loss of visual field or decrease in visual acuity. Blepharitis of upper and lower eyelids of both eyes, unspecified type - Blepharitis, posterior type OU - The patient exhibits inspissated meibomian glands. Warm compresses, lid massage and lid scrubs were recommended. documented in this encounterTenet St. LouisBlpfnuzryl74-56-6205 Telephone encounter Note* Telephone Encounter - Elie Harper DPM - 07/30/2024 1:12 PM EDT done [facility] LouisTmttmglrrq31-04-1966 Miscellaneous Notes* Telephone Encounter - Elie Harper DPM - 07/30/2024 1:12 PM EDT done * Telephone Encounter - Taylor Ferro - 07/30/2024 1:03 PM EDT Pt called stating her ingrown toenail is still infected, asking if she can get another antibiotic? Send to [facility] in [place] please She is scheduled this in [place] documented in this encounterTenet St. LouisOsowvxuaoz27-90-6980 Telephone encounter Note* Telephone Encounter - Taylor Ferro - 07/30/2024 1:03 PM EDT Pt called stating her ingrown toenail is still infected, asking if she can get another antibiotic? Send to [facility] in [place] please She is scheduled this in [place] [facility] LouisOcdlougxxh74-22-9899 History of Present illness Narrative* Magalie Kaufman [...] were sterilized with 70% isopropanol. Lot # [id number] Expiration:08/2026 Dilution Per 100 units diluted with 1mL of 0.9% Sodium Chloride Procedure Right superior Lateral orbicularis oculi 7.5 units Right lateral orbicularis oculi 7.5 units Right inferior lateral orbicularis oculi 7.5 units Right inferior orbicularis oculi medial 2.5 units Right superior medial orbicularis oculi 2.5 units Right oxygen plant operator 2.5 units Right masseter 5+10+5 units Right [...] when to seek emergent treatment. Procedure Codes 67393 Chemodenervation of facial muscle J0585 Botulinum toxin a per unit, Units: Follow Up 3 months Botox documented in this encounterTenet St. LouisPxssdftxrb03-48-7965 History of Present illness Narrative* Elie Harper [...] discussion of possible surgical intervention by her door slinger who has since retired. She states diminished [...] region, without neurogenic claudication Spondylolisthesis Trigeminal neuralgia ([facility]) Medications: Current Outpatient Medications: acetaminophen (Tylenol 8 [...] mouth in the morning., Disp: , Rfl: Xnvffhsfnvh-Eavaasldy-Kvr C-Mn (Glucosamine 1500 Complex) capsule, as directed [...] Insecurity: No Food Insecurity (11/29/2023) Received from [facility], [facility] Hunger Vital Sign Worried About Running Out of Food in the Last Year: Never true Ran Out of Food in the Last Year: Never true Transportation Needs: No Transportation Needs (11/29/2023) Received from [facility], [facility] PRAPARE - Transportation Lack of Transportation (Medical): No Lack of Transportation (Non-Medical): No Physical Activity: Not on file Stress: Not on file Social Connections: Not on file Intimate Partner Violence: Not on file Housing Stability: Low Risk (11/29/2023) Received from [facility], [facility] Housing Stability Vital Sign Unable to [...] today Elie Harper DPM documented in this encounterTenet St. LouisZaphpfvvvj23-48-1832 History of Present illness Narrative* Gaby Christianson [...] rest and non weightbearing. She resided at [facility] from 12/02/2023 to 06/06/2024 for postoperative [...] Sister Anh Yadira Cancer Mother's Sister Kelsie Walker Cataracts Mother's Sister Bertha Walker Stroke Mother's Sister Bertha Walker Cancer Maternal Grandfather Josiah Denise Heart disease [...] wrist extensors , wrist flexor , and hematology nurse strength 5/5. LUE strength deltoid , biceps , triceps , wrist extensors , wrist flexor , and hematology nurse strength 5/5. RLE strength iliopsoas, quadriceps, tibialis [...] reflex 0. LLE Knee reflex 0. Coordination: Nvqumd-jq-ermy testing normal. Rapid alternating movements are normal. Gait: Steady. Utilizing walker. Review and summary of old records: MRI of the lumbar spine at the [facility] on 04/01/21: Posterior decompression and [...] NP [facility] documented in this encounterTenet St. LouisHknvqqenna01-39-2161 History of Present illness Narrative* Elie Harper [...] discussion of possible surgical intervention by her door slinger who has since retired. She states diminished [...] Peripheral neuropathy Polyneuropathy PVD (peripheral vascular disease) ([facility]) Radiculopathy, lumbosacral region Small fiber neuropathy [...] mouth in the morning., Disp: , Rfl: Ylwsttetkzb-Udbekrrui-Hgn C-Mn (Glucosamine 1500 Complex) capsule, as directed [...] Insecurity: No Food Insecurity (11/29/2023) Received from [facility], [facility] Hunger Vital Sign Worried About Running Out of Food in the Last Year: Never true Ran Out of Food in the Last Year: Never true Transportation Needs: No Transportation Needs (11/29/2023) Received from [facility], [facility] PRAPARE - Transportation Lack of Transportation (Medical): No Lack of Transportation (Non-Medical): No Physical Activity: Not on file Stress: Not on file Social Connections: Not on file Intimate Partner Violence: Not on file Housing Stability: Low Risk (11/29/2023) Received from [facility], [facility] Housing Stability Vital Sign Unable to [...] future Elie Harper DPM documented in this encounterTenet St. LouisGbehtcpawp54-56-9064 History of Present illness Narrative* Ashok Garcia [...] 05/31/2024 9:39 AM Patient: Danyelle Haskins MR#: [id number] : 1955 Age: 68 y.o. Referring Physician: [...] W/ IMPLANT (ECCE IOL) Bilateral 2018 [facility] TREATMENT OPEN PATELLAR FX W/ [...] times daily October 01, 2020 10:38am 10-01-2020 [facility] ([id number]) Docusate 100 MG capsule Take 1 capsule by mouth 2 times daily. 60 capsule 0 Doxazosin 4 MG tablet Take 1 tablet by mouth daily. Folic acid 1 MG tablet Take 1 tablet by mouth daily. Gvhwegfimxg-Zjnjpvkgg-Hnf C-Mn (Glucosamine 1500 Complex) capsule Take by [...] times daily October 01, 2020 10:38am 10-01-2020 [facility] ([id number]), Disp: , Rfl: Docusate 100 MG capsule, Take 1 capsule by mouth 2 times daily., Disp: 60 capsule, Rfl: 0 Doxazosin 4 MG tablet, Take 1 tablet by mouth daily., Disp: , Rfl: Folic acid 1 MG tablet, Take 1 tablet by mouth daily., Disp: , Rfl: Cxwchfcemaj-Mpgcewlub-Pdt C-Mn (Glucosamine 1500 Complex) capsule, Take by [...] HPI: Danyelle is an established patient of [facility]. She is here today for a 6 [...] Laterality: Right; Surgeon: New Mcclure MD; Location: [facility] OR REVISION ARTHROPLASTY KNEE Left 11/21/2018 Laterality: Left; Surgeon: New Mcclure MD; Location: [facility] OR EXTRACTION EXTRACAPSULAR CATARACT W/ IMPLANT (ECCE IOL) Bilateral 2018 [facility] TREATMENT OPEN PATELLAR FX W/ [...] times daily October 01, 2020 10:38am 10-01-2020 [facility] ([id number]), Disp: , Rfl: Docusate 100 MG capsule, Take 1 capsule by mouth 2 times daily., Disp: 60 capsule, Rfl: 0 Doxazosin 4 MG tablet, Take 1 tablet by mouth daily., Disp: , Rfl: Folic acid 1 MG tablet, Take 1 tablet by mouth daily., Disp: , Rfl: Hykfylxnrio-Anggpouqn-Cjn C-Mn (Glucosamine 1500 Complex) capsule, Take by [...] Sulfamethoxazole Weakness Trimethoprim Weakness documented [facility] this [facility] History of Present illness Narrative* Dory Jared - 04/19/2024 10:00 AM EDT Ortho Nurse - Established Patient Intake Room#: 2 Pt is here for B/L knee. Pt is not in any pain. No falls, or injury's. Date: 04/19/2024 10:14 AM Patient: Danyelle Haskins MR#: [id number] : 1955 Age: 68 y.o. Referring Physician: [...] W/ IMPLANT (ECCE IOL) Bilateral 2018 [facility] TREATMENT OPEN PATELLAR FX W/ [...] times daily October 01, 2020 10:38am 10-01-2020 [facility] ([id number]) Docusate 100 MG capsule Take 1 capsule by mouth 2 times daily. 60 capsule 0 Doxazosin 4 MG tablet Take 1 tablet by mouth daily. Folic acid 1 MG tablet Take 1 tablet by mouth daily. Wshfveuezvq-Ljmicfyyh-Wzg C-Mn (Glucosamine 1500 Complex) capsule Take by [...] times daily October 01, 2020 10:38am 10-01-2020 [facility] ([id number]), Disp: , Rfl: Docusate 100 MG capsule, Take 1 capsule by mouth 2 times daily., Disp: 60 capsule, Rfl: 0 Doxazosin 4 MG tablet, Take 1 tablet by mouth daily., Disp: , Rfl: Folic acid 1 MG tablet, Take 1 tablet by mouth daily., Disp: , Rfl: Wlgdudznttc-Kdltovezt-Dla C-Mn (Glucosamine 1500 Complex) capsule, Take by [...] of mine. She is here today for followup. She [...] W/ IMPLANT (ECCE IOL) Bilateral 2018 [facility] TREATMENT OPEN PATELLAR FX W/ [...] times daily October 01, 2020 10:38am 10-01-2020 [facility] ([id number]), Disp: , Rfl: Docusate 100 MG capsule, Take 1 capsule by mouth 2 times daily., Disp: 60 capsule, Rfl: 0 Doxazosin 4 MG tablet, Take 1 tablet by mouth daily., Disp: , Rfl: Folic acid 1 MG tablet, Take 1 tablet by mouth daily., Disp: , Rfl: Aymjkgiwkjo-Kmdbagobh-Woy C-Mn (Glucosamine 1500 Complex) capsule, Take by [...] Sulfamethoxazole Weakness Trimethoprim Weakness documented in this encounterPrem[facility]05-16-[facility] History of Present illness Narrative* Dania Virkair - 03/22/2024 3:30 PM EDT Ortho Nurse [...] 03/22/2024 3:49 PM Patient: Danyelle Haskins MR#: [id number] : 1955 Age: 68 y.o. Referring Physician: [...] W/ IMPLANT (ECCE IOL) Bilateral 2018 [facility] TREATMENT OPEN PATELLAR FX W/ INTERNAL FIXATION OR PATELLECTOMY Left 07/18/2017 Laterality: Left; Surgeon: New Mcclure MD; Location: [facility] OR PATELLECTOMY/HEMIPATELLECTOMY Left 07/18/2017 Laterality: Left; [...] times daily October 01, 2020 10:38am 10-01-2020 [facility] ([id number]) Docusate 100 MG capsule Take 1 capsule by mouth 2 times daily. 60 capsule 0 Doxazosin 4 MG tablet Take 1 tablet by mouth daily. Folic acid 1 MG tablet Take 1 tablet by mouth daily. Pkybhgtwvjf-Iihmgwhzl-Kjc C-Mn (Glucosamine 1500 Complex) capsule Take by [...] HPI: Danyelle is an established patient of [facility]. She is here today for followup. She [...] have reviewed the findings of the clinical sales support specialist and agree with their assessment. [...] 03/22/2024 3:49 PM Patient: Danyelle Haskins MR#: [id number] : 1955 Age: 68 y.o. Referring Physician: [...] W/ IMPLANT (ECCE IOL) Bilateral 2018 [facility] TREATMENT OPEN PATELLAR FX W/ [...] times daily October 01, 2020 10:38am 10-01-2020 [facility] ([id number]) Docusate 100 MG capsule Take 1 capsule by mouth 2 times daily. 60 capsule 0 Doxazosin 4 MG tablet Take 1 tablet by mouth daily. Folic acid 1 MG tablet Take 1 tablet by mouth daily. Lxfrxhxwvcn-Metejopjh-Egk C-Mn (Glucosamine 1500 Complex) capsule Take by [...] bactrim [sulfamethoxazole-trimethoprim], and levofloxacin. documented in this encounterPremier [facility]04-18-2024 History of Present illness Narrative* Allison Ariza - 02/23/2024 11:00 AM EDT Ortho Nurse - Established Patient Intake Room#: 4 Date: 02/23/2024 11:05 AM Patient: Danyelle Haskins MR#: [id number] : 1955 Age: 68 y.o. 4M L [...] W/ IMPLANT (ECCE IOL) Bilateral 2018 [facility] TREATMENT OPEN PATELLAR FX W/ [...] times daily October 01, 2020 10:38am 10-01-2020 [facility] ([id number]) Docusate 100 MG capsule Take 1 capsule by mouth 2 times daily. 60 capsule 0 Doxazosin 4 MG tablet Take 1 tablet by mouth daily. Folic acid 1 MG tablet Take 1 tablet by mouth daily. Zanycmpqrje-Plkfxthai-Xvr C-Mn (Glucosamine 1500 Complex) capsule Take by [...] times daily October 01, 2020 10:38am 10-01-2020 [facility] ([id number]), Disp: , Rfl: Docusate 100 MG capsule, Take 1 capsule by mouth 2 times daily., Disp: 60 capsule, Rfl: 0 Doxazosin 4 MG tablet, Take 1 tablet by mouth daily., Disp: , Rfl: Folic acid 1 MG tablet, Take 1 tablet by mouth daily., Disp: , Rfl: Hjqampkgnwi-Gdiaelygc-Ggj C-Mn (Glucosamine 1500 Complex) capsule, Take by [...] bactrim [sulfamethoxazole-trimethoprim], and levofloxacin. * Rajinder Green APRN-METAL CAN INSPECTOR - 02/23/2024 11:00 AM EDT SUBJECTIVE: Danyelle is an established patient of [facility]. She is here today for followup. She [...] up in 4 weeks, sooner as needed. ([id number]) I have reviewed the findings of the clinical sales support specialist and agree with their assessment. Rajinder Green APRN-MARTY Ortho Nurse - Established Patient Intake Room#: 4 Date: 02/23/2024 11:05 AM Patient: Danyelle Haskins MR#: [id number] : 1955 Age: 68 y.o. 4M L [...] W/ IMPLANT (ECCE IOL) Bilateral 2018 [facility] TREATMENT OPEN PATELLAR FX W/ [...] times daily October 01, 2020 10:38am 10-01-2020 [facility] ([id number]) Docusate 100 MG capsule Take 1 capsule by mouth 2 times daily. 60 capsule 0 Doxazosin 4 MG tablet Take 1 tablet by mouth daily. Folic acid 1 MG tablet Take 1 tablet by mouth daily. Agmdtkjbzjl-Jvmcswvkn-Ekn C-Mn (Glucosamine 1500 Complex) capsule Take by [...] times daily October 01, 2020 10:38am 10-01-2020 [facility] ([id number]), Disp: , Rfl: Docusate 100 MG capsule, Take 1 capsule by mouth 2 times daily., Disp: 60 capsule, Rfl: 0 Doxazosin 4 MG tablet, Take 1 tablet by mouth daily., Disp: , Rfl: Folic acid 1 MG tablet, Take 1 tablet by mouth daily., Disp: , Rfl: Yhaihipnsov-Hoeggpypq-Oye C-Mn (Glucosamine 1500 Complex) capsule, Take by [...] bactrim [sulfamethoxazole-trimethoprim], and levofloxacin. [facility] History of Present illness Narrative* Denise Miguel Angel - 01/12/2024 1:00 PM EST Ortho Nurse [...] 01/12/2024 1:03 PM Patient: Danyelle Haskins MR#: [id number] : 1955 Age: 68 y.o. Referring Physician: [...] W/ IMPLANT (ECCE IOL) Bilateral 2018 [facility] TREATMENT OPEN PATELLAR FX W/ [...] times daily October 01, 2020 10:38am 10-01-2020 [facility] ([id number]) Docusate 100 MG capsule Take 1 capsule by mouth 2 times daily. 60 capsule 0 Doxazosin 4 MG tablet Take 1 tablet by mouth daily. Folic acid 1 MG tablet Take 1 tablet by mouth daily. Qlfppixtlin-Tfnvvwctg-Esy C-Mn (Glucosamine 1500 Complex) capsule Take by [...] a call from [facility] on 12/30/23 stating patient suffered [...] have reviewed the findings of the clinical sales support specialist and agree with their assessment. [...] 01/12/2024 1:03 PM Patient: Danyelle Haskins MR#: [id number] : 1955 Age: 68 y.o. Referring Physician: [...] W/ IMPLANT (ECCE IOL) Bilateral 2018 [facility] TREATMENT OPEN PATELLAR FX W/ [...] times daily October 01, 2020 10:38am 10-01-2020 [facility] ([id number]) Docusate 100 MG capsule Take 1 capsule by mouth 2 times daily. 60 capsule 0 Doxazosin 4 MG tablet Take 1 tablet by mouth daily. Folic acid 1 MG tablet Take 1 tablet by mouth daily. Kxshildgcew-Heisjtajw-Pgc C-Mn (Glucosamine 1500 Complex) capsule Take by [...] bactrim [sulfamethoxazole-trimethoprim], and levofloxacin. documented in this [facility] History of Present illness Narrative* Shayla Garza [...] no MEDICAL CLEARANCE, CARDIOLOGY CLEARANCE [place]oy 11/11 0431 DIFFICULT IV PLACEMENT Butterfly use in the [...] TRANSFUSION/REACTION Yes, no adverse reaction. CULTURAL OR PENTECOSTAL BELIEFS THAT WILL AFFECT CARE no DIETARY RESTRICTIONS no CONCERNS FOR PERSONAL SAFETY no Have you been diagnosed with a concussion in the past 6 months? no Have you tested positive for COVID 19? (if pt does breathing is not back to baseline please order CXR) No Have you had your COVID vaccination? no ADVANCE DIRECTIVES Yes, on file with [employer] IF PATIENT HAS NOT BEEN DIAGNOSED WITH [...] gait steady with walker. documented in this encounterPrem[facility]12-28-[facility]23 Instructions* Patient Instructions* Everton Ball RN - 11/03/2023 10:[address] Mcclure's office will call you for your arrival time, 1-2 business days before your scheduled surgery. Please review your surgery checklist and bring your guide or booklet the day of surgery. Pre-Admission Testing Dept. [phone] Call if you have any changes in [...] for the hospital. DIRECTIONS: Park in the [facility] facing [address]. Enter through the front entrance and sign in at the Registration Desk at the [facility]. Thank you for allowing us the privilege [...] Yellow - take the day of surgery [place] - hold according to the doctor's instructions [...] times daily October 01, 2020 10:38am 10-01-2020 [facility] ([id number]) STOP 7 DAYS BEFORE YOUR SURGERY LAST DOSE: DATE TIME Doxazosin 4 MG tablet 4 mg, Oral, DAILY STOP TAKING 24 hours BEFORE YOUR SURGERY Last Dose: Date Time Folic acid 1 MG tablet 1,000 mcg, Oral, DAILY CONTINUE, but DO NOT take the morning of surgery. Last Dose: Date Time Keisbelfbje-Fcitwvqkc-Rrf C-Mn (Glucosamine 1500 Complex) capsule Oral, DAILY [...] Last Dose: Date Time documented in this [facility]12-28-2023 Miscellaneous Notes* Addendum Note - Everton Ball RN - 11/03/2023 10:00 AM ESTAddended by: EVERTON BALL on: 10/27/2023 10:19 AM Modules accepted: Orders * Addendum Note - Everton Ball RN - 11/03/2023 10:00 AM ESTAddended by: EVERTON BALL on: 11/01/2023 01:36 PM Modules accepted: Orders documented in this [facility]12-28-2023 Note* Addendum Note - Everton Ball RN - 11/03/2023 10:00 AM ESTAddended by: EVERTON BALL on: 10/27/2023 10:19 AM Modules accepted: Orders [facility]12-28-2023 Note* Addendum Note - Everton Ball RN - 11/03/2023 10:00 AM ESTAddended by: EVERTON BALL on: 11/01/2023 01:36 PM Modules accepted: Orders [facility]10-26-[facility] History of Present illness Narrative* Denise Michelle [...] 09/01/2023 1:06 PM Patient: Danyelle Haskins MR#: [id number] : 1955 Age: 68 y.o. Referring Physician: [...] W/ IMPLANT (ECCE IOL) Bilateral 2017 [facility] TREATMENT OPEN PATELLAR FX W/ [...] times daily October 01, 2020 10:38am 10-01-2020 [facility] ([id number]) Doxazosin 4 MG tablet Take 1 tablet [...] today to further discuss surgicalinterventions for optimal retirement management. Patient is also here today for [...] a left total knee revision for optimal retirement management. We have discussed in great detail [...] nasal MRSA screening, scheduling an appointment for [facility] and the potential surgical date, and reviewing and signing the consentforms. I have reviewed the findings of the clinical sales support specialist and agree with their assessment. Ortho Nurse - Established Patient Intake Room#: 1 ----- 4 month f\u R TKR and is doing great. Also concerned about left knee and that it keeps slipping out of place. No pain with the knee just instability and would like it looked at again. Date: 09/01/2023 1:06 PM Patient: Danyelle Haskins MR#: [id number] : 1955 Age: 68 y.o. Referring Physician: [...] W/ IMPLANT (ECCE IOL) Bilateral 2018 [facility] TREATMENT OPEN PATELLAR FX W/ [...] times daily October 01, 2020 10:38am 10-01-2020 [facility] ([id number]) Doxazosin 4 MG tablet Take 1 tablet [...] bactrim [sulfamethoxazole-trimethoprim], and levofloxacin. documented in this encounterPrem[facility]07-13-[facility] History of Present illness Narrative* Marcie Lantigua LPN - 05/19/2023 2:40 PM EDT Ortho Nurse - Established Patient Intake Room#: 5 Date: 05/19/2023 2:43 PM Patient: Danyelle Haskins MR#: [id number] : 1955 Age: 67 y.o. 3 wks [...] W/ IMPLANT (ECCE IOL) Bilateral 2017 [facility] TREATMENT OPEN PATELLAR FX W/ [...] times daily October 01, 2020 10:38am 10-01-2020 [facility] ([id number]) Docusate 100 MG capsule Take 1 capsule [...] times daily October 01, 2020 10:38am 10-01-2020 [facility] ([id number]), Disp: , Rfl: Docusate 100 MG capsule, [...] bactrim [sulfamethoxazole-trimethoprim], and levofloxacin. * Rajinder Green APRN-MARTY - 05/19/2023 2:40 PM EDT HPI: Danyelle [...] mesh. All pertinent portions of the clinical sales support specialist documentation was reviewed and agree. EFREN Logan Ortho Nurse - Established Patient Intake Room#: 5 Date: 05/19/2023 2:43 PM Patient: Danyelle Haskins MR#: [id number] : 1955 Age: 67 y.o. 3 wks [...] W/ IMPLANT (ECCE IOL) Bilateral 2018 [facility] TREATMENT OPEN PATELLAR FX W/ [...] times daily October 01, 2020 10:38am 10-01-2020 [facility] ([id number]) Docusate 100 MG capsule Take 1 capsule [...] times daily October 01, 2020 10:38am 10-01-2020 [facility] ([id number]), Disp: , Rfl: Docusate 100 MG capsule, [...] bactrim [sulfamethoxazole-trimethoprim], and levofloxacin. documented in this encounterPrem[facility]10-25-[facility]21 Evaluation note* Encounter Date Diagnosis Assessment Notes [...] management and focal injections would be appropriate. [facility] [facility] Other [id number] Note [id number]:[id number] 03-12-2021 NoteCystoscopy with Urethral Dilation [...] if you have a fever over 100 degreesSouthern [facility]05-05-2021 History of Present illness Narrative* [...] have reviewed the findings of the clinical sales support specialist and agree with their assessment. Ortho Nurse Established Patient Intake Room#: 3 F/U from PT, seen 11-19-20, left knee TKA 11-21-18 with extensor mechanism repair, states her pain is a 2 and she is doing much better Date: 03/11/2021 1:59 PM Patient: Danyelle Haskins MR#: [id number] : 1955 Age: 65 y.o. Referring Physician: [...] W/ IMPLANT (ECCE IOL) Bilateral 2018 [facility] TREATMENT OPEN PATELLAR FX W/ [...] mouth 3 times daily as needed. Biotin 58617 MCG Tab take 2 tablets by mouth 2 times daily.. Calcium Carb-Cholecalciferol (CALCIUM 600 + D) 600-200 MG-UNIT Tab tablet Take 2.5 tablets by mouthDaily (with lunch). Diclofenac Sodium 1 % Gel gel Diclofenac Diclofenac Sodium Active 4 GM Topical Four times daily October 01, 2020 10:38am 10-01-2020 [facility] ([id number]) ferrous sulfate 325 (65 Fe) MG Tab [...] as needed. , Disp: , Rfl: Biotin 11327 MCG Tab, take 2 tablets by mouth 2 times daily.. , Disp: , Rfl: Calcium Carb-Cholecalciferol (CALCIUM 600 + D) 600-200 MG-UNIT Tab tablet, Take 2.5 tablets by mouth Daily (with lunch). , Disp: , Rfl: Diclofenac Sodium 1 % Gel gel, Diclofenac Diclofenac Sodium Active 4 GM Topical Four times daily October 01, 2020 10:38am 10-01-2020 [facility] ([id number]), Disp: , Rfl: ferrous sulfate 325 (65 [...] 03/11/2021 1:59 PM Patient: Danyelle Haskins MR#: [id number] : 1955 Age: 65 y.o. Referring Physician: [...] W/ IMPLANT (ECCE IOL) Bilateral 2017 [facility] TREATMENT OPEN PATELLAR FX W/ INTERNAL FIXATION OR PATELLECTOMY Left 07/18/2017 Laterality: Left; Surgeon: New Mcculre MD; Location: [facility] OR PATELLECTOMY/HEMIPATELLECTOMY Left [...] mouth 3 times daily as needed. Biotin 45523 MCG Tab take 2 tablets by mouth 2 times daily.. Calcium Carb-Cholecalciferol (CALCIUM 600 + D) 600-200 MG-UNIT Tab tablet Take 2.5 tablets by mouthDaily (with lunch). Diclofenac Sodium 1 % Gel gel Diclofenac Diclofenac Sodium Active 4 GM Topical Four times daily October 01, 2020 10:38am 10-01-2020 [facility] ([id number]) ferrous sulfate 325 (65 Fe) MG Tab [...] as needed. , Disp: , Rfl: Biotin 80430 MCG Tab, take 2 tablets by mouth 2 times daily.. , Disp: , Rfl: Calcium Carb-Cholecalciferol (CALCIUM 600 + D) 600-200 MG-UNIT Tab tablet, Take 2.5 tablets by mouth Daily (with lunch). , Disp: , Rfl: Diclofenac Sodium 1 % Gel gel, Diclofenac Diclofenac Sodium Active 4 GM Topical Four times daily October 01, 2020 10:38am 10-01-2020 [facility] ([id number]), Disp: , Rfl: ferrous sulfate 325 (65 [...] oxcarbazepine; and bactrim [sulfamethoxazole-trimethoprim]. [facility]* Diagnosis Left knee pain, unspecified chronicity- Primary Right knee pain, unspecified chronicity [facility]* Diagnosis Hx of total knee arthroplasty, right- Primary documented in this [facility] noteNo assessment information availableBarnesville Hospital [facility]tr Work Phone: Evaluation note* Diagnosis Hx of total knee arthroplasty, right- Primary Hx of total knee arthroplasty, left [facility]* Diagnosis Preop testing- Primary Preoperative examination, unspecified Abnormal finding of blood chemistry, unspecified Abnormal coagulation profile Failed total left knee replacement, initial encounter documented [facility] encounter [facility] Diagnosis Pain in right knee Pain in joint, lower leg [facility]* Diagnosis Right knee pain, unspecified chronicity- Primary documented [facility]* Diagnosis Hx of total knee arthroplasty, left- Primary [facility]* Diagnosis Pain in both knees, unspecified chronicity- Primary [facility]* Diagnosis Pain in both knees, unspecified chronicity- Primary [facility]* Diagnosis Pain in both knees, unspecified chronicity- Primary [facility]* Diagnosis Abscess of toe, right- Primary Acquired deformity of left toe documented in this encounter [facility]* Diagnosis Pain due to onychomycosis of toenails of both feet- Primary Acquired deformity of left toe documented in this encounter [facility]* Diagnosis Polyneuropathy- Primary Unspecified hereditary and idiopathic peripheral neuropathy Spinal stenosis of lumbar region, unspecified whether neurogenic claudication present Degenerative disc disease, lumbar documented in this encounter [facility]* Diagnosis Spinal stenosis of lumbar region, unspecified whether neurogenic claudication present- Primary Degenerative disc disease, lumbar Facet arthritis of lumbar region Blepharospasm Polyneuropathy Unspecified hereditary and idiopathic peripheral neuropathy Paresthesias Disturbance of skin sensation documented in this encounter [facility]* Diagnosis Paresthesias- Primary Disturbance of [...] of skin sensation documented in this encounter [facility]* Diagnosis Acquired deformity of left toe- Primary Onychomycosis Dermatophytosis of nail Toe pain, bilateral documented in this encounter [facility]* Diagnosis Spinal stenosis of lumbar region, unspecified whether neurogenic claudication present- Primary Paresthesias Disturbance of skin sensation documented in this encounter [facility]* Diagnosis Onychocryptosis- Primary Ingrowing nail Toe pain, right Pain in soft tissues of limb Abscess of toe, right documented in this encounter [facility]* Diagnosis 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 documented in this encounter [facility]* Diagnosis Abscess of toe, right Onychocryptosis- Primary Ingrowing nail Toe pain, right Pain in soft tissues of limb Abscess of toe, right Acquired deformity of left toe documented in this encounter [facility]* Diagnosis Long-term use of hydroxychloroquine- [...] of left toe documented in this encounter [facility]* Diagnosis Onychocryptosis- Primary Ingrowing nail Toe pain, right Pain in soft tissues of limb Abscess of toe, right Acquired deformity of left toe documented in this encounter [facility]* Diagnosis Acquired deformity of left toe- Primary Pain due to onychomycosis of toenails of both feet documented in this encounter [facility]* Diagnosis Pain in left knee- [...] knee arthroplasty, right [facility] Diagnosis Spinal stenosis of lumbar region, unspecified whether neurogenic claudication present- Primary Degeneration of intervertebral disc of lumbar region with discogenic back pain Facet arthritis of lumbar region Blepharospasm Polyneuropathy Unspecified hereditary and idiopathic peripheral neuropathy Carpal tunnel syndrome on both sides Carpal tunnel syndrome documented in this encounter [facility]* Diagnosis Cellulitis of left foot- Primary Acquired deformity of left toe documented in this encounter [facility]* Diagnosis Cellulitis of left foot- Primary Acquired deformity of left toe Foot ulcer, left, with fat layer exposed (CMS/HCC) Other polyneuropathy documented in this encounter [facility]* Diagnosis Cellulitis of left foot- Primary Acquired deformity of left toe Foot ulcer, left, with fat layer exposed (CMS/HCC) Other polyneuropathy documented in this encounter [facility]* Diagnosis Paresthesias Disturbance of skin sensation Spinal stenosis of lumbar region, unspecified whether neurogenic claudication present documented in this encounter [facility]* Diagnosis Acquired deformity of left toe- Primary Other polyneuropathy documented in this encounter [facility]* Diagnosis Acquired deformity of left toe- Primary Other polyneuropathy documented in this encounter [facility]* Diagnosis Paresthesias Disturbance of skin sensation Spinal stenosis of lumbar region, unspecified whether neurogenic claudication present documented in this encounter [facility]* Diagnosis Pain due to onychomycosis of toenails of both feet- Primary documented in this encounter [facility]* Diagnosis Onset Date Resolution Status Admit Date Blepharospasm chronicJune 2024 9:33amCarpal tunnel syndrome, bilateralchronicJune 2024 9:33amDDD (degenerative disc disease), lumbarchronicJune 2024 9:33am Facet arthritis of lumbar regionchronicJune 2024 9:33amPolyneuropathy chronicJune 2024 9:33amSpinal stenosis of lumbar regionchronicJune 2024 9:33am [facility] Work Phone: Evaluation note* Diagnosis Intermediate stage nonexudative age-related macular degeneration of both eyes- Primary Long-term use of hydroxychloroquine documented in this encounter [facility]* Diagnosis Pain due to onychomycosis of toenails of both feet- Primary documented in this encounter [facility]* Diagnosis Other polyneuropathy- Primary Pain due to onychomycosis of toenails of both feet documented in this encounter [facility] HealthcareHistory general Narrative - Reported* Type Description Date Medical History connective tissue disease Medical HistoryArthritisMedical Historyspinal compressionSurgical Historyback surgerySurgical Historyganglion cystSurgical HistorytonsillectomySurgical HistoryhysterectomySurgical Historytendon repairSurgical Historywrist surgery Surgical Historycataracts, bilaterallySurgical HistoryAbdominal Ablation Hospitalization Historysee surgical [facility] Other reason for referral (narrative)* Consultation (Routine) - Patient to ArrangeSpecialtyDiagnoses / ProceduresReferred By ContactReferred To ContactPhysical Therapy Diagnoses Pain in both knees, unspecified chronicity New Mcclure MD [address] [place] [address] Referral IDStatusReasonStart DateExpiration DateVisits RequestedVisits [id number] to Arrange/ Scheduling Instructions . [facility] for referral (narrative)No reason for referral information availableC[facility] Work Phone: Summary Purpose Family History [...] 2:46 PMCode StatusDate ActivatedDate InactivatedCommentsFull Code07/18/2017 4:04 07/21/2017 7:25 PMCode StatusDate ActivatedDate InactivatedCommentsFull Code04/26/2023 2:32 PMCode StatusDate ActivatedDate InactivatedCommentsFull Code11/21/2018 2:46 PM04/26/2023 2:32 PMFull Code07/18/2017 4:04 07/21/2017 7:25 PMCode StatusDate ActivatedDate InactivatedCommentsFull Code11/29/2023 5:14 PMCode StatusDate ActivatedDate InactivatedCommentsFull Code04/26/2023 2:32 PM11/29/2023 5:14 PMFull Code11/21/2018 2:46 PM04/26/2023 2:32 PMFull Code07/18/2017 4:04 07/21/2017 7:25 PMDate ActivatedDate InactivatedComments11/29/2023 5:14 PMDate ActivatedDate [...] Date/ Time Advance Directives No September 12:45pm Advance Directive Response Recorded Date/ Time Advance Directives No September 11:45am Reason for Referral StatusReasonSpecialtyDiagnoses / ProceduresReferred By ContactReferred To ContactNew Request Diagnoses Pre-op exam Procedures ECG New Mccluer MD [address] [id number] StatusReasonSpecialtyDiagnoses / ProceduresReferred By ContactReferred To ContactNew Request Procedures ACTIVITY TOLERATED Rajinder Green APRN-CNP [address] [place], [place] [id number] StatusReasonSpecialtyDiagnoses / ProceduresReferred By ContactReferred To Contact Rajinder Green APRN-CNP [address] [place], [place] [id number] StatusReasonSpecialtyDiagnoses / ProceduresReferred By ContactReferred To ContactNew Request Diagnoses Hx of total knee arthroplasty, left Procedures XR KNEE LEFT 2 VIEWS XR KNEE LEFT 3 VIEWS Rajinder Green APRN-CNP [address] [place] [address] StatusReasonSpecialtyDiagnoses / ProceduresReferred By ContactReferred To ContactNew RequestPhysical Therapy Diagnoses History of total knee arthroplasty, left Right hip pain New Mcclure MD [address] [place], [place] [id number] Scheduling Instructions . StatusReasonSpecialtyDiagnoses / ProceduresReferred By ContactReferred To ContactSchedule Outgoing - Transfer of CarePhysical Therapy Diagnoses History of total knee arthroplasty, left New Mcclure MD [address] [place], [place] [id number] StatusReasonSpecialtyDiagnoses / ProceduresReferred By ContactReferred To ContactNew Request Diagnoses Right hip pain Procedures XR HIP WITH PELVIS RIGHT New Mcclure MD [address] [place], [place] [id number] StatusReasonSpecialtyDiagnoses / ProceduresReferred By ContactReferred To ContactNew RequestSports Ortho and Primary Care Sports Diagnoses Right hip pain New Mcclure MD [address] [place], [place] [phone] StatusReasonSpecialtyDiagnoses / ProceduresReferred By ContactReferred To ContactNew Request Diagnoses Right knee pain, unspecified chronicity Procedures LARGE JOINT INJECTION: R knee New Mcclure MD [address] [place], [place] [phone] StatusReasonSpecialtyDiagnoses / ProceduresReferred By ContactReferred To ContactNew Request Diagnoses Left knee pain, unspecified chronicity Procedures XR KNEE LEFT 2 VIEWS XR KNEE LEFT 3 VIEWS New Mcclure MD [address] [place], [place] [phone] StatusReasonSpecialtyDiagnoses / ProceduresReferred By ContactReferred To ContactPending Review Diagnoses History of total knee arthroplasty, left Procedures XR KNEE LEFT 3 VIEWS New Mcclure MD [address] [place], [place] [address] StatusReasonSpecialtyDiagnoses / ProceduresReferred By ContactReferred To ContactPatient to ArrangePhysical Therapy Diagnoses Pain in prosthetic joint, initial encounter New Mcclure MD [address] [place], [place] [phone] StatusReasonSpecialtyDiagnoses / ProceduresReferred By ContactReferred To ContactNew Request Diagnoses Hx of total knee arthroplasty, left Procedures XR KNEE LEFT 3 VIEWS New Mcclure MD [address] [place], [place] [phone] StatusReasonSpecialtyDiagnoses / ProceduresReferred By ContactReferred To ContactPatient to ArrangePhysical Therapy Diagnoses History of total knee arthroplasty, left New Mcclure MD [address] [place], [place] [phone] SpecialtyDiagnoses / ProceduresReferred By ContactReferred To Contact Diagnoses Hx of total knee arthroplasty, right Procedures XR KNEE RIGHT 3 VIEWS Rajinder Green, BATCH AND FURNACE MANAGER-METAL CAN INSPECTOR [address] [place], [place] [address] Referral IDStatusReasonStart DateExpiration DateVisits RequestedVisits [id number] / Procedures Referred By ContactReferred To Contact Diagnoses Hx of total knee arthroplasty, right Procedures XR BONE LENGTH STUDY New Mcclure MD [address] [place], [place] [phone] Referral IDStatusReasonStart DateExpiration DateVisits RequestedVisits [id number] [id number] / ProceduresReferred By ContactReferred To Contact Diagnoses Hx of total knee arthroplasty, right Procedures XR KNEE RIGHT 3 VIEWS New Mcclure MD [address] [place], [place] [phone] Referral IDStatusReasonStart DateExpiration DateVisits RequestedVisits [id number] Alraiie74/[id number] / ProceduresReferred By ContactReferred To Contact Diagnoses Hx of total knee arthroplasty, left Procedures XR KNEE LEFT 3 VIEWS New Mcclure MD [address] [place], [place] [phone] Referral IDStatusReasonStart DateExpiration DateVisits RequestedVisits [id number] / ProceduresReferred By ContactReferred To Contact Diagnoses Preop testing Procedures PREPARE TO TRANSFUSE RED BLOOD CELLS New Mcclure MD [address] [place], [place] [address] Referral IDStatusReasonStart DateExpiration DateVisits RequestedVisits [id number] [id number] / ProceduresReferred By ContactReferred To Contact Diagnoses Preop testing Procedures ECG New Mcclure MD [address] [place] [address] Referral IDStatusReasonStart DateExpiration DateVisits RequestedVisits [id number] [id number] / ProceduresReferred By ContactReferred To Contact Diagnoses Right knee pain, unspecified chronicity Procedures XR KNEE RIGHT 3 VIEWS New Mcclure MD [address] [place], [place] [phone] Referral IDStatusReasonStart DateExpiration DateVisits RequestedVisits [id number] Request/[id number] / Procedures Referred By ContactReferred To Contact Diagnoses Hx of total knee arthroplasty, left Procedures XR KNEE LEFT 1-2 VIEWS XR KNEE LEFT 3 VIEWS Rajinder Green APRN-CNP [address] [place], [place] [phone] Referral IDStatusReasonStart DateExpiration DateVisits RequestedVisits [id number] [id number] / Procedures Referred By ContactReferred To Contact Diagnoses Hx of total knee arthroplasty, left Procedures XR BONE LENGTH STUDY Rajinder GreenEFREN [address] [place] [address] Referral IDStatusReasonStart DateExpiration DateVisits RequestedVisits [id number] [id number] / Procedures Referred By ContactReferred To Contact Diagnoses Polyneuropathy Spinal stenosis of lumbar region, unspecified whether neurogenic claudication present Degenerative disc disease, lumbar Gaby Christianson, HARPAL [address] [facility] [address] [place] [phone] Referral IDStatusReasonStart DateExpiration DateVisits RequestedVisits [id number] Review/[id number] / ProceduresReferred By ContactReferred To ContactPhysical Therapy Diagnoses Hx of total knee arthroplasty, left Hx of total knee arthroplasty, right New Mcclure MD [address] [place] [address] Referral IDStatusReasonStart DateExpiration DateVisits RequestedVisits [id number] Request/[id number] / Procedures Referred By ContactReferred To Contact Diagnoses Hx of total knee arthroplasty, right Procedures XR KNEE RIGHT 1-2 VIEWS XR KNEE RIGHT 3 VIEWS New Mcclure MD [address] [place] [address] Referral IDStatusReasonStart DateExpiration DateVisits RequestedVisits [id number] Request/[id number] IDStatusReasonStart DateExpiration DateVisits RequestedVisits [id number] Request11/26/2024 Instructions * Patient Instructions - Everton Ball RN - 10/13/2018 12:21 PM EST Formatting of this note may be different from the original. Genoveva from Dr Mcclure's office will call you for your arrival time, 1-2 business days before your scheduled surgery. Please review your surgery checklist and bring your Guide or binder the day of surgery. Pre-Admission Testing Dept. [phone] Call if you have any changes in [...] of surgery LAST DOSE: DATE TIME Biotin 53555 MCG Tab take 2 tablets by mouth [...] LAST DOSE: DATE TIME Hydroxychloroquine Sulfate (HYDROXYCHLOROQUINE, [id number],) 200 MG Tab Take 200 mg by [...] by patient in chart. in this encounter* Ronaldmarianne Darren, PT - 11/24/2018 1:41 PM EST Formatting of this note may be different from the original. 11/24/18 1100 Subjective RN Approved Intervention as tolerated Existing Precautions/Restrictions fall;weight bearing;other (see comments) (TTWB left LE, knee immobilizer to be worn at all times) Subjective Reports Patient reports feeling ready to go to [facility] later today Cognitive Status Examination Orientation [...] reach Communication Patient to discharge to [facility] later today Transfer Skill: Sit To Stand, Rehab Eval Phelps (Sit-Stand Transfers) supervision Physical Assist/Nonphysical Assist: Sit/Stand 1 person assist Weight-Bearing Restrictions: Sit/Stand toe touch weight-bearing Assistive Device For Transfer: Sit/Stand 2 wheeled walker Gait Skills, PT Eval Level of Phelps: Gait stand-by assist Weight-Bearing Restrictions: Gait toe touch weight-bearing Assistive Device For Transfer: Gait 2 wheeled walker Gait Distance other (see comments) (60 ft) Gait Analysis, PT Eval Gait Pattern Used swing-to gait Stair Negotiation Level of Phelps: Stair Negotiation unable to perform Clinical Impression [...] Transition of Care PATIENT: Danyelle Haskins Room/Bed: [facility] Apixaban (Eliquis) Education Patient was provided with [...] reported to their physicianor health child care development specialist as soon as possible. I also advised the patient to provide an updated medication list to all health anesthesiologist and critical care as certain medications can interact with apixaban. Patient verbally acknowledged an understanding of the information provided. Please contact pharmacyif there are any questions. Signed: Maryam Zapata RP,PharmD, [facility] Phone: [phone] Date/Time: 11/24/2018 1:26 PM * Krystal Bravo, [...] UE exercises Therapist Information License # [id number] * DavidTanvi Isra, METAL CAN INSPECTOR - 11/23/2018 1:43 PM EST Formatting of this note may be different from the original. DAILY PROGRESS NOTE Date of Evaluation: 11/23/18 1:44 PM [facility] LOS: 2 days SUBJECTIVE: Patient seen and [...] knee S/p left TKA POD#2 PT OT older adult social work specialist discharge planning DVT prophylaxis Eliquis PT OT SS for dc planning- will likely discharge next 24-48 hours to [facility] GI/DVT prophylaxis with protonix and [...] assessment and plan and agree with the METAL CAN INSPECTOR findings and plan of care as documented. I agree with their findings and plan with any exceptions or additions noted below. Doing well today. Principal Problem: Pain in left knee Active Problems: Obesity: body mass index of 30.0-34.9 Benign hypertension Rheumatoid arthritis GERD (gastroesophageal reflux disease) Synovial hernia * Demarcus Hutchison, HYDRATION PLANT OPERATOR - 11/23/2018 11:39 AM EST Formatting of [...] like knee brace had slid down leg. HYDRATION PLANT OPERATOR began with readjusting knee brace in proper [...] Transfer Skill: Sit To Stand, Rehab Eval Phelps (Sit-Stand Transfers) contact guard Physical Assist/Nonphysical Assist: Sit/Stand 1 person assist Weight-Bearing Restrictions: Sit/Stand toe touch weight-bearing Assistive Device For Transfer: Sit/Stand 2 wheeled walker Gait Skills, PT Eval Level of Phelps: Gait contact guard Weight-Bearing Restrictions: Gait toe [...] device on. Impression: status post TKA ext [facility] recon PLAN: 1. PT/OT 2. DVT prophylaxis [...] Transfer Skill: Sit To Stand, Rehab Eval Phelps (Sit-Stand Transfers) contact guard Physical Assist/Nonphysical Assist: Sit/Stand 1 person assist Weight-Bearing Restrictions: Sit/Stand toe touch weight-bearing (pt using NWB on L LE) Assistive Device For Transfer: Sit/Stand 2 wheeled walker Gait Skills, PT Eval Level of Phelps: Gait contact guard Weight-Bearing Restrictions: Gait toe touch weight-bearing (Pt using NWB on L LE) Assistive Device For Transfer: Gait 2 wheeled walker Gait Distance (20ft, 20ft) Gait Analysis, PT Eval Gait Pattern Used swing-to gait Plan Plan for next visit Plan to continue with strengthening and transfers/gait Maintain frequency yes * Aurora Arroyo, MUSIC SUPERVISOR - 11/22/2018 12:52 PM EST Call received from [facility] stating they can take patient anytime on Tuesday afternoon or after. * Demarcus Hutchison, HYDRATION PLANT OPERATOR - 11/22/2018 11:56 AM EST Formatting of [...] Transfer Skill: Sit To Stand, Rehab Eval Phelps (Sit-Stand Transfers) contact guard Physical Assist/Nonphysical Assist: Sit/Stand 1 person assist Weight-Bearing Restrictions: Sit/Stand toe touch weight-bearing (NWB on L LE) Assistive Device For Transfer: Sit/Stand 2 wheeled walker Gait Skills, PT Eval Level of Phelps: Gait contact guard Weight-Bearing Restrictions: Gait toe touch weight-bearing (pt using NWB on L LE) Assistive Device For Transfer: Gait 2 wheeled walker Gait Distance 25 feet Gait Analysis, PT Eval Gait Pattern Used swing-to gait Plan Plan for next visit Plan to continue with strengthening, transfers/gait, and practice car transfer Maintain frequency yes * HowardkelleesachinJacey bear, BATCH AND FURNACE MANAGER-METAL CAN INSPECTOR - 11/22/2018 10:52 AM EST Formatting of this note may be different from the original. DAILY PROGRESS NOTE Date of Evaluation: 11/22/18 10:53 AM [facility] LOS: 1 day SUBJECTIVE: Patient seen and [...] knee S/p left TKA POD#1 PT OT older adult social work specialist discharge planning DVT prophylaxis Eliquis PT OT SS for dc planning GI/DVT prophylaxis with protonix and SCD and Eliquis Associated attestation - Brady Lozoya MD - 11/22/2018 4:50 PM EDMUND Haskins was personally seen and examined. I agree with the examination, assessment, and plan as described below by the BATTERY BUILDER with the following additions/exceptions: Feeling well today. [...] - Continue with post operative care. * Abby RajinderNIURKA meneses-METAL CAN INSPECTOR - 11/22/2018 8:52 AM EST Formatting of [...] states that she is currently employed at [employer] in [place]. She stated that prior to the surgery she was completely independent and able to cook, clean and drive. Patient states that her goal upon discharge it to go to an extended care facility to get more therapy for her knee and regain her strength. Patient stated that she wanted to go to the [facility] as it is close to her home. Patient reviewed and signed the [facility] Nursing facility list for [place]. CM to make referral. CM to follow. [...] 0 Equipment Available wheeled walker;shower chair;elevated toilet seat;rn medicare;sock-aid;long-handled shoe horn;hand held shower hose Cognitive Status Examination Orientation Status (Cognition) oriented x 4 Level of Consciousness alert Able to Follow Commands (Communication) WNL Personal Safety and Judgment intact Short Term Memory intact Third Officer Memory intact Vision (check all that apply) Vision prescription glasses Sensory Examination Sensory Examination WFL (numbness in bilateral LE at baseline) Range of Motion (ROM) Range of Motion Examination bilateral upper extremity ROM was WFL Bed Mobility Skill: Supine to Sit, Rehab Eval Level of Phelps: Supine/Sit stand-by assist Physical Assist/Nonphysical Assist: Supine/Sit 1 person assist Transfer Skill: Sit to Stand, Rehab Eval Level of Phelps: Sit/Stand contact guard Physical Assist/Nonphysical Assist: Sit/Stand 1 person assist Weight-Bearing Restrictions: Sit/Stand toe touch weight-bearing Assistive Device for Transfer: Sit/Stand wheeled walker Upper Body Dressing Level of Phelps (set up) Lower Body Dressing Level of Phelps moderate assist (50% patients effort) Physical Assist/Nonphysical Assist 1 person assist Assistive Device rn medicare General Therapy Interventions Planned Therapy Interventions (OT [...] Impairment in Daily Activity - CH CURRENT AM-[facility] Daily Activity Inpatient Short Form Putting on/Taking [...] Goals For Discharge discharge to [facility] Discussed risk / benefits with patient Therapist Recommendations At Discharge Recommendations OT Services recommended at Discharge Plan Plan Narrative continue with bathing, dressing and transfer training Therapist Information License # [id number] 1. Pt will complete LB dressing min [...] Supine to Sit, Rehab Eval Level of Phelps: Supine/Sit stand-by assist Transfer Skill: Sit To Stand, Rehab Eval Phelps (Sit-Stand Transfers) minimum assist (75% patient effort) Weight-Bearing Restrictions: Sit/Stand toe touch weight-bearing Assistive Device For Transfer: Sit/Stand 2 wheeled walker Gait Skills, PT Eval Level of Phelps: Gait contact guard Weight-Bearing Restrictions: Gait toe [...] railing 4 - No Assistance PRIOR LEVEL AM-[facility] Mobility Raw Score 24 PRIOR LEVEL AM-[facility] Mobility Functional Limitation/Modifier 0.00% Prior Functional Impairment in Basic Mobility - CURRENT AM-[facility]AC Basic Mobility Inpatient Short Form Turning [...] 2 - A Lot of Assistance CURRENT [facility] Mobility Raw Score 17 CURRENT [facility] Mobility Functional Limitation/Modifier 50.57% Currently Impaired in Basic Mobility - CK Projected [facility] Mobility Raw Score 20 Projected [facility] Mobility Functional Limitation/Modifier 35.83% Projected Functional Impairment [...] as able. Therapist Information [place] # [id number] PT Goals: 1. Pt will demonstrate understanding [...] on LLE. PTAs notified. * Rajinder Green, BATCH AND FURNACE MANAGER-METAL CAN INSPECTOR - 11/21/2018 2:04 PM EST THIS PATIENT HAS HAD ORTHOPEDIC SURGERY AND IS EXPECTED TO HAVE PAIN REQUIRING NARCOTICS FOR >7 DAYS AND MAY NEED UP TO 12 tabs of oxycodone PER DAY AND THEREFORE 60tabs ARE BEING DISPENSED IN ACCORDANCE WITH POC DISCUSSED WITH DR MCCLURE. in this encounter* Rajinder Green, BATCH AND FURNACE MANAGER-METAL CAN INSPECTOR - 12/14/2018 3:00 PM EST Formatting of this note may be different from the original. HISTORY OF PRESENT ILLNESS: Danyelle is an established patient of mine. She is here today for followup. She is now about 3 weeks status post left extensor mechanism repair with grafting of the extensor mechanism. She reports overall she has been doing well. She has been residing in the [facility]. She has been largely nonweightbearing on the [...] per her previous regimen prescribed by her all around presser. I will leave this up to the house physician at the [facility], where she is residing today. She can [...] and concerns were addressed to her satisfaction. (DOC:[id number]) Procedures I have reviewed the findings of the clinical sales support specialist and agree with their assessment. EFREN Logan Ortho Nurse Established Patient Intake Room#: 4 Date: 12/14/2018 2:47 PM Patient: Danyelle Haskins MR#: [id number] : 1955 Age: 63 y.o. 3 wk [...] W/ IMPLANT (ECCE IOL) Bilateral 2018 [facility] TREATMENT OPEN PATELLAR FX W/ [...] mouth 3 times daily as needed. Biotin 33119 MCG Tab take 2 tablets by mouth [...] as needed. , Disp: , Rfl: Biotin 05468 MCG Tab, take 2 tablets by mouth [...] 12/14/2018 2:47 PM Patient: Danyelle Haskins MR#: [id number] : 1955 Age: 63 y.o. 3 wk s/p L knee revision. Pt states she is doing well, denies any pain. T ROM brace in place lockedin extension. Referring Physician: Rajinder Green, NIURKA-METAL CAN INSPECTOR Insurance: Payor: MEDICARE / Plan: MEDICARE A [...] W/ IMPLANT (ECCE IOL) Bilateral 2018 [facility] TREATMENT OPEN PATELLAR FX W/ [...] mouth 3 times daily as needed. Biotin 47723 MCG Tab take 2 tablets by mouth [...] as needed. , Disp: , Rfl: Biotin 90064 MCG Tab, take 2 tablets by mouth [...] have reviewed the findings of the clinical sales support specialist and agree with their assessment. New Mcclure MD Ortho Nurse Established Patient Intake Room#: 3 Date: 03/01/2019 2:16 PM Patient: Danyelle Haskins MR#: [id number] : 1955 Age: 63 y.o. 6wk F/U [...] W/ IMPLANT (ECCE IOL) Bilateral 2017 [facility] TREATMENT OPEN PATELLAR FX W/ [...] mouth 3 times daily as needed. Biotin 41579 MCG Tab take 2 tablets by mouth [...] as needed. , Disp: , Rfl: Biotin 88963 MCG Tab, take 2 tablets by mouth [...] 03/01/2019 2:16 PM Patient: Danyelle Haskins MR#: [id number] : 1955 Age: 63 y.o. 6wk F/U [...] W/ IMPLANT (ECCE IOL) Bilateral 2017 [facility] TREATMENT OPEN PATELLAR FX W/ [...] mouth 3 times daily as needed. Biotin 85688 MCG Tab take 2 tablets by mouth [...] as needed. , Disp: , Rfl: Biotin 60031 MCG Tab, take 2 tablets by mouth [...] have reviewed the findings of the clinical sales support specialist and agree with their assessment. New Mcclure MD Ortho Nurse Established Patient Intake Room#: 4 F/U Right hip, feeling better, pain of 5-6 when doing steps, done with PT; Left TKA 11-21-18, last PT was yesterday, pain of 1-2 Date: 04/18/2019 4:31 PM Patient: Danyelle Haskins MR#: [id number] : 1955 Age: 63 y.o. Referring Physician: [...] Veterans Pain Rating Scale) (Adult- Cognitively Intact) (06/12/19 1629) Recent Labs No results found for: CRP [...] W/ IMPLANT (ECCE IOL) Bilateral 2017 [facility] TREATMENT OPEN PATELLAR FX W/ [...] mouth 3 times daily as needed. Biotin 70907 MCG Tab take 2 tablets by mouth [...] as needed. , Disp: , Rfl: Biotin 30453 MCG Tab, take 2 tablets by mouth [...] 04/18/2019 4:31 PM Patient: Danyelle Haskins MR#: [id number] : 1955 Age: 63 y.o. Referring Physician: [...] W/ IMPLANT (ECCE IOL) Bilateral 2017 [facility] TREATMENT OPEN PATELLAR FX W/ [...] mouth 3 times daily as needed. Biotin 99799 MCG Tab take 2 tablets by mouth [...] as needed. , Disp: , Rfl: Biotin 09822 MCG Tab, take 2 tablets by mouth [...] perhaps not, though she is closer towards fpc. She has had previous extensor mechanism reconstruction [...] of the right knee, which demonstrate knee, [id number]-ulds arthritis of the lateral compartment, and multiple views of the left knee demonstrate a previous total knee arthroplasties in both knees on the medial compartment. Stable position of the extensor mechanism reconstruction and some 30 degrees subluxation of her patella. IMPRESSION: 1. Status post extensor mechanism reconstruction with mesh, left knee. 2. Severe arthritis, right knee. PLAN: I reviewed my findings with Daynelle today. radiographs. The extensor mechanism is functioning [...] she like to proceed with surgical revision. (DOC:[id number]) LARGE JOINT INJECTION: R knee Date/Time: 11/21/2019 [...] have reviewed the findings of the clinical sales support specialist and agree with their assessment. New Mcclure MD Ortho Nurse Established Patient Intake Room#: 3---1 year post-op check for left TKA . She has been doing well. Date: 11/21/2019 1:38 PM Patient: Danyelle Haskins MR#: [id number] : 1955 Age: 64 y.o. Referring Physician: [...] W/ IMPLANT (ECCE IOL) Bilateral 2018 [facility] TREATMENT OPEN PATELLAR FX W/ [...] mouth 3 times daily as needed. Biotin 13840 MCG Tab take 2 tablets by mouth [...] 11/21/2019 1:38 PM Patient: Danyelle Haskins MR#: [id number] : 1955 Age: 64 y.o. Referring Physician: [...] W/ IMPLANT (ECCE IOL) Bilateral 2017 [facility] TREATMENT OPEN PATELLAR FX W/ [...] mouth 3 times daily as needed. Biotin 08919 MCG Tab take 2 tablets by mouth [...] have reviewed the findings of the clinical sales support specialist and agree with their assessment. Ortho Nurse Established Patient Intake Room#: 2 2 year Left TKA 11-21-18, pain of 2, cannot straighten her leg and it varinder, Amoxicillin was ordered today Date: 11/19/2020 2:31 PM Patient: Danyelle Haskins MR#: [id number] : 1955 Age: 65 y.o. Referring Physician: [...] W/ IMPLANT (ECCE IOL) Bilateral 2018 [facility] TREATMENT OPEN PATELLAR FX W/ [...] Take 500 mg by mouth daily. Biotin 20384 MCG Tab take 2 tablets by mouth 2 times daily.. Calcium Carb-Cholecalciferol (CALCIUM 600 + D) 600-200 MG-UNIT Tab tablet Take 2.5 tablets by mouthDaily (with lunch). Diclofenac Sodium 1 % Gel gel Diclofenac Diclofenac Sodium Active 4 GM Topical Four times daily October 01, 2020 10:38am 10-01-2020 [facility] ([id number]) ferrous sulfate 325 (65 Fe) MG Tab [...] by mouth daily., Disp: , Rfl: Biotin 82681 MCG Tab, take 2 tablets by mouth 2 times daily.. , Disp: , Rfl: Calcium Carb-Cholecalciferol (CALCIUM 600 + D) 600-200 MG-UNIT Tab tablet, Take 2.5 tablets by mouth Daily (with lunch). , Disp: , Rfl: Diclofenac Sodium 1 % Gel gel, Diclofenac Diclofenac Sodium Active 4 GM Topical Four times daily October 01, 2020 10:38am 10-01-2020 [facility] ([id number]), Disp: , Rfl: ferrous sulfate 325 (65 [...] 11/19/2020 2:31 PM Patient: Danyelle Haskins MR#: [id number] : 1955 Age: 65 y.o. Referring Physician: [...] W/ IMPLANT (ECCE IOL) Bilateral 2018 [facility] TREATMENT OPEN PATELLAR FX W/ [...] Take 500 mg by mouth daily. Biotin 27136 MCG Tab take 2 tablets by mouth 2 times daily.. Calcium Carb-Cholecalciferol (CALCIUM 600 + D) 600-200 MG-UNIT Tab tablet Take 2.5 tablets by mouthDaily (with lunch). Diclofenac Sodium 1 % Gel gel Diclofenac Diclofenac Sodium Active 4 GM Topical Four times daily October 01, 2020 10:38am 10-01-2020 [facility] ([id number]) ferrous sulfate 325 (65 Fe) MG Tab [...] by mouth daily., Disp: , Rfl: Biotin 51468 MCG Tab, take 2 tablets by mouth 2 times daily.. , Disp: , Rfl: Calcium Carb-Cholecalciferol (CALCIUM 600 + D) 600-200 MG-UNIT Tab tablet, Take 2.5 tablets by mouth Daily (with lunch). , Disp: , Rfl: Diclofenac Sodium 1 % Gel gel, Diclofenac Diclofenac Sodium Active 4 GM Topical Four times daily October 01, 2020 10:38am 10-01-2020 [facility] ([id number]), Disp: , Rfl: ferrous sulfate 325 (65 [...] have reviewed the findings of the clinical sales support specialist and agree with their assessment. New Mcclure MD Ortho Nurse Established Patient Intake Room#: 3 6 week F/U left knee ext mechanism repair, no C/O pain Date: 01/03/2019 3:26 PM Patient: Danyelle Haskins MR#: [id number] : 1955 Age: 63 y.o. Referring Physician: [...] W/ IMPLANT (ECCE IOL) Bilateral 2017 [facility] TREATMENT OPEN PATELLAR FX W/ [...] mouth 3 times daily as needed. Biotin 46669 MCG Tab take 2 tablets by mouth [...] as needed. , Disp: , Rfl: Biotin 04897 MCG Tab, take 2 tablets by mouth [...] 01/03/2019 3:26 PM Patient: Danyelle Haskins MR#: [id number] : 1955 Age: 63 y.o. Referring Physician: [...] W/ IMPLANT (ECCE IOL) Bilateral 2018 [facility] TREATMENT OPEN PATELLAR FX W/ [...] mouth 3 times daily as needed. Biotin 48979 MCG Tab take 2 tablets by mouth [...] as needed. , Disp: , Rfl: Biotin 13160 MCG Tab, take 2 tablets by mouth [...] left- Primary Hospital Course * Tanvi Hernandez, METAL CAN INSPECTOR - 11/24/2018 11:21 AM EST Formatting of this note may be different from the original. Discharge Summary Name: Danyelle Haskins Age: 63 y.o. Birthday: 1955 Admit Date: 11/21/2018 8:19 AM Discharge Date: 11/24/2018 Brief Summary of Hospital Course: Pain in left knee S/p left TKA POD#3 PT OT older adult social work specialist discharge planning DVT prophylaxis Lori Will dc [...] % LIQD Commonly known as: HIBICLENS hydroxychloroquine ([facility]-18710) 200 MG TABS leflunomide 20 MG TABS [...] as needed. Commonly known as: LIORESAL Biotin 26161 MCG TABS take 2 tablets by mouth [...] tolerated. Discharge Follow-up: New Mcclure MD [facility] [facility] [address] In 3 weeks Discharge Disposition: Patient will be discharged in stable condition. Discharge Time: Including assessment, planning, and medication reconciliation was greater than 35 min. Tanvi Hernandez DNP completing Discharge Summary for Dr. Vance Please note Portions of this note utilized [employer] dictation software, please excuse any typographical or [...] be removed by a nurse at the [place] 10-14 days after surgery. Your surgery d [...] - 11/24/2018 5:16 PM EST Contact Office ([phone]) if: > Total Knee ROM < 90 [...] Care Everywhere. * Acetaminophen tablets or caplets (Zambian) * Apixaban oral tablets (Zambian) * Docusate capsules ([place]ambian) * Oxycodone tablets or capsules ([place]ambian) in this encounter Chief Complaint and Reason [...] er 2024 10:38am Chief Complaint Admit Date EMG BLE per [place] June 26, 2025 1: 24pm Follow up 3 month July 17, 2025 10:38am FACET - R L4/5 & L5/SI-- NPCR; Medicare/ Supplement July 23, 2025 9:39am BOTOX-- NPCR; Traditional Medicare Novem 2024 9:46am Reason for Visit Admit Date Facet arthropathy, lumbar July 10:38am Blepharospasm July 17, 2025 10:38am Carpal tunnel syndrome, bilateral Septem 2024 10:38am Polyneuropathy July 17, 2025 10:38am Spinal stenosis of lumbar region Septemb er 2024 10:38am Facet arthropathy, lumbar July 9:39am Additional Source Comments INFORMATION SOURCE (unrecogn ized section and content) DATE CREATED AUTHOR 05/02/2018 [facility] DATE CREATED AUTHOR AUTHOR'S ORGANIZ ATION 05/02/[address] [facility] DATE CREATED AUTHOR AUTHOR'S ORGANIZ ATION 05/05/2018 [facility] DATE CREATED AUTHOR AUTHOR'S ORGANIZ ATION 03/22/2020 [facility] DATE CREATED AUTHOR AUTHOR'S ORGANIZ ATION 02/01/2022 [facility] DATE CREATED AUTHOR AUTHOR'S ORGANIZ ATION 02/13/2023 [facility] DATE CREATED AUTHOR AUTHOR'S ORGANIZ ATION 07/09/2023 [facility] DATE CREATED AUTHOR AUTHOR'S ORGANIZ ATION 11/30/2024 [facility] DATE CREATED AUTHOR AUTHOR'S ORGANIZ ATION 09/06/2025 [facility] EPIC Reason for Visit (unrecogniz ed section and content) ReasonCommentsPreoperative Nurse AssessmentSurgery scheduled 11/21/18StatusReason SpecialtyDiagnoses / ProceduresReferred By ContactReferred To Contact Diagnoses 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] New Mcclure MD [address] [place] [address] StatusReasonSpecialtyDiagnoses / ProceduresReferred By ContactReferred To ContactNew Request Diagnoses Hx of total knee arthroplasty, left Procedures XR KNEE LEFT 2 VIEWS XR KNEE LEFT 3 VIEWS Rajinder Green, BATCH AND FURNACE MANAGER-METAL CAN INSPECTOR [address] [place] [address] ReasonCommentsPost Op VisitReasonCommentsLeg SwellingReasonCommentsFollow-upPost Op VisitStatusReasonSpecialtyDiagnoses / ProceduresReferred By ContactReferred To ContactNew Request Diagnoses Left knee pain, unspecified chronicity Procedures XR KNEE LEFT 2 VIEWS XR KNEE LEFT 3 VIEWS New Mcclure MD [address] [place] [address] ReasonCommentsFollow-upStatusReasonSpecialtyDiagnoses / ProceduresReferred By ContactReferred To ContactPending Review Diagnoses History of total knee arthroplasty, left Procedures XR KNEE LEFT 3 VIEWS New Mcclure MD [address] [place] [address] ReasonCommentsPost Op VisitReasonCommentsFollow-upReasonCommentsSkin Problem StatusReasonSpecialtyDiagnoses / ProceduresReferred By ContactReferred To ContactNew Request Diagnoses Hx of total knee arthroplasty, left Procedures XR KNEE LEFT 3 VIEWS New Mcclure MD [address] [place] [address] StatusReasonSpecialtyDiagnoses / ProceduresReferred By ContactReferred To ContactNew Request Diagnoses Right hip pain Procedures XR HIP WITH PELVIS RIGHT New Mcclure MD [address] [place] [address] ReasonCommentsFollow-upSpecialtyDiagnoses / ProceduresReferred By Contact Referred To Contact Diagnoses Hx of total knee arthroplasty, right Procedures XR KNEE RIGHT 3 VIEWS Rajinder Green APRN-MARTY [address] [place] [address] Referral IDStatusReasonStart DateExpiration DateVisits RequestedVisits [id number] Request/[id number] / Procedures Referred By ContactReferred To Contact Diagnoses Hx of total knee arthroplasty, right Procedures XR BONE LENGTH STUDY New Mcclure MD [address] [place] [address] Referral IDStatusReasonStart DateExpiration DateVisits RequestedVisits [id number] CommentsPreoperative AssessmentLTKA revision w/poss extensor mechanism reconstruction 11/29 SAF Pg *PAT ONLY SpecialtyDiagnoses / ProceduresReferred By ContactReferred To Contact Diagnoses Preop testing Procedures PREPARE TO TRANSFUSE RED BLOOD CELLS New Mcclure MD [address] [place] [address] Referral IDStatusReasonStart DateExpiration DateVisits RequestedVisits [id number] / ProceduresReferred By ContactReferred To Contact Diagnoses Hx of total knee arthroplasty, left Procedures XR KNEE LEFT 1-2 VIEWS XR KNEE LEFT 3 VIEWS Rajinder Green, BATCH AND FURNACE MANAGER-METAL CAN INSPECTOR [address] [place] [address] Referral IDStatusReasonStart DateExpiration DateVisits RequestedVisits [id number] Request/[id number] / Procedures Referred By ContactReferred To Contact Diagnoses Right knee pain, unspecified chronicity Procedures XR KNEE RIGHT 3 VIEWS New Mcclure MD [address] [phone] Referral IDStatusReasonStart DateExpiration DateVisits RequestedVisits [id number] Request/[id number]hkj Diagnoses / ProceduresReferred By ContactReferred To Contact Diagnoses Hx of total knee arthroplasty, left Procedures XR BONE LENGTH STUDY Rajinder Green, BATCH AND FURNACE MANAGER-METAL CAN INSPECTOR [address] [phone] Referral IDStatusReasonStart DateExpiration DateVisits RequestedVisits [id number] Request/[id number]-gnJlakbe CommentsFollow-up14d s/p I&dReasonCommentsToenail CareNon Dm NailsReasonComments Back PainNumbnessReasonCommentsIngrown ToenailRt gt ingrownReasonComments Botulinum Toxin InjectionReasonOnset PuhnLeusofihPm08/23/2024ReasonComments Follow-up14d s/p rt gt avulsionReasonCommentsToenail CareNon dm nail care SpecialtyDiagnoses / ProceduresReferred By ContactReferred To Contact Diagnoses Hx of total knee arthroplasty, right Procedures XR KNEE RIGHT 1-2 VIEWS XR KNEE RIGHT 3 VIEWS New Mcclure MD [address] [phone] Referral IDStatusReasonStart DateExpiration DateVisits RequestedVisits [id number] Request/[id number]fl Pain BlepharospasmReasonCommentsFoot UlcerCallous infected, turned into ulcerReason CommentsFollow-upLt 3rd cellulitisReasonCommentsFollow-upLt 3rd ulcerReason CommentsPost-op1ST POST- LEFT PIPJReasonCommentsPost-op14d s/p lt 3rd pipjReason CommentsPost-op21d s/p lt 3rd pipjReasonCommentsPost-op5wk lt 3rd pipjReason Onset DateCommentsMed Ronsyv9903/20/2025ReasonCommentsMacular DegenerationReason CommentsToenail Care Care Teams (unrecognized sec tion and content) Team MemberRelationshipSpecialtyStart DateEnd Date Yulisa Batres MD [address] [facility] [place] [address] PCP - GeneralFamily Medicine03/18/23Team MemberRelationshipSpecialtyStart DateEnd Date Yulisa Batres MD [address] [place] [address] PCP - Generalmi Medicine03/18/23Team MemberRelationshipSpecialtyStart DateEnd Date Yulisa Batres MD [address] [place] [address] PCP - GeneralFamily Medicine03/18/23Team MemberRelationshipSpecialtyStart DateEnd Date Yulisa Batres MD [address] [place] [address] PCP - GeneralFamily Medicine03/18/23Team MemberRelationshipSpecialtyStart DateEnd Date Yulisa Batres MD [address] [place] [address] PCP - GeneralFamily Medicine03/18/23Team MemberRelationshipSpecialtyStart DateEnd Date Yulisa Batres MD [address] [place] [address] PCP - GeneralFamily Medicine03/18/23Team MemberRelationshipSpecialtyStart DateEnd Date Yulisa Batres MD [address] [facility] [place] [address] [place] [address] PCP - GeneralFamily Medicine03/18/23Team MemberRelationshipSpecialtyStart DateEnd Date Yulisa Batres MD [address] [facility] [place] [address] [place] [address] PCP - GeneralFamily Medicine03/18/23Team MemberRelationshipSpecialtyStart DateEnd Date Yulisa Batres MD [address] [facility] [place] [address] [place] [address] PCP - GeneralFamily Medicine03/18/23Team MemberRelationshipSpecialtyStart DateEnd Date Yulisa Batres MD [address] [facility] [place] [address] [place] [address] PCP - GeneralFamily Medicine03/18/23Team MemberRelationshipSpecialtyStart DateEnd Date Yulisa Batres MD [address] [facility] [place] [address] [place] [address] PCP - GeneralFamily Medicine03/18/23Team MemberRelationshipSpecialtyStart DateEnd Date Yulisa Batres MD [address] [facility] [place] [address] [place] [address] PCP - GeneralFamily Medicine03/18/23Team MemberRelationshipSpecialtyStart DateEnd Date Yulisa Batres MD [address] [facility] [place] [address] [place] [address] PCP - GeneralFamily Medicine03/18/23Team MemberRelationshipSpecialtyStart DateEnd Date Yulisa Batres MD [address] [facility] [place] [address] PCP - [facility]03/18/23Team MemberRelationshipSpecialtyStart DateEnd Date Yulisa Batres MD [address] [facility] [place] [place] [address] PCP - General07/06/23 Gaby Christianson, HARPAL [address] [place] [phone] Nurse PractitionerNeurology01/26/24 Darren Monaco MD [address] [facility] Professional building 1 [place] [address] Referring PhysicianRheumatology07/31/24Team MemberRelationshipSpecialtyStart Date End Date Yulisa Batres MD [address] [facility] [place] [place] [address] PCP - General07/06/23 Gaby Christianson, HARPAL [address] [phone] Nurse PractitionerNeurology01/26/24 Darren Monaco MD [address] [facility] Professional building 1 [place] [address] Referring PhysicianRheumatology07/31/24Team MemberRelationshipSpecialtyStart Date End Date Yulisa Batres MD [address] [facility] [place] [place] [address] PCP - General07/06/23 Gaby Christianson NP [address] [phone] Nurse PractitionerNeurology01/26/24 Darren Monaco MD [address] [facility] Professional building [address] [place] [phone] Referring PhysicianRheumatology07/31/24Team MemberRelationshipSpecialtyStart Date End Date Yulisa Batres MD [address] [place] [address] PCP - General07/06/23 Gaby Christianson NP [address] [phone] Nurse PractitionerNeurology01/26/24Team MemberRelationshipSpecialtyStart DateEnd Date Yulisa Batres MD [address] [place] [address] PCP - General07/06/23 Gaby Christianson NP [address] [phone] Nurse PractitionerNeurology01/26/24Team MemberRelationshipSpecialtyStart DateEnd Date Yulisa Batres MD [address] [place] [address] PCP - General07/06/23 Gaby Christianson NP [address] [address] Nurse PractitionerNeurology01/26/24 Darren Monaco MD [address] [facility] Professional building 1 [place] [address] Referring PhysicianRheumatology07/31/24Team MemberRelationshipSpecialtyStart Date End Date Yulisa Batres MD [address] [place] [address] PCP - General07/06/23 Gaby Christianson, HARPAL [address] [phone] Nurse PractitionerNeurology01/26/24 Darren Monaco MD [address] [facility] Professional building 1 [place] [address] Referring PhysicianRheumatology07/31/24Team MemberRelationshipSpecialtyStart Date End Date Yulisa Batres MD [address] [place] [address] PCP - General07/06/23 Gaby Christianson, HARPAL [address] [address] Nurse PractitionerNeurology01/26/24 Darren Monaco MD [address] [facility] Professional building 1 [place] [address] Referring PhysicianRheumatology07/31/24Team MemberRelationshipSpecialtyStart Date End Date Yulisa Batres MD [address] [place] [address] PCP - General07/06/23 Gaby Christianson NP [address] [address] Nurse PractitionerNeurology01/26/24 Darren Monaco MD [address] [facility] Professional building [address] [place] [phone] Referring PhysicianRheumatology07/31/24Team MemberRelationshipSpecialtyStart Date End Date Yulisa Batres MD [address] [place] [address] PCP - General07/06/23 Gaby Christianson NP [address] [phone] Nurse PractitionerNeurology01/26/24Team MemberRelationshipSpecialtyStart DateEnd Date Yulisa Batres MD [address] [place] [address] PCP - General07/06/23 Gaby Christianson NP [address] [phone] Nurse PractitionerNeurology01/26/24Team MemberRelationshipSpecialtyStart DateEnd Date Yulisa Batres MD [address] [place] [address] PCP - General07/06/23 Gaby Christianson NP [address] [address] Nurse PractitionerNeurology01/26/24Team MemberRelationshipSpecialtyStart DateEnd Date Yulisa Batres MD [address] [facility] [place] [address] PCP - General07/06/23 Gaby Christianson NP [address] [place] [address] Nurse PractitionerNeurology01/26/24Team MemberRelationshipSpecialtyStart DateEnd Date Yulisa Batres MD [address] [facility] [place] [place] [address] PCP - General07/06/23 Gaby Christianson NP [address] [place] [address] Nurse PractitionerNeurology01/26/24 Darren Monaco MD [address] [facility] Professional building [address] [place] [phone] Referring PhysicianRheumatology07/31/24Team MemberRelationshipSpecialtyStart Date End Yulisa Batres MD [address] [facility] [place] [place] [address] PCP - General07/06/23 Gaby Christianson NP [address] [address] Nurse PractitionerNeurology01/26/24Team MemberRelationshipSpecialtyStart DateEnd Date Yulisa Batres MD [address] [facility] [place] [place] [address] PCP - General07/06/23 Gaby Christianson, HARPAL [address] [place] [phone] Nurse PractitionerNeurology01/26/24 Darren Monaco MD [address] [facility] Professional building 1 [place] [address] Referring PhysicianRheumatology07/31/24Team MemberRelationshipSpecialtyStart Date End Date Yulisa Batres MD [address] [place] [address] PCP - General07/06/23 Gaby Christianson NP [address] [place] [phone] Nurse PractitionerNeurology01/26/24 Darren Monaco MD [address] [facility] Professional building 1 [place] [address] Referring PhysicianRheumatology07/31/24Team MemberRelationshipSpecialtyStart Date End Date Yulisa Batres MD [address] [place] [address] PCP - GeneralFamily Medicine03/18/23Team MemberRelationshipSpecialtyStart DateEnd Date Yulisa Batres MD [address] [facility] [place] [address] PCP - GeneralFamily Medicine03/18/23Team MemberRelationshipSpecialtyStart DateEnd Date Yulisa Batres MD [address] [place] [address] PCP - General07/06/23 Gaby Christianson NP [address] [phone] Nurse PractitionerNeurology01/26/24 Darren Monaco MD [address] Professional building 1 [place] [address] Referring PhysicianRheumatology07/31/24Team MemberRelationshipSpecialtyStart Date End Date Yulisa Batres MD [address] [place] [address] PCP - General07/06/23 Gaby Christianson NP [address] [phone] Nurse PractitionerNeurology01/26/24 Darren Monaco MD [address] Professional building [address] [place] [address] Referring PhysicianRheumatology07/31/24Team MemberRelationshipSpecialtyStart Date End Date Yulisa Batres MD [address] [place] [address] PCP - General07/06/23 Gaby Christianson NP [address] [address] Nurse PractitionerNeurology01/26/24 Darren Monaco MD [address] Professional building [address] [place] [address] Referring PhysicianRheumatology07/31/24Team MemberRelationshipSpecialtyStart Date End Date Yulisa Batres MD PCP - General07/06/23 Gaby Christianson, CAT SCAN TECH [address] [address] Nurse PractitionerNeurology01/26/24 Darren Monaco MD [address] Professional building [address] [place] [address] Referring Physicianeumatology07/31/24Team MemberRelationshipSpecialtyStart Date End Date Yulisa Batres MD PCP General07/06/23 Gaby Christianson, HARPAL [address] [phone] Nurse PractitionerNeurology01/26/24 Darren Monaco MD [address] Professional building [address] [place] [address] Referring PhysicianRheumatology07/31/24Team MemberRelationshipSpecialtyStart Date End Date Yulisa Batres MD PCP General07/06/23 Gaby Christianson NP [address] [address] Nurse PractitionerNeurology01/26/24 Darren Monaco MD [address] Professional building [address] [place] [address] Referring PhysicianRheumatology07/31/24 Team Status: Active Member Role [...] Nurse PractitionerNeurology01/26/24 Darren Monaco MD [address] [facility] Professional building 1 [place] [address] Referring Physicianeumatology07/31/24Team MemberRelationshipSpecialtyStart Date End Date Yulisa Batres MD PCP - General07/06/23 Gaby Christianson NP Nurse PractitionerNeurology01/26/24 Darren Monaco MD [address] [facility] Professional building 1 [place] [address] Referring PhysicianRheumatology07/31/24 Team Status: Inactive Member Role Status Dates Yulisa Batres MD Primary Care Provider Active Start: June 13, 2025 End: June 13, 2025NicMedardo Schuler ProviderActiveStart: June 13, 2025 End: June 13, 2025Team MemberRelationshipSpecialtyStart DateEnd Date Yulisa Batres MD [address] [place] [address] PCP - General07/06/23 Gaby Christianson, HARPAL [address] [place] [address] Nurse PractitionerNeurology01/26/24 Darren Monaco MD [address] [facility] Professional building 1 [place] [address] Referring PhysicianRheumatology07/31/24Team MemberRelationshipSpecialtyStart Date End Date Yulisa Batres MD [address] [facility] [place] [address] PCP - General07/06/23 Gaby Christianson, HARPAL [address] [facility] [place] [address] Nurse PractitionerNeurology01/26/24 Darren Monaco MD [address] [facility] Professional building 1 [place] [address] Referring PhysicianRheumatology07/31/24 Team Status: Inactive Member Role [...] DateEnd Date Yulisa Batres MD [address] [place] [address] PCP - General07/06/23 Gaby Christianson NP [address] [facility] [place] [place] [address] Nurse PractitionerNeurology01/26/24 Darren Monaco MD [address] [place] [address] [address] [place] [address] Referring PhysicianRheumatology07/31/24Team MemberRelationshipSpecialtyStart Date End Yulisa Batres MD [address] [facility] [place] [place] [address] PCP - General07/06/23 Gaby Christianson, HARPAL [address] [place] [address] Nurse PractitionerNeurology01/26/24 Darren Monaco MD [address] [place] [address] Professional building [address] [place] [address] Referring PhysicianRheumatology07/31/24 Team Status: Active Member Role/Relationship Status Dates Yulisa Batres MD Primary Care Provider Active Team Status: Inactive Member Role/Relationship Status Dates Yulisa Batres MD Primary Care Provider Active Start: June 26, 2025 End: June 26Medardo Villanueva ProviderActiveStart: June 26, 2025 End: June 26, 2025 Team Status: Inactive Member Role/Relationship Status Dates Yulisa Batres MD Primary Care Provider Active Start: July 17, 2025 End: July 17Medardo Villanueva ProviderActive Start: July 17, 2025 End: July 17, 2025 Team Status: Inactive Member Role/Relationship Status Dates Yulisa Batres MD Primary Care Provider Active Start: July 23, 2025 End: July 23Medardo Villanueva ProviderActive Start: July 23, 2025 End: July 23, 2025 Team Status: Inactive Member Role/Relationship Status Alex Batres MD Primary Care Provider Active Start: September 18, 2025 End: September 18, 2025Medardo Perkins ProviderActiveStart: September 18, 2025 End: September 18, 2025 Goals (unrecognized section and content) Goals [...] BE BASED ON THE PRIMARY CLINICAL RECORDS. [facility]. provides no warranty or guarantee of the accuracy or completeness of information in this document.
--- NOTE | 2025-11-06 06:38 | MR_ITS ---
The [address] [address] Patient Name: YELENA HASKINS MRN: [id number] date: 1955 Sex: F Assigned Patient Location: MRI Current Patient Location: MRI Accession/Order Number: [id number] Exam Date: 11/06/2025 06:45 Report Date: 11/06/2025 10:34 At the request of: SHALINI STRICKLAND DO Procedure: MR cervical spine wo con EXAMINATION: MRI OF THE CERVICAL SPINE WITHOUT CONTRAST CLINICAL DATA: cervical myelopathy TECHNIQUE: Multiecho imaging was performed in the sagittal and axial plane without contrast administration. FINDINGS: Craniocervical junction is maintained. Cervical vertebral heights preserved. Alignment anatomic. [id number] disc space narrowing C6-7 and minimal interspace narrowing C4-C6. Multilevel facet arthropathy. Cervical cord demonstrates normal signal and morphology. Prevertebral and paraspinal soft tissues are unremarkable C2-C3: Small central disc osteophyte complex. Bilateral facet arthropathy. Canal neural foramina patent. C3-C4: Small central disc osteophyte complex. Central canal or neural foraminal is patent. Unremarkable facet joints. C4-C5: Broad-based disc by complex with minimal right and left uncovertebral spurring. There is moderate left facet arthropathy. This results in mild left neural from narrowing. Minor central canal stenosis. Right foramen is patent. C5-C6: Broad-based disc osteophyte complex with minimal uncovertebral spurring. Mild dorsal ligament of flavum hypertrophy. Minimal facet arthropathy. Minor central canal narrowing. Foramina patent. C6-C7: Circumferential disc osteophyte complex with minimal uncovertebral spurring. Mild facet arthropathy and dorsal ligament of flavum hypertrophy identified. This results in mild to moderate central canal stenosis. Minimal foraminal narrowing. C7-T1: Mild facet arthropathy. No significant disc disease central canal or neural foraminal narrowing identified. MR/MR cervical spine wo con IMPRESSION: Overall mild degenerative changes greatest at C6-C7 Impression dictated by: Pio Ross M.D. 11/06/2025 10:34 AM Dictation Location: [place] [address] Electronically authenticated by: [id number] Date: 11/06/2025 10:34
--- NOTE | 2025-11-06 07:27 | XR_ITS ---
The [place] [id number] Patient Name: YELENA HASKINS MRN: [id number] date: 1955 Sex: F Assigned Patient Location: MRI Current Patient Location: MRI Accession/Order Number: [id number] Exam Date: 11/06/2025 07:20 Report Date: 11/06/2025 11:39 At the request of: SHALINI STRICKLAND DO Procedure: XR lumbar spine min 4V LUMBAR SPINE WITH FLEXION-EXTENSION VIEWS - 4 views: CLINICAL HISTORY: Chronic back pain. Previous fusion COMPARISON: MRI 05/07/2025 AP as well as lateral views in neutral, flexion and extension were obtained. There is thoracolumbar levoscoliotic curvature. Patient status post laminectomy and fusion with posterior rods and pedicle screws extending from L2 through L5. There are interbody fusion devices at L3-4 and L4-5. The hardware was also present previously and appears intact. No acute compression fractures are noted. There is minimal retrolisthesis of L1 on L2. Alignment does not change significantly with flexion or extension. There is narrowing of the disc spaces above and below the levels of fusion. There is endplate sclerosis at L1-2. Endplate spurring is seen throughout. There is facet hypertrophy. The sacroiliac joints are maintained. There are no paraspinal soft tissue abnormalities. XR/XR lumbar spine min 4V IMPRESSION: SCOLIOSIS WITH POSTOPERATIVE AND DEGENERATIVE CHANGES, DESCRIBED. Impression dictated by: Sarah Wood M.D. 11/06/2025 11:39 AM Dictation Location: [facility] Electronically authenticated by: [id number] Date: 11/06/2025 11:39
== END 2025-11-06 06:35 | disposition home or self-care (01) ==
LOC: MRI 06:34
PROVIDERS: PCP Family Medicine; Visit Provider Neurological Surgery
DX: G95.9 Disease of spinal cord, unspecified (principal); M54.50 Low back pain, unspecified
CPT/HCPCS: 72110; 72141